=== PATIENT | female | born 2000 | race Caucasian/White ===

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

== ENCOUNTER → 2022-02-07 | Outpatient (CLI) | payer MEDICAID, SELFPAY ==
[2022-02-07 16:40] LABS: Prolactin 27.2 ng/mL; T4 Free Direct 0.91 ng/dL (0.76-1.46); Thyroid Stim Hormone (TSH) 1.76 uIU/mL (0.358-3.74)
[2022-02-07 17:16] LABS: HIV - WCH Non-Reactive (Nonreactive); Syphilis Antibodies Non-reactive
[2022-02-08 15:16] LABS: Hepatitis B Surface Antibody Non-Reactive
[2022-02-09 07:07] LABS: HEPATITIS B SURFACE AG Negative (Negative); Hep C Antibodies <0.1 s/co ratio (0.0-0.9); Hepatitis A IgM Antibody Negative (Negative); Hepatitis B Core AB IgM Negative (Negative)
[2022-02-09 11:06] LABS: Hepatitis A AB, Total Positive (Negative)
== END | disposition home or self-care (01) ==
LOC: WOBLAB 11:14
PROVIDERS: Visit Provider Obstetrics & Gynecology
DX: Z11.3 Encounter for screening for infections with a predominantly sexual mode of transmission (principal); N64.52 Nipple discharge
CPT/HCPCS: 36415; 80074; 84146; 84439; 84443; 86703; 86706; 86708; 86780

== ENCOUNTER → 2022-04-19 | Outpatient (CLI) | payer MEDICAID, SELFPAY ==
[2022-04-19 17:34] LABS: hCG Titer Quant., Serum 1067 mIU/mL (1-3)
== END | disposition home or self-care (01) ==
LOC: WOBLAB 15:27
PROVIDERS: Visit Provider Obstetrics & Gynecology
DX: N91.2 Amenorrhea, unspecified (principal)
CPT/HCPCS: 36415; 84702

== ENCOUNTER → 2022-05-24 | Outpatient (CLI) | payer MEDICAID, SELFPAY ==
[2022-05-24 16:37] LABS: Absolute Lymphocyte Count 1.63 X10^3/uL (0.83-4.51); Absolute Neutrophil Count 2.8 X10^3/uL (2.0-7.7); Basophil# 0.03 X10^3/uL; Basophil% 0.6 % (0-1); Eosinophil# 0.07 X10^3/uL; Eosinophils% 1.4 % (0-5); Hematocrit 37.2 % (37-47); Hemoglobin 12.2 g/dL (12.0-15.0); Lymphocyte # 1.63 X10^3/ul (0.83-4.51); Lymphocyte % 32.5 % (19-41); Mean Corp Hgb Conc 32.8 g/dL (32-36); Mean Corpuscular Hgb 29.9 pg (27.0-32.0); Mean Corpuscular Volume 91.2 fL (81-99); Mean Platelet Vol. 11.4 fl (6.2-12.0); Monocyte# 0.49 X10^3/uL; Monocyte% 9.8 % (0-10); NRBC Flagged by Analyzer 0 % (0-5); Neutrophil # 2.78 X10^3/uL (2.7-7.7); Neutrophil % 55.5 % (47-70); Platelet Count 249 K/mm3 (150-450); RBC Distribution Width CV 13.8 % (11.6-14.6); RBC Distribution Width SD 46.2 fl (35.1-43.9); Red Blood Count 4.08 M/mm3 (4.2-5.4)
[2022-05-24 17:40] LABS: HIV - WCH Non-Reactive (Nonreactive); Hepatitis B Surface Antigen Non-Reactive (Nonreactive); Hepatitis C Antibody Non-Reactive (Nonreactive); Rubella IgG Reactive (Nonreactive); Syphilis Antibodies Non-reactive
[2022-05-26 08:31] LABS: V-Zoster IgG (Immunity) 404 index (Immune >165)
== END | disposition home or self-care (01) ==
LOC: WOBLAB 15:59
PROVIDERS: Visit Provider Obstetrics & Gynecology
DX: Z34.81 Encounter for supervision of other normal pregnancy, first trimester (principal)
CPT/HCPCS: 36415; 85025; 86703; 86762; 86780; 86787; 86803; 87086; 87340

== ENCOUNTER 2022-08-17 10:14 | Emergency (ER) | payer MEDICAID, SELFPAY ==
[2022-08-17 10:15] VITALS: BP 102/58; PULSE 74; RESP 161; TEMP 36.2; O2SAT 99
--- NOTE | 2022-08-17 10:39 | US_ITS ---
HISTORY: stones, pain. TECHNIQUE: Tyler scale and color doppler imaging was performed of the right upper quadrant. 96 images. COMPARISON: None. FINDINGS: LIVER: 15.5 cm in length. Mildly echogenic without focal lesion demonstrated. No intrahepatic ductal dilatation reported. MAIN PORTAL VEIN: Patent with flow in the appropriate direction. COMMON BILE DUCT: 4 mm in diameter. GALLBLADDER: Two 6-7 mm gallstones in the distended gallbladder. 2 mm wall thickness, within normal limits. No pericholecystic fluid. Sonographic Maynard sign negative. PANCREAS: Visualized proximal portion unremarkable. RIGHT KIDNEY: 10.8 cm in length with a cortical thickness of 1.4 cm with a small extrarenal pelvis. No hydronephrosis or gross renal mass demonstrated. US/Gallbladder IMPRESSION: Cholelithiasis with gallbladder distention but no gallbladder wall thickening. Mild hepatic steatosis. Electronically Signed: Leila Thompson MD at 11:53 EDT ,
--- NOTE | 2022-08-17 10:40 | ED.VIS.GI ---
HPI HPI - GI History of Present Illness Chief Complaint: Abd Pain Informant: patient Narrative Narrative: 21-year-old healthy patient who states she has known gallstones from an ultrasound that was obtained in early July at an outside facility because of similar pain that started again this morning at 4 AM along with vomiting, right upper quadrant pain radiating into her right mid upper back. She went to the ED at [place] [place] where she was seen before being transferred here because they do not have ultrasound all weekend, today is Friday. Patient states she is feeling better now that they gave her fentanyl and Zofran. She is 21 weeks , A3 all miscarriages. She denies any lower abdominal pain, vaginal leakage or bleeding. No urinary symptoms. No fevers or chills. No jaundice or pruritus. No confusion or neurologic symptoms. Patient states last night before she went to bed she ate a hamburger. [facility] Medical History Depression Home Medications NK 08/21/18 [History Last Taken Unknown] Allergy/AdvReac Type Severity Reaction Status Date / Time No Known Allergies Allergy Verified 08/17/22 10:14 Social History Smoking Status: Never smoker ROS ROS ED Constitutional Constitutional ED: Denies chills or fever(s) Eyes Eyes: Denies change in vision or diplopia ENT ENT ED: Denies rhinorrhea or sore throat Cardiovascular Cardiovascular: Denies chest pain or palpitations Respiratory/Chest Respiratory/Chest: Denies cough or dyspnea Gastrointestinal Gastrointestinal: Reports abdominal pain, nausea and vomiting; Denies diarrhea Genitourinary Genitourinary ED: Denies dysuria or hematuria Musculoskeletal Musculoskeletal: Reports back pain; Denies neck pain Integumentary Denies abscess or rash Neurologic Neurologic: Denies headache(s), paresthesias or weakness Psychiatric Psychiatric: Denies anxiety or suicidal thoughts EXAM Physical Exam Const Vital Signs: 08/17/22 10:15 08/17/22 12:27 Temperature 97.1 F L Temperature Source Temporal Pulse Rate 74 Respiratory Rate 161 H 16 Blood Pressure 102/58 L Blood Pressure Mean 72 Pulse Ox 99 Oxygen Delivery Method Room Air Positive well nourished and well developed General Appearance ED: well developed and NAD HEENT Reports moist mucous membranes normocephalic and atraumatic Eyes PERRL and EOMs intact bilaterally Neck full ROM and supple Resp normal respiratory effort and clear to auscultation bilaterally Cardio regular rate, regular rhythm and no murmurs GI non-distended GI Narrative: Mildly tender right upper quadrant only, otherwise benign abdomen. Distended to about the umbilicus consistent with second trimester . Auscultation: normoactive bowel sounds Palpation: soft Back/Spine no CVA tenderness General Back: other FROM Extremity normal to inspection General Extremety ED: Negative for edema, pulses abnormal or tenderness General Extremity: Negative for edema or pulses abnormal Neuro oriented x3, CN's II-XII intact bilaterally and no sensory deficits noted Sensorium / Orientation: awake and alert Motor Exam: strength 5/5 throughout Skin no rashes or lesions noted and no wounds MDM MDM MDM Narrative Medical decision making narrative: Records that were sent from the transferring facility were reviewed, but basically includes a problem list, outpatient medications most of which she states she is not on right now, and no labs. Patient confirms that they did blood work and place an IV where they gave her medications. Labs that we obtained appear very reassuring. She has no leukocytosis, no elevated liver enzymes, no hyperbilirubinemia, and her lipase is normal. On reevaluation she is feeling even better than she was before without the need for repeat medications. She is in no pain right now. I obtained an ultrasound of the right upper quadrant, I reviewed the images and the report which I agree with, basically gallstones without any radiographic signs of acute cholecystitis. On reevaluation, she states she has an appointment with a surgeon in [place] as a result of her prior ultrasound for the of this month, that literally is 5 days away. Reassured, discharged, advised to avoid fatty foods and animal meats until she sees surgery and we discussed reasons to return she is comfortable with that plan. Lab Data Attestation: I reviewed the patient's lab results. Labs: Laboratory Results - last 24 hr 08/17/22 10:45 WBC 8.5 RBC 3.21 L Hgb 10.0 L Hct 30.4 L MCV 94.7 MCH 31.2 MCHC 32.9 RDW Std Deviation 47.7 H RDW Coeff of Lorna 13.8 Plt Count 137 L MPV 11.8 Immature Gran % (Auto) 0.400 Neut % (Auto) 76.2 H Lymph % (Auto) 15.6 L [place] % (Auto) 7.1 Eos % (Auto) 0.5 Baso % (Auto) 0.2 Absolute Neuts (auto) 6.5 Absolute Lymphs (auto) 1.32 Nucleated RBC % 0 Sodium 137 Potassium 4.0 Chloride 108 H Carbon Dioxide 24.0 Anion Gap 5 BUN 9 Creatinine 0.56 Est GFR (MDRD) Af Amer 176 Est GFR (MDRD) Non-Af 145 BUN/Creatinine Ratio 15.9 Glucose 79 Calcium 7.6 L Total Bilirubin 0.30 AST 46 H ALT 28 Alkaline Phosphatase 58 Total Protein 5.6 L Albumin 2.4 L Globulin 3.2 Albumin/Globulin Ratio 0.8 L Lipase 28 Radiography Diagnostic Testing: Clinical Impression(s) from Imaging Studies Gallbladder Ultrasound 08/17/22 10:39 IMPRESSION: Cholelithiasis with gallbladder distention but no gallbladder wall thickening. Mild hepatic steatosis. Electronically Signed: Leila Thompson MD at 11:53 EDT , Discharge Plan Triage Chief Complaint: Abd Pain ED Provider: Kristofer Low Dx/Rx/DC Orders Clinical Impression: Second trimester , Cholelithiasis, Biliary colic Instructions: ED Gallstones with Biliary Colic Prescriptions: No Action NK Primary Care Provider: Care Physician,No [facility] - Doctor,Your [Non-Staff] - Keep Mireya appointment (Surgeon that you have an appt with) Activity Restrictions/Additional Instructions: Avoid fatty foods including animal meats as much as you are able.
[2022-08-17 10:53] LABS: Absolute Lymphocyte Count 1.32 X10^3/uL (0.83-4.51); Absolute Neutrophil Count 6.5 X10^3/uL (2.0-7.7); Basophil# 0.02 X10^3/uL; Basophil% 0.2 % (0-1); Eosinophil# 0.04 X10^3/uL; Eosinophils% 0.5 % (0-5); Hematocrit 30.4 % (37-47); Lymphocyte # 1.32 X10^3/ul (0.83-4.51); Lymphocyte % 15.6 % (19-41); Mean Corp Hgb Conc 32.9 g/dL (32-36); Mean Corpuscular Hgb 31.2 pg (27.0-32.0); Mean Corpuscular Volume 94.7 fL (81-99); Mean Platelet Vol. 11.8 fl (6.2-12.0); Monocyte% 7.1 % (0-10); NRBC Flagged by Analyzer 0 % (0-5); Neutrophil # 6.47 X10^3/uL (2.7-7.7); Neutrophil % 76.2 % (47-70); Platelet Count 137 K/mm3 (150-450); RBC Distribution Width CV 13.8 % (11.6-14.6); RBC Distribution Width SD 47.7 fl (35.1-43.9); Red Blood Count 3.21 M/mm3 (4.2-5.4); White Blood Count 8.5 K/mm3 (4.4-11.0)
[2022-08-17 11:08] LABS: ALB/GLOB Ratio 0.8 RATIO (0.9-2.4); AST(SGOT) 46 U/L (15-37); Alanine Aminotransfer ALT/SGPT 28 U/L (13-56); Albumin, Serum 2.4 g/dL (3.2-5.0); Alkaline Phosphatase 58 U/L (45-117); Anion Gap 5 (5-15); BUN 9 mg/dL (7-18); BUN/Creat Ratio 15.9 RATIO (10-20); Calcium,Total 7.6 mg/dL (8.5-10.1); Chloride 108 mmol/L (98-107); Creatinine, Serum 0.56 mg/dL (0.55-1.02); EST Glomerular Filtration Rate 145 mL/min (>60); Est Glom Filt Rate - Afr Amer 176 mL/min (>60); Globulin 3.2 g/dL (2.2-4.2); Glucose 79 mg/dL (74-106); Lipase 28 U/L (13-75); Protein, Total 5.6 g/dL (6.4-8.2); Sodium Level 137 mmol/L (136-145)
[2022-08-17 12:27] VITALS: RESP 16
[2022-08-17 13:28] VITALS: PULSE 78; RESP 18; O2SAT 98
== END 2022-08-17 13:29 | disposition home or self-care (01) ==
PROVIDERS: Emergency Provider Emergency Medicine; Visit Provider Emergency Medicine
DX: O99.612 Diseases of the digestive system complicating pregnancy, second trimester (principal); K80.70 Calculus of gallbladder and bile duct without cholecystitis without obstruction; Z3A.21 21 weeks gestation of pregnancy; O99.891 Other specified diseases and conditions complicating pregnancy; R10.11 Right upper quadrant pain
CPT/HCPCS: 76705; 80053; 83690; 85025; 99284; A4216

== ENCOUNTER 2022-08-29 15:29 | Emergency (ER) | payer MEDICAID, SELFPAY ==
[2022-08-29 15:30] VITALS: BP 104/58; PULSE 61; RESP 14; TEMP 36; O2SAT 100; BMI 23.8
--- NOTE | 2022-08-29 15:42 | US_ITS ---
STUDY: ABDOMINAL ULTRASOUND - RIGHT UPPER QUADRANT REASON FOR VISIT: Female, 21 years old abdominal pain-rt TECHNIQUE: Ultrasound evaluation of the right upper quadrant was performed with real-time and static wang-scale imaging. TECHNICAL QUALITY: Adequate. COMPARISON: August 17, 2022 FINDINGS: Liver: The liver measures 16.7 cm. There is mildly increased echogenicity of the liver. The bile ducts are within normal limits. There is hepatic color flow. The direction of portal flow is hepatopetal. There is no demonstrated mass lesion. Gallbladder: Normal distended gallbladder. The gallbladder wall measures 3 mm. There is a negative sonographic Maynard''s sign. There is no pericholecystic fluid. There are multiple gallstones. Common Bile Duct (C.B.D.): The common bile duct measures 6 mm. Pancreas: Normal size of the head, body and tail of the pancreas. There is normal echogenicity of the pancreas. There is no demonstrated pancreatic mass or cyst. Right Kidney: Normal size of the right kidney. The right kidney measures 11.5 x 6.4 x 4.2 cm. Normal renal cortex. The right cortex measures 1.6 cm. There is no demonstrated renal mass or cyst. There is no right hydronephrosis. US/Gallbladder IMPRESSION: Mild hepatomegaly and fatty infiltrated liver.. Thick-walled gallbladder with stones without definitive evidence for acute inflammation. Common bile duct is upper normal in size without definitive evidence for intraductal stone. If concern for acute cholecystitis HIDA scan recommended Electronically Signed: Steven Alvarez MD at 16:47 EDT ,
--- NOTE | 2022-08-29 15:43 | EX.ED.DYSGE1 ---
HPI History of Present Illness Chief Complaint: Abd Pain Narrative Narrative: Patient presents with epigastric and right upper quadrant pain. She has a history of gallstones. She is also 23 weeks . She however does not have any lower abdominal pain or vaginal bleeding or any kind of vaginal discharge or leaking. She has no urinary symptoms. She did have some nausea. She was treated in the ambulance with fentanyl and I believe antiemetics and her symptoms are improving. No fevers or chills. PFSH PFS Medical History Depression Home Medications NK 08/21/18 [History Last Taken Unknown] Allergy/AdvReac Type Severity Reaction Status Date / Time No Known Allergies Allergy Verified 08/29/22 15:30 Social History Smoking Status: Never smoker ROS ROS ED ROS Narrative Past medical history: Reviewed Medications: Reviewed Social history: Noncontributory Review of systems: General: No fever Eyes: No visual changes ENT: No upper airway congestion, normal voice Neck: No neck pain Cardiovascular: No chest pain Respiratory: No shortness of breath or cough Gastrointestinal: As in HPI Genitourinary: No dysuria, no vaginal bleeding Musculoskeletal: Denies myalgias no difficulty with ambulation Skin: No rash Neurological: No memory loss, confusion or any focal weakness EXAM Physical Exam Narrative Exam Narrative: Physical exam General: Patient appears comfortable as I walk in Head: Normocephalic, Atraumatic Eyes: Conjunctiva not pale ENT: Slightly dry mucous membranes Neck: Supple, Nontender, No lymphadenopathy Cardiovascular: Regular rate, Regular rhythm Respiratory: No distress, CTA bilaterally Abdomen: Soft, gravid right around the umbilicus but no tenderness below the umbilicus or in the uterine region. Most of her pain is epigastric although she does have some slight right upper quadrant abdominal pain. No guarding or rebound. Negative Maynard's. Back: Nontender, Normal Inspection. Negative for: CVA tenderness Extremities: Nontender, No edema Skin: Normal color, No rash Const Vital Signs: 08/29/22 15:30 08/29/22 17:44 Temperature 96.8 F L Temperature Source Temporal Pulse Rate 61 60 Respiratory Rate 14 16 Blood Pressure 104/58 L 96/54 L Blood Pressure Mean 73 68 Pulse Ox 100 100 Oxygen Delivery Method Room Air Room Air MDM MDM MDM Narrative Medical decision making narrative: Patient is found to have gallbladder disease again although the common bile duct is slightly enlarged from last time. Regardless at this time she has negative Maynard's she has normal white count and she does not have elevated transaminases or lipase or bilirubin. She does not have choledocholithiasis, clinically she does not have cholecystitis. She does have gallbladder disease, she told me she did eat some eggs salad. I again went over the diet for her as far as how to avoid repeat gallbladder attacks. I talked to surgery, Dr. Uriarte who can follow her outpatient at this time the plan is still to avoid surgery until after delivery of the baby. This is quite reasonable. She was given analgesia via EMS I did not give her any analgesia in the ED and she has continued to be pain-free and currently she is asymptomatic. We will discharge in stable condition. She does not meet admission criteria or emergent surgical criteria. Lab Data Labs: Laboratory Results - last 24 hr 08/29/22 08/29/22 15:51 17:10 WBC 9.1 RBC 3.23 L Hgb 9.8 L Hct 30.8 L MCV 95.4 MCH 30.3 MCHC 31.8 L RDW Std Deviation 47.0 H RDW Coeff of Lorna 13.4 Plt Count 142 L MPV 12.2 H Immature Gran % (Auto) 0.300 Neut % (Auto) 78.5 H Lymph % (Auto) 13.8 L [place] % (Auto) 6.4 Eos % (Auto) 0.8 Baso % (Auto) 0.2 Absolute Neuts (auto) 7.2 Absolute Lymphs (auto) 1.26 Nucleated RBC % 0 Sodium 138 Potassium 3.9 Chloride 108 H Carbon Dioxide 23.0 Anion Gap 7 BUN 8 Creatinine 0.52 L Estim Creat Clear Calc 143.95 Est GFR (MDRD) Af Amer 196 Est GFR (MDRD) Non-Af 162 BUN/Creatinine Ratio 15.5 Glucose 77 Calcium 7.7 L Total Bilirubin 0.40 AST 17 ALT 19 Alkaline Phosphatase 54 Total Protein 5.6 L Albumin 2.5 L Globulin 3.1 Albumin/Globulin Ratio 0.8 L Lipase 25 Urine Color Yellow Urine Clarity Sl. Cloudy Urine pH 6.0 Ur Specific [place] 1.020 Urine Protein 15 H Urine Glucose (UA) Normal Urine Ketones 50 H Urine Occult Blood Negative Urine Nitrite Negative Urine Bilirubin Negative Urine Urobilinogen Normal Ur Leukocyte Esterase 25 H Urine RBC 0 SEEN Urine WBC 0-5 SEEN Ur Squamous Epith Cells 0-5 SEEN Urine Bacteria Not Reportable Urine Mucus 1+ Radiography Diagnostic Testing: Clinical Impression(s) from Imaging Studies Gallbladder Ultrasound 08/29/22 15:42 IMPRESSION: Mild hepatomegaly and fatty infiltrated liver.. Thick-walled gallbladder with stones without definitive evidence for acute inflammation. Common bile duct is upper normal in size without definitive evidence for intraductal stone. If concern for acute cholecystitis HIDA scan recommended Electronically Signed: Steven Alvarez MD at 16:47 EDT , Discharge Plan Triage Chief Complaint: Abd Pain ED Provider: Jimmy Anna Dx/Rx/DC Orders Clinical Impression: Second trimester , Disease of gallbladder Instructions: Gallstones Dc Prescriptions: No Action NK Primary Care Provider: Care Physician,No Primary Referrals: Puneet Uriarte MD [Med Staff - Active Staff] - 3-5 Days Care Physician,No Primary [Primary Care Provider] - Disposition Disposition: Home, Self Care
[2022-08-29 16:01] LABS: Absolute Lymphocyte Count 1.26 X10^3/uL (0.83-4.51); Absolute Neutrophil Count 7.2 X10^3/uL (2.0-7.7); Basophil# 0.02 X10^3/uL; Basophil% 0.2 % (0-1); Eosinophil# 0.07 X10^3/uL; Eosinophils% 0.8 % (0-5); Hematocrit 30.8 % (37-47); Hemoglobin 9.8 g/dL (12.0-15.0); Lymphocyte # 1.26 X10^3/ul (0.83-4.51); Lymphocyte % 13.8 % (19-41); Mean Corp Hgb Conc 31.8 g/dL (32-36); Mean Corpuscular Hgb 30.3 pg (27.0-32.0); Mean Corpuscular Volume 95.4 fL (81-99); Mean Platelet Vol. 12.2 fl (6.2-12.0); Monocyte# 0.58 X10^3/uL; Monocyte% 6.4 % (0-10); NRBC Flagged by Analyzer 0 % (0-5); Neutrophil # 7.17 X10^3/uL (2.7-7.7); Neutrophil % 78.5 % (47-70); Platelet Count 142 K/mm3 (150-450); RBC Distribution Width CV 13.4 % (11.6-14.6); Red Blood Count 3.23 M/mm3 (4.2-5.4); White Blood Count 9.1 K/mm3 (4.4-11.0)
[2022-08-29 16:18] LABS: ALB/GLOB Ratio 0.8 RATIO (0.9-2.4); AST(SGOT) 17 U/L (15-37); Alanine Aminotransfer ALT/SGPT 19 U/L (13-56); Albumin, Serum 2.5 g/dL (3.2-5.0); Alkaline Phosphatase 54 U/L (45-117); Anion Gap 7 (5-15); BUN 8 mg/dL (7-18); BUN/Creat Ratio 15.5 RATIO (10-20); Calcium,Total 7.7 mg/dL (8.5-10.1); Chloride 108 mmol/L (98-107); Creatinine, Serum 0.52 mg/dL (0.55-1.02); EST Glomerular Filtration Rate 162 mL/min (>60); Est Glom Filt Rate - Afr Amer 196 mL/min (>60); Estimated Creatinine Clearance 143.95 ml/min; Globulin 3.1 g/dL (2.2-4.2); Glucose 77 mg/dL (74-106); Lipase 25 U/L (13-75); Potassium 3.9 mmol/L (3.5-5.1); Protein, Total 5.6 g/dL (6.4-8.2); Sodium Level 138 mmol/L (136-145)
--- NOTE | 2022-08-29 16:28 | CM.ED ---
Social Work Note Referral Source: case find Referral Reason: no PCP SW met with patient and introduced herself and role as [facility] Machine Tester. Patient lying on hospital bed and agreeable to speak with SW. SW inquired about patient's insurance and current PCP. Patient verified insurance and reports no current PCP. SW provided patient with a list of local PCPs in network with patient's insurance and accepting new patients. Patient was receptive towards list and voiced no other needs. SW remains available if needs arise. Adriana Ward MSW, ALLI
[2022-08-29 17:20] LABS: Red Blood Cells-Urine 0 SEEN /hpf (0-5)
[2022-08-29 17:24] LABS: Color, Urine Yellow (Yellow); Glucose, Dipstick Normal (Normal); Ketone-Dipstick 50 mg/dl (Negative); Leukocyte Esterase-Dipstick 25 /ul (Negative); Nitrite-Dipstick Negative (Negative); Occult Blood-Urine Negative /ul (Negative); Protein-Dipstick 15 mg/dl (Negative); Urine Bilirubin Dipstick Negative (Negative); Urine Clarity Sl. Cloudy (Clear); Urine Urobilinogen Normal (Normal)
[2022-08-29 17:44] VITALS: BP 96/54; PULSE 60; RESP 16; O2SAT 100
[2022-08-29 17:45] LABS: Mucous, Urine 1+ /hpf (<or=2+); Squamous Epithelial Cells - UA 0-5 SEEN /hpf (5-10); White Blood Cells 0-5 SEEN /hpf (0-5)
[2022-08-29 17:57] VITALS: BP 108/71; PULSE 72; RESP 15; O2SAT 98
== END 2022-08-29 17:58 | disposition home or self-care (01) ==
PROVIDERS: Emergency Provider Emergency Medicine; Visit Provider Emergency Medicine
DX: O99.612 Diseases of the digestive system complicating pregnancy, second trimester (principal); O99.891 Other specified diseases and conditions complicating pregnancy; K82.9 Disease of gallbladder, unspecified; Z3A.23 23 weeks gestation of pregnancy; Z87.19 Personal history of other diseases of the digestive system
CPT/HCPCS: 76705; 80053; 81001; 83690; 85025; 99285; A4216

== ENCOUNTER → 2022-09-24 | Outpatient (CLI) | payer MEDICAID, SELFPAY ==
[2022-09-24 16:37] LABS: Absolute Lymphocyte Count 1.26 X10^3/uL (0.83-4.51); Absolute Neutrophil Count 3.7 X10^3/uL (2.0-7.7); Basophil# 0.02 X10^3/uL; Basophil% 0.4 % (0-1); Eosinophil# 0.06 X10^3/uL; Eosinophils% 1.1 % (0-5); Hematocrit 30.4 % (37-47); Hemoglobin 9.6 g/dL (12.0-15.0); Lymphocyte # 1.26 X10^3/ul (0.83-4.51); Lymphocyte % 22.6 % (19-41); Mean Corp Hgb Conc 31.6 g/dL (32-36); Mean Corpuscular Hgb 29.9 pg (27.0-32.0); Mean Corpuscular Volume 94.7 fL (81-99); Mean Platelet Vol. 12.7 fl (6.2-12.0); Monocyte# 0.55 X10^3/uL; Monocyte% 9.9 % (0-10); NRBC Flagged by Analyzer 0 % (0-5); Neutrophil # 3.67 X10^3/uL (2.7-7.7); Neutrophil % 65.8 % (47-70); Platelet Count 132 K/mm3 (150-450); RBC Distribution Width CV 13.1 % (11.6-14.6); RBC Distribution Width SD 45.2 fl (35.1-43.9); Red Blood Count 3.21 M/mm3 (4.2-5.4); White Blood Count 5.6 K/mm3 (4.4-11.0)
[2022-09-24 16:42] LABS: Glucose Challenge Gest 1H 50g 93 mg/dL (70-140)
[2022-09-24 17:09] LABS: Syphilis Antibodies Non-reactive
== END | disposition home or self-care (01) ==
LOC: WOBLAB 14:03
PROVIDERS: Visit Provider Obstetrics & Gynecology
DX: Z34.83 Encounter for supervision of other normal pregnancy, third trimester (principal); Z3A.00 Weeks of gestation of pregnancy not specified
CPT/HCPCS: 36415; 82950; 85025; 86780

== ENCOUNTER → 2022-10-09 | Outpatient (CLI) | payer MEDICAID, SELFPAY | END | disposition home or self-care (01) | PROVIDERS: Visit Provider Obstetrics & Gynecology | DX: Z34.83 Encounter for supervision of other normal pregnancy, third trimester (principal); Z3A.00 Weeks of gestation of pregnancy not specified | CPT/HCPCS: 36415; 86850 ==

== ENCOUNTER 2022-11-12 09:20 | Outpatient (CLI) | payer MEDICAID, SELFPAY ==
[2022-11-12 09:30] VITALS: BMI 25.7
[2022-11-12 09:34] VITALS: TEMP 36.4
[2022-11-12 09:36] VITALS: BP 110/72; PULSE 96
--- NOTE | 2022-11-19 10:56 | OB.TRI.NOTE ---
HPI - General HPI Narrative KEAGAN ALICIA, is a 22 F who presents Maternal Data Information Final LUZ: 12/25/22 Gestational age: 33&6 PFSH PFSH Medical History Depression Home Medications ferrous sulfate 325 mg (65 mg iron) tablet (Feosol) 325 mg PO QODAY 11/12/22 [History Last Taken 11/11/22] vit no.95-ferrous fumarate 28 mg-folic acid 800 mcg tablet () 1 tab PO DAILY 11/12/22 [History Last Taken 11/11/22] Allergy/AdvReac Type Severity Reaction Status Date / Time No Known Allergies Allergy Verified 11/12/22 09:33 Social History Smoking Status: Never smoker History Elective abortions Hx Para 0 Spontaneous abortions Hx # Term Pregnancies Ectopic pregnancies Hx # Pregnancies Multiple births # of living children NST FHR Rate Baby A Baseline: 135 Variability:: Moderate Accelerations:: 15 x 15 Decelerations:: Variable Uterine Activity:: irregular Assessment & Plan (1) Threatened labor: QUALIFIERS: Trimester: third trimester Qualified Code(s): O47.03 - False labor before 37 completed weeks of gestation, third trimester PLAN: Plan Reactive NST
== END 2022-11-12 10:08 | disposition home or self-care (01) ==
LOC: WPOUT 09:27 → WP 09:27
PROVIDERS: Referring Provider Obstetrics & Gynecology; Visit Provider Obstetrics & Gynecology
DX: O47.03 False labor before 37 completed weeks of gestation, third trimester (principal); Z3A.00 Weeks of gestation of pregnancy not specified
CPT/HCPCS: 59025; 59050; 99221; G0378

== ENCOUNTER 2022-12-15 11:30 | Inpatient (IN) | payer MEDICAID, SELFPAY ==
[2022-12-15] VITALS (70 sets, daily range): BP systolic 109–152; BP diastolic 55–90; PULSE 65–164; TEMP 36.3–36.8; O2SAT 93–100; BMI 28.4
[2022-12-15 11:25] LABS: ROM Internal Control Test YES-OK TO RESULT pt. (Internal QC)
[2022-12-15 11:26] LABS: ROM Patient Test POSITIVE (Negative); Record Kit Lot#, ROM+ K1409
--- NOTE | 2022-12-15 11:50 | PCM.HP.OB ---
HPI - General General Date of Admission: 12/15/22 Date of Service: 12/15/22 Chief Complaint: SROM HPI Narrative KEAGAN ALICIA, is a 22 F who presents with SROM. She is a at 38w4d who presents after SROM on 12.14.22 at 0400. She states she woke up in fluid. Continued to leak fluid. Contractions started yesterday. They are not increasing in intensity. No bleeding. Good FM. She offers no other complaints. PFSH PFS Medical History Depression Home Medications ferrous sulfate 325 mg (65 mg iron) tablet (Feosol) 325 mg PO QODAY 11/12/22 [History Last Taken 12/14/22] vit no.95-ferrous fumarate 28 mg-folic acid 800 mcg tablet () 1 tab PO DAILY 11/12/22 [History Last Taken 12/14/22] Allergy/AdvReac Type Severity Reaction Status Date / Time No Known Allergies Allergy Verified 11/12/22 09:33 Social History Smoking Status: Current every day smoker History Elective abortions Hx Para 1 Spontaneous abortions Hx # Term Pregnancies Ectopic pregnancies Hx # Pregnancies Multiple births # of living children NST FHR Rate Baby A Baseline: 120 Variability:: Moderate Accelerations:: 15 x 15 Decelerations:: None NST Reactive:: Yes FHR Category:: Category I Uterine Activity:: q 2-4 min Vital Signs Vital Signs Vital Signs: 12/15/22 10:41 12/15/22 10:41 12/15/22 10:41 Temperature Temperature Source Pulse Rate 83 Blood Pressure 131/85 H BP Systolic 131 BP Diastolic 85 Pulse Ox 99 12/15/22 10:42 12/15/22 10:42 Temperature 97.3 F L Temperature Source Temporal Pulse Rate Blood Pressure BP Systolic BP Diastolic Pulse Ox Weight Weight: 160 lb 6 oz Body Mass Index (BMI) 28.4 Labs Labs Labs: Blood Type A NEGATIVE Antibody Screen NEGATIVE Hct 30.4 % (37-47) L Hgb 9.6 g/dL (12.0-15.0) L Syphilis Total Ab Non-reactive VZV IgG Antibody 404 index (Immune >165) Rubella IgG Antibody Reactive (Nonreactive) Hep Bs Antigen Non-Reactive (Nonreactive) Hepatitis C Antibody Non-Reactive (Nonreactive) Hepatitis C Ab (EIA) <0.1 s/co ratio (0.0-0.9) Chlamydia DNA (SHYAM) Negative (Negative) N.gonorrhoeae DNA (SHYAM) Negative (Negative) HIV 1&2 Antibody Non-Reactive (Nonreactive) Glucose 1 Hr 50 gm 93 mg/dL (70-140) Rhogam given: No Assessment & Plan (1) 38 weeks gestation of : PLAN: Transfer from [place] at 31 weeks gestation (2) SROM (spontaneous rupture of membranes): PLAN: ROM plus positive on admission. Pitocin per protocol for augmentation. Epidural as needed for pain. GBS negative. Estimated weight expected to be < 4500 g and pelvis adequate. Routine intrapartum care. Anticipate vaginal delivery. (3) Rh negative status during : (4) History of depression: (5) History of anxiety: (6) History of delivery:
[2022-12-15 12:32] LABS: Absolute Lymphocyte Count 1.33 X10^3/uL (0.83-4.51); Basophil# 0.02 X10^3/uL; Basophil% 0.3 % (0-1); Eosinophil# 0.07 X10^3/uL; Hematocrit 37.4 % (37-47); Hemoglobin 11.5 g/dL (12.0-15.0); Lymphocyte # 1.33 X10^3/ul (0.83-4.51); Lymphocyte % 18.9 % (19-41); Mean Corp Hgb Conc 30.7 g/dL (32-36); Mean Corpuscular Hgb 27.1 pg (27.0-32.0); Mean Corpuscular Volume 88.2 fL (81-99); Monocyte# 0.56 X10^3/uL; NRBC Flagged by Analyzer 0 % (0-5); Neutrophil # 5.01 X10^3/uL (2.7-7.7); Neutrophil % 71.4 % (47-70); Platelet Count 120 K/mm3 (150-450); RBC Distribution Width SD 55.3 fl (35.1-43.9); Red Blood Count 4.24 M/mm3 (4.2-5.4)
[2022-12-15 12:54] LABS: Syphilis Antibodies Non-reactive
[2022-12-15] MEDS: Lactated Ringers 1,000 ML 50 ML IV (13:12)
[2022-12-15] MEDS: Oxytocin 15 Units/NS 250ml 15 UNITS/250 ML IV.SOLN 2 UNITS IV (13:13)
[2022-12-15] MEDS: Acetaminophen 500 MG Tablet PO (16:49)
[2022-12-15] MEDS: LACTATED RINGERS 500 ML 999 ML IV (19:28)
[2022-12-15] MEDS: fentaNYL-bupivacaine (epidural) 100 ML BAG EPIDURAL (20:46)
--- NOTE | 2022-12-15 21:11 | PCM.PN.OB ---
Subjective Subjective comfortable with epidural, denying pain, just shakey Objective Data Objective Data Cat 1 tracing, SVE 7-8 BBOW, AROM for mod amt blood tinged clear fluid Vital Signs: Vital Signs Temp Pulse BP Pulse Ox 97.4 F L 107 H 110/60 100 12/15/22 21:00 12/15/22 21:09 12/15/22 21:05 12/15/22 21:09 Weight: 160 lb 6 oz Body Mass Index (BMI) 28.4 Intake & Output: Intake and Output for Last 24 Hours 12/13/22 12/14/22 12/15/22 23:59 23:59 22:59 Intake Total 917.89 / 917.89 Output Total 100 / 100 Balance 817.89 / 817.89 Lab / Micro Data 12/15/22 12:05 Labs: Laboratory Results - last 24 hr 12/15/22 10:50: Vag Amniotic Fld Detect POSITIVE H 12/15/22 12:05: WBC 7.0, RBC 4.24, Hgb 11.5 L, Hct 37.4, MCV 88.2, MCH 27.1, MCHC 30.7 L, RDW Std Deviation 55.3 H, RDW Coeff of Lorna 18.0 H, Plt Count 120 L, Immature Gran % (Auto) 0.400, Neut % (Auto) 71.4 H, Lymph % (Auto) 18.9 L, [place] % (Auto) 8.0, Eos % (Auto) 1.0, Baso % (Auto) 0.3, Absolute Neuts (auto) 5.0, Absolute Lymphs (auto) 1.33, Nucleated RBC % 0, Syphilis Total Ab Non-reactive, Blood Type A NEGATIVE, Antibody Screen POSITIVE, Antibody Identification ANTI-D Physical Exam Manual OB Exam: presentation cephalic, dilated 7-8 cm , effaced 90 and station 0 Amniotic Fluid: clear amniotic fluid and other AROM NST FHR Rate Baby A Baseline: 135 Variability:: Moderate Accelerations:: 15 x 15 Decelerations:: None FHR Category:: Category I Uterine Activity:: every 2 min strong Assessment & Plan (1) SROM (spontaneous rupture of membranes): (2) 38 weeks gestation of : PLAN: Plan 1. Active labor progressing, AROM Clear fluid 2) Anticipate vaginal delivery soon 3) update on labor status
--- NOTE | 2022-12-15 22:00 | EX.PCM.OBRPT ---
Maternal Data Information LUZ Calculator Estimated Delivery Date Method Current WG Current Estimate 12/25/22 Manual 38w 4d Final LUZ: 12/25/22 Vaginal Delivery Maternal Presentation Maternal Presentation: Spontaneous Rupture of Membranes Type of Induction: Pitocin (augmentation) Operative Information Date of Procedure: 12/15/22 Pre-Operative Diagnosis: SROM Post-Operative Diagnosis: first degree perineal laceration Surgery / Procedure Performed: Spontaneous Vaginal Delivery Type of Anesthesia: Epidural Estimated Blood Loss: 300ml Time of Delivery: 21:30 Findings Description of Procedure: Progressed to complete with urge to push. Epidural for pain management. of viable female infant over first degree perineal laceration. APGARS 8 , 9 respectively. Infant head delivered with body not forthcoming. Head of bed lowered, Ella position with Suprapubic pressure applied. Attempted removal of posterior arm, delivered with Gale maneuver. Shoulder dystocia lasted approximately 1 min 35 seconds respectively. Placed on maternal abdomen, strong cry. Mouth and nares suctioned for secretions. Pitocin started for active 3rd stage management. Cord doubly clamped and cut by FOB after pulsations ceased, delayed cord clamping. Placenta delivered intact via castillo, 3 vessel cord intact. Perineum inspected and revealed first degree perineal laceration. Repaired with 3.0 vicryl rapide and epidural. Fundus firm and hemostasis achieved. EBL 300 ml. Mom and baby stable, planning to breastfed. Family bonding well. notified of delivery.Yuko MASTERSON present for delivery Presentation: Vertex and CLAUDIA Amniotic Membrane Rupture Type: Artificial Amniotic Fluid Description: Clear Placental Delivery Description: Spontaneous Placenta Disposition: [facility] Cord Vessel Description: 3 Vessels Cord Entanglement: Around neck x 1, loose A Gender: Female (1 minute): 8 (5 minute): 9 Delayed Cord Clamping: Yes Post Vaginal Delivery Medications Given After Delivery: IV Pitocin Episiotomy Description: None Laceration: Perineal Extension/lac and 1st degree Complication Complications: - (Shoulder Dystocia)
[2022-12-15] MEDS: Oxytocin 15 Units/NS 250ml 15 UNITS/250 ML IV.SOLN 83 UNITS IV (22:10)
[2022-12-16] VITALS (7 sets, daily range): BP systolic 104–126; BP diastolic 59–80; PULSE 64–98; RESP 16–18; TEMP 36.3–36.6; O2SAT 96–98
[2022-12-16] MEDS: Ibuprofen 600 MG Tablet PO ×3 (00:19→23:22)
[2022-12-16] MEDS: Acetaminophen 500 MG Tablet 1000 MG PO (07:19)
--- NOTE | 2022-12-16 08:54 | PN.OBGYN_ITS ---
Subjective Subjective Patient complains of new onset headache, worse with sitting up. No visual changes. Headache is better when she lies down. She denies any nausea or vomiting. Objective Data Objective Data Vital Signs: Vital Signs Temp Pulse Resp BP Pulse Ox O2 Del Method 97.5 F L 82 16 126/77 H 97 Room Air 12/16/22 07:47 12/16/22 07:47 12/16/22 07:47 12/16/22 07:47 12/16/22 07:47 12/16/22 07:47 Oxygen Delivery Method Room Air Weight: 72.745 kg Body Mass Index (BMI) 28.4 Intake & Output: Intake and Output for Last 24 Hours 12/15/22 12/15/22 12/16/22 00:59 23:59 23:59 Intake Total 250 / 250 Output Total 1000 / 1000 Balance -750 / -750 Lab / Micro Data 12/15/22 12:05 Labs: Laboratory Results - last 24 hr 12/15/22 10:50: Vag Amniotic Fld Detect POSITIVE H 12/15/22 12:05: WBC 7.0, RBC 4.24, Hgb 11.5 L, Hct 37.4, MCV 88.2, MCH 27.1, MCHC 30.7 L, RDW Std Deviation 55.3 H, RDW Coeff of Lorna 18.0 H, Plt Count 120 L, Immature Gran % (Auto) 0.400, Neut % (Auto) 71.4 H, Lymph % (Auto) 18.9 L, [place] % (Auto) 8.0, Eos % (Auto) 1.0, Baso % (Auto) 0.3, Absolute Neuts (auto) 5.0, Absolute Lymphs (auto) 1.33, Nucleated RBC % 0, Syphilis Total Ab Non-reactive, Blood Type A NEGATIVE, Antibody Screen POSITIVE, Antibody Identification ANTI-D 12/16/22 00:40: Screen NEGATIVE, Baby's Blood Type A POSITIVE, Baby's [place] NEGATIVE Physical Exam Narrative 2+ DTRs, no clonus Const alert and no apparent distress Narrative: Fundus firm, below umbilicus. Assessment & Plan (1) (spontaneous vaginal delivery): PLAN: day #1 status post vaginal delivery. Patient with new onset headache. Blood pressure stable. No hyperreflexia. Seems more consistent with a spinal headache than a preeclampsia headache. Will give some caffeine, NSAIDs and monitor closely. May need to consult anesthesia if not significantly improving by tonight or tomorrow.
[2022-12-16] MEDS: Caffeine 200 MG Tablet 400 MG PO (09:42)
[2022-12-16] MEDS: Acetaminophen/Butalbital/Caffe 1 Tablet PO ×2 (13:58→20:14)
[2022-12-17 02:00] VITALS: BP 121/80; PULSE 87; RESP 16; TEMP 36.4; O2SAT 97
[2022-12-17] MEDS: Acetaminophen/Butalbital/Caffe 1 Tablet PO (06:59)
[2022-12-17 08:26] VITALS: BP 117/75; PULSE 71; RESP 16; TEMP 36; O2SAT 98
[2022-12-17 09:12] VITALS: BP 122/72; PULSE 81; RESP 16; O2SAT 99
[2022-12-17 09:39] VITALS: BP 130/77; PULSE 78; RESP 13; O2SAT 97
[2022-12-17] MEDS: Lactated Ringers 1,000 ML 999 ML IV (09:45)
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
[2022-12-17] MEDS: Ibuprofen 600 MG Tablet PO (10:27)
--- NOTE | 2022-12-17 10:33 | PCM.DC.SUM ---
Providers Date of Admission: 12/15/22 Primary Care Physician: Tana Primary Care Phys Reason For Visit: VAG Diagnosis Discharge Diagnosis (1) (spontaneous vaginal delivery): Status: Acute Code(s): O80 - Encounter for full-term uncomplicated delivery Plan 1. Active labor progressing, AROM Clear fluid 2) Anticipate vaginal delivery soon 3) update on labor status Medications at Discharge Home Medications ferrous sulfate 325 mg (65 mg iron) tablet (Feosol) 325 mg PO QODAY 11/12/22 vit no.95-ferrous fumarate 28 mg-folic acid 800 mcg tablet () 1 tab PO DAILY 11/12/22 Hospital Course Summary of Care Provided Minutes Spent on Discharge: 15 Weight / BMI Weight Weight: 160 lb 6 oz Body Mass Index (BMI) 28.4 ABG / Lab / Microbiology Data 12/15/22 12:05 D/C Instructions Discharge Diet: No restrictions Discharge Activity: Return to Normal Activity, May Drive, May Shower and May Take a Tub Bath May resume sexual activity in: 6 weeks Weight Bearing Status: Full weight bearing Call your doctor if you observe: Fever of 101 or Higher, Inability to urinate, Inability to have a bowel movement, Using more than 1 pad per hour, Shortness of breath, Chest pain, Increased palpitations (irregular heartbeat) and Calf discomfort Please Follow Up With: Jaquelin Galindo CNM When: 2 weeks and 6 weeks Meaningful Use Info Meaningful Use Diagnoses (Choose all that apply): None applicable Discharge Plan Admission Admit Date/Time: 12/15/22 11:30 Primary Reason for Your Visit: Vaginal Attending Provider: Jaquelin Galindo Primary Care Provider: Care Physician,Tana Primary Discharge Orders/Prescriptions Prescriptions: No Action PNV cmb#95-ferrous fumarate-FA [] 28 mg iron- 800 mcg tablet 1 tab PO DAILY Patient Comments: TAKE 1 TABLET BY MOUTH EVERY DAY ferrous sulfate [Feosol] 325 mg (65 mg iron) tablet 325 mg PO QODAY Referrals / Follow Up: Jaquelin Galindo CNM [Med Staff - Adv Practice Prof] - (2 week and 6 week PP visit) Care Physician,Tana Primary [Primary Care Provider] - Disposition Disposition (needs filled in before D/C Order can be placed): Home, Self Care
--- NOTE | 2022-12-17 10:38 | NURSING ---
0971 Dr. Escobar in room for blood patch procedure
--- NOTE | 2022-12-17 10:47 | PCM.PN.OB ---
Subjective Subjective Doing well per patient and nursing staff. Ambulating and taking PO without difficulty. Voiding and passing flatus. Pain controlled. , services for assistance. Complaint of headache since after delivery, no visual changes, chest pain, shortness of breath, leg pain or increased bleeding. Has tried fioricet, abdominal binder, and hydration. Laying down makes it better. Lochia normal. Objective Data Objective Data Vital Signs: Vital Signs Temp Pulse Resp BP Pulse Ox O2 Del Method 96.8 F L 78 13 130/77 H 97 Room Air 12/17/22 08:26 12/17/22 09:39 12/17/22 09:39 12/17/22 09:39 12/17/22 09:39 12/17/22 09:39 Oxygen Delivery Method Room Air Weight: 160 lb 6 oz Body Mass Index (BMI) 28.4 Intake & Output: Intake and Output for Last 24 Hours 12/15/22 12/16/22 12/17/22 23:59 23:59 23:59 Intake Total 250 / 250 Output Total 1000 / 1000 Balance -750 / -750 Lab / Micro Data 12/15/22 12:05 ROS Constitutional Constitutional: Reports systems reviewed and no addt'l complaints, except as documented Eyes Eyes: Denies acute decrease in peripheral vision, blurry vision or change in vision ENT HEENT: Reports systems reviewed and no addt'l complaints, except as documented Cardiovascular Cardiovascular: Denies chest pain or dizziness Respiratory/Chest Respiratory/Chest: Denies cough, dyspnea, dyspnea on exertion, shortness of breath at rest or shortness of breath with exertion Gastrointestinal Gastrointestinal: Denies abdominal pain, diarrhea, nausea or vomiting Genitourinary Genitourinary: Denies abdominal discomfort Musculoskeletal Musculoskeletal: Denies limited range of motion Integumentary Integumentary: Reports systems reviewed and no addt'l complaints, except as documented Neurologic Neurologic: Reports systems reviewed and no addt'l complaints, except as documented Psychiatric Psychiatric: Reports systems reviewed and no addt'l complaints, except as documented Endocrine Endocrinology: Reports systems reviewed and no addt'l complaints, except as documented Hematologic/Lymphatic Hematologic/Lymphatic: Reports systems reviewed and no addt'l complaints, except as documented Allergic/Immunologic Allergic/Immunologic: Reports systems reviewed and no addt'l complaints, except as documented Physical Exam Const alert and oriented x3 General Appearance: cooperative Orientation / Consciousness: awake, oriented to person, oriented to place and oriented to time Exam Limitations: no limitations HEENT normocephalic Head and Scalp: normal to inspection, normocephalic and atraumatic Face and Sinus: normal facial exam Eyes General Eye: normal appearance of both eyes Neck full ROM Chest Chest: symmetrical chest wall rise Resp normal respiratory effort and normal air movement Auscultation: clear to auscultation bilaterally Cardio regular rate, regular rhythm, S1 normal heart sound, S2 normal heart sound, no murmurs, no rub, no gallops and no clicks GI normal to inspection, nondistended, normoactive bowel sounds and non-tender appearance of the vagina normal Bladder / Kidney Exam: no CVA tenderness Back/Spine normal ROM Extremity normal to inspection and full ROM Skin no rashes or lesions noted Neuro oriented x3 and moves all extremities Sensorium / Orientation: awake, alert and oriented to person Assessment & Plan (1) (spontaneous vaginal delivery): (2) Shoulder dystocia during labor and delivery: (3) First degree perineal laceration: PLAN: Plan 1) Routine PP care, PPD#2 2) Pain management, anesthesia consult for spinal headache and blood patch 3) Planning D/C home today 4) Follow up in 2 weeks and 6 weeks PP
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
== END 2022-12-17 12:05 | disposition home or self-care (01) | DRG 807 ==
LOC: OBT 11:30 → WP 11:30
PROVIDERS: Admitting Provider Advanced Practice Midwife; Referring Provider Advanced Practice Midwife; Visit Provider Advanced Practice Midwife
DX: O99.334 Smoking (tobacco) complicating childbirth (principal); Z37.0 Single live birth; F17.200 Nicotine dependence, unspecified, uncomplicated; G97.1 Other reaction to spinal and lumbar puncture; O89.4 Spinal and epidural anesthesia-induced headache during the puerperium; O66.0 Obstructed labor due to shoulder dystocia; O70.0 First degree perineal laceration during delivery; Z3A.38 38 weeks gestation of pregnancy
CPT/HCPCS: 59025; 59050; 84112; 85025; 85461; 86780; 86850; 86870; 86900; 86901; 99221; J7120; G0378; J2790

== ENCOUNTER 2023-06-22 09:31 | Emergency (ER) | payer MEDICAID, SELFPAY ==
[2023-06-22 09:33] VITALS: BP 120/90; PULSE 81; RESP 16; TEMP 36.3; O2SAT 99; BMI 22.2
--- NOTE | 2023-06-22 10:14 | RAD_ITS ---
STUDY: X-RAY CHEST REASON FOR EXAM: Female, 22 years old. chest pain TECHNIQUE: Single AP portable view of the chest. COMPARISON: None. FINDINGS: EKG leads overlie the chest The lungs are clear and expanded. There is no demonstrated pleural abnormality. Normal size heart. Normal mediastinum and clovis. Normal visualized pulmonary arteries. Normal visualized aortic arch and descending thoracic aorta. Normal visualized thoracic spine. Normal visualized ribs, clavicles, and shoulders. There is no demonstrated abnormality of the visualized soft tissue structures of the upper abdomen. RAD/Chest 1 View (Portable) IMPRESSION: Normal x-ray examination of the chest. Electronically Signed: Alec Herrera MD at 11:24 EDT ,
--- NOTE | 2023-06-22 10:16 | ED.VIS.CHEST ---
HPI History of Present Illness Chief Complaint: Chest Pain [facility] Medical History (Updated 06/22/23 @ 09:41 by Danielle Tristan) Anxiety Depression depression Pulmonary embolism Home Medications ferrous sulfate 325 mg (65 mg iron) tablet (Feosol) 325 mg PO QODAY 11/12/22 [History Last Taken 12/14/22] vit no.95-ferrous fumarate 28 mg-folic acid 800 mcg tablet () 1 tab PO DAILY 11/12/22 [History Last Taken 12/14/22] Allergy/AdvReac Type Severity Reaction Status Date / Time No Known Allergies Allergy Verified 06/22/23 09:40 Family History (Updated 12/15/22 @ 13:29 by Fátima Dexter) Father Drug abuse Surgical History (Updated 06/22/23 @ 09:41 by Danielle Tristan) History of tonsillectomy and adenoidectomy Hx of cholecystectomy Social History Smoking Status: Current every day smoker tobacco type: e-cigarettes EXAM Physical Exam Const Vital Signs: 06/22/23 09:33 06/22/23 09:41 Temperature 97.3 F L Temperature Source Oral Pulse Rate 81 Respiratory Rate 16 Respiratory Effort Normal Non-Labored Blood Pressure 120/90 H Blood Pressure Mean 100 Pulse Ox 99 Oxygen Delivery Method Room Air MDM MDM MDM Narrative Medical decision making narrative: HISTORY OF PRESENT ILLNESS: 22-year-old F presents with chest pain. Notes this started last night. Patient denies sudden onset of pain, no tearing sensation, no migratory symptoms, no new numbness, weakness or loss of sensation. Patient denies family history or personal history of Marfan syndrome or Hailee-Danlos. The patient denies recent surgery in the last 4 weeks or immobilization in the last 3 days, denies previous diagnosis of DVT or PE, hemoptysis, unilateral leg swelling or malignancy with treatment the last 6 months. No estrogen use noted. REVIEW OF SYSTEMS: All other systems reviewed and are negative except as noted in the history of present illness. At least 10 review of systems reviewed and are negative except as noted in history of present illness. PHYSICAL EXAM: Nursing triage notes reviewed, Vital signs reviewed Constitutional: please see mdm HENT: MMM Eyes: Pupils equal round and reactive to light, Extraocular muscles intact Neck: No stridor, no JVD, full neck ROM Lungs: Clear to auscultation, No wheezing or rales. No increased work of breathing, no conversational dyspnea, no accessory muscle use, no nasal flaring. No respiratory distress noted Heart: Regular rate and rhythm, No murmurs, No rubs and No gallops, 2+ distal pulses (radial, femoral, posterior tibial) in all extremities Abdomen: Soft, there is no tenderness, rigidity, rebound or guarding, no obvious peritoneal signs, no palpable pulsatile abdominal masses, no auscultated abdominal bruit : No CVAT Extremities: No edema. Neuro: Normal gait. No ataxia. Skin: No rash or lesions noted. MEDICAL DECISION MAKING: Chief Complaint: Chest pain MDM Narrative: Patient was hemodynamically stable, afebrile and nontoxic-appearing. I considered the following differential diagnosis: ACS, arrhythmia, anemia, electrolyte abnormality, pneumonia, pneumothorax, GI etiology, PE ALL IMAGES (IF OBTAINED) HAVE BEEN PERSONALLY REVIEWED AND INTERPRETED BY MYSELF. I have personally reviewed the patient's chest x-ray. Chest x-ray is unremarkable for pulmonary edema, pneumothorax, pneumonia or focal cardiopulmonary abnormality. EKG with normal sinus rhythm, normal axis, no intervals, no STEMI I have personally reviewed the patient's chest x-ray. Chest x-ray is unremarkable for pulmonary edema, pneumothorax, pneumonia or focal cardiopulmonary abnormality. Prior to completion of workup and reassessment patient eloped from the emergency department. Total critical care time today provided was at least 0 minutes. This excludes separately billable procedures. Critical care time (if documented) is secondary to the patient having high probability of clinically significant/life threatening deterioration in the patient's condition which required my urgent intervention. Impression: 1. Chest pain 2. Eloped from emergency department Disposition: Eloped from the emergency department Roger Osman DO Radiography Diagnostic Testing: Clinical Impression(s) from Imaging Studies Chest X-Ray 06/22/23 10:14 IMPRESSION: Normal x-ray examination of the chest. Electronically Signed: Alec Herrera MD at 11:24 EDT Reading Location ID and State: [facility] / [place] , Service support , Discharge Plan Triage Chief Complaint: Chest Pain ED Provider: Roger Osman Dx/Rx/DC Orders Prescriptions: No Action PNV cmb#95-ferrous fumarate-FA [] 28 mg iron- 800 mcg tablet 1 tab PO DAILY Patient Comments: TAKE 1 TABLET BY MOUTH EVERY DAY ferrous sulfate [Feosol] 325 mg (65 mg iron) tablet 325 mg PO QODAY Primary Care Provider: Rachell Winn HAMPER MAKER MACHINE Referrals: Rachell Winn HAMPER MAKER MACHINE, HAMPER MAKER MACHINE-C [Primary Care Provider] - Disposition Disposition: Against Medical Advice Discharge Date/Time: 06/22/23 10:59
== END 2023-06-22 10:59 | disposition left against medical advice (07) ==
PROVIDERS: Emergency Provider Emergency Medicine; PCP Nurse Practitioner Family; Visit Provider Emergency Medicine
DX: R07.9 Chest pain, unspecified (principal); F17.290 Nicotine dependence, other tobacco product, uncomplicated; Z53.29 Procedure and treatment not carried out because of patient's decision for other reasons
CPT/HCPCS: 71045; 93005; 99282

== ENCOUNTER 2023-06-24 11:11 | Emergency (ER) | payer MEDICAID, SELFPAY ==
[2023-06-24 11:11] VITALS: BP 128/84; PULSE 91; RESP 16; TEMP 36.6; O2SAT 99; BMI 20.9
--- NOTE | 2023-06-24 12:06 | ED.VIS.FEGU ---
HPI HPI - Female History of Present Illness Chief Complaint: Vag Bleeding Detail of Chief Complaint: Vaginal bleeding 1 pad per hour since June 20 Informant: patient Pain Pain: Negative for Pelvic Pain, Vulvar Pain or Vaginal Pain Bleeding Issue: Positive for Vaginal bleeding; Negative for Passing clots or Passing tissue Onset: Days Context: Sudden Onset Timing: Continuous Current Severity: Heavy Current pads/hr: 1 Associated Symptoms Associated Symptoms: Positive for Hematuria; Negative for Dysuria, Frequency, Urgency or Missed Period Narrative Narrative: Patient is a 22-year-old female. She underwent laparoscopic cholecystectomy on June 16. She was diagnosed with pulmonary embolus in June 20. She is present on Eliquis. She reports heavy bleeding vaginally since starting Eliquis. She states she is going through 1 pad per hour. She does endorse shortness of breath going up steps first noted yesterday. She does endorse orthostatic lightheadedness. Prior similar symptoms: No Recent Illness/Hospitalization: Yes (HPI narrative) PFSH PFSH Medical History Pulmonary embolism Anxiety depression Depression Home Medications ?Medication ?Instructions ?Recorded ?Last Taken ?Type ferrous sulfate 325 mg (65 mg 325 mg PO QODAY 11/12/22 12/14/22 History iron) tablet (Feosol) vit no.95-ferrous 1 tab PO DAILY 11/12/22 12/14/22 History fumarate 28 mg-folic acid 800 mcg tablet () Allergy/AdvReac Type Severity Reaction Status Date / Time No Known Allergies Allergy Verified 06/24/23 11:13 Family History Father Drug abuse Surgical History Hx of cholecystectomy History of tonsillectomy and adenoidectomy Social History (Updated 06/24/23 @ 12:[address] Fabián Bob MD) household members: children Smoking Status: Current every day smoker tobacco type: e-cigarettes ROS ROS ED Constitutional Constitutional ED: Denies anorexia, body ache(s), change in weight, fever(s) or weight loss Eyes Eyes: Reports systems reviewed and no addt'l complaints, except as documented and none ENT ENT ED: Reports none Cardiovascular Cardiovascular: Reports other Details: Orthostatic symptoms otherwise negative Respiratory/Chest Respiratory/Chest: Reports as per HPI Gastrointestinal Gastrointestinal: Reports as per HPI Genitourinary Genitourinary ED: Reports as per HPI Musculoskeletal Musculoskeletal: Reports none Integumentary Reports none Neurologic Neurologic: Reports none Psychiatric Psychiatric: Reports none Endocrine Endocrinology: Reports none Hematologic/Lymphatic Hematologic/Lymphatic: Reports easy bleeding and easy bruising Allergic/Immunologic Allergic/Immunologic ED: Reports systems reviewed and no addt'l complaints, except as documented EXAM Physical Exam Const Vital Signs: 06/24/23 11:11 06/24/23 12:21 06/24/23 13:11 Temperature 98 F Temperature Source Temporal Pulse Rate 91 93 Pulse Rate [Lying] 75 Pulse Rate [Sitting (for 1 minute prior to obtaining)] 74 Pulse Rate [Standing (for 1 minute prior to obtaining)] 100 Respiratory Rate 16 18 Blood Pressure 128/84 H 119/78 Blood Pressure [Lying] 113/74 Blood Pressure [Sitting (for 1 minute prior to obtaining)] 121/89 H Blood Pressure [Standing (for 1 minute prior to obtaining)] 118/77 Blood Pressure Mean 98 91 Blood Pressure Mean [Lying] 87 Blood Pressure Mean [Sitting (for 1 minute prior to obtaining)] 99 Blood Pressure Mean [Standing (for 1 minute prior to obtaining)] 90 Pulse Ox 99 98 Oxygen Delivery Method Room Air Room Air Orthostatic vital signs are negative. Positive well nourished and well developed General Appearance ED: active, cooperative, comfortable, well kempt, well developed and NAD HEENT Reports normocephalic, head/scalp atraumatic, hearing grossly normal bilaterally and external ears normal normocephalic, normal to inspection and atraumatic Nose: external nose normal Mouth ED: Yes oral and palatal mucosa normal, Yes lips normal and Yes tongue normal Mouth: oral and palatal mucosa normal, lips normal and tongue normal Eyes PERRL, EOMs intact bilaterally, conjunctivae normal and no scleral icterus General Eye ED: Yes normal appearance of both eyes Neck full ROM, no lymphadenopathy, supple, no meningeal signs and no JVD Chest Wall inspection of chest normal, palpation of chest normal and inspection of breasts normal Resp normal respiratory effort, normal air movement, no retractions and no use of accessory muscles Cardio regular rate, regular rhythm, S1 normal heart sound, S2 normal heart sound and no murmurs Palpation: normal PMI GI normal to inspection, nondistended, normoactive bowel sounds, soft to palpation, non-tender, non-distended, no masses and no bruits; Negative for hepatosplenomegaly Narrative: And external genitalia is normal. Vaginal and cervical mucosa are normal. There is less than a cc of blood noted in the vaginal vault. There is no clots. Patient demonstrated no discomfort with cervical motion tenderness to palpation of the uterus. Size of the uterus is normal. There is no fullness in the right or left adnexa. There is no palpable mass. When nurse asked to rank her pain she states a 10. Back/Spine no CVA tenderness, normal ROM and normal to inspection Extremity normal to inspection, full ROM, normal capillary refill, no joint enlargement, no clubbing, cyanosis or edema, no calf tenderness and no pedal edema Neuro oriented x3, CN's II-XII intact bilaterally and moves all extremities Sensorium / Orientation: awake and alert Psych mental status grossly normal, thought process normal, cooperative, affect normal, speech normal and activity/motor behavior normal Skin no rashes or lesions noted, no wounds, skin turgor normal, no jaundice, no petechiae and no mottling MDM MDM MDM Narrative Medical decision making narrative: Suprenza test was obtained to rule out . Pelvic exam was ordered determine etiology of her bleeding. Because she endorses lightheadedness with standing orthostatic vitals were ordered. Lab Data Attestation: I reviewed the patient's lab results. Lab results narrative: Hemoglobin is 15.2. Last hemoglobin on record is 11.5 obtained December 15, 2022. Prior hemoglobin levels were lower. Labs: Laboratory Results - last 24 hr 06/24/23 12:02 WBC 5.1 RBC 5.40 Hgb 15.2 H Hct 46.3 MCV 85.7 MCH 28.1 MCHC 32.8 RDW Std Deviation 45.6 H RDW Coeff of Lorna 14.8 H Plt Count 244 MPV 12.7 H Immature Gran % (Auto) 0.400 Neut % (Auto) 62.4 Lymph % (Auto) 29.4 [place] % (Auto) 6.2 Eos % (Auto) 0.8 Baso % (Auto) 0.8 Absolute Neuts (auto) 3.2 Absolute Lymphs (auto) 1.51 Nucleated RBC % 0 Serum , Qual NEGATIVE Management Discussion w/another healthcare provider: Senior Water Resources Engineer (Patient is reporting passing large clots the size of Clement to use. Will contact Dr. Pierre's discussed case and if she recommends anything for the bleeding. Dr. Rodriguez was made aware of patient's history physical and findings and laboratory results. Plan is call office and she will be seen this wee) Discharge Plan Triage Chief Complaint: Vag Bleeding ED Provider: PaulinoFabián Dx/Rx/DC Orders Clinical Impression: Abnormal vaginal bleeding, Anticoagulant long-term use, Pulmonary embolus, Status post laparoscopic cholecystectomy Instructions: ED Dysfunctional Uterine Bleeding Prescriptions: No Action PNV cmb#95-ferrous fumarate-FA [] 28 mg iron- 800 mcg tablet 1 tab PO DAILY Patient Comments: TAKE 1 TABLET BY MOUTH EVERY DAY ferrous sulfate [Feosol] 325 mg (65 mg iron) tablet 325 mg PO QODAY Primary Care Provider: Rachell Winn NP Referrals: Prabhu Pierre MD [Med Staff - Active Staff] - As soon as possible Rachell Winn NP, SCHO[employer] OFFICER-[employer] [Primary Care Provider] - Activity Restrictions/Additional Instructions: Call Dr. Pierre's office this afternoon and they will schedule for an appointment later this week. Print Language: Chinese Disposition Disposition: Home, Self Care
[2023-06-24 12:21] VITALS: BP 113/74; BP 118/77; BP 121/89; PULSE 100; PULSE 74; PULSE 75
[2023-06-24 13:09] LABS: Absolute Lymphocyte Count 1.51 X10^3/uL (0.83-4.51); Absolute Neutrophil Count 3.2 X10^3/uL (2.0-7.7); Basophil# 0.04 X10^3/uL; Basophil% 0.8 % (0-1); Eosinophil# 0.04 X10^3/uL; Eosinophils% 0.8 % (0-5); Hematocrit 46.3 % (37-47); Hemoglobin 15.2 g/dL (12.0-15.0); Lymphocyte # 1.51 X10^3/ul (0.83-4.51); Lymphocyte % 29.4 % (19-41); Mean Corp Hgb Conc 32.8 g/dL (32-36); Mean Corpuscular Hgb 28.1 pg (27.0-32.0); Mean Corpuscular Volume 85.7 fL (81-99); Mean Platelet Vol. 12.7 fl (6.2-12.0); Monocyte# 0.32 X10^3/uL; Monocyte% 6.2 % (0-10); NRBC Flagged by Analyzer 0 % (0-5); Neutrophil # 3.21 X10^3/uL (2.7-7.7); Neutrophil % 62.4 % (47-70); Platelet Count 244 K/mm3 (150-450); RBC Distribution Width CV 14.8 % (11.6-14.6); RBC Distribution Width SD 45.6 fl (35.1-43.9); White Blood Count 5.1 K/mm3 (4.4-11.0)
[2023-06-24 13:11] VITALS: BP 119/78; PULSE 93; RESP 18; O2SAT 98
[2023-06-24 13:15] LABS: Internal QC Validated? YES +Cl - CLEAR BKGD; Pregnancy, Serum, hCG Quali. NEGATIVE Negative
== END 2023-06-24 14:46 | disposition home or self-care (01) ==
PROVIDERS: Emergency Provider Emergency Medicine; PCP Nurse Practitioner Family; Visit Provider Emergency Medicine
DX: N93.9 Abnormal uterine and vaginal bleeding, unspecified (principal); I26.99 Other pulmonary embolism without acute cor pulmonale; Z79.01 Long term (current) use of anticoagulants; Z90.49 Acquired absence of other specified parts of digestive tract; R06.09 Other forms of dyspnea; R42 Dizziness and giddiness; F17.290 Nicotine dependence, other tobacco product, uncomplicated
CPT/HCPCS: 84703; 85025; 86850; 86900; 86901; 99284; A4216

== ENCOUNTER 2024-08-03 13:17 | Outpatient (CLI) | payer MEDICAID, SELFPAY ==
[2024-08-03] VITALS (11 sets, daily range): BP systolic 109–124; BP diastolic 57–70; PULSE 85–106; RESP 14; TEMP 36.7; O2SAT 100; BMI 31.3
[2024-08-03 14:22] LABS: Hematocrit 28.5 % (37-47); Hemoglobin 8.9 g/dL (12.0-15.0); Mean Corp Hgb Conc 31.2 g/dL (32-36); Mean Corpuscular Volume 83.3 fL (81-99); Mean Platelet Vol. 12.4 fl (6.2-12.0); Platelet Count 124 K/mm3 (150-450); RBC Distribution Width CV 13.9 % (11.6-14.6); Red Blood Count 3.42 M/mm3 (4.2-5.4); White Blood Count 7.1 K/mm3 (4.4-11.0)
[2024-08-03 14:53] LABS: ROM Internal Control Test YES-OK TO RESULT pt. (Internal QC); ROM Patient Test Negative (Negative); Record Kit Lot#, ROM+ K3358
[2024-08-03 14:59] LABS: AST(SGOT) 22 U/L (<=31); Alanine Aminotransfer ALT/SGPT 12 U/L (<=34); Creatinine, Serum 0.61 mg/dL (0.70-1.20); EST Glomerular Filtration Rate 130 (>60); Estimated Creatinine Clearance 146.29 ml/min (50-250)
[2024-08-03 15:07] LABS: Protein, Urine (Random) 12.5 mg/dL (0.0-12.0); Protein:Creat Ratio 191 mg/g CRE (0-200)
[2024-08-03 16:17] LABS: Uric Acid 4.1 mg/dL (2.6-6.0)
--- NOTE | 2024-08-03 21:07 | OB.TRI.NOTE ---
HPI - General General Date of Service: 08/03/24 HPI Narrative KEAGAN ALICIA, is a 23 F who presents with intermittent headaches. Maternal Data Information LUZ Calculator Estimated Delivery Date Method Current WG Current Estimate 10/13/24 [facility] History (Updated 08/03/24 @ 21:[address] Prabhu Pierre MD) Pulmonary embolism Anxiety depression Depression Home Medications ?Medication ?Instructions ?Recorded ?Last Taken ?Type ferrous sulfate 325 mg (65 mg 325 mg PO QODAY 11/12/22 12/14/22 History iron) tablet (Feosol) vit no.95-ferrous 1 tab PO DAILY 11/12/22 12/14/22 History fumarate 28 mg-folic acid 800 mcg tablet () Allergy/AdvReac Type Severity Reaction Status Date / Time No Known Allergies Allergy Verified 06/24/23 11:13 Family History Father Drug abuse Surgical History (Updated 07/02/23 @ 00:03 by Cricket Villarreal) Hx of cholecystectomy History of tonsillectomy and adenoidectomy Social History (Updated 06/24/23 @ 12:[address] Fabián Bob MD) household members: children Smoking Status: Current every day smoker tobacco type: e-cigarettes History Elective abortions Hx Para 1 Spontaneous abortions Hx # Term Pregnancies Ectopic pregnancies Hx # Pregnancies Multiple births # of living children NST FHR Rate Baby A Baseline: 135 Variability:: Moderate Accelerations:: 15 x 15 Decelerations:: None NST Reactive:: Yes Uterine Activity:: quiet Assessment & Plan (1) Headache in : QUALIFIERS: Trimester: third trimester Qualified Code(s): O26.893 - Other specified related conditions, third trimester; R51.9 - Headache, unspecified PLAN: Plan BP's & preE labs normal. FOllow up in office for platelets of 124 and anemia. Reactive NST.
== END 2024-08-03 16:00 | disposition home or self-care (01) ==
LOC: WPOUT 13:20 → WP 13:20
PROVIDERS: PCP Nurse Practitioner Family; Referring Provider Obstetrics & Gynecology; Visit Provider Obstetrics & Gynecology
DX: O99.891 Other specified diseases and conditions complicating pregnancy (principal); R51.9 Headache, unspecified; O99.333 Smoking (tobacco) complicating pregnancy, third trimester; F17.290 Nicotine dependence, other tobacco product, uncomplicated; O99.013 Anemia complicating pregnancy, third trimester; Z86.711 Personal history of pulmonary embolism; Z3A.29 29 weeks gestation of pregnancy
CPT/HCPCS: 59025; 59050; 82565; 82570; 84112; 84156; 84450; 84460; 84550; 85027; 99221; G0378

== ENCOUNTER 2024-09-07 22:50 | Outpatient (CLI) | payer MEDICAID, SELFPAY ==
[2024-09-07] VITALS (9 sets, daily range): BP systolic 120; BP diastolic 67; PULSE 90–101; RESP 16; TEMP 36.6; O2SAT 96–97
--- OUTSIDE RECORDS SUMMARY | 2024-09-07 23:17 | XMS RPT_ITS | CCD ---
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 [employer] Name Role Phone Ruben, Jessica Patty Unavailable Unavailable Ruben, Jessica Patty Unavailable Unavailable NOEL, KRISTEL J Unavailable Unavailable NOEL, KRISTEL J Unavailable Unavailable NOEL, KRISTEL J Unavailable Unavailable NOEL, KRISTEL J Unavailable Unavailable NOEL, KRISTEL J Unavailable Unavailable NOEL, KRISTEL J Unavailable Unavailable NOEL, KRISTEL J Unavailable Unavailable NOEL, KRISTEL J Unavailable Unavailable NOEL, KRISTEL J Unavailable Unavailable NOEL, KRISTEL J Unavailable Unavailable ORI COBURN Unavailable Unavailable NOEL, KRISTEL J Unavailable Unavailable NOEL, KRITSEL J Unavailable Unavailable NOEL, KRISTEL J Unavailable Unavailable NOEL, KRISTEL J Unavailable Unavailable NOEL, KRISTEL J Unavailable Unavailable NOEL, KRISTEL J Unavailable Unavailable NOEL, KRISTEL J Unavailable Unavailable NOEL, KRISTEL J Unavailable Unavailable NOEL, KRISTEL J Unavailable Unavailable NOEL, KRISTEL J Unavailable Unavailable NOEL, KRISTEL J Unavailable Unavailable NOEL, KRISTEL J Unavailable Unavailable NOEL, KRISTEL J Unavailable Unavailable NOEL, KRISTEL J Unavailable Unavailable NOEL, KRISTEL J Unavailable Unavailable NOEL, KRISTEL J Unavailable Unavailable NOEL, KRISTEL J Unavailable Unavailable NOEL, KRISTEL J Unavailable Unavailable MEGAN AUGUST Unavailable Unavailable DUANE WITT Unavailable Unavailable NOEL, KRISTEL J Unavailable Unavailable NOEL, KRISTEL J Unavailable Unavailable NOEL, KRISTEL J Unavailable Unavailable NOEL, KRISTEL J Unavailable Unavailable NOEL, KRISTEL J Unavailable Unavailable NOEL, KRISTEL J Unavailable Unavailable NOEL, KRISTEL J Unavailable Unavailable NOEL, KRISTEL J Unavailable Unavailable NOEL, KRISTEL J Unavailable Unavailable NOEL, KRISTEL J Unavailable Unavailable NOEL, KRISTEL J Unavailable Unavailable NOEL, KRISTEL J Unavailable Unavailable NOEL, KRISTEL J Unavailable Unavailable NOEL, KRISTEL J Unavailable Unavailable NOEL, KRISTEL J Unavailable Unavailable Required, No Pcp Unavailable Unavailable Tatyana Michaels Unavailable Unavailable Unavailable Primary Care Provider Unavailabl e Unavailable Primary Care Provider [facility] Fabiana Watts Primary Care Pro vider Dr. Jimmy Sepulveda Attending Provider [phone] ZIA JOHNSON Referring Provider Mauricio Reyes Unavailable Unavailable Mauricio Reyes Attending Unavailable Neelima Dahl MD Primary Care Provider [phone] Unavailable Primary Care [facility] Jacob Mackenzie DO Primary Care Provider [phone] Queden CHILD CAREGIVER PRIVATE HOME-DOCTOR ASSISTANT, Rachell Yoana Primary Care Provid er Queden CHILD CAREGIVER PRIVATE HOME.DOCTOR ASSISTANT, Rachell A Primary Care Provider Saturnino Velázquez DO Unavailable [phone] Miki Jaramillo MD Unavailable DIPTI FREED Attending Unavailable QUEDEN, RACHELL A Primary Care Unavailable DIPTI FREED Attending Unavailable JACOB MACKENZIE Primary Care Unavailable DIPTI FREED Attending Unavailable GINO VALERO Referring Unavailable NEELIMA DAHL Primary Care Unavailable QUEDEN, RACHELL A Primary Care Unavailable MALIA GUTIERREZ Attending Unavailable QUEDEN, RACHELL A Primary Care Unavailable MARY JO CHANCE Admitting Unavail able MARY JO CHANCE Attending Unavail able QUEDEN, RACHELL YOANA Primary Care Unavailable Ramiro Hugo MD Unavailable RAMIRO HUGO Admitting Unavailable RAMIRO HUGO Attending Unavailable QUEDEN, RACHELL YOANA Primary Care Unavailable RAMIRO HUGO Attending Unavailable QUEDEN, RACHELL YOANA Primary Care Unavailable RAMIRO HUGO Referring Unavailable SIPPEY, ALLA Admitting Unavailable CRISTOY, ALLA Attending Unavailable SATURNINO VELÁZQUEZ Attending Unavailable QUEDEN, RACHELL YOANA Primary Care Unavailable QUEDEN, RACHELL YOANA Primary Care Unavailable EL LIZA BORA Admitting Unavailable EL LIZANICORE Attending Unavailable SIPPEY, ALLA Consulting Unavailable QUEDEN, RACHELL YOANA Primary Care Unavailable SATURNINO VELÁZQUEZ Attending Unavailable SATURNINO VELÁZQUEZ Referring Unavailable QUEDEN, RACHELL YOANA Primary Care Unavailable QUEDEN, RACHELL YOANA Primary Care Unavailable MIKI JARAMILLO Attending Unavailable KEATON VELÁZQUEZN Gordy Referring Unavailable QUEDEN, RACHELL YOANA Primary Care Unavailable FERNANDES NORIEGA, YULANKA S Referring Unav ailable QUEDEN, RACHELL YOANA Primary Care Unavailable FERNANDES NORIEGA, YULANKA S Referring Unav ailable QUEDEN, RACHELL YOANA Primary Care Unavailable QUEDEN, RACHELL YOANA Primary Care Unavailable Saturnino Velázquez DO Unavailable Miki Jaramillo MD Unavailable Ramiro Hugo MD Unavailable Queden PROFESSOR OF ENVIRONMENTAL SCIENCE-C, Rachell Primary Care Provider Neelima MAN, Dr. Pelletier Attending Provider [phone] Dr. Prabhu Ortez MD Referring Provider RAMIRO HUGO Attending Unavailable QUEDEN, RACHELL YOANA Primary Care Unavailable FERNANDES NORIEGA, YULANKA S Referring Unav ailable FERNANDES NORIEGA, YULANKA S Attending Unav ailable QUEDEN, RACHELL YOANA Primary Care Unavailable FERNANDES NORIEGA, YULANKA S Attending Unav ailable QUEDEN, RACHELL YOANA Primary Care Unavailable RAMIRO HUGO Attending Unavailable QUEDEN, RACHELL YOANA Primary Care Unavailable Yamila Ballard Attending Unavailable Yamila Ballard Admitting Unavailable Queden PROFESSOR OF ENVIRONMENTAL SCIENCE, Rachell Primary Care Unavailable Prabhu Ortez Attending Unavailable Queden PROFESSOR OF ENVIRONMENTAL SCIENCE, Rachell Primary Care Unavailable Prabhu Ortez Referring Unavailable SUSSY, JAQUELIN Referring Unavailable QUEDEN, RACHELL A Primary Care Unavailable HI, JAQUELIN Referring Unavailable QUEDEN, RACHELL A Primary Care Unavailable HI, JAQUELIN Attending Unavailable QUEDEN, RACHELL A Primary Care Unavailable QUEDEN, RACHELL A Primary Care Unavailable YAMILA BALLARD Attending Unavailable BARBI TIAN Attending Unavailable QUEDEN, RACHELL A Primary Care Unavailable MARY JO CHANCE Attending Unavail able QUEDEN, RACHELL A Primary Care Unavailable QUEDEN, RACHELL A Primary Care Unavailable JOYCE MISHRA Referring Unavailable QUEDEN, RACHELL A Primary Care Unavailable HI, JAQUELIN Referring Unavailable IH, JAQUELIN Attending Unavailable QUEDEN, RACHELL A Primary Care Unavailable HI, JAQUELIN Attending Unavailable QUEDEN, RACHELL A Primary Care Unavailable HI, AJQUELIN Attending Unavailable QUEDEN, RACHELL A Primary Care Unavailable HI, JAQUELIN Referring Unavailable NEYHART BARNETT, MARY JO Referring Unavail able QUEDEN, RACHELL A Primary Care Unavailable QUEDEN, RACHELL A Primary Care Unavailable HI, JAQUELIN Attending Unavailable KADEEM, FAIZA Attending Unavailable QUEDEN, RACHELL A Primary Care Unavailable ANASTASIACONOR MONIQUE P Referring Unavailable HI, JAQUELIN Attending Unavailable QUEDEN, RACHELL A Primary Care Unavailable KELSEYSANDRA PARK Attending Unavailable QUEDEN, RACHELL A Primary Care Unavailable PRABHU ORTEZ Attending Unavailable QUEDEN, RACHELL A Primary Care Unavailable NEYHART BARNETT, MARY JO Referring Unavail able QUEDEN, RACHELL A Primary Care Unavailable ANASTASIACONOR P Attending Unavailable QUEDEN, RACHELL A Primary Care Unavailable NEYHART BARNETT, MARY JO Attending Unavail able HABARBI PAUL Referring Unavailable QUEDEN, RACHELL A Primary Care Unavailable QUEDEN, RACHELL A Primary Care Unavailable PRABHU ORTEZ Attending Unavailable QUEDEN, RACHELL A Primary Care Unavailable QUEDEN, RACHELL A Primary Care Unavailable TORCHIA, NAYELY Attending Unavailable QUEDEN, RACHELL A Attending Unavailable QUEDEN, RACHELL A Primary Care Unavailable NEELIMA, KARMON Referring Unavailable QUEDEN, RACHELL A Primary Care Unavailable QUEDEN, RACHELL A Primary Care Unavailable JENNI JAQUELIN Attending Unavaila ble TORCHIA, NAYELY Referring Unavailable QUEDEN, RACHELL A Primary Care Unavailable TORCHIA, NAYELY Referring Unavailable QUEDEN, RACHELL A Primary Care Unavailable TORCHIA, NAYELY Referring Unavailable QUEDEN, RACHELL A Primary Care Unavailable TORCHIA, NAYELY Referring Unavailable QUEDEN, RACHELL A Primary Care Unavailable Allergies Allergy Classification Reported Allergen(s) Allergy Type Date of Onset Reaction(s) Facility Latex (3 sources) Latex Substance Allergy 07-02-2023 [facility] (20 sources) Latex; 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: [LATEX] Drug Allergy 07-02-2023 [facility] Medications Current Medications Medication Drug Class(es) Dates Sig (Normalized) Sig (Original) acetaminophen 300 mg / codeine phosphate 30 mg oral tablet (6 sources) Opioid Agonist Start: 09-16-2023 End: 09-19-2023 take 1-2 tablets by mouth every four hours as needed acetaminophen-cod eine (TYLENOL-COD #3) 300-30 mg per tablet Indications: Post-op pain Take 1-2 tablets by mouth every 4 hours as needed for up to 3 days. 5 tablet 0 09/16/2023 09/19/2023 Active Start: 11-05-2021 acetaminophen- codeine (TYLENOL-COD #3) 300-30 mg per tablet Take 1 tablet by mouth. 0 11/05/2021 Active Comment on above: Take 1 tablet by [facility]. albuterol 0.83 mg/ml inhalation solution (1 source) beta2-Adrenergic Agonist Start: 10-03-19 24 2.5 mg, nebulization, Once as needed, wheezing, Starting on Fri10/03/23 at 1143, For 1 dose, Recovery (only) aspirin 81 mg delayed release oral tablet (20 sources) Platelet Aggregation Inhibitor, Nonsteroidal Anti-inflammatory Drug Start: 03-09-19 take 1 tablet by mouth once daily aspirin, enteric coated (ECOTRIN LOW STRENGTH) 81 mg EC tablet Indications: with uncertain dates, antepartum (HCC) Take 1 tablet by mouth once daily. 90 tablet 3 03/09/2024 Active calcium chloride 0.0014 meq/ml / potassium chloride 0.004 meq/ml / sodium chloride 0.103 meq/ml / sodium lactate 0.028 meq/ml injectable solution (3 sources) Start: 10-03-19 take 100 mL intravenously every hour 100 mL/hr, intravenous, Continuous, Starting on Fri10/03/23 at 1200, Recovery (only) Start: 06-17-2023 take 100 mL intraven ously every hour 100 mL/hr, intravenous, Continuous, Starting on Fri06/17/23 at 1030, Recovery (only) cephalexin 500 mg oral capsule (3 sources) Cephalosporin Antibacterial Start: 02-18-2024 End: 02-25-2024 take 1 capsule by mouth three times daily cephalexin (Keflex) 500 mg capsule Indications: Urinary tract infection in mother during first trimester of ([facility]) Take 1 capsule (500 mg) by mouth 3 times a day for 7 days. 21 capsule 02/18/2024 02/25/2024 Active Start: 02-18-2024 End: 02-18-2024 take 500 mg by mouth once 500 mg, oral, Once, On Fri at 1315, For 1 dose, Suspected Indication (Select all that apply): Urinary Tract Infection, Type of Therapy: Definitive, No Cultures, Type of Urinary Tract Infection: Complicated, Indications: Urinary Tract Infection Start: 10-03-2023 End: 10-08-2023 take 1 capsule by mouth twice daily cephalexin (Keflex) 500 mg capsule Indications: SVT (supraventricular tachycardia) ([facility]) , Palpitations Take 1 capsule (500 mg) by mouth 2 times a day for 5 days. 10 capsule 10/03/2023 10/08/2023 Active cholestyramine resin 4000 mg powder for oral suspension (2 sources) Bile Acid Sequestrant Start: 09-29-2023 End: 10-16-2023 take 1 dose by mouth three times daily at mealtime cholestyramine (QUESTRAN) 4 gram packet Take 1 Packet by mouth three times a day with meals. 90 Packet 1 09/29/2023 10/16/2023 Discontinued 200 ml ciprofloxacin 2 mg/ml injection (1 source) Quinolone Antimicrobial Start: 06-20-2023 take 400 mg intravenously every twelve hours 400 mg, intravenous, at 200 mL/hr, Administer over 60 Minutes, Every 12 hours, First dose on Fri06/20/23 at 0330, premix bag, Dosing of this medication varies based on severity of illness. Does this patient have sepsis or concern for sepsis (probable or documented infection plus systemic manifestations of infection)? No, Suspected Indication (Select all that apply): Abdominal Infection, Type of Therapy: Empiric, Type of infection: Community-Acquired diphenhydrAMINE (1 source) Histamine-1 Receptor Antagonist Start: 10-03-2023 25 mg, intravenous, Once as needed, itching, allergic reaction, Starting on Fri10/03/23 at 1143, For 1 dose, Recovery (only) ferrous sulfate 325 mg oral tablet (17 sources) Start: 11-12-2022 take 1 tablet by mouth every other day Ferrous Sulfate (Feosol) 325 mg (65 mg iron) tablet Active 325 mg PO EVERY OTHER DAY November 12, 2022 12:00am Start: 06-03-2017 ferrous sulfat e 325 mg (65 mg iron) tablet Take 325 mg by mouth. 0 06/03/2017 Active End: 06-03-2023 ferrous sulfate (IRON ORAL) Take by mouth. 0 06/03/2023 Discontinued (Course of therapy completed) ferrous sulfate (IRON ORAL) Take by mouth. 0 Active Comment on above: Take 325 mg by mouth . Take by mouth. fluconazole 150 mg oral tablet (6 sources) Azole Antifungal Start: End: take 1 tablet by mouth once fluconazole (DIFLUCAN) 150 mg tablet Take 1 tablet by mouth one time only for 1 dose. 1 tablet 0 09/12/2023 09/12/2023 Active Start: 08-19-2023 End: 08-19-2023 take 1 tablet by mouth once fluconazole (DIFLUCAN) 150 mg tablet Take 1 tablet by mouth one time only for 1 dose. 1 tablet 0 08/19/2023 08/19/2023 Active Start: 07-28-2019 End: 11-12-2021 fluconazole (DIFLUCAN) 150 m g tablet folic acid 1 mg oral tablet (20 sources) Start: 03-09-2024 take 1 tablet by mouth once daily folic acid 1 mg tablet Take 1 tablet by mouth once daily. 30 tablet 1 03/09/2024 Active 1 ml hydrALAZINE hydrochloride 20 mg/ml injection (1 source) Arteriolar Vasodilator Start: 10-03-2023 10 mg, intravenous, Administer over 2 Minutes, Every 30 min PRN, systolic blood pressure greater than 180 mmHg and heart rate less than 60 BPM, Starting on Fri10/03/23 at 1143, For 2 doses, Recovery (only) 1 ml HYDROmorphone hydrochloride 1 mg/ml cartridge (2 sources) Opioid Agonist Start: 10-03-2023 1 mg, intravenous, Every 5 min PRN, pain severe (7-10), first line, Starting on Fri10/03/23 at 1143, Recovery (only), Max total of 4 mg regardless of dose. Start: 06-18-2023 End: 06-18-2023 0.5 mg, intravenous, Once, O n 06/18/23 at 1805, For 1 dose labetalol hydrochloride 5 mg/ml injectable solution (2 sources) beta-Adrenergic Yanira Start: 10-03-2023 10 mg, intravenous, Administer over 1 Minutes, Once as needed, systolic blood pressure greater than 180 mmHg, dystolic blood pressure greater than 100 mmHg and heart rate greater than 60 BPM, Starting on Fri10/03/23 at 1143, For 1 dose, Recovery (only) Start: 06-17-2023 5 mg, intraven ous, Administer over 1 Minutes, Once as needed, systolic blood pressure greater than 180 mmHg, dystolic blood pressure greater than 100 mmHg and heart rate greater than 60 BPM, Starting on Fri06/17/23 at 1013, For 1 dose, Recovery (only) 1 ml meperidine hydrochloride 25 mg/ml cartridge (1 source) Opioid Agonist Start: 10-03-2023 12.5 mg, intravenous, Every 10 min PRN, shivering, Starting on Fri10/03/23 at 1143, Recovery (only) metoprolol tartrate 25 mg oral tablet (20 sources) beta-Adrenergic Yanira Start: 07-19-2024 End: 07-19-2025 take 1 tablet by mouth twice daily metoprolol tartrate, short acting, (LOPRESSOR) 25 mg tablet Take 25 mg by mouth two times a day. 07/19/2024 07/19/2025 Active Start: 12-26-2023 End: 03-09-2024 take 0.5 tablet by mouth twice daily metoprolol tartrate, short acting, (LOPRESSOR) 25 mg tablet Indications: Paroxysmal SVT (supraventricular tachycardia) (HCC) , Palpitations Take 0.5 tablets by mouth two times a day. 12/26/2023 03/09/2024 Discontinued (Course of therapy completed) Start: 10-03-2023 End: 10-02-2024 take 0.5 tablet by mouth once daily metoprolol tartrate (Lopressor) 25 mg tablet Indications: SVT (supraventricular tachycardia) (CMS-HCC) , Palpitations Take 0.5 tablets (12.5 mg) by mouth once daily. 15 tablet 10/03/2023 01/27/2024 Discontinued (Med List Cleanup) Start: 08-19-2023 End: 10-03-2023 take 1 tablet by mouth every twelve hours metoprolol tartrate (Lopressor) 25 mg tablet Take 1 tablet (25 mg) by mouth every 12 hours. 08/19/2023 10/03/2023 Discontinued Start: 07-31-2023 End: 12-26-2023 take 1 tablet by mouth twice daily as needed metoprolol tartrate, short acting, (LOPRESSOR) 25 mg tablet Indications: Paroxysmal SVT (supraventricular tachycardia) (HCC) , Palpitations take 1 tablet by mouth twice a day as needed 180 tablet 1 08/19/2023 12/26/2023 Discontinued (Adjust Sig - Block E-Cancel) 100 ml metroNIDAZOLE 5 mg/ml injection (2 sources) Nitroimidazole Antimicrobial Start: 06-20-2023 take 500 mg intravenously every eight hours 500 mg, intravenous, Administer over 60 Minutes, Every 8 hours, First dose on Fri06/20/23 at 0330, Do NOT give with alcohol or drug products with significant alcohol content., Suspected Indication (Select all that apply): Abdominal Infection, Type of Therapy: Empiric, Type of infection: Community-Acquired Start: 03-21-2021 End: 03-21-2021 take 4 tablets by mouth once metroNIDAZOLE 500 mg oral tablet ; 4 tab(s) orally once Quantity: 4 Refills: 0 Ordered: 21-Mar-2021 Tatyana Michaels Start: 21-Mar-2021 End: 21-Mar-2021 Generic Substitution Allowed Comments: Do not drink alcoholic beverages when taking this medication.Finish all this medication unless otherwise directed by prescriber.May discolor urine or feces. Comment on above: Do not drink alcohol ic beverages when taking this medication.Finish all this medication unless otherwise directed by prescriber.May discolor urine or feces. 5 ml midazolam 1 mg/ml injection (2 sources) Benzodiazepine Start: 10-03-2023 1 mg, intravenous, Once as needed, anxiety, Starting on Fri10/03/23 at 1143, For 1 dose, Recovery (only) Start: 06-17-2023 End: 06-17-2023 1 mg, intravenous, Once, On Fri06/17/23 at 0900, For 1 dose, Preprocedure 1 ml morphine sulfate 2 mg/ml prefilled syringe (9 sources) Opioid Agonist Start: 10-03-2023 2 mg, intraven ous, Every 5 min PRN, pain moderate (4-6), first line, Starting on Fri10/03/23 at 1143, Recovery (only), Max total of 20 mg regardless of dose. Start: 06-24-2023 End: 06-24-2023 2 mg, intravenous, Once, On Fri06/24/23 at 2050, For 1 dose Start: 06-20-2023 2 mg, intraven ous, Every 3 hours PRN, pain severe (7-10), first line, pain moderate (4-6), second line, Starting on Fri06/20/23 at 0306 Start: 06-19-2023 End: 06-19-2023 Starting on Fri06/19/23 at 20 41, For 1 dose, Created by cabinet override Start: 06-18-2023 End: 06-19-2023 4 mg, intravenous, Once, On Fri06/19/23 at 2030, For 1 dose Start: 06-17-2023 4 mg, intraven ous, Every 5 min PRN, pain severe (7-10), first line, Starting on Fri06/17/23 at 1013, Recovery (only), Max total of 20 mg regardless of dose. Start: 06-17-2023 2 mg, intraven ous, Every 5 min PRN, pain moderate (4-6), first line, Starting on Fri06/17/23 at 1013, Recovery (only), Max total of 20 mg regardless of dose. naproxen 500 mg oral tablet (6 sources) Nonsteroidal Anti-inflammatory Drug Start: 06-18-2023 End: 06-25-2023 take 1 tablet by mouth twice daily at mealtime naproxen (Naprosyn) 500 mg tablet Indications: Postoperative pain Take 1 tablet (500 mg) by mouth 2 times a day with meals for 7 days. 14 tablet 06/18/2023 06/25/2023 Active norethindrone acetate 5 mg oral tablet (20 sources) Start: 08-18-2023 End: 12-26-2023 take 1 tablet by mouth once daily norethindrone (Aygestin) 5 mg tablet Take 1 tablet (5 mg) by mouth once daily. 08/18/2023 Active omeprazole 20 mg delayed release oral tablet (14 sources) Proton Pump Inhibitor Start: 07-27-2024 take 1 tablet by mouth every twelve hours as needed Omeprazole Magnesium (PRILOSEC OTC) 20 mg tablet Take 1 tablet by mouth two times a day as needed (heartburn). 60 tablet 3 07/27/2024 Active Start: 05-01-2017 omeprazole (DC ILOSEC) 40 mg capsule Take 40 mg by mouth. 0 05/01/2017 Active Comment on above: Take 40 mg by mouth. ondansetron 4 mg disintegrating oral tablet (20 sources) Serotonin-3 Receptor Antagonist Start: 02-17-19 End: 02-20-19 take 1 tablet by mouth every eight hours for nausea ondansetron ODT (Zofran-ODT) 4 mg disintegrating tablet Indications: Urinary tract infection in mother during first trimester of ([facility]) Dissolve 1 tablet (4 mg) in the mouth every 8 hours if needed for nausea or vomiting for up to 3 days. 9 tablet 02/18/2024 02/21/2024 Active Start: 02-18-2024 End: 02-18-2024 4 mg, intravenous, Once, On Fri02/18/24 at 1115, For 1 dose, When administering via IV Push, administer over 3-5 minutes. Start: 10-03-2023 4 mg, intraven ous, Once as needed, nausea/vomiting, first line, Starting on Fri10/03/23 at 1143, For 1 dose, Recovery (only), When administering via IV Push, administer over 3-5 minutes. Start: 07-02-2023 take 1 tablet by violette th every six hours as needed for nausea ondansetron (ZOFRAN) 4 mg tablet Indications: Nausea and vomiting, unspecified vomiting type Take 1 tablet by mouth every 6 hours as needed for nausea/vomiting. 120 tablet 1 07/02/2023 Active Start: 06-24-2023 End: 06-24-2023 4 mg, intravenous, Once, On Fri06/24/23 at 2050, For 1 dose, When administering via IV Push, administer over 3-5 minutes. Start: 06-22-2023 End: 06-29-2023 take 1 tablet by mouth every six hours as needed ondansetron orally disintegrating (ZOFRAN ODT) 4 mg disintegrating tablet Take 1 tablet by mouth every 6 hours as needed for nausea/vomiting for up to 7 days. 20 tablet 0 06/22/2023 06/29/2023 Active Start: 06-19-2023 End: 06-19-2023 Starting on Kimmy 06/19/23 at 19 38, For 1 dose, Created by cabinet override When administering via IV Push, administer over 3-5 minutes. Start: 06-18-2023 End: 06-19-2023 4 mg, intravenous, Once, On Kimmy 06/19/23 at 1700, For 1 dose, When administering via IV Push, administer over 3-5 minutes. Start: 06-17-2023 End: 06-17-2023 4 mg, intravenous, Once as n eeded, nausea/vomiting, first line, Starting on Fri06/17/23 at 1013, For 1 dose, Recovery (only), When administering via IV Push, administer over 3-5 minutes. Start: 07-19-2019 take 1 tablet by violette th every eight hours as needed ondansetron (ZOFRAN) 4 mg tablet Take 1 tablet by mouth every 8 hours as needed for Nausea/Vomiting. 10 tablet 0 07/19/2019 Active Comment on above: Take 1 tablet by violette th every 8 hours as needed for Nausea/Vomiting. Source=[facility]Loop, Medication=ONDANSETRON HCL 4 MG TABLET, Duration=8, Date Last Modified/Filled=06-Jul-2022 ondansetron ODT (Zofran-ODT) disintegrating tablet 4 mg (1 source) Start: take 1 tablet by mouth every eight hours as needed ondansetron ODT (Zofran-ODT) disintegrating tablet 4 mg oseltamivir 75 mg oral capsule (1 source) Neuraminidase Inhibitor Start: End: take 1 capsule by mouth twice daily oseltamivir (TAMIFLU) 75 mg capsule Take 1 capsule by mouth two times a day for 5 days. 10 capsule 03/10/2024 03/15/2024 Active oxyCODONE hydrochloride 5 mg oral tablet (1 source) Opioid Agonist Start: take 1 tablet by mouth every four hours as needed 5 mg, oral, Every 4 hours PRN, pain mild (1-3), first line, Starting on Fri06/17/23 at 1013, Recovery (only), When able to take oral medications., If ordered PRN for pain, nurse is permitted to administer this medication for higher pain scores based on patient preference? Yes Pnv Cmb#95-Ferrous Fumarate-Fa [ Vit No.95-Ferrous Fumarate 28 Mg-Folic Acid 800 Mcg Tablet] ( Vit No.95-Ferrous Fumarate 28 Mg-Folic ) 28 mg iron- 800 mcg tablet (2 sources) Start: 023 Pnv Cmb#95-Ferrous Fumarate-Fa [ Vit No.95-Ferrous Fumarate 28 Mg-Folic Acid 800 Mcg Tablet] ( Vit No.95-Ferrous Fumarate 28 Mg-Folic ) 28 mg iron- 800 mcg tablet Active 1 {tbl} PO DAILY November 12, 2022 12:00am Start: 11-12-2022 take 1 tablet by violette th once daily Pnv Cmb#95-Ferrous Fumarate-Fa [ Vit No.95-Ferrous Fumarate 28 Mg-Folic Acid 800 Mcg Tablet] ( Vit No.95-Ferrous Fumarate 28 Mg-Folic ) 28 mg iron- 800 mcg tablet Active 1 TABLET PO DAILY November 12, 2022 12:00am microencapsulated potassium chloride 20 meq extended release oral tablet (1 source) Start: 06-18-2023 20 mEq, oral, Daily, First dose on Fri06/18/23 at 1755, Best given with food and plenty of water to minimize gastric irritation. Do not crush or chew. [id number] 6-DHA ORAL (1 source) [id number] 6-DHA ORAL Take by mouth. Active VITAMINS TABLET (1 source) VITAMIN S TABLET ; 1 tab(s) orally once a day Quantity: 0 Refills: 3 Ordered: 12-Jul-2022 Joyce Gonzalez Generic Substitution Allowed Comments: Source=Surescript s, Medication=PRENAT AL VITAMINS TABLET, OriginatingSource =[facility] OriginatingProvid er=BARBI TIAN, Duration=90, Refills=3, Date Last Modified/Filled=1 12-Apr-2022 Comment on above: Source=Surescripts, Medication= VITAMINS TABLET, OriginatingSource=[facility] OriginatingProvider=BARBI TIAN, Duration=90, Refills=3, Date Last Modified/Filled=22-Apr-2022 promethazine hydrochloride 12.5 mg oral tablet (10 sources) Phenothiazine Start: 03-16-2024 End: 06-14-2024 take 12.5-25 mg by mouth every six hours as needed promethazine (PHENERGAN) 12.5 mg tablet Take 1-2 tablets by mouth every 6 hours as needed for nausea/vomiting. Take 1-2 tabls orally or insert 1-2 tablets rectally every 6 hours as needed 60 tablet 03/16/2024 06/14/2024 Active promethazine HCl (PROMETHAZINE ORAL) Take by mouth. 0 Active take 1 tablet by [facility] every six hours as needed PROMETHAZINE 12.5 MG TABLET ; 1 tab(s) o rally every 6 hours, As Needed Quantity: 0 Refills: 6 Ordered: 12-Jul-2022 Joyce Gonzalez Generic Substitution Allowed Comments: Source=Surewandarirobert, Medication=PROMETHAZINE 12.5 MG TABLET, OriginatingSource=[employer] OriginatingProvider=JEWEL DAHL, Duration=15, Refills=6, Date Last Modified/Filled=06-Jul-2022 Comment on above: Source=Surescrirobert, Medication=PROMETHAZINE 12.5 MG TABLET, OriginatingSource=[employer]., OriginatingProvider=JEWEL DAHL, Duration=15, Refills=6, Date Last Modified/Filled=06-Jul-2022 Take by mouth. promethazine (Phenergan) 6.25 mg in sodium chloride 0.9% 50 mL IV (2 sources) Start: 10-03-19 6.25 mg, intravenous, Administer over 15 Minutes, Once as needed, Nausea/vomiting, second line, Starting on Fri10/03/23 at 1143, For 1 dose, Recovery (only) Start: 06-17-2023 6.25 mg, intra venous, Administer over 15 Minutes, Once as needed, Nausea/vomiting, second line, Starting on Fri06/17/23 at 1013, For 1 dose, Recovery (only) Completed/Discontinued Medications Medication Drug Class(es) Dates Sig (Normalized) Sig (Original) acetaminophen 325 mg oral tablet (3 sources) Start: 10-03-2023 End: 10-03-2023 take 975 mg by mouth once as needed for pain 975 mg, oral, Once, On Fri10/03/23 at 1200, For 1 dose, Recovery (only), If ordered PRN for pain, nurse is permitted to administer this medication for higher pain scores based on patient preference? Yes Start: 06-20-2023 take 1 tablet by [facility] every four hours as needed acetaminophen (Tylenol) tablet 650 mg Start: 06-17-2023 End: 06-17-2023 take 975 mg by mouth once as needed for pain 975 mg, oral, Once, On Fri06/17/23 at 0900, For 1 dose, Preprocedure, Administer with small amount of water preoperatively., If ordered PRN for pain, nurse is permitted to administer this medication for higher pain scores based on patient preference? Yes acetaminophen 325 mg / HYDROcodone bitartrate 5 mg oral tablet (3 sources) Opioid Agonist Start: 11-09-2021 HYDROcodone-acetaminophen (NORCO) 5-325 mg per tablet TAKE 1 TABLET EVERY 4 TO 6 HOURS NEEDED PAIN 0 11/09/2021 Active Comment on above: TAKE 1 TABLET EVERY 4 TO 6 HOURS NEEDED PAIN acetaminophen 325 mg / oxyCODONE hydrochloride 5 mg oral tablet (5 sources) Opioid Agonist Start: 06-17-2023 End: 06-20-2023 take 1 tablet by mouth every six hours for pain oxyCODONE-acetaminophen (Percocet) 5-325 mg tablet Indications: Post-operative pain Take 1 tablet by mouth every 6 hours if needed for severe pain (7 - 10) (post-operative pain) for up to 2 days. 6 tablet 06/18/2023 06/20/2023 apixaban 5 mg oral tablet (20 sources) Factor Xa Inhibitor Start: 06-25-2023 End: 12-10-2023 take 1 tablet by mouth twice daily apixaban (Eliquis) 5 mg tablet Indications: Single subsegmental pulmonary embolism without acute cor pulmonale Take 1 tablet (5 mg) by mouth 2 times a day. 120 tablet 06/25/2023 12/10/2023 Discontinued (Therapy completed) Start: 06-21-2023 End: 05-22-2024 take 2 tablets by mouth twice daily, then take 1 tablet by mouth twice daily apixaban (Eliquis) 5 mg (74 tabs) tablet Indications: Single subsegmental pulmonary embolism without acute cor pulmonale (Multi) Take 2 tablets (10 mg) by mouth 2 times a day for 7 days, then take 1 tablet (5 mg) by mouth 2 times a day. 74 tablet 06/21/2023 07/02/2023 Discontinued (Therapy completed) Start: 06-21-2023 take 2 tablets by [facility] twice daily, then take 1 tablet by mouth twice daily apixaban (Eliquis) 5 mg (74 tabs) tablet Indications: Single subsegmental pulmonary embolism without acute cor pulmonale (Multi) Take 2 tablets (10 mg) by mouth 2 times a day for 7 days, then take 1 tablet (5 mg) by mouth 2 times a day. 74 tablet 06/21/2023 Active ARIPiprazole 5 mg oral tablet (7 sources) Atypical Antipsychotic Start: 06-12-2023 End: 07-02-2023 ARIPiprazole (ABILIFY) 5 mg tablet take one half tablet daily in am for a week then take one tablet daily in am 30 tablet 0 06/12/2023 07/02/2023 Discontinued (Side Effects) cefOXitin 2000 mg injection (1 source) Cephalosporin Antibacterial Start: 06-17-2023 End: 06-17-2023 2 g, intravenous, at 100 mL/hr, Administer over 30 Minutes, Once, On Fri06/17/23 at 0900, For 1 dose, Preprocedure, Duplex bag - activate before hanging., Suspected Indication (Select all that apply): Surgical Prophylaxis cetirizine hydrochloride 10 mg oral tablet (3 sources) Histamine-1 Receptor Antagonist Start: 06-19-2017 cetirizine (ZYRTEC) 10 mg tablet Take 10 mg by mouth. 0 06/19/2017 Active Comment on above: Take 10 mg by mouth. colestipol hydrochloride 1000 mg oral tablet (6 sources) Bile Acid Sequestrant Start: 10-16-2023 End: 03-09-2024 take 1 tablet by mouth twice daily colestipol (COLESTID) 1 gram tablet Indications: Status post laparoscopic cholecystectomy , Diarrhea due to malabsorption Take 1 tablet by mouth two times a day. 180 tablet 10/16/2023 03/09/2024 Discontinued (Course of therapy completed) cyclobenzaprine hydrochloride 10 mg oral tablet (9 sources) Muscle Relaxant Start: 05-20-2023 End: 07-02-2023 take 1 tablet by mouth every eight hours as needed cyclobenzaprine (FLEXERIL) 10 mg tablet Take 1 tablet by mouth three times a day as needed for muscle spasm (or pain). Patient should start on May 20, 2023. 21 tablet 0 05/20/2023 07/02/2023 Discontinued 1 ml dexamethasone phosphate 10 mg/ml injection (1 source) Corticosteroid Start: 06-17-2023 End: 06-17-2023 8 mg, intravenous, Once, On Fri06/17/23 at 0900, For 1 dose, Preprocedure docusate sodium 100 mg oral capsule (3 sources) Start: 05-01-2017 docusate sodium (COLACE) 100 mg capsule Take 100 mg by mouth. 0 05/01/2017 Active Comment on above: Take 100 mg by mouth . 12 hr doxylamine succinate 20 mg / pyridoxine hydrochloride 20 mg extended release oral tablet (3 sources) Start: 03-16-2024 End: 04-07-2024 doxylamine-pyridoxin e, vit B6, (BONJESTA) 20-20 mg tablet, delayed release Take 1 tablet at bedtime on day 1. If symptoms persist on day 2, increase to 1 tablet in the moring and 1 tablet at bedtime. 60 tablet 03/16/2024 04/07/2024 Discontinued (Course of therapy completed) escitalopram 10 mg oral tablet (17 sources) Serotonin Reuptake Inhibitor Start: 06-12-2023 End: 07-14-2023 take 1 tablet by mouth once daily escitalopram oxalate (LEXAPRO) 10 mg tablet TAKE 1 TABLET BY MOUTH EVERY DAY 90 tablet 1 07/04/2023 07/14/2023 Discontinued (Course of therapy completed) End: 10-03-2023 take 1 tablet by mouth once daily escitalopram (Lexapro) 5 mg tablet Take 1 tablet (5 mg) by mouth once daily. 10/03/2023 Discontinued (Stop Taking at Discharge) 2 ml famotidine 10 mg/ml injection (13 sources) Histamine-2 Receptor Antagonist Start: 08-24-2024 End: 08-24-2024 20 mg, INTRAVENOUS, 2 TIMES DAILY, 2 doses, First dose on Fri08/24/24 at 1400, Last dose on Fri08/24/24 at 2100, REFRIGERATE Start: 08-20-2024 End: 08-20-2024 20 mg, INTRAVENOUS, 2 TIMES DAILY, 2 doses, First dose on Fri08/20/24 at 1500, Last dose on Fri08/20/24 at 2100, REFRIGERATE Start: 03-09-2024 End: 07-07-2024 take 1 tablet by mouth once daily famotidine (PEPCID) 40 mg tablet Take 1 tablet by mouth once daily. 30 tablet 3 03/09/2024 07/07/2024 Active Start: 06-20-2023 20 mg, intrave nous, Every 12 hours scheduled, First dose on Fri06/20/23 at 0230 gabapentin 300 mg oral capsule (20 sources) Anti-epileptic Agent Start: 07-14-2023 End: 11-24-2023 take 1 tablet by mouth twice daily, then take 2 tablets by mouth once daily at bedtime gabapentin (NEURONTIN) 300 mg capsule take one tablet po bid and 2 tablets po qhs 90 capsule 07/14/2023 11/24/2023 Discontinued Start: 07-14-2023 End: 07-14-2023 take 1 capsule by mouth three times daily, then take 1 capsule by mouth three times daily gabapentin (NEURONTIN) 300 mg capsule Take 1 capsule by mouth three times a day for 90 days. take one tablet tid 270 capsule 0 07/14/2023 07/14/2023 Discontinued (Course of therapy completed) Start: 07-14-2023 End: 07-14-2023 take 1 tablet by mouth once daily at bedtime gabapentin (NEURONTIN) 600 mg tablet Take 1 tablet by mouth daily at bedtime for 90 days. 90 tablet 0 07/14/2023 07/14/2023 Discontinued (Course of therapy completed) Start: 06-20-2023 Start: 06-12-2023 End: 07-17-2023 take 1 capsule by mouth twice daily, then take 2 capsules by mouth once daily at bedtime gabapentin (NEURONTIN) 300 mg capsule take one po bid and 2 tablets po qhs 90 capsule 2 06/12/2023 07/14/2023 Discontinued (Course of therapy completed) Start: 05-13-2023 End: 10-03-2023 take 1 capsule by mouth once daily at bedtime gabapentin (NEURONTIN) 300 mg capsule Take 1 capsule by mouth daily at bedtime for 30 days. 30 capsule 0 05/13/2023 07/02/2023 Discontinued Start: 10-31-2021 take 1 capsule by [facility] twice daily gabapentin (NEURONTIN) 100 mg capsule Take 100 mg by mouth twice daily. 0 10/31/2021 Active take 1 capsule by [facility] three times daily gabapentin (Neurontin) 300 mg capsule Take 1 capsule (300 mg) by mouth 3 times a day. Active Comment on above: Take 100 mg by mouth twice daily. Take 1 capsule by [facility] daily at bedtime for 30 days. 50 ml glucose 500 mg/ml prefilled syringe (1 source) Start: 5 End: 5 25 g, intravenous, Once, On Fri02/18/24 at 1310, For 1 dose Haloperidol (1 source) Typical Antipsychotic Start: 4 End: 4 2 mg, intravenous, Once, On Fri06/20/23 at 0715, For 1 dose, Patients receiving IV haloperidol should be on continuous cardiac monitoring. ibuprofen 600 mg oral tablet (3 sources) Nonsteroidal Anti-inflammatory Drug Start: 0 take 1 tablet by mouth every six hours as needed ibuprofen (MOTRIN) 600 mg tablet Take 1 tablet by mouth every 6 hours as needed for Pain or Fever. 20 tablet 0 07/19/2019 Active Comment on above: Take 1 tablet by [facility] every 6 hours as needed for Pain or Fever. iohexol (OMNIPaque) 350 mg iodine/mL solution 68 mL (2 sources) Start: 4 End: 68 mL, intravenous, Once in imaging, Starting on Fri06/24/23 at 2008, For 1 dose Start: 06-19-2023 End: 06-19-2023 68 mL, intravenous, Once in imaging, Starting on Kimmy 06/19/23 at 1955, For 1 dose iohexol (OMNIPaque) 350 mg iodine/mL solution 72 mL (1 source) Start: 06-21-2023 End: 06-21-2023 72 mL, intravenous, Once in imaging, Starting on 06/21/23 at 0916, For 1 dose 5 ml iron sucrose 20 mg/ml injection (4 sources) Parenteral Iron Replacement Start: 08-24-2024 End: 08-24-2024 200 mg, INTRAVENOUS, ONCE, 1 dose, On Fri08/24/24 at 1400, May administer up to 200 mg via IV push over 5-10 minutes. Start: 08-20-2024 End: 08-20-2024 200 mg, INTRAVENOUS, ONCE, 1 dose, On Fri08/20/24 at 1500, May administer up to 200 mg via IV push over 5-10 minutes. Start: 08-17-2024 End: 08-17-2024 200 mg, INTRAVENOUS, ONCE, 1 dose, On Fri08/17/24 at 1500, May administer up to 200 mg via IV push over 5-10 minutes. Start: 08-12-2024 End: 08-12-2024 200 mg, INTRAVENOUS, ONCE, 1 dose, On Kimmy 08/12/24 at 1430, May administer up to 200 mg via IV push over 5-10 minutes. isoproterenol (Isuprel) 0.2 mg in sodium chloride 0.9% 100 mL (0.002 mg/mL) infusion (1 source) Start: 10-03-2023 End: 10-03-2023 Continuous PRN, Starting on Fri10/03/23 at 0903, Intraprocedure lamoTRIgine 25 mg oral tablet (20 sources) Mood Stabilizer, Anti-epileptic Agent Start: 06-12-2023 End: 09-18-2023 take 1 tablet by mouth once daily lamoTRIgine (LAMICTAL) 25 mg tablet TAKE ONE TABLET DAILY FOR 2 WEEKS THEN TWO TABLETS DAILY FOR 2 WEEKS THEN TAKE THE 100 MG BY MOUTH DAILY 180 tablet 1 07/14/2023 09/18/2023 Discontinued levonorgestrel 0.552962 mg/hr intrauterine system (20 sources) Progestin, Progestin-containi ng Intrauterine Device Start: 06-26-2023 End: 06-24-2028 levonorgestrel (Mirena) 21 mcg/24 hr (8 yrs) 52 mg IUD 52 mg by intrauterine route. 06/26/2023 10/03/2023 Discontinued (Stop Taking at Discharge) Start: 06-26-2023 End: 06-24-2028 levonorgestrel (MIRENA) 21 m cg/24 hours (8 yrs) 52 mg IUD 1 Each by INTRAUTERINE route as directed. 1 Each 0 06/26/2023 08/19/2023 Discontinued 1 ml LORazepam 2 mg/ml injection (1 source) Benzodiazepine Start: 06-20-2023 End: 06-20-2023 1 mg, intravenous, Administer over 5 Minutes, Once as needed, anxiety, if no relief with haldol, Starting on Fri06/20/23 at 0645, For 1 dose, Maximum rate of 2 mg/min. 1 ml medroxyPROGESTERone acetate 150 mg/ml prefilled syringe (17 sources) Progestin Start: 02-13-2023 End: 04-08-2024 medroxyPROGESTERone 150 mg injection (DEPO-PROVERA) Start: 01-30-2023 End: 06-03-2023 medroxyPROGESTERone (DEPO-DC OVERA) 150 mg/mL Inject 1 mL intramuscularly every 12 weeks. 1 mL 4 01/30/2023 06/03/2023 Discontinued (Side Effects) Comment on above: Inject 1 mL intramus cularly every 12 weeks. metoclopramide 10 mg oral tablet (6 sources) Dopamine-2 Receptor Antagonist Start: 025 End: take 1 tablet by mouth every eight hours as needed metoclopramide HCl (REGLAN) 10 mg tablet Take 1 tablet by mouth three times a day as needed. 90 tablet 03/09/2024 03/16/2024 Discontinued (Course of therapy completed) Start: 02-14-2017 metoclopramide HCl (REGLAN) 5 mg tablet Take 5 mg by mouth. 0 02/14/2017 Active Comment on above: Take 5 mg by mouth. mirtazapine 15 mg oral tablet (20 sources) Start: End: take 1 tablet by mouth once daily at bedtime mirtazapine (Remeron) 15 mg tablet Take 1 tablet (15 mg) by mouth once daily at bedtime. 08/07/2023 10/03/2023 Discontinued (Stop Taking at Discharge) nicotine 2 mg oral lozenge (8 sources) Cholinergic Nicotinic Agonist Start: End: Nicotine Polacrilex 2 mg lozenge Indications: Vapes nicotine containing substance Place 1 Lozenge between cheek and gum as needed. 720 Lozenge 2 07/02/2023 07/31/2023 Discontinued Start: 06-25-2023 End: 07-25-2023 apply 1 dose transdermal route every twenty-four hours nicotine (Nicoderm CQ) 14 mg/24 hr patch Indications: Smoking addiction Place 1 patch over 24 hours on the skin once every 24 hours. 30 patch 06/25/2023 07/02/2023 Discontinued (Allergic response) predniSONE 20 mg oral tablet (2 sources) Start: 11-09-2021 take 1 tablet by mouth once daily predniSONE (DELTASONE) 20 mg tablet Take 20 mg by mouth once daily. 0 11/09/2021 Active Comment on above: Take 20 mg by mouth once daily. vit/iron fum/folic ac ( 1 + 1 ORAL) (13 sources) End: 06-03-2023 vit/iron fum/folic ac ( 1 + 1 ORAL) Take by mouth. 0 06/03/2023 Discontinued (Course of therapy completed) vit/iro n fum/folic ac ( 1 + 1 ORAL) Take by mouth. 0 Active Comment on above: Take by mouth. progesterone 200 mg oral capsule (5 sources) Progesterone Start: 08-01-2022 End: 12-03-2022 progesterone micronized (PROMETRIUM) 200 mg capsule INSERT 1 TABLET VAGINALLY NIGHTLY 0 08/01/2022 12/03/2022 Discontinued Comment on above: INSERT 1 TABLET VAGI CHIRAG NIGHTLY progesterone vaginal suppository 200 mg (CPD) (6 sources) End: 12-03-2022 progesterone vaginal suppository 200 mg (CPD) Use 1 Suppository vaginally. Unwrap and insert as directed. 0 12/03/2022 Discontinued progesterone vag inal suppository 200 mg (CPD) Use 1 Suppository vaginally. Unwrap and insert as directed. 0 Active Comment on above: Use 1 Suppository va ginally. Unwrap and insert as directed. promethazine (Phenergan) 12.5 mg in sodium chloride 0.9% 50 mL IV (1 source) Start: 06-19-2023 End: 06-19-2023 12.5 mg, intravenous, Administer over 15 Minutes, Once, On Fri06/19/23 at 2030, For 1 dose 1000 ml sodium chloride 9 mg/ml injection (7 sources) Start: 02-18-2024 End: 02-18-2024 1,000 mL, intravenous, at 999 mL/hr, Administer over 1 Hours, Once, On Fri02/18/24 at 1115, For 1 dose Start: 10-03-2023 End: 10-03-2023 Continuous PRN, Starting on Fri10/03/23 at 0831, Intraprocedure Start: 10-03-2023 take 50 mL intraveno usly every hour 50 mL/hr, intravenous, Continuous, Starting on Fri10/03/23 at 0700, Preprocedure Start: 06-20-2023 End: 06-20-2023 Starting on Fri06/20/23 at 0 312, For 1 dose, Created by cabinet override Start: 06-18-2023 End: 06-19-2023 take 100 mL intravenously every hour 100 mL/hr, intravenous, Continuous, Starting on Fri06/20/23 at 0330 [id number] (Choletec) injection 6 millicurie (1 source) Start: 06-20-2023 End: 06-20-2023 6 millicurie, intravenous, Once in imaging, Starting on Fri06/20/23 at 0625, For 1 dose, Administer immediately and up to 24 hours prior to imaging unless otherwise indicated traMADol hydrochloride 50 mg oral tablet (1 source) Opioid Agonist Start: 10-03-2023 End: 10-03-2023 25 mg, oral, As needed, pain severe (7-10), first line, pain moderate (4-6), second line, Starting on Fri10/03/23 at 1421, For 1 dose, If ordered PRN for pain, nurse is permitted to administer this medication for higher pain scores based on patient preference? Yes 24 hr venlafaxine 150 mg extended release oral capsule (20 sources) Serotonin and Norepinephrine Reuptake Inhibitor Start: 05-13-2023 End: 08-21-2023 take 1 capsule by mouth once daily venlafaxine XR (Effexor-XR) 150 mg 24 hr capsule Take 1 capsule (150 mg) by mouth once daily. 05/13/2023 08/21/2023 Discontinued (Cost of medication) Start: 05-13-2023 End: 06-03-2023 venlafaxine ER (EFFEXOR XR) 37.5 mg 24 hr capsule take one tablet daily for 4 days then increase to 2 tablets daily for 4 days then increase to 3 tablets daily for for 4 days then increase to 150 mg tablet effexor 30 capsule 0 05/13/2023 06/03/2023 Discontinued (Course of therapy completed) Comment on above: Take 150 mg by mouth once daily. Take 1 capsule by mo [facility] once daily. take one tablet krystal y for 4 days then increase to 2 tablets daily for 4 days then increase to 3 tablets daily for for 4 days then increase to 150 mg tablet effexor Problems Active Problems Problem Classification Problem Date Documented Da te Episodic/Chronic Abdominal pain (8 sources) Abdominal pain; 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: [Left upper quadrant pain] Onset: 3 07-12-2022 Episodic Comment on above: ABD PAIN Anxiety disorders (20 sources) Generalized anxiety disorder; 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: [Generalized anxiety disorder] Onset: 9 08-21-2018 Chronic Cardiac dysrhythmias (20 sources) Paroxysmal supraventricular tachycardia; 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: [Paroxysmal SVT (supraventricular tachycardia) (HCC)] Onset: 4 07-31-2023 Chronic Coagulation and hemorrhagic disorders (2 sources) Thrombocytopenia, unspecified; 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: [Thrombocytopenia affecting (HCC)] Onset: 5 Chronic Complication of device; implant or graft (8 sources) IUD threads lost; 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: [Displacement of intrauterine contraceptive device, initial encounter] Onset: 4 08-18-2023 Episodic Contraceptive and procreative management (2 sources) Intrauterine contraceptive device in situ; 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: [Encounter for routine checking of intrauterine contraceptive device] Onset: 5 07-24-2023 Episodic Deficiency and other anemia (2 sources) Iron deficiency anemia, unspecified; 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: [Maternal iron deficiency anemia complicating , third trimester (HCC)] Onset: 5 Episodic Fetopelvic disproportion; obstruction (2 sources) Shoulder girdle dystocia; 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: [Obstructed labor due to shoulder dystocia] 12-17-2022 Episodic Genitourinary symptoms and ill-defined conditions (1 source) Scalding pain on urination ; 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: [Dysuria] Episodic Headache; including migraine (1 source) Headache; including migraine; 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: [Headache, unspecified] Onset: 5 Immunizations and screening for infectious disease (20 sources) Patient encounter status; 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: [Encounter for screening for infections with a predominantly sexual mode of transmission] Onset: 5 Episodic Inflammatory diseases of female pelvic organs (1 source) Acute vaginitis; 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: [Acute vaginitis] Episodic Malposition; malpresentation (2 sources) Maternal care for breech presentation, not applicable or unspecified; 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: [Maternal care for breech presentation, not applicable or unspecified] Onset: 8 Episodic Menopausal disorders (2 sources) Menorrhagia; 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: [Excessive bleeding in the premenopausal period] Onset: 4 09-18-2023 Chronic Menstrual disorders (6 sources) Amenorrhea, unspecified; 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: [Menstrual spotting] Onset: 7 04-23-2023 Chronic Miscellaneous mental health disorders (4 sources) depression; 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: [ depression] Onset: 4 04-23-2023 Episodic Mood disorders (20 sources) Depressive disorder; 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: [Depression] Onset: 7 10-08-2016 Chronic Nausea and vomiting (9 sources) Nausea; 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: [Diarrhea and vomiting] Onset: 7 06-19-2023 Episodic Normal and/or delivery (20 sources) Encounter for supervision of normal first , first trimester; 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: [Encounter for supervision of normal , unspecified, second trimester] Onset: 7 Resolved: 3 10-29-2019 Episodic OB-related trauma to perineum and vulva (2 sources) First degree perineal laceration; 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: [First degree perineal laceration during delivery] 12-17-2022 Episodic Other aftercare (1 source) Postoperative visit; 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: [Encounter for other specified surgical aftercare] 07-08-2023 Episodic Other aftercare (1 source) Drug therapy finding; 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: [roasterman (current) use of anticoagulants] 07-31-2023 Episodic Other aftercare (1 source) Long-term current use of anticoagulant; 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: [roasterman (current) use of anticoagulants] 07-02-2023 Episodic Other complications of (20 sources) Anemia complicating , third trimester; 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: [Anemia in mother complicating , childbirth AND/OR puerperium] Onset: 8 Resolved: 3 10-29-2019 Chronic Other complications of (20 sources) Anemia in mother complicating , childbirth AND/OR puerperium; 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: [Anemia complicating , third trimester] Onset: 8 07-28-2024 Chronic Other complications of (1 source) Diseases of the digestive system complicating , second trimester; 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: [Diseases of the dgstv sys comp , second trimester] Onset: 3 Episodic Other complications of (1 source) Smoking (tobacco) complicating , second trimester; 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: [Smoking (tobacco) complicating , second trimester] Onset: 3 Episodic Other complications of (1 source) Other specified related conditions, second trimester; 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: [Oth related conditions, second trimester] Onset: 3 Episodic Other complications of (1 source) Anxiety; 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: [Other mental disorders complicating the puerperium] 07-14-2023 Episodic Other complications of (1 source) Urinary tract infection in ; 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: [Unspecified infection of urinary tract in , first trimester] 02-18-2024 Episodic Other complications of (2 sources) Unspecified infection of urinary tract in , first trimester; 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: [Unspecified infection of urinary tract in , first trimester ([facility])] Onset: 5 Episodic Other complications of (8 sources) High risk ; 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: [Supervision of other high risk pregnancies, first trimester] 03-10-2024 Episodic Other complications of (3 sources) Vomiting of , unspecified; 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: [Unspecified vomiting of , unspecified as to episode of care or not applicable] 03-17-2024 Episodic Other complications of (12 sources) Heartburn; 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: [Other specified related conditions, third trimester] Onset: 5 07-27-2024 Episodic Other complications of (10 sources) Thrombocytopenic disorder; 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: [Other diseases of the blood and blood-forming organs and certain disorders involving the immune mechanism complicating , unspecified trimester] Onset: 5 08-05-2024 Episodic Other complications of (1 source) Supervision of high risk , unspecified, third trimester; 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: [Supervision of high risk in third trimester (HCC)] Onset: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 Performed By: #### 2 4323-8 #### [facility] CLIA [id number] [address] [place] [address] [facility] ALP [Catalytic activity/Vol] 53 U/L Normal 34-123 [facility] Comment on above: Order Comment: Speci men Type: BLOOD SPECIMEN [facility]ing [facility] Address: [address] [place] [address] Performed By: #### 2 4323-8 #### [facility] CLIA [id number] [address] ALT With P-5'-P [Catalytic activity/Vol] 21 U/L Normal 7-38 [facility] Comment on above: Order Comment: Speci men Type: BLOOD SPECIMEN [facility]ing [facility]: [facility] Address: [address] [place] [address] Performed By: #### 2 4323-8 #### [facility] CLIA [id number] [address] [place] [address] [facility] OF ANN Anion gap [Moles/Vol] 14 mmol/L Normal 8-15 [facility] Comment on above: Order Comment: Speci men Type: BLOOD SPECIMEN [facility]ing [facility] Address: [address] [place] [address] Performed By: #### 2 4323-8 #### [facility] CLIA [id number] [address] [place] [address] [facility] AST With P-5'-P [Catalytic activity/Vol] 22 U/L Normal 13-35 [facility] Comment on above: Order Comment: Speci men Type: BLOOD SPECIMEN [facility]ing [facility]: [facility] Address: [address] [place] [address] Performed By: #### 2 4323-8 #### [facility] CLIA [id number] [address] [place] [address] [place] Bilirubin [Mass/Vol] 0.3 mg/dL Normal 0.2-1.3 [facility] Comment on above: Order Comment: Speci men Type: BLOOD SPECIMEN [facility]ing [facility] Address: [address] [place] [address] Performed By: #### 2 4323-8 #### [facility] CLIA [id number] [address] [place] [address] [place] Calcium [Mass/Vol] 8.7 mg/dL Normal 8.5-10.2 [facility] Comment on above: Order Comment: Speci men Type: BLOOD SPECIMEN [facility]ing Facility: [facility] Address: [address] [place] [address] Performed By: #### 2 4323-8 #### [facility] CLIA [id number] [address] [place] [address] [place] Chloride [Moles/Vol] 98 mmol/L Normal 98-107 [facility] Comment on above: Order Comment: Speci men Type: BLOOD SPECIMEN [facility]ing Facility: [facility] Address: [address] [place] [address] Performed By: #### 2 4323-8 #### [facility] CLIA [id number] [address] [place] [address] [place] CO2 [Moles/Vol] 21 mmol/L Low 22-30 [facility] Comment on above: Order Comment: Speci men Type: BLOOD SPECIMEN [facility]ing [facility]: [facility] Address: [address] [place] [address] Performed By: #### 2 4323-8 #### [facility] CLIA [id number] [address] [place] [address] [place] Creatinine [Mass/Vol] 0.57 mg/dL Low 0.58-0.96 [facility] Comment on above: Order Comment: Kayli moon Type: BLOOD SPECIMEN [facility]ing Facility: [facility] Address: [address] [place] [address] Performed By: #### 2 4323-8 #### [facility] CLIA [id number] [address] [place] [address] [place] Creatinine and Glomerular filtration rate.predicted panel (S/P/Bld) 133 mL/min/1.73m??? Normal >=60 [facility] Comment on above: Order Comment: Kayli moon Type: BLOOD SPECIMEN [facility]ing [facility]: [facility] Address: [address] [place] [address] Result Comment: Nick mated Glomerular Filtration Rate (eGFR) is calculated using the 2020 CKD-EPI creatinine equation. This equation utilizes serum creatinine, sex, and age as parameters. The creatinine assay has traceable calibration to isotope dilution-mass spectrometry. Refer to KDIGO guidelines for clinical interpretation. In patients with unstable renal function, e.g. those with acute kidney injury, the eGFR may not accurately reflect actual GFR. Performed By: #### 2 4323-8 #### [facility] CLIA [id number] [address] [place] [address] [place] Glucose [Mass/Vol] 77 mg/dL Normal 74-99 [facility] Comment on above: Order Comment: Kayli moon Type: BLOOD SPECIMEN Ordering Facility: [facility] Address: [address] [place] [address] Result Comment: The [place] Diabetes Association (ADA) provides guidance for cutoff values for fasting glucose and random glucose. The ADA defines fasting as no caloric intake for at least 8 hours. Fasting plasma glucose results between 100 to 125 mg/dL indicate increased risk for diabetes (prediabetes). Fasting plasma glucose results greater than or equal to 126 mg/dL meet the criteria for diagnosis of diabetes. In the absence of unequivocal hyperglycemia, results should be confirmed by repeat testing. In a patient with classic symptoms of hyperglycemia or hyperglycemic crisis, random plasma glucose results greater than or equal to 200 mg/dL meet the criteria for diagnosis of diabetes. Reference: Standards of Medical Care in Diabetes 2016, [place] [employer] Association. Diabetes Care. 2016.39(Suppl 1). Performed By: #### 2 4323-8 #### [facility] CLIA [id number] [address] [place] [address] [place] Potassium [Moles/Vol] 3.6 mmol/L Low 3.7-5.1 [facility] Comment on above: Order Comment: Speci men Type: BLOOD SPECIMEN Ordering Facility: [facility] Address: [address] [place] [address] Performed By: #### 2 4323-8 #### [facility] CLIA [id number] [address] [place] [address] [place] Protein [Mass/Vol] 6.4 g/dL Normal 6.3-8.0 [facility] Comment on above: Order Comment: Speci men Type: BLOOD SPECIMEN Ordering Facility: [facility] Address: [address] [place] [address] Performed By: #### 2 4323-8 #### [facility] CLIA [id number] [address] [place] [address] [place] Sodium [Moles/Vol] 133 mmol/L Low 136-144 [facility] Comment on above: Order Comment: Speci men Type: BLOOD SPECIMEN Ordering Facility: [facility] Address: [address] [place] [address] Performed By: #### 2 4323-8 #### [facility] CLIA [id number] [address] [place] [address] [place] Urea nitrogen [Mass/Vol] 7 mg/dL Normal 7-21 [facility] Comment on above: Order Comment: Speci men Type: BLOOD SPECIMEN Ordering Facility: [facility] Address: [address] [place] [address] Performed By: #### 2 4323-8 #### [facility] CLIA [id number] [address] [place] [address] [facility] ED NOTEon 03-10-2024 ED NOTE HNO ID: [id number] Author: MITRA CAMARGO RN Service: ? Author Type: Registered Nurse Type: ED Notes Filed: 03/12/2024 09:10 Note Text: Patient Call Back Information How are you doing ? no change Did we appropriately manage your pain? Yes Did you understand your discharge instructions? Yes Did you get your prescriptions filled? Yes Were you able to make a follow-up appointment with your physician? no Were you comfortable during your stay here? Yes Did a member of the ER nursing team round on you during your visit? Yes You will receive a patient satisfaction survey in the mail in the nest 2 weeks, please take the time to fill out the survey as your input from your ER visit is very important to us. Yes Can we do anything else to help you? No [facility] ED NOTE HNO ID: [id number] Author: ALL MCCOY RN Service: Emergency Medicine Author Type: Registered Nurse Type: ED Notes Filed: 03/10/2024 20:31 Note Text: Patient discharge instructions given to patient. Patient educated on discharge instructions and prescription. Patient denied having questions at this time regarding discharge instructions. Patient discharged home at this time. [facility] ED NOTE HNO ID: [id number] Author: ALL MCCOY RN Service: Emergency Medicine Author Type: Registered Nurse Type: ED Notes Filed: 03/10/2024 19:22 Note Text: ED physician at bedside. [facility] ED NOTE HNO ID: [id number] Author: ALL MCCOY RN Service: Emergency Medicine Author Type: Registered Nurse Type: ED Notes Filed: 03/10/2024 19:07 Note Text: Change of shift report received from Mitra Brown RN. I assume patient care at this time. [facility] ED NOTE HNO ID: [id number] Author: MITRA CAMARGO RN Service: ? Author Type: Registered Nurse Type: ED Notes Filed: 03/10/2024 19:02 Note Text: Report to a kelli mccoy [facility] ED NOTE HNO ID: [id number] Author: MITRA CAMARGO, KELLI Service: ? Author Type: Registered Nurse Type: ED Notes Filed: 03/10/2024 18:13 Note Text: Dr traore at bedside for exam Normal [facility] ED NOTE HNO ID: [id number] Author: MITRA CAMARGO, KELLI Service: ? Author Type: Registered Nurse Type: ED Notes Filed: 03/10/2024 18:10 Note Text: Pt is 9 weeks . Pt is having n/v/d and fever for 3 days. Pt 's other children had similar symptoms. Normal [facility] ED PROV NOTEon 03-10-2024 ED PROV NOTE HNO ID: [id number] Author: JAQUELIN ARTEAGA DO Service: Emergency Medicine Author Type: Physician Type: ED Provider Notes Filed: 03/11/2024 00:12 Note Text: ED Provider Note Patient Name: Keagan Alicia : 2000 SERVICE DATE: 03/10/24 History Patient presents with: Nausea AND Vomiting Keagan Alicia is a 23 year old female who presents with Nausea AND Vomiting. - Symptoms began Friday. - Severity: moderate - Timing: constant - Quality: sore - Symptoms are associated with diarrhea, cough, sore throat, fever. - Symptoms are not associated with abdominal pain, chest pain, shortness of breath, vaginal bleeding, dysuria. . Patient presents with nausea, vomiting, diarrhea, sore throat and cough starting on Friday. She states also had a fever. She states her kids had similar symptoms. She is 9 weeks . She denies abdominal pain. No vaginal bleeding. No flank pain. No dysuria. No chest pain or shortness of breath. PAST MEDICAL HISTORY Diagnosis Date Anemia Chronic tonsillitis Depression 10/08/2016 Gall stone 07/2022 cholecystectomy after delivery GERD (gastroesophageal reflux disease) H/O shoulder dystocia in prior , currently 12/14/22 Hemorrhoids History of back problems History of depression History of shoulder dystocia in prior 03/10/2024 Kidney stones Paroxysmal SVT (supraventricular tachycardia) (HCC) Postoperative pulmonary embolism (HCC) 06/2023 Psychiatric disorder depression, anxiety and PTSD PAST SURGICAL HISTORY Procedure Laterality Date CHOLECYSTECTOMY HX 06/17/2023 [facility] IUD REMOVAL 09/15/2023 PT ED HEART AND VASCULAR 10/03/2023 TONSILLECTOMY HX FAMILY HISTORY Problem Relation Age of Onset other (migraines) Mother None Father Ovarian cancer Maternal Grandmother Anesthesia Problems No Family History Social History Tobacco Use Smoking status: Never Passive exposure: Yes Smokeless tobacco: Never Tobacco comments: Vapes Vaping Use Vaping status: Every Day Substances: Nicotine, Flavoring Devices: Disposable Substance and Sexual Activity Alcohol use: Not Currently Drug use: Not Currently Frequency: 2.0 times per week Types: Marijuana Comment: smoking Sexual activity: Yes Partners: Male ALLERGIES Allergen Reactions Latex Itching Review of Systems Constitutional: Negative for chills and fever. HENT: Positive for sore throat. Negative for drooling, facial swelling, trouble swallowing and voice change. Respiratory: Positive for cough. Negative for shortness of breath. Cardiovascular: Negative for chest pain. Gastrointestinal: Positive for diarrhea, nausea and vomiting. Negative for abdominal pain. Genitourinary: Negative for dysuria, flank pain, hematuria, vaginal bleeding and vaginal discharge. Skin: Negative for rash. Neurological: Negative for weakness and numbness. Psychiatric/Behavior al: Negative for agitation and confusion. Physical Exam Vitals [03/10/24 1808] BP Pulse Temp Temp src Resp SpO2 Weight Height 114/74 (!) 107 37.8 ?C (100 ?F) Temporal Art 18 100 % 58.6 kg (129 lb 3 oz) -- Physical Exam Vitals and nursing note reviewed. Constitutional: Appearance: She is not toxic-appearing or diaphoretic. HENT: Head: Normocephalic and atraumatic. Mouth/Throat: Mouth: Mucous membranes are moist. Pharynx: Oropharynx is clear. No oropharyngeal exudate or posterior oropharyngeal erythema. Eyes: General: No scleral icterus. Conjunctiva/sclera: Conjunctivae normal. Cardiovascular: Rate and Rhythm: Normal rate and regular rhythm. Pulses: Normal pulses. Pulmonary: Effort: Pulmonary effort is normal. Breath sounds: Normal breath sounds. Abdominal: General: Abdomen is flat. Bowel sounds are normal. There is no distension. Palpations: Abdomen is soft. Tenderness: There is no abdominal tenderness. There is no right CVA tenderness, left CVA tenderness, guarding or rebound. Musculoskeletal: Cervical back: Normal range of motion and neck supple. Right lower leg: No edema. Left lower leg: No edema. Skin: General: Skin is warm and dry. Capillary Refill: Capillary refill takes less than 2 seconds. Neurological: General: No focal deficit present. Mental Status: She is alert and oriented to person, place, and time. GCS: GCS eye subscore is 4. GCS verbal subscore is 5. GCS motor subscore is 6. Psychiatric: Mood and Affect: Mood normal. Behavior: Behavior normal. Diagnostic Testing ED Labs Ordered and Reviewed COMPREHENSIVE METABOLIC PANEL - Abnormal; Notable for the following components: Result Value Ref Range Creatinine 0.57 (*) 0.58 - 0.96 mg/dL Sodium 133 (*) 136 - 144 mmol/L Potassium 3.6 (*) 3.7 - 5.1 mmol/L CO2 21 (*) 22 - 30 mmol/L All other components within normal limits COMPLETE BLOOD COUNT AND DIFFERENTIAL - Abnormal; Notable for the following com (more content not included)... Normal 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 Method Transabdominal and transvaginal ultrasound examination Carney . Number of embryos: 1 Dating LMP on: 01/07/2024 GA by LMP 8 w + 6 d LUZ by LMP: 10/13/2024 Ultrasound examination on: 03/09/2024 GA by U/S based upon: CRL GA by U/S 9 w + 1 d ULZ by U/S: 10/11/2024 Assigned: based on the LMP, selected on 03/09/2024 Assigned GA 8 w + 6 d Assigned LUZ: 10/13/2024 Biometry Standard FHR 180 bpm CRL 24.6 mm 9w 1d 94% Hadlock Assessment Gestational sac: visualized Location: intrauterine Yolk sac: visualized Embryo: visualized CRL 24.6 mm 9w 1d 94% Hadlock Cardiac activity: present FHR 180 bpm General Evaluation Cardiac activity present. FHR 180 bpm Performed By: Jaquelin Hi CNM Read By: Jaquelin Hi CNM MATERNAL MEDICINE [facility] S pyo DNA Throat Ql SHYAM+prob suman 03-10-2024 S. pyogenes DNA SHYAM+probe Ql (Throat) Not detected Normal Not detected [facility] Comment on above: Order Comment: Speci men Type: SWAB Ordering Facility: [facility] Address: [address] [place] [address] Performed By: #### 6 0489-2 #### [facility] CLIA [id number] [address] [place] [address] [facility] [place] Urinalysis complete panel (U )on 03-10-2024 Bacteria LM.HPF (Urine sed) [#/Area] Moderate Abnormal None Seen [facility] Comment on above: Order Comment: Speci men Type: URINE SPECIMEN Ordering Facility: [facility] Address: [address] [place] [address] Performed By: #### 2 4356-8 #### [facility] CLIA [id number] [address] [place] Bilirubin Ql (U) Negative Normal Negative [facility] Comment on above: Order Comment: Speci men Type: URINE SPECIMEN Ordering Facility: [facility] Address: [address] [place] [address] Performed By: #### 2 4356-8 #### [facility] CLIA [id number] [address] [place] [address] [place] Clarity (Unsp spec) Slightly Cloudy Abnormal Clear [facility] Comment on above: Order Comment: Speci men Type: URINE SPECIMEN Ordering Facility: [facility] Address: [address] [place] [address] Performed By: #### 2 4356-8 #### [facility] CLIA [id number] [address] [place] [address] [facility] [place] Color (U) Yellow Normal Yellow [facility] Comment on above: Order Comment: Speci men Type: URINE SPECIMEN Ordering Facility: [facility] Address: [address] [place] [address] Performed By: #### 2 4356-8 #### [facility] CLIA [id number] [address] [place] [address] [facility] [place] Epithelial cells LM.HPF (Urine sed) [#/Area] Few Normal [facility] Comment on above: Order Comment: Speci men Type: URINE SPECIMEN Ordering Facility: [facility] Address: [address] [place] [address] Performed By: #### 2 4356-8 #### [facility] CLIA [id number] [address] [place] [address] [facility] [place] Glucose Test strip (U) [Mass/Vol] Negative Normal Negative [facility] Comment on above: Order Comment: Speci men Type: URINE SPECIMEN Ordering Facility: [facility] Address: [address] [place] [address] Performed By: #### 2 4356-8 #### [facility] CLIA [id number] [address] [place] [address] [facility] [place] Hemoglobin Ql (U) Trace Abnormal Negative [facility] Comment on above: Order Comment: Speci men Type: URINE SPECIMEN Ordering Facility: [facility] Address: [address] [place] [address] Performed By: #### 2 4356-8 #### [facility] CLIA [id number] [address] [place] [address] [facility] Ketones Ql (U) 4+ Abnormal Negative [facility] Comment on above: Order Comment: Speci men Type: URINE SPECIMEN Ordering Facility: [facility] Address: [address] [place] [address] Performed By: #### 2 4356-8 #### [facility] CLIA [id number] [address] [place] [address] [facility] [place] Leukocyte esterase Test strip Ql (U) Negative Normal Negative [facility] Comment on above: Order Comment: Speci men Type: URINE SPECIMEN Ordering Facility: [facility] Address: [address] [place] [address] Performed By: #### 2 4356-8 #### [facility] CLIA [id number] [address] [place] [address] [facility] [place] Nitrite Ql (U) Negative Normal Negative [facility] Comment on above: Order Comment: Speci men Type: URINE SPECIMEN Ordering Facility: [facility] Address: [address] [place] [address] Performed By: #### 2 4356-8 #### [facility] CLIA [id number] [address] [place] [address] [place] pH (U) 6.0 [pH] Normal 5.0-8.0 [facility] Comment on above: Order Comment: Speci men Type: URINE SPECIMEN Ordering Facility: [facility] Address: [address] [place] [address] Performed By: #### 2 4356-8 #### [facility] CLIA [id number] [address] [place] [address] Protein (U) [Mass/Vol] 1+ Abnormal Negative [facility] Comment on above: Order Comment: Speci men Type: URINE SPECIMEN Ordering Facility: [facility] Address: [address] [place] [address] Performed By: #### 2 4356-8 #### [facility] CLIA [id number] [address] [place] [address] RBC LM.HPF (Urine sed) [#/Area] 3-5 /HPF Abnormal 0-3 /HPF [facility] Comment on above: Order Comment: Speci men Type: URINE SPECIMEN Ordering Facility: [facility] Address: [address] [place] [address] Performed By: #### 2 4356-8 #### [facility] CLIA [id number] [address] [place] [address] [place] Specific gravity (U) [Rel density] >=1.030 High 1.005-1.030 [facility] Comment on above: Order Comment: Speci men Type: URINE SPECIMEN Ordering Facility: [facility] Address: [address] [place] [address] Performed By: #### 2 4356-8 #### [facility] CLIA [id number] [address] [place] [address] [place] Urobilinogen Ql (U) 0.2 EU/dL Normal 0.2-1.0 EU/dL [facility] Comment on above: Order Comment: Speci men Type: URINE SPECIMEN Ordering Facility: [facility] Address: [address] [place] [address] Performed By: #### 2 4356-8 #### [facility] CLIA [id number] [address] [place], [place] [id number] [place] WBC LM.HPF (Urine sed) [#/Area] 0-5 /HPF Normal 0-5 /HPF [facility] Comment on above: Order Comment: Speci men Type: URINE SPECIMEN Ordering Facility: [facility] Address: [address] [place] [address] Performed By: #### 2 4356-8 #### [facility] CLIA [id number] [address] [place] [address] [place] BACTERIAL VAGINOSIS NAATon 0 03-09-2024 Lactobacillus crispatus+gasseri+jense mendoza + Gardnerella vaginalis + Atopobium vaginae rRNA SHYAM+probe Ql (Vag fld) Not detected Normal Not detected [facility] Comment on above: Order Comment: Speci men Type: SWABOrdering Facility: [facility] Address: [address] [place] [address] Performed By: #### C VTV, BVAMP ####[facility] [id number] [place] [address] [place] Bacteria Ur Culton 5 Bacteria identified Cx Nom (U) ORGANISM ID: 1 <10,000 CFU/ml Normal urogenital nicolette Normal [facility] Comment on above: Performed By: #### 6 30-4 ####[facility] [id number] [place] [address] [place] C. trachomatis+N. gonorrhoea e DNA SHYAM+probe Ql (Unsp spec)on 03-09-2024 C. trachomatis rRNA SHYAM+probe Ql (Unsp spec) Not detected Normal Not detected [facility] Comment on above: Order Comment: Speci men Type: BLOOD SPECIMEN Ordering Facility: [facility] Address: [address] [place] [address] Performed By: #### 2 4321-2 #### [facility] CLIA [id number] [address] [place] [address] [place] N. gonorrhoeae rRNA SHYAM+probe Ql (Unsp spec) Not detected Normal Not detected [facility] Comment on above: Order Comment: Speci men Type: BLOOD SPECIMEN Ordering Facility: [facility] Address: [address] [place] [address] Performed By: #### 2 4321-2 #### [facility] CLIA [id number] [address] [place] [address] [place] ALMITA/TRICHOMONAS NAATon 0 03-09-2024 C. glabrata RNA SHYAM+probe Ql (Vag fld) Not detected Normal Not detected [facility] Comment on above: Order Comment: Speci men Type: SWABOrdering Facility: [facility] Address: [address] [place] [address] Performed By: #### C VTV, BVAMP ####[facility] LAB[facility] [id number] [address] [place] Almita sp DNA SHYAM+probe Ql (Vag fld) Not detected Normal Not detected [facility] Comment on above: Order Comment: Speci men Type: SWABOrdering Facility: [facility] Address: [address] [place] [address] Result Comment: The Almita species group target includes C. albicans, C. tropicalis, C. parapsilosis, and C. dubliniensis. Performed By: #### C VTV, BVAMP ####[facility] LAB[facility] [id number] [address] [place] T. vaginalis DNA SHYAM+probe Ql (Unsp spec) Not detected Normal Not detected [facility] Comment on above: Order Comment: Speci men Type: SWABOrdering Facility: [facility] Address: [address] [place] [address] Performed By: #### C VTV, BVAMP ####[facility] LABCLIA [id number] [place] [address] [place] PAP TESTon 03-09-2024 ADEQUACY Satisfactory for interpretation. Normal [facility] Comment on above: Order Comment: Speci men Type: BLOOD SPECIMEN Ordering Facility: [facility] Address: [address] [place] [address] Performed By: #### 2 4321-2 #### [facility] CLIA [id number] [address] [place] [address] [place] CASE REPORT Normal [facility] Comment on above: Order Comment: Speci men Type: BLOOD SPECIMEN Ordering Facility: [facility] Address: [address] [place] [address] Result Comment: Gyne cologic Cytology Report Case: [id number] Authorizing Provider: Jaquelin Hi APRN.CNM Collected: 03/09/2024 02:20 PM Ordering Location: OB/Gynecology Received: 03/09/2024 04:49 PM First Screen: Mohorcic, Lianet, CT, ASCP Specimen: Pap Test, ThinPrep, Cervix Performed By: #### 2 4321-2 #### [facility] CLIA [id number] [address] [place] [address] [place] CLINICAL HISTORY, CYTOLOGY, POWER OPERATOR Routine Exam Normal [facility] Comment on above: Order Comment: Speci men Type: BLOOD SPECIMEN Ordering Facility: [facility] Address: [address] [place] [address] Performed By: #### 2 4321-2 #### [facility] CLIA [id number] [address] [place], [place] [address] [place] FINAL PERFORMING LAB Normal [facility] Comment on above: Order Comment: Speci men Type: BLOOD SPECIMEN Ordering Facility: [facility] Address: [address] [place] [address] Result Comment: Tech nical component, cement finishing supervisor screening performed at [facility], [address] [facility], [place] [address] CLIA# [id number] Diagnostic interpretation performed at [facility], [address], [place] [address] CLIA# [id number] Computer Applications Developer: Kirsten Abad M.D. Performed By: #### 2 4321-2 #### [facility] CLIA [id number] [address] [place] [address] [place] INTERPRETATION, CYTOLOGY, POWER OPERATOR Normal [facility] Comment on above: Order Comment: Speci men Type: BLOOD SPECIMEN Ordering Facility: [facility] Address: [address] [place] [address] Result Comment: Nega tive for intraepithelial lesion or malignancy. Performed By: #### 2 4321-2 #### [facility] CLIA [id number] [address] [place] [address] [place] LMP 01/07/2024 Normal [facility] Comment on above: Order Comment: Speci men Type: BLOOD SPECIMEN Ordering Facility: [facility] Address: [address] [place] [address] Performed By: #### 2 4321-2 #### [facility] CLIA [id number] [address] [place] [address] [place] PAP DISCLAIMER COMMENT The Pap Smear is a screening test for cervical cancer. False negative results occur with all screening tests, emphasizing the need for rescreening at recommended intervals, and clinical correlation. Normal [facility] Comment on above: Order Comment: Speci men Type: BLOOD SPECIMEN Ordering Facility: [facility] Address: [address] [place], [place] [id number] Performed By: #### 2 4321-2 #### [facility] [id number] [address] [place] [address] OF ANN PAP COMMERCIAL MANAGER COMMENT This specimen has been analyzed by the ThinPrep Imaging System, an automated imaging and review system, which assists the laboratory in evaluating cells on ThinPrep Pap tests. Following automated imaging, selected barnhart from every slide are reviewed by a cement finishing supervisor. Normal [facility] Comment on above: Order Comment: Speci men Type: BLOOD SPECIMEN Ordering Facility: [facility] Address: [address] [place] [address] Performed By: #### 2 4321-2 #### [facility] [id number] [address] [place] [address] OF ANN POC ASPHALT SPREADER OPERATOR ULTRASOUNDon 03-09-19 Radiology Study observation (narrative) [facility] Bacteria identifiedon 2024 Bacteria identified Cx Nom (U) Test: Urine Culture Specimen Source: Clean Catch/Voided Specimen Type: Urine Specimen Date: 02/18/2024 1130 Result Date: 02/20/2024 0935 Result Status: Final result Abnormal: No Resulting Lab: [facility] [id number] [address] CULTURE Clinically insignificant growth based on current clinical standards. [facility] Comment on above: Performed By: #### 5 7021-8 #### TORRES VENTURA ([id number]) [facility] ([facility]) [address] [place] [address] Blood type and Indirect anti body screen panel (Bld)on 02-18-2024 ABO group Nom (Bld) A Unive [facility] Blood group antibody screen Ql Negative [facility] D Ag Ql (Bld) Negative [facility] Review your Rh Negative female patient's potential need for Rh Immune Globulin (RhIg)administration . [facility] ABO group Nom (Bld) A Normal [facility] Comment on above: Order Comment: Venip uncture immediately after or during the administration of Metamizole may lead to falsely low results. Testing should be performed immediately prior to Metamizole dosing. Performed By: #### 3 040-3 #### MELISSA WHITEHEAD ([id number]) [facility] ([facility]) [address] [place] [address] Blood group antibody screen Ql Negative [facility] Comment on above: Order Comment: Venip uncture immediately after or during the administration of Metamizole may lead to falsely low results. Testing should be performed immediately prior to Metamizole dosing. Performed By: #### 3 040-3 #### MELISSA WHITEHEAD ([id number]) [facility] ([facility]) [address] [place] [address] D Ag Ql (Bld) Negative [facility] Comment on above: Order Comment: Venip uncture immediately after or during the administration of Metamizole may lead to falsely low results. Testing should be performed immediately prior to Metamizole dosing. Performed By: #### 3 040-3 #### MELISSA WHITEHEAD ([id number]) [facility] ([facility]) [address] [place] [address] CBC W Auto Differential pane l (Bld)on 02-18-2024 Basophils (Bld) [#/Vol] 0.03 10*3/uL [facility] Basophils/100 WBC (Bld) 0.5 % 0.0 - 2.0 % [facility] Eosinophils (Bld) [#/Vol] 0.05 10*3/uL [facility] Eosinophils/100 WBC (Bld) 0.8 % 0.0 - 6.0 % [facility] Erythrocyte distribution width (RBC) [Ratio] 13.6 % 11.5 - 14.5 % [facility] Hematocrit (Bld) [Volume fraction] 39.8 % 36.0 - 46.0 % [facility] Hemoglobin (Bld) [Mass/Vol] 13.3 g/dL 12.0 - 16.0 g/dL [facility] Immature granulocytes (Bld) [#/Vol] 0.02 10*3/uL [facility] Immature granulocytes/100 WBC (Bld) 0.3 % 0.0 - 0.9 % [facility] Comment on above: Immature Granulocyte Count (IG) includes promyelocytes, myelocytes and metamyelocytes but does not include bands. Percent differential counts (%) should be interpreted in the context of the absolute cell counts (cells/UL). Lymphocytes (Bld) [#/Vol] 1.52 10*3/uL [facility] Lymphocytes/100 WBC (Bld) 23.6 % 13.0 - 44.0 % [facility] MCH (RBC) [Entitic mass] 28.9 pg 26.0 - 34.[address] [facility] MCHC (RBC) [Mass/Vol] 33.4 g/dL 32.0 - 36.0 g/dL [facility] MCV (RBC) [Entitic vol] 87 fL 80 - [address] [facility] Monocytes (Bld) [#/Vol] 0.54 10*3/uL [facility] Monocytes/100 WBC (Bld) 8.4 % 2.0 - 10.0 % [facility] Neutrophils (Bld) [#/Vol] 4.29 10*3/uL [facility] Comment on above: Percent differential counts (%) should be interpreted in the context of the absolute cell counts (cells/uL). Neutrophils/100 WBC (Bld) 66.4 % 40.0 - 80.0 % [facility] Nucleated RBC/100 WBC (Bld) [Ratio] 0 % [facility] Platelets (Bld) [#/Vol] 182 10*3/uL [facility] RBC (Bld) [#/Vol] 4.6 10*6/uL [facility] WBC (Bld) [#/Vol] 6.5 10*3/uL [facility] Basophils (Bld) [#/Vol] 0.03 x10*3/uL Normal 0.00-0.10 [facility] Comment on above: Performed By: #### 3 040-3 #### MELISSA WHITEHEAD ([id number]) [facility] ([facility]) [address] [place] [address] Basophils/100 WBC (Bld) 0.5 % Normal 0.0-2.0 [facility] Comment on above: Performed By: #### 3 040-3 #### MELISSA WHITEHEAD ([id number]) [facility] ([facility]) [address] [place] [address] 83066 Eosinophils (Bld) [#/Vol] 0.05 x10*3/uL Normal 0.00-0.70 [facility] Comment on above: Performed By: #### 3 040-3 #### MELISSA WHITEHEAD ([id number]) [facility] ([facility]) [address] [place] [address] 16038 Eosinophils/100 WBC (Bld) 0.8 % Normal 0.0-6.0 [facility] Comment on above: Performed By: #### 3 040-3 #### MELISSA WHITEHEAD ([id number]) [facility] ([facility]) [address] [place] [address] 58625 Erythrocyte distribution width (RBC) [Ratio] 13.6 % Normal 11.5-14.5 [facility] Comment on above: Performed By: #### 3 040-3 #### MELISSA WHITEHEAD ([id number]) [facility] ([facility]) [address] [place] [address] 89282 Hematocrit (Bld) [Volume fraction] 39.8 % Normal 36.0-46.0 [facility] Comment on above: Performed By: #### 3 040-3 #### MELISSA WHITEHEAD ([id number]) [facility] ([facility]) [address] [place] [address] 90315 Hemoglobin (Bld) [Mass/Vol] 13.3 g/dL Normal 12.0-16.0 [facility] Comment on above: Performed By: #### 3 040-3 #### MELISSA WHITEHEAD ([id number]) [facility] ([facility]) [address] [place] [address] 48508 Immature granulocytes (Bld) [#/Vol] 0.02 x10*3/uL Normal 0.00-0.70 [facility] Comment on above: Performed By: #### 3 040-3 #### MELISSA WHITEHEAD ([id number]) [facility] ([facility]) [address] [place] [address] 14403 Immature granulocytes/100 WBC (Bld) 0.3 % Normal 0.0-0.9 [facility] Comment on above: Result Comment: Betty ture Granulocyte Count (IG) includes promyelocytes, myelocytes and metamyelocytes but does not include bands. Percent differential counts (%) should be interpreted in the context of the absolute cell counts (cells/UL). Performed By: #### 3 040-3 #### MELISSA WHITEHEAD ([id number]) [facility] ([facility]) [address] [place] [address] 20870 Lymphocytes (Bld) [#/Vol] 1.52 x10*3/uL Normal 1.20-4.80 [facility] Comment on above: Performed By: #### 3 040-3 #### MELISSA WHITEHEAD ([id number]) [facility] ([facility]) [address] [place] [address] 02701 Lymphocytes/100 WBC (Bld) 23.6 % Normal 13.0-44.0 [facility] Comment on above: Performed By: #### 3 040-3 #### MELISSA WHITEHEAD ([id number]) [facility] ([facility]) [address] [place] [address] 37376 MCH (RBC) [Entitic mass] 28.9 pg Normal 26.0-34.0 [facility] Comment on above: Performed By: #### 3 040-3 #### MELISSA WHITEHEAD ([id number]) [facility] ([facility]) [address] [place] [address] 96094 MCHC (RBC) [Mass/Vol] 33.4 g/dL Normal 32.0-36.0 [facility] Comment on above: Performed By: #### 3 040-3 #### MELISSA WHITEHEAD ([id number]) [facility] ([facility]) [address] [place] [address] 48347 MCV (RBC) [Entitic vol] 87 fL Normal 80-100 [facility] Comment on above: Performed By: #### 3 040-3 #### MELISSA WHITEHEAD ([id number]) [facility] ([facility]) [address] [place] [address] 81821 Monocytes (Bld) [#/Vol] 0.54 x10*3/uL Normal 0.10-1.00 [facility] Comment on above: Performed By: #### 3 040-3 #### MELISSA WHITEHEAD ([id number]) [facility] ([facility]) [address] [place] [address] 33998 Monocytes/100 WBC (Bld) 8.4 % Normal 2.0-10.0 [facility] Comment on above: Performed By: #### 3 040-3 #### MELISSA WHITEHEAD ([id number]) [facility] ([facility]) [address] [place] [address] 51076 Neutrophils (Bld) [#/Vol] 4.29 x10*3/uL Normal 1.20-7.70 [facility] Comment on above: Result Comment: Perc ent differential counts (%) should be interpreted in the context of the absolute cell counts (cells/uL). Performed By: #### 3 040-3 #### MELISSA WHITEHEAD ([id number]) [facility] ([facility]) [address] [place] [address] 93932 Neutrophils/100 WBC (Bld) 66.4 % Normal 40.0-80.0 [facility] Comment on above: Performed By: #### 3 040-3 #### MELISSA WHITEHEAD ([id number]) [facility] ([facility]) [address] [place] [address] 80265 Nucleated RBC/100 WBC (Bld) [Ratio] 0.0 /100 WBCs Normal 0.0-0.0 [facility] Comment on above: Performed By: #### 3 040-3 #### MELISSA WHITEHEAD ([id number]) [facility] ([facility]) [address] [place] [address] 54488 Platelets (Bld) [#/Vol] 182 x10*3/uL Normal 150-450 [facility] Comment on above: Performed By: #### 3 040-3 #### MELISSA WHITEHEAD ([id number]) [facility] ([facility]) [address] [place] [address] 68613 RBC (Bld) [#/Vol] 4.60 x10*6/uL Normal 4.00-5.20 [facility] Comment on above: Performed By: #### 3 040-3 #### MELISSA WHITEHEAD ([id number]) [facility] ([facility]) [address] [place] [address] 95918 WBC (Bld) [#/Vol] 6.5 x10*3/uL Normal 4.4-11.3 [facility] Comment on above: Performed By: #### 3 040-3 #### MELISSA WHITEHEAD ([id number]) [facility] ([facility]) [address] [place] [address] Choriogonadotropin.beta subu niton 02-18-2024 [place] [address] m[IU]/mL High <5 [facility] Comment on above: Order Comment: Venip uncture immediately after or during the administration of Metamizole may lead to falsely low results. Testing should be performed immediately prior to Metamizole dosing. Result Comment: Low- level positive HCG results can be seen in early , in sarah- or post-menopausal females due to normal pituitary HCG production, or with analytic interference. Repeat testing in 48-72 hours can aid in assessing for as results should double in this time period. FSH measurement is recommended in sarah- or post-menopausal females as concurrent elevation of FSH can support pituitary production as the source of the HCG elevation. Performed By: #### 3 040-3 #### MELISSA WHITEHEAD ([id number]) [facility] ([facility]) [address] [place] [address] 60502 Comprehensive metabolic 2000 panelon 02-18-2024 Albumin BCP dye [Mass/Vol] 4.3 g/dL 3.4 - 5.0 g/dL [facility] ALP [Catalytic activity/Vol] 48 U/L 33 - 110 U/L [facility] ALT With P-5'-P [Catalytic activity/Vol] 14 U/L 7 - 45 U/L [facility] Comment on above: Patients treated wit h Sulfasalazine may generate falsely decreased results for ALT. Anion gap [Moles/Vol] 11 mmol/L 10 - 20 mmol/L [facility] AST With P-5'-P [Catalytic activity/Vol] 14 U/L 9 - 39 U/L [facility] Bilirubin [Mass/Vol] 1 mg/dL 0.0 - 1.2 mg/dL [facility] Calcium [Mass/Vol] 8.8 mg/dL 8.6 - 10. 3 mg/dL [facility] Chloride [Moles/Vol] 104 mmol/L 98 - 107 mmol/L [facility] CO2 [Moles/Vol] 22 mmol/L 21 - 32 mmol/L [facility] Creatinine [Mass/Vol] 0.57 mg/dL 0.50 - 1.05 mg/dL [facility] eGFR - PINF [facility] Comment on above: Calculations of nick mated GFR are performed using the 2020 CKD-EPI Study Refit equation without the race variable for the IDMS-Traceable creatinine methods. https://jasn.asnjournals.org/content/early/ASN.2020 802465 Glucose [Mass/Vol] 64 mg/dL Low 74 - 99 mg/dL [facility] Interpretation and review of laboratory results Abnormal [facility] Potassium [Moles/Vol] 4.2 mmol/L 3.5 - 5.3 mmol/L [facility] Protein [Mass/Vol] 6.7 g/dL 6.4 - 8.2 g/dL [facility] Sodium [Moles/Vol] 133 mmol/L Low 136 - 145 mmol/L [facility] Urea nitrogen [Mass/Vol] 10 mg/dL 6 - 23 mg/dL [facility] Albumin BCP dye [Mass/Vol] 4.3 g/dL Normal 3.4-5.0 [facility] Comment on above: Performed By: #### 3 040-3 #### MELISSA WHITEHEAD ([id number]) [facility] ([facility]) [address] [place] [address] 46601 ALP [Catalytic activity/Vol] 48 U/L Normal 33-110 [facility] Comment on above: Performed By: #### 3 040-3 #### MELISSA WHITEHEAD ([id number]) [facility] ([facility]) [address] [place] [address] 30306 ALT With P-5'-P [Catalytic activity/Vol] 14 U/L Normal 7-45 [facility] Comment on above: Result Comment: Gema ents treated with Sulfasalazine may generate falsely decreased results for ALT. Performed By: #### 3 040-3 #### MELISSA WHITEHEAD ([id number]) [facility] ([facility]) [address] [place] [address] 29888 Anion gap [Moles/Vol] 11 mmol/L Normal 10-20 [facility] Comment on above: Performed By: #### 3 040-3 #### MELISSA WHITEHEAD ([id number]) [facility] ([facility]) [address] [place] [address] 26205 AST With P-5'-P [Catalytic activity/Vol] 14 U/L Normal 9-39 [facility] Comment on above: Performed By: #### 3 040-3 #### MELISSA WHITEHEAD ([id number]) [facility] ([facility]) [address] [place] [address] 11243 Bilirubin [Mass/Vol] 1.0 mg/dL Normal 0.0-1.2 [facility] Comment on above: Performed By: #### 3 040-3 #### MELISSA WHITEHEAD ([id number]) [facility] ([facility]) [address] [place] [address] 48884 Calcium [Mass/Vol] 8.8 mg/dL Normal 8.6-10.3 [facility] Comment on above: Performed By: #### 3 040-3 #### MELISSA WHITEHEAD ([id number]) [facility] ([facility]) [address] [place] [address] Chloride [Moles/Vol] 104 mmol/L Normal 98-107 [facility] Comment on above: Performed By: #### 3 040-3 #### MELISSA WHITEHEAD ([id number]) [facility] ([facility]) [address] [place] [address] CO2 [Moles/Vol] 22 mmol/L Normal 21-32 [facility] Comment on above: Performed By: #### 3 040-3 #### MELISSA WHITEHEAD ([id number]) [facility] ([facility]) [address] [place] [address] 23812 Creatinine [Mass/Vol] 0.57 mg/dL Normal 0.50-1.05 [facility] Comment on above: Performed By: #### 3 040-3 #### MELISSA WHITEHEAD ([id number]) [facility] ([facility]) [address] [place] [address] 15259 GFR/1.73 sq M.predicted MDRD (S/P/Bld) [Vol rate/Area] mL/min/{1.73_m2} Normal >60 [facility] Comment on above: Result Comment: Calc ulations of estimated GFR are performed using the 2020 CKD-EPI Study Refit equation without the race variable for the IDMS-Traceable creatinine methods. https://jasn.asnjournals.org/content/early/ASN.2020 487939 Performed By: #### 3 040-3 #### MELISSA WHITEHEAD ([id number]) [facility] ([facility]) [facility] [place] [address] Glucose [Mass/Vol] 64 mg/dL Low 74-99 [facility] Comment on above: Performed By: #### 3 040-3 #### MELISSA WHITEHEAD ([id number]) [facility] ([facility]) [facility] [place] [address] Potassium [Moles/Vol] 4.2 mmol/L Normal 3.5-5.3 [facility] Comment on above: Performed By: #### 3 040-3 #### MELISSA WIHTEHEAD ([id number]) [facility] ([facility]) [address] [place] [address] 49232 Protein [Mass/Vol] 6.7 g/dL Normal 6.4-8.2 [facility] Comment on above: Performed By: #### 3 040-3 #### MELISSA WHITEHEAD ([id number]) [facility] ([facility]) [address] [place] [address] 98584 Sodium [Moles/Vol] 133 mmol/L Low 136-145 [facility] Comment on above: Performed By: #### 3 040-3 #### MELISSA WHITEHEAD ([id number]) [facility] ([facility]) [address] [place] [address] 50256 Urea nitrogen [Mass/Vol] 10 mg/dL Normal 6-23 [facility] Comment on above: Performed By: #### 3 040-3 #### MELISSA WHITEHEAD ([id number]) [facility] ([facility]) [address] [place] [address] 31942 Glucose Test strip manual (B ld) [Mass/Vol]on 02-18-2024 Glucose [Mass/Vol] 168 mg/dL High 74 - 99 mg/dL [facility] Interpretation and review of laboratory results Abnormal [facility] Glucose [Mass/Vol] 168 mg/dL High 74-99 [facility] Comment on above: Performed By: #### 3 040-3 #### MELISSA WHITEHEAD ([id number]) [facility] ([facility]) [address] [place] [address] 71595 Glucose [Mass/Vol] 54 mg/dL Low 74 - 99 mg/dL [facility] Comment on above: Notified Interpretation and review of laboratory results Abnormal [facility] Glucose [Mass/Vol] 54 mg/dL Low 74-99 [facility] Comment on above: Result Comment: MD Maurice layne Performed By: #### 3 040-3 #### MELISSA WHITEHEAD ([id number]) [facility] ([facility]) [address] [place] [address] HCG ( test) IA.rapi d Ql (U)Ordered By: Keila Coburn on 02-18-2024 HCG ( test) Ql (U) Positive Abnormal NEGATIVE [facility] Interpretation and review of laboratory results Abnormal [facility] HCG ( test) IA.rapi d Ql (U)on 02-18-2024 HCG ( test) Ql (U) Positive Abnormal NEGATIVE [facility] Comment on above: Performed By: #### 3 040-3 #### TORRES VENTURA ([id number]) [facility] ([facility]) [facility] [place] [address] HCG.beta subunit Qnon 2024 Interpretation and review of laboratory results Abnormal [facility] Total HCG measurement is performed using the [employer] Access Immunoassay which detects intact HCG and free beta HCG subunit. This test is not indicated for use as a tumor marker. HCG testing is performed using a different test methodology at [facility] than other [facility]. Direct result comparison should only be made within the same method. [facility] No Panel Informationon 02-17 Interpretation and review of laboratory results Abnormal [facility] US PELVIS OB TRANSABDOMINAL W TRANSVAGINAL UP TO 1ST TRIMESTERon 02-18-2024 US PELVIS OB TRANSABDOMINAL W TRANSVAGINAL UP TO 1ST TRIMESTER Interpreted By: Samia Valencia, STUDY: US PELVIS OB TRANSABDOMINAL W TRANSVAGINAL UP TO 1ST TRIMESTER 02/18/2024 12:42 pm INDICATION: 23 y/o F with Signs/Symptoms:abd cramping. LMP 01/07/2024 EGA (by LMP) 6 w 0 d LUZ (by LMP) 10/13/2024 COMPARISON: None. ACCESSION NUMBER(S): [id number] ORDERING CLINICIAN: EUGENE MCCORMICK TECHNIQUE: Routine ultrasound of the pelvis was performed. Evaluation of the female pelvis was performed by transabdominal and subsequent transvaginal technique. static images were obtained for remote interpretation. FINDINGS: UTERUS AND GESTATIONAL SAC: The uterus is retroverted. There is an intrauterine gestational sac situated in the endometrial canal in the upper uterine body. There is a single living fetus with a crown-rump length of 0.5 cm which corresponds to a gestational age of 6 w 1 d. The heart rate is 110 BPM. There is a 1.0 x 0.7 x 0.4 cm subchorionic hemorrhage. There is a smooth round yolk sac measuring 2 mm. ADNEXA/OVARIES: No adnexal mass seen. RIGHT OVARY: The right ovary measures 4.0 x 3.2 x 2.7 cm. There is a 2.6 x 2.4 x 2.3 cm thick walled right ovarian corpus luteum with a ring of fire, benign.. LEFT OVARY: The left ovary measures 2.4 x 2.1 x 2.0 cm.. FREE FLUID: There is a small amount of simple free fluid in the cul de sac. IMPRESSION: 1. Single live intrauterine . 2. Estimated gestational age: 6 weeks 1 days. LUZ: 10/12/2024. 3. Small subchorionic hemorrhage. MACRO: None Signed by: Samia Valencia 02/18/2024 1:00 PM Dictation workstation: [id number] [facility] US Pelvis transvaginalon 1. Single live intrauterine . 2. Estimated gestational age: 6 weeks 1 days. LUZ: 10/12/2024. 3. Small subchorionic hemorrhage. MACRO: None Signed by: Samia Valencia 02/18/2024 1:00 PM Dictation workstation: [id number] MMODAL Interpreted By: Samia Valencia, STUDY: US PELVIS OB TRANSABDOMINAL W TRANSVAGINAL UP TO 1ST TRIMESTER 02/18/2024 12:42 pm INDICATION: 23 y/o F with Signs/Symptoms:abd cramping. LMP 01/07/2024 EGA (by LMP) 6 w 0 d LUZ (by LMP) 10/13/2024 COMPARISON: None. ACCESSION NUMBER(S): [id number] ORDERING CLINICIAN: EUGENE MCCORMICK TECHNIQUE: Routine ultrasound of the pelvis was performed. Evaluation of the female pelvis was performed by transabdominal and subsequent transvaginal technique. static images were obtained for remote interpretation. FINDINGS: UTERUS AND GESTATIONAL SAC: The uterus is retroverted. There is an intrauterine gestational sac situated in the endometrial canal in the upper uterine body. There is a single living fetus with a crown-rump length of 0.5 cm which corresponds to a gestational age of 6 w 1 d. The heart rate is 110 BPM. There is a 1.0 x 0.7 x 0.4 cm subchorionic hemorrhage. There is a smooth round yolk sac measuring 2 mm. ADNEXA/OVARIES: No adnexal mass seen. RIGHT OVARY: The right ovary measures 4.0 x 3.2 x 2.7 cm. There is a 2.6 x 2.4 x 2.3 cm thick walled right ovarian corpus luteum with a ring of fire, benign.. LEFT OVARY: The left ovary measures 2.4 x 2.1 x 2.0 cm.. FREE FLUID: There is a small amount of simple free fluid in the cul de sac. [facility] Samia Valencia MD - 02/18/2024 Interpreted By: Samia Valencia, STUDY: US PELVIS OB TRANSABDOMINAL W TRANSVAGINAL UP TO 1ST TRIMESTER 02/18/2024 12:42 pm INDICATION: 23 y/o F with Signs/Symptoms:abd cramping. LMP 01/07/2024 EGA (by LMP) 6 w 0 d LUZ (by LMP) 10/13/2024 COMPARISON: None. ACCESSION NUMBER(S): [id number] ORDERING CLINICIAN: EUGENE MCCORMICK TECHNIQUE: Routine ultrasound of the pelvis was performed. Evaluation of the female pelvis was performed by transabdominal and subsequent transvaginal technique. static images were obtained for remote interpretation. FINDINGS: UTERUS AND GESTATIONAL SAC: The uterus is retroverted. There is an intrauterine gestational sac situated in the endometrial canal in the upper uterine body. There is a single living fetus with a crown-rump length of 0.5 cm which corresponds to a gestational age of 6 w 1 d. The heart rate is 110 BPM. There is a 1.0 x 0.7 x 0.4 cm subchorionic hemorrhage. There is a smooth round yolk sac measuring 2 mm. ADNEXA/OVARIES: No adnexal mass seen. RIGHT OVARY: The right ovary measures 4.0 x 3.2 x 2.7 cm. There is a 2.6 x 2.4 x 2.3 cm thick walled right ovarian corpus luteum with a ring of fire, benign.. LEFT OVARY: The left ovary measures 2.4 x 2.1 x 2.0 cm.. FREE FLUID: There is a small amount of simple free fluid in the cul de sac. IMPRESSION: 1. Single live intrauterine . 2. Estimated gestational age: 6 weeks 1 days. LUZ: 10/12/2024. 3. Small subchorionic hemorrhage. MACRO: None Signed by: Samia Valencia 02/18/2024 1:00 PM Dictation workstation: [id number] [facility] Work Phone: Radiology Study observation (narrative) [facility] Work Phone: US Pelvis transvaginalOrdere d By: Samia Valencia on 02-18-2024 [facility] Work Phone: Urinalysis complete W Reflex Culture panel (U)on 02-18-2024 Appearance (U) Turbid Abnormal Clear [facility] Bilirubin (U) [Mass/Vol] Negative NEGATIVE [facility] Color (U) Yellow Light-Yellow, Yellow, Dark-Yellow [facility] Glucose Auto test strip (U) [Mass/Vol] Normal Normal mg/dL [facility] Ketones (U) [Mass/Vol] OVER (4+) Abnormal NEGATIVE mg/d L [facility] Leukocyte esterase Auto test strip Ql (U) 250 Dustin/uL Abnormal NEGATIVE [facility] Nitrite Auto test strip Ql (U) Negative NEGATIVE [facility] pH (U) 6 [pH] 5.0, 5.5, 6.0, 6.5, 7.0, 7.5, 8.0 [facility] Protein (U) [Mass/Vol] 50 (1+) Abnormal NEGAT UNRULY, 10 (TRACE), 20 (TRACE) mg/dL [facility] RBC (U) [#/Vol] Negative NEGATIVE [facility] Specific gravity (U) [Rel density] 1.030 1.005 - 1.035 [facility] Urobilinogen (U) [Mass/Vol] Normal Normal mg/dL [facility] OVER is reported when the result is greater than the clinically reportable range. [facility] Appearance (U) Turbid Normal [facility] Comment on above: Order Comment: Venip uncture immediately after or during the administration of Metamizole may lead to falsely low results. Testing should be performed immediately prior to Metamizole dosing. Performed By: #### 3 040-3 #### MELISSA WHITEHEAD ([id number]) [facility] ([facility]) [address] [place] [id number] Bilirubin (U) [Mass/Vol] Negative Normal NEGATIVE [facility] Comment on above: Order Comment: Venip uncture immediately after or during the administration of Metamizole may lead to falsely low results. Testing should be performed immediately prior to Metamizole dosing. Performed By: #### 3 040-3 #### MELISSA WHITEHEAD ([id number]) [facility] ([facility]) [address] [place] [phone] Color (U) Yellow Normal Light-Yellow, Yellow, Dark-Yellow [facility] Comment on above: Order Comment: Venip uncture immediately after or during the administration of Metamizole may lead to falsely low results. Testing should be performed immediately prior to Metamizole dosing. Performed By: #### 3 040-3 #### MELISSA WHITEHEAD ([id number]) [facility] ([facility]) [facility] [place] [address] Glucose Auto test strip (U) [Mass/Vol] Normal Normal Normal [facility] Comment on above: Order Comment: Venip uncture immediately after or during the administration of Metamizole may lead to falsely low results. Testing should be performed immediately prior to Metamizole dosing. Performed By: #### 3 040-3 #### MELISSA WHITEHEAD ([id number]) [facility] ([facility]) [address] [place] [phone] Ketones (U) [Mass/Vol] OVER (4+) [facility] Comment on above: Order Comment: Venip uncture immediately after or during the administration of Metamizole may lead to falsely low results. Testing should be performed immediately prior to Metamizole dosing. Performed By: #### 3 040-3 #### MELISSA WHITEHEAD ([id number]) [facility] ([facility]) [address] [place] [address] Leukocyte esterase Auto test strip Ql (U) 250 Dustin/uL Abnormal NEGATIVE [facility] Comment on above: Order Comment: Venip uncture immediately after or during the administration of Metamizole may lead to falsely low results. Testing should be performed immediately prior to Metamizole dosing. Performed By: #### 3 040-3 #### MELISSA WHITEHEAD ([id number]) [facility] ([facility]) [address] [place] [address] Nitrite Auto test strip Ql (U) Negative Normal NEGATIVE [facility] Comment on above: Order Comment: Venip uncture immediately after or during the administration of Metamizole may lead to falsely low results. Testing should be performed immediately prior to Metamizole dosing. Performed By: #### 3 040-3 #### MELISSA WHITEHEAD ([id number]) [facility] ([facility]) [address] [place] [address] pH (U) 6.0 [pH] Normal 5.0, 5.5, 6.0, 6.5, 7.0, 7.5, 8.0 [facility] Comment on above: Order Comment: Venip uncture immediately after or during the administration of Metamizole may lead to falsely low results. Testing should be performed immediately prior to Metamizole dosing. Performed By: #### 3 040-3 #### MELISSA WHITEHEAD ([id number]) [facility] ([facility]) [address] [place] [address] Protein (U) [Mass/Vol] 50 (1+) Abnormal NEGAT UNRULY, 10 (TRACE), 20 (TRACE) [facility] Comment on above: Order Comment: Venip uncture immediately after or during the administration of Metamizole may lead to falsely low results. Testing should be performed immediately prior to Metamizole dosing. Performed By: #### 3 040-3 #### MELISSA WHITEHEAD ([id number]) [facility] ([facility]) [address] [place] [address] RBC (U) [#/Vol] Negative Normal NEGATIVE [facility] Comment on above: Order Comment: Venip uncture immediately after or during the administration of Metamizole may lead to falsely low results. Testing should be performed immediately prior to Metamizole dosing. Performed By: #### 3 040-3 #### MELISSA WHITEHEAD ([id number]) [facility] ([facility]) [address] [place] [address] Specific gravity (U) [Rel density] 1.030 Normal 1.005-1.035 [facility] Comment on above: Order Comment: Venip uncture immediately after or during the administration of Metamizole may lead to falsely low results. Testing should be performed immediately prior to Metamizole dosing. Performed By: #### 3 040-3 #### MELISSA WHITEHEAD ([id number]) [facility] ([facility]) [address] [place] [address] Urobilinogen (U) [Mass/Vol] Normal Normal Normal [facility] Comment on above: Order Comment: Venip uncture immediately after or during the administration of Metamizole may lead to falsely low results. Testing should be performed immediately prior to Metamizole dosing. Performed By: #### 3 040-3 #### MELISSA WHITEHEAD ([id number]) [facility] ([facility]) [address] [place] [address] Urinalysis microscopic panel Auto Ql (U)on 02-18-2024 Bacteria Auto (Urine sed) [#/Area] 1+ Abnormal NONE SEEN /HPF [facility] Epithelial cells.squamous Auto (Urine sed) [#/Area] 10-25 (FEW) Reference range not established. /HPF [facility] Mucus Auto (Urine sed) [#/Area] 2+ Reference range not established. /LPF [facility] RBC Auto (Urine sed) [#/Area] 3-5 NONE, 1-2, 3-5 /HPF [facility] WBC Auto (Urine sed) [#/Area] >50 Abnormal 1-5, NONE /HPF [facility] Bacteria Auto (Urine sed) [#/Area] 1+ /HPF Abnormal NONE SEEN [facility] Comment on above: Performed By: #### 3 040-3 #### MELISSA WHITEHEAD ([id number]) [facility] ([facility]) [address] [place] [address] Epithelial cells.squamous Auto (Urine sed) [#/Area] 10-25 (FEW) Normal Reference range not established. [facility] Comment on above: Performed By: #### 3 040-3 #### MELISSA WHITEHEAD ([id number]) [facility] ([facility]) [address] [place] [address] Mucus Auto (Urine sed) [#/Area] 2+ /LPF Normal Reference range not established. [facility] Comment on above: Performed By: #### 3 040-3 #### MELISSA WHITEHEAD ([id number]) [facility] ([facility]) [address] [place] [address] RBC Auto (Urine sed) [#/Area] 3-5 Normal NONE, 1-2, 3-5 [facility] Comment on above: Performed By: #### 3 040-3 #### MELISSA WHITEHEAD ([id number]) [facility] ([facility]) [address] [place] [address] WBC Auto (Urine sed) [#/Area] >50 Abnormal 1-5, NONE [facility] Comment on above: Performed By: #### 3 040-3 #### MELISSA WHITEHEAD ([id number]) [facility] ([facility]) [address] [place] [address] hCG, quantitative, on 02-18-2024 [place]n [address] m[IU]/mL [facility] Comment on above: Low-level positive H CG results can be seen in early , in sarah- or post-menopausal females due to normal pituitary HCG production, or with analytic interference. Repeat testing in 48-72 hours can aid in assessing for as results should double in this time period. FSH measurement is recommended in sarah- or post-menopausal females as concurrent elevation of FSH can support pituitary production as the source of the HCG elevation. ECG 12-LEADon 01-27-2024 ECG 12-LEAD Ventricular Rate 68 Atrial Rate 68 P-R Interval 140 QRS Duration 84 Q-T Interval 388 QTC Calculation(Bazett) 412 P [place] 33 R [place] 86 T [place] 48 QRS Count 11 Q Onset 222 P Onset 152 P Offset 195 T Offset 416 QTC Fredericia 404 Diagnosis Normal sinus rhythm Normal ECG When compared with ECG of 03-OCT-2023 06:45, No significant change was found Confirmed by Ramiro Hugo ([id number]) on 02/02/2024 6:20:23 PM Normal [facility] CNOVon 12-26-2023 CNOV Office Visit (AGFAMPLE) KEAGAN ALICIA ([id number]) 4 F Date Time Provider Department 12/26/23 10:00 AM RACHELL AMADOR During your visit today, we recorded the following information about you: Temperature Pulse Respiration Blood pressure 98 degrees 52/minute 16/minute 122/62 Weight Height 56.2 kg 1.6 m Rachell Amador APRN.CNP 12/26/2023 11:34 [place] [address] Date of Evaluation: 12/26/2023 Patient Name: Keagan Alicia : 2000 Keagan Aliica is a 23 year old female who presents for wellness exam. I reviewed past medical, surgical, social, and family histories today and updated chart. Allergies, chronic medications, and supplements were also reviewed. PMH of SVT, PE, anxiety, and depression. She developed a PE after cholecystectomy in June. She was started on Eliquis (for total of 3 months). She then developed SVT which ultimately required an ablation in September. She reports she still has palpitations and had an episode a few weeks ago where her heart was racing for a few minutes. She will still get lightheaded on occasion. She is currently on Metoprolol 12.5 mg BID. This makes her fatigued. She also developed heavy uterine bleeding while on the Eliquis and had an IUD placed in June. She then had her IUD removed in August due to it being malpositioned and causing pain. She is not currently on control. Exercise: Patient does not have an exercise routine. 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 Weight Trend: Last 2 Encounter Wt Readings: Date: Wt: 12/26/2023 56.2 kg (124 lb) 11/24/2023 54.4 kg (120 lb) Eating Habits: Patient does maintain healthy eating habits. Types of food appropriate diet Caffeine- Rare sweet tea use Drinks mostly water all day Tobacco Use: Vaping nicotine 5% Alcohol Use: On occasion She is no longer smoking marijuana Active Problem List/Chronic Problems There are no active hospital problems to display for this patient. Health Maintenance Cervical Cancer Screening Never done- Will schedule with gynecology Review of Systems Constitutional: Positive for fatigue (on BB). Negative for appetite change, chills, diaphoresis, fever and unexpected weight change. HENT: Positive for congestion, ear pain, rhinorrhea and sore throat. Negative for sinus pressure and sinus pain. Eyes: Negative. Respiratory: Positive for shortness of breath (with exertion). Negative for cough, chest tightness and wheezing. Cardiovascular: Positive for palpitations. Negative for chest pain and leg swelling. Gastrointestinal: Negative for abdominal pain, constipation, diarrhea, nausea and vomiting. Endocrine: Negative. Genitourinary: Negative for dysuria, frequency, menstrual problem and urgency. Musculoskeletal: Negative for arthralgias, back pain, gait problem and joint swelling. Skin: Negative. Allergic/Immunologic : Negative. Neurological: Positive for dizziness and light-headedness. Negative for tremors, seizures, syncope, weakness and headaches. Hematological: Negative. Psychiatric/Behavior al: Negative. PAIN: Negative for pain, history of chronic pain, or current treatment for a chronic pain condition. ALLERGIES Allergen Reactions Latex Itching colestipol (COLESTID) 1 gram tablet Take 1 tablet by mouth two times a day. ondansetron (ZOFRAN) 4 mg tablet Take 1 tablet by mouth every 6 hours as needed for nausea/vomiting. metoprolol tartrate, short acting, (LOPRESSOR) 25 mg tablet Take 0.5 tablets by mouth two times a day. PAST MEDICAL HISTORY Diagnosis Date Anemia Chronic tonsillitis Depression 10/08/2016 Gall stone 07/2022 cholecystectomy after delivery GERD (gastroesophageal reflux disease) Hemorrhoids History of back problems Kidney stones Paroxysmal SVT (supraventricular tachycardia) (HCC) Postoperative pulmonary embolism (HCC) 06/2023 Psychiatric disorder depression, anxiety and PTSD PAST SURGICAL HISTORY Procedure Laterality Date CHOLECYSTECTOMY HX 06/17/2023 [facility] IUD REMOVAL 09/15/2023 [facility] 10/03/2023 TONSILLECTOMY HX FAMILY HISTORY Problem Relation Age of Onset other (migraines) Mother None Father Ovarian cancer Maternal Grandmother Anesthesia Problems No Family History Last 3 Encounter BP Readings: Date: BP: 12/26/2023 122/62 11/24/2023 118/64 09/29/2023 100/62 BP 122/62 Pulse 52 Temp 98 Resp 16 Ht 5' 3 (1.60m) Wt 124 lb (56.2kg) SpO2 100% LMP 11/18/2023 BMI 21.97 kg/(m2). Physical Exam Vitals and nursing note reviewed. Constitutional: Appearance: Normal appearance. She is not ill-appearing. HENT: Head: Normocephalic. Right Ear: Tympanic membrane, ear canal and external ear normal. Left Ear: Tympa (more content not included)... Normal [facility] BACTERIAL VAGINOSIS NAATon 1 Lactobacillus crispatus+gasseri+jense mendoza + Gardnerella vaginalis + Atopobium vaginae rRNA SHYAM+probe Ql (Vag fld) Negative Normal Negative for bacterial vaginosis [facility] Comment on above: Order Comment: Speci men Type: BLOOD SPECIMEN Ordering Facility: [facility] Address: [address] [place] [address] Performed By: #### 2 4321-2 #### [facility] CLIA [id number] [address] [place], [place] [id number] [place] C. trachomatis+N. gonorrhoea e DNA SHYAM+probe Ql (Unsp spec)on 11-24-2023 C. trachomatis rRNA SHYAM+probe Ql (Unsp spec) Negative Normal Negative for Chlamydia trachomatis by amplificaton [facility] Comment on above: Order Comment: Speci men Type: SWABOrdering Facility: [facility] Address: [address] [place] [address] Performed By: #### 3 6902-5 ####[facility] LABCLIA [id number] [place] [address] [place] N. gonorrhoeae rRNA SHYAM+probe Ql (Unsp spec) Negative Normal Negative for Neisseria gonorrhoeae by amplification [facility] Comment on above: Order Comment: Speci men Type: SWABOrdering Facility: [facility] Address: [address] [place] [address] Performed By: #### 3 6902-5 ####[facility] LABCLIA [id number] [place] [address] [place] ALMITA/TRICHOMONAS NAATon 1 C. glabrata RNA SHYAM+probe Ql (Vag fld) Negative Normal Negative for Almita glabrata [facility] Comment on above: Order Comment: Speci men Type: BLOOD SPECIMEN Ordering Facility: [facility] Address: [address] [place] [address] Performed By: #### 2 4321-2 #### [facility] CLIA [id number] [address] [place] [address] [place] Almita sp DNA SHYAM+probe Ql (Vag fld) Negative Normal Negative for Almita species [facility] Comment on above: Order Comment: Speci men Type: BLOOD SPECIMEN Ordering Facility: [facility] Address: [address] [place] [address] Performed By: #### 2 4321-2 #### [facility] CLIA [id number] [address] [place] [address] [place] T. vaginalis DNA SHYAM+probe Ql (Unsp spec) Negative Normal Negative for Trichomonas vaginalis by amplification [facility] Comment on above: Order Comment: Speci men Type: BLOOD SPECIMEN Ordering Facility: [facility] Address: [facility] [place] [id number] Performed By: #### 2 4321-2 #### [facility] ASHLY [id number] [address] [place] [address] [place] CNOVon 11-24-2023 CNOV Office Visit (OBGYWM) KEAGAN ALICIA ([id number]) 4 F Date Time Provider Department 11/24/23 12:45 PM SANDRA COLE OBGYWM During your visit today, we recorded the following information about you: Blood pressure Weight Last Period 118/64 54.4 kg 11/18/23 Sandra Cole APRN.DOCTOR ASSISTANT 11/24/2023 1:09 PM Signed Patient declined quality head. Keagan Alicia is a 23 year old female who presents for problem visit vaginal discharge, odor for 2 month(s). HPI: pt states that she has had thicker white discharge w/ odor and some burning off/on over the past 2 months. She tried OTC yeast treatment with no resolve. OB History T1 L2 SAB3 IAB0 Ectopic0 Multiple0 Live Births2 Comment: No DANDCs for missed abs Compensation Expert History LMP: 09/15/2023 (Exact Date), Having periods Age at Menarche: Age at First : Age at Menopause: Compensation Expert History Comments: Sexual Activity: Yes; Male Contraception: Pill PAST MEDICAL HISTORY Diagnosis Date Anemia Chronic tonsillitis Depression 10/08/2016 Gall stone 07/2022 cholecystectomy after delivery GERD (gastroesophageal reflux disease) Hemorrhoids History of back problems Kidney stones Paroxysmal SVT (supraventricular tachycardia) (HCC) Postoperative pulmonary embolism (HCC) 06/2023 Psychiatric disorder depression, anxiety and PTSD PAST SURGICAL HISTORY Procedure Laterality Date CHOLECYSTECTOMY HX 06/17/2023 [facility] IUD REMOVAL 09/15/2023 TONSILLECTOMY HX FAMILY HISTORY Problem Relation Age of Onset other (migraines) Mother None Father Ovarian cancer Maternal Grandmother Anesthesia Problems No Family History Social History Tobacco Use Smoking status: Never Passive exposure: Yes Smokeless tobacco: Never Tobacco comments: Vapes Vaping Use Vaping status: current everyday user Substances: Nicotine, Flavoring Devices: Disposable Substance Use Topics Alcohol use: Not Currently Drug use: Yes Frequency: 2.0 times per week Types: Marijuana Comment: smoking Current Outpatient Medications Medication Sig colestipol (COLESTID) 1 gram tablet Take 1 tablet by mouth two times a day. norethindrone (AYGESTIN) 5 mg tablet TAKE 1 TABLET BY MOUTH EVERY DAY metoprolol tartrate, short acting, (LOPRESSOR) 25 mg tablet take 1 tablet by mouth twice a day as needed (Patient not taking: Reported on 09/29/2023) mirtazapine (REMERON) 15 mg tablet TAKE 1 TABLET BY MOUTH EVERYDAY AT BEDTIME gabapentin (NEURONTIN) 300 mg capsule take one tablet po bid and 2 tablets po qhs ondansetron (ZOFRAN) 4 mg tablet Take 1 tablet by mouth every 6 hours as needed for nausea/vomiting. No current facility-administere d medications for this visit. Allergies As of Date: 11/24/2023 Allergen Noted Reaction LATEX 07/02/2023 Itching Fully Assessed 09/29/2023 REVIEW OF SYSTEMS Bladder: No dysuria, gross hematuria, urinary frequency, urinary urgency, or incontinence. Expanded ROS: N/A Allergies and current medication updated:Yes SENSITIVE EXAM: The sensitive examination was discussed with the Patient or Patient's Authorized Class B Truck Driver. As applicable, any other physician, advance practice provider, medical student, or other health professional student that will be observing or involved in the sensitive examination for educational or training purposes was discussed with the Patient or Authorized Class B Truck Driver. The Patient or Authorized Class B Truck Driver has agreed to proceed with the sensitive examination. (Sensitive examination includes inspection and/or palpation of the breasts, pelvis, prostate and anorectal regions). EXAM: LMP 09/15/2023 GENERAL: pleasant, female in no apparent distress HEENT: Normocephalic, atraumatic, mucus membranes moist, and no lesions CHEST: Normal inspiratory effort ABDOMEN: soft, non-tender, and no masses PELVIC: external genitalia normal, normal Bartholin's glands, urethra, [place]'s glands, no vulvar lesions, no cervical lesions, good vaginal support, physiologic discharge present, normal appearing perineal body and perianal region BIMANUAL: deferred NEURO: alert and oriented x3,exam grossly non-focal EXTREMITIES: normal ASSESSMENT/PLAN: 1. Vaginal discharge - ICD9: 623.5, ICD10: N89.8 Will notify patient of test results. - ALMITA/TRICHOMONAS NAAT - BACTERIAL VAGINOSIS NAAT - GONORRHEA/CHLAMYDIA NAAT If results are negative recommend vaginal pH shirt operator. Sandra Cole APRN.CNP Medical Decision Making: Problems: Moderate: New problem with uncertain prognosis Data: Unique test(s) ordered: 3+ Risk: Low: Low risk from testing/treatment Medical Decision Making Level: 4 - Moderate Allergies As of Date: 11/24/2023 Noted Allergy Reaction LATEX 07/02/2023 9 - Itching Date Reviewed: 09/29/2023 Reviewed by: Seema Bowman RN - Fully Assessed Reason for Visit: (more content not included)... Normal [facility] HISTORY PHYSICALon HISTORY PHYSICAL HNO ID: [id number] Author: FAIZA MISHRA APRN.ULISSES Service: ? Author Type: Nurse Practitioner Type: H&P Filed: 10/16/2023 07:18 Note Text: DISTANCE HEALTH VISIT This Team Access Model visit is a virtual encounter. It required patient-provider interaction for the medical decision making as documented below. REASON FOR VISIT: diarrhea HPI: Keagan Alicia is a 23 year old female who presents for diarrhea. She admits to having diarrhea since her cholecystectomy in June. She endorses 3 BMs daily, worse after meals. She was prescribed questran powder but states that she can not tolerate it. Patient denies heartburn, regurgitation, dysphagia, early satiety, nausea, vomiting, abdominal pain, changes in appetite, unintentional weight loss, melena, hematochezia or hematemesis. Past Clinical Work-Up: NO RECENT PROCEDURES EXTERNAL CTAP W IVCON 06/24/2023 Impression Postsurgical changes of recent cholecystectomy. No fluid collection in the surgical bed. No evidence of acute abdominal or pelvic abnormality. CTAP W IVCON 06/22/2023 IMPRESSION: No evidence of an acute intra-abdominal or pelvic process EXTERNAL CTAP W IVCON 06/19/2023 Impression 1. Diffuse infectious colitis from the cecum to rectum most pronounced within the ascending and proximal transverse colon. 2. Moderate amount of free fluid in the dependent pelvic recesses measuring upper limits of normal for simple vs complicated, associated with mild thin peritoneal enhancement, features suggesting an inflammatory component; therefore, the possibility of peritonitis is raised. 3. Trace serosanguineous fluid in the gallbladder fossa without loculation. 4. Small volume pneumoperitoneum, likely relating to recent postoperative status. LABS BASIC METABOLIC PANEL Order: [id number] Component Ref Range AND Units 2 wk ago Glucose 74 - 99 mg/dL 84 Sodium 136 - 145 mmol/L 137 Potassium 3.5 - 5.3 mmol/L 4.2 Chloride 98 - 107 mmol/L 104 Bicarbonate 21 - 32 mmol/L 26 Anion Gap 10 - 20 mmol/L 11 Urea Nitrogen 6 - 23 mg/dL 14 Creatinine 0.50 - 1.05 mg/dL 0.68 eGFR >60 mL/min/1.73m*2 >90 Comment: Calculations of estimated GFR are performed using the 2020 CKD-EPI Study Refit equation without the race variable for the IDMS-Traceable creatinine methods. [email or web address]://jasn.asnjour nals.org/content/ear ly//[email or web address] Calcium 8.6 - 10.3 mg/dL 9.2 ntains abnormal data COMPLETE BLOOD COUNT Order: [id number] Component Ref Range AND Units 2 wk ago WBC 4.4 - 11.3 x10*3/uL 6.9 nRBC 0.0 - 0.0 /100 WBCs 0.0 RBC 4.00 - 5.20 x10*6/uL 4.65 Hemoglobin 12.0 - 16.0 g/dL 12.9 Hematocrit 36.0 - 46.0 % 41.6 MCV 80 - 100 fL 90 MCH 26.0 - 34.0 pg 27.7 MCHC 32.0 - 36.0 g/dL 31.0 Low RDW 11.5 - 14.5 % 13.2 Platelets 150 - 450 x10*3/uL 240 Latest Ref Rng 09/01/2023 09/18/2023 WBC 3.70 - 11.00 k/uL 3.55 (L) 4.15 RBC 3.90 - 5.20 m/uL 4.77 4.77 Hemoglobin 11.5 - 15.5 g/dL 13.5 13.5 Hematocrit 36.0 - 46.0 % 41.6 41.3 MCV 80.0 - 100.0 fL 87.2 86.6 MCH 26.0 - 34.0 pg 28.3 28.3 MCHC 30.5 - 36.0 g/dL 32.5 32.7 RDW-CV 11.5 - 15.0 % 13.6 13.3 Platelet Count 150 - 400 k/uL 181 188 MPV 9.0 - 12.7 fL 11.9 11.9 Neut% % 46.7 Abs Neut (ANC) 1.45 - 7.50 k/uL 1.66 Lymph% % 41.7 Abs Lymph 1.00 - 4.00 k/uL 1.48 [place]% % 10.7 Abs [place] <0.87 k/uL 0.38 Eosin% % 0.3 Abs Eosin <0.46 k/uL <0.03 Baso% % 0.6 Abs Baso <0.11 k/uL <0.03 Immature Gran % % 0.0 IMMATURE GRANS (ABS) <0.10 k/uL <0.03 NRBC /100 WBC 0.0 Absolute nRBC <0.01 k/uL <0.01 <0.01 DTYPE Auto Glucose 74 - 99 mg/dL 92 BUN 7 - 21 mg/dL 9 Creatinine 0.58 - 0.96 mg/dL 0.75 Sodium 136 - 144 mmol/L 137 Potassium 3.7 - 5.1 mmol/L 4.4 Chloride 98 - 107 mmol/L 104 CO2 22 - 30 mmol/L 25 Anion Gap 8 - 15 mmol/L 8 Calcium 8.5 - 10.2 mg/dL 8.8 eGFR >=60 mL/min/1.73m? 117 Legend: (L) Low ALLERGIES Allergen Reactions Latex Itching PAST MEDICAL HISTORY No date: Anemia No date: Chronic tonsillitis 10/08/2016: Depression 07/2022: Gall stone Comment: cholecystectomy after delivery No date: GERD (gastroesophageal reflux disease) No date: Hemorrhoids No date: History of back problems No date: Kidney stones No date: Paroxysmal SVT (supraventricular tachycardia) (HCC) 06/2023: Postoperative pulmonary embolism (HCC) No date: Psychiatric disorder Comment: depression, anxiety and PTSD PAST SURGICAL HISTORY 06/17/2023: CHOLECYSTECTOMY HX Comment: [facility] 09/15/2023: IUD REMOVAL No date: TONSILLECTOMY HX FAMILY HISTORY Problem Relation Age of Onset other (migraines) Mother None Father Ovarian cancer Maternal Grandmother Anesthesia Problems No Family History Social History Tobacco Use Smoking status: Never Passive exposure: Yes Smokeless tobacco: Never Tobacco comments: Vapes Vaping Use Vaping status: current everyday user Substances: Nicotine, Flavor (more content not included)... Normal [facility] ECG 12 lead Aysha 4 Atrial Rate [address] [facility] Work Phone: P [place] [address] [facility] Work Phone: [phone] P Offset [address] [facility] Work Phone: [phone] P Onset [address] [facility] Work Phone: [phone] DC Interval [address] [facility] Work Phone: [phone] Q Onset [address] [facility] Work Phone: [phone] QRS Count [address] [facility] Work Phone: [phone] QRS Duration [address] [facility] Work Phone: QT Interval [address] [facility] Work Phone: [phone] QTC Calculation(Bazett) 420 ms [facility] Work Phone: [phone] QTC [place] [address] [facility] Work Phone: [phone] R [place] [address] [facility] Work Phone: T [place] [address] [facility] Work Phone: [phone] T Offset [address] [facility] Work Phone: Ventricular Rate 69 BPM [facility] Work Phone: Normal sinus rhythm Normal ECG When compared with ECG of 21-JUN-2023 08:13, Nonspecific T wave abnormality no longer evident in Inferior leads Confirmed by Ramiro Hugo ([id number]) on 10/03/2023 2:39:06 PM MUSE Ramiro Hugo MD - 10/03/2023 Normal sinus rhythm Normal ECG When compared with ECG of 21-JUN-2023 08:13, Nonspecific T wave abnormality no longer evident in Inferior leads Confirmed by Ramiro Hugo ([id number]) on 10/03/2023 2:39:[address] [facility] Work Phone: [facility] Work Phone: ECG 12-LEADon 10-03-2023 ECG 12-LEAD Ventricular Rate 69 Atrial Rate 69 P-R Interval 134 QRS Duration 82 Q-T Interval 392 QTC Calculation(Bazett) 420 P [place] 44 R [place] 87 T [place] 52 QRS Count 11 Q Onset 220 P Onset 153 P Offset 190 T Offset 416 QTC Fredericia 410 Diagnosis Normal sinus rhythm Normal ECG When compared with ECG of 21-JUN-2023 08:13, Nonspecific T wave abnormality no longer evident in Inferior leads Confirmed by Ramiro Hugo ([id number]) on 10/03/2023 2:39:06 PM Normal [facility] Electrophysiology studyon Table formatting from the original result was not included. Supraventricular tachycardia ablation Procedures SVT Ablation (27165), Induction Post IV Drug Infusion (11012), 3D Mapping (87244), Ultrasound Guided vascular access (66016) Patient history: Please refer to the detailed history and physical on the patient's medical chart. Procedure narrative: The patient was in the fasting state. A baseline ECG was recorded and showed Sinus rhythm. The patient was set up for continuous monitoring of surface 12 lead ECG and pulse oximetry. Blood pressure was monitored with automatic cuff measurements. Bilateral groins were clipped, prepped with chlorhexidine, and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 murmurs or gallops IMPRESSION: 22yo with IUD in abdominal/pelvic cavity. PLAN: Diagnostic laparoscopy with removal of IUD Pt has been counseled on risks/benefits and alternatives of surgery including but not limited to anesthesia, bleeding, infection, injury to pelvic structures including bowel, bladder, ureters and vessels. Pt wishes to proceed with surgery at this time. Lovenox pre op. Cardiac clearance was given preop. Off Eliquis Pre and Post op instructions reviewed. I have reviewed and updated past medical and surgical history, medications and allergies Mary Jo Barnett MD Allergies As of Date: 09/12/2023 Noted Allergy Reaction LATEX 07/02/2023 9 - Itching Date Reviewed: 09/12/2023 Reviewed by: Alyx Cordero MA - Fully Assessed Reason for Visit: Pre-Op Exam [87] Primary Visit Diagnosis:Malpositio simin intrauterine device (IUD), sequela [T83.32XS] Other Visit Diagnosis:Pre-op exam [Z01.818] Order(s):fluconazole (DIFLUCAN) 150 mg tabletTake 1 tablet by mouth one time only for 1 dose.Disp: 1 tabletRfl: 0 Prescriptions as of 09/12/2023 - fluconazole (DIFLUCAN) 150 mg tablet Take 1 tablet by mouth one time only for 1 dose. - norethindrone (AYGESTIN) 5 mg tablet TAKE 1 TABLET BY MOUTH EVERY DAY - apixaban (ELIQUIS) 5 mg tab(s) Take by mouth two times a day. - metoprolol tartrate, short acting, (LOPRESSOR) 25 mg tablet take 1 tablet by mouth twice a day as needed - mirtazapine (REMERON) 15 mg tablet TAKE 1 TABLET BY MOUTH EVERYDAY AT BEDTIME - lamoTRIgine (LAMICTAL) 25 mg tablet TAKE ONE TABLET DAILY FOR 2 WEEKS THEN TWO TABLETS DAILY F (more content not included)... Normal [facility] HISTORY PHYSICALon HISTORY PHYSICAL HNO ID: [id number] Author: MARY JO CHANCE MD Service: ? Author Type: Physician Type: H&P Filed: 09/12/2023 12:39 Note Text: Pre-Op History and Physical HPI: The patient is a 22 year old female presenting for pre-operative visit. She is scheduled for Diagnostic Laparoscopy removal of perforated IUD, for Perforated IUD on 09/15/23. Procedure discussed along with risks, benefits and complications. Other alternatives discussed for management. Consent form signed? Yes. PAST MEDICAL HISTORY No date: Anemia No date: Chronic tonsillitis 10/08/2016: Depression 07/2022: Gall stone Comment: cholecystectomy after delivery No date: Paroxysmal SVT (supraventricular tachycardia) (HCC) 06/2023: Postoperative pulmonary embolism (HCC) No date: Psychiatric disorder Comment: depression, anxiety and PTSD PAST SURGICAL HISTORY 06/17/2023: CHOLECYSTECTOMY HX Comment: [facility] No date: TONSILLECTOMY HX Current Outpatient Medications Medication Sig Dispense Refill norethindrone (AYGESTIN) 5 mg tablet TAKE 1 TABLET BY MOUTH EVERY DAY 90 tablet 3 metoprolol tartrate, short acting, (LOPRESSOR) 25 mg tablet take 1 tablet by mouth twice a day as needed 180 tablet 1 mirtazapine (REMERON) 15 mg tablet TAKE 1 TABLET BY MOUTH EVERYDAY AT BEDTIME 90 tablet 1 lamoTRIgine (LAMICTAL) 25 mg tablet TAKE ONE TABLET DAILY FOR 2 WEEKS THEN TWO TABLETS DAILY FOR 2 WEEKS THEN TAKE THE 100 MG BY MOUTH DAILY 180 tablet 1 gabapentin (NEURONTIN) 300 mg capsule take one tablet po bid and 2 tablets po qhs 90 capsule 0 ondansetron (ZOFRAN) 4 mg tablet Take 1 tablet by mouth every 6 hours as needed for nausea/vomiting. 120 tablet 1 fluconazole (DIFLUCAN) 150 mg tablet Take 1 tablet by mouth one time only for 1 dose. 1 tablet 0 apixaban (ELIQUIS) 5 mg tab(s) Take by mouth two times a day. (Patient not taking: Reported on 09/12/2023) No current facility-administere d medications for this visit. ALLERGIES: Latex PERSONAL HISTORY: Social History Tobacco Use Smoking status: Never Passive exposure: Yes Smokeless tobacco: Never Tobacco comments: Vapes Vaping Use Vaping Use: current everyday user Substances: Nicotine Substance Use Topics Alcohol use: No Drug use: Yes Frequency: 2.0 times per week Types: Marijuana Comment: smoking FAMILY HISTORY: FAMILY HISTORY Problem Relation Age of Onset other (migraines) Mother None Father Ovarian cancer Maternal Grandmother Anesthesia Problems No Family History REVIEW OF SYMPTOMS: negative except as noted above PHYSICAL EXAMINATION: VITALS: Blood pressure 100/60, pulse 73, height 160 cm (5' 3), weight 52.2 kg (115 lb), last menstrual period 07/14/2023, SpO2 98%, not currently . GENERAL: The patient is well nourished, well hydrated in no acute distress. , The patient is oriented to time, place, and person. NECK: full range of motion LUNGS: Clear to auscultation bilaterally. no wheezes, rhonchi or rales HEART: Regular rate and rhythm, Normal heart sounds, and No murmurs or gallops IMPRESSION: 22yo with IUD in abdominal/pelvic cavity. PLAN: Diagnostic laparoscopy with removal of IUD Pt has been counseled on risks/benefits and alternatives of surgery including but not limited to anesthesia, bleeding, infection, injury to pelvic structures including bowel, bladder, ureters and vessels. Pt wishes to proceed with surgery at this time. Lovenox pre op. Cardiac clearance was given preop. Off Eliquis Pre and Post op instructions reviewed. I have reviewed and updated past medical and surgical history, medications and allergies Mary Jo Barnett MD [facility] 09-02-2023 EDVIN Telephone (PREANME) KEAGAN ALICIA ([id number]) 4 F Date Time Provider Department 09/02/23 JOYCE MISHRA During your visit today, we recorded the following information about you: Joyce Mishra PA-C 09/02/2023 10:29 AM Signed Good morning Dr. Louann Barnett, This is in regards to our mutual patient, Ms. Keagan Alicia who was seen at my office on 09/01/23. The patient is scheduled for diagnostic laparoscopy with IUD removal on 09/15/23. Pt has a complex PMH that includes recent postoperative pulmonary embolism diagnosed on 06/21/23, currently on Eliquis BID, and daily episodes of paroxymal SVT. She is following with electrophysiology at , Dr. Hugo, and she is scheduled to have an SVT ablation on 10/03/23. Given her complex hx, I reviewed her chart with staff anesthesiologist, Dr. Coker. Dr. Coker has concerns regarding patient's daily SVT as this may cause problems in the OR, as well as her recent PE since she has not yet completed 3 months of anticoagulation. Can surgery be postponed until after pt's upcoming SVT ablation at (scheduled 10/03/23)? Thank you, Joyce Mishra PA-C PACC Yamila Ballard MD 09/02/2023 1:36 PM Signed Responding as Dr. Barnett is out this week. Please notify patient that non emergent surgery needs will need to wait until after her ablation for SVT scheduled in September due to concerns w/ this and recent PE. Dr. Barnett can look at surgery reschedule dates when she returns. MD Benitez Echevarria Jennifer, KELLI 09/02/2023 2:05 PM Signed Left message for patient to call office. KELLI Barrios Jennifer, RN 09/03/2023 11:19 AM Signed 2nd message left for patient to call the office. Surgery sheet given back to bird tender to cancel. ChantelleKELLI Coon Jennifer, RN 09/05/2023 1:10 PM Signed Patient called the office back after viewing [employer] message. States she never received any voicemail messages from our office. Confirmed that we had the correct phone number on file. Patient voiced her frustration. States her Outsole Cutter Machine never stated that she would need to post pone this surgery with DM. Advised that DM would return to the office next week to look at next available dates. Patient states she might look for another doctor to remove the IUD. Stated that we screwed it up once, what's keeping you guys from screwing it up again. KELLI Barrios Amanda, PA-C 09/08/2023 10:16 AM Signed Good morning, I re-reviewed patient's chart with staff anesthesiologist, Dr. Coker, in light of patient's recent appointment with her liquid sugar fortifier Dr. Fernando Noriega on 09/03/23 (AANDP included below). Pt is OK to proceed with surgery prior to SVT ablation per Dr. Coker. Please let me know if you have any questions or concerns. Thank you, Joyce Mishra PA-C Assessment/Plan #Incidental low risk subsegmental pulmonary embolism -Pulmonary embolism in the setting of acute illness with cholecystitis and surgery on 06/2023, in the background of a history of smoking. Likely provoked event?. No DVT on ultrasound -She is planned for surgery to remove extrauterine IUD. -Okay to stop anticoagulation once she completes 3 months of therapy which would be by the end of August -After this recommend she does hypercoagulable testing that has been ordered by hematology. Will also add APLA testing. Continue follow-up with hematology -Echocardiogram done at [facility] showed normal LV and RV function with no valvular abnormalities -For her planned surgery if she stays as inpatient recommend for her to wear SCDs at all times and to use prophylactic subcutaneous heparin. Also discussed early mobilization to prevent VTE # SVT -Follow-up with electrophysiology for outpatient SVT ablation Norbert Feranndes MD [facility] Interventional Cardiology Endovascular Interventions [email or web address] Allergies As of Date: 09/02/2023 Noted Allergy Reaction LATEX 07/02/2023 9 - Itching Date Reviewed: 09/01/2023 Reviewed by: Joyce Mishra PA-C - Fully Assessed Reason for Visit: Preparations For Surgery [898] Prescriptions as of 09/11/2023 - norethindrone (AYGESTIN) 5 mg tablet TAKE 1 TABLET BY MOUTH EVERY DAY - apixaban (ELIQUIS) 5 mg tab(s) Take by mouth two times a day. - metoprolol tartrate, short acting, (LOPRESSOR) 25 mg tablet take 1 tablet by mouth twice a day as needed - mirtazapine (REMERON) 15 mg tablet TAKE 1 TABLET BY MOUTH EVERYDAY AT BEDTIME - lamoTRIgine (LAMICTAL) 25 mg tablet TAKE ONE TABLET DAILY FOR 2 WEEKS THEN TWO TABLETS DAILY FOR 2 WEEKS THEN TAKE THE 100 MG BY MOUTH DAILY - gabapentin (NEURONTIN) 300 mg capsule take one tablet po bid and 2 tablets po qhs - ondansetron (ZOFRAN) 4 mg tablet Take 1 tablet by mouth every 6 hours as needed for nausea/vomiting. Problem List As Of Date (more content not included)... Normal [facility] Basic metabolic 2000 panelOr dered By: Jason Cordova on 09-01-2023 Anion gap [Moles/Vol] 8 mmol/L 8 - 15 mmol/L [facility] Calcium [Mass/Vol] 8.8 mg/dL 8.5 - 10. 2 mg/dL [facility] Chloride [Moles/Vol] 104 mmol/L 98 - 107 mmol/L [facility] CO2 [Moles/Vol] 25 mmol/L 22 - 30 mmol/L [facility] Creatinine [Mass/Vol] 0.75 mg/dL 0.58 - 0.96 mg/dL [facility] GFR/1.73 sq M.predicted among non-blacks MDRD (S/P/Bld) [Vol rate/Area] 117 mL/min/{1.73_m2} - PINF [facility] Comment on above: Estimated Glomerular Filtration Rate (eGFR) is calculated using the 2020 CKD-EPI creatinine equation. This equation utilizes serum creatinine, sex, and age as parameters. The creatinine assay has traceable calibration to isotope dilution-mass spectrometry. Refer to KDIGO guidelines for clinical interpretation. In patients with unstable renal function, e.g. those with acute kidney injury, the eGFR may not accurately reflect actual GFR. Glucose [Mass/Vol] 92 mg/dL 74 - 99 mg/dL [facility] Comment on above: The [place] Diabete s Association (ADA) provides guidance for cutoff values for fasting glucose and random glucose. The ADA defines fasting as no caloric intake for at least 8 hours. Fasting plasma glucose results between 100 to 125 mg/dL indicate increased risk for diabetes (prediabetes). Fasting plasma glucose results greater than or equal to 126 mg/dL meet the criteria for diagnosis of diabetes. In the absence of unequivocal hyperglycemia, results should be confirmed by repeat testing. In a patient with classic symptoms of hyperglycemia or hyperglycemic crisis, random plasma glucose results greater than or equal to 200 mg/dL meet the criteria for diagnosis of diabetes. Reference: Standards of Medical Care in Diabetes 2016, [place] Diabetes Association. Diabetes Care. 2016.39(Suppl 1). Interpretation and review of laboratory results Normal [facility] Potassium [Moles/Vol] 4.4 mmol/L 3.7 - 5.1 mmol/L [facility] Sodium [Moles/Vol] 137 mmol/L 136 - 144 mmol/L [facility] Urea nitrogen [Mass/Vol] 9 mg/dL 7 - 21 mg/dL [facility] Basic metabolic 2000 panelon 09-01-2023 Anion gap [Moles/Vol] 8 mmol/L Normal 8-15 [facility] Comment on above: Order Comment: Speci men Type: BLOOD SPECIMEN Ordering Facility: [facility] Address: [address] [place] [address] Performed By: #### 2 4321-2 #### [facility] CLIA [id number] [address] [place] [address] [place] Calcium [Mass/Vol] 8.8 mg/dL Normal 8.5-10.2 [facility] Comment on above: Order Comment: Speci men Type: BLOOD SPECIMEN Ordering Facility: [facility] Address: [address] [place] [address] Performed By: #### 2 4321-2 #### [facility] CLIA [id number] [address] [place] [address] [place] Chloride [Moles/Vol] 104 mmol/L Normal 98-107 [facility] Comment on above: Order Comment: Speci men Type: BLOOD SPECIMEN Ordering Facility: [facility] Address: [address] [place] [address] Performed By: #### 2 4321-2 #### [facility] CLINIC[facility] [id number] [address] [place] [address] [place] CO2 [Moles/Vol] 25 mmol/L Normal 22-30 [facility] Comment on above: Order Comment: Speci men Type: BLOOD SPECIMEN Ordering Facility: [facility] Address: [address] [place] [address] Performed By: #### 2 4321-2 #### [facility] [id number] [address] [place] [address] [place] Creatinine [Mass/Vol] 0.75 mg/dL Normal 0.58-0.96 [facility] Comment on above: Order Comment: Speci men Type: BLOOD SPECIMEN Ordering Facility: [facility] Address: [address] [place] [address] Performed By: #### 2 4321-2 #### [facility] [id number] [address] [place] [address] Creatinine and Glomerular filtration rate.predicted panel (S/P/Bld) 117 mL/min/1.73m??? Normal >=60 [facility] Comment on above: Order Comment: Speci men Type: BLOOD SPECIMEN Ordering Facility: [facility] Address: [address] [place] [address] Result Comment: Nick mated Glomerular Filtration Rate (eGFR) is calculated using the 2020 CKD-EPI creatinine equation. This equation utilizes serum creatinine, sex, and age as parameters. The creatinine assay has traceable calibration to isotope dilution-mass spectrometry. Refer to KDIGO guidelines for clinical interpretation. In patients with unstable renal function, e.g. those with acute kidney injury, the eGFR may not accurately reflect actual GFR. Performed By: #### 2 4321-2 #### [facility] CLIA [id number] [address] [place] [address] [place] Glucose [Mass/Vol] 92 mg/dL Normal 74-99 [facility] Comment on above: Order Comment: Kayli moon Type: BLOOD SPECIMEN Ordering Facility: [facility] Address: [address] [place], [place] [id number] Result Comment: The [place] Diabetes Association (ADA) provides guidance for cutoff values for fasting glucose and random glucose. The ADA defines fasting as no caloric intake for at least 8 hours. Fasting plasma glucose results between 100 to 125 mg/dL indicate increased risk for diabetes (prediabetes). Fasting plasma glucose results greater than or equal to 126 mg/dL meet the criteria for diagnosis of diabetes. In the absence of unequivocal hyperglycemia, results should be confirmed by repeat testing. In a patient with classic symptoms of hyperglycemia or hyperglycemic crisis, random plasma glucose results greater than or equal to 200 mg/dL meet the criteria for diagnosis of diabetes. Reference: Standards of Medical Care in Diabetes 2016, [place] [employer] Association. Diabetes Care. 2016.39(Suppl 1). Performed By: #### 2 4321-2 #### [facility] CLINICIA [id number] [address] [place] [address] [place] Potassium [Moles/Vol] 4.4 mmol/L Normal 3.7-5.1 [facility] Comment on above: Order Comment: Lindai men Type: BLOOD SPECIMEN Ordering Facility: [facility] Address: [address] [place] [address] Performed By: #### 2 4321-2 #### [facility] CLINIC[facility] [id number] [address] [place] [address] [place] Sodium [Moles/Vol] 137 mmol/L Normal 136-144 [facility] Comment on above: Order Comment: Kayli moon Type: BLOOD SPECIMEN Ordering Facility: [facility] Address: [address] [place] [address] Performed By: #### 2 4321-2 #### [facility] CLIA [id number] [address] [place] [address] [place] Urea nitrogen [Mass/Vol] 9 mg/dL Normal 7-21 [facility] Comment on above: Order Comment: Speci men Type: BLOOD SPECIMEN Ordering Facility: [facility] Address: [facility] [place] [id number] Performed By: #### 2 4321-2 #### [facility] CLIA [id number] [address] [place] [address] [place] CBC W Auto Differential pane l (Bld)on 09-01-2023 Basophils (Bld) [#/Vol] [facility] Basophils/100 WBC (Bld) 0.6 % [facility] Differential cell count method Nom (Bld) Auto [facility] Eosinophils (Bld) [#/Vol] [facility] Eosinophils/100 WBC (Bld) 0.3 % [facility] Erythrocyte distribution width (RBC) [Ratio] 13.6 % 11.5 - 15.0 % [facility] Hematocrit (Bld) [Volume fraction] 41.6 % 36.0 - 46.0 % [facility] Hemoglobin (Bld) [Mass/Vol] 13.5 g/dL 11.5 - 15.5 g/dL [facility] Immature granulocytes (Bld) [#/Vol] [facility] Immature granulocytes/100 WBC (Bld) 0.0 % [facility] Interpretation and review of laboratory results Abnormal [facility] Lymphocytes (Bld) [#/Vol] 1.48 10*3/uL [facility] Lymphocytes/100 WBC (Bld) 41.7 % [facility] MCH (RBC) [Entitic mass] 28.3 pg 26.0 - 34.0 pg [facility] MCHC (RBC) [Mass/Vol] 32.5 g/dL 30.5 - 36.0 g/dL [facility] MCV (RBC) [Entitic vol] 87.2 fL 80.0 - 100.0 fL [facility] Monocytes (Bld) [#/Vol] 0.38 10*3/uL [facility] Monocytes/100 WBC (Bld) 10.7 % [facility] Neutrophils (Bld) [#/Vol] 1.66 10*3/uL [facility] Neutrophils/100 WBC (Bld) 46.7 % [facility] Nucleated RBC (Bld) [#/Vol] NINF [facility] Nucleated RBC/100 WBC (Bld) [Ratio] 0.0 % /100 WBC [facility] Platelet mean volume (Bld) [Entitic vol] 11.9 fL 9.0 - 12.7 fL [facility] Platelets (Bld) [#/Vol] 181 10*3/uL [facility] RBC (Bld) [#/Vol] 4.77 10*6/uL 3.90 - 5.2 0 m/uL [facility] WBC (Bld) [#/Vol] 3.55 10*3/uL Low [facility] Basophils (Bld) [#/Vol] 10*3/uL Normal <0.11 [facility] Comment on above: Order Comment: Speci men Type: BLOOD SPECIMENOrdering Facility: [facility] Address: [address] [place] [address] Performed By: #### 5 7021-8 ####[facility] [id number] [place] [address] [place] Basophils/100 WBC (Bld) 0.6 % Normal [facility] Comment on above: Order Comment: Speci men Type: BLOOD SPECIMENOrdering Facility: [facility] Address: [address] [place] [address] Performed By: #### 5 7021-8 ####[facility] [id number] [place] [address] [place] Differential cell count method Nom (Bld) Auto Normal [facility] Comment on above: Order Comment: Speci men Type: BLOOD SPECIMENOrdering Facility: [facility] Address: [address] [place] [address] Performed By: #### 5 7021-8 ####[facility] [id number] [place] [address] [place] Eosinophils (Bld) [#/Vol] 10*3/uL Normal <0.46 [facility] Comment on above: Order Comment: Speci men Type: BLOOD SPECIMENOrdering Facility: [facility] Address: [address] [place] [address] Performed By: #### 5 7021-8 ####[facility] [id number] [place] [address] [place] Eosinophils/100 WBC (Bld) 0.3 % Normal [facility] Comment on above: Order Comment: Speci men Type: BLOOD SPECIMENOrdering Facility: [facility] Address: [address] [place] [address] Performed By: #### 5 7021-8 ####[facility] [id number] [place] [address] [place] Erythrocyte distribution width (RBC) [Ratio] 13.6 % Normal 11.5-15.0 [facility] Comment on above: Order Comment: Speci men Type: BLOOD SPECIMENOrdering Facility: [facility] Address: [address] [place] [address] Performed By: #### 5 7021-8 ####[facility] EMERAL[facility] COASTNCLI [id number] [place] [address] [place] Hematocrit (Bld) [Volume fraction] 41.6 % Normal 36.0-46.0 [facility] Comment on above: Order Comment: Speci men Type: BLOOD SPECIMENOrdering Facility: [facility] Address: [address] [place], [place] [id number] Performed By: #### 5 7021-8 ####[facility] [id number] [place] [address] [place] Hemoglobin (Bld) [Mass/Vol] 13.5 g/dL Normal 11.5-15.5 [facility] Comment on above: Order Comment: Speci men Type: BLOOD SPECIMENOrdering Facility: [facility] Address: [address] [place] [address] Performed By: #### 5 7021-8 ####[facility] MILLTOWNCLIA [id number] [place] [address] [place] Immature granulocytes (Bld) [#/Vol] 10*3/uL Normal <0.10 [facility] Comment on above: Order Comment: Speci men Type: BLOOD SPECIMENOrdering Facility: [facility] Address: [address] [place] [address] Performed By: #### 5 7021-8 ####[facility] KRISTYWNCLIA [id number] [place] [address] [place] Immature granulocytes/100 WBC (Bld) 0.0 % Normal [facility] Comment on above: Order Comment: Speci men Type: BLOOD SPECIMENOrdering Facility: [facility] Address: [address] [place] [address] Performed By: #### 5 7021-8 ####[facility] FLIPWNCLIA [id number] [place] [address] [place] Lymphocytes (Bld) [#/Vol] 1.48 10*3/uL Normal 1.00-4.00 [facility] Comment on above: Order Comment: Speci men Type: BLOOD SPECIMENOrdering Facility: [facility] Address: [address] [place] [address] Performed By: #### 5 7021-8 ####[facility] MILLTOWNCLIA [id number] [place] [address] [place] Lymphocytes/100 WBC (Bld) 41.7 % Normal [facility] Comment on above: Order Comment: Speci men Type: BLOOD SPECIMENOrdering Facility: [facility] Address: [address] [place] [address] Performed By: #### 5 7021-8 ####[facility] MILLTOWNCLIA [id number] [place] [address] [place] MCH (RBC) [Entitic mass] 28.3 pg Normal 26.0-34.0 [facility] Comment on above: Order Comment: Speci men Type: BLOOD SPECIMENOrdering Facility: [facility] Address: [address] [place] [address] Performed By: #### 5 7021-8 ####[facility] [id number] [place] [address] [place] MCHC (RBC) [Mass/Vol] 32.5 g/dL Normal 30.5-36.0 [facility] Comment on above: Order Comment: Speci men Type: BLOOD SPECIMENOrdering Facility: [facility] Address: [address] [place] [address] Performed By: #### 5 7021-8 ####[facility] [id number] [place] [address] [place] MCV (RBC) [Entitic vol] 87.2 fL Normal 80.0-100.0 [facility] Comment on above: Order Comment: Speci men Type: BLOOD SPECIMENOrdering Facility: [facility] Address: [address] [place] [address] Performed By: #### 5 7021-8 ####[facility] [id number] [place] [address] [place] Monocytes (Bld) [#/Vol] 0.38 10*3/uL Normal <0.87 [facility] Comment on above: Order Comment: Speci men Type: BLOOD SPECIMENOrdering Facility: [facility] Address: [address] [place] [address] Performed By: #### 5 7021-8 ####[facility] [id number] [place] [address] [place] Monocytes/100 WBC (Bld) 10.7 % Normal [facility] Comment on above: Order Comment: Speci men Type: BLOOD SPECIMENOrdering Facility: [facility] Address: [address] [place] [address] Performed By: #### 5 7021-8 ####[facility] [id number] [place] [address] [place] Neutrophils (Bld) [#/Vol] 1.66 10*3/uL Normal 1.45-7.50 [facility] Comment on above: Order Comment: Speci men Type: BLOOD SPECIMENOrdering Facility: [facility] Address: [address] [place] [address] Performed By: #### 5 7021-8 ####[facility] [id number] [place] [address] [place] Neutrophils/100 WBC (Bld) 46.7 % Normal [facility] Comment on above: Order Comment: Speci men Type: BLOOD SPECIMENOrdering Facility: [facility] Address: [address] [place] [address] Performed By: #### 5 7021-8 ####[facility] [id number] [place] [address] [place] Nucleated RBC (Bld) [#/Vol] 10*3/uL Normal <0.01 [facility] Comment on above: Order Comment: Speci men Type: BLOOD SPECIMENOrdering Facility: [facility] Address: [address] [place] [address] Performed By: #### 5 7021-8 ####[facility] [id number] [place] [address] [place] Nucleated RBC/100 WBC (Bld) [Ratio] 0.0 /100 WBC Normal [facility] Comment on above: Order Comment: Speci men Type: BLOOD SPECIMENOrdering Facility: [facility] Address: [address] [place] [address] Performed By: #### 5 7021-8 ####[facility] LORENANCDIEGO [id number] [place] [address] [place] Platelet mean volume (Bld) [Entitic vol] 11.9 fL Normal 9.0-12.7 [facility] Comment on above: Order Comment: Speci men Type: BLOOD SPECIMENOrdering Facility: [facility] Address: [address] [place] [address] Performed By: #### 5 7021-8 ####[facility] EMERAL[facility] COASTNCDIEGO [id number] [place] [address] [place] Platelets (Bld) [#/Vol] 181 10*3/uL Normal 150-400 [facility] Comment on above: Order Comment: Speci men Type: BLOOD SPECIMENOrdering Facility: [facility] Address: [address] [place] [address] Performed By: #### 5 7021-8 ####[facility] EMERALD COASTNCLIA [id number] [place] [address] [place] RBC (Bld) [#/Vol] 4.77 10*6/uL Normal 3.90-5.20 [facility] Comment on above: Order Comment: Speci men Type: BLOOD SPECIMENOrdering Facility: [facility] Address: [address] [place], [place] [id number] Performed By: #### 5 7021-8 ####[facility] EMERALD COASTNCLIA [id number] [place] [address] [place] WBC (Bld) [#/Vol] 3.55 10*3/uL Low 3.70-11.00 [facility] Comment on above: Order Comment: Speci men Type: BLOOD SPECIMENOrdering Facility: [facility] Address: [address] [place] [address] Performed By: #### 5 7021-8 ####[facility] CASTELANNCDIEGO [id number] [place] [address] [place] HISTORY PHYSICALon HISTORY PHYSICAL HNO ID: [id number] Author: JOYCE MISHRA PA-C Service: ? Author Type: Physician Jazz Musician Type: H&P Filed: 09/08/2023 10:19 Note Text: [facility] HISTORY AND PHYSICAL EXAMINATION SERVICE DATE: 09/01/2023 SERVICE TIME: 9:18 AM PRIMARY CARE PHYSICIAN: Rachell Amador APRN.DOCTOR ASSISTANT Assessment Patient has the following medical conditions which may affect sarah-operative course: Pulmonary embolism (HCC) Assessment: 06/21/23, post-op following lap bird. On Eliquis BID. Pt was evaluated by hem/onc Dr. Jaramillo 07/02/23 at , plan for Eliquis x 3 months then monitor and hypercoag testing. Advised pt that typically patients are to remain on AC uninterrupted for at least 3 months following VTE, upcoming surgery is 09/15/23. Pt said that she has upcoming appt with outside cardiology at Dr. Fernando Noriega on 09/03/23, and this is who is managing her Eliquis. Advised pt to discuss pre-op instructions for Eliquis with Dr. Fernando Noriega on 09/03/23. Pt verbalized understanding. Vapes nicotine containing substance Assessment: Daily. Advised pt no vaping DOS. Marijuana use Assessment: Smokes MJ 2x per week. Patient instructed to refrain from marijuana use for 1 week prior to surgery. Patient verbalized understanding. Generalized anxiety disorder Assessment: Stable, on RX. Follows with psych. Depression Assessment: Stable, on RX. Follows with psych. Paroxysmal SVT (supraventricular tachycardia) (HCC) Assessment: Noted on Holter 07/2023. Pt takes metoprolol PRN. Pt reports episodes of pSVT daily to every other day. Following with EP at , Dr. Hugo. Pt is scheduled for ablation 10/03/23. RRR on exam today. [place]ardon Activity Status Index: METS: Do moderate work around the house, such as vacuuming, sweeping floors, or carrying in groceries (3.50 METs) DASI Score: 3.5 Patient denies any chest pain or undue shortness of breath with the above physical activity. Clinical Frailty Scale: 3. Well, with treated comorbid disease STOP-Bang Score: Often feels tired, fatigued, or sleepy during the daytime Denies snoring loudly Has not been observed to stop breathing or choking/gasping during sleep Denies having high blood pressure BMI less than or equal to 35 kg/m2 Patient 50 years old or younger Does not have a large neck Non-male patient STOP-Bang Score: 1 [id number] Score: Age: <65 Sex: female CHF history: No Hypertension history: No Stroke/TIA/thromboem bolism history: Yes Vascular disease history: No Diabetes history: No [id number] Score: 3 ANESTHESIA FINDINGS: Intubation History: No history of difficult intubation. No abnormal airway history Significant Anesthesia Considerations: none Airway History: No history of difficult airway No abnormal airway history I - PHYSICAL EVALUATION AIRWAY Patient intubated: No. Tracheostomy tube not present Mallampati: II. TM distance: >3 FB. Neck ROM: full ROM without neurological symptoms. Mouth opening: non-adequate. Short neck: no. Thick neck: no Lip Bite Test: II Microretrognathia/Mi cronagthia/Recessed Chin: Yes DENTAL Dental findings: teeth intact. Additional comments: Braces - upper and lower. II - ANESTHESIA PLAN Anesthetic Plan: other Anesthetic plan additional comments: *PACC/TCI - anesthesia choice. Beta Yanira Monitoring Plan Post Procedure Analgesic Plan Prepared for Surgery: optimally prepared for surgery. CONSULTS: The following consults have been initiated at this time: anesthesia (Email sent to Dr. Coker 09/02/23 for review d/t upcoming SVT ablation scheduled at .) and cardiology (Pt has appt with outside liquid sugar fortifier 09/02, pt told me Dr. Fernando Noriega is managing her Eliquis, pt was advised to discuss pre-op Eliquis instructions at upcoming appointment.). Planned Anesthetic: other anesthesia choice Cardiology Appointment - Dr. Fernando Noriega - 09/03/23 Care Everywhere Assessment/Plan #Incidental low risk subsegmental pulmonary embolism -Pulmonary embolism in the setting of acute illness with cholecystitis and surgery on 06/2023, in the background of a history of smoking. Likely provoked event?. No DVT on ultrasound -She is planned for surgery to remove extrauterine IUD. -Okay to stop anticoagulation once she completes 3 months of therapy which would be by the end of August -After this recommend she does hypercoagulable testing that has been ordered by hematology. Will also add APLA testing. Continue follow-up with hematology -Echocardiogram done at [facility] showed normal LV and RV function with no valvular abnormalities -For her planned surgery if she stays as inpatient recommend for her to wear SCDs at all times and to use prophylactic subcutaneous heparin. Also discussed early mobilization to prevent VTE # SVT -Follow-up with electrophysiology for outpatient SVT ablation Norbert Fernandes MD [facility] (more content not included)... 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 I was not present for image acquisition. I did not speak to the patient. 1. The uterus is 83 x 53 x 36 mm and anteverted. 2. The myometrium is normal, no lesions. 3. The endometrium is 2 mm. Thin, homogenous. No IUD noted. 4. The cervix is normal. No IUD noted. 5. There is trace free fluid in the pelvis. 6. The right ovary is 45 x 21 x 19 mm and normal. 7. The left ovary is 29 x 24 x 18 mm and normal. Recommendations 1. Prior to TVUS there was an echogenic focus within the vagina. Patient had a tampon in place. When this was removed there still was a possible hpyerechoic lesion within the vaginal canal, possibly IUD. Recommend physical exam (this was a remote read). 2. No IUD was seen within the uterus. Correlate clinically and consider pelvic X-Ray if not localized on physical exam. 3. Otherwise normal pelvic ultrasound. Menstrual History LMP on 07/12/2023. Contraception: Intrauterine contraceptive device Method Transabdominal, transvaginal, 3D ultrasound examination, Color Doppler examination. View: Adequate visualization Uterus Uterus: Visualized Uterus position: anteverted Description of uterine malformations: none Myometrium: normal Endometrium: normal Cervix details: normal Uterus length 83 mm Uterus width 53 mm Uterus height 36 mm Uterus Vol 82.0 cm Endometrial thickness, total 2.2 mm Fibroids: No fibroids identified Polyps: No polyps identified IUCD Position control IUCD type: Mirena intrauterine system. Location: no IUCD seen in the endometrial cavity possibly visualized within the vaginal canal during transabdominal exam, unable to visualized during transvaginal exam Right Ovary Rt ovary: Visualized Rt ovary morphology: premenopausal with dominant follicle Rt ovary D1 45 mm Rt ovary D2 21 mm Rt ovary D3 19 mm Rt ovary Vol 9.6 cm Rt ovarian follicle D1 16.4 mm Rt ovarian follicle D2 19.8 mm Rt ovarian follicle mean 18.1 mm Rt ovarian follicle vol 2.780 cm Left Ovary Lt ovary: Visualized Lt ovary morphology: premenopausal normal follicular Lt ovary D1 29 mm Lt ovary D2 24 mm Lt ovary D3 18 mm Lt ovary Vol 6.7 cm Cul de Sac Visualized. free fluid visualized: trace Performed By: Sylvia Salvador RDMS Read By: Herve Rea M.D. MATERNAL MEDICINE [facility] Radiology Study observation (narrative) [facility] US LOWER EXTREMITY VENO US DUPLEX BILATERALon 07-09-2023 [facility] US LOWER EXTREMITY [place] [address] [phone], Vascular Lab Report [facility] US LOWER EXTREMITY VENOUS DUPLEX BILATERAL Patient Name: KEAGAN ALICIA Reading Physician: [id number] Swanson MD Study Date: 07/09/2023 Ordering Provider: [id number] NORIEGA MRN/PID: [id number] Fellow: Technologist: Kath Rodriguez RVT/ Date of /Age: 8 2000 / 22 years Technologist 2: Gender: F Admission Status: Outpatient Location Performed: [facility] Diagnosis/ICD: Other pulmonary embolism without acute cor pulmonale-I26.99 CPT Codes: 54427 Peripheral venous duplex scan for DVT complete CONCLUSIONS: Right Lower Venous: No evidence of acute deep vein thrombus visualized in the right lower extremity. Left Lower Venous: No evidence of acute deep vein thrombus visualized in the left lower extremity. Imaging & Doppler Findings: Right Compressible Thrombus Flow Distal External Iliac Yes None Spontaneous/Phasic CFV Yes None Spontaneous/Phasic PFV Yes None FV Proximal Yes None Spontaneous/Phasic FV Mid Yes None FV Distal Yes None Popliteal Yes None Spontaneous/Phasic Peroneal Yes None PTV Yes None Left Compress Thrombus Flow Distal External Iliac Yes None Spontaneous/Phasic CFV Yes None Spontaneous/Phasic PFV Yes None FV Proximal Yes None Spontaneous/Phasic FV Mid Yes None FV Distal Yes None Popliteal Yes None Spontaneous/Phasic Peroneal Yes None PTV Yes None [id number] Norbert Swanson MD Final [facility] C. trachomatis+N. gonorrhoea e DNA SHYAM+probe Ql (Unsp spec)on 06-27-2023 C. trachomatis rRNA SHYAM+probe Ql (Unsp spec) Negative Negative for Chlamydia trachomatis by amplificaton [facility] Interpretation and review of laboratory results Normal [facility] N. gonorrhoeae rRNA SHYAM+probe Ql (Unsp spec) Negative Negative for Neisseria gonorrhoeae by amplification [facility] TRICHOMONAS VAGINALIS NAATon 06-27-2023 Interpretation and review of laboratory results Normal [facility] T. vaginalis DNA SHYAM+probe Ql (Unsp spec) Negative Negative for Trichomonas vaginalis by amplification [facility] Bacteria identifiedon 2023 Bacteria identified Cx Nom (U) Test: Urine Culture Specimen Source: Clean Catch/Voided Specimen Type: Urine Specimen Date: 06/24/20232045 Result Date: 06/26/2023 08 Result Status: Final result Abnormal: No Resulting Lab: [facility] [address] [place] [address] CULTURE No growth [facility] Comment on above: Performed By: #### 2 4323-8 #### MELISSA WHITEHEAD ([id number]) [facility] ([facility]) [address] [place] [address] CBC panel Auto (Bld)on 06-23 Erythrocyte distribution width (RBC) [Ratio] 14.7 % High 11.5 - 14.5 % [facility] Hematocrit (Bld) [Volume fraction] 44.3 % 36.0 - 46.0 % [facility] Hemoglobin (Bld) [Mass/Vol] 14.6 g/dL 12.0 - 16.0 g/dL [facility] Interpretation and review of laboratory results Abnormal [facility] MCH (RBC) [Entitic mass] 28.6 pg 26.0 - 34.[address] [facility] MCHC (RBC) [Mass/Vol] 33.0 g/dL 32.0 - 36.0 g/dL [facility] MCV (RBC) [Entitic vol] 87 fL 80 - [address] [facility] Nucleated RBC/100 WBC (Bld) [Ratio] 0.0 % [facility] Platelets (Bld) [#/Vol] 232 10*3/uL [facility] RBC (Bld) [#/Vol] 5.11 10*6/uL [facility] WBC (Bld) [#/Vol] 4.7 10*3/uL [facility] Erythrocyte distribution width (RBC) [Ratio] 14.7 % High 11.5-14.5 [facility] Comment on above: Performed By: #### 2 4323-8 #### MELISSA WHITEHEAD ([id number]) [facility] ([facility]) [facility] [place] [address] Hematocrit (Bld) [Volume fraction] 44.3 % Normal 36.0-46.0 [facility] Comment on above: Performed By: #### 2 4323-8 #### MELISSA WHITEHEAD ([id number]) [facility] ([facility]) [address] [place] [address] Hemoglobin (Bld) [Mass/Vol] 14.6 g/dL Normal 12.0-16.0 [facility] Comment on above: Performed By: #### 2 432-8 #### MELISSA WHITEHEAD ([id number]) [facility] ([facility]) [address] [place] [address] MCH (RBC) [Entitic mass] 28.6 pg Normal 26.0-34.0 [facility] Comment on above: Performed By: #### 2 4322-8 #### MELISSA WHITEHEAD ([id number]) [facility] ([facility]) [address] [place] [address] MCHC (RBC) [Mass/Vol] 33.0 g/dL Normal 32.0-36.0 [facility] Comment on above: Performed By: #### 2 4322-8 #### MELISSA WHITEHEAD ([id number]) [facility] ([facility]) [address] [place] [address] MCV (RBC) [Entitic vol] 87 fL Normal 80-100 [facility] Comment on above: Performed By: #### 2 432-8 #### MELISSA WHITEHEAD ([id number]) [facility] ([facility]) [address] [place] [address] Nucleated RBC/100 WBC (Bld) [Ratio] 0.0 /100 WBCs Normal 0.0-0.0 [facility] Comment on above: Performed By: #### 2 432-8 #### MELISSA WHITEHEAD ([id number]) [facility] ([facility]) [address] [place] [address] Platelets (Bld) [#/Vol] 232 x10*3/uL Normal 150-450 [facility] Comment on above: Performed By: #### 2 432-8 #### MELISSA WHITEHEAD ([id number]) [facility] ([facility]) [address] [place] [address]2047 RBC (Bld) [#/Vol] 5.11 x10*6/uL Normal 4.00-5.20 [facility] Comment on above: Performed By: #### 2 4323-8 #### MELISSA BOXNELL ([id number]) [facility] ([facility]) [address] [place] [address] WBC (Bld) [#/Vol] 4.7 x10*3/uL Normal 4.4-11.3 [facility] Comment on above: Performed By: #### 2 4323-8 #### MELISSA BOXNELL ([id number]) [facility] ([facility]) [address] [place] [address] CT ABDOMEN PELVIS W IV CONTR [place] 06-24-2023 CT ABDOMEN PELVIS W IV CONTRAST Interpreted By: Christa Gagnon, STUDY: CT ABDOMEN PELVIS W IV CONTRAST; 06/24/2023 8:08 pm INDICATION: Signs/Symptoms:pain. COMPARISON: 06/19/2023 ACCESSION NUMBER(S): [id number] ORDERING CLINICIAN: MEGAN BERG TECHNIQUE: Axial CT images of the abdomen and pelvis with coronal and sagittal reconstructed images obtained after intravenous administration of contrast FINDINGS: LOWER CHEST: There is a persistent nonocclusive filling defect in a subsegmental branch of the right lower lobe, consistent with the known acute pulmonary embolism. BONES: No acute osseous abnormality. ABDOMINAL WALL: Within normal limits. ABDOMEN: LIVER: Hypodensity adjacent to the falciform ligament, likely focal fatty infiltration. BILE DUCTS: No biliary dilatation. GALLBLADDER: Status post cholecystectomy. Trace residual fluid in the cholecystectomy bed, consistent with recent surgery. No organized fluid collection. PANCREAS: Within normal limits. SPLEEN: Within normal limits. ADRENALS: Within normal limits. KIDNEYS and URETERS: Symmetric renal enhancement. No hydronephrosis or perinephric fluid collection. VESSELS: No aortic aneurysm. RETROPERITONEUM: No pathologically enlarged retroperitoneal lymph nodes. PELVIS: REPRODUCTIVE ORGANS: Follicular changes noted in the ovaries. The uterus is unremarkable. BLADDER: Within normal limits. BOWEL: No dilated bowel. Normal appendix. PERITONEUM: No pneumoperitoneum or organized fluid collection. Small amount of simple free pelvic fluid, decreased from 06/19/2023. previously described peritoneal enhancement is not apparent on this examination. IMPRESSION: Postsurgical changes of recent cholecystectomy. No fluid collection in the surgical bed. No evidence of acute abdominal or pelvic abnormality. Acute subsegmental pulmonary embolism in the right lower lobe, described on PE CT dated 06/21/2023. MACRO: None Signed by: Christa Gagnon 06/24/2023 9:10 PM Dictation workstation: [id number] [facility] CT Abdomen and Pelvis W cont rast Anjali 06-24-2023 Postsurgical changes of recent cholecystectomy. No fluid collection in the surgical bed. No evidence of acute abdominal or pelvic abnormality. Acute subsegmental pulmonary embolism in the right lower lobe, described on PE CT dated 06/21/2023. MACRO: None Signed by: Christa Gagnon 06/24/2023 9:10 PM Dictation workstation: [id number] [facility] Interpreted By: Christa Gagnon, STUDY: CT ABDOMEN PELVIS W IV CONTRAST; 06/24/2023 8:08 pm INDICATION: Signs/Symptoms:pain. COMPARISON: 06/19/2023 ACCESSION NUMBER(S): [id number] ORDERING CLINICIAN: MEGAN BERG TECHNIQUE: Axial CT images of the abdomen and pelvis with coronal and sagittal reconstructed images obtained after intravenous administration of contrast FINDINGS: LOWER CHEST: There is a persistent nonocclusive filling defect in a subsegmental branch of the right lower lobe, consistent with the known acute pulmonary embolism. BONES: No acute osseous abnormality. ABDOMINAL WALL: Within normal limits. ABDOMEN: LIVER: Hypodensity adjacent to the falciform ligament, likely focal fatty infiltration. BILE DUCTS: No biliary dilatation. GALLBLADDER: Status post cholecystectomy. Trace residual fluid in the cholecystectomy bed, consistent with recent surgery. No organized fluid collection. PANCREAS: Within normal limits. SPLEEN: Within normal limits. ADRENALS: Within normal limits. KIDNEYS and URETERS: Symmetric renal enhancement. No hydronephrosis or perinephric fluid collection. VESSELS: No aortic aneurysm. RETROPERITONEUM: No pathologically enlarged retroperitoneal lymph nodes. PELVIS: REPRODUCTIVE ORGANS: Follicular changes noted in the ovaries. The uterus is unremarkable. BLADDER: Within normal limits. BOWEL: No dilated bowel. Normal appendix. PERITONEUM: No pneumoperitoneum or organized fluid collection. Small amount of simple free pelvic fluid, decreased from 06/19/2023. previously described peritoneal enhancement is not apparent on this examination. [facility] Christa Gagnon MD - 06/24/2023 Interpreted By: Christa Gagnon, STUDY: CT ABDOMEN PELVIS W IV CONTRAST; 06/24/2023 8:08 pm INDICATION: Signs/Symptoms:pain. COMPARISON: 06/19/2023 ACCESSION NUMBER(S): [id number] ORDERING CLINICIAN: MEGAN BERG TECHNIQUE: Axial CT images of the abdomen and pelvis with coronal and sagittal reconstructed images obtained after intravenous administration of contrast FINDINGS: LOWER CHEST: There is a persistent nonocclusive filling defect in a subsegmental branch of the right lower lobe, consistent with the known acute pulmonary embolism. BONES: No acute osseous abnormality. ABDOMINAL WALL: Within normal limits. ABDOMEN: LIVER: Hypodensity adjacent to the falciform ligament, likely focal fatty infiltration. BILE DUCTS: No biliary dilatation. GALLBLADDER: Status post cholecystectomy. Trace residual fluid in the cholecystectomy bed, consistent with recent surgery. No organized fluid collection. PANCREAS: Within normal limits. SPLEEN: Within normal limits. ADRENALS: Within normal limits. KIDNEYS and URETERS: Symmetric renal enhancement. No hydronephrosis or perinephric fluid collection. VESSELS: No aortic aneurysm. RETROPERITONEUM: No pathologically enlarged retroperitoneal lymph nodes. PELVIS: REPRODUCTIVE ORGANS: Follicular changes noted in the ovaries. The uterus is unremarkable. BLADDER: Within normal limits. BOWEL: No dilated bowel. Normal appendix. PERITONEUM: No pneumoperitoneum or organized fluid collection. Small amount of simple free pelvic fluid, decreased from 06/19/2023. previously described peritoneal enhancement is not apparent on this examination. IMPRESSION: Postsurgical changes of recent cholecystectomy. No fluid collection in the surgical bed. No evidence of acute abdominal or pelvic abnormality. Acute subsegmental pulmonary embolism in the right lower lobe, described on PE CT dated 06/21/2023. MACRO: None Signed by: Christa Gagnon 06/24/2023 9:10 PM Dictation workstation: [id number] [facility] Work Phone: Radiology Study observation (narrative) [facility] Work Phone: CT Abdomen and Pelvis W cont rast IVOrdered By: Christa Gagnon on 06-24-2023 [facility] Work Phone: Choriogonadotropin.beta subu niton 06-24-2023 HCG.beta subunit Qn m[IU]/mL Normal <5 [facility] Comment on above: Order Comment: Total HCG measurement is performed using the Marcello Fabiano Access Immunoassay which detects intact HCG and free beta HCG subunit. This test is not indicated for use as a tumor marker. HCG testing is performed using a different test methodology at [facility] than other bay area hospital. Direct result comparison should only be made within the same method. Performed By: #### 2 4323-8 #### MELISSA WHITEHEAD ([id number]) [facility] ([facility]) [address] [place] [address] [facility] PT Coag (PPP) [Time] 21.2 s High 9.8-12.8 [facility] Comment on above: Performed By: #### 2 4323-8 #### MELISSA WHITEHEAD ([id number]) [facility] ([facility]) [address] [place] [address] Comprehensive metabolic 2000 panelon 06-24-2023 Albumin BCP dye [Mass/Vol] 4.8 g/dL 3.4 - 5.0 g/dL [facility] ALP [Catalytic activity/Vol] 54 U/L 33 - 110 U/L [facility] ALT With P-5'-P [Catalytic activity/Vol] 20 U/L 7 - 45 U/L [facility] Comment on above: Patients treated wit h Sulfasalazine may generate falsely decreased results for ALT. Anion gap [Moles/Vol] 19 mmol/L 10 - 20 mmol/L [facility] AST With P-5'-P [Catalytic activity/Vol] 15 U/L 9 - 39 U/L [facility] Bilirubin [Mass/Vol] 0.7 mg/dL 0.0 - 1.2 mg/dL [facility] Calcium [Mass/Vol] 9.3 mg/dL 8.6 - 10. 3 mg/dL [facility] Chloride [Moles/Vol] 99 mmol/L 98 - 107 mmol/L [facility] CO2 [Moles/Vol] 20 mmol/L Low 21 - 32 mmol/L Unive [facility] Creatinine [Mass/Vol] 0.63 mg/dL 0.50 - 1.05 mg/dL [facility] eGFR - PINF [facility] Comment on above: Calculations of nick mated GFR are performed using the 2020 CKD-EPI Study Refit equation without the race variable for the IDMS-Traceable creatinine methods. https://jasn.asnjournals.org/content/early//ASN.2020 574989 Glucose [Mass/Vol] 61 mg/dL Low 74 - 99 mg/dL Uni [facility] Interpretation and review of laboratory results Abnormal [facility] Potassium [Moles/Vol] 3.9 mmol/L 3.5 - 5.3 mmol/L [facility] Protein [Mass/Vol] 7.2 g/dL 6.4 - 8.2 g/dL [facility] Sodium [Moles/Vol] 134 mmol/L Low 136 - 145 mmol/L [facility] Urea nitrogen [Mass/Vol] 7 mg/dL 6 - 23 mg/dL [facility] Albumin BCP dye [Mass/Vol] 4.8 g/dL Normal 3.4-5.0 [facility] Comment on above: Performed By: #### 2 4323-8 #### MELISSA WHITEHEAD ([id number]) [facility] ([facility]) [address] [place] [address] ALP [Catalytic activity/Vol] 54 U/L Normal 33-110 [facility] Comment on above: Performed By: #### 2 4323-8 #### MELISSA WHITEHEAD ([id number]) [facility] ([facility]) [address] [place] [address]179 ALT With P-5'-P [Catalytic activity/Vol] 20 U/L Normal 7-45 [facility] Comment on above: Result Comment: Gema ents treated with Sulfasalazine may generate falsely decreased results for ALT. Performed By: #### 2 4323-8 #### MELISSA WHITEHEAD ([id number]) [facility] ([facility]) [address] [place] [address] Anion gap [Moles/Vol] 19 mmol/L Normal 10-20 [facility] Comment on above: Performed By: #### 2 4323-8 #### MELISSA WHITEHEAD ([id number]) [facility] ([facility]) [address] [place] [address] AST With P-5'-P [Catalytic activity/Vol] 15 U/L Normal 9-39 [facility] Comment on above: Performed By: #### 2 432-8 #### MELISSA WHITEHEAD ([id number]) [facility] ([facility]) [address] [place] [address]27 Bilirubin [Mass/Vol] 0.7 mg/dL Normal 0.0-1.2 [facility] Comment on above: Performed By: #### 2 432-8 #### MELISSA WHITEHEAD ([id number]) [facility] ([facility]) [address] [place] [address] Calcium [Mass/Vol] 9.3 mg/dL Normal 8.6-10.3 [facility] Comment on above: Performed By: #### 2 432-8 #### MELISSA WHITEHEAD ([id number]) [facility] ([facility]) [address] [place] [address] Chloride [Moles/Vol] 99 mmol/L Normal 98-107 [facility] Comment on above: Performed By: #### 2 4323-8 #### MELISSA WHITEHEAD ([id number]) [facility] ([facility]) [address] [place] [address] CO2 [Moles/Vol] 20 mmol/L Low 21-32 [facility] Comment on above: Performed By: #### 2 4323-8 #### MELISSA WHITEHEAD ([id number]) [facility] ([facility]) [address] [place] [address] Creatinine [Mass/Vol] 0.63 mg/dL Normal 0.50-1.05 [facility] Comment on above: Performed By: #### 2 4323-8 #### MELISSA WHITEHEAD ([id number]) [facility] ([facility]) [address] [place] [address] 88531 GFR/1.73 sq M.predicted MDRD (S/P/Bld) [Vol rate/Area] mL/min/{1.73_m2} Normal >60 [facility] Comment on above: Result Comment: Calc ulations of estimated GFR are performed using the 2020 CKD-EPI Study Refit equation without the race variable for the IDMS-Traceable creatinine methods. https://jasn.asnjournals.org/content/early//ASN.2020 925224 Performed By: #### 2 4323-8 #### MELISSA WHITEHEAD ([id number]) [facility] ([facility]) [address] [place] [address] 21676 Glucose [Mass/Vol] 61 mg/dL Low 74-99 [facility] Comment on above: Performed By: #### 2 4323-8 #### MELISSA WHITEHEAD ([id number]) [facility] ([facility]) [address] [place] [address] 56932 Potassium [Moles/Vol] 3.9 mmol/L Normal 3.5-5.3 [facility] Comment on above: Performed By: #### 2 4323-8 #### MELISSA WHITEHEAD ([id number]) [facility] ([facility]) [address] [place] [address] 05184 Protein [Mass/Vol] 7.2 g/dL Normal 6.4-8.2 [facility] Comment on above: Performed By: #### 2 4323-8 #### MELISSA WHITEHEAD ([id number]) [facility] ([facility]) [address] [place] [address] 18306 Sodium [Moles/Vol] 134 mmol/L Low 136-145 [facility] Comment on above: Performed By: #### 2 4323-8 #### MELISSA WHITEHEAD ([id number]) [facility] ([facility]) [address] [place], [place] [address] Urea nitrogen [Mass/Vol] 7 mg/dL Normal 6-23 [facility] Comment on above: Performed By: #### 2 4323-8 #### MELISSA WHITEHEAD ([id number]) [facility] ([facility]) [address] [place] [address] HCG.beta subunit Qnon 2023 Interpretation and review of laboratory results Normal [facility] Total HCG measurement is performed using the Marcello Braman Access Immunoassay which detects intact HCG and free beta HCG subunit. This test is not indicated for use as a tumor marker. HCG testing is performed using a different test methodology at [facility] than other bay area hospital. Direct result comparison should only be made within the same method. [facility] PT Coag (PPP) [Time]on 06-23 INR Coag (PPP) [Relative time] 1.9 {INR} High 0.9 - 1.1 [facility] Interpretation and review of laboratory results Abnormal [facility] INR Coag (PPP) [Relative time] 1.9 High 0.9-1.1 [facility] Comment on above: Performed By: #### 2 4323-8 #### MELISSA WHITEHEAD ([id number]) [facility] ([facility]) [address] [place] [address] Protime-INRon 06-24-2023 PT Coag (PPP) [Time] 21.2 s High [facility] Urinalysis complete W Reflex Culture panel (U)on 06-24-2023 Epithelial cells.squamous Auto (Urine sed) [#/Area] 1-9 (SPARSE) Reference range not established. /HPF [facility] Interpretation and review of laboratory results Abnormal [facility] RBC Auto (Urine sed) [#/Area] >20 Abnormal NONE, 1-2, 3-5 /HPF [facility] WBC Auto (Urine sed) [#/Area] 6-10 Abnormal 1-5, NONE /HPF [facility] Appearance (U) Hazy Normal [facility] Comment on above: Performed By: #### 2 4323-8 #### MELISSA WHITEHEAD ([id number]) [facility] ([facility]) [address] [place] [address] Bilirubin (U) [Mass/Vol] Negative Normal NEGATIVE [facility] Comment on above: Performed By: #### 2 4323-8 #### MELISSA WHITEHEAD ([id number]) [facility] ([facility]) [address] [place] [address] Color (U) Idalmis Normal Straw, Yellow [facility] Comment on above: Performed By: #### 2 432-8 #### MELISSA WHITEHEAD ([id number]) [facility] ([facility]) [address] [place] [address] Epithelial cells.squamous Auto (Urine sed) [#/Area] 1-9 (SPARSE) Normal Reference range not established. [facility] Comment on above: Performed By: #### 2 4322-8 #### MELISSA WHITEHEAD ([id number]) [facility] ([facility]) [address] [place], [place] [id number] Glucose Auto test strip (U) [Mass/Vol] Negative Normal NEGATIVE [facility] Comment on above: Performed By: #### 2 432-8 #### MELISSA WHITEHEAD ([id number]) [facility] ([facility]) [address] [place], [place] [address] Ketones (U) [Mass/Vol] 80 (2+) [facility]normal [facility] on above: Performed By: #### 2 432-8 #### MELISSA WHITEHEAD ([id number]) [facility] ([facility]) [address] [place] [address] 49044 Leukocyte esterase Auto test strip Ql (U) Negative Normal NEGATIVE [facility] Comment on above: Performed By: #### 2 432-8 #### MELISSA WHITEHEAD ([id number]) [facility] ([facility]) [address] [place] [address] 75225 Nitrite Auto test strip Ql (U) Negative Normal NEGATIVE [facility] Comment on above: Performed By: #### 2 4323-8 #### MELISSA WHITEHEAD ([id number]) [facility] ([facility]) [address] [place] [address] 22849 pH (U) 6.0 [pH] Normal 5.0, 5.5, 6.0, 6.5, 7.0, 7.5, 8.0 [facility] Comment on above: Performed By: #### 2 4323-8 #### MELISSA WHITEHEAD ([id number]) [facility] ([facility]) [address] [place] [address] 69143 Protein (U) [Mass/Vol] 100 (2+) Normal NEGATIVE [facility] Comment on above: Performed By: #### 2 4322-8 #### MELISSA WHITEHEAD ([id number]) [facility] ([facility]) [address] [place] [address] 27517 RBC (U) [#/Vol] LARGE (3+) Abnormal NEGATIVE [facility] Comment on above: Performed By: #### 2 4322-8 #### MELISSA WHITEHEAD ([id number]) [facility] ([facility]) [address] [place] [address] 09571 RBC Auto (Urine sed) [#/Area] >20 Abnormal NONE, 1-2, 3-5 [facility] Comment on above: Performed By: #### 2 4322-8 #### MELISSA WHITEHEAD ([id number]) [facility] ([facility]) [address] [place] [address] 04407 Specific gravity (U) [Rel density] 1.038 Normal 1.005-1.035 [facility] Comment on above: Performed By: #### 2 4322-8 #### MELISSA WHITEHEAD ([id number]) [facility] ([facility]) [address] [place] [address] 95245 Urobilinogen (U) [Mass/Vol] mg/dL Normal <2.0 [facility] Comment on above: Performed By: #### 2 432-8 #### MELISSA WHITEHEAD ([id number]) [facility] ([facility]) [address] [place] [address] 00636 WBC Auto (Urine sed) [#/Area] 6-10 Abnormal 1-5, NONE [facility] Comment on above: Performed By: #### 2 4323-8 #### MELISSA WHITEHEAD ([id number]) [facility] ([facility]) [address] [place] [address] Urinalysis complete W Reflex Culture panel (U)Ordered By: Jacinta Armenta on 06-24-2023 Appearance (U) Hazy Abnormal Clear [facility] Bilirubin (U) [Mass/Vol] Negative NEGATIVE [facility] Color (U) Idalmis Abnormal Straw, Yellow [facility] Glucose Auto test strip (U) [Mass/Vol] Negative NEGATIVE mg/dL [facility] Interpretation and review of laboratory results Abnormal [facility] Ketones (U) [Mass/Vol] 80 (2+) Abnormal NEGATIVE mg/d L [facility] Leukocyte esterase Auto test strip Ql (U) Negative NEGATIVE [facility] Nitrite Auto test strip Ql (U) Negative NEGATIVE [facility] pH (U) 6.0 [pH] 5.0, 5.5, 6.0, 6.5, 7.0, 7.5, 8.0 [facility] Protein (U) [Mass/Vol] 100 (2+) Abnormal NEGATIVE mg/d L [facility] RBC (U) [#/Vol] LARGE (3+) Abnormal NEGATIVE [facility] Specific gravity (U) [Rel density] 1.038 Abnormal 1.005 - 1.035 [facility] Urobilinogen (U) [Mass/Vol] mg/dL NINF - 2.0 mg/dL [facility] hCG, quantitative, on 06-24-2023 HCG.beta subunit Qn NINF Unive [facility] BETA HCG, QUANTITATIVE FOR E Don 06-22-2023 HCG.beta subunit Qn m[IU]/mL Normal <5.0 [facility] Comment on above: Order Comment: Speci men Type: BLOOD SPECIMEN Ordering Facility: [facility] Address: [address] [place] [address] Result Comment: Nega tive Performed By: #### H CGED #### [facility] CLIA [id number] [address] [place] [address] [place] CBC W Auto Differential pane l (Bld)on 06-22-2023 Basophils (Bld) [#/Vol] 0.03 10*3/uL Normal <0.11 [facility] Comment on above: Order Comment: Speci men Type: BLOOD SPECIMEN Ordering Facility: [facility] Address: [address] [place] [address] Performed By: #### 3 3762-6, 65354-1, 41333-9, 3040-3, HSTNT #### [facility] CLIA [id number] [address] [place] [address] [place] Basophils/100 WBC (Bld) 0.6 % Normal [facility] Comment on above: Order Comment: Speci men Type: BLOOD SPECIMEN Ordering Facility: [facility] Address: [address] [place] [address] Performed By: #### 3 3762-6, 35297-2, 39058-6, 3040-3, HSTNT #### [facility] CLIA [id number] [address] [place] [address] [place] Differential cell count method Nom (Bld) Auto Normal [facility] Comment on above: Order Comment: Speci men Type: BLOOD SPECIMEN Ordering Facility: [facility] Address: [address] [place] [address] Performed By: #### 3 3762-6, 27751-5, 19942-6, 3040-3, HSTNT #### [facility] CLIA [id number] [address] [place] [address] [place] Eosinophils (Bld) [#/Vol] 0.20 10*3/uL Normal <0.46 [facility] Comment on above: Order Comment: Speci men Type: BLOOD SPECIMEN Ordering Facility: [facility] Address: [address] [place] [address] Performed By: #### 3 3762-6, 90002-8, 61654-8, 3040-3, HSTNT #### [facility] CLIA [id number] [address] [place] [address] [place] Eosinophils/100 WBC (Bld) 3.8 % Normal [facility] Comment on above: Order Comment: Speci men Type: BLOOD SPECIMEN Ordering Facility: [facility] Address: [address] [place] [address] Performed By: #### 3 3762-6, 78806-3, 37686-3, 3040-3, HSTNT #### [facility] CLIA [id number] [address] [place] [address] [place] Erythrocyte distribution width (RBC) [Ratio] 14.6 % Normal 11.5-15.0 [facility] Comment on above: Order Comment: Speci men Type: BLOOD SPECIMEN Ordering Facility: [facility] Address: [address] [place] [address] Performed By: #### 3 3762-6, 96005-5, 92098-6, 3040-3, HSTNT #### [facility] CLIA [id number] [address] [place] [address] [place] Hematocrit (Bld) [Volume fraction] 42.1 % Normal 36.0-46.0 [facility] Comment on above: Order Comment: Speci men Type: BLOOD SPECIMEN Ordering Facility: [facility] Address: [address] [place] [address] Performed By: #### 3 3762-6, 51004-9, 38556-5, 3040-3, HSTNT #### [facility] CLIA [id number] [address] [place] [address] [place] Hemoglobin (Bld) [Mass/Vol] 14.0 g/dL Normal 11.5-15.5 [facility] Comment on above: Order Comment: Speci men Type: BLOOD SPECIMEN Ordering Facility: [facility] Address: [address] [place] [address] Performed By: #### 3 3762-6, 75818-6, 01295-2, 3040-3, HSTNT #### [facility] CLIA [id number] [address] [place] [address] [place] Immature granulocytes (Bld) [#/Vol] 10*3/uL Normal <0.10 [facility] Comment on above: Order Comment: Speci men Type: BLOOD SPECIMEN Ordering Facility: [facility] Address: [address] [place] [address] Performed By: #### 3 3762-6, 72865-4, 99084-1, 3040-3, HSTNT #### [facility] CLIA [id number] [address] [place] [facility] Immature granulocytes/100 WBC (Bld) 0.2 % Normal [facility] Comment on above: Order Comment: Speci men Type: BLOOD SPECIMEN Ordering Facility: [facility] Address: [address] [place] [address] Performed By: #### 3 3762-6, 01311-8, 97673-7, 3040-3, HSTNT #### [facility] CLIA [id number] [address] [place] Lymphocytes (Bld) [#/Vol] 2.05 10*3/uL Normal 1.00-4.00 [facility] Comment on above: Order Comment: Speci men Type: BLOOD SPECIMEN Ordering Facility: [facility] Address: [address] [place] [address] Performed By: #### 3 3762-6, 51787-4, 27580-4, 3040-3, HSTNT #### [facility] CLIA [id number] [address] [place] Lymphocytes/100 WBC (Bld) 38.5 % Normal [facility] Comment on above: Order Comment: Speci men Type: BLOOD SPECIMEN Ordering Facility: [facility] Address: [address] [place] [address] Performed By: #### 3 3762-6, 64917-2, 30801-2, 3040-3, HSTNT #### [facility] CLIA [id number] [address] [place] MCH (RBC) [Entitic mass] 28.4 pg Normal 26.0-34.0 [facility] Comment on above: Order Comment: Speci men Type: BLOOD SPECIMEN Ordering Facility: [facility] Address: [address] [place] [address] Performed By: #### 3 3762-6, 21202-7, 27486-5, 3040-3, HSTNT #### [facility] CLIA [id number] [address] [place] MCHC (RBC) [Mass/Vol] 33.3 g/dL Normal 30.5-36.0 [facility] Comment on above: Order Comment: Speci men Type: BLOOD SPECIMEN Ordering Facility: [facility] Address: [address] [place] [address] Performed By: #### 3 3762-6, 07247-5, 59258-0, 3040-3, HSTNT #### [facility] CLIA [id number] [address] MCV (RBC) [Entitic vol] 85.4 fL Normal 80.0-100.0 [facility] Comment on above: Order Comment: Speci men Type: BLOOD SPECIMEN Ordering Facility: [facility] Address: [address] [place] [address] Performed By: #### 3 3762-6, 64138-0, 17474-6, 3040-3, HSTNT #### [facility] CLIA [id number] [address] [place] Monocytes (Bld) [#/Vol] 0.31 10*3/uL Normal <0.87 [facility] Comment on above: Order Comment: Speci men Type: BLOOD SPECIMEN Ordering Facility: [facility] Address: [address] [place] [address] Performed By: #### 3 3762-6, 08173-5, 58331-7, 3040-3, HSTNT #### [facility] CLIA [id number] [address] Monocytes/100 WBC (Bld) 5.8 % Normal [facility] Comment on above: Order Comment: Speci men Type: BLOOD SPECIMEN Ordering Facility: [facility] Address: [address] [place] [address] Performed By: #### 3 3762-6, 44979-2, 81499-9, 3040-3, HSTNT #### [facility] CLIA [id number] [address] [place] [address] [place] Neutrophils (Bld) [#/Vol] 2.72 10*3/uL Normal 1.45-7.50 [facility] Comment on above: Order Comment: Speci men Type: BLOOD SPECIMEN Ordering Facility: [facility] Address: [address] [place] [address] Performed By: #### 3 3762-6, 60377-7, 96441-6, 3040-3, HSTNT #### [facility] CLIA [id number] [address] [place] [address] [place] Neutrophils/100 WBC (Bld) 51.1 % Normal [facility] Comment on above: Order Comment: Speci men Type: BLOOD SPECIMEN Ordering Facility: [facility] Address: [address] [place] [address] Performed By: #### 3 3762-6, 92787-8, 92954-8, 3040-3, HSTNT #### [facility] CLIA [id number] [address] [place] [address] [place] Nucleated RBC (Bld) [#/Vol] 10*3/uL Normal <0.01 [facility] Comment on above: Order Comment: Speci men Type: BLOOD SPECIMEN Ordering Facility: [facility] Address: [address] [place] [address] Performed By: #### 3 3762-6, 95843-5, 18035-0, 3040-3, HSTNT #### [facility] CLIA [id number] [address] [place] [address] [place] Nucleated RBC/100 WBC (Bld) [Ratio] 0.0 /100 WBC Normal [facility] Comment on above: Order Comment: Speci men Type: BLOOD SPECIMEN Ordering Facility: [facility] Address: [address] [place] [address] Performed By: #### 3 3762-6, 49691-8, 54905-9, 3040-3, HSTNT #### [facility] CLIA [id number] [address] [place] [address] [place] Platelet mean volume (Bld) [Entitic vol] 11.4 fL Normal 9.0-12.7 [facility] Comment on above: Order Comment: Speci men Type: BLOOD SPECIMEN Ordering Facility: [facility] Address: [address] [place] [address] Performed By: #### 3 3762-6, 27856-5, 98152-6, 3040-3, HSTNT #### [facility] CLIA [id number] [address] [place] [address] [place] Platelets (Bld) [#/Vol] 210 10*3/uL Normal 150-400 [facility] Comment on above: Order Comment: Speci men Type: BLOOD SPECIMEN Ordering Facility: [facility] Address: [address] [place] [address] Performed By: #### 3 3762-6, 96177-2, 93658-5, 3040-3, HSTNT #### [facility] CLIA [id number] [address] [place] [address] [place] RBC (Bld) [#/Vol] 4.93 10*6/uL Normal 3.90-5.20 [facility] Comment on above: Order Comment: Speci men Type: BLOOD SPECIMEN Ordering Facility: [facility] Address: [address] [place] [address] Performed By: #### 3 3762-6, 50433-8, 64703-6, 3040-3, HSTNT #### [facility] CLIA [id number] [address] [place] [address] [place] WBC (Bld) [#/Vol] 5.32 10*3/uL Normal 3.70-11.00 [facility] Comment on above: Order Comment: Speci men Type: BLOOD SPECIMEN Ordering Facility: [facility] Address: [address] [place] [address] Performed By: #### 3 3762-6, 86261-1, 82552-9, 3040-3, HSTNT #### [facility] CLIA [id number] [address] [place] [address] [place] [address] ABD/PEL W IVCONon 024 CT ABD/PEL W IVCON * * *Final Report* * * DATE OF EXAM: Jun 22 2023 2:12PM [facility] 0530 - CT ABD/PEL W IVCON / PROCEDURE REASON: Abdominal abscess/infection suspected * * * * Physician Interpretation * * * * EXAMINATION: CT ABDOMEN AND PELVIS WITH IV CONTRAST CLINICAL HISTORY: TECHNIQUE: CT of the abdomen and pelvis was performed using standard technique, scanning from just above the dome of the diaphragm to the symphysis pubis. MQ: CTAP_3 Contrast: IV: 100 ml of Omnipaque 350 : ml of CT Radiation dose: Integrated Dose-length product (DLP) for this visit = 149 mGy*cm. CT Dose Reduction Employed: Automated exposure control(AEC) and iterative recon COMPARISON: None. RESULT: Liver: No mass. Biliary: No bile duct dilation. Gallbladder is absent. Spleen: No mass. No splenomegaly. Pancreas: No mass or duct dilation. Adrenals: No mass. Kidneys: No mass, calculus or hydronephrosis. GI tract: No dilation or wall thickening. The appendix is normal. Lymph nodes: No abdominal or pelvic lymphadenopathy. Mesentery/Peritoneum : No ascites or mass. Retroperitoneum: No mass. Vasculature: - Abdominal aorta and iliac arteries: No aneurysm. - Celiac and SMA: Patent without stenosis. - Portal venous system (SMV, splenic vein, portal vein and branches): Patent. - Hepatic veins: Patent. Pelvis: No mass, ascites or fluid collection. A retroverted uterus is present. Bones/Soft Tissues: No significant finding. Lower thorax: Unremarkable. Localizer images: Unremarkable. IMPRESSION: No evidence of an acute intra-abdominal or pelvic process Maintenance Mechanic Telephone: PSCB Transcribe Date/Time: Jun 22 2023 2:23P Dictated by : BRISSA FAIRBANKS MD This examination was interpreted and the report reviewed and electronically signed by: BRISSA FAIRBANKS MD on Jun 22 2023 2:29PM EST [id number] CN Normal [facility] Comprehensive metabolic 2000 panelon 06-22-2023 Albumin [Mass/Vol] 4.4 g/dL Normal 3.9-4.9 [facility] Comment on above: Order Comment: Speci men Type: BLOOD SPECIMEN Ordering Facility: [facility] Address: [address] [place] [place] [id number] Performed By: #### 3 3762-6, 03858-9, 31498-2, 3040-3, HSTNT #### [facility] CLIA [id number] [address] [place] [address] [place] ALP [Catalytic activity/Vol] 61 U/L Normal 34-123 [facility] Comment on above: Order Comment: Speci men Type: BLOOD SPECIMEN Ordering Facility: [facility] Address: [address] [place] [id number] Performed By: #### 3 3762-6, 41438-3, 28448-6, 3040-3, HSTNT #### [facility] CLIA [id number] [address] STATES OF [facility] ALT [Catalytic activity/Vol] 27 U/L Normal 7-38 [facility] Comment on above: Order Comment: Speci men Type: BLOOD SPECIMEN Ordering Facility: [facility] Address: [address] [place] [address] Performed By: #### 3 3762-6, 91739-2, 87332-5, 3040-3, HSTNT #### [facility] CLIA [id number] [address] [place] [address] [place] Anion gap [Moles/Vol] 15 mmol/L Normal 9-18 [facility] Comment on above: Order Comment: Speci men Type: BLOOD SPECIMEN Ordering Facility: [facility] Address: [address] [place] [address] Performed By: #### 3 3762-6, 25644-4, 84071-9, 3040-3, HSTNT #### [facility] CLIA [id number] [address] [place] AST [Catalytic activity/Vol] 18 U/L Normal 13-35 [facility] Comment on above: Order Comment: Speci men Type: BLOOD SPECIMEN Ordering Facility: [facility] Address: [address] [place] [address] Performed By: #### 3 3762-6, 67708-5, 49692-2, 3040-3, HSTNT #### [facility] CLIA [id number] [address] [place] [address] [place] Bilirubin [Mass/Vol] 0.6 mg/dL Normal 0.2-1.3 [facility] Comment on above: Order Comment: Speci men Type: BLOOD SPECIMEN Ordering Facility: [facility] Address: [address] [place] [address] Performed By: #### 3 3762-6, 90875-0, 86970-9, 3040-3, HSTNT #### [facility] CLIA [id number] [address] [place] [address] [place] Calcium [Mass/Vol] 9.1 mg/dL Normal 8.5-10.2 [facility] Comment on above: Order Comment: Speci men Type: BLOOD SPECIMEN Ordering Facility: [facility] Address: [address] [place] [address] Performed By: #### 3 3762-6, 47901-4, 81535-6, 3040-3, HSTNT #### [facility] CLIA [id number] [address] [place] [address] [place] Chloride [Moles/Vol] 99 mmol/L Normal 97-105 [facility] Comment on above: Order Comment: Speci men Type: BLOOD SPECIMEN Ordering Facility: [facility] Address: [address] [place] [address] Performed By: #### 3 3762-6, 97751-0, 86429-3, 3040-3, HSTNT #### [facility] CLIA [id number] [address] [place] [address] [place] CO2 [Moles/Vol] 22 mmol/L Normal 22-30 [facility] Comment on above: Order Comment: Speci men Type: BLOOD SPECIMEN Ordering Facility: [facility] Address: [address] [place] [address] Performed By: #### 3 3762-6, 51335-8, 71488-4, 3040-3, HSTNT #### [facility] CLIA [id number] [address] [place] [address] [place] Creatinine [Mass/Vol] 0.68 mg/dL Normal 0.58-0.96 [facility] Comment on above: Order Comment: Kayli moon Type: BLOOD SPECIMEN Ordering Facility: [facility] Address: [address] [place] [address] Performed By: #### 3 3762-6, 86422-9, 09489-0, 3040-3, HSTNT #### [facility] CLIA [id number] [address] [place] Creatinine and Glomerular filtration rate.predicted panel (S/P/Bld) 128 mL/min/1.73m??? Normal >=60 [facility] Comment on above: Order Comment: Kayli moon Type: BLOOD SPECIMEN Ordering Facility: [facility] Address: [address] [place] [address] Result Comment: Nick mated Glomerular Filtration Rate (eGFR) is calculated using the 2020 CKD-EPI creatinine equation. This equation utilizes serum creatinine, sex, and age as parameters. The creatinine assay has traceable calibration to isotope dilution-mass spectrometry. Refer to KDIGO guidelines for clinical interpretation. In patients with unstable renal function, e.g. those with acute kidney injury, the eGFR may not accurately reflect actual GFR. Performed By: #### 3 3762-6, 67202-5, 57951-1, 3040-3, HSTNT #### [facility] CLIA [id number] [address] [place] Glucose [Mass/Vol] 67 mg/dL Low 74-99 [facility] Comment on above: Order Comment: Kayli moon Type: BLOOD SPECIMEN Ordering Facility: [facility] Address: [address] [place] [address] Result Comment: The [place] Diabetes Association (ADA) provides guidance for cutoff values for fasting glucose and random glucose. The ADA defines fasting as no caloric intake for at least 8 hours. Fasting plasma glucose results between 100 to 125 mg/dL indicate increased risk for diabetes (prediabetes). Fasting plasma glucose results greater than or equal to 126 mg/dL meet the criteria for diagnosis of diabetes. In the absence of unequivocal hyperglycemia, results should be confirmed by repeat testing. In a patient with classic symptoms of hyperglycemia or hyperglycemic crisis, random plasma glucose results greater than or equal to 200 mg/dL meet the criteria for diagnosis of diabetes. Reference: Standards of Medical Care in Diabetes 2016, [place] [employer] Association. Diabetes Care. 2016.39(Suppl 1). Performed By: #### 3 3762-6, 79789-1, 56077-9, 3040-3, HSTNT #### [facility] CLIA [id number] [address] [place] [address] [place] Potassium [Moles/Vol] 3.6 mmol/L Low 3.7-5.1 [facility] Comment on above: Order Comment: Speci men Type: BLOOD SPECIMEN Ordering Facility: [facility] Address: [address] [place] [address] Performed By: #### 3 3762-6, 40523-5, 72562-7, 3040-3, HSTNT #### [facility] CLIA [id number] [address] [place] [address] [place] Protein [Mass/Vol] 6.9 g/dL Normal 6.3-8.0 [facility] Comment on above: Order Comment: Speci men Type: BLOOD SPECIMEN Ordering Facility: [facility] Address: [address] [place] [address] Performed By: #### 3 3762-6, 69435-4, 53334-5, 3040-3, HSTNT #### [facility] CLIA [id number] [address] [place] [address] [place] Sodium [Moles/Vol] 136 mmol/L Normal 136-144 [facility] Comment on above: Order Comment: Speci men Type: BLOOD SPECIMEN Ordering Facility: [facility] Address: [address] [place] [address] Performed By: #### 3 3762-6, 34246-0, 92238-4, 3040-3, HSTNT #### [facility] CLIA [id number] [address] [place] [address] [place] Urea nitrogen [Mass/Vol] 9 mg/dL Normal 7-21 [facility] Comment on above: Order Comment: Speci men Type: BLOOD SPECIMEN Ordering Facility: [facility] Address: [address] [id number] Performed By: #### 3 3762-6, 79923-3, 72009-2, 3040-3, HSTNT #### [facility] CLIA [id number] [address] [place] [address] [facility] ED NOTEon 06-22-2023 ED NOTE HNO ID: [id number] Author: CLAU WHITE, KELLI Service: Nursing Author Type: Registered Nurse Type: ED Notes Filed: 06/22/2023 15:45 Note Text: Pt verbalizes understanding of follow up with PCP and prescriptions x1. Pt stable and ambulatory. IV removed. No further questions at this time. [facility] ED PROV NOTEon 06-22-2023 ED PROV NOTE HNO ID: [id number] Author: MALIA GUTIERREZ DO Service: Emergency Medicine Author Type: Physician Type: ED Provider Notes Filed: 06/22/2023 19:06 Note Text: ED Provider Note Patient Name: Keagan Alicia : 2000 SERVICE DATE: 06/22/23 History Patient presents with: Multiple Concerns: Gallbladder removed 06/17/23 at [facility]. Having issues with infection/pain since. A small blood clot was found on her lung yesterday and was placed on blood thinner (eliquis) She is shaky and still having vomiting. Keagan Alicia is a 22-year-old female who is presenting to the emergency department with multiple concerns. Patient had a cholecystectomy done at [facility] on Friday. She states since this procedure she has had ongoing pain, nausea, vomiting, generalized chills and shakiness. She was readmitted to the hospital at due to some concern for possible bile leak versus infection. She underwent a hepatobiliary scan which was negative for leak. Incidentally she was noted to have a pulmonary embolism on imaging. She was called back for a CTA yesterday which redemonstrated the subsegmental PE. She was placed on Eliquis and discharged home. She continues to have some upper abdominal discomfort, nausea and shakiness. They report some frustrations and wanted a second opinion. Has not had any fevers or chills. No significant changes in symptoms. PAST MEDICAL HISTORY Diagnosis Date - Anemia - Chronic tonsillitis - Depression 10/08/2016 - Gall stone 07/2022 cholecystectomy after delivery - Psychiatric disorder depression, anxiety and PTSD PAST SURGICAL HISTORY Procedure Laterality Date - CHOLECYSTECTOMY HX 06/17/2023 [facility] - TONSILLECTOMY HX FAMILY HISTORY Problem Relation Age of Onset - other (migraines) Mother - None Father - Ovarian cancer Maternal Grandmother Social History Tobacco Use - Smoking status: Never Passive exposure: Yes - Smokeless tobacco: Never - Tobacco comments: Vapes Vaping Use - Vaping Use: current everyday user - Substances: Nicotine Substance and Sexual Activity - Alcohol use: No - Drug use: No - Sexual activity: Yes Partners: Male ALLERGIES No Known Allergies Review of Systems Constitutional: Negative for chills and fever. HENT: Negative for congestion, rhinorrhea and sore throat. Respiratory: Negative for cough and shortness of breath. Cardiovascular: Negative for chest pain, palpitations and leg swelling. Gastrointestinal: Positive for abdominal pain, nausea and vomiting. Negative for diarrhea. Genitourinary: Negative for dysuria and hematuria. Musculoskeletal: Negative for back pain. Skin: Negative for pallor, rash and wound. Neurological: Positive for tremors. Negative for headaches. Psychiatric/Behavior al: Negative for confusion. Physical Exam Vitals [06/22/23 1213] BP Pulse Temp Temp src Resp SpO2 Weight Height 118/71 90 36.2 ?C (97.2 ?F) Oral 16 100 % 55.6 kg (122 lb 9.2 oz) -- Physical Exam Vitals and nursing note reviewed. Constitutional: General: She is not in acute distress. Appearance: She is well-developed. HENT: Head: Normocephalic and atraumatic. Right Ear: External ear normal. Left Ear: External ear normal. Eyes: General: No scleral icterus. Right eye: No discharge. Left eye: No discharge. Conjunctiva/sclera: Conjunctivae normal. Pupils: Pupils are equal, round, and reactive to light. Cardiovascular: Rate and Rhythm: Normal rate and regular rhythm. Heart sounds: No murmur heard. No friction rub. No gallop. Pulmonary: Effort: Pulmonary effort is normal. No respiratory distress. Breath sounds: Normal breath sounds. No wheezing or rales. Chest: Chest wall: No tenderness. Abdominal: General: Bowel sounds are normal. There is no distension. Palpations: Abdomen is soft. There is no mass. Tenderness: There is generalized abdominal tenderness. There is no guarding or rebound. Comments: Patient reports tenderness generally through her abdomen. No particular pain in the right upper quadrant. No guarding, distention or rigidity. Musculoskeletal: General: No tenderness or deformity. Normal range of motion. Cervical back: Normal range of motion and neck supple. Lymphadenopathy: Cervical: No cervical adenopathy. Skin: General: Skin is warm and dry. Coloration: Skin is not pale. Findings: No erythema or rash. Neurological: Mental Status: She is alert and oriented to person, place, and time. Diagnostic Testing ED Labs Ordered and Reviewed - No data to display Procedures ED Course / Clinical Impression Clinical Impressions as of 06/22/23 190 Nausea S/P laparoscopic cholecystectomy MDM / Disposition / Plan Keagan Alicia is a 22-year-old female who is presenting to the emergency department with nausea. Patient is status postcholecystectomy. She was seen multiple times since her surgery for similar comp (more content not included)... Normal [facility] FLUABV+SARS-CoV-2+RSV Pnl Re sp SHYAM+probeon 06-22-2023 FLUABV+SARS-CoV-2+RSV Pnl Resp SHYAM+probe COVID 19 RESULT: Not detected The method used is RT-PCR or an equivalent NAAT method. Reference Range(the expected result in uninfected individuals): Not detected INFLUENZA A PCR: Not detected INFLUENZA B PCR: Not detected RSV PCR: Not detected Normal [facility] Comment on above: Performed By: #### 9 5941-1 #### [facility] CLIA [id number] [address] [place] [address] [place] Gas and Carbon monoxide pane l (BldV)on 06-22-2023 BASE DEFICIT, VENOUS -2 mmol/L Normal -2-0 [facility] Comment on above: Order Comment: Speci men Type: VENOUS BLOOD SPECIMEN Ordering Facility: [facility] Address: [address] [place] [address] Performed By: #### 2 4344-4 #### [facility] CLIA [id number] [facility] [address] [address] Carboxyhemoglobin (BldV) [Mass fraction] <1.0 Normal 0.0-2.0 [facility] Comment on above: Order Comment: Speci men Type: VENOUS BLOOD SPECIMEN Ordering Facility: [facility] Address: [address] [place], [place] [id number] Result Comment: Carb oxyhemoglobin Reference Range for Smokers: 2.0-8.0% Performed By: #### 2 4344-4 #### [facility] CLIA [id number] [facility] [address] [address] CO2 (BldV) [Partial pressure] 43 mm[Hg] Normal 42-55 [facility] Comment on above: Order Comment: Speci men Type: VENOUS BLOOD SPECIMEN Ordering Facility: [facility] Address: [address] [place] [address] Performed By: #### 2 4344-4 #### [facility] CLIA [id number] [facility] [address] [address] CO2 adjusted to patient's actual temperature (BldV) [Partial pressure] Normal [facility] Comment on above: Order Comment: Speci men Type: VENOUS BLOOD SPECIMEN Ordering Facility: [facility] Address: [address] [place] [address] Performed By: #### 2 4344-4 #### [facility] CLIA [id number] [facility] [address] [address] HCO3 (Bld) [Moles/Vol] 23 mmol/L Low 24-28 [facility] Comment on above: Order Comment: Speci men Type: VENOUS BLOOD SPECIMEN Ordering Facility: [facility] Address: [address] [place] [address] Performed By: #### 2 4344-4 #### [facility] CLIA [id number] [facility] [address] [address] Hemoglobin (Bld) [Mass/Vol] 14.7 g/dL Normal 11.5-15.5 [facility] Comment on above: Order Comment: Speci men Type: VENOUS BLOOD SPECIMEN Ordering Facility: [facility] Address: [address] [place] [address] Performed By: #### 2 4344-4 #### [facility] CLIA [id number] [facility] [address] [address] Lactate [Moles/Vol] 1.0 mmol/L Normal 0.5-2.2 [facility] Comment on above: Order Comment: Speci men Type: VENOUS BLOOD SPECIMEN Ordering Facility: [facility] Address: [address] [place] [id number] Performed By: #### 2 4344-4 #### [facility] CLIA [id number] [facility] [address] [address] Methemoglobin (Bld) [Mass fraction] % Normal 0.0-1.5 [facility] Comment on above: Order Comment: Speci men Type: VENOUS BLOOD SPECIMEN Ordering Facility: [facility] Address: [address] [place] [address] Performed By: #### 2 4344-4 #### [facility] CLIA [id number] [facility] [address] [address] O2 THERAPY RA=Room Air Normal [facility] Comment on above: Order Comment: Speci men Type: VENOUS BLOOD SPECIMEN Ordering Facility: [facility] Address: [address] [place] [address] Performed By: #### 2 4344-4 #### [facility] CLIA [id number] [facility] [address] [address] Oxygen (BldV) [Partial pressure] mm[Hg] Low 35-45 [facility] Comment on above: Order Comment: Speci men Type: VENOUS BLOOD SPECIMEN Ordering Facility: [facility] Address: [address] [place] [id number] Performed By: #### 2 4344-4 #### [facility] CLIA [id number] [facility] [address] [address] Oxygen adjusted to patient's actual temperature (BldV) [Partial pressure] Normal [facility] Comment on above: Order Comment: Speci men Type: VENOUS BLOOD SPECIMEN Ordering Facility: [facility] Address: [address] [place] [address] Performed By: #### 2 4344-4 #### [facility] CLIA [id number] [facility] [address] [address] Oxyhemoglobin (BldV) [Mass fraction] 43 % Low 60-85 [facility] Comment on above: Order Comment: Speci men Type: VENOUS BLOOD SPECIMEN Ordering Facility: [facility] Address: [address] [place] [address] Performed By: #### 2 4344-4 #### [facility] CLIA [id number] [facility] [address] [address] pH (BldV) 7.35 [pH] Normal 7.32-7.42 [facility] Comment on above: Order Comment: Speci men Type: VENOUS BLOOD SPECIMEN Ordering Facility: [facility] Address: [address] [place] [address] Performed By: #### 2 4344-4 #### [facility] CLIA [id number] [facility] [address] [address] pH adjusted to patient's actual temperature (BldV) Normal [facility] Comment on above: Order Comment: Speci men Type: VENOUS BLOOD SPECIMEN Ordering Facility: [facility] Address: [address] [place] [address] Performed By: #### 2 4344-4 #### [facility] CLIA [id number] [facility] [address] [address] Potassium [Moles/Vol] 3.4 mmol/L Low 3.5-5.0 [facility] Comment on above: Order Comment: Speci men Type: VENOUS BLOOD SPECIMEN Ordering Facility: [facility] Address: [address] [place] [address] Performed By: #### 2 4344-4 #### [facility] CLIA [id number] [facility] [address] [address] HIGH SENSITIVITY TROPONIN To n 06-22-2023 Troponin T.cardiac High sensitivity method [Mass/Vol] <6 Normal <12 [facility] Comment on above: Order Comment: Kayli moon Type: BLOOD SPECIMEN Ordering Facility: [facility] Address: [address] [place] [address] Result Comment: When assessing risk for acute coronary syndromes: In patients undergoing blood draw greater than or equal to 2 hours from symptom onset, with history of very low to moderate risk and non-ischemic ECG, an initial hs-Troponin T less than 12 ng/L AND a 1 hour delta hs-Troponin T less than 3 ng/L should be considered very low risk for 30 day MACE. Performed By: #### 3 3762-6, 04790-9, 67227-3, 3040-3, HSTNT #### [facility] CLIA [id number] [address] [place] [address] [place] Lipase SerPl-cCncon 06-22-19 24 Lipase [Catalytic activity/Vol] 32 U/L Normal 16-61 [facility] Comment on above: Order Comment: Kayli moon Type: BLOOD SPECIMEN Ordering Facility: [facility] Address: [address] [place] [address] Performed By: #### 3 3762-6, 37966-3, 14661-0, 3040-3, HSTNT #### [facility] CLIA [id number] [address] [place] [address] [place] Magnesium SerPl-mCncon 06-21 Magnesium [Mass/Vol] 1.7 mg/dL Normal 1.7-2.3 [facility] Comment on above: Order Comment: Kayli moon Type: BLOOD SPECIMEN Ordering Facility: [facility] Address: [address] [place] [address] Performed By: #### 3 3762-6, 92593-2, 21347-4, 3040-3, HSTNT #### [facility] CLIA [id number] [address] [place] [address] [place] NT-proBNP SerPl-mCncon 06-21 Natriuretic peptide.B prohormone N-Terminal [Mass/Vol] 75 pg/mL Normal <125 [facility] Comment on above: Order Comment: Speci men Type: BLOOD SPECIMEN Ordering Facility: [facility] Address: [address] [place] [address] Performed By: #### 3 3762-6, 60186-4, 11482-9, 3040-3, HSTNT #### [facility] CLIA [id number] [address] Urinalysis complete panel (U )on 06-22-2023 Bacteria LM.HPF (Urine sed) [#/Area] Few Abnormal None Seen [facility] Comment on above: Order Comment: Speci men Type: URINE SPECIMEN Ordering Facility: [facility] Address: [address] [place] [address] Performed By: #### 2 4356-8 #### [facility] CLIA [id number] [address] Bilirubin Ql (U) 1+ Abnormal Negative [facility] Comment on above: Order Comment: Speci men Type: URINE SPECIMEN Ordering Facility: [facility] Address: [address] [place] [address] Result Comment: Sugg est correlation with clinical findings and serum bilirubin if clinically indicated. Performed By: #### 2 4356-8 #### [facility] CLIA [id number] [address] Clarity (Unsp spec) Clear Normal Clear [facility] Comment on above: Order Comment: Speci men Type: URINE SPECIMEN Ordering Facility: [facility] Address: [address] [place] [address] Performed By: #### 2 4356-8 #### [facility] CLIA [id number] [address] Color (U) Yellow Normal Yellow [facility] Comment on above: Order Comment: Speci men Type: URINE SPECIMEN Ordering Facility: [facility] Address: [address] [place] [address] Performed By: #### 2 4356-8 #### [facility] CLIA [id number] [address] [place] [address] [place] Epithelial cells LM.HPF (Urine sed) [#/Area] Moderate Normal [facility] Comment on above: Order Comment: Speci men Type: URINE SPECIMEN Ordering Facility: [facility] Address: [address] [place] [address] Performed By: #### 2 4356-8 #### [facility] CLIA [id number] [address] [place] [address] [facility] Glucose Test strip (U) [Mass/Vol] Negative Normal Negative [facility] Comment on above: Order Comment: Speci men Type: URINE SPECIMEN Ordering Facility: [facility] Address: [address] [place] [address] Performed By: #### 2 4356-8 #### [facility] CLIA [id number] [address] [place] Hemoglobin Ql (U) Trace Abnormal Negative [facility] Comment on above: Order Comment: Speci men Type: URINE SPECIMEN Ordering Facility: [facility] Address: [address] [place] [address] Performed By: #### 2 4356-8 #### [facility] CLIA [id number] [address] [place] Ketones Ql (U) 3+ Abnormal Negative [facility] Comment on above: Order Comment: Speci men Type: URINE SPECIMEN Ordering Facility: [facility] Address: [address] [place] [address] Performed By: #### 2 4356-8 #### [facility] CLIA [id number] [address] [place] [address] [facility] Leukocyte esterase Test strip Ql (U) Negative Normal Negative [facility] Comment on above: Order Comment: Speci men Type: URINE SPECIMEN Ordering Facility: [facility] Address: [address] [place] [address] Performed By: #### 2 4356-8 #### [facility] CLIA [id number] [address] [place] [address] [place] Nitrite Ql (U) Negative Normal Negative [facility] Comment on above: Order Comment: Speci men Type: URINE SPECIMEN Ordering Facility: [facility] Address: [address] [place] [address] Performed By: #### 2 4356-8 #### [facility] CLIA [id number] [address] pH (U) 6.0 [pH] Normal 5.0-8.0 [facility] Comment on above: Order Comment: Speci men Type: URINE SPECIMEN Ordering Facility: [facility] Address: [address] [place] [address] Performed By: #### 2 4356-8 #### [facility] CLIA [id number] [address] Protein (U) [Mass/Vol] Negative Normal Negative [facility] Comment on above: Order Comment: Speci men Type: URINE SPECIMEN Ordering Facility: [facility] Address: [address] [place] [address] Performed By: #### 2 4356-8 #### [facility] CLIA [id number] [address] [place] [facility] RBC LM.HPF (Urine sed) [#/Area] 0-3 /HPF Normal 0-3 /HPF [facility] Comment on above: Order Comment: Speci men Type: URINE SPECIMEN Ordering Facility: [facility] Address: [address] [place] [address] Performed By: #### 2 4356-8 #### [facility] CLIA [id number] [address] Specific gravity (U) [Rel density] 1.025 Normal 1.005-1.030 [facility] Comment on above: Order Comment: Speci men Type: URINE SPECIMEN Ordering Facility: [facility] Address: [address] [place] [address] Performed By: #### 2 4356-8 #### [facility] CLIA [id number] [address] Urobilinogen Ql (U) 0.2 EU/dL Normal 0.2-1.0 EU/dL [facility] Comment on above: Order Comment: Speci men Type: URINE SPECIMEN Ordering Facility: [facility] Address: [address] [place] [address] Performed By: #### 2 4356-8 #### [facility] CLIA [id number] [address] [place] WBC LM.HPF (Urine sed) [#/Area] 0-5 /HPF Normal 0-5 /HPF [facility] Comment on above: Order Comment: Speci men Type: URINE SPECIMEN Ordering Facility: [facility] Address: [address] [place] [address] Performed By: #### 2 4356-8 #### [facility] CLIA [id number] [address] [place] CBC W Auto Differential pane l (Bld)on 06-21-2023 Basophils (Bld) [#/Vol] 0.03 10*3/uL [facility] Basophils/100 WBC (Bld) 0.6 % 0.0 - 2.0 % [facility] Eosinophils (Bld) [#/Vol] 0.08 10*3/uL [facility] Eosinophils/100 WBC (Bld) 1.6 % 0.0 - 6.0 % [facility] Erythrocyte distribution width (RBC) [Ratio] 14.7 % High 11.5 - 14.5 % [facility] Hematocrit (Bld) [Volume fraction] 44.4 % 36.0 - 46.0 % [facility] Hemoglobin (Bld) [Mass/Vol] 14.5 g/dL 12.0 - 16.0 g/dL [facility] Immature granulocytes (Bld) [#/Vol] 0.01 10*3/uL [facility] Immature granulocytes/100 WBC (Bld) 0.2 % 0.0 - 0.9 % [facility] Comment on above: Immature Granulocyte Count (IG) includes promyelocytes, myelocytes and metamyelocytes but does not include bands. Percent differential counts (%) should be interpreted in the context of the absolute cell counts (cells/UL). Interpretation and review of laboratory results Abnormal [facility] Lymphocytes (Bld) [#/Vol] 1.85 10*3/uL [facility] Lymphocytes/100 WBC (Bld) 36.6 % 13.0 - 44.0 % [facility] MCH (RBC) [Entitic mass] 28.1 pg 26.0 - 34.[address] [facility] MCHC (RBC) [Mass/Vol] 32.7 g/dL 32.0 - 36.0 g/dL [facility] MCV (RBC) [Entitic vol] 86 fL 80 - [address] [facility] Monocytes (Bld) [#/Vol] 0.32 10*3/uL [facility] Monocytes/100 WBC (Bld) 6.3 % 2.0 - 10.0 % [facility] Neutrophils (Bld) [#/Vol] 2.77 10*3/uL [facility] Comment on above: Percent differential counts (%) should be interpreted in the context of the absolute cell counts (cells/uL). Neutrophils/100 WBC (Bld) 54.7 % 40.0 - 80.0 % [facility] Nucleated RBC/100 WBC (Bld) [Ratio] 0.0 % [facility] Platelets (Bld) [#/Vol] 199 10*3/uL [facility] RBC (Bld) [#/Vol] 5.16 10*6/uL [facility] WBC (Bld) [#/Vol] 5.1 10*3/uL [facility] Basophils (Bld) [#/Vol] 0.03 x10*3/uL Normal 0.00-0.10 [facility] Comment on above: Performed By: #### 5 8077-9 #### MELISSA WHITEHEAD ([id number]) [facility] ([facility]) [address] [place] [address] Basophils/100 WBC (Bld) 0.6 % Normal 0.0-2.0 [facility] Comment on above: Performed By: #### 5 8077-9 #### MELISSA WHITEHEAD ([id number]) [facility] ([facility]) [address] [place] [address] Eosinophils (Bld) [#/Vol] 0.08 x10*3/uL Normal 0.00-0.70 [facility] Comment on above: Performed By: #### 5 8077-9 #### MELISSA WHITEHEAD ([id number]) [facility] ([facility]) [address] [place] [address] Eosinophils/100 WBC (Bld) 1.6 % Normal 0.0-6.0 [facility] Comment on above: Performed By: #### 5 8077-9 #### MELISSA WHITEHEAD ([id number]) [facility] ([facility]) [address] [place] [address] Erythrocyte distribution width (RBC) [Ratio] 14.7 % High 11.5-14.5 [facility] Comment on above: Performed By: #### 5 8077-9 #### MELISSA WHITEHEAD ([id number]) [facility] ([facility]) [address] [place] [address] Hematocrit (Bld) [Volume fraction] 44.4 % Normal 36.0-46.0 [facility] Comment on above: Performed By: #### 5 8077-9 #### MELISSA WHITEHEAD ([id number]) [facility] ([facility]) [address] [place] [address] Hemoglobin (Bld) [Mass/Vol] 14.5 g/dL Normal 12.0-16.0 [facility] Comment on above: Performed By: #### 5 8077-9 #### MELISSA [facility]HEAD ([id number]) [facility] ([facility]) [address] [place] [address] Immature granulocytes (Bld) [#/Vol] 0.01 x10*3/uL Normal 0.00-0.70 [facility] Comment on above: Performed By: #### 5 8077-9 #### MELISSA WHITEHEAD ([id number]) [facility] ([facility]) [address] [place] [address] Immature granulocytes/100 WBC (Bld) 0.2 % Normal 0.0-0.9 [facility] Comment on above: Result Comment: Betty ture Granulocyte Count (IG) includes promyelocytes, myelocytes and metamyelocytes but does not include bands. Percent differential counts (%) should be interpreted in the context of the absolute cell counts (cells/UL). Performed By: #### 5 8077-9 #### MELISSA WHITEHEAD ([id number]) [facility] ([facility]) [address] [place] [address] Lymphocytes (Bld) [#/Vol] 1.85 x10*3/uL Normal 1.20-4.80 [facility] Comment on above: Performed By: #### 5 8077-9 #### MELISSA WHITEHEAD ([id number]) [facility] ([facility]) [address] [place], [place] [address] Lymphocytes/100 WBC (Bld) 36.6 % Normal 13.0-44.0 [facility] Comment on above: Performed By: #### 5 8077-9 #### MELISSA WHITEHEAD ([id number]) [facility] ([facility]) [address] [place] [address]3418 MCH (RBC) [Entitic mass] 28.1 pg Normal 26.0-34.0 [facility] Comment on above: Performed By: #### 5 8077-9 #### MELISSA WHITEHEAD ([id number]) [facility] ([facility]) [address] [place] [address]4612 MCHC (RBC) [Mass/Vol] 32.7 g/dL Normal 32.0-36.0 [facility] Comment on above: Performed By: #### 5 8077-9 #### MELISSA WHITEHEAD ([id number]) [facility] ([facility]) [address] [place] [address]8938 MCV (RBC) [Entitic vol] 86 fL Normal 80-100 [facility] Comment on above: Performed By: #### 5 8077-9 #### MELISSA WHITEHEAD ([id number]) [facility] ([facility]) [address] [place] [address]3436 Monocytes (Bld) [#/Vol] 0.32 x10*3/uL Normal 0.10-1.00 [facility] Comment on above: Performed By: #### 5 8077-9 #### MELISSA WHITEHEAD ([id number]) [facility] ([facility]) [address] [place] [address] Monocytes/100 WBC (Bld) 6.3 % Normal 2.0-10.0 [facility] Comment on above: Performed By: #### 5 8077-9 #### MELISSA WHITEHEAD ([id number]) [facility] ([facility]) [address] [place] [address] 34067 Neutrophils (Bld) [#/Vol] 2.77 x10*3/uL Normal 1.20-7.70 [facility] Comment on above: Result Comment: Perc ent differential counts (%) should be interpreted in the context of the absolute cell counts (cells/uL). Performed By: #### 5 8077-9 #### MELISSA WHITEHEAD ([id number]) [facility] ([facility]) [address] [place] [address] 47097 Neutrophils/100 WBC (Bld) 54.7 % Normal 40.0-80.0 [facility] Comment on above: Performed By: #### 5 8077-9 #### MELISSA WHITEHEAD ([id number]) [facility] ([facility]) [address] [place] [address] 60969 Nucleated RBC/100 WBC (Bld) [Ratio] 0.0 /100 WBCs Normal 0.0-0.0 [facility] Comment on above: Performed By: #### 5 8077-9 #### MELISSA WHITEHEAD ([id number]) [facility] ([facility]) [address] [place] [address] 28493 Platelets (Bld) [#/Vol] 199 x10*3/uL Normal 150-450 [facility] Comment on above: Performed By: #### 5 8077-9 #### MELISSA WHITEHEAD ([id number]) [facility] ([facility]) [address] [place] [address] 40826 RBC (Bld) [#/Vol] 5.16 x10*6/uL Normal 4.00-5.20 [facility] Comment on above: Performed By: #### 5 8077-9 #### MELISSA VENTURA ([id number]) [facility] ([facility]) [address] [place] [address] WBC (Bld) [#/Vol] 5.1 x10*3/uL Normal 4.4-11.3 [facility] Comment on above: Performed By: #### 5 8077-9 #### MELISSA VENTURA ([id number]) [facility] ([facility]) [address] [place] [id number] CT ANGIO CHEST FOR PULMONARY EMBOLISMon 06-21-2023 CT ANGIO CHEST FOR PULMONARY EMBOLISM Interpreted By: Rosa Chavarria, STUDY: CT ANGIO CHEST FOR PULMONARY EMBOLISM; 06/21/2023 9:16 am INDICATION: Signs/Symptoms:dyspn ea. History of laparoscopic cholecystectomy on 06/17/2023 with subsegmental pulmonary embolus demonstrated in right lower lobe on CT examination of abdomen and pelvis from 06/19/2023 COMPARISON: None.. ACCESSION NUMBER(S): [id number] ORDERING CLINICIAN: SATURNINO VELÁZQUEZ TECHNIQUE: CT angiography (non-coronary) of the chest was performed with Intravenous contrast material along with 3D (maximum intensity projection - MIP) image post processing and coronal reformatted images. 72 ml Omnipaque 350 was injected intravenously. FINDINGS: The bolus is of adequate quality for diagnosis of pulmonary embolism. Pulmonary arteries: Confirmed is the presence of a non occluding embolus within a subsegmental branch supplying the posterior basal segment of right lower lobe. No additional pulmonary emboli are seen. No central pulmonary emboli are present. There is no large embolic burden identified. Aorta: No sign of aortic aneurysm or aortic dissection. Heart: Unremarkable. No pericardial effusion. No right heart strain is observed. Lymph nodes: No pathologically enlarged lymph nodes are noted. Lungs: There are no infiltrates. Lungs are clear. No pulmonary infarct is seen. Pleural spaces: There is no significant pleural effusion or pneumothorax. Bones: Unremarkable. Upper abdomen: Free intraperitoneal air is seen within upper abdomen as a result of the recent laparoscopic cholecystectomy. There are surgical clips within gallbladder fossa. IMPRESSION: Confirmed is the presence of a non occluding embolus within a subsegmental branch supplying right lower lobe as noted on CT examination of abdomen and pelvis from 06/19/2023. No additional pulmonary emboli are seen. No right heart failure. Free intraperitoneal air secondary to recent laparoscopic cholecystectomy. Results were communicated via secure chat to Dr. Velázquez at 9:33 a.m. on 06/21/2023. The secure chat was acknowledged by Dr. Velázquez at 9:34 a.m.. Signed by: Rosa Chavarria 06/21/2023 9:34 AM Dictation workstation: [id number] [facility] CT Chest W contrast IV and C T angiogram Pulmonary arteries for pulmonary embolus W contrast Anjali 06-21-2023 Confirmed is the presence of a non occluding embolus within a subsegmental branch supplying right lower lobe as noted on CT examination of abdomen and pelvis from 06/19/2023. No additional pulmonary emboli are seen. No right heart failure. Free intraperitoneal air secondary to recent laparoscopic cholecystectomy. Results were communicated via secure chat to Dr. Velázquez at 9:33 a.m. on 06/21/2023. The secure chat was acknowledged by Dr. Velázquez at 9:34 a.m.. Signed by: Rosa Chavarria 06/21/2023 9:34 AM Dictation workstation: [id number] [facility] Interpreted By: Rosa Cahvarria, STUDY: CT ANGIO CHEST FOR PULMONARY EMBOLISM; 06/21/2023 9:16 am INDICATION: Signs/Symptoms:dyspn ea. History of laparoscopic cholecystectomy on 06/17/2023 with subsegmental pulmonary embolus demonstrated in right lower lobe on CT examination of abdomen and pelvis from 06/19/2023 COMPARISON: None.. ACCESSION NUMBER(S): [id number] ORDERING CLINICIAN: SATURNINO VELÁZQUEZ TECHNIQUE: CT angiography (non-coronary) of the chest was performed with Intravenous contrast material along with 3D (maximum intensity projection - MIP) image post processing and coronal reformatted images. 72 ml Omnipaque 350 was injected intravenously. FINDINGS: The bolus is of adequate quality for diagnosis of pulmonary embolism. Pulmonary arteries: Confirmed is the presence of a non occluding embolus within a subsegmental branch supplying the posterior basal segment of right lower lobe. No additional pulmonary emboli are seen. No central pulmonary emboli are present. There is no large embolic burden identified. Aorta: No sign of aortic aneurysm or aortic dissection. Heart: Unremarkable. No pericardial effusion. No right heart strain is observed. Lymph nodes: No pathologically enlarged lymph nodes are noted. Lungs: There are no infiltrates. Lungs are clear. No pulmonary infarct is seen. Pleural spaces: There is no significant pleural effusion or pneumothorax. Bones: Unremarkable. Upper abdomen: Free intraperitoneal air is seen within upper abdomen as a result of the recent laparoscopic cholecystectomy. There are surgical clips within gallbladder fossa. MMODAL Rosa Chavarria MD - 06/21/2023 Interpreted By: Rosa Chavarria, STUDY: CT ANGIO CHEST FOR PULMONARY EMBOLISM; 06/21/2023 9:16 am INDICATION: Signs/Symptoms:dyspn ea. History of laparoscopic cholecystectomy on 06/17/2023 with subsegmental pulmonary embolus demonstrated in right lower lobe on CT examination of abdomen and pelvis from 06/19/2023 COMPARISON: None.. ACCESSION NUMBER(S): [id number] ORDERING CLINICIAN: SATURNINO VELÁZQUEZ TECHNIQUE: CT angiography (non-coronary) of the chest was performed with Intravenous contrast material along with 3D (maximum intensity projection - MIP) image post processing and coronal reformatted images. 72 ml Omnipaque 350 was injected intravenously. FINDINGS: The bolus is of adequate quality for diagnosis of pulmonary embolism. Pulmonary arteries: Confirmed is the presence of a non occluding embolus within a subsegmental branch supplying the posterior basal segment of right lower lobe. No additional pulmonary emboli are seen. No central pulmonary emboli are present. There is no large embolic burden identified. Aorta: No sign of aortic aneurysm or aortic dissection. Heart: Unremarkable. No pericardial effusion. No right heart strain is observed. Lymph nodes: No pathologically enlarged lymph nodes are noted. Lungs: There are no infiltrates. Lungs are clear. No pulmonary infarct is seen. Pleural spaces: There is no significant pleural effusion or pneumothorax. Bones: Unremarkable. Upper abdomen: Free intraperitoneal air is seen within upper abdomen as a result of the recent laparoscopic cholecystectomy. There are surgical clips within gallbladder fossa. IMPRESSION: Confirmed is the presence of a non occluding embolus within a subsegmental branch supplying right lower lobe as noted on CT examination of abdomen and pelvis from 06/19/2023. No additional pulmonary emboli are seen. No right heart failure. Free intraperitoneal air secondary to recent laparoscopic cholecystectomy. Results were communicated via secure chat to Dr. Velázquez at 9:33 a.m. on 06/21/2023. The secure chat was acknowledged by Dr. Velázquez at 9:34 a.m.. Signed by: Rosa Chavarria 06/21/2023 9:34 AM Dictation workstation: [id number] [facility] Work Phone: Radiology Study observation (narrative) [facility] Work Phone: CT Chest W contrast IV and C T angiogram Pulmonary arteries for pulmonary embolus W contrast IVOrdered By: Rosa Chavarria on 06-21-2023 [facility] Work Phone: Comprehensive metabolic 2000 panelon 06-21-2023 Albumin BCP dye [Mass/Vol] 4.6 g/dL 3.4 - 5.0 g/dL [facility] ALP [Catalytic activity/Vol] 57 U/L 33 - 110 U/L [facility] ALT With P-5'-P [Catalytic activity/Vol] 36 U/L 7 - 45 U/L [facility] Comment on above: Patients treated wit h Sulfasalazine may generate falsely decreased results for ALT. Anion gap [Moles/Vol] 17 mmol/L 10 - 20 mmol/L [facility] AST With P-5'-P [Catalytic activity/Vol] 16 U/L 9 - 39 U/L [facility] Bilirubin [Mass/Vol] 0.8 mg/dL 0.0 - 1.2 mg/dL [facility] Calcium [Mass/Vol] 9.1 mg/dL 8.6 - 10. 3 mg/dL [facility] Chloride [Moles/Vol] 100 mmol/L 98 - 107 mmol/L [facility] CO2 [Moles/Vol] 20 mmol/L Low 21 - 32 mmol/L [facility] Creatinine [Mass/Vol] 0.81 mg/dL 0.50 - 1.05 mg/dL [facility] eGFR - PINF [facility] Comment on above: Calculations of nick mated GFR are performed using the 2020 CKD-EPI Study Refit equation without the race variable for the IDMS-Traceable creatinine methods. https://jasn.asnjournals.org/content/early/ASN.2020 871759 Glucose [Mass/Vol] 68 mg/dL Low 74 - 99 mg/dL [facility] Interpretation and review of laboratory results Abnormal [facility] Potassium [Moles/Vol] 3.6 mmol/L 3.5 - 5.3 mmol/L [facility] Protein [Mass/Vol] 6.6 g/dL 6.4 - 8.2 g/dL [facility] Sodium [Moles/Vol] 133 mmol/L Low 136 - 145 mmol/L [facility] Urea nitrogen [Mass/Vol] 10 mg/dL 6 - 23 mg/dL [facility] Albumin BCP dye [Mass/Vol] 4.6 g/dL Normal 3.4-5.0 [facility] Comment on above: Performed By: #### 5 8077-9 #### MELISSA WHITEHEAD ([id number]) [facility] ([facility]) [address] [place] [address] 29264 ALP [Catalytic activity/Vol] 57 U/L Normal 33-110 [facility] Comment on above: Performed By: #### 5 8077-9 #### MELISSA WHITEHEAD ([id number]) [facility] ([facility]) [address] [place] [address] 69835 ALT With P-5'-P [Catalytic activity/Vol] 36 U/L Normal 7-45 [facility] Comment on above: Result Comment: Gema ents treated with Sulfasalazine may generate falsely decreased results for ALT. Performed By: #### 5 8077-9 #### MELISSA WHITEHEAD ([id number]) [facility] ([facility]) [address] [place] [address] 83391 Anion gap [Moles/Vol] 17 mmol/L Normal 10-20 [facility] Comment on above: Performed By: #### 5 8077-9 #### MELISSA WHITEHEAD ([id number]) [facility] ([facility]) [address] [place] [address] AST With P-5'-P [Catalytic activity/Vol] 16 U/L Normal 9-39 [facility] Comment on above: Performed By: #### 5 8077-9 #### MELISSA WHITEHEAD ([id number]) [facility] ([facility]) [address] [place] [address] Bilirubin [Mass/Vol] 0.8 mg/dL Normal 0.0-1.2 [facility] Comment on above: Performed By: #### 5 8077-9 #### MELISSA WHITEHEAD ([id number]) [facility] ([facility]) [address] [place] [address] 69463 Calcium [Mass/Vol] 9.1 mg/dL Normal 8.6-10.3 [facility] Comment on above: Performed By: #### 5 8077-9 #### MELISSA WHITEHEAD ([id number]) [facility] ([facility]) [address] [place] [address] 15191 Chloride [Moles/Vol] 100 mmol/L Normal 98-107 [facility] Comment on above: Performed By: #### 5 8077-9 #### MELISSA WHITEHEAD ([id number]) [facility] ([facility]) [address] [place] [address] CO2 [Moles/Vol] 20 mmol/L Low 21-32 [facility] Comment on above: Performed By: #### 5 8077-9 #### MELISSA WHITEHEAD ([id number]) [facility] ([facility]) [address] [place] [address] Creatinine [Mass/Vol] 0.81 mg/dL Normal 0.50-1.05 [facility] Comment on above: Performed By: #### 5 8077-9 #### MELISSA WHITEHEAD ([id number]) [facility] ([facility]) [address] [place] [address] GFR/1.73 sq M.predicted MDRD (S/P/Bld) [Vol rate/Area] mL/min/{1.73_m2} Normal >60 [facility] Comment on above: Result Comment: Calc ulations of estimated GFR are performed using the 2020 CKD-EPI Study Refit equation without the race variable for the IDMS-Traceable creatinine methods. https://jasn.asnjournals.org/content/early/ASN.2020 099527 Performed By: #### 5 8077-9 #### MELISSA WHITEHEAD ([id number]) [facility] ([facility]) [facility] [place] [address] Glucose [Mass/Vol] 68 mg/dL Low 74-99 [facility] Comment on above: Performed By: #### 5 8077-9 #### MELISSA WHITEHEAD ([id number]) [facility] ([facility]) [address] [place] [address] 80450 Potassium [Moles/Vol] 3.6 mmol/L Normal 3.5-5.3 [facility] Comment on above: Performed By: #### 5 8077-9 #### MELISSA WHITEHEAD ([id number]) [facility] ([facility]) [address] [place] [address] 34627 Protein [Mass/Vol] 6.6 g/dL Normal 6.4-8.2 [facility] Comment on above: Performed By: #### 5 8077-9 #### MELISSA WHITEHEAD ([id number]) [facility] ([facility]) [address] [place] [address] 61460 Sodium [Moles/Vol] 133 mmol/L Low 136-145 [facility] Comment on above: Performed By: #### 5 8077-9 #### MELISSA WHITEHEAD ([id number]) [facility] ([facility]) [address] [place] [address] 78737 Urea nitrogen [Mass/Vol] 10 mg/dL Normal 6-23 [facility] Comment on above: Performed By: #### 5 8077-9 #### MELISSA WHITEHEAD ([id number]) [facility] ([facility]) [address] [place] [address] 87775 ECG 12-LEADon 06-21-2023 ECG 12-LEAD Ventricular Rate 77 Atrial Rate 77 P-R Interval 120 QRS Duration 84 Q-T Interval 394 QTC Calculation(Bazett) 445 P [place] 76 R [place] 91 T [place] 32 QRS Count 13 Q Onset 223 P Onset 163 P Offset 203 T Offset 420 QTC Fredericia 428 Diagnosis Normal sinus rhythm Rightward axis Borderline ECG When compared with ECG of 21-JUN-2023 07:53, (unconfirmed) Vent. rate has decreased BY 38 BPM QRS voltage has increased Nonspecific T wave abnormality now evident in Inferior leads See ED provider note for full interpretation and clinical correlation Confirmed by Eugene Mccormick ([id number]) on 07/02/2023 1:17:49 PM Normal [facility] Tropinin I.cardiac panel Hig h sensitivity methodon 06-21-2023 Interpretation and review of laboratory results Normal [facility] Less than 99th percentile of normal range cutoff- Female and children under 18 years old <14 ng/L; Male <21 ng/L: Negative Repeat testing should be performed if clinically indicated. Female and children under 18 years old 14-50 ng/L; Male 21-50 ng/L: Consistent with possible cardiac damage and possible increased clinical risk. Serial measurements may help to assess extent of myocardial damage. >50 ng/L: Consistent with cardiac damage, increased clinical risk and myocardial infarction. Serial measurements may help assess extent of myocardial damage. NOTE: Children less than 1 year old may have higher baseline troponin levels and results should be interpreted in conjunction with the overall clinical context. NOTE: Troponin I testing is performed using a different testing methodology at [facility] than at [facility] Direct result comparisons should only be made within the same method. [facility] Troponin I, High Sensitivity on 06-21-2023 Tropinin I.cardiac panel High sensitivity method ng/L 0 - 13 ng/L [facility] Troponin I.cardiac panelon 0 06-21-2023 Tropinin I.cardiac panel High sensitivity method <3 Normal 0-13 [facility] Comment on above: Order Comment: Less than 99th percentile of normal range cutoff-Female and children under 18 years old <14 ng/L; Male <21 ng/L: NegativeRepeat testing should be performed if clinically indicated.Female and children under 18 years old 14-50 ng/L; Male 21-50 ng/L:Consistent with possible cardiac damage and possible increased clinicalrisk. Serial measurements may help to assess extent of myocardial damage.>50 ng/L: Consistent with cardiac damage, increased clinical risk andmyocardial infarction. Serial measurements may help assess extent ofmyocardial damage.NOTE: Children less than 1 year old may have higher baseline troponinlevels and results should be interpreted in conjunction with the overallclinical context.NOTE: Troponin I testing is performed using a differenttesting methodology at [facility] than at [facility]. Direct result comparisons should onlybe made within the same method. Performed By: #### 5 8077-9 #### TORRES VENTURA ([id number]) [facility] ([facility]) [address] [place] [id number] Basic metabolic 2000 panelon 06-20-2023 Anion gap [Moles/Vol] 14 mmol/L 10 - 20 mmol/L [facility] Calcium [Mass/Vol] 8.6 mg/dL 8.6 - 10. 3 mg/dL [facility] Chloride [Moles/Vol] 101 mmol/L 98 - 107 mmol/L [facility] CO2 [Moles/Vol] 20 mmol/L Low 21 - 32 mmol/L [facility] Creatinine [Mass/Vol] 0.80 mg/dL 0.50 - 1.05 mg/dL [facility] eGFR - PINF [facility] Comment on above: Calculations of nick mated GFR are performed using the 2020 CKD-EPI Study Refit equation without the race variable for the IDMS-Traceable creatinine methods. https://jasn.asnjournals.org/content/early//ASN.2020 662173 Glucose [Mass/Vol] 98 mg/dL 74 - 99 mg/dL [facility] Interpretation and review of laboratory results Abnormal [facility] Potassium [Moles/Vol] 3.7 mmol/L 3.5 - 5.3 mmol/L [facility] Sodium [Moles/Vol] 131 mmol/L Low 136 - 145 mmol/L [facility] Urea nitrogen [Mass/Vol] 7 mg/dL 6 - 23 mg/dL [facility] Anion gap [Moles/Vol] 14 mmol/L Normal 10-20 [facility] Comment on above: Performed By: #### 5 8077-9 #### MELISSA WHITEHEAD ([id number]) [facility] ([facility]) [address] [place] [address] Calcium [Mass/Vol] 8.6 mg/dL Normal 8.6-10.3 [facility] Comment on above: Performed By: #### 5 8077-9 #### MELISSA WHITEHEAD ([id number]) [facility] ([facility]) [address] [place] [address] Chloride [Moles/Vol] 101 mmol/L Normal 98-107 [facility] Comment on above: Performed By: #### 5 8077-9 #### MELISSA WHITEHEAD ([id number]) [facility] ([facility]) [address] [place] [address] CO2 [Moles/Vol] 20 mmol/L Low 21-32 [facility] Comment on above: Performed By: #### 5 8077-9 #### MELISSA WHITEHEAD ([id number]) [facility] ([facility]) [address] [place] [address] Creatinine [Mass/Vol] 0.80 mg/dL Normal 0.50-1.05 [facility] Comment on above: Performed By: #### 5 8077-9 #### MELISSA WHITEHEAD ([id number]) [facility] ([facility]) [facility] [place] [address] GFR/1.73 sq M.predicted MDRD (S/P/Bld) [Vol rate/Area] mL/min/{1.73_m2} Normal >60 [facility] Comment on above: Result Comment: Calc ulations of estimated GFR are performed using the 2020 CKD-EPI Study Refit equation without the race variable for the IDMS-Traceable creatinine methods. https://jasn.asnjournals.org/content/early/ 778459 Performed By: #### 5 8077-9 #### MELISSA WHITEHEAD ([id number]) [facility] ([facility]) [address] [place] [address] 62592 Glucose [Mass/Vol] 98 mg/dL Normal 74-99 [facility] Comment on above: Performed By: #### 5 8077-9 #### MELISSA WHITEHEAD ([id number]) [facility] ([facility]) [address] [place] [address] 52473 Potassium [Moles/Vol] 3.7 mmol/L Normal 3.5-5.3 [facility] Comment on above: Performed By: #### 5 8077-9 #### MELISSA WHITEHEAD ([id number]) [facility] ([facility]) [address] [place] [address] 31818 Sodium [Moles/Vol] 131 mmol/L Low 136-145 [facility] Comment on above: Performed By: #### 5 8077-9 #### MELISSA WHITEHEAD ([id number]) [facility] ([facility]) [address] [place] [address] 47703 Urea nitrogen [Mass/Vol] 7 mg/dL Normal 6-23 [facility] Comment on above: Performed By: #### 5 8077-9 #### MELISSA WHITEHEAD ([id number]) [facility] ([facility]) [address] [place] [address] 16751 CBC panel Auto (Bld)on 06-19 Erythrocyte distribution width (RBC) [Ratio] 14.4 % 11.5 - 14.5 % [facility] Hematocrit (Bld) [Volume fraction] 41.9 % 36.0 - 46.0 % [facility] Hemoglobin (Bld) [Mass/Vol] 13.9 g/dL 12.0 - 16.0 g/dL [facility] Interpretation and review of laboratory results Normal [facility] MCH (RBC) [Entitic mass] 28.6 pg 26.0 - 34.[address] [facility] MCHC (RBC) [Mass/Vol] 33.2 g/dL 32.0 - 36.0 g/dL [facility] MCV (RBC) [Entitic vol] 86 fL 80 - [address] [facility] Nucleated RBC/100 WBC (Bld) [Ratio] 0.0 % [facility] Platelets (Bld) [#/Vol] 235 10*3/uL [facility] RBC (Bld) [#/Vol] 4.86 10*6/uL [facility] WBC (Bld) [#/Vol] 6.5 10*3/uL [facility] Erythrocyte distribution width (RBC) [Ratio] 14.4 % Normal 11.5-14.5 [facility] Comment on above: Performed By: #### 5 8077-9 #### MELISSA WHITEHEAD ([id number]) [facility] ([facility]) [address] [place] [address] 22993 Hematocrit (Bld) [Volume fraction] 41.9 % Normal 36.0-46.0 [facility] Comment on above: Performed By: #### 5 8077-9 #### MELISSA WHITEHEAD ([id number]) [facility] ([facility]) [address] [place] [address] 40081 Hemoglobin (Bld) [Mass/Vol] 13.9 g/dL Normal 12.0-16.0 [facility] Comment on above: Performed By: #### 5 8077-9 #### MELISSA WHITEHEAD ([id number]) [facility] ([facility]) [address] [place] [address] 96827 MCH (RBC) [Entitic mass] 28.6 pg Normal 26.0-34.0 [facility] Comment on above: Performed By: #### 5 8077-9 #### MELISSA WHITEHEAD ([id number]) [facility] ([facility]) [address] [place] [address] 27876 MCHC (RBC) [Mass/Vol] 33.2 g/dL Normal 32.0-36.0 [facility] Comment on above: Performed By: #### 5 8077-9 #### MELISSA WHITEHEAD ([id number]) [facility] ([facility]) [address] [place] [address] 27626 MCV (RBC) [Entitic vol] 86 fL Normal 80-100 [facility] Comment on above: Performed By: #### 5 8077-9 #### MELISSA WHITEHEAD ([id number]) [facility] ([facility]) [address] [place] [address] 07772 Nucleated RBC/100 WBC (Bld) [Ratio] 0.0 /100 WBCs Normal 0.0-0.0 [facility] Comment on above: Performed By: #### 5 8077-9 #### MELISSA WHITEHEAD ([id number]) [facility] ([facility]) [address] [place] [address] 70162 Platelets (Bld) [#/Vol] 235 x10*3/uL Normal 150-450 [facility] Comment on above: Performed By: #### 5 8077-9 #### MELISSA WHITEHEAD ([id number]) [facility] ([facility]) [address] [place] [address] 38039 RBC (Bld) [#/Vol] 4.86 x10*6/uL Normal 4.00-5.20 [facility] Comment on above: Performed By: #### 5 8077-9 #### MELISSA WHITEHEAD ([id number]) [facility] ([facility]) [address] [place] [address] 35193 WBC (Bld) [#/Vol] 6.5 x10*3/uL Normal 4.4-11.3 [facility] Comment on above: Performed By: #### 5 8077-9 #### MELISSA WHITEHEAD ([id number]) [facility] ([facility]) [address] [place] [address] 61027 Extra Urine Emerson Tubeon 06-10 Extra Tube Hold for add-ons. [facility] Comment on above: Auto resulted. [facility] NM HEPATOBILIARYon NM HEPATOBILIARY Interpreted By: Jonathan Shannon, and Noemy Melara STUDY: NM HEPATOBILIARY; 06/20/2023 7:34 am INDICATION: Signs/Symptoms:rule out biliary leak. COMPARISON: None. ACCESSION NUMBER(S): [id number] ORDERING CLINICIAN: ALLA LLANES TECHNIQUE: DIVISION OF NUCLEAR MEDICINE [facility]PATOBILIARY SCAN [facility] The patient received an intravenous dose of 6 mCi of Tc-99m mebrofenin (Choletec). Sequential images of the upper abdomen were then acquired over the next 60 minutes. Right lateral images were obtained. FINDINGS: There is prompt accumulation of activity within the liver and normal subsequent excretion via the biliary ductal system into the small bowel. There is nonvisualization of the gallbladder consistent with history of prior cholecystectomy. There is no evidence of radiotracer extravasation to suggest bile leak. Note is made of enterogastric reflux. IMPRESSION: Patient is status post cholecystectomy, without evidence of radiotracer extravasation to suggest bile leak. Enterogastric reflux is noted. I personally reviewed the images/study and I agree with the findings as stated. This study was interpreted at [place], [place]. MACRO: None Signed by: Jonathan Shannon 06/20/2023 10:09 AM Dictation workstation: [id number] [facility] NM Liver and Biliary ducts a nd Gallbladder Viewson 06-20-2023 Patient is status post cholecystectomy, without evidence of radiotracer extravasation to suggest bile leak. Enterogastric reflux is noted. I personally reviewed the images/study and I agree with the findings as stated. This study was interpreted at [place], [place]. MACRO: None Signed by: Jonathan Shannon 06/20/2023 10:09 AM Dictation workstation: [id number] MMODAL Interpreted By: Jonathan Shannon and Bartolomei Aguilar Christopher STUDY: NM HEPATOBILIARY; 06/20/2023 7:34 am INDICATION: Signs/Symptoms:rule out biliary leak. COMPARISON: None. ACCESSION NUMBER(S): [id number] ORDERING CLINICIAN: ALLA LLANES TECHNIQUE: DIVISION OF NUCLEAR MEDICINE HEPATOBILIARY SCAN ([facility]) The patient received an intravenous dose of 6 mCi of Tc-99m mebrofenin (Choletec). Sequential images of the upper abdomen were then acquired over the next 60 minutes. Right lateral images were obtained. FINDINGS: There is prompt accumulation of activity within the liver and normal subsequent excretion via the biliary ductal system into the small bowel. There is nonvisualization of the gallbladder consistent with history of prior cholecystectomy. There is no evidence of radiotracer extravasation to suggest bile leak. Note is made of enterogastric reflux. [facility] Jonathan Shannon MD - 06/20/2023 Interpreted By: Jonathan Shannon, and Noemy Melara STUDY: NM HEPATOBILIARY; 06/20/2023 7:34 am INDICATION: Signs/Symptoms:rule out biliary leak. COMPARISON: None. ACCESSION NUMBER(S): [id number] ORDERING CLINICIAN: ALLA LLANES TECHNIQUE: DIVISION OF NUCLEAR MEDICINE HEPATOBILIARY SCAN ([place]) The patient received an intravenous dose of 6 mCi of Tc-99m mebrofenin (Choletec). Sequential images of the upper abdomen were then acquired over the next 60 minutes. Right lateral images were obtained. FINDINGS: There is prompt accumulation of activity within the liver and normal subsequent excretion via the biliary ductal system into the small bowel. There is nonvisualization of the gallbladder consistent with history of prior cholecystectomy. There is no evidence of radiotracer extravasation to suggest bile leak. Note is made of enterogastric reflux. IMPRESSION: Patient is status post cholecystectomy, without evidence of radiotracer extravasation to suggest bile leak. Enterogastric reflux is noted. I personally reviewed the images/study and I agree with the findings as stated. This study was interpreted at [place], [place]. MACRO: None Signed by: Jonathan Shannon 06/20/2023 10:09 AM Dictation workstation: [id number] [facility] Work Phone: Radiology Study observation (narrative) [facility] Work Phone: NM Liver and Biliary ducts a nd Gallbladder ViewsOrdered By: Jonathan Shannon on 06-20-2023 [facility] Work Phone: Basic metabolic 2000 panelon 06-19-2023 Anion gap [Moles/Vol] 20 mmol/L 10 - 20 mmol/L [facility] Calcium [Mass/Vol] 9.1 mg/dL 8.6 - 10. 3 mg/dL [facility] Chloride [Moles/Vol] 98 mmol/L 98 - 107 mmol/L [facility] CO2 [Moles/Vol] 16 mmol/L Low 21 - 32 mmol/L [facility] Creatinine [Mass/Vol] 0.65 mg/dL 0.50 - 1.05 mg/dL [facility] eGFR - PINF [facility] Comment on above: Calculations of nick mated GFR are performed using the 2020 CKD-EPI Study Refit equation without the race variable for the IDMS-Traceable creatinine methods. https://jasn.asnjournals.org/content/early/ASN.2020 555025 Glucose [Mass/Vol] 74 mg/dL 74 - 99 mg/dL [facility] Potassium [Moles/Vol] 4.4 mmol/L 3.5 - 5.3 mmol/L [facility] Sodium [Moles/Vol] 130 mmol/L Low 136 - 145 mmol/L [facility] Comment on above: Confirmed by repeat analysis Urea nitrogen [Mass/Vol] 7 mg/dL 6 - 23 mg/dL [facility] Anion gap [Moles/Vol] 20 mmol/L Normal 10-20 [facility] Comment on above: Performed By: #### 2 4321-2 #### MELISSA WHITEHEAD ([id number]) [facility] ([facility]) [facility] [place] [address] Calcium [Mass/Vol] 9.1 mg/dL Normal 8.6-10.3 [facility] Comment on above: Performed By: #### 2 4321-2 #### MELISSA WHITEHEAD ([id number]) [facility] ([facility]) [address] [place] [address] Chloride [Moles/Vol] 98 mmol/L Normal 98-107 [facility] Comment on above: Performed By: #### 2 4321-2 #### MELISSA WHITEHEAD ([id number]) [facility] ([facility]) [address] [place] [address] CO2 [Moles/Vol] 16 mmol/L Low 21-32 [facility] Comment on above: Performed By: #### 2 4321-2 #### MELISSA WHITEHEAD ([id number]) [facility] ([facility]) [address] [place] [address]8819 Creatinine [Mass/Vol] 0.65 mg/dL Normal 0.50-1.05 [facility] Comment on above: Performed By: #### 2 4321-2 #### MELISSA WHITEHEAD ([id number]) [facility] ([facility]) [address] [place] [address] 40780 GFR/1.73 sq M.predicted MDRD (S/P/Bld) [Vol rate/Area] mL/min/{1.73_m2} Normal >60 [facility] Comment on above: Result Comment: Calc ulations of estimated GFR are performed using the 2020 CKD-EPI Study Refit equation without the race variable for the IDMS-Traceable creatinine methods. https://jasn.asnjournals.org/content/early//ASN.2020 142753 Performed By: #### 2 4321-2 #### MELISSA WHITEHEAD ([id number]) [facility] ([facility]) [address] [place] [address] 37553 Glucose [Mass/Vol] 74 mg/dL Normal 74-99 [facility] Comment on above: Performed By: #### 2 4321-2 #### MELISSA WHITEHEAD ([id number]) [facility] ([facility]) [address] [place] [address] 53976 Potassium [Moles/Vol] 4.4 mmol/L Normal 3.5-5.3 [facility] Comment on above: Performed By: #### 2 4321-2 #### MELISSA WHITEHEAD ([id number]) [facility] ([facility]) [address] [place] [address] 62971 Sodium [Moles/Vol] 130 mmol/L Low 136-145 [facility] Comment on above: Result Comment: Conf irmed by repeat analysis Performed By: #### 2 4321-2 #### MELISSA WHITEHEAD ([id number]) [facility] ([facility]) [address] [place] [address] Urea nitrogen [Mass/Vol] 7 mg/dL Normal 6-23 [facility] Comment on above: Performed By: #### 2 4321-2 #### TORRES VENTURA ([id number]) [facility] ([facility]) [address] [place] [id number] CBC W Auto Differential pane l (Bld)on 06-19-2023 Basophils (Bld) [#/Vol] 0.01 10*3/uL [facility] Basophils/100 WBC (Bld) 0.2 % 0.0 - 2.0 % [facility] Eosinophils (Bld) [#/Vol] 0.01 10*3/uL [facility] Eosinophils/100 WBC (Bld) 0.2 % 0.0 - 6.0 % [facility] Erythrocyte distribution width (RBC) [Ratio] 14.1 % 11.5 - 14.5 % [facility] Hematocrit (Bld) [Volume fraction] 43.7 % 36.0 - 46.0 % [facility] Hemoglobin (Bld) [Mass/Vol] 14.2 g/dL 12.0 - 16.0 g/dL [facility] Immature granulocytes (Bld) [#/Vol] 0.01 10*3/uL [facility] Immature granulocytes/100 WBC (Bld) 0.2 % 0.0 - 0.9 % [facility] Comment on above: Immature Granulocyte Count (IG) includes promyelocytes, myelocytes and metamyelocytes but does not include bands. Percent differential counts (%) should be interpreted in the context of the absolute cell counts (cells/UL). Interpretation and review of laboratory results Abnormal [facility] Lymphocytes (Bld) [#/Vol] 0.64 10*3/uL Low [facility] Lymphocytes/100 WBC (Bld) 12.9 % 13.0 - 44.0 % [facility] MCH (RBC) [Entitic mass] 28.2 pg 26.0 - 34.[address] [facility] MCHC (RBC) [Mass/Vol] 32.5 g/dL 32.0 - 36.0 g/dL [facility] MCV (RBC) [Entitic vol] 87 fL 80 - [address] [facility] Monocytes (Bld) [#/Vol] 0.10 10*3/uL [facility] Monocytes/100 WBC (Bld) 2.0 % 2.0 - 10.0 % [facility] Neutrophils (Bld) [#/Vol] 4.20 10*3/uL [facility] Comment on above: Percent differential counts (%) should be interpreted in the context of the absolute cell counts (cells/uL). Neutrophils/100 WBC (Bld) 84.5 % 40.0 - 80.0 % [facility] Nucleated RBC/100 WBC (Bld) [Ratio] 0.0 % [facility] Platelets (Bld) [#/Vol] 225 10*3/uL [facility] RBC (Bld) [#/Vol] 5.03 10*6/uL [facility] WBC (Bld) [#/Vol] 5.0 10*3/uL [facility] Basophils (Bld) [#/Vol] 0.01 x10*3/uL Normal 0.00-0.10 [facility] Comment on above: Performed By: #### 5 7021-8 #### MELISSA WHITEHEAD ([id number]) [facility] ([facility]) [address] [place] [address] 89617 Basophils/100 WBC (Bld) 0.2 % Normal 0.0-2.0 [facility] Comment on above: Performed By: #### 5 7021-8 #### MELISSA WHITEHEAD ([id number]) [facility] ([facility]) [facility] [place] [address] Eosinophils (Bld) [#/Vol] 0.01 x10*3/uL Normal 0.00-0.70 [facility] Comment on above: Performed By: #### 5 7021-8 #### MELISSA WHITEHEAD ([id number]) [facility] ([facility]) [facility] [place] [address] Eosinophils/100 WBC (Bld) 0.2 % Normal 0.0-6.0 [facility] Comment on above: Performed By: #### 5 7021-8 #### MELISSA WHITEHEAD ([id number]) [facility] ([facility]) [address] [place] [address] Erythrocyte distribution width (RBC) [Ratio] 14.1 % Normal 11.5-14.5 [facility] Comment on above: Performed By: #### 5 7021-8 #### MELISSA WHITEHEAD ([id number]) [facility] ([facility]) [address] [place] [address] Hematocrit (Bld) [Volume fraction] 43.7 % Normal 36.0-46.0 [facility] Comment on above: Performed By: #### 5 7021-8 #### MELISSA WHITEHEAD ([id number]) [facility] ([facility]) [address] [place] [address] 21277 Hemoglobin (Bld) [Mass/Vol] 14.2 g/dL Normal 12.0-16.0 [facility] Comment on above: Performed By: #### 5 7021-8 #### MELISSA WHITEHEAD ([id number]) [facility] ([facility]) [address] [place], [place] [id number] Immature granulocytes (Bld) [#/Vol] 0.01 x10*3/uL Normal 0.00-0.70 [facility] Comment on above: Performed By: #### 5 7021-8 #### MELISSA WHITEHEAD ([id number]) [facility] ([facility]) [address] [place], [place] [id number] Immature granulocytes/100 WBC (Bld) 0.2 % Normal 0.0-0.9 [facility] Comment on above: Result Comment: Betty ture Granulocyte Count (IG) includes promyelocytes, myelocytes and metamyelocytes but does not include bands. Percent differential counts (%) should be interpreted in the context of the absolute cell counts (cells/UL). Performed By: #### 5 7021-8 #### MELISSA WHITEHEAD ([id number]) [facility] ([facility]) [address] [place] [address] Lymphocytes (Bld) [#/Vol] 0.64 x10*3/uL Low 1.20-4.80 [facility] Comment on above: Performed By: #### 5 7021-8 #### MELISSA WHITEHEAD ([id number]) [facility] ([facility]) [address] [place] [address] Lymphocytes/100 WBC (Bld) 12.9 % Normal 13.0-44.0 [facility] Comment on above: Performed By: #### 5 7021-8 #### MELISSA WHITEHEAD ([id number]) [facility] ([facility]) [address] [place] [address] 83389 MCH (RBC) [Entitic mass] 28.2 pg Normal 26.0-34.0 [facility] Comment on above: Performed By: #### 5 7021-8 #### MELISSA WHITEHEAD ([id number]) [facility] ([facility]) [address] [place] [address] 63522 MCHC (RBC) [Mass/Vol] 32.5 g/dL Normal 32.0-36.0 [facility] Comment on above: Performed By: #### 5 7021-8 #### MELISSA WHITEHEAD ([id number]) [facility] ([facility]) [address] [place] [address] 10130 MCV (RBC) [Entitic vol] 87 fL Normal 80-100 [facility] Comment on above: Performed By: #### 5 7021-8 #### MELISSA WHITEHEAD ([id number]) [facility] ([facility]) [address] [place] [address] 78111 Monocytes (Bld) [#/Vol] 0.10 x10*3/uL Normal 0.10-1.00 [facility] Comment on above: Performed By: #### 5 7021-8 #### MELISSA WHITEHEAD ([id number]) [facility] ([facility]) [address] [place] [address] 71014 Monocytes/100 WBC (Bld) 2.0 % Normal 2.0-10.0 [facility] Comment on above: Performed By: #### 5 7021-8 #### MELISSA WHITEHEAD ([id number]) [facility] ([facility]) [address] [place] [address] 83898 Neutrophils (Bld) [#/Vol] 4.20 x10*3/uL Normal 1.20-7.70 [facility] Comment on above: Result Comment: Perc ent differential counts (%) should be interpreted in the context of the absolute cell counts (cells/uL). Performed By: #### 5 7021-8 #### MELISSA WHITEHEAD ([id number]) [facility] ([facility]) [address] [place] [address] 10612 Neutrophils/100 WBC (Bld) 84.5 % Normal 40.0-80.0 [facility] Comment on above: Performed By: #### 5 7021-8 #### MELISSA WHITEHEAD ([id number]) [facility] ([facility]) [address] [place] [address] 64880 Nucleated RBC/100 WBC (Bld) [Ratio] 0.0 /100 WBCs Normal 0.0-0.0 [facility] Comment on above: Performed By: #### 5 7021-8 #### MELISSA WHITEHEAD ([id number]) [facility] ([facility]) [address] [place] [address] 19577 Platelets (Bld) [#/Vol] 225 x10*3/uL Normal 150-450 [facility] Comment on above: Performed By: #### 5 7021-8 #### MELISSA WHITEHEAD ([id number]) [facility] ([facility]) [address] [place] [address] 59113 RBC (Bld) [#/Vol] 5.03 x10*6/uL Normal 4.00-5.20 [facility] Comment on above: Performed By: #### 5 7021-8 #### MELISSA WHITEHEAD ([id number]) [facility] ([facility]) [address] [place] [address] 28361 WBC (Bld) [#/Vol] 5.0 x10*3/uL Normal 4.4-11.3 [facility] Comment on above: Performed By: #### 5 7021-8 #### TORRES VENTURA ([id number]) [facility] ([facility]) [address] [place] [id number] [address] ABDOMEN PELVIS W IV CONTR [place] 06-19-2023 CT ABDOMEN PELVIS W IV CONTRAST Interpreted By: Young Foss, ADDENDUM: Young Foss discussed the significance and urgency of this critical finding by telephone with Dr. Llanes on 06/21/2023 at 7:23 am. (-RCF-) Findings: At 7:12 a.m., 06/11/2023, I was alerted to the possibility of a pulmonary embolism on this patient's CT abdomen/pelvis. Upon additional review, there is a short segment filling defect seen on 2 slices (axial image 3-4, series 2) within a subsegmental pulmonary artery branch corresponding to the posterior segment of the right lower lobe. This filling defect appears sufficiently discrete and central to likely represent a subsegmental nonocclusive pulmonary embolism. Immediately, the patient's treating physician, Dr. Llanes, was notified of these results via telephone at the time stamp above. It was agreed that the patient, despite not displaying a overt pulmonary symptoms, should be reassessed in the emergency department and to include additional imaging of the chest with CT pulmonary embolism protocol to evaluate for any additional pulmonary emboli and to consider obtaining duplex ultrasounds of the lower extremities to evaluate for underlying DVT. Signed by: Young Foss 06/21/2023 7:33 AM -------- ORIGINAL REPORT -------- Dictation workstation: [id number] Interpreted By: Young Foss, STUDY: CT ABDOMEN PELVIS W IV CONTRAST; 06/19/2023 7:55 pm INDICATION: Signs/Symptoms:recen t cholecystectomy, nausea, vomiting, increased pain. Postoperative day to COMPARISON: None. ACCESSION NUMBER(S): [id number] ORDERING CLINICIAN: EUGENE CARCAMO TECHNIQUE: Contiguous axial images of the abdomen and pelvis were obtained after the intravenous administration of iodinated contrast. Coronal and sagittal reformatted images were reconstructed from the axial data. FINDINGS: LOWER CHEST: No acute abnormality. ABDOMEN/PELVIS: ABDOMINAL WALL: There is scattered soft tissue gas in the abdominal wall musculature and subcutaneous tissues related to recent laparoscopic cholecystectomy. There is mild edema in the periumbilical region. There is no abdominal wall fluid collection. LIVER: Hypoattenuation adjacent the falciform ligament likely representing focal fatty infiltration. No suspicious lesions. BILE DUCTS: The common bile duct is upper limits of normal measuring 0.7 cm without premature truncation or termination. There is minimal prominence of the right/left hepatic ducts. GALLBLADDER: Status post cholecystectomy. There is a trace amount of intermediate density fluid in the cholecystectomy bed measuring 2 cm x 1.1 cm x 0.6 cm, likely serosanguineous products. PANCREAS: No significant abnormality. SPLEEN: No significant abnormality. ADRENALS: No significant abnormality. KIDNEYS, URETERS, BLADDER: No significant abnormality. REPRODUCTIVE ORGANS: No significant abnormality. VESSELS: No significant abnormality. RETROPERITONEUM/LYMP H NODES: No enlarged lymph nodes. No acute retroperitoneal abnormality. BOWEL/MESENTERY/SARAH TONEUM: The stomach appears normal for degree of distention. The small bowel is normal in caliber without inflammatory change. However, there is diffuse inflammation and mild to moderate wall thickening of the colon that is more pronounced in the ascending and proximal transverse colon in which there is the greatest wall thickening, mucosal hyperenhancement, and surrounding fat stranding. There is liquid stool throughout the colon. There is small volume pneumoperitoneum. There is a trace amount of intermediate density fluid extending into the right paracolic gutter. However there is a moderate amount of fluid throughout the dependent pelvic recesses surrounding the uterus and in the bilateral adnexa and cul-de-sac measuring 15 HU in density. Also noted is mild, thin peritoneal enhancement in the region of the cul-de-sac. MUSCULOSKELETAL: No acute osseous abnormality. No suspicious osseous lesion. IMPRESSION: 1. Diffuse infectious colitis from the cecum to rectum most pronounced within the ascending and proximal transverse colon. 2. Moderate amount of free fluid in the dependent pelvic recesses measuring upper limits of normal for simple vs complicated, associated with mild thin peritoneal enhancement, features suggesting an inflammatory component; therefore, the possibility of peritonitis is raised. 3. Trace serosanguineous fluid in the gallbladder fossa without loculation. 4. Small volume pneumoperitoneum, likely relating to recent postoperative status. MACRO: None. Signed by: Young Foss 06/19/2023 8:23 PM Dictation workstation: [id number] [facility] CT Abdomen and Pelvis W cont rast Anjali 06-19-2023 1. Diffuse infectious colitis from the cecum to rectum most pronounced within the ascending and proximal transverse colon. 2. Moderate amount of free fluid in the dependent pelvic recesses measuring upper limits of normal for simple vs complicated, associated with mild thin peritoneal enhancement, features suggesting an inflammatory component; therefore, the possibility of peritonitis is raised. 3. Trace serosanguineous fluid in the gallbladder fossa without loculation. 4. Small volume pneumoperitoneum, likely relating to recent postoperative status. MACRO: None. Signed by: Young Foss 06/19/2023 8:23 PM Dictation workstation: [id number] [facility] Interpreted By: Young Foss, STUDY: CT ABDOMEN PELVIS W IV CONTRAST; 06/19/2023 7:55 pm INDICATION: Signs/Symptoms:recen t cholecystectomy, nausea, vomiting, increased pain. Postoperative day to COMPARISON: None. ACCESSION NUMBER(S): [id number] ORDERING CLINICIAN: EUGENE CARCAMO TECHNIQUE: Contiguous axial images of the abdomen and pelvis were obtained after the intravenous administration of iodinated contrast. Coronal and sagittal reformatted images were reconstructed from the axial data. FINDINGS: LOWER CHEST: No acute abnormality. ABDOMEN/PELVIS: ABDOMINAL WALL: There is scattered soft tissue gas in the abdominal wall musculature and subcutaneous tissues related to recent laparoscopic cholecystectomy. There is mild edema in the periumbilical region. There is no abdominal wall fluid collection. LIVER: Hypoattenuation adjacent the falciform ligament likely representing focal fatty infiltration. No suspicious lesions. BILE DUCTS: The common bile duct is upper limits of normal measuring 0.7 cm without premature truncation or termination. There is minimal prominence of the right/left hepatic ducts. GALLBLADDER: Status post cholecystectomy. There is a trace amount of intermediate density fluid in the cholecystectomy bed measuring 2 cm x 1.1 cm x 0.6 cm, likely serosanguineous products. PANCREAS: No significant abnormality. SPLEEN: No significant abnormality. ADRENALS: No significant abnormality. KIDNEYS, URETERS, BLADDER: No significant abnormality. REPRODUCTIVE ORGANS: No significant abnormality. VESSELS: No significant abnormality. RETROPERITONEUM/LYMP H NODES: No enlarged lymph nodes. No acute retroperitoneal abnormality. BOWEL/MESENTERY/SARAH TONEUM: The stomach appears normal for degree of distention. The small bowel is normal in caliber without inflammatory change. However, there is diffuse inflammation and mild to moderate wall thickening of the colon that is more pronounced in the ascending and proximal transverse colon in which there is the greatest wall thickening, mucosal hyperenhancement, and surrounding fat stranding. There is liquid stool throughout the colon. There is small volume pneumoperitoneum. There is a trace amount of intermediate density fluid extending into the right paracolic gutter. However there is a moderate amount of fluid throughout the dependent pelvic recesses surrounding the uterus and in the bilateral adnexa and cul-de-sac measuring 15 HU in density. Also noted is mild, thin peritoneal enhancement in the region of the cul-de-sac. MUSCULOSKELETAL: No acute osseous abnormality. No suspicious osseous lesion. [facility] Young Foss MD - 06/19/2023 Interpreted By: Young Foss, STUDY: CT ABDOMEN PELVIS W IV CONTRAST; 06/19/2023 7:55 pm INDICATION: Signs/Symptoms:recen t cholecystectomy, nausea, vomiting, increased pain. Postoperative day to COMPARISON: None. ACCESSION NUMBER(S): [id number] ORDERING CLINICIAN: EUGENE CARCAMO TECHNIQUE: Contiguous axial images of the abdomen and pelvis were obtained after the intravenous administration of iodinated contrast. Coronal and sagittal reformatted images were reconstructed from the axial data. FINDINGS: LOWER CHEST: No acute abnormality. ABDOMEN/PELVIS: ABDOMINAL WALL: There is scattered soft tissue gas in the abdominal wall musculature and subcutaneous tissues related to recent laparoscopic cholecystectomy. There is mild edema in the periumbilical region. There is no abdominal wall fluid collection. LIVER: Hypoattenuation adjacent the falciform ligament likely representing focal fatty infiltration. No suspicious lesions. BILE DUCTS: The common bile duct is upper limits of normal measuring 0.7 cm without premature truncation or termination. There is minimal prominence of the right/left hepatic ducts. GALLBLADDER: Status post cholecystectomy. There is a trace amount of intermediate density fluid in the cholecystectomy bed measuring 2 cm x 1.1 cm x 0.6 cm, likely serosanguineous products. PANCREAS: No significant abnormality. SPLEEN: No significant abnormality. ADRENALS: No significant abnormality. KIDNEYS, URETERS, BLADDER: No significant abnormality. REPRODUCTIVE ORGANS: No significant abnormality. VESSELS: No significant abnormality. RETROPERITONEUM/LYMP H NODES: No enlarged lymph nodes. No acute retroperitoneal abnormality. BOWEL/MESENTERY/SARAH TONEUM: The stomach appears normal for degree of distention. The small bowel is normal in caliber without inflammatory change. However, there is diffuse inflammation and mild to moderate wall thickening of the colon that is more pronounced in the ascending and proximal transverse colon in which there is the greatest wall thickening, mucosal hyperenhancement, and surrounding fat stranding. There is liquid stool throughout the colon. There is small volume pneumoperitoneum. There is a trace amount of intermediate density fluid extending into the right paracolic gutter. However there is a moderate amount of fluid throughout the dependent pelvic recesses surrounding the uterus and in the bilateral adnexa and cul-de-sac measuring 15 HU in density. Also noted is mild, thin peritoneal enhancement in the region of the cul-de-sac. MUSCULOSKELETAL: No acute osseous abnormality. No suspicious osseous lesion. IMPRESSION: 1. Diffuse infectious colitis from the cecum to rectum most pronounced within the ascending and proximal transverse colon. 2. Moderate amount of free fluid in the dependent pelvic recesses measuring upper limits of normal for simple vs complicated, associated with mild thin peritoneal enhancement, features suggesting an inflammatory component; therefore, the possibility of peritonitis is raised. 3. Trace serosanguineous fluid in the gallbladder fossa without loculation. 4. Small volume pneumoperitoneum, likely relating to recent postoperative status. MACRO: None. Signed by: Young Foss 06/19/2023 8:23 PM Dictation workstation: [id number] [facility] Work Phone: Radiology Study observation (narrative) [facility] Work Phone: CT Abdomen and Pelvis W cont rast IVOrdered By: Young Foss on 06-19-2023 [facility] Work Phone: HCG ( test) IA.rapi d Ql (U)Ordered By: Carlos Alberto Oden on 06-19-2023 HCG ( test) Ql (U) Negative NEGATIVE [facility] Interpretation and review of laboratory results Normal [facility] HCG ( test) Cristhian d Ql (U)on 06-19-2023 HCG ( test) Ql (U) Negative Normal NEGATIVE [facility] Comment on above: Performed By: #### 5 8077-9 #### MELISSA WHITEHEAD ([id number]) [facility] ([facility]) [address] [place] [address] Hepatic function 2000 panelo n 06-19-2023 Albumin BCP dye [Mass/Vol] 4.8 g/dL 3.4 - 5.0 g/dL [facility] ALP [Catalytic activity/Vol] 61 U/L 33 - 110 U/L [facility] ALT With P-5'-P [Catalytic activity/Vol] 56 U/L High 7 - 45 U/L [facility] Comment on above: Patients treated wit h Sulfasalazine may generate falsely decreased results for ALT. AST With P-5'-P [Catalytic activity/Vol] 26 U/L 9 - 39 U/L [facility] Bilirubin [Mass/Vol] 0.7 mg/dL 0.0 - 1.2 mg/dL [facility] Bilirubin.direct [Mass/Vol] 0.1 mg/dL 0.0 - 0.3 mg/dL [facility] Protein [Mass/Vol] 7.3 g/dL 6.4 - 8.2 g/dL [facility] Albumin BCP dye [Mass/Vol] 4.8 g/dL Normal 3.4-5.0 [facility] Comment on above: Performed By: #### 2 4325-3 #### MELISSA WHITEHEAD ([id number]) [facility] ([facility]) [address] [place] [address] ALP [Catalytic activity/Vol] 61 U/L Normal 33-110 [facility] Comment on above: Performed By: #### 2 4325-3 #### MELISSA WHITEHEAD ([id number]) [facility] ([facility]) [facility] [place] [address] ALT With P-5'-P [Catalytic activity/Vol] 56 U/L High 7-45 [facility] Comment on above: Result Comment: Gema ents treated with Sulfasalazine may generate falsely decreased results for ALT. Performed By: #### 2 4325-3 #### MELISSA WHITEHEAD ([id number]) [facility] ([facility]) [facility] [place] [address] AST With P-5'-P [Catalytic activity/Vol] 26 U/L Normal 9-39 [facility] Comment on above: Performed By: #### 2 4325-3 #### MELISSA WHITEHEAD ([id number]) [facility] ([facility]) [address] [place] [address] 16080 Bilirubin [Mass/Vol] 0.7 mg/dL Normal 0.0-1.2 [facility] Comment on above: Performed By: #### 2 4325-3 #### MELISSA WHITEHEAD ([id number]) [facility] ([facility]) [address] [place] [address] 82414 Bilirubin.direct [Mass/Vol] 0.1 mg/dL Normal 0.0-0.3 [facility] Comment on above: Performed By: #### 2 4325-3 #### MELISSA WHITEHEAD ([id number]) [facility] ([facility]) [address] [place] [address] 16820 Protein [Mass/Vol] 7.3 g/dL Normal 6.4-8.2 [facility] Comment on above: Performed By: #### 2 4325-3 #### MELISSA WHITEHEAD ([id number]) [facility] ([facility]) [address] [place] [address] 64899 Lactateon 06-19-2023 Lactate [Moles/Vol] 1.1 mmol/L 0.4 - 2. 0 mmol/L [facility] Lactate [Moles/Vol] 1.1 mmol/L Normal 0.4-2.0 [facility] Comment on above: Order Comment: Venip uncture immediately after or during the administration of Metamizole may lead to falsely low results. Testing should be performed immediately prior to Metamizole dosing. Performed By: #### 2 524-7 #### MELISSA WHITEHEAD ([id number]) [facility] ([facility]) [address] [place] [address] Lactate [Moles/Vol]on 2023 Interpretation and review of laboratory results Normal [facility] Venipuncture immediately after or during the administration of Metamizole may lead to falsely low results. Testing should be performed immediately prior to Metamizole dosing. [facility] Lipaseon 06-19-2023 Lipase [Catalytic activity/Vol] 30 U/L U/L [facility] Lipase [Catalytic activity/V ol]on 06-19-2023 Interpretation and review of laboratory results Normal [facility] Venipuncture immediately after or during the administration of Metamizole may lead to falsely low results. Testing should be performed immediately prior to Metamizole dosing. [facility] No Panel Informationon 06-18 Interpretation and review of laboratory results Abnormal [facility] Triacylglycerol lipaseon Lipase [Catalytic activity/Vol] 30 U/L Normal [facility] Comment on above: Order Comment: Venip uncture immediately after or during the administration of Metamizole may lead to falsely low results. Testing should be performed immediately prior to Metamizole dosing. Performed By: #### 3 040-3 #### MELISSA WHITEHEAD ([id number]) [facility] ([facility]) [address] [place], [place] [id number] Urinalysis complete W Reflex Culture panel (U)on 06-19-2023 Appearance (U) Clear Clear [facility] Bilirubin (U) [Mass/Vol] Negative NEGATIVE [facility] Color (U) Straw Straw, Yellow [facility] Glucose Auto test strip (U) [Mass/Vol] Negative NEGATIVE mg/dL [facility] Interpretation and review of laboratory results Abnormal [facility] Ketones (U) [Mass/Vol] 80 (2+) Abnormal NEGATIVE mg/d L [facility] Leukocyte esterase Auto test strip Ql (U) Negative NEGATIVE [facility] Mucus Auto (Urine sed) [#/Area] 1+ Reference range not established. /LPF [facility] Nitrite Auto test strip Ql (U) Negative NEGATIVE [facility] pH (U) 5.0 [pH] 5.0, 5.5, 6.0, 6.5, 7.0, 7.5, 8.0 [facility] Protein (U) [Mass/Vol] 30 (1+) Abnormal NEGATIVE mg/d L [facility] RBC (U) [#/Vol] MODERATE (2+) Abnormal NEGATIVE [facility] RBC Auto (Urine sed) [#/Area] 1-2 NONE, 1-2, 3-5 /HPF [facility] Specific gravity (U) [Rel density] 1.017 1.005 - 1.035 [facility] Urobilinogen (U) [Mass/Vol] mg/dL NINF - 2.0 mg/dL [facility] WBC Auto (Urine sed) [#/Area] 1-5 1-5, NONE /HPF [facility] Appearance (U) Clear Normal Clear [facility] Comment on above: Performed By: #### 5 8077-9 #### MELISSA WHITEHEAD ([id number]) [facility] ([facility]) [address] [place] [address] Bilirubin (U) [Mass/Vol] Negative Normal NEGATIVE [facility] Comment on above: Performed By: #### 5 8077-9 #### MELISSA WHITEHEAD ([id number]) [facility] ([facility]) [address] [place], [place] [id number] Color (U) Straw Normal Straw, Yellow [facility] Comment on above: Performed By: #### 5 8077-9 #### MELISSA WHITEHEAD ([id number]) [facility] ([facility]) [address] [place] [address] 03766 Glucose Auto test strip (U) [Mass/Vol] Negative Normal NEGATIVE [facility] Comment on above: Performed By: #### 5 8077-9 #### MELISSA WHITEHEAD ([id number]) [facility] ([facility]) [address] [place] [address] 59223 Ketones (U) [Mass/Vol] 80 (2+) Abnormal NEGATIVE [facility] Comment on above: Performed By: #### 5 8077-9 #### MELISSA WHITEHEAD ([id number]) [facility] ([facility]) [address] [place] [address] 73097 Leukocyte esterase Auto test strip Ql (U) Negative Normal NEGATIVE [facility] Comment on above: Performed By: #### 5 8077-9 #### MELISSA WHITEHEAD ([id number]) [facility] ([facility]) [address] [place] [address] Mucus Auto (Urine sed) [#/Area] 1+ /LPF Normal Reference range not established. [facility] Comment on above: Performed By: #### 5 8077-9 #### MELISSA WHITEHEAD ([id number]) [facility] ([facility]) [address] [place] [address] Nitrite Auto test strip Ql (U) Negative Normal NEGATIVE [facility] Comment on above: Performed By: #### 5 8077-9 #### MELISSA WHITEHEAD ([id number]) [facility] ([facility]) [address] [place] [address] 08907 pH (U) 5.0 [pH] Normal 5.0, 5.5, 6.0, 6.5, 7.0, 7.5, 8.0 [facility] Comment on above: Performed By: #### 5 8077-9 #### MELISSA WHITEHEAD ([id number]) [facility] ([facility]) [address] [place] [address] 04944 Protein (U) [Mass/Vol] 30 (1+) Normal NEGATIVE [facility] Comment on above: Performed By: #### 5 8077-9 #### MELISSA WHITEHEAD ([id number]) [facility] ([facility]) [address] [place] [address] 88350 RBC (U) [#/Vol] MODERATE (2+) Abnormal NEGATIVE [facility] Comment on above: Performed By: #### 5 8077-9 #### MELISSA WHITEHEAD ([id number]) [facility] ([facility]) [address] [place] [address] RBC Auto (Urine sed) [#/Area] 1-2 Normal NONE, 1-2, 3-5 [facility] Comment on above: Performed By: #### 5 8077-9 #### MELISSA WHITEHEAD ([id number]) [facility] ([facility]) [address] [place] [address] Specific gravity (U) [Rel density] 1.017 Normal 1.005-1.035 [facility] Comment on above: Performed By: #### 5 8077-9 #### MELISSA WHITEHEAD ([id number]) [facility] ([facility]) [address] [place] [address] Urobilinogen (U) [Mass/Vol] mg/dL Normal <2.0 [facility] Comment on above: Performed By: #### 5 8077-9 #### MELISSA WHITEHEAD ([id number]) [facility] ([facility]) [address] [place] [address] WBC Auto (Urine sed) [#/Area] 1-5 Normal 1-5, NONE [facility] Comment on above: Performed By: #### 5 8077-9 #### MELISSA WHITEHEAD ([id number]) [facility] ([facility]) [address] [place] [address] CBC W Auto Differential pane l (Bld)on 06-18-2023 Basophils (Bld) [#/Vol] 0.03 10*3/uL [facility] Basophils/100 WBC (Bld) 0.5 % 0.0 - 2.0 % [facility] Eosinophils (Bld) [#/Vol] 0.05 10*3/uL [facility] Eosinophils/100 WBC (Bld) 0.9 % 0.0 - 6.0 % [facility] Erythrocyte distribution width (RBC) [Ratio] 14.7 % High 11.5 - 14.5 % [facility] Hematocrit (Bld) [Volume fraction] 40.2 % 36.0 - 46.0 % [facility] Hemoglobin (Bld) [Mass/Vol] 12.7 g/dL 12.0 - 16.0 g/dL [facility] Immature granulocytes (Bld) [#/Vol] 0.01 10*3/uL [facility] Immature granulocytes/100 WBC (Bld) 0.2 % 0.0 - 0.9 % [facility] Comment on above: Immature Granulocyte Count (IG) includes promyelocytes, myelocytes and metamyelocytes but does not include bands. Percent differential counts (%) should be interpreted in the context of the absolute cell counts (cells/UL). Interpretation and review of laboratory results Abnormal [facility] Lymphocytes (Bld) [#/Vol] 3.08 10*3/uL [facility] Lymphocytes/100 WBC (Bld) 56.4 % 13.0 - 44.0 % [facility] MCH (RBC) [Entitic mass] 28.0 pg 26.0 - 34.[address] [facility] MCHC (RBC) [Mass/Vol] 31.6 g/dL Low 32.0 - 36.0 g/dL [facility] MCV (RBC) [Entitic vol] 89 fL 80 - [address] [facility] Monocytes (Bld) [#/Vol] 0.38 10*3/uL [facility] Monocytes/100 WBC (Bld) 7.0 % 2.0 - 10.0 % [facility] Neutrophils (Bld) [#/Vol] 1.91 10*3/uL [facility] Comment on above: Percent differential counts (%) should be interpreted in the context of the absolute cell counts (cells/uL). Neutrophils/100 WBC (Bld) 35.0 % 40.0 - 80.0 % [facility] Nucleated RBC/100 WBC (Bld) [Ratio] 0.0 % [facility] Platelets (Bld) [#/Vol] 208 10*3/uL [facility] RBC (Bld) [#/Vol] 4.54 10*6/uL [facility] WBC (Bld) [#/Vol] 5.5 10*3/uL [facility] Basophils (Bld) [#/Vol] 0.03 x10*3/uL Normal 0.00-0.10 [facility] Comment on above: Performed By: #### 5 7021-8 #### MELISSA WHITEHEAD ([id number]) [facility] ([facility]) [address] [place] [address] 90994 Basophils/100 WBC (Bld) 0.5 % Normal 0.0-2.0 [facility] Comment on above: Performed By: #### 7021-8 #### MELISSA WHITEHEAD ([id number]) [facility] ([facility]) [address] [place] [address] 73794 Eosinophils (Bld) [#/Vol] 0.05 x10*3/uL Normal 0.00-0.70 [facility] Comment on above: Performed By: #### 7021-8 #### MELISSA WHITEHEAD ([id number]) [facility] ([facility]) [address] [place] [address] 77677 Eosinophils/100 WBC (Bld) 0.9 % Normal 0.0-6.0 [facility] Comment on above: Performed By: #### 7021-8 #### MELISSA WHITEHEAD ([id number]) [facility] ([facility]) [address] [place] [address] 52589 Erythrocyte distribution width (RBC) [Ratio] 14.7 % High 11.5-14.5 [facility] Comment on above: Performed By: #### 7021-8 #### MELISSA WHITEHEAD ([id number]) [facility] ([facility]) [address] [place] [address] 50650 Hematocrit (Bld) [Volume fraction] 40.2 % Normal 36.0-46.0 [facility] Comment on above: Performed By: #### 7021-8 #### MELISSA WHITEHEAD ([id number]) [facility] ([facility]) [address] [place] [address] 71766 Hemoglobin (Bld) [Mass/Vol] 12.7 g/dL Normal 12.0-16.0 [facility] Comment on above: Performed By: #### 7021-8 #### MELISSA WHITEHEAD ([id number]) [facility] ([facility]) [facility] [place] [address] Immature granulocytes (Bld) [#/Vol] 0.01 x10*3/uL Normal 0.00-0.70 [facility] Comment on above: Performed By: #### 5 7021-8 #### MELISSA WHITEHEAD ([id number]) [facility] ([facility]) [address] [place] [address] 21036 Immature granulocytes/100 WBC (Bld) 0.2 % Normal 0.0-0.9 [facility] Comment on above: Result Comment: Betty ture Granulocyte Count (IG) includes promyelocytes, myelocytes and metamyelocytes but does not include bands. Percent differential counts (%) should be interpreted in the context of the absolute cell counts (cells/UL). Performed By: #### 5 7021-8 #### MELISSA WHITEEHAD ([id number]) [facility] ([facility]) [address] [place] [address] 62744 Lymphocytes (Bld) [#/Vol] 3.08 x10*3/uL Normal 1.20-4.80 [facility] Comment on above: Performed By: #### 5 7021-8 #### MELISSA WHITEHEAD ([id number]) [facility] ([facility]) [address] [place] [address] 91567 Lymphocytes/100 WBC (Bld) 56.4 % Normal 13.0-44.0 [facility] Comment on above: Performed By: #### 5 7021-8 #### MELISSA WHITEHEAD ([id number]) [facility] ([facility]) [address] [place] [address] 80325 MCH (RBC) [Entitic mass] 28.0 pg Normal 26.0-34.0 [facility] Comment on above: Performed By: #### 5 7021-8 #### MELISSA WHITEHEAD ([id number]) [facility] ([facility]) [address] [place] [address] 45960 MCHC (RBC) [Mass/Vol] 31.6 g/dL Low 32.0-36.0 [facility] Comment on above: Performed By: #### 5 7021-8 #### MELISSA WHITEHEAD ([id number]) [facility] ([facility]) [address] [place] [address] 01139 MCV (RBC) [Entitic vol] 89 fL Normal 80-100 [facility] Comment on above: Performed By: #### 5 7021-8 #### MELISSA WHITEHEAD ([id number]) [facility] ([facility]) [address] [place] [address] 10202 Monocytes (Bld) [#/Vol] 0.38 x10*3/uL Normal 0.10-1.00 [facility] Comment on above: Performed By: #### 5 7021-8 #### MELISSA WHITEHEAD ([id number]) [facility] ([facility]) [address] [place] [address] 95696 Monocytes/100 WBC (Bld) 7.0 % Normal 2.0-10.0 [facility] Comment on above: Performed By: #### 5 7021-8 #### MELISSA WHITEHEAD ([id number]) [facility] ([facility]) [address] [place] [address] 24323 Neutrophils (Bld) [#/Vol] 1.91 x10*3/uL Normal 1.20-7.70 [facility] Comment on above: Result Comment: Perc ent differential counts (%) should be interpreted in the context of the absolute cell counts (cells/uL). Performed By: #### 5 7021-8 #### MELISSA WHITEHEAD ([id number]) [facility] ([facility]) [address] [place] [address] 07873 Neutrophils/100 WBC (Bld) 35.0 % Normal 40.0-80.0 [facility] Comment on above: Performed By: #### 5 7021-8 #### MELISSA WHITEHEAD ([id number]) [facility] ([facility]) [address] [place] [address] 63939 Nucleated RBC/100 WBC (Bld) [Ratio] 0.0 /100 WBCs Normal 0.0-0.0 [facility] Comment on above: Performed By: #### 5 7021-8 #### MELISSA WHITEHEAD ([id number]) [facility] ([facility]) [address] [place] [address] Platelets (Bld) [#/Vol] 208 x10*3/uL Normal 150-450 [facility] Comment on above: Performed By: #### 5 7021-8 #### MELISSA WHITEHEAD ([id number]) [facility] ([facility]) [address] [place] [address] RBC (Bld) [#/Vol] 4.54 x10*6/uL Normal 4.00-5.20 [facility] Comment on above: Performed By: #### 5 7021-8 #### MELISSA WHITEHEAD ([id number]) [facility] ([facility]) [address] [place] [address] WBC (Bld) [#/Vol] 5.5 x10*3/uL Normal 4.4-11.3 [facility] Comment on above: Performed By: #### 5 7021-8 #### MELISSA WHITEHEAD ([id number]) [facility] ([facility]) [address] [place] [address] Comprehensive metabolic 2000 panelon 06-18-2023 Albumin BCP dye [Mass/Vol] 4.1 g/dL 3.4 - 5.0 g/dL [facility] ALP [Catalytic activity/Vol] 54 U/L 33 - 110 U/L [facility] ALT With P-5'-P [Catalytic activity/Vol] 58 U/L High 7 - 45 U/L [facility] Comment on above: Patients treated wit h Sulfasalazine may generate falsely decreased results for ALT. Anion gap [Moles/Vol] 10 mmol/L 10 - 20 mmol/L [facility] AST With P-5'-P [Catalytic activity/Vol] 27 U/L 9 - 39 U/L [facility] Bilirubin [Mass/Vol] 0.7 mg/dL 0.0 - 1.2 mg/dL [facility] Calcium [Mass/Vol] 8.4 mg/dL Low 8.6 - 10. 3 mg/dL [facility] Chloride [Moles/Vol] 103 mmol/L 98 - 107 mmol/L [facility] CO2 [Moles/Vol] 26 mmol/L 21 - 32 mmol/L [facility] Creatinine [Mass/Vol] 0.83 mg/dL 0.50 - 1.05 mg/dL [facility] eGFR - PINF [facility] Comment on above: Calculations of nick mated GFR are performed using the 2020 CKD-EPI Study Refit equation without the race variable for the IDMS-Traceable creatinine methods. https://jasn.asnjournals.org/content/early/ASN.2020 320810 Glucose [Mass/Vol] 81 mg/dL 74 - 99 mg/dL [facility] Interpretation and review of laboratory results Abnormal [facility] Potassium [Moles/Vol] 3.4 mmol/L Low 3.5 - 5.3 mmol/L [facility] Protein [Mass/Vol] 6.1 g/dL Low 6.4 - 8.2 g/dL [facility] Sodium [Moles/Vol] 136 mmol/L 136 - 145 mmol/L [facility] Urea nitrogen [Mass/Vol] 5 mg/dL Low 6 - 23 mg/dL [facility] Albumin BCP dye [Mass/Vol] 4.1 g/dL Normal 3.4-5.0 [facility] Comment on above: Performed By: #### 2 4323-8 #### MELISSA WHITEHEAD ([id number]) [facility] ([facility]) [address] [place] [address] 87270 ALP [Catalytic activity/Vol] 54 U/L Normal 33-110 [facility] Comment on above: Performed By: #### 2 4323-8 #### MELISSA WHITEHEAD ([id number]) [facility] ([facility]) [facility] [place] [address] ALT With P-5'-P [Catalytic activity/Vol] 58 U/L High 7-45 [facility] Comment on above: Result Comment: Gema ents treated with Sulfasalazine may generate falsely decreased results for ALT. Performed By: #### 2 4323-8 #### MELISSA WHITEHEAD ([id number]) [facility] ([facility]) [address] [place] [address] Anion gap [Moles/Vol] 10 mmol/L Normal 10-20 [facility] Comment on above: Performed By: #### 2 4323-8 #### MELISSA WHITEHEAD ([id number]) [facility] ([facility]) [address] [place] [address] 14505 AST With P-5'-P [Catalytic activity/Vol] 27 U/L Normal 9-39 [facility] Comment on above: Performed By: #### 2 4323-8 #### MELISSA WHITEHEAD ([id number]) [facility] ([facility]) [address] [place] [address] 94209 Bilirubin [Mass/Vol] 0.7 mg/dL Normal 0.0-1.2 [facility] Comment on above: Performed By: #### 2 4323-8 #### MELISSA WHITEHEAD ([id number]) [facility] ([facility]) [address] [place] [address] 26281 Calcium [Mass/Vol] 8.4 mg/dL Low 8.6-10.3 [facility] Comment on above: Performed By: #### 2 4323-8 #### MELISSA WHITEHEAD ([id number]) [facility] ([facility]) [address] [place] [address] 86789 Chloride [Moles/Vol] 103 mmol/L Normal 98-107 [facility] Comment on above: Performed By: #### 2 4323-8 #### MELISSA WHITEHEAD ([id number]) [facility] ([facility]) [address] [place] [address] 89128 CO2 [Moles/Vol] 26 mmol/L Normal 21-32 [facility] Comment on above: Performed By: #### 2 4323-8 #### MELISSA WHITEHEAD ([id number]) [facility] ([facility]) [address] [place] [address] 83366 Creatinine [Mass/Vol] 0.83 mg/dL Normal 0.50-1.05 [facility] Comment on above: Performed By: #### 2 4323-8 #### MELISSA WHITEHEAD ([id number]) [facility] ([facility]) [address] [place] [address] 03015 GFR/1.73 sq M.predicted MDRD (S/P/Bld) [Vol rate/Area] mL/min/{1.73_m2} Normal >60 [facility] Comment on above: Result Comment: Calc ulations of estimated GFR are performed using the 2020 CKD-EPI Study Refit equation without the race variable for the IDMS-Traceable creatinine methods. https://jasn.asnjournals.org/content/early//ASN.2020 831371 Performed By: #### 2 4323-8 #### MELISSA WHITEHEAD ([id number]) [facility] ([facility]) [address] [place] [address] 16310 Glucose [Mass/Vol] 81 mg/dL Normal 74-99 [facility] Comment on above: Performed By: #### 2 4323-8 #### MELISSA WHITEHEAD ([id number]) [facility] ([facility]) [address] [place] [address] 73514 Potassium [Moles/Vol] 3.4 mmol/L Low 3.5-5.3 [facility] Comment on above: Performed By: #### 2 4323-8 #### MELISSA WHITEHEAD ([id number]) [facility] ([facility]) [address] [place] [address] 34399 Protein [Mass/Vol] 6.1 g/dL Low 6.4-8.2 [facility] [facility] Comment on above: Performed By: #### 2 4323-8 #### MELISSA WHITEHEAD ([id number]) [facility] ([facility]) [address] [place] [address]40 Sodium [Moles/Vol] 136 mmol/L Normal 136-145 [facility] Comment on above: Performed By: #### 2 4323-8 #### MELISSA WHITEHEAD ([id number]) [facility] ([facility]) [facility] [place] [address] Urea nitrogen [Mass/Vol] 5 mg/dL Low 08-02 [facility] Comment on above: Performed By: #### 2 4323-8 #### MELISSA WHITEHEAD ([id number]) [facility] ([facility]) [address] [place] [address] 33332 Lipaseon 06-18-2023 Lipase [Catalytic activity/Vol] 36 U/L U/L [facility] Lipase [Catalytic activity/V ol]on 06-18-2023 Interpretation and review of laboratory results Normal [facility] Venipuncture immediately after or during the administration of Metamizole may lead to falsely low results. Testing should be performed immediately prior to Metamizole dosing. [facility] No Panel Informationon 06-17 [facility] Triacylglycerol lipaseon Lipase [Catalytic activity/Vol] 36 U/L [facility] Comment on above: Order Comment: Venip uncture immediately after or during the administration of Metamizole may lead to falsely low results. Testing should be performed immediately prior to Metamizole dosing. Performed By: #### 3 040-3 #### MELISSA WHITEHEAD ([id number]) [facility] ([facility]) [address] [place] [address] 85030 Urinalysis complete W Reflex Culture panel (U)on 06-18-2023 Appearance (U) Hazy Abnormal Clear [facility] Bilirubin (U) [Mass/Vol] Negative NEGATIVE [facility] Color (U) Yellow Straw, Yellow [facility] Glucose Auto test strip (U) [Mass/Vol] Negative NEGATIVE mg/dL [facility] Interpretation and review of laboratory results Abnormal [facility] Ketones (U) [Mass/Vol] 80 (2+) Abnormal NEGATIVE mg/d L [facility] Leukocyte esterase Auto test strip Ql (U) Negative NEGATIVE [facility] Nitrite Auto test strip Ql (U) Negative NEGATIVE [facility] pH (U) 6.0 [pH] 5.0, 5.5, 6.0, 6.5, 7.0, 7.5, 8.0 [facility] Protein (U) [Mass/Vol] Negative NEGATIVE mg/d L [facility] RBC (U) [#/Vol] Negative NEGATIVE [facility] Specific gravity (U) [Rel density] 1.019 1.005 - 1.035 [facility] Urobilinogen (U) [Mass/Vol] mg/dL NINF - 2.0 mg/dL [facility] Appearance (U) Hazy Normal Clear [facility] Comment on above: Performed By: #### 5 8077-9 #### MELISSA WHITEHEAD ([id number]) [facility] ([facility]) [address] [place] [address] Bilirubin (U) [Mass/Vol] Negative Normal NEGATIVE [facility] Comment on above: Performed By: #### 5 8077-9 #### MELISSA WHITEHEAD ([id number]) [facility] ([facility]) [address] [place] [address] Color (U) Yellow Normal Straw, Yellow [facility] Comment on above: Performed By: #### 5 8077-9 #### MELISSA WHITEHEAD ([id number]) [facility] ([facility]) [address] [place] [address] Glucose Auto test strip (U) [Mass/Vol] Negative Normal NEGATIVE [facility] Comment on above: Performed By: #### 5 8077-9 #### MELISSA WHITEHEAD ([id number]) [facility] ([facility]) [address] [place], [place] [id number] Ketones (U) [Mass/Vol] 80 (2+) [facility]: Performed By: #### 5 8077-9 #### MELISSA WHITEHEAD ([id number]) [facility] ([facility]) [address] [place] [address] 35355 Leukocyte esterase Auto test strip Ql (U) Negative Normal NEGATIVE [facility] Comment on above: Performed By: #### 5 8077-9 #### MELISSA WHITEHEAD ([id number]) [facility] ([facility]) [address] [place] [address] 68355 Nitrite Auto test strip Ql (U) Negative Normal NEGATIVE [facility] Comment on above: Performed By: #### 5 8077-9 #### MELISSA WHITEHEAD ([id number]) [facility] ([facility]) [address] [place] [address] 22443 pH (U) 6.0 [pH] Normal 5.0, 5.5, 6.0, 6.5, 7.0, 7.5, 8.0 [facility] Comment on above: Performed By: #### 5 8077-9 #### MELISSA WHITEHEAD ([id number]) [facility] ([facility]) [address] [place] [address] 51933 Protein (U) [Mass/Vol] Negative Normal NEGATIVE [facility] Comment on above: Performed By: #### 5 8077-9 #### MELISSA WHITEHEAD ([id number]) [facility] ([facility]) [address] [place] [address] 48729 RBC (U) [#/Vol] Negative Normal NEGATIVE [facility] Comment on above: Performed By: #### 5 8077-9 #### MELISSA WHITEHEAD ([id number]) [facility] ([facility]) [address] [place] [address] 14805 Specific gravity (U) [Rel density] 1.019 Normal 1.005-1.035 [facility] Comment on above: Performed By: #### 5 8077-9 #### MELISSA WHITEHEAD ([id number]) [facility] ([facility]) [address] [place] [address]505 Urobilinogen (U) [Mass/Vol] mg/dL Normal <2.0 [facility] Comment on above: Performed By: #### 5 8077-9 #### MELISSA WHITEHEAD ([id number]) [facility] ([facility]) [address] [place] [address] 65862 Surgical pathology studyon 0 06-17-2023 Surgical pathology study Pathology report.total SEE COMMENT Surgical Pathology Case: [id number] Authorizing Provider: Alla Llanes MD Collected: 06/17/2023 0958 Ordering Location: [facility] Received: 06/17/2023 1600 Center OR Pathologist: Cata Agustin MD PhD Specimen: GALLBLADDER CHOLECYSTECTOMY, gallbladder Path report.final diagnosis SEE COMMENT A. Gallbladder, cholecystectomy: -Cholelithiasis. -One benign lymph node. Laboratory comment By the signature on this report, the individual or group listed as making the Final Interpretation/Diagn osis certifies that they have reviewed this case. Path report.relevant Hx SEE COMMENT Pre-op diagnosis: Symptomatic cholelithiasis [K80.20] Path report.gross observation SEE COMMENT A: Received in formalin, labeled with the patient's name and hospital number and gallbladder, is an intact gallbladder, opened for fixation, measuring 8.3 x 4.3 x 1.2 cm. The serosal surface is smooth, glistening, and blue-rene. The wall measures up to 0.2 cm in greatest thickness. The lumen contains bile, and possible blood. A calculus is present and is yellow and granulated, measuring 0.7 cm in greatest dimension. The calculus has a yellow-white crystalline cut surface. A calculus is impacted in the cystic duct. The mucosal surface is bile-stained, and demonstrates striations. Adjacent to the cystic duct margin is a possible lymph node measuring 1.0 cm in greatest dimension. [employer] sections consisting of the cystic duct margin, and gallbladder wall, and lymph node are submitted in one cassette. [facility] Comment on above: Order Comment: Pre-o p diagnosis:Symptomatic cholelithiasis [K80.20] URINE OB DIP B/Oon 3 Glucose Ql (U) Negative Neg mg/dL [facility] Protein.monoclonal (U) [Mass/Vol] Negative Neg mg/dL [facility] URINE OB DIP B/Oon 3 Glucose Ql (U) Negative Neg mg/dL [facility] Protein.monoclonal (U) [Mass/Vol] Negative Neg mg/dL [facility] URINE OB DIP B/Oon 3 Glucose Ql (U) Negative Neg mg/dL [facility] Protein.monoclonal (U) [Mass/Vol] Negative Neg mg/dL [facility] Absolute lymphocyte countOrd ered By: Neelima Dahl on 09-24-2022 Lymphocytes Auto (Unsp spec) [#/Vol] 1.26 10*3/uL 0.83-4.51 [facility] Automated blood hematocrit ( percentage)Ordered By: Neelima Dahl on 09-24-2022 Hematocrit (Bld) [Volume fraction] 30.4 % 37-47 [facility] Basophil percentageOrdered B y: Neelima Dahl on 09-24-2022 Basophils/100 WBC (Bld) 0.4 % 0-1 [facility] Eosinophils/100 WBC (Bld) 1.1 % 0-5 [facility] Neutrophils (Bld) [#/Vol] 3.7 10*3/uL 2.0-7.7 [facility] Neutrophils/100 WBC (Bld) 65.8 % 47-70 [facility] WBC (Bld) [#/Vol] 5.6 10*3/uL 4.4-11.0 [facility] Blood erythrocytes count (nu mber/volume)Ordered By: Neelima Dahl on 09-24-2022 RBC (Bld) [#/Vol] 3.21 10*6/uL 4.2-5.4 [facility] Blood hemoglobin measurement (mass/volume)Ordered By: Neelima Dahl on 09-24-2022 Hemoglobin (Bld) [Mass/Vol] 9.6 g/dL 12.0-15.0 [facility] Blood lymphocytes/100 leukoc ytesOrdered By: Neelima Dahl on 09-24-2022 Lymphocytes/100 WBC (Bld) 22.6 % 19-41 [facility] Blood monocytes/100 leukocyt esOrdered By: Neelima Dahl on 09-24-2022 Monocytes/100 WBC (Bld) 9.9 % 0-10 [facility] Blood platelet mean volumeOr dered By: Neelima Dahl on 09-24-2022 Platelet mean volume (Bld) [Entitic vol] 12.7 fL 6.2-12.0 [facility] Determination of erythrocyte mean corpuscular volume (MCV)Ordered By: Neelima Dahl on 09-24-2022 MCV (RBC) [Entitic vol] 94.7 fL 81-99 [facility] GEST GLUC SCREEN, 1-HR, 50 G M, NON-FASTINGon 09-24-2022 Glucose 1hr Gest 93 [facility] Gestational diabetes screen 1-hour screen with 50g oral glucose loadOrdered By: Neelima Dahl on 09-24-2022 Glucose 1 Hr post 50 g glucose PO [Mass/Vol] 93 mg/dL 70-140 [facility] Laboratory - Hematology and Cell countsOrdered By: Neelima Dahl on 09-24-2022 Erythrocyte distribution width (RBC) [Entitic vol] 45.2 fL 35.1-43.9 [facility] Erythrocyte distribution width (RBC) [Ratio] 13.1 % 11.6-14.6 [facility] Immature granulocytes/100 WBC (Bld) 0.200 % 0.0-0.9 [facility] Comment on above: IG% - Immature Granu locytes (promyelocytes, myelocytes and metamyelocytes) > 1% indicates that a LEFT SHIFT is Present. MCH (RBC) [Entitic mass] 29.9 pg 27.0-32.0 [facility] Nucleated RBC/100 WBC (Bld) [Ratio] 0 % 0-5 [facility] MCHC Auto (RBC) [Mass/Vol]Or dered By: Neelima Dahl on 09-24-2022 MCHC (RBC) [Mass/Vol] 31.6 g/dL 32-36 [facility] Platelets bldOrdered By: Curtis Dahl on 09-24-2022 Platelets (Bld) [#/Vol] 132 10*3/uL 150-450 [facility] Reagin and Treponema pallidu m IgG and IgM [Interp]on 09-24-2022 T. pallidum IgG+IgM IA Ql (S) Non-Reactive Nonreactive [facility] Serum Treponema species anti body detectionOrdered By: Neelima Dahl on 09-24-2022 Treponema sp Ab Ql (S) Non-Reactive [facility] Absolute lymphocyte countOrd ered By: Jimmy Anna on 08-29-2022 Lymphocytes Auto (Unsp spec) [#/Vol] 1.26 10*3/uL 0.83-4.51 [facility] Basophil percentageOrdered B y: Jimmy Anna on 08-29-2022 Basophil percentage 0-5 SEEN /hpf 0-5 [facility] Basophils/100 WBC (Bld) 0.2 % 0-1 [facility] Bilirubin [Mass/Vol] 0.40 mg/dL 0.20-1.00 [facility] Comment on above: For patients on eltr ombopag therapy, use of Dimension [place] TBIL is not recommended. Chloride [Moles/Vol] 108 mmol/L 98-107 [facility] Eosinophils/100 WBC (Bld) 0.8 % 0-5 [facility] Glucose [Mass/Vol] 77 mg/dL 74-106 [facility] Neutrophils (Bld) [#/Vol] 7.2 10*3/uL 2.0-7.7 [facility] Neutrophils/100 WBC (Bld) 78.5 % 47-70 [facility] Potassium [Moles/Vol] 3.9 mmol/L 3.5-5.1 [facility] Protein [Mass/Vol] 5.6 g/dL 6.4-8.2 [facility] Sodium [Moles/Vol] 138 mmol/L 136-145 [facility] WBC (Bld) [#/Vol] 9.1 10*3/uL 4.4-11.0 [facility] Bilirubin Test strip Ql (U)O rdered By: Jimmy Anna on 08-29-2022 Bilirubin Ql (U) Negative Negative [facility] Blood erythrocytes count (nu mber/volume)Ordered By: Jimmy Anna on 08-29-2022 RBC (Bld) [#/Vol] 3.23 10*6/uL 4.2-5.4 [facility] Blood hemoglobin measurement (mass/volume)Ordered By: Jimmy Anna on 08-29-2022 Hemoglobin (Bld) [Mass/Vol] 9.8 g/dL 12.0-15.0 [facility] Blood lymphocytes/100 leukoc ytesOrdered By: Jimmy Anna on 08-29-2022 Lymphocytes/100 WBC (Bld) 13.8 % 19-41 [facility] Blood monocytes/100 leukocyt esOrdered By: Jimmy Anna on 08-29-2022 Monocytes/100 WBC (Bld) 6.4 % 0-10 [facility] Blood platelet mean volumeOr dered By: Jimmy Anna on 08-29-2022 Platelet mean volume (Bld) [Entitic vol] 12.2 fL 6.2-12.0 [facility] Determination of erythrocyte mean corpuscular volume (MCV)Ordered By: Jimmy Anna on 08-29-2022 MCV (RBC) [Entitic vol] 95.4 fL 81-99 [facility] Hematocrit Auto (Bld) [Volum e fraction]Ordered By: Jimmy Anna on 08-29-2022 Hematocrit (Bld) [Volume fraction] 30.8 % 37-47 [facility] Ketones Test strip Ql (U)Ord ered By: Jimmy Anna on 08-29-2022 Ketones Ql (U) 50 mg/dl Negative [facility] Laboratory - Chemistry and C hemistry - challengeOrdered By: Jimmy Anna on 08-29-2022 ALP [Catalytic activity/Vol] 54 U/L 45-117 [facility] ALT [Catalytic activity/Vol] 19 U/L 13-56 [facility] CO2 [Moles/Vol] 23.0 mmol/L 21.0-32.0 [facility] Globulin (S) [Mass/Vol] 3.1 g/dL 2.2-4.2 [facility] Lipase [Catalytic activity/Vol] 25 U/L -75 [facility] Comment on above: Please note:LIPASE r evised reference range effective 22. New Lipase methodology. Expected to produce lower values than the previous assay method. NEW Reference Range: 13 - 75 U/L Urea nitrogen/Creatinine [Mass ratio] 15.5 mg/mg 10-20 [facility] - Hematology and Cell countsOrdered By: Jimmy Anna on 08-29-2022 Erythrocyte distribution width (RBC) [Entitic vol] 47.0 fL 35.1-43.9 [facility] Erythrocyte distribution width (RBC) [Ratio] 13.4 % 11.6-14.6 [facility] Immature granulocytes/100 WBC (Bld) 0.300 % 0.0-0.9 [facility] Comment on above: IG% - Immature Granu locytes (promyelocytes, myelocytes and metamyelocytes) > 1% indicates that a LEFT SHIFT is Present. MCH (RBC) [Entitic mass] 30.3 pg 27.0-32.0 [facility] Nucleated RBC/100 WBC (Bld) [Ratio] 0 % 0-5 [facility] MCHC Auto (RBC) [Mass/Vol]Or dered By: Jimmy Anna on 08-29-2022 MCHC (RBC) [Mass/Vol] 31.8 g/dL 32-36 [facility] Mucus LM Ql (Urine sed)Order ed By: Jimmy Anna on 08-29-2022 Mucus Ql (Urine sed) 1+ /hpf [facility] Nitrite Test strip Ql (U)Ord ered By: Jimmy Anna on 08-29-2022 Nitrite Ql (U) Negative Negative [facility] No Panel InformationOrdered By: Jimmy Anna on 08-29-2022 Estimated Creatinine Clearance Calc 143.95 ml/min [facility] Estimated GFR (MDRD) Amer 196 mL/min >60 [facility] Comment on above: GFR Calc Estimated GFR (MDRD) Non-Af Amer 162 mL/min >60 [facility] Comment on above: Non- GFR Calc Platelets bldOrdered By: Nicky Anna on 08-29-2022 Platelets (Bld) [#/Vol] 142 10*3/uL 150-450 [facility] Protein Test strip Ql (U)Ord ered By: Jimmy Anna on 08-29-2022 Protein Ql (U) 15 mg/dl Negative [facility] Serum or plasma albumin reynaldo urement (mass/volume)Ordered By: Jimmy Anna on 08-29-2022 Albumin [Mass/Vol] 2.5 g/dL 3.2-5.0 [facility] Serum or plasma albumin/glob ulin mass ratioOrdered By: Jimmy Anna on 08-29-2022 Albumin/Globulin [Mass ratio] 0.8 {ratio} 0.9-2.4 [facility] Serum or plasma calcium reynaldo urement (mass/volume)Ordered By: Jimmy Anna on 08-29-2022 Calcium [Mass/Vol] 7.7 mg/dL 8.5-10.1 [facility] Serum or plasma creatinine m easurement (mass/volume)Ordered By: Jimmy Anna on 08-29-2022 Creatinine [Mass/Vol] 0.52 mg/dL 0.55-1.02 [facility] Comment on above: The validity of the calculated GFR & GFRAA in patients over 70 years has not been determined. Clinical correlation is essential. Serum or plasma urea nitroge n measurement (mass/volume)Ordered By: Jimmy Anna on 08-29-2022 Urea nitrogen [Mass/Vol] 8 mg/dL 7-18 [facility] Squamous epithelial cells de tection in urine sediment by light microscopyOrdered By: Jimmy Anna on 08-29-2022 Epithelial cells.squamous LM Ql (Urine sed) 0-5 SEEN /hpf 5-10 [facility] Thin prep Papanicolaou smear with manual screeningOrdered By: Jimmy Anna on 08-29-2022 Thin prep Papanicolaou smear with manual screening 17 U/L 15-37 [facility] Thin prep Papanicolaou smear with manual screening 7 5-15 [facility] Urine blood detectionOrdered By: Jimmy Anna on 08-29-2022 RBC Ql (U) Negative Negative [facility] RBC Ql (U) 0 SEEN /hpf 0-5 [facility] Urine clarityOrdered By: Nicky Anna on 08-29-2022 Clarity (U) Sl. Cloudy Clear [facility] Urine color determinationOrd ered By: Jimmy Anna on 08-29-2022 Color (U) Yellow Yellow [facility] Urine glucose detectionOrder ed By: Jimmy Anna on 08-29-2022 Glucose Ql (U) Normal mg/dl Normal [facility] Urine leukocyte esterase det ection by dipstickOrdered By: Jimmy Anna on 08-29-2022 Leukocyte esterase Test strip Ql (U) 25 /ul Negative [facility] Urine pHOrdered By: Jimmy denise on 08-29-2022 pH (U) 6.0 [pH] 5.0 - 8.0 [facility] Urine sediment bacteria coun t by microscopy (number/high power field)Ordered By: Jimmy Anna on 08-29-2022 Bacteria LM.HPF (Urine sed) [#/Area] Not Reportable [facility] Urine specific gravity measu rementOrdered By: Jimmy Anna on 08-29-2022 Specific gravity (U) [Rel density] 1.020 1.002-1.030 [facility] Urobilinogen Auto test strip Ql (U)Ordered By: Jimmy Anna on 08-29-2022 Urobilinogen Ql (U) Normal mg/dl Normal [facility] Initial Visit (General Surge ry)on 08-22-2022 Initial Visit (General Surgery) Diagnoses/Problems Cholelithiasis (574.20) (K80.20) Provider Impressions Ms. Alicia is a 21-year-old female with symptomatic cholelithiasis. She has had 2 isolated episodes of symptoms about 1 month apart, both with onset following fast food, and was symptom-free in between these episodes. She is currently 22 weeks . We discussed that cholecystectomy is an option, although if she would want to proceed with this we would have to do it while she is still in her second trimester. We discussed the alternative of waiting until she has delivered and proceeding with cholecystectomy . We discussed the risks are involved either way. There is a small risk of labor if we proceed with surgery. There is also risk of additional episodes of pain if we elect not to do surgery. She would prefer to wait until to proceed with surgery. I will therefore see her back in December and anticipate scheduling cholecystectomy in early January. We discussed following a low fat diet and avoiding fast food. 1 She was advised that if she has any yellowing of the skin or fever associated with an episode of RUQ pain that she would need urgent re-evaluation. 1 Amended By: Alla Llanes; Aug 22 2022 10:21 AM ESTChief Complaint Right upper quadrant abdominal pain History of Present IllnessMs. Alicia is a 21-year-old female seen in follow-up from recent emergency department visit on 07/12/22 for symptomatic cholelithiasis. She is currently , her due date is December 25. During this , she has had 2 isolated episodes of right upper quadrant abdominal pain that radiates to her back. She has nausea and vomiting associated with this pain. In between episodes, she denies any similar symptoms. The first episode lasted 3 hours. The second episode lasted 9 hours. On both occasions, she was evaluated in the emergency department. LFTs and WBC were within normal limits. Ultrasound showed stones within the gallbladder but no acute inflammation or biliary ductal dilation. The first episode began after eating an [employer] roast beef sandwich. The second episode began after eating a hamburger. She denies any symptoms prior to this . Review of Systems Constitutional: no fever, sweats, and chills Cardiovascular: No chest pain or palpitations Respiratory: No cough or shortness of breath Gastrointestinal: + Right upper quadrant abdominal pain with associated nausea and vomiting Genitourinary: no dark-colored urine, + Musculoskeletal: no weakness or swelling Integumentary: no jaundice Neurological: no confusion Endocrine: no heat or cold intolerance Heme/Lymph: no easy bruising or bleeding Active Problems Cholelithiasis (574.20) (K80.20) (V22.2) (Z34.90) Surgical History History of Tonsillectomy with adenoidectomy Family History No family history of hepatobiliary disease Social History Non-smoker. No alcohol or drug use. Allergies No Known Drug Allergies Recorded By: Faiza Wheat; 08/22/2022 9:46:15 AM Current Meds Medication NameInstruction TABS Zofran 24 MG TABS (Ondansetron HCl) Vitals Vital Signs Recorded: [id number] 09:45AM Heart Yoct253 Suvgkxnl548 Jmqnvkhuz44 Height5 ft 3 in 2-20 Stature Xyuzwfecme58 % Ubgbdl906 lb 2-20 Weight Xtnwtinfhw56 % BMI Wobqdetmvp21.38 kg/m2 BMI Wcivpuzukz10 % BSA Calculated1.62 Tobacco Useb) No Falls Screening (Age 18+)a) No falls within the last year Physical Exam Constitutional: No acute distress, conversant, pleasant Neurologic: alert and oriented Psych: appropriate affect Ears, Nose, Mouth and Throat: mucus membranes moist Pulmonary: No labored breathing Cardiovascular: Regular rate and rhythm Abdomen: soft, nondistended, fundal height at the level of umbilicus, petite and thin with BMI 23, nontender palpation, umbilical piercing scar, no other abdominal scars Musculoskeletal: Moves all extremities, warm, no edema Skin: No jaundice Results/Data Labs from 07/12/22 reviewed: WBC 6.3, hemoglobin 10.7, LFTs within normal limits including T. bili 0.4 RUQ US from 07/12/22 reviewed: Multiple stones within the gallbladder, no pericholecystic fluid or wall thickening. Sonographic Maynard sign negative. No biliary ductal dilation, CBD measures 4 mm. Signatures Electronically signed by : Alla Llanes MD; Aug 22 2022 10:21AM EST (Author) Normal [employer] Absolute lymphocyte countOrd ered By: Kristofer Low on 08-17-2022 Lymphocytes Auto (Unsp spec) [#/Vol] 1.32 10*3/uL 0.83-4.51 [facility] Basophil percentageOrdered B y: Kristofer Low on 08-17-2022 Basophils/100 WBC (Bld) 0.2 % 0-1 [facility] Bilirubin [Mass/Vol] 0.30 mg/dL 0.20-1.00 [facility] Comment on above: For patients on eltr ombopag therapy, use of Dimension [place] TBIL is not recommended. Chloride [Moles/Vol] 108 mmol/L 98-107 [facility] Eosinophils/100 WBC (Bld) 0.5 % 0-5 [facility] Glucose [Mass/Vol] 79 mg/dL 74-106 [facility] Neutrophils (Bld) [#/Vol] 6.5 10*3/uL 2.0-7.7 [facility] Neutrophils/100 WBC (Bld) 76.2 % 47-70 [facility] Potassium [Moles/Vol] 4.0 mmol/L 3.5-5.1 [facility] [facility] Protein [Mass/Vol] 5.6 g/dL 6.4-8.2 [facility] Sodium [Moles/Vol] 137 mmol/L 136-145 [facility] WBC (Bld) [#/Vol] 8.5 10*3/uL 4.4-11.0 [facility] Blood erythrocytes count (nu mber/volume)Ordered By: Kristofer Low on 08-17-2022 RBC (Bld) [#/Vol] 3.21 10*6/uL 4.2-5.4 [facility] Blood hemoglobin measurement (mass/volume)Ordered By: Kristofer Low on 08-17-2022 Hemoglobin (Bld) [Mass/Vol] 10.0 g/dL 12.0-15.0 [facility] Blood lymphocytes/100 leukoc ytesOrdered By: Kristofer Low on 08-17-2022 Lymphocytes/100 WBC (Bld) 15.6 % 19-41 [facility] Blood monocytes/100 leukocyt esOrdered By: Kristofer Low on 08-17-2022 Monocytes/100 WBC (Bld) 7.1 % 0-10 [facility] Blood platelet mean volumeOr dered By: Kristofer Low on 08-17-2022 Platelet mean volume (Bld) [Entitic vol] 11.8 fL 6.2-12.0 [facility] Determination of erythrocyte mean corpuscular volume (MCV)Ordered By: Kristofer Low on 08-17-2022 MCV (RBC) [Entitic vol] 94.7 fL 81-99 [facility] Hematocrit Auto (Bld) [Volum e fraction]Ordered By: Kristofer Low on 08-17-2022 Hematocrit (Bld) [Volume fraction] 30.4 % 37-47 [facility] Laboratory - Chemistry and C hemistry - challengeOrdered By: Kristofer Low on 08-17-2022 ALP [Catalytic activity/Vol] 58 U/L 45-117 [facility] ALT [Catalytic activity/Vol] 28 U/L 13-56 [facility] CO2 [Moles/Vol] 24.0 mmol/L 21.0-32.0 [facility] Globulin (S) [Mass/Vol] 3.2 g/dL 2.2-4.2 [facility] Lipase [Catalytic activity/Vol] 28 U/L 13-75 [facility] Comment on above: Please note:LIPASE r evised reference range effective 22. New Lipase methodology. Expected to produce lower values than the previous assay method. NEW Reference Range: 13 - 75 U/L Urea nitrogen/Creatinine [Mass ratio] 15.9 mg/mg 10-20 [facility] Laboratory - Hematology and Cell countsOrdered By: Kristofer Low on 08-17-2022 Erythrocyte distribution width (RBC) [Entitic vol] 47.7 fL 35.1-43.9 [facility] Erythrocyte distribution width (RBC) [Ratio] 13.8 % 11.6-14.6 [facility] Immature granulocytes/100 WBC (Bld) 0.400 % 0.0-0.9 [facility] Comment on above: IG% - Immature Granu locytes (promyelocytes, myelocytes and metamyelocytes) > 1% indicates that a LEFT SHIFT is Present. MCH (RBC) [Entitic mass] 31.2 pg 27.0-32.0 [facility] Nucleated RBC/100 WBC (Bld) [Ratio] 0 % 0-5 [facility] MCHC Auto (RBC) [Mass/Vol]Or dered By: Kristofer Low on 08-17-2022 MCHC (RBC) [Mass/Vol] 32.9 g/dL 32-36 [facility] No Panel InformationOrdered By: Kristofer Low on 08-17-2022 Estimated GFR (MDRD) Amer 176 mL/min >60 [facility] Comment on above: GFR Calc Estimated GFR (MDRD) Non-Af Amer 145 mL/min >60 [facility] Comment on above: Non- GFR Calc Platelets bldOrdered By: Lila Low on 08-17-2022 Platelets (Bld) [#/Vol] 137 10*3/uL 150-450 [facility] Serum or plasma albumin reynaldo urement (mass/volume)Ordered By: Kristofer Low on 08-17-2022 Albumin [Mass/Vol] 2.4 g/dL 3.2-5.0 [facility] Serum or plasma albumin/glob ulin mass ratioOrdered By: Kristofer Low on 08-17-2022 Albumin/Globulin [Mass ratio] 0.8 {ratio} 0.9-2.4 [facility] Serum or plasma calcium reynaldo urement (mass/volume)Ordered By: Kristofer Low on 08-17-2022 Calcium [Mass/Vol] 7.6 mg/dL 8.5-10.1 [facility] Serum or plasma creatinine m easurement (mass/volume)Ordered By: Kristofer Low on 08-17-2022 Creatinine [Mass/Vol] 0.56 mg/dL 0.55-1.02 [facility] Comment on above: The validity of the calculated GFR & GFRAA in patients over 70 years has not been determined. Clinical correlation is essential. Serum or plasma urea nitroge n measurement (mass/volume)Ordered By: Kristofer Low on 08-17-2022 Urea nitrogen [Mass/Vol] 9 mg/dL 7-18 [facility] Thin prep Papanicolaou smear with manual screeningOrdered By: Kristofer Low on 08-17-2022 Thin prep Papanicolaou smear with manual screening 46 U/L 15-37 [facility] Thin prep Papanicolaou smear with manual screening 5 5-15 [facility] CBC AND DIFFERENTIALon 07-12 % AUTOMATED IMMATURE GRAN 0.2 % Normal 0.0 - 0.9 [facility] Comment on above: Result Comment: Betty ture Granulocyte Count (IG) includes promyelocytes, myelocytes and metamyelocytes but does not include bands. Percent differential counts (%) should be interpreted in the context of the absolute cell counts (cells/L). Performed By: #### C BCDF #### [address] [address] Basophils (Bld) [#/Vol] 0.02 10*3/uL Normal 0.00 - 0.1 0 [facility] Comment on above: Performed By: #### C BCDF #### [address] [address] Basophils/100 WBC (Bld) 0.3 % Normal 0.0 - 2.0 [facility] Comment on above: Performed By: #### C BCDF #### [address] [address] Eosinophils (Bld) [#/Vol] 0.24 10*3/uL Normal 0.00 - 0.70 [facility] Comment on above: Performed By: #### C BCDF #### [address] [address] Eosinophils/100 WBC (Bld) 3.8 % Normal 0.0 - 6.0 [facility] Comment on above: Performed By: #### C BCDF #### [address] [address] Erythrocyte distribution width (RBC) [Ratio] 14.1 % Normal 11.5 - 14.5 [facility] Comment on above: Performed By: #### C BCDF #### [address] [address] Hematocrit (Bld) [Volume fraction] 32.2 % Low 36.0 - 46.0 [facility] Comment on above: Performed By: #### C BCDF #### [address] [address] Hemoglobin (Bld) [Mass/Vol] 10.7 g/dL Low 12.0 - 16.0 [facility] Comment on above: Performed By: #### C BCDF #### [address] [address] Lymphocytes (Bld) [#/Vol] 1.40 10*3/uL Normal 1.20 - 4.80 [facility] Comment on above: Performed By: #### C BCDF #### [address] [address] Lymphocytes/100 WBC (Bld) 22.2 % Normal 13.0 - 44.0 [facility] Comment on above: Performed By: #### C BCDF #### [address] [address] MCHC (RBC) [Mass/Vol] 33.2 g/dL Normal 32.0 - 36.0 [facility] Comment on above: Performed By: #### C BCDF #### [address] [address] MCV (RBC) [Entitic vol] 93 fL Normal 80 - 100 [facility] Comment on above: Performed By: #### C BCDF #### [address] [address] Monocytes (Bld) [#/Vol] 0.45 10*3/uL Normal 0.10 - 1.0 0 [facility] Comment on above: Performed By: #### C BCDF #### [address] [address] Monocytes/100 WBC (Bld) 7.1 % Normal 2.0 - 10.0 [facility] Comment on above: Performed By: #### C BCDF #### [address] [address] Neutrophils (Bld) [#/Vol] 4.20 10*3/uL Normal 1.20 - 7.70 [facility] Comment on above: Result Comment: Perc ent differential counts (%) should be interpreted in the context of the absolute cell counts (cells/L). Performed By: #### C BCDF #### [address] [address] Neutrophils/100 WBC (Bld) 66.4 % Normal 40.0 - 80.0 [facility] Comment on above: Performed By: #### C BCDF #### [address] [address] Platelets (Bld) [#/Vol] 136 10*3/uL Low 150 - 450 [facility] Comment on above: Performed By: #### C BCDF #### [address] [address] RBC 3.48 x10E12/L Low 4.00 - 5.20 [facility] Comment on above: Performed By: #### C BCDF #### [address] [address] WBC (Bld) [#/Vol] 6.3 10*3/uL Normal 4.4 - 11.3 [facility] Comment on above: Performed By: #### C BCDF #### [address] [address] COMPREHENSIVE PANELon 2022 Albumin [Mass/Vol] 3.4 g/dL Normal 3.4 - 5.0 [facility] Comment on above: Performed By: #### C MP #### [address] [address] ALP [Catalytic activity/Vol] 40 U/L Normal 33 - 110 [facility] Comment on above: Performed By: #### C MP #### [address] [address] ALT [Catalytic activity/Vol] 11 U/L Normal 7 - 45 [facility] Comment on above: Result Comment: Gema ents treated with Sulfasalazine may generate falsely decreased results for ALT. Performed By: #### C MP #### [address] [address] Anion gap [Moles/Vol] 8 mmol/L Low 10 - 20 [facility] Comment on above: Performed By: #### C MP #### [address] [address] AST [Catalytic activity/Vol] 12 U/L Normal 9 - 39 [facility] Comment on above: Performed By: #### C MP #### [address] [address] Bilirubin [Mass/Vol] 0.4 mg/dL Normal 0.0 - 1.2 [facility] Comment on above: Performed By: #### C MP #### [address] [address] Calcium [Mass/Vol] 8.4 mg/dL Low 8.6 - 10.3 [facility] Comment on above: Performed By: #### C MP #### [address] [address] Chloride [Moles/Vol] 104 mmol/L Normal 98 - 107 [facility] Comment on above: Performed By: #### C MP #### [address] [address] Creatinine [Mass/Vol] 0.45 mg/dL Low 0.50 - 1.05 [facility] Comment on above: Performed By: #### C MP #### [address] [address] eGFR FEMALE >90 Normal >90 [facility] Comment on above: Result Comment: CALC ULATIONS OF ESTIMATED GFR ARE PERFORMED USING THE 2020 CKD-EPI STUDY REFIT EQUATION WITHOUT THE RACE VARIABLE FOR THE IDMS-TRACEABLE CREATININE METHODS. https://jasn.asnjournals.org/content//ASN.2020 163892 Performed By: #### C MP #### [address] [address] Glucose [Mass/Vol] 74 mg/dL Normal 74 - 99 [facility] Comment on above: Performed By: #### C MP #### [address] [address] HCO3 (Bld) [Moles/Vol] 27 mmol/L Normal 21 - 32 [facility] Comment on above: Performed By: #### C MP #### [address] [address] Potassium [Moles/Vol] 3.8 mmol/L Normal 3.5 - 5.3 [facility] Comment on above: Performed By: #### C MP #### [address] [address] Protein [Mass/Vol] 5.7 g/dL Low 6.4 - 8.2 [facility] Comment on above: Performed By: #### C MP #### [address] [address] Sodium [Moles/Vol] 135 mmol/L Low 136 - 145 [facility] Comment on above: Performed By: #### C MP #### [address] [address] Urea nitrogen [Mass/Vol] 5 mg/dL Low 6 - 23 [facility] Comment on above: Performed By: #### C MP #### [address] [address] LACTATEon 07-12-2022 Lactate [Moles/Vol] 0.5 mmol/L Normal 0.4 - 2.0 [facility] Comment on above: Result Comment: Nilam puncture immediately after or during the administration of Metamizole may lead to falsely low results. Testing should be performed immediately prior to Metamizole dosing. Performed By: #### L ACT #### [address] [address] LIPASEon 07-12-2022 Lipase [Catalytic activity/Vol] 8 U/L Low 9 - 82 [facility] Comment on above: Result Comment: Nilam puncture immediately after or during the administration of Metamizole may lead to falsely low results. Testing should be performed immediately prior to Metamizole dosing. Z-mbemsp-s-benzoquinone imine (metabolite of Acetaminophen) will generate erroneously low results in samples for patients that have taken toxic doses of acetaminophen. Performed By: #### L IPAS #### [place] [address] Provider Note - ED v3on Provider Note - ED v3 Provider Note: Chart Review: ED NOTES ED NOTES: Source of Information: Patient. EMR was reviewed for previous records. - HPI: Abdominal pain, nausea, vomiting. This 21-year-old white female presents to the ED with complaint of abdominal pain symptoms that began this morning states that the pain is located in the upper quadrants of her abdomen and epigastric area worse on the right than the left with associated nausea and vomiting. She states that she is 16 weeks . She denies any vaginal bleeding or fluid from her vagina. She denies having similar symptoms previously. Patient is 4 para 1 AB 2. Patient states that she has not been able to keep anything down all morning because of the pain and nausea vomiting. She states that nothing seems to make symptoms better or worse. - PMH: -16 weeks PSH: T& A Social Hx: The patient denies any use of tobacco, alcohol or illicit drugs. Patient does admit to vaping nicotine. Fam: MEDS: Libra ALLERGIES: NKDA - PHYSICAL EXAM: General: Patient alert, awake, oriented X3, appears to be in no obvious distress, nontoxic, cooperative Skin: Warm. Dry. Intact. No rash. Eyes: PEARTLA, EOMIs intact, sclera white, conjunctiva clear HEENT: Atraumatic. Normo-cephalic. Oral and nasal mucosa pink and moist. Neck: Supple without meningismus, no lymphadenopathy. CV: Regular rate and rhythm without murmurs, heaves, lifts or thrills. Respiratory: Nonlabored breathing. There are no retractions or tachypnea. Lungs are clear to auscultation bilaterally. GI: Soft, patient has tenderness in epigastrium and right upper quadrant with voluntary guarding., without gross distention, bowel sounds present in all 4 quadrants. There is no pulsatile masses. There is no CVA tenderness. No rebound or rigidity. MUSC: There is no joint swelling or bony tenderness on exam. Neuro: Cranial nerves II - XII grossly intact. No focal neurologic deficits are noted on exam. Lower extremities: There is no peripheral edema bilaterally, negative Homans sign. No palpable cords. Distal pulses are +2/4 and present in both lower extremities. Psych: Maintains eye contact. Cooperative. - ED course: This patient was seen and evaluated due to complaints of abdominal pain and nausea vomiting. She indicated that the abdominal pain is located upper quadrants is primary in the right upper quadrant. Patient is currently 16 weeks . She had blood work urinalysis and a gallbladder ultrasound performed. Patient's blood work was unremarkable urinalysis without evidence of infection or ultrasound revealed evidence of cholelithiasis with multiple gallstones without evidence of acute cholecystitis. Patient was feeling better and I detailed discussion with the patient about her lab work and ultrasound results and told her that is possible that she had an acute gallbladder attack that caused her symptoms but currently there is no evidence of obstruction or inflammation of her gallbladder and she can go home. She was referred back to her SHAFTING CLEANER and - general surgeon for follow up. This chart was dictated with the use of [employer] software within the framework of the current electronic medical records software. Attempts were made to edit in real time, given time constraints there is the potential for inaccuracies in my dictation. Mauricio Reyes, DO HISTORY OF PRESENTING ILLNESS KEAGAN is a 21 year old Female and was seen by me at 12-Jul-2022 13:33 for a chief complaint of abdominal pain (Patient is 16 week with complaints of abdominal pain with vomiting. Patient denies discharge or bleeding. Patient denies fever or complications. Has had decrease in movement today. FHT 144)(1). Triage Information: Most recent Vital Sign Value Date Temp (F): 97.6 07-12-2022 13:29 Temp (C): 36.4 07-12-2022 13:29 Heart Rate (beats/min): 96 07-12-2022 13:29 Respirations (breaths/min): 16 07-12-2022 13:29 SpO2 (%): 100 07-12-2022 13:29 BP Systolic (mm Hg): 104 07-12-2022 13:29 BP Diastolic (mm Hg): 68 07-12-2022 13:29 PAST MEDICAL HISTORY CURRENT OR FORMER SUBSTANCE USE: Tobacco/Nicotine Use: former smoker Alcohol Use: denies Drug Use: denies,Drug 2 Use: daily (nicotine - vapes daily) ALLERGIES/INTOLERANC ES: No Known Allergies HEALTH HISTORY: No docume (more content not included)... [facility] Risk Screen - Adult Emergenc yon 07-12-2022 Risk Screen - Adult Emergency Preferred Language: Preferred Language: Preferred Language for Discussing Health Care (patient/designee)[facility] Patient Preferred Pharmacy: Patient Preferred Pharmacy Statement: I have reviewed and updated the patient's preferred pharmacy selection for today's visit. Advanced Directives: Advance Directive/DNRno Family Violence Adult: Abuse Screen: Are you or have you been threatened or abused physically, emotionally, or sexually by anyoneno Learning Assessment (Patient): Learning Assessment (Patient): Patient is Able to be Assessed for Learningyes Factors Influencing Readiness to Learnnone Factors that Impact Ability to Learnnone Devices/Methods Used to Communicatenone Learning Preferencesverbal instruction; written material Cultural Considerationsnone Developmental Considerationsnone Holiness Considerationsnone Learning Assessment (Other Learner): Learning Assessment (Other Learner): Other learner availableno Pressure Injury/TB/Substance: Pressure Injury: Do you have a coughno Smoking Statusmoderate user (uses 11-30 cig/day, OR 0.5-1.5 ppd, OR 2-3 cans/pouches loose leaf tobacco per week, OR 0.5-1.5 vape pods per day) Tobacco Cessation Education (provide if tobacco use within the last 12 mos) patient declined Alcohol Usedenies Drug Usedenies Admission Risk Screen: Significant IndicatorsComplete CAGE: CAGE: Is this an injured patient [place] a Tra[place] Center [place]): no Electronic Signatures: Kayla Sullivan (SUPLaura) (Signed 12-Jul-2022 13:37) Authored: Preferred Language, Patient Preferred Pharmacy, Advanced Directives, Family Violence Adult, Learning Assessment (Patient), Learning Assessment (Other Learner), Pressure Injury/TB/Substance, Pressure Injury, CAGE Last Updated: 12-Jul-2022 13:37 by Kayla Sullivan (SUPV) [facility] Triage - EDon 07-12-2022 Triage - ED Quick Triage: Are You yes Have You Given In The Last 6 Weeksno Are You Currently Breastfeedingno Chart Review: ARRIVAL INFORMATION Mode of Arrival: private vehicle CHIEF COMPLAINT KEAGAN ALICIA is a Female patient with a chief complaint of abdominal pain (Patient is 16 week with complaints of abdominal pain with vomiting. Patient denies discharge or bleeding. Patient denies fever or complications. Has had decrease in movement today. FHT 144). Triage Date/Time: 12-Jul-2022 13:29 ALENA: 3 Pain Rating (0-10): 8 = Severe Pain location: abdominal Vital Signs: Temperature: 97.6F ( 36.4C) taken oral Blood Pressure: 104/68 Mean: Heart Rate: 96 Respiratory Rate: 16 Pulse Oximetry: 100% on room air, no respiratory support. Height: 5 feet 3.00 inches. 160.0 CM Weight: 120.1 pounds. Calculated 54.5 kg. 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 Symptoms Are Negative For: anorexia, constipation, diaphoresis, diarrhea, distention, fever, nausea and rectal blood. Risk Screens Suicide Risk Screen In the Past Month: Have you wished you were or wished you could go to sleep and not wake up no In the Past Month: Have you had any actual thoughts of killing yourself no In Your Lifetime: Have you ever done anything, started to do anything, or prepared to do anything to end your life no Flores Fall Scale Screening Has the patient fallen before (or is the patient in the ED as a result of a fall) has not had a fall Does the patient have an impaired gait does not have impaired gait Is the patient cognitively impaired not cognitively impaired Interventions: Flores Fall Interventions: LOW INTERVENTIONS: *patient oriented to surroundings and call system, * patient/family falls education completed and documented, *patients fall status communicated during bedside handoff, *whiteboard updated, *mode of toileting discussed with patient, *bed in low position with brakes locked, *call light in reach, * non-skid footwear TRAVEL HISTORY Travel History Coronavirus Screening: no exposure or symptoms Travel Exposure History: NO travel to International locations in the past 30 days PAIN Pain Scale Used: KARINA Pain Rating (0-10): 8 = Severe Past Medical History: Past Medical History Reviewedyes Electronic Signatures: Kayla Sullivan (SUPV) (Signed 12-Jul-2022 13:35) Entered: Risk Screens, Pain, Travel History, Chart Review, Scores, Past Medical History Authored: Quick Triage, Risk Screens, Pain, Travel History, Chart Review, Scores, Past Medical History Last Updated: 12-Jul-2022 13:35 by Kayla Sullivan (SUPV) Normal [facility] URINALYSIS WITH CULTURE IF I NDICATEDon 07-12-2022 Appearance (U) HAZY Normal CLEAR [facility] Comment on above: Performed By: #### U ARFX #### [place] [address] Bilirubin Ql (U) Negative Normal NEGATIVE [facility] Comment on above: Performed By: #### U ARFX #### [place] [address] Color (U) Yellow Normal STRAW,YELLOW [facility] Comment on above: Performed By: #### U ARFX #### [address] [address] Glucose Ql (U) Negative Normal NEGATIVE [facility] Comment on above: Performed By: #### U ARFX #### [address] [address] Hemoglobin Ql (U) Negative Normal NEGATIVE [facility] Comment on above: Performed By: #### U ARFX #### [address] [address] Ketones Ql (U) Negative Normal NEGATIVE [facility] Comment on above: Performed By: #### U ARFX #### [address] [address] Leukocyte esterase Test strip Ql (U) Negative Normal NEGATIVE [facility] Comment on above: Performed By: #### U ARFX #### [address] [address] Nitrite Ql (U) Negative Normal NEGATIVE [facility] Comment on above: Performed By: #### U ARFX #### [address] [address] pH (U) 8.0 [pH] Normal 5.0 - 8.0 [facility] Comment on above: Performed By: #### U ARFX #### [address] [address] Protein Ql (U) Negative Normal NEGATIVE [facility] Comment on above: Performed By: #### U ARFX #### [address] [address] Specific gravity (U) [Rel density] 1.014 Normal 1.005 - 1.035 [facility] Comment on above: Performed By: #### U ARFX #### [address] [address] Urobilinogen (U) [Mass/Vol] mg/dL Normal 0.0 - 1.9 [facility] Comment on above: Performed By: #### U ARFX #### [address] [address] US GALLBLADDERon 07-12-2022 US GALLBLADDER STUDY: Right Upper Quadrant Ultrasound; Completed Time: 07/12/2022 15:04 INDICATION: Generalized abdominal pain. Nausea/vomiting. 16 weeks . COMPARISON: None available. ACCESSION NUMBER(S): [id number] ORDERING CLINICIAN: MAURICIO REYES DO TECHNIQUE: Ultrasound of the Right Upper Quadrant. Multiple images were obtained. FINDINGS: LIVER: The liver demonstrates normal echogenicity. No hepatic mass is identified. There is no intrahepatic biliary dilatation. GALLBLADDER: The gallbladder contains multiple stones. There is no pericholecystic fluid or wall thickening. Sonographic Maynard's sign is reported to be negative. BILE DUCTS: The common bile duct measures 0.4 cm. PANCREAS: The pancreas demonstrates a normal homogeneous echotexture with the tail not well seen due to overlying bowel gas. . RIGHT KIDNEY: The right kidney measures 10.4 x 3.6 x 5.0 cm. Renal cortical echotexture is normal. There is no hydronephrosis. There are multiple nonshadowing calcifications visualized. There are no discrete stones. There are no cysts. IMPRESSION: Cholelithiasis without evidence for acute cholecystitis. Signed by Verna Burrows DO Electronically signed by: VERNA BURROWS DO [facility] Absolute lymphocyte countOrd ered By: Neleima Dahl on 05-24-2022 Lymphocytes Auto (Unsp spec) [#/Vol] 1.63 10*3/uL 0.83-4.51 [facility] Basophil percentageOrdered B y: Neelima Dahl on 05-24-2022 Basophils/100 WBC (Bld) 0.6 % 0-1 [facility] [facility] E[facility]/100 WBC (Bld) 1.4 % 0-5 [facility] Neutrophils (Bld) [#/Vol] 2.8 10*3/uL 2.0-7.7 [facility] Neutrophils/100 WBC (Bld) 55.5 % 47-70 [facility] WBC (Bld) [#/Vol] 5.0 10*3/uL 4.4-11.0 [facility] Blood erythrocytes count (nu mber/volume)Ordered By: Neelima Dahl on 05-24-2022 RBC (Bld) [#/Vol] 4.08 10*6/uL 4.2-5.4 [facility] Blood hemoglobin measurement (mass/volume)Ordered By: Neelima Dahl on 05-24-2022 Hemoglobin (Bld) [Mass/Vol] 12.2 g/dL 12.0-15.0 [facility] Blood lymphocytes/100 leukoc ytesOrdered By: Neelima Dahl on 05-24-2022 Lymphocytes/100 WBC (Bld) 32.5 % 19-41 [facility] Blood monocytes/100 leukocyt esOrdered By: Neelima Dahl on 05-24-2022 Monocytes/100 WBC (Bld) 9.8 % 0-10 [facility] Blood platelet mean volumeOr dered By: Neelima Dahl on 05-24-2022 Platelet mean volume (Bld) [Entitic vol] 11.4 fL 6.2-12.0 [facility] C. trachomatis+N. gonorrhoea e DNA SHYAM+probe Ql (Unsp spec)on 05-24-2022 C. trachomatis rRNA SHYAM+probe Ql (Unsp spec) Negative Negative for Chlamydia trachomatis by amplificaton [facility] N. gonorrhoeae rRNA SHYAM+probe Ql (Unsp spec) Negative Negative for Neisseria gonorrhoeae by amplification [facility] Culture, urineOrdered By: Pedro Dahl on 05-24-2022 Bacteria identified Cx Nom (U) Culture exhibits no growth. [facility] Determination of erythrocyte mean corpuscular volume (MCV)Ordered By: Neelima Dalh on 05-24-2022 MCV (RBC) [Entitic vol] 91.2 fL 81-99 [facility] HEP B SURF AG SCRNon 023 HBV surface Ag Ql (S) Non-Reactive [facility] HEPATITIS C ANTIBODY IA WITH CONFIRMATIONon 05-24-2022 HCV Ab Ql (S) Negative Negative [facility] HIV 1 and HIV-2 antibody ass ay with HIV-1 p24 antigen detectionOrdered By: Neelima Dahl on 05-24-2022 HIV 1+2 Ab+HIV1 p24 Ag IA Ql Non-Reactive [facility] HIV COMBO (AC)on 05-24-2022 HIV Combo Non-Reactive [facility] Hematocrit Auto (Bld) [Volum e fraction]Ordered By: Neelima Dahl on 05-24-2022 Hematocrit (Bld) [Volume fraction] 37.2 % 37-47 [facility] Laboratory - Hematology and Cell countsOrdered By: Neelima Dahl on 05-24-2022 Erythrocyte distribution width (RBC) [Entitic vol] 46.2 fL 35.1-43.9 [facility] Erythrocyte distribution width (RBC) [Ratio] 13.8 % 11.6-14.6 [facility] Immature granulocytes/100 WBC (Bld) 0.200 % 0.0-0.9 [facility] Comment on above: IG% - Immature Granu locytes (promyelocytes, myelocytes and metamyelocytes) > 1% indicates that a LEFT SHIFT is Present. MCH (RBC) [Entitic mass] 29.9 pg 27.0-32.0 [facility] Nucleated RBC/100 WBC (Bld) [Ratio] 0 % 0-5 [facility] MCHC Auto (RBC) [Mass/Vol]Or dered By: Neelima Dahl on 05-24-2022 MCHC (RBC) [Mass/Vol] 32.8 g/dL 32-36 [facility] No Panel InformationOrdered By: Neelima Dahl on 05-24-2022 Hepatitis B Surface Antigen Non-Reactive Nonreactive [facility] Hepatitis C Antibody Non-Reactive Nonreactive [facility] [place] Comment on above: Non Reactive: < 0.8 Equivocal: >/= 0.8 to < 1.0 Reactive: >/= 1.0The [facility] recommends that a reactive/equivocal HCV antibody result be followed up by the HCV Nucleic Acid Amplificationtest (507434) Rubella IgG Antibody Reactive Nonreactive [facility] Comment on above: Antibody Results Int erpretation of Immune Status Non Reactive Presumed Non-Immune Equivocal Equivocal Reactive Presumed Immune Platelets bldOrdered By: Curtis Dahl on 05-24-2022 Platelets (Bld) [#/Vol] 249 10*3/uL 150-450 [facility] RUBELLA IGG ABon 05-24-2022 Rubella IgG, Qual Positive Positive [facility] Reagin and Treponema pallidu m IgG and IgM [Interp]on 05-24-2022 Syphilis Screen Result Non-Reactive [facility] Serum Treponema species anti body detectionOrdered By: Neelima Dahl on 05-24-2022 Treponema sp Ab Ql (S) Non-Reactive [facility] Serum Varicella zoster virus IgG antibody assay by immunoassay (units/volume)Ordered By: Neelima Dahl on 05-24-2022 VZV IgG IA Qn (S) 404 index Immune >165 [facility] Comment on above: Negative <135 Equivo hoda 135 - 165 Positive >165A positive result generally indicates exposure to thepathogen or administration of specific immunoglobulins,but it is not indication of active infection or stageof disease.Performed at: [facility] [id number] Director: Rakan Gomez PhD, Phone: [phone] Serum or plasma choriogonado tropin detectionOrdered By: Dr. Dahl on 04-19-2022 HCG ( test) Ql 1067 mIU/mL <4 [facility] Comment on above: hCG levels with Gest ational AgeGestational Age hCG mIU/mL (IU/L)0.2 - 1 week 5 - 501-2 weeks 50 - 5002-3 weeks 100 - 21516-5 weeks 500 - 827930-9 weeks 1000 - 639398-1 weeks 42061 - 100,0006-8 weeks 64237 - 200,0002-3 months 87015 - 100,000 HIV 1 and HIV-2 antibody ass ay with HIV-1 p24 antigen detectionOrdered By: Dr. Dahl on 02-07-2022 HIV 1+2 Ab+HIV1 p24 Ag IA Ql Non-Reactive Nonreactive [facility] Laboratory - Chemistry and C hemistry - challengeOrdered By: Dr. Dahl on 02-07-2022 Free T4 [Mass/Vol] 0.91 ng/dL 0.76-1.46 [facility] No Panel InformationOrdered By: Dr. Dahl on 02-07-2022 Hepatitis A Antibody Total Positive Negative [facility] Comment on above: Performed at: [place] [id number] Director: Rakan Gomez PhD, Phone: [phone] Hepatitis A IgM Antibody Negative Negative [facility] Hepatitis B Core IgM Antibody Negative Negative [facility] Hepatitis C Antibody (EIA) <0.1 s/co ratio 0.0-0.9 [facility] Hepatitis C Antibody Comment Comment . [facility] Comment on above: NegativeNot infected with HCV, unless recent infection issuspected or other evidence exists to indicate HCVinfection. Thyroid Stimulating Hormone (TSH) 1.76 uIU/mL 0.358-3.74 [facility] Serum Treponema species anti body detectionOrdered By: Dr. Dahl on 02-07-2022 Treponema sp Ab Ql (S) Non-Reactive [facility] Serum hepatitis B virus surf sarita antibody IgG detectionOrdered By: Dr. Dahl on 02-07-2022 HBV surface IgG Ql (S) Non-Reactive [facility] Comment on above: Non Reactive: Incons istent with immunity less than <10 mIU/mL Reactive: Consistent with immunity greater than or equal to 10 mIU/mL Serum or plasma hepatitis B virus surface antigen detection by immunoassayOrdered By: Dr. Dahl on 02-07-2022 HBV surface Ag IA Ql Negative Negative [facility] Serum or plasma prolactin me asurement (mass/volume)Ordered By: Dr. Dhal on 02-07-2022 Prolactin [Mass/Vol] 27.2 ng/mL [facility] Comment on above: NORMAL REFERENCE RAN GES FEMALE NON- 2.2 - 30.3 ng/mL 8.1 - 347.6 ng/mL POST-MENOPAUSAL 0.7 - 31.5 ng/mL MALE 2.5 - 17.4 ng/mL HIV 1 and HIV-2 antibody ass ay with HIV-1 p24 antigen detectionon 12-12-2021 HIV 1+2 Ab+HIV1 p24 Ag IA Ql Non-Reactive Nonreactive [facility] Work Phone: Basophil percentageon 2021 Bilirubin [Mass/Vol] 0.40 mg/dL 0.20-1.00 [facility] Work Phone: [phone] Comment on above: For patients on eltr ombopag therapy, use of Dimension [place] TBIL is not recommended. Chloride [Moles/Vol] 108 mmol/L 98-107 [facility] Work Phone: [phone] Glucose [Mass/Vol] 65 mg/dL 74-106 [facility] Work Phone: [phone] Potassium [Moles/Vol] 4.1 mmol/L 3.5-5.1 [facility] Work Phone: [phone] Protein [Mass/Vol] 6.7 g/dL 6.4-8.2 [facility] Work Phone: [phone] Sodium [Moles/Vol] 141 mmol/L 136-145 [facility] Work Phone: [phone] WBC (Bld) [#/Vol] 6.5 10*3/uL 4.4-11.0 [facility] Work Phone: [phone] Blood erythrocytes count (nu mber/volume)on 12-01-2021 RBC (Bld) [#/Vol] 4.09 10*6/uL 4.2-5.4 [facility] Work Phone: [phone] Blood hemoglobin measurement (mass/volume)on 12-01-2021 Hemoglobin (Bld) [Mass/Vol] 13.0 g/dL 12.0-15.0 [facility] Work Phone: [phone] Blood platelet mean volumeon 12-01-2021 Platelet mean volume (Bld) [Entitic vol] 12.0 fL 6.2-12.0 [facility] Work Phone: [phone] Determination of erythrocyte mean corpuscular volume (MCV)on 12-01-2021 MCV (RBC) [Entitic vol] 94.1 fL 81-99 [facility] Work Phone: [phone] Hematocrit Auto (Bld) [Volum e fraction]on 12-01-2021 Hematocrit (Bld) [Volume fraction] 38.5 % 37-47 [facility] Work Phone: [phone] Iron measurement (mass/mass) on 12-01-2021 Iron (Unsp spec) [Mass/Mass] 28 ug/dL 50-170 [facility] Work Phone: [phone] Laboratory - Chemistry and C hemistry - challengeon 12-01-2021 ALP [Catalytic activity/Vol] 51 U/L 45-117 [facility] Work Phone: ALT [Catalytic activity/Vol] 21 U/L 13-56 [facility] Work Phone: [phone] CO2 [Moles/Vol] 28.0 mmol/L 21.0-32.0 [facility] Work Phone: [phone] Globulin (S) [Mass/Vol] 3.2 g/dL 2.2-4.2 [facility] Work Phone: [phone] Urea nitrogen/Creatinine [Mass ratio] 10.5 mg/mg 10-20 [facility] Work Phone: [phone] Laboratory - Hematology and Cell countson 12-01-2021 Erythrocyte distribution width (RBC) [Entitic vol] 45.0 fL 35.1-43.9 [facility] Work Phone: [phone] Erythrocyte distribution width (RBC) [Ratio] 13.1 % 11.6-14.6 [facility] Work Phone: [phone] MCH (RBC) [Entitic mass] 31.8 pg 27.0-32.0 [facility] Work Phone: MCHC Auto (RBC) [Mass/Vol]on 12-01-2021 MCHC (RBC) [Mass/Vol] 33.8 g/dL 32-36 [facility] Work Phone: No Panel Informationon 12-01 Estimated GFR (MDRD) Amer 147 mL/min >60 [facility] Work Phone: [phone] Comment on above: GFR Calc Estimated GFR (MDRD) Non-Af Amer 121 mL/min >60 [facility] Work Phone: [phone] Comment on above: Non- GFR Calc Thyroid Stimulating Hormone (TSH) 0.83 uIU/mL 0.358-3.74 [facility] Work Phone: Total Iron Binding Capacity 339 ug/dL 250-450 [facility] Work Phone: [phone] Vitamin D 25-Hydroxy 30.6 ng/mL [facility] Work Phone: Comment on above: Vitamin D 25(OH) Sta tus Range Deficiency <20 ng/mL (50nmol/L) Insufficiency 20 - 30 ng/mL (50 - 75 nmol/L) Sufficiency 30 - 100 ng/mL (75 - 250 nmol/L) Toxicity >100 ng/mL (>250 nmol/L) Platelets bldon 12-01-2021 Platelets (Bld) [#/Vol] 213 10*3/uL 150-450 [facility] Work Phone: [phone] Serum or plasma albumin reynaldo urement (mass/volume)on 12-01-2021 Albumin [Mass/Vol] 3.5 g/dL 3.2-5.0 [facility] Work Phone: [phone] Serum or plasma albumin/glob ulin mass ratioon 12-01-2021 Albumin/Globulin [Mass ratio] 1.1 {ratio} 0.9-2.4 [facility] Work Phone: [phone] Serum or plasma calcium reynaldo urement (mass/volume)on 12-01-2021 Calcium [Mass/Vol] 8.8 mg/dL 8.5-10.1 [facility] Work Phone: Serum or plasma creatinine m easurement (mass/volume)on 12-01-2021 Creatinine [Mass/Vol] 0.67 mg/dL 0.55-1.02 [facility] Work Phone: Comment on above: The validity of the calculated GFR & GFRAA in patients over 70 years has not been determined. Clinical correlation is essential. Serum or plasma ferritin jose raul surement (mass/volume)on 12-01-2021 Ferritin [Mass/Vol] 34 ng/mL 8-252 [facility] Work Phone: Serum or plasma urea nitroge n measurement (mass/volume)on 12-01-2021 Urea nitrogen [Mass/Vol] 7 mg/dL 7-18 [facility] Work Phone: Thin prep Papanicolaou smear with manual screeningon 12-01-2021 Thin prep Papanicolaou smear with manual screening 11 U/L 15-37 [facility] Work Phone: Thin prep Papanicolaou smear with manual screening 5 5-15 [facility] Work Phone: Whole blood hemoglobin A1c/t otal hemoglobin ratio (mass fraction)on 12-01-2021 HbA1c (Bld) [Mass fraction] 5.1 % 3.8-5.6 [facility] Work Phone: Comment on above: Normal < 5.7 % Predi abetic 5.7 - 6.4 % Diabetic >or= 6.5 % Please note range changes. UA DIP, URINE (POC)on 2021 BILIRUBIN UA (POCT) Negative Negative [facility] CLARITY UA (POCT) Clear [facility] COLOR UA (POCT) Yellow [facility] GLUCOSE UA (POCT) Negative Negative mg/dL [facility] HEMOGLOBIN/BLOOD UA (POCT) Negative Negative [facility] KETONE UA (POCT) Negative Negative mg/dL [facility] LEUKOCYTES UA (POCT) Negative Negative [facility] NITRITE UA (POCT) Negative Negative [facility] PH UA (POCT) 6.5 4.5 - 8.0 [facility] Protein Ql (U) 30 mg/dL Abnormal Negative mg/dL [facility] SPECIFIC GRAVITY UA (POCT) 1.020 1.005 - 1.030 [facility] UROBILINOGEN UA (POCT) 0.2 E.U./dL Normal E.U./ dL [facility] Absolute lymphocyte counton 10-31-2021 Lymphocytes Auto (Unsp spec) [#/Vol] 2.34 10*3/uL 0.83-4.51 [facility] Work Phone: Basophil percentageon 2021 Basophils/100 WBC (Bld) 0.3 % 0-1 [facility] Work Phone: Bilirubin [Mass/Vol] 0.50 mg/dL 0.20-1.00 [facility] Work Phone: Comment on above: For patients on eltr ombopag therapy, use of Dimension [place] TBIL is not recommended. Chloride [Moles/Vol] 105 mmol/L 98-107 [facility] Work Phone: Eosinophils/100 WBC (Bld) 1.0 % 0-5 [facility] Work Phone: Glucose [Mass/Vol] 66 mg/dL 74-106 [facility] Work Phone: Neutrophils (Bld) [#/Vol] 3.7 10*3/uL 2.0-7.7 [facility] Work Phone: Neutrophils/100 WBC (Bld) 56.1 % 47-70 [facility] Work Phone: Potassium [Moles/Vol] 3.4 mmol/L 3.5-5.1 [facility] Work Phone: Protein [Mass/Vol] 7.2 g/dL 6.4-8.2 [facility] Work Phone: Sodium [Moles/Vol] 139 mmol/L 136-145 [facility] Work Phone: WBC (Bld) [#/Vol] 6.7 10*3/uL 4.4-11.0 [facility] Work Phone: Blood erythrocytes count (nu mber/volume)on 10-31-2021 RBC (Bld) [#/Vol] 4.48 10*6/uL 4.2-5.4 [facility]: Blood hemoglobin measurement (mass/volume)on 10-31-2021 Hemoglobin (Bld) [Mass/Vol] 14.0 g/dL 12.0-15.0 [facility] Work Phone: Blood lymphocytes/100 leukoc yteson 10-31-2021 Lymphocytes/100 WBC (Bld) 35.1 % 19-41 [facility] Work Phone: Blood monocytes/100 leukocyt eson 10-31-2021 Monocytes/100 WBC (Bld) 7.2 % 0-10 [facility] Work Phone: Blood platelet mean volumeon 10-31-2021 Platelet mean volume (Bld) [Entitic vol] 12.4 fL 6.2-12.0 [facility] Work Phone: Chlamydia trachomatis rRNA d etection by probe and target amplification methodon 10-31-2021 C. trachomatis rRNA SHYAM+probe Ql (Unsp spec) Negative Negative [facility] Work Phone: Determination of erythrocyte mean corpuscular volume (MCV)on 10-31-2021 MCV (RBC) [Entitic vol] 94.9 fL 81-99 [facility] Work Phone: [phone] Hematocrit Auto (Bld) [Volum e fraction]on 10-31-2021 Hematocrit (Bld) [Volume fraction] 42.5 % 37-47 [facility] Work Phone: Laboratory - Chemistry and C hemistry - challengeon 10-31-2021 ALP [Catalytic activity/Vol] 47 U/L 45-117 [facility] Work Phone: ALT [Catalytic activity/Vol] 22 U/L 13-56 [facility] Work Phone: [phone] CO2 [Moles/Vol] 27.0 mmol/L 21.0-32.0 [facility] Work Phone: Free T4 [Mass/Vol] 0.92 ng/dL 0.76-1.46 [facility] Work Phone: [phone] Globulin (S) [Mass/Vol] 3.3 g/dL 2.2-4.2 [facility] Work Phone: [phone] Urea nitrogen/Creatinine [Mass ratio] 10.3 mg/mg 10-20 [facility] Work Phone: [phone] Laboratory - Hematology and Cell countson 10-31-2021 Erythrocyte distribution width (RBC) [Entitic vol] 44.2 fL 35.1-43.9 [facility] Work Phone: [phone] Erythrocyte distribution width (RBC) [Ratio] 12.6 % 11.6-14.6 [facility] Work Phone: [phone] Immature granulocytes/100 WBC (Bld) 0.300 % 0.0-0.9 [facility] Work Phone: [phone] Comment on above: IG% - Immature Granu locytes (promyelocytes, myelocytes and metamyelocytes) > 1% indicates that a LEFT SHIFT is Present. MCH (RBC) [Entitic mass] 31.3 pg 27.0-32.0 [facility] Work Phone: [phone] Nucleated RBC/100 WBC (Bld) [Ratio] 0 % 0-5 [facility] Work Phone: [phone] Laboratory - Microbiology an d Antimicrobial susceptibilityon 10-31-2021 N. gonorrhoeae DNA SHYAM+probe Ql (Unsp spec) Negative Negative [facility] Work Phone: [phone] Comment on above: Performed at: =G - [address] [place] [id number] Director: Romy Mcarthur MD, Phone: [phone] MCHC Auto (RBC) [Mass/Vol]on 10-31-2021 MCHC (RBC) [Mass/Vol] 32.9 g/dL 32-36 [facility] Work Phone: [phone] No Panel Informationon 10-31 Estimated GFR (MDRD) Amer 143 mL/min >60 [facility] Work Phone: Comment on above: GFR Calc Estimated GFR (MDRD) Non-Af Amer 118 mL/min >60 [facility] Work Phone: Comment on above: Non- GFR Calc Follicle Stimulating Hormone 3.2 mIU/mL [facility] Work Phone: Comment on above: NORMAL REFERENCE RAN GES FEMALE FOLLICULAR 2.3 - 12.6 mIU/mL MID-CYCLE PEAK 5.2 - 17.5 mIU/mL LUTEAL 1.7 - 12.9 mIU/mL POST-MENOPAUSAL ON MHT 5.9 - 72.8 mIU/mL NOT ON MHT 12.7 - 132.2 mlU/mL MALE 0.7 - 10.8 mIU/mL Luteinizing Hormone 2.2 mIU/mL [facility] Work Phone: Comment on above: NORMAL REFERENCE RAN GES FEMALE FOLLICULAR 1.9 - 26.2 mIU/mL MID-CYCLE PEAK 22.8 - 76.1 mIU/mL LUTEAL 0.6 - 16.6 mIU/mL POST-MENOPAUSAL ON MHT 1.1 - 52.4 mIU/mL NOT ON MHT 8.6 - 61.8 mIU/mL MALE 1.2 - 10.6 mIU/mL Thyroid Stimulating Hormone (TSH) 0.94 uIU/mL 0.358-3.74 [facility] Work Phone: Platelets bldon 10-31-2021 Platelets (Bld) [#/Vol] 206 10*3/uL 150-450 [facility] Work Phone: Serum or plasma albumin reynaldo urement (mass/volume)on 10-31-2021 Albumin [Mass/Vol] 3.9 g/dL 3.2-5.0 [facility] Work Phone: Serum or plasma albumin/glob ulin mass ratioon 10-31-2021 Albumin/Globulin [Mass ratio] 1.2 {ratio} 0.9-2.4 [facility] Work Phone: Serum or plasma calcium reynaldo urement (mass/volume)on 10-31-2021 Calcium [Mass/Vol] 8.4 mg/dL 8.5-10.1 [facility] Work Phone: Serum or plasma choriogonado tropin detectionon 10-31-2021 HCG ( test) Ql < 1 mIU/mL <4 [facility] Work Phone: Comment on above: hCG levels with Gest ational AgeGestational Age hCG mIU/mL (IU/L)0.2 - 1 week 5 - 501-2 weeks 50 - 5002-3 weeks 100 - 04542-8 weeks 500 - 582270-6 weeks 1000 - 259274-7 weeks 31253 - 100,0006-8 weeks 92735 - 200,0002-3 months 28055 - 100,000 Serum or plasma creatinine m easurement (mass/volume)on 10-31-2021 Creatinine [Mass/Vol] 0.68 mg/dL 0.55-1.02 [facility] Work Phone: Comment on above: The validity of the calculated GFR & GFRAA in patients over 70 years has not been determined. Clinical correlation is essential. Serum or plasma prolactin me asurement (mass/volume)on 10-31-2021 Prolactin [Mass/Vol] 16.7 ng/mL [facility] Work Phone: Comment on above: NORMAL REFERENCE RAN GES FEMALE NON- 2.2 - 30.3 ng/mL 8.1 - 347.6 ng/mL POST-MENOPAUSAL 0.7 - 31.5 ng/mL MALE 2.5 - 17.4 ng/mL Serum or plasma urea nitroge n measurement (mass/volume)on 10-31-2021 Urea nitrogen [Mass/Vol] 7 mg/dL 7-18 [facility] Work Phone: Thin prep Papanicolaou smear with manual screeningon 10-31-2021 Thin prep Papanicolaou smear with manual screening 13 U/L 15-37 [facility] Work Phone: Thin prep Papanicolaou smear with manual screening 7 5-15 [facility] Work Phone: HCG QUAL UR B/Oon 08-14-2021 status Negative neg - pos [facility] Quality Check Yes [facility] UA DIP, URINE (POC)on 2021 BILIRUBIN UA (POCT) Negative Negative [facility] CLARITY UA (POCT) Cloudy [facility] COLOR UA (POCT) Yellow [facility] GLUCOSE UA (POCT) Negative Negative mg/dL [facility] HEMOGLOBIN/BLOOD UA (POCT) Negative Negative [facility] KETONE UA (POCT) Trace Negative mg/dL [facility] LEUKOCYTES UA (POCT) Negative Negative [facility] NITRITE UA (POCT) Negative Negative [facility] PH UA (POCT) 7.0 4.5 - 8.0 [facility] Protein Ql (U) Negative Negative mg/dL [facility] SPECIFIC GRAVITY UA (POCT) 1.020 1.005 - 1.030 [facility] UROBILINOGEN UA (POCT) 1.0 E.U./dL Normal E.U./ dL [facility] Serum or plasma choriogonado tropin detectionon 05-17-2021 HCG ( test) Ql 4 mIU/mL <4 [facility] Work Phone: Comment on above: hCG levels with Gest ational AgeGestational Age hCG mIU/mL (IU/L)0.2 - 1 week 5 - 501-2 weeks 50 - 5002-3 weeks 100 - 28505-6 weeks 500 - 744485-4 weeks 1000 - 311273-9 weeks 34372 - 100,0006-8 weeks 65307 - 200,0002-3 months 67253 - 100,000 Basic Panelon 07-19-2019 Anion gap [Moles/Vol] 11 mmol/L Normal 9-18 [facility] Comment on above: Performed By: #### L LP8 #### [facility] [address] [place], [place] [address] Calcium [Mass/Vol] 9.2 mg/dL Normal 8.4-10.2 [facility] Comment on above: Performed By: #### L LP8 #### [facility] [address] [place], [place] [address] Chloride [Moles/Vol] 98 mmol/L Normal 97-105 [facility] Comment on above: Result Comment: Refe rence ranges for this patient`s age group have not been established. These reference ranges reflect verified or established ranges for the adult population. Interpret ranges with caution using the clinical context and additional reference resources. Performed By: #### L LP8 #### [facility] [address] [place], [place] [address] CO2 Blood 25 mmol/L Normal 22-30 [facility] Comment on above: Result Comment: Refe rence ranges for this patient`s age group have not been established. These reference ranges reflect verified or established ranges for the adult population. Interpret ranges with caution using the clinical context and additional reference resources. Performed By: #### L LP8 #### [facility] [address] [place], [place] [address] Creatinine [Mass/Vol] 0.81 mg/dL Normal 0.58-0.96 [facility] Comment on above: Result Comment: Refe rence ranges for this patient`s age group have not been established. These reference ranges reflect verified or established ranges for the adult population. Interpret ranges with caution using the clinical context and additional reference resources. Performed By: #### L LP8 #### [facility] [address] [place], [place] [address] Glucose [Mass/Vol] 120 mg/dL High 74-99 [facility] Comment on above: Result Comment: Refe rence ranges for this patient`s age group have not been established. These reference ranges reflect verified or established ranges for the adult population. Interpret ranges with caution using the clinical context and additional reference resources. The [place] [employer] (ADA) provides guidance for cutoff values for fasting glucose and random glucose. The ADA defines fasting as no caloric intake for at least 8 hours.Fasting plasma glucose results between 100 to 125 mg/dL indicate increased risk for diabetes (prediabetes). Fasting plasma glucose results greater than or equal to 126 mg/dL meet the criteria for diagnosis of diabetes. In the absence of unequivocal hyperglycemia, results should be confirmed by repeat testing. In a patient with classic symptoms of hyperglycemia or hyperglycemic crisis, random plasma glucose results greater than or equal to 200 mg/dL meet the criteria for diagnosis of diabetes. Reference: Standards of Medical Care in Diabetes 2016; [place] [employer]. Diabetes Care. 2016;39(Suppl 1). Performed By: #### L LP8 #### [facility] [address] [place], [place] [address] Potassium [Moles/Vol] 3.7 mmol/L Normal 3.7-5.1 [facility] Comment on above: Result Comment: Refe rence ranges for this patient`s age group have not been established. These reference ranges reflect verified or established ranges for the adult population. Interpret ranges with caution using the clinical context and additional reference resources. Performed By: #### L LP8 #### [facility] [address] [place], [place] [address] Sodium [Moles/Vol] 134 mmol/L Low 136-144 [facility] Comment on above: Result Comment: Refe rence ranges for this patient`s age group have not been established. These reference ranges reflect verified or established ranges for the adult population. Interpret ranges with caution using the clinical context and additional reference resources. Performed By: #### L LP8 #### [facility] [address] [place], [place] [address] Urea nitrogen [Mass/Vol] 11 mg/dL Normal 5-18 [facility] Comment on above: Performed By: #### L LP8 #### [facility] [address] [place], [place] [address] Cult Urineon 07-19-2019 Cult Urine Test performed at [facility] ORGANISM: *Escherichia coli (ID: 1) >100,000 CFU/ml CLSI breakpoints for therapy of uncomplicated UTI due to E. coli, K. pneumoniae or P. mirabilis were applied and may be used to predict the activity of oral agents (cefdinir, cefpodoxime, cefuroxime, and cephalexin). Normal [facility] Comment on above: Performed By: #### C _URI #### [facility] [address] [place], [place] [address] HCG, Total for ED Useon 0 HCG Qn m[IU]/mL Normal < 5.0 [facility] Comment on above: Result Comment: Gema ents taking a biotin dose of up to 5 mg/day should refrain from taking biotin for 4 hours prior to sample collection. Patients taking a biotin dose of 5 to 10 mg/day should refrain from taking biotin for 8 hours prior to sample collection. Patients taking a biotin dose > 10 mg/day should consult with their physician or the laboratory prior to having a sample taken. Clinicians should consider biotin interference as a source of error, when clinically suspicious of the laboratory result. Performed By: #### L EHCG #### [place] [address] Hemogramon 07-19-2019 Erythrocyte distribution width (RBC) [Ratio] 14.2 % Normal 11.5-15.0 [facility] Comment on above: Performed By: #### L CBC #### [place] [address] Hematocrit (Bld) [Volume fraction] 44.1 % Normal 36.0-46.0 [facility] Comment on above: Performed By: #### L CBC #### [place] [address] Hemoglobin (Bld) [Mass/Vol] 14.4 g/dL Normal 11.5-15.5 [facility] Comment on above: Performed By: #### L CBC #### [place] [address] MCH (RBC) [Entitic mass] 29.6 pg Normal 26.0-34.0 [facility] Comment on above: Performed By: #### L CBC #### [place] [address] MCHC (RBC) [Mass/Vol] 32.7 % Normal 30.5-36.0 [facility] Comment on above: Performed By: #### L CBC #### [place] [address] MCV (RBC) [Entitic vol] 90.7 fL Normal 80.0-100.0 [facility] Comment on above: Performed By: #### L CBC #### [place] [address] Platelet mean volume (Bld) [Entitic vol] 12.5 fL Normal 9.0-12.7 [facility] Comment on above: Performed By: #### L CBC #### [facility] [address] [place] [address] Platelets (Bld) [#/Vol] 129 thou/cmm Low 150-400 [facility] Comment on above: Performed By: #### L CBC #### [facility] [address] [place] [address] RBC (Bld) [#/Vol] 4.86 mil/cmm Normal 3.90-5.20 [facility] Comment on above: Performed By: #### L CBC #### [place] [address] WBC (Bld) [#/Vol] 10.8 thou/cmm Normal 3.7-11.0 [facility] Comment on above: Performed By: #### L CBC #### [place] [address] Urinalysis Routineon 020 Appearance (U) 3+ (CLOUDY) Normal [facility] Comment on above: Performed By: #### L URIN #### [place] [address] Bacteria LM.HPF (Urine sed) [#/Area] MODERATE Abnormal None [facility] Comment on above: Performed By: #### L URIN #### [place] [address] Bilirubin Urine see below Normal Negative [facility] Comment on above: Result Comment: Dete cted (Unable to confirm). Performed By: #### L URIN #### [facility] [address] [place] [address] Color (U) YELLOW Normal [facility] Comment on above: Performed By: #### L URIN #### [place] [address] Ep Cells Urine 2-5 Normal 0-5 [facility] Comment on above: Performed By: #### L URIN #### [place] [address] Glucose Ql (U) Negative Normal Negative [facility] Comment on above: Performed By: #### L URIN #### [facility] [address] [place] [address] Hemoglobin,Urine 2+ Abnormal Negative [facility] Comment on above: Performed By: #### L URIN #### [facility] [address] [place] [address] Ketone Urine 3+ Abnormal Negative [facility] Comment on above: Performed By: #### L URIN #### [facility] [address] [place] [address] Leukocytes Esterase 1+ Abnormal Negative [facility] Comment on above: Performed By: #### L URIN #### [place] [address] Mucus Threads FEW Normal None [facility] Comment on above: Performed By: #### L URIN #### [place] [address] Nitrites Urine Positive Abnormal Negative [facility] Comment on above: Performed By: #### L URIN #### [place] [address] pH (U) 6.0 [pH] Normal 5.0-8.0 [facility] Comment on above: Performed By: #### L URIN #### [place] [address] Protein (U) [Mass/Vol] 3+ Abnormal Negative [facility] Comment on above: Performed By: #### L URIN #### [place] [address] RBC LM.HPF (Urine sed) [#/Area] 7-12 Abnormal 0-3 [facility] Comment on above: Performed By: #### L URIN #### [place] [address] Specific [place], Ur 1.020 Normal 1.005-1.030 [facility] Comment on above: Performed By: #### L URIN #### [place] [address] Urobilinogen,Ur 2.0 EU/dL High 0.2-1.0 [facility] Comment on above: Performed By: #### L URIN #### [facility] [address] [place], [place] [address] WBC LM.HPF (Urine sed) [#/Area] 21-35 Abnormal 0-5 [facility] Comment on above: Performed By: #### L URIN #### [facility] [address] [place] [address] PROGRESSon 08-07-2017 [facility] NOTES Normal [facility] CHLAM/GC AMPLIFon 07-31-2017 CHLAMYDIA NUC. AMP Negative Normal Negative [facility] GONOCOCCUS NUC. AMP Negative Normal Negative [facility] Comment on above: Result Comment: PERF ORMED AT [facility] PROGRESSon 07-30-2017 [facility] NOTES Normal [facility] PROGRESSon 07-29-2017 [facility] NOTES Normal [facility] TRICH VAG BY NAAon 8 TRICH VAG BY SHYAM Negative Normal Negative [facility] Comment on above: Result Comment: PERF ORMED AT [facility] Addendumon 07-24-2017 [facility] HIM CAC NOTES Normal [facility] FIBRONECTINon 07-25-19 18 FIBRONECTIN Negative Normal NEGATIVE [facility] Comment on above: Result Comment: NO F ETAL FIBRONECTIN DETECTED.Testing performed at [place] [address] Performed By: #### F FN ####[place] [address] PROGRESSon 07-24-2017 [facility] NOTES Normal [facility] STREP SCREEN GRP Bon 018 STREP SCREEN GRP B SPECIMEN DESCRIPTION VAGINAL SPECIMEN * Result Note: REC * CULTURE NO GROUP B BETA STREP ISOLATED * Result Note: Testing performed at [place] [address] * REPORT STATUS 07/26/2017 * Result Note: FINAL * Normal [facility] Comment on above: Performed By: #### O BSC ####[place] [address] CBCon 07-11-2017 Basophils/100 WBC Auto (Bld) 0 % Normal 0.0-2.0 [facility] Comment on above: Performed By: #### A CBC ####[place] [address] DTYPE AUTO DIFF RESULTS VERIFIED BY SCAN [facility] Comment on above: Performed By: #### A CBC ####[place] [address] Eosinophils/100 leukocytes 1 % Normal 0.0-11.0 [facility] Comment on above: Performed By: #### A CBC ####[place] [address] Erythrocyte morphology 1+ Normal [facility] Comment on above: Result Comment: POLY CHROMIA1+ANISOCYTE Performed By: #### A CBC ####[place] [address] Lymphocytes/100 leukocytes 18 % Low 20.0-55.0 [facility] Comment on above: Performed By: #### A CBC ####[place] [address] Monocytes/100 leukocytes 10 % Normal 0.0-10.0 [facility] Comment on above: Performed By: #### A CBC ####[place] [address] Neutrophils/100 leukocytes 71 % Normal 37.0-75.0 [facility] Comment on above: Performed By: #### A CBC ####[place] [address] PLATELET COMMENT GIANT PLTS Normal [facility] Comment on above: Result Comment: ADEQ UATETesting performed at [place] [address] Performed By: #### A CBC ####[place] [address] WBC MORPHOLOGY <10% BANDS PRESENT Normal [facility] Comment on above: Performed By: #### A CBC ####[place] [address] Erythrocyte distribution width Auto Ratio (RBC) 14.6 % High 11.5-14.5 [facility] Comment on above: Performed By: #### A CBC ####[place] [address] Erythrocytes (RBC) 3.72 /cmm Low 4.0-5.4 [facility] Comment on above: Performed By: #### A CBC ####[place] [address] Hematocrit (HCT) 33.8 % Low 36.0-48.0 [facility] Comment on above: Performed By: #### A CBC ####[place] [address] Hemoglobin mass conc (Bld) 11.5 g/dL Low 12.0-16.0 [facility] Comment on above: Performed By: #### A CBC ####[place] [address] MCH 30.9 pg Normal 26.0-35.0 [facility] Comment on above: Performed By: #### A CBC ####[place] [address] MCHC mass conc (RBC) 34.0 g/dL Normal 27.0-37.0 [facility] Comment on above: Performed By: #### A CBC ####[place] [address] MCV 91.0 fL Normal 80.0-100.0 [facility] Comment on above: Performed By: #### A CBC ####[place] [address] Platelet mean volume (PMV) 10.2 fL Normal 7.4-11.0 [facility] Comment on above: Result Comment: Test ing performed at [place] [address] Performed By: #### A CBC ####[place] [address] Platelets 141 /cmm Normal 130.0-400.0 [facility] Comment on above: Performed By: #### A CBC ####[place] [address] WBC (Leukocytes) 7.8 /cmm Normal 3.6-13.0 [facility] Comment on above: Performed By: #### A CBC ####[place] [address] PROGRESSon 07-10-2017 [facility] NOTES Normal [facility] BMP FASTINGon 07-01-2017 Anion gap 11 mmol/L Normal 8-16 [facility] Comment on above: Performed By: #### A CBC, BMPF, MG ####[place] [address] BUN (urea nitrogen) 6 mg/dL Low 7-20 [facility] Comment on above: Performed By: #### A CBC, BMPF, MG ####[place] [address] Calcium 8.5 mg/dL Low 9.2-10.7 [facility] Comment on above: Performed By: #### A CBC, BMPF, MG ####[place] [address] Chloride 103 mmol/L Normal 98-107 [facility] Comment on above: Performed By: #### A CBC, BMPF, MG ####[place] [address] CO2 24 mmol/L Normal 22-30 [facility] Comment on above: Performed By: #### A CBC, BMPF, MG ####[place] [address] Creatinine 0.4 mg/dL Low 0.6-1.2 [facility] Comment on above: Performed By: #### A CBC, BMPF, MG ####[place] [address] eGFR (non-black) Unable to calculate GFR due to inappropriate age/gender/creatinin e value. Normal [facility] Comment on above: Result Comment: Test ing performed at [place] [address] Performed By: #### A CBC, BMPF, MG ####[place] [address] Glucose mass conc 129 mg/dL High 70-100 [facility] Comment on above: Result Comment: NORM AL <100 mg/dLPREDIABETES 101-126 mg/dLDIABETES 126 mg/dL or higher Performed By: #### A CBC, BMPF, MG ####[place] [address] Potassium molar conc 3.7 mmol/L Normal 3.5-5.1 [facility] Comment on above: Performed By: #### A CBC, BMPF, MG ####[place] [address] Sodium 138 mmol/L Normal 137-145 [facility] Comment on above: Performed By: #### A CBC, BMPF, MG ####[place] [address] CBCon 07-01-2017 ABSOLUTE BAS 0.0 X10 [facility] Comment on above: Result Comment: Test ing performed at [place] [address] Performed By: #### A URNC ####[place] [address] ABSOLUTE EOS 0.00 X10 Normal [facility] Comment on above: Performed By: #### A URNC ####[place] [address] Basophils/100 WBC Auto (Bld) 0.3 % Normal 0.0-2.0 [facility] Comment on above: Performed By: #### A URNC ####[place] [address] DTYPE AUTO DIFF Normal [facility] Comment on above: Performed By: #### A URNC ####Testing performed at [address] [place] [address] Eosinophils/100 leukocytes 0.2 % Normal 0.0-11.0 [facility] Comment on above: Performed By: #### A URNC ####Testing performed at [address] [address] Lymphocytes 1.20 X10 Normal [facility] Comment on above: Performed By: #### A URNC ####Testing performed at [address] [address] Lymphocytes/100 leukocytes 13.1 % Low 20.0-55.0 [facility] Comment on above: Performed By: #### A URNC ####Testing performed at [address] [address] Monocytes 0.8 X10 Normal [facility] Comment on above: Performed By: #### A URNC ####Testing performed at [address] [address] Monocytes/100 leukocytes 9.4 % Normal 0.0-10.0 [facility] Comment on above: Performed By: #### A URNC ####Testing performed at [address] [address] Neutrophils 6.8 x10 Normal 1.0-7.0 [facility] Comment on above: Performed By: #### A URNC ####Testing performed at [address] [address] Neutrophils/100 leukocytes 77.0 % High 37.0-75.0 [facility] Comment on above: Performed By: #### A URNC ####Testing performed at [address] [address] Erythrocyte distribution width Auto Ratio (RBC) 14.1 % Normal 11.5-14.5 [facility] Comment on above: Performed By: #### A URNC ####Testing performed at [address] [address] Erythrocytes (RBC) 3.35 /cmm Low 4.0-5.4 [facility] Comment on above: Performed By: #### A URNC ####[place] [address] Hematocrit (HCT) 30.6 % Low 36.0-48.0 [facility] Comment on above: Performed By: #### A URNC ####[place] [address] Hemoglobin mass conc (Bld) 10.5 g/dL Low 12.0-16.0 [facility] Comment on above: Performed By: #### A URNC ####[place] [address] MCH 31.3 pg Normal 26.0-35.0 [facility] Comment on above: Performed By: #### A URNC ####[place] [address] MCHC mass conc (RBC) 34.3 g/dL Normal 27.0-37.0 [facility] Comment on above: Performed By: #### A URNC ####[place] [address] MCV 91.4 fL Normal 80.0-100.0 [facility] Comment on above: Performed By: #### A URNC ####[place] [address] Platelet mean volume (PMV) 10.0 fL Normal 7.4-11.0 [facility] Comment on above: Result Comment: Test ing performed at [place] [address] Performed By: #### A URNC ####[place] [address] Platelets 134 /cmm Normal 130.0-400.0 [facility] Comment on above: Performed By: #### A URNC ####[place] [address] WBC (Leukocytes) 8.9 /cmm Normal 3.6-13.0 [facility] Comment on above: Performed By: #### A URNC ####[place] [address] MAGNESIUMon 07-01-2017 Magnesium 1.5 mg/dL Low 1.6-2.3 [facility] Comment on above: Result Comment: Test ing performed at [place] [address] Performed By: #### A CBC, BMPF, MG ####[place] [address] NURSING NOTEon 07-01-2017 [facility] NOTES Normal [facility] NOT[facility] Normal [facility] NOT[facility] Normal [facility] NOT[facility] Normal [facility] NOTES Normal [facility] NOTES Normal [facility] NOT[facility] Normal [facility] NOT[facility] Normal [facility] NOT[facility] Normal [facility] Normal [facility] Normal [facility] RAPID TOX SCREEN,URINE WITH REFLEXon 07-01-2017 AMPHETAMINE Negative Normal NEGATIVE [facility] Comment on above: Result Comment: <500 ng/ml CUTOFF Performed By: #### A URNC ####[place] [address] BARBITURATES Negative Normal NEGATIVE [facility] Comment on above: Result Comment: <200 ng/ml CUTOFF Performed By: #### A URNC ####[place] [address] BUPRENORPHINE Negative Normal NEGATIVE [facility] Comment on above: Result Comment: <10 ng/ml CUTOFFTesting performed at [place] [address] Performed By: #### A URNC ####[place] [address] METHAMPHETAMINE Negative Normal NEGATIVE [facility] Comment on above: Result Comment: <500 ng/ml CUTOFF Performed By: #### A URNC ####[place] [address] OXYCODONE Negative Normal NEGATIVE [facility] Comment on above: Result Comment: <100 ng/ml CUTOFF Performed By: #### A URNC ####Testing performed at [address] [address] PROPOXYPHENE Negative Normal NEGATIVE [facility] Comment on above: Result Comment: <300 ng/ml CUTOFF Performed By: #### A URNC ####Testing performed at [address] [address] Urine, benzodiazepines presence Negative Normal NEGATIVE [facility] Comment on above: Result Comment: <150 ng/ml CUTOFF Performed By: #### A URNC ####Testing performed at [address] [address] Urine, cannabinoids presence Negative Normal NEGATIVE [facility] Comment on above: Result Comment: <50 ng/ml CUTOFF Performed By: #### A URNC ####Testing performed at [place] [id number] Urine, cocaine presence Negative Normal NEGATIVE [facility] Comment on above: Result Comment: <150 ng/ml CUTOFF Performed By: #### A URNC ####Testing performed at [address] [address] Urine, methadone presence Negative Normal NEGATIVE [facility] Comment on above: Result Comment: <200 ng/ml CUTOFF Performed By: #### A URNC ####Testing performed at [address] [address] Urine, opiates presence Negative Normal NEGATIVE [facility] Comment on above: Result Comment: <100 ng/ml CUTOFF Performed By: #### A URNC ####Testing performed at [address] [address] Urine, phencyclidine presence Negative Normal NEGATIVE [facility] Comment on above: Result Comment: <25 ng/ml CUTOFF Performed By: #### A URNC ####Testing performed at [address] [address] Urine, tricyclic antidepressants Negative Normal NEGATIVE [facility] Comment on above: Result Comment: <300 ng/ml CUTOFF Performed By: #### A URNC ####Testing performed at [place] [id number] CBCon 06-19-2017 Basophils/100 WBC Auto (Bld) 0 % Normal 0.0-2.0 [facility] Comment on above: Performed By: #### U HCGT, UMAC, UMIC ####Testing performed at [address] [address] DTYPE AUTO DIFF Normal [facility] Comment on above: Result Comment: AUTO DIFF RESULTS VERIFIED BY SCAN Performed By: #### U HCGT, UMAC, UMIC ####[place] [address] Eosinophils/100 leukocytes 1 % Normal 0.0-11.0 [facility] Comment on above: Performed By: #### U HCGT, UMAC, UMIC ####[place] [address] Erythrocyte morphology NORMAL Normal [facility] Comment on above: Performed By: #### U HCGT, UMAC, UMIC ####[place] [address] Lymphocytes/100 leukocytes 20 % Normal 20.0-55.0 [facility] Comment on above: Performed By: #### U HCGT, UMAC, UMIC ####[place] [address] Monocytes/100 leukocytes 9 % Normal 0.0-10.0 [facility] Comment on above: Performed By: #### U HCGT, UMAC, UMIC ####[place] [address] Neutrophils/100 leukocytes 70 % Normal 37.0-75.0 [facility] Comment on above: Performed By: #### U HCGT, UMAC, UMIC ####Testing performed at [place] [id number] PLATELET COMMENT GIANT PLTS Normal [facility] Comment on above: Result Comment: ADEQ UATETesting performed at [place] [address] Performed By: #### U HCGT, UMAC, UMIC ####[place] [address] Erythrocyte distribution width Auto Ratio (RBC) 14.3 % Normal 11.5-14.5 [facility] Comment on above: Performed By: #### U HCGT, UMAC, UMIC ####[place] [address] Erythrocytes (RBC) 3.80 /cmm Low 4.0-5.4 [facility] Comment on above: Performed By: #### U HCGT, UMAC, UMIC ####[place] [address] Hematocrit (HCT) 34.8 % Low 36.0-48.0 [facility] Comment on above: Performed By: #### U HCGT, UMAC, UMIC ####[place] [address] Hemoglobin mass conc (Bld) 12.0 g/dL Normal 12.0-16.0 [facility] Comment on above: Performed By: #### U HCGT, UMAC, UMIC ####[place] [address] MCH 31.5 pg Normal 26.0-35.0 [facility] Comment on above: Performed By: #### U HCGT, UMAC, UMIC ####[place] [address] MCHC mass conc (RBC) 34.4 g/dL Normal 27.0-37.0 [facility] Comment on above: Performed By: #### U HCGT, UMAC, UMIC ####[place] [address] MCV 91.4 fL Normal 80.0-100.0 [facility] Comment on above: Performed By: #### U HCGT, UMAC, UMIC ####[place] [address] Platelet mean volume (PMV) 10.2 fL Normal 7.4-11.0 [facility] Comment on above: Result Comment: Test ing performed at [place] [address] Performed By: #### U HCGT, UMAC, UMIC ####[place] [address] Platelets 155 /cmm Normal 130.0-400.0 [facility] Comment on above: Performed By: #### U HCGT, UMAC, UMIC ####[place] [address] WBC (Leukocytes) 7.5 /cmm Normal 3.6-13.0 [facility] Comment on above: Performed By: #### U HCGT, UMAC, UMIC ####[place] [address] PROGRESSon 06-19-2017 [facility] NOTES Normal [facility] CBCon 06-03-2017 ABSOLUTE BAS 0.0 X10 Normal [facility] Comment on above: Result Comment: Test ing performed at [place] [address] Performed By: #### U HCGT, UMAC, UMIC ####[place] [address] ABSOLUTE EOS 0.10 X10 Normal [facility] Comment on above: Performed By: #### U HCGT, UMAC, UMIC ####[place] [address] Basophils/100 WBC Auto (Bld) 0.3 % Normal 0.0-2.0 [facility] Comment on above: Performed By: #### U HCGT, UMAC, UMIC ####[place] [address] DTYPE AUTO DIFF Normal [facility] Comment on above: Performed By: #### U HCGT, UMAC, UMIC ####[place] [address] Eosinophils/100 leukocytes 1.3 % Normal 0.0-11.0 [facility] Comment on above: Performed By: #### U HCGT, UMAC, UMIC ####Testing performed at [address] [address] Lymphocytes 1.60 X10 Normal [facility] Comment on above: Performed By: #### U HCGT, UMAC, UMIC ####[place] [address] Lymphocytes/100 leukocytes 19.9 % Low 20.0-55.0 [facility] Comment on above: Performed By: #### U HCGT, UMAC, UMIC ####[place] [address] Monocytes 0.5 X10 Normal [facility] Comment on above: Performed By: #### U HCGT, UMAC, UMIC ####[place] [address] Monocytes/100 leukocytes 6.7 % Normal 0.0-10.0 [facility] Comment on above: Performed By: #### U HCGT, UMAC, UMIC ####[place] [address] Neutrophils 5.8 x10 Normal 1.0-7.0 [facility] Comment on above: Performed By: #### U HCGT, UMAC, UMIC ####Testing performed at [place] [id number] Neutrophils/100 leukocytes 71.8 % Normal 37.0-75.0 [facility] Comment on above: Performed By: #### U HCGT, UMAC, UMIC ####[place] [address] Erythrocyte distribution width Auto Ratio (RBC) 13.7 % Normal 11.5-14.5 [facility] Comment on above: Performed By: #### U HCGT, UMAC, UMIC ####Testing performed at [place] [id number] Erythrocytes (RBC) 3.45 /cmm Low 4.0-5.4 [facility] Comment on above: Performed By: #### U HCGT, UMAC, UMIC ####[place] [address] Hematocrit (HCT) 31.5 % Low 36.0-48.0 [facility] Comment on above: Performed By: #### U HCGT, UMAC, UMIC ####[place] [address] Hemoglobin mass conc (Bld) 10.7 g/dL Low 12.0-16.0 [facility] Comment on above: Performed By: #### U HCGT, UMAC, UMIC ####[place] [address] MCH 31.1 pg Normal 26.0-35.0 [facility] Comment on above: Performed By: #### U HCGT, UMAC, UMIC ####[place] [address] MCHC mass conc (RBC) 34.1 g/dL Normal 27.0-37.0 [facility] Comment on above: Performed By: #### U HCGT, UMAC, UMIC ####[place] [address] MCV 91.3 fL Normal 80.0-100.0 [facility] Comment on above: Performed By: #### U HCGT, UMAC, UMIC ####[place] [address] Platelet mean volume (PMV) 10.4 fL Normal 7.4-11.0 [facility] Comment on above: Performed By: #### U HCGT, UMAC, UMIC ####[place] [address] Platelets 149 /cmm Normal 130.0-400.0 [facility] Comment on above: Performed By: #### U HCGT, UMAC, UMIC ####[place] [address] WBC (Leukocytes) 8.1 /cmm Normal 3.6-13.0 [facility] Comment on above: Performed By: #### U HCGT, UMAC, UMIC ####[place] [address] GLUCOSE FASTINGon 06-03-2017 Glucose mass conc 125 mg/dL High 70-100 [facility] Comment on above: Result Comment: NORM AL <100 mg/dLPREDIABETES 101-126 mg/dLDIABETES 126 mg/dL or higherTesting performed at [place] [address] Performed By: #### U HCGT, UMAC, UMIC ####[place] [address] GLUCOSE POST LOADINGon 06-03 Glucose mass conc 123 mg/dL Normal 65-140 [facility] Comment on above: Result Comment: Test ing performed at [place] [address] Performed By: #### U HCGT, UMAC, UMIC ####[place] [address] PROGRESSon 06-03-2017 [facility] NOTES Normal [facility] NOT[facility] Normal [facility] Addendumon 05-01-2017 [facility] HIM CAC NOTES Normal [facility] PROGRESSon 05-01-2017 [facility] NOTES Normal [facility] SENDOUT TESTon 04-15-2017 SENDOUT TEST SPECIMEN SENT TO REFERENCE LAB FOR TESTING [facility] Comment on above: Result Comment: [id number] AFPTesting performed at [place] [address] Performed By: #### U HCGT, UMAC, UMIC ####[place] [address] PROGRESSon 04-08-2017 [facility] NOTES Normal [facility] CBCon 03-11-2017 ABSOLUTE BAS 0.0 X10 [facility] Comment on above: Result Comment: Test ing performed at [place] [address] Performed By: #### U HCGT, UMAC, UMIC ####[place] [address] ABSOLUTE EOS 0.00 X10 Normal [facility] Comment on above: Performed By: #### U HCGT, UMAC, UMIC ####[place] [address] Basophils/100 WBC Auto (Bld) 0.2 % Normal 0.0-2.0 [facility] Comment on above: Performed By: #### U HCGT, UMAC, UMIC ####[place] [address] DTYPE AUTO DIFF Normal [facility] Comment on above: Performed By: #### U HCGT, UMAC, UMIC ####[place] [address] Eosinophils/100 leukocytes 0.1 % Normal 0.0-11.0 [facility] Comment on above: Performed By: #### U HCGT, UMAC, UMIC ####[place] [address] Lymphocytes 0.50 X10 Normal [facility] Comment on above: Performed By: #### U HCGT, UMAC, UMIC ####[place] [address] Lymphocytes/100 leukocytes 9.1 % Low 20.0-55.0 [facility] Comment on above: Performed By: #### U HCGT, UMAC, UMIC ####[place] [address] Monocytes 0.4 X10 Normal [facility] Comment on above: Performed By: #### U HCGT, UMAC, UMIC ####[place] [address] Monocytes/100 leukocytes 7.0 % Normal 0.0-10.0 [facility] Comment on above: Performed By: #### U HCGT, UMAC, UMIC ####[place] [address] Neutrophils 4.8 x10 Normal 1.0-7.0 [facility] Comment on above: Performed By: #### U HCGT, UMAC, UMIC ####[place] [address] Neutrophils/100 leukocytes 83.6 % High 37.0-75.0 [facility] Comment on above: Performed By: #### U HCGT, UMAC, UMIC ####[place] [address] Erythrocyte distribution width Auto Ratio (RBC) 14.2 % Normal 11.5-14.5 [facility] Comment on above: Performed By: #### U HCGT, UMAC, UMIC ####[place] [address] Erythrocytes (RBC) 4.48 /cmm Normal 4.0-5.4 [facility] Comment on above: Performed By: #### U HCGT, UMAC, UMIC ####[place] [address] Hematocrit (HCT) 39.7 % Normal 36.0-48.0 [facility] Comment on above: Performed By: #### U HCGT, UMAC, UMIC ####[place] [address] Hemoglobin mass conc (Bld) 13.4 g/dL Normal 12.0-16.0 [facility] Comment on above: Performed By: #### U HCGT, UMAC, UMIC ####[place] [address] MCH 29.8 pg Normal 26.0-35.0 [facility] Comment on above: Performed By: #### U HCGT, UMAC, UMIC ####Testing performed at [address] mass conc (RBC) 33.7 g/dL Normal 27.0-37.0 [facility] Comment on above: Performed By: #### U HCGT, UMAC, UMIC ####[place] [address] MCV 88.5 fL Normal 80.0-100.0 [facility] Comment on above: Performed By: #### U HCGT, UMAC, UMIC ####[place] [address] Platelet mean volume (PMV) 9.9 fL Normal 7.4-11.0 [facility] Comment on above: Performed By: #### U HCGT, UMAC, UMIC ####[place] [address] Platelets 146 /cmm Normal 130.0-400.0 [facility] Comment on above: Performed By: #### U HCGT, UMAC, UMIC ####[place] [address] WBC (Leukocytes) 5.8 /cmm Normal 3.6-13.0 [facility] Comment on above: Performed By: #### U HCGT, UMAC, UMIC ####[place] [address] CMP FASTINGon 03-11-2017 A:G RATIO 1.3 RATIO Normal 1.3-2.2 [facility] Comment on above: Performed By: #### U HCGT, UMAC, UMIC ####[place] [address] Alanine aminotransferase (ALT) 46 U/L Normal 9-52 [facility] Comment on above: Performed By: #### U HCGT, UMAC, UMIC ####[place] [address] Albumin 4.1 G/dl Normal 3.7-5.6 [facility] Comment on above: Performed By: #### U HCGT, UMAC, UMIC ####Testing performed at [address] [address] Alkaline phosphatase (ALP) 64 U/L Low 70-230 [facility] Comment on above: Performed By: #### U HCGT, UMAC, UMIC ####Testing performed at [address] [address] Aspartate aminotransferase (AST) 26 U/L Normal 10-30 [facility] Comment on above: Performed By: #### U HCGT, UMAC, UMIC ####Testing performed at [address] [address] Bilirubin (total) 0.7 mg/dL Normal 0.2-1.3 [facility] Comment on above: Performed By: #### U HCGT, UMAC, UMIC ####[place] [address] BUN (urea nitrogen) 9 mg/dL Normal 7-20 [facility] Comment on above: Performed By: #### U HCGT, UMAC, UMIC ####[place] [address] Calcium 9.4 mg/dL Normal 9.2-10.7 [facility] Comment on above: Performed By: #### U HCGT, UMAC, UMIC ####Testing performed at [address] [address] Chloride 104 mmol/L Normal 98-107 [facility] Comment on above: Performed By: #### U HCGT, UMAC, UMIC ####Testing performed at [address] [address] CO2 21 mmol/L Low 22-30 [facility] Comment on above: Performed By: #### U HCGT, UMAC, UMIC ####Testing performed at [address] [address] Creatinine 0.6 mg/dL Normal 0.6-1.2 [facility] Comment on above: Performed By: #### U HCGT, UMAC, UMIC ####[place] [address] eGFR (non-black) Unable to calculate GFR due to inappropriate age/gender/creatinin e value. Normal [facility] Comment on above: Result Comment: Test ing performed at [place] [address] Performed By: #### U HCGT, UMAC, UMIC ####[place] [address] Glucose mass conc 80 mg/dL Normal 70-100 [facility] Comment on above: Result Comment: NORM AL <100 mg/dLPREDIABETES 101-126 mg/dLDIABETES 126 mg/dL or higher Performed By: #### U HCGT, UMAC, UMIC ####[place] [address] Potassium molar conc 3.7 mmol/L Normal 3.5-5.1 [facility] Comment on above: Performed By: #### U HCGT, UMAC, UMIC ####[place] [address] Protein 7.2 g/dL Normal 6.3-8.6 [facility] Comment on above: Performed By: #### U HCGT, UMAC, UMIC ####[place] [address] Sodium 138 mmol/L Normal 137-145 [facility] Comment on above: Performed By: #### U HCGT, UMAC, UMIC ####[place] [address] ED NOTEon 03-11-2017 [facility] NOTES Normal [facility] NOT[facility] Normal [facility] LIPASE,SERUMon 03-11-2017 LIPASE,SERUM 60 U/L Normal 23-300 [facility] Comment on above: Result Comment: Test ing performed at [place] [address] Performed By: #### U HCGT, UMAC, UMIC ####Testing performed [place] [address] ED NOTEon 03-10-2017 [facility] NOTES Normal [facility] ED PROVIDERon 03-10-2017 [facility] NOTES Normal [facility] PROGRESSon 02-27-2017 [facility] NOTES Normal [facility] SENDOUT TESTon 02-27-2017 SENDOUT TEST SPECIMEN SENT TO REFERENCE LAB FOR TESTING Normal [facility] Comment on above: Result Comment: SENT TO OUTSIDE LAB NATERATesting performed at [place] [address] Performed By: #### U HCGT, UMAC, UMIC ####[place] [address] CHLAM/GC AMPLIFon 01-17-2017 CHLAMYDIA NUC. AMP Negative Normal Negative [facility] GONOCOCCUS NUC. AMP Negative Normal Negative [facility] Comment on above: Result Comment: [facility] HBSAG SCREENon 01-16-2017 BSA (Body Surface Area) Negative Normal Negative [facility] Comment on above: Result Comment: [facility] Performed By: #### U HCGT, UMAC, UMIC ####[place] [address] RPRon 01-16-2017 Reagin antibody presence NONREACTIVE Normal NONREACTIVE [facility] Comment on above: Result Comment: Test ing performed at [place] [address] Performed By: #### U HCGT, UMAC, UMIC ####[place] [address] RUBELLA SCREENon 01-16-2017 RUBELLA SCREEN Positive Normal POSITIVE [facility] Comment on above: Result Comment: POSI TIVE RESULT INDICATES PRESUMED IMMUNITYTesting performed at [place] [address] Performed By: #### U HCGT, UMAC, UMIC ####[place] [address] ABO/RH(D)on 01-15-2017 ABO/RH(D) ABO/RH(D) A NEGATIVE Testing performed at [place] [address] Normal [facility] Comment on above: Performed By: #### U HCGT, UMAC, UMIC ####[place] [address] ANTIBODY SCREENon 01-15-2017 ANTIBODY SCREEN ANTIBODY SCREEN NEGATIVE WORKUP EXPIRES 01/18/2017 Testing performed at [address] Comment on above: Performed By: #### U HCGT, UMAC, UMIC ####[place] [address] CBCon 01-15-2017 ABSOLUTE BAS 0.0 X10 [facility] Comment on above: Result Comment: Test ing performed at [place] [address] Performed By: #### A CBC, GHIV, RPR, RUBL ####[place] [address]#### LHBSAG ####Testing performed at [address] [address] ABSOLUTE EOS 0.00 X10 [facility] Comment on above: Performed By: #### A CBC, GHIV, RPR, RUBL ####[place] [address]#### LHBSAG ####Testing performed at [address] [address] Basophils/100 WBC Auto (Bld) 0.4 % Normal 0.0-2.0 [facility] Comment on above: Performed By: #### A CBC, GHIV, RPR, RUBL ####[place] [address]#### LHBSAG ####Testing performed at [address] [address] DTYPE AUTO DIFF Normal [facility] Comment on above: Performed By: #### A CBC, GHIV, RPR, RUBL ####[facility] performed [place] [address]#### LHBSAG ####Testing performed at [facility], [id number] [facility] [place] [address] Eosinophils/100 leukocytes 0.6 % Normal 0.0-11.0 [facility] Comment on above: Performed By: #### A CBC, GHIV, RPR, RUBL ####[place] [address]#### LHBSAG ####Testing performed at [facility], [id number] [place] [address] Lymphocytes 1.60 X10 Normal [facility] Comment on above: Performed By: #### A CBC, GHIV, RPR, RUBL ####[place] [address]#### LHBSAG ####Testing performed at [facility], [id number] [place] [address] Lymphocytes/100 leukocytes 23.8 % Normal 20.0-55.0 [facility] Comment on above: Performed By: #### A CBC, GHIV, RPR, RUBL ####[place] [address]#### LHBSAG ####Testing performed at [facility], [id number] [place] [address] Monocytes 0.5 X10 Normal [facility] Comment on above: Performed By: #### A CBC, GHIV, RPR, RUBL ####[place] [address]#### LHBSAG ####Testing performed at [facility], [id number] [place] [address] Monocytes/100 leukocytes 7.1 % Normal 0.0-10.0 [facility] Comment on above: Performed By: #### A CBC, GHIV, RPR, RUBL ####[place] [address]#### LHBSAG ####Testing performed at [address] [address] Neutrophils 4.6 x10 Normal 1.0-7.0 [facility] Comment on above: Performed By: #### A CBC, GHIV, RPR, RUBL ####[place] [address]#### LHBSAG ####Testing performed at [facility], [address] [place] [address] Neutrophils/100 leukocytes 68.1 % Normal 37.0-75.0 [facility] Comment on above: Performed By: #### A CBC, GHIV, RPR, RUBL ####[place] [address]#### LHBSAG ####Testing performed at [address] [address] Erythrocyte distribution width Auto Ratio (RBC) 13.9 % Normal 11.5-14.5 [facility] Comment on above: Performed By: #### A CBC, GHIV, RPR, RUBL ####[place] [address]#### LHBSAG ####Testing performed at [address] [address] Erythrocytes (RBC) 4.69 /cmm Normal 4.0-5.4 [facility] Comment on above: Performed By: #### A CBC, GHIV, RPR, RUBL ####[place] [address]#### LHBSAG ####Testing performed at [address] [address] Hematocrit (HCT) 42.0 % Normal 36.0-48.0 [facility] Comment on above: Performed By: #### A CBC, GHIV, RPR, RUBL ####Testing performed at [place] [id number]#### LHBSAG ####Testing performed at [address] [address] Hemoglobin mass conc (Bld) 14.1 g/dL Normal 12.0-16.0 [facility] Comment on above: Performed By: #### A CBC, GHIV, RPR, RUBL ####[place] [address]#### LHBSAG ####Testing performed at [address] [address] MCH 30.0 pg Normal 26.0-35.0 [facility] Comment on above: Performed By: #### A CBC, GHIV, RPR, RUBL ####[place] [address]#### LHBSAG ####Testing performed at [address] [address] MCHC mass conc (RBC) 33.5 g/dL Normal 27.0-37.0 [facility] Comment on above: Performed By: #### A CBC, GHIV, RPR, RUBL ####[place] [address]#### LHBSAG ####Testing performed at [address] [address] MCV 89.6 fL Normal 80.0-100.0 [facility] Comment on above: Performed By: #### A CBC, GHIV, RPR, RUBL ####[place] [address]#### LHBSAG ####Testing performed at [address] [address] Platelet mean volume (PMV) 10.6 fL Normal 7.4-11.0 [facility] Comment on above: Performed By: #### A CBC, GHIV, RPR, RUBL ####[place] [address]#### LHBSAG ####Testing performed at [address] [place] [address] Platelets 189 /cmm Normal 130.0-400.0 [facility] Comment on above: Performed By: #### A CBC, GHIV, RPR, RUBL ####[place] [address]#### LHBSAG ####Testing performed at [facility], [address] [place] [address] WBC (Leukocytes) 6.8 /cmm Normal 3.6-13.0 [facility] Comment on above: Performed By: #### A CBC, GHIV, RPR, RUBL ####[place] [address]#### LHBSAG ####Testing performed at [address] [place] [address] HIV 1,2 ABon 01-15-2017 HIV 1,2 NONREACTIVE Normal NONREACTIVE [facility] Comment on above: Result Comment: Test ing performed at [place] [address] Performed By: #### A CBC, GHIV, RPR, RUBL ####[place] [address]#### LHBSAG ####Testing performed at [address] [place] [address] PROGRESSon 01-15-2017 [facility] NOTES Normal [facility] RAPID TOX SCREEN,URINE WITH REFLEXon 01-15-2017 AMPHETAMINE Negative Normal NEGATIVE [facility] Comment on above: Result Comment: <500 ng/ml CUTOFF Performed By: #### U HCGT, UMAC, UMIC ####Testing performed at [address] [address] BARBITURATES Negative Normal NEGATIVE [facility] Comment on above: Result Comment: <200 ng/ml CUTOFF Performed By: #### U HCGT, UMAC, UMIC ####[place] [address] BUPRENORPHINE Negative Normal NEGATIVE [facility] [facility] Comment on above: Result Comment: <10 ng/ml CUTOFFTesting performed at [place] [address] Performed By: #### U HCGT, UMAC, UMIC ####[place] [address] METHAMPHETAMINE Negative Normal NEGATIVE [facility] Comment on above: Result Comment: <500 ng/ml CUTOFF Performed By: #### U HCGT, UMAC, UMIC ####[place] [address] OXYCODONE Negative Normal NEGATIVE [facility] Comment on above: Result Comment: <100 ng/ml CUTOFF Performed By: #### U HCGT, UMAC, UMIC ####[place] [address] PROPOXYPHENE Negative Normal NEGATIVE [facility] Comment on above: Result Comment: <300 ng/ml CUTOFF Performed By: #### U HCGT, UMAC, UMIC ####[place] [address] Urine, benzodiazepines presence Negative Normal NEGATIVE [facility] Comment on above: Result Comment: <150 ng/ml CUTOFF Performed By: #### U HCGT, UMAC, UMIC ####[place] [address] Urine, cannabinoids presence Negative Normal NEGATIVE [facility] Comment on above: Result Comment: <50 ng/ml CUTOFF Performed By: #### U HCGT, UMAC, UMIC ####[place] [address] Urine, cocaine presence Negative Normal NEGATIVE [facility] Comment on above: Result Comment: <150 ng/ml CUTOFF Performed By: #### U HCGT, UMAC, UMIC ####[place] [address] Urine, methadone presence Negative Normal NEGATIVE [facility] Comment on above: Result Comment: <200 ng/ml CUTOFF Performed By: #### U HCGT, UMAC, UMIC ####[place] [address] Urine, opiates presence Negative Normal NEGATIVE [facility] Comment on above: Result Comment: <100 ng/ml CUTOFF Performed By: #### U HCGT, UMAC, UMIC ####[place] [address] Urine, phencyclidine presence Negative Normal NEGATIVE [facility] Comment on above: Result Comment: <25 ng/ml CUTOFF Performed By: #### U HCGT, UMAC, UMIC ####[place] [address] Urine, tricyclic antidepressants Negative Normal NEGATIVE [facility] Comment on above: Result Comment: <300 ng/ml CUTOFF Performed By: #### U HCGT, UMAC, UMIC ####[place] [address] URINE CULTUREon 01-15-2017 Urine culture, bacteria SPECIMEN DESCRIP TION URINE CLEAN CATCHUA DIPSTICK LEUKOCYTE NEGATIVE * Result Note: NITRITE NEGATIVE *CULTURE NO GROWTH 2 DAYS * Result Note: Testing performed at [place] [address] *REPORT STATUS 01/17/2017 * Result Note: FINAL * Normal [facility] Comment on above: Performed By: #### U HCGT, UMAC, UMIC ####[place] [address] ED NOTEon 12-31-2016 [facility] NOTES Normal [facility] ED PROVIDERon 12-30-2016 [facility] NOTES Normal [facility] URINE CULTUREon 12-30-2016 Urine culture, bacteria SPECIMEN DESCRIP TION URINE - OTHERUA DIPSTICK LEUKOCYTE POSITIVE * Result Note: NITRITE NEGATIVE *CULTURE NO PATHOGENS ISOLATED * Result Note: Testing performed at [place] [address] *REPORT STATUS 01/01/2017 * Result Note: FINAL * Normal [facility] Comment on above: Performed By: #### A URNC ####[place] [address] URINE HCG QUALon 12-30-2016 HCG.beta subunit ( test) Ql (U) Positive Normal [facility] Comment on above: Result Comment: Test ing performed at [place] [address] Performed By: #### U HCGT, UMAC, UMIC ####[place] [address] URINE MACROSCOPICon 12-31-19 17 Bilirubin Ql (U) Negative Normal NEGATIVE [facility] Comment on above: Performed By: #### U HCGT, UMAC, UMIC ####[place] [address] URINE HEMOGLOBIN Negative Normal NEGATIVE [facility] Comment on above: Performed By: #### U HCGT, UMAC, UMIC ####[place] [address] URINE KETONE TRACE Abnormal NEGATIVE [facility] Comment on above: Performed By: #### U HCGT, UMAC, UMIC ####[place] [address] URINE LEUKOTEST TRACE Abnormal NEGATIVE [facility] Comment on above: Result Comment: Test ing performed at [place] [address] Performed By: #### U HCGT, UMAC, UMIC ####[place] [address] URINE NITRATES Negative Normal NEGATIVE [facility] Comment on above: Performed By: #### U HCGT, UMAC, UMIC ####[place] [address] URINE SPEC GRAVITY 1.025 Normal 1.010-1.025 [facility] Comment on above: Performed By: #### U HCGT, UMAC, UMIC ####[place] [address] URINE TOTAL PROTEIN Negative Normal NEGATIVE [facility] Comment on above: Performed By: #### U HCGT, UMAC, UMIC ####[place] [address] Urine, clarity CLEAR Normal CLEAR [facility] Comment on above: Performed By: #### U HCGT, UMAC, UMIC ####[place] [address] Urine, color YELLOW Normal YELLOW [facility] Comment on above: Performed By: #### U HCGT, UMAC, UMIC ####[place] [address] Urine, glucose presence Negative Normal NEGATIVE [facility] Comment on above: Performed By: #### U HCGT, UMAC, UMIC ####[place] [address] Urine, pH 5.5 [pH] Normal 5.0-7.0 [facility] Comment on above: Performed By: #### U HCGT, UMAC, UMIC ####[place] [address] Urine, urobilinogen 0.2 mg/dl Normal 0.2-1.0 [facility] Comment on above: Performed By: #### U HCGT, UMAC, UMIC ####[place] [address] URINE MICROSCOPICon 12-31-19 17 CRYSTAL NONE Normal NONE [facility] Comment on above: Performed By: #### U HCGT, UMAC, UMIC ####[place] [address] URINE COMMENT REFLEX CULTURE PER ESTABLISHED CRITERIA. Normal [facility] Comment on above: Result Comment: Test ing performed at [place] [address] Performed By: #### U HCGT, UMAC, UMIC ####[place] [address] URINE WBC'S 1 TO 5 Normal NEGATIVE [facility] Comment on above: Performed By: #### U HCGT, UMAC, UMIC ####Testing performed at [address] [address] Urine, bacteria in sediment 1+ Abnormal NEGATIVE [facility] Comment on above: Performed By: #### U HCGT, UMAC, UMIC ####Testing performed at [address] [address] Urine, casts in sediment NONE Normal NONE [facility] Comment on above: Performed By: #### U HCGT, UMAC, UMIC ####Testing performed at [address] [address] Urine, epithelial cells in sediment 1 TO 5 Normal [facility] Comment on above: Performed By: #### U HCGT, UMAC, UMIC ####Testing performed at [address] [address] Urine, erythrocytes Negative Normal NEGATIVE [facility] Comment on above: Performed By: #### U HCGT, UMAC, UMIC ####Testing performed at [address] [address] Urine, mucus presence in sediment Negative Normal NEGATIVE [facility] Comment on above: Performed By: #### U HCGT, UMAC, UMIC ####Testing performed at [address] [address] ED NOTEon 09-13-2016 [facility] NOTES Normal [facility] Vital Signs Date Time Vital Sign Value Performing Clinician Facility 08-24-2024 14:31-0400 Diastolic blood pressure 63 mm[Hg] Treatment 2 [facility] 08-24-2024 14:31-0400 Heart rate 83 /min Treatment 2 [facility] 08-24-2024 14:31-0400 Respiratory rate 16 /min [facility] 14:31-0400 SaO2% (BldA) [Mass fraction] 100 % Treatment 2 [facility] 08-24-2024 14:31-0400 Systolic blood pressure 105 mm[Hg] Treatment 2 [facility] 08-24-2024 13:46-0400 Body temperature 98.71 [degF] Treatment 2 [facility] 08-24-2024 10:45-0400 Body mass index (BMI) [Ratio] 32.24 kg/m2 Prabhu Ortez MD Work Phone: [facility] 08-24-2024 10:45-0400 Body weight 82.56 kg Prabhu Ortez MD Work Phone: [facility] 08-24-2024 10:45-0400 Diastolic blood pressure 60 mm[Hg] Prabhu Ortez MD Work Phone: [facility] 08-24-2024 10:45-0400 Systolic blood pressure 110 mm[Hg] Prabhu Ortez MD Work Phone: [facility] 08-20-2024 15:21-0400 Diastolic blood pressure 71 mm[Hg] Treatment 2 [facility] 08-20-2024 15:21-0400 Heart rate 89 /min Treatment 2 [facility] 08-20-2024 15:21-0400 Respiratory rate 18 /min Treatment 2 [facility] 08-20-2024 15:21-0400 SaO2% (BldA) [Mass fraction] 98 % Treatment 2 [facility] 08-20-2024 15:21-0400 Systolic blood pressure 107 mm[Hg] Treatment 2 [facility] 08-17-2024 15:15-0400 Body temperature 98.01 [degF] Treatment 1 [facility] 08-17-2024 15:15-0400 Diastolic blood pressure 67 mm[Hg] Treatment 1 [facility] 08-17-2024 15:15-0400 Heart rate 95 /min Treatment 1 [facility] 08-17-2024 15:15-0400 Respiratory rate 16 /min Treatment 1 [facility] 08-17-2024 15:15-0400 SaO2% (BldA) [Mass fraction] 96 % Treatment 1 [facility] 08-17-2024 15:15-0400 Systolic blood pressure 117 mm[Hg] Treatment 1 [facility] 08-12-2024 15:13-0400 Diastolic blood pressure 62 mm[Hg] Treatment 2 [facility] 08-12-2024 15:13-0400 Heart rate 82 /min Treatment 2 [facility] 08-12-2024 15:13-0400 Respiratory rate 16 /min Treatment 2 [facility] 08-12-2024 15:13-0400 SaO2% (BldA) [Mass fraction] 100 % Treatment 2 [facility] 08-12-2024 15:13-0400 Systolic blood pressure 101 mm[Hg] Treatment 2 [facility] 08-12-2024 14:31-0400 Body temperature 98.01 [degF] Treatment 2 [facility] 08-10-2024 11:27-0400 Body mass index (BMI) [Ratio] 31.53 kg/m2 Prabhu Ortez MD Work Phone: [facility] 08-10-2024 11:27-0400 Body weight 80.74 kg Prabhu Ortez MD Work Phone: [facility] 08-10-2024 11:27-0400 Diastolic blood pressure 60 mm[Hg] Prabuh Ortez MD Work Phone: [facility] 08-10-2024 11:27-0400 Systolic blood pressure 112 mm[Hg] Prabhu Ortez MD Work Phone: [facility] 08-03-2024 15:49-0400 Diastolic blood pressure 61 mm[Hg] Rachell Jackden PROFESSOR OF ENV[employer]ONMENT[employer] SCIENCE-C Work Phone: [facility] 08-03-2024 15:49-0400 Heart rate 85 /min Rachell Jackden PROFESSOR OF ENVIRONMENTAL SCIENCE-C Work Phone: [facility] 08-03-2024 15:49-0400 Systolic blood pressure 109 mm[Hg] Rachell Jackden PROFESSOR OF ENVIRONMENTAL SCIENCE-C Work Phone: [facility] 08-03-2024 13:42-0400 Body height 160.02 cm Rachell Jackden PROFESSOR OF ENVIRONMENTAL SCIENCE-C Work Phone: [facility] 08-03-2024 13:42-0400 Body mass index (BMI) [Ratio] 31.3 kg/m2 Rachell Jackden PROFESSOR OF ENVIRONMENTAL SCIENCE-C Work Phone: [facility] 08-03-2024 13:42-0400 Body weight 80.19 kg Rachell Jackden PROFESSOR OF ENVIRONMENTAL SCIENCE-C Work Phone: [facility] 08-03-2024 13:36-0400 Body temperature 98.1 [degF] Rachell Jackden PROFESSOR OF ENVIRONMENTAL SCIENCE-C Work Phone: [facility] 08-03-2024 13:36-0400 Respiratory rate 14 /min Rachell Queden PROFESSOR OF ENVIRONMENTAL SCIENCE-C Work Phone: [facility] 08-03-2024 13:36-0400 SaO2% (BldA) [Mass fraction] 100 % Rachell Queden PROFESSOR OF ENVIRONMENTAL SCIENCE-C Work Phone: [facility] 08-03-2024 11:55-0400 Body height 160 cm Ramiro Hugo MD Work Phone: [facility] 08-03-2024 11:55-0400 Body mass index (BMI) [Ratio] 31.18 kg/m2 Ramiro Hugo MD Work Phone: [facility] 08-03-2024 11:55-0400 Body weight 79.83 kg Ramiro Hugo MD Work Phone: [facility] 08-03-2024 11:55-0400 Diastolic blood pressure 70 mm[Hg] Ramiro Hugo MD Work Phone: [facility] 08-03-2024 11:55-0400 Heart rate 92 /min Ramiro Hugo MD Work Phone: [facility] 08-03-2024 11:55-0400 SaO2% (BldA) [Mass fraction] 98 % Ramiro Hugo MD Work Phone: [facility] 08-03-2024 11:55-0400 Systolic blood pressure 104 mm[Hg] Ramiro Hugo MD Work Phone: [facility] 07-27-2024 13:21-0400 Body mass index (BMI) [Ratio] 31.11 kg/m2 Yamila Ballard MD Work Phone: [facility] 07-27-2024 13:21-0400 Body weight 79.65 kg Yamila Ballard MD Work Phone: [facility] 07-27-2024 13:21-0400 Diastolic blood pressure 66 mm[Hg] Yamila Ballard MD Work Phone: [facility] 07-27-2024 13:21-0400 Systolic blood pressure 118 mm[Hg] Yamila Ballard MD Work Phone: [facility] 06-01-2024 09:46-0400 Body mass index (BMI) [Ratio] 26.22 kg/m2 Jaquelin Hi [employer]CNM Work Phone: [facility] 06-01-2024 09:46-0400 Body weight 67.13 kg Jaquelin Hi [employer]CNM Work Phone: [facility] 06-01-2024 09:46-0400 Diastolic blood pressure 60 mm[Hg] Jaquelin Hi [employer]CNM Work Phone: [facility] 06-01-2024 09:46-0400 Systolic blood pressure 106 mm[Hg] Jaquelin Hi [employer]CNM Work Phone: [facility] 05-04-2024 14:30-0400 Body mass index (BMI) [Ratio] 24.27 kg/m2 Jaquelin Hi [employer]CNM Work Phone: [facility] 05-04-2024 14:30-0400 Body weight 62.14 kg Jaquelin Hi [employer]CNM Work Phone: [facility] 05-04-2024 14:30-0400 Diastolic blood pressure 60 mm[Hg] Jaquelin Hi [employer]CNM Work Phone: [facility] 05-04-2024 14:30-0400 Systolic blood pressure 108 mm[Hg] Jaquelin Hi [employer]CNM Work Phone: [facility] 04-07-2024 14:47-0500 Body mass index (BMI) [Ratio] 23.03 kg/m2 Jaquelin Hi [employer]CNM Work Phone: [facility] 04-07-2024 14:47-0500 Body weight 58.97 kg Jaquelin Hi [employer]CNM Work Phone: [facility] 04-07-2024 14:47-0500 Diastolic blood pressure 62 mm[Hg] Jaquelin Hi [employer]CNM Work Phone: [facility] 04-07-2024 14:47-0500 Systolic blood pressure 116 mm[Hg] Jaquelin Hi [employer]CN[employer] Work Phone: [facility] 03-09-2024 13:14-0500 Body height 160 cm Jaquelin Hi [employer]CNM Work Phone: [facility] 03-09-2024 13:14-0500 Body mass index (BMI) [Ratio] 23.03 kg/m2 Jaquelin Hi [employer]CN[employer] Work Phone: [facility] 03-09-2024 13:14-0500 Body weight 58.97 kg Jaquelin Hi [employer]CN[employer] Work Phone: [facility] 03-09-2024 13:14-0500 Diastolic blood pressure 64 mm[Hg] Jaquelin Hi [employer]CNM Work Phone: [facility] 03-09-2024 13:14-0500 Systolic blood pressure 108 mm[Hg] Jaquelin Hi [employer]CNM Work Phone: [facility] 02-18-2024 14:40-0500 Diastolic blood pressure 87 mm[Hg] Rachell Queden [employer]-DOCTOR ASSISTANT Work Phone: [facility] 02-18-2024 14:40-0500 Heart rate 65 /min Rachell Queden [employer]-DOCTOR ASSISTANT Work Phone: [facility] 02-18-2024 14:40-0500 Respiratory rate 20 /min Rachell Queden [employer]-DOCTOR ASSISTANT Work Phone: [facility] 02-18-2024 14:40-0500 SaO2% (BldA) [Mass fraction] 100 % Rachell Amador [employer]-DOCTOR ASSISTANT Work Phone: [facility] 02-18-2024 14:40-0500 Systolic blood pressure 104 mm[Hg] Rachell Jackden [employer]-DOCTOR ASSISTANT Work Phone: [facility] 02-18-2024 10:54-0500 Body height 160 cm Rachell Jackden [employer]-DOCTOR ASSISTANT Work Phone: [facility] 02-18-2024 10:54-0500 Body mass index (BMI) [Ratio] 24.09 kg/m2 Rachell Jackden [employer]-DOCTOR ASSISTANT Work Phone: [facility] 02-18-2024 10:54-0500 Body temperature 98.1 [degF] Rachell Jackden [employer]-DOCTOR ASSISTANT Work Phone: [facility] 02-18-2024 10:54-0500 Body weight 61.69 kg Rachell Jackden [employer]-DOCTOR ASSISTANT Work Phone: [facility] 01-27-2024 09:38-0500 Body mass index (BMI) [Ratio] 23.21 kg/m2 Ramiro Hugo MD Work Phone: [facility] 01-27-2024 09:38-0500 Body weight 59.42 kg Ramiro Hugo MD Work Phone: [facility] 01-27-2024 09:38-0500 Diastolic blood pressure 74 mm[Hg] Ramiro Hguo MD Work Phone: [facility] 01-27-2024 09:38-0500 Heart rate 68 /min Ramiro Hugo MD Work Phone: [facility] 01-27-2024 09:38-0500 Respiratory rate 16 /min Ramiro Hugo MD Work Phone: [facility] 01-27-2024 09:38-0500 SaO2% (BldA) [Mass fraction] 94 % Ramiro Hugo MD Work Phone: [facility] 01-27-2024 09:38-0500 Systolic blood pressure 122 mm[Hg] Ramiro Hugo MD Work Phone: [facility] 12-26-2023 10:08-0500 Body height 160 cm Rachell Queden [employer].DOCTOR ASSISTANT Work Phone: [facility] 12-26-2023 10:08-0500 Body mass index (BMI) [Ratio] 21.97 kg/m2 Rachell Queden [employer].DOCTOR ASSISTANT Work Phone: [facility] 12-26-2023 10:08-0500 Body temperature 98.01 [degF] Rachell Queden [employer].DOCTOR ASSISTANT Work Phone: [facility] 12-26-2023 10:08-0500 Body weight 56.25 kg Rachell Queden [employer].DOCTOR ASSISTANT Work Phone: [facility] 12-26-2023 10:08-0500 Diastolic blood pressure 62 mm[Hg] Rachell Queden [employer].DOCTOR ASSISTANT Work Phone: [facility] 12-26-2023 10:08-0500 Heart rate 52 /min Rachell Queden [employer].DOCTOR ASSISTANT Work Phone: [facility] 12-26-2023 10:08-0500 Respiratory rate 16 /min Rachell Queden [employer].DOCTOR ASSISTANT Work Phone: [facility] 12-26-2023 10:08-0500 SaO2% (BldA) [Mass fraction] 100 % Rachell Queden [employer].DOCTOR ASSISTANT Work Phone: [facility] 12-26-2023 10:08-0500 Systolic blood pressure 122 mm[Hg] Rachell Queden [employer].DOCTOR ASSISTANT Work Phone: [facility] 12-10-2023 13:20-0400 Body height 160 cm Norbert Noriega MD Work Phone: [facility] 12-10-2023 13:20-0400 Body mass index (BMI) [Ratio] 21.15 kg/m2 Norbert Noriega MD Work Phone: [facility] 12-10-2023 13:20-0400 Body weight 54.16 kg Norbert Noriega MD Work Phone: [facility] 12-10-2023 13:20-0400 Diastolic blood pressure 60 mm[Hg] Norbert Noriega MD Work Phone: [facility] 12-10-2023 13:20-0400 Heart rate 73 /min Norbert Noriega MD Work Phone: [facility] 12-10-2023 13:20-0400 SaO2% (BldA) [Mass fraction] 97 % Norbert Noriega MD Work Phone: [facility] 12-10-2023 13:20-0400 Systolic blood pressure 92 mm[Hg] Norbert Noriega MD Work Phone: [facility] 11-24-2023 12:45-0400 Body mass index (BMI) [Ratio] 21.26 kg/m2 Sandra Kelsey [employer].DOCTOR ASSISTANT Work Phone: [facility] 11-24-2023 12:45-0400 Body weight 54.43 kg Sandra Rupert [employer].DOCTOR ASSISTANT Work Phone: [facility] 11-24-2023 12:45-0400 Diastolic blood pressure 64 mm[Hg] Sandra Kelsey [employer].DOCTOR ASSISTANT Work Phone: [facility] 11-24-2023 12:45-0400 Systolic blood pressure 118 mm[Hg] Sandra Kelsey [employer].DOCTOR ASSISTANT Work Phone: [facility] 10-03-2023 13:15-0400 SaO2% (BldA) [Mass fraction] 97 % Ramiro Hugo MD Work Phone: [facility] 10-03-2023 12:45-0400 Diastolic blood pressure 58 mm[Hg] Ramiro Hugo MD Work Phone: [facility] 10-03-2023 12:45-0400 Heart rate 68 /min Ramiro Hugo MD Work Phone: [facility] 10-03-2023 12:45-0400 Respiratory rate 16 /min Ramiro Hugo MD Work Phone: [facility] 10-03-2023 12:45-0400 Systolic blood pressure 112 mm[Hg] Ramiro Hugo MD Work Phone: [facility] 10-03-2023 11:47-0400 Body temperature 97.5 [degF] Ramiro Hugo MD Work Phone: [facility] 10-03-2023 06:57-0400 Body height 160 cm Ramiro Hugo MD Work Phone: [facility] 10-03-2023 06:57-0400 Body mass index (BMI) [Ratio] 20.39 kg/m2 Ramiro Hugo MD Work Phone: [facility] 10-03-2023 06:57-0400 Body weight 52.2 kg Ramiro Hugo MD Work Phone: [facility] 09-29-2023 14:35-0400 Body height 160 cm Conor Duarte MD Work Phone: [facility] 09-29-2023 14:35-0400 Body mass index (BMI) [Ratio] 20.27 kg/m2 Conor Duarte MD Work Phone: [facility] 09-29-2023 14:35-0400 Body temperature 97.59 [degF] Conor Duarte MD Work Phone: [facility] 09-29-2023 14:35-0400 Body weight 51.89 kg Conor Duarte MD Work Phone: [facility] 09-29-2023 14:35-0400 Diastolic blood pressure 62 mm[Hg] Conor Duarte MD Work Phone: [facility] 09-29-2023 14:35-0400 Heart rate 88 /min Conor Duarte MD Work Phone: [facility] 09-29-2023 14:35-0400 SaO2% (BldA) [Mass fraction] 100 % Conor Duarte MD Work Phone: [facility] 09-29-2023 14:35-0400 Systolic blood pressure 100 mm[Hg] Conor Duarte MD Work Phone: [facility] 09-23-2023 11:41-0400 Body mass index (BMI) [Ratio] 19.84 kg/m2 Mary Jo Barnett MD Work Phone: [facility] 09-23-2023 11:41-0400 Body weight 50.8 kg Mary Jo Barnett MD Work Phone: [facility] 09-23-2023 11:41-0400 Diastolic blood pressure 60 mm[Hg] Mary Jo Barnett MD Work Phone: [facility] 09-23-2023 11:41-0400 Systolic blood pressure 100 mm[Hg] Mary Jo Barnett MD Work Phone: [facility] 09-18-2023 10:10-0400 Body height 160 cm Barbi Tian [employer].DOCTOR ASSISTANT Work Phone: [facility] 09-18-2023 10:10-0400 Body mass index (BMI) [Ratio] 20.73 kg/m2 Barbi Tian [employer].DOCTOR ASSISTANT Work Phone: [facility] 09-18-2023 10:10-0400 Body weight 53.07 kg Barbi Tian [employer].DOCTOR ASSISTANT Work Phone: [facility] 09-18-2023 10:10-0400 Diastolic blood pressure 70 mm[Hg] Barbi Haury CHILD CAREGIVER [employer]IVATE HOME.DOCTOR ASSISTANT Work Phone: [facility] 09-18-2023 10:10-0400 Heart rate 78 /min Barbi Haury CHILD CAREGIVER [employer]IVATE HOME.DOCTOR ASSISTANT Work Phone: [facility] 09-18-2023 10:10-0400 Respiratory rate 12 /min Barbi Haury CHILD CAREGIVER [employer]IVATE HOME.DOCTOR ASSISTANT Work Phone: [facility] 09-18-2023 10:10-0400 SaO2% (BldA) [Mass fraction] 98 % Barbi Haury CHILD CAREGIVER [employer]IVATE HOME.DOCTOR ASSISTANT Work Phone: [facility] 09-18-2023 10:10-0400 Systolic blood pressure 110 mm[Hg] Barbi Haury CHILD CAREGIVER PRIVATE HOME.DOCTOR ASSISTANT Work Phone: [facility] 09-12-2023 10:36-0400 Body height 160 cm Mary Jo Barnett MD Work Phone: [facility] 09-12-2023 10:36-0400 Body mass index (BMI) [Ratio] 20.37 kg/m2 Mary Jo Barnett MD Work Phone: [facility] 09-12-2023 10:36-0400 Body weight 52.16 kg Mary Jo Barnett MD Work Phone: [facility] 09-12-2023 10:36-0400 Diastolic blood pressure 60 mm[Hg] Mary Jo Barnett MD Work Phone: [facility] 09-12-2023 10:36-0400 Heart rate 73 /min Mary Jo Barnett MD Work Phone: [facility] 09-12-2023 10:36-0400 SaO2% (BldA) [Mass fraction] 98 % Mary Jo Barnett MD Work Phone: [facility] 09-12-2023 10:36-0400 Systolic blood pressure 100 mm[Hg] Mary Jo Barnett MD Work Phone: [facility] 09-01-2023 09:19-0400 Body height 160 cm Pacc 1 Work Phone: [facility] 09-01-2023 09:19-0400 Body mass index (BMI) [Ratio] 21.08 kg/m2 Pacc 1 Work Phone: [facility] 09-01-2023 09:19-0400 Body temperature 97.9 [degF] Pacc 1 Work Phone: [facility] 09-01-2023 09:19-0400 Body weight 53.98 kg Pacc 1 Work Phone: [facility] 09-01-2023 09:19-0400 Diastolic blood pressure 60 mm[Hg] Pacc 1 Work Phone: [facility] 09-01-2023 09:19-0400 Heart rate 66 /min Pacc 1 Work Phone: [facility] 09-01-2023 09:19-0400 Respiratory rate 14 /min Pacc 1 Work Phone: [facility] 09-01-2023 09:19-0400 SaO2% (BldA) [Mass fraction] 100 % Pacc 1 Work Phone: [facility] 09-01-2023 09:19-0400 Systolic blood pressure 96 mm[Hg] Pacc 1 Work Phone: [facility] 08-21-2023 11:35-0400 Body height 160 cm Ramiro Hugo MD Work Phone: [facility] 08-21-2023 11:35-0400 Body mass index (BMI) [Ratio] 21.79 kg/m2 Ramiro Hugo MD Work Phone: [facility] 08-21-2023 11:35-0400 Body weight 55.79 kg Ramiro Hugo MD Work Phone: [facility] 08-21-2023 11:35-0400 Diastolic blood pressure 63 mm[Hg] Ramiro Hugo MD Work Phone: [facility] 08-21-2023 11:35-0400 Heart rate 75 /min Ramiro Hugo MD Work Phone: [facility] 08-21-2023 11:35-0400 SaO2% (BldA) [Mass fraction] 98 % Ramiro Hugo MD Work Phone: [facility] 08-21-2023 11:35-0400 Systolic blood pressure 98 mm[Hg] Ramiro Hugo MD Work Phone: [facility] 08-20-2023 09:23-0400 Body mass index (BMI) [Ratio] 20.9 kg/m2 Mary Jo Barnett MD Work Phone: [facility] 08-20-2023 09:23-0400 Body weight 53.52 kg Mary Jo Barnett MD Work Phone: [facility] 08-20-2023 09:23-0400 Diastolic blood pressure 60 mm[Hg] Mary Jo Barnett MD Work Phone: [facility] 08-20-2023 09:23-0400 Systolic blood pressure 94 mm[Hg] Mary Jo Barnett MD Work Phone: [facility] 08-19-2023 15:47-0400 Body mass index (BMI) [Ratio] 21.12 kg/m2 Sandra Rupert CHILD CAREGIVER PRIVATE HOME.DOCTOR ASSISTANT Work Phone: [facility] 08-19-2023 15:47-0400 Body weight 54.07 kg Sandra Rupert CHILD CAREGIVER PRIVATE HOME.DOCTOR ASSISTANT Work Phone: [facility] 08-19-2023 15:47-0400 Diastolic blood pressure 58 mm[Hg] Sandra Kelsey CHILD CAREGIVER PRIVATE HOME.DOCTOR ASSISTANT Work Phone: [facility] 08-19-2023 15:47-0400 Systolic blood pressure 98 mm[Hg] Sandra Kelsey CHILD CAREGIVER PRIVATE HOME.DOCTOR ASSISTANT Work Phone: [facility] 08-18-2023 08:21-0400 Body mass index (BMI) [Ratio] 21.26 kg/m2 Sandra Kelsey CHILD CAREGIVER PRIVATE HOME.DOCTOR ASSISTANT Work Phone: [facility] 08-18-2023 08:21-0400 Body weight 54.43 kg Sandra Rupert CHILD CAREGIVER PRIVATE HOME.DOCTOR ASSISTANT Work Phone: [facility] 08-18-2023 08:21-0400 Diastolic blood pressure 64 mm[Hg] Sandra Rupert CHILD CAREGIVER PRIVATE HOME.DOCTOR ASSISTANT Work Phone: [facility] 08-18-2023 08:21-0400 Systolic blood pressure 100 mm[Hg] Sandra Kelsey CHILD CAREGIVER PRIVATE HOME.DOCTOR ASSISTANT Work Phone: [facility] 07-31-2023 15:04-0400 Body height 160 cm Rachell Queden CHILD CAREGIVER PRIVATE HOME.DOCTOR ASSISTANT Work Phone: [facility] 07-31-2023 15:04-0400 Body mass index (BMI) [Ratio] 20.73 kg/m2 Rachell Queden CHILD CAREGIVER PRIVATE HOME.DOCTOR ASSISTANT Work Phone: [facility] 07-31-2023 15:04-0400 Body temperature 97.9 [degF] Rachell Queden CHILD CAREGIVER PRIVATE HOME.DOCTOR ASSISTANT Work Phone: [facility] 07-31-2023 15:04-0400 Body weight 53.07 kg Rachell Queden CHILD CAREGIVER PRIVATE HOME.DOCTOR ASSISTANT Work Phone: [facility] 07-31-2023 15:04-0400 Diastolic blood pressure 62 mm[Hg] Rachell Queden CHILD CAREGIVER PRIVATE HOME.DOCTOR ASSISTANT Work Phone: [facility] 07-31-2023 15:04-0400 Heart rate 73 /min Rachell Queden CHILD CAREGIVER PRIVATE HOME.DOCTOR ASSISTANT Work Phone: [facility] 07-31-2023 15:04-0400 Respiratory rate 16 /min Rachell Queden CHILD CAREGIVER PRIVATE HOME.DOCTOR ASSISTANT Work Phone: [facility] 07-31-2023 15:04-0400 SaO2% (BldA) [Mass fraction] 98 % Rachell Amador CHILD CAREGIVER PRIVATE HOME.DOCTOR ASSISTANT Work Phone: [facility] 07-31-2023 15:04-0400 Systolic blood pressure 102 mm[Hg] Rachell Amador CHILD CAREGIVER PRIVATE HOME.DOCTOR ASSISTANT Work Phone: [facility] 07-24-2023 10:49-0400 Body mass index (BMI) [Ratio] 21.43 kg/m2 Gino Plotts CHILD CAREGIVER PRIVATE HOME.CNM Work Phone: [facility] 07-24-2023 10:49-0400 Body weight 54.88 kg Gino Plotjadon CHILD CAREGIVER PRIVATE HOME.CNM Work Phone: [facility] 07-24-2023 10:49-0400 Diastolic blood pressure 64 mm[Hg] Gino Plotts CHILD CAREGIVER [employer]IVATE HOME.CNM Work Phone: [facility] 07-24-2023 10:49-0400 Systolic blood pressure 100 mm[Hg] Gino Plotts CHILD CAREGIVER [employer]IVATE HOME.CNM Work Phone: [facility] 07-02-2023 13:26-0400 Body height 160 cm Mitra Reed CHILD CAREGIVER PRIVATE HOME.DOCTOR ASSISTANT Work Phone: [facility] 07-02-2023 13:26-0400 Body mass index (BMI) [Ratio] 20.37 kg/m2 Mitra Reed CHILD CAREGIVER PRIVATE HOME.DOCTOR ASSISTANT Work Phone: [facility] 07-02-2023 13:26-0400 Body temperature 98.49 [degF] Mitra Reed CHILD CAREGIVER PRIVATE HOME.DOCTOR ASSISTANT Work Phone: [facility] 07-02-2023 13:26-0400 Body weight 52.16 kg Mitra Reed CHILD CAREGIVER PRIVATE HOME.DOCTOR ASSISTANT Work Phone: [facility] 07-02-2023 13:26-0400 Diastolic blood pressure 60 mm[Hg] Mitra Reed CHILD CAREGIVER PRIVATE HOME.DOCTOR ASSISTANT Work Phone: [facility] 07-02-2023 13:26-0400 Heart rate 87 /min Mitra Reed APRN.DOCTOR ASSISTANT Work Phone: [facility] 07-02-2023 13:26-0400 SaO2% (BldA) [Mass fraction] 99 % Mitra Reed APRN.DOCTOR ASSISTANT Work Phone: [facility] 07-02-2023 13:26-0400 Systolic blood pressure 100 mm[Hg] Mitra Reed APRN.DOCTOR ASSISTANT Work Phone: [facility] 07-02-2023 08:13-0400 Body height 159.7 cm Miki Jaramillo MD Work Phone: [facility] 07-02-2023 08:13-0400 Body mass index (BMI) [Ratio] 20.6 kg/m2 Miki Jaramillo MD Work Phone: [facility] 07-02-2023 08:13-0400 Body temperature 97.3 [degF] Miki Jaramillo MD Work Phone: [facility] 07-02-2023 08:13-0400 Body weight 52.53 kg Miki Jaramillo MD Work Phone: [facility] 07-02-2023 08:13-0400 Diastolic blood pressure 69 mm[Hg] Miki Jaramillo MD Work Phone: [facility] 07-02-2023 08:13-0400 Heart rate 86 /min Miki Jaramillo MD Work Phone: [facility] 07-02-2023 08:13-0400 Respiratory rate 16 /min Miki Jaramillo MD Work Phone: [facility] 07-02-2023 08:13-0400 SaO2% (BldA) [Mass fraction] 99 % Miki Jaramillo MD Work Phone: [facility] 07-02-2023 08:13-0400 Systolic blood pressure 104 mm[Hg] Miki Jaramillo MD Work Phone: [facility] 06-26-2023 13:24-0400 Body mass index (BMI) [Ratio] 20.73 kg/m2 Prabhu Ortez MD Work Phone: [facility] 06-26-2023 13:24-0400 Body weight 53.07 kg Prabhu Ortez MD Work Phone: [facility] 06-26-2023 13:24-0400 Diastolic blood pressure 64 mm[Hg] Prabhu Ortez MD Work Phone: [facility] 06-26-2023 13:24-0400 Systolic blood pressure 102 mm[Hg] Prabhu Ortez MD Work Phone: [facility] 06-25-2023 13:56-0400 Diastolic blood pressure 86 mm[Hg] Norbert Noriega MD Work Phone: [facility] 06-25-2023 13:56-0400 Systolic blood pressure 102 mm[Hg] Norbert Noriega MD Work Phone: [facility] 06-25-2023 13:50-0400 Body height 160 cm Norbert Noriega MD Work Phone: [facility] 06-25-2023 13:50-0400 Body mass index (BMI) [Ratio] 20.9 kg/m2 Norbert Noriega MD Work Phone: [facility] 06-25-2023 13:50-0400 Body weight 53.52 kg Norbert Noriega MD Work Phone: [facility] 06-25-2023 13:50-0400 Heart rate 100 /min Norbert Noriega MD Work Phone: [facility] 06-25-2023 13:50-0400 SaO2% (BldA) [Mass fraction] 99 % Norbert Noriega MD Work Phone: [facility] 06-24-2023 22:01-0400 Diastolic blood pressure 77 mm[Hg] Rachell Amador CHILD CAREGIVER PRIVATE HOME-DOCTOR ASSISTANT Work Phone: [facility] 06-24-2023 22:01-0400 Heart rate 70 /min Rachell Jackden CHILD CAREGIVER PRIVATE HOME-DOCTOR ASSISTANT Work Phone: [facility] 06-24-2023 22:01-0400 Respiratory rate 18 /min Rachell Jackden CHILD CAREGIVER PRIVATE HOME-DOCTOR ASSISTANT Work Phone: [facility] 06-24-2023 22:01-0400 SaO2% (BldA) [Mass fraction] 98 % Rachell Jackden CHILD CAREGIVER PRIVATE HOME-DOCTOR ASSISTANT Work Phone: [facility] 06-24-2023 22:01-0400 Systolic blood pressure 125 mm[Hg] Rachell Jackden CHILD CAREGIVER PRIVATE HOME-DOCTOR ASSISTANT Work Phone: [facility] 06-24-2023 18:41-0400 Body height 160 cm Rachell Amador CHILD CAREGIVER PRIVATE HOME-DOCTOR ASSISTANT Work Phone: [facility] 06-24-2023 18:41-0400 Body mass index (BMI) [Ratio] 20.73 kg/m2 Rachell Amador CHILD CAREGIVER PRIVATE HOME-DOCTOR ASSISTANT Work Phone: [facility] 06-24-2023 18:41-0400 Body temperature 97.39 [degF] Rachell Jackden CHILD CAREGIVER PRIVATE HOME-DOCTOR ASSISTANT Work Phone: [facility] 06-24-2023 18:41-0400 Body weight 53.07 kg Rachlel Amador CHILD CAREGIVER PRIVATE HOME-DOCTOR ASSISTANT Work Phone: [facility] 06-22-2023 09:33-0400 Body height 160.02 cm [facility] 06-22-2023 09:33-0400 Body mass index (BMI) [Ratio] 22.2 kg/m2 [facility] 06-22-2023 09:33-0400 Body temperature 97.3 [degF] [facility] 06-22-2023 09:33-0400 Body weight 57 kg [facility] 06-22-2023 09:33-0400 Diastolic blood pressure 90 mm[Hg] [facility] 06-22-2023 09:33-0400 Heart rate 81 /min [facility] 06-22-2023 09:33-0400 Respiratory rate 16 /min [facility] 06-22-2023 09:33-0400 SaO2% (BldA) [Mass fraction] 99 % [facility] 06-22-2023 09:33-0400 Systolic blood pressure 120 mm[Hg] [facility] 06-21-2023 09:30-0400 Diastolic blood pressure 72 mm[Hg] Saturnino Lemhenrique DO Work Phone: [facility] 06-21-2023 09:30-0400 Heart rate 78 /min Saturnino Lemhenrique DO Work Phone: [facility] 06-21-2023 09:30-0400 Respiratory rate 16 /min Saturnino Álvaro DO Work Phone: [facility] 06-21-2023 09:30-0400 SaO2% (BldA) [Mass fraction] 100 % Saturnino Lemhenrique DO Work Phone: [facility] 06-21-2023 09:30-0400 Systolic blood pressure 122 mm[Hg] Saturnino Lemhenrique DO Work Phone: [facility] 06-21-2023 08:19-0400 Body mass index (BMI) [Ratio] 22.32 kg/m2 Saturnino Lemasters DO Work Phone: [facility] 06-21-2023 08:19-0400 Body weight 57.15 kg Saturnino Lemasters DO Work Phone: [facility] 06-21-2023 08:17-0400 Body temperature 98.4 [degF] Saturnino Lemasters DO Work Phone: [facility] 06-20-2023 11:24-0400 Body temperature 97.2 [degF] Saturnino Lemasters DO Work Phone: [facility] 06-20-2023 11:24-0400 Diastolic blood pressure 53 mm[Hg] Saturnino Lemasters DO Work Phone: [facility] 06-20-2023 11:24-0400 Heart rate 92 /min Saturnino Lemasters DO Work Phone: [facility] 06-20-2023 11:24-0400 Respiratory rate 16 /min Saturnino Lemasters DO Work Phone: [facility] 06-20-2023 11:24-0400 SaO2% (BldA) [Mass fraction] 96 % Saturnino Lemasters DO Work Phone: [facility] 06-20-2023 11:24-0400 Systolic blood pressure 90 mm[Hg] Saturnino Lemhenrique DO Work Phone: [facility] 06-20-2023 03:29-0400 Body height 160 cm Saturnino Lemhenrique DO Work Phone: [facility] 06-20-2023 03:29-0400 Body mass index (BMI) [Ratio] 22.38 kg/m2 Saturnino Lemasters DO Work Phone: [facility] 06-20-2023 03:29-0400 Body weight 57.3 kg Saturnino Velázquez DO Work Phone: [facility] 06-18-2023 18:05-0400 Diastolic blood pressure 68 mm[Hg] Saturnino Lemasters DO Work Phone: [facility] 06-18-2023 18:05-0400 Heart rate 50 /min Saturnino Lemasters DO Work Phone: [facility] 06-18-2023 18:05-0400 Respiratory rate 18 /min Saturnino Lemasters DO Work Phone: [facility] 06-18-2023 18:05-0400 SaO2% (BldA) [Mass fraction] 100 % Saturnino Lemasters DO Work Phone: [facility] 06-18-2023 18:05-0400 Systolic blood pressure 107 mm[Hg] Saturninomaurice Velázquez DO Work Phone: [facility] 06-18-2023 17:21-0400 Body height 160 cm Saturnino Velázquez DO Work Phone: [facility] 06-18-2023 17:21-0400 Body mass index (BMI) [Ratio] 21.79 kg/m2 Saturnino Velázquez DO Work Phone: [facility] 06-18-2023 17:21-0400 Body temperature 97.81 [degF] Saturnino Álvaro DO Work Phone: [facility] 06-18-2023 17:21-0400 Body weight 55.79 kg Saturninomaurice Velázquez DO Work Phone: [facility] 06-17-2023 11:30-0400 Diastolic blood pressure 65 mm[Hg] Alla Llanes MD Work Phone: [facility] 06-17-2023 11:30-0400 Heart rate 68 /min Alla Llanes MD Work Phone: [facility] 06-17-2023 11:30-0400 Respiratory rate 16 /min Alla Llanes MD Work Phone: [facility] 06-17-2023 11:30-0400 SaO2% (BldA) [Mass fraction] 100 % Alla Llanes MD Work Phone: [facility] 06-17-2023 11:30-0400 Systolic blood pressure 105 mm[Hg] Alla Llanes MD Work Phone: [facility] 06-17-2023 10:33-0400 Body temperature 96.69 [degF] Alla Llanes MD Work Phone: [facility] 06-17-2023 08:42-0400 Body height 160 cm lAla Llanes MD Work Phone: [facility] 06-17-2023 08:42-0400 Body mass index (BMI) [Ratio] 21.95 kg/m2 Alla Llanes MD Work Phone: [facility] 06-17-2023 08:42-0400 Body weight 56.2 kg Alla Llanes MD Work Phone: [facility] 06-03-2023 14:08-0400 Body height 160 cm Alla Llanes MD Work Phone: [facility] 06-03-2023 14:08-0400 Diastolic blood pressure 58 mm[Hg] Alla Llanes MD Work Phone: [facility] 06-03-2023 14:08-0400 Heart rate 90 /min Alla Llanes MD Work Phone: [facility] 06-03-2023 14:08-0400 Systolic blood pressure 98 mm[Hg] Alla Llanes MD Work Phone: [facility] 06-03-2023 10:49-0400 Body height 160 cm Rachell Queden CHILD CAREGIVER PRIVATE HOME.DOCTOR ASSISTANT Work Phone: [facility] 06-03-2023 10:49-0400 Body mass index (BMI) [Ratio] 23.03 kg/m2 Rachell Queden CHILD CAREGIVER PRIVATE HOME.DOCTOR ASSISTANT Work Phone: [facility] 06-03-2023 10:49-0400 Body temperature 98.01 [degF] Rachell Queden CHILD CAREGIVER PRIVATE HOME.DOCTOR ASSISTANT Work Phone: [facility] 06-03-2023 10:49-0400 Body weight 58.97 kg Rachell Queden CHILD CAREGIVER PRIVATE HOME.DOCTOR ASSISTANT Work Phone: [facility] 06-03-2023 10:49-0400 Diastolic blood pressure 62 mm[Hg] Rachell Queden CHILD CAREGIVER PRIVATE HOME.DOCTOR ASSISTANT Work Phone: [facility] 06-03-2023 10:49-0400 Heart rate 78 /min Rachell Queden CHILD CAREGIVER PRIVATE HOME.DOCTOR ASSISTANT Work Phone: [facility] 06-03-2023 10:49-0400 Respiratory rate 18 /min Rachell Queden CHILD CAREGIVER PRIVATE HOME.DOCTOR ASSISTANT Work Phone: [facility] 06-03-2023 10:49-0400 SaO2% (BldA) [Mass fraction] 97 % Rachell Queden CHILD CAREGIVER PRIVATE HOME.DOCTOR ASSISTANT Work Phone: [facility] 06-03-2023 10:49-0400 Systolic blood pressure 104 mm[Hg] Rachell Queden CHILD CAREGIVER PRIVATE HOME.DOCTOR ASSISTANT Work Phone: [facility] 04-23-2023 13:57-0400 Body weight 54.88 kg Gino Plotts CHILD CAREGIVER PRIVATE HOME.CNM Work Phone: [facility] 04-23-2023 13:57-0400 Diastolic blood pressure 70 mm[Hg] Gino Plotts CHILD CAREGIVER PRIVATE HOME.CNM Work Phone: [facility] 04-23-2023 13:57-0400 Systolic blood pressure 108 mm[Hg] Gino Plotts CHILD CAREGIVER PRIVATE HOME.CNM Work Phone: [facility] 01-30-2023 12:14-0500 Body height 160 cm Prabhu Ortez MD Work Phone: [facility] 01-30-2023 12:14-0500 Body weight 63.5 kg Prabhu Ortez MD Work Phone: [facility] 01-30-2023 12:14-0500 Diastolic blood pressure 72 mm[Hg] Prabhu Ortez MD Work Phone: [facility] 01-30-2023 12:14-0500 Systolic blood pressure 114 mm[Hg] Prabhu Ortez MD Work Phone: [facility] 12-03-2022 14:41-0400 Body weight 70.85 kg Prabhu Ortez MD Work Phone: [facility] 12-03-2022 14:41-0400 Diastolic blood pressure 68 mm[Hg] Prabhu Ortez MD Work Phone: [facility] 12-03-2022 14:41-0400 Systolic blood pressure 108 mm[Hg] Prabhu Ortez MD Work Phone: [facility] 11-19-2022 15:48-0400 Body weight 68.4 kg Prabhu Ortez MD Work Phone: [facility] 11-19-2022 15:48-0400 Diastolic blood pressure 68 mm[Hg] Prabhu Ortez MD Work Phone: [facility] 11-19-2022 15:48-0400 Systolic blood pressure 106 mm[Hg] Prabhu Ortez MD Work Phone: [facility] 11-18-2022 13:14-0400 Body weight 67.5 kg Jaquelin Hi CHILD CAREGIVER PRIVATE HOME.CNM Work Phone: [facility] 11-18-2022 13:14-0400 Diastolic blood pressure 62 mm[Hg] Jaquelin Hi CHILD CAREGIVER PRIVATE HOME.CNM Work Phone: [facility] 11-18-2022 13:14-0400 Systolic blood pressure 98 mm[Hg] Jaquelin Hi CHILD CAREGIVER PRIVATE HOME.CNM Work Phone: [facility] 08-29-2022 17:57-0400 Diastolic blood pressure 71 mm[Hg] [facility] 08-29-2022 17:57-0400 Heart rate 72 /min [facility] 08-29-2022 17:57-0400 Respiratory rate 15 /min [facility] 08-29-2022 17:57-0400 SaO2% (BldA) [Mass fraction] 98 % [facility] 08-29-2022 17:57-0400 Systolic blood pressure 108 mm[Hg] [facility] 08-29-2022 15:30-0400 Body height 160.02 cm [facility] 08-29-2022 15:30-0400 Body mass index (BMI) [Percentile] Per age and sex 70.6 % [facility] 08-29-2022 15:30-0400 Body mass index (BMI) [Ratio] 23.8 kg/m2 [facility] 08-29-2022 15:30-0400 Body temperature 96.8 [degF] [facility] 08-29-2022 15:30-0400 Body weight 61.1 kg [facility] 08-17-2022 13:28-0400 Heart rate 78 /min [facility] 08-17-2022 13:28-0400 Respiratory rate 18 /min [facility] 08-17-2022 13:28-0400 SaO2% (BldA) [Mass fraction] 98 % [facility] 08-17-2022 10:15-0400 Body height 160.02 cm [facility] 08-17-2022 10:15-0400 Body temperature 97.1 [degF] [facility] 08-17-2022 10:15-0400 Diastolic blood pressure 58 mm[Hg] [facility] 08-17-2022 10:15-0400 Systolic blood pressure 102 mm[Hg] [facility] 07-12-2022 19:15-0400 Diastolic blood pressure 66 mm[Hg] No Pcp Required [facility] 07-12-2022 19:15-0400 Heart rate 91 /min No Pcp Required [facility] 07-12-2022 19:15-0400 Respiratory rate 16 /min No Pcp Required [facility] 07-12-2022 19:15-0400 SaO2% (BldA) [Mass fraction] 100 % No Pcp Required [facility] 07-12-2022 19:15-0400 Systolic blood pressure 110 mm[Hg] No Pcp Required [facility] 07-12-2022 15:29-0400 Body height 160 cm No Pcp Required [facility] 07-12-2022 15:29-0400 Body temperature 97.52 [degF] No Pcp Required [facility] 07-12-2022 15:29-0400 Body weight 54.5 kg No Pcp Required [facility] 11-12-2021 19:03-0400 Body temperature 98.6 [degF] Leeann Ascencio APRN.DOCTOR ASSISTANT Work Phone: [facility] 11-12-2021 19:03-0400 Body weight 54.34 kg Leeann Ascencio APRN.DOCTOR ASSISTANT Work Phone: [facility] 11-12-2021 19:03-0400 Diastolic blood pressure 82 mm[Hg] Leeann Silva CHILD CAREGIVER [employer]IVATE HOME.DOCTOR ASSISTANT Work Phone: [facility] 11-12-2021 19:03-0400 Heart rate 87 /min Leeann Silva CHILD CAREGIVER [employer]IVATE HOME.DOCTOR ASSISTANT Work Phone: [facility] 11-12-2021 19:03-0400 Respiratory rate 18 /min Leeann Silva CHILD CAREGIVER [employer]IVATE HOME.DOCTOR ASSISTANT Work Phone: [facility] 11-12-2021 19:03-0400 SaO2% (BldA) [Mass fraction] 100 % Leeann Silva CHILD CAREGIVER [employer]IVATE HOME.DOCTOR ASSISTANT Work Phone: [facility] 11-12-2021 19:03-0400 Systolic blood pressure 116 mm[Hg] Leeann Silva CHILD CAREGIVER [employer]IVATE HOME.DOCTOR ASSISTANT Work Phone: [facility] [facility] 08-14-2021 11:47-0400 Body temperature 98.29 [degF] Steven Pendlebury CHILD CAREGIVER PRIVATE HOME.DOCTOR ASSISTANT Work Phone: [facility] 08-14-2021 11:47-0400 Body weight 49.9 kg Steven Bob CHILD CAREGIVER PRIVATE HOME.DOCTOR ASSISTANT Work Phone: [facility] 08-14-2021 11:47-0400 Diastolic blood pressure 72 mm[Hg] Steven Pendlebury CHILD CAREGIVER PRIVATE HOME.DOCTOR ASSISTANT Work Phone: [facility] 08-14-2021 11:47-0400 Heart rate 80 /min Steven Pendlebury CHILD CAREGIVER PRIVATE HOME.DOCTOR ASSISTANT Work Phone: [facility] 08-14-2021 11:47-0400 Respiratory rate 18 /min Steven Pendlebury CHILD CAREGIVER PRIVATE HOME.DOCTOR ASSISTANT Work Phone: [facility] 08-14-2021 11:47-0400 SaO2% (BldA) [Mass fraction] 99 % Steven Carnesbury CHILD CAREGIVER PRIVATE HOME.DOCTOR ASSISTANT Work Phone: [facility] 08-14-2021 11:47-0400 Systolic blood pressure 102 mm[Hg] Steven Pendlebury CHILD CAREGIVER PRIVATE HOME.DOCTOR ASSISTANT Work Phone: [facility] 03-21-2021 19:30-0500 Diastolic blood pressure 64 mm[Hg] No Pcp Required [facility] 03-21-2021 19:30-0500 Heart rate 68 /min No Pcp Required [facility] 03-21-2021 19:30-0500 Respiratory rate 16 /min No Pcp Required [facility] 03-21-2021 19:30-0500 SaO2% (BldA) [Mass fraction] 96 % No Pcp Required [facility] 03-21-2021 19:30-0500 Systolic blood pressure 112 mm[Hg] No Pcp Required [facility] 03-21-2021 14:50-0500 Body height 160 cm No Pcp Required [facility] 03-21-2021 14:50-0500 Body temperature 98.78 [degF] No Pcp Required [facility] 03-21-2021 14:50-0500 Body weight 50.5 kg No Pcp Required [facility] Encounters Encounter Date Encounter Type Care Provider Facility Start: 10-07-2024 ambulatory Yamila Navarro y:[facility] Start: 09-04-2024 End: 09-04-2024 ambulatory PRABHU ORTEZ Facility:[facility] Start: 08-24-2024 End: 08-24-2024 ambulatory Treatment Room M[facility] 2 INFUSION Comment on above: Maternal iron defici ency anemia complicating , third trimester (HCC) (Primary Dx) Start: 08-24-2024 End: 08-24-2024 ambulatory PRABHU ORTEZ Facility:[facility] Start: 08-24-2024 End: 08-24-2024 Patient encounter procedure Prabhu Ortez MD Work Phone: OB/Gynecology Comment on above: Supervision of high risk in third trimester (HCC) (Primary Dx); Thrombocytopenia affecting (HCC); History of shoulder dystocia in prior ; Antepartum anemia complicating in third trimester ([facility]); Paroxysmal SVT (supraventricular tachycardia) ([facility]); 32 weeks gestation of ([facility]) Start: 08-20-2024 End: 08-20-2024 ambulatory Treatment Room [facility] 2 INFUSION Comment on above: Maternal iron defici ency anemia complicating , third trimester (HCC) (Primary Dx) Start: 08-17-2024 End: 08-17-2024 ambulatory Treatment Room [facility] 1 INFUSION Comment on above: Maternal iron defici ency anemia complicating , third trimester (HCC) (Primary Dx) Start: 08-12-2024 End: 08-12-2024 ambulatory Treatment Room [facility] 2 INFUSION Comment on above: Maternal iron defici ency anemia complicating , third trimester (HCC) (Primary Dx) Start: 08-10-2024 End: 08-10-2024 ambulatory PRABHU ORTEZ Facility:[facility] Start: 08-10-2024 End: 08-10-2024 Patient encounter procedure Prabhu Ortez MD Work Phone: OB/Gynecology Comment on above: Supervision of high risk in third trimester (HCC) (Primary Dx); Thrombocytopenia affecting (HCC); Antepartum anemia complicating in third trimester (HCC); History of shoulder dystocia in prior ; Paroxysmal SVT (supraventricular tachycardia) (HCC) Start: 08-05-2024 End: 08-05-2024 ambulatory RACHELL AMADOR Facility:[facility] Start: 08-05-2024 End: 08-05-2024 Patient encounter procedure Naeyly Gil PA-C Work Phone: BLOOD MANAGEMENT Comment on above: Maternal iron defici ency anemia complicating , third trimester (HCC) (Primary Dx) Start: 08-05-2024 End: 08-05-2024 Telemedicine consultation with patient Nayely Gil PA-C Work Phone: BLOOD MANAGEMENT Start: 08-03-2024 End: 08-18-2024 E-mail encounter from caregiver Nayely Gil PA-C Work Phone: BLOOD MANAGEMENT Start: 08-03-2024 End: 08-03-2024 [facility] Rachell LIZARRAGA Work Phone: [facility] Work Phone: Start: 08-03-2024 End: 08-18-[address] Prabhu Ortez MD [facility] Work Phone: Comment on above: Blood Management Rico ointment Start: 08-03-2024 End: 08-03-2024 ambulatory [facility] Ambulatory Start: 08-03-2024 End: 08-03-2024 Office outpatient visit 25 minutes Ramiro Hugo MD Work Phone: [facility] Office Building Comment on above: SVT (supraventricula r tachycardia) Start: 08-01-2024 End: 08-03-2024 ambulatory Jaquelin Hi CHILD CAREGIVER PRIVATE HOME.CNM Work Phone: OB/Gynecology Comment on above: Preeclampsia Start: 07-28-2024 End: 07-28-2024 Telephone encounter Nurse Mastic Sprayer [place] Work Phone: Obstetrics/Gynecology Comment on above: PRAF Start: 07-27-2024 End: 07-27-2024 Patient encounter procedure Yamila Ballard MD Work Phone: OB/Gynecology Comment on above: Supervision of other high risk pregnancies, second trimester (HCC) (Primary Dx); 28 weeks gestation of (HCC); Rh negative state in antepartum period (HCC); Need for vaccination; Encounter for sterilization; History of shoulder dystocia in prior ; Heartburn during , antepartum, third trimester (HCC) Start: 07-27-2024 End: 07-27-2024 ambulatory [facility] Facility:[facility] Start: 06-29-2024 End: 06-29-2024 ambulatory [facility] Facility:[facility] Start: 06-02-2024 End: 06-02-2024 Telephone encounter Nurse Mastic Sprayer [place] Work Phone: Obstetrics/Gynecology Comment on above: PRAF Start: 06-01-2024 End: 06-01-2024 Patient encounter procedure Whi Tech 1 Mastic Sprayer [facility] Maternal Medicine Comment on above: Encounter for anatomic survey (HCC) (Primary Dx); 20 weeks gestation of (HCC) Supervision of other high risk pregnancies, second trimester (HCC) (Primary Dx); 20 weeks gestation of (HCC); History of shoulder dystocia in prior ; Rh negative state in antepartum period (HCC) Start: 06-01-2024 End: 06-01-2024 [facility] Facility:[facility] Start: 05-10-2024 End: 05-11-2024 Telephone encounter Prabhu Ortez MD Work Phone: OB/Gynecology Comment on above: Breast Pump RX Start: 05-04-2024 End: 05-04-2024 [facility] Facility:[facility] Start: 05-04-2024 End: 05-04-2024 Patient encounter procedure Jaquelin Hi APRN.CNM Work Phone: OB/Gynecology Comment on above: Supervision of other high risk pregnancies, second trimester (Primary Dx); 16 weeks gestation of ; Nausea and vomiting in ; History of cardiac radiofrequency ablation; History of pulmonary embolism; History of shoulder dystocia in prior ; Depression, unspecified depression type; Rh negative state in antepartum period Start: 04-07-2024 End: 04-07-2024 [facility] Facility:[facility] Start: 04-07-2024 End: 04-07-2024 Patient encounter procedure Whi Tech 1 Mastic Sprayer [facility] Maternal Medicine Comment on above: Encounter for antena lulu screening for malformation using ultrasound (Primary Dx); 13 weeks gestation of Supervision of other high risk pregnancies, second trimester (Primary Dx); 13 weeks gestation of ; Nausea and vomiting in ; History of cardiac radiofrequency ablation; History of pulmonary embolism; History of shoulder dystocia in prior ; History of depression; Rh negative state in antepartum period Start: 04-07-2024 End: 04-07-2024 ambulatory JAQUELIN HI Facility:[facility] Start: 03-16-2024 End: 03-16-2024 ambulatory JAQUELIN HI Facility:[facility] Start: 03-16-2024 End: 03-16-2024 Patient encounter procedure Jaquelin Hi APRN.CNM Work Phone: OB/Gynecology Comment on above: Supervision of other high risk pregnancies, first trimester (Primary Dx); History of pulmonary embolism; Nausea and vomiting in Start: 03-11-2024 End: 03-11-2024 Telephone encounter Chantelle Rodriguez RN Maternal Medic ine Comment on above: Material Handler - O ther (PRAF) Start: 03-10-2024 End: 03-10-2024 Emergency department patient visit RACHELL AMADOR Facility:[facility] Start: 03-09-2024 End: 03-09-2024 ambulatory JAQUELIN HI Facility:[facility] Start: 03-09-2024 End: 03-09-2024 Patient encounter procedure Jaquelin Sussy LATHAM.CNM Work Phone: OB/Gynecology Comment on above: with uncer tain dates, antepartum (Primary Dx); Screening for cervical cancer; Screening for human papillomavirus (HPV); Screening for STDs (sexually transmitted diseases); Depression, unspecified depression type; History of pulmonary embolism; Supervision of other high risk pregnancies, first trimester; History of shoulder dystocia in prior ; History of depression Start: 02-26-2024 End: 02-26-2024 ambulatory Rachell Amador APRN.DOCTOR ASSISTANT Work Phone: [facility] Comment on above: ER F/U ([facility] 02/18/2024) Start: 02-19-2024 End: 02-19-2024 ambulatory Mary Jo Barnett MD Work Phone: OB/Gynecology Comment on above: ED visit 02/18/24 Start: 02-18-2024 End: 02-18-2024 Emergency department patient visit RACHELL AMADOR [facility] Emergency Medicine Comment on above: Urinary tract infect ion in mother during first trimester of ([facility]) (Primary Dx); Hypoglycemia; Nausea vomiting and diarrhea Start: 01-27-2024 End: 01-27-2024 Office outpatient visit 25 minutes Ramiro Hugo MD Work Phone: [facility] [facility] 3 Comment on above: SVT (supraventricula r tachycardia) ([facility]) (Primary Dx); Atrial fibrillation, unspecified type (Multi); Palpitations Start: 01-27-2024 End: 01-27-2024 ambulatory [facility] Start: 12-26-2023 End: 12-26-2023 ambulatory RACHELL AMADOR Facility:[facility] Start: 12-26-2023 Encounter for genera l adult medical examination without abnormal findings RACHELL AMADOR [facility] Start: 12-26-2023 End: 12-26-2023 Patient encounter procedure Rachell Amador CHILD CAREGIVER PRIVATE HOME.DOCTOR ASSISTANT Work Phone: [facility] Comment on above: Well adult exam (Tania miki Dx); Paroxysmal SVT (supraventricular tachycardia) (HCC); Palpitations Start: 12-26-2023 End: 12-26-2023 Patient encounter status Rachell Amador CHILD CAREGIVER PRIVATE HOME.DOCTOR ASSISTANT Work Phone: [facility] Work Phone: Start: 12-10-2023 End: 12-10-2023 [facility] Start: 12-10-2023 End: 12-10-2023 Office outpatient visit 15 minutes Norbert Noriega MD Work Phone: [facility] Office Building Comment on above: Single subsegmental pulmonary embolism without acute cor pulmonale (Primary Dx); SVT (supraventricular tachycardia) ([facility]-H[facility]) Start: 11-24-2023 End: 11-24-2023 ambulatory SANDRA KELSEY Facility:[facility] Start: 11-24-2023 End: 11-24-2023 Patient encounter procedure Sandra Rupert CHILD CAREGIVER PRIVATE HOME.DOCTOR ASSISTANT Work Phone: OB/Gynecology Comment on above: Vaginal discharge (P rimary Dx) Start: 10-16-2023 End: 10-16-2023 ambulatory Faiza Mishra CHILD CAREGIVER PRIVATE HOME.DOCTOR ASSISTANT Work Phone: Gastroenterology Comment on above: Diarrhea due to usha bsorption (Primary Dx); Status post laparoscopic cholecystectomy Start: 10-16-2023 End: 10-16-2023 Telemedicine consultation with patient Faiza Pack CHILD CAREGIVER PRIVATE HOME.DOCTOR ASSISTANT Work Phone: Gastroenterology Start: 10-03-2023 End: 10-03-2023 Subsequent hospital visit by physician Ramiro Hugo MD Work Phone: [facility] Comment on above: SVT (supraventricula r tachycardia) ([facility]-HCC) (Primary Dx); Palpitations Start: 09-29-2023 End: 09-29-2023 ambulatory MARY JO BARNETT Facility:[facility] Start: 09-29-2023 End: 09-29-2023 Patient encounter procedure Conor Duarte MD Work Phone: General Surgery Comment on above: Status post laparosc opic cholecystectomy (Primary Dx); Functional diarrhea Start: 09-26-2023 End: 09-26-2023 ambulatory RACHELL [facility] Start: 09-23-2023 End: 09-23-2023 ambulatory [facility] Facility:[facility] Start: 09-23-2023 End: 09-23-2023 Patient encounter procedure Mary Jo Barnett MD Work Phone: OB/Gynecology Comment on above: Post-operative state (Primary Dx); Functional diarrhea Start: 09-18-2023 End: 09-18-2023 ambulatory BARBI TIAN Facility:[facility] Start: 09-18-2023 End: 09-18-2023 Patient encounter procedure Barbi Tian CHILD CAREGIVER PRIVATE HOME.DOCTOR ASSISTANT Work Phone: OB/Gynecology Comment on above: Post-op pain (Primar y Dx); Constipation, unspecified constipation type; Excessive bleeding in premenopausal period Start: 09-17-2023 ambulatory Mary Jo Barnett MD Work Phone: OB/Gynecology Comment on above: Incision sites Start: 09-16-2023 Telephone encounter Mary Jo Barnett MD Work Phone: OB/Gynecology Comment on above: Post Op Start: 09-15-2023 End: 09-15-2023 ambulatory [facility] Facility:[facility] Start: 09-12-2023 End: 09-12-2023 ambulatory MARY JO BARNETT Facility:[facility] Start: 09-12-2023 End: 09-12-2023 Patient encounter procedure Mary Jo Barnett MD Work Phone: OB/Gynecology Comment on above: Malpositioned intrau terine device (IUD), sequela (Primary Dx); Pre-op exam Start: 09-12-2023 End: 09-12-2023 Preprocedural examination done Mary Jo Barnett MD Work Phone: [facility] Start: 09-10-2023 Refill Sandra Cole APRN.DOCTOR ASSISTANT Work Phone: OB/Gynecology Comment on above: Med Change Request Start: 09-03-2023 End: 09-03-2023 ambulatory [facility] Start: 09-02-2023 Telephone encounter Joyce isaac PA-C Work Phone: Pre Anesthesia Comment on above: Preparations For José Miguel ember Start: 09-01-2023 Encounter for other preprocedural examination JAQUELIN SUSSY [facility] Start: 09-01-2023 End: 09-01-2023 PAT Pacc [place] 1 Work Phone: Pre Anesthesia Comment on above: Preoperative examina tion (Primary Dx); Single subsegmental pulmonary embolism without acute cor pulmonale (HCC); Vapes nicotine containing substance; Marijuana use; Generalized anxiety disorder; Depression, unspecified depression type; Paroxysmal SVT (supraventricular tachycardia) (HCC) Start: 09-01-2023 End: 09-01-2023 Preprocedural examination done Pacc [place] 1 Work Phone: [facility] Work Phone: Start: 08-26-2023 Telephone encounter Rachell Amador APRN.DOCTOR ASSISTANT Work Phone: [facility] Comment on above: Results Start: 08-25-2023 End: 08-25-2023 Subsequent hospital visit by physician Card/Pulm Lab [facility] CARDIO PULMONARY TESTING Comment on above: Paroxysmal SVT (supr aventricular tachycardia) (HCC) [I47.10] Start: 08-21-2023 End: 08-21-2023 Office outpatient new 60 minutes Ramiro Hugo MD Work Phone: [facility] Comment on above: Pulmonary embolism ( Multi) (Primary Dx); SVT (supraventricular tachycardia) (CMS-HCC); Palpitations Start: 08-21-2023 End: 08-21-2023 ambulatory [facility] Ambulatory Start: 08-20-2023 End: 08-20-2023 Subsequent hospital visit by physician Xr [facility] [place] [facility] Work Phone: Radiology Comment on above: Malpositioned IUD, s equela [T83.32XS] Start: 08-20-2023 End: 08-20-2023 Patient encounter procedure Mary Jo Barnett MD Work Phone: OB/Gynecology Comment on above: Pelvic pain in femal e (Primary Dx); Malpositioned IUD, sequela Start: 08-19-2023 End: 08-19-2023 Patient encounter procedure Sandra Cole CHILD CAREGIVER PRIVATE HOME.DOCTOR ASSISTANT Work Phone: OB/Gynecology Comment on above: Encounter for IUD re moval (Primary Dx); Malpositioned intrauterine device (IUD), initial encounter Start: 08-19-2023 End: 08-19-2023 ambulatory [facility] Mob OB/Gynecology Start: 08-19-2023 End: 08-19-2023 Patient encounter procedure i Tech 1 Mastic Sprayer [facility] Mob OB/Gynecology Start: 08-19-2023 Telephone encounter Sandra Sutherland marj CHILD CAREGIVER PRIVATE HOME.DOCTOR ASSISTANT Work Phone: OB/Gynecology Comment on above: Results Start: 08-18-2023 End: 08-18-2023 Patient encounter procedure Sandra Cole CHILD CAREGIVER PRIVATE HOME.DOCTOR ASSISTANT Work Phone: OB/Gynecology Comment on above: Pelvic pain in femal e (Primary Dx); Intrauterine contraceptive device threads lost, initial encounter; Irregular bleeding Start: 08-17-2023 Refill Rachell Maloney en CHILD CAREGIVER PRIVATE HOME.DOCTOR ASSISTANT Work Phone: [facility] Comment on above: Refill Request Start: 08-07-2023 Refill Dipti Freed DO Work Phone: Psychiatry Comment on above: Med Change Request Start: 07-31-2023 End: 07-31-2023 Patient encounter procedure Rachell Amador CHILD CAREGIVER PRIVATE HOME.DOCTOR ASSISTANT Work Phone: [facility] Comment on above: Paroxysmal SVT (supr aventricular tachycardia) (HCC) (Primary Dx); Palpitations; Single subsegmental pulmonary embolism without acute cor pulmonale (HCC); On continuous oral anticoagulation; Engages in vaping Start: 07-24-2023 End: 07-24-2023 Patient encounter procedure Gino Valero CHILD CAREGIVER PRIVATE HOME.CNM Work Phone: OB/Gynecology Comment on above: Surveillance of prev iously prescribed intrauterine contraceptive device (Primary Dx) Start: 07-15-2023 End: 07-15-2023 Patient encounter procedure Chantelle Low PA-C Work Phone: Pulmonary Medicine Comment on above: Vaping nicotine depe ndence, non-tobacco product (Primary Dx) Start: 07-14-2023 End: 07-14-2023 [facility] Dipti Freed DO Work Phone: Psychiatry Comment on above: Panic disorder witho ut agoraphobia (Primary Dx); anxiety Start: 07-09-2023 End: 07-09-2023 ambulatory [facility] Start: 07-09-2023 End: 07-09-2023 Subsequent hospital visit by physician Tylor Edwards 1 [facility] Comment on above: Single subsegmental pulmonary embolism without acute cor pulmonale (Multi); Other pulmonary embolism without acute cor pulmonale (Multi) Palpitations Start: 07-08-2023 End: 07-08-2023 Postop follow up visit related to original px Alla Llanes MD Work Phone: [facility] Comment on above: Postoperative visit (Primary Dx) Start: 07-04-2023 Refill Dipti Freed DO Work Phone: Psychiatry Comment on above: Med Change Request Start: 07-02-2023 End: 07-02-2023 Patient encounter procedure Mitra Reed APRN.DOCTOR ASSISTANT Work Phone: [facility] Comment on above: Nausea and vomiting, unspecified vomiting type (Primary Dx); S/P cholecystectomy; Single subsegmental pulmonary embolism without acute cor pulmonale (HCC); Vapes nicotine containing substance Start: 07-02-2023 End: 07-02-2023 ambulatory [facility] Start: 07-02-2023 End: 07-02-2023 Office outpatient new 60 minutes Miki Jaramillo MD Work Phone: [facility] Office Building [facility] Comment on above: Single subsegmental pulmonary embolism without acute cor pulmonale (Multi) Start: 06-26-2023 End: 06-26-2023 Patient encounter procedure Prabhu Ortez MD Work Phone: OB/Gynecology Comment on above: Abnormal uterine ble eding (AUB) (Primary Dx); Encounter for IUD insertion Start: 06-25-2023 End: 06-25-2023 Office outpatient new 45 minutes Norbert Noriega MD Work Phone: [facility] Office Building Comment on above: Palpitations (Primar y Dx); Single subsegmental pulmonary embolism without acute cor pulmonale (Multi); Smoking addiction Start: 06-24-2023 End: 06-24-2023 Emergency department patient visit RACHELL AMADOR [facility] Emergency Medicine Comment on above: Dysfunctional uterin e bleeding (Primary Dx); Post-op pain Start: 06-24-2023 ambulatory Lillian Rocha LPN [facility] Comment on above: Patient Update Start: 06-24-2023 Patient encounter procedure Eugene Louie RN NURSE IRONER OR PRESSER Comment on above: Clinical Update Start: 06-24-2023 Telephone encounter Prabhu brizuela MD Work Phone: OB/Gynecology Comment on above: Heavy Bleeding Start: 06-22-2023 End: 06-22-2023 Emergency department patient visit RACHELL AMADOR Facility:[facility] Start: 06-22-2023 End: 06-22-2023 Emergency department patient visit [facility] Work Phone: Start: 06-21-2023 End: 06-21-2023 Subsequent hospital visit by physician Tylor Suv1 [employer] [facility] Comment on above: Arrived Start: 06-21-2023 End: 06-21-2023 ambulatory [facility] Start: 06-21-2023 End: 06-21-2023 Emergency department patient visit Saturnino Velázquez DO Work Phone: [facility] Emergency Medicine Comment on above: Single subsegmental pulmonary embolism without acute cor pulmonale (Multi) (Primary Dx) Start: 06-19-2023 End: 06-20-2023 Evaluation and management of inpatient Saturnino Isaac Mahamedhenrique DO Work Phone: [facility] 3 Comment on above: Acute post-operative pain (Primary Dx); Status post cholecystectomy; Vomiting and diarrhea Start: 06-18-2023 End: 06-18-2023 Emergency department patient visit Saturnino Gordy Mahamedhenrique DO Work Phone: [facility] Emergency Medicine Comment on above: Postoperative pain ( Primary Dx) Start: 06-17-2023 End: 06-17-2023 Subsequent hospital visit by physician Alla Llanes MD Work Phone: [facility] [place] Comment on above: Post-operative pain (Primary Dx); Symptomatic cholelithiasis Start: 06-12-2023 End: 06-12-2023 [facility] Dipti Freed DO Work Phone: Psychiatry Comment on above: Post depressi on (Primary Dx); Panic disorder without agoraphobia; PTSD (post-traumatic stress disorder) Start: 06-05-2023 Refill Dipti Freed DO Work Phone: Psychiatry Comment on above: Med Change Request Start: 06-04-2023 ambulatory [facility] LLANES [facility] Start: 06-03-2023 End: 06-03-2023 Office outpatient visit 25 minutes Alla Llanes MD Work Phone: [facility] Comment on above: Symptomatic cholelit hiasis (Primary Dx) Start: 06-03-2023 End: 06-03-2023 Patient encounter procedure Rachellsagar Amador CHILD CAREGIVER PRIVATE HOME.DOCTOR ASSISTANT Work Phone: [facility] Comment on above: Pain in the coccyx ( Primary Dx); Tailbone injury, initial encounter; Depression, unspecified depression type; Generalized anxiety disorder Start: 05-13-2023 End: 05-13-2023 [facility] Dipti Freed DO Work Phone: Psychiatry Comment on above: Panic disorder witho ut agoraphobia (Primary Dx); Episode of recurrent major depressive disorder, unspecified depression episode severity (HCC); Anxiety; PTSD (post-traumatic stress disorder); Post depression Start: 04-23-2023 End: 04-23-2023 Patient encounter procedure Gino Valero APRN.CNM Work Phone: OB/Gynecology Comment on above: Spotting (Primary Dx ); Breakthrough bleeding on depo provera; Episode of recurrent major depressive disorder, unspecified depression episode severity (HCC); Anxiety; PTSD (post-traumatic stress disorder); Post depression Start: 03-10-2023 Telephone encounter Mary Jo Barnett MD Work Phone: OB/Gynecology Comment on above: AUB Start: 01-30-2023 End: 01-30-2023 Patient encounter procedure Prabhu Ortez MD Work Phone: OB/Gynecology Comment on above: Routine f ollow-up (Primary Dx); care and examination Start: 12-16-2022 ambulatory Jaquelin Hi [employer]ILD CAREGIVER [employer]IVATE HOME.CNM Work Phone: OB/Gynecology Comment on above: Ob Delivery Note Start: 12-13-2022 ambulatory [facility] [place] Comment on above: Population Health Na vigation Outreach (Peds/OB) Start: 12-03-2022 End: 12-03-2022 Patient encounter procedure Prabhu Ortez MD Work Phone: OB/Gynecology Comment on above: Encounter for superv ision of normal first in third trimester (Primary Dx); 36 weeks gestation of Start: 11-25-2022 Telephone encounter Material Handler RN Obstetrics/Gynecology Comment on above: PRAF Start: 11-19-2022 End: 11-19-2022 Patient encounter procedure Prabhu Ortez MD Work Phone: OB/Gynecology Comment on above: care, subse quent in third trimester (Primary Dx); 34 weeks gestation of Start: 11-18-2022 End: 11-18-2022 Patient encounter procedure Jaquelin Hi APRN.CNM Work Phone: OB/Gynecology Comment on above: with prena lulu care elsewhere in third trimester (Primary Dx); 34 weeks gestation of Start: 10-24-2022 Telephone encounter Lianet chacon APRN.DOCTOR ASSISTANT Work Phone: Obstetrics/Gynecology Comment on above: Forms (praf) Start: 10-10-2022 ambulatory Lianet Heller APRN.DOCTOR ASSISTANT Work Phone: OB/Gynecology Comment on above: [facility] Start: 10-09-2022 End: 10-09-2022 ambulatory [facility] Work Phone: Start: 10-09-2022 End: 10-09-2022 Patient encounter procedure [facility] veneer jointer returner Off Start: 09-24-2022 End: 09-24-2022 ambulatory [facility] Work Phone: Start: 09-24-2022 End: 09-24-2022 Patient encounter procedure [facility] veneer jointer returner Off Start: 08-29-2022 End: 08-29-2022 Emergency department patient visit [facility] Work Phone: Start: 08-17-2022 End: 08-17-2022 Emergency department patient visit [facility] Work Phone: Start: 07-12-2022 End: 07-12-2022 Emergency department patient visit Mauricio Reyes [facility] Emergency 06 Start: 05-24-2022 End: 05-24-[address] [facility] [place] [facility]inter return[facility] Off Start: 04-19-2022 End: 04-19-2022 ambulatory [facility] Work Phone: Start: 04-19-2022 End: 04-19-[address] [facility] [place] [facility] jointer returner Off Start: 02-07-2022 End: 02-07-2022 ambulatory [facility] Work Phone: [facility] Work Phone: Start: 02-07-2022 End: 02-07-2022 Patient encounter procedure [facility] Work Phone: [facility] [place] veneer jointer returner Off Start: 12-12-2021 End: 12-12-2021 ambulatory [facility] Work Phone: Start: 12-12-2021 End: 12-12-[address] [facility] [place] [facility] jointer returner Off Start: 12-05-2021 End: 12-05-2021 ambulatory [facility] Work Phone: Start: 12-05-2021 End: 12-05-2021 Patient encounter procedure [facility]-Pulmonary Services/Neurology Start: 12-05-2021 Non-patient / Non-visit [facility] Work Phone: [facility] Start: 12-01-2021 End: 12-01-2021 ambulatory [facility] Work Phone: Start: 12-01-2021 End: 12-01-[address] [facility] Start: 11-12-2021 End: 11-12-2021 Patient encounter procedure Leeann Silva FINNDOCTOR ASSISTANT Work Phone: [facility] Comment on above: Burning with urinati on (Primary Dx); Exposure to HIV; Acute vaginitis Start: 10-31-2021 End: 10-31-2021 ambulatory [facility] Work Phone: Start: 10-31-2021 End: 10-31-2021 Patient encounter procedure [facility] [place] veneer jointer returner Off Start: 08-14-2021 End: 08-14-2021 Patient encounter procedure Steven Rojas APRN.DOCTOR ASSISTANT Work Phone: [facility] Comment on above: Screening for STD (s exually transmitted disease) (Primary Dx) Start: 05-24-2021 End: 05-24-[address] [facility] [place] [facility] jointer returner Off Start: 05-17-2021 End: 05-17-[address] [facility] [place] [facility] jointer returner Off Start: 03-21-2021 End: 03-21-2021 Emergency department patient visit Tatyanamaurice Michaels [facility] Emergency 05 Start: 08-07-2017 Ambulatory KRISTEL Jesusita [facility] Start: 07-30-2017 Ambulatory KRISTEL Jesusita COH[facility] Start: 07-29-2017 Ambulatory KRISTEL Jesusita COHEN [facility] Start: 07-24-2017 Ambulatory KRISTEL J NOEL [facility] Start: 07-11-2017 Ambulatory KRISTEL J NOEL [facility] Start: 07-10-2017 Ambulatory KRISTEL J NOEL [facility] Start: 07-01-2017 End: 07-01-2017 Ambulatory [facility] Start: 06-19-2017 Ambulatory KRISTEL Jesusita COHEN [facility] Start: 06-03-2017 Ambulatory KRISTEL Jesusita COHEN [facility] Start: 05-01-2017 Ambulatory KRISTEL Jesusita COHEN [facility] Start: 04-15-2017 Ambulatory KRISTEL J NOEL [facility] Start: 04-08-2017 Ambulatory KRISTEL J NOEL [facility] Start: 03-10-2017 End: 03-11-2017 Emergency department patient visit ORI Olivia COBURN [facility] Start: 02-27-2017 Ambulatory KRISTEL Jesusita COHEN [facility] Start: 02-27-2017 Ambulatory KRISTEL Jesusita COHEN [facility] Start: 01-15-2017 Ambulatory KRISTEL J [facility] Start: 12-30-2016 End: 12-31-2016 Emergency department patient visit KRISTEL COHEN [facility] Start: 11-19-2016 End: 11-19-2016 Emergency department patient visit Jessica Miranda Facility:[place] Start: 09-13-2016 End: 09-13-2016 Emergency department patient visit MEGAN Carr MARIANGEL [facility] Procedures Date Procedure Procedure Detail Performing Clinician Start: 08-03-2024 Estimated creatinine clearance Rachell Amador PROFESSOR OF ENVIRONMENTAL SCIENCE-C Work Phone: Start: 08-03-2024 Measurement of pH in vaginal fluid specimen using nitrazine yellow for detection of rupture of amniotic membrane Rachell Amador PROFESSOR OF ENVIRONMENTAL SCIENCE-C Work Phone: Comment on above: Amniotic fluid not present indicates No Rupture of FetalMembranes at time of specimen collection. Start: 08-03-2024 Ecg routine ecg w/least 12 lds w/i&r Ramiro Hugo MD Work Phone: Start: 07-27-2024 Antibody screen JAQUELIN HI Comment on above: Order Comment: Specimen Type: BLOOD SPEC IMENOrdering Facility: [facility] Address: [address] [place] [address] Performed By: #### T SPN ####[facility] BLOOD BANKCLIA [id number] [place] [id number] [place] Start: 06-01-2024 Us preg uterus after 1st trimest / gestation Jaquelin Hi CHILD C[employer]GIVER [employer].CNM Work Phone: Start: 04-07-2024 Us preg uterus after 1st trimest /1st gestation Jaquelin Hi CHILD C[employer].CNM Work Phone: Start: 04-07-2024 Antibody screen JAQUELIN HI Comment on above: Order Comment: Specimen Type: BLOOD SPEC IMEN Ordering Facility: [facility] Address: [address] [place] [address] Performed By: #### 2 [id number] #### [facility] CLIA [id number] [address] [place] [id number] [place] Start: 03-09-2024 BACTERIAL VAGINOSIS NAAT Jaquelin DENNISCNM Work Phone: Start: 03-09-2024 Iadna chlamydia trachomatis amplified probe tq Jaquelin Hi APRN.CNM Work Phone: Start: 03-09-2024 Us uterus limited 1/> fetuses Jaquelin Hi APRN.CNM Work Phone: Start: 03-09-2024 Microscopic observation [Identifier] in Cervix by Cyto stain Ramiro Hugo MD Work Phone: Start: 02-18-2024 Glucose quantitative blood xcpt reagent strip Interface Unspecifiedprovider Work Phone: Start: 02-18-2024 Glucose quantitative blood xcpt reagent strip Interface Unspecifiedprovider Work Phone: Start: 02-18-2024 Us preg uterus real time w/image dcmtn transvag Eugene Mccormick CHILD CAREGIVER [employer]IVATE HOME-DOCTOR ASSISTANT Work Phone: Start: 02-18-2024 Blood typing serologic rh (d) Eugene Delgadoderkyle CHILD CAREGIVER [employer]IVATE HOME-DOCTOR ASSISTANT Work Phone: Start: 02-18-2024 Comprehensive metabolic panel Eugene Mccormick CHILD CAREGIVER [employer]IVATE HOME-DOCTOR ASSISTANT Work Phone: Start: 02-18-2024 Urinalysis microscopic panel - Urine Qualitative by Automated Eugene Mccormick CHILD CAREGIVER [employer] HOME-DOCTOR ASSISTANT Work Phone: Start: 02-18-2024 Urine test visual color cmprsn meths Eugene Mccormick CHILD CAREGIVER [employer]-DOCTOR ASSISTANT Work Phone: Start: 02-18-2024 Urnls dip stick/tablet reagent auto microscopy Eugene Mccormick CHILD CAREGIVER [employer]-DOCTOR ASSISTANT Work Phone: Start: 01-27-2024 Ecg routine ecg w/least 12 lds trcg only w/o i&r Ramiro Hugo MD Work Phone: Start: 10-03-2023 Glucose quantitative blood xcpt reagent strip Ramiro Hugo MD Work Phone: Start: 10-03-2023 PULSE OXIMETRY, CONTINUOUS Bishnu Ross MD Work Phone: Start: 10-03-2023 Electrophysiology study Ramiro Hugo MD Work Phone: Start: 10-03-2023 Ecg routine ecg w/least 12 lds trcg only w/o i&r Ida Hutson CHILD CAREGIVER [employer]IVATE HOME-DOCTOR ASSISTANT Work Phone: Start: 08-21-2023 Ecg routine ecg w/least 12 lds w/i&r Ramiro Hugo MD Work Phone: Start: 08-20-2023 UA DIP,URINE HCG (POC) Mary Jo Eastman MD Work Phone: Start: 08-19-2023 Us pelvic nonobstetric real-time image complete Sandra Kelsey CHILD CAREGIVER [employer]IVATE HOME.DOCTOR ASSISTANT Work Phone: Start: 07-09-2023 Dup-scan xtr veins complete bilateral study Norbert Noriega MD Work Phone: Start: 06-26-2023 Iadna chlamydia trachomatis amplified probe tq Prabhu Ortez MD Work Phone: Start: 06-24-2023 Bacteria identified in Urine by Culture ALLA SIPPEY Start: 06-24-2023 EXTRA URINE EMERSON TUBE ALLA SIPPEY Start: 06-24-2023 URINALYSIS MICROSCOPIC WITH REFLEX CULTURE ALLA SIPPEY Start: 06-24-2023 URINALYSIS WITH REFLEX CULTURE AND MICROSCOPIC ALLA SIPPEY Start: 06-24-2023 CT ABDOMEN PELVIS W IV CONTRAST ALLA SIPPEY Start: 06-24-2023 CBC panel - Blood by Automated count ALLA SIPPEY Start: 06-24-2023 Comprehensive metabolic 2000 panel - Serum or Plasma ALLA SIPPEY Start: 06-24-2023 HUMAN CHORIONIC GONADOTROPIN, SERUM QUANTITATIVE ALLA SIPPEY Start: 06-24-2023 PROTIME-INR [facility]A SIPPEY Start: 06-24-2023 Urinalysis complete W Reflex Culture panel - Urine Megan Berg PA-C Work Phone: Start: 06-24-2023 Urnls dip stick/tablet reagent auto microscopy Megan Berg PA-C Work Phone: Start: 06-24-2023 Ct abdomen & pelvis w/contrast material Megan Berg PA-C Work Phone: Start: 06-24-2023 Comprehensive metabolic panel Megan Berg PA-C Work Phone: Start: 06-21-2023 ECG 12-LEAD ALLA SIPPEY Start: 06-21-2023 CT ANGIO CHEST FOR PULMONARY EMBOLISM ALLA SIPPEY Start: 06-21-2023 CBC W Auto Differential panel - Blood ALLA SIPPEY Start: 06-21-2023 Comprehensive metabolic 2000 panel - Serum or Plasma ALLA SIPPEY Start: 06-21-2023 TROPONIN I, HIGH SENSITIVITY ALLA SIPPEY Start: 06-21-2023 INSERT PERIPHERAL IV ALLA SIPPEY Start: 06-21-2023 Ecg routine ecg w/least 12 lds trcg only w/o i&r Saturnino Velázquez DO Work Phone: Start: 06-21-2023 Ct angiography chest w/contrast/noncontrast Saturnino Velázquez DO Work Phone: Start: 06-21-2023 Comprehensive metabolic panel Saturnino Velázquez DO Work Phone: Start: 06-20-2023 DISCHARGE PATIENT ALLA SIPPEY Start: 06-20-2023 ADULT DISCHARGE DIET ALLA SIPPEY Start: 06-20-2023 DISCHARGE ACTIVITY ALLA SIPPEY Start: 06-20-2023 NOTIFY PROVIDER (DO NOT PROMPT FOR PARAMETERS) ALLA SIPPEY Start: 06-20-2023 NM HEPATOBILIARY ALLA SIPPEY Start: 06-20-2023 CBC panel - Blood by Automated count ALLA SIPPEY Start: 06-20-2023 Basic metabolic 2000 panel - Serum or Plasma ALLA SIPPEY Start: 06-20-2023 Hepatobil syst imag inc gb w/pharma intervenj Alla Llanes MD Work Phone: Start: 06-20-2023 End: 06-20-2023 Basic metabolic panel calcium total Bora Benites MD Work Phone: Start: 06-20-2023 FULL CODE ALLA SIPPEY Start: 06-20-2023 MEASURE HEIGHT ALLA SIPPEY Start: 06-20-2023 REASON FOR NO VTE PROPHYLAXIS AT ADMISSION ALLA SIPPEY Start: 06-20-2023 WEIGH PATIENT ALLA SIPPEY Start: 06-20-2023 IP CONSULT TO NUTRITION SERVICES ALLA SIPPEY Start: 06-20-2023 ADMIT TO INPATIENT ALLA SIPPEY Start: 06-20-2023 MEASURE HEIGHT ALLA SIPPEY Start: 06-20-2023 NURSING COMMUNICATION ALLA SIPPEY Start: 06-20-2023 WEIGH PATIENT ALLA SIPPEY Start: 06-19-2023 ED TO FLOOR BED REQUEST ALLA SIPPEY Start: 06-19-2023 C. DIFFICILE, PCR ALLA SIPPEY Start: 06-19-2023 STOOL PATHOGEN PANEL, PCR ALLA SIPPEY Start: 06-19-2023 CT ABDOMEN PELVIS W IV CONTRAST ALLA SIPPEY Start: 06-19-2023 EXTRA URINE EMERSON TUBE ALLA SIPPEY Start: 06-19-2023 HCG, URINE, QUALITATIVE ALLA SIPPEY Start: 06-19-2023 URINALYSIS MICROSCOPIC WITH REFLEX CULTURE ALLA SIPPEY Start: 06-19-2023 URINALYSIS WITH REFLEX CULTURE AND MICROSCOPIC ALLA SIPPEY Start: 06-19-2023 Ct abdomen & pelvis w/contrast material Eugene Carcamo PA-C Work Phone: Start: 06-19-2023 Basic metabolic 2000 panel - Serum or Plasma ALLA SIPPEY Start: 06-19-2023 CBC W Auto Differential panel - Blood ALLA SIPPEY Start: 06-19-2023 Hepatic function 2000 panel - Serum or Plasma ALLA SIPPEY Start: 06-19-2023 Lactate [Moles/volume] in Serum or Plasma ALLA SIPPEY Start: 06-19-2023 Lipase [Enzymatic activity/volume] in Serum or Plasma ALLA SIPPEY Start: 06-19-2023 EXTRA URINE EMERSON TUBE Eugene DUFF-C Work Phone: Start: 06-19-2023 Urinalysis complete W Reflex Culture panel - Urine Eugene Carcamo PA-C Work Phone: Start: 06-19-2023 Urine test visual color cmprsn meths Eugene Carcamo PA-C Work Phone: Start: 06-19-2023 Urnls dip stick/tablet reagent auto microscopy Eugene Carcamo PA-C Work Phone: Start: 06-19-2023 Basic metabolic panel calcium total Eugene DUFF-C Work Phone: Start: 06-18-2023 CBC W Auto Differential panel - Blood ALLA SIPPEY Start: 06-18-2023 Comprehensive metabolic 2000 panel - Serum or Plasma ALLA SIPPEY Start: 06-18-2023 Lipase [Enzymatic activity/volume] in Serum or Plasma ALLA SIPPEY Start: 06-18-2023 EXTRA URINE EMERSON TUBE ALLA SIPPEY Start: 06-18-2023 URINALYSIS WITH REFLEX CULTURE AND MICROSCOPIC ALLA SIPPEY Start: 06-18-2023 Comprehensive metabolic panel Saturnino Velázquez DO Work Phone: Start: 06-18-2023 Urnls dip stick/tablet rgnt auto w/o microscopy Saturnino Velázquez DO Work Phone: Start: 06-17-2023 PULSE OXIMETRY, CONTINUOUS Malia Ennis MD Work Phone: Start: 06-17-2023 PULSE OXIMETRY, SPOT Alla Llanes MD Work Phone: Start: 12-03-2022 URINE OB DIP B/O Prabhu Ortez MD Work Phone: Start: 11-19-2022 URINE OB DIP B/O Prabhu Ortez MD Work Phone: Start: 11-18-2022 URINE OB DIP B/O Jaquelin Hi CHILD CAREGIVER PRIVATE HOME.C NM Work Phone: Start: 09-24-2022 CBC panel - Blood by Automated count [facility] Provider Start: 09-24-2022 GEST GLUC SCREEN, 1-HR, 50 GM, NON-FASTING [facility] Provider Start: 09-24-2022 SYPHILIS TOTAL W/REFLEX [facility] Provider Start: 08-29-2022 US scan of gallbladder Start: 08-17-2022 US scan of gallbladder Start: 05-24-2022 GONORRHEA/CHLAMYDIA NAAT [facility] Provider Start: 05-24-2022 HEP B SURF AG SCRN [facility] Provider Start: 05-24-2022 HEPATITIS C ANTIBODY IA WITH CONFIRMATION [facility] Provider Start: 05-24-2022 HIV 1 2 COMBO(AG/AB),WITH REFLEX TO DIFFERENTIATION [facility] Provider Start: 05-24-2022 HIV COMBO (AC) [facility] Provider Start: 05-24-2022 RUBELLA IGG AB [facility] Provider Start: 05-24-2022 SYPHILIS TOTAL W/REFLEX [facility] Provider Start: 05-24-2022 Urine culture Start: 11-12-2021 Urnls dip stick/tablet rgnt auto w/o microscopy Leeann Ascencio CHILD CAREGIVER PRIVATE HOME.DOCTOR ASSISTANT Work Phone: Start: 08-14-2021 End: 08-14-2021 Urnls dip stick/tablet rgnt auto w/o microscopy Steven Rojas APRN.DOCTOR ASSISTANT Work Phone: Start: 08-21-2018 Adult depression screening assessment Steven Rojas APRN.DOCTOR ASSISTANT Work Phone: History of cholecystectomy Status post cholecystectomy Saturnino Velázquez DO Work Phone: History of cholecystectomy S/P cholecystectomy Mitra Reed CHILD CAREGIVER PRIVATE HOME.DOCTOR ASSISTANT Work Phone: History of cholecystectomy Status post laparoscopic cholecystectomy Conor Duarte MD Work Phone: History of cholecystectomy Status post laparoscopic cholecystectomy Faiza Mishra APRN.DOCTOR ASSISTANT Work Phone: History of cholecystectomy Status post laparoscopic cholecystectomy Rachell Amador PROFESSOR OF ENVIRONMENTAL SCIENCE-C Work Phone: Plan of Treatment Date Care Activity Detail Author Start: 2077 RSV High Risk: (Elderly (60+) or Population) (1 - 1-dose 75+ series) RSV High Risk: (Elderly (60+) or Population) (1 - 1-dose 75+ series) [facility] Start: 2052 Zoster Vaccines (1 of 2) Zoster Vaccines (1 of 2) [facility] Start: 07-27-2034 DTaP/Tdap/Td Vaccines (11 - Td or Tdap) DTaP/Tdap/Td Vaccines (11 - Td or Tdap) [facility] Start: 07-27-2034 Urine microalbumin profile DTaP,Tdap,Td Vaccine (11 - Td or Tdap) [facility] Start: 11-05-2032 DTaP/Tdap/Td Vaccines (10 - Td or Tdap) DTaP/Tdap/Td Vaccines (10 - Td or Tdap) [facility] Start: 11-05-2032 Urine microalbumin profile [facility] Start: 07-11-2027 Urine microalbumin profile [facility] Start: 03-09-2027 Screening for malignant neoplasm of cervix [facility] Start: 04-07-2025 Diabetes mellitus screening Diabetes Screening [facility] Start: 03-09-2025 GC (Gonorrhea) Screening (18-24) GC (Gonorrhea) Screening (18-24) [facility] Start: 03-09-2025 Screening for Chlamydia trachomatis Chlamydia Screening (18-24) [facility] Start: 02-17-2025 Diabetes mellitus screening Diabetes Screening [facility] Start: 12-25-2024 Meningococcal B Vaccine (1 of 2 - Standard) Meningococcal B Vaccine (1 of 2 - Standard) [facility] Comment on above: Postponed from 2018 (Declined at t his time) Start: 12-25-2024 Meningococcal B Vaccine: Consider Based On Risk (1 of 2 - Patient Seeks Protection) Meningococcal B Vaccine: Consider Based On Risk (1 of 2 - Patient Seeks Protection) [facility] Comment on above: Postponed from 2018 (Declined at t his time) Start: 11-23-2024 End: 11-23-2024 Patient encounter procedure 11/23/2024 3:30 PM EDT Office Visit [facility] Building [address] [place] [address] Ramiro Hugo MD [address] [facility] [address] [place] [address] [facility] Office [facility] Start: 11-23-2024 GC (Gonorrhea) Screening (18-24) GC (Gonorrhea) Screening (18-24) [facility] Start: 11-23-2024 Screening for Chlamydia trachomatis Chlamydia Screening (18-) [facility] Start: 10-14-2024 End: 10-14-2024 Patient encounter procedure 10/14/2024 9:20 AM EDT Office Visit OB/Gynecology [address] [place], [place] [id number] Yamila Ballard MD [address] [place], [place] [id number] 1 week incision check OB/Gynecology Comment on above: 1 week incision check Start: 10-11-2024 Influenza vaccination [facility] Start: 10-02-2024 Diabetes mellitus screening Diabetes Screening [facility] Start: 2024 End: 2024 Patient encounter procedure 2024 10:10 AM EDT Routine Office Visit OB/Gynecology [address] [place] [address] Yamila Ballard MD [address] [place], [place] [id number] OB Pre Op C/S 10/07 @ [facility] OB/Gynecology Comment on above: OB Pre Op C/S 10/07 @ [facility] Start: 09-16-2024 End: 09-16-2024 Follow-up encounter 09/16/2024 11:00 AM EDT [facility] BLOOD MANAGEMENT [address] [place] [address] Nayely Gil PA-C [address] [facility] [place], [place] [id number] 6 week follow-up BLOOD MANAGEMENT Comment on above: 6 week follow-up Start: 09-13-2024 End: 12-13-2024 CBC W Auto Differential panel - Blood COMPLETE BLOOD COUNT AND DIFFERENTIAL Lab Routine Maternal iron deficiency anemia complicating , third trimester (HCC) Expected: 09/13/2024 (Approximate), Expires: 12/13/2024 [facility] Work Phone: Comment on above: Expected: 09/13/2024 (Approximate), Expi res: 12/13/2024 Start: 09-13-2024 End: 12-13-2024 Ferritin [Mass/volume] in Serum or Plasma FERRITIN Lab Routine Maternal iron deficiency anemia complicating , third trimester (HCC) Expected: 09/13/2024 (Approximate), Expires: 12/13/2024 [facility] Comment on above: Expected: 09/13/2024 (Approximate), Expi res: 12/13/2024 Start: 09-13-2024 End: 12-13-2024 Iron and Iron binding capacity panel - Serum or Plasma IRON AND TIBC Lab Routine Maternal iron deficiency anemia complicating , third trimester (HCC) Expected: 09/13/2024 (Approximate), Expires: 12/13/2024 [facility] Comment on above: Expected: 09/13/2024 (Approximate), Expi res: 12/13/2024 Start: 09-13-2024 End: 09-13-2024 ambulatory 09/13/2024 12:00 PM EDT Results Only [facility] Draw Station [address] [place] [id number] [facility] Start: 09-07-2024 End: 09-07-2024 Patient encounter procedure 09/07/2024 2:30 PM EDT Routine Office Visit OB/Gynecology [address] [place] [id number] Chantelle Mann MD [address] [place] [address] Growth/OB OB/Gynecology Comment on above: Growth/OB Start: 09-07-2024 End: 09-07-2024 Patient encounter procedure OB/Gynecology Comment on above: OB Growth Start: 09-04-2024 End: 09-04-2024 ambulatory 09/04/2024 11:30 AM EDT Results Only [facility] Station [address] [place] [address] [facility] Start: 08-24-2024 End: 08-24-2025 OBSTETRIC ULTRASOUND WHI OBSTETRIC ULTRASOUND [facility]I Anc Imaging Routine History of shoulder dystocia in prior Expected: 08/24/2024, Expires: 08/24/2025 [facility] Work Phone: Comment on above: Expected: 08/24/2024, Expires: Start: 08-24-2024 End: 08-24-2024 ambulatory 08/24/2024 1:30 PM EDT Infusion [facility] [address] [place] [address] Louise Muñoz AJ INFUSION Comment on above: Louise Muñoz AJ Start: 08-24-2024 End: 08-24-2024 Patient encounter procedure 08/24/2024 10:30 AM EDT Routine Office Visit OB/Gynecology [address] [place] [id number] Prabhu Ortez MD [address] [place] [address] OB OB/Gynecology Comment on above: OB Start: 08-20-2024 End: 08-20-2024 ambulatory 08/20/2024 2:30 PM EDT Infusion Center [facility] [address] [place] [address] Louise Muñoz AJ INFUSION Comment on above: Louise Muñoz AJ Start: 08-17-2024 End: 08-17-2024 ambulatory 08/17/2024 2:30 PM EDT Infusion Center [facility] [address] [place] [address] Louise Muñoz AJ INFUSION Comment on above: Louise Muñoz AJ Start: 08-17-2024 GC (Gonorrhea) Screening (18-24) GC (Gonorrhea) Screening (18-24) [facility] Start: 08-17-2024 Screening for Chlamydia trachomatis Chlamydia Screening (18-) [facility] Start: 08-12-2024 End: 08-12-2024 ambulatory 08/12/2024 2:30 PM EDT Infusion Center [facility] [address] [place] [address] Louise Muñoz AJ INFUSION Comment on above: Louise Muñoz AJ Start: 08-10-2024 End: 08-10-2024 Patient encounter procedure 08/10/2024 11:20 AM EDT Routine Office Visit OB/Gynecology [address] [place], [place] [address] Prabhu Ortez MD [address] [place], [place] [id number] OB OB/Gynecology Comment on above: OB Start: 08-09-2024 Influenza vaccination Influenza Vaccine (#1) [facility] [facility] Comment on above: Postponed from 10/12/2023 (Declined at t his time) Start: 08-05-2024 End: 08-05-2024 Patient encounter procedure 08/05/2024 11:00 AM EDT [facility] BLOOD MANAGEMENT [address] [place] [address] Nayely Gil PA-C [address] [place] [address] new anemia BLOOD MANAGEMENT Comment on above: new anemia Start: 08-03-2024 Nonstress test [facility] Start: 08-03-2024 Obstetric monitoring [facility] Start: 08-03-2024 Vital signs measurements [facility] Start: 08-03-2024 [facility] Start: 08-03-2024 End: 08-03-2024 Patient encounter procedure 08/03/2024 11:45 AM EDT Office Visit [facility] Medical Office Building [address] [place] [address] 2nd [place] [address] Ramiro Hugo MD [address] [facility] 3, [facility] [address] [place] [address] [facility] Start: 08-03-2024 Patient discharge [facility] Start: 06-29-2024 End: 06-29-2024 Patient encounter procedure 06/29/2024 1:15 PM EDT Routine Office Visit OB/Gynecology [address] [place] [address] Jaquelin Hi APRN.CNM [address] [place] [address] OB OB/Gynecology Comment on above: OB Start: 06-25-2024 GC (Gonorrhea) Screening (18-24) GC (Gonorrhea) Screening (18-24) [facility] Start: 06-25-2024 Screening for Chlamydia trachomatis Chlamydia Screening (18) [facility] Start: 06-01-2024 End: 06-01-2024 Patient encounter procedure [facility] Comment on above: Anatomy Scan OB Routine Start: 05-04-2024 End: 05-04-2024 Patient encounter procedure 05/04/2024 2:30 PM EDT Routine Office Visit OB/Gynecology [address] [place] [address] Jaquelin Hi APRN.CNM [address] [place] [address] OB Routine OB/Gynecology Comment on above: OB Routine Start: 04-07-2024 End: 04-07-2024 Patient encounter procedure [facility] Comment on above: Nuchal OB Routine Start: 04-07-2024 End: 07-07-2024 CARRIER SCREEN, STANDARD [facility] Comment on above: Expected: 04/07/2024, Expires: Start: 04-07-2024 End: 07-07-2024 Chromosome 21 trisomy [Presence] in Blood or Tissue by Cytogenetics [facility] Comment on above: Expected: 04/07/2024, Expires: Start: 04-07-2024 End: 07-07-2024 HEMOGLOBIN EVALUATION CASCADE [facility] Work Phone: Comment on above: Expected: 04/07/2024, Expires: Start: 03-17-2024 End: 03-17-2024 FQHC visit new patient 03/17/2024 1:00 PM EST Visit (SP) Office Hematology/Oncology [address] [place], [place] [phone] Jimmy Carbajal DO [address], [place] [phone] New patient Hematology/Oncology Comment on above: New patient Start: 03-09-2024 End: 06-08-2024 ANEMIA REFLEX PANEL ANEMIA REFLEX PANEL Lab Routine with uncertain dates, antepartum Expected: 03/09/2024, Expires: 06/08/2024 [facility] Work Phone: Comment on above: Expected: 03/09/2024, Expires: Start: 03-09-2024 End: 06-08-2024 Hemoglobin A1c in Blood HEMOGLOBIN A1C Lab Routine with uncertain dates, antepartum Expected: 03/09/2024, Expires: 06/08/2024 [facility] Comment on above: Expected: 03/09/2024, Expires: Start: 03-09-2024 End: 06-08-2024 Hepatitis B virus surface Ag [Presence] in Serum HEPATITIS B SURFACE ANTIGEN Lab Routine with uncertain dates, antepartum Expected: 03/09/2024, Expires: 06/08/2024 [facility] Comment on above: Expected: 03/09/2024, Expires: Start: 03-09-2024 End: 06-08-2024 Hepatitis C virus Ab [Presence] in Serum HEPATITIS C ANTIBODY IA WITH CONFIRMATION Lab Routine with uncertain dates, antepartum Expected: 03/09/2024, Expires: 06/08/2024 [facility] Comment on above: Expected: 03/09/2024, Expires: Start: 03-09-2024 End: 06-08-2024 HIV 1+2 Ab [Presence] in Serum or Plasma by Immunoassay HIV 1/2 COMBO WITH REFLEX TO DIFFERENTIATION Lab Routine with uncertain dates, antepartum Expected: 03/09/2024, Expires: 06/08/2024 [facility] Comment on above: Expected: 03/09/2024, Expires: Start: 03-09-2024 End: 03-09-2025 OBSTETRIC ULTRASOUND WHI OBSTETRIC ULTRASOUND WHI Anc Imaging Routine with uncertain dates, antepartum Expected: 03/09/2024, Expires: 03/09/2025 [facility] Comment on above: Expected: 03/09/2024, Expires: Start: 03-09-2024 End: 06-08-2024 RUBELLA IGG ANTIBODY RUBELLA IGG ANTIBODY Lab Routine with uncertain dates, antepartum Expected: 03/09/2024, Expires: 06/08/2024 [facility] Comment on above: Expected: 03/09/2024, Expires: Start: 03-09-2024 End: 06-08-2024 SYPHILIS TREPONEMAL W/REFLEX SYPHILIS TREPONEMAL W/REFLEX Lab Routine with uncertain dates, antepartum Expected: 03/09/2024, Expires: 06/08/2024 [facility] Comment on above: Expected: 03/09/2024, Expires: Start: 03-09-2024 End: 06-08-2024 TYPE + SCREEN TYPE + SCREEN Blood Bank Routine with uncertain dates, antepartum Expected: 03/09/2024, Expires: 06/08/2024 [facility] Comment on above: Expected: 03/09/2024, Expires: Start: 03-09-2024 End: 03-09-2024 Patient encounter procedure 03/09/2024 1:00 PM EST Initial Office Visit OB/Gynecology [address] [place] [address] Jaquelin Hi APRN.CN [address] [place] [address] New OB LMP 01/06 OB/Gynecology Comment on above: New OB LMP 01/06 Start: 02-03-2024 End: 02-03-2024 Patient encounter procedure 02/03/2024 9:40 AM EST Office Visit OB/Gynecology [address] [place], [place] [phone] Prabhu Ortez MD [address] [place], [place] [phone] ANNUAL OB/Gynecology Comment on above: ANNUAL Start: 01-27-2024 End: 01-27-2024 Patient encounter procedure 01/27/2024 11:00 AM EST Office Visit [facility] 3 [address] [facility] [address] [place] [phone] Ramiro Hugo MD [facility], [address] [place], [place] [phone] [facility] 3 Start: 12-26-2023 End: 12-26-2023 Patient encounter procedure 12/26/2023 10:00 AM EST Office Visit [facility] [address] [place] [address] Rachell Amador, CHILD CAREGIVER PRIVATE HOME.DOCTOR ASSISTANT [address] [place] [address] [facility] Comment on above: [facility] Start: 12-10-2023 End: 12-10-2023 Patient encounter procedure 12/10/2023 1:15 PM EDT Office Visit [facility] Medical Office Building [address] [place] [address] [place] [address] [facility] [address], [address] [place] [address] [facility] Office Building Start: 11-27-2023 End: 11-27-2023 Patient encounter procedure 11/27/2023 2:20 PM EDT Office Visit [facility] [address] [facility] [place] [address] Rachell Amador, CHILD CAREGIVER PRIVATE HOME.DOCTOR ASSISTANT [address] [place] [address] [place] [facility] Comment on above: [facility] Start: 11-05-2023 End: 11-05-2023 Patient encounter procedure 11/05/2023 11:00 AM EDT Office Visit [facility] Medical Office Building [facility] [address] [place] [phone] Miki Jaramillo MD [address] [place], [place] [phone] [facility] Medical Office [facility] Start: 10-16-2023 End: 10-16-2023 Admission to same day surgery center 10/16/2023 7:00 AM EDT [facility] Gastroenterology [address] [place] [address] Faiza Mishra, CHILD CAREGIVER PRIVATE HOME.DOCTOR ASSISTANT [address] [place], [place] [phone] [facility] for that they can manage her diarrhea. Gastroenterology Comment on above: [facility] for that they can manage her diarrhea. Start: 10-12-2023 Covid-19 Vaccine ( season) Covid-19 Vaccine ( season) [facility] Start: 10-12-2023 Covid-19 Vaccine ( season) Covid-19 Vaccine ( season) [facility] Start: 10-12-2023 Influenza vaccination [facility] Start: 10-03-2023 End: 10-03-2023 Admission to same day surgery center 10/03/2023 8:00 AM EDT - 10/03/2023 12:00 PM EDT Surgery [facility] [address] [place] [phone] Ramiro Hugo MD [address] [facility] 3, [facility] 301 [place] [address] Ablation SVT (40433) [21988 (CPT )] [facility] Comment on above: Ablation SVT (31587) [52655 (CPT )] Start: 10-03-2023 Subsequent hospital visit by physician 10/03/2023 8:00 AM EDT Hospital Encounter [facility] [address] [place] [phone] Ramiro Hugo MD [address] [facility] 3, [facility] [address] [place] [address] SVT (supraventricular tachycardia) ([facility]) [facility] Comment on above: SVT (supraventricular tachycardia) (CMS- HCC) Start: 09-29-2023 End: 09-29-2023 Patient encounter procedure 09/29/2023 2:30 PM EDT Office Visit General Surgery [address] [place], [place] [phone] Conor Duarte MD [address] [place] [address] Functional diarrhea General Surgery Comment on above: Functional diarrhea Start: 09-24-2023 End: 09-24-2023 Patient encounter procedure 09/24/2023 11:45 AM EDT Office Visit [facility] Medical Office Building [address] [place] [address] [place] [address] [address], [address] [place] [address] [facility] Office Building Start: 09-23-2023 Screening for malignant neoplasm of cervix [facility] Start: 09-15-2023 End: 09-15-2023 Admission to same day surgery center [facility] Surgery Comment on above: LAPAROSCOPY DIAGNOSTIC, Removal of IUD LAPAROSCOPY DIAGNOST IC Start: 09-15-2023 End: 09-15-2023 Laps abd prtm&omentum dx w/wo spec br/wa spx [facility] OR Start: 09-15-2023 End: 09-15-2023 Removal intrauterine device iud REMOVAL INTRAUTERINE DEVICE Malpositioned intrauterine device (IUD), sequela 09/15/2023 8:30 AM EDT ME OR Start: 09-15-2023 Subsequent hospital visit by physician [facility] Surgery Comment on above: Malpositioned intrauterine device (IUD), sequela [T83.32XS] Start: 09-12-2023 End: 09-12-2023 Patient encounter procedure 09/12/2023 10:40 AM EDT Office Visit OB/Gynecology [address] [place] [address] Mary Jo Chance MD [address] [place] [address] Pre Op Surgery 09/14 @ [facility] Comment on above: Pre Op Surgery 09/14 @ [facility] Start: 09-03-2023 End: 09-03-2023 Patient encounter procedure 09/03/2023 2:30 PM EDT Office [facility] [address] [place] [address] [place] [address] [address], [address] [place] [address] [facility] Office [facility] Start: 09-01-2023 End: 09-01-2023 Anesthesia consultation 09/01/2023 9:20 AM EDT PAT Pre Anesthesia [address] [facility] [place] [address] 1, [place] [address] [place] [address] LAPAROSCOPY DIAGNOSTIC Pre Anesthesia Comment on above: LAPAROSCOPY DIAGNOSTIC Start: 08-25-2023 End: 08-25-2023 Patient encounter procedure 08/25/2023 11:00 AM EDT Appointment [facility] [address] [place] [address] [facility] Comment on above: Echo Start: 08-21-2023 End: 08-20-2024 Basic metabolic 2000 panel - Serum or Plasma Basic Metabolic Panel Lab Routine SVT (supraventricular tachycardia) ([facility]) Expected: 08/21/2023 (Approximate), Expires: 08/20/2024 [facility] Service Area Work Phone: Comment on above: Expected: 08/21/2023 (Approximate), Expi res: 08/20/2024 Start: 08-21-2023 End: 08-20-2024 CBC panel - Blood by Automated count CBC Lab Routine SVT (supraventricular tachycardia) ([facility]) Expected: 08/21/2023 (Approximate), Expires: 08/20/2024 [facility] Work Phone: Comment on above: Expected: 08/21/2023 (Approximate), Expi res: 08/20/2024 Start: 08-20-2023 End: 08-20-2023 Patient encounter procedure 08/20/2023 12:45 PM EDT Appointment [facility] [address] [place] [address] [facility] Comment on above: Echo Start: 08-20-2023 End: 08-20-2023 Patient encounter procedure 08/20/2023 9:20 AM EDT Office Visit OB/Gynecology [address] [place] [phone] Mary Jo Chance MD [address] [place] [phone] [place] for IUD Removal OB/Gynecology Comment on above: Endosee for IUD Removal Start: 08-20-2023 End: 08-20-2023 Patient encounter procedure 08/20/2023 12:45 AM EDT Appointment [facility] [address] [place] [address] Echo [facility] Comment on above: Echo Start: 08-19-2023 End: 08-19-2023 Manual pelvic examination 08/19/2023 2:30 PM EDT Procedure OB/Gynecology [address] [place] [address] Pelvic pain in female [R10.2]; Intrauterine contraceptive device threads lost, initial encounter [T83.32XA]; Irregular bleeding [N92.6] OB/Gynecology Comment on above: Pelvic pain in female [R10.2]; Intrauter ine contraceptive device threads lost, initial encounter [T83.32XA]; Irregular bleeding [N92.6] Start: 08-18-2023 End: 08-17-2024 US Pelvis PELVIC US WHI Anc Imaging Routine Pelvic pain in female Intrauterine contraceptive device threads lost, initial encounter Irregular bleeding Expected: 08/18/2023, Expires: 08/17/2024 [facility] Work Phone: Comment on above: Expected: 08/18/2023, Expires: Start: 07-24-2023 End: 07-24-2023 Patient encounter procedure 07/24/2023 10:45 AM EDT Office Visit OB/Gynecology [address] [place] [address] Gino Valero APRN.[facility] [address] [place] [address] follow up OB/Gynecology Comment on above: follow up Start: 07-15-2023 End: 07-15-2023 Patient encounter procedure 07/15/2023 9:30 AM EDT Office Visit Pulmonary Medicine [address] [place] [address] Chantelle Low [facility] [address] [place] [address] Pulmonary Medicine Start: 07-10-2023 End: 07-10-2023 Patient encounter procedure 07/10/2023 11:15 AM EDT Office Visit [facility] [address] [facility] [address] [place] [phone] Alla Llanse MD [address] [facility], [address] [place] [address] [facility] Start: 07-09-2023 End: 07-09-2023 ambulatory 07/09/2023 2:30 PM EDT [facility] Psychiatry [address] [facility] [address] [place] [address] Dipti Freed, [address] [place], [place] [phone] med check Psychiatry Comment on above: med check Start: 07-09-2023 End: 07-09-2023 Patient encounter procedure [facility] Start: 07-08-2023 End: 07-08-2023 Patient encounter procedure 07/08/2023 11:00 AM EDT Office Visit [facility] [address] [phone] Alla Llanes MD 2212 [facility], [facility] [address] [place] [phone] [facility] Start: 07-02-2023 End: 07-01-2024 F5 gene [id number] [Presence] in Blood or Tissue by Molecular genetics method Factor V Leiden Lab Routine Single subsegmental pulmonary embolism without acute cor pulmonale (Multi) Expected: 07/02/2023 (Approximate), Expires: 07/01/2024 [facility] Service Area Work Phone: Comment on above: Expected: 07/02/2023 (Approximate), Expi res: 07/01/2024 Start: 07-02-2023 End: 07-01-2024 Prothrombin Gene Mutation Prothrombin Gene Mutation Lab Routine Single subsegmental pulmonary embolism without acute cor pulmonale (Multi) Expected: 07/02/2023 (Approximate), Expires: 07/01/2024 [facility] Work Phone: Comment on above: Expected: 07/02/2023 (Approximate), Expi res: 07/01/2024 Start: 07-02-2023 End: 07-02-2023 Patient encounter procedure [facility] Comment on above: ER follow up Start: 06-26-2023 End: 06-26-2023 Patient encounter procedure 06/26/2023 1:20 PM EDT Office Visit OB/Gynecology [address] [place] [phone] Prabhu Ortez MD [address] [place] [address] ER follow [facility] 06/24/23 OB/Gynecology Comment on above: ER follow [facility] 06/24/23 Start: 06-25-2023 End: 06-24-2025 Holter monitor study Holter Or Event [employer] Cardiac Services Routine Palpitations Expected: 06/25/2023 (Approximate), Expires: 06/24/2025 [facility] Service Area Work Phone: Comment on above: Expected: 06/25/2023 (Approximate), Expi res: 06/24/2025 Start: 06-25-2023 End: 06-24-2025 US.doppler Lower extremity vein - bilateral Vascular US Lower Extremity Venous Duplex Bilateral Vascular Ultrasound Routine Single subsegmental pulmonary embolism without acute cor pulmonale (Multi) Expected: 06/25/2023 (Approximate), Expires: 06/24/2025 [facility] Work Phone: Comment on above: Expected: 06/25/2023 (Approximate), Expi res: 06/24/2025 Start: 06-25-2023 End: 06-25-2023 Patient encounter procedure 06/25/2023 1:45 PM EDT Office Visit [facility] Medical Office Building [address] [place] [address] [place] [address] [facility] [address], [address] [place] [address] [facility] Medical Office Building Start: 06-22-2023 Blood chemistry [facility] Start: 06-22-2023 Plain chest X-ray Chest 1 View (Portable) [facility] Start: 06-22-2023 [facility] Start: 06-17-2023 Subsequent hospital visit by physician 06/17/2023 Hospital Encounter [facility] OR [address] [place] [address] Alla Llanes MD [address] [facility], [address] [place] [address] [facility] OR Start: 06-12-2023 End: 06-12-2023 ambulatory 06/12/2023 10:30 AM EDT [facility] Psychiatry [address] [facility] [address] [place] [address] Dipti Freed DO [address] [place] [address] [facility] Psychiatry Comment on above: [facility] Start: 05-25-2023 CHLAMYDIA SCREENING (18-24) CHLAMYDIA SCREENING (18-24) [facility] Start: 05-25-2023 GC (GONORRHEA) SCREENING (18-24) GC (GONORRHEA) SCREENING (18-24) [facility] Start: 05-25-2023 Screening for Chlamydia trachomatis Chlamydia Screening (18-24) [facility] Start: 05-13-2023 End: 08-12-2023 Thyrotropin [Units/volume] in Serum or Plasma TSH BLD Lab Routine PTSD (post-traumatic stress disorder) Expected: 05/13/2023, Expires: 08/12/2023 [facility] Work Phone: Comment on above: Expected: 05/13/2023, Expires: Start: 05-13-2023 End: 08-12-2023 Thyroxine (T4) free [Mass/volume] in Serum or Plasma T4 FREE/FREE THYROX Lab Routine PTSD (post-traumatic stress disorder) Expected: 05/13/2023, Expires: 08/12/2023 [facility] Work Phone: Comment on above: Expected: 05/13/2023, Expires: 4 Start: 05-13-2023 End: 08-12-2023 TOX SCREEN ROUT UR TOX SCREEN ROUT UR Lab Routine Episode of recurrent major depressive disorder, unspecified depression episode severity (HCC) Expected: 05/13/2023, Expires: 08/12/2023 [facility] Work Phone: Comment on above: Expected: 05/13/2023, Expires: 4 Start: 04-23-2023 End: 07-23-2023 CBC panel - Blood by Automated count CBC Lab Routine Spotting Expected: 04/23/2023, Expires: 07/23/2023 [facility] Work Phone: Comment on above: Expected: 04/23/2023, Expires: 4 Start: 10-11-2022 Covid-19 Vaccine (2022-24 season) Covid-19 Vaccine ( season) [facility] Start: 10-11-2022 Influenza vaccination [facility] Start: 08-14-2022 CHLAMYDIA SCREENING (18-24) CHLAMYDIA SCREENING (18-24) [facility] Start: 08-14-2022 GC (GONORRHEA) SCREENING (18-24) GC (GONORRHEA) SCREENING (18-24) [facility] Start: 11-12-2021 End: 01-12-2022 HIV 1+2 Ab [Presence] in Serum or Plasma by Immunoassay HIV 1 2 COMBO(AG/AB),WITH REFLEX TO DIFFERENTIATION Lab Routine Exposure to HIV Expected: 11/12/2021, Expires: 01/12/2022 [facility] Work Phone: Comment on above: Expected: 11/12/2021, Expires: 2 Start: 10-11-2021 Influenza vaccination INFLUENZA (#1) [facility] Start: 08-15-2021 End: 10-15-2021 HIV 1+2 Ab [Presence] in Serum or Plasma by Immunoassay HIV 1 2 COMBO(AG/AB),WITH REFLEX TO DIFFERENTIATION Lab Routine Screening for STD (sexually transmitted disease) Expected: 08/15/2021, Expires: 10/15/2021 [facility] Work Phone: Comment on above: Expected: 08/15/2021, Expires: 2 Start: 08-14-2021 End: 10-14-2021 Chronic hepatitis differentiation between hepatitis B and C virus panel - Serum or Plasma [facility] Work Phone: Comment on above: Expected: 08/14/2021, Expires: 2 Start: 08-14-2021 End: 10-14-2021 Hepatitis C virus Ab [Presence] in Serum [facility] Work Phone: Comment on above: Expected: 08/14/2021, Expires: 2 Start: 08-14-2021 End: 10-14-2021 SYPHILIS TOTAL W/REFLEX [facility] Work Phone: Comment on above: Expected: 08/14/2021, Expires: 2 Start: 03-21-2021 End: 03-22-2022 Ondansetron Dispersible 4 mg Oral Tablet Once STAT ; Tablet, Disintegrating (ZOFRAN)DOSE = 4 mg Oral Once, PRN Nausea Start: 21-Mar-2021 End: 21-Mar-2022 Ordered: 21-Mar-2021 Tatyana Michaels [facility] Start: 2020 CHLAMYDIA SCREENING (18-) CHLAMYDIA SCREENING (18-) [facility] Start: 2020 Diabetes mellitus screening Diabetes Screening [facility] Start: 2020 GC (GONORRHEA) SCREENING (18) GC (GONORRHEA) SCREENING (-) [facility] Start: 2020 HEPATITIS C SCREENING HEPATITIS C SCREENING [facility] Start: 2020 Hepatitis C screening Hepatitis C Screening [facility] Start: 2020 HIV SCREENING HIV SCREENING [facility] Start: 08-22-2019 Adult depression screening assessment DEPRESSION SCREENING [facility] Start: 2018 Meningococcal B Vaccine (1 of 2 - Standard) Meningococcal B Vaccine (1 of 2 - Standard) [facility] Start: 2018 Meningococcal B Vaccine: Consider Based On Risk (1 of 2 - Patient Seeks Protection) Meningococcal B Vaccine: Consider Based On Risk (1 of 2 - Patient Seeks Protection) [facility] Start: 2018 MENINGOCOCCAL B: Consider based on risk (1 of 2 - Patient Seeks Protection) MENINGOCOCCAL B: Consider based on risk (1 of 2 - Patient Seeks Protection) [facility] Start: 2018 MENINGOCOCCAL CONJUGATE (2 - 2-dose series) MENINGOCOCCAL CONJUGATE (2 - 2-dose series) [facility] Start: 2016 PEDS TO ADULT TRANSITION ANNUAL ASSESSMENT PEDS TO ADULT TRANSITION ANNUAL ASSESSMENT [facility] Start: 2014 PEDS TO ADULT TRANSITION INITIAL DISCUSSION PEDS TO ADULT TRANSITION INITIAL DISCUSSION [facility] Start: 2012 MENINGOCOCCAL B: Consider based on risk (1 of 2 - Risk Bexsero 2-dose series) MENINGOCOCCAL B: Consider based on risk (1 of 2 - Risk Bexsero 2-dose series) [facility] Start: 2008 Pneumococcal Vaccine: Pediatrics (0 to 5 Years) and At-Risk Patients (6 to 64 Years) (1 of 1 - PPSV23 or PCV20) Pneumococcal Vaccine: Pediatrics (0 to 5 Years) and At-Risk Patients (6 to 64 Years) (1 of 1 - PPSV23 or PCV20) [facility] Start: 2006 Hearing Screening (#1) Hearing Screening (#1) [facility] Start: 2005 Well Child Visit (WCV) - Annual Well Child Visit (WCV) - Annual [facility] Start: 03-25-2003 COVID-19 VACCINE (#1) COVID-19 VACCINE (#1) [facility] Start: 2002 Hearing Screening (#1) Hearing Screening (#1) [facility] Start: 2002 Lipid panel Lipid Panel [facility] Start: 2002 Yearly Adult Physical Yearly Adult Physical [facility] Anion gap measurement [facility] Bacteria identified in Urine by Culture URINE CULTURE Microbiology Routine Burning with urination 11/12/2021 7:35 PM EDT [facility] Work Phone: End: 06-24-2023 Bacteria identified in Urine by Culture [facility] Work Phone: Comment on above: Once (Lab) for 1 Occurrences starting until 06/24/2023 End: 02-18-2024 Bacteria identified in Urine by Culture [facility] Work Phone: Comment on above: Once (Lab) for 1 Occurrences starting until 02/18/2024 Bacteria identified in Urine by Culture BACTERIAL CULTURE, URINE Microbiology Routine with uncertain dates, antepartum 03/09/2024 2:20 PM EST [facility] BACTERIAL VAGINOSIS AMPLIFICATION BACTERIAL VAGINOSIS AMPLIFICATION Lab Routine Acute vaginitis 11/12/2021 7:41 PM EDT [facility] Work Phone: BACTERIAL VAGINOSIS NAAT BACTERI AL VAGINOSIS NAAT Lab Routine Pelvic pain in female 08/18/2023 8:44 AM EDT [facility] BACTERIAL VAGINOSIS NAAT BACTERI AL VAGINOSIS NAAT Lab Routine Vaginal discharge 11/24/2023 1:25 PM EDT [facility] BUN/Creatinine ratio [facility] Calcium [Mass/volume ] in Serum or Plasma [facility] ALMITA / TRICHOMONA S AMPLIFICATION ALMITA / TRICHOMONAS AMPLIFICATION Lab Routine Screening for STD (sexually transmitted disease) Ordered: 08/14/2021 [facility] Work Phone: Comment on above: Ordered: 08/14/2021 ALMITA / TRICHOMONA S AMPLIFICATION ALMITA / TRICHOMONAS AMPLIFICATION Microbiology Routine Acute vaginitis 11/12/2021 7:41 PM EDT [facility] Work Phone: ALMITA/TRICHOMONAS NAAT ALMITA /TRICHOMONAS NAAT Lab Routine Pelvic pain in female 08/18/2023 8:44 AM EDT [facility] ALMITA/TRICHOMONAS NAAT ALMITA /TRICHOMONAS NAAT Lab Routine Vaginal discharge 11/24/2023 1:25 PM EDT [facility] Work Phone: Carbon dioxide, tota l [Moles/volume] in Serum or Plasma [facility] Chlamydia trachomatis+Neisseria gonorrhoeae DNA [Presence] in Unspecified specimen by SHYAM with probe detection GC/CHLAMYDIA DNA DET Lab Routine Screening for STD (sexually transmitted disease) Ordered: 08/14/2021 [facility] Work Phone: Comment on above: Ordered: 08/14/2021 Chlamydia trachomatis+Neisseria gonorrhoeae DNA [Presence] in Unspecified specimen by SHYAM with probe detection GONORRHEA/CHLAMYDIA NAAT Lab Routine Pelvic pain in female 08/18/2023 8:44 AM EDT [facility] Chlamydia trachomatis+Neisseria gonorrhoeae DNA [Presence] in Unspecified specimen by SHYAM with probe detection GONORRHEA/CHLAMYDIA NAAT Lab Routine Vaginal discharge 11/24/2023 1:25 PM EDT [facility] Chloride [Moles/volu me] in Serum or Plasma [facility] End: 06-17-2023 Choriogonadotropin ( test) [Presence] in Urine hCG, Urine, Qualitative Lab STAT STAT (Lab) for 1 Occurrences starting 06/17/2023 until 06/17/2023 [facility] Work Phone: Comment on above: STAT (Lab) for 1 Occurrences starting until 06/17/2023 End: 10-03-2023 Choriogonadotropin ( test) [Presence] in Urine POCT Point of Care Testing STAT Once (Lab) for 1 Occurrences starting 10/03/2023 until 10/03/2023 [facility] Work Phone: Comment on above: Once (Lab) for 1 Occurrences starting until 10/03/2023 End: 06-19-2023 Clostridioides difficile toxin A+B tcdA+tcdB genes [Presence] in Stool by SHYAM with probe detection C. difficile, PCR Microbiology STAT STAT (Lab) for 1 Occurrences starting 06/19/2023 until 06/19/2023 [facility] Work Phone: Comment on above: STAT (Lab) for 1 Occurrences starting until 06/19/2023 Creatinine [Moles/vo lume] in Serum or Plasma [facility] End: 06-21-2023 ECG 12 lead [facility] Work Phone: Comment on above: Once for 1 Occurrences starting 06/21/19 until 06/21/2023 ECG 12 lead (Clinic Performed) ECG 12 lead (Clinic Performed) ECG Routine Atrial fibrillation, unspecified type (Multi) 01/27/2024 9:30 AM EST [facility] Work Phone: End: 07-30-2024 Echocardiography ECHO Cardiology Routine Paroxysmal SVT (supraventricular tachycardia) (HCC) Palpitations 1 Occurrences starting 07/31/2023 until 07/30/2024 [facility] Work Phone: Comment on above: 1 Occurrences starting 07/31/2023 until 07/30/2024 Electrocardiogram, 12-lead PRN ACS symptoms Electrocardiogram, 12-lead PRN ACS symptoms ECG Routine As needed until discontinued starting 06/19/2023 [facility] Work Phone: Comment on above: As needed until discontinued starting Electrocardiogram, 12-lead PRN ACS symptoms Electrocardiogram, 12-lead PRN ACS symptoms ECG Routine As needed until discontinued starting 06/20/2023 [facility] Work Phone: Comment on above: As needed until discontinued starting Erythrocyte mean corpuscular volume determination [facility] End: 06-18-2023 Extra Urine [employer] [facility] Work Phone: Comment on above: Once for 1 Occurrences starting 06/18/19 until 06/18/2023 End: 06-24-2023 Extra Urine [employer] [facility] Work Phone: Comment on above: Once for 1 Occurrences starting 06/24/19 until 06/24/2023 End: 02-18-2024 Extra Urine [employer] [facility] Work Phone: Comment on above: Once for 1 Occurrences starting 02/17/19 until 02/18/2024 Glucose [Mass/volume ] in Serum or Plasma POCT Glucose Point of Care Testing - Docked Device Routine As needed (Lab) until discontinued starting 06/17/2023 [facility] Work Phone: Comment on above: As needed (Lab) until discontinued start ing 06/17/2023 Glucose [Mass/volume ] in Serum or Plasma [facility] Hematocrit [Volume Fraction] of Blood [facility] Hemoglobin [Mass/vol ume] in Blood [facility] HIV 1+2 Ab [Presence ] in Serum or Plasma by Immunoassay HIV 1 2 COMBO(AG/AB),WITH REFLEX TO DIFFERENTIATION Lab Routine Screening for STD (sexually transmitted disease) 08/14/2021 12:16 PM EDT [facility] Work Phone: End: 07-09-2023 Holter monitor study [facility] Work Phone: Comment on above: Once for 1 Occurrences starting 07/09/19 24 until 07/09/2023 Insertion intrauteri ne device iud INSERT INTRAUTERINE DEVICE Procedures Routine Abnormal uterine bleeding (AUB) Ordered: 06/26/2023 [facility] Work Phone: Comment on above: Ordered: 06/26/2023 Laparoscopy surg cholecystectomy Cholecystectomy Laparoscopy Symptomatic cholelithiasis [facility] [place] Leukocytes [#/volume ] in Blood [facility] Mean corpuscular hemoglobin concentration determination [facility] Mean corpuscular hemoglobin determination [facility] Measurement of renal function [facility] Neutrophil count [facility] Neutrophil percent differential count [facility] PAP TEST PAP TEST Lab Rou tono with uncertain dates, antepartum Screening for cervical cancer Screening for human papillomavirus (HPV) 03/09/2024 2:20 PM EST [facility] Patient Education [facility] Work Phone: Patient referral [facility] Work Phone: Platelets [#/volume] in Blood [facility] Potassium [Moles/vol ume] in Serum or Plasma [facility] End: 10-03-2023 PT and aPTT panel - Platelet poor plasma by Coagulation assay Coagulation Screen Lab Routine Once (Lab) for 1 Occurrences starting 10/03/2023 until 10/03/2023 [facility] Work Phone: Comment on above: Once (Lab) for 1 Occurrences starting until 10/03/2023 Red blood cell count [facility] Red cell distributio n width determination [facility] Removal intrauterine device iud REMOVE INTRAUTERINE DEVICE Procedures Routine Ordered: 08/20/2023 [facility] Work Phone: Comment on above: Ordered: 08/20/2023 ROUTINE, GR OUP B STREP PCR ROUTINE, GROUP B STREP PCR Microbiology Routine 36 weeks gestation of 12/03/2022 3:17 PM EDT [facility] Work Phone: Sodium [Moles/volume ] in Serum or Plasma [facility] End: 06-19-2023 Stool Pathogen Panel, PCR Stool Pathogen Panel, PCR Microbiology STAT Once (Lab) for 1 Occurrences starting 06/19/2023 until 06/19/2023 [facility] Area Work Phone: Comment on above: Once (Lab) for 1 Occurrences starting until 06/19/2023 Surgical pathology study Surgica l Pathology Exam Pathology and Cytology Routine Symptomatic cholelithiasis Release Upon Ordering for 1 Occurrences starting 06/17/2023 [facility] Work Phone: Comment on above: Release Upon Ordering for 1 Occurrences starting 06/17/2023 Urea nitrogen [Mass/volume] in Serum or Plasma [facility] End: 06-18-2023 Urinalysis complete W Reflex Culture panel - Urine [facility] Work Phone: Comment on above: Once (Lab) for 1 Occurrences starting until 06/18/2023 End: 06-24-2023 Urinalysis complete W Reflex Culture panel - Urine [facility] Service Area Work Phone: Comment on above: Once (Lab) for 1 Occurrences starting until 06/24/2023 End: 02-18-2024 Urinalysis complete W Reflex Culture panel - Urine [facility] Work Phone: Comment on above: STAT (Lab) for 1 Occurrences starting until 02/18/2024 US.doppler Lower extremity vein - bilateral Vascular US Lower Extremity Venous Duplex Bilateral Vascular Ultrasound Routine Single subsegmental pulmonary embolism without acute cor pulmonale (Multi) Other pulmonary embolism without acute cor pulmonale (Multi) 07/09/2023 10:35 AM EDT [facility] Service Area Work Phone: End: 09-18-2024 XR Pelvis AP and Inlet and Outlet XR PELVIS 3V AP/INLET/OUTLET Radiology Routine Malpositioned IUD, sequela Pelvic pain in female 1 Occurrences starting 08/20/2023 until 09/18/2024 [facility] Comment on above: 1 Occurrences starting 08/20/2023 until 09/18/2024 XR Pelvis AP and Inl et and Outlet XR PELVIS 3V AP/INLET/OUTLET Radiology Routine Malpositioned IUD, sequela Pelvic pain in female 08/20/2023 10:18 AM EDT [facility] Immun[facility] Immunization [facility] Immunization Notes Care Provider Fa [facility] 07-27-2024 RHO(D) immune globul in- IV or IM Yamila Ballard MD Work Phone: [facility] 07-27-2024 tetanus toxoid, redu gerry diphtheria toxoid, and acellular pertussis vaccine, adsorbed Yamila Ballard MD Work Phone: [facility] 11-05-2022 tetanus toxoid, redu gerry diphtheria toxoid, and acellular pertussis vaccine, adsorbed Prabhu Ortez MD Work Phone: [facility] 05-17-2020 tetanus toxoid, redu gerry diphtheria toxoid, and acellular pertussis vaccine, adsorbed Mitra Reed [employer]DOCTOR ASSISTANT Work Phone: [facility] 07-10-2017 tetanus toxoid, redu gerry diphtheria toxoid, and acellular pertussis vaccine, adsorbed Steven Rojas APRN.DOCTOR ASSISTANT Work Phone: [facility] 10-08-2016 Human Papillomavirus 9-valent vaccine Steven Rojas CHILD [employer].DOCTOR ASSISTANT Work Phone: [facility] Work Phone: 10-08-2016 influenza, injectabl e, quadrivalent, contains preservative Steven Rojas [employer]ILD [employer].DOCTOR ASSISTANT Work Phone: [facility] Work Phone: 10-08-2016 influenza virus vacc ine, unspecified formulation Liante Heller APRN.DOCTOR ASSISTANT Work Phone: [facility] 10-02-2015 hepatitis A vaccine, pediatric/adolescent dosage, 2 dose schedule Steven Rojas APRN.DOCTOR ASSISTANT Work Phone: [facility] 10-02-2015 Human Papillomavirus 9-valent vaccine Steven Rojas APRN.DOCTOR ASSISTANT Work Phone: [facility] 10-02-2015 meningococcal polysaccharide (groups A, C, Y and W-135) diphtheria toxoid conjugate vaccine (MCV4P) Steven Rojas APRN.DOCTOR ASSISTANT Work Phone: [facility] 10-02-2015 tetanus toxoid, redu gerry diphtheria toxoid, and acellular pertussis vaccine, adsorbed Steven Rojas APRN.DOCTOR ASSISTANT Work Phone: [facility] 09-15-2008 diphtheria, tetanus toxoids and acellular pertussis vaccine, 5 pertussis antigens Steven Rojas APRN.DOCTOR ASSISTANT Work Phone: [facility] 09-15-2008 diphtheria, tetanus toxoids and acellular pertussis vaccine, unspecified formulation Mitra Reed APRN.DOCTOR ASSISTANT Work Phone: [facility] 09-15-2008 hepatitis A vaccine, pediatric/adolescent dosage, 2 dose schedule Steven Rojas APRN.DOCTOR ASSISTANT Work Phone: [facility] 09-15-2008 hepatitis A vaccine, unspecified formulation Mitra Reed APRN.DOCTOR ASSISTANT Work Phone: [facility] 09-15-2008 measles, mumps and rubella virus vaccine Steven Rojas APRN.DOCTOR ASSISTANT Work Phone: [facility] 09-15-2008 poliovirus vaccine, inactivated Steven Rojas APRN.DOCTOR ASSISTANT Work Phone: [facility] 09-15-2008 poliovirus vaccine, unspecified formulation Mitra Trill [employer].DOCTOR ASSISTANT Work Phone: [facility] 09-15-2008 varicella virus vaccine Bartolome kevin Tricebury CHILD [employer].DOCTOR ASSISTANT Work Phone: [facility] 05-07-2006 pneumococcal conjuga te vaccine, 13 valent Steven Carnesbury CHILD [employer].DOCTOR ASSISTANT Work Phone: [facility] 05-07-2006 pneumococcal conjuga te vaccine, 7 valent Mitra Trill CHILD [employer].DOCTOR ASSISTANT Work Phone: [facility] 05-07-2006 varicella virus vaccine Bartolome kevin Rojas CHILD C[employer].DOCTOR ASSISTANT Work Phone: [facility] 11-14-2004 diphtheria, tetanus toxoids and acellular pertussis vaccine, 5 pertussis antigens Stevne Sonyaleannenedelia CHILD [employer].DOCTOR ASSISTANT Work Phone: [facility] 11-14-2004 diphtheria, tetanus toxoids and acellular pertussis vaccine, unspecified formulation Mitra Trill CHILD [employer].DOCTOR ASSISTANT Work Phone: [facility] 12-28-2003 haemophilus influenz ae type b vaccine, conjugate unspecified formulation Mitra Tritemitope CHILD [employer].DOCTOR ASSISTANT Work Phone: [facility] 12-28-2003 haemophilus influenz ae type b vaccine, HbOC conjugate Steven Rojas CHILD [employer].DOCTOR ASSISTANT Work Phone: [facility] 12-28-2003 measles, mumps and rubella virus vaccine Steven Hassanleannenedelia CHILD [employer].DOCTOR ASSISTANT Work Phone: [facility] 12-28-2003 poliovirus vaccine, inactivated Steven Rojas CHILD [employer].DOCTOR ASSISTANT Work Phone: [facility] 08-31-2003 diphtheria, tetanus toxoids and acellular pertussis vaccine, 5 pertussis antigens Steven Rojas CHILD [employer].DOCTOR ASSISTANT Work Phone: [facility] 08-31-2003 diphtheria, tetanus toxoids and acellular pertussis vaccine, unspecified formulation Mitra Trill CHILD [employer].DOCTOR ASSISTANT Work Phone: [facility] 08-31-2003 haemophilus influenz ae type b conjugate and Hepatitis B vaccine Mitra Trill CHILD [employer].DOCTOR ASSISTANT Work Phone: [facility] 08-31-2003 haemophilus influenz ae type b vaccine, HbOC conjugate Steven Pendlebury CHILD [employer].DOCTOR ASSISTANT Work Phone: [facility] 08-31-2003 hepatitis B vaccine, pediatric or pediatric/adolescent dosage Steven Pendlebury CHILD [employer].DOCTOR ASSISTANT Work Phone: [facility] 08-31-2003 pneumococcal conjuga te vaccine, 13 valent Steven Pendlebury CHILD [employer].DOCTOR ASSISTANT Work Phone: [facility] 08-31-2003 pneumococcal conjuga te vaccine, 7 valent Mitra Trill CHILD C[employer].DOCTOR ASSISTANT Work Phone: [facility] 03-21-2003 diphtheria, tetanus toxoids and acellular pertussis vaccine, 5 pertussis antigens Steven Pendlebury CHILD [employer].DOCTOR ASSISTANT Work Phone: [facility] 03-21-2003 diphtheria, tetanus toxoids and acellular pertussis vaccine, unspecified formulation Mitra Trill CHILD [employer].DOCTOR ASSISTANT Work Phone: [facility] 03-21-2003 haemophilus influenz ae type b vaccine, conjugate unspecified formulation Mitra Trill CHILD C[employer].DOCTOR ASSISTANT Work Phone: [facility] 03-21-2003 haemophilus influenz ae type b vaccine, HbOC conjugate Steven Pendlebury CHILD C[employer].DOCTOR ASSISTANT Work Phone: [facility] 03-21-2003 pneumococcal conjuga te vaccine, 13 valent Steven Pendlebury CHILD [employer].DOCTOR ASSISTANT Work Phone: [facility] 03-21-2003 pneumococcal conjuga te vaccine, 7 valent Mitra Trill CHILD [employer].DOCTOR ASSISTANT Work Phone: [facility] 03-21-2003 poliovirus vaccine, inactivated Steven Pendlebury CHILD [employer].DOCTOR ASSISTANT Work Phone: [facility] 2002 diphtheria, tetanus toxoids and acellular pertussis vaccine, 5 pertussis antigens Steven Pendlebury CHILD [employer].DOCTOR ASSISTANT Work Phone: [facility] 2002 diphtheria, tetanus toxoids and acellular pertussis vaccine, unspecified formulation Mitra Reed CHILD [employer].DOCTOR ASSISTANT Work Phone: [facility] 2002 haemophilus influenz ae type b vaccine, HbOC conjugate Steven Rojas CHILD [employer].DOCTOR ASSISTANT Work Phone: [facility] 2002 hepatitis B vaccine, pediatric or pediatric/adolescent dosage Steven Rojas CHILD [employer].DOCTOR ASSISTANT Work Phone: [facility] 2002 pneumococcal conjuga te vaccine, 13 valent Steven Rojas CHILD [employer].DOCTOR ASSISTANT Work Phone: [facility] 2002 poliovirus vaccine, inactivated Steven Rojas CHILD [employer].DOCTOR ASSISTANT Work Phone: [facility] 2002 hepatitis B vaccine, pediatric or pediatric/adolescent dosage Steven Rojas CH[employer].DOCTOR ASSISTANT Work Phone: [facility] Payers Date Payer Category Payer Self-pay [id number] 2021 Medicaid (Managed Care) 1.2. [id number] 2021 Unknown 2021 Unknown [id number] 2018 Unknown MMO MMO [employer] [id number] 2018-Present [phone] [address] [place] [address] PPO [id number] 2007 Medicaid [employer] [id number] 2007-Present [phone] [address] [place] [address] Medicaid [id number] 2007 Medicaid [id number] 2002 Unknown [id number] [id number]. 1069 2002 Unknown [id number] 2.16.840.1.991538.3.579.2. 1244 2002 Unknown [id number] 2.16.840.1.656510.3.579.2. 1246 2002 Unknown [id number] 2.16.840.1.741565.3.579.2. 1246 2002 Unknown [id number] 2.16.840.1.796036.3.579.2. 1242 2002 Unknown [id number] 2.16.840.1.700642.3.579.2. 1242 2002 Unknown [id number] 2.16840.1.666330.3.579.2. 1242 2002 Unknown [id number] 2.16.840.1.007305.3.579.2. 1242 2002 Unknown [id number] 2.16840.1.696305.3.579.2. 1242 2002 Unknown [id number] 2.16.840.1.173533.3.579.2. 1242 2002 Unknown [id number] 2.16840.1.457098.3.579.2. 1242 2002 Unknown [id number] 2.16.840.1.215721.3.579.2. 1242 2002 Unknown [id number] 2.16.840.1.090352.3.579.2. 1242 2002 Unknown [id number] 2.16.840.1.084477.3.579.2. 1242 2002 Unknown [id number] 2.16.840.1.486838.3.579.2. 1243 2002 Unknown [id number] 2.16.840.1.527614.3.579.2. 1244 2002 Unknown [id number] 2..840.1.310295.3.579.2. 1244 2002 Unknown [id number] 2.16.840.1.996438.3.579.2. 1244 Unknown [id number] Unknown [id number] Unknown [id number] Unknown [id number] Unknown [id number] [id number]. 462 Unknown [id number] [id number]. 462 Social History Date Type Detail Facility [facility] Start: 01-07-2021 End: 06-22-2023 Tobacco smoking consumption unknown [facility] Start: 2002 Sex Assigned At Female [facility] Start: 11-12-2021 End: 06-03-2023 Tobacco smoking status NHIS Never smoked tobacco [facility] Work Phone: Start: 08-14-2021 End: 09-12-2023 Alcohol intake Current non-drinker of alcohol (finding) [facility] Start: 10-29-2007 End: 11-12-2021 Tobacco Comment mom smokes outside [facility] Start: 2002 Sex Assigned At Not on file [facility] History of tobacco use Passive smoker [facility] Start: 11-12-2021 End: 06-03-2023 Tobacco use and exposure Smokeless tobacco non-user [facility] Start: 04-03-2022 [facility] Start: 08-11-2017 None [facility] Start: 08-18-2022 End: 10-10-2022 History of Social function [facility] Start: 08-18-2022 End: 10-10-2022 Tobacco use panel [facility] Retired 03/11/2019 P HQ Score 0 [facility] Start: 06-03-2023 End: 09-03-2023 Tobacco smoking status NHIS Ex-smoker [facility] Work Phone: End: 02-10-2022 History of tobacco use Current smoker [facility] Work Phone: End: 02-10-2022 History of tobacco use Cigarette Smoker [facility] Work Phone: Start: 06-03-2023 End: 08-21-2023 Alcoholic beverage intake Lifetime non-drinker (finding) [facility] Work Phone: Start: 05-24-2023 End: 02-18-2024 Exposure to SARS-CoV-2 (event) Not sure [facility] Start: 06-03-2023 Tobacco Comment Vapes [facility] Start: 06-12-2023 End: 09-03-2023 Tobacco use and exposure User of smokeless tobacco [facility] Work Phone: How often to you hav e a drink containing alcohol? Never [facility] In the past 12 month s, was there a time when you were not able to pay the mortgage or rent on time? No [facility] Work Phone: Start: 06-24-2023 End: 07-02-2023 Tobacco smoking status NHIS Smokes tobacco daily [facility] Work Phone: Start: 07-02-[address] [facility] Work Phone: Start: 09-18-2023 End: 08-24-2024 Alcohol intake Ex-drinker (finding) [facility] Start: 03-05-2024 Education 13 [facility] Start: 03-05-2024 Gender identity Identifies as female gender (finding) [facility] Start: 03-05-2024 Sexual orientation Heterosexual (finding) [facility] Goals Date Patient Goal Desired Activity /State Personal health goal Personal health goal Personal health goal Mental Status Date Assessment Result Facility 06-22-2023 Cognitive function Voice/Name [facility] Work Phone: Clinical Notes 07-01-2017 to 08-24-2024 Yoshi West RN - 08/24/2024 2:11 PM EDTPrenatal Quick Notes - Prabhu Ortez MD - 08/24/2024 10:54 AM EDTPrenatal Quick Notes - Prabhu Ortez MD - 08/24/2024 10:54 AM EDTPatient Instructions Note Date & Type Note Facility 08-24-2024 Note HNO ID: [id number] Author: YOSHI WEST RN Service: ? Author Type: Registered Nurse Type: Progress Notes Filed: 08/24/2024 14:37 Note Text: Pt arrived in stable condition. VSS. Denies any itching or discomfort after last weeks dose when we added famotadine. Denies fever, chills, cough or cold symptoms. Appears well. PIV started, famotadine given as ordered, Venofer given. Pt verbalized understanding to notify RN of sob, chest pain, chills or discomfort. Will monitor. Pt tolerated without incident. VSS, PIV removed, DSD placed. Denies questions or needs. Ambulated to [facility], no concerns. [facility] 08-24-2024 History of Present illness Narrative Pt arrived in stable condition. VSS. Denies any itching or discomfort after last weeks dose when we added famotadine. Denies fever, chills, cough or cold symptoms. Appears well. PIV started, famotadine given as ordered, Venofer given. Pt verbalized understanding to notify RN of sob, chest pain, chills or discomfort. Will monitor. Pt tolerated without incident. VSS, PIV removed, DSD placed. Denies questions or needs. Ambulated to [facility], no concerns. documented in this encounter [facility] 08-24-2024 Progress note Formatting of t his note might be different from the original. KJ - S: Keagan denies LOF, contractions or vaginal bleeding. O: 32w6d, see flow sheet SENSITIVE EXAM: Sensitive exam not performed. A/P: Assessment & Plan Supervision of high risk in third trimester (HCC) Thrombocytopenia affecting (HCC) Repeat CBC scheduled History of shoulder dystocia in prior Plans Antepartum anemia complicating in third trimester (HCC) Last IV iron infusion today Paroxysmal SVT (supraventricular tachycardia) (HCC) Continue metoprolol 32 weeks gestation of (HCC) Reviewed PTL & FM precautions Prabhu Ortez MD [facility] 08-24-2024 Miscellaneous Notes KJ - S: Keagan denies LOF, contractions or vaginal bleeding. O: 32w6d, see flow sheet SENSITIVE EXAM: Sensitive exam not performed. A/P: Assessment & Plan Supervision of high risk in third trimester (HCC) Thrombocytopenia affecting (HCC) Repeat CBC scheduled History of shoulder dystocia in prior Plans Antepartum anemia complicating in third trimester (HCC) Last IV iron infusion today Paroxysmal SVT (supraventricular tachycardia) (HCC) Continue metoprolol 32 weeks gestation of ([facility]) Reviewed PTL & FM precautions Prabhu Ortez MD documented in this encounter [facility] 08-24-2024 Instructions Deepthi Callahan MA - 08/24/2024 10:42 AM EDT SEQUENTIAL SCREENINGS The [facility] offers sequential screenings for women who are interested in screenings for chromosomal abnormalities and certain defects during a . The sequential screen combines ultrasound and blood tests to determine the risk of chromosomal abnormalities, including Down's Syndrome (Trisomy 21) and Trisomy 18, as well as open neural tube defects including spina bifida. Ultrasound examination is performed between 11 weeks and 13 weeks gestational age. Blood tests are drawn after the ultrasound and again later in the between 15 and 21 weeks gestational age. Please let your physician know if you are interested in this testing. It will require an appointment with our fuel conversion technician. This is not an ultrasound performed by a physician in our office during a routine visit. SIGNS AND SYMPTOMS OF LABOR 1. Contractions every 10 minutes or more often 2. Clear, pink, or brownish fluid (water) leaking from vagina 3. Feeling that baby is pushing down, pressure 4. Low, dull backache 5. Cramps that feel like a period 6. Cramps with or without diarrhea If you notice any of the above symptoms, contact our office at [phone] and ask to speak with a nurse. After hours, you can call doctors registry at [phone] OR call [facility] at [phone] and ask to have the doctor promotions manager paged. If you consider this an emergency, dial 9- or go to your nearest emergency department. NEED HELP? Are you dealing with a violent or abusive relationship? Are you a victim of rape or sexual assult? Call [facility] ([place]) 24 hour Crisis Hotline: 451.915.4062 or 862-543-1412. MANUAL Your Guide to a Healthy manual is now on-line. Visit [email or web address] ncyGuide to download your free copy documented in this encounter [facility] 08-20-2024 Note HNO ID: [id number] Author: YOSHI WEST RN Service: ? Author Type: Registered Nurse Type: Progress Notes Filed: 08/20/2024 17:49 Note Text: Pt arrived in stable conditon. VSS. Pt states she developed itching after 2nd iron infusion again. PA aware and adjusted order to include pepcid prior to treatment today. PIV started, no issues. Pepcid given as ordered. Venofer given over 15minutes. Pt tolerated well, VSS, pt declines to stay for post observation. Verbalized understanding to seek medical attention for chest pain and sob, and to follow up with PA if itching persists after this dose. PIV removed, DSD place. [facility] 08-20-2024 History of Present illness Narrative Pt arrived in stable conditon. VSS. Pt states she developed itching after 2nd iron infusion again. PA aware and adjusted order to include pepcid prior to treatment today. PIV started, no issues. Pepcid given as ordered. Venofer given over 15minutes. Pt tolerated well, VSS, pt declines to stay for post observation. Verbalized understanding to seek medical attention for chest pain and sob, and to follow up with PA if itching persists after this dose. PIV removed, DSD place. documented in this encounter [facility] 08-17-2024 Note HNO ID: [id number] Author: YOSHI WEST RN Service: ? Author Type: Registered Nurse Type: Progress Notes Filed: 08/17/2024 15:31 Note Text: Pt arrived in stable condition. VSS. Appears well, Pt states the evening after 1st dose of iron she developed itching/pruritus without hives or rash. OBgyn promotions manager notified and pt took benedryl and zyrtec as instructed. No concerns since. Discussed plan to repeat the same steps if she develops same symptoms this evening and to notify the Hem/Onc MD and her OBgyn to determine the plan for Friday. Will follow. PIV place, tolerated well. Iron given as ordered. Pt stayed for post observation. VSS, no concerns or need noted. Ambulated to [facility]. [facility] 08-17-2024 History of Present illness Narrative Pt arrived in stable condition. VSS. Appears well, Pt states the evening after 1st dose of iron she developed itching/pruritus without hives or rash. OBgyn promotions manager notified and pt took benedryl and zyrtec as instructed. No concerns since. Discussed plan to repeat the same steps if she develops same symptoms this evening and to notify the Hem/Onc MD and her OBgyn to determine the plan for Friday. Will follow. PIV place, tolerated well. Iron given as ordered. Pt stayed for post observation. VSS, no concerns or need noted. Ambulated to [facility]. documented in this encounter [facility] 08-12-2024 Note HNO ID: [id number] Author: YOSHI WEST RN Service: ? Author Type: Registered Nurse Type: Progress Notes Filed: 08/12/2024 15:25 Note Text: Pt arrived in stable condition, VSS. No complaints. Pt educated on venofer infusions, denies questions at this time, PIV started without difficulty. Pt tolerated well. Venofer given as ordered. Pt without SANDS distress, will monitor. Post observation complete. VSS, pt appears well, no complaints. Denies questions or needs. Verbalized understanding to seek medical attention for sob, chest pain, chills or discomfort. Pt ambulated to [facility] no concerns. [facility] 08-12-2024 History of Present illness Narrative Pt arrived in stable condition, VSS. No complaints. Pt educated on venofer infusions, denies questions at this time, PIV started without difficulty. Pt tolerated well. Venofer given as ordered. Pt without S&S distress, will monitor. Post observation complete. VSS, pt appears well, no complaints. Denies questions or needs. Verbalized understanding to seek medical attention for sob, chest pain, chills or discomfort. Pt ambulated to [facility] no concerns. documented in this encounter [facility] 08-10-2024 Progress note Formatting of t his note might be different from the original. KJ - S: Keagan denies LOF, contractions or vaginal bleeding. O: 30w6d, see flow sheet SENSITIVE EXAM: Sensitive exam not performed. A/P: Assessment & Plan Supervision of high risk in third trimester (HCC) Thrombocytopenia affecting (HCC) Repeat CBC in 3 weeks Antepartum anemia complicating in third trimester ([facility]) IV iron scheduled History of shoulder dystocia in prior Plans unless EFW less than prior infant. Paroxysmal SVT (supraventricular tachycardia) ([facility]) On metoprolol Reviewed PTL & FM precautions Prabhu Ortez MD [facility] 08-10-2024 Miscellaneous Notes KJ - S: Keagan denies LOF, contractions or vaginal bleeding. O: 30w6d, see flow sheet SENSITIVE EXAM: Sensitive exam not performed. A/P: Assessment & Plan Supervision of high risk in third trimester (HCC) Thrombocytopenia affecting (HCC) Repeat CBC in 3 weeks Antepartum anemia complicating in third trimester (HCC) IV iron scheduled History of shoulder dystocia in prior Plans unless EFW less than prior infant. Paroxysmal SVT (supraventricular tachycardia) (HCC) On metoprolol Reviewed PTL & FM precautions Prabhu Ortez MD documented in this encounter [facility] 08-10-2024 Instructions Alyx Cordero MA - 08/10/2024 11:25 AM EDT SEQUENTIAL SCREENINGS The [facility] offers sequential screenings for women who are interested in screenings for chromosomal abnormalities and certain defects during a . The sequential screen combines ultrasound and blood tests to determine the risk of chromosomal abnormalities, including Down's Syndrome (Trisomy 21) and Trisomy 18, as well as open neural tube defects including spina bifida. Ultrasound examination is performed between 11 weeks and 13 weeks gestational age. Blood tests are drawn after the ultrasound and again later in the between 15 and 21 weeks gestational age. Please let your physician know if you are interested in this testing. It will require an appointment with our fuel conversion technician. This is not an ultrasound performed by a physician in our office during a routine visit. SIGNS AND SYMPTOMS OF LABOR 1. Contractions every 10 minutes or more often 2. Clear, pink, or brownish fluid (water) leaking from vagina 3. Feeling that baby is pushing down, pressure 4. Low, dull backache 5. Cramps that feel like a period 6. Cramps with or without diarrhea If you notice any of the above symptoms, contact our office at [phone] and ask to speak with a nurse. After hours, you can call doctors registry at [phone] OR call [facility] at [phone] and ask to have the doctor promotions manager paged. If you consider this an emergency, dial or go to your nearest emergency department. NEED HELP? Are you dealing with a violent or abusive relationship? Are you a victim of rape or sexual assult? Call [facility] ([place]) 24 hour Crisis Hotline: 495.524.1440 or 121-419-3268. MANUAL Your Guide to a Healthy manual is now on-line. Visit [email or web address] ncyGuide to download your free copy documented in this encounter [facility] 08-05-2024 Instructions Nayely Gil PA-C - 08/05/2024 3:25 PM EDT Images from the original note were not included. Summary of today's visit: - You have iron deficiency anemia and require IV iron infusions. - We are in the process of arranging IV iron infusions for you at [facility]. Once the clinic has processed the referral, someone will contact you to schedule appointments. Insurance preauthorization may be required and can take 7 - 14 days. Please call the infusion center directly at [phone] to schedule an appointment if you don't receive a call within a week. If you are taking an oral iron supplement, please stop taking while receiving IV treatment. You can resume the oral iron supplement as tolerated after the iron infusions have been completed. Details of your ordered iron infusion: IV iron, Venofer (iron sucrose) 200 mg x 4 doses has been ordered. Each treatment will last about 15-30 minutes. The first infusion may take longer due to observation period after receiving the iron infusion. There are no restrictions on eating or drinking, rather it is recommended that you eat and drink prior to each appointment. Side effects from iron infusion are rare but may include temporary metallic taste and low blood pressure. It is very rare to have flu-like symptoms for 4-6 hours after treatment. Report any side effects to the infusion nurses while you are at the infusion center. If you experience side effects after returning home, contact your provider for further instructions. If you experience dizziness, lightheadedness, fainting, shortness of breath or any other symptoms that are concerning to you, recommend to call 911 or proceed to the nearest emergency department for further evaluation and management. We will follow-up with repeat labs and virtual visit about 4 weeks after you have completed the iron infusions to monitor your response to the iron infusions and determine if further evaluation or management is needed. Please make sure to have your labs completed a few days prior to the appointment. See below for more information regarding iron deficiency anemia, IV Iron infusions and Iron Sucrose (Venofer). Please let me know if you have any questions. Anemia During You may have anemia during if a complete blood count (CBC) shows that your red blood cells, which carry oxygen through your body, are low. This can make you feel fatigued, dizzy, cold and out of breath. In most cases of anemia during , tweaks to your diet can put you on the right path. Overview What is anemia during ? Anemia is when you don t have enough red blood cells to carry oxygen throughout your body. When your body doesn t get enough oxygen from your blood, it can t function properly. A person who has anemia during is considered anemic. The red blood cells (RBCs) contain an important protein called hemoglobin. This protein holds oxygen and helps your red blood cells carry oxygen from your lungs to your body. It also helps carry carbon dioxide from your body to your lungs so you can breathe it out. To produce RBCs and hemoglobin, your body needs a consistent supply of iron and vitamins. Without that supply, your body won t produce enough hemoglobin to properly carry oxygen to your organs. It s common for women to become anemic during because they don t have enough iron and other vitamins. What are the types of anemia affecting women? There are more than 400 types of anemia. Some are more common during , including: Iron-deficiency anemia, from a lack of iron. Folate-deficiency anemia, from a lack of folic acid. Vitamin B12 deficiency anemia, from a lack of vitamin B12. Who is most likely to have anemia during ? Throughout , the amount of blood in your body increases by 20% to 30%. That means your body needs more iron for more red blood cells. You may be at higher risk for anemia during if you are: with multiples. Not consuming enough iron. Having gjnu-xe-zwae pregnancies with minimal time between. Experiencing a heavy menstrual flow before . Vomiting often because of morning sickness. Is it normal to be anemic during ? Yes. Because blood volume increases during , mild anemia is normal. Iron deficiency is common in , with up to 52% of women in developing countries not getting enough iron. Severe anemia is not typical. Both mild and severe anemia, however, require treatment to protect the health of you and the fetus. How does anemia affect the baby during ? The developing fetus relies on you to get enough iron, vitamin B12 and folic acid. Anemia can affect the growth of the fetus, especially during the first trimester. If anemia goes untreated, your baby is at higher risk of having anemia after , which can lead to developmental problems. Also, anemia increases the risk of delivering your baby early and having a low-weight baby. Can anemia during cause miscarriage? No. Anemia during doesn t directly cause miscarriage, but severe anemia can cause complications. Symptoms and Causes What causes anemia during ? itself is a cause of anemia because of the increase in blood volume. Other causes of anemia during include not consuming enough iron, vitamin B12 or folic acid. Other common causes of anemia can also cause anemia during : Certain diseases, including sickle cell anemia and thalassemia. Donating blood. Heavy menstrual flow (before ). Ulcers and polyps. What are the symptoms of anemia during ? You may not notice any symptoms of mild anemia at first. Over time, you may feel: Fatigue. Cold. Shortness of breath. Other symptoms include: Dizziness or weakness. Fast heartbeat. Headache. Pale, dry or easily bruised skin. Sore tongue. Unintended movement in the lower leg (restless legs syndrome). Diagnosis and Tests How is anemia during diagnosed? A blood test called a complete blood count (CBC) can diagnose anemia. This blood test is often done at one of your first appointments. Your healthcare provider uses the CBC to analyze: How many red blood cells you have, their size and shape (which can indicate certain conditions like sickle cell anemia). How much iron your body has stored. If you are low in vitamins B12 and B9. What is considered severe anemia during ? Severe anemia is when results of the CBC show hemoglobin that s 6.5 to 7.9 grams per deciliter (g/dL). If your results show you have severe anemia, your provider may do a blood transfusion, most likely in an outpatient setting. A blood transfusion will give you a healthy amount of red blood cells. Management and Treatment How is anemia treated in ? Treatment for anemia during depends on the severity. If you have: Mild to moderate anemia: Your provider will usually treat it with a daily vitamin or iron supplement. This gives your body healthy amounts of iron, vitamin B12 and folic acid. Severe anemia: You may need a blood transfusion. How can I treat anemia at home while ? The best way to treat the most common types of anemia is to make sure you re getting enough iron, B12 and folic acid. Take a vitamin every day. Talk to your healthcare provider about which vitamin they recommend. Diet changes can help, too. Eat more foods that are high in iron like spinach, lean beef and turkey. Foods that are high in vitamins that help your body absorb iron (like vitamin C) are important as well, including citrus fruits, tomatoes and peppers. How soon after treatment for anemia during will I notice a change? If you have iron-deficiency, T20-prgnncwxit or folate-deficiency anemia, you should begin to feel better within a few days of taking a supplement. If you don t notice a change, talk to your provider. What does untreated anemia do to the body? Untreated anemia can get worse over time. Having too little oxygen in the blood can damage your organs. It also forces the heart to work harder, increasing the risk of: Arrhythmia (irregular heartbeat). Enlarged heart. Heart failure. Prevention How can I prevent anemia during ? The best thing you can do for anemia prevention is to eat at least 30 milligrams (three servings) of iron each day. If you can t get that much iron in your diet, talk to your provider about taking an iron supplement. You should also take a vitamin daily. If possible, you should start taking vitamins before you get . Some vitamins don t have enough iron in them. So, talk to your healthcare provider to determine which type of vitamin is best for you. Keep in mind that you can do all the right things and still get mild anemia during . That s because of the natural increase in blood volume. If you feel tired, dizzy or have any other symptoms, talk to your provider. [place] / Prognosis What is the outlook for someone with anemia during ? If treated, the outlook for someone with anemia during is very good. You can easily treat this condition with supplements and minor diet adjustments. After you give , your blood volume and plasma levels should go back to normal. When should I worry about anemia during ? Talk to your provider if you experience signs of anemia: Dizziness. Headaches. Fast heartbeat. Pale skin. Sore tongue. Unintended movement in your lower legs. If you re worried, ask your provider about testing for anemia and what you can do to maintain healthy red blood cell levels throughout your . How do I take care of myself when I have anemia during ? The best way to care for yourself when you have anemia is to try and eat a healthy, iron-rich diet. Get plenty of rest and drink lots of fluids. Take a vitamin and/or iron supplement. Talk to your provider about the best supplement for you. A note from [facility] You may be slightly anemic during because blood volume increases by 20% to 30%. Keeping your diet rich in iron, vitamin C and B vitamins helps correct and prevent anemia. Taking a daily vitamin can help, too. Talk to your provider about your risk of anemia during and any concerns you may have. Information obtained from: [facility] (https://my.[facility].org/[facility]/diseases/80119-ardhfh-pemlg g-). References Mily-Lino NM, Edwin MM. The impact of maternal iron deficiency and iron deficiency anemia on child's health (https://www.ncbi.nlm.nih.gov/pmc /articles/JSC3397437/). [place] Med J. 2015;36(2):146-149. Accessed 07/05/2021. [employer]. Peptic Ulcer Disease (https://gi.org/topics/peptic-ulc er-disease/). Accessed 07/05/2021. [place] [employer]. Anemia During (https://americanpregnancy.org/he althy-/-concern s/geojis-yioabe-vlsfrxwry/). Accessed 07/05/2021. [place] [employer]. Anemia and (https://www.hematology.org/educa tion/patients/anemia/). Accessed 07/05/2021. Coreen Kenyon. Chronic Anemia (https://www.ncbi.nlm.nih.gov/sosa isaura/FHW873846/). [Updated 2020Sep 20]. In: [employer] SOCIAL [Internet]. [place] [employer]; 2020. Accessed 07/05/2021. [employer]. Anemia (https://www.marchofdimes.org/com plications/anemia.aspx). Accessed 07/05/2021. National [place] of Diabetes and Digestive and Kidney Diseases. Symptoms & Causes of Colon Polyps (https://www.niddk.nih.gov/health -information/digestive-diseases/c olon-polyps/symptoms-causes). Accessed 07/05/2021. Iron-Deficiency Anemia Iron-deficiency anemia is a common blood disorder that affects your red blood cells. Symptoms tend to develop over time and may include fatigue, shortness of breath or a racing heart rate. Healthcare providers treat iron-deficiency anemia with iron supplements or infusions and by addressing any underlying health conditions. Overview Iron-deficiency anemia happens when there aren t enough healthy red blood cells to carry oxygen throughout your body. What is iron-deficiency anemia? Iron-deficiency anemia is a common blood disorder that affects your red blood cells. It s the most common form of anemia. It happens when there s a lack of iron in your blood, usually caused by bleeding. When you don t have enough iron, your bone marrow can t make hemoglobin, the molecule in your red blood cells that carries oxygen in your blood. And when you don t have enough hemoglobin, your blood can t carry oxygen throughout your body. As a result, you might feel tired. You may notice pale skin and cold hands and feet. Iron-deficiency anemia can also make you feel dizzy or lightheaded. Occasionally, it can cause chest pain, a fast heartbeat and shortness of breath. Or it can cause you to crave non-food items like ice, dirt or paper. These are all signs of iron-deficiency anemia. The good news is that treatment can help iron-deficiency anemia. Your healthcare provider can design a plan tailored to your needs. Stages of iron-deficiency anemia Normally, your body absorbs iron from the foods you eat. Your body stores iron so it s available to make hemoglobin. Iron-deficiency anemia develops when your body uses the iron stores faster than they can be replaced, or when the flow of iron into your system slows. This occurs in three stages: First stage. Iron stores decrease. Your low iron supply hasn t affected your red blood cells yet. Second stage. When iron stores are low, your body alters the way it processes red blood cells. Your bone marrow makes red blood cells without enough hemoglobin. Third stage. Hemoglobin drops below the normal range. You may develop signs of iron-deficiency anemia. Symptoms and Causes What are the symptoms of iron-deficiency anemia? Iron-deficiency anemia symptoms usually start out mild but worsen over time. They can include: Fatigue Headaches Irritability Muscle cramps Pallor (pale skin) Pica Shortness of breath (dyspnea) Sore tongue Spoon-shaped fingernails and toenails (koilonychia) Tachycardia (fast heart rate) What causes iron-deficiency anemia? Causes of iron-deficiency anemia may include: Blood loss from your period or from gastrointestinal conditions like esophageal reflux disease, ulcerative colitis or Crohn s disease Malabsorption, in which iron can no longer be absorbed through your stomach (This is more common in people with celiac disease or in those who ve had weight loss surgery.) Not getting enough iron in the foods you eat Risk factors of iron-deficiency anemia Statistically, you re more likely to develop iron-deficiency anemia if you: Are or have recently given Breastfeed Donate blood frequently Have a history of major surgery (especially gastrointestinal or weight loss surgery) Menstruate (especially if you have heavy periods) What are the complications of this condition? Severe or untreated iron-deficiency anemia can lead to complications like: Brain fog Growth or developmental delays (in children) Heart conditions like enlarged heart or heart failure Restless legs syndrome Diagnosis and Tests How is iron-deficiency anemia diagnosed? Healthcare providers use blood tests to diagnose iron-deficiency anemia. In addition to measuring iron levels, they check your levels of ferritin and total iron-binding capacity (TIBC) to confirm that you have a deficiency. Your healthcare provider may run different lab tests depending on your situation. Management and Treatment How is iron-deficiency anemia treated? Healthcare providers use iron supplementation or replacement to treat iron-deficiency anemia. They do this with: Oral iron supplements: Capsules or tablets that you take by mouth Iron infusions: Iron that you receive intravenously (through a vein) Your healthcare provider can determine which type of iron-deficiency anemia treatment is right for you. Most importantly, they ll also try to figure out why you re low in iron so they can treat the underlying cause. Side effects of treatment Iron supplementation might cause a metallic taste in your mouth or gastrointestinal side effects like: Constipation Dark bowel movements Diarrhea Nausea and vomiting Tell your healthcare provider if you develop these side effects. They may be able to reduce them by adjusting your iron dosage or regimen. How soon after treatment will I feel better? It depends on the treatment you receive and how low your iron was to begin with. People who take iron supplements may notice a difference in about two to three weeks. If you have iron infusions, you might start to feel better a little sooner. Prevention Can iron-deficiency anemia be prevented? Yes, you may be able to prevent iron-deficiency anemia if it s detected and treated early enough. If you ve already developed iron-deficiency anemia, a healthcare provider can easily correct the condition with treatment. [place] / Prognosis What s the outlook for people with iron-deficiency anemia? The outlook is good with treatment, but your healthcare provider will need to address any underlying conditions that cause iron-deficiency anemia. Iron supplementation is only a temporary fix because it doesn t address the actual cause. Suddenly becoming iron-deficient might point to conditions like stomach ulcers or colon polyps. In some cases, it can be a sign of gastrointestinal cancer. It s important to figure out why you re iron-deficient so you can get the right treatment. How do I take care of myself? Here are some ways to make sure you re getting enough iron: Ask your healthcare provider about testing for iron. Eat iron-rich foods like beans, red meat, beef or chicken livers and dark leafy greens. See your provider for regular blood tests. Talk to your provider if you have conditions that cause blood loss (like heavy menstrual periods or gastrointestinal disorders). What should I eat with iron-deficiency anemia? You can increase your body s iron stores by eating an iron-rich diet. Here are some foods to consider: Animal proteins: Beef, poultry, eggs, liver and fish Breads and cereals: Whole wheat bread, enriched white bread, rye bread, bran cereals and cereals with wheat Fruits: Figs, dates and raisins Legumes: Peas, beans, tofu and tempeh Vegetables: Spinach, broccoli, string beans, dark leafy greens, potatoes, cabbage and tomatoes Can I get rid of iron-deficiency anemia naturally? Eating fortified, iron-rich foods is always a good idea. But it won t necessarily keep you from getting iron-deficiency anemia. If you have extremely low iron, you ll likely need to see a healthcare provider for recommendations regarding iron supplements or iron infusions. I follow a vegan or vegetarian diet. What should I do to boost my iron intake? If you follow a vegan or vegetarian diet, look for iron-fortified breads and cereals. There are several non-meat options for boosting your iron intake, like beans, tofu, dried fruits and dark leafy greens. You can also try iron supplements. Always talk to your healthcare provider before adding any supplement to your regimen. When should I see my healthcare provider? You should see your healthcare provider regularly so they can monitor your iron levels and your overall health. You might see your healthcare provider every three months for a year or longer if you re being treated for iron-deficiency anemia. You may also need to see another specialist like a squirrel man or ship boss if bleeding is determined to be the cause. What questions should I ask my healthcare provider? If you ve received an iron-deficiency anemia diagnosis, here are some questions you might want to ask your healthcare provider: What can you tell me about the iron levels in my blood? How severe is my condition? Do I need to see another specialist? What type of treatment will I need? How long will I need iron supplementation? What side effects should I expect? When will I start to feel better? A note from [facility] We all have days when our responsibilities outweigh the amount of energy we have. But if you have iron-deficiency anemia, you might not be able to shake those feelings of fatigue. Tell your healthcare provider if you re tired all the time. They can run tests to determine a cause and recommend appropriate treatment. Information obtained from [facility] (https://my.[facility].org/h ealth/diseases/40564-phbf-exidatr ncy-anemia) References [place] [employer] Hemat[employer]. Iron (https://www.hematology.org/educa tion/patients/anemia/iron-deficie ncy)- (https://www.hematology.org/educa tion/patients/anemia/iron-deficie ncy)Deficiency Anemia (https://www.hematology.org/educa tion/patients/anemia/iron-deficie ncy). (https://www.hematology.org/educa tion/patients/anemia/iron-deficie ncy) Accessed 01/21/2024. PolicyStat Manual, Professional Version. Iron Deficiency Anemia (https://www.[employer]/pro fessional/owjzqseeue-eoi-gibxglvt /cighpvz-yazamr-ub-deficient-eryt hropoiesis/ylpv-vepbxfupfv-vgkdhi ). (https://www.[employer]/pro Vastonal/aidnonhzom-sxq-ctjinsfb /ejfnuvn-vjrqtw-gf-deficient-eryt hropoiesis/joeb-uyknnjupkt-gesslf ) Last reviewed 07/2022. Accessed 01/21/2024. National Heart, Lung, and Blood [place] ([place] Iron (https://www.nhlbi.nih.gov/health /anemia/rjoj-rsvzynujlw-ifdzoi)- (https://www.nhlbi.nih.gov/health /anemia/qguo-mvkevozlqy-kbloqt)De ficiency Anemia (https://www.nhlbi.nih.gov/health /anemia/zngr-zwqxusieap-gduktl). (https://www.nhlbi.nih.gov/health /anemia/obet-dkrkpnzktv-vcpexy) Last updated 05/03/2021. Accessed 01/21/2024. Lucia Pereira. Iron Supplementation (https://www.ncbi.nlm.nih.gov/sosa ks/WZY940346/). (https://www.ncbi.nlm.nih.gov/sosa ks/OQR864813/) In: [employer] [Internet]. [place] ([place]): [employer]; 2023-. Accessed 01/21/2024. Iron Infusion Iron is one of the minerals in the human body. If you don t have enough iron, your body can t make hemoglobin, and you may develop anemia. One way of treating anemia is with intravenous iron, or an iron infusion, which is delivered into a vein through a needle to increase the levels of iron and hemoglobin in your body. Overview If you don t have enough iron in your body, an iron infusion can add iron through your vein. What is an iron infusion? An iron infusion is a way to receive iron through a small catheter in your vein. Intravenous (IV) iron supplementation is another name for this. A healthcare provider performs this procedure in a medical office or clinic. How common is an iron infusion? Getting iron through an infusion isn t as common as getting oral (by mouth) iron. Healthcare providers prescribe oral iron supplements first. That works for many people, but some people need to receive iron through an IV if their iron levels are very low. Why is an iron infusion done? People usually receive IV iron infusions because they can t take oral (by mouth) iron. These include people who: Have bleeding in their gastrointestinal tract (gut) and need to replace iron quickly. (Your body absorbs IV iron more rapidly than iron you swallow.) Have inflammatory bowel disease (diseases of the intestines that cause pain, diarrhea and weight loss), and can t take oral iron because it upsets their gastrointestinal tract. Are on dialysis and often lose blood during dialysis. In addition, these people are usually taking an erythropoietin-stimulating agent (DONNA) and may need extra iron. Have iron-deficiency anemia and are having high blood loss surgery (> 500 milliliters) within the next two months and need to replace iron quickly. Have celiac disease (gluten intolerance). Have cancer and anemia and are taking an DONNA. Have tried oral iron, but it didn t work well for them. Have a vascular condition that makes them lose a lot of blood. Need to increase their iron level quickly because of or severe anemia. What iron level requires an iron infusion? It depends on the reason you re taking it. Different conditions require different iron levels. A healthcare provider may give you an IV iron infusion sooner for one condition than another. How many iron infusions do you need? You may only need one dose of some iron infusions. With others, you ll need one or two doses over the course of several weeks until your iron level is where it should be. It can take two months to fix your iron level and correct anemia. Procedure Details What happens before an iron infusion? A healthcare provider will decide how much iron you need. They can calculate the dose you need based on your weight and how much hemoglobin you have. Be sure to tell your provider about: Your medical conditions. Allergies you have. Medications you take. Supplements you take without a prescription. What happens during an iron infusion? During an iron infusion, a provider will: Clean the area where the IV will go into the skin on your arm or hand. Put a needle into the vein they select. The needle has a plastic IV tube on one end to use later. Tape the IV to your arm so it doesn t move around. Hang the fluid bag on an IV stand. Start a machine that pumps the fluid into your vein. How long does an iron infusion take? An IV iron infusion can take 15 to 30 minutes. Depending on the type and amount of iron, infusions times can be longer. What should I expect after an iron infusion? A healthcare provider will monitor you for 30 minutes or more after your iron infusion. They do this to make sure you don t have a bad reaction. How quickly does an iron infusion work? It depends on your situation. Normally, it may take several days to a week after you start your iron supplement before you start to feel better. Continue to watch your symptoms and take note of side effects the iron infusion might cause. If you have any questions or concerns, talk to your healthcare provider. Risks / Benefits What are the advantages of an iron infusion? An iron infusion quickly brings your iron level up. Today s iron infusions work better than the ones in the past. Multiple studies have found that an iron infusion is more effective and more tolerable than the oral (by mouth) kind. They also rarely cause a major reaction. What are the side effects of an iron infusion? Iron infusion side effects are usually minimal, but may include: Bloating or swelling of your face, arms, hands, lower legs or feet. Dizziness, faintness or lightheadedness when getting up suddenly from a lying or sitting position. Gastrointestinal pains, including nausea, cramps or diarrhea. Problems with breathing. Constipation (difficulty pooping). Headache. Joint or muscle pain. Skin problems, including rash. Chest pain. Low blood pressure. Anaphylaxis (a severe reaction that can include difficulty breathing, itching or a rash over your entire body). Recovery and [place] How long does it take to recover from an iron infusion? People usually feel better a few days to a week after an iron infusion. When To Call the Doctor When should I see my healthcare provider? Contact your provider if you have side effects that you can t manage. A note from [facility] Taking iron supplements by mouth works for many people, but it may not be right for you. The good news is that iron infusions have come a long way. Today s medicines can deliver high doses of iron in a short amount of time -- usually without a bad reaction. Don t be afraid to ask questions about your iron infusion if there s anything that isn t clear. Information obtained from [facility] (https://my.[facility].org/[facility]/treatments/03341-nhnboppaxx l-qcwx-wogdhbsmmnmoluq) References [place] Society of Hematology. Iron-Deficiency Anemia (http://www.hematology.org/Patien ts/Anemia/Iron-Deficiency.aspx). Accessed 10/09/2022. Agapito Mckeon. Iron infusion and newer intravenous iron formulations (https://pubmed.ncbi.nlm.nih.gov/ 50924883/). Chin Med J (Engl). 2020;134(15):7699-0037. Published 2020July 07. Accessed 10/09/2022. PolicyStat Manual Professional Version. Iron Deficiency Anemia (https://www.[employer]/pro fessional/evusblkynx-anl-mtyhunqk /uxygbvd-vjrohv-rj-deficient-eryt hropoiesis/ygyl-zdainyhatt-ihuber ). Last revised 07/2022. Accessed 10/09/2022. National Heart, Lung, and Blood [place] ([place] Multiple pages reviewed. [employer] ([place].). Dailymed. Ferumoxytol injection (https://dailymed.Clarassance.nih.gov/edgardo lymed/drugInfo.cfm?setid=uz50t6oe -48h9-9au8-[email or web address]&maryjane ence=consumer). Last revised 08/06/2021. Accessed 10/09/2022. [employer] ([place] Dailymed. Monoferric -- ferric derisomaltose injection, solution (https://dailymed.[place].nih.gov/edgardo lymed/drugInfo.cfm?jdjjf=25556i8e -1849-6id1-g36q4tv3-p82k-r876dvxm72il). Last revised 09/28/2021. Accessed 10/09/2022. Mayra T, Thom C, Nigel PÉREZ, et al. Questions and answers on iron deficiency treatment selection and the use of intravenous iron in routine clinical practice (https://pubmed.ncbi.nlm.nih.gov/ 61229078/). Yoana Med. 2020;53(1):274-285. Accessed 10/09/2022. Iron sucrose: Patient drug information What is this medication? IRON SUCROSE (EYE nirmal COLLEEN krik) treats low levels of iron (iron deficiency anemia) in people with kidney disease. Iron is a mineral that plays an important role in making red blood cells, which carry oxygen from your lungs to the rest of your body. This medicine may be used for other purposes; ask your health care provider or pharmacist if you have questions. COMMON BRAND NAME(S): Toni What should I tell my care team before I take this medication? They need to know if you have any of these conditions: Anemia not caused by low iron levels Heart disease High levels of iron in the blood Kidney disease Liver disease An unusual or allergic reaction to iron, other medications, foods, dyes, or preservatives or trying to get Breast-feeding How should I use this medication? This medication is for infusion into a vein. It is given in a hospital or clinic setting. Talk to your care team about the use of this medication in children. While this medication may be prescribed for children as young as 2 years for selected conditions, precautions do apply. Overdosage: If you think you have taken too much of this medicine contact a poison control center or emergency room at once. NOTE: This medicine is only for you. Do not share this medicine with others. What if I miss a dose? It is important not to miss your dose. Call your care team if you are unable to keep an appointment. What may interact with this medication? Do not take this medication with any of the following: Deferoxamine Dimercaprol Other iron products This medication may also interact with the following: Chloramphenicol Deferasirox This list may not describe all possible interactions. Give your health care provider a list of all the medicines, herbs, non-prescription drugs, or dietary supplements you use. Also tell them if you smoke, drink alcohol, or use illegal drugs. Some items may interact with your medicine. What should I watch for while using this medication? Visit your care team regularly. Tell your care team if your symptoms do not start to get better or if they get worse. You may need blood work done while you are taking this medication. You may need to follow a special diet. Talk to your care team. Foods that contain iron include: whole grains/cereals, dried fruits, beans, or peas, leafy green vegetables, and organ meats (liver, kidney). What side effects may I notice from receiving this medication? Side effects that you should report to your care team as soon as possible: Allergic reactions--skin rash, itching, hives, swelling of the face, lips, tongue, or throat Low blood pressure--dizziness, feeling faint or lightheaded, blurry vision Shortness of breath Side effects that usually do not require medical attention (report to your care team if they continue or are bothersome): Flushing Headache Joint pain Muscle pain Nausea Pain, redness, or irritation at injection site This list may not describe all possible side effects. Call your doctor for medical advice about side effects. You may report side effects to FDA at 0-223-OUT-2614. Where should I keep my medication? This medication is given in a hospital or clinic and will not be stored at home. NOTE: This sheet is a summary. It may not cover all possible information. If you have questions about this medicine, talk to your doctor, pharmacist, or health care provider. Information obtained from [facility] (https://my.[facility].org/ ealt/drugs/98810-vfio-mvigafj-ig jection) documented in this encounter [facility] 08-05-2024 History of Present illness Narrative [facility] DEPARTMENT OF PATIENT BLOOD MANAGEMENT INITIAL DISTANCE HEALTH VISIT I have communicated my name and active licensure. The patient's identity and physical location were verified at the time of this visit. No patient name on file. or their legal entry level marketing representative has been informed of the risks and benefits of -- and alternatives to -- treatment through a remote evaluation and consents to proceed with the evaluation remotely. This is a virtual visit using [employer] Video Visit. It required patient-provider interaction for the medical decision making as documented below. PATIENT NAME: Keagan Alicia DATE OF SERVICE: August 05, 2024 REFERRING PROVIDER: Jaquelin Hi APRN.CNM Subjective CHIEF COMPLAINT: My iron is low. HISTORY OF THE PRESENT ILLNESS: Keagan Alicia is a 23 year old female who has a past medical history of anemia, chronic tonsillitis, depression, cholelithiasis, GERD, H/O shoulder dystocia in prior , hemorrhoids, history of depression, nephrolithiasis, paroxysmal SVT, and postoperative pulmonary embolism (06/2023) who was referred to Blood Management for evaluation and management of anemia in and iron deficiency anemia. Risk factors for anemia: Reports: - ; 30w1d - Prior history of iron deficiency with two prior pregnancies - Family history of iron deficiency anemia in mother - History of chronic diarrhea since cholecystectomy in 06/2023 Denies: - Anticoagulation (previously on Eliquis, d/c 09/2023), alcoholism, cancer or chemotherapy, CKD, history of GIB, history of bariatric surgery or bowel resection, history of Crohn's, UC, or Celiac disease, or a restrictive diet. Signs and symptoms associated with anemia: Reports: - Fatigue - Night sweats; chronic and intermittent. - Shortness of breath with exertion - Tachycardia and palpitations - Lightheadedness or dizziness - Difficulty concentrating or brain fog - Pagophagia; craving for certain smells - Headache - Brittle hair or nails - Restless Legs - Abdominal discomfort - Diarrhea and constipation Denies: - Fever or chills - Loss of appetite - Unexplained weight loss or gain - Nausea or vomiting; early in now resolved - Bleeding : epistaxis, hematemesis, hemoptysis, hematuria, vaginal bleeding, black/tarry stools, bloody stools, and BRBPR Patient reports prior iron supplementation; Ferrous sulfate 325 mg tablet (65 mg elemental iron) PO daily. Patient with oral iron intolerance. Patient denies history of IV iron infusions or blood transfusions. Patient denies EtOH use. Vape prior to . Lives in [place]. 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 Medical/Surgical History: PAST MEDICAL HISTORY Diagnosis Date Anemia Chronic tonsillitis Depression 10/08/2016 Gall stone 07/2022 cholecystectomy after delivery GERD (gastroesophageal reflux disease) H/O shoulder dystocia in prior , currently ([facility]) 12/14/22 Hemorrhoids History of back problems History of depression History of shoulder dystocia in prior 03/10/2024 Kidney stones Paroxysmal SVT (supraventricular tachycardia) (HCC) Postoperative pulmonary embolism (HCC) 06/2023 Psychiatric disorder depression, anxiety and PTSD PAST SURGICAL HISTORY Procedure Laterality Date CHOLECYSTECTOMY HX 06/17/2023 [facility] IUD REMOVAL 09/15/2023 PT [facility]ULAR 10/03/2023 TONSILLECTOMY HX CURRENT MEDICATIONS: Current Outpatient Medications Medication Instructions aspirin, enteric coated (ECOTRIN LOW STRENGTH) 81 mg, ORAL, DAILY folic acid 1 mg, ORAL, DAILY metoprolol tartrate (short acting) (LOPRESSOR) 25 mg, 2 TIMES DAILY Omeprazole Magnesium (PRILOSEC OTC) 20 mg, ORAL, 2 TIMES DAILY NEEDED ondansetron (ZOFRAN) 4 mg, ORAL, EVERY 6 HOURS NEEDED Current medications that may affect iron absorption and/or blood loss: - Antacids (H2 receptor blockers, PPI) - Aspirin REVIEW OF SYSTEMS: Full ROS elicited today (August 05, 2024) and reported as negative except as documented in HPI. Objective VIDEO PHYSICAL EXAMINATION: (if done, performed via video enabled technology) GENERAL: alert and appropriate, in no distress, well-hydrated, well nourished, happy, smiling, interactive, and appears tired SKIN: no rash noted HEAD: normocephalic, no abnormality or lesion noted RESPIRATORY: breathing non-labored NEUROLOGIC: no facial droop, speech is clear and fluent and no obvious deficit Data Reviewed: WBC (k/uL) Date Value 07/27/2024 8.30 RBC (m/uL) Date Value 07/27/2024 3.55 (L) Hemoglobin (g/dL) Date Value 07/27/2024 9.5 (L) Hematocrit (%) Date Value 07/27/2024 29.7 (L) MCV (fL) Date Value 07/27/2024 83.7 MCH (pg) Date Value 07/27/2024 26.8 MCHC (g/dL) Date Value 07/27/2024 32.0 RDW-CV (%) Date Value 07/27/2024 13.5 Platelet Count (k/uL) Date Value 07/27/2024 150 MPV (fL) Date Value 07/27/2024 12.0 Iron Date Value Ref Range Status 07/27/2024 35 (L) 41 - 186 ug/dL Final TIBC Date Value Ref Range Status 07/27/2024 >535 (H) 232 - 386 ug/dL Final Ferritin Date Value Ref Range Status 07/27/2024 6.1 (L) 14.7 - 205.1 ng/mL Final Transferrin Saturation Date Value Ref Range Status 07/27/2024 <6.5 (L) 15.0 - 57.0 % Final Assessment & Plan Maternal iron deficiency anemia complicating , third trimester (HCC) - Patient referred to blood management for anemia in and iron deficiency anemia. - Reviewed with patient extensive etiology for anemia including but not limited to nutritional deficiencies, hemolysis, hereditary conditions, secondary to other disease processes such as kidney disease or malignancy, or bone marrow etiology. - Low suspicion for hereditary conditions such as Thalassemia given no family history and normocytosis. - Low suspicion for hemolysis given normal hepatic function on 02/2024 labs. - Renal and hepatic function normal. - Last TSH 0.704 on 05/15/2023 - No reported B symptoms with exception of long standing intermittent night sweats. Denies fever, chills, unintentional weight loss, loss of appetite or early satiety. - Most recent labs reviewed from 07/27/2024, labs consistent with iron deficiency anemia. - Ferritin 6.1, Iron 35, TIBC >535, TSAT <6.5%, and Hgb 9.5 g/dL - Reviewed with patient that iron deficiency occurs in several stages, first iron stores are depleted without causing anemia, which can then progress to anemia, initially normocytic with normal retic count, followed by microcytic and hypochromic anemia. - Reviewed possible causes of iron deficiency, suspect patient's iron deficiency is secondary to . - History of prior oral iron supplementation with Ferrous sulfate 325 mg tablet (65 mg elemental iron) PO daily. Patient with intolerance. - No history of prior IV iron supplementation. - Assess for the need to augment a patient s natural red blood cell production: - Symptomatic anemia - Blood transfusion avoidance - Iron depletion - Recommendations according to Blood Management patient care guidelines: - Per Ganzoni equation, 694 mg iron deficient utilizing pre- weight (54kg) and goal Hgb 11 g/dL - Therapy plan for Venofer (iron sucrose) 200 mg IV infusion x 4 doses was signed for [facility]. - Recommend to recheck labs (CBC, ferritin, iron+TIBC) 4 weeks after last infusion to ensure adequate response to IV iron supplementation. - Follow-up in ~6 weeks with labs prior to review results, assess treatment response and determine next steps. All questions were answered to patient's satisfaction, who verbalized full understanding and was in agreement with the above plan. The patient will contact our office with any concerns or changes in condition. Thank you for allowing me to participate in this patient's care. Please do not hesitate to contact me with questions. I spent a total of 40 minutes on the date of the service which included preparing to see the patient, [id number] patient care, completing clinical documentation, counseling and educating the patient/family/caregiver, ordering medications, tests, or procedures, independently interpreting results (not separately reported), communicating results to the patient/family/caregiver, and care coordination (not separately reported) Nayely Gil PA-C Department of Blood Management August 05, 2024 CC: Referring Provider: Jaquelin Hi APRN.CNM PCP: Rachell Amador APRN.DOCTOR ASSISTANT documented in this encounter [facility] 08-05-2024 Note HNO ID: [id number] Author: NAYELY GIL PA-C Service: ? Author Type: Physician Jazz Musician Type: Progress Notes Filed: 08/05/2024 15:28 Note Text: [facility] DEPARTMENT OF PATIENT BLOOD MANAGEMENT INITIAL DISTANCE HEALTH VISIT I have communicated my name and active licensure. The patient's identity and physical location were verified at the time of this visit. No patient name on file. or their legal entry level marketing representative has been informed of the risks and benefits of -- and alternatives to -- treatment through a remote evaluation and consents to proceed with the evaluation remotely. This is a virtual visit using [employer] Video Visit. It required patient-provider interaction for the medical decision making as documented below. PATIENT NAME: Keagan Alicia DATE OF SERVICE: August 05, 2024 REFERRING PROVIDER: Jaquelin Hi APRN.CNM Subjective CHIEF COMPLAINT: My iron is low. HISTORY OF THE PRESENT ILLNESS: Keagan Alicia is a 23 year old female who has a past medical history of anemia, chronic tonsillitis, depression, cholelithiasis, GERD, H/O shoulder dystocia in prior , hemorrhoids, history of depression, nephrolithiasis, paroxysmal SVT, and postoperative pulmonary embolism (06/2023) who was referred to Blood Management for evaluation and management of anemia in and iron deficiency anemia. Risk factors for anemia: Reports: - ; 30w1d - Prior history of iron deficiency with two prior pregnancies - Family history of iron deficiency anemia in mother - History of chronic diarrhea since cholecystectomy in 06/2023 Denies: - Anticoagulation (previously on Eliquis, d/c 09/2023), alcoholism, cancer or chemotherapy, CKD, history of GIB, history of bariatric surgery or bowel resection, history of Crohn's, UC, or Celiac disease, or a restrictive diet. Signs and symptoms associated with anemia: Reports: - Fatigue - Night sweats; chronic and intermittent. - Shortness of breath with exertion - Tachycardia and palpitations - Lightheadedness or dizziness - Difficulty concentrating or brain fog - Pagophagia; craving for certain smells - Headache - Brittle hair or nails - Restless Legs - Abdominal discomfort - Diarrhea and constipation Denies: - Fever or chills - Loss of appetite - Unexplained weight loss or gain - Nausea or vomiting; early in now resolved - Bleeding : epistaxis, hematemesis, hemoptysis, hematuria, vaginal bleeding, black/tarry stools, bloody stools, and BRBPR Patient reports prior iron supplementation; Ferrous sulfate 325 mg tablet (65 mg elemental iron) PO daily. Patient with oral iron intolerance. Patient denies history of IV iron infusions or blood transfusions. Patient denies EtOH use. Vape prior to . Lives in [place]. 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 Medical/Surgical History: PAST MEDICAL HISTORY Diagnosis Date Anemia Chronic tonsillitis Depression 10/08/2016 Gall stone 07/2022 cholecystectomy after delivery GERD (gastroesophageal reflux disease) H/O shoulder dystocia in prior , currently ([facility]) 12/14/22 Hemorrhoids History of back problems History of depression History of shoulder dystocia in prior 03/10/2024 Kidney stones Paroxysmal SVT (supraventricular tachycardia) ([facility]) Postoperative pulmonary embolism ([facility]) 06/2023 Psychiatric disorder depression, anxiety and PTSD PAST SURGICAL HISTORY Procedure Laterality Date CHOLECYSTECTOMY HX 06/17/2023 [facility] IUD REMOVAL 09/15/2023 PT ED HEART AND VASCULAR 10/03/2023 TONSILLECTOMY HX CURRENT MEDICATIONS: Current Outpatient Medications Medication Instructions aspirin, enteric coated (ECOTRIN LOW STRENGTH) 81 mg, ORAL, DAILY folic acid 1 mg, ORAL, DAILY metoprolol tartrate (short acting) (LOPRESSOR) 25 mg, 2 TIMES DAILY Omeprazole Magnesium (PRILOSEC OTC) 20 mg, ORAL, 2 TIMES DAILY NEEDED ondansetron (ZOFRAN) 4 mg, ORAL, EVERY 6 HOURS NEEDED Current medications that may affect iron absorption and/or blood loss: - Antacids (H2 receptor blockers, PPI) - Aspirin REVIEW OF SYSTEMS: Full ROS elicited today (August 05, 2024) and reported as negative except as documented in HPI. Objective VIDEO PHYSICAL EXAMINATION: (if done, performed via video enabled technology) GENERAL: alert and appropriate, in no distress, well-hydrated, well nourished, happy, smiling, interactive, and appears tired SKIN: no rash noted HEAD: normocephalic, no abnormality or lesion noted RESPIRATORY: breathing non-labored NEUROLOGIC: no facial droop, speech is clear and fluent and no obvious deficit Data Reviewed: WBC (k/uL) Date Value 07/27/2024 8.30 RBC (m/uL) Date Value 07/27/2024 3.55 (L) Hemoglobin (g/dL) Date Value 07/27/2024 9.5 (L) (more content not included)... [facility] 08-03-2024 Telephone encounter Note Patient is currently at L&D. Chantelle Marquis RN [facility] 08-03-2024 Miscellaneous Notes Patient is currently at L&D. Chantelle Marquis, RN I can see patient at 1pm today. Prabhu Ortez MD Pt returns call re:Iron infusions and how often this would need done. Informed her Blood management would be in contact with her soon to review this. This RN asked Pt about mychart message she sent yesterday. Pt states her headaches are on and off-she is taking Tylenol, not helping. Frontal headache/sometimes just everywhere.Pt states she is staying hydrated. Drinking water and intermittently gatorade. Advised that she try the liquid IV in water to see if it helps. States blurred vision-is on and off, does not always happen with headaches. Pt does state light tends to make headache worse. Pt states increased swelling is in ankles. Pt voices shortness of breath-when asked if new, Pt states Kind of, not really. When asked if chest pain, Pt states On and off. And when asked if this is new, Pt states No. +Active FM. Advised Pt with above sx-again would advise she go to ER/L&D to be evaluated as no open appointments in office today. Pt states she has a heart appt in [place] (Hx Paroxysmal SVT) at 11:45am and will go to [facility] ER/ L&D after that to be assessed for Pre-e. Advised Pt message would be sent to KJ and if she had alternative guidance we would be in contact with her. Pt voiced understanding. Juliane Martin RN Agree with plan and would recommend appointment. Thank you, Jaquelin Hi APRN.CNM 29w5d See mychart message. Tried reaching patient via phone; however, went straight to voicemail. Sent Pt mychart reply and advised she go straight to ER with symptoms listed. Juliane Martin RN documented in this encounter [facility] 08-03-2024 Telephone encounter Note I can see patient at 1pm today. Prabhu Ortez MD [facility] 08-03-2024 History of Present illness Narrative Images from the original note were not included. Cardiac Electrophysiology Office Visit Referred by Dr. Fajardo ref. provider found for Chief Complaint Patient presents with 6 month f/u HPI: Keagan Alicia is a 23 y.o. year old female patient with h/o PE (likely provoked secondary to cholecystitis and tobacco use), palpitations presenting today for follow up PMHx/PSHx: As above Tobacco vaping, Alcohol Denies, Caffeine use Denies, Drug use Smokes marijuana every other day FamHx: pGF [place] in 30 Objective Current Outpatient Medications Medication Instructions folic acid (FOLVITE) 1 mg, Daily metoprolol tartrate (LOPRESSOR) 25 mg, oral, 2 times daily norethindrone (AYGESTIN) 5 mg, Daily RT [id number] 6-DHA ORAL Take by mouth. Visit Vitals BP 104/70 Pulse 92 Ht 1.6 m (5' 3) Wt 79.8 kg (176 lb) LMP 01/07/2024 (Exact Date) SpO2 98% BMI 31.18 kg/m OB Status Smoking Status Former BSA 1.88 m Physical Exam Vitals reviewed. Constitutional: Appearance: Normal appearance. HENT: Head: Normocephalic. Cardiovascular: Rate and Rhythm: Normal rate and regular rhythm. Pulmonary: Effort: Pulmonary effort is normal. No respiratory distress. Breath sounds: No wheezing. Skin: General: Skin is warm and dry. Capillary Refill: Capillary refill takes less than 2 seconds. Neurological: Mental Status: She is alert. Psychiatric: Mood and Affect: Mood normal. My Interpretation of Reviewed Study(s): Results DIAGNOSTIC EKG: Normal (08/03/2024) 14-day night monitor (July 2023): Predominant rhythm sinus with average heart rate 95 bpm. Few episodes of SVT longest lasting 3 minutes 44 seconds with short to mid RP tachycardia. There is also wide-complex tachycardic episode which likely is SVT with aberrancy Echo (August 2023): [facility] echo report showed Normal LVEF 55-60%. Normal right ventricular size and function. No significant valvular pathology is no pericardial effusions. 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 Symptoms include lightheadedness and dizziness, exacerbated during . Current management includes metoprolol, taken daily and as an extra dose during episodes. - Continue metoprolol 25 mg twice daily. - Advise taking an extra half dose (12.5 mg) of metoprolol if episodes last more than 15 minutes and heart rate exceeds 120 bpm, not exceeding two extra doses in 24 hours. - Post will evaluate with monitor and if SVT recurrence then AAD vs re-do ablation At 30 weeks gestation with a planned due to previous shoulder dystocia. Presenting with headache and swelling, raising concerns for preeclampsia. Blood pressure assessment is challenging due to metoprolol use. - Proceed to the ER for evaluation of headache and swelling, with consideration of preeclampsia. Return to Clinic: Patient should return to the EP Clinic in [address] Hugo [address] [facility] Cardiac Electrophysiology [email or web address] Disclaimer: This note was dictated by speech recognition, and every effort has been made to prevent any error in scrap stripper hand, however minor errors may be present This medical note was created with the assistance of artificial intelligence (AI) for documentation purposes. The content has been reviewed and confirmed by the healthcare provider for accuracy and completeness. Patient consented to the use of audio recording and use of AI during their visit. documented in this encounter [facility] Work Phone: 08-03-2024 Telephone encounter Note Pt returns call re:Iron infusions and how often this would need done. Informed her Blood management would be in contact with her soon to review this. This RN asked Pt about mychart message she sent yesterday. Pt states her headaches are on and off-she is taking Tylenol, not helping. Frontal headache/sometimes just everywhere.Pt states she is staying hydrated. Drinking water and intermittently gatorade. Advised that she try the liquid IV in water to see if it helps. States blurred vision-is on and off, does not always happen with headaches. Pt does state light tends to make headache worse. Pt states increased swelling is in ankles. Pt voices shortness of breath-when asked if new, Pt states Kind of, not really. When asked if chest pain, Pt states On and off. And when asked if this is new, Pt states No. +Active FM. Advised Pt with above sx-again would advise she go to ER/L&D to be evaluated as no open appointments in office today. Pt states she has a heart appt in [place] (Hx Paroxysmal SVT) at 11:45am and will go to [facility] ER/ L&D after that to be assessed for Pre-e. Advised Pt message would be sent to KJ and if she had alternative guidance we would be in contact with her. Pt voiced understanding. Juliane Martin RN [facility] 08-02-2024 Telephone encounter Note Agree with plan and would recommend appointment. Thank you, Jaquelin Hi APRN.CNM [facility] 08-02-2024 Telephone encounter Note 29w5d See [employer] message. Tried reaching patient via phone; however, went straight to voicemail. Sent Pt mychart reply and advised she go straight to ER with symptoms listed. Juliane Martin RN T [facility] 07-28-2024 Telephone encounter Note 3rd risk assessment form submitted 07/28/24 Josefa Ricks RN [facility] 07-28-2024 Miscellaneous Notes 3rd risk assessment form submitted 07/28/24 Josefa Ricks RN documented in this encounter [facility] 07-27-2024 Progress note Formatting of t his note might be different from the original. RR- VB No. LOF No. CTXS No. Movement: present. Other c/o: heartburn, pepcid not helping Medication list reviewed. SENSITIVE EXAM: Sensitive exam not performed. Physical Exam See Flow Sheet Abd: soft, nontender, gravid Ext: edema: Trace A/P 28w6d Estimated Date of Delivery: 10/13/24 Assessment & Plan 28 weeks gestation of ([facility]) Supervision of other high risk pregnancies, second trimester ([facility]) Rh negative state in antepartum period ([facility]) rh prohylaxis Need for vaccination desires tdap today Encounter for sterilization Risks, benefits and alternatives to sterilization have been discussed with the patient. She declines reversible options including LARC. She understands sterilization is permanent, irreversible, risks of failure, regret and ectopic. In addition she understands there are surgical risks as well. Her questions were answered to her satisfaction and consent was signed History of shoulder dystocia in prior d/w her r/b/ a to c/s vs vaginal delivery, plans c/s unless EFW signif less than last delivery Heartburn during , antepartum, third trimester ([facility]) d/c pepcid, trial prevacid Yamila Ballard M.D. [facility] 07-27-2024 Miscellaneous Notes RR- VB No. LOF No. CTXS No. Movement: present. Other c/o: heartburn, pepcid not helping Medication list reviewed. SENSITIVE EXAM: Sensitive exam not performed. Physical Exam See Flow Sheet Abd: soft, nontender, gravid Ext: edema: Trace A/P 28w6d Estimated Date of Delivery: 10/13/24 Assessment & Plan 28 weeks gestation of ([facility]) Supervision of other high risk pregnancies, second trimester ([facility]) Rh negative state in antepartum period (HCC) rh prohylaxis Need for vaccination desires tdap today Encounter for sterilization Risks, benefits and alternatives to sterilization have been discussed with the patient. She declines reversible options including LARC. She understands sterilization is permanent, irreversible, risks of failure, regret and ectopic. In addition she understands there are surgical risks as well. Her questions were answered to her satisfaction and consent was signed History of shoulder dystocia in prior d/w her r/b/ a to c/s vs vaginal delivery, plans c/s unless EFW signif less than last delivery Heartburn during , antepartum, third trimester (HCC) d/c pepcid, trial prevacid Yamila Ballard M.D. documented in this encounter [facility] 07-27-2024 Note HNO ID: [id number] Author: IVETH KOHLI RN Service: ? Author Type: Registered Nurse Type: Progress Notes Filed: 07/27/2024 14:44 Note Text: Patient identified by name and date of . Keagan Alicia presents today for a vaccination of Tdap. Patient denies an allergy to latex: no-single dose vial administered Patient denies a severe (life-threatening) allergy to a previous dose of Tdap, DTP, DTaP, DT or Td vaccine. Yes Patient denies history of epilepsy or neurological problems: Yes Patient is afebrile and denies being moderately or severely ill: Yes Patient denies history of Guillain-Chunky Syndrome (a severe paralytic illness): Yes Tdap Adacel injection was given without incident. See immunizations for details of immunizations administered today. VIS sheet provided: Yes Provider Dr. Ballard was present in office at time of injection. Iveth Kohli RN Keagan Padronjuventino 23 year old is here for her injection of Rhophylac. Keagan Alicia Antibody Screen (no units) Date Value 04/07/2024 Negative Keagan Alicia is RH Negative Rhophylac was given without incident. See immunizations for details of immunizations administered today. Provider Dr. Ballard was present in office at time of injection Keagan Alicia was given her Rhophylac pocket card. Iveth Kohli RN [facility] 07-27-2024 History of Present illness Narrative Patient identified by name and date of . Keagan Alicia presents today for a vaccination of Tdap. Patient denies an allergy to latex: no-single dose vial administered Patient denies a severe (life-threatening) allergy to a previous dose of Tdap, DTP, DTaP, DT or Td vaccine. Yes Patient denies history of epilepsy or neurological problems: Yes Patient is afebrile and denies being moderately or severely ill: Yes Patient denies history of Guillain-Chunky Syndrome (a severe paralytic illness): Yes Tdap Adacel injection was given without incident. See immunizations for details of immunizations administered today. VIS sheet provided: Yes Provider Dr. Ballard was present in office at time of injection. Iveth Kohli RN Keagan Alicia 23 year old is here for her injection of Rhophylac. Keagan Alicia Antibody Screen (no units) Date Value 04/07/2024 Negative Keagan Alicia is RH Negative Rhophylac was given without incident. See immunizations for details of immunizations administered today. Provider Dr. Ballard was present in office at time of injection Keagan Alicia was given her Rhophylac pocket card. Iveth Kohli RN documented in this encounter [facility] 07-27-2024 Instructions Joyce Clark MA - 07/27/2024 1:20 PM EDT SEQUENTIAL SCREENINGS The [facility] offers sequential screenings for women who are interested in screenings for chromosomal abnormalities and certain defects during a . The sequential screen combines ultrasound and blood tests to determine the risk of chromosomal abnormalities, including Down's Syndrome (Trisomy 21) and Trisomy 18, as well as open neural tube defects including spina bifida. Ultrasound examination is performed between 11 weeks and 13 weeks gestational age. Blood tests are drawn after the ultrasound and again later in the between 15 and 21 weeks gestational age. Please let your physician know if you are interested in this testing. It will require an appointment with our fuel conversion technician. This is not an ultrasound performed by a physician in our office during a routine visit. SIGNS AND SYMPTOMS OF LABOR 1. Contractions every 10 minutes or more often 2. Clear, pink, or brownish fluid (water) leaking from vagina 3. Feeling that baby is pushing down, pressure 4. Low, dull backache 5. Cramps that feel like a period 6. Cramps with or without diarrhea If you notice any of the above symptoms, contact our office at [phone] and ask to speak with a nurse. After hours, you can call doctors registry at [phone] OR call [facility] at [phone] and ask to have the doctor promotions manager paged. If you consider this an emergency, dial -[phone] or go to your nearest emergency department. NEED HELP? Are you dealing with a violent or abusive relationship? Are you a victim of rape or sexual assult? Call [facility] ([place]) 24 hour Crisis Hotline: 143.915.7411 or 015-708-4928. MANUAL Your Guide to a Healthy manual is now on-line. Visit [email or web address] ncyGuide to download your free copy documented in this encounter [facility] 06-29-2024 Note HNO ID: [id number] Author: JAQUELIN HI APRN.CNM Service: ? Author Type: Popped Corn Oven Attendant Type: Progress Notes Filed: 06/29/2024 15:21 Note Text: [facility] 06-29-2024 Note HNO ID: [id number] Author: JAQUELIN HI APRN.CNM Service: ? Author Type: Popped Corn Oven Attendant Type: Progress Notes Filed: 06/29/2024 15:32 Note Text: ASSESSMENT/PLAN: 1. Supervision of other high risk pregnancies, second trimester -Continue PNV -Continue ASA 2. 20 weeks gestation of 3. Nausea and vomiting in -Improved and no longer taking medication. 4. History of cardiac radiofrequency ablation 5. History of pulmonary embolism History of PE on 06/21/23 after laparoscopic cholecystectomy on 06/17/23. Completed therapeutic dose of Lovenox. Consulted and no anticoagulation needed during . Consider coagulation after delivery if additional risk factor (, prolonged hospitalization) 6. History of shoulder dystocia in prior -Shoulder dystocia for 1min and 35 seconds. 7lb 3oz. Ella and Suprapubic pressure applied, attempted removal of posterior arm and delivered with Gale Maneuver. -Growth US at 36 weeks. If current baby is similar to first child would like to attempt vaginal . If similar in size to second child that had shoulder dystocia, would like primary section with tubal ligation. 7. History of depression -No medication at this time, coping well -History of SI and suicide attempt 8. Rh negative state in antepartum period -Rhogam at 28wk PTL precautions reviewed and when to call RTO in 4 weeks [facility] 06-02-2024 Miscellaneous Notes 2nd risk assessment form submitted 06/02/24 Josefa Ricks RN documented in this encounter [facility] 06-02-2024 Telephone encounter Note 2nd risk assessment form submitted 06/02/24 Josefa Ricks RN [facility] 06-01-2024 Note HNO ID: [id number] Author: JAQUELIN HI APRN.FRANDY Service: ? Author Type: Popped Corn Oven Attendant Type: Progress Notes Filed: 06/29/2024 15:21 Note Text: [facility] 06-01-2024 History of Present illness Narrative ITZEL-S: Keagan Alicia is a 23 year old female who presents at 20w6d with LUZ:10/13/2024, by Last Menstrual Period for a routine visit. Denies headache, visual changes, chest pain, shortness of breath, vaginal bleeding, leakage of fluid, or dysuria. Feeling well, no complaints. O: See flow sheet Gen: No apparent distress Abd: Gravid, nontender ASSESSMENT/PLAN: 1. Supervision of other high risk pregnancies, second trimester -Continue PNV -Continue ASA -Anatomy US today 2. 20 weeks gestation of 3. Nausea and vomiting in -Improved and no longer taking medication. 4. History of cardiac radiofrequency ablation 5. History of pulmonary embolism History of PE on 06/21/23 after laparoscopic cholecystectomy on 06/17/23. Completed therapeutic dose of Lovenox. Consulted and no anticoagulation needed during . Consider coagulation after delivery if additional risk factor (, prolonged hospitalization) 6. History of shoulder dystocia in prior -Shoulder dystocia for 1min and 35 seconds. 7lb 3oz. Ella and Suprapubic pressure applied, attempted removal of posterior arm and delivered with Gale Maneuver. -Growth US at 36 weeks. If current baby is similar to first child would like to attempt vaginal . If similar in size to second child that had shoulder dystocia, would like primary section with tubal ligation. 7. History of depression -No medication at this time, coping well -History of SI and suicide attempt 8. Rh negative state in antepartum period -Rhogam at 28wk PTL precautions reviewed and when to call RTO in 4 weeks Jaquelin Hi APRN.CNM documented in this encounter [facility] 06-01-2024 Instructions Jaquelin Hi APRN.CNM - 06/01/2024 9:43 AM EDT [facility] [address] [place] [address] [facility] [address] [place], [place] [address] [facility] [address] [place] [address] [facility] [address] [place] [address] [email or web address] [address] [place] [address] [facility] [address] [place] [address] [email or web address] [address], [place] [address] [email or web address] [facility] [phone] [facility] [address] [place] [address] [facility] [address] [address] [facility] [place] office also [phone] [email or web address] [facility] [place] [phone] [address] [facility] [address] [place] [address] [facility] [address] [place] [address] [email or web address] [facility] [address] [place] [address] [email or web address] SIGNS AND SYMPTOMS OF LABOR 1. Contractions every 10 minutes or more often 2. Clear, pink, or brownish fluid (water) leaking from vagina 3. Feeling that baby is pushing down, pressure 4. Low, dull backache 5. Cramps that feel like a period 6. Cramps with or without diarrhea If you notice any of the above symptoms, contact our office at [phone] and ask to speak with a nurse. After hours, you can call doctors registry at [phone] OR call [facility] at [phone] and ask to have the doctor promotions manager paged. If you consider this an emergency, dial [phone]--[phone] or go to your nearest emergency department. NEED HELP? Are you dealing with a violent or abusive relationship? Are you a victim of rape or sexual assult? Call [facility] ([facility] 24 hour Crisis Hotline: 699.917.7584 or 318-872-4777. MANUAL Your Guide to a Healthy manual is now on-line. Visit [email or web address] ncyGuide to download your free copy documented in this encounter [facility] 05-11-2024 Telephone encounter Note Order signed and faxed. Antionette Ward RN [facility] 05-11-2024 Miscellaneous Notes Order signed and faxed. Antionette Ward RN Received breast pump RX from [employer]. To HILARIA to sign. Chantelle Marquis RN documented in this encounter [facility] 05-10-2024 Telephone encounter Note Received breast pump RX from [employer]. To HILARIA to sign. Chantelle Marquis RN [facility] 05-04-2024 Progress note Formatting of t his note is different from the original. ITZEL-S: Keagan Alicia is a 23 year old female who presents at 16w6d with LUZ:10/13/2024, by Last Menstrual Period for a routine visit. Denies headache, visual changes, chest pain, shortness of breath, vaginal bleeding, leakage of fluid, or dysuria. Feeling well, no complaints. Nausea and vomiting improved and no longer needing medication O: See flow sheet Gen: No apparent distress Abd: Gravid, nontender ASSESSMENT/PLAN: 1. Supervision of other high risk pregnancies, second trimester -Continue PNV -Continue ASA -Anatomy US at 20 wk 2. 16 weeks gestation of 3. Nausea and vomiting in -Improved and no longer taking medication. 4. History of cardiac radiofrequency ablation 5. History of pulmonary embolism History of PE on 06/21/23 after laparoscopic cholecystectomy on 06/17/23. Completed therapeutic dose of Lovenox. Consulted and no anticoagulation needed during . Consider coagulation after delivery if additional risk factor (, prolonged hospitalization) 6. History of shoulder dystocia in prior -Will discuss at future appointment. SD lasted 1min 35sec. 7. History of depression -No medication at this time, coping well -History of SI and suicide attempt 8. Rh negative state in antepartum period -Rhogam at 28wk PTL precautions reviewed RTO in 4 weeks Jaquelin Hi APRN.CNM [facility] 05-04-2024 Miscellaneous Notes ITZEL-S: Keagan Alicia is a 23 year old female who presents at 16w6d with LUZ:10/13/2024, by Last Menstrual Period for a routine visit. Denies headache, visual changes, chest pain, shortness of breath, vaginal bleeding, leakage of fluid, or dysuria. Feeling well, no complaints. Nausea and vomiting improved and no longer needing medication O: See flow sheet Gen: No apparent distress Abd: Gravid, nontender ASSESSMENT/PLAN: 1. Supervision of other high risk pregnancies, second trimester -Continue PNV -Continue ASA -Anatomy US at 20 wk 2. 16 weeks gestation of 3. Nausea and vomiting in -Improved and no longer taking medication. 4. History of cardiac radiofrequency ablation 5. History of pulmonary embolism History of PE on 06/21/23 after laparoscopic cholecystectomy on 06/17/23. Completed therapeutic dose of Lovenox. Consulted and no anticoagulation needed during . Consider coagulation after delivery if additional risk factor (, prolonged hospitalization) 6. History of shoulder dystocia in prior -Will discuss at future appointment. SD lasted 1min 35sec. 7. History of depression -No medication at this time, coping well -History of SI and suicide attempt 8. Rh negative state in antepartum period -Rhogam at 28wk PTL precautions reviewed RTO in 4 weeks Jaquelin Hi APRN.CNM documented in this encounter [facility] 05-04-2024 Instructions Steven Cruz MA - 05/04/2024 2:31 PM EDT SEQUENTIAL SCREENINGS The [facility] offers sequential screenings for women who are interested in screenings for chromosomal abnormalities and certain defects during a . The sequential screen combines ultrasound and blood tests to determine the risk of chromosomal abnormalities, including Down's Syndrome (Trisomy 21) and Trisomy 18, as well as open neural tube defects including spina bifida. Ultrasound examination is performed between 11 weeks and 13 weeks gestational age. Blood tests are drawn after the ultrasound and again later in the between 15 and 21 weeks gestational age. Please let your physician know if you are interested in this testing. It will require an appointment with our fuel conversion technician. This is not an ultrasound performed by a physician in our office during a routine visit. SIGNS AND SYMPTOMS OF LABOR 1. Contractions every 10 minutes or more often 2. Clear, pink, or brownish fluid (water) leaking from vagina 3. Feeling that baby is pushing down, pressure 4. Low, dull backache 5. Cramps that feel like a period 6. Cramps with or without diarrhea If you notice any of the above symptoms, contact our office at [phone] and ask to speak with a nurse. After hours, you can call doctors registry at [phone] OR call [facility] at [phone] and ask to have the doctor promotions manager paged. If you consider this an emergency, dial 9-1- or go to your nearest emergency department. NEED HELP? Are you dealing with a violent or abusive relationship? Are you a victim of rape or sexual assult? Call [facility] ([place]) 24 hour Crisis Hotline: 832.148.3150 or 380-519-8083. MANUAL Your Guide to a Healthy manual is now on-line. Visit [email or web address]/[email or web address] ncyGuide to download your free copy documented in this encounter [facility] 04-07-2024 Progress note Formatting of t his note might be different from the original. ITZEL-S: Keagan Alicia is a 23 year old female who presents at 13w0d with LUZ:10/13/2024, by Last Menstrual Period for a routine visit. Denies headache, visual changes, chest pain, shortness of breath, vaginal bleeding, leakage of fluid, or dysuria. Feeling well, no complaints. O: See flow sheet Gen: No apparent distress Abd: Gravid, nontender ASSESSMENT/PLAN: 1. Supervision of other high risk pregnancies, second trimester -Continue folic acid and if feeling better switch back to PNV -Start ASA -Desires NIPT and carrier screening -PN labs today 2. 13 weeks gestation of 3. Nausea and vomiting in -Improved taking phenergan as needed 4. History of cardiac radiofrequency ablation 5. History of pulmonary embolism History of PE on 06/21/23 after laparoscopic cholecystectomy on 06/17/23. Completed therapeutic dose of Lovenox. Consulted and no anticoagulation needed during . Consider coagulation after delivery if additional risk factor (, prolonged hospitalization) 6. History of shoulder dystocia in prior -Will discuss at future appointment, requesting delivery record 7. History of depression -No medication at this time, coping well 8. Rh negative state in antepartum period -Rhogam at 28wk PTL precautions reviewed and when to call RTO in 4 weeks Jaquelin Hi APRN.CNM [facility] 04-07-2024 Miscellaneous Notes ITZEL-S: Keagan Alicia is a 23 year old female who presents at 13w0d with LUZ:10/13/2024, by Last Menstrual Period for a routine visit. Denies headache, visual changes, chest pain, shortness of breath, vaginal bleeding, leakage of fluid, or dysuria. Feeling well, no complaints. O: See flow sheet Gen: No apparent distress Abd: Gravid, nontender ASSESSMENT/PLAN: 1. Supervision of other high risk pregnancies, second trimester -Continue folic acid and if feeling better switch back to PNV -Start ASA -Desires NIPT and carrier screening -PN labs today 2. 13 weeks gestation of 3. Nausea and vomiting in -Improved taking phenergan as needed 4. History of cardiac radiofrequency ablation 5. History of pulmonary embolism History of PE on 06/21/23 after laparoscopic cholecystectomy on 06/17/23. Completed therapeutic dose of Lovenox. Consulted and no anticoagulation needed during . Consider coagulation after delivery if additional risk factor (, prolonged hospitalization) 6. History of shoulder dystocia in prior -Will discuss at future appointment, requesting delivery record 7. History of depression -No medication at this time, coping well 8. Rh negative state in antepartum period -Rhogam at 28wk PTL precautions reviewed and when to call RTO in 4 weeks Jaquelin Hi APRN.CNM documented in this encounter [facility] 04-07-2024 Instructions Alisha Jordan LPN - 04/07/2024 2:45 PM EST SEQUENTIAL SCREENINGS The [facility] offers sequential screenings for women who are interested in screenings for chromosomal abnormalities and certain defects during a . The sequential screen combines ultrasound and blood tests to determine the risk of chromosomal abnormalities, including Down's Syndrome (Trisomy 21) and Trisomy 18, as well as open neural tube defects including spina bifida. Ultrasound examination is performed between 11 weeks and 13 weeks gestational age. Blood tests are drawn after the ultrasound and again later in the between 15 and 21 weeks gestational age. Please let your physician know if you are interested in this testing. It will require an appointment with our fuel conversion technician. This is not an ultrasound performed by a physician in our office during a routine visit. SIGNS AND SYMPTOMS OF LABOR 1. Contractions every 10 minutes or more often 2. Clear, pink, or brownish fluid (water) leaking from vagina 3. Feeling that baby is pushing down, pressure 4. Low, dull backache 5. Cramps that feel like a period 6. Cramps with or without diarrhea If you notice any of the above symptoms, contact our office at [phone] and ask to speak with a nurse. After hours, you can call doctors registry at [phone] OR call [facility] at [phone] and ask to have the doctor promotions manager paged. If you consider this an emergency, dial or go to your nearest emergency department. NEED HELP? Are you dealing with a violent or abusive relationship? Are you a victim of rape or sexual assult? Call [facility] ([place]) 24 hour Crisis Hotline: 698.862.1350 or 535-851-0199. MANUAL Your Guide to a Healthy manual is now on-line. Visit [email or web address]/[email or web address] ncyGuide to download your free copy documented in this encounter [facility] 03-17-2024 Progress note Formatting of t his note might be different from the original. DISTANCE HEALTH VISIT This Team Access Model visit is a virtual encounter. It required patient-provider interaction for the medical decision making as documented below. Keagan Alicia is a 23 year old female seen for nausea and vomiting. Went to ED and given IV fluids, positive for influenza. Zofran and Tamiflu. Was taking zofran from previous episode from hospital and that was not working well. Reglan given at last appointment and does not get any relief. Started pepcid and also does not feel this helps Stopped PNV and folic acid because she had difficulty keeping it down. Nausea and vomiting has worsened since ED visit on 03/10/24 Throwing up about >5 times a day, nauseated all day. Tried Vitamin B6 and Unisom with no relief Considering termination of due to history of blood clots. Was given resources for making appointment, she has not done so at this time and uncertain if she would like to proceed. HISTORY REVIEWED (electronic chart updated): - medical history - medications - allergies REVIEW OF SYSTEMS: GENERAL: feeling well without fatigue, no recent change in weight PHYSICAL EXAMINATION: VIDEO EXAM: (if done, performed via video enabled technology ASSESSMENT: 1. Supervision of other high risk pregnancies, first trimester - ICD9: V23.89, ICD10: O09.891 (primary diagnosis) -At this time does not think she will proceed with termination. 2. History of pulmonary embolism - ICD9: V12.55, ICD10: Z86.711 -Reviewed discussed with MFM and does not need anticoagulation at this time during . Referral to hematology but declines as she has seen in the past. 3. Nausea and vomiting in - ICD9: 643.90, ICD10: O21.9 -Failed Reglan, Zofran, and Vitamin B6 and Unisom -Will D/C Reglan -Start phenergan and add Bonjesta -Continue pepcid -Stop Folic acid and add back in when able to tolerate. Jaquelin Hi APRN.CNM I spent 20 minutes in the visit, with more than 50% of the total bxdf-tc-ahyk time of the visit in counseling / coordination of care. [facility] 03-17-2024 Miscellaneous Notes DISTANCE HEALTH VISIT This Team Access Model visit is a virtual encounter. It required patient-provider interaction for the medical decision making as documented below. Keagan Alicia is a 23 year old female seen for nausea and vomiting. Went to ED and given IV fluids, positive for influenza. Zofran and Tamiflu. Was taking zofran from previous episode from hospital and that was not working well. Reglan given at last appointment and does not get any relief. Started pepcid and also does not feel this helps Stopped PNV and folic acid because she had difficulty keeping it down. Nausea and vomiting has worsened since ED visit on 03/10/24 Throwing up about >5 times a day, nauseated all day. Tried Vitamin B6 and Unisom with no relief Considering termination of due to history of blood clots. Was given resources for making appointment, she has not done so at this time and uncertain if she would like to proceed. HISTORY REVIEWED (electronic chart updated): - medical history - medications - allergies REVIEW OF SYSTEMS: GENERAL: feeling well without fatigue, no recent change in weight PHYSICAL EXAMINATION: VIDEO EXAM: (if done, performed via video enabled technology ASSESSMENT: 1. Supervision of other high risk pregnancies, first trimester - ICD9: V23.89, ICD10: O09.891 (primary diagnosis) -At this time does not think she will proceed with termination. 2. History of pulmonary embolism - ICD9: V12.55, ICD10: Z86.711 -Reviewed discussed with MFM and does not need anticoagulation at this time during . Referral to hematology but declines as she has seen in the past. 3. Nausea and vomiting in - ICD9: 643.90, ICD10: O21.9 -Failed Reglan, Zofran, and Vitamin B6 and Unisom -Will D/C Reglan -Start phenergan and add Bonjesta -Continue pepcid -Stop Folic acid and add back in when able to tolerate. Jaquelin Hi APRN.CNM I spent 20 minutes in the visit, with more than 50% of the total iixx-qs-qdfk time of the visit in counseling / coordination of care. documented in this encounter [facility] 03-16-2024 Note HNO ID: [id number] Author: JAQUELIN HI APRN.CNM Service: ? Author Type: Popped Corn Oven Attendant Type: Progress Notes Filed: 03/17/2024 15:23 Note Text: [facility] 03-16-2024 History of Present illness Narrative documented in this encounter [facility] 03-11-2024 Telephone encounter Note 1st risk assessment form submitted 03/11/2024. Chantelle Rodriguez RN [facility] 03-11-2024 Miscellaneous Notes 1st risk assessment form submitted 03/11/2024. Chantelle Rodriguez RN documented in this encounter [facility] 03-10-2024 Note SARS-COV-2 (AGENT OF COVID-19) RNA: Not detected INFLUENZA A RNA: Detected INFLUENZA B RNA: Not detected RESPIRATORY SYNCYTIAL VIRUS (RSV) RNA: Not detected [facility] Comment on above: Performed By: #### 9 [id number] ####[facility] AGUSTIN [id number] [place] [address] [place] 03-10-2024 Note Addended by: JAQUELIN HI on: 03/10/2024 12:01 PM Modules accepted: Orders [facility] 03-10-2024 Miscellaneous Notes Addended by: JAQUELIN HI on: 03/10/2024 12:01 PM Modules accepted: Orders YENNY, see progress note. LMP consistent with US today. Jaquelin Hi APRN.CNM documented in this encounter [facility] 03-10-2024 Progress note Formatting of t his note might be different from the original. YENNY, see progress note. LMP consistent with US today. Jaquelin Hi APRN.CNM [facility] 03-09-2024 Note HNO ID: [id number] Author: JAQUELIN HI APRN.CNM Service: ? Author Type: Popped Corn Oven Attendant Type: Progress Notes Filed: 03/10/2024 16:44 Note Text: INITIAL OB ASSESSMENT HPI: Keagan is a 23 year old White Female here to establish Obstetrical Care. Patient's last menstrual period was 01/07/2024. from OB Dating Form. was unplanned and considering termination. Has two children and uncertain if she can handle a third child. Family has told her she would regret having and she also thinks this but does not know how she will do this. Was taking aygestin for control. Complaints: Some cramping but nothing continuous. Nausea at time. OB History T1 L2 SAB3 IAB0 Ectopic0 Multiple0 Live Births2 Comment: No DANDCs for missed abs Previous history: Prior : No History of 4th degree laceration: History question Answer Diagnosis Date Comment Perineal Laceration, 3rd or 4th degree No History of perineal laceration 03/09/2024 History of shoulder dystocia: Shoulder Dystocia Yes History of Hypertensive disorders including pre-eclampsia or gestational hypertension: Gestational Hypertension No Preeclampsia No History of gestational diabetes: Diabetes in No Patient's Risk Screening for delivery: Have you had a prior carney between 20w and 36w6d? (!) Yes Did you present in active spontaneous labor or have ruptured membranes, or advanced cervical dilation (greater than or equal to 4 cm) or effacement? (!) Yes How many pregnancies have you had before? 3 Did you have a previous baby with a GBS Infection? No Please select all that apply for any prior : N/A MEDICAL/PSYCHOSOCIAL HISTORY: History question Answer Diagnosis Date Comment Severe bleeding with delivery No History of hemorrhage 03/09/2024 History question Answer Diagnosis Date Comment Thyroid Disease No Thyroid disease 10/23/2022 Gestational Hypertension No Preeclampsia No Diabetes in No No results found for: ABORHD No weight on file for this encounter. Last Pap: History of abnormal pap: Abnormal Pap No Prior treatment for cervical dysplasia: none. Last HPV: History of STDs: Trichomonas Partner History of STDs: None Did you have a partner with Herpes? No Tobacco use: No E-Cigarette/Vaping Use: Yes Caffeine use: No Drug use: No Alcohol use: No Multivitamin with Folic acid: No - they are making her sick Would refuse blood transfusion if medically necessary: No Social Needs: How often does this describe you? I don't have enough money to pay my bills: Never Within the past 12 months, have you worried that your food would run out before you had money to buy more? Never In the past 12 months, has lack of reliable transportation kept you from going to medical appointments or work, or from getting things needed for daily living? Never In the past 12 months, have you had any concerns about having a place to live, or about the condition or quality of your housing? Never Would you like more information on any of the following (please check all that apply)? Not interested Social History: Do you have any history of depression, anxiety, PTSD, or other mood problems? Yes Do you have a history of abuse or trauma that may impact your experience? No Are you currently employed? Yes Depression/Anxiety Screening: denies symptoms of depression. OB Depression and Anxiety Screening- This Encounter (since 03/08/2024) Over the past 2 weeks have you felt down, depressed, or hopeless? Negative Over the past two weeks, have you felt little interest or pleasure in doing things?? Negative Feeling nervous, anxious or on edge 1-Several days Not being able to stop or control worrying 1-Several days Anxiety Pre-Screening Total (If >/= 3 additional questions will be reviewed) 2 Genetic Screening: Partner present: No Patient verbalized knowledge of partner family health history: Yes Do you or your partner have any personal or family history of defects not previously discussed: No Do you have history of a complicated by anomaly, genetic condition, or demise: No Preeclampsia Risk Screening: Screening for prevention of preeclampsia: High risk factors: None Moderate risk ractors: Sociodemographic characteristics ( race, low socioeconomic status) OB Risk Screening: Completed, positive findings include: Patient answered 'Yes' they had a prior carney between 20w and 36w6d. 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 [facility] 03-09-2024 History of Present illness Narrative INITIAL OB ASSESSMENT HPI: Keagan is a 23 year old White Female here to establish Obstetrical Care. Patient's last menstrual period was 01/07/2024. from OB Dating Form. was unplanned and considering termination. Has two children and uncertain if she can handle a third child. Family has told her she would regret having and she also thinks this but does not know how she will do this. Was taking aygestin for control. Complaints: (!) Abdominal pain OB History T1 L2 SAB3 IAB0 Ectopic0 Multiple0 Live Births2 Comment: No D&Cs for missed abs Previous history: Prior : No History of 4th degree laceration: History question Answer Diagnosis Date Comment Perineal Laceration, 3rd or 4th degree No History of perineal laceration 03/09/2024 History of shoulder dystocia: Shoulder Dystocia Yes History of Hypertensive disorders including pre-eclampsia or gestational hypertension: Gestational Hypertension No Preeclampsia No History of gestational diabetes: Diabetes in No Patient's Risk Screening for delivery: Have you had a prior carney between 20w and 36w6d? (!) Yes Did you present in active spontaneous labor or have ruptured membranes, or advanced cervical dilation (greater than or equal to 4 cm) or effacement? (!) Yes How many pregnancies have you had before? 3 Did you have a previous baby with a GBS Infection? No Please select all that apply for any prior : N/A MEDICAL/PSYCHOSOCIAL HISTORY: History question Answer Diagnosis Date Comment Severe bleeding with delivery No History of hemorrhage 03/09/2024 History question Answer Diagnosis Date Comment Thyroid Disease No Thyroid disease 10/23/2022 Gestational Hypertension No Preeclampsia No Diabetes in No No results found for: ABORHD No weight on file for this encounter. Last Pap: History of abnormal pap: Abnormal Pap No Prior treatment for cervical dysplasia: none. Last HPV: History of STDs: Trichomonas Partner History of STDs: None Did you have a partner with Herpes? No Tobacco use: No E-Cigarette/Vaping Use: Yes Caffeine use: No Drug use: No Alcohol use: No Multivitamin with Folic acid: No - they are making her sick Would refuse blood transfusion if medically necessary: No Social Needs: How often does this describe you? I don't have enough money to pay my bills: Never Within the past 12 months, have you worried that your food would run out before you had money to buy more? Never In the past 12 months, has lack of reliable transportation kept you from going to medical appointments or work, or from getting things needed for daily living? Never In the past 12 months, have you had any concerns about having a place to live, or about the condition or quality of your housing? Never Would you like more information on any of the following (please check all that apply)? Not interested Social History: Do you have any history of depression, anxiety, PTSD, or other mood problems? Yes Do you have a history of abuse or trauma that may impact your experience? No Are you currently employed? Yes Depression/Anxiety Screening: denies symptoms of depression. OB Depression and Anxiety Screening- This Encounter (since 03/08/2024) Over the past 2 weeks have you felt down, depressed, or hopeless? Negative Over the past two weeks, have you felt little interest or pleasure in doing things? Negative Feeling nervous, anxious or on edge 1-Several days Not being able to stop or control worrying 1-Several days Anxiety Pre-Screening Total (If >/= 3 additional questions will be reviewed) 2 Genetic Screening: Partner present: No Patient verbalized knowledge of partner family health history: Yes Do you or your partner have any personal or family history of defects not previously discussed: No Do you have history of a complicated by anomaly, genetic condition, or demise: No Preeclampsia Risk Screening: Screening for prevention of preeclampsia: High risk factors: None Moderate risk ractors: Sociodemographic characteristics ( race, low socioeconomic status) OB Risk Screening: Completed, positive findings include: Patient answered 'Yes' they had a prior carney between 20w and 36w6d. 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 IUD REMOVAL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 individual orders. EXTRA URINE EMERSON TUBE US PELVIS OB TRANSABDOMINAL W TRANSVAGINAL UP TO 1ST TRIMESTER Final Result 1. Single live intrauterine . 2. Estimated gestational age: 6 weeks 1 days. LUZ: 10/12/2024. 3. Small subchorionic hemorrhage. MACRO: None Signed by: Samia Valencia 02/18/2024 1:00 PM Dictation workstation: [id number] Medical Decision Making ED COURSE: This patient was seen and examined by myself independently. IV established. Labs drawn and noted above. Hydrated with NS 1L bolus. Medicated with Zofran IV. BS noted to be 64 on labs, given OJ and tolerated it well. US with IUP, 6w1d, small subchorionic hemorrhage. She's made aware of these findings. Repeat BS is 54, given 1amp D50 and PB crackers. UA with concern for infection, treated with PO keflex. Feeling better after eating. BS 168 now. Advised to continue eating healthy diet, small meals and small sips of fluids. Recommended follow up with PCP and OB for further evaluation. She verbalized understanding. She is discharged home in a stable condition with computer instructions given and is encouraged to return to the ER for any new or worsening symptoms. Differential Diagnoses Considered: dehydration, electrolyte abnormality, viral etiology, ectopic , UTI Chronic Medical Conditions Significantly Affecting Care: see above External Records Reviewed: I reviewed recent and relevant outside records including: PCP notes, prior discharge summary, previous radiologic studies Diagnostic testing considered: blood, urine, US vs xray Escalation of Care: Appropriate for outpatient management Prescription Drug Consideration: Keflex, Zofran DIAGNOSTIC IMPRESSION: #1 uti in #2 n/v/d #3 hypogylcemia JONAH Li 02/18/[address] [facility] Work Phone: 01-27-2024 History of Present illness Narrative Images from the original note were not included. Cardiac Electrophysiology Office Visit Referred by Ramiro Andrade MD for Chief Complaint Patient presents with Follow-up Ablation HPI: Keagan Alicia is a 23 y.o. year old female patient with h/o PE (likely provoked secondary to cholecystitis and tobacco use), palpitations presenting today for follow up PMHx/PSHx: As above Tobacco vaping , Alcohol Denies, Caffeine use Denies, Drug use Smokes marijuana every other day FamHx: pGF [place] in 30 Objective Current Outpatient Medications Medication Instructions norethindrone (AYGESTIN) 5 mg, Daily RT Visit Vitals BP 122/74 Pulse 68 Resp 16 Wt 59.4 kg (131 lb) SpO2 94% BMI 23.21 kg/m OB Status Having periods Smoking Status Former BSA 1.62 m Physical Exam Vitals reviewed. Constitutional: Appearance: Normal appearance. HENT: Head: Normocephalic. Cardiovascular: Rate and Rhythm: Normal rate and regular rhythm. Pulmonary: Effort: Pulmonary effort is normal. No respiratory distress. Breath sounds: No wheezing. Skin: General: Skin is warm and dry. Capillary Refill: Capillary refill takes less than 2 seconds. Neurological: Mental Status: She is alert. Psychiatric: Mood and Affect: Mood normal. My Interpretation of Reviewed Study(s): 14-day night monitor (July 2023): Predominant rhythm sinus with average heart rate 95 bpm. Few episodes of SVT longest lasting 3 minutes 44 seconds with short to mid RP tachycardia. There is also wide-complex tachycardic episode which likely is SVT with aberrancy Echo (August 2023): [facility] echo report showed Normal LVEF 55-60%. Normal right ventricular size and function. No significant valvular pathology is no pericardial effusions. Assessment/Plan #AVNRT s/p Slow Pathway Modification (Sep 2023) Since ablation pt has had rare episodes lasting a few minutes at a time. H/o Metoprolol use but was making pt very tired. If episodes occur more frequently then can consider longer acting Diltiazem 120mg daily >> Toprol XL 25mg Daily Return to Clinic: Patient should return to the EP Clinic in [address] MD [facility] Cardiac Electrophysiology [email or web address] Disclaimer: This note was dictated by speech recognition, and every effort has been made to prevent any error in scrap stripper hand, however minor errors may be present documented in this encounter [facility] Work Phone: 12-26-2023 Note HNO ID: [id number] Author: RACHELL AMADOR APRN.DOCTOR ASSISTANT Service: ? Author Type: Nurse Practitioner Type: Progress Notes Filed: 12/26/2023 11:34 Note Text: [place] [address] Date of Evaluation: 12/26/2023 Patient Name: Keagan Alicia : 2000 Keagan Alicia is a 23 year old female who presents for wellness exam. I reviewed past medical, surgical, social, and family histories today and updated chart. Allergies, chronic medications, and supplements were also reviewed. PMH of SVT, PE, anxiety, and depression. She developed a PE after cholecystectomy in June. She was started on Eliquis (for total of 3 months). She then developed SVT which ultimately required an ablation in September. She reports she still has palpitations and had an episode a few weeks ago where her heart was racing for a few minutes. She will still get lightheaded on occasion. She is currently on Metoprolol 12.5 mg BID. This makes her fatigued. She also developed heavy uterine bleeding while on the Eliquis and had an IUD placed in June. She then had her IUD removed in August due to it being malpositioned and causing pain. She is not currently on control. Exercise: Patient does not have an exercise routine. 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 Weight Trend: Last 2 Encounter Wt Readings: Date: Wt: 12/26/2023 56.2 kg (124 lb) 11/24/2023 54.4 kg (120 lb) Eating Habits: Patient does maintain healthy eating habits. Types of food appropriate diet Caffeine- Rare sweet tea use Drinks mostly water all day Tobacco Use: Vaping nicotine 5% Alcohol Use: On occasion She is no longer smoking marijuana Active Problem List/Chronic Problems There are no active hospital problems to display for this patient. Health Maintenance Cervical Cancer Screening Never done- Will schedule with gynecology Review of Systems Constitutional: Positive for fatigue (on BB). Negative for appetite change, chills, diaphoresis, fever and unexpected weight change. HENT: Positive for congestion, ear pain, rhinorrhea and sore throat. Negative for sinus pressure and sinus pain. Eyes: Negative. Respiratory: Positive for shortness of breath (with exertion). Negative for cough, chest tightness and wheezing. Cardiovascular: Positive for palpitations. Negative for chest pain and leg swelling. Gastrointestinal: Negative for abdominal pain, constipation, diarrhea, nausea and vomiting. Endocrine: Negative. Genitourinary: Negative for dysuria, frequency, menstrual problem and urgency. Musculoskeletal: Negative for arthralgias, back pain, gait problem and joint swelling. Skin: Negative. Allergic/Immunologic: Negative. Neurological: Positive for dizziness and light-headedness. Negative for tremors, seizures, syncope, weakness and headaches. Hematological: Negative. Psychiatric/Behavioral: Negative. PAIN: Negative for pain, history of chronic pain, or current treatment for a chronic pain condition. ALLERGIES Allergen Reactions Latex Itching colestipol (COLESTID) 1 gram tablet Take 1 tablet by mouth two times a day. ondansetron (ZOFRAN) 4 mg tablet Take 1 tablet by mouth every 6 hours as needed for nausea/vomiting. metoprolol tartrate, short acting, (LOPRESSOR) 25 mg tablet Take 0.5 tablets by mouth two times a day. PAST MEDICAL HISTORY Diagnosis Date Anemia Chronic tonsillitis Depression 10/08/2016 Gall stone 07/2022 cholecystectomy after delivery GERD (gastroesophageal reflux disease) Hemorrhoids History of back problems Kidney stones Paroxysmal SVT (supraventricular tachycardia) (HCC) Postoperative pulmonary embolism (HCC) 06/2023 Psychiatric disorder depression, anxiety and PTSD PAST SURGICAL HISTORY Procedure Laterality Date CHOLECYSTECTOMY HX 06/17/2023 [facility] IUD REMOVAL 09/15/2023 [facility] 10/03/2023 TONSILLECTOMY HX FAMILY HISTORY Problem Relation Age of Onset other (migraines) Mother None Father Ovarian cancer Maternal Grandmother Anesthesia Problems No Family History Last 3 Encounter BP Readings: Date: BP: 12/26/2023 122/62 11/24/2023 118/64 09/29/2023 100/62 BP 122/62 Pulse 52 Temp 98 Resp 16 Ht 5' 3 (1.60m) Wt 124 lb (56.2kg) SpO2 100% LMP 11/18/2023 BMI 21.97 kg/(m2). Physical Exam Vitals and nursing note reviewed. Constitutional: Appearance: Normal appearance. She is not ill-appearing. HENT: Head: Normocephalic. Right Ear: Tympanic membrane, ear canal and external ear normal. Left Ear: Tympanic membrane, ear canal and external ear normal. Nose: Congestion present. No rhinorrhea. Mouth/Throat: Mouth: Mucous membranes are moist. Pharynx: Oropharynx is clear. No oropharyngeal exudate or posterior oropharyngeal erythema. Eyes: Conjunctiva/sclera: Conjunctivae normal. Pupils: Pupils are equa (more content not included)... [facility] 12-26-2023 History of Present illness Narrative Images from the original note were not included[place] [address] Date of Evaluation: 12/26/2023 Patient Name: Keagan Alicia : 2000 Keagan Alicia is a 23 year old female who presents for wellness exam. I reviewed past medical, surgical, social, and family histories today and updated chart. Allergies, chronic medications, and supplements were also reviewed. PMH of SVT, PE, anxiety, and depression. She developed a PE after cholecystectomy in June. She was started on Eliquis (for total of 3 months). She then developed SVT which ultimately required an ablation in September. She reports she still has palpitations and had an episode a few weeks ago where her heart was racing for a few minutes. She will still get lightheaded on occasion. She is currently on Metoprolol 12.5 mg BID. This makes her fatigued. She also developed heavy uterine bleeding while on the Eliquis and had an IUD placed in June. She then had her IUD removed in August due to it being malpositioned and causing pain. She is not currently on control. Exercise: Patient does not have an exercise routine. 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 Weight Trend: Last 2 Encounter Wt Readings: Date: Wt: 12/26/2023 56.2 kg (124 lb) 11/24/2023 54.4 kg (120 lb) Eating Habits: Patient does maintain healthy eating habits. Types of food appropriate diet Caffeine- Rare sweet tea use Drinks mostly water all day Tobacco Use: Vaping nicotine 5% Alcohol Use: On occasion She is no longer smoking marijuana Active Problem List/Chronic Problems There are no active hospital problems to display for this patient. Health Maintenance Cervical Cancer Screening Never done- Will schedule with gynecology Review of Systems Constitutional: Positive for fatigue (on BB). Negative for appetite change, chills, diaphoresis, fever and unexpected weight change. HENT: Positive for congestion, ear pain, rhinorrhea and sore throat. Negative for sinus pressure and sinus pain. Eyes: Negative. Respiratory: Positive for shortness of breath (with exertion). Negative for cough, chest tightness and wheezing. Cardiovascular: Positive for palpitations. Negative for chest pain and leg swelling. Gastrointestinal: Negative for abdominal pain, constipation, diarrhea, nausea and vomiting. Endocrine: Negative. Genitourinary: Negative for dysuria, frequency, menstrual problem and urgency. Musculoskeletal: Negative for arthralgias, back pain, gait problem and joint swelling. Skin: Negative. Allergic/Immunologic: Negative. Neurological: Positive for dizziness and light-headedness. Negative for tremors, seizures, syncope, weakness and headaches. Hematological: Negative. Psychiatric/Behavioral: Negative. PAIN: Negative for pain, history of chronic pain, or current treatment for a chronic pain condition. ALLERGIES Allergen Reactions Latex Itching colestipol (COLESTID) 1 gram tablet Take 1 tablet by mouth two times a day. ondansetron (ZOFRAN) 4 mg tablet Take 1 tablet by mouth every 6 hours as needed for nausea/vomiting. metoprolol tartrate, short acting, (LOPRESSOR) 25 mg tablet Take 0.5 tablets by mouth two times a day. PAST MEDICAL HISTORY Diagnosis Date Anemia Chronic tonsillitis Depression 10/08/2016 Gall stone 07/2022 cholecystectomy after delivery GERD (gastroesophageal reflux disease) Hemorrhoids History of back problems Kidney stones Paroxysmal SVT (supraventricular tachycardia) (HCC) Postoperative pulmonary embolism (HCC) 06/2023 Psychiatric disorder depression, anxiety and PTSD PAST SURGICAL HISTORY Procedure Laterality Date CHOLECYSTECTOMY HX 06/17/2023 [facility] IUD REMOVAL 09/15/2023 PT ED HEART AND VASCULAR 10/03/2023 TONSILLECTOMY HX FAMILY HISTORY Problem Relation Age of Onset other (migraines) Mother None Father Ovarian cancer Maternal Grandmother Anesthesia Problems No Family History Last 3 Encounter BP Readings: Date: BP: 12/26/2023 122/62 11/24/2023 118/64 09/29/2023 100/62 BP 122/62 Pulse 52 Temp 98 Resp 16 Ht 5' 3 (1.60m) Wt 124 lb (56.2kg) SpO2 100% LMP 11/18/2023 BMI 21.97 kg/(m^2). Physical Exam Vitals and nursing note reviewed. Constitutional: Appearance: Normal appearance. She is not ill-appearing. HENT: Head: Normocephalic. Right Ear: Tympanic membrane, ear canal and external ear normal. Left Ear: Tympanic membrane, ear canal and external ear normal. Nose: Congestion present. No rhinorrhea. Mouth/Throat: Mouth: Mucous membranes are moist. Pharynx: Oropharynx is clear. No oropharyngeal exudate or posterior oropharyngeal erythema. Eyes: Conjunctiva/sclera: Conjunctivae normal. Pupils: Pupils are equal, round, and reactive to light. Cardiovascular: Rate and Rhythm: Normal rate and regular rhythm. Pulses: Normal pulses. Heart sounds: Normal heart sounds, S1 normal and S2 normal. Pulmonary: Effort: Pulmonary effort is normal. Breath sounds: Normal breath sounds and air entry. Abdominal: General: Bowel sounds are normal. There is no distension. Palpations: Abdomen is soft. Tenderness: There is abdominal tenderness in the right lower quadrant. There is no guarding. Musculoskeletal: Cervical back: Normal range of motion and neck supple. Right lower leg: No edema. Left lower leg: No edema. Lymphadenopathy: Cervical: No cervical adenopathy. Skin: General: Skin is warm and dry. Neurological: General: No focal deficit present. Mental Status: She is alert and oriented to person, place, and time. Cranial Nerves: Cranial nerves 2-12 are intact. Psychiatric: Mood and Affect: Mood normal. Behavior: Behavior normal. Behavior is cooperative. Cognition and Memory: Cognition normal. Reviewed labs from September completed at outside facility. ASSESSMENT / PLAN: 1. Well adult exam - ICD9: V70.0, ICD10: Z00.00 (primary diagnosis) - Counseled on healthy diet and regular exercise - Smoking cessation encouraged; discussed risks to health and quitting strategies. Patient is contemplative - Discussed safe sex practices and avoidance of STIs - Follow up for annual exam in one year 2. Paroxysmal SVT (supraventricular tachycardia) (HCC) - ICD9: 427.0, ICD10: I47.10 - Follow up with EP. She is inquiring about only taking the medication once a day but explained why she has to take it twice due to it being short acting formulation. - METOPROLOL TARTRATE 25 MG TABLET 3. Palpitations - ICD9: 785.1, ICD10: R00.2 - METOPROLOL TARTRATE 25 MG TABLET Discussed health maintenance, including regular aerobic exercise, low fat diet, and periodic exams. Return in about 1 year (around 12/25/2024) for well adult exam. Rachell Amador APRN.DOCTOR ASSISTANT documented in this encounter [facility] 12-10-2023 History of Present illness Narrative Images from the original note were not included. Chief complaint: Chief Complaint Patient presents with 3 month f/u History of Present Illness Keagan Alicia is a 23 y.o. year old female with history of smoking, SVT, and recent low risk PE during hospitalization for cholecystitis who is presenting for cardiovascular follow-up. Since last visit patient had IUD removed. She also underwent AVNRT ablation. She reports to be doing well. She denies chest pain, shortness of breath, palpitations or syncope. She had APLA testing and factor V testing that was negative Social History Tobacco Use Smoking status: Former Types: Cigarettes Smokeless tobacco: Current Tobacco comments: vape Vaping Use Vaping status: Every Day Substances: Nicotine, THC, CBD Substance Use Topics Alcohol use: Not Currently Drug use: Not Currently Types: Marijuana Outpatient Medications: Current Outpatient Medications Medication Instructions apixaban (ELIQUIS) 5 mg, oral, 2 times daily metoprolol tartrate (LOPRESSOR) 12.5 mg, oral, Daily norethindrone (AYGESTIN) 5 mg, Daily RT Vitals: Vitals: 12/10/23 1320 BP: 92/60 Pulse: 73 SpO2: 97% Physical Exam: General: NAD, well-appearing HEENT: moist mucous membranes, no jaundice Neck: No JVD, no carotid bruit Lungs: CTA asha, no wheezing or rales Cardiac: RRR, no murmurs Abdomen: soft, non-tender, non-distended Extremities: 2+ radial pulses, no edema Skin: warm, dry, no wound Neurologic: AAOx3, no focal deficits Reviewed Study(s): Outside echocardiogram from [facility] 08/25/2023 CONCLUSIONS: - Exam indication: Palpitations - The left ventricle is normal in size. There is no left ventricular hypertrophy. Left ventricular systolic function is normal. EF = 55 5% (visual est.) - The right ventricle is normal in size. Right ventricular systolic function is low normal. RV systolic tissue Doppler velocity is 14.5 cm/s. - There are no significant valvular abnormalities. - There is no pericardial effusion. - The patient has not had a prior echocardiographic exam for comparison. Assessment/Plan #Incidental low risk subsegmental pulmonary embolism -Pulmonary embolism in the setting of acute illness with cholecystitis and surgery on 06/2023, in the background of a history of smoking. Likely provoked event?. No DVT on ultrasound -Since then she had AVNRT ablation and IUD removal -She is doing well off anticoagulation - For now I think it is reasonable to just monitor clinically off anticoagulation -Discussed with patient high recent areas that would warrant potentially prophylactic anticoagulation given her history of VTE. -Recommended to switch to progesterone only contraceptive, to avoid estrogen which can be prothrombotic -Her limited hypercoagulable testing was negative. -Follow-up with me as needed Norbert Fernandes MD [facility] Interventional Cardiology Endovascular Interventions [email or web address] Disclaimer: This note was dictated by speech recognition, and every effort has been made to prevent any error in scrap stripper hand, however minor errors may be present documented in this encounter [facility] Work Phone: 11-24-2023 Note HNO ID: [id number] Author: SANDRA COLE APRN.DOCTOR ASSISTANT Service: ? Author Type: Nurse Practitioner Type: Progress Notes Filed: 11/24/2023 13:09 Note Text: Patient declined quality head. Keagan Alicia is a 23 year old female who presents for problem visit vaginal discharge, odor for 2 month(s). HPI: pt states that she has had thicker white discharge w/ odor and some burning off/on over the past 2 months. She tried OTC yeast treatment with no resolve. OB History T1 L2 SAB3 IAB0 Ectopic0 Multiple0 Live Births2 Comment: No DANDCs for missed abs Compensation Expert History LMP: 09/15/2023 (Exact Date), Having periods Age at Menarche: Age at First : Age at Menopause: Compensation Expert History Comments: Sexual Activity: Yes; Male Contraception: Pill PAST MEDICAL HISTORY Diagnosis Date Anemia Chronic tonsillitis Depression 10/08/2016 Gall stone 07/2022 cholecystectomy after delivery GERD (gastroesophageal reflux disease) Hemorrhoids History of back problems Kidney stones Paroxysmal SVT (supraventricular tachycardia) (HCC) Postoperative pulmonary embolism (HCC) 06/2023 Psychiatric disorder depression, anxiety and PTSD PAST SURGICAL HISTORY Procedure Laterality Date CHOLECYSTECTOMY HX 06/17/2023 [facility] IUD REMOVAL 09/15/2023 TONSILLECTOMY HX FAMILY HISTORY Problem Relation Age of Onset other (migraines) Mother None Father Ovarian cancer Maternal Grandmother Anesthesia Problems No Family History Social History Tobacco Use Smoking status: Never Passive exposure: Yes Smokeless tobacco: Never Tobacco comments: Vapes Vaping Use Vaping status: current everyday user Substances: Nicotine, Flavoring Devices: Disposable Substance Use Topics Alcohol use: Not Currently Drug use: Yes Frequency: 2.0 times per week Types: Marijuana Comment: smoking Current Outpatient Medications Medication Sig colestipol (COLESTID) 1 gram tablet Take 1 tablet by mouth two times a day. norethindrone (AYGESTIN) 5 mg tablet TAKE 1 TABLET BY MOUTH EVERY DAY metoprolol tartrate, short acting, (LOPRESSOR) 25 mg tablet take 1 tablet by mouth twice a day as needed (Patient not taking: Reported on 09/29/2023) mirtazapine (REMERON) 15 mg tablet TAKE 1 TABLET BY MOUTH EVERYDAY AT BEDTIME gabapentin (NEURONTIN) 300 mg capsule take one tablet po bid and 2 tablets po qhs ondansetron (ZOFRAN) 4 mg tablet Take 1 tablet by mouth every 6 hours as needed for nausea/vomiting. No current facility-administered medications for this visit. Allergies As of Date: 11/24/2023 Allergen Noted Reaction LATEX 07/02/2023 Itching Fully Assessed 09/29/2023 REVIEW OF SYSTEMS Bladder: No dysuria, gross hematuria, urinary frequency, urinary urgency, or incontinence. Expanded ROS: N/A Allergies and current medication updated:Yes SENSITIVE EXAM: The sensitive examination was discussed with the Patient or Patient's Authorized Class B Truck Driver. As applicable, any other physician, advance practice provider, medical student, or other health professional student that will be observing or involved in the sensitive examination for educational or training purposes was discussed with the Patient or Authorized Class B Truck Driver. The Patient or Authorized Class B Truck Driver has agreed to proceed with the sensitive examination. (Sensitive examination includes inspection and/or palpation of the breasts, pelvis, prostate and anorectal regions). EXAM: LMP 09/15/2023 GENERAL: pleasant, female in no apparent distress HEENT: Normocephalic, atraumatic, mucus membranes moist, and no lesions CHEST: Normal inspiratory effort ABDOMEN: soft, non-tender, and no masses PELVIC: external genitalia normal, normal Bartholin's glands, urethra, [place]'s glands, no vulvar lesions, no cervical lesions, good vaginal support, physiologic discharge present, normal appearing perineal body and perianal region BIMANUAL: deferred NEURO: alert and oriented x3,exam grossly non-focal EXTREMITIES: normal ASSESSMENT/PLAN: 1. Vaginal discharge - ICD9: 623.5, ICD10: N89.8 Will notify patient of test results. - ALMITA/TRICHOMONAS NAAT - BACTERIAL VAGINOSIS NAAT - GONORRHEA/CHLAMYDIA NAAT If results are negative recommend vaginal pH shirt operator. Sandra Cole APRN.DOCTOR ASSISTANT Medical Decision Making: Problems: Moderate: New problem with uncertain prognosis Data: Unique test(s) ordered: 3+ Risk: Low: Low risk from testing/treatment Medical Decision Making Level: 4 - Moderate [facility] 11-24-2023 History of Present illness Narrative Patient declined quality head. Keagan Alicia is a 23 year old female who presents for problem visit vaginal discharge, odor for 2 month(s). HPI: pt states that she has had thicker white discharge w/ odor and some burning off/on over the past 2 months. She tried OTC yeast treatment with no resolve. OB History T1 L2 SAB3 IAB0 Ectopic0 Multiple0 Live Births2 Comment: No D&Cs for missed abs Compensation Expert History LMP: 09/15/2023 (Exact Date), Having periods Age at Menarche: Age at First : Age at Menopause: Compensation Expert History Comments: Sexual Activity: Yes; Male Contraception: Pill PAST MEDICAL HISTORY Diagnosis Date Anemia Chronic tonsillitis Depression 10/08/2016 Gall stone 07/2022 cholecystectomy after delivery GERD (gastroesophageal reflux disease) Hemorrhoids History of back problems Kidney stones Paroxysmal SVT (supraventricular tachycardia) (HCC) Postoperative pulmonary embolism (HCC) 06/2023 Psychiatric disorder depression, anxiety and PTSD PAST SURGICAL HISTORY Procedure Laterality Date CHOLECYSTECTOMY HX 06/17/2023 [facility] IUD REMOVAL 09/15/2023 TONSILLECTOMY HX FAMILY HISTORY Problem Relation Age of Onset other (migraines) Mother None Father Ovarian cancer Maternal Grandmother Anesthesia Problems No Family History Social History Tobacco Use Smoking status: Never Passive exposure: Yes Smokeless tobacco: Never Tobacco comments: Vapes Vaping Use Vaping status: current everyday user Substances: Nicotine, Flavoring Devices: Disposable Substance Use Topics Alcohol use: Not Currently Drug use: Yes Frequency: 2.0 times per week Types: Marijuana Comment: smoking Current Outpatient Medications Medication Sig colestipol (COLESTID) 1 gram tablet Take 1 tablet by mouth two times a day. norethindrone (AYGESTIN) 5 mg tablet TAKE 1 TABLET BY MOUTH EVERY DAY metoprolol tartrate, short acting, (LOPRESSOR) 25 mg tablet take 1 tablet by mouth twice a day as needed (Patient not taking: Reported on 09/29/2023) mirtazapine (REMERON) 15 mg tablet TAKE 1 TABLET BY MOUTH EVERYDAY AT BEDTIME gabapentin (NEURONTIN) 300 mg capsule take one tablet po bid and 2 tablets po qhs ondansetron (ZOFRAN) 4 mg tablet Take 1 tablet by mouth every 6 hours as needed for nausea/vomiting. No current facility-administered medications for this visit. Allergies As of Date: 11/24/2023 Allergen Noted Reaction LATEX 07/02/2023 Itching Fully Assessed 09/29/2023 REVIEW OF SYSTEMS Bladder: No dysuria, gross hematuria, urinary frequency, urinary urgency, or incontinence. Expanded ROS: N/A Allergies and current medication updated:Yes SENSITIVE EXAM: The sensitive examination was discussed with the Patient or Patient's Authorized Class B Truck Driver. As applicable, any other physician, advance practice provider, medical student, or other health professional student that will be observing or involved in the sensitive examination for educational or training purposes was discussed with the Patient or Authorized Class B Truck Driver. The Patient or Authorized Class B Truck Driver has agreed to proceed with the sensitive examination. (Sensitive examination includes inspection and/or palpation of the breasts, pelvis, prostate and anorectal regions). EXAM: LMP 09/15/2023 GENERAL: pleasant, female in no apparent distress HEENT: Normocephalic, atraumatic, mucus membranes moist, and no lesions CHEST: Normal inspiratory effort ABDOMEN: soft, non-tender, and no masses PELVIC: external genitalia normal, normal Bartholin's glands, urethra, [place]'s glands, no vulvar lesions, no cervical lesions, good vaginal support, physiologic discharge present, normal appearing perineal body and perianal region BIMANUAL: deferred NEURO: alert and oriented x3,exam grossly non-focal EXTREMITIES: normal ASSESSMENT/PLAN: 1. Vaginal discharge - ICD9: 623.5, ICD10: N89.8 Will notify patient of test results. - ALMITA/TRICHOMONAS NAAT - BACTERIAL VAGINOSIS NAAT - GONORRHEA/CHLAMYDIA NAAT If results are negative recommend vaginal pH shirt operator. Sandra Cole APRN.CNP Medical Decision Making: Problems: Moderate: New problem with uncertain prognosis Data: Unique test(s) ordered: 3+ Risk: Low: Low risk from testing/treatment Medical Decision Making Level: 4 - Moderate documented in this encounter [facility] 10-16-2023 Instructions Faiza Mishra APRN.CNP - 10/16/2023 7:18 AM EDT Thank you for seeing me in clinic today. As we discussed, my recommendations are as follows: 1.colestipol 1 gram twice daily with meals If you have any questions about the above treatment plan, please do not hesitate to call the office or send me a GetLikemindst message. documented in this encounter [facility] 10-16-2023 History and physical note DISTANCE HEALTH VISIT This Team Access Model visit is a virtual encounter. It required patient-provider interaction for the medical decision making as documented below. REASON FOR VISIT: diarrhea HPI: Keagan Alicia is a 23 year old female who presents for diarrhea. She admits to having diarrhea since her cholecystectomy in June. She endorses 3 BMs daily, worse after meals. She was prescribed questran powder but states that she can not tolerate it. Patient denies heartburn, regurgitation, dysphagia, early satiety, nausea, vomiting, abdominal pain, changes in appetite, unintentional weight loss, melena, hematochezia or hematemesis. Past Clinical Work-Up: NO RECENT PROCEDURES EXTERNAL CTAP W IVCON 06/24/2023 Impression Postsurgical changes of recent cholecystectomy. No fluid collection in the surgical bed. No evidence of acute abdominal or pelvic abnormality. CTAP W IVCON 06/22/2023 IMPRESSION: No evidence of an acute intra-abdominal or pelvic process EXTERNAL CTAP W IVCON 06/19/2023 Impression 1. Diffuse infectious colitis from the cecum to rectum most pronounced within the ascending and proximal transverse colon. 2. Moderate amount of free fluid in the dependent pelvic recesses measuring upper limits of normal for simple vs complicated, associated with mild thin peritoneal enhancement, features suggesting an inflammatory component; therefore, the possibility of peritonitis is raised. 3. Trace serosanguineous fluid in the gallbladder fossa without loculation. 4. Small volume pneumoperitoneum, likely relating to recent postoperative status. LABS BASIC METABOLIC PANEL Order: [id number] Component Ref Range & Units 2 wk ago Glucose 74 - 99 mg/dL 84 Sodium 136 - 145 mmol/L 137 Potassium 3.5 - 5.3 mmol/L 4.2 Chloride 98 - 107 mmol/L 104 Bicarbonate 21 - 32 mmol/L 26 Anion Gap 10 - 20 mmol/L 11 Urea Nitrogen 6 - 23 mg/dL 14 Creatinine 0.50 - 1.05 mg/dL 0.68 eGFR >60 mL/min/1.73m*2 >90 Comment: Calculations of estimated GFR are performed using the 2020 CKD-EPI Study Refit equation without the race variable for the IDMS-Traceable creatinine methods. https://jasn.asnjournals.org/cont ent/early//ASN.78112752 88 Calcium 8.6 - 10.3 mg/dL 9.2 ntains abnormal data COMPLETE BLOOD COUNT Order: [id number] Component Ref Range & Units 2 wk ago WBC 4.4 - 11.3 x10*3/uL 6.9 nRBC 0.0 - 0.0 /100 WBCs 0.0 RBC 4.00 - 5.20 x10*6/uL 4.65 Hemoglobin 12.0 - 16.0 g/dL 12.9 Hematocrit 36.0 - 46.0 % 41.6 MCV 80 - 100 fL 90 MCH 26.0 - 34.0 pg 27.7 MCHC 32.0 - 36.0 g/dL 31.0 Low RDW 11.5 - 14.5 % 13.2 Platelets 150 - 450 x10*3/uL 240 Latest Ref Rn 09/01/2023 09/18/2023 WBC 3.70 - 11.00 k/uL 3.55 (L) 4.15 RBC 3.90 - 5.20 m/uL 4.77 4.77 Hemoglobin 11.5 - 15.5 g/dL 13.5 13.5 Hematocrit 36.0 - 46.0 % 41.6 41.3 MCV 80.0 - 100.0 fL 87.2 86.6 MCH 26.0 - 34.0 pg 28.3 28.3 MCHC 30.5 - 36.0 g/dL 32.5 32.7 RDW-CV 11.5 - 15.0 % 13.6 13.3 Platelet Count 150 - 400 k/uL 181 188 MPV 9.0 - 12.7 fL 11.9 11.9 Neut% % 46.7 Abs Neut (ANC) 1.45 - 7.50 k/uL 1.66 Lymph% % 41.7 Abs Lymph 1.00 - 4.00 k/uL 1.48 [place]% % 10.7 Abs [place] <0.87 k/uL 0.38 Eosin% % 0.3 Abs Eosin <0.46 k/uL <0.03 Baso% % 0.6 Abs Baso <0.11 k/uL <0.03 Immature Gran % % 0.0 IMMATURE GRANS (ABS) <0.10 k/uL <0.03 NRBC /100 WBC 0.0 Absolute nRBC <0.01 k/uL <0.01 <0.01 DTYPE Auto Glucose 74 - 99 mg/dL 92 BUN 7 - 21 mg/dL 9 Creatinine 0.58 - 0.96 mg/dL 0.75 Sodium 136 - 144 mmol/L 137 Potassium 3.7 - 5.1 mmol/L 4.4 Chloride 98 - 107 mmol/L 104 CO2 22 - 30 mmol/L 25 Anion Gap 8 - 15 mmol/L 8 Calcium 8.5 - 10.2 mg/dL 8.8 eGFR >=60 mL/min/1.73m 117 Legend: (L) Low ALLERGIES Allergen Reactions Latex Itching PAST MEDICAL HISTORY No date: Anemia No date: Chronic tonsillitis 10/08/2016: Depression 07/2022: Gall stone Comment: cholecystectomy after delivery No date: GERD (gastroesophageal reflux disease) No date: Hemorrhoids No date: History of back problems No date: Kidney stones No date: Paroxysmal SVT (supraventricular tachycardia) ([facility]) 06/2023: Postoperative pulmonary embolism ([facility]) No date: Psychiatric disorder Comment: depression, anxiety and PTSD PAST SURGICAL HISTORY 06/17/2023: CHOLECYSTECTOMY HX Comment: [facility] 09/15/2023: IUD REMOVAL No date: TONSILLECTOMY HX FAMILY HISTORY Problem Relation Age of Onset other (migraines) Mother None Father Ovarian cancer Maternal Grandmother Anesthesia Problems No Family History Social History Tobacco Use Smoking status: Never Passive exposure: Yes Smokeless tobacco: Never Tobacco comments: Vapes Vaping Use Vaping status: current everyday user Substances: Nicotine, Flavoring Devices: Disposable Substance Use Topics Alcohol use: Not Currently Drug use: Yes Frequency: 2.0 times per week Types: Marijuana Comment: smoking Current Outpatient Medications Medication Sig cholestyramine (QUESTRAN) 4 gram packet Take 1 Packet by mouth three times a day with meals. norethindrone (AYGESTIN) 5 mg tablet TAKE 1 TABLET BY MOUTH EVERY DAY metoprolol tartrate, short acting, (LOPRESSOR) 25 mg tablet take 1 tablet by mouth twice a day as needed (Patient not taking: Reported on 09/29/2023) mirtazapine (REMERON) 15 mg tablet TAKE 1 TABLET BY MOUTH EVERYDAY AT BEDTIME gabapentin (NEURONTIN) 300 mg capsule take one tablet po bid and 2 tablets po qhs ondansetron (ZOFRAN) 4 mg tablet Take 1 tablet by mouth every 6 hours as needed for nausea/vomiting. No current facility-administered medications for this visit. I have confirmed and edited, if necessary, the PFSH obtained by others. REVIEW OF SYSTEMS: GENERAL: No weight loss, malaise or fevers RESPIRATORY: Negative for cough, hemoptysis, wheezing, dyspnea or shortness of breath CARDIOVASCULAR: Negative for chest pain, leg swelling, or palpitations GI: See HPI PHYSICAL EXAM: General - Normal, healthy, cooperative, in no acute distress Able to interact verbally by video conference Psych - ORIENTATION: normal to time place, person and situation Mood/Affect: AFFECT AND MOOD: Normal Head/Neuro - Normal size and shape Facial appearance normal Pulmonary - respiratory effort normal Cardiovascular - patient describes extremities normal, warm, no cyanosis,no clubbing, and no edema Abdominal - Not performed Skin - abnormal lesions not visualized Motor - patient seen sitting with Normal appearing strength and coordination ASSESSMENT/PLAN: Ms. Alicia is a 23 year old female with a history of depression, STEPHON, PTSD, and PE presents for diarrhea. She admits to having diarrhea since her cholecystectomy in June. She endorses 3 BMs daily, worse after meals. She was prescribed questran powder but states that she can not tolerate it.I recommend colestipol 1 gram BID with meals. The patient is agreeable with the above plan and encouraged to reach out with questions and concerns. 1. Diarrhea due to malabsorption - ICD9: 579.9, 787.91, ICD10: K90.9, R19.7 (primary diagnosis) - COLESTIPOL 1 GRAM TABLET 2. Status post laparoscopic cholecystectomy - ICD9: V45.89, ICD10: Z90.49 - COLESTIPOL 1 GRAM TABLET I spent more than 30 minutes [id number] with the patient and over half the time was devoted to counseling and/or coordination of care. This note was dictated using [employer] speech recognition software and may contain some errors that were a result of the program not accurately transcribing what was dictated. I have communicated my name and active licensure. The patient's identity and physical location were verified at the time of this visit. Either the patient or their legal entry level marketing representative has been informed of the risks and benefits of -- and alternatives to -- treatment through a remote evaluation and consents to proceed with the evaluation remotely. Faiza Mishra APRN.CNP [facility] 10-16-2023 History and physical note DISTANCE HEALTH VISIT This Team Access Model visit is a virtual encounter. It required patient-provider interaction for the medical decision making as documented below. REASON FOR VISIT: diarrhea HPI: Keagan Alicia is a 23 year old female who presents for diarrhea. She admits to having diarrhea since her cholecystectomy in June. She endorses 3 BMs daily, worse after meals. She was prescribed questran powder but states that she can not tolerate it. Patient denies heartburn, regurgitation, dysphagia, early satiety, nausea, vomiting, abdominal pain, changes in appetite, unintentional weight loss, melena, hematochezia or hematemesis. Past Clinical Work-Up: NO RECENT PROCEDURES EXTERNAL CTAP W IVCON 06/24/2023 Impression Postsurgical changes of recent cholecystectomy. No fluid collection in the surgical bed. No evidence of acute abdominal or pelvic abnormality. CTAP W IVCON 06/22/2023 IMPRESSION: No evidence of an acute intra-abdominal or pelvic process EXTERNAL CTAP W IVCON 06/19/2023 Impression 1. Diffuse infectious colitis from the cecum to rectum most pronounced within the ascending and proximal transverse colon. 2. Moderate amount of free fluid in the dependent pelvic recesses measuring upper limits of normal for simple vs complicated, associated with mild thin peritoneal enhancement, features suggesting an inflammatory component; therefore, the possibility of peritonitis is raised. 3. Trace serosanguineous fluid in the gallbladder fossa without loculation. 4. Small volume pneumoperitoneum, likely relating to recent postoperative status. LABS BASIC METABOLIC PANEL Order: [id number] Component Ref Range & Units 2 wk ago Glucose 74 - 99 mg/dL 84 Sodium 136 - 145 mmol/L 137 Potassium 3.5 - 5.3 mmol/L 4.2 Chloride 98 - 107 mmol/L 104 Bicarbonate 21 - 32 mmol/L 26 Anion Gap 10 - 20 mmol/L 11 Urea Nitrogen 6 - 23 mg/dL 14 Creatinine 0.50 - 1.05 mg/dL 0.68 eGFR >60 mL/min/1.73m*2 >90 Comment: Calculations of estimated GFR are performed using the 2020 CKD-EPI Study Refit equation without the race variable for the IDMS-Traceable creatinine methods. https://jasn.asnjournals.org/cont ent/early//ASN.38705005 88 Calcium 8.6 - 10.3 mg/dL 9.2 ntains abnormal data COMPLETE BLOOD COUNT Order: [id number] Component Ref Range & Units 2 wk ago WBC 4.4 - 11.3 x10*3/uL 6.9 nRBC 0.0 - 0.0 /100 WBCs 0.0 RBC 4.00 - 5.20 x10*6/uL 4.65 Hemoglobin 12.0 - 16.0 g/dL 12.9 Hematocrit 36.0 - 46.0 % 41.6 MCV 80 - 100 fL 90 MCH 26.0 - 34.0 pg 27.7 MCHC 32.0 - 36.0 g/dL 31.0 Low RDW 11.5 - 14.5 % 13.2 Platelets 150 - 450 x10*3/uL 240 Latest Ref Rng 09/01/2023 09/18/2023 WBC 3.70 - 11.00 k/uL 3.55 (L) 4.15 RBC 3.90 - 5.20 m/uL 4.77 4.77 Hemoglobin 11.5 - 15.5 g/dL 13.5 13.5 Hematocrit 36.0 - 46.0 % 41.6 41.3 MCV 80.0 - 100.0 fL 87.2 86.6 MCH 26.0 - 34.0 pg 28.3 28.3 MCHC 30.5 - 36.0 g/dL 32.5 32.7 RDW-CV 11.5 - 15.0 % 13.6 13.3 Platelet Count 150 - 400 k/uL 181 188 MPV 9.0 - 12.7 fL 11.9 11.9 Neut% % 46.7 Abs Neut (ANC) 1.45 - 7.50 k/uL 1.66 Lymph% % 41.7 Abs Lymph 1.00 - 4.00 k/uL 1.48 [place]% % 10.7 Abs [place] <0.87 k/uL 0.38 Eosin% % 0.3 Abs Eosin <0.46 k/uL <0.03 Baso% % 0.6 Abs Baso <0.11 k/uL <0.03 Immature Gran % % 0.0 IMMATURE GRANS (ABS) <0.10 k/uL <0.03 NRBC /100 WBC 0.0 Absolute nRBC <0.01 k/uL <0.01 <0.01 DTYPE Auto Glucose 74 - 99 mg/dL 92 BUN 7 - 21 mg/dL 9 Creatinine 0.58 - 0.96 mg/dL 0.75 Sodium 136 - 144 mmol/L 137 Potassium 3.7 - 5.1 mmol/L 4.4 Chloride 98 - 107 mmol/L 104 CO2 22 - 30 mmol/L 25 Anion Gap 8 - 15 mmol/L 8 Calcium 8.5 - 10.2 mg/dL 8.8 eGFR >=60 mL/min/1.73m 117 Legend: (L) Low ALLERGIES Allergen Reactions Latex Itching PAST MEDICAL HISTORY No date: Anemia No date: Chronic tonsillitis 10/08/2016: Depression 07/2022: Gall stone Comment: cholecystectomy after delivery No date: GERD (gastroesophageal reflux disease) No date: Hemorrhoids No date: History of back problems No date: Kidney stones No date: Paroxysmal SVT (supraventricular tachycardia) ([facility]) 06/2023: Postoperative pulmonary embolism ([facility]) No date: Psychiatric disorder Comment: depression, anxiety and PTSD PAST SURGICAL HISTORY 06/17/2023: CHOLECYSTECTOMY HX Comment: [facility] 09/15/2023: IUD REMOVAL No date: TONSILLECTOMY HX FAMILY HISTORY Problem Relation Age of Onset other (migraines) Mother None Father Ovarian cancer Maternal Grandmother Anesthesia Problems No Family History Social History Tobacco Use Smoking status: Never Passive exposure: Yes Smokeless tobacco: Never Tobacco comments: Vapes Vaping Use Vaping status: current everyday user Substances: Nicotine, Flavoring Devices: Disposable Substance Use Topics Alcohol use: Not Currently Drug use: Yes Frequency: 2.0 times per week Types: Marijuana Comment: smoking Current Outpatient Medications Medication Sig cholestyramine (QUESTRAN) 4 gram packet Take 1 Packet by mouth three times a day with meals. norethindrone (AYGESTIN) 5 mg tablet TAKE 1 TABLET BY MOUTH EVERY DAY metoprolol tartrate, short acting, (LOPRESSOR) 25 mg tablet take 1 tablet by mouth twice a day as needed (Patient not taking: Reported on 09/29/2023) mirtazapine (REMERON) 15 mg tablet TAKE 1 TABLET BY MOUTH EVERYDAY AT BEDTIME gabapentin (NEURONTIN) 300 mg capsule take one tablet po bid and 2 tablets po qhs ondansetron (ZOFRAN) 4 mg tablet Take 1 tablet by mouth every 6 hours as needed for nausea/vomiting. No current facility-administered medications for this visit. I have confirmed and edited, if necessary, the PFSH obtained by others. REVIEW OF SYSTEMS: GENERAL: No weight loss, malaise or fevers RESPIRATORY: Negative for cough, hemoptysis, wheezing, dyspnea or shortness of breath CARDIOVASCULAR: Negative for chest pain, leg swelling, or palpitations GI: See HPI PHYSICAL EXAM: General - Normal, healthy, cooperative, in no acute distress Able to interact verbally by video conference Psych - ORIENTATION: normal to time place, person and situation Mood/Affect: AFFECT AND MOOD: Normal Head/Neuro - Normal size and shape Facial appearance normal Pulmonary - respiratory effort normal Cardiovascular - patient describes extremities normal, warm, no cyanosis,no clubbing, and no edema Abdominal - Not performed Skin - abnormal lesions not visualized Motor - patient seen sitting with Normal appearing strength and coordination ASSESSMENT/PLAN: Ms. Alicia is a 23 year old female with a history of depression, STEPHON, PTSD, and PE presents for diarrhea. She admits to having diarrhea since her cholecystectomy in June. She endorses 3 BMs daily, worse after meals. She was prescribed questran powder but states that she can not tolerate it.I recommend colestipol 1 gram BID with meals. The patient is agreeable with the above plan and encouraged to reach out with questions and concerns. 1. Diarrhea due to malabsorption - ICD9: 579.9, 787.91, ICD10: K90.9, R19.7 (primary diagnosis) - COLESTIPOL 1 GRAM TABLET 2. Status post laparoscopic cholecystectomy - ICD9: V45.89, ICD10: Z90.49 - COLESTIPOL 1 GRAM TABLET I spent more than 30 minutes [id number] with the patient and over half the time was devoted to counseling and/or coordination of care. This note was dictated using [employer] speech recognition software and may contain some errors that were a result of the program not accurately transcribing what was dictated. I have communicated my name and active licensure. The patient's identity and physical location were verified at the time of this visit. Either the patient or their legal entry level marketing representative has been informed of the risks and benefits of -- and alternatives to -- treatment through a remote evaluation and consents to proceed with the evaluation remotely. Faiza Mishra APRN.CNP documented in this encounter [facility] 10-03-2023 Nurse Note RN notified Dr. Hugo patient states pain has improved to 7/10, resting comfortably, vitals stable, groin site stable, thigh soft and nontender, per MD pt ok to go home. Discharge instructions reviewed again, peripheral IV removed, belongings returned, patient meets discharge criteria, pt discharge via wheelchair by laboratory chemical assistant RN [facility] Work Phone: 10-03-2023 Nurse Note RN notified Dr. Hugo patient states pain has improved to 7/10, resting comfortably, vitals stable, groin site stable, thigh soft and nontender, per MD pt ok to go home. Discharge instructions reviewed again, peripheral IV removed, belongings returned, patient meets discharge criteria, pt discharge via wheelchair by laboratory chemical assistant RN RN reviewing discharge instructions with patient when she stated she is having 10/10 right upper to mid thigh pain starting distal to incision site and spreading to mid thigh. Upon assessment right site stable, without noted hematoma or bruising, soft and pain did not increase on palpation. BL groin sites are equal and BL thigh size symmetrical and soft upon palpation. Movement and sensation WDL, distal pulses are palpable and coloring normal. Blood sugar 156, BP 110/61, HR 86. Assessment otherwise unremarkable. Tramadol administered per orders. RN called Dr. Hugo who stated continue to monitor patient at this time. RN called Dr. Hugo to clarify eliquis orders for discharge. Per Dr. Hugo pt WILL NOT resume eliquis upon discharge, patient notified and verbalized understanding. POCT test negative documented in this encounter [facility] Work Phone: 10-03-2023 Nurse Note RN reviewing discharge instructions with patient when she stated she is having 10/10 right upper to mid thigh pain starting distal to incision site and spreading to mid thigh. Upon assessment right site stable, without noted hematoma or bruising, soft and pain did not increase on palpation. BL groin sites are equal and BL thigh size symmetrical and soft upon palpation. Movement and sensation WDL, distal pulses are palpable and coloring normal. Blood sugar 156, BP 110/61, HR 86. Assessment otherwise unremarkable. Tramadol administered per orders. RN called Dr. Hugo who stated continue to monitor patient at this time. [facility] Work Phone: 10-03-2023 Nurse Note RN called Dr. Hugo to clarify eliquis orders for discharge. Per Dr. Hugo pt WILL NOT resume eliquis upon discharge, patient notified and verbalized understanding. [facility] Work Phone: 10-03-2023 Hospital Discharge instructions Princess Marc RN - 10/03/2023 2:51 PM EDT FOR SUDDEN AND SEVERE CHEST PAIN, SHORTNESS OF BREATH, EXCESSIVE BLEEDING, SIGNS OF STROKE, OR CHANGES IN MENTAL STATUS YOU SHOULD CALL 911 IMMEDIATELY.\ 1.) GENERAL ANESTHESIA OR SEDATION -The anesthetics, sedatives or pain medicine which you were given, will be acting in your body for approximately 24 hours and you may feel a little sleepy. This feeling will slowly wear off over the next 24 hours therefore: A. DO NOT drive a car, operate machinery or power tools. B. DO NOT drink any alcoholic drinks or take any non-prescriptive medications that contain alcohol. C. DO NOT make any important decisions or sign any legal documents. 2.) ACTIVITY A. You are advised to go directly home from the hospital. B. DO NOT lift anything heavier than 10 pounds for 1 week, to allow time for your groin to properly heal. No vigorous or strenuous physical activity for 1 week. C. Keep stair climbing to a minimum the first day after your procedure. D. No sexual activities for 24 hours after your procedure. 3.) DIET -You may resume your normal diet. However, it is better to start with liquids and gradually work up to solid foods. 4.) GROIN CARE A. We will apply an adhesive bandage to your groin before you go home. Keep this bandage clean and dry for 24 hours. B. You may remove the bandage in 24 hours. You may then shower, gently washing the site with soap and water, only and patting dry. C. DO NOT go swimming, soak in a bathtub or hot tub for 1 week to help prevent infection. Do not use lotions, ointments or powders on your groin for one week. You can cover the puncture site with a Band-Aid as needed. D. Your groin should remain soft, clean and dry. It is normal to experience tenderness and bruising at the site. Also, a pea sized lump may be present. That should go away on its own within 1 week. E. Watch for signs and symptoms of infection: fever (greater than 101F), redness, drainage, increasing tenderness. Also, watch for bruising that spreads down your leg or a lump at the puncture site that grows or is larger than a pea. 5.) SPECIFIC CONCERNS TO WATCH FOR: A. If you start bleeding from your groin, lay down and have someone apply firm pressure just above the puncture site. If bleeding does not stop after 5 minutes of firm pressure or if you cannot control the bleeding, CALL 911. B. If after you are discharged, you develop: difficulty breathing, rash, hives, severe nausea, vomiting, lightheadedness or any signs and symptoms of an infection, please call your doctor and go to the nearest emergency room. 6.) SAFETY -It is recommended that a responsible adult be with you for the first 24 hours. This is for your protection and safety since you may not be as alert as usual. 7.) FOLLOW-UP A. Call your doctor as ordered to schedule a follow-up appointment, usually within one week. FOR SUDDEN AND SEVERE CHEST PAIN, SHORTNESS OF BREATH, EXCESSIVE BLEEDING, SIGNS OF STROKE, OR CHANGES IN MENTAL STATUS YOU SHOULD CALL 911 IMMEDIATELY.\ documented in this encounter [facility] Work Phone: 10-03-2023 Miscellaneous Notes Physician Transition of Care Summary Cardiac Electrophysiology Lab/OR Procedure Date: 10/03/2023 Attending: Nisa Hugo - Primary Resident/Fellow/Other Jazz Musician: Surgeons and Role: * No surgeons found with a matching role * Indications: Pre-op Diagnosis * SVT (supraventricular tachycardia) (CMS-HCC) [I47.10] Post-procedure diagnosis: Post-op Diagnosis * SVT (supraventricular tachycardia) (CMS-HCC) [I47.10] Procedure(s): Ablation SVT [id number] - DC COMPRE EP EVAL ABLTJ 3D MAPG TX SVT Summary: Comprehensive EP study was done and showed Dual AV ever Physiology, h/o SVT - Suggestive of AVNRT, no other SVT or VT inducible 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 Bedrest for 3 hours post sheath removal Resume Metoprolol tartrate with dose of 12.5mg BID. Keflex 500mg BID x 5days Resume rest of home medications Patient Instructions: No driving, alcohol or making legal decisions for 24 hours. Remove band-aid/tegaderm in 1 day. No heavy lifting, strenuous exercise for 1 week Please call our office if you notice any groin discharge or swelling or fever. For cardiology electrophysiology emergencies (such as severe heart racing, bleeding, severe groin pain/swelling, high fever, wound discharge, stroke symptoms, or recent severe chest pain) call Ruby: [phone] For full procedure note/study review please go to Chart review --> Cardiology tab --> Electrophysiology procedure for 10/03/2023 Complications: None Stents/Implants: Implants No implant documentation for this case. Anticoagulation/Antiplatelet Plan: None Estimated Blood Loss: * No values recorded between 07/11/2023 2:17 PM and 07/11/2023 7:50 PM * Anesthesia: General Anesthesia Staff: Anesthesiologist: Bishnu Ross MD MANAGING BROKER: CARO Wang Any Specimen(s) Removed: Order Name Source Comment Collection Info Order Time COAGULATION SCREEN Blood, Venous 10/03/2023 6:33 AM Release result to [facility] Immediate Disposition: Monitor for 2-3hrs post anesthesia and bed rest, and plan for Discharge home 10/03/[address] [facility] Cardiac Electrophysiology Disclaimer: This note was dictated by speech recognition, and every effort has been made to prevent any error in scrap stripper hand, however minor errors may be present documented in this encounter [facility] Work Phone: 10-03-2023 Note Formatting of this n ote is different from the original. Physician Transition of Care Summary Cardiac Electrophysiology Lab/OR Procedure Date: 10/03/2023 Attending: * Ramiro Hugo - Primary Resident/Fellow/Other Jazz Musician: Surgeons and Role: * No surgeons found with a matching role * Indications: Pre-op Diagnosis * SVT (supraventricular tachycardia) (CMS-HCC) [I47.10] Post-procedure diagnosis: Post-op Diagnosis * SVT (supraventricular tachycardia) ([facility]) [I47.10] Procedure(s): Ablation SVT ([id number]) [id number] - DC COMPRE EP EVAL ABLTJ 3D MAPG TX SVT Summary: Comprehensive EP study was done and showed Dual AV ever Physiology, h/o SVT - Suggestive of AVNRT, no other SVT or VT inducible 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 Bedrest for 3 hours post sheath removal Resume Metoprolol tartrate with dose of 12.5mg BID. Keflex 500mg BID x 5days Resume rest of home medications Patient Instructions: No driving, alcohol or making legal decisions for 24 hours. Remove band-aid/tegaderm in 1 day. No heavy lifting, strenuous exercise for 1 week Please call our office if you notice any groin discharge or swelling or fever. For cardiology electrophysiology emergencies (such as severe heart racing, bleeding, severe groin pain/swelling, high fever, wound discharge, stroke symptoms, or recent severe chest pain) call Ruby: [phone] For full procedure note/study review please go to Chart review --> Cardiology tab --> Electrophysiology procedure for 10/03/2023 Complications: None Stents/Implants: Implants No implant documentation for this case. Anticoagulation/Antiplatelet Plan: None Estimated Blood Loss: * No values recorded between 07/11/2023 2:17 PM and 07/11/2023 7:50 PM * Anesthesia: General Anesthesia Staff: Anesthesiologist: Bishnu Ross MD MANAGING BROKER: CARO Wang Any Specimen(s) Removed: Order Name Source Comment Collection Info Order Time COAGULATION SCREEN Blood, Venous 10/03/2023 6:33 AM Release result to [facility] Immediate Disposition: Monitor for 2-3hrs post anesthesia and bed rest, and plan for Discharge home 10/03/[address] [facility] Cardiac Electrophysiology Disclaimer: This note was dictated by speech recognition, and every effort has been made to prevent any error in scrap stripper hand, however minor errors may be present [facility] Work Phone: 10-03-2023 History and physical note History Of Present Illness Keagan Alicia is a 23 y.o. female presenting with h/o PE (likely provoked secondary to cholecystitis and tobacco use), SVT presenting today for EP study and ablation Past Medical History Past Medical History: Diagnosis Date Anxiety Depression PTSD (post-traumatic stress disorder) Surgical History Past Surgical History: Procedure Laterality Date CHOLECYSTECTOMY 06/17/2023 DR LLANES TONSILLECTOMY Social History She reports that she has quit smoking. Her smoking use included cigarettes. She uses smokeless tobacco. She reports that she does not currently use alcohol. She reports that she does not currently use drugs after having used the following drugs: Marijuana. Family History Family History Problem Relation Name Age of Onset Heart attack Paternal Grandfather Allergies Latex Review of Systems Respiratory: Negative for cough and shortness of breath. Cardiovascular: Positive for palpitations. Negative for chest pain and leg swelling. All other systems reviewed and are negative. Physical Exam Vitals reviewed. Constitutional: Appearance: Normal appearance. HENT: Head: Normocephalic. Cardiovascular: Rate and Rhythm: Normal rate and regular rhythm. Pulmonary: Effort: Pulmonary effort is normal. No respiratory distress. Breath sounds: No wheezing. Skin: General: Skin is warm and dry. Capillary Refill: Capillary refill takes less than 2 seconds. Neurological: Mental Status: She is alert. Psychiatric: Mood and Affect: Mood normal. Last Recorded Vitals Blood pressure 102/63, pulse 69, temperature 35.9 C (96.6 F), temperature source Temporal, resp. rate 16, height 1.6 m (5' 3), weight 52.2 kg (115 lb 1.3 oz), SpO2 98%. Assessment/Plan Assessment & Plan SVT (supraventricular tachycardia) ([facility]) Plan for EP study and ablation I spent 20 minutes in the professional and overall care of this patient. Ramiro Hugo MD [facility] Work Phone: 10-03-2023 History and physical note History Of Present Illness Keagan Alicia is a 23 y.o. female presenting with h/o PE (likely provoked secondary to cholecystitis and tobacco use), SVT presenting today for EP study and ablation Past Medical History Past Medical History: Diagnosis Date Anxiety Depression PTSD (post-traumatic stress disorder) Surgical History Past Surgical History: Procedure Laterality Date CHOLECYSTECTOMY 06/17/2023 DR LLANES TONSILLECTOMY Social History She reports that she has quit smoking. Her smoking use included cigarettes. She uses smokeless tobacco. She reports that she does not currently use alcohol. She reports that she does not currently use drugs after having used the following drugs: Marijuana. Family History Family History Problem Relation Name Age of Onset Heart attack Paternal Grandfather Allergies Latex Review of Systems Respiratory: Negative for cough and shortness of breath. Cardiovascular: Positive for palpitations. Negative for chest pain and leg swelling. All other systems reviewed and are negative. Physical Exam Vitals reviewed. Constitutional: Appearance: Normal appearance. HENT: Head: Normocephalic. Cardiovascular: Rate and Rhythm: Normal rate and regular rhythm. Pulmonary: Effort: Pulmonary effort is normal. No respiratory distress. Breath sounds: No wheezing. Skin: General: Skin is warm and dry. Capillary Refill: Capillary refill takes less than 2 seconds. Neurological: Mental Status: She is alert. Psychiatric: Mood and Affect: Mood normal. Last Recorded Vitals Blood pressure 102/63, pulse 69, temperature 35.9 C (96.6 F), temperature source Temporal, resp. rate 16, height 1.6 m (5' 3), weight 52.2 kg (115 lb 1.3 oz), SpO2 98%. Assessment/Plan Assessment & Plan SVT (supraventricular tachycardia) ([facility]) Plan for EP study and ablation I spent 20 minutes in the professional and overall care of this patient. Ramiro Hugo MD documented in this encounter [facility] Work Phone: 10-03-2023 Nurse Note POCT test negative [facility] Work Phone: 09-29-2023 Nurse Note REVIEW OF SYSTEMS: General: The patient NOTES fatigue, NOTES weight loss, NOTES weight gain, NOTES feeling hot, and NOTES feelings of cold. Eyes: The patient denies glaucoma, denies eye injury/surgery, wears glasses or contacts. Ear/Nose/Throat: The patient NOTES allergies, denies hayfever, denies ear infections, and denies bloody noses. Cardiovascular: The patient NOTES chest pain, denies heart disease, denies high blood pressure,denies cardiac stent, denies prior heart attack, NOTES irregular heart beat, denies high cholesterol, denies poor circulation, denies heart failure, other cardiac issues, denies claudication, NOTES cold feet, denies peripheral arterial stent. Respiratory: The patient denies tuberculosis, denies pneumonia, denies frequent cough, NOTES pulmonary embolism, NOTES shortness of breath, and denies coughing up blood. Gastrointestinal: The patient denies difficulty swallowing, NOTES acid reflux, denies ulcers, NOTES vomiting, denies jaundice/hepatitis, NOTES gallbladder problems, denies black or tarry stools, NOTES hemorrhoids, denies bleeding from rectum, denies diverticulitis, NOTES constipation, NOTES diarrhea, denies loss of stool control, and denies hernias. Kidney/Bladder: The patient NOTES kidney stones, NOTES urine infections, and denies bloody urine. Skin: The patient denies a history of skin cancer, denies bleeding/changing moles, and denies a history of skin rash. Neurologic: The patient denies a history of epilepsy/convulsions, denies headaches, NOTES head/spinal injuries, and denies stroke/TIA. Psychiatric: The patient denies psychiatric medications, NOTES depression, and denies voices, denies substance abuse. Endocrine: The patient denies thyroid disorders, denies diabetes, and denies hormonal problems. Hematologic: The patient NOTES a history of bruising, NOTES bleeding, and NOTES anemia, NOTES blood clots. Infections: The patient denies a history of measles and mumps, denies rheumatic fever, and denies sexually transmitted diseases. Musculoskeletal: The patient NOTES back pain/injury, NOTES back problems, denies sciatica, denies knee/foot trouble, denies arthritis, or denies gout. When was patient's last Mammogram screening? N/A Last Colonoscopy: None Seema Bowman RN [facility] 09-29-2023 Nurse Note REVIEW OF SYSTEMS: General: The patient NOTES fatigue, NOTES weight loss, NOTES weight gain, NOTES feeling hot, and NOTES feelings of cold. Eyes: The patient denies glaucoma, denies eye injury/surgery, wears glasses or contacts. Ear/Nose/Throat: The patient NOTES allergies, denies hayfever, denies ear infections, and denies bloody noses. Cardiovascular: The patient NOTES chest pain, denies heart disease, denies high blood pressure,denies cardiac stent, denies prior heart attack, NOTES irregular heart beat, denies high cholesterol, denies poor circulation, denies heart failure, other cardiac issues, denies claudication, NOTES cold feet, denies peripheral arterial stent. Respiratory: The patient denies tuberculosis, denies pneumonia, denies frequent cough, NOTES pulmonary embolism, NOTES shortness of breath, and denies coughing up blood. Gastrointestinal: The patient denies difficulty swallowing, NOTES acid reflux, denies ulcers, NOTES vomiting, denies jaundice/hepatitis, NOTES gallbladder problems, denies black or tarry stools, NOTES hemorrhoids, denies bleeding from rectum, denies diverticulitis, NOTES constipation, NOTES diarrhea, denies loss of stool control, and denies hernias. Kidney/Bladder: The patient NOTES kidney stones, NOTES urine infections, and denies bloody urine. Skin: The patient denies a history of skin cancer, denies bleeding/changing moles, and denies a history of skin rash. Neurologic: The patient denies a history of epilepsy/convulsions, denies headaches, NOTES head/spinal injuries, and denies stroke/TIA. Psychiatric: The patient denies psychiatric medications, NOTES depression, and denies voices, denies substance abuse. Endocrine: The patient denies thyroid disorders, denies diabetes, and denies hormonal problems. Hematologic: The patient NOTES a history of bruising, NOTES bleeding, and NOTES anemia, NOTES blood clots. Infections: The patient denies a history of measles and mumps, denies rheumatic fever, and denies sexually transmitted diseases. Musculoskeletal: The patient NOTES back pain/injury, NOTES back problems, denies sciatica, denies knee/foot trouble, denies arthritis, or denies gout. When was patient's last Mammogram screening? N/A Last Colonoscopy: None Seema Bowman RN documented in this encounter [facility] 09-29-2023 Note HNO ID: [id number] Author: CONOR DUARTE MD Service: ? Author Type: Physician Type: Progress Notes Filed: 09/29/2023 14:54 Note Text: HISTORY AND PHYSICAL Keaganольга Alicia 2000 REFERRING PHYSICIAN: Froilan Chance* CHIEF COMPLAINT: Consult (Diarrhea since her cholecystectomy in June 2023.) HPI: The patient is a 23 year old female with a complaint of diarrhea. Patient had her gallbladder removed and actually in by Dr. Preciado on 06/17/2023. Postoperatively she had some slight constipation while she was on pain medication when she got off her pain medication she immediately had diarrhea. She has between 3 or 4 bowel movements a day mushy in nature and then sometimes just brissa watery. Initially seen by her surgeon who said this was normal however she has not gone back to the surgeon. She was seen by her POWER OPERATOR physician who got her into see me for evaluation of this diarrhea. The patient is being seen by me today at the request of Dr. Louann Barnett for my opinion and advice regarding Functional diarrhea Status post laparoscopic cholecystectomy (primary encounter diagnosis). PAST MEDICAL HISTORY No date: Anemia No date: Chronic tonsillitis 10/08/2016: Depression 07/2022: Gall stone Comment: cholecystectomy after delivery No date: Paroxysmal SVT (supraventricular tachycardia) (HCC) 06/2023: Postoperative pulmonary embolism (HCC) No date: Psychiatric disorder Comment: depression, anxiety and PTSD PAST SURGICAL HISTORY 06/17/2023: CHOLECYSTECTOMY HX Comment: [facility] 09/15/2023: IUD REMOVAL No date: TONSILLECTOMY HX Current Outpatient Medications Medication Sig norethindrone (AYGESTIN) 5 mg tablet TAKE 1 TABLET BY MOUTH EVERY DAY mirtazapine (REMERON) 15 mg tablet TAKE 1 TABLET BY MOUTH EVERYDAY AT BEDTIME ondansetron (ZOFRAN) 4 mg tablet Take 1 tablet by mouth every 6 hours as needed for nausea/vomiting. cholestyramine (QUESTRAN) 4 gram packet Take 1 Packet by mouth three times a day with meals. metoprolol tartrate, short acting, (LOPRESSOR) 25 mg tablet take 1 tablet by mouth twice a day as needed (Patient not taking: Reported on 09/29/2023) gabapentin (NEURONTIN) 300 mg capsule take one tablet po bid and 2 tablets po qhs No current facility-administered medications for this visit. ALLERGIES: Latex PERSONAL HISTORY: Social History Tobacco Use Smoking status: Never Passive exposure: Yes Smokeless tobacco: Never Tobacco comments: Vapes Vaping Use Vaping status: current everyday user Substances: Nicotine, Flavoring Devices: Disposable Substance Use Topics Alcohol use: Not Currently Drug use: Yes Frequency: 2.0 times per week Types: Marijuana Comment: smoking FAMILY HISTORY: FAMILY HISTORY Problem Relation Age of Onset other (migraines) Mother None Father Ovarian cancer Maternal Grandmother Anesthesia Problems No Family History REVIEW OF SYMPTOMS: The review of systems data was entered by the nurse and reviewed by me There are no exam notes on file for this visit. PHYSICAL EXAMINATION: General: The patient is 23 year old female, well nourished, well hydrated in no acute distress. The patient is oriented to time, place, and person. VITALS: Blood pressure 100/62, pulse 88, temperature 36.4 ?C (97.6 ?F), height 160 cm (5' 3), weight 51.9 kg (114 lb 6.4 oz), last menstrual period 09/15/2023, SpO2 100%, not currently . HEENT: Normal cephalic, ataumatic, pupils are equally round, sclera are anicteric, mucous membranes are moist, oropharynx is clear. Neck has no masses, asymmetry or lymphadenopathy. Thyroid is unremarkable. Respiratory: Clear to auscultation and percussion. Normal respiratory excursion and pattern. Cardiac: Examination is regular rate and rhythm. Abdominal exam: Soft, nontender, with no palpable masses. No hepatosplenomegaly. No palpable hernias. Rectal exam: exam deferred Extremities: no clubbing, cyanosis or edema. No adenopathy. Other: LABORATORY VALUES: As Noted RADIOLOGIC STUDIES: As Noted Assessment IMPRESSION: Functional diarrhea Status post laparoscopic cholecystectomy (primary encounter diagnosis) PLAN: Plan will be to start her on some Questran. We are also going to obtain a consult for GI for that they can manage her diarrhea. Diagnoses: (Z90.49) Status post laparoscopic cholecystectomy (primary encounter diagnosis) (K59.1) Functional diarrhea My findings have been communicated to Dr. Louann Barnett via shared medical record. This note will be forwarded to Dr. Rachell Amador APRN.DOCTOR ASSISTANT. Return to Clinic: The patient is instructed to follow-up with me as needed. Conor Duarte III, MD [facility] 09-29-2023 History of Present illness Narrative HISTORY AND PHYSICAL Keagan Padronjuventino 2000 REFERRING PHYSICIAN: Froilan Chance* CHIEF COMPLAINT: Consult (Diarrhea since her cholecystectomy in June 2023.) HPI: The patient is a 23 year old female with a complaint of diarrhea. Patient had her gallbladder removed and actually in by Dr. Preciado on 06/17/2023. Postoperatively she had some slight constipation while she was on pain medication when she got off her pain medication she immediately had diarrhea. She has between 3 or 4 bowel movements a day mushy in nature and then sometimes just brissa watery. Initially seen by her surgeon who said this was normal however she has not gone back to the surgeon. She was seen by her POWER OPERATOR physician who got her into see me for evaluation of this diarrhea. The patient is being seen by me today at the request of Dr. Louann Barnett for my opinion and advice regarding Functional diarrhea Status post laparoscopic cholecystectomy (primary encounter diagnosis). PAST MEDICAL HISTORY No date: Anemia No date: Chronic tonsillitis 10/08/2016: Depression 07/2022: Gall stone Comment: cholecystectomy after delivery No date: Paroxysmal SVT (supraventricular tachycardia) (HCC) 06/2023: Postoperative pulmonary embolism (HCC) No date: Psychiatric disorder Comment: depression, anxiety and PTSD PAST SURGICAL HISTORY 06/17/2023: CHOLECYSTECTOMY HX Comment: [facility] 09/15/2023: IUD REMOVAL No date: TONSILLECTOMY HX Current Outpatient Medications Medication Sig norethindrone (AYGESTIN) 5 mg tablet TAKE 1 TABLET BY MOUTH EVERY DAY mirtazapine (REMERON) 15 mg tablet TAKE 1 TABLET BY MOUTH EVERYDAY AT BEDTIME ondansetron (ZOFRAN) 4 mg tablet Take 1 tablet by mouth every 6 hours as needed for nausea/vomiting. cholestyramine (QUESTRAN) 4 gram packet Take 1 Packet by mouth three times a day with meals. metoprolol tartrate, short acting, (LOPRESSOR) 25 mg tablet take 1 tablet by mouth twice a day as needed (Patient not taking: Reported on 09/29/2023) gabapentin (NEURONTIN) 300 mg capsule take one tablet po bid and 2 tablets po qhs No current facility-administered medications for this visit. ALLERGIES: Latex PERSONAL HISTORY: Social History Tobacco Use Smoking status: Never Passive exposure: Yes Smokeless tobacco: Never Tobacco comments: Vapes Vaping Use Vaping status: current everyday user Substances: Nicotine, Flavoring Devices: Disposable Substance Use Topics Alcohol use: Not Currently Drug use: Yes Frequency: 2.0 times per week Types: Marijuana Comment: smoking FAMILY HISTORY: FAMILY HISTORY Problem Relation Age of Onset other (migraines) Mother None Father Ovarian cancer Maternal Grandmother Anesthesia Problems No Family History REVIEW OF SYMPTOMS: The review of systems data was entered by the nurse and reviewed by me There are no exam notes on file for this visit. PHYSICAL EXAMINATION: General: The patient is 23 year old female, well nourished, well hydrated in no acute distress. The patient is oriented to time, place, and person. VITALS: Blood pressure 100/62, pulse 88, temperature 36.4 C (97.6 F), height 160 cm (5' 3), weight 51.9 kg (114 lb 6.4 oz), last menstrual period 09/15/2023, SpO2 100%, not currently . HEENT: Normal cephalic, ataumatic, pupils are equally round, sclera are anicteric, mucous membranes are moist, oropharynx is clear. Neck has no masses, asymmetry or lymphadenopathy. Thyroid is unremarkable. Respiratory: Clear to auscultation and percussion. Normal respiratory excursion and pattern. Cardiac: Examination is regular rate and rhythm. Abdominal exam: Soft, nontender, with no palpable masses. No hepatosplenomegaly. No palpable hernias. Rectal exam: exam deferred Extremities: no clubbing, cyanosis or edema. No adenopathy. Other: LABORATORY VALUES: As Noted RADIOLOGIC STUDIES: As Noted Assessment IMPRESSION: Functional diarrhea Status post laparoscopic cholecystectomy (primary encounter diagnosis) PLAN: Plan will be to start her on some Questran. We are also going to obtain a consult for GI for that they can manage her diarrhea. Diagnoses: (Z90.49) Status post laparoscopic cholecystectomy (primary encounter diagnosis) (K59.1) Functional diarrhea My findings have been communicated to Dr. Louann Barnett via shared medical record. This note will be forwarded to Dr. Rachell Amador, CHILD CAREGIVER PRIVATE HOME.DOCTOR ASSISTANT. Return to Clinic: The patient is instructed to follow-up with me as needed. Conor Duarte III, MD documented in this encounter [facility] 09-23-2023 Note HNO ID: [id number] Author: MARY JO CHANCE MD Service: ? Author Type: Physician Type: Progress Notes Filed: 09/23/2023 12:02 Note Text: SUBJECTIVE: 23 year old female presents for 1 week post-op exam. Has some nausea. OBJECTIVE: Incision: Dry and intact, without redness- Healing bruising around Umbilicus Abdomen: Soft, Non-tender, and No palpable masses PLAN: Follow with GI for Persistent Diarrhea s/p Removal of gallbladder Has some nausea - continue with zofran PRN Tama diet reviewed I have reviewed and updated past medical and surgical history, medications and allergies. Mary Jo Gee MD [facility] 09-23-2023 History of Present illness Narrative SUBJECTIVE: 23 year old female presents for 1 week post-op exam. Has some nausea. OBJECTIVE: Incision: Dry and intact, without redness- Healing bruising around Umbilicus Abdomen: Soft, Non-tender, and No palpable masses PLAN: Follow with GI for Persistent Diarrhea s/p Removal of gallbladder Has some nausea - continue with zofran PRN Tama diet reviewed I have reviewed and updated past medical and surgical history, medications and allergies. Mary Jo Gee MD documented in this encounter [facility] 09-18-2023 Note HNO ID: [id number] Author: BARBI TIAN APRN.DOCTOR ASSISTANT Service: ? Author Type: Nurse Practitioner Type: Progress Notes Filed: 09/18/2023 10:48 Note Text: Principal Technical Specialist offered: Patient declines. Keagan Alicia is a 22 year old female who presents for problem visit: pain to incision sites and heavy menstrual bleeding. HPI: Keagna had a diagnostic laparoscopy removal of a perforated IUD on 09/15/[address] Barnett. She has pain to the incision sites since. She reports redness to the incision sites. Dr. Barnett prescribed Tylenol 3 on 09/17/23. She is also taking Ibuprofen. Reports pain is a 10/10 and then drops to 8/10 after taking Tylenol 3 or Ibuprofen. Describes it as a stabbing pain. States had a temperature of 99.7 yesterday. Has not had a bowel movement since surgery and reports gas pain. She also reports heavy bleeding, using a pad hourly. History of AUB, which was what the IUD was inserted for. OB History T1 L2 SAB3 IAB0 Ectopic0 Multiple0 Live Births2 Comment: No DANDCs for missed abs Compensation Expert History LMP: 07/14/2023 (Approximate), IUD Age at Menarche: Age at First : Age at Menopause: Compensation Expert History Comments: Sexual Activity: Yes; Male Contraception: No contraception data on record PAST MEDICAL HISTORY No date: Anemia No date: Chronic tonsillitis 10/08/2016: Depression 07/2022: Gall stone Comment: cholecystectomy after delivery No date: Paroxysmal SVT (supraventricular tachycardia) (HCC) 06/2023: Postoperative pulmonary embolism (HCC) No date: Psychiatric disorder Comment: depression, anxiety and PTSD PAST SURGICAL HISTORY 06/17/2023: CHOLECYSTECTOMY HX Comment: [facility] No date: TONSILLECTOMY HX FAMILY HISTORY Problem Relation Age of Onset other (migraines) Mother None Father Ovarian cancer Maternal Grandmother Anesthesia Problems No Family History Social History Tobacco Use Smoking status: Never Passive exposure: Yes Smokeless tobacco: Never Tobacco comments: Vapes Vaping Use Vaping Use: current everyday user Substances: Nicotine Substance Use Topics Alcohol use: No Drug use: Yes Frequency: 2.0 times per week Types: Marijuana Comment: smoking Current Outpatient Medications Medication Sig acetaminophen-codeine (TYLENOL-COD #3) 300-30 mg per tablet Take 1-2 tablets by mouth every 4 hours as needed for up to 3 days. norethindrone (AYGESTIN) 5 mg tablet TAKE 1 TABLET BY MOUTH EVERY DAY apixaban (ELIQUIS) 5 mg tab(s) Take by mouth two times a day. (Patient not taking: Reported on 09/12/2023) metoprolol tartrate, short acting, (LOPRESSOR) 25 mg tablet take 1 tablet by mouth twice a day as needed mirtazapine (REMERON) 15 mg tablet TAKE 1 TABLET BY MOUTH EVERYDAY AT BEDTIME lamoTRIgine (LAMICTAL) 25 mg tablet TAKE ONE TABLET DAILY FOR 2 WEEKS THEN TWO TABLETS DAILY FOR 2 WEEKS THEN TAKE THE 100 MG BY MOUTH DAILY gabapentin (NEURONTIN) 300 mg capsule take one tablet po bid and 2 tablets po qhs ondansetron (ZOFRAN) 4 mg tablet Take 1 tablet by mouth every 6 hours as needed for nausea/vomiting. No current facility-administered medications for this visit. Allergies As of Date: 09/18/2023 Allergen Noted Reaction LATEX 07/02/2023 Itching Fully Assessed 09/15/2023 REVIEW OF SYSTEMS Abdomen: No bloating, early satiety, indigestion, or increased flatulence. No abdominal pain, nausea, vomiting, diarrhea + constipation and pain to incision sites Expanded ROS: POWER OPERATOR: + heavy menstrual bleeding Allergies and current medication updated:Yes EXAM: BP 110/70 Pulse 78 Resp 12 Ht 5' 3 (1.60m) Wt 117 lb (53.1kg) SpO2 98% LMP 09/15/2023 BMI 20.73 kg/(m2). GENERAL: pleasant, female in no apparent distress HEENT: Normocephalic, atraumatic, mucus membranes moist, and no lesions CHEST: Normal inspiratory effort ABDOMEN: soft and no masses + tenderness to palpation in all 4 quadrants, incision sites clean, dry, and intact, yellow ecchymosis to below umbilicus PELVIC: external genitalia normal, normal Bartholin's glands, urethra, [place]'s glands, no vulvar lesions, no cervical lesions, good vaginal support, + menses, normal appearing perineal body and perianal region NEURO: alert and oriented x3,exam grossly non-focal EXTREMITIES: normal ASSESSMENT AND PLAN: 1. Post-op pain - ICD9: 338.18, ICD10: G89.18 (primary diagnosis) - Incisions clean, dry, and intact - Mild ecchymosis to below umbilicus - Recommend continued rotation of Tylenol 3 with Ibuprofen - Discussed pain may be related to constipation and gas - Recommend slow walking and Colace, simethicone - Low suspicion for infection - Case reviewed with DM 2. Constipation, unspecified constipation type - ICD9: 564.00, ICD10: K59.00 - Increase hydration 3. Excessive bleeding in premenopausal period - ICD9: 627.0, ICD10: N92.4 - CBC ordered To go to ER with chest pain, shortness of breath, worsening pain, or worsening (more content not included)... [facility] 09-18-2023 History of Present illness Narrative Principal Technical Specialist offered: Patient declines. Keagan Alicia is a 22 year old female who presents for problem visit: pain to incision sites and heavy menstrual bleeding. HPI: Keagan had a diagnostic laparoscopy removal of a perforated IUD on 09/15/[address] Barnett. She has pain to the incision sites since. She reports redness to the incision sites. Dr. Barnett prescribed Tylenol 3 on 09/17/23. She is also taking Ibuprofen. Reports pain is a 10/10 and then drops to 8/10 after taking Tylenol 3 or Ibuprofen. Describes it as a stabbing pain. States had a temperature of 99.7 yesterday. Has not had a bowel movement since surgery and reports gas pain. She also reports heavy bleeding, using a pad hourly. History of AUB, which was what the IUD was inserted for. OB History T1 L2 SAB3 IAB0 Ectopic0 Multiple0 Live Births2 Comment: No D&Cs for missed abs Compensation Expert History LMP: 07/14/2023 (Approximate), IUD Age at Menarche: Age at First : Age at Menopause: Compensation Expert History Comments: Sexual Activity: Yes; Male Contraception: No contraception data on record PAST MEDICAL HISTORY No date: Anemia No date: Chronic tonsillitis 10/08/2016: Depression 07/2022: Gall stone Comment: cholecystectomy after delivery No date: Paroxysmal SVT (supraventricular tachycardia) (HCC) 06/2023: Postoperative pulmonary embolism (HCC) No date: Psychiatric disorder Comment: depression, anxiety and PTSD PAST SURGICAL HISTORY 06/17/2023: CHOLECYSTECTOMY HX Comment: [facility] No date: TONSILLECTOMY HX FAMILY HISTORY Problem Relation Age of Onset other (migraines) Mother None Father Ovarian cancer Maternal Grandmother Anesthesia Problems No Family History Social History Tobacco Use Smoking status: Never Passive exposure: Yes Smokeless tobacco: Never Tobacco comments: Vapes Vaping Use Vaping Use: current everyday user Substances: Nicotine Substance Use Topics Alcohol use: No Drug use: Yes Frequency: 2.0 times per week Types: Marijuana Comment: smoking Current Outpatient Medications Medication Sig acetaminophen-codeine (TYLENOL-COD #3) 300-30 mg per tablet Take 1-2 tablets by mouth every 4 hours as needed for up to 3 days. norethindrone (AYGESTIN) 5 mg tablet TAKE 1 TABLET BY MOUTH EVERY DAY apixaban (ELIQUIS) 5 mg tab(s) Take by mouth two times a day. (Patient not taking: Reported on 09/12/2023) metoprolol tartrate, short acting, (LOPRESSOR) 25 mg tablet take 1 tablet by mouth twice a day as needed mirtazapine (REMERON) 15 mg tablet TAKE 1 TABLET BY MOUTH EVERYDAY AT BEDTIME lamoTRIgine (LAMICTAL) 25 mg tablet TAKE ONE TABLET DAILY FOR 2 WEEKS THEN TWO TABLETS DAILY FOR 2 WEEKS THEN TAKE THE 100 MG BY MOUTH DAILY gabapentin (NEURONTIN) 300 mg capsule take one tablet po bid and 2 tablets po qhs ondansetron (ZOFRAN) 4 mg tablet Take 1 tablet by mouth every 6 hours as needed for nausea/vomiting. No current facility-administered medications for this visit. Allergies As of Date: 09/18/2023 Allergen Noted Reaction LATEX 07/02/2023 Itching Fully Assessed 09/15/2023 REVIEW OF SYSTEMS Abdomen: No bloating, early satiety, indigestion, or increased flatulence. No abdominal pain, nausea, vomiting, diarrhea + constipation and pain to incision sites Expanded ROS: POWER OPERATOR: + heavy menstrual bleeding Allergies and current medication updated:Yes EXAM: BP 110/70 Pulse 78 Resp 12 Ht 5' 3 (1.60m) Wt 117 lb (53.1kg) SpO2 98% LMP 09/15/2023 BMI 20.73 kg/(m^2). GENERAL: pleasant, female in no apparent distress HEENT: Normocephalic, atraumatic, mucus membranes moist, and no lesions CHEST: Normal inspiratory effort ABDOMEN: soft and no masses + tenderness to palpation in all 4 quadrants, incision sites clean, dry, and intact, yellow ecchymosis to below umbilicus PELVIC: external genitalia normal, normal Bartholin's glands, urethra, [place]'s glands, no vulvar lesions, no cervical lesions, good vaginal support, + menses, normal appearing perineal body and perianal region NEURO: alert and oriented x3,exam grossly non-focal EXTREMITIES: normal ASSESSMENT AND PLAN: 1. Post-op pain - ICD9: 338.18, ICD10: G89.18 (primary diagnosis) - Incisions clean, dry, and intact - Mild ecchymosis to below umbilicus - Recommend continued rotation of Tylenol 3 with Ibuprofen - Discussed pain may be related to constipation and gas - Recommend slow walking and Colace, simethicone - Low suspicion for infection - Case reviewed with DM 2. Constipation, unspecified constipation type - ICD9: 564.00, ICD10: K59.00 - Increase hydration 3. Excessive bleeding in premenopausal period - ICD9: 627.0, ICD10: N92.4 - CBC ordered To go to ER with chest pain, shortness of breath, worsening pain, or worsening bleeding. RTO in 2 weeks for post op. Barbi Tian APRN.ULISSES Medical Decision Making: Problems: Low: Acute, uncomplicated illness or injury Data: Unique test(s) ordered: 1 Risk: Minimal: Minimal risk from testing/treatment Moderate: Drug management Medical Decision Making Level: 3 - Low documented in this encounter [facility] 09-18-2023 Telephone encounter Note Pt spoke to FUR DRUMMER this am and appt made for this morning with . Juliane Martin RN [facility] 09-18-2023 Miscellaneous Notes Pt spoke to FUR DRUMMER this am and appt made for this morning with EH. Juliane Martin RN documented in this encounter [facility] 09-17-2023 Telephone encounter Note Left message for patient to call office. [employer] message sent to patient. Juliane Martin RN [facility] 09-17-2023 Miscellaneous Notes Left message for patient to call office. [employer] message sent to patient. Juliane Martin RN Tylenol #3 ordered for her. Patient has been taking Ibuprofen 800 MG every 6 hours and alternating with Tylenol 1,000 MG. Patient does not think that she has bruising. Patient states any other doctor would regarding giving stronger pain reliever. Please advise. Chantelle Marquis RN Left message for patient to call office. Juliane Martin RN How is she currently taking the medication? She needs to make sure she is taking the ibuprofen 600mg (3 otc tabs) every 6 hrs and tyelnol she can take 1000mg every 6 hrs and alternate them. Does she have any excessive bruising around incision sites? I do not typically given anything stronger then otc medications for this laparoscopy. Patient had diagnostic lap and IUD removal yesterday. Calling c/o incisional pain. Rating 10/10 on pain scale today. Stated she can barely get out of bed and walk this morning. Ibuprofen and tylenol have not helped at all. Asking if there's any other pain medication she could get. No other complaints or concerns. Please advise. Iveth Kohli RN documented in this encounter [facility] 09-16-2023 Telephone encounter Note Tylenol #3 ordered for her. [facility] 09-16-2023 Telephone encounter Note Patient has been taking Ibuprofen 800 MG every 6 hours and alternating with Tylenol 1,000 MG. Patient does not think that she has bruising. Patient states any other doctor would regarding giving stronger pain reliever. Please advise. Chantelle Marquis RN [facility] 09-16-2023 Telephone encounter Note Left message for patient to call office. Juliane Martin RN [facility] 09-16-2023 Telephone encounter Note How is she currently taking the medication? She needs to make sure she is taking the ibuprofen 600mg (3 otc tabs) every 6 hrs and tyelnol she can take 1000mg every 6 hrs and alternate them. Does she have any excessive bruising around incision sites? I do not typically given anything stronger then otc medications for this laparoscopy. [facility] 09-16-2023 Telephone encounter Note Patient had diagnostic lap and IUD removal yesterday. Calling c/o incisional pain. Rating 10/10 on pain scale today. Stated she can barely get out of bed and walk this morning. Ibuprofen and tylenol have not helped at all. Asking if there's any other pain medication she could get. No other complaints or concerns. Please advise. Iveth Kohli RN [facility] 09-15-2023 Note HNO ID: [id number] Author: YAA TREADWELL APRN.MANAGING BROKER Service: Anesthesiology Author Type: Nurse Electrical And Radio Mechanic Type: Anesthesia Procedure Notes Filed: 09/15/2023 08:51 Note Text: ANESTHESIOLOGY PROCEDURE NOTE Airway General Information Procedure Start Time/Medication Administration: 09/15/2023 8:40 AM Procedure End Time: 09/15/2023 8:43 AM Patient location during procedure: OR Timeout Performed Pre-procedure: timeout performed Consent Obtained: Yes Patient identity confirmed: arm band Staffing MANAGING BROKER: Yaa Treadwell APRN.MANAGING BROKER Performed by: JOSE GUADALUPE Indications and Patient Condition Indications for airway management: anesthesia Preoxygenated: yes anesthesia circuit Patient position: sniffing Cricoid Pressure: No Manual In-Line Stabilization: No Difficult Mask: No Final Airway Details Final airway type: endotracheal airway Final Endotracheal Airway: ETT Cuffed: yes Successful intubation technique: direct laryngoscopy Blade: Sammy Blade size: #4 ETT size (mm): 7.0 Measured from: lips Measurement (cm): 21 Placement verified by: chest auscultation Cormack-Lehane Classification: grade I - full view of glottis Number of attempts at approach: 1 Failed airway: no Unrecognized esophageal intubation: no Airway not difficult SIGNATURE: Yaa Canas APRN.MANAGING BROKER PATIENT NAME: Keagan Alicia DATE: September 15, 2023 TIME: 8:50 AM CSN: [id number] [facility] 08-02-2024 History and physical note Pre-Op History and Physical HPI: The patient is a 22 year old female presenting for pre-operative visit. She is scheduled for Diagnostic Laparoscopy removal of perforated IUD, for Perforated IUD on 09/15/23. Procedure discussed along with risks, benefits and complications. Other alternatives discussed for management. Consent form signed? Yes. PAST MEDICAL HISTORY No date: Anemia No date: Chronic tonsillitis 10/08/2016: Depression 07/2022: Gall stone Comment: cholecystectomy after delivery No date: Paroxysmal SVT (supraventricular tachycardia) (HCC) 06/2023: Postoperative pulmonary embolism ([facility]) No date: Psychiatric disorder Comment: depression, anxiety and PTSD PAST SURGICAL HISTORY 06/17/2023: CHOLECYSTECTOMY HX Comment: [facility] No date: TONSILLECTOMY HX Current Outpatient Medications Medication Sig Dispense Refill norethindrone (AYGESTIN) 5 mg tablet TAKE 1 TABLET BY MOUTH EVERY DAY 90 tablet 3 metoprolol tartrate, short acting, (LOPRESSOR) 25 mg tablet take 1 tablet by mouth twice a day as needed 180 tablet 1 mirtazapine (REMERON) 15 mg tablet TAKE 1 TABLET BY MOUTH EVERYDAY AT BEDTIME 90 tablet 1 lamoTRIgine (LAMICTAL) 25 mg tablet TAKE ONE TABLET DAILY FOR 2 WEEKS THEN TWO TABLETS DAILY FOR 2 WEEKS THEN TAKE THE 100 MG BY MOUTH DAILY 180 tablet 1 gabapentin (NEURONTIN) 300 mg capsule take one tablet po bid and 2 tablets po qhs 90 capsule 0 ondansetron (ZOFRAN) 4 mg tablet Take 1 tablet by mouth every 6 hours as needed for nausea/vomiting. 120 tablet 1 fluconazole (DIFLUCAN) 150 mg tablet Take 1 tablet by mouth one time only for 1 dose. 1 tablet 0 apixaban (ELIQUIS) 5 mg tab(s) Take by mouth two times a day. (Patient not taking: Reported on 09/12/2023) No current facility-administered medications for this visit. ALLERGIES: Latex PERSONAL HISTORY: Social History Tobacco Use Smoking status: Never Passive exposure: Yes Smokeless tobacco: Never Tobacco comments: Vapes Vaping Use Vaping Use: current everyday user Substances: Nicotine Substance Use Topics Alcohol use: No Drug use: Yes Frequency: 2.0 times per week Types: Marijuana Comment: smoking FAMILY HISTORY: FAMILY HISTORY Problem Relation Age of Onset other (migraines) Mother None Father Ovarian cancer Maternal Grandmother Anesthesia Problems No Family History REVIEW OF SYMPTOMS: negative except as noted above PHYSICAL EXAMINATION: VITALS: Blood pressure 100/60, pulse 73, height 160 cm (5' 3), weight 52.2 kg (115 lb), last menstrual period 07/14/2023, SpO2 98%, not currently . GENERAL: The patient is well nourished, well hydrated in no acute distress. , The patient is oriented to time, place, and person. NECK: full range of motion LUNGS: Clear to auscultation bilaterally. no wheezes, rhonchi or rales HEART: Regular rate and rhythm, Normal heart sounds, and No murmurs or gallops IMPRESSION: 22yo with IUD in abdominal/pelvic cavity. PLAN: Diagnostic laparoscopy with removal of IUD Pt has been counseled on risks/benefits and alternatives of surgery including but not limited to anesthesia, bleeding, infection, injury to pelvic structures including bowel, bladder, ureters and vessels. Pt wishes to proceed with surgery at this time. Lovenox pre op. Cardiac clearance was given preop. Off Eliquis Pre and Post op instructions reviewed. I have reviewed and updated past medical and surgical history, medications and allergies Mary Jo Barnett MD [facility] 09-12-2023 History and physical note Pre-Op History and Physical HPI: The patient is a 22 year old female presenting for pre-operative visit. She is scheduled for Diagnostic Laparoscopy removal of perforated IUD, for Perforated IUD on 09/15/23. Procedure discussed along with risks, benefits and complications. Other alternatives discussed for management. Consent form signed? Yes. PAST MEDICAL HISTORY No date: Anemia No date: Chronic tonsillitis 10/08/2016: Depression 07/2022: Gall stone Comment: cholecystectomy after delivery No date: Paroxysmal SVT (supraventricular tachycardia) (HCC) 06/2023: Postoperative pulmonary embolism (HCC) No date: Psychiatric disorder Comment: depression, anxiety and PTSD PAST SURGICAL HISTORY 06/17/2023: CHOLECYSTECTOMY HX Comment: [facility] No date: TONSILLECTOMY HX Current Outpatient Medications Medication Sig Dispense Refill norethindrone (AYGESTIN) 5 mg tablet TAKE 1 TABLET BY MOUTH EVERY DAY 90 tablet 3 metoprolol tartrate, short acting, (LOPRESSOR) 25 mg tablet take 1 tablet by mouth twice a day as needed 180 tablet 1 mirtazapine (REMERON) 15 mg tablet TAKE 1 TABLET BY MOUTH EVERYDAY AT BEDTIME 90 tablet 1 lamoTRIgine (LAMICTAL) 25 mg tablet TAKE ONE TABLET DAILY FOR 2 WEEKS THEN TWO TABLETS DAILY FOR 2 WEEKS THEN TAKE THE 100 MG BY MOUTH DAILY 180 tablet 1 gabapentin (NEURONTIN) 300 mg capsule take one tablet po bid and 2 tablets po qhs 90 capsule 0 ondansetron (ZOFRAN) 4 mg tablet Take 1 tablet by mouth every 6 hours as needed for nausea/vomiting. 120 tablet 1 fluconazole (DIFLUCAN) 150 mg tablet Take 1 tablet by mouth one time only for 1 dose. 1 tablet 0 apixaban (ELIQUIS) 5 mg tab(s) Take by mouth two times a day. (Patient not taking: Reported on 09/12/2023) No current facility-administered medications for this visit. ALLERGIES: Latex PERSONAL HISTORY: Social History Tobacco Use Smoking status: Never Passive exposure: Yes Smokeless tobacco: Never Tobacco comments: Vapes Vaping Use Vaping Use: current everyday user Substances: Nicotine Substance Use Topics Alcohol use: No Drug use: Yes Frequency: 2.0 times per week Types: Marijuana Comment: smoking FAMILY HISTORY: FAMILY HISTORY Problem Relation Age of Onset other (migraines) Mother None Father Ovarian cancer Maternal Grandmother Anesthesia Problems No Family History REVIEW OF SYMPTOMS: negative except as noted above PHYSICAL EXAMINATION: VITALS: Blood pressure 100/60, pulse 73, height 160 cm (5' 3), weight 52.2 kg (115 lb), last menstrual period 07/14/2023, SpO2 98%, not currently . GENERAL: The patient is well nourished, well hydrated in no acute distress. , The patient is oriented to time, place, and person. NECK: full range of motion LUNGS: Clear to auscultation bilaterally. no wheezes, rhonchi or rales HEART: Regular rate and rhythm, Normal heart sounds, and No murmurs or gallops IMPRESSION: 22yo with IUD in abdominal/pelvic cavity. PLAN: Diagnostic laparoscopy with removal of IUD Pt has been counseled on risks/benefits and alternatives of surgery including but not limited to anesthesia, bleeding, infection, injury to pelvic structures including bowel, bladder, ureters and vessels. Pt wishes to proceed with surgery at this time. Lovenox pre op. Cardiac clearance was given preop. Off Eliquis Pre and Post op instructions reviewed. I have reviewed and updated past medical and surgical history, medications and allergies Mary Jo Barnett MD documented in this encounter [facility] 09-10-2023 Telephone encounter Note Request for 90 day supply. Pt last seen in office 08/19. Upcoming annual 02/03/24. Requested Prescriptions Pending Prescriptions Disp Refills norethindrone (AYGESTIN) 5 mg tablet [Pharmacy Med Name: NORETHINDRONE 5 MG TABLET] 90 tablet 1 Sig: TAKE 1 TABLET BY MOUTH EVERY DAY Juliane Martin RN [facility] 09-10-2023 Miscellaneous Notes Request for 90 day supply. Pt last seen in office 08/19. Upcoming annual 02/03/24. Requested Prescriptions Pending Prescriptions Disp Refills norethindrone (AYGESTIN) 5 mg tablet [Pharmacy Med Name: NORETHINDRONE 5 MG TABLET] 90 tablet 1 Sig: TAKE 1 TABLET BY MOUTH EVERY DAY Juliane Martin RN documented in this encounter [facility] 09-08-2023 Telephone encounter Note Good morning, I re-reviewed patient's chart with staff anesthesiologist, Dr. Coker, in light of patient's recent appointment with her liquid sugar fortifier Dr. Fernando Noriega on 09/03/23 (A&P included below). Pt is OK to proceed with surgery prior to SVT ablation per Dr. Coker. Please let me know if you have any questions or concerns. Thank you, Joyce Mishra PA-C Assessment/Plan #Incidental low risk subsegmental pulmonary embolism -Pulmonary embolism in the setting of acute illness with cholecystitis and surgery on 06/2023, in the background of a history of smoking. Likely provoked event?. No DVT on ultrasound -She is planned for surgery to remove extrauterine IUD. -Okay to stop anticoagulation once she completes 3 months of therapy which would be by the end of August -After this recommend she does hypercoagulable testing that has been ordered by hematology. Will also add APLA testing. Continue follow-up with hematology -Echocardiogram done at [facility] showed normal LV and RV function with no valvular abnormalities -For her planned surgery if she stays as inpatient recommend for her to wear SCDs at all times and to use prophylactic subcutaneous heparin. Also discussed early mobilization to prevent VTE # SVT -Follow-up with electrophysiology for outpatient SVT ablation Norbert Fernandes MD [facility] Interventional Cardiology Endovascular Interventions [email or web address] [facility] 09-08-2023 Miscellaneous Notes Good morning, I re-reviewed patient's chart with staff anesthesiologist, Dr. Coker, in light of patient's recent appointment with her liquid sugar fortifier Dr. Fernando Noriega on 09/03/23 (A&P included below). Pt is OK to proceed with surgery prior to SVT ablation per Dr. Coker. Please let me know if you have any questions or concerns. Thank you, Joyce Mishra PA-C Assessment/Plan #Incidental low risk subsegmental pulmonary embolism -Pulmonary embolism in the setting of acute illness with cholecystitis and surgery on 06/2023, in the background of a history of smoking. Likely provoked event?. No DVT on ultrasound -She is planned for surgery to remove extrauterine IUD. -Okay to stop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 moist, and no lesions CHEST: Normal inspiratory effort ABDOMEN: soft, non-tender, and no masses PELVIC: external genitalia normal, normal Bartholin's glands, urethra, [place]'s glands, no vulvar lesions, no cervical lesions, good vaginal support, physiologic discharge present, normal appearing perineal body and perianal region, IUD strings NOT visible BIMANUAL: uterus normal size, shape and consistency, no adnexal masses, and positive cervical motion tenderness NEURO: alert and oriented x3,exam grossly non-focal EXTREMITIES: normal ASSESSMENT/PLAN: 1. Pelvic pain in female - ICD9: 625.9, ICD10: R10.2 (primary diagnosis) - PELVIC US WHI - GONORRHEA/CHLAMYDIA NAAT - ALMITA/TRICHOMONAS NAAT - BACTERIAL VAGINOSIS NAAT 2. Intrauterine contraceptive device threads lost, initial encounter - ICD9: 996.32, ICD10: T83.32XA - PELVIC US WHI 3. Irregular bleeding - ICD9: 626.4, ICD10: N92.6 - PELVIC US WHI - Aygestin 5 mg daily Will notify patient of test results. Sandra Cole APRN.CNP Medical Decision Making: Problems: Moderate: New problem with uncertain prognosis Data: Unique test(s) ordered: 3+ Risk: Moderate: Drug management Medical Decision Making Level: 4 - Moderate documented in this encounter [facility] 08-07-2023 Telephone encounter Note The following medication(s) is being requested: LAST APPT - 6/3/24 NEXT APPT - N/A Requested Prescriptions Pending Prescriptions Disp Refills mirtazapine (REMERON) 15 mg tablet [Pharmacy Med Name: MIRTAZAPINE 15 MG TABLET] 90 tablet 1 Sig: TAKE 1 TABLET BY MOUTH EVERYDAY AT BEDTIME Please process accordingly Corinne Caicedo [facility] 08-07-2023 Miscellaneous Notes The following medication(s) is being requested: LAST APPT - 07/14/23 NEXT APPT - N/A Requested Prescriptions Pending Prescriptions Disp Refills mirtazapine (REMERON) 15 mg tablet [Pharmacy Med Name: MIRTAZAPINE 15 MG TABLET] 90 tablet 1 Sig: TAKE 1 TABLET BY MOUTH EVERYDAY AT BEDTIME Please process accordingly Corinne Caicedo documented in this encounter [facility] 07-31-2023 Instructions Rachell Amador APRN.CNP - 07/31/2023 3:35 PM EDT Cardiology [phone] Dr. Jonathan Dutta Cardiovascular Medicine [facility] Medical Office Building [address] [place] [id number] Appointment: [phone] Desk: [phone] Cardiology: Dr. Carl Peña MD [address] [place] [id number] Cardiology: DO Grant Galeana documented in this encounter [facility] 07-31-2023 History of Present illness Narrative CHIEF COMPLAINT: Keagan Alicia is a 22 year old female who presents for complaints of a fast heart rate, palpitations, chest tightness, dizziness, and SOB. She states she has had heart problems since she was little but couldn't elaborate what it was. She recently underwent a cholecystectomy on 06/17/23 and developed a PE on 06/21/23. She was started on Eliquis which was then complicated by heavy uterine bleeding three days later. She did see a liquid sugar fortifier with in [place] and the Eliquis will be continued for a total of 3 months. A 14 day Holter monitor was also ordered and she completed this on 07/23/23 but hasn't heard anything about the results yet although she can see them on [facility]. She is here to discuss the results. She reports having an episode this past Friday where she felt hot, became dizzy, had tightness in her chest, and dizzy for about 30 minutes. At that time, her apple watch noted her HR to be around 210. She does not drink any alcohol. She recently switched to nicotine free vape. She only drinks sweet tea as a caffeine source. She does try to stay hydrated. She has not started any new supplements. She has the Mirena for contraception. She denies any known family history of WPW, sudden cardiac but notes a history of OH in a few of her family members. She will be following with hematology after she completes the 3 month course of Eliquis to further genetic testing. Holter report showed her predominant heart rhythm to be sinus rhythm but did have episodes of SVT that appeared to be short to mi RP tachycardia longest episode lasting 3 minutes 44 seconds. There were 6 episodes in total. There was a wide complex tachycardic episode of SVT. No evidence of atrial fibrillation. The fastest episode was noted at 234 bpm. This study is available under care everywhere. History of Present Illness Keagan Alicia is a 22 y.o. year old female with history of smoking who is presenting for evaluation after episode of pulmonary embolism. Patient had a recent hospital admission with cholecystitis that needed cholecystectomy. During the hospital admission CT scan showed incidental finding of small right subsegmental pulmonary embolism. Patient has been asymptomatic from a respiratory and cardiovascular standpoint. Denies chest pain, shortness of breath, or syncope. During admission there is no documentation of hypoxia or tachycardia. A repeat CT PE protocol confirmed the findings of small subsegmental right lower lobe pulmonary embolism. Patient was started on Eliquis. She is now reporting she is having very heavy periods while on the loading dose of Eliquis. She denies prior history of DVT or family history of DVT. Patient is not on any hormonal therapy. She does vape. She does report before all this started she was getting intermittent episodes of palpitations at least once a day that last for several minutes and were associated with dizziness. The history is provided by the patient. Heart Problem This is a new problem. The current episode started more than 1 week ago. The problem occurs every several days. The pain is present in the substernal region and lateral region. The pain is at a severity of 5/10. The pain is moderate. The quality of the pain is described as heavy and pressure-like. The pain does not radiate. Associated symptoms include dizziness, headaches, irregular heartbeat, nausea, palpitations and shortness of breath. Pertinent negatives include no abdominal pain, no cough, no diaphoresis, no exertional chest pressure, no fever, no leg pain, no lower extremity edema, no numbness, no syncope, no vomiting and no weakness. She has tried rest for the symptoms. Pertinent negatives for past medical history include no seizures. PAST MEDICAL HISTORY Diagnosis Date Anemia Chronic tonsillitis Depression 10/08/2016 Gall stone 07/2022 cholecystectomy after delivery Postoperative pulmonary embolism (HCC) 06/2023 Psychiatric disorder depression, anxiety and PTSD PAST SURGICAL HISTORY Procedure Laterality Date CHOLECYSTECTOMY HX 06/17/2023 [facility] TONSILLECTOMY HX Social History Tobacco Use Smoking status: Never Passive exposure: Yes Smokeless tobacco: Never Tobacco comments: Vapes Vaping Use Vaping Use: current everyday user Substances: Nicotine Substance Use Topics Alcohol use: No Drug use: No ALLERGIES Allergen Reactions Latex Itching Family History Problem Relation Age of Onset other (migraines) Mother None Father Ovarian cancer Maternal Grandmother Current Outpatient Medications Medication Sig Dispense Refill lamoTRIgine (LAMICTAL) 25 mg tablet TAKE ONE TABLET DAILY FOR 2 WEEKS THEN TWO TABLETS DAILY FOR 2 WEEKS THEN TAKE THE 100 MG BY MOUTH DAILY 180 tablet 1 mirtazapine (REMERON) 15 mg tablet Take 1 tablet by mouth daily at bedtime. 30 tablet 0 gabapentin (NEURONTIN) 300 mg capsule take one tablet po bid and 2 tablets po qhs 90 capsule 0 ondansetron (ZOFRAN) 4 mg tablet Take 1 tablet by mouth every 6 hours as needed for nausea/vomiting. 120 tablet 1 apixaban (ELIQUIS) 5 mg tab(s) Take 5 mg by mouth. levonorgestrel (MIRENA) 21 mcg/24 hours (8 yrs) 52 mg IUD 1 Each by INTRAUTERINE route as directed. 1 Each 0 No current facility-administered medications for this visit. Review of Systems Constitutional: Positive for fatigue. Negative for appetite change, chills, diaphoresis, fever and unexpected weight change. Eyes: Positive for visual disturbance. Respiratory: Positive for chest tightness and shortness of breath. Negative for cough and wheezing. Cardiovascular: Positive for chest pain and palpitations. Negative for leg swelling and syncope. Gastrointestinal: Positive for nausea. Negative for abdominal pain, constipation, diarrhea and vomiting. Endocrine: Negative. Genitourinary: Negative. Musculoskeletal: Negative. Skin: Negative. Neurological: Positive for dizziness, light-headedness and headaches. Negative for seizures, syncope, weakness and numbness. Hematological: Negative. BP 102/62 Pulse 73 Temp 97.9 Resp 16 Ht 5' 3 (1.60m) Wt 117 lb (53.1kg) SpO2 98% LMP 06/22/2023 BMI 20.73 kg/(m^2). Physical Exam Vitals and nursing note reviewed. Constitutional: Appearance: Normal appearance. HENT: Mouth/Throat: Mouth: Mucous membranes are moist. Eyes: Pupils: Pupils are equal, round, and reactive to light. Cardiovascular: Rate and Rhythm: Normal rate and regular rhythm. Heart sounds: Normal heart sounds. No murmur heard. Pulmonary: Effort: Pulmonary effort is normal. Breath sounds: Normal breath sounds and air entry. Skin: General: Skin is warm and dry. Neurological: Mental Status: She is alert and oriented to person, place, and time. Psychiatric: Mood and Affect: Mood normal. Behavior: Behavior is cooperative. Cognition and Memory: Cognition normal. ASSESSMENT/PLAN: 1. Paroxysmal SVT (supraventricular tachycardia) (HCC) - ICD9: 427.0, ICD10: I47.10 (primary diagnosis) - Will start her on a low dose beta yanira to take as needed when symptomatic. She needs to get in with EP. Will get an echo in the meantime. She does not want to return to the liquid sugar fortifier that she saw previously. She was advised to sustain from any caffeine, alcohol, or nicotine products. She was advised that if her HR sustains over 200, she needs to go to the ER for evaluation. - CONSULT TO ELECTROPHYSIOLOGY - ECHO - METOPROLOL TARTRATE 25 MG TABLET - CONSULT TO CARDIOLOGY 2. Palpitations - ICD9: 785.1, ICD10: R00.2 - ECHO - METOPROLOL TARTRATE 25 MG TABLET - CONSULT TO CARDIOLOGY 3. Single subsegmental pulmonary embolism without acute cor pulmonale (HCC) - ICD9: 415.19, ICD10: I26.93 - Taking Eliquis BID. Treatment course will be for 3 months and she will follow up with hematology. 4. On continuous oral anticoagulation - ICD9: V58.61, ICD10: Z79.01 5. Engages in vaping - ICD9: V69.8, ICD10: Z72.89 - She is currently using nicotine free vapes. New medication(s) prescribed today: Yes: Metoprolol. Discussed new medication dosage, usage, goals of therapy, and side effects. Patient has been apprised of any potential drug interactions to be aware of. Patient expresses understanding. Counseling completed in adopting health behaviors such as avoiding excessive alcohol use, avoid tobacco use, improve nutrition, and engage in physical activities. Copy of written care plan, clinical summary, treatment plan, new medications, goals, and self management requirements were given to patient. Rachell Amador APRN.CNP documented in this encounter [facility] 07-24-2023 History of Present illness Narrative Keagan Alicia presents today for IUD check. She had a Mirena placed on 06/26/2023. She has had occasional pain since placement. No vaginal bleeding REVIEW OF SYSTEMS: PAIN ASSESSMENT: CURRENTLY HAVING PAIN; see HPI Reports pain with intercourse PHYSICAL EXAMINATION: BP 100/64 Wt 121 lb (54.9kg) LMP 06/22/2023 ABDOMEN:soft, non-tender, no masses, no hepatosplenomegaly, and no lymphadenopathy EXTERNAL GENITALIA: Normal genitalia and Bartholins, Urethra, Sken'e normal CERVIX: smooth, no lesions. IUD strings visible. UTERUS: normal size ADNEXA: negative for tenderness or masses/ No cervical motion tenderness IMPRESSION/PLAN: IUD correctly positioned. Follow up for annual exam or sooner if needed. - Patient to notify provider if continues to have pelvic pain or pain with intercourse Gino Valero APRN.CNM documented in this encounter [facility] 07-15-2023 History of Present illness Narrative Images from the original note were not included. [facility] SMOKING CESSATION PROGRAM CONSULT NOTE I will communicate the consult note back to the requesting health care provider by way of the shared medical record for internal providers or letter via the [employer] for external providers. July 15, 2023 CONSULTING PHYSICIAN/REFERRAL: Mitra Reed [address] [place] [id number] REASON FOR CONSULT/REFERRAL: Tobacco Cessation Treatment HPI: Keagan Alicia is a 22 year old female who is a current smoker who presents to the office today for a smoking cessation consult. PMH significant for anxiety/depression, pulmonary embolism following cholecystectomy 06/17/2023 on Eliquis. Patient is currently vaping. She recently switched to a nicotine free vape. PCP prescribed nicotine lozenges and patient states they are not helpful. She states it is the habit of having something in her hand and placing it to her mouth that is the issue. VAPING/E-CIGARETTE USE: Nicotine free vape Lost Miki 1 cartridge/2 weeks. Has vaped for 5 years. HISTORY OF PRIOR TOBACCO TREATMENT: Yes TREATMENT: Nicotine replacement TRIGGERS: Stress and boredom PMH: PAST MEDICAL HISTORY Diagnosis Date Anemia Chronic tonsillitis Depression 10/08/2016 Gall stone 07/2022 cholecystectomy after delivery Postoperative pulmonary embolism (HCC) 06/2023 Psychiatric disorder depression, anxiety and PTSD PAST SURGICAL HX: PAST SURGICAL HISTORY Procedure Laterality Date CHOLECYSTECTOMY HX 06/17/2023 [facility] TONSILLECTOMY HX MEDICATIONS: lamoTRIgine (LAMICTAL) 25 mg tablet TAKE ONE TABLET DAILY FOR 2 WEEKS THEN TWO TABLETS DAILY FOR 2 WEEKS THEN TAKE THE 100 MG BY MOUTH DAILY mirtazapine (REMERON) 15 mg tablet Take 1 tablet by mouth daily at bedtime. gabapentin (NEURONTIN) 300 mg capsule take one tablet po bid and 2 tablets po qhs Nicotine Polacrilex [address] 1 Lozenge between cheek and gum as needed. ondansetron (ZOFRAN) 4 mg tablet Take 1 tablet by mouth every 6 hours as needed for nausea/vomiting. apixaban (ELIQUIS) 5 mg tab(s) Take 5 mg by mouth. levonorgestrel (MIRENA) 21 mcg/24 hours (8 yrs) 52 mg IUD 1 Each by INTRAUTERINE route as directed. venlafaxine ER (EFFEXOR XR) 150 mg 24 hr capsule TAKE 1 CAPSULE BY MOUTH EVERY DAY ALLERGIES: Allergies: Latex Itching FAM HX: FAMILY HISTORY Problem Relation Age of Onset other (migraines) Mother None Father Ovarian cancer Maternal Grandmother SOCIAL HX: Social History Tobacco Use Smoking status: Never Passive exposure: Yes Smokeless tobacco: Never Tobacco comments: Vapes Vaping Use Vaping Use: current everyday user Substances: Nicotine Substance Use Topics Alcohol use: No Drug use: No ROS: All other systems reviewed as negative except for what is noted in HPI and review of systems. PHYSICAL EXAM: BP (P) 106/58 Pulse (P) 65 Resp (P) 15 Wt (P) 52.2 kg (115 lb) LMP 06/22/2023 SpO2 (P) 100% BMI (P) 20.37 kg/m Gen: No acute distress. Cooperative with examination. HEENT: NT/AC. Oral hygeine and dentition good. Pharynx clear. Resp: No stridor, accessory respiratory muscle use, supra-sternal or intercostal retractions. No wheezes, crackles, or rhonchi. CV: Regular rythm. Heart tones normal. Radial pulses normal. Ext: Warm and well perfused. No clubbing, cyanosis, edema. Skin: No rash, ecchymoses. Neuro: Mental status normal. Affect normal. No tremor. IMPRESSION/PLAN: 1. Vaping nicotine dependence, non-tobacco product - ICD9: 305.1, ICD10: F17.200 Cessation encouraged. Discussed harmful affects of vaping. Patient recently switched to a nicotine free vape. She is trying to quit. Her psychiatrist is to provide her with a list of counselors to meet with. We reviewed other ways to deal with stress and ways to keep her hands busy. She is interested in Eco[employer] for stress management. I do not feel she would benefit from NRT or medication. - CONSULT TO ECOACHING WELLNESS Chantelle Low PA-C Pulmonary & Critical Care Medicine [facility] [place] July 15, 2023 9:38 AM CC Mitra Reed [address] [place] [id number] and Rachell Amador, CHILD CAREGIVER PRIVATE HOME.DOCTOR ASSISTANT via [employer] documented in this encounter [facility] 07-14-2023 Note Addended by: DIPTI FREED on: 07/14/2023 03:30 PM Modules accepted: Orders [facility] 07-14-2023 Miscellaneous Notes Addended by: DIPTI FREED on: 07/14/2023 03:30 PM Modules accepted: Orders documented in this encounter [facility] 07-14-2023 Note HNO ID: [id number] Author: DIPTI FREED DO Service: ? Author Type: Physician Type: Progress Notes Filed: 07/14/2023 15:24 Note Text: FOLLOW UP - PSYCHIATRIC PROGRESS NOTE Visit Type:Virtual Visit utilizing two-way audio and video for at least a portion of the visit. Consent for virtual visit obtained verbally. Confidentiality limitations with virtual visits reviewed with the patient and guardian, if present, who have accepted the risk verbally prior to proceeding with encounter. I have communicated my name and active licensure. The patient's identity and physical location were verified at the time of this visit. Either the patient or their legal entry level marketing representative has been informed of the risks and benefits of -- and alternatives to -- treatment through a remote evaluation and consents to proceed with the evaluation remotely. Reason for Visit: Outpatient follow-up and safety monitoring of previously prescribed psychiatric medication, psychotherapy or other treatment CC: anxiety follow up HPI: Pt had gallbladder taken out June 16 and had developed a PE placed on blood thinners. She her abdominal pain is better but when she does too much cleaning her stomach starts to bother. Her back pain still hurts a bit. Pt says her heart rate went way up to 209 and she has a heart monitor on , presses a button when she has symptoms. She has to wear it for total of 14 days for liquid sugar fortifier. She has to see a airframe and power plant mechanic as she developed a PE. She stopped the abilify a week after she was seen due to fatigue from the abilify 2.5 mg. She added the lexapro 10 mg on 06/12 to the effexor XL 150 mg . No recent panic attacks. She has been taking the neurontin 300 mg po bid and 600 mg po qhs but not sleeping with this. She can fall asleep but it takes her a while to fall asleep and she wakes up multiple times during the night. She feels much better in terms of not having the anger episodes.Not flipping out like she used to . Not using the Mj as much anymore. Not . Risks and benefits of the medication, including any black box warnings, were discussed with the patient. Interval Progress: some improvement PATIENT DATA: Generalized Anxiety Disorder Scale (STEPHON-7) 05/06/2023 06/12/2023 07/14/2023 STEPHON - 7 SCORES Score 19 18 16 (0-4) minimal anxiety, (5-9) mild anxiety, (10-14) moderate anxiety, (15-21) severe anxiety Patient Health Questionnaire (PHQ-9) 06/12/2023 07/06/2023 07/14/2023 PHQ-9 Score 15 14 11 (0-4) minimal depression, (5-9) mild depression, (10-14) moderate depression, (15-19) moderately severe depression, (20-27) severe depression PROMIS Global Health 05/06/2023 PROMIS Global Health - (T-Scores - the mean of general population = 50. Five points is a clinically meaningful difference.) Physical T-Score 47.7 Mental T-Score 25.1 PAST MEDICAL HISTORY Diagnosis Date Anemia Chronic tonsillitis Depression 10/08/2016 Gall stone 07/2022 cholecystectomy after delivery Postoperative pulmonary embolism (HCC) 06/2023 Psychiatric disorder depression, anxiety and PTSD PAST SURGICAL HISTORY Procedure Laterality Date CHOLECYSTECTOMY HX 06/17/2023 [facility] TONSILLECTOMY HX Current Outpatient Medications Medication Sig Dispense Refill lamoTRIgine (LAMICTAL) 25 mg tablet TAKE ONE TABLET DAILY FOR 2 WEEKS THEN TWO TABLETS DAILY FOR 2 WEEKS THEN TAKE THE 100 MG BY MOUTH DAILY 180 tablet 1 escitalopram oxalate (LEXAPRO) 10 mg tablet TAKE 1 TABLET BY MOUTH EVERY DAY 90 tablet 1 Nicotine Polacrilex [address] 1 Lozenge between cheek and gum as needed. 720 Lozenge 2 ondansetron (ZOFRAN) 4 mg tablet Take 1 tablet by mouth every 6 hours as needed for nausea/vomiting. 120 tablet 1 apixaban (ELIQUIS) 5 mg tab(s) Take 5 mg by mouth. levonorgestrel (MIRENA) 21 mcg/24 hours (8 yrs) 52 mg IUD 1 Each by INTRAUTERINE route as directed. 1 Each 0 gabapentin (NEURONTIN) 300 mg capsule take one po bid and 2 tablets po qhs 90 capsule 2 venlafaxine ER (EFFEXOR XR) 150 mg 24 hr capsule TAKE 1 CAPSULE BY MOUTH EVERY DAY 90 capsule 1 No current facility-administered medications for this visit. ROS: MS denise pain PFSH: none VITAL SIGNS: There were no vitals filed for this visit. MENTAL STATUS EXAM: CONSTITUTIONAL: Well groomed, Appropriately dressed ORIENTATION: Person, Place, Time and Situation MEMORY: Recent intact, Remote intact CONCENTRATION: Normal MOOD: euthymic AFFECT: Full and appropriate to topic SPEECH : Clear AND distinct LANGUAGE : Normal ASSOCIATIONS: Intact THOUGHT PROCESS : Logical, Coherent, and Rational PROGRESSION : There was no evidence of disturbance in thought perception or progression. FUND OF KNOWLEDGE : Appropriate and Adequate SUICIDE: None HOMICIDE: None DATA REVIEWED: None DIAGNOSIS: PTSD, panic disorder , Mj use disorder depression TREATMENT PLAN: 1. D/c'd maría elena D/felicitas (more content not included)... [facility] 07-14-2023 History of Present illness Narrative FOLLOW UP - PSYCHIATRIC PROGRESS NOTE Visit Type:Virtual Visit utilizing two-way audio and video for at least a portion of the visit. Consent for virtual visit obtained verbally. Confidentiality limitations with virtual visits reviewed with the patient and guardian, if present, who have accepted the risk verbally prior to proceeding with encounter. I have communicated my name and active licensure. The patient's identity and physical location were verified at the time of this visit. Either the patient or their legal entry level marketing representative has been informed of the risks and benefits of -- and alternatives to -- treatment through a remote evaluation and consents to proceed with the evaluation remotely. Reason for Visit: Outpatient follow-up and safety monitoring of previously prescribed psychiatric medication, psychotherapy or other treatment CC: anxiety follow up HPI: Pt had gallbladder taken out June 16 and had developed a PE placed on blood thinners. She her abdominal pain is better but when she does too much cleaning her stomach starts to bother. Her back pain still hurts a bit. Pt says her heart rate went way up to 209 and she has a heart monitor on , presses a button when she has symptoms. She has to wear it for total of 14 days for liquid sugar fortifier. She has to see a airframe and power plant mechanic as she developed a PE. She stopped the abilify a week after she was seen due to fatigue from the abilify 2.5 mg. She added the lexapro 10 mg on 06/12 to the effexor XL 150 mg . No recent panic attacks. She has been taking the neurontin 300 mg po bid and 600 mg po qhs but not sleeping with this. She can fall asleep but it takes her a while to fall asleep and she wakes up multiple times during the night. She feels much better in terms of not having the anger episodes.Not flipping out like she used to . Not using the Mj as much anymore. Not . Risks and benefits of the medication, including any black box warnings, were discussed with the patient. Interval Progress: some improvement PATIENT DATA: Generalized Anxiety Disorder Scale (STEPHON-7) 05/06/2023 06/12/2023 07/14/2023 STEPHON - 7 SCORES Score 19 18 16 (0-4) minimal anxiety, (5-9) mild anxiety, (10-14) moderate anxiety, (15-21) severe anxiety Patient Health Questionnaire (PHQ-9) 06/12/2023 07/06/2023 07/14/2023 PHQ-9 Score 15 14 11 (0-4) minimal depression, (5-9) mild depression, (10-14) moderate depression, (15-19) moderately severe depression, (20-27) severe depression PROMIS Global Health 05/06/2023 PROMIS Global Health - (T-Scores - the mean of general population = 50. Five points is a clinically meaningful difference.) Physical T-Score 47.7 Mental T-Score 25.1 PAST MEDICAL HISTORY Diagnosis Date Anemia Chronic tonsillitis Depression 10/08/2016 Gall stone 07/2022 cholecystectomy after delivery Postoperative pulmonary embolism (HCC) 06/2023 Psychiatric disorder depression, anxiety and PTSD PAST SURGICAL HISTORY Procedure Laterality Date CHOLECYSTECTOMY HX 06/17/2023 [facility] TONSILLECTOMY HX Current Outpatient Medications Medication Sig Dispense Refill lamoTRIgine (LAMICTAL) 25 mg tablet TAKE ONE TABLET DAILY FOR 2 WEEKS THEN TWO TABLETS DAILY FOR 2 WEEKS THEN TAKE THE 100 MG BY MOUTH DAILY 180 tablet 1 escitalopram oxalate (LEXAPRO) 10 mg tablet TAKE 1 TABLET BY MOUTH EVERY DAY 90 tablet 1 Nicotine Polacrilex [address] 1 Lozenge between cheek and gum as needed. 720 Lozenge 2 ondansetron (ZOFRAN) 4 mg tablet Take 1 tablet by mouth every 6 hours as needed for nausea/vomiting. 120 tablet 1 apixaban (ELIQUIS) 5 mg tab(s) Take 5 mg by mouth. levonorgestrel (MIRENA) 21 mcg/24 hours (8 yrs) 52 mg IUD 1 Each by INTRAUTERINE route as directed. 1 Each 0 gabapentin (NEURONTIN) 300 mg capsule take one po bid and 2 tablets po qhs 90 capsule 2 venlafaxine ER (EFFEXOR XR) 150 mg 24 hr capsule TAKE 1 CAPSULE BY MOUTH EVERY DAY 90 capsule 1 No current facility-administered medications for this visit. ROS: MS badk pain PFSH: none VITAL SIGNS: There were no vitals filed for this visit. MENTAL STATUS EXAM: CONSTITUTIONAL: Well groomed, Appropriately dressed ORIENTATION: Person, Place, Time and Situation MEMORY: Recent intact, Remote intact CONCENTRATION: Normal MOOD: euthymic AFFECT: Full and appropriate to topic SPEECH : Clear & distinct LANGUAGE : Normal ASSOCIATIONS: Intact THOUGHT PROCESS : Logical, Coherent, and Rational PROGRESSION : There was no evidence of disturbance in thought perception or progression. FUND OF KNOWLEDGE : Appropriate and Adequate SUICIDE: None HOMICIDE: None DATA REVIEWED: None DIAGNOSIS: PTSD, panic disorder , Mj use disorder depression TREATMENT PLAN: 1. D/c'd maría elena D/c lexapro 2. EMDR and therapy referral 3. Add Remeron 15 mg po qhs and continue 150 mg effexor . 4. Continue gabapentin 300 mg po bid and 600 mg po qhs ( consider increasing for pain) 5. hx of melatonin 6. Hold off on starting the lamictal until see tolerate the remeron . Lamictal 25 mg daily for 2 weeks in am then increase to 50 mg po daily for 2 weeks then increase to 100 mg po daily , DORIS . I spent a total of 60 minutes on the date of the service which included [id number] patient care, completing clinical documentation, obtaining and/or reviewing separately obtained history, and performing a medically appropriate examination. ADD ON PSYCHOTHERAPY CODE : No SIGNATURE: Dipti Freed DO PATIENT NAME: Keagan Alicia DATE: July 14, 2023 TIME: 2:19 PM documented in this encounter [facility] 07-08-2023 History of Present illness Narrative General Surgery Post-Operative Visit Patient: Keagan Alicia : 2000 Date of Visit: 07/08/23 Chief Complaint: s/p laparoscopic cholecystectomy History of Present Illness: Keagan Alicia is a 22 y.o. old female s/p laparoscopic cholecystectomy on 06/17/2023 for symptomatic cholelithiasis. She was having difficulty with her gallstones during a previous . She was interested in future pregnancies. Therefore, we proceeded with cholecystectomy to prevent future episodes. Unfortunately, she had significant abdominal pain following surgery. This required hospital readmission. We did a HIDA scan as well as CT scan, which showed no evidence of a bile leak. She incidentally was noted to have a very small pulmonary embolism on a lower cut of the lungs seen on abdominal scan. She therefore had a dedicated CT scan of the chest which showed no additional larger emboli. She was started on anticoagulation and referred to hematology. She is scheduled to have a Holter monitor as well as lower extremity ultrasounds. She also has follow-up with hematology in 3 months. From a postsurgical standpoint, she reports that she is still having some nausea but overall is feeling much better than she did 2 weeks ago. Her bowel movements are loosely formed. She denies any vomiting. He is tolerating a diet. She occasionally gets short-lived sharp left sided abdominal pain. This does not correlate with eating, movement, or bowel movements. She denies any pain on the right side. She denies any fever, but jaundice, scleral icterus, or dark-colored urine. She is interested in returning to work. 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 Home Medications: Prior to Admission medications Medication Sig Start Date End Date Taking? Authorizing Provider apixaban (Eliquis) 5 mg tablet Take 1 tablet (5 mg) by mouth 2 times a day. 06/25/23 08/24/23 Norbert Noriega MD escitalopram (Lexapro) 5 mg tablet Take 1 tablet (5 mg) by mouth once daily. Historical Provider, gabapentin (Neurontin) 300 mg capsule Take 1 capsule (300 mg) by mouth once daily at bedtime. Historical Provider, levonorgestrel (Mirena) 21 mcg/24 hr (8 yrs) 52 mg IUD 52 mg by intrauterine route. 06/26/23 06/24/28 Historical Provider, venlafaxine XR (Effexor-XR) 150 mg 24 hr capsule Take 1 capsule (150 mg) by mouth once daily. 05/13/23 06/25/23 Historical Provider, venlafaxine XR (Effexor-XR) 150 mg 24 hr capsule Take 1 capsule (150 mg) by mouth once daily. Do not crush or chew. Historical Provider, apixaban (Eliquis) 5 mg (74 tabs) tablet Take 2 tablets (10 mg) by mouth 2 times a day for 7 days, then take 1 tablet (5 mg) by mouth 2 times a day. Patient not taking: Reported on 07/02/2023 06/21/23 07/02/23 Saturnino Velázquez, nicotine (Nicoderm CQ) 14 mg/[address] 1 patch over 24 hours on the skin once every 24 hours. Patient not taking: Reported on 07/02/2023 06/25/23 07/02/23 Norbert Noriega MD Allergies: is allergic to latex. ROS: + Still getting some shortness of breath and dizziness with increased activity + Persistent nausea No vomiting No fever No jaundice, scleral icterus No physical exam performed as this was a virtual telephone follow up. Assessment and Plan: Keagan Alicia is a 22 y.o. old female s/p laparoscopic cholecystectomy for symptomatic cholelithiasis. Surgical pathology showed cholelithiasis and 1 benign lymph node. Overall, she is starting to feel much better from a postoperative standpoint. Her pulmonary embolism is being managed by Hematology. From a surgical standpoint, she may resume regular activity, and may return to work on 07/14/23. She will follow-up with me as needed. Alla Llanes MD 07/08/2023 documented in this encounter [facility] Work Phone: 07-04-2023 Telephone encounter Note The following medication(s) is being requested: LAST APPT - 06/12/23 NEXT APPT - 07/09/23 Requested Prescriptions Pending Prescriptions Disp Refills lamoTRIgine (LAMICTAL) 25 mg tablet [Pharmacy Med Name: LAMOTRIGINE 25 MG TABLET] 180 tablet 1 Sig: TAKE ONE TABLET DAILY FOR 2 WEEKS THEN TWO TABLETS DAILY FOR 2 WEEKS THEN TAKE THE 100 MG BY MOUTH DAILY escitalopram oxalate (LEXAPRO) 10 mg tablet [Pharmacy Med Name: ESCITALOPRAM 10 MG TABLET] 90 tablet 1 Sig: TAKE 1 TABLET BY MOUTH EVERY DAY Please process accordingly Corinne Caicedo [facility] 07-04-2023 Miscellaneous Notes The following medication(s) is being requested: LAST APPT - 06/12/23 NEXT APPT - 07/09/23 Requested Prescriptions Pending Prescriptions Disp Refills lamoTRIgine (LAMICTAL) 25 mg tablet [Pharmacy Med Name: LAMOTRIGINE 25 MG TABLET] 180 tablet 1 Sig: TAKE ONE TABLET DAILY FOR 2 WEEKS THEN TWO TABLETS DAILY FOR 2 WEEKS THEN TAKE THE 100 MG BY MOUTH DAILY escitalopram oxalate (LEXAPRO) 10 mg tablet [Pharmacy Med Name: ESCITALOPRAM 10 MG TABLET] 90 tablet 1 Sig: TAKE 1 TABLET BY MOUTH EVERY DAY Please process accordingly Corinne Caicedo documented in this encounter [facility] 07-02-2023 Instructions Mitra Reed APRN.DOCTOR ASSISTANT - 07/02/2023 2:07 PM EDT SMOKING CESSATION Stopping smoking is the most important thing you can do to protect your current and future health, as well as that of your family. It is the most potent risk factor for the future development of coronary artery disease and heart attacks. Smoking is both an addiction and a learned behavior. The nicotine withdrawal takes anywhere from 2-4 weeks and results in symptoms such as irritability, fatigue, insomnia, coughing, dizziness, poor concentration, hunger and cigarette cravings. After the nicotine withdrawal period, the learned linkage between certain acts or situations and cigarette use remain. Strategies to deal with these must be developed along with new behaviors to ensure successful smoking cessation. STRATEGIES TOWARD SMOKING CESSATION - Make a list of the reasons why you want to quit, plus the benefits to be gained, and compare them to the reasons why you should continue to smoke. - Pick a specific quit date. - If you are interested in using nicotine patches or gum to assist with the nicotine withdrawal, let the staff know. - Inform friends, family, and co-workers that you are quitting and when your quit date is. Ask for their understanding and support. - Prepare your environment by removing all cigarettes prior to your quit date. - Prior to your quit date, avoid smoking in places where you spend a lot of time (such as the house, work, car). - From previous quit attempts, identify what helped you to stop smoking. - From previous quit attempts, identify what triggered relapse. How can you avoid that again? - What things (situations, emotions) do you anticipate will be most challenging, especially in the first few weeks, to your quitting effort? - What can you do to address these challenges? - Avoid (or limit) alcohol consumption during the quitting process. - If your spouse or close coworker currently smoke, consider quitting together or at the very least, develop specific plans to maintain your cigarette abstinence while in the home or at work. - Take each day, each hour, each craving, one at a time. Every step or action you take toward smoking cessation is a success. The only failure is the failure to try. - The health of you and your family, is worth the effort. STOP SMOKING CHECK LIST Preparing to Quit: ___ Make a personal pact with yourself to quit. ___ Pick a date for quitting completely. (My date to quit is ____.) ___ Write down on a card the three most important reasons for quitting. Carry the card with you from now on. Look at it several times a day. ___ Prior to quitting, eliminate smoking completely in 2 or 3 of your high risk situations. ___ Reduce consumption to one pack per day or less. ___ Change to a less desirable brand of cigarettes. ___ Discard your corporate risk analyst. Use matches. Carry your cigarettes in a different place. ___ Spend a little time each day picturing in your mind stressful events occurring in the future and you not smoking. Actual Quitting: The First Two Weeks ___ Get rid of all cigarettes. Put away all smoking related objects such as ashtrays. Ask the people you live with not to smoke in your presence for the first two weeks. ___ Spend as much time as possible with non-smoking people. ___ Keep busy, especially on evenings and weekends. ___ Avoid high risk situations (large parties, bars, etc.). ___ Spend lots of time in places that prohibit or discourage smoking (e.g., theaters, libraries.) ___ Drink plenty of fluids. ___ Don't substitute food or sugar based products for cigarettes. Use approved substitutions. (... ice water, high bulk/low calorie foods, sugarless gum, mouthwash, brushing teeth.) ___ Begin or increase regular exercise program. ___ When experiencing withdrawal effects: 1. Remind yourself why you are quitting (from your card). 2. Remind yourself that whatever discomfort you are experiencing is only a tiny fraction of the probable discomfort associated with continued smoking. 3. Practice deep breathing or other relaxation techniques - tapes. ___ Remind yourself that you can free yourself from this unhealthy, expensive, messy habit and become a non-smoker. Maintenance of Quitting: After two weeks ___ Remind yourself that the desire to smoke is linked to a great many situations, people and emotional stress. ___ When you do have a desire to smoke, remember that it only lasts a few seconds: distract yourself and leave the situation if necessary. ___ After each desire to smoke has passed, pat yourself on the back, you have just made progress in breaking the habit forever. ___ Save the money on wasted on cigarettes in a special fund and buy yourself something nice. Maintenance of Quitting: After Two Months ___ Be particularly vigilant when unusual life events occur. (.. weddings, holidays, vacations.) ___ Be particularly vigilant when stressful life events occur (e.g., relationship problems, financial or work problems.) ___ Remind yourself regularly that not smoking is completely within your personal control. ___ Never lull yourself into thinking you are out of danger and you can safely have a cigarette or two. -- you cannot!!!!! ___ If, by chance, you do slip and have one or more cigarettes, do not conclude that all is lost. Return to complete abstinence immediately and learn from your experience. ___ If you have gained significant weight since quitting, now is the time to do something about it. ___ Each time you see a cigarettes advertisement, remind yourself of why you quit. Also remember that a [employer] spends billions of dollars each year trying to get people like yourself re-hooked. The patient's goal is to quit by (insert month/year) Nicotine Lozenge What is this medicine? NICOTINE helps people stop smoking. This medicine replaces the nicotine found in cigarettes and helps to decrease withdrawal effects. It is most effective when used in combination with a stop-smoking program. Some common brand names for nicotine lozenge include Nicorette and Thrive . What should I tell my health care provider before I take this medicine? Tell your health care provider what health conditions you have, including (but not limited to): heart disease, angina, irregular heartbeat or recent heart attack high blood pressure diabetes overactive thyroid pheochromocytoma stomach problems or ulcers How should I use this medicine? When you feel an urgent desire for a cigarette, place one lozenge in the mouth. Suck on the lozenge and occasionally move lozenge from one side of the mouth to the other until it is completely dissolved (about 20-30 minutes). Only use one lozenge at a time as directed. Do not use the lozenges more often than directed. Do not eat or drink 15 minutes before using or while lozenge is in the mouth. Where should I keep my medicine? Keep out of the reach of children. Store at room temperature, away from light. Throw away any unused medicine after the expiration date. What may interact with this medicine? Give your health care provider a list of all the medicines, herbs, non-prescription drugs, or dietary supplements you use. Also tell them if you smoke, drink alcohol, or use illegal drugs. Some substances may interact with your medicine. What should I watch for while using this medicine? Always carry the nicotine lozenge with you. Do not use more than 20 lozenges a day. Too many lozenges can increase the risk of an overdose. As the urge to smoke gets less, gradually reduce the number of lozenges each day over a period of 2 to 3 months. You should begin using the nicotine lozenge the day you stop smoking. It is okay if you do not succeed with the attempt to quit and have a cigarette. You can still continue your quit attempt and keep using the product as directed. Just throw away your cigarettes and get back to your quit plan. What side effects may I notice from receiving this medicine? Notify your health care provider if you notice any side effects from taking this medication. Possible side effects include headache, mouth irritation, sore throat, upset stomach, heartburn, hiccups, jaw pain, abnormal dreams, or sleep disturbance. Seek medical attention right away if you have an allergic reaction like skin rash, itching or hives, swelling of the face, lips, or tongue, or breathing problems after taking nicotine gum. Watch for changes in heart rate or increased blood pressure. This list does not describe all possible side effects. Contact your health care provider or pharmacist for medical advice about side effects. This sheet is a summary and does not cover all possible information. If you have additional questions about this medicine, talk to your healthcare provider or pharmacist. You may ask your primary care provider for a referral to a clinical pharmacist for a comprehensive review of all your medications. documented in this encounter [facility] 07-02-2023 History of Present illness Narrative Subjective Keagan Alicia is a 22 year old female here today for ER follow-up. I reviewed past medical, surgical, social, and family histories today and updated chart. Allergies, chronic medications, and supplements were also reviewed. HPI Gallbladder removed on 06/17/[address] Llanes @ [facility] Went home same day Went to [facility] on 06/18/23 because of vomiting, could not hold down any fluids Returned to [facility] on 06/19/23 d/t intractable vomiting. She was admitted overnight. HIDA scan completed and was negative for biliary leak. CT A/P done showing diffuse infectious colitis. She was treated with IV cipro, IV metronidazole, IV famotidine. She was discharged home on 06/20/23 Patient states she was called the next morning telling her she has a blood clot in her lung. She went back to [facility] on 06/21/23 to get confirmation lung scan. She was started on Eliquis. She went to [facility] on 06/22/23 for ongoing pain, nausea, vomiting, chills, shakiness. Labs completed showing mildly low potassium and glucose. UA negative for infection. CT A/P performed - normal. She was treated with IV fluids and zofran. Discharged home. Went to [facility] on 06/24/23 for numbness in her feet, heavy vaginal bleeding. Labs and CT A/P performed - normal Patient saw her POWER OPERATOR Dr Ortez on 06/26/23 - negative GC, trichomonas. Mirena IUD was placed. Patient saw administrative dietitian Dr. Miki Jaramillo [facility] earlier today. She is scheduled for US BLE and heart monitor. Planned to complete Eliquis x 3 months, then will have clotting labs completed. 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 - Dr Fernando Noriega She does have shortness of breath and chest pain She does smoke and wants to quit - She vapes nicotine - 5 mg Can't use nicotine patches because it caused allergic reaction to skin Can't chew the gum due to braces She sees psychiatrist once a month Has not tried lamictal yet, leary of it - worried about the side effects and has too much going on right now She is compliant with Effexor, lexapro Has trouble sleeping - on Gabapentin 600 mg at night Stomach hurts on and off Healing okay Dr Llanes surgeon follow up is schedule on Still getting very nauseated Takes zofran and it helps No recent fevers PAST MEDICAL HISTORY Diagnosis Date Anemia Chronic tonsillitis Depression 10/08/2016 Gall stone 07/2022 cholecystectomy after delivery Postoperative pulmonary embolism (HCC) 06/2023 Psychiatric disorder depression, anxiety and PTSD PAST SURGICAL HISTORY Procedure Laterality Date CHOLECYSTECTOMY HX 06/17/2023 [facility] TONSILLECTOMY HX ALLERGIES Latex MEDICATIONS apixaban (ELIQUIS) 5 mg tab(s)^Take 5 mg by mouth.^Disp: ^Rfl: levonorgestrel (MIRENA) 21 mcg/24 hours (8 yrs) 52 mg IUD^1 Each by INTRAUTERINE route as directed.^Disp: 1 Each^Rfl: 0 escitalopram oxalate (LEXAPRO) 10 mg tablet^Take 1 tablet by mouth once daily.^Disp: 30 tablet^Rfl: 0 gabapentin (NEURONTIN) 300 mg capsule^take one po bid and 2 tablets po qhs^Disp: 90 capsule^Rfl: 2 venlafaxine ER (EFFEXOR XR) 150 mg 24 hr capsule^TAKE 1 CAPSULE BY MOUTH EVERY DAY^Disp: 90 capsule^Rfl: 1 lamoTRIgine (LAMICTAL) 25 mg tablet^take one tablet daily for 2 weeks then two tablets daily for 2 weeks then take the 100 mg po daily^Disp: 60 tablet^Rfl: 0 (Patient not taking: Reported on 07/02/2023) ARIPiprazole (ABILIFY) 5 mg tablet^take one half tablet daily in am for a week then take one tablet daily in am^Disp: 30 tablet^Rfl: 0 (Patient not taking: Reported on 06/26/2023) venlafaxine ER (EFFEXOR XR) 150 mg 24 hr capsule^Take 1 capsule by mouth once daily.^Disp: 30 capsule^Rfl: 0 (Patient not taking: Reported on 06/26/2023) cyclobenzaprine (FLEXERIL) 10 mg tablet^Take 1 tablet by mouth three times a day as needed for muscle spasm (or pain). Patient should start on May 20, 2023.^Disp: 21 tablet^Rfl: 0 (Patient not taking: Reported on 06/26/2023) gabapentin (NEURONTIN) 300 mg capsule^Take 1 capsule by mouth daily at bedtime for 30 days.^Disp: 30 capsule^Rfl: 0 (Patient not taking: Reported on 06/26/2023) FAMILY HISTORY Problem Relation Age of Onset other (migraines) Mother None Father Ovarian cancer Maternal Grandmother Social History Tobacco Use Smoking status: Never Passive exposure: Yes Smokeless tobacco: Never Tobacco comments: Vapes Vaping Use Vaping Use: current everyday user Substances: Nicotine Substance Use Topics Alcohol use: No Drug use: No Review of Systems Constitutional: Negative for appetite change, chills, fatigue, fever and unexpected weight change. HENT: Negative for congestion, ear pain, rhinorrhea and sore throat. Eyes: Negative for pain, discharge, itching and visual disturbance. Respiratory: Negative for cough, shortness of breath and wheezing. Cardiovascular: Negative for chest pain, palpitations and leg swelling. Gastrointestinal: Positive for abdominal pain and nausea. Negative for constipation, diarrhea and vomiting. Genitourinary: Negative for difficulty urinating. Skin: Negative for rash. Neurological: Positive for tremors and numbness. Negative for dizziness, weakness and headaches. Psychiatric/Behavioral: Positive for dysphoric mood and sleep disturbance. The patient is nervous/anxious. Objective BP 100/60 Pulse 87 Temp 98.5 Ht 5' 3 (1.60m) Wt 115 lb (52.2kg) SpO2 99% LMP 06/22/2023 BMI 20.38 kg/(m^2). Physical Exam Constitutional: Appearance: Normal appearance. She is not toxic-appearing. HENT: Mouth/Throat: Lips: [place]. Mouth: Mucous membranes are moist. Pharynx: Oropharynx is clear. Eyes: General: No scleral icterus. Cardiovascular: Rate and Rhythm: Normal rate and regular rhythm. Heart sounds: Normal heart sounds. No murmur heard. Pulmonary: Effort: Pulmonary effort is normal. Breath sounds: Normal breath sounds. No wheezing or rales. Abdominal: General: Bowel sounds are normal. There is no distension or abdominal bruit. Palpations: Abdomen is soft. There is no hepatomegaly, splenomegaly or mass. Tenderness: There is abdominal tenderness in the right upper quadrant. There is right CVA tenderness and left CVA tenderness. Comments: Abdominal incisions are dry and intact, no surrounding redness or edema Musculoskeletal: Right lower leg: No edema. Left lower leg: No edema. Skin: General: Skin is warm and dry. Findings: No bruising or rash. Neurological: General: No focal deficit present. Mental Status: She is alert and oriented to person, place, and time. Sensory: Sensation is intact. Motor: Motor function is intact. Coordination: Coordination is intact. Psychiatric: Attention and Perception: Attention and perception normal. Mood and Affect: Affect normal. Mood is depressed. Speech: Speech normal. Behavior: Behavior normal. Behavior is cooperative. Thought Content: Thought content normal. The following results were copied and pasted from Records found in [facility]: HEPATOBILIARY SCAN (HIDA) The patient received an intravenous dose of 6 mCi of Tc-99m mebrofenin (Choletec). Sequential images of the upper abdomen were then acquired over the next 60 minutes. Right lateral images were obtained. FINDINGS: There is prompt accumulation of activity within the liver and normal subsequent excretion via the biliary ductal system into the small bowel. There is nonvisualization of the gallbladder consistent with history of prior cholecystectomy. There is no evidence of radiotracer extravasation to suggest bile leak. Note is made of enterogastric reflux. Impression: Patient is status post cholecystectomy, without evidence of radiotracer extravasation to suggest bile leak. Enterogastric reflux is noted. CT abdomen pelvis w IV contrast Final Result 1. Diffuse infectious colitis from the cecum to rectum most pronounced within the ascending and proximal transverse colon. 2. Moderate amount of free fluid in the dependent pelvic recesses measuring upper limits of normal for simple vs complicated, associated with mild thin peritoneal enhancement, features suggesting an inflammatory component; therefore, the possibility of peritonitis is raised. 3. Trace serosanguineous fluid in the gallbladder fossa without loculation. 4. Small volume pneumoperitoneum, likely relating to recent postoperative status. Addendum by Young Foss MD on 06/21/2023 7:33 AM EDT Interpreted By: Young Foss, ADDENDUM: Young Foss discussed the significance and urgency of this critical finding by telephone with Dr. Llanes on 06/21/2023 at 7:23 am. (-RCF-) Findings: At 7:12 a.m., 06/11/2023, I was alerted to the possibility of a pulmonary embolism on this patient's CT abdomen/pelvis. Upon additional review, there is a short segment filling defect seen on 2 slices (axial image 3-4, series 2) within a subsegmental pulmonary artery branch corresponding to the posterior segment of the right lower lobe. This filling defect appears sufficiently discrete and central to likely represent a subsegmental nonocclusive pulmonary embolism. Immediately, the patient's treating physician, Dr. Llanes, was notified of these results via telephone at the time stamp above. It was agreed that the patient, despite not displaying a overt pulmonary symptoms, should be reassessed in the emergency department and to include additional imaging of the chest with CT pulmonary embolism protocol to evaluate for any additional pulmonary emboli and to consider obtaining duplex ultrasounds of the lower extremities to evaluate for underlying DVT. STUDY: CT ANGIO CHEST FOR PULMONARY EMBOLISM; 06/21/2023 9:16 am INDICATION: Signs/Symptoms:dyspnea. History of laparoscopic cholecystectomy on 06/17/2023 with subsegmental pulmonary embolus demonstrated in right lower lobe on CT examination of abdomen and pelvis from 06/19/2023 COMPARISON: None.. ACCESSION NUMBER(S): [id number] ORDERING CLINICIAN: SATURNINO VELÁZQUEZ TECHNIQUE: CT angiography (non-coronary) of the chest was performed with Intravenous contrast material along with 3D (maximum intensity projection - MIP) image post processing and coronal reformatted images. 72 ml Omnipaque 350 was injected intravenously. FINDINGS: Confirmed is the presence of a non occluding embolus within a subsegmental branch supplying right lower lobe as noted on CT examination of abdomen and pelvis from 06/19/2023. No additional pulmonary emboli are seen. No right heart failure. Free intraperitoneal air secondary to recent laparoscopic cholecystectomy. Results were communicated via secure chat to Dr. Velázquez at 9:33 a.m. on 06/21/2023. The secure chat was acknowledged by Dr. Velázquez at 9:34 a.m.. The bolus is of adequate quality for diagnosis of pulmonary embolism. Pulmonary arteries: Confirmed is the presence of a non occluding embolus within a subsegmental branch supplying the posterior basal segment of right lower lobe. No additional pulmonary emboli are seen. No central pulmonary emboli are present. There is no large embolic burden identified. Aorta: No sign of aortic aneurysm or aortic dissection. Heart: Unremarkable. No pericardial effusion. No right heart strain is observed. Lymph nodes: No pathologically enlarged lymph nodes are noted. Lungs: There are no infiltrates. Lungs are clear. No pulmonary infarct is seen. Pleural spaces: There is no significant pleural effusion or pneumothorax. Bones: Unremarkable. Upper abdomen: Free intraperitoneal air is seen within upper abdomen as a result of the recent laparoscopic cholecystectomy. There are surgical clips within gallbladder fossa. Signed by: Rosa Chavarria 06/21/2023 9:34 AM Dictation workstation: [id number] Latest Ref Rng 06/22/2023 WBC 3.70 - 11.00 k/uL 5.32 RBC 3.90 - 5.20 m/uL 4.93 Hemoglobin 11.5 - 15.5 g/dL 14.0 Hematocrit 36.0 - 46.0 % 42.1 MCV 80.0 - 100.0 fL 85.4 MCH 26.0 - 34.0 pg 28.4 MCHC 30.5 - 36.0 g/dL 33.3 RDW-CV 11.5 - 15.0 % 14.6 Platelet Count 150 - 400 k/uL 210 MPV 9.0 - 12.7 fL 11.4 Neut% % 51.1 Abs Neut (ANC) 1.45 - 7.50 k/uL 2.72 Lymph% % 38.5 Abs Lymph 1.00 - 4.00 k/uL 2.05 [place]% % 5.8 Abs [place] <0.87 k/uL 0.31 Eosin% % 3.8 Abs Eosin <0.46 k/uL 0.20 Baso% % 0.6 Abs Baso <0.11 k/uL 0.03 Immature Gran % % 0.2 IMMATURE GRANS (ABS) <0.10 k/uL <0.03 NRBC /100 WBC 0.0 Absolute nRBC <0.01 k/uL <0.01 DTYPE Auto Lipase 16 - 61 U/L 32 Magnesium 1.7 - 2.3 mg/dL 1.7 ASSESSMENT/PLAN: 1. Nausea and vomiting, unspecified vomiting type - ICD9: 787.01, ICD10: R11.2 (primary diagnosis) Continue care with general surgery Continue zofran as needed - ONDANSETRON HCL 4 MG TABLET 2. S/P cholecystectomy - ICD9: V45.79, ICD10: Z90.49 Has follow-up with general surgery scheduled 3. Single subsegmental pulmonary embolism without acute cor pulmonale (HCC) - ICD9: 415.19, ICD10: I26.93 Continue Eliquis Continue care with hematology Dr Jaramillo 4. Vapes nicotine containing substance - ICD9: 305.1, ICD10: Z72.0 - Cessation encouraged. - Physiologic and physical aspects of tobacco addiction as well as strategies for quitting were discussed. - Counseling was given focusing on the harmful effects of this addiction especially given the patient's medical condition(s) which will be worsened because of the chemicals in tobacco. - Prescription for nicotine replacement given - CONSULT TO SMOKING CESSATION - NICOTINE (POLACRILEX) 2 MG BUCCAL LOZENGE Mitra Reed APRN.CNP documented in this encounter [facility] 07-02-2023 History of Present illness Narrative Patient ID:Keagan Alicia is a 22 y.o. year old female patient with a history of pulmonary embolus Referring Physician: Saturnino Velázquez [address] Department [place] [address] Primary Care Provider: Rachell Amador APRN-ULISSES Chief Complaint Chief Complaint Patient presents with Pulmonary Embolism She is here today as a new patient accompanied by her mother. History of the Present Illness 06/03/2023. Seen by Dr. Llanes for reevaluation of cholelithiasis. She had previously evaluated her when she was 22 weeks . She came back and after her with 2 isolated episodes of right upper quadrant pain that radiated into her back after eating fast food associated with nausea and vomiting. Between these episodes she was symptom-free. Liver function tests and white blood count was normal. Ultrasound did confirm gallstones. There is no biliary ductal dilatation. She had delivered in December. Her physical examination was not remarkable. Plans were made to go ahead with laparoscopic cholecystectomy on 06/17/2023. 06/12/2023. Telemedicine visit with her counselor Dr. Dipti Freed for depression. Using marijuana for her mood swings and also for pain control. 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 She was started on venlafaxine. 06/17/2023. She underwent laparoscopic cholecystectomy without any difficulty. She was discharged in 3 hours. 06/18/2023. Postop telephone call from the office at which time the patient said that 2 Percocets were not helping her pain and the pain was 10 out of 10. She was taking ibuprofen and Tylenol as well. Dr. Llanes told her that if her pain was severe she needed to go to the emergency department. She was given a refill on her Percocet. Patient also complained of nausea and chills vomiting and weakness. Zofran was prescribed. 06/18/2023. Emergency department visit for the symptoms. CMP showed calcium of 3.4. Calcium was 8.4 total protein was 6.1 and ALT was 58. CBC was normal except for MCHC which was slightly low and RDW which was slightly high. Her potassium was repleted and she was given pain medication and discharged home with an essentially negative examination. She had some ketones in her urine and the urine color was hazy yellow. 06/18 through 06/20/2023. She returned to the emergency room with persistent nausea vomiting abdominal pain and diarrhea. She said that every time she took anything by mouth she vomited. She said that her symptoms were worse. Her abdomen looked as if she was healing well. Repeat laboratory data showed white count 5000. Potassium is now normal. Bicarbonate was low as was serum sodium at 130. AST was 56 ALT was 26. CAT scan of the abdomen and pelvis showed what was felt to be diffuse infectious colitis from the cecum to the rectum most pronounced within the ascending and transverse colon with a moderate amount of free fluid in the dependent pelvic recesses with associated mild thin peritoneal enhancement suggesting an inflammatory component. There is a small pneumoperitoneum related to recent postoperative status. HIDA scan was negative for biliary leak. Dr. Llanes was consulted. 06/19/2023. Dr. Llanes said that if the HIDA scan had been positive she would refer her for ERCP with stent placement. She was n.p.o. overnight with ice chips. When this test was negative she ordered a clear liquid diet. She was discharged home on 06/20/2023. She was treated with intravenous and ask. 06/21/2023. Dr. Llanes was contacted by radiology who had found a small pulmonary embolism 9 initially reported. She recommended the patient come back to the ED for dedicated scan of the chest to evaluate for any other larger pulmonary emboli and to discuss starting anticoagulation. 06/21/2023. Seen in the emergency department because this problem patient said that she has mild shortness of breath but denied any chest pain nausea vomiting urinary tract symptoms but continues to have some postoperative abdominal pain. Repeat CBC showed white count 5.1 platelet count was 199,000 H&H were 14 and 44 respectively with 54% polys. Sugar was 68 sodium was 133 BUN and creatinine were 10 and 0.89. Liver function test were normal. CTA confirmed the presence of a nonoccluding embolus within the subsegmental branch supplying the right lower lobe as noted on CT scan of the abdomen and pelvis from 06 18. No additional pulmonary emboli were seen. No right heart failure was seen. Anticoagulation was discussed with patient and she was started on Eliquis. She was referred to primary care hematology vascular cardiology for follow-up. 06/24/2023. Seen by Megan Berg physician accounts receivable assistant and emergency medicine. She presented with numbness in both of her feet. She said that she was having heavy vaginal bleeding. She had had her menstrual cycles for 3 months leading daily and she noted an increase in the bleeding recently. She was concerned about the tingling in her toes. Her physical examination was unremarkable. She had been seen at another emergency department for the same complaints the same day. She had a pelvic examination. She was discharged home. She had called her family doctor and was instructed to come to a different emergency room to get a different opinion. She had another CT scan which confirmed the above mention pulmonary embolus and no new findings. Urine culture grew no growth. 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 06/25/2023. Seen by Dr. Fernando Noriega because of her pulmonary embolus and side effects of Eliquis. She felt that this was likely a provoked event and noted that the patient had been smoking and vaping. She ordered a lower extremity venous duplex to rule out concomitant DVT. She felt that treatment with Eliquis for 3 months was appropriate and that it can be stopped and she could be monitored. Patient was told to change from the loading dose of Eliquis to the maintenance dose of 5 mg twice a day and continue to monitor. This improves her bleeding. Patient also complained of palpitations and a Holter monitor was ordered. Interval Note 07/02/2023. She is here with her mother Leeann in follow-up. She has had no previous bleeding or clotting problems. There is no family history of blood clotting problems. The patient says that she started having shakiness and dizziness with shortness of breath when she exerts herself such as going up and down stairs. She thinks that the shakiness and dizziness may be related to the Eliquis. She shows me on her phone that this can be a side effect of this medication. It also looks like it may be from the underlying disease process. The patient says that she is still smoking she is strongly encouraged to stop this. She has had no other problems with nausea or vomiting. She has had intermittently low sugars. She says that she eats once a day. Encouraged her to have some protein based food earlier in the day so that she does not be so shaky and dizzy. She knows that if she does get dizzy she should sit down before she falls down she has had no other bleeding specifically she has had no hemoptysis. She does have occasional bruises. She has had minimal nosebleeds. The patient says that she has been many times and has miscarried although officially she is 2 para 2. She thinks that she may have been 6 times. 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 She says that when she gets short of breath she has some occasional chest pains that would try in the center of her chest and lasted seconds and go away without any intervention he says that she has had numbness and tingling in her hands and feet for years. It is intermittent and may be positional. She says that her biological father had been diabetic he said that she had an elevated sugar once during one of her pregnancies. We discussed the recommendations of Dr. Fernando Noriega's with which I agree. When she is off of her Eliquis we will do hypercoagulability testing since many of these tests are confounded by the anticoagulation. She was informed that the state does make her more likely to have a blood clot. She knows that she is to seek medical attention if she has severe bleeding, pain and swelling in her legs or worsening shortness of breath. Comorbidities Depression Abdominal and back pain Anxiety and PTSD Monitoring Parameters History is on physical examinations, studies as dictated by her symptomatology. Review of Systems - Oncology Review of Systems Constitutional: Positive for fatigue and unexpected weight change. Negative for appetite change. HENT: Negative for dental problem, mouth sores, rhinorrhea and trouble swallowing. Eyes: Negative for visual disturbance. Respiratory: Positive for shortness of breath (occasionally). Negative for cough. Cardiovascular: Negative for leg swelling. Gastrointestinal: Negative for abdominal pain, constipation, diarrhea (looser stools), nausea and vomiting. Endocrine: Negative for polyuria. Genitourinary: Negative for dysuria, frequency, hematuria, urgency and vaginal bleeding. Musculoskeletal: Positive for arthralgias (occasional). Negative for myalgias. Skin: Negative for pallor. Neurological: Positive for weakness and light-headedness (occasional). Negative for tremors, syncope, numbness and headaches. Hematological: Bruises/bleeds easily. Psychiatric/Behavioral: Negative for self-injury, sleep disturbance and suicidal ideas. The patient is not nervous/anxious. Past Medical History Past Medical History: Diagnosis Date Anxiety Depression PTSD (post-traumatic stress disorder) Surgical History Past Surgical History: Procedure Laterality Date CHOLECYSTECTOMY 06/17/2023 TONSILLECTOMY Social History Social History Tobacco Use Smoking status: Every Day Types: Cigarettes Smokeless tobacco: Current Tobacco comments: vape Vaping Use Vaping status: Every Day Substances: Nicotine, THC, CBD Substance Use Topics Alcohol use: Never Drug use: Never Family History family history includes Heart attack in her paternal grandfather. Current Medications Current Outpatient Medications Medication Instructions apixaban (ELIQUIS) 5 mg, oral, 2 times daily escitalopram (LEXAPRO) 5 mg, oral, Daily gabapentin (NEURONTIN) 300 mg, oral, Nightly levonorgestrel (Mirena) 21 mcg/24 hr (8 yrs) 52 mg IUD 1 each, intrauterine venlafaxine XR (EFFEXOR-XR) 150 mg, oral, Daily RT venlafaxine XR (EFFEXOR-XR) 150 mg, oral, Daily, Do not crush or chew. OARRS Review I have personally reviewed the OARRS report for Keagan Nereidajuventino. I have considered the risks of abuse, dependence, addiction and diversion. Evaluation of this record shows that she has had recent prescriptions for oxycodone and gabapentin. Vital Signs BP 104/69 (BP Location: Right arm, Patient Position: Sitting, BP Cuff Size: Adult) Pulse 86 Temp 36.3 C (97.3 F) (Skin) Resp 16 Ht (S) 1.597 m (5' 2.87) Wt 52.5 kg (115 lb 12.8 oz) LMP 06/09/2023 (Exact Date) Comment: on period still SpO2 99% BMI 20.60 kg/m Physical Exam Vitals and nursing note reviewed. Exam conducted with a quality head present. Constitutional: General: She is not in acute distress. Appearance: She is normal weight. She is not ill-appearing or toxic-appearing. Comments: She is a thin white female with braces who is accompanied by her mother. She does not appear to be acutely or chronically ill. She has multiple tattoos. HENT: Head: Normocephalic and atraumatic. Nose: Nose normal. Mouth/Throat: Mouth: Mucous membranes are moist. Pharynx: Oropharynx is clear. No oropharyngeal exudate or posterior oropharyngeal erythema. Comments: Braces on her teeth Eyes: General: No scleral icterus. Extraocular Movements: Extraocular movements intact. Conjunctiva/sclera: Conjunctivae normal. Pupils: Pupils are equal, round, and reactive to light. Neck: Comments: There is no significant adenopathy that I can feel in the head neck region, supraclavicular, inguinal or axillary areas bilaterally. Cardiovascular: Rate and Rhythm: Regular rhythm. Tachycardia present. Heart sounds: No murmur heard. Pulmonary: Effort: Pulmonary effort is normal. No respiratory distress. Breath sounds: No wheezing, rhonchi or rales. Abdominal: General: Abdomen is flat. Palpations: There is no mass. Tenderness: There is no abdominal tenderness. There is no guarding. Comments: Healing surgical scars/ports from recent procedure without signs of infection or inflammation. Musculoskeletal: General: Normal range of motion. Cervical back: Normal range of motion and neck supple. No rigidity or tenderness. Right lower leg: No edema. Left lower leg: No edema. Comments: There is no significant swelling or tenderness in either extremity. Lymphadenopathy: Cervical: No cervical adenopathy. Skin: General: Skin is warm and dry. Coloration: Skin is pale. Skin is not jaundiced. Findings: Bruising (on legs bilaterally) present. Comments: Brown nevis on her right abdomen. A few bruises. Nothing is severe. Neurological: General: No focal deficit present. Mental Status: She is alert and oriented to person, place, and time. Mental status is at baseline. Motor: No weakness. Gait: Gait normal. Psychiatric: Mood and Affect: Mood normal. Behavior: Behavior normal. Thought Content: Thought content normal. Judgment: Judgment normal. Current Laboratory Data No results found for this or any previous visit (from the past 168 hour(s)). Recent Imaging CT abdomen pelvis w IV contrast Result Date: 06/24/2023 Interpreted By: Christa Gagnon, STUDY: CT ABDOMEN PELVIS W IV CONTRAST; 06/24/2023 8:08 pm INDICATION: Signs/Symptoms:pain. COMPARISON: 06/19/2023 ACCESSION NUMBER(S): [id number] ORDERING CLINICIAN: MEGAN BERG TECHNIQUE: Axial CT images of the abdomen and pelvis with coronal and sagittal reconstructed images obtained after intravenous administration of contrast FINDINGS: LOWER CHEST: There is a persistent nonocclusive filling defect in a subsegmental branch of the right lower lobe, consistent with the known acute pulmonary embolism. BONES: No acute osseous abnormality. ABDOMINAL WALL: Within normal limits. ABDOMEN: LIVER: Hypodensity adjacent to the falciform ligament, likely focal fatty infiltration. BILE DUCTS: No biliary dilatation. GALLBLADDER: Status post cholecystectomy. Trace residual fluid in the cholecystectomy bed, consistent with recent surgery. No organized fluid collection. PANCREAS: Within normal limits. SPLEEN: Within normal limits. ADRENALS: Within normal limits. KIDNEYS and URETERS: Symmetric renal enhancement. No hydronephrosis or perinephric fluid collection. VESSELS: No aortic aneurysm. RETROPERITONEUM: No pathologically enlarged retroperitoneal lymph nodes. PELVIS: REPRODUCTIVE ORGANS: Follicular changes noted in the ovaries. The uterus is unremarkable. BLADDER: Within normal limits. BOWEL: No dilated bowel. Normal appendix. PERITONEUM: No pneumoperitoneum or organized fluid collection. Small amount of simple free pelvic fluid, decreased from 06/19/2023. previously described peritoneal enhancement is not apparent on this examination. Postsurgical changes of recent cholecystectomy. No fluid collection in the surgical bed. No evidence of acute abdominal or pelvic abnormality. Acute subsegmental pulmonary embolism in the right lower lobe, described on PE CT dated 06/21/2023. MACRO: None Signed by: Christa Gagnon 06/24/2023 9:10 PM Dictation workstation: [id number] ECG 12 lead Result Date: 06/23/2023 Normal sinus rhythm Rightward axis Borderline ECG When compared with ECG of 11-MAY-2024 07:53, (unconfirmed) Vent. rate has decreased BY 38 BPM QRS voltage has increased Nonspecific T wave abnormality now evident in Inferior leads CT abdomen pelvis w IV contrast Result Date: 06/22/2023 * * *Final Report* * * DATE OF EXAM: Jun 22 2023 2:12PM [facility] [place] 0530 - CT ABD/PEL W IVCON / PROCEDURE REASON: Abdominal abscess/infection suspected * * * * Physician Interpretation * * * * EXAMINATION: CT ABDOMEN AND PELVIS WITH IV CONTRAST CLINICAL HISTORY: TECHNIQUE: CT of the abdomen and pelvis was performed using standard technique, scanning from just above the dome of the diaphragm to the symphysis pubis. MQ: CTAP_3 Contrast: IV: 100 ml of Omnipaque 350 : ml of CT Radiation dose: Integrated Dose-length product (DLP) for this visit = 149 mGy*cm. CT Dose Reduction Employed: Automated exposure control(AEC) and iterative recon COMPARISON: None. RESULT: Liver: No mass. Biliary: No bile duct dilation. Gallbladder is absent. Spleen: No mass. No splenomegaly. Pancreas: No mass or duct dilation. Adrenals: No mass. Kidneys: No mass, calculus or hydronephrosis. GI tract: No dilation or wall thickening. The appendix is normal. Lymph nodes: No abdominal or pelvic lymphadenopathy. Mesentery/Peritoneum: No ascites or mass. Retroperitoneum: No mass. Vasculature: - Abdominal aorta and iliac arteries: No aneurysm. - Celiac and SMA: Patent without stenosis. - Portal venous system (SMV, splenic vein, portal vein and branches): Patent. - Hepatic veins: Patent. Pelvis: No mass, ascites or fluid collection. A retroverted uterus is present. Bones/Soft Tissues: No significant finding. Lower thorax: Unremarkable. Localizer images: Unremarkable. IMPRESSION: No evidence of an acute intra-abdominal or pelvic process Maintenance Mechanic Telephone: PSCB Transcribe Date/Time: Jun 22 2023 2:23P Dictated by : BRISSA FAIRBANKS MD This examination was interpreted and the report reviewed and electronically signed by: BRISSA FAIRBANKS MD on Jun 22 2023 2:29PM EST CT angio chest for pulmonary embolism Result Date: 06/21/2023 Interpreted By: Rosa Chavarria, STUDY: CT ANGIO CHEST FOR PULMONARY EMBOLISM; 06/21/2023 9:16 am INDICATION: Signs/Symptoms:dyspnea. History of laparoscopic cholecystectomy on 06/17/2023 with subsegmental pulmonary embolus demonstrated in right lower lobe on CT examination of abdomen and pelvis from 06/19/2023 COMPARISON: None.. ACCESSION NUMBER(S): [id number] ORDERING CLINICIAN: SATURNINO VELÁZQUEZ TECHNIQUE: CT angiography (non-coronary) of the chest was performed with Intravenous contrast material along with 3D (maximum intensity projection - MIP) image post processing and coronal reformatted images. 72 ml Omnipaque 350 was injected intravenously. FINDINGS: The bolus is of adequate quality for diagnosis of pulmonary embolism. Pulmonary arteries: Confirmed is the presence of a non occluding embolus within a subsegmental branch supplying the posterior basal segment of right lower lobe. No additional pulmonary emboli are seen. No central pulmonary emboli are present. There is no large embolic burden identified. Aorta: No sign of aortic aneurysm or aortic dissection. Heart: Unremarkable. No pericardial effusion. No right heart strain is observed. Lymph nodes: No pathologically enlarged lymph nodes are noted. Lungs: There are no infiltrates. Lungs are clear. No pulmonary infarct is seen. Pleural spaces: There is no significant pleural effusion or pneumothorax. Bones: Unremarkable. Upper abdomen: Free intraperitoneal air is seen within upper abdomen as a result of the recent laparoscopic cholecystectomy. There are surgical clips within gallbladder fossa. Confirmed is the presence of a non occluding embolus within a subsegmental branch supplying right lower lobe as noted on CT examination of abdomen and pelvis from 06/19/2023. No additional pulmonary emboli are seen. No right heart failure. Free intraperitoneal air secondary to recent laparoscopic cholecystectomy. Results were communicated via secure chat to Dr. Velázquez at 9:33 a.m. on 06/21/2023. The secure chat was acknowledged by Dr. Velázquez at 9:34 a.m.. Signed by: Rosa Chavarria 06/21/2023 9:34 AM Dictation workstation: [id number] CT abdomen pelvis w IV contrast Addendum Date: 06/21/2023 Interpreted By: Young Foss, ADDENDUM: Young Foss discussed the significance and urgency of this critical finding by telephone with Dr. Llanes on 06/21/2023 at 7:23 am. (-RCF-) Findings: At 7:12 a.m., 06/11/2023, I was alerted to the possibility of a pulmonary embolism on this patient's CT abdomen/pelvis. Upon additional review, there is a short segment filling defect seen on 2 slices (axial image 3-4, series 2) within a subsegmental pulmonary artery branch corresponding to the posterior segment of the right lower lobe. This filling defect appears sufficiently discrete and central to likely represent a subsegmental nonocclusive pulmonary embolism. Immediately, the patient's treating physician, Dr. Llanes, was notified of these results via telephone at the time stamp above. It was agreed that the patient, despite not displaying a overt pulmonary symptoms, should be reassessed in the emergency department and to include additional imaging of the chest with CT pulmonary embolism protocol to evaluate for any additional pulmonary emboli and to consider obtaining duplex ultrasounds of the lower extremities to evaluate for underlying DVT. Signed by: Young Foss 06/21/2023 7:33 AM -------- ORIGINAL REPORT -------- Dictation workstation: [id number] Result Date: 06/21/2023 Interpreted By: Young Foss, STUDY: CT ABDOMEN PELVIS W IV CONTRAST; 06/19/2023 7:55 pm INDICATION: Signs/Symptoms:recent cholecystectomy, nausea, vomiting, increased pain. Postoperative day to COMPARISON: None. ACCESSION NUMBER(S): [id number] ORDERING CLINICIAN: EUGENE CARCAMO TECHNIQUE: Contiguous axial images of the abdomen and pelvis were obtained after the intravenous administration of iodinated contrast. Coronal and sagittal reformatted images were reconstructed from the axial data. FINDINGS: LOWER CHEST: No acute abnormality. ABDOMEN/PELVIS: ABDOMINAL WALL: There is scattered soft tissue gas in the abdominal wall musculature and subcutaneous tissues related to recent laparoscopic cholecystectomy. There is mild edema in the periumbilical region. There is no abdominal wall fluid collection. LIVER: Hypoattenuation adjacent the falciform ligament likely representing focal fatty infiltration. No suspicious lesions. BILE DUCTS: The common bile duct is upper limits of normal measuring 0.7 cm without premature truncation or termination. There is minimal prominence of the right/left hepatic ducts. GALLBLADDER: Status post cholecystectomy. There is a trace amount of intermediate density fluid in the cholecystectomy bed measuring 2 cm x 1.1 cm x 0.6 cm, likely serosanguineous products. PANCREAS: No significant abnormality. SPLEEN: No significant abnormality. ADRENALS: No significant abnormality. KIDNEYS, URETERS, BLADDER: No significant abnormality. REPRODUCTIVE ORGANS: No significant abnormality. VESSELS: No significant abnormality. RETROPERITONEUM/LYMPH NODES: No enlarged lymph nodes. No acute retroperitoneal abnormality. BOWEL/MESENTERY/PERITONEUM: The stomach appears normal for degree of distention. The small bowel is normal in caliber without inflammatory change. However, there is diffuse inflammation and mild to moderate wall thickening of the colon that is more pronounced in the ascending and proximal transverse colon in which there is the greatest wall thickening, mucosal hyperenhancement, and surrounding fat stranding. There is liquid stool throughout the colon. There is small volume pneumoperitoneum. There is a trace amount of intermediate density fluid extending into the right paracolic gutter. However there is a moderate amount of fluid throughout the dependent pelvic recesses surrounding the uterus and in the bilateral adnexa and cul-de-sac measuring 15 HU in density. Also noted is mild, thin peritoneal enhancement in the region of the cul-de-sac. MUSCULOSKELETAL: No acute osseous abnormality. No suspicious osseous lesion. 1. Diffuse infectious colitis from the cecum to rectum most pronounced within the ascending and proximal transverse colon. 2. Moderate amount of free fluid in the dependent pelvic recesses measuring upper limits of normal for simple vs complicated, associated with mild thin peritoneal enhancement, features suggesting an inflammatory component; therefore, the possibility of peritonitis is raised. 3. Trace serosanguineous fluid in the gallbladder fossa without loculation. 4. Small volume pneumoperitoneum, likely relating to recent postoperative status. MACRO: None. Signed by: Young Foss 06/19/2023 8:23 PM Dictation workstation: [id number] [place] hepatobiliary Result Date: 06/20/2023 Interpreted By: Jonathan Shannon, Richard Melara STUDY: [place] HEPATOBILIARY; 06/20/2023 7:34 am INDICATION: Signs/Symptoms:rule out biliary leak. COMPARISON: None. ACCESSION NUMBER(S): [id number] ORDERING CLINICIAN: ALLA LLANES TECHNIQUE: DIVISION OF NUCLEAR MEDICINE HEPATOBILIARY SCAN ([place]) The patient received an intravenous dose of 6 mCi of Tc-99m mebrofenin (Choletec). Sequential images of the upper abdomen were then acquired over the next 60 minutes. Right lateral images were obtained. FINDINGS: There is prompt accumulation of activity within the liver and normal subsequent excretion via the biliary ductal system into the small bowel. There is nonvisualization of the gallbladder consistent with history of prior cholecystectomy. There is no evidence of radiotracer extravasation to suggest bile leak. Note is made of enterogastric reflux. Patient is status post cholecystectomy, without evidence of radiotracer extravasation to suggest bile leak. Enterogastric reflux is noted. I personally reviewed the images/study and I agree with the findings as stated. This study was interpreted at [place], [place]. MACRO: None Signed by: Jonathan Shannon 06/20/2023 10:09 AM Dictation workstation: [id number] Pathology Recent subsegmental pulmonary embolus after cholecystectomy Performance Status: Symptomatic; fully ambulatory Assessment/Plan 1. Recent subsegmental pulmonary embolus after cholecystectomy. This was an incidental finding. We do not know how long it has been there. She is now on anticoagulation. She seems to be tolerating this dose of Eliquis better than the loading dose and has had much less vaginal bleeding. I think that this was a precipitated event either from her cholecystectomy or from her recent . I agree with Dr. Fernando Noriega that she should be on anticoagulation for at least 3 months. After that she could be taken off the medication and monitored. That would be the time that I would check her for the possibility of hypercoagulability. We discussed this with her and orders were placed to be done after she is off anticoagulation. 2. Smoking. We talked about the fact that this also is an underlying cause for hypercoagulability and that she should stop smoking and vaping. 3. Multiple comorbidities. These include but are not limited to: Depression Abdominal and back pain Anxiety and PTSD. We will see her again after she has her hypercoagulability panel drawn after October. She knows that she can call if she has any change in her status, questions or concerns. Miki Jaramillo MD PT INSTRUCTED TO GET LABS 1 WEEK PRIOR TO APPT RTC 9/25 1100 FOR MD VISIT Reviewed AVS with patient- patient verbalizes understanding documented in this encounter [facility] Work Phone: 07-02-2023 Instructions Miki Jaramillo MD - 07/02/2023 8:00 AM EDT Reviewed labs and recent medical history. Discussed her recent pulmonary embolism and possible causes. Reviewed the need for genetic mutation testing to look for underlying abnormalities. Discussed getting this testing in 3 months once she has completed her Eliquis. Reviewed the side effects from Eliquis. Drug information provided. Discussed smoking cessation and she is continuing to work on this with her primary provider. She will continue her Eliquis as directed for next 3 months. She will have her blood checked in October. Lab orders placed. She will return to see MD at the end of October. documented in this encounter [facility] Work Phone: 06-26-2023 Instructions Tamie Steward LPN - 06/26/2023 1:46 PM EDT POST IUD INSTRUCTIONS You may have irregular bleeding during the first 3 months of use. You may have mild-severe cramping for the next 48 hours. You may use over the counter medication (Motrin, Tylenol) as needed. Your IUD must be removed or replaced based on the following table: IUD Type Removed or replaced within: Laura 3 years Kyleena 5 years Mirena 8 years Liletta 8 years Paragard 10 years Call the office for signs/symptoms of infection such as severe cramping, fever, or unusual bleeding. Check for string placement as instructed by your doctor. If you have any additional questions, please contact the office. documented in this encounter [facility] 06-26-2023 History of Present illness Narrative Keagan Alicia is a 22 year old female who presents for problem visit. HPI: Patient presents with irregular vaginal bleeding. She states the vaginal bleeding has slowed but at heaviest was 1 pad per hour. She has been to the ED for this. Everything started after she developed a PE after her gallbladder was removed. OB History T1 L2 SAB3 IAB0 Ectopic0 Multiple0 Live Births2 Comment: No D&Cs for missed abs Compensation Expert History LMP: 06/22/2023, Having periods Age at Menarche: Age at First : Age at Menopause: Compensation Expert History Comments: Sexual Activity: Yes; Male Contraception: No contraception data on record PAST MEDICAL HISTORY Diagnosis Date Anemia Chronic tonsillitis Depression 10/08/2016 Gall stone 07/2022 cholecystectomy after delivery Postoperative pulmonary embolism (HCC) 06/2023 Psychiatric disorder depression, anxiety and PTSD PAST SURGICAL HISTORY Procedure Laterality Date CHOLECYSTECTOMY HX 06/17/2023 [facility] TONSILLECTOMY HX FAMILY HISTORY Problem Relation Age of Onset other (migraines) Mother None Father Ovarian cancer Maternal Grandmother Social History Tobacco Use Smoking status: Never Passive exposure: Yes Smokeless tobacco: Never Tobacco comments: Vapes Vaping Use Vaping Use: current everyday user Substances: Nicotine Substance Use Topics Alcohol use: No Drug use: No Current Outpatient Medications Medication Sig apixaban (ELIQUIS) 5 mg tab(s) Take 5 mg by mouth. ondansetron orally disintegrating (ZOFRAN ODT) 4 mg disintegrating tablet Take 1 tablet by mouth every 6 hours as needed for nausea/vomiting for up to 7 days. escitalopram oxalate (LEXAPRO) 10 mg tablet Take 1 tablet by mouth once daily. gabapentin (NEURONTIN) 300 mg capsule take one po bid and 2 tablets po qhs venlafaxine ER (EFFEXOR XR) 150 mg 24 hr capsule TAKE 1 CAPSULE BY MOUTH EVERY DAY lamoTRIgine (LAMICTAL) 25 mg tablet take one tablet daily for 2 weeks then two tablets daily for 2 weeks then take the 100 mg po daily ARIPiprazole (ABILIFY) 5 mg tablet take one half tablet daily in am for a week then take one tablet daily in am (Patient not taking: Reported on 06/26/2023) venlafaxine ER (EFFEXOR XR) 150 mg 24 hr capsule Take 1 capsule by mouth once daily. (Patient not taking: Reported on 06/26/2023) cyclobenzaprine (FLEXERIL) 10 mg tablet Take 1 tablet by mouth three times a day as needed for muscle spasm (or pain). Patient should start on May 20, 2023. (Patient not taking: Reported on 06/26/2023) gabapentin (NEURONTIN) 300 mg capsule Take 1 capsule by mouth daily at bedtime for 30 days. (Patient not taking: Reported on 06/26/2023) Current Facility-Administered Medications Medication Dose Route Frequency medroxyPROGESTERone 150 mg injection (DEPO-PROVERA) 150 mg INTRAMUSCULAR every 12 weeks Allergies As of Date: 06/26/2023 (No Known Allergies) Fully Assessed 06/22/2023 Allergies and current medication updated:Yes EXAM: BP 102/64 Wt 117 lb (53.1kg) LMP 06/22/2023 GENERAL: pleasant, female in no apparent distress PELVIC: external genitalia normal, normal [place]tholin's glands, urethra, [place]'s glands, no vulvar lesions, no cervical lesions, good vaginal support, scant blood present, normal appearing perineal body and perianal region BIMANUAL: uterus normal size, shape and consistency, no adnexal masses, and non-tender ASSESSMENT AND PLAN: Discussed R/B/A of treatment options for AUB on Cir[place]. Patient wishes to proceed with Mirena IUD insertion. Keagan presents today for IUD insertion for menstrual dysfunction. Patient's last menstrual period was 06/22/2023. GC/chlamydia: Collected today test: negative on 06/22/23 Side effects including irregular bleeding were discussed with the patient. The patient understands that it should be removed in 8 years or sooner if the patient desires a . IUD source: office provided IUD lot #: [id number] Exp date: 08/09/2025 UNIVERSAL PROTOCOL / SAFETY CHECKLIST Procedure to be Performed: IUD insertion Sign In: A Moment of CARE was completed. Personnel directly involved with the procedure wore the appropriate PPE (Personal Protective Equipment). Patient/Surrogate Stated/Verified: PATIENT VERIFIED(optional for EMERGENT procedures): Patient name, Date of , Relevant allergies, and The intended procedure Time Out Communication: Intended patient and procedure match the source documents. Consent documented and matches the intended procedure. Implant(s) inserted: Correct implant(s) confirmed including size and side. and Expiration date(s) reviewed. Sign Out: SIGN OUT (optional for EMERGENT procedures): All specimen containers correctly labeled. All instruments, equipment, possible retained foreign bodies accounted for. Post-procedure follow-up management communicated and Plan of Care Visit completed when applicable. Prabhu Ortez MD The cervix was prepped with betadine. The uterus sounded to 6.5 cm and the uterus is Retroverted.. Using sterile technique, the Mirena IUD was inserted after the cervix was dilated and the string was cut to 4cm from the external os of the cervix. Patient tolerated procedure well. PLAN: Patient was advised to observe for signs and symptoms of infection including but not limited to fever, malodorous vaginal discharge and/or pain. The patient was told to check the string monthly for accurate placement. Bleeding expectations were reviewed. Follow up in one month. Prabhu Ortez MD documented in this encounter [facility] 06-25-2023 History of Present illness Narrative Images from the original note were not included. Referred by Saturnino Lawrence, Chief complaint: Chief Complaint Patient presents with New Patient Visit Pt here for npt PE. Has side effects for eliquis. C/o SOB and feet numbness and tingling. History of Present Illness Keagan Alicia is a 22 y.o. year old female with history of smoking who is presenting for evaluation after episode of pulmonary embolism. Patient had a recent hospital admission with cholecystitis that needed cholecystectomy. During the hospital admission CT scan showed incidental finding of small right subsegmental pulmonary embolism. Patient has been asymptomatic from a respiratory and cardiovascular standpoint. Denies chest pain, shortness of breath, or syncope. During admission there is no documentation of hypoxia or tachycardia. A repeat CT PE protocol confirmed the findings of small subsegmental right lower lobe pulmonary embolism. Patient was started on Eliquis. She is now reporting she is having very heavy periods while on the loading dose of Eliquis. She denies prior history of DVT or family history of DVT. Patient is not on any hormonal therapy. She does vape. She does report before all this started she was getting intermittent episodes of palpitations at least once a day that last for several minutes and were associated with dizziness. Social History Tobacco Use Smoking status: Former Current packs/day: 0.00 Types: Cigarettes Quit date: 2022 Years since quittin.3 Smokeless tobacco: Current Vaping Use Vaping status: Every Day Substances: Nicotine, THC, CBD Substance Use Topics Alcohol use: Never Drug use: Never Outpatient Medications: Current Outpatient Medications Medication Instructions apixaban (Eliquis) 5 mg (74 tabs) tablet Take 2 tablets (10 mg) by mouth 2 times a day for 7 days, then take 1 tablet (5 mg) by mouth 2 times a day. escitalopram (LEXAPRO) 5 mg, oral, Daily gabapentin (NEURONTIN) 300 mg, oral, Nightly naproxen (NAPROSYN) 500 mg, oral, 2 times daily (morning and late afternoon) venlafaxine XR (EFFEXOR-XR) 150 mg, oral, Daily RT Vitals: Vitals: 06/25/23 1356 BP: 102/86 Pulse: SpO2: Physical Exam: General: NAD, well-appearing HEENT: moist mucous membranes, no jaundice Neck: No JVD, no carotid bruit Lungs: CTA asha, no wheezing or rales Cardiac: RRR, no murmurs Abdomen: soft, non-tender, non-distended Extremities: 2+ radial pulses, no edema Skin: warm, dry, no wound Neurologic: AAOx3, no focal deficits Reviewed Study(s): CTA chest reviewed with evidence of small right lower lobe subsegmental PE Assessment/Plan #Incidental low risk subsegmental pulmonary embolism -Pulmonary embolism in the setting of acute illness with cholecystitis, in the background of a history of smoking. Likely provoked event? -Will obtain lower extremity venous duplex to rule out concomitant DVT -At this moment would recommend to treat with Eliquis for about 3 months, and then stop and monitor -Discussed importance of smoking cessation -She reports heavy menstrual bleeding while on the loading dose of Eliquis. Instructed to reduce to the maintenance dose of Eliquis to 5 mg twice daily and to continue to monitor -She is also scheduled to follow-up with her POWER OPERATOR for further recommendations symptoms of menstrual bleeding # Palpitations -Will obtain Holter monitor for 14 days for further evaluation Norbert Fernandes MD [facility] Interventional Cardiology Endovascular Interventions [email or web address] Disclaimer: This note was dictated by speech recognition, and every effort has been made to prevent any error in scrap stripper hand, however minor errors may be present documented in this encounter [facility] Work Phone: 06-24-2023 Emergency department Note HPI Chief Complaint Patient presents with Numbness Pt states she has numbness in both her feet. Pt was recently admitted for gallbladder surgery complications. Pt states she developed a blood clot in lungs during her stay and is on eliquis. Pt also states she is having heavy vaginal bleeding now. Patient presents with concerns for vaginal bleeding and tingling to her toes. States she has had a complicated postoperative course from her gallbladder removal a few weeks ago. 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 States she has had her menstrual cycle for 3 months now, bleeding daily and she has noticed an increase in bleeding more recently. She states she continues with abdominal pain postoperatively without any acute change. She denies any fever or chills. She was concerned with tingling to her toes. She denies any falls or injuries. No discoloration to her feet. States she was seen at a local ED today for the same complaints. She states her hemoglobin was 15. She had a pelvic exam. She was subsequently discharged home. She called her family doctor and was instructed to come to a different ER to get a second opinion if she felt like something was wrong. History provided by: Patient [place] Coma Scale Score: 15 Patient History Past Medical History: Diagnosis Date Anxiety Depression PTSD (post-traumatic stress disorder) Past Surgical History: Procedure Laterality Date TONSILLECTOMY No family history on file. Social History Tobacco Use Smoking status: Former Current packs/day: 0.00 Types: Cigarettes Quit date: 2022 Years since quittin.3 Smokeless tobacco: Current Vaping Use Vaping status: Every Day Substances: Nicotine, THC, CBD Substance Use Topics Alcohol use: Never Drug use: Never Physical Exam ED Triage Vitals [06/24/23 1841] Temperature Heart Rate Respirations BP 36.3 C (97.4 F) 92 18 (!) 122/91 Pulse Ox Temp src Heart Rate Source Patient Position 98 % -- -- -- BP Location FiO2 (%) -- -- Physical Exam Vitals and nursing note reviewed. Constitutional: General: She is not in acute distress. Appearance: Normal appearance. She is well-developed, well-groomed and normal weight. She is not ill-appearing or toxic-appearing. HENT: Head: Normocephalic. Right Ear: External ear normal. Left Ear: External ear normal. Nose: Nose normal. Mouth/Throat: Lips: [place]. No lesions. Mouth: Mucous membranes are moist. Pharynx: No oropharyngeal exudate. Eyes: General: No scleral icterus. Conjunctiva/sclera: Conjunctivae normal. Cardiovascular: Rate and Rhythm: Normal rate and regular rhythm. Pulses: Dorsalis pedis pulses are 2+ on the right side and 2+ on the left side. Posterior tibial pulses are 2+ on the right side and 2+ on the left side. Heart sounds: Normal heart sounds. Pulmonary: Effort: Pulmonary effort is normal. Breath sounds: Normal breath sounds and air entry. Chest: Chest wall: No tenderness. Abdominal: General: Bowel sounds are normal. Palpations: Abdomen is soft. Tenderness: There is no right CVA tenderness or left CVA tenderness. Musculoskeletal: Cervical back: No tenderness. No spinous process tenderness or muscular tenderness. Right lower leg: No edema. Left lower leg: No edema. Comments: Patient has independent movement to the lower extremities. Gait is observed as normal. Skin: General: Skin is warm. Capillary Refill: Capillary refill takes less than 2 seconds. Findings: No rash. Comments: Surgical wounds on the abdomen appear well-healing without any erythema or ecchymosis. No foul odor or discharge Neurological: General: No focal deficit present. Mental Status: She is alert and oriented to person, place, and time. Cranial Nerves: No cranial nerve deficit or facial asymmetry. Sensory: No sensory deficit. Motor: No weakness. Gait: Gait normal. Comments: Sensation is intact to the lower extremities distally. Psychiatric: Attention and Perception: Attention and perception normal. Mood and Affect: Mood and affect normal. Speech: Speech normal. Behavior: Behavior normal. Behavior is cooperative. Thought Content: Thought content normal. Cognition and Memory: Cognition and memory normal. Judgment: Judgment normal. ED Course & MDM Diagnoses as of 06/24/232120 Dysfunctional uterine bleeding Post-op pain Medical Decision Making Patient presents with concerns for vaginal bleeding and tingling to her toes. States she has had a complicated postoperative course from her gallbladder removal a few weeks ago. 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 States she has had her menstrual cycle for 3 months now, bleeding daily and she has noticed an increase in bleeding more recently. She states she continues with abdominal pain postoperatively without any acute change. She denies any fever or chills. She was concerned with tingling to her toes. She denies any falls or injuries. No discoloration to her feet. States she was seen at a local ED today for the same complaints. She states her hemoglobin was 15. She had a pelvic exam. She was subsequently discharged home. She called her family doctor and was instructed to come to a different ER to get a second opinion if she felt like something was wrong. Ddx: Hemorrhage, , ectopic, metabolic, other Will obtain basic workup and CT. We will not repeat a pelvic exam as patient had one recently today. Labs and CT do not show any concerning pathology. Patient given a small dose of pain medication and antiemetics while in the ED. IV fluids also given. Patient encouraged to follow-up with primary care provider and/or surgeon. Also with the dysfunctional bleeding and patient being on anticoagulants she is at high risk for worsening bleeding and she is encouraged to continue to monitor this. She is encouraged to return with any worsening symptoms or concerns. She is also encouraged to follow-up with SHAFTING CLEANER to discuss this as well. Patient discharged home in improved and stable condition Amount and/or Complexity of Data Reviewed Labs: ordered. Decision-making details documented in ED Course. Radiology: ordered and independent interpretation performed. Decision-making details documented in ED Course. Risk OTC drugs. Prescription drug management. Diagnosis or treatment significantly limited by social determinants of health. Procedure Procedures Megan Berg PA-C 06/24/232120 documented in this encounter [facility] Work Phone: 06-24-2023 Physician Emergency department Note HPI Chief Complaint Patient presents with Numbness Pt states she has numbness in both her feet. Pt was recently admitted for gallbladder surgery complications. Pt states she developed a blood clot in lungs during her stay and is on eliquis. Pt also states she is having heavy vaginal bleeding now. Patient presents with concerns for vaginal bleeding and tingling to her toes. States she has had a complicated postoperative course from her gallbladder removal a few weeks ago. 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 States she has had her menstrual cycle for 3 months now, bleeding daily and she has noticed an increase in bleeding more recently. She states she continues with abdominal pain postoperatively without any acute change. She denies any fever or chills. She was concerned with tingling to her toes. She denies any falls or injuries. No discoloration to her feet. States she was seen at a local ED today for the same complaints. She states her hemoglobin was 15. She had a pelvic exam. She was subsequently discharged home. She called her family doctor and was instructed to come to a different ER to get a second opinion if she felt like something was wrong. History provided by: Patient [place] Coma Scale Score: 15 Patient History Past Medical History: Diagnosis Date Anxiety Depression PTSD (post-traumatic stress disorder) Past Surgical History: Procedure Laterality Date TONSILLECTOMY No family history on file. Social History Tobacco Use Smoking status: Former Current packs/day: 0.00 Types: Cigarettes Quit date: 2022 Years since quittin.3 Smokeless tobacco: Current Vaping Use Vaping status: Every Day Substances: Nicotine, THC, CBD Substance Use Topics Alcohol use: Never Drug use: Never Physical Exam ED Triage Vitals [06/24/23 1841] Temperature Heart Rate Respirations BP 36.3 C (97.4 F) 92 18 (!) 122/91 Pulse Ox Temp src Heart Rate Source Patient Position 98 % -- -- -- BP Location FiO2 (%) -- -- Physical Exam Vitals and nursing note reviewed. Constitutional: General: She is not in acute distress. Appearance: Normal appearance. She is well-developed, well-groomed and normal weight. She is not ill-appearing or toxic-appearing. HENT: Head: Normocephalic. Right Ear: External ear normal. Left Ear: External ear normal. Nose: Nose normal. Mouth/Throat: Lips: [place]. No lesions. Mouth: Mucous membranes are moist. Pharynx: No oropharyngeal exudate. Eyes: General: No scleral icterus. Conjunctiva/sclera: Conjunctivae normal. Cardiovascular: Rate and Rhythm: Normal rate and regular rhythm. Pulses: Dorsalis pedis pulses are 2+ on the right side and 2+ on the left side. Posterior tibial pulses are 2+ on the right side and 2+ on the left side. Heart sounds: Normal heart sounds. Pulmonary: Effort: Pulmonary effort is normal. Breath sounds: Normal breath sounds and air entry. Chest: Chest wall: No tenderness. Abdominal: General: Bowel sounds are normal. Palpations: Abdomen is soft. Tenderness: There is no right CVA tenderness or left CVA tenderness. Musculoskeletal: Cervical back: No tenderness. No spinous process tenderness or muscular tenderness. Right lower leg: No edema. Left lower leg: No edema. Comments: Patient has independent movement to the lower extremities. Gait is observed as normal. Skin: General: Skin is warm. Capillary Refill: Capillary refill takes less than 2 seconds. Findings: No rash. Comments: Surgical wounds on the abdomen appear well-healing without any erythema or ecchymosis. No foul odor or discharge Neurological: General: No focal deficit present. Mental Status: She is alert and oriented to person, place, and time. Cranial Nerves: No cranial nerve deficit or facial asymmetry. Sensory: No sensory deficit. Motor: No weakness. Gait: Gait normal. Comments: Sensation is intact to the lower extremities distally. Psychiatric: Attention and Perception: Attention and perception normal. Mood and Affect: Mood and affect normal. Speech: Speech normal. Behavior: Behavior normal. Behavior is cooperative. Thought Content: Thought content normal. Cognition and Memory: Cognition and memory normal. Judgment: Judgment normal. ED Course & MDM Diagnoses as of 06/24/232120 Dysfunctional uterine bleeding Post-op pain Medical Decision Making Patient presents with concerns for vaginal bleeding and tingling to her toes. States she has had a complicated postoperative course from her gallbladder removal a few weeks ago. 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 States she has had her menstrual cycle for 3 months now, bleeding daily and she has noticed an increase in bleeding more recently. She states she continues with abdominal pain postoperatively without any acute change. She denies any fever or chills. She was concerned with tingling to her toes. She denies any falls or injuries. No discoloration to her feet. States she was seen at a local ED today for the same complaints. She states her hemoglobin was 15. She had a pelvic exam. She was subsequently discharged home. She called her family doctor and was instructed to come to a different ER to get a second opinion if she felt like something was wrong. Ddx: Hemorrhage, , ectopic, metabolic, other Will obtain basic workup and CT. We will not repeat a pelvic exam as patient had one recently today. Labs and CT do not show any concerning pathology. Patient given a small dose of pain medication and antiemetics while in the ED. IV fluids also given. Patient encouraged to follow-up with primary care provider and/or surgeon. Also with the dysfunctional bleeding and patient being on anticoagulants she is at high risk for worsening bleeding and she is encouraged to continue to monitor this. She is encouraged to return with any worsening symptoms or concerns. She is also encouraged to follow-up with SHAFTING CLEANER to discuss this as well. Patient discharged home in improved and stable condition Amount and/or Complexity of Data Reviewed Labs: ordered. Decision-making details documented in ED Course. Radiology: ordered and independent interpretation performed. Decision-making details documented in ED Course. Risk OTC drugs. Prescription drug management. Diagnosis or treatment significantly limited by social determinants of health. Procedure Procedures Megan Berg PA-C 06/24/232120 [facility] Work Phone: 06-24-2023 Telephone encounter Note Reason for call: Patient calling regarding ongoing vaginal bleeding and shaking. Patient reports that she spoke to OB provider 20 minutes prior to call, and that she was recommended to be seen in the ED. Outcome: Upheld recommendation of specialty provider. Patient verbalizes understanding. GO TO THE EMERGENCY ROOM OR CALL 911 IF: * You develop any new symptoms * Your condition worsens * You are concerned or anxious about your condition for any other reason. T [facility] 06-24-2023 Miscellaneous Notes Reason for call: Patient calling regarding ongoing vaginal bleeding and shaking. Patient reports that she spoke to OB provider 20 minutes prior to call, and that she was recommended to be seen in the ED. Outcome: Upheld recommendation of specialty provider. Patient verbalizes understanding. GO TO THE EMERGENCY ROOM OR CALL 911 IF: * You develop any new symptoms * Your condition worsens * You are concerned or anxious about your condition for any other reason. documented in this encounter [facility] 06-24-2023 Telephone encounter Note Patient calling regarding vaginal bleeding. Conferenced to [employer] [phone]] to speak with provider promotions manager for Dr. Toni Ortez.. Pt was just discharged from [place] ED. Advised pt while waiting to talk with promotions manager provider if any new symptoms develop or symptoms worsen go to ED or call 911. [facility] 06-24-2023 Miscellaneous Notes Patient calling regarding vaginal bleeding. Conferenced to [employer] [phone] to speak with provider promotions manager for Dr. Toni Ortez.. Pt was just discharged from [place] ED. Advised pt while waiting to talk with promotions manager provider if any new symptoms develop or symptoms worsen go to ED or call 911. documented in this encounter [facility] 06-24-2023 History of Present illness Narrative ED Follow Up: Patient discharged from [facility] ED on 06/22/2023. 1. How are you feeling since your ED visit? Pt states that she is not doing better. Pt is currently at [place] ER for shaking and heavy menstrual bleeding. Have your symptoms improved or resolved? No 2. Were you prescribed any medications while in the ED or advised to stop any medication? Yes - If yes, were you able to fill your prescriptions? Yes -if stopped medication, what was the medication? na 3. Were you advised to schedule a follow up appointment with your provider? Yes - If no, Do you feel like you need an appointment scheduled? Not applicable - If yes, Do you need this scheduled now or has this already been scheduled? No 4. Were you able to contact the office or promotions manager provider prior to your ED visit? No 5. Is there anything else I can do for you today? No documented in this encounter [facility] 06-24-2023 Telephone encounter Note Agree with ED evaluation. Prabhu Ortez MD [facility] 06-24-2023 Miscellaneous Notes Agree with ED evaluation. Prabhu Ortez MD Patient calling c/o heavy bleeding. Started on blood thinner d/t recent blood clot diagnosis. Currently on menses and has been heavy with clots for multiple days. Changing pad every 1-2 hours. C/o shortness of breath especially with minimal activity like walking up steps. Advised to go to L&D for evaluation then call office after to schedule ER f/u appointment. Patient agreed. FYI. Iveth Kohli RN documented in this encounter [facility] 06-24-2023 Telephone encounter Note Patient calling c/o heavy bleeding. Started on blood thinner d/t recent blood clot diagnosis. Currently on menses and has been heavy with clots for multiple days. Changing pad every 1-2 hours. C/o shortness of breath especially with minimal activity like walking up steps. Advised to go to L&D for evaluation then call office after to schedule ER f/u appointment. Patient agreed. FYI. Iveth Kohli RN [facility] 06-22-2023 Note HNO ID: [id number] Author: JACOB ANGLIN RT(R) Service: Radiology Author Type: Technologist Type: Progress Notes Filed: 06/22/2023 14:10 Note Text: Radiology Service Progress Note DATE OF SERVICE: June 22, 2023 TIME: 2:09 PM PATIENT IDENTITY VERIFICATION COMPLETED USING TWO (2) STANDARD IDENTIFIERS: Name and Date of confirmed by patient verbally. FALL SCREENING: Has the patient had 2 falls in the last year or 1 fall with injury or currently using an Ambulatory Assistive Device (Walker, Cane, Wheelchair, Crutches, etc.)? Emergency Room Patient: Screened in ED PATIENT GENDER DATA: Female. status: : No status: N/A PATIENT RELEVANT IMPLANT DATA REVIEWED: Yes PATIENT PRESENTS WITH AN IMPLANTABLE OR ATTACHED SHAPING MACHINE TENDER: No ALLERGIES: Reviewed and unchanged CONTRAST ALLERGY: N/A EXAM: CT -CONTRAST INDUCED NEPHROPATHY RISK FACTORS: Not applicable CREATININE: Creatinine Date Value Ref Range Status 06/22/2023 0.68 0.58 - 0.96 mg/dL Final 08/17/2022 0.57 (L) 0.58 - 0.96 mg/dL Final 04/30/2022 0.51 (L) 0.58 - 0.96 mg/dL Final Estimated Glomerular Filtration Rate Date Value Ref Range Status 06/22/2023 128 >=60 mL/min/1.73m? Final Comment: Estimated Glomerular Filtration Rate (eGFR) is calculated using the 2020 CKD-EPI creatinine equation. This equation utilizes serum creatinine, sex, and age as parameters. The creatinine assay has traceable calibration to isotope dilution-mass spectrometry. Refer to KDIGO guidelines for clinical interpretation. In patients with unstable renal function, e.g. those with acute kidney injury, the eGFR may not accurately reflect actual GFR. P.O.C.T. RESULTS: POC done: Yes, See Lab Tab June 22, 2023 TREATMENT: N/A PERIPHERAL IV DATA: Inpatient - refer to LDA documentation RADIOLOGY DEPARTMENT: CT; Exam(s) Completed: Abdomen/Pelvis SIGNATURE: RT Richar(R) PATIENT NAME: Keagan Alicia DATE: June 22, 2023 TIME: 2:09 PM [facility] 06-21-2023 Reason for referr al (narrative) Specialty Diagnoses / Procedures Referred By Contac t Referred To Contact Cardiology Saturnino Velázquez, DO [address] [place] [address] [place] [address] Norbert Herndon MD [address], [facility] [address] [place] [address] Referral ID Status Reason Start Date Expiration Date Visits Requested Visits Authorized [id number] Authorized Specialty Services Required 06/21/2023 06/20/2024 1 1 * SCC Consult (Routine) - Authorized Specialty Diagnoses / Procedures Referred By Contac t Referred To Contact Hematology and Oncology Saturnino Velázquez, [address] [place] [address] Department [place] [address] Miki Jaramillo MD [address] [facility] [place] [address] Referral ID Status Reason Start Date Expiration Date Visits Requested Visits Authorized [id number] Authorized Specialty Services Required 06/21/2023 06/20/2024 1 1 * Consultation (Routine) - Authorized Specialty Diagnoses / Procedures Referred By Contac t Referred To Contact Family Medicine / Primary Care Saturnino Velázquez DO [address] [place] [address] Department [place] [address] Referral ID Status Reason Start Date Expiration Date Visits Requested Visits Authorized [id number] Authorized Specialty Services Required 06/21/2023 06/20/[address] [facility] Work Phone: 1(881) 982-524805-10-2024 Hospital course Narrative* Christa Langley, CHILD CAREGIVER PRIVATE HOME-DOCTOR ASSISTANT - 06/20/2023 12:49 PM EDT Discharge Diagnosis Acute post-operative pain Issues Requiring Follow-Up Follow up with Dr. Llanes Discharge Meds Your medication list CONTINUE taking these medications Instructions Last Dose Given Next Dose Due gabapentin 300 mg capsule Commonly known as: Neurontin naproxen 500 mg tablet Commonly known as: Naprosyn Take 1 tablet (500 mg) by mouth 2 times a day with meals for 7 days. oxyCODONE-acetaminophen 5-325 mg tablet Commonly known as: Percocet Take 1 tablet by mouth every 6 hours if needed for severe pain (7 - 10) (post- operative pain) for up to 2 days. venlafaxine XR 150 mg 24 hr capsule Commonly known as: Effexor-XR Test Results Pending At Discharge Pending Labs No current pending labs. Hospital Course Keagan Alicia is a 22 y.o. female Who presented to the emergency room for a 2 days history of nausea, vomiting, abdominal pain and diarrhea after having an elective cholecystectomy procedure done on 06/17/2023. The next day, patient presented to the emergency room for abdominal pain nausea vomiting and fatigue. Pt had a HIDA scan and this was negative for a biliary leak. It is recommended that she follow up with Dr. Llanes in 1 week. Pertinent Physical Exam At Time of Discharge Physical Exam Constitutional: Appearance: Normal appearance. Comments: drowsy HENT: Head: Normocephalic. Mouth/Throat: Mouth: Mucous membranes are moist. Eyes: Extraocular Movements: Extraocular movements intact. Pupils: Pupils are equal, round, and reactive to light. Cardiovascular: Rate and Rhythm: Normal rate and regular rhythm. Pulses: Normal pulses. Heart sounds: Normal heart sounds. Pulmonary: Effort: Pulmonary effort is normal. Breath sounds: Normal breath sounds. Abdominal: General: Bowel sounds are normal. Palpations: Abdomen is soft. Musculoskeletal: General: Normal range of motion. Skin: General: Skin is warm and dry. Neurological: General: No focal deficit present. Mental Status: She is alert and oriented to person, place, and time. Psychiatric: Mood and Affect: Mood normal. Outpatient Follow-Up Future Appointments Date Time Provider Department Center 07/10/2023 11:15 AM Alla Llanes MD [id number] [facility] JONAH Delacruz documented in this [facility] Work Phone: 1(683) 139-849005-10-2024 History of Present illness Narrative* Christa Martin Korin, NOA-DOCTOR ASSISTANT - 06/20/2023 12:05 PM EDT Keagan Alicia is a 22 y.o. female on day 1 of admission presenting with Acute post-operative pain. Subjective Pt seen and examined, no signs of distress noted Pt very drowsy, likely due to medication given for HIDA scan Objective Last Recorded Vitals BP 90/53 (BP Location: Left arm) Pulse 92 Temp 36.2 C (97.2 F) (Temporal) Resp 16 Wt 57.3 kg (126 lb 5.2 oz) SpO2 96% Intake/Output last 3 Shifts: Intake/Output Summary (Last 24 hours) at 06/20/2023 1205 Last data filed at 06/20/2023 0525 Gross per 24 hour Intake 300 ml Output -- Net 300 ml Admission Weight Weight: 55.8 kg (123 lb) (06/19/23 1634) Daily Weight 06/20/23 : 57.3 kg (126 lb 5.2 oz) Image Results NM hepatobiliary Narrative: Interpreted By: Jonathan Shannon, and Noemy Melara STUDY: NM HEPATOBILIARY; 06/20/2023 7:34 am INDICATION: Signs/Symptoms:rule out biliary leak. COMPARISON: None. ACCESSION NUMBER(S): [id number] ORDERING CLINICIAN: ALLA LLANES TECHNIQUE: DIVISION OF NUCLEAR MEDICINE HEPATOBILIARY SCAN (HIDA) The patient received an intravenous dose of 6 mCi of Tc-99m mebrofenin (Choletec). Sequential images of the upper abdomen were then acquired over the next 60 minutes. Right lateral images were obtained. FINDINGS: There is prompt accumulation of activity within the liver and normal subsequent excretion via the biliary ductal system into the small bowel. There is nonvisualization of the gallbladder consistent with history of prior cholecystectomy. There is no evidence of radiotracer extravasation to suggest bile leak. Note is made of enterogastric reflux. Impression: Patient is status post cholecystectomy, without evidence of radiotracer extravasation to suggest bile leak. Enterogastric reflux is noted. I personally reviewed the images/study and I agree with the findings as stated. This study was interpreted at [facility], [place], [place]. MACRO: None Signed by: Jonathan Shannon 06/20/2023 10:09 AM Dictation workstation: [id number] Physical Exam Constitutional: Appearance: Normal appearance. Comments: drowsy HENT: Head: Normocephalic. Mouth/Throat: Mouth: Mucous membranes are moist. Eyes: Extraocular Movements: Extraocular movements intact. Pupils: Pupils are equal, round, and reactive to light. Cardiovascular: Rate and Rhythm: Normal rate and regular rhythm. Pulses: Normal pulses. Heart sounds: Normal heart sounds. Pulmonary: Effort: Pulmonary effort is normal. Breath sounds: Normal breath sounds. Abdominal: General: Bowel sounds are normal. Palpations: Abdomen is soft. Musculoskeletal: General: Normal range of motion. Skin: General: Skin is warm and dry. Neurological: General: No focal deficit present. Mental Status: She is alert and oriented to person, place, and time. Psychiatric: Mood and Affect: Mood normal. Relevant Results Scheduled medications ciprofloxacin, 400 mg, intravenous, q12h famotidine PF, , , famotidine, 20 mg, intravenous, q12h MIREYA gabapentin, 300 mg, oral, Nightly metroNIDAZOLE, 500 mg, intravenous, q8h venlafaxine XR, 150 mg, oral, Daily Continuous medications sodium chloride 0.9%, 100 mL/hr, Last Rate: 100 mL/hr (06/20/23 0315) PRN medications PRN medications: acetaminophen OR acetaminophen OR acetaminophen, famotidine PF, morphine, ondansetron ODT OR ondansetron Results for orders placed or performed during the hospital encounter of 06/19/23 (from the past 24 hour(s)) CBC and Auto Differential Result Value Ref Range WBC 5.0 4.4 - 11.3 x10*3/uL nRBC 0.0 0.0 - 0.0 /100 WBCs RBC 5.03 4.00 - 5.20 x10*6/uL Hemoglobin 14.2 12.0 - 16.0 g/dL Hematocrit 43.7 36.0 - 46.0 % MCV 87 80 - 100 fL MCH 28.2 26.0 - 34.0 pg MCHC 32.5 32.0 - 36.0 g/dL RDW 14.1 11.5 - 14.5 % Platelets 225 150 - 450 x10*3/uL Neutrophils % 84.5 40.0 - 80.0 % Immature Granulocytes %, Automated 0.2 0.0 - 0.9 % Lymphocytes % 12.9 13.0 - 44.0 % Monocytes % 2.0 2.0 - 10.0 % Eosinophils % 0.2 0.0 - 6.0 % Basophils % 0.2 0.0 - 2.0 % Neutrophils Absolute 4.20 1.20 - 7.70 x10*3/uL Immature Granulocytes Absolute, Automated 0.01 0.00 - 0.70 x10*3/uL Lymphocytes Absolute 0.64 (L) 1.20 - 4.80 x10*3/uL Monocytes Absolute 0.10 0.10 - 1.00 x10*3/uL Eosinophils Absolute 0.01 0.00 - 0.70 x10*3/uL Basophils Absolute 0.01 0.00 - 0.10 x10*3/uL Basic metabolic panel Result Value Ref Range Glucose 74 74 - 99 mg/dL Sodium 130 (L) 136 - 145 mmol/L Potassium 4.4 3.5 - 5.3 mmol/L Chloride 98 98 - 107 mmol/L Bicarbonate 16 (L) 21 - 32 mmol/L Anion Gap 20 10 - 20 mmol/L Urea Nitrogen 7 6 - 23 mg/dL Creatinine 0.65 0.50 - 1.05 mg/dL eGFR >90 >60 mL/min/1.73m*2 Calcium 9.1 8.6 - 10.3 mg/dL Lipase Result Value Ref Range Lipase 30 9 - 82 U/L Lactate Result Value Ref Range Lactate 1.1 0.4 - 2.0 mmol/L Hepatic function panel Result Value Ref Range Albumin 4.8 3.4 - 5.0 g/dL Bilirubin, Total 0.7 0.0 - 1.2 mg/dL Bilirubin, Direct 0.1 0.0 - 0.3 mg/dL Alkaline Phosphatase 61 33 - 110 U/L ALT 56 (H) 7 - 45 U/L AST 26 9 - 39 U/L Total Protein 7.3 6.4 - 8.2 g/dL hCG, Urine, Qualitative Result Value Ref Range HCG, Urine NEGATIVE NEGATIVE Urinalysis with Reflex Culture and Microscopic Result Value Ref Range Color, Urine Straw Straw, Yellow Appearance, Urine Clear Clear Specific Fletcher, Urine 1.017 1.005 - 1.035 pH, Urine 5.0 5.0, 5.5, 6.0, 6.5, 7.0, 7.5, 8.0 Protein, Urine 30 (1+) (N) NEGATIVE mg/dL Glucose, Urine NEGATIVE NEGATIVE mg/dL Blood, Urine MODERATE (2+) (A) NEGATIVE Ketones, Urine 80 (2+) (A) NEGATIVE mg/dL Bilirubin, Urine NEGATIVE NEGATIVE Urobilinogen, Urine <2.0 <2.0 mg/dL Nitrite, Urine NEGATIVE NEGATIVE Leukocyte Esterase, Urine NEGATIVE NEGATIVE Extra Urine Emerson Tube Result Value Ref Range Extra Tube Hold for add-ons. Urinalysis Microscopic Result Value Ref Range WBC, Urine 1-5 1-5, NONE /HPF RBC, Urine 1-2 NONE, 1-2, 3-5 /HPF Mucus, Urine 1+ Reference range not established. /LPF Basic metabolic panel Result Value Ref Range Glucose 98 74 - 99 mg/dL Sodium 131 (L) 136 - 145 mmol/L Potassium 3.7 3.5 - 5.3 mmol/L Chloride 101 98 - 107 mmol/L Bicarbonate 20 (L) 21 - 32 mmol/L Anion Gap 14 10 - 20 mmol/L Urea Nitrogen 7 6 - 23 mg/dL Creatinine 0.80 0.50 - 1.05 mg/dL eGFR >90 >60 mL/min/1.73m*2 Calcium 8.6 8.6 - 10.3 mg/dL CBC Result Value Ref Range WBC 6.5 4.4 - 11.3 x10*3/uL nRBC 0.0 0.0 - 0.0 /100 WBCs RBC 4.86 4.00 - 5.20 x10*6/uL Hemoglobin 13.9 12.0 - 16.0 g/dL Hematocrit 41.9 36.0 - 46.0 % MCV 86 80 - 100 fL MCH 28.6 26.0 - 34.0 pg MCHC 33.2 32.0 - 36.0 g/dL RDW 14.4 11.5 - 14.5 % Platelets 235 150 - 450 x10*3/uL Assessment/Plan Principal Problem: Acute post-operative pain Keagan Alicia is a 22 y.o. female Who presented to the emergency room for a 2 days history of nausea, vomiting, abdominal pain and diarrhea after having an elective cholecystectomy procedure done on 06/17/2023. The next day, patient presented to the emergency room for abdominal pain nausea vomiting and fatigue. #Nausea/vomiting -Surgery consulted-appreciate recommendations -HIDA scan negative for biliary leak -continue IVF -continue antiemetics -start with clear liq diet, advance as tolerated -possible discharge home tomorrow Christa Langley APRN-ULISSES * Lisette Carson RN - 06/20/2023 10:22 AM EDT 06/20/23 1301 Discharge Planning Living Arrangements Spouse/significant other Support Systems Family members Assistance Needed None Type of Residence Private residence Number of Stairs to Enter Residence 5 Number of Stairs Within Residence 0 Do you have animals or pets at home? No Who is requesting discharge planning? Provider Home or Post Acute Services None Patient expects to be discharged to: Home Does the patient need discharge transport arranged? No Financial Resource Strain How hard is it for you to pay for the very basics like food, housing, medical care, and heating? Not hard Housing Stability In the last 12 months, was there a time when you were not able to pay the mortgage or rent on time?N In the last 12 months, how many places have you lived? 1 In the last 12 months, was there a time when you did not have a steady place to sleep or slept in ashelter (including now)? N Transportation Needs In the past 12 months, has lack of transportation kept you from medical appointments or from getting medications? no In the past 12 months, has lack of transportation kept you from meetings, work, or from getting things needed for daily living? No Care Transitions: Patient reviewed in care round meeting this AM. Care plan pending test results. Met with patient and mom Leeann at bedside. Patient drowsy, Mom able to answer questions. Demographicsand contacts verified. Patient lives alone in a mobile home with her 2 small children. PCP is Dr. Amador. Her pharmacy of choice is [facility] in [place]. 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 Discharge plan is to return home when medically ready. Denies any needs. Care team available. Lisette Carson RN/TCC * Alla Llanes MD - 06/20/2023 8:16 AM EDT General Surgery Progress Note Patient is very drowsy this morning. She just returned from radiology getting her HIDA scan. She received Haldol and Ativan for the scan. Still with abdominal pain and dry heaves. No fever or tachycardia overnight. BP 90/52 (BP Location: Left arm, Patient Position: Lying) Pulse 76 Temp 36.1 C (97 F) (Temporal) Resp 16 Ht 1.6 m (5' 3) Wt 57.3 kg (126 lb 5.2 oz) LMP 06/09/2023 (Exact Date) Comment: on period still SpO2 99% BMI 22.38 kg/m NAD, laying supine in bed, drowsy, opened her eyes to voice and responded appropriately to yes/no questions, but did not hold much more of a conversation No labored breathing, on room air NSR Abdomen soft, nondistended, tender palpation throughout abdomen, most tender in lower abdomen and right side Intake/Output Summary (Last 24 hours) at 06/20/2023 0816 Last data filed at 06/20/2023 0525 Gross per 24 hour Intake 300 ml Output -- Net 300 ml WBC 6.5, hemoglobin 13.9 Patient is a 22 y.o. female POD3 s/p laparoscopic cholecystectomy, admitted with abdominal pain, nausea/vomiting, and diarrhea. She underwent a HIDA scan this morning to evaluate for possible bile leak. Result is still pending, although I do not appreciate any obvious leak when I reviewed the images personally. Will await radiology read. If there is a leak present, she would need transferred for ERCP. Otherwise, we will manage her symptoms with pain control and IV fluid support. Will keep her NPO this morning at least until HIDA scan is read. Alla Llanes MD 06/20/23 8:23 AM HIDA scan showed no evidence of bile leak. Clear liquid diet ordered. Alla Llanes MD 06/20/23 11:12 AM * Alla Llanes MD - 06/19/2023 9:31 PM EDT General Surgery Patient is POD2 s/p laparoscopic cholecystectomy for symptomatic cholelithiasis. She has worsening abdominal pain since time of surgery. She initially was prescribed a few extra tablets of Percocet to help with additional pain control. She was evaluated in the ED yesterday evening and labs were normal and non- surgical abdomen on exam. Today, she had vomiting and diarrhea in addition to worsening pain. Zofran did not help. She was therefore re-evaluated in the ED. Labs remain normal, including Tbili 0.7. CT scan was performed which shows some fluid in the pelvis, and small amount in gallbladder fossa. She had a very straightforward surgery and no irrigation was used. On exam, she is more tender than expected and tender in the lower abdomen bilaterally. I am concerned about potential bile leak. HIDA scan is not available at this hour, but have requested Hospitalist assistance with admitting her for overnight observation with plan for HIDA scan tomorrow morning. If bile leak present, would need transfer for ERCP with stent placement. Recommend keeping her NPO after midnight. Ice chips o ambika for comfort. Alla Llanes MD 06/19/23 9:36 PM documented in this [facility] Work Phone: [phone]) 763-232905-10-2024 Consult note* Yoshi Hernandez RDN, BRENDA - 06/20/2023 11:47 AM EDTAssociated Order(s): IP CONSULT TO NUTRITION SERVICES Nutrition Initial Assessment: Nutrition Assessment Reason for Assessment: Admission nursing screening Patient is a 22 y.o. female presenting with POD2 s/p laparoscopic cholecystectomy for symptomatic cholelithiasis. She has worsening abdominal pain since time of surgery. She initially was prescribed a few extra tablets of Percocet to help with additional pain control. 06/20/23 spoke to mother - patient sleeping. Stated has not been able to eat x 3 days with N/V/D. HIDA scan did not show bile leak diet increased to clear liquids Nutrition History: Energy Intake: Poor < 50 % Food and Nutrient History: poor for past 4 days had cholecystectomy 06/17/23 Food Allergies/Intolerances: None GI Symptoms: Diarrhea, Nausea, Vomiting, and Abdominal pain Oral Problems: None Anthropometrics: Height: 160 cm (5' 3) Weight: 57.3 kg (126 lb 5.2 oz) BMI (Calculated): 22.38 IBW/kg (Dietitian Calculated): 52.3 kg Percent of IBW: 110 % Weight History: Daily Weight 06/20/23 : 57.3 kg (126 lb 5.2 oz) 06/18/23 : 55.8 kg (123 lb) 06/17/23 : 56.2 kg (123 lb 14.4 oz) 08/22/22 : 59.9 kg (132 lb) (57%, Z= 0.17)* * Growth percentiles are based on CDC (Girls, 2-20 Years) data. Weight Change %: Weight History / % Weight Change: Stable weight per mother Significant Weight Loss: No Nutrition Focused Physical Exam Findings: defer: patient sleeping Nutrition Significant Labs: CBC Trend: Results from last 7 days Lab Units 06/20/23 0541 06/19/23 1725 06/18/23 1723 WBC AUTO x10*3/uL 6.5 5.0 5.5 RBC AUTO x10*6/uL 4.86 5.03 4.54 HEMOGLOBIN g/dL 13.9 14.2 12.7 HEMATOCRIT % 41.9 43.7 40.2 MCV fL 86 87 89 PLATELETS AUTO x10*3/uL 235 225 208 , Renal Lab Trend: Results from last 7 days Lab Units 06/20/23 0540 06/19/23 1725 06/18/23 1723 POTASSIUM mmol/L 3.7 4.4 3.4* SODIUM mmol/L 131* 130* 136 EGFR mL/min/1.73m*2 >90 >90 >90 BUN mg/dL 7 7 5* CREATININE mg/dL 0.80 0.65 0.83 Nutrition Specific Medications: Scheduled medications ciprofloxacin, 400 mg, intravenous, q12h famotidine PF, , , famotidine, 20 mg, intravenous, q12h MIREYA I/O: Last BM Date: 06/19/23; Dietary Orders (From admission, onward) Start Ordered 06/20/23 1113 Adult diet Clear Liquid Diet effective now Question: Diet type Answer: Clear Liquid 06/20/23 1112 Estimated Needs: Method for Estimating Needs: 25-30 kcal/kg = 4380-9558 kcal Total Protein Estimated Needs (g): 68 g Method for Estimating Needs: 1.0-1.2 gm/kg = 57-68 gm Total Fluid Estimated Needs (mL): 2280 mL Nutrition Diagnosis Malnutrition Diagnosis Patient has Malnutrition Diagnosis: No Nutrition Diagnosis Patient has Nutrition Diagnosis: Yes Diagnosis Status (1): New Nutrition Diagnosis 1: Altered GI function Related to (1): cholecystitis As Evidenced by (1): recent lap cholecystectomy, Nausea, vomiting, diarrhea Nutrition Interventions/Recommendations Nutrition Prescription: Individualized Nutrition Prescription Provided for : Oral nutrition Nutrition Interventions: Interventions: Meals and snacks Goal: Clear liquid diet Collaboration and Referral of Nutrition Care: Team meeting involving nutrition professional Goal: IDT meeting Nutrition Education: Recommend low fat diet when advanced. Mother aware. Written information provided and reviewed. Nutrition Monitoring and Evaluation Food/Nutrient Related History Monitoring Monitoring and Evaluation Plan: Amount of food Amount of Food: Estimated amout of food Criteria: Monitor NPo/clear liquid stated - recommend low fat diet when able to advance Body Composition/Growth/Weight History Monitoring and Evaluation Plan: Weight Weight: Measured weight Criteria: Maintain Time Spent/Follow-up Reminder: Time Spent (min): 30 minutes Last Date of Nutrition Visit: 06/20/23 Nutrition Follow-Up Needed?: 5-7 days Follow up Comment: diet advancement Yoshi Hernandez RDN, LD T [facility] Work Phone: [phone]) 150-444305-10-2024 Consult note* Yoshi Hernandez RDN, LD - 06/20/2023 11:47 AM EDTAssociated Order(s): IP CONSULT TO NUTRITION SERVICES Nutrition Initial Assessment: Nutrition Assessment Reason for Assessment: Admission nursing screening Patient is a 22 y.o. female presenting with POD2 s/p laparoscopic cholecystectomy for symptomatic cholelithiasis. She has worsening abdominal pain since time of surgery. She initially was prescribed a few extra tablets of Percocet to help with additional pain control. 06/20/23 spoke to mother - patient sleeping. Stated has not been able to eat x 3 days with N/V/D. HIDA scan did not show bile leak diet increased to clear liquids Nutrition History: Energy Intake: Poor < 50 % Food and Nutrient History: poor for past 4 days had cholecystectomy 06/17/23 Food Allergies/Intolerances: None GI Symptoms: Diarrhea, Nausea, Vomiting, and Abdominal pain Oral Problems: None Anthropometrics: Height: 160 cm (5' 3) Weight: 57.3 kg (126 lb 5.2 oz) BMI (Calculated): 22.38 IBW/kg (Dietitian Calculated): 52.3 kg Percent of IBW: 110 % Weight History: Daily Weight 06/20/23 : 57.3 kg (126 lb 5.2 oz) 06/18/23 : 55.8 kg (123 lb) 06/17/23 : 56.2 kg (123 lb 14.4 oz) 08/22/22 : 59.9 kg (132 lb) (57%, Z= 0.17)* * Growth percentiles are based on CDC (Girls, 2-20 Years) data. Weight Change %: Weight History / % Weight Change: Stable weight per mother Significant Weight Loss: No Nutrition Focused Physical Exam Findings: defer: patient sleeping Nutrition Significant Labs: CBC Trend: Results from last 7 days Lab Units 06/20/23 0541 06/19/23 1725 06/18/23 1723 WBC AUTO x10*3/uL 6.5 5.0 5.5 RBC AUTO x10*6/uL 4.86 5.03 4.54 HEMOGLOBIN g/dL 13.9 14.2 12.7 HEMATOCRIT % 41.9 43.7 40.2 MCV fL 86 87 89 PLATELETS AUTO x10*3/uL 235 225 208 , Renal Lab Trend: Results from last 7 days Lab Units 06/20/23 0540 06/19/23 1725 06/18/23 1723 POTASSIUM mmol/L 3.7 4.4 3.4* SODIUM mmol/L 131* 130* 136 EGFR mL/min/1.73m*2 >90 >90 >90 BUN mg/dL 7 7 5* CREATININE mg/dL 0.80 0.65 0.83 Nutrition Specific Medications: Scheduled medications ciprofloxacin, 400 mg, intravenous, q12h famotidine PF, , , famotidine, 20 mg, intravenous, q12h MIREYA I/O: Last BM Date: 06/19/23; Dietary Orders (From admission, onward) Start Ordered 06/20/23 1113 Adult diet Clear Liquid Diet effective now Question: Diet type Answer: Clear Liquid 06/20/23 1112 Estimated Needs: Method for Estimating Needs: 25-30 kcal/kg = 8157-9338 kcal Total Protein Estimated Needs (g): 68 g Method for Estimating Needs: 1.0-1.2 gm/kg = 57-68 gm Total Fluid Estimated Needs (mL): 2280 mL Nutrition Diagnosis Malnutrition Diagnosis Patient has Malnutrition Diagnosis: No Nutrition Diagnosis Patient has Nutrition Diagnosis: Yes Diagnosis Status (1): New Nutrition Diagnosis 1: Altered GI function Related to (1): cholecystitis As Evidenced by (1): recent lap cholecystectomy, Nausea, vomiting, diarrhea Nutrition Interventions/Recommendations Nutrition Prescription: Individualized Nutrition Prescription Provided for : Oral nutrition Nutrition Interventions: Interventions: Meals and snacks Goal: Clear liquid diet Collaboration and Referral of Nutrition Care: Team meeting involving nutrition professional Goal: IDT meeting Nutrition Education: Recommend low fat diet when advanced. Mother aware. Written information provided and reviewed. Nutrition Monitoring and Evaluation Food/Nutrient Related History Monitoring Monitoring and Evaluation Plan: Amount of food Amount of Food: Estimated amout of food Criteria: Monitor NPo/clear liquid stated - recommend low fat diet when able to advance Body Composition/Growth/Weight History Monitoring and Evaluation Plan: Weight Weight: Measured weight Criteria: Maintain Time Spent/Follow-up Reminder: Time Spent (min): 30 minutes Last Date of Nutrition Visit: 06/20/23 Nutrition Follow-Up Needed?: 5-7 days Follow up Comment: diet advancement Yoshi Hernandez RDN, LD documented in this [facility] Work Phone: [phone] History and physical note* Bora Benites MD - 06/19/2023 10:00 PM EDT History Of Present Illness Keagan Alicia is a 22 y.o. female Who presented to the emergency room for a 2 days history of nausea, vomiting, abdominal pain and diarrhea after having an elective cholecystectomy procedure done on 06/17/2023. On presentation, vital signs grossly within normal limits. Pertinent findings on blood workup; sodium 130, c bicarbonate 16 and the rest is grossly within normal limits. CT scan of the abdomen pelvis showed diffuse infectious colitis from the cecum to rectum along with moderate amount of free fluid in the dependent pelvic recess. Patient was given in the emergency room IV fluids, morphine, Zofran, and then admitted to the medical service for further investigation and management. Patient had her elective cholecystectomy procedure done on 06/17/2023. No IntraOp complications were noted. It was a same-day surgery and patient was after that discharged back home. The next day, patient presented to the emergency room for abdominal pain nausea vomiting and fatigue. Workup in the ERcame back grossly within normal limits. Patient was given IV fluids and Zofran as well as naproxen and Percocet for the pain and discharged back home with recommendation to follow-up with general surgery in the office. Yet patient continued to experience the same symptoms that were progressively worsening in severity and frequency. There was no fever or chills. So patient presented to the emergency room. ROS 10 systems were reviewed and were negative except for those noted in the history of present illness. Past Medical History Past Medical History: Diagnosis Date Anxiety Depression PTSD (post-traumatic stress disorder) Pertinent medical history also documented in my below narrative Surgical History Past Surgical History: Procedure Laterality Date TONSILLECTOMY Pertinent surgical history also documented in my below narrative Social History She reports that she quit smoking about 16 months ago. Her smoking use included cigarettes. She uses smokeless tobacco. She reports that she does not drink alcohol and does not use drugs. Family History No family history on file. Allergies Patient has no known allergies. Medications Prior to Admission Medication Sig Dispense Refill Last Dose gabapentin (Neurontin) 300 mg capsule Take 1 capsule (300 mg) by mouth once daily at bedtime. 06/16/2023 naproxen (Naprosyn) 500 mg tablet Take 1 tablet (500 mg) by mouth 2 times a day with meals for 7 days. 14 tablet 0 oxyCODONE-acetaminophen (Percocet) 5-325 mg tablet Take 1 tablet by mouth every 6 hours if needed for severe pain (7 - 10) (post-operative pain) for up to 2 days. 6 tablet 0 06/16/2023 venlafaxine XR (Effexor-XR) 150 mg 24 hr capsule Take 1 capsule (150 mg) by mouth once daily. Last Recorded Vitals Blood pressure 99/55, pulse 67, temperature 36.2 C (97.2 F), temperature source Temporal, resp. rate 16, height 1.6 m (5' 3), weight 55.8 kg (123 lb), last menstrual period 06/09/2023, SpO2 98%. Physical Exam Constitutional: General: She is in acute distress. Appearance: She is ill-appearing. Comments: Awake alert and oriented x3 HENT: Mouth/Throat: Pharynx: Oropharynx is clear. Eyes: Pupils: Pupils are equal, round, and reactive to light. Cardiovascular: Rate and Rhythm: Normal rate and regular rhythm. Heart sounds: Normal heart sounds. Pulmonary: Effort: No respiratory distress. Breath sounds: Normal breath sounds. No wheezing or rhonchi. Abdominal: General: Abdomen is flat. Bowel sounds are normal. There is no distension. Palpations: Abdomen is soft. Tenderness: There is abdominal tenderness (lower abdomen). Musculoskeletal: General: No swelling. Skin: General: Skin is warm. Neurological: General: No focal deficit present. Psychiatric: Mood and Affect: Mood normal. Behavior: Behavior normal. Thought Content: Thought content normal. Judgment: Judgment normal. Relevant Results Results for orders placed or performed during the hospital encounter of 06/19/23 (from the past 24 hour(s)) CBC and Auto Differential Result Value Ref Range WBC 5.0 4.4 - 11.3 x10*3/uL nRBC 0.0 0.0 - 0.0 /100 WBCs RBC 5.03 4.00 - 5.20 x10*6/uL Hemoglobin 14.2 12.0 - 16.0 g/dL Hematocrit 43.7 36.0 - 46.0 % MCV 87 80 - 100 fL MCH 28.2 26.0 - 34.0 pg MCHC 32.5 32.0 - 36.0 g/dL RDW 14.1 11.5 - 14.5 % Platelets 225 150 - 450 x10*3/uL Neutrophils % 84.5 40.0 - 80.0 % Immature Granulocytes %, Automated 0.2 0.0 - 0.9 % Lymphocytes % 12.9 13.0 - 44.0 % Monocytes % 2.0 2.0 - 10.0 % Eosinophils % 0.2 0.0 - 6.0 % Basophils % 0.2 0.0 - 2.0 % Neutrophils Absolute 4.20 1.20 - 7.70 x10*3/uL Immature Granulocytes Absolute, Automated 0.01 0.00 - 0.70 x10*3/uL Lymphocytes Absolute 0.64 (L) 1.20 - 4.80 x10*3/uL Monocytes Absolute 0.10 0.10 - 1.00 x10*3/uL Eosinophils Absolute 0.01 0.00 - 0.70 x10*3/uL Basophils Absolute 0.01 0.00 - 0.10 x10*3/uL Basic metabolic panel Result Value Ref Range Glucose 74 74 - 99 mg/dL Sodium 130 (L) 136 - 145 mmol/L Potassium 4.4 3.5 - 5.3 mmol/L Chloride 98 98 - 107 mmol/L Bicarbonate 16 (L) 21 - 32 mmol/L Anion Gap 20 10 - 20 mmol/L Urea Nitrogen 7 6 - 23 mg/dL Creatinine 0.65 0.50 - 1.05 mg/dL eGFR >90 >60 mL/min/1.73m*2 Calcium 9.1 8.6 - 10.3 mg/dL Lipase Result Value Ref Range Lipase 30 9 - 82 U/L Lactate Result Value Ref Range Lactate 1.1 0.4 - 2.0 mmol/L Hepatic function panel Result Value Ref Range Albumin 4.8 3.4 - 5.0 g/dL Bilirubin, Total 0.7 0.0 - 1.2 mg/dL Bilirubin, Direct 0.1 0.0 - 0.3 mg/dL Alkaline Phosphatase 61 33 - 110 U/L ALT 56 (H) 7 - 45 U/L AST 26 9 - 39 U/L Total Protein 7.3 6.4 - 8.2 g/dL hCG, Urine, Qualitative Result Value Ref Range HCG, Urine NEGATIVE NEGATIVE Urinalysis with Reflex Culture and Microscopic Result Value Ref Range Color, Urine Straw Straw, Yellow Appearance, Urine Clear Clear Specific Fletcher, Urine 1.017 1.005 - 1.035 pH, Urine 5.0 5.0, 5.5, 6.0, 6.5, 7.0, 7.5, 8.0 Protein, Urine 30 (1+) (N) NEGATIVE mg/dL Glucose, Urine NEGATIVE NEGATIVE mg/dL Blood, Urine MODERATE (2+) (A) NEGATIVE Ketones, Urine 80 (2+) (A) NEGATIVE mg/dL Bilirubin, Urine NEGATIVE NEGATIVE Urobilinogen, Urine <2.0 <2.0 mg/dL Nitrite, Urine NEGATIVE NEGATIVE Leukocyte Esterase, Urine NEGATIVE NEGATIVE Urinalysis Microscopic Result Value Ref Range WBC, Urine 1-5 1-5, NONE /HPF RBC, Urine 1-2 NONE, 1-2, 3-5 /HPF Mucus, Urine 1+ Reference range not established. /LPF CT abdomen pelvis w IV contrast Result Date: 06/19/2023 Interpreted By: Young Foss, STUDY: CT ABDOMEN PELVIS W IV CONTRAST; 06/19/2023 7:55 pm INDICATION: Signs/Symptoms:recent cholecystectomy, nausea, vomiting, increased pain. Postoperative day to COMPARISON: None. ACCESSION NUMBER(S): [id number] ORDERING CLINICIAN: EUGENE CARCAMO TECHNIQUE: Contiguous axial images of the abdomen and pelvis were obtained after the intravenous administration of iodinated contrast. Coronal and sagittal reformatted images were reconstructed from the axial data. FINDINGS: LOWER CHEST: No acute abnormality. ABDOMEN/PELVIS: ABDOMINAL WALL: There is scattered soft tissue gas in the abdominal wall musculature and subcutaneous tissues related to recent laparoscopic cholecystectomy. There is mild edema in the periumbilical region. There is no abdominal wallfluid collection. LIVER: Hypoattenuation adjacent the falciform ligament likely representing focal fatty infiltration. No suspicious lesions. BILE DUCTS: The common bile duct is upper limits of normal measuring 0.7 cm without premature truncation or termination. There is minimal prominence of the right/left hepatic ducts. GALLBLADDER: Status post cholecystectomy. There is a trace amount of intermediate density fluid in the cholecystectomy bed measuring 2 cm x 1.1 cm x 0.6 cm, likely serosanguineous products. PANCREAS: No significant abnormality. SPLEEN: No significant abnormality. ADRENALS: No significant abnormality. KIDNEYS, URETERS, BLADDER: No significant abnormality. REPRODUCTIVE ORGANS: No significant abnormality. VESSELS: No significant abnormality. RETROPERITONEUM/LYMPH NODES: No enlarged lymph nodes. No acute retroperitoneal abnormality. BOWEL/MESENTERY/PERITONEUM: The stomach appears normal for degree of distention. The small bowel is normal in caliber without inflammatory change. However, there is diffuse inflammation and mild to moderate wall thickening of the colon thatis more pronounced in the ascending and proximal transverse colon in which there is the greatest wall thickening, mucosal hyperenhancement, and surrounding fat stranding. There is liquid stool throughout the colon. There is small volume pneumoperitoneum. There is a trace amount of intermediate density fluid extending into the right paracolic gutter. However there is a moderate amount of fluid throughout the dependent pelvic recesses surrounding the uterus and in the bilateral adnexa and cul-de-sac measuring 15 HU in density. Also noted is mild, thin peritoneal enhancement in the region of [id number]. MUSCULOSKELETAL: No acute osseous abnormality. No suspicious osseous lesion. 1. Diffuse infectious colitis from the cecum to rectum most pronounced within the ascending and proximal transverse colon. 2. Moderate amount of free fluid in the dependent pelvic recesses measuring upper limits of normal for simple vs complicated, associated with mild thin peritoneal enhancement, features suggesting an inflammatory component; therefore, the possibility of peritonitis is raised. 3. Trace serosanguineous fluid in the gallbladder fossa without loculation. 4. Small volume pneumoperitoneum, likely relating to recent postoperative status. MACRO: None. Signed by: Young Foss 06/19/2023 8:23 PM Dictation workstation: [id number] Assessment/Plan 22-year-old female with a past medical history of depression/anxiety and a recent elective laparoscopic cholecystectomy done on 06/17/2023, who presented to the emergency room for a 2 days history of nausea, vomiting, and diarrhea. Blood workup showed hyponatremia and metabolic acidosis. CT scan of the abdomen pelvis showed diffuse infectious colitis from the cecum to rectum, moderate amount of free fluid with possibility of peritonitis, trace serosanguineous fluid in the gallbladder fossa without loculation, and small volume pneumoperitoneum. I will admit the patient to the inpatient medical service with telemetry and vital signs monitoring. Make the patient NPO. Give IV fluids normal saline at rate of 100 cc/hour. Repeat CBC and BMP in the morning. Order GI panel and C. difficile. Consult general surgery. Order HIDA scan. And until all results are back, I will start the patient on IV Flagyl and ciprofloxacin. Antiemetics and pain control Pepcid for GI prophylaxis, SCDs for DVT prophylaxis Full code (This note was generated with voice recognition software and may contain errors including spelling,grammar, syntax and misrecognition of what was dictated, that are not fully corrected) Bora Benites MD [facility] Work Phone: [phone] History and physical note* Bora Benites MD - 06/19/2023 10:00 PM EDT History Of Present Illness Keagan Alicia is a 22 y.o. female Who presented to the emergency room for a 2 days history of nausea, vomiting, abdominal pain and diarrhea after having an elective cholecystectomy procedure done on 06/17/2023. On presentation, vital signs grossly within normal limits. Pertinent findings on blood workup; sodium 130, c bicarbonate 16 and the rest is grossly within normal limits. CT scan of the abdomen pelvis showed diffuse infectious colitis from the cecum to rectum along with moderate amount of free fluid in the dependent pelvic recess. Patient was given in the emergency room IV fluids, morphine, Zofran, and then admitted to the medical service for further investigation and management. Patient had her elective cholecystectomy procedure done on 06/17/2023. No IntraOp complications were noted. It was a same-day surgery and patient was after that discharged back home. The next day, patient presented to the emergency room for abdominal pain nausea vomiting and fatigue. Workup in the ERcame back grossly within normal limits. Patient was given IV fluids and Zofran as well as naproxen and Percocet for the pain and discharged back home with recommendation to follow-up with general surgery in the office. Yet patient continued to experience the same symptoms that were progressively worsening in severity and frequency. There was no fever or chills. So patient presented to the emergency room. ROS 10 systems were reviewed and were negative except for those noted in the history of present illness. Past Medical History Past Medical History: Diagnosis Date Anxiety Depression PTSD (post-traumatic stress disorder) Pertinent medical history also documented in my below narrative Surgical History Past Surgical History: Procedure Laterality Date TONSILLECTOMY Pertinent surgical history also documented in my below narrative Social History She reports that she quit smoking about 16 months ago. Her smoking use included cigarettes. She uses smokeless tobacco. She reports that she does not drink alcohol and does not use drugs. Family History No family history on file. Allergies Patient has no known allergies. Medications Prior to Admission Medication Sig Dispense Refill Last Dose gabapentin (Neurontin) 300 mg capsule Take 1 capsule (300 mg) by mouth once daily at bedtime. 06/16/2023 naproxen (Naprosyn) 500 mg tablet Take 1 tablet (500 mg) by mouth 2 times a day with meals for 7 days. 14 tablet 0 oxyCODONE-acetaminophen (Percocet) 5-325 mg tablet Take 1 tablet by mouth every 6 hours if needed for severe pain (7 - 10) (post-operative pain) for up to 2 days. 6 tablet 0 06/16/2023 venlafaxine XR (Effexor-XR) 150 mg 24 hr capsule Take 1 capsule (150 mg) by mouth once daily. Last Recorded Vitals Blood pressure 99/55, pulse 67, temperature 36.2 C (97.2 F), temperature source Temporal, resp. rate 16, height 1.6 m (5' 3), weight 55.8 kg (123 lb), last menstrual period 06/09/2023, SpO2 98%. Physical Exam Constitutional: General: She is in acute distress. Appearance: She is ill-appearing. Comments: Awake alert and oriented x3 HENT: Mouth/Throat: Pharynx: Oropharynx is clear. Eyes: Pupils: Pupils are equal, round, and reactive to light. Cardiovascular: Rate and Rhythm: Normal rate and regular rhythm. Heart sounds: Normal heart sounds. Pulmonary: Effort: No respiratory distress. Breath sounds: Normal breath sounds. No wheezing or rhonchi. Abdominal: General: Abdomen is flat. Bowel sounds are normal. There is no distension. Palpations: Abdomen is soft. Tenderness: There is abdominal tenderness (lower abdomen). Musculoskeletal: General: No swelling. Skin: General: Skin is warm. Neurological: General: No focal deficit present. Psychiatric: Mood and Affect: Mood normal. Behavior: Behavior normal. Thought Content: Thought content normal. Judgment: Judgment normal. Relevant Results Results for orders placed or performed during the hospital encounter of 06/19/23 (from the past 24 hour(s)) CBC and Auto Differential Result Value Ref Range WBC 5.0 4.4 - 11.3 x10*3/uL nRBC 0.0 0.0 - 0.0 /100 WBCs RBC 5.03 4.00 - 5.20 x10*6/uL Hemoglobin 14.2 12.0 - 16.0 g/dL Hematocrit 43.7 36.0 - 46.0 % MCV 87 80 - 100 fL MCH 28.2 26.0 - 34.0 pg MCHC 32.5 32.0 - 36.0 g/dL RDW 14.1 11.5 - 14.5 % Platelets 225 150 - 450 x10*3/uL Neutrophils % 84.5 40.0 - 80.0 % Immature Granulocytes %, Automated 0.2 0.0 - 0.9 % Lymphocytes % 12.9 13.0 - 44.0 % Monocytes % 2.0 2.0 - 10.0 % Eosinophils % 0.2 0.0 - 6.0 % Basophils % 0.2 0.0 - 2.0 % Neutrophils Absolute 4.20 1.20 - 7.70 x10*3/uL Immature Granulocytes Absolute, Automated 0.01 0.00 - 0.70 x10*3/uL Lymphocytes Absolute 0.64 (L) 1.20 - 4.80 x10*3/uL Monocytes Absolute 0.10 0.10 - 1.00 x10*3/uL Eosinophils Absolute 0.01 0.00 - 0.70 x10*3/uL Basophils Absolute 0.01 0.00 - 0.10 x10*3/uL Basic metabolic panel Result Value Ref Range Glucose 74 74 - 99 mg/dL Sodium 130 (L) 136 - 145 mmol/L Potassium 4.4 3.5 - 5.3 mmol/L Chloride 98 98 - 107 mmol/L Bicarbonate 16 (L) 21 - 32 mmol/L Anion Gap 20 10 - 20 mmol/L Urea Nitrogen 7 6 - 23 mg/dL Creatinine 0.65 0.50 - 1.05 mg/dL eGFR >90 >60 mL/min/1.73m*2 Calcium 9.1 8.6 - 10.3 mg/dL Lipase Result Value Ref Range Lipase 30 9 - 82 U/L Lactate Result Value Ref Range Lactate 1.1 0.4 - 2.0 mmol/L Hepatic function panel Result Value Ref Range Albumin 4.8 3.4 - 5.0 g/dL Bilirubin, Total 0.7 0.0 - 1.2 mg/dL Bilirubin, Direct 0.1 0.0 - 0.3 mg/dL Alkaline Phosphatase 61 33 - 110 U/L ALT 56 (H) 7 - 45 U/L AST 26 9 - 39 U/L Total Protein 7.3 6.4 - 8.2 g/dL hCG, Urine, Qualitative Result Value Ref Range HCG, Urine NEGATIVE NEGATIVE Urinalysis with Reflex Culture and Microscopic Result Value Ref Range Color, Urine Straw Straw, Yellow Appearance, Urine Clear Clear Specific Fletcher, Urine 1.017 1.005 - 1.035 pH, Urine 5.0 5.0, 5.5, 6.0, 6.5, 7.0, 7.5, 8.0 Protein, Urine 30 (1+) (N) NEGATIVE mg/dL Glucose, Urine NEGATIVE NEGATIVE mg/dL Blood, Urine MODERATE (2+) (A) NEGATIVE Ketones, Urine 80 (2+) (A) NEGATIVE mg/dL Bilirubin, Urine NEGATIVE NEGATIVE Urobilinogen, Urine <2.0 <2.0 mg/dL Nitrite, Urine NEGATIVE NEGATIVE Leukocyte Esterase, Urine NEGATIVE NEGATIVE Urinalysis Microscopic Result Value Ref Range WBC, Urine 1-5 1-5, NONE /HPF RBC, Urine 1-2 NONE, 1-2, 3-5 /HPF Mucus, Urine 1+ Reference range not established. /LPF CT abdomen pelvis w IV contrast Result Date: 06/19/2023 Interpreted By: Young Foss, STUDY: CT ABDOMEN PELVIS W IV CONTRAST; 06/19/2023 7:55 pm INDICATION: Signs/Symptoms:recent cholecystectomy, nausea, vomiting, increased pain. Postoperative day to COMPARISON: None. ACCESSION NUMBER(S): [id number] ORDERING CLINICIAN: EUGENE CARCAMO TECHNIQUE: Contiguous axial images of the abdomen and pelvis were obtained after the intravenous administration of iodinated contrast. Coronal and sagittal reformatted images were reconstructed from the axial data. FINDINGS: LOWER CHEST: No acute abnormality. ABDOMEN/PELVIS: ABDOMINAL WALL: There is scattered soft tissue gas in the abdominal wall musculature and subcutaneous tissues related to recent laparoscopic cholecystectomy. There is mild edema in the periumbilical region. There is no abdominal wallfluid collection. LIVER: Hypoattenuation adjacent the falciform ligament likely representing focal fatty infiltration. No suspicious lesions. BILE DUCTS: The common bile duct is upper limits of normal measuring 0.7 cm without premature truncation or termination. There is minimal prominence of the right/left hepatic ducts. GALLBLADDER: Status post cholecystectomy. There is a trace amount of intermediate density fluid in the cholecystectomy bed measuring 2 cm x 1.1 cm x 0.6 cm, likely serosanguineous products. PANCREAS: No significant abnormality. SPLEEN: No significant abnormality. ADRENALS: No significant abnormality. KIDNEYS, URETERS, BLADDER: No significant abnormality. REPRODUCTIVE ORGANS: No significant abnormality. VESSELS: No significant abnormality. RETROPERITONEUM/LYMPH NODES: No enlarged lymph nodes. No acute retroperitoneal abnormality. BOWEL/MESENTERY/PERITONEUM: The stomach appears normal for degree of distention. The small bowel is normal in caliber without inflammatory change. However, there is diffuse inflammation and mild to moderate wall thickening of the colon thatis more pronounced in the ascending and proximal transverse colon in which there is the greatest wall thickening, mucosal hyperenhancement, and surrounding fat stranding. There is liquid stool throughout the colon. There is small volume pneumoperitoneum. There is a trace amount of intermediate density fluid extending into the right paracolic gutter. However there is a moderate amount of fluid throughout the dependent pelvic recesses surrounding the uterus and in the bilateral adnexa and cul-de-sac measuring 15 HU in density. Also noted is mild, thin peritoneal enhancement in the region of [id number]. MUSCULOSKELETAL: No acute osseous abnormality. No suspicious osseous lesion. 1. Diffuse infectious colitis from the cecum to rectum most pronounced within the ascending and proximal transverse colon. 2. Moderate amount of free fluid in the dependent pelvic recesses measuring upper limits of normal for simple vs complicated, associated with mild thin peritoneal enhancement, features suggesting an inflammatory component; therefore, the possibility of peritonitis is raised. 3. Trace serosanguineous fluid in the gallbladder fossa without loculation. 4. Small volume pneumoperitoneum, likely relating to recent postoperative status. MACRO: None. Signed by: Young Foss 06/19/2023 8:23 PM Dictation workstation: [id number] Assessment/Plan 22-year-old female with a past medical history of depression/anxiety and a recent elective laparoscopic cholecystectomy done on 06/17/2023, who presented to the emergency room for a 2 days history of nausea, vomiting, and diarrhea. Blood workup showed hyponatremia and metabolic acidosis. CT scan of the abdomen pelvis showed diffuse infectious colitis from the cecum to rectum, moderate amount of free fluid with possibility of peritonitis, trace serosanguineous fluid in the gallbladder fossa without loculation, and small volume pneumoperitoneum. I will admit the patient to the inpatient medical service with telemetry and vital signs monitoring. Make the patient NPO. Give IV fluids normal saline at rate of 100 cc/hour. Repeat CBC and BMP in the morning. Order GI panel and C. difficile. Consult general surgery. Order HIDA scan. And until all results are back, I will start the patient on IV Flagyl and ciprofloxacin. Antiemetics and pain control Pepcid for GI prophylaxis, SCDs for DVT prophylaxis Full code (This note was generated with voice recognition software and may contain errors including spelling,grammar, syntax and misrecognition of what was dictated, that are not fully corrected) Bora Benites MD documented in this [facility] Work Phone: [phone]) 879-905305-09-2024 Emergency department Note* Eugene Carcamo PA-C - 06/19/2023 4:28 PM EDT Patient gloria 22-year-old female who presents to the emergency room with a chief complaint of abdominal pain, nausea and vomiting. She states that she had a cholecystectomy performed 2 days ago by surgeon, Dr. Preciado. She states that she has been unable to keep any food or medications down as she vomits anytime she attempts to take anything p.o. She denies any fever but does report chills. She states that she was seen in the emergency department yesterday and reports that her symptoms are worse. She also reports that she has had some diarrhea. No chest pain or shortness of breath. Denies any urinary symptoms. Review of Systems Constitutional: Negative for chills and fever. HENT: Negative for ear pain and sore throat. Eyes: Negative for pain and visual disturbance. Respiratory: Negative for cough and shortness of breath. Cardiovascular: Negative for chest pain and palpitations. Gastrointestinal: Positive for abdominal pain, diarrhea, nausea and vomiting. Genitourinary: Negative for dysuria and hematuria. Musculoskeletal: Negative for arthralgias and back pain. Skin: Negative for color change and rash. Neurological: Negative for seizures and syncope. All other systems reviewed and are negative. Physical Exam Vitals and nursing note reviewed. Constitutional: General: She is not in acute distress. Appearance: Normal appearance. She is well-developed. HENT: Head: Normocephalic and atraumatic. Eyes: Extraocular Movements: Extraocular movements intact. Conjunctiva/sclera: Conjunctivae normal. Pupils: Pupils are equal, round, and reactive to light. Cardiovascular: Rate and Rhythm: Normal rate and regular rhythm. Heart sounds: No murmur heard. Pulmonary: Effort: Pulmonary effort is normal. No respiratory distress. Breath sounds: Normal breath sounds. Abdominal: Palpations: Abdomen is soft. Tenderness: There is abdominal tenderness (RUQ). Comments: Surgical incisions appear to be well healing. No surrounding erythema Musculoskeletal: General: No swelling, tenderness, deformity or signs of injury. Normal range of motion. Cervical back: Neck supple. Skin: General: Skin is warm and dry. Capillary Refill: Capillary refill takes less than 2 seconds. Neurological: Mental Status: She is alert. Psychiatric: Mood and Affect: Mood normal. Labs Reviewed CBC WITH AUTO DIFFERENTIAL - Abnormal Result Value WBC 5.0 nRBC 0.0 RBC 5.03 Hemoglobin 14.2 Hematocrit 43.7 MCV 87 MCH 28.2 MCHC 32.5 RDW 14.1 Platelets 225 Neutrophils % 84.5 Immature Granulocytes %, Automated 0.2 Lymphocytes % 12.9 Monocytes % 2.0 Eosinophils % 0.2 Basophils % 0.2 Neutrophils Absolute 4.20 Immature Granulocytes Absolute, Automated 0.01 Lymphocytes Absolute 0.64 (*) Monocytes Absolute 0.10 Eosinophils Absolute 0.01 Basophils Absolute 0.01 BASIC METABOLIC PANEL - Abnormal Glucose 74 Sodium 130 (*) Potassium 4.4 Chloride 98 Bicarbonate 16 (*) Anion Gap 20 Urea Nitrogen 7 Creatinine 0.65 eGFR >90 Calcium 9.1 HEPATIC FUNCTION PANEL - Abnormal Albumin 4.8 Bilirubin, Total 0.7 Bilirubin, Direct 0.1 Alkaline Phosphatase 61 ALT 56 (*) AST 26 Total Protein 7.3 URINALYSIS WITH REFLEX CULTURE AND MICROSCOPIC - Abnormal Color, Urine Straw Appearance, Urine Clear Specific Fletcher, Urine 1.017 pH, Urine 5.0 Protein, Urine 30 (1+) (*) Glucose, Urine NEGATIVE Blood, Urine MODERATE (2+) (*) Ketones, Urine 80 (2+) (*) Bilirubin, Urine NEGATIVE Urobilinogen, Urine <2.0 Nitrite, Urine NEGATIVE Leukocyte Esterase, Urine NEGATIVE HCG, URINE, QUALITATIVE - Normal HCG, Urine NEGATIVE LIPASE - Normal Lipase 30 Narrative: Venipuncture immediately after or during the administration of Metamizole may lead to falsely low results. Testing should be performed immediately prior to Metamizole dosing. LACTATE - Normal Lactate 1.1 Narrative: Venipuncture immediately after or during the administration of Metamizole may lead to falsely low results. Testing should be performed immediately prior to Metamizole dosing. STOOL PATHOGEN PANEL, PCR C. DIFFICILE, PCR URINALYSIS WITH REFLEX CULTURE AND MICROSCOPIC Narrative: The following orders were created for panel order Urinalysis with Reflex Culture and Microscopic. Procedure Abnormality Status --------- ------ Urinalysis with Reflex C...[[id number]] Abnormal Final result Extra Urine Emerson Tube[[id number]] In process Please view results for these tests on the individual orders. EXTRA URINE EMERSON TUBE URINALYSIS MICROSCOPIC WITH REFLEX CULTURE WBC, Urine 1-5 RBC, Urine 1-2 Mucus, Urine 1+ CT abdomen pelvis w IV contrast Final Result 1. Diffuse infectious colitis from the cecum to rectum most pronounced within the ascending and proximal transverse colon. 2. Moderate amount of free fluid in the dependent pelvic recesses measuring upper limits of normal for simple vs complicated, associated with mild thin peritoneal enhancement, features suggesting an inflammatory component; therefore, the possibility of peritonitis is raised. 3. Trace serosanguineous fluid in the gallbladder fossa without loculation. 4. Small volume pneumoperitoneum, likely relating to recent postoperative status. MACRO: None. Signed by: Young Foss 06/19/2023 8:23 PM Dictation workstation: [id number] Procedures Medical Decision Making Patient is 2 days post-op from a cholecystectomy performed by Dr. Llanes. This is the patient's second visit in two days, presented yesterday for similar symptoms. Reports nausea, vomiting, and increased pain. Patient when questioned admitted that she was having diarrhea-has not had any BM in the ED. CT shows diffuse infectious colitis, moderate amount of free fluid with possibility of peritonitis, trace serosanguineous fluid in the gallbladder fossa without loculation, and small volume pneumoperitoneum. I discussed CT scan results with Dr. Llanes along with labs, she would like the patient admitted to your service with plans to do a HIDA scan in the morning. She came and evaluated the patient in the ED. She would like the patient admitted for post-op pain control, IV hydration, and concern for colitis. Amount and/or Complexity of Data Reviewed Labs: ordered. Decision-making details documented in ED Course. Radiology: ordered and independent interpretation performed. Decision-making details documented in ED Course. Discussion of management or test interpretation with external provider(s): Consult with Dr. Llanes Diagnoses as of 06/19/232156 Acute post-operative pain Status post cholecystectomy Vomiting and diarrhea Eugene Carcamo PA-C 06/19/232157 documented in this [facility] Work Phone: [phone] Physician Emergency department Note* Eugene Carcamo PA-C - 06/19/2023 4:28 PM EDT Patient gloria 22-year-old female who presents to the emergency room with a chief complaint of abdominal pain, nausea and vomiting. She states that she had a cholecystectomy performed 2 days ago by surgeon, Dr. Preciado. She states that she has been unable to keep any food or medications down as she vomits anytime she attempts to take anything p.o. She denies any fever but does report chills. She states that she was seen in the emergency department yesterday and reports that her symptoms are worse. She also reports that she has had some diarrhea. No chest pain or shortness of breath. Denies any urinary symptoms. Review of Systems Constitutional: Negative for chills and fever. HENT: Negative for ear pain and sore throat. Eyes: Negative for pain and visual disturbance. Respiratory: Negative for cough and shortness of breath. Cardiovascular: Negative for chest pain and palpitations. Gastrointestinal: Positive for abdominal pain, diarrhea, nausea and vomiting. Genitourinary: Negative for dysuria and hematuria. Musculoskeletal: Negative for arthralgias and back pain. Skin: Negative for color change and rash. Neurological: Negative for seizures and syncope. All other systems reviewed and are negative. Physical Exam Vitals and nursing note reviewed. Constitutional: General: She is not in acute distress. Appearance: Normal appearance. She is well-developed. HENT: Head: Normocephalic and atraumatic. Eyes: Extraocular Movements: Extraocular movements intact. Conjunctiva/sclera: Conjunctivae normal. Pupils: Pupils are equal, round, and reactive to light. Cardiovascular: Rate and Rhythm: Normal rate and regular rhythm. Heart sounds: No murmur heard. Pulmonary: Effort: Pulmonary effort is normal. No respiratory distress. Breath sounds: Normal breath sounds. Abdominal: Palpations: Abdomen is soft. Tenderness: There is abdominal tenderness (RUQ). Comments: Surgical incisions appear to be well healing. No surrounding erythema Musculoskeletal: General: No swelling, tenderness, deformity or signs of injury. Normal range of motion. Cervical back: Neck supple. Skin: General: Skin is warm and dry. Capillary Refill: Capillary refill takes less than 2 seconds. Neurological: Mental Status: She is alert. Psychiatric: Mood and Affect: Mood normal. Labs Reviewed CBC WITH AUTO DIFFERENTIAL - Abnormal Result Value WBC 5.0 nRBC 0.0 RBC 5.03 Hemoglobin 14.2 Hematocrit 43.7 MCV 87 MCH 28.2 MCHC 32.5 RDW 14.1 Platelets 225 Neutrophils % 84.5 Immature Granulocytes %, Automated 0.2 Lymphocytes % 12.9 Monocytes % 2.0 Eosinophils % 0.2 Basophils % 0.2 Neutrophils Absolute 4.20 Immature Granulocytes Absolute, Automated 0.01 Lymphocytes Absolute 0.64 (*) Monocytes Absolute 0.10 Eosinophils Absolute 0.01 Basophils Absolute 0.01 BASIC METABOLIC PANEL - Abnormal Glucose 74 Sodium 130 (*) Potassium 4.4 Chloride 98 Bicarbonate 16 (*) Anion Gap 20 Urea Nitrogen 7 Creatinine 0.65 eGFR >90 Calcium 9.1 HEPATIC FUNCTION PANEL - Abnormal Albumin 4.8 Bilirubin, Total 0.7 Bilirubin, Direct 0.1 Alkaline Phosphatase 61 ALT 56 (*) AST 26 Total Protein 7.3 URINALYSIS WITH REFLEX CULTURE AND MICROSCOPIC - Abnormal Color, Urine Straw Appearance, Urine Clear Specific Fletcher, Urine 1.017 pH, Urine 5.0 Protein, Urine 30 (1+) (*) Glucose, Urine NEGATIVE Blood, Urine MODERATE (2+) (*) Ketones, Urine 80 (2+) (*) Bilirubin, Urine NEGATIVE Urobilinogen, Urine <2.0 Nitrite, Urine NEGATIVE Leukocyte Esterase, Urine NEGATIVE HCG, URINE, QUALITATIVE - Normal HCG, Urine NEGATIVE LIPASE - Normal Lipase 30 Narrative: Venipuncture immediately after or during the administration of Metamizole may lead to falsely low results. Testing should be performed immediately prior to Metamizole dosing. LACTATE - Normal Lactate 1.1 Narrative: Venipuncture immediately after or during the administration of Metamizole may lead to falsely low results. Testing should be performed immediately prior to Metamizole dosing. STOOL PATHOGEN PANEL, PCR C. DIFFICILE, PCR URINALYSIS WITH REFLEX CULTURE AND MICROSCOPIC Narrative: The following orders were created for panel order Urinalysis with Reflex Culture and Microscopic. Procedure Abnormality Status --------- ------ Urinalysis with Reflex C...[[id number]] Abnormal Final result Extra Urine Emerson Tube[[id number]] In process Please view results for these tests on the individual orders. EXTRA URINE EMERSON TUBE URINALYSIS MICROSCOPIC WITH REFLEX CULTURE WBC, Urine 1-5 RBC, Urine 1-2 Mucus, Urine 1+ CT abdomen pelvis w IV contrast Final Result 1. Diffuse infectious colitis from the cecum to rectum most pronounced within the ascending and proximal transverse colon. 2. Moderate amount of free fluid in the dependent pelvic recesses measuring upper limits of normal for simple vs complicated, associated with mild thin peritoneal enhancement, features suggesting an inflammatory component; therefore, the possibility of peritonitis is raised. 3. Trace serosanguineous fluid in the gallbladder fossa without loculation. 4. Small volume pneumoperitoneum, likely relating to recent postoperative status. MACRO: None. Signed by: Young Foss 06/19/2023 8:23 PM Dictation workstation: [id number] Procedures Medical Decision Making Patient is 2 days post-op from a cholecystectomy performed by Dr. Llanes. This is the patient's second visit in two days, presented yesterday for similar symptoms. Reports nausea, vomiting, and increased pain. Patient when questioned admitted that she was having diarrhea-has not had any BM in the ED. CT shows diffuse infectious colitis, moderate amount of free fluid with possibility of peritonitis, trace serosanguineous fluid in the gallbladder fossa without loculation, and small volume pneumoperitoneum. I discussed CT scan results with Dr. Llanes along with labs, she would like the patient admitted to your service with plans to do a HIDA scan in the morning. She came and evaluated the patient in the ED. She would like the patient admitted for post-op pain control, IV hydration, and concern for colitis. Amount and/or Complexity of Data Reviewed Labs: ordered. Decision-making details documented in ED Course. Radiology: ordered and independent interpretation performed. Decision-making details documented in ED Course. Discussion of management or test interpretation with external provider(s): Consult with Dr. Llanes Diagnoses as of 06/19/232156 Acute post-operative pain Status post cholecystectomy Vomiting and diarrhea Eugene Carcamo PA-C 06/19/232157 [facility] Work Phone: 1([phone] Hospital Discharge instructions* Discharge Instructions* Ariana Nuno RN - 06/17/2023 11:[address] Llanes's printed home going instructions. Be sure to use condoms for control for the next month, at least. [facility] Work Phone: [phone]) [phone] Miscellaneous Notes* Op Note - Alla Llanes MD - 06/17/2023 9:32 AM EDT Operative Report Patient: Keagan Alicia : 2000 Date of Operation: 06/17/23 Pre-Operative Diagnosis: Symptomatic Cholelithiasis Post-Operative Diagnosis: Symptomatic Cholelithiasis Procedure: Laparoscopic Cholecystectomy Surgeon: Alla Llanes MD Jazz Musician: n/a Anesthesia: General Findings: Few omental adhesions to liver edge laterally. Otherwise, normal anatomy. EBL: 10ml Specimen: Gallbladder Case Type: Clean-Contaminated Disposition: PACU Indication: Patient is a 22 y.o. female with symptomatic cholelithiasis. Risks and benefits of cholecystectomy were discussed and the patient was agreeable to proceed with surgery. Description: The patient was brought to the operating room and placed in supine position. General anesthesia was induced. The patient's abdomen was prepped and draped. Through a vertical umbilical incision, a 12mm port was placed using Jose technique. Three 5mm ports were placed in the upper abdomen under direct visualization. The patient was placed in reverse Trendelenburg position and tilted slightly towards the left. The gallbladder appeared normal. The gallbladder was grasped by the fundus and retracted cephalad. She flimsy omental adhesions to the liver edge laterally, but these did not interfere with visualization and were therefore left in place. The peritoneum was opened to separate the gallbladder neck from the liver. The cystic duct and artery were dissected and a critical view of safety was obtained. The cystic duct and artery were clipped, with two clips proximally and oneclip distally, and divided. The gallbladder was removed from the hepatic bed using electrocautery. There was no spillage of bile at any point during the case. Hemostasis was confirmed. The camera waschanged to a 5mm scope. The gallbladder was placed in an Endocatch bag and removed via the umbilical port. The 5mm ports were removed. The fascial defect at the umbilicus was closed with 0 Vicryl. Skin incisions were closed with 4-0 Vicryl and steri strips. The patient tolerated the procedure well,was extubated and transferred to PACU in stable condition. Alla Llanes MD 06/17/2023 * Preprocedure Instructions - Moriah Segovia RN - 06/12/2023 9:24 AM EDT No outpatient medications have been marked as taking for the 06/17/23 encounter (Hospital Encounter). NPO Instructions: Nothing to eat or drink after midnight Additional Instructions: Will need bulk delivery driver home, will receive call day before surgery with arrival time [facility] Work Phone: [phone]) [phone] Note* Op Note - Alla Llanes MD - 06/17/2023 9:32 AM EDT Operative Report Patient: Keagan Alicia : 2000 Date of Operation: 06/17/23 Pre-Operative Diagnosis: Symptomatic Cholelithiasis Post-Operative Diagnosis: Symptomatic Cholelithiasis Procedure: Laparoscopic Cholecystectomy Surgeon: Alla Llanes MD Jazz Musician: n/a Anesthesia: General Findings: Few omental adhesions to liver edge laterally. Otherwise, normal anatomy. EBL: 10ml Specimen: Gallbladder Case Type: Clean-Contaminated Disposition: PACU Indication: Patient is a 22 y.o. female with symptomatic cholelithiasis. Risks and benefits of cholecystectomy were discussed and the patient was agreeable to proceed with surgery. Description: The patient was brought to the operating room and placed in supine position. General anesthesia was induced. The patient's abdomen was prepped and draped. Through a vertical umbilical incision, a 12mm port was placed using Jose technique. Three 5mm ports were placed in the upper abdomen under direct visualization. The patient was placed in reverse Trendelenburg position and tilted slightly towards the left. The gallbladder appeared normal. The gallbladder was grasped by the fundus and retracted cephalad. She flimsy omental adhesions to the liver edge laterally, but these did not interfere with visualization and were therefore left in place. The peritoneum was opened to separate the gallbladder neck from the liver. The cystic duct and artery were dissected and a critical view of safety was obtained. The cystic duct and artery were clipped, with two clips proximally and oneclip distally, and divided. The gallbladder was removed from the hepatic bed using electrocautery. There was no spillage of bile at any point during the case. Hemostasis was confirmed. The camera waschanged to a 5mm scope. The gallbladder was placed in an Endocatch bag and removed via the umbilical port. The 5mm ports were removed. The fascial defect at the umbilicus was closed with 0 Vicryl. Skin incisions were closed with 4-0 Vicryl and steri strips. The patient tolerated the procedure well,was extubated and transferred to PACU in stable condition. Alla Llanes MD 06/17/[address]23 [facility] Work Phone: [phone]) [phone] Attending History and physical note* Alla Llanes MD - 06/17/2023 8:25 AM EDT H&P reviewed. The patient was examined and there are no changes to the H&P. Source Note - Alla Llanes MD - 06/03/2023 2:00 PM EDT General Surgery Follow-up Visit Patient: Keagan Alicia : 2000 Date of Visit: 06/03/23 Chief Complaint: RUQ pain History of Present Illness: Keagan Alicia is a 22-year-old female with symptomatic cholelithiasis. I previously evaluated her but she was 22 weeks at the time and she wanted to wait untilafter delivering before proceeding with cholecystectomy. She presents now to discuss cholecystectomy. During her , she had 2 isolated episodes of right upper quadrant abdominal pain that radiated to her back. Both resulted from eating fast food. She had nausea and vomiting associated with that pain. In between episodes, she was symptom-free. On both occasions, she was evaluated in the emergency department where LFTs and WBC were within normal limits. She has had an ultrasound which confirms the presence of gallstones. She had no biliary ductal dilation on that ultrasound. She had a normal vaginal delivery of a healthy baby boy in December. Since time of delivery, she denies any further episodes of right upper quadrant abdominal pain. She does have plans for future pregnancies. Medical History: Symptomatic cholelithiasis Surgical History: No previous abdominal surgery. Tonsillectomy with adenoidectomy Home Medications: Prior to Admission medications Not on File Allergies: has No Known Allergies. Family History: No family history of hepatobiliary disease. Social History: Smoker. No alcohol or drug use. Lives alone with her son. She has someone who would stay with her while recovering from surgery. 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 ROS: Constitutional: no fever, sweats, and chills Cardiovascular: No chest pain Respiratory: No cough or shortness of breath Gastrointestinal: + Episodic postprandial right upper quadrant abdominal pain with associated nausea and vomiting Genitourinary: no dark colored urine Musculoskeletal: no weakness or swelling Integumentary: no jaundice Neurological: no confusion Endocrine: no heat or cold intolerance Heme/Lymph: no easy bruising or bleeding Objective: BP 98/58 Pulse 90 Ht 1.6 m (5' 3) BMI 23.38 kg/m Physical Exam: Constitutional: No acute distress, conversant, pleasant Neurologic: alert and oriented Psych: appropriate affect Ears, Nose, Mouth and Throat: mucus membranes moist Pulmonary: No labored breathing Cardiovascular: Regular rate and rhythm Abdomen: soft, non-distended, BMI 23, umbilical piercing scar, no surgical scars, non-tender to palpation Musculoskeletal: Moves all extremities, no edema Skin: no jaundice Labs: Labs from 07/12/22 reviewed: WBC 6.3, hemoglobin 10.7, LFTs within normal limits including T. bili 0.4 Imaging: RUQ US from 07/12/22 reviewed: Multiple stones within the gallbladder, no pericholecystic fluid or wall thickening. Sonographic Maynard sign negative. No biliary ductal dilation, CBD measures 4 mm. Assessment and Plan: Keagan Alicia is a 22 y.o. old female with symptomatic cholelithiasis. Risks, benefits and alternatives of laparoscopic cholecystectomy were discussed with the patient. This included risk of bleeding, infection, viscous injury, conversion to an open procedure, bile leakage or bile duct injury, post-cholecystectomy diarrhea, possible non-resolution or recurrence of symptoms, and possible need for subsequent endoscopic or surgical interventions. The patient was agreeable to proceed with surgery and is scheduled for laparoscopic cholecystectomy on 06/17/23. Alla Llanes MD 06/03/[address]23 [facility] Work Phone: 1([phone]) 118-999705-07-2024 History and physical note* Alla Llanes MD - 06/17/2023 8:25 AM EDT H&P reviewed. The patient was examined and there are no changes to the H&P. Source Note - Alla Llanes MD - 06/03/2023 2:00 PM EDT General Surgery Follow-up Visit Patient: Keagan Alicia : 2000 Date of Visit: 06/03/23 Chief Complaint: RUQ pain History of Present Illness: Keagan Alicia is a 22-year-old female with symptomatic cholelithiasis. I previously evaluated her but she was 22 weeks at the time and she wanted to wait untilafter delivering before proceeding with cholecystectomy. She presents now to discuss cholecystectomy. During her , she had 2 isolated episodes of right upper quadrant abdominal pain that radiated to her back. Both resulted from eating fast food. She had nausea and vomiting associated with that pain. In between episodes, she was symptom-free. On both occasions, she was evaluated in the emergency department where LFTs and WBC were within normal limits. She has had an ultrasound which confirms the presence of gallstones. She had no biliary ductal dilation on that ultrasound. She had a normal vaginal delivery of a healthy baby boy in December. Since time of delivery, she denies any further episodes of right upper quadrant abdominal pain. She does have plans for future pregnancies. Medical History: Symptomatic cholelithiasis Surgical History: No previous abdominal surgery. Tonsillectomy with adenoidectomy Home Medications: Prior to Admission medications Not on File Allergies: has No Known Allergies. Family History: No family history of hepatobiliary disease. Social History: Smoker. No alcohol or drug use. Lives alone with her son. She has someone who would stay with her while recovering from surgery. 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 ROS: Constitutional: no fever, sweats, and chills Cardiovascular: No chest pain Respiratory: No cough or shortness of breath Gastrointestinal: + Episodic postprandial right upper quadrant abdominal pain with associated nausea and vomiting Genitourinary: no dark colored urine Musculoskeletal: no weakness or swelling Integumentary: no jaundice Neurological: no confusion Endocrine: no heat or cold intolerance Heme/Lymph: no easy bruising or bleeding Objective: BP 98/58 Pulse 90 Ht 1.6 m (5' 3) BMI 23.38 kg/m Physical Exam: Constitutional: No acute distress, conversant, pleasant Neurologic: alert and oriented Psych: appropriate affect Ears, Nose, Mouth and Throat: mucus membranes moist Pulmonary: No labored breathing Cardiovascular: Regular rate and rhythm Abdomen: soft, non-distended, BMI 23, umbilical piercing scar, no surgical scars, non-tender to palpation Musculoskeletal: Moves all extremities, no edema Skin: no jaundice Labs: Labs from 07/12/22 reviewed: WBC 6.3, hemoglobin 10.7, LFTs within normal limits including T. bili 0.4 Imaging: RUQ US from 07/12/22 reviewed: Multiple stones within the gallbladder, no pericholecystic fluid or wall thickening. Sonographic Maynard sign negative. No biliary ductal dilation, CBD measures 4 mm. Assessment and Plan: Keagan Alicia is a 22 y.o. old female with symptomatic cholelithiasis. Risks, benefits and alternatives of laparoscopic cholecystectomy were discussed with the patient. This included risk of bleeding, infection, viscous injury, conversion to an open procedure, bile leakage or bile duct injury, post-cholecystectomy diarrhea, possible non-resolution or recurrence of symptoms, and possible need for subsequent endoscopic or surgical interventions. The patient was agreeable to proceed with surgery and is scheduled for laparoscopic cholecystectomy on 06/17/23. Alla Llanes MD 06/03/2023 documented in this [facility] Work Phone: 1(712) 718-372705-02-2024 NoteHNO ID: [id number] Author: DIPTI FREED, DO Service: ? Author Type: Physician Type: Progress Notes Filed: 06/12/2023 11:15 Note Text: FOLLOW UP - PSYCHIATRIC PROGRESS NOTE Visit Type:Virtual Visit utilizing two-way audio and video for at least a portion of the visit. Consent for virtual visit obtained verbally. Confidentiality limitations with virtual visits reviewed with the patient and guardian, if present, who have accepted the risk verbally prior to proceeding with encounter. I have communicated my name and active licensure. The patient's identity and physical location were verified at the time of this visit. Either the patient or their legal entry level marketing representative has been informed of the risks and benefits of -- and alternatives to -- treatment through a remote evaluation and consents to proceed with the evaluation remotely. Reason for Visit: Outpatient follow-up and safety monitoring of previously prescribed psychiatric medication, psychotherapy or other treatment CC: Can you give me something for my moods as having mood swings and anxiety HPI: Pt states she has been feeling like bad stuff always happens to her . After she had her daughter the heat stopped working in the car. She feels she is being punished but says marietta-d is punishing her . Effexor has helped some but still having panic attacks once a day sometimes more. Nights her mind won't shut off as she is thinking about too many things. She has periods of spending of about a thousand dollars on things for her kids . She isn't . She has episodes of intense anger with her grandfather who watches her kids when she is at work. She smokes Mj to calm down when she gets upset every other day. She has back pain from the epidural when she had Renezme with a spinal leak from it and her back so using Mj for the pain. The gabapentin 300 mg hasn't helped with the pain. 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 Risks and benefits of the medication, including any black box warnings, were discussed with the patient. Interval Progress: a bit better as mood swings not as bad PATIENT DATA: Generalized Anxiety Disorder Scale (STEPHON-7) 05/06/2023 06/12/2023 STEPHON - 7 SCORES Score 19 18 (0-4) minimal anxiety, (5-9) mild anxiety, (10-14) moderate anxiety, (15-21) severe anxiety Patient Health Questionnaire (PHQ-9) 05/06/2023 06/12/2023 PHQ-9 Score 20 15 (0-4) minimal depression, (5-9) mild depression, (10-14) moderate depression, (15-19) moderately severe depression, (20-27) severe depression PROMIS Global Health 05/06/2023 PROMIS Global Health - (T-Scores - the mean of general population = 50. Five points is a clinically meaningful difference.) Physical T-Score 47.7 Mental T-Score 25.1 PAST MEDICAL HISTORY Diagnosis Date Anemia Chronic tonsillitis Depression 10/08/2016 Gall stone 07/2022 cholecystectomy after delivery Psychiatric disorder depression, anxiety and PTSD PAST SURGICAL HISTORY Procedure Laterality Date TONSILLECTOMY HX Current Outpatient Medications Medication Sig Dispense Refill venlafaxine ER (EFFEXOR XR) 150 mg 24 hr capsule TAKE 1 CAPSULE BY MOUTH EVERY DAY 90 capsule 1 cyclobenzaprine (FLEXERIL) 10 mg tablet Take 1 tablet by mouth three times a day as needed for muscle spasm (or pain). Patient should start on May 20, 2023. 21 tablet 0 gabapentin (NEURONTIN) 300 mg capsule Take 1 capsule by mouth daily at bedtime for 30 days. 30 capsule 0 Current Facility-Administered Medications Medication Dose Route Frequency Provider Last Rate Last Admin medroxyPROGESTERone 150 mg injection (DEPO-PROVERA) 150 mg INTRAMUSCULAR every 12 weeks Prabhu Ortez MD 150 mg at 02/14/23 1625 ROS: denied PFSH: none VITAL SIGNS: There were no vitals filed for this visit. MENTAL STATUS EXAM: CONSTITUTIONAL: Well groomed ORIENTATION: Person, Place, Time and Situation MEMORY: Recent intact, Remote intact CONCENTRATION: Normal MOOD: irritable AFFECT: Full and appropriate to topic SPEECH : Clear AND distinct LANGUAGE : Normal ASSOCIATIONS: Intact THOUGHT PROCESS : Logical, Coherent, and Rational PROGRESSION : There was no evidence of disturbance in thought perception or progression. FUND OF KNOWLEDGE : Appropriate and Adequate SUICIDE: None HOMICIDE: None DATA REVIEWED: None DIAGNOSIS: PTSD , ppd depression panic disorder MJ use disorder PLAN: Previous med trials zoloft at 11 or 12 not helpful, buspar 2. EMDR 3. Neurontin 600 mg po qhs and 300 mg po bid for anxiety , mood and pain counseling to get off mj will rec 4. [facility] 5. Effexor XL 150 mg will add lexapro 10 mg po daily for pain 6. Abilify 2.5 mg po daily for a few days then increase to 5 mg po daily r/b/a 7. Lamictal 25 mg po for 2 weeks then 50 mg po daily for 2 weeks then 100 mg po daily I spent a total of 30 minutes on (more content not included)...[facility]05-02-2024 History of Present illness Narrative* Dipti Freed, - 06/12/2023 10:43 AM EDT FOLLOW UP - PSYCHIATRIC PROGRESS NOTE Visit Type:Virtual Visit utilizing two-way audio and video for at least a portion of the visit. Consent for virtual visit obtained verbally. Confidentiality limitations with virtual visits reviewed with the patient and guardian, if present, who have accepted the risk verbally prior to proceeding with encounter. I have communicated my name and active licensure. The patient's identity and physical location were verified at the time of this visit. Either the patient or their legal entry level marketing representative has been informed of the risks and benefits of -- and alternatives to -- treatment through a remote evaluation and consents to proceed with the evaluation remotely. Reason for Visit: Outpatient follow-up and safety monitoring of previously prescribed psychiatric medication, psychotherapy or other treatment CC: Can you give me something for my moods as having mood swings and anxiety HPI: Pt states she has been feeling like bad stuff always happens to her . After she had her daughter the heat stopped working in the car. She feels she is being punished butsays g-d is punishing her . Effexor has helped some but still having panic attacks once a day sometimes more. Nights her mind won't shut off as she is thinking about too many things. She has periods of spending of about a thousand dollars on things for her kids . She isn't . She has episodes of intense anger with her grandfather who watches her kids when she is at work. She smokes Mj to calm down when she gets upset every other day. She has back pain from the epidural when she had Renezme with a spinal leak from it and her back sousing Mj for the pain. The gabapentin 300 mg hasn't helped with the pain. 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 Risks and benefits of the medication, including any black box warnings, were discussed with the patient. Interval Progress: a bit better as mood swings not as bad PATIENT DATA: Generalized Anxiety Disorder Scale (STEPHON-7) 05/06/2023 06/12/2023 STEPHON - 7 SCORES Score 19 18 (0-4) minimal anxiety, (5-9) mild anxiety, (10-14) moderate anxiety, (15-21) severe anxiety Patient Health Questionnaire (PHQ-9) 05/06/2023 06/12/2023 PHQ-9 Score 20 15 (0-4) minimal depression, (5-9) mild depression, (10-14) moderate depression, (15-19) moderately severe depression, (20-27) severe depression PROMIS Global Health 05/06/2023 PROMIS Global Health - (T-Scores - the mean of general population = 50. Five points is a clinicallymeaningful difference.) Physical T-Score 47.7 Mental T-Score 25.1 PAST MEDICAL HISTORY Diagnosis Date Anemia Chronic tonsillitis Depression 10/08/2016 Gall stone 07/2022 cholecystectomy after delivery Psychiatric disorder depression, anxiety and PTSD PAST SURGICAL HISTORY Procedure Laterality Date TONSILLECTOMY HX Current Outpatient Medications Medication Sig Dispense Refill venlafaxine ER (EFFEXOR XR) 150 mg 24 hr capsule TAKE 1 CAPSULE BY MOUTH EVERY DAY 90 capsule 1 cyclobenzaprine (FLEXERIL) 10 mg tablet Take 1 tablet by mouth three times a day as needed for muscle spasm (or pain). Patient should start on May 20, 2023. 21 tablet 0 gabapentin (NEURONTIN) 300 mg capsule Take 1 capsule by mouth daily at bedtime for 30 days. 30 capsule 0 Current Facility-Administered Medications Medication Dose Route Frequency Provider Last Rate Last Admin medroxyPROGESTERone 150 mg injection (DEPO-PROVERA) 150 mg INTRAMUSCULAR every 12 weeks Prabhu Ortez MD 150 mg at 02/14/23 1625 ROS: denied PFSH: none VITAL SIGNS: There were no vitals filed for this visit. MENTAL STATUS EXAM: CONSTITUTIONAL: Well groomed ORIENTATION: Person, Place, Time and Situation MEMORY: Recent intact, Remote intact CONCENTRATION: Normal MOOD: irritable AFFECT: Full and appropriate to topic SPEECH : Clear & distinct LANGUAGE : Normal ASSOCIATIONS: Intact THOUGHT PROCESS : Logical, Coherent, and Rational PROGRESSION : There was no evidence of disturbance in thought perception or progression. FUND OF KNOWLEDGE : Appropriate and Adequate SUICIDE: None HOMICIDE: None DATA REVIEWED: None DIAGNOSIS: PTSD , ppd depression panic disorder MJ use disorder PLAN: Previous med trials zoloft at 11 or 12 not helpful, buspar 2. EMDR 3. Neurontin 600 mg po qhs and 300 mg po bid for anxiety , mood and pain counseling to get off mj will rec 4. [facility] 5. Effexor XL 150 mg will add lexapro 10 mg po daily for pain 6. Abilify 2.5 mg po daily for a few days then increase to 5 mg po daily r/b/a 7. Lamictal 25 mg po for 2 weeks then 50 mg po daily for 2 weeks then 100 mg po daily I spent a total of 30 minutes on the date of the service which included preparing to see the patient, irow-mx-[id number] patient care, and completing clinical documentation. ADD ON PSYCHOTHERAPY CODE : No SIGNATURE: Dipti Freed DO PATIENT NAME: Keagan Alicia DATE: June 12, 2023 TIME: 10:43 AM [facility]* Preprocedure Instructions - Moriah Segovia RN - 06/12/2023 9:24 AM EDT No outpatient medications have been marked as taking for the 06/17/23 encounter (Hospital Encounter). NPO Instructions: Nothing to eat or drink after midnight Additional Instructions: Will need bulk delivery driver home, will receive call day before surgery with arrival time [facility] Work Phone: 1(258) 386-283204-25-2024 Telephone encounter Note* Telephone Encounter - Corinne Caicedo - 06/05/2023 1:43 PM EDT Pharmacy requesting a 90 day supply The following medication(s) is being requested: LAST APPT - 05/13/23 NEXT APPT - 06/12/23 Requested Prescriptions Pending Prescriptions Disp Refills venlafaxine ER (EFFEXOR XR) 150 mg 24 hr capsule [Pharmacy Med Name: VENLAFAXINE HCL ER 150 MG CAP]90 capsule 1 Sig: TAKE 1 CAPSULE BY MOUTH EVERY DAY Please process accordingly Corinne Caicedo [facility]04-25-2024 Miscellaneous Notes* Telephone Encounter - Corinne Caicedo - 06/05/2023 1:43 PM EDT Pharmacy requesting a 90 day supply The following medication(s) is being requested: LAST APPT - 05/13/23 NEXT APPT - 06/12/23 Requested Prescriptions Pending Prescriptions Disp Refills venlafaxine ER (EFFEXOR XR) 150 mg 24 hr capsule [Pharmacy Med Name: VENLAFAXINE HCL ER 150 MG CAP]90 capsule 1 Sig: TAKE 1 CAPSULE BY MOUTH EVERY DAY Please process accordingly Corinne Caicedo [facility] [place] History of Present illness Narrative* Alla Llanes MD - 06/03/2023 2:00 PM EDT General Surgery Follow-up Visit Patient: Keagan Alicia : 2000 Date of Visit: 06/03/23 Chief Complaint: RUQ pain History of Present Illness: Keagan Alicia is a 22-year-old female with symptomatic cholelithiasis. I previously evaluated her but she was 22 weeks at the time and she wanted to wait untilafter delivering before proceeding with cholecystectomy. She presents now to discuss cholecystectomy. During her , she had 2 isolated episodes of right upper quadrant abdominal pain that radiated to her back. Both resulted from eating fast food. She had nausea and vomiting associated with that pain. In between episodes, she was symptom-free. On both occasions, she was evaluated in the emergency department where LFTs and WBC were within normal limits. She has had an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 take place on the and Friday of each month Location: [facility] [address] [place] [address] Room 122 (library room) 7-8:00 p.m. When you enter the taoist parking lot off of [address] the entrance door closest to our meeting room is on the front of the building toward the right. For those who are more comfortable with a virtual platform, POEM offers online support group options several days of the week. To register for an online group or to find out more about POEM, website at: https://mhaohio.org/get-help/uziderxp-ngcnhv-ksxhkx/poem-services/ offer a confidential helpline: private Facebook group is called [facility] Here are the groups they offer: Traumatic childbirth resources: Http://pattch.org/ https://www.TechDevilstemitopeSpreadsave.Prifloat/ documented in this encounterSelect Medical [facility]03-13-2024 History of Present illness Narrative* Gino Valero APRN.CNM - 04/23/2023 1:53 PM EDT Keagan Alicia is a 22 year old female 4 months who presents for problem visit of irregular bleeding. Stated spotting and /or bleeding since received Depo Provera injection in February. This washer first injection and is due for second injection next month. She would like to discuss other options for contraception. She has tried Nexplanon in the past but felt it had a negative effect on hermood and she had it removed. She is currently experiencing feelings of depression and has had difficulty getting in to see a counselor. She feels as though depression has worsened since receiving Depo Provera injection. She does not plan of getting any further injections. She is not currently sexually active and is formula feeding infant. OB History T1 L2 SAB3 IAB0 Ectopic0 Multiple0 Live Births2 REVIEW OF SYSTEMS Abdomen: No bloating, early satiety, indigestion, or increased flatulence. No abdominal pain, nausea, vomiting, diarrhea, or constipation. Bladder: No dysuria, gross hematuria, urinary frequency, urinary urgency, or incontinence. Breast: No breast lumps, nipple d/c, overlying skin changes, redness or skin retraction. Expanded ROS: N/A Allergies and current medication updated:Yes EXAM: BP 108/70 Wt 121 lb (54.9kg) LMP 01/29/2023 GENERAL: pleasant, female in no apparent distress HEENT: Normocephalic and atraumatic NECK: Supple and full range of motion DERMATOLOGY: Normal and without lesions BREAST: deferred CHEST: Normal inspiratory effort ABDOMEN: Deferred PELVIC: deferred BIMANUAL: deferred NEURO: alert and oriented x3,exam grossly non-focal EXTREMITIES: normal ASSESSMENT/PLAN: 1. Spotting - ICD9: 623.8, ICD10: N92.0 (primary diagnosis) 2. Breakthrough bleeding on depo provera - ICD9: 626.6, ICD10: N92.1 3. Episode of recurrent major depressive disorder, unspecified depression episode severity (HCC) - ICD9: 296.30, ICD10: F33.9 4. Anxiety - ICD9: 300.00, ICD10: F41.9 5. PTSD (post-traumatic stress disorder) - ICD9: 309.81, ICD10: F43.10 6. Post depression - ICD9: 648.44, 311, ICD10: F53.0 - Reviewed spotting and / or bleeding can occur with DepoProvera - CBC - She does not plan on continuing Depo Provera - Would like to see how mood is effected after stopping Depo Provera - If becomes sexually active- will use condoms - CONSULT TO WOMEN'S BEHAVIORAL HEALTH placed - Handout on MH services provided - RTO - 3 months for follow up and to discuss if desires to try another form of control Gino Valero APRN.CNM documented in this encounterSelect Medical [facility]01-29-2024 Miscellaneous Notes* Telephone Encounter - Antionette Ward RN - 03/10/2023 10:05 AM EST Left message to call office. Antionette Ward RN * Telephone Encounter - Mary Jo Chance MD - 03/10/2023 9:22 AM EST No- she can take a UPT if concerned. It is likely menses * Telephone Encounter - Chantelle Marquis RN - 03/10/2023 9:16 AM EST Patient called stating that she thinks she's having a missed AB. LMP 01/29/23. Had her 1st depo injection on 02/14/23 with negative UPT. Woke up yesterday morning with her underwear soaked in blood and passing blood clots a little larger than a quarter. Her pain was more than a 10. Took 1,000 MG ofIbuprofen every 6 hours in addition to Tylenol every 4 hours. Advised that 600-800 MG is the max dose. Today her cramps are a 5. Changing a pad every 2 hours. Not soaked. Had chest pain yesterday. Denies CP or SOB today. Advised that this could be her menses. Please advise if you would like to order hCG. Chantelle Marquis, RN documented in this encounterSelect Medical [facility]12-21-2023 History of Present illness Narrative* Prabhu Ortez MD - 01/30/2023 12:12 PM EST VISIT Keagan Alicia is a 22 year old year old here for visit. Delivery Summary: ROS/ Recovery: Feeding: Bottle feeding problems: None Menses since delivery: spotting Menstrual pattern prior to : Regular periods [place] since delivery: Not resumed Depression: denies symptoms of depression. Feels like she is doing OK. OB Depression and Anxiety Screening- This Encounter (since 01/29/2023) Over the past 2 weeks have you felt down, depressed, or hopeless? Negative Over the past two weeks, have you felt little interest or pleasure in doing things? Negative Feeling nervous, anxious or on edge 2-More than half the days Not being able to stop or control worrying 2-More than half the days Anxiety Pre-Screening Total (If >/= 3 additional questions will be reviewed) 4 Worrying too much about different things 2-More than half the days Trouble relaxing 2-More than half the days Being so restless that it is hard to sit still 2-More than half the days Becoming easily annoyed or irritable 2-More than half the days Feeling afraid, as if something awful might happen 2-More than half the days Anxiety (STEPHON) Full Screening Total 14 Emotional support: Yes Bowel symptoms: Negative for abdominal discomfort, blood in stools or black stools and change in bowel habits Abdomen: N/A Bladder symptoms: No dysuria, gross hematuria, urinary frequency, urinary urgency, or incontinence Other issues: None Last Pap: N/A PAST MEDICAL HISTORY Diagnosis Date Anemia Chronic tonsillitis Depression 10/08/2016 Gall stone 07/2022 cholecystectomy after delivery Psychiatric disorder depression, anxiety and PTSD PAST SURGICAL HISTORY Procedure Laterality Date TONSILLECTOMY HX FAMILY HISTORY Problem Relation Age of Onset other (migraines) Mother None Father Ovarian cancer Maternal Grandmother Social History Tobacco Use Smoking status: Never Passive exposure: Yes Smokeless tobacco: Never Vaping Use Vaping Use: Some days Substances: Nicotine Substance Use Topics Alcohol use: No Drug use: No PHYSICAL EXAMINATION: BP 114/72 Ht 5' 3 (1.60m) Wt 140 lb (63.5kg) LMP 01/29/2023 BMI 24.81 kg/(m^2). GENERAL: pleasant, female in no apparent distress HEENT: Normocephalic, atraumatic, mucus membranes moist, and no lesions NECK: Supple, full range of motion, no adenopathy, and thyroid normal DERMATOLOGY: Normal, without lesions, non-icteric, and non-hirsute BREAST: soft, non-tender, symmetric, no dominant mass, normal nipple-areolar complex, no lymphadenopathy, and no nipple discharge CHEST: Normal inspiratory effort ABDOMEN: soft, non-tender, and no masses. INCISION: N/A PELVIC: external genitalia normal, normal Bartholin's glands, urethra, [place]'s glands, no vulvar lesions, no cervical lesions, good vaginal support, physiologic discharge present, normal appearing perineal body and perianal region BIMANUAL: uterus normal size, shape and consistency, no adnexal masses, and non-tender NEURO: alert and oriented x3,exam grossly non-focal EXTREMITIES: normal ASSESSMENT AND PLAN: 22 year old status post with normal course. Contraception plan: Depo Provera Follow up: RTC for annual exams and PRN RTC for Depo-Provera injections Prabhu Ortez MD documented in this encounterSelect Medical [facility]ty [facility]11-06-2023 History of Present illness Narrative* Iveth Kohli RN - 12/16/2022 8:44 AM EST Patient delivered via by Evangelina on 12/15/22 at [facility]. See OB history. Iveth Kohli RN documented in this encounterSelect Medical Special[facility]11-03-2023 History of Present illness Narrative* Joyce Huston MA - 12/13/2022 12:35 PM EDT POPULATION HEALTH NAVIGATION OUTREACH Action/FYI 1st attempt: Called and left message to call back to discuss bindery supervisor. MC message sent. Patient Identified by Name and : NO Outreach Outcome/Action Unable to reach patient: Left message MyChart message sent Did you use a PCP flex slot to schedule this appointment? N/A Reason for Outreach [place] Payer: Payor: [facility] MEDICAID / Plan: [facility] MEDICA[facility] / Product Type: Medicaid / Care Gap Reviewed:: N/A Reminder: Reminder note to check Health Maintenance for items below Health Maintenance items due: Covid-19 Vaccine(1) Never done Meningococcal B Vaccine: Consider Based On Risk(1 of 2 - Patient Seeks Protection) Never done Influenza Vaccine(1) due on 10/11/2022 Navigation Signature: Joyce Briones MA December 13, 2022 12:35 PM documented in this encounterSelect [facility]-24-[facility]23 Miscellaneous Notes* Quick Notes - Prabhu Ortez MD - 12/03/2022 3:03 PM EDT KJ - VB No. LOF - possible when just went to bathroom. CTXS No. Movement: present. Other c/o:No. Medication list reviewed. Physical Exam See Flow Sheet Gen: no accute distress, well appearing Abd: soft, nontender, gravid Pelvic: SSE - negative pool/fern/nitrazine A/P 36w6d Estimated Date of Delivery: 12/25/22 Labs: GBS done Anemia - encouraged Fe & Regular PNV use Labor precautions reviewed & kick counts reviewed. Prahbu Ortez MD documented in this encounterSelect Medical [facility] [place]10-24-2023 Instructions* Patient Instructions* Kayla Christiansen Ma - 12/03/2022 2:21 PM EDT SEQUENTIAL SCREENINGS The [facility] offers sequential screenings for women who are interested in screenings for chromosomal abnormalities and certain defects during a . The sequential screen combinesultrasound and blood tests to determine the risk of chromosomal abnormalities, including Down's Syndrome (Trisomy 21) and Trisomy 18, as well as open neural tube defects including spina bifida. Ultrasound examination is performed between 11 weeks and 13 weeks gestational age. Blood tests are drawn after the ultrasound and again later in the between 15 and 21 weeks gestational age. Please let your physician know if you are interested in this testing. It will require an appointment withour fuel conversion technician. This is not an ultrasound performed by a physician in our office during a routine visit. SIGNS AND SYMPTOMS OF LABOR 1. Contractions every 10 minutes or more often 2. Clear, pink, or brownish fluid (water) leaking from vagina 3. Feeling that baby is pushing down, pressure 4. Low, dull backache 5. Cramps that feel like a period 6. Cramps with or without diarrhea If you notice any of the above symptoms, contact our office at [phone] and ask to speak with anurse. After hours, you can call doctors registry at [phone] OR call [facility] at [phone] ask to have the doctor promotions manager paged. If you consider this an emergency, dial 9-0-7 or go to your nearest emergency department. NEED HELP? Are you dealing with a violent or abusive relationship? Are you a victim of rape or sexual assult? Call [facility] ([place]) 24 hour Crisis Hotline: 942.614.4997 or 826-361-8168. MANUAL Your Guide to a Healthy manual is now on-line. Visit [email or web address] to download your free copy documented in this encounterSelect Medical Special[facility] [place]10-16-2023 Miscellaneous Notes* Quick Notes - Jaquelin Hi APRN.CNM - 11/25/2022 6:04 PM EDT ITZEL-S: Keagan Alicia is a 22 year old female who presents at 34w5d with LUZ:12/25/2022, for a routine visit. Good FM. Denies headache, visual changes, chest pain, shortness of breath, vaginal bleeding, leakage of fluid, or dysuria. Feeling well, no complaints. O: See flow sheet Gen: No apparent distress Abd: Gravid, nontender ASSESSMENT/PLAN: 1. with care elsewhere in third trimester 2. 34 weeks gestation of P: 1) PTL precautions reviewed and when to call 2) RTO in one week 3) GBS in one week Jaquelin Hi APRN.CNM documented in this encounterSelect Medical [facility] [place]10-16-2023 Miscellaneous Notes* Telephone Encounter - Josefa Ricks RN - 11/25/2022 11:29 AM EDT 2nd risk assessment form submitted 11/25/22 Josefa Ricks RN documented in this encounterSelect Medical [facility] [place]10-10-2023 Miscellaneous Notes* Quick Notes - Prabhu Ortez MD - 11/19/2022 4:07 PM EDT KJ - VB No. LOF No. CTXS Yes - irregular & resolve with rest. Movement: present. Other c/o: No. Medication list reviewed. Physical Exam See Flow Sheet Gen: no accute distress, well appearing Abd: soft, nontender, gravid A/P 34w6d Estimated Date of Delivery: 12/25/22 Anemia - encouraged Fe & Regular PNV use H/o PTD - cont prometrium PTL precautions reviewed, Kick counts reviewed. Prabhu Ortez MD documented in this encounterSelect Medical [facility] [place]10-10-2023 Instructions* Patient Instructions* Kayla Christiansen Ma - 11/19/2022 3:41 PM EDT SEQUENTIAL SCREENINGS The [facility] offers sequential screenings for women who are interested in screenings for chromosomal abnormalities and certain defects during a . The sequential screen combinesultrasound and blood tests to determine the risk of chromosomal abnormalities, including Down's Syndrome (Trisomy 21) and Trisomy 18, as well as open neural tube defects including spina bifida. Ultrasound examination is performed between 11 weeks and 13 weeks gestational age. Blood tests are drawn after the ultrasound and again later in the between 15 and 21 weeks gestational age. Please let your physician know if you are interested in this testing. It will require an appointment withour fuel conversion technician. This is not an ultrasound performed by a physician in our office during a routine visit. SIGNS AND SYMPTOMS OF LABOR 1. Contractions every 10 minutes or more often 2. Clear, pink, or brownish fluid (water) leaking from vagina 3. Feeling that baby is pushing down, pressure 4. Low, dull backache 5. Cramps that feel like a period 6. Cramps with or without diarrhea If you notice any of the above symptoms, contact our office at [phone] and ask to speak with anurse. After hours, you can call doctors registry at [phone] OR call [facility] at [phone] ask to have the doctor promotions manager paged. If you consider this an emergency, dial 9-1-1 or go to your nearest emergency department. NEED HELP? Are you dealing with a violent or abusive relationship? Are you a victim of rape or sexual assult? Call [facility] ([place]) 24 hour Crisis Hotline: 621.858.8995 or 724-101-5730. MANUAL Your Guide to a Healthy manual is now on-line. Visit [email or web address] to download your free copy documented in this encounterSelect Medical [facility] [place]10-09-2023 Instructions* Patient Instructions* Steven Cruz Cma - 11/18/2022 1:12 PM EDT SEQUENTIAL SCREENINGS The [facility] offers sequential screenings for women who are interested in screenings for chromosomal abnormalities and certain defects during a . The sequential screen combinesultrasound and blood tests to determine the risk of chromosomal abnormalities, including Down's Syndrome (Trisomy 21) and Trisomy 18, as well as open neural tube defects including spina bifida. Ultrasound examination is performed between 11 weeks and 13 weeks gestational age. Blood tests are drawn after the ultrasound and again later in the between 15 and 21 weeks gestational age. Please let your physician know if you are interested in this testing. It will require an appointment withour fuel conversion technician. This is not an ultrasound performed by a physician in our office during a routine visit. SIGNS AND SYMPTOMS OF LABOR 1. Contractions every 10 minutes or more often 2. Clear, pink, or brownish fluid (water) leaking from vagina 3. Feeling that baby is pushing down, pressure 4. Low, dull backache 5. Cramps that feel like a period 6. Cramps with or without diarrhea If you notice any of the above symptoms, contact our office at [phone] and ask to speak with anurse. After hours, you can call doctors registry at [phone] OR call [facility] at [phone] ask to have the doctor promotions manager paged. If you consider this an emergency, dial 0-7-8 or go to your nearest emergency department. NEED HELP? Are you dealing with a violent or abusive relationship? Are you a victim of rape or sexual assult? Call [facility] ([place]) 24 hour Crisis Hotline: 255.648.1813 or 553-124-6190. MANUAL Your Guide to a Healthy manual is now on-line. Visit [email or web address] to download your free copy documented in this encounterSelect Medical Specialty [facility] [place]09-14-2023 Miscellaneous Notes* Telephone Encounter - Annmarie Rene RN - 10/24/2022 9:50 AM EDT 1st risk assessment form submitted 10/24/22 Annmarie Rene RN documented in this encounterSelect Medical Specialty [facility] [place]08-31-2023 History of Present illness Narrative* Chantelle Marquis RN - 10/10/2022 11:34 AM EDT Received outside medical records from [facility] [employer]. Updated patient's chart. Records placed in AGmailbox for upcoming NOB. Chantelle Marquis RN documented in this encounterSelect Medical Specialty [facility] [place]07-20-2023 Discharge summary Author Jimmy Anna [facility] August 29, 2022 5:52pm Note Date/Time August 29, 2022 3:46 pm [facility] Medical Records Department [address] [place] [address] Emergency Department Summary 08/29/22 MR#: [id number] Acct: [id number] Name: KEAGAN ALICIA Rep #:[id number] : 2000 21 From: Jimmy Anna MD PCP: Care Physician,No Primary Status :REG ER Location: ED HPI History of Present Illness Chief Complaint: Abd Pain Narrative Narrative: Patient presents with epigastric and right upper quadrant pain. She has a history of gallstones. She is also 23 weeks . She however does not have any lower abdominal pain or vaginal bleeding or any kind of vaginal discharge or leaking. She has no urinary symptoms. She did have some nausea. She was treated in the ambulance with fentanyl and I believe antiemetics and hersymptoms are improving. No fevers or chills. PFSH PFSH Medical History Depression Home Medications NK 08/21/18 [History Last Taken Unknown] Allergy/AdvReac Type Severity Reaction Status Date / Time No Known Allergies Allergy Verified 08/29/22 15:30 Social History Smoking Status: Never smoker ROS ROS ED ROS Narrative Past medical history: Reviewed Medications: Reviewed Social history: Noncontributory Review of systems: General: No fever Eyes: No visual changes ENT: No upper airway congestion, normal voice Neck: No neck pain Cardiovascular: No chest pain Respiratory: No shortness of breath or cough Gastrointestinal: As in HPI Genitourinary: No dysuria, no vaginal bleeding Musculoskeletal: Denies myalgias no difficulty with ambulation Skin: No rash Neurological: No memory loss, confusion or any focal weakness EXAM Physical Exam Narrative Exam Narrative: Physical exam General: Patient appears comfortable as I walk in Head: Normocephalic, Atraumatic Eyes: Conjunctiva not pale ENT: Slightly dry mucous membranes Neck: Supple, Nontender, No lymphadenopathy Cardiovascular: Regular rate, Regular rhythm Respiratory: No distress, CTA bilaterally Abdomen: Soft, gravid right around the umbilicus but no tenderness below the umbilicus or in the uterine region. Most of her pain is epigastric although shedoes have some slight right upper quadrant abdominal pain. No guarding or rebound. Negative Maynard's. Back: Nontender, Normal Inspection. Negative for: CVA tenderness Extremities: Nontender, No edema Skin: Normal color, No rash Const Vital Signs: 08/29/22 15:30 08/29/22 17:44 Temperature 96.8 F L Temperature Source Temporal Pulse Rate 61 60 Respiratory Rate 14 16 Blood Pressure 104/58 L 96/54 L Blood Pressure Mean 73 68 Pulse Ox 100 100 Oxygen Delivery Method Room Air Room Air MDM MDM MDM Narrative Medical decision making narrative: Patient is found to have gallbladder disease again although the common bile ductis slightly enlarged from last time. Regardless at this time she has negative Maynard's she has normal white count and she does not have elevated transaminasesor lipase or bilirubin. She does not have choledocholithiasis, clinically she does not have cholecystitis. She does have gallbladder disease, she told me shedid eat some eggs salad. I again went over the diet for her as far as how to avoid repeat gallbladder attacks. I talked to surgery, Dr. Uriarte who can followher outpatient at this time the plan is still to avoid surgery until after delivery of the baby. This is quite reasonable. She was given analgesia via EMS I did not give her any analgesia in the ED and she has continued to be pain-free and currently she is asymptomatic. We will discharge in stable condition. She does not meet admission criteria or emergent surgical criteria. Lab Data Labs: Laboratory Results - last 24 hr 08/29/22 08/29/22 15:51 17:10 WBC 9.1 RBC 3.23 L Hgb 9.8 L Hct 30.8 L MCV 95.4 MCH 30.3 MCHC 31.8 L RDW Std Deviation 47.0 H RDW Coeff of Lorna 13.4 Plt Count 142 L MPV 12.2 H Immature Gran % (Auto) 0.300 Neut % (Auto) 78.5 H Lymph % (Auto) 13.8 L [place] % (Auto) 6.4 Eos % (Auto) 0.8 Baso % (Auto) 0.2 Absolute Neuts (auto) 7.2 Absolute Lymphs (auto) 1.26 Nucleated RBC % 0 Sodium 138 Potassium 3.9 Chloride 108 H Carbon Dioxide 23.0 Anion Gap 7 BUN 8 Creatinine 0.52 L Estim Creat Clear Calc 143.95 Est GFR (MDRD) Af Amer 196 Est GFR (MDRD) Non-Af 162 BUN/Creatinine Ratio 15.5 Glucose 77 Calcium 7.7 L Total Bilirubin 0.40 AST 17 ALT 19 Alkaline Phosphatase 54 Total Protein 5.6 L Albumin 2.5 L Globulin 3.1 Albumin/Globulin Ratio 0.8 L Lipase 25 Urine Color Yellow Urine Clarity Sl. Cloudy Urine pH 6.0 Ur Specific Fletcher 1.020 Urine Protein 15 H Urine Glucose (UA) Normal Urine Ketones 50 H Urine Occult Blood Negative Urine Nitrite Negative Urine Bilirubin Negative Urine Urobilinogen Normal Ur Leukocyte Esterase 25 H Urine RBC 0 SEEN Urine WBC 0-5 SEEN Ur Squamous Epith Cells 0-5 SEEN Urine Bacteria Not Reportable Urine Mucus 1+ Radiography Diagnostic Testing: Clinical Impression(s) from Imaging Studies Gallbladder Ultrasound 08/29/22 15:42 IMPRESSION: Mild hepatomegaly and fatty infiltrated liver.. Thick-walled gallbladder with stones without definitive evidence for acute inflammation. Common bile duct is upper normal in size without definitive evidence for intraductal stone. If concern for acute cholecystitis HIDA scan recommended Electronically Signed: Steven Alvarez MD at 16:47 EDT , Discharge Plan Triage Chief Complaint: Abd Pain ED Provider: Jimmy Anna Dx/Rx/DC Orders Clinical Impression: Second trimester , Disease of gallbladder Instructions: Gallstones Dc Prescriptions: No Action NK Primary Care Provider: Care Physician,No Primary Referrals: Malia Uriarte MD [Med Staff - Active Staff] - 3-5 Days Care Physician,No Primary [Primary Care Provider] - Disposition Disposition: Home, Self Care What to do if you have Problems For any increased pain, shortness of breath, bleeding, nausea or vomiting, chestpain, or any unexpected problems, contact your Primary Care Provider. Call Doctors Registry ([phone]) or report to the closest Emergency Room. Call 911 if necessary. 08/29/22 1752 <Electronically signed by Jimmy Anna MD> Cosigner Signature (if applicable): CC: No Primary Care Physician ~ Signed [facility] Work Phone: 1(447) 568-482707-08-2023 Discharge summary Author Kristofer Low [facility] August 17, 2022 1:22pm Note Date/Time August 17, 2022 10:43 am [facility] Medical Records Department [address] [place] [address] Emergency Department Summary 08/17/22 MR#: [id number] Acct: [id number] Name: KEAGAN ALICIA Rep #:[id number] : 2000 21 From: Kristofer Low MD PCP: Care Physician,No Primary Status :REG ER Location: ED HPI HPI - GI History of Present Illness Chief Complaint: Abd Pain Informant: patient Narrative Narrative: 21-year-old healthy patient who states she has known gallstones from an ultrasound that was obtained in early July at an outside facility because of similar pain that started again this morning at 4 AM along with vomiting, right upper quadrant pain radiating into her right mid upper back. [facility] because they do not have ultrasound all weekend, today is Friday. Patient states she is feeling better now that they gave her fentanyl and Zofran. She is 21 weeks , all miscarriages. She denies any lower abdominal pain, vaginal leakage orbleeding. No urinary symptoms. No fevers or chills. No jaundice or pruritus. No confusion or neurologic symptoms. Patient states last night before she went to bed she ate a hamburger. [facility] Medical History Depression Home Medications NK 08/21/18 [History Last Taken Unknown] Allergy/AdvReac Type Severity Reaction Status Date / Time No Known Allergies Allergy Verified 08/17/22 10:14 Social History Smoking Status: Never smoker ROS ROS ED Constitutional Constitutional ED: Denies chills or fever(s) Eyes Eyes: Denies change in vision or diplopia ENT ENT ED: Denies rhinorrhea or sore throat Cardiovascular Cardiovascular: Denies chest pain or palpitations Respiratory/Chest Respiratory/Chest: Denies cough or dyspnea Gastrointestinal Gastrointestinal: Reports abdominal pain, nausea and vomiting; Denies diarrhea Genitourinary Genitourinary ED: Denies dysuria or hematuria Musculoskeletal Musculoskeletal: Reports back pain; Denies neck pain Integumentary Denies abscess or rash Neurologic Neurologic: Denies headache(s), paresthesias or weakness Psychiatric Psychiatric: Denies anxiety or suicidal thoughts EXAM Physical Exam Const Vital Signs: 08/17/22 10:15 08/17/22 12:27 Temperature 97.1 F L Temperature Source Temporal Pulse Rate 74 Respiratory Rate 161 H 16 Blood Pressure 102/58 L Blood Pressure Mean 72 Pulse Ox 99 Oxygen Delivery Method Room Air Positive well nourished and well developed General Appearance ED: well developed and NAD HEENT Reports moist mucous membranes normocephalic and atraumatic Eyes PERRL and EOMs intact bilaterally Neck full ROM and supple Resp normal respiratory effort and clear to auscultation bilaterally Cardio regular rate, regular rhythm and no murmurs GI non-distended GI Narrative: Mildly tender right upper quadrant only, otherwise benign abdomen. Distended toabout the umbilicus consistent with second trimester . Auscultation: normoactive bowel sounds Palpation: soft Back/Spine no CVA tenderness General Back: other FROM Extremity normal to inspection General Extremety ED: Negative for edema, pulses abnormal or tenderness General Extremity: Negative for edema or pulses abnormal Neuro oriented x3, CN's II-XII intact bilaterally and no sensory deficits noted Sensorium / Orientation: awake and alert Motor Exam: strength 5/5 throughout Skin no rashes or lesions noted and no wounds MDM MDM MDM Narrative Medical decision making narrative: Records that were sent from the transferring facility were reviewed, but basically includes a problem list, outpatient medications most of which she states she is not on right now, and no labs. Patient confirms that they did blood work and place an IV where they gave her medications. Labs that we obtained appear very reassuring. She has no leukocytosis, no elevated liver enzymes, no hyperbilirubinemia, and her lipase is normal. On reevaluation she is feeling even better than she was before without the need forrepeat medications. She is in no pain right now. I obtained an ultrasound of the right upper quadrant, I reviewed the images and the report which I agree with, basically gallstones without any radiographic signs of acute cholecystitis. On reevaluation, she states she has an appointment with a surgeon in [place] as a result of her prior ultrasound for the of this month, that literally is 5 days away. Reassured, discharged, advised to avoid fatty foods and animal meats until she sees surgery and we discussed reasons to return she is comfortable with that plan. Lab Data Attestation: I reviewed the patient's lab results. Labs: Laboratory Results - last 24 hr 08/17/22 10:45 WBC 8.5 RBC 3.21 L Hgb 10.0 L Hct 30.4 L MCV 94.7 MCH 31.2 MCHC 32.9 RDW Std Deviation 47.7 H RDW Coeff of Lorna 13.8 Plt Count 137 L MPV 11.8 Immature Gran % (Auto) 0.400 Neut % (Auto) 76.2 H Lymph % (Auto) 15.6 L [place] % (Auto) 7.1 Eos % (Auto) 0.5 Baso % (Auto) 0.2 Absolute Neuts (auto) 6.5 Absolute Lymphs (auto) 1.32 Nucleated RBC % 0 Sodium 137 Potassium 4.0 Chloride 108 H Carbon Dioxide 24.0 Anion Gap 5 BUN 9 Creatinine 0.56 Est GFR (MDRD) Af Amer 176 Est GFR (MDRD) Non-Af 145 BUN/Creatinine Ratio 15.9 Glucose 79 Calcium 7.6 L Total Bilirubin 0.30 AST 46 H ALT 28 Alkaline Phosphatase 58 Total Protein 5.6 L Albumin 2.4 L Globulin 3.2 Albumin/Globulin Ratio 0.8 L Lipase 28 Radiography Diagnostic Testing: Clinical Impression(s) from Imaging Studies Gallbladder Ultrasound 08/17/22 10:39 IMPRESSION: Cholelithiasis with gallbladder distention but no gallbladder wall thickening. Mild hepatic steatosis. Electronically Signed: Leila Thompson MD at 11:53 EDT , Discharge Plan Triage Chief Complaint: Abd Pain ED Provider: Kristofer Low Dx/Rx/DC Orders Clinical Impression: Second trimester , Cholelithiasis, Biliary colic Instructions: ED Gallstones with Biliary Colic Prescriptions: No Action NK Primary Care Provider: Care Physician,No Primary Referrals: [facility],[place] Stefanie [Non-Staff] - Doctor,Your [Non-Staff] - Keep Mireya appointment (Surgeon that you have an appt with) Activity Restrictions/Additional Instructions: Avoid fatty foods including animal meats as much as you are able. What to do if you have Problems For any increased pain, shortness of breath, bleeding, nausea or vomiting, chestpain, or any unexpected problems, contact your Primary Care Provider. Call [employer] [facility] ([phone]) or report to the closest Emergency Room. Call 911 if necessary. 08/17/22 1322 <Electronically signed by Kristofer Low MD> Cosigner Signature (if applicable): CC: No Primary Care Physician ~ Signed [facility] Work Phone: 1(438) 337-301510-03-2022 Instructions* Patient Instructions* Leeann Ascencio APRN.CNP - 11/12/2021 7:26 PM EDT Will send urine culture and call with results, also available on my chart Will send vaginal cultures will call and treat based on results HIV screening ordered - present to lab -F [id number], Friday [id number] Will call with results. Follow up with POWER OPERATOR as needed documented in this encounterSelect [facility]-2022 History of Present illness Narrative* Leeann Ascencio APRN.CNP - 11/12/2021 7:14 PM EDT Subjective The history is provided by the patient. No foreign language interpreter was used. HPI Keagan Alicia is a 21 year old female who presents today for CC of burning with urination Positive for Dysuria and Vaginal itch or discharge, Negative for Increase in frequency of urination, Urgency, Sense of incomplete void, Fevers, Vomiting, Diarrhea, Abdominal pain , Back/Flank pain, and Blood in urine Denies any vulvar lesions or blisters. Chance of : No Last intercourse: past week Any self-treatment attempted: No Number of previous UTI's in last 6 months:0 Number of previous UTI's in last 12 months: 1 Aggravating Factors: voiding Alleviating Factors include none H/o exposure to HIV, desires to repeat HIV testing. BP 116/82 Pulse 87 Temp 37 C (98.6 F) Resp 18 Wt 54.3 kg (119 lb 12.8 oz) LMP 11/02/2021 (Exact Date) SpO2 100% No Social History Tobacco Use Smoking status: Never Passive exposure: Yes Smokeless tobacco: Never Tobacco comments: mom smokes outside Vaping Use Vaping Use: Never used Substance Use Topics Alcohol use: No Drug use: No PAST MEDICAL HISTORY Diagnosis Date Chronic tonsillitis Psychiatric disorder I have confirmed and edited as necessary, the [facility] Review of Systems Constitutional: Negative for chills and fever. Gastrointestinal: Negative for abdominal pain, diarrhea, nausea and vomiting. Genitourinary: Positive for dysuria. Negative for flank pain, frequency, hematuria and urgency. Objective Physical Exam Vitals and nursing note reviewed. Constitutional: Appearance: Normal appearance. Abdominal: General: Bowel sounds are normal. There is no abdominal bruit. Palpations: Abdomen is not rigid. There is no mass or pulsatile mass. Tenderness: There is no abdominal tenderness. There is no guarding or rebound. Negative signs include Maynard's sign and McBurney's sign. Neurological: Mental Status: She is alert and oriented to person, place, and time. Psychiatric: Mood and Affect: Affect normal. Declines exam will self swab ASSESSMENT/PLAN: 1. Burning with urination - ICD9: 788.1, ICD10: R30.0 (primary diagnosis) acute - UA positive for proteinuria - Send urine for culture - no treatment will await culture results - UA DIP, URINE (POC) - URINE CULTURE 2. Exposure to HIV - ICD9: V01.79, ICD10: Z20.6 Recheck - last drawn August 2021 it was negative then - HIV 1 2 COMBO(AG/AB),WITH REFLEX TO DIFFERENTIATION 3. Acute vaginitis - ICD9: 616.10, ICD10: N76.0 Swabs done will treat based on results Safe sex discussed - BACTERIAL VAGINOSIS AMPLIFICATION - ALMITA / TRICHOMONAS AMPLIFICATION Diagnosis and treatment plan were discussed and questions were answered to the patient's satisfaction. Pt acknowledged understanding of concepts and follow up plan. Specific signs and symptoms that would indicate the need for higher level of care were discussed indetail warranting prompt ER evaluation. Leeann Ascencio APRN.CNP [facility] History of Present illness Narrative* Steven Rojas APRN.CNP - 08/14/2021 12:02 PM EDT Subjective HPI Nontoxic-appearing female presents urgent care chief complaint STD testing. Patient states found out last week that her ex britney tested positive for HIV. States has been with her ex britney for the past year. They have had unprotected intercourse. Presents today for evaluation. States overall she feels fine. No concerns. No pain. No vaginal discharge. Denies chance of . Is not breast-feeding. States she was in a monogamous relationship with her partner. She has not been with any body buther ex fijaimee . States history of trichomonas in the past. No other STDs. Past medical history prescription medication use allergies reviewed. .Patient presents with: wants HIV testing: was told by ex that he tested positive for this PAST MEDICAL HISTORY Diagnosis Date Chronic tonsillitis Psychiatric disorder PAST SURGICAL HISTORY Procedure Laterality Date NONE TONSILLECTOMY HX ALLERGIES Patient has no known allergies. MEDICATIONS venlafaxine ER (EFFEXOR XR) 150 mg 24 hr capsule Take 150 mg by mouth once daily. cetirizine (ZYRTEC) 10 mg tablet Take 10 mg by mouth. docusate sodium (COLACE) 100 mg capsule Take 100 mg by mouth. ferrous sulfate 325 mg (65 mg iron) tablet Take 325 mg by mouth. metoclopramide HCl (REGLAN) 5 mg tablet Take 5 mg by mouth. omeprazole (PRILOSEC) 40 mg capsule Take 40 mg by mouth. fluconazole (DIFLUCAN) 150 mg tablet ibuprofen (MOTRIN) 600 mg tablet Take 1 tablet by mouth every 6 hours as needed for Pain or Fever. ondansetron (ZOFRAN) 4 mg tablet Take 1 tablet by mouth every 8 hours as needed for Nausea/Vomiting. FAMILY HISTORY Problem Relation Age of Onset Cervical Cancer Maternal Grandmother other (migraines) Mother None Father other (leukemia) Father pggf Social History Tobacco Use Smoking status: Passive Smoke Exposure - Never Smoker Smokeless tobacco: Never Used Tobacco comment: mom smokes outside Vaping Use Vaping Use: Never used Substance Use Topics Alcohol use: No Drug use: No BP 102/72 Pulse 80 Temp 36.8 C (98.3 F) (Tympanic) Resp 18 Wt 49.9 kg (110 lb) LMP 05/01/2020 SpO2 99% Review of Systems Constitutional: Negative for chills, fever and malaise/fatigue. HENT: Negative for congestion, ear discharge, ear pain, sinus pain and sore throat. Eyes: Negative for blurred vision, pain, discharge and redness. Respiratory: Negative for cough, hemoptysis, sputum production, shortness of breath, wheezing and stridor. Cardiovascular: Negative for chest pain. Gastrointestinal: Negative for abdominal pain, diarrhea, nausea and vomiting. Genitourinary: Negative. Musculoskeletal: Negative for myalgias. Skin: Negative for itching and rash. Neurological: Negative for dizziness and headaches. Objective Physical Exam Constitutional: General: She is not in acute distress. Appearance: She is not diaphoretic. HENT: Head: Normocephalic. Mouth/Throat: Mouth: Mucous membranes are moist. Pharynx: Oropharynx is clear. No oropharyngeal exudate or posterior oropharyngeal erythema. Eyes: Conjunctiva/sclera: Conjunctivae normal. Pupils: Pupils are equal, round, and reactive to light. Cardiovascular: Rate and Rhythm: Normal rate and regular rhythm. Heart sounds: Normal heart sounds. Pulmonary: Effort: Pulmonary effort is normal. No tachypnea, accessory muscle usage or respiratory distress. Breath sounds: Normal breath sounds. No stridor. Abdominal: Palpations: Abdomen is soft. Tenderness: There is no abdominal tenderness. Musculoskeletal: Cervical back: Normal range of motion and neck supple. No rigidity or tenderness. Lymphadenopathy: Cervical: No cervical adenopathy. Skin: General: Skin is warm and dry. Neurological: Mental Status: She is alert and oriented to person, place, and time. ASSESSMENT/PLAN: 1. Screening for STD (sexually transmitted disease) - ICD9: V74.5, ICD10: Z11.3 - UA DIP, URINE (POC) - HCG QUAL UR B/O - GC/CHLAMYDIA DNA DET - ALMITA / TRICHOMONAS AMPLIFICATION - HIV 1 2 COMBO(AG/AB),WITH REFLEX TO DIFFERENTIATION - HEP REMOTE PANEL BL - HEP C AB IA W/CONF SCRN - SYPHILIS TOTAL W/REFLEX Urine dip negative in office. Urine test negative. Vaginal self swabs obtained. STD bloodpanel obtained. If positive patient will follow up with infectious disease. Patient was educated onsupportive therapies. Patient will follow up with primary care provider as needed. Patient was instructed to immediately proceed to emergency room for any new, worsening, or symptoms lasting longer than anticipated. The patient's clinical presentation is otherwise unremarkable at this time. Based on exam and clinical finding, the patient is stable for discharge. Plan of care was discussed with patient. Patient verbalizes understanding and agrees to plan of care. This note was generated using [employer] software. It may contain errors in wording, punctuation, or spelling. Steven Rojas APRN.ULISSES documented in [facility] encounter[facility] [place] History of Past illness Narrative* Problem Noted Date Diagnosed Date Resolved Date labor without delive ry, third trimester 07/01/2017 01/30/2023 Anemia complicating pregnanc y, third trimester 06/03/2017 01/30/2023 Vertex presentation of fetus in third trimester 05/01/2017 01/30/2023 33 weeks gestation of 02/27/2017 01/30/2023 Encounter for supervision of normal first in third trimester 02/27/2017 01/30/2023 Rh negative state in antepartum period 01/16/2017 01/30/2023 documented as of this encounter (statuses as of 01/31/2023) [facility] [place] History of Past illness Narrative* Problem Noted Date Diagnosed Date Resolved Date labor without delive ry, third trimester 07/01/2017 01/30/2023 Anemia complicating pregnanc y, third trimester 06/03/2017 01/30/2023 Vertex presentation of fetus in third trimester 05/01/2017 01/30/2023 33 weeks gestation of 02/27/2017 01/30/2023 Encounter for supervision of normal first in third trimester 02/27/2017 01/30/2023 Rh negative state in antepartum period 01/16/2017 01/30/2023 documented as of this encounter (statuses as of 03/17/2023) [facility] [place] History of Past illness Narrative* Problem Noted Date Diagnosed Date Resolved Date labor without delive ry, third trimester 07/01/2017 01/30/2023 Anemia complicating pregnanc y, third trimester 06/03/2017 01/30/2023 Vertex presentation of fetus in third trimester 05/01/2017 01/30/2023 33 weeks gestation of 02/27/2017 01/30/2023 Encounter for supervision of normal first in third trimester 02/27/2017 01/30/2023 Rh negative state in antepartum period 01/16/2017 01/30/2023 documented as of this encounter (statuses as of 04/24/2023) [facility] [place] History of Past illness Narrative* Problem Noted Date Diagnosed Date Resolved Date labor without delive ry, third trimester 07/01/2017 01/30/2023 Anemia complicating pregnanc y, third trimester 06/03/2017 01/30/2023 Vertex presentation of fetus in third trimester 05/01/2017 01/30/2023 33 weeks gestation of 02/27/2017 01/30/2023 Encounter for supervision of normal first in third trimester 02/27/2017 01/30/2023 Rh negative state in antepartum period 01/16/2017 01/30/2023 documented as of this encounter (statuses as of 05/13/2023) [facility] noteNo assessment information availableWUniversity [facility] Work Phone: Evaluation note* Diagnosis Screening for STD (sexually transmitted disease)- Primary Screening examination for venereal disease documented [facility] this [facility] [place] [facility]* Diagnosis Burning with urination- Primary Dysuria Exposure to HIV Contact with or exposure to other viral diseases Acute vaginitis Vaginitis and vulvovaginitis, unspecified documented in this encounter [facility] [place] [facility]* Diagnosis care, subsequent in third trimester- Primary 34 weeks gestation of state, incidental documented [facility] this encounter [facility] [place] [facility]* Diagnosis with care elsewhere in third trimester- Primary 34 weeks gestation of state, incidental documented [facility] this encounter [facility] [place] [facility]* Diagnosis Encounter for supervision of normal first in third trimester- Primary Supervision of normal first 36 weeks gestation of state, incidental documented [facility] this encounter [facility] [place] [facility]* Diagnosis Routine follow-up- Primary care and examination Routine follow-up documented in this [facility] [place] [facility]* Diagnosis Spotting- Primary Other specified noninflammatory disorder of vagina Breakthrough bleeding on depo provera Metrorrhagia Episode of recurrent major depressive disorder, unspecified depression episode severity (HCC) Anxiety Anxiety state, unspecified PTSD (post-traumatic stress disorder) Posttraumatic stress disorder Post depression Mental disorders of mother, documented in this encounter [facility] [place] [facility]* Diagnosis Panic disorder without agoraphobia- Primary Episode of recurrent major depressive disorder, unspecified depression episode severity (HCC) Anxiety Anxiety state, unspecified PTSD (post-traumatic stress disorder) Posttraumatic stress disorder Post depression Mental disorders of mother, documented [facility]* Diagnosis Symptomatic cholelithiasis- Primary Symptomatic cholelithiasis- Primary documented in this encounter [facility] Work Phone: Evaluation note* Diagnosis Pain in the coccyx- Primary Other disorder of coccyx Tailbone injury, initial encounter Depression, unspecified depression type Generalized anxiety disorder documented in this encounter [facility] [place] [facility]* Diagnosis Post depression- Primary Mental disorders of mother, Panic disorder without agoraphobia PTSD (post-traumatic stress disorder) Posttraumatic stress disorder documented [facility] this [facility] [place] [facility]* Diagnosis Symptomatic cholelithiasis- Primary Post-operative pain Other acute postoperative pain Post-operative pain Other acute postoperative pain Anxiety Anxiety state, unspecified PTSD (post-traumatic stress disorder) Posttraumatic stress disorder Depression Depressive disorder, not elsewhere classified documented in this encounter [facility] Work Phone: Evaluation note* Diagnosis Postoperative pain- Primary Other acute postoperative pain documented in this encounter [facility] Work Phone: [phone] note* Diagnosis Acute post-operative pain- Primary Acute post-operative pain Status post cholecystectomy Other acquired absence of organ Vomiting and diarrhea documented in this encounter [facility] Work Phone: [phone] note* Diagnosis Single subsegmental pulmonary embolism without acute cor pulmonale (Multi)- Primary documented in this encounter [facility] Work Phone: [phone] note* Diagnosis Dysfunctional uterine bleeding- Primary Other disorder of menstruation and other abnormal bleeding from female genital tract Post-op pain Other acute postoperative pain documented in this encounter [facility] Work Phone: [phone] note* Diagnosis Palpitations- Primary Single subsegmental pulmonary embolism without acute cor pulmonale (Multi) Smoking addiction documented in this encounter [facility] Work Phone: [phone] note* Diagnosis Abnormal uterine bleeding (AUB)- Primary Encounter for IUD insertion Encounter for insertion of intrauterine contraceptive device [facility]* Diagnosis Nausea and vomiting, unspecified vomiting type- Primary S/P cholecystectomy Other acquired absence of organ Single subsegmental pulmonary embolism without acute cor pulmonale (HCC) Vapes nicotine containing substance [facility]* Diagnosis Single subsegmental pulmonary embolism without acute cor pulmonale (Multi) documented in this encounter [facility] Work Phone: [phone] note* Diagnosis Postoperative visit- Primary documented in this encounter [facility] Work Phone: [phone] note* Diagnosis Single subsegmental pulmonary embolism without acute cor pulmonale (Multi) Other pulmonary embolism without acute cor pulmonale (Multi) documented in this encounter [facility] Work Phone: [phone] note* Diagnosis Palpitations documented in this encounter [facility] Work Phone: [phone] note* Diagnosis Panic disorder without agoraphobia- Primary anxiety Mental disorders of mother, documented [facility]* Diagnosis Vaping nicotine dependence, non-tobacco product- Primary [facility] [place] [facility]* Diagnosis Surveillance of previously prescribed intrauterine contraceptive device- Primary documented [facility] [place] [facility]* Diagnosis Paroxysmal SVT (supraventricular tachycardia) (HCC)- Primary Paroxysmal supraventricular tachycardia Palpitations Single subsegmental pulmonary embolism without acute cor pulmonale (HCC) On continuous oral anticoagulation Long-term (current) use of anticoagulants Engages in vaping [facility] [place] [facility]* Diagnosis Panic disorder without agoraphobia documented [facility] this [facility] [place] [facility]* Diagnosis Pelvic pain in female- Primary Unspecified symptom associated with female genital organs Intrauterine contraceptive device threads lost, initial encounter Irregular bleeding Irregular menstrual cycle documented in this encounter [facility] [place]* Diagnosis Paroxysmal SVT (supraventricular tachycardia) (HCC) Paroxysmal supraventricular tachycardia Palpitations documented in this encounter [facility]* Diagnosis Encounter for IUD removal- Primary Encounter for removal of intrauterine contraceptive device Malpositioned intrauterine device (IUD), initial encounter documented in this encounter [facility] [place] [facility]* Diagnosis Pelvic pain in female Unspecified symptom associated with female genital organs Intrauterine contraceptive device threads lost, initial encounter Irregular bleeding Irregular menstrual cycle documented [facility] this [facility] [place] [facility]* Diagnosis Pelvic pain in female- Primary Unspecified symptom associated with female genital organs Malpositioned IUD, sequela [facility] [place] [facility]* Diagnosis Malpositioned IUD, sequela Pelvic pain in female Unspecified symptom associated with female genital organs [facility] [place] [facility]* Diagnosis Paroxysmal SVT (supraventricular tachycardia) (HCC) Paroxysmal supraventricular tachycardia Palpitations documented in this [facility] [place] [facility]* Diagnosis Malpositioned intrauterine device (IUD), sequela- Primary Malpositioned intrauterine device (IUD), sequela documented [facility] this [facility] [place] [facility]* Diagnosis Preoperative examination- Primary Preoperative examination, unspecified Single subsegmental pulmonary embolism without acute cor pulmonale (HCC) Vapes nicotine containing substance Marijuana use Cannabis abuse, unspecified Generalized anxiety disorder Depression, unspecified depression type Paroxysmal SVT (supraventricular tachycardia) (HCC) Paroxysmal supraventricular tachycardia Malpositioned intrauterine device (IUD), sequela * Assessment & Plan Note - Joyce Mishra PA-C - 09/01/2023 9:58 AM EDTAssociated Problem(s): Paroxysmal SVT (supraventricular tachycardia) (HCC) Assessment: Noted on Holter 07/2023. Pt takes metoprolol PRN. Pt reports episodes of pSVT daily to every other day. Following with EP at , Dr. Hugo. Pt is scheduled for ablation 10/03/23. RRR on examtoday. * Assessment & Plan Note - Joyce Mishra PA-C - 09/01/2023 9:55 AM EDTAssociated Problem(s): Depression Assessment: Stable, on RX. Follows with psych. * Assessment & Plan Note - Joyce Mishra PA-C - 09/01/2023 9:55 AM EDTAssociated Problem(s): Generalized anxiety disorder Assessment: Stable, on RX. Follows with psych. * Assessment & Plan Note - Joyce Mishra PA-C - 09/01/2023 9:53 AM EDTAssociated Problem(s): Marijuana use Assessment: Smokes MJ 2x per week. Patient instructed to refrain from marijuana use for 1 week prior to surgery. Patient verbalized understanding. * Assessment & Plan Note - Joyce Mishra PA-C - 09/01/2023 9:53 AM EDTAssociated Problem(s): Vapes nicotine containing substance Assessment: Daily. Advised pt no vaping DOS. * Assessment & Plan Note - Joyce Mishra PA-C - 09/01/2023 9:53 AM EDTAssociated Problem(s): Pulmonary embolism (HCC) Assessment: 06/21/23, post-op following lap bird. On Eliquis BID. Pt was evaluated by hem/onc Dr. Jaramillo 07/02/23 at , plan for Eliquis x 3 months then monitor and hypercoag testing. Advised pt that typically patients are to remain on AC uninterrupted for at least 3 months following VTE, upcoming surgery is 09/15/23. Pt said that she has upcoming appt with outside cardiology at Dr. Fernando Noriega on 09/03/23, and this is who is managing her Eliquis. Advised pt to discuss pre-op instructions for Eliquis with Dr. Fernando Noriega on 09/03/23. Pt verbalized understanding. [facility] Malpositioned intrauterine device (IUD), sequela- Primary Pre-op exam Preoperative examination, unspecified Malpositioned intrauterine device (IUD), sequela [facility] Diagnosis Post-op pain- Primary Other acute postoperative pain [facility]* Diagnosis Post-op pain- Primary Other acute postoperative pain Constipation, unspecified constipation type Excessive bleeding in premenopausal period Premenopausal menorrhagia [facility]* Diagnosis Post-operative state- Primary Other postprocedural status Functional diarrhea [facility]* Diagnosis Preoperative examination- Primary Preoperative examination, unspecified Single subsegmental pulmonary embolism without acute cor pulmonale (HCC) Vapes nicotine containing substance Marijuana use Cannabis abuse, unspecified Generalized anxiety disorder Depression, unspecified depression type Paroxysmal SVT (supraventricular tachycardia) (HCC) Paroxysmal supraventricular tachycardia Status post laparoscopic cholecystectomy- Primary Other postprocedural status Functional diarrhea [facility] Diagnosis Preoperative examination- Primary Preoperative examination, unspecified Single subsegmental pulmonary embolism without acute cor pulmonale (HCC) Vapes nicotine containing substance Marijuana use Cannabis abuse, unspecified Generalized anxiety disorder Depression, unspecified depression type Paroxysmal SVT (supraventricular tachycardia) (HCC) Paroxysmal supraventricular tachycardia Diarrhea due to malabsorption- Primary Personal history of other diseases of digestive system Status post laparoscopic cholecystectomy Other postprocedural status [facility] Diagnosis Preoperative examination- Primary Preoperative examination, unspecified Single subsegmental pulmonary embolism without acute cor pulmonale (HCC) Vapes nicotine containing substance Marijuana use Cannabis abuse, unspecified Generalized anxiety disorder Depression, unspecified depression type Paroxysmal SVT (supraventricular tachycardia) (HCC) Paroxysmal supraventricular tachycardia Vaginal discharge- Primary Leukorrhea, not specified as infective [facility]* Diagnosis Single subsegmental pulmonary embolism without acute cor pulmonale- Primary SVT (supraventricular tachycardia) ([facility]) Other specified cardiac dysrhythmias documented in this encounter [facility] Work Phone: Evaluation note* Diagnosis Preoperative examination- Primary Preoperative examination, unspecified Single subsegmental pulmonary embolism without acute cor pulmonale (HCC) Vapes nicotine containing substance Marijuana use Cannabis abuse, unspecified Generalized anxiety disorder Depression, unspecified depression type Paroxysmal SVT (supraventricular tachycardia) (HCC) Paroxysmal supraventricular tachycardia Well adult exam- Primary Routine general medical examination at a health care facility Paroxysmal SVT (supraventricular tachycardia) (HCC) Paroxysmal supraventricular tachycardia Palpitations documented [facility] [place] [facility]* Diagnosis Pulmonary embolism (Multi)- Primary Other pulmonary embolism and infarction SVT (supraventricular tachycardia) (CMS-HCC) Other specified cardiac dysrhythmias Palpitations SVT (supraventricular tachycardia) (CMS-HCC)- Primary Other specified cardiac dysrhythmias SVT (supraventricular tachycardia) (CMS-HCC) Other specified cardiac dysrhythmias documented in this encounter [facility] Work Phone: Evaluation note* Diagnosis SVT (supraventricular tachycardia) (CMS-HCC)- Primary Other specified cardiac dysrhythmias SVT (supraventricular tachycardia) (CMS-HCC) Other specified cardiac dysrhythmias Palpitations SVT (supraventricular tachycardia) ([facility]-HCC) Other specified cardiac dysrhythmias documented in this encounter [facility] Work Phone: Evaluation note* Diagnosis SVT (supraventricular tachycardia) ([facility])- Primary Other specified cardiac dysrhythmias Atrial fibrillation, unspecified type (Multi) Palpitations documented in this encounter [facility] Work Phone: Evaluation note* Diagnosis Urinary tract infection in mother during first trimester of ([facility])- Primary Hypoglycemia Hypoglycemia, unspecified Nausea vomiting and diarrhea documented in this encounter [facility] Work Phone: Evaluation note* Diagnosis Preoperative examination- Primary Preoperative examination, unspecified Single subsegmental pulmonary embolism without acute cor pulmonale (HCC) Vapes nicotine containing substance Marijuana use Cannabis abuse, unspecified Generalized anxiety disorder Depression, unspecified depression type Paroxysmal SVT (supraventricular tachycardia) (HCC) Paroxysmal supraventricular tachycardia with uncertain dates, antepartum- Primary state, incidental Screening for cervical cancer Screening for malignant neoplasm of the cervix Screening for human papillomavirus (HPV) Special screening examination for human papillomavirus (HPV) Screening for STDs (sexually transmitted diseases) Screening examination for venereal disease Depression, unspecified depression type History of pulmonary embolism Personal history of pulmonary embolism Supervision of other high risk pregnancies, first trimester History of shoulder dystocia in prior History of depression [facility] [place] [facility]* Diagnosis Preoperative examination- Primary Preoperative examination, unspecified Single subsegmental pulmonary embolism without acute cor pulmonale (HCC) Vapes nicotine containing substance Marijuana use Cannabis abuse, unspecified Generalized anxiety disorder Depression, unspecified depression type Paroxysmal SVT (supraventricular tachycardia) (HCC) Paroxysmal supraventricular tachycardia Supervision of other high risk pregnancies, first trimester- Primary History of pulmonary embolism Personal history of pulmonary embolism Nausea and vomiting in Unspecified vomiting of , unspecified as to episode of care [facility] [place] [facility]* Diagnosis Preoperative examination- Primary Preoperative examination, unspecified Single subsegmental pulmonary embolism without acute cor pulmonale (HCC) Vapes nicotine containing substance Marijuana use Cannabis abuse, unspecified Generalized anxiety disorder Depression, unspecified depression type Paroxysmal SVT (supraventricular tachycardia) (HCC) Paroxysmal supraventricular tachycardia Encounter for screening for malformation using ultrasound- Primary 13 weeks gestation of state, incidental [facility] [place] [facility]* Diagnosis Preoperative examination- Primary Preoperative examination, unspecified Single subsegmental pulmonary embolism without acute cor pulmonale (HCC) Vapes nicotine containing substance Marijuana use Cannabis abuse, unspecified Generalized anxiety disorder Depression, unspecified depression type Paroxysmal SVT (supraventricular tachycardia) (HCC) Paroxysmal supraventricular tachycardia Supervision of other high risk pregnancies, second trimester- Primary 13 weeks gestation of state, incidental Nausea and vomiting in Unspecified vomiting of , unspecified as to episode of care History of cardiac radiofrequency ablation History of pulmonary embolism Personal history of pulmonary embolism History of shoulder dystocia in prior History of depression Personal history of other mental disorder Rh negative state in antepartum period Rhesus isoimmunization affecting management of mother, antepartum condition [facility] [place] [facility]* Diagnosis Preoperative examination- Primary Preoperative examination, unspecified Single subsegmental pulmonary embolism without acute cor pulmonale (HCC) Vapes nicotine containing substance Marijuana use Cannabis abuse, unspecified Generalized anxiety disorder Depression, unspecified depression type Paroxysmal SVT (supraventricular tachycardia) (HCC) Paroxysmal supraventricular tachycardia Supervision of other high risk pregnancies, second trimester- Primary 16 weeks gestation of state, incidental Nausea and vomiting in Unspecified vomiting of , unspecified as to episode of care History of cardiac radiofrequency ablation History of pulmonary embolism Personal history of pulmonary embolism History of shoulder dystocia in prior Depression, unspecified depression type Rh negative state in antepartum period Rhesus isoimmunization affecting management of mother, antepartum condition [facility] [place] [facility]* Diagnosis Preoperative examination- Primary Preoperative examination, unspecified Single subsegmental pulmonary embolism without acute cor pulmonale ([facility]) Vapes nicotine containing substance Marijuana use Cannabis abuse, unspecified Generalized anxiety disorder Depression, unspecified depression type Paroxysmal SVT (supraventricular tachycardia) (HCC) Paroxysmal supraventricular tachycardia Encounter for anatomic survey ([facility])- Primary Encounter for anatomic survey 20 weeks gestation of ([facility]) state, incidental documented [facility] [place] [facility]* Diagnosis Preoperative examination- Primary Preoperative examination, unspecified Single subsegmental pulmonary embolism without acute cor pulmonale (HCC) Vapes nicotine containing substance Marijuana use Cannabis abuse, unspecified Generalized anxiety disorder Depression, unspecified depression type Paroxysmal SVT (supraventricular tachycardia) (HCC) Paroxysmal supraventricular tachycardia Supervision of other high risk pregnancies, second trimester ([facility])- Primary 20 weeks gestation of ([facility]) state, incidental History of shoulder dystocia in prior Rh negative state in antepartum period ([facility]) Rhesus isoimmunization affecting management of mother, antepartum condition [facility] Diagnosis Preoperative examination- Primary Preoperative examination, unspecified Single subsegmental pulmonary embolism without acute cor pulmonale ([facility]) Vapes nicotine containing substance Marijuana use Cannabis abuse, unspecified Generalized anxiety disorder Depression, unspecified depression type Paroxysmal SVT (supraventricular tachycardia) ([facility]) Paroxysmal supraventricular tachycardia Supervision of other high risk pregnancies, second trimester ([facility])- Primary 28 weeks gestation of ([facility]) state, incidental Rh negative state in antepartum period ([facility]) Rhesus isoimmunization affecting management of mother, antepartum condition Need for vaccination Need for prophylactic vaccination and inoculation against unspecified single disease Encounter for sterilization Sterilization History of shoulder dystocia in prior Heartburn during , antepartum, third trimester ([facility]) * Assessment & Plan Note - Yamila Ballard MD - 07/27/2024 2:03 PM EDT Associated Problem(s): Rh negative state in antepartum period ([facility]) rh prohylaxis * Assessment & Plan Note - Yamila Ballard MD - 07/27/2024 2:03 PM EDT Associated Problem(s): Encounter for sterilization Risks, benefits and alternatives to sterilization have been discussed with the patient. She declines reversible options including LARC. She understands sterilization is permanent, irreversible, risksof failure, regret and ectopic. In addition she understands there are surgical risks as well. Her questions were answered to her satisfaction and consent was signed * Assessment & Plan Note - Yamila Ballard MD - 07/27/2024 2:03 PM EDT Associated Problem(s): History of shoulder dystocia in prior d/w her r/b/ a to c/s vs vaginal delivery, plans c/s unless EFW signif less than last delivery * Assessment & Plan Note - Yamila Ballard MD - 07/27/2024 2:03 PM EDT Associated Problem(s): Heartburn during , antepartum, third trimester ([facility]) d/c pepcid, trial prevacid documented in this encounter [facility] note* Diagnosis SVT (supraventricular tachycardia) Other specified cardiac dysrhythmias documented in this encounter [facility] Work Phone: Evaluation note* Diagnosis Preoperative examination- Primary Preoperative examination, unspecified Single subsegmental pulmonary embolism without acute cor pulmonale ([facility]) Vapes nicotine containing substance Marijuana use Cannabis abuse, unspecified Generalized anxiety disorder Depression, unspecified depression type Paroxysmal SVT (supraventricular tachycardia) (HCC) Paroxysmal supraventricular tachycardia Supervision of other high risk pregnancies, second trimester (HCC)- Primary 28 weeks gestation of ([facility]) state, incidental Rh negative state in antepartum period (HCC) Rhesus isoimmunization affecting management of mother, antepartum condition Need for vaccination Need for prophylactic vaccination and inoculation against unspecified single disease Encounter for sterilization Sterilization History of shoulder dystocia in prior Heartburn during , antepartum, third trimester (HCC) Maternal iron deficiency anemia complicating , third trimester ([facility])- Primary documented in this encounter [facility] note* Diagnosis Preoperative examination- Primary Preoperative examination, unspecified Single subsegmental pulmonary embolism without acute cor pulmonale (HCC) Vapes nicotine containing substance Marijuana use Cannabis abuse, unspecified Generalized anxiety disorder Depression, unspecified depression type Paroxysmal SVT (supraventricular tachycardia) (HCC) Paroxysmal supraventricular tachycardia Supervision of other high risk pregnancies, second trimester (HCC)- Primary 28 weeks gestation of (HCC) state, incidental Rh negative state in antepartum period (HCC) Rhesus isoimmunization affecting management of mother, antepartum condition Need for vaccination Need for prophylactic vaccination and inoculation against unspecified single disease Encounter for sterilization Sterilization History of shoulder dystocia in prior Heartburn during , antepartum, third trimester (HCC) Supervision of high risk in third trimester ([facility])- Primary Unspecified high-risk Thrombocytopenia affecting (HCC) Antepartum anemia complicating in third trimester (HCC) History of shoulder dystocia in prior Paroxysmal SVT (supraventricular tachycardia) (HCC) Paroxysmal supraventricular tachycardia * Assessment & Plan Note - Prabhu Ortez MD - 08/10/2024 11:33 AM EDTAssociated Problem(s): Paroxysmal SVT (supraventricular tachycardia) ([facility]) On metoprolol * Assessment & Plan Note - Prabhu Ortez MD - 08/10/2024 11:32 AM EDTAssociated Problem(s): Thrombocytopenia affecting ([facility]) Repeat CBC in 3 weeks * Assessment & Plan Note - Prabhu Ortez MD - 08/10/2024 11:32 AM EDTAssociated Problem(s): Antepartum anemia complicating in third trimester ([facility]) IV iron scheduled * Assessment & Plan Note - Prabhu Ortez MD - 08/10/2024 11:32 AM EDTAssociated Problem(s): History of shoulder dystocia in prior Plans unless EFW less than prior . [facility]* Diagnosis Preoperative examination- Primary Preoperative examination, unspecified Single subsegmental pulmonary embolism without acute cor pulmonale ([facility]) Vapes nicotine containing substance Marijuana use Cannabis abuse, unspecified Generalized anxiety disorder Depression, unspecified depression type Paroxysmal SVT (supraventricular tachycardia) (HCC) Paroxysmal supraventricular tachycardia Supervision of other high risk pregnancies, second trimester (HCC)- Primary 28 weeks gestation of ([facility]) state, incidental Rh negative state in antepartum period ([facility]) Rhesus isoimmunization affecting management of mother, antepartum condition Need for vaccination Need for prophylactic vaccination and inoculation against unspecified single disease Encounter for sterilization Sterilization History of shoulder dystocia in prior Heartburn during , antepartum, third trimester ([facility]) Supervision of high risk in third trimester ([facility])- Primary Unspecified high-risk Thrombocytopenia affecting ([facility]) Antepartum anemia complicating in third trimester ([facility]) History of shoulder dystocia in prior Paroxysmal SVT (supraventricular tachycardia) (HCC) Paroxysmal supraventricular tachycardia Maternal iron deficiency anemia complicating , third trimester ([facility])- Primary documented in this encounter [facility] note* Diagnosis Preoperative examination- Primary Preoperative examination, unspecified Single subsegmental pulmonary embolism without acute cor pulmonale ([facility]) Vapes nicotine containing substance Marijuana use Cannabis abuse, unspecified Generalized anxiety disorder Depression, unspecified depression type Paroxysmal SVT (supraventricular tachycardia) ([facility]) Paroxysmal supraventricular tachycardia Supervision of other high risk pregnancies, second trimester ([facility])- Primary 28 weeks gestation of ([facility]) state, incidental Rh negative state in antepartum period ([facility]) Rhesus isoimmunization affecting management of mother, antepartum condition Need for vaccination Need for prophylactic vaccination and inoculation against unspecified single disease Encounter for sterilization Sterilization History of shoulder dystocia in prior Heartburn during , antepartum, third trimester ([facility]) Supervision of high risk in third trimester ([facility])- Primary Unspecified high-risk Thrombocytopenia affecting ([facility]) Antepartum anemia complicating in third trimester ([facility]) History of shoulder dystocia in prior Paroxysmal SVT (supraventricular tachycardia) ([facility]) Paroxysmal supraventricular tachycardia Maternal iron deficiency anemia complicating , third trimester ([facility])- Primary [facility] [place] [facility]* Diagnosis Preoperative examination- Primary Preoperative examination, unspecified Single subsegmental pulmonary embolism without acute cor pulmonale ([facility]) Vapes nicotine containing substance Marijuana use Cannabis abuse, unspecified Generalized anxiety disorder Depression, unspecified depression type Paroxysmal SVT (supraventricular tachycardia) ([facility]) Paroxysmal supraventricular tachycardia Supervision of other high risk pregnancies, second trimester ([facility])- Primary 28 weeks gestation of ([facility]) state, incidental Rh negative state in antepartum period ([facility]) Rhesus isoimmunization affecting management of mother, antepartum condition Need for vaccination Need for prophylactic vaccination and inoculation against unspecified single disease Encounter for sterilization Sterilization History of shoulder dystocia in prior Heartburn during , antepartum, third trimester (HCC) Supervision of high risk in third trimester ([facility])- Primary Unspecified high-risk Thrombocytopenia affecting (HCC) Antepartum anemia complicating in third trimester (HCC) History of shoulder dystocia in prior Paroxysmal SVT (supraventricular tachycardia) (HCC) Paroxysmal supraventricular tachycardia Supervision of high risk in third trimester ([facility])- Primary Unspecified high-risk Thrombocytopenia affecting ([facility]) History of shoulder dystocia in prior Antepartum anemia complicating in third trimester (HCC) Paroxysmal SVT (supraventricular tachycardia) (HCC) Paroxysmal supraventricular tachycardia 32 weeks gestation of (HCC) state, incidental * Assessment & Plan Note - Prabhu Ortez MD - 08/24/2024 10:56 AM EDTAssociated Problem(s): Thrombocytopenia affecting ([facility]) Repeat CBC scheduled * Assessment & Plan Note - Prabhu Ortez MD - 08/24/2024 10:56 AM EDTAssociated Problem(s): History of shoulder dystocia in prior Plans * Assessment & Plan Note - Prabhu Ortez MD - 08/24/2024 10:56 AM EDTAssociated Problem(s): Antepartum anemia complicating in third trimester ([facility]) Last IV iron infusion today * Assessment & Plan Note - Prabhu Ortez MD - 08/24/2024 10:56 AM EDTAssociated Problem(s): Paroxysmal SVT (supraventricular tachycardia) ([facility]) Continue metoprolol [facility] Diagnosis Preoperative examination- Primary Preoperative examination, unspecified Single subsegmental pulmonary embolism without acute cor pulmonale ([facility]) Vapes nicotine containing substance Marijuana use Cannabis abuse, unspecified Generalized anxiety disorder Depression, unspecified depression type Paroxysmal SVT (supraventricular tachycardia) ([facility]) Paroxysmal supraventricular tachycardia Supervision of other high risk pregnancies, second trimester ([facility])- Primary 28 weeks gestation of ([facility]) state, incidental Rh negative state in antepartum period ([facility]) Rhesus isoimmunization affecting management of mother, antepartum condition Need for vaccination Need for prophylactic vaccination and inoculation against unspecified single disease Encounter for sterilization Sterilization History of shoulder dystocia in prior Heartburn during , antepartum, third trimester ([facility]) Supervision of high risk in third trimester ([facility])- Primary Unspecified high-risk Thrombocytopenia affecting ([facility]) Antepartum anemia complicating in third trimester ([facility]) History of shoulder dystocia in prior Paroxysmal SVT (supraventricular tachycardia) ([facility]) Paroxysmal supraventricular tachycardia Supervision of high risk in third trimester ([facility])- Primary Unspecified high-risk Thrombocytopenia affecting ([facility]) History of shoulder dystocia in prior Antepartum anemia complicating in third trimester ([facility]) Paroxysmal SVT (supraventricular tachycardia) ([facility]) Paroxysmal supraventricular tachycardia 32 weeks gestation of ([facility]) state, incidental Maternal iron deficiency anemia complicating , third trimester ([facility])- Primary [facility] Additional Instructions Avoid fatty foods including animal meats as much as you are able.[facility] Work Phone: Hospital Discharge instructions* Attachments The following attachments cannot be sent through Care Everywhere. * Managing pain after surgery ([place]) [facility]* Attachments The following attachments cannot be sent through Care Everywhere. * Managing acute pain at home ([place]) [facility] Discharge instructions* Attachments The following attachments cannot be sent through Care Everywhere. * Pulmonary Embolism (Blood Clot in the Lungs) Discharge Instructions ([place]) [facility]: Hospital Discharge instructions* Attachments The following attachments cannot be sent through Care Everywhere. * Heavy periods ([place]) [facility]: Hospital Discharge instructions* Attachments The following attachments cannot be sent through Care Everywhere. * Low Blood Sugar, Adult ED ([place]an) * Nausea and Vomiting, Adult ED ([place]) * Urinary tract infections in ([place]) [facility] Work [facility]: Reason for referral (narrative)* Outpatient Procedure (Routine) - Authorized Specialty Diagnoses / Procedures Referred By Tone musa Referred To Contact [facility] Diagnoses Abnormal uterine bleeding (AUB) Encounter for removal of intrauterine contraceptive device Encounter for insertion of intrauterine contraceptive device Procedures INSERT INTRAUTERINE DEVICE LEVONORGESTREL IU 52MG 5 YR INSERT INTRAUTERINE DEVICE REMOVE INTRAUTERINE DEVICE Prabhu Ortez MD [address] [place] [address] [facility] [address] [place] [address] Referral ID Status Reason Start Date Expiration Date Visits Requested Visits Authorized [id number] Authorized Auto-Generat ed Referral 06/26/2023 02/10/2024 2 [facility] Diagnostic Procedure Only (Routine) - Authorized Specialty Diagnoses / Procedures Referred By Tone musa Referred To Contact [facility] Diagnoses Pelvic pain in female Intrauterine contraceptive device threads lost, initial encounter Irregular bleeding Procedures PELVIC US WHI US PELVIC NONOBSTETRIC REAL-TIME IMAGE COMPLETE Sandra Cole APRN.CNP [address] [place] [address] [facility] [address] [address] Referral ID Status Reason Start Date Expiration Date Visits Requested Visits Authorized [id number] Authorized Auto-Generat ed Referral 08/18/2023 08/17/2024 1 1 [facility] Diagnostic Procedure Only (Routine) - Closed Specialty Diagnoses / Procedures Referred By Tone musa Referred To Contact XR IMAGING Diagnoses Malpositioned IUD, sequela Pelvic pain in female Procedures XR PELVIS 3V AP/INLET/OUTLET RADIOLOGIC EXAM PELVIS COMPL MINIMUM 3 VIEWS Mary Jo Chance MD [address] [place] [address] Xr Imaging [id number] Referral ID Status Reason Start Date Expiration Date V isits Requested Visits Authorized [id number] Closed Auto-Generate d Referral 08/20/2023 09/18/2024 1 1 * Outpatient Procedure (Routine) - Authorized Specialty Diagnoses / Procedures Referred By Tone musa Referred To Contact [facility] Diagnoses Encounter for IUD removal Encounter for insertion of intrauterine contraceptive device Procedures REMOVE INTRAUTERINE DEVICE REMOVE INTRAUTERINE DEVICE INSERT INTRAUTERINE DEVICE LEVONORGESTREL IU 52MG 5 YR Mary Jo Chance MD [address] [place] [address] [place] [id number] Referral ID Status Reason Start Date Expiration Date Visits Requested Visits Authorized [id number] Authorized Auto-Generat ed Referral 08/20/2023 02/10/2024 2 2 [facility] for referral (narrative)No reason for referral information availableWUniversity [facility]als [facility] Work Phone: Reason for visit Narrative* Diagnostic Procedure Only (Routine) - Closed Specialty Diagnoses / Procedures Referred By Tone musa Referred To Contact [facility] Diagnoses Pelvic pain in female Intrauterine contraceptive device threads lost, initial encounter Irregular bleeding Procedures PELVIC US WHI US PELVIC NONOBSTETRIC REAL-TIME IMAGE COMPLETE Sandra Cole, NOA.ULISSES [address] [place] [address] [facility] [address] [id number] Referral ID Status Reason Start Date Expiration Date V isits Requested Visits Authorized [id number] Closed Auto-Generate d Referral 08/18/2023 08/17/2024 [address] [facility] for visit Narrative* Diagnostic Procedure Only (Routine) - Closed Specialty Diagnoses / Procedures [facility] Referred To Contact XR IMAGING Diagnoses Malpositioned IUD, sequela Pelvic pain in female Procedures XR PELVIS 3V AP/INLET/OUTLET RADIOLOGIC EXAM PELVIS COMPL MINIMUM 3 VIEWS Mary Jo Chance MD [address] [place] [address] [place] [id number] Referral ID Status Reason Start Date Expiration Date V isits Requested Visits Authorized [id number] Closed Auto-Generate d Referral 08/20/2023 09/18/2024 [address] [facility] for visit Narrative* Outpatient Procedure (Routine) - Closed Specialty Diagnoses / Procedures Ref[facility] Referred To [facility] Diagnoses Paroxysmal SVT (supraventricular tachycardia) (HCC) Palpitations Procedures ECHO ECHO TTHRC R-T 2D W/WOM-MODE COMPL SPEC&COLR D Rachell Amador A, CHILD CAREGIVER PRIVATE HOME.DOCTOR ASSISTANT [address] [place] [address] [facility] [address] [place] [address] Referral ID Status Reason Start Date Expiration Date V isits Requested Visits Authorized [id number] Closed Auto-Generate d Referral 08/20/2023 10/03/2023 [address] [facility] for visit Narrative* Auth/Cert Specialty Diagnoses / Procedures Ref[facility] Referred To Contact Diagnoses SVT (supraventricular tachycardia) ([facility]) SVT (supraventricular tachycardia) (CMS-HCC) [I47.10] Procedures DC COMPRE EP EVAL ABLTJ 3D MAPG TX SVT Ablation SVT ([id number]) Ramiro Hugo MD [address] [facility] [address], [address] [place] [address] [facility] [address] [place] [address] Referral ID Status Reason Start Date Expiration Date Visits Re quested Visits Authorized [id number] [address] [facility] Work Phone: Reason for visit Narrative* Pesotum Prior Authorization (Routine) - Authorized Specialty Diagnoses / Procedures Referred By Contac t Referred To Contact Diagnoses Maternal iron deficiency anemia complicating , third trimester (HCC) Nayely Gil PA-C [address] [facility] [place] [address] Phone: tel: fax: [facility] [address] [place] [address] Phone: tel: fax: Referral ID Status Reason Start Date Expiration Date V isits Requested Visits Authorized [id number] Authorized 08/06/2024 02/09/2025 1 100 [facility] Summary Purpose Family History No Family History Records Found Relationship Condition Age at Onset Recorded Date/T vanessa father Drug abuse Unknown Advance Directives No Advanced Directives Records Found Advance Directive Response Recorded Date/ Time Living Will No January 07, 2 021 2:03pm Power of Commercial Artist No January 07, 2021 2:03pm Documents on File Type Date Recorded 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 Advance Directive(s) 05/15/2021 9:17 AM Advance Directive Response Recorded Date/ Time Living Will No January 07, 2 021 1:03pm Power of Commercial Artist No January 07, 2021 1:03pm Advance Directive Response Recorded Date/ Time Living Will No August 17, 2022 1 0:35am Power of Commercial Artist No August 17, 2022 10:35am Advance Directive Response Recorded Date/ Time Living Will No August 29, 2022 3:34pm Power of Commercial Artist No August 29 3:34pm Date Activated Date Inactivated Comments 06/17/2023 8:31 AM Question Answer Comments Plan of Care: Code Status Discussion Not Compl eted Decision Maker: Provider Rationale: Patient condition does not warra nt discussion Date Activated Date Inactivated Comments 06/17/2023 8:31 AM Question Answer Comments Plan of Care: Code Status Discussion Not Compl eted Decision Maker: Provider Rationale: Patient condition does not warra nt discussion Date Activated Date Inactivated Comments 06/20/2023 3:06 AM Question Answer Comments Plan of Care: Code Status Discussion Completed Decision Maker: Patient Date Activated Date Inactivated Comments 06/17/2023 8:31 AM 06/20/2023 3:06 AM Question Answer Comments Plan of Care: Code Status Discussion Not Compl eted Decision Maker: Provider Rationale: Patient condition does not warra nt discussion Date Activated Date Inactivated Comments 06/20/2023 3:06 AM Question Answer Comments Plan of Care: Code Status Discussion Completed Decision Maker: Patient Date Activated Date Inactivated Comments 06/17/2023 8:31 AM 06/20/2023 3:06 AM Question Answer Comments Plan of Care: Code Status Discussion Not Compl eted Decision Maker: Provider Rationale: Patient condition does not warra nt discussion Advance Directive Response Recorded Date/ Time Living Will No June 22, 2023 9 :41am Power of Commercial Artist No June 22, 2023 9:41am Chief Complaint and Reason for Visit Chief Complaint SAB Chief 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 Chief Complaint abd pain Chief Complaint abd pain ABD Chief Complaint CHEST PAIN Chief Complaint Admit Date R/O PRE E August 03, 2024 1:17 pm Reason for Referral Specialty Diagnoses / Procedures Referred By Tone musa Referred To Contact Diagnoses Episode of recurrent major depressive disorder, unspecified depression episode severity (HCC) Anxiety PTSD (post-traumatic stress disorder) Post depression Procedures CONSULT TO WOMEN'S BEHAVIORAL HEALTH OFFICE/OUTPATIENT [facility] 60 MINUTES Gino Valero APRN.FRANDY [address] [place] [address] Referral ID Status Reason Start Date Expiration Date Visits Requested Visits Authorized [id number] Authorized PCP Requested Referral 04/23/2023 04/22/2024 1 1 Specialty Diagnoses / Procedures Referred By Tone musa Referred To Contact Cardiology Diagnoses Single subsegmental pulmonary embolism without acute cor pulmonale (Multi) Procedures Vascular US Lower Extremity [place] [address] [facility] [address], [address] [address] Referral ID Status Reason Start Date Expiration Date Visits Requested Visits Authorized [id number] Authorized Perform Procedure 06/25/2023 06/24/2024 1 1 Specialty Diagnoses / Procedures Referred By Contac t Referred To Contact Cardiology Diagnoses Palpitations Procedures Holter Or [place] [address] [facility] [address], [place] [phone] Referral ID Status Reason Start Date Expiration Date V isits Requested Visits Authorized [id number] Pending Review 06/25/2023 06/24/2024 1 1 Referral ID Status Reason Start Date Expiration Date V isits Requested Visits Authorized [id number] Authorized 06/25/2023 06/24/2024 1 1 Specialty Diagnoses / Procedures Referred By Contac t Referred To Contact Cardiology / [facility] Diagnoses Paroxysmal SVT (supraventricular tachycardia) (HCC) Palpitations Procedures CONSULT TO CARDIOLOGY OFFICE/OUTPATIENT [facility] 60 MINUTES Rachell Amador, CHILD CAREGIVER PRIVATE HOME.DOCTOR ASSISTANT [address] [place] [address] Jonathan Dutta, [address] [place] [address] Referral ID Status Reason Start Date Expiration Date Visits Requested Visits Authorized [id number] Authorized PCP Requested Referral 07/31/2023 07/30/2024 1 1 Specialty Diagnoses / Procedures Referred By Contac t [facility] Diagnoses Paroxysmal SVT (supraventricular tachycardia) (HCC) Palpitations Procedures ECHO ECHO TTHRC R-T 2D W/WOM-MODE COMPL SPEC&COLR D Rachell Amador, CHILD CAREGIVER PRIVATE HOME.DOCTOR ASSISTANT [address] [place] [address] [facility] [address] [place] [address] Referral ID Status Reason Start Date Expiration Date Visits Requested Visits Authorized [id number] Additional Clinical Info Needed Auto-Generat ed Referral 07/31/2023 07/30/2024 1 1 Specialty Diagnoses / Procedures Referred By Contac t Referred To Contact [facility] Diagnoses Paroxysmal SVT (supraventricular tachycardia) (HCC) Procedures CONSULT TO ELECTROPHYSIOLOGY OFFICE/OUTPATIENT [facility] 60 MINUTES Rachell Amador, CHILD CAREGIVER PRIVATE HOME.DOCTOR ASSISTANT [address] [place] [address] [facility] [place] [address] Referral ID Status Reason Start Date Expiration Date Visits Requested Visits Authorized [id number] Authorized PCP Requested Referral 07/31/2023 07/30/2024 1 1 Specialty Diagnoses / Procedures Referred By Contac t Referred To Contact General Surgery Diagnoses Functional diarrhea Procedures CONSULT TO GENERAL SURGERY OFFICE/OUTPATIENT [facility] 60 MINUTES Mary Jo Chance MD [address] [place] [address] Referral ID Status Reason Start Date Expiration Date Visits Requested Visits Authorized [id number] Authorized PCP Requested Referral 09/23/2023 2024 1 1 Specialty Diagnoses / Procedures Referred By Contac t Referred To Contact Gastroenterology Diagnoses Functional diarrhea Procedures CONSULT TO GASTROENTEROLOGY OFFICE/OUTPATIENT [facility] 60 MINUTES Mary Jo Chance MD [address] [place] [address] Referral ID Status Reason Start Date Expiration Date Visits Requested Visits Authorized [id number] Authorized PCP Requested Referral 09/23/2023 2024 1 1 Specialty Diagnoses / Procedures Referred By Contac t Referred To Contact Gastroenterology Diagnoses Functional diarrhea Status post laparoscopic cholecystectomy Procedures CONSULT TO GASTROENTEROLOGY OFFICE/OUTPATIENT [facility] 60 MINUTES Conor Duarte MD [address] [place] [address] Referral ID Status Reason Start Date Expiration Date Visits Requested Visits Authorized [id number] Authorized PCP Requested Referral 09/29/2023 09/28/2024 1 1 Specialty Diagnoses / Procedures Referred By Contac t Referred To Contact Diagnoses Pulmonary embolism (Multi) SVT (supraventricular tachycardia) ([facility]-H[facility]) Palpitations Procedures ECG 12 lead (Clinic Performed) Ramiro Hugo MD [address] [facility] [address], [address] [address] Referral ID Status Reason Start Date Expiration Date V isits Requested Visits Authorized [id number] Authorized 08/21/2023 08/20/2024 1 1 Specialty Diagnoses / Procedures Referred By Contac t Referred To Contact Hematology Diagnoses History of pulmonary embolism Supervision of other high risk pregnancies, first trimester Procedures CONSULT TO HEMATOLOGY OFFICE/OUTPATIENT NEW HIGH MDM 60 MINUTES Jaquelin Hi APRN.CNM [address] [place] [address] Referral ID Status Reason Start Date Expiration Date Visits Requested Visits Authorized [id number] Authorized PCP Requested Referral 03/10/2024 03/10/2025 1 1 Specialty Diagnoses / Procedures Referred By Contac t Referred To Contact [facility] Diagnoses with uncertain dates, antepartum Procedures OBSTETRIC ULTRASOUND WHI US PREG UTERUS AFTER 1ST TRIMEST GESTATION Jaquelin Hi APRN.CNM [address] [place] [address] [facility] [address] [place] [address] Referral ID Status Reason Start Date Expiration Date Visits Requested Visits Authorized [id number] Authorized Auto-Generat ed Referral 03/09/2024 03/09/2025 1 1 Referral ID Status Reason Start Date Expiration Date Visits Requested Visits Authorized [id number] Authorized Auto-Generat ed Referral 03/09/2024 03/09/2025 1 1 Specialty Diagnoses / Procedures Referred By Contac t Referred To Contact Jaquelin Hi APRN.CNM [address] [place] [address] Referral ID Status Reason Start Date Expiration Date V isits Requested Visits Authorized [id number] Pending Review 1 1 Health Concerns Problem Noted Date Diagnosed Date [facility] CC Education - COMMON 10/10/2022 Problem Noted Date Diagnosed Date [facility] Education - COMMON 10/10/2022 [facility] Education - COMMON 10/23/2022 [place] - [place] 10/23/2022 Problem Noted Date Diagnosed Date [facility] Education - COMMON 10/10/2022 [facility] Education - COMMON 10/23/2022 Education - [place] 10/23/2022 Problem Noted Date Diagnosed Date [facility] Education - COMMON 10/10/2022 [facility] Education - COMMON 10/23/2022 Education - [place] 10/23/2022 Problem Noted Date Diagnosed Date [facility] CC Education - COMMON 10/10/2022 [facility] Education - COMMON 10/23/2022 Education - [place] 10/23/2022 Problem Noted Date Diagnosed Date [facility] CC Education - COMMON 10/10/2022 [facility] Education - COMMON 10/23/2022 Education - [place] 10/23/2022 Problem Noted Date Diagnosed Date [facility] CC Education - COMMON 10/10/2022 [facility] Education - COMMON 10/23/2022 [place] - [place] 10/23/2022 Additional Source Comments INFORMATION SOURCE (unrecogn ized section and content) DATE CREATED AUTHOR 08/05/2017 [facility] DATE CREATED AUTHOR AUTHOR'S ORGANIZ ATION 08/07/2017 [facility] DATE CREATED AUTHOR AUTHOR'S ORGANIZ ATION 07/21/2019 [facility] DATE CREATED AUTHOR AUTHOR'S ORGANIZ ATION 07/21/2022 [facility] DATE CREATED AUTHOR AUTHOR'S ORGANIZ ATION 08/23/2022 [employer] DATE CREATED AUTHOR AUTHOR'S ORGANIZ ATION 07/15/2023 [facility] DATE CREATED AUTHOR AUTHOR'S ORGANIZ ATION 09/16/2023 [facility] DATE CREATED AUTHOR AUTHOR'S ORGANIZ ATION 10/08/2023 [facility] DATE CREATED AUTHOR AUTHOR'S ORGANIZ ATION 01/30/2024 [facility] DATE CREATED AUTHOR AUTHOR'S ORGANIZ ATION 02/05/2024 [facility] DATE CREATED AUTHOR AUTHOR'S ORGANIZ ATION 02/24/2024 [facility] DATE CREATED AUTHOR AUTHOR'S ORGANIZ ATION 08/04/2024 [facility] DATE CREATED AUTHOR AUTHOR'S ORGANIZ ATION 08/13/2024 [facility] DATE CREATED AUTHOR AUTHOR'S ORGANIZ ATION 08/28/2024 [facility] DATE CREATED AUTHOR AUTHOR'S ORGANIZ ATION 09/05/2024 [facility] <item><item> Privacy Markings (unrecogniz ed section and content) Section Author: Erica Meek PROHIBITION ON REDISCLOSURE OF CONFIDENTIAL INFORMATION This notice accompanies a disclosure of information concerning a client made to you with the consent of such client. Section Author: Erica Meek PROHIBITION ON REDISCLOSURE OF CONFIDENTIAL INFORMATION This notice accompanies a disclosure of information concerning a client made to you with the consent of such client. Goals (unrecognized section and content) Goals may be documented in a n alternate sectionGoals may be documented in an alternate sectionGoals may be documented in an alternate sectionGoals may be documented in an alternate sectionGoals may be documented in an alternate sectionGoals may be documented in an alternate sectionGoals may be documented in an alternate sectionGoals may be documented in an alternate sectionGoals may be documented in an alternate sectionGoals may be documented in an alternate sectionGoals may be documented in an alternate sectionGoals may be documented in an alternate sectionGoals may be documented in an alternate sectionGoals may be documented in an alternate section Source Comments (unrecognize d section and content) In the event this informatio n is protected by the [facility] Confidentiality of Alcohol and Drug Abuse Patient Records regulations: The Federal rules restrict any use of the information to criminally investigate or prosecute any alcohol or drug abuse patient.[facility] the event this information is protected by the Federal Confidentiality of Alcohol and Drug Abuse Patient Records regulations: The Federal rules restrict any use of the information to criminally investigate or prosecute any alcohol or drug abuse patient.[facility] the event this information is protected by the Federal Confidentiality of Alcohol and Drug Abuse Patient Records regulations: The Federal rules restrict any use of the information to criminally investigate or prosecute any alcohol or drug abuse patient.[facility] the event this information is protected by the Federal Confidentiality of Alcohol and Drug Abuse Patient Records regulations: The Federal rules restrict any use of the information to criminally investigate or prosecute any alcohol or drug abuse patient.[facility] the event this information is protected by the Federal Confidentiality of Alcohol and Drug Abuse Patient Records regulations: The Federal rules restrict any use of the information to criminally investigate or prosecute any alcohol or drug abuse patient.[facility] the event this information is protected by the Federal Confidentiality of Alcohol and Drug Abuse Patient Records regulations: The Federal rules restrict any use of the information to criminally investigate or prosecute any alcohol or drug abuse patient.[facility] the event this information is protected by the Federal Confidentiality of Alcohol and Drug Abuse Patient Records regulations: The Federal rules restrict any use of the information to criminally investigate or prosecute any alcohol or drug abuse patient.[facility] the event this information is protected by the Federal Confidentiality of Alcohol and Drug Abuse Patient Records regulations: The Federal rules restrict any use of the information to criminally investigate or prosecute any alcohol or drug abuse patient.[facility] the event this information is protected by the Federal Confidentiality of Alcohol and Drug Abuse Patient Records regulations: The Federal rules restrict any use of the information to criminally investigate or prosecute any alcohol or drug abuse patient.[facility] the event this information is protected by the Federal Confidentiality of Alcohol and Drug Abuse Patient Records regulations: The Federal rules restrict any use of the information to criminally investigate or prosecute any alcohol or drug abuse patient.[facility] the event this information is protected by the Federal Confidentiality of Alcohol and Drug Abuse Patient Records regulations: The Federal rules restrict any use of the information to criminally investigate or prosecute any alcohol or drug abuse patient.[facility] the event this information is protected by the Federal Confidentiality of Alcohol and Drug Abuse Patient Records regulations: The Federal rules restrict any use of the information to criminally investigate or prosecute any alcohol or drug abuse patient.[facility] the event this information is protected by the Federal Confidentiality of Alcohol and Drug Abuse Patient Records regulations: The Federal rules restrict any use of the information to criminally investigate or prosecute any alcohol or drug abuse patient.[facility] the event this information is protected by the Federal Confidentiality of Alcohol and Drug Abuse Patient Records regulations: The Federal rules restrict any use of the information to criminally investigate or prosecute any alcohol or drug abuse patient.[facility] the event this information is protected by the Federal Confidentiality of Alcohol and Drug Abuse Patient Records regulations: The Federal rules restrict any use of the information to criminally investigate or prosecute any alcohol or drug abuse patient.[facility] the event this information is protected by the Federal Confidentiality of Alcohol and Drug Abuse Patient Records regulations: The Federal rules restrict any use of the information to criminally investigate or prosecute any alcohol or drug abuse patient.[facility] the event this information is protected by the Federal Confidentiality of Alcohol and Drug Abuse Patient Records regulations: The Federal rules restrict any use of the information to criminally investigate or prosecute any alcohol or drug abuse patient.[facility] the event this information is protected by the Federal Confidentiality of Alcohol and Drug Abuse Patient Records regulations: The Federal rules restrict any use of the information to criminally investigate or prosecute any alcohol or drug abuse patient.[facility] the event this information is protected by the Federal Confidentiality of Alcohol and Drug Abuse Patient Records regulations: The Federal rules restrict any use of the information to criminally investigate or prosecute any alcohol or drug abuse patient.[facility] the event this information is protected by the Federal Confidentiality of Alcohol and Drug Abuse Patient Records regulations: The Federal rules restrict any use of the information to criminally investigate or prosecute any alcohol or drug abuse patient.[facility] the event this information is protected by the Federal Confidentiality of Alcohol and Drug Abuse Patient Records regulations: The Federal rules restrict any use of the information to criminally investigate or prosecute any alcohol or drug abuse patient.[facility] the event this information is protected by the Federal Confidentiality of Alcohol and Drug Abuse Patient Records regulations: The Federal rules restrict any use of the information to criminally investigate or prosecute any alcohol or drug abuse patient.[facility] the event this information is protected by the Federal Confidentiality of Alcohol and Drug Abuse Patient Records regulations: The Federal rules restrict any use of the information to criminally investigate or prosecute any alcohol or drug abuse patient.[facility] the event this information is protected by the Federal Confidentiality of Alcohol and Drug Abuse Patient Records regulations: The Federal rules restrict any use of the information to criminally investigate or prosecute any alcohol or drug abuse patient.[facility] the event this information is protected by the Federal Confidentiality of Alcohol and Drug Abuse Patient Records regulations: The Federal rules restrict any use of the information to criminally investigate or prosecute any alcohol or drug abuse patient.[facility] the event this information is protected by the Federal Confidentiality of Alcohol and Drug Abuse Patient Records regulations: The Federal rules restrict any use of the information to criminally investigate or prosecute any alcohol or drug abuse patient.[facility] the event this information is protected by the Federal Confidentiality of Alcohol and Drug Abuse Patient Records regulations: The Federal rules restrict any use of the information to criminally investigate or prosecute any alcohol or drug abuse patient.[facility] the event this information is protected by the Federal Confidentiality of Alcohol and Drug Abuse Patient Records regulations: The Federal rules restrict any use of the information to criminally investigate or prosecute any alcohol or drug abuse patient.[facility]ronIn the event this information is protected by the Federal Confidentiality of Alcohol and Drug Abuse Patient Records regulations: The Federal rules restrict any use of the information to criminally investigate or prosecute any alcohol or drug abuse patient.[facility]ronIn the event this information is protected by the Federal Confidentiality of Alcohol and Drug Abuse Patient Records regulations: The Federal rules restrict any use of the information to criminally investigate or prosecute any alcohol or drug abuse patient.[facility]ronIn the event this information is protected by the Federal Confidentiality of Alcohol and Drug Abuse Patient Records regulations: The Federal rules restrict any use of the information to criminally investigate or prosecute any alcohol or drug abuse patient.[facility]ronIn the event this information is protected by the Federal Confidentiality of Alcohol and Drug Abuse Patient Records regulations: The Federal rules restrict any use of the information to criminally investigate or prosecute any alcohol or drug abuse patient.[facility]ronIn the event this information is protected by the Federal Confidentiality of Alcohol and Drug Abuse Patient Records regulations: The Federal rules restrict any use of the information to criminally investigate or prosecute any alcohol or drug abuse patient.[facility]ronIn the event this information is protected by the Federal Confidentiality of Alcohol and Drug Abuse Patient Records regulations: The Federal rules restrict any use of the information to criminally investigate or prosecute any alcohol or drug abuse patient.[facility]ronIn the event this information is protected by the Federal Confidentiality of Alcohol and Drug Abuse Patient Records regulations: The Federal rules restrict any use of the information to criminally investigate or prosecute any alcohol or drug abuse patient.[facility]ronIn the event this information is protected by the Federal Confidentiality of Alcohol and Drug Abuse Patient Records regulations: The Federal rules restrict any use of the information to criminally investigate or prosecute any alcohol or drug abuse patient.[facility]ronIn the event this information is protected by the Federal Confidentiality of Alcohol and Drug Abuse Patient Records regulations: The Federal rules restrict any use of the information to criminally investigate or prosecute any alcohol or drug abuse patient.[facility]ronIn the event this information is protected by the Federal Confidentiality of Alcohol and Drug Abuse Patient Records regulations: The Federal rules restrict any use of the information to criminally investigate or prosecute any alcohol or drug abuse patient.[facility]ronIn the event this information is protected by the Federal Confidentiality of Alcohol and Drug Abuse Patient Records regulations: The Federal rules restrict any use of the information to criminally investigate or prosecute any alcohol or drug abuse patient.[facility]ronIn the event this information is protected by the Federal Confidentiality of Alcohol and Drug Abuse Patient Records regulations: The Federal rules restrict any use of the information to criminally investigate or prosecute any alcohol or drug abuse patient.[facility]ronIn the event this information is protected by the Federal Confidentiality of Alcohol and Drug Abuse Patient Records regulations: The Federal rules restrict any use of the information to criminally investigate or prosecute any alcohol or drug abuse patient.[facility]ronIn the event this information is protected by the Federal Confidentiality of Alcohol and Drug Abuse Patient Records regulations: The Federal rules restrict any use of the information to criminally investigate or prosecute any alcohol or drug abuse patient.[facility]ronIn the event this information is protected by the Federal Confidentiality of Alcohol and Drug Abuse Patient Records regulations: The Federal rules restrict any use of the information to criminally investigate or prosecute any alcohol or drug abuse patient.[facility]ronIn the event this information is protected by the Federal Confidentiality of Alcohol and Drug Abuse Patient Records regulations: The Federal rules restrict any use of the information to criminally investigate or prosecute any alcohol or drug abuse patient.[facility]ronIn the event this information is protected by the Federal Confidentiality of Alcohol and Drug Abuse Patient Records regulations: The Federal rules restrict any use of the information to criminally investigate or prosecute any alcohol or drug abuse patient.[facility]ronIn the event this information is protected by the Federal Confidentiality of Alcohol and Drug Abuse Patient Records regulations: The Federal rules restrict any use of the information to criminally investigate or prosecute any alcohol or drug abuse patient.[facility]ronIn the event this information is protected by the Federal Confidentiality of Alcohol and Drug Abuse Patient Records regulations: The Federal rules restrict any use of the information to criminally investigate or prosecute any alcohol or drug abuse patient.[facility]ronIn the event this information is protected by the Federal Confidentiality of Alcohol and Drug Abuse Patient Records regulations: The Federal rules restrict any use of the information to criminally investigate or prosecute any alcohol or drug abuse patient.[facility]ronIn the event this information is protected by the Federal Confidentiality of Alcohol and Drug Abuse Patient Records regulations: The Federal rules restrict any use of the information to criminally investigate or prosecute any alcohol or drug abuse patient.[facility]ronIn the event this information is protected by the Federal Confidentiality of Alcohol and Drug Abuse Patient Records regulations: The Federal rules restrict any use of the information to criminally investigate or prosecute any alcohol or drug abuse patient.[facility]ronIn the event this information is protected by the Federal Confidentiality of Alcohol and Drug Abuse Patient Records regulations: The Federal rules restrict any use of the information to criminally investigate or prosecute any alcohol or drug abuse patient.[facility]ronIn the event this information is protected by the Federal Confidentiality of Alcohol and Drug Abuse Patient Records regulations: The Federal rules restrict any use of the information to criminally investigate or prosecute any alcohol or drug abuse patient.[facility]ronIn the event this information is protected by the Federal Confidentiality of Alcohol and Drug Abuse Patient Records regulations: The Federal rules restrict any use of the information to criminally investigate or prosecute any alcohol or drug abuse patient.[facility]ronIn the event this information is protected by the Federal Confidentiality of Alcohol and Drug Abuse Patient Records regulations: The Federal rules restrict any use of the information to criminally investigate or prosecute any alcohol or drug abuse patient.[facility]ronIn the event this information is protected by the Federal Confidentiality of Alcohol and Drug Abuse Patient Records regulations: The Federal rules restrict any use of the information to criminally investigate or prosecute any alcohol or drug abuse patient.[facility]ronIn the event this information is protected by the Federal Confidentiality of Alcohol and Drug Abuse Patient Records regulations: The Federal rules restrict any use of the information to criminally investigate or prosecute any alcohol or drug abuse patient.[facility]ronIn the event this information is protected by the Federal Confidentiality of Alcohol and Drug Abuse Patient Records regulations: The Federal rules restrict any use of the information to criminally investigate or prosecute any alcohol or drug abuse patient.[facility]ronIn the event this information is protected by the Federal Confidentiality of Alcohol and Drug Abuse Patient Records regulations: The Federal rules restrict any use of the information to criminally investigate or prosecute any alcohol or drug abuse patient.[facility]ronIn the event this information is protected by the Federal Confidentiality of Alcohol and Drug Abuse Patient Records regulations: The Federal rules restrict any use of the information to criminally investigate or prosecute any alcohol or drug abuse patient.[facility]ronIn the event this information is protected by the Federal Confidentiality of Alcohol and Drug Abuse Patient Records regulations: The Federal rules restrict any use of the information to criminally investigate or prosecute any alcohol or drug abuse patient.[facility]ronIn the event this information is protected by the Federal Confidentiality of Alcohol and Drug Abuse Patient Records regulations: The Federal rules restrict any use of the information to criminally investigate or prosecute any alcohol or drug abuse patient.[facility]ronIn the event this information is protected by the Federal Confidentiality of Alcohol and Drug Abuse Patient Records regulations: The Federal rules restrict any use of the information to criminally investigate or prosecute any alcohol or drug abuse patient.[facility]ronIn the event this information is protected by the Federal Confidentiality of Alcohol and Drug Abuse Patient Records regulations: The Federal rules restrict any use of the information to criminally investigate or prosecute any alcohol or drug abuse patient.[facility]ronIn the event this information is protected by the Federal Confidentiality of Alcohol and Drug Abuse Patient Records regulations: The Federal rules restrict any use of the information to criminally investigate or prosecute any alcohol or drug abuse patient.[facility]ronIn the event this information is protected by the Federal Confidentiality of Alcohol and Drug Abuse Patient Records regulations: The Federal rules restrict any use of the information to criminally investigate or prosecute any alcohol or drug abuse patient.[facility]ronIn the event this information is protected by the Federal Confidentiality of Alcohol and Drug Abuse Patient Records regulations: The Federal rules restrict any use of the information to criminally investigate or prosecute any alcohol or drug abuse patient.[facility]ronIn the event this information is protected by the Federal Confidentiality of Alcohol and Drug Abuse Patient Records regulations: The Federal rules restrict any use of the information to criminally investigate or prosecute any alcohol or drug abuse patient.[facility]ronIn the event this information is protected by the Federal Confidentiality of Alcohol and Drug Abuse Patient Records regulations: The Federal rules restrict any use of the information to criminally investigate or prosecute any alcohol or drug abuse patient.[facility]ronIn the event this information is protected by the Federal Confidentiality of Alcohol and Drug Abuse Patient Records regulations: The Federal rules restrict any use of the information to criminally investigate or prosecute any alcohol or drug abuse patient.[facility]ronIn the event this information is protected by the Federal Confidentiality of Alcohol and Drug Abuse Patient Records regulations: The Federal rules restrict any use of the information to criminally investigate or prosecute any alcohol or drug abuse patient.[facility]ronIn the event this information is protected by the Federal Confidentiality of Alcohol and Drug Abuse Patient Records regulations: The Federal rules restrict any use of the information to criminally investigate or prosecute any alcohol or drug abuse patient.[facility]ronIn the event this information is protected by the Federal Confidentiality of Alcohol and Drug Abuse Patient Records regulations: The Federal rules restrict any use of the information to criminally investigate or prosecute any alcohol or drug abuse patient.[facility]ronIn the event this information is protected by the Federal Confidentiality of Alcohol and Drug Abuse Patient Records regulations: The Federal rules restrict any use of the information to criminally investigate or prosecute any alcohol or drug abuse patient.[facility]ronIn the event this information is protected by the Federal Confidentiality of Alcohol and Drug Abuse Patient Records regulations: The Federal rules restrict any use of the information to criminally investigate or prosecute any alcohol or drug abuse patient.[facility] Reason for Visit (unrecogniz ed section and content) Reason Comments wants HIV testing was told by ex that he tested positive for this Reason Comments UTI Burning with urinati on x5 days Reason Comments Received Outside Medical Records Reason Comments Forms praf Reason Onset Date Comments Care 11/19/2022 Reason Comments PRAF Reason Onset Date Comments Care 11/18/2022 Reason Onset Date Comments Care 12/03/2022 Reason Onset Date Comments Population Health Navigation Outreach 12/13/2022 Peds/OB Reason Comments Ob Delivery Note Reason Comments Routine Reason Comments AUB Reason Comments Menstrual Problem Reason Comments Anxiety Depression Posttraumatic Stress Disorder Specialty Diagnoses / Procedures Referred By Tone musa Referred To Contact Diagnoses Episode of recurrent major depressive disorder, unspecified depression episode severity (HCC) Anxiety PTSD (post-traumatic stress disorder) Post depression Procedures CONSULT TO WOMEN'S BEHAVIORAL HEALTH OFFICE/OUTPATIENT [facility] 60 MINUTES Gino Valero APRN.FR[address] [place] [address] Referral ID Status Reason Start Date Expiration Date V isits Requested Visits Authorized [id number] Closed PCP Requested Referral 04/23/2023 04/22/2024 1 1 Reason Comments Establish Care low back pain Wrecked her dirt charlene chacon on May 14 she went to the ER in [place] on 05/19/23 Location: tailbone Pain scale: 7Description: sharp painTreatment: heat, tylenol, motrin, and muscle relaxor Reason Comments Med Change Request Reason Comments Anxiety Depression Follow Up Specialty Diagnoses / Procedures Referred By Tone musa Referred To Contact Diagnoses Symptomatic cholelithiasis Symptomatic cholelithiasis [K80.20] Procedures DC LAPAROSCOPY SURG CHOLECYSTECTOMY Laparoscopic cholecystectomy, possible open Alla Llanes MD [address] [facility], [facility] [address] [place] [address] [place] [address] [place] [phone] Referral ID Status Reason Start Date Expiration Date Visits Re quested Visits Authorized [id number] 1 1 Reason Comments Nausea Amb to ED with c/o i ncrease surgical site pain, nausea, and chills. Instructed to come to ER by surgeon. Had gallbladder removed yesterday. Has been taking Tylenol, Percocet, and Motrin. Afebrile in triage. Reason Comments Vomiting Pt had gall bladder removed on Friday. N/V/D today. Unable to keep food or liquid down. Was at ED yesterday for same. General abdominal pain 11/19 Specialty Diagnoses / Procedures Referred By Tone musa Referred To Contact Diagnoses Status post cholecystectomy Vomiting and diarrhea Acute post-operative pain Procedures no coded services entered Bora oD MD [address] [place] [address] [place] [phone] Referral ID Status Reason Start Date Expiration Date Visits Re quested Visits Authorized [id number] 1 1 Reason Comments Shortness of Breath Pt reports SOB, stat es she recently had gallbladder SX and was called by her surgeon and told she has a blood clot in her lung. Reason Comments Heavy Bleeding Reason Comments Numbness Pt states she has nu mbness in both her feet. Pt was recently admitted for gallbladder surgery complications. Pt states she developed a blood clot in lungs during her stay and is on eliquis. Pt also states she is having heavy vaginal bleeding now. Reason Comments Clinical Update Reason Comments Patient Update Reason Comments New Patient Visit Pt here for npt PE. Has side effects for eliquis. C/o SOB and feet numbness and tingling. Specialty Diagnoses / Procedures Referred By Tone musa Referred To Contact Cardiology Saturnino Velázquez DO [address] [place] [address] Department of Emergency Medicine [place] [phone] Norbert Herndon MD [address] [place] [address] Dr Kulwant Almeida, [facility] [address] [place] [id number] Referral ID Status Reason Start Date Expiration Date Visits Requested Visits Authorized [id number] Authorized Specialty Services Required 06/21/2023 06/20/2024 1 1 Reason Onset Date Comments Follow Up Was at [facility] ED Insertion Of IUD 06/26/2023 Specialty Diagnoses / Procedures Referred By Tone t Referred To Contact [facility] Diagnoses Abnormal uterine bleeding (AUB) Encounter for removal of intrauterine contraceptive device Encounter for insertion of intrauterine contraceptive device Procedures INSERT INTRAUTERINE DEVICE LEVONORGESTREL IU 52MG 5 YR INSERT INTRAUTERINE DEVICE REMOVE INTRAUTERINE DEVICE Prabhu Ortez MD [address] [place] [address] [facility] [address] [place] [address] Referral ID Status Reason Start Date Expiration Date Visits Requested Visits Authorized [id number] Authorized Auto-Generat ed Referral 06/26/2023 02/10/2024 2 2 Reason Comments ER F/U Gallbladder removed. Has blood clot in lung now Reason Comments Pulmonary Embolism Specialty Diagnoses / Procedures Referred By Contac t Referred To Contact Hematology and Oncology Saturnino Velázquez, DO [address] [facility] Department [place] [address] Miki Jaramillo MD [address] [place] [address] [facility] [address] [place] [address] Referral ID Status Reason Start Date Expiration Date Visits Requested Visits Authorized [id number] Authorized Specialty Services Required 06/21/2023 06/20/2024 1 1 Specialty Diagnoses / Procedures Referred By Contac t Referred To Contact Cardiology Diagnoses Single subsegmental pulmonary embolism without acute cor pulmonale (Multi) Procedures Vascular US Lower Extremity [place] [address] [facility] [address], [place] [address] Referral ID Status Reason Start Date Expiration Date Visits Requested Visits Authorized [id number] Authorized Perform Procedure 06/25/2023 06/24/2024 1 1 Specialty Diagnoses / Procedures Referred By Contac t Referred To Contact Cardiology Diagnoses Palpitations Procedures Holter Or Event [place] [address] [facility] [address] [place] [address] Referral ID Status Reason Start Date Expiration Date V isits Requested Visits Authorized [id number] Authorized 06/25/2023 06/24/2024 1 1 Reason Comments Smoking Cessation Reason Comments IUD check Reason Comments Heart Problem Her heart rate has b een going up, hot flashes, dizziness, chest tightens up. Reason Comments problem visit IUD pain Reason Comments Refill Request Reason Comments Results Reason Comments IUD Removal Reason Onset Date Comments IUD Removal 08/20/2023 Specialty Diagnoses / Procedures Referred By Tone musa Referred To Contact [facility] Diagnoses Encounter for IUD removal Encounter for insertion of intrauterine contraceptive device Procedures REMOVE INTRAUTERINE DEVICE REMOVE INTRAUTERINE DEVICE INSERT INTRAUTERINE DEVICE LEVONORGESTREL IU 52MG 5 YR Mary Jo Chance MD [address] [place] [address] [facility] [address] [place] [address] Referral ID Status Reason Start Date Expiration Date Visits Requested Visits Authorized [id number] Authorized Auto-Generat ed Referral 08/20/2023 02/10/2024 2 2 Reason Comments Consult Reason Comments Preparations For Surgery Reason Comments Pre-Op Exam Reason Comments Post Op Reason Comments Follow Up Heavy bleeding Reason Onset Date Comments Post-Op Visit 09/23/2023 Reason Comments Consult Diarrhea since her c holecystectomy in June 2023. Specialty Diagnoses / Procedures Referred By Tone musa Referred To Contact General Surgery Diagnoses Functional diarrhea Procedures CONSULT TO GENERAL SURGERY OFFICE/OUTPATIENT [facility] 60 MINUTES Mary Jo Chance MD [address] [place] [address] Referral ID Status Reason Start Date Expiration Date V isits Requested Visits Authorized [id number] Closed PCP Requested Referral 09/23/2023 2024 1 1 Reason Comments Diarrhea Specialty Diagnoses / Procedures Referred By Tone musa Referred To Contact Gastroenterology Diagnoses Functional diarrhea Status post laparoscopic cholecystectomy Procedures CONSULT TO GASTROENTEROLOGY OFFICE/OUTPATIENT [facility] 60 MINUTES Conor Duarte MD [address] [place] [address] Referral ID Status Reason Start Date Expiration Date V isits Requested Visits Authorized [id number] Closed PCP Requested Referral 09/29/2023 09/28/2024 1 1 Reason Comments Problem Visit Reason Comments 3 month f/u Reason Comments Wellness Reason Comments Establish Care Palpitations Specialty Diagnoses / Procedures Referred By Contac t Referred To Contact Diagnoses Pulmonary embolism (Multi) SVT (supraventricular tachycardia) ([facility]) Palpitations Procedures ECG 12 lead (Clinic Performed) Ramiro Hugo MD [address] [employer] [address], [address] [address] Referral ID Status Reason Start Date Expiration Date V isits Requested Visits Authorized [id number] Authorized 08/21/2023 08/20/2024 1 1 Reason Comments Follow-up Ablation Specialty Diagnoses / Procedures Referred By Contac t Referred To Contact Diagnoses Atrial fibrillation, unspecified type (Multi) Procedures ECG 12 lead (Clinic Performed) Ramiro Hugo MD [address] [employer], [facility] [address] [place] [address] Phone: tel: fax: Referral ID Status Reason Start Date Expiration Date V isits Requested Visits Authorized [id number] Authorized 01/27/2024 01/26/2025 1 1 Reason Comments Abdominal Pain Upper abd pain with n/v/d x 3 days I feel dehydrated Reason Onset Date Comments ER F/U 02/18/2024 [facility] 02/18/2024 Reason Comments 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 Reason Comments US Specialty Diagnoses / Procedures Referred By Contac t Referred To Contact [facility] Diagnoses with uncertain dates, antepartum Procedures OBSTETRIC ULTRASOUND WHI US PREG UTERUS AFTER 1ST TRIMEST GESTATION Jaquelin Hi APRN.CN [address] [place] [address] Phone: tel: fax: [facility] [address] [place] [phone] Referral ID Status Reason Start Date Expiration Date V isits Requested Visits Authorized [id number] Closed Auto-Generate d Referral 03/09/2024 03/09/2025 1 1 Reason Onset Date Comments Care 04/07/2024 Reason Onset Date Comments Care 05/04/2024 Reason Comments [facility] Specialty Diagnoses / Procedures Referred By Contac t Referred To Contact [facility] Diagnoses with uncertain dates, antepartum (HCC) Procedures OBSTETRIC ULTRASOUND WHI US PREG UTERUS AFTER 1ST TRIMEST GESTATION Jaquelin Hi APRN.[facility] [address] [place] [address] Phone: tel: fax: [facility] [address] [place] [address] Referral ID Status Reason Start Date Expiration Date V isits Requested Visits Authorized [id number] Closed Auto-Generate d Referral 03/09/2024 03/09/2025 1 1 Reason Onset Date Comments Care 06/01/2024 Reason Onset Date Comments Care 07/27/2024 Reason Comments 6 month f/u Specialty Diagnoses / Procedures Referred By Contac t Referred To Contact Diagnoses SVT (supraventricular tachycardia) Procedures ECG 12 lead (Clinic Performed) Ramiro Hugo MD [address] [address] Phone: tel: fax: Referral ID Status Reason Start Date Expiration Date V isits Requested Visits Authorized [id number] Authorized 08/03/2024 08/03/2025 1 1 Reason Comments Anemia Specialty Diagnoses / Procedures Referred By Contac t Referred To Contact Referral ID Status Reason Start Date Expiration Date V isits Requested Visits Authorized [id number] New Request 08/03/2024 10/02/2024 1 1 Reason Onset Date Comments Care 08/10/2024 Reason Comments Infusion Specialty Diagnoses / Procedures Referred By Contac t Referred To Contact Diagnoses Maternal iron deficiency anemia complicating , third trimester (HCC) Nayely Gil PA-C [address] [place] [address] Phone: tel: fax: [facility] [address] [place] [address] Phone: tel: fax: Referral ID Status Reason Start Date Expiration Date V isits Requested Visits Authorized [id number] Authorized 08/06/2024 02/09/2025 1 99 Referral ID Status Reason Start Date Expiration Date V isits Requested Visits Authorized [id number] Authorized 08/06/2024 02/09/2025 1 100 Reason Onset Date Comments Care 08/24/2024 Care Teams (unrecognized sec tion and content) Team Status: Active Member Role Status Dates Dr. Renato Edouard MD Family Provider Active [facility] Primary Care Provider A ctive Team Status: Inactive Member Role Status Dates [facility] Primary Care Provider A ctive Dr. Neelima Dahl MD Attending Provider Active Team Status: Active Member Role Status Dates Dr. Renato Edouard MD Family Provider Active No Primary Care Physician Primary Care Provider Active Team Status: Inactive Member Role Status Dates Dr. Kristofer Low MD Emergency Provider Active No Primary Care Physician Primary Care Provider Active Team Status: Inactive Member Role Status Dates No Primary Care Physician Primary Care Provider Active Dr. Jimmy Anna MD Emergency Provider Active Team Status: Inactive Member Role Status Dates Dr. Kristofer Low MD Attending Provider, Emergency Provider Active No Primary Care Physician Primary Care Provider Active Team Status: Inactive Member Role Status Dates No Primary Care Physician Primary Care Provider Active Dr. Jimmy Anna MD Attending Provider, Emergency Pr ovider Active Team Status: Inactive Member Role Status Dates No Primary Care Physician Primary Care Provider Active Dr. Neelima Dahl MD Attending Provider Active [employer] Relationship Specialty Start Date End Date Neelima Dahl MD [address] [address] PCP - General SHAFTING CLEANER 04/30/22 Sales Engineer [employer] Relationship Specialty Start Date End Date Neelima Dahl MD [address] [address] PCP - General SHAFTING CLEANER 04/30/22 Sales Engineer [employer] Relationship Specialty Start Date End Date Neelima Dahl MD [address] [address] PCP - General SHAFTING CLEANER 04/30/22 Sales Engineer [employer] Relationship Specialty Start Date End Date Neelima Dahl MD [address] [address] PCP - General SHAFTING CLEANER 04/30/22 Sales Engineer [employer] Relationship Specialty Start Date End Date Neelima Dahl MD [address] [address] PCP - General SHAFTING CLEANER 04/30/22 Sales Engineer [employer] Relationship Specialty Start Date End Date Neelima Dahl MD [address] [address] PCP - General SHAFTING CLEANER 04/30/22 Sales Engineer [employer] Relationship Specialty Start Date End Date Neelima Dahl MD [address] [address] PCP - General SHAFTING CLEANER 04/30/22 Sales Engineer [employer] Relationship Specialty Start Date End Date Neelima Dahl MD [address] [address] PCP - General Pipe Coremaker 04/30/22 Sales Engineer [employer] Relationship Specialty Start Date End Date Neelima Dahl MD [address] [address] PCP - General Pipe Coremaker 04/30/22 Sales Engineer [employer] Relationship Specialty Start Date End Date Neelima Dahl MD [address] [address] PCP - General Pipe Coremaker 04/30/22 Sales Engineer [employer] Relationship Specialty Start Date End Date Jacob Mackenzie DO [address] [place] [address] PCP - General Family Medicine 05/29/23 Sales Engineer [employer] Relationship Specialty Start Date End Date Jacob Mackenzie DO [address] [place] [address] PCP - General Family Medicine 05/29/23 Sales Engineer [employer] Relationship Specialty Start Date End Date Jacob Mackenzie [address] [place] [address] PCP - General Family Medicine 05/29/23 Sales Engineer [employer] Relationship Specialty Start Date End Date Rachell Amador APRN-CNP [address] [place] [address] PCP - General Family Medicine 06/18/23 Sales Engineer [employer] Relationship Specialty Start Date End Date Rachell Amador APRN-CNP [address] [place] [address] PCP - General Family Medicine 06/18/23 Sales Engineer [employer] Relationship Specialty Start Date End Date Rachell Amador APRN-CNP [address] [place] [address] PCP - General Family Medicine 06/18/23 Sales Engineer [employer] Relationship Specialty Start Date End Date Rachell Amador APRN-CNP [address] [place] [address] PCP - General Family Medicine 06/18/23 Team Status: Active Member Role Status Dates Dr. Renato Edouard MD Family Provider Active Rachell Amador PROFESSOR OF ENVIRONMENTAL SCIENCE, PROFESSOR OF ENVIRONMENTAL SCIENCE-C Primary Care Provider Active Team Status: Inactive Member Role Status Dates Rachell Amador PROFESSOR OF ENVIRONMENTAL SCIENCE, PROFESSOR OF ENVIRONMENTAL SCIENCE-C Primary Care Provider Active Dr. Roger Osman , DO Emergency Provider Active [employer] Relationship Specialty Start Date End Date Rachell Amador APRN.DOCTOR ASSISTANT [address] [facility], [place] [id number] PCP - General Family Medicine 06/22/23 Sales Engineer [employer] Relationship Specialty Start Date End Date Rachell Amador, CHILD CAREGIVER PRIVATE HOME-DOCTOR ASSISTANT [address] [place] [address] PCP - General Family Medicine 06/18/23 Saturnino Velázquez, [address] [place] [address] Consulting Physician Emergency Medicine 06/24/23 Sales Engineer [employer] Relationship Specialty Start Date End Date Rachell Amador CHILD CAREGIVER PRIVATE HOME.DOCTOR ASSISTANT [address] [place] [address] PCP - General Family Medicine 06/22/23 Sales Engineer [employer] Relationship Specialty Start Date End Date Rachell Amador CHILD CAREGIVER PRIVATE HOME.DOCTOR ASSISTANT [address] [facility], [place] [id number] PCP - General Family Medicine 06/22/23 Sales Engineer [employer] Relationship Specialty Start Date End Date Rachell Amador CHILD CAREGIVER PRIVATE HOME-DOCTOR ASSISTANT [address] [place] [address] PCP - General Family Medicine 06/18/23 Saturnino Velázquez, [address] [place] [address] [place] [address] Consulting Physician Emergency Medicine 06/24/23 Sales Engineer [employer] Relationship Specialty Start Date End Date Rachell Amador CHILD CAREGIVER PRIVATE HOME.DOCTOR ASSISTANT [address] [place], [place] [id number] PCP - General Family Medicine 06/22/23 Sales Engineer [employer] Relationship Specialty Start Date End Date Rachell Amador CHILD CAREGIVER PRIVATE HOME.DOCTOR ASSISTANT [address] [place], [place] [id number] PCP - General Family Medicine 06/22/23 Sales Engineer [employer] Relationship Specialty Start Date End Date Rachell Amador CHILD CAREGIVER PRIVATE HOME.DOCTOR ASSISTANT [address] [place], [place] [id number] PCP - General Family Medicine 06/22/23 Sales Engineer [employer] Relationship Specialty Start Date End Date Rachell Amador APRN-DOCTOR ASSISTANT [address] [place], [place] [id number] PCP - General Family Medicine 06/18/23 Saturnino Velázquez, [address] [place] [address] [place] [address] Consulting Physician Emergency Medicine 06/24/23 Miki Jaramillo MD [facility] [address] [place] [address] Consulting Physician Hematology and Oncology 07/02/23 Sales [employer] Relationship Specialty Start Date End Date Rachell Amador APRN-DOCTOR ASSISTANT [address] [place] [address] PCP - General Family Medicine 06/18/23 Saturnino Velázquez, [address] [place] [address] [place] [address] Consulting Physician Emergency Medicine 06/24/23 Miki Jaramillo MD [address] [place] [address] Consulting Physician Hematology and Oncology 07/02/23 Sales [employer] Relationship Specialty Start Date End Date Rachell Amador APRN-DOCTOR ASSISTANT [address] [place] [address] PCP - General Family Medicine 06/18/23 Saturnino Velázquez, [address] [place] [address] Department of Emergency Medicine [place] [phone] Consulting Physician Emergency Medicine 06/24/23 Miki Jaramillo MD [address] [place] [phone] Consulting Physician Hematology and Oncology 07/02/23 [employer] Relationship Specialty Start Date End Date aRchell Amador APRN-DOCTOR ASSISTANT [address] [place] [address] PCP - General Family Medicine 06/18/23 Saturnino Velázquez, [address] [place] [address] Department [place] [address] Consulting Physician Emergency Medicine 06/24/23 Miki Jaramillo MD [address] [place] [address] Consulting Physician Hematology and Oncology 07/02/23 Sales [employer] Relationship Specialty Start Date End Date Rachell Amador APRN.DOCTOR ASSISTANT [address] [place] [address] PCP - General Family Medicine 06/22/23 Sales Engineer [employer] Relationship Specialty Start Date End Date Rachell Amador, CHILD CAREGIVER PRIVATE HOME.DOCTOR ASSISTANT [address] [place] [address] PCP - General Family Medicine 06/22/23 Sales Engineer [employer] Relationship Specialty Start Date End Date Rachell Amador, CHILD CAREGIVER PRIVATE HOME.DOCTOR ASSISTANT [address] [place] [address] PCP - General Family Medicine 06/22/23 Sales Engineer [employer] Relationship Specialty Start Date End Date Rachell Amador, CHILD CAREGIVER PRIVATE HOME.DOCTOR ASSISTANT [address] [place] [address] PCP - General Family Medicine 06/22/23 Sales Engineer [employer] Relationship Specialty Start Date End Date Rachell Amador, CHILD CAREGIVER PRIVATE HOME.DOCTOR ASSISTANT [address] [place] [address] PCP - General Family Medicine 06/22/23 Sales Engineer [employer] Relationship Specialty Start Date End Date Rachell Amador, CHILD CAREGIVER PRIVATE HOME.DOCTOR ASSISTANT [address] [place] [address] PCP - General Family Medicine 06/22/23 Sales Engineer [employer] Relationship Specialty Start Date End Date Rachell Amador, CHILD CAREGIVER PRIVATE HOME.DOCTOR ASSISTANT [address] [place] [address] PCP - General Family Medicine 06/22/23 Sales Engineer [employer] Relationship Specialty Start Date End Date Rachell Amador, CHILD CAREGIVER PRIVATE HOME.DOCTOR ASSISTANT [address] [place] [address] PCP - General Family Medicine 06/22/23 Sales Engineer [employer] Relationship Specialty Start Date End Date Rachell Amador, CHILD CAREGIVER PRIVATE HOME.DOCTOR ASSISTANT [address] [place] [address] PCP - General Family Medicine 06/22/23 Sales Engineer [employer] Relationship Specialty Start Date End Date Rachell Amador, CHILD CAREGIVER PRIVATE HOME.DOCTOR ASSISTANT [address] [place] [address] PCP - General Family Medicine 06/22/23 Sales Engineer [employer] Relationship Specialty Start Date End Date Rachell Amador, CHILD CAREGIVER PRIVATE HOME.DOCTOR ASSISTANT [address] [place] [address] PCP - General Family Medicine 06/22/23 Sales Engineer [employer] Relationship Specialty Start Date End Date Rachell Amador, CHILD CAREGIVER PRIVATE HOME.DOCTOR ASSISTANT [address] [place] [address] PCP - General Family Medicine 06/22/23 Sales Engineer [employer] Relationship Specialty Start Date End Date Rachell Amador, CHILD CAREGIVER PRIVATE HOME.DOCTOR ASSISTANT [address] [place] [address] PCP - General Family Medicine 06/22/23 Sales Engineer [employer] Relationship Specialty Start Date End Date Rachell Amador, CHILD CAREGIVER PRIVATE HOME.DOCTOR ASSISTANT [address] [place] [address] PCP - General Family Medicine 06/22/23 Sales Engineer [employer] Relationship Specialty Start Date End Date Rachell Amador, CHILD CAREGIVER PRIVATE HOME.DOCTOR ASSISTANT [address] [place] [address] PCP - General Family Medicine 06/22/23 Sales Engineer [employer] Relationship Specialty Start Date End Date Rachell Amador, CHILD CAREGIVER PRIVATE HOME.DOCTOR ASSISTANT [address] [place], [place] [id number] PCP - General Family Medicine 06/22/23 Sales Engineer [employer] Relationship Specialty Start Date End Date Rachell Amador, CHILD CAREGIVER PRIVATE HOME.DOCTOR ASSISTANT [address] [place], [place] [id number] PCP - General Family Medicine 06/22/23 Sales Engineer [employer] Relationship Specialty Start Date End Date Rachell Amador, CHILD CAREGIVER PRIVATE HOME.DOCTOR ASSISTANT [address] [place] [address] PCP - General Family Medicine 06/22/23 Sales Engineer [employer] Relationship Specialty Start Date End Date Rachell Amador, CHILD CAREGIVER PRIVATE HOME.DOCTOR ASSISTANT [address] [place] [address] PCP - General Family Medicine 06/22/23 Sales Engineer [employer] Relationship Specialty Start Date End Date Rachell Amador, CHILD CAREGIVER PRIVATE HOME.DOCTOR ASSISTANT [address] [place] [address] PCP - General Family Medicine 06/22/23 Sales Engineer [employer] Relationship Specialty Start Date End Date Rachell Amador, CHILD CAREGIVER PRIVATE HOME.DOCTOR ASSISTANT [address] [place] [address] PCP - General Family Medicine 06/22/23 Sales Engineer [employer] Relationship Specialty Start Date End Date Rachell Amador, CHILD CAREGIVER PRIVATE HOME-DOCTOR ASSISTANT [address] [facility] [place] [address] PCP - General Family Medicine 06/18/23 Saturnino Velázquez DO [address] [place] [address] Department [place] [address] Consulting Physician Emergency Medicine 06/24/23 Miki Jaramillo MD [address] [place] [address] Consulting Physician Hematology and Oncology 07/02/23 Sales Engineer [employer] Relationship Specialty Start Date End Date Rachell Amador APRN.DOCTOR ASSISTANT [address] [place] [address] PCP - General Family Medicine 06/22/23 Sales Engineer [employer] Relationship Specialty Start Date End Date Rachell Amador APRN-DOCTOR ASSISTANT [address] [place] [address] PCP - General Family Medicine 06/18/23 Saturnino Velázquez, [address] [place] [address] Emergency Medicine [place] [phone] Consulting Physician Emergency Medicine 06/24/23 Miki Jaramillo MD [address] [place] [phone] Consulting Physician Hematology and Oncology 07/02/23 Sales Engineer [employer] Relationship Specialty Start Date End Date Rachell Amador APRN-DOCTOR ASSISTANT [address] [place] [address] PCP - General Family Medicine 06/18/23 Saturnino Velázquez DO [address] [place] [address] Emergency [place] [phone] Consulting Physician Emergency Medicine 06/24/23 Miki Jaramillo MD [address] [place] [address] Consulting Physician Hematology and Oncology 07/02/23 Sales Engineer [employer] Relationship Specialty Start Date End Date Rachell Amador APRN-DOCTOR ASSISTANT [address] [place] [address] PCP - General Family Medicine 06/18/23 Saturnino Velázquez, [address] [place] [address] Department of Emergency Medicine [place] [phone] Consulting Physician Emergency Medicine 06/24/23 Miki Jaramillo MD [address] [place] [address] Consulting Physician Hematology and Oncology 07/02/23 Ramiro Hugo MD [address], [address] [place] [address] Consulting Physician Cardiology 01/27/24 Sales Engineer [employer] Relationship Specialty Start Date End Date Rachell Amador APRN-ULISSES [address] [place] [address] PCP - General Family Medicine 06/18/23 Saturnino Velázquez, [address] [place] [address] Department [place] [address] Consulting Physician Emergency Medicine 06/24/23 Miki Jaramillo MD [address] [place] [address] Consulting Physician Hematology and Oncology 07/02/23 Ramiro Hugo MD [address], [address] [place] [address] Consulting Physician Cardiology 01/27/24 Sales Engineer [employer] Relationship Specialty Start Date End Date Rachell Amador, CHILD CAREGIVER PRIVATE HOME.DOCTOR ASSISTANT [address] [place] [address] PCP - General Family Medicine 06/22/23 Sales Engineer [employer] Relationship Specialty Start Date End Date Rachell Amador, CHILD CAREGIVER PRIVATE HOME.DOCTOR ASSISTANT [address] [place] [address] PCP - General Family Medicine 06/22/23 Sales Engineer [employer] Relationship Specialty Start Date End Date Rachell Amador, CHILD CAREGIVER PRIVATE HOME.DOCTOR ASSISTANT [address] [place] [address] PCP - General Family Medicine 06/22/23 Sales Engineer [employer] Relationship Specialty Start Date End Date Rachell Amador, CHILD CAREGIVER PRIVATE HOME.DOCTOR ASSISTANT [address] [place] [address] PCP - General Family Medicine 06/22/23 Sales Engineer [employer] Relationship Specialty Start Date End Date Rachell Amador, CHILD CAREGIVER PRIVATE HOME.DOCTOR ASSISTANT [address] [place] [address] PCP - General Family Medicine 06/22/23 Sales Engineer [employer] Relationship Specialty Start Date End Date Rachell Amador, CHILD CAREGIVER PRIVATE HOME.DOCTOR ASSISTANT [address] [place] [address] PCP - General Family Medicine 06/22/23 Sales Engineer [employer] Relationship Specialty Start Date End Date Rachell Amador, CHILD CAREGIVER PRIVATE HOME.DOCTOR ASSISTANT [address] [place] [address] PCP - General Family Medicine 06/22/23 Sales Engineer [employer] Relationship Specialty Start Date End Date Rachell Amador, CHILD CAREGIVER PRIVATE HOME.DOCTOR ASSISTANT [address] [place], [place] [id number] PCP - General Family Medicine 06/22/23 Sales Engineer [employer] Relationship Specialty Start Date End Date Rachell Amador, CHILD CAREGIVER PRIVATE HOME.DOCTOR ASSISTANT [address] [place], [place] [id number] PCP - General Family Medicine 06/22/23 Sales Engineer [employer] Relationship Specialty Start Date End Date Rachell Amador, CHILD CAREGIVER PRIVATE HOME.DOCTOR ASSISTANT [address] [place], [place] [id number] PCP - General Family Medicine 06/22/23 Sales Engineer [employer] Relationship Specialty Start Date End Date Rachell Amador, CHILD CAREGIVER PRIVATE HOME.DOCTOR ASSISTANT [address] [place], [place] [id number] PCP - General Family Medicine 06/22/23 Sales Engineer [employer] Relationship Specialty Start Date End Date Rachell Amador, CHILD CAREGIVER PRIVATE HOME-DOCTOR ASSISTANT [address] [place], [place] [id number] PCP - General Family Medicine 06/18/23 Saturnino Velázquez DO [address] [place] [address] Department [place] [address] Consulting Physician Emergency Medicine 06/24/23 Miki Jaramillo MD [facility] [address] [facility] [address] [place] [address] Consulting Physician Hematology and Oncology 07/02/23 Ramiro Hugo MD [address] [facility] [address], [address] [place] [address] Consulting Physician Cardiology 01/27/24 Team Status: Inactive Member Role Status Dates Rachell Amador PROFESSOR OF ENVIRONMENTAL SCIENCE, PROFESSOR OF ENVIRONMENTAL SCIENCE-C Primary Care Provider Active Start: August 03, 2024 End: August 03, 2024 Dr. Prabhu Ortez MD Attending Provider Active Start: August 03, 2024 End: August 03, 2024 Dr. Prabhu Ortez MD Referring Provider Active Start: August 03, 2024 End: August 03, 2024 Sales Engineer [employer] Relationship Specialty Start Date End Date Rachell Amador, CHILD CAREGIVER PRIVATE HOME.DOCTOR ASSISTANT [address] [place], [place] [phone] PCP - General Family Medicine 06/22/23 Sales Engineer [employer] Relationship Specialty Start Date End Date Rachell Amador, CHILD CAREGIVER PRIVATE HOME.DOCTOR ASSISTANT [address] [place] [address] PCP - General Family Medicine 06/22/23 Sales Engineer [employer] Relationship Specialty Start Date End Date Rachell Amador, CHILD CAREGIVER PRIVATE HOME.DOCTOR ASSISTANT [address] [place], [place] [phone] PCP - General Family Medicine 06/22/23 Sales Engineer [employer] Relationship Specialty Start Date End Date Rachell Amador, CHILD CAREGIVER PRIVATE HOME.DOCTOR ASSISTANT [address] [place] [address] PCP - General Family Medicine 06/22/23 Sales Engineer [employer] Relationship Specialty Start Date End Date Rachell Amador, CHILD CAREGIVER PRIVATE HOME.DOCTOR ASSISTANT [address] [place] [address] PCP - General Family Medicine 06/22/23 Sales Engineer [employer] Relationship Specialty Start Date End Date Rachell Amador, CHILD CAREGIVER PRIVATE HOME.DOCTOR ASSISTANT [address] [place] [address] PCP - General Family Medicine 06/22/23 Sales Engineer [employer] Relationship Specialty Start Date End Date Rachell Amador, CHILD CAREGIVER PRIVATE HOME.DOCTOR ASSISTANT [address] [facility] [place] [place] [phone] PCP - General Family Medicine 06/22/23 Sales Engineer [employer] Relationship Specialty Start Date End Date Rachell Amador, CHILD CAREGIVER PRIVATE HOME.DOCTOR ASSISTANT [address] [place], [place] [id number] PCP - General Family Medicine 06/22/23 Sales Engineer [employer] Relationship Specialty Start Date End Date Rachell Amador, CHILD CAREGIVER PRIVATE HOME.DOCTOR ASSISTANT [address] [place], [place] [id number] PCP - General Family Medicine 06/22/23 Scheduled Active and Recently Administ ered Medications (unrecognized section and content) Medication Order 06/15/2023 06/16/2023 06/17/2023 acetaminophen (Tylenol) tablet 975 mg (COMPLETED) 975 mg, oral, Once, On Fri06/17/23 at 0900, For 1 dose, Preprocedure, Administer with small amount of water preoperatively., If ordered PRN for pain, nurse is permitted to administer this medication for higher pain scores based on patient preference? Yes 0859 (Given - Provid er: Ariana Nuno RN) cefOXitin (Mefoxin) 2 g IV in dextrose 5% 50 mL (COMPLETED) 2 g, intravenous, at 100 mL/hr, Administer over 30 Minutes, Once, On Fri06/17/23 at 0900, For 1 dose, Preprocedure, Duplex bag - activate before hanging., Suspected Indication (Select all that apply): Surgical Prophylaxis 0913 (New Bag - Prov ider: Ariana Nuno RN)0943 (Due: Stopped - Provider: Ariana Nuno RN) dexAMETHasone (PF) (Decadron) injection 8 mg (COMPLETED) 8 mg, intravenous, Once, On 06/17/23 at 0900, For 1 dose, Preprocedure 0900 (Given - Provid er: Ariana Nuno RN) midazolam (Versed) injection 1 mg (COMPLETED) 1 mg, intravenous, Once, On e 06/17/23 at 0900, For 1 dose, Preprocedure 0910 (Given - Provid er: Ariana Nuno RN) ondansetron (Zofran) injection 4 mg (COMPLETED) 4 mg, intravenous, Once, On e 06/17/23 at 0900, For 1 dose, Preprocedure, When administering via IV Push, administer over 3-5 minutes. 0900 (Given - Provid er: Ariana Nuno RN) Continuous Medication Order 06/15/2023 06/16/2023 06/17/2023 lactated Ringer's infusion 50 mL/hr, intravenous, Continuous, Starting on Fri06/17/23 at 0900, Preprocedure 0859 (New Bag - Prov ider: Ariana Nuno RN)1130 (Stopped - Provider: Ariana Nuno RN) lactated Ringer's infusion 100 mL/hr, intravenous, Continuous, Starting on Fri06/17/23 at 1030, Recovery (only) 1030 (Due) PRN Medication Order 06/15/2023 06/16/2023 06/17/2023 bupivacaine PF (Marcaine) 0.25 % (2.5 mg/mL) injection (CANCELED) As needed, Starting on Fri06/17/23 at 1033, Intraprocedure 1033 (Given - Provid er: Alla Llanes MD) labetaloL (Normodyne,Trandate) injection 5 mg 5 mg, intravenous, Administer over 1 Minutes, Once as needed, systolic blood pressure greater than 180 mmHg, dystolic blood pressure greater than 100 mmHg and heart rate greater than 60 BPM, Starting on Fri06/17/23 at 1013, For 1 dose, Recovery (only) morphine injection 2 mg 2 mg, intravenous, Every 5 min PRN, pain moderate (4-6), first line, Starting on Fri06/17/23 at 1013, Recovery (only), Max total of 20 mg regardless of dose. morphine injection 4 mg 4 mg, intravenous, Every 5 min PRN, pain severe (7-10), first line, Starting on Fri06/17/23 at 1013, Recovery (only), Max total of 20 mg regardless of dose. 1017 (Given - Provid er: Joy Eric RN) ondansetron (Zofran) injection 4 mg 4 mg, intravenous, Once as needed, nausea/vomiting, first line, Starting on Fri06/17/23 at 1013, For 1 dose, Recovery (only), When administering via IV Push, administer over 3-5 minutes. oxyCODONE (Roxicodone) immediate release tablet 5 mg 5 mg, oral, Every 4 hours PRN, pain mild (1-3), first line, Starting on Fri06/17/23 at 1013, Recovery (only), When able to take oral medications., If ordered PRN for pain, nurse is permitted to administer this medication for higher pain scores based on patient preference? Yes 1052 (Given - Provid er: Ariana Nuno RN) promethazine (Phenergan) 6.25 mg in sodium chloride 0.9% 50 mL IV 6.25 mg, intravenous, Administer over 15 Minutes, Once as needed, Nausea/vomiting, second line, Starting on Fri06/17/23 at 1013, For 1 dose, Recovery (only) Scheduled Medication Order 06/16/2023 06/17/2023 06/18/2023 HYDROmorphone (Dilaudid) injection 0.5 mg (COMPLETED) 0.5 mg, intravenous, Once, On Fri06/18/23 at 1805, For 1 dose 180 (Given - Provid er: Moriah Valente RN) morphine injection 4 mg (COMPLETED) 4 mg, intravenous, Once, On Fri06/18/23 at 1715, For 1 dose 172 (Given - Provid er: Moriah Valente RN) ondansetron (Zofran) injection 4 mg (COMPLETED) 4 mg, intravenous, Once, On Fri06/18/23 at 1715, For 1 dose, When administering via IV Push, administer over 3-5 minutes. 172 (Given - Provid er: Moriah Valente RN) potassium chloride CR (Klor-Con M20) ER tablet 20 mEq 20 mEq, oral, Daily, First dose on Fri06/18/23 at 1755, Best given with food and plenty of water to minimize gastric irritation. Do not crush or chew. 1802 (Given - Provid er: Moriah Valente RN) sodium chloride 0.9 % bolus 1,000 mL (COMPLETED) 1,000 mL, intravenous, at 999 mL/hr, Administer over 1 Hours, Once, On Fri06/18/23 at 1715, For 1 dose 1725 (New Bag - Prov ider: Moriah Valente RN)1802 (Stopped - Provider: Moriah Valente RN) Scheduled Medication Order 06/18/2023 06/19/2023 06/20/2023 ciprofloxacin (Cipro) IVPB 400 mg 400 mg, intravenous, at 200 mL/hr, Administer over 60 Minutes, Every 12 hours, First dose on Fri06/20/23 at 0330, premix bag, Dosing of this medication varies based on severity of illness. Does this patient have sepsis or concern for sepsis (probable or documented infection plus systemic manifestations of infection)? No, Suspected Indication (Select all that apply): Abdominal Infection, Type of Therapy: Empiric, Type of infection: Community-Acquired 0425 (New Bag - Provider: Nayely Padgett RN)0525 (Stopped - Provider: Nayely Padgett RN)1458 (New Bag - Provider: Warrne Thomason RN)1558 (Due: Stopped - Provider: Warren Thomason RN) famotidine PF (Pepcid) injection 20 mg 20 mg, intravenous, Every 12 hours scheduled, First dose on Fri06/20/23 at 0230 0316 (Given - Provid er: Nayely Padgett RN)1131 (Given - Provider: Warren Thomason RN)2100 (Due) gabapentin (Neurontin) capsule 300 mg 300 mg, oral, Nightly, First dose on Fri06/20/23 at 2100, Capsules may be opened and sprinkled on food (eg, applesauce, orange juice, pudding 2100 (Due) haloperidol lactate (Haldol) injection 2 mg (COMPLETED) 2 mg, intravenous, Once, On Fri06/20/23 at 0715, For 1 dose, Patients receiving IV haloperidol should be on continuous cardiac monitoring. 0659 (Given - Provid er: Nayely Padgett RN) iohexol (OMNIPaque) 350 mg iodine/mL solution 68 mL (COMPLETED) 68 mL, intravenous, Once in imaging, Starting on Kimmy 06/19/23 at 1955, For 1 dose 1945 (Given - Provider: Tylor Nolan) metroNIDAZOLE (Flagyl) 500 mg in NaCl (iso-os) 100 mL 500 mg, intravenous, Administer over 60 Minutes, Every 8 hours, First dose on Fri06/20/23 at 0330, Do NOT give with alcohol or drug products with significant alcohol content., Suspected Indication (Select all that apply): Abdominal Infection, Type of Therapy: Empiric, Type of infection: Community-Acquired 0317 (New Bag - Provider: Nayely Padgett RN)0417 (Stopped - Provider: Nayely Padgett RN)1131 (New Bag - Provider: Warren Thomason RN)1231 (Stopped - Provider: Warren Thomason RN)1929 (Due) morphine injection 4 mg (COMPLETED) 4 mg, intravenous, Once, On Kimmy 06/19/23 at 1700, For 1 dose 1723 (Given - Provider: Marco Lazo RN) morphine injection 4 mg (COMPLETED) 4 mg, intravenous, Once, On Kimmy 06/19/23 at 2030, For 1 dose 2046 (Given - Provider: Marco Lazo RN) ondansetron (Zofran) injection 4 mg (COMPLETED) 4 mg, intravenous, Once, On Kimmy 06/19/23 at 1700, For 1 dose, When administering via IV Push, administer over 3-5 minutes. 1723 (Given - Provider: Marco Lazo RN)1939 (Given - Provider: Marco Lazo RN) promethazine (Phenergan) 12.5 mg in sodium chloride 0.9% 50 mL IV (COMPLETED) 12.5 mg, intravenous, Administer over 15 Minutes, Once, On Kimmy 06/19/23 at 2030, For 1 dose 2047 (New Bag - Provider: Marco Lazo RN)2125 (Stopped - Provider: Marco Lazo RN) sodium chloride 0.9 % bolus 1,000 mL (COMPLETED) 1,000 mL, intravenous, at 999 mL/hr, Administer over 1 Hours, Once, On Kimmy 06/19/23 at 1700, For 1 dose 1722 (New Bag - Provider: Marco Lazo RN)1841 (Stopped - Provider: Marco Lazo RN) [id number] (Choletec) injection 6 millicurie (COMPLETED) 6 millicurie, intravenous, Once in imaging, Starting on Fri06/20/23 at 0625, For 1 dose, Administer immediately and up to 24 hours prior to imaging unless otherwise indicated 0625 (Given - Provid er: Shawna Dahl) venlafaxine XR (Effexor-XR) 24 hr capsule 150 mg 150 mg, oral, Daily RT, First dose on Fri06/20/23 at 0700, Capsule may be swallowed whole, or may be opened and its contents sprinkled on applesauce if consumed immediately without chewing. Do not crush or chew. 1132 (Given - Provid er: Warren Thomason RN) Continuous Medication Order 06/18/2023 06/19/2023 06/20/2023 sodium chloride 0.9% infusion 100 mL/hr, intravenous, Continuous, Starting on Fri06/20/23 at 0330 0315 (New Bag - Prov ider: Nayely Padgett RN)1528 (Rate/Dose Verify - Provider: Warren Thomason RN) PRN Medication Order 06/18/2023 06/19/2023 06/20/2023 acetaminophen (Tylenol) oral liquid 650 mg(Linked Group 1) 650 mg, oral, Every 4 hours PRN, pain mild (1-3), first line, Starting on Fri06/20/23 at 0306, Give oral liquid per feeding tube if present. acetaminophen (Tylenol) suppository 650 mg(Linked Group 1) 650 mg, rectal, Every 4 hours PRN, pain mild (1-3), first line, Starting on Fri06/20/23 at 0306, Give rectally if unable to administer by mouth or feeding tube., If ordered PRN for pain, nurse is permitted to administer this medication for higher pain scores based on patient preference? Yes acetaminophen (Tylenol) tablet 650 mg(Linked Group 1) 650 mg, oral, Every 4 hours PRN, pain mild (1-3), first line, Starting on Fri06/20/23 at 0306, If ordered PRN for pain, nurse is permitted to administer this medication for higher pain scores based on patient preference? Yes LORazepam (Ativan) injection 1 mg (COMPLETED) 1 mg, intravenous, Administer over 5 Minutes, Once as needed, anxiety, if no relief with haldol, Starting on Fri06/20/23 at 0645, For 1 dose, Maximum rate of 2 mg/min. 0659 (Given - Provid er: Nayely Padgett RN) morphine injection 2 mg 2 mg, intravenous, Every 3 hours PRN, pain severe (7-10), first line, pain moderate (4-6), second line, Starting on Fri06/20/23 at 0306 0324 (Given - Provid er: Nayely Padgett RN)0700 (Given - Provider: Nayely Padgett, RN) ondansetron (Zofran) injection 4 mg(Linked Group 2) 4 mg, intravenous, Every 8 hours PRN, nausea/vomiting, first line, Starting on Fri06/20/23 at 0306, 1st Line. Give IV if patient is unable to take orally. If inadequate response within 60 minutes, proceed to next-line agent for same PRN reason or contact provider if no further options ordered. When administering via IV Push, administer over 3-5 minutes. 0602 (Given - Provid er: Nayely Padgett RN) ondansetron ODT (Zofran-ODT) disintegrating tablet 4 mg(Linked Group 2) 4 mg, oral, Every 8 hours PRN, nausea/vomiting, first line, Starting on Fri06/20/23 at 0306, 1st Line. Patient should allow tablet to dissolve on tongue. Do not remove from blister pack until just before administering. If inadequate response within 60 minutes, proceed to next-line agent for same PRN reason or contact provider if no further options ordered. 0602 (See Alternativ e - Provider: Nayely Padgett RN) No Frequency Medication Order 06/18/2023 06/19/2023 06/20/2023 sodium chloride (PF) 0.9% solution - [employer] Override Pull (COMPLETED) Starting on Fri06/20/23 at 0312, For 1 dose, Created by cabinet override 0315 (Given - Provid er: Nayely Padgett RN) Linked Groups Order Group 1: acetaminophen (Tylenol) tablet 650 mgJump to med 650 mg, oral, Every 4 hours PRN, pain mild (1-3), first line, Starting on Fri06/20/23 at 0306, If ordered PRN for pain, nurse is permitted to administer this medication for higher pain scores based on patient preference? Yes Or acetaminophen (Tylenol) oral liquid 650 mgJump to med 650 mg, oral, Every 4 hours PRN, pain mild (1-3), first line, Starting on Fri06/20/23 at 0306, Give oral liquid per feeding tube if present. Or acetaminophen (Tylenol) suppository 650 mgJump to med 650 mg, rectal, Every 4 hours PRN, pain mild (1-3), first line, Starting on Fri06/20/23 at 0306, Give rectally if unable to administer by mouth or feeding tube., If ordered PRN for pain, nurse is permitted to administer this medication for higher pain scores based on patient preference? Yes Group 2: ondansetron ODT (Zofran-ODT) disintegrating tablet 4 mgJump to med 4 mg, oral, Every 8 hours PRN, nausea/vomiting, first line, Starting on Fri06/20/23 at 0306, 1st Line. Patient should allow tablet to dissolve on tongue. Do not remove from blister pack until just before administering. If inadequate response within 60 minutes, proceed to next-line agent for same PRN reason or contact provider if no further options ordered. Or ondansetron (Zofran) injection 4 mgJump to med 4 mg, intravenous, Every 8 hours PRN, nausea/vomiting, first line, Starting on Fri06/20/23 at 0306, 1st Line. Give IV if patient is unable to take orally. If inadequate response within 60 minutes, proceed to next-line agent for same PRN reason or contact provider if no further options ordered. When administering via IV Push, administer over 3-5 minutes. Scheduled Medication Order 06/19/2023 06/20/2023 06/21/2023 iohexol (OMNIPaque) 350 mg iodine/mL solution 72 mL (COMPLETED) 72 mL, intravenous, Once in imaging, Starting on 06/21/23 at 0916, For 1 dose 0917 (Given - Provid er: Agata Laneson) Scheduled Medication Order 06/22/2023 06/23/2023 06/24/2023 iohexol (OMNIPaque) 350 mg iodine/mL solution 68 mL (COMPLETED) 68 mL, intravenous, Once in imaging, Starting on Fri06/24/23 at 2008, For 1 dose 1958 (Given - Provid er: Tylor Nolan) morphine injection 2 mg (COMPLETED) 2 mg, intravenous, Once, On Fri06/24/23 at 2049, For 1 dose 2100 (Given - Provid er: Marco Lazo RN) ondansetron (Zofran) injection 4 mg (COMPLETED) 4 mg, intravenous, Once, On Fri06/24/23 at 2049, For 1 dose, When administering via IV Push, administer over 3-5 minutes. 2100 (Given - Provid er: Marco Lazo RN) Scheduled Medication Order 10/01/2023 10/02/2023 10/03/2023 acetaminophen (Tylenol) tablet 975 mg (COMPLETED) 975 mg, oral, Once, On Fri10/03/23 at 1200, For 1 dose, Recovery (only), If ordered PRN for pain, nurse is permitted to administer this medication for higher pain scores based on patient preference? Yes 1339 (Given - Provid er: Severino Braswell RN) famotidine PF (Pepcid) injection 20 mg 20 mg, intravenous, Administer over 2 Minutes, Once, On Fri10/03/23 at 1200, For 1 dose, Recovery (only) 1200 (Due) metoprolol tartrate (Lopressor) injection 5 mg 5 mg, intravenous, Once, On Fri10/03/23 at 1200, For 1 dose, Recovery (only) 1200 (Due) scopolamine (Transderm-Scop) patch 1 patch 1 patch, transdermal, Administer over 72 Hours, Once, On Fri10/03/23 at 1200, For 1 dose, Recovery (only), Apply to hairless area of skin behind the ear. 1200 (Due) Continuous Medication Order 10/01/2023 10/02/2023 10/03/2023 lactated Ringer's infusion 100 mL/hr, intravenous, Continuous, Starting on Fri10/03/23 at 1200, Recovery (only) 1147 (Continued from OR - Provider: Jason Jasso RN) sodium chloride 0.9% infusion 50 mL/hr, intravenous, Continuous, Starting on Fri10/03/23 at 0700, Preprocedure 0750 (New Bag - Prov ider: CARO Wang)1135 (Stopped - Provider: CARO Wang) PRN Medication Order 10/01/2023 10/02/2023 10/03/2023 albuterol 2.5 mg /3 mL (0.083 %) nebulizer solution 2.5 mg 2.5 mg, nebulization, Once as needed, wheezing, Starting on Fri10/03/23 at 1143, For 1 dose, Recovery (only) diphenhydrAMINE (BENADryl) injection 25 mg 25 mg, intravenous, Once as needed, itching, allergic reaction, Starting on Fri10/03/23 at 1143, For 1 dose, Recovery (only) heparin PF 1,000 units in sodium chloride 0.9% 500 mL (2 unit/mL) flush infusion (CANCELED) Continuous PRN, Starting on Fri10/03/23 at 0835, Intraprocedure 0835 (New Bag - Prov ider: Dakota Barajas RN - Comment: KVO 7 tongan sheath RFV)1116 (Stopped - Provider: Jimmy Black RN) heparin PF 1,000 units in sodium chloride 0.9% 500 mL (2 unit/mL) flush infusion (CANCELED) Continuous PRN, Starting on Fri10/03/23 at 0836, Intraprocedure 0836 (New Bag - Prov ider: Dakota Barajas RN - Comment: KVO 8 tongan sheath RFV)1116 (Stopped - Provider: Jimmy Black RN) hydrALAZINE (Apresoline) injection 10 mg 10 mg, intravenous, Administer over 2 Minutes, Every 30 min PRN, systolic blood pressure greater than 180 mmHg and heart rate less than 60 BPM, Starting on Fri10/03/23 at 1143, For 2 doses, Recovery (only) HYDROmorphone (Dilaudid) injection 1 mg 1 mg, intravenous, Every 5 min PRN, pain severe (7-10), first line, Starting on Fri10/03/23 at 1143, Recovery (only), Max total of 4 mg regardless of dose. 1213 (Given - Provid er: Jason Jasso RN) isoproterenol (Isuprel) 0.2 mg in sodium chloride 0.9% 100 mL (0.002 mg/mL) infusion (CANCELED) Continuous PRN, Starting on Fri10/03/23 at 0903, Intraprocedure 0903 (New Bag - Prov ider: Dakota Barajas RN - Comment: for arrythmia induction)09 (Rate/Dose Change - Provider: Jimmy Black RN - Comment: for arrythmia induction)922 (Stopped - Provider: Jimmy Black, RN) labetaloL (Normodyne,Trandate) injection 10 mg 10 mg, intravenous, Administer over 1 Minutes, Once as needed, systolic blood pressure greater than 180 mmHg, dystolic blood pressure greater than 100 mmHg and heart rate greater than 60 BPM, Starting on Fri10/03/23 at 1143, For 1 dose, Recovery (only) lidocaine (Xylocaine) 20 mg/mL (2 %) injection (CANCELED) As needed, Starting on Fri10/03/23 at 1118, Intraprocedure 1118 (Given - Provid er: Ramiro Hugo MD - Comment: SQ bilateral groin sites for local anesthetic) meperidine (PF) (Demerol) injection 12.5 mg 12.5 mg, intravenous, Every 10 min PRN, shivering, Starting on Fri10/03/23 at 1143, Recovery (only) midazolam (Versed) injection 1 mg 1 mg, intravenous, Once as needed, anxiety, Starting on Fri10/03/23 at 1143, For 1 dose, Recovery (only) morphine injection 2 mg 2 mg, intravenous, Every 5 min PRN, pain moderate (4-6), first line, Starting on Fri10/03/23 at 1143, Recovery (only), Max total of 20 mg regardless of dose. ondansetron (Zofran) injection 4 mg 4 mg, intravenous, Once as needed, nausea/vomiting, first line, Starting on Fri10/03/23 at 1143, For 1 dose, Recovery (only), When administering via IV Push, administer over 3-5 minutes. promethazine (Phenergan) 6.25 mg in sodium chloride 0.9% 50 mL IV 6.25 mg, intravenous, Administer over 15 Minutes, Once as needed, Nausea/vomiting, second line, Starting on Fri10/03/23 at 1143, For 1 dose, Recovery (only) sodium chloride 0.9% infusion (CANCELED) Continuous PRN, Starting on Fri10/03/23 at 0831, Intraprocedure 0831 (New Bag - Prov ider: Dakota Barajas RN - Comment: KVO 7 tongan sheath LFV)0837 (Rate/Dose Change - Provider: Jimmy Black RN - Comment: KVO/medications 7 tongan shearh LFV)1116 (Stopped - Provider: Jimmy Black RN) traMADol (Ultram) tablet 25 mg (COMPLETED) 25 mg, oral, As needed, pain severe (7-10), first line, pain moderate (4-6), second line, Starting on Fri10/03/23 at 1421, For 1 dose, If ordered PRN for pain, nurse is permitted to administer this medication for higher pain scores based on patient preference? Yes 1518 (Given - Provid er: Princess Marc RN) Scheduled Medication Order 02/16/2024 02/17/2024 02/18/2024 cephalexin (Keflex) capsule 500 mg (COMPLETED) 500 mg, oral, Once, On Fri02/18/24 at 1315, For 1 dose, Suspected Indication (Select all that apply): Urinary Tract Infection, Type of Therapy: Definitive, No Cultures, Type of Urinary Tract Infection: Complicated, Indications: Urinary Tract Infection 1325 (Given - Provid er: Erin Harman RN) dextrose 50 % injection 25 g (COMPLETED) 25 g, intravenous, Once, On Fri02/18/24 at 1310, For 1 dose 1325 (Given - Provid er: Erin Harman RN) ondansetron (Zofran) injection 4 mg (COMPLETED) 4 mg, intravenous, Once, On Fri02/18/24 at 1115, For 1 dose, When administering via IV Push, administer over 3-5 minutes. 1132 (Given - Provid er: Erin Harman RN) sodium chloride 0.9 % bolus 1,000 mL (COMPLETED) 1,000 mL, intravenous, at 999 mL/hr, Administer over 1 Hours, Once, On Fri02/18/24 at 1115, For 1 dose 1131 (New Bag - Prov ider: Erin Harman RN)1234 (Stopped - Provider: Erin Harman RN) FOR RECORDS PERTAINING TO PATIENTS WHO ARE OR HAVE BEEN ENROLLED IN A CHEMICAL DEPENDENCY/SUBSTANCEABUSE PROGRAM, SOME INFORMATION MAY BE OMITTED. This clinical summary was aggregated from multiple sources. Caution should be exercised in using it in the provision of clinical care. This summary normalizes information from multiple sources, and as a consequence, information in this document may materially change the coding, format and clinical context of patient data. In addition, data may be omitted in some cases. CLINICAL DECISIONS SHOULD BE BASED ON THE PRIMARY CLINICAL RECORDS. [facility] [employer] [facility]. provides no warranty or guarantee of the accuracy or completeness of information in this document.
[2024-09-08] VITALS (10 sets, daily range): PULSE 84–110; O2SAT 89–99; BMI 33.9
[2024-09-08 00:24] LABS: Color, Urine Yellow (Yellow); Glucose, Dipstick NEGATIVE (Normal); Ketone-Dipstick 5 mg/dl (Negative); Protein-Dipstick 30 mg/dl (Negative); Specific Gravity, Urine 1.020 (1.002-1.030); Urine Bilirubin Dipstick Negative (Negative)
[2024-09-08 00:25] LABS: Leukocyte Esterase-Dipstick 500 /ul (Negative); Nitrite-Dipstick Negative (Negative); Occult Blood-Urine 50 /ul (Negative)
--- NOTE | 2024-09-08 18:26 | OB.TRI.NOTE ---
HPI - General General Date of Admission: 09/07/24 Date of Service: 09/07/24 Chief Complaint: ctx HPI Narrative KEAGAN ALICIA, is a 23 F who presents c/o ctxs. Denies VB/LOF. Good FM. Seen in office 09/08 and had US that demonstrated PACs of fetus. Maternal Data Information LUZ Calculator Estimated Delivery Date Method Current WG Current Estimate 10/13/24 Manual 35w 0d PFSH PFSH Medical History (Updated 09/08/24 @ 18:[address] Yamila Ballard MD) Pulmonary embolism Anxiety depression Depression Home Medications ?Medication ?Instructions ?Recorded ?Last Taken ?Type vit no.95-ferrous 1 tab PO DAILY 11/12/22 09/08/24 History fumarate 28 mg-folic acid 800 mcg tablet () aspirin 81 mg capsule 81 mg PO DAILY 09/08/24 09/08/24 History metoprolol succinate 25 mg 25 mg PO BID SVT 09/08/24 09/08/24 History tablet,extended release 24 hr Allergy/AdvReac Type Severity Reaction Status Date / Time latex AdvReac Mild Itching Verified 09/08/24 00:35 Family History Father Drug abuse Surgical History (Updated 07/02/23 @ 00:03 by Background Cherelle) Hx of cholecystectomy History of tonsillectomy and adenoidectomy Social History (Updated 06/24/23 @ 12:[address] Fabián Bob MD) household members: children Smoking Status: Current every day smoker tobacco type: e-cigarettes History Elective abortions Hx Para 1 Spontaneous abortions Hx # Term Pregnancies Ectopic pregnancies Hx # Pregnancies Multiple births # of living children NST FHR Rate Baby A Baseline: 130 Variability:: Moderate Accelerations:: 15 x 15 Decelerations:: None NST Reactive:: Yes Uterine Activity:: q 3-5 min Assessment & Plan (1) High risk multigravida in third trimester: (2) Threatened labor: QUALIFIERS: Trimester: third trimester Qualified Code(s): O47.03 - False labor before 37 completed weeks of gestation, third trimester PLAN: No evidence of active labor. Premature atrial contractions noted on ultrasound in the office on 09/07/2024. Noted today as well. heart tones overall reactive. Follow-up in the office in 1 to 2 days or as needed. kick counts reviewed.
== END 2024-09-08 00:54 | disposition home or self-care (01) ==
LOC: WPOUT 22:55 → WP 22:55
PROVIDERS: PCP Nurse Practitioner Family; Visit Provider Obstetrics & Gynecology
DX: O36.8330 Maternal care for abnormalities of the fetal heart rate or rhythm, third trimester, not applicable or unspecified (principal); O09.93 Supervision of high risk pregnancy, unspecified, third trimester; O99.333 Smoking (tobacco) complicating pregnancy, third trimester; F17.290 Nicotine dependence, other tobacco product, uncomplicated; Z3A.35 35 weeks gestation of pregnancy; Z86.711 Personal history of pulmonary embolism; Z79.82 Long term (current) use of aspirin; Z86.59 Personal history of other mental and behavioral disorders; Z87.59 Personal history of other complications of pregnancy, childbirth and the puerperium
CPT/HCPCS: 59025; 59050; 81002; 87086; 99221; G0378

== ENCOUNTER 2024-09-09 11:09 | Outpatient (CLI) | payer MEDICAID, SELFPAY ==
[2024-09-09 11:20] VITALS: BMI 33.7
[2024-09-09 11:46] VITALS: PULSE 84; RESP 16; TEMP 36.3; O2SAT 96
[2024-09-09 11:48] VITALS: BP 123/71; PULSE 85
[2024-09-09 12:20] LABS: ROM Internal Control Test YES-OK TO RESULT pt. (Internal QC); ROM Patient Test Negative (Negative); Record Kit Lot#, ROM+ K3358
--- NOTE | 2024-09-09 14:51 | OB.TRI.HP_ITS ---
HPI - General General Date of Service: 09/09/24 Chief Complaint: vaginal discharge HPI Narrative KEAGAN ALICIA, is a 23 F who presents complaining of getting out of bed and feeling a large gush of fluid. She states she is still having some watery discharge. She denies any gross vaginal bleeding. She has had good movement. She reports she still having contractions and has been having contractions for the past 2 days. She states they are a little bit worse today. Maternal Data Information LUZ Calculator Estimated Delivery Date Method Current WG Current Estimate 10/13/24 Manual 35w 1d Final LUZ: 10/13/24 Gestational age: 35 02/16 [facility] Medical History (Updated 09/09/24 @ 14:[address] Yamila Ballard MD) Pulmonary embolism Anxiety depression Depression Home Medications ?Medication ?Instructions ?Recorded ?Last Taken ?Type vit no.95-ferrous 1 tab PO DAILY 09/08/24 07:00 History fumarate 28 mg-folic acid 800 mcg 1 TA B tablet () aspirin 81 mg capsule 81 mg PO DAILY 09/08/24 07/ 0 07:00 History 81 mg metoprolol succinate 25 mg 25 mg PO BID SVT 09/08/24 0 09/08/24 20:00 History tablet,extended release 24 hr 25 mg Allergy/AdvReac Type Severity Reaction Status Date / Time latex AdvReac Mild Itching Verified 09/09/24 11:39 Family History Father Drug abuse Surgical History (Updated 07/02/23 @ 00:03 by Cricket Villarreal) Hx of cholecystectomy History of tonsillectomy and adenoidectomy Social History (Updated 06/24/23 @ 12:[address] Fabián Bob MD) household members: children Smoking Status: Current every day smoker tobacco type: e-cigarettes History Elective abortions Hx Para 1 Spontaneous abortions Hx # Term Pregnancies Ectopic pregnancies Hx # Pregnancies Multiple births # of living children Physical Exam Narrative Skin warm dry and intact Abdomen soft nontender nondistended gravid , size appropriate for gestational age Extremities: Trace edema no clubbing or cyanosis Cervix: 1/50/-4, medium consistency and posterior Const alert and no apparent distress General Appearance: cooperative and comfortable NST FHR Rate Baby A Baseline: 140 Variability:: Moderate Accelerations:: 15 x 15 NST Reactive:: Yes FHR Category:: Category I (for > 20 min before d/c) Uterine Activity:: q 4 min ctxs, mild to palpation Assessment & Plan (1) High risk multigravida in third trimester: (2) History of delivery: PLAN: Patient is not in active labor. Reassured patient. Discussed with her return for signs or symptoms of labor.. (3) Threatened labor: QUALIFIERS: Trimester: third trimester Qualified Code(s): O47.03 - False labor before 37 completed weeks of gestation, third trimester PLAN: Patient is having contractions but they are mild and not resulting in cervical change. Sent home with labor precautions, follow-up in the office as scheduled. (4) Vaginal discharge: PLAN: No evidence of rupture of membranes. Physiological discharge on exam, head is ballotable on cervical exam. Reassured patient no evidence of rupture membranes follow-up in the office as scheduled or as needed (5) arrhythmia affecting , antepartum: PLAN: Initially upon admission heart tones were difficult to interpret because of the arrhythmia. However now it is category 1 and reactive. No decelerations noted. Okay to DC home with kick counts and follow-up in the office as scheduled or as needed. Biophysical profile was initially ordered when heart tones were difficult to interpret but is now canceled. Patient had a growth scan earlier this week in the office with normal fluid and LGA fetus. PLAN: Plan When I went into the room to talk with the patient and her support person and review the monitoring strip, I discussed with them that she was not an active labor and would be discharged home. Patient then asked if she could be induced and I discussed with her that we had no medical reason to induce her at 35 weeks and patient asked can you make up a reason?. I d/w her that I cannot and that we would not try to stop spont. active labor but wouldn't induce her or electivly delivery her. 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
== END 2024-09-09 15:07 | disposition home or self-care (01) ==
LOC: WPOUT 11:17 → WP 11:18
PROVIDERS: PCP Nurse Practitioner Family; Referring Provider Advanced Practice Midwife; Visit Provider Advanced Practice Midwife
DX: O47.03 False labor before 37 completed weeks of gestation, third trimester (principal); O09.93 Supervision of high risk pregnancy, unspecified, third trimester; O99.333 Smoking (tobacco) complicating pregnancy, third trimester; F17.290 Nicotine dependence, other tobacco product, uncomplicated; O99.891 Other specified diseases and conditions complicating pregnancy; N89.8 Other specified noninflammatory disorders of vagina; O36.8330 Maternal care for abnormalities of the fetal heart rate or rhythm, third trimester, not applicable or unspecified; Z3A.35 35 weeks gestation of pregnancy; Z79.82 Long term (current) use of aspirin; Z87.59 Personal history of other complications of pregnancy, childbirth and the puerperium; Z86.59 Personal history of other mental and behavioral disorders; Z86.711 Personal history of pulmonary embolism
CPT/HCPCS: 59025; 59050; 84112; 99221; G0378

== ENCOUNTER 2024-09-19 12:37 | Outpatient (CLI) | payer MEDICAID, SELFPAY ==
[2024-09-19 12:43] VITALS: BMI 34.0
--- OUTSIDE RECORDS SUMMARY | 2024-09-19 12:47 | XMS RPT_ITS | CCD ---
Author Organization [facility] Care Team Providers Care Loading Unit Operator Powder Charging Name Role Phone Ruben, Protection Patty Unavailable Unavailable Ruben, Jessica Patty Unavailable Unavailable NOEL, KRISTEL J Unavailable Unavailable NOEL, KRISTEL J Unavailable Unavailable NOEL, KRISTEL J Unavailable Unavailable NOEL, KRISTEL J Unavailable Unavailable NOEL, KRISTEL J Unavailable Unavailable NOEL, KRISTEL J Unavailable Unavailable NOEL, KRISTEL J Unavailable Unavailable NOEL, KRISTEL J Unavailable Unavailable NOEL, KRISETL J Unavailable Unavailable NOEL, KRISTEL J Unavailable Unavailable ORI COBURN Unavailable Unavailable NOEL, KRISTEL J Unavailable Unavailable NOEL, RKISTEL J Unavailable Unavailable NOEL, KRISTEL J Unavailable [...] AUGUST Unavailable Unavailable DUANE WITT Unavailable Unavailable NOLE, KRISTEL J Unavailable Unavailable NOEL, KRISTEL J Unavailable Unavailable NOEL, KRISTEL J Unavailable Unavailable NOEL, KRISTEL J Unavailable Unavailable NOEL, KRISTEL J Unavailable Unavailable NOEL, KRSITEL J Unavailable Unavailable NOEL, KRISTEL J Unavailable [...] Pro vider Dr. Jimmy Sepulveda Attending Provider ZIA JOHNSON Referring Provider [phone] Mauricio Reyes Unavailable Unavailable Mauricio Reyes Attending Unavailable Neelima Dalh MD Primary Care Provider [phone] Unavailable [facility] Provider [facility] Jacob Mackenzie DO Primary Care Provider Queden STEAM FINISHER-SERVICE LEARNING COORDINATOR, Rachell Yoana Primary Care Provid er Queden STEAM FINISHER.SERVICE LEARNING COORDINATOR, Rachell A Primary Care Provider Saturnino Velázquez DO Unavailable Miki Jaramillo MD Unavailable DIPTI FREED Attending [...] Primary Care Unavailable MIKI JARAMILLO Attending Unavailable MELANIA, SATURNINO Gordy Referring Unavailable QUEDEN, RACHELL YOANA Primary Care Unavailable FERNANDES NORIEGA, YULANKA S Referring Unav ailable QUEDEN, RACHELL YOAAN Primary Care Unavailable FERNANDES NOREIGA, YULANKA S Referring Unav ailable QUEDEN, RACHELL YOANA Primary Care Unavailable QUEDEN, RACHELL YOANA Primary Care Unavailable Saturnino Velázquez DO Unavailable Miki Jaramillo MD Unavailable Ramiro Hugo MD Unavailable Queden FLESHING MACHINE OPERATOR-C, Rachell Primary Care Provider Neelima MAN, Dr. Pelletier Attending Provider Dr. Prabhu Ortez MD Referring Provider RAMIRO HUGO Attending Unavailable QUEDEN, RACHELL YOANA Primary Care Unavailable FERNANDES NORIEGA, YULANKA S Referring Unav ailable FERNANDES NORIEGA, YULANKA S Attending Unav ailable QUEDEN, RACHELL YOANA Primary Care Unavailable FERNANDES NORIEGA, YULANKA S Attending Unav ailable QUEDEN, RACHELL YOANA Primary Care Unavailable RAMIRO HUGO Attending Unavailable QUEDEN, RACHELL YOANA Primary Care Unavailable QUEDEN, RACHELL A Attending Unavailable QUEDEN, RACHELL A Primary Care Unavailable PRABHU ORTEZ Referring Unavailable QUEDEN, RACHELL A Primary Care Unavailable QUEDEN, RACHELL A Primary Care Unavailable JAQUELIN ARTEAGA Attending Unavaila ble TORCHIA, NAYELY Referring Unavailable QUEDEN, RACHELL A Primary Care Unavailable TORCHIA, NAYELY Referring Unavailable QUEDEN, RACHELL A Primary Care Unavailable TORCHIA, NAYELY Referring Unavailable QUEDEN, RACHELL A Primary Care Unavailable TORCHIA, NAYELY Referring Unavailable QUEDEN, RACHELL A Primary Care Unavailable Elio MAN, Dr. Driscoll Attending Provider Jaquelin Hi CNM Attending Provider [phone] Jaquelin Hi CNM Referring Provider [phone] Unavailable Primary Care Provider Unavailabl e NO, PHYSICIAN Primary Care Unavailable WILNER, JULIANE A. Attending Unavailable WILNER, JULIANE A. Admitting Unavailable ROBIN, RIO Referring Unavailable ROBIN, RIO Attending Unavailable ROBIN, RIO Admitting Unavailable QUEDEN, RACHELL A Primary Care Unavailable NEELIMA, KARMON Referring Unavailable QUEDEN, RACHELL A Primary Care Unavailable NEELIMA, PRABHU Attending Unavailable QUEDEN, RACHELL A Primary Care Unavailable YAMILA BALLARD Attending Unavailable QUEDEN, RACHELL A Primary Care Unavailable QUEDEN, RACHELL A Primary Care Unavailable NEELIMA, KARMON Referring Unavailable JASMYN BALLARDECCA Attending Unavailable QUEDEN, RACHELL A Primary Care Unavailable NEELIMA KARLUIS Attending Unavailable HI, JAQUELIN Referring Unavailable HI, JAQUELIN Attending Unavailable QUEDEN, RACHELL A Primary Care Unavailable HI, JAQUELIN Referring Unavailable QUEDEN, RACHELL A Primary Care Unavailable HI, JAQUELIN Referring Unavailable QUEDEN, RACHELL A Primary Care Unavailable HI, JAQUELIN Attending Unavailable QUEDEN, RACHELL A Primary Care Unavailable QUEDEN, RACHELL A Primary Care Unavailable LOUISE NAYELY Attending Unavailable HI, JAQUELIN Referring Unavailable QUEDEN, RACHELL A Primary Care Unavailable HI, JAQUELIN Attending Unavailable QUEDEN, RACHELL A Primary Care Unavailable HI, JAQUELIN Attending Unavailable QUEDEN, RACHELL A Primary Care Unavailable HI, JAQUELIN Attending Unavailable QUEDEN, RACHELL A Primary Care Unavailable SANDRA COLE Attending Unavailable QUEDEN, RACHELL A Primary Care Unavailable FAIZA MISHRA Attending Unavailable QUEDEN, RACHELL A Primary Care Unavailable CONOR DUARTE Referring Unavailable NEANDREW MELÉNDEZRE Referring Unavail able QUEDEN, RACHELL A Primary Care Unavailable APRIL DUARTEEL P Attending Unavailable QUEDEN, RACHELL A Primary Care Unavailable NEYHART MELODY MARY JO Attending Unavail able HI, JAQUELIN Attending Unavailable QUEDEN, RACHELL A Primary Care Unavailable QUEDEN, RACHELL A Primary Care Unavailable LOUISE, NAYELY Attending Unavailable BARBI TIAN Attending Unavailable QUEDEN, RACHELL A Primary Care Unavailable GINO VALERO Attending Unavailable QUEDEN, RACHELL A Primary Care Unavailable Queden FLESHING MACHINE OPERATOR, Rachell Primary Care Unavailable Hi, Jaquelin Referring Unavailable Hi, Jaquelin Attending Unavailable Queden FLESHING MACHINE OPERATOR, Rachell Primary Care Unavailable Elio, Yamila Attending Unavailable Queden FLESHING MACHINE OPERATOR, Rachell Primary Care Unavailable Prabhu Ortez Referring Unavailable Prabhu Ortez Attending Unavailable Tatum JESSICA, Rachell Primary Care Unavailable Yamila Ballard Attending Unavailable Yamila Ballard Admitting Unavailable Allergies Allergy Classification Reported Allergen(s) Allergy Type Date of Onset Reaction(s) Facility Latex (3 sources) Latex Substance Allergy [address] [facility] (20 sources) Latex; 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: [LATEX] Drug Allergy 4 Itching [facility] (1 source) Latex Propensity to adverse reactions to drug 4 Itching [facility] (1 source) Latex Drug allergy (disorder) 5 [facility] Repository Medications Current Medications Medication Drug Class(es) Dates [...] on above: Take 1 tablet by [facility]. albuterol 0.83 mg/ml inhalation solution (1 source) beta2-Adrenergic Agonist Start: 10-03-2023 2.5 mg, nebulization, Once as needed, wheezing, Starting on Fri10/03/23 at 1143, For 1 dose, Recovery (only) aspirin 81 mg oral tablet (20 sources) Platelet Aggregation Inhibitor, Nonsteroidal Anti-inflammatory Drug Start: 09-08-2024 take 1 capsule by mouth once daily Aspirin 81 mg capsule Active 81 mg PO DAILY September 08, 2024 12:00am Start: 03-09-2024 take 1 tablet by violette th once daily aspirin, enteric coated (ECOTRIN LOW STRENGTH) 81 mg EC tablet Indications: with uncertain dates, antepartum (HCC) Take 1 tablet by mouth once daily. 90 tablet 3 03/09/2024 Active aspirin 81 MG Ch ew Tab chewable tablet Chew 1 tablet daily. Active calcium chloride 0.0014 meq/ ml / potassium chloride 0.004 meq/ml / sodium chloride 0.103 meq/ml / sodium lactate 0.028 meq/ml injectable solution (4 sources) Start: 09-09-2024 End: 09-09-2024 1,000 mL, Intravenous, ONCE, 1 dose, On Fri09/09/24 at 2115 Start: 10-03-2023 take 100 mL intraven ously every hour [...] infection in mother during first trimester of ([facility]) Take 1 capsule (500 mg) by mouth [...] 500 mg capsule Indications: SVT (supraventricular tachycardia) ([facility] [place] [place]) , Palpitations Take 1 capsule (500 mg) by mouth 2 times a day for 5 days. 10 capsule 10/03/2023 10/08/2023 Active cetirizine hydrochloride 10 mg oral tablet (4 sources) Histamine-1 Receptor Antagonist Start: 06-19-2017 take 1 tablet by mouth once daily cetirizine 10 MG Tab tablet Take 1 tablet by mouth daily. 30 tablet 11 06/19/2017 Active Comment on above: Take 10 mg by mouth. cholestyramine resin 4000 mg powder for oral [...] at 1143, For 1 dose, Recovery (only) docusate sodium 100 mg oral capsule (4 sources) Start: 05-01-2017 take 1 capsule by mouth twice daily docusate (COLACE) 100 MG Cap capsule Take 1 capsule by mouth 2 times daily. 60 capsule 3 05/01/2017 Active Comment on above: Take 100 mg by mouth . fluconazole 150 mg oral tablet (6 sources) Azole Antifungal Start: 09-12-2023 End: 09-12-2023 take 1 tablet by mouth once fluconazole [...] Starting on Fri10/03/23 at 1143, Recovery (only) 24 hr metoprolol succinate 25 mg extended release oral tablet (20 sources) beta-Adrenergic Yanira Start: 09-08-2024 take 1 tablet by mouth twice daily Metoprolol Succinate 25 mg tablet extended release 24 hr Active 25 mg PO TWICE A DAY September 08, 2024 12:00am SVT Start: 07-19-2024 End: 07-19-2025 take 1 tablet [...] mg) by mouth once daily. 15 tablet 11 10/03/2023 01/27/2024 Discontinued (Med List Cleanup) Start: [...] once Quantity: 4 Refills: 0 Ordered: 21-Mar-2021 Ozzie Michaelsn Start: 21-Mar-2021 End: 21-Mar-2021 Generic Substitution Allowed [...] omeprazole 20 mg delayed release oral tablet (20 sources) Proton Pump Inhibitor Start: 07-27-2024 take 1 tablet by mouth every twelve hours as needed Omeprazole Magnesium (PRILOSEC OTC) 20 mg tablet Take 1 tablet by mouth two times a day as needed (heartburn). 60 tablet 3 07/27/2024 Active Start: 05-01-2017 take 1 capsule by [facility] once daily omeprazole [address] capsule Take 1 capsule by mouth daily. 30 capsule 11 05/01/2017 Active Comment on above: Take 40 mg by mouth. ondansetron 4 mg disintegrating oral tablet (20 sources) Serotonin-3 Receptor Antagonist Start: 02-17-19 End: 02-20-19 take 1 tablet by mouth every eight hours for nausea ondansetron ODT (Zofran-ODT) 4 mg disintegrating tablet Indications: Urinary tract infection in mother during first trimester of ([facility]) Dissolve 1 tablet (4 mg) in the [...] Active Start: 06-19-2023 End: 06-19-2023 Starting on Fri06/19/23 at 19 38, For 1 dose, Created by cabinet override When administering via IV Push, administer over 3-5 minutes. Start: 06-18-2023 End: 06-19-2023 4 mg, intravenous, Once, On Fri06/19/23 at 1700, For 1 dose, When administering [...] every 8 hours as needed for Nausea/Vomiting. Source=Surescripts, Medication=ONDANSETRON HCL 4 MG TABLET, Duration=8, Date Last Modified/Filled=06-Jul-2022 ondansetron ODT (Zofran-ODT) disintegrating tablet 4 mg (1 source) Start: take 1 tablet by mouth every eight hours as needed ondansetron ODT (Zofran-ODT) disintegrating tablet 4 mg oseltamivir 75 mg oral capsule (1 source) Neuraminidase Inhibitor Start: 025 End: take 1 capsule by mouth twice [...] ) 28 mg iron- 800 mcg tablet (4 sources) Start: 023 Pnv Cmb#95-Ferrous Fumarate-Fa [ Vit No.95-Ferrous Fumarate 28 Mg-Folic Acid 800 Mcg Tablet] ( Vit No.95-Ferrous Fumarate 28 Mg-Folic ) 28 mg iron- 800 mcg tablet Active 1 {tbl} PO DAILY November 12, 2022 12:00am Start: 11-12-2022 Pnv Cmb#95-Vinod maeve Fumarate-Fa [ Vit No.95-Ferrous Fumarate 28 Mg-Folic [...] gastric irritation. Do not crush or chew. [id number] 6-DHA ORAL (1 source) [id number] 6-DHA ORAL Take by mouth. Active VITAMINS TABLET (1 source) VITAMIN S TABLET ; 1 tab(s) orally once a day Quantity: 0 Refills: 3 Ordered: 12-Jul-2022 Joyce Gonzalez Generic Substitution Allowed Comments: Source=Surescript s, Medication=PRENAT AL VITAMINS TABLET, OriginatingSource =[employer] OriginatingProvid er=BARBI TIAN, Duration=90, Refills=3, Date Last Modified/Filled=12-Apr-2022 Comment on above: Source=Surescripts, Medication= VITAMINS TABLET, OriginatingSource=[employer] OriginatingProvider=BARBI TIAN, Duration=90, Refills=3, Date Last [...] Allowed Comments: Source=Surewandarirobert, Medication=PROMETHAZINE 12.5 MG TABLET, OriginatingSource=[employer] OriginatingProvider=JEWEL DAHL, Duration=15, Refills=6, Date Last Modified/Filled=06-Jul-2022 Comment on above: Source=Surescripts, Medication=PROMETHAZINE 12.5 MG TABLET, OriginatingSource=[employer] OriginatingProvider=JEWEL DAHL, Duration=15, Refills=6, Date Last Modified/Filled=06-Jul-2022 [...] 12/10/2023 Discontinued (Therapy completed) Start: 06-21-2023 End: 07-02-2023 take 2 tablets by mouth twice daily, [...] completed) Start: 06-21-2023 take 2 tablets by mo uth twice daily, then take 1 tablet by [...] tablet 0 06/12/2023 07/02/2023 Discontinued (Side Effects) betamethasone 3 mg/ml / betamethasone acetate 3 mg/ml injectable suspension (1 source) Corticosteroid Start: 09-09-2024 End: 09-10-2024 inject 12 mg by intramuscular injection every twenty-four hours 12 mg, Intramuscular, EVERY 24 HOURS, 2 doses, First dose on Fri09/09/24 at 2115, Last dose on Fri09/10/24 at 2115 cefOXitin 2000 mg injection (1 source) Cephalosporin Antibacterial Start: 06-17-2023 End: 06-17-2023 2 g, intravenous, at 100 mL/hr, Administer over 30 Minutes, Once, On Fri06/17/23 at 0900, For 1 dose, Preprocedure, Duplex bag - activate before hanging., Suspected Indication (Select all that apply): Surgical Prophylaxis colestipol hydrochloride 1000 mg oral tablet (6 [...] Fri06/17/23 at 0900, For 1 dose, Preprocedure 12 hr doxylamine succinate 20 mg / pyridoxine hydrochloride 20 mg extended release oral tablet (3 sources) Start: 03-16-2024 End: 04-07-2024 doxylamine-pyridox ine, vit B6, (BONJESTA) 20-20 mg tablet, delayed [...] scheduled, First dose on Fri06/20/23 at 0230 ferrous sulfate 325 mg oral tablet (20 sources) Start: 11-12-2022 End: 09-08-2024 take 1 tablet by mouth every other day Ferrous Sulfate (Feosol) 325 mg (65 mg iron) tablet Discontinued 325 mg PO EVERY OTHER DAY November 12, 2022 12:00am September 08, 2024 12:35am Start: 06-03-2017 take 1 tablet by violette th once daily ferrous sulfate 325 (65 Fe) MG Tab tablet Indications: Anemia complicating , third trimester Take 1 tablet by mouth daily. 30 tablet 11 06/03/2017 Active Start: 06-03-2017 ferrous sulfat e 325 mg (65 mg iron) tablet Take 325 mg by mouth. 0 06/03/2017 Active End: 06-03-2023 ferrous sulfate (IRON ORAL) Take by mouth. 0 06/03/2023 Discontinued (Course of therapy completed) ferrous sulfate (IRON ORAL) Take by mouth. 0 Active Comment on above: Take 325 mg by mouth . Take by mouth. gabapentin 300 mg oral capsule (20 sources) [...] Discontinued Start: 10-31-2021 take 1 capsule by [facility] twice daily gabapentin (NEURONTIN) 100 mg capsule Take 100 mg by mouth twice daily. 0 10/31/2021 Active take 1 capsule by [facility] three times daily gabapentin (Neurontin) 300 mg capsule Take 1 capsule (300 mg) by mouth 3 times a day. Active Comment on above: Take 100 mg by mouth twice daily. Take 1 capsule by mo ut daily at bedtime for 30 days. 50 ml glucose 500 mg/ml prefilled syringe (1 source) Start: 5 End: 5 25 g, intravenous, Once, On Fri02/18/24 at 1310, For 1 dose Haloperidol (1 source) Typical Antipsychotic Start: 4 End: 4 2 mg, intravenous, Once, On Fri06/20/23 at 0715, For 1 dose, Patients receiving IV haloperidol should be on continuous cardiac monitoring. hydrOXYzine pamoate 25 mg oral capsule (1 source) Antihistamine Start: 5 End: 5 take 1 dose by mouth once 25 mg, Oral, ONCE, 1 dose, On Kimmy 09/09/24 at 2245 ibuprofen 600 mg oral tablet (3 sources) Nonsteroidal Anti-inflammatory Drug Start: 0 take 1 tablet by mouth every six hours as needed ibuprofen (MOTRIN) 600 mg tablet Take 1 tablet by mouth every 6 hours as needed for Pain or Fever. 20 tablet 0 07/19/2019 Active Comment on above: Take 1 tablet by violette th every 6 hours as needed for Pain or Fever. iohexol (OMNIPaque) 350 mg iodine/mL solution 68 mL (2 sources) Start: End: 68 mL, intravenous, Once in imaging, Starting on Fri06/24/23 at 2009, For 1 dose Start: 06-19-2023 End: 06-19-2023 [...] 200 mg, INTRAVENOUS, ONCE, 1 dose, On Fri08/12/24 at 1430, May administer up to 200 [...] 180 tablet 1 07/14/2023 09/18/2023 Discontinued levonorgestrel 0.547046 mg/hr intrauterine system (20 sources) Progestin, Progestin-containi [...] injection (DEPO-PROVERA) Start: 01-30-2023 End: 06-03-2023 medroxyPROGESTERone (DEPO-MS OVERA) 150 mg/mL Inject 1 mL intramuscularly every 12 weeks. 1 mL 4 01/30/2023 06/03/2023 Discontinued (Side Effects) Comment on above: Inject 1 mL intramus cularly every 12 weeks. metoclopramide 10 mg oral tablet (7 sources) Dopamine-2 Receptor Antagonist Start: 025 End: take 1 tablet by mouth every eight hours as needed metoclopramide HCl (REGLAN) 10 mg tablet Take 1 tablet by mouth three times a day as needed. 90 tablet 03/09/2024 03/16/2024 Discontinued (Course of therapy completed) Start: 02-14-2017 take 1 tablet by violette th four times daily as needed for nausea metoclopramide 5 MG Tab tablet Take 1 tablet by mouth 4 times daily as needed for Nausea / Vomiting. 30 tablet 3 02/14/2017 Active Comment on above: Take 5 mg by mouth. mirtazapine 15 mg oral tablet (20 sources) Start: End: take 1 tablet by mouth once daily at bedtime mirtazapine (Remeron) 15 mg tablet Take 1 tablet (15 mg) by mouth once daily at bedtime. 08/07/2023 10/03/2023 Discontinued (Stop Taking at Discharge) nicotine 2 mg oral lozenge (8 sources) Cholinergic Nicotinic Agonist Start: End: 6 Nicotine Polacrilex 2 mg lozenge Indications: Vapes [...] 30 patch 06/25/2023 07/02/2023 Discontinued (Allergic response) NIFEdipine 10 mg oral capsule (1 source) Dihydropyridine Calcium Channel Yanira Start: 09-09-2024 End: 09-09-2024 take 1 dose by mouth once 10 mg, Oral, ONCE, 1 dose, On Kimmy 09/09/24 at 2115 nitrofurantoin, macrocrystals 25 mg / nitrofurantoin, monohydrate 75 mg oral capsule (1 source) Nitrofuran Antibacterial Start: 09-09-2024 End: 09-09-2024 take 1 dose by mouth once 100 mg, Oral, ONCE, 1 dose, On Kimmy 09/09/24 at 2245 predniSONE 20 mg oral tablet (2 sources) [...] intravenous, Continuous, Starting on Fri06/20/23 at 0330 [id number] (Choletec) injection 6 millicurie (1 source) Start: [...] mouth once daily. Take 1 capsule by [facility] once daily. take one tablet krystal y [...] supraventricular tachycardia; 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: [Paroxysmal SVT (supraventricular tachycardia) ([facility])] Onset: 4 07-31-2023 Chronic Coagulation and hemorrhagic disorders (2 sources) Thrombocytopenia, unspecified; 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: [Thrombocytopenia affecting ([facility])] Onset: 5 Chronic Complication of device; implant [...] anemia complicating , third trimester ([facility])] Onset: 5 Episodic Early or threatened labor (20 sources) labor without delivery, third trimester; 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: [ labor without delivery] Onset: 8 Resolved: 3 10-29-2019 Episodic Fetopelvic disproportion; obstruction (4 sources) Shoulder girdle dystocia; 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: [Obstructed labor [...] or unspecified] Onset: 8 Episodic Menopausal disorders (1 source) Menorrhagia; 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: [Excessive bleeding in the premenopausal period] 09-18-2023 Chronic Menstrual disorders (6 sources) Amenorrhea, unspecified; 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: [Menstrual spotting] Onset: 7 04-23-2023 Chronic Miscellaneous mental health disorders (4 sources) depression; 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: [ depression] Onset: 4 04-23-2023 Episodic Mood disorders (20 sources) Depressive disorder; 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: [Depression] Onset: 7 10-08-2016 Chronic Nausea and vomiting (9 sources) Nausea; 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: [Diarrhea and vomiting] Onset: 7 06-19-2023 Episodic OB-related trauma to perineum and vulva (4 sources) First degree perineal laceration; 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: [First degree perineal laceration during delivery] 12-17-2022 Episodic Other aftercare (1 source) Postoperative visit; 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: [Encounter for other specified surgical aftercare] 07-08-2023 Episodic Other aftercare (1 source) Drug therapy finding; 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: [senior care (current) use of anticoagulants] 07-31-2023 Episodic Other aftercare (3 sources) Long-term current use of anticoagulant; 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: [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] 07-02-2023 Episodic Other [...] of urinary tract in , first trimester ([facility])] Onset: 5 Episodic Other complications of (13 sources) High risk ; 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: [Supervision of other high risk pregnancies, first trimester] 03-10-2024 Episodic Other complications of (17 sources) Heartburn; 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: [Other specified related conditions, third trimester] Onset: 5 07-27-2024 Episodic Other complications of (15 sources) Thrombocytopenic disorder; 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: [Other diseases of the blood and blood-forming organs and certain disorders involving the immune mechanism complicating , unspecified trimester] Onset: 5 08-05-2024 Episodic Other complications of (2 sources) Other diseases of the blood and blood-forming organs and certain disorders involving the immune mechanism complicating , unspecified trimester; 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: [Thrombocytopenia affecting (HCC)] Onset: 5 Episodic Other complications of (4 sources) Headache; 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: [Other specified related conditions, unspecified trimester] 08-03-2024 Episodic Other complications of (2 sources) condition affecting obstetrical care of mother; 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: [Maternal care for abnormalities of the heart rate or rhythm, unspecified trimester, not applicable or unspecified] 09-09-2024 Episodic Other complications of (1 source) Supervision of high risk , unspecified, third trimester; 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: [Supervision of high risk in third trimester ([facility])] Onset: 5 Episodic Other complications of (1 source) Supervision of other high risk pregnancies, second trimester; 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: [Supervision of other high risk pregnancies, second trimester ([facility])] Onset: 5 Episodic Other complications of (1 source) Other specified related conditions, third trimester; 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: [Heartburn during , antepartum, third trimester ([facility])] Onset: 5 Episodic Other complications of (1 source) Maternal care for abnormalities of the heart rate or rhythm, third trimester, not applicable or unspecified; 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: [Maternal care for abnormalities of the heart rate or rhythm, third trimester, not applicable or unspecified] Onset: 5 Episodic Other endocrine disorders (1 [...] bleeding] Onset: Chronic Other female genital disorders (3 sources) Abnormal vaginal bleeding; 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: [Abnormal uterine and vaginal bleeding, unspecified] 07-02-2023 Chronic Other female genital disorders (5 sources) H/O: premature delivery; 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: [Personal history of pre-term labor] 12-25-2022 Episodic Other female genital disorders (3 sources) Vaginal discharge; 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: [Other specified noninflammatory disorders of vagina] 11-24-2023 Episodic Other gastrointestinal disorders (1 source) Diarrhea; 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: [Intestinal malabsorption, unspecified] 10-16-2023 Chronic Other gastrointestinal disorders (1 source) Constipation; 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: [Constipation, unspecified] 09-18-2023 Episodic Other gastrointestinal disorders (2 sources) Functional diarrhea; 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: [Functional diarrhea] 09-23-2023 Episodic Other gastrointestinal disorders (1 source) Heartburn; 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: [Heartburn during , antepartum, third trimester ([facility])] Onset: 5 Episodic Other injuries and conditions due to external causes (1 source) Injury of coccyx; 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: [Unspecified injury of lower back, initial encounter] 06-03-2023 Episodic Other screening for suspected conditions (not mental disorders or infectious disease) (3 sources) Cancer cervix screening status; 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: [Encounter for screening for malignant neoplasm of cervix] Onset: 5 03-09-2024 Episodic Polyhydramnios and other problems of amniotic cavity (3 sources) Spontaneous rupture of membranes 12-15-2022 Episodic Residual codes; unclassified (1 source) 16 weeks gestation of ; 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: [16 weeks gestation of ] Onset: Episodic Residual codes; unclassified (4 sources) Gestation period, 34 weeks; 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: [34 weeks gestation of ] 11-19-2022 Episodic Residual codes; unclassified (1 source) Gestation period, 36 weeks; 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: [36 weeks gestation of ] 12-03-2022 Episodic Residual codes; unclassified (4 sources) Gestation period, 38 weeks; 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: [38 [...] 08-24-2024 Episodic Residual codes; unclassified (1 source) Gestation period, 35 weeks; 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: [35 weeks gestation of ] 09-08-2024 Episodic Residual codes; unclassified (1 source) 36 weeks gestation of ; 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: [36 weeks gestation of (HCC)] Onset: 5 Episodic Residual codes; unclassified (1 source) 35 weeks gestation of ; 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: [35 weeks gestation of (HCC)] Onset: 5 Episodic Residual codes; unclassified (1 source) Personal history of other complications of , childbirth and the puerperium; 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: [History of shoulder dystocia in prior ] Onset: 5 Episodic Residual codes; unclassified (1 source) 34 weeks gestation of ; 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: [34 weeks gestation of (HCC)] Onset: 5 Episodic Residual codes; unclassified (1 source) 32 weeks gestation of ; 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: [32 weeks gestation of ([facility])] Onset: 5 Episodic Residual codes; unclassified (1 source) 28 weeks gestation of ; 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: [28 weeks gestation of ([facility])] Onset: 5 Episodic Residual codes; unclassified (1 source) 24 weeks gestation of ; 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: [24 weeks gestation of ([facility])] Onset: 5 Episodic Spondylosis; intervertebral disc disorders; other back [...] [Paroxysmal SVT (supraventricular tachycardia) (HCC)] Onset: 4 Unclassified (3 sources) Contractions; 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: [Contractions] Onset: 5 Past or Other Problems Problem Classification Problem Date Documented Da te Episodic/Chronic Biliary tract disease (20 sources) Gallstone; 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: [Calculus of gallbladder without mention of cholecystitis, without mention of obstruction] Onset: 3 07-12-2022 Episodic Cardiac dysrhythmias (20 sources) Palpitations; 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: [Palpitations] Onset: 4 06-25-2023 Episodic Fluid and electrolyte disorders (1 source) Dehydration; 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: [Dehydration] Onset: 5 Episodic Headache, including migraine (1 source) Headache; 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: [Headache] Onset: 7 Episodic Influenza (1 source) Influenza due to other identified influenza virus with other respiratory manifestations; 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: [Influenza A] Onset: 5 Episodic Intestinal infection (2 sources) Viral intestinal infection, unspecified; 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: [Viral intestinal infection, unspecified] Onset: 8 Episodic Mycoses (1 source) Candidiasis of vagina; 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: [Vaginal yeast infection] Onset: 7 Resolved: 8 07-10-2017 Episodic Normal and/or delivery (20 sources) Encounter for supervision of normal first , first trimester; 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: [Encounter for supervision of normal , unspecified, second trimester] Onset: 7 Resolved: 3 10-29-2019 Episodic Other complications of (4 sources) Uterine size-date discrepancy, first trimester; 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: [Supervision of other high risk pregnancies, unspecified trimester] Onset: 7 Episodic Other complications of (20 sources) RhD negative; 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: [Other specified related conditions, unspecified trimester] Onset: 7 Resolved: 5 10-29-2019 Episodic Other complications of (4 sources) Vomiting of , unspecified; 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: [Unspecified vomiting of , unspecified as to episode of care or not applicable] Onset: 8 Resolved: 8 03-17-2024 Episodic Other complications of (1 source) Other [...] 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: [20 weeks gestation of (HCC)] Onset: 5 Episodic [...] tachycardia, unspecified] Onset: 5 Urinary tract infections (2 sources) Urinary tract infection, site not specified; 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: [Urinary tract infectious disease] Onset: 7 Resolved: 8 07-10-2017 Episodic Results Test Name Value Interpretation Reference Range Facil ity (ROM) Rupture Of Membraneson 09-09-2024 ROM Negative Normal Negative [facility] Comment on above: Result Comment: Amni otic fluid not present indicates No Rupture of Membranes at time of specimen collection. Performed By: #### L [id number] ####[facility] [id number] [place], [address] [facility] 09-09-2024 [facility] Telephone (OBGYWM) KEAGAN ALICIA ([id number]) 4 F Date Time Provider Department 09/09/24 JAQUELIN HI OBGYWM During your visit today, we recorded the following information about you: Tamie Steward LPN 09/09/2024 10:06 AM Signed Ob patient is 35w1d called stating I think my water broke reports a constant dampness pantiess since waking up and stated that bed linens were damp when she woke up and having irregular contractions. Discussed with Jaquelin Hi. Patient was told to go to [facility] for evaluation. Patient is scheduled for a repeat c/s on 10/07. Jaquelin Hi APRN.CNM 09/09/2024 10:32 AM Signed Thank you, Jaquelin Hi APRN.CNM Allergies As of Date: 09/09/2024 Noted Allergy Reaction LATEX 07/02/2023 9 - Itching Date Reviewed: 09/08/2024 Reviewed by: Alisha Jordan LPN - Fully Assessed Reason for Visit: Care [86] Prescriptions as of 09/09/2024 - metoprolol tartrate, short acting, (LOPRESSOR) 25 [...] for nausea/vomiting. Problem List As Of Date 09/09/2024 Noted Resolved Depression [F32.A] 10/08/2016 Generalized anxiety disorder [F41.1] 08/21/2018 33 weeks gestation of [Z3A.33] 02/27/2017 01/30/2023 Antepartum anemia complicating in thi*06/03/2017 Encounter for supervision of normal first pregn*02/27/2017 [...] 07/27/2024 Heartburn during , antepartum, third t*07/27/2024 Thrombocytopenia affecting (HCC) [O99*08/05/2024 Maternal iron deficiency anemia complicating pr*08/05/2024 Encounter Status:Closed by TAMIE STEWARD on 09/09/24 Normal [facility] [place] [facility] No Panel Informationon 09-09 Interpretation and review of laboratory results Abnormal [facility] OB Triage Physician Noteon 0 09-09-2024 OB Triage Physician Note [facility] Medical Records Department [address] [place] [address] OB Triage Physician Note 09/09/24 1451 MR#: [id number] Acct: [id number] Name: KEAGAN ALICIA Rep #: [id number] : 2000 23 From: Yamila Ballard MD PCP: Rachell Amador NP-C Status:REG CLI Y Location: [id number] HPI - General General Date of Service: 09/09/24 Chief Complaint: vaginal discharge HPI Narrative KEAGAN ALICIA, is a 23 F who presents complaining of getting out of bed and feeling a large gush of fluid. She states she is still having some watery discharge. She denies any gross vaginal bleeding. She has had good movement. She reports she still having contractions and has been having contractions for the past 2 days. She states they are a little bit worse today. Maternal Data Information LUZ Calculator Estimated Delivery Date Method Current WG Current Estimate 10/13/24 Manual 35w 1d Final LUZ: 10/13/24 Gestational age: 35 02/16 PFSH [facility] Medical History (Updated 09/09/24 @ 14:[address] Yamila Ballard MD) Pulmonary embolism Anxiety depression Depression Home Medications ???Medication ???Instructions ???Recorded ???Last Taken ???Type vit no.95-ferrous 1 tab PO DAILY 11/12/22 09/08/24 07:00 History fumarate 28 mg-folic acid 800 mcg 1 TAB tablet () aspirin 81 mg capsule 81 mg PO DAILY 09/08/24 09/08/24 0 7:00 History 81 mg metoprolol succinate 25 mg 25 mg PO BID SVT 09/08/24 09/08/24 20:00 History tablet,extended release 24 hr 25 mg Allergy/AdvReac Type Severity Reaction Status Date / Time latex AdvReac Mild Itching Verified 09/09/24 11:39 Family History Father Drug abuse Surgical History (Updated 07/02/23 @ 00:03 by Background Cherelle) Hx of cholecystectomy History of tonsillectomy and adenoidectomy Social History (Updated 06/24/23 @ 12:[address] Fabián Bob MD) household members: children Smoking Status: Current every day smoker tobacco type: e-cigarettes History Elective abortions Hx Para 1 Spontaneous abortions Hx # Term Pregnancies Ectopic pregnancies Hx # Pregnancies Multiple births # of living children Physical Exam Narrative Skin warm dry and intact Abdomen soft nontender nondistended gravid , size appropriate for gestational age Extremities: Trace edema no clubbing or cyanosis Cervix: 1/50/-4, medium consistency and posterior Const alert and no apparent distress General Appearance: cooperative and comfortable NST FHR Rate Baby A Baseline: 140 Variability:: Moderate Accelerations:: 15 x 15 NST Reactive:: Yes FHR Category:: Category I (for > 20 min before d/c) Uterine Activity:: q 4 min ctxs, mild to palpation Assessment Plan (1) High risk multigravida in third trimester: (2) History of delivery: PLAN: Patient is not in active labor. Reassured patient. Discussed with her return for signs or symptoms of labor.. (3) Threatened labor: QUALIFIERS: Trimester: third trimester Qualified Code(s): O47.03 - False labor before 37 completed weeks of gestation, third trimester PLAN: Patient is having contractions but they are mild and not resulting in cervical change. Sent home with labor precautions, follow-up in the office as scheduled. (4) Vaginal discharge: PLAN: No evidence of rupture of membranes. Physiological discharge on exam, head is ballotable on cervical exam. Reassured patient no evidence of rupture membranes follow-up in the office as scheduled or as needed (5) arrhythmia affecting , antepartum: PLAN: Initially upon admission heart tones were difficult to interpret because of the arrhythmia. However now it is category 1 and reactive. No decelerations noted. Okay to DC home with kick counts and follow-up in the office as scheduled or as needed. Biophysical profile was initially ordered when heart tones were difficult to interpret but is now canceled. Patient had a growth scan earlier this week in the office with normal fluid and LGA fetus. PLAN: Plan When I went into the room to talk with the patient and her support person and review the monitoring strip, I discussed with them that she was not an active labor and would be discharged home. Patient then asked if she could be induced and I discussed with her that we had no medical reason to induce her at 35 weeks and patient asked can you make up a reason?. I d/w her that I cannot and that we would not try to stop spont. active labor but wouldn't induce her or electivly delivery her. We reviewed she may have contractions but if they do not result in cervical dilation we would not mold insert changer. 07/31/25 1502 Date (more content not included)... Normal [facility] RAPID TOX SCREEN WITH RELEXo n 09-09-2024 Amphetamine (U) [Mass/Vol] Negative NEGATIVE NG/ML [facility] Comment on above: <500 ng/ml CUTOFF Barbiturates Screen Ql (U) Negative NEGATIVE NG/ML [facility] Comment on above: <200 ng/ml CUTOFF Benzodiazepines Ql (U) Negative NEGATIVE NG/M L [facility] Comment on above: <200 ng/ml CUTOFF Benzoylecgonine Ql (U) Negative NEGATIVE NG/M L [facility] Comment on above: <150 ng/ml CUTOFF Buprenorphine Ql (U) Negative NEGATIVE NG/ML [facility] Comment on above: <10 ng/ml CUTOFF Cannabinoids Screen Ql (U) Negative NEGATIVE NG/ML [facility] Comment on above: <50 ng/ml CUTOFF Fentanyl Negative NEGATIVE NG/ML [facility] Comment on above: 1.0 ng/mL CUTOFF *Unconfirmed Screening Result* Unconfirmed screening results are to be used only for medical treatment purposes. This test has not been approved by the FDA. Methadone+Metabolite Screen Ql (U) Negative NEGATIVE NG/ML [facility] Comment on above: Methadone Metabolite <100 ng/ml CUTOFF Testing performed at [place], [place] [address] Methamphetamine (U) [Mass/Vol] Negative NEGATIVE NG/ML [facility] Comment on above: <500 ng/ml CUTOFF Opiates Screen Ql (U) Negative NEGATIVE NG/ML [facility] Comment on above: <300 ng/ml CUTOFF oxyCODONE Ql (U) Negative NEGATIVE NG/ML [facility] Comment on above: <100 ng/ml CUTOFF Tricyclic antidepressants Screen Ql (U) Negative NEGATIVE NG/ML [facility] Comment on above: <1000 ng/ml CUTOFF [facility] RAPID TOX SCREEN,URINE WITH REFLEXon 09-09-2024 AMPHETAMINE Negative Normal NEGATIVE [facility] Comment on above: Result Comment: <500 ng/ml CUTOFF Performed By: #### R TOXR, UMAC, UMIC #### Testing performed at [address] [address] BARBITURATES Negative Normal NEGATIVE [facility] Comment on above: Result Comment: <200 ng/ml CUTOFF Performed By: #### R TOXR, UMAC, UMIC #### Testing performed at [address] [address] BENZODIAZEPINES Negative Normal NEGATIVE [facility] Comment on above: Result Comment: <200 ng/ml CUTOFF Performed By: #### R TOXR, UMAC, UMIC #### Testing performed at [address] [address] BUPRENORPHINE Negative Normal NEGATIVE [facility] Comment on above: Result Comment: <10 ng/ml CUTOFF Performed By: #### R TOXR, UMAC, UMIC #### [place] [address] CANNABINOIDS Negative Normal NEGATIVE [facility] Comment on above: Result Comment: <50 ng/ml CUTOFF Performed By: #### R TOXR, UMAC, UMIC #### Testing performed at [address] [address] COCAINE Negative Normal NEGATIVE [facility] Comment on above: Result Comment: <150 ng/ml CUTOFF Performed By: #### R TOXR, UMAC, UMIC #### Testing performed at [address] [address] FENTANYL Negative Normal NEGATIVE [facility] Comment on above: Result Comment: 1.0 ng/mL CUTOFF *Unconfirmed Screening Result* Unconfirmed screening results are to be used only for medical treatment purposes. This test has not been approved by the FDA. Performed By: #### R TOXR, UMAC, UMIC #### [place] [address] METHADONE METABOLITE Negative Normal NEGATIVE [facility] Comment on above: Result Comment: Meth adone Metabolite <100 ng/ml CUTOFF Testing performed at [place] [address] Performed By: #### R TOXR, UMAC, UMIC #### [place] [address] METHAMPHETAMINE Negative Normal NEGATIVE [facility] Comment on above: Result Comment: <500 ng/ml CUTOFF Performed By: #### R TOXR, UMAC, UMIC #### [place] [address] OPIATES Negative Normal NEGATIVE [facility] Comment on above: Result Comment: <300 ng/ml CUTOFF Performed By: #### R TOXR, UMAC, UMIC #### [place] [address] OXYCODONE Negative Normal NEGATIVE [facility] Comment on above: Result Comment: <100 ng/ml CUTOFF Performed By: #### R TOXR, UMAC, UMIC #### [place] [address] TRICYCLIC ANTIDEPRESSANTS Negative Normal NEGATIVE [facility] Comment on above: Result Comment: <100 0 ng/ml CUTOFF Performed By: #### R TOXR, UMAC, UMIC #### [place] [address] STREP SCREEN GRP Bon 025 STREP SCREEN GRP B SPECIMEN DESCRIPTION VAGINAL/RECTAL CULTURE NO GROUP B BETA STREP ISOLATED * Result Note: Testing performed at [place] [address] * REPORT STATUS 09/12/2024 * Result Note: FINAL * Normal [facility] Comment on above: Performed By: #### O BSC #### [place] [address] URINALYSIS, MACROon 09-10-19 25 Bilirubin Ql (U) SMALL Abnormal NEGATIVE [facility] Clarity (U) CLOUDY Abnormal CLEAR [facility] Color (U) YELLOW YELLOW [facility] Glucose Test strip (U) [Mass/Vol] Negative NEGATIVE mg/dl [facility] Hemoglobin Ql (U) SMALL Abnormal NEGATIVE [facility] Ketones (U) [Mass/Vol] 15 mg/dL Abnormal NEGATIVE [facility] Leukocyte esterase Test strip Ql (U) TRACE Abnormal NEGATIVE [facility] Nitrite Ql (U) Negative NEGATIVE [facility] [place] [facility] pH (U) 6 [pH] 5.0 - 7.0 [facility] Protein Ql (U) 30 mg/dl Abnormal NEGATIVE [facility] Specific gravity (U) [Rel density] >1.030 High 1.010 - 1.025 [facility] Urobilinogen (U) [Mass/Vol] 0.2 mg/dL [facility] URINE CULTUREon 09-09-2024 Bacteria identified Cx Nom (U) SPECIMEN DESCRIPTION URINE - OTHER CULTURE NO GROWTH 2 DAYS * Result Note: Testing performed at [place] [address] * REPORT STATUS 09/11/2024 * Result Note: FINAL * Normal [facility] Comment on above: Performed By: #### A URNC #### Testing performed at [facility] [address] [place] [address] URINE MACROSCOPICon 09-10-19 25 Bilirubin Ql (U) SMALL Abnormal NEGATIVE [facility] Comment on above: Performed By: #### R TOXR, UMAC, UMIC #### Testing performed at [address] [address] Clarity (U) CLOUDY Abnormal CLEAR [facility] Comment on above: Performed By: #### R TOXR, UMAC, UMIC #### Testing performed at [address] [address] Color (U) YELLOW Normal YELLOW [facility] Comment on above: Performed By: #### R TOXR, UMAC, UMIC #### Testing performed at [address] [address] Glucose Ql (U) Negative Normal NEGATIVE [facility] Comment on above: Performed By: #### R TOXR, UMAC, UMIC #### Testing performed at [address] [address] pH (U) 6.0 [pH] Normal 5.0-7.0 [facility] Comment on above: Performed By: #### R TOXR, UMAC, UMIC #### Testing performed at [address] [address] Protein (U) [Mass/Vol] 30 mg/dL Abnormal NEGATIVE [facility] Comment on above: Performed By: #### R TOXR, UMAC, UMIC #### Testing performed at [address] [address] URINE HEMOGLOBIN SMALL Abnormal NEGATIVE [facility] Comment on above: Performed By: #### R TOXR, UMAC, UMIC #### Testing performed at [address] [address] URINE KETONE 15 mg/dl Abnormal NEGATIVE [facility] Comment on above: Performed By: #### R TOXR, UMAC, UMIC #### [place] [address] URINE LEUKOTEST TRACE Abnormal NEGATIVE [facility] Comment on above: Performed By: #### R TOXR, UMAC, UMIC #### [place] [address] URINE NITRATES Negative Normal NEGATIVE [facility] Comment on above: Performed By: #### R TOXR, UMAC, UMIC #### [place] [address] URINE SPEC GRAVITY >1.030 High 1.010-1.025 [facility] Comment on above: Performed By: #### R TOXR, UMAC, UMIC #### Testing performed at [place] [id number] Urobilinogen Qn (U) 0.2 {Teagan'U}/dL Normal 0.2-1.0 [facility] Comment on above: Performed By: #### R TOXR, UMAC, UMIC #### Testing performed at [address] [address] URINE MICROSCOPICon 09-10-19 25 Bacteria LM.HPF (Urine sed) [#/Area] 2+ Abnormal NEGATIVE [facility] Casts LM.LPF (Urine sed) [#/Area] NONE NONE /LPF [facility] Crystals LM Nom (Urine sed) NONE NONE [facility] Epithelial cells LM Ql (Urine sed) 5 TO 10 /HPF [facility] Mucus Ql (Urine sed) Negative NEGATIVE [facility] RBC LM.HPF (Urine sed) [#/Area] 5 TO 10 NEGATIVE /HPF [facility] Urine sediment comments LM Shemar (Urine sed) REFLEX CULTURE PER ESTABLISHED CRITERIA. [facility] WBC LM.HPF (Urine sed) [#/Area] '5 TO 10 NEGATIVE /HPF [facility] BACTERIA 2+ Abnormal NEGATIVE [facility] Comment on above: Performed By: #### R TOXR, UMAC, UMIC #### Testing performed at [place] [id number] CASTS NONE Normal NONE [facility] Comment on above: Performed By: #### R TOXR, UMAC, UMIC #### Testing performed at [place] [id number] CRYSTAL NONE Normal [facility] Comment on above: Performed By: #### R TOXR, UMAC, UMIC #### [place] [address] Epithelial cells LM Ql (Urine sed) 5 TO 10 Normal [facility] Comment on above: Performed By: #### R TOXR, UMAC, UMIC #### [place] [address] Mucus Ql (Urine sed) Negative Normal NEGATIVE [facility] Comment on above: Performed By: #### R TOXR, UMAC, UMIC #### Testing performed at [address] [address] URINE COMMENT REFLEX CULTURE PER ESTABLISHED CRITERIA. Normal [facility] Comment on above: Performed By: #### R TOXR, UMAC, UMIC #### Testing performed at [address] [address] URINE RBC'S 5 TO 10 Normal NEGATIVE [facility] Comment on above: Performed By: #### R TOXR, UMAC, UMIC #### Testing performed at [address] [address] URINE WBC'S '5 TO 10 Normal NEGATIVE [facility] Comment on above: Performed By: #### R TOXR, UMAC, UMIC #### [place] [address] Urine Cultureon 09-09-2024 URC Culture exhibits no growth. Normal [facility] Comment on above: Performed By: #### M [id number] ####[facility] [id number] [place], [address] OB Triage Physician Noteon 0 09-08-2024 OB Triage Physician Note [facility] Medical Records Department [address] [place] [address] OB Triage Physician Note 09/08/24 1826 MR#: [id number] Acct: [id number] Name: KEAGAN ALICIA Rep #: [id number] : 2000 23 From: Yamila Ballard MD PCP: Z[facility] Status:DEP CLI Y Location: [facility] HPI - General General Date of Admission: 09/07/24 Date of Service: 09/07/24 Chief Complaint: ctx HPI Narrative KEAGAN ALICIA, is a 23 F who presents c/o ctxs. Denies VB/LOF. Good FM. Seen in office 09/08 and had US that demonstrated PACs of fetus. Maternal Data Information LUZ Calculator Estimated Delivery Date Method Current WG Current Estimate 10/13/24 Manual 35w 0d PFSH PFSH Medical History (Updated 09/08/24 @ 18:[address] Yamila Ballard MD) Pulmonary embolism Anxiety depression Depression Home Medications ???Medication ???Instructions ???Recorded ???Last Taken ???Type vit no.95-ferrous 1 tab PO DAILY 11/12/22 09/08/24 History fumarate 28 mg-folic acid 800 mcg tablet () aspirin 81 mg capsule 81 mg PO DAILY 09/08/24 09/08/24 H istory metoprolol succinate 25 mg 25 mg PO BID SVT 09/08/24 09/08/24 History tablet,extended release 24 hr Allergy/AdvReac Type Severity Reaction Status Date / Time latex AdvReac Mild Itching Verified 09/08/24 00:35 Family History Father Drug abuse Surgical History (Updated 07/02/23 @ 00:03 by Background Daemon) Hx of cholecystectomy History of tonsillectomy and adenoidectomy Social History (Updated 06/24/23 @ 12:[address] Fabián Bob MD) household members: children Smoking Status: Current every day smoker tobacco type: e-cigarettes History Elective abortions Hx Para 1 Spontaneous abortions Hx # Term Pregnancies Ectopic pregnancies Hx # Pregnancies Multiple births # of living children NST FHR Rate Baby A Baseline: 130 Variability:: Moderate Accelerations:: 15 x 15 Decelerations:: None NST Reactive:: Yes Uterine Activity:: q 3-5 min Assessment Plan (1) High risk multigravida in third trimester: (2) Threatened labor: QUALIFIERS: Trimester: third trimester Qualified Code(s): O47.03 - False labor before 37 completed weeks of gestation, third trimester PLAN: No evidence of active labor. Premature atrial contractions noted on ultrasound in the office on 09/07/2024. Noted today as well. heart tones overall reactive. Follow-up in the office in 1 to 2 days or as needed. kick counts reviewed. 09/08/241828 Date Yamila Ballard MD Cosigner Signature (if applicable): Date _ CC: FLESHING MACHINE OPERATOR-Gayla Amador; Dr. Yamila Ballard MD Signed Normal [facility] URINE OB DIP B/Oon Glucose Ql (U) Negative Neg mg/dL [facility] Interpretation and review of laboratory results Normal [facility] Protein.monoclonal (U) [Mass/Vol] Negative Neg mg/dL [facility] Urinalysis, Routine (Dipstic k)on 09-08-2024 LEUK ESTERASE 500 /ul Abnormal Negative [facility] Comment on above: Order Comment: COLLE CTOR TO SPECIFY Performed By: #### L 400.2010 #### [facility] [address] [place], [address] Nitrite Ql (U) Negative Normal Negative [facility] Comment on above: Order Comment: LILI CTOR TO SPECIFY Performed By: #### L 400.2010 #### [facility] [address] [place], [address] OCCULT BLOOD-UR 50 /ul Abnormal Negative [facility] Comment on above: Order Comment: LILI CTOR TO SPECIFY Performed By: #### L 400.2010 #### [facility] [address] [place], [address] BILIRUBIN URINE Negative Normal Negative [facility] Comment on above: Order Comment: LILI CTOR TO SPECIFY Performed By: #### L 400.2010 #### [facility] [address] [place], [address] Clarity (U) Cloudy Normal Clear [facility] Comment on above: Order Comment: LILI CTOR TO SPECIFY Performed By: #### L 400.2010 #### [facility] [address] [place], [address] Color (U) Yellow Normal Yellow [facility] Comment on above: Order Comment: LILI CTOR TO SPECIFY Performed By: #### L 400.2010 #### [facility] [address] [place], [address] GLUCOSE, UR Negative Normal Normal [facility] Comment on above: Order Comment: LILI CTOR TO SPECIFY Performed By: #### L 400.2010 #### [facility] [address] [place], [address] KETONE UR 5 mg/dl Abnormal Negative [facility] Comment on above: Order Comment: LILI CTOR TO SPECIFY Performed By: #### L 400.2010 #### [facility] [address] [place], [address] pH UR 6.0 Normal 5.0 - 8.0 [facility] Comment on above: Order Comment: LILI CTOR TO SPECIFY Performed By: #### L 400.2010 #### [facility] [address] [place], [address] PROT DIPSTX 30 mg/dl Abnormal Negative [facility] Comment on above: Order Comment: LILI CTOR TO SPECIFY Performed By: #### L 400.2010 #### [facility] [address] [place], [address] SP.GR. DIPSTX 1.020 Normal 1.002-1.030 [facility] Comment on above: Order Comment: LILI CTOR TO SPECIFY Performed By: #### L 400.2010 #### [facility] [address] [place], [address] UROBILI Normal Normal Normal [facility] Comment on above: Order Comment: LILI CTOR TO SPECIFY Performed By: #### L 400.2010 #### [facility] [address] [place], [address] Bilirubin Test strip Ql (U)O rdered By: Yamila Ballard on 09-07-2024 Bilirubin Ql (U) Negative Negative [facility] Examination level ultrasound on 09-07-2024 [facility] Radiology Study observation (narrative) [facility] Ketones Test strip Ql (U)Ord ered By: Yamila Ballard on 09-07-2024 Ketones Ql (U) 5 mg/dl High Negative [facility] Nitrite Test strip Ql (U)Ord ered By: Yamila Ballard on 09-07-2024 Nitrite Ql (U) Negative Negative [facility] Protein Test strip Ql (U)Ord ered By: Yamila Ballard on 09-07-2024 Protein Ql (U) 30 mg/dl High Negative [facility] URINE OB DIP B/Oon 5 Glucose Ql (U) Negative Neg mg/dL [facility] Interpretation and review of laboratory results Normal [facility] Protein.monoclonal (U) [Mass/Vol] Negative Neg mg/dL [facility] Urine clarityOrdered By: Jasmyn Ballard on 09-07-2024 Clarity (U) Cloudy Clear [facility] Urine color determinationOrd ered By: Yamila Ballard on 09-07-2024 Color (U) Yellow Yellow [facility] Urine glucose detectionOrder ed By: Yamila Ballard on 09-07-2024 Glucose Ql (U) Negative Normal [facility] Urine leukocyte esterase det ection by dipstickOrdered By: Yamila Ballard on 09-07-2024 Leukocyte esterase Test strip Ql (U) 500 /ul High Negative [facility] Urine pHOrdered By: Yamila Ballard on 09-07-2024 pH (U) 6.0 [pH] 5.0 - 8.0 [facility] Urine specific gravity measu rementOrdered By: Yamila Ballard on 09-07-2024 Specific gravity (U) [Rel density] 1.020 1.002-1.030 [facility] Urine urobilinogen measureme ntOrdered By: Yamila Ballard on 09-07-2024 Urobilinogen Ql (U) Normal mg/dl Normal [facility] CBC W Auto Differential pane l (Bld)on 09-04-2024 Basophils (Bld) [#/Vol] 0.03 10*3/uL Normal <0.11 [facility] Comment on above: Order Comment: Speci men Type: BLOOD SPECIMEN Ordering Facility: [facility] Address: [address] [place] [address] Performed By: #### 5 7021-8 #### [facility] CLIA [id number] [address] [place] [address] [place] Basophils/100 WBC (Bld) 0.4 % Normal [facility] Comment on above: Order Comment: Speci men Type: BLOOD SPECIMEN Ordering Facility: [facility] Address: [address] [place] [address] Performed By: #### 5 7021-8 #### [facility] CLIA [id number] [address] [place] [address] [place] Differential cell count method Nom (Bld) Auto Normal [facility] Comment on above: Order Comment: Speci men Type: BLOOD SPECIMEN Ordering Facility: [facility] Address: [address] [place] [address] Performed By: #### 5 7021-8 #### [facility] CLIA [id number] [address] [place] [address] [place] Eosinophils (Bld) [#/Vol] 0.07 10*3/uL Normal <0.46 [facility] Comment on above: Order Comment: Speci men Type: BLOOD SPECIMEN Ordering Facility: [facility] Address: [address] [place] [address] Performed By: #### 5 7021-8 #### [facility] CLIA [id number] [address] [place] [address] [place] Eosinophils/100 WBC (Bld) 0.9 % Normal [facility] Comment on above: Order Comment: Speci men Type: BLOOD SPECIMEN Ordering Facility: [facility] Address: [address] [place] [address] Performed By: #### 5 7021-8 #### [facility] CLIA [id number] [address] [place] [address] [place] Erythrocyte distribution width (RBC) [Ratio] 23.7 % High 11.5-15.0 [facility] Comment on above: Order Comment: Speci men Type: BLOOD SPECIMEN Ordering Facility: [facility] Address: [address] [place] [address] Performed By: #### 5 7021-8 #### [facility] CLIA [id number] [address] [place] [address] [place] Hematocrit (Bld) [Volume fraction] 37.6 % Normal 36.0-46.0 [facility] Comment on above: Order Comment: Speci men Type: BLOOD SPECIMEN Ordering Facility: [facility] Address: [facility] [place] [address] Performed By: #### 5 7021-8 #### [facility] CLIA [id number] [address] [place] [address] [place] Hemoglobin (Bld) [Mass/Vol] 11.8 g/dL Normal 11.5-15.5 [facility] Comment on above: Order Comment: Speci men Type: BLOOD SPECIMEN Ordering Facility: [facility] Address: [address] [place] [address] Performed By: #### 5 7021-8 #### [facility] CLIA [id number] [address] [place] [address] [place] Immature granulocytes (Bld) [#/Vol] 0.10 10*3/uL High <0.10 [facility] Comment on above: Order Comment: Speci men Type: BLOOD SPECIMEN Ordering Facility: [facility] Address: [address] [place] [address] Performed By: #### 5 7021-8 #### [facility] CLIA [id number] [address] [place] [address] [place] Immature granulocytes/100 WBC (Bld) 1.3 % Normal [facility] Comment on above: Order Comment: Speci men Type: BLOOD SPECIMEN Ordering Facility: [facility] Address: [address] [place] [address] Performed By: #### 5 7021-8 #### [facility] CLIA [id number] [address] [place] [address] [place] Lymphocytes (Bld) [#/Vol] 1.46 10*3/uL Normal 1.00-4.00 [facility] Comment on above: Order Comment: Speci men Type: BLOOD SPECIMEN Ordering Facility: [facility] Address: [address] [place] [address] Performed By: #### 5 7021-8 #### [facility] CLIA [id number] [address] [place] [address] [place] Lymphocytes/100 WBC (Bld) 19.6 % Normal [facility] Comment on above: Order Comment: Speci men Type: BLOOD SPECIMEN Ordering Facility: [facility] Address: [address] [place] [address] Performed By: #### 5 7021-8 #### [facility] CLIA [id number] [address] [place], [place] [address] [place] [address] MCH (RBC) [Entitic mass] 27.3 pg Normal 26.0-34.0 [facility] Comment on above: Order Comment: Speci men Type: BLOOD SPECIMEN Ordering Facility: [facility] Address: [address] [place] [address] Performed By: #### 5 7021-8 #### [facility] CLIA [id number] [address] [place], [place] [address] [place] [address] [place] MCHC (RBC) [Mass/Vol] 31.4 g/dL Normal 30.5-36.0 [facility] Comment on above: Order Comment: Speci men Type: BLOOD SPECIMEN Ordering Facility: [facility] Address: [address] [place] [address] Performed By: #### 5 7021-8 #### [facility] CLIA [id number] [address] [place] [address] [place] MCV (RBC) [Entitic vol] 87.0 fL Normal 80.0-100.0 [facility] Comment on above: Order Comment: Speci men Type: BLOOD SPECIMEN Ordering Facility: [facility] Address: [address] [place] [address] Performed By: #### 5 7021-8 #### [facility] CLIA [id number] [address] [place] [address] [place] Monocytes (Bld) [#/Vol] 0.76 10*3/uL Normal <0.87 [facility] Comment on above: Order Comment: Speci men Type: BLOOD SPECIMEN Ordering Facility: [facility] Address: [address] [place] [address] Performed By: #### 5 7021-8 #### [facility] CLIA [id number] [address] [place] [address] Monocytes/100 WBC (Bld) 10.2 % Normal [facility] Comment on above: Order Comment: Speci men Type: BLOOD SPECIMEN Ordering Facility: [facility] Address: [address] [place] [address] Performed By: #### 5 7021-8 #### [facility] CLIA [id number] [address] [place] [address] [place] Neutrophils (Bld) [#/Vol] 5.04 10*3/uL Normal 1.45-7.50 [facility] Comment on above: Order Comment: Speci men Type: BLOOD SPECIMEN Ordering Facility: [facility] Address: [address] [place] [address] Performed By: #### 5 7021-8 #### [facility] CLIA [id number] [address] [place] [address] [place] Neutrophils/100 WBC (Bld) 67.6 % Normal [facility] Comment on above: Order Comment: Speci men Type: BLOOD SPECIMEN Ordering Facility: [facility] Address: [address] [place] [address] Performed By: #### 5 7021-8 #### [facility] CLIA [id number] [address] [place] [address] [place] Nucleated RBC (Bld) [#/Vol] Normal [facility] Comment on above: Order Comment: Speci men Type: BLOOD SPECIMEN Ordering Facility: [facility] Address: [address] [place] [address] Performed By: #### 5 7021-8 #### [facility] CLIA [id number] [address] [place] [address] [place] Nucleated RBC/100 WBC (Bld) [Ratio] Normal [facility] Comment on above: Order Comment: Speci men Type: BLOOD SPECIMEN Ordering Facility: [facility] Address: [address] [place] [address] Performed By: #### 5 7021-8 #### [facility] CLIA [id number] [address] [place] [address] [place] Platelet mean volume (Bld) [Entitic vol] 12.5 fL Normal 9.0-12.7 [facility] Comment on above: Order Comment: Speci men Type: BLOOD SPECIMEN Ordering Facility: [facility] Address: [address] [place] [address] Performed By: #### 5 7021-8 #### [facility] CLIA [id number] [address] [place] [address] [place] Platelets (Bld) [#/Vol] 146 10*3/uL Low 150-400 [facility] Comment on above: Order Comment: Speci men Type: BLOOD SPECIMEN Ordering Facility: [facility] Address: [address] [place] [address] Result Comment: Resu lts checked and verified.No clot detected.Reviewed. Performed By: #### 5 7021-8 #### [facility] CLIA [id number] [address] [place] [address] [place] RBC (Bld) [#/Vol] 4.32 10*6/uL Normal 3.90-5.20 [facility] Comment on above: Order Comment: Speci men Type: BLOOD SPECIMEN Ordering Facility: [facility] Address: [address] [place] [address] Performed By: #### 5 7021-8 #### [facility] CLIA [id number] [address] [place] [address] [place] WBC (Bld) [#/Vol] 7.46 10*3/uL Normal 3.70-11.00 [facility] Comment on above: Order Comment: Speci men Type: BLOOD SPECIMEN Ordering Facility: [facility] Address: [address] [place] [address] Performed By: #### 5 7021-8 #### [facility] CLIA [id number] [address] [place] [address] [facility] [place] Ferritin SerPl-mCncon 2024 Ferritin [Mass/Vol] 164.0 ng/mL Normal 14.7-205.1 [facility] Comment on above: Order Comment: Speci men Type: BLOOD SPECIMEN Ordering Facility: [facility] Address: [address] [place] [address] Performed By: #### 2 276-4, 93881-2 #### [facility] CLIA [id number] [address] [place] Iron and Iron binding capaci ty panelon 09-04-2024 Iron [Mass/Vol] 68 ug/dL Normal 41-186 [facility] Comment on above: Order Comment: Speci men Type: BLOOD SPECIMEN Ordering Facility: [facility] Address: [address] [place], [place] [address] Performed By: #### 2 276-4, 91009-2 #### [facility] CLIA [id number] [address] [place] Iron binding capacity [Mass/Vol] >568 High 232-386 [facility] Comment on above: Order Comment: Speci men Type: BLOOD SPECIMEN Ordering Facility: [facility] Address: [address] [place] [address] Performed By: #### 2 276-4, 04448-5 #### [facility] CLIA [id number] [address] OF [facility] Iron saturation [Mass fraction] <12.0 Low 15.0-57.0 [facility] Comment on above: Order Comment: Speci men Type: BLOOD SPECIMEN Ordering Facility: [facility] Address: [address] [place] [address] Performed By: #### 2 276-4, 38644-4 #### [facility] CLIA [id number] [address] [place] [address] [place] (ROM) Rupture Of Membraneson 08-03-2024 ROM Negative Normal Negative [facility] Comment on above: Result Comment: Amni otic fluid not present indicates No Rupture of Membranes at time of specimen collection. Performed By: #### L 205.1000 #### [facility] [address] [place], [place], [address] AST(SGOT)Ordered By: Prabhu Ortez on 08-03-2024 AST [Catalytic activity/Vol] 22 U/L Normal <=31 [facility] Comment on above: Performed By: #### L 501.4100, L100.0500, L501.4405, L501.1105, L501.1400, L501.0900 #### [facility] [address] [place], [place], [address] Automated blood erythrocyte countOrdered By: Prabhu Ortez on 08-03-2024 RBC (Bld) [#/Vol] 3.42 10*6/uL Low 4.2-5.4 [facility] Comment on above: Performed By: #### L 501.4100, L100.0500, L501.4405, L501.1105, L501.1400, L501.0900 #### [facility] [address] [place], [place], [address] Automated blood hematocrit ( percentage)Ordered By: Prabhu Ortez on 08-03-2024 Hematocrit (Bld) [Volume fraction] 28.5 % Low 37-47 [facility] Comment on above: Performed By: #### L 501.4100, L100.0500, L501.4405, L501.1105, L501.1400, L501.0900 #### [facility] [address] [place], [place], [address] CBC-Complete Blood Cnt No Di ffon 08-03-2024 RDW SD 42.0 fl Normal 35.1-43.9 [facility] Comment on above: Performed By: #### L 501.4100, L100.0500, L501.4405, L501.1105, L501.1400, L501.0900 #### [facility] [address] [place], [address] ECG 12 lead (Clinic Performe d)on 08-03-2024 Sinus rhythm with HR of 97bpm, QRS 72ms, QT 336ms and [id number] *Please refer to scanned ECG for final report* [facility] Work Phone: Erythrocyte distribution wid th ratioOrdered By: Prabhu Ortez on 08-03-2024 Erythrocyte distribution width (RBC) [Ratio] 13.9 % Normal 11.6-14.6 [facility] Comment on above: Performed By: #### L 501.4100, L100.0500, L501.4405, L501.1105, L501.1400, L501.0900 #### [facility] [address] [place], [place], [address] Erythrocyte distribution wid th standard deviationOrdered By: Prabhu Ortez on 08-03-2024 Erythrocyte distribution width (RBC) [Ratio] 42.0 fl 35.1-43.9 [facility] Glomerular filtration rate ( GFR) estimation/1.73 sq m using serum, plasma, or whole bOrdered By: Prabhu Ortez on 08-03-2024 GFR/1.73 sq M.predicted among non-blacks MDRD (S/P/Bld) [Vol rate/Area] 130 mL/min/{1.73_m2} Normal >60 [facility] Comment on above: mL/min/1.73m2 CKD-EP I Creatinine Equation (2020) Result Comment: mL/m in/1.73m2 CKD-EPI Creatinine Equation (2020) Performed By: #### L 501.4100, L100.0500, L501.4405, L501.1105, L501.1400, L501.0900 #### [facility] [address] [place], [place], [address] Hemoglobin measurementOrdere d By: Prabhu Ortez on 08-03-2024 Hemoglobin (Bld) [Mass/Vol] 8.9 g/dL Low 12.0-15.0 [facility] Comment on above: Performed By: #### L 501.4100, L100.0500, L501.4405, L501.1105, L501.1400, L501.0900 #### [facility] [address] [place], [place], [address] MCV (mean corpuscular volume ) determinationOrdered By: Prabhu Ortez on 08-03-2024 MCV (RBC) [Entitic vol] 83.3 fL Normal 81-99 [facility] Comment on above: Performed By: #### L 501.4100, L100.0500, L501.4405, L501.1105, L501.1400, L501.0900 #### [facility] [address] [place], [address] Mean corpuscular hemoglobin (MCH) determinationOrdered By: Prabhu Ortez on 08-03-2024 MCH (RBC) [Entitic mass] 26.0 pg Low 27.0-32.0 [facility] Comment on above: Performed By: #### L 501.4100, L100.0500, L501.4405, L501.1105, L501.1400, L501.0900 #### [facility] [address] [facility] [place], [place], [address] Mean corpuscular hemoglobin concentration (MCHC) determinationOrdered By: Prabhu Ortez on 08-03-2024 MCHC (RBC) [Mass/Vol] 31.2 g/dL Low 32-36 [facility] Comment on above: Performed By: #### L 501.4100, L100.0500, L501.4405, L501.1105, L501.1400, L501.0900 #### [facility] [address] [place], [place], [address] Mean platelet volume determi nationOrdered By: Prabhu Ortez on 08-03-2024 Platelet mean volume (Bld) [Entitic vol] 12.4 fL High 6.2-12.0 [facility] Comment on above: Performed By: #### L 501.4100, L100.0500, L501.4405, L501.1105, L501.1400, L501.0900 #### [facility] [address] 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 Maternal Data Information LUZ Calculator Estimated Delivery Date Method Current WG Current Estimate 10/13/24 Manual 29w 6d PFSH PFS Medical History (Updated 08/03/24 @ 21:09 by [...] Surgical History (Updated 07/02/23 @ 00:03 by Background Cherelle) Hx of cholecystectomy History of tonsillectomy and [...] Cosigner Signature (if applicable): Date _ CC: FLESHING MACHINE OPERATOR-C Rachell Amador; Dr. Prabhu Ortez MD Signed Normal [facility] Platelet countOrdered By: Georgina Ortez on 08-03-2024 Platelets (Bld) [#/Vol] 124 10*3/uL Low 150-450 [facility] Comment on above: Performed By: #### L 501.4100, L100.0500, L501.4405, L501.1105, L501.1400, L501.0900 #### [facility] [address] [place], [address] Protein+Creatinine Ratio,Uri neon 08-03-2024 PROT:CRE RATIO 191 mg/g CRE Normal 0-200 [facility] Comment on above: Performed By: #### L 501.4100, L100.0500, L501.4405, L501.1105, L501.1400, L501.0900 #### [facility] [address] [place], [address] UR CREAT 65.30 mg/dL Normal 28.00-217.00 [facility] Comment on above: Performed By: #### L 501.4100, L100.0500, L501.4405, L501.1105, L501.1400, L501.0900 #### [facility] [address] [place], [address] Random urine creatinine reynaldo urement (mass/volume)Ordered By: Prabhu Ortez on 08-03-2024 Creatinine Unsp time (U) [Mass/Vol] 65.30 mg/dL 28.00-217.00 [facility] Serum Creatinine AND GFRon 0 08-03-2024 ECRCL 146.29 ml/min Normal 50-250 [facility] Comment on above: Performed By: #### L 501.4100, L100.0500, L501.4405, L501.1105, L501.1400, L501.0900 #### [facility] [address] [facility] [address] Serum creatinine measurement (mass/volume)Ordered By: Prabhu Ortez on 08-03-2024 Creatinine [Mass/Vol] 0.61 mg/dL Low 0.70-1.20 [facility] Comment on above: Performed By: #### L 501.4100, L100.0500, L501.4405, L501.1105, L501.1400, L501.0900 #### [facility] [address] [place], [place], [address] Serum or plasma alanine walker otransferase (ALT) measurementOrdered By: Prabhu Ortez on 08-03-2024 ALT [Catalytic activity/Vol] 12 U/L Normal <=34 [facility] Comment on above: Performed By: #### L 501.4100, L100.0500, L501.4405, L501.1105, L501.1400, L501.0900 #### [facility] [address] [place], [place], [address] Serum or plasma uric acid me asurement (mass/volume)Ordered By: Prabhu Ortez on 08-03-2024 Urate [Mass/Vol] 4.1 mg/dL 2.6-6.0 [facility] Comment on above: The drugs N-Acetylcy steine and Metamizole may falsely depress this assay. Uric Acidon 08-03-2024 URIC 4.1 mg/dL Normal 2.6-6.0 [facility] Comment on above: Result Comment: The drugs N-Acetylcysteine and Metamizole may falsely depress this assay. Performed By: #### L 501.4100, L100.0500, L501.4405, L501.1105, L501.1400, L501.0900 ####[facility] [id number] [place], [place], [address] Urine protein measurement (m ass/volume)Ordered By: Prabhu Ortez on 08-03-2024 Protein (U) [Mass/Vol] 12.5 mg/dL High 0.0-12.0 [facility] Comment on above: Performed By: #### L 501.4100, L100.0500, L501.4405, L501.1105, L501.1400, L501.0900 #### [facility] [address] [place], [address] Urine protein/creatinine mas s ratioOrdered By: Prabhu Ortez on 08-03-2024 Protein/Creatinine (U) [Mass ratio] 191 mg/g CRE 0-200 [facility] White blood cell (WBC) count Ordered By: Prabhu Ortez on 08-03-2024 WBC (Bld) [#/Vol] 7.1 10*3/uL Normal 4.4-11.0 [facility] Comment on above: Performed By: #### L 501.4100, L100.0500, L501.4405, L501.1105, L501.1400, L501.0900 #### [facility] [address] [place], [place], [id number] CNPSharlene 07-28-2024 CNPN Telephone (OGFVWE) KEAGAN ALICIA ([id number]) 4 F Date Time Provider Department 07/28/24 NURSE HAM PASSER FRW WEE[place]WKEN OGFVWE During your visit today, we recorded the following information about you: oJsefa Ricks RN 07/28/2024 8:33 AM Signed 3rd [...] Status:Closed by JOSEFA RICKS on 07/28/24 Normal [facility] CBC W Auto Differential pane l (Bld)on 07-27-2024 Basophils (Bld) [#/Vol] 0.04 10*3/uL Normal <0.11 [facility] Comment on above: Order Comment: Speci men Type: BLOOD SPECIMENOrdering Facility: [facility] Address: [address] [place] [address] Performed By: #### 5 7021-8 ####[facility] HOSPITALDIEGO [id number] [place] [address] [place] Basophils/100 WBC (Bld) 0.5 % Normal C [facility] Comment on above: Order Comment: Speci men Type: BLOOD SPECIMENOrdering Facility: [facility] Address: [address] [place] [address] Performed By: #### 5 7021-8 ####[facility]PITALNCNELLA [id number] [place] [address] [place] Differential cell count method Nom (Bld) Auto Normal [facility] Comment on above: Order Comment: Speci men Type: BLOOD SPECIMENOrdering Facility: [facility] Address: [address] [place] [address] Performed By: #### 5 7021-8 ####[facility]ITALNCBE[facility] [id number] [place] [address] [place] Eosinophils (Bld) [#/Vol] 0.17 10*3/uL Normal <0.46 [facility] Comment on above: Order Comment: Speci men Type: BLOOD SPECIMENOrdering Facility: [facility] Address: [address] [place] [address] Performed By: #### 5 7021-8 ####[facility] [id number] [place] [address] [place] Eosinophils/100 WBC (Bld) 2.0 % Normal [facility] Comment on above: Order Comment: Speci men Type: BLOOD SPECIMENOrdering Facility: [facility] Address: [address] [place] [address] Performed By: #### 5 7021-8 ####[facility] [id number] [place] [address] [place] Erythrocyte distribution width (RBC) [Ratio] 13.5 % Normal 11.5-15.0 [facility] Comment on above: Order Comment: Speci men Type: BLOOD SPECIMENOrdering Facility: [facility] Address: [address] [place] [address] Performed By: #### 5 7021-8 ####[facility] [id number] [place] [address] [place] Hematocrit (Bld) [Volume fraction] 29.7 % Low 36.0-46.0 [facility] Comment on above: Order Comment: Speci men Type: BLOOD SPECIMENOrdering Facility: [facility] Address: [address] [place] [address] Performed By: #### 5 7021-8 ####[facility] KRISTYLIMANCDIEGO [id number] [place] [address] [place] Hemoglobin (Bld) [Mass/Vol] 9.5 g/dL Low 11.5-15.5 [facility] Comment on above: Order Comment: Speci men Type: BLOOD SPECIMENOrdering Facility: [facility] Address: [address] [place] [address] Performed By: #### 5 7021-8 ####[facility]OSPITALNCMario [id number] [place] [address] [place] Immature granulocytes (Bld) [#/Vol] 0.17 10*3/uL High <0.10 [facility] Comment on above: Order Comment: Speci men Type: BLOOD SPECIMENOrdering Facility: [facility] Address: [address] [place] [address] Performed By: #### 5 7021-8 ####[facility]ITALNCLIA [id number] [place] [address] [place] Immature granulocytes/100 WBC (Bld) 2.0 % Normal [facility] Comment on above: Order Comment: Speci men Type: BLOOD SPECIMENOrdering Facility: [facility] Address: [address] [place] [address] Performed By: #### 5 7021-8 ####[facility]ITALNCLIA [id number] [place] [address] [place] Lymphocytes (Bld) [#/Vol] 1.41 10*3/uL Normal 1.00-4.00 [facility] Comment on above: Order Comment: Speci men Type: BLOOD SPECIMENOrdering Facility: [facility] Address: [address] [place] [address] Performed By: #### 5 7021-8 ####[facility] KRISTYLIMAJAQUIA [id number] [place] [address] [place] Lymphocytes/100 WBC (Bld) 17.0 % Normal [facility] Comment on above: Order Comment: Speci men Type: BLOOD SPECIMENOrdering Facility: [facility] Address: [address] [place] [address] Performed By: #### 5 7021-8 ####[facility]ITALJAQUI [id number] [place] [address] [place] MCH (RBC) [Entitic mass] 26.8 pg Normal 26.0-34.0 [facility] Comment on above: Order Comment: Speci men Type: BLOOD SPECIMENOrdering Facility: [facility] Address: [address] [place] [address] Performed By: #### 5 7021-8 ####[facility] [id number] [place] [address] [place] MCHC (RBC) [Mass/Vol] 32.0 g/dL Normal 30.5-36.0 [facility] Comment on above: Order Comment: Speci men Type: BLOOD SPECIMENOrdering Facility: [facility] Address: [address] [place] [address] Performed By: #### 5 7021-8 ####[facility]ITALRADHALIMario [id number] [place] [address] [place] MCV (RBC) [Entitic vol] 83.7 fL Normal 80.0-100.0 C [facility] Comment on above: Order Comment: Speci men Type: BLOOD SPECIMENOrdering Facility: [facility] Address: [address] [place] [address] Performed By: #### 5 7021-8 ####[facility] HOSPITALNCLI [id number] [place] [address] [place] Monocytes (Bld) [#/Vol] 0.78 10*3/uL Normal <0.87 [facility] Comment on above: Order Comment: Speci men Type: BLOOD SPECIMENOrdering Facility: [facility] Address: [address] [place] [address] Performed By: #### 5 7021-8 ####[facility]OSPITALNCA [id number] [place] [address] [place] Monocytes/100 WBC (Bld) 9.4 % Normal [facility] Comment on above: Order Comment: Speci men Type: BLOOD SPECIMENOrdering Facility: [facility] Address: [address] [place] [address] Performed By: #### 5 7021-8 ####[facility] [id number] [place] [address] [place] Neutrophils (Bld) [#/Vol] 5.73 10*3/uL Normal 1.45-7.50 [facility] Comment on above: Order Comment: Speci men Type: BLOOD SPECIMENOrdering Facility: [facility] Address: [address] [place] [address] Performed By: #### 5 7021-8 ####[facility]ITALA [id number] [place] [address] [place] Neutrophils/100 WBC (Bld) 69.1 % Normal [facility] Comment on above: Order Comment: Speci men Type: BLOOD SPECIMENOrdering Facility: [facility] Address: [address] [place] [address] Performed By: #### 5 7021-8 ####[facility]ITALA [id number] [place] [address] [place] Nucleated RBC (Bld) [#/Vol] 10*3/uL Normal <0.01 [facility] Comment on above: Order Comment: Speci men Type: BLOOD SPECIMENOrdering Facility: [facility] Address: [address] [place] [address] Performed By: #### 5 7021-8 ####[facility] AVEL [id number] [place] [address] [place] Nucleated RBC/100 WBC (Bld) [Ratio] 0.0 /100 WBC Normal [facility] Comment on above: Order Comment: Speci men Type: BLOOD SPECIMENOrdering Facility: [facility] Address: [address] [place] [address] Performed By: #### 5 7021-8 ####[facility]ITALNCDIEGO [id number] [place] [address] [place] Platelet mean volume (Bld) [Entitic vol] 12.0 fL Normal 9.0-12.7 [facility] Comment on above: Order Comment: Speci men Type: BLOOD SPECIMENOrdering Facility: [facility] Address: [address] [place] [address] Performed By: #### 5 7021-8 ####[facility]ITALA [id number] [place] [address] [place] Platelets (Bld) [#/Vol] 150 10*3/uL Normal 150-400 [facility] Comment on above: Order Comment: Speci men Type: BLOOD SPECIMENOrdering Facility: [facility] Address: [address] [place] [address] Result Comment: No c lot detected. Performed By: #### 5 7021-8 ####[facility]ITALNCLIA [id number] [place] [address] [place] RBC (Bld) [#/Vol] 3.55 10*6/uL Low 3.90-5.20 [facility] Comment on above: Order Comment: Speci men Type: BLOOD SPECIMENOrdering Facility: [facility] Address: [address] [place] [address] Performed By: #### 5 7021-8 ####[facility]ITALNCLIA [id number] [place] [address] [place] WBC (Bld) [#/Vol] 8.30 10*3/uL Normal 3.70-11.00 [facility] Comment on above: Order Comment: Speci men Type: BLOOD SPECIMENOrdering Facility: [facility] Address: [address] [place] [address] Performed By: #### 5 7021-8 ####[facility]ITALNCLIA [id number] [place] [address] [place] Ferritin SerPl-mCncon 2024 Ferritin [Mass/Vol] 6.1 ng/mL Low 14.7-205.1 [facility] Comment on above: Order Comment: Speci men Type: BLOOD SPECIMENOrdering Facility: [facility] Address: [address] [place] [address] Performed By: #### 2 276-4, 50518-9 ####[facility] LABCLIA [id number] [place] [address] [place] GESTATIONAL GLUCOSE SCREEN, 1-HOUR, 50 GRAM, NON-FASTINGon 07-27-2024 Glucose [Mass/Vol] 102 mg/dL Normal 74-134 [facility] Comment on above: Order Comment: Speci men Type: BLOOD SPECIMEN [facility] Address: [address] [place] [address] Result Comment: [facility] Congress of Obstetricians and Gynecologists (Ricki/Laurent) guidelines state a gestational diabetes mellitus positive screen is made, in women not previously diagnosed with overt diabetes, when the 1 hr plasma glucose level is equal to or above 140 mg/dL. The [facility] [employer] Student Coordinator and Women's Health Gamaliel recommends a 135 mg/dL cutoff. Performed By: #### 7 3752-8, 35876-9, 5195-3 #### [facility] CLIA [id number] [address] [place] [address] [place] Iron and Iron binding capaci ty panelon 07-27-2024 Iron [Mass/Vol] 35 ug/dL Low 41-186 [facility] Comment on above: Order Comment: Speci men Type: BLOOD SPECIMENOrdering Facility: [facility] Address: [address] [place] [address] Performed By: #### 2 276-4, 45116-4 ####[facility] LABCLIA [id number] [place] [address] [place] Iron binding capacity [Mass/Vol] >535 High 232-386 [facility] Comment on above: Order Comment: Speci men Type: BLOOD SPECIMENOrdering Facility: [facility] Address: [address] [place] [address] Performed By: #### 2 276-4, 81919-3 ####[facility] LABCLIA [id number] [place] [address] [place] Iron/TIBC [Molar ratio] <6.5 Low 15.0-57.0 C [facility] Comment on above: Order Comment: Speci men Type: BLOOD SPECIMENOrdering Facility: [facility] Address: [address] [place] [address] Performed By: #### 2 276-4, 09037-6 ####[facility] LABCLIA [id number] [place] [address] [place] Reagin and Treponema pallidu m IgG and IgM [Interp]on 07-27-2024 T. pallidum IgG+IgM IA Ql (S) Non-Reactive Normal Nonreactive [facility] Comment on above: Order Comment: Speci men Type: BLOOD SPECIMEN [facility] Address: [address] [place] [address] Performed By: #### 7 3752-8, 57066-7, 5195-3 #### [facility] CLIA [id number] [address] [place] [address] [place] Reagin+T pallidum IgG+IgM Se rPl-Impon 07-27-2024 Reagin and Treponema pallidum IgG and IgM [Interp] Cannot exclude recent Treponemal infection if specimen collected within 7-10 days after appearance of suspect lesions or 2-3 weeks after an exposure. Clinical correlation is required. Normal [facility] Comment on above: Order Comment: Speci men Type: BLOOD SPECIMEN [facility] Address: [address] [place] [address] Performed By: #### 7 3752-8, 98102-6, 5-3 #### [facility] CLIA [id number] [address] [place] [address] [place] TYPE + SCREEN PRENATALon ABO A Normal [facility] Comment on above: Order Comment: Speci men Type: BLOOD SPECIMEN [facility] Address: [address] [place] [address] Performed By: #### 7 3752-8, 33516-2, 5194-3 #### [facility] CLIA [id number] [address] [place] [address] [place] Rh Nom (Bld) Negative Normal [facility] Comment on above: Order Comment: Speci men Type: BLOOD SPECIMEN [facility] Address: [address] [place] [address] Performed By: #### 7 3752-8, 30492-6, 5194-3 #### [facility] CLIA [id number] [address] [place] [address] [place] TYPE AND SCREEN EXPIRATION 07/30/2024 23:59 Normal [facility] Comment on above: Order Comment: Speci men Type: BLOOD SPECIMEN [facility] Address: [address] [place] [address] Performed By: #### 7 3752-8, 40804-0, 5194-3 #### [facility] CLIA [id number] [address] [place] [address] [place] 06-02-2024 CNPN Telephone (OGFVWE) KEAGAN ALICIA ([id number]) 4 F Date Time Provider Department 06/02/24 NURSE HAM PASSER FRVW [place] OGFVWE During your visit today, we recorded the following information about you: Josefa Ricks, RN 06/02/2024 8:53 AM Signed 2nd risk [...] Status:Closed by JOSEFA RICKS on 06/02/24 Normal [facility] Examination level ultrasound on 06-01-2024 [...] AC, BPD, Femur, HC GA by U/S 22 w + 0 d LUZ by U/S: [...] 1 oz EFW by: Hadlock (HC-AC-FL) Extended Shoe Clerk 5.6 mm CM 3.4 mm 5% Nicolaides [...] normal LVOT view: normal 3-vessel view: normal 2-oxaric-nlcwals view: normal Heart / Thorax Situs: situs [...] MATERNAL MEDICINE [facility] Radiology Study observation (narrative) [facility] 05-10-2024 CNPN Telephone (OBGYWM) KEAGAN ALICIA ([id number]) 4 F Date Time Provider Department 05/10/24 PRABHU ORTEZ OBGYWM During your visit today, we recorded the following information about you: Chantelle Marquis, KELLI 05/10/2024 8:51 AM Signed Received breast pump RX from [employer]. To KJ to sign. KELLI Barrios Lindsey, RN 05/11/2024 [...] Status:Closed by ANTIONETTE WARD on 05/11/24 Normal [facility] CARRIER SCREEN, STANDARDon 0 04-07-2024 CARRIER SCREEN RESULTS View results in Scanned Documents link when available. Normal [facility] Comment on above: Order Comment: Speci men Type: BLOOD SPECIMEN [facility] Address: [address] [place] [address] Performed By: #### 7 3752-8, 77523-6, 5195-3 #### [facility] CLIA [id number] [address] [place] [address] [place] [id number] [place] CBC W Auto Differential pane l (Bld)on 04-07-2024 Basophils (Bld) [#/Vol] 10*3/uL Normal <0.11 C [facility] Comment on above: Order Comment: Speci men Type: BLOOD SPECIMENOrdering Facility: [facility] Address: [address] [place] [address] Performed By: #### 5 7021-8 ####[facility] [id number] [place] [address] [place] Basophils/100 WBC (Bld) 0.4 % Normal C [facility] Comment on above: Order Comment: Speci men Type: BLOOD SPECIMENOrdering Facility: [facility] Address: [address] [place] [address] Performed By: #### 5 7021-8 ####[facility] [id number] [place] [address] [place] Differential cell count method Nom (Bld) Auto Normal [facility] Comment on above: Order Comment: Speci men Type: BLOOD SPECIMENOrdering Facility: [facility] Address: [address] [place] [address] Performed By: #### 5 7021-8 ####[facility] HOSPITALLIA [id number] [place] [address] [place] Eosinophils (Bld) [#/Vol] 0.13 10*3/uL Normal <0.46 [facility] Comment on above: Order Comment: Speci men Type: BLOOD SPECIMENOrdering Facility: [facility] Address: [address] [place] [address] Performed By: #### 5 7021-8 ####[facility] HOSPITALLIA [id number] [place] [address] [place] Eosinophils/100 WBC (Bld) 2.7 % Normal [facility] Comment on above: Order Comment: Speci men Type: BLOOD SPECIMENOrdering Facility: [facility] Address: [address] [place] [address] Performed By: #### 5 7021-8 ####[facility] AVEL [id number] [place] [address] [place] Erythrocyte distribution width (RBC) [Ratio] 15.1 % High 11.5-15.0 [facility] Comment on above: Order Comment: Speci men Type: BLOOD SPECIMENOrdering Facility: [facility] Address: [address] [place] [address] Performed By: #### 5 7021-8 ####[facility] KRISTYLIMAANDRES [id number] [place] [address] [place] Hematocrit (Bld) [Volume fraction] 35.5 % Low 36.0-46.0 [facility] Comment on above: Order Comment: Speci men Type: BLOOD SPECIMENOrdering Facility: [facility] Address: [address] [place] [address] Performed By: #### 5 7021-8 ####[facility] KRISTYLIMAANDRES [id number] [place] [address] [place] Hemoglobin (Bld) [Mass/Vol] 12.0 g/dL Normal 11.5-15.5 [facility] Comment on above: Order Comment: Speci men Type: BLOOD SPECIMENOrdering Facility: [facility] Address: [address] [place] [address] Performed By: #### 5 7021-8 ####[facility]ITALRADHALIA [id number] [place] [address] [place] Immature granulocytes (Bld) [#/Vol] 10*3/uL Normal <0.10 [facility] Comment on above: Order Comment: Speci men Type: BLOOD SPECIMENOrdering Facility: [facility] Address: [address] [place] [address] Performed By: #### 5 7021-8 ####[facility] MILLWNCLIA [id number] [place] [address] [place] Immature granulocytes/100 WBC (Bld) 0.2 % Normal [facility] Comment on above: Order Comment: Speci men Type: BLOOD SPECIMENOrdering Facility: [facility] Address: [address] [place] [address] Performed By: #### 5 7021-8 ####[facility] HOSPITALLIA [id number] [place] [address] [place] Lymphocytes (Bld) [#/Vol] 1.48 10*3/uL Normal 1.00-4.00 [facility] Comment on above: Order Comment: Speci men Type: BLOOD SPECIMENOrdering Facility: [facility] Address: [address] [place] [address] Performed By: #### 5 7021-8 ####[facility] [id number] [place] [address] [place] Lymphocytes/100 WBC (Bld) 30.5 % Normal [facility] Comment on above: Order Comment: Speci men Type: BLOOD SPECIMENOrdering Facility: [facility] Address: [address] [place] [address] Performed By: #### 5 7021-8 ####[facility] HOSPITALLIA [id number] [place] [address] [place] MCH (RBC) [Entitic mass] 29.5 pg Normal 26.0-34.0 [facility] Comment on above: Order Comment: Speci men Type: BLOOD SPECIMENOrdering Facility: [facility] Address: [address] [place] [address] Performed By: #### 5 7021-8 ####[facility]ITALNCLIA [id number] [place] [address] [place] MCHC (RBC) [Mass/Vol] 33.8 g/dL Normal 30.5-36.0 [facility] Comment on above: Order Comment: Speci men Type: BLOOD SPECIMENOrdering Facility: [facility] Address: [address] [place] [address] Performed By: #### 5 7021-8 ####[facility]ITALNCBE[facility] [id number] [place] [address] [place] MCV (RBC) [Entitic vol] 87.2 fL Normal 80.0-100.0 C [facility] Comment on above: Order Comment: Speci men Type: BLOOD SPECIMENOrdering Facility: [facility] Address: [address] [place] [address] Performed By: #### 5 7021-8 ####[facility] HOSPITALNCA [id number] [place] [address] [place] Monocytes (Bld) [#/Vol] 0.37 10*3/uL Normal <0.87 [facility] Comment on above: Order Comment: Speci men Type: BLOOD SPECIMENOrdering Facility: [facility] Address: [address] [place] [address] Performed By: #### 5 7021-8 ####[facility]ITALNCLIA [id number] [place] [address] [place] Monocytes/100 WBC (Bld) 7.6 % Normal C [facility] Comment on above: Order Comment: Speci men Type: BLOOD SPECIMENOrdering Facility: [facility] Address: [address] [place], [place] [address] Performed By: #### 5 7021-8 ####[facility]ITALNCLIA [id number] [place] [address] [place] Neutrophils (Bld) [#/Vol] 2.85 10*3/uL Normal 1.45-7.50 [facility] Comment on above: Order Comment: Speci men Type: BLOOD SPECIMENOrdering Facility: [facility] Address: [address] [place] [address] Performed By: #### 5 7021-8 ####[facility] KRISTYLIMAANDRES [id number] [place] [address] [place] Neutrophils/100 WBC (Bld) 58.6 % Normal [facility] Comment on above: Order Comment: Speci men Type: BLOOD SPECIMENOrdering Facility: [facility] Address: [address] [place] [address] Performed By: #### 5 7021-8 ####[facility] [id number] [place] [address] [place] Nucleated RBC (Bld) [#/Vol] 10*3/uL Normal <0.01 [facility] Comment on above: Order Comment: Speci men Type: BLOOD SPECIMENOrdering Facility: [facility] Address: [address] [place] [address] Performed By: #### 5 7021-8 ####[facility] [id number] [place] [address] [place] Nucleated RBC/100 WBC (Bld) [Ratio] 0.0 /100 WBC Normal [facility] Comment on above: Order Comment: Speci men Type: BLOOD SPECIMENOrdering Facility: [facility] Address: [address] [place] [address] Performed By: #### 5 7021-8 ####[facility] [id number] [place] [address] [place] Platelet mean volume (Bld) [Entitic vol] 11.5 fL Normal 9.0-12.7 [facility] Comment on above: Order Comment: Speci men Type: BLOOD SPECIMENOrdering Facility: [facility] Address: [address] [place] [address] Performed By: #### 5 7021-8 ####[facility] FLIPWNCLIA [id number] [place] [address] [place] Platelets (Bld) [#/Vol] 180 10*3/uL Normal 150-400 [facility] Comment on above: Order Comment: Speci men Type: BLOOD SPECIMENOrdering Facility: [facility] Address: [address] [place] [address] Performed By: #### 5 7021-8 ####[facility] [id number] [place] [address] [place] RBC (Bld) [#/Vol] 4.07 10*6/uL Normal 3.90-5.20 [facility] Comment on above: Order Comment: Speci men Type: BLOOD SPECIMENOrdering Facility: [facility] Address: [address] [place] [address] Performed By: #### 5 7021-8 ####[facility] [id number] [place] [address] [place] WBC (Bld) [#/Vol] 4.86 10*3/uL Normal 3.70-11.00 [facility] Comment on above: Order Comment: Speci men Type: BLOOD SPECIMENOrdering Facility: [facility] Address: [address] [place] [address] Performed By: #### 5 7021-8 ####[facility]IT[facility]IA [id number] [place] [address] [place] Examination level ultrasound on 04-07-2024 Indication First trimester anatomic survey Impression REMOTE READ The patient is referred for a first trimester anatomy scan including nuchal translucency measurement as clinically indicated. - Single, live, intrauterine . - [place] rump length measurement is consistent with the [...] view: normal 4-chamber view with color: normal 8-sqrxqo-cmqdkvm view: normal Abdominal cord insertion: normal Stomach: [...] By: Ines Paulino RDMS Read By: Michelle Choe, M.D. MATERNAL MEDICINE [facility] Radiology Study observation (narrative) [facility] HBV surface Ag Ser Qlon 03-14 HBV surface Ag Ql (S) Negative Normal Negative [facility] Comment on above: Order Comment: Kayli moon Type: BLOOD SPECIMEN [facility] Address: [address] [place] [address] Performed By: #### 7 3752-8, 62228-1, 5195-3 #### [facility] CLIA [id number] [address] [place] [address] [place] HCV Ab Ser Qlon 04-07-2024 HCV Ab Ql (S) Negative Normal Negative [facility] Comment on above: Order Comment: Kayli moon Type: BLOOD SPECIMEN [facility] Address: [address] [place] [address] Result Comment: The result suggests no evidence of active infection with Hepatitis C virus. Should recent infection be suspected, repeat testing may be considered 4-6 weeks after this draw. Performed By: #### 7 3752-8, 43111-5, 5195-3 #### [facility] CLIA [id number] [address] [place] [address] [place] HGB ELECTROPHORESIS FOR EVAL (LAB ORDER)on 04-07-2024 Hemoglobin A (Bld) [Mass fraction] 97.7 % Normal 96.2-98.0 [facility] Comment on above: Order Comment: Kayli moon Type: BLOOD SPECIMEN [facility] Address: [address] [place] [address] Performed By: #### 7 3752-8, 49612-6, 5195-3 #### [facility] CLIA [id number] [address] [place] [address] [place] Hemoglobin A2 (Bld) [Mass fraction] 2.3 % Normal 2.0-3.1 [facility] Comment on above: Order Comment: Kayli moon Type: BLOOD SPECIMEN [facility] Address: [address] [place] [address] Performed By: #### 7 3752-8, 19047-1, 5195-3 #### [facility] CLIA [id number] [address] [place] [address] [place] Hemoglobin Unsp Elph (Bld) [Mass fraction] No abnormal hemoglobin identified. Normal No abnormal hemoglobin identified. [facility] Comment on above: Order Comment: Speci men Type: BLOOD SPECIMEN [facility] Address: [address] [place] [address] Performed By: #### 7 3752-8, 38273-3, 5195-3 #### [facility] CLIA [id number] [address] [place] [address] [place] HGB EVALUATION CASCADE INTER Wilfredo 04-07-2024 Hemoglobin pattern (Bld) [Interp] Reviewed by Neelima Yusuf MD Normal [facility] Comment on above: Order Comment: Speci men Type: BLOOD SPECIMEN [facility] Address: [address] [place] [address] Performed By: #### 7 3752-8, 94293-6, 5-3 #### [facility] CLIA [id number] [address] [place] [address] [place] INTERPRETATION (HGB EVAL) Normal [facility] Comment on above: Order Comment: Speci men Type: BLOOD SPECIMEN [facility] Address: [address] [place] [address] Result Comment: Hemo globins were analyzed by capillary electrophoresis and CBC red cell parameters were reviewed. No abnormal hemoglobin is identified. There is a normal hemoglobin capillary electrophoresis pattern. Performed By: #### 7 3752-8, 65918-0, 5195-3 #### [facility] CLIA [id number] [address] [place] [address] [place] HIV 1+2 Ab IA Qlon 5 HIV 1 and 2 Ab IA.rapid Nom (S/P/Bld) Normal [facility] Comment on above: Order Comment: Speci men Type: BLOOD SPECIMEN [facility] Address: [address] [place] [address] Result Comment: Test not indicated. Performed By: #### 7 3752-8, 00002-8, 5194-04 #### [facility] CLIA [id number] [address] [place] [address] [place] HIV 1+2 Ab+HIV1 p24 Ag IA Ql Non-Reactive Normal Nonreactive [facility] Comment on above: Order Comment: Speci men Type: BLOOD SPECIMEN [facility] Address: [address] [place] [address] Performed By: #### 7 3752-8, 12500-7, 5194-04 #### [facility] CLIA [id number] [address] [place] [address] [place] HIV immunoassay testing algorithm interpretation (S/P/Bld) [Interp] Normal [facility] Comment on above: Order Comment: Speci men Type: BLOOD SPECIMEN [facility] Address: [address] [place] [address] Result Comment: No e vidence of HIV-1 or HIV-2 infection. Should recent infection be suspected, repeat testing may be considered 2-3 weeks after this draw. [place] Rev. Code 3701.243(E): This information has been [...] test results or diagnoses. Performed By: #### 7 3752-8, 87148-2, 5194-04 #### [facility] CLIA [id number] [address] [place] [address] [place] HbA1c (Bld)on 04-07-2024 Average glucose Estimated from glycated hemoglobin (Bld) [Mass/Vol] 88 mg/dL Normal [facility] Comment on above: Order Comment: Speci men Type: BLOOD SPECIMENOrdering Facility: [facility] Address: [address] [place] [address] Result Comment: eAG: (Estimated average glucose) is a calculated value from HgbA1c and is billing representative of the average blood glucose level in the last 2-3 month period. Performed By: #### 5 5454-3 ####[facility] LABCLIA [id number] [place] [address] [place] HbA1c (Bld) [Mass fraction] 4.7 % Normal 4.3-5.6 [facility] Comment on above: Order Comment: Kayli men Type: BLOOD SPECIMENOrdering Facility: [facility] Address: [address] [place] [address] Result Comment: Amer ican Diabetes Association guidelines indicate that patients with HgbA1c in the range 5.7-6.4% are at increased risk for development of diabetes, and intervention by lifestyle modification may be beneficial. HgbA1c greater or equal to 6.5% is considered diagnostic of diabetes. Performed By: #### 5 5454-3 ####[facility] LABCLIA [id number] [place] [address] [place] [id number] PLUSon 04-07-2024 Cell-free DNA./Cell-free DNA.total Dosage of chromosome-specific cfDNA (cfDNA) [Molar fraction] 23% Normal [facility] Comment on above: Order Comment: Lindai men Type: BLOOD SPECIMEN [facility] Address: [address] [place] [address] Performed By: #### 7 3752-8, 03194-0, 5195-3 #### [facility] CLIA [id number] [address] [place] [address] [place] Chr 13+18+21+X+Y aneuploidy Dosage of chromosome-specific cfDNA Ql (cfDNA) Negative Normal [facility] Comment on above: Order Comment: Speci men Type: BLOOD SPECIMEN [facility] Address: [address] [place] [address] Performed By: #### 7 3752-8, 23222-0, 5195-3 #### [facility] CLIA [id number] [address] [place] [address] [place] Chr 21 trisomy Dosage of chromosome-specific cfDNA Ql (cfDNA) Negative Normal [facility] Comment on above: Order Comment: Speci men Type: BLOOD SPECIMEN [facility] Address: [address] [place] [address] Performed By: #### 7 3752-8, 49380-0, 5195-3 #### [facility] CLIA [id number] [address] [place] [address] [place] Chr X and Y aneuploidy risk Sequencing Ql (cfDNA) [Interp] Not detected Normal [facility] Comment on above: Order Comment: Speci men Type: BLOOD SPECIMEN [facility] Address: [address] [place] [address] Result Comment: Not Detected Not Detected Performed By: #### 7 3752-8, 63202-9, 5195-3 #### [facility] CLIA [id number] [address] [place] [address] [place] Citation Shemar (Reference lab test) Comment Normal [facility] Comment on above: Order Comment: Speci men Type: BLOOD SPECIMEN [facility] Address: [address] [place] [address] Result Comment: 1. P fay OLEA, et al. Bere Med. 2012;14(3):296-305. 2. Ben BELL, et al. Prenat Diag. 2013;33(6):591-597. 3. Chad C, et al. Clin Chem. 2015 Apr;61(4):608-616. 4. Tania OLEA, et al. Bere Med. 2011;13(11):913-920. 5. ACOG/SMFM Practice Bulletin No. 226, Nov 2019. Performed By: #### 7 3752-8, 74556-9, 5194-3 #### [facility] CLIA [id number] [address] [place] [address] [place] Gestational age Estimated from conception date Carney Normal [facility] Comment on above: Order Comment: Speci men Type: BLOOD SPECIMEN [facility] Address: [address] [place] [address] Performed By: #### 7 3752-8, 93616-4, 5194-3 #### [facility] CLIA [id number] [address] [place] [address] [place] GESTATIONALAGE AGE > OR = 9W Yes Normal [facility] Comment on above: Order Comment: Speci red Type: BLOOD SPECIMEN [facility] Address: [address] [place] [address] Performed By: #### 7 3752-8, 03149-6, 5194-04 #### [facility] CLIA [id number] [address] [place] [address] [place] Laboratory comment Shemar (Report) Comment Normal [facility] Comment on above: Order Comment: Kayli moon Type: BLOOD SPECIMEN [facility] Address: [address] [place] [address] Result Comment: The MaterniT(R) 21 PLUS laboratory-developed test (LDT) analyzes circulating cell-free DNA from a maternal blood sample. This test is used for screening purposes and not diagnostic. Clinical correlation is recommended. Validation data on twin pregnancies is limited and the ability of this test to detect aneuploidy in higher multiple gestations has not yet been validated. Performed By: #### 7 3752-8, 96099-2, 5194-3 #### [facility] CLIA [id number] [address] [place] [address] [place] director of revenue cycle management name Nom (Provider) Comment Normal [facility] Comment on above: Order Comment: Speci men Type: BLOOD SPECIMEN [facility] Address: [address] [place] [address] Result Comment: This specimen showed an expected representation of chromosome 21, 18 and 13 material. Clinical correlation is suggested. Comment Vasyl Rocha MD, PhD, Director, [employer] Performed By: #### 7 3752-8, 57358-5, 5195-3 #### [facility] CLIA [id number] [address] [place] [address] [place] LIMITATIONS OF THE TEST Comment Normal C [facility] Comment on above: Order Comment: Speci men Type: BLOOD SPECIMEN [facility] Address: [address] [place] [address] Result Comment: Santi chacon the results of [...] Xaparin(R), Clexane(R) and Fragmin(R)). Performed By: #### 7 3752-8, 16624-4, 5- #### [facility] CLIA [id number] [address] [place] [address] [place] Monosomy X risk Dosage of chromosome-specific cfDNA Ql (Plasma cell-free+WBC DNA) [Interp] Not detected Normal [facility] Comment on above: Order Comment: Kayli moon Type: BLOOD SPECIMEN [facility] Address: [address] [place] [address] Performed By: #### 7 3752-8, 02275-7, 5194-04 #### [facility] CLIA [id number] [address] [place] [address] [place] [facility] NEGATIVE PREDICTIVE VALUE Note Normal [facility] Comment on above: Order Comment: Kayli moon Type: BLOOD SPECIMEN [facility] Address: [address] [place] [address] Result Comment: The Negative Predictive Value (NPV) for trisomy 21, 18, and 13 is greater than 99%. The NPV for SCA and ESS cannot be calculated as SCA and ESS are only reported when an abnormality is detected. Performed By: #### 7 3752-8, 81975-9, 5- #### [facility] CLIA [id number] [address] [place] [address] [place] PERFORMANCE CHARACTERISTICS Note Normal [facility] Comment on above: Order Comment: Kayli moon Type: BLOOD SPECIMEN [facility] Address: [address], [place] [address] Result Comment: ! Sex ! Accuracy: 99.4% [...] ! ! ! * As reported in [facility] database nstd37 [https://www.ncbi.nlm.nih.gov/dbvar/studies/nstd37/ ] # Estimated Sensitivity. Sensitivity estimated across the observed size distribution of each syndrome [per [facility] nstd37] and across the range of fractions observed in routine clinical NIPT. Actual sensitivity can also be influenced by other factors such as the size of the event, total sequence counts, amplification bias, or sequence bias. ## Carney gestation only. Performed By: #### 7 3752-8, 07440-6, 5195-3 #### [facility] CLIA [id number] [address] [place] [address] [place] POSITIVE PREDICTIVE VALUE N/A Normal [facility] Comment on above: Order Comment: Kayli moon Type: BLOOD SPECIMEN [facility] Address: [address] [place] [address] Performed By: #### 7 3752-8, 23046-3, 5195-3 #### [facility] CLIA [id number] [address] [place] [address] [place] Reference Lab Test Method Comment Normal [facility] Comment on above: Order Comment: Kayli moon Type: BLOOD SPECIMEN [facility] Address: [address] [place] [address] Result Comment: See Notes Circulating cell-free DNA [...] chromosomes 16 and 22. Performed By: #### 7 3752-8, 27073-4, 5-3 #### [facility] CLIA [id number] [address] [place] [address] [place] Service comment (Unsp spec) [Interp] Comment Normal [facility] Comment on above: Order Comment: Speci men Type: BLOOD SPECIMEN [facility] Address: [address] [place] [address] Result Comment: See Notes [employer] is a subsidiary of [employer], using the brand [employer]. This test was developed and its performance characteristics determined by [employer]. It has not been cleared or approved by the Food and Drug Administration. This laboratory is certified under the Clinical Laboratory Improvement Amendments (CLIA) as qualified to perform high complexity clinical laboratory testing and accredited by the [employer] (CAP). If there is future clinical need for adding MaterniT GENOME testing, this specimen will be available until term. [facility] samples will not be retained beyond [address] [facility] patients will have to send a new sample for re-sequencing ([facility] Test Code: 961545). Performed By: #### 7 3752-8, 01911-5, 5194-04 #### [facility] CLIA [id number] [address] [place] [address] [place] Sex Dosage of chromosome-specific cfDNA Nom (cfDNA) Comment Normal [facility] Comment on above: Order Comment: Speci men Type: BLOOD SPECIMEN [facility] Address: [address] [place] [address] Result Comment: Cons istent with Female Performed By: #### 7 3752-8, 39694-2, 5194-04 #### [facility] CLIA [id number] [address] [place], [place] [address] [place] Test performance information Shemar (Unsp spec) Comment Normal [facility] Comment on above: Order Comment: Speci men Type: BLOOD SPECIMEN [facility] Address: [address] [place] [address] Result Comment: The performance characteristics of the MaterniT(R) 21 PLUS laboratory-developed test (LDT) have been determined in a clinical validation study with women at increased risk for chromosomal aneuploidy.[1-4] Performed By: #### 7 3752-8, 41972-7, 5195-3 #### [facility] CLIA [id number] [address] [place] [address] [place] Trisomy 13 risk Dosage of chromosome-specific cfDNA Ql (cfDNA) [Interp] Negative Normal [facility] Comment on above: Order Comment: Speci men Type: BLOOD SPECIMEN [facility] Address: [address] [place] [address] Performed By: #### 7 3752-8, 79721-0, 5195-3 #### [facility] CLIA [id number] [address] [place] [address] OF [place] Trisomy 18 risk Dosage of chromosome-specific cfDNA Ql (Plasma cell-free+WBC DNA) [Interp] Negative Normal [facility] Comment on above: Order Comment: Speci men Type: BLOOD SPECIMEN [facility] Address: [address] [place] [address] Performed By: #### 7 3752-8, 81327-9, 5195-3 #### [facility] CLIA [id number] [address] [place] [address] [place] RBC PARAMETERS FOR HB IDon 0 - Erythrocyte distribution width (RBC) [Ratio] 15.5 % High 11.5-15.0 [facility] Comment on above: Order Comment: Speci men Type: BLOOD SPECIMENOrdering Facility: [facility] Address: [address] [place] [address] Performed By: #### L [id number] ####[facility] [id number] [address] [address] [place] Hematocrit (Bld) [Volume fraction] 38.0 % Normal 36.0-46.0 [facility] Comment on above: Order Comment: Speci men Type: BLOOD SPECIMENOrdering Facility: [facility] Address: [address] [place] [address] Performed By: #### L [id number] ####[facility] [id number] [place] [address] [place] Hemoglobin (Bld) [Mass/Vol] 12.5 g/dL Normal 11.5-15.5 [facility] Comment on above: Order Comment: Speci men Type: BLOOD SPECIMENOrdering Facility: [facility] Address: [address] [place] [address] Performed By: #### L [id number] ####[facility] [id number] [place] [address] [place] MCH (RBC) [Entitic mass] 29.4 pg Normal 26.0-34.0 [facility] Comment on above: Order Comment: Speci men Type: BLOOD SPECIMENOrdering Facility: [facility] Address: [address] [place] [address] Performed By: #### L [id number] ####[facility] [id number] [address] [place] MCHC (RBC) [Mass/Vol] 32.9 g/dL Normal 30.5-36.0 [facility] Comment on above: Order Comment: Speci men Type: BLOOD SPECIMENOrdering Facility: [facility] Address: [address] [place] [address] Performed By: #### L [id number] ####[facility] [id number] [place] [address] [place] MCV (RBC) [Entitic vol] 89.4 fL Normal 80.0-100.0 C [facility] Comment on above: Order Comment: Speci men Type: BLOOD SPECIMENOrdering Facility: [facility] Address: [address] [place] [address] Performed By: #### L [id number] ####[facility] [id number] [place] [address] [place] RBC (Bld) [#/Vol] 4.25 10*6/uL Normal 3.90-5.20 [facility] Comment on above: Order Comment: Speci men Type: BLOOD SPECIMENOrdering Facility: [facility] Address: [address] [place] [address] Performed By: #### L [id number] ####[facility] [id number] [place] [address] [place] RUBELLA IGG ANTIBODYon 04-07 RUBELLA IGG AB, QUAL Positive Normal Positive [facility] Comment on above: Order Comment: Speci men Type: BLOOD SPECIMENOrdering Facility: [facility] Address: [address] [place] [address] Result Comment: The result suggests recent or past exposure to Rubella virus or history of Rubella vaccination. Positive result may also be seen due to presence of passively-transferred antibodies. Please correlate with patient's history. Performed By: #### R [id number] ####[facility] [id number] [place] [address] [place] Reagin and Treponema pallidu m IgG and IgM [Interp]on 04-07-2024 T. pallidum IgG+IgM IA Ql (S) Non-Reactive Normal Nonreactive [facility] Comment on above: Order Comment: Speci men Type: BLOOD SPECIMEN [facility] Address: [address] [place] [address] Performed By: #### 7 3752-8, 09687-9, 5195-3 #### [facility] CLIA [id number] [address] [place] [address] [place] Reagin+T pallidum IgG+IgM Se rPl-Impon 04-07-2024 Reagin and Treponema pallidum IgG and IgM [Interp] Cannot exclude recent Treponemal infection if specimen collected within 7-10 days after appearance of suspect lesions or 2-3 weeks after an exposure. Clinical correlation is required. Normal [facility] Comment on above: Order Comment: Speci men Type: BLOOD SPECIMEN [facility] Address: [address] [place] [address] Performed By: #### 7 3752-8, 22313-3, 5-3 #### [facility] CLIA [id number] [address] [place] [address] [place] [place] TYPE + SCREEN PRENATALon ABO A Normal [facility] Comment on above: Order Comment: Speci men Type: BLOOD SPECIMEN Ordering Facility: [facility] Address: [address] [place] [address] Performed By: #### 7 3752-8, 28343-5, 5194-3 #### [facility] CLIA [id number] [address] [place] [address] [place] Rh Nom (Bld) Negative Normal [facility] Comment on above: Order Comment: Speci men Type: BLOOD SPECIMEN Ordering Facility: [facility] Address: [address] [place] [address] Performed By: #### 7 3752-8, 01899-8, 5194-3 #### [facility] CLIA [id number] [address] [place] [address] [place] TYPE AND SCREEN EXPIRATION 04/10/2024 23:59 Normal [facility] Comment on above: Order Comment: Speci men Type: BLOOD SPECIMEN Ordering Facility: [facility] Address: [address] [place] [address] Performed By: #### 7 3752-8, 03725-4, 5-3 #### [facility] CLIA [id number] [address] [place], [place] [address] [place] CNPNon 03-11-2024 [facility] Telephone ([id number]) KEAGAN ALICIA ([id number]) 4 F Date Time Provider Department 03/11/24 CHANTELLE RODRIGUEZ [id number] During your visit today, we recorded the following information about you: Chantelle Rodriguez RN 03/11/2024 10:56 AM Signed 1st risk assessment form submitted 03/11/2024. Chantelle Rodriguez RN Allergies As of Date: 03/11/2024 Noted Allergy Reaction LATEX 07/02/2023 9 - Itching Date Reviewed: 03/10/2024 Reviewed by: Mitra Camargo RN - Fully Assessed Reason for Visit: [employer] - Other [3602] Cmt: [facility] Prescriptions as of 03/11/2024 - oseltamivir (TAMIFLU) [...] Status:Closed by CHANTELLE RODRIGUEZ on 03/11/24 Normal [facility] BACTERIAL VAGINOSIS NAATon 0 03-10-2024 Interpretation and review of laboratory results Normal [facility] Lactobacillus crispatus+gasseri+jense mendoza + Gardnerella vaginalis + Atopobium vaginae rRNA SHYAM+probe Ql (Vag fld) Not detected Not detected [facility] Bacteria Ur Culton 5 Bacteria identified Cx Nom (U) CULTURE, URINE: No growth (<1,000 CFU/ml) Normal [facility] Comment on above: Performed By: #### 6 30-4 ####[facility]ATORYCLIA [id number] [place] [id number] [place] C. trachomatis+N. gonorrhoea e DNA SHYAM+probe Ql (Unsp spec)on 03-10-2024 C. trachomatis rRNA HSYAM+probe Ql (Unsp spec) Not detected Not detected [facility] Interpretation and review of laboratory results Normal [facility] N. gonorrhoeae rRNA SHYAM+probe Ql (Unsp spec) Not detected Not detected [facility] This FDA-approved assay has been modified to accept rectal swabs self-collected in a healthcare setting. For self-collected rectal swabs, the test was developed and its performance characteristics determined by the [facility]'s [facility] Pathology and Laboratory Medicine [facility] ([facility]). It has not been cleared or approved by the FDA. [facility] is regulated under CLIA as qualified to perform high-complexity testing. This test is used for clinical purposes. It should not be regarded as investigational or for research. [facility] ALMITA/TRICHOMONAS NAATon 0 03-10-2024 C. glabrata RNA SHYAM+probe Ql (Vag fld) Not detected Not detected [facility] Almita sp DNA SHYAM+probe Ql (Vag fld) Not detected Not detected [facility] Comment on above: The Almita species group target includes C. albicans, C. tropicalis, C. parapsilosis, and C. dubliniensis. Interpretation and review of laboratory results Normal [facility] T. vaginalis DNA SHYAM+probe Ql (Unsp spec) Not detected Not detected [facility] CBC W Auto Differential pane l (Bld)on 03-10-2024 Basophils (Bld) [#/Vol] 10*3/uL Normal <0.11 [facility] Comment on above: Order Comment: Speci men Type: BLOOD SPECIMENOrdering Facility: [facility] Address: [address] [place] [address] Performed By: #### 5 7021-8 ####[facility] LABIA [id number] [place] [id number] [facility] Basophils/100 WBC (Bld) 0.4 % Normal [facility] Comment on above: Order Comment: Speci men Type: BLOOD SPECIMENOrdering Facility: [facility] Address: [address] [place] [address] Performed By: #### 5 7021-8 ####[facility] [place] [facility] [id number] [place] [address] [facility] Differential cell count method Nom (Bld) Auto Normal [facility] Comment on above: Order Comment: Speci men Type: BLOOD SPECIMENOrdering Facility: [facility] Address: [address] [place] [address] Performed By: #### 5 7021-8 ####[facility] [place] LABCLIA [id number] [place] [address] [place] Eosinophils (Bld) [#/Vol] 10*3/uL Normal <0.46 [facility] Comment on above: Order Comment: Speci men Type: BLOOD SPECIMENOrdering Facility: [facility] Address: [address] [place] [address] Performed By: #### 5 7021-8 ####[facility] [place] LABCLIA [id number] [place] [address] [facility] Eosinophils/100 WBC (Bld) 0.7 % Normal [facility] Comment on above: Order Comment: Speci men Type: BLOOD SPECIMENOrdering Facility: [facility] Address: [address] [place] [address] Performed By: #### 5 7021-8 ####[facility] [place] [facility]CLIA [id number] [place] [address] [place] Erythrocyte distribution width (RBC) [Ratio] 13.9 % Normal 11.5-15.0 [facility] Comment on above: Order Comment: Speci men Type: BLOOD SPECIMENOrdering Facility: [facility] Address: [address] [place] [address] Performed By: #### 5 7021-8 ####[facility] [place] LABCLIA [id number] [place] [address] [facility] Hematocrit (Bld) [Volume fraction] 38.6 % Normal 36.0-46.0 [facility] Comment on above: Order Comment: Speci men Type: BLOOD SPECIMENOrdering Facility: [facility] Address: [address] [place] [address] Performed By: #### 5 7021-8 ####[facility] [place] LABCLIA [id number] [place] [address] [place] Hemoglobin (Bld) [Mass/Vol] 12.7 g/dL Normal 11.5-15.5 [facility] Comment on above: Order Comment: Speci men Type: BLOOD SPECIMENOrdering Facility: [facility] Address: [address] [place] [address] Performed By: #### 5 7021-8 ####[facility] [place] LABCLIA [id number] [facility] [place] [address] [place] Immature granulocytes (Bld) [#/Vol] 10*3/uL Normal <0.10 [facility] Comment on above: Order Comment: Speci men Type: BLOOD SPECIMENOrdering Facility: [facility] Address: [address] [place] [address] Performed By: #### 5 7021-8 ####[facility] [place] LABCLIA [id number] [place] [address] [place] Immature granulocytes/100 WBC (Bld) 0.0 % Normal [facility] Comment on above: Order Comment: Speci men Type: BLOOD SPECIMENOrdering Facility: [facility] Address: [address] [place] [address] Performed By: #### 5 7021-8 ####[facility] [place] [facility]CLIA [id number] [place] [address] [place] Lymphocytes (Bld) [#/Vol] 0.65 10*3/uL Low 1.00-4.00 [facility] Comment on above: Order Comment: Speci men Type: BLOOD SPECIMENOrdering Facility: [facility] Address: [address] [place] [address] Performed By: #### 5 7021-8 ####[facility] [place] [facility]CLIA [id number] [place] [address] [place] Lymphocytes/100 WBC (Bld) 22.9 % Normal [facility] Comment on above: Order Comment: Speci men Type: BLOOD SPECIMENOrdering Facility: [facility] Address: [address] [place] [address] Performed By: #### 5 7021-8 ####[facility] [place] LABCLIA [id number] [place] [address] [place] MCH (RBC) [Entitic mass] 28.9 pg Normal 26.0-34.0 [facility] Comment on above: Order Comment: Speci men Type: BLOOD SPECIMENOrdering Facility: [facility] Address: [address] [place] [address] Performed By: #### 5 7021-8 ####[facility] [place] LABCLIA [id number] [place] [address] [facility] [place] MCHC (RBC) [Mass/Vol] 32.9 g/dL Normal 30.5-36.0 [facility] Comment on above: Order Comment: Speci men Type: BLOOD SPECIMENOrdering Facility: [facility] Address: [address] [place] [address] Performed By: #### 5 7021-8 ####[facility] LABCLIA [id number] [address] MCV (RBC) [Entitic vol] 87.9 fL Normal 80.0-100.0 [facility] Comment on above: Order Comment: Speci men Type: BLOOD SPECIMENOrdering Facility: [facility] Address: [address] [place] [address] Performed By: #### 5 7021-8 ####[facility] [place] LABCLIA [id number] [place] [address] [facility] Monocytes (Bld) [#/Vol] 0.35 10*3/uL Normal <0.87 [facility] Comment on above: Order Comment: Speci men Type: BLOOD SPECIMENOrdering Facility: [facility] Address: [address] [place] [address] Performed By: #### 5 7021-8 ####[facility] [place] LABCLIA [id number] [facility] [place] [address] [place] Monocytes/100 WBC (Bld) 12.3 % Normal [facility] Comment on above: Order Comment: Speci men Type: BLOOD SPECIMENOrdering Facility: [facility] Address: [address] [place] [address] Performed By: #### 5 7021-8 ####[facility] [place] LABCLIA [id number] [facility] [place] [address] [place] Neutrophils (Bld) [#/Vol] 1.81 10*3/uL Normal 1.45-7.50 [facility] Comment on above: Order Comment: Speci men Type: BLOOD SPECIMENOrdering Facility: [facility] Address: [address] [place] [address] Performed By: #### 5 7021-8 ####[facility] [place] LABCLIA [id number] [place] [address] [place] Neutrophils/100 WBC (Bld) 63.7 % Normal [facility] Comment on above: Order Comment: Speci men Type: BLOOD SPECIMENOrdering Facility: [facility] Address: [address] [place] [address] Performed By: #### 5 7021-8 ####[facility] [place] LABCLIA [id number] [place] [address] [place] Nucleated RBC (Bld) [#/Vol] Normal [facility] Comment on above: Order Comment: Speci men Type: BLOOD SPECIMENOrdering Facility: [facility] Address: [address] [place] [address] Performed By: #### 5 7021-8 ####[facility] [place] LABCLIA [id number] [place] [address] [place] Nucleated RBC/100 WBC (Bld) [Ratio] Normal [facility] Comment on above: Order Comment: Speci men Type: BLOOD SPECIMENOrdering Facility: [facility] Address: [address] [place] [id number] Performed By: #### 5 7021-8 ####[facility] [place] LABCLIA [id number] [place] [address] [place] Platelet mean volume (Bld) [Entitic vol] 12.0 fL Normal 9.0-12.7 [facility] Comment on above: Order Comment: Speci men Type: BLOOD SPECIMENOrdering Facility: [facility] Address: [address] [place] [address] Performed By: #### 5 7021-8 ####[facility] [place] LABCLIA [id number] [place] [address] [place] Platelets (Bld) [#/Vol] 140 10*3/uL Low 150-400 [facility] Comment on above: Order Comment: Speci men Type: BLOOD SPECIMENOrdering Facility: [facility] Address: [address] [place] [address] Performed By: #### 5 7021-8 ####[facility] [place] LABCLIA [id number] [place] [address] [place] RBC (Bld) [#/Vol] 4.39 10*6/uL Normal 3.90-5.20 [facility] Comment on above: Order Comment: Speci men Type: BLOOD SPECIMENOrdering Facility: [facility] Address: [address] [place] [address] Performed By: #### 5 7021-8 ####[facility] [place] LABCLIA [id number] [place] [address] [place] WBC (Bld) [#/Vol] 2.84 10*3/uL Low 3.70-11.00 [facility] Comment on above: Order Comment: Speci men Type: BLOOD SPECIMENOrdering Facility: [facility] Address: [address] [place] [address] Performed By: #### 5 7021-8 ####[facility] [place] LABCLIA [id number] [place] [address] [facility] Comprehensive metabolic 2000 panelon 03-10-2024 Albumin [Mass/Vol] 4.0 g/dL Normal 3.9-4.9 [facility] Comment on above: Order Comment: Speci men Type: BLOOD SPECIMEN [facility] Address: [address] [place] [address] Performed By: #### 2 4323-8 #### [facility] [place] [facility] CLIA [id number] [address] [place] [address] [place] ALP [Catalytic activity/Vol] 53 U/L Normal 34-123 [facility] Comment on above: Order Comment: Speci men Type: BLOOD SPECIMEN [facility] Address: [address] [place] [address] Performed By: #### 2 4323-8 #### [facility] [place] [facility] CLIA [id number] [address] [place], [place] [address] [place] [address] ALT With P-5'-P [Catalytic activity/Vol] 21 U/L Normal 7-38 [facility] Comment on above: Order Comment: Speci men Type: BLOOD SPECIMEN [facility] Address: [address] [place] [address] Performed By: #### 2 4323-8 #### [facility] [place] [facility] CLIA [id number] [address] [place] [address] [facility] Anion gap [Moles/Vol] 14 mmol/L Normal 8-15 [facility] Comment on above: Order Comment: Speci men Type: BLOOD SPECIMEN [facility] Address: [address] [place] [address] Performed By: #### 2 4323-8 #### [facility] [place] [facility] CLIA [id number] [address] [place] [address] [facility] [place] AST With P-5'-P [Catalytic activity/Vol] 22 U/L Normal 13-35 [facility] Comment on above: Order Comment: Speci men Type: BLOOD SPECIMEN [facility] Address: [address] [place] [address] Performed By: #### 2 4323-8 #### [facility] [place] [facility] CLIA [id number] [address] [place] [address] [place] Bilirubin [Mass/Vol] 0.3 mg/dL Normal 0.2-1.3 [facility] Comment on above: Order Comment: Speci men Type: BLOOD SPECIMEN [facility] Address: [address] [place] [address] Performed By: #### 2 4323-8 #### [facility] [place] [facility] CLIA [id number] [address] [place] [address] [place] Calcium [Mass/Vol] 8.7 mg/dL Normal 8.5-10.2 [facility] Comment on above: Order Comment: Speci men Type: BLOOD SPECIMEN [facility] Address: [address] [place] [address] Performed By: #### 2 4323-8 #### [facility] [place] [facility] CLIA [id number] [address] [place] [address] [place] Chloride [Moles/Vol] 98 mmol/L Normal 98-107 [facility] Comment on above: Order Comment: Speci men Type: BLOOD SPECIMEN [facility] Address: [address] [place] [address] Performed By: #### 2 4323-8 #### [facility] [place] [facility] CLIA [id number] [address] [place] [address] [place] CO2 [Moles/Vol] 21 mmol/L Low 22-30 [facility] Comment on above: Order Comment: Speci men Type: BLOOD SPECIMEN [facility] Address: [address] [place] [address] Performed By: #### 2 4323-8 #### [facility] [place] [facility] CLIA [id number] [address] [place] [address] [place] Creatinine [Mass/Vol] 0.57 mg/dL Low 0.58-0.96 [facility] Comment on above: Order Comment: Kayli moon Type: BLOOD SPECIMEN [facility] Address: [address] [place] [address] Performed By: #### 2 4323-8 #### [facility] CLIA [id number] [address] [place] [address] [place] Creatinine and Glomerular filtration rate.predicted panel (S/P/Bld) 133 mL/min/1.73m??? Normal >=60 [facility] Comment on above: Order Comment: Kayli moon Type: BLOOD SPECIMEN [facility] Address: [address] [place] [address] Result Comment: Nick mated Glomerular Filtration Rate [...] GFR. Performed By: #### 2 4323-8 #### [facility] CLIA [id number] [address] [place], [place] [id number] [place] Glucose [Mass/Vol] 77 mg/dL Normal 74-99 [facility] Comment on above: Order Comment: Kayli red Type: BLOOD SPECIMEN [facility] Address: [address] [place] [address] Result Comment: The [place] [employer] (ADA) provides guidance for cutoff [...] Standards of Medical Care in Diabetes 2016, [place] [employer]. Diabetes Care. 2016.39(Suppl 1). Performed By: #### 2 4323-8 #### [facility] [place] [facility] CLIA [id number] [address] [place] [address] [place] Potassium [Moles/Vol] 3.6 mmol/L Low 3.7-5.1 [facility] Comment on above: Order Comment: Speci men Type: BLOOD SPECIMEN [facility] Address: [address] [place] [address] Performed By: #### 2 4323-8 #### [facility] [place] [facility] CLIA [id number] [address] [place] [address] [place] Protein [Mass/Vol] 6.4 g/dL Normal 6.3-8.0 [facility] Comment on above: Order Comment: Speci men Type: BLOOD SPECIMEN [facility] Address: [address] [place] [address] Performed By: #### 2 4323-8 #### [facility] [place] [facility] CLIA [id number] [address] [place] [address] [place] Sodium [Moles/Vol] 133 mmol/L Low 136-144 [facility] Comment on above: Order Comment: Speci men Type: BLOOD SPECIMEN [facility] Address: [address] [place] [address] Performed By: #### 2 4323-8 #### [facility] [place] [facility] CLIA [id number] [address] [place] [address] [place] Urea nitrogen [Mass/Vol] 7 mg/dL Normal 7-21 [facility] Comment on above: Order Comment: Speci men Type: BLOOD SPECIMEN [facility] Address: [address] [place] [address] Performed By: #### 2 4323-8 #### [facility] [place] [facility] CLIA [id number] [address] [place] [address] [facility] ED NOTEon 03-10-2024 ED NOTE HNO ID: [id number] Author: MITRA CAMARGO RN Service: ? Author [...] do anything else to help you? No [facility] ED NOTE HNO ID: [id number] Author: ALL MCCOY RN Service: Emergency Medicine Author Type: Registered Nurse Type: ED Notes Filed: 03/10/2024 20:31 Note Text: Patient discharge instructions given to patient. Patient educated on discharge instructions and prescription. Patient denied having questions at this time regarding discharge instructions. Patient discharged home at this time. [facility] ED NOTE HNO ID: [id number] Author: ALL MCCOY RN Service: Emergency Medicine Author Type: Registered Nurse Type: ED Notes Filed: 03/10/2024 19:22 Note Text: ED physician at bedside. [facility] ED NOTE HNO ID: [id number] Author: ALL MCCOY RN Service: Emergency Medicine Author Type: Registered Nurse Type: ED Notes Filed: 03/10/2024 19:07 Note Text: Change of shift report received from Mitra Brown RN. I assume patient care at this time. [facility] ED NOTE HNO ID: [id number] Author: MITRA CAMARGO RN Service: ? Author Type: Registered Nurse Type: ED Notes Filed: 03/10/2024 19:02 Note Text: Report to a kelli mccoy [facility] ED NOTE HNO ID: [id number] Author: MITRA CAMARGO RN Service: ? Author Type: Registered Nurse Type: ED Notes Filed: 03/10/2024 18:13 Note Text: Dr traore at bedside for exam [facility] ED NOTE HNO ID: [id number] Author: MITRA CAMARGO, KELLI Service: ? Author Type: Registered Nurse Type: ED Notes Filed: 03/10/2024 18:10 Note Text: Pt is 9 weeks . Pt is having n/v/d and fever for 3 days. Pt 's other children had similar symptoms. Normal [facility] ED PROV NOTEon 03-10-2024 ED PROV NOTE HNO ID: [id number] Author: JAQUELIN ARTEAGA DO Service: Emergency Medicine [...] HISTORY Procedure Laterality Date CHOLECYSTECTOMY HX 06/17/2023 [facility] IUD REMOVAL 09/15/2023 PT ED HEART AND [...] following com (more content not included)... Normal [facility] POC FISH PEDDLER ULTRASOUNDon 03-10-19 25 Indication Viability; confirm cardiac activity Impression Single [...] MATERNAL MEDICINE [facility] S pyo DNA Throat Ql SHYAM+prob suman 03-10-2024 S. pyogenes DNA SHYAM+probe Ql (Throat) Not detected Normal Not detected [facility] Comment on above: Order Comment: Speci men Type: SWAB [facility] Address: [address] [place] [address] Performed By: #### 6 0489-2 #### [facility] [place] [facility] CLIA [id number] [address] [place] [address] [facility] Urinalysis complete panel (U )on 03-10-2024 Bacteria LM.HPF (Urine sed) [#/Area] Moderate Abnormal None Seen [facility] Comment on above: Order Comment: Speci men Type: URINE SPECIMEN [facility] Address: [address] [place] [address] Performed By: #### 2 4356-8 #### [facility] [place] [facility] CLIA [id number] [address] [place] [address] [place] Bilirubin Ql (U) Negative Normal Negative [facility] Comment on above: Order Comment: Speci men Type: URINE SPECIMEN [facility] Address: [address] [place] [address] Performed By: #### 2 4356-8 #### [facility] [place] [facility] CLIA [id number] [address] [place] [address] [facility] Clarity (Unsp spec) Slightly Cloudy Abnormal Clear [facility] Comment on above: Order Comment: Speci men Type: URINE SPECIMEN [facility] Address: [address] [place] [address] Performed By: #### 2 4356-8 #### [facility] [place] [facility] CLIA [id number] [address] [place] [address] [facility] Color (U) Yellow Normal Yellow [facility] Comment on above: Order Comment: Speci men Type: URINE SPECIMEN [facility] Address: [address] [place] [address] Performed By: #### 2 4356-8 #### [facility] [place] [facility] CLIA [id number] [address] [place] [address] [facility] Epithelial cells LM.HPF (Urine sed) [#/Area] Few Normal [facility] Comment on above: Order Comment: Speci men Type: URINE SPECIMEN Order[facility] Address: [address] [place] [address] Performed By: #### 2 4356-8 #### [facility] [place] [facility] CLIA [id number] [address] [place] [address] [facility] Glucose Test strip (U) [Mass/Vol] Negative Normal Negative [facility] Comment on above: Order Comment: Speci men Type: URINE SPECIMEN [facility] Address: [address] [place] [address] Performed By: #### 2 4356-8 #### [facility] [place] [facility] CLIA [id number] [address] [place] [address] [place] Hemoglobin Ql (U) Trace Abnormal Negative [facility] Comment on above: Order Comment: Speci men Type: URINE SPECIMEN [facility] Address: [address] [place] [address] Performed By: #### 2 4356-8 #### [facility] [place] [facility] CLIA [id number] [address] [place] [address] [place] Ketones Ql (U) 4+ Abnormal Negative [facility] Comment on above: Order Comment: Speci men Type: URINE SPECIMEN Ordering Facility: [facility] Address: [address] [place] [address] Performed By: #### 2 4356-8 #### [facility] CLIA [id number] [address] [place] [address] [facility] [place] Leukocyte esterase Test strip Ql (U) Negative Normal Negative [facility] Comment on above: Order Comment: Speci men Type: URINE SPECIMEN Ordering Facility: [facility] Address: [address] [place] [address] Performed By: #### 2 4356-8 #### [facility] CLIA [id number] [address] [place] [address] [place] Nitrite Ql (U) Negative Normal Negative [facility] Comment on above: Order Comment: Speci men Type: URINE SPECIMEN Ordering Facility: [facility] Address: [address] [place] [address] Performed By: #### 2 4356-8 #### [facility] CLIA [id number] [address] [place] [address] [place] pH (U) 6.0 [pH] Normal 5.0-8.0 [facility] Comment on above: Order Comment: Speci men Type: URINE SPECIMEN Ordering Facility: [facility] Address: [address] [place] [address] Performed By: #### 2 4356-8 #### [facility] CLIA [id number] [address] [place], [place] [address] [place] [address] [place] Protein (U) [Mass/Vol] 1+ Abnormal Negative [facility] Comment on above: Order Comment: Speci men Type: URINE SPECIMEN Ordering Facility: [facility] Address: [address] [place] [address] Performed By: #### 2 4356-8 #### [facility] CLIA [id number] [address] [place] RBC LM.HPF (Urine sed) [#/Area] 3-5 /HPF Abnormal 0-3 /HPF [facility] Comment on above: Order Comment: Speci men Type: URINE SPECIMEN Ordering Facility: [facility] Address: [address] [place] [address] Performed By: #### 2 4356-8 #### [facility] CLIA [id number] [address] [place] Specific gravity (U) [Rel density] >=1.030 High 1.005-1.030 [facility] Comment on above: Order Comment: Speci men Type: URINE SPECIMEN Ordering Facility: [facility] Address: [address] [place] [address] Performed By: #### 2 4356-8 #### [facility] CLIA [id number] [address] [place], [place] [address] [place] [address] [place] Urobilinogen Ql (U) 0.2 EU/dL Normal 0.2-1.0 EU/dL [facility] Comment on above: Order Comment: Speci men Type: URINE SPECIMEN Ordering Facility: [facility] Address: [address] [place] [address] Performed By: #### 2 4356-8 #### [facility] CLIA [id number] [address] [place] [address] [place] WBC LM.HPF (Urine sed) [#/Area] 0-5 /HPF Normal 0-5 /HPF [facility] Comment on above: Order Comment: Speci men Type: URINE SPECIMEN Ordering Facility: [facility] Address: [address] [place] [address] Performed By: #### 2 4356-8 #### [facility] CLIA [id number] [address] [place] [id number] [place] BACTERIAL VAGINOSIS NAATon 0 03-09-2024 Lactobacillus crispatus+gasseri+jense mendoza + Gardnerella vaginalis + Atopobium vaginae rRNA SHYAM+probe Ql (Vag fld) Not detected Normal Not detected [facility] Comment on above: Order Comment: Speci men Type: BLOOD SPECIMEN Ordering Facility: [facility] Address: [address] [place] [address] Performed By: #### 7 3752-8, 17974-5, 5195-3 #### [facility] CLIA [id number] [facility] [place] [address] [place] Bacteria Ur Culton Bacteria identified Cx Nom (U) ORGANISM ID: 1 <10,000 CFU/ml Normal urogenital nicolette Normal [facility] Comment on above: Performed By: #### 6 30-4 ####[facility] [id number] [place] [address] [place] C. trachomatis+N. gonorrhoea e DNA SHYAM+probe Ql (Unsp spec)on 03-09-2024 C. trachomatis rRNA SHYAM+probe Ql (Unsp spec) Not detected Normal Not detected [facility] Comment on above: Order Comment: Speci men Type: SWAB Ordering Facility: [facility] Address: [address] [place] [address] Performed By: #### 3 6902-5 #### [facility] CLIA [id number] [address] [place] [address] [place] N. gonorrhoeae rRNA SHYAM+probe Ql (Unsp spec) Not detected Normal Not detected [facility] Comment on above: Order Comment: Speci men Type: SWAB Ordering Facility: [facility] Address: [address] [place] [address] Performed By: #### 3 6902-5 #### [facility] CLIA [id number] [address] [place] [address] [place] ALMITA/TRICHOMONAS NAATon 0 03-09-2024 C. glabrata RNA SHYAM+probe Ql (Vag fld) Not detected Normal Not detected [facility] Comment on above: Order Comment: Speci men Type: BLOOD SPECIMEN Ordering Facility: [facility] Address: [address] [place] [address] Performed By: #### 7 3752-8, 64263-5, 5195-3 #### [facility] CLIA [id number] [address] [place] [address] [place] Almita sp DNA SHYAM+probe Ql (Vag fld) Not detected Normal Not detected [facility] Comment on above: Order Comment: Speci men Type: BLOOD SPECIMEN Ordering Facility: [facility] Address: [address] [place] [address] Result Comment: The Almita species group target includes C. albicans, C. tropicalis, C. parapsilosis, and C. dubliniensis. Performed By: #### 7 3752-8, 65563-6, 5195-3 #### [facility] CLIA [id number] [address] [place] [address] [place] T. vaginalis DNA SHYAM+probe Ql (Unsp spec) Not detected Normal Not detected [facility] Comment on above: Order Comment: Speci men Type: BLOOD SPECIMEN Ordering Facility: [facility] Address: [address] [place] [address] Performed By: #### 7 3752-8, 00086-9, 5194-3 #### [facility] CLIA [id number] [address] [place], [place] [address] [place] PAP TESTon 03-09-2024 ADEQUACY Satisfactory for interpretation. Normal [facility] Comment on above: Order Comment: Speci men Type: BLOOD SPECIMEN Ordering Facility: [facility] Address: [address] [place] [address] Performed By: #### 7 3752-8, 77672-5, 5194-3 #### [facility] CLIA [id number] [address] [place] [address] [place] CASE REPORT Normal [facility] Comment on above: Order Comment: Speci men Type: BLOOD SPECIMEN Ordering Facility: [facility] Address: [address] [place] [address] Result Comment: Gyne cologic Cytology Report Case: [id number] Authorizing Provider: Jaquelin Hi APRN.CNM Collected: 03/09/2024 02:20 PM Ordering Location: OB/Gynecology Received: 03/09/2024 04:49 PM First Screen: Mohorcic, Lianet, CT, ASCP Specimen: Pap Test, ThinPrep, Cervix Performed By: #### 7 3752-8, 78393-9, 5194-3 #### [facility] CLIA [id number] [address] [place], [place] [address] [place] CLINICAL HISTORY, CYTOLOGY, PROCESS CONTROL SUPERVISOR Routine Exam Normal [facility] Comment on above: Order Comment: Speci men Type: BLOOD SPECIMEN Ordering Facility: [facility] Address: [address] [place] [address] Performed By: #### 7 3752-8, 91498-7, 5194-3 #### [facility] CLIA [id number] [address] [place], [place] [address] [place] FINAL PERFORMING LAB Normal [facility] Comment on above: Order Comment: Speci men Type: BLOOD SPECIMEN Ordering Facility: [facility] Address: [address] [place] [address] Result Comment: Tech nical component, pantograph setter screening performed at [facility], [address], [place] [address] CLIA# [id number] Diagnostic interpretation performed at [facility], [address], [place] [address] CLIA# [id number] Acid Cleaner: Kirsten Abad M.D. Performed By: #### 7 3752-8, 96276-2, 5195-3 #### [facility] CLIA [id number] [address] [place] [address] [place] INTERPRETATION, CYTOLOGY, PROCESS CONTROL SUPERVISOR Normal [facility] Comment on above: Order Comment: Speci men Type: BLOOD SPECIMEN Ordering Facility: [facility] Address: [address] [place] [address] Result Comment: Nega tive for intraepithelial lesion or malignancy. Performed By: #### 7 3752-8, 37601-0, 5194-3 #### [facility] CLIA [id number] [address] [place], [place] [address] [place] LMP 01/07/2024 Normal [facility] Comment on above: Order Comment: Speci men Type: BLOOD SPECIMEN Ordering Facility: [facility] Address: [address] [place] [id number] Performed By: #### 7 3752-8, 90059-9, 5-3 #### [facility] CLIA [id number] [address] [place], [place] [address] [place] PAP DISCLAIMER COMMENT The Pap Smear is a screening test for cervical cancer. False negative results occur with all screening tests, emphasizing the need for rescreening at recommended intervals, and clinical correlation. Normal [facility] Comment on above: Order Comment: Speci men Type: BLOOD SPECIMEN Ordering Facility: [facility] Address: [address] [place] [address] Performed By: #### 7 3752-8, 59408-6, 5195-3 #### [facility] CLIA [id number] [address] [place] [address] [place] PAP AUTOMOTIVE ELECTRICIAN HELPER COMMENT This specimen has been analyzed by the ThinPrep Imaging System, an automated imaging and review system, which assists the laboratory in evaluating cells on ThinPrep Pap tests. Following automated imaging, selected barnhart from every slide are reviewed by a pantograph setter. Normal [facility] Comment on above: Order Comment: Speci men Type: BLOOD SPECIMEN Ordering Facility: [facility] Address: [address] [place] [address] Performed By: #### 7 3752-8, 46513-6, 5195-3 #### [facility] CLIA [id number] [address] [place] [address] [place] POC FISH PEDDLER ULTRASOUNDon 03-09-19 Radiology Study observation (narrative) [facility] Bacteria identifiedon 2024 Bacteria identified Cx Nom (U) Test: Urine Culture Specimen Source: Clean Catch/Voided Specimen Type: Urine Specimen Date: 02/18/2024 1130 Result Date: 02/20/2024 0935 Result Status: Final result Abnormal: No Resulting Lab: [facility] [address] [place] [address] CULTURE Clinically insignificant growth based on current clinical standards. [facility] Comment on above: Performed By: #### 5 7021-8 #### TORRES VENTURA ([id number]) [facility] ([facility]) [address] [place] [address] Blood type and Indirect anti body screen panel (Bld)on 02-18-2024 ABO group Nom (Bld) A [facility] Blood group antibody screen Ql Negative [facility] D Ag Ql (Bld) Negative [facility] Review your Rh Negative female patient's potential need for Rh Immune Globulin (RhIg)administration . [facility] ABO group Nom (Bld) A Normal [facility] Comment on above: Order Comment: Venip uncture immediately after or during the administration of Metamizole may lead to falsely low results. Testing should be performed immediately prior to Metamizole dosing. Performed By: #### 3 040-3 #### MELISSA WHITEHEAD ([id number]) [facility] ([facility]) [address] [place] [address] Blood group antibody screen Ql Negative Normal [facility] Comment on above: Order Comment: Venip uncture immediately after or during the administration of Metamizole may lead to falsely low results. Testing should be performed immediately prior to Metamizole dosing. Performed By: #### 3 040-3 #### MELISSA WHITEHEAD ([id number]) [facility] ([facility]) [address] [place] [address] D Ag Ql (Bld) Negative Normal [facility] Comment on above: Order Comment: Venip uncture immediately after or during the administration of Metamizole may lead to falsely low results. Testing should be performed immediately prior to Metamizole dosing. Performed By: #### 3 040-3 #### MELISSA WHITEHEAD ([id number]) [facility] ([facility]) [address] [place] [address] CBC W Auto Differential pane l (Bld)on 02-18-2024 Basophils (Bld) [#/Vol] 0.03 10*3/uL [facility] Basophils/100 WBC (Bld) 0.5 % 0.0 - 2.0 % [facility] Eosinophils (Bld) [#/Vol] 0.05 10*3/uL [facility] Eosinophils/100 WBC (Bld) 0.8 % 0.0 - 6.0 % [facility] Erythrocyte distribution width (RBC) [Ratio] 13.6 % 11.5 - 14.5 % [facility] Hematocrit (Bld) [Volume fraction] 39.8 % 36.0 - 46.0 % [facility] Hemoglobin (Bld) [Mass/Vol] 13.3 g/dL 12.0 - 16.0 g/dL [facility] Immature granulocytes (Bld) [#/Vol] 0.02 10*3/uL [facility] Immature granulocytes/100 WBC (Bld) 0.3 % 0.0 - 0.9 % [facility] Comment on above: Immature Granulocyte Count (IG) includes promyelocytes, myelocytes and metamyelocytes but does not include bands. Percent differential counts (%) should be interpreted in the context of the absolute cell counts (cells/UL). Lymphocytes (Bld) [#/Vol] 1.52 10*3/uL [facility] Lymphocytes/100 WBC (Bld) 23.6 % 13.0 - 44.0 % [facility] MCH (RBC) [Entitic mass] 28.9 pg 26.0 - 34.[address] [facility] MCHC (RBC) [Mass/Vol] 33.4 g/dL 32.0 - 36.0 g/dL [facility] MCV (RBC) [Entitic vol] 87 fL 80 - [address] [facility] Monocytes (Bld) [#/Vol] 0.54 10*3/uL [facility] Monocytes/100 WBC (Bld) 8.4 % 2.0 - 10.0 % [facility] Neutrophils (Bld) [#/Vol] 4.29 10*3/uL [facility] Comment on above: Percent differential counts (%) should be interpreted in the context of the absolute cell counts (cells/uL). Neutrophils/100 WBC (Bld) 66.4 % 40.0 - 80.0 % [facility] Nucleated RBC/100 WBC (Bld) [Ratio] 0 % [facility] Platelets (Bld) [#/Vol] 182 10*3/uL [facility] RBC (Bld) [#/Vol] 4.6 10*6/uL [facility] WBC (Bld) [#/Vol] 6.5 10*3/uL [facility] Basophils (Bld) [#/Vol] 0.03 x10*3/uL Normal 0.00-0.10 [facility] Comment on above: Performed By: #### 3 040-3 #### MELISSA WHITEHEAD ([id number]) [facility] ([facility]) [address] [place] [address] Basophils/100 WBC (Bld) 0.5 % Normal 0.0-2.0 [facility] Comment on above: Performed By: #### 3 040-3 #### MELISSA WHITEHEAD ([id number]) [facility] ([facility]) [address] [place] [address] Eosinophils (Bld) [#/Vol] 0.05 x10*3/uL Normal 0.00-0.70 [facility] Comment on above: Performed By: #### 3 040-3 #### MELSISA WHITEHEAD ([id number]) [facility] ([facility]) [address] [place] [address] Eosinophils/100 WBC (Bld) 0.8 % Normal 0.0-6.0 [facility] Comment on above: Performed By: #### 3 040-3 #### MELISSA WHITEHEAD ([id number]) [facility] ([facility]) [address] [place] [address] Erythrocyte distribution width (RBC) [Ratio] 13.6 % Normal 11.5-14.5 [facility] Comment on above: Performed By: #### 3 040-3 #### MELISSA WHITEHEAD ([id number]) [facility] ([facility]) [address] [place] [address] Hematocrit (Bld) [Volume fraction] 39.8 % Normal 36.0-46.0 [facility] Comment on above: Performed By: #### 3 040-3 #### MELISSA WHITEHEAD ([id number]) [facility] ([facility]) [address] [place] [address] Hemoglobin (Bld) [Mass/Vol] 13.3 g/dL Normal 12.0-16.0 [facility] Comment on above: Performed By: #### 3 040-3 #### MELISSA WHITEHEAD ([id number]) [facility] ([facility]) [address] [place] [address] Immature granulocytes (Bld) [#/Vol] 0.02 x10*3/uL Normal 0.00-0.70 [facility] Comment on above: Performed By: #### 3 040-3 #### MELISSA WHITEHEAD ([id number]) [facility] ([facility]) [address] [place] [address] Immature granulocytes/100 WBC (Bld) 0.3 % Normal 0.0-0.9 [facility] Comment on above: Result Comment: Betty ture Granulocyte Count (IG) includes promyelocytes, myelocytes and metamyelocytes but does not include bands. Percent differential counts (%) should be interpreted in the context of the absolute cell counts (cells/UL). Performed By: #### 3 040-3 #### MELISSA WHITEHEAD ([id number]) [facility] ([facility]) [address] [place] [address] Lymphocytes (Bld) [#/Vol] 1.52 x10*3/uL Normal 1.20-4.80 [facility] Comment on above: Performed By: #### 3 040-3 #### MELISSA WHITEHEAD ([id number]) [facility] ([facility]) [address] [place] [address] Lymphocytes/100 WBC (Bld) 23.6 % Normal 13.0-44.0 [facility] Comment on above: Performed By: #### 3 040-3 #### MELISSA WHITEHEAD ([id number]) [facility] ([facility]) [address] [place] [address]863 MCH (RBC) [Entitic mass] 28.9 pg Normal 26.0-34.0 [facility] Comment on above: Performed By: #### 3 040-3 #### MELISSA WHITEHEAD ([id number]) [facility] ([facility]) [address] [place] [address] MCHC (RBC) [Mass/Vol] 33.4 g/dL Normal 32.0-36.0 [facility] Comment on above: Performed By: #### 3 040-3 #### MELISSA WHITEHEAD ([id number]) [facility] ([facility]) [address] [place] [address] MCV (RBC) [Entitic vol] 87 fL Normal 80-100 U [facility] Comment on above: Performed By: #### 3 040-3 #### MELISSA WHITEHEAD ([id number]) [facility] ([facility]) [address] [place] [address] 43997 Monocytes (Bld) [#/Vol] 0.54 x10*3/uL Normal 0.10-1.00 [facility] Comment on above: Performed By: #### 3 040-3 #### MELISSA WHITEHEAD ([id number]) [facility] ([facility]) [address] [place] [address] 818[address] Monocytes/100 WBC (Bld) 8.4 % Normal 2.0-10.0 [facility] Comment on above: Performed By: #### 3 040-3 #### MELISSA WHITEHEAD ([id number]) [facility] ([facility]) [address] [place] [address]85 Neutrophils (Bld) [#/Vol] 4.29 x10*3/uL Normal 1.20-7.70 [facility] Comment on above: Result Comment: Perc ent differential counts (%) should be interpreted in the context of the absolute cell counts (cells/uL). Performed By: #### 3 040-3 #### MELISSA WHITEHEAD ([id number]) [facility] ([facility]) [address] [place] [address] 04665 Neutrophils/100 WBC (Bld) 66.4 % Normal 40.0-80.0 [facility] Comment on above: Performed By: #### 3 040-3 #### MELISSA WHITEHEAD ([id number]) [facility] ([facility]) [address] [place] [address] 68265 Nucleated RBC/100 WBC (Bld) [Ratio] 0.0 /100 WBCs Normal 0.0-0.0 [facility] Comment on above: Performed By: #### 3 040-3 #### MELISSA WHITEHEAD ([id number]) [facility] ([facility]) [address] [place] [address] Platelets (Bld) [#/Vol] 182 x10*3/uL Normal 150-450 [facility] Comment on above: Performed By: #### 3 040-3 #### MELISSA WHITEHEAD ([id number]) [facility] ([facility]) [address] [place] [address] RBC (Bld) [#/Vol] 4.60 x10*6/uL Normal 4.00-5.20 [facility] Comment on above: Performed By: #### 3 040-3 #### MELISSA WHITEHEAD ([id number]) [facility] ([facility]) [address] [place] [address] WBC (Bld) [#/Vol] 6.5 x10*3/uL Normal 4.4-11.3 [facility] Comment on above: Performed By: #### 3 040-3 #### MELISSA WHITEHEAD ([id number]) [facility] ([facility]) [address] [place] [address] Choriogonadotropin.beta subu niton 02-18-2024 [place] [address] m[IU]/mL High <5 U [facility] Comment on above: Order Comment: Venip [...] By: #### 3 040-3 #### MELISSA WHITEHEAD ([id number]) [facility] ([facility]) [address] [place], [place] [id number] Comprehensive metabolic 2000 panelon 02-18-2024 Albumin BCP dye [Mass/Vol] 4.3 g/dL 3.4 - 5.0 g/dL [facility] ALP [Catalytic activity/Vol] 48 U/L 33 - 110 U/L [facility] ALT With P-5'-P [Catalytic activity/Vol] 14 U/L 7 - 45 U/L [facility] Comment on above: Patients treated wit h Sulfasalazine may generate falsely decreased results for ALT. Anion gap [Moles/Vol] 11 mmol/L 10 - 20 mmol/L [facility] AST With P-5'-P [Catalytic activity/Vol] 14 U/L 9 - 39 U/L [facility] Bilirubin [Mass/Vol] 1 mg/dL 0.0 - 1.2 mg/dL [facility] Calcium [Mass/Vol] 8.8 mg/dL 8.6 - 10. 3 mg/dL [facility] Chloride [Moles/Vol] 104 mmol/L 98 - 107 mmol/L [facility] CO2 [Moles/Vol] 22 mmol/L 21 - 32 mmol/L Unive [facility] Creatinine [Mass/Vol] 0.57 mg/dL 0.50 - 1.05 mg/dL [facility] eGFR - PINF [facility] Comment on above: Calculations of nick mated GFR are performed using the 2020 CKD-EPI Study Refit equation without the race variable for the IDMS-Traceable creatinine methods. https://jasn.asnjournals.org/content/early/ASN.2020 312571 Glucose [Mass/Vol] 64 mg/dL Low 74 - 99 mg/dL Uni [facility] Interpretation and review of laboratory results Abnormal [facility] Potassium [Moles/Vol] 4.2 mmol/L 3.5 - 5.3 mmol/L [facility] Protein [Mass/Vol] 6.7 g/dL 6.4 - 8.2 g/dL [facility] Sodium [Moles/Vol] 133 mmol/L Low 136 - 145 mmol/L [facility] Urea nitrogen [Mass/Vol] 10 mg/dL 6 - 23 mg/dL [facility] Albumin BCP dye [Mass/Vol] 4.3 g/dL Normal 3.4-5.0 [facility] Comment on above: Performed By: #### 3 040-3 #### MELISSA WHITEHEAD ([id number]) [facility] ([facility]) [address] [place] [address] ALP [Catalytic activity/Vol] 48 U/L Normal 33-110 [facility] Comment on above: Performed By: #### 3 040-3 #### MELISSA WHITEHEAD ([id number]) [facility] [facility] ([facility]) [address] [place] [address] ALT With P-5'-P [Catalytic activity/Vol] 14 U/L Normal 7-45 [facility] Comment on above: Result Comment: Gema ents treated with Sulfasalazine may generate falsely decreased results for ALT. Performed By: #### 3 040-3 #### MELISSA WHITEHEAD ([id number]) [facility] ([facility]) [address] [place] [address] Anion gap [Moles/Vol] 11 mmol/L Normal 10-20 [facility] Comment on above: Performed By: #### 3 040-3 #### MELISSA WHITEHEAD ([id number]) [facility] ([facility]) [address] [place] [address] AST With P-5'-P [Catalytic activity/Vol] 14 U/L Normal 9-39 [facility] Comment on above: Performed By: #### 3 040-3 #### MELISSA WHITEHEAD ([id number]) [facility] ([facility]) [address] [place] [address] Bilirubin [Mass/Vol] 1.0 mg/dL Normal 0.0-1.2 [facility] Comment on above: Performed By: #### 3 040-3 #### MELISSA WHITEHEAD ([id number]) [facility] ([facility]) [address] [place] [address] Calcium [Mass/Vol] 8.8 mg/dL Normal 8.6-10.3 [facility] Comment on above: Performed By: #### 3 040-3 #### MELISSA WHITEHEAD ([id number]) [facility] ([facility]) [address] [place] [address] 16989 Chloride [Moles/Vol] 104 mmol/L Normal 98-107 [facility] Comment on above: Performed By: #### 3 040-3 #### MELISSA WHITEHEAD ([id number]) [facility] ([facility]) [address] [place] [address] 94349 CO2 [Moles/Vol] 22 mmol/L Normal 21-32 [facility] Comment on above: Performed By: #### 3 040-3 #### MELISSA WHITEHEAD ([id number]) [facility] ([facility]) [address] [place] [address] 28237 Creatinine [Mass/Vol] 0.57 mg/dL Normal 0.50-1.05 [facility] Comment on above: Performed By: #### 3 040-3 #### MELISSA WHITEHEAD ([id number]) [facility] ([facility]) [address] [place] [address] 99878 GFR/1.73 sq M.predicted MDRD (S/P/Bld) [Vol rate/Area] mL/min/{1.73_m2} Normal >60 [facility] Comment on above: Result Comment: Calc ulations of estimated GFR are performed using the 2020 CKD-EPI Study Refit equation without the race variable for the IDMS-Traceable creatinine methods. https://jasn.asnjournals.org/content/early//ASN.2020 850510 Performed By: #### 3 040-3 #### MELISSA WHITEHEAD ([id number]) [facility] ([facility]) [address] [place] [address] 95[address] Glucose [Mass/Vol] 64 mg/dL Low 74-99 [facility] Comment on above: Performed By: #### 3 040-3 #### MELISSA WHITEHEAD ([id number]) [facility] ([facility]) [address] [place] [address] 55290 Potassium [Moles/Vol] 4.2 mmol/L Normal 3.5-5.3 [facility] Comment on above: Performed By: #### 3 040-3 #### MELISSA WHITEHEAD ([id number]) [facility] ([facility]) [address] [place] [address] 93368 Protein [Mass/Vol] 6.7 g/dL Normal 6.4-8.2 [facility] Comment on above: Performed By: #### 3 040-3 #### MELISSA WHITEHEAD ([id number]) [facility] ([facility]) [address] [place] [address] 38189 Sodium [Moles/Vol] 133 mmol/L Low 136-145 [facility] Comment on above: Performed By: #### 3 040-3 #### MELISSA WHITEHEAD ([id number]) [facility] ([facility]) [address] [place] [address] 34674 Urea nitrogen [Mass/Vol] 10 mg/dL Normal 6-23 [facility] Comment on above: Performed By: #### 3 040-3 #### MELISSA WHITEHEAD ([id number]) [facility] ([facility]) [address] [place] [address] 98544 Glucose Test strip manual (B ld) [Mass/Vol]on 02-18-2024 Glucose [Mass/Vol] 168 mg/dL High 74 - 99 mg/dL [facility] Interpretation and review of laboratory results Abnormal [facility] Glucose [Mass/Vol] 168 mg/dL High 74-99 [facility] Comment on above: Performed By: #### 3 040-3 #### MELISSA WHITEHEAD ([id number]) [facility] ([facility]) [address] [place] [address] 83904 Glucose [Mass/Vol] 54 mg/dL Low 74 - 99 mg/dL [facility] Comment on above: Notified Interpretation and review of laboratory results Abnormal [facility] Glucose [Mass/Vol] 54 mg/dL Low 74-99 [facility] Comment on above: Result Comment: MD Maurice layne Performed By: #### 3 040-3 #### MELISSA WHITEHEAD ([id number]) [facility] ([facility]) [address] [place] [address] 22325 HCG ( test) IA.rapi d Ql (U)Ordered By: Keila Coburn on 02-18-2024 HCG ( test) Ql (U) Positive Abnormal NEGATIVE [facility] Interpretation and review of laboratory results Abnormal [facility] HCG ( test) IA.rapi d Ql (U)on 02-18-2024 HCG ( test) Ql (U) Positive Abnormal NEGATIVE [facility] Comment on above: Performed By: #### 3 040-3 #### MELISSA WHITEHEAD ([id number]) [facility] ([facility]) [address] [place], [place] [id number] HCG.beta subunit Qnon 2024 Interpretation and review of laboratory results Abnormal [facility] Total HCG measurement is performed using the [facility] Access Immunoassay which detects intact HCG and free beta HCG subunit. This test is not indicated for use as a tumor marker. HCG testing is performed using a different test methodology at [facility] than other physicians [facility] surgeons hospital. Direct result comparison should only be made within the same method. [facility] No Panel Informationon 02-17 Interpretation and review of laboratory results Abnormal [facility] US PELVIS OB TRANSABDOMINAL W TRANSVAGINAL UP TO 1ST TRIMESTERon 02-18-2024 US PELVIS OB TRANSABDOMINAL W TRANSVAGINAL UP TO 1ST TRIMESTER Interpreted By: Samia Valencia, STUDY: US PELVIS OB TRANSABDOMINAL W TRANSVAGINAL UP TO 1ST TRIMESTER 02/18/2024 12:42 pm INDICATION: 23 y/o F with Signs/Symptoms:abd cramping. LMP 01/07/2024 EGA (by LMP) 6 w 0 d LUZ (by LMP) 10/13/2024 COMPARISON: None. ACCESSION NUMBER(S): [id number] ORDERING CLINICIAN: EUGENE MCCORMICK TECHNIQUE: Routine ultrasound [...] Samia Valencia 02/18/2024 1:00 PM Dictation workstation: [id number] [facility] US Pelvis transvaginalon 1. Single live intrauterine . 2. Estimated gestational age: 6 weeks 1 days. LUZ: 10/12/2024. 3. Small subchorionic hemorrhage. MACRO: None Signed by: Samia Valencia 02/18/2024 1:00 PM Dictation workstation: [id number] MMODAL Interpreted By: Samia Valencia, STUDY: US PELVIS OB TRANSABDOMINAL W TRANSVAGINAL UP TO 1ST TRIMESTER 02/18/2024 12:42 pm INDICATION: 23 y/o F with Signs/Symptoms:abd cramping. LMP 01/07/2024 EGA (by LMP) 6 w 0 d LUZ (by LMP) 10/13/2024 COMPARISON: None. ACCESSION NUMBER(S): [id number] ORDERING CLINICIAN: EUGENE MCCORMICK TECHNIQUE: Routine ultrasound [...] in the cul de sac. [facility] MMODAL Saima Valencia MD - 02/18/2024 Interpreted By: Samia Valencia, STUDY: US PELVIS OB TRANSABDOMINAL W TRANSVAGINAL UP TO 1ST TRIMESTER 02/18/2024 12:42 pm INDICATION: 23 y/o F with Signs/Symptoms:abd cramping. LMP 01/07/2024 EGA (by LMP) 6 w 0 d LUZ (by LMP) 10/13/2024 COMPARISON: None. ACCESSION NUMBER(S): [id number] ORDERING CLINICIAN: EUGENE MCCORMICK TECHNIQUE: Routine ultrasound [...] Samia Valencia 02/18/2024 1:00 PM Dictation workstation: [id number] [facility] Work Phone: Radiology Study observation (narrative) [facility] Work Phone: US Pelvis transvaginalOrdere d By: Samia Valencia on 02-18-[address] [facility] Work Phone: Urinalysis complete W Reflex Culture panel (U)on 02-18-2024 Appearance (U) Turbid Abnormal Clear [facility] Bilirubin (U) [Mass/Vol] Negative NEGATIVE [facility] Color (U) Yellow Light-Yellow, Yellow, Dark-Yellow [facility] Glucose Auto test strip (U) [Mass/Vol] Normal Normal mg/dL [facility] Ketones (U) [Mass/Vol] OVER (4+) Abnormal NEGATIVE mg/d L [facility] Leukocyte esterase Auto test strip Ql (U) 250 Dustin/uL Abnormal NEGATIVE [facility] Nitrite Auto test strip Ql (U) Negative NEGATIVE [facility] pH (U) 6 [pH] 5.0, 5.5, 6.0, 6.5, 7.0, 7.5, 8.[address] [facility] Protein (U) [Mass/Vol] 50 (1+) Abnormal NEGAT UNRULY, 10 (TRACE), 20 (TRACE) mg/dL [facility] RBC (U) [#/Vol] Negative NEGATIVE [facility] Specific gravity (U) [Rel density] 1.030 1.005 - 1.[address] [facility] Urobilinogen (U) [Mass/Vol] Normal Normal mg/dL [facility] OVER is reported when the result is greater than the clinically reportable range. [facility] Appearance (U) Turbid Normal Clear [facility] Comment on above: Order Comment: Venip uncture immediately after or during the administration of Metamizole may lead to falsely low results. Testing should be performed immediately prior to Metamizole dosing. Performed By: #### 3 040-3 #### MELISSA WHITEHEAD ([id number]) [facility] ([facility]) [address] [place] [address] 70[address] Bilirubin (U) [Mass/Vol] Negative Normal NEGATIVE [facility] Comment on above: Order Comment: Venip uncture immediately after or during the administration of Metamizole may lead to falsely low results. Testing should be performed immediately prior to Metamizole dosing. Performed By: #### 3 040-3 #### MELISSA WHITEHEAD ([id number]) [facility] ([facility]) [address] [place] [address] 79576 Color (U) Yellow Normal Light-Yellow, Yellow, Dark-Yellow [facility] Comment on above: Order Comment: Venip uncture immediately after or during the administration of Metamizole may lead to falsely low results. Testing should be performed immediately prior to Metamizole dosing. Performed By: #### 3 040-3 #### MELISSA WHITEHEAD ([id number]) [facility] ([facility]) [address] [place] [address] 44854 Glucose Auto test strip (U) [Mass/Vol] Normal Normal Normal [facility] Comment on above: Order Comment: Venip uncture immediately after or during the administration of Metamizole may lead to falsely low results. Testing should be performed immediately prior to Metamizole dosing. Performed By: #### 3 040-3 #### MELISSA WHITEHEAD ([id number]) [facility] ([facility]) [facility] [place] [address] Ketones (U) [Mass/Vol] OVER (4+) Abnormal NEGATIVE [facility] above: Order Comment: Venip uncture immediately after or during the administration of Metamizole may lead to falsely low results. Testing should be performed immediately prior to Metamizole dosing. Performed By: #### 3 040-3 #### MELISSA WHITEHEAD ([id number]) [facility] ([facility]) [address] [place] [address] 37437 Leukocyte esterase Auto test strip Ql (U) 250 Dustin/uL Abnormal NEGATIVE [facility] Comment on above: Order Comment: Venip uncture immediately after or during the administration of Metamizole may lead to falsely low results. Testing should be performed immediately prior to Metamizole dosing. Performed By: #### 3 040-3 #### MELISSA WHITEHEAD ([id number]) [facility] ([facility]) [address] [place] [address] 55046 Nitrite Auto test strip Ql (U) Negative Normal NEGATIVE [facility] Comment on above: Order Comment: Venip uncture immediately after or during the administration of Metamizole may lead to falsely low results. Testing should be performed immediately prior to Metamizole dosing. Performed By: #### 3 040-3 #### MELISSA WHITEHEAD ([id number]) [facility] ([facility]) [address] [place], [place] [id number] pH (U) 6.0 [pH] Normal 5.0, 5.5, 6.0, 6.5, 7.0, 7.5, 8.0 [facility] Comment on above: Order Comment: Venip uncture immediately after or during the administration of Metamizole may lead to falsely low results. Testing should be performed immediately prior to Metamizole dosing. Performed By: #### 3 040-3 #### MELISSA WHITEHEAD ([id number]) [facility] ([facility]) [address] [place] [address] 46378 Protein (U) [Mass/Vol] 50 (1+) Abnormal NEGAT UNRULY, 10 (TRACE), 20 (TRACE) [facility] Comment on above: Order Comment: Venip uncture immediately after or during the administration of Metamizole may lead to falsely low results. Testing should be performed immediately prior to Metamizole dosing. Performed By: #### 3 040-3 #### MELISSA WHITEHEAD ([id number]) [facility] ([facility]) [address] [place] [address] RBC (U) [#/Vol] Negative Normal NEGATIVE [facility] Comment on above: Order Comment: Venip uncture immediately after or during the administration of Metamizole may lead to falsely low results. Testing should be performed immediately prior to Metamizole dosing. Performed By: #### 3 040-3 #### MELISSA WHITEHEAD ([id number]) [facility] ([facility]) [address] [place] [address] Specific gravity (U) [Rel density] 1.030 Normal 1.005-1.035 [facility] Comment on above: Order Comment: Venip uncture immediately after or during the administration of Metamizole may lead to falsely low results. Testing should be performed immediately prior to Metamizole dosing. Performed By: #### 3 040-3 #### MELISSA WHITEHEAD ([id number]) [facility] ([facility]) [address] [place] [address] Urobilinogen (U) [Mass/Vol] Normal Normal Normal [facility] Comment on above: Order Comment: Venip uncture immediately after or during the administration of Metamizole may lead to falsely low results. Testing should be performed immediately prior to Metamizole dosing. Performed By: #### 3 040-3 #### MELISSA WHITEHEAD ([id number]) [facility] ([facility]) [address] [place] [address] Urinalysis microscopic panel Auto Ql (U)on 02-18-2024 Bacteria Auto (Urine sed) [#/Area] 1+ Abnormal NONE SEEN /HPF [facility] Epithelial cells.squamous Auto (Urine sed) [#/Area] 10-25 (FEW) Reference range not established. /HPF [facility] Mucus Auto (Urine sed) [#/Area] 2+ Reference range not established. /LPF [facility] RBC Auto (Urine sed) [#/Area] 3-5 NONE, 1-2, 3-5 /HPF [facility] WBC Auto (Urine sed) [#/Area] >50 Abnormal 1-5, NONE /HPF [facility] Bacteria Auto (Urine sed) [#/Area] 1+ /HPF Abnormal NONE SEEN [facility] Comment on above: Performed By: #### 3 040-3 #### MELISSA WHITEHEAD ([id number]) [facility] ([facility]) [address] [place] [address] 20356 Epithelial cells.squamous Auto (Urine sed) [#/Area] 10-25 (FEW) Normal Reference range not established. [facility] Comment on above: Performed By: #### 3 040-3 #### MELISSA WHITEHEAD ([id number]) [facility] ([facility]) [address] [place], [place] [id number] Mucus Auto (Urine sed) [#/Area] 2+ /LPF Normal Reference range not established. [facility] Comment on above: Performed By: #### 3 040-3 #### MELISSA WHITEHEAD ([id number]) [facility] ([facility]) [address] [place] [address] 17987 RBC Auto (Urine sed) [#/Area] 3-5 Normal NONE, 1-2, 3-5 [facility] Comment on above: Performed By: #### 3 040-3 #### MELISSA WHITEHEAD ([id number]) [facility] ([facility]) [address] [place] [address] 06222 WBC Auto (Urine sed) [#/Area] >50 Abnormal 1-5, NONE [facility] Comment on above: Performed By: #### 3 040-3 #### MELISSA WHITEHEAD ([id number]) [facility] ([facility]) [address] [place] [address] 59124 hCG, quantitative, on 02-18-2024 [place] [address] m[IU]/mL High NIN U [facility] Comment on above: Low-level positive H CG [...] Q-T Interval 388 QTC Calculation(Bazett) 412 P Pillsbury 33 R Pillsbury 86 T Pillsbury 48 QRS Count 11 Q Onset 222 P Onset 152 P Offset 195 T Offset 416 QTC Fredericia 404 Diagnosis Normal sinus rhythm Normal ECG When compared with ECG of 03-OCT-2023 06:45, No significant change was found Confirmed by Ramiro Hugo ([id number]) on 02/02/2024 6:20:23 PM Normal [facility] CNOVon 12-26-2023 CNOV Office Visit (AGFAMPLE) KEAGAN ALICIA ([id number]) 4 F Date Time Provider Department 12/26/23 10:00 AM RACHELL AMADOR During your visit today, we recorded the following information about you: Temperature Pulse Respiration Blood pressure 98 degrees 52/minute 16/minute 122/62 Weight Height 56.2 kg 1.6 m Rachell Amador, STEAM FINISHER.SERVICE LEARNING COORDINATOR 12/26/2023 11:34 [place] [address] Date of Evaluation: 12/26/2023 Patient Name: Keagan [...] HISTORY Procedure Laterality Date CHOLECYSTECTOMY HX 06/17/2023 [facility] IUD REMOVAL 09/15/2023 PT ED HEART AND [...] Ear: Tympa (more content not included)... Normal [facility] BACTERIAL VAGINOSIS NAATon 1 Lactobacillus crispatus+gasseri+jense mendoza + Gardnerella vaginalis + Atopobium vaginae rRNA SHYAM+probe Ql (Vag fld) Negative Normal Negative for bacterial vaginosis [facility] Comment on above: Order Comment: Speci men Type: BLOOD SPECIMEN Ordering Facility: [facility] Address: [address] [place] [address] Performed By: #### 7 3752-8, 79403-0, 5195-3 #### [facility] CLIA [id number] [address] [place] [address] [place] C. trachomatis+N. gonorrhoea e DNA SHYAM+probe Ql (Unsp spec)on 11-24-2023 C. trachomatis rRNA SHYAM+probe Ql (Unsp spec) Negative Normal Negative for Chlamydia trachomatis by amplificaton [facility] Comment on above: Order Comment: Speci men Type: SWABOrdering Facility: [facility] Address: [address] [place] [address] Performed By: #### 3 6902-5 ####[facility] [id number] [place] [address] [place] N. gonorrhoeae rRNA SHYAM+probe Ql (Unsp spec) Negative Normal Negative for Neisseria gonorrhoeae by amplification [facility] Comment on above: Order Comment: Speci men Type: SWABOrdering Facility: [facility] Address: [address] [place] [address] Performed By: #### 3 6902-5 ####[facility] [id number] [place] [address] [place] ALMITA/TRICHOMONAS NAATon 1 C. glabrata RNA SHYAM+probe Ql (Vag fld) Negative Normal Negative for Almita glabrata [facility] Comment on above: Order Comment: Speci men Type: BLOOD SPECIMEN Ordering Facility: [facility] Address: [address] [place] [address] Performed By: #### 7 3752-8, 52428-8, 5195-3 #### [facility] CLIA [id number] [address] [place] [address] [place] Almita sp DNA SHYAM+probe Ql (Vag fld) Negative Normal Negative for Almita species [facility] Comment on above: Order Comment: Speci men Type: BLOOD SPECIMEN Ordering Facility: [facility] Address: [address] [place] [address] Performed By: #### 7 3752-8, 61606-2, 5195-3 #### [facility] CLIA [id number] [address] [place] [address] [place] [address] [place] T. vaginalis DNA SHYAM+probe Ql (Unsp spec) Negative Normal Negative for Trichomonas vaginalis by amplification [facility] Comment on above: Order Comment: Speci men Type: BLOOD SPECIMEN Ordering Facility: [facility] Address: [address] [place] [address] Performed By: #### 7 3752-8, 19340-0, 5195-3 #### [facility] CLIA [id number] [address] [place] [address] [place] [address] [place] CNOVon 11-24-2023 CNOV Office Visit (OBGYWM) KEAGAN ALICIA ([id number]) 4 F Date Time Provider Department 11/24/23 12:45 PM SANDRA COLE OBGYWM During your visit today, we recorded the following information about you: Blood pressure Weight Last Period 118/64 54.4 kg 11/18/23 Sandra Cole APRN.SERVICE LEARNING COORDINATOR 11/24/2023 1:09 PM Signed Patient declined lead recreation assistant. Keagan Alicia is a 23 year old [...] Births2 Comment: No DANDCs for missed abs Transportation Engineer History LMP: 09/15/2023 (Exact Date), Having periods Age at Menarche: Age at First : Age at Menopause: Transportation Engineer History Comments: Sexual Activity: Yes; Male Contraception: Pill PAST MEDICAL HISTORY Diagnosis Date Anemia Chronic tonsillitis Depression 10/08/2016 Gall stone 07/2022 cholecystectomy after delivery GERD (gastroesophageal reflux disease) Hemorrhoids History of back problems Kidney stones Paroxysmal SVT (supraventricular tachycardia) (HCC) Postoperative pulmonary embolism (HCC) 06/2023 Psychiatric disorder depression, anxiety and PTSD PAST SURGICAL HISTORY Procedure Laterality Date CHOLECYSTECTOMY HX 06/17/2023 [facility] IUD REMOVAL 09/15/2023 TONSILLECTOMY HX FAMILY HISTORY [...] discussed with the Patient or Patient's Authorized Head Of Marketing Analytics. As applicable, any other physician, advance practice provider, medical student, or other health professional student that will be observing or involved in the sensitive examination for educational or training purposes was discussed with the Patient or Authorized Head Of Marketing Analytics. The Patient or Authorized Head Of Marketing Analytics has agreed to proceed with the sensitive examination. (Sensitive examination includes inspection and/or palpation of the breasts, pelvis, prostate and anorectal regions). EXAM: LMP 09/15/2023 GENERAL: pleasant, female in no apparent distress HEENT: Normocephalic, atraumatic, mucus membranes moist, and no lesions CHEST: Normal inspiratory effort ABDOMEN: soft, non-tender, and no masses PELVIC: external genitalia normal, normal Bartholin's glands, urethra, Hereford's glands, no vulvar lesions, no cervical lesions, good vaginal support, physiologic discharge present, normal appearing perineal body and perianal region BIMANUAL: deferred NEURO: alert and oriented x3,exam grossly non-focal EXTREMITIES: normal ASSESSMENT/PLAN: 1. Vaginal discharge - ICD9: 623.5, ICD10: N89.8 Will notify patient of test results. - ALMITA/TRICHOMONAS NAAT - BACTERIAL VAGINOSIS NAAT - GONORRHEA/CHLAMYDIA NAAT If results are negative recommend vaginal pH polysomnography technician. Sandra Cole APRN.CNP Medical Decision Making: Problems: Moderate: New problem with uncertain prognosis Data: Unique test(s) ordered: 3+ Risk: Low: Low risk from testing/treatment Medical Decision Making Level: 4 - Moderate Allergies As of Date: 11/24/2023 Noted Allergy Reaction LATEX 07/02/2023 9 - Itching Date Reviewed: 09/29/2023 Reviewed by: Seema Bowman RN - Fully Assessed Reason for Visit: (more content not included)... Normal [facility] HISTORY PHYSICALon HISTORY PHYSICAL HNO ID: [id number] Author: FAIZA MISHRA APRN.CNP Service: ? Author Type: Nurse Practitioner Type: [...] postoperative status. LABS BASIC METABOLIC PANEL Order: [id number] Component Ref Range AND Units 2 wk [...] race variable for the IDMS-Traceable creatinine methods. https://anthony.asnjour nals.org/content/ear ly//ASN.20 32794755 Calcium 8.6 - 10.3 mg/dL 9.2 ntains abnormal data COMPLETE BLOOD COUNT Order: [id number] Component Ref Range AND Units 2 wk [...] Abs Lymph 1.00 - 4.00 k/uL 1.48 [place]% % 10.7 Abs [place] <0.87 k/uL 0.38 [place]% % 0.3 Abs [...] PAST SURGICAL HISTORY 06/17/2023: CHOLECYSTECTOMY HX Comment: [facility] 09/15/2023: IUD REMOVAL No date: TONSILLECTOMY HX FAMILY HISTORY Problem Relation Age of Onset other (migraines) Mother None Father Ovarian cancer Maternal Grandmother Anesthesia Problems No Family History Social History Tobacco Use Smoking status: Never Passive exposure: Yes Smokeless tobacco: Never Tobacco comments: Vapes Vaping Use Vaping status: current everyday user Substances: Nicotine, Flavor (more content not included)... Normal [facility] ECG 12 lead Aysha 4 Atrial Rate [address] [facility] Work Phone: [phone] P Pillsbury [address] [facility] Work Phone: [phone] P Offset [address] [facility] Work Phone: [phone] P Onset [address] [facility] Work Phone: [phone] MS Interval [address] [facility] Work Phone: [phone] Q Onset [address] [facility] Work Phone: [phone] QRS Count [address] [facility] Work Phone: [phone] QRS Duration [address] [facility] Work Phone: [phone] QT Interval [address] [facility] Work Phone: [phone] QTC Calculation(Bazett) 420 ms [facility] Work Phone: [phone] QTC Fredericia [address] [facility] Work Phone: [phone] R Pillsbury [address] [facility] Work Phone: T Pillsbury [address] [facility] Work Phone: T Offset [address] [facility] Work Phone: Ventricular Rate 69 BPM [facility] Work Phone: Normal sinus rhythm Normal ECG When compared with ECG of 21-JUN-2023 08:13, Nonspecific T wave abnormality no longer evident in Inferior leads Confirmed by Ramiro Hugo ([id number]) on 10/03/2023 2:39:06 PM MUSE Ramiro Hugo MD - 10/03/2023 Normal sinus rhythm Normal ECG When compared with ECG of 21-JUN-2023 08:13, Nonspecific T wave abnormality no longer evident in Inferior leads Confirmed by Ramiro Hugo ([id number]) on 10/03/2023 2:39:[address] [facility] Work Phone: [facility] Work Phone: ECG 12-LEADon 10-03-2023 ECG 12-LEAD Ventricular Rate 69 Atrial Rate 69 P-R Interval 134 QRS Duration 82 Q-T Interval 392 QTC Calculation(Bazett) 420 P Pillsbury 44 R Pillsbury 87 T [place] 52 QRS Count 11 Q Onset 220 P Onset 153 P Offset 190 T Offset 416 QTC Fredericia 410 Diagnosis Normal sinus rhythm Normal ECG When compared with ECG of 21-JUN-2023 08:13, Nonspecific T wave abnormality no longer evident in Inferior leads Confirmed by Ramiro Hugo ([id number]) on 10/03/2023 2:39:06 PM Normal [facility] Electrophysiology studyon Table formatting from the original result was not included. Supraventricular tachycardia ablation Procedures SVT Ablation (13770), Induction Post IV Drug Infusion (83050), 3D Mapping (68102), Ultrasound Guided vascular access (27727) Patient history: Please refer to the detailed [...] monitored anesthesia care (administered and monitored by networking engineer and PARKING SUPERVISOR). The bilateral femoral vein was accessed x [...] baseline heart rate QRS: 82ms, QT 392ms, MS 134ms, RR 870ms RA activation: High-to-low CS [...] symptoms, or recent severe chest pain) call [place]: [phone] See complete procedural log and parameters. SYNGO_SECTRA _CARDIOLAB_X PER [facility] Work Phone: Glucose Test strip manual (B ld) [Mass/Vol]on 10-03-2023 Glucose [Mass/Vol] 156 mg/dL High 74 - 99 mg/dL [facility] Interpretation and review of laboratory results Abnormal [facility] Glucose [Mass/Vol] 156 mg/dL High 74-99 [facility] Comment on above: Performed By: #### 2 341-6 #### LILI VA ([id number]) [facility] ([facility]) [address] [place] [address] 51134 CNOVon 09-29-2023 CNOV Office Visit (SWS) KEAGAN ALICIA ([id number]) 4 F Date Time Provider Department 09/29/23 2:30 PM ANASTASIA, CONOR P GENSWS During your visit today, we recorded the [...] the surgeon. She was seen by her PROCESS CONTROL SUPERVISOR physician who got her into see me [...] PAST SURGICAL HISTORY 06/17/2023: CHOLECYSTECTOMY HX Comment: [facility] 09/15/2023: IUD REMOVAL No date: TONSILLECTOMY HX [...] will be forwarded to Dr. Rachell Amador, STEAM FINISHER.SERVICE LEARNING COORDINATOR. Return to Clinic: The patient is instructed to follow-up with me as ne (more content not included)... Normal [facility] Basic metabolic 2000 panelon 09-26-2023 Anion gap [Moles/Vol] 11 mmol/L Normal 10-20 [facility] Comment on above: Performed By: #### 2 4321-2 #### MELISSA WHITEHEAD ([id number]) [facility] ([facility]) [address] [place] [address] 68202 Calcium [Mass/Vol] 9.2 mg/dL Normal 8.6-10.3 [facility] Comment on above: Performed By: #### 2 4321-2 #### MELISSA WHITEHEAD ([id number]) [facility] ([facility]) [address] [place] [address] 29610 Chloride [Moles/Vol] 104 mmol/L Normal 98-[address] [facility] Comment on above: Performed By: #### 2 4321-2 #### MELISSA WHITEHEAD ([id number]) [facility] ([facility]) [address] [place] [address] CO2 [Moles/Vol] 26 mmol/L Normal 21-32 [facility] Comment on above: Performed By: #### 2 4321-2 #### MELISSA WHITEHEAD ([id number]) [facility] ([facility]) [address] [place] [address] 07452 Creatinine [Mass/Vol] 0.68 mg/dL Normal 0.50-1.05 [facility] Comment on above: Performed By: #### 2 4321-2 #### MELISSA WHITEHEAD ([id number]) [facility] ([facility]) [address] [place] [address] 53548 GFR/1.73 sq M.predicted MDRD (S/P/Bld) [Vol rate/Area] mL/min/{1.73_m2} Normal >60 [facility] Comment on above: Result Comment: Calc ulations of estimated GFR are performed using the 2020 CKD-EPI Study Refit equation without the race variable for the IDMS-Traceable creatinine methods. https://jasn.asnjournals.org/content//ASN.2020 037957 Performed By: #### 2 4321-2 #### MELISSA WHITEHEAD ([id number]) [facility] ([facility]) [address] [place] [address] 77952 Glucose [Mass/Vol] 84 mg/dL Normal 74-99 [facility] Comment on above: Performed By: #### 2 4321-2 #### MELISSA WHITEHEAD ([id number]) [facility] ([facility]) [address] [place] [address] 69052 Potassium [Moles/Vol] 4.2 mmol/L Normal 3.5-5.3 [facility] Comment on above: Performed By: #### 2 4321-2 #### MELISSA WHITEHEAD ([id number]) [facility] ([facility]) [address] [place] [address] 71822 Sodium [Moles/Vol] 137 mmol/L Normal 136-145 [facility] Comment on above: Performed By: #### 2 4321-2 #### MELISSA WHITEHEAD ([id number]) [facility] ([facility]) [address] [place] [address] 69109 Urea nitrogen [Mass/Vol] 14 mg/dL Normal 6-23 [facility] Comment on above: Performed By: #### 2 4321-2 #### MELISSA WHITEHEAD ([id number]) [facility] ([facility]) [address] [place] [address] 94778 Beta 2 glycoprotein 1 Ab IgA and IgG and IgM panel (S)on 09-26-2023 Beta 2 glycoprotein 1 IgA Qn (S) <0.6 Normal <20.0 [facility] Comment on above: Result Comment: Elev ated [...] By: #### 5 6152-2 #### JASON Baker ([id number]) [facility] ([facility]) [address] [place] [address] 33908 Beta 2 glycoprotein 1 IgG Qn (S) <1.4 Normal <20.0 [facility] Comment on above: Result Comment: Elev ated levels of IgG anti-Beta 2 Glycoprotein-I on 2 occasions at least 12 weeks apart are laboratory criteria for anti-phospholipid syndrome according to an international consensus (J Thromb Haemost 2006 4:295). Performed By: #### 5 6152-2 #### JASON Baker ([id number]) [facility] ([facility]) [address] [place] [address] 27209 Beta 2 glycoprotein 1 IgM Qn (S) 0.2 U/mL Normal <20.0 [facility] Comment on above: Result Comment: Elev ated [...] By: #### 5 6152-2 #### JASON Baker ([id number]) [facility] ([facility]) [address] [place] [address] 48850 CBC panel Auto (Bld)on 09-25 Erythrocyte distribution width (RBC) [Ratio] 13.2 % Normal 11.5-14.5 [facility] Comment on above: Performed By: #### 5 8410-2 #### MELISSA WHITEHEAD ([id number]) [facility] ([facility]) [address] [place] [address] Hematocrit (Bld) [Volume fraction] 41.6 % Normal 36.0-46.0 [facility] Comment on above: Performed By: #### 5 8410-2 #### MELISSA WHITEHEAD ([id number]) [facility] ([facility]) [address] [place] [address] Hemoglobin (Bld) [Mass/Vol] 12.9 g/dL Normal 12.0-16.0 [facility] Comment on above: Performed By: #### 5 8410-2 #### MELISSA WHITEHEAD ([id number]) [facility] ([facility]) [address] [place] [address] 40070 MCH (RBC) [Entitic mass] 27.7 pg Normal 26.0-34.0 [facility] Comment on above: Performed By: #### 5 8410-2 #### MELISSA WHITEHEAD ([id number]) [facility] ([facility]) [address] [place] [address] 38530 MCHC (RBC) [Mass/Vol] 31.0 g/dL Low 32.0-36.0 [facility] Comment on above: Performed By: #### 5 8410-2 #### MELISSA WHITEHEAD ([id number]) [facility] ([facility]) [address] [place], [place] [phone] MCV (RBC) [Entitic vol] 90 fL Normal 80-100 [facility] Comment on above: Performed By: #### 5 8410-2 #### MELISSA WHITEHEAD ([id number]) [facility] ([facility]) [address] [place] [address] 92276 Nucleated RBC/100 WBC (Bld) [Ratio] 0.0 /100 WBCs Normal 0.0-0.0 [facility] Comment on above: Performed By: #### 5 8410-2 #### MELISSA WHITEHEAD ([id number]) [facility] ([facility]) [address] [place] [address] 14701 Platelets (Bld) [#/Vol] 240 x10*3/uL Normal 150-450 [facility] Comment on above: Performed By: #### 5 8410-2 #### MELISSA WHITEHEAD ([id number]) [facility] ([facility]) [address] [place] [address] 95913 RBC (Bld) [#/Vol] 4.65 x10*6/uL Normal 4.00-5.[address] [facility] Comment on above: Performed By: #### 5 8410-2 #### MELISSA WHITEHEAD ([id number]) [facility] ([facility]) [address] [place] [address] WBC (Bld) [#/Vol] 6.9 x10*3/uL Normal 4.4-11.3 [facility] Comment on above: Performed By: #### 5 8410-2 #### MELISSA WHITEHEAD ([id number]) [facility] ([facility]) [address] [place] [address] Cardiolipin Ab IA Qn (S)on 0 09-26-2023 Cardiolipin IgA Qn <0.5 Normal <20.0 [facility] Comment on above: Result Comment: Elev ated levels of IgA anti-cardiolipin have not been included in the laboratory criteria for anti-phospholipid syndrome according to an international consensus (J Thromb Haemost 2006 4:295). It may be helpful in identifying subgroups of patients at risk for specific clinical manifestations of anti-phospholipid syndrome. Performed By: #### 3 180-7 #### JASON Baker ([id number]) [facility] ([facility]) [address] [place] [address] 06495 Cardiolipin IgG IA Qn (S) <1.6 Normal <20.0 [facility] Comment on above: Result Comment: Elev ated levels of IgG anti-cardiolipin on 2 occasions at least 12 weeks apart are laboratory criteria for anti-phospholipid syndrome according to an international consensus (J Thromb Haemost 2006 4:295). Performed By: #### 3 180-7 #### JASON Baker ([id number]) [facility] ([facility]) [address] [place] [address] Cardiolipin IgM IA Qn (S) 0.3 MPL U/mL Normal <20.0 [facility] Comment on above: Result Comment: Elev ated [...] By: #### 3 180-7 #### JASON Baker ([id number]) [facility] ([facility]) [address] [place] [address] Coagulation dilute Elio v iper venom induced/Coagulation dilute Elio viper venom induced.excess phospholipid^post DOAC neutralization^normalizedon 09-26-2023 Coagulation dilute Elio viper venom induced/Coagulation dilute Elio viper venom induced.excess phospholipid^^normalize d 0.99 RATIO Normal [facility] Comment on above: Performed By: #### 9 7641-5 #### JASON Baker ([id number]) [facility] ([facility]) [address] [place] [address] Coagulation dilute Elio viper venom induced/Coagulation dilute Elio viper venom induced.excess phospholipid^post DOAC neutralization^normaliz ed 0.90 RATIO Normal <=1.20 [facility] Comment on above: Performed By: #### 9 7641-5 #### JASON Baker ([id number]) [facility] ([facility]) [address] [place] [address] dRVVT/dRVVT.excess phospholipid Coag (PPP) [Ratio] 0.89 RATIO Normal [facility] Comment on above: Performed By: #### 9 7641-5 #### JASON Baker ([id number]) [facility] ([facility]) [address] [place] [address] F5 gene p.[id number] Molgen Q l (Bld/Tiss)on 09-26-2023 FACTOR V LEIDEN INTERPRETATION SEE COMMENT Normal [facility] Comment on above: Result Comment: INTE RPRETATION [...] analytical performance characteristics have been determined by [facility]. This test has not been cleared or approved by the FDA; however, the FDA has determined that such approval is not necessary. The [facility] is CAP accredited and certified under the Clinical Laboratory Improvement Amendments of 1988 (CLIA-88) as qualified to perform high complexity testing. Performed By: #### 2 1668-9 #### VANNA GROSS ([id number]) [facility] ([facility]) [address] [place] [address] FACTOR V LEIDEN RESULT Normal Normal Normal Un [facility] Comment on above: Performed By: #### 2 1668-9 #### VANNA GROSS ([id number]) [facility] ([facility]) [facility] [place] [address] Fibrin D-dimer FEUon 024 Fibrin D-dimer FEU (PPP) [Mass/Vol] <215 Normal <=500 [facility] Comment on above: Order Comment: The V TE Exclusion D-Dimer assay is reported in ng/mL Fibrinogen Equivalent Units (FEU). Per boat tester's instructions for use, a value of less [...] By: #### 4 8065-7 #### TORRES VENTURA ([id number]) [facility] ([facility]) [address] [place] [address] PROTHROMBIN GENE MUTATION AN ALYSISon 09-26-2023 ELECTRONICALLY SIGNED BY Odalis Hensley MD PhD [facility] Comment on above: Performed By: #### G PRO2 #### VANNA GROSS ([id number]) [facility] ([facility]) [address] [place] [address] Performed By: #### 2 1668-9 #### VANNA GROSS ([id number]) [facility] ([facility]) [address] [place] [address] FACTOR II-PROTHROMBIN INTERPRETATION SEE COMMENT [facility] Comment on above: Result Comment: INTE RPRETATION NORMAL result indicates there is no detection of Prothrombin (F2) c.*97G>A ([id number]) pathogenic variant. There would not be increased [...] that such approval is not necessary. The [facility] is CAP accredited and certified under the Clinical Laboratory Improvement Amendments of 1988 (CLIA-88) as qualified to perform high complexity testing. Performed By: #### G PRO2 #### VANNA GROSS ([id number]) [facility] ([facility]) [address] [place], [place] [address] FACTOR II-PROTHROMBIN RESULT Normal Normal Normal [facility] Comment on above: Performed By: #### G PRO2 #### VANNA GROSS ([id number]) [facility] ([facility]) [address] [place] [address] 58826 CNOVon 09-23-2023 CNOV Office Visit (OBGYWM) KEAGAN ALICIA ([id number]) 4 F Date Time Provider Department 09/23/23 [...] some nausea - continue with zofran PRN Parker diet reviewed I have reviewed and updated [...] [K59.1] Order(s):CONSULT TO GASTROENTEROLOGY [9010] Order #: [id number]: 1 FUTURE CONSULT TO GENERAL SURGERY [9011] Order #: [id number]: 1 FUTURE Prescriptions as of 09/23/2023 - [...] by MARY JO BARNETT on 09/23/23 Normal [facility] CBC panel Auto (Bld)on 09-17 Erythrocyte distribution width (RBC) [Ratio] 13.3 % 11.5 - 15.0 % [facility] Hematocrit (Bld) [Volume fraction] 41.3 % 36.0 - 46.0 % [facility] Hemoglobin (Bld) [Mass/Vol] 13.5 g/dL 11.5 - 15.5 g/dL [facility] Interpretation and review of laboratory results Normal [facility] MCH (RBC) [Entitic mass] 28.3 pg 26.0 - 34.0 pg [facility] MCHC (RBC) [Mass/Vol] 32.7 g/dL 30.5 - 36.0 g/dL [facility] MCV (RBC) [Entitic vol] 86.6 fL 80.0 - 100.0 fL [facility] Nucleated RBC (Bld) [#/Vol] NINF [facility] Platelet mean volume (Bld) [Entitic vol] 11.9 fL 9.0 - 12.7 fL [facility] Platelets (Bld) [#/Vol] 188 10*3/uL [facility] RBC (Bld) [#/Vol] 4.77 10*6/uL 3.90 - 5.2 0 m/uL [facility] WBC (Bld) [#/Vol] 4.15 10*3/uL [facility] ANES POSTPROC EVALon 024 ANES POSTPROC EVAL HNO ID: [id number] Author: JOHANNA LAN MD Service: Anesthesiology Author Type: Physician Type: Anesthesia Postprocedure Evaluation Filed: 09/15/2023 11:56 Note Text: POST ANESTHESIA EVALUATION NOTE : 2000 Procedure Summary Date: 09/15/23 Room / Location: [facility] OR / [facility] OR Anesthesia Start: 832 Anesthesia Stop: 924 [...] September 15, 2023 TIME: 11:56 AM CSN: [id number] [facility] ANES PRE-OPon 09-15-2023 ANES PRE-OP HNO ID: [id number] Author: JOHANNA LAN MD Service: Anesthesiology Author Type: Physician Type: Anesthesia Preprocedure Evaluation Filed: 09/15/2023 07:22 Note Text: ANESTHESIOLOGY DAY OF SURGERY NOTE : 2002 Procedure Information Date/Time: 09/15/23 0830 Procedures: LAPAROSCOPY DIAGNOSTIC (Abdomen) REMOVAL INTRAUTERINE DEVICE Location: [place] OR01 / [place] OR Surgeons: Mary Jo Chance MD Estimated [...] and consent discussed: yes. Patient / Responsible Republican agrees to proceed: yes Patient / Surrogate [...] September 15, 2023 TIME: 7:22 AM CSN: [id number] [facility] OPERATIVE NOon 09-15-2023 OPERATIVE NO HNO ID: [id number] Author: MARY JO CHANCE MD Service: Obstetrics Author Type: Physician Type: Operative Report Filed: 09/15/2023 10:07 Note Text: PROCESS CONTROL SUPERVISOR OPERATIVE/PROCEDURE REPORT LOG ID: [id number] Surgery/Procedure Date: 09/15/2023 Incision/Procedure Start Time: 8:51 AM Incision Close/Procedure End Time: 9:22 AM Surgeon(s)/Procedura list(s) and Alteration Manager(s): Surgeon(s) and Role: * Mary Jo Chance MD - Primary * Xin Christiansen DO - Resident - Assisting * Jin Stuart DO - Resident - Assisting Registered Nurse Traffic Signal Supervisor Maintenance: Megan Howell RN Informed Consent: Informed Consent [...] Gee MD Date: 09/15/2023 Time: 10:06 AM [facility] 09-02-2023 [facility] Telephone (PREANME) KEAGAN ALICIA ([id number]) 4 F Date Time Provider Department 09/02/23 JOYCE MISHRA PREERASMOME During your visit today, we recorded the [...] (scheduled 10/03/23)? Thank you, Joyce Mishra PA-C [facility] Yamila Ballard MD 09/02/2023 1:36 PM Signed Responding as Dr. Barnett is out this week. Please notify patient that non emergent surgery needs will need to wait until after her ablation for SVT scheduled in September due to concerns w/ this and recent PE. Dr. Barnett can look at surgery reschedule dates when she returns. MD Benitez Echevarria Jennifer, RN 09/02/2023 2:05 PM Signed Left message for patient to call office. KELLI Barrios Jennifer, RN 09/03/2023 11:19 AM Signed 2nd message left for patient to call the office. Surgery sheet given back to medical surgery nurse to cancel. KELLI Barrios Jennifer, RN 09/05/2023 1:10 PM Signed Patient called the office back after viewing [place] message. States she never received any voicemail messages from our office. Confirmed that we had the correct phone number on file. Patient voiced her frustration. States her [place] Brushing Machine Operator never stated that she would need to [...] light of patient's recent appointment with her wet mix operator Dr. Fernando Noriega on 09/03/23 (AANDP included [...] Continue follow-up with hematology -Echocardiogram done at [facility] showed normal LV and RV function with no valvular abnormalities -For her planned surgery if she stays as inpatient recommend for her to wear SCDs at all times and to use prophylactic subcutaneous heparin. Also discussed early mobilization to prevent VTE # SVT -Follow-up with electrophysiology for outpatient SVT ablation Norbert Fernandes MD [facility] Interventional Cardiology Endovascular Interventions [email or web address] [email or web address] As of Date: 09/02/2023 Noted Allergy [...] Of Date (more content not included)... Normal [facility] Basic metabolic 2000 panelOr dered By: Jason Cordova on 09-01-2023 Anion gap [Moles/Vol] 8 mmol/L 8 - 15 mmol/L [facility] Calcium [Mass/Vol] 8.8 mg/dL 8.5 - 10. 2 mg/dL [facility] Chloride [Moles/Vol] 104 mmol/L 98 - 107 mmol/L [facility] CO2 [Moles/Vol] 25 mmol/L 22 - 30 mmol/L [facility] Creatinine [Mass/Vol] 0.75 mg/dL 0.58 - 0.96 mg/dL [facility] GFR/1.73 sq M.predicted among non-blacks MDRD (S/P/Bld) [Vol rate/Area] 117 mL/min/{1.73_m2} - PINF [facility] Comment on above: Estimated Glomerular Filtration Rate [...] [Mass/Vol] 92 mg/dL 74 - 99 mg/dL [facility] Comment on above: The [place] Diabete s Association (ADA) provides guidance for [...] Standards of Medical Care in Diabetes 2016, [place] [employer]. Diabetes Care. 2016.39(Suppl 1). Interpretation and review of laboratory results Normal [facility] Potassium [Moles/Vol] 4.4 mmol/L 3.7 - 5.1 mmol/L [facility] Sodium [Moles/Vol] 137 mmol/L 136 - 144 mmol/L [facility] Urea nitrogen [Mass/Vol] 9 mg/dL 7 - 21 mg/dL [facility] CBC W Auto Differential pane l (Bld)on 09-01-2023 Basophils (Bld) [#/Vol] NINF C [facility] Basophils/100 WBC (Bld) 0.6 % C [facility] Differential cell count method Nom (Bld) Auto [facility] Eosinophils (Bld) [#/Vol] NINF [facility] Eosinophils/100 WBC (Bld) 0.3 % [facility] Erythrocyte distribution width (RBC) [Ratio] 13.6 % 11.5 - 15.0 % [facility] Hematocrit (Bld) [Volume fraction] 41.6 % 36.0 - 46.0 % [facility] Hemoglobin (Bld) [Mass/Vol] 13.5 g/dL 11.5 - 15.5 g/dL [facility] Immature granulocytes (Bld) [#/Vol] NINF [facility] Immature granulocytes/100 WBC (Bld) 0.0 % [facility] Interpretation and review of laboratory results Abnormal [facility] Lymphocytes (Bld) [#/Vol] 1.48 10*3/uL [facility] Lymphocytes/100 WBC (Bld) 41.7 % [facility] MCH (RBC) [Entitic mass] 28.3 pg 26.0 - 34.0 pg [facility] MCHC (RBC) [Mass/Vol] 32.5 g/dL 30.5 - 36.0 g/dL [facility] MCV (RBC) [Entitic vol] 87.2 fL 80.0 - 100.0 fL [facility] Monocytes (Bld) [#/Vol] 0.38 10*3/uL [facility] Monocytes/100 WBC (Bld) 10.7 % [facility] Neutrophils (Bld) [#/Vol] 1.66 10*3/uL [facility] Neutrophils/100 WBC (Bld) 46.7 % [facility] Nucleated RBC (Bld) [#/Vol] [facility]F [facility] Nucleated RBC/100 WBC (Bld) [Ratio] 0.0 % /100 WBC [facility] Platelet mean volume (Bld) [Entitic vol] 11.9 fL 9.0 - 12.7 fL [facility] Platelets (Bld) [#/Vol] 181 10*3/uL [facility] RBC (Bld) [#/Vol] 4.77 10*6/uL 3.90 - 5.2 0 m/uL [facility] WBC (Bld) [#/Vol] 3.55 10*3/uL [facility] ECG 12 lead (Clinic Performe d)on 08-21-2023 Sinus rhythm ventricular rate 67 QRS 80 QT 396 QTc 418 *Please refer to scanned ECG for final report* [facility] Work Phone: UA DIP,URINE HCG (POC)on Beta HCG ( test) Ql (U) Negative Negative [facility] Comment on above: Location:[facility], [address], [place], [address] Security Patrol Officer (POCT) Internal QC OK [facility] Location:[facility], [address], [place], [address] [facility] POINT OF CARE [facility] US Pelvison 08-19-2023 Indication Pelvic pain, IUD [...] MATERNAL MEDICINE [facility] Radiology Study observation (narrative) [facility] US LOWER EXTREMITY VENO US DUPLEX BILATERALon 07-09-2023 [facility] US LOWER EXTREMITY [place] D[place] [address] [phone], Vascular Lab Report [facility] US LOWER EXTREMITY VENOUS DUPLEX BILATERAL Patient Name: KEAGAN ALICIA Reading Physician: [id number] Swanson MD Study Date: 07/09/2023 Ordering Provider: [id number] NORIEGA MRN/PID: [id number] Fellow: Technologist: Kath Rodriguez RVT/ Date of /Age: 8 2000 / years Technologist 2: Gender: F Admission Status: Outpatient Location Performed: [facility] Diagnosis/ICD: Other pulmonary embolism without acute cor pulmonale-I26.99 CPT Codes: 74017 Peripheral venous duplex scan for DVT complete [...] Spontaneous/Phasic Peroneal Yes None PTV Yes None [id number] Norbert Swanson MD Final Normal [facility] C. trachomatis+N. gonorrhoea e DNA SHYAM+probe Ql (Unsp spec)on 06-27-2023 C. trachomatis rRNA SHYAM+probe Ql (Unsp spec) Negative Negative for Chlamydia trachomatis by amplificaton [facility] Interpretation and review of laboratory results Normal [facility] N. gonorrhoeae rRNA SHYAM+probe Ql (Unsp spec) Negative Negative for Neisseria gonorrhoeae by amplification [facility] TRICHOMONAS VAGINALIS NAATon 06-27-2023 Interpretation and review of laboratory results Normal [facility] T. vaginalis DNA SHYAM+probe Ql (Unsp spec) Negative Negative for Trichomonas vaginalis by amplification [facility] Bacteria identifiedon 2023 Bacteria identified Cx Nom (U) Test: Urine Culture Specimen Source: Clean Catch/Voided Specimen Type: Urine Specimen Date: 06/24/20232045 Result Date: 06/26/2023802 Result Status: Final result Abnormal: No Resulting Lab: [facility] [address] [address] CULTURE No growth Normal [facility] Comment on above: Performed By: #### 2 4323-8 #### TORRES VENTURA ([id number]) [facility] ([facility]) [address] [place] [address] CBC panel Auto (Bld)on 06-23 Erythrocyte distribution width (RBC) [Ratio] 14.7 % High 11.5 - 14.5 % [facility] Hematocrit (Bld) [Volume fraction] 44.3 % 36.0 - 46.0 % [facility] Hemoglobin (Bld) [Mass/Vol] 14.6 g/dL 12.0 - 16.0 g/dL [facility] Interpretation and review of laboratory results Abnormal [facility] MCH (RBC) [Entitic mass] 28.6 pg 26.0 - 34.[address] [facility] MCHC (RBC) [Mass/Vol] 33.0 g/dL 32.0 - 36.0 g/dL [facility] MCV (RBC) [Entitic vol] 87 fL 80 - [address] [facility] Nucleated RBC/100 WBC (Bld) [Ratio] 0.0 % [facility] Platelets (Bld) [#/Vol] 232 10*3/uL [facility] RBC (Bld) [#/Vol] 5.11 10*6/uL [facility] WBC (Bld) [#/Vol] 4.7 10*3/uL [facility] Erythrocyte distribution width (RBC) [Ratio] 14.7 % High 11.5-14.5 [facility] Comment on above: Performed By: #### 2 4323-8 #### MELISSA WHITEHEAD ([id number]) [facility] ([facility]) [address] [place] [address] 13316 Hematocrit (Bld) [Volume fraction] 44.3 % Normal 36.0-46.0 [facility] Comment on above: Performed By: #### 2 4323-8 #### MELISSA WHITEHEAD ([id number]) [facility] ([facility]) [address] [place] [address] 40787 Hemoglobin (Bld) [Mass/Vol] 14.6 g/dL Normal 12.0-16.0 [facility] Comment on above: Performed By: #### 2 4323-8 #### MELISSA WHITEHEAD ([id number]) [facility] ([facility]) [address] [place] [address] 84303 MCH (RBC) [Entitic mass] 28.6 pg Normal 26.0-34.0 [facility] Comment on above: Performed By: #### 2 4323-8 #### MELISSA WHITEHEAD ([id number]) [facility] ([facility]) [address] [place] [address] 38188 MCHC (RBC) [Mass/Vol] 33.0 g/dL Normal 32.0-36.0 [facility] Comment on above: Performed By: #### 2 4323-8 #### MELISSA WHITEHEAD ([id number]) [facility] ([facility]) [address] [place] [address] 70538 MCV (RBC) [Entitic vol] 87 fL Normal 80-100 U [facility] Comment on above: Performed By: #### 2 4323-8 #### MELISSA WHITEHEAD ([id number]) [facility] ([facility]) [address] [place] [address] Nucleated RBC/100 WBC (Bld) [Ratio] 0.0 /100 WBCs Normal 0.0-0.0 [facility] Comment on above: Performed By: #### 2 432-8 #### MELISSA WHITEHEAD ([id number]) [facility] ([facility]) [address] [place] [address] Platelets (Bld) [#/Vol] 232 x10*3/uL Normal 150-450 [facility] Comment on above: Performed By: #### 2 4323-8 #### MELISSA WHITEHEAD ([id number]) [facility] ([facility]) [address] [place] [address] RBC (Bld) [#/Vol] 5.11 x10*6/uL Normal 4.00-5.20 [facility] Comment on above: Performed By: #### 2 4323-8 #### MELISSA WHITEHEAD ([id number]) [facility] ([facility]) [address] [place], [place] [address] WBC (Bld) [#/Vol] 4.7 x10*3/uL Normal 4.4-11.3 [facility] Comment on above: Performed By: #### 2 4323-8 #### MELISSA WHITEHEAD ([id number]) [facility] ([facility]) [address] [place] [address] CT ABDOMEN PELVIS W IV CONTR [place] 06-24-2023 CT ABDOMEN PELVIS W IV CONTRAST Interpreted By: Christa Gagnon, STUDY: CT ABDOMEN PELVIS W IV CONTRAST; 06/24/2023 8:08 pm INDICATION: Signs/Symptoms:pain. COMPARISON: 06/19/2023 ACCESSION NUMBER(S): [id number] ORDERING CLINICIAN: MEGAN BERG TECHNIQUE: Axial CT [...] Christa Gagnon 06/24/2023 9:10 PM Dictation workstation: [id number] [facility] CT Abdomen and Pelvis W cont rast Anjali 06-24-2023 Postsurgical changes of recent cholecystectomy. No fluid collection in the surgical bed. No evidence of acute abdominal or pelvic abnormality. Acute subsegmental pulmonary embolism in the right lower lobe, described on PE CT dated 06/21/2023. MACRO: None Signed by: Christa Gagnon 06/24/2023 9:10 PM Dictation workstation: [id number] Interpreted By: Christa Gagnon, STUDY: CT ABDOMEN PELVIS W IV CONTRAST; 06/24/2023 8:08 pm INDICATION: Signs/Symptoms:pain. COMPARISON: 06/19/2023 ACCESSION NUMBER(S): [id number] ORDERING CLINICIAN: MEGAN BERG TECHNIQUE: Axial CT [...] pm INDICATION: Signs/Symptoms:pain. COMPARISON: 06/19/2023 ACCESSION NUMBER(S): [id number] ORDERING CLINICIAN: MEGAN BERG TECHNIQUE: Axial CT [...] Christa Gagnon 06/24/2023 9:10 PM Dictation workstation: [id number] [facility] Work Phone: Radiology Study observation (narrative) [facility] Work Phone: CT Abdomen and Pelvis W cont rast IVOrdered By: Christa Gagnon on 06-24-[address] [facility] Work Phone: Choriogonadotropin.beta subu niton 06-24-2023 HCG.beta subunit Qn m[IU]/mL Normal <5 [facility] Comment on above: Order Comment: Total HCG measurement is performed using the [facility] [facility] Access Immunoassay which detects intact HCG and free beta HCG subunit. This test is not indicated for use as a tumor marker. HCG testing is performed using a different test methodology at [facility] than other physicians & surgeons hospital. Direct result comparison should only be made within the same method. Performed By: #### 2 4323-8 ###Jody WHITEHEAD ([id number]) [facility] ([facility]) [address] [place] [address] [facility] 06-24-2023 PT Coag (PPP) [Time] 21.2 s High 9.8-12.8 [facility] Comment on above: Performed By: #### 2 4323-8 #### MELISSA VENTURA ([id number]) [facility] ([facility]) [address] [place] [address] Comprehensive metabolic 2000 panelon 06-24-2023 Albumin BCP dye [Mass/Vol] 4.8 g/dL 3.4 - 5.0 g/dL [facility] ALP [Catalytic activity/Vol] 54 U/L 33 - 110 U/L [facility] ALT With P-5'-P [Catalytic activity/Vol] 20 U/L 7 - 45 U/L [facility] Comment on above: Patients treated wit h Sulfasalazine may generate falsely decreased results for ALT. Anion gap [Moles/Vol] 19 mmol/L 10 - 20 mmol/L [facility] AST With P-5'-P [Catalytic activity/Vol] 15 U/L 9 - 39 U/L [facility] Bilirubin [Mass/Vol] 0.7 mg/dL 0.0 - 1.2 mg/dL [facility] Calcium [Mass/Vol] 9.3 mg/dL 8.6 - 10. 3 mg/dL [facility] Chloride [Moles/Vol] 99 mmol/L 98 - 107 mmol/L [facility] CO2 [Moles/Vol] 20 mmol/L Low 21 - 32 mmol/L [facility] Creatinine [Mass/Vol] 0.63 mg/dL 0.50 - 1.05 mg/dL [facility] eGFR - PINF [facility] Comment on above: Calculations of nick mated GFR are performed using the 2020 CKD-EPI Study Refit equation without the race variable for the IDMS-Traceable creatinine methods. https://jasn.asnjournals.org/content/early//ASN.2020 444269 Glucose [Mass/Vol] 61 mg/dL Low 74 - 99 mg/dL [facility] Interpretation and review of laboratory results Abnormal [facility] Potassium [Moles/Vol] 3.9 mmol/L 3.5 - 5.3 mmol/L [facility] Protein [Mass/Vol] 7.2 g/dL 6.4 - 8.2 g/dL Un [facility] Sodium [Moles/Vol] 134 mmol/L Low 136 - 145 mmol/L [facility] Urea nitrogen [Mass/Vol] 7 mg/dL 6 - 23 mg/dL [facility] Albumin BCP dye [Mass/Vol] 4.8 g/dL Normal 3.4-5.0 [facility] Comment on above: Performed By: #### 2 4323-8 #### MELISSA WHITEHEAD ([id number]) [facility] ([facility]) [address] [place] [address] ALP [Catalytic activity/Vol] 54 U/L Normal 33-110 [facility] Comment on above: Performed By: #### 2 4323-8 #### MELISSA WHITEHEAD ([id number]) [facility] ([facility]) [address] [place] [address] ALT With P-5'-P [Catalytic activity/Vol] 20 U/L Normal 7-45 [facility] Comment on above: Result Comment: Gema ents treated with Sulfasalazine may generate falsely decreased results for ALT. Performed By: #### 2 4323-8 #### MELISSA WHITEHEAD ([id number]) [facility] ([facility]) [address] [place] [address] Anion gap [Moles/Vol] 19 mmol/L Normal 10-20 [facility] Comment on above: Performed By: #### 2 4323-8 #### MELISSA WHITEHEAD ([id number]) [facility] ([facility]) [address] [place] [address] 723[address] AST With P-5'-P [Catalytic activity/Vol] 15 U/L Normal 9-39 [facility] Comment on above: Performed By: #### 2 4323-8 #### MELISSA WHITEHEAD ([id number]) [facility] ([facility]) [address] [place] [address] Bilirubin [Mass/Vol] 0.7 mg/dL Normal 0.0-1.2 [facility] Comment on above: Performed By: #### 2 4323-8 #### MELISSA WHITEHEAD ([id number]) [facility] ([facility]) [address] [place] [address] Calcium [Mass/Vol] 9.3 mg/dL Normal 8.6-10.3 [facility] Comment on above: Performed By: #### 2 4323-8 #### MELISSA WHITEHEAD ([id number]) [facility] ([facility]) [facility] [place] [address] Chloride [Moles/Vol] 99 mmol/L Normal 98-107 [facility] Comment on above: Performed By: #### 2 4323-8 #### MELISSA WHITEHEAD ([id number]) [facility] ([facility]) [address] [place] [address] CO2 [Moles/Vol] 20 mmol/L Low 21-32 [facility] Comment on above: Performed By: #### 2 4323-8 #### MELISSA WHITEHEAD ([id number]) [facility] ([facility]) [address] [place] [address] Creatinine [Mass/Vol] 0.63 mg/dL Normal 0.50-1.05 [facility] Comment on above: Performed By: #### 2 4323-8 #### MELISSA WHITEHEAD ([id number]) [facility] ([facility]) [address] [place] [address] 649[address] GFR/1.73 sq M.predicted MDRD (S/P/Bld) [Vol rate/Area] mL/min/{1.73_m2} Normal >60 [facility] Comment on above: Result Comment: Calc ulations of estimated GFR are performed using the 2020 CKD-EPI Study Refit equation without the race variable for the IDMS-Traceable creatinine methods. https://jasn.asnjournals.org/content/early/ASN.2020 912531 Performed By: #### 2 4323-8 #### MELISSA WHITEHEAD ([id number]) [facility] ([facility]) [address] [place] [address] 96633 Glucose [Mass/Vol] 61 mg/dL Low 74-99 [facility] Comment on above: Performed By: #### 2 4323-8 #### MELISSA WHITEHEAD ([id number]) [facility] ([facility]) [address] [place] [address] Potassium [Moles/Vol] 3.9 mmol/L Normal 3.5-5.3 [facility] Comment on above: Performed By: #### 2 4323-8 #### MELISSA WHITEHEAD ([id number]) [facility] ([facility]) [address] [place] [address]167 Protein [Mass/Vol] 7.2 g/dL Normal 6.4-8.2 [facility] Comment on above: Performed By: #### 2 4323-8 #### MELISSA WHITEHEAD ([id number]) [facility] ([facility]) [address] [place] [address] 49913 Sodium [Moles/Vol] 134 mmol/L Low 136-145 [facility] Comment on above: Performed By: #### 2 4323-8 #### MELISSA WHITEHEAD ([id number]) [facility] ([facility]) [address] [place] [address] 60487 Urea nitrogen [Mass/Vol] 7 mg/dL Normal 6-23 [facility] Comment on above: Performed By: #### 2 4323-8 #### MELISSA WHITEHEAD ([id number]) [facility] ([facility]) [address] [place] [address] 98913 HCG.beta subunit Qnon 2023 Interpretation and review of laboratory results Normal [facility] Total HCG measurement is performed using the [employer] Access Immunoassay which detects intact HCG and free beta HCG subunit. This test is not indicated for use as a tumor marker. HCG testing is performed using a different test methodology at [facility] than other physicians & surgeons hospital. Direct result comparison should only be made within the same method. [facility] PT Coag (PPP) [Time]on 06-23 INR Coag (PPP) [Relative time] 1.9 {INR} High 0.9 - 1.[address] [facility] Interpretation and review of laboratory results Abnormal [facility] INR Coag (PPP) [Relative time] 1.9 High 0.9-1.1 [facility] Comment on above: Performed By: #### 2 4323-8 #### MELISSA WHITEHEAD ([id number]) [facility] ([facility]) [address] [place] [address] 19322 Protime-INRon 06-24-2023 PT Coag (PPP) [Time] 21.2 s High [facility] Urinalysis complete W Reflex Culture panel (U)on 06-24-2023 Epithelial cells.squamous Auto (Urine sed) [#/Area] 1-9 (SPARSE) Reference range not established. /HPF [facility] Interpretation and review of laboratory results Abnormal [facility] RBC Auto (Urine sed) [#/Area] >20 Abnormal NONE, 1-2, 3-5 /HPF [facility] WBC Auto (Urine sed) [#/Area] 6-10 Abnormal 1-5, NONE /HPF [facility] Appearance (U) Hazy Normal Clear [facility] Comment on above: Performed By: #### 2 4323-8 #### MELISSA WHTIEHEAD ([id number]) [facility] ([facility]) [address] [place] [address] Bilirubin (U) [Mass/Vol] Negative Normal NEGATIVE [facility] Comment on above: Performed By: #### 2 4323-8 #### MELISSA WHITEHEAD ([id number]) [facility] ([facility]) [address] [place], [place] [address] Color (U) Idalmis Normal Straw, Yellow [facility] Comment on above: Performed By: #### 2 4323-8 #### MELISSA WHITEHEAD ([id number]) [facility] ([facility]) [address] [place] [address] 99948 Epithelial cells.squamous Auto (Urine sed) [#/Area] 1-9 (SPARSE) Normal Reference range not established. [facility] Comment on above: Performed By: #### 2 4323-8 #### MELISSA WHITEHEAD ([id number]) [facility] ([facility]) [address] [place] [address] 93700 Glucose Auto test strip (U) [Mass/Vol] Negative Normal NEGATIVE [facility] Comment on above: Performed By: #### 2 432-8 #### MELISSA WHITEHEAD ([id number]) [facility] ([facility]) [address] [place] [address]9747 Ketones (U) [Mass/Vol] 80 (2+) Abnormal NEGATIVE Un [facility] Comment on above: Performed By: #### 2 4322-8 #### MELISSA WHITEHEAD ([id number]) [facility] ([facility]) [address] [place] [address] 18273 Leukocyte esterase Auto test strip Ql (U) Negative Normal NEGATIVE [facility] Comment on above: Performed By: #### 2 4322-8 #### MELISSA WHITEHEAD ([id number]) [facility] ([facility]) [address] [place] [address] 26472 Nitrite Auto test strip Ql (U) Negative Normal NEGATIVE [facility] Comment on above: Performed By: #### 2 4322-8 #### MELISSA WHITEHEAD ([id number]) [facility] ([facility]) [address] [place] [address] 26170 pH (U) 6.0 [pH] Normal 5.0, 5.5, 6.0, 6.5, 7.0, 7.5, 8.0 [facility] Comment on above: Performed By: #### 2 4322-8 #### MELISSA WHITEHEAD ([id number]) [facility] ([facility]) [address] [place] [address] 34185 Protein (U) [Mass/Vol] 100 (2+) Normal NEGATIVE [facility] Comment on above: Performed By: #### 2 4322-8 #### MELISSA WHITEHEAD ([id number]) [facility] ([facility]) [address] [place] [address] 76603 RBC (U) [#/Vol] LARGE (3+) Abnormal NEGATIVE [facility] Comment on above: Performed By: #### 2 432-8 #### MELISSA WHITEHEAD ([id number]) [facility] ([facility]) [address] [place] [address] RBC Auto (Urine sed) [#/Area] >20 Abnormal NONE, 1-2, 3-5 [facility] Comment on above: Performed By: #### 2 4323-8 #### MELISSA WHITEHEAD ([id number]) [facility] ([facility]) [address] [place] [address] Specific gravity (U) [Rel density] 1.038 Normal 1.005-1.035 [facility] Comment on above: Performed By: #### 2 4323-8 #### MELISSA WHITEHEAD ([id number]) [facility] ([facility]) [address] [place] [address] Urobilinogen (U) [Mass/Vol] mg/dL Normal <2.0 [facility] Comment on above: Performed By: #### 2 4323-8 #### MELISSA WHITEHEAD ([id number]) [facility] ([facility]) [address] [place] [address] WBC Auto (Urine sed) [#/Area] 6-10 Abnormal 1-5, NONE [facility] Comment on above: Performed By: #### 2 4323-8 #### MELISSA WHITEHEAD ([id number]) [facility] ([facility]) [address] [place] [address] Urinalysis complete W Reflex Culture panel (U)Ordered By: Jacinta Armenta on 06-24-2023 Appearance (U) Hazy Abnormal Clear [facility] Bilirubin (U) [Mass/Vol] Negative NEGATIVE [facility] Color (U) Idalmis Abnormal Straw, Yellow [facility] Glucose Auto test strip (U) [Mass/Vol] Negative NEGATIVE mg/dL [facility] Interpretation and review of laboratory results Abnormal [facility] Ketones (U) [Mass/Vol] 80 (2+) Abnormal NEGATIVE mg/d L [facility] Leukocyte esterase Auto test strip Ql (U) Negative NEGATIVE [facility] Nitrite Auto test strip Ql (U) Negative NEGATIVE [facility] pH (U) 6.0 [pH] 5.0, 5.5, 6.0, 6.5, 7.0, 7.5, 8.[address] [facility] Protein (U) [Mass/Vol] 100 (2+) Abnormal NEGATIVE mg/d L [facility] RBC (U) [#/Vol] LARGE (3+) Abnormal NEGATIVE [facility] Specific gravity (U) [Rel density] 1.038 Abnormal 1.005 - 1.[address] [facility] Urobilinogen (U) [Mass/Vol] mg/dL NINF - 2.0 mg/dL [facility] hCG, quantitative, on 06-24-2023 HCG.beta subunit Qn NINF Unive [facility] BETA HCG, QUANTITATIVE FOR E Don 06-22-2023 HCG.beta subunit Qn m[IU]/mL Normal <5.0 [facility] Comment on above: Order Comment: Speci men Type: BLOOD SPECIMEN Ordering Facility: [facility] Address: [address] [place] [address] Result Comment: Nega tive Performed By: #### H CGED #### [facility] CLIA [id number] [address] OF [facility] CBC W Auto Differential pane l (Bld)on 06-22-2023 Basophils (Bld) [#/Vol] 0.03 10*3/uL Normal <0.11 [facility] Comment on above: Order Comment: Speci men Type: BLOOD SPECIMEN Ordering Facility: [facility] Address: [address] [place] [address] Performed By: #### 3 3762-6, 67307-7, 75341-7, 3040-3, HSTNT #### [facility] CLIA [id number] [address] Basophils/100 WBC (Bld) 0.6 % Normal [facility] Comment on above: Order Comment: Speci men Type: BLOOD SPECIMEN Ordering Facility: [facility] Address: [address] [place] [address] Performed By: #### 3 3762-6, 09241-7, 29773-4, 3040-3, HSTNT #### [facility] CLIA [id number] [address] [place] [address] [place] Differential cell count method Nom (Bld) Auto Normal [facility] Comment on above: Order Comment: Speci men Type: BLOOD SPECIMEN Ordering Facility: [facility] Address: [address] [place] [address] Performed By: #### 3 3762-6, 73765-4, 61869-0, 3040-3, HSTNT #### [facility] CLIA [id number] [address] [place] [address] [place] Eosinophils (Bld) [#/Vol] 0.20 10*3/uL Normal <0.46 [facility] Comment on above: Order Comment: Speci men Type: BLOOD SPECIMEN Ordering Facility: [facility] Address: [address] [place] [address] Performed By: #### 3 3762-6, 66634-6, 14900-3, 3040-3, HSTNT #### [facility] CLIA [id number] [address] [place] [address] [place] Eosinophils/100 WBC (Bld) 3.8 % Normal [facility] Comment on above: Order Comment: Speci men Type: BLOOD SPECIMEN Ordering Facility: [facility] Address: [address] [place] [address] Performed By: #### 3 3762-6, 67964-4, 15112-2, 3040-3, HSTNT #### [facility] CLIA [id number] [address] [place] [address] [place] Erythrocyte distribution width (RBC) [Ratio] 14.6 % Normal 11.5-15.0 [facility] Comment on above: Order Comment: Speci men Type: BLOOD SPECIMEN Ordering Facility: [facility] Address: [address] [place] [address] Performed By: #### 3 3762-6, 91539-2, 95592-0, 3040-3, HSTNT #### [facility] CLIA [id number] [address] [place] [address] [place] Hematocrit (Bld) [Volume fraction] 42.1 % Normal 36.0-46.0 [facility] Comment on above: Order Comment: Speci men Type: BLOOD SPECIMEN Ordering Facility: [facility] Address: [address] [place] [address] Performed By: #### 3 3762-6, 18238-1, 72533-8, 3040-3, HSTNT #### [facility] CLIA [id number] [address] [place] [address] [place] Hemoglobin (Bld) [Mass/Vol] 14.0 g/dL Normal 11.5-15.5 [facility] Comment on above: Order Comment: Speci men Type: BLOOD SPECIMEN Ordering Facility: [facility] Address: [address] [place] [address] Performed By: #### 3 3762-6, 54871-9, 94414-1, 3040-3, HSTNT #### [facility] CLIA [id number] [address] [place] [address] [place] Immature granulocytes (Bld) [#/Vol] 10*3/uL Normal <0.10 [facility] Comment on above: Order Comment: Speci men Type: BLOOD SPECIMEN Ordering Facility: [facility] Address: [address] [place] [address] Performed By: #### 3 3762-6, 45948-0, 98577-5, 3040-3, HSTNT #### [facility] CLIA [id number] [address] [place] [address] [place] Immature granulocytes/100 WBC (Bld) 0.2 % Normal [facility] Comment on above: Order Comment: Speci men Type: BLOOD SPECIMEN Ordering Facility: [facility] Address: [address] [place] [address] Performed By: #### 3 3762-6, 54914-9, 50676-8, 3040-3, HSTNT #### [facility] CLIA [id number] [address] [place] [address] [place] Lymphocytes (Bld) [#/Vol] 2.05 10*3/uL Normal 1.00-4.00 [facility] Comment on above: Order Comment: Speci men Type: BLOOD SPECIMEN Ordering Facility: [facility] Address: [address] [place] [address] Performed By: #### 3 3762-6, 71770-6, 66152-1, 3040-3, HSTNT #### [facility] CLIA [id number] [address] Lymphocytes/100 WBC (Bld) 38.5 % Normal [facility] Comment on above: Order Comment: Speci men Type: BLOOD SPECIMEN Ordering Facility: [facility] Address: [address] [place] [address] Performed By: #### 3 3762-6, 31479-9, 90867-6, 3040-3, HSTNT #### [facility] CLIA [id number] [address] MCH (RBC) [Entitic mass] 28.4 pg Normal 26.0-34.0 [facility] Comment on above: Order Comment: Speci men Type: BLOOD SPECIMEN Ordering Facility: [facility] Address: [address] [place] [address] Performed By: #### 3 3762-6, 09416-1, 48880-1, 3040-3, HSTNT #### [facility] CLIA [id number] [address] MCHC (RBC) [Mass/Vol] 33.3 g/dL Normal 30.5-36.0 [facility] Comment on above: Order Comment: Speci men Type: BLOOD SPECIMEN Ordering Facility: [facility] Address: [address] [place] [address] Performed By: #### 3 3762-6, 72318-2, 55975-1, 3040-3, HSTNT #### [facility] CLIA [id number] [address] MCV (RBC) [Entitic vol] 85.4 fL Normal 80.0-100.0 [facility] Comment on above: Order Comment: Speci men Type: BLOOD SPECIMEN Ordering Facility: [facility] Address: [address] [place] [address] Performed By: #### 3 3762-6, 10198-7, 65381-8, 3040-3, HSTNT #### [facility] CLIA [id number] [address] [place] [address] [place] Monocytes (Bld) [#/Vol] 0.31 10*3/uL Normal <0.87 [facility] Comment on above: Order Comment: Speci men Type: BLOOD SPECIMEN Ordering Facility: [facility] Address: [address] [place] [address] Performed By: #### 3 3762-6, 81671-1, 62934-7, 3040-3, HSTNT #### [facility] CLIA [id number] [address] [place] Monocytes/100 WBC (Bld) 5.8 % Normal [facility] Comment on above: Order Comment: Speci men Type: BLOOD SPECIMEN Ordering Facility: [facility] Address: [address] [place] [address] Performed By: #### 3 3762-6, 53361-8, 22179-7, 3040-3, HSTNT #### [facility] CLIA [id number] [address] [place] [address] [place] Neutrophils (Bld) [#/Vol] 2.72 10*3/uL Normal 1.45-7.50 [facility] Comment on above: Order Comment: Speci men Type: BLOOD SPECIMEN Ordering Facility: [facility] Address: [address] [place] [address] Performed By: #### 3 3762-6, 10935-5, 25480-0, 3040-3, HSTNT #### [facility] CLIA [id number] [address] [place] Neutrophils/100 WBC (Bld) 51.1 % Normal [facility] Comment on above: Order Comment: Speci men Type: BLOOD SPECIMEN Ordering Facility: [facility] Address: [address], [place] [address] Performed By: #### 3 3762-6, 42127-7, 30504-8, 3040-3, HSTNT #### [facility] CLIA [id number] [address] [place] [address] [place] Nucleated RBC (Bld) [#/Vol] 10*3/uL Normal <0.01 [facility] Comment on above: Order Comment: Speci men Type: BLOOD SPECIMEN Ordering Facility: [facility] Address: [address] [place] [address] Performed By: #### 3 3762-6, 55488-9, 16452-6, 3040-3, HSTNT #### [facility] CLIA [id number] [address] [place] [address] [place] Nucleated RBC/100 WBC (Bld) [Ratio] 0.0 /100 WBC Normal [facility] Comment on above: Order Comment: Speci men Type: BLOOD SPECIMEN Ordering Facility: [facility] Address: [address] [place] [address] Performed By: #### 3 3762-6, 96297-1, 18429-1, 3040-3, HSTNT #### [facility] CLIA [id number] [address] [place] [address] [place] Platelet mean volume (Bld) [Entitic vol] 11.4 fL Normal 9.0-12.7 [facility] Comment on above: Order Comment: Speci men Type: BLOOD SPECIMEN Ordering Facility: [facility] Address: [address] [place] [address] Performed By: #### 3 3762-6, 19650-5, 48616-1, 3040-3, HSTNT #### [facility] CLIA [id number] [address] [place] [address] [place] Platelets (Bld) [#/Vol] 210 10*3/uL Normal 150-400 [facility] Comment on above: Order Comment: Speci men Type: BLOOD SPECIMEN Ordering Facility: [facility] Address: [address] [place] [address] Performed By: #### 3 3762-6, 79843-6, 58248-3, 3040-3, HSTNT #### [facility] CLIA [id number] [address] [place] [address] [place] RBC (Bld) [#/Vol] 4.93 10*6/uL Normal 3.90-5.20 [facility] Comment on above: Order Comment: Speci men Type: BLOOD SPECIMEN Ordering Facility: [facility] Address: [address] [place] [address] Performed By: #### 3 3762-6, 59107-0, 63607-4, 3040-3, HSTNT #### [facility] CLIA [id number] [address] [place] [address] [place] WBC (Bld) [#/Vol] 5.32 10*3/uL Normal 3.70-11.00 [facility] Comment on above: Order Comment: Speci men Type: BLOOD SPECIMEN Ordering Facility: [facility] Address: [address] [place] [address] Performed By: #### 3 3762-6, 01825-5, 88329-4, 3040-3, HSTNT #### [facility] CLIA [id number] [address] OF [place] CT ABD/PEL W IVCONon 024 CT ABD/PEL W IVCON * * *Final Report* * * DATE OF EXAM: Jun 22 2023 2:12PM [facility] [place] ABD/PEL W IVCON / [...] of an acute intra-abdominal or pelvic process Blue Line Operator: MARIETTA Transcribe Date/Time: Jun 22 2023 2:23P Dictated by : BRISSA FAIRBANKS MD This examination was interpreted and the report reviewed and electronically signed by: BRISAS FAIRBANKS MD on Jun 22 2023 2:29PM EST [id number] CN Normal [facility] Comprehensive metabolic 2000 panelon 06-22-2023 Albumin [Mass/Vol] 4.4 g/dL Normal 3.9-4.9 [facility] Comment on above: Order Comment: Speci men Type: BLOOD SPECIMEN Ordering Facility: [facility] Address: [address] [place] [address] Performed By: #### 3 3762-6, 46118-6, 22811-1, 3040-3, HSTNT #### [facility] CLIA [id number] [address] [place] [address] [place] [facility] ALP [Catalytic activity/Vol] 61 U/L Normal 34-123 [facility] Comment on above: Order Comment: Speci men Type: BLOOD SPECIMEN Ordering Facility: [facility] Address: [address] [place] [address] Performed By: #### 3 3762-6, 08956-5, 59171-5, 3040-3, HSTNT #### [facility] CLIA [id number] [address] [place] [id number] [place] ALT [Catalytic activity/Vol] 27 U/L Normal 7-38 [facility] Comment on above: Order Comment: Speci men Type: BLOOD SPECIMEN Ordering Facility: [facility] Address: [address] [place] [address] Performed By: #### 3 3762-6, 20890-2, 08465-4, 3040-3, HSTNT #### [facility] CLIA [id number] [address] [place] [address] [place] Anion gap [Moles/Vol] 15 mmol/L Normal 9-18 [facility] Comment on above: Order Comment: Speci men Type: BLOOD SPECIMEN Ordering Facility: [facility] Address: [address] [place] [address] Performed By: #### 3 3762-6, 49833-7, 35948-2, 3040-3, HSTNT #### [facility] CLIA [id number] [address] [place] AST [Catalytic activity/Vol] 18 U/L Normal 13-35 [facility] Comment on above: Order Comment: Speci men Type: BLOOD SPECIMEN Ordering Facility: [facility] Address: [address] [place] [address] Performed By: #### 3 3762-6, 03805-1, 55016-9, 3040-3, HSTNT #### [facility] CLIA [id number] [address] [place] Bilirubin [Mass/Vol] 0.6 mg/dL Normal 0.2-1.3 [facility] Comment on above: Order Comment: Speci men Type: BLOOD SPECIMEN Ordering Facility: [facility] Address: [address] [place] [address] Performed By: #### 3 3762-6, 80947-5, 06444-3, 3040-3, HSTNT #### [facility] CLIA [id number] [address] STATES OF [facility] Calcium [Mass/Vol] 9.1 mg/dL Normal 8.5-10.2 [facility] Comment on above: Order Comment: Speci men Type: BLOOD SPECIMEN Ordering Facility: [facility] Address: [address] [place] [address] Performed By: #### 3 3762-6, 60381-4, 88932-6, 3040-3, HSTNT #### [facility] CLIA [id number] [address] [place] [address] [place] Chloride [Moles/Vol] 99 mmol/L Normal 97-105 [facility] Comment on above: Order Comment: Speci men Type: BLOOD SPECIMEN Ordering Facility: [facility] Address: [address] [place] [address] Performed By: #### 3 3762-6, 74018-8, 11723-9, 3040-3, HSTNT #### [facility] CLIA [id number] [address] [place] [address] [place] CO2 [Moles/Vol] 22 mmol/L Normal 22-30 [facility] Comment on above: Order Comment: Speci men Type: BLOOD SPECIMEN Ordering Facility: [facility] Address: [address] [place] [address] Performed By: #### 3 3762-6, 79459-2, 43674-2, 3040-3, HSTNT #### [facility] CLIA [id number] [address] [place] [address] [place] Creatinine [Mass/Vol] 0.68 mg/dL Normal 0.58-0.96 [facility] Comment on above: Order Comment: Speci men Type: BLOOD SPECIMEN Ordering Facility: [facility] Address: [address] [place] [address] Performed By: #### 3 3762-6, 68815-9, 17950-9, 3040-3, HSTNT #### [facility] CLIA [id number] [address] [place] [address] [place] Creatinine and Glomerular filtration rate.predicted panel (S/P/Bld) 128 mL/min/1.73m??? Normal >=60 [facility] Comment on above: Order Comment: Speci men Type: BLOOD SPECIMEN Ordering Facility: [facility] Address: [address] [place] [address] Result Comment: Nick mated Glomerular Filtration Rate [...] actual GFR. Performed By: #### 3 3762-6, 57461-2, 03978-7, 3040-3, HSTNT #### [facility] CLIA [id number] [address] [place] [address] [place] Glucose [Mass/Vol] 67 mg/dL Low 74-99 [facility] Comment on above: Order Comment: Kayli moon Type: BLOOD SPECIMEN Ordering Facility: [facility] Address: [address] [place] [address] Result Comment: The [employer] (ADA) provides guidance for cutoff [...] Standards of Medical Care in Diabetes 2016, [employer]. Diabetes Care. 2016.39(Suppl 1). Performed By: #### 3 3762-6, 96438-3, 75020-0, 3040-3, HSTNT #### [facility] CLIA [id number] [address] [place] [address] [place] Potassium [Moles/Vol] 3.6 mmol/L Low 3.7-5.1 [facility] Comment on above: Order Comment: Kayli moon Type: BLOOD SPECIMEN Ordering Facility: [facility] Address: [address] [place] [id number] Performed By: #### 3 3762-6, 78724-1, 55274-1, 3040-3, HSTNT #### [facility] CLIA [id number] [address] [place] [address] [place] Protein [Mass/Vol] 6.9 g/dL Normal 6.3-8.0 [facility] Comment on above: Order Comment: Speci men Type: BLOOD SPECIMEN Ordering Facility: [facility] Address: [address] [place] [address] Performed By: #### 3 3762-6, 22993-8, 20994-4, 3040-3, HSTNT #### [facility] CLIA [id number] [address] [place] Sodium [Moles/Vol] 136 mmol/L Normal 136-144 [facility] Comment on above: Order Comment: Speci men Type: BLOOD SPECIMEN Ordering Facility: [facility] Address: [address] [place] [address] Performed By: #### 3 3762-6, 85567-7, 33608-9, 3040-3, HSTNT #### [facility] CLIA [id number] [address] [place] Urea nitrogen [Mass/Vol] 9 mg/dL Normal 7-21 [facility] Comment on above: Order Comment: Speci men Type: BLOOD SPECIMEN Ordering Facility: [facility] Address: [address] [place] [address] Performed By: #### 3 3762-6, 84618-4, 01184-1, 3040-3, HSTNT #### [facility] CLIA [id number] [address] OF [place] ED NOTEon 06-22-2023 ED NOTE HNO ID: [id number] Author: CLAU WHITE RN Service: Nursing Author Type: Registered Nurse Type: ED Notes Filed: 06/22/2023 15:45 Note Text: Pt verbalizes understanding of follow up with PCP and prescriptions x1. Pt stable and ambulatory. IV removed. No further questions at this time. [facility] ED PROV NOTEon 06-22-2023 ED PROV NOTE HNO ID: [id number] Author: MALIA GUTIERREZ DO Service: Emergency Medicine Author Type: Physician Type: ED Provider Notes Filed: 06/22/2023 19:06 Note Text: ED Provider Note Patient Name: Keagan Alicia : 2000 SERVICE DATE: 06/22/23 History Patient presents with: Multiple Concerns: Gallbladder removed 06/17/23 at [facility]. Having issues with infection/pain since. A small blood clot was found on her lung yesterday and was placed on blood thinner (eliquis) She is shaky and still having vomiting. Keagan Alicia is a 22-year-old female who is presenting to the emergency department with multiple concerns. Patient had a cholecystectomy done at [facility] on Friday. She states since [...] Procedure Laterality Date - CHOLECYSTECTOMY HX 06/17/2023 [facility] - TONSILLECTOMY HX FAMILY HISTORY Problem Relation [...] similar comp (more content not included)... Normal [facility] FLUABV+SARS-CoV-2+RSV Pnl Re sp SHYAM+probeon 06-22-2023 FLUABV+SARS-CoV-2+RSV Pnl Resp SHYAM+probe COVID 19 RESULT: Not detected The method used is RT-PCR or an equivalent NAAT method. Reference Range(the expected result in uninfected individuals): Not detected INFLUENZA A PCR: Not detected INFLUENZA B PCR: Not detected RSV PCR: Not detected Normal [facility] Comment on above: Performed By: #### 9 5941-1 #### [facility] CLIA [id number] [address] [place], [place] [id number] [place] [address] OF [place] Gas and Carbon monoxide pane l (BldV)on 06-22-2023 BASE DEFICIT, VENOUS -2 mmol/L Normal -2-0 [facility] Comment on above: Order Comment: Kayli moon Type: VENOUS BLOOD SPECIMEN Ordering Facility: [facility] Address: [address] [place] [address] Performed By: #### 2 4344-4 #### [facility] CLIA [id number] [facility] [address] [address] Carboxyhemoglobin (BldV) [Mass fraction] <1.0 Normal 0.0-2.0 [facility] Comment on above: Order Comment: Kayli moon Type: VENOUS BLOOD SPECIMEN Ordering Facility: [facility] Address: [address] [place] [address] Result Comment: Carb oxyhemoglobin Reference Range for Smokers: 2.0-8.0% Performed By: #### 2 4344-4 #### [facility] CLIA [id number] [facility] [address] [address] CO2 (BldV) [Partial pressure] 43 mm[Hg] Normal 42-55 [facility] Comment on above: Order Comment: Kayli moon Type: VENOUS BLOOD SPECIMEN Ordering Facility: [facility] Address: [address] [place] [address] Performed By: #### 2 4344-4 #### [facility] CLIA [id number] [facility] [address] [address] CO2 adjusted to patient's actual temperature (BldV) [Partial pressure] Normal [facility] Comment on above: Order Comment: Speci men Type: VENOUS BLOOD SPECIMEN Ordering Facility: [facility] Address: [address] [place] [address] Performed By: #### 2 4344-4 #### [facility] CLIA [id number] [facility] [address] [address] HCO3 (Bld) [Moles/Vol] 23 mmol/L Low 24-28 [facility] Comment on above: Order Comment: Speci men Type: VENOUS BLOOD SPECIMEN Ordering Facility: [facility] Address: [address] [place] [address] Performed By: #### 2 4344-4 #### [facility] CLIA [id number] [facility] [address] [address] Hemoglobin (Bld) [Mass/Vol] 14.7 g/dL Normal 11.5-15.5 [facility] Comment on above: Order Comment: Speci men Type: VENOUS BLOOD SPECIMEN Ordering Facility: [facility] Address: [address] [place] [address] Performed By: #### 2 4344-4 #### [facility] CLIA [id number] [facility] [address] [address] Lactate [Moles/Vol] 1.0 mmol/L Normal 0.5-2.2 [facility] Comment on above: Order Comment: Speci men Type: VENOUS BLOOD SPECIMEN Ordering Facility: [facility] Address: [address] [place] [address] Performed By: #### 2 4344-4 #### [facility] CLIA [id number] [facility] [address] [address] Methemoglobin (Bld) [Mass fraction] % Normal 0.0-1.5 [facility] Comment on above: Order Comment: Speci men Type: VENOUS BLOOD SPECIMEN Ordering Facility: [facility] Address: [address] [place] [address] Performed By: #### 2 4344-4 #### [facility] CLIA [id number] [facility] [address] [address] O2 THERAPY RA=Room Air Normal [facility] Comment on above: Order Comment: Speci men Type: VENOUS BLOOD SPECIMEN Ordering Facility: [facility] Address: [address] [place] [address] Performed By: #### 2 4344-4 #### [facility] CLIA [id number] [facility] [address] [address] Oxygen (BldV) [Partial pressure] mm[Hg] Low 35-45 [facility] Comment on above: Order Comment: Speci men Type: VENOUS BLOOD SPECIMEN Ordering Facility: [facility] Address: [address] [place] [address] Performed By: #### 2 4344-4 #### [facility] CLIA [id number] [facility] [address] [address] Oxygen adjusted to patient's actual temperature (BldV) [Partial pressure] Normal [facility] Comment on above: Order Comment: Speci men Type: VENOUS BLOOD SPECIMEN Ordering Facility: [facility] Address: [address] [place] [address] Performed By: #### 2 4344-4 #### [facility] CLIA [id number] [facility] [address] [address] Oxyhemoglobin (BldV) [Mass fraction] 43 % Low 60-85 [facility] Comment on above: Order Comment: Speci men Type: VENOUS BLOOD SPECIMEN Ordering Facility: [facility] Address: [address] [place] [address] Performed By: #### 2 4344-4 #### [facility] CLIA [id number] [facility] [address] [address] pH (BldV) 7.35 [pH] Normal 7.32-7.42 [facility] Comment on above: Order Comment: Kayli moon Type: VENOUS BLOOD SPECIMEN Ordering Facility: [facility] Address: [address] [place], [place] [address] Performed By: #### 2 4344-4 #### [facility] CLIA [id number] [facility] [address] [address] pH adjusted to patient's actual temperature (BldV) Normal [facility] Comment on above: Order Comment: Kayli moon Type: VENOUS BLOOD SPECIMEN Ordering Facility: [facility] Address: [address] [place] [address] Performed By: #### 2 4344-4 #### [facility] CLIA [id number] [facility] [address] [place] [address] Potassium [Moles/Vol] 3.4 mmol/L Low 3.5-5.0 [facility] Comment on above: Order Comment: Kayli moon Type: VENOUS BLOOD SPECIMEN Ordering Facility: [facility] Address: [address] [place] [address] Performed By: #### 2 4344-4 #### [facility] CLIA [id number] [facility] [address] [address] HIGH SENSITIVITY TROPONIN To n 06-22-2023 Troponin T.cardiac High sensitivity method [Mass/Vol] <6 Normal <12 [facility] Comment on above: Order Comment: Kayli moon Type: BLOOD SPECIMEN Ordering Facility: [facility] Address: [address] [place] [address] Result Comment: When assessing risk for acute [...] day MACE. Performed By: #### 3 3762-6, 21052-0, 51772-1, 3040-3, HSTNT #### [facility] CLIA [id number] [address] [place] [address] [place] Lipase SerPl-cCncon 06-22-19 24 Lipase [Catalytic activity/Vol] 32 U/L Normal 16-61 [facility] Comment on above: Order Comment: Speci men Type: BLOOD SPECIMEN Ordering Facility: [facility] Address: [address] [place] [address] Performed By: #### 3 3762-6, 09195-4, 16267-9, 3040-3, HSTNT #### [facility] CLIA [id number] [address] [place] [address] [place] Magnesium SerPl-mCncon 06-21 Magnesium [Mass/Vol] 1.7 mg/dL Normal 1.7-2.3 [facility] Comment on above: Order Comment: Speci men Type: BLOOD SPECIMEN Ordering Facility: [facility] Address: [address] [place] [address] Performed By: #### 3 3762-6, 76492-6, 85008-6, 3040-3, HSTNT #### [facility] CLIA [id number] [address] [place] NT-proBNP SerPl-mCncon 06-21 Natriuretic peptide.B prohormone N-Terminal [Mass/Vol] 75 pg/mL Normal <125 [facility] Comment on above: Order Comment: Speci men Type: BLOOD SPECIMEN Ordering Facility: [facility] Address: [address] [place] [address] Performed By: #### 3 3762-6, 26539-8, 07640-6, 3040-3, HSTNT #### [facility] CLIA [id number] [address] [place] [address] [place] Urinalysis complete panel (U )on 06-22-2023 Bacteria LM.HPF (Urine sed) [#/Area] Few Abnormal None Seen [facility] Comment on above: Order Comment: Speci men Type: URINE SPECIMEN Ordering Facility: [facility] Address: [address] [place] [address] Performed By: #### 2 4356-8 #### [facility] CLIA [id number] [address] Bilirubin Ql (U) 1+ Abnormal Negative [facility] Comment on above: Order Comment: Speci men Type: URINE SPECIMEN Ordering Facility: [facility] Address: [address] [place] [address] Result Comment: Sugg est correlation with clinical findings and serum bilirubin if clinically indicated. Performed By: #### 2 4356-8 #### [facility] CLIA [id number] [address] Clarity (Unsp spec) Clear Normal Clear [facility] Comment on above: Order Comment: Speci men Type: URINE SPECIMEN Ordering Facility: [facility] Address: [address] [place] [address] Performed By: #### 2 4356-8 #### [facility] CLIA [id number] [address] Color (U) Yellow Normal Yellow [facility] Comment on above: Order Comment: Speci men Type: URINE SPECIMEN Ordering Facility: [facility] Address: [address] [place] [address] Performed By: #### 2 4356-8 #### [facility] CLIA [id number] [address] Epithelial cells LM.HPF (Urine sed) [#/Area] Moderate Normal [facility] Comment on above: Order Comment: Speci men Type: URINE SPECIMEN Ordering Facility: [facility] Address: [address] [place] [address] Performed By: #### 2 4356-8 #### [facility] CLIA [id number] [address] Glucose Test strip (U) [Mass/Vol] Negative Normal Negative [facility] Comment on above: Order Comment: Speci men Type: URINE SPECIMEN Ordering Facility: [facility] Address: [address] [place] [address] Performed By: #### 2 4356-8 #### [facility] CLIA [id number] [address] Hemoglobin Ql (U) Trace Abnormal Negative [facility] Comment on above: Order Comment: Speci men Type: URINE SPECIMEN Ordering Facility: [facility] Address: [address] [place] [address] Performed By: #### 2 4356-8 #### [facility] CLIA [id number] [address] OF [facility] Ketones Ql (U) 3+ Abnormal Negative [facility] Comment on above: Order Comment: Speci men Type: URINE SPECIMEN Ordering Facility: [facility] Address: [address] [place] [address] Performed By: #### 2 4356-8 #### [facility] CLIA [id number] [address] Leukocyte esterase Test strip Ql (U) Negative Normal Negative [facility] Comment on above: Order Comment: Speci men Type: URINE SPECIMEN Ordering Facility: [facility] Address: [address] [place] [address] Performed By: #### 2 4356-8 #### [facility] CLIA [id number] [address] [place] [address] [place] Nitrite Ql (U) Negative Normal Negative [facility] Comment on above: Order Comment: Speci men Type: URINE SPECIMEN Ordering Facility: [facility] Address: [address] [place] [address] Performed By: #### 2 4356-8 #### [facility] CLIA [id number] [address] [place] [address] [place] pH (U) 6.0 [pH] Normal 5.0-8.0 [facility] Comment on above: Order Comment: Speci men Type: URINE SPECIMEN Ordering Facility: [facility] Address: [address] [place] [address] Performed By: #### 2 4356-8 #### [facility] CLIA [id number] [address] OF [place] Protein (U) [Mass/Vol] Negative Normal Negative [facility] Comment on above: Order Comment: Speci men Type: URINE SPECIMEN Ordering Facility: [facility] Address: [address] [place] [address] Performed By: #### 2 4356-8 #### [facility] CLIA [id number] [address] STATES [facility] RBC LM.HPF (Urine sed) [#/Area] 0-3 /HPF Normal 0-3 /HPF [facility] Comment on above: Order Comment: Speci men Type: URINE SPECIMEN Ordering Facility: [facility] Address: [address] [place] [address] Performed By: #### 2 4356-8 #### [facility] CLIA [id number] [address] Specific gravity (U) [Rel density] 1.025 Normal 1.005-1.030 [facility] Comment on above: Order Comment: Speci men Type: URINE SPECIMEN Ordering Facility: [facility] Address: [address] [place] [address] Performed By: #### 2 4356-8 #### [facility] CLIA [id number] [address] Urobilinogen Ql (U) 0.2 EU/dL Normal 0.2-1.0 EU/dL [facility] Comment on above: Order Comment: Speci men Type: URINE SPECIMEN Ordering Facility: [facility] Address: [address] [place] [address] Performed By: #### 2 4356-8 #### [facility] CLIA [id number] [address] WBC LM.HPF (Urine sed) [#/Area] 0-5 /HPF Normal 0-5 /HPF [facility] Comment on above: Order Comment: Speci men Type: URINE SPECIMEN Ordering Facility: [facility] Address: [address] [place] [address] Performed By: #### 2 4356-8 #### [facility] CLIA [id number] [address] CBC W Auto Differential pane l (Bld)on 06-21-2023 Basophils (Bld) [#/Vol] 0.03 10*3/uL [facility] Basophils/100 WBC (Bld) 0.6 % 0.0 - 2.0 % [facility] Eosinophils (Bld) [#/Vol] 0.08 10*3/uL [facility] Eosinophils/100 WBC (Bld) 1.6 % 0.0 - 6.0 % [facility] Erythrocyte distribution width (RBC) [Ratio] 14.7 % High 11.5 - 14.5 % [facility] Hematocrit (Bld) [Volume fraction] 44.4 % 36.0 - 46.0 % [facility] Hemoglobin (Bld) [Mass/Vol] 14.5 g/dL 12.0 - 16.0 g/dL [facility] Immature granulocytes (Bld) [#/Vol] 0.01 10*3/uL [facility] Immature granulocytes/100 WBC (Bld) 0.2 % 0.0 - 0.9 % [facility] Comment on above: Immature Granulocyte Count (IG) includes promyelocytes, myelocytes and metamyelocytes but does not include bands. Percent differential counts (%) should be interpreted in the context of the absolute cell counts (cells/UL). Interpretation and review of laboratory results Abnormal [facility] Lymphocytes (Bld) [#/Vol] 1.85 10*3/uL [facility] Lymphocytes/100 WBC (Bld) 36.6 % 13.0 - 44.0 % [facility] MCH (RBC) [Entitic mass] 28.1 pg 26.0 - 34.[address] [facility] MCHC (RBC) [Mass/Vol] 32.7 g/dL 32.0 - 36.0 g/dL [facility] MCV (RBC) [Entitic vol] 86 fL 80 - [address] [facility] Monocytes (Bld) [#/Vol] 0.32 10*3/uL [facility] Monocytes/100 WBC (Bld) 6.3 % 2.0 - 10.0 % [facility] Neutrophils (Bld) [#/Vol] 2.77 10*3/uL [facility] Comment on above: Percent differential counts (%) should be interpreted in the context of the absolute cell counts (cells/uL). Neutrophils/100 WBC (Bld) 54.7 % 40.0 - 80.0 % [facility] Nucleated RBC/100 WBC (Bld) [Ratio] 0.0 % [facility] Platelets (Bld) [#/Vol] 199 10*3/uL [facility] RBC (Bld) [#/Vol] 5.16 10*6/uL [facility] WBC (Bld) [#/Vol] 5.1 10*3/uL [facility] Basophils (Bld) [#/Vol] 0.03 x10*3/uL Normal 0.00-0.10 [facility] Comment on above: Performed By: #### 5 8077-9 #### [facility] ([id number]) [facility] ([facility]) [address] [place] [address] 35138 Basophils/100 WBC (Bld) 0.6 % Normal 0.0-2.0 [facility] Comment on above: Performed By: #### 5 8077-9 #### [facility] ([id number]) [facility] ([facility]) [address] [place] [address] 21335 Eosinophils (Bld) [#/Vol] 0.08 x10*3/uL Normal 0.00-0.70 [facility] Comment on above: Performed By: #### 5 8077-9 #### [facility]IS[facility] ([id number]) [facility] ([facility]) [address] [place] [address] 73969 Eosinophils/100 WBC (Bld) 1.6 % Normal 0.0-6.0 [facility] Comment on above: Performed By: #### 5 8077-9 #### [facility]IS[facility] ([id number]) [facility] ([facility]) [address] [place] [address] 50231 Erythrocyte distribution width (RBC) [Ratio] 14.7 % High 11.5-14.5 [facility] Comment on above: Performed By: #### 5 8077-9 #### [facility] ([id number]) [facility] ([facility]) [address] [place] [address] 09916 Hematocrit (Bld) [Volume fraction] 44.4 % Normal 36.0-46.0 [facility] Comment on above: Performed By: #### 5 8077-9 #### [facility] ([id number]) [facility] ([facility]) [address] [place] [address] 07312 Hemoglobin (Bld) [Mass/Vol] 14.5 g/dL Normal 12.0-16.0 [facility] Comment on above: Performed By: #### 5 8077-9 #### [facility] ([id number]) [facility] ([facility]) [address] [place] [address] 60499 Immature granulocytes (Bld) [#/Vol] 0.01 x10*3/uL Normal 0.00-0.70 [facility] Comment on above: Performed By: #### 5 8077-9 #### [facility] ([id number]) [facility] ([facility]) [address] [place] [address] 59903 Immature granulocytes/100 WBC (Bld) 0.2 % Normal 0.0-0.9 [facility] Comment on above: Result Comment: Betty ture Granulocyte Count (IG) includes promyelocytes, myelocytes and metamyelocytes but does not include bands. Percent differential counts (%) should be interpreted in the context of the absolute cell counts (cells/UL). Performed By: #### 5 8077-9 #### [facility] ([id number]) [facility] ([facility]) [address] [place] [address] 35679 Lymphocytes (Bld) [#/Vol] 1.85 x10*3/uL Normal 1.20-4.80 [facility] Comment on above: Performed By: #### 5 8077-9 #### [facility] ([id number]) [facility] ([facility]) [address] [place] [address] 89338 Lymphocytes/100 WBC (Bld) 36.6 % Normal 13.0-44.0 [facility] Comment on above: Performed By: #### 5 8077-9 #### [facility] ([id number]) [facility] ([facility]) [address] [place] [address] 85436 MCH (RBC) [Entitic mass] 28.1 pg Normal 26.0-34.0 [facility] Comment on above: Performed By: #### 5 8077-9 #### [facility] ([id number]) [facility] ([facility]) [address] [place] [address] MCHC (RBC) [Mass/Vol] 32.7 g/dL Normal 32.0-36.0 [facility] Comment on above: Performed By: #### 5 8077-9 #### [facility] ([id number]) [facility] ([facility]) [address] [place] [address] MCV (RBC) [Entitic vol] 86 fL Normal 80-100 U [facility] Comment on above: Performed By: #### 5 8077-9 #### [facility] ([id number]) [facility] ([facility]) [address] [place] [address] Monocytes (Bld) [#/Vol] 0.32 x10*3/uL Normal 0.10-1.00 [facility] Comment on above: Performed By: #### 5 8077-9 #### [facility] ([id number]) [facility] ([facility]) [address] [place] [address] Monocytes/100 WBC (Bld) 6.3 % Normal 2.0-10.0 [facility] Comment on above: Performed By: #### 5 8077-9 #### [facility] ([id number]) [facility] ([facility]) [address] [place], [place] [phone] Neutrophils (Bld) [#/Vol] 2.77 x10*3/uL Normal 1.20-7.70 [facility] Comment on above: Result Comment: Perc ent differential counts (%) should be interpreted in the context of the absolute cell counts (cells/uL). Performed By: #### 5 8077-9 #### [facility] ([id number]) [facility] ([facility]) [address] [place] [address] 83255 Neutrophils/100 WBC (Bld) 54.7 % Normal 40.0-80.0 [facility] Comment on above: Performed By: #### 5 8077-9 #### [facility] ([id number]) [facility] ([facility]) [address] [place] [address] 54187 Nucleated RBC/100 WBC (Bld) [Ratio] 0.0 /100 WBCs Normal 0.0-0.0 [facility] Comment on above: Performed By: #### 5 8077-9 #### [facility] ([id number]) [facility] ([facility]) [address] [place] [address] 48199 Platelets (Bld) [#/Vol] 199 x10*3/uL Normal 150-450 [facility] Comment on above: Performed By: #### 5 8077-9 #### M[facility] ([id number]) [facility] ([facility]) [address] [place] [address] 17469 RBC (Bld) [#/Vol] 5.16 x10*6/uL Normal 4.00-5.20 [facility] Comment on above: Performed By: #### 5 8077-9 #### M[facility] ([id number]) [facility] ([facility]) [address] [place] [address] 46269 WBC (Bld) [#/Vol] 5.1 x10*3/uL Normal 4.4-11.3 [facility] Comment on above: Performed By: #### 5 8077-9 #### MELISSA [facility] ([id number]) [facility] ([facility]) [address] [place] [address] ANGIO CHEST FOR PULMONARY EMBOLISMon 06-21-2023 CT ANGIO CHEST FOR PULMONARY EMBOLISM Interpreted By: Rosa Chavarria, STUDY: CT ANGIO CHEST FOR PULMONARY EMBOLISM; 06/21/2023 9:16 am INDICATION: Signs/Symptoms:dyspn ea. History of laparoscopic cholecystectomy on 06/17/2023 with subsegmental pulmonary embolus demonstrated in right lower lobe on CT examination of abdomen and pelvis from 06/19/2023 COMPARISON: None.. ACCESSION NUMBER(S): [id number] ORDERING CLINICIAN: SATURNINO VELÁZQUEZ TECHNIQUE: CT angiography [...] Rosa Chavarria 06/21/2023 9:34 AM Dictation workstation: [id number] [facility] CT Chest W contrast IV and C [...] Rosa Chavarria 06/21/2023 9:34 AM Dictation workstation: [id number] ERNA Interpreted By: Rosa Chavarria, STUDY: CT ANGIO CHEST FOR PULMONARY EMBOLISM; 06/21/2023 9:16 am INDICATION: Signs/Symptoms:dyspn ea. History of laparoscopic cholecystectomy on 06/17/2023 with subsegmental pulmonary embolus demonstrated in right lower lobe on CT examination of abdomen and pelvis from 06/19/2023 COMPARISON: None.. ACCESSION NUMBER(S): [id number] ORDERING CLINICIAN: SATURNINO VELÁZQUEZ TECHNIQUE: CT angiography [...] There are surgical clips within gallbladder fossa. NERYODAL Rosa Chavarria MD - 06/21/2023 Interpreted By: Rosa Chavarria, STUDY: CT ANGIO CHEST FOR PULMONARY EMBOLISM; 06/21/2023 9:16 am INDICATION: Signs/Symptoms:dyspn ea. History of laparoscopic cholecystectomy on 06/17/2023 with subsegmental pulmonary embolus demonstrated in right lower lobe on CT examination of abdomen and pelvis from 06/19/2023 COMPARISON: None.. ACCESSION NUMBER(S): [id number] ORDERING CLINICIAN: SATURNINO VELÁZQUEZ TECHNIQUE: CT angiography [...] Rosa Chavarria 06/21/2023 9:34 AM Dictation workstation: [id number] [facility] Work Phone: Radiology Study observation (narrative) [facility] Work Phone: CT Chest W contrast IV and C T angiogram Pulmonary arteries for pulmonary embolus W contrast IVOrdered By: Rosa Chavarria on 06-21-[address] [facility] Work Phone: Comprehensive metabolic 2000 panelon 06-21-2023 Albumin BCP dye [Mass/Vol] 4.6 g/dL 3.4 - 5.0 g/dL [facility] ALP [Catalytic activity/Vol] 57 U/L 33 - 110 U/L [facility] ALT With P-5'-P [Catalytic activity/Vol] 36 U/L 7 - 45 U/L [facility] Comment on above: Patients treated wit h Sulfasalazine may generate falsely decreased results for ALT. Anion gap [Moles/Vol] 17 mmol/L 10 - 20 mmol/L [facility] AST With P-5'-P [Catalytic activity/Vol] 16 U/L 9 - 39 U/L [facility] Bilirubin [Mass/Vol] 0.8 mg/dL 0.0 - 1.2 mg/dL [facility] Calcium [Mass/Vol] 9.1 mg/dL 8.6 - 10. 3 mg/dL [facility] Chloride [Moles/Vol] 100 mmol/L 98 - 107 mmol/L [facility] CO2 [Moles/Vol] 20 mmol/L Low 21 - 32 mmol/L [facility] Creatinine [Mass/Vol] 0.81 mg/dL 0.50 - 1.05 mg/dL [facility] eGFR - PINF [facility] Comment on above: Calculations of nick mated GFR are performed using the 2020 CKD-EPI Study Refit equation without the race variable for the IDMS-Traceable creatinine methods. https://jasn.asnjournals.org/content//ASN.2020 967651 Glucose [Mass/Vol] 68 mg/dL Low 74 - 99 mg/dL [facility] Interpretation and review of laboratory results Abnormal [facility] Potassium [Moles/Vol] 3.6 mmol/L 3.5 - 5.3 mmol/L [facility] Protein [Mass/Vol] 6.6 g/dL 6.4 - 8.2 g/dL [facility] Sodium [Moles/Vol] 133 mmol/L Low 136 - 145 mmol/L [facility] Urea nitrogen [Mass/Vol] 10 mg/dL 6 - 23 mg/dL [facility] Albumin BCP dye [Mass/Vol] 4.6 g/dL Normal 3.4-5.0 [facility] Comment on above: Performed By: #### 5 8077-9 #### MELISSA WHITEHEAD ([id number]) [facility] ([facility]) [address] [place] [address] 02158 ALP [Catalytic activity/Vol] 57 U/L Normal 33-110 [facility] Comment on above: Performed By: #### 5 8077-9 #### MELISSA WHITEHEAD ([id number]) [facility] ([facility]) [address] [place] [address] 97787 ALT With P-5'-P [Catalytic activity/Vol] 36 U/L Normal 7-45 [facility] Comment on above: Result Comment: Gema ents treated with Sulfasalazine may generate falsely decreased results for ALT. Performed By: #### 5 8077-9 #### MELISSA WHITEHEAD ([id number]) [facility] ([facility]) [address] [place] [address] 87571 Anion gap [Moles/Vol] 17 mmol/L Normal 10-20 [facility] Comment on above: Performed By: #### 5 8077-9 #### MELISSA WHITEHEAD ([id number]) [facility] ([facility]) [address] [place] [address] 33832 AST With P-5'-P [Catalytic activity/Vol] 16 U/L Normal 9-39 [facility] Comment on above: Performed By: #### 5 8077-9 #### MELISSA WHITEHEAD ([id number]) [facility] ([facility]) [address] [place] [address] 65946 Bilirubin [Mass/Vol] 0.8 mg/dL Normal 0.0-1.2 [facility] Comment on above: Performed By: #### 5 8077-9 #### MELISSA WHITEHEAD ([id number]) [facility] ([facility]) [address] [place] [address] 54749 Calcium [Mass/Vol] 9.1 mg/dL Normal 8.6-10.3 [facility] Comment on above: Performed By: #### 5 8077-9 #### MELISSA WHITEHEAD ([id number]) [facility] ([facility]) [address] [place] [address] Chloride [Moles/Vol] 100 mmol/L Normal 98-107 [facility] Comment on above: Performed By: #### 5 8077-9 #### MELISSA WHITEHEAD ([id number]) [facility] ([facility]) [facility] [place] [address] CO2 [Moles/Vol] 20 mmol/L Low 21-32 [facility] Comment on above: Performed By: #### 5 8077-9 #### MELISSA WHITEHEAD ([id number]) [facility] ([facility]) [address] [place] [address] 43786 Creatinine [Mass/Vol] 0.81 mg/dL Normal 0.50-1.05 [facility] Comment on above: Performed By: #### 5 8077-9 #### MELISSA WHITEHEAD ([id number]) [facility] ([facility]) [address] [place] [address] 84442 GFR/1.73 sq M.predicted MDRD (S/P/Bld) [Vol rate/Area] mL/min/{1.73_m2} Normal >60 [facility] Comment on above: Result Comment: Calc ulations of estimated GFR are performed using the 2020 CKD-EPI Study Refit equation without the race variable for the IDMS-Traceable creatinine methods. https://jasn.asnjournals.org/content//ASN.2020 602313 Performed By: #### 5 8077-9 #### MELISSA WHITEHEAD ([id number]) [facility] ([facility]) [address] [place] [address] 27013 Glucose [Mass/Vol] 68 mg/dL Low 74-99 [facility] Comment on above: Performed By: #### 5 8077-9 #### MELISSA WHITEHEAD ([id number]) [facility] ([facility]) [facility] [place] [address] Potassium [Moles/Vol] 3.6 mmol/L Normal 3.5-5.3 [facility] Comment on above: Performed By: #### 5 8077-9 #### MELISSA WHITEHEAD ([id number]) [facility] ([facility]) [address] [place] [address] 84138 Protein [Mass/Vol] 6.6 g/dL Normal 6.4-8.2 [facility] Comment on above: Performed By: #### 5 8077-9 #### MELISSA WHITEHEAD ([id number]) [facility] ([facility]) [address] [place] [address] 11268 Sodium [Moles/Vol] 133 mmol/L Low 136-145 [facility] Comment on above: Performed By: #### 5 8077-9 #### MELISSA WHITEHEAD ([id number]) [facility] ([facility]) [address] [place] [address] 76236 Urea nitrogen [Mass/Vol] 10 mg/dL Normal 6-23 [facility] Comment on above: Performed By: #### 5 8077-9 #### MELISSA WHITEHEAD ([id number]) [facility] ([facility]) [address] [place] [address] 20044 ECG 12-LEADon 06-21-2023 ECG 12-LEAD Ventricular Rate 77 Atrial Rate 77 P-R Interval 120 QRS Duration 84 Q-T Interval 394 QTC Calculation(Bazett) 445 P [place] 76 R [place] 91 T [place] 32 QRS Count 13 Q Onset 223 [...] Mccormick ([id number]) on 07/02/2023 1:17:49 PM Normal [facility] Tropinin I.cardiac panel Hig h sensitivity methodon 06-21-2023 Interpretation and review of laboratory results Normal [facility] Less than 99th percentile of normal [...] at [facility] than at other [facility]. Direct result comparisons should only be made within the same method. [facility] Troponin I, High Sensitivity on 06-21-2023 Tropinin I.cardiac panel High sensitivity method ng/L 0 - 13 ng/L [facility] Troponin I.cardiac panelon 0 06-21-2023 Tropinin I.cardiac panel High sensitivity method <3 Normal 0-13 [facility] Comment on above: Order Comment: Less than [...] methodology [facility] Direct result comparisons should onlybe made within the same method. Performed By: #### 5 8077-9 #### TORRES VENTURA ([id number]) [facility] ([facility]) [address] [place] [address] Basic metabolic 2000 panelon 06-20-2023 Anion gap [Moles/Vol] 14 mmol/L 10 - 20 mmol/L [facility] Calcium [Mass/Vol] 8.6 mg/dL 8.6 - 10. 3 mg/dL [facility] Chloride [Moles/Vol] 101 mmol/L 98 - 107 mmol/L [facility] CO2 [Moles/Vol] 20 mmol/L Low 21 - 32 mmol/L [facility] Creatinine [Mass/Vol] 0.80 mg/dL 0.50 - 1.05 mg/dL [facility] eGFR - PINF [facility] Comment on above: Calculations of nick mated GFR are performed using the 2020 CKD-EPI Study Refit equation without the race variable for the IDMS-Traceable creatinine methods. https://jasn.asnjournals.org/content//ASN.2020 207393 Glucose [Mass/Vol] 98 mg/dL 74 - 99 mg/dL [facility] [place] Interpretation and review of laboratory results Abnormal [facility] Potassium [Moles/Vol] 3.7 mmol/L 3.5 - 5.3 mmol/L [facility] Sodium [Moles/Vol] 131 mmol/L Low 136 - 145 mmol/L [facility] Urea nitrogen [Mass/Vol] 7 mg/dL 6 - 23 mg/dL [facility] Anion gap [Moles/Vol] 14 mmol/L Normal 10-20 [facility] Comment on above: Performed By: #### 5 8077-9 #### MELISSA WHITEHEAD ([id number]) [facility] ([facility]) [address] [place] [address] 74404 Calcium [Mass/Vol] 8.6 mg/dL Normal 8.6-10.3 [facility] Comment on above: Performed By: #### 5 8077-9 #### MELISSA WHITEHEAD ([id number]) [facility] ([facility]) [address] [place] [address] 66938 Chloride [Moles/Vol] 101 mmol/L Normal 98-107 [facility] Comment on above: Performed By: #### 5 8077-9 #### MELISSA WHITEHEAD ([id number]) [facility] ([facility]) [address] [place] [address] CO2 [Moles/Vol] 20 mmol/L Low 21-32 [facility] Comment on above: Performed By: #### 5 8077-9 #### MELISSA WHITEHEAD ([id number]) [facility] ([facility]) [address] [place] [address] 50911 Creatinine [Mass/Vol] 0.80 mg/dL Normal 0.50-1.05 [facility] Comment on above: Performed By: #### 5 8077-9 #### MELISSA WHITEHEAD ([id number]) [facility] ([facility]) [address] [place] [address] 37548 GFR/1.73 sq M.predicted MDRD (S/P/Bld) [Vol rate/Area] mL/min/{1.73_m2} Normal >60 [facility] Comment on above: Result Comment: Calc ulations of estimated GFR are performed using the 2020 CKD-EPI Study Refit equation without the race variable for the IDMS-Traceable creatinine methods. https://jasn.asnjournals.org/content/early//ASN.2020 968191 Performed By: #### 5 8077-9 #### MELISSA WHITEHEAD ([id number]) [facility] ([facility]) [address] [place] [address] 28308 Glucose [Mass/Vol] 98 mg/dL Normal 74-99 [facility] Comment on above: Performed By: #### 5 8077-9 #### MELISSA WHITEHEAD ([id number]) [facility] ([facility]) [address] [place] [address] 36793 Potassium [Moles/Vol] 3.7 mmol/L Normal 3.5-5.3 [facility] Comment on above: Performed By: #### 5 8077-9 #### MELISSA WHITEHEAD ([id number]) [facility] ([facility]) [address] [place] [address] 30515 Sodium [Moles/Vol] 131 mmol/L Low 136-145 [facility] Comment on above: Performed By: #### 5 8077-9 #### MELISSA WHITEHEAD ([id number]) [facility] ([facility]) [facility] [place] [phone] Urea nitrogen [Mass/Vol] 7 mg/dL Normal 6-23 [facility] Comment on above: Performed By: #### 5 8077-9 #### MELISSA WHITEHEAD ([id number]) [facility] ([facility]) [address] [place], [place] [phone] CBC panel Auto (Bld)on 06-19 Erythrocyte distribution width (RBC) [Ratio] 14.4 % 11.5 - 14.5 % [facility] Hematocrit (Bld) [Volume fraction] 41.9 % 36.0 - 46.0 % [facility] Hemoglobin (Bld) [Mass/Vol] 13.9 g/dL 12.0 - 16.0 g/dL [facility] Interpretation and review of laboratory results Normal [facility] MCH (RBC) [Entitic mass] 28.6 pg 26.0 - 34.[address] [facility] MCHC (RBC) [Mass/Vol] 33.2 g/dL 32.0 - 36.0 g/dL [facility] MCV (RBC) [Entitic vol] 86 fL 80 - [address] [facility] Nucleated RBC/100 WBC (Bld) [Ratio] 0.0 % [facility] Platelets (Bld) [#/Vol] 235 10*3/uL [facility] RBC (Bld) [#/Vol] 4.86 10*6/uL [facility] WBC (Bld) [#/Vol] 6.5 10*3/uL [facility] Erythrocyte distribution width (RBC) [Ratio] 14.4 % Normal 11.5-14.5 [facility] Comment on above: Performed By: #### 5 8077-9 #### MELISSA WHITEHEAD ([id number]) [facility] ([facility]) [facility] [place] [phone] Hematocrit (Bld) [Volume fraction] 41.9 % Normal 36.0-46.0 [facility] Comment on above: Performed By: #### 5 8077-9 #### MELISSA WHITEHEAD ([id number]) [facility] ([facility]) [address] [place] [address] 63296 Hemoglobin (Bld) [Mass/Vol] 13.9 g/dL Normal 12.0-16.0 [facility] Comment on above: Performed By: #### 5 8077-9 #### MELISSA WHITEHEAD ([id number]) [facility] ([facility]) [address] [place] [address] MCH (RBC) [Entitic mass] 28.6 pg Normal 26.0-34.0 [facility] Comment on above: Performed By: #### 5 8077-9 #### MELISSA WHITEHEAD ([id number]) [facility] ([facility]) [address] [place] [address] 72986 MCHC (RBC) [Mass/Vol] 33.2 g/dL Normal 32.0-36.0 [facility] Comment on above: Performed By: #### 5 8077-9 #### MELISSA WHITEHEAD ([id number]) [facility] ([facility]) [address] [place], [place] [phone] MCV (RBC) [Entitic vol] 86 fL Normal 80-100 [facility] Comment on above: Performed By: #### 5 8077-9 #### MELISSA WHITEHEAD ([id number]) [facility] ([facility]) [address] [place] [address] 34780 Nucleated RBC/100 WBC (Bld) [Ratio] 0.0 /100 WBCs Normal 0.0-0.0 [facility] Comment on above: Performed By: #### 5 8077-9 #### MELISSA WHITEHEAD ([id number]) [facility] ([facility]) [address] [place] [address] 16929 Platelets (Bld) [#/Vol] 235 x10*3/uL Normal 150-450 [facility] Comment on above: Performed By: #### 5 8077-9 #### MELISSA WHITEHEAD ([id number]) [facility] ([facility]) [address] [place] [address] RBC (Bld) [#/Vol] 4.86 x10*6/uL Normal 4.00-5.20 [facility] Comment on above: Performed By: #### 5 8077-9 #### MELISSA WHITEHEAD ([id number]) [facility] ([facility]) [address] [place] [address] WBC (Bld) [#/Vol] 6.5 x10*3/uL Normal 4.4-11.3 [facility] Comment on above: Performed By: #### 5 8077-9 #### MELISSA CHARUNELL ([id number]) [facility] ([facility]) [address] [place] [address] 64630 Extra Urine Emerson Tubeon 05- Extra Tube Hold for add-ons. [facility] Comment on above: Auto resulted. [facility] HEPATOBILIARYon [place] HEPATOBILIARY Interpreted By: Jonathan Shannon, and Noemy Melara STUDY: PR HEPATOBILIARY; 06/20/2023 7:34 am INDICATION: Signs/Symptoms:rule out biliary leak. COMPARISON: None. ACCESSION NUMBER(S): [id number] ORDERING CLINICIAN: ALLA LLANES TECHNIQUE: DIVISION OF [...] as stated. This study was interpreted at [facility], [place], [place]. MACRO: None Signed by: Jonathan Shannon 06/20/2023 10:09 AM Dictation workstation: [id number] Normal [facility] NM Liver and Biliary ducts a nd Gallbladder Viewson 06-20-2023 Patient is status post cholecystectomy, without evidence of radiotracer extravasation to suggest bile leak. Enterogastric reflux is noted. I personally reviewed the images/study and I agree with the findings as stated. This study was interpreted at [facility], [place], [place]. MACRO: None Signed by: Jonathan Shannon 06/20/2023 10:09 AM Dictation workstation: [id number] MMODAL Interpreted By: Jonathan Shannon and Bartolomei Aguilar Christopher STUDY: [place] HEPATOBILIARY; 06/20/2023 7:34 am INDICATION: Signs/Symptoms:rule out biliary leak. COMPARISON: None. ACCESSION NUMBER(S): [id number] ORDERING CLINICIAN: ALLA LLANES TECHNIQUE: DIVISION OF [...] leak. Note is made of enterogastric reflux. MMODAL Jonathan Shannon MD - 06/20/2023 Interpreted By: Jonathan Shannon and Bartolomei Aguilar Christopher STUDY: NM HEPATOBILIARY; 06/20/2023 7:34 am INDICATION: Signs/Symptoms:rule out biliary leak. COMPARISON: None. ACCESSION NUMBER(S): [id number] ORDERING CLINICIAN: ALLA LLANES TECHNIQUE: DIVISION OF [...] as stated. This study was interpreted at [facility], [place], [place]. MACRO: None Signed by: Jonathan Shannon 06/20/2023 10:09 AM Dictation workstation: [id number] [facility] Work Phone: Radiology Study observation (narrative) [facility] Work Phone: NM Liver and Biliary ducts a nd Gallbladder ViewsOrdered By: Jonathan Shannon on 06-20-[address] [facility] Work Phone: Basic metabolic 2000 panelon 06-19-2023 Anion gap [Moles/Vol] 20 mmol/L 10 - 20 mmol/L [facility] Calcium [Mass/Vol] 9.1 mg/dL 8.6 - 10. 3 mg/dL [facility] Chloride [Moles/Vol] 98 mmol/L 98 - 107 mmol/L [facility] CO2 [Moles/Vol] 16 mmol/L Low 21 - 32 mmol/L [facility] Creatinine [Mass/Vol] 0.65 mg/dL 0.50 - 1.05 mg/dL [facility] eGFR - PINF [facility] Comment on above: Calculations of nick mated GFR are performed using the 2020 CKD-EPI Study Refit equation without the race variable for the IDMS-Traceable creatinine methods. https://jasn.asnjournals.org/content/early//ASN.2020 147680 Glucose [Mass/Vol] 74 mg/dL 74 - 99 mg/dL [facility] [place] Potassium [Moles/Vol] 4.4 mmol/L 3.5 - 5.3 mmol/L [facility] Sodium [Moles/Vol] 130 mmol/L Low 136 - 145 mmol/L [facility] Comment on above: Confirmed by repeat analysis Urea nitrogen [Mass/Vol] 7 mg/dL 6 - 23 mg/dL [facility] Anion gap [Moles/Vol] 20 mmol/L Normal 10-20 [facility] Comment on above: Performed By: #### 2 4321-2 #### MELISSA WHITEHEAD ([id number]) [facility] ([facility]) [address] [place] [address] Calcium [Mass/Vol] 9.1 mg/dL Normal 8.6-10.3 [facility] Comment on above: Performed By: #### 2 4321-2 #### MELISSA WHITEHEAD ([id number]) [facility] ([facility]) [address] [place] [address] 92079 Chloride [Moles/Vol] 98 mmol/L Normal 98-107 [facility] Comment on above: Performed By: #### 2 4321-2 #### MELISSA WHITEHEAD ([id number]) [facility] ([facility]) [address] [place] [address] CO2 [Moles/Vol] 16 mmol/L Low 21-32 [facility] Comment on above: Performed By: #### 2 4321-2 #### MELISSA WHITEHEAD ([id number]) [facility] ([facility]) [address] [place] [address] Creatinine [Mass/Vol] 0.65 mg/dL Normal 0.50-1.05 [facility] Comment on above: Performed By: #### 2 4321-2 #### MELISSA WHITEHEAD ([id number]) [facility] ([facility]) [facility] [place] [address] GFR/1.73 sq M.predicted MDRD (S/P/Bld) [Vol rate/Area] mL/min/{1.73_m2} Normal >60 [facility] Comment on above: Result Comment: Calc ulations of estimated GFR are performed using the 2020 CKD-EPI Study Refit equation without the race variable for the IDMS-Traceable creatinine methods. https://jasn.asnjournals.org/content/early//ASN.2020 985313 Performed By: #### 2 4321-2 #### MELISSA WHITEHEAD ([id number]) [facility] ([facility]) [address] [place] [address] Glucose [Mass/Vol] 74 mg/dL Normal 74-99 [facility] Comment on above: Performed By: #### 2 4321-2 #### MELISSA WHITEHEAD ([id number]) [facility] ([facility]) [address] [place], [place] [phone] Potassium [Moles/Vol] 4.4 mmol/L Normal 3.5-5.3 [facility] Comment on above: Performed By: #### 2 4321-2 #### MELISSA WHITEHEAD ([id number]) [facility] ([facility]) [address] [place] [address] Sodium [Moles/Vol] 130 mmol/L Low 136-145 [facility] Comment on above: Result Comment: Conf irmed by repeat analysis Performed By: #### 2 4321-2 #### MELISSA WHITEHEAD ([id number]) [facility] ([facility]) [address] [place] [address] Urea nitrogen [Mass/Vol] 7 mg/dL Normal 6-23 [facility] Comment on above: Performed By: #### 2 4321-2 #### MELISSA WHITEHEAD ([id number]) [facility] ([facility]) [address] [place] [address] CBC W Auto Differential pane l (Bld)on 06-19-2023 Basophils (Bld) [#/Vol] 0.01 10*3/uL [facility] Basophils/100 WBC (Bld) 0.2 % 0.0 - 2.0 % [facility] Eosinophils (Bld) [#/Vol] 0.01 10*3/uL [facility] Eosinophils/100 WBC (Bld) 0.2 % 0.0 - 6.0 % [facility] Erythrocyte distribution width (RBC) [Ratio] 14.1 % 11.5 - 14.5 % [facility] Hematocrit (Bld) [Volume fraction] 43.7 % 36.0 - 46.0 % [facility] Hemoglobin (Bld) [Mass/Vol] 14.2 g/dL 12.0 - 16.0 g/dL [facility] Immature granulocytes (Bld) [#/Vol] 0.01 10*3/uL [facility] Immature granulocytes/100 WBC (Bld) 0.2 % 0.0 - 0.9 % [facility] Comment on above: Immature Granulocyte Count (IG) includes promyelocytes, myelocytes and metamyelocytes but does not include bands. Percent differential counts (%) should be interpreted in the context of the absolute cell counts (cells/UL). Interpretation and review of laboratory results Abnormal [facility] Lymphocytes (Bld) [#/Vol] 0.64 10*3/uL Low [facility] Lymphocytes/100 WBC (Bld) 12.9 % 13.0 - 44.0 % [facility] MCH (RBC) [Entitic mass] 28.2 pg 26.0 - 34.[address] [facility] MCHC (RBC) [Mass/Vol] 32.5 g/dL 32.0 - 36.0 g/dL [facility] MCV (RBC) [Entitic vol] 87 fL 80 - [address] [facility] Monocytes (Bld) [#/Vol] 0.10 10*3/uL [facility] Monocytes/100 WBC (Bld) 2.0 % 2.0 - 10.0 % [facility] Neutrophils (Bld) [#/Vol] 4.20 10*3/uL [facility] Comment on above: Percent differential counts (%) should be interpreted in the context of the absolute cell counts (cells/uL). Neutrophils/100 WBC (Bld) 84.5 % 40.0 - 80.0 % [facility] Nucleated RBC/100 WBC (Bld) [Ratio] 0.0 % [facility] Platelets (Bld) [#/Vol] 225 10*3/uL [facility] RBC (Bld) [#/Vol] 5.03 10*6/[facility] WBC (Bld[facility] [#/Vol] 5.0 10*3/uL [facility] Basophils (Bld) [#/Vol] 0.01 x10*3/uL Normal 0.00-0.10 [facility] Comment on above: Performed By: #### 5 7021-8 #### MELISSA WHITEHEAD ([id number]) [facility] ([facility]) [address] [place] [address] 38761 Basophils/100 WBC (Bld) 0.2 % Normal 0.0-2.0 [facility] Comment on above: Performed By: #### 5 7021-8 #### MELISSA WHITEHEAD ([id number]) [facility] ([facility]) [address] [place] [address] 99888 Eosinophils (Bld) [#/Vol] 0.01 x10*3/uL Normal 0.00-0.70 [facility] Comment on above: Performed By: #### 5 7021-8 #### MELISSA WHITEHEAD ([id number]) [facility] ([facility]) [address] [place] [address] 98469 Eosinophils/100 WBC (Bld) 0.2 % Normal 0.0-6.0 [facility] Comment on above: Performed By: #### 5 7021-8 #### MELISSA WHITEHEAD ([id number]) [facility] ([facility]) [address] [place] [address] 03244 Erythrocyte distribution width (RBC) [Ratio] 14.1 % Normal 11.5-14.5 [facility] Comment on above: Performed By: #### 5 7021-8 #### MELISSA WHITEHEAD ([id number]) [facility] ([facility]) [address] [place] [address] 96284 Hematocrit (Bld) [Volume fraction] 43.7 % Normal 36.0-46.0 [facility] Comment on above: Performed By: #### 5 7021-8 #### MELISSA WHITEHEAD ([id number]) [facility] ([facility]) [address] [place] [address] 09136 Hemoglobin (Bld) [Mass/Vol] 14.2 g/dL Normal 12.0-16.0 [facility] Comment on above: Performed By: #### 5 7021-8 #### MELISSA WHITEHEAD ([id number]) [facility] ([facility]) [address] [place] [address] 89655 Immature granulocytes (Bld) [#/Vol] 0.01 x10*3/uL Normal 0.00-0.70 [facility] Comment on above: Performed By: #### 5 7021-8 #### MELISSA WHITEHEAD ([id number]) [facility] ([facility]) [address] [place] [address] 05061 Immature granulocytes/100 WBC (Bld) 0.2 % Normal 0.0-0.9 [facility] Comment on above: Result Comment: Betty ture Granulocyte Count (IG) includes promyelocytes, myelocytes and metamyelocytes but does not include bands. Percent differential counts (%) should be interpreted in the context of the absolute cell counts (cells/UL). Performed By: #### 5 7021-8 #### MELISSA WHITEHEAD ([id number]) [facility] ([facility]) [address] [place] [address] 93905 Lymphocytes (Bld) [#/Vol] 0.64 x10*3/uL Low 1.20-4.80 [facility] Comment on above: Performed By: #### 5 7021-8 #### MELISSA WHITEHEAD ([id number]) [facility] ([facility]) [address] [place] [address] 38956 Lymphocytes/100 WBC (Bld) 12.9 % Normal 13.0-44.0 [facility] Comment on above: Performed By: #### 5 7021-8 #### MELISSA WHITEHEAD ([id number]) [facility] ([facility]) [address] [place] [address] 75810 MCH (RBC) [Entitic mass] 28.2 pg Normal 26.0-34.0 [facility] Comment on above: Performed By: #### 5 7021-8 #### MELISSA WHITEHEAD ([id number]) [facility] ([facility]) [address] [place] [address] 92106 MCHC (RBC) [Mass/Vol] 32.5 g/dL Normal 32.0-36.0 [facility] Comment on above: Performed By: #### 5 7021-8 #### MELISSA WHITEHEAD ([id number]) [facility] ([facility]) [address] [place] [address] 20790 MCV (RBC) [Entitic vol] 87 fL Normal 80-100 U [facility] Comment on above: Performed By: #### 5 7021-8 #### MELISSA WHITEHEAD ([id number]) [facility] ([facility]) [address] [place] [address] 65993 Monocytes (Bld) [#/Vol] 0.10 x10*3/uL Normal 0.10-1.00 [facility] Comment on above: Performed By: #### 5 7021-8 #### MELISSA WHITEHEAD ([id number]) [facility] ([facility]) [address] [place] [address] 47703 Monocytes/100 WBC (Bld) 2.0 % Normal 2.0-10.0 [facility] Comment on above: Performed By: #### 5 7021-8 #### MELISSA WHITEHEAD ([id number]) [facility] ([facility]) [address] [place] [address] 85525 Neutrophils (Bld) [#/Vol] 4.20 x10*3/uL Normal 1.20-7.70 [facility] Comment on above: Result Comment: Perc ent differential counts (%) should be interpreted in the context of the absolute cell counts (cells/uL). Performed By: #### 5 7021-8 #### MELISSA WHITEHEAD ([id number]) [facility] ([facility]) [address] [place] [address] 99137 Neutrophils/100 WBC (Bld) 84.5 % Normal 40.0-80.0 [facility] Comment on above: Performed By: #### 5 7021-8 #### MELISSA WHITEHEAD ([id number]) [facility] ([facility]) [address] [place] [address] 91776 Nucleated RBC/100 WBC (Bld) [Ratio] 0.0 /100 WBCs Normal 0.0-0.0 [facility] Comment on above: Performed By: #### 5 7021-8 #### MELISSA WHITEHEAD ([id number]) [facility] ([facility]) [address] [place] [address] 49473 Platelets (Bld) [#/Vol] 225 x10*3/uL Normal 150-450 [facility] Comment on above: Performed By: #### 5 7021-8 #### MELISSA WHITEHEAD ([id number]) [facility] ([facility]) [address] [place] [address] 30270 RBC (Bld) [#/Vol] 5.03 x10*6/uL Normal 4.00-5.20 [facility] Comment on above: Performed By: #### 5 7021-8 #### MELISSA WHITEHEAD ([id number]) [facility] ([facility]) [address] [place] [address] 28152 WBC (Bld) [#/Vol] 5.0 x10*3/uL Normal 4.4-11.3 [facility] Comment on above: Performed By: #### 5 7021-8 #### MELISSA WHITEHEAD ([id number]) [facility] ([facility]) [address] [place] [address] CT ABDOMEN PELVIS W IV CONTR Cortney [...] AM -------- ORIGINAL REPORT -------- Dictation workstation: [id number] Interpreted By: Young Foss, STUDY: CT ABDOMEN PELVIS W IV CONTRAST; 06/19/2023 7:55 pm INDICATION: Signs/Symptoms:recen t cholecystectomy, nausea, vomiting, increased pain. Postoperative day to COMPARISON: None. ACCESSION NUMBER(S): [id number] ORDERING CLINICIAN: EUGENE CARCAMO TECHNIQUE: Contiguous axial [...] Young Foss 06/19/2023 8:23 PM Dictation workstation: [id number] [facility] CT Abdomen and Pelvis W cont rast [...] Young Foss 06/19/2023 8:23 PM Dictation workstation: [id number] MMODAL Interpreted By: Young Foss, STUDY: CT ABDOMEN PELVIS W IV CONTRAST; 06/19/2023 7:55 pm INDICATION: Signs/Symptoms:recen t cholecystectomy, nausea, vomiting, increased pain. Postoperative day to COMPARISON: None. ACCESSION NUMBER(S): [id number] ORDERING CLINICIAN: EUGENE CARCAMO TECHNIQUE: Contiguous axial [...] acute osseous abnormality. No suspicious osseous lesion. MMODAL Young Foss MD - 06/19/2023 Interpreted By: Young Foss, STUDY: CT ABDOMEN PELVIS W IV CONTRAST; 06/19/2023 7:55 pm INDICATION: Signs/Symptoms:recen t cholecystectomy, nausea, vomiting, increased pain. Postoperative day to COMPARISON: None. ACCESSION NUMBER(S): [id number] ORDERING CLINICIAN: EUGENE CARCAMO TECHNIQUE: Contiguous axial [...] Young Foss 06/19/2023 8:23 PM Dictation workstation: [id number] [facility] Work Phone: Radiology Study observation (narrative) [facility] Work Phone: [place] Abdomen and Pelvis W cont rast IVOrdered By: Young Foss on 06-19-[address] [facility] Work Phone: HCG ( test) IA.rapi d Ql (U)Ordered By: Carlos Alberto Oden on 06-19-2023 HCG ( test) Ql (U) Negative NEGATIVE [facility] Interpretation and review of laboratory results Normal [facility] HCG ( test) IA.rapi d Ql (U)on 06-19-2023 HCG ( test) Ql (U) Negative Normal NEGATIVE [facility] Comment on above: Performed By: #### 5 8077-9 #### TORRES VENTURA ([id number]) [facility] ([facility]) [address] [place] [address] Hepatic function 2000 panelo n 06-19-2023 Albumin BCP dye [Mass/Vol] 4.8 g/dL 3.4 - 5.0 g/dL [facility] ALP [Catalytic activity/Vol] 61 U/L 33 - 110 U/L [facility] ALT With P-5'-P [Catalytic activity/Vol] 56 U/L High 7 - 45 U/L [facility] Comment on above: Patients treated wit h Sulfasalazine may generate falsely decreased results for ALT. AST With P-5'-P [Catalytic activity/Vol] 26 U/L 9 - 39 U/L [facility] Bilirubin [Mass/Vol] 0.7 mg/dL 0.0 - 1.2 mg/dL [facility] Bilirubin.direct [Mass/Vol] 0.1 mg/dL 0.0 - 0.3 mg/dL [facility] Protein [Mass/Vol] 7.3 g/dL 6.4 - 8.2 g/dL [facility] Albumin BCP dye [Mass/Vol] 4.8 g/dL Normal 3.4-5.0 [facility] Comment on above: Performed By: #### 2 4325-3 #### MELISSA WHITEHEAD ([id number]) [facility] ([facility]) [address] [place] [address] 78503 ALP [Catalytic activity/Vol] 61 U/L Normal 33-110 [facility] Comment on above: Performed By: #### 2 5-3 #### MELISSA WHITEHEAD ([id number]) [facility] ([facility]) [address] [place] [address] 29348 ALT With P-5'-P [Catalytic activity/Vol] 56 U/L High 7-45 [facility] Comment on above: Result Comment: Gema ents treated with Sulfasalazine may generate falsely decreased results for ALT. Performed By: #### 2 5-3 #### MELISSA WHITEHEAD ([id number]) [facility] ([facility]) [address] [place] [address] 60534 AST With P-5'-P [Catalytic activity/Vol] 26 U/L Normal 9-39 [facility] Comment on above: Performed By: #### 2 4325-3 #### MELISSA WHITEHEAD ([id number]) [facility] ([facility]) [address] [place] [address] 05046 Bilirubin [Mass/Vol] 0.7 mg/dL Normal 0.0-1.2 [facility] Comment on above: Performed By: #### 2 4325-3 #### MELISSA WHITEHEAD ([id number]) [facility] ([facility]) [address] [place] [address] Bilirubin.direct [Mass/Vol] 0.1 mg/dL Normal 0.0-0.3 [facility] Comment on above: Performed By: #### 2 4325-3 #### MELISSA WHTIEHEAD ([id number]) [facility] ([facility]) [facility] [place] [address] Protein [Mass/Vol] 7.3 g/dL Normal 6.4-8.2 [facility] Comment on above: Performed By: #### 2 4325-3 #### MELISSA WHITEHEAD ([id number]) [facility] ([facility]) [address] [place] [address] Lactateon 06-19-2023 Lactate [Moles/Vol] 1.1 mmol/L 0.4 - 2. 0 mmol/L [facility] Lactate [Moles/Vol] 1.1 mmol/L Normal 0.4-2.0 [facility] Comment on above: Order Comment: Venip uncture immediately after or during the administration of Metamizole may lead to falsely low results. Testing should be performed immediately prior to Metamizole dosing. Performed By: #### 2 524-7 #### MELISSA WHITEHEAD ([id number]) [facility] ([facility]) [address] [place], [place] [id number] Lactate [Moles/Vol]on 2023 Interpretation and review of laboratory results Normal [facility] Venipuncture immediately after or during the administration of Metamizole may lead to falsely low results. Testing should be performed immediately prior to Metamizole dosing. [facility] Lipaseon 06-19-2023 Lipase [Catalytic activity/Vol] 30 U/L 9 - 82 U/L [facility] Lipase [Catalytic activity/V ol]on 06-19-2023 Interpretation and review of laboratory results Normal [facility] Venipuncture immediately after or during the administration of Metamizole may lead to falsely low results. Testing should be performed immediately prior to Metamizole dosing. [facility] No Panel Informationon 06-18 Interpretation and review of laboratory results Abnormal [facility] Triacylglycerol lipaseon Lipase [Catalytic activity/Vol] 30 U/L Normal 9-82 [facility] Comment on above: Order Comment: Venip uncture immediately after or during the administration of Metamizole may lead to falsely low results. Testing should be performed immediately prior to Metamizole dosing. Performed By: #### 3 040-3 #### TORRES VENTURA ([id number]) [facility] ([facility]) [address] [place] [address] Urinalysis complete W Reflex Culture panel (U)on 06-19-2023 Appearance (U) Clear Clear [facility] Bilirubin (U) [Mass/Vol] Negative NEGATIVE [facility] Color (U) Straw Straw, Yellow [facility] Glucose Auto test strip (U) [Mass/Vol] Negative NEGATIVE mg/dL [facility] Interpretation and review of laboratory results Abnormal [facility] Ketones (U) [Mass/Vol] 80 (2+) Abnormal NEGATIVE mg/d L [facility] Leukocyte esterase Auto test strip Ql (U) Negative NEGATIVE [facility] Mucus Auto (Urine sed) [#/Area] 1+ Reference range not established. /LPF [facility] Nitrite Auto test strip Ql (U) Negative NEGATIVE [facility] pH (U) 5.0 [pH] 5.0, 5.5, 6.0, 6.5, 7.0, 7.5, 8.[address] [facility] Protein (U) [Mass/Vol] 30 (1+) Abnormal NEGATIVE mg/d L [facility] RBC (U) [#/Vol] MODERATE (2+) Abnormal NEGATIVE [facility] RBC Auto (Urine sed) [#/Area] 1-2 NONE, 1-2, 3-5 /HPF [facility] Specific gravity (U) [Rel density] 1.017 1.005 - 1.[address] [facility] Urobilinogen (U) [Mass/Vol] mg/dL NINF - 2.0 mg/dL [facility] WBC Auto (Urine sed) [#/Area] 1-5 1-5, NONE /HPF [facility] Appearance (U) Clear Normal Clear [facility] Comment on above: Performed By: #### 5 8077-9 #### MELISSA WHITEHEAD ([id number]) [facility] ([facility]) [address] [place] [address] 03205 Bilirubin (U) [Mass/Vol] Negative Normal NEGATIVE [facility] Comment on above: Performed By: #### 5 8077-9 #### MELISSA WHITEHEAD ([id number]) [facility] ([facility]) [address] [place] [address] 39740 Color (U) Straw Normal Straw, Yellow [facility] Comment on above: Performed By: #### 5 8077-9 #### MELISSA WHITEHEAD ([id number]) [facility] ([facility]) [address] [place] [address] 55675 Glucose Auto test strip (U) [Mass/Vol] Negative Normal NEGATIVE [facility] Comment on above: Performed By: #### 5 8077-9 #### MELISSA WHITEHEAD ([id number]) [facility] ([facility]) [address] [place] [address] 09293 Ketones (U) [Mass/Vol] 80 (2+) Abnormal NEGATIVE [facility] on above: Performed By: #### 5 8077-9 #### MELISSA WHITEHEAD ([id number]) [facility] ([facility]) [address] [place] [address] 17268 Leukocyte esterase Auto test strip Ql (U) Negative Normal NEGATIVE [facility] Comment on above: Performed By: #### 5 8077-9 #### MELISSA WHITEHEAD ([id number]) [facility] ([facility]) [address] [place] [address] 50612 Mucus Auto (Urine sed) [#/Area] 1+ /LPF Normal Reference range not established. [facility] Comment on above: Performed By: #### 5 8077-9 #### MELISSA WHITEHEAD ([id number]) [facility] ([facility]) [address] [place] [address] 18224 Nitrite Auto test strip Ql (U) Negative Normal NEGATIVE [facility] Comment on above: Performed By: #### 5 8077-9 #### MELISSA WHITEHEAD ([id number]) [facility] ([facility]) [address] [place] [address] pH (U) 5.0 [pH] Normal 5.0, 5.5, 6.0, 6.5, 7.0, 7.5, 8.0 [facility] Comment on above: Performed By: #### 5 8077-9 #### MELISSA WHITEHEAD ([id number]) [facility] ([facility]) [address] [place] [address] Protein (U) [Mass/Vol] 30 (1+) Normal NEGATIVE [facility] Comment on above: Performed By: #### 5 8077-9 #### MELISSA WHIETHEAD ([id number]) [facility] ([facility]) [address] [place] [address] RBC (U) [#/Vol] MODERATE (2+) Abnormal NEGATIVE [facility] Comment on above: Performed By: #### 5 8077-9 #### MELISSA WHITEHEAD ([id number]) [facility] ([facility]) [address] [place] [address] RBC Auto (Urine sed) [#/Area] 1-2 Normal NONE, 1-2, 3-5 [facility] Comment on above: Performed By: #### 5 8077-9 #### MELISSA WHITEHEAD ([id number]) [facility] ([facility]) [address] [place], [place] [phone] Specific gravity (U) [Rel density] 1.017 Normal 1.005-1.035 [facility] Comment on above: Performed By: #### 5 8077-9 #### MELISSA WHITEHEAD ([id number]) [facility] ([facility]) [address] [place] [address] Urobilinogen (U) [Mass/Vol] mg/dL Normal <2.0 [facility] Comment on above: Performed By: #### 5 8077-9 #### MELISSA WHITEHEAD ([id number]) [facility] ([facility]) [address] [place] [address] WBC Auto (Urine sed) [#/Area] 1-5 Normal 1-5, NONE [facility] Comment on above: Performed By: #### 5 8077-9 #### TORRES VENTURA ([id number]) [facility] ([facility]) [facility] [place] [address] CBC W Auto Differential pane l (Bld)on 06-18-2023 Basophils (Bld) [#/Vol] 0.03 10*3/uL [facility] Basophils/100 WBC (Bld) 0.5 % 0.0 - 2.0 % [facility] Eosinophils (Bld) [#/Vol] 0.05 10*3/uL [facility] Eosinophils/100 WBC (Bld) 0.9 % 0.0 - 6.0 % [facility] Erythrocyte distribution width (RBC) [Ratio] 14.7 % High 11.5 - 14.5 % [facility] Hematocrit (Bld) [Volume fraction] 40.2 % 36.0 - 46.0 % [facility] Hemoglobin (Bld) [Mass/Vol] 12.7 g/dL 12.0 - 16.0 g/dL [facility] Immature granulocytes (Bld) [#/Vol] 0.01 10*3/uL [facility] Immature granulocytes/100 WBC (Bld) 0.2 % 0.0 - 0.9 % [facility] Comment on above: Immature Granulocyte Count (IG) includes promyelocytes, myelocytes and metamyelocytes but does not include bands. Percent differential counts (%) should be interpreted in the context of the absolute cell counts (cells/UL). Interpretation and review of laboratory results Abnormal [facility] Lymphocytes (Bld) [#/Vol] 3.08 10*3/uL [facility] Lymphocytes/100 WBC (Bld) 56.4 % 13.0 - 44.0 % [facility] MCH (RBC) [Entitic mass] 28.0 pg 26.0 - 34.[address] [facility] MCHC (RBC) [Mass/Vol] 31.6 g/dL Low 32.0 - 36.0 g/dL [facility] MCV (RBC) [Entitic vol] 89 fL 80 - [address] [facility] Monocytes (Bld) [#/Vol] 0.38 10*3/uL [facility] Monocytes/100 WBC (Bld) 7.0 % 2.0 - 10.0 % [facility] Neutrophils (Bld) [#/Vol] 1.91 10*3/uL [facility] Comment on above: Percent differential counts (%) should be interpreted in the context of the absolute cell counts (cells/uL). Neutrophils/100 WBC (Bld) 35.0 % 40.0 - 80.0 % [facility] Nucleated RBC/100 WBC (Bld) [Ratio] 0.0 % [facility] Platelets (Bld) [#/Vol] 208 10*3/uL [facility] RBC (Bld) [#/Vol] 4.54 10*6/uL [facility] WBC (Bld) [#/Vol] 5.5 10*3/uL [facility] Basophils (Bld) [#/Vol] 0.03 x10*3/uL Normal 0.00-0.10 [facility] Comment on above: Performed By: #### 5 7021-8 #### MELISSA WHITEHEAD ([id number]) [facility] ([facility]) [address] [place] [address] 08149 Basophils/100 WBC (Bld) 0.5 % Normal 0.0-2.0 U [facility] Comment on above: Performed By: #### 5 7021-8 #### MELISSA WHITEHEAD ([id number]) [facility] ([facility]) [address] [place] [address] 27311 Eosinophils (Bld) [#/Vol] 0.05 x10*3/uL Normal 0.00-0.70 [facility] Comment on above: Performed By: #### 5 7021-8 #### MELISSA WHITEHEAD ([id number]) [facility] ([facility]) [address] [place] [address] 80181 Eosinophils/100 WBC (Bld) 0.9 % Normal 0.0-6.0 [facility] Comment on above: Performed By: #### 5 7021-8 #### MELISSA WHITEHEAD ([id number]) [facility] ([facility]) [address] [place] [address] 29228 Erythrocyte distribution width (RBC) [Ratio] 14.7 % High 11.5-14.5 [facility] Comment on above: Performed By: #### 5 7021-8 #### MELISSA WHITEHEAD ([id number]) [facility] ([facility]) [address] [place] [address] 17775 Hematocrit (Bld) [Volume fraction] 40.2 % Normal 36.0-46.0 [facility] Comment on above: Performed By: #### 5 7021-8 #### MELISSA WHITEHEAD ([id number]) [facility] ([facility]) [address] [place] [address] 41547 Hemoglobin (Bld) [Mass/Vol] 12.7 g/dL Normal 12.0-16.0 [facility] Comment on above: Performed By: #### 5 7021-8 #### MELISSA WHITEHEAD ([id number]) [facility] ([facility]) [address] [place] [address] 68567 Immature granulocytes (Bld) [#/Vol] 0.01 x10*3/uL Normal 0.00-0.70 [facility] Comment on above: Performed By: #### 5 7021-8 #### MELISSA WHITEHEAD ([id number]) [facility] ([facility]) [address] [place] [address] 57889 Immature granulocytes/100 WBC (Bld) 0.2 % Normal 0.0-0.9 [facility] Comment on above: Result Comment: Betty ture Granulocyte Count (IG) includes promyelocytes, myelocytes and metamyelocytes but does not include bands. Percent differential counts (%) should be interpreted in the context of the absolute cell counts (cells/UL). Performed By: #### 5 7021-8 #### MELISSA WHITEHEAD ([id number]) [facility] ([facility]) [address] [place] [address] 81829 Lymphocytes (Bld) [#/Vol] 3.08 x10*3/uL Normal 1.20-4.80 [facility] Comment on above: Performed By: #### 5 7021-8 #### MELISSA WHITEHEAD ([id number]) [facility] ([facility]) [address] [place] [address] 39682 Lymphocytes/100 WBC (Bld) 56.4 % Normal 13.0-44.0 [facility] Comment on above: Performed By: #### 5 7021-8 #### MELISSA WHITEHEAD ([id number]) [facility] ([facility]) [address] [place] [address] 09089 MCH (RBC) [Entitic mass] 28.0 pg Normal 26.0-34.0 [facility] Comment on above: Performed By: #### 5 7021-8 #### MELISSA WHITEHEAD ([id number]) [facility] ([facility]) [address] [place] [address] 54565 MCHC (RBC) [Mass/Vol] 31.6 g/dL Low 32.0-36.0 [facility] Comment on above: Performed By: #### 5 7021-8 #### MELISSA WHITEHEAD ([id number]) [facility] ([facility]) [address] [place] [address] 83880 MCV (RBC) [Entitic vol] 89 fL Normal 80-100 U [facility] Comment on above: Performed By: #### 5 7021-8 #### MELISSA WHITEHEAD ([id number]) [facility] ([facility]) [address] [place] [address] 03963 Monocytes (Bld) [#/Vol] 0.38 x10*3/uL Normal 0.10-1.00 [facility] Comment on above: Performed By: #### 5 7021-8 #### MELISSA WHITEHEAD ([id number]) [facility] ([facility]) [address] [place] [address] 62982 Monocytes/100 WBC (Bld) 7.0 % Normal 2.0-10.0 U [facility] Comment on above: Performed By: #### 5 7021-8 #### MELISSA WHITEHEAD ([id number]) [facility] ([facility]) [address] [place] [address] 37528 Neutrophils (Bld) [#/Vol] 1.91 x10*3/uL Normal 1.20-7.70 [facility] Comment on above: Result Comment: Perc ent differential counts (%) should be interpreted in the context of the absolute cell counts (cells/uL). Performed By: #### 5 7021-8 #### MELISSA WHITEHEAD ([id number]) [facility] ([facility]) [address] [place] [address] 38520 Neutrophils/100 WBC (Bld) 35.0 % Normal 40.0-80.0 [facility] Comment on above: Performed By: #### 5 7021-8 #### MELISSA WHITEHEAD ([id number]) [facility] ([facility]) [address] [place] [address] 39418 Nucleated RBC/100 WBC (Bld) [Ratio] 0.0 /100 WBCs Normal 0.0-0.0 [facility] Comment on above: Performed By: #### 5 7021-8 #### MELISSA WHITEHEAD ([id number]) [facility] ([facility]) [address] [place] [address] 75181 Platelets (Bld) [#/Vol] 208 x10*3/uL Normal 150-450 [facility] Comment on above: Performed By: #### 5 7021-8 #### MELISSA WHITEHEAD ([id number]) [facility] ([facility]) [address] [place] [address] 53920 RBC (Bld) [#/Vol] 4.54 x10*6/uL Normal 4.00-5.20 [facility] Comment on above: Performed By: #### 5 7021-8 #### MELISSA WHITEHEAD ([id number]) [facility] ([facility]) [address] [place] [address] 24011 WBC (Bld) [#/Vol] 5.5 x10*3/uL Normal 4.4-11.3 [facility] Comment on above: Performed By: #### 5 7021-8 #### TORRES VENTURA ([id number]) [facility] ([facility]) [address] [place] [address] Comprehensive metabolic 2000 panelon 06-18-2023 Albumin BCP dye [Mass/Vol] 4.1 g/dL 3.4 - 5.0 g/dL [facility] ALP [Catalytic activity/Vol] 54 U/L 33 - 110 U/L [facility] ALT With P-5'-P [Catalytic activity/Vol] 58 U/L High 7 - 45 U/L [facility] Comment on above: Patients treated wit h Sulfasalazine may generate falsely decreased results for ALT. Anion gap [Moles/Vol] 10 mmol/L 10 - 20 mmol/L [facility] AST With P-5'-P [Catalytic activity/Vol] 27 U/L 9 - 39 U/L [facility] Bilirubin [Mass/Vol] 0.7 mg/dL 0.0 - 1.2 mg/dL [facility] Calcium [Mass/Vol] 8.4 mg/dL Low 8.6 - 10. 3 mg/dL [facility] Chloride [Moles/Vol] 103 mmol/L 98 - 107 mmol/L [facility] CO2 [Moles/Vol] 26 mmol/L 21 - 32 mmol/L [facility] Creatinine [Mass/Vol] 0.83 mg/dL 0.50 - 1.05 mg/dL [facility] eGFR - PINF [facility] Comment on above: Calculations of nick mated GFR are performed using the 2020 CKD-EPI Study Refit equation without the race variable for the IDMS-Traceable creatinine methods. https://jasn.asnjournals.org/content/early/ASN.2020 403891 Glucose [Mass/Vol] 81 mg/dL 74 - 99 mg/dL [facility] Interpretation and review of laboratory results Abnormal [facility] Potassium [Moles/Vol] 3.4 mmol/L Low 3.5 - 5.3 mmol/L [facility] Protein [Mass/Vol] 6.1 g/dL Low 6.4 - 8.2 g/dL Un [facility] Sodium [Moles/Vol] 136 mmol/L 136 - 145 mmol/L [facility] Urea nitrogen [Mass/Vol] 5 mg/dL Low 6 - 23 mg/dL [facility] Albumin BCP dye [Mass/Vol] 4.1 g/dL Normal 3.4-5.0 [facility] Comment on above: Performed By: #### 2 4323-8 #### MELISSA WHITEHEAD ([id number]) [facility] ([facility]) [address] [place] [address] 88912 ALP [Catalytic activity/Vol] 54 U/L Normal 33-110 [facility] Comment on above: Performed By: #### 2 4323-8 #### MELISSA WHITEHEAD ([id number]) [facility] ([facility]) [address] [place] [address] 82730 ALT With P-5'-P [Catalytic activity/Vol] 58 U/L High 7-45 [facility] Comment on above: Result Comment: Gema ents treated with Sulfasalazine may generate falsely decreased results for ALT. Performed By: #### 2 4323-8 #### MELISSA WHITEHEAD ([id number]) [facility] ([facility]) [facility] [place] [address] Anion gap [Moles/Vol] 10 mmol/L Normal 10-20 [facility] Comment on above: Performed By: #### 2 4323-8 #### MELISSA WHITEHEAD ([id number]) [facility] ([facility]) [facility] [place] [address] AST With P-5'-P [Catalytic activity/Vol] 27 U/L Normal 9-39 [facility] Comment on above: Performed By: #### 2 4323-8 #### MELISSA WHITEHEAD ([id number]) [facility] ([facility]) [facility] [place] [address] Bilirubin [Mass/Vol] 0.7 mg/dL Normal 0.0-1.2 [facility] Comment on above: Performed By: #### 2 4323-8 #### MELISSA WHITEHEAD ([id number]) [facility] ([facility]) [facility] [place] [address] Calcium [Mass/Vol] 8.4 mg/dL Low 8.6-10.3 [facility] Comment on above: Performed By: #### 2 4323-8 #### MELISSA WHITEHEAD ([id number]) [facility] ([facility]) [address] [place] [address] 39942 Chloride [Moles/Vol] 103 mmol/L Normal 98-107 [facility] Comment on above: Performed By: #### 2 4323-8 #### MELISSA WHITEHEAD ([id number]) [facility] ([facility]) [address] [place] [address] 76733 CO2 [Moles/Vol] 26 mmol/L Normal 21-32 [facility] Comment on above: Performed By: #### 2 4323-8 #### MELISSA WHITEHEAD ([id number]) [facility] ([facility]) [facility] [place] [address] Creatinine [Mass/Vol] 0.83 mg/dL Normal 0.50-1.05 [facility] Comment on above: Performed By: #### 2 4323-8 #### MELISSA WHITEHEAD ([id number]) [facility] ([facility]) [address] [place] [address] 38862 GFR/1.73 sq M.predicted MDRD (S/P/Bld) [Vol rate/Area] mL/min/{1.73_m2} Normal >60 [facility] Comment on above: Result Comment: Calc ulations of estimated GFR are performed using the 2020 CKD-EPI Study Refit equation without the race variable for the IDMS-Traceable creatinine methods. https://jasn.asnjournals.org/content/early/ASN.2020 273263 Performed By: #### 2 4323-8 #### MELISSA WHITEHEAD ([id number]) [facility] ([facility]) [address] [place] [address] Glucose [Mass/Vol] 81 mg/dL Normal 74-99 [facility] Comment on above: Performed By: #### 2 4323-8 #### MELISSA WHITEHEAD ([id number]) [facility] ([facility]) [address] [place] [address] Potassium [Moles/Vol] 3.4 mmol/L Low 3.5-5.3 [facility] Comment on above: Performed By: #### 2 4323-8 #### MELISSA WHITEHEAD ([id number]) [facility] ([facility]) [address] [place] [address] Protein [Mass/Vol] 6.1 g/dL Low 6.4-8.2 [facility] Comment on above: Performed By: #### 2 4323-8 #### MELISSA WHITEHEAD ([id number]) [facility] ([facility]) [address] [place] [address] Sodium [Moles/Vol] 136 mmol/L Normal 136-145 [facility] Comment on above: Performed By: #### 2 4323-8 #### MELISSA WHITEHEAD ([id number]) [facility] ([facility]) [address] [place] [address] 13213 Urea nitrogen [Mass/Vol] 5 mg/dL Low 6-23 [facility] Comment on above: Performed By: #### 2 4323-8 #### MELISSA WHITEHEAD ([id number]) [facility] ([facility]) [address] [place] [address] Lipaseon 06-18-2023 Lipase [Catalytic activity/Vol] 36 U/L 9 - 82 U/L [facility] Lipase [Catalytic activity/V ol]on 06-18-2023 Interpretation and review of laboratory results Normal [facility] Venipuncture immediately after or during the administration of Metamizole may lead to falsely low results. Testing should be performed immediately prior to Metamizole dosing. [facility] No Panel Informationon 06-[address] [facility] Triacylglycerol lipaseon Lipase [Catalytic activity/Vol] 36 U/L Normal 9-82 [facility] Comment on above: Order Comment: Venip uncture immediately after or during the administration of Metamizole may lead to falsely low results. Testing should be performed immediately prior to Metamizole dosing. Performed By: #### 3 040-3 #### MELISSA WHITEHEAD ([id number]) [facility] ([facility]) [address] [place] [address] Urinalysis complete W Reflex Culture panel (U)on 06-18-2023 Appearance (U) Hazy Abnormal Clear [facility] Bilirubin (U) [Mass/Vol] Negative NEGATIVE [facility] Color (U) Yellow Straw, Yellow [facility] Glucose Auto test strip (U) [Mass/Vol] Negative NEGATIVE mg/dL [facility] Interpretation and review of laboratory results Abnormal [facility] Ketones (U) [Mass/Vol] 80 (2+) Abnormal NEGATIVE mg/d L [facility] Leukocyte esterase Auto test strip Ql (U) Negative NEGATIVE [facility] Nitrite Auto test strip Ql (U) Negative NEGATIVE [facility] pH (U) 6.0 [pH] 5.0, 5.5, 6.0, 6.5, 7.0, 7.5, 8.[address] [facility] Protein (U) [Mass/Vol] Negative NEGATIVE mg/d L [facility] RBC (U) [#/Vol] Negative NEGATIVE [facility] Specific gravity (U) [Rel density] 1.019 1.005 - 1.[address] [facility] Urobilinogen (U) [Mass/Vol] mg/dL NINF - 2.0 mg/dL [facility] Appearance (U) Hazy Normal Clear [facility] Comment on above: Performed By: #### 5 8077-9 #### MELISSA WHITEHEAD ([id number]) [facility] ([facility]) [facility] [place] [address] Bilirubin (U) [Mass/Vol] Negative Normal NEGATIVE [facility] Comment on above: Performed By: #### 5 8077-9 #### MELISSA WHITEHEAD ([id number]) [facility] ([facility]) [address] [place] [address] Color (U) Yellow Normal Straw, Yellow [facility] Comment on above: Performed By: #### 5 8077-9 #### MELISSA WHITEHEAD ([id number]) [facility] ([facility]) [address] [place] [address] Glucose Auto test strip (U) [Mass/Vol] Negative Normal NEGATIVE [facility] Comment on above: Performed By: #### 5 8077-9 #### MELISSA WHITEHEAD ([id number]) [facility] ([facility]) [address] [place] [address] Ketones (U) [Mass/Vol] 80 (2+) Abnormal NEGATIVE [facility] Comment on above: Performed By: #### 5 8077-9 #### MELISSA WHITEHEAD ([id number]) [facility] ([facility]) [address] [place], [place] [id number] Leukocyte esterase Auto test strip Ql (U) Negative Normal NEGATIVE [facility] Comment on above: Performed By: #### 5 8077-9 #### MELISSA WHITEHEAD ([id number]) [facility] ([facility]) [address] [place], [place] [phone] Nitrite Auto test strip Ql (U) Negative Normal NEGATIVE [facility] Comment on above: Performed By: #### 5 8077-9 #### MELISSA WHITEHEAD ([id number]) [facility] ([facility]) [address] [place], [place] [phone] pH (U) 6.0 [pH] Normal 5.0, 5.5, 6.0, 6.5, 7.0, 7.5, 8.0 [facility] Comment on above: Performed By: #### 5 8077-9 #### MELISSA WHITEHEAD ([id number]) [facility] ([facility]) [address] [place], [place] [phone] Protein (U) [Mass/Vol] Negative Normal NEGATIVE [facility] Comment on above: Performed By: #### 5 8077-9 #### MELISSA WHITEHEAD ([id number]) [facility] ([facility]) [address] [place] [address] RBC (U) [#/Vol] Negative Normal NEGATIVE [facility] Comment on above: Performed By: #### 5 8077-9 #### MELISSA WHITEHEAD ([id number]) [facility] ([facility]) [address] [place] [address] Specific gravity (U) [Rel density] 1.019 Normal 1.005-1.035 [facility] Comment on above: Performed By: #### 5 8077-9 #### MELISSA WHITEHEAD ([id number]) [facility] ([facility]) [address] [place] [address] Urobilinogen (U) [Mass/Vol] mg/dL Normal <2.0 [facility] Comment on above: Performed By: #### 5 8077-9 #### MELISSA WHITEHEAD ([id number]) [facility] ([facility]) [address] [place] [address] Surgical pathology studyon 0 06-17-2023 Surgical pathology study Pathology report.total SEE COMMENT Surgical Pathology Case: [id number] Authorizing Provider: Alla Llanes MD Collected: 06/17/2023 0958 Ordering Location: [facility] Received: 06/17/2023 1600 Center OR Pathologist: [...] node measuring 1.0 cm in greatest dimension. [employer] sections consisting of the cystic duct margin, and gallbladder wall, and lymph node are submitted in one cassette. [facility] Comment on above: Order Comment: Pre-o p diagnosis:Symptomatic cholelithiasis [K80.20] URINE OB DIP B/Oon 3 Glucose Ql (U) Negative Neg mg/dL [facility] Protein.monoclonal (U) [Mass/Vol] Negative Neg mg/dL [facility] URINE OB DIP B/Oon 3 Glucose Ql (U) Negative Neg mg/dL [facility] Protein.monoclonal (U) [Mass/Vol] Negative Neg mg/dL [facility] URINE OB DIP B/Oon 3 Glucose Ql (U) Negative Neg mg/dL [facility] Protein.monoclonal (U) [Mass/Vol] Negative Neg mg/dL [facility] Absolute lymphocyte countOrd ered By: Neelima Dahl on 09-24-2022 Lymphocytes Auto (Unsp spec) [#/Vol] 1.26 10*3/uL 0.83-4.51 [facility] Automated blood hematocrit ( percentage)Ordered By: Neelima Dahl on 09-24-2022 Hematocrit (Bld) [Volume fraction] 30.4 % 37-47 [facility] Basophil percentageOrdered B y: Neelima Dahl on 09-24-2022 Basophils/100 WBC (Bld) 0.4 % 0-1 [facility] Eosinophils/100 WBC (Bld) 1.1 % 0-5 [facility] Neutrophils (Bld) [#/Vol] 3.7 10*3/uL 2.0-7.7 [facility] Neutrophils/100 WBC (Bld) 65.8 % 47-70 [facility] WBC (Bld) [#/Vol] 5.6 10*3/uL 4.4-11.0 [facility] Blood erythrocytes count (nu mber/volume)Ordered By: Neelima Dahl on 09-24-2022 RBC (Bld) [#/Vol] 3.21 10*6/uL 4.2-5.4 [facility] Blood hemoglobin measurement (mass/volume)Ordered By: Neelima Dahl on 09-24-2022 Hemoglobin (Bld) [Mass/Vol] 9.6 g/dL 12.0-15.0 [facility] Blood lymphocytes/100 leukoc ytesOrdered By: Neelima Dahl on 09-24-2022 Lymphocytes/100 WBC (Bld) 22.6 % 19-41 [facility] Blood monocytes/100 leukocyt esOrdered By: Neelima Dahl on 09-24-2022 Monocytes/100 WBC (Bld) 9.9 % 0-10 [facility] Blood platelet mean volumeOr dered By: Neelima Dahl on 09-24-2022 Platelet mean volume (Bld) [Entitic vol] 12.7 fL 6.2-12.0 [facility] Determination of erythrocyte mean corpuscular volume (MCV)Ordered By: Neelima Dahl on 09-24-2022 MCV (RBC) [Entitic vol] 94.7 fL 81-99 [facility] GEST GLUC SCREEN, 1-HR, 50 G M, NON-FASTINGon 09-24-2022 Glucose 1hr Gest 93 [facility] Gestational diabetes screen 1-hour screen with 50g oral glucose loadOrdered By: Neelima Dahl on 09-24-2022 Glucose 1 Hr post 50 g glucose PO [Mass/Vol] 93 mg/dL 70-140 [facility] Laboratory - Hematology and Cell countsOrdered By: Neelima Dahl on 09-24-2022 Erythrocyte distribution width (RBC) [Entitic vol] 45.2 fL 35.1-43.9 [facility] Erythrocyte distribution width (RBC) [Ratio] 13.1 % 11.6-14.6 [facility] Immature granulocytes/100 WBC (Bld) 0.200 % 0.0-0.9 [facility] Comment on above: IG% - Immature Granu locytes (promyelocytes, myelocytes and metamyelocytes) > 1% indicates that a LEFT SHIFT is Present. MCH (RBC) [Entitic mass] 29.9 pg 27.0-32.0 [facility] Nucleated RBC/100 WBC (Bld) [Ratio] 0 % 0-5 [facility] MCHC Auto (RBC) [Mass/Vol]Or dered By: Neelima Dahl on 09-24-2022 MCHC (RBC) [Mass/Vol] 31.6 g/dL 32-36 [facility] Platelets bldOrdered By: Curtis Dahl on 09-24-2022 Platelets (Bld) [#/Vol] 132 10*3/uL 150-450 [facility] Reagin and Treponema pallidu m IgG and IgM [Interp]on 09-24-2022 T. pallidum IgG+IgM IA Ql (S) Non-Reactive Nonreactive [facility] Serum Treponema species anti body detectionOrdered By: Neelima Dahl on 09-24-2022 Treponema sp Ab Ql (S) Non-Reactive [facility] Absolute lymphocyte countOrd ered By: Jimmy Anna on 08-29-2022 Lymphocytes Auto (Unsp spec) [#/Vol] 1.26 10*3/uL 0.83-4.51 [facility] Basophil percentageOrdered B y: Jimmy Anna on 08-29-2022 Basophil percentage 0-5 SEEN /hpf 0-5 [facility] Basophils/100 WBC (Bld) 0.2 % 0-1 [facility] Bilirubin [Mass/Vol] 0.40 mg/dL 0.20-1.00 [facility] Comment on above: For patients on eltr ombopag therapy, use of Dimension [place] TBIL is not recommended. Chloride [Moles/Vol] 108 mmol/L 98-107 [facility] Eosinophils/100 WBC (Bld) 0.8 % 0-5 [facility] Glucose [Mass/Vol] 77 mg/dL 74-106 [facility] Neutrophils (Bld) [#/Vol] 7.2 10*3/uL 2.0-7.7 [facility] Neutrophils/100 WBC (Bld) 78.5 % 47-70 [facility] Potassium [Moles/Vol] 3.9 mmol/L 3.5-5.1 [facility] Protein [Mass/Vol] 5.6 g/dL 6.4-8.2 [facility] Sodium [Moles/Vol] 138 mmol/L 136-145 [facility] WBC (Bld) [#/Vol] 9.1 10*3/uL 4.4-11.0 [facility] Bilirubin Test strip Ql (U)O rdered By: Jimmy Anna on 08-29-2022 Bilirubin Ql (U) Negative Negative [facility] Blood erythrocytes count (nu mber/volume)Ordered By: Jimmy Anna on 08-29-2022 RBC (Bld) [#/Vol] 3.23 10*6/uL 4.2-5.4 [facility] Blood hemoglobin measurement (mass/volume)Ordered By: Jimmy Anna on 08-29-2022 Hemoglobin (Bld) [Mass/Vol] 9.8 g/dL 12.0-15.0 [facility] Blood lymphocytes/100 leukoc ytesOrdered By: Jimmy Anna on 08-29-2022 Lymphocytes/100 WBC (Bld) 13.8 % 19-41 [facility] Blood monocytes/100 leukocyt esOrdered By: Jimmy Anna on 08-29-2022 Monocytes/100 WBC (Bld) 6.4 % 0-10 [facility] Blood platelet mean volumeOr dered By: Jimmy Anna on 08-29-2022 Platelet mean volume (Bld) [Entitic vol] 12.2 fL 6.2-12.0 [facility] Determination of erythrocyte mean corpuscular volume (MCV)Ordered By: Jimmy Anna on 08-29-2022 MCV (RBC) [Entitic vol] 95.4 fL 81-99 [facility] Hematocrit Auto (Bld) [Volum e fraction]Ordered By: Jimmy Anna on 08-29-2022 Hematocrit (Bld) [Volume fraction] 30.8 % 37-47 [facility] Ketones Test strip Ql (U)Ord ered By: Jimmy Anna on 08-29-2022 Ketones Ql (U) 50 mg/dl Negative [facility] Laboratory - Chemistry and C hemistry - challengeOrdered By: Jimmy Anna on 08-29-2022 ALP [Catalytic activity/Vol] 54 U/L 45-117 [facility] ALT [Catalytic activity/Vol] 19 U/L 13-56 [facility] CO2 [Moles/Vol] 23.0 mmol/L 21.0-32.0 [facility] Globulin (S) [Mass/Vol] 3.1 g/dL 2.2-4.2 [facility] Lipase [Catalytic activity/Vol] 25 U/L 13-75 [facility] Comment on above: Please note:LIPASE r evised reference range effective 22. New Lipase methodology. Expected to produce lower values than the previous assay method. NEW Reference Range: 13 - 75 U/L Urea nitrogen/Creatinine [Mass ratio] 15.5 mg/mg 10-20 [facility] - Hematology and Cell countsOrdered By: Jimmy Anna on 08-29-2022 Erythrocyte distribution width (RBC) [Entitic vol] 47.0 fL 35.1-43.9 [facility] Erythrocyte distribution width (RBC) [Ratio] 13.4 % 11.6-14.6 [facility] Immature granulocytes/100 WBC (Bld) 0.300 % 0.0-0.9 [facility] Comment on above: IG% - Immature Granu locytes (promyelocytes, myelocytes and metamyelocytes) > 1% indicates that a LEFT SHIFT is Present. MCH (RBC) [Entitic mass] 30.3 pg 27.0-32.0 [facility] Nucleated RBC/100 WBC (Bld) [Ratio] 0 % 0-5 [facility] MCHC Auto (RBC) [Mass/Vol]Or dered By: Jimmy Anna on 08-29-2022 MCHC (RBC) [Mass/Vol] 31.8 g/dL 32-36 [facility] Mucus LM Ql (Urine sed)Order ed By: Jimmy Anna on 08-29-2022 Mucus Ql (Urine sed) 1+ /hpf [facility] Nitrite Test strip Ql (U)Ord ered By: Jimmy Anna on 08-29-2022 Nitrite Ql (U) Negative Negative [facility] No Panel InformationOrdered By: Jimmy Anna on 08-29-2022 Estimated Creatinine Clearance Calc 143.95 ml/min [facility] Estimated GFR (MDRD) Amer 196 mL/min >60 [facility] Comment on above: GFR Calc Estimated GFR (MDRD) Non-Af Amer 162 mL/min >60 [facility] Comment on above: Non- GFR Calc Platelets bldOrdered By: Nicky Anna on 08-29-2022 Platelets (Bld) [#/Vol] 142 10*3/uL 150-450 [facility] Protein Test strip Ql (U)Ord ered By: Jimmy Anna on 08-29-2022 Protein Ql (U) 15 mg/dl Negative [facility] Serum or plasma albumin reynaldo urement (mass/volume)Ordered By: Jimmy Anna on 08-29-2022 Albumin [Mass/Vol] 2.5 g/dL 3.2-5.0 [facility] Serum or plasma albumin/glob ulin mass ratioOrdered By: Jimmy Anna on 08-29-2022 Albumin/Globulin [Mass ratio] 0.8 {ratio} 0.9-2.4 [facility] Serum or plasma calcium reynaldo urement (mass/volume)Ordered By: Jimmy Anna on 08-29-2022 Calcium [Mass/Vol] 7.7 mg/dL 8.5-10.1 [facility] Serum or plasma creatinine m easurement (mass/volume)Ordered By: Jimmy Anna on 08-29-2022 Creatinine [Mass/Vol] 0.52 mg/dL 0.55-1.02 [facility] Comment on above: The validity of the calculated GFR & GFRAA in patients over 70 years has not been determined. Clinical correlation is essential. Serum or plasma urea nitroge n measurement (mass/volume)Ordered By: Jimmy Anna on 08-29-2022 Urea nitrogen [Mass/Vol] 8 mg/dL 7-18 [facility] Squamous epithelial cells de tection in urine sediment by light microscopyOrdered By: Jimmy Anna on 08-29-2022 Epithelial cells.squamous LM Ql (Urine sed) 0-5 SEEN /hpf 5-10 [facility] Thin prep Papanicolaou smear with manual screeningOrdered By: Jimmy Anna on 08-29-2022 Thin prep Papanicolaou smear with manual screening 17 U/L 15-37 [facility] Thin prep Papanicolaou smear with manual screening 7 5-15 [facility] Urine blood detectionOrdered By: Jimmy Anna on 08-29-2022 RBC Ql (U) Negative Negative [facility] RBC Ql (U) 0 SEEN /hpf 0-5 [facility] Urine clarityOrdered By: Nicky Anna on 08-29-2022 Clarity (U) Sl. Cloudy Clear [facility] Urine color determinationOrd ered By: Jimmy Anna on 08-29-2022 Color (U) Yellow Yellow [facility] Urine glucose detectionOrder ed By: Jimmy Anna on 08-29-2022 Glucose Ql (U) Normal mg/dl Normal [facility] Urine leukocyte esterase det ection by dipstickOrdered By: Jimmy Anna on 08-29-2022 Leukocyte esterase Test strip Ql (U) 25 /ul Negative [facility] Urine pHOrdered By: Jimmy denise on 08-29-2022 pH (U) 6.0 [pH] 5.0 - 8.0 [facility] Urine sediment bacteria coun t by microscopy (number/high power field)Ordered By: Jimmy Anna on 08-29-2022 Bacteria LM.HPF (Urine sed) [#/Area] Not Reportable [facility] Urine specific gravity measu rementOrdered By: Jimmy Anna on 08-29-2022 Specific gravity (U) [Rel density] 1.020 1.002-1.030 [facility] Urobilinogen Auto test strip Ql (U)Ordered By: Jimmy Anna on 08-29-2022 Urobilinogen Ql (U) Normal mg/dl Normal [facility] Initial Visit (General Surge ry)on [...] upper quadrant abdominal pain History of Present IllnessMsCaitlin Alicia is a 21-year-old female seen in [...] TABS (Ondansetron HCl) Vitals Vital Signs Recorded: 22Aug2022 09:45AM Heart Vcbi967 Gparavoq451 Txsgciolt12 Height5 ft 3 in 2-20 Stature Sodhazkfxh73 % Jdsqxu380 lb 2-20 Weight Shcfxnpecb34 % BMI Gciffoibzw35.38 kg/m2 BMI Vsyopeohdc87 % BSA Calculated1.62 Tobacco Useb) No Falls [...] Aug 22 2022 10:21AM EST (Author) Normal [employer] Absolute lymphocyte countOrd ered By: Krsitofer Low on 08-17-2022 Lymphocytes Auto (Unsp spec) [#/Vol] 1.32 10*3/uL 0.83-4.51 [facility] Basophil percentageOrdered B y: Kristofer Low on 08-17-2022 Basophils/100 WBC (Bld) 0.2 % 0-1 [facility] Bilirubin [Mass/Vol] 0.30 mg/dL 0.20-1.00 [facility] Comment on above: For patients on eltr ombopag therapy, use of Dimension [place] TBIL is not recommended. Chloride [Moles/Vol] 108 mmol/L 98-107 [facility] Eosinophils/100 WBC (Bld) 0.5 % 0-5 [facility] Glucose [Mass/Vol] 79 mg/dL 74-106 [facility] Neutrophils (Bld) [#/Vol] 6.5 10*3/uL 2.0-7.7 [facility] Neutrophils/100 WBC (Bld) 76.2 % 47-70 [facility] Potassium [Moles/Vol] 4.0 mmol/L 3.5-5.1 [facility] Protein [Mass/Vol] 5.6 g/dL 6.4-8.2 [facility] Sodium [Moles/Vol] 137 mmol/L 136-145 [facility] WBC (Bld) [#/Vol] 8.5 10*3/uL 4.4-11.0 [facility] Blood erythrocytes count (nu mber/volume)Ordered By: Kristofer Low on 08-17-2022 RBC (Bld) [#/Vol] 3.21 10*6/uL 4.2-5.4 [facility] Blood hemoglobin measurement (mass/volume)Ordered By: Kristofer Low on 08-17-2022 Hemoglobin (Bld) [Mass/Vol] 10.0 g/dL 12.0-15.0 [facility] Blood lymphocytes/100 leukoc ytesOrdered By: Kristofer Low on 08-17-2022 Lymphocytes/100 WBC (Bld) 15.6 % 19-41 [facility] Blood monocytes/100 leukocyt esOrdered By: Kristofer Low on 08-17-2022 Monocytes/100 WBC (Bld) 7.1 % 0-10 [facility] Blood platelet mean volumeOr dered By: Kristofer Low on 08-17-2022 Platelet mean volume (Bld) [Entitic vol] 11.8 fL 6.2-12.0 [facility] Determination of erythrocyte mean corpuscular volume (MCV)Ordered By: Kristofer Low on 08-17-2022 MCV (RBC) [Entitic vol] 94.7 fL 81-99 [facility] Hematocrit Auto (Bld) [Volum e fraction]Ordered By: Kristofer Low on 08-17-2022 Hematocrit (Bld) [Volume fraction] 30.4 % 37-47 [facility] Laboratory - Chemistry and C hemistry - challengeOrdered By: Kristofer Low on 08-17-2022 ALP [Catalytic activity/Vol] 58 U/L 45-117 [facility] ALT [Catalytic activity/Vol] 28 U/L 13-56 [facility] CO2 [Moles/Vol] 24.0 mmol/L 21.0-32.0 [facility] Globulin (S) [Mass/Vol] 3.2 g/dL 2.2-4.2 [facility] Lipase [Catalytic activity/Vol] 28 U/L 13-75 [facility] Comment on above: Please note:LIPASE r evised reference range effective 22. New Lipase methodology. Expected to produce lower values than the previous assay method. NEW Reference Range: 13 - 75 U/L Urea nitrogen/Creatinine [Mass ratio] 15.9 mg/mg 10-20 [facility] - Hematology and Cell countsOrdered By: Kristofer Low on 08-17-2022 Erythrocyte distribution width (RBC) [Entitic vol] 47.7 fL 35.1-43.9 [facility] Erythrocyte distribution width (RBC) [Ratio] 13.8 % 11.6-14.6 [facility] Immature granulocytes/100 WBC (Bld) 0.400 % 0.0-0.9 [facility] Comment on above: IG% - Immature Granu locytes (promyelocytes, myelocytes and metamyelocytes) > 1% indicates that a LEFT SHIFT is Present. MCH (RBC) [Entitic mass] 31.2 pg 27.0-32.0 [facility] Nucleated RBC/100 WBC (Bld) [Ratio] 0 % 0-5 [facility] MCHC Auto (RBC) [Mass/Vol]Or dered By: Kristofer Low on 08-17-2022 MCHC (RBC) [Mass/Vol] 32.9 g/dL 32-36 [facility] No Panel InformationOrdered By: Kristofer Low on 08-17-2022 Estimated GFR (MDRD) Amer 176 mL/min >60 [facility] Comment on above: GFR Calc Estimated GFR (MDRD) Non-Af Amer 145 mL/min >60 [facility] Comment on above: Non- GFR Calc Platelets bldOrdered By: Lila Low on 08-17-2022 Platelets (Bld) [#/Vol] 137 10*3/uL 150-450 [facility] Serum or plasma albumin reynaldo urement (mass/volume)Ordered By: Kristofer Low on 08-17-2022 Albumin [Mass/Vol] 2.4 g/dL 3.2-5.0 [facility] Serum or plasma albumin/glob ulin mass ratioOrdered By: Kristofer Low on 08-17-2022 Albumin/Globulin [Mass ratio] 0.8 {ratio} 0.9-2.4 [facility] Serum or plasma calcium reynaldo urement (mass/volume)Ordered By: Kristofer Low on 08-17-2022 Calcium [Mass/Vol] 7.6 mg/dL 8.5-10.1 [facility] Serum or plasma creatinine m easurement (mass/volume)Ordered By: Kristofer Low on 08-17-2022 Creatinine [Mass/Vol] 0.56 mg/dL 0.55-1.02 [facility] Comment on above: The validity of the calculated GFR & GFRAA in patients over 70 years has not been determined. Clinical correlation is essential. Serum or plasma urea nitroge n measurement (mass/volume)Ordered By: Kristofer Low on 08-17-2022 Urea nitrogen [Mass/Vol] 9 mg/dL 7-18 [facility] Thin prep Papanicolaou smear with manual screeningOrdered By: Kristofer Low on 08-17-2022 Thin prep Papanicolaou smear with manual screening 46 U/L 15-37 [facility] Thin prep Papanicolaou smear with manual screening 5 5-15 [facility] CBC AND DIFFERENTIALon 07-12 % AUTOMATED IMMATURE GRAN 0.2 % Normal 0.0 - 0.9 [facility] Comment on above: Result Comment: Betty ture Granulocyte Count (IG) includes promyelocytes, myelocytes and metamyelocytes but does not include bands. Percent differential counts (%) should be interpreted in the context of the absolute cell counts (cells/L). Performed By: #### C BCDF #### [facility] [address] [place] [address] Basophils (Bld) [#/Vol] 0.02 10*3/uL Normal 0.00 - 0.1 0 [facility] Comment on above: Performed By: #### C BCDF #### [address] [address] Basophils/100 WBC (Bld) 0.3 % Normal 0.0 - 2.0 [facility] Comment on above: Performed By: #### C BCDF #### [address] [address] Eosinophils (Bld) [#/Vol] 0.24 10*3/uL Normal 0.00 - 0.70 [facility] Comment on above: Performed By: #### C BCDF #### [address] [address] Eosinophils/100 WBC (Bld) 3.8 % Normal 0.0 - 6.0 [facility] Comment on above: Performed By: #### C BCDF #### [address] [address] Erythrocyte distribution width (RBC) [Ratio] 14.1 % Normal 11.5 - 14.5 [facility] Comment on above: Performed By: #### C BCDF #### [address] [address] Hematocrit (Bld) [Volume fraction] 32.2 % Low 36.0 - 46.0 [facility] Comment on above: Performed By: #### C BCDF #### [address] [address] Hemoglobin (Bld) [Mass/Vol] 10.7 g/dL Low 12.0 - 16.0 [facility] Comment on above: Performed By: #### C BCDF #### [address] [address] Lymphocytes (Bld) [#/Vol] 1.40 10*3/uL Normal 1.20 - 4.80 [facility] Comment on above: Performed By: #### C BCDF #### [address] [address] Lymphocytes/100 WBC (Bld) 22.2 % Normal 13.0 - 44.0 [facility] Comment on above: Performed By: #### C BCDF #### [address] [address] MCHC (RBC) [Mass/Vol] 33.2 g/dL Normal 32.0 - 36.0 [facility] Comment on above: Performed By: #### C BCDF #### [address] [address] MCV (RBC) [Entitic vol] 93 fL Normal 80 - 100 [facility] Comment on above: Performed By: #### C BCDF #### [address] [address] Monocytes (Bld) [#/Vol] 0.45 10*3/uL Normal 0.10 - 1.0 0 [facility] Comment on above: Performed By: #### C BCDF #### [address] [address] Monocytes/100 WBC (Bld) 7.1 % Normal 2.0 - 10.0 [facility] Comment on above: Performed By: #### C BCDF #### [address] [address] Neutrophils (Bld) [#/Vol] 4.20 10*3/uL Normal 1.20 - 7.70 [facility] Comment on above: Result Comment: Perc ent differential counts (%) should be interpreted in the context of the absolute cell counts (cells/L). Performed By: #### C BCDF #### [address] [address] Neutrophils/100 WBC (Bld) 66.4 % Normal 40.0 - 80.0 [facility] Comment on above: Performed By: #### C BCDF #### [address] [address] Platelets (Bld) [#/Vol] 136 10*3/uL Low 150 - 450 [facility] Comment on above: Performed By: #### C BCDF #### [address] [address] RBC 3.48 x10E12/L Low 4.00 - 5.20 [facility] Comment on above: Performed By: #### C BCDF #### [address] [address] WBC (Bld) [#/Vol] 6.3 10*3/uL Normal 4.4 - 11.3 [facility] Comment on above: Performed By: #### C BCDF #### [address] [address] COMPREHENSIVE PANELon 2022 Albumin [Mass/Vol] 3.4 g/dL Normal 3.4 - 5.0 [facility] Comment on above: Performed By: #### C MP #### [address] [address] ALP [Catalytic activity/Vol] 40 U/L Normal 33 - 110 [facility] Comment on above: Performed By: #### C MP #### [address] [address] ALT [Catalytic activity/Vol] 11 U/L Normal 7 - 45 [facility] Comment on above: Result Comment: Gema ents treated with Sulfasalazine may generate falsely decreased results for ALT. Performed By: #### C MP #### [address] [address] Anion gap [Moles/Vol] 8 mmol/L Low 10 - 20 [facility] Comment on above: Performed By: #### C MP #### [address] [address] AST [Catalytic activity/Vol] 12 U/L Normal 9 - 39 [facility] Comment on above: Performed By: #### C MP #### [address] [address] Bilirubin [Mass/Vol] 0.4 mg/dL Normal 0.0 - 1.2 [facility] Comment on above: Performed By: #### C MP #### [address] [address] Calcium [Mass/Vol] 8.4 mg/dL Low 8.6 - 10.3 [facility] Comment on above: Performed By: #### C MP #### [address] [address] Chloride [Moles/Vol] 104 mmol/L Normal 98 - 107 [facility] Comment on above: Performed By: #### C MP #### [address] [address] Creatinine [Mass/Vol] 0.45 mg/dL Low 0.50 - 1.05 [facility] Comment on above: Performed By: #### C MP #### [address] [address] eGFR FEMALE >90 Normal >90 [facility] Comment on above: Result Comment: CALC ULATIONS OF ESTIMATED GFR ARE PERFORMED USING THE 2020 CKD-EPI STUDY REFIT EQUATION WITHOUT THE RACE VARIABLE FOR THE IDMS-TRACEABLE CREATININE METHODS. https://jasn.asnjournals.org/content/early//ASN.2020 092798 Performed By: #### C MP #### [address] [address] Glucose [Mass/Vol] 74 mg/dL Normal 74 - 99 [facility] Comment on above: Performed By: #### C MP #### [address] [address] HCO3 (Bld) [Moles/Vol] 27 mmol/L Normal 21 - 32 [facility] Comment on above: Performed By: #### C MP #### [address] [address] Potassium [Moles/Vol] 3.8 mmol/L Normal 3.5 - 5.3 [facility] Comment on above: Performed By: #### C MP #### [address] [address] Protein [Mass/Vol] 5.7 g/dL Low 6.4 - 8.2 [facility] Comment on above: Performed By: #### C MP #### [address] [address] Sodium [Moles/Vol] 135 mmol/L Low 136 - 145 [facility] Comment on above: Performed By: #### C MP #### [address] [address] Urea nitrogen [Mass/Vol] 5 mg/dL Low 6 - 23 [facility] Comment on above: Performed By: #### C MP #### [address] [address] LACTATEon 07-12-2022 Lactate [Moles/Vol] 0.5 mmol/L Normal 0.4 - 2.0 [facility] Comment on above: Result Comment: Nilam puncture immediately after or during the administration of Metamizole may lead to falsely low results. Testing should be performed immediately prior to Metamizole dosing. Performed By: #### L ACT #### [address] [address] LIPASEon 07-12-2022 Lipase [Catalytic activity/Vol] 8 U/L Low 9 - 82 [facility] Comment on above: Result Comment: Nilam puncture immediately after or during the administration of Metamizole may lead to falsely low results. Testing should be performed immediately prior to Metamizole dosing. T-gihgdb-a-benzoquinone imine (metabolite of Acetaminophen) will generate erroneously low results in samples for patients that have taken toxic doses of acetaminophen. Performed By: #### L IPAS #### [address] [address] Provider Note - ED v3on 06- Provider Note - ED v3 Provider Note: [...] home. She was referred back to her DRAINAGE INSPECTOR and - general surgeon for follow up. This chart was dictated with the use of itsDapper software within the framework of the current [...] HISTORY: No docume (more content not included)... Normal [facility] Risk Screen - Adult Emergenc yon 07-12-2022 Risk Screen - Adult Emergency Preferred Language: Preferred Language: Preferred Language for Discussing Health Care (patient/designee)[facility] Patient Preferred Pharmacy: Patient Preferred Pharmacy [...] instruction; written material Cultural Considerationsnone Developmental Considerationsnone Taoist Considerationsnone Learning Assessment (Other Learner): Learning Assessment [...] an injured patient at a Trauma Center ([facility]/[place]aseem deborah/[place]): no Electronic Signatures: Kayla Sullivan (SUPV) (Signed 12-Jul-2022 13:37) Authored: Preferred Language, Patient Preferred Pharmacy, Advanced Directives, Family Violence Adult, Learning Assessment (Patient), Learning Assessment (Other Learner), Pressure Injury/TB/Substance, Pressure Injury, CAGE Last Updated: 12-Jul-2022 13:37 by Kayla Sullivan (SUPV) [facility] Triage - EDon 07-12-2022 Triage - ED [...] BMI (kg/m2): 21.289 Calculated BSA (m2) 1.56 [place] Coma Scale: Best Eye Response: (E4) spontaneous Best Motor Response: (M6) obeys commands Best Verbal Response: (V5) oriented Zoran Score: 15 Allergies: no DRAINAGE INSPECTOR History: Patient has homicidal thoughts: no Symptoms [...] Medical History Reviewedyes Electronic Signatures: Kayla Sullivan (AMANDA) (Signed 12-Jul-2022 13:35) Entered: Risk Screens, Pain, Travel History, Chart Review, Scores, Past Medical History Authored: Quick Triage, Risk Screens, Pain, Travel History, Chart Review, Scores, Past Medical History Last Updated: 12-Jul-2022 13:35 by Kayla Sullivan (SUPV) Normal [facility] URINALYSIS WITH CULTURE IF I NDICATEDon 07-12-2022 Appearance (U) HAZY Normal CLEAR [facility] Comment on above: Performed By: #### U ARFX #### [place] [address] Bilirubin Ql (U) Negative Normal NEGATIVE [facility] Comment on above: Performed By: #### U ARFX #### [place] [address] Color (U) Yellow Normal STRAW,YELLOW [facility] Comment on above: Performed By: #### U ARFX #### [place] [address] Glucose Ql (U) Negative Normal NEGATIVE [facility] Comment on above: Performed By: #### U ARFX #### [place] [address] Hemoglobin Ql (U) Negative Normal NEGATIVE [facility] Comment on above: Performed By: #### U ARFX #### [place] [address] Ketones Ql (U) Negative Normal NEGATIVE [facility] Comment on above: Performed By: #### U ARFX #### [place] [address] Leukocyte esterase Test strip Ql (U) Negative Normal NEGATIVE [facility] Comment on above: Performed By: #### U ARFX #### [place] [address] Nitrite Ql (U) Negative Normal NEGATIVE [facility] Comment on above: Performed By: #### U ARFX #### [place] [address] pH (U) 8.0 [pH] Normal 5.0 - 8.0 [facility] Comment on above: Performed By: #### U ARFX #### [place] [address] Protein Ql (U) Negative Normal NEGATIVE [facility] Comment on above: Performed By: #### U ARFX #### [place] [address] Specific gravity (U) [Rel density] 1.014 Normal 1.005 - 1.035 [facility] Comment on above: Performed By: #### U ARFX #### [address] [place] [address] Urobilinogen (U) [Mass/Vol] mg/dL Normal 0.0 - 1.9 [facility] Comment on above: Performed By: #### U ARFX #### [address] [address] US GALLBLADDERon 07-12-2022 US GALLBLADDER STUDY: Right Upper Quadrant Ultrasound; Completed Time: 07/12/2022 15:04 INDICATION: Generalized abdominal pain. Nausea/vomiting. 16 weeks . COMPARISON: None available. ACCESSION NUMBER(S): [id number] ORDERING CLINICIAN: MAURICIO REYES DO TECHNIQUE: Ultrasound [...] DO Electronically signed by: VERNA BURROWS DO Normal [facility] Absolute lymphocyte countOrd ered By: Neelima Dahl on 05-24-2022 Lymphocytes Auto (Unsp spec) [#/Vol] 1.63 10*3/uL 0.83-4.51 [facility] Basophil percentageOrdered B y: Neelima Dahl on 05-24-2022 Basophils/100 WBC (Bld) 0.6 % 0-1 [facility] Eosinophils/100 WBC (Bld) 1.4 % 0-5 [facility] Neutrophils (Bld) [#/Vol] 2.8 10*3/uL 2.0-7.7 [facility] Neutrophils/100 WBC (Bld) 55.5 % 47-70 [facility] WBC (Bld) [#/Vol] 5.0 10*3/uL 4.4-11.0 [facility] Blood erythrocytes count (nu mber/volume)Ordered By: Neelima Dahl on 05-24-2022 RBC (Bld) [#/Vol] 4.08 10*6/uL 4.2-5.4 [facility] Blood hemoglobin measurement (mass/volume)Ordered By: Neelima Dahl on 05-24-2022 Hemoglobin (Bld) [Mass/Vol] 12.2 g/dL 12.0-15.0 [facility] Blood lymphocytes/100 leukoc ytesOrdered By: Neelima Dahl on 05-24-2022 Lymphocytes/100 WBC (Bld) 32.5 % 19-41 [facility] Blood monocytes/100 leukocyt esOrdered By: Neelima Dahl on 05-24-2022 Monocytes/100 WBC (Bld) 9.8 % 0-10 [facility] Blood platelet mean volumeOr dered By: Neelima Dahl on 05-24-2022 Platelet mean volume (Bld) [Entitic vol] 11.4 fL 6.2-12.0 [facility] C. trachomatis+N. gonorrhoea e DNA SHYAM+probe Ql (Unsp spec)on 05-24-2022 C. trachomatis rRNA SHYAM+probe Ql (Unsp spec) Negative Negative for Chlamydia trachomatis by amplificaton [facility] N. gonorrhoeae rRNA SHYAM+probe Ql (Unsp spec) Negative Negative for Neisseria gonorrhoeae by amplification [facility] Culture, urineOrdered By: Pedro Dahl on 05-24-2022 Bacteria identified Cx Nom (U) Culture exhibits no growth. [facility] Determination of erythrocyte mean corpuscular volume (MCV)Ordered By: Neelima Dahl on 05-24-2022 MCV (RBC) [Entitic vol] 91.2 fL 81-99 [facility] HEP B SURF AG SCRNon 023 HBV surface Ag Ql (S) Non-Reactive C [facility] HEPATITIS C ANTIBODY IA WITH CONFIRMATIONon 05-24-2022 HCV Ab Ql (S) Negative Negative [facility] HIV 1 and HIV-2 antibody ass ay with HIV-1 p24 antigen detectionOrdered By: Neelima Dahl on 05-24-2022 HIV 1+2 Ab+HIV1 p24 Ag IA Ql Non-Reactive [facility] HIV COMBO (AC)on 05-24-2022 HIV Combo Non-Reactive [facility] Hematocrit Auto (Bld) [Volum e fraction]Ordered By: Neelima Dahl on 05-24-2022 Hematocrit (Bld) [Volume fraction] 37.2 % 37-47 [facility] Laboratory - Hematology and Cell countsOrdered By: Neelima Dahl on 05-24-2022 Erythrocyte distribution width (RBC) [Entitic vol] 46.2 fL 35.1-43.9 [facility] Erythrocyte distribution width (RBC) [Ratio] 13.8 % 11.6-14.6 [facility] Immature granulocytes/100 WBC (Bld) 0.200 % 0.0-0.9 [facility] Comment on above: IG% - Immature Granu locytes (promyelocytes, myelocytes and metamyelocytes) > 1% indicates that a LEFT SHIFT is Present. MCH (RBC) [Entitic mass] 29.9 pg 27.0-32.0 [facility] Nucleated RBC/100 WBC (Bld) [Ratio] 0 % 0-5 [facility] MCHC Auto (RBC) [Mass/Vol]Or dered By: Neelima Dahl on 05-24-2022 MCHC (RBC) [Mass/Vol] 32.8 g/dL 32-36 [facility] No Panel InformationOrdered By: Neelima Dahl on 05-24-2022 Hepatitis B Surface Antigen Non-Reactive Nonreactive [facility] Hepatitis C Antibody Non-Reactive Nonreactive [facility] Comment on above: Non Reactive: < 0.8 Equivocal: >/= 0.8 to < 1.0 Reactive: >/= 1.0The CDC recommends that a reactive/equivocal HCV antibody result be followed up by the HCV Nucleic Acid Amplificationtest ([id number]) Rubella IgG Antibody Reactive Nonreactive [facility] Comment on above: Antibody Results Int erpretation of Immune Status Non Reactive Presumed Non-Immune Equivocal Equivocal Reactive Presumed Immune Platelets bldOrdered By: Curtis Dahl on 05-24-2022 Platelets (Bld) [#/Vol] 249 10*3/uL 150-450 [facility] RUBELLA IGG ABon 05-24-2022 Rubella IgG, Qual Positive Positive [facility] Reagin and Treponema pallidu m IgG and IgM [Interp]on 05-24-2022 Syphilis Screen Result Non-Reactive [facility] Serum Treponema species anti body detectionOrdered By: Neelima Dahl on 05-24-2022 Treponema sp Ab Ql (S) Non-Reactive [facility] Serum Varicella zoster virus IgG antibody assay by immunoassay (units/volume)Ordered By: Neelima aDhl on 05-24-2022 VZV IgG IA Qn (S) 404 index Immune >165 [facility] Comment on above: Negative <135 Equivo hoda 135 - 165 Positive >165A positive result generally indicates exposure to thepathogen or administration of specific immunoglobulins,but it is not indication of active infection or stageof disease.Performed at: [facility] [place], [place] [id number] Director: Rakan Gomez PhD, Phone: [phone] Serum or plasma choriogonado tropin detectionOrdered By: Dr. Dahl on 04-19-2022 HCG ( test) Ql 1067 mIU/mL <4 [facility] Comment on above: hCG levels with Gest ational AgeGestational Age hCG mIU/mL (IU/L)0.2 - 1 week 5 - 501-2 weeks 50 - 5002-3 weeks 100 - 67642-6 weeks 500 - 235620-6 weeks 1000 - 265228-4 weeks [address] - 100,0006-8 weeks 94958 - 200,0002-3 months [address] - 100,000 HIV 1 and HIV-2 antibody ass ay with HIV-1 p24 antigen detectionOrdered By: Dr. Dahl on 02-07-2022 HIV 1+2 Ab+HIV1 p24 Ag IA Ql Non-Reactive Nonreactive [facility] Laboratory - Chemistry and C hemistry - challengeOrdered By: Dr. Dahl on 02-07-2022 Free T4 [Mass/Vol] 0.91 ng/dL 0.76-1.46 [facility] No Panel InformationOrdered By: Dr. Dahl on 02-07-2022 Hepatitis A Antibody Total Positive Negative [facility] Comment on above: Performed at: [facility] [address] [id number] Director: Rakan Gomez PhD, Phone: [phone] Hepatitis A IgM Antibody Negative Negative [facility] Hepatitis B Core IgM Antibody Negative Negative [facility] Hepatitis C Antibody (EIA) <0.1 s/co ratio 0.0-0.9 [facility] Hepatitis C Antibody Comment Comment . [facility] Comment on above: NegativeNot infected with HCV, unless recent infection issuspected or other evidence exists to indicate HCVinfection. Thyroid Stimulating Hormone (TSH) 1.76 uIU/mL 0.358-3.74 [facility] Serum Treponema species anti body detectionOrdered By: Dr. Dahl on 02-07-2022 Treponema sp Ab Ql (S) Non-Reactive [facility] Serum hepatitis B virus surf sarita antibody IgG detectionOrdered By: Dr. Dahl on 02-07-2022 HBV surface IgG Ql (S) Non-Reactive [facility] Comment on above: Non Reactive: Incons istent with immunity less than <10 mIU/mL Reactive: Consistent with immunity greater than or equal to 10 mIU/mL Serum or plasma hepatitis B virus surface antigen detection by immunoassayOrdered By: Dr. Dahl on 02-07-2022 HBV surface Ag IA Ql Negative Negative [facility] Serum or plasma prolactin me asurement (mass/volume)Ordered By: Dr. Dahl on 02-07-2022 Prolactin [Mass/Vol] 27.2 ng/mL [facility] Comment on above: NORMAL REFERENCE RAN GES FEMALE NON- 2.2 - 30.3 ng/mL 8.1 - 347.6 ng/mL POST-MENOPAUSAL 0.7 - 31.5 ng/mL MALE 2.5 - 17.4 ng/mL HIV 1 and HIV-2 antibody ass ay with HIV-1 p24 antigen detectionon 12-12-2021 HIV 1+2 Ab+HIV1 p24 Ag IA Ql Non-Reactive Nonreactive [facility] Work Phone: Basophil percentageon 2021 Bilirubin [Mass/Vol] 0.40 mg/dL 0.20-1.00 [facility] Work Phone: Comment on above: For patients on eltr ombopag therapy, use of Dimension [place] TBIL is not recommended. Chloride [Moles/Vol] 108 mmol/L 98-107 [facility] Work Phone: Glucose [Mass/Vol] 65 mg/dL 74-106 [facility] Work Phone: [phone] Potassium [Moles/Vol] 4.1 mmol/L 3.5-5.1 Agustin ster [facility] Work Phone: [phone] Protein [Mass/Vol] 6.7 g/dL 6.4-8.2 [facility] Work Phone: [phone] Sodium [Moles/Vol] 141 mmol/L 136-145 [facility] Work Phone: [phone] WBC (Bld) [#/Vol] 6.5 10*3/uL 4.4-11.0 [facility] Work Phone: [phone] Blood erythrocytes count (nu mber/volume)on 12-01-2021 RBC (Bld) [#/Vol] 4.09 10*6/uL 4.2-5.4 [facility] Work Phone: [phone] Blood hemoglobin measurement (mass/volume)on 12-01-2021 Hemoglobin (Bld) [Mass/Vol] 13.0 g/dL 12.0-15.0 [facility] Work Phone: [phone] Blood platelet mean volumeon 12-01-2021 Platelet mean volume (Bld) [Entitic vol] 12.0 fL 6.2-12.0 [facility] Work Phone: [phone] Determination of erythrocyte mean corpuscular volume (MCV)on 12-01-2021 MCV (RBC) [Entitic vol] 94.1 fL 81-99 [facility] Work Phone: [phone] Hematocrit Auto (Bld) [Volum e fraction]on 12-01-2021 Hematocrit (Bld) [Volume fraction] 38.5 % 37-47 [facility] Work Phone: [phone] Iron measurement (mass/mass) on 12-01-2021 Iron (Unsp spec) [Mass/Mass] 28 ug/dL 50-170 [facility] Work Phone: [phone] Laboratory - Chemistry and C hemistry - challengeon 12-01-2021 ALP [Catalytic activity/Vol] 51 U/L 45-117 [facility] Work Phone: ALT [Catalytic activity/Vol] 21 U/L 13-56 [facility] Work Phone: CO2 [Moles/Vol] 28.0 mmol/L 21.0-32.0 [facility] Work Phone: [phone] Globulin (S) [Mass/Vol] 3.2 g/dL 2.2-4.2 [facility] Work Phone: [phone] Urea nitrogen/Creatinine [Mass ratio] 10.5 mg/mg 10-20 [facility] Work Phone: [phone] Laboratory - Hematology and Cell countson 12-01-2021 Erythrocyte distribution width (RBC) [Entitic vol] 45.0 fL 35.1-43.9 [facility] Work Phone: [phone] Erythrocyte distribution width (RBC) [Ratio] 13.1 % 11.6-14.6 [facility] Work Phone: [phone] MCH (RBC) [Entitic mass] 31.8 pg 27.0-32.0 [facility] Work Phone: MCHC Auto (RBC) [Mass/Vol]on 12-01-2021 MCHC (RBC) [Mass/Vol] 33.8 g/dL 32-36 [facility] Work Phone: No Panel Informationon 12-01 Estimated GFR (MDRD) Amer 147 mL/min >60 [facility] Work Phone: Comment on above: GFR Calc Estimated GFR (MDRD) Non-Af Amer 121 mL/min >60 [facility] Work Phone: Comment on above: Non- GFR Calc Thyroid Stimulating Hormone (TSH) 0.83 uIU/mL 0.358-3.74 [facility] Work Phone: Total Iron Binding Capacity 339 ug/dL 250-450 [facility] Work Phone: Vitamin D 25-Hydroxy 30.6 ng/mL [facility] Work Phone: Comment on above: Vitamin D 25(OH) Sta tus Range Deficiency <20 ng/mL (50nmol/L) Insufficiency 20 - 30 ng/mL (50 - 75 nmol/L) Sufficiency 30 - 100 ng/mL (75 - 250 nmol/L) Toxicity >100 ng/mL (>250 nmol/L) Platelets bldon 12-01-2021 Platelets (Bld) [#/Vol] 213 10*3/uL 150-450 [facility] Work Phone: Serum or plasma albumin reynaldo urement (mass/volume)on 12-01-2021 Albumin [Mass/Vol] 3.5 g/dL 3.2-5.0 [facility] Work Phone: Serum or plasma albumin/glob ulin mass ratioon 12-01-2021 Albumin/Globulin [Mass ratio] 1.1 {ratio} 0.9-2.4 [facility] Work Phone: Serum or plasma calcium reynaldo urement (mass/volume)on 12-01-2021 Calcium [Mass/Vol] 8.8 mg/dL 8.5-10.1 [facility] Work Phone: Serum or plasma creatinine m easurement (mass/volume)on 12-01-2021 Creatinine [Mass/Vol] 0.67 mg/dL 0.55-1.02 [facility] Work Phone: Comment on above: The validity of the calculated GFR & GFRAA in patients over 70 years has not been determined. Clinical correlation is essential. Serum or plasma ferritin jose raul surement (mass/volume)on 12-01-2021 Ferritin [Mass/Vol] 34 ng/mL 8-252 [facility] Work Phone: Serum or plasma urea nitroge n measurement (mass/volume)on 12-01-2021 Urea nitrogen [Mass/Vol] 7 mg/dL 7-18 [facility] Work Phone: Thin prep Papanicolaou smear with manual screeningon 12-01-2021 Thin prep Papanicolaou smear with manual screening 11 U/L 15-37 [facility] Work Phone: [phone] Thin prep Papanicolaou smear with manual screening 5 5-15 [facility] Work Phone: [phone] Whole blood hemoglobin A1c/t otal hemoglobin ratio (mass fraction)on 12-01-2021 HbA1c (Bld) [Mass fraction] 5.1 % 3.8-5.6 [facility] Work Phone: Comment on above: Normal < 5.7 % Predi abetic 5.7 - 6.4 % Diabetic >or= 6.5 % Please note range changes. UA DIP, URINE (POC)on 2021 BILIRUBIN UA (POCT) Negative Negative [facility] CLARITY UA (POCT) Clear [facility] COLOR UA (POCT) Yellow [facility] GLUCOSE UA (POCT) Negative Negative mg/dL [facility] HEMOGLOBIN/BLOOD UA (POCT) Negative Negative [facility] KETONE UA (POCT) Negative Negative mg/dL [facility] LEUKOCYTES UA (POCT) Negative Negative [facility] NITRITE UA (POCT) Negative Negative [facility] PH UA (POCT) 6.5 4.5 - 8.0 [facility] Protein Ql (U) 30 mg/dL Abnormal Negative mg/dL [facility] SPECIFIC GRAVITY UA (POCT) 1.020 1.005 - 1.030 [facility] UROBILINOGEN UA (POCT) 0.2 E.U./dL Normal E.U./ dL [facility] Absolute lymphocyte counton 10-31-2021 Lymphocytes Auto (Unsp spec) [#/Vol] 2.34 10*3/uL 0.83-4.51 [facility] Work Phone: [phone] Basophil percentageon 2021 Basophils/100 WBC (Bld) 0.3 % 0-1 [facility] Work Phone: [phone] Bilirubin [Mass/Vol] 0.50 mg/dL 0.20-1.00 [facility] [place] Work Phone: Comment on above: For patients on eltr ombopag therapy, use of Dimension [place] TBIL is not recommended. Chloride [Moles/Vol] 105 mmol/L 98-107 [facility] [place] Work Phone: Eosinophils/100 WBC (Bld) 1.0 % 0-5 [facility] Work Phone: Glucose [Mass/Vol] 66 mg/dL 74-106 [facility] Work Phone: Neutrophils (Bld) [#/Vol] 3.7 10*3/uL 2.0-7.7 [facility] Work Phone: Neutrophils/100 WBC (Bld) 56.1 % 47-70 [facility] Work Phone: Potassium [Moles/Vol] 3.4 mmol/L 3.5-5.1 [facility] Work Phone: Protein [Mass/Vol] 7.2 g/dL 6.4-8.2 [facility] Work Phone: Sodium [Moles/Vol] 139 mmol/L 136-145 [facility] Work Phone: WBC (Bld) [#/Vol] 6.7 10*3/uL 4.4-11.0 [facility] Work Phone: Blood erythrocytes count (nu mber/volume)on 10-31-2021 RBC (Bld) [#/Vol] 4.48 10*6/uL 4.2-5.4 [facility] Work Phone: Blood hemoglobin measurement (mass/volume)on 10-31-2021 Hemoglobin (Bld) [Mass/Vol] 14.0 g/dL 12.0-15.0 [facility] Work Phone: Blood lymphocytes/100 leukoc yteson 10-31-2021 Lymphocytes/100 WBC (Bld) 35.1 % 19-41 [facility] Work Phone: Blood monocytes/100 leukocyt eson 10-31-2021 Monocytes/100 WBC (Bld) 7.2 % 0-10 [facility] Work Phone: Blood platelet mean volumeon 10-31-2021 Platelet mean volume (Bld) [Entitic vol] 12.4 fL 6.2-12.0 [facility] Work Phone: Chlamydia trachomatis rRNA d etection by probe and target amplification methodon 10-31-2021 C. trachomatis rRNA SHYAM+probe Ql (Unsp spec) Negative Negative [facility] Work Phone: [phone] Determination of erythrocyte mean corpuscular volume (MCV)on 10-31-2021 MCV (RBC) [Entitic vol] 94.9 fL 81-99 [facility] Work Phone: [phone] Hematocrit Auto (Bld) [Volum e fraction]on 10-31-2021 Hematocrit (Bld) [Volume fraction] 42.5 % 37-47 [facility] Work Phone: Laboratory - Chemistry and C hemistry - challengeon 10-31-2021 ALP [Catalytic activity/Vol] 47 U/L 45-117 [facility] Work Phone: ALT [Catalytic activity/Vol] 22 U/L 13-56 [facility] Work Phone: CO2 [Moles/Vol] 27.0 mmol/L 21.0-32.0 [facility] Work Phone: Free T4 [Mass/Vol] 0.92 ng/dL 0.76-1.46 [facility] Work Phone: [phone] Globulin (S) [Mass/Vol] 3.3 g/dL 2.2-4.2 [facility] Work Phone: Urea nitrogen/Creatinine [Mass ratio] 10.3 mg/mg 10-20 [facility] Work Phone: [phone] Laboratory - Hematology and Cell countson 10-31-2021 Erythrocyte distribution width (RBC) [Entitic vol] 44.2 fL 35.1-43.9 [facility] Work Phone: [phone] Erythrocyte distribution width (RBC) [Ratio] 12.6 % 11.6-14.6 [facility] Work Phone: [phone] Immature granulocytes/100 WBC (Bld) 0.300 % 0.0-0.9 [facility] Work Phone: Comment on above: IG% - Immature Granu locytes (promyelocytes, myelocytes and metamyelocytes) > 1% indicates that a LEFT SHIFT is Present. MCH (RBC) [Entitic mass] 31.3 pg 27.0-32.0 [facility] Work Phone: Nucleated RBC/100 WBC (Bld) [Ratio] 0 % 0-5 [facility] Work Phone: Laboratory - Microbiology an d Antimicrobial susceptibilityon 10-31-2021 N. gonorrhoeae DNA SHYAM+probe Ql (Unsp spec) Negative Negative [facility] Work Phone: Comment on above: Performed at: =[facility] [address] [id number] Director: Romy Mcarthur MD, Phone: [phone] MCHC Auto (RBC) [Mass/Vol]on 10-31-2021 MCHC (RBC) [Mass/Vol] 32.9 g/dL 32-36 [facility] Work Phone: No Panel Informationon 10-31 Estimated GFR (MDRD) Amer 143 mL/min >60 [facility] Work Phone: Comment on above: GFR Calc Estimated GFR (MDRD) Non-Af Amer 118 mL/min >60 [facility] Work Phone: Comment on above: Non- GFR Calc Follicle Stimulating Hormone 3.2 mIU/mL [facility] Work Phone: Comment on above: NORMAL REFERENCE RAN GES FEMALE FOLLICULAR 2.3 - 12.6 mIU/mL MID-CYCLE PEAK 5.2 - 17.5 mIU/mL LUTEAL 1.7 - 12.9 mIU/mL POST-MENOPAUSAL ON MHT 5.9 - 72.8 mIU/mL NOT ON MHT 12.7 - 132.2 mlU/mL MALE 0.7 - 10.8 mIU/mL Luteinizing Hormone 2.2 mIU/mL [facility] Work Phone: Comment on above: NORMAL REFERENCE RAN GES FEMALE FOLLICULAR 1.9 - 26.2 mIU/mL MID-CYCLE PEAK 22.8 - 76.1 mIU/mL LUTEAL 0.6 - 16.6 mIU/mL POST-MENOPAUSAL ON MHT 1.1 - 52.4 mIU/mL NOT ON MHT 8.6 - 61.8 mIU/mL MALE 1.2 - 10.6 mIU/mL Thyroid Stimulating Hormone (TSH) 0.94 uIU/mL 0.358-3.74 [facility] Work Phone: Platelets bldon 10-31-2021 Platelets (Bld) [#/Vol] 206 10*3/uL 150-450 [facility] Work Phone: Serum or plasma albumin reynaldo urement (mass/volume)on 10-31-2021 Albumin [Mass/Vol] 3.9 g/dL 3.2-5.0 [facility] Work Phone: Serum or plasma albumin/glob ulin mass ratioon 10-31-2021 Albumin/Globulin [Mass ratio] 1.2 {ratio} 0.9-2.4 [facility] Work Phone: Serum or plasma calcium reynaldo urement (mass/volume)on 10-31-2021 Calcium [Mass/Vol] 8.4 mg/dL 8.5-10.1 [facility] Work Phone: Serum or plasma choriogonado tropin detectionon 10-31-2021 HCG ( test) Ql < 1 mIU/mL <4 [facility] Work Phone: Comment on above: hCG levels with Gest ational AgeGestational Age hCG mIU/mL (IU/L)0.2 - 1 week 5 - 501-2 weeks 50 - 5002-3 weeks 100 - 66138-3 weeks 500 - 643739-6 weeks 1000 - 031230-9 weeks 60751 - 100,0006-8 weeks 51253 - 200,0002-3 months 87347 - 100,000 Serum or plasma creatinine m easurement (mass/volume)on 10-31-2021 Creatinine [Mass/Vol] 0.68 mg/dL 0.55-1.02 [facility] Work Phone: Comment on above: The validity of the calculated GFR & GFRAA in patients over 70 years has not been determined. Clinical correlation is essential. Serum or plasma prolactin me asurement (mass/volume)on 10-31-2021 Prolactin [Mass/Vol] 16.7 ng/mL [facility] [place] Work Phone: Comment on above: NORMAL REFERENCE RAN GES FEMALE NON- 2.2 - 30.3 ng/mL 8.1 - 347.6 ng/mL POST-MENOPAUSAL 0.7 - 31.5 ng/mL MALE 2.5 - 17.4 ng/mL Serum or plasma urea nitroge n measurement (mass/volume)on 10-31-2021 Urea nitrogen [Mass/Vol] 7 mg/dL 7-18 [facility] Work Phone: Thin prep Papanicolaou smear with manual screeningon 10-31-2021 Thin prep Papanicolaou smear with manual screening 13 U/L 15-37 [facility] Work Phone: Thin prep Papanicolaou smear with manual screening 7 5-15 [facility] Work Phone: HCG QUAL UR B/Oon 08-14-2021 status Negative neg - pos [facility] Quality Check Yes [facility] UA DIP, URINE (POC)on 2021 BILIRUBIN UA (POCT) Negative Negative [facility] CLARITY UA (POCT) Cloudy [facility] COLOR UA (POCT) Yellow [facility] GLUCOSE UA (POCT) Negative Negative mg/dL [facility] HEMOGLOBIN/BLOOD UA (POCT) Negative Negative [facility] KETONE UA (POCT) Trace Negative mg/dL [facility] LEUKOCYTES UA (POCT) Negative Negative [facility] NITRITE UA (POCT) Negative Negative [facility] PH UA (POCT) 7.0 4.5 - 8.0 [facility] Protein Ql (U) Negative Negative mg/dL [facility] SPECIFIC GRAVITY UA (POCT) 1.020 1.005 - 1.030 [facility] UROBILINOGEN UA (POCT) 1.0 E.U./dL Normal E.U./ dL [facility] Serum or plasma choriogonado tropin detectionon 05-17-2021 HCG ( test) Ql 4 mIU/mL <4 [facility] Work Phone: Comment on above: hCG levels with Gest ational AgeGestational Age hCG mIU/mL (IU/L)0.2 - 1 week 5 - 501-2 weeks 50 - 5002-3 weeks 100 - 07674-1 weeks 500 - 689952-8 weeks 1000 - 417891-6 weeks 74201 - 100,0006-8 weeks 57271 - 200,0002-3 months 82393 - 100,000 Basic Panelon 07-19-2019 Anion gap [Moles/Vol] 11 mmol/L Normal 9-18 [facility] Comment on above: Performed By: #### L LP8 #### [facility] [address] [place], [place] [address] Calcium [Mass/Vol] 9.2 mg/dL Normal 8.4-10.2 [facility] Comment on above: Performed By: #### L LP8 #### [facility] [address] [place], [place] [address] Chloride [Moles/Vol] 98 mmol/L Normal 97-105 [facility] Comment on above: Result Comment: Refe rence ranges for this patient`s age group have not been established. These reference ranges reflect verified or established ranges for the adult population. Interpret ranges with caution using the clinical context and additional reference resources. Performed By: #### L LP8 #### [facility] [address] [place], [place] [address] CO2 Blood 25 mmol/L Normal 22-30 [facility] Comment on above: Result Comment: Refe rence ranges for this patient`s age group have not been established. These reference ranges reflect verified or established ranges for the adult population. Interpret ranges with caution using the clinical context and additional reference resources. Performed By: #### L LP8 #### [facility] [address] [place], [place] [address] Creatinine [Mass/Vol] 0.81 mg/dL Normal 0.58-0.96 [facility] Comment on above: Result Comment: Refe rence ranges for this patient`s age group have not been established. These reference ranges reflect verified or established ranges for the adult population. Interpret ranges with caution using the clinical context and additional reference resources. Performed By: #### L LP8 #### [facility] [address] [place], [place] [address] Glucose [Mass/Vol] 120 mg/dL High 74-99 [facility] Comment on above: Result Comment: Refe rence ranges for this patient`s age group have not been established. These reference ranges reflect verified or established ranges for the adult population. Interpret ranges with caution using the clinical context and additional reference resources. The [place] [employer] (ADA) provides guidance for cutoff [...] Standards of Medical Care in Diabetes 2016; [employer]. Diabetes Care. 2016;39(Suppl 1). Performed By: #### L LP8 #### [facility] [address] [place], [place] [address] Potassium [Moles/Vol] 3.7 mmol/L Normal 3.7-5.1 [facility] Comment on above: Result Comment: Refe rence ranges for this patient`s age group have not been established. These reference ranges reflect verified or established ranges for the adult population. Interpret ranges with caution using the clinical context and additional reference resources. Performed By: #### L LP8 #### [facility] [address] [place], [place] [address] Sodium [Moles/Vol] 134 mmol/L Low 136-144 [facility] Comment on above: Result Comment: Refe rence ranges for this patient`s age group have not been established. These reference ranges reflect verified or established ranges for the adult population. Interpret ranges with caution using the clinical context and additional reference resources. Performed By: #### L LP8 #### [facility] [address] [place], [place] [address] Urea nitrogen [Mass/Vol] 11 mg/dL Normal 5-18 [facility] Comment on above: Performed By: #### L LP8 #### [facility] [address] [place], [place] [address] Cult Urineon 07-19-2019 Cult Urine Test performed at [facility] ORGANISM: *Escherichia coli (ID: 1) >100,000 CFU/ml CLSI breakpoints for therapy of uncomplicated UTI due to E. coli, K. pneumoniae or P. mirabilis were applied and may be used to predict the activity of oral agents (cefdinir, cefpodoxime, cefuroxime, and cephalexin). Normal [facility] Comment on above: Performed By: #### C _URI #### [place] [id number] HCG, Total for ED Useon HCG Qn m[IU]/mL Normal < 5.0 [facility] Comment on above: Result Comment: Gema ents [...] result. Performed By: #### L EHCG #### [address] [address] Hemogramon 07-19-2019 Erythrocyte distribution width (RBC) [Ratio] 14.2 % Normal 11.5-15.0 [facility] Comment on above: Performed By: #### L CBC #### [address] [address] Hematocrit (Bld) [Volume fraction] 44.1 % Normal 36.0-46.0 [facility] Comment on above: Performed By: #### L CBC #### [address] [address] Hemoglobin (Bld) [Mass/Vol] 14.4 g/dL Normal 11.5-15.5 [facility] Comment on above: Performed By: #### L CBC #### [facility] [address] [place] [address] MCH (RBC) [Entitic mass] 29.6 pg Normal 26.0-34.0 [facility] Comment on above: Performed By: #### L CBC #### [facility] [address] [place] [address] MCHC (RBC) [Mass/Vol] 32.7 % Normal 30.5-36.0 [facility] Comment on above: Performed By: #### L CBC #### [place] [address] MCV (RBC) [Entitic vol] 90.7 fL Normal 80.0-100.0 [facility] Comment on above: Performed By: #### L CBC #### [place] [address] Platelet mean volume (Bld) [Entitic vol] 12.5 fL Normal 9.0-12.7 [facility] Comment on above: Performed By: #### L CBC #### [place] [address] Platelets (Bld) [#/Vol] 129 thou/cmm Low 150-400 [facility] Comment on above: Performed By: #### L CBC #### [place] [address] RBC (Bld) [#/Vol] 4.86 mil/cmm Normal 3.90-5.20 [facility] Comment on above: Performed By: #### L CBC #### [facility] [address] [place] [address] WBC (Bld) [#/Vol] 10.8 thou/cmm Normal 3.7-11.0 [facility] Comment on above: Performed By: #### L CBC #### [place] [address] Urinalysis Routineon 06-08-2 020 Appearance (U) 3+ (CLOUDY) Normal [facility] Comment on above: Performed By: #### L URIN #### [facility] [address] [place] [address] Bacteria LM.HPF (Urine sed) [#/Area] MODERATE Abnormal None [place] [employer] [facility] Comment on above: Performed By: #### L URIN #### [place] [address] Bilirubin Urine see below Normal Negative [place] [employer] [facility] Comment on above: Result Comment: Dete cted (Unable to confirm). Performed By: #### L URIN #### [place] [address] Color (U) YELLOW Normal [facility] Comment on above: Performed By: #### L URIN #### [place] [address] Ep Cells Urine 2-5 Normal 0-5 [facility] Comment on above: Performed By: #### L URIN #### [place] [address] Glucose Ql (U) Negative Normal Negative [facility] Comment on above: Performed By: #### L URIN #### [place] [address] Hemoglobin,Urine 2+ Abnormal Negative [facility] [employer] [facility] Comment on above: Performed By: #### L URIN #### [place] [address] Ketone Urine 3+ Abnormal Negative [facility] Comment on above: Performed By: #### L URIN #### [place] [address] Leukocytes Esterase 1+ Abnormal Negative [facility] Comment on above: Performed By: #### L URIN #### [place] [address] Mucus Threads FEW Normal None [facility] Comment on above: Performed By: #### L URIN #### [place] [address] Nitrites Urine Positive Abnormal Negative [place] [employer] [facility] Comment on above: Performed By: #### L URIN #### [facility] [address] [place] [address] pH (U) 6.0 [pH] Normal 5.0-8.0 [facility] Comment on above: Performed By: #### L URIN #### [facility] [address] [place] [address] Protein (U) [Mass/Vol] 3+ Abnormal Negative [facility] Comment on above: Performed By: #### L URIN #### [facility] [address] [place] [address] RBC LM.HPF (Urine sed) [#/Area] 7-12 Abnormal 0-3 [facility] Comment on above: Performed By: #### L URIN #### [facility] [address] [place] [address] Specific [place], Ur 1.020 Normal 1.005-1.030 [facility] Comment on above: Performed By: #### L URIN #### [facility] [address] [place] [address] Urobilinogen,Ur 2.0 EU/dL High 0.2-1.0 [facility] Comment on above: Performed By: #### L URIN #### [facility] [address] [place] [address] WBC LM.HPF (Urine sed) [#/Area] 21-35 Abnormal 0-5 [facility] Comment on above: Performed By: #### L URIN #### [place] [address] PROGRESSon 08-07-2017 [facility] NOTES Normal [facility] CHLAM/GC AMPLIFon 07-31-2017 CHLAMYDIA NUC. AMP Negative Normal Negative [facility] GONOCOCCUS NUC. AMP Negative Normal Negative [facility] Comment on above: Result Comment: PERF ORMED AT [facility] PROGRESSon 07-30-2017 [facility] NOTES Normal [facility] PROGRESSon 07-29-2017 [facility] NOTES Normal [facility] TRICH VAG BY NAAon 8 TRICH VAG BY SHYAM Negative Normal Negative [facility] Comment on above: Result Comment: [facility] Addendumon 07-24-2017 [facility] HIM CAC NOTES Normal [facility] FIBRONECTINon 07-25-19 18 FIBRONECTIN Negative Normal NEGATIVE [facility] Comment on above: Result Comment: NO F ETAL FIBRONECTIN DETECTED.Testing performed at [place] [address] Performed By: #### F FN ####[place] [address] PROGRESSon 07-24-2017 [facility] NOTES Normal [facility] STREP SCREEN GRP Bon 018 STREP SCREEN GRP B SPECIMEN DESCRIPTION VAGINAL SPECIMEN * Result Note: REC * CULTURE NO GROUP B BETA STREP ISOLATED * Result Note: Testing performed at [place] [address] * REPORT STATUS 07/26/2017 * Result Note: FINAL * Normal [facility] Comment on above: Performed By: #### O BSC ####[place] [address] CBCon 07-11-2017 Basophils/100 WBC Auto (Bld) 0 % Normal 0.0-2.0 [facility] Comment on above: Performed By: #### A CBC ####[place] [address] DTYPE AUTO DIFF RESULTS VERIFIED BY SCAN Normal [facility] Comment on above: Performed By: #### A CBC ####[place] [address] Eosinophils/100 leukocytes 1 % Normal 0.0-11.0 [facility] Comment on above: Performed By: #### A CBC ####[place] [address] Erythrocyte morphology 1+ Normal [facility] Comment on above: Result Comment: POLY CHROMIA1+ANISOCYTE Performed By: #### A CBC ####[place] [address] Lymphocytes/100 leukocytes 18 % Low 20.0-55.0 [facility] Comment on above: Performed By: #### A CBC ####[place] [address] Monocytes/100 leukocytes 10 % Normal 0.0-10.0 [facility] Comment on above: Performed By: #### A CBC ####[place] [address] Neutrophils/100 leukocytes 71 % Normal 37.0-75.0 [facility] Comment on above: Performed By: #### A CBC ####[place] [address] PLATELET COMMENT GIANT PLTS Normal [facility] Comment on above: Result Comment: ADEQ UATETesting performed at [place] [address] Performed By: #### A CBC ####[place] [address] WBC MORPHOLOGY <10% BANDS PRESENT Normal [facility] Comment on above: Performed By: #### A CBC ####[place] [address] Erythrocyte distribution width Auto Ratio (RBC) 14.6 % High 11.5-14.5 [facility] Comment on above: Performed By: #### A CBC ####[place] [address] Erythrocytes (RBC) 3.72 /cmm Low 4.0-5.4 [facility] Comment on above: Performed By: #### A CBC ####[place] [address] Hematocrit (HCT) 33.8 % Low 36.0-48.0 [facility] Comment on above: Performed By: #### A CBC ####[place] [address] Hemoglobin mass conc (Bld) 11.5 g/dL Low 12.0-16.0 [facility] Comment on above: Performed By: #### A CBC ####[place] [address] MCH 30.9 pg Normal 26.0-35.0 [facility] Comment on above: Performed By: #### A CBC ####[place] [address] MCHC mass conc (RBC) 34.0 g/dL Normal 27.0-37.0 [facility] Comment on above: Performed By: #### A CBC ####[place] [address] MCV 91.0 fL Normal 80.0-100.0 [facility] Comment on above: Performed By: #### A CBC ####[place] [address] Platelet mean volume (PMV) 10.2 fL Normal 7.4-11.0 [facility] Comment on above: Result Comment: Test ing performed at [place] [address] Performed By: #### A CBC ####[place] [address] Platelets 141 /cmm Normal 130.0-400.0 [facility] Comment on above: Performed By: #### A CBC ####[place] [address] WBC (Leukocytes) 7.8 /cmm Normal 3.6-13.0 [facility] Comment on above: Performed By: #### A CBC ####[place] [address] PROGRESSon 07-10-2017 [facility] NOTES Normal [facility] BMP FASTINGon 07-01-2017 Anion gap 11 mmol/L Normal 8-16 [facility] Comment on above: Performed By: #### A CBC, BMPF, MG ####[place] [address] BUN (urea nitrogen) 6 mg/dL Low 7-20 [facility] Comment on above: Performed By: #### A CBC, BMPF, MG ####[place] [address] Calcium 8.5 mg/dL Low 9.2-10.7 [facility] Comment on above: Performed By: #### A CBC, BMPF, MG ####[place] [address] Chloride 103 mmol/L Normal 98-107 [facility] Comment on above: Performed By: #### A CBC, BMPF, MG ####[place] [address] CO2 24 mmol/L Normal 22-30 [facility] Comment on above: Performed By: #### A CBC, BMPF, MG ####[place] [address] Creatinine 0.4 mg/dL Low 0.6-1.2 [facility] Comment on above: Performed By: #### A CBC, BMPF, MG ####[place] [address] eGFR (non-black) Unable to calculate GFR due to inappropriate age/gender/creatinin e value. Normal [facility] Comment on above: Result Comment: Test ing performed at [place] [address] Performed By: #### A CBC, BMPF, MG ####[place] [address] Glucose mass conc 129 mg/dL High 70-100 [facility] Comment on above: Result Comment: NORM AL <100 mg/dLPREDIABETES 101-126 mg/dLDIABETES 126 mg/dL or higher Performed By: #### A CBC, BMPF, MG ####[place] [address] Potassium molar conc 3.7 mmol/L Normal 3.5-5.1 [facility] Comment on above: Performed By: #### A CBC, BMPF, MG ####[place] [address] Sodium 138 mmol/L Normal 137-145 [facility] Comment on above: Performed By: #### A CBC, BMPF, MG ####[place] [address] CBCon 07-01-2017 ABSOLUTE BAS 0.0 X10 Normal [facility] Comment on above: Result Comment: Test ing performed at [place] [address] Performed By: #### A URNC ####[place] [address] ABSOLUTE EOS 0.00 X10 Normal [facility] Comment on above: Performed By: #### A URNC ####[place] [address] Basophils/100 WBC Auto (Bld) 0.3 % Normal 0.0-2.0 [facility] [facility] Comment on above: Performed By: #### A URNC ####[place] [address] DTYPE AUTO DIFF Normal [facility] Comment on above: Performed By: #### A URNC ####[place] [address] Eosinophils/100 leukocytes 0.2 % Normal 0.0-11.0 [facility] Comment on above: Performed By: #### A URNC ####[place] [address] Lymphocytes 1.20 X10 Normal [facility] Comment on above: Performed By: #### A URNC ####[place] [address] Lymphocytes/100 leukocytes 13.1 % Low 20.0-55.0 [facility] Comment on above: Performed By: #### A URNC ####[place] [address] Monocytes 0.8 X10 Normal [facility] Comment on above: Performed By: #### A URNC ####[place] [address] Monocytes/100 leukocytes 9.4 % Normal 0.0-10.0 [facility] Comment on above: Performed By: #### A URNC ####Testing performed at [place] [id number] Neutrophils 6.8 x10 Normal 1.0-7.0 [facility] Comment on above: Performed By: #### A URNC ####Testing performed at [place] [id number] Neutrophils/100 leukocytes 77.0 % High 37.0-75.0 [facility] Comment on above: Performed By: #### A URNC ####[place] [address] Erythrocyte distribution width Auto Ratio (RBC) 14.1 % Normal 11.5-14.5 [facility] Comment on above: Performed By: #### A URNC ####[place] [address] Erythrocytes (RBC) 3.35 /cmm Low 4.0-5.4 [facility] Comment on above: Performed By: #### A URNC ####[place] [address] Hematocrit (HCT) 30.6 % Low 36.0-48.0 [facility] Comment on above: Performed By: #### A URNC ####[place] [address] Hemoglobin mass conc (Bld) 10.5 g/dL Low 12.0-16.0 [facility] Comment on above: Performed By: #### A URNC ####Testing performed at [place] [id number] MCH 31.3 pg Normal 26.0-35.0 [facility] Comment on above: Performed By: #### A URNC ####Testing performed at [place] [id number] MCHC mass conc (RBC) 34.3 g/dL Normal 27.0-37.0 [facility] Comment on above: Performed By: #### A URNC ####[place] [address] MCV 91.4 fL Normal 80.0-100.0 [facility] Comment on above: Performed By: #### A URNC ####[place] [address] Platelet mean volume (PMV) 10.0 fL Normal 7.4-11.0 [facility] Comment on above: Result Comment: Test ing performed at [place] [address] Performed By: #### A URNC ####[place] [address] Platelets 134 /cmm Normal 130.0-400.0 [facility] Comment on above: Performed By: #### A URNC ####[place] [address] WBC (Leukocytes) 8.9 /cmm Normal 3.6-13.0 [facility] Comment on above: Performed By: #### A URNC ####[place] [address] MAGNESIUMon 07-01-2017 Magnesium 1.5 mg/dL Low 1.6-2.3 [facility] Comment on above: Result Comment: Test ing performed at [place] [address] Performed By: #### A CBC, BMPF, MG ####[place] [address] NURSING NOTEon 07-01-2017 [facility] NOTES Normal [facility] NOT[facility] Normal [facility] NOTES Normal [facility] NOT[facility] NOT[facility] Normal [facility] NOTES Normal [facility] RAPID TOX SCREEN,URINE WITH REFLEXon 07-01-2017 AMPHETAMINE Negative Normal NEGATIVE [facility] Comment on above: Result Comment: <500 ng/ml CUTOFF Performed By: #### A URNC ####[place] [address] BARBITURATES Negative Normal NEGATIVE [facility] Comment on above: Result Comment: <200 ng/ml CUTOFF Performed By: #### A URNC ####[place] [address] BUPRENORPHINE Negative Normal NEGATIVE [facility] Comment on above: Result Comment: <10 ng/ml CUTOFFTesting performed at [place] [address] Performed By: #### A URNC ####[place] [address] METHAMPHETAMINE Negative Normal NEGATIVE [facility] Comment on above: Result Comment: <500 ng/ml CUTOFF Performed By: #### A URNC ####[place] [address] OXYCODONE Negative Normal NEGATIVE [facility] Comment on above: Result Comment: <100 ng/ml CUTOFF Performed By: #### A URNC ####[place] [address] PROPOXYPHENE Negative Normal NEGATIVE [facility] Comment on above: Result Comment: <300 ng/ml CUTOFF Performed By: #### A URNC ####[place] [address] Urine, benzodiazepines presence Negative Normal NEGATIVE [facility] Comment on above: Result Comment: <150 ng/ml CUTOFF Performed By: #### A URNC ####[place] [address] Urine, cannabinoids presence Negative Normal NEGATIVE [facility] Comment on above: Result Comment: <50 ng/ml CUTOFF Performed By: #### A URNC ####[place] [address] Urine, cocaine presence Negative Normal NEGATIVE [facility] Comment on above: Result Comment: <150 ng/ml CUTOFF Performed By: #### A URNC ####[place] [address] Urine, methadone presence Negative Normal NEGATIVE [facility] Comment on above: Result Comment: <200 ng/ml CUTOFF Performed By: #### A URNC ####[place] [address] Urine, opiates presence Negative Normal NEGATIVE [facility] Comment on above: Result Comment: <100 ng/ml CUTOFF Performed By: #### A URNC ####[place] [address] Urine, phencyclidine presence Negative Normal NEGATIVE [facility] Comment on above: Result Comment: <25 ng/ml CUTOFF Performed By: #### A URNC ####[place] [address] Urine, tricyclic antidepressants Negative Normal NEGATIVE [facility] Comment on above: Result Comment: <300 ng/ml CUTOFF Performed By: #### A URNC ####[place] [address] CBCon 06-19-2017 Basophils/100 WBC Auto (Bld) 0 % Normal 0.0-2.0 [facility] Comment on above: Performed By: #### U HCGT, UMAC, UMIC ####[place] [address] DTYPE AUTO DIFF Normal [facility] Comment on above: Result Comment: AUTO DIFF RESULTS VERIFIED BY SCAN Performed By: #### U HCGT, UMAC, UMIC ####[place] [address] Eosinophils/100 leukocytes 1 % Normal 0.0-11.0 [facility] Comment on above: Performed By: #### U HCGT, UMAC, UMIC ####[place] [address] Erythrocyte morphology NORMAL Normal [facility] Comment on above: Performed By: #### U HCGT, UMAC, UMIC ####[place] [address] Lymphocytes/100 leukocytes 20 % Normal 20.0-55.0 [facility] Comment on above: Performed By: #### U HCGT, UMAC, UMIC ####[place] [address] Monocytes/100 leukocytes 9 % Normal 0.0-10.0 [facility] Comment on above: Performed By: #### U HCGT, UMAC, UMIC ####[place] [address] Neutrophils/100 leukocytes 70 % Normal 37.0-75.0 [facility] Comment on above: Performed By: #### U HCGT, UMAC, UMIC ####[place] [address] PLATELET COMMENT GIANT PLTS Normal [facility] Comment on above: Result Comment: ADEQ UATETesting performed at [place] [address] Performed By: #### U HCGT, UMAC, UMIC ####[place] [address] Erythrocyte distribution width Auto Ratio (RBC) 14.3 % Normal 11.5-14.5 [facility] Comment on above: Performed By: #### U HCGT, UMAC, UMIC ####[place] [address] Erythrocytes (RBC) 3.80 /cmm Low 4.0-5.4 [facility] Comment on above: Performed By: #### U HCGT, UMAC, UMIC ####[place] [address] Hematocrit (HCT) 34.8 % Low 36.0-48.0 [facility] Comment on above: Performed By: #### U HCGT, UMAC, UMIC ####[place] [address] Hemoglobin mass conc (Bld) 12.0 g/dL Normal 12.0-16.0 [facility] Comment on above: Performed By: #### U HCGT, UMAC, UMIC ####[place] [address] MCH 31.5 pg Normal 26.0-35.0 [facility] Comment on above: Performed By: #### U HCGT, UMAC, UMIC ####[place] [address] MCHC mass conc (RBC) 34.4 g/dL Normal 27.0-37.0 [facility] Comment on above: Performed By: #### U HCGT, UMAC, UMIC ####[place] [address] MCV 91.4 fL Normal 80.0-100.0 [facility] Comment on above: Performed By: #### U HCGT, UMAC, UMIC ####[place] [address] Platelet mean volume (PMV) 10.2 fL Normal 7.4-11.0 [facility] Comment on above: Result Comment: Test ing performed at [place] [address] Performed By: #### U HCGT, UMAC, UMIC ####[place] [address] Platelets 155 /cmm Normal 130.0-400.0 [facility] Comment on above: Performed By: #### U HCGT, UMAC, UMIC ####[place] [address] WBC (Leukocytes) 7.5 /cmm Normal 3.6-13.0 [facility] Comment on above: Performed By: #### U HCGT, UMAC, UMIC ####[place] [address] PROGRESSon 06-19-2017 [facility] NOTES Normal [facility] CBCon 06-03-2017 ABSOLUTE BAS 0.0 X10 Normal [facility] Comment on above: Result Comment: Test ing performed at [place] [address] Performed By: #### U HCGT, UMAC, UMIC ####Testing performed at [address] [address] ABSOLUTE EOS 0.10 X10 Normal [facility] Comment on above: Performed By: #### U HCGT, UMAC, UMIC ####Testing performed at [place] [id number] Basophils/100 WBC Auto (Bld) 0.3 % Normal 0.0-2.0 [facility] Comment on above: Performed By: #### U HCGT, UMAC, UMIC ####[place] [address] DTYPE AUTO DIFF Normal [facility] Comment on above: Performed By: #### U HCGT, UMAC, UMIC ####Testing performed at [place] [id number] Eosinophils/100 leukocytes 1.3 % Normal 0.0-11.0 [facility] Comment on above: Performed By: #### U HCGT, UMAC, UMIC ####Testing performed at [address] [address] Lymphocytes 1.60 X10 Normal [facility] Comment on above: Performed By: #### U HCGT, UMAC, UMIC ####Testing performed at [address] [address] Lymphocytes/100 leukocytes 19.9 % Low 20.0-55.0 [facility] Comment on above: Performed By: #### U HCGT, UMAC, UMIC ####Testing performed at [address] [address] Monocytes 0.5 X10 Normal [facility] Comment on above: Performed By: #### U HCGT, UMAC, UMIC ####Testing performed at [place] [id number] Monocytes/100 leukocytes 6.7 % Normal 0.0-10.0 [facility] Comment on above: Performed By: #### U HCGT, UMAC, UMIC ####[place] [address] Neutrophils 5.8 x10 Normal 1.0-7.0 [facility] Comment on above: Performed By: #### U HCGT, UMAC, UMIC ####Testing performed at [place] [id number] Neutrophils/100 leukocytes 71.8 % Normal 37.0-75.0 [facility] Comment on above: Performed By: #### U HCGT, UMAC, UMIC ####[place] [address] Erythrocyte distribution width Auto Ratio (RBC) 13.7 % Normal 11.5-14.5 [facility] Comment on above: Performed By: #### U HCGT, UMAC, UMIC ####[place] [address] Erythrocytes (RBC) 3.45 /cmm Low 4.0-5.4 [facility] Comment on above: Performed By: #### U HCGT, UMAC, UMIC ####Testing performed at [place] [id number] Hematocrit (HCT) 31.5 % Low 36.0-48.0 [facility] Comment on above: Performed By: #### U HCGT, UMAC, UMIC ####Testing performed at [place] [id number] Hemoglobin mass conc (Bld) 10.7 g/dL Low 12.0-16.0 [facility] Comment on above: Performed By: #### U HCGT, UMAC, UMIC ####Testing performed at [place] [id number] MCH 31.1 pg Normal 26.0-35.0 [facility] Comment on above: Performed By: #### U HCGT, UMAC, UMIC ####[place] [address] MCHC mass conc (RBC) 34.1 g/dL Normal 27.0-37.0 [facility] Comment on above: Performed By: #### U HCGT, UMAC, UMIC ####[place] [address] MCV 91.3 fL Normal 80.0-100.0 [facility] Comment on above: Performed By: #### U HCGT, UMAC, UMIC ####[place] [address] Platelet mean volume (PMV) 10.4 fL Normal 7.4-11.0 [facility] Comment on above: Performed By: #### U HCGT, UMAC, UMIC ####[place] [address] Platelets 149 /cmm Normal 130.0-400.0 [facility] Comment on above: Performed By: #### U HCGT, UMAC, UMIC ####[place] [address] WBC (Leukocytes) 8.1 /cmm Normal 3.6-13.0 [facility] Comment on above: Performed By: #### U HCGT, UMAC, UMIC ####[place] [address] GLUCOSE FASTINGon 06-03-2017 Glucose mass conc 125 mg/dL High 70-100 [facility] Comment on above: Result Comment: NORM AL <100 mg/dLPREDIABETES 101-126 mg/dLDIABETES 126 mg/dL or higherTesting performed at [place] [address] Performed By: #### U HCGT, UMAC, UMIC ####[place] [address] GLUCOSE POST LOADINGon 06-03 Glucose mass conc 123 mg/dL Normal 65-140 [facility] Comment on above: Result Comment: Test ing performed at [place] [address] Performed By: #### U HCGT, UMAC, UMIC ####[place] [address] PROGRESSon 06-03-2017 [facility] NOTES Normal [facility] NOT[facility] Normal [facility] Addendumon 05-01-2017 [facility] HIM CAC NOTES Normal [facility] PROGRESSon 05-01-2017 [facility] NOTES Normal [facility] SENDOUT TESTon 04-15-2017 SENDOUT TEST SPECIMEN SENT TO REFERENCE LAB FOR TESTING [facility] Comment on above: Result Comment: [id number] AFPTesting performed at [place] [address] Performed By: #### U HCGT, UMAC, UMIC ####[place] [address] PROGRESSon 04-08-2017 [facility] NOTES Normal [facility] CBCon 03-11-2017 ABSOLUTE BAS 0.0 X10 Normal [facility] Comment on above: Result Comment: Test ing performed at [place] [address] Performed By: #### U HCGT, UMAC, UMIC ####[place] [address] ABSOLUTE EOS 0.00 X10 Normal [facility] Comment on above: Performed By: #### U HCGT, UMAC, UMIC ####[place] [address] Basophils/100 WBC Auto (Bld) 0.2 % Normal 0.0-2.0 [facility] Comment on above: Performed By: #### U HCGT, UMAC, UMIC ####[place] [address] DTYPE AUTO DIFF Normal [facility] Comment on above: Performed By: #### U HCGT, UMAC, UMIC ####Testing performed at [address] [place] [address] Eosinophils/100 leukocytes 0.1 % Normal 0.0-11.0 [facility] Comment on above: Performed By: #### U HCGT, UMAC, UMIC ####Testing performed at [address] [address] Lymphocytes 0.50 X10 Normal [facility] Comment on above: Performed By: #### U HCGT, UMAC, UMIC ####Testing performed at [address] [address] Lymphocytes/100 leukocytes 9.1 % Low 20.0-55.0 [facility] Comment on above: Performed By: #### U HCGT, UMAC, UMIC ####Testing performed at [address] [address] Monocytes 0.4 X10 Normal [facility] Comment on above: Performed By: #### U HCGT, UMAC, UMIC ####Testing performed at [address] [address] Monocytes/100 leukocytes 7.0 % Normal 0.0-10.0 [facility] Comment on above: Performed By: #### U HCGT, UMAC, UMIC ####Testing performed at [address] [address] Neutrophils 4.8 x10 Normal 1.0-7.0 [facility] Comment on above: Performed By: #### U HCGT, UMAC, UMIC ####Testing performed at [address] [address] Neutrophils/100 leukocytes 83.6 % High 37.0-75.0 [facility] Comment on above: Performed By: #### U HCGT, UMAC, UMIC ####Testing performed at [address] [address] Erythrocyte distribution width Auto Ratio (RBC) 14.2 % Normal 11.5-14.5 [facility] Comment on above: Performed By: #### U HCGT, UMAC, UMIC ####[place] [address] Erythrocytes (RBC) 4.48 /cmm Normal 4.0-5.4 [facility] Comment on above: Performed By: #### U HCGT, UMAC, UMIC ####[place] [address] Hematocrit (HCT) 39.7 % Normal 36.0-48.0 [facility] Comment on above: Performed By: #### U HCGT, UMAC, UMIC ####[place] [address] Hemoglobin mass conc (Bld) 13.4 g/dL Normal 12.0-16.0 [facility] Comment on above: Performed By: #### U HCGT, UMAC, UMIC ####[place] [address] MCH 29.8 pg Normal 26.0-35.0 [facility] Comment on above: Performed By: #### U HCGT, UMAC, UMIC ####[place] [address] MCHC mass conc (RBC) 33.7 g/dL Normal 27.0-37.0 [facility] Comment on above: Performed By: #### U HCGT, UMAC, UMIC ####[place] [address] MCV 88.5 fL Normal 80.0-100.0 [facility] Comment on above: Performed By: #### U HCGT, UMAC, UMIC ####[place] [address] Platelet mean volume (PMV) 9.9 fL Normal 7.4-11.0 [facility] Comment on above: Performed By: #### U HCGT, UMAC, UMIC ####[place] [address] Platelets 146 /cmm Normal 130.0-400.0 [facility] Comment on above: Performed By: #### U HCGT, UMAC, UMIC ####Testing performed at [place] [id number] WBC (Leukocytes) 5.8 /cmm Normal 3.6-13.0 [facility] Comment on above: Performed By: #### U HCGT, UMAC, UMIC ####[place] [address] CMP FASTINGon 03-11-2017 A:G RATIO 1.3 RATIO Normal 1.3-2.2 [facility] Comment on above: Performed By: #### U HCGT, UMAC, UMIC ####[place] [address] Alanine aminotransferase (ALT) 46 U/L Normal 9-52 [facility] Comment on above: Performed By: #### U HCGT, UMAC, UMIC ####[place] [address] Albumin 4.1 G/dl Normal 3.7-5.6 [facility] Comment on above: Performed By: #### U HCGT, UMAC, UMIC ####[place] [address] Alkaline phosphatase (ALP) 64 U/L Low 70-230 [facility] Comment on above: Performed By: #### U HCGT, UMAC, UMIC ####[place] [address] Aspartate aminotransferase (AST) 26 U/L Normal 10-30 [facility] Comment on above: Performed By: #### U HCGT, UMAC, UMIC ####[place] [address] Bilirubin (total) 0.7 mg/dL Normal 0.2-1.3 [facility] Comment on above: Performed By: #### U HCGT, UMAC, UMIC ####[place] [address] BUN (urea nitrogen) 9 mg/dL Normal 7-20 [facility] Comment on above: Performed By: #### U HCGT, UMAC, UMIC ####[place] [address] Calcium 9.4 mg/dL Normal 9.2-10.7 [facility] Comment on above: Performed By: #### U HCGT, UMAC, UMIC ####[place] [address] Chloride 104 mmol/L Normal 98-107 [facility] Comment on above: Performed By: #### U HCGT, UMAC, UMIC ####[place] [address] CO2 21 mmol/L Low 22-30 [facility] Comment on above: Performed By: #### U HCGT, UMAC, UMIC ####[place] [address] Creatinine 0.6 mg/dL Normal 0.6-1.2 [facility] Comment on above: Performed By: #### U HCGT, UMAC, UMIC ####[place] [address] eGFR (non-black) Unable to calculate GFR due to inappropriate age/gender/creatinin e value. Normal [facility] Comment on above: Result Comment: Test ing performed at [place] [address] Performed By: #### U HCGT, UMAC, UMIC ####[place] [address] Glucose mass conc 80 mg/dL Normal 70-100 [facility] Comment on above: Result Comment: NORM AL <100 mg/dLPREDIABETES 101-126 mg/dLDIABETES 126 mg/dL or higher Performed By: #### U HCGT, UMAC, UMIC ####[place] [address] Potassium molar conc 3.7 mmol/L Normal 3.5-5.1 [facility] Comment on above: Performed By: #### U HCGT, UMAC, UMIC ####[place] [address] Protein 7.2 g/dL Normal 6.3-8.6 [facility] Comment on above: Performed By: #### U HCGT, UMAC, UMIC ####[place] [address] Sodium 138 mmol/L Normal 137-145 [facility] Comment on above: Performed By: #### U HCGT, UMAC, UMIC ####[place] [address] ED NOTEon 03-11-2017 [facility] NOTES Normal [facility] NOT[facility] Normal [facility] LIPASE,SERUMon 03-11-2017 LIPASE,SERUM 60 U/L Normal 23-300 [facility] Comment on above: Result Comment: Test ing performed at [place] [address] Performed By: #### U HCGT, UMAC, UMIC ####[place] [address] ED NOTEon 03-10-2017 [facility] NOTES Normal [facility] ED PROVIDERon 03-10-2017 [facility] NOTES Normal [facility] PROGRESSon 02-27-2017 [facility] NOTES Normal [facility] SENDOUT TESTon 02-27-2017 SENDOUT TEST SPECIMEN SENT TO REFERENCE LAB FOR TESTING Normal [facility] Comment on above: Result Comment: SENT TO OUTSIDE LAB NATERATesting performed at [place] [address] Performed By: #### U HCGT, UMAC, UMIC ####[place] [address] CHLAM/GC AMPLIFon 01-17-2017 CHLAMYDIA NUC. AMP Negative Normal Negative [facility] GONOCOCCUS NUC. AMP Negative Normal Negative [facility] Comment on above: Result Comment: PERF ORMED AT [facility] HBSAG SCREENon 01-16-2017 BSA (Body Surface Area) Negative Normal Negative [facility] Comment on above: Result Comment: PERF ORMED AT [facility] Performed By: #### U HCGT, UMAC, UMIC ####[place] [address] RPRon 01-16-2017 Reagin antibody presence NONREACTIVE Normal NONREACTIVE [facility] Comment on above: Result Comment: Test ing performed at [place] [address] Performed By: #### U HCGT, UMAC, UMIC ####[place] [address] RUBELLA SCREENon 01-16-2017 RUBELLA SCREEN Positive Normal POSITIVE [facility] Comment on above: Result Comment: POSI TIVE RESULT INDICATES PRESUMED IMMUNITYTesting performed at [place] [address] Performed By: #### U HCGT, UMAC, UMIC ####[place] [address] ABO/RH(D)on 01-15-2017 ABO/RH(D) ABO/RH(D) A NEGATIVE Testing performed at [address] Comment on above: Performed By: #### U HCGT, UMAC, UMIC ####[place] [address] ANTIBODY SCREENon 01-15-2017 ANTIBODY SCREEN ANTIBODY SCREEN NEGATIVE WORKUP EXPIRES 01/18/2017 Testing performed at [address] Comment on above: Performed By: #### U HCGT, UMAC, UMIC ####[place] [address] CBCon 01-15-2017 ABSOLUTE BAS 0.0 X10 [facility] Comment on above: Result Comment: Test ing performed at [place] [address] Performed By: #### A CBC, GHIV, RPR, RUBL ####[place] [address]#### LHBSAG ####Testing performed at [facility] [id number] [place] [facility] [facility] [place] [address] ABSOLUTE EOS 0.00 X10 Normal [facility] Comment on above: Performed By: #### A CBC, GHIV, RPR, RUBL ####Testing performed at [address] [address]#### LHBSAG ####Testing performed at [facility], [id number] [facility] [place] [address] Basophils/100 WBC Auto (Bld) 0.4 % Normal 0.0-2.0 [facility] Comment on above: Performed By: #### A CBC, GHIV, RPR, RUBL ####[place] [address]#### LHBSAG ####Testing performed at [address] [facility] [place] [address] DTYPE AUTO DIFF [facility] Comment on above: Performed By: #### A CBC, GHIV, RPR, RUBL ####[place] [address]#### LHBSAG ####Testing performed at [address] [place] [address] Eosinophils/100 leukocytes 0.6 % Normal 0.0-11.0 [facility] Comment on above: Performed By: #### A CBC, GHIV, RPR, RUBL ####[place] [address]#### LHBSAG ####Testing performed [address] [facility] [place] [address] Lymphocytes 1.60 X10 Normal [facility] Comment on above: Performed By: #### A CBC, GHIV, RPR, RUBL ####Testing performed at [address] [address]#### LHBSAG ####Testing performed at [facility], [id number] [place] [address] Lymphocytes/100 leukocytes 23.8 % Normal 20.0-55.0 [facility] Comment on above: Performed By: #### A CBC, GHIV, RPR, RUBL ####[place] [address]#### LHBSAG ####Testing performed at [facility], [id number] [place] [address] Monocytes 0.5 X10 Normal [facility] Comment on above: Performed By: #### A CBC, GHIV, RPR, RUBL ####[place] [address]#### LHBSAG ####Testing performed at [facility], [id number] [place] [address] Monocytes/100 leukocytes 7.1 % Normal 0.0-10.0 [facility] Comment on above: Performed By: #### A CBC, GHIV, RPR, RUBL ####[place] [address]#### LHBSAG ####Testing performed at [facility], [id number] [place] [address] Neutrophils 4.6 x10 Normal 1.0-7.0 [facility] Comment on above: Performed By: #### A CBC, GHIV, RPR, RUBL ####[place] [address]#### LHBSAG ####Testing performed at [facility], [id number] [place] [address] Neutrophils/100 leukocytes 68.1 % Normal 37.0-75.0 [facility] Comment on above: Performed By: #### A CBC, GHIV, RPR, RUBL ####[place] [address]#### LHBSAG ####Testing performed at [facility], [id number] [place] [address] Erythrocyte distribution width Auto Ratio (RBC) 13.9 % Normal 11.5-14.5 [facility] Comment on above: Performed By: #### A CBC, GHIV, RPR, RUBL ####[place] [address]#### LHBSAG ####Testing performed at [address] [address] Erythrocytes (RBC) 4.69 /cmm Normal 4.0-5.4 [facility] Comment on above: Performed By: #### A CBC, GHIV, RPR, RUBL ####[place] [address]#### LHBSAG ####Testing performed at [address] [address] Hematocrit (HCT) 42.0 % Normal 36.0-48.0 [facility] Comment on above: Performed By: #### A CBC, GHIV, RPR, RUBL ####[place] [address]#### LHBSAG ####Testing performed at [address] [address] Hemoglobin mass conc (Bld) 14.1 g/dL Normal 12.0-16.0 [facility] Comment on above: Performed By: #### A CBC, GHIV, RPR, RUBL ####[place] [address]#### LHBSAG ####Testing performed at [address] [address] MCH 30.0 pg Normal 26.0-35.0 [facility] Comment on above: Performed By: #### A CBC, GHIV, RPR, RUBL ####[place] [address]#### LHBSAG ####Testing performed at [facility], [address] [place] [address] MCHC mass conc (RBC) 33.5 g/dL Normal 27.0-37.0 [facility] Comment on above: Performed By: #### A CBC, GHIV, RPR, RUBL ####[place] [address]#### LHBSAG ####Testing performed at [address] [place] [address] MCV 89.6 fL Normal 80.0-100.0 [facility] Comment on above: Performed By: #### A CBC, GHIV, RPR, RUBL ####[place] [address]#### LHBSAG ####Testing performed at [address] [place] [address] Platelet mean volume (PMV) 10.6 fL Normal 7.4-11.0 [facility] Comment on above: Performed By: #### A CBC, GHIV, RPR, RUBL ####[place] [address]#### LHBSAG ####Testing performed at [address] [address] Platelets 189 /cmm Normal 130.0-400.0 [facility] Comment on above: Performed By: #### A CBC, GHIV, RPR, RUBL ####[place] [address]#### LHBSAG ####Testing performed at [address] [address] WBC (Leukocytes) 6.8 /cmm Normal 3.6-13.0 [facility] Comment on above: Performed By: #### A CBC, GHIV, RPR, RUBL ####[place] [address]#### LHBSAG ####Testing performed at [facility], [id number] [place] [address] HIV 1,2 ABon 01-15-2017 HIV 1,2 NONREACTIVE Normal NONREACTIVE [facility] Comment on above: Result Comment: Test ing performed at [place] [address] Performed By: #### A CBC, GHIV, RPR, RUBL ####[place] [address]#### LHBSAG ####Testing performed at [facility], [id number] [place] [address] PROGRESSon 01-15-2017 [facility] NOTES Normal [facility] RAPID TOX SCREEN,URINE WITH REFLEXon 01-15-2017 AMPHETAMINE Negative Normal NEGATIVE [facility] Comment on above: Result Comment: <500 ng/ml CUTOFF Performed By: #### U HCGT, UMAC, UMIC ####[place] [address] BARBITURATES Negative Normal NEGATIVE [facility] Comment on above: Result Comment: <200 ng/ml CUTOFF Performed By: #### U HCGT, UMAC, UMIC ####[place] [address] BUPRENORPHINE Negative Normal NEGATIVE [facility] Comment on above: Result Comment: <10 ng/ml CUTOFFTesting performed at [place] [address] Performed By: #### U HCGT, UMAC, UMIC ####[place] [address] METHAMPHETAMINE Negative Normal NEGATIVE [facility] Comment on above: Result Comment: <500 ng/ml CUTOFF Performed By: #### U HCGT, UMAC, UMIC ####[place] [address] OXYCODONE Negative Normal NEGATIVE [facility] Comment on above: Result Comment: <100 ng/ml CUTOFF Performed By: #### U HCGT, UMAC, UMIC ####Testing performed at [place] [id number] PROPOXYPHENE Negative Normal NEGATIVE [facility] Comment on above: Result Comment: <300 ng/ml CUTOFF Performed By: #### U HCGT, UMAC, UMIC ####Testing performed at [address] [address] Urine, benzodiazepines presence Negative Normal NEGATIVE [facility] Comment on above: Result Comment: <150 ng/ml CUTOFF Performed By: #### U HCGT, UMAC, UMIC ####Testing performed at [place] [id number] Urine, cannabinoids presence Negative Normal NEGATIVE [facility] Comment on above: Result Comment: <50 ng/ml CUTOFF Performed By: #### U HCGT, UMAC, UMIC ####[place] [address] Urine, cocaine presence Negative Normal NEGATIVE [facility] Comment on above: Result Comment: <150 ng/ml CUTOFF Performed By: #### U HCGT, UMAC, UMIC ####Testing performed at [address] [address] Urine, methadone presence Negative Normal NEGATIVE [facility] Comment on above: Result Comment: <200 ng/ml CUTOFF Performed By: #### U HCGT, UMAC, UMIC ####Testing performed at [place] [id number] Urine, opiates presence Negative Normal NEGATIVE [facility] Comment on above: Result Comment: <100 ng/ml CUTOFF Performed By: #### U HCGT, UMAC, UMIC ####Testing performed at [place] [id number] Urine, phencyclidine presence Negative Normal NEGATIVE [facility] Comment on above: Result Comment: <25 ng/ml CUTOFF Performed By: #### U HCGT, UMAC, UMIC ####Testing performed at [place] [id number] Urine, tricyclic antidepressants Negative Normal NEGATIVE [facility] Comment on above: Result Comment: <300 ng/ml CUTOFF Performed By: #### U HCGT, UMAC, UMIC ####[place] [address] URINE CULTUREon 01-15-2017 Urine culture, bacteria SPECIMEN DESCRIP TION URINE CLEAN CATCHUA DIPSTICK LEUKOCYTE NEGATIVE * Result Note: NITRITE NEGATIVE *CULTURE NO GROWTH 2 DAYS * Result Note: Testing performed at [place] [address] *REPORT STATUS 01/17/2017 * Result Note: FINAL * Normal [facility] Comment on above: Performed By: #### U HCGT, UMAC, UMIC ####[place] [address] ED NOTEon 12-31-2016 [facility] NOTES Normal [facility] ED PROVIDERon 12-30-2016 [facility] NOTES Normal [facility] URINE CULTUREon 12-30-2016 Urine culture, bacteria SPECIMEN DESCRIP TION URINE - OTHERUA DIPSTICK LEUKOCYTE POSITIVE * Result Note: NITRITE NEGATIVE *CULTURE NO PATHOGENS ISOLATED * Result Note: Testing performed at [place] [address] *REPORT STATUS 01/01/2017 * Result Note: FINAL * Normal [facility] Comment on above: Performed By: #### A URNC ####[place] [address] URINE HCG QUALon 12-30-2016 HCG.beta subunit ( test) Ql (U) Positive Normal [facility] Comment on above: Result Comment: Test ing performed at [place] [address] Performed By: #### U HCGT, UMAC, UMIC ####[place] [address] URINE MACROSCOPICon 12-31-19 17 Bilirubin Ql (U) Negative Normal NEGATIVE [facility] Comment on above: Performed By: #### U HCGT, UMAC, UMIC ####[place] [address] URINE HEMOGLOBIN Negative Normal NEGATIVE [facility] Comment on above: Performed By: #### U HCGT, UMAC, UMIC ####[place] [address] URINE KETONE TRACE Abnormal NEGATIVE [facility] Comment on above: Performed By: #### U HCGT, UMAC, UMIC ####[place] [address] URINE LEUKOTEST TRACE Abnormal NEGATIVE [facility] Comment on above: Result Comment: Test ing performed at [place] [address] Performed By: #### U HCGT, UMAC, UMIC ####[place] [address] URINE NITRATES Negative Normal NEGATIVE [facility] Comment on above: Performed By: #### U HCGT, UMAC, UMIC ####[place] [address] URINE SPEC GRAVITY 1.025 Normal 1.010-1.025 [facility] Comment on above: Performed By: #### U HCGT, UMAC, UMIC ####[place] [address] URINE TOTAL PROTEIN Negative Normal NEGATIVE [facility] Comment on above: Performed By: #### U HCGT, UMAC, UMIC ####[place] [address] Urine, clarity CLEAR Normal CLEAR [facility] Comment on above: Performed By: #### U HCGT, UMAC, UMIC ####[place] [address] Urine, color YELLOW Normal YELLOW [facility] Comment on above: Performed By: #### U HCGT, UMAC, UMIC ####[place] [address] Urine, glucose presence Negative Normal NEGATIVE [facility] Comment on above: Performed By: #### U HCGT, UMAC, UMIC ####[place] [address] Urine, pH 5.5 [pH] Normal 5.0-7.0 [facility] Comment on above: Performed By: #### U HCGT, UMAC, UMIC ####[place] [address] Urine, urobilinogen 0.2 mg/dl Normal 0.2-1.0 [facility] Comment on above: Performed By: #### U HCGT, UMAC, UMIC ####[place] [address] URINE MICROSCOPICon 12-31-19 17 CRYSTAL NONE Normal NONE [facility] Comment on above: Performed By: #### U HCGT, UMAC, UMIC ####[place] [address] URINE COMMENT REFLEX CULTURE PER ESTABLISHED CRITERIA. Normal [facility] Comment on above: Result Comment: Test ing performed at [place] [address] Performed By: #### U HCGT, UMAC, UMIC ####[place] [address] URINE WBC'S 1 TO 5 Normal NEGATIVE [facility] Comment on above: Performed By: #### U HCGT, UMAC, UMIC ####[place] [address] Urine, bacteria in sediment 1+ Abnormal NEGATIVE [facility] Comment on above: Performed By: #### U HCGT, UMAC, UMIC ####[place] [address] Urine, casts in sediment NONE Normal NONE [facility] Comment on above: Performed By: #### U HCGT, UMAC, UMIC ####[place] [address] Urine, epithelial cells in sediment 1 TO 5 Normal [facility] Comment on above: Performed By: #### U HCGT, UMAC, UMIC ####[place] [address] Urine, erythrocytes Negative Normal NEGATIVE [facility] Comment on above: Performed By: #### U HCGT, UMAC, UMIC ####[place] [address] Urine, mucus presence in sediment Negative Normal NEGATIVE [facility] Comment on above: Performed By: #### U HCGT, UMAC, UMIC ####[place] [address] ED NOTEon 09-13-2016 [facility] NOTES Normal [facility] Vital Signs Date Time Vital Sign Value Performing Clinician Facility 09-09-2024 22:20-0400 Body temperature 98.71 [degF] Rio Kelly DO Work Phone: [facility] 09-09-2024 22:20-0400 Diastolic blood pressure 78 mm[Hg] Rio Kelly DO Work Phone: [facility] 09-09-2024 22:20-0400 Heart rate 81 /min Rio Kelly DO Work Phone: [facility] 09-09-2024 22:20-0400 Respiratory rate 16 /min Rio Kelly DO Work Phone: [facility] 09-09-2024 22:20-0400 Systolic blood pressure 124 mm[Hg] Rio Kelly DO Work Phone: [facility] 09-09-2024 19:44-0400 Body height 160 cm Rio Kelly DO Work Phone: [facility] 09-09-2024 19:44-0400 Body mass index (BMI) [Ratio] 34.03 kg/m2 Rio Kelly DO Work Phone: [facility] 09-09-2024 19:44-0400 Body weight 87.14 kg Rio Kelly DO Work Phone: [facility] 09-09-2024 19:44-0400 SaO2% (BldA) [Mass fraction] 96 % iRo Kelly DO Work Phone: [facility] 09-09-2024 11:48-0400 Diastolic blood pressure 71 mm[Hg] Rachell Queden FLESHING MACHINE OPERATOR-C Work Phone: [facility] 09-09-2024 11:48-0400 Heart rate 85 /min Rachell Queden FLESHING MACHINE OPERATOR-C Work Phone: [facility] 09-09-2024 11:48-0400 Systolic blood pressure 123 mm[Hg] Rachell Queden FLESHING MACHINE OPERATOR-C Work Phone: [facility] 09-09-2024 11:46-0400 Body temperature 97.3 [degF] Rachell Queden FLESHING MACHINE OPERATOR-C Work Phone: [facility] 09-09-2024 11:46-0400 Respiratory rate 16 /min Rachell Queden FLESHING MACHINE OPERATOR-C Work Phone: [facility] 09-09-2024 11:46-0400 SaO2% (BldA) [Mass fraction] 96 % Rachell Queden FLESHING MACHINE OPERATOR-C Work Phone: [facility] 09-09-2024 11:20-0400 Body height 160.02 cm Rachell Queden FLESHING MACHINE OPERATOR-C Work Phone: [facility] 09-09-2024 11:20-0400 Body mass index (BMI) [Ratio] 33.7 kg/m2 Rachell Queden FLESHING MACHINE OPERATOR-C Work Phone: [facility] 09-09-2024 11:20-0400 Body weight 86.5 kg Rachell Queden FLESHING MACHINE OPERATOR-C Work Phone: [facility] 09-08-2024 09:58-0400 Body mass index (BMI) [Ratio] 33.66 kg/m2 Gino Valero STEAM FINISHER.CNM Work Phone: [facility] 09-08-2024 09:58-0400 Body weight 86.18 kg Gino Valero STEAM FINISHER.CNM Work Phone: [facility] 09-08-2024 09:58-0400 Diastolic blood pressure 77 mm[Hg] Gino Valero STEAM FINISHER.CNM Work Phone: [facility] Comment on above: BP machine 09-08-2024 09:58-0400 Systolic blood pressure 119 mm[Hg] Gino Valero STEAM FINISHER.CNM Work Phone: [facility] Comment on above: BP machine 09-08-2024 00:42-0400 Heart rate 87 /min Rachell Queden FLESHING MACHINE OPERATOR-C Work Phone: [facility] 09-08-2024 00:42-0400 SaO2% (BldA) [Mass fraction] 96 % Rachell Queden FLESHING MACHINE OPERATOR-C Work Phone: [facility] 09-08-2024 00:17-0400 Body height 160.02 cm Rachell Queden FLESHING MACHINE OPERATOR-C Work Phone: [facility] 09-08-2024 00:17-0400 Body mass index (BMI) [Ratio] 33.9 kg/m2 Rachell Queden FLESHING MACHINE OPERATOR-C Work Phone: [facility] 09-08-2024 00:17-0400 Body weight 86.9 kg Rachell Queden FLESHING MACHINE OPERATOR-C Work Phone: [facility] 09-07-2024 23:10-0400 Body temperature 97.9 [degF] Rachell Queden FLESHING MACHINE OPERATOR-C Work Phone: [facility] 09-07-2024 23:10-0400 Respiratory rate 16 /min Rachell Queden FLESHING MACHINE OPERATOR-C Work Phone: [facility] 09-07-2024 23:07-0400 Diastolic blood pressure 67 mm[Hg] Rachell Queden FLESHING MACHINE OPERATOR-C Work Phone: [facility] 09-07-2024 23:07-0400 Systolic blood pressure 120 mm[Hg] Rachell Queden FLESHING MACHINE OPERATOR-C Work Phone: [facility] 09-07-2024 14:54-0400 Body mass index (BMI) [Ratio] 33.3 kg/m2 Yamila Ballard MD Work Phone: [facility] 09-07-2024 14:54-0400 Body weight 85.28 kg Yamila Ballard MD Work Phone: [facility] 09-07-2024 14:54-0400 Diastolic blood pressure 66 mm[Hg] Yamila Ballard MD Work Phone: [facility] 09-07-2024 14:54-0400 Systolic blood pressure 110 mm[Hg] Yamila Ballard MD Work Phone: [facility] 08-24-2024 14:31-0400 Diastolic blood pressure 63 mm[Hg] Treatment 2 [facility] 08-24-2024 14:31-0400 Heart rate 83 /min Treatment 2 [facility] 08-24-2024 14:31-0400 Respiratory rate 16 /min Treatment 2 [facility] 08-24-2024 14:31-0400 SaO2% (BldA) [Mass fraction] 100 % Treatment 2 [facility] 08-24-2024 14:31-0400 Systolic blood pressure 105 mm[Hg] Treatment 2 [facility] 08-24-2024 13:46-0400 Body temperature 98.71 [degF] Treatment 2 [facility] 08-24-2024 10:45-0400 Body mass index (BMI) [Ratio] 32.24 kg/m2 Prabhu Ortez MD Work Phone: [facility] 08-24-2024 10:45-0400 Body weight 82.56 kg Prabhu Ortez MD Work Phone: [facility] 08-24-2024 10:45-0400 Diastolic blood pressure 60 mm[Hg] Prabhu Ortez MD Work Phone: [facility] 08-24-2024 10:45-0400 Systolic blood pressure 110 mm[Hg] Prabhu Ortez MD Work Phone: [facility] 08-20-2024 15:21-0400 Diastolic blood pressure 71 mm[Hg] Treatment 2 [facility] 08-20-2024 15:21-0400 Heart rate 89 /min Treatment 2 [facility] 08-20-2024 15:21-0400 Respiratory rate 18 /min Treatment 2 [facility] 08-20-2024 15:21-0400 SaO2% (BldA) [Mass fraction] 98 % Treatment 2 [facility] 08-20-2024 15:21-0400 Systolic blood pressure 107 mm[Hg] Treatment 2 [facility] 08-17-2024 15:15-0400 Body temperature 98.01 [degF] Treatment 1 [facility] 08-17-2024 15:15-0400 Diastolic blood pressure 67 mm[Hg] Treatment 1 [facility] 08-17-2024 15:15-0400 Heart rate 95 /min Treatment 1 [facility] 08-17-2024 15:15-0400 Respiratory rate 16 /min Treatment 1 [facility] 08-17-2024 15:15-0400 SaO2% (BldA) [Mass fraction] 96 % Treatment 1 [facility] 08-17-2024 15:15-0400 Systolic blood pressure 117 mm[Hg] Treatment 1 [facility] 08-12-2024 15:13-0400 Diastolic blood pressure 62 mm[Hg] Treatment 2 [facility] 08-12-2024 15:13-0400 Heart rate 82 /min Treatment 2 [facility] 08-12-2024 15:13-0400 Respiratory rate 16 /min Treatment 2 [facility] 08-12-2024 15:13-0400 SaO2% (BldA) [Mass fraction] 100 % Treatment 2 [facility] 08-12-2024 15:13-0400 Systolic blood pressure 101 mm[Hg] Treatment 2 [facility] 08-12-2024 14:31-0400 Body temperature 98.01 [degF] Treatment 2 [facility] 08-10-2024 11:27-0400 Body mass index (BMI) [Ratio] 31.53 kg/m2 Prabhu Ortez MD Work Phone: [facility] 08-10-2024 11:27-0400 Body weight 80.74 kg Prabhu Ortez MD Work Phone: [facility] 08-10-2024 11:27-0400 Diastolic blood pressure 60 mm[Hg] Prabhu Ortez MD Work Phone: [facility] 08-10-2024 11:27-0400 Systolic blood pressure 112 mm[Hg] Prabhu Ortez MD Work Phone: [facility] 08-03-2024 15:49-0400 Diastolic blood pressure 61 mm[Hg] Rachell Queden FLESHING MACHINE OPERATOR-C Work Phone: [facility] 08-03-2024 15:49-0400 Heart rate 85 /min Rachell Queden FLESHING MACHINE OPERATOR-C Work Phone: [facility] 08-03-2024 15:49-0400 Systolic blood pressure 109 mm[Hg] Rachell Queden FLESHING MACHINE OPERATOR-C Work Phone: [facility] 08-03-2024 13:42-0400 Body height 160.02 cm Rachell Queden FLESHING MACHINE OPERATOR-C Work Phone: [facility] 08-03-2024 13:42-0400 Body mass index (BMI) [Ratio] 31.3 kg/m2 Rachell Queden FLESHING MACHINE OPERATOR-C Work Phone: [facility] 08-03-2024 13:42-0400 Body weight 80.19 kg Rachell Queden FLESHING MACHINE OPERATOR-C Work Phone: [facility] 08-03-2024 13:36-0400 Body temperature 98.1 [degF] Rachell Queden FLESHING MACHINE OPERATOR-C Work Phone: [facility] 08-03-2024 13:36-0400 Respiratory rate 14 /min Rachell Queden FLESHING MACHINE OPERATOR-C Work Phone: [facility] 08-03-2024 13:36-0400 SaO2% (BldA) [Mass fraction] 100 % Rachell Queden FLESHING MACHINE OPERATOR-C Work Phone: [facility] 08-03-2024 11:55-0400 Body height 160 cm Ramiro Hugo MD Work Phone: [facility] 08-03-2024 11:55-0400 Body mass index (BMI) [Ratio] 31.18 kg/m2 Ramiro Hugo MD Work Phone: [facility] 08-03-2024 11:55-0400 Body weight 79.83 kg Ramiro Hugo MD Work Phone: [facility] 08-03-2024 11:55-0400 Diastolic blood pressure 70 mm[Hg] Ramiro Hugo MD Work Phone: [facility] 08-03-2024 11:55-0400 Heart rate 92 /min Ramiro Hugo MD Work Phone: [facility] 08-03-2024 11:55-0400 SaO2% (BldA) [Mass fraction] 98 % Ramiro Hugo MD Work Phone: [facility] 08-03-2024 11:55-0400 Systolic blood pressure 104 mm[Hg] Ramiro Hugo MD Work Phone: [facility] 07-27-2024 13:21-0400 Body mass index (BMI) [Ratio] 31.11 kg/m2 Yamila Ballard MD Work Phone: [facility] 07-27-2024 13:21-0400 Body weight 79.65 kg Yamila Ballard MD Work Phone: [facility] 07-27-2024 13:21-0400 Diastolic blood pressure 66 mm[Hg] Yamila Ballard MD Work Phone: [facility] 07-27-2024 13:21-0400 Systolic blood pressure 118 mm[Hg] Yamila Ballard MD Work Phone: [facility] 06-01-2024 09:46-0400 Body mass index (BMI) [Ratio] 26.22 kg/m2 Jaquelin Hi APRN.CNM Work Phone: [facility] [facility] 06-01-2024 09:46-0400 Body weight 67.13 kg Jaquelin Hi STEAM FINISHER.CNM Work Phone: [facility] 06-01-2024 09:46-0400 Diastolic blood pressure 60 mm[Hg] Jaquelin Hi STEAM FINISHER.CNM Work Phone: [facility] 06-01-2024 09:46-0400 Systolic blood pressure 106 mm[Hg] Jaquelin Hi STEAM FINISHER.CNM Work Phone: [facility] 05-04-2024 14:30-0400 Body mass index (BMI) [Ratio] 24.27 kg/m2 Jaquelin Hi STEAM FINISHER.CNM Work Phone: [facility] 05-04-2024 14:30-0400 Body weight 62.14 kg Jaquelin Hi STEAM FINISHER.CNM Work Phone: [facility] 05-04-2024 14:30-0400 Diastolic blood pressure 60 mm[Hg] Jaquelin Hi STEAM FINISHER.CNM Work Phone: [facility] 05-04-2024 14:30-0400 Systolic blood pressure 108 mm[Hg] Jaquelin Hi STEAM FINISHER.CNM Work Phone: [facility] 04-07-2024 14:47-0500 Body mass index (BMI) [Ratio] 23.03 kg/m2 Jaquelin Hi STEAM FINISHER.CNM Work Phone: [facility] 04-07-2024 14:47-0500 Body weight 58.97 kg Jaquelin Hi STEAM FINISHER.CNM Work Phone: [facility] 04-07-2024 14:47-0500 Diastolic blood pressure 62 mm[Hg] Jaquelin Hi STEAM FINISHER.CNM Work Phone: [facility] 04-07-2024 14:47-0500 Systolic blood pressure 116 mm[Hg] Jaquelin Hi STEAM FINISHER.CNM Work Phone: [facility] 03-09-2024 13:14-0500 Body height 160 cm Jaquelin Hi STEAM FINISHER.CNM Work Phone: [facility] 03-09-2024 13:14-0500 Body mass index (BMI) [Ratio] 23.03 kg/m2 Jaquelin Hi APRN.CNM Work Phone: [facility] 03-09-2024 13:14-0500 Body weight 58.97 kg Jaquelin Hi APRN.CNM Work Phone: [facility] 03-09-2024 13:14-0500 Diastolic blood pressure 64 mm[Hg] Jaquelin Hi APRN.CNM Work Phone: [facility] 03-09-2024 13:14-0500 Systolic blood pressure 108 mm[Hg] Jaquelin Hi APRN.CNM Work Phone: [facility] 02-18-2024 14:40-0500 Diastolic blood pressure 87 mm[Hg] Rachell Queden STEAM FINISHER-SERVICE LEARNING COORDINATOR Work Phone: [facility] 02-18-2024 14:40-0500 Heart rate 65 /min Rachell Queden STEAM FINISHER-SERVICE LEARNING COORDINATOR Work Phone: [facility] 02-18-2024 14:40-0500 Respiratory rate 20 /min Rachell Queden STEAM FINISHER-SERVICE LEARNING COORDINATOR Work Phone: [facility] 02-18-2024 14:40-0500 SaO2% (BldA) [Mass fraction] 100 % Rachell Queden STEAM FINISHER-SERVICE LEARNING COORDINATOR Work Phone: [facility] 02-18-2024 14:40-0500 Systolic blood pressure 104 mm[Hg] Rachell Queden STEAM FINISHER-SERVICE LEARNING COORDINATOR Work Phone: [facility] 02-18-2024 10:54-0500 Body height 160 cm Rachell Queden STEAM FINISHER-SERVICE LEARNING COORDINATOR Work Phone: [facility] 02-18-2024 10:54-0500 Body mass index (BMI) [Ratio] 24.09 kg/m2 Rachell Queden STEAM FINISHER-SERVICE LEARNING COORDINATOR Work Phone: [facility] 02-18-2024 10:54-0500 Body temperature 98.1 [degF] Rachell Viniciusden STEAM FINISHER-SERVICE LEARNING COORDINATOR Work Phone: [facility] 02-18-2024 10:54-0500 Body weight 61.69 kg Rachell Colvinden STEAM FINISHER-SERVICE LEARNING COORDINATOR Work Phone: [facility] 01-27-2024 09:38-0500 Body mass index (BMI) [Ratio] 23.21 kg/m2 Ramiro Hugo MD Work Phone: [facility] 01-27-2024 09:38-0500 Body weight 59.42 kg Ramiro Hugo MD Work Phone: [facility] 01-27-2024 09:38-0500 Diastolic blood pressure 74 mm[Hg] Ramiro Hugo MD Work Phone: [facility] 01-27-2024 09:38-0500 Heart rate 68 /min Ramiro Hugo MD Work Phone: [facility] 01-27-2024 09:38-0500 Respiratory rate 16 /min Ramiro Hugo MD Work Phone: [facility] 01-27-2024 09:38-0500 SaO2% (BldA) [Mass fraction] 94 % Ramiro Hugo MD Work Phone: [facility] 01-27-2024 09:38-0500 Systolic blood pressure 122 mm[Hg] Ramiro Hugo MD Work Phone: [facility] 12-26-2023 10:08-0500 Body height 160 cm Rachell Viniciusden STEAM FINISHER.SERVICE LEARNING COORDINATOR Work Phone: [facility] 12-26-2023 10:08-0500 Body mass index (BMI) [Ratio] 21.97 kg/m2 Rachell Queden STEAM FINISHER.SERVICE LEARNING COORDINATOR Work Phone: [facility] 12-26-2023 10:08-0500 Body temperature 98.01 [degF] Rachell Queden STEAM FINISHER.SERVICE LEARNING COORDINATOR Work Phone: [facility] 12-26-2023 10:08-0500 Body weight 56.25 kg Rachell Queden STEAM FINISHER.SERVICE LEARNING COORDINATOR Work Phone: [facility] 12-26-2023 10:08-0500 Diastolic blood pressure 62 mm[Hg] Rachell Queden STEAM FINISHER.SERVICE LEARNING COORDINATOR Work Phone: [facility] 12-26-2023 10:08-0500 Heart rate 52 /min Rachell Queden STEAM FINISHER.SERVICE LEARNING COORDINATOR Work Phone: [facility] 12-26-2023 10:08-0500 Respiratory rate 16 /min Rachell Queden STEAM FINISHER.SERVICE LEARNING COORDINATOR Work Phone: [facility] 12-26-2023 10:08-0500 SaO2% (BldA) [Mass fraction] 100 % Rachell Queden STEAM FINISHER.SERVICE LEARNING COORDINATOR Work Phone: [facility] 12-26-2023 10:08-0500 Systolic blood pressure 122 mm[Hg] Rachell Queden STEAM FINISHER.SERVICE LEARNING COORDINATOR Work Phone: [facility] 12-10-2023 13:20-0400 Body height 160 cm Norbert Noriega MD Work Phone: [facility] 12-10-2023 13:20-0400 Body mass index (BMI) [Ratio] 21.15 kg/m2 Norbert Noriega MD Work Phone: [facility] 12-10-2023 13:20-0400 Body weight 54.16 kg Norbert Noriega MD Work Phone: [facility] 12-10-2023 13:20-0400 Diastolic blood pressure 60 mm[Hg] Norbert Noriega MD Work Phone: [facility] 12-10-2023 13:20-0400 Heart rate 73 /min Norbert Noriega MD Work Phone: [facility] 12-10-2023 13:20-0400 SaO2% (BldA) [Mass fraction] 97 % Norbert Noriega MD Work Phone: [facility] 12-10-2023 13:20-0400 Systolic blood pressure 92 mm[Hg] Norbert Noriega MD Work Phone: [facility] 11-24-2023 12:45-0400 Body mass index (BMI) [Ratio] 21.26 kg/m2 Sandra Kelsey STEAM FINISHER.SERVICE LEARNING COORDINATOR Work Phone: [facility] 11-24-2023 12:45-0400 Body weight 54.43 kg Sandra Kelsey STEAM FINISHER.SERVICE LEARNING COORDINATOR Work Phone: [facility] 11-24-2023 12:45-0400 Diastolic blood pressure 64 mm[Hg] Sandra [place] STEAM FINISHER.SERVICE LEARNING COORDINATOR Work Phone: [facility] 11-24-2023 12:45-0400 Systolic blood pressure 118 mm[Hg] Sandra Kelsey STEAM FINISHER.SERVICE LEARNING COORDINATOR Work Phone: [facility] 10-03-2023 13:15-0400 SaO2% (BldA) [Mass fraction] 97 % Ramiro Hugo MD Work Phone: [facility] 10-03-2023 12:45-0400 Diastolic blood pressure 58 mm[Hg] Ramiro Hugo MD Work Phone: [facility] 10-03-2023 12:45-0400 Heart rate 68 /min Ramiro Hugo MD Work Phone: [facility] 10-03-2023 12:45-0400 Respiratory rate 16 /min Ramiro Hugo MD Work Phone: [facility] 10-03-2023 12:45-0400 Systolic blood pressure 112 mm[Hg] Ramiro Hugo MD Work Phone: [facility] 10-03-2023 11:47-0400 Body temperature 97.5 [degF] Ramiro Hugo MD Work Phone: [facility] 10-03-2023 06:57-0400 Body height 160 cm Ramiro Hugo MD Work Phone: [facility] 10-03-2023 06:57-0400 Body mass index (BMI) [Ratio] 20.39 kg/m2 Ramiro Hugo MD Work Phone: [facility] 10-03-2023 06:57-0400 Body weight 52.2 kg Ramiro Hugo MD Work Phone: [facility] 09-29-2023 14:35-0400 Body height 160 cm Conor Duarte MD Work Phone: [facility] 09-29-2023 14:35-0400 Body mass index (BMI) [Ratio] 20.27 kg/m2 Conor Duarte MD Work Phone: [facility] 09-29-2023 14:35-0400 Body temperature 97.59 [degF] Conor Duarte MD Work Phone: [facility] 09-29-2023 14:35-0400 Body weight 51.89 kg Conor Duarte MD Work Phone: [facility] 09-29-2023 14:35-0400 Diastolic blood pressure 62 mm[Hg] Conor Duarte MD Work Phone: [facility] 09-29-2023 14:35-0400 Heart rate 88 /min Conor Duarte MD Work Phone: [facility] 09-29-2023 14:35-0400 SaO2% (BldA) [Mass fraction] 100 % Conor Duarte MD Work Phone: [facility] 09-29-2023 14:35-0400 Systolic blood pressure 100 mm[Hg] Conor Duarte MD Work Phone: [facility] 09-23-2023 11:41-0400 Body mass index (BMI) [Ratio] 19.84 kg/m2 Mary Jo Barnett MD Work Phone: [facility] 09-23-2023 11:41-0400 Body weight 50.8 kg Mary Jo Barnett MD Work Phone: [facility] 09-23-2023 11:41-0400 Diastolic blood pressure 60 mm[Hg] Mary Jo Barnett MD Work Phone: [facility] 09-23-2023 11:41-0400 Systolic blood pressure 100 mm[Hg] Mary Jo Barnett MD Work Phone: [facility] 09-18-2023 10:10-0400 Body height 160 cm Barbi Hasharon STEAM FINISHER.SERVICE LEARNING COORDINATOR Work Phone: [facility] 09-18-2023 10:10-0400 Body mass index (BMI) [Ratio] 20.73 kg/m2 Barbi Haury STEAM FINISHER.SERVICE LEARNING COORDINATOR Work Phone: [facility] 09-18-2023 10:10-0400 Body weight 53.07 kg Barbi Haury STEAM FINISHER.SERVICE LEARNING COORDINATOR Work Phone: [facility] 09-18-2023 10:10-0400 Diastolic blood pressure 70 mm[Hg] Barbi Haury STEAM FINISHER.SERVICE LEARNING COORDINATOR Work Phone: [facility] 09-18-2023 10:10-0400 Heart rate 78 /min Barbi Haury STEAM FINISHER.SERVICE LEARNING COORDINATOR Work Phone: [facility] 09-18-2023 10:10-0400 Respiratory rate 12 /min Barbi Haury STEAM FINISHER.SERVICE LEARNING COORDINATOR Work Phone: [facility] 09-18-2023 10:10-0400 SaO2% (BldA) [Mass fraction] 98 % Barbi Haury STEAM FINISHER.SERVICE LEARNING COORDINATOR Work Phone: [facility] 09-18-2023 10:10-0400 Systolic blood pressure 110 mm[Hg] Barbi Haury STEAM FINISHER.SERVICE LEARNING COORDINATOR Work Phone: [facility] 09-12-2023 10:36-0400 Body height 160 cm Mary Jo Barnett MD Work Phone: [facility] 09-12-2023 10:36-0400 Body mass index (BMI) [Ratio] 20.37 kg/m2 Mary Jo Barnett MD Work Phone: [facility] 09-12-2023 10:36-0400 Body weight 52.16 kg Mary Jo Barnett MD Work Phone: [facility] 09-12-2023 10:36-0400 Diastolic blood pressure 60 mm[Hg] Mary Jo Barnett MD Work Phone: [facility] 09-12-2023 10:36-0400 Heart rate 73 /min Mary Jo Barnett MD Work Phone: [facility] 09-12-2023 10:36-0400 SaO2% (BldA) [Mass fraction] 98 % Mary Jonohelia Barnett MD Work Phone: [facility] 09-12-2023 10:36-0400 Systolic blood pressure 100 mm[Hg] Mary Jo Barnett MD Work Phone: [facility] 09-01-2023 09:19-0400 Body height 160 cm Pac 1 Work Phone: [facility] 09-01-2023 09:19-0400 Body mass index (BMI) [Ratio] 21.08 kg/m2 Pacc 1 Work Phone: [facility] 09-01-2023 09:19-0400 Body temperature 97.9 [degF] Pac 1 Work Phone: [facility] 09-01-2023 09:19-0400 Body weight 53.98 kg Pacc 1 Work Phone: [facility] 09-01-2023 09:19-0400 Diastolic blood pressure 60 mm[Hg] Pacc 1 Work Phone: [facility] 09-01-2023 09:19-0400 Heart rate 66 /min Pacc 1 Work Phone: [facility] 09-01-2023 09:19-0400 Respiratory rate 14 /min Pacc 1 Work Phone: [facility] 09-01-2023 09:19-0400 SaO2% (BldA) [Mass fraction] 100 % Pacc 1 Work Phone: [facility] 09-01-2023 09:19-0400 Systolic blood pressure 96 mm[Hg] Pacc 1 Work Phone: [facility] 08-21-2023 11:35-0400 Body height 160 cm Ramiro Hugo MD Work Phone: [facility] 08-21-2023 11:35-0400 Body mass index (BMI) [Ratio] 21.79 kg/m2 Ramiro Hugo MD Work Phone: [facility] 08-21-2023 11:35-0400 Body weight 55.79 kg Ramiro Hugo MD Work Phone: [facility] 08-21-2023 11:35-0400 Diastolic blood pressure 63 mm[Hg] Ramiro Hugo MD Work Phone: [facility] 08-21-2023 11:35-0400 Heart rate 75 /min Ramiro Hugo MD Work Phone: [facility] 08-21-2023 11:35-0400 SaO2% (BldA) [Mass fraction] 98 % Ramiro Hugo MD Work Phone: [facility] 08-21-2023 11:35-0400 Systolic blood pressure 98 mm[Hg] Ramiro Hugo MD Work Phone: [facility] 08-20-2023 09:23-0400 Body mass index (BMI) [Ratio] 20.9 kg/m2 Mary Jo Barnett MD Work Phone: [facility] 08-20-2023 09:23-0400 Body weight 53.52 kg Mary Jo Barnett MD Work Phone: [facility] 08-20-2023 09:23-0400 Diastolic blood pressure 60 mm[Hg] Mary Jo Barnett MD Work Phone: [facility] 08-20-2023 09:23-0400 Systolic blood pressure 94 mm[Hg] Mary Jo Barnett MD Work Phone: [facility] 08-19-2023 15:47-0400 Body mass index (BMI) [Ratio] 21.12 kg/m2 Sandra [place] STEAM FINISHER.SERVICE LEARNING COORDINATOR Work Phone: [facility] 08-19-2023 15:47-0400 Body weight 54.07 kg Sandra Kelsey STEAM FINISHER.SERVICE LEARNING COORDINATOR Work Phone: [facility] 08-19-2023 15:47-0400 Diastolic blood pressure 58 mm[Hg] Sandra [place] STEAM FINISHER.SERVICE LEARNING COORDINATOR Work Phone: [facility] 08-19-2023 15:47-0400 Systolic blood pressure 98 mm[Hg] Sandra Kelsey STEAM FINISHER.SERVICE LEARNING COORDINATOR Work Phone: [facility] 08-18-2023 08:21-0400 Body mass index (BMI) [Ratio] 21.26 kg/m2 Sandra [place] STEAM FINISHER.SERVICE LEARNING COORDINATOR Work Phone: [facility] 08-18-2023 08:21-0400 Body weight 54.43 kg Sandra Kelsey STEAM FINISHER.SERVICE LEARNING COORDINATOR Work Phone: [facility] 08-18-2023 08:21-0400 Diastolic blood pressure 64 mm[Hg] Sandra Kelsey STEAM FINISHER.SERVICE LEARNING COORDINATOR Work Phone: [facility] 08-18-2023 08:21-0400 Systolic blood pressure 100 mm[Hg] Sandra Kelsey STEAM FINISHER.SERVICE LEARNING COORDINATOR Work Phone: [facility] 07-31-2023 15:04-0400 Body height 160 cm Rachell Queden STEAM FINISHER.SERVICE LEARNING COORDINATOR Work Phone: [facility] 07-31-2023 15:04-0400 Body mass index (BMI) [Ratio] 20.73 kg/m2 Rachell Queden STEAM FINISHER.SERVICE LEARNING COORDINATOR Work Phone: [facility] 07-31-2023 15:04-0400 Body temperature 97.9 [degF] Rachell Queden STEAM FINISHER.SERVICE LEARNING COORDINATOR Work Phone: [facility] 07-31-2023 15:04-0400 Body weight 53.07 kg Rachell Queden STEAM FINISHER.SERVICE LEARNING COORDINATOR Work Phone: [facility] 07-31-2023 15:04-0400 Diastolic blood pressure 62 mm[Hg] Rachell Queden STEAM FINISHER.SERVICE LEARNING COORDINATOR Work Phone: [facility] 07-31-2023 15:04-0400 Heart rate 73 /min Rachell Queden STEAM FINISHER.SERVICE LEARNING COORDINATOR Work Phone: [facility] 07-31-2023 15:04-0400 Respiratory rate 16 /min Rachell Queden STEAM FINISHER.SERVICE LEARNING COORDINATOR Work Phone: [facility] 07-31-2023 15:04-0400 SaO2% (BldA) [Mass fraction] 98 % Rachell Queden STEAM FINISHER.SERVICE LEARNING COORDINATOR Work Phone: [facility] 07-31-2023 15:04-0400 Systolic blood pressure 102 mm[Hg] Rachell Queden STEAM FINISHER.SERVICE LEARNING COORDINATOR Work Phone: [facility] 07-24-2023 10:49-0400 Body mass index (BMI) [Ratio] 21.43 kg/m2 Gino Plotts STEAM FINISHER.CNM Work Phone: [facility] 07-24-2023 10:49-0400 Body weight 54.88 kg Gino Muhammadts STEAM FINISHER.CNM Work Phone: [facility] 07-24-2023 10:49-0400 Diastolic blood pressure 64 mm[Hg] Gino Plotts STEAM FINISHER.CNM Work Phone: [facility] 07-24-2023 10:49-0400 Systolic blood pressure 100 mm[Hg] Gino Plotts STEAM FINISHER.CNM Work Phone: [facility] 07-02-2023 13:26-0400 Body height 160 cm Mitra Reed APRN.SERVICE LEARNING COORDINATOR Work Phone: [facility] 07-02-2023 13:26-0400 Body mass index (BMI) [Ratio] 20.37 kg/m2 Mitra Reed APRN.SERVICE LEARNING COORDINATOR Work Phone: [facility] 07-02-2023 13:26-0400 Body temperature 98.49 [degF] Mitra Reed APRN.SERVICE LEARNING COORDINATOR Work Phone: [facility] 07-02-2023 13:26-0400 Body weight 52.16 kg Mitra Reed APRN.SERVICE LEARNING COORDINATOR Work Phone: [facility] 07-02-2023 13:26-0400 Diastolic blood pressure 60 mm[Hg] Mitra Reed APRN.SERVICE LEARNING COORDINATOR Work Phone: [facility] 07-02-2023 13:26-0400 Heart rate 87 /min Mitra Reed APRN.SERVICE LEARNING COORDINATOR Work Phone: [facility] 07-02-2023 13:26-0400 SaO2% (BldA) [Mass fraction] 99 % Mitra Reed APRN.SERVICE LEARNING COORDINATOR Work Phone: [facility] 07-02-2023 13:26-0400 Systolic blood pressure 100 mm[Hg] Mitra Reed APRN.SERVICE LEARNING COORDINATOR Work Phone: [facility] 07-02-2023 08:13-0400 Body height 159.7 cm Miki Jaramillo MD Work Phone: [facility] 07-02-2023 08:13-0400 Body mass index (BMI) [Ratio] 20.6 kg/m2 Miki Jaramillo MD Work Phone: [facility] 07-02-2023 08:13-0400 Body temperature 97.3 [degF] Miki Jaramillo MD Work Phone: [facility] 07-02-2023 08:13-0400 Body weight 52.53 kg Miki Jaramillo MD Work Phone: [facility] 07-02-2023 08:13-0400 Diastolic blood pressure 69 mm[Hg] Miki Jaramillo MD Work Phone: [facility] 07-02-2023 08:13-0400 Heart rate 86 /min Miki Jaramillo MD Work Phone: [facility] 07-02-2023 08:13-0400 Respiratory rate 16 /min Miki Jaramillo MD Work Phone: [facility] 07-02-2023 08:13-0400 SaO2% (BldA) [Mass fraction] 99 % Miki Jaramillo MD Work Phone: [facility] 07-02-2023 08:13-0400 Systolic blood pressure 104 mm[Hg] Miki Jaramillo MD Work Phone: [facility] 06-26-2023 13:24-0400 Body mass index (BMI) [Ratio] 20.73 kg/m2 Prabhu Ortez MD Work Phone: [facility] 06-26-2023 13:24-0400 Body weight 53.07 kg Prabhu Ortez MD Work Phone: [facility] 06-26-2023 13:24-0400 Diastolic blood pressure 64 mm[Hg] Prabhu Ortez MD Work Phone: [facility] 06-26-2023 13:24-0400 Systolic blood pressure 102 mm[Hg] Prabhu Ortez MD Work Phone: [facility] 06-25-2023 13:56-0400 Diastolic blood pressure 86 mm[Hg] Norbert Noriega MD Work Phone: [facility] 06-25-2023 13:56-0400 Systolic blood pressure 102 mm[Hg] Norbert Noriega MD Work Phone: [facility] 06-25-2023 13:50-0400 Body height 160 cm Norbert Noriega MD Work Phone: [facility] 06-25-2023 13:50-0400 Body mass index (BMI) [Ratio] 20.9 kg/m2 Norbert Noriega MD Work Phone: [facility] 06-25-2023 13:50-0400 Body weight 53.52 kg Norbert Noriega MD Work Phone: [facility] 06-25-2023 13:50-0400 Heart rate 100 /min Norbert Noriega MD Work Phone: [facility] 06-25-2023 13:50-0400 SaO2% (BldA) [Mass fraction] 99 % Norbert Noriega MD Work Phone: [facility] 06-24-2023 22:01-0400 Diastolic blood pressure 77 mm[Hg] Rachell Queden STEAM FINISHER-SERVICE LEARNING COORDINATOR Work Phone: [facility] 06-24-2023 22:01-0400 Heart rate 70 /min Rachell Queden STEAM FINISHER-SERVICE LEARNING COORDINATOR Work Phone: [facility] 06-24-2023 22:01-0400 Respiratory rate 18 /min Rachell Queden STEAM FINISHER-SERVICE LEARNING COORDINATOR Work Phone: [facility] 06-24-2023 22:01-0400 SaO2% (BldA) [Mass fraction] 98 % Rachell Queden STEAM FINISHER-SERVICE LEARNING COORDINATOR Work Phone: [facility] 06-24-2023 22:01-0400 Systolic blood pressure 125 mm[Hg] Rachell Queden STEAM FINISHER-SERVICE LEARNING COORDINATOR Work Phone: [facility] 06-24-2023 18:41-0400 Body height 160 cm Rachell Amador STEAM FINISHER-SERVICE LEARNING COORDINATOR Work Phone: [facility] 06-24-2023 18:41-0400 Body mass index (BMI) [Ratio] 20.73 kg/m2 Rachell Amador STEAM FINISHER-SERVICE LEARNING COORDINATOR Work Phone: [facility] 06-24-2023 18:41-0400 Body temperature 97.39 [degF] Rachell Amador STEAM FINISHER-SERVICE LEARNING COORDINATOR Work Phone: [facility] 06-24-2023 18:41-0400 Body weight 53.07 kg Rachell Amador STEAM FINISHER-SERVICE LEARNING COORDINATOR Work Phone: [facility] 06-22-2023 09:33-0400 Body height 160.02 cm [facility] 06-22-2023 09:33-0400 Body mass index (BMI) [Ratio] 22.2 kg/m2 [facility] 06-22-2023 09:33-0400 Body temperature 97.3 [degF] [facility] 06-22-2023 09:33-0400 Body weight 57 kg [facility] 06-22-2023 09:33-0400 Diastolic blood pressure 90 mm[Hg] [facility] 06-22-2023 09:33-0400 Heart rate 81 /min [facility] 06-22-2023 09:33-0400 Respiratory rate 16 /min [facility] 06-22-2023 09:33-0400 SaO2% (BldA) [Mass fraction] 99 % [facility] 06-22-2023 09:33-0400 Systolic blood pressure 120 mm[Hg] [facility] 06-21-2023 09:30-0400 Diastolic blood pressure 72 mm[Hg] Saturnino Velázquez DO Work Phone: [facility] 06-21-2023 09:30-0400 Heart rate 78 /min Saturnino Velázquez DO Work Phone: [facility] 06-21-2023 09:30-0400 Respiratory rate 16 /min Saturnino Velázquez DO Work Phone: [facility] 06-21-2023 09:30-0400 SaO2% (BldA) [Mass fraction] 100 % Saturnino Velázquez DO Work Phone: [facility] 06-21-2023 09:30-0400 Systolic blood pressure 122 mm[Hg] Saturnino Lemasters DO Work Phone: [facility] 06-21-2023 08:19-0400 Body mass index (BMI) [Ratio] 22.32 kg/m2 Saturnino Velázquez DO Work Phone: [facility] 06-21-2023 08:19-0400 Body weight 57.15 kg Saturnino Velázquez DO Work Phone: [facility] 06-21-2023 08:17-0400 Body temperature 98.4 [degF] Saturnino Lemhenrique DO Work Phone: [facility] 06-20-2023 11:24-0400 Body temperature 97.2 [degF] Saturnino Lemhenrique DO Work Phone: [facility] 06-20-2023 11:24-0400 Diastolic blood pressure 53 mm[Hg] Saturnino Velázquez DO Work Phone: [facility] 06-20-2023 11:24-0400 Heart rate 92 /min Saturnino Lemhenrique DO Work Phone: [facility] 06-20-2023 11:24-0400 Respiratory rate 16 /min Saturnino Lemhenrique DO Work Phone: [facility] 06-20-2023 11:24-0400 SaO2% (BldA) [Mass fraction] 96 % Saturnino Velázquez DO Work Phone: [facility] 06-20-2023 11:24-0400 Systolic blood pressure 90 mm[Hg] Saturnino Lemasters DO Work Phone: [facility] 06-20-2023 03:29-0400 Body height 160 cm Saturnino Velázquez DO Work Phone: [facility] 06-20-2023 03:29-0400 Body mass index (BMI) [Ratio] 22.38 kg/m2 Saturnino Lemasters DO Work Phone: [facility] 06-20-2023 03:290400 Body weight 57.3 kg Saturnino Lemasters DO Work Phone: [facility] 06-18-2023 18:05-0400 Diastolic blood pressure 68 mm[Hg] Saturnino Lemasters DO Work Phone: [facility] 06-18-2023 18:05-0400 Heart rate 50 /min Saturnino Velázquez DO Work Phone: [facility] 06-18-2023 18:05-0400 Respiratory rate 18 /min Saturnino Velázquez DO Work Phone: [facility] 06-18-2023 18:05-0400 SaO2% (BldA) [Mass fraction] 100 % Saturnino Velázquez DO Work Phone: [facility] 06-18-2023 18:05-0400 Systolic blood pressure 107 mm[Hg] Saturnino Velázquez DO Work Phone: [facility] 06-18-2023 17:21-0400 Body height 160 cm Saturnino Velázquez DO Work Phone: [facility] 06-18-2023 17:21-0400 Body mass index (BMI) [Ratio] 21.79 kg/m2 Saturnino Melania DO Work Phone: [facility] 06-18-2023 17:21-0400 Body temperature 97.81 [degF] Saturnino Velázquez DO Work Phone: [facility] 06-18-2023 17:21-0400 Body weight 55.79 kg Saturnino Velázquez DO Work Phone: [facility] 06-17-2023 11:30-0400 Diastolic blood pressure 65 mm[Hg] Alla Llanes MD Work Phone: 2(647)794-420435 [place] [address] 06-17-2023 11:30-0400 Heart rate 68 /min Alla Llanes MD Work Phone: 8(200)781-815535 [place] [address] 06-17-2023 11:30-0400 Respiratory rate 16 /min Alla Llanes MD Work Phone: 1(502)387-756335 [place] [address] 06-17-2023 11:30-0400 SaO2% (BldA) [Mass fraction] 100 % Alla Llanes MD Work Phone: 1(804)789-809035 [place] [address] 06-17-2023 11:30-0400 Systolic blood pressure 105 mm[Hg] Alla Llanes MD Work Phone: 5(741)346-024235 [place] [address] 06-17-2023 10:33-0400 Body temperature 96.69 [degF] Alla Llanes MD Work Phone: 7(534)771-488335 [place] [address] 06-17-2023 08:42-0400 Body height 160 cm Alla Llanes MD Work Phone: 5(383)010-755735 [place] [address] 06-17-2023 08:42-0400 Body mass index (BMI) [Ratio] 21.95 kg/m2 Alla Llanes MD Work Phone: 6(755)547-649035 [place] [address] 06-17-2023 08:42-0400 Body weight 56.2 kg Alla Llanes MD Work Phone: 0(491)253-194535 [place] [address] 06-03-2023 14:08-0400 Body height 160 cm Alla Llanes MD Work Phone: 4(811)623-551935 [place] [address] 06-03-2023 14:08-0400 Diastolic blood pressure 58 mm[Hg] Alla Llanes MD Work Phone: 9(080)411-323535 [place] [address] 06-03-2023 14:08-0400 Heart rate 90 /min Alla Llanes MD Work Phone: 6(513)818-024735 [place] [address] 06-03-2023 14:08-0400 Systolic blood pressure 98 mm[Hg] Alla Llanes MD Work Phone: [facility] 06-03-2023 10:49-0400 Body height 160 cm Rachell Queden STEAM FINISHER.SERVICE LEARNING COORDINATOR Work Phone: [facility] 06-03-2023 10:49-0400 Body mass index (BMI) [Ratio] 23.03 kg/m2 Rachell Queden STEAM FINISHER.SERVICE LEARNING COORDINATOR Work Phone: [facility] 06-03-2023 10:49-0400 Body temperature 98.01 [degF] Rachell Queden STEAM FINISHER.SERVICE LEARNING COORDINATOR Work Phone: [facility] 06-03-2023 10:49-0400 Body weight 58.97 kg Rachell Queden STEAM FINISHER.SERVICE LEARNING COORDINATOR Work Phone: [facility] 06-03-2023 10:49-0400 Diastolic blood pressure 62 mm[Hg] Rachell Queden STEAM FINISHER.SERVICE LEARNING COORDINATOR Work Phone: [facility] 06-03-2023 10:49-0400 Heart rate 78 /min Rachell Queden STEAM FINISHER.SERVICE LEARNING COORDINATOR Work Phone: [facility] 06-03-2023 10:49-0400 Respiratory rate 18 /min Rachell Queden STEAM FINISHER.SERVICE LEARNING COORDINATOR Work Phone: [facility] 06-03-2023 10:49-0400 SaO2% (BldA) [Mass fraction] 97 % Rachell Queden STEAM FINISHER.SERVICE LEARNING COORDINATOR Work Phone: [facility] 06-03-2023 10:49-0400 Systolic blood pressure 104 mm[Hg] Rachell Queden STEAM FINISHER.SERVICE LEARNING COORDINATOR Work Phone: [facility] 04-23-2023 13:57-0400 Body weight 54.88 kg Gino Valero STEAM FINISHER.CN Work Phone: [facility] 04-23-2023 13:57-0400 Diastolic blood pressure 70 mm[Hg] Gino Sabinajadon STEAM FINISHER.CNM Work Phone: [facility] 04-23-2023 13:57-0400 Systolic blood pressure 108 mm[Hg] Gino Sabinajadon STEAM FINISHER.CNM Work Phone: [facility] 01-30-2023 12:14-0500 Body height 160 cm Prabhu Ortez MD Work Phone: [facility] 01-30-2023 12:14-0500 Body weight 63.5 kg Prabhu Ortez MD Work Phone: [facility] 01-30-2023 12:14-0500 Diastolic blood pressure 72 mm[Hg] Prabhu Ortez MD Work Phone: [facility] 01-30-2023 12:14-0500 Systolic blood pressure 114 mm[Hg] Prabhu Ortez MD Work Phone: [facility] 12-03-2022 14:41-0400 Body weight 70.85 kg Prabhu Ortez MD Work Phone: [facility] 12-03-2022 14:41-0400 Diastolic blood pressure 68 mm[Hg] Prabhu Ortez MD Work Phone: [facility] 12-03-2022 14:41-0400 Systolic blood pressure 108 mm[Hg] Prabhu Ortez MD Work Phone: [facility] 11-19-2022 15:48-0400 Body weight 68.4 kg Prabhu Ortez MD Work Phone: [facility] 11-19-2022 15:48-0400 Diastolic blood pressure 68 mm[Hg] Prabhu Ortez MD Work Phone: [facility] 11-19-2022 15:48-0400 Systolic blood pressure 106 mm[Hg] Prabhu Ortez MD Work Phone: [facility] 11-18-2022 13:14-0400 Body weight 67.5 kg Jaquelin Hi STEAM FINISHER.CNM Work Phone: [facility] 11-18-2022 13:14-0400 Diastolic blood pressure 62 mm[Hg] Jaquelin Hi APRN.CNM Work Phone: [facility] 11-18-2022 13:14-0400 Systolic blood pressure 98 mm[Hg] Jaquelin Hi APRN.CNLilly Work Phone: [facility] 08-29-2022 17:57-0400 Diastolic blood pressure 71 mm[Hg] [facility] 08-29-2022 17:57-0400 Heart rate 72 /min [facility] 08-29-2022 17:57-0400 Respiratory rate 15 /min [facility] 08-29-2022 17:57-0400 SaO2% (BldA) [Mass fraction] 98 % [facility] 08-29-2022 17:57-0400 Systolic blood pressure 108 mm[Hg] [facility] 08-29-2022 15:30-0400 Body height 160.02 cm [facility] 08-29-2022 15:30-0400 Body mass index (BMI) [Percentile] Per age and sex 70.6 % [facility] 08-29-2022 15:30-0400 Body mass index (BMI) [Ratio] 23.8 kg/m2 [facility] 08-29-2022 15:30-0400 Body temperature 96.8 [degF] [facility] 08-29-2022 15:30-0400 Body weight 61.1 kg [facility] 08-17-2022 13:28-0400 Heart rate 78 /min [facility] 08-17-2022 13:28-0400 Respiratory rate 18 /min [facility] 08-17-2022 13:28-0400 SaO2% (BldA) [Mass fraction] 98 % [facility] 08-17-2022 10:15-0400 Body height 160.02 cm [facility] 08-17-2022 10:15-0400 Body temperature 97.1 [degF] [facility] 08-17-2022 10:15-0400 Diastolic blood pressure 58 mm[Hg] [facility] 08-17-2022 10:15-0400 Systolic blood pressure 102 mm[Hg] [facility] 07-12-2022 19:15-0400 Diastolic blood pressure 66 mm[Hg] No Pcp Required [facility] 07-12-2022 19:15-0400 Heart rate 91 /min No Pcp Required [facility] 07-12-2022 19:15-0400 Respiratory rate 16 /min No Pcp Required [facility] 07-12-2022 19:15-0400 SaO2% (BldA) [Mass fraction] 100 % No Pcp Required [facility] 07-12-2022 19:15-0400 Systolic blood pressure 110 mm[Hg] No Pcp Required [facility] 07-12-2022 15:29-0400 Body height 160 cm No Pcp Required [facility] 07-12-2022 15:29-0400 Body temperature 97.52 [degF] No Pcp Required [facility] 07-12-2022 15:29-0400 Body weight 54.5 kg No Pcp Required [facility] 11-12-2021 19:03-0400 Body temperature 98.6 [degF] Leeann Silva STEAM FINISHER.SERVICE LEARNING COORDINATOR Work Phone: [facility] 11-12-2021 19:03-0400 Body weight 54.34 kg Leeann Silva STEAM FINISHER.SERVICE LEARNING COORDINATOR Work Phone: [facility] 11-12-2021 19:03-0400 Diastolic blood pressure 82 mm[Hg] Leeann Silva STEAM FINISHER.SERVICE LEARNING COORDINATOR Work Phone: [facility] 11-12-2021 19:03-0400 Heart rate 87 /min Leeann Silva STEAM FINISHER.SERVICE LEARNING COORDINATOR Work Phone: [facility] 11-12-2021 19:03-0400 Respiratory rate 18 /min Leeann Silva STEAM FINISHER.SERVICE LEARNING COORDINATOR Work Phone: [facility] 11-12-2021 19:03-0400 SaO2% (BldA) [Mass fraction] 100 % Leeann Silva STEAM FINISHER.SERVICE LEARNING COORDINATOR Work Phone: [facility] 11-12-2021 19:03-0400 Systolic blood pressure 116 mm[Hg] Leeann Silva STEAM FINISHER.SERVICE LEARNING COORDINATOR Work Phone: [facility] 08-14-2021 11:47-0400 Body temperature 98.29 [degF] [facility] STEAM FINISHER.SERVICE LEARNING COORDINATOR Work Phone: [facility] 08-14-2021 11:47-0400 Body weight 49.9 kg [facility] STEAM FINISHER.SERVICE LEARNING COORDINATOR Work Phone: [facility] 08-14-2021 11:47-0400 Diastolic blood pressure 72 mm[Hg] [facility] STEAM FINISHER.SERVICE LEARNING COORDINATOR Work Phone: [facility] 08-14-2021 11:47-0400 Heart rate 80 /min Steven Pendleannbury STEAM FINISHER.SERVICE LEARNING COORDINATOR Work Phone: [facility] 08-14-2021 11:47-0400 Respiratory rate 18 /min [facility] STEAM FINISHER.SERVICE LEARNING COORDINATOR Work Phone: [facility] 08-14-2021 11:47-0400 SaO2% (BldA) [Mass fraction] 99 % [facility] STEAM FINISHER.SERVICE LEARNING COORDINATOR Work Phone: [facility] 08-14-2021 11:47-0400 Systolic blood pressure 102 mm[Hg] [facility] STEAM FINISHER.SERVICE LEARNING COORDINATOR Work Phone: [facility] 03-21-2021 19:30-0500 Diastolic blood pressure 64 mm[Hg] No Pcp Required [facility] 03-21-2021 19:30-0500 Heart rate 68 /min No Pcp Required [facility] 03-21-2021 19:30-0500 Respiratory rate 16 /min No Pcp Required [facility] 03-21-2021 19:30-0500 SaO2% (BldA) [Mass fraction] 96 % No Pcp Required [facility] 03-21-2021 19:30-0500 Systolic blood pressure 112 mm[Hg] No Pcp Required [facility] 03-21-2021 14:50-0500 Body height 160 cm No Pcp Required [facility] 03-21-2021 14:50-0500 Body temperature 98.78 [degF] No Pcp Required [facility] 03-21-2021 14:50-0500 Body weight 50.5 kg No Pcp Required [facility] Encounters Encounter Date Encounter Type Care Provider Facility Start: 09-17-2024 End: 09-17-2024 ambulatory BARBI TIAN Facility:[facility] Start: 09-16-2024 End: 09-16-2024 ambulatory RACHELL AMADOR Facility:[facility] Start: 09-11-2024 End: 09-11-2024 ambulatory PHYSICIAN [facility] Start: 09-10-2024 End: 09-10-2024 ambulatory Yamila Ballard MD Work Phone: OB/Gynecology Comment on above: UTI Start: 09-09-2024 End: 09-09-2024 ambulatory RIO KELLY [facility] Start: 09-09-2024 End: 09-09-2024 Subsequent hospital visit by physician Rio Kelly DO Work Phone: [facility] Start: 09-09-2024 End: 09-09-2024 Telephone encounter Jaquelin Hi APRN.CNM Work Phone: OB/Gynecology Comment on above: Care Start: 09-09-2024 End: 09-09-2024 ambulatory Rachell Amador FLESHING MACHINE OPERATOR-C Work Phone: -[facility] Start: 09-09-2024 End: 09-09-2024 Patient encounter procedure Jaquelin Hi CNM -[facility] Work Phone: Start: 09-08-2024 End: 09-08-2024 ambulatory GINO VALERO Facility:[facility] Start: 09-08-2024 End: 09-08-2024 Patient encounter procedure Gino Valero APRN.CNM Work Phone: OB/Gynecology Comment on above: 35 weeks gestation o f (HCC) (Primary Dx); Irregular uterine contractions (HCC); Supervision of high risk in third trimester (HCC) Start: 09-07-2024 End: 09-08-2024 ambulatory Rachell Amador FLESHING MACHINE OPERATOR-C Work Phone: -[facility] Start: 09-07-2024 End: 09-07-2024 ambulatory [facility] Facility:[facility] Start: 09-07-2024 End: 09-08-2024 Patient encounter procedure Whi Tech 1 [employer] Bpm Consultant [facility] Maternal Medicine Comment on above: Encounter for ultras ound to check growth (HCC) (Primary Dx); History of shoulder dystocia in prior ; 34 weeks gestation of (HCC) Supervision of high risk in third trimester (HCC) (Primary Dx); 34 weeks gestation of (HCC); History of shoulder dystocia in prior Start: 09-04-2024 End: 09-04-2024 ambulatory PRABHU ORTEZ Facility:[facility] Start: 08-24-2024 End: 08-24-2024 ambulatory Treatment Room [facility] 2 INFUSION Comment on above: Maternal iron defici ency anemia complicating , third trimester (HCC) (Primary Dx) Start: 08-24-2024 End: 08-24-2024 ambulatory [facility]HELL [facility] Facility:[facility] Start: 08-24-2024 End: 08-24-2024 Patient encounter procedure Prabhu Ortez MD Work Phone: OB/Gynecology Comment on above: Supervision of high risk in third trimester (HCC) (Primary Dx); Thrombocytopenia affecting (HCC); History of shoulder dystocia in prior ; Antepartum anemia complicating in third trimester (HCC); Paroxysmal SVT (supraventricular tachycardia) (HCC); 32 weeks gestation of (HCC) Start: 08-20-2024 End: 08-20-2024 ambulatory Treatment Room [facility] 2 INFUSION Comment on above: Maternal iron defici ency anemia complicating , third trimester (HCC) (Primary Dx) Start: 08-17-2024 End: 08-17-2024 ambulatory Treatment Room [facility] 1 INFUSION Comment on above: Maternal iron defici ency anemia complicating , third trimester (HCC) (Primary Dx) Start: 08-12-2024 End: 08-12-2024 ambulatory Treatment Room [facility] 2 INFUSION Comment on above: Maternal iron defici ency anemia complicating , third trimester (HCC) (Primary Dx) Start: 08-10-2024 End: 08-10-2024 ambulatory [facility] Facility:[facility] Start: 08-10-2024 End: 08-10-2024 Patient encounter procedure Prabhu Ortez MD Work Phone: OB/Gynecology Comment on above: Supervision of high risk in third trimester (HCC) (Primary Dx); Thrombocytopenia affecting ([facility]); Antepartum anemia complicating in third trimester ([facility]); History of shoulder dystocia in prior ; Paroxysmal SVT (supraventricular tachycardia) ([facility]) Start: 08-05-2024 End: 08-05-2024 [facility] Facility:[facility] Start: 08-05-2024 End: 08-05-2024 Patient encounter procedure Nayely Louise PARKER Work Phone: BLOOD MANAGEMENT Comment on above: Maternal iron defici ency anemia complicating , third trimester (HCC) (Primary Dx) Start: 08-05-2024 End: 08-05-2024 Telemedicine consultation with patient Nayely Sanchezdipak PARKER Work Phone: BLOOD MANAGEMENT Start: 08-03-2024 End: 08-18-2024 E-mail encounter from caregiver Nayely Sanchezdipak PARKER Work Phone: BLOOD MANAGEMENT Start: 08-03-2024 End: 08-03-2024 [facility] FLESHING MACHINE OPERATOR-C Work Phone: [facility] Work Phone: Start: 08-03-2024 End: 08-18-[address] Prabhu Ortez MD -[facility] Work Phone: Comment on above: Blood Management Rico ointment Start: 08-03-2024 End: 08-03-2024 ambulatory [facility] Amb[facility] Start: 08-03-2024 End: 08-03-2024 Office outpatient visit 25 minutes Ramiro Hugo MD Work Phone: [facility] Comment on above: SVT (supraventricula r tachycardia) Start: 08-01-2024 End: 08-03-2024 ambulatory [facility] MANUELA Work Phone: OB/Gynecology Comment on above: Preeclampsia Start: 07-28-2024 End: 07-28-2024 Telephone encounter Nurse [employer] Bpm Consultant [place] Work Phone: Obstetrics/Gynecology Comment on above: PRAF [...] trimester (HCC) Start: 07-27-2024 End: 07-27-2024 ambulatory RACHELL AMADOR Facility:[facility] Start: 06-29-2024 End: 06-29-2024 [facility] Facility:[facility] Start: 06-02-2024 End: 06-02-2024 Telephone encounter Nurse [employer] Bpm Consultant [place] Work Phone: Obstetrics/Gynecology Comment on above: PRAF Start: 06-01-2024 End: 06-01-2024 Patient encounter procedure Whi Tech 1 [employer] Bpm Consultant [facility] Maternal Medicine Comment on above: Encounter for anatomic survey (HCC) (Primary Dx); 20 weeks gestation of (HCC) Supervision of other high risk pregnancies, second trimester (HCC) (Primary Dx); 20 weeks gestation of (HCC); History of shoulder dystocia in prior ; Rh negative state in antepartum period (HCC) Start: 06-01-2024 End: 06-01-2024 [facility] Facility:[facility] Start: 05-10-2024 End: 05-11-2024 Telephone encounter Prabhu Ortez MD Work Phone: OB/Gynecology Comment on above: Breast Pump RX Start: 05-04-2024 End: 05-04-2024 [facility] JAQUELIN HI Facility:[facility] Start: 05-04-2024 End: 05-04-2024 Patient encounter procedure Jaquelinnahomy Hi APRN.CNM Work Phone: OB/Gynecology Comment on above: Supervision of other high risk pregnancies, second trimester (Primary Dx); 16 weeks gestation of ; Nausea and vomiting in ; History of cardiac radiofrequency ablation; History of pulmonary embolism; History of shoulder dystocia in prior ; Depression, unspecified depression type; Rh negative state in antepartum period Start: 04-07-2024 End: 04-07-2024 [facility] Facility:[facility] Start: 04-07-2024 End: 04-07-2024 Patient encounter procedure Whi Tech 1 [employer] Bpm Consultant [facility] Maternal Medicine Comment on [...] in antepartum period Start: 04-07-2024 End: [facility]24 [facility] Start: 03-16-2024 End: 03-16-2024 [facility] Facility:[facility] Start: 03-16-2024 End: 03-16-2024 Patient encounter procedure Jaquelin Mateo ROY Work Phone: OB/Gynecology Comment on above: Supervision of other high risk pregnancies, first trimester (Primary Dx); History of pulmonary embolism; Nausea and vomiting in Start: 03-11-2024 End: 03-11-2024 Telephone encounter Chantelle Rodriguez RN Maternal Medic ine Comment on above: [employer]ire [employer]apper - O ther (PRAF) Start: 03-10-2024 End: 03-10-2024 Emergency department patient visit RACHELL AMADOR Facility:[facility] Start: 03-09-2024 End: 03-09-2024 [facility] Facility:[facility] Start: 03-09-2024 End: 03-09-2024 Patient encounter procedure Jaquelin Hi CNM Work Phone: OB/Gynecology Comment on above: with uncer tain dates, antepartum (Primary Dx); Screening for cervical cancer; Screening for human papillomavirus (HPV); Screening for STDs (sexually transmitted diseases); Depression, unspecified depression type; History of pulmonary embolism; Supervision of other high risk pregnancies, first trimester; History of shoulder dystocia in prior ; History of depression Start: 02-26-2024 End: 02-26-2024 ambulatory Rachell Amador STEAM FINISHER.SERVICE LEARNING COORDINATOR Work Phone: [facility] Comment on above: ER F/U ([facility] 02/18/2024) Start: 02-19-2024 End: 02-19-2024 ambulatory Mary Jo Barnett MD Work Phone: OB/Gynecology Comment on above: ED visit 02/18/24 Start: 02-18-2024 End: 02-18-2024 Emergency department patient visit RACHELL AMADOR [facility] Emergency Medicine Comment on above: Urinary tract infect ion in mother during first trimester of ([facility]-H[facility]) (Primary Dx); Hypoglycemia; Nausea vomiting and diarrhea Start: 01-27-2024 End: 01-27-2024 Office outpatient visit 25 minutes Raimro Hugo MD Work Phone: [facility] Building 3 Comment on above: SVT (supraventricula r tachycardia) ([facility]) (Primary Dx); Atrial fibrillation, unspecified type (Multi); Palpitations Start: 01-27-2024 End: 01-27-2024 ambulatory RAMIRO HUGO [facility] Start: 12-26-2023 End: 12-26-2023 ambulatory RACHELL AMADOR Facility:[facility] Start: 12-26-2023 Encounter for genera l adult medical examination without abnormal findings RACHELL AMADOR [facility] Start: 12-26-2023 End: 12-26-2023 Patient encounter procedure Rachell Amador STEAM FINISHER.SERVICE LEARNING COORDINATOR Work Phone: [facility] Comment on above: Well adult exam (Tania miki Dx); Paroxysmal SVT (supraventricular tachycardia) (HCC); Palpitations Start: 12-26-2023 End: 12-26-2023 Patient encounter status Rachell Amador STEAM FINISHER.SERVICE LEARNING COORDINATOR Work Phone: [facility] Work Phone: Start: 12-10-2023 End: 12-10-2023 ambulatory NORBERT NORIEGA [facility] Ambulatory Start: 12-10-2023 End: 12-10-2023 Office outpatient visit 15 minutes Norbert Noriega MD Work Phone: [facility] Office Building Comment on above: Single subsegmental pulmonary embolism without acute cor pulmonale (Primary Dx); SVT (supraventricular tachycardia) ([facility]) Start: 11-24-2023 End: 11-24-2023 ambulatory SANDRA KELSEY Facility:[facility] Start: 11-24-2023 End: 11-24-2023 Patient encounter procedure Sandratevin SutherlandKelsey STEAM FINISHER.SERVICE LEARNING COORDINATOR Work Phone: OB/Gynecology Comment on above: Vaginal discharge (P rimary Dx) Start: 10-16-2023 End: 10-16-2023 ambulatory Faiza Mishra STEAM FINISHER.SERVICE LEARNING COORDINATOR Work Phone: Gastroenterology Comment on above: Diarrhea due to usha bsorption (Primary Dx); Status post laparoscopic cholecystectomy Start: 10-16-2023 End: 10-16-2023 Telemedicine consultation with patient Faiza Mishra STEAM FINISHER.SERVICE LEARNING COORDINATOR Work Phone: Gastroenterology Start: 10-03-2023 End: 10-03-2023 Subsequent hospital visit by physician Ramiro Hugo MD Work Phone: [facility] Comment on above: SVT (supraventricula r tachycardia) ([facility]) (Primary Dx); Palpitations Start: 09-29-2023 End: 09-29-2023 ambulatory MARY JO BARNETT Facility:[facility] Start: 09-29-2023 End: 09-29-2023 Patient encounter procedure Conor Duarte MD Work Phone: General Surgery Comment on above: Status post laparosc opic cholecystectomy (Primary Dx); Functional diarrhea Start: 09-26-2023 End: 09-26-2023 ambulatory [facility] Start: 09-23-2023 End: 09-23-2023 [facility] Facility:[facility] Start: 09-23-2023 End: 09-23-2023 Patient encounter procedure Mary Jo Barnett MD Work Phone: OB/Gynecology Comment on above: Post-operative state (Primary Dx); Functional diarrhea Start: 09-18-2023 End: 09-18-2023 Patient encounter procedure Barbi Tian APRN.SERVICE LEARNING COORDINATOR Work Phone: OB/Gynecology Comment on above: Post-op pain (Primar y Dx); Constipation, unspecified constipation type; Excessive bleeding in premenopausal period Start: 09-17-2023 ambulatory Mary Jo Barnett MD Work Phone: OB/Gynecology Comment on above: Incision sites Start: 09-16-2023 Telephone encounter Mary Jo Barnett MD Work Phone: OB/Gynecology Comment on above: Post Op Start: 09-15-2023 End: 09-15-2023 ambulatory [facility] Facility:[facility] Start: 09-12-2023 End: 09-12-2023 Patient encounter procedure Mary Jo Barnett MD Work Phone: OB/Gynecology Comment on above: Malpositioned intrau terine device (IUD), sequela (Primary Dx); Pre-op exam Start: 09-12-2023 End: 09-12-2023 Preprocedural examination done Mary Jo Barnett MD Work Phone: [facility] Start: 09-10-2023 Refill Sandra Cole APRN.SERVICE LEARNING COORDINATOR Work Phone: OB/Gynecology Comment on above: Med Change Request Start: 09-03-2023 End: 09-03-2023 ambulatory [facility] Start: 09-02-2023 Telephone encounter Joyce isaac PA-C Work Phone: Pre Anesthesia Comment on above: Preparations For José Miguel pa Start: 09-01-2023 End: 09-01-2023 PAT Pacc [place] [facility] Work Phone: Pre Anesthesia Comment on above: Preoperative examina tion (Primary Dx); Single subsegmental pulmonary embolism without acute cor pulmonale (HCC); Vapes nicotine containing substance; Marijuana use; Generalized anxiety disorder; Depression, unspecified depression type; Paroxysmal SVT (supraventricular tachycardia) (HCC) Start: 09-01-2023 End: 09-01-2023 Preprocedural examination done [facility] [place] [facility] Work Phone: [facility] Work Phone: Start: 08-26-2023 Telephone encounter Rachell Amador APRN.CNP Work Phone: [facility] Comment on above: Results Start: 08-25-2023 End: 08-25-2023 Subsequent hospital visit by physician Edwar/Pulm Lab [facility] Comment on above: Paroxysmal SVT (supr aventricular tachycardia) (HCC) [I47.10] Start: 08-21-2023 End: 08-21-2023 Office outpatient new 60 minutes Ramiro Hugo MD Work Phone: [facility] Comment on above: Pulmonary embolism ( Multi) (Primary Dx); SVT (supraventricular tachycardia) (CMS-HCC); Palpitations Start: 08-21-2023 End: 08-21-2023 ambulatory [facility] Ambulatory Start: 08-20-2023 End: 08-20-2023 Subsequent hospital visit by physician Joseluis [facility] [employer] Work Phone: Radiology Comment on above: Malpositioned IUD, s equela [T83.32XS] Start: 08-20-2023 End: 08-20-2023 Patient encounter procedure Mary Jo Barnett MD Work Phone: OB/Gynecology Comment on above: Pelvic pain in femal e (Primary Dx); Malpositioned IUD, sequela Start: 08-19-2023 End: 08-19-2023 Patient encounter procedure Sandra Cole STEAM FINISHER.SERVICE LEARNING COORDINATOR Work Phone: OB/Gynecology Comment on above: Encounter for IUD re moval (Primary Dx); Malpositioned intrauterine device (IUD), initial encounter Start: 08-19-2023 End: 08-19-2023 ambulatory [facility] OB/Gynecology Start: 08-19-2023 End: 08-19-2023 Patient encounter procedure [employer] [facility] [facility] OB/Gynecology Start: 08-19-2023 Telephone encounter Sandra mcmahan STEAM FINISHER.SERVICE LEARNING COORDINATOR Work Phone: OB/Gynecology Comment on above: Results Start: 08-18-2023 End: 08-18-2023 Patient encounter procedure Sandra Cole STEAM FINISHER.SERVICE LEARNING COORDINATOR Work Phone: OB/Gynecology Comment on above: Pelvic pain in femal e (Primary Dx); Intrauterine contraceptive device threads lost, initial encounter; Irregular bleeding Start: 08-17-2023 Refill Rachell fajardo APRN.SERVICE LEARNING COORDINATOR Work Phone: [facility] Comment on above: Refill Request Start: 08-07-2023 Refill Dipti Freed DO Work Phone: Psychiatry Comment on above: Med Change Request Start: 07-31-2023 End: 07-31-2023 Patient encounter procedure Rachell Amador STEAM FINISHER.SERVICE LEARNING COORDINATOR Work Phone: [facility] Comment on above: Paroxysmal SVT (supr aventricular tachycardia) (HCC) (Primary Dx); Palpitations; Single subsegmental pulmonary embolism without acute cor pulmonale (HCC); On continuous oral anticoagulation; Engages in vaping Start: 07-24-2023 End: 07-24-2023 Patient encounter procedure Gino Valero STEAM FINISHER.INGRIDM Work Phone: OB/Gynecology Comment on above: Surveillance of prev iously prescribed intrauterine contraceptive device (Primary Dx) Start: 07-15-2023 End: 07-15-2023 Patient encounter procedure Chantelle Low PA-C Work Phone: Pulmonary Medicine Comment on above: Vaping nicotine depe ndence, non-tobacco product (Primary Dx) Start: 07-14-2023 End: 07-14-2023 [facility] Dipti Freed DO Work Phone: Psychiatry Comment on above: Panic disorder witho ut agoraphobia (Primary Dx); anxiety Start: 07-09-2023 End: 07-09-2023 ambulatory [facility] Start: 07-09-2023 End: 07-09-2023 Subsequent hospital visit by physician Tylor Edwards 1 [facility] Comment on above: Single subsegmental pulmonary embolism without acute cor pulmonale (Multi); Other pulmonary embolism without acute cor pulmonale (Multi) Palpitations Start: 07-08-2023 End: 07-08-2023 Postop follow up visit related to original px Alla Llanes MD Work Phone: [facility] Comment on above: Postoperative visit (Primary Dx) Start: 07-04-2023 Refill Dipti Freed DO Work Phone: Psychiatry Comment on above: Med Change Request Start: 07-02-2023 End: 07-02-2023 Patient encounter procedure Mitra Reed APRN.CNP Work Phone: [facility] Comment on above: Nausea and vomiting, unspecified vomiting type (Primary Dx); S/P cholecystectomy; Single subsegmental pulmonary embolism without acute cor pulmonale (HCC); Vapes nicotine containing substance Start: 07-02-2023 End: 07-02-2023 ambulatory MIKI JARAMILLO [facility] Start: 07-02-2023 End: 07-02-2023 Office outpatient new 60 minutes Miki Jaramillo MD Work Phone: [facility] Comment on above: Single subsegmental pulmonary embolism without acute cor pulmonale (Multi) Start: 06-26-2023 End: 06-26-2023 Patient encounter procedure Prabhu Ortez MD Work Phone: OB/Gynecology Comment on above: Abnormal uterine ble eding (AUB) (Primary Dx); Encounter for IUD insertion Start: 06-25-2023 End: 06-25-2023 Office outpatient new 45 minutes Norbert Noriega MD Work Phone: [facility] Office Building Comment on above: Palpitations (Primar y Dx); Single subsegmental pulmonary embolism without acute cor pulmonale (Multi); Smoking addiction Start: 06-24-2023 End: 06-24-2023 [facility] Comment on above: Dysfunctional uterin e bleeding (Primary Dx); Post-op pain Start: 06-24-[address] [facility] Comment on above: Patient Update Start: 06-24-2023 Patient encounter procedure Eugene Louie RN NURSE OVERHEAD CLEANER MAINTAINER Comment on above: Clinical Update Start: 06-24-2023 Telephone encounter Prabhu brizuela MD Work Phone: OB/Gynecology Comment on above: Heavy Bleeding Start: 06-22-2023 End: 06-22-2023 Emergency department patient visit RACHELL AMADOR Facility:[facility] Start: 06-22-2023 End: 06-22-2023 Emergency department patient visit [facility] Work Phone: Start: 06-21-2023 End: 06-21-2023 Subsequent hospital visit by physician Tylor Suv1 [employer] [facility] Comment on above: Arrived Start: 06-21-2023 End: 06-21-2023 ambulatory SATURNINO VELÁZQUEZ [facility] Start: 06-21-2023 End: 06-21-2023 Emergency department patient visit Saturnino Velázquez DO Work Phone: [facility] Emergency Medicine Comment on above: Single subsegmental pulmonary embolism without acute cor pulmonale (Multi) (Primary Dx) Start: 06-19-2023 End: 06-20-2023 Evaluation and management of inpatient Saturnino Velázquez DO Work Phone: [facility] 3 Comment on above: Acute post-operative pain (Primary Dx); Status post cholecystectomy; Vomiting and diarrhea Start: 06-18-2023 End: 06-18-2023 Emergency department patient visit Saturnino Velázquez DO Work Phone: [facility] Emergency Medicine Comment on above: Postoperative pain ( Primary Dx) Start: 06-17-2023 End: 06-17-2023 Subsequent hospital visit by physician Alla Llanes MD Work Phone: [facility] [place] Comment on above: Post-operative pain (Primary Dx); Symptomatic cholelithiasis Start: 06-12-2023 End: 06-12-2023 [facility] Dipti Freed DO Work Phone: Psychiatry Comment on above: Post depressi on (Primary Dx); Panic disorder without agoraphobia; PTSD (post-traumatic stress disorder) Start: 06-05-2023 Refill Dipti Freed DO Work Phone: Psychiatry Comment on above: Med Change Request Start: 06-04-2023 ambulatory [facility] Start: 06-03-2023 End: 06-03-2023 Office outpatient visit 25 minutes Alla Llanes MD Work Phone: [facility] Comment on above: Symptomatic cholelit hiasis (Primary Dx) Start: 06-03-2023 End: 06-03-2023 Patient encounter procedure Rachell Amador APRN.SERVICE LEARNING COORDINATOR Work Phone: [facility] Comment on above: Pain in the coccyx ( Primary Dx); Tailbone injury, initial encounter; Depression, unspecified depression type; Generalized anxiety disorder Start: 05-13-2023 End: 05-13-2023 [facility] Dipti Freed DO Work Phone: Psychiatry Comment [...] and examination Start: 12-16-2022 ambulatory Jaquelin Hi APRN.CNM Work Phone: OB/Gynecology Comment on above: Ob Delivery Note Start: 12-13-2022 ambulatory [facility] [place] Comment on above: Population Health Na vigation Outreach (Peds/OB) Start: 12-03-2022 End: 12-03-2022 Patient encounter procedure Prabhu Ortez MD Work Phone: OB/Gynecology Comment on above: Encounter for superv ision of normal first in third trimester (Primary Dx); 36 weeks gestation of Start: 11-25-2022 Telephone encounter Tire Recapper RN Obstetrics/Gynecology Comment on above: PRAF Start: 11-19-2022 End: 11-19-2022 Patient encounter procedure rPabhu Ortez MD Work Phone: OB/Gynecology Comment on above: care, subse quent in third trimester (Primary Dx); 34 weeks gestation of Start: 11-18-2022 End: 11-18-2022 Patient encounter procedure Jaquelin Hi APRN.CNM Work Phone: OB/Gynecology Comment on above: with prena lulu care elsewhere in third trimester (Primary Dx); 34 weeks gestation of Start: 10-24-2022 Telephone encounter Lianet chacon APRN.SERVICE LEARNING COORDINATOR Work Phone: Obstetrics/Gynecology Comment on above: Forms (praf) Start: 10-10-2022 ambulatory Lianet Heller APRN.SERVICE LEARNING COORDINATOR Work Phone: OB/Gynecology Comment on above: Received Outside [facility] Records Start: 10-09-2022 End: 10-09-2022 ambulatory [facility] Work Phone: Start: 10-09-2022 End: 10-09-2022 Patient encounter procedure [facility] [place] 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 Start: 09-24-2022 End: 09-24-2022 ambulatory [facility] Work Phone: Start: 09-24-2022 End: 09-24-2022 Patient encounter procedure [facility] [place] 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 Start: 08-29-2022 End: 08-29-2022 Emergency department patient visit [facility] Work Phone: Start: 08-17-2022 End: 08-17-2022 Emergency department patient visit [facility] Work Phone: Start: 07-12-2022 End: 07-12-2022 Emergency department patient visit Mauricio Reyes [facility] Emergency 06 Start: 05-24-2022 End: 05-24-2022 Patient encounter procedure [facility] [place] 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 Start: 04-19-2022 End: 04-19-2022 ambulatory [facility] Work Phone: Start: 04-19-2022 End: 04-19-2022 Patient encounter procedure [facility] [place] 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 Start: 02-07-2022 End: 02-07-2022 ambulatory [facility] Work Phone: [facility] Work Phone: Start: 02-07-2022 End: 02-07-2022 Patient encounter procedure [facility] [place] 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 Start: 12-12-2021 End: 12-12-2021 ambulatory [facility] Work Phone: Start: 12-12-2021 End: 12-12-2021 Patient encounter procedure [facility], [place] 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 Start: 12-05-2021 End: 12-05-2021 ambulatory [facility] Work Phone: Start: 12-05-2021 End: 12-05-2021 Patient encounter procedure [facility] Services/Neurology Start: 12-05-2021 Non-patient / Non-visit [facility] Work Phone: [facility] Start: 12-01-2021 End: 12-01-2021 ambulatory [facility] Work Phone: Start: 12-01-2021 End: 12-01-2021 Patient encounter procedure [facility] Start: 11-12-2021 End: 11-12-2021 Patient encounter procedure Leeann Ascencio STEAM FINISHER.SERVICE LEARNING COORDINATOR Work Phone: [place] [facility] Comment on above: Burning with urinati on (Primary Dx); Exposure to HIV; Acute vaginitis Start: 10-31-2021 End: 10-31-2021 ambulatory [facility] Work Phone: Start: 10-31-2021 End: 10-31-2021 [facility] [place] 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 Start: 08-14-2021 End: 08-14-2021 Patient encounter procedure Steven Rojas APRN.SERVICE LEARNING COORDINATOR Work Phone: [place] [facility] Comment on above: Screening for STD (s exually transmitted disease) (Primary Dx) Start: 05-24-2021 End: 05-24-2021 Patient encounter procedure [facility], [place] 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 Start: 05-17-2021 End: 05-17-2021 Patient encounter procedure [facility], [place] 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 Start: 03-21-2021 End: 02-09-2022 Emergency department patient visit Tatyana Michaels [facility] Emergency 05 Start: 08-07-2017 Ambulatory KRISTELDEVENDRA COHEN [facility] Start: 07-30-2017 Ambulatory KRISTELDEVENDRA COHEN [facility] Start: 07-29-2017 Ambulatory KRISTELDEVENDRA COHEN [facility] Start: 07-24-2017 Ambulatory KRISTEL Jesusita COHEN [facility] Start: 07-11-2017 Ambulatory KRISTEL [facility]ita [facility] Start: 07-10-2017 Ambulatory KRISTEL Jesusita COHEN [facility] Start: 07-01-2017 End: 07-01-2017 Ambulatory [facility] Start: 06-19-2017 Ambulatory KRISTELDEVENDRA COHEN [facility] Start: 06-03-2017 Ambulatory KRISTELDEVENDRA COHEN [facility] Start: 05-01-2017 Ambulatory KRISTELDEVENDRA COHEN [facility] Start: 04-15-2017 Ambulatory KRISTELDEVENDRA COHEN [facility] Start: 04-08-2017 Ambulatory KRISTELDEVENDRA COHEN [facility] Start: 03-10-2017 End: 03-11-2017 Emergency department patient visit ORI Baker [facility] Start: 02-27-2017 Ambulatory KRISTELDEVENDRA COHEN [facility] Start: 02-27-2017 Ambulatory [facility]STEL COHEN [facility] Start: 01-15-2017 Ambulatory [facility] Start: 12-30-2016 End: 12-31-2016 Emergency department patient visit [facility] Start: 11-19-2016 End: 11-19-2016 Emergency department patient visit Jessica Patty Miranda Facility:[place] Start: 09-13-2016 End: 09-13-2016 Emergency department patient visit MEGAN Carr [facility] Procedures Date Procedure Procedure Detail Performing Clinician Start: 09-09-2024 Culture bacterial quanttative colony count urine Rio Kelly DO Work Phone: Start: 09-09-2024 RAPID TOX SCREEN WITH RELEX Rio Kelly DO Work Phone: Start: 09-09-2024 Urinalysis, reagent strip without microscopy Rio Kelly DO Work Phone: Start: 09-09-2024 Measurement of pH in vaginal fluid specimen using nitrazine yellow for detection of rupture of amniotic membrane Rachell Amador FLESHING MACHINE OPERATOR-C Work Phone: Comment on above: Amniotic fluid not present indicates No Rupture of FetalMembranes at time of specimen collection. Start: 09-08-2024 Urnls dip stick/tablet rgnt non-auto w/o micrscp Gino Valero APRN.CNM Work Phone: Start: 09-07-2024 Urnls dip stick/tablet reagent auto microscopy Rachellsagar Amador FLESHING MACHINE OPERATOR-C Work Phone: Start: 09-07-2024 Urnls dip stick/tablet rgnt non-auto w/o micrscp Yamila Ballard MD Work Phone: Start: 09-07-2024 Us preg uterus after 1st trimest 02/10 gestation Prabhu Ortez MD Work Phone: Start: 08-03-2024 Estimated creatinine clearance Rachell Amador FLESHING MACHINE OPERATOR-C Work Phone: Start: 08-03-2024 Measurement of pH in vaginal fluid specimen using nitrazine yellow for detection of rupture of amniotic membrane Rachell Amador FLESHING MACHINE OPERATOR-C Work Phone: Comment on above: Amniotic fluid not present indicates No Rupture of FetalMembranes at time of specimen collection. Start: 08-03-2024 Ecg routine ecg w/least 12 lds w/i&r Ramiro Hugo MD Work Phone: Start: 07-27-2024 Antibody screen RACHELL AMADOR Comment on above: Order Comment: Specimen Type: BLOOD SPEC IMEN Ordering Facility: [facility] Address: [address] [place] [address] Performed By: #### [id number], [id number], [id number] #### [facility] CLIA [id number] [address] [place] [address] [place] Start: 06-01-2024 Us preg uterus after 1st trimest 02/10 gestation Jaquelin Hi APRN.CNM Work Phone: Start: 04-07-2024 Us preg uterus after 1st trimest 02/10 gestation Jaquelin Hi APRN.CNM Work Phone: Start: 04-07-2024 Antibody screen RACHELL COLVINRODRIGO Comment on above: Order Comment: Specimen Type: BLOOD SPEC IMEN Ordering Facility: [facility] Address: [address] [place] [address] Performed By: #### [id number], [id number], [id number] #### [facility] CLIA [id number] [address] [place] [address] [place] [address] [place] Start: 03-09-2024 BACTERIAL VAGINOSIS NAAT Jaquelin MIRELES.CNM Work Phone: Start: 03-09-2024 Iadna chlamydia trachomatis amplified probe tq Jaquelin Hi APRN.CNM Work Phone: Start: 03-09-2024 Us uterus limited /> fetuses Jaquelin Hi APRN.CNM Work Phone: Start: 03-09-2024 Microscopic observation [Identifier] in Cervix by Cyto stain Ramiro Hugo MD Work Phone: Start: 02-18-2024 Glucose quantitative blood xcpt reagent strip Interface Unspecifiedprovider Work Phone: Start: 02-18-2024 Glucose quantitative blood xcpt reagent strip Interface Unspecifiedprovider Work Phone: Start: 02-18-2024 Us preg uterus real time w/image dcmtn transvag Eugene Mccormick STEAM FINISHER-SERVICE LEARNING COORDINATOR Work Phone: Start: 02-18-2024 Blood typing serologic rh (d) Eugene Mccormick STEAM FINISHER-SERVICE LEARNING COORDINATOR Work Phone: Start: 02-18-2024 Comprehensive metabolic panel Eugene Mccormick STEAM FINISHER-SERVICE LEARNING COORDINATOR Work Phone: Start: 02-18-2024 Urinalysis microscopic panel - Urine Qualitative by Automated Eugene Mccormick STEAM FINISHER-SERVICE LEARNING COORDINATOR Work Phone: Start: 02-18-2024 Urine test visual color cmprsn meths Eugene Mccormick STEAM FINISHER-SERVICE LEARNING COORDINATOR Work Phone: Start: 02-18-2024 Urnls dip stick/tablet reagent auto microscopy Eugene Mccormick STEAM FINISHER-SERVICE LEARNING COORDINATOR Work Phone: Start: 01-27-2024 Ecg routine ecg [...] lds trcg only w/o i&r Ida Hutson STEAM FINISHER-SERVICE LEARNING COORDINATOR Work Phone: Start: 08-21-2023 Ecg routine ecg w/least 12 lds w/i&r Ramiro Hugo MD Work Phone: Start: 08-20-2023 UA DIP,URINE HCG (POC) Mary Jo Eastman MD Work Phone: Start: 08-19-2023 Us pelvic nonobstetric real-time image complete Sandra Kelsey STEAM FINISHER.SERVICE LEARNING COORDINATOR Work Phone: Start: 07-09-2023 Dup-scan xtr veins [...] W Reflex Culture panel - Urine Megan [facility] Work Phone: Start: 06-24-2023 Urnls dip stick/tablet reagent auto microscopy Megan [facility] Work Phone: Start: 06-24-2023 Ct abdomen & [...] Ct abdomen & pelvis w/contrast material Eugene DUFF-C Work Phone: Start: 06-19-2023 Basic metabolic 2000 [...] 06-19-2023 Basic metabolic panel calcium total Eugene Carcamo PA-C Work Phone: Start: 06-18-2023 CBC W Auto [...] 11-18-2022 URINE OB DIP B/O Jaquelin Hi APRN.C [place] Work Phone: Start: 09-24-2022 CBC panel [...] stick/tablet rgnt auto w/o microscopy Leeann Ascencio STEAM FINISHER.SERVICE LEARNING COORDINATOR Work Phone: Start: 08-14-2021 End: 08-14-2021 Urnls dip stick/tablet rgnt auto w/o microscopy Steven Rojas APRN.SERVICE LEARNING COORDINATOR Work Phone: Start: 08-21-2018 Adult depression screening assessment Steven Rojas STEAM FINISHER.SERVICE LEARNING COORDINATOR Work Phone: History of cholecystectomy Status post cholecystectomy Saturnino Velázquez DO Work Phone: History of cholecystectomy S/P cholecystectomy Mitra Gayla Reed STEAM FINISHER.SERVICE LEARNING COORDINATOR Work Phone: History of cholecystectomy Status post laparoscopic cholecystectomy Conor Duarte MD Work Phone: History of cholecystectomy Status post laparoscopic cholecystectomy Faiza Mishra STEAM FINISHER.SERVICE LEARNING COORDINATOR Work Phone: History of cholecystectomy Status post laparoscopic cholecystectomy Rachell Amador FLESHING MACHINE OPERATOR-C Work Phone: Plan of Treatment Date Care Activity Detail Author Start: 2077 RSV High Risk: (Elderly (60+) or Population) (1 - 1-dose 75+ series) RSV High Risk: (Elderly (60+) or Population) (1 - 1-dose 75+ series) [facility] Start: 2077 RSV VACCINE (1 - 1-dose 75+ series) RSV VACCINE (1 - 1-dose 75+ series) [facility] Start: 2052 Zoster Vaccines (1 of 2) Zoster Vaccines (1 of 2) [facility] Start: 07-27-2034 DTaP/Tdap/Td Vaccines (11 - Td or Tdap) DTaP/Tdap/Td Vaccines (11 - Td or Tdap) [facility] Start: 07-27-2034 Tetanus vaccination TETANUS [facility] Start: 07-27-2034 Urine microalbumin profile DTaP,Tdap,Td Vaccine (11 - Td or Tdap) [facility] Start: 11-05-2032 DTaP/Tdap/Td Vaccines (10 - Td or Tdap) DTaP/Tdap/Td Vaccines (10 - Td or Tdap) [facility] Start: 11-05-2032 Urine microalbumin profile [facility] Start: 07-11-2027 Urine microalbumin profile [facility] Start: 03-09-2027 Screening for malignant neoplasm of cervix [facility] Start: 04-07-2025 Diabetes mellitus screening Diabetes Screening [facility] Start: 01-28-2026 GC (Gonorrhea) Screening (18-24) GC (Gonorrhea) Screening (18-24) [facility] Start: 03-09-2025 Screening for Chlamydia trachomatis Chlamydia Screening (18-24) [facility] Start: 02-17-2025 Diabetes mellitus screening Diabetes Screening [facility] Start: 12-25-2024 Meningococcal B Vaccine (1 of 2 - Standard) Meningococcal B Vaccine (1 of 2 - Standard) [facility] Comment on above: Postponed from 2018 (Declined at t his time) Start: 12-25-2024 Meningococcal B Vaccine: Consider Based On Risk (1 of 2 - Patient Seeks Protection) Meningococcal B Vaccine: Consider Based On Risk (1 of 2 - Patient Seeks Protection) [facility] Comment on above: Postponed from 2018 (Declined at t his time) Start: 11-23-2024 End: 11-23-2024 Patient encounter procedure 11/23/2024 3:30 PM EDT Office Visit [facility] Office Building [address] [facility] 2nd [place] [address] Ramiro Hugo MD [address] [facility] 3, [address] [address] [facility] Start: 11-23-2024 GC (Gonorrhea) Screening (18-24) GC (Gonorrhea) Screening (18-24) [facility] Start: 11-23-2024 Screening for Chlamydia trachomatis Chlamydia Screening (18-24) [facility] Start: 10-14-2024 End: 10-14-2024 Patient encounter procedure 10/14/2024 9:20 AM EDT Office Visit OB/Gynecology [address] [place], [place] [phone] Yamila Ballard MD [address] [place], [place] [phone] 1 week incision check OB/Gynecology Comment on above: 1 week incision check Start: 10-11-2024 Influenza vaccination [facility] Start: 10-07-2024 ambulatory Ambulatory Facility:[facility] Start: 10-02-2024 Diabetes mellitus screening Diabetes Screening [facility] Start: 2024 End: 2024 Patient encounter procedure 2024 10:10 AM EDT Routine Office Visit OB/Gynecology [address] [place] [address] Yamila Ballard MD [address] [place] [address] OB Pre Op C/S 10/07 @ [facility] OB/Gynecology Comment on above: OB Pre Op C/S 10/07 @ [facility] Start: 09-17-2024 End: 09-17-2024 Patient encounter procedure 09/17/2024 10:00 AM EDT Routine Office Visit OB/Gynecology [address] [place] [id number] Jaquelin Hi APRN.[facility] [address] [place] [address] OB OB/Gynecology Comment on above: OB Start: 09-16-2024 End: 09-16-2024 Follow-up encounter 09/16/2024 11:00 AM EDT [facility] BLOOD MANAGEMENT [address] [place] [address] Nayely Gil PA-C [address] [place], [place] [phone] 6 week follow-up BLOOD MANAGEMENT Comment on above: 6 week follow-up Start: 09-13-2024 End: 12-13-2024 CBC W Auto Differential panel - Blood COMPLETE BLOOD COUNT AND DIFFERENTIAL Lab Routine Maternal iron deficiency anemia complicating , third trimester (HCC) Expected: 09/13/2024 (Approximate), Expires: 12/13/2024 [facility] Work Phone: Comment on above: Expected: 09/13/2024 (Approximate), Expi res: 12/13/2024 Start: 09-13-2024 End: 12-13-2024 Ferritin [Mass/volume] in Serum or Plasma FERRITIN Lab Routine Maternal iron deficiency anemia complicating , third trimester (HCC) Expected: 09/13/2024 (Approximate), Expires: 12/13/2024 [facility] Comment on above: Expected: 09/13/2024 (Approximate), Expi res: 12/13/2024 Start: 09-13-2024 End: 12-13-2024 Iron and Iron binding capacity panel - Serum or Plasma IRON AND TIBC Lab Routine Maternal iron deficiency anemia complicating , third trimester (HCC) Expected: 09/13/2024 (Approximate), Expires: 12/13/2024 [facility] Comment on above: Expected: 09/13/2024 (Approximate), Expi res: 12/13/2024 Start: 09-13-2024 End: 09-13-2024 ambulatory 09/13/2024 12:00 PM EDT Results Only [facility] [address] [place] [id number] [facility] Start: 09-09-2024 Nonstress test [facility] Start: 09-09-2024 Obstetric monitoring [facility] Start: 09-09-2024 [facility] Start: 09-09-2024 Vital signs measurements [facility] Start: 09-09-2024 Patient discharge [facility] Start: 09-08-2024 [facility] Start: 09-07-2024 Nonstress test [facility] Start: 09-07-2024 Obstetric monitoring [facility] Start: 09-07-2024 Vital signs measurements [facility] Start: 09-07-2024 [facility] Start: 09-07-2024 End: 09-07-2024 Patient encounter procedure 09/07/2024 2:30 PM EDT Routine Office Visit OB/Gynecology [address] [place], [place] [address] Chantelle Mann MD [address] [place] [address] Growth/OB OB/Gynecology Comment on above: Growth/OB Start: 09-07-2024 Bacteria identified in Urine by Culture Urine Culture [facility] Start: 09-07-2024 Urine culture [facility] Start: 09-07-2024 End: 09-07-2024 Patient encounter procedure OB/Gynecology Comment on above: OB Growth Start: 09-04-2024 End: 09-04-2024 ambulatory 09/04/2024 11:30 AM EDT Results Only [facility] [address] [place] [address] [facility] Start: 08-24-2024 End: 08-24-2025 OBSTETRIC ULTRASOUND WHI OBSTETRIC ULTRASOUND WHI Anc Imaging Routine History of shoulder dystocia in prior Expected: 08/24/2024, Expires: 08/24/2025 [facility] Work Phone: Comment on above: Expected: 08/24/2024, Expires: Start: 08-24-2024 End: 08-24-2024 ambulatory 08/24/2024 1:30 PM EDT [facility] [address] [place] [address] Louise Muñoz, JF INFUSION Comment on above: Louise Muñoz AJ Start: 08-24-2024 End: 08-24-2024 Patient encounter procedure 08/24/2024 10:30 AM EDT Routine Office Visit OB/Gynecology [address] [place] [address] Prabhu Ortez MD [address] [place] [address] OB OB/Gynecology Comment on above: OB Start: 08-20-2024 End: 08-20-2024 ambulatory 08/20/2024 2:30 PM EDT Infusion [facility] [address] [place] [address] Louise Muñoz AJ INFUSION Comment on above: Louise Muñoz AJ Start: 08-17-2024 End: 08-17-2024 ambulatory 08/17/2024 2:30 PM EDT Infusion Center [facility] [address] [place] [address] Louise Muñoz AJ INFUSION Comment on above: Louise Muñoz AJ Start: 08-17-2024 GC (Gonorrhea) Screening (18-) GC (Gonorrhea) Screening (18-24) [facility] Start: 08-17-2024 Screening for Chlamydia trachomatis Chlamydia Screening (18) [facility] Start: 08-12-2024 End: 08-12-2024 ambulatory 08/12/2024 2:30 PM EDT Infusion Center [facility] [address] [place] [address] Louise Muñoz AJ INFUSION Comment on above: Louise Muñoz AJ Start: 08-10-2024 End: 08-10-2024 Patient encounter procedure 08/10/2024 11:20 AM EDT Routine Office Visit OB/Gynecology [address] [place], [place] [phone] Prabhu Ortez MD [address] [place], [place] [phone] OB OB/Gynecology Comment on above: OB Start: 08-09-2024 Influenza vaccination Influenza Vaccine (#1) [facility] Comment on above: Postponed from 10/12/2023 (Declined at t his time) Start: 08-05-2024 End: 08-05-2024 Patient encounter procedure 08/05/2024 11:00 AM EDT [facility] BLOOD MANAGEMENT [address] [place] [address] Nayely Gil PA-C [address] [place], [place] [address] new anemia BLOOD MANAGEMENT Comment on above: new anemia Start: 08-03-2024 Nonstress test [facility] Start: 08-03-2024 Obstetric monitoring [facility] Start: 08-03-2024 Vital signs measurements [facility] Start: 08-03-2024 [facility] Start: 08-03-2024 End: 08-03-2024 Patient encounter procedure 08/03/2024 11:45 AM EDT Office Visit [facility] Medical Office Building [address] [place] [address] Ramiro Hugo MD [address] [facility] [address], [address] [place] [address] [facility] Medical Office [facility] Start: 08-03-2024 Patient discharge [facility] Start: 06-29-2024 End: 06-29-2024 Patient encounter procedure 06/29/2024 1:15 PM EDT Routine Office Visit OB/Gynecology [address] [place] [address] Jaquelin Hi APRN.CNM [address] [place] [address] OB OB/Gynecology Comment on above: OB Start: 06-25-2024 GC (Gonorrhea) Screening (18-24) GC (Gonorrhea) Screening (18-24) [facility] Start: 06-25-2024 Screening for Chlamydia trachomatis Chlamydia Screening (18-24) [facility] Start: 06-01-2024 End: 06-01-2024 Patient encounter procedure [facility] Comment on above: Anatomy Scan OB Routine Start: 05-04-2024 End: 05-04-2024 Patient encounter procedure 05/04/2024 2:30 PM EDT Routine Office Visit OB/Gynecology [address] [place] [address] Jaquelin Hi APRN.CNM [address] [place] [address] OB Routine OB/Gynecology Comment on above: OB Routine Start: 04-07-2024 End: 04-07-2024 Patient encounter procedure Maternal Medicine Comment on above: Nuchal OB Routine Start: 04-07-2024 End: 07-07-2024 CARRIER SCREEN, STANDARD [facility] Comment on above: Expected: 04/07/2024, Expires: Start: 04-07-2024 End: 07-07-2024 Chromosome 21 trisomy [Presence] in Blood or Tissue by Cytogenetics [facility] Comment on above: Expected: 04/07/2024, Expires: Start: 04-07-2024 End: 07-07-2024 HEMOGLOBIN EVALUATION CASCADE [facility] Work Phone: Comment on above: Expected: 04/07/2024, Expires: Start: 03-17-2024 End: 03-17-2024 FQHC visit new patient 03/17/2024 1:00 PM EST Visit (SP) Office Hematology/Oncology [address] [place] [address] Jimmy Carbajal DO [address] [place] [address] New patient Hematology/Oncology Comment on above: New patient Start: 03-09-2024 End: 06-08-2024 ANEMIA REFLEX PANEL ANEMIA REFLEX PANEL Lab Routine with uncertain dates, antepartum Expected: 03/09/2024, Expires: 06/08/2024 [facility] Work Phone: Comment on above: Expected: 03/09/2024, Expires: Start: 03-09-2024 End: 06-08-2024 Hemoglobin A1c in Blood HEMOGLOBIN A1C Lab Routine with uncertain dates, antepartum Expected: 03/09/2024, Expires: 06/08/2024 [facility] Comment on above: Expected: 03/09/2024, Expires: Start: 03-09-2024 End: 06-08-2024 Hepatitis B virus surface Ag [Presence] in Serum HEPATITIS B SURFACE ANTIGEN Lab Routine with uncertain dates, antepartum Expected: 03/09/2024, Expires: 06/08/2024 [facility] Comment on above: Expected: 03/09/2024, Expires: Start: 03-09-2024 End: 06-08-2024 Hepatitis C virus Ab [Presence] in Serum HEPATITIS C ANTIBODY IA WITH CONFIRMATION Lab Routine with uncertain dates, antepartum Expected: 03/09/2024, Expires: 06/08/2024 [facility] Comment on above: Expected: 03/09/2024, Expires: Start: 03-09-2024 End: 06-08-2024 HIV 1+2 Ab [Presence] in Serum or Plasma by Immunoassay HIV 1/2 COMBO WITH REFLEX TO DIFFERENTIATION Lab Routine with uncertain dates, antepartum Expected: 03/09/2024, Expires: 06/08/2024 [facility] Comment on above: Expected: 03/09/2024, Expires: Start: 03-09-2024 End: 03-09-2025 OBSTETRIC ULTRASOUND WHI OBSTETRIC ULTRASOUND WHI Anc Imaging Routine with uncertain dates, antepartum Expected: 03/09/2024, Expires: 03/09/2025 [facility] Comment on above: Expected: 03/09/2024, Expires: Start: 03-09-2024 End: 06-08-2024 RUBELLA IGG ANTIBODY RUBELLA IGG ANTIBODY Lab Routine with uncertain dates, antepartum Expected: 03/09/2024, Expires: 06/08/2024 [facility] Comment on above: Expected: 03/09/2024, Expires: Start: 03-09-2024 End: 06-08-2024 SYPHILIS TREPONEMAL W/REFLEX SYPHILIS TREPONEMAL W/REFLEX Lab Routine with uncertain dates, antepartum Expected: 03/09/2024, Expires: 06/08/2024 [facility] Comment on above: Expected: 03/09/2024, Expires: Start: 03-09-2024 End: 06-08-2024 TYPE + SCREEN TYPE + SCREEN Blood Bank Routine with uncertain dates, antepartum Expected: 03/09/2024, Expires: 06/08/2024 [facility] Comment on above: Expected: 03/09/2024, Expires: Start: 03-09-2024 End: 03-09-2024 Patient encounter procedure 03/09/2024 1:00 PM EST Initial Office Visit OB/Gynecology [address] [place] [address] Jaquelin Hi APRN.CN [address] [place] [address] New OB LMP 01/06 OB/Gynecology Comment on above: New OB LMP 01/06 Start: 02-03-2024 End: 02-03-2024 Patient encounter procedure 02/03/2024 9:40 AM EST Office Visit OB/Gynecology [address] [place], [place] [address] Prabhu Ortez MD [address] [place] [address] ANNUAL OB/Gynecology Comment on above: ANNUAL Start: 01-27-2024 End: 01-27-2024 Patient encounter procedure 01/27/2024 11:00 AM EST Office Visit [facility] [address] [facility] [address] [place] [phone] Ramiro Hugo MD [address] [facility], [address] [place] [address] [facility] 3 Start: 12-26-2023 End: 12-26-2023 Patient encounter procedure 12/26/2023 10:00 AM EST Office Visit [facility] [address] [place] [address] Rachell Amador, STEAM FINISHER.SERVICE LEARNING COORDINATOR [address] [place] [address] [facility] Comment on above: [facility] Start: 12-10-2023 End: 12-10-2023 Patient encounter procedure 12/10/2023 1:15 PM EDT Office Visit [facility] Office Building [address] [place] [address] 2nd [place] [address] [place] [address], [address] [place] [address] [facility] Medical Office Building Start: 11-27-2023 End: 11-27-2023 Patient encounter procedure 11/27/2023 2:20 PM EDT Office Visit [facility] [address] [place] [address] Rachell Amador, STEAM FINISHER.SERVICE LEARNING COORDINATOR [address] [place] [address] [facility] Comment on above: [facility] Start: 11-05-2023 End: 11-05-2023 Patient encounter procedure 11/05/2023 11:00 AM EDT Office Visit [facility] [address] [address] Miki Jaramillo MD [address] [place], [place] [phone] [facility] Start: 10-16-2023 End: 10-16-2023 Admission to same day surgery center 10/16/2023 7:00 AM EDT [facility] Gastroenterology [address] [place] [address] Faiza Mishra, NOA.SERVICE LEARNING COORDINATOR [address] [place], [place] [id number] [facility] for that they can manage her diarrhea. Gastroenterology Comment on above: [facility] for that they can manage her diarrhea. Start: 10-12-2023 Covid-19 Vaccine ( season) Covid-19 Vaccine ( season) [facility] Start: 10-12-2023 Covid-19 Vaccine ( season) Covid-19 Vaccine ( season) [facility] Start: 10-12-2023 Influenza vaccination [facility] Start: 10-03-2023 End: 10-03-2023 Admission to same day surgery center 10/03/2023 8:00 AM EDT - 10/03/2023 12:00 PM EDT Surgery [facility] [address] [place] [phone] Ramiro Hugo MD [address] [facility] 3, [facility] [address] [place] [address] Ablation SVT (57039) [15872 (CPT )] [facility] Comment on above: Ablation SVT (83233) [80567 (CPT )] Start: 10-03-2023 Subsequent hospital visit by physician 10/03/2023 8:00 AM EDT Hospital Encounter [facility] [address] [place] [phone] Ramiro Hugo MD [address] [facility] 3, [facility] [address] [place], [place] [phone] SVT (supraventricular tachycardia) (CMS-HCC) [facility] Comment on above: SVT (supraventricular tachycardia) (CMS- HCC) Start: 09-29-2023 End: 09-29-2023 Patient encounter procedure 09/29/2023 2:30 PM EDT Office Visit General Surgery [address] [place], [place] [phone] Conor Duarte MD [address] [place], [place] [phone] Functional diarrhea General Surgery Comment on above: Functional diarrhea Start: 09-24-2023 End: 09-24-2023 Patient encounter procedure 09/24/2023 11:45 AM EDT Office Visit [address] 2nd [place] [address] [place] [address], [address] [place], [place] [phone] [facility] Start: 09-23-2023 Screening for malignant neoplasm of cervix [facility] Start: 09-15-2023 End: 09-15-2023 Admission to same day surgery center [facility] Comment on above: LAPAROSCOPY DIAGNOSTIC, Removal of IUD LAPAROSCOPY DIAGNOST IC Start: 09-15-2023 End: 09-15-2023 Laps abd prtm&omentum dx w/wo spec br/wa spx [facility] OR Start: 09-15-2023 End: 09-15-2023 Removal intrauterine device iud REMOVAL INTRAUTERINE DEVICE Malpositioned intrauterine device (IUD), sequela 09/15/2023 8:30 AM EDT ME OR Start: 09-15-2023 Subsequent hospital visit by physician [facility] Comment on above: Malpositioned intrauterine device (IUD), sequela [T83.32XS] Start: 09-12-2023 End: 09-12-2023 Patient encounter procedure 09/12/2023 10:40 AM EDT Office Visit OB/Gynecology [address] [place] [address] Mary Jo Chance MD [address] [place] [address] Pre Op Surgery 09/14 @ [facility] Comment on above: Pre Op Surgery 09/14 @ [facility] Start: 09-03-2023 End: 09-03-2023 Patient encounter procedure 09/03/2023 2:30 PM EDT Office Visit [facility] Medical Office [facility] [address] [place] [address] [place] [address], [facility] [address] [place], [place] [phone] [facility] Office [facility] Start: 09-01-2023 End: 09-01-2023 Anesthesia consultation 09/01/2023 9:20 AM EDT PAT Pre Anesthesia [address] [place] [address] 1, [facility] [address] [place] [address] LAPAROSCOPY DIAGNOSTIC Pre Anesthesia Comment on above: LAPAROSCOPY DIAGNOSTIC Start: 08-25-2023 End: 08-25-2023 Patient encounter procedure 08/25/2023 11:00 AM EDT Appointment [facility] PULMONARY TESTING [address] [place] [address] [facility] CARDIO PULMONARY TESTING Comment on above: Echo Start: 08-21-2023 End: 08-20-2024 Basic metabolic 2000 panel - Serum or Plasma Basic Metabolic Panel Lab Routine SVT (supraventricular tachycardia) ([facility]) Expected: 08/21/2023 (Approximate), Expires: 08/20/2024 [facility] Service Area Work Phone: Comment on above: Expected: 08/21/2023 (Approximate), Expi res: 08/20/2024 Start: 08-21-2023 End: 08-20-2024 CBC panel - Blood by Automated count CBC Lab Routine SVT (supraventricular tachycardia) ([facility]) Expected: 08/21/2023 (Approximate), Expires: 08/20/[address] [facility] Work Phone: Comment on above: Expected: 08/21/2023 (Approximate), Expi res: 08/20/2024 Start: 08-20-2023 End: 08-20-2023 Patient encounter procedure 08/20/2023 12:45 PM EDT Appointment [facility] PULMONARY TESTING [address] [place] [address] [facility] CARDIO PULMONARY TESTING Comment on above: Echo Start: 08-20-2023 End: 08-20-2023 Patient encounter procedure 08/20/2023 9:20 AM EDT Office Visit OB/Gynecology [address] [place] [address] Mary Jo Chance MD [address] [place] [address] Endosee for IUD Removal OB/Gynecology Comment on above: Endosee for IUD Removal Start: 08-20-2023 End: 08-20-2023 Patient encounter procedure 08/20/2023 12:45 AM EDT Appointment [facility] PULMONARY TESTING [address] [place] [address] Echo [facility] PULMONARY TESTING Comment on above: Echo Start: 08-19-2023 End: 08-19-2023 Manual pelvic examination 08/19/2023 2:30 PM EDT Procedure OB/Gynecology [address] [place] [address] Pelvic pain in female [R10.2]; Intrauterine contraceptive [...] encounter Irregular bleeding Expected: 08/18/2023, Expires: 08/17/2024 [facility] Work Phone: Comment on above: Expected: 08/18/2023, Expires: Start: 07-24-2023 End: 07-24-2023 Patient encounter procedure 07/24/2023 10:45 AM EDT Office Visit OB/Gynecology [address] [place] [address] Gino Valero APRN.CN [address] [place] [address] follow up OB/Gynecology Comment on above: follow up Start: 07-15-2023 End: 07-15-2023 Patient encounter procedure 07/15/2023 9:30 AM EDT Office Visit Pulmonary Medicine [address] [place] [address] Chantelle Low PA-C [address] [place] [address] Pulmonary Medicine Start: 07-10-2023 End: 07-10-2023 Patient encounter procedure 07/10/2023 11:15 AM EDT Office Visit [place] [phone] [facility] [address] [place] [phone] Alla Llanes MD [address] [facility], [facility] [address] [place] [phone] [facility] Start: 07-09-2023 End: 07-09-2023 ambulatory 07/09/2023 2:30 PM EDT [facility] Psychiatry [address] [place] [facility] [facility] [address] [place] [address] Dipti Freed, [address] [place], [place] [id number] med check Psychiatry Comment on above: med check Start: 07-09-2023 End: 07-09-2023 Patient encounter procedure [facility] Start: 07-08-2023 End: 07-08-2023 Patient encounter procedure 07/08/2023 11:00 AM EDT Office Visit [address] [id number] Alla Llanes MD [address] [facility], [place] [id number] [facility] Start: 07-02-2023 End: 07-01-2024 F5 gene [id number] [Presence] in Blood or Tissue by Molecular genetics method Factor V Leiden Lab Routine Single subsegmental pulmonary embolism without acute cor pulmonale (Multi) Expected: 07/02/2023 (Approximate), Expires: 07/01/2024 [facility] Service Area Work Phone: Comment on above: Expected: 07/02/2023 (Approximate), Expi res: 07/01/2024 Start: 07-02-2023 End: 07-01-2024 Prothrombin Gene Mutation Prothrombin Gene Mutation Lab Routine Single subsegmental pulmonary embolism without acute cor pulmonale (Multi) Expected: 07/02/2023 (Approximate), Expires: 07/01/[address] [facility] Work Phone: Comment on above: Expected: 07/02/2023 (Approximate), Expi res: 07/01/2024 Start: 07-02-2023 End: 07-02-2023 Patient encounter procedure [facility] Comment on above: ER follow up Start: 06-26-2023 End: 06-26-2023 Patient encounter procedure 06/26/2023 1:20 PM EDT Office Visit OB/Gynecology [address] [place] [address] Prabhu Ortez MD [address] [place], [place] [id number] ER follow [facility] 06/24/23 OB/Gynecology Comment on above: ER follow [facility] 06/24/23 Start: 06-25-2023 End: 06-24-2025 Holter monitor study Holter Or Event Corrugator Operator Helper Cardiac Services Routine Palpitations Expected: 06/25/2023 (Approximate), Expires: 06/24/2025 [facility] Service Area Work Phone: Comment on above: Expected: 06/25/2023 (Approximate), Expi res: 06/24/2025 Start: 06-25-2023 End: 06-24-2025 US.doppler Lower extremity vein - bilateral Vascular US Lower Extremity Venous Duplex Bilateral Vascular Ultrasound Routine Single subsegmental pulmonary embolism without acute cor pulmonale (Multi) Expected: 06/25/2023 (Approximate), Expires: 06/24/[address] [facility] Work Phone: Comment on above: Expected: 06/25/2023 (Approximate), Expi res: 06/24/2025 Start: 06-25-2023 End: 06-25-2023 Patient encounter procedure 06/25/2023 1:45 PM EDT Office Visit [facility] Medical Office Building [address] [place] [address] 2nd [place] [address] [place] [address] [place] [phone] [facility] Medical Office Building Start: 06-22-2023 Blood chemistry [facility] Start: 06-22-2023 Plain chest X-ray Chest 1 View (Portable) [facility] Start: 06-22-2023 [facility] Start: 06-17-2023 Subsequent hospital visit by physician 06/17/2023 Hospital Encounter [facility] [place] [address] [place] [address] Alla Llanes MD [address] [facility], [address] [place] [address] [facility] [place] Start: 06-12-2023 End: 06-12-2023 ambulatory 06/12/2023 10:30 AM EDT [facility] Psychiatry [address] [facility] [address] [place] [address] Dipti Freed, [address] [place] [address] [facility] Psychiatry Comment on above: [facility] Start: 05-25-2023 CHLAMYDIA SCREENING (18-24) CHLAMYDIA SCREENING (18-24) [facility] Start: 05-25-2023 GC (GONORRHEA) SCREENING (18-24) GC (GONORRHEA) SCREENING (18-24) [facility] Start: 05-25-2023 Screening for Chlamydia trachomatis Chlamydia Screening (18-24) [facility] Start: 05-13-2023 End: 08-12-2023 Thyrotropin [Units/volume] in Serum or Plasma TSH BLD Lab Routine PTSD (post-traumatic stress disorder) Expected: 05/13/2023, Expires: 08/12/2023 [facility] Work Phone: Comment on above: Expected: 05/13/2023, Expires: Start: 05-13-2023 End: 08-12-2023 Thyroxine (T4) free [Mass/volume] in Serum or Plasma T4 FREE/FREE THYROX Lab Routine PTSD (post-traumatic stress disorder) Expected: 05/13/2023, Expires: 08/12/2023 [facility] Work Phone: Comment on above: Expected: 05/13/2023, Expires: Start: 05-13-2023 End: 08-12-2023 TOX SCREEN ROUT UR TOX SCREEN ROUT UR Lab Routine Episode of recurrent major depressive disorder, unspecified depression episode severity (HCC) Expected: 05/13/2023, Expires: 08/12/2023 [facility] Work Phone: Comment on above: Expected: 05/13/2023, Expires: 4 Start: 04-23-2023 End: 07-23-2023 CBC panel - Blood by Automated count CBC Lab Routine Spotting Expected: 04/23/2023, Expires: 07/23/2023 [facility] Work Phone: Comment on above: Expected: 04/23/2023, Expires: Start: 10-11-2022 Covid-19 Vaccine ( season) Covid-19 Vaccine ( season) [facility] Start: 10-11-2022 Influenza vaccination [facility] Start: 08-14-2022 CHLAMYDIA SCREENING (18-24) CHLAMYDIA SCREENING (18-24) [facility] Start: 08-14-2022 GC (GONORRHEA) SCREENING (18-24) GC (GONORRHEA) SCREENING (18-24) [facility] Start: 11-12-2021 End: 01-12-2022 HIV 1+2 Ab [Presence] in Serum or Plasma by Immunoassay HIV 1 2 COMBO(AG/AB),WITH REFLEX TO DIFFERENTIATION Lab Routine Exposure to HIV Expected: 11/12/2021, Expires: 01/12/2022 [facility] Work Phone: Comment on above: Expected: 11/12/2021, Expires: 2 Start: 10-11-2021 Influenza vaccination INFLUENZA (#1) [facility] Start: 08-15-2021 End: 10-15-2021 HIV 1+2 Ab [Presence] in Serum or Plasma by Immunoassay HIV 1 2 COMBO(AG/AB),WITH REFLEX TO DIFFERENTIATION Lab Routine Screening for STD (sexually transmitted disease) Expected: 08/15/2021, Expires: 10/15/2021 [facility] Work Phone: Comment on above: Expected: 08/15/2021, Expires: 2 Start: 08-14-2021 End: 10-14-2021 Chronic hepatitis differentiation between hepatitis B and C virus panel - Serum or Plasma [facility] Work Phone: Comment on above: Expected: 08/14/2021, Expires: 2 Start: 08-14-2021 End: 10-14-2021 Hepatitis C virus Ab [Presence] in Serum [facility] Work Phone: Comment on above: Expected: 08/14/2021, Expires: 2 Start: 08-14-2021 End: 10-14-2021 SYPHILIS TOTAL W/REFLEX [facility] Work Phone: Comment on above: Expected: 08/14/2021, Expires: 2 Start: 03-21-2021 End: 03-22-2022 Ondansetron Dispersible 4 mg Oral Tablet Once STAT ; Tablet, Disintegrating (ZOFRAN)DOSE = 4 mg Oral Once, PRN Nausea Start: 21-Mar-2021 End: 21-Mar-2022 Ordered: 21-Mar-2021 Tatyana Michaels [facility] Start: 2020 CHLAMYDIA SCREENING (18-24) CHLAMYDIA SCREENING (18-24) [facility] Start: 2020 Diabetes mellitus screening Diabetes Screening [facility] Start: 2020 GC (GONORRHEA) SCREENING (18-24) GC (GONORRHEA) SCREENING (18-24) [facility] Start: 2020 HEPATITIS C SCREENING HEPATITIS C SCREENING [facility] Start: 2020 Hepatitis C screening Hepatitis C Screening [facility] Start: 2020 HIV SCREENING HIV SCREENING [facility] Start: 08-22-2019 Adult depression screening assessment DEPRESSION SCREENING [facility] Start: 2018 Meningococcal B Vaccine (1 of 2 - Standard) Meningococcal B Vaccine (1 of 2 - Standard) [facility] Start: 2018 Meningococcal B Vaccine: Consider Based On Risk (1 of 2 - Patient Seeks Protection) Meningococcal B Vaccine: Consider Based On Risk (1 of 2 - Patient Seeks Protection) [facility] Start: 2018 MENINGOCOCCAL B: Consider based on risk (1 of 2 - Patient Seeks Protection) MENINGOCOCCAL B: Consider based on risk (1 of 2 - Patient Seeks Protection) [facility] Start: 2018 MENINGOCOCCAL CONJUGATE (2 - 2-dose series) MENINGOCOCCAL CONJUGATE (2 - 2-dose series) [facility] Start: 2018 Screening for Chlamydia trachomatis CHLAMYDIA SCREEN [facility] Start: 07-24-2018 Screening for Chlamydia trachomatis GONORRHEA SCREEN [facility] Start: 2017 HIV screening HIV SCREENING DISCUSSION [facility] Start: 2016 PEDS TO ADULT TRANSITION ANNUAL ASSESSMENT PEDS TO ADULT TRANSITION ANNUAL ASSESSMENT [facility] Start: 2014 PEDS TO ADULT TRANSITION INITIAL DISCUSSION PEDS TO ADULT TRANSITION INITIAL DISCUSSION [facility] Start: 2012 MENINGOCOCCAL B: Consider based on risk (1 of 2 - Risk Bexsero 2-dose series) MENINGOCOCCAL B: Consider based on risk (1 of 2 - Risk Bexsero 2-dose series) [facility] Start: 2008 Pneumococcal Vaccine: Pediatrics (0 to 5 Years) and At-Risk Patients (6 to 64 Years) (1 of 1 - PPSV23 or PCV20) Pneumococcal Vaccine: Pediatrics (0 to 5 Years) and At-Risk Patients (6 to 64 Years) (1 of 1 - PPSV23 or PCV20) [facility] Start: 2006 Hearing Screening (#1) Hearing Screening (#1) [facility] Start: 2005 Well Child Visit (WCV) - Annual Well Child Visit (WCV) - Annual [facility] Start: 03-25-2003 COVID-19 VACCINE (#1) COVID-19 VACCINE (#1) [facility] Start: 2002 Hearing Screening (#1) Hearing Screening (#1) [facility] Start: 2002 Hepatitis C screening HEPATITIS C VIRUS SCREENING [facility] Start: 2002 Lipid panel Lipid Panel [facility] Start: 2002 Yearly Adult Physical Yearly Adult Physical [facility] Anion gap measurement [facility] Bacteria identified in Urine by Culture URINE CULTURE Microbiology Routine Burning with urination 11/12/2021 7:35 PM EDT [facility] Work Phone: End: 06-24-2023 Bacteria identified in Urine by Culture [facility] Work Phone: Comment on above: Once (Lab) for 1 Occurrences starting until 06/24/2023 End: 02-18-2024 Bacteria identified in Urine by Culture [facility] Work Phone: Comment on above: Once (Lab) for 1 Occurrences starting until 02/18/2024 Bacteria identified in Urine by Culture BACTERIAL CULTURE, URINE Microbiology Routine with uncertain dates, antepartum 03/09/2024 2:20 PM EST [facility] Bacteria identified in Urine by Culture URINE CULTURE Microbiology Routine 09/09/2024 7:40 PM EDT [facility] BACTERIAL VAGINOSIS AMPLIFICATION BACTERIAL VAGINOSIS AMPLIFICATION Lab Routine Acute vaginitis 11/12/2021 7:41 PM EDT [facility] Work Phone: BACTERIAL VAGINOSIS NAAT BACTERI AL VAGINOSIS NAAT Lab Routine Pelvic pain in female 08/18/2023 8:44 AM EDT [facility] BACTERIAL VAGINOSIS NAAT BACTERI AL VAGINOSIS NAAT Lab Routine Vaginal discharge 11/24/2023 1:25 PM EDT [facility] End: 09-09-2024 BETA STREP, VAGINAL SCREEN [facility] Work Phone: Comment on above: One Time for 1 Occurrences starting 08/12 until 09/09/2024 BUN/Creatinine ratio [facility] Calcium [Mass/volume ] in Serum or Plasma [facility] ALMITA / TRICHOMONA S AMPLIFICATION ALMITA / TRICHOMONAS AMPLIFICATION Lab Routine Screening for STD (sexually transmitted disease) Ordered: 08/14/2021 [facility] Work Phone: Comment on above: Ordered: 08/14/2021 ALMITA / TRICHOMONA S AMPLIFICATION ALMITA / TRICHOMONAS AMPLIFICATION Microbiology Routine Acute vaginitis 11/12/2021 7:41 PM EDT [facility] Work Phone: ALMITA/TRICHOMONAS NAAT ALMITA /TRICHOMONAS NAAT Lab Routine Pelvic pain in female 08/18/2023 8:44 AM EDT [facility] ALMITA/TRICHOMONAS NAAT ALMITA /TRICHOMONAS NAAT Lab Routine Vaginal discharge 11/24/2023 1:25 PM EDT [facility] Work Phone: Carbon dioxide, tota l [Moles/volume] in Serum or Plasma [facility] Chlamydia trachomatis+Neisseria gonorrhoeae DNA [Presence] in Unspecified specimen by SHYAM with probe detection GC/CHLAMYDIA DNA DET Lab Routine Screening for STD (sexually transmitted disease) Ordered: 08/14/2021 [facility] Work Phone: Comment on above: Ordered: 08/14/2021 Chlamydia trachomatis+Neisseria gonorrhoeae DNA [Presence] in Unspecified specimen by SHYAM with probe detection GONORRHEA/CHLAMYDIA NAAT Lab Routine Pelvic pain in female 08/18/2023 8:44 AM EDT [facility] Chlamydia trachomatis+Neisseria gonorrhoeae DNA [Presence] in Unspecified specimen by SHYAM with probe detection GONORRHEA/CHLAMYDIA NAAT Lab Routine Vaginal discharge 11/24/2023 1:25 PM T [facility] Chloride [Moles/volu me] in Serum or Plasma [facility] End: 06-17-2023 Choriogonadotropin ( test) [Presence] in Urine hCG, Urine, Qualitative Lab STAT STAT (Lab) for 1 Occurrences starting 06/17/2023 until 06/17/[address] [facility] Work Phone: Comment on above: STAT (Lab) for 1 Occurrences starting until 06/17/2023 End: 10-03-2023 Choriogonadotropin ( test) [Presence] in Urine POCT Point of Care Testing STAT Once (Lab) for 1 Occurrences starting 10/03/2023 until 10/03/[address] [facility] Work Phone: Comment on above: Once (Lab) for 1 Occurrences starting until 10/03/2023 End: 06-19-2023 Clostridioides difficile toxin A+B tcdA+tcdB genes [Presence] in Stool by SHYAM with probe detection C. difficile, PCR Microbiology STAT STAT (Lab) for 1 Occurrences starting 06/19/2023 until 06/19/[address] [facility] Work Phone: Comment on above: STAT (Lab) for 1 Occurrences starting until 06/19/2023 Creatinine [Moles/vo lume] in Serum or Plasma [facility] End: 06-21-2023 ECG 12 lead [facility] Work Phone: Comment on above: Once for 1 Occurrences starting 06/21/19 24 until 06/21/2023 ECG 12 lead (Clinic Performed) ECG 12 lead (Clinic Performed) ECG Routine Atrial fibrillation, unspecified type (Multi) 01/27/2024 9:30 AM EST [facility] Work Phone: End: 07-30-2024 Echocardiography ECHO Cardiology Routine Paroxysmal SVT (supraventricular tachycardia) (HCC) Palpitations 1 Occurrences starting 07/31/2023 until 07/30/2024 [facility] Work Phone: Comment on above: 1 Occurrences starting 07/31/2023 until 07/30/2024 Electrocardiogram, 12-lead PRN ACS symptoms Electrocardiogram, 12-lead PRN ACS symptoms ECG Routine As needed until discontinued starting 06/19/[address] [facility] Work Phone: Comment on above: As needed until discontinued starting Electrocardiogram, 12-lead PRN ACS symptoms Electrocardiogram, 12-lead PRN ACS symptoms ECG Routine As needed until discontinued starting 06/20/[address] [facility] Work Phone: Comment on above: As needed until discontinued starting Erythrocyte mean corpuscular volume determination [facility] End: 06-18-2023 Extra Urine [employer] [facility] Work Phone: Comment on above: Once for 1 Occurrences starting 06/18/19 until 06/18/2023 End: 06-24-2023 Extra Urine [employer] [facility] Work Phone: Comment on above: Once for 1 Occurrences starting 06/24/19 24 until 06/24/2023 End: 02-18-2024 Extra Urine [employer] [facility] Work Phone: Comment on above: Once for 1 Occurrences starting 02/17/19 until 02/18/2024 Glucose [Mass/volume ] in Serum or Plasma POCT Glucose Point of Care Testing - Docked Device Routine As needed (Lab) until discontinued starting 06/17/2023 [facility] Work Phone: Comment on above: As needed (Lab) until discontinued start ing 06/17/2023 Glucose [Mass/volume ] in Serum or Plasma [facility] Hematocrit [Volume Fraction] of Blood [facility] Hemoglobin [Mass/vol ume] in Blood [facility] HIV 1+2 Ab [Presence ] in Serum or Plasma by Immunoassay HIV 1 2 COMBO(AG/AB),WITH REFLEX TO DIFFERENTIATION Lab Routine Screening for STD (sexually transmitted disease) 08/14/2021 12:16 PM EDT [facility] Work Phone: End: 07-09-2023 Holter monitor study [facility] Work Phone: Comment on above: Once for 1 Occurrences starting 07/09/19 until 07/09/2023 Insertion intrauteri ne device iud INSERT INTRAUTERINE DEVICE Procedures Routine Abnormal uterine bleeding (AUB) Ordered: 06/26/2023 [facility] Work Phone: Comment on above: Ordered: 06/26/2023 Laparoscopy surg cholecystectomy Cholecystectomy Laparoscopy Symptomatic cholelithiasis [facility] [place] Leukocytes [#/volume ] in Blood [facility] Mean corpuscular hemoglobin concentration determination [facility] Mean corpuscular hemoglobin determination [facility] Measurement of renal function [facility] Neutrophil count [facility] Neutrophil percent differential count [facility] PAP TEST PAP TEST Lab Rou tono with uncertain dates, antepartum Screening for cervical cancer Screening for human papillomavirus (HPV) 03/09/2024 2:20 PM EST [facility] Patient Education [facility] Work Phone: Patient referral [facility] Work Phone: Platelets [#/volume] in Blood [facility] Potassium [Moles/vol ume] in Serum or Plasma [facility] End: 10-03-2023 PT and aPTT panel - Platelet poor plasma by Coagulation assay Coagulation Screen Lab Routine Once (Lab) for 1 Occurrences starting 10/03/2023 until 10/03/2023 [facility] Service Area Work Phone: Comment on above: Once (Lab) for 1 Occurrences starting until 10/03/2023 Red blood cell count [facility] Red cell distributio n width determination [facility] Removal intrauterine device iud REMOVE INTRAUTERINE DEVICE Procedures Routine Ordered: 08/20/2023 [facility] Work Phone: Comment on above: Ordered: 08/20/2023 ROUTINE, GR OUP B STREP PCR ROUTINE, GROUP B STREP PCR Microbiology Routine 36 weeks gestation of 12/03/2022 3:17 PM EDT [facility] Work Phone: Sodium [Moles/volume ] in Serum or Plasma [facility] End: 06-19-2023 Stool Pathogen Panel, PCR Stool Pathogen Panel, PCR Microbiology STAT Once (Lab) for 1 Occurrences starting 06/19/2023 until 06/19/2023 [facility] Work Phone: Comment on above: Once (Lab) for 1 Occurrences starting until 06/19/2023 Surgical pathology study Surgica l Pathology Exam Pathology and Cytology Routine Symptomatic cholelithiasis Release Upon Ordering for 1 Occurrences starting 06/17/2023 [facility] Work Phone: Comment on above: Release Upon Ordering for 1 Occurrences starting 06/17/2023 Urea nitrogen [Mass/volume] in Serum or Plasma [facility] End: 06-18-2023 Urinalysis complete W Reflex Culture panel - Urine [facility] Work Phone: Comment on above: Once (Lab) for 1 Occurrences starting until 06/18/2023 End: 06-24-2023 Urinalysis complete W Reflex Culture panel - Urine [facility] Service Area Work Phone: Comment on above: Once (Lab) for 1 Occurrences starting until 06/24/2023 End: 02-18-2024 Urinalysis complete W Reflex Culture panel - Urine [facility] Work Phone: Comment on above: STAT (Lab) for 1 Occurrences starting until 02/18/2024 US.doppler Lower extremity vein - bilateral Vascular US Lower Extremity Venous Duplex Bilateral Vascular Ultrasound Routine Single subsegmental pulmonary embolism without acute cor pulmonale (Multi) Other pulmonary embolism without acute cor pulmonale (Multi) 07/09/2023 10:35 AM EDT [facility] Work Phone: End: 09-18-2024 XR Pelvis AP and Inlet and Outlet XR PELVIS 3V AP/INLET/OUTLET Radiology Routine Malpositioned IUD, sequela Pelvic pain in female 1 Occurrences starting 08/20/2023 until 09/18/2024 [facility] Comment on above: 1 Occurrences starting 08/20/2023 until 09/18/2024 XR Pelvis AP and Inl et and Outlet XR PELVIS 3V AP/INLET/OUTLET Radiology Routine Malpositioned IUD, sequela Pelvic pain in female 08/20/2023 10:18 AM EDT [facility] Immunizations Immunization Date Immunization Notes Care Provider Fa cility 07-27-2024 RHO(D) immune globul in- IV or IM Yamila Ballard MD Work Phone: [facility] 07-27-2024 tetanus toxoid, redu gerry diphtheria toxoid, and acellular pertussis vaccine, adsorbed Yamila Ballard MD Work Phone: [facility] 11-05-2022 tetanus toxoid, redu gerry diphtheria toxoid, and acellular pertussis vaccine, adsorbed Prabhu Ortez MD Work Phone: [facility] 05-17-2020 tetanus toxoid, redu gerry diphtheria toxoid, and acellular pertussis vaccine, adsorbed Mitra Reed APRN.SERVICE LEARNING COORDINATOR Work Phone: [facility] 07-10-2017 tetanus toxoid, redu gerry diphtheria toxoid, and acellular pertussis vaccine, adsorbed Steven Rojas APRN.SERVICE LEARNING COORDINATOR Work Phone: [facility] 10-08-2016 Human Papillomavirus 9-valent vaccine Steven Rojas APRN.SERVICE LEARNING COORDINATOR Work Phone: [facility] Work Phone: 10-08-2016 influenza, injectabl e, quadrivalent, contains preservative Steven Rojas APRN.SERVICE LEARNING COORDINATOR Work Phone: [facility] Work Phone: 10-08-2016 influenza virus vacc ine, unspecified formulation Lianet Heller APRN.SERVICE LEARNING COORDINATOR Work Phone: [facility] 10-02-2015 hepatitis A vaccine, pediatric/adolescent dosage, 2 dose schedule Steven Rojas APRN.SERVICE LEARNING COORDINATOR Work Phone: [facility] 10-02-2015 Human Papillomavirus 9-valent vaccine Steven Rojas APRN.SERVICE LEARNING COORDINATOR Work Phone: [facility] 10-02-2015 meningococcal polysaccharide (groups A, C, Y and W-135) diphtheria toxoid conjugate vaccine (MCV4P) Steven Rojas APRN.SERVICE LEARNING COORDINATOR Work Phone: [facility] 10-02-2015 tetanus toxoid, redu gerry diphtheria toxoid, and acellular pertussis vaccine, adsorbed Steven Rojas APRN.SERVICE LEARNING COORDINATOR Work Phone: [facility] 09-15-2008 diphtheria, tetanus toxoids and acellular pertussis vaccine, 5 pertussis antigens Steven Rojas APRN.SERVICE LEARNING COORDINATOR Work Phone: [facility] 09-15-2008 diphtheria, tetanus toxoids and acellular pertussis vaccine, unspecified formulation Mitra Reed APRN.SERVICE LEARNING COORDINATOR Work Phone: [facility] 09-15-2008 hepatitis A vaccine, pediatric/adolescent dosage, 2 dose schedule Steven Rojas STEAM FINISHER.SERVICE LEARNING COORDINATOR Work Phone: [facility] 09-15-2008 hepatitis A vaccine, unspecified formulation Mitra Reed STEAM FINISHER.SERVICE LEARNING COORDINATOR Work Phone: [facility] 09-15-2008 measles, mumps and rubella virus vaccine Steven Rojas STEAM FINISHER.SERVICE LEARNING COORDINATOR Work Phone: [facility] 09-15-2008 poliovirus vaccine, inactivated Steven Rojas STEAM FINISHER.SERVICE LEARNING COORDINATOR Work Phone: [facility] 09-15-2008 poliovirus vaccine, unspecified formulation Mitra Reed STEAM FINISHER.SERVICE LEARNING COORDINATOR Work Phone: [facility] 09-15-2008 varicella virus vaccine Bartolome kevin Bob STEAM FINISHER.SERVICE LEARNING COORDINATOR Work Phone: [facility] 05-07-2006 pneumococcal conjuga te vaccine, 13 valent Steven Rojas STEAM FINISHER.SERVICE LEARNING COORDINATOR Work Phone: [facility] 05-07-2006 pneumococcal conjuga te vaccine, 7 valent Mitra Reed STEAM FINISHER.SERVICE LEARNING COORDINATOR Work Phone: [facility] 05-07-2006 varicella virus vaccine Bartolome kevin Carnesenedelia STEAM FINISHER.SERVICE LEARNING COORDINATOR Work Phone: [facility] 11-14-2004 diphtheria, tetanus toxoids and acellular pertussis vaccine, 5 pertussis antigens Steven Rojas STEAM FINISHER.SERVICE LEARNING COORDINATOR Work Phone: [facility] 11-14-2004 diphtheria, tetanus toxoids and acellular pertussis vaccine, unspecified formulation Mitra Tritemitope STEAM FINISHER.SERVICE LEARNING COORDINATOR Work Phone: [facility] 12-28-2003 haemophilus influenz ae type b vaccine, conjugate unspecified formulation Mitra Reed STEAM FINISHER.SERVICE LEARNING COORDINATOR Work Phone: [facility] 12-28-2003 haemophilus influenz ae type b vaccine, HbOC conjugate Steven Rojas STEAM FINISHER.SERVICE LEARNING COORDINATOR Work Phone: [facility] 12-28-2003 measles, mumps and rubella virus vaccine Steven Pendlebury STEAM FINISHER.SERVICE LEARNING COORDINATOR Work Phone: [facility] 12-28-2003 poliovirus vaccine, inactivated Steven Pendleannbury STEAM FINISHER.SERVICE LEARNING COORDINATOR Work Phone: [facility] 08-31-2003 diphtheria, tetanus toxoids and acellular pertussis vaccine, 5 pertussis antigens Steven Pendmasoud STEAM FINISHER.SERVICE LEARNING COORDINATOR Work Phone: [facility] 08-31-2003 diphtheria, tetanus toxoids and acellular pertussis vaccine, unspecified formulation Mitra Trill STEAM FINISHER.SERVICE LEARNING COORDINATOR Work Phone: [facility] 08-31-2003 haemophilus influenz ae type b conjugate and Hepatitis B vaccine Mitra Trill STEAM FINISHER.SERVICE LEARNING COORDINATOR Work Phone: [facility] 08-31-2003 haemophilus influenz ae type b vaccine, HbOC conjugate Steven Pendleannbury STEAM FINISHER.SERVICE LEARNING COORDINATOR Work Phone: [facility] 08-31-2003 hepatitis B vaccine, pediatric or pediatric/adolescent dosage Steven Pendleannbury STEAM FINISHER.SERVICE LEARNING COORDINATOR Work Phone: [facility] 08-31-2003 pneumococcal conjuga te vaccine, 13 valent Steven Pendlebury STEAM FINISHER.SERVICE LEARNING COORDINATOR Work Phone: [facility] 08-31-2003 pneumococcal conjuga te vaccine, 7 valent Mitra Trill STEAM FINISHER.SERVICE LEARNING COORDINATOR Work Phone: [facility] 03-21-2003 diphtheria, tetanus toxoids and acellular pertussis vaccine, 5 pertussis antigens Steven Bob STEAM FINISHER.SERVICE LEARNING COORDINATOR Work Phone: [facility] 03-21-2003 diphtheria, tetanus toxoids and acellular pertussis vaccine, unspecified formulation Mitra Trill STEAM FINISHER.SERVICE LEARNING COORDINATOR Work Phone: [facility] 03-21-2003 haemophilus influenz ae type b vaccine, conjugate unspecified formulation Mitra Trill STEAM FINISHER.SERVICE LEARNING COORDINATOR Work Phone: [facility] 03-21-2003 haemophilus influenz ae type b vaccine, HbOC conjugate Steven Pendlebury STEAM FINISHER.SERVICE LEARNING COORDINATOR Work Phone: [facility] 03-21-2003 pneumococcal conjuga te vaccine, 13 valent Steven Pendlebury STEAM FINISHER.SERVICE LEARNING COORDINATOR Work Phone: [facility] 03-21-2003 pneumococcal conjuga te vaccine, 7 valent Mitra Tritemitope STEAM FINISHER.SERVICE LEARNING COORDINATOR Work Phone: [facility] 03-21-2003 poliovirus vaccine, inactivated Steven Pendlebury STEAM FINISHER.SERVICE LEARNING COORDINATOR Work Phone: [facility] 2002 diphtheria, tetanus toxoids and acellular pertussis vaccine, 5 pertussis antigens Steven Pendlebury STEAM FINISHER.SERVICE LEARNING COORDINATOR Work Phone: [facility] 2002 diphtheria, tetanus toxoids and acellular pertussis vaccine, unspecified formulation Mitra Reed STEAM FINISHER.SERVICE LEARNING COORDINATOR Work Phone: [facility] 2002 haemophilus influenz ae type b vaccine, HbOC conjugate Steven Pendlebury STEAM FINISHER.SERVICE LEARNING COORDINATOR Work Phone: [facility] 2002 hepatitis B vaccine, pediatric or pediatric/adolescent dosage Steven Pendlebury STEAM FINISHER.SERVICE LEARNING COORDINATOR Work Phone: [facility] 2002 pneumococcal conjuga te vaccine, 13 valent Steven Pendlebury STEAM FINISHER.SERVICE LEARNING COORDINATOR Work Phone: [facility] 2002 poliovirus vaccine, inactivated Steven Pendlebury STEAM FINISHER.SERVICE LEARNING COORDINATOR Work Phone: [facility] 2002 hepatitis B vaccine, pediatric or pediatric/adolescent dosage Steven Pendlebury STEAM FINISHER.SERVICE LEARNING COORDINATOR Work Phone: [facility] Payers Date Payer Category Payer Self-pay [id number] 2021 Medicaid (Managed Care) 1.2. 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 2007 Medicaid [employer] [facility] MEDICA[facility] [id number] 2007-Present [phone] [address] [place] [address] Medicaid [id number] 2007 Medicaid [id number] 2002 Unknown [id number] 2.16.840.1.350109.3.579.2. 1069 2002 Unknown [id number] 2.16840.1.015241.3.579.2. 1244 2002 Unknown [id number] 2.16.840.1.722109.3.579.2. 1246 2002 Unknown [id number] 2.16.840.1.853022.3.579.2. 1246 2002 Unknown [id number] 2.16.840.1.416980.3.579.2. 1242 2002 Unknown [id number] 2.16.840.1.571242.3.579.2. 1242 2002 Unknown [id number] 2.16.840.1.471932.3.579.2. 124 2002 Unknown [id number] 2.16.840.1.680568.3.579.2. 1242 2002 Unknown [id number] 2.16.840.1.133150.3.579.2. 1242 2002 Unknown [id number] 2.16.840.1.633117.3.579.2. 1243 2002 Unknown [id number] 2.16.840.1.461984.3.579.2. 1242 2002 Unknown [id number] 2.16.840.1.956350.3.579.2. 1242 2002 Unknown [id number] 2.16.840.1.245823.3.579.2. 1242 2002 Unknown [id number] 2.16840.1.330467.3.579.2. 1242 2002 Unknown [id number] 2.16840.1.544506.3.579.2. 1243 2002 Unknown [id number] 2.16840.1.344762.3.579.2. 1243 2002 Unknown [id number] 2.840.1.481998.3.579.2. 1243 2002 Unknown [id number] 2.840.1.446979.3.579.2. 1243 2002 Unknown [id number] 2.16840.1.349818.3.579.2. 903 2002 Unknown [id number] 2.16840.1.085091.3.579.2. 983 Unknown [id number] Unknown [id number] Unknown [id number] Unknown [id number] Unknown [id number] 2.16840.1.387360.3.579.2. 462 Unknown [id number] 2.16840.1.673252.3.579.2. 462 Unknown [id number] 2.16840.1.421293.3.579.2. 462 Unknown [id number] 2.16840.1.277141.3.579.2. 462 Social History Date Type Detail Facility [facility] Start: 01-07-2021 End: 06-22-2023 Tobacco smoking consumption unknown [facility] Start: 2002 Sex Assigned At Female [facility] Start: 11-12-2021 End: 06-03-2023 Tobacco smoking status NHIS Never smoked tobacco [facility] Work Phone: Start: 08-14-2021 End: 09-09-2024 Alcohol intake Current non-drinker of alcohol (finding) [facility] Start: 10-29-2007 End: 11-12-2021 Tobacco Comment mom smokes outside [facility] Start: 2002 Sex Assigned At Not on file [facility] History of tobacco use Passive smoker [facility] Start: 11-12-2021 End: 06-03-2023 Tobacco use and exposure Smokeless tobacco non-user [facility] Start: 04-03-2022 [facility] Start: 08-11-2017 None [facility] Start: 08-18-2022 End: 10-10-2022 History of Social function [facility] Start: 08-18-2022 End: 10-10-2022 Tobacco use panel [facility] Retired 03/11/2019 P HQ Score 0 [facility] Start: 06-03-2023 End: 09-03-2023 Tobacco smoking status NHIS Ex-smoker [facility] Work Phone: End: 02-10-2022 History of tobacco use Current smoker [facility] Work Phone: End: 02-10-2022 History of tobacco use Cigarette Smoker [facility] Work Phone: Start: 06-03-2023 End: 08-21-2023 Alcoholic beverage intake Lifetime non-drinker (finding) [facility] Work Phone: Start: 05-24-2023 End: 02-18-2024 Exposure to SARS-CoV-2 (event) Not sure [facility] Start: 06-03-2023 Tobacco Comment Vapes [facility] Start: 06-12-2023 End: 09-03-2023 Tobacco use and exposure User of smokeless tobacco [facility] Work Phone: How often to you hav e a drink containing alcohol? Never [facility] In the past 12 month s, was there a time when you were not able to pay the mortgage or rent on time? No [facility] Work Phone: Start: 06-24-2023 End: 07-02-2023 Tobacco smoking status NHIS Smokes tobacco daily [facility] Work Phone: Start: 07-02-2023 Tobacco Comment vape [facility] Work Phone: Start: 09-18-2023 End: 09-08-2024 Alcohol intake Ex-drinker (finding) [facility] Start: 03-05-2024 Education 13 [facility] Start: 08-19-2018 Gender identity Identifies as female gender (finding) [facility] Start: 03-05-2024 Sexual orientation Heterosexual (finding) [facility] Start: 02-16-2016 Sex Female (finding) [facility] Goals Date Patient Goal Desired Activity /State Personal health goal Personal health goal Personal health goal Functional Status Date Assessment Result Facility 09-09-2024 Are you deaf, or do you have serious difficulty hearing No 09/09/2024 7:47 PM Candy Coats, KELLI No [facility] 09-09-2024 Are you blind, or do you have serious difficulty seeing, even when wearing glasses No 09/09/2024 7:47 PM Candy Coats, RN [facility] 09-09-[facility]24 Do you have serious difficulty walking or climbing stairs No 09/09/2024 7:47 PM Candy Coats, RN No [facility] 09-09-2024 Do you have difficul ty dressing or bathing No 09/09/2024 7:47 PM Candy Coats, RN No [facility] 09-09-2024 Because of a physica l, mental, or emotional condition, do you have difficulty doing errands alone such as visiting a physician's office or shopping No 09/09/2024 7:47 PM EDT Candy Chou, RN No [facility] Mental Status Date Assessment Result Facility 09-09-2024 Because of a physica l, mental, or emotional condition, do you have serious difficulty concentrating, remembering, or making decisions No 09/09/2024 7:47 PM EDT Candy Chou RN No [facility] 06-22-2023 Cognitive function Voice/Name [facility] Work Phone: Clinical Notes 07-01-2017 to 09-16-2024 Nursing Notes - Candy Chou RN - 09/09/2024 10:36 PM EDTNursing Notes - Candy Chou RN - 09/09/2024 10:35 PM EDTNursing Notes - Candy Chou RN - 09/09/2024 10:05 PM EDTPatient Instructions Note Date & Type Note Facility 09-16-2024 Note HNO ID: [id number] Author: NAYELY GIL PA-C Service: ? Author Type: Physician Alteration Manager Type: Progress Notes Filed: 09/16/2024 11:22 Note Text: [facility] DEPARTMENT OF PATIENT BLOOD MANAGEMENT FOLLOW-UP DISTANCE HEALTH VISIT I have communicated my name and active licensure. The patient's identity and physical location were verified at the time of this visit. No patient name on file. or their legal billing representative has been informed of the risks and benefits of -- and alternatives to -- treatment through a remote evaluation and consents to proceed with the evaluation remotely. This is a virtual visit using [employer] Video Visit. It required patient-provider interaction for the medical decision making as documented below. PATIENT NAME: Keagan Alicia DATE OF SERVICE: 09/16/24 REFERRING PROVIDER: Jaquelin Hi APRN.CNM Keagan Alicia is a 23 year old female who was referred to Blood Management for evaluation and management of anemia in and iron deficiency anemia. Subjective Last visit subjective for reference: CHIEF COMPLAINT: My iron is low. HISTORY [...] of chronic diarrhea since cholecystectomy in 06/2023 Signs and symptoms associated with anemia: Reports: - Fatigue - Night sweats; chronic and intermittent. - Shortness of breath with exertion - Tachycardia and palpitations - Lightheadedness or dizziness - Difficulty concentrating or brain fog - Pagophagia; craving for certain smells - Headache - Brittle hair or nails - Restless Legs - Abdominal discomfort - Diarrhea and constipation Patient reports prior iron supplementation; Ferrous sulfate 325 mg tablet (65 mg elemental iron) PO daily. Patient with oral iron intolerance. Patient denies history of IV iron infusions or blood transfusions. Current medications that may affect iron absorption and/or blood loss: - Antacids (H2 receptor blockers, PPI) - Aspirin Interval History INTERVAL HPI: Keagan Alicia presents for follow-up of anemia and lab review. Patient was last seen on 08/05/24, at which time labs revealed iron deficiency anemia. Patient completed recommended treatment of Venofer 200 mg x 4 doses from 08/12/24 - 08/24/24 and tolerated this well. She had itching after the infusions; resolved with Pepcid. Repeat labs completed 09/04/24 with improvement in iron studies and normalization of hemoglobin. She is now 36w1d. Scheduled for on 10/07. Previously reported fatigue, shortness of breath with exertion, tachycardia, palpitations, lightheadedness, difficulty concentrating, pagophagia, headaches, brittle hair and nails, and restless legs. Still feels tired with intermittent palpitations/tachycardia due to SVT. DUARTE, difficulty concentrating, restless legs, brittle hair/nails improved. Pagophagia resolved after starting iron infusions. Medical/Surgical History: PAST MEDICAL HISTORY Diagnosis Date Anemia Chronic tonsillitis Depression 10/08/2016 Gall stone 07/2022 cholecystectomy after delivery GERD (gastroesophageal reflux disease) H/O shoulder dystocia in prior , currently ([facility]) 12/14/22 Hemorrhoids History of back problems History of depression History of shoulder dystocia in prior 03/10/2024 Kidney stones Paroxysmal SVT (supraventricular tachycardia) ([facility]) Postoperative pulmonary embolism ([facility]) 06/2023 Psychiatric disorder depression, anxiety and PTSD PAST SURGICAL HISTORY Procedure Laterality Date CHOLECYSTECTOMY HX 06/17/2023 [facility] IUD REMOVAL 09/15/2023 PT ED HEART AND [...] 4 mg, ORAL, EVERY 6 HOURS NEEDED REVIEW OF SYSTEMS: Full ROS elicited today (09/16/24) and reported as negative except as documented in HPI. Objective VIDEO PHYSICAL EXAMINATION: (if done, performed via video enabled technology) GENERAL: alert and appropriate, in no distress, w (more content not included)... [facility] 09-11-2024 Note Obstetrics History a nd Physical Subjective Chief Complaint Patient presents with Contractions HPI: Keagan Alicia is a 23 y.o. at 35w3d who presents to the Center. The patient reports: She reports normal movement. She denies loss of fluid from her vagina. She denies strong regular contractions. She reports she was having painful contractions every 5 minutes. Review of Systems: The following ROS was otherwise negative, except as noted in the HPI: constitutional, HEENT, respiratory, cardiovascular, gastrointestinal, genitourinary, skin, musculoskeletal, neurological, psych. Active Problems There are no active problems to display for this patient. Obstetrical History: OB History Para Term AB Living 3 2 1 1 0 2 SAB IAB Ectopic Multiple Live Births 0 0 0 0 2 # Outcome Date GA Lbr Rob/2nd Weight Sex Type Anes PTL Lv 3 Current 2 Term 12/15/22 38w4d 3260 g (7 lb 3 oz) F Vag-Spont EPI NEY Comments: SROM, pitocin augmentation, EBL 300mL, 1st degree perineal laceration, 1min 35sec shoulder dystocia Complications: Shoulder Dystocia Apgar1: 8 Apgar5: 9 1 08/11/17 36w0d 2807 g (6 lb 3 oz) M Vag-Spont NEY Comments: Induction Name: Donell Past Medical History: Past Medical History: Diagnosis Date Pulmonary embolism (HCC) 06/2023 After cholesystectomy Medications: Outpatient Medications as of 09/11/2024 Medication Sig famotidine (PEPCID) 20 MG tablet Take 1 (one) tablet (20 mg total) by mouth 2 (two) times a day . metoprolol tartrate (LOPRESSOR) 25 MG tablet Take 1 (one) tablet (25 mg total) by mouth 2 (two) times a day . vitamin with Ca-Iron-FA 27-1 mg Tab Take 1 (one) tablet by mouth daily . Allergies: Latex Surgical History: Past Surgical History: Procedure Laterality Date ABLATION WITH PHENOL 09/2023 due to SVT CHOLECYSTECTOMY 06/2023 Family History: No family history on file. Social History: Social History Substance and Sexual Activity Alcohol Use Not Currently Social History Substance and Sexual Activity Drug Use Not Currently Tobacco Use History[1] Social History Substance and Sexual Activity Sexual Activity Not on file Objective OBGyn Exam Physical Exam: BP 122/74 Pulse 84 Temp 98.9 degrees F (37.2 degrees C) (Oral) Resp 16 Ht 5' 3 Wt 86.2 kg (190 lb) SpO2 97% BMI 33.66 kg/m Vitals: 09/11/24 1034 BP: 122/74 Pulse: 84 Resp: 16 Temp: 98.9 degrees F (37.2 degrees C) TempSrc: Oral SpO2: 97% Weight: 86.2 kg (190 lb) Height: 5' 3 Body mass index is 33.66 kg/m . Comfortable appearing Neuro: She has no focal neurologic deficits. Normal gait and mobility. Pulm: Breathing is non labored breathing with no use of accessory muscles. CV: Skin well perfused. No edema. No significant varicosities. Musculoskeletal: No gross osteopathic abnormalities noted on general physical exam. Skin: Skin exam normal on brief evaluation of exposed skin with no obvious rashes or concerning lesions. Abd: Soft. Non tender. No rebound or guarding. Uterus: Non tender, gravid. Pelvic:Genital exam not performed by this provider at this time. Cervical Check: Dilation: 1.5 cm. 25-50% effaced. -3 station. Electronic / Contraction Monitoring Evaluation EFM: Baseline in Normal Range. Moderate variability. Decelerations: no significant decelerations noted at this time. [place]: No contractions. Labs: Labs from the last 3 days: No visits with results within 3 Day(s) from this visit. Latest known visit with results is: No results found for any previous visit. Selected Labs pertinent to pediatrics: No results found for: HIV1X2, HEPBSAG, EXTHEPCABY, EXTCHLAMGDNA, GBSPCR, RUBELLA, EXTRHTYPE, ABSCRN. No results found. Assessment Impression and Plan Keagan is a 23 y.o. at 35w3d who presents to the Center with contractions.She was seen at another institution 2 days ago and was given procardia for contractions and discharged. Her cervix is unchanged from that visit. Discussed importance of consistency in where she receives care. PTL precautions. Assessment: No problem-specific Assessment & Plan notes found for this encounter. Counseling / Education Counseling: Any basic questions the patient asked were answered today in accordance to ACOG recommendations and guidelines. Juliane Darby MD [1] Social History Tobacco Use Smoking Status Never Smokeless Tobacco Never AUTHENTICATED BY JULIANE DARBY, ON 09/11/2024 11:19:25 [facility] 09-09-2024 Miscellaneous Notes Patient ambulates off unit at this time with discharge AVS in hand. Discharge education given to patient. Reviewed signs of labor and UTIs in . Encouraged patient to call primary provider tomorrow regarding contractions and possible UTI. Patient agreeable. Encouraged patient to return for second dose of betamethasone tomorrow. Patient states returning to primary residence in [place], [place] tomorrow. Encouraged patient to go to nearest L&D for second dose of betamethasone tomorrow 24 hours after initial dose (around 2130 tomorrow night), patient agreeable. Patient declines questions or concerns. Discharge AVS signed by patient. Call placed to Dr. Kelly and updated on patient's cervical exam unchanged, but continued contractions. Dr. Kelly orders a one time dose of macrobid and a one time dose of vistaril and states patient may discharge home on labor precautions and follow up with primary OB tomorrow. Call placed to Dr. Kelly, SBAR given including patient history and medical history, cervical exam, contraction pattern, and urinalysis. Orders received for 1 L fluid bolus of lactated ringers, procardia 10 mg as a one time dose thirty minutes after initiating fluid bolus, betamethasone injection, tylenol if patient desires, and to recheck her cervix in about 1.5 hours and to call back with results. Patient reports contractions that began on Friday, but have increased in frequency today. Patient reports 8/10 pain during contractions. Patient reports she is a . Inconsistencies noted between patient's verbal report of history and electronic health records found in Care Everywhere regarding health. Patient reports not seeing a provider in several months due to [place]. Upon further evaluation, patient admits to seeing an obstetric provider in another town in [place] with last appointment being 09/08/2024. Patient reports history of a shoulder dystocia with previous delivery and that this fetus is large for dates and that she was planning to do a at term for this infant. Patient ambulates on to unit at this time, height and weight obtained. Patient oriented to room 215. documented in this encounter [facility] 09-09-2024 Nurse Note Patient ambulates off unit at this time with discharge AVS in hand. [facility] 09-09-2024 Nurse Note Discharge education given to patient. Reviewed signs of labor and UTIs in . Encouraged patient to call primary provider tomorrow regarding contractions and possible UTI. Patient agreeable. Encouraged patient to return for second dose of betamethasone tomorrow. Patient states returning to primary residence in [place], [place] tomorrow. Encouraged patient to go to nearest L&D for second dose of betamethasone tomorrow 24 hours after initial dose (around 2130 tomorrow night), patient agreeable. Patient declines questions or concerns. Discharge AVS signed by patient. [facility] 09-09-2024 Nurse Note Call placed to Dr. Kelly and updated on patient's cervical exam unchanged, but continued contractions. Dr. Kelly orders a one time dose of macrobid and a one time dose of vistaril and states patient may discharge home on labor precautions and follow up with primary OB tomorrow. [facility] 09-09-2024 Nurse Note Call placed to Dr. Kelly, SBAR given including patient history and medical history, cervical exam, contraction pattern, and urinalysis. Orders received for 1 L fluid bolus of lactated ringers, procardia 10 mg as a one time dose thirty minutes after initiating fluid bolus, betamethasone injection, tylenol if patient desires, and to recheck her cervix in about 1.5 hours and to call back with results. [facility] 09-09-2024 Nurse Note Patient reports contractions that began on Friday, but have increased in frequency today. Patient reports 8/10 pain during contractions. Patient reports she is a . Inconsistencies noted between patient's verbal report of history and electronic health records found in Care Everywhere regarding health. Patient reports not seeing a provider in several months due [place]. Upon further evaluation, patient admits to seeing an obstetric provider in [facility] [place] with last appointment being 09/08/2024. Patient reports history of a shoulder dystocia with previous delivery and that this fetus is large for dates and that she was planning to do a at term for this . [facility] 09-09-2024 Nurse Note Patient ambulates on to unit at this time, height and weight obtained. Patient oriented to room 215. [facility] 09-09-2024 History and physi hoda note [facility] 09-09-2024 Telephone encounter Note Thank you, Jaquelin Hi APRN.CNM [facility] 09-09-2024 Miscellaneous Notes Thank you, Jaquelin Hi APRN.CNM Ob patient is 35w1d called stating I think my water broke reports a constant dampness pantiess since waking up and stated that bed linens were damp when she woke up and having irregular contractions. Discussed with Jaquelin Hi. Patient was told to go to L&D for evaluation. Patient is scheduled for a repeat c/s on 10/07. documented in this encounter [facility] 09-09-2024 Telephone encounter Note Ob patient is 35w1d called stating I think my water broke reports a constant dampness pantiess since waking up and stated that bed linens were damp when she woke up and having irregular contractions. Discussed with Jaquelin Hi. Patient was told to go to L&D for evaluation. Patient is scheduled for a repeat c/s on 10/07. [facility] 09-08-2024 Note HNO ID: [id number] Author: GINO VALERO APRN.CNM Service: ? Author Type: Academy Education Director Type: Progress Notes Filed: 09/08/2024 12:56 Note Text: NST SUMMARY PROVIDER ASSESSMENT AND INTERPRETATION Keagan Alicia is a 23 year old female, , who is at 35w0d with an LUZ of 10/13/2024, by Last Menstrual Period dating method. Indications for NST: Other: contractions Baseline: 140 Variability: Moderate Accelerations: Present 15 X 15 Decelerations: None Contractions: TOCO: Irregular Interpretation: Reactive SIGNATURE: Gino Valero APRN.CNM [facility] 09-08-2024 History of Present illness Narrative NST SUMMARY PROVIDER ASSESSMENT AND INTERPRETATION Keagan Alicia is a 23 year old female, , who is at 35w0d with an LUZ of 10/13/2024, by Last Menstrual Period dating method. Indications for NST: Other: contractions Baseline: 140 Variability: Moderate Accelerations: Present 15 X 15 Decelerations: None Contractions: TOCO: Irregular Interpretation: Reactive SIGNATURE: Gino Valero APRN.CNM documented in this encounter [facility] 09-08-2024 Progress note Formatting of t his note might be different from the original. S: Keagan Alicia is a 23 year old female who is an add on for follow up. Seen in L&D last night for contractions and reports was dilated to 1 cm. She was told to follow up today in office. Positive movements and still feeling occasional contractions. Reports contractions have decreased since last night. NST reactive today in office. TOCO showing occasional, irregular contractions. Declines follow up CE today. O: See flow sheet Gen: No apparent distress Abd: Gravid, non tender ASSESSMENT/PLAN: 1. 35 weeks gestation of 2. Irregular uterine contractions 3. Supervision of high risk in third trimester - NST reactive - PTL precautions and timing of contractions reviewed - RTO 1 week or sooner if needed Gino Valero APRN.CNM [facility] 09-08-2024 Miscellaneous Notes S: Keagan Alicia is a 23 year old female who is an add on for follow up. Seen in L&D last night for contractions and reports was dilated to 1 cm. She was told to follow up today in office. Positive movements and still feeling occasional contractions. Reports contractions have decreased since last night. NST reactive today in office. TOCO showing occasional, irregular contractions. Declines follow up CE today. O: See flow sheet Gen: No apparent distress Abd: Gravid, non tender ASSESSMENT/PLAN: 1. 35 weeks gestation of 2. Irregular uterine contractions 3. Supervision of high risk in third trimester - NST reactive - PTL precautions and timing of contractions reviewed - RTO 1 week or sooner if needed Gino Valero APRN.CNM documented in this encounter [facility] 09-08-2024 Instructions Alisha Jordan LPN - 09/08/2024 9:48 AM EDT SEQUENTIAL SCREENINGS The [facility] offers sequential screenings for women who are [...] It will require an appointment with our geochemical laboratory technician. This is not an ultrasound performed [...] the above symptoms, contact our office at [phone] and ask to speak with a nurse. After hours, you can call doctors registry at [phone] OR call [facility] at [phone] and ask to have the doctor vp construction paged. If you consider this an emergency, dial 4-1-1 or go to your nearest emergency department. NEED HELP? Are you dealing with a violent or abusive relationship? Are you a victim of rape or sexual assult? Call [facility] ([place]) 24 hour Crisis Hotline: 105.877.3903 or 250-279-7499. MANUAL Your Guide to a Healthy manual is now on-line. Visit [email or web address] ncyGuide to download your free copy documented in this encounter [facility] 09-08-2024 Miscellaneous Notes RR- VB No. LOF No. CTXS No. Movement: present. Other c/o: No. Medication list reviewed. SENSITIVE EXAM: Sensitive exam not performed. Physical Exam See Flow Sheet Abd: soft, nontender, gravid Ext: edema: Trace A/P 35w0d Estimated Date of Delivery: 10/13/24 Assessment & Plan 34 weeks gestation of (HCC) Orders: URINE OB DIP B/O Supervision of high risk in third trimester (HCC) Orders: URINE OB DIP B/O History of shoulder dystocia in prior plans c/s and tubal Orders: URINE OB DIP B/O kick counts heart rate abnormality, PACs, when dopplered for 1 min during office visit it was not appreciated. Kick counts and f/u in 2 weeks or prn growth scan done, EFW remains 99% and w/ h/o shoulder dystocia agrees to proceed w/ c/s Yamila Ballard M.D. documented in this encounter [facility] 09-08-2024 Progress note Formatting of t his note might be different from the original. RR- VB No. LOF No. CTXS No. Movement: present. Other c/o: No. Medication list reviewed. SENSITIVE EXAM: Sensitive exam not performed. Physical Exam See Flow Sheet Abd: soft, nontender, gravid Ext: edema: Trace A/P 35w0d Estimated Date of Delivery: 10/13/24 Assessment & Plan 34 weeks gestation of (HCC) Orders: URINE OB DIP B/O Supervision of high risk in third trimester (HCC) Orders: URINE OB DIP B/O History of shoulder dystocia in prior plans c/s and tubal Orders: URINE OB DIP B/O kick counts heart rate abnormality, PACs, when dopplered for 1 min during office visit it was not appreciated. Kick counts and f/u in 2 weeks or prn growth scan done, EFW remains 99% and w/ h/o shoulder dystocia agrees to proceed w/ c/s Yamila Ballard M.D. [facility] 09-07-2024 Note Indication Evaluation of growth history of shoulder dystocia Impression - Single, live, intrauterine . - presentation is cephalic. - The biometry is accelerated for the assigned gestational dating. - The EFW is 3259 g, at the 98%. AC is at the >99%. - The amniotic fluid volume is normal amount with an MVP of 5.1 cm and an CHITRA of 14.5 cm. - The placenta is anterior, fundal. - Occasional PAC (premature atrial contraction) noted on ultrasound. No malformations visualized on a limited survey as detailed below. Recommendations Growth in four weeks Maternal Assessment Height 160 cm Height (ft) 5 ft Height (in) 3 in Physical Exam Initial weight (lb) 130 lb Initial BMI 23.03 kg/m Maternal assessment other: 6 Para 2 REMOTE READ Method Transabdominal ultrasound examination. View: Suboptimal view: limited by position Carney . Number of fetuses: 1 Dating LMP on: 01/07/2024 GA by LMP 34 w + 6 d LUZ by LMP: 10/13/2024 GA by prior assessment 34 w + 6 d LUZ by prior assessment: 10/13/2024 Ultrasound examination on: 09/07/2024 GA by U/S based upon: AC, BPD, Femur, HC GA by U/S 37 w + 3 d LUZ by U/S: 09/25/2024 Assigned: based on stated LUZ, selected on 09/07/2024 Assigned GA 34 w + 6 d Assigned LUZ: 10/13/2024 General Evaluation Cardiac activity present. FHR 151 bpm. movements: present. Presentation: cephalic Placenta: Placental site: anterior, fundal Umbilical cord: Cord vessels: 3 vessel cord Amniotic fluid: Amount of AF: normal amount. MVP 5.1 cm. CHITRA 14.5 cm. Q1 2.5 cm, Q2 3.5 cm, Q3 5.1 cm, Q4 3.5 cm Growth Overview Exam date GA BPD (mm) HC (mm) AC (mm) FL (mm) HL (mm) EFW (g) 06/01/2024 20w 6d 52.9 89% 198.5 82% 181.8 95% 34 57% 35.4 88% 468 94% 09/07/2024 34w 6d 93.4 >99% 335 88% 343.8 >99% 70.3 93% 3259 98% Biometry Standard BPD 93.4 mm 38w 0d >99% Hadlock OFD 115.7 mm 36w 5d 73% Nicolaides HC 335.0 mm 38w 0d 88% Jamshid AC 343.8 mm 38w 2d >99% Hadlock Femur 70.3 mm 35w 4d 93% Jamshid EFW 3,259 g 38w 1d 98% Hadlock EFW (lb) 7 lb EFW (oz) 3 oz EFW by: Hadlock (HC-AC-FL) Extended Shoe Clerk 6.8 mm Extremities / Bony Struc FL / HC 0.21 Other Structures FHR 151 bpm Anatomy Lateral ventricles: normal Cavum septi pellucidi: normal Cerebellum: normal Cisterna magna: normal 4-chamber view: normal RVOT view: normal LVOT view: normal 3-vessel view: normal Heart / Thorax Situs: situs solitus (normal) Diaphragm: normal Stomach: normal Kidneys: normal Bladder: normal sex: female Wants to know sex: yes Performed By: Antionette Rodriguez RDMS, RVT Read By: Michelle Choe M.D. [facility] 09-07-2024 Instructions Deepthi Callahan MA - 09/07/2024 2:40 PM EDT SEQUENTIAL SCREENINGS The [facility] offers sequential screenings for women who are [...] It will require an appointment with our geochemical laboratory technician. This is not an ultrasound performed [...] the above symptoms, contact our office at [phone] and ask to speak with a nurse. After hours, you can call doctors registry at [phone] OR call [facility] at [phone] and ask to have the doctor vp construction paged. If you consider this an emergency, dial or go to your nearest emergency department. NEED HELP? Are you dealing with a violent or abusive relationship? Are you a victim of rape or sexual assult? Call [facility] ([place]) 24 hour Crisis Hotline: 646.604.9386 or 462-334-9328. MANUAL Your Guide to a Healthy manual is now on-line. Visit [email or web address] ncyGuide to download your free copy SEQUENTIAL SCREENINGS The [facility] offers sequential screenings for women who are [...] It will require an appointment with our geochemical laboratory technician. This is not an ultrasound performed [...] the above symptoms, contact our office at [phone] and ask to speak with a nurse. After hours, you can call doctors registry at [phone] OR call [facility] at [phone] and ask to have the doctor vp construction paged. If you consider this an emergency, dial 9-1-1 or go to your nearest emergency department. NEED HELP? Are you dealing with a violent or abusive relationship? Are you a victim of rape or sexual assult? Call [facility] [place] [facility] 24 hour Crisis Hotline: 154.893.4893 or 128-161-4011. MANUAL Your Guide to a Healthy manual is now on-line. Visit [email or web address] ncyGuide to download your free copy documented in this encounter [facility] 08-24-2024 Note HNO ID: [id number] Author: YOSHI WEST RN Service: ? Author [...] placed. Denies questions or needs. Ambulated to [facility], no concerns. [facility] 08-24-2024 History of Present illness Narrative Pt [...] placed. Denies questions or needs. Ambulated to [facility], no concerns. documented in this encounter [facility] 08-24-2024 Progress note Formatting of t his note might be different from the original. KJ - S: Keagan denies LOF, contractions or vaginal bleeding. O: 32w6d, see flow sheet SENSITIVE EXAM: Sensitive exam not performed. A/P: Assessment & Plan Supervision of high risk in third trimester (HCC) Thrombocytopenia affecting ([facility]) Repeat CBC scheduled History of shoulder dystocia in prior Plans Antepartum anemia complicating in third trimester ([facility]) Last IV iron infusion today Paroxysmal SVT (supraventricular tachycardia) ([facility]) Continue metoprolol 32 weeks gestation of ([facility]) Reviewed PTL & FM precautions Prabhu Ortez MD [facility] 08-24-2024 Miscellaneous Notes KJ - S: Keagan [...] this encounter [facility] 08-24-2024 Instructions Deepthi Callahan MA - 08/24/2024 10:42 AM EDT SEQUENTIAL SCREENINGS The [facility] offers sequential screenings for women who are [...] It will require an appointment with our geochemical laboratory technician. This is not an ultrasound performed [...] the above symptoms, contact our office at [phone] and ask to speak with a nurse. After hours, you can call doctors registry at [phone] OR call [facility] at [phone] and ask to have the doctor vp construction paged. If you consider this an emergency, dial or go to your nearest emergency department. NEED HELP? Are you dealing with a violent or abusive relationship? Are you a victim of rape or sexual assult? Call [facility] ([place]) 24 hour Crisis Hotline: 336.385.7190 or 837-265-3044. MANUAL Your Guide to a Healthy manual is now on-line. Visit [email or web address] ncyGuide to download your free copy documented in this encounter [facility] 08-20-2024 Note HNO ID: [id number] Author: YOSHI WEST RN Service: ? Author [...] after this dose. PIV removed, DSD place. [facility] 08-20-2024 History of Present illness Narrative Pt [...] this encounter [facility] 08-17-2024 Note HNO ID: [id number] Author: YOSHI WEST RN Service: ? Author Type: Registered Nurse Type: Progress Notes Filed: 08/17/2024 15:31 Note Text: Pt arrived in stable condition. VSS. Appears well, Pt states the evening after 1st dose of iron she developed itching/pruritus without hives or rash. OBgyn vp construction notified and pt took benedryl and zyrtec [...] no concerns or need noted. Ambulated to [facility]. [facility] 08-17-2024 History of Present illness Narrative Pt arrived in stable condition. VSS. Appears well, Pt states the evening after 1st dose of iron she developed itching/pruritus without hives or rash. OBgyn vp construction notified and pt took benedryl and zyrtec [...] no concerns or need noted. Ambulated to [facility]. documented in this encounter [facility] 08-12-2024 Note HNO ID: [id number] Author: YOSHI WEST RN Service: ? Author [...] pain, chills or discomfort. Pt ambulated to [facility] no concerns. [facility] 08-12-2024 History of Present illness Narrative Pt [...] pain, chills or discomfort. Pt ambulated to lobby no concerns. documented in this encounter [facility] 08-10-2024 Progress note Formatting of t his [...] Plans unless EFW less than prior . Paroxysmal SVT (supraventricular tachycardia) (HCC) On metoprolol Reviewed PTL & FM precautions Prabhu Ortez MD [facility] 08-10-2024 Miscellaneous Notes KJ - S: Keagan [...] Plans unless EFW less than prior . Paroxysmal SVT (supraventricular tachycardia) (HCC) On metoprolol Reviewed PTL & FM precautions Prabhu Ortez MD documented in this encounter [facility] 08-10-2024 Instructions Alyx Cordero MA - 08/10/2024 11:25 AM EDT SEQUENTIAL SCREENINGS The [facility] offers sequential screenings for women who are [...] It will require an appointment with our geochemical laboratory technician. This is not an ultrasound performed [...] the above symptoms, contact our office at [phone] and ask to speak with a nurse. After hours, you can call doctors registry at [phone] OR call [facility] at [phone] and ask to have the doctor vp construction paged. If you consider this an emergency, dial 9-2-9 or go to your nearest emergency department. NEED HELP? Are you dealing with a violent or abusive relationship? Are you a victim of rape or sexual assult? Call [facility] [place] [facility] 24 hour Crisis Hotline: 994.114.4454 or 682-128-7818. MANUAL Your Guide to a Healthy manual is now on-line. Visit [email or web address] ncyGuide to download your free copy documented in this encounter [facility] 08-05-2024 Instructions Nayely Gil PA-C - 08/05/2024 3:25 PM EDT Images from the original note were not included. Summary of today's visit: - You have iron deficiency anemia and require IV iron infusions. - We are in the process of arranging IV iron infusions for you at [facility]. Once the clinic has processed the referral, someone will contact you to schedule appointments. Insurance preauthorization may be required and can take 7 - 14 days. Please call the infusion center directly at [phone] to schedule an appointment if you don't [...] with multiples. Not consuming enough iron. Having adgg-mw-njxn pregnancies with minimal time between. Experiencing a [...] notice a change? If you have iron-deficiency, R94-arrsflgqgw or folate-deficiency anemia, you should begin to [...] any other symptoms, talk to your provider. Amalia / Prognosis What is the outlook for [...] note from [facility] You may be slightly anemic during because blood volume increases by 20% to 30%. Keeping your diet rich in iron, vitamin C and B vitamins helps correct and prevent anemia. Taking a daily vitamin can help, too. Talk to your provider about your risk of anemia during and any concerns you may have. Information obtained from: [facility] (https://my.[facility]/h ealth/diseases/46522-ozhuoq-gqxwi g-). References Abu-Lino NM, Edwin MM. The impact of maternal iron deficiency and iron deficiency anemia on child's health (https://www.ncbi.nlm.nih.gov/pmc /articles/QAA8867561/). [place] Med J. 2015;36(2):146-149. Accessed 07/05/2021. [employer]. Peptic Ulcer Disease (https://gi.org/topics/peptic-ulc er-disease/). Accessed 07/05/2021. [employer] Association. Anemia During (https://americanpregnancy.org/he althy-/-concern s/wubnoq-sxgxlr-ksucgajtp/). Accessed 07/05/2021. [employer] Society of Hematology. Anemia and (https://www.hematology.org/educa tion/patients/anemia/). Accessed 07/05/2021. Coreen Kenyon. Chronic Anemia (https://www.ncbi.nlm.nih.gov/sosa ks/EOO787036/). [Updated 2020Sep 20]. In: IActionable [Internet]. [facility]): [employer]; 2020. Accessed 07/05/2021. [employer]. Anemia (https://www.marchofdimes.org/com plications/anemia.aspx). Accessed 07/05/2021. National Gamaliel of Diabetes and Digestive and Kidney Diseases. [...] can easily correct the condition with treatment. Amalia / Prognosis What s the outlook for [...] need to see another specialist like a paid search manager or manager implementation if bleeding is determined to be the [...] note from [facility] We all have days when our responsibilities outweigh the amount of energy we have. But if you have iron-deficiency anemia, you might not be able to shake those feelings of fatigue. Tell your healthcare provider if you re tired all the time. They can run tests to determine a cause and recommend appropriate treatment. Information obtained from [facility] (https://.[facility]/h ealt/diseases/06073-dqnc-apyyffi ncy-anemia) References [employer] Society of Hematology. Iron (https://www.hematology.org/educa tion/patients/anemia/iron-deficie ncy)- (https://www.hematology.org/educa tion/patients/anemia/iron-deficie ncy)Deficiency Anemia (https://www.hematology.org/educa tion/patients/anemia/iron-deficie ncy). (https://www.hematology.org/educa tion/patients/anemia/iron-deficie ncy) Accessed 01/21/2024. OpenCloud Manual, Professional Version. Iron Deficiency Anemia (https://www.ChirpVision/pro fessional/xgrbmdmaug-gla-rjflhrcz /heypwvz-nrjdjj-jf-deficient-eryt hropoiesis/itwz-nirgxjnwgx-ogihzm ). (https://www.ChirpVision/pro fessional/bhxxbekpdo-dww-gyeyvrks /pngcesh-gsezkw-kw-deficient-eryt hropoiesis/xgox-xdrjrckirl-digmsm ) Last reviewed 07/2022. Accessed 01/21/2024. National Heart, Lung, and Blood Gamaliel ([place].). Iron (https://www.nhlbi.nih.gov/health /anemia/mxzj-ldakbgbxqf-hdqaau)- (https://www.nhlbi.nih.gov/health /anemia/wskf-ajpjhjeykf-tjumul)De ficiency Anemia (https://www.nhlbi.nih.gov/health /anemia/cccg-thxcqpfjjr-hlhqkl). (https://www.nhlbi.nih.gov/health /anemia/effa-nmyndfjziw-svnjfw) Last updated 05/03/2021. Accessed 01/21/2024. Lucia Pereira. Iron Supplementation (https://www.ncbi.nlm.nih.gov/sosa ks/NRI897708/). (https://www.ncbi.nlm.nih.gov/sosa ks/NML279238/) In: IActionable [Internet]. [facility]): [employer]; 2023-. Accessed 01/21/2024. Iron Infusion Iron is [...] rash over your entire body). Recovery and Amalia How long does it take to recover from an iron infusion? People usually feel better a few days to a week after an iron infusion. When To Call the Doctor When should I see my healthcare provider? Contact your provider if you have side effects that you can t manage. A note from [facility] Taking iron supplements by mouth works for [...] that isn t clear. Information obtained from [facility] (https://my.[facility].org/h ealt/treatments/73142-icstxynvjw t-srvv-oinjprhhenaenmy) References [employer] Society of Hematology. Iron-Deficiency Anemia (http://www.hematology.org/Patien ts/Anemia/Iron-Deficiency.aspx). Accessed 10/09/2022. Agapito Mckeon. Iron infusion and newer intravenous iron formulations (https://pubmed.ncbi.nlm.nih.gov/ 84614946/). Chin Med J (Engl). 2020;134(15):4125-1373. Published 2020July 07. Accessed 10/09/2022. OpenCloud Manual Professional Version. Iron Deficiency Anemia (https://www.ChirpVision/pro fessional/zkrrtcahar-kgr-gqobibgl /ukjbxuo-ujwrrs-rn-deficient-eryt hropoiesis/hubb-hkplqjehfi-pmeebw ). Last revised 07/2022. Accessed 10/09/2022. National Heart, Lung, and Blood Gamaliel (U.S.). Multiple pages reviewed. legalPAD Library of Livemap (U.S.). Dailymed. Ferumoxytol injection (https://dailymed.Bug Music.Daily Deals for Moms.gov/edgardo lymed/drugInfo.cfm?setid=[email or web address] -[email or web address]&maryjane ence=consumer). Last revised 08/06/2021. Accessed 10/09/2022. legalPAD Library of Livemap (U.S.). Dailymed. Monoferric -- ferric derisomaltose injection, solution (https://dailyGrowOp Technology.Bug Music.nih.gov/edgardo lymed/drugInfo.cfm?ofgbh=67965h0y -8700-5pg1-v74v1wz3-y46v-h579vtnf54wq). Last revised 09/28/2021. Accessed 10/09/2022. Mayra T, Thom C, Nigel PÉREZ, et al. Questions and answers on iron deficiency treatment selection and the use of intravenous iron in routine clinical practice (https://pubmed.ncbi.nlm.nih.gov/ 76809964/). Yoana Med. 2020;53(1):274-285. Accessed 10/09/2022. Iron sucrose: Patient drug information What is this medication? IRON SUCROSE (EYE nimral COLLEEN krose) treats low levels of iron (iron deficiency anemia) in people with kidney disease. Iron is a mineral that plays an important role in making red blood cells, which carry oxygen from your lungs to the rest of your body. This medicine may be used for other purposes; ask your health care provider or pharmacist if you have questions. COMMON BRAND NAME(S): Venofer What should I tell my care team [...] may report side effects to FDA at 1-676-PJI-3707. Where should I keep my medication? This medication is given in a hospital or clinic and will not be stored at home. NOTE: This sheet is a summary. It may not cover all possible information. If you have questions about this medicine, talk to your doctor, pharmacist, or health care provider. Information obtained from [facility] (https://my.[facility]/ ealt/drugs/97770-kzai-ftiyrpx-ln jection) documented in this encounter [facility] 08-05-2024 History of Present illness Narrative [facility] DEPARTMENT OF PATIENT BLOOD MANAGEMENT INITIAL DISTANCE HEALTH VISIT I have communicated my name and active licensure. The patient's identity and physical location were verified at the time of this visit. No patient name on file. or their legal billing representative has been informed of the risks and benefits of -- and alternatives to -- treatment through a remote evaluation and consents to proceed with the evaluation remotely. This is a virtual visit using Gynzyhart Zoom Video Visit. It required patient-provider interaction for [...] use. Vape prior to . Lives in [place]. 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 Medical/Surgical History: PAST MEDICAL HISTORY Diagnosis Date Anemia Chronic tonsillitis Depression 10/08/2016 Gall stone 07/2022 cholecystectomy after delivery GERD (gastroesophageal reflux disease) H/O shoulder dystocia in prior , currently ([facility]) 12/14/22 Hemorrhoids History of back problems History of depression History of shoulder dystocia in prior 03/10/2024 Kidney stones Paroxysmal SVT (supraventricular tachycardia) ([facility]) Postoperative pulmonary embolism ([facility]) 06/2023 Psychiatric disorder depression, anxiety and PTSD PAST SURGICAL HISTORY Procedure Laterality Date CHOLECYSTECTOMY HX 06/17/2023 [facility] IUD REMOVAL 09/15/2023 PT ED HEART AND [...] infusion x 4 doses was signed for [facility]. - Recommend to recheck labs [...] which included preparing to see the patient, xpgz-mv-oqhi patient care, completing clinical documentation, counseling and educating the patient/family/caregiver, ordering medications, tests, or procedures, independently interpreting results (not separately reported), communicating results to the patient/family/caregiver, and care coordination (not separately reported) Nayely Gil PA-C Department of Blood Management August 05, 2024 CC: Referring Provider: Jaquelin Hi APRN.CNM PCP: Rachell Amador APRN.SERVICE LEARNING COORDINATOR documented in this encounter [facility] 08-05-2024 Note HNO ID: [id number] Author: NAYELY GIL PA-C Service: ? Author Type: Physician Alteration Manager Type: Progress Notes Filed: 08/05/2024 15:28 Note Text: [facility] DEPARTMENT OF PATIENT BLOOD MANAGEMENT INITIAL DISTANCE HEALTH VISIT I have communicated my name and active licensure. The patient's identity and physical location were verified at the time of this visit. No patient name on file. or their legal billing representative has been informed of the risks and benefits of -- and alternatives to -- treatment through a remote evaluation and consents to proceed with the evaluation remotely. This is a virtual visit using Gynzyhart Zoom Video Visit. It required patient-provider interaction for [...] use. Vape prior to . Lives in [place]. 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 Medical/Surgical History: PAST MEDICAL HISTORY Diagnosis Date Anemia Chronic tonsillitis Depression 10/08/2016 Gall stone 07/2022 cholecystectomy after delivery GERD (gastroesophageal reflux disease) H/O shoulder dystocia in prior , currently ([facility]) 12/14/22 Hemorrhoids History of back problems History of depression History of shoulder dystocia in prior 03/10/2024 Kidney stones Paroxysmal SVT (supraventricular tachycardia) ([facility]) Postoperative pulmonary embolism ([facility]) 06/2023 Psychiatric disorder depression, anxiety and PTSD PAST SURGICAL HISTORY Procedure Laterality Date CHOLECYSTECTOMY HX 06/17/2023 [facility] IUD REMOVAL 09/15/2023 PT ED HEART AND [...] 07/27/2024 9.5 (L) (more content not included)... [facility] 08-03-2024 Evaluation note Diagnosis Onset Date Resolution Headache in acute Jul 1:17pm [facility] Work Phone: 1(926) 316-473606-24-2025 Evaluation note* Diagnosis Onset Date Resolution Status Admit Date Headache in acute Jul 1:17pm High risk multigravida in th ird trimester acute September 07, 2024 10:50pm Threatened labor acute September 07, 2024 10:50pm arrhythmia affecting , antepartum acute September 09, 2024 11:09am High risk multigravida in th ird trimester acute September 09, 2024 11:09am History of delivery acute September 09, 2024 11:09am Threatened labor acute September 09, 2024 11:09am Vaginal discharge acute September 092024 11:09am [facility] Work Phone: 1(693) 479-364806-24-2025 Telephone encounter Note* Telephone Encounter - Chantelle Marquis RN - 08/03/2024 1:47 PM EDT Patient is currently at L&D. Chantelle Marquis RN [facility]06-24-2025 Miscellaneous Notes* Telephone Encounter - Chantelle Marquis RN - 08/03/2024 1:47 PM EDT Patient is currently at L&D. Chantelle Marquis RN * Telephone Encounter - Prabhu Ortez MD - 08/03/2024 11:48 AM EDT I can see patient at 1pm today. Prabhu Ortez MD * Telephone Encounter - Juliane Martin RN - 08/03/2024 10:41 AM EDT Pt returns call re:Iron infusions and how often this would need done. Informed her Blood managementwould be in contact with her soon to [...] states she has a heart appt in [place] (Hx Paroxysmal SVT) at 11:45am and will go to [facility] ER/ L&D after that to be assessed for Pre-e. Advised Pt message would be sent to KJ and if she had alternative guidance we would be in contact with her. Pt voiced understanding. Juliane Martin RN * Telephone Encounter - Jaquelin Hi APRN.CNM - 08/02/2024 2:30 PM EDT Agree with plan and would recommend appointment. Thank you, Jaquelin Hi APRN.CNM * Telephone Encounter - Juliane Martin RN - 08/02/2024 2:07 PM EDT 29w5d See [employer] message. Tried reaching patient via phone; however, went straight to voicemail. Sent Ptmychart reply and advised she go straight to ER with symptoms listed. Juliane Martin RN [facility] Telephone encounter Note * Telephone Encounter - Prabhu Ortez MD - 08/03/2024 11:48 AM EDT I can see patient at 1pm today. Prabhu Ortez MD [facility]06-24-2025 History of Present illness Narrative* Ramiro Hugo MD - 08/03/2024 11:45 AM EDT Images from the original note [...] Smokes marijuana every other day FamHx: pGF CT in 30 Objective Current Outpatient Medications Medication Instructions folic acid (FOLVITE) 1 mg, Daily metoprolol tartrate (LOPRESSOR) 25 mg, oral, 2 times daily norethindrone (AYGESTIN) 5 mg, Daily RT [id number] 6-DHA ORAL Take by mouth. Visit Vitals [...] Study(s): Results DIAGNOSTIC EKG: Normal (08/03/2024) 14-day medical attendant (July 2023): Predominant rhythm sinus with average heart rate 95 bpm. Few episodes of SVT longest lasting 3 minutes 44 seconds with short to mid RP tachycardia. There is also wide-complex tachycardic episode which likely is SVT with aberrancy Echo (August 2023): [facility] echo report showed Normal LVEF 55-60%. Normal right ventricular size and function. No significant valvular pathology is no pericardial effusions. 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 Symptoms includelightheadedness and dizziness, exacerbated during . Current management [...] Clinic in 6 months Ramiro Hugo MD [facility] Cardiac Electrophysiology [email or web address] Disclaimer: This note was dictated by speech recognition, and every effort has been made to prevent any error in scaffold erector, however minor errors may be present This medical note was created with the assistance of artificial intelligence (AI) for documentationpurposes. The content has been reviewed and confirmed by the healthcare provider for accuracy and completeness. Patient consented to the use of audio recording and use of AI during their visit. [facility] Phone: 1(352) 397-464806-24-2025 Telephone encounter Note* Telephone Encounter - Juliane Martin RN - 08/03/2024 10:41 AM EDT Pt returns call re:Iron infusions and how often this would need done. Informed her Blood managementwould be in contact with her soon to review this. This RN asked Pt about [employer] message she sent yesterday. Pt states her [...] states she has a heart appt in [place] (Hx Paroxysmal SVT) at 11:45am and will go to [facility] ER/ L&D after that to be assessed for Pre-e. Advised Pt message would be sent to KJ and if she had alternative guidance we would be in contact with her. Pt voiced understanding. Juliane Martin RN [facility]06-23-2025 Telephone encounter Note* Telephone Encounter - Jaquelin Hi APRN.CNM - 08/02/2024 2:30 PM EDT Agree with plan and would recommend appointment. Thank you, Jaquelin Hi APRN.CNM [facility]06-23-2025 Telephone encounter Note* Telephone Encounter - Juliane Martin RN - 08/02/2024 2:07 PM EDT 29w5d See [employer] message. Tried reaching patient via phone; however, went straight to voicemail. Sent Ptmychart reply and advised she go straight to ER with symptoms listed. Juliane Martin RN [facility]06-18-2025 Telephone encounter Note* Telephone Encounter - Josefa Ricks RN - 07/28/2024 8:27 AM EDT 3rd risk assessment form submitted 07/28/24 Josefa Ricks RN [facility]06-18-2025 Miscellaneous Notes* Telephone Encounter - Josefa Ricks RN - 07/28/2024 8:27 AM EDT 3rd risk assessment form submitted 07/28/24 Josefa Ricks RN documented in this [facility] Progress note* Quick Notes - Yamila Ballard MD - 07/27/2024 1:58 PM EDT RR- VB No. LOF No. CTXS No. Movement: present. Other c/o: heartburn, pepcid not helping Medication list reviewed. SENSITIVE EXAM: Sensitive exam not performed. Physical Exam See Flow Sheet Abd: soft, nontender, gravid Ext: edema: Trace A/P 28w6d Estimated Date of Delivery: 10/13/24 Assessment & Plan 28 weeks gestation of ([facility]) Supervision of other high risk pregnancies, second trimester ([facility]) Rh negative state in antepartum period ([facility]) rh prohylaxis Need for vaccination desires [...] during , antepartum, third trimester ([facility]) d/c pepcid, trial prevacid Yamila Ballard M.D. [facility]06-17-2025 Miscellaneous Notes* Quick Notes - Yamila Ballard MD - 07/27/2024 1:58 PM EDT RR- VB No. LOF No. CTXS No. Movement: present. Other c/o: heartburn, pepcid not helping Medication list reviewed. SENSITIVE EXAM: Sensitive exam not performed. Physical Exam See Flow Sheet Abd: soft, nontender, gravid Ext: edema: Trace A/P 28w6d Estimated Date of Delivery: 10/13/24 Assessment & Plan 28 weeks gestation of ([facility]) Supervision of other high risk pregnancies, second trimester ([facility]) Rh negative state in antepartum period ([facility]) rh prohylaxis Need for vaccination desires [...] prevacid Yamila Ballard M.D. documented in this encounter[facility]25 NoteHNO ID: [id number] Author: IVETH KOHLI RN Service: ? Author [...] severely ill: Yes Patient denies history of Guillain-[place] Syndrome (a severe paralytic illness): Yes Tdap Adacel injection was given without incident. See immunizations for details of immunizations administered today. VIS sheet provided: Yes Provider Dr. Ballard was present in office at time of injection. Iveth Kohli RN Keagan Ricki 23 year old is here for her injection of Rhophylac. Keagan Wolfwhitney Antibody Screen (no units) Date Value 04/07/2024 Negative Keagan Alicia is RH Negative Rhophylac was given without incident. See immunizations for details of immunizations administered today. Provider Dr. Ballard was present in office at time of injection Keagan Alicia was given her Rhophylac pocket card. Iveth Kohli [facility] History of Present illness Narrative* Iveth Kohli RN - 07/27/2024 1:22 PM EDT Patient identified by name and date of [...] severely ill: Yes Patient denies history of Guillain-[place] Syndrome (a severe paralytic illness): Yes Tdap [...] card. Iveth Kohli RN documented in this encounter[facility] Instructions* Patient Instructions* Joyce Clark MA - 07/27/2024 1:20 PM EDT SEQUENTIAL SCREENINGS The [facility] offers sequential screenings for women who are [...] testing. It will require an appointment withour geochemical laboratory technician. This is not an ultrasound performed [...] the above symptoms, contact our office at [phone] and ask to speak with anurse. After hours, you can call doctors registry at [phone] OR call [facility] at [phone] ask to have the doctor vp construction paged. If you consider this an emergency, dial 3- or go to your nearest emergency department. NEED HELP? Are you dealing with a violent or abusive relationship? Are you a victim of rape or sexual assult? Call [facility] ([place]) 24 hour Crisis Hotline: 355.304.6657 or 126-231-9131. MANUAL Your Guide to a Healthy manual is now on-line. Visit [email or web address]/HealthyPregnancyGuide to download your free copy documented in this encounterSelect [facility]-2025 NoteHNO ID: [id number] Author: JAQUELIN HI APRN.CNM Service: ? Author Type: Academy Education Director Type: Progress Notes Filed: 06/29/2024 15:21 Note Text:[facility]05-20-2025 NoteHNO ID: [id number] Author: JAQUELIN HI APRN.CNM Service: ? Author Type: Academy Education Director Type: Progress Notes Filed: 06/29/2024 15:32 Note [...] and when to call RTO in 4 weeksLouis [facility]04-23-2025 Miscellaneous Notes* Telephone Encounter - Josefa Ricks RN - 06/02/2024 8:48 AM EDT 2nd risk assessment form submitted 06/02/24 Josefa Ricks RN documented in this encounterSelect [facility] Telephone encounter Note * Telephone Encounter - Josefa Ricks RN - 06/02/2024 8:48 AM EDT 2nd risk assessment form submitted 06/02/24 Josefa Ricks RN [facility]04-22-2025 NoteHNO ID: [id number] Author: JAQUELIN HI APRN.CNM Service: ? Author Type: Academy Education Director Type: Progress Notes Filed: 06/29/2024 15:21 Note Text:[facility]04-22-2025 History of Present illness Narrative* Jaquelin Hi APRN.CNM - 06/01/2024 10:18 AM EDT ITZEL-S: Keagan Alicia is a 23 year old female who presents at 20w6d with LUZ:10/13/2024, by Last Menstrual Period for a routine visit. Denies headache, visual changes, chest pain, shortness of breath,vaginal bleeding, leakage of fluid, or dysuria. Feeling [...] and no anticoagulation needed during . Consider coagulationafter delivery if additional risk factor (, prolonged [...] weeks Jaquelin Hi APRN.CNM documented in this encounterSelect [facility]-2025 Instructions* Patient Instructions* Jaquelin Hi APRN.CNM - 06/01/2024 9:43 AM EDT [facility] [address] [place] [address] [id number] [facility] [address] [place] [address] [facility] [place] [address] [facility] [address] [place] [address] [email or web address] [address] [place] [address] [facility] [address] [place] [address] [email or web address] [address], [place] [address] [email or web address] [facility] [phone] [employer] [address] [place] [address] [facility] [address] [address] [facility] [place] office also [phone] [email or web address] [facility] [phone] [address] [facility] [address] [place] [address] [facility], [facility] - [address] [address] [email or web address] [facility] [address] [place], [place] [id number] [email or web address] SIGNS AND SYMPTOMS OF LABOR 1. Contractions every 10 minutes or more often 2. Clear, pink, or brownish fluid (water) leaking from vagina 3. Feeling that baby is pushing down, pressure 4. Low, dull backache 5. Cramps that feel like a period 6. Cramps with or without diarrhea If you notice any of the above symptoms, contact our office at [phone] and ask to speak with anurse. After hours, you can call doctors registry at [phone] OR call [facility] at [phone] ask to have the doctor vp construction paged. If you consider this an emergency, dial [phone]--1 or go to your nearest emergency department. NEED HELP? Are you dealing with a violent or abusive relationship? Are you a victim of rape or sexual assult? Call [facility] ([place]) 24 hour Crisis Hotline: 106.571.1540 or 001-463-0268. MANUAL Your Guide to a Healthy manual is now on-line. Visit [email or web address] to download your free copy documented in this encounterSelect [facility]-2025 Telephone encounter Note * Telephone Encounter - Antionette Ward RN - 05/11/2024 12:39 PM EDT Order signed and faxed. Antionette Ward RN [facility]04-01-2025 Miscellaneous Notes* Telephone Encounter - Antionette Ward RN - 05/11/2024 12:39 PM EDT Order signed and faxed. Antionette Ward RN * Telephone Encounter - Chantelle Marquis RN - 05/10/2024 8:51 AM EDT Received breast pump RX from [employer]. To HILARIA to sign. Chantelle Marquis RN documented in this encounterSelect Medical [facility]03-31-2025 Telephone encounter Note * Telephone Encounter - Chantelle Marquis RN - 05/10/2024 8:51 AM EDT Received breast pump RX from [employer]. To HILARIA to sign. Chantelle Marquis, RN [facility]03-25-2025 Progress note* Quick Notes - Jaquelin Hi APRN.CNM - 05/04/2024 2:50 PM EDT ITZEL-S: Keagan Alicia is a 23 year old female who presents at 16w6d with LUZ:10/13/2024, by Last Menstrual Period for a routine visit. Denies headache, visual changes, chest pain, shortness of breath,vaginal bleeding, leakage of fluid, or dysuria. Feeling [...] and no anticoagulation needed during . Consider coagulationafter delivery if additional risk factor (, prolonged [...] Hi APRN.CNM [facility]03-25-2025 Miscellaneous Notes* Quick Notes - Jaquelin Hi APRN.CNM - 05/04/2024 2:50 PM EDT ITZEL-S: Keagan Alicia is a 23 year old female who presents at 16w6d with LUZ:10/13/2024, by Last Menstrual Period for a routine visit. Denies headache, visual changes, chest pain, shortness of breath,vaginal bleeding, leakage of fluid, or dysuria. Feeling [...] and no anticoagulation needed during . Consider coagulationafter delivery if additional risk factor (, prolonged [...] weeks Jaquelin Hi APRN.CNM documented in this encounterSelect Medical [facility]03-25-2025 Instructions* Patient Instructions* Steven Cruz MA - 05/04/2024 2:31 PM EDT SEQUENTIAL SCREENINGS The [facility] offers sequential screenings for women who are [...] testing. It will require an appointment withour geochemical laboratory technician. This is not an ultrasound performed [...] the above symptoms, contact our office at [phone] and ask to speak with anurse. After hours, you can call doctors registry at [phone] OR call [facility] at [phone] ask to have the doctor vp construction paged. If you consider this an emergency, dial 6-6-1 or go to your nearest emergency department. NEED HELP? Are you dealing with a violent or abusive relationship? Are you a victim of rape or sexual assult? Call [facility] ([place]) 24 hour Crisis Hotline: 887.581.6506 or 574-047-7259. MANUAL Your Guide to a Healthy manual is now on-line. Visit [email or web address] to download your free copy documented in this encounterSelect [facility]02-26-2025 Progress note* Quick Notes - Jaquelin Hi APRN.CNM - 04/07/2024 3:24 PM EST ITZEL-S: Keagan Alicia is a 23 year old female who presents at 13w0d with LUZ:10/13/2024, by Last Menstrual Period for a routine visit. Denies headache, visual changes, chest pain, shortness of breath,vaginal bleeding, leakage of fluid, or dysuria. Feeling [...] and no anticoagulation needed during . Consider coagulationafter delivery if additional risk factor (, prolonged hospitalization) 6. History of shoulder dystocia in prior -Will discuss at future appointment, requesting delivery record 7. History of depression -No medication at this time, coping well 8. Rh negative state in antepartum period -Rhogam at 28wk PTL precautions reviewed and when to call RTO in 4 weeks Jaquelin Hi APRN.CNM [facility] [facility] Miscellaneous Notes* Quick Notes - Jaquelin Hi APRN.CNM - 04/07/2024 3:24 PM EST ITZEL-S: Keagan Alicia is a 23 year old female who presents at 13w0d with LUZ:10/13/2024, by Last Menstrual Period for a routine visit. Denies headache, visual changes, chest pain, shortness of breath,vaginal bleeding, leakage of fluid, or dysuria. Feeling [...] and no anticoagulation needed during . Consider coagulationafter delivery if additional risk factor (, prolonged hospitalization) 6. History of shoulder dystocia in prior -Will discuss at future appointment, requesting delivery record 7. History of depression -No medication at this time, coping well 8. Rh negative state in antepartum period -Rhogam at 28wk PTL precautions reviewed and when to call RTO in 4 weeks Jaquelin Hi APRN.CNM documented in [facility] encounterSelect [facility] Instructions* Patient Instructions* Alisha Jordan LPN - 04/07/2024 2:45 PM EST SEQUENTIAL SCREENINGS The [facility] offers sequential screenings for women who are [...] testing. It will require an appointment withour geochemical laboratory technician. This is not an ultrasound performed [...] the above symptoms, contact our office at [phone] and ask to speak with anurse. After hours, you can call doctors registry at [phone] OR call [facility] at [phone] ask to have the doctor vp construction paged. If you consider this an emergency, dial 9-0-7 or go to your nearest emergency department. NEED HELP? Are you dealing with a violent or abusive relationship? Are you a victim of rape or sexual assult? Call [facility] ([place]) 24 hour Crisis Hotline: 417.456.5336 or 868-643-4206. MANUAL Your Guide to a Healthy manual is now on-line. Visit [email or web address] to download your free copy documented in this [facility]Select [facility] Progress note* Quick Notes - Jaquelin Hi APRN.CNM - 03/17/2024 3:09 PM EST DISTANCE HEALTH VISIT This Team Access Model visit is a virtual encounter. It required patient- provider interaction for the medical decision making as [...] ICD9: V12.55, ICD10: Z86.711 -Reviewed discussed with M and does not need anticoagulation at this [...] with more than 50% of the total nudk-mw-[id number] time of the visit in counseling / coordination of care. [facility]02-05-2025 Miscellaneous Notes* Quick Notes - aJquelin Hi APRN.CNM - 03/17/2024 3:09 PM EST DISTANCE HEALTH VISIT This Team Access Model visit is a virtual encounter. It required patient- provider interaction for the medical decision making as [...] ICD9: V12.55, ICD10: Z86.711 -Reviewed discussed with M and does not need anticoagulation at this [...] with more than 50% of the total kksa-jp-xskb time of the visit in counseling / coordination of care. documented in this encounterSelect Medical [facility]2025 NoteHNO ID: [id number] Author: JAQUELIN HI APRN.CNM Service: ? Author Type: Academy Education Director Type: Progress Notes Filed: 03/17/2024 15:23 Note Text:[facility]02-04-2025 History of Present illness Narrative* Jaquelin Hi APRN.CNM - 03/16/2024 10:30 AM EST documented in this encounterSelect [facility] Telephone encounter Note * Telephone Encounter - Chantelle Rodriguez RN - 03/11/2024 10:56 AM EST 1st risk assessment form submitted 03/11/2024. Chantelle Rodriguez RN [facility]01-30-2025 Miscellaneous Notes* Telephone Encounter - Chantelle Rodriguez RN - 03/11/2024 10:56 AM EST 1st risk assessment form submitted 03/11/2024. Chantelle Rodriguez RN documented in this encounterSelect Medical [facility]25 [id number] (AGENT OF COVID-19) RNA: Not detected INFLUENZA A RNA: Detected INFLUENZA B RNA: Not detected RESPIRATORY SYNCYTIAL VIRUS (RSV) RNA: Not detectedCalais Regional HospitalComment on above:Performed By: #### [id number] ####[facility] LABIA [id number] [place], [place] [id number] [place] [address] OF [id number] Note* Addendum Note - Jaquelin Hi APRN.CNM - 03/10/2024 12:01 PM ESTAddended by: JAQUELIN HI on: 03/10/2024 12:01 PM Modules accepted: Orders [facility]01-29-2025 Miscellaneous Notes* Addendum Note - Jaquelin Hi APRN.CNM - 03/10/2024 12:01 PM ESTAddended by: JAQUELIN HI on: 03/10/2024 12:01 PM Modules accepted: Orders * Quick Notes - Jaquelin Hi APRN.CNM - 03/10/2024 11:58 AM EST YENNY, see progress note. LMP consistent with US today. Jaquelin Hi APRN.CNM documented in this encounterSelect Medical [facility] Progress note* Quick Notes - Jaquelin Hi APRN.CNM - 03/10/2024 11:58 AM EST YENNY, see progress note. LMP consistent with US today. Jaquelin Hi APRN.CNM [facility]01-28-2025 NoteHNO ID: [id number] Author: JAQUELIN HI APRN.CNM Service: ? 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 Gender: Male PAST MEDICAL HISTORY Diagnosis Date Anemia Chronic tonsillitis Depression 10/08/2016 Gall stone 07/2022 cholecystectomy after delivery GERD (gastroesophageal reflux disease) H/O shoulder dystocia in prior , currentl (more content not included)...[facility]01-28-2025 History of Present illness Narrative* Jaquelin Hi APRN.FRANDY - 03/09/2024 11:52 AM EST INITIAL OB ASSESSMENT HPI: Keagan is a [...] Status: Partner: Name: Te 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 As applicable, any other physician, advance practice provider, medical student, or other health professional student that will be observing or involved in the sensitive examination for educational or training purposes was discussed with the Patient or Authorized Head Of Marketing Analytics. The Patient or Authorized Head Of Marketing Analytics has agreed to proceed with the sensitive [...] to rescreen early third trimester. Jaquelin Hi APRN.CNM ASSESSMENT: 23 year old at 8w6d wks [...] aneuploidy screening was provided. The patient chooses toproceed with First trimester early anatomy ultrasound (12-13w6d) [...] adoption resources. Uncertain how she would like toproceed with the but would like to continue routine care at this time. Emotionalsupport provided. Will discuss history further at next [...] weeks or sooner prn. Jaquelin Hi APRN.CNM * Jaquelin Hi APRN.CNM - 03/05/2024 1:43 PM EST documented in this encounterSelect Medical [facility]-2025 NoteHNO ID: [id number] Author: JAQUELIN HI APRN.CNM Service: ? Author Type: Academy Education Director Type: Progress Notes Filed: 03/10/2024 11:59 Note Text:[facility]01-24-2025 Instructions* Patient Instructions* Jaquelin Hi APRN.CNM - 03/05/2024 1:43 PM EST Please select the following link to access the [facility] Your Guide to a Healthy . [email or web address] documented in this encounterSelect Medical [facility]2025 NoteHNO ID: [id number] Author: LILLIAN ROCHA LPN Service: ? Author [...] seen in the Emergency Department (ED) [facility] Date: 02/18/2024 Reason for ED Visit: [...] pt she is feeling better. Lillian Rocha [facility]01-16-2025 History of Present illness Narrative* Lillian Rocha LPN - 02/26/2024 10:31 AM EST ED Follow-Up Note Provider Action / FYI: Call completed by: FREDERICK Patient seen in ED: Out of Network ED Contact made with Patient: Yes The patient was identified by Name and Date of . Discussed Care with: patient Patient was seen in the Emergency Department (ED) Location: [facility] Date: 02/18/2024 Reason for ED Visit: [...] she is feeling better. Lillian Rocha LPN * Lillian Rocha LPN - 02/26/2024 10:15 AM EST ED Follow-Up Note Provider Action / FYI: Call completed by: FREDERICK Patient seen in ED: Out of Network ED Contact made with Patient: No, left message. Lillian Rocha LPN February 26, 2024 10:19 AM documented in this encounterSelect Medical [facility]-2025 NoteHNO ID: [id number] Author: LILLIAN ROCHA LPN Service: ? Author Type: LICENSED NURSE Type: Progress Notes Filed: 02/26/2024 10:20 Note Text: ED Follow-Up Note Provider Action / FYI: Call completed by: FREDERICK Patient seen in ED: Out of Network ED Contact made with Patient: No, left message. Lillian Rocha LPN February 26, 2024 10:19 [facility]01-16-[facility] NotePatient Outreach (AGFAMPLE) KEAGAN ALICIA ([id number]) 4 F Date Time Provider Department 02/26/24 ARCHELL AMADOR During your visit today, we recorded [...] seen in the Emergency Department (ED) Location[facility] Date: 02/18/2024 Reason for ED Visit: [...] Date Reviewed: 12/26/2023 Reviewed by: Rachell Amador APRN.SERVICE LEARNING COORDINATOR - Fully Assessed Reason for Visit: ER F/U [41] Cmt: [facility] 02/18/2024 Prescriptions as of 02/26/2024 - metoprolol [...] (*09/01/2023 Encounter Status:Closed by LILLIAN ROCHA on 02/26/24[facility] 02-19-2024 Telephone encounter Note* Telephone Encounter - Prabhu Ortez MD - 02/19/2024 4:23 PM EST Noted and agree. Prabhu Ortez MD [facility]01-09-2025 Miscellaneous Notes* Telephone Encounter - Prabhu Ortez MD - 02/19/2024 4:23 PM EST Noted and agree. Prabhu Ortez MD * Telephone Encounter - Chantelle Marquis RN - 02/19/2024 4:09 PM EST Spoke with patient. LMP 01/06 approximately 6w1d. Patient was seen at [facility] in [place]. She was given IV fluids and a script for Zofran. No episodes of vomiting since ER visit on Friday.Scheduled patient's NOB visit appropriately and sent additional information regarding N/V in . Chantelle Marquis RN * Telephone Encounter - Juliane Martin RN - 02/19/2024 3:49 PM EST Left message for patient to call office. Need to rescheduled Pt's OB appt as she needs a NEW OB 1STEXAM as well as noting LMP. Juliane Martin RN documented in this encounterSelect Medical [facility] Telephone encounter Note * Telephone Encounter - Chantelle Marquis RN - 02/19/2024 4:09 PM EST Spoke with patient. LMP 01/06 approximately 6w1d. Patient was seen at [facility] in [place]. She was given IV fluids and a script for Zofran. No episodes of vomiting since ER visit on Friday.Scheduled patient's NOB visit appropriately and sent additional information regarding N/V in . Chantelle Marquis RN [facility]01-09-2025 Telephone encounter Note* Telephone Encounter - Juliane Martin RN - 02/19/2024 3:49 PM EST Left message for patient to call office. Need to rescheduled Pt's OB appt as she needs a NEW OB 1STEXAM as well as noting LMP. Juliane Martin RN [facility]01-08-2025 Emergency department Note* Eugene Mccormick, NOA-SERVICE LEARNING COORDINATOR - 02/18/2024 10:46 AM EST Chief Complaint Patient presents with Abdominal Pain Upper abd pain with n/v/d x 3 days I feel dehydrated Patient History Past Medical History: Diagnosis Date Anxiety Depression PTSD (post-traumatic stress disorder) Past Surgical History: Procedure Laterality Date CARDIAC ELECTROPHYSIOLOGY PROCEDURE N/A 10/03/2023 Procedure: Ablation SVT ([id number]); Surgeon: Ramiro Hugo MD; Location: [facility] Cardiac [facility]; Service: Electrophysiology; Laterality: N/A; CHOLECYSTECTOMY 06/17/2023 DR LLANES TONSILLECTOMY Family History Problem Relation Name Age of Onset Heart attack Paternal Grandfather Social History Social History Narrative Not on file Allergies Allergen Reactions Latex Itching PMH: Reviewed PSH: Reviewed Social History: Reviewed. Allergies reviewed. HPI: Keagan Alicia is a 23 y.o. female who presents to the ED today accompanied by her boyfriendwith complaints of n/v/d, feels dehydrated, currently . [...] HCG measurement is performed using the [facility] Access Immunoassay which detects intact HCG and free beta HCG subunit. This test is not indicated for use as a tumor marker. HCG testing is performed using a different test methodology at [facility] than other physicians & surgeons hospital. Direct result comparison should only be made within the same method. HCG, URINE, QUALITATIVE - Abnormal HCG, Urine POSITIVE (*) URINALYSIS WITH REFLEX CULTURE AND MICROSCOPIC - Abnormal Color, Urine Yellow Appearance, Urine Turbid (*) Specific [place], Urine 1.030 pH, Urine 6.0 Protein, Urine [...] Abnormality Status --------- ------ Urinalysis with Reflex C...[[id number]] Abnormal Final result Extra Urine Emerson Tube[[id number]] In process Please view results for these tests on the individual orders. EXTRA URINE EMERSON TUBE US PELVIS OB TRANSABDOMINAL W TRANSVAGINAL UP TO 1ST TRIMESTER Final Result 1. Single live intrauterine . 2. Estimated gestational age: 6 weeks 1 days. LUZ: 10/12/2024. 3. Small subchorionic hemorrhage. MACRO: None Signed by: Samia Valencia 02/18/2024 1:00 PM Dictation workstation: [id number] Medical Decision Making ED COURSE: This patient [...] JONAH Li 02/18/24 1436 documented in [address] [facility] Work Phone: 1(144) 164-799701-08-2025 Physician Emergency department Note* JONAH Li - 02/18/2024 10:46 AM EST Chief Complaint Patient presents with Abdominal Pain Upper abd pain with n/v/d x 3 days I feel dehydrated Patient History Past Medical History: Diagnosis Date Anxiety Depression PTSD (post-traumatic stress disorder) Past Surgical History: Procedure Laterality Date CARDIAC ELECTROPHYSIOLOGY PROCEDURE N/A 10/03/2023 Procedure: Ablation SVT ([id number]); Surgeon: Ramiro Hugo MD; Location: [facility] Cardiac [facility]aler; Service: Electrophysiology; Laterality: N/A; CHOLECYSTECTOMY 06/17/2023 DR LLANES TONSILLECTOMY Family History Problem Relation Name Age of Onset Heart attack Paternal Grandfather Social History Social History Narrative Not on file Allergies Allergen Reactions Latex Itching PMH: Reviewed PSH: Reviewed Social History: Reviewed. Allergies reviewed. HPI: Keagan Alicia is a 23 y.o. female who presents to the ED today accompanied by her boyfriendwith complaints of n/v/d, feels dehydrated, currently . [...] HCG measurement is performed using the [facility] Access Immunoassay which detects intact HCG and free beta HCG subunit. This test is not indicated for use as a tumor marker. HCG testing is performed using a different test methodology at [facility] than other physicians & surgeons hospital. Direct result comparison should only be made within the same method. HCG, URINE, QUALITATIVE - Abnormal HCG, Urine POSITIVE (*) URINALYSIS WITH REFLEX CULTURE AND MICROSCOPIC - Abnormal Color, Urine Yellow Appearance, Urine Turbid (*) Specific [place], Urine 1.030 pH, Urine 6.0 Protein, Urine [...] Abnormality Status --------- ------ Urinalysis with Reflex C...[[id number]] Abnormal Final result Extra Urine Emerson Tube[[id number]] In process Please view results for these tests on the individual orders. EXTRA URINE EMERSON TUBE US PELVIS OB TRANSABDOMINAL W TRANSVAGINAL UP TO 1ST TRIMESTER Final Result 1. Single live intrauterine . 2. Estimated gestational age: 6 weeks 1 days. LUZ: 10/12/2024. 3. Small subchorionic hemorrhage. MACRO: None Signed by: Samia Valencia 02/18/2024 1:00 PM Dictation workstation: [id number] Medical Decision Making ED COURSE: This patient [...] n/v/d #3 hypogylcemia JONAH Li 02/18/[address] [facility] Work Phone: 1(920) 496-215012-17-2024 History of Present illness Narrative* Ramiro Hugo MD - 01/27/2024 9:30 AM EST Images from the original note were not [...] Smokes marijuana every other day FamHx: pGF CT in 30 Objective Current Outpatient Medications Medication [...] normal. My Interpretation of Reviewed Study(s): 14-day medical attendant (July 2023): Predominant rhythm sinus with average heart rate 95 bpm. Few episodes of SVT longest lasting 3 minutes 44 seconds with short to mid RP tachycardia. There is also wide-complex tachycardic episode which likely is SVT with aberrancy Echo (August 2023): [facility] echo report showed Normal LVEF 55-60%. Normal right ventricular size and function. No significant valvular pathology is no pericardial effusions. Assessment/Plan #AVNRT s/p Slow Pathway Modification (Sep 2023) Since ablation pt has had rare episodes lasting a few minutes at a time. H/o Metoprolol use but wasmaking pt very tired. If episodes occur more frequently then can consider longer acting Diltiazem 120mg daily >> Toprol XL 25mg Daily Return to Clinic: Patient should return to the EP Clinic in 6 months Ramiro Hugo MD [facility] Cardiac Electrophysiology [email or web address] Disclaimer: This note was dictated by speech recognition, and every effort has been made to prevent any error in scaffold erector, however minor errors may be present documented in this encounterMercy Health St. [facility] Work Phone: 1(374) 742-164611-15-2024 NoteHNO ID: [id number] Author: RACHELL AMADOR APRN.SERVICE LEARNING COORDINATOR Service: ? Author Type: Nurse Practitioner Type: Progress Notes Filed: 12/26/2023 11:34 Note Text: [place] [address] Date of Evaluation: 12/26/2023 Patient Name: Keagan [...] HISTORY Procedure Laterality Date CHOLECYSTECTOMY HX 06/17/2023 [facility] IUD REMOVAL 09/15/2023 PT ED HEART AND [...] Pupils: Pupils are equa (more content not included)...[facility]11-15-[facility] History of Present illness Narrative* Rachell Amador APRN.SERVICE LEARNING COORDINATOR - 12/26/2023 10:16 AM EST Images from the [place] [address] Date of Evaluation: 12/26/2023 Patient Name: Keagan [...] dizziness and light-headedness. Negative for tremors, seizures, syncope,weakness and headaches. Hematological: Negative. Psychiatric/Behavioral: Negative. PAIN: [...] HISTORY Procedure Laterality Date CHOLECYSTECTOMY HX 06/17/2023 [facility] IUD REMOVAL 09/15/2023 PT ED HEART AND [...] the medication once a day but explained whyshe has to take it twice due to it being short acting formulation. - METOPROLOL TARTRATE 25 MG TABLET 3. Palpitations - ICD9: 785.1, ICD10: R00.2 - METOPROLOL TARTRATE 25 MG TABLET Discussed health maintenance, including regular aerobic exercise, low fat diet, and periodic exams. Return in about 1 year (around 12/25/2024) for well adult exam. Rachell Amador APRN.SERVICE LEARNING COORDINATOR documented in this encounterSelect Medical [facility] History of Present illness Narrative* Norbert Noriega MD - 12/10/2023 1:15 PM EDT Images from the original note [...] focal deficits Reviewed Study(s): Outside echocardiogram from [facility] 08/25/2023 CONCLUSIONS: - Exam indication: Palpitations - [...] with me as needed Norbert Fernandes MD [facility] Interventional Cardiology Endovascular Interventions [email or web address] Disclaimer: This note was dictated by speech recognition, and every effort has been made to prevent any error in scaffold erector, however minor errors may be present documented in this [facility] Work Phone: 1(426) 148-264410-14-2024 NoteO ID: [id number] Author: SANDRA COLE APRN.SERVICE LEARNING COORDINATOR Service: ? Author Type: Nurse Practitioner Type: Progress Notes Filed: 11/24/2023 13:09 Note Text: Patient declined lead recreation assistant. Keagan Alicia is a 23 year old [...] Births2 Comment: No DANDCs for missed abs Transportation Engineer History LMP: 09/15/2023 (Exact Date), Having periods Age at Menarche: Age at First : Age at Menopause: Transportation Engineer History Comments: Sexual Activity: Yes; Male Contraception: Pill PAST MEDICAL HISTORY Diagnosis Date Anemia Chronic tonsillitis Depression 10/08/2016 Gall stone 07/2022 cholecystectomy after delivery GERD (gastroesophageal reflux disease) Hemorrhoids History of back problems Kidney stones Paroxysmal SVT (supraventricular tachycardia) (HCC) Postoperative pulmonary embolism (HCC) 06/2023 Psychiatric disorder depression, anxiety and PTSD PAST SURGICAL HISTORY Procedure Laterality Date CHOLECYSTECTOMY HX 06/17/2023 [facility] IUD REMOVAL 09/15/2023 TONSILLECTOMY HX FAMILY HISTORY [...] discussed with the Patient or Patient's Authorized Head Of Marketing Analytics. As applicable, any other physician, advance practice provider, medical student, or other health professional student that will be observing or involved in the sensitive examination for educational or training purposes was discussed with the Patient or Authorized Head Of Marketing Analytics. The Patient or Authorized Head Of Marketing Analytics has agreed to proceed with the sensitive examination. (Sensitive examination includes inspection and/or palpation of the breasts, pelvis, prostate and anorectal regions). EXAM: LMP 09/15/2023 GENERAL: pleasant, female in no apparent distress HEENT: Normocephalic, atraumatic, mucus membranes moist, and no lesions CHEST: Normal inspiratory effort ABDOMEN: soft, non-tender, and no masses PELVIC: external genitalia normal, normal Bartholin's glands, urethra, Hereford's glands, no vulvar lesions, no cervical lesions, good vaginal support, physiologic discharge present, normal appearing perineal body and perianal region BIMANUAL: deferred NEURO: alert and oriented x3,exam grossly non-focal EXTREMITIES: normal ASSESSMENT/PLAN: 1. Vaginal discharge - ICD9: 623.5, ICD10: N89.8 Will notify patient of test results. - ALMITA/TRICHOMONAS NAAT - BACTERIAL VAGINOSIS NAAT - GONORRHEA/CHLAMYDIA NAAT If results are negative recommend vaginal pH polysomnography technician. Sandra Cole APRN.CNP Medical Decision Making: Problems: Moderate: New problem with uncertain prognosis Data: Unique test(s) ordered: 3+ Risk: Low: Low risk from testing/treatment Medical Decision Making Level: 4 - [facility]erateLouis [facility] History of Present illness Narrative* Sandra Cole APRN.CNP - 11/24/2023 12:41 PM EDT Patient declined lead recreation assistant. Keagan Alicia is a 23 year old female who presents for problem visit vaginal discharge, odor for2 month(s). HPI: pt states that she has had thicker white discharge w/ odor and some burning off/on over the past 2 months. She tried OTC yeast treatment with no resolve. OB History T1 L2 SAB3 IAB0 Ectopic0 Multiple0 Live Births2 Comment: No D&Cs for missed abs Transportation Engineer History LMP: 09/15/2023 (Exact Date), Having periods Age at Menarche: Age at First : Age at Menopause: Transportation Engineer History Comments: Sexual Activity: Yes; Male Contraception: Pill PAST MEDICAL HISTORY Diagnosis Date Anemia Chronic tonsillitis Depression 10/08/2016 Gall stone 07/2022 cholecystectomy after delivery GERD (gastroesophageal reflux disease) Hemorrhoids History of back problems Kidney stones Paroxysmal SVT (supraventricular tachycardia) (HCC) Postoperative pulmonary embolism (HCC) 06/2023 Psychiatric disorder depression, anxiety and PTSD PAST SURGICAL HISTORY Procedure Laterality Date CHOLECYSTECTOMY HX 06/17/2023 [facility] IUD REMOVAL 09/15/2023 TONSILLECTOMY HX FAMILY HISTORY [...] discussed with the Patient or Patient's Authorized Head Of Marketing Analytics. As applicable, any other physician, advance practice provider, medical student, or other health professional student that will be observing or involved in the sensitive examination for educational or training purposes was discussed with the Patient or Authorized Head Of Marketing Analytics. The Patient or Authorized Head Of Marketing Analytics has agreed to proceed with the sensitive examination. (Sensitive examination includes inspection and/or palpation of the breasts, pelvis, prostate and anorectal regions). EXAM: LMP 09/15/2023 GENERAL: pleasant, female in no apparent distress HEENT: Normocephalic, atraumatic, mucus membranes moist, and no lesions CHEST: Normal inspiratory effort ABDOMEN: soft, non-tender, and no masses PELVIC: external genitalia normal, normal Bartholin's glands, urethra, Hereford's glands, no vulvar lesions, no cervical lesions, good vaginal support, physiologic discharge present, normal appearing perineal body and perianal region BIMANUAL: deferred NEURO: alert and oriented x3,exam grossly non-focal EXTREMITIES: normal ASSESSMENT/PLAN: 1. Vaginal discharge - ICD9: 623.5, ICD10: N89.8 Will notify patient of test results. - ALMITA/TRICHOMONAS NAAT - BACTERIAL VAGINOSIS NAAT - GONORRHEA/CHLAMYDIA NAAT If results are negative recommend vaginal pH polysomnography technician. Sandra Cole APRN.CNP Medical Decision Making: Problems: Moderate: New problem with uncertain prognosis Data: Unique test(s) ordered: 3+ Risk: Low: Low risk from testing/treatment Medical Decision Making Level: 4 - Moderate documented [facility] Instructions* Patient Instructions* Faiza Mishra APRN.CNP - 10/16/2023 7:18 AM EDT Thank you for seeing me in clinic today. As we discussed, my recommendations are as follows: 1.colestipol 1 gram twice daily with meals If you have any questions about the above treatment plan, please do not hesitate to call the officeor send me a [employer] message. documented in this encounter[facility] History and physical note * Faiza Mishra APRN.CNP - 10/16/2023 7:00 AM EDT DISTANCE HEALTH VISIT This Team Access Model visit is a virtual encounter. It required patient- provider interaction for the medical decision making as [...] postoperative status. LABS BASIC METABOLIC PANEL Order: [id number] Component Ref Range & Units 2 wk [...] race variable for the IDMS-Traceable creatinine methods. https://jasn.asnjournals.org/content/early//ASN.5911616528 Calcium 8.6 - 10.3 mg/dL 9.2 ntains abnormal data COMPLETE BLOOD COUNT Order: [id number] Component Ref Range & Units 2 wk [...] Abs Lymph 1.00 - 4.00 k/uL 1.48 [place]% % 10.7 Abs [place] <0.87 k/uL 0.38 [place]% % 0.3 Abs [...] PAST SURGICAL HISTORY 06/17/2023: CHOLECYSTECTOMY HX Comment: [facility] 09/15/2023: IUD REMOVAL No date: TONSILLECTOMY HX [...] TABLET I spent more than 30 minutes [id number] with the patient and over half the time was devoted to counseling and/or coordination of care. This note was dictated using itsDapper speech recognition software and may contain some errors that were a result of the program not accurately transcribing what was dictated. I have communicated my name and active licensure. The patient's identity and physical location wereverified at the time of this visit. Either the patient or their legal billing representative has been informed of the risks and benefits of -- and alternatives to -- treatment through a remote evaluation andconsents to proceed with the evaluation remotely. Faiza Mishra APRN.CNP [facility] History and physical note* Faiza Mishra APRN.CNP - 10/16/2023 7:00 AM EDT DISTANCE HEALTH VISIT This Team Access Model visit is a virtual encounter. It required patient- provider interaction for the medical decision making as [...] postoperative status. LABS BASIC METABOLIC PANEL Order: [id number] Component Ref Range & Units 2 wk [...] race variable for the IDMS-Traceable creatinine methods. https://jasn.asnjournals.org/content//ASN.4828271816 Calcium 8.6 - 10.3 mg/dL 9.2 ntains abnormal data COMPLETE BLOOD COUNT Order: [id number] Component Ref Range & Units 2 wk [...] Abs Lymph 1.00 - 4.00 k/uL 1.48 [place]% % 10.7 Abs [place] <0.87 k/uL 0.38 [place]% % 0.3 Abs [...] date: Paroxysmal SVT (supraventricular tachycardia) ([facility]) 06/2023: Postoperative pulmonary embolism ([facility]) No date: Psychiatric disorder Comment: depression, anxiety and PTSD PAST SURGICAL HISTORY 06/17/2023: CHOLECYSTECTOMY HX Comment: [facility] 09/15/2023: IUD REMOVAL No date: TONSILLECTOMY HX [...] TABLET I spent more than 30 minutes [id number] with the patient and over half the time was devoted to counseling and/or coordination of care. This note was dictated using itsDapper speech recognition software and may contain some errors that were a result of the program not accurately transcribing what was dictated. I have communicated my name and active licensure. The patient's identity and physical location wereverified at the time of this visit. Either the patient or their legal billing representative has been informed of the risks and benefits of -- and alternatives to -- treatment through a remote evaluation andconsents to proceed with the evaluation remotely. Faiza Mishra APRN.CNP documented in this encounterSelect [facility] [place] Nurse Note* Princess Marc RN - 10/03/2023 4:10 PM EDT RN notified Dr. Hugo patient states pain has improved to 7/10, resting comfortably, vitals stable, groin site stable, thigh soft and nontender, per MD pt ok to go home. Discharge instructions reviewed again, peripheral IV removed, belongings returned, patient meets discharge criteria, pt discharge via wheelchair by flower shop laborer/designer RN [facility] Work Phone: 1([phone]) 512-410708-23-2024 Nurse Note* Princess Marc RN - 10/03/2023 4:10 PM EDT RN notified Dr. Hugo patient states pain has improved to 7/10, resting comfortably, vitals stable, groin site stable, thigh soft and nontender, per MD pt ok to go home. Discharge instructions reviewed again, peripheral IV removed, belongings returned, patient meets discharge criteria, pt discharge via wheelchair by flower shop laborer/designer RN * Princess Marc RN - 10/03/2023 3:37 PM EDT RN reviewing discharge instructions with patient when she stated she is having 10/10 right upper tomid thigh pain starting distal to incision site and spreading to mid thigh. Upon assessment right site stable, without noted hematoma or bruising, soft and pain did not increase on palpation. BL groin sites are equal and BL thigh size symmetrical and soft upon palpation. Movement and sensation WDL,distal pulses are palpable and coloring normal. Blood sugar 156, BP 110/61, HR 86. Assessment otherwise unremarkable. Tramadol administered per orders. RN called Dr. Hugo who stated continue to monitor patient at this time. * Princess Marc RN - 10/03/2023 3:00 PM EDT RN called Dr. Hugo to clarify eliquis orders for discharge. Per Dr. Hugo pt WILL NOT resume eliquisupon discharge, patient notified and verbalized understanding. * Princess Marc RN - 10/03/2023 7:19 AM EDT POCT test negative documented in this [facility] Work Phone: 1(421) 593-674208-23-2024 Nurse Note* Princess Marc RN - 10/03/2023 3:37 PM EDT RN reviewing discharge instructions with patient when she stated she is having 10/10 right upper tomid thigh pain starting distal to incision site and spreading to mid thigh. Upon assessment right site stable, without noted hematoma or bruising, soft and pain did not increase on palpation. BL groin sites are equal and BL thigh size symmetrical and soft upon palpation. Movement and sensation WDL,distal pulses are palpable and coloring normal. Blood sugar 156, BP 110/61, HR 86. Assessment otherwise unremarkable. Tramadol administered per orders. RN called Dr. Hugo who stated continue to monitor patient at this time. [facility] Work Phone: 1(406) 545-960408-23-2024 Nurse Note* Princess Marc RN - 10/03/2023 3:00 PM EDT RN called Dr. Hugo to clarify eliquis orders for discharge. Per Dr. Hugo pt WILL NOT resume eliquisupon discharge, patient notified and verbalized understanding. [facility] Work Phone: 1([phone]) 769-754708-23-2024 Hospital Discharge instructions* Discharge Instructions* Princess Marc RN - 10/03/2023 2:51 PM [...] to allow time for your groin to properlyheal. No vigorous or strenuous physical activity for 1 week. C. Keep stair climbing to a minimum the first day after your procedure. D. No sexual activities for 24 hours after your procedure. 3.) DIET -You may resume your normal diet. However, it is better to start with liquids and gradually work upto solid foods. 4.) GROIN CARE A. We [...] It is normal to experience tenderness and bruisingat the site. Also, a pea sized lump [...] SHOULD CALL 911 IMMEDIATELY.\ documented in this [facility] Work Phone: 1(993) 923-515208-23-2024 Miscellaneous Notes* Post-Procedure Note - Ramiro Hugo MD - 10/03/2023 7:50 AM EDT Physician Transition of Care Summary Cardiac Electrophysiology Lab/OR Procedure Date: 10/03/2023 Attending: Nisa Hugo - Primary Resident/Fellow/Other Alteration Manager: Surgeons and Role: * No surgeons found with a matching role * Indications: Pre-op Diagnosis * SVT (supraventricular tachycardia) ([facility]) [I47.10] Post-procedure diagnosis: Post-op Diagnosis * SVT (supraventricular tachycardia) (CMS-HCC) [I47.10] Procedure(s): Ablation SVT [phone] [id number] - MS COMPRE EP EVAL ABLTJ 3D MAPG TX SVT Summary: Comprehensive EP study was done and showed Dual AV ever Physiology, h/o SVT - Suggestive of AVNRT,no other SVT or VT inducible Acutely successful [...] symptoms, or recent severe chest pain) call [place]:[phone] For full procedure note/study review please go to Chart review --> Cardiology tab --> Electrophysiology procedure for 10/03/2023 Complications: None Stents/Implants: Implants No implant documentation for this case. Anticoagulation/Antiplatelet Plan: None Estimated Blood Loss: * No values recorded between 07/11/2023 2:17 PM and 07/11/2023 7:50 PM * Anesthesia: General Anesthesia Staff: Anesthesiologist: Bishnu Ross MD PARKING SUPERVISOR: Laura Diaz APRN-JOSE GUADALUPE Any Specimen(s) Removed: Order Name Source Comment Collection Info Order Time COAGULATION SCREEN Blood, Venous 10/03/2023 6:33 AM Release result to [facility] Immediate Disposition: Monitor for 2-3hrs post anesthesia and bed rest, and plan for Discharge home 10/03/23 Ramiro Hugo MD [facility] Cardiac Electrophysiology Disclaimer: This note was dictated by speech recognition, and every effort has been made to prevent any error in scaffold erector, however minor errors may be present documented in this [facility] Work Phone: 1(681) 675-503808-23-2024 Note* Post-Procedure Note - Ramiro Hugo MD - 10/03/2023 7:50 AM EDT Physician Transition of Care Summary Cardiac Electrophysiology Lab/OR Procedure Date: 10/03/2023 Attending: * Ramiro Hugo - Primary Resident/Fellow/Other Alteration Manager: Surgeons and Role: * No surgeons found with a matching role * Indications: Pre-op Diagnosis * SVT (supraventricular tachycardia) (CMS-HCC) [I47.10] Post-procedure diagnosis: Post-op Diagnosis * SVT (supraventricular tachycardia) (CMS-HCC) [I47.10] Procedure(s): Ablation SVT [id number] [id number] - MS COMPRE EP EVAL ABLTJ 3D MAPG TX SVT Summary: Comprehensive EP study was done and showed Dual AV ever Physiology, h/o SVT - Suggestive of AVNRT,no other SVT or VT inducible Acutely successful [...] symptoms, or recent severe chest pain) call [place]:[phone] For full procedure note/study review please go to Chart review --> Cardiology tab --> Electrophysiology procedure for 10/03/2023 Complications: None Stents/Implants: Implants No implant documentation for this case. Anticoagulation/Antiplatelet Plan: None Estimated Blood Loss: * No values recorded between 07/11/2023 2:17 PM and 07/11/2023 7:50 PM * Anesthesia: General Anesthesia Staff: Anesthesiologist: Bishnu Ross MD PARKING SUPERVISOR: Laura Diaz APRN-JOSE GUADALUPE Any Specimen(s) Removed: Order Name Source Comment Collection Info Order Time COAGULATION SCREEN Blood, Venous 10/03/2023 6:33 AM Release result to [facility] Immediate Disposition: Monitor for 2-3hrs post anesthesia and bed rest, and plan for Discharge home 10/03/23 Ramiro Hugo MD [facility] Cardiac Electrophysiology Disclaimer: This note was dictated by speech recognition, and every effort has been made to prevent any error in scaffold erector, however minor errors may be present [facility] Work Phone: 1([phone]) 266-159008-23-2024 History and physical note* Ramiro Hugo MD - 10/03/2023 7:48 AM EDT History Of Present Illness Keagan Alicia [...] Assessment/Plan Assessment & Plan SVT (supraventricular tachycardia) ([facility]) Plan for EP study and ablation I spent 20 minutes in the professional and overall care of this patient. Ramiro Hugo MD [facility] Work Phone: [phone]) 418-460908-23-2024 History and physical note* Ramiro Hugo MD - 10/03/2023 7:48 AM EDT History Of Present Illness Keagan lAicia is a 23 y.o. female presenting with [...] Assessment/Plan Assessment & Plan SVT (supraventricular tachycardia) ([facility]) Plan for EP study and ablation I spent 20 minutes in the professional and overall care of this patient. Ramiro Hugo MD documented in this [facility] Work Phone: [phone] Nurse Note* Princess Marc RN - 10/03/2023 7:19 AM EDT POCT test negative [facility] Work Phone: [phone]) 314-388508-19-2024 Nurse Note* Seema Bowman RN - 09/29/2023 4:24 PM EDT REVIEW OF SYSTEMS: General: The patient NOTES [...] difficulty swallowing, NOTES acid reflux, denies ulcers, NOTESvomiting, denies jaundice/hepatitis, NOTES gallbladder problems, denies black [...] bruising, NOTES bleeding, and NOTES anemia, NOTES bloodclots. Infections: The patient denies a history of measles and mumps, denies rheumatic fever, and denies sexually transmitted diseases. Musculoskeletal: The patient NOTES back pain/injury, NOTES back problems, denies sciatica, denies knee/foot trouble, denies arthritis, or denies gout. When was patient's last Mammogram screening? N/A Last Colonoscopy: None Seema Bowman RN [facility] Nurse Note* Seema Bowman RN - 09/29/2023 4:24 PM EDT REVIEW OF SYSTEMS: General: The patient NOTES [...] difficulty swallowing, NOTES acid reflux, denies ulcers, NOTESvomiting, denies jaundice/hepatitis, NOTES gallbladder problems, denies black [...] bruising, NOTES bleeding, and NOTES anemia, NOTES bloodclots. Infections: The patient denies a history of measles and mumps, denies rheumatic fever, and denies sexually transmitted diseases. Musculoskeletal: The patient NOTES back pain/injury, NOTES back problems, denies sciatica, denies knee/foot trouble, denies arthritis, or denies gout. When was patient's last Mammogram screening? N/A Last Colonoscopy: None Seema Bowman RN documented in this encounterSelect [facility]24 NoteHNO ID: [id number] Author: CONOR DUARTE MD Service: ? Author Type: Physician Type: Progress Notes Filed: 09/29/2023 14:54 Note Text: HISTORY AND PHYSICAL Keagan Alicia 2000 REFERRING [...] the surgeon. She was seen by her PROCESS CONTROL SUPERVISOR physician who got her into see me [...] PAST SURGICAL HISTORY 06/17/2023: CHOLECYSTECTOMY HX Comment: [facility] 09/15/2023: IUD REMOVAL No date: TONSILLECTOMY HX [...] will be forwarded to Dr. Rachell Amador, STEAM FINISHER.SERVICE LEARNING COORDINATOR. Return to Clinic: The patient is instructed to follow-up with me as needed. Conor Duarte III, [facility]08-19-2024 History of Present illness Narrative* Conor Duarte MD - 09/29/2023 2:36 PM EDT HISTORY AND PHYSICAL Keagan Alicia 2000 REFERRING [...] her pain medication she immediately had diarrhea. Sh e has between 3 or 4 bowel movements a day mushy in nature and then sometimes just brissa watery. Initially seen by her surgeon who said this was normal however she has not gone back to the surgeon. She was seen by her PROCESS CONTROL SUPERVISOR physician who got her into see me [...] PAST SURGICAL HISTORY 06/17/2023: CHOLECYSTECTOMY HX Comment: [facility] 09/15/2023: IUD REMOVAL No date: TONSILLECTOMY HX [...] nourished, well hydrated in no acute distress. Thepatient is oriented to time, place, and person. VITALS: Blood pressure 100/62, pulse 88, temperature 36.4 C (97.6 F), height 160 cm (5' 3), tpqdko03.9 kg (114 lb 6.4 oz), last menstrual period 09/15/2023, SpO2 100%, not currently . HEENT: Normal cephalic, ataumatic, pupils are equally round, sclera are anicteric, mucous membranesare moist, oropharynx is clear. Neck has no [...] will be forwarded to Dr. Rachell Amador, STEAM FINISHER.SERVICE LEARNING COORDINATOR. Return to Clinic: The patient is instructed to follow-up with me as needed. Conor Duarte III, MD documented in this encounterSelect [facility]24 NoteHNO ID: [id number] Author: MARY JO CHANCE MD Service: ? [...] some nausea - continue with zofran PRN Parker diet reviewed I have reviewed and updated past medical and surgical history, medications and allergies. Mary Jo Gee [facility]08-13-2024 History of Present illness Narrative* Mary Jo Chance MD - 09/23/2023 11:39 AM EDT SUBJECTIVE: 23 year old female presents for 1 week post-op exam. Has some nausea. OBJECTIVE: Incision: Dry and intact, without redness- Healing bruising around Umbilicus Abdomen: Soft, Non-tender, and No palpable masses PLAN: Follow with GI for Persistent Diarrhea s/p Removal of gallbladder Has some nausea - continue with zofran PRN Parker diet reviewed I have reviewed and updated past medical and surgical history, medications and allergies. Mary Jo Gee MD documented in this encounterSelect [facility] History of Present illness Narrative* Barbi Tian APRN.CNP - 09/18/2023 10:07 AM EDT Rock Climbing Instructor offered: Patient declines. Keagan Alicia is a 22 year old female who presents for problem visit: pain to incision sites andheavy menstrual bleeding. HPI: Keagan had a diagnostic laparoscopy removal of a perforated IUD on 09/15/[address] Barnett. Shehas pain to the incision sites since. She [...] Births2 Comment: No D&Cs for missed abs Transportation Engineer History LMP: 07/14/2023 (Approximate), IUD Age at Menarche: Age at First : Age at Menopause: Transportation Engineer History Comments: Sexual Activity: Yes; Male Contraception: No contraception data on record PAST MEDICAL HISTORY No date: Anemia No date: Chronic tonsillitis 10/08/2016: Depression 07/2022: Gall stone Comment: cholecystectomy after delivery No date: Paroxysmal SVT (supraventricular tachycardia) (HCC) 06/2023: Postoperative pulmonary embolism (HCC) No date: Psychiatric disorder Comment: depression, anxiety and PTSD PAST SURGICAL HISTORY 06/17/2023: CHOLECYSTECTOMY HX Comment: [facility] No date: TONSILLECTOMY HX FAMILY HISTORY Problem [...] Take 1-2 tablets by mouth every 4 hoursas needed for up to 3 days. norethindrone [...] and pain to incision sites Expanded ROS: PROCESS CONTROL SUPERVISOR: + heavy menstrual bleeding Allergies and current [...] external genitalia normal, normal Bartholin's glands, urethra, Hereford's glands, no vulvar lesions, no cervical lesions, [...] 2 weeks for post op. Barbi Tian APRN.SERVICE LEARNING COORDINATOR Medical Decision Making: Problems: Low: Acute, uncomplicated illness or injury Data: Unique test(s) ordered: 1 Risk: Minimal: Minimal risk from testing/treatment Moderate: Drug management Medical Decision Making Level: 3 - Low documented in this encounterSelect [facility] Telephone encounter Note * Telephone Encounter - Juliane Martin RN - 09/18/2023 8:29 AM EDT Pt spoke to [facility] this am and appt made for this morning with . Juliane Martin RN [facility]-08-2024 Miscellaneous Notes* Telephone Encounter - Juliane Martin RN - 09/18/2023 8:29 AM EDT Pt spoke to [facility] this am and appt made for this morning with . Juliane Martin RN documented in this encounterSelect [facility]24 Telephone encounter Note * Telephone Encounter - Juliane Martin RN - 09/17/2023 8:40 AM EDT Left message for patient to call office. Mychart message sent to patient. Juliane Martin RN [place] [address]78-07-2024 Miscellaneous Notes* Telephone Encounter - Juliane Martin RN - 09/17/2023 8:40 AM EDT Left message for patient to call office. [place] message sent to patient. Juliane Martin RN * Telephone Encounter - Mary Jo Chance MD - 09/16/2023 5:11 PM EDT Tylenol #3 ordered for her. * Telephone Encounter - Chantelle Marquis RN - 09/16/2023 2:06 PM EDT Patient has been taking Ibuprofen 800 MG every 6 hours and alternating with Tylenol 1,000 MG. Patient does not think that she has bruising. Patient states any other doctor would regarding giving stronger pain reliever. Please advise. Chantelle Marquis RN * Telephone Encounter - Juliane Martin RN - 09/16/2023 1:09 PM EDT Left message for patient to call office. Juliane Martin RN * Telephone Encounter - Mary Jo Chance MD - 09/16/2023 12:47 PM EDT How is she currently taking the medication? She needs to make sure she is taking the ibuprofen 600mg (3 otc tabs) every 6 hrs and tyelnol she can take 1000mg every 6 hrs and alternate them. Does she have any excessive bruising around incision sites? I do not typically given anything stronger then otc medications for this laparoscopy. * Telephone Encounter - Iveth Kohli RN - 09/16/2023 10:44 AM EDT Patient had diagnostic lap and IUD removal yesterday. Calling c/o incisional pain. Rating 10/10 on pain scale today. Stated she can barely get out of bed and walk this morning. Ibuprofen and tylenol have not helped at all. Asking if there's any other pain medication she could get. No other complaints or concerns. Please advise. vIeth Kohli RN documented in this encounterSelect [facility] Telephone encounter Note * Telephone Encounter - Mary Jo Chance MD - 09/16/2023 5:11 PM EDT Tylenol #3 ordered for her. [facility] Telephone encounter Note* Telephone Encounter - Chantelle Marquis RN - 09/16/2023 2:06 PM EDT Patient has been taking Ibuprofen 800 MG every 6 hours and alternating with Tylenol 1,000 MG. Patient does not think that she has bruising. Patient states any other doctor would regarding giving stronger pain reliever. Please advise. Chantelle Marquis RN [facility]-2024 Telephone encounter Note* Telephone Encounter - Juliane Martin RN - 09/16/2023 1:09 PM EDT Left message for patient to call office. Juliane Martin RN [facility]08-06-2024 Telephone encounter Note* Telephone Encounter - Mary Jo Chance MD - 09/16/2023 12:47 PM EDT How is she currently taking the medication? She needs to make sure she is taking the ibuprofen 600mg (3 otc tabs) every 6 hrs and tyelnol she can take 1000mg every 6 hrs and alternate them. Does she have any excessive bruising around incision sites? I do not typically given anything stronger then otc medications for this laparoscopy. [facility] Telephone encounter Note* Telephone Encounter - Iveth Kohli RN - 09/16/2023 10:44 AM EDT Patient had diagnostic lap and IUD removal yesterday. Calling c/o incisional pain. Rating 10/10 on pain scale today. Stated she can barely get out of bed and walk this morning. Ibuprofen and tylenol have not helped at all. Asking if there's any other pain medication she could get. No other complaints or concerns. Please advise. Iveth Kohli RN [facility]08-05-2024 NoteHNO ID: [id number] Author: YAA TREADWELL APRN.PARKING SUPERVISOR Service: Anesthesiology Author Type: Nurse [employer] [place] Type: Anesthesia Procedure Notes Filed: 09/15/2023 08:51 Note Text: ANESTHESIOLOGY PROCEDURE NOTE Airway General Information Procedure Start Time/Medication Administration: 09/15/2023 8:40 AM Procedure End Time: 09/15/2023 8:43 AM Patient location during procedure: OR Timeout Performed Pre-procedure: timeout performed Consent Obtained: Yes Patient identity confirmed: arm band Staffing PARKING SUPERVISOR: Yaa Treadwell APRN.PARKING SUPERVISOR Performed by: JOSE GUADALUPE Indications and Patient [...] no Airway not difficult SIGNATURE: Yaa Canas APRN.CRNA PATIENT NAME: Keagan Alicia DATE: September 15, 2023 TIME: 8:50 AM CSN: [id number] History and physical note * Mary Jo Chance MD - 09/12/2023 11:01 AM EDT Pre-Op History and Physical HPI: The patient [...] PAST SURGICAL HISTORY 06/17/2023: CHOLECYSTECTOMY HX Comment: [facility] No date: TONSILLECTOMY HX Current Outpatient Medications [...] Barnett MD [facility]08-02-2024 History and physical note* Mary Jo Chance MD - 09/12/2023 11:01 AM EDT Pre-Op History and Physical HPI: The patient [...] PAST SURGICAL HISTORY 06/17/2023: CHOLECYSTECTOMY HX Comment: [facility] No date: TONSILLECTOMY HX Current Outpatient Medications [...] Mary Jo Barnett MD documented in this encounterSelect [facility] Telephone encounter Note * Telephone Encounter - Juliane Martin RN - 09/10/2023 9:53 AM EDT Request for 90 day supply. Pt last seen in office 08/19. Upcoming annual 02/03/24. Requested Prescriptions Pending Prescriptions Disp Refills norethindrone (AYGESTIN) 5 mg tablet [Pharmacy Med Name: NORETHINDRONE 5 MG TABLET] 90 tablet 1 Sig: TAKE 1 TABLET BY MOUTH EVERY DAY Juliane Martin RN [facility]07-31-2024 Miscellaneous Notes* Telephone Encounter - Juliane Martin RN - 09/10/2023 9:53 AM EDT Request for 90 day supply. Pt last seen in office 08/19. Upcoming annual 02/03/24. Requested Prescriptions Pending Prescriptions Disp Refills norethindrone (AYGESTIN) 5 mg tablet [Pharmacy Med Name: NORETHINDRONE 5 MG TABLET] 90 tablet 1 Sig: TAKE 1 TABLET BY MOUTH EVERY DAY Juliane Martin, RN documented in this encounterSelect [facility] Telephone encounter Note * Telephone Encounter - Joyce Mishra PA-C - 09/08/2023 10:13 AM EDT Good morning, I re-reviewed patient's chart with staff anesthesiologist, Dr. Coker, in light of patient's recent appointment with her wet mix operator Dr. Fernando Noriega on 09/03/23 (A&P included [...] Continue follow-up with hematology -Echocardiogram done at [facility] showed normal LV and RV function with no valvular abnormalities -For her planned surgery if she stays as inpatient recommend for her to wear SCDs at all times and to use prophylactic subcutaneous heparin. Also discussed early mobilization to prevent VTE # SVT -Follow-up with electrophysiology for outpatient SVT ablation Norbert Fernandes MD [facility] Interventional Cardiology Endovascular Interventions [email or web address]07-29-2024 Miscellaneous Notes* Telephone Encounter - Joyce Mishra PA-C - 09/08/2023 10:13 AM EDT Good morning, I re-reviewed patient's chart with staff anesthesiologist, Dr. Coker, in light of patient's recent appointment with her wet mix operator Dr. Fernando Noriega on 09/03/23 (A&P included [...] Continue follow-up with hematology -Echocardiogram done at [facility] showed normal LV and RV function with no valvular abnormalities -For her planned surgery if she stays as inpatient recommend for her to wear SCDs at all times and to use prophylactic subcutaneous heparin. Also discussed early mobilization to prevent VTE # SVT -Follow-up with electrophysiology for outpatient SVT ablation Norbert Fernandes MD [facility] Interventional Cardiology Endovascular Interventions [email or web address] * Telephone Encounter - Chantelle Marquis RN - 09/05/2023 1:07 PM EDT Patient called the office back after viewing [place] message. States she never received any voicemail messages from our office. Confirmed that we had the correct phone number on file. Patient voiced her frustration. States her Jewel Corner Brushing Machine Operator never stated that she would need to post pone this surgery with DM. Advised that DM would return to the office next week to look at next available dates. Patient states she might look for another doctor to remove the IUD. Stated that we screwed it up once, what's keeping you guys from screwing it up again. Chantelle Marquis RN * Telephone Encounter - Chantelle Marquis RN - 09/03/2023 11:18 AM EDT 2nd message left for patient to call the office. Surgery sheet given back to medical surgery nurse to cancel. Chantelle Marquis RN * Telephone Encounter - Chantelle Marquis RN - 09/02/2023 2:04 PM EDT Left message for patient to call office. Chantelle Marquis RN * Telephone Encounter - Yamila Ballard MD - 09/02/2023 1:34 PM EDT Responding as Dr. Barnett is out this week. Please notify patient that non emergent surgery needs will need to wait until after her ablation for SVT scheduled in September due to concerns w/ this and recent PE. Dr. Barnett can look at surgery reschedule dates when she returns. Yamila Ballard MD * Telephone Encounter - Joyce Mishra PA-C - 09/02/2023 10:[address]T [address]. Louann Barnett, This is [...] of paroxymal SVT. She is following with electrophysiologyat , Dr. Hugo, and she is scheduled [...] Joyce Mishra PA-C PACC documented in this encounterSelect [facility] Telephone encounter Note * Telephone Encounter - Chantelle Marquis RN - 09/05/2023 1:07 PM EDT Patient called the office back after viewing Col[place]e message. States she never received any voicemail messages from our office. Confirmed that we had the correct phone number on file. Patient voiced her frustration. States her Jewel Corner Brushing Machine Operator never stated that she would need to post pone this surgery with DM. Advised that DM would return to the office next week to look at next available dates. Patient states she might look for another doctor to remove the IUD. Stated that we screwed it up once, what's keeping you guys from screwing it up again. Chantelle Marquis RN [facility]07-24-2024 Telephone encounter Note* Telephone Encounter - Chantelle Marquis RN - 09/03/2023 11:18 AM EDT 2nd message left for patient to call the office. Surgery sheet given back to medical surgery nurse to cancel. Chantelle Marquis RN [facility]07-23-2024 Telephone encounter Note* Telephone Encounter - Chantelle Marquis RN - 09/02/2023 2:04 PM EDT Left message for patient to call office. Chantelle Marquis RN [facility]07-23-2024 Telephone encounter Note* Telephone Encounter - Yamila Ballard MD - 09/02/2023 1:34 PM EDT Responding as Dr. Barnett is out this week. Please notify patient that non emergent surgery needs will need to wait until after her ablation for SVT scheduled in September due to concerns w/ this and recent PE. Dr. Barnett can look at surgery reschedule dates when she returns. Yamila Ballard MD [facility] Work Phone: 1(798) 279-924507-23-2024 Telephone encounter Note* Telephone Encounter - Joyce Mishra PA-C - 09/02/2023 10:[address] Louann Barnett, This is [...] of paroxymal SVT. She is following with electrophysiologyat , Dr. Hugo, and she is scheduled [...] PA-C PACC [facility]07-22-2024 Instructions* Patient Instructions* Joyce Mishra PA-C - 09/01/2023 9:25 AM EDT PATIENT PREOPERATIVE INSTRUCTIONS Froilan Chance* has scheduled you for your procedure at this surgery center: [facility]: [phone] -- [address] [address]. Please read below carefully for your personalized [...] Procedures: - YOU MUST HAVE A RESPONSIBLE PETAL SHAPER HAND TAKE YOU HOME. A BOOK SORTER OR SUPERVISOR MAJOR APPLIANCE ASSEMBLY CANNOT BE MADE A RESPONSIBLE PETAL SHAPER HAND. - We recommend that a responsible person stays with you overnight to take care of you. - You cannot stay in a hotel alone after outpatient surgery. You will not be permitted to have yoursurgery, if you do not have someone to take care of you. Please be aware that emergency situations arise, which may delay or change your surgical time. If this happens, we will notify you as soon as possible and regret any inconvenience. If you already have an Advance Directive, please fax a copy to [phone] or email to for it to be added to your chart. If you do not have an Advance Directive, you can find the appropriate form and more information at [email or web address]. We recommend that youcomplete the Advance Directive form found on the website and bring it with you the day of your surgery. It can be witnessed and scanned into your chart that day. documented in this encounterSelect [facility] History and physical note * Joyce Mishra PA-C - 09/01/2023 9:20 AM EDT Images from the original note were not included. [facility] HISTORY AND PHYSICAL EXAMINATION SERVICE DATE: 09/01/2023 SERVICE TIME: 9:18 AM PRIMARY CARE PHYSICIAN: Rachell Amador APRN.SERVICE LEARNING COORDINATOR Assessment Patient has the following medical conditions [...] scheduled for ablation 10/03/23. RRR on examtoday. Reardon Activity Status Index: METS: Do moderate [...] large neck Non-male patient STOP-Bang Score: 1 [id number] Score: Age: <65 Sex: female CHF history: No Hypertension history: No Stroke/TIA/thromboembolism history: Yes Vascular disease history: No Diabetes history: No [id number] Score: 3 ANESTHESIA FINDINGS: Intubation History: No [...] Thick neck: no Lip Bite Test: II Microretrognathia/Micronagthia/Recessed Chin: Yes DENTAL Dental findings: teeth intact. Additional comments: Braces - upper and lower. II - ANESTHESIA PLAN Anesthetic Plan: other Anesthetic plan additional comments: *PACC/TCI - anesthesia choice. Beta Yanira Monitoring Plan Post Procedure Analgesic Plan Prepared for Surgery: optimally prepared for surgery, pending [see comment]. PATIENT TO DISCUSS PRE-OP ELIQUIS INSTRUCTIONS WITH RELEASE SPECIALIST 09/03/23. CONSULTS: The following consults have been initiated at this time: cardiology (Pt has appt with outside wet mix operator 09/02, pt told me Dr. Fernando Noriega [...] manage symptoms. Procedure scheduled on 09/15/2023 at [facility]. REVIEW OF SYSTEMS: General: No weight loss, malaise or fevers. Neurological: No history of TIA's, stroke, PNEUMATIC TUBE REPAIRER tumor, impaired sensorium, hemiplegia, paraplegia orquadraplegia. No neurological symptoms or problems. Respiratory: +Vapes [...] Eliquis x 3 months then monitor and hypercoagtesting) Negative for: AICD/PPM, atrial fibrillation, CHF, hyperlipidemia, [...] > 1 time per night or hematuria. PROCESS CONTROL SUPERVISOR: See HPI. Endocrine: No history of diabetes. Has not taken steroids within the past 30 days. No history of endocrinological symptoms or problems. Hematology: Positive for: chronic anti-coagulation/platelet meds. Patient is on anti- coagulation/platelet medication(s): DOAC. Negative for: anemia, hemophilia and [...] HISTORY Procedure Laterality Date CHOLECYSTECTOMY HX 06/17/2023 [facility] TONSILLECTOMY HX FAMILY HISTORY Problem Relation Age [...] Prior to Admission medications as of 09/01/23 0939 Medication Sig Last Dose Taking apixaban (ELIQUIS) [...] Holter 07/2023 Recent Results (from the past 13194 hour(s)) ECHO Collection Time: 08/25/23 10:59 AM [...] PAGER/CONTACT #: [facility]07-22-2024 History and physical note* Joyce Mishra PA-C - 09/01/2023 9:20 AM EDT Images from the original note were not included. [facility] HISTORY AND PHYSICAL EXAMINATION SERVICE DATE: 09/01/2023 SERVICE TIME: 9:18 AM PRIMARY CARE PHYSICIAN: Rachell Amador APRN.SERVICE LEARNING COORDINATOR Assessment Patient has the following medical conditions [...] scheduled for ablation 10/03/23. RRR on examtoday. Reardon Activity Status Index: METS: Do moderate [...] large neck Non-male patient STOP-Bang Score: 1 [id number] Score: Age: <65 Sex: female CHF history: No Hypertension history: No Stroke/TIA/thromboembolism history: Yes Vascular disease history: No Diabetes history: No [id number] Score: 3 ANESTHESIA FINDINGS: Intubation History: No [...] Thick neck: no Lip Bite Test: II Microretrognathia/Micronagthia/Recessed Chin: Yes DENTAL Dental findings: teeth intact. Additional comments: Braces - upper and lower. II - ANESTHESIA PLAN Anesthetic Plan: other Anesthetic plan additional comments: *PACC/TCI - anesthesia choice. Beta Yanira Monitoring Plan Post Procedure Analgesic Plan Prepared for Surgery: optimally prepared for surgery, pending [see comment]. PATIENT TO DISCUSS PRE-OP ELIQUIS INSTRUCTIONS WITH RELEASE SPECIALIST 09/03/23. CONSULTS: The following consults have been initiated at this time: cardiology (Pt has appt with outside wet mix operator 09/02, pt told me Dr. Fernando Noriega [...] manage symptoms. Procedure scheduled on 09/15/2023 at [facility]. REVIEW OF SYSTEMS: General: No weight loss, malaise or fevers. Neurological: No history of TIA's, stroke, PNEUMATIC TUBE REPAIRER tumor, impaired sensorium, hemiplegia, paraplegia orquadraplegia. No neurological symptoms or problems. Respiratory: +Vapes [...] Eliquis x 3 months then monitor and hypercoagtesting) Negative for: AICD/PPM, atrial fibrillation, CHF, hyperlipidemia, [...] > 1 time per night or hematuria. PROCESS CONTROL SUPERVISOR: See HPI. Endocrine: No history of diabetes. Has not taken steroids within the past 30 days. No history of endocrinological symptoms or problems. Hematology: Positive for: chronic anti-coagulation/platelet meds. Patient is on anti- coagulation/platelet medication(s): DOAC. Negative for: anemia, hemophilia and [...] HISTORY Procedure Laterality Date CHOLECYSTECTOMY HX 06/17/2023 [facility] TONSILLECTOMY HX FAMILY HISTORY Problem Relation Age [...] smoking Prior to Admission medications as of 09/01/2336 Medication Sig Last Dose Taking apixaban (ELIQUIS) [...] Holter 07/2023 Recent Results (from the past 71750 hour(s)) ECHO Collection Time: 08/25/23 10:59 AM [...] 9:18 AM PAGER/CONTACT #: documented in this encounterSelect [facility] Telephone encounter Note * Telephone Encounter - Mary Jo Chance MD - 08/29/2023 9:18 AM EDT Surgical request ordered [facility] Work Phone: [phone]) 424-789407-19-2024 Miscellaneous Notes* Telephone Encounter - Mary Jo Chance MD - 08/29/2023 9:18 AM EDT Surgical request ordered * Telephone Encounter - Chantelle Marquis RN - 08/27/2023 12:45 PM EDT Patient notified. She would like surgery @ [facility] on 09/15/23 Pre Op scheduled for 09/12/23 with DM. Yoana- do you already have a surgery sheet for her? Chantelle Marquis, RN * Telephone Encounter - Tamie Steward LPN - 08/26/2023 2:36 PM EDT Left message to call office. Next available date for surgery is 09/14 at [facility] or 09/18 at [facility]. Patient will need a pre-op appointment with Dr. Barnett. * Telephone Encounter - Tamie Steward LPN - 08/26/2023 2:35 PM EDT ----- Message from Mary Jo Barnett MD [...] her pre op visit. documented in this encounterSelect Medical [facility]ty [facility]07-17-2024 Telephone encounter Note * Telephone Encounter - Chantelle Marquis RN - 08/27/2023 12:45 PM EDT Patient notified. She would like surgery @ [facility] on 09/15/23 Pre Op scheduled for 09/12/23 with DM. Yoana- do you already have a surgery sheet for her? Chantelle Marquis, RN [facility]07-16-2024 Telephone encounter Note* Telephone Encounter - Tamie Steward LPN - 08/26/2023 2:36 PM EDT Left message to call office. Next available date for surgery is 09/14 at [facility] or 09/18 at [facility]. Patient will need a pre-op appointment with Dr. Barnett. [facility]07-16-2024 Telephone encounter Note* Telephone Encounter - Tamie Steward LPN - 08/26/2023 2:35 PM EDT ----- Message from Mary Jo Barnett MD [...] op visit. [facility]07-16-2024 Telephone encounter Note* Telephone Encounter - Brina Geller MA - 08/26/2023 9:09 AM EDT Patient is informed Brina Geller MA [facility]07-16-2024 Telephone encounter Note* Telephone Encounter - Brina Geller MA - 08/26/2023 9:09 AM EDT ----- Message from Rachell Amador APRN.SERVICE LEARNING COORDINATOR sent at 08/26/2023 9:08 AM EDT ----- Echo was normal. [facility]07-16-2024 Miscellaneous Notes* Telephone Encounter - Brina Geller MA - 08/26/2023 9:09 AM EDT Patient is informed Brina Geller MA * Telephone Encounter - Brina Geller MA - 08/26/2023 9:09 AM EDT ----- Message from Rachell Amador APRN.SERVICE LEARNING COORDINATOR sent at 08/26/2023 9:08 AM EDT ----- Echo was normal. documented in this encounterSelect Medical Specialty [facility]07-11-2024 History of Present illness Narrative* Ramiro Hugo MD - 08/21/2023 11:15 AM EDT Images from the original note [...] Smokes marijuana every other day FamHx: pGF CT in 30 Objective Current Outpatient Medications Medication [...] normal. My Interpretation of Reviewed Study(s): 14-day medical attendant (July 2023): Predominant rhythm sinus with average [...] including weight restrictions and she has an 4-ppwoq-ijwh-old. Patient did state that she was able to get family members to help with childcare while she is recovering postprocedurally. Metoprolol 25mg PRN - will change it BID if increasing frequency Plan for SVT ablation # Pre-procedure Planning Procedure Type: SVT RFA - EnSite Planned Date: 10/03/23 - [facility] Anesthesia Needed: MAC Anticoagulation: Apixaban 5mg BID, [...] in 5-6 weeks post-procedure Ramiro Hugo MD [facility] Cardiac Electrophysiology [email or web address] Disclaimer: This note was dictated by speech recognition, and every effort has been made to prevent any error in scaffold erector, however minor errors may be present documented in this [facility] Work Phone: 1(717) 935-803107-10-2024 History of Present illness Narrative* Lisette Marquez RT(R) - 08/20/2023 9:50 AM EDT Radiology Service Progress Note PATIENT NAME: Keagan Alicia DATE OF SERVICE: August 20, 2023 TIME: 12:53 PM PATIENT IDENTITY VERIFICATION COMPLETED USING TWO (2) IDENTIFIERS: Name and Date of confirmedby patient verbally. FALL SCREENING: Has the patient had 2 falls in the last year or 1 fall with injury or currently using an Ambulatory Assistive Device (Walker, Cane, Wheelchair, Crutches, etc.)? No PATIENT GENDER DATA: Female. status: : No status: NO. PATIENT RELEVANT IMPLANT DATA REVIEWED: Not Applicable PATIENT PRESENTS WITH AN IMPLANTABLE OR ATTACHED TAILOR GARMENT FITTER: No RADIOLOGY DEPARTMENT: General X-ray: Exam(s) Completed: Pelvis X-Ray: Pelvis General AP and Pelvis inlet/outlet PERIPHERAL IV DATA: Not applicable SIGNED BY: RT Eric(R) August 20, 2023 12:53 PM documented in this encounterSelect Medical [facility]ty [facility]24 History of Present illness Narrative* Mary Jo Chance MD - 08/20/2023 9:15 AM EDT Keagan Alicia is a 22 year [...] Births2 Comment: No D&Cs for missed abs Transportation Engineer History LMP: 07/14/2023 (Approximate), IUD Age at Menarche: Age at First : Age at Menopause: Transportation Engineer History Comments: Sexual Activity: Yes; Male Contraception: No contraception data on record PAST MEDICAL HISTORY Diagnosis Date Anemia Chronic tonsillitis Depression 10/08/2016 Gall stone 07/2022 cholecystectomy after delivery Postoperative pulmonary embolism (HCC) 06/2023 Psychiatric disorder depression, anxiety and PTSD PAST SURGICAL HISTORY Procedure Laterality Date CHOLECYSTECTOMY HX 06/17/2023 [facility] TONSILLECTOMY HX FAMILY HISTORY Problem Relation Age [...] external genitalia normal, normal Bartholin's glands, urethra, Hereford's glands, no vulvar lesions, no cervical lesions, [...] will call with results. Reviewed pelvic us imagesand discussed results with patient. I spent a total of 20 minutes on the date of the service which included preparing to see the patient, ibra-nb-abxv patient care, completing clinical documentation, obtaining and/or reviewing separately obtained history, performing a medically appropriate examination, counseling and educating the pat ient/family/caregiver, and ordering medications, tests, or procedures. Mary Jo Gee MD documented in this encounterSelect Medical [facility]ty [facility]-2024 History of Present illness Narrative* Herve Rea MD - 08/19/2023 4:28 PM EDT Pelvic ultrasound was performed on Keagan. Please [...] OBGYN Call Schedule: QGenda documented in this encounterSelect Medical Specialty [facility]07-[facility]-2024 History of Present illness Narrative* Sandra Cole APRN.ULISSES - 08/19/2023 3:37 PM EDT Keagan presents for removal of IUD due [...] plans: Aygestin 5 mg daily Sandra Cole APRN.ULISSES documented in this encounterSelect Medical Specialty [facility]-2024 Telephone encounter Note * Telephone Encounter - Ana Laura Guillen MA - 08/19/2023 8:27 AM EDT pharmacy electronically requesting refills as follows: Last seen 07/31/23 . Last refill 07/31/23 . Requested Prescriptions Pending Prescriptions Disp Refills metoprolol tartrate, short acting, (LOPRESSOR) 25 mg tablet [Pharmacy Med Name: METOPROLOL [id number] MG TAB] 60 tablet 0 Sig: take 1 tablet by mouth twice a day as needed Please review and advise. Ana Laura Guillen MA [facility]07-09-2024 Miscellaneous Notes* Telephone Encounter - Ana Laura Guillen MA - 08/19/2023 8:27 AM EDT pharmacy electronically requesting refills as follows: Last seen 07/31/23 . Last refill 07/31/23 . Requested Prescriptions Pending Prescriptions Disp Refills metoprolol tartrate, short acting, (LOPRESSOR) 25 mg tablet [Pharmacy Med Name: METOPROLOL [id number] MG TAB] 60 tablet 0 Sig: take 1 tablet by mouth twice a day as needed Please review and advise. Ana Laura Guillen MA documented in this encounterSelect Medical [facility]-2024 Telephone encounter Note * Telephone Encounter - Sandra Cole APRN.CNP - 08/19/2023 6:59 AM EDT +yeast, Diflucan sent. Sandra Cole APRN.CNP [facility]07-09-2024 Miscellaneous Notes* Telephone Encounter - Sandra Cole APRN.CNP - 08/19/2023 6:59 AM EDT +yeast, Diflucan sent. Sandra Cole APRN.CNP documented in this encounterSelect Medical Specialty [facility]-2024 History of Present illness Narrative* Sandra Cole APRN.CNP - 08/18/2023 8:19 AM EDT Rock Climbing Instructor offered: Patient declines. Keagan Alicia is a [...] Births2 Comment: No D&Cs for missed abs Transportation Engineer History LMP: 07/14/2023 (Approximate), IUD Age at Menarche: Age at First : Age at Menopause: Transportation Engineer History Comments: Sexual Activity: Yes; Male Contraception: No contraception data on record PAST MEDICAL HISTORY Diagnosis Date Anemia Chronic tonsillitis Depression 10/08/2016 Gall stone 07/2022 cholecystectomy after delivery Postoperative pulmonary embolism (HCC) 06/2023 Psychiatric disorder depression, anxiety and PTSD PAST SURGICAL HISTORY Procedure Laterality Date CHOLECYSTECTOMY HX 06/17/2023 [facility] TONSILLECTOMY HX FAMILY HISTORY Problem Relation Age [...] external genitalia normal, normal Bartholin's glands, urethra, Hereford's glands, no vulvar lesions, no cervical lesions, [...] Level: 4 - Moderate documented in this encounterSelect [facility] Telephone encounter Note * Telephone Encounter - Corinne Caicedo - 08/07/2023 12:23 PM EDT The following medication(s) is being requested: LAST APPT - 07/14/23 NEXT APPT - N/A Requested Prescriptions Pending Prescriptions Disp Refills mirtazapine (REMERON) 15 mg tablet [Pharmacy Med Name: MIRTAZAPINE 15 MG TABLET] 90 tablet 1 Sig: TAKE 1 TABLET BY MOUTH EVERYDAY AT BEDTIME Please process accordingly Corinne Caicedo [facility]06-27-[facility] Miscellaneous Notes* Telephone Encounter - Corinne Caicedo - 08/07/2023 12:23 PM EDT The following medication(s) is being requested: LAST APPT - 07/14/23 NEXT APPT - N/A Requested Prescriptions Pending Prescriptions Disp Refills mirtazapine (REMERON) 15 mg tablet [Pharmacy Med Name: MIRTAZAPINE 15 MG TABLET] 90 tablet 1 Sig: TAKE 1 TABLET BY MOUTH EVERYDAY AT BEDTIME Please process accordingly Corinne Caicedo documented in this encounterSelect Medical [facility]06-20-2024 Instructions* Patient Instructions* Rachell Amador APRN.CNP - 07/31/2023 3:35 PM EDT Cardiology [phone] Dr. Jonathan Dutta Cardiovascular Medicine [facility] [address] [place] [address] Appointment: [phone] Desk: [phone] Cardiology: Dr. Carl Peña MD [address] [place] [id number] Cardiology: Dr. Malia Good, DO Burns documented in this encounterSelect [facility]06-20-[facility]24 History of Present illness Narrative* Rachell Amador APRN.CNP - 07/31/2023 3:06 PM EDT CHIEF COMPLAINT: Keagan Alicia is a 22 [...] three days later. She did see a wet mix operator with in [place] and the Eliquis will be continued for a total of 3 months. A 14 day Holter monitor was also ordered and she completed this on 07/23/23 but hasn't heard anything about the results yet although she can see them on [facility]. She is here to discuss the [...] sudden cardiac but notes a history of CT in a fewof her family members. She will be following with hematology after she completes the 3 month courseof Eliquis to further genetic testing. Holter report [...] incidental finding of small right subsegmental pulmonary embolism.Patient has been asymptomatic from a respiratory and [...] Pertinent negatives include no abdominal pain, no cough,no diaphoresis, no exertional chest pressure, no fever, [...] HISTORY Procedure Laterality Date CHOLECYSTECTOMY HX 06/17/2023 [facility] TONSILLECTOMY HX Social History Tobacco Use Smoking [...] IUD 1 Each by INTRAUTERINE route as directed.1 Each 0 No current facility-administered medications for [...] (1.60m) Wt 117 lb (53.1kg) SpO2 98% LMP06/22/2023 BMI 20.73 kg/(m^2). Physical Exam Vitals and [...] needed when symptomatic. She needs to get inwith EP. Will get an echo in the meantime. She does not want to return to the wet mix operator that shesaw previously. She was advised to sustain from [...] patient. Rachell Amador APRN.CNP documented in this encounterSelect [facility]06-13-[facility]24 History of Present illness Narrative* Gino Valero APRN.CNM - 07/24/2023 10:45 AM EDT Keagan Alicia presents today for IUD check. [...] intercourse Gino Valero APRN.CNM documented in this encounterSelect Medical [facility]06-04-2024 History of Present illness Narrative* Chantelle Low PA-C - 07/15/2023 9:38 AM EDT Images from the original note were not included. [facility] SMOKING CESSATION PROGRAM CONSULT NOTE I will communicate the consult note back to the requesting health care provider by way of the shared medical record for internal providers or letter via the [employer] for external providers. July 15, 2023 CONSULTING PHYSICIAN/REFERRAL: Mitra Reed [address] [place] [id number] REASON FOR CONSULT/REFERRAL: Tobacco Cessation Treatment HPI: Keagan Alicia is a 22 year old female who is a current smoker who presents to the office today for a smoking cessation consult. PMH significant for anxiety/depression, pulmonary embolism followingcholecystectomy 06/17/2023 on Eliquis. Patient is currently vaping. She recently switched to a nicotine free vape. PCP prescribed nicotinelozenges and patient states they are not helpful. She states it is the habit of having something inher hand and placing it to her mouth [...] HISTORY Procedure Laterality Date CHOLECYSTECTOMY HX 06/17/2023 [facility] TONSILLECTOMY HX MEDICATIONS: lamoTRIgine (LAMICTAL) 25 mg [...] PA-C Pulmonary & Critical Care Medicine Respiratory Gamaliel July 15, 2023 9:38 AM CC Mitra Reed [address] [place] [id number] and Rachell Amador, STEAM FINISHER.SERVICE LEARNING COORDINATOR via [employer] documented in this encounterSelect Medical [facility]06-03-2024 Note* Addendum Note - Dipti Freed DO - 07/14/2023 3:30 PM EDTAddended by: DIPTI FREED on: 07/14/2023 03:30 PM Modules accepted: Orders [facility] Miscellaneous Notes* Addendum Note - Dipti Freed DO - 07/14/2023 3:30 PM EDTAddended by: DIPTI FREED on: 07/14/2023 03:30 PM Modules accepted: Orders documented in this encounterSelect Medical Specialty [facility]06-03-2024 NoteHNO ID: [id number] Author: DIPTI FREED DO Service: ? Author [...] visit. Either the patient or their legal billing representative has been informed of the risks [...] it for total of 14 days for wet mix operator. She has to see a pediatric dermatologist as she developed a PE. She stopped [...] HISTORY Procedure Laterality Date CHOLECYSTECTOMY HX 06/17/2023 [facility] TONSILLECTOMY HX Current Outpatient Medications Medication Sig [...] depression TREATMENT PLAN: 1. D/c'd maría elena D/gayla (more content not included)...[facility] 07-14-2023 History of Present illness Narrative* Dipti Freed, DO - 07/14/2023 2:19 PM EDT FOLLOW UP - PSYCHIATRIC PROGRESS NOTE [...] visit. Either the patient or their legal billing representative has been informed of the risks [...] it for total of 14 days for wet mix operator. She has to see a pediatric dermatologist as she developed a PE. She stopped [...] HISTORY Procedure Laterality Date CHOLECYSTECTOMY HX 06/17/2023 [facility] TONSILLECTOMY HX Current Outpatient Medications Medication Sig [...] IUD 1 Each by INTRAUTERINE route as directed.1 Each 0 gabapentin (NEURONTIN) 300 mg capsule [...] depression TREATMENT PLAN: 1. D/c'd maría elena , D/c lexapro 2. EMDR and therapy referral [...] increase to 100 mg po daily , SJS . I spent a total of 60 minutes on the date of the service which included [id number]-[id number] patient care, completing clinical documentation, obtaining and/or reviewing separately obtained history, and performing a medically appropriate examination. ADD ON PSYCHOTHERAPY CODE : No SIGNATURE: Dipti Freed DO PATIENT NAME: Keagan Alicia DATE: July 14, 2023 TIME: 2:19 PM documented in this encounterSelect Medical [facility]05-28-2024 History of Present illness Narrative* Alla Llanes MD - 07/08/2023 11:00 AM EDT General Surgery Post-Operative Visit Patient: Keagan Alicia [...] dedicated CT scan of the chest which antonio wed no additional larger emboli. She was started on anticoagulation and referred to hematology. Sheis scheduled to have a Holter monitor as [...] correlate with eating, movement, or bowel movements. Shedenies any pain on the right side. She denies any fever, but jaundice, scleral icterus, or dark-colored urine. She is interested in returning to work. 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 Home Medications: Prior to Admission medications Medication Sig Start Date End Date Taking? Authorizing Provider apixaban (Eliquis) 5 mg tablet Take 1 tablet (5 mg) by mouth 2 times a day. 06/25/23 08/24/23 Elvira Noriega MD escitalopram (Lexapro) 5 mg tablet Take 1 tablet (5 mg) by mouth once daily. Historical Provider, gabapentin (Neurontin) 300 mg capsule Take 1 capsule (300 mg) by mouth once daily at bedtime. Historical Provider, levonorgestrel (Mirena) 21 mcg/24 hr (8 yrs) 52 mg IUD 52 mg by intrauterine route. 06/26/23 06/24/28Historical Provider, venlafaxine XR (Effexor-XR) 150 mg 24 [...] Alla Llanes MD 07/08/2023 [facility] Work Phone: [phone]) 306-349805-24-2024 Telephone encounter Note* Telephone Encounter - Corinne Caicedo - 07/04/2023 10:37 AM EDT The following medication(s) is being requested: LAST [...] Corinne Caicedo [facility] Miscellaneous Notes* Telephone Encounter - Corinne Caicedo - 07/04/2023 10:37 AM EDT The following medication(s) is being requested: LAST [...] in this encounterSelect Medical [facility]05-22-2024 Instructions* Patient Instructions* Mitra Reed APRN.SERVICE LEARNING COORDINATOR - 07/02/2023 2:07 PM EDT SMOKING CESSATION [...] the benefits to be gained, and compare themto the reasons why you should continue to [...] desirable brand of cigarettes. ___ Discard your development expert. Use matches. Carry your cigarettes in a [...] the back, you have just made progress inbreaking the habit forever. ___ Save the money [...] cigarettes, do not conclude that all is lost.Return to complete abstinence immediately and learn from your experience. ___ If you have gained significant weight since quitting, now is the time to do something about it. ___ Each time you see a cigarettes advertisement, remind yourself of why you quit. Also remember that a [employer] spends billions of dollars each year trying to get people like yourself re-hooked. The patient's goal is to quit by (insert month/year) Nicotine Lozenge What is this medicine? NICOTINE helps people stop smoking. This medicine replaces the nicotine found in cigarettes and helps to decrease withdrawal effects. It is most effective when used in combination with a stop-smokingprogram. Some common brand names for nicotine lozenge [...] lozenge in the mouth. Suck on the lozengeand occasionally move lozenge from one side of [...] a list of all the medicines, herbs, non- prescription drugs, or dietary supplements you use. Also [...] to smoke gets less, gradually reduce the numberof lozenges each day over a period of 2 to 3 months. You should begin using the nicotine lozenge the day you stop smoking. It is okay if you do not succeed with the attempt to quit and have a cigarette. You can still continue your quit attempt and keepusing the product as directed. Just throw away [...] of all your medications. documented in this encounterSelect [facility]-22-2024 History of Present illness Narrative* Mitra Reed APRN.CNP - 07/02/2023 1:44 PM EDT Subjective Keagan Alicia is a 22 year old female here today for ER follow-up. I reviewed past medical, surgical, social, and family histories today and updated chart. Allergies, chronic medications, and supplements were also reviewed. HPI Gallbladder removed on 06/17/[address] Llanes @ [place] [facility] Went home same day Went to [place] [facility] on 06/18/23 because of vomiting, could not hold down any fluids Returned to [facility] on 06/19/23 d/t intractable vomiting. She [...] in her lung. She went back to [place] [facility] on 06/21/23 to get confirmation lung scan. She was started on Eliquis. She went to [facility] on 06/22/23 for ongoing pain, nausea, vomiting, chills, shakiness. Labs completed showing mildly low potassium and glucose. UA negative for infection. CT A/P performed - normal. She was treated with IV fluids and zofran. Discharged home. Went to [place] [facility] on 06/24/23 for numbness in her feet, heavy vaginal bleeding. Labs and CT A/P performed - normal Patient saw her PROCESS CONTROL SUPERVISOR Dr Ortez on 06/26/23 - negative GC, trichomonas. Mirena IUD was placed. Patient saw patcher [facility] earlier today. She is scheduled for US BLE and heart monitor. Planned to complete Eliquis x 3 months, then will have clotting labs completed. 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 - Dr Fernando Noriega She does have [...] HISTORY Procedure Laterality Date CHOLECYSTECTOMY HX 06/17/2023 [facility] TONSILLECTOMY HX ALLERGIES [employer]x MEDICATIONS apixaban (ELIQUIS) 5 mg tab(s)^Take 5 mg by mouth.^Disp: ^Rfl: levonorgestrel (MIRENA) 21 mcg/24 hours (8 yrs) 52 mg IUD^1 Each by INTRAUTERINE route as directed.^Disp: 1 Each^Rfl: 0 escitalopram oxalate (LEXAPRO) 10 mg tablet^Take 1 tablet by mouth once daily.^Disp: 30 tablet^Rfl:0 gabapentin (NEURONTIN) 300 mg capsule^take one po [...] am for a week then take one tabletdaily in am^Disp: 30 tablet^Rfl: 0 (Patient not [...] She is not toxic-appearing. HENT: Mouth/Throat: Lips: [place]. Mouth: Mucous membranes are moist. Pharynx: Oropharynx [...] copied and pasted from Records found in [facility]: HEPATOBILIARY SCAN (HIDA) The patient received [...] pelvis from 06/19/2023 COMPARISON: None.. ACCESSION NUMBER(S): [id number] ORDERING CLINICIAN: SATURNINO VELÁZQUEZ TECHNIQUE: CT angiography [...] Rosa Chavarria 06/21/2023 9:34 AM Dictation workstation: [id number] Latest Ref Rng 06/22/2023 WBC 3.70 - [...] Abs Lymph 1.00 - 4.00 k/uL 2.05 [place]% % 5.8 Abs [place] <0.87 k/uL 0.31 [place]% % 3.8 Abs [...] LOZENGE Mitra Reed APRN.CNP documented in this encounterSelect Medical [facility]-2024 History of Present illness Narrative* Miki Jaramillo MD - 07/02/2023 8:00 AM EDT Patient ID:Keagan Alicia is a 22 y.o. year old female patient with a history of pulmonary embolus Referring Physician: Saturnino Velázquez [address] Department [place] [address] Primary Care Provider: Rachell Amador APRN-ULISSES Chief [...] ketones in her urine and the urine colorwas hazy yellow. 06/18 through 06/20/2023. She returned to the emergency room with persistent nausea vomiting abdominalpain and diarrhea. She said that every time she took anything by mouth she vomited. She said that her symptoms were worse. Her abdomen looked as if she was healing well. Repeat laboratory data showedwhite count 5000. Potassium is now normal. Bicarbonate [...] positive she would refer her for ERCP withstent placement. She was n.p.o. overnight with ice chips. When this test was negative she ordered aclear liquid diet. She was discharged home on [...] follow-up. 06/24/2023. Seen by Megan Berg physician product safety technical assistant and emergency medicine. She presented with [...] is encouraged to see primary care and DRAINAGE INSPECTOR. 06/25/2023. Seen by Dr. Fernando Noriega because [...] her bleeding. Patient also complained of palpitations yasmin Holter monitor was ordered. Interval Note 07/02/2023. She is here with her mother Leeann in follow-up. She has had no previous bleeding or clotting problems. There is no family history of blood clotting problems. The patient says that she started having shakiness and dizziness with shortness of breath when she exerts herself such as going upand down stairs. She thinks that the shakiness [...] self-injury, sleep disturbance and suicidal ideas. The patientis not nervous/anxious. Past Medical History Past Medical [...] personally reviewed the OARRS report for Keagan Wolfmadelinejuventino. I have considered the risks of abuse, [...] nursing note reviewed. Exam conducted with a lead recreation assistant present. Constitutional: General: She is not in [...] pm INDICATION: Signs/Symptoms:pain. COMPARISON: 06/19/2023 ACCESSION NUMBER(S): [id number] ORDERING CLINICIAN:MEGAN BERG TECHNIQUE: Axial CT images of the abdomen and pelvis with coronal and sagittal reconstructed images obtained after intravenous administration of contrast FINDINGS: LOWER CHEST: There is a persistent nonocclusive filling defect in a subsegmental branch of the right lower lobe, consistent with the known acute pulmonary embolism. BONES: No acute osseous abnormality. ABDOMINAL WALL: Withinnormal limits. ABDOMEN: LIVER: Hypodensity adjacent to the [...] Acute subsegmental pulmonary embolism in the right lowerlobe, described on PE CT dated 06/21/2023. MACRO: None Signed by: Christa Gagnon 06/24/2023 9:10 PM Dictation workstation: [id number] ECG 12 lead Result Date: 06/23/2023 Normal sinus rhythm Rightward axis Borderline ECG When compared with ECG of 21-JUN-2023 07:53, (unconfirmed) Vent. rate has decreased BY 38 BPM QRS voltage has increased Nonspecific T wave abnormality now evident in Inferior leads CT abdomen pelvis w IV contrast Result Date: 06/22/2023 * * *Final Report* * * DATE OF EXAM: Jun 22 2023 2:12PM [facility] [place] ABD/PEL W IVCON / [...] recon COMPARISON: None. RESULT: Liver: No mass. Bili kenneth: No bile duct dilation. Gallbladder is absent. [...] Patent. - Hepatic veins: Patent. Pelvis: No mass,ascites or fluid collection. A retroverted uterus is present. Bones/Soft Tissues: No significant finding. Lower thorax: Unremarkable. Localizer images: Unremarkable. IMPRESSION: No evidence of an acute intra-abdominal or pelvic process Blue Line Operator: MARIETTA Transcribe Date/Time: Jun 22 2023 2:23P Dictated [...] pelvis from 06/19/2023 COMPARISON: None.. ACCESSION NUMBER(S): [id number] ORDERING CLINICIAN: SATURNINO VELÁZQUEZ TECHNIQUE: CT angiography (non-coronary) of the chest was performed with Intravenous contrast material along with 3D (maximum intensity projection - MIP) image post processing and coronal reformatted images. 72 ml Omnipaque 350 was injected intravenously. FINDINGS: The bolus is of adequate quality for diagnosis of pulmonary embolism. Pulmonary arteries: Confirmed is the presence of a non occludingembolus within a subsegmental branch supplying the posterior basal segment of right lower lobe. No additional pulmonary emboli are seen. No central pulmonary emboli are present. There is no large embolic burden identified. Aorta: No sign of aortic aneurysm or aortic dissection. Heart: Unremarkable.No pericardial effusion. No right heart strain is observed. Lymph nodes: No pathologically enlargedlymph nodes are noted. Lungs: There are no [...] Free intraperitoneal air secondary to recent laparoscopic ch olecystectomy. Results were communicated via secure chat to Dr. Velázquez at 9:33 a.m. on 06/21/2023. The secure chat was acknowledged by Dr. Velázquez at 9:34 a.m.. Signed by: Rosa Chavarria 06/21/2023 9:34 AM Dictation workstation: [id number] CT abdomen pelvis w IV contrast Addendum Date: 06/21/2023 Interpreted By: Young Foss, ADDENDUM: Young Foss discussed the significance and urgency of this critical finding by telephone with Dr. Llanes on 06/21/2023 at 7:23 am. (-F-) Findings: At 7:12 a.m., 06/11/2023, I was [...] imaging of the chest with CT pulmonary embo lism protocol to evaluate for any additional pulmonary emboli and to consider obtaining duplex ultrasounds of the lower extremities to evaluate for underlying DVT. Signed by: Young Foss 06/21/2023 7:33 AM -------- ORIGINAL REPORT -------- Dictation workstation: [id number] Result Date: 06/21/2023 Interpreted By: Young Foss, STUDY: CT ABDOMEN PELVIS W IV CONTRAST; 06/19/2023 7:55 pm INDICATION: Signs/Symptoms:recent cholecystectomy, nausea, vomiting, increased pain. Postoperative day to COMPARISON: None. ACCESSION NUMBER(S): [id number] ORDERING CLINICIAN: EUGENE CARCAMO TECHNIQUE: Contiguous axial [...] thin peritoneal enhancement in the region of [id number]. MUSCULOSKELETAL: No acute osseous abnormality. No suspicious [...] Young Foss 06/19/2023 8:23 PM Dictation workstation: [id number] PR hepatobiliary Result Date: 06/20/2023 Interpreted By: Jonathan Shannon and Bartolomei Aguilar Christopher STUDY: PR HEPATOBILIARY; 06/20/2023 7:34 am INDICATION: Signs/Symptoms:rule out biliary leak. COMPARISON: None. ACCESSION NUMBER(S): [id number] ORDERING CLINICIAN: ALLA LLANES TECHNIQUE: DIVISION OF [...] as stated. This study was interpreted at [place], [place]. MACRO: None Signed by: Jonathan Shannon 06/20/2023 10:09 AM Dictation workstation: [id number] Pathology Recent subsegmental pulmonary embolus after cholecystectomy Performance Status: Symptomatic; fully ambulatory Assessment/Plan 1. Recent subsegmental pulmonary embolus after cholecystectomy. This was an incidental finding. We do not know how long it has been there. She is now on anticoagulation. She seems to be tolerating this dose of Eliquis better than the loading dose and has had much less vaginal bleeding. I think thatthis was a precipitated event either from her cholecystectomy or from her recent . I agreewith Dr. Fernando Noriega that she should be [...] change in her status, questions or concerns. Mkii Jaramillo MD * Chantelle Ames RN - 07/02/2023 8:00 AM EDT PT INSTRUCTED TO GET LABS 1 WEEK PRIOR TO APPT RTC 11/04 1100 FOR MD VISIT Reviewed AVS with patient- patient verbalizes understanding documented [facility] Work Phone: 1(642) 847-999905-22-2024 Instructions* Patient Instructions* Miki Jaramillo MD - 07/02/2023 8:00 AM EDT Reviewed labs and recent medical history. Discussed her recent pulmonary embolism and possible causes. Reviewed the need for genetic mutationtesting to look for underlying abnormalities. Discussed getting [...] the end of October. documented in this [facility] Work Phone: 1(288) 756-262305-16-2024 Instructions* Patient Instructions* Tamie Steward LPN - 06/26/2023 1:46 PM [...] please contact the office. documented in this encounterSelect [facility] History of Present illness Narrative* Tamie Steward LPN - 06/26/2023 1:17 PM EDT Keagan Alicia is a 22 [...] Births2 Comment: No D&Cs for missed abs Transportation Engineer History LMP: 06/22/2023, Having periods Age at Menarche: Age at First : Age at Menopause: Transportation Engineer History Comments: Sexual Activity: Yes; Male Contraception: No contraception data on record PAST MEDICAL HISTORY Diagnosis Date Anemia Chronic tonsillitis Depression 10/08/2016 Gall stone 07/2022 cholecystectomy after delivery Postoperative pulmonary embolism (HCC) 06/2023 Psychiatric disorder depression, anxiety and PTSD PAST SURGICAL HISTORY Procedure Laterality Date CHOLECYSTECTOMY HX 06/17/2023 [facility] TONSILLECTOMY HX FAMILY HISTORY Problem Relation Age [...] am for a week then take one tabletdaily in am (Patient not taking: Reported on [...] external genitalia normal, normal Bartholin's glands, urethra, Hereford's glands, no vulvar lesions, no cervical lesions, good vaginal support, scant blood present, normal appearing perineal body and perianal region BIMANUAL: uterus normal size, shape and consistency, no adnexal masses, and non-tender ASSESSMENT AND PLAN: Discussed R/B/A of treatment options for AUB on [facility]. Patient wishes to proceed with Mirena IUD [...] IUD source: office provided IUD lot #: [id number] Exp date: 08/09/2025 UNIVERSAL PROTOCOL / SAFETY [...] the cervix was dilated and the string wascut to 4cm from the external os of the cervix. Patient tolerated procedure well. PLAN: Patient was advised to observe for signs and symptoms of infection including but not limited to fever, malodorous vaginal discharge and/or pain. The patient was told to check the string monthlyfor accurate placement. Bleeding expectations were reviewed. Follow up in one month. Prabhu Ortez MD documented in this encounterSelect [facility] History of Present illness Narrative* Norbert Noriega MD - 06/25/2023 1:45 PM EDT Images from the original note were not included. Referred by Saturnino Lawrence D, DO Chief complaint: Chief Complaint Patient presents with [...] incidental finding of small right subsegmental pulmonary embolism.Patient has been asymptomatic from a respiratory and [...] loading dose of Eliquis. Instructed to reduce tothe maintenance dose of Eliquis to 5 mg twice daily and to continue to monitor -She is also scheduled to follow-up with her PROCESS CONTROL SUPERVISOR for further recommendations symptoms of menstrual bleeding # Palpitations -Will obtain Holter monitor for 14 days for further evaluation Norbert Fernandes MD [facility] Interventional Cardiology Endovascular Interventions [email or web address] Disclaimer: This note was dictated by speech recognition, and every effort has been made to prevent any error in scaffold erector, however minor errors may be present documented in this [facility] Work Phone: 1(215) 633-473305-14-2024 Emergency department Note* Megan Berg PA-C - 06/24/2023 6:36 PM EDT HPI Chief Complaint Patient presents with Numbness [...] something was wrong. History provided by: Patient Zoran Coma Scale Score: 15 Patient History Past [...] ear normal. Nose: Nose normal. Mouth/Throat: Lips: [place]. No lesions. Mouth: Mucous membranes are moist. [...] appear well-healing without any erythema or ecchymosis. Nofoul odor or discharge Neurological: General: No focal [...] She is also encouraged to follow-up with DRAINAGE INSPECTOR to discuss this as well. Patient discharged [...] Megan Berg PA-C 06/24/232120 documented in this [facility] Work Phone: 1(824) 233-924005-14-2024 Physician Emergency department Note* Megan Berg PA-C - 06/24/2023 6:36 PM EDT HPI Chief Complaint Patient presents with Numbness [...] something was wrong. History provided by: Patient Zoran Coma Scale Score: 15 Patient History Past [...] ear normal. Nose: Nose normal. Mouth/Throat: Lips: [place]. No lesions. Mouth: Mucous membranes are moist. [...] appear well-healing without any erythema or ecchymosis. Nofoul odor or discharge Neurological: General: No focal [...] She is also encouraged to follow-up with DRAINAGE INSPECTOR to discuss this as well. Patient discharged home in improved and stable condition Amount and/or Complexity of Data Reviewed Labs: ordered. Decision-making details documented in ED Course. Radiology: ordered and independent interpretation performed. Decision-making details documented in ED Course. Risk OTC drugs. Prescription drug management. Diagnosis or treatment significantly limited by social determinants of health. Procedure Procedures Megan Berg PA-C 06/24/232120 [facility] Work Phone: [phone]) 337-471205-14-2024 Telephone encounter Note* Telephone Encounter - Nate Velasquez RN - 06/24/2023 5:58 PM EDT Reason for call: Patient calling regarding ongoing vaginal bleeding and shaking. Patient reports that she spoke to OB provider 20 minutes prior to call, and that she was recommended to be seen in theED. Outcome: Upheld recommendation of specialty provider. Patient verbalizes understanding. GO TO THE EMERGENCY ROOM OR CALL 911 IF: * You develop any new symptoms * Your condition worsens * You are concerned or anxious about your condition for any other reason. [facility]05-14-2024 Miscellaneous Notes* Telephone Encounter - Nate Velasquez RN - 06/24/2023 5:58 PM EDT Reason for call: Patient calling regarding ongoing vaginal bleeding and shaking. Patient reports that she spoke to OB provider 20 minutes prior to call, and that she was recommended to be seen in theED. Outcome: Upheld recommendation of specialty provider. Patient verbalizes understanding. GO TO THE EMERGENCY ROOM OR CALL 911 IF: * You develop any new symptoms * Your condition worsens * You are concerned or anxious about your condition for any other reason. documented in this [facility] Telephone encounter Note * Telephone Encounter - Eugene Louie RN - 06/24/2023 5:20 PM EDT Patient calling regarding vaginal bleeding. Conferenced to [employer] [phone]] to speak with provider vp construction for Dr. Toni Ortez.. Pt was just discharged from [facility] ED. Advised pt while waiting to talk with vp construction provider if any new symptoms develop or symptoms worsen go to ED or call 911. [facility]05-14-2024 Miscellaneous Notes* Telephone Encounter - Eugene Louie RN - 06/24/2023 5:20 PM EDT Patient calling regarding vaginal bleeding. Conferenced to [employer] [phone] to speak with provider vp construction for Dr. Toni Ortez.. Pt was just discharged from [facility] ED. Advised pt while waiting to talk with vp construction provider if any new symptoms develop or symptoms worsen go to ED or call 911. documented in this [facility] History of Present illness Narrative* Lillian Rocha LPN - 06/24/2023 11:55 AM EDT ED Follow Up: Patient discharged from [facility] ED on 06/22/2023. 1. How are you feeling since your ED visit? Pt states that she is not doing better. Pt is currentlyat [facility] for shaking and heavy menstrual bleeding. [...] you able to contact the office or vp construction provider prior to your ED visit? No 5. Is there anything else I can do for you today? No documented in this encounterSelect [facility] Telephone encounter Note * Telephone Encounter - Prabhu Ortez MD - 06/24/2023 9:44 AM EDT Agree with ED evaluation. Prabhu Ortez MD [facility]05-14-2024 Miscellaneous Notes* Telephone Encounter - Prabhu Ortez MD - 06/24/2023 9:44 AM EDT Agree with ED evaluation. Prabhu Ortez MD * Telephone Encounter - Iveth Kohli RN - 06/24/2023 9:40 AM EDT Patient calling c/o heavy bleeding. Started on [...] FYI. Iveth Kohli RN documented in this [facility] Telephone encounter Note * Telephone Encounter - Iveth Kohli RN - 06/24/2023 9:40 AM EDT Patient calling c/o heavy bleeding. Started on [...] Kohli RN [facility]05-12-2024 NoteHNO ID: [id number] Author: JACOB ANGLIN RT(R) Service: Radiology Author [...] PATIENT PRESENTS WITH AN IMPLANTABLE OR ATTACHED TAILOR GARMENT FITTER: No ALLERGIES: Reviewed and unchanged CONTRAST ALLERGY: [...] Alicia DATE: June 22, 2023 TIME: 2:09 PMKettering Health [id number] Reason for referral (narrative)* Consultation (Routine) - Authorized Specialty Diagnoses / Procedures Referred By Tone t Referred To Contact Cardiology Saturnino [place]áz[place] [address] [place] [address] Department [place] [address] Norbert Herndon MD [address] [place] [address], [facility] 2 [place] [address] Referral ID Status Reason Start Date Expiration Date Visits Requested Visits Authorized [id number] Authorized Specialty Services Required 06/21/2023 06/20/2024 1 1 * [facility] Consult (Routine) - Authorized Specialty Diagnoses / Procedures Referred By Contac t Referred To Contact Hematology and Oncology Saturnino Velázquez DO [address] [place] [address] Department [place] [address] Miki Jaramillo MD [address] [place] [address] [address]ty [address] [place] [address] Referral ID Status Reason Start Date Expiration Date Visits Requested Visits Authorized [id number] Authorized Specialty Services Required 06/21/2023 06/20/2024 1 1 * Consultation (Routine) - Authorized Specialty Diagnoses / Procedures Referred By Contac t Referred To Contact Family Medicine / Primary Care Saturnino Velázquez DO [address] [place] [address] Department [place] [address] Referral ID Status Reason Start Date Expiration Date Visits Requested Visits Authorized [id number] Authorized Specialty Services Required 06/21/2023 06/20/[address] [facility] Work Phone: 1(817) 581-921005-10-2024 Hospital course Narrative* Christa Langley, STEAM FINISHER-SERVICE LEARNING COORDINATOR - 06/20/2023 12:49 PM EDT Discharge Diagnosis [...] Center 07/10/2023 11:15 AM Alla Llanes MD [id number] [facility] JONAH Delacruz documented in this [facility] Work Phone: 1(254) 602-881005-10-2024 History of Present illness Narrative* JONAH Delacruz - 06/20/2023 12:05 PM EDT Keagan Alicia [...] kg (126 lb 5.2 oz) Image Results PR hepatobiliary Narrative: Interpreted By: Jonathan Shannon, and Noemy Melara STUDY: PR HEPATOBILIARY; 06/20/2023 7:34 am INDICATION: Signs/Symptoms:rule out biliary leak. COMPARISON: None. ACCESSION NUMBER(S): [id number] ORDERING CLINICIAN: ALLA LLANES TECHNIQUE: DIVISION OF [...] as stated. This study was interpreted at [facility], [place], [place]. MACRO: None Signed by: Jonathan Shannon 06/20/2023 10:09 AM Dictation workstation: [id number] Physical Exam Constitutional: Appearance: Normal appearance. Comments: [...] Straw, Yellow Appearance, Urine Clear Clear Specific [place], Urine 1.017 1.005 - 1.035 pH, Urine [...] as tolerated -possible discharge home tomorrow Christa Langley, NOA-SERVICE LEARNING COORDINATOR * Lisette Carson RN - 06/20/2023 10:22 [...] Dr. Amador. Her pharmacy of choice is [facility] in [place]. She is independent at home with ADL's, [...] MD 06/19/23 9:36 PM documented in this [facility] Work Phone: 1(970) 578-571605-10-2024 Consult note* Yoshi Hernandez RDN, LD - [...] 0.17)* * Growth percentiles are based on [facility] (Girls, 2-20 Years) data. Weight Change %: [...] Method for Estimating Needs: 25-30 kcal/kg = 9298-0171 kcal Total Protein Estimated Needs (g): 68 [...] Comment: diet advancement Yoshi Hernandez RDN, LD [facility] Work Phone: 1(567) 550-496305-10-2024 Consult note* Yoshi Hernandez RDN, LD - [...] 0.17)* * Growth percentiles are based on [facility] (Girls, 2-20 Years) data. Weight Change %: [...] Method for Estimating Needs: 25-30 kcal/kg = 1931-7479 kcal Total Protein Estimated Needs (g): 68 [...] Yoshi Hernandez RDN, LD documented in this [facility] Work Phone: 1(700) 456-515605-09-2024 History and physical note* Bora Benites MD [...] Straw, Yellow Appearance, Urine Clear Clear Specific [place], Urine 1.017 1.005 - 1.035 pH, Urine [...] Postoperative day to COMPARISON: None. ACCESSION NUMBER(S): [id number] ORDERING CLINICIAN: EUGENE CARCAMO TECHNIQUE: Contiguous axial [...] thin peritoneal enhancement in the region of cunswb-ic-yxb. MUSCULOSKELETAL: No acute osseous abnormality. No suspicious [...] [place] 06/19/2023 8:23 PM Dictation workstation: [id number] Assessment/Plan 22-year-old female with a past medical [...] are not fully corrected) Bora Benites MD [facility] Work Phone: [phone]) 404-921405-09-2024 History and physical note* Bora Benites MD [...] Straw, Yellow Appearance, Urine Clear Clear Specific [place], Urine 1.017 1.005 - 1.035 pH, Urine [...] Postoperative day to COMPARISON: None. ACCESSION NUMBER(S): [id number] ORDERING CLINICIAN: EUGENE CARCAMO TECHNIQUE: Contiguous axial [...] thin peritoneal enhancement in the region of dzxpjw-xg-two. MUSCULOSKELETAL: No acute osseous abnormality. No suspicious [...] [place] 06/19/2023 8:23 PM Dictation workstation: [id number] Assessment/Plan 22-year-old female with a past medical [...] corrected) Bora Benites MD documented in this [facility] Work Phone: [phone]) 590-289905-09-2024 Emergency department Note* Eugene Carcamo PA-C - [...] Color, Urine Straw Appearance, Urine Clear Specific [place], Urine 1.017 pH, Urine 5.0 Protein, Urine [...] Abnormality Status --------- ------ Urinalysis with Reflex C...[[id number]] Abnormal Final result Extra Urine Emerson Tube[[id number]] In process Please view results for these [...] [place] 06/19/2023 8:23 PM Dictation workstation: [id number] Procedures Medical Decision Making Patient is 2 [...] Consult with Dr. Llanes Diagnoses as of 06/19/23 1673 Acute post-operative pain Status post cholecystectomy Vomiting and diarrhea Eugene Carcamo PA-C 06/19/23 2158 documented in this [facility] Work Phone: [phone]) 554-174905-09-2024 Physician Emergency department Note* Eugene KEITH Carcamo - 06/19/2023 4:28 PM EDT Patient gloria [...] Color, Urine Straw Appearance, Urine Clear Specific [place], Urine 1.017 pH, Urine 5.0 Protein, Urine [...] Abnormality Status --------- ------ Urinalysis with Reflex C...[[id number]] Abnormal Final result Extra Urine Emerson Tube[[id number]] In process Please view results for these [...] [place] 06/19/2023 8:23 PM Dictation workstation: [id number] Procedures Medical Decision Making Patient is 2 [...] Consult with Dr. Llanes Diagnoses as of 06/19/23 7807 Acute post-operative pain Status post cholecystectomy Vomiting and diarrhea Eugene Carcamo PA-C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 stress disorder) Posttraumatic stress disorder Post depression Mental disorders of mother, documented in this encounter [facility]* Diagnosis Symptomatic cholelithiasis- Primary Symptomatic cholelithiasis- Primary documented in this encounter [facility] Work Phone: Evaluation note* Diagnosis Pain in the coccyx- Primary Other disorder of coccyx Tailbone injury, initial encounter Depression, unspecified depression type Generalized anxiety disorder [facility]* Diagnosis Post depression- Primary Mental disorders of mother, Panic disorder without agoraphobia PTSD (post-traumatic stress disorder) Posttraumatic stress disorder [facility]* Diagnosis Symptomatic cholelithiasis- Primary Post-operative pain Other acute postoperative pain Post-operative pain Other acute postoperative pain Anxiety Anxiety state, unspecified PTSD (post-traumatic stress disorder) Posttraumatic stress disorder Depression Depressive disorder, not elsewhere classified documented in this encounter [facility] Work Phone: Evaluation note* Diagnosis Postoperative pain- Primary Other acute postoperative pain documented in this encounter [facility] Work Phone: Evaluation note* Diagnosis Acute post-operative pain- Primary Acute post-operative pain Status post cholecystectomy Other acquired absence of organ Vomiting and diarrhea documented in this encounter [facility] Work Phone: Evaluation note* Diagnosis Single subsegmental pulmonary embolism without acute cor pulmonale (Multi)- Primary documented in this encounter [facility] Work Phone: Evaluation note* Diagnosis Dysfunctional uterine bleeding- Primary Other disorder of menstruation and other abnormal bleeding from female genital tract Post-op pain Other acute postoperative pain documented in this encounter [facility] Work Phone: [phone] note* Diagnosis Palpitations- Primary Single subsegmental pulmonary embolism without acute cor pulmonale (Multi) Smoking addiction documented in this encounter [facility] Work Phone: Evaluation note* Diagnosis Abnormal uterine bleeding (AUB)- Primary Encounter for IUD insertion Encounter for insertion of intrauterine contraceptive device documented in this encounter [facility]* Diagnosis Nausea and vomiting, unspecified vomiting type- Primary S/P cholecystectomy Other acquired absence of organ Single subsegmental pulmonary embolism without acute cor pulmonale (HCC) Vapes nicotine containing substance documented in this encounter [facility]* Diagnosis Single subsegmental pulmonary embolism without acute cor pulmonale (Multi) documented in this encounter [facility] Work Phone: [phone] note* Diagnosis Postoperative visit- Primary documented in this encounter [facility] Work Phone: Evaluation note* Diagnosis Single subsegmental pulmonary embolism without acute cor pulmonale (Multi) Other pulmonary embolism without acute cor pulmonale (Multi) documented in this encounter [facility] Work Phone: [phone] note* Diagnosis Palpitations documented in this encounter [facility] Work Phone: [phone] note* Diagnosis Panic disorder without agoraphobia- Primary anxiety Mental disorders of mother, documented in this encounter [facility]* Diagnosis Vaping nicotine dependence, non-tobacco product- Primary documented in this encounter [facility]* Diagnosis Surveillance of previously prescribed intrauterine contraceptive device- Primary documented in this encounter [facility]* Diagnosis Paroxysmal SVT (supraventricular tachycardia) (HCC)- Primary Paroxysmal supraventricular tachycardia Palpitations Single subsegmental pulmonary embolism without acute cor pulmonale (HCC) On continuous oral anticoagulation Long-term (current) use of anticoagulants Engages in vaping documented in this encounter [facility]* Diagnosis Panic disorder without agoraphobia documented in this encounter [facility] note* Diagnosis Pelvic pain in female- Primary Unspecified symptom associated with female genital organs Intrauterine contraceptive device threads lost, initial encounter Irregular bleeding Irregular menstrual cycle [facility]* Diagnosis Paroxysmal SVT (supraventricular tachycardia) (HCC) Paroxysmal supraventricular tachycardia Palpitations documented in this encounter [facility] note* Diagnosis Encounter for IUD removal- Primary Encounter for removal of intrauterine contraceptive device Malpositioned intrauterine device (IUD), initial encounter documented in this encounter [facility]* Diagnosis Pelvic pain in female Unspecified symptom associated with female genital organs Intrauterine contraceptive device threads lost, initial encounter Irregular bleeding Irregular menstrual cycle documented in this encounter [facility]* Diagnosis Pelvic pain in female- Primary Unspecified symptom associated with female genital organs Malpositioned IUD, sequela documented in this encounter [facility]* Diagnosis Malpositioned IUD, sequela Pelvic pain in female Unspecified symptom associated with female genital organs documented in this encounter [facility]* Diagnosis Paroxysmal SVT (supraventricular tachycardia) (HCC) Paroxysmal supraventricular tachycardia Palpitations documented [facility]* Diagnosis Malpositioned intrauterine device (IUD), sequela- Primary Malpositioned intrauterine device (IUD), sequela documented [facility] this encounter [facility]* Diagnosis Preoperative examination- Primary Preoperative examination, [...] Pt verbalized understanding. documented in this encounter [facility]* Diagnosis Malpositioned intrauterine device (IUD), sequela- Primary Pre-op exam Preoperative examination, unspecified Malpositioned intrauterine device (IUD), sequela documented in this encounter [facility]* Diagnosis Post-op pain- Primary Other acute postoperative pain documented in this encounter [facility]* Diagnosis Post-op pain- Primary Other acute postoperative pain Constipation, unspecified constipation type Excessive bleeding in premenopausal period Premenopausal menorrhagia documented in this encounter [facility]* Diagnosis Post-operative state- Primary Other postprocedural status Functional diarrhea documented in this encounter [facility]* Diagnosis Preoperative examination- Primary Preoperative examination, unspecified Single subsegmental pulmonary embolism without acute cor pulmonale (HCC) Vapes nicotine containing substance Marijuana use Cannabis abuse, unspecified Generalized anxiety disorder Depression, unspecified depression type Paroxysmal SVT (supraventricular tachycardia) (HCC) Paroxysmal supraventricular tachycardia Status post laparoscopic cholecystectomy- Primary Other postprocedural status Functional diarrhea [facility] Diagnosis Preoperative examination- Primary Preoperative examination, [...] [facility] Diagnosis Preoperative examination- Primary Preoperative examination, unspecified Single subsegmental pulmonary embolism without acute cor pulmonale (HCC) Vapes nicotine containing substance Marijuana use Cannabis abuse, unspecified Generalized anxiety disorder Depression, unspecified depression type Paroxysmal SVT (supraventricular tachycardia) (HCC) Paroxysmal supraventricular tachycardia Vaginal discharge- Primary Leukorrhea, not specified as infective [facility] Diagnosis Single subsegmental pulmonary embolism without acute cor pulmonale- Primary SVT (supraventricular tachycardia) ([facility]) Other specified cardiac dysrhythmias documented in this encounter [facility] Work Phone: Evaluation note* Diagnosis Preoperative examination- Primary Preoperative examination, unspecified Single subsegmental pulmonary embolism without acute cor pulmonale (HCC) Vapes nicotine containing substance Marijuana use Cannabis abuse, unspecified Generalized anxiety disorder Depression, unspecified depression type Paroxysmal SVT (supraventricular tachycardia) (HCC) Paroxysmal supraventricular tachycardia Well adult exam- Primary Routine general medical examination at a [facility] care facility Paroxysmal SVT (supraventricular tachycardia) (HCC) Paroxysmal supraventricular tachycardia Palpitations [facility] Diagnosis Pulmonary embolism (Multi)- Primary Other pulmonary embolism and infarction SVT (supraventricular tachycardia) ([facility]) Other specified cardiac dysrhythmias Palpitations SVT (supraventricular tachycardia) ([facility])- Primary Other specified cardiac dysrhythmias SVT (supraventricular tachycardia) ([facility]) Other specified cardiac dysrhythmias documented in this encounter [facility] Work Phone: Evaluation note* Diagnosis SVT (supraventricular tachycardia) ([facility])- Primary Other specified cardiac dysrhythmias SVT (supraventricular tachycardia) ([facility]) Other specified cardiac dysrhythmias Palpitations SVT (supraventricular tachycardia) ([facility]) Other specified cardiac dysrhythmias documented in this encounter [facility] Work Phone: Evaluation note* Diagnosis SVT (supraventricular tachycardia) ([facility])- Primary Other specified cardiac dysrhythmias Atrial fibrillation, unspecified type (Multi) Palpitations documented in this encounter [facility] Work Phone: Evaluation note* Diagnosis Urinary tract infection in mother during first trimester of ([facility])- Primary Hypoglycemia Hypoglycemia, unspecified Nausea vomiting and diarrhea documented in this encounter [facility] Work Phone: Evaluation note* Diagnosis Preoperative [...] History of depression documented in this encounter [facility] note* Diagnosis Preoperative examination- Primary Preoperative examination, [...] episode of care documented in this encounter [facility] note* Diagnosis Preoperative examination- Primary Preoperative examination, unspecified Single subsegmental pulmonary embolism without acute cor pulmonale (HCC) Vapes nicotine containing substance Marijuana use Cannabis abuse, unspecified Generalized anxiety disorder Depression, unspecified depression type Paroxysmal SVT (supraventricular tachycardia) (HCC) Paroxysmal supraventricular tachycardia Encounter for screening for malformation using ultrasound- Primary 13 weeks gestation of state, incidental documented in this encounter [facility] note* Diagnosis Preoperative examination- Primary Preoperative examination, [...] [facility] Diagnosis Preoperative examination- Primary Preoperative examination, [...] [facility] Diagnosis Preoperative examination- Primary Preoperative examination, unspecified Single subsegmental pulmonary embolism without acute cor pulmonale (HCC) Vapes nicotine containing substance Marijuana use Cannabis abuse, unspecified Generalized anxiety disorder Depression, unspecified depression type Paroxysmal SVT (supraventricular tachycardia) (HCC) Paroxysmal supraventricular tachycardia Encounter for anatomic survey ([facility])- Primary Encounter for anatomic survey 20 weeks gestation of ([facility]) state, incidental documented [facility]* Diagnosis Preoperative examination- Primary Preoperative examination, unspecified Single subsegmental pulmonary embolism without acute cor pulmonale (HCC) Vapes nicotine containing substance Marijuana use Cannabis abuse, unspecified Generalized anxiety disorder Depression, unspecified depression type Paroxysmal SVT (supraventricular tachycardia) (HCC) Paroxysmal supraventricular tachycardia Supervision of other high risk pregnancies, second trimester ([facility])- Primary 20 weeks gestation of ([facility]) state, incidental History of shoulder dystocia in prior Rh negative state in antepartum period (HCC) Rhesus isoimmunization affecting management of mother, antepartum condition [facility] Diagnosis Preoperative examination- Primary Preoperative examination, [...] during , antepartum, third trimester ([facility]) * Assessment & Plan Note - Yamila Ballard MD - 07/27/2024 2:03 PM EDT Associated Problem(s): Rh negative state in antepartum period ([facility]) rh prohylaxis * Assessment & Plan [...] during , antepartum, third trimester ([facility]) d/c pepcid, trial prevacid [facility] Diagnosis SVT (supraventricular tachycardia) Other specified cardiac dysrhythmias documented in this encounter [facility] Work Phone: Evaluation note* Diagnosis Preoperative examination- Primary Preoperative examination, unspecified Single subsegmental pulmonary embolism without acute cor pulmonale (HCC) Vapes nicotine containing substance Marijuana use Cannabis abuse, unspecified Generalized anxiety disorder Depression, unspecified depression type Paroxysmal SVT (supraventricular tachycardia) (HCC) Paroxysmal supraventricular tachycardia Supervision of other high risk pregnancies, second trimester (HCC)- Primary 28 weeks gestation of ([facility]) state, incidental Rh negative state in antepartum period (HCC) Rhesus isoimmunization affecting management of mother, antepartum condition Need for vaccination Need for prophylactic vaccination and inoculation against unspecified single disease Encounter for sterilization Sterilization History of shoulder dystocia in prior Heartburn during , antepartum, third trimester (HCC) Maternal iron deficiency anemia complicating , third trimester ([facility])- Primary documented in this encounter [facility] note* Diagnosis Preoperative examination- Primary Preoperative examination, [...] high risk in third trimester ([facility])- Primary Unspecified high-risk Thrombocytopenia affecting (HCC) Antepartum anemia complicating in third trimester (HCC) History of shoulder dystocia in prior Paroxysmal SVT (supraventricular tachycardia) (HCC) Paroxysmal supraventricular tachycardia * Assessment & Plan Note - Prabhu Ortez MD - 08/10/2024 11:33 AM EDTAssociated Problem(s): Paroxysmal SVT (supraventricular tachycardia) (HCC) On metoprolol * Assessment & Plan Note - Prabhu Ortez MD - 08/10/2024 11:32 AM EDTAssociated Problem(s): Thrombocytopenia affecting (HCC) Repeat CBC in 3 weeks * Assessment & Plan Note - Prabhu Ortez MD - 08/10/2024 11:32 AM EDTAssociated Problem(s): Antepartum anemia complicating in third trimester ([facility]) IV iron scheduled * Assessment & Plan Note - Prabhu Ortez MD - 08/10/2024 11:32 AM EDTAssociated Problem(s): History of shoulder dystocia in prior Plans unless EFW less than prior . [facility] Diagnosis Preoperative examination- Primary Preoperative examination, unspecified Single subsegmental pulmonary embolism without acute cor pulmonale ([facility]) Vapes nicotine containing substance Marijuana use Cannabis abuse, unspecified Generalized anxiety disorder Depression, unspecified depression type Paroxysmal SVT (supraventricular tachycardia) ([facility]) Paroxysmal supraventricular tachycardia Supervision of other high risk pregnancies, second trimester ([facility])- Primary 28 weeks gestation of ([facility]) state, incidental Rh negative state in antepartum period ([facility]) Rhesus isoimmunization affecting management of mother, antepartum condition Need for vaccination Need for prophylactic vaccination and inoculation against unspecified single disease Encounter for sterilization Sterilization History of shoulder dystocia in prior Heartburn during , antepartum, third trimester ([facility]) Supervision of high risk in third trimester ([facility])- Primary Unspecified high-risk Thrombocytopenia affecting ([facility]) Antepartum anemia complicating in third trimester ([facility]) History of shoulder dystocia in prior Paroxysmal SVT (supraventricular tachycardia) ([facility]) Paroxysmal supraventricular tachycardia Maternal iron deficiency anemia complicating , third trimester ([facility])- Primary documented in this encounter [facility] note* Diagnosis Preoperative examination- Primary Preoperative examination, unspecified Single subsegmental pulmonary embolism without acute cor pulmonale ([facility]) Vapes nicotine containing substance Marijuana use Cannabis abuse, unspecified Generalized anxiety disorder Depression, unspecified depression type Paroxysmal SVT (supraventricular tachycardia) (HCC) Paroxysmal supraventricular tachycardia Supervision of other high risk pregnancies, second trimester ([facility])- Primary 28 weeks gestation of ([facility]) state, incidental Rh negative state in antepartum period ([facility]) Rhesus isoimmunization affecting management of mother, antepartum condition Need for vaccination Need for prophylactic vaccination and inoculation against unspecified single disease Encounter for sterilization Sterilization History of shoulder dystocia in prior Heartburn during , antepartum, third trimester ([facility]) Supervision of high risk in third trimester ([facility])- Primary Unspecified high-risk Thrombocytopenia affecting ([facility]) Antepartum anemia complicating in third trimester ([facility]) History of shoulder dystocia in prior Paroxysmal SVT (supraventricular tachycardia) ([facility]) Paroxysmal supraventricular tachycardia Maternal iron deficiency anemia complicating , third trimester ([facility])- Primary documented in this encounter [facility] note* Diagnosis Preoperative examination- Primary Preoperative examination, unspecified Single subsegmental pulmonary embolism without acute cor pulmonale ([facility]) Vapes nicotine containing substance Marijuana use Cannabis abuse, unspecified Generalized anxiety disorder Depression, unspecified depression type Paroxysmal SVT (supraventricular tachycardia) ([facility]) Paroxysmal supraventricular tachycardia Supervision of other high risk pregnancies, second trimester ([facility])- Primary 28 weeks gestation of ([facility]) state, incidental Rh negative state in antepartum period ([facility]) Rhesus isoimmunization affecting management of mother, antepartum condition Need for vaccination Need for prophylactic vaccination and inoculation against unspecified single disease Encounter for sterilization Sterilization History of shoulder dystocia in prior Heartburn during , antepartum, third trimester ([facility]) Supervision of high risk in third trimester ([facility])- Primary Unspecified high-risk Thrombocytopenia affecting ([facility]) Antepartum anemia complicating in third trimester ([facility]) History of shoulder dystocia in prior Paroxysmal SVT (supraventricular tachycardia) ([facility]) Paroxysmal supraventricular tachycardia Supervision of high risk in third trimester ([facility])- Primary Unspecified high-risk Thrombocytopenia affecting (HCC) History of shoulder dystocia in prior Antepartum anemia complicating in third trimester (HCC) Paroxysmal SVT (supraventricular tachycardia) (HCC) Paroxysmal supraventricular tachycardia 32 weeks gestation of (HCC) state, incidental * Assessment & Plan Note - Prabhu Ortez MD - 08/24/2024 10:56 AM EDTAssociated Problem(s): Thrombocytopenia affecting (HCC) Repeat CBC scheduled * Assessment & Plan Note - Prabhu Ortez MD - 08/24/2024 10:56 AM EDTAssociated Problem(s): History of shoulder dystocia in prior Plans * Assessment & Plan Note - Prabhu Ortez MD - 08/24/2024 10:56 AM EDTAssociated Problem(s): Antepartum anemia complicating in third trimester ([facility]) Last IV iron infusion today * Assessment & Plan Note - Prabhu Ortez MD - 08/24/2024 10:56 AM EDTAssociated Problem(s): Paroxysmal SVT (supraventricular tachycardia) ([facility]) Continue metoprolol [facility] Diagnosis Preoperative examination- Primary Preoperative examination, unspecified Single subsegmental pulmonary embolism without acute cor pulmonale ([facility]) Vapes nicotine containing substance Marijuana use Cannabis abuse, unspecified Generalized anxiety disorder Depression, unspecified depression type Paroxysmal SVT (supraventricular tachycardia) (HCC) Paroxysmal supraventricular tachycardia Supervision of other high risk pregnancies, second trimester (HCC)- Primary 28 weeks gestation of ([facility]) state, incidental Rh negative state in antepartum period ([facility]) Rhesus isoimmunization affecting management of mother, antepartum condition Need for vaccination Need for prophylactic vaccination and inoculation against unspecified single disease Encounter for sterilization Sterilization History of shoulder dystocia in prior Heartburn during , antepartum, third trimester ([facility]) Supervision of high risk in third trimester ([facility])- Primary Unspecified high-risk Thrombocytopenia affecting ([facility]) Antepartum anemia complicating in third trimester ([facility]) History of shoulder dystocia in prior Paroxysmal SVT (supraventricular tachycardia) ([facility]) Paroxysmal supraventricular tachycardia Supervision of high risk in third trimester ([facility])- Primary Unspecified high-risk Thrombocytopenia affecting ([facility]) History of shoulder dystocia in prior Antepartum anemia complicating in third trimester ([facility]) Paroxysmal SVT (supraventricular tachycardia) ([facility]) Paroxysmal supraventricular tachycardia 32 weeks gestation of ([facility]) state, incidental Maternal iron deficiency anemia complicating , third trimester ([facility])- Primary [facility] Diagnosis Preoperative examination- Primary Preoperative examination, unspecified Single subsegmental pulmonary embolism without acute cor pulmonale ([facility]) Vapes nicotine containing substance Marijuana use Cannabis abuse, unspecified Generalized anxiety disorder Depression, unspecified depression type Paroxysmal SVT (supraventricular tachycardia) ([facility]) Paroxysmal supraventricular tachycardia Supervision of other high risk pregnancies, second trimester ([facility])- Primary 28 weeks gestation of ([facility]) state, incidental Rh negative state in antepartum period ([facility]) Rhesus isoimmunization affecting management of mother, antepartum condition Need for vaccination Need for prophylactic vaccination and inoculation against unspecified single disease Encounter for sterilization Sterilization History of shoulder dystocia in prior Heartburn during , antepartum, third trimester ([facility]) Supervision of high risk in third trimester ([facility])- Primary Unspecified high-risk Thrombocytopenia affecting ([facility]) Antepartum anemia complicating in third trimester ([facility]) History of shoulder dystocia in prior Paroxysmal SVT (supraventricular tachycardia) ([facility]) Paroxysmal supraventricular tachycardia Supervision of high risk in third trimester ([facility])- Primary Unspecified high-risk Thrombocytopenia affecting ([facility]) History of shoulder dystocia in prior Antepartum anemia complicating in third trimester ([facility]) Paroxysmal SVT (supraventricular tachycardia) ([facility]) Paroxysmal supraventricular tachycardia 32 weeks gestation of ([facility]) state, incidental Encounter for ultrasound to check growth ([facility])- Primary Encounter for routine screening for malformation using ultrasonics History of shoulder dystocia in prior 34 weeks gestation of ([facility]) state, incidental documented in this encounter [facility] note* Diagnosis Preoperative examination- Primary Preoperative examination, unspecified Single subsegmental pulmonary embolism without acute cor pulmonale ([facility]) Vapes nicotine containing substance Marijuana use Cannabis abuse, unspecified Generalized anxiety disorder Depression, unspecified depression type Paroxysmal SVT (supraventricular tachycardia) ([facility]) Paroxysmal supraventricular tachycardia Supervision of other high risk pregnancies, second trimester ([facility])- Primary 28 weeks gestation of ([facility]) state, incidental Rh negative state in antepartum period ([facility]) Rhesus isoimmunization affecting management of mother, antepartum condition Need for vaccination Need for prophylactic vaccination and inoculation against unspecified single disease Encounter for sterilization Sterilization History of shoulder dystocia in prior Heartburn during , antepartum, third trimester ([facility]) Supervision of high risk in third trimester ([facility])- Primary Unspecified high-risk Thrombocytopenia affecting ([facility]) Antepartum anemia complicating in third trimester ([facility]) History of shoulder dystocia in prior Paroxysmal SVT (supraventricular tachycardia) ([facility]) Paroxysmal supraventricular tachycardia Supervision of high risk in third trimester ([facility])- Primary Unspecified high-risk Thrombocytopenia affecting ([facility]) History of shoulder dystocia in prior Antepartum anemia complicating in third trimester ([facility]) Paroxysmal SVT (supraventricular tachycardia) ([facility]) Paroxysmal supraventricular tachycardia 32 weeks gestation of ([facility]) state, incidental Supervision of high risk in third trimester ([facility])- Primary Unspecified high-risk 34 weeks gestation of ([facility]) state, incidental History of shoulder dystocia in prior * Assessment & Plan Note - Yamila Ballard MD - 09/08/2024 8:33 AM EDT Associated Problem(s): History of shoulder dystocia in prior plans c/s and tubal Orders: URINE OB DIP B/O documented in this encounter [facility] note* Diagnosis Preoperative examination- Primary Preoperative examination, unspecified Single subsegmental pulmonary embolism without acute cor pulmonale ([facility]) Vapes nicotine containing substance Marijuana use Cannabis abuse, unspecified Generalized anxiety disorder Depression, unspecified depression type Paroxysmal SVT (supraventricular tachycardia) (HCC) Paroxysmal supraventricular tachycardia Supervision of other high risk pregnancies, second trimester (HCC)- Primary 28 weeks gestation of ([facility]) state, incidental Rh negative state in antepartum period ([facility]) Rhesus isoimmunization affecting management of mother, antepartum condition Need for vaccination Need for prophylactic vaccination and inoculation against unspecified single disease Encounter for sterilization Sterilization History of shoulder dystocia in prior Heartburn during , antepartum, third trimester ([facility]) Supervision of high risk in third trimester ([facility])- Primary Unspecified high-risk Thrombocytopenia affecting ([facility]) Antepartum anemia complicating in third trimester ([facility]) History of shoulder dystocia in prior Paroxysmal SVT (supraventricular tachycardia) ([facility]) Paroxysmal supraventricular tachycardia Supervision of high risk in third trimester ([facility])- Primary Unspecified high-risk Thrombocytopenia affecting ([facility]) History of shoulder dystocia in prior Antepartum anemia complicating in third trimester ([facility]) Paroxysmal SVT (supraventricular tachycardia) ([facility]) Paroxysmal supraventricular tachycardia 32 weeks gestation of ([facility]) state, incidental Supervision of high risk in third trimester ([facility])- Primary Unspecified high-risk 34 weeks gestation of ([facility]) state, incidental History of shoulder dystocia in prior 35 weeks gestation of ([facility])- Primary state, incidental Irregular uterine contractions ([facility]) Other and unspecified uterine inertia, unspecified as to episode of care Supervision of high risk in third trimester ([facility]) Unspecified high-risk documented in this [facility] Author Yamila Ballard [facility] Note Date/Time September 09, 2024 3:02 pm [facility] Medical Records Department [address] [place] [address] OB Triage Physician Note 09/09/24 1451 MR#: [id number] Acct: [id number] Name: KEAGAN ALICIA Rep #:[id number] : 2000 23 From: Yamila Ballard MD PCP: ZIA Duke Status:REG Gayla Welch Location: [id number] HPI - General General Date of Service: 09/09/24 Chief Complaint: vaginal discharge HPI Narrative KEAGAN ALICIA, is a 23 F who presents complaining of getting out of bed and feeling a large gush of fluid. She states she is still having some watery discharge. She denies any gross vaginal bleeding. She has had good movement. She reports she still having contractions and has been having contractions for the past 2 days. She states they are a little bit worse today. Maternal Data Information LUZ Calculator Estimated Delivery Date Method Current WG Current Estimate 10/13/24 Manual 35w 1d Final LUZ: 10/13/24 Gestational age: 35 02/16 [facility] Medical History (Updated 09/09/24 @ 14:[address] Yamila Ballard MD) Pulmonary embolism Anxiety depression Depression Home Medications ?Medication ?Instructions ?Recorded ?Last Taken ?Type vit no.95-ferrous 1 tab PO DAILY 09/08/24 07:00 History fumarate 28 mg-folic acid 800 mcg 1 TA B tablet () aspirin 81 mg capsule 81 mg PO DAILY 09/08/24 07/ 07:00 History 81 mg metoprolol succinate 25 mg 25 mg PO BID SVT 09/08/24 0 09/08/24 20:00 History tablet,extended release 24 hr 25 mg Allergy/AdvReac Type Severity Reaction Status Date / Time latex AdvReac Mild Itching Verified 09/09/24 11:39 Family History Father Drug abuse Surgical History (Updated 07/02/23 @ 00:03 by Crikcet Villarreal) Hx of cholecystectomy History of tonsillectomy and adenoidectomy Social History (Updated 06/24/23 @ 12:[address] Fabián Bob MD) household members: children Smoking Status: Current every day smoker tobacco type: e-cigarettes History Elective abortions Hx Para 1 Spontaneous abortions Hx # Term Pregnancies Ectopic pregnancies Hx # Pregnancies Multiple births # of living children Physical Exam Narrative Skin warm dry and intact Abdomen soft nontender nondistended gravid , size appropriate for gestational age Extremities: Trace edema no clubbing or cyanosis Cervix: 1/50/-4, medium consistency and posterior Const alert and no apparent distress General Appearance: cooperative and comfortable NST FHR Rate Baby A Baseline: 140 Variability:: Moderate Accelerations:: 15 x 15 NST Reactive:: Yes FHR Category:: Category I (for > 20 min before d/c) Uterine Activity:: q 4 min ctxs, mild to palpation Assessment & Plan (1) High risk multigravida in third trimester: (2) History of delivery: PLAN: Patient is not in active labor. Reassured patient. Discussed with her return for signs or symptoms of labor.. (3) Threatened labor: QUALIFIERS: Trimester: third trimester Qualified Code(s): O47.03 - False labor before 37 completed weeks of gestation, third trimester PLAN: Patient is having contractions but they are mild and not resulting in cervical change. Sent home with labor precautions, follow-up in the office as scheduled. (4) Vaginal discharge: PLAN: No evidence of rupture of membranes. Physiological discharge on exam, head is ballotable on cervical exam. Reassured patient no evidence of rupture membranes follow-up in the office as scheduled or as needed (5) arrhythmia affecting , antepartum: PLAN: Initially upon admission heart tones were difficult to interpret because of the arrhythmia. However now it is category 1 and reactive. No decelerations noted. Okay to DC home with kick counts and follow-up in the office asscheduled or as needed. Biophysical profile was initially ordered when heart tones were difficult to interpret but is now canceled. Patient had a growth scan earlier this week in the office with normal fluid and LGA fetus. PLAN: Plan When I went into the room to talk with the patient and her support person and review the monitoring strip, I discussed with them that she was not an active labor and would be discharged home. Patient then asked if she could be induced and I discussed with her that we had no medical reason to induce her at 35 weeks and patient asked can you make up a reason?. I d/w her that I cannotand that we would not try to stop spont. active labor but wouldn't induce her orelectivly delivery her. We reviewed she may have contractions but if they do not result in cervical dilation we would not mold insert changer. 09/09/24 1502 <Electronically signed by Yamila linn MD> Date _ Yamila Ballard MD Cosigner Signature (if applicable): Date CC: ZIA Amador; Dr. Yamila Ballard MD ~ Signed [facility] Work Phone: Hospital Discharge instructions Additional Instructions Avoid fatty foods including animal meats as much as you are able.[facility] Work Phone: Hospital Discharge instructions* Attachments The following attachments cannot be sent through Care Everywhere. * Managing pain after surgery ([place]) [facility] Work Phone: Hospital Discharge instructions* Attachments The following attachments cannot be sent through Care Everywhere. * Managing acute pain at home ([place]) [facility] Work Phone: Hospital Discharge instructions* Attachments The following attachments cannot be sent through Care Everywhere. * Pulmonary Embolism (Blood Clot in the Lungs) Discharge Instructions ([place]) [facility] Work Phone: Hospital Discharge instructions* Attachments The following attachments cannot be sent through Care Everywhere. * Heavy periods ([place]) [facility] Work Phone: Hospital Discharge instructions* Attachments The following attachments cannot be sent through Care Everywhere. * Low Blood Sugar, Adult ED ([place]) * Nausea and Vomiting, Adult ED ([place]) * Urinary tract infections in ([place]) [facility] Work Phone: Hospital Discharge instructions* Attachments The following attachments cannot be sent through Care Everywhere. * Signs of Labor ([facility]) ([place]) * : UTI (Urinary Tract Infection) ([place]) documented in [facility] HospitalReason for referral (narrative)* Outpatient Procedure (Routine) - Authorized Specialty Diagnoses / Procedures Referred By Contpari t Referred To Contact [facility] Diagnoses Abnormal uterine bleeding (AUB) Encounter for removal of intrauterine contraceptive device Encounter for insertion of intrauterine contraceptive device Procedures INSERT INTRAUTERINE DEVICE LEVONORGESTREL IU 52MG 5 YR INSERT INTRAUTERINE DEVICE REMOVE INTRAUTERINE DEVICE Prabhu Ortez MD [address] [place] [address] [address] Referral ID Status Reason Start Date Expiration Date Visits Requested Visits Authorized [id number] Authorized Auto-Generat ed Referral 06/26/2023 02/10/2024 2 2 [facility] for referral (narrative)* Diagnostic Procedure Only (Routine) - Authorized Specialty Diagnoses / Procedures Referred By Doeac t Referred To Contact [facility] Diagnoses Pelvic pain in female Intrauterine contraceptive device threads lost, initial encounter Irregular bleeding Procedures PELVIC US WHI US PELVIC NONOBSTETRIC REAL-TIME IMAGE COMPLETE Sandra Cole APRN.CNP [address] [place] [address] [address] Referral ID Status Reason Start Date Expiration Date Visits Requested Visits Authorized [id number] Authorized Auto-Generat ed Referral 08/18/2023 08/17/2024 1 1 [facility] for referral (narrative)* Diagnostic Procedure Only (Routine) - Closed Specialty Diagnoses / Procedures Referred By Contac t Referred To Contact XR IMAGING Diagnoses Malpositioned IUD, sequela Pelvic pain in female Procedures XR PELVIS 3V AP/INLET/OUTLET RADIOLOGIC EXAM PELVIS COMPL MINIMUM 3 VIEWS Mary Jo Chance MD [address] [place] [address] [place] [id number] Referral ID Status Reason Start Date Expiration Date V isits Requested Visits Authorized [id number] Closed Auto-Generate d Referral 08/20/2023 09/18/2024 1 1 * Outpatient Procedure (Routine) - Authorized Specialty Diagnoses / Procedures Referred By Tone musa Referred To Contact [facility] Diagnoses Encounter for IUD removal Encounter for insertion of intrauterine contraceptive device Procedures REMOVE INTRAUTERINE DEVICE REMOVE INTRAUTERINE DEVICE INSERT INTRAUTERINE DEVICE LEVONORGESTREL IU 52MG 5 YR Mary Jo Chance MD [address] [place] [address] [place] [phone] Referral ID Status Reason Start Date Expiration Date Visits Requested Visits Authorized [id number] Authorized Auto-Generat ed Referral 08/20/2023 02/10/2024 2 2 [facility] (n[facility]ative)No reason for referral information availableWWexner Medical Center Work Phone: Reason for visit Narrative* Diagnostic Procedure Only (Routine) - Closed Specialty Diagnoses / Procedures Referred By Tone musa Referred To Contact [facility] Diagnoses Pelvic pain in female Intrauterine contraceptive device threads lost, initial encounter Irregular bleeding Procedures PELVIC US WHI US PELVIC NONOBSTETRIC REAL-TIME IMAGE COMPLETE Sandra Cole, NOA.ULISSES [address] [place] [address] [place] [phone] Referral ID Status Reason Start Date Expiration Date V isits Requested Visits Authorized [id number] Closed Auto-Generate d Referral 08/18/2023 08/17/2024 1 1 [facility] for visit Narrative* Diagnostic Procedure Only (Routine) - Closed Specialty Diagnoses / Procedures Referred By Tone musa Referred To Contact XR IMAGING Diagnoses Malpositioned IUD, sequela Pelvic pain in female Procedures XR PELVIS 3V AP/INLET/OUTLET RADIOLOGIC EXAM PELVIS COMPL MINIMUM 3 VIEWS Mary Jo Chance MD [address] [place] [address] [place] [id number] Referral ID Status Reason Start Date Expiration Date V isits Requested Visits Authorized [id number] Closed Auto-Generate d Referral 08/20/2023 09/18/2024 1 1 [facility] for visit Narrative* Outpatient Procedure (Routine) - Closed Specialty Diagnoses / Procedures Referred By Contac t Referred [facility] Diagnoses Paroxysmal SVT (supraventricular tachycardia) (HCC) Palpitations Procedures ECHO ECHO TTHRC R-T 2D W/WOM-MODE COMPL SPEC&COLR D Rachell Amador, STEAM FINISHER.SERVICE LEARNING COORDINATOR [address] [place] [address] [facility] [address] [place] [address] Referral ID Status Reason Start Date Expiration Date V isits Requested Visits Authorized [id number] Closed Auto-Generate d Referral 08/20/2023 10/03/2023 1 1 [facility] for visit Narrative* Auth/Cert Specialty Diagnoses / Procedures Referred By Contac t Referred To Contact Diagnoses SVT (supraventricular tachycardia) (CMS-HCC) SVT (supraventricular tachycardia) (CMS-HCC) [I47.10] Procedures MS COMPRE EP EVAL ABLTJ 3D MAPG TX SVT Ablation SVT (11976) Ramiro Hugo MD [address] [facility] [address], [address] [place] [address] [address] [place] [address] Referral ID Status Reason Start Date Expiration Date Visits Re quested Visits Authorized [id number] [address] [facility] Work Phone: Reason for visit Narrative* [place] Prior Authorization (Routine) - Authorized Specialty Diagnoses / Procedures Referred By Contac t Referred To Contact Diagnoses Maternal iron deficiency anemia complicating , third trimester (HCC) Nayely Gil PA-C [address] [place] [address] Phone: tel: fax: INFUSION [address] [place] [address] Phone: tel: fax: Referral ID Status Reason Start Date Expiration Date V isits Requested Visits Authorized [id number] Authorized 08/06/2024 02/09/2025 1 100 [facility] Summary Purpose Family History No Family History Records Found Relationship Condition Age at Onset Recorded Date/T vanessa father Drug abuse Unknown Advance Directives No Advanced Directives Records Found Advance Directive Response Recorded Date/ Time Living Will No January 07, 2 021 2:03pm Power of Entry Level Business Analyst No January 07, 2021 2:03pm Documents on File Type Date Recorded 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 Advance Directive(s) 05/15/2021 9:17 AM Advance Directive Response Recorded Date/ Time Living Will No January 07, 2 021 1:03pm Power of Entry Level Business Analyst No January 07, 2021 1:03pm Advance Directive Response Recorded Date/ Time Living Will No August 17, 2022 1 0:35am Power of Entry Level Business Analyst No August 17, 2022 10:35am Advance Directive Response Recorded Date/ Time Living Will No August 29, 2022 3:34pm Power of Entry Level Business Analyst No August 29 3:34pm Date Activated Date [...] June 22, 2023 9 :41am Power of Entry Level Business Analyst No June 22, 2023 9:41am Date Activated Date Inactivated Comments 07/01/2017 10:18 AM Chief Complaint and Reason for Visit Chief Complaint SAB Chief Complaint PENITENTIARY DRUG USE Chief Complaint PENITENTIARY DRUG USE PIN ATTACHER DRUG USE Chief Complaint abd pain Chief Complaint abd pain ABD Chief Complaint CHEST PAIN Chief Complaint Admit Date R/O PRE E August 03, 2024 1:17 pm Chief Complaint Admit Date R/O PRE E August 03, 2024 1:17 pm R/O LABOR September 07, 2024 10:5 0pm Reason for Visit Admit Date Headache in August 03, 2024 1: 17pm Chief Complaint Admit Date R/O PRE E August 03, 2024 1:17 pm R/O LABOR September 07, 2024 10:5 0pm R/O RUM September 09, 2024 11:0 9am Reason for Visit Admit Date Headache in August 03, 2024 1: 17pm High risk multigravida in third trimeste r September 07, 2024 10:50pm Threatened labor September 07, 2024 10:50pm arrhythmia affecting , an tepartum September 09, 2024 11:09am High risk multigravida in third trimeste r September 09, 2024 11:09am History of delivery September 09, 025 11:09am Threatened labor September 09, 2024 11:09am Vaginal discharge September 09, 2024 11:0 9am Reason for Referral Specialty Diagnoses / Procedures Referred By Contpari t Referred To Contact Diagnoses Episode of recurrent major depressive disorder, unspecified depression episode severity (HCC) Anxiety PTSD (post-traumatic stress disorder) Post depression Procedures CONSULT TO [facility] OFFICE/OUTPATIENT [facility] 60 MINUTES Gino Valero APRN.FRANDY [address] [address] Referral ID Status Reason Start Date Expiration Date Visits Requested Visits Authorized [id number] Authorized PCP Requested Referral 04/23/2023 04/22/2024 1 1 Specialty Diagnoses / Procedures Referred By Contac t Referred To Contact Cardiology Diagnoses Single subsegmental pulmonary embolism without acute cor pulmonale (Multi) Procedures Vascular US Lower Extremity Venous Duplex Bilateral Norbert Herndon MD [address] [place] [address] [address] [place] [address] Referral ID Status Reason Start Date Expiration Date Visits Requested Visits Authorized [id number] Authorized Perform Procedure 06/25/2023 06/24/2024 1 1 Specialty Diagnoses / Procedures Referred By Contac t Referred To Contact Cardiology Diagnoses Palpitations Procedures Holter Or Event Corrugator Operator Helper Norbert Herndon MD [address] [place] [address] [address] [place] [address] Referral ID Status Reason Start Date Expiration Date V isits Requested Visits Authorized [id number] Pending Review 06/25/2023 06/24/2024 1 1 Referral ID Status Reason Start Date Expiration Date V isits Requested Visits Authorized [id number] Authorized 06/25/2023 06/24/2024 1 1 Specialty Diagnoses / Procedures Referred By Contac t Referred To Contact Cardiology / [facility]PART[facility] Diagnoses Paroxysmal SVT (supraventricular tachycardia) (HCC) Palpitations Procedures CONSULT TO CARDIOLOGY OFFICE/OUTPATIENT [facility] 60 MINUTES Rachell Amador, STEAM FINISHER.SERVICE LEARNING COORDINATOR [address] [place] [address] Jonathan Dutta [address] [place] [address] Referral ID Status Reason Start Date Expiration Date Visits Requested Visits Authorized [id number] Authorized PCP Requested Referral 07/31/2023 07/30/2024 1 1 Specialty Diagnoses / Procedures Referred By Contac t [facility] Diagnoses Paroxysmal SVT (supraventricular tachycardia) (HCC) Palpitations Procedures ECHO ECHO TTHRC R-T 2D W/WOM-MODE COMPL SPEC&COLR D Rachell Amador STEAM FINISHER.SERVICE LEARNING COORDINATOR [address] [place] [address] [facility] [address] [place] [address] Referral ID Status Reason Start Date Expiration Date Visits Requested Visits Authorized [id number] Additional Clinical Info Needed Auto-Generat ed Referral 07/31/2023 07/30/2024 1 1 Specialty Diagnoses / Procedures Referred By Contac t Referred To Contact [facility] Diagnoses Paroxysmal SVT (supraventricular tachycardia) (HCC) Procedures CONSULT TO ELECTROPHYSIOLOGY OFFICE/OUTPATIENT [facility] 60 MINUTES Rachell Amador, STEAM FINISHER.SERVICE LEARNING COORDINATOR [address] [place] [address] [place] [address] Referral ID Status Reason Start Date Expiration Date Visits Requested Visits Authorized [id number] Authorized PCP Requested Referral 07/31/2023 07/30/2024 1 1 Specialty Diagnoses / Procedures Referred By Contac t Referred To Contact General Surgery Diagnoses Functional diarrhea Procedures CONSULT TO GENERAL SURGERY OFFICE/OUTPATIENT [facility] 60 MINUTES Mary Jo Chance MD [address] [place] [address] Referral ID Status Reason Start Date Expiration Date Visits Requested Visits Authorized [id number] Authorized PCP Requested Referral 09/23/2023 2024 1 1 Specialty Diagnoses / Procedures Referred By Contac t Referred To Contact Gastroenterology Diagnoses Functional diarrhea Procedures CONSULT TO GASTROENTEROLOGY OFFICE/OUTPATIENT [facility] 60 MINUTES Mary Jo Chance MD [address] [place] [address] Referral ID Status Reason Start Date Expiration Date Visits Requested Visits Authorized [id number] Authorized PCP Requested Referral 09/23/2023 2024 1 1 Specialty Diagnoses / Procedures Referred By Contac t Referred To Contact Gastroenterology Diagnoses Functional diarrhea Status post laparoscopic cholecystectomy Procedures CONSULT TO GASTROENTEROLOGY OFFICE/OUTPATIENT [facility] 60 MINUTES Conor Duarte MD [address] [place] [address] Referral ID Status Reason Start Date Expiration Date Visits Requested Visits Authorized [id number] Authorized PCP Requested Referral 09/29/2023 09/28/2024 1 1 Specialty Diagnoses / Procedures Referred By Contac t Referred To Contact Diagnoses Pulmonary embolism (Multi) SVT (supraventricular tachycardia) ([facility]) Palpitations Procedures ECG 12 lead (Clinic Performed) Ramiro Hugo MD [address] [facility] [address], [facility] [address] [place] [address] Referral ID Status Reason Start Date Expiration Date V isits Requested Visits Authorized [id number] Authorized 08/21/2023 08/20/2024 1 1 Specialty Diagnoses / Procedures Referred By Contac t Referred To Contact Hematology Diagnoses History of pulmonary embolism Supervision of other high risk pregnancies, first trimester Procedures CONSULT TO HEMATOLOGY OFFICE/OUTPATIENT [facility] 60 MINUTES Jaquelin Hi APRN.CNM [address] [address] Referral ID Status Reason Start Date Expiration Date Visits Requested Visits Authorized [id number] Authorized PCP Requested Referral 03/10/2024 03/10/2025 1 1 Specialty Diagnoses / Procedures Referred By Contac t Referred To Contact [facility] Diagnoses with uncertain dates, antepartum Procedures OBSTETRIC ULTRASOUND WHI US PREG UTERUS AFTER 1ST TRIMEST 1/ GESTATION Jaquelin Hi APRN.CNM [address] [address] [facility] [address] [place] [address] Referral ID Status Reason Start Date Expiration Date Visits Requested Visits Authorized [id number] Authorized Auto-Generat ed Referral 03/09/2024 03/09/2025 1 1 Referral ID Status Reason Start Date Expiration Date Visits Requested Visits Authorized [id number] Authorized Auto-Generat ed Referral 03/09/2024 03/09/2025 1 1 Specialty Diagnoses / Procedures Referred By Contac t Referred To Contact Jaquelin Hi APRN.CNM [address] [address] Referral ID Status Reason Start Date Expiration Date V isits Requested Visits Authorized [id number] Pending Review 1 1 Health Concerns Problem Noted Date Diagnosed Date [facility] CC Education - COMMON 10/10/2022 Problem Noted Date Diagnosed Date [facility] Education - COMMON 10/10/2022 [facility] Education - [place]ON 10/23/2022 [place] - [place] 10/23/2022 Problem Noted Date Diagnosed Date [facility] CC Education - COMMON 10/10/2022 [facility] Education - COMMON 10/23/2022 Education - [place] 10/23/2022 Problem Noted Date Diagnosed Date [facility] CC Education - COMMON 10/10/2022 [facility] Education - COMMON 10/23/2022 Education - [place] 10/23/2022 Problem Noted Date Diagnosed Date [facility] CC Education - COMMON 10/10/2022 [facility] CC Education - COMMON 10/23/2022 Education - [place] 10/23/2022 Problem Noted Date Diagnosed Date [facility] CC Education - COMMON 10/10/2022 [facility] CC Education - COMMON 10/23/2022 Education - [place] 10/23/2022 Problem Noted Date Diagnosed Date [facility] CC Education - COMMON 10/10/2022 [facility] CC Education - [place]ON 10/23/2022 Education - [place] 10/23/2022 Additional Source Comments INFORMATION SOURCE (unrecogn ized section and content) DATE CREATED AUTHOR 08/05/2017 [facility] DATE CREATED AUTHOR AUTHOR'S ORGANIZ ATION 08/07/2017 [facility] DATE CREATED AUTHOR AUTHOR'S ORGANIZ ATION 07/21/2019 [facility] DATE CREATED AUTHOR AUTHOR'S ORGANIZ ATION 07/21/2022 [facility] DATE CREATED AUTHOR AUTHOR'S ORGANIZ ATION 08/23/2022 [employer] DATE CREATED AUTHOR AUTHOR'S ORGANIZ ATION 07/15/2023 [facility] DATE CREATED AUTHOR AUTHOR'S ORGANIZ ATION 09/16/2023 [facility] DATE CREATED AUTHOR AUTHOR'S ORGANIZ ATION 10/08/2023 [facility] DATE CREATED AUTHOR AUTHOR'S ORGANIZ ATION 01/30/2024 [facility] DATE CREATED AUTHOR AUTHOR'S ORGANIZ ATION 02/05/2024 [facility] DATE CREATED AUTHOR AUTHOR'S ORGANIZ ATION 02/24/2024 [facility] DATE CREATED AUTHOR AUTHOR'S ORGANIZ ATION 08/04/2024 [facility] DATE CREATED AUTHOR AUTHOR'S ORGANIZ ATION 09/05/2024 [facility] DATE CREATED AUTHOR AUTHOR'S ORGANIZ ATION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 Referred By Tone t Referred To Contact Hematology and Oncology Saturnino Velázquez, DO [address] [facility] Department [place] [address] Miki Jaramillo MD [address] [place] [address] Dr [address] [place] [phone] Referral ID Status Reason Start Date Expiration Date Visits Requested Visits Authorized [id number] Authorized Specialty Services Required 06/21/2023 06/20/2024 1 1 Specialty Diagnoses / Procedures Referred By Tone t Referred To Contact Cardiology Diagnoses Single subsegmental pulmonary embolism without acute cor pulmonale (Multi) Procedures Vascular US Lower Extremity Venous Duplex Bilateral Norbert Herndon MD [address] [place] [address] Dr Saul [address], [address] [address] Referral ID Status Reason Start Date Expiration Date Visits Requested Visits Authorized [id number] Authorized Perform Procedure 06/25/2023 06/24/2024 1 1 Specialty Diagnoses / Procedures Referred By Tone musa Referred To Contact Cardiology Diagnoses Palpitations Procedures Holter Or Event Corrugator Operator Helper Norbert Herndon MD [address] [place] [address] Dr Saul [address], [address] [address] Referral ID Status Reason Start Date Expiration Date V isits Requested Visits Authorized [id number] Authorized 06/25/2023 06/24/2024 1 1 Reason Comments [...] Referred By Tone t Referred To Contact [facility] Diagnoses Encounter for IUD removal Encounter for insertion of intrauterine contraceptive device Procedures REMOVE INTRAUTERINE DEVICE REMOVE INTRAUTERINE DEVICE INSERT INTRAUTERINE DEVICE LEVONORGESTREL IU 52MG 5 YR Mary Jo Chance MD [address] [place] [address] [facility] [address] [place] [address] Referral ID Status Reason Start Date Expiration Date Visits Requested Visits Authorized [id number] Authorized Auto-Generat ed Referral 08/20/2023 02/10/2024 2 [...] diarrhea Procedures CONSULT TO GENERAL SURGERY OFFICE/OUTPATIENT NEW [facility]DM 60 MINUTES Mary Jo Chance MD [address] [place] [address] Referral ID Status Reason Start Date Expiration Date V isits Requested Visits Authorized [id number] Closed PCP Requested Referral 09/23/2023 2024 1 1 Reason Comments Diarrhea Specialty Diagnoses / Procedures Referred By Tone musa Referred To Contact Gastroenterology Diagnoses Functional diarrhea Status post laparoscopic cholecystectomy Procedures CONSULT TO GASTROENTEROLOGY OFFICE/OUTPATIENT [facility] MDM 60 MINUTES Conor Duarte MD [address] [place] [address] Referral ID Status Reason Start Date Expiration Date V isits Requested Visits Authorized [id number] Closed PCP Requested Referral 09/29/2023 09/28/2024 1 1 Reason Comments Problem Visit Reason Comments 3 month f/u Reason Comments Wellness Reason Comments Establish Care Palpitations Specialty Diagnoses / Procedures Referred By Tone musa Referred To Contact Diagnoses Pulmonary embolism (Multi) SVT (supraventricular tachycardia) ([facility]) Palpitations Procedures ECG 12 lead (Clinic Performed) Ramiro Hugo MD [address] [facility] 3, [address] [address] Referral ID Status Reason Start Date Expiration Date V isits Requested Visits Authorized [id number] Authorized 08/21/2023 08/20/2024 1 1 Reason Comments Follow-up Ablation Specialty Diagnoses / Procedures Referred By Contac t Referred To Contact Diagnoses Atrial fibrillation, unspecified type (Multi) Procedures ECG 12 lead (Clinic Performed) Ramiro Hugo MD [address] [facility] 3, [address] [address] Phone: tel: fax: Referral ID Status Reason Start Date Expiration Date V isits Requested Visits Authorized [id number] Authorized 01/27/2024 01/26/2025 1 1 Reason Comments Abdominal Pain Upper abd pain with n/v/d x 3 days I feel dehydrated Reason Onset Date Comments ER F/U 02/18/2024 [facility] 02/18/2024 Reason Comments Initial OB Visit Reason Comments Tire Recapper - Other PRAF Reason Comments US Specialty Diagnoses / Procedures Referred By Contac t Referred To Contact [facility] Diagnoses with uncertain dates, antepartum Procedures OBSTETRIC ULTRASOUND WHI US PREG UTERUS AFTER 1ST TRIMEST GESTATION Jaquelin Hi APRN.CNM [address] [place] [address] Phone: tel: fax:[phone] [address] Referral ID Status Reason Start Date Expiration Date V isits Requested Visits Authorized [id number] Closed Auto-Generate d Referral 03/09/2024 03/09/2025 1 1 Reason Onset Date Comments Care 04/07/2024 Reason Onset Date Comments Care 05/04/2024 Reason Comments Breast Pump RX Specialty Diagnoses / Procedures Referred By Contac t Referred To Contact [facility] Diagnoses with uncertain dates, antepartum (HCC) Procedures OBSTETRIC ULTRASOUND WHI US PREG UTERUS AFTER 1ST TRIMEST GESTATION Jaquelin Hi APRN.CNM [address] [place] [address] Phone: tel: fax: [facility] [address] [place] [address] Referral ID Status Reason Start Date Expiration Date V isits Requested Visits Authorized [id number] Closed Auto-Generate d Referral 03/09/2024 03/09/2025 1 1 Reason Onset Date Comments Care 06/01/2024 Reason Onset Date Comments Care 07/27/2024 Reason Comments 6 month f/u Specialty Diagnoses / Procedures Referred By Contac t Referred To Contact Diagnoses SVT (supraventricular tachycardia) Procedures ECG 12 lead (Clinic Performed) Ramiro Hugo MD [address] [facility] [address], [address] [address] Phone: tel: fax: Referral ID Status Reason Start Date Expiration Date V isits Requested Visits Authorized [id number] Authorized 08/03/2024 08/03/2025 1 1 Reason Comments Anemia Specialty Diagnoses / Procedures Referred By Contac t Referred To Contact Referral ID Status Reason Start Date Expiration Date V isits Requested Visits Authorized [id number] New Request 08/03/2024 10/02/2024 1 1 Reason Onset Date Comments Care 08/10/2024 Reason Comments Infusion Specialty Diagnoses / Procedures Referred By Contac t Referred To Contact Diagnoses Maternal iron deficiency anemia complicating , third trimester (HCC) Nayely Gil PA-C [address] [place] [address] Phone: tel: fax: [facility] [address] [place] [address] Phone: tel: fax: Referral ID Status Reason Start Date Expiration Date V isits Requested Visits Authorized [id number] Authorized 08/06/2024 02/09/2025 1 99 Referral ID Status Reason Start Date Expiration Date V isits Requested Visits Authorized [id number] Authorized 08/06/2024 02/09/2025 1 100 Reason Onset Date Comments Care 08/24/2024 Specialty Diagnoses / Procedures Referred By Contac t Referred To Contact [facility] Diagnoses History of shoulder dystocia in prior Procedures OBSTETRIC ULTRASOUND WHI US PREG UTERUS AFTER 1ST TRIMEST GESTATION Prabhu Ortez MD [address] [place] [address] Phone: tel: fax: [facility] [address] [place] [address] Referral ID Status Reason Start Date Expiration Date V isits Requested Visits Authorized [id number] Closed Auto-Generate d Referral 08/24/2024 08/24/2025 1 1 Reason Onset Date Comments Care 09/07/2024 Reason Onset Date Comments Care 09/08/2024 Reason Comments Care Reason Comments Contractions Care Teams (unrecognized sec tion and content) Team Status: Active Member Role Status Dates Dr. Renato Edouard MD Family Provider Active [facility] Primary Care Provider A ctive Team Status: Inactive Member Role Status Dates [facility] Primary Care Provider A ctive Dr. [...] Jimmy Anna MD Attending Provider, Emergency Pr ovid Active Team Status: Inactive Member Role Status Dates No Primary Care Physician Primary Care Provider Active Dr. Neelima Dahl MD Attending Provider Active Loading Unit Operator Powder Charging Relationship Specialty Start Date End Date Neelima Dahl MD [address] [address] PCP - General DRAINAGE INSPECTOR 04/30/22 Loading Unit Operator Powder Charging Relationship Specialty Start Date End Date Neelima Dahl MD [address] [address] PCP - General DRAINAGE INSPECTOR 04/30/22 Loading Unit Operator Powder Charging Relationship Specialty Start Date End Date Neelima Dahl MD [address] [address] PCP - General DRAINAGE INSPECTOR 04/30/22 Loading Unit Operator Powder Charging Relationship Specialty Start Date End Date Neelima Dahl MD [address] [address] PCP - General DRAINAGE INSPECTOR 04/30/22 Loading Unit Operator Powder Charging Relationship Specialty Start Date End Date Neelima Dahl MD [address] [address] PCP - General DRAINAGE INSPECTOR 04/30/22 Loading Unit Operator Powder Charging Relationship Specialty Start Date End Date Neelima Dahl MD [address] [address] PCP - General DRAINAGE INSPECTOR 04/30/22 Loading Unit Operator Powder Charging Relationship Specialty Start Date End Date Neelima Dahl MD [address] [address] PCP - General DRAINAGE INSPECTOR 04/30/22 Loading Unit Operator Powder Charging Relationship Specialty Start Date End Date Neelima Dahl MD [address] [address] PCP - General Foreign Exchange Student Coordinator 04/30/22 Loading Unit Operator Powder Charging Relationship Specialty Start Date End Date Neelima Dahl MD [address] [address] PCP - General Foreign Exchange Student Coordinator 04/30/22 Loading Unit Operator Powder Charging Relationship Specialty Start Date End Date Neelima Dahl MD [address] [address] PCP - General Foreign Exchange Student Coordinator 04/30/22 Loading Unit Operator Powder Charging Relationship Specialty Start Date End Date Jacob Mackenzie [address] [place] [address] PCP - General Family Medicine 05/29/23 Loading Unit Operator Powder Charging Relationship Specialty Start Date End Date Jacob Mackenzie [address] [place] [address] PCP - General Family Medicine 05/29/23 Loading Unit Operator Powder Charging Relationship Specialty Start Date End Date Jacob Mackenzie [address] [place] [address] PCP - General Family Medicine 05/29/23 Loading Unit Operator Powder Charging Relationship Specialty Start Date End Date Rachell Amador APRN-CNP [address] [place] [address] PCP - General Family Medicine 06/18/23 Loading Unit Operator Powder Charging Relationship Specialty Start Date End Date Rachell Amador APRN-CNP [address] [place] [address] PCP - General Family Medicine 06/18/23 Loading Unit Operator Powder Charging Relationship Specialty Start Date End Date Rachell Amador APRN-CNP [address] [place] [address] PCP - General Family Medicine 06/18/23 Loading Unit Operator Powder Charging Relationship Specialty Start Date End Date Rachell Amador APRN-CNP [address] [place] [address] PCP - General Family Medicine 06/18/23 Team Status: Active Member Role Status Dates Dr. Renato Edouard MD Family Provider Active Rachell Amador FLESHING MACHINE OPERATOR, FLESHING MACHINE OPERATOR-C Primary Care Provider Active Team Status: Inactive Member Role Status Dates Rachell Amador FLESHING MACHINE OPERATOR, FLESHING MACHINE OPERATOR-C Primary Care Provider Active Dr. Roger Osman , DO Emergency Provider Active Loading Unit Operator Powder Charging Relationship Specialty Start Date End Date Rachell Amador, STEAM FINISHER.SERVICE LEARNING COORDINATOR [address] [facility], [place] [id number] PCP - General Family Medicine 06/22/23 Loading Unit Operator Powder Charging Relationship Specialty Start Date End Date ViniciusRachell adan, STEAM FINISHER-SERVICE LEARNING COORDINATOR [address] [place] [place] [address] PCP - General Family Medicine 06/18/23 Saturnino Velázquez, [address] [place] [address] Consulting Physician Emergency Medicine 06/24/23 Loading Unit Operator Powder Charging Relationship Specialty Start Date End Date Rachell Amador, STEAM FINISHER.SERVICE LEARNING COORDINATOR [address] [place] [address] PCP - General Family Medicine 06/22/23 Loading Unit Operator Powder Charging Relationship Specialty Start Date End Date Rachell Amador, STEAM FINISHER.SERVICE LEARNING COORDINATOR [address] [facility], [place] [id number] PCP - General Family Medicine 06/22/23 Loading Unit Operator Powder Charging Relationship Specialty Start Date End Date Rachell Amador, STEAM FINISHER-SERVICE LEARNING COORDINATOR [address] [facility] [place] [phone] PCP - General Family Medicine 06/18/23 Saturnino Velázquez, [address] [place] [address] [place] [address] Consulting Physician Emergency Medicine 06/24/23 Loading Unit Operator Powder Charging Relationship Specialty Start Date End Date Rachell Amador APRN.SERVICE LEARNING COORDINATOR [address] [place], [place] [id number] PCP - General Family Medicine 06/22/23 Loading Unit Operator Powder Charging Relationship Specialty Start Date End Date Rachell Amador APRN.SERVICE LEARNING COORDINATOR [address] [place], [place] [id number] PCP - General Family Medicine 06/22/23 Loading Unit Operator Powder Charging Relationship Specialty Start Date End Date Rachell Amador APRN.SERVICE LEARNING COORDINATOR [address] [place], [place] [id number] PCP - General Family Medicine 06/22/23 Loading Unit Operator Powder Charging Relationship Specialty Start Date End Date Rachell Amador APRN-SERVICE LEARNING COORDINATOR [address] [place], [place] [id number] PCP - General Family Medicine 06/18/23 Saturnino Velázquez, [address] [place] [address] [place] [address] Consulting Physician Emergency Medicine 06/24/23 Miki Jaramillo MD [facility] [address] [place] [address] Consulting Physician Hematology and Oncology 07/02/23 Loading Unit Operator Powder Charging Relationship Specialty Start Date End Date Rachell Amador APRN-SERVICE LEARNING COORDINATOR [address] [facility] [place] [phone] PCP - General Family Medicine 06/18/23 Saturnino Velázquez DO [address] [place] [address] [place] [address] Consulting Physician Emergency Medicine 06/24/23 Miki Jaramillo MD [address] [place] [address] Consulting Physician Hematology and Oncology 07/02/23 Loading Unit Operator Powder Charging Relationship Specialty Start Date End Date Rachell Amador APRN-SERVICE LEARNING COORDINATOR [address] [place] [address] PCP - General Family Medicine 06/18/23 Saturnino Velázquez, [address] [place] [address] Department [place] [address] Consulting Physician Emergency Medicine 06/24/23 Miki Jaramillo MD [address] [place] [phone] Consulting Physician Hematology and Oncology 07/02/23 Loading Unit Operator Powder Charging Relationship Specialty Start Date End Date Rachell Amador APRN-SERVICE LEARNING COORDINATOR [address] [place] [address] PCP - General Family Medicine 06/18/23 Saturnino Velázquez, [address] [place] [address] Department Emergency Medicine [place] [phone] Consulting Physician Emergency Medicine 06/24/23 Miki Jaramillo MD [address] [place] [phone] Consulting Physician Hematology and Oncology 07/02/23 Loading Unit Operator Powder Charging Relationship Specialty Start Date End Date Rachell Amador APRN.SERVICE LEARNING COORDINATOR [address] [place] [address] PCP - General Family Medicine 06/22/23 Loading Unit Operator Powder Charging Relationship Specialty Start Date End Date Rachell Amador, STEAM FINISHER.SERVICE LEARNING COORDINATOR [address] [place] [address] PCP - General Family Medicine 06/22/23 Loading Unit Operator Powder Charging Relationship Specialty Start Date End Date Rachell Amador, STEAM FINISHER.SERVICE LEARNING COORDINATOR [address] [place] [address] PCP - General Family Medicine 06/22/23 Loading Unit Operator Powder Charging Relationship Specialty Start Date End Date Rachell Amador, STEAM FINISHER.SERVICE LEARNING COORDINATOR [address] [place] [address] PCP - General Family Medicine 06/22/23 Loading Unit Operator Powder Charging Relationship Specialty Start Date End Date Rachell Amador, STEAM FINISHER.SERVICE LEARNING COORDINATOR [address] [place] [address] PCP - General Family Medicine 06/22/23 Loading Unit Operator Powder Charging Relationship Specialty Start Date End Date Rachell Amador, STEAM FINISHER.SERVICE LEARNING COORDINATOR [address] [place] [address] PCP - General Family Medicine 06/22/23 Loading Unit Operator Powder Charging Relationship Specialty Start Date End Date Rachell Amador, STEAM FINISHER.SERVICE LEARNING COORDINATOR [address] [place] [address] PCP - General Family Medicine 06/22/23 Loading Unit Operator Powder Charging Relationship Specialty Start Date End Date Rachell Amador, STEAM FINISHER.SERVICE LEARNING COORDINATOR [address] [place] [address] PCP - General Family Medicine 06/22/23 Loading Unit Operator Powder Charging Relationship Specialty Start Date End Date Rachell Amador, STEAM FINISHER.SERVICE LEARNING COORDINATOR [address] [place] [address] PCP - General Family Medicine 06/22/23 Loading Unit Operator Powder Charging Relationship Specialty Start Date End Date Rachell Amador, STEAM FINISHER.SERVICE LEARNING COORDINATOR [address] [place] [address] PCP - General Family Medicine 06/22/23 Loading Unit Operator Powder Charging Relationship Specialty Start Date End Date Rachell Amador, STEAM FINISHER.SERVICE LEARNING COORDINATOR [address] [place] [address] PCP - General Family Medicine 06/22/23 Loading Unit Operator Powder Charging Relationship Specialty Start Date End Date Rachell Amador, STEAM FINISHER.SERVICE LEARNING COORDINATOR [address] [place] [address] PCP - General Family Medicine 06/22/23 Loading Unit Operator Powder Charging Relationship Specialty Start Date End Date Rachell Amador, STEAM FINISHER.SERVICE LEARNING COORDINATOR [address] [place] [address] PCP - General Family Medicine 06/22/23 Loading Unit Operator Powder Charging Relationship Specialty Start Date End Date Rachell Amador, STEAM FINISHER.SERVICE LEARNING COORDINATOR [address] [place] [address] PCP - General Family Medicine 06/22/23 Loading Unit Operator Powder Charging Relationship Specialty Start Date End Date Rachell Amador, STEAM FINISHER.SERVICE LEARNING COORDINATOR [address] [place] [address] PCP - General Family Medicine 06/22/23 Loading Unit Operator Powder Charging Relationship Specialty Start Date End Date Queden, Rachell A, STEAM FINISHER.SERVICE LEARNING COORDINATOR [address] [place] [address] PCP - General Family Medicine 06/22/23 Loading Unit Operator Powder Charging Relationship Specialty Start Date End Date Rachell Amador, STEAM FINISHER.SERVICE LEARNING COORDINATOR [address] [place] [address] PCP - General Family Medicine 06/22/23 Loading Unit Operator Powder Charging Relationship Specialty Start Date End Date Rachell Amador, STEAM FINISHER.SERVICE LEARNING COORDINATOR [address] [place] [address] PCP - General Family Medicine 06/22/23 Loading Unit Operator Powder Charging Relationship Specialty Start Date End Date Rachell Amador, STEAM FINISHER.SERVICE LEARNING COORDINATOR [address] [place] [address] PCP - General Family Medicine 06/22/23 Loading Unit Operator Powder Charging Relationship Specialty Start Date End Date Rachell Amador, STEAM FINISHER.SERVICE LEARNING COORDINATOR [address] [place] [address] PCP - General Family Medicine 06/22/23 Loading Unit Operator Powder Charging Relationship Specialty Start Date End Date Rachell Amador, STEAM FINISHER.SERVICE LEARNING COORDINATOR [address] [place] [address] PCP - General Family Medicine 06/22/23 Loading Unit Operator Powder Charging Relationship Specialty Start Date End Date Rachell Amador, STEAM FINISHER-SERVICE LEARNING COORDINATOR [address] [place] [address] PCP - General Family Medicine 06/18/23 Saturnino Velázquez DO [address] Department [place] [address] Consulting Physician Emergency Medicine 06/24/23 Miki Jaramillo MD [address] [place] [phone] Consulting Physician Hematology and Oncology 07/02/23 Loading Unit Operator Powder Charging Relationship Specialty Start Date End Date Rachell Amador APRN.SERVICE LEARNING COORDINATOR [address] [place] [address] PCP - General Family Medicine 06/22/23 Loading Unit Operator Powder Charging Relationship Specialty Start Date End Date Rachell Amador APRN-SERVICE LEARNING COORDINATOR [address] [place] [address] PCP - General Family Medicine 06/18/23 Saturnino Velázquez, [address] [place] [address] Consulting Physician Emergency Medicine 06/24/23 Miki Jaramillo MD [address] [place] [phone] Consulting Physician Hematology and Oncology 07/02/23 Loading Unit Operator Powder Charging Relationship Specialty Start Date End Date Rachell Amador APRN-SERVICE LEARNING COORDINATOR [address] [place] [address] PCP - General Family Medicine 06/18/23 Saturnino Velázquez, [address] [place] [id number] Consulting Physician Emergency Medicine 06/24/23 Miki Jaramillo MD [address] [place] [address] Consulting Physician Hematology and Oncology 07/02/23 Loading Unit Operator Powder Charging Relationship Specialty Start Date End Date Rachell Amador APRN-SERVICE LEARNING COORDINATOR [address] [place] [address] PCP - General Family Medicine 06/18/23 Saturnino Velázquez DO [address] [place] [address] Department [place] [address] Consulting Physician Emergency Medicine 06/24/23 Miki Jaramillo MD [address] [place] [address] Consulting Physician Hematology and Oncology 07/02/23 Ramiro Hugo MD [address] [place] [address] Consulting Physician Cardiology 01/27/24 Loading Unit Operator Powder Charging Relationship Specialty Start Date End Date Rachell Amador APRN-SERVICE LEARNING COORDINATOR [address] [place] [address] PCP - General Family Medicine 06/18/23 Saturnino Velázquez DO [address] [place] [address] Department [place] [address] Consulting Physician Emergency Medicine 06/24/23 Miki Jaramillo MD [address] [place] [address] Consulting Physician Hematology and Oncology 07/02/23 Ramiro Hugo MD [address] [place], [place] [id number] Consulting Physician Cardiology 01/27/24 Loading Unit Operator Powder Charging Relationship Specialty Start Date End Date Rachell Amador, STEAM FINISHER.SERVICE LEARNING COORDINATOR [address] [place] [address] PCP - General Family Medicine 06/22/23 Loading Unit Operator Powder Charging Relationship Specialty Start Date End Date Rachell Amador, STEAM FINISHER.SERVICE LEARNING COORDINATOR [address] [place] [address] PCP - General Family Medicine 06/22/23 Loading Unit Operator Powder Charging Relationship Specialty Start Date End Date Rachell Amador, STEAM FINISHER.SERVICE LEARNING COORDINATOR [address] [place] [address] PCP - General Family Medicine 06/22/23 Loading Unit Operator Powder Charging Relationship Specialty Start Date End Date Rachell Amador, STEAM FINISHER.SERVICE LEARNING COORDINATOR [address] [place] [address] PCP - General Family Medicine 06/22/23 Loading Unit Operator Powder Charging Relationship Specialty Start Date End Date Rachell Amador, STEAM FINISHER.SERVICE LEARNING COORDINATOR [address] [place] [address] PCP - General Family Medicine 06/22/23 Loading Unit Operator Powder Charging Relationship Specialty Start Date End Date Rachell Amador, STEAM FINISHER.SERVICE LEARNING COORDINATOR [address] [place] [address] PCP - General Family Medicine 06/22/23 Loading Unit Operator Powder Charging Relationship Specialty Start Date End Date Rachell Amador, STEAM FINISHER.SERVICE LEARNING COORDINATOR [address] [place] [address] PCP - General Family Medicine 06/22/23 Loading Unit Operator Powder Charging Relationship Specialty Start Date End Date Rachell Amador, STEAM FINISHER.SERVICE LEARNING COORDINATOR [address] [place] [place] [address] PCP - General Family Medicine 06/22/23 Loading Unit Operator Powder Charging Relationship Specialty Start Date End Date Rachell Amador, STEAM FINISHER.SERVICE LEARNING COORDINATOR [address] [place] [place] [address] PCP - General Family Medicine 06/22/23 Loading Unit Operator Powder Charging Relationship Specialty Start Date End Date Rachell Amador, STEAM FINISHER.SERVICE LEARNING COORDINATOR [address] [facility] [place] [address] PCP - General Family Medicine 06/22/23 Loading Unit Operator Powder Charging Relationship Specialty Start Date End Date Rachell Amador, STEAM FINISHER.SERVICE LEARNING COORDINATOR [address] [place] [place] [address] PCP - General Family Medicine 06/22/23 Loading Unit Operator Powder Charging Relationship Specialty Start Date End Date Rachell Amador, STEAM FINISHER-SERVICE LEARNING COORDINATOR [address] [place] [place] [address] PCP - General Family Medicine 06/18/23 Saturnino Velázquez DO [address] [place] [address] Department [place] [address] Consulting Physician Emergency Medicine 06/24/23 Miki Jaramillo MD [facility] [address] [facility] [address] [place] [address] Consulting Physician Hematology and Oncology 07/02/23 Ramiro Hugo MD [address] [facility] [address] [place] [address] Consulting Physician Cardiology 01/27/24 Team Status: Inactive Member Role Status Dates Rachell Amador FLESHING MACHINE OPERATOR, FLESHING MACHINE OPERATOR-C Primary Care Provider Active Start: August 03, 2024 End: August 03, 2024 Dr. Prabhu Ortez MD Attending Provider Active Start: August 03, 2024 End: August 03, 2024 Dr. Prabhu Ortez MD Referring Provider Active Start: August 03, 2024 End: August 03, 2024 Loading Unit Operator Powder Charging Relationship Specialty Start Date End Date Rachell Amador, STEAM FINISHER.SERVICE LEARNING COORDINATOR [address] [place], [place] [id number] PCP - General Family Medicine 06/22/23 Loading Unit Operator Powder Charging Relationship Specialty Start Date End Date Rachell Amador, STEAM FINISHER.SERVICE LEARNING COORDINATOR [address] [facility] [place] [address] PCP - General Family Medicine 06/22/23 Loading Unit Operator Powder Charging Relationship Specialty Start Date End Date Rachell Amador, STEAM FINISHER.SERVICE LEARNING COORDINATOR [address] [place] [address] PCP - General Family Medicine 06/22/23 Loading Unit Operator Powder Charging Relationship Specialty Start Date End Date Rachell Amador, STEAM FINISHER.SERVICE LEARNING COORDINATOR [address] [place] [address] PCP - General Family Medicine 06/22/23 Loading Unit Operator Powder Charging Relationship Specialty Start Date End Date Rachell Amador, STEAM FINISHER.SERVICE LEARNING COORDINATOR [address] [place] [address] PCP - General Family Medicine 06/22/23 Loading Unit Operator Powder Charging Relationship Specialty Start Date End Date Rachell Amador, STEAM FINISHER.SERVICE LEARNING COORDINATOR [address] [place] [address] PCP - General Family Medicine 06/22/23 Loading Unit Operator Powder Charging Relationship Specialty Start Date End Date Rachell Amador, STEAM FINISHER.SERVICE LEARNING COORDINATOR [address] [facility] [place] [address] PCP - General Family Medicine 06/22/23 Loading Unit Operator Powder Charging Relationship Specialty Start Date End Date Rachell Amador, STEAM FINISHER.SERVICE LEARNING COORDINATOR [address] [facility], [place] [id number] PCP - General Family Medicine 06/22/23 Loading Unit Operator Powder Charging Relationship Specialty Start Date End Date Rachell Amador, STEAM FINISHER.SERVICE LEARNING COORDINATOR [address] [facility], [place] [id number] PCP - General Family Medicine 06/22/23 Loading Unit Operator Powder Charging Relationship Specialty Start Date End Date Rachell mAador, STEAM FINISHER.SERVICE LEARNING COORDINATOR [address] [facility], [place] [id number] PCP - General Family Medicine 06/22/23 Team Status: Active Member Role/Relationship Status Dates Rachell Amador FLESHING MACHINE OPERATOR, FLESHING MACHINE OPERATOR-C Primary Care Provider Active Team Status: Inactive Member Role/Relationship Status Dates Rachell Amador FLESHING MACHINE OPERATOR, FLESHING MACHINE OPERATOR-C Primary Care Provider Active Start: August 03, 2024 End: August 03, 2024 Dr. Prabhu Ortez MD Attending Provider Active Start: August 03, 2024 End: August 03, 2024 Dr. Prabhu Ortez MD Referring Provider Active Start: August 03, 2024 End: August 03, 2024 Team Status: Inactive Member Role/Relationship Status Dates Rachell Amador FLESHING MACHINE OPERATOR, FLESHING MACHINE OPERATOR-C Primary Care Provider Active Start: September 07, 2024 End: September 08, 2024 Dr. Yamila Ballard MD Attending Provider Active Start: September 07, 2024 End: September 08, 2024 Loading Unit Operator Powder Charging Relationship Specialty Start Date End Date Rachell Amador APRN.SERVICE LEARNING COORDINATOR [address] [place] [address] PCP - General Family Medicine 06/22/23 Loading Unit Operator Powder Charging Relationship Specialty Start Date End Date Rachell Amador STEAM FINISHER.SERVICE LEARNING COORDINATOR [address] [place] [address] PCP - General Family Medicine 06/22/23 Team Status: Inactive Member Role/Relationship Status Dates Rachell Amador FLESHING MACHINE OPERATOR, FLESHING MACHINE OPERATOR-C Primary Care Provider Active Start: September 09, 2024 End: September 09, 2024 Jaquelin Hi CNM Attending Provider Active art: September 09, 2024 End: September 09, 2024 Jaquelin Hi CNM Referring Provider Active art: September 09, 2024 End: September 09, 2024 Loading Unit Operator Powder Charging Relationship Specialty Start Date End Date Rachell Amador STEAM FINISHER.SERVICE LEARNING COORDINATOR [address] [place] [address] PCP - General Family Medicine 06/22/23 Scheduled [...] Indication (Select all that apply): Surgical Prophylaxis 912 (New Bag - Prov ider: Ariana Nuno [...] mg/mL) injection (CANCELED) As needed, Starting on e 06/17/23 at 1033, Intraprocedure 1033 (Given - Provid [...] Fri06/18/23 at 1715, For 1 dose 1725 (Given - Provid er: Moriah Valente RN) [...] gastric irritation. Do not crush or chew. 180 (Given - Provid er: Moriah Valente RN) sodium chloride 0.9 % bolus 1,000 mL (COMPLETED) 1,000 mL, intravenous, at 999 mL/hr, Administer over 1 Hours, Once, On Fri06/18/23 at 1715, For 1 dose 172 (New Bag - Prov ider: Moriah Valente RN)180 (Stopped - Provider: Moriah Valente RN) Scheduled [...] Nayely Padgett RN)1458 (New Bag - Provider: Warren Thomason RN)1558 (Due: Stopped - Provider: Warren Thomason RN) famotidine PF (Pepcid) injection 20 mg 20 mg, intravenous, Every 12 hours scheduled, First dose on Fri06/20/23 at 0230 0316 (Given - Provid er: Nayely Padgett RN)1131 (Given - Provider: Warren Thomason RN)2099 (Due) gabapentin (Neurontin) capsule 300 mg 300 [...] 06/19/23 at 1700, For 1 dose 1723 (New Bag - Provider: Marco Lazo RN)1841 (Stopped - Provider: Marco Lazo RN) Ay-66m-jilkkznzjx (Choletec) injection 6 millicurie (COMPLETED) 6 millicurie, [...] Nayely Padgett RN)0700 (Given - Provider: Nayely Padgett RN) ondansetron (Zofran) injection 4 mg(Linked Group [...] dose 0917 (Given - Provid er: Agata Dorado) Scheduled Medication Order 06/22/2023 06/23/2023 06/24/2023 iohexol (OMNIPaque) 350 mg iodine/mL solution 68 mL (COMPLETED) 68 mL, intravenous, Once in imaging, Starting on Tu06/24/23 at 2009, For 1 dose 195 (Given - Provid er: Tylor Nolan) morphine [...] Preprocedure 0750 (New Bag - Prov ider: Laura Diaz APRN-PARKING SUPERVISOR)1135 (Stopped - Provider: Laura Diaz APRN-JOSE GUADALUPE) PRN Medication Order 10/01/2023 10/02/2023 10/03/2023 albuterol [...] Dakota Barajas RN - Comment: KVO 7 kenyan sheath RFV)1116 (Stopped - Provider: Jimmy Black RN) heparin PF 1,000 units in sodium chloride 0.9% 500 mL (2 unit/mL) flush infusion (CANCELED) Continuous PRN, Starting on Fri10/03/23 at 0836, Intraprocedure 0836 (New Bag - Prov ider: Dakota Barajas RN - Comment: KVO 8 kenyan sheath RFV)1116 (Stopped - Provider: Jimmy Black, KELLI) hydrALAZINE (Apresoline) injection 10 mg 10 mg, [...] Jimmy Black RN - Comment: for arrythmia induction)09 (Stopped - Provider: Jimmy Black RN) labetaloL (Normodyne,Trandate) injection 10 mg 10 [...] Dakota Barajas RN - Comment: KVO 7 kenyan sheath LFV)0837 (Rate/Dose Change - Provider: Jimmy Black RN - Comment: KVO/medications 7 kenyan shearh LFV)1116 (Stopped - Provider: Jimmy Black [...] RN)1234 (Stopped - Provider: Erin Harman RN) Scheduled Medication Order 09/07/2024 09/08/2024 09/09/2024 Acetaminophen (TYLENOL) tablet 650 mg 650 mg, Oral, ONCE, 1 dose, On Fri09/09/24 at 2114 2114 (Canceled Entry - Provider: System Discharge - Comment: Automatically canceled at discontinue of medication order) betamethasone acetate (CELESTONE) injection 12 mg 12 mg, Intramuscular, EVERY 24 HOURS, 2 doses, First dose on Fri09/09/24 at 2114, Last dose on Fri09/10/24 at 2114 2128 (Given - Provid er: Candy Chou RN) hydrOXYzine pamoate (VISTARIL) capsule 25 mg (COMPLETED) 25 mg, Oral, ONCE, 1 dose, On Fri09/09/24 at 2245 222 (Given - Provid er: Candy Chou RN) Lactated ringers IV solution 1,000 mL (COMPLETED) 1,000 mL, Intravenous, ONCE, 1 dose, On Fri09/09/24 at 2114 2049 ($$New Bag$$ - Provider: Candy Chou RN)2200 (Stopped - Provider: Candy Chou RN) NIFEdipine (PROCARDIA) capsule 10 mg (COMPLETED) 10 mg, Oral, ONCE, 1 dose, On Fri09/09/24 at 2114 2129 (Given - Provid er: Candy Chou RN) Nitrofurantoin (macrocrystal-monohydrate) (MACROBID) capsule 100 mg (COMPLETED) 100 mg, Oral, ONCE, 1 dose, On Fri09/09/24 at 2245 2229 (Given - Provid er: Candy Chou RN) FOR RECORDS PERTAINING TO PATIENTS WHO [...] BE BASED ON THE PRIMARY CLINICAL RECORDS. [facility]. provides no warranty or guarantee of the accuracy or completeness of information in this document.
[2024-09-19 12:53] VITALS: TEMP 36.5
[2024-09-19 12:54] VITALS: BP 130/75; PULSE 93
[2024-09-19 12:55] VITALS: RESP 16; TEMP 36.7
[2024-09-19 12:56] VITALS: TEMP 36.7
[2024-09-19 13:30] LABS: ROM Internal Control Test YES-OK TO RESULT pt. (Internal QC); ROM Patient Test Negative (Negative); Record Kit Lot#, ROM+ K3358
--- NOTE | 2024-09-19 13:30 | OB.TRI.NOTE ---
HPI - General HPI Narrative KEAGAN ALICIA, is a 23 F who presents at 36 weeks. States leakage of fluid at 0400 and underwear wet throughout the day. Intermittent non painful contractions. Maternal Data Information LUZ Calculator Estimated Delivery Date Method Current WG Current Estimate 10/13/24 Manual 36w 4d PFSH PFSH Medical History (Updated 09/19/24 @ 13:40 by Jaquelin Galindo CNM) Pulmonary embolism Anxiety depression Depression Home Medications ?Medication ?Instructions ?Recorded ?Last Taken ?Type vit no.95-ferrous 1 tab PO DAILY 11/12/22 09/08/24 07:00 History fumarate 28 mg-folic acid 800 mcg 1 TAB tablet () aspirin 81 mg capsule 81 mg PO DAILY 09/08/24 09/08/24 07:00 History 81 mg metoprolol succinate 25 mg 25 mg PO BID SVT 09/08/24 09/08/24 20:00 History tablet,extended release 24 hr 25 mg Allergy/AdvReac Type Severity Reaction Status Date / Time latex AdvReac Mild Itching Verified 09/19/24 12:47 Family History Father Drug abuse Surgical History (Updated 07/02/23 @ 00:03 by Cricket Villarreal) Hx of cholecystectomy History of tonsillectomy and adenoidectomy Social History (Updated 06/24/23 @ 12:[address] Fabián Bob MD) household members: children Smoking Status: Current every day smoker tobacco type: e-cigarettes History Elective abortions Hx Para 1 Spontaneous abortions Hx # Term Pregnancies Ectopic pregnancies Hx # Pregnancies Multiple births # of living children Physical Exam Manual OB Exam: presentation cephalic, dilated 2cm, effaced 50%, station -2 and other no gross fluid and can palpate bag of water. NST FHR Rate Baby A Baseline: 145 Variability:: Moderate Accelerations:: 15 x 15 Decelerations:: None NST Reactive:: Yes Uterine Activity:: Irregular, mild Assessment & Plan (1) Vaginal discharge: (2) 36 weeks gestation of : PLAN: Plan 1) ROM plus negative and no gross rupture 2) Reactive NST 3) D/C home
== END 2024-09-19 13:44 | disposition home or self-care (01) ==
LOC: WPOUT 12:40 → WP 12:41
PROVIDERS: PCP Nurse Practitioner Family; Visit Provider Advanced Practice Midwife
DX: O99.891 Other specified diseases and conditions complicating pregnancy (principal); N89.8 Other specified noninflammatory disorders of vagina; O99.333 Smoking (tobacco) complicating pregnancy, third trimester; F17.290 Nicotine dependence, other tobacco product, uncomplicated; Z79.82 Long term (current) use of aspirin; Z3A.36 36 weeks gestation of pregnancy; Z86.711 Personal history of pulmonary embolism; Z86.59 Personal history of other mental and behavioral disorders
CPT/HCPCS: 84112; 99221; G0378

== ENCOUNTER 2024-10-07 00:32 | Inpatient (IN) | payer MEDICAID, SELFPAY ==
--- NOTE | 2024-09-22 14:32 | HP.PCM_ITS ---
History and Physical Date of Admission: 10/07/24 HPI: The patient is a 24 year old female presenting for pre-operative visit. She is scheduled for and tubal sterilization for h/o shoulder dysotocia, LGA fetus on 10/07/24. Procedure discussed along with risks, benefits and complications. Other alternatives discussed for management. Consent form signed? Yes. ? ? PAST MEDICAL HISTORY PAST MEDICAL HISTORYDiagnosisDate?Anemia??Chronic tonsillitis??Fontppvlep62/29/2017?Gall stone07/2022?cholecystectomy after delivery?GERD (gastroesophageal reflux disease)??H/O shoulder dystocia in prior , currently ([facility])12/14/22?Hemorrhoids??History of back problems??History of depression??History of shoulder dystocia in prior pregnancy03/10/2024?Kidney stones??Paroxysmal SVT (supraventricular tachycardia) ([facility])??Postoperative pulmonary embolism ([facility])06/2023?Psychiatric disorder??depression, anxiety and PTSD ? ? PAST SURGICAL HISTORY PAST SURGICAL HISTORYProcedureLateralityDate?CHOLECYSTECTOMY HX?06/17/2023? [facility]?IUD REMOVAL?09/15/2023?PT ED HEART AND VASCULAR?10/03/2023?TONSILLECTOMY HX? CURRENT MEDICATIONS Current Outpatient MedicationsMedicationSigDispenseRefill?metoprolol tartrate, short acting, (LOPRESSOR) 25 mg tabletTake 25 mg by mouth two times a day.???Omeprazole Magnesium (PRILOSEC OTC) 20 mg tabletTake 1 tablet by mouth two times a day as needed (heartburn).60 tablet3?aspirin, enteric coated (ECOTRIN LOW STRENGTH) 81 mg EC tabletTake 1 tablet by mouth once daily.90 tablet3?folic acid 1 mg tabletTake 1 tablet by mouth once daily.30 tablet1?ondansetron (ZOFRAN) 4 mg tabletTake 1 tablet by mouth every 6 hours as needed for nausea/vomiting.120 tablet1?No current facility-administered medications for this visit. ? ? ALLERGIES: Latex ? PERSONAL HISTORY: [SOCIAL HISTORY] [SOCIAL HISTORY] Social History Tobacco Use ? Smoking status: Never ? ? Passive exposure: Yes ? Smokeless tobacco: Never ? Tobacco comments: ? ? Vapes Vaping Use ? Vaping status: Every Day ? Substances: Nicotine, Flavoring ? Devices: Disposable Substance Use Topics ? Alcohol use: Not Currently ? Drug use: Not Currently ? ? Frequency: 2.0 times per week ? ? Types: Marijuana ? ? Comment: smoking ? FAMILY HISTORY: FAMILY HISTORY FAMILY HISTORY ProblemRelationAge of Onset?other (migraines)Mother??NoneFather??Ovarian cancerMaternal Grandmother??Anesthesia ProblemsNo Family History? ? ? REVIEW OF SYMPTOMS: GENERAL: denies fevers or chills ENDOCRINOLOGY: has not been on steroids Cardiology : denies palpitations or chest pain Respiratory: denies SOB or cough Hematology: denies history of prolonged bleeding or easy bruising or VTE Allergy: Denies history of personal or family history of allergy to anesthesia ? PHYSICAL EXAMINATION: ? VITALS: Blood pressure 108/74, weight 88 kg (194 lb), last menstrual period 01/07/2024, not currently . ? GENERAL: The patient is well nourished, well hydrated in no acute distress. , The patient is oriented to time, place, and person. NECK: Supple. No lynphadenopathy, normal thyroid, no thyromegaly. LUNGS: Clear to auscultation bilaterally. no wheezes, rhonchi or rales HEART: Regular rate and rhythm, Normal heart sounds, and No murmurs or gallops abd- soft, nontender, gravid ext trace edema ? ? IMPRESSION: Estimated Date of Delivery: 10/13/24 ? PLAN: The risks/benefits/alternatives and personal involved for the planned c- s and sterilization were reviewed with the patient. Her questions were answered to her satisfaction and she desires to proceed. Consent was signed. I reviewed with her postop instructions and expectations. Risks, benefits and alternatives to sterilization have been discussed with the patient. She declines reversible options including LARC. She understands sterilization is permanent, irreversible, risks of failure, regret and ectopic. In addition she understands there are surgical risks as well. Her questions were answered to her satisfaction and consent was signed. ? I have reviewed and updated past medical and surgical history, medications and allergies Assessment & Plan Assessment/Plan (1) High risk multigravida in third trimester: (2) Shoulder dystocia, antepartum: (3) LGA (large for gestational age) fetus affecting management of mother: (4) Sterilization:
[2024-10-07] VITALS (18 sets, daily range): BP systolic 118–148; BP diastolic 50–92; PULSE 64–98; RESP 14–20; TEMP 35.8–36.9; O2SAT 95–100; BMI 35.1
[2024-10-07] MEDS: Lactated Ringers 1,000 ML 999 ML IV (00:28)
--- OUTSIDE RECORDS SUMMARY | 2024-10-07 00:32 | XMS RPT_ITS | CCD ---
Author Organization [facility] Care Team Providers Care Medical Observer Name Role Phone Ruben, Mulat Patty Unavailable Unavailable Ruben, Jessica Patty Unavailable Unavailable NOEL, KRISTEL J Unavailable Unavailable NOEL, KRISTEL J Unavailable Unavailable NOEL, KRISTEL J Unavailable Unavailable NOEL, KRISTEL J Unavailable Unavailable NOEL, KRISTEL J Unavailable Unavailable NOEL, KRISTEL J Unavailable Unavailable NOEL, KRISTEL J Unavailable Unavailable NOEL, KRISTEL J Unavailable Unavailable NOEL, KRISTEL J Unavailable Unavailable NOEL, KRISTEL J Unavailable Unavailable SHEILA COBURN Unavailable Unavailable NOEL, KRISTEL J Unavailable [...] Provider Unavailabl e Unavailable [facility] Dr. Jimmy Sepulveda Attending Provider ZIA JOHNSON Referring Provider Mauricio Reyes Unavailable Unavailable Mauricio Reyes Attending Unavailable Neelima Dahl MD Primary Care Provider [phone] Unavailable Primary Care Provider [facility] Jacob Mackenzie DO Primary Care Provider Queden BOND TRADER-BLOOD TESTER FOWL, Rachell Yoana Primary Care Provid er Queden BOND TRADER.BLOOD TESTER FOWL, Rachell A Primary Care Provider Saturnino Velázquez DO Unavailable [phone] Miki Jaramillo MD Unavailable DIPTI FREED Attending [...] Unavailable QUEDEN, RACHELL YOANA Primary Care Unavailable ELVIS DRAPERLIZANICORE Admitting Unavailable EL NICO DE JESUSRE Attending Unavailable CRISTOY, ALLA Consulting Unavailable QUEDEN, RACHELL YOANA Primary Care Unavailable SATURNINO VELÁZQUEZ Attending Unavailable SATURNINO VELÁZQUEZ Referring Unavailable QUEDEN, RACHELL YOANA Primary Care Unavailable QUEDEN, RACHELL YOANA Primary Care Unavailable MIKI JARAMILLO Attending Unavailable MELANIA, SATURNINO Isaac Referring Unavailable QUEDEN, RACHELL YOANA Primary Care Unavailable FERNANDES NORIEGA, YULANKA S Referring Unav ailable QUEDEN, RACHELL YOANA Primary Care Unavailable FERNANDES NORIEGA, YULANKA S Referring Unav ailable QUEDEN, RACHELL YOANA Primary Care Unavailable QUEDEN, RACHELL YOANA Primary Care Unavailable Saturnino Velázquez DO Unavailable [phone] Miki Jaramillo MD Unavailable Ramiro Hugo MD Unavailable Queden BIOMETRICS SPECIALIST-C, Rachell Primary Care Provider Neelima MAN, Dr. [...] Unavailable Elio MAN, Dr. Driscoll Attending Provider [phone] Jaquelin Hi CNM Attending Provider [phone] Jaquelin Hi CNM Referring Provider [phone] Unavailable Primary Care Provider Unavailabl e NO, PHYSICIAN Primary Care Unavailable JULIANE DARBY Attending Unavailable JULIANE DARBY Admitting Unavailable ROBIN, RIO Referring Unavailable ROBIN, RIO Attending Unavailable ROBIN, RIO Admitting Unavailable QUEDEN, RACHELL A Primary Care Unavailable HI, JAQUELIN Attending Unavailable QUEDEN, RACHELL A Primary Care Unavailable HI, JAQUELIN Referring Unavailable QUEDEN, RACHELL A Primary Care Unavailable PRABHU ORTEZ Attending Unavailable QUEDEN, RACHELL A Primary Care Unavailable CONOR DUARTE Referring Unavailable FAIZA MISHRA Attending Unavailable QUEDEN, RACHELL A Primary Care Unavailable QUEDEN, RACHELL A Primary Care Unavailable HI, JAQUELIN Referring Unavailable QUEDEN, RACHELL A Primary Care Unavailable HI, JAQUELIN Referring Unavailable QUEDEN, RACHELL A Primary Care Unavailable IH, JAQUELIN Referring Unavailable HI, JAQUELIN Attending Unavailable QUEDEN, RACHELL A Primary Care Unavailable NEELIMA KARMON Referring Unavailable YAMILA BALLARD L Attending Unavailable QUEDEN, RACHELL A Primary Care Unavailable PRABHU ORTEZ Referring Unavailable JASMYN BALLARDECCA L Attending Unavailable QUEDEN, RACHELL A Primary Care Unavailable QUEDEN, RACHELL A Primary Care Unavailable SANDRA COLE Attending Unavailable QUEDEN, RACHELL A Primary Care Unavailable HI, JAQUELIN Attending Unavailable QUEDEN, RACHELL A Primary Care Unavailable KADICHIJOANA MartinA Attending Unavailable QUEDEN, RACHELL A Primary Care Unavailable PRABHU ORTEZ Attending Unavailable QUEDEN, RACHELL A Primary Care Unavailable GINO VALERO Attending Unavailable QUEDEN, RACHELL A Primary Care Unavailable HI, JAQUELIN Attending Unavailable QUEDEN, RACHELL A Primary Care Unavailable LOUISE NAYELY Attending Unavailable BARBI TIAN Attending Unavailable QUEDEN, RACHELL A Primary Care Unavailable QUEDEN, RACHELL A Primary Care Unavailable ELIO YAMILA L Attending Unavailable QUEDEN, RACHELL A Primary Care Unavailable HI, JAQUELIN Attending Unavailable QUEDEN, RACHELL A Primary Care Unavailable HI, JAQUELIN Attending Unavailable QUEDEN, RACHELL A Primary Care Unavailable HI, JAQUELIN Attending Unavailable QUEDEN, RACHELL A Primary Care Unavailable HI, JAQUELIN Referring Unavailable Queden BIOMETRICS SPECIALIST, Rachell Primary Care Unavailable Prabhu Ortez Attending Unavailable Prabhu Ortez Referring Unavailable Elio Yamila Admitting Unavailable Elio Yamila Attending Unavailable Elio, Yamila Referring Unavailable Queden BIOMETRICS SPECIALIST, Rachell Primary Care Unavailable Yamila Ballard Attending Unavailable Tatum BIOMETRICS SPECIALIST, Rachell Primary Care Unavailable Jaquelin Hi Attending Unavailable Jaquelin Hi Referring Unavailable Tatum BIOMETRICS SPECIALIST, Rachell Primary Care Unavailable Jaquelin Hi Attending Unavailable Tatum BIOMETRICS SPECIALIST, Rachell Primary Care Unavailable Allergies Allergy Classification Reported Allergen(s) Allergy Type Date of Onset Reaction(s) Facility Latex (3 sources) Latex Substance Allergy 4 Itching [facility] (20 sources) Latex; 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: [LATEX] Drug Allergy [address] [facility] (1 source) Latex Propensity to adverse reactions to drug 4 Itching [facility] (1 source) Latex Drug allergy (disorder) 5 [facility] Repository Medications Current Medications Medication Drug [...] 1,000 mL, Intravenous, ONCE, 1 dose, On Kimmy 09/09/24 at 2115 Start: 10-03-2023 take 100 mL [...] first trimester of ([facility]) Take 1 capsule (500 mg) by mouth [...] 500 mg capsule Indications: SVT (supraventricular tachycardia) ([facility]) , Palpitations Take 1 capsule (500 mg) [...] above: Take 100 mg by mouth . 0.4 ml enoxaparin sodium 100 mg/ml prefilled syringe (5 sources) Low Molecular Weight Heparin Start: 10-07-2024 End: 12-06-2024 inject 0.4 mL by subcutaneous injection once daily enoxaparin (LOVENOX) 40 mg/0.4 mL Indications: Supervision of high risk in third trimester (HCC) , History of pulmonary embolism , History of shoulder dystocia in prior Inject 0.4 mL subcutaneously once daily. Patient should start on October 07, 2024. 30 each 1 10/07/2024 12/06/2024 Active fluconazole 150 mg oral tablet (7 sources) Azole Antifungal Start: 09-23-2024 End: 09-23-2024 take 1 tablet by mouth once fluconazole (DIFLUCAN) 150 mg tablet Indications: Yeast vaginitis Take 1 tablet by mouth one time only for 1 dose. 1 tablet 09/23/2024 09/23/2024 Active Start: 09-12-2023 End: 09-12-2023 take 1 tablet [...] Active Start: 05-01-2017 take 1 capsule by mo [facility] once daily omeprazole [address] [...] first trimester of ([facility]) Dissolve 1 tablet (4 mg) in the [...] minutes. Start: 07-02-2023 take 1 tablet by [facility] every six hours as needed for nausea [...] ) 28 mg iron- 800 mcg tablet (5 sources) Start: 023 Pnv Cmb#95-Ferrous Fumarate-Fa [ [...] gastric irritation. Do not crush or chew. [id number] 6-DHA ORAL (1 source) [id number] 6-DHA ORAL Take by mouth. Active VITAMINS TABLET (1 source) VITAMIN S TABLET ; 1 tab(s) orally once a day Quantity: 0 Refills: 3 Ordered: 12-Jul-2022 Joyce Gonzalez Generic Substitution Allowed Comments: Source=Surescript s, Medication=PRENAT AL VITAMINS TABLET, OriginatingSource =[employer] [place] OriginatingProvid er=BARBI TIAN, Duration=90, Refills=3, Date Last Modified/Filled=1 12-Apr-2022 Comment on above: Source=Surescripts, Medication= VITAMINS TABLET, OriginatingSource=[employer] [place] OriginatingProvider=BARBI TIAN, Duration=90, Refills=3, Date Last [...] 12-Jul-2022 Joyce Gonzalez Generic Substitution Allowed Comments: Source=Surescripts, Medication=PROMETHAZINE 12.5 MG TABLET, OriginatingSource=[employer] [place] OriginatingProvider=JEWEL DAHL, Duration=15, Refills=6, Date Last Modified/Filled=06-Jul-2022 Comment on above: Source=Surescripts, Medication=PROMETHAZINE 12.5 MG TABLET, OriginatingSource=[employer] [place] OriginatingProvider=JEWEL DAHL, Duration=15, Refills=6, Date Last Modified/Filled=06-Jul-2022 [...] Start: 06-21-2023 take 2 tablets by mo ut twice daily, then take 1 tablet by [...] 24 HOURS, 2 doses, First dose on Kimmy 09/09/24 at 2115, Last dose on Fri09/10/24 at [...] Start: 06-03-2017 take 1 tablet by violette once daily ferrous sulfate 325 (65 Fe) [...] Discontinued Start: 10-31-2021 take 1 capsule by mo uth twice daily gabapentin (NEURONTIN) 100 mg capsule Take 100 mg by mouth twice daily. 0 10/31/2021 Active take 1 capsule by mo uth three times daily gabapentin (Neurontin) 300 mg capsule Take 1 capsule (300 mg) by mouth 3 times a day. Active Comment on above: Take 100 mg by mouth twice daily. Take 1 capsule by mo uth daily at bedtime for 30 days. 50 [...] on above: Take 1 tablet by violette every 6 hours as needed for Pain or Fever. iohexol (OMNIPaque) 350 mg iodine/mL solution 68 mL (2 sources) Start: 4 End: 4 68 mL, intravenous, Once in imaging, Starting on Fri06/24/23 at 2009, For 1 dose Start: 06-19-2023 End: 06-19-2023 68 mL, intravenous, Once in imaging, Starting on Kimmy 06/19/23 at 1955, For 1 dose iohexol (OMNIPaque) 350 mg iodine/mL solution 72 mL (1 source) Start: 06-21-2023 End: 06-21-2023 72 mL, intravenous, Once in imaging, Starting on Fri06/21/23 at 0916, For 1 dose 5 ml [...] 180 tablet 1 07/14/2023 09/18/2023 Discontinued levonorgestrel 0.483111 mg/hr intrauterine system (20 sources) Progestin, Progestin-containi [...] injection (DEPO-PROVERA) Start: 01-30-2023 End: 06-03-2023 medroxyPROGESTERone (DEPO-KY OVERA) 150 mg/mL Inject 1 mL intramuscularly [...] 15 mg oral tablet (20 sources) Start: 4 End: 4 take 1 tablet by mouth once daily at bedtime mirtazapine (Remeron) 15 mg tablet Take 1 tablet (15 mg) by mouth once daily at bedtime. 08/07/2023 10/03/2023 Discontinued (Stop Taking at Discharge) nicotine 2 mg oral lozenge (8 sources) Cholinergic Nicotinic Agonist Start: 4 End: 6 Nicotine Polacrilex 2 mg lozenge [...] intravenous, Continuous, Starting on Fri06/20/23 at 0330 [id number] (Choletec) injection 6 millicurie (1 source) Start: [...] once daily. Take 1 capsule by mo ut once daily. take one tablet krystal y [...] 4 08-18-2023 Episodic Contraceptive and procreative management (3 sources) Intrauterine contraceptive device in situ; 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: [Encounter for routine checking of intrauterine contraceptive device] Onset: 5 07-24-2023 Episodic Deficiency and other anemia (2 sources) Iron deficiency anemia, unspecified; 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: [Maternal iron deficiency anemia complicating , third trimester (HCC)] Onset: 5 Episodic Fetopelvic disproportion; obstruction (6 sources) Shoulder girdle dystocia; 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: [Obstructed labor due to shoulder dystocia] Onset: 5 12-17-2022 Episodic Genitourinary symptoms and ill-defined conditions (1 source) Scalding pain on urination ; 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: [Dysuria] Episodic Headache; including migraine (2 sources) Headache; including migraine; 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: [ headache in third trimester (HCC)] Onset: 5 Immunizations and screening for infectious [...] disorder; 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: [Depression] Onset: 7 10-08-2016 Chronic Mycoses (2 sources) Candidiasis of vagina; 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: [Vaginal yeast infection] Onset: 7 Resolved: 8 07-10-2017 Episodic Nausea and vomiting (9 sources) Nausea; 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: [Diarrhea and vomiting] Onset: 7 06-19-2023 Episodic OB-related trauma to perineum and vulva (5 sources) First degree perineal laceration; 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: [First degree perineal laceration during delivery] 12-17-2022 Episodic Other aftercare (1 source) Postoperative visit; 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: [Encounter for other specified surgical aftercare] 07-08-2023 Episodic Other aftercare (1 source) Drug therapy finding; 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: [termite renewal inspector (current) use of anticoagulants] 07-31-2023 Episodic Other aftercare (4 sources) Long-term current use of anticoagulant; 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: [halfway (current) use of anticoagulants] 07-02-2023 Episodic Other [...] , first trimester ([facility])] Onset: 5 Episodic Other complications of (20 sources) High risk ; 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: [Supervision of other high risk pregnancies, first trimester] Onset: 5 03-10-2024 Episodic Other complications of (20 sources) Heartburn; 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: [Other specified related conditions, third trimester] Onset: 5 07-27-2024 Episodic Other complications of (20 sources) Thrombocytopenic disorder; 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: [Other diseases of the blood and blood-forming organs and certain disorders involving the immune mechanism complicating , unspecified trimester] Onset: 5 08-05-2024 Episodic Other complications of (2 sources) Other diseases of the blood and blood-forming organs and certain disorders involving the immune mechanism complicating , unspecified trimester; 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: [Thrombocytopenia affecting (HCC)] Onset: 5 Episodic Other complications of (7 sources) Headache; 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: [Other specified related conditions, unspecified trimester] 08-03-2024 Episodic Other complications of (12 sources) condition affecting obstetrical care of mother; 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: [Maternal care for abnormalities of the heart rate or rhythm, unspecified trimester, not applicable or unspecified] Onset: 5 09-09-2024 Episodic Other complications of (3 sources) Other specified related conditions, third trimester; 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: [ headache in third trimester (HCC)] Onset: 5 Episodic Other complications of (1 source) Supervision of high risk , unspecified, third trimester; 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: [Supervision of high risk in third trimester (HCC)] Onset: 5 Episodic Other complications of (1 source) Maternal care for abnormalities of the heart rate or rhythm, unspecified trimester, not applicable or unspecified; 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: [Abnormality in heart rate or rhythm, antepartum (HCC)] Onset: 5 Episodic Other complications of (1 source) Supervision of other high risk pregnancies, second trimester; 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: [Supervision of other high risk pregnancies, second trimester (HCC)] Onset: 5 Episodic Other complications of (1 source) Supervision of with grand multiparity, third trimester; 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: [Supervision of with grand multiparity, third trimester] Onset: 5 Episodic Other complications of (1 source) Maternal care for excessive growth, unspecified trimester, not applicable or unspecified; 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: [Maternal care for excessive growth, unspecified trimester, not applicable or unspecified] Onset: 5 Episodic Other complications of (1 source) Maternal care for abnormalities of the heart rate or rhythm, third trimester, not applicable or unspecified; 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: [Maternal care for abnormalities of the heart rate or rhythm, third trimester, not applicable or unspecified] Onset: Episodic Other endocrine disorders (1 source) Hypoglycemia; [...] bleeding] Onset: Chronic Other female genital disorders (4 sources) Abnormal vaginal bleeding; 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: [Abnormal uterine and vaginal bleeding, unspecified] 07-02-2023 Chronic Other female genital disorders (7 sources) H/O: premature delivery; 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: [Personal history of pre-term labor] 12-25-2022 Episodic Other female genital disorders (7 sources) Vaginal discharge; 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: [Other specified noninflammatory disorders of vagina] 11-24-2023 Episodic Other female genital disorders (2 sources) Other specified noninflammatory disorders of vagina; 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: [Vaginal discharge during in third trimester (HCC)] Onset: Episodic Other gastrointestinal disorders (1 source) Diarrhea; Translations: [Intestinal malabsorption, unspecified] 10-16-2023 Chronic Other gastrointestinal disorders (1 source) Constipation; Translations: [Constipation, unspecified] 09-18-2023 Episodic Other gastrointestinal disorders (2 sources) Functional diarrhea; Translations: [Functional diarrhea] 09-23-2023 Episodic Other gastrointestinal disorders (1 source) Heartburn; Translations: [Heartburn during , antepartum, third trimester (HCC)] Onset: Episodic Other injuries and conditions due to external causes (1 source) Injury of coccyx; Translations: [Unspecified injury of lower back, initial encounter] 06-03-2023 Episodic Other screening for suspected conditions (not mental disorders or infectious disease) (3 sources) Cancer cervix screening status; Translations: [Encounter for screening for malignant neoplasm of cervix] Onset: 02-03-09-2024 Episodic Polyhydramnios and other problems of amniotic cavity (4 sources) Spontaneous rupture of membranes 12-15-2022 Episodic Residual codes; unclassified (1 source) 16 weeks gestation of ; Translations: [16 weeks gestation of ] Onset: Episodic Residual codes; unclassified (4 sources) Gestation period, 34 weeks; Translations: [34 weeks gestation of ] 11-19-2022 Episodic Residual codes; unclassified (3 sources) Gestation period, 36 weeks; Translations: [36 weeks gestation of ] 12-03-2022 Episodic Residual codes; unclassified (5 sources) Gestation period, 38 weeks; Translations: [38 [...] of ] 09-08-2024 Episodic Residual codes; unclassified (2 sources) Gestation period, 37 weeks; Translations: [37 weeks gestation of ] 2024 Episodic Residual codes; unclassified (1 source) 37 weeks gestation of ; Translations: [37 weeks gestation of (HCC)] Onset: 5 Episodic Residual codes; unclassified (1 source) 36 [...] of ; Translations: [32 weeks gestation of ([facility])] Onset: 5 Episodic Residual codes; unclassified (1 source) 28 weeks gestation of ; Translations: [28 weeks gestation of ([facility])] Onset: 5 Episodic Residual codes; unclassified (1 source) 24 weeks gestation of ; Translations: [24 weeks gestation of ([facility])] Onset: 5 Episodic Spondylosis; intervertebral disc disorders; [...] sources) 3 month f/u Onset: 4 Unclassified (2 sources) Paroxysmal SVT (supraventricular tachycardia) [...] [Viral intestinal infection, unspecified] Onset: 8 Episodic Normal and/or delivery (20 sources) Encounter [...] unspecified; Translations: [Supraventricular tachycardia, unspecified] Onset: 5 Unclassified (2 sources) History of shoulder dystocia 08-24-2024 Urinary tract infections (2 sources) Urinary tract infection, site not specified; Translations: [Urinary tract infectious disease] Onset: 7 Resolved: 8 07-10-2017 Episodic Results Test Name Value Interpretation Reference Range Facil ity CBC W Auto Differential pane l (Bld)on 09-28-2024 Anisocytosis Ql (Bld) Present [facility] Basophils (Bld) [#/Vol] 0.00 10*3/uL [facility] Basophils/100 WBC (Bld) 0.0 % C [facility] Dacrocytes LM Ql (Bld) Few Cl [facility] Differential cell count method Nom (Bld) Manual [facility] Eosinophils (Bld) [#/Vol] 0.08 10*3/uL [facility] Eosinophils/100 WBC (Bld) 1.0 % [facility] Erythrocyte distribution width (RBC) [Ratio] 23.0 % High 11.5 - 15.0 % [facility] Giant platelets LM Ql (Bld) Occasional [facility] Hematocrit (Bld) [Volume fraction] 37.5 % 36.0 - 46.0 % [facility] Hemoglobin (Bld) [Mass/Vol] 12.3 g/dL 11.5 - 15.5 g/dL [facility] Interpretation and review of laboratory results Abnormal [facility] Lymphocytes (Bld) [#/Vol] 1.06 10*3/uL [facility] Lymphocytes/100 WBC (Bld) 14.0 % [facility] MCH (RBC) [Entitic mass] 28.3 pg 26.0 - 34.[address] [facility] MCHC (RBC) [Mass/Vol] 32.8 g/dL 30.5 - 36.0 g/dL [facility] MCV (RBC) [Entitic vol] 86.2 fL 80.0 - 100.[address] [facility] Monocytes (Bld) [#/Vol] 0.61 10*3/uL [facility] Monocytes/100 WBC (Bld) 8.0 % C [facility] Myelo % 2.0 % [facility] Neutrophils (Bld) [#/Vol] 5.70 10*3/uL [facility] Neutrophils/100 WBC (Bld) 75.0 % [facility] Nucleated RBC (Bld) [#/Vol] [facility] Nucleated RBC/100 WBC (Bld) [Ratio] 0.0 % /[address] [facility] Ovalocytes LM Ql (Bld) Few [facility] Platelet mean volume (Bld) [Entitic vol] [facility] Comment on above: Unable to Report. Platelets (Bld) [#/Vol] 102 10*3/uL Low [facility] Platelets Estimate (Bld) [#/Vol] Decreased [facility] Polychromasia LM Ql (Bld) Slight [facility] RBC (Bld) [#/Vol] 4.35 10*6/uL 3.90 - 5.2 0 m/uL [facility] Red Cell Morph Reviewed: see results of individual morphologies [facility] WBC (Bld) [#/Vol] 7.60 10*3/uL [facility] WBC Left Shift Ql (Bld) Present [facility] This is an appended report. These results have been appended to a previously verified report. [facility] Anisocytosis Ql (Bld) Present Normal [facility] Comment on above: Order Comment: Speci men Type: BLOOD SPECIMEN Ordering Facility: [facility] Address: [address] [place], [place] [address] Performed By: #### 5 7021-8 #### [facility] CLIA [id number] [address] [place] [address] [place] Basophils (Bld) [#/Vol] 0.00 10*3/uL Normal <0.11 [facility] Comment on above: Order Comment: Speci men Type: BLOOD SPECIMEN Ordering Facility: [facility] Address: [address] [place] [address] Performed By: #### 5 7021-8 #### [facility] CLIA [id number] [address] [place] [address] [place] Basophils/100 WBC (Bld) 0.0 % Normal [facility] Comment on above: Order Comment: Speci men Type: BLOOD SPECIMEN Ordering Facility: [facility] Address: [address] [place] [address] Performed By: #### 5 7021-8 #### [facility] CLIA [id number] [address] [place] [address] [place] Dacrocytes LM Ql (Bld) Few Normal Cl [facility] Comment on above: Order Comment: Speci men Type: BLOOD SPECIMEN Ordering Facility: [facility] Address: [address] [place] [address] Performed By: #### 5 7021-8 #### [facility] CLIA [id number] [address] [place] [address] [place] Differential cell count method Nom (Bld) Manual Normal [facility] Comment on above: Order Comment: Speci men Type: BLOOD SPECIMEN Ordering Facility: [facility] Address: [address] [place] [address] Performed By: #### 5 7021-8 #### [facility] CLIA [id number] [address] [place] [address] [place] Eosinophils (Bld) [#/Vol] 0.08 10*3/uL Normal <0.46 [facility] Comment on above: Order Comment: Speci men Type: BLOOD SPECIMEN Ordering Facility: [facility] Address: [address] [place] [address] Performed By: #### 5 7021-8 #### [facility] LABORATORY CLIA [id number] [address] [place] [address] [place] Eosinophils/100 WBC (Bld) 1.0 % Normal [facility] Comment on above: Order Comment: Speci men Type: BLOOD SPECIMEN Ordering Facility: [facility] Address: [address] [place] [address] Performed By: #### 5 7021-8 #### [facility] LABORATORY CLIA [id number] [address] [place] [address] [place] Erythrocyte distribution width (RBC) [Ratio] 23.0 % High 11.5-15.0 [facility] Comment on above: Order Comment: Speci men Type: BLOOD SPECIMEN Ordering Facility: [facility] Address: [address] [place] [address] Performed By: #### 5 7021-8 #### [facility] LABORATORY CLIA [id number] [address] [place] [address] [place] Giant platelets LM Ql (Bld) Occasional Normal [facility] Comment on above: Order Comment: Speci men Type: BLOOD SPECIMEN Ordering Facility: [facility] Address: [address] [place] [address] Performed By: #### 5 7021-8 #### [facility] LABORATORY CLIA [id number] [address] [place] [address] STATES [facility] Hematocrit (Bld) [Volume fraction] 37.5 % Normal 36.0-46.0 [facility] Comment on above: Order Comment: Speci men Type: BLOOD SPECIMEN Ordering Facility: [facility] Address: [address] [place] [address] Performed By: #### 5 7021-8 #### [facility] LABORATORY CLIA [id number] [address] [place] [address] [place] Hemoglobin (Bld) [Mass/Vol] 12.3 g/dL Normal 11.5-15.5 [facility] Comment on above: Order Comment: Speci men Type: BLOOD SPECIMEN Ordering Facility: [facility] Address: [address] [place] [address] Performed By: #### 5 7021-8 #### JARETT [facility] LABORATORY CLIA [id number] [address] [place] [address] [place] Lymphocytes (Bld) [#/Vol] 1.06 10*3/uL Normal 1.00-4.00 [facility] Comment on above: Order Comment: Speci men Type: BLOOD SPECIMEN Ordering Facility: [facility] Address: [address] [place] [address] Performed By: #### 5 7021-8 #### [facility] LABORATORY CLIA [id number] [address] [place] [address] [place] Lymphocytes/100 WBC (Bld) 14.0 % Normal [facility] Comment on above: Order Comment: Speci men Type: BLOOD SPECIMEN Ordering Facility: [facility] Address: [address] [place] [address] Performed By: #### 5 7021-8 #### [facility] LABORATORY CLIA [id number] [address] [place] [address] [place] MCH (RBC) [Entitic mass] 28.3 pg Normal 26.0-34.0 [facility] Comment on above: Order Comment: Speci men Type: BLOOD SPECIMEN Ordering Facility: [facility] Address: [address] [place] [address] Performed By: #### 5 7021-8 #### [facility] LABORATORY CLIA [id number] [address] [place] [address] [place] MCHC (RBC) [Mass/Vol] 32.8 g/dL Normal 30.5-36.0 [facility] Comment on above: Order Comment: Speci men Type: BLOOD SPECIMEN Ordering Facility: [facility] Address: [address] [place] [address] Performed By: #### 5 7021-8 #### [facility] LABORATORY CLIA [id number] [address] [place] [address] [place] MCV (RBC) [Entitic vol] 86.2 fL Normal 80.0-100.0 C [facility] Comment on above: Order Comment: Speci men Type: BLOOD SPECIMEN Ordering Facility: [facility] Address: [address] [place] [address] Performed By: #### 5 7021-8 #### [facility] LABORATORY CLIA [id number] [address] [place] [address] [place] Monocytes (Bld) [#/Vol] 0.61 10*3/uL Normal <0.87 [facility] Comment on above: Order Comment: Speci men Type: BLOOD SPECIMEN Ordering Facility: [facility] Address: [address] [place] [address] Performed By: #### 5 7021-8 #### [facility] LABORATORY CLIA [id number] [address] [place] [address] [place] Monocytes/100 WBC (Bld) 8.0 % Normal C [facility] Comment on above: Order Comment: Speci men Type: BLOOD SPECIMEN Ordering Facility: [facility] Address: [address] [place] [address] Performed By: #### 5 7021-8 #### [facility] LABORATORY CLIA [id number] [address] [place] [address] [place] MYELO% 2.0 % Normal [facility] Comment on above: Order Comment: Speci men Type: BLOOD SPECIMEN Ordering Facility: [facility] Address: [address] [place] [address] Performed By: #### 5 7021-8 #### [facility] LABORATORY CLIA [id number] [address] [place] [address] [place] Neutrophils (Bld) [#/Vol] 5.70 10*3/uL Normal 1.45-7.50 [facility] Comment on above: Order Comment: Speci men Type: BLOOD SPECIMEN Ordering Facility: [facility] Address: [address] [place] [address] Performed By: #### 5 7021-8 #### JARETT [facility] LABORATORY CLIA [id number] [facility] [place] [address] [place] Neutrophils/100 WBC (Bld) 75.0 % Normal [facility] Comment on above: Order Comment: Speci men Type: BLOOD SPECIMEN Ordering Facility: [facility] Address: [address] [place] [address] Performed By: #### 5 7021-8 #### [facility]AL[facility] LABORATORY CLIA [id number] [facility] [place] [address] [place] Nucleated RBC (Bld) [#/Vol] 10*3/uL Normal <0.01 [facility] Comment on above: Order Comment: Speci men Type: BLOOD SPECIMEN Ordering Facility: [facility] Address: [address] [place] [address] Performed By: #### 5 7021-8 #### [facility] LABORATORY CLIA [id number] [address] [place] [address] [place] Nucleated RBC/100 WBC (Bld) [Ratio] 0.0 /100 WBC Normal [facility] Comment on above: Order Comment: Speci men Type: BLOOD SPECIMEN Ordering Facility: [facility] Address: [address] [place] [address] Performed By: #### 5 7021-8 #### [facility] LABORATORY CLIA [id number] [address] [place] [address] [place] Ovalocytes LM Ql (Bld) Few Normal [facility] Comment on above: Order Comment: Speci men Type: BLOOD SPECIMEN Ordering Facility: [facility] Address: [address] [place] [address] Performed By: #### 5 7021-8 #### [facility]AL[facility] LABORATORY CLIA [id number] [address] [place] [address] [place] Platelet mean volume (Bld) [Entitic vol] Normal [facility] Comment on above: Order Comment: Speci men Type: BLOOD SPECIMEN Ordering Facility: [facility] Address: [address] [place] [address] Result Comment: Unab le to Report. Performed By: #### 5 7021-8 #### [facility] LABORATORY CLIA [id number] [address] [place] [address] OF [place] Platelets (Bld) [#/Vol] 102 10*3/uL Low 150-400 [facility] Comment on above: Order Comment: Speci men Type: BLOOD SPECIMEN Ordering Facility: [facility] Address: [address] [place] [address] Performed By: #### 5 7021-8 #### [facility] LABORATORY CLIA [id number] [address] [place] [address] [place] [facility] OF ANN Platelets Estimate (Bld) [#/Vol] Decreased Normal [facility] Comment on above: Order Comment: Speci men Type: BLOOD SPECIMEN Ordering Facility: [facility] Address: [address] [place] [address] Performed By: #### 5 7021-8 #### [facility] LABORATORY CLIA [id number] [address] [place] [address] STATES [facility] Polychromasia LM Ql (Bld) Slight Normal [facility] Comment on above: Order Comment: Speci men Type: BLOOD SPECIMEN Ordering Facility: [facility] Address: [address] [place] [address] Performed By: #### 5 7021-8 #### [facility] LABOR[facility] CLIA [id number] [address] [place] [address] [place] RBC (Bld) [#/Vol] 4.35 10*6/uL Normal 3.90-5.20 [facility] Comment on above: Order Comment: Speci men Type: BLOOD SPECIMEN Ordering Facility: [facility] Address: [address] [place] [address] Performed By: #### 5 7021-8 #### [facility] LABORATORY CLIA [id number] [address] [place] [address] [place] RED CELL MORPH Reviewed: see results of individual morphologies Normal [facility] Comment on above: Order Comment: Speci men Type: BLOOD SPECIMEN Ordering Facility: [facility] Address: [address] [place] [address] Performed By: #### 5 7021-8 #### [facility]T [facility] LABORATORY CLIA [id number] [address] STATES [place] WBC (Bld) [#/Vol] 7.60 10*3/uL Normal 3.70-11.00 [facility] Comment on above: Order Comment: Speci men Type: BLOOD SPECIMEN Order[facility] Facility: [facility] Address: [address] [place] [address] Performed By: #### 5 7021-8 #### [facility] LABORATORY CLIA [id number] [address] [place] [address] [place] WBC Left Shift Ql (Bld) Present Normal [facility] Comment on above: Order Comment: Speci men Type: BLOOD SPECIMEN Ordering Facility: [facility] Address: [address] [place] [address] Performed By: #### 5 7021-8 #### [facility] LABORATORY CLIA [id number] [address] [place] [address] OF [facility] Comprehensive metabolic 2000 panelOrdered By: Brina Salas on 09-28-2024 Albumin [Mass/Vol] 3.8 g/dL Low 3.9 - 4.9 g/dL [facility] ALP [Catalytic activity/Vol] 176 U/L High 34 - 123 U/L [facility] ALT [Catalytic activity/Vol] 10 U/L 7 - 38 U/L [facility] Anion gap [Moles/Vol] 14 mmol/L 8 - 15 mmol/L [facility] AST [Catalytic activity/Vol] 16 U/L 13 - 35 U/L [facility] Bilirubin [Mass/Vol] 0.3 mg/dL 0.2 - 1.3 mg/dL [facility] Calcium [Mass/Vol] 10.5 mg/dL High 8.5 - 10. 2 mg/dL [facility] Chloride [Moles/Vol] 99 mmol/L 98 - 107 mmol/L [facility] CO2 [Moles/Vol] 22 mmol/L 22 - 30 mmol/L [facility] Creatinine [Mass/Vol] 0.67 mg/dL 0.58 - 0.96 mg/dL [facility] GFR/1.73 sq M.predicted among non-blacks MDRD (S/P/Bld) [Vol rate/Area] 127 mL/min/{1.73_m2} - PINF [facility] Comment on above: Estimated Glomerular Filtration Rate [...] not accurately reflect actual GFR. Glucose [Mass/Vol] 91 mg/dL 74 - 99 mg/dL [facility] Comment on above: The [place] Diab[employer] Association (ADA) provides guidance for [...] Standards of Medical Care in Diabetes 2016, [place] [employer]. Diabetes Care. 2016.39(Suppl 1). Interpretation and review of laboratory results Abnormal [facility] Potassium [Moles/Vol] 4.3 mmol/L 3.7 - 5.1 mmol/L [facility] Protein [Mass/Vol] 6.6 g/dL 6.3 - 8.0 g/dL [facility] Sodium [Moles/Vol] 135 mmol/L Low 136 - 144 mmol/L [facility] Urea nitrogen [Mass/Vol] 15 mg/dL 7 - 21 mg/dL [facility] Comprehensive metabolic 2000 panelon 09-28-2024 Albumin [Mass/Vol] 3.8 g/dL Low 3.9-4.9 [facility] Comment on above: Order Comment: Speci men Type: BLOOD SPECIMENOrdering Facility: [facility] Address: [address] [place] [address] Performed By: #### 2 4323-8, 3083-02 ####[facility] CORRALA [id number] [place] [address] [place] ALP [Catalytic activity/Vol] 176 U/L High 34-123 [facility] Comment on above: Order Comment: Speci men Type: BLOOD SPECIMENOrdering Facility: [facility] Address: [address] [place] [address] Performed By: #### 2 4323-8, 3083-02 ####[facility] LORENAJAQUIA [id number] [place] [address] [place] ALT [Catalytic activity/Vol] 10 U/L Normal 7-38 [facility] Comment on above: Order Comment: Speci men Type: BLOOD SPECIMENOrdering Facility: [facility] Address: [address] [place] [address] Performed By: #### 2 4323-8, 3083-02 ####[facility] FLIPWRADHALIA [id number] [place] [address] [place] Anion gap [Moles/Vol] 14 mmol/L Normal 8-15 [facility] Comment on above: Order Comment: Speci men Type: BLOOD SPECIMENOrdering Facility: [facility] Address: [address] [place] [address] Performed By: #### 2 4323-8, 3083-02 ####[facility] KRISTYWRADHALIA [id number] [place] [address] [place] AST [Catalytic activity/Vol] 16 U/L Normal 13-35 [facility] Comment on above: Order Comment: Speci men Type: BLOOD SPECIMENOrdering Facility: [facility] Address: [address] [place] [address] Performed By: #### 2 4323-8, 3083-02 ####[facility] GRANT MILLTOWNCLIA [id number] [place] [address] [place] Bilirubin [Mass/Vol] 0.3 mg/dL Normal 0.2-1.3 [facility] Comment on above: Order Comment: Speci men Type: BLOOD SPECIMENOrdering Facility: [facility] Address: [address] [place] [address] Performed By: #### 2 4323-8, 3083-02 ####[facility] MILLTOWNCLIA [id number] [place] [address] [place] Calcium [Mass/Vol] 10.5 mg/dL High 8.5-10.2 [facility] Comment on above: Order Comment: Speci men Type: BLOOD SPECIMENOrdering Facility: [facility] Address: [address] [place] [address] Performed By: #### 2 4323-8, 3083-02 ####[facility] MILLTOWNCLIA [id number] [place] [address] [place] Chloride [Moles/Vol] 99 mmol/L Normal 98-107 [facility] Comment on above: Order Comment: Speci men Type: BLOOD SPECIMENOrdering Facility: [facility] Address: [address] [place], [place] [address] Performed By: #### 2 4323-8, 3083-02 ####[facility] MILLTOWNCLIA [id number] [place] [address] [place] CO2 [Moles/Vol] 22 mmol/L Normal 22-30 [facility] Comment on above: Order Comment: Speci men Type: BLOOD SPECIMENOrdering Facility: [facility] Address: [address] [place], [place] [address] Performed By: #### 2 4323-8, 3083-02 ####[facility] [id number] [place] [address] [place] Creatinine [Mass/Vol] 0.67 mg/dL Normal 0.58-0.96 [facility] Comment on above: Order Comment: Kayli moon Type: BLOOD SPECIMENOrdering Facility: [facility] Address: [address] [place] [address] Performed By: #### 2 4323-8, 3083-02 ####[facility] [id number] [place] [address] [place] eGFRcr SerPlBld CKD-EPI 2020 127 mL/min/1.73m??? Normal >=60 [facility] Comment on above: Order Comment: Kayli moon Type: BLOOD SPECIMENOrdering Facility: [facility] Address: [address] [place] [address] Result Comment: Nick mated Glomerular Filtration Rate [...] reflect actual GFR. Performed By: #### 2 4323-8, 3083-02 ####[facility] [id number] [place] [address] [place] Glucose [Mass/Vol] 91 mg/dL Normal 74-99 [facility] Comment on above: Order Comment: Kayli moon Type: BLOOD SPECIMENOrdering Facility: [facility] Address: [address] [place] [address] Result Comment: The [place] Diabetes Association (ADA) provides guidance for cutoff [...] Standards of Medical Care in Diabetes 2016, [place] [employer]. Diabetes Care. 2016.39(Suppl 1). Performed By: #### 2 4323-8, 3083- ####[facility] KRISTYBUTCH [id number] [place] [address] [place] Potassium [Moles/Vol] 4.3 mmol/L Normal 3.7-5.1 [facility] Comment on above: Order Comment: Speci men Type: BLOOD SPECIMENOrdering Facility: [facility] Address: [address] [place] [address] Performed By: #### 2 4323-8, 3083-02 ####[facility]ITAL[facility] [id number] [place] [address] [place] Protein [Mass/Vol] 6.6 g/dL Normal 6.3-8.0 [facility] Comment on above: Order Comment: Speci men Type: BLOOD SPECIMENOrdering Facility: [facility] Address: [address] [place] [address] Performed By: #### 2 4323-8, 3083-02 ####[facility]ITAL[facility] [id number] [place] [address] [place] Sodium [Moles/Vol] 135 mmol/L Low 136-144 [facility] Comment on above: Order Comment: Speci men Type: BLOOD SPECIMENOrdering Facility: [facility] Address: [address] [place] [address] Performed By: #### 2 4323-8, 3083-02 ####[facility] H[facility]PITALRADHALIA [id number] [place] [address] [place] Urea nitrogen [Mass/Vol] 15 mg/dL Normal 7-21 [facility] Comment on above: Order Comment: Speci men Type: BLOOD SPECIMENOrdering Facility: [facility] Address: [address] [place] [address] Performed By: #### 2 4323-8, 3084-1 ####[facility] [id number] [place] [address] [place] URIC ACIDon 09-28-2024 Urate [Mass/Vol] 5.0 mg/dL 2.5 - 6.6 mg/dL [facility] URINE OB DIP B/Oon 5 Glucose Ql (U) Negative Neg mg/dL [facility] Interpretation and review of laboratory results Normal [facility] Protein.monoclonal (U) [Mass/Vol] Negative Neg mg/dL [facility] Urate SerPl-mCncon 5 Urate [Mass/Vol] 5.0 mg/dL Normal 2.5-6.[address] [facility] Comment on above: Order Comment: Speci men Type: BLOOD SPECIMENOrdering Facility: [facility] Address: [address] [place] [address] Performed By: #### 2 4323-8, 4-1 ####[facility] [id number] [place] [address] [place] Urate [Mass/Vol]on 5 Interpretation and review of laboratory results Normal [facility] BACTERIAL VAGINOSIS NAATon 0 2024 Lactobacillus crispatus+gasseri+jense mendoza + Gardnerella vaginalis + Atopobium vaginae rRNA SHYAM+probe Ql (Vag fld) Not detected Normal Not detected [facility] Comment on above: Order Comment: Speci men Type: SWABOrdering Facility: [facility] Address: [address] [place] [address] Performed By: #### 3 6902-5, BVAMP ####[facility] LABCLIA [id number] [address] STATES OF [place] C. trachomatis+N. gonorrhoea e DNA SHYAM+probe Ql (Unsp spec)on 2024 C. trachomatis rRNA SHYAM+probe Ql (Unsp spec) Not detected Normal Not detected [facility] Comment on above: Order Comment: Speci men Type: SWABOrdering Facility: [facility] Address: [address] [place] [address] Performed By: #### 3 6902-5, BVAMP ####[facility] LABCLIA [id number] [place] [address] [place] N. gonorrhoeae rRNA SHYAM+probe Ql (Unsp spec) Not detected Normal Not detected [facility] Comment on above: Order Comment: Speci men Type: SWABOrdering Facility: [facility] Address: [address] [place] [address] Performed By: #### 3 6902-5, BVAMP ####[facility] LABCLIA [id number] [place] [address] [place] ALMITA/TRICHOMONAS NAATon 0 2024 C. glabrata RNA SHYAM+probe Ql (Vag fld) Not detected Normal Not detected [facility] Comment on above: Order Comment: Speci men Type: SWAB [facility] Address: [address] [place] [address] Performed By: #### C VTV #### [facility] CLIA [id number] [address] [place] [address] [place] Almita sp DNA SHYAM+probe Ql (Vag fld) Detected Abnormal Not detected [facility] Comment on above: Order Comment: Speci men Type: SWAB [facility] Address: [address] [place] [address] Result Comment: The Almita species group target includes C. albicans, C. tropicalis, C. parapsilosis, and C. dubliniensis. Performed By: #### C VTV #### [facility] CLIA [id number] [address] [place] [address] STATES OF [facility] T. vaginalis DNA SHYAM+probe Ql (Unsp spec) Not detected Normal Not detected [facility] Comment on above: Order Comment: Speci men Type: SWAB [facility] Address: [address] [place] [address] Performed By: #### C VTV #### [facility] CLIA [id number] [address] [place] [address] OF ANN HISTORY PHYSICALon HISTORY PHYSICAL HNO ID: [id number] Author: YAMILA BALLARD MD Service: ? Author Type: Physician Type: H&P Filed: 2024 14:32 Note Text: Pre-Op History and Physical HPI: The patient is a 24 year old female presenting for pre-operative visit. She is scheduled for and tubal sterilization for h/o shoulder dysotocia, LGA fetus on 10/07/24. Procedure discussed along with risks, benefits and complications. Other alternatives discussed for management. Consent form signed? Yes. PAST MEDICAL HISTORY Diagnosis Date Anemia Chronic tonsillitis Depression 10/08/2016 Gall stone 07/2022 cholecystectomy after delivery GERD (gastroesophageal reflux disease) H/O shoulder dystocia in prior , currently ([facility]) 12/14/22 Hemorrhoids History of back problems History of depression History of shoulder dystocia in prior 03/10/2024 Kidney stones Paroxysmal SVT (supraventricular tachycardia) ([facility]) Postoperative pulmonary embolism ([facility]) 06/2023 Psychiatric disorder depression, anxiety and PTSD PAST SURGICAL HISTORY Procedure Laterality Date CHOLECYSTECTOMY HX 06/17/2023 [facility] IUD REMOVAL 09/15/2023 PT [facility] 10/03/2023 TONSILLECTOMY HX Current Outpatient Medications Medication Sig Dispense Refill metoprolol tartrate, short acting, (LOPRESSOR) 25 mg tablet Take 25 mg by mouth two times a day. Omeprazole Magnesium (PRILOSEC OTC) 20 mg tablet Take 1 tablet by mouth two times a day as needed (heartburn). 60 tablet 3 aspirin, enteric coated (ECOTRIN LOW STRENGTH) 81 mg EC tablet Take 1 tablet by mouth once daily. 90 tablet 3 folic acid 1 mg tablet Take 1 tablet by mouth once daily. 30 tablet 1 ondansetron (ZOFRAN) 4 mg tablet Take 1 tablet by mouth every 6 hours as needed for nausea/vomiting. 120 tablet 1 No current facility-administere d medications for this visit. ALLERGIES: Latex PERSONAL HISTORY: SOCIAL HISTORY[1] FAMILY HISTORY: FAMILY HISTORY Problem Relation Age of Onset other (migraines) Mother None Father Ovarian cancer Maternal Grandmother Anesthesia Problems No Family History REVIEW OF SYMPTOMS: GENERAL: denies fevers or chills ENDOCRINOLOGY: has not been on steroids Cardiology : denies palpitations or chest pain Respiratory: denies SOB or cough Hematology: denies history of prolonged bleeding or easy bruising or VTE Allergy: Denies history of personal or family history of allergy to anesthesia PHYSICAL EXAMINATION: VITALS: Blood pressure 108/74, weight 88 kg (194 lb), last menstrual period 01/07/2024, not currently . GENERAL: The patient is well nourished, well hydrated in no acute distress. , The patient is oriented to time, place, and person. NECK: Supple. No lynphadenopathy, normal thyroid, no thyromegaly. LUNGS: Clear to auscultation bilaterally. no wheezes, rhonchi or rales HEART: Regular rate and rhythm, Normal heart sounds, and No murmurs or gallops abd- soft, nontender, gravid ext trace edema IMPRESSION: Estimated Date of Delivery: 10/13/24 PLAN: The risks/benefits/alter natives and personal involved for the planned c-s and sterilization were reviewed with the patient. Her questions were answered to her satisfaction and she desires to proceed. Consent was signed. I reviewed with her postop instructions and expectations. Risks, benefits and alternatives to sterilization have been discussed with the patient. She declines reversible options including LARC. She understands sterilization is permanent, irreversible, risks of failure, regret and ectopic. In addition she understands there are surgical risks as well. Her questions were answered to her satisfaction and consent was signed. I have reviewed and updated past medical and surgical history, medications and allergies Yamila Ballard M.D. [1] Social History Tobacco Use Smoking status: Never Passive exposure: Yes Smokeless tobacco: Never Tobacco comments: Vapes Vaping Use Vaping status: Every Day Substances: Nicotine, Flavoring Devices: Disposable Substance Use Topics Alcohol use: Not Currently Drug use: Not Currently Frequency: 2.0 times per week Types: Marijuana Comment: smoking Normal [facility] ROUTINE, GROUP B ST REPTOCOCCUS BY PCRon 2024 ROUTINE, GROUP B STREPTOCOCCUS BY PCR Not detected Normal [facility] Comment on above: Performed By: #### G BPCR ####[facility] LABCLIA [id number] [address] STATES OF [facility] URINE OB DIP B/Oon Glucose Ql (U) Negative Neg mg/dL [facility] Interpretation and review of laboratory results Normal [facility] Protein.monoclonal (U) [Mass/Vol] Negative Neg mg/dL [facility] CNPNon 09-21-2024 CNPN Telephone (OBGYWM) KEAGAN ALICIA ([id number]) 4 F Date Time Provider Department 09/21/24 AYMILA BALLARD OBIRIS During your visit today, we recorded the following information about you: Chantelle Marquis RN 09/21/2024 9:21 AM Signed 36w6d Received a fax from [facility] in [place] for patient's records. Patient is scheduled for her Pre Op with RR tomorrow for her C/S scheduled on 10/07. Left message for patient to call the office. Is she transferring care? Chantelle Marquis RN Allergies As of Date: 09/21/2024 Noted Allergy Reaction LATEX 07/02/2023 9 - Itching Date Reviewed: 09/17/2024 Reviewed by: Barbi Tian APRN.BLOOD TESTER FOWL - Fully Assessed Reason for Visit: Records Request from [facility] [Other] Prescriptions as of 09/21/2024 - metoprolol tartrate, short acting, (LOPRESSOR) 25 [...] for nausea/vomiting. Problem List As Of Date 09/21/2024 Noted Resolved Depression [F32.A] 10/08/2016 Generalized anxiety disorder [F41.1] 08/21/2018 33 weeks gestation of [Z3A.33] 02/27/2017 01/30/2023 Antepartum anemia complicating in [facility]*06/03/2017 Encounter for supervision of normal first pregn*02/27/2017 [...] [O99*08/05/2024 Maternal iron deficiency anemia complicating pr*08/05/2024 Abnormality in heart rate or rhythm, ante*09/17/2024 Supervision of high risk in third tri*09/17/2024 Encounter Status:Closed by CHANTELLE MARQUIS on 09/21/24 Normal [facility] (ROM) Rupture Of Membraneson 09-19-2024 ROM Negative Normal Negative [facility] Comment on above: Result Comment: Amni otic fluid not present indicates No Rupture of Membranes at time of specimen collection. Performed By: #### L 205.1000 ####[facility] [id number] [facility] [place], [address] OB Triage Physician Noteon 0 09-19-2024 OB Triage Physician Note [facility] Medical Records Department [address] [place] [address] OB Triage Physician Note 09/19/24 1330 MR#: [id number] Acct: [id number] Name: KEAGAN ALICIA Rep #: [id number] : 2000 23 From: Jaquelin Hi CNM PCP: ZIA [facility] Status:REG CLI Y Location: LF071-2 HPI - General HPI Narrative KEAGAN ALICIA, is a 23 F who presents at 36 weeks. States leakage of fluid at 0400 and underwear wet throughout the day. Intermittent non painful contractions. Maternal Data Information LUZ Calculator Estimated Delivery Date Method Current WG Current Estimate 10/13/24 Manual 36w 4d PFSH PFSH Medical History (Updated 09/19/24 @ 13:40 by Jaquelin Hi CNM) Pulmonary embolism Anxiety depression Depression Home Medications [...] / Time latex AdvReac Mild Itching Verified 09/19/24 12:47 Family History Father Drug abuse Surgical History [...] births # of living children Physical Exam Manual OB Exam: presentation cephalic, dilated 2cm, effaced 50%, station -2 and other no gross fluid and can palpate bag of water. NST FHR Rate Baby A Baseline: 145 Variability:: Moderate Accelerations:: 15 x 15 Decelerations:: None NST Reactive:: Yes Uterine Activity:: Irregular, mild Assessment Plan (1) Vaginal discharge: (2) 36 weeks gestation of : PLAN: Plan 1) ROM plus negative and no gross rupture 2) Reactive NST 3) D/C home 09/19/24 1340 Date Jaquelin QUINTERO Cosigner Signature (if applicable): Date _ CC: FRANDY Hi; ZIA Amador Signed Normal [facility] (ROM) Rupture Of Membraneson 09-09-2024 ROM Negative Normal Negative [facility] Comment on above: Result Comment: Amni otic fluid not present indicates No Rupture of Membranes at time of specimen collection. Performed By: #### L 205.1000 #### [facility] Laboratory [address] [place], [address] [facility] 09-09-2024 CNPN Telephone (OBGYWM) KEAGAN ALICIA ([id number]) 4 F Date Time Provider Department 09/09/24 JAQUELIN HI During your visit today, we recorded the following information about you: Tamie Steward LPN 09/09/2024 10:06 AM Signed Ob patient is 35w1d called stating I think my water broke reports a constant dampness pantiess since waking up and stated that bed linens were damp when she woke up and having irregular contractions. Discussed with Jaquelin Hi. Patient was told to go to [facility] for evaluation. Patient is scheduled for a [...] Status:Closed by TAMIE STEWARD on 09/09/24 Normal [facility] No Panel Informationon 09-09 Interpretation and review of laboratory results Abnormal [facility] OB Triage Physician Noteon 0 09-09-2024 OB Triage Physician Note [facility] Medical Records Department [address] [place] [address] OB Triage Physician Note 09/09/24 1451 MR#: [id number] Acct: [id number] Name: KEAGAN ALICIA Rep #: [id number] : 2000 23 From: Yamila Ballard MD PCP: Rachell Amador NP-C Status:REG CLI Y Location: [place] [address] HPI - General General Date of Service: [...] 1d Final LUZ: 10/13/24 Gestational age: 35 1/7 PFSH PFS Medical History (Updated 09/09/24 @ 14:58 [...] 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 09/09/24 1502 Date (more content not included)... Normal [facility] RAPID TOX SCREEN WITH RELEXo n 09-09-2024 Amphetamine (U) [Mass/Vol] Negative NEGATIVE NG/ML [facility] Comment on above: <500 ng/ml CUTOFF Barbiturates Screen Ql (U) Negative NEGATIVE NG/ML [facility] Comment on above: <200 ng/ml CUTOFF Benzodiazepines Ql (U) Negative NEGATIVE NG/M L [facility] Comment on above: <200 ng/ml CUTOFF Benzoylecgonine Ql (U) Negative NEGATIVE NG/M L [facility] Comment on above: <150 ng/ml CUTOFF Buprenorphine Ql (U) Negative NEGATIVE NG/ML [facility] Comment on above: <10 ng/ml CUTOFF Cannabinoids Screen Ql (U) Negative NEGATIVE NG/ML [facility] Comment on above: <50 ng/ml CUTOFF Fentanyl Negative NEGATIVE NG/ML [facility] Comment on above: 1.0 ng/mL CUTOFF *Unconfirmed Screening Result* Unconfirmed screening results are to be used only for medical treatment purposes. This test has not been approved by the FDA. Methadone+Metabolite Screen Ql (U) Negative NEGATIVE NG/ML [facility] Comment on above: Methadone Metabolite <100 ng/ml CUTOFF Testing performed at [place] [address] Methamphetamine (U) [Mass/Vol] Negative NEGATIVE NG/ML [facility] Comment on above: <500 ng/ml CUTOFF Opiates Screen Ql (U) Negative NEGATIVE NG/ML [facility] Comment on above: <300 ng/ml CUTOFF oxyCODONE Ql (U) Negative NEGATIVE NG/ML [facility] Comment on above: <100 ng/ml CUTOFF Tricyclic antidepressants Screen Ql (U) Negative NEGATIVE NG/ML [facility] Comment on above: <1000 ng/ml CUTOFF [facility] RAPID TOX SCREEN,URINE WITH REFLEXon 09-09-2024 AMPHETAMINE Negative Normal NEGATIVE [facility] Comment on above: Result Comment: <500 ng/ml CUTOFF Performed By: #### R TOXR, UMAC, UMIC #### [place] [address] BARBITURATES Negative Normal NEGATIVE [facility] Comment on above: Result Comment: <200 ng/ml CUTOFF Performed By: #### R TOXR, UMAC, UMIC #### [place] [address] BENZODIAZEPINES Negative Normal NEGATIVE [facility] Comment on above: Result Comment: <200 ng/ml CUTOFF Performed By: #### R TOXR, UMAC, UMIC #### [place] [address] BUPRENORPHINE Negative Normal NEGATIVE [facility] Comment on above: Result Comment: <10 ng/ml CUTOFF Performed By: #### R TOXR, UMAC, UMIC #### [place] [address] CANNABINOIDS Negative Normal NEGATIVE [facility] Comment on above: Result Comment: <50 ng/ml CUTOFF Performed By: #### R TOXR, UMAC, UMIC #### [place] [address] COCAINE Negative Normal NEGATIVE [facility] Comment on above: Result Comment: <150 ng/ml CUTOFF Performed By: #### R TOXR, UMAC, UMIC #### [place] [address] FENTANYL Negative Normal NEGATIVE [facility] Comment on above: Result Comment: 1.0 ng/mL CUTOFF *Unconfirmed Screening Result* Unconfirmed screening results are to be used only for medical treatment purposes. This test has not been approved by the FDA. Performed By: #### R TOXR, UMAC, UMIC #### [place] [address] METHADONE METABOLITE Negative Normal NEGATIVE [facility] Comment on above: Result Comment: Meth adone Metabolite <100 ng/ml CUTOFF Testing performed at [place] [address] Performed By: #### R TOXR, UMAC, UMIC #### [place] [address] METHAMPHETAMINE Negative Normal NEGATIVE [facility] Comment on above: Result Comment: <500 ng/ml CUTOFF Performed By: #### R TOXR, UMAC, UMIC #### [place] [address] OPIATES Negative Normal NEGATIVE [facility] Comment on above: Result Comment: <300 ng/ml CUTOFF Performed By: #### R TOXR, UMAC, UMIC #### [place] [address] OXYCODONE Negative Normal NEGATIVE [facility] Comment on above: Result Comment: <100 ng/ml CUTOFF Performed By: #### R TOXR, UMAC, UMIC #### [place] [address] TRICYCLIC ANTIDEPRESSANTS Negative Normal NEGATIVE [facility] Comment on above: Result Comment: <100 0 ng/ml CUTOFF Performed By: #### R TOXR, UMAC, UMIC #### [place] [address] STREP SCREEN GRP Bon 07-31-2 025 STREP SCREEN GRP B SPECIMEN DESCRIPTION VAGINAL/RECTAL CULTURE NO GROUP B BETA STREP ISOLATED * Result Note: Testing performed at [place] [address] * REPORT STATUS 09/12/2024 * Result Note: FINAL * Normal [facility] Comment on above: Performed By: #### O BSC #### Testing performed at [address] [address] URINALYSIS, MACROon 09-10-19 25 Bilirubin Ql (U) SMALL Abnormal NEGATIVE [facility] Clarity (U) CLOUDY Abnormal CLEAR [facility] Color (U) YELLOW YELLOW [facility] Glucose Test strip (U) [Mass/Vol] Negative NEGATIVE mg/dl [facility] Hemoglobin Ql (U) SMALL Abnormal NEGATIVE [facility] Ketones (U) [Mass/Vol] 15 mg/dL Abnormal NEGATIVE [facility] Leukocyte esterase Test strip Ql (U) TRACE Abnormal NEGATIVE [facility] Nitrite Ql (U) Negative NEGATIVE [facility] pH (U) 6 [pH] 5.0 - 7.0 [facility] Protein Ql (U) 30 mg/dl Abnormal NEGATIVE [facility] Specific gravity (U) [Rel density] >1.030 High 1.010 - 1.025 [facility] Urobilinogen (U) [Mass/Vol] 0.2 mg/dL [facility] URINE CULTUREon 09-09-2024 Bacteria identified Cx Nom (U) SPECIMEN DESCRIPTION URINE - OTHER CULTURE NO GROWTH 2 DAYS * Result Note: Testing performed at [place] [address] * REPORT STATUS 09/11/2024 * Result Note: FINAL * Normal [facility] Comment on above: Performed By: #### A URNC #### Testing performed at [address] [address] URINE MACROSCOPICon 09-10-19 25 Bilirubin Ql (U) SMALL Abnormal NEGATIVE [facility] Comment on above: Performed By: #### R TOXR, UMAC, UMIC #### Testing performed at [address] [address] Clarity (U) CLOUDY Abnormal CLEAR [facility] Comment on above: Performed By: #### R TOXR, UMAC, UMIC #### Testing performed at [address] [address] Color (U) YELLOW Normal YELLOW [facility] Comment on above: Performed By: #### R TOXR, UMAC, UMIC #### [place] [address] Glucose Ql (U) Negative Normal NEGATIVE [facility] Comment on above: Performed By: #### R TOXR, UMAC, UMIC #### [place] [address] pH (U) 6.0 [pH] Normal 5.0-7.0 [facility] Comment on above: Performed By: #### R TOXR, UMAC, UMIC #### [place] [address] Protein (U) [Mass/Vol] 30 mg/dL Abnormal NEGATIVE [facility] Comment on above: Performed By: #### R TOXR, UMAC, UMIC #### Testing performed at [place] [id number] URINE HEMOGLOBIN SMALL Abnormal NEGATIVE [facility] Comment on above: Performed By: #### R TOXR, UMAC, UMIC #### [place] [address] URINE KETONE 15 mg/dl Abnormal NEGATIVE [facility] Comment on above: Performed By: #### R TOXR, UMAC, UMIC #### [place] [address] URINE LEUKOTEST TRACE Abnormal NEGATIVE [facility] Comment on above: Performed By: #### R TOXR, UMAC, UMIC #### [place] [address] URINE NITRATES Negative Normal NEGATIVE [facility] Comment on above: Performed By: #### R TOXR, UMAC, UMIC #### [place] [address] URINE SPEC GRAVITY >1.030 High 1.010-1.025 [facility] Comment on above: Performed By: #### R TOXR, UMAC, UMIC #### [place] [address] Urobilinogen Qn (U) 0.2 {Teagan'U}/dL Normal 0.2-1.0 [facility] Comment on above: Performed By: #### R TOXR, UMAC, UMIC #### [place] [address] URINE MICROSCOPICon 09-10-19 25 Bacteria LM.HPF (Urine sed) [#/Area] 2+ Abnormal NEGATIVE [facility] Casts LM.LPF (Urine sed) [#/Area] NONE NONE /LPF [facility] Crystals LM Nom (Urine sed) NONE NONE [facility] Epithelial cells LM Ql (Urine sed) 5 TO 10 /HPF [facility] Mucus Ql (Urine sed) Negative NEGATIVE [facility] RBC LM.HPF (Urine sed) [#/Area] 5 TO 10 NEGATIVE /HPF [facility] Urine sediment comments LM Shemar (Urine sed) REFLEX CULTURE PER ESTABLISHED CRITERIA. [facility] WBC LM.HPF (Urine sed) [#/Area] '5 TO 10 NEGATIVE /HPF [facility] BACTERIA 2+ Abnormal NEGATIVE [facility] Comment on above: Performed By: #### R TOXR, UMAC, UMIC #### [place] [address] CASTS NONE Normal [facility] Comment on above: Performed By: #### R TOXR, UMAC, UMIC #### Testing performed at [place] [id number] CRYSTAL NONE Normal [facility] Comment on above: Performed By: #### R TOXR, UMAC, UMIC #### [place] [address] Epithelial cells LM Ql (Urine sed) 5 TO 10 Normal [facility] Comment on above: Performed By: #### R TOXR, UMAC, UMIC #### [place] [address] Mucus Ql (Urine sed) Negative Normal NEGATIVE [facility] Comment on above: Performed By: #### R TOXR, UMAC, UMIC #### Testing performed at [facility] [address] [place] [address] URINE COMMENT REFLEX CULTURE PER ESTABLISHED CRITERIA. Normal [facility] Comment on above: Performed By: #### R TOXR, UMAC, UMIC #### Testing performed at [facility] [address] [place] [address] URINE RBC'S 5 TO 10 Normal NEGATIVE [facility] Comment on above: Performed By: #### R TOXR, UMAC, UMIC #### Testing performed at [facility] [address] [place] [address] URINE WBC'S '5 TO 10 Normal NEGATIVE [facility] Comment on above: Performed By: #### R TOXR, UMAC, UMIC #### Testing performed at [address] [address] Urine Cultureon 09-09-2024 URC Culture exhibits no growth. Normal [facility] Comment on above: Performed By: #### M 100.2200 #### [facility] Laboratory [address] [facility] [place], [address] OB Triage Physician Noteon 0 09-08-2024 OB Triage Physician Note [facility] Medical Records Department [address] [facility] [address] OB Triage Physician Note 09/08/24 1826 MR#: [id number] Acct: [id number] Name: KEAGAN ALICIA Rep #: [id number] : 2000 23 From: Yamila Ballard MD PCP: ZIA [facility] Status:DEP CLI Y Location: [facility] HPI - General General Date of Admission: [...] Cosigner Signature (if applicable): Date _ CC: BIOMETRICS SPECIALIST-Gayla Amador; Dr. Yamila Ballard MD Signed Normal [facility] URINE OB DIP B/Oon Glucose Ql (U) Negative Neg mg/dL [facility] Interpretation and review of laboratory results Normal [facility] Protein.monoclonal (U) [Mass/Vol] Negative Neg mg/dL [facility] Urinalysis, Routine (Dipstic k)on 09-08-2024 LEUK ESTERASE 500 /ul Abnormal Negative [facility] Comment on above: Order Comment: LILI CTOR TO SPECIFY Performed By: #### L 400.2010 ####[facility] [address] [place], [address] Nitrite Ql (U) Negative Normal Negative [facility] Comment on above: Order Comment: LILI CTOR TO SPECIFY Performed By: #### L 400.2010 ####[facility] [address] [place], [address] OCCULT BLOOD-UR 50 /ul Abnormal Negative [facility] Comment on above: Order Comment: LILI CTOR TO SPECIFY Performed By: #### L 400.2010 ####[facility] [address] [place], [address] BILIRUBIN URINE Negative Normal Negative [facility] Comment on above: Order Comment: LILI CTOR TO SPECIFY Performed By: #### L 400.2010 ####[facility] [address] [place], [address] Clarity (U) Cloudy Normal Clear [facility] Comment on above: Order Comment: LILI CTOR TO SPECIFY Performed By: #### L 400.2010 ####[facility] [address] [place], [address] Color (U) Yellow Normal Yellow [facility] Comment on above: Order Comment: LILI CTOR TO SPECIFY Performed By: #### L 400.2010 ####[facility] [address] [place], [address] GLUCOSE, UR Negative Normal Normal [facility] Comment on above: Order Comment: COLLE CTOR TO SPECIFY Performed By: #### L 400.2010 ####[facility] [address] [place], [address] KETONE UR 5 mg/dl Abnormal Negative [facility] Comment on above: Order Comment: LILI CTOR TO SPECIFY Performed By: #### L 400.2010 ####[facility] [address] [place], [address] pH UR 6.0 Normal 5.0 - 8.0 [facility] Comment on above: Order Comment: LILI CTOR TO SPECIFY Performed By: #### L 400.2010 ####[facility] [address] [place], [address] PROT DIPSTX 30 mg/dl Abnormal Negative [facility] Comment on above: Order Comment: LILI CTOR TO SPECIFY Performed By: #### L 400.2010 ####[facility] [address] [place], [address] SP.GR. DIPSTX 1.020 Normal 1.002-1.030 [facility] Comment on above: Order Comment: LILI CTOR TO SPECIFY Performed By: #### L 400.2010 ####[facility] [address] [place], [address] UROBILI Normal Normal Normal [facility] Comment on above: Order Comment: LILI CTOR TO SPECIFY Performed By: #### L 400.2010 ####[facility] [address] [place], [address] Bilirubin Test strip Ql (U)O rdered By: Yamila Ballard on 09-07-2024 Bilirubin Ql (U) Negative Negative [facility] Examination level ultrasound on 09-07-[address] [facility] Radiology Study observation (narrative) [facility] Ketones Test strip Ql (U)Ord ered By: Yamila Ballard on 09-07-2024 Ketones Ql (U) 5 mg/dl High Negative [facility] Nitrite Test strip Ql (U)Ord ered By: Yamila Ballard on 09-07-2024 Nitrite Ql (U) Negative Negative [facility] Protein Test strip Ql (U)Ord ered By: Yamila Ballard on 09-07-2024 Protein Ql (U) 30 mg/dl High Negative [facility] URINE OB DIP B/Oon Glucose Ql (U) Negative Neg mg/dL [facility] Interpretation and review of laboratory results Normal [facility] Protein.monoclonal (U) [Mass/Vol] Negative Neg mg/dL [facility] Urine clarityOrdered By: Jasmyn Ballard on 09-07-2024 Clarity (U) Cloudy Clear [facility] Urine color determinationOrd ered By: Yamila Ballard on 09-07-2024 Color (U) Yellow Yellow [facility] Urine cultureOrdered By: Jasmyn Ballard on 09-07-2024 Bacteria identified Cx Nom (U) Culture exhibits no growth. [facility] Urine glucose detectionOrder ed By: Yamila Ballard on 09-07-2024 Glucose Ql (U) Negative Normal [facility] Urine leukocyte esterase det ection by dipstickOrdered By: Yamila Ballard on 09-07-2024 Leukocyte esterase Test strip Ql (U) 500 /ul High Negative [facility] Urine pHOrdered By: Yamila Ballard on 09-07-2024 pH (U) 6.0 [pH] 5.0 - 8.0 [facility] Urine specific gravity measu rementOrdered By: Yamila Ballard on 09-07-2024 Specific gravity (U) [Rel density] 1.020 1.002-1.030 [facility] Urine urobilinogen measureme ntOrdered By: Yamila Ballard on 09-07-2024 Urobilinogen Ql (U) Normal mg/dl Normal [facility] CBC W Auto Differential pane l (Bld)on 09-04-2024 Basophils (Bld) [#/Vol] 0.03 10*3/uL Normal <0.11 [facility] Comment on above: Order Comment: Speci men Type: BLOOD SPECIMEN Ordering Facility: [facility] Address: [address] [place] [address] Performed By: #### 5 7021-8 #### [facility] CLIA [id number] [address] [place] [address] [place] Basophils/100 WBC (Bld) 0.4 % Normal [facility] Comment on above: Order Comment: Speci men Type: BLOOD SPECIMEN Ordering Facility: [facility] Address: [address] [place] [address] Performed By: #### 5 7021-8 #### [facility] CLIA [id number] [address] [place] [address] [place] Differential cell count method Nom (Bld) Auto Normal [facility] Comment on above: Order Comment: Speci men Type: BLOOD SPECIMEN Ordering Facility: [facility] Address: [address] [place] [address] Performed By: #### 5 7021-8 #### [facility] CLIA [id number] [address] [place] [address] [place] Eosinophils (Bld) [#/Vol] 0.07 10*3/uL Normal <0.46 [facility] Comment on above: Order Comment: Speci men Type: BLOOD SPECIMEN Ordering Facility: [facility] Address: [address] [place] [address] Performed By: #### 5 7021-8 #### [facility] CLIA [id number] [address] [place] [address] [place] Eosinophils/100 WBC (Bld) 0.9 % Normal [facility] Comment on above: Order Comment: Speci men Type: BLOOD SPECIMEN Ordering Facility: [facility] Address: [address] [place] [address] Performed By: #### 5 7021-8 #### [facility] CLIA [id number] [address] [place] [address] [place] Erythrocyte distribution width (RBC) [Ratio] 23.7 % High 11.5-15.0 [facility] Comment on above: Order Comment: Speci men Type: BLOOD SPECIMEN Ordering Facility: [facility] Address: [address] [place] [address] Performed By: #### 5 7021-8 #### [facility] CLIA [id number] [address] [place] [address] [place] Hematocrit (Bld) [Volume fraction] 37.6 % Normal 36.0-46.0 [facility] Comment on above: Order Comment: Speci men Type: BLOOD SPECIMEN Ordering Facility: [facility] Address: [address] [place] [address] Performed By: #### 5 7021-8 #### [facility] CLIA [id number] [address] [place] [id number] [place] Hemoglobin (Bld) [Mass/Vol] 11.8 g/dL Normal 11.5-15.5 [facility] Comment on above: Order Comment: Speci men Type: BLOOD SPECIMEN Ordering Facility: [facility] Address: [address] [place] [address] Performed By: #### 5 7021-8 #### [facility] CLIA [id number] [address] [place] [id number] [place] Immature granulocytes (Bld) [#/Vol] 0.10 10*3/uL High <0.10 [facility] Comment on above: Order Comment: Speci men Type: BLOOD SPECIMEN Ordering Facility: [facility] Address: [address] [place] [address] Performed By: #### 5 7021-8 #### [facility] CLIA [id number] [address] [place] [id number] [place] Immature granulocytes/100 WBC (Bld) 1.3 % Normal [facility] Comment on above: Order Comment: Speci men Type: BLOOD SPECIMEN Ordering Facility: [facility] Address: [address] [place] [address] Performed By: #### 5 7021-8 #### [facility] CLIA [id number] [address] [place] [address] [place] Lymphocytes (Bld) [#/Vol] 1.46 10*3/uL Normal 1.00-4.00 [facility] Comment on above: Order Comment: Speci men Type: BLOOD SPECIMEN Ordering Facility: [facility] Address: [address] [place] [address] Performed By: #### 5 7021-8 #### [facility] CLIA [id number] [address] [place] Lymphocytes/100 WBC (Bld) 19.6 % Normal [facility] Comment on above: Order Comment: Speci men Type: BLOOD SPECIMEN Ordering Facility: [facility] Address: [address] [place] [address] Performed By: #### 5 7021-8 #### [facility] CLIA [id number] [address] [place] [address] [place] MCH (RBC) [Entitic mass] 27.3 pg Normal 26.0-34.0 [facility] Comment on above: Order Comment: Speci men Type: BLOOD SPECIMEN Ordering Facility: [facility] Address: [address] [place] [address] Performed By: #### 5 7021-8 #### [facility] CLIA [id number] [address] [place] [address] [place] MCHC (RBC) [Mass/Vol] 31.4 g/dL Normal 30.5-36.0 [facility] Comment on above: Order Comment: Speci men Type: BLOOD SPECIMEN Ordering Facility: [facility] Address: [address] [place] [address] Performed By: #### 5 7021-8 #### [facility] CLIA [id number] [address] [place] [address] [place] MCV (RBC) [Entitic vol] 87.0 fL Normal 80.0-100.0 [facility] Comment on above: Order Comment: Speci men Type: BLOOD SPECIMEN Ordering Facility: [facility] Address: [address] [place] [address] Performed By: #### 5 7021-8 #### [facility] CLIA [id number] [address] [place] [address] [place] Monocytes (Bld) [#/Vol] 0.76 10*3/uL Normal <0.87 [facility] Comment on above: Order Comment: Speci men Type: BLOOD SPECIMEN Ordering Facility: [facility] Address: [address] [place] [address] Performed By: #### 5 7021-8 #### [facility] CLIA [id number] [address] [place] [address] [place] Monocytes/100 WBC (Bld) 10.2 % Normal [facility] Comment on above: Order Comment: Speci men Type: BLOOD SPECIMEN Ordering Facility: [facility] Address: [address] [place] [address] Performed By: #### 5 7021-8 #### [facility] CLIA [id number] [address] [place] [address] [place] Neutrophils (Bld) [#/Vol] 5.04 10*3/uL Normal 1.45-7.50 [facility] Comment on above: Order Comment: Speci men Type: BLOOD SPECIMEN Ordering Facility: [facility] Address: [address] [place] [address] Performed By: #### 5 7021-8 #### [facility] CLIA [id number] [address] [place] [address] [place] Neutrophils/100 WBC (Bld) 67.6 % Normal [facility] Comment on above: Order Comment: Speci men Type: BLOOD SPECIMEN Ordering Facility: [facility] Address: [address] [place] [address] Performed By: #### 5 7021-8 #### [facility] CLIA [id number] [address] [place] [address] [place] Nucleated RBC (Bld) [#/Vol] Normal [facility] Comment on above: Order Comment: Speci men Type: BLOOD SPECIMEN Ordering Facility: [facility] Address: [address] [place] [address] Performed By: #### 5 7021-8 #### [facility] CLIA [id number] [address] [place] [address] [place] Nucleated RBC/100 WBC (Bld) [Ratio] Normal [facility] Comment on above: Order Comment: Speci men Type: BLOOD SPECIMEN Ordering Facility: [facility] Address: [address] [place] [address] Performed By: #### 5 7021-8 #### [facility] CLIA [id number] [address] [place] [address] [place] Platelet mean volume (Bld) [Entitic vol] 12.5 fL Normal 9.0-12.7 [facility] Comment on above: Order Comment: Speci men Type: BLOOD SPECIMEN Ordering Facility: [facility] Address: [address] [place] [address] Performed By: #### 5 7021-8 #### [facility] CLIA [id number] [address] [place] [address] [place] Platelets (Bld) [#/Vol] 146 10*3/uL Low 150-400 [facility] Comment on above: Order Comment: Speci men Type: BLOOD SPECIMEN Ordering Facility: [facility] Address: [address] [place] [address] Result Comment: Resu lts checked and verified.No clot detected.Reviewed. Performed By: #### 5 7021-8 #### [facility] CLIA [id number] [address] [place] [address] [place] RBC (Bld) [#/Vol] 4.32 10*6/uL Normal 3.90-5.20 [facility] Comment on above: Order Comment: Speci men Type: BLOOD SPECIMEN Ordering Facility: [facility] Address: [address] [place] [address] Performed By: #### 5 7021-8 #### [facility] CLIA [id number] [address] [place] [address] [place] [facility] [place] WBC (Bld) [#/Vol] 7.46 10*3/uL Normal 3.70-11.00 [facility] Comment on above: Order Comment: Speci men Type: BLOOD SPECIMEN Ordering Facility: [facility] Address: [address] [place] [address] Performed By: #### 5 7021-8 #### [facility] CLIA [id number] [address] [place], [place] [address] [facility] [place] Ferritin SerPl-mCncon 2024 Ferritin [Mass/Vol] 164.0 ng/mL Normal 14.7-205.1 [facility] Comment on above: Order Comment: Speci men Type: BLOOD SPECIMEN Ordering Facility: [facility] Address: [address] [place] [address] Performed By: #### 2 276-4, 44854-3 #### [facility] CLIA [id number] [address] Iron and Iron binding capaci ty panelon 09-04-2024 Iron [Mass/Vol] 68 ug/dL Normal 41-186 [facility] Comment on above: Order Comment: Speci men Type: BLOOD SPECIMEN Ordering Facility: [facility] Address: [address] [place] [address] Performed By: #### 2 276-4, 05306-8 #### [facility] CLIA [id number] [address] Iron binding capacity [Mass/Vol] >568 High 232-386 [facility] Comment on above: Order Comment: Speci men Type: BLOOD SPECIMEN Ordering Facility: [facility] Address: [address] [place] [address] Performed By: #### 2 276-4, 95411-8 #### [facility] CLIA [id number] [address] [place] [address] [place] Iron saturation [Mass fraction] <12.0 Low 15.0-57.0 [facility] Comment on above: Order Comment: Speci men Type: BLOOD SPECIMEN Ordering Facility: [facility] Address: [address] [place] [address] Performed By: #### 2 276-4, 59261-3 #### [facility] CLIA [id number] [address] [place] [address] [place] (ROM) Rupture Of Membraneson 08-03-2024 ROM Negative Normal Negative [facility] Comment on above: Result Comment: Amni otic fluid not present indicates No Rupture of Membranes at time of specimen collection. Performed By: #### L 205.1000 #### [facility] [address] [place], [place], [id number] AST(SGOT)Ordered By: Prabhu Ortez on 08-03-2024 AST [Catalytic activity/Vol] 22 U/L Normal <=31 [facility] Comment on above: Performed By: #### L 501.4100, L100.0500, L501.4405, L501.1105, L501.1400, L501.0900 #### [facility] [address] [place], [place], [id number] Automated blood erythrocyte countOrdered By: Prabhu Ortez on 08-03-2024 RBC (Bld) [#/Vol] 3.42 10*6/uL Low 4.2-5.4 [facility] Comment on above: Performed By: #### L 501.4100, L100.0500, L501.4405, L501.1105, L501.1400, L501.0900 #### [facility] [address] [place], [place], [id number] Automated blood hematocrit ( percentage)Ordered By: Prabhu Ortez on 08-03-2024 Hematocrit (Bld) [Volume fraction] 28.5 % Low 37-47 [facility] Comment on above: Performed By: #### L 501.4100, L100.0500, L501.4405, L501.1105, L501.1400, L501.0900 #### [facility] [address] [place], [place], [id number] CBC-Complete Blood Cnt No Di ffon 08-03-2024 RDW SD 42.0 fl Normal 35.1-43.9 [facility] Comment on above: Performed By: #### L 501.4100, L100.0500, L501.4405, L501.1105, L501.1400, L501.0900 #### [facility] [address] [place], [address] ECG 12 lead (Clinic Performe d)on 08-03-2024 Sinus rhythm with HR of 97bpm, QRS 72ms, QT 336ms and [id number] *Please refer to scanned ECG for final report* [facility] Work Phone: Erythrocyte distribution wid th ratioOrdered By: Prabhu Ortez on 08-03-2024 Erythrocyte distribution width (RBC) [Ratio] 13.9 % Normal 11.6-14.6 [facility] Comment on above: Performed By: #### L 501.4100, L100.0500, L501.4405, L501.1105, L501.1400, L501.0900 #### [facility] [address] [place], [address] Erythrocyte distribution wid th standard deviationOrdered By: Prahbu Ortez on 08-03-2024 Erythrocyte distribution width (RBC) [Ratio] 42.0 fl 35.1-43.9 [facility] Glomerular filtration rate ( GFR) estimation/1.73 sq m using serum, plasma, or whole bOrdered By: Prabhu Ortez on 08-03-2024 GFR/1.73 sq M.predicted among non-blacks MDRD (S/P/Bld) [Vol rate/Area] 130 mL/min/{1.73_m2} Normal >60 [facility] Comment on above: mL/min/1.73m2 CKD-EP I Creatinine Equation (2020) Result Comment: mL/m in/1.73m2 CKD-EPI Creatinine Equation (2020) Performed By: #### L 501.4100, L100.0500, L501.4405, L501.1105, L501.1400, L501.0900 #### [facility] [address] [place], [place], [id number] Hemoglobin measurementOrdere d By: Prabhu Ortez on 08-03-2024 Hemoglobin (Bld) [Mass/Vol] 8.9 g/dL Low 12.0-15.0 [facility] Comment on above: Performed By: #### L 501.4100, L100.0500, L501.4405, L501.1105, L501.1400, L501.0900 #### [facility] [address] [place], [place], [address] MCV (mean corpuscular volume ) determinationOrdered By: Prabhu Ortez on 08-03-2024 MCV (RBC) [Entitic vol] 83.3 fL Normal 81-99 [facility] Comment on above: Performed By: #### L 501.4100, L100.0500, L501.4405, L501.1105, L501.1400, L501.0900 #### [facility] [address] [place], [place], [address] Mean corpuscular hemoglobin (MCH) determinationOrdered By: Prabhu Ortez on 08-03-2024 MCH (RBC) [Entitic mass] 26.0 pg Low 27.0-32.0 [facility] Comment on above: Performed By: #### L 501.4100, L100.0500, L501.4405, L501.1105, L501.1400, L501.0900 #### [facility] [address] [place], [place], [address] Mean corpuscular hemoglobin concentration (MCHC) determinationOrdered By: Prabhu Ortez on 08-03-2024 MCHC (RBC) [Mass/Vol] 31.2 g/dL Low 32-36 [facility] Comment on above: Performed By: #### L 501.4100, L100.0500, L501.4405, L501.1105, L501.1400, L501.0900 #### [facility] [address] [place], [address] Mean platelet volume determi nationOrdered By: Prabhu Ortez on 08-03-2024 Platelet mean volume (Bld) [Entitic vol] 12.4 fL High 6.2-12.0 [facility] Comment on above: Performed By: #### L 501.4100, L100.0500, L501.4405, L501.1105, L501.1400, L501.0900 #### [facility] [address] [place], [place], [address] OB Triage Physician Noteon 0 08-03-2024 OB Triage Physician Note [facility] Medical Records Department [address] [place] [address] OB Triage Physician Note 08/03/24 2107 MR#: [id number] Acct: [id number] Name: KEAGAN ALICIA Rep #: [id number] : 2000 23 From: Prabhu Ortez MD PCP: ZIA [facility] Status:DEP CLI Y Location: [facility] HPI - General General Date of Service: 08/03/24 HPI Narrative KEAGAN ALICIA, is a 23 F who presents with intermittent headaches. Maternal Data Information LUZ Calculator Estimated Delivery Date Method Current WG Current Estimate 10/13/24 Manual 29w 6d PFSH PFSH Medical History (Updated 08/03/24 @ 21:09 by [...] Cosigner Signature (if applicable): Date _ CC: BIOMETRICS SPECIALIST-C Rachell Amador; Dr. Prabhu Ortez MD Signed Normal [facility] Platelet countOrdered By: Georgina Ortez on 08-03-2024 Platelets (Bld) [#/Vol] 124 10*3/uL Low 150-450 [facility] Comment on above: Performed By: #### L 501.4100, L100.0500, L501.4405, L501.1105, L501.1400, L501.0900 #### [facility] [address] [place], [address] Protein+Creatinine Ratio,Uri neon 08-03-2024 PROT:CRE RATIO 191 mg/g CRE Normal 0-200 [facility] Comment on above: Performed By: #### L 501.4100, L100.0500, L501.4405, L501.1105, L501.1400, L501.0900 #### [facility] [address] [place], [address] UR CREAT 65.30 mg/dL Normal 28.00-217.00 [facility] Comment on above: Performed By: #### L 501.4100, L100.0500, L501.4405, L501.1105, L501.1400, L501.0900 #### [facility] [address] [place], [address] Random urine creatinine reynaldo urement (mass/volume)Ordered By: Prabhu Ortez on 08-03-2024 Creatinine Unsp time (U) [Mass/Vol] 65.30 mg/dL 28.00-217.00 [facility] Serum Creatinine AND GFRon 0 08-03-2024 ECRCL 146.29 ml/min Normal 50-250 [facility] Comment on above: Performed By: #### L 501.4100, L100.0500, L501.4405, L501.1105, L501.1400, L501.0900 #### [facility] [address] [place], [address] Serum creatinine measurement (mass/volume)Ordered By: Prabhu Ortez on 08-03-2024 Creatinine [Mass/Vol] 0.61 mg/dL Low 0.70-1.20 [facility] Comment on above: Performed By: #### L 501.4100, L100.0500, L501.4405, L501.1105, L501.1400, L501.0900 #### [facility] [address] [place], [address] Serum or plasma alanine walker otransferase (ALT) measurementOrdered By: Prabhu Ortez on 08-03-2024 ALT [Catalytic activity/Vol] 12 U/L Normal <=34 [facility] Comment on above: Performed By: #### L 501.4100, L100.0500, L501.4405, L501.1105, L501.1400, L501.0900 ####[facility] [address] [place], [address] Serum or plasma uric acid me asurement (mass/volume)Ordered By: Prabhu Ortez on 08-03-2024 Urate [Mass/Vol] 4.1 mg/dL 2.6-6.0 [facility] Comment on above: The drugs N-Acetylcy steine and Metamizole may falsely depress this assay. Uric Acidon 08-03-2024 URIC 4.1 mg/dL Normal 2.6-6.0 [facility] Comment on above: Result Comment: The drugs N-Acetylcysteine and Metamizole may falsely depress this assay. Performed By: #### L 501.4100, L100.0500, L501.4405, L501.1105, L501.1400, L501.0900 ####[facility] [address] [place], [address] Urine protein measurement (m ass/volume)Ordered By: Prabhu Ortez on 08-03-2024 Protein (U) [Mass/Vol] 12.5 mg/dL High 0.0-12.0 [facility] Comment on above: Performed By: #### L 501.4100, L100.0500, L501.4405, L501.1105, L501.1400, L501.0900 #### [facility] [address] [place], [address] Urine protein/creatinine mas s ratioOrdered By: Prabhu Ortez on 08-03-2024 Protein/Creatinine (U) [Mass ratio] 191 mg/g CRE 0-200 [facility] White blood cell (WBC) count Ordered By: Prabhu Ortez on 08-03-2024 WBC (Bld) [#/Vol] 7.1 10*3/uL Normal 4.4-11.0 [facility] Comment on above: Performed By: #### L 501.4100, L100.0500, L501.4405, L501.1105, L501.1400, L501.0900 #### [facility] [address] [place], [address] [facility] KEAGAN ALICIA ([id number]) 4 F Date Time Provider Department 07/28/24 NURSE MANAGER TITLE [facility] During your visit today, we recorded the following information about you: Josefa Ricks, RN 07/28/2024 8:33 AM Signed 3rd risk [...] Status:Closed by JOSEFA RICKS on 07/28/24 Normal [facility] CBC W Auto Differential pane l (Bld)on 07-27-2024 Basophils (Bld) [#/Vol] 0.04 10*3/uL Normal <0.11 [facility] Comment on above: Order Comment: Speci men Type: BLOOD SPECIMENOrdering Facility: [facility] Address: [address] [place] [address] Performed By: #### 5 7021-8 ####[facility] MILLWAZLIA [id number] [place] [address] [place] Basophils/100 WBC (Bld) 0.5 % Normal [facility] Comment on above: Order Comment: Speci men Type: BLOOD SPECIMENOrdering Facility: [facility] Address: [address] [place] [address] Performed By: #### 5 7021-8 ####[facility] [id number] [place] [address] [place] Differential cell count method Nom (Bld) Auto Normal [facility] Comment on above: Order Comment: Speci men Type: BLOOD SPECIMENOrdering Facility: [facility] Address: [address] [place] [address] Performed By: #### 5 7021-8 ####[facility] [id number] [place] [address] [place] Eosinophils (Bld) [#/Vol] 0.17 10*3/uL Normal <0.46 [facility] Comment on above: Order Comment: Speci men Type: BLOOD SPECIMENOrdering Facility: [facility] Address: [address] [place] [address] Performed By: #### 5 7021-8 ####[facility] [id number] [place] [address] [place] Eosinophils/100 WBC (Bld) 2.0 % Normal [facility] Comment on above: Order Comment: Speci men Type: BLOOD SPECIMENOrdering Facility: [facility] Address: [address] [place] [address] Performed By: #### 5 7021-8 ####[facility]ITALNCBR[facility] [id number] [place] [address] [place] Erythrocyte distribution width (RBC) [Ratio] 13.5 % Normal 11.5-15.0 [facility] Comment on above: Order Comment: Speci men Type: BLOOD SPECIMENOrdering Facility: [facility] Address: [address] [place] [address] Performed By: #### 5 7021-8 ####[facility]ITALNCLI [id number] [place] [address] [place] Hematocrit (Bld) [Volume fraction] 29.7 % Low 36.0-46.0 [facility] Comment on above: Order Comment: Speci men Type: BLOOD SPECIMENOrdering Facility: [facility] Address: [address] [place] [address] Performed By: #### 5 7021-8 ####[facility] HOSPITALNCA [id number] [place] [address] [place] Hemoglobin (Bld) [Mass/Vol] 9.5 g/dL Low 11.5-15.5 [facility] Comment on above: Order Comment: Speci men Type: BLOOD SPECIMENOrdering Facility: [facility] Address: [address] [place] [address] Performed By: #### 5 7021-8 ####[facility]ITALNCBRIGH[facility] [id number] [place] [address] [place] Immature granulocytes (Bld) [#/Vol] 0.17 10*3/uL High <0.10 [facility] Comment on above: Order Comment: Speci men Type: BLOOD SPECIMENOrdering Facility: [facility] Address: [address] [place] [address] Performed By: #### 5 7021-8 ####[facility] [id number] [place] [address] [place] [facility] Immature granulocytes/100 WBC (Bld) 2.0 % Normal [facility] Comment on above: Order Comment: Speci men Type: BLOOD SPECIMENOrdering Facility: [facility] Address: [address] [place] [address] Performed By: #### 5 7021-8 ####[facility] HOSPITALNCLIA [id number] [place] [address] [place] Lymphocytes (Bld) [#/Vol] 1.41 10*3/uL Normal 1.00-4.00 [facility] Comment on above: Order Comment: Speci men Type: BLOOD SPECIMENOrdering Facility: [facility] Address: [address] [place] [address] Performed By: #### 5 7021-8 ####[facility] [id number] [place] [address] [place] Lymphocytes/100 WBC (Bld) 17.0 % Normal [facility] Comment on above: Order Comment: Speci men Type: BLOOD SPECIMENOrdering Facility: [facility] Address: [address] [place] [address] Performed By: #### 5 7021-8 ####[facility]ALTHLIA [id number] [place] [address] [place] MCH (RBC) [Entitic mass] 26.8 pg Normal 26.0-34.0 [facility] Comment on above: Order Comment: Speci men Type: BLOOD SPECIMENOrdering Facility: [facility] Address: [address] [place] [address] Performed By: #### 5 7021-8 ####[facility] [id number] [place] [address] [place] MCHC (RBC) [Mass/Vol] 32.0 g/dL Normal 30.5-36.0 [facility] Comment on above: Order Comment: Speci men Type: BLOOD SPECIMENOrdering Facility: [facility] Address: [address] [place] [address] Performed By: #### 5 7021-8 ####[facility] HOSPITALRADHANELLA [id number] [place] [address] [place] MCV (RBC) [Entitic vol] 83.7 fL Normal 80.0-100.0 C [facility] Comment on above: Order Comment: Speci men Type: BLOOD SPECIMENOrdering Facility: [facility] Address: [address] [place] [address] Performed By: #### 5 7021-8 ####[facility] HOSPITALANDRES [id number] [place] [address] [place] Monocytes (Bld) [#/Vol] 0.78 10*3/uL Normal <0.87 [facility] Comment on above: Order Comment: Speci men Type: BLOOD SPECIMENOrdering Facility: [facility] Address: [address] [place] [address] Performed By: #### 5 7021-8 ####[facility] HOSPITALJAQUIA [id number] [place] [address] [place] Monocytes/100 WBC (Bld) 9.4 % Normal C [facility] Comment on above: Order Comment: Speci men Type: BLOOD SPECIMENOrdering Facility: [facility] Address: [address] [place] [address] Performed By: #### 5 7021-8 ####[facility] HEALTHLIA [id number] [place] [address] [place] Neutrophils (Bld) [#/Vol] 5.73 10*3/uL Normal 1.45-7.50 [facility] Comment on above: Order Comment: Speci men Type: BLOOD SPECIMENOrdering Facility: [facility] Address: [address] [place] [address] Performed By: #### 5 7021-8 ####[facility] [id number] [place] [address] [place] Neutrophils/100 WBC (Bld) 69.1 % Normal [facility] Comment on above: Order Comment: Speci men Type: BLOOD SPECIMENOrdering Facility: [facility] Address: [address] [place] [address] Performed By: #### 5 7021-8 ####[facility] [id number] [place] [address] [place] Nucleated RBC (Bld) [#/Vol] 10*3/uL Normal <0.01 [facility] Comment on above: Order Comment: Speci men Type: BLOOD SPECIMENOrdering Facility: [facility] Address: [address] [place] [address] Performed By: #### 5 7021-8 ####[facility] [id number] [place] [address] [place] Nucleated RBC/100 WBC (Bld) [Ratio] 0.0 /100 WBC Normal [facility] Comment on above: Order Comment: Speci men Type: BLOOD SPECIMENOrdering Facility: [facility] Address: [address] [place] [address] Performed By: #### 5 7021-8 ####[facility] [id number] [place] [address] [place] Platelet mean volume (Bld) [Entitic vol] 12.0 fL Normal 9.0-12.7 [facility] Comment on above: Order Comment: Speci men Type: BLOOD SPECIMENOrdering Facility: [facility] Address: [address] [place] [address] Performed By: #### 5 7021-8 ####[facility] KRISTYMERRITTSTOWNNCLIA [id number] [place] [address] [place] Platelets (Bld) [#/Vol] 150 10*3/uL Normal 150-400 [facility] Comment on above: Order Comment: Speci men Type: BLOOD SPECIMENOrdering Facility: [facility] Address: [address] [place] [address] Result Comment: No c lot detected. Performed By: #### 5 7021-8 ####[facility] HOSPITALNCA [id number] [place] [address] [place] RBC (Bld) [#/Vol] 3.55 10*6/uL Low 3.90-5.20 [facility] Comment on above: Order Comment: Speci men Type: BLOOD SPECIMENOrdering Facility: [facility] Address: [address] [place] [address] Performed By: #### 5 7021-8 ####[facility] HOSPITALNCLIA [id number] [place] [address] [place] WBC (Bld) [#/Vol] 8.30 10*3/uL Normal 3.70-11.00 [facility] Comment on above: Order Comment: Speci men Type: BLOOD SPECIMENOrdering Facility: [facility] Address: [address] [place] [address] Performed By: #### 5 7021-8 ####[facility] HOSPITALNCLIA [id number] [place] [address] [place] Ferritin SerPl-mCncon 2024 Ferritin [Mass/Vol] 6.1 ng/mL Low 14.7-205.1 [facility] Comment on above: Order Comment: Speci men Type: BLOOD SPECIMENOrdering Facility: [facility] Address: [address] [place] [address] Performed By: #### 5 0190-8, 2275-05 ####[facility] LABCLIA [id number] [place] [address] [place] GESTATIONAL GLUCOSE SCREEN, 1-HOUR, 50 GRAM, NON-FASTINGon 07-27-2024 Glucose [Mass/Vol] 102 mg/dL Normal 74-134 [facility] Comment on above: Order Comment: Speci red Type: BLOOD SPECIMEN [facility] Address: [address] [place] [address] Result Comment: [facility] Congress of Obstetricians and Gynecologists (Ricki/Laurent) guidelines state a gestational diabetes mellitus positive screen is made, in women not previously diagnosed with overt diabetes, when the 1 hr plasma glucose level is equal to or above 140 mg/dL. The [facility] Progressive Care Unit Registered Nurse and Women's [facility] [place] recommends a 135 mg/dL cutoff. Performed By: #### 5 7021-8 #### [facility] MEXICOFIORDALIZA [facility] CLIA [id number] [address] [place] [address] [place] Iron and Iron binding capaci ty panelon 07-27-2024 Iron [Mass/Vol] 35 ug/dL Low 41-186 [facility] Comment on above: Order Comment: Kayli moon Type: BLOOD SPECIMENOrdering Facility: [facility] Address: [address] [place] [address] Performed By: #### 5 0190-8, 2275-05 ####[facility] LABCLIA [id number] [place] [id number] [place] Iron binding capacity [Mass/Vol] >535 High 232-386 [facility] Comment on above: Order Comment: Kayli moon Type: BLOOD SPECIMENOrdering Facility: [facility] Address: [address] [place] [address] Performed By: #### 5 0190-8, 2275-05 ####[facility] LABCLIA [id number] [place] [address] [place] Iron/TIBC [Molar ratio] <6.5 Low 15.0-57.0 C [facility] Comment on above: Order Comment: Speci men Type: BLOOD SPECIMENOrdering Facility: [facility] Address: [address] [place] [address] Performed By: #### 5 0190-8, 2276-4 ####[facility] LABCLIA [id number] [place] [address] [place] Reagin and Treponema pallidu m IgG and IgM [Interp]on 07-27-2024 T. pallidum IgG+IgM IA Ql (S) Non-Reactive Normal Nonreactive [facility] Comment on above: Order Comment: Speci men Type: BLOOD SPECIMEN [facility] Address: [address] [place] [address] Performed By: #### 5 7021-8 #### [facility] CLIA [id number] [address] [place] [address] [place] Reagin+T pallidum IgG+IgM Se rPl-Impon 07-27-2024 Reagin and Treponema pallidum IgG and IgM [Interp] Cannot exclude recent Treponemal infection if specimen collected within 7-10 days after appearance of suspect lesions or 2-3 weeks after an exposure. Clinical correlation is required. Normal [facility] Comment on above: Order Comment: Speci men Type: BLOOD SPECIMEN [facility] Address: [address] [place] [address] Performed By: #### 5 7021-8 #### [facility] CLIA [id number] [address] [place] [address] [place] TYPE + SCREEN PRENATALon ABO A Normal [facility] Comment on above: Order Comment: Speci men Type: BLOOD SPECIMENOrdering Facility: [facility] Address: [address] [place] [address] Performed By: #### T SPN ####[facility] BLOOD BANKCLIA [id number] Rh Nom (Bld) Negative Normal [facility] Comment on above: Order Comment: Speci men Type: BLOOD SPECIMENOrdering Facility: [facility] Address: [address] [place] [address] Performed By: #### T SPN ####[facility] BLOOD BANKCLIA [id number] [address] TYPE AND SCREEN EXPIRATION 07/30/2024 23:59 Normal [facility] Comment on above: Order Comment: Speci men Type: BLOOD SPECIMENOrdering Facility: [facility] Address: [address] [place] [address] Performed By: #### T SPN ####CC [facility] BLOOD BANKCLIA [id number] [address] CNPNon 06-02-2024 CNPN Telephone (OGFVWE) KEAGAN ALICIA ([id number]) 4 F Date Time Provider Department 06/02/24 NURSE MANAGER TITLE [facility] During your visit today, we recorded [...] Status:Closed by JOSEFA RICKS on 06/02/24 Normal [facility] Examination level ultrasound on 06-01-2024 Indication Standard [...] 1 oz EFW by: Hadlock (HC-AC-FL) Extended Chair Installer 5.6 mm CM 3.4 mm 5% Nicolaides [...] normal LVOT view: normal 3-vessel view: normal 9-qptaqi-uomibxg view: normal Heart / Thorax Situs: situs [...] Read By: Michelle Choe M.D. MATERNAL MEDICINE [facility] Radiology Study observation (narrative) [facility] Diego 05-10-2024 CNPN Telephone (OBGYWM) KEAGAN ALICIA ([id number]) 4 F Date Time Provider Department 05/10/24 PRABHU ORTEZ OBBILLWLilly During your visit today, we recorded the following information about you: Chantelle Marquis RN 05/10/2024 8:51 AM Signed Received breast pump RX from [employer]. To KJ to sign. KELLI Barrios Lindsey, [...] Status:Closed by ANTIONETTE WARD on 05/11/24 Normal [facility] CARRIER SCREEN, STANDARDon 0 04-07-2024 CARRIER SCREEN RESULTS View results in Scanned Documents link when available. Normal [facility] Comment on above: Order Comment: Speci men Type: BLOOD SPECIMEN [facility] Address: [address] [place] [address] Performed By: #### 5 7021-8 #### [facility] CLIA [id number] [address] [place] [address] [place] CBC W Auto Differential pane l (Bld)on 04-07-2024 Basophils (Bld) [#/Vol] 10*3/uL Normal <0.11 [facility] Comment on above: Order Comment: Speci men Type: BLOOD SPECIMENOrdering Facility: [facility] Address: [address] [place] [address] Performed By: #### 5 7021-8 ####[facility] MILLWNCLIA [id number] [place] [address] [place] Basophils/100 WBC (Bld) 0.4 % Normal [facility] Comment on above: Order Comment: Speci men Type: BLOOD SPECIMENOrdering Facility: [facility] Address: [address] [place] [address] Performed By: #### 5 7021-8 ####[facility] MILLTOWNCLIA [id number] [place] [address] [place] Differential cell count method Nom (Bld) Auto Normal [facility] Comment on above: Order Comment: Speci men Type: BLOOD SPECIMENOrdering Facility: [facility] Address: [address] [place] [address] Performed By: #### 5 7021-8 ####[facility] MILLWNCLIA [id number] [place] [address] [place] Eosinophils (Bld) [#/Vol] 0.13 10*3/uL Normal <0.46 [facility] Comment on above: Order Comment: Speci men Type: BLOOD SPECIMENOrdering Facility: [facility] Address: [address] [place] [address] Performed By: #### 5 7021-8 ####[facility] [id number] [place] [address] [place] Eosinophils/100 WBC (Bld) 2.7 % Normal [facility] Comment on above: Order Comment: Speci men Type: BLOOD SPECIMENOrdering Facility: [facility] Address: [address] [place] [address] Performed By: #### 5 7021-8 ####[facility] HOSPITALNCLIMario [id number] [place] [address] [place] Erythrocyte distribution width (RBC) [Ratio] 15.1 % High 11.5-15.0 [facility] Comment on above: Order Comment: Speci men Type: BLOOD SPECIMENOrdering Facility: [facility] Address: [address] [place] [address] Performed By: #### 5 7021-8 ####[facility] HOSPITALNCLIA [id number] [place] [address] [place] Hematocrit (Bld) [Volume fraction] 35.5 % Low 36.0-46.0 [facility] Comment on above: Order Comment: Speci men Type: BLOOD SPECIMENOrdering Facility: [facility] Address: [address] [place] [address] Performed By: #### 5 7021-8 ####[facility] HOSPITALNCLIA [id number] [place] [address] [place] Hemoglobin (Bld) [Mass/Vol] 12.0 g/dL Normal 11.5-15.5 [facility] Comment on above: Order Comment: Speci men Type: BLOOD SPECIMENOrdering Facility: [facility] Address: [address] [place] [address] Performed By: #### 5 7021-8 ####[facility]A [id number] [place] [address] [place] Immature granulocytes (Bld) [#/Vol] 10*3/uL Normal <0.10 [facility] Comment on above: Order Comment: Speci men Type: BLOOD SPECIMENOrdering Facility: [facility] Address: [address] [place] [address] Performed By: #### 5 7021-8 ####[facility] [id number] [place] [address] [place] Immature granulocytes/100 WBC (Bld) 0.2 % Normal [facility] Comment on above: Order Comment: Speci men Type: BLOOD SPECIMENOrdering Facility: [facility] Address: [address] [place] [address] Performed By: #### 5 7021-8 ####[facility] [id number] [place] [address] [place] Lymphocytes (Bld) [#/Vol] 1.48 10*3/uL Normal 1.00-4.00 [facility] Comment on above: Order Comment: Speci men Type: BLOOD SPECIMENOrdering Facility: [facility] Address: [address] [place] [address] Performed By: #### 5 7021-8 ####[facility] [id number] [place] [address] [place] Lymphocytes/100 WBC (Bld) 30.5 % Normal [facility] Comment on above: Order Comment: Speci men Type: BLOOD SPECIMENOrdering Facility: [facility] Address: [address] [place] [address] Performed By: #### 5 7021-8 ####[facility] MILLLAKSHMIWNCLIA [id number] [place] [address] [place] MCH (RBC) [Entitic mass] 29.5 pg Normal 26.0-34.0 [facility] Comment on above: Order Comment: Speci men Type: BLOOD SPECIMENOrdering Facility: [facility] Address: [address] [place] [address] Performed By: #### 5 7021-8 ####[facility] HOSPITALNCLIA [id number] [place] [address] [place] MCHC (RBC) [Mass/Vol] 33.8 g/dL Normal 30.5-36.0 [facility] Comment on above: Order Comment: Speci men Type: BLOOD SPECIMENOrdering Facility: [facility] Address: [address] [place] [address] Performed By: #### 5 7021-8 ####[facility] HOSPITALNCLIA [id number] [place] [address] [place] MCV (RBC) [Entitic vol] 87.2 fL Normal 80.0-100.0 C [facility] Comment on above: Order Comment: Speci men Type: BLOOD SPECIMENOrdering Facility: [facility] Address: [address] [place] [address] Performed By: #### 5 7021-8 ####[facility] MILLWNCLIA [id number] [place] [address] [place] Monocytes (Bld) [#/Vol] 0.37 10*3/uL Normal <0.87 [facility] Comment on above: Order Comment: Speci men Type: BLOOD SPECIMENOrdering Facility: [facility] Address: [address] [place] [address] Performed By: #### 5 7021-8 ####[facility] HOSPITALNCLIA [id number] [place] [address] [place] Monocytes/100 WBC (Bld) 7.6 % Normal [facility] Comment on above: Order Comment: Speci men Type: BLOOD SPECIMENOrdering Facility: [facility] Address: [address] [place] [address] Performed By: #### 5 7021-8 ####[facility] [id number] [place] [address] [place] Neutrophils (Bld) [#/Vol] 2.85 10*3/uL Normal 1.45-7.50 [facility] Comment on above: Order Comment: Speci men Type: BLOOD SPECIMENOrdering Facility: [facility] Address: [address] [place] [address] Performed By: #### 5 7021-8 ####[facility] [id number] [place] [address] [place] Neutrophils/100 WBC (Bld) 58.6 % Normal [facility] Comment on above: Order Comment: Speci men Type: BLOOD SPECIMENOrdering Facility: [facility] Address: [address] [place] [address] Performed By: #### 5 7021-8 ####[facility] [id number] [place] [address] [place] Nucleated RBC (Bld) [#/Vol] 10*3/uL Normal <0.01 [facility] Comment on above: Order Comment: Speci men Type: BLOOD SPECIMENOrdering Facility: [facility] Address: [address] [place] [address] Performed By: #### 5 7021-8 ####[facility] [id number] [place] [address] [place] Nucleated RBC/100 WBC (Bld) [Ratio] 0.0 /100 WBC Normal [facility] Comment on above: Order Comment: Speci men Type: BLOOD SPECIMENOrdering Facility: [facility] Address: [address] [place] [address] Performed By: #### 5 7021-8 ####[facility] KRISTYJoannNCDIEGO [id number] [place] [address] [place] Platelet mean volume (Bld) [Entitic vol] 11.5 fL Normal 9.0-12.7 [facility] Comment on above: Order Comment: Speci men Type: BLOOD SPECIMENOrdering Facility: [facility] Address: [address] [place] [address] Performed By: #### 5 7021-8 ####[facility] HOSPITALNCNELL [id number] [place] [address] [place] Platelets (Bld) [#/Vol] 180 10*3/uL Normal 150-400 [facility] Comment on above: Order Comment: Speci men Type: BLOOD SPECIMENOrdering Facility: [facility] Address: [address] [place] [address] Performed By: #### 5 7021-8 ####[facility] HOSPITALNCLIA [id number] [place] [address] [place] RBC (Bld) [#/Vol] 4.07 10*6/uL Normal 3.90-5.20 [facility] Comment on above: Order Comment: Speci men Type: BLOOD SPECIMENOrdering Facility: [facility] Address: [address] [place] [address] Performed By: #### 5 7021-8 ####[facility] HOSPITALNCLIA [id number] [place] [address] [place] WBC (Bld) [#/Vol] 4.86 10*3/uL Normal 3.70-11.00 [facility] Comment on above: Order Comment: Speci men Type: BLOOD SPECIMENOrdering Facility: [facility] Address: [address] [place] [id number] Performed By: #### 5 7021-8 ####[facility] CASTELANANDRES [id number] [place] [id number] [place] Examination level ultrasound on 04-07-2024 Indication First trimester anatomic survey Impression REMOTE READ The patient is referred for a first trimester anatomy scan including nuchal translucency measurement as clinically indicated. - Single, live, intrauterine . - [place] rump length measurement is consistent with the [...] view: normal 4-chamber view with color: normal 0-uozqmp-omkogit view: normal Abdominal cord insertion: normal Stomach: [...] Read By: Michelle Choe M.D. MATERNAL MEDICINE [facility] Radiology Study observation (narrative) [facility] HBV surface Ag Ser Qlon 03-14 HBV surface Ag Ql (S) Negative Normal Negative [facility] Comment on above: Order Comment: Speci men Type: BLOOD SPECIMENOrdering Facility: [facility] Address: [address] [place] [address] Performed By: #### 7 3752-8, 64151-4, 5195-3 ####[facility] LABCLIA [id number] [place] [address] [place] HCV Ab Ser Qlon 04-07-2024 HCV Ab Ql (S) Negative Normal Negative [facility] Comment on above: Order Comment: Speci men Type: BLOOD SPECIMEN [facility] Address: [address] [place] [address] Result Comment: The result suggests no evidence of active infection with Hepatitis C virus. Should recent infection be suspected, repeat testing may be considered 4-6 weeks after this draw. Performed By: #### 5 7021-8 #### [facility] CLIA [id number] [address] [place] [address] [place] HGB ELECTROPHORESIS FOR EVAL (LAB ORDER)on 04-07-2024 Hemoglobin A (Bld) [Mass fraction] 97.7 % Normal 96.2-98.0 [facility] Comment on above: Order Comment: Speci men Type: BLOOD SPECIMENOrdering Facility: [facility] Address: [address] [place] [address] Performed By: #### L [id number], HGBELEV ####[facility] LABCLIA [id number] [place] [id number] [place] Hemoglobin A2 (Bld) [Mass fraction] 2.3 % Normal 2.0-3.1 [facility] Comment on above: Order Comment: Speci men Type: BLOOD SPECIMENOrdering Facility: [facility] Address: [address] [place] [address] Performed By: #### L [id number], HGBELEV ####[facility] WESTIA [id number] [place] [address] [place] Hemoglobin Unsp Elph (Bld) [Mass fraction] No abnormal hemoglobin identified. Normal No abnormal hemoglobin identified. [facility] Comment on above: Order Comment: Speci men Type: BLOOD SPECIMENOrdering Facility: [facility] Address: [address] [place] [address] Performed By: #### L [id number], HGBELEV ####[facility] WESTIA [id number] [place] [address] [place] HGB EVALUATION CASCADE INTER Wilfredo 04-07-2024 Hemoglobin pattern (Bld) [Interp] Reviewed by Neelima Yusuf MD Normal [facility] Comment on above: Order Comment: Speci men Type: BLOOD SPECIMENOrdering Facility: [facility] Address: [address] [place] [address] Performed By: #### L [id number], HGBELEV ####[facility] WESTIA [id number] [place] [id number] [place] INTERPRETATION (HGB EVAL) Normal [facility] Comment on above: Order Comment: Speci men Type: BLOOD SPECIMENOrdering Facility: [facility] Address: [address] [place] [address] Result Comment: Hemo globins were analyzed by capillary electrophoresis and CBC red cell parameters were reviewed. No abnormal hemoglobin is identified. There is a normal hemoglobin capillary electrophoresis pattern. Performed By: #### L [id number], HGBELEV ####[facility] [id number] [place] [address] [place] HIV 1+2 Ab IA Qlon 5 HIV 1 and 2 Ab IA.rapid Nom (S/P/Bld) Normal [facility] Comment on above: Order Comment: Speci men Type: BLOOD SPECIMENOrdering Facility: [facility] Address: [address] [place] [address] Result Comment: Test not indicated. Performed By: #### 7 3752-8, 66732-2, 5195-3 ####[facility] [id number] [place] [address] [place] HIV 1+2 Ab+HIV1 p24 Ag IA Ql Non-Reactive Normal Nonreactive [facility] Comment on above: Order Comment: Speci men Type: BLOOD SPECIMENOrdering Facility: [facility] Address: [address] [place] [address] Performed By: #### 7 3752-8, 54820-5, 5195-3 ####[facility] [id number] [place] [address] [place] HIV immunoassay testing algorithm interpretation (S/P/Bld) [Interp] Normal [facility] Comment on above: Order Comment: Speci men Type: BLOOD SPECIMENOrdering Facility: [facility] Address: [address] [place] [address] Result Comment: No e vidence of HIV-1 or HIV-2 infection. Should recent infection be suspected, repeat testing may be considered 2-3 weeks after this draw. [place] Rev. Code 3701.243(E): This information has been [...] or diagnoses. Performed By: #### 7 3752-8, 92747-2, 5195-3 ####[facility] LABCLIA [id number] [place] [id number] [facility] OF [place] HbA1c (Bld)on 04-07-2024 Average glucose Estimated from glycated hemoglobin (Bld) [Mass/Vol] 88 mg/dL Normal [facility] Comment on above: Order Comment: Speci men Type: BLOOD SPECIMENOrdering Facility: [facility] Address: [address] [place] [address] Result Comment: eAG: (Estimated average glucose) is a calculated value from HgbA1c and is union representative of the average blood glucose level in the last 2-3 month period. Performed By: #### 5 5454-3 ####[facility] LABIA [id number] [address] STATES [facility] HbA1c (Bld) [Mass fraction] 4.7 % Normal 4.3-5.6 [facility] Comment on above: Order Comment: Kayli red Type: BLOOD SPECIMENOrdering Facility: [facility] Address: [address] [place] [address] Result Comment: Amer ican Diabetes Association guidelines indicate that patients with HgbA1c in the range 5.7-6.4% are at increased risk for development of diabetes, and intervention by lifestyle modification may be beneficial. HgbA1c greater or equal to 6.5% is considered diagnostic of diabetes. Performed By: #### 5 5454-3 ####[facility] LABIA [id number] [place] [id number] [place] [id number] PLUSon 04-07-2024 Cell-free DNA./Cell-free DNA.total Dosage of chromosome-specific cfDNA (cfDNA) [Molar fraction] 23% Normal [facility] Comment on above: Order Comment: Speci men Type: BLOOD SPECIMEN [facility] Address: [address] [place] [address] Performed By: #### 5 7021-8 #### [facility] CLIA [id number] [address] [place] [address] Chr 13+18+21+X+Y aneuploidy Dosage of chromosome-specific cfDNA Ql (cfDNA) Negative Normal [facility] Comment on above: Order Comment: Speci men Type: BLOOD SPECIMEN [facility] Address: [address] [place] [address] Performed By: #### 5 7021-8 #### [facility] CLIA [id number] [address] [place] [address] Chr 21 trisomy Dosage of chromosome-specific cfDNA Ql (cfDNA) Negative Normal [facility] Comment on above: Order Comment: Speci men Type: BLOOD SPECIMEN [facility] Address: [address] [place] [address] Performed By: #### 5 7021-8 #### [facility] CLIA [id number] [address] [place] [address] Chr X and Y aneuploidy risk Sequencing Ql (cfDNA) [Interp] Not detected Normal [facility] Comment on above: Order Comment: Speci men Type: BLOOD SPECIMEN [facility] Address: [address] [place] [address] Result Comment: Not Detected Not Detected Performed By: #### 5 7021-8 #### [facility] CLIA [id number] [address] [place] [address] Citation Shemar (Reference lab test) Comment Normal [facility] Comment on above: Order Comment: Speci men Type: BLOOD SPECIMEN [facility] Address: [address] [place] [address] Result Comment: 1. P fay OLEA, et al. Bere Med. 2012;14(3):296-305. 2. Ben BELL et al. Prenat Diag. 2013;33(6):591-597. 3. Chad C, et al. Clin Chem. 2015 Apr;61(4):608-616. 4. Tania OLEA et al. Bere Med. 2011;13(11):913-920. 5. ACOG/SMFM Practice Bulletin No. 226, Nov 2019. Performed By: #### 5 7021-8 #### [facility] CLIA [id number] [address] [place] [address] Gestational age Estimated from conception date Carney Normal [facility] Comment on above: Order Comment: Lindai men Type: BLOOD SPECIMEN [facility] Address: [address] [place] [address] Performed By: #### 5 7021-8 #### [facility] CLIA [id number] [address] [place] [address] GESTATIONALAGE AGE > OR = 9W Yes Normal [facility] Comment on above: Order Comment: Kayli moon Type: BLOOD SPECIMEN [facility] Address: [address] [place] [address] Performed By: #### 5 7021-8 #### [facility] CLIA [id number] [address] [place] [address] Laboratory comment Shemar (Report) Comment Normal [facility] Comment on above: Order Comment: Kayli moon Type: BLOOD SPECIMEN [facility] Address: [address] [place] [address] Result Comment: The MaterniT(R) 21 PLUS laboratory-developed test (LDT) analyzes circulating cell-free DNA from a maternal blood sample. This test is used for screening purposes and not diagnostic. Clinical correlation is recommended. Validation data on twin pregnancies is limited and the ability of this test to detect aneuploidy in higher multiple gestations has not yet been validated. Performed By: #### 5 7021-8 #### [facility] CLIA [id number] [address] [place] [address] community life director name Nom (Provider) Comment Normal [facility] Comment on above: Order Comment: Kayli moon Type: BLOOD SPECIMEN [facility] Address: [address] [place], [place] [address], [place] [address] Result Comment: This specimen showed an expected representation of chromosome 21, 18 and 13 material. Clinical correlation is suggested. Comment Vasyl Rocha MD, PhD, Director, e [facility] Performed By: #### 5 7021-8 #### [facility] CLIA [id number] [address] [place] [address] [place] LIMITATIONS OF THE TEST Comment Normal C [facility] Comment on above: Order Comment: Speci men Type: BLOOD SPECIMEN [facility] Address: [address] [place] [address] Result Comment: Whil e the results of these tests are highly [...] Xaparin(R), Clexane(R) and Fragmin(R)). Performed By: #### 5 7021-8 #### [facility] CLIA [id number] [address] [place] [address] Monosomy X risk Dosage of chromosome-specific cfDNA Ql (Plasma cell-free+WBC DNA) [Interp] Not detected Normal [facility] Comment on above: Order Comment: Kayli moon Type: BLOOD SPECIMEN [facility] Address: [address] [place] [address] Performed By: #### 5 7021-8 #### [facility] CLIA [id number] [address] [place] [address] NEGATIVE PREDICTIVE VALUE Note Normal [facility] Comment on above: Order Comment: Kayli moon Type: BLOOD SPECIMEN [facility] Address: [address] [place] [address] Result Comment: The Negative Predictive Value (NPV) for trisomy 21, 18, and 13 is greater than 99%. The NPV for SCA and ESS cannot be calculated as SCA and ESS are only reported when an abnormality is detected. Performed By: #### 5 7021-8 #### [facility] CLIA [id number] [address] [place] [address] PERFORMANCE CHARACTERISTICS Note Normal [facility] Comment on above: Order Comment: Kayli moon Type: BLOOD SPECIMEN [facility] Address: [address] [place] [address] Result Comment: ! Sex ! Accuracy: 99.4% [...] ! ! ! * As reported in [facility] database nstd37 [https://www.ncbi.nlm.nih.gov/dbvar/studies/nstd37/ ] # Estimated Sensitivity. Sensitivity estimated across the observed size distribution of each syndrome [per ISCA database nstd37] and across the range of fractions observed in routine clinical NIPT. Actual sensitivity can also be influenced by other factors such as the size of the event, total sequence counts, amplification bias, or sequence bias. ## Carney gestation only. Performed By: #### 5 7021-8 #### [facility] CLIA [id number] [address] [place] [address] POSITIVE PREDICTIVE VALUE N/A Normal [facility] Comment on above: Order Comment: Speci men Type: BLOOD SPECIMEN [facility] Address: [address] [place] [address] Performed By: #### 5 7021-8 #### [facility] CLIA [id number] [address] [place] [address] Reference Lab Test Method Comment Normal [facility] Comment on above: Order Comment: Speci men Type: BLOOD SPECIMEN [facility] Address: [address] [place] [address] Result Comment: See Notes Circulating cell-free DNA [...] chromosomes 16 and 22. Performed By: #### 5 7021-8 #### [facility] CLIA [id number] [address] [place] [address] OF [place] Service comment (Unsp spec) [Interp] Comment Normal [facility] Comment on above: Order Comment: Speci men Type: BLOOD SPECIMEN [facility] Address: [address] [place] [address] Result Comment: See Notes [employer]. is a subsidiary of [employer], using the brand [employer]. This test was developed and its performance characteristics determined by [employer]. It has not been cleared or approved by the Food and Drug Administration. This laboratory is certified under the Clinical Laboratory Improvement Amendments (CLIA) as qualified to perform high complexity clinical laboratory testing and accredited by the [employer] (CAP). If there is future clinical need for adding MaterniT GENOME testing, this specimen will be available until term. [facility] samples will not be retained beyond 60 days. [facility] patients will have to send a new sample for re-sequencing ([facility] Test Code: 466609). Performed By: #### 5 7021-8 #### [facility] CLIA [id number] [address] [place] [address] [place] Sex Dosage of chromosome-specific cfDNA Nom (cfDNA) Comment Normal [facility] Comment on above: Order Comment: Speci men Type: BLOOD SPECIMEN [facility] Address: [address] [place] [address] Result Comment: Cons istent with Female Performed By: #### 5 7021-8 #### [facility] CLIA [id number] [address] [place] [address] [place] [facility] Test performance information Shemar (Unsp spec) Comment Normal [facility] Comment on above: Order Comment: Speci men Type: BLOOD SPECIMEN [facility] Address: [address] [place] [address] Result Comment: The performance characteristics of the MaterniT(R) 21 PLUS laboratory-developed test (LDT) have been determined in a clinical validation study with women at increased risk for chromosomal aneuploidy.[1-4] Performed By: #### 5 7021-8 #### [facility] CLIA [id number] [address] [place] [address] [place] Trisomy 13 risk Dosage of chromosome-specific cfDNA Ql (cfDNA) [Interp] Negative Normal [facility] Comment on above: Order Comment: Speci men Type: BLOOD SPECIMEN [facility] Address: [address] [place] [address] Performed By: #### 5 7021-8 #### [facility] CLIA [id number] [address] [place] [address] [place] [facility] Trisomy 18 risk Dosage of chromosome-specific cfDNA Ql (Plasma cell-free+WBC DNA) [Interp] Negative Normal [facility] Comment on above: Order Comment: Speci men Type: BLOOD SPECIMEN [facility] Address: [address] [place] [address] Performed By: #### 5 7021-8 #### [facility] CLIA [id number] [address] [place] [address] [place] RBC PARAMETERS FOR HB IDon 0 - Erythrocyte distribution width (RBC) [Ratio] 15.5 % High 11.5-15.0 [facility] Comment on above: Order Comment: Speci men Type: BLOOD SPECIMENOrdering Facility: [facility] Address: [address] [place] [address] Performed By: #### L [id number] ####[facility] LABIA [id number] [place] [address] [place] Hematocrit (Bld) [Volume fraction] 38.0 % Normal 36.0-46.0 [facility] Comment on above: Order Comment: Speci men Type: BLOOD SPECIMENOrdering Facility: [facility] Address: [address] [place] [address] Performed By: #### L [id number] ####[facility] LABIA [id number] [place] [address] [place] Hemoglobin (Bld) [Mass/Vol] 12.5 g/dL Normal 11.5-15.5 [facility] Comment on above: Order Comment: Speci men Type: BLOOD SPECIMENOrdering Facility: [facility] Address: [address] [place] [address] Performed By: #### L [id number] ####[facility] LABIA [id number] [place] [address] [place] MCH (RBC) [Entitic mass] 29.4 pg Normal 26.0-34.0 [facility] Comment on above: Order Comment: Speci men Type: BLOOD SPECIMENOrdering Facility: [facility] Address: [address] [place] [address] Performed By: #### L [id number] ####[facility] LABIA [id number] [place] [address] [place] MCHC (RBC) [Mass/Vol] 32.9 g/dL Normal 30.5-36.0 [facility] Comment on above: Order Comment: Speci men Type: BLOOD SPECIMENOrdering Facility: [facility] Address: [address] [place] [address] Performed By: #### L [id number] ####[facility] [id number] [address] [place] MCV (RBC) [Entitic vol] 89.4 fL Normal 80.0-100.0 C [facility] Comment on above: Order Comment: Speci men Type: BLOOD SPECIMENOrdering Facility: [facility] Address: [address] [place] [address] Performed By: #### L [id number] ####[facility] LABIA [id number] [place] [address] [place] RBC (Bld) [#/Vol] 4.25 10*6/uL Normal 3.90-5.20 [facility] Comment on above: Order Comment: Speci men Type: BLOOD SPECIMENOrdering Facility: [facility] Address: [address] [place] [address] Performed By: #### L [id number] ####[facility] LABIA [id number] [address] OF [place] RUBELLA IGG ANTIBODYon 04-07 RUBELLA IGG AB, QUAL Positive Normal Positive [facility] Comment on above: Order Comment: Kayli moon Type: BLOOD SPECIMENOrdering Facility: [facility] Address: [address] [place] [address] Result Comment: The result suggests recent or past exposure to Rubella virus or history of Rubella vaccination. Positive result may also be seen due to presence of passively-transferred antibodies. Please correlate with patient's history. Performed By: #### R [id number] ####[facility] LABCLIA [id number] [place] [address] [place] Reagin and Treponema pallidu m IgG and IgM [Interp]on 04-07-2024 T. pallidum IgG+IgM IA Ql (S) Non-Reactive Normal Nonreactive [facility] Comment on above: Order Comment: Kayli moon Type: BLOOD SPECIMENOrdering Facility: [facility] Address: [address] [place] [address] Performed By: #### 7 3752-8, 81019-7, 5195-3 ####[facility] LABIA [id number] [place] [address] [place] Reagin+T pallidum IgG+IgM Se rPl-Impon 04-07-2024 Reagin and Treponema pallidum IgG and IgM [Interp] Cannot exclude recent Treponemal infection if specimen collected within 7-10 days after appearance of suspect lesions or 2-3 weeks after an exposure. Clinical correlation is required. Normal [facility] Comment on above: Order Comment: Kayli moon Type: BLOOD SPECIMENOrdering Facility: [facility] Address: [address] [place] [address] Performed By: #### 7 3752-8, 67230-6, 5195-3 ####[facility] LABIA [id number] [place] [id number] [place] TYPE + SCREEN PRENATALon ABO A Normal [facility] Comment on above: Order Comment: Speci men Type: BLOOD SPECIMENOrdering Facility: [facility] Address: [address] [place] [address] Performed By: #### T SPN ####[facility] BANKCLIA [id number] [address] Rh Nom (Bld) Negative Normal [facility] Comment on above: Order Comment: Speci men Type: BLOOD SPECIMENOrdering Facility: [facility] Address: [address] [place] [address] Performed By: #### T SPN ####[facility] BANKCLIA [id number] [address] TYPE AND SCREEN EXPIRATION 04/10/2024 23:59 Normal [facility] Comment on above: Order Comment: Speci men Type: BLOOD SPECIMENOrdering Facility: [facility] Address: [address] [place] [address] Performed By: #### T SPN ####[facility]LO[facility] BANKCLIA [id number] [address] CNPSharlene 03-11-2024 [facility] Telephone ([id number]) KEAGAN ALICIA ([id number]) 4 F Date Time Provider Department 03/11/24 CHANTELLE RODRIGUEZ [id number] During your visit today, we recorded the following information about you: Chantelle Rodriguez RN 03/11/2024 10:56 AM Signed 1st risk assessment form submitted 03/11/2024. 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 Lactobacillus crispatus+gasseri+jense mendoza + Gardnerella vaginalis + Atopobium vaginae rRNA SHYAM+probe Ql (Vag fld) Not detected Not detected [facility] Bacteria Ur Culton Bacteria identified Cx Nom (U) CULTURE, URINE: No growth (<1,000 CFU/ml) Normal [facility] Comment on above: Performed By: #### 6 30-4 ####[facility] LABORATORYCLIA [id number] [place] [address] [place] C. trachomatis+N. gonorrhoea e DNA SHYAM+probe Ql (Unsp spec)on 03-10-2024 C. trachomatis rRNA SHYAM+probe Ql (Unsp spec) Not detected Not detected [facility] Interpretation and review of laboratory results Normal [facility] N. gonorrhoeae rRNA SHYAM+probe Ql (Unsp spec) Not detected Not detected [facility] This FDA-approved assay has been modified to accept rectal swabs self-collected in a healthcare setting. For self-collected rectal swabs, the test was developed and its performance characteristics determined by the [facility]'s [facility] Medicine [place] ([facility]). It has not been cleared or approved by the FDA. -[facility] is regulated under CLIA as qualified to perform high-complexity testing. This test is used for clinical purposes. It should not be regarded as investigational or for research. [facility] ALMITA/TRICHOMONAS NAATon 0 03-10-2024 C. glabrata RNA HSYAM+probe Ql (Vag fld) Not detected Not detected [facility] Almita sp DNA SHYAM+probe Ql (Vag fld) Not detected Not detected [facility] Comment on above: The Almita species group target includes C. albicans, C. tropicalis, C. parapsilosis, and C. dubliniensis. Interpretation and review of laboratory results Normal [facility] T. vaginalis DNA SHYAM+probe Ql (Unsp spec) Not detected Not detected [facility] CBC W Auto Differential pane l (Bld)on 03-10-2024 Basophils (Bld) [#/Vol] 10*3/uL Normal <0.11 A [facility] Comment on above: Order Comment: Speci men Type: BLOOD SPECIMENOrdering Facility: [facility] Address: [address] [place] [address] Performed By: #### 5 7021-8 ####[facility] LABCLIA [id number] [place] [address] [place] Basophils/100 WBC (Bld) 0.4 % Normal A [facility] Comment on above: Order Comment: Speci men Type: BLOOD SPECIMENOrdering Facility: [facility] Address: [address] [place] [address] Performed By: #### 5 7021-8 ####[facility] LABCLIA [id number] [place] [address] [place] Differential cell count method Nom (Bld) Auto Normal [facility] Comment on above: Order Comment: Speci men Type: BLOOD SPECIMENOrdering Facility: [facility] Address: [address] [place] [address] Performed By: #### 5 7021-8 ####[facility] LABCLIA [id number] [place] [address] [place] Eosinophils (Bld) [#/Vol] 10*3/uL Normal <0.46 [facility] Comment on above: Order Comment: Speci men Type: BLOOD SPECIMENOrdering Facility: [facility] [facility] Address: [facility] [place] [address] Performed By: #### 5 7021-8 ####[facility] [place] LABCLIA [id number] [place] [address] [place] Eosinophils/100 WBC (Bld) 0.7 % Normal [facility] Comment on above: Order Comment: Speci men Type: BLOOD SPECIMENOrdering Facility: [facility] Address: [address] [place] [address] Performed By: #### 5 7021-8 ####[facility] [place] LABCLIA [id number] [address] [address] [place] Erythrocyte distribution width (RBC) [Ratio] 13.9 % Normal 11.5-15.0 [facility] Comment on above: Order Comment: Speci men Type: BLOOD SPECIMENOrdering Facility: [facility] Address: [address] [place] [address] Performed By: #### 5 7021-8 ####[facility] [place] LABCLIA [id number] [place] [address] [place] Hematocrit (Bld) [Volume fraction] 38.6 % Normal 36.0-46.0 [facility] Comment on above: Order Comment: Speci men Type: BLOOD SPECIMENOrdering Facility: [facility] Address: [address] [place] [address] Performed By: #### 5 7021-8 ####[facility] [place] LABCLIA [id number] [facility] [place] [address] [place] Hemoglobin (Bld) [Mass/Vol] 12.7 g/dL Normal 11.5-15.5 [facility] Comment on above: Order Comment: Speci men Type: BLOOD SPECIMENOrdering Facility: [facility] Address: [address] [place] [address] Performed By: #### 5 7021-8 ####[facility] [place] LABCLIA [id number] [facility] [place] [address] [place] Immature granulocytes (Bld) [#/Vol] 10*3/uL Normal <0.10 [facility] Comment on above: Order Comment: Speci men Type: BLOOD SPECIMENOrdering Facility: [facility] Address: [address] [place] [address] Performed By: #### 5 7021-8 ####[facility] [place] [facility]CLIA [id number] [place] [address] [facility] Immature granulocytes/100 WBC (Bld) 0.0 % Normal [facility] Comment on above: Order Comment: Speci men Type: BLOOD SPECIMENOrdering Facility: [facility] Address: [address] [place] [address] Performed By: #### 5 7021-8 ####[facility] [place] LABCLIA [id number] [place] [address] [place] [facility] Lymphocytes (Bld) [#/Vol] 0.65 10*3/uL Low 1.00-4.00 [facility] Comment on above: Order Comment: Speci men Type: BLOOD SPECIMENOrdering Facility: [facility] Address: [address] [place] [address] Performed By: #### 5 7021-8 ####[facility] [id number] [place] [address] [facility] Lymphocytes/100 WBC (Bld) 22.9 % Normal [facility] Comment on above: Order Comment: Speci men Type: BLOOD SPECIMENOrdering Facility: [facility] Address: [address] [place] [address] Performed By: #### 5 7021-8 ####[facility] [place] LABCLIA [id number] [place] [address] [place] MCH (RBC) [Entitic mass] 28.9 pg Normal 26.0-34.0 [facility] Comment on above: Order Comment: Speci men Type: BLOOD SPECIMENOrdering Facility: [facility] Address: [address] [place] [address] Performed By: #### 5 7021-8 ####[facility] [place] LABCLIA [id number] [place] [address] [place] [facility] MCHC (RBC) [Mass/Vol] 32.9 g/dL Normal 30.5-36.0 [facility] Comment on above: Order Comment: Speci men Type: BLOOD SPECIMENOrdering Facility: [facility] Address: [address] [place] [address] Performed By: #### 5 7021-8 ####[facility] [place] LABCLIA [id number] [facility] [place] [address] [place] MCV (RBC) [Entitic vol] 87.9 fL Normal 80.0-100.0 A [facility] Comment on above: Order Comment: Speci men Type: BLOOD SPECIMENOrdering Facility: [facility] Address: [address] [place] [address] Performed By: #### 5 7021-8 ####[facility] [place] LABCLIA [id number] [facility] [place] [address] [place] Monocytes (Bld) [#/Vol] 0.35 10*3/uL Normal <0.87 [facility] Comment on above: Order Comment: Speci men Type: BLOOD SPECIMENOrdering Facility: [facility] Address: [address] [place] [address] Performed By: #### 5 7021-8 ####[facility] [place] LABCLIA [id number] [place] [address] [place] Monocytes/100 WBC (Bld) 12.3 % Normal A [facility] Comment on above: Order Comment: Speci men Type: BLOOD SPECIMENOrdering Facility: [facility] Address: [address] [place] [address] Performed By: #### 5 7021-8 ####[facility] [place] LABCLIA [id number] [facility] [place] [address] [place] Neutrophils (Bld) [#/Vol] 1.81 10*3/uL Normal 1.45-7.50 [facility] Comment on above: Order Comment: Speci men Type: BLOOD SPECIMENOrdering Facility: [facility] Address: [address] [place] [address] Performed By: #### 5 7021-8 ####[facility] [place] [facility]CLIA [id number] [facility] [place] [address] [place] Neutrophils/100 WBC (Bld) 63.7 % Normal [facility] Comment on above: Order Comment: Speci men Type: BLOOD SPECIMENOrdering Facility: [facility] Address: [address] [place] [address] Performed By: #### 5 7021-8 ####[facility] [place] LABCLIA [id number] [facility] [place] [address] [place] Nucleated RBC (Bld) [#/Vol] Normal [facility] Comment on above: Order Comment: Speci men Type: BLOOD SPECIMENOrdering Facility: [facility] Address: [address] [place] [address] Performed By: #### 5 7021-8 ####[facility] [place] LABCLIA [id number] [place] [address] [place] Nucleated RBC/100 WBC (Bld) [Ratio] Normal [facility] Comment on above: Order Comment: Speci men Type: BLOOD SPECIMENOrdering Facility: [facility] Address: [address] [place] [address] Performed By: #### 5 7021-8 ####[facility] [place] LABCLIA [id number] [facility] [place] [address] [place] Platelet mean volume (Bld) [Entitic vol] 12.0 fL Normal 9.0-12.7 [facility] Comment on above: Order Comment: Speci men Type: BLOOD SPECIMENOrdering Facility: [facility] Address: [address] [place] [address] Performed By: #### 5 7021-8 ####[facility] [place] LABCLIA [id number] [place] [address] [place] Platelets (Bld) [#/Vol] 140 10*3/uL Low 150-400 [facility] Comment on above: Order Comment: Speci men Type: BLOOD SPECIMENOrdering Facility: [facility] Address: [address] [place] [address] Performed By: #### 5 7021-8 ####[facility] [place] LABCLIA [id number] [place] [address] [facility] RBC (Bld) [#/Vol] 4.39 10*6/uL Normal 3.90-5.20 [facility] Comment on above: Order Comment: Speci men Type: BLOOD SPECIMENOrdering Facility: [facility] Address: [address] [place] [address] Performed By: #### 5 7021-8 ####[facility] [place] LABCLIA [id number] [place] [address] [facility] WBC (Bld) [#/Vol] 2.84 10*3/uL Low 3.70-11.00 [facility] Comment on above: Order Comment: Speci men Type: BLOOD SPECIMENOrdering Facility: [facility] Address: [address] [place] [address] Performed By: #### 5 7021-8 ####[facility] [place] LABCLIA [id number] [place] [address] [facility] Comprehensive metabolic 2000 panelon 03-10-2024 Albumin [Mass/Vol] 4.0 g/dL Normal 3.9-4.9 [facility] Comment on above: Order Comment: Speci men Type: BLOOD SPECIMEN [facility] Address: [address] [place] [address] Performed By: #### 2 4323-8 #### [facility] [place] [facility] CLIA [id number] [address] [place] [address] [facility] ALP [Catalytic activity/Vol] 53 U/L Normal 34-123 [facility] Comment on above: Order Comment: Speci men Type: BLOOD SPECIMEN [facility] Address: [address] [place] [address] Performed By: #### 2 4323-8 #### [facility] [place] [facility] CLIA [id number] [address] [place] [address] [place] ALT With P-5'-P [Catalytic activity/Vol] 21 U/L Normal 7-38 [facility] Comment on above: Order Comment: Speci men Type: BLOOD SPECIMEN [facility] Address: [address] [place] [address] Performed By: #### 2 4323-8 #### [facility] [place] [facility] CLIA [id number] [address] [place] [address] [place] Anion gap [Moles/Vol] 14 mmol/L Normal 8-15 [facility] Comment on above: Order Comment: Speci men Type: BLOOD SPECIMEN [facility] Address: [address] [place] [address] Performed By: #### 2 4323-8 #### [facility] [place] [facility] CLIA [id number] [address] [place] [address] [place] AST With P-5'-P [Catalytic activity/Vol] 22 U/L Normal 13-35 [facility] Comment on above: Order Comment: Speci men Type: BLOOD SPECIMEN [facility] Address: [address] [place] [address] Performed By: #### 2 4323-8 #### [facility] [place] [facility] CLIA [id number] [address] [place] [address] [place] Bilirubin [Mass/Vol] 0.3 mg/dL Normal 0.2-1.3 [facility] Comment on above: Order Comment: Speci men Type: BLOOD SPECIMEN [facility] Address: [address] [place] [address] Performed By: #### 2 4323-8 #### [facility] [place] [facility] CLIA [id number] [address] [place] [address] [place] Calcium [Mass/Vol] 8.7 mg/dL Normal 8.5-10.2 [facility] Comment on above: Order Comment: Speci men Type: BLOOD SPECIMEN [facility] Address: [address] [place] [address] Performed By: #### 2 4323-8 #### [facility] [place] [facility] CLIA [id number] [address] [place] [address] [place] Chloride [Moles/Vol] 98 mmol/L Normal 98-107 [facility] Comment on above: Order Comment: Specdoyle moon Type: BLOOD SPECIMEN [facility] Address: [address] [place] [address] Performed By: #### 2 4323-8 #### [facility] [place] [facility] CLIA [id number] [address] [place] [address] [place] CO2 [Moles/Vol] 21 mmol/L Low 22-30 [facility] Comment on above: Order Comment: Kayli moon Type: BLOOD SPECIMEN [facility] Address: [address] [place] [address] Performed By: #### 2 4323-8 #### [facility] CLIA [id number] [address] OF [facility] Creatinine [Mass/Vol] 0.57 mg/dL Low 0.58-0.96 [facility] Comment on above: Order Comment: Kayli moon Type: BLOOD SPECIMEN [facility] Address: [address] [place] [address] Performed By: #### 2 4323-8 #### [facility] CLIA [id number] [address] Creatinine and Glomerular filtration rate.predicted panel (S/P/Bld) 133 mL/min/1.73m??? Normal >=60 [facility] Comment on above: Order Comment: Speci men Type: BLOOD SPECIMEN [facility] Address: [address] [place] [address] Result Comment: Nick mated Glomerular Filtration Rate [...] GFR. Performed By: #### 2 4323-8 #### [facility] [place] [facility] CLIA [id number] [address] [place] [address] [place] Glucose [Mass/Vol] 77 mg/dL Normal 74-99 [facility] Comment on above: Order Comment: Kayli moon Type: BLOOD SPECIMEN [facility] Address: [address] [place] [address] Result Comment: The [place] [employer] (ADA) provides guidance for cutoff [...] Standards of Medical Care in Diabetes 2016, [place] [employer]. Diabetes Care. 2016.39(Suppl 1). Performed By: #### 2 4323-8 #### [facility] CLIA [id number] [address] [place] [address] [place] Potassium [Moles/Vol] 3.6 mmol/L Low 3.7-5.1 [facility] Comment on above: Order Comment: Kayli moon Type: BLOOD SPECIMEN [facility] Address: [address] [place] [address] Performed By: #### 2 4323-8 #### [facility] [place] [facility] CLIA [id number] [address] [place] [address] [place] Protein [Mass/Vol] 6.4 g/dL Normal 6.3-8.0 [facility] Comment on above: Order Comment: Kayli moon Type: BLOOD SPECIMEN [facility] Address: [address] [place] [address] Performed By: #### 2 4323-8 #### [facility] [place] [facility] CLIA [id number] [address] [place] [address] [place] Sodium [Moles/Vol] 133 mmol/L Low 136-144 [facility] Comment on above: Order Comment: Kayli moon Type: BLOOD SPECIMEN [facility] Address: [address] [place] [address] Performed By: #### 2 4323-8 #### [facility] [place] [facility] CLIA [id number] [address] [place] [address] [place] Urea nitrogen [Mass/Vol] 7 mg/dL Normal 7-21 [facility] Comment on above: Order Comment: Kayli moon Type: BLOOD SPECIMEN [facility] Address: [address] [place] [address] Performed By: #### 2 4323-8 #### [facility] [place] [facility] CLIA [id number] [address] [place], [place] [address] [facility] ED NOTEon 03-10-2024 ED NOTE HNO ID: [id number] Author: MITRA CAMARGO RN Service: ? Author [...] do anything else to help you? No Normal [facility] ED NOTE HNO ID: [id number] Author: ALL MCCOY RN Service: Emergency Medicine Author Type: Registered Nurse Type: ED Notes Filed: 03/10/2024 20:31 Note Text: Patient discharge instructions given to patient. Patient educated on discharge instructions and prescription. Patient denied having questions at this time regarding discharge instructions. Patient discharged home at this time. Normal [facility] ED NOTE HNO ID: [id number] Author: ALL MCCOY RN Service: Emergency Medicine Author Type: Registered Nurse Type: ED Notes Filed: 03/10/2024 19:22 Note Text: ED physician at bedside. [facility] ED NOTE HNO ID: [id number] Author: ALL MCCOY RN Service: Emergency Medicine Author Type: Registered Nurse Type: ED Notes Filed: 03/10/2024 19:07 Note Text: Change of shift report received from Mitra Brown RN. I assume patient care at this time. [facility] ED NOTE HNO ID: [id number] Author: MITRA CAMARGO RN Service: ? Author Type: Registered Nurse Type: ED Notes Filed: 03/10/2024 19:02 Note Text: Report to a kelli mccoy [facility] ED NOTE HNO ID: [id number] Author: MITRA CAMARGO RN Service: ? Author Type: Registered Nurse Type: ED Notes Filed: 03/10/2024 18:13 Note Text: Dr traore at bedside for exam [facility] ED NOTE HNO ID: [id number] Author: MITRA CAMARGO RN Service: ? Author Type: Registered Nurse Type: ED Notes Filed: 03/10/2024 18:10 Note Text: Pt is 9 weeks . Pt is having n/v/d and fever for 3 days. Pt 's other children had similar symptoms. [facility] ED PROV NOTEon 03-10-2024 ED PROV NOTE HNO ID: [id number] Author: JAQUELIN ARTEAGA DO Service: Emergency Medicine [...] HISTORY Procedure Laterality Date CHOLECYSTECTOMY HX 06/17/2023 [facility] IUD REMOVAL 09/15/2023 PT ED HEART [...] not included)... 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 S pyo DNA Throat Ql SHYAM+prob suman 03-10-2024 S. pyogenes DNA SHYAM+probe Ql (Throat) Not detected Normal Not detected [facility] Comment on above: Order Comment: Speci men Type: SWAB [facility] Address: [address] [place] [address] Performed By: #### 6 0489-2 #### [facility] CLIA [id number] [address] STATES OF [facility] Urinalysis complete panel (U )on 03-10-2024 Bacteria LM.HPF (Urine sed) [#/Area] Moderate Abnormal None Seen [facility] Comment on above: Order Comment: Speci men Type: URINE SPECIMEN [facility] Address: [address] [place] [address] Performed By: #### 2 4356-8 #### [facility] CLIA [id number] [address] [place] Bilirubin Ql (U) Negative Normal Negative [facility] Comment on above: Order Comment: Speci men Type: URINE SPECIMEN [facility] Address: [address] [place] [address] Performed By: #### 2 4356-8 #### [facility] [place] [facility] CLIA [id number] [address] [place] [address] [facility] Clarity (Unsp spec) Slightly Cloudy Abnormal Clear [facility] Comment on above: Order Comment: Speci men Type: URINE SPECIMEN [facility] Address: [address] [place] [address] Performed By: #### 2 4356-8 #### [facility] [place] [facility] CLIA [id number] [address] [place] [address] [facility] Color (U) Yellow Normal Yellow [facility] Comment on above: Order Comment: Speci men Type: URINE SPECIMEN [facility] Address: [address] [place] [address] Performed By: #### 2 4356-8 #### [facility] [place] [facility] CLIA [id number] [address] [place] [address] [facility] Epithelial cells LM.HPF (Urine sed) [#/Area] Few Normal [facility] Comment on above: Order Comment: Speci men Type: URINE SPECIMEN [facility] Address: [address] [place] [address] Performed By: #### 2 4356-8 #### [facility] [place] [facility] CLIA [id number] [address] [place] [address] [facility] Glucose Test strip (U) [Mass/Vol] Negative Normal Negative [facility] Comment on above: Order Comment: Speci men Type: URINE SPECIMEN [facility] Address: [address] [place] [address] Performed By: #### 2 4356-8 #### [facility] [place] [facility] CLIA [id number] [address] [place] [id number] [facility] Hemoglobin Ql (U) Trace Abnormal Negative [facility] Comment on above: Order Comment: Speci men Type: URINE SPECIMEN [facility] Address: [address] [place] [address] Performed By: #### 2 4356-8 #### [facility] [place] [facility] CLIA [id number] [address] [place] [address] [place] Ketones Ql (U) 4+ Abnormal Negative [facility] Comment on above: Order Comment: Speci men Type: URINE SPECIMEN [facility] Address: [address] [place] [address] Performed By: #### 2 4356-8 #### [facility] [place] [facility] CLIA [id number] [address] [place] [address] [place] Leukocyte esterase Test strip Ql (U) Negative Normal Negative [facility] Comment on above: Order Comment: Speci men Type: URINE SPECIMEN [facility] Address: [address] [place] [address] Performed By: #### 2 4356-8 #### [facility] [place] [facility] CLIA [id number] [address] [place] [address] [place] Nitrite Ql (U) Negative Normal Negative [facility] Comment on above: Order Comment: Speci men Type: URINE SPECIMEN [facility] Address: [address] [place] [address] Performed By: #### 2 4356-8 #### [facility] [place] [facility] CLIA [id number] [address] [place] [address] [place] pH (U) 6.0 [pH] Normal 5.0-8.0 [facility] Comment on above: Order Comment: Speci men Type: URINE SPECIMEN [facility] Address: [address] [place] [address] Performed By: #### 2 4356-8 #### [facility] [place] [facility] CLIA [id number] [address] [place] [address] [place] Protein (U) [Mass/Vol] 1+ Abnormal Negative [facility] Comment on above: Order Comment: Speci men Type: URINE SPECIMEN [facility] Address: [address] [place] [address] Performed By: #### 2 4356-8 #### [facility] [place] [facility] CLIA [id number] [address] [place] RBC LM.HPF (Urine sed) [#/Area] 3-5 /HPF Abnormal 0-3 /HPF [facility] Comment on above: Order Comment: Speci men Type: URINE SPECIMEN [facility] Address: [address] [place] [address] Performed By: #### 2 4356-8 #### [facility] CLIA [id number] [address] [place] [address] Specific gravity (U) [Rel density] >=1.030 High 1.005-1.030 [facility] Comment on above: Order Comment: Speci men Type: URINE SPECIMEN [facility] Address: [address] [place] [address] Performed By: #### 2 4356-8 #### [facility] CLIA [id number] [address] [place] [address] Urobilinogen Ql (U) 0.2 EU/dL Normal 0.2-1.0 EU/dL [facility] Comment on above: Order Comment: Speci men Type: URINE SPECIMEN [facility] Address: [address] [place] [address] Performed By: #### 2 4356-8 #### [facility] CLIA [id number] [address] WBC LM.HPF (Urine sed) [#/Area] 0-5 /HPF Normal 0-5 /HPF [facility] Comment on above: Order Comment: Speci men Type: URINE SPECIMEN [facility] Address: [address] [place] [address] Performed By: #### 2 4356-8 #### [facility] CLIA [id number] [address] [place] BACTERIAL VAGINOSIS NAATon 0 - Lactobacillus crispatus+gasseri+jense mendoza + Gardnerella vaginalis + Atopobium vaginae rRNA SHYAM+probe Ql (Vag fld) Not detected Normal Not detected [facility] Comment on above: Order Comment: Speci men Type: BLOOD SPECIMEN [facility] Address: [address] [place] [address] Performed By: #### 5 7021-8 #### [facility] CLIA [id number] [address] [place] [address] [place] Bacteria Ur Culton Bacteria identified Cx Nom (U) ORGANISM ID: 1 <10,000 CFU/ml Normal urogenital nicolette Normal [facility] Comment on above: Performed By: #### 6 30-4 ####[facility] [id number] [place] [address] [place] C. trachomatis+N. gonorrhoea e DNA SHYAM+probe Ql (Unsp spec)on 03-09-2024 C. trachomatis rRNA SHYAM+probe Ql (Unsp spec) Not detected Normal Not detected [facility] Comment on above: Order Comment: Speci men Type: BLOOD SPECIMEN Ordering Facility: [facility] Address: [address] [place] [address] Performed By: #### 5 7021-8 #### [facility] CLIA [id number] [address] [place] [address] [place] N. gonorrhoeae rRNA SHYAM+probe Ql (Unsp spec) Not detected Normal Not detected [facility] Comment on above: Order Comment: Speci men Type: BLOOD SPECIMEN Ordering Facility: [facility] Address: [address] [place] [address] Performed By: #### 5 7021-8 #### [facility] CLIA [id number] [address] [place] [address] [place] ALMITA/TRICHOMONAS NAATon 0 03-09-2024 C. glabrata RNA SHYAM+probe Ql (Vag fld) Not detected Normal Not detected [facility] Comment on above: Order Comment: Speci men Type: BLOOD SPECIMEN Ordering Facility: [facility] Address: [address] [place] [address] Performed By: #### 5 7021-8 #### [facility] CLIA [id number] [address] [place] [address] Almita sp DNA SHYAM+probe Ql (Vag fld) Not detected Normal Not detected [facility] Comment on above: Order Comment: Speci men Type: BLOOD SPECIMEN Ordering Facility: [facility] Address: [address] [place] [address] Result Comment: The Almita species group target includes C. albicans, C. tropicalis, C. parapsilosis, and C. dubliniensis. Performed By: #### 5 7021-8 #### [facility] CLIA [id number] [address] [place] [address] T. vaginalis DNA SHYAM+probe Ql (Unsp spec) Not detected Normal Not detected [facility] Comment on above: Order Comment: Speci men Type: BLOOD SPECIMEN Ordering Facility: [facility] Address: [address] [place] [address] Performed By: #### 5 7021-8 #### [facility] CLIA [id number] [address] [place] [address] [place] PAP TESTon 03-09-2024 ADEQUACY Satisfactory for interpretation. Normal [facility] Comment on above: Order Comment: Speci men Type: FLUID SPECIMENOrdering Facility: [facility] Address: [address] [place] [address] Performed By: #### L [id number] ####[facility]ORYCLIA [id number] [place] [address] [place] [facility] [id number] [place] [address] [place] CASE REPORT Normal [facility] Comment on above: Order Comment: Speci men Type: FLUID SPECIMENOrdering Facility: [facility] Address: [address] [place] [address] Result Comment: Gyne cologic Cytology Report Case: [id number] Authorizing Provider: Jaquelin Hi APRN.CNM Collected: 03/09/2024 02:20 PM Ordering Location: OB/Gynecology Received: 03/09/2024 04:49 PM First Screen: Mohorcic, Lianet, CT, ASCP Specimen: Pap Test, ThinPrep, Cervix Performed By: #### L [id number] ####[facility]ORYCLIA [id number] [address] LABCLIA [id number] [place] [address] [place] CLINICAL HISTORY, CYTOLOGY, CABLE STRETCHER AND TESTER Routine Exam Normal [facility] Comment on above: Order Comment: Speci men Type: FLUID SPECIMENOrdering Facility: [facility] Address: [address] [place] [address] Performed By: #### L [id number] ####[facility] LABORATORYCLIA [id number] [address] LABCLIA [id number] [address] STATES OF [facility] FINAL PERFORMING LAB Normal [facility] Comment on above: Order Comment: Speci men Type: FLUID SPECIMENOrdering Facility: [facility] Address: [address] [place] [address] Result Comment: Tech nical component, export freight clerk screening performed at [facility], [address] [id number] CLIA# [id number] Diagnostic interpretation performed at [facility], [address] [id number] CLIA# [id number] Weight Reducing Technician: Kirsten Abad M.D. Performed By: #### L [id number] ####[facility]ORATORYCLIA [id number] [address] LABCLIA [id number] [address] STATES OF [place] INTERPRETATION, CYTOLOGY, CABLE STRETCHER AND TESTER Normal [facility] Comment on above: Order Comment: Speci men Type: FLUID SPECIMENOrdering Facility: [facility] Address: [address] [place] [address] Result Comment: Nega tive for intraepithelial lesion or malignancy. Performed By: #### L [id number] ####[facility]ORATORYCLIA [id number] [address] LABCLIA [id number] [address] OF [facility] 01/07/2024 Normal [facility] Comment on above: Order Comment: Speci men Type: FLUID SPECIMENOrdering Facility: [facility] Address: [address] [place] [address] Performed By: #### L [id number] ####[facility]ATORYCLIA [id number] [address] LABCLIA [id number] [place] [address] [place] PAP DISCLAIMER COMMENT The Pap Smear is a screening test for cervical cancer. False negative results occur with all screening tests, emphasizing the need for rescreening at recommended intervals, and clinical correlation. Normal [facility] Comment on above: Order Comment: Speci men Type: FLUID SPECIMENOrdering Facility: [facility] Address: [address] [place] [address] Performed By: #### L [id number] ####[facility]ATORYCLIA [id number] [address] LABCLIA [id number] [place] [address] [place] PAP MARKET RESEARCH INTERVIEWER COMMENT This specimen has been analyzed by the ThinPrep Imaging System, an automated imaging and review system, which assists the laboratory in evaluating cells on ThinPrep Pap tests. Following automated imaging, selected barnhart from every slide are reviewed by a export freight clerk. Normal [facility] Comment on above: Order Comment: Speci men Type: FLUID SPECIMENOrdering Facility: [facility] Address: [address] [place] [address] Performed By: #### L [id number] ####[facility]ORATORYCLIA [id number] [place] [address] [place] [facility] LABCLIA [id number] [address] STATES [place] POC MATERIAL PREPARATION WORKER ULTRASOUNDon 03-09-19 Radiology Study observation (narrative) [facility] Bacteria identifiedon 2024 Bacteria identified Cx Nom (U) Test: Urine Culture Specimen Source: Clean Catch/Voided Specimen Type: Urine Specimen Date: 02/18/2024 1130 Result Date: 02/20/2024 0935 Result Status: Final result Abnormal: No Resulting Lab: [facility] [address] [address] CULTURE Clinically insignificant growth based on current clinical standards. Normal [facility] Comment on above: Performed By: #### 5 7021-8 #### MELISSA WHITEHEAD ([id number]) [facility] ([facility]) [address] [place] [address] Blood type and Indirect anti body screen panel (Bld)on 02-18-2024 ABO group Nom (Bld) A [facility] Blood group antibody screen Ql Negative [facility] D Ag Ql (Bld) Negative [facility] Review your Rh Negative female patient's potential need for Rh Immune Globulin (RhIg)administration . [facility] ABO group Nom (Bld) A Normal [facility] Comment on above: Order Comment: Venip uncture immediately after or during the administration of Metamizole may lead to falsely low results. Testing should be performed immediately prior to Metamizole dosing. Performed By: #### 3 040-3 #### MELISSA WHITEHEAD ([id number]) [facility] ([facility]) [address] [place] [address] Blood group antibody screen Ql Negative Normal [facility] Comment on above: Order Comment: Venip uncture immediately after or during the administration of Metamizole may lead to falsely low results. Testing should be performed immediately prior to Metamizole dosing. Performed By: #### 3 040-3 #### MELISSA WHITEHEAD ([id number]) [facility] ([facility]) [address] [place] [address] D Ag Ql (Bld) Negative Normal [facility] Comment on above: Order Comment: Venip uncture immediately after or during the administration of Metamizole may lead to falsely low results. Testing should be performed immediately prior to Metamizole dosing. Performed By: #### 3 040-3 #### MELISSA WHITEHEAD ([id number]) [facility] ([facility]) [address] [place] [address] CBC W Auto Differential pane l (Bld)on 02-18-2024 Basophils (Bld) [#/Vol] 0.03 10*3/uL [facility] Basophils/100 WBC (Bld) 0.5 % 0.0 - 2.0 % [facility] Eosinophils (Bld) [#/Vol] 0.05 10*3/uL [facility] Eosinophils/100 WBC (Bld) 0.8 % 0.0 - 6.0 % [facility] Erythrocyte distribution width (RBC) [Ratio] 13.6 % 11.5 - 14.5 % [facility] Hematocrit (Bld) [Volume fraction] 39.8 % 36.0 - 46.0 % [facility] Hemoglobin (Bld) [Mass/Vol] 13.3 g/dL 12.0 - 16.0 g/dL [facility] Immature granulocytes (Bld) [#/Vol] 0.02 10*3/uL [facility] Immature granulocytes/100 WBC (Bld) 0.3 % 0.0 - 0.9 % [facility] Comment on above: Immature Granulocyte Count (IG) includes promyelocytes, myelocytes and metamyelocytes but does not include bands. Percent differential counts (%) should be interpreted in the context of the absolute cell counts (cells/UL). Lymphocytes (Bld) [#/Vol] 1.52 10*3/uL [facility] Lymphocytes/100 WBC (Bld) 23.6 % 13.0 - 44.0 % [facility] MCH (RBC) [Entitic mass] 28.9 pg 26.0 - 34.0 pg [facility] MCHC (RBC) [Mass/Vol] 33.4 g/dL 32.0 - 36.0 g/dL [facility] MCV (RBC) [Entitic vol] 87 fL 80 - 100 fL [facility] Monocytes (Bld) [#/Vol] 0.54 10*3/uL [facility] Monocytes/100 WBC (Bld) 8.4 % 2.0 - 10.0 % [facility] Neutrophils (Bld) [#/Vol] 4.29 10*3/uL [facility] Comment on above: Percent differential counts (%) should be interpreted in the context of the absolute cell counts (cells/uL). Neutrophils/100 WBC (Bld) 66.4 % 40.0 - 80.0 % [facility] Nucleated RBC/100 WBC (Bld) [Ratio] 0 % [facility] Platelets (Bld) [#/Vol] 182 10*3/uL [facility] RBC (Bld) [#/Vol] 4.6 10*6/uL [facility] WBC (Bld) [#/Vol] 6.5 10*3/uL [facility] Basophils (Bld) [#/Vol] 0.03 x10*3/uL Normal 0.00-0.10 [facility] Comment on above: Performed By: #### 3 040-3 #### MELISSA WHITEHEAD ([id number]) [facility] ([facility]) [address] [place] [address] Basophils/100 WBC (Bld) 0.5 % Normal 0.0-2.0 U [facility] Comment on above: Performed By: #### 3 040-3 #### MELISSA WHITEHEAD ([id number]) [facility] ([facility]) [address] [place] [address] Eosinophils (Bld) [#/Vol] 0.05 x10*3/uL Normal 0.00-0.70 [facility] Comment on above: Performed By: #### 3 040-3 #### MELISSA WHITEHEAD ([id number]) [facility] ([facility]) [address] [place] [address] 25478 Eosinophils/100 WBC (Bld) 0.8 % Normal 0.0-6.0 [facility] Comment on above: Performed By: #### 3 040-3 #### MELISSA WHITEHEAD ([id number]) [facility] ([facility]) [address] [place] [address] 98719 Erythrocyte distribution width (RBC) [Ratio] 13.6 % Normal 11.5-14.5 [facility] Comment on above: Performed By: #### 3 040-3 #### MELISSA WHITEHEAD ([id number]) [facility] ([facility]) [address] [place], [place] [address] Hematocrit (Bld) [Volume fraction] 39.8 % Normal 36.0-46.0 [facility] Comment on above: Performed By: #### 3 040-3 #### MELISSA WHITEHEAD ([id number]) [facility] ([facility]) [address] [place] [address] 89309 Hemoglobin (Bld) [Mass/Vol] 13.3 g/dL Normal 12.0-16.0 [facility] Comment on above: Performed By: #### 3 040-3 #### MELISSA WHITEHEAD ([id number]) [facility] ([facility]) [address] [place] [address]7743 Immature granulocytes (Bld) [#/Vol] 0.02 x10*3/uL Normal 0.00-0.70 [facility] Comment on above: Performed By: #### 3 040-3 #### MELISSA WHITEHEAD ([id number]) [facility] ([facility]) [address] [place] [address]7557 Immature granulocytes/100 WBC (Bld) 0.3 % Normal 0.0-0.9 [facility] Comment on above: Result Comment: Betty ture Granulocyte Count (IG) includes promyelocytes, myelocytes and metamyelocytes but does not include bands. Percent differential counts (%) should be interpreted in the context of the absolute cell counts (cells/UL). Performed By: #### 3 040-3 #### MELISSA WHITEHEAD ([id number]) [facility] ([facility]) [address] [place] [address] 908[address] Lymphocytes (Bld) [#/Vol] 1.52 x10*3/uL Normal 1.20-4.80 [facility] Comment on above: Performed By: #### 3 040-3 #### MELISSA WHITEHEAD ([id number]) [facility] ([facility]) [address] [place], [place] [address] Lymphocytes/100 WBC (Bld) 23.6 % Normal 13.0-44.0 [facility] Comment on above: Performed By: #### 3 040-3 #### MELISSA WHITEHEAD ([id number]) [facility] ([facility]) [address] [place] [address] 96831 MCH (RBC) [Entitic mass] 28.9 pg Normal 26.0-34.0 [facility] Comment on above: Performed By: #### 3 040-3 #### MELISSA WHITEHEAD ([id number]) [facility] ([facility]) [address] [place] [address] 77793 MCHC (RBC) [Mass/Vol] 33.4 g/dL Normal 32.0-36.0 [facility] Comment on above: Performed By: #### 3 040-3 #### MELISSA WHITEHEAD ([id number]) [facility] ([facility]) [address] [place] [address] 11336 MCV (RBC) [Entitic vol] 87 fL Normal 80-100 U [facility] Comment on above: Performed By: #### 3 040-3 #### MELISSA WHITEHEAD ([id number]) [facility] ([facility]) [address] [place] [address] 17839 Monocytes (Bld) [#/Vol] 0.54 x10*3/uL Normal 0.10-1.00 [facility] Comment on above: Performed By: #### 3 040-3 #### MELISSA WHITEHEAD ([id number]) [facility] ([facility]) [address] [place] [address] 48965 Monocytes/100 WBC (Bld) 8.4 % Normal 2.0-10.0 [facility] Comment on above: Performed By: #### 3 040-3 #### MELISSA WHITEHEAD ([id number]) [facility] ([facility]) [address] [place] [address] 83578 Neutrophils (Bld) [#/Vol] 4.29 x10*3/uL Normal 1.20-7.70 [facility] Comment on above: Result Comment: Perc ent differential counts (%) should be interpreted in the context of the absolute cell counts (cells/uL). Performed By: #### 3 040-3 #### MELISSA WHITEHEDA ([id number]) [facility] ([facility]) [address] [place] [address] 63844 Neutrophils/100 WBC (Bld) 66.4 % Normal 40.0-80.0 [facility] Comment on above: Performed By: #### 3 040-3 #### MELISSA WHITEHEAD ([id number]) [facility] ([facility]) [address] [place] [address] 93240 Nucleated RBC/100 WBC (Bld) [Ratio] 0.0 /100 WBCs Normal 0.0-0.0 [facility] Comment on above: Performed By: #### 3 040-3 #### MELISSA WHITEHEAD ([id number]) [facility] ([facility]) [address] [place] [address] 04738 Platelets (Bld) [#/Vol] 182 x10*3/uL Normal 150-450 [facility] Comment on above: Performed By: #### 3 040-3 #### MELISSA WHITEHEAD ([id number]) [facility] ([facility]) [address] [place] [address] 89360 RBC (Bld) [#/Vol] 4.60 x10*6/uL Normal 4.00-5.20 [facility] Comment on above: Performed By: #### 3 040-3 #### MELISSA WHITEHEAD ([id number]) [facility] ([facility]) [address] [place] [address] WBC (Bld) [#/Vol] 6.5 x10*3/uL Normal 4.4-11.3 [facility] Comment on above: Performed By: #### 3 040-3 #### MELISSA WHITEHEAD ([id number]) [facility] ([facility]) [address] [place] [address] Choriogonadotropin.beta subu niton 02-18-2024 [place] [address] m[IU]/mL High <5 U [facility] Comment on above: Order Comment: Venip [...] By: #### 3 040-3 #### MELISSA WHITEHEAD ([id number]) [facility] ([facility]) [address] [place] [address] Comprehensive metabolic 2000 panelon 02-18-2024 Albumin BCP dye [Mass/Vol] 4.3 g/dL 3.4 - 5.0 g/dL [facility] ALP [Catalytic activity/Vol] 48 U/L 33 - 110 U/L [facility] ALT With P-5'-P [Catalytic activity/Vol] 14 U/L 7 - 45 U/L [facility] Comment on above: Patients treated wit h Sulfasalazine may generate falsely decreased results for ALT. Anion gap [Moles/Vol] 11 mmol/L 10 - 20 mmol/L [facility] AST With P-5'-P [Catalytic activity/Vol] 14 U/L 9 - 39 U/L [facility] Bilirubin [Mass/Vol] 1 mg/dL 0.0 - 1.2 mg/dL [facility] Calcium [Mass/Vol] 8.8 mg/dL 8.6 - 10. 3 mg/dL [facility] Chloride [Moles/Vol] 104 mmol/L 98 - 107 mmol/L [facility] CO2 [Moles/Vol] 22 mmol/L 21 - 32 mmol/L Unive [facility] Creatinine [Mass/Vol] 0.57 mg/dL 0.50 - 1.05 mg/dL [facility] eGFR - PINF [facility] Comment on above: Calculations of nick mated GFR are performed using the 2020 CKD-EPI Study Refit equation without the race variable for the IDMS-Traceable creatinine methods. https://jasn.asnjournals.org/content/early//ASN.2020 733466 Glucose [Mass/Vol] 64 mg/dL Low 74 - 99 mg/dL Uni [facility] Interpretation and review of laboratory results Abnormal [facility] Potassium [Moles/Vol] 4.2 mmol/L 3.5 - 5.3 mmol/L [facility] Protein [Mass/Vol] 6.7 g/dL 6.4 - 8.2 g/dL [facility] Sodium [Moles/Vol] 133 mmol/L Low 136 - 145 mmol/L [facility] Urea nitrogen [Mass/Vol] 10 mg/dL 6 - 23 mg/dL [facility] Albumin BCP dye [Mass/Vol] 4.3 g/dL Normal 3.4-5.0 [facility] Comment on above: Performed By: #### 3 040-3 #### MELISSA WHITEHEAD ([id number]) [facility] ([facility]) [address] [place] [address] 47053 ALP [Catalytic activity/Vol] 48 U/L Normal 33-110 [facility] Comment on above: Performed By: #### 3 040-3 #### MELISSA WHITEHEAD ([id number]) [facility] ([facility]) [address] [place] [address] ALT With P-5'-P [Catalytic activity/Vol] 14 U/L Normal 7-45 [facility] Comment on above: Result Comment: Gema ents treated with Sulfasalazine may generate falsely decreased results for ALT. Performed By: #### 3 040-3 #### MELISSA WHITEHEAD ([id number]) [facility] ([facility]) [address] [place] [address] Anion gap [Moles/Vol] 11 mmol/L Normal 10-20 [facility] Comment on above: Performed By: #### 3 040-3 #### MELISSA WHITEHEAD ([id number]) [facility] ([facility]) [address] [place] [address] AST With P-5'-P [Catalytic activity/Vol] 14 U/L Normal 9-39 [facility] Comment on above: Performed By: #### 3 040-3 #### MELISSA WHITEHEAD ([id number]) [facility] ([facility]) [address] [place] [address] Bilirubin [Mass/Vol] 1.0 mg/dL Normal 0.0-1.2 [facility] Comment on above: Performed By: #### 3 040-3 #### MELISSA WHITEHEAD ([id number]) [facility] ([facility]) [address] [place] [address] Calcium [Mass/Vol] 8.8 mg/dL Normal 8.6-10.3 [facility] Comment on above: Performed By: #### 3 040-3 #### MELISSA WHITEHEAD ([id number]) [facility] ([facility]) [address] [place] [address] Chloride [Moles/Vol] 104 mmol/L Normal 98-107 [facility] Comment on above: Performed By: #### 3 040-3 #### MELISSA WHITEHEAD ([id number]) [facility] ([facility]) [address] [place] [address] CO2 [Moles/Vol] 22 mmol/L Normal 21-32 [facility] Comment on above: Performed By: #### 3 040-3 #### MELISSA WHITEHEAD ([id number]) [facility] ([facility]) [address] [place] [address] 00274 Creatinine [Mass/Vol] 0.57 mg/dL Normal 0.50-1.05 [facility] Comment on above: Performed By: #### 3 040-3 #### MELISSA WHITEHEAD ([id number]) [facility] ([facility]) [address] [place] [address] 46720 GFR/1.73 sq M.predicted MDRD (S/P/Bld) [Vol rate/Area] mL/min/{1.73_m2} Normal >60 [facility] Comment on above: Result Comment: Calc ulations of estimated GFR are performed using the 2020 CKD-EPI Study Refit equation without the race variable for the IDMS-Traceable creatinine methods. https://jasn.asnjournals.org/content/early//ASN.2020 477855 Performed By: #### 3 040-3 #### MELISSA WHITEHEAD ([id number]) [facility] ([facility]) [address] [place] [address] 24571 Glucose [Mass/Vol] 64 mg/dL Low 74-99 [facility] Comment on above: Performed By: #### 3 040-3 #### MELISSA WHITEHEAD ([id number]) [facility] ([facility]) [address] [place] [address] 44544 Potassium [Moles/Vol] 4.2 mmol/L Normal 3.5-5.3 [facility] Comment on above: Performed By: #### 3 040-3 #### MELISSA WHITEHEAD ([id number]) [facility] ([facility]) [address] [place] [address] 60354 Protein [Mass/Vol] 6.7 g/dL Normal 6.4-8.2 [facility] Comment on above: Performed By: #### 3 040-3 #### MELISSA WHITEHEAD ([id number]) [facility] ([facility]) [address] [place] [address] 60973 Sodium [Moles/Vol] 133 mmol/L Low 136-145 [facility] Comment on above: Performed By: #### 3 040-3 #### MELISSA WHITEHEAD ([id number]) [facility] ([facility]) [address] [place] [address] 12916 Urea nitrogen [Mass/Vol] 10 mg/dL Normal 6-23 [facility] Comment on above: Performed By: #### 3 040-3 #### MELISSA WHITEHEAD ([id number]) [facility] ([facility]) [address] [place] [address] 05064 Glucose Test strip manual (B ld) [Mass/Vol]on 02-18-2024 Glucose [Mass/Vol] 168 mg/dL High 74 - 99 mg/dL [facility] Interpretation and review of laboratory results Abnormal [facility] Glucose [Mass/Vol] 168 mg/dL High 74-99 [facility] Comment on above: Performed By: #### 3 040-3 #### MELISSA WHITEHEAD ([id number]) [facility] ([facility]) [address] [place] [address] 60109 Glucose [Mass/Vol] 54 mg/dL Low 74 - 99 mg/dL [facility] Comment on above: Notified Interpretation and review of laboratory results Abnormal [facility] Glucose [Mass/Vol] 54 mg/dL Low 74-99 [facility] Comment on above: Result Comment: MD Maurice layne Performed By: #### 3 040-3 #### MELISSA WHITEHEAD ([id number]) [facility] ([facility]) [address] [place] [address] 46223 HCG ( test) IA.rapi d Ql (U)Ordered By: Keila Coburn on 02-18-2024 HCG ( test) Ql (U) Positive Abnormal NEGATIVE [facility] Interpretation and review of laboratory results Abnormal [facility] HCG ( test) IA.rapi d Ql (U)on 02-18-2024 HCG ( test) Ql (U) Positive Abnormal NEGATIVE [facility] Comment on above: Performed By: #### 3 040-3 #### TORRES VENTURA ([id number]) [facility] ([facility]) [address] [place] [address] HCG.beta subunit Qnon 2024 Interpretation and review of laboratory results Abnormal [facility] Total HCG measurement is performed using the [employer] Access Immunoassay which detects intact HCG and free beta HCG subunit. This test is not indicated for use as a tumor marker. HCG testing is performed using a different test methodology at [facility] than other [facility]. Direct result comparison should only be made within the same method. [facility] No Panel Informationon 02-17 Interpretation and review of laboratory results Abnormal [facility] US PELVIS OB TRANSABDOMINAL W TRANSVAGINAL [...] (by LMP) 10/13/2024 COMPARISON: None. ACCESSION NUMBER(S): [id number] ORDERING CLINICIAN: EUGENE MCCORMICK TECHNIQUE: Routine ultrasound [...] Samia Valencia 02/18/2024 1:00 PM Dictation workstation: [id number] [facility] US Pelvis transvaginalon 1. Single live intrauterine . 2. Estimated gestational age: 6 weeks 1 days. LUZ: 10/12/2024. 3. Small subchorionic hemorrhage. MACRO: None Signed by: Samia Valencia 02/18/2024 1:00 PM Dictation workstation: [id number] Interpreted By: Samia Valencia, STUDY: US PELVIS OB TRANSABDOMINAL W TRANSVAGINAL UP TO 1ST TRIMESTER 02/18/2024 12:42 pm INDICATION: 23 y/o F with Signs/Symptoms:abd cramping. LMP 01/07/2024 EGA (by LMP) 6 w 0 d LUZ (by LMP) 10/13/2024 COMPARISON: None. ACCESSION NUMBER(S): [id number] ORDERING CLINICIAN: EUGENE MCCORMICK TECHNIQUE: Routine ultrasound [...] (by LMP) 10/13/2024 COMPARISON: None. ACCESSION NUMBER(S): [id number] ORDERING CLINICIAN: EUGENE MCCORMICK TECHNIQUE: Routine ultrasound [...] Samia Valencia 02/18/2024 1:00 PM Dictation workstation: [id number] [facility] Work Phone: Radiology Study observation (narrative) [facility] Work Phone: US Pelvis transvaginalOrdere d By: Samia Valencia on 02-18-2024 [facility] Work Phone: Urinalysis complete W Reflex Culture panel (U)on 02-18-2024 Appearance (U) Turbid Abnormal Clear [facility] Bilirubin (U) [Mass/Vol] Negative NEGATIVE [facility] Color (U) Yellow Light-Yellow, Yellow, Dark-Yellow [facility] Glucose Auto test strip (U) [Mass/Vol] Normal Normal mg/dL [facility] Ketones (U) [Mass/Vol] OVER (4+) Abnormal NEGATIVE mg/d L [facility] Leukocyte esterase Auto test strip Ql (U) 250 Dustin/uL Abnormal NEGATIVE [facility] Nitrite Auto test strip Ql (U) Negative NEGATIVE [facility] pH (U) 6 [pH] 5.0, 5.5, 6.0, 6.5, 7.0, 7.5, 8.0 [facility] Protein (U) [Mass/Vol] 50 (1+) Abnormal NEGAT UNRULY, 10 (TRACE), 20 (TRACE) mg/dL [facility] RBC (U) [#/Vol] Negative NEGATIVE [facility] Specific gravity (U) [Rel density] 1.030 1.005 - 1.035 [facility] Urobilinogen (U) [Mass/Vol] Normal Normal mg/dL [facility] OVER is reported when the result is greater than the clinically reportable range. [facility] Appearance (U) Turbid Normal Clear [facility] Comment on above: Order Comment: Venip uncture immediately after or during the administration of Metamizole may lead to falsely low results. Testing should be performed immediately prior to Metamizole dosing. Performed By: #### 3 040-3 #### TORRES VENTURA ([id number]) [facility] ([facility]) [address] [place] [address] Bilirubin (U) [Mass/Vol] Negative Normal NEGATIVE [facility] Comment on above: Order Comment: Venip uncture immediately after or during the administration of Metamizole may lead to falsely low results. Testing should be performed immediately prior to Metamizole dosing. Performed By: #### 3 040-3 #### MELISSA WHITEHEAD ([id number]) [facility] ([facility]) [address] [place], [place] [address] Color (U) Yellow Normal Light-Yellow, Yellow, Dark-Yellow [facility] Comment on above: Order Comment: Venip uncture immediately after or during the administration of Metamizole may lead to falsely low results. Testing should be performed immediately prior to Metamizole dosing. Performed By: #### 3 040-3 #### MELISSA WHITEHEAD ([id number]) [facility] ([facility]) [address] [place], [place] [address] Glucose Auto test strip (U) [Mass/Vol] Normal Normal Normal [facility] Comment on above: Order Comment: Venip uncture immediately after or during the administration of Metamizole may lead to falsely low results. Testing should be performed immediately prior to Metamizole dosing. Performed By: #### 3 040-3 #### MELISSA WHITEHEAD ([id number]) [facility] ([facility]) [address] [place] [address] 34659 Ketones (U) [Mass/Vol] OVER (4+) Abnormal NEGATIVE [facility] Comment on above: Order Comment: Venip uncture immediately after or during the administration of Metamizole may lead to falsely low results. Testing should be performed immediately prior to Metamizole dosing. Performed By: #### 3 040-3 #### MELISSA WHITEHEAD ([id number]) [facility] ([facility]) [address] [place], [place] [address] Leukocyte esterase Auto test strip Ql (U) 250 Dustin/uL Abnormal NEGATIVE [facility] Comment on above: Order Comment: Venip uncture immediately after or during the administration of Metamizole may lead to falsely low results. Testing should be performed immediately prior to Metamizole dosing. Performed By: #### 3 040-3 #### MELISSA WHITEHEAD ([id number]) [facility] ([facility]) [address] [place] [address] 17060 Nitrite Auto test strip Ql (U) Negative Normal NEGATIVE [facility] Comment on above: Order Comment: Venip uncture immediately after or during the administration of Metamizole may lead to falsely low results. Testing should be performed immediately prior to Metamizole dosing. Performed By: #### 3 040-3 #### MELISSA WHITEHEAD ([id number]) [facility] ([facility]) [address] [place] [address] 76495 pH (U) 6.0 [pH] Normal 5.0, 5.5, 6.0, 6.5, 7.0, 7.5, 8.0 [facility] Comment on above: Order Comment: Venip uncture immediately after or during the administration of Metamizole may lead to falsely low results. Testing should be performed immediately prior to Metamizole dosing. Performed By: #### 3 040-3 #### MELISSA WHITEHEAD ([id number]) [facility] ([facility]) [address] [place] [address] 14471 Protein (U) [Mass/Vol] 50 (1+) Abnormal NEGAT UNRULY, 10 (TRACE), 20 (TRACE) [facility] Comment on above: Order Comment: Venip uncture immediately after or during the administration of Metamizole may lead to falsely low results. Testing should be performed immediately prior to Metamizole dosing. Performed By: #### 3 040-3 #### MELISSA WHITEHEAD ([id number]) [facility] ([facility]) [address] [place] [address] 34532 RBC (U) [#/Vol] Negative Normal NEGATIVE [facility] Comment on above: Order Comment: Venip uncture immediately after or during the administration of Metamizole may lead to falsely low results. Testing should be performed immediately prior to Metamizole dosing. Performed By: #### 3 040-3 #### MELISSA WHITEHEAD ([id number]) [facility] ([facility]) [address] [place] [address] 65174 Specific gravity (U) [Rel density] 1.030 Normal 1.005-1.035 [facility] Comment on above: Order Comment: Venip uncture immediately after or during the administration of Metamizole may lead to falsely low results. Testing should be performed immediately prior to Metamizole dosing. Performed By: #### 3 040-3 #### MELISSA WHITEHEAD ([id number]) [facility] ([facility]) [address] [place] [address] Urobilinogen (U) [Mass/Vol] Normal Normal Normal [facility] Comment on above: Order Comment: Venip uncture immediately after or during the administration of Metamizole may lead to falsely low results. Testing should be performed immediately prior to Metamizole dosing. Performed By: #### 3 040-3 #### MELISSA WHITEHEAD ([id number]) [facility] ([facility]) [address] [place] [address] Urinalysis microscopic panel Auto Ql (U)on 02-18-2024 Bacteria Auto (Urine sed) [#/Area] 1+ Abnormal NONE SEEN /HPF [facility] Epithelial cells.squamous Auto (Urine sed) [#/Area] 10-25 (FEW) Reference range not established. /HPF [facility] Mucus Auto (Urine sed) [#/Area] 2+ Reference range not established. /LPF [facility] RBC Auto (Urine sed) [#/Area] 3-5 NONE, 1-2, 3-5 /HPF [facility] WBC Auto (Urine sed) [#/Area] >50 Abnormal 1-5, NONE /HPF [facility] Bacteria Auto (Urine sed) [#/Area] 1+ /HPF Abnormal NONE SEEN [facility] Comment on above: Performed By: #### 3 040-3 #### MELISSA WHITEHEAD ([id number]) [facility] ([facility]) [address] [place] [address] Epithelial cells.squamous Auto (Urine sed) [#/Area] 10-25 (FEW) Normal Reference range not established. [facility] Comment on above: Performed By: #### 3 040-3 #### MELISSA WHITEHEAD ([id number]) [facility] ([facility]) [address] [place] [address] Mucus Auto (Urine sed) [#/Area] 2+ /LPF Normal Reference range not established. [facility] Comment on above: Performed By: #### 3 040-3 #### MELISSA WHITEHEAD ([id number]) [facility] ([facility]) [address] [place] [address] RBC Auto (Urine sed) [#/Area] 3-5 Normal NONE, 1-2, 3-5 [facility] Comment on above: Performed By: #### 3 040-3 #### MELISSA WHITEHEAD ([id number]) [facility] ([facility]) [address] [place] [address] WBC Auto (Urine sed) [#/Area] >50 Abnormal 1-5, NONE [facility] Comment on above: Performed By: #### 3 040-3 #### MELISSA WHITEHEAD ([id number]) [facility] ([facility]) [address] [place] [address] hCG, quantitative, on 02-18-2024 [place] [address] m[IU]/mL [facility] Comment on above: Low-level positive H CG [...] Q-T Interval 388 QTC Calculation(Bazett) 412 P [place] 33 R [place] 86 T [place] 48 QRS Count 11 Q Onset 222 P Onset 152 P Offset 195 T Offset 416 QTC Fredericia 404 Diagnosis Normal sinus rhythm Normal ECG When compared with ECG of 03-OCT-2023 06:45, No significant change was found Confirmed by Ramiro Hugo ([id number]) on 02/02/2024 6:20:23 PM Normal [facility] CNOVon 12-26-2023 CNOV Office Visit (AGFAMPLE) KEAGAN ALICIA ([id number]) 4 F Date Time Provider Department 12/26/23 10:00 AM RACHELL AMADOR During your visit today, we recorded the following information about you: Temperature Pulse Respiration Blood pressure 98 degrees 52/minute 16/minute 122/62 Weight Height 56.2 kg 1.6 m Rachell Amador APRN.BLOOD TESTER FOWL 12/26/2023 11:34 [place] [address] Date of Evaluation: 12/26/2023 Patient Name: Keagan [...] HISTORY Procedure Laterality Date CHOLECYSTECTOMY HX 06/17/2023 [facility] IUD REMOVAL 09/15/2023 PT ED HEART [...] fld) Negative Normal Negative for bacterial vaginosis [facility] Comment on above: Order Comment: Speci men Type: SWABOrdering Facility: [facility] Address: [address] [place] [address] Performed By: #### C VTV, BVAMP ####[facility] [id number] [place] [address] [place] C. trachomatis+N. gonorrhoea e DNA SHYAM+probe Ql (Unsp spec)on 11-24-2023 C. trachomatis rRNA SHYAM+probe Ql (Unsp spec) Negative Normal Negative for Chlamydia trachomatis by amplificaton [facility] Comment on above: Order Comment: Speci men Type: SWABOrdering Facility: [facility] Address: [address] [place] [address] Performed By: #### 3 6902-5 ####[facility] [id number] [place] [address] [place] N. gonorrhoeae rRNA SHYAM+probe Ql (Unsp spec) Negative Normal Negative for Neisseria gonorrhoeae by amplification [facility] Comment on above: Order Comment: Speci men Type: SWABOrdering Facility: [facility] Address: [address] [place] [address] Performed By: #### 3 6902-5 ####[facility] [id number] [place] [address] [place] ALMITA/TRICHOMONAS NAATon 1 C. glabrata RNA SHYAM+probe Ql (Vag fld) Negative Normal Negative for Almita glabrata [facility] Comment on above: Order Comment: Speci men Type: SWABOrdering Facility: [facility] Address: [address] [place] [address] Performed By: #### C VTV, BVAMP ####[facility] [id number] [address] [place] Almita sp DNA SHYAM+probe Ql (Vag fld) Negative Normal Negative for Almita species [facility] Comment on above: Order Comment: Speci men Type: SWABOrdering Facility: [facility] Address: [address] [place] [address] Performed By: #### C VTV, BVAMP ####[facility] [id number] [place] [address] [place] T. vaginalis DNA SHYAM+probe Ql (Unsp spec) Negative Normal Negative for Trichomonas vaginalis by amplification [facility] Comment on above: Order Comment: Speci men Type: SWABOrdering Facility: [facility] Address: [address] [place] [address] Performed By: #### C VTV, BVAMP ####[facility] [id number] [place] [address] [place] CNOVon 11-24-2023 CNOV Office Visit (OBGYWM) KEAGAN ALICIA ([id number]) 4 F Date Time Provider Department 11/24/23 12:45 PM SANDRA COLE OBGYWM During your visit today, we recorded the following information about you: Blood pressure Weight Last Period 118/64 54.4 kg 11/18/23 Sandra Cole, BOND TRADER.BLOOD TESTER FOWL 11/24/2023 1:09 PM 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 Keagan Alicia is a 23 year old [...] Births2 Comment: No DANDCs for missed abs Manager Part History LMP: 09/15/2023 (Exact Date), Having periods Age at Menarche: Age at First : Age at Menopause: Manager Part History Comments: Sexual Activity: Yes; Male Contraception: Pill PAST MEDICAL HISTORY Diagnosis Date Anemia Chronic tonsillitis Depression 10/08/2016 Gall stone 07/2022 cholecystectomy after delivery GERD (gastroesophageal reflux disease) Hemorrhoids History of back problems Kidney stones Paroxysmal SVT (supraventricular tachycardia) ([facility]) Postoperative pulmonary embolism ([facility]) 06/2023 Psychiatric disorder depression, anxiety and PTSD PAST SURGICAL HISTORY Procedure Laterality Date CHOLECYSTECTOMY HX 06/17/2023 [facility] IUD REMOVAL 09/15/2023 TONSILLECTOMY HX FAMILY [...] discussed with the Patient or Patient's Authorized Women'S Ministry Director. As applicable, any other physician, advance practice provider, medical student, or other health professional student that will be observing or involved in the sensitive examination for educational or training purposes was discussed with the Patient or Authorized Women'S Ministry Director. The Patient or Authorized Women'S Ministry Director has agreed to proceed with the sensitive examination. (Sensitive examination includes inspection and/or palpation of the breasts, pelvis, prostate and anorectal regions). EXAM: LMP 09/15/2023 GENERAL: pleasant, female in no apparent distress HEENT: Normocephalic, atraumatic, mucus membranes moist, and no lesions CHEST: Normal inspiratory effort ABDOMEN: soft, non-tender, and no masses PELVIC: external genitalia normal, normal Bartholin's glands, urethra, [place]'s glands, no vulvar lesions, no cervical lesions, good vaginal support, physiologic discharge present, normal appearing perineal body and perianal region BIMANUAL: deferred NEURO: alert and oriented x3,exam grossly non-focal EXTREMITIES: normal ASSESSMENT/PLAN: 1. Vaginal discharge - ICD9: 623.5, ICD10: N89.8 Will notify patient of test results. - ALMITA/TRICHOMONAS NAAT - BACTERIAL VAGINOSIS NAAT - GONORRHEA/CHLAMYDIA NAAT If results are negative recommend vaginal pH boat carpenter mechanic. Sandra Cole APRN.ULISSES Medical Decision Making: Problems: Moderate: New problem with uncertain prognosis Data: Unique test(s) ordered: 3+ Risk: Low: Low risk from testing/treatment Medical Decision Making Level: 4 - Moderate Allergies As of Date: 11/24/2023 Noted Allergy Reaction LATEX 07/02/2023 9 - Itching Date Reviewed: 09/29/2023 Reviewed by: Seema Bowman RN - Fully Assessed Reason for Visit: (more content not included)... Normal [facility] HISTORY PHYSICALon HISTORY PHYSICAL HNO ID: [id number] Author: FAIZA MISHRA APRN.ULISSES Service: ? Author [...] postoperative status. LABS BASIC METABOLIC PANEL Order: [id number] Component Ref Range AND Units 2 wk [...] the IDMS-Traceable creatinine methods. https://jasn.asnjour nals.org/content/ear ly//ASN.20 76578318 Calcium 8.6 - 10.3 mg/dL 9.2 ntains abnormal data COMPLETE BLOOD COUNT Order: [id number] Component Ref Range AND Units 2 wk [...] Abs Lymph 1.00 - 4.00 k/uL 1.48 Slope% % 10.7 Abs Slope <0.87 k/uL 0.38 Eosin% % 0.3 Abs [...] stones No date: Paroxysmal SVT (supraventricular tachycardia) ([facility]) 06/2023: Postoperative pulmonary embolism ([facility]) No date: Psychiatric disorder Comment: depression, anxiety and PTSD PAST SURGICAL HISTORY 06/17/2023: CHOLECYSTECTOMY HX Comment: [facility] 09/15/2023: IUD REMOVAL No date: TONSILLECTOMY HX FAMILY HISTORY Problem Relation Age of Onset other (migraines) Mother None Father Ovarian cancer Maternal Grandmother Anesthesia Problems No Family History Social History Tobacco Use Smoking status: Never Passive exposure: Yes Smokeless tobacco: Never Tobacco comments: Vapes Vaping Use Vaping status: current everyday user Substances: Nicotine, Flavor (more content not included)... Normal [facility] ECG 12 lead Aysha Atrial Rate 69 BPM [facility] Work Phone: P [place] 44 degrees [facility] Work Phone: [phone] P Offset 190 ms [facility] Work Phone: [phone] P Onset 153 ms [facility] Work Phone: [phone] [place] Interval 134 ms [facility] Work Phone: [phone] Q Onset 220 ms [facility] Work Phone: [phone] QRS Count 11 beats [facility] Work Phone: [phone] QRS Duration 82 ms [facility] Work Phone: [phone] QT Interval 392 ms [facility] Work Phone: [phone] QTC Calculation(Bazett) 420 ms U [facility] Work Phone: [phone] QTC [place]eric[place] 410 ms [facility] Work Phone: [phone] R [place] 87 degrees [facility] Work Phone: T [place] 52 degrees [facility] Work Phone: [phone] T Offset 416 ms [facility] Work Phone: [phone] Ventricular Rate 69 BPM [facility] Work Phone: [phone] Normal sinus rhythm Normal ECG When compared with ECG of 21-JUN-2023 08:13, Nonspecific T wave abnormality no longer evident in Inferior leads Confirmed by Ramiro Hugo ([id number]) on 10/03/2023 2:39:06 PM MUSE Ramiro Hugo MD - 10/03/2023 Normal sinus rhythm Normal ECG When compared with ECG of 21-JUN-2023 08:13, Nonspecific T wave abnormality no longer evident in Inferior leads Confirmed by Ramiro Hugo ([id number]) on 10/03/2023 2:39:06 PM [facility] Work Phone: [facility] Work Phone: ECG 12-LEADon 10-03-2023 ECG 12-LEAD Ventricular Rate 69 Atrial Rate 69 P-R Interval 134 QRS Duration 82 Q-T Interval 392 QTC Calculation(Bazett) 420 P [place] 44 R [place] 87 T [place] 52 QRS Count 11 Q Onset 220 P Onset 153 P Offset 190 T Offset 416 QTC Fredericia 410 Diagnosis Normal sinus rhythm Normal ECG When compared with ECG of 21-JUN-2023 08:13, Nonspecific T wave abnormality no longer evident in Inferior leads Confirmed by Ramiro Hugo ([id number]) on 10/03/2023 2:39:06 PM Normal [facility] Electrophysiology studyon Table formatting from the original result was not included. Supraventricular tachycardia ablation Procedures SVT Ablation (48460), Induction Post IV Drug Infusion (20756), 3D Mapping (38860), Ultrasound Guided vascular access (03956) Patient history: Please refer to the detailed [...] monitored anesthesia care (administered and monitored by phlebotomy support tech and WELL HEAD PUMPER). The bilateral femoral vein was accessed x [...] baseline heart rate QRS: 82ms, QT 392ms, [place] 134ms, RR 870ms RA activation: High-to-low CS [...] symptoms, or recent severe chest pain) call [place]: [phone] See complete procedural log and parameters. SYNGO_SECTRA _CARDIOLAB_X PER [facility] Work Phone: Glucose Test strip manual (B ld) [Mass/Vol]on 10-03-2023 Glucose [Mass/Vol] 156 mg/dL High 74 - 99 mg/dL [facility] Interpretation and review of laboratory results Abnormal [facility] Glucose [Mass/Vol] 156 mg/dL High 74-99 [facility] Comment on above: Performed By: #### 2 341-6 #### LILI DE DIOS ([id number]) [facility] ([facility]) [address] [place] [address] Basic metabolic 2000 panelon 09-26-2023 Anion gap [Moles/Vol] 11 mmol/L Normal 10-20 [facility] Comment on above: Performed By: #### 2 4321-2 #### MELISSA WHITEHEAD ([id number]) [facility] ([facility]) [address] [place] [address] Calcium [Mass/Vol] 9.2 mg/dL Normal 8.6-10.3 [facility] Comment on above: Performed By: #### 2 4321-2 #### MELISSA WHITEHEAD ([id number]) [facility] ([facility]) [address] [place] [address] Chloride [Moles/Vol] 104 mmol/L Normal 98-107 [facility] Comment on above: Performed By: #### 2 4321-2 #### MELISSA WHITEHEAD ([id number]) [facility] ([facility]) [address] [place] [address] CO2 [Moles/Vol] 26 mmol/L Normal 21-32 [facility] Comment on above: Performed By: #### 2 4321-2 #### MELISSA WHITEHEAD ([id number]) [facility] ([facility]) [address] [place] [address] Creatinine [Mass/Vol] 0.68 mg/dL Normal 0.50-1.05 [facility] Comment on above: Performed By: #### 2 4321-2 #### MELISSA WHITEHEAD ([id number]) [facility] ([facility]) [address] [place] [address] GFR/1.73 sq M.predicted MDRD (S/P/Bld) [Vol rate/Area] mL/min/{1.73_m2} Normal >60 [facility] Comment on above: Result Comment: Calc ulations of estimated GFR are performed using the 2020 CKD-EPI Study Refit equation without the race variable for the IDMS-Traceable creatinine methods. https://jasn.asnjournals.org/content/early/ASN.2020 447986 Performed By: #### 2 4321-2 #### MELISSA WHITEHEAD ([id number]) [facility] ([facility]) [address] [place] [address]32 Glucose [Mass/Vol] 84 mg/dL Normal 74-99 [facility] Comment on above: Performed By: #### 2 4321-2 #### MELISSA WHITEHEAD ([id number]) [facility] ([facility]) [address] [place] [address] Potassium [Moles/Vol] 4.2 mmol/L Normal 3.5-5.3 [facility] Comment on above: Performed By: #### 2 4321-2 #### MELISSA WHITEHEAD ([id number]) [facility] ([facility]) [address] [place] [address]86 Sodium [Moles/Vol] 137 mmol/L Normal 136-145 [facility] Comment on above: Performed By: #### 2 4321-2 #### MELISSA WHITEHEAD ([id number]) [facility] ([facility]) [address] [place] [address]35 Urea nitrogen [Mass/Vol] 14 mg/dL Normal 6-23 [facility] Comment on above: Performed By: #### 2 4321-2 #### MELISSA WHITEHEAD ([id number]) [facility] ([facility]) [address] [place] [address] 72968 Beta 2 glycoprotein 1 Ab IgA and IgG and IgM panel (S)on 09-26-2023 Beta 2 glycoprotein 1 IgA Qn (S) <0.6 Normal <20.0 [facility] Comment on above: Result Comment: Elev [...] By: #### 5 6152-2 #### JASON Baker ([id number]) [facility] ([facility]) [address] [place], [place] [address] Beta 2 glycoprotein 1 IgG Qn (S) <1.4 Normal <20.0 [facility] Comment on above: Result Comment: Elev ated levels of IgG anti-Beta 2 Glycoprotein-I on 2 occasions at least 12 weeks apart are laboratory criteria for anti-phospholipid syndrome according to an international consensus (J Thromb Haemost 2006 4:295). Performed By: #### 5 6152-2 #### JASON Baker ([id number]) [facility] ([facility]) [address] [place], [place] [address] Beta 2 glycoprotein 1 IgM Qn (S) 0.2 U/mL Normal <20.0 [facility] Comment on above: Result Comment: Elev [...] By: #### 5 6152-2 #### JASON Baker ([id number]) [facility] ([facility]) [id number] [place] [address] CBC panel Auto (Bld)on 09-25 Erythrocyte distribution width (RBC) [Ratio] 13.2 % Normal 11.5-14.5 [facility] Comment on above: Performed By: #### 5 8410-2 #### MELISSA WHITEHEAD ([id number]) [facility] ([facility]) [address] [place] [address] Hematocrit (Bld) [Volume fraction] 41.6 % Normal 36.0-46.0 [facility] Comment on above: Performed By: #### 5 8410-2 #### MELISSA WHITEHEAD ([id number]) [facility] ([facility]) [address] [place] [address] 01014 Hemoglobin (Bld) [Mass/Vol] 12.9 g/dL Normal 12.0-16.0 [facility] Comment on above: Performed By: #### 5 8410-2 #### MELISSA WHITEHEAD ([id number]) [facility] ([facility]) [address] [place] [address] 04704 MCH (RBC) [Entitic mass] 27.7 pg Normal 26.0-34.0 [facility] Comment on above: Performed By: #### 5 8410-2 #### MELISSA WHITEHEAD ([id number]) [facility] ([facility]) [address] [place] [address]449 MCHC (RBC) [Mass/Vol] 31.0 g/dL Low 32.0-36.0 [facility] Comment on above: Performed By: #### 5 8410-2 #### MELISSA WHITEHEAD ([id number]) [facility] ([facility]) [address] [place] [address] 93943 MCV (RBC) [Entitic vol] 90 fL Normal 80-[address] [facility] Comment on above: Performed By: #### 5 8410-2 #### MELISSA WHITEHEAD ([id number]) [facility] ([facility]) [address] [place] [address] 23850 Nucleated RBC/100 WBC (Bld) [Ratio] 0.0 /100 WBCs Normal 0.0-0.0 [facility] Comment on above: Performed By: #### 5 8410-2 #### MELISSA WHITEHEAD ([id number]) [facility] ([facility]) [address] [place] [address] Platelets (Bld) [#/Vol] 240 x10*3/uL Normal 150-450 [facility] Comment on above: Performed By: #### 5 8410-2 #### MELISSA WHITEHEAD ([id number]) [facility] ([facility]) [facility] [place] [address] RBC (Bld) [#/Vol] 4.65 x10*6/uL Normal 4.00-5.20 [facility] Comment on above: Performed By: #### 5 8410-2 #### MELISSA WHITEHEAD ([id number]) [facility] ([facility]) [address] [place] [address] 04293 WBC (Bld) [#/Vol] 6.9 x10*3/uL Normal 4.4-11.3 [facility] Comment on above: Performed By: #### 5 8410-2 #### MELISSA WHITEHEAD ([id number]) [facility] ([facility]) [address] [place] [address] 51406 Cardiolipin Ab IA Qn (S)on 0 09-26-2023 Cardiolipin IgA Qn <0.5 Normal <20.0 [facility] Comment on above: Result Comment: Elev ated levels of IgA anti-cardiolipin have not been included in the laboratory criteria for anti-phospholipid syndrome according to an international consensus (J Thromb Haemost 2006 4:295). It may be helpful in identifying subgroups of patients at risk for specific clinical manifestations of anti-phospholipid syndrome. Performed By: #### 3 180-7 #### JASON Baker ([id number]) [facility] ([facility]) [address] [place] [address] Cardiolipin IgG IA Qn (S) <1.6 Normal <20.0 [facility] Comment on above: Result Comment: Elev ated levels of IgG anti-cardiolipin on 2 occasions at least 12 weeks apart are laboratory criteria for anti-phospholipid syndrome according to an international consensus (J Thromb Haemost 2006 4:295). Performed By: #### 3 180-7 #### JASON Baker ([id number]) [facility] ([facility]) [address] [place] [address] Cardiolipin IgM IA Qn (S) 0.3 MPL U/mL Normal <20.0 [facility] Comment on above: Result Comment: Elev [...] By: #### 3 180-7 #### JASON Baker ([id number]) [facility] ([facility]) [address] [place] [address] Coagulation dilute Elio v iper venom induced/Coagulation dilute Elio viper venom induced.excess phospholipid^post DOAC neutralization^normalizedon 09-26-2023 Coagulation dilute Elio viper venom induced/Coagulation dilute Elio viper venom induced.excess phospholipid^^normalize d 0.99 RATIO Normal [facility] Comment on above: Performed By: #### 9 7641-5 #### JASON Baker ([id number]) [facility] ([facility]) [address] [place] [address] Coagulation dilute Elio viper venom induced/Coagulation dilute Elio viper venom induced.excess phospholipid^post DOAC neutralization^normaliz ed 0.90 RATIO Normal <=1.20 [facility] Comment on above: Performed By: #### 9 7641-5 #### JASON Baker ([id number]) [facility] ([facility]) [address] [place] [address]321 dRVVT/dRVVT.excess phospholipid Coag (PPP) [Ratio] 0.89 RATIO Normal [facility] Comment on above: Performed By: #### 9 7641-5 #### JASON Baker ([id number]) [facility] ([facility]) [address] [place] [address]2101 F5 gene p.Avr946Smg Molgen Q l (Bld/Tiss)on 09-26-2023 FACTOR V LEIDEN INTERPRETATION SEE COMMENT Normal [facility] Comment on above: Result Comment: INTE [...] that such approval is not necessary. The [facility] is CAP accredited and certified under the Clinical Laboratory Improvement Amendments of 1988 (CLIA-88) as qualified to perform high complexity testing. Performed By: #### 2 1668-9 #### VANNA GROSS ([id number]) [facility] ([facility]) [address] [place] [address] FACTOR V LEIDEN RESULT Normal Normal Normal [facility] Comment on above: Performed By: #### 2 1668-9 #### VANNA GROSS ([id number]) [facility] ([facility]) [address] [place] [address] Fibrin D-dimer FEUon 024 Fibrin D-dimer FEU (PPP) [Mass/Vol] <215 Normal <=500 [facility] Comment on above: Order Comment: The V TE Exclusion D-Dimer assay is reported in ng/mL Fibrinogen Equivalent Units (FEU). Per gastroenterology physician's instructions for use, a value of less [...] By: #### 4 8065-7 #### TORRES VENTURA ([id number]) [facility] ([facility]) [address] [place] [address] PROTHROMBIN GENE MUTATION AN ALYSISon 09-26-2023 ELECTRONICALLY SIGNED BY Odalis Hensley MD PhD [facility] Normal [facility] Comment on above: Performed By: #### G PRO2 #### VANNA GROSS ([id number]) [facility] ([facility]) [address] [place] [address] Performed By: #### 2 1668-9 #### VANNA GROSS ([id number]) [facility] ([facility]) [address] [place] [address] FACTOR II-PROTHROMBIN INTERPRETATION SEE COMMENT Normal [facility] Comment on above: Result Comment: INTE RPRETATION NORMAL result indicates there is no detection of Prothrombin (F2) c.*97G>A (H47189N) pathogenic variant. There would not be increased risk for thrombosis that is associated with this mutation. METHODOLOGY DNA was extracted from the specimen provided and analyzed using allele-specific TaqMan MGB probes following PCR. DISCLAIMER This laboratory developed test was developed and its analytical performance characteristics have been determined by [facility]. This test has not been cleared or approved by the FDA; however, the FDA has determined that such approval is not necessary. The [facility] is CAP accredited and certified under the Clinical Laboratory Improvement Amendments of 1988 (CLIA-88) as qualified to perform high complexity testing. Performed By: #### G PRO2 #### VANNA GROSS ([id number]) [facility] ([facility]) [address] [place] [address] FACTOR II-PROTHROMBIN RESULT Normal Normal Normal [facility] Comment on above: Performed By: #### G PRO2 #### VANNA GROSS ([id number]) [facility] ([facility]) [address] [place] [address] CBC panel Auto (Bld)on 09-17 Erythrocyte distribution width (RBC) [Ratio] 13.3 % 11.5 - 15.0 % [facility] Hematocrit (Bld) [Volume fraction] 41.3 % 36.0 - 46.0 % [facility] Hemoglobin (Bld) [Mass/Vol] 13.5 g/dL 11.5 - 15.5 g/dL [facility] Interpretation and review of laboratory results Normal [facility] MCH (RBC) [Entitic mass] 28.3 pg 26.0 - 34.[address] [facility] MCHC (RBC) [Mass/Vol] 32.7 g/dL 30.5 - 36.0 g/dL [facility] MCV (RBC) [Entitic vol] 86.6 fL 80.0 - 100.[address] [facility] Nucleated RBC (Bld) [#/Vol] NINF [facility] Platelet mean volume (Bld) [Entitic vol] 11.9 fL 9.0 - 12.[address] [facility] Platelets (Bld) [#/Vol] 188 10*3/uL [facility] RBC (Bld) [#/Vol] 4.77 10*6/uL 3.90 - 5.2 0 m/uL [facility] WBC (Bld) [#/Vol] 4.15 10*3/uL [facility] ANES POSTPROC EVALon 024 ANES POSTPROC EVAL HNO ID: [id number] Author: JOHANNA LAN MD Service: Anesthesiology Author Type: Physician Type: Anesthesia Postprocedure Evaluation Filed: 09/15/2023 11:56 Note Text: POST ANESTHESIA EVALUATION NOTE : 2000 Procedure Summary Date: 09/15/23 Room / Location: [facility] OR01 / [facility] Anesthesia Start: 832 Anesthesia Stop: 924 [...] September 15, 2023 TIME: 11:56 AM CSN: [id number] [facility] ANES PRE-OPon 09-15-2023 ANES PRE-OP HNO ID: [id number] Author: JOHANNA LAN MD Service: Anesthesiology Author Type: Physician Type: Anesthesia Preprocedure Evaluation Filed: 09/15/2023 07:22 Note Text: ANESTHESIOLOGY DAY OF SURGERY NOTE : 2000 Procedure Information Date/Time: 09/15/23829 Procedures: LAPAROSCOPY DIAGNOSTIC (Abdomen) REMOVAL INTRAUTERINE DEVICE Location: [facility] OR01 / [place] Surgeons: Mary Jo Chance MD Estimated [...] and consent discussed: yes. Patient / Responsible Democrat agrees to proceed: yes Patient / Surrogate [...] September 15, 2023 TIME: 7:22 AM CSN: [id number] [facility] OPERATIVE NOon 09-15-2023 OPERATIVE NO HNO ID: [id number] Author: MARY JO CHANCE MD Service: Obstetrics Author Type: Physician Type: Operative Report Filed: 09/15/2023 10:07 Note Text: CABLE STRETCHER AND TESTER OPERATIVE/PROCEDURE REPORT LOG ID: [id number] Surgery/Procedure Date: 09/15/2023 Incision/Procedure Start Time: 8:51 AM Incision Close/Procedure End Time: 9:22 AM Surgeon(s)/Procedura list(s) and Manager Marketing Sales(s): Surgeon(s) and Role: * Mary Jo Chance MD - Primary * Christiansen, Xin, DO - Resident - Assisting * Jin Stuart DO - Resident - Assisting Registered Nurse [employer] Line Back Feeder: Megan Howell RN Informed Consent: Informed Consent [...] Gee MD Date: 09/15/2023 Time: 10:06 AM [facility] 09-02-2023 [facility] Telephone (PREANME) LESLIEKEAGAN GARCIA ([id number]) 4 F Date Time Provider Department 09/02/23 [...] (scheduled 10/03/23)? Thank you, Joyce Mishra PA-C [facility] Yamila Ballard MD 09/02/2023 1:36 PM [...] the office. Surgery sheet given back to first front ventilator to cancel. KELLI Barrios Jennifer, RN 09/05/2023 1:10 PM Signed Patient called the office back after viewing [employer] message. States she never received any voicemail messages from our office. Confirmed that we had the correct phone number on file. Patient voiced her frustration. States her Banker Mason never stated that she would need to [...] light of patient's recent appointment with her interior design coordinator Dr. Fernando Noriega on 09/03/23 (AANDP included [...] Continue follow-up with hematology -Echocardiogram done at [facility] showed normal LV and RV function with no valvular abnormalities -For her planned surgery if she stays as inpatient recommend for her to wear SCDs at all times and to use prophylactic subcutaneous heparin. Also discussed early mobilization to prevent VTE # SVT -Follow-up with electrophysiology for outpatient SVT ablation Norbert Fernandes MD [facility] Interventional Cardiology Endovascular Interventions [email or web address] As of Date: 09/02/2023 Noted Allergy [...] Of Date (more content not included)... Normal [facility] Basic metabolic 2000 panelOr dered By: Jason Cordova on 09-01-2023 Anion gap [Moles/Vol] 8 mmol/L 8 - 15 mmol/L [facility] Calcium [Mass/Vol] 8.8 mg/dL 8.5 - 10. 2 mg/dL [facility] Chloride [Moles/Vol] 104 mmol/L 98 - 107 mmol/L [facility] CO2 [Moles/Vol] 25 mmol/L 22 - 30 mmol/L [facility] Creatinine [Mass/Vol] 0.75 mg/dL 0.58 - 0.96 mg/dL [facility] GFR/1.73 sq M.predicted among non-blacks MDRD (S/P/Bld) [Vol rate/Area] 117 mL/min/{1.73_m2} - PINF [facility] Comment on above: Estimated Glomerular Filtration Rate [...] [Mass/Vol] 92 mg/dL 74 - 99 mg/dL [facility] Comment on above: The [place] Diab[employer] s Association (ADA) provides guidance for [...] Standards of Medical Care in Diabetes 2016, [place] [employer] Association. Diabetes Care. 2016.39(Suppl 1). Interpretation and review of laboratory results Normal [facility] Potassium [Moles/Vol] 4.4 mmol/L 3.7 - 5.1 mmol/L [facility] Sodium [Moles/Vol] 137 mmol/L 136 - 144 mmol/L [facility] Urea nitrogen [Mass/Vol] 9 mg/dL 7 - 21 mg/dL [facility] CBC W Auto Differential pane l (Bld)on 09-01-2023 Basophils (Bld) [#/Vol] [facility] Basophils/100 WBC (Bld) 0.6 % [facility] Differential cell count method Nom (Bld) Auto [facility] Eosinophils (Bld) [#/Vol] [facility] Eosinophils/100 WBC (Bld) 0.3 % [facility] Erythrocyte distribution width (RBC) [Ratio] 13.6 % 11.5 - 15.0 % [facility] Hematocrit (Bld) [Volume fraction] 41.6 % 36.0 - 46.0 % [facility] Hemoglobin (Bld) [Mass/Vol] 13.5 g/dL 11.5 - 15.5 g/dL [facility] Immature granulocytes (Bld) [#/Vol] [facility] Immature granulocytes/100 WBC (Bld) 0.0 % [facility] Interpretation and review of laboratory results Abnormal [facility] Lymphocytes (Bld) [#/Vol] 1.48 10*3/uL [facility] Lymphocytes/100 WBC (Bld) 41.7 % [facility] MCH (RBC) [Entitic mass] 28.3 pg 26.0 - 34.[address] [facility] MCHC (RBC) [Mass/Vol] 32.5 g/dL 30.5 - 36.0 g/dL [facility] MCV (RBC) [Entitic vol] 87.2 fL 80.0 - 100.[address] [facility] Monocytes (Bld) [#/Vol] 0.38 10*3/uL [facility] Monocytes/100 WBC (Bld) 10.7 % [facility] Neutrophils (Bld) [#/Vol] 1.66 10*3/uL [facility] Neutrophils/100 WBC (Bld) 46.7 % [facility] Nucleated RBC (Bld) [#/Vol] [facility] Nucleated RBC/100 WBC (Bld) [Ratio] 0.0 % /[address] [facility] Platelet mean volume (Bld) [Entitic vol] 11.9 fL 9.0 - 12.[address] [facility] Platelets (Bld) [#/Vol] 181 10*3/uL [facility] RBC (Bld) [#/Vol] 4.77 10*6/uL 3.90 - 5.2 0 m/uL [facility] WBC (Bld) [#/Vol] 3.55 10*3/uL [facility] ECG 12 lead (Clinic Performe d)on 08-21-2023 Sinus rhythm ventricular rate 67 QRS 80 QT 396 QTc 418 *Please refer to scanned ECG for final report* [facility] Work Phone: UA DIP,URINE HCG (POC)on Beta HCG ( test) Ql (U) Negative Negative [facility] Comment on above: Location:[facility], [address], [place], [address] Avionics Systems Engineer (POCT) Internal QC OK [facility] Location:[facility], [address], [place], [address] [facility] POINT OF CARE [facility] US Pelvison 08-19-2023 Indication Pelvic pain, IUD [...] Read By: Herve Rea M.D. MATERNAL MEDICINE [facility] Radiology Study observation (narrative) [facility] US LOWER EXTREMITY VENO US DUPLEX BILATERALon 07-09-2023 [facility] US LOWER EXTREMITY VENOUS [place] [address] [phone], Vascular Lab Report [facility] US LOWER EXTREMITY VENOUS DUPLEX BILATERAL Patient Name: KEAGAN RIZWANJama Reading Physician: [id number] Swanson MD Study Date: 07/09/2023 Ordering Provider: Andrew NORIEGA MRN/PID: [id number] Fellow: Technologist: Kath Rodriguez RVT/ Date of /Age: 8 2000 / 22 years Technologist 2: Gender: F Admission Status: Outpatient Location Performed: [facility] Diagnosis/ICD: Other pulmonary embolism without acute cor pulmonale-I26.99 CPT Codes: 23897 Peripheral venous duplex scan for DVT complete [...] Spontaneous/Phasic Peroneal Yes None PTV Yes None [id number] Norbert Swanson MD Final [facility] C. trachomatis+N. gonorrhoea e DNA SHYAM+probe Ql (Unsp spec)on 06-27-2023 C. trachomatis rRNA SHYAM+probe Ql (Unsp spec) Negative Negative for Chlamydia trachomatis by amplificaton [facility] Interpretation and review of laboratory results Normal [facility] N. gonorrhoeae rRNA SHYAM+probe Ql (Unsp spec) Negative Negative for Neisseria gonorrhoeae by amplification [facility] TRICHOMONAS VAGINALIS NAATon 06-27-2023 Interpretation and review of laboratory results Normal [facility] T. vaginalis DNA SHYAM+probe Ql (Unsp spec) Negative Negative for Trichomonas vaginalis by amplification [facility] Bacteria identifiedon 2023 Bacteria identified Cx Nom (U) Test: Urine Culture Specimen Source: Clean Catch/Voided Specimen Type: Urine Specimen Date: 06/24/20232045 Result Date: 06/26/2023802 Result Status: Final result Abnormal: No Resulting Lab: [facility] [id number] [place] [address] CULTURE No growth [facility] Comment on above: Performed By: #### 2 4323-8 #### MELISSA WHITEHEAD ([id number]) [facility] ([facility]) [address] [place] [address] CBC panel Auto (Bld)on 06-23 Erythrocyte distribution width (RBC) [Ratio] 14.7 % High 11.5 - 14.5 % [facility] Hematocrit (Bld) [Volume fraction] 44.3 % 36.0 - 46.0 % [facility] Hemoglobin (Bld) [Mass/Vol] 14.6 g/dL 12.0 - 16.0 g/dL [facility] Interpretation and review of laboratory results Abnormal [facility] MCH (RBC) [Entitic mass] 28.6 pg 26.0 - 34.0 pg [facility] MCHC (RBC) [Mass/Vol] 33.0 g/dL 32.0 - 36.0 g/dL [facility] MCV (RBC) [Entitic vol] 87 fL 80 - 100 fL [facility] Nucleated RBC/100 WBC (Bld) [Ratio] 0.0 % [facility] Platelets (Bld) [#/Vol] 232 10*3/uL [facility] RBC (Bld) [#/Vol] 5.11 10*6/uL [facility] WBC (Bld) [#/Vol] 4.7 10*3/uL [facility] Erythrocyte distribution width (RBC) [Ratio] 14.7 % High 11.5-14.5 [facility] Comment on above: Performed By: #### 2 4323-8 #### MELISSA WHITEHEAD ([id number]) [facility] ([facility]) [address] [place] [address] Hematocrit (Bld) [Volume fraction] 44.3 % Normal 36.0-46.0 [facility] Comment on above: Performed By: #### 2 4323-8 #### MELISSA WHITEHEAD ([id number]) [facility] ([facility]) [address] [place] [address] 48931 Hemoglobin (Bld) [Mass/Vol] 14.6 g/dL Normal 12.0-16.0 [facility] Comment on above: Performed By: #### 2 4323-8 #### MELISSA WHITEHEAD ([id number]) [facility] ([facility]) [address] [place] [address] 50422 MCH (RBC) [Entitic mass] 28.6 pg Normal 26.0-34.0 [facility] Comment on above: Performed By: #### 2 432-8 #### MELISSA WHITEHEAD ([id number]) [facility] ([facility]) [address] [place] [address] 33302 MCHC (RBC) [Mass/Vol] 33.0 g/dL Normal 32.0-36.0 [facility] Comment on above: Performed By: #### 2 432-8 #### MELISSA WHITEHEAD ([id number]) [facility] ([facility]) [address] [place] [address] MCV (RBC) [Entitic vol] 87 fL Normal 80-100 U [facility] Comment on above: Performed By: #### 2 432-8 #### MELISSA WHITEHEAD ([id number]) [facility] ([facility]) [address] [place] [address] 97205 Nucleated RBC/100 WBC (Bld) [Ratio] 0.0 /100 WBCs Normal 0.0-0.0 [facility] Comment on above: Performed By: #### 2 4323-8 #### MELISSA WHITEHEAD ([id number]) [facility] ([facility]) [address] [place] [address] 04363 Platelets (Bld) [#/Vol] 232 x10*3/uL Normal 150-450 [facility] Comment on above: Performed By: #### 2 432-8 #### MELISSA WHITEHEAD ([id number]) [facility] ([facility]) [address] [place] [address] 27119 RBC (Bld) [#/Vol] 5.11 x10*6/uL Normal 4.00-5.20 [facility] Comment on above: Performed By: #### 2 4323-8 #### TORRES VENTURA ([id number]) [facility] ([facility]) [address] [place] [address] WBC (Bld) [#/Vol] 4.7 x10*3/uL Normal 4.4-11.3 [facility] Comment on above: Performed By: #### 2 4323-8 #### TORRES VENTURA ([id number]) [facility] ([facility]) [address] [id number] ABDOMEN PELVIS W IV CONTR Cortney 06-24-2023 CT ABDOMEN PELVIS W IV CONTRAST Interpreted By: Christa Gagnon, STUDY: CT ABDOMEN PELVIS W IV CONTRAST; 06/24/2023 8:08 pm INDICATION: Signs/Symptoms:pain. COMPARISON: 06/19/2023 ACCESSION NUMBER(S): [id number] ORDERING CLINICIAN: MEGAN BERG TECHNIQUE: Axial CT [...] Christa Gagnon 06/24/2023 9:10 PM Dictation workstation: [id number] [facility] CT Abdomen and Pelvis W cont rast Anjali 06-24-2023 Postsurgical changes of recent cholecystectomy. No fluid collection in the surgical bed. No evidence of acute abdominal or pelvic abnormality. Acute subsegmental pulmonary embolism in the right lower lobe, described on PE CT dated 06/21/2023. MACRO: None Signed by: Christa Gagnon 06/24/2023 9:10 PM Dictation workstation: [id number] Interpreted By: Christa Gagnon, STUDY: CT ABDOMEN PELVIS W IV CONTRAST; 06/24/2023 8:08 pm INDICATION: Signs/Symptoms:pain. COMPARISON: 06/19/2023 ACCESSION NUMBER(S): [id number] ORDERING CLINICIAN: MEGAN BERG TECHNIQUE: Axial CT [...] pm INDICATION: Signs/Symptoms:pain. COMPARISON: 06/19/2023 ACCESSION NUMBER(S): [id number] ORDERING CLINICIAN: MEGAN BERG TECHNIQUE: Axial CT [...] Christa Gagnon 06/24/2023 9:10 PM Dictation workstation: [id number] [facility] Work Phone: Radiology Study observation (narrative) [facility] Work Phone: CT Abdomen and Pelvis W cont rast IVOrdered By: Christa Gagnon on 06-24-2023 [facility] Work Phone: Choriogonadotropin.beta subu niton 06-24-2023 HCG.beta subunit Qn m[IU]/mL Normal <5 [facility] Comment on above: Order Comment: Total HCG measurement is performed using the Marcello Fabiano Access Immunoassay which detects intact HCG and free beta HCG subunit. This test is not indicated for use as a tumor marker. HCG testing is performed using a different test methodology at [facility] than other [facility]. Direct result comparison should only be made within the same method. Performed By: #### 2 4323-8 #### MELISSA WHITEHEAD ([id number]) [facility] ([facility]) [address] [place], [place] [address] Coagulation tissue factor in ducedon 06-24-2023 PT Coag (PPP) [Time] 21.2 s High 9.8-12.8 [facility] Comment on above: Performed By: #### 2 4323-8 #### MELISSA WHITEHEAD ([id number]) [facility] ([facility]) [address] [place], [place] [address] Comprehensive metabolic 2000 panelon 06-24-2023 Albumin BCP dye [Mass/Vol] 4.8 g/dL 3.4 - 5.0 g/dL [facility] ALP [Catalytic activity/Vol] 54 U/L 33 - 110 U/L [facility] ALT With P-5'-P [Catalytic activity/Vol] 20 U/L 7 - 45 U/L [facility] Comment on above: Patients treated wit h Sulfasalazine may generate falsely decreased results for ALT. Anion gap [Moles/Vol] 19 mmol/L 10 - 20 mmol/L [facility] AST With P-5'-P [Catalytic activity/Vol] 15 U/L 9 - 39 U/L [facility] Bilirubin [Mass/Vol] 0.7 mg/dL 0.0 - 1.2 mg/dL [facility] Calcium [Mass/Vol] 9.3 mg/dL 8.6 - 10. 3 mg/dL [facility] Chloride [Moles/Vol] 99 mmol/L 98 - 107 mmol/L [facility] CO2 [Moles/Vol] 20 mmol/L Low 21 - 32 mmol/L [facility] Creatinine [Mass/Vol] 0.63 mg/dL 0.50 - 1.05 mg/dL [facility] eGFR - PINF [facility] Comment on above: Calculations of nick mated GFR are performed using the 2020 CKD-EPI Study Refit equation without the race variable for the IDMS-Traceable creatinine methods. https://jasn.asnjournals.org/content/early/ASN.2020 291396 Glucose [Mass/Vol] 61 mg/dL Low 74 - 99 mg/dL [facility] Interpretation and review of laboratory results Abnormal [facility] Potassium [Moles/Vol] 3.9 mmol/L 3.5 - 5.3 mmol/L [facility] Protein [Mass/Vol] 7.2 g/dL 6.4 - 8.2 g/dL Un [facility] Sodium [Moles/Vol] 134 mmol/L Low 136 - 145 mmol/L [facility] Urea nitrogen [Mass/Vol] 7 mg/dL 6 - 23 mg/dL [facility] Albumin BCP dye [Mass/Vol] 4.8 g/dL Normal 3.4-5.0 [facility] Comment on above: Performed By: #### 2 4323-8 #### MELISSA WHITEHEAD ([id number]) [facility] ([facility]) [address] [place] [address] ALP [Catalytic activity/Vol] 54 U/L Normal 33-110 [facility] Comment on above: Performed By: #### 2 4323-8 #### MELISSA WHITEHEAD ([id number]) [facility] ([facility]) [address] [place] [address] ALT With P-5'-P [Catalytic activity/Vol] 20 U/L Normal 7-45 [facility] Comment on above: Result Comment: Gema ents treated with Sulfasalazine may generate falsely decreased results for ALT. Performed By: #### 2 4323-8 #### MELISSA WHITEHEAD ([id number]) [facility] ([facility]) [address] [place] [address] Anion gap [Moles/Vol] 19 mmol/L Normal 10-20 [facility] Comment on above: Performed By: #### 2 4323-8 #### MELISSA WHITEHEAD ([id number]) [facility] ([facility]) [address] [place] [address] AST With P-5'-P [Catalytic activity/Vol] 15 U/L Normal 9-39 [facility] Comment on above: Performed By: #### 2 4323-8 #### MELISSA WHITEHEAD ([id number]) [facility] ([facility]) [address] [place] [address] Bilirubin [Mass/Vol] 0.7 mg/dL Normal 0.0-1.2 [facility] Comment on above: Performed By: #### 2 4322-8 #### MELISSA WHITEHEAD ([id number]) [facility] ([facility]) [address] [place] [address] Calcium [Mass/Vol] 9.3 mg/dL Normal 8.6-10.3 [facility] Comment on above: Performed By: #### 2 4322-8 #### MELISSA WHITEHEAD ([id number]) [facility] ([facility]) [address] [place] [address] Chloride [Moles/Vol] 99 mmol/L Normal 98-107 [facility] Comment on above: Performed By: #### 2 432-8 #### MELISSA WHITEHEAD ([id number]) [facility] ([facility]) [address] [place] [address] CO2 [Moles/Vol] 20 mmol/L Low 21-32 [facility] Comment on above: Performed By: #### 2 4323-8 #### MELISSA WHITEHEAD ([id number]) [facility] ([facility]) [address] [place] [address] Creatinine [Mass/Vol] 0.63 mg/dL Normal 0.50-1.05 [facility] Comment on above: Performed By: #### 2 4323-8 #### MELISSA WHITEHEAD ([id number]) [facility] ([facility]) [address] [place] [address] 15233 GFR/1.73 sq M.predicted MDRD (S/P/Bld) [Vol rate/Area] mL/min/{1.73_m2} Normal >60 [facility] Comment on above: Result Comment: Calc ulations of estimated GFR are performed using the 2020 CKD-EPI Study Refit equation without the race variable for the IDMS-Traceable creatinine methods. https://jasn.asnjournals.org/content/early/ASN.2020 150192 Performed By: #### 2 4323-8 #### MELISSA WHITEHEAD ([id number]) [facility] ([facility]) [address] [place] [address] 23369 Glucose [Mass/Vol] 61 mg/dL Low 74-99 [facility] Comment on above: Performed By: #### 2 4323-8 #### MELISSA WHITEHEAD ([id number]) [facility] ([facility]) [address] [place] [address] 53232 Potassium [Moles/Vol] 3.9 mmol/L Normal 3.5-5.3 [facility] Comment on above: Performed By: #### 2 4323-8 #### MELISSA WHITEHEAD ([id number]) [facility] ([facility]) [address] [place] [address] 19566 Protein [Mass/Vol] 7.2 g/dL Normal 6.4-8.2 [facility] Comment on above: Performed By: #### 2 4323-8 #### MELISSA WHITEHEAD ([id number]) [facility] ([facility]) [address] [place] [address] 73224 Sodium [Moles/Vol] 134 mmol/L Low 136-145 [facility] Comment on above: Performed By: #### 2 4323-8 #### MELISSA WHITEHEAD ([id number]) [facility] ([facility]) [address] [place] [address] 49812 Urea nitrogen [Mass/Vol] 7 mg/dL Normal 6-23 [facility] Comment on above: Performed By: #### 2 4323-8 #### MELISSA WHITEHEAD ([id number]) [facility] ([facility]) [facility] [place] [address] HCG.beta subunit Qnon 2023 Interpretation and review of laboratory results Normal [facility] Total HCG measurement is performed using the Marcello Fabiano Access Immunoassay which detects intact HCG and free beta HCG subunit. This test is not indicated for use as a tumor marker. HCG testing is performed using a different test methodology at [facility] than other [facility]. Direct result comparison should only be made within the same method. [facility] PT Coag (PPP) [Time]on 06-23 INR Coag (PPP) [Relative time] 1.9 {INR} High 0.9 - 1.1 [facility] Interpretation and review of laboratory results Abnormal [facility] INR Coag (PPP) [Relative time] 1.9 High 0.9-1.1 [facility] Comment on above: Performed By: #### 2 4323-8 #### MELISSA WHITEHEAD ([id number]) [facility] ([facility]) [facility] [place] [address] Protime-INRon 06-24-2023 PT Coag (PPP) [Time] 21.2 s High [facility] Urinalysis complete W Reflex Culture panel (U)on 06-24-2023 Epithelial cells.squamous Auto (Urine sed) [#/Area] 1-9 (SPARSE) Reference range not established. /HPF [facility] Interpretation and review of laboratory results Abnormal [facility] RBC Auto (Urine sed) [#/Area] >20 Abnormal NONE, 1-2, 3-5 /HPF [facility] WBC Auto (Urine sed) [#/Area] 6-10 Abnormal 1-5, NONE /HPF [facility] Appearance (U) Hazy Normal Clear [facility] Comment on above: Performed By: #### 2 4323-8 #### MELISSA WHITEHEAD ([id number]) [facility] ([facility]) [address] [place] [address] 34022 Bilirubin (U) [Mass/Vol] Negative Normal NEGATIVE [facility] Comment on above: Performed By: #### 2 4323-8 #### MELISSA WHITEHEAD ([id number]) [facility] ([facility]) [address] [place], [place] [address] Color (U) Idalmis Normal Straw, Yellow [facility] Comment on above: Performed By: #### 2 4323-8 #### MELISSA WHITEHEAD ([id number]) [facility] ([facility]) [address] [place] [address] 13412 Epithelial cells.squamous Auto (Urine sed) [#/Area] 1-9 (SPARSE) Normal Reference range not established. [facility] Comment on above: Performed By: #### 2 4323-8 #### MELISSA WHITEHEAD ([id number]) [facility] ([facility]) [address] [place], [place] [address] Glucose Auto test strip (U) [Mass/Vol] Negative Normal NEGATIVE [facility] Comment on above: Performed By: #### 2 4323-8 #### MELISSA WHITEHEAD ([id number]) [facility] ([facility]) [address] [place] [address] 71539 Ketones (U) [Mass/Vol] 80 (2+) Abnormal NEGATIVE [facility] Comment on above: Performed By: #### 2 4323-8 #### MELISSA WHITEHEAD ([id number]) [facility] ([facility]) [address] [place] [address] 68638 Leukocyte esterase Auto test strip Ql (U) Negative Normal NEGATIVE [facility] Comment on above: Performed By: #### 2 4323-8 #### MELISSA WHITEHEAD ([id number]) [facility] ([facility]) [address] [place] [address] 03981 Nitrite Auto test strip Ql (U) Negative Normal NEGATIVE [facility] Comment on above: Performed By: #### 2 4323-8 #### MELISSA WHITEHEAD ([id number]) [facility] ([facility]) [address] [place] [address] 68347 pH (U) 6.0 [pH] Normal 5.0, 5.5, 6.0, 6.5, 7.0, 7.5, 8.0 [facility] Comment on above: Performed By: #### 2 4323-8 #### MELISSA WHITEHEAD ([id number]) [facility] ([facility]) [address] [place] [address] 78380 Protein (U) [Mass/Vol] 100 (2+) Normal NEGATIVE [facility] Comment on above: Performed By: #### 2 4323-8 #### MELISSA WHITEHEAD ([id number]) [facility] ([facility]) [address] [place] [address] 46253 RBC (U) [#/Vol] LARGE (3+) Abnormal NEGATIVE [facility] Comment on above: Performed By: #### 2 4322-8 #### MELISSA WHITEHEAD ([id number]) [facility] ([facility]) [address] [place] [address] 36460 RBC Auto (Urine sed) [#/Area] >20 Abnormal NONE, 1-2, 3-5 [facility] Comment on above: Performed By: #### 2 4322-8 #### MELISSA WHITEHEAD ([id number]) [facility] ([facility]) [address] [place] [address] 56146 Specific gravity (U) [Rel density] 1.038 Normal 1.005-1.035 [facility] Comment on above: Performed By: #### 2 3-8 #### MELISSA WHITEHEAD ([id number]) [facility] ([facility]) [address] [place] [address] 53433 Urobilinogen (U) [Mass/Vol] mg/dL Normal <2.0 [facility] Comment on above: Performed By: #### 2 3-8 #### MELISSA WHITEHEAD ([id number]) [facility] ([facility]) [address] [place] [address] 62756 WBC Auto (Urine sed) [#/Area] 6-10 Abnormal 1-5, NONE [facility] Comment on above: Performed By: #### 2 3-8 #### MELISSA WHITEHEAD ([id number]) [facility] ([facility]) [address] [place] [address] Urinalysis complete W Reflex Culture panel (U)Ordered By: Jacinta Armenta on 06-24-2023 Appearance (U) Hazy Abnormal Clear [facility] Bilirubin (U) [Mass/Vol] Negative NEGATIVE [facility] Color (U) Idalmis Abnormal Straw, Yellow [facility] Glucose Auto test strip (U) [Mass/Vol] Negative NEGATIVE mg/dL [facility] Interpretation and review of laboratory results Abnormal [facility] Ketones (U) [Mass/Vol] 80 (2+) Abnormal NEGATIVE mg/d L [facility] Leukocyte esterase Auto test strip Ql (U) Negative NEGATIVE [facility] Nitrite Auto test strip Ql (U) Negative NEGATIVE [facility] pH (U) 6.0 [pH] 5.0, 5.5, 6.0, 6.5, 7.0, 7.5, 8.0 [facility] Protein (U) [Mass/Vol] 100 (2+) Abnormal NEGATIVE mg/d L [facility] RBC (U) [#/Vol] LARGE (3+) Abnormal NEGATIVE [facility] Specific gravity (U) [Rel density] 1.038 Abnormal 1.005 - 1.035 [facility] Urobilinogen (U) [Mass/Vol] mg/dL NINF - 2.0 mg/dL [facility] hCG, quantitative, on 06-24-2023 HCG.beta subunit Qn NINF [facility] BETA HCG, QUANTITATIVE FOR E Don 06-22-2023 HCG.beta subunit Qn m[IU]/mL Normal <5.0 [facility] Comment on above: Order Comment: Speci men Type: BLOOD SPECIMEN Ordering Facility: [facility] Address: [address] [place] [address] Result Comment: Darrion moreno Performed By: #### H CGED #### [facility] CLIA [id number] [address] [place] [address] [place] CBC W Auto Differential pane l (Bld)on 06-22-2023 Basophils (Bld) [#/Vol] 0.03 10*3/uL Normal <0.11 [facility] Comment on above: Order Comment: Speci men Type: BLOOD SPECIMEN Ordering Facility: [facility] Address: [address] [place] [address] Performed By: #### 3 3762-6, 15439-7, 93387-1, 3040-3, HSTNT #### [facility] CLIA [id number] [address] [place] [address] [place] Basophils/100 WBC (Bld) 0.6 % Normal [facility] Comment on above: Order Comment: Speci men Type: BLOOD SPECIMEN Ordering Facility: [facility] Address: [address] [place] [address] Performed By: #### 3 3762-6, 77482-1, 94252-7, 3040-3, HSTNT #### [facility] CLIA [id number] [address] [place] [address] [place] Differential cell count method Nom (Bld) Auto Normal [facility] Comment on above: Order Comment: Speci men Type: BLOOD SPECIMEN Ordering Facility: [facility] Address: [address] [place] [address] Performed By: #### 3 3762-6, 10159-0, 66525-1, 3040-3, HSTNT #### [facility] CLIA [id number] [address] [place] [address] [place] Eosinophils (Bld) [#/Vol] 0.20 10*3/uL Normal <0.46 [facility] Comment on above: Order Comment: Speci men Type: BLOOD SPECIMEN Ordering Facility: [facility] Address: [address] [place] [address] Performed By: #### 3 3762-6, 40632-1, 43116-2, 3040-3, HSTNT #### [facility] CLIA [id number] [address] [place] Eosinophils/100 WBC (Bld) 3.8 % Normal [facility] Comment on above: Order Comment: Speci men Type: BLOOD SPECIMEN Ordering Facility: [facility] Address: [address] [place] [address] Performed By: #### 3 3762-6, 79685-8, 10255-5, 3040-3, HSTNT #### [facility] CLIA [id number] [address] [place] [address] [place] Erythrocyte distribution width (RBC) [Ratio] 14.6 % Normal 11.5-15.0 [facility] Comment on above: Order Comment: Speci men Type: BLOOD SPECIMEN Ordering Facility: [facility] Address: [address] [place] [address] Performed By: #### 3 3762-6, 53852-9, 73818-8, 3040-3, HSTNT #### [facility] CLIA [id number] [address] [place] Hematocrit (Bld) [Volume fraction] 42.1 % Normal 36.0-46.0 [facility] Comment on above: Order Comment: Speci men Type: BLOOD SPECIMEN Ordering Facility: [facility] Address: [address] [place] [address] Performed By: #### 3 3762-6, 21968-8, 82503-3, 3040-3, HSTNT #### [facility] CLIA [id number] [address] [place] [address] [place] Hemoglobin (Bld) [Mass/Vol] 14.0 g/dL Normal 11.5-15.5 [facility] Comment on above: Order Comment: Speci men Type: BLOOD SPECIMEN Ordering Facility: [facility] Address: [address] [place] [address] Performed By: #### 3 3762-6, 80819-8, 83766-5, 3040-3, HSTNT #### [facility] CLIA [id number] [address] [place] [address] [place] Immature granulocytes (Bld) [#/Vol] 10*3/uL Normal <0.10 [facility] Comment on above: Order Comment: Speci men Type: BLOOD SPECIMEN Ordering Facility: [facility] Address: [address] [place] [address] Performed By: #### 3 3762-6, 41115-9, 95885-5, 3040-3, HSTNT #### [facility] CLIA [id number] [address] [place] Immature granulocytes/100 WBC (Bld) 0.2 % Normal [facility] Comment on above: Order Comment: Speci men Type: BLOOD SPECIMEN Ordering Facility: [facility] Address: [address] [place] [address] Performed By: #### 3 3762-6, 41964-7, 10049-2, 3040-3, HSTNT #### [facility] CLIA [id number] [address] [place] [address] [place] Lymphocytes (Bld) [#/Vol] 2.05 10*3/uL Normal 1.00-4.00 [facility] Comment on above: Order Comment: Speci men Type: BLOOD SPECIMEN Ordering Facility: [facility] Address: [address] [place] [address] Performed By: #### 3 3762-6, 91101-2, 55181-2, 3040-3, HSTNT #### [facility] CLIA [id number] [address] [place] Lymphocytes/100 WBC (Bld) 38.5 % Normal [facility] Comment on above: Order Comment: Speci men Type: BLOOD SPECIMEN Ordering Facility: [facility] Address: [address] [place] [address] Performed By: #### 3 3762-6, 23740-1, 59937-6, 3040-3, HSTNT #### [facility] CLIA [id number] [address] [place] [address] [place] MCH (RBC) [Entitic mass] 28.4 pg Normal 26.0-34.0 [facility] Comment on above: Order Comment: Speci men Type: BLOOD SPECIMEN Ordering Facility: [facility] Address: [address] [place] [address] Performed By: #### 3 3762-6, 91373-7, 52813-8, 3040-3, HSTNT #### [facility] CLIA [id number] [address] [place] [address] [place] MCHC (RBC) [Mass/Vol] 33.3 g/dL Normal 30.5-36.0 [facility] Comment on above: Order Comment: Speci men Type: BLOOD SPECIMEN Ordering Facility: [facility] Address: [address] [place] [address] Performed By: #### 3 3762-6, 65249-6, 56904-5, 3040-3, HSTNT #### [facility] CLIA [id number] [address] [place] [address] [place] MCV (RBC) [Entitic vol] 85.4 fL Normal 80.0-100.0 [facility] Comment on above: Order Comment: Speci men Type: BLOOD SPECIMEN Ordering Facility: [facility] Address: [address] [place] [address] Performed By: #### 3 3762-6, 69242-3, 56621-0, 3040-3, HSTNT #### [facility] CLIA [id number] [address] [place] [address] [place] Monocytes (Bld) [#/Vol] 0.31 10*3/uL Normal <0.87 [facility] Comment on above: Order Comment: Speci men Type: BLOOD SPECIMEN Ordering Facility: [facility] Address: [address] [place] [address] Performed By: #### 3 3762-6, 61940-9, 80697-6, 3040-3, HSTNT #### [facility] CLIA [id number] [address] [place] [address] [place] Monocytes/100 WBC (Bld) 5.8 % Normal [facility] Comment on above: Order Comment: Speci men Type: BLOOD SPECIMEN Ordering Facility: [facility] Address: [address] [place] [address] Performed By: #### 3 3762-6, 07482-7, 08110-9, 3040-3, HSTNT #### [facility] CLIA [id number] [address] [place] [address] [place] Neutrophils (Bld) [#/Vol] 2.72 10*3/uL Normal 1.45-7.50 [facility] Comment on above: Order Comment: Speci men Type: BLOOD SPECIMEN Ordering Facility: [facility] Address: [address] [place] [address] Performed By: #### 3 3762-6, 19490-6, 07725-3, 3040-3, HSTNT #### [facility] CLIA [id number] [address] [place] [address] [place] Neutrophils/100 WBC (Bld) 51.1 % Normal [facility] Comment on above: Order Comment: Speci men Type: BLOOD SPECIMEN Ordering Facility: [facility] Address: [address] [place] [address] Performed By: #### 3 3762-6, 48867-5, 37109-4, 3040-3, HSTNT #### [facility] CLIA [id number] [address] [place] [address] [place] Nucleated RBC (Bld) [#/Vol] 10*3/uL Normal <0.01 [facility] Comment on above: Order Comment: Speci men Type: BLOOD SPECIMEN Ordering Facility: [facility] Address: [address] [place] [address] Performed By: #### 3 3762-6, 69430-6, 09008-1, 3040-3, HSTNT #### [facility] CLIA [id number] [address] [place] [address] [place] Nucleated RBC/100 WBC (Bld) [Ratio] 0.0 /100 WBC Normal [facility] Comment on above: Order Comment: Speci men Type: BLOOD SPECIMEN Ordering Facility: [facility] Address: [address] [place] [address] Performed By: #### 3 3762-6, 99835-6, 72770-6, 3040-3, HSTNT #### [facility] CLIA [id number] [address] [place] [address] [place] Platelet mean volume (Bld) [Entitic vol] 11.4 fL Normal 9.0-12.7 [facility] Comment on above: Order Comment: Speci men Type: BLOOD SPECIMEN Ordering Facility: [facility] Address: [address] [place] [address] Performed By: #### 3 3762-6, 07201-2, 94994-1, 3040-3, HSTNT #### [facility] CLIA [id number] [address] [place] [address] [place] Platelets (Bld) [#/Vol] 210 10*3/uL Normal 150-400 [facility] Comment on above: Order Comment: Speci men Type: BLOOD SPECIMEN Ordering Facility: [facility] Address: [address] [place] [address] Performed By: #### 3 3762-6, 28482-2, 50190-8, 3040-3, HSTNT #### [facility] CLIA [id number] [address] [place] [address] [place] RBC (Bld) [#/Vol] 4.93 10*6/uL Normal 3.90-5.20 [facility] Comment on above: Order Comment: Speci men Type: BLOOD SPECIMEN Ordering Facility: [facility] Address: [address] [place] [address] Performed By: #### 3 3762-6, 87989-4, 57204-0, 3040-3, HSTNT #### [facility] CLIA [id number] [address] [place] [address] [place] WBC (Bld) [#/Vol] 5.32 10*3/uL Normal 3.70-11.00 [facility] Comment on above: Order Comment: Speci men Type: BLOOD SPECIMEN Ordering Facility: [facility] Address: [address] [place] [address] Performed By: #### 3 3762-6, 98610-5, 87319-0, 3040-3, HSTNT #### [facility] CLIA [id number] [address] [place] [address] [place] [address] ABD/PEL W IVCONon 024 CT ABD/PEL W IVCON * * *Final Report* * * DATE OF EXAM: Jun 22 2023 2:12PM [facility] 0530 - CT ABD/PEL W IVCON / [...] of an acute intra-abdominal or pelvic process Actuarial Intern: [facility] Transcribe Date/Time: Jun 22 2023 2:23P Dictated by : BRISSA FAIRBANKS MD This examination was interpreted and the report reviewed and electronically signed by: BRISSA FAIRBANKS MD on Jun 22 2023 2:29PM EST [id number] Normal [facility] Comprehensive metabolic 2000 panelon 06-22-2023 Albumin [Mass/Vol] 4.4 g/dL Normal 3.9-4.9 [facility] Comment on above: Order Comment: Speci men Type: BLOOD SPECIMEN Ordering Facility: [facility] Address: [address] [place] [address] Performed By: #### 3 3762-6, 53268-9, 43507-3, 3040-3, HSTNT #### [facility] CLIA [id number] [address] [place] [address] [place] ALP [Catalytic activity/Vol] 61 U/L Normal 34-123 [facility] Comment on above: Order Comment: Speci men Type: BLOOD SPECIMEN Ordering Facility: [facility] Address: [address] [place] [address] Performed By: #### 3 3762-6, 04167-0, 82874-3, 3040-3, HSTNT #### [facility] CLIA [id number] [address] [place] [address] [place] ALT [Catalytic activity/Vol] 27 U/L Normal 7-38 [facility] Comment on above: Order Comment: Speci men Type: BLOOD SPECIMEN Ordering Facility: [facility] Address: [address] [place] [address] Performed By: #### 3 3762-6, 95933-6, 36601-8, 3040-3, HSTNT #### [facility] CLIA [id number] [address] [place] [address] [place] Anion gap [Moles/Vol] 15 mmol/L Normal 9-18 [facility] Comment on above: Order Comment: Speci men Type: BLOOD SPECIMEN Ordering Facility: [facility] Address: [address] [place] [address] Performed By: #### 3 3762-6, 14458-0, 18594-3, 3040-3, HSTNT #### [facility] CLIA [id number] [address] [place] [address] [place] AST [Catalytic activity/Vol] 18 U/L Normal 13-35 [facility] Comment on above: Order Comment: Speci men Type: BLOOD SPECIMEN Ordering Facility: [facility] Address: [address] [place] [address] Performed By: #### 3 3762-6, 83286-9, 94763-0, 3040-3, HSTNT #### [facility] CLIA [id number] [address] [place] [address] [place] Bilirubin [Mass/Vol] 0.6 mg/dL Normal 0.2-1.3 [facility] Comment on above: Order Comment: Speci men Type: BLOOD SPECIMEN Ordering Facility: [facility] Address: [address] [place] [address] Performed By: #### 3 3762-6, 26340-3, 01814-9, 3040-3, HSTNT #### [facility] CLIA [id number] [address] [place] [address] [place] Calcium [Mass/Vol] 9.1 mg/dL Normal 8.5-10.2 [facility] Comment on above: Order Comment: Speci men Type: BLOOD SPECIMEN Ordering Facility: [facility] Address: [address] [place] [address] Performed By: #### 3 3762-6, 59900-1, 15392-9, 3040-3, HSTNT #### [facility] CLIA [id number] [address] [place] [address] [place] Chloride [Moles/Vol] 99 mmol/L Normal 97-105 [facility] Comment on above: Order Comment: Speci men Type: BLOOD SPECIMEN Ordering Facility: [facility] Address: [address] [place] [address] Performed By: #### 3 3762-6, 23284-1, 42068-9, 3040-3, HSTNT #### [facility] CLIA [id number] [address] [place] [address] [place] CO2 [Moles/Vol] 22 mmol/L Normal 22-30 [facility] Comment on above: Order Comment: Speci men Type: BLOOD SPECIMEN Ordering Facility: [facility] Address: [address] [place] [address] Performed By: #### 3 3762-6, 19412-3, 28929-3, 3040-3, HSTNT #### [facility] CLIA [id number] [address] [place] [address] [place] Creatinine [Mass/Vol] 0.68 mg/dL Normal 0.58-0.96 [facility] Comment on above: Order Comment: Speci men Type: BLOOD SPECIMEN Ordering Facility: [facility] Address: [address] [place] [address] Performed By: #### 3 3762-6, 19296-1, 36942-2, 3040-3, HSTNT #### [facility] CLIA [id number] [address] STATES OF [facility] Creatinine and Glomerular filtration rate.predicted panel (S/P/Bld) 128 mL/min/1.73m??? Normal >=60 [facility] Comment on above: Order Comment: Kayli moon Type: BLOOD SPECIMEN Ordering Facility: [facility] Address: [address] [place] [address] Result Comment: Nick mated Glomerular Filtration Rate [...] actual GFR. Performed By: #### 3 3762-6, 61895-7, 03834-0, 3040-3, HSTNT #### [facility] CLIA [id number] [address] [place] [address] [place] Glucose [Mass/Vol] 67 mg/dL Low 74-99 [facility] Comment on above: Order Comment: Kayli moon Type: BLOOD SPECIMEN Ordering Facility: [facility] Address: [address] [place] [address] Result Comment: The [place] [employer] (ADA) provides guidance for cutoff [...] Standards of Medical Care in Diabetes 2016, [place] [employer]. Diabetes Care. 2016.39(Suppl 1). Performed By: #### 3 3762-6, 97269-2, 49323-8, 3040-3, HSTNT #### [facility] CLIA [id number] [address] [place] [address] [place] Potassium [Moles/Vol] 3.6 mmol/L Low 3.7-5.1 [facility] Comment on above: Order Comment: Speci men Type: BLOOD SPECIMEN Ordering Facility: [facility] Address: [address] [place] [address] Performed By: #### 3 3762-6, 29335-5, 61660-2, 3040-3, HSTNT #### [facility] CLIA [id number] [address] [place] [address] [place] Protein [Mass/Vol] 6.9 g/dL Normal 6.3-8.0 [facility] Comment on above: Order Comment: Speci men Type: BLOOD SPECIMEN Ordering Facility: [facility] Address: [address] [place] [address] Performed By: #### 3 3762-6, 95007-8, 01036-4, 3040-3, HSTNT #### [facility] CLIA [id number] [address] [place] [address] [place] Sodium [Moles/Vol] 136 mmol/L Normal 136-144 [facility] Comment on above: Order Comment: Speci men Type: BLOOD SPECIMEN Ordering Facility: [facility] Address: [address] [place] [address] Performed By: #### 3 3762-6, 87118-4, 98799-2, 3040-3, HSTNT #### [facility] CLIA [id number] [address] [place] [address] [place] Urea nitrogen [Mass/Vol] 9 mg/dL Normal 7-21 [facility] Comment on above: Order Comment: Speci men Type: BLOOD SPECIMEN Ordering Facility: [facility] Address: [address] [place] [address] Performed By: #### 3 3762-6, 38714-6, 43032-7, 3040-3, HSTNT #### [facility] CLIA [id number] [address] [place] [address] [place] ED NOTEon 06-22-2023 ED NOTE HNO ID: [id number] Author: CLAU WHITE, KELLI Service: Nursing Author Type: Registered Nurse Type: ED Notes Filed: 06/22/2023 15:45 Note Text: Pt verbalizes understanding of follow up with PCP and prescriptions x1. Pt stable and ambulatory. IV removed. No further questions at this time. [facility] ED PROV NOTEon 06-22-2023 ED PROV NOTE HNO ID: [id number] Author: MALIA GUTIERREZ DO Service: Emergency Medicine Author Type: Physician Type: ED Provider Notes Filed: 06/22/2023 19:06 Note Text: ED Provider Note Patient Name: Keagan Alicia : 2000 SERVICE DATE: 06/22/23 History Patient presents with: Multiple Concerns: Gallbladder removed 06/17/23 at [facility]. Having issues with infection/pain since. A small blood clot was found on her lung yesterday and was placed on blood thinner (eliquis) She is shaky and still having vomiting. Keagan Alicia is a 22-year-old female who is presenting to the emergency department with multiple concerns. Patient had a cholecystectomy done at hospitals on Friday. She states since this procedure [...] Procedure Laterality Date - CHOLECYSTECTOMY HX 06/17/2023 [facility] - TONSILLECTOMY HX FAMILY HISTORY Problem [...] Clinical Impression Clinical Impressions as of 06/22/23 1905 Nausea S/P laparoscopic cholecystectomy MDM / Disposition / Plan Keagan Alicia is a 22-year-old female who is presenting to the emergency department with nausea. Patient is status postcholecystectomy. She was seen multiple times since her surgery for similar comp (more content not included)... Normal [facility] FLUABV+SARS-CoV-2+RSV Pnl Re sp SHYAM+probeon 06-22-2023 FLUABV+SARS-CoV-2+RSV Pnl Resp SHYAM+probe COVID 19 RESULT: Not detected The method used is RT-PCR or an equivalent NAAT method. Reference Range(the expected result in uninfected individuals): Not detected INFLUENZA A PCR: Not detected INFLUENZA B PCR: Not detected RSV PCR: Not detected Normal [facility] Comment on above: Performed By: #### 9 5941-1 #### [facility] CLIA [id number] [address] [place] [address] [place] Gas and Carbon monoxide pane l (BldV)on 06-22-2023 BASE DEFICIT, VENOUS -2 mmol/L Normal -2-0 [facility] Comment on above: Order Comment: Kayli moon Type: VENOUS BLOOD SPECIMEN Ordering Facility: [facility] Address: [address] [place] [address] Performed By: #### 2 4344-4 #### [facility] CLIA [id number] [facility] RESPIRATORY THERAPY [address] [address] Carboxyhemoglobin (BldV) [Mass fraction] <1.0 Normal 0.0-2.0 [facility] Comment on above: Order Comment: Speci men Type: VENOUS BLOOD SPECIMEN Ordering Facility: [facility] Address: [address] [place] [address] Result Comment: Carb oxyhemoglobin Reference Range for Smokers: 2.0-8.0% Performed By: #### 2 4344-4 #### [facility] CLIA [id number] [facility] RESPIRATORY THERAPY [address] [address] CO2 (BldV) [Partial pressure] 43 mm[Hg] Normal 42-55 [facility] Comment on above: Order Comment: Speci men Type: VENOUS BLOOD SPECIMEN Ordering Facility: [facility] Address: [address] [place], [place] [address] Performed By: #### 2 4344-4 #### [facility] CLIA [id number] [facility] RESPIRATORY THERAPY [address] [address] CO2 adjusted to patient's actual temperature (BldV) [Partial pressure] Normal [facility] Comment on above: Order Comment: Speci men Type: VENOUS BLOOD SPECIMEN Ordering Facility: [facility] Address: [address] [place] [address] Performed By: #### 2 4344-4 #### [facility] CLIA [id number] [facility] RESPIRATORY THERAPY [address] [address] HCO3 (Bld) [Moles/Vol] 23 mmol/L Low 24-28 [facility] Comment on above: Order Comment: Speci men Type: VENOUS BLOOD SPECIMEN Ordering Facility: [facility] Address: [address] [place] [address] Performed By: #### 2 4344-4 #### [facility] CLIA [id number] [facility] RESPIRATORY THERAPY [address] [address] Hemoglobin (Bld) [Mass/Vol] 14.7 g/dL Normal 11.5-15.5 [facility] Comment on above: Order Comment: Speci men Type: VENOUS BLOOD SPECIMEN Ordering Facility: [facility] Address: [address] [place] [address] Performed By: #### 2 4344-4 #### [facility] CLIA [id number] [facility] RESPIRATORY THERAPY [address] [address] Lactate [Moles/Vol] 1.0 mmol/L Normal 0.5-2.2 [facility] Comment on above: Order Comment: Speci men Type: VENOUS BLOOD SPECIMEN Ordering Facility: [facility] Address: [address] [place] [address] Performed By: #### 2 4344-4 #### [facility] CLIA [id number] [facility] RESPIRATORY THERAPY [address] [address] Methemoglobin (Bld) [Mass fraction] % Normal 0.0-1.5 [facility] Comment on above: Order Comment: Speci men Type: VENOUS BLOOD SPECIMEN Ordering Facility: [facility] Address: [address] [place] [address] Performed By: #### 2 4344-4 #### [facility] CLIA [id number] [facility] RESPIRATORY THERAPY [address] [address] O2 THERAPY RA=Room Air [facility] Comment on above: Order Comment: Speci men Type: VENOUS BLOOD SPECIMEN Ordering Facility: [facility] Address: [address] [place] [address] Performed By: #### 2 4344-4 #### [facility] CLIA [id number] [facility] RESPIRATORY THERAPY [address] [address] Oxygen (BldV) [Partial pressure] mm[Hg] Low 35-45 [facility] Comment on above: Order Comment: Speci men Type: VENOUS BLOOD SPECIMEN Ordering Facility: [facility] Address: [address] [place] [address] Performed By: #### 2 4344-4 #### [facility] CLIA [id number] [facility] RESPIRATORY THERAPY [address] [address] Oxygen adjusted to patient's actual temperature (BldV) [Partial pressure] [facility] Comment on above: Order Comment: Speci men Type: VENOUS BLOOD SPECIMEN Ordering Facility: [facility] Address: [address] [place] [address] Performed By: #### 2 4344-4 #### [facility] CLIA [id number] [facility] RESPIRATORY THERAPY [address] [address] Oxyhemoglobin (BldV) [Mass fraction] 43 % Low 60-85 [facility] Comment on above: Order Comment: Speci men Type: VENOUS BLOOD SPECIMEN Ordering Facility: [facility] Address: [address] [place] [address] Performed By: #### 2 4344-4 #### [facility] CLIA [id number] [facility] RESPIRATORY THERAPY [address] [address] pH (BldV) 7.35 [pH] Normal 7.32-7.42 [facility] Comment on above: Order Comment: Speci men Type: VENOUS BLOOD SPECIMEN Ordering Facility: [facility] Address: [address] [place] [address] Performed By: #### 2 4344-4 #### [facility] CLIA [id number] [facility] RESPIRATORY THERAPY [address] [address] pH adjusted to patient's actual temperature (BldV) Normal [facility] Comment on above: Order Comment: Speci men Type: VENOUS BLOOD SPECIMEN Ordering Facility: [facility] Address: [address] [place] [address] Performed By: #### 2 4344-4 #### [facility] CLIA [id number] [facility] RESPIRATORY THERAPY [address] [address] Potassium [Moles/Vol] 3.4 mmol/L Low 3.5-5.0 [facility] Comment on above: Order Comment: Speci men Type: VENOUS BLOOD SPECIMEN Ordering Facility: [facility] Address: [address] [place] [address] Performed By: #### 2 4344-4 #### [facility] CLIA [id number] [facility] RESPIRATORY THERAPY [address] [address] HIGH SENSITIVITY TROPONIN To n 06-22-2023 Troponin T.cardiac High sensitivity method [Mass/Vol] <6 Normal <12 [facility] Comment on above: Order Comment: Kayli moon Type: BLOOD SPECIMEN Ordering Facility: [facility] Address: [address] [place] [address] Result Comment: When assessing risk for acute [...] day MACE. Performed By: #### 3 3762-6, 72635-8, 67933-6, 3040-3, HSTNT #### [facility] CLIA [id number] [address] [place] [address] [place] Lipase SerPl-cCncon 06-22-19 24 Lipase [Catalytic activity/Vol] 32 U/L Normal 16-61 [facility] Comment on above: Order Comment: Kayli moon Type: BLOOD SPECIMEN Ordering Facility: [facility] Address: [address] [place] [address] Performed By: #### 3 3762-6, 66545-8, 33401-1, 3040-3, HSTNT #### [facility] CLIA [id number] [address] [place] [address] [place] Magnesium SerPl-mCncon 06-21 Magnesium [Mass/Vol] 1.7 mg/dL Normal 1.7-2.3 [facility] Comment on above: Order Comment: Kayli red Type: BLOOD SPECIMEN Ordering Facility: [facility] Address: [address] [place] [address] Performed By: #### 3 3762-6, 66332-3, 51316-5, 3040-3, HSTNT #### [facility] CLIA [id number] [address] [place] [address] [place] NT-proBNP SerPl-mCncon 06-21 Natriuretic peptide.B prohormone N-Terminal [Mass/Vol] 75 pg/mL Normal <125 [facility] Comment on above: Order Comment: Speci men Type: BLOOD SPECIMEN Ordering Facility: [facility] Address: [address] [place] [address] Performed By: #### 3 3762-6, 74163-1, 39812-5, 3040-3, HSTNT #### [facility] CLIA [id number] [address] Urinalysis complete panel (U )on 06-22-2023 Bacteria LM.HPF (Urine sed) [#/Area] Few Abnormal None Seen [facility] Comment on above: Order Comment: Speci men Type: URINE SPECIMEN Ordering Facility: [facility] Address: [address] [place] [address] Performed By: #### 2 4356-8 #### [facility] CLIA [id number] [address] Bilirubin Ql (U) 1+ Abnormal Negative [facility] Comment on above: Order Comment: Speci men Type: URINE SPECIMEN Ordering Facility: [facility] Address: [address] [place] [address] Result Comment: Sugg est correlation with clinical findings and serum bilirubin if clinically indicated. Performed By: #### 2 4356-8 #### [facility] CLIA [id number] [address] Clarity (Unsp spec) Clear Normal Clear [facility] Comment on above: Order Comment: Speci men Type: URINE SPECIMEN Ordering Facility: [facility] Address: [address] [place] [address] Performed By: #### 2 4356-8 #### [facility] CLIA [id number] [address] [facility] Color (U) Yellow Normal Yellow [facility] Comment on above: Order Comment: Speci men Type: URINE SPECIMEN Ordering Facility: [facility] Address: [address] [place] [address] Performed By: #### 2 4356-8 #### [facility] LABORATORY CLIA [id number] [address] [place] Epithelial cells LM.HPF (Urine sed) [#/Area] Moderate Normal [facility] Comment on above: Order Comment: Speci men Type: URINE SPECIMEN Ordering Facility: [facility] Address: [address] [place] [address] Performed By: #### 2 4356-8 #### [facility] CLIA [id number] [address] Glucose Test strip (U) [Mass/Vol] Negative Normal Negative [facility] Comment on above: Order Comment: Speci men Type: URINE SPECIMEN Ordering Facility: [facility] Address: [address] [place] [address] Performed By: #### 2 4356-8 #### [facility] CLIA [id number] [address] Hemoglobin Ql (U) Trace Abnormal Negative [facility] Comment on above: Order Comment: Speci men Type: URINE SPECIMEN Ordering Facility: [facility] Address: [address] [place] [address] Performed By: #### 2 4356-8 #### [facility] CLIA [id number] 1000 [place] [address] [place] Ketones Ql (U) 3+ Abnormal Negative [facility] Comment on above: Order Comment: Speci men Type: URINE SPECIMEN Ordering Facility: [facility] Address: [address] [place] [address] Performed By: #### 2 4356-8 #### [facility] CLIA [id number] [address] Leukocyte esterase Test strip Ql (U) Negative Normal Negative [facility] Comment on above: Order Comment: Speci men Type: URINE SPECIMEN Ordering Facility: [facility] Address: [address] [place] [address] Performed By: #### 2 4356-8 #### [facility] CLIA [id number] 1000 [place] [address] [place] Nitrite Ql (U) Negative Normal Negative [facility] Comment on above: Order Comment: Speci men Type: URINE SPECIMEN Ordering Facility: [facility] Address: [address] [place] [address] Performed By: #### 2 4356-8 #### [facility] CLIA [id number] [address] [place] pH (U) 6.0 [pH] Normal 5.0-8.0 [facility] Comment on above: Order Comment: Speci men Type: URINE SPECIMEN Ordering Facility: [facility] Address: [address] [place] [address] Performed By: #### 2 4356-8 #### [facility] CLIA [id number] [address] [place] Protein (U) [Mass/Vol] Negative Normal Negative [facility] Comment on above: Order Comment: Speci men Type: URINE SPECIMEN Ordering Facility: [facility] Address: [address] [place] [address] Performed By: #### 2 4356-8 #### [facility] CLIA [id number] [address] [place] RBC LM.HPF (Urine sed) [#/Area] 0-3 /HPF Normal 0-3 /HPF [facility] Comment on above: Order Comment: Speci men Type: URINE SPECIMEN Ordering Facility: [facility] Address: [address] [place] [address] Performed By: #### 2 4356-8 #### [facility] CLIA [id number] [address] Specific gravity (U) [Rel density] 1.025 Normal 1.005-1.030 [facility] Comment on above: Order Comment: Speci men Type: URINE SPECIMEN Ordering Facility: [facility] Address: [address] [place] [address] Performed By: #### 2 4356-8 #### [facility] CLIA [id number] [address] Urobilinogen Ql (U) 0.2 EU/dL Normal 0.2-1.0 EU/dL [facility] Comment on above: Order Comment: Speci men Type: URINE SPECIMEN Ordering Facility: [facility] Address: [address] [place] [address] Performed By: #### 2 4356-8 #### [facility] CLIA [id number] [address] [place] [address] [place] WBC LM.HPF (Urine sed) [#/Area] 0-5 /HPF Normal 0-5 /HPF [facility] Comment on above: Order Comment: Speci men Type: URINE SPECIMEN Ordering Facility: [facility] Address: [address] [place] [address] Performed By: #### 2 4356-8 #### [facility] CLIA [id number] [address] [place] CBC W Auto Differential pane l (Bld)on 06-21-2023 Basophils (Bld) [#/Vol] 0.03 10*3/uL [facility] Basophils/100 WBC (Bld) 0.6 % 0.0 - 2.0 % [facility] Eosinophils (Bld) [#/Vol] 0.08 10*3/uL [facility] Eosinophils/100 WBC (Bld) 1.6 % 0.0 - 6.0 % [facility] Erythrocyte distribution width (RBC) [Ratio] 14.7 % High 11.5 - 14.5 % [facility] Hematocrit (Bld) [Volume fraction] 44.4 % 36.0 - 46.0 % [facility] Hemoglobin (Bld) [Mass/Vol] 14.5 g/dL 12.0 - 16.0 g/dL [facility] Immature granulocytes (Bld) [#/Vol] 0.01 10*3/uL [facility] Immature granulocytes/100 WBC (Bld) 0.2 % 0.0 - 0.9 % [facility] Comment on above: Immature Granulocyte Count (IG) includes promyelocytes, myelocytes and metamyelocytes but does not include bands. Percent differential counts (%) should be interpreted in the context of the absolute cell counts (cells/UL). Interpretation and review of laboratory results Abnormal [facility] Lymphocytes (Bld) [#/Vol] 1.85 10*3/uL [facility] Lymphocytes/100 WBC (Bld) 36.6 % 13.0 - 44.0 % [facility] MCH (RBC) [Entitic mass] 28.1 pg 26.0 - 34.0 pg [facility] MCHC (RBC) [Mass/Vol] 32.7 g/dL 32.0 - 36.0 g/dL [facility] MCV (RBC) [Entitic vol] 86 fL 80 - 100 fL [facility] Monocytes (Bld) [#/Vol] 0.32 10*3/uL [facility] Monocytes/100 WBC (Bld) 6.3 % 2.0 - 10.0 % [facility] Neutrophils (Bld) [#/Vol] 2.77 10*3/uL [facility] Comment on above: Percent differential counts (%) should be interpreted in the context of the absolute cell counts (cells/uL). Neutrophils/100 WBC (Bld) 54.7 % 40.0 - 80.0 % [facility] Nucleated RBC/100 WBC (Bld) [Ratio] 0.0 % [facility] Platelets (Bld) [#/Vol] 199 10*3/uL [facility] RBC (Bld) [#/Vol] 5.16 10*6/uL [facility] WBC (Bld) [#/Vol] 5.1 10*3/uL [facility] Basophils (Bld) [#/Vol] 0.03 x10*3/uL Normal 0.00-0.10 [facility] Comment on above: Performed By: #### 5 8077-9 #### MELISSA WHITEHEAD ([id number]) [facility] ([facility]) [address] [place] [address] 23848 Basophils/100 WBC (Bld) 0.6 % Normal 0.0-2.0 U [facility] Comment on above: Performed By: #### 5 8077-9 #### MELISSA WHITEHEAD ([id number]) [facility] ([facility]) [address] [place] [address] 90597 Eosinophils (Bld) [#/Vol] 0.08 x10*3/uL Normal 0.00-0.70 [facility] Comment on above: Performed By: #### 5 8077-9 #### MELISSA WHITEHEAD ([id number]) [facility] ([facility]) [address] [place] [address] 68515 Eosinophils/100 WBC (Bld) 1.6 % Normal 0.0-6.0 [facility] Comment on above: Performed By: #### 5 8077-9 #### MELISSA WHITEHEAD ([id number]) [facility] ([facility]) [address] [place] [address] 59706 Erythrocyte distribution width (RBC) [Ratio] 14.7 % High 11.5-14.5 [facility] Comment on above: Performed By: #### 5 8077-9 #### MELISSA WHITEHEAD ([id number]) [facility] ([facility]) [address] [place] [address] Hematocrit (Bld) [Volume fraction] 44.4 % Normal 36.0-46.0 [facility] Comment on above: Performed By: #### 5 8077-9 #### MELISSA WHITEHEAD ([id number]) [facility] ([facility]) [address] [place] [address] 28626 Hemoglobin (Bld) [Mass/Vol] 14.5 g/dL Normal 12.0-16.0 [facility] Comment on above: Performed By: #### 5 8077-9 #### MELISSA WHITEHEAD ([id number]) [facility] ([facility]) [address] [place] [address] 01596 Immature granulocytes (Bld) [#/Vol] 0.01 x10*3/uL Normal 0.00-0.70 [facility] Comment on above: Performed By: #### 5 8077-9 #### MELISSA WHITEHEAD ([id number]) [facility] ([facility]) [address] [place] [address] 11029 Immature granulocytes/100 WBC (Bld) 0.2 % Normal 0.0-0.9 [facility] Comment on above: Result Comment: Betty ture Granulocyte Count (IG) includes promyelocytes, myelocytes and metamyelocytes but does not include bands. Percent differential counts (%) should be interpreted in the context of the absolute cell counts (cells/UL). Performed By: #### 5 8077-9 #### MELISSA WHITEHEAD ([id number]) [facility] ([facility]) [address] [place] [address] 53069 Lymphocytes (Bld) [#/Vol] 1.85 x10*3/uL Normal 1.20-4.80 [facility] Comment on above: Performed By: #### 5 8077-9 #### MELISSA WHITEHEAD ([id number]) [facility] ([facility]) [address] [place], [place] [address] Lymphocytes/100 WBC (Bld) 36.6 % Normal 13.0-44.0 [facility] Comment on above: Performed By: #### 5 8077-9 #### MELISSA WHITEHEAD ([id number]) [facility] ([facility]) [address] [place] [address] 67641 MCH (RBC) [Entitic mass] 28.1 pg Normal 26.0-34.0 [facility] Comment on above: Performed By: #### 5 8077-9 #### MELISSA WHITEHEAD ([id number]) [facility] ([facility]) [address] [place] [address] 64418 MCHC (RBC) [Mass/Vol] 32.7 g/dL Normal 32.0-36.0 [facility] Comment on above: Performed By: #### 5 8077-9 #### MELISSA WHITEHEAD ([id number]) [facility] ([facility]) [address] [place] [address] 65234 MCV (RBC) [Entitic vol] 86 fL Normal 80-100 U [facility] Comment on above: Performed By: #### 5 8077-9 #### MELISSA WHITEHEAD ([id number]) [facility] ([facility]) [address] [place] [address] 35049 Monocytes (Bld) [#/Vol] 0.32 x10*3/uL Normal 0.10-1.00 [facility] Comment on above: Performed By: #### 5 8077-9 #### MELISSA WHITEHEAD ([id number]) [facility] ([facility]) [facility] [place] [address] Monocytes/100 WBC (Bld) 6.3 % Normal 2.0-10.0 U [facility] Comment on above: Performed By: #### 5 8077-9 #### MELISSA WHITEHEAD ([id number]) [facility] ([facility]) [address] [place] [address] 71883 Neutrophils (Bld) [#/Vol] 2.77 x10*3/uL Normal 1.20-7.70 [facility] Comment on above: Result Comment: Perc ent differential counts (%) should be interpreted in the context of the absolute cell counts (cells/uL). Performed By: #### 5 8077-9 #### MELISSA WHITEHEAD ([id number]) [facility] ([facility]) [address] [place] [address] 75962 Neutrophils/100 WBC (Bld) 54.7 % Normal 40.0-80.0 [facility] Comment on above: Performed By: #### 5 8077-9 #### MELISSA WHITEHEAD ([id number]) [facility] ([facility]) [address] [place] [address] 91711 Nucleated RBC/100 WBC (Bld) [Ratio] 0.0 /100 WBCs Normal 0.0-0.0 [facility] Comment on above: Performed By: #### 5 8077-9 #### MELISSA WHITEHEAD ([id number]) [facility] ([facility]) [address] [place] [address] 09592 Platelets (Bld) [#/Vol] 199 x10*3/uL Normal 150-450 [facility] Comment on above: Performed By: #### 5 8077-9 #### MELISSA WHITEHEAD ([id number]) [facility] ([facility]) [address] [place] [address] 80755 RBC (Bld) [#/Vol] 5.16 x10*6/uL Normal 4.00-5.20 [facility] Comment on above: Performed By: #### 5 8077-9 #### MELISSA WHITEHEAD ([id number]) [facility] ([facility]) [address] [place] [address] WBC (Bld) [#/Vol] 5.1 x10*3/uL Normal 4.4-11.3 [facility] Comment on above: Performed By: #### 5 8077-9 #### TORRES VENTURA ([id number]) [facility] ([facility]) [id number] ANGIO CHEST FOR PULMONARY EMBOLISMon 06-21-2023 CT ANGIO CHEST FOR PULMONARY EMBOLISM Interpreted By: Rosa Chavarria, STUDY: CT ANGIO CHEST FOR PULMONARY EMBOLISM; 06/21/2023 9:16 am INDICATION: Signs/Symptoms:dyspn ea. History of laparoscopic cholecystectomy on 06/17/2023 with subsegmental pulmonary embolus demonstrated in right lower lobe on CT examination of abdomen and pelvis from 06/19/2023 COMPARISON: None.. ACCESSION NUMBER(S): [id number] ORDERING CLINICIAN: SATURNINO VELÁZQUEZ TECHNIQUE: CT angiography [...] Rosa Chavarria 06/21/2023 9:34 AM Dictation workstation: [id number] [facility] CT Chest W contrast IV and [...] Rosa Chavarria 06/21/2023 9:34 AM Dictation workstation: [id number] [facility] Interpreted By: Rosa Chavarria, STUDY: CT ANGIO CHEST FOR PULMONARY EMBOLISM; 06/21/2023 9:16 am INDICATION: Signs/Symptoms:dyspn ea. History of laparoscopic cholecystectomy on 06/17/2023 with subsegmental pulmonary embolus demonstrated in right lower lobe on CT examination of abdomen and pelvis from 06/19/2023 COMPARISON: None.. ACCESSION NUMBER(S): [id number] ORDERING CLINICIAN: SATURNINO VELÁZQUEZ TECHNIQUE: CT angiography [...] There are surgical clips within gallbladder fossa. [facility] Rosa Chavarria MD - 06/21/2023 Interpreted By: Rosa Chavarria, STUDY: CT ANGIO CHEST FOR PULMONARY EMBOLISM; 06/21/2023 9:16 am INDICATION: Signs/Symptoms:dyspn ea. History of laparoscopic cholecystectomy on 06/17/2023 with subsegmental pulmonary embolus demonstrated in right lower lobe on CT examination of abdomen and pelvis from 06/19/2023 COMPARISON: None.. ACCESSION NUMBER(S): [id number] ORDERING CLINICIAN: SATURNINO VELÁZQUEZ TECHNIQUE: CT angiography [...] Rosa Chavarria 06/21/2023 9:34 AM Dictation workstation: [id number] [facility] Work Phone: Radiology Study observation (narrative) [facility] Work Phone: CT Chest W contrast IV and C T angiogram Pulmonary arteries for pulmonary embolus W contrast IVOrdered By: Rosa Chavarria on 06-21-2023 [facility] Work Phone: Comprehensive metabolic 2000 panelon 06-21-2023 Albumin BCP dye [Mass/Vol] 4.6 g/dL 3.4 - 5.0 g/dL [facility] ALP [Catalytic activity/Vol] 57 U/L 33 - 110 U/L [facility] ALT With P-5'-P [Catalytic activity/Vol] 36 U/L 7 - 45 U/L [facility] Comment on above: Patients treated wit h Sulfasalazine may generate falsely decreased results for ALT. Anion gap [Moles/Vol] 17 mmol/L 10 - 20 mmol/L [facility] AST With P-5'-P [Catalytic activity/Vol] 16 U/L 9 - 39 U/L [facility] Bilirubin [Mass/Vol] 0.8 mg/dL 0.0 - 1.2 mg/dL [facility] Calcium [Mass/Vol] 9.1 mg/dL 8.6 - 10. 3 mg/dL [facility] Chloride [Moles/Vol] 100 mmol/L 98 - 107 mmol/L [facility] CO2 [Moles/Vol] 20 mmol/L Low 21 - 32 mmol/L [facility] Creatinine [Mass/Vol] 0.81 mg/dL 0.50 - 1.05 mg/dL [facility] eGFR - PINF [facility] Comment on above: Calculations of nick mated GFR are performed using the 2020 CKD-EPI Study Refit equation without the race variable for the IDMS-Traceable creatinine methods. https://jasn.asnjournals.org/content//22/ASN.2020 165860 Glucose [Mass/Vol] 68 mg/dL Low 74 - 99 mg/dL [facility] Interpretation and review of laboratory results Abnormal [facility] Potassium [Moles/Vol] 3.6 mmol/L 3.5 - 5.3 mmol/L [facility] Protein [Mass/Vol] 6.6 g/dL 6.4 - 8.2 g/dL [facility] Sodium [Moles/Vol] 133 mmol/L Low 136 - 145 mmol/L [facility] Urea nitrogen [Mass/Vol] 10 mg/dL 6 - 23 mg/dL [facility] Albumin BCP dye [Mass/Vol] 4.6 g/dL Normal 3.4-5.0 [facility] Comment on above: Performed By: #### 5 8077-9 #### MELISSA WHITEHEAD ([id number]) [facility] ([facility]) [address] [place] [address] ALP [Catalytic activity/Vol] 57 U/L Normal 33-110 [facility] Comment on above: Performed By: #### 5 8077-9 #### MELISSA WHITEHEAD ([id number]) [facility] ([facility]) [address] [place] [address] ALT With P-5'-P [Catalytic activity/Vol] 36 U/L Normal 7-45 [facility] Comment on above: Result Comment: Gema ents treated with Sulfasalazine may generate falsely decreased results for ALT. Performed By: #### 5 8077-9 #### MELISSA WHITEHEAD ([id number]) [facility] ([facility]) [facility] [place] [address] Anion gap [Moles/Vol] 17 mmol/L Normal 10-20 [facility] Comment on above: Performed By: #### 5 8077-9 #### MELISSA WHITEHEAD ([id number]) [facility] ([facility]) [address] [place] [address] 37052 AST With P-5'-P [Catalytic activity/Vol] 16 U/L Normal 9-39 [facility] Comment on above: Performed By: #### 5 8077-9 #### MELISSA WHITEHEAD ([id number]) [facility] ([facility]) [facility] [place] [address] Bilirubin [Mass/Vol] 0.8 mg/dL Normal 0.0-1.2 [facility] Comment on above: Performed By: #### 5 8077-9 #### MELISSA WHITEHEAD ([id number]) [facility] ([facility]) [address] [place] [address] 65913 Calcium [Mass/Vol] 9.1 mg/dL Normal 8.6-10.3 [facility] Comment on above: Performed By: #### 5 8077-9 #### MELISSA WHITEHEAD ([id number]) [facility] ([facility]) [address] [place] [address] 79269 Chloride [Moles/Vol] 100 mmol/L Normal 98-107 [facility] Comment on above: Performed By: #### 5 8077-9 #### MELISSA WHITEHEAD ([id number]) [facility] ([facility]) [facility] [place] [address] CO2 [Moles/Vol] 20 mmol/L Low 21-32 [facility] Comment on above: Performed By: #### 5 8077-9 #### MELISSA WHITEHEAD ([id number]) [facility] ([facility]) [address] [place] [address] 49890 Creatinine [Mass/Vol] 0.81 mg/dL Normal 0.50-1.05 [facility] Comment on above: Performed By: #### 5 8077-9 #### MELISSA WHITEHEAD ([id number]) [facility] ([facility]) [address] [place] [address] 65261 GFR/1.73 sq M.predicted MDRD (S/P/Bld) [Vol rate/Area] mL/min/{1.73_m2} Normal >60 [facility] Comment on above: Result Comment: Calc ulations of estimated GFR are performed using the 2020 CKD-EPI Study Refit equation without the race variable for the IDMS-Traceable creatinine methods. https://jasn.asnjournals.org/content/ 725078 Performed By: #### 5 8077-9 #### MELISSA WHITEHEAD ([id number]) [facility] ([facility]) [address] [place] [address] 31072 Glucose [Mass/Vol] 68 mg/dL Low 74-99 [facility] Comment on above: Performed By: #### 5 8077-9 #### MELISSA WHITEHEAD ([id number]) [facility] ([facility]) [address] [place] [address] 66097 Potassium [Moles/Vol] 3.6 mmol/L Normal 3.5-5.3 [facility] Comment on above: Performed By: #### 5 8077-9 #### MELISSA WHITEHEAD ([id number]) [facility] ([facility]) [address] [place] [address] 67668 Protein [Mass/Vol] 6.6 g/dL Normal 6.4-8.2 [facility] Comment on above: Performed By: #### 5 8077-9 #### MELISSA WHITEHEAD ([id number]) [facility] ([facility]) [address] [place] [address] 08782 Sodium [Moles/Vol] 133 mmol/L Low 136-145 [facility] Comment on above: Performed By: #### 5 8077-9 #### MELISSA WHITEHEAD ([id number]) [facility] ([facility]) [address] [place] [address] 69406 Urea nitrogen [Mass/Vol] 10 mg/dL Normal 6-23 [facility] Comment on above: Performed By: #### 5 8077-9 #### MELISSA WHITEHEAD ([id number]) [facility] ([facility]) [address] [place] [address] 01433 ECG 12-LEADon 06-21-2023 ECG 12-LEAD Ventricular Rate 77 Atrial Rate 77 P-R Interval 120 QRS Duration 84 Q-T Interval 394 QTC Calculation(Bazett) 445 P [place] 76 R [place] 91 T [place] 32 QRS Count 13 Q Onset 223 [...] and clinical correlation Confirmed by Eugene Mccormick ([id number]) on 07/02/2023 1:17:49 PM Normal [facility] Tropinin I.cardiac panel Hig h sensitivity methodon 06-21-2023 Interpretation and review of laboratory results Normal [facility] Less than 99th percentile of normal range [...] performed using a different testing methodology at [facility] than at other [facility]. Direct result comparisons should only be made within the same method. [facility] Troponin I, High Sensitivity on 06-21-2023 Tropinin I.cardiac panel High sensitivity method ng/L 0 - 13 ng/L [facility] Troponin I.cardiac panelon 0 06-21-2023 Tropinin I.cardiac panel High sensitivity method <3 Normal 0-13 [facility] Comment on above: Order Comment: Less than [...] is performed using a differenttesting methodology at [facility] than at [facility]. Direct result comparisons should onlybe made within the same method. Performed By: #### 5 8077-9 #### TORRES VENTURA ([id number]) [facility] ([facility]) [address] [place] [address] Basic metabolic 2000 panelon 06-20-2023 Anion gap [Moles/Vol] 14 mmol/L 10 - 20 mmol/L [facility] Calcium [Mass/Vol] 8.6 mg/dL 8.6 - 10. 3 mg/dL [facility] Chloride [Moles/Vol] 101 mmol/L 98 - 107 mmol/L [facility] CO2 [Moles/Vol] 20 mmol/L Low 21 - 32 mmol/L [facility] Creatinine [Mass/Vol] 0.80 mg/dL 0.50 - 1.05 mg/dL [facility] eGFR - PINF [facility] Comment on above: Calculations of nick mated GFR are performed using the 2020 CKD-EPI Study Refit equation without the race variable for the IDMS-Traceable creatinine methods. https://jasn.asnjournals.org/content//ASN.2020 782014 Glucose [Mass/Vol] 98 mg/dL 74 - 99 mg/dL [facility] Interpretation and review of laboratory results Abnormal [facility] Potassium [Moles/Vol] 3.7 mmol/L 3.5 - 5.3 mmol/L [facility] Sodium [Moles/Vol] 131 mmol/L Low 136 - 145 mmol/L [facility] Urea nitrogen [Mass/Vol] 7 mg/dL 6 - 23 mg/dL [facility] Anion gap [Moles/Vol] 14 mmol/L Normal 10-20 [facility] Comment on above: Performed By: #### 5 8077-9 #### MELISSA WHITEHEAD ([id number]) [facility] ([facility]) [facility] [place] [address] Calcium [Mass/Vol] 8.6 mg/dL Normal 8.6-10.3 [facility] Comment on above: Performed By: #### 5 8077-9 #### MELISSA WHITEHEAD ([id number]) [facility] ([facility]) [address] [place] [address] 09085 Chloride [Moles/Vol] 101 mmol/L Normal 98-107 [facility] Comment on above: Performed By: #### 5 8077-9 #### MELISSA WHITEHEAD ([id number]) [facility] ([facility]) [address] [place] [address] 67125 CO2 [Moles/Vol] 20 mmol/L Low 21-32 [facility] Comment on above: Performed By: #### 5 8077-9 #### MELISSA WHITEHEAD ([id number]) [facility] ([facility]) [address] [place] [address] 46095 Creatinine [Mass/Vol] 0.80 mg/dL Normal 0.50-1.05 [facility] Comment on above: Performed By: #### 5 8077-9 #### MELISSA WHITEHEAD ([id number]) [facility] ([facility]) [address] [place] [address] 26151 GFR/1.73 sq M.predicted MDRD (S/P/Bld) [Vol rate/Area] mL/min/{1.73_m2} Normal >60 [facility] Comment on above: Result Comment: Calc ulations of estimated GFR are performed using the 2020 CKD-EPI Study Refit equation without the race variable for the IDMS-Traceable creatinine methods. https://jasn.asnjournals.org/content/early//ASN.2020 692856 Performed By: #### 5 8077-9 #### MELISSA WHITEHEAD ([id number]) [facility] ([facility]) [address] [place] [address] 37239 Glucose [Mass/Vol] 98 mg/dL Normal 74-99 [facility] Comment on above: Performed By: #### 5 8077-9 #### MELISSA WHITEHEAD ([id number]) [facility] ([facility]) [address] [place] [address] 03317 Potassium [Moles/Vol] 3.7 mmol/L Normal 3.5-5.3 [facility] Comment on above: Performed By: #### 5 8077-9 #### MELISSA WHITEHEAD ([id number]) [facility] ([facility]) [address] [place] [address] 19354 Sodium [Moles/Vol] 131 mmol/L Low 136-145 [facility] Comment on above: Performed By: #### 5 8077-9 #### MELISSA WHITEHEAD ([id number]) [facility] ([facility]) [address] [place] [address] 93165 Urea nitrogen [Mass/Vol] 7 mg/dL Normal 6-23 [facility] Comment on above: Performed By: #### 5 8077-9 #### MELISSA WHITEHEAD ([id number]) [facility] ([facility]) [address] [place] [address] 30311 CBC panel Auto (Bld)on 06-19 Erythrocyte distribution width (RBC) [Ratio] 14.4 % 11.5 - 14.5 % [facility] Hematocrit (Bld) [Volume fraction] 41.9 % 36.0 - 46.0 % [facility] Hemoglobin (Bld) [Mass/Vol] 13.9 g/dL 12.0 - 16.0 g/dL [facility] Interpretation and review of laboratory results Normal [facility] MCH (RBC) [Entitic mass] 28.6 pg 26.0 - 34.0 pg [facility] MCHC (RBC) [Mass/Vol] 33.2 g/dL 32.0 - 36.0 g/dL [facility] MCV (RBC) [Entitic vol] 86 fL 80 - 100 fL [facility] Nucleated RBC/100 WBC (Bld) [Ratio] 0.0 % [facility] Platelets (Bld) [#/Vol] 235 10*3/uL [facility] RBC (Bld) [#/Vol] 4.86 10*6/uL [facility] WBC (Bld) [#/Vol] 6.5 10*3/uL [facility] Erythrocyte distribution width (RBC) [Ratio] 14.4 % Normal 11.5-14.5 [facility] Comment on above: Performed By: #### 5 8077-9 #### MELISSA WHITEHEAD ([id number]) [facility] ([facility]) [address] [place] [address] 24878 Hematocrit (Bld) [Volume fraction] 41.9 % Normal 36.0-46.0 [facility] Comment on above: Performed By: #### 5 8077-9 #### MELISSA WHITEHEAD ([id number]) [facility] ([facility]) [address] [place] [address] 83003 Hemoglobin (Bld) [Mass/Vol] 13.9 g/dL Normal 12.0-16.0 [facility] Comment on above: Performed By: #### 5 8077-9 #### MELISSA WHITEHEAD ([id number]) [facility] ([facility]) [address] [place] [address] 15699 MCH (RBC) [Entitic mass] 28.6 pg Normal 26.0-34.0 [facility] Comment on above: Performed By: #### 5 8077-9 #### MELISSA WHITEHEAD ([id number]) [facility] ([facility]) [address] [place] [address] 26984 MCHC (RBC) [Mass/Vol] 33.2 g/dL Normal 32.0-36.0 [facility] Comment on above: Performed By: #### 5 8077-9 #### MELISSA WHITEHEAD ([id number]) [facility] ([facility]) [address] [place] [address] 95783 MCV (RBC) [Entitic vol] 86 fL Normal 80-100 U [facility] Comment on above: Performed By: #### 5 8077-9 #### MELISSA WHITEHEAD ([id number]) [facility] ([facility]) [address] [place] [address] 80695 Nucleated RBC/100 WBC (Bld) [Ratio] 0.0 /100 WBCs Normal 0.0-0.0 [facility] Comment on above: Performed By: #### 5 8077-9 #### MELISSA WHITEHEAD ([id number]) [facility] ([facility]) [address] [place] [address] 18186 Platelets (Bld) [#/Vol] 235 x10*3/uL Normal 150-450 [facility] Comment on above: Performed By: #### 5 8077-9 #### MELISSA WHITEHEAD ([id number]) [facility] ([facility]) [address] [place] [address] 21587 RBC (Bld) [#/Vol] 4.86 x10*6/uL Normal 4.00-5.20 [facility] Comment on above: Performed By: #### 5 8077-9 #### MELISSA WHITEHEAD ([id number]) [facility] ([facility]) [address] [place] [address] 99034 WBC (Bld) [#/Vol] 6.5 x10*3/uL Normal 4.4-11.3 [facility] Comment on above: Performed By: #### 5 8077-9 #### MELISSA WHITEHEAD ([id number]) [facility] ([facility]) [address] [place] [address] 82384 Extra Urine Emerson Tubeon - Extra Tube Hold for add-ons. [facility] Comment on above: Auto resulted. [facility] NM HEPATOBILIARYon NM HEPATOBILIARY Interpreted By: Jonathan Shannon and Bartolomei Aguilar Christopher STUDY: NM HEPATOBILIARY; 06/20/2023 7:34 am INDICATION: Signs/Symptoms:rule out biliary leak. COMPARISON: None. ACCESSION NUMBER(S): [id number] ORDERING CLINICIAN: ALLA LLANES TECHNIQUE: DIVISION OF [...] as stated. This study was interpreted at [place], [place]. MACRO: None Signed by: Jonathan Shannon 06/20/2023 10:09 AM Dictation workstation: [id number] [facility] NM Liver and Biliary ducts a nd Gallbladder Viewson 06-20-2023 Patient is status post cholecystectomy, without evidence of radiotracer extravasation to suggest bile leak. Enterogastric reflux is noted. I personally reviewed the images/study and I agree with the findings as stated. This study was interpreted at [place], [place]. MACRO: None Signed by: Jonathan Shannon 06/20/2023 10:09 AM Dictation workstation: [id number] [facility] Interpreted By: Jonathan Shannon and Bartolomei Aguilar Christopher STUDY: NM HEPATOBILIARY; 06/20/2023 7:34 am INDICATION: Signs/Symptoms:rule out biliary leak. COMPARISON: None. ACCESSION NUMBER(S): [id number] ORDERING CLINICIAN: ALLA LLANES TECHNIQUE: DIVISION OF [...] out biliary leak. COMPARISON: None. ACCESSION NUMBER(S): [id number] ORDERING CLINICIAN: ALLA LLANES TECHNIQUE: DIVISION OF [...] as stated. This study was interpreted at [place], [place]. MACRO: None Signed by: Jonathan Shannon 06/20/2023 10:09 AM Dictation workstation: [id number] [facility] Work Phone: Radiology Study observation (narrative) [facility] Work Phone: NM Liver and Biliary ducts a nd Gallbladder ViewsOrdered By: Jonathan Shannon on 06-20-2023 [facility] Work Phone: Basic metabolic 2000 panelon 06-19-2023 Anion gap [Moles/Vol] 20 mmol/L 10 - 20 mmol/L [facility] Calcium [Mass/Vol] 9.1 mg/dL 8.6 - 10. 3 mg/dL [facility] Chloride [Moles/Vol] 98 mmol/L 98 - 107 mmol/L [facility] CO2 [Moles/Vol] 16 mmol/L Low 21 - 32 mmol/L [facility] Creatinine [Mass/Vol] 0.65 mg/dL 0.50 - 1.05 mg/dL [facility] eGFR - PINF [facility] Comment on above: Calculations of nick mated GFR are performed using the 2020 CKD-EPI Study Refit equation without the race variable for the IDMS-Traceable creatinine methods. https://jasn.asnjournals.org/content//ASN.2020 463511 Glucose [Mass/Vol] 74 mg/dL 74 - 99 mg/dL [facility] Potassium [Moles/Vol] 4.4 mmol/L 3.5 - 5.3 mmol/L [facility] Sodium [Moles/Vol] 130 mmol/L Low 136 - 145 mmol/L [facility] Comment on above: Confirmed by repeat analysis Urea nitrogen [Mass/Vol] 7 mg/dL 6 - 23 mg/dL [facility] Anion gap [Moles/Vol] 20 mmol/L Normal 10-20 [facility] Comment on above: Performed By: #### 2 4321-2 #### MELISSA WHITEHEAD ([id number]) [facility] ([facility]) [address] [place] [address] 03447 Calcium [Mass/Vol] 9.1 mg/dL Normal 8.6-10.3 [facility] Comment on above: Performed By: #### 2 4321-2 #### MELISSA WHITEHEAD ([id number]) [facility] ([facility]) [facility] [place] [address] Chloride [Moles/Vol] 98 mmol/L Normal 98-107 [facility] Comment on above: Performed By: #### 2 4321-2 #### MELISSA WHITEHEAD ([id number]) [facility] ([facility]) [address] [place] [address] 98130 CO2 [Moles/Vol] 16 mmol/L Low 21-32 [facility] Comment on above: Performed By: #### 2 4321-2 #### MELISSA WHITEHEAD ([id number]) [facility] ([facility]) [address] [place] [address] 18534 Creatinine [Mass/Vol] 0.65 mg/dL Normal 0.50-1.05 [facility] Comment on above: Performed By: #### 2 4321-2 #### MELISSA WHITEHEAD ([id number]) [facility] ([facility]) [address] [place] [address] 86812 GFR/1.73 sq M.predicted MDRD (S/P/Bld) [Vol rate/Area] mL/min/{1.73_m2} Normal >60 [facility] Comment on above: Result Comment: Calc ulations of estimated GFR are performed using the 2020 CKD-EPI Study Refit equation without the race variable for the IDMS-Traceable creatinine methods. https://jasn.asnjournals.org/content/early//ASN.2020 457567 Performed By: #### 2 4321-2 #### MELISSA WHITEHEAD ([id number]) [facility] ([facility]) [address] [place] [address] 08112 Glucose [Mass/Vol] 74 mg/dL Normal 74-99 [facility] Comment on above: Performed By: #### 2 4321-2 #### MELISSA WHITEHEAD ([id number]) [facility] ([facility]) [address] [place] [address] 51697 Potassium [Moles/Vol] 4.4 mmol/L Normal 3.5-5.3 [facility] Comment on above: Performed By: #### 2 4321-2 #### MELISSA WHITEHEAD ([id number]) [facility] ([facility]) [address] [place] [address] 99314 Sodium [Moles/Vol] 130 mmol/L Low 136-145 [facility] Comment on above: Result Comment: Conf irmed by repeat analysis Performed By: #### 2 4321-2 #### MELISSA WHITEHEAD ([id number]) [facility] ([facility]) [address] [place] [address] 06912 Urea nitrogen [Mass/Vol] 7 mg/dL Normal 6-23 [facility] Comment on above: Performed By: #### 2 4321-2 #### TORRES VENTURA ([id number]) [facility] ([facility]) [address] [place] [address] CBC W Auto Differential pane l (Bld)on 06-19-2023 Basophils (Bld) [#/Vol] 0.01 10*3/uL [facility] Basophils/100 WBC (Bld) 0.2 % 0.0 - 2.0 % [facility] Eosinophils (Bld) [#/Vol] 0.01 10*3/uL [facility] Eosinophils/100 WBC (Bld) 0.2 % 0.0 - 6.0 % [facility] Erythrocyte distribution width (RBC) [Ratio] 14.1 % 11.5 - 14.5 % [facility] Hematocrit (Bld) [Volume fraction] 43.7 % 36.0 - 46.0 % [facility] Hemoglobin (Bld) [Mass/Vol] 14.2 g/dL 12.0 - 16.0 g/dL [facility] Immature granulocytes (Bld) [#/Vol] 0.01 10*3/uL [facility] Immature granulocytes/100 WBC (Bld) 0.2 % 0.0 - 0.9 % [facility] Comment on above: Immature Granulocyte Count (IG) includes promyelocytes, myelocytes and metamyelocytes but does not include bands. Percent differential counts (%) should be interpreted in the context of the absolute cell counts (cells/UL). Interpretation and review of laboratory results Abnormal [facility] Lymphocytes (Bld) [#/Vol] 0.64 10*3/uL Low [facility] Lymphocytes/100 WBC (Bld) 12.9 % 13.0 - 44.0 % [facility] MCH (RBC) [Entitic mass] 28.2 pg 26.0 - 34.0 pg [facility] MCHC (RBC) [Mass/Vol] 32.5 g/dL 32.0 - 36.0 g/dL [facility] MCV (RBC) [Entitic vol] 87 fL 80 - 100 fL [facility] Monocytes (Bld) [#/Vol] 0.10 10*3/uL [facility] Monocytes/100 WBC (Bld) 2.0 % 2.0 - 10.0 % [facility] Neutrophils (Bld) [#/Vol] 4.20 10*3/uL [facility] Comment on above: Percent differential counts (%) should be interpreted in the context of the absolute cell counts (cells/uL). Neutrophils/100 WBC (Bld) 84.5 % 40.0 - 80.0 % [facility] Nucleated RBC/100 WBC (Bld) [Ratio] 0.0 % [facility] Platelets (Bld) [#/Vol] 225 10*3/uL [facility] RBC (Bld) [#/Vol] 5.03 10*6/uL [facility] WBC (Bld) [#/Vol] 5.0 10*3/uL [facility] Basophils (Bld) [#/Vol] 0.01 x10*3/uL Normal 0.00-0.10 [facility] Comment on above: Performed By: #### 5 7021-8 #### MELISSA WHITEHEAD ([id number]) [facility] ([facility]) [address] [place] [address] 32235 Basophils/100 WBC (Bld) 0.2 % Normal 0.0-2.0 U [facility] Comment on above: Performed By: #### 5 7021-8 #### MELISSA WHITEHEAD ([id number]) [facility] ([facility]) [address] [place] [address] 04301 Eosinophils (Bld) [#/Vol] 0.01 x10*3/uL Normal 0.00-0.70 [facility] Comment on above: Performed By: #### 5 7021-8 #### MELISSA WHITEHEAD ([id number]) [facility] ([facility]) [address] [place] [address] 61330 Eosinophils/100 WBC (Bld) 0.2 % Normal 0.0-6.0 [facility] Comment on above: Performed By: #### 5 7021-8 #### MELISSA WHITEHEAD ([id number]) [facility] ([facility]) [address] [place] [address] Erythrocyte distribution width (RBC) [Ratio] 14.1 % Normal 11.5-14.5 [facility] Comment on above: Performed By: #### 5 7021-8 #### MELISSA WHITEHEAD ([id number]) [facility] ([facility]) [address] [place] [address] Hematocrit (Bld) [Volume fraction] 43.7 % Normal 36.0-46.0 [facility] Comment on above: Performed By: #### 5 7021-8 #### MELISSA WHITEHEAD ([id number]) [facility] ([facility]) [address] [place] [address] Hemoglobin (Bld) [Mass/Vol] 14.2 g/dL Normal 12.0-16.0 [facility] Comment on above: Performed By: #### 5 7021-8 #### MELISSA WHITEHEAD ([id number]) [facility] ([facility]) [address] [place] [address] Immature granulocytes (Bld) [#/Vol] 0.01 x10*3/uL Normal 0.00-0.70 [facility] Comment on above: Performed By: #### 5 7021-8 #### MELISSA WHITEHEAD ([id number]) [facility] ([facility]) [address] [place] [address] Immature granulocytes/100 WBC (Bld) 0.2 % Normal 0.0-0.9 [facility] Comment on above: Result Comment: Betty ture Granulocyte Count (IG) includes promyelocytes, myelocytes and metamyelocytes but does not include bands. Percent differential counts (%) should be interpreted in the context of the absolute cell counts (cells/UL). Performed By: #### 5 7021-8 #### MELISSA WHITEHEAD ([id number]) [facility] ([facility]) [address] [place] [address] Lymphocytes (Bld) [#/Vol] 0.64 x10*3/uL Low 1.20-4.80 [facility] Comment on above: Performed By: #### 5 7021-8 #### MELISSA WHITEHEAD ([id number]) [facility] ([facility]) [address] [place] [address] 12901 Lymphocytes/100 WBC (Bld) 12.9 % Normal 13.0-44.0 [facility] Comment on above: Performed By: #### 5 7021-8 #### MELISSA WHITEHEAD ([id number]) [facility] ([facility]) [address] [place] [address] 86265 MCH (RBC) [Entitic mass] 28.2 pg Normal 26.0-34.0 [facility] Comment on above: Performed By: #### 5 7021-8 #### MELISSA WHITEHEAD ([id number]) [facility] ([facility]) [address] [place] [address] MCHC (RBC) [Mass/Vol] 32.5 g/dL Normal 32.0-36.0 [facility] Comment on above: Performed By: #### 5 7021-8 #### MELISSA WHITEHEAD ([id number]) [facility] ([facility]) [address] [place] [address] 58681 MCV (RBC) [Entitic vol] 87 fL Normal 80-100 U [facility] Comment on above: Performed By: #### 5 7021-8 #### MELISSA WHITEHEAD ([id number]) [facility] ([facility]) [address] [place] [address] 26670 Monocytes (Bld) [#/Vol] 0.10 x10*3/uL Normal 0.10-1.00 [facility] Comment on above: Performed By: #### 5 7021-8 #### MELISSA WHITEHEAD ([id number]) [facility] ([facility]) [address] [place] [address] 56676 Monocytes/100 WBC (Bld) 2.0 % Normal 2.0-10.0 U [facility] Comment on above: Performed By: #### 5 7021-8 #### MELISSA WHITEHEAD ([id number]) [facility] ([facility]) [address] [place] [address] 50911 Neutrophils (Bld) [#/Vol] 4.20 x10*3/uL Normal 1.20-7.70 [facility] Comment on above: Result Comment: Perc ent differential counts (%) should be interpreted in the context of the absolute cell counts (cells/uL). Performed By: #### 5 7021-8 #### MELISSA WHITEHEAD ([id number]) [facility] ([facility]) [address] [place] [address] 69516 Neutrophils/100 WBC (Bld) 84.5 % Normal 40.0-80.0 [facility] Comment on above: Performed By: #### 5 7021-8 #### MELISSA WHITEHEAD ([id number]) [facility] ([facility]) [address] [place] [address] 81095 Nucleated RBC/100 WBC (Bld) [Ratio] 0.0 /100 WBCs Normal 0.0-0.0 [facility] Comment on above: Performed By: #### 5 7021-8 #### MELISSA WHITEHEAD ([id number]) [facility] ([facility]) [address] [place] [address] 99026 Platelets (Bld) [#/Vol] 225 x10*3/uL Normal 150-450 [facility] Comment on above: Performed By: #### 5 7021-8 #### MELISSA WHITEHEAD ([id number]) [facility] ([facility]) [address] [place] [address] 60267 RBC (Bld) [#/Vol] 5.03 x10*6/uL Normal 4.00-5.20 [facility] Comment on above: Performed By: #### 5 7021-8 #### MELISSA WHITEHEAD ([id number]) [facility] ([facility]) [address] [place] [address] 85997 WBC (Bld) [#/Vol] 5.0 x10*3/uL Normal 4.4-11.3 [facility] Comment on above: Performed By: #### 5 7021-8 #### MELISSA WHITEHEAD ([id number]) [facility] ([facility]) [address] [place] [id number] ABDOMEN PELVIS W IV CONTR Cortney [...] AM -------- ORIGINAL REPORT -------- Dictation workstation: [id number] Interpreted By: Young Foss, STUDY: CT ABDOMEN PELVIS W IV CONTRAST; 06/19/2023 7:55 pm INDICATION: Signs/Symptoms:recen t cholecystectomy, nausea, vomiting, increased pain. Postoperative day to COMPARISON: None. ACCESSION NUMBER(S): [id number] ORDERING CLINICIAN: EUGENE CARCAMO TECHNIQUE: Contiguous axial [...] Young Foss 06/19/2023 8:23 PM Dictation workstation: [id number] [facility] CT Abdomen and Pelvis W cont [...] Young Foss 06/19/2023 8:23 PM Dictation workstation: [id number] Interpreted By: Young Foss, STUDY: CT ABDOMEN PELVIS W IV CONTRAST; 06/19/2023 7:55 pm INDICATION: Signs/Symptoms:recen t cholecystectomy, nausea, vomiting, increased pain. Postoperative day to COMPARISON: None. ACCESSION NUMBER(S): [id number] ORDERING CLINICIAN: EUGENE CARCAMO TECHNIQUE: Contiguous axial [...] Postoperative day to COMPARISON: None. ACCESSION NUMBER(S): [id number] ORDERING CLINICIAN: EUGENE CACRAMO TECHNIQUE: Contiguous axial images of the abdomen [...] Young Foss 06/19/2023 8:23 PM Dictation workstation: [id number] [facility] Work Phone: Radiology Study observation (narrative) [facility] Work Phone: CT Abdomen and Pelvis W cont rast IVOrdered By: Young Foss on 06-19-2023 [facility] Work Phone: HCG ( test) IA.rapi d Ql (U)Ordered By: Carlos Alberto Oden on 06-19-2023 HCG ( test) Ql (U) Negative NEGATIVE [facility] Interpretation and review of laboratory results Normal [facility] HCG ( test) IA.rapi d Ql (U)on 06-19-2023 HCG ( test) Ql (U) Negative Normal NEGATIVE [facility] Comment on above: Performed By: #### 5 8077-9 #### MELISSA WHITEHEAD ([id number]) [facility] ([facility]) [address] [place] [address] Hepatic function 2000 panelo n 06-19-2023 Albumin BCP dye [Mass/Vol] 4.8 g/dL 3.4 - 5.0 g/dL [facility] ALP [Catalytic activity/Vol] 61 U/L 33 - 110 U/L [facility] ALT With P-5'-P [Catalytic activity/Vol] 56 U/L High 7 - 45 U/L [facility] Comment on above: Patients treated wit h Sulfasalazine may generate falsely decreased results for ALT. AST With P-5'-P [Catalytic activity/Vol] 26 U/L 9 - 39 U/L [facility] Bilirubin [Mass/Vol] 0.7 mg/dL 0.0 - 1.2 mg/dL [facility] Bilirubin.direct [Mass/Vol] 0.1 mg/dL 0.0 - 0.3 mg/dL [facility] Protein [Mass/Vol] 7.3 g/dL 6.4 - 8.2 g/dL [facility] [Mass/Vol] 4.8 g/dL Normal 3.4-5.0 [facility] Comment on above: Performed By: #### 2 4325-3 #### MELISSA WHITEHEAD ([id number]) [facility] ([facility]) [address] [place] [address] ALP [Catalytic activity/Vol] 61 U/L Normal 33-110 [facility] Comment on above: Performed By: #### 2 4325-3 #### MELISSA WHITEHEAD ([id number]) [facility] ([facility]) [address] [place] [address] ALT With P-5'-P [Catalytic activity/Vol] 56 U/L High 7-45 [facility] Comment on above: Result Comment: Gema ents treated with Sulfasalazine may generate falsely decreased results for ALT. Performed By: #### 2 4325-3 #### MELISSA WHITEHEAD ([id number]) [facility] ([facility]) [address] [place] [address] 38988 AST With P-5'-P [Catalytic activity/Vol] 26 U/L Normal 9-39 [facility] Comment on above: Performed By: #### 2 4325-3 #### MELISSA WHITEHEAD ([id number]) [facility] ([facility]) [address] [place] [address] 45191 Bilirubin [Mass/Vol] 0.7 mg/dL Normal 0.0-1.2 [facility] Comment on above: Performed By: #### 2 4325-3 #### MELISSA WHITEHEAD ([id number]) [facility] ([facility]) [address] [place] [address] 86970 Bilirubin.direct [Mass/Vol] 0.1 mg/dL Normal 0.0-0.3 [facility] Comment on above: Performed By: #### 2 4325-3 #### MELISSA WHITEHEAD ([id number]) [facility] ([facility]) [address] [place] [address] 36761 Protein [Mass/Vol] 7.3 g/dL Normal 6.4-8.2 [facility] Comment on above: Performed By: #### 2 4325-3 #### MELISSA WHITEHEAD ([id number]) [facility] ([facility]) [address] [place] [address] 34994 Lactateon 06-19-2023 Lactate [Moles/Vol] 1.1 mmol/L 0.4 - 2. 0 mmol/L [facility] Lactate [Moles/Vol] 1.1 mmol/L Normal 0.4-2.0 [facility] Comment on above: Order Comment: Venip uncture immediately after or during the administration of Metamizole may lead to falsely low results. Testing should be performed immediately prior to Metamizole dosing. Performed By: #### 2 524-7 #### MELISSA WHITEHEAD ([id number]) [facility] ([facility]) [address] [place] [address] 67221 Lactate [Moles/Vol]on 2023 Interpretation and review of laboratory results Normal [facility] Venipuncture immediately after or during the administration of Metamizole may lead to falsely low results. Testing should be performed immediately prior to Metamizole dosing. [facility] Lipaseon 06-19-2023 Lipase [Catalytic activity/Vol] 30 U/L - U/L [facility] Lipase [Catalytic activity/V ol]on 06-19-2023 Interpretation and review of laboratory results Normal [facility] Venipuncture immediately after or during the administration of Metamizole may lead to falsely low results. Testing should be performed immediately prior to Metamizole dosing. [facility] No Panel Informationon 06-18 Interpretation and review of laboratory results Abnormal [facility] Triacylglycerol lipaseon Lipase [Catalytic activity/Vol] 30 U/L Normal [facility] Comment on above: Order Comment: Venip uncture immediately after or during the administration of Metamizole may lead to falsely low results. Testing should be performed immediately prior to Metamizole dosing. Performed By: #### 3 040-3 #### TORRES VENTURA ([id number]) [facility] ([facility]) [address] [place] [address] Urinalysis complete W Reflex Culture panel (U)on 06-19-2023 Appearance (U) Clear Clear [facility] Bilirubin (U) [Mass/Vol] Negative NEGATIVE [facility] Color (U) Straw Straw, Yellow [facility] Glucose Auto test strip (U) [Mass/Vol] Negative NEGATIVE mg/dL [facility] Interpretation and review of laboratory results Abnormal [facility] Ketones (U) [Mass/Vol] 80 (2+) Abnormal NEGATIVE mg/d L [facility] Leukocyte esterase Auto test strip Ql (U) Negative NEGATIVE [facility] Mucus Auto (Urine sed) [#/Area] 1+ Reference range not established. /LPF [facility] Nitrite Auto test strip Ql (U) Negative NEGATIVE [facility] pH (U) 5.0 [pH] 5.0, 5.5, 6.0, 6.5, 7.0, 7.5, 8.0 [facility] Protein (U) [Mass/Vol] 30 (1+) Abnormal NEGATIVE mg/d L [facility] RBC (U) [#/Vol] MODERATE (2+) Abnormal NEGATIVE [facility] RBC Auto (Urine sed) [#/Area] 1-2 NONE, 1-2, 3-5 /HPF [facility] Specific gravity (U) [Rel density] 1.017 1.005 - 1.035 [facility] Urobilinogen (U) [Mass/Vol] mg/dL NINF - 2.0 mg/dL [facility] WBC Auto (Urine sed) [#/Area] 1-5 1-5, NONE /HPF [facility] Appearance (U) Clear Normal Clear [facility] Comment on above: Performed By: #### 5 8077-9 #### MELISSA WHITEHEAD ([id number]) [facility] ([facility]) [address] [place] [address] Bilirubin (U) [Mass/Vol] Negative Normal NEGATIVE [facility] Comment on above: Performed By: #### 5 8077-9 #### MELISSA WHITEHEAD ([id number]) [facility] ([facility]) [address] [place] [address] Color (U) Straw Normal Straw, Yellow [facility] Comment on above: Performed By: #### 5 8077-9 #### MELISSA WHITEHEAD ([id number]) [facility] ([facility]) [address] [place] [address] 80383 Glucose Auto test strip (U) [Mass/Vol] Negative Normal NEGATIVE [facility] Comment on above: Performed By: #### 5 8077-9 #### MELISSA WHITEHEAD ([id number]) [facility] ([facility]) [address] [place] [address] 42846 Ketones (U) [Mass/Vol] 80 (2+) Abnormal NEGATIVE [facility] Comment on above: Performed By: #### 5 8077-9 #### MELISSA WHITEHEAD ([id number]) [facility] ([facility]) [address] [place] [address] 25847 Leukocyte esterase Auto test strip Ql (U) Negative Normal NEGATIVE [facility] Comment on above: Performed By: #### 5 8077-9 #### MELISSA WHITEHEAD ([id number]) [facility] ([facility]) [address] [place] [address] 48519 Mucus Auto (Urine sed) [#/Area] 1+ /LPF Normal Reference range not established. [facility] Comment on above: Performed By: #### 5 8077-9 #### MELISSA WHITEHEAD ([id number]) [facility] ([facility]) [address] [place] [address] 26636 Nitrite Auto test strip Ql (U) Negative Normal NEGATIVE [facility] Comment on above: Performed By: #### 5 8077-9 #### MELISSA WHITEHEAD ([id number]) [facility] ([facility]) [address] [place] [address] 43910 pH (U) 5.0 [pH] Normal 5.0, 5.5, 6.0, 6.5, 7.0, 7.5, 8.0 [facility] Comment on above: Performed By: #### 5 8077-9 #### MELISSA WHITEHEAD ([id number]) [facility] ([facility]) [address] [place] [address] 81577 Protein (U) [Mass/Vol] 30 (1+) Normal NEGATIVE [facility] Comment on above: Performed By: #### 5 8077-9 #### MELISSA WHITEHEAD ([id number]) [facility] ([facility]) [address] [place] [address] 44992 RBC (U) [#/Vol] MODERATE (2+) Abnormal NEGATIVE [facility] Comment on above: Performed By: #### 5 8077-9 #### MELISSA WHITEHEAD ([id number]) [facility] ([facility]) [address] [place] [address] 55861 RBC Auto (Urine sed) [#/Area] 1-2 Normal NONE, 1-2, 3-5 [facility] Comment on above: Performed By: #### 5 8077-9 #### MELISSA WHITEHEAD ([id number]) [facility] ([facility]) [address] [place] [address] Specific gravity (U) [Rel density] 1.017 Normal 1.005-1.035 [facility] Comment on above: Performed By: #### 5 8077-9 #### MELISSA WHITEHEAD ([id number]) [facility] ([facility]) [address] [place] [address] Urobilinogen (U) [Mass/Vol] mg/dL Normal <2.0 [facility] Comment on above: Performed By: #### 5 8077-9 #### MELISSA WHITEHEAD ([id number]) [facility] ([facility]) [address] [place] [address] WBC Auto (Urine sed) [#/Area] 1-5 Normal 1-5, NONE [facility] Comment on above: Performed By: #### 5 8077-9 #### MELISSA WHITEHEAD ([id number]) [facility] ([facility]) [address] [place], [place] [address] CBC W Auto Differential pane l (Bld)on 06-18-2023 Basophils (Bld) [#/Vol] 0.03 10*3/uL [facility] Basophils/100 WBC (Bld) 0.5 % 0.0 - 2.0 % [facility] Eosinophils (Bld) [#/Vol] 0.05 10*3/uL [facility] Eosinophils/100 WBC (Bld) 0.9 % 0.0 - 6.0 % [facility] Erythrocyte distribution width (RBC) [Ratio] 14.7 % High 11.5 - 14.5 % [facility] Hematocrit (Bld) [Volume fraction] 40.2 % 36.0 - 46.0 % [facility] Hemoglobin (Bld) [Mass/Vol] 12.7 g/dL 12.0 - 16.0 g/dL [facility] Immature granulocytes (Bld) [#/Vol] 0.01 10*3/uL [facility] Immature granulocytes/100 WBC (Bld) 0.2 % 0.0 - 0.9 % [facility] Comment on above: Immature Granulocyte Count (IG) includes promyelocytes, myelocytes and metamyelocytes but does not include bands. Percent differential counts (%) should be interpreted in the context of the absolute cell counts (cells/UL). Interpretation and review of laboratory results Abnormal [facility] Lymphocytes (Bld) [#/Vol] 3.08 10*3/uL [facility] Lymphocytes/100 WBC (Bld) 56.4 % 13.0 - 44.0 % [facility] MCH (RBC) [Entitic mass] 28.0 pg 26.0 - 34.0 pg [facility] MCHC (RBC) [Mass/Vol] 31.6 g/dL Low 32.0 - 36.0 g/dL [facility] MCV (RBC) [Entitic vol] 89 fL 80 - 100 fL [facility] Monocytes (Bld) [#/Vol] 0.38 10*3/uL [facility] Monocytes/100 WBC (Bld) 7.0 % 2.0 - 10.0 % [facility] Neutrophils (Bld) [#/Vol] 1.91 10*3/uL [facility] Comment on above: Percent differential counts (%) should be interpreted in the context of the absolute cell counts (cells/uL). Neutrophils/100 WBC (Bld) 35.0 % 40.0 - 80.0 % [facility] Nucleated RBC/100 WBC (Bld) [Ratio] 0.0 % [facility] Platelets (Bld) [#/Vol] 208 10*3/uL [facility] RBC (Bld) [#/Vol] 4.54 10*6/uL [facility] WBC (Bld) [#/Vol] 5.5 10*3/uL [facility] Basophils (Bld) [#/Vol] 0.03 x10*3/uL Normal 0.00-0.10 [facility] Comment on above: Performed By: #### 5 7021-8 #### MELISSA WHITEHEAD ([id number]) [facility] ([facility]) [address] [place] [address] 53842 Basophils/100 WBC (Bld) 0.5 % Normal 0.0-2.0 [facility] Comment on above: Performed By: #### 5 7021-8 #### MELISSA WHITEHEAD ([id number]) [facility] ([facility]) [address] [place] [address] 98419 Eosinophils (Bld) [#/Vol] 0.05 x10*3/uL Normal 0.00-0.70 [facility] Comment on above: Performed By: #### 5 7021-8 #### MELISSA WHITEHEAD ([id number]) [facility] ([facility]) [address] [place] [address] 63555 Eosinophils/100 WBC (Bld) 0.9 % Normal 0.0-6.0 [facility] Comment on above: Performed By: #### 5 7021-8 #### MELISSA WHITEHEAD ([id number]) [facility] ([facility]) [address] [place] [address] 78810 Erythrocyte distribution width (RBC) [Ratio] 14.7 % High 11.5-14.5 [facility] Comment on above: Performed By: #### 5 7021-8 #### MELISSA WHITEHEAD ([id number]) [facility] ([facility]) [address] [place] [address] 80124 Hematocrit (Bld) [Volume fraction] 40.2 % Normal 36.0-46.0 [facility] Comment on above: Performed By: #### 5 7021-8 #### MELISSA WHITEHEAD ([id number]) [facility] ([facility]) [address] [place] [address] 03194 Hemoglobin (Bld) [Mass/Vol] 12.7 g/dL Normal 12.0-16.0 [facility] Comment on above: Performed By: #### 5 7021-8 #### MELISSA WHITEHEAD ([id number]) [facility] ([facility]) [address] [place] [address] 01927 Immature granulocytes (Bld) [#/Vol] 0.01 x10*3/uL Normal 0.00-0.70 [facility] Comment on above: Performed By: #### 5 7021-8 #### MELISSA WHITEHEAD ([id number]) [facility] ([facility]) [address] [place] [address] 90648 Immature granulocytes/100 WBC (Bld) 0.2 % Normal 0.0-0.9 [facility] Comment on above: Result Comment: Betty ture Granulocyte Count (IG) includes promyelocytes, myelocytes and metamyelocytes but does not include bands. Percent differential counts (%) should be interpreted in the context of the absolute cell counts (cells/UL). Performed By: #### 5 7021-8 #### MELISSA WHITEHEAD ([id number]) [facility] ([facility]) [address] [place] [address] 33771 Lymphocytes (Bld) [#/Vol] 3.08 x10*3/uL Normal 1.20-4.80 [facility] Comment on above: Performed By: #### 5 7021-8 #### MELISSA WHITEHEAD ([id number]) [facility] ([facility]) [address] [place] [address] 11996 Lymphocytes/100 WBC (Bld) 56.4 % Normal 13.0-44.0 [facility] Comment on above: Performed By: #### 5 7021-8 #### MELISSA WHITEHEAD ([id number]) [facility] ([facility]) [address] [place] [address] 71648 MCH (RBC) [Entitic mass] 28.0 pg Normal 26.0-34.0 [facility] Comment on above: Performed By: #### 5 7021-8 #### MELISSA WHITEHEAD ([id number]) [facility] ([facility]) [address] [place] [address] 00638 MCHC (RBC) [Mass/Vol] 31.6 g/dL Low 32.0-36.0 [facility] Comment on above: Performed By: #### 5 7021-8 #### MELISSA WHITEHEAD ([id number]) [facility] ([facility]) [address] [place] [address] 69285 MCV (RBC) [Entitic vol] 89 fL Normal 80-100 U [facility] Comment on above: Performed By: #### 5 7021-8 #### MELISSA WHITEHEAD ([id number]) [facility] ([facility]) [address] [place] [address] 58626 Monocytes (Bld) [#/Vol] 0.38 x10*3/uL Normal 0.10-1.00 [facility] Comment on above: Performed By: #### 5 7021-8 #### MELISSA WHITEHEAD ([id number]) [facility] ([facility]) [address] [place] [address] 83879 Monocytes/100 WBC (Bld) 7.0 % Normal 2.0-10.0 [facility] Comment on above: Performed By: #### 5 7021-8 #### MELISSA WHITEHEAD ([id number]) [facility] ([facility]) [address] [place] [address] 22251 Neutrophils (Bld) [#/Vol] 1.91 x10*3/uL Normal 1.20-7.70 [facility] Comment on above: Result Comment: Perc ent differential counts (%) should be interpreted in the context of the absolute cell counts (cells/uL). Performed By: #### 5 7021-8 #### MELISSA WHITEHEAD ([id number]) [facility] ([facility]) [address] [place] [address] 00931 Neutrophils/100 WBC (Bld) 35.0 % Normal 40.0-80.0 [facility] Comment on above: Performed By: #### 5 7021-8 #### MELISSA WHITEHEAD ([id number]) [facility] ([facility]) [address] [place] [address] 11745 Nucleated RBC/100 WBC (Bld) [Ratio] 0.0 /100 WBCs Normal 0.0-0.0 [facility] Comment on above: Performed By: #### 5 7021-8 #### MELISSA WHITEHEAD ([id number]) [facility] ([facility]) [address] [place] [address] Platelets (Bld) [#/Vol] 208 x10*3/uL Normal 150-450 [facility] Comment on above: Performed By: #### 5 7021-8 #### MELISSA WHITEHEAD ([id number]) [facility] ([facility]) [address] [place] [address] RBC (Bld) [#/Vol] 4.54 x10*6/uL Normal 4.00-5.20 [facility] Comment on above: Performed By: #### 5 7021-8 #### MELISSA WHITEHEAD ([id number]) [facility] ([facility]) [address] [place] [address] WBC (Bld) [#/Vol] 5.5 x10*3/uL Normal 4.4-11.3 [facility] Comment on above: Performed By: #### 5 7021-8 #### MELISSA WHITEHEAD ([id number]) [facility] ([facility]) [address] [place] [address] Comprehensive metabolic 2000 panelon 06-18-2023 Albumin BCP dye [Mass/Vol] 4.1 g/dL 3.4 - 5.0 g/dL [facility] ALP [Catalytic activity/Vol] 54 U/L 33 - 110 U/L [facility] ALT With P-5'-P [Catalytic activity/Vol] 58 U/L High 7 - 45 U/L [facility] Comment on above: Patients treated wit h Sulfasalazine may generate falsely decreased results for ALT. Anion gap [Moles/Vol] 10 mmol/L 10 - 20 mmol/L [facility] AST With P-5'-P [Catalytic activity/Vol] 27 U/L 9 - 39 U/L [facility] Bilirubin [Mass/Vol] 0.7 mg/dL 0.0 - 1.2 mg/dL [facility] Calcium [Mass/Vol] 8.4 mg/dL Low 8.6 - 10. 3 mg/dL [facility] Chloride [Moles/Vol] 103 mmol/L 98 - 107 mmol/L [facility] CO2 [Moles/Vol] 26 mmol/L 21 - 32 mmol/L Unive [facility] Creatinine [Mass/Vol] 0.83 mg/dL 0.50 - 1.05 mg/dL [facility] eGFR - PINF [facility] Comment on above: Calculations of nick mated GFR are performed using the 2020 CKD-EPI Study Refit equation without the race variable for the IDMS-Traceable creatinine methods. https://jasn.asnjournals.org/content/early//ASN.2020 536825 Glucose [Mass/Vol] 81 mg/dL 74 - 99 mg/dL Uni [facility] Interpretation and review of laboratory results Abnormal [facility] Potassium [Moles/Vol] 3.4 mmol/L Low 3.5 - 5.3 mmol/L [facility] Protein [Mass/Vol] 6.1 g/dL Low 6.4 - 8.2 [facility] Sodium [Moles/Vol] 136 mmol/L 136 - 145 mmol/L [facility] Urea nitrogen [Mass/Vol] 5 mg/dL Low 6 - 23 mg/dL [facility] Albumin BCP dye [Mass/Vol] 4.1 g/dL Normal 3.4-5.0 [facility] Comment on above: Performed By: #### 2 4323-8 #### MELISSA WHITEHEAD ([id number]) [facility] ([facility]) [address] [place] [address] 51811 ALP [Catalytic activity/Vol] 54 U/L Normal 33-110 [facility] Comment on above: Performed By: #### 2 4323-8 #### MELISSA WHITEHEAD ([id number]) [facility] ([facility]) [facility] [place] [address] ALT With P-5'-P [Catalytic activity/Vol] 58 U/L High 7-45 [facility] Comment on above: Result Comment: Gema ents treated with Sulfasalazine may generate falsely decreased results for ALT. Performed By: #### 2 4323-8 #### MELISSA WHITEHEAD ([id number]) [facility] ([facility]) [address] [place] [address] Anion gap [Moles/Vol] 10 mmol/L Normal 10-20 [facility] Comment on above: Performed By: #### 2 4323-8 #### MELISSA WHITEHEAD ([id number]) [facility] ([facility]) [address] [place] [address] AST With P-5'-P [Catalytic activity/Vol] 27 U/L Normal 9-39 [facility] Comment on above: Performed By: #### 2 432-8 #### MELISSA WHITEHEAD ([id number]) [facility] ([facility]) [address] [place] [address] Bilirubin [Mass/Vol] 0.7 mg/dL Normal 0.0-1.2 [facility] Comment on above: Performed By: #### 2 4322-8 #### MELISSA WHITEHEAD ([id number]) [facility] ([facility]) [address] [place] [address] Calcium [Mass/Vol] 8.4 mg/dL Low 8.6-10.3 [facility] Comment on above: Performed By: #### 2 432-8 #### MELISSA WHITEHEAD ([id number]) [facility] ([facility]) [address] [place] [address] Chloride [Moles/Vol] 103 mmol/L Normal 98-107 [facility] Comment on above: Performed By: #### 2 432-8 #### MELISSA WHITEHEAD ([id number]) [facility] ([facility]) [address] [place] [address] CO2 [Moles/Vol] 26 mmol/L Normal 21-32 [facility] Comment on above: Performed By: #### 2 4323-8 #### MELISSA WHITEHEAD ([id number]) [facility] ([facility]) [address] [place] [address] Creatinine [Mass/Vol] 0.83 mg/dL Normal 0.50-1.05 [facility] Comment on above: Performed By: #### 2 4323-8 #### MELISSA WHITEHEAD ([id number]) [facility] ([facility]) [facility] [place] [address] GFR/1.73 sq M.predicted MDRD (S/P/Bld) [Vol rate/Area] mL/min/{1.73_m2} Normal >60 [facility] Comment on above: Result Comment: Calc ulations of estimated GFR are performed using the 2020 CKD-EPI Study Refit equation without the race variable for the IDMS-Traceable creatinine methods. https://jasn.asnjournals.org/content/early//ASN.2020 113612 Performed By: #### 2 4323-8 #### MELISSA WHITEHEAD ([id number]) [facility] ([facility]) [address] [place] [address] 07234 Glucose [Mass/Vol] 81 mg/dL Normal 74-99 [facility] Comment on above: Performed By: #### 2 432-8 #### MELISSA WHITEHEAD ([id number]) [facility] ([facility]) [address] [place] [address] 13028 Potassium [Moles/Vol] 3.4 mmol/L Low 3.5-5.3 [facility] Comment on above: Performed By: #### 2 4323-8 #### MELISSA WHITEHEAD ([id number]) [facility] ([facility]) [address] [place] [address] [id number] Protein [Mass/Vol] 6.1 g/dL Low 6.4-8.2 [facility] Comment on above: Performed By: #### 2 4323-8 #### MELISSA WHITEHEAD ([id number]) [facility] ([facility]) [address] [place] [address] [id number] Sodium [Moles/Vol] 136 mmol/L Normal 136-145 [facility] Comment on above: Performed By: #### 2 4323-8 #### MELISSA WHITEHEAD ([id number]) [facility] ([facility] [facility]) [address] [place] [address] Urea nitrogen [Mass/Vol] 5 mg/dL Low 6- [facility] Comment on above: Performed By: #### 2 4323-8 #### MELISSA WHITEHEAD ([id number]) [facility] ([facility]) [address] [place] [address] Lipaseon 06-18-2023 Lipase [Catalytic activity/Vol] 36 U/L 9 - U/L [facility] Lipase [Catalytic activity/V ol]on 06-18-2023 Interpretation and review of laboratory results Normal [facility] Venipuncture immediately after or during the administration of Metamizole may lead to falsely low results. Testing should be performed immediately prior to Metamizole dosing. [facility] No Panel Informationon 06-17 [facility] Triacylglycerol lipaseon Lipase [Catalytic activity/Vol] 36 U/L Normal [facility] Comment on above: Order Comment: Venip uncture immediately after or during the administration of Metamizole may lead to falsely low results. Testing should be performed immediately prior to Metamizole dosing. Performed By: #### 3 040-3 #### MELISSA WHITEHEAD ([id number]) [facility] ([facility]) [address] [place], [place] [id number] Urinalysis complete W Reflex Culture panel (U)on 06-18-2023 Appearance (U) Hazy Abnormal Clear [facility] Bilirubin (U) [Mass/Vol] Negative NEGATIVE [facility] Color (U) Yellow Straw, Yellow [facility] Glucose Auto test strip (U) [Mass/Vol] Negative NEGATIVE mg/dL [facility] Interpretation and review of laboratory results Abnormal [facility] Ketones (U) [Mass/Vol] 80 (2+) Abnormal NEGATIVE mg/d L [facility] Leukocyte esterase Auto test strip Ql (U) Negative NEGATIVE [facility] Nitrite Auto test strip Ql (U) Negative NEGATIVE [facility] pH (U) 6.0 [pH] 5.0, 5.5, 6.0, 6.5, 7.0, 7.5, 8.0 [facility] Protein (U) [Mass/Vol] Negative NEGATIVE mg/d L [facility] RBC (U) [#/Vol] Negative NEGATIVE [facility] Specific gravity (U) [Rel density] 1.019 1.005 - 1.035 [facility] Urobilinogen (U) [Mass/Vol] mg/dL NINF - 2.0 mg/dL [facility] Appearance (U) Hazy Normal Clear [facility] Comment on above: Performed By: #### 5 8077-9 #### MELISSA WHITEHEAD ([id number]) [facility] ([facility]) [address] [place] [address]79 Bilirubin (U) [Mass/Vol] Negative Normal NEGATIVE [facility] Comment on above: Performed By: #### 5 8077-9 #### MELISSA WHITEHEAD ([id number]) [facility] ([facility]) [address] [place] [address] Color (U) Yellow Normal Straw, Yellow [facility] Comment on above: Performed By: #### 5 8077-9 #### MELISSA WHITEHEAD ([id number]) [facility] ([facility]) [address] [place] [address]62 Glucose Auto test strip (U) [Mass/Vol] Negative Normal NEGATIVE [facility] Comment on above: Performed By: #### 5 8077-9 #### MELISSA WHITEHEAD ([id number]) [facility] ([facility]) [address] [place] [address]93 Ketones (U) [Mass/Vol] 80 (2+) Abnormal NEGATIVE [facility] Comment on above: Performed By: #### 5 8077-9 #### MELISSA WHITEHEAD ([id number]) [facility] ([facility]) [address] [place] [address] 88724 Leukocyte esterase Auto test strip Ql (U) Negative Normal NEGATIVE [facility] Comment on above: Performed By: #### 5 8077-9 #### MELISSA WHITEHEAD ([id number]) [facility] ([facility]) [address] [place] [address] Nitrite Auto test strip Ql (U) Negative Normal NEGATIVE [facility] Comment on above: Performed By: #### 5 8077-9 #### MELISSA WHITEHEAD ([id number]) [facility] ([facility]) [address] [place] [address] pH (U) 6.0 [pH] Normal 5.0, 5.5, 6.0, 6.5, 7.0, 7.5, 8.0 [facility] Comment on above: Performed By: #### 5 8077-9 #### MELISSA WHITEHEAD ([id number]) [facility] ([facility]) [address] [place] [address] Protein (U) [Mass/Vol] Negative Normal NEGATIVE [facility] Comment on above: Performed By: #### 5 8077-9 #### MELISSA WHITEHEAD ([id number]) [facility] ([facility]) [address] [place] [address] RBC (U) [#/Vol] Negative Normal NEGATIVE [facility] Comment on above: Performed By: #### 5 8077-9 #### MELISSA WHITEHEAD ([id number]) [facility] ([facility]) [address] [place] [address] Specific gravity (U) [Rel density] 1.019 Normal 1.005-1.035 [facility] Comment on above: Performed By: #### 5 8077-9 #### MELISSA WHITEHEAD ([id number]) [facility] ([facility]) [address] [place] [address] Urobilinogen (U) [Mass/Vol] mg/dL Normal <2.0 [facility] Comment on above: Performed By: #### 5 8077-9 #### MELISSA WHITEHEAD ([id number]) [facility] ([facility]) [address] [place] [address] Surgical pathology studyon 0 06-17-2023 Surgical pathology study Pathology report.total SEE COMMENT Surgical Pathology Case: [id number] Authorizing Provider: Alla Llanes MD Collected: 06/17/2023 0958 Ordering Location: [facility] Received: 06/17/2023 1600 [place] Pathologist: [...] node measuring 1.0 cm in greatest dimension. [employer] sections consisting of the cystic duct margin, and gallbladder wall, and lymph node are submitted in one cassette. [facility] Comment on above: Order Comment: Pre-o p diagnosis:Symptomatic cholelithiasis [K80.20] URINE OB DIP B/Oon 3 Glucose Ql (U) Negative Neg mg/dL [facility] Protein.monoclonal (U) [Mass/Vol] Negative Neg mg/dL [facility] URINE OB DIP B/Oon 3 Glucose Ql (U) Negative Neg mg/dL [facility] Protein.monoclonal (U) [Mass/Vol] Negative Neg mg/dL [facility] URINE OB DIP B/Oon 3 Glucose Ql (U) Negative Neg mg/dL [facility] Protein.monoclonal (U) [Mass/Vol] Negative Neg mg/dL [facility] Absolute lymphocyte countOrd ered By: Neelima Dahl on 09-24-2022 Lymphocytes Auto (Unsp spec) [#/Vol] 1.26 10*3/uL 0.83-4.51 [facility] Automated blood hematocrit ( percentage)Ordered By: Neelima Dahl on 09-24-2022 Hematocrit (Bld) [Volume fraction] 30.4 % 37-47 [facility] Basophil percentageOrdered B y: Neelima Dahl on 09-24-2022 Basophils/100 WBC (Bld) 0.4 % 0-1 [facility] Eosinophils/100 WBC (Bld) 1.1 % 0-5 [facility] Neutrophils (Bld) [#/Vol] 3.7 10*3/uL 2.0-7.7 [facility] Neutrophils/100 WBC (Bld) 65.8 % 47-70 [facility] WBC (Bld) [#/Vol] 5.6 10*3/uL 4.4-11.0 [facility] Blood erythrocytes count (nu mber/volume)Ordered By: Neelima Dahl on 09-24-2022 RBC (Bld) [#/Vol] 3.21 10*6/uL 4.2-5.4 [facility] Blood hemoglobin measurement (mass/volume)Ordered By: Neelima Dahl on 09-24-2022 Hemoglobin (Bld) [Mass/Vol] 9.6 g/dL 12.0-15.0 [facility] Blood lymphocytes/100 leukoc ytesOrdered By: Neelima Dahl on 09-24-2022 Lymphocytes/100 WBC (Bld) 22.6 % 19-41 [facility] Blood monocytes/100 leukocyt esOrdered By: Neelima Dahl on 09-24-2022 Monocytes/100 WBC (Bld) 9.9 % 0-10 [facility] Blood platelet mean volumeOr dered By: Neelima Dahl on 09-24-2022 Platelet mean volume (Bld) [Entitic vol] 12.7 fL 6.2-12.0 [facility] Determination of erythrocyte mean corpuscular volume (MCV)Ordered By: Neelima Dahl on 09-24-2022 MCV (RBC) [Entitic vol] 94.7 fL 81-99 [facility] GEST GLUC SCREEN, 1-HR, 50 G M, NON-FASTINGon 09-24-2022 Glucose 1hr Gest [facility] Gestational diabetes screen 1-hour screen with 50g oral glucose loadOrdered By: Neelima Dahl on 09-24-2022 Glucose 1 Hr post 50 g glucose PO [Mass/Vol] 93 mg/dL 70-140 [facility] Laboratory - Hematology and Cell countsOrdered By: Neelima Dahl on 09-24-2022 Erythrocyte distribution width (RBC) [Entitic vol] 45.2 fL 35.1-43.9 [facility] Erythrocyte distribution width (RBC) [Ratio] 13.1 % 11.6-14.6 [facility] Immature granulocytes/100 WBC (Bld) 0.200 % 0.0-0.9 [facility] Comment on above: IG% - Immature Granu locytes (promyelocytes, myelocytes and metamyelocytes) > 1% indicates that a LEFT SHIFT is Present. MCH (RBC) [Entitic mass] 29.9 pg 27.0-32.0 [facility] Nucleated RBC/100 WBC (Bld) [Ratio] 0 % 0-5 [facility] MCHC Auto (RBC) [Mass/Vol]Or dered By: Neelima Dahl on 09-24-2022 MCHC (RBC) [Mass/Vol] 31.6 g/dL 32-36 [facility] Platelets bldOrdered By: Curtis Dahl on 09-24-2022 Platelets (Bld) [#/Vol] 132 10*3/uL 150-450 [facility] Reagin and Treponema pallidu m IgG and IgM [Interp]on 09-24-2022 T. pallidum IgG+IgM IA Ql (S) Non-Reactive Nonreactive [facility] Serum Treponema species anti body detectionOrdered By: Neelima Dahl on 09-24-2022 Treponema sp Ab Ql (S) Non-Reactive [facility] Absolute lymphocyte countOrd ered By: Jimmy Anna on 08-29-2022 Lymphocytes Auto (Unsp spec) [#/Vol] 1.26 10*3/uL 0.83-4.51 [facility] Basophil percentageOrdered B y: Jimmy Anna on 08-29-2022 Basophil percentage 0-5 SEEN /hpf 0-5 [facility] Basophils/100 WBC (Bld) 0.2 % 0-1 [facility] Bilirubin [Mass/Vol] 0.40 mg/dL 0.20-1.00 [facility] Comment on above: For patients on eltr ombopag therapy, use of [place] TBIL is not recommended. Chloride [Moles/Vol] 108 mmol/L 98-107 [facility] Eosinophils/100 WBC (Bld) 0.8 % 0-5 [facility] Glucose [Mass/Vol] 77 mg/dL 74-106 [facility] Neutrophils (Bld) [#/Vol] 7.2 10*3/uL 2.0-7.7 [facility] Neutrophils/100 WBC (Bld) 78.5 % 47-70 [facility] Potassium [Moles/Vol] 3.9 mmol/L 3.5-5.1 [facility] Protein [Mass/Vol] 5.6 g/dL 6.4-8.2 [facility] Sodium [Moles/Vol] 138 mmol/L 136-145 [facility] WBC (Bld) [#/Vol] 9.1 10*3/uL 4.4-11.0 [facility] Bilirubin Test strip Ql (U)O rdered By: Jimmy Anna on 08-29-2022 Bilirubin Ql (U) Negative Negative [facility] Blood erythrocytes count (nu mber/volume)Ordered By: Jimmy Anna on 08-29-2022 RBC (Bld) [#/Vol] 3.23 10*6/uL 4.2-5.4 [facility] Blood hemoglobin measurement (mass/volume)Ordered By: Jimmy Anna on 08-29-2022 Hemoglobin (Bld) [Mass/Vol] 9.8 g/dL 12.0-15.0 [facility] Blood lymphocytes/100 leukoc ytesOrdered By: Jimmy Anna on 08-29-2022 Lymphocytes/100 WBC (Bld) 13.8 % 19-41 [facility] Blood monocytes/100 leukocyt esOrdered By: Jimmy Anna on 08-29-2022 Monocytes/100 WBC (Bld) 6.4 % 0-10 [facility] Blood platelet mean volumeOr dered By: Jimmy Anna on 08-29-2022 Platelet mean volume (Bld) [Entitic vol] 12.2 fL 6.2-12.0 [facility] Determination of erythrocyte mean corpuscular volume (MCV)Ordered By: Jimmy Anna on 08-29-2022 MCV (RBC) [Entitic vol] 95.4 fL 81-99 [facility] Hematocrit Auto (Bld) [Volum e fraction]Ordered By: Jimmy Anna on 08-29-2022 Hematocrit (Bld) [Volume fraction] 30.8 % 37-47 [facility] Ketones Test strip Ql (U)Ord ered By: Jimmy Anna on 08-29-2022 Ketones Ql (U) 50 mg/dl Negative [facility] Laboratory - Chemistry and C hemistry - challengeOrdered By: Jimmy Anna on 08-29-2022 ALP [Catalytic activity/Vol] 54 U/L 45-117 [facility] ALT [Catalytic activity/Vol] 19 U/L 13-56 [facility] CO2 [Moles/Vol] 23.0 mmol/L 21.0-32.0 [facility] Globulin (S) [Mass/Vol] 3.1 g/dL 2.2-4.2 [facility] Lipase [Catalytic activity/Vol] 25 U/L 13-75 [facility] Comment on above: Please note:LIPASE r evised reference range effective 22. New Lipase methodology. Expected to produce lower values than the previous assay method. NEW Reference Range: 13 - 75 U/L Urea nitrogen/Creatinine [Mass ratio] 15.5 mg/mg 10-20 [facility] Laboratory - Hematology and Cell countsOrdered By: Jimmy Anna on 08-29-2022 Erythrocyte distribution width (RBC) [Entitic vol] 47.0 fL 35.1-43.9 [facility] Erythrocyte distribution width (RBC) [Ratio] 13.4 % 11.6-14.6 [facility] Immature granulocytes/100 WBC (Bld) 0.300 % 0.0-0.9 [facility] Comment on above: IG% - Immature Granu locytes (promyelocytes, myelocytes and metamyelocytes) > 1% indicates that a LEFT SHIFT is Present. MCH (RBC) [Entitic mass] 30.3 pg 27.0-32.0 [facility] Nucleated RBC/100 WBC (Bld) [Ratio] 0 % 0-5 [facility] MCHC Auto (RBC) [Mass/Vol]Or dered By: Jimmy Anna on 08-29-2022 MCHC (RBC) [Mass/Vol] 31.8 g/dL 32-36 [facility] Mucus LM Ql (Urine sed)Order ed By: Jimmy Anna on 08-29-2022 Mucus Ql (Urine sed) 1+ /hpf [facility] Nitrite Test strip Ql (U)Ord ered By: Jimmy Anna on 08-29-2022 Nitrite Ql (U) Negative Negative [facility] No Panel InformationOrdered By: Jimmy Anna on 08-29-2022 Estimated Creatinine Clearance Calc 143.95 ml/min [facility] Estimated GFR (MDRD) Amer 196 mL/min >60 [facility] Comment on above: GFR Calc Estimated GFR (MDRD) Non-Af Amer 162 mL/min >60 [facility] Comment on above: Non- GFR Calc Platelets bldOrdered By: Nicky Anna on 08-29-2022 Platelets (Bld) [#/Vol] 142 10*3/uL 150-450 [facility] Protein Test strip Ql (U)Ord ered By: Jimmy Anna on 08-29-2022 Protein Ql (U) 15 mg/dl Negative [facility] Serum or plasma albumin reynaldo urement (mass/volume)Ordered By: Jimmy Anna on 08-29-2022 Albumin [Mass/Vol] 2.5 g/dL 3.2-5.0 [facility] Serum or plasma albumin/glob ulin mass ratioOrdered By: Jimmy Anna on 08-29-2022 Albumin/Globulin [Mass ratio] 0.8 {ratio} 0.9-2.4 [facility] Serum or plasma calcium reynaldo urement (mass/volume)Ordered By: Jimmy Anna on 08-29-2022 Calcium [Mass/Vol] 7.7 mg/dL 8.5-10.1 [facility] Serum or plasma creatinine m easurement (mass/volume)Ordered By: Jimmy Anna on 08-29-2022 Creatinine [Mass/Vol] 0.52 mg/dL 0.55-1.02 [facility] Comment on above: The validity of the calculated GFR & GFRAA in patients over 70 years has not been determined. Clinical correlation is essential. Serum or plasma urea nitroge n measurement (mass/volume)Ordered By: Jimmy Anna on 08-29-2022 Urea nitrogen [Mass/Vol] 8 mg/dL 7-18 [facility] Squamous epithelial cells de tection in urine sediment by light microscopyOrdered By: Jimmy Anna on 08-29-2022 Epithelial cells.squamous LM Ql (Urine sed) 0-5 SEEN /hpf 5-10 [facility] Thin prep Papanicolaou smear with manual screeningOrdered By: Jimmy Anna on 08-29-2022 Thin prep Papanicolaou smear with manual screening 17 U/L 15-37 [facility] Thin prep Papanicolaou smear with manual screening 7 5-15 [facility] Urine blood detectionOrdered By: Jimmy Anna on 08-29-2022 RBC Ql (U) Negative Negative [facility] RBC Ql (U) 0 SEEN /hpf 0-5 [facility] Urine clarityOrdered By: Nicky Anna on 08-29-2022 Clarity (U) Sl. Cloudy Clear [facility] Urine color determinationOrd ered By: Jimmy Anna on 08-29-2022 Color (U) Yellow Yellow [facility] Urine glucose detectionOrder ed By: Jimmy Anna on 08-29-2022 Glucose Ql (U) Normal mg/dl Normal [facility] Urine leukocyte esterase det ection by dipstickOrdered By: Jimmy Anna on 08-29-2022 Leukocyte esterase Test strip Ql (U) 25 /ul Negative [facility] Urine pHOrdered By: Jimmy denise on 08-29-2022 pH (U) 6.0 [pH] 5.0 - 8.0 [facility] Urine sediment bacteria coun t by microscopy (number/high power field)Ordered By: Jimmy Anna on 08-29-2022 Bacteria LM.HPF (Urine sed) [#/Area] Not Reportable [facility] Urine specific gravity measu rementOrdered By: Jimmy Anna on 08-29-2022 Specific gravity (U) [Rel density] 1.020 1.002-1.030 [facility] Urobilinogen Auto test strip Ql (U)Ordered By: Jimmy Anna on 08-29-2022 Urobilinogen Ql (U) Normal mg/dl Normal [facility] Initial Visit (General Surge ry)on 08-22-2022 Initial [...] Alla Llanes; Aug 22 2022 10:21 AM ESTChi Complaint Right upper quadrant abdominal pain History [...] TABS (Ondansetron HCl) Vitals Vital Signs Recorded: [id number] 09:45AM Heart Hvkv680 Ygwrbmbq616 Rlowleqae90 Height5 ft 3 in 2-20 Stature Rcprsszvuf48 % Ozsdem440 lb 2-20 Weight Mclwoiexai94 % BMI Knzupdcmql87.38 kg/m2 BMI Vngrnttzxl27 % BSA Calculated1.62 Tobacco Useb) No Falls [...] no pericholecystic fluid or wall thickening. Sonographic Amynard sign negative. No biliary ductal dilation, CBD measures 4 mm. Signatures Electronically signed by : Alla Llanes MD; Aug 22 2022 10:21AM EST (Author) Normal [employer] Absolute lymphocyte countOrd ered By: Kristofer Low on 08-17-2022 Lymphocytes Auto (Unsp spec) [#/Vol] 1.32 10*3/uL 0.83-4.51 [facility] Basophil percentageOrdered B y: Kristofer Low on 08-17-2022 Basophils/100 WBC (Bld) 0.2 % 0-1 [facility] Bilirubin [Mass/Vol] 0.30 mg/dL 0.20-1.00 [facility] Comment on above: For patients on eltr ombopag therapy, use of [place] TBIL is not recommended. Chloride [Moles/Vol] 108 mmol/L 98-107 [facility] Eosinophils/100 WBC (Bld) 0.5 % 0-5 [facility] Glucose [Mass/Vol] 79 mg/dL 74-106 [facility] Neutrophils (Bld) [#/Vol] 6.5 10*3/uL 2.0-7.7 [facility] Neutrophils/100 WBC (Bld) 76.2 % 47-70 [facility] Potassium [Moles/Vol] 4.0 mmol/L 3.5-5.1 [facility] Protein [Mass/Vol] 5.6 g/dL 6.4-8.2 [facility] Sodium [Moles/Vol] 137 mmol/L 136-145 [facility] WBC (Bld) [#/Vol] 8.5 10*3/uL 4.4-11.0 [facility] Blood erythrocytes count (nu mber/volume)Ordered By: Kristofer Low on 08-17-2022 RBC (Bld) [#/Vol] 3.21 10*6/uL 4.2-5.4 [facility] Blood hemoglobin measurement (mass/volume)Ordered By: Kristofer Low on 08-17-2022 Hemoglobin (Bld) [Mass/Vol] 10.0 g/dL 12.0-15.0 [facility] Blood lymphocytes/100 leukoc ytesOrdered By: Kristofer Low on 08-17-2022 Lymphocytes/100 WBC (Bld) 15.6 % 19-41 [facility] Blood monocytes/100 leukocyt esOrdered By: Kristofer Low on 08-17-2022 Monocytes/100 WBC (Bld) 7.1 % 0-10 [facility] Blood platelet mean volumeOr dered By: Kristofer Low on 08-17-2022 Platelet mean volume (Bld) [Entitic vol] 11.8 fL 6.2-12.0 [facility] Determination of erythrocyte mean corpuscular volume (MCV)Ordered By: Kristofer Low on 08-17-2022 MCV (RBC) [Entitic vol] 94.7 fL 81-99 [facility] Hematocrit Auto (Bld) [Volum e fraction]Ordered By: Kristofer Low on 08-17-2022 Hematocrit (Bld) [Volume fraction] 30.4 % 37-47 [facility] Laboratory - Chemistry and C hemistry - challengeOrdered By: Kristofer Low on 08-17-2022 ALP [Catalytic activity/Vol] 58 U/L 45-117 [facility] ALT [Catalytic activity/Vol] 28 U/L 13-56 [facility] CO2 [Moles/Vol] 24.0 mmol/L 21.0-32.0 [facility] Globulin (S) [Mass/Vol] 3.2 g/dL 2.2-4.2 [facility] Lipase [Catalytic activity/Vol] 28 U/L 13-75 [facility] Comment on above: Please note:LIPASE r evised reference range effective 22. New Lipase methodology. Expected to produce lower values than the previous assay method. NEW Reference Range: 13 - 75 U/L Urea nitrogen/Creatinine [Mass ratio] 15.9 mg/mg 10-20 [facility] Laboratory - Hematology and Cell countsOrdered By: Kristofer Low on 08-17-2022 Erythrocyte distribution width (RBC) [Entitic vol] 47.7 fL 35.1-43.9 [facility] Erythrocyte distribution width (RBC) [Ratio] 13.8 % 11.6-14.6 [facility] Immature granulocytes/100 WBC (Bld) 0.400 % 0.0-0.9 [facility] Comment on above: IG% - Immature Granu locytes (promyelocytes, myelocytes and metamyelocytes) > 1% indicates that a LEFT SHIFT is Present. MCH (RBC) [Entitic mass] 31.2 pg 27.0-32.0 [facility] Nucleated RBC/100 WBC (Bld) [Ratio] 0 % 0-5 [facility] MCHC Auto (RBC) [Mass/Vol]Or dered By: Kristofer Low on 08-17-2022 MCHC (RBC) [Mass/Vol] 32.9 g/dL 32-36 [facility] No Panel InformationOrdered By: Kristofer Low on 08-17-2022 Estimated GFR (MDRD) Amer 176 mL/min >60 [facility] Comment on above: GFR Calc Estimated GFR (MDRD) Non-Af Amer 145 mL/min >60 [facility] Comment on above: Non- GFR Calc Platelets bldOrdered By: Lila Low on 08-17-2022 Platelets (Bld) [#/Vol] 137 10*3/uL 150-450 [facility] Serum or plasma albumin reynaldo urement (mass/volume)Ordered By: Kristofer Low on 08-17-2022 Albumin [Mass/Vol] 2.4 g/dL 3.2-5.0 [facility] Serum or plasma albumin/glob ulin mass ratioOrdered By: Kristofer Low on 08-17-2022 Albumin/Globulin [Mass ratio] 0.8 {ratio} 0.9-2.4 [facility] Serum or plasma calcium reynaldo urement (mass/volume)Ordered By: Kristofer Low on 08-17-2022 Calcium [Mass/Vol] 7.6 mg/dL 8.5-10.1 [facility] Serum or plasma creatinine m easurement (mass/volume)Ordered By: Kristofer Low on 08-17-2022 Creatinine [Mass/Vol] 0.56 mg/dL 0.55-1.02 [facility] Comment on above: The validity of the calculated GFR & GFRAA in patients over 70 years has not been determined. Clinical correlation is essential. Serum or plasma urea nitroge n measurement (mass/volume)Ordered By: Kristofer Low on 08-17-2022 Urea nitrogen [Mass/Vol] 9 mg/dL 7-18 [facility] Thin prep Papanicolaou smear with manual screeningOrdered By: Kristofer Low on 08-17-2022 Thin prep Papanicolaou smear with manual screening 46 U/L 15-37 [facility] Thin prep Papanicolaou smear with manual screening 5 5-15 [facility] CBC AND DIFFERENTIALon 07-12 % AUTOMATED IMMATURE GRAN 0.2 % Normal 0.0 - 0.9 [facility] Comment on above: Result Comment: Betty ture Granulocyte Count (IG) includes promyelocytes, myelocytes and metamyelocytes but does not include bands. Percent differential counts (%) should be interpreted in the context of the absolute cell counts (cells/L). Performed By: #### C BCDF #### [address] [address] Basophils (Bld) [#/Vol] 0.02 10*3/uL Normal 0.00 - 0.1 0 [facility] Comment on above: Performed By: #### C BCDF #### 75 [address] [address] Basophils/100 WBC (Bld) 0.3 % Normal 0.0 - 2.0 [facility] Comment on above: Performed By: #### C BCDF #### [address] [address] Eosinophils (Bld) [#/Vol] 0.24 10*3/uL Normal 0.00 - 0.70 [facility] Comment on above: Performed By: #### C BCDF #### [address] [address] Eosinophils/100 WBC (Bld) 3.8 % Normal 0.0 - 6.0 [facility] Comment on above: Performed By: #### C BCDF #### [address] [address] Erythrocyte distribution width (RBC) [Ratio] 14.1 % Normal 11.5 - 14.5 [facility] Comment on above: Performed By: #### C BCDF #### [address] [address] Hematocrit (Bld) [Volume fraction] 32.2 % Low 36.0 - 46.0 [facility] Comment on above: Performed By: #### C BCDF #### [address] [address] Hemoglobin (Bld) [Mass/Vol] 10.7 g/dL Low 12.0 - 16.0 [facility] Comment on above: Performed By: #### C BCDF #### [address] [address] Lymphocytes (Bld) [#/Vol] 1.40 10*3/uL Normal 1.20 - 4.80 [facility] Comment on above: Performed By: #### C BCDF #### [address] [address] Lymphocytes/100 WBC (Bld) 22.2 % Normal 13.0 - 44.0 [facility] Comment on above: Performed By: #### C BCDF #### [address] [address] MCHC (RBC) [Mass/Vol] 33.2 g/dL Normal 32.0 - 36.0 [facility] Comment on above: Performed By: #### C BCDF #### [address] [address] MCV (RBC) [Entitic vol] 93 fL Normal 80 - 100 [facility] Comment on above: Performed By: #### C BCDF #### [address] [address] Monocytes (Bld) [#/Vol] 0.45 10*3/uL Normal 0.10 - 1.0 0 [facility] Comment on above: Performed By: #### C BCDF #### [address] [address] Monocytes/100 WBC (Bld) 7.1 % Normal 2.0 - 10.0 [facility] Comment on above: Performed By: #### C BCDF #### [address] [address] Neutrophils (Bld) [#/Vol] 4.20 10*3/uL Normal 1.20 - 7.70 [facility] Comment on above: Result Comment: Perc ent differential counts (%) should be interpreted in the context of the absolute cell counts (cells/L). Performed By: #### C BCDF #### [address] [address] Neutrophils/100 WBC (Bld) 66.4 % Normal 40.0 - 80.0 [facility] Comment on above: Performed By: #### C BCDF #### [address] [address] Platelets (Bld) [#/Vol] 136 10*3/uL Low 150 - 450 [facility] Comment on above: Performed By: #### C BCDF #### [address] [address] RBC 3.48 x10E12/L Low 4.00 - 5.20 [facility] Comment on above: Performed By: #### C BCDF #### [address] [address] WBC (Bld) [#/Vol] 6.3 10*3/uL Normal 4.4 - 11.3 [facility] Comment on above: Performed By: #### C BCDF #### [address] [address] COMPREHENSIVE PANELon 2022 Albumin [Mass/Vol] 3.4 g/dL Normal 3.4 - 5.0 [facility] Comment on above: Performed By: #### C MP #### [address] [address] ALP [Catalytic activity/Vol] 40 U/L Normal 33 - 110 [facility] Comment on above: Performed By: #### C MP #### [address] [address] ALT [Catalytic activity/Vol] 11 U/L Normal 7 - 45 [facility] Comment on above: Result Comment: Gema ents treated with Sulfasalazine may generate falsely decreased results for ALT. Performed By: #### C MP #### [address] [address] Anion gap [Moles/Vol] 8 mmol/L Low 10 - 20 [facility] Comment on above: Performed By: #### C MP #### [address] [address] AST [Catalytic activity/Vol] 12 U/L Normal 9 - 39 [facility] Comment on above: Performed By: #### C MP #### [address] [address] Bilirubin [Mass/Vol] 0.4 mg/dL Normal 0.0 - 1.2 [facility] Comment on above: Performed By: #### C MP #### [address] [address] Calcium [Mass/Vol] 8.4 mg/dL Low 8.6 - 10.3 [facility] Comment on above: Performed By: #### C MP #### [address] [address] Chloride [Moles/Vol] 104 mmol/L Normal 98 - 107 [facility] Comment on above: Performed By: #### C MP #### [address] [address] Creatinine [Mass/Vol] 0.45 mg/dL Low 0.50 - 1.05 [facility] Comment on above: Performed By: #### C MP #### [address] [address] eGFR FEMALE >90 Normal >90 [facility] Comment on above: Result Comment: CALC ULATIONS OF ESTIMATED GFR ARE PERFORMED USING THE 2020 CKD-EPI STUDY REFIT EQUATION WITHOUT THE RACE VARIABLE FOR THE IDMS-TRACEABLE CREATININE METHODS. https://jasn.asnjournals.org/content/early//ASN.2020 447860 Performed By: #### C MP #### [address] [address] Glucose [Mass/Vol] 74 mg/dL Normal 74 - 99 [facility] Comment on above: Performed By: #### C MP #### [address] [address] HCO3 (Bld) [Moles/Vol] 27 mmol/L Normal 21 - 32 [facility] Comment on above: Performed By: #### C MP #### [address] [address] Potassium [Moles/Vol] 3.8 mmol/L Normal 3.5 - 5.3 [facility] Comment on above: Performed By: #### C MP #### [address] [address] Protein [Mass/Vol] 5.7 g/dL Low 6.4 - 8.2 [facility] Comment on above: Performed By: #### C MP #### [address] [address] Sodium [Moles/Vol] 135 mmol/L Low 136 - 145 [facility] Comment on above: Performed By: #### C MP #### [address] [address] Urea nitrogen [Mass/Vol] 5 mg/dL Low 6 - 23 [facility] Comment on above: Performed By: #### C MP #### [address] [address] LACTATEon 07-12-2022 Lactate [Moles/Vol] 0.5 mmol/L Normal 0.4 - 2.0 [facility] Comment on above: Result Comment: Nilam puncture immediately after or during the administration of Metamizole may lead to falsely low results. Testing should be performed immediately prior to Metamizole dosing. Performed By: #### L ACT #### [address] [address] LIPASEon 07-12-2022 Lipase [Catalytic activity/Vol] 8 U/L Low 9 - 82 [facility] Comment on above: Result Comment: Nilam puncture immediately after or during the administration of Metamizole may lead to falsely low results. Testing should be performed immediately prior to Metamizole dosing. E-vzqcej-f-benzoquinone imine (metabolite of Acetaminophen) will generate erroneously low results in samples for patients that have taken toxic doses of acetaminophen. Performed By: #### L IPAS #### [address] [address] Provider Note - ED v3on 06 Provider Note - ED v3 Provider Note: [...] home. She was referred back to her BOND TRADER and - general surgeon for follow up. This chart was dictated with the use of [email or web address] software within the framework of the current [...] HISTORY: No docume (more content not included)... [facility] Risk Screen - Adult Emergenc yon 07-12-2022 Risk Screen - Adult Emergency Preferred Language: Preferred Language: Preferred Language for Discussing Health Care (patient/designee)Scotty wilcox Patient Preferred Pharmacy: Patient Preferred Pharmacy Statement: [...] instruction; written material Cultural Considerationsnone Developmental Considerationsnone Nondenominational Considerationsnone Learning Assessment (Other Learner): Learning Assessment [...] an injured patient at a Trauma Center ([facility]/[place]/[facility]/[place]): no Electronic Signatures: Kayla Sullivan (SUPV) (Signed 12-Jul-2022 13:37) Authored: Preferred Language, Patient Preferred Pharmacy, Advanced Directives, Family Violence Adult, Learning Assessment (Patient), Learning Assessment (Other Learner), Pressure Injury/TB/Substance, Pressure Injury, CAGE Last Updated: 12-Jul-2022 13:37 by Kayla Sullivan (SUPV) [facility] Triage - EDon 07-12-2022 Triage - [...] BMI (kg/m2): 21.289 Calculated BSA (m2) 1.56 Zoran Coma Scale: Best Eye Response: (E4) spontaneous Best Motor Response: (M6) obeys commands Best Verbal Response: (V5) oriented Zoran Score: 15 Allergies: no BOND TRADER History: Patient has homicidal thoughts: no Symptoms [...] 12-Jul-2022 13:35 by Kayla Sullivan (SUPV) Normal [facility] URINALYSIS WITH CULTURE IF I NDICATEDon 07-12-2022 Appearance (U) HAZY Normal CLEAR [facility] Comment on above: Performed By: #### U ARFX #### [place] [address] Bilirubin Ql (U) Negative Normal NEGATIVE [facility] Comment on above: Performed By: #### U ARFX #### [place] [address] Color (U) Yellow Normal STRAW,YELLOW [facility] Comment on above: Performed By: #### U ARFX #### [place] [address] Glucose Ql (U) Negative Normal NEGATIVE [facility] Comment on above: Performed By: #### U ARFX #### [address] [address] Hemoglobin Ql (U) Negative Normal NEGATIVE [facility] Comment on above: Performed By: #### U ARFX #### [place] [id number] Ketones Ql (U) Negative Normal NEGATIVE [facility] Comment on above: Performed By: #### U ARFX #### [place] [id number] Leukocyte esterase Test strip Ql (U) Negative Normal NEGATIVE [facility] Comment on above: Performed By: #### U ARFX #### [place] [id number] Nitrite Ql (U) Negative Normal NEGATIVE [facility] Comment on above: Performed By: #### U ARFX #### [address] [address] pH (U) 8.0 [pH] Normal 5.0 - 8.0 [facility] Comment on above: Performed By: #### U ARFX #### [address] [address] Protein Ql (U) Negative Normal NEGATIVE [facility] Comment on above: Performed By: #### U ARFX #### [address] [address] Specific gravity (U) [Rel density] 1.014 Normal 1.005 - 1.035 [facility] Comment on above: Performed By: #### U ARFX #### [address] [address] Urobilinogen (U) [Mass/Vol] mg/dL Normal 0.0 - 1.9 [facility] Comment on above: Performed By: #### U ARFX #### [address] [address] US GALLBLADDERon 07-12-2022 US GALLBLADDER STUDY: Right Upper Quadrant Ultrasound; Completed Time: 07/12/2022 15:04 INDICATION: Generalized abdominal pain. Nausea/vomiting. 16 weeks . COMPARISON: None available. ACCESSION NUMBER(S): [id number] ORDERING CLINICIAN: MAURICIO REYES DO TECHNIQUE: Ultrasound [...] DO Electronically signed by: VERNA BURROWS DO [facility] Absolute lymphocyte countOrd ered By: Neelima Dahl on 05-24-2022 Lymphocytes Auto (Unsp spec) [#/Vol] 1.63 10*3/uL 0.83-4.51 [facility] Basophil percentageOrdered B y: Neelima Dahl on 05-24-2022 Basophils/100 WBC (Bld) 0.6 % 0-1 [facility] Eosinophils/100 WBC (Bld) 1.4 % 0-5 [facility] Neutrophils (Bld) [#/Vol] 2.8 10*3/uL 2.0-7.7 [facility] Neutrophils/100 WBC (Bld) 55.5 % 47-70 [facility] WBC (Bld) [#/Vol] 5.0 10*3/uL 4.4-11.0 [facility] Blood erythrocytes count (nu mber/volume)Ordered By: Neelima Dahl on 05-24-2022 RBC (Bld) [#/Vol] 4.08 10*6/uL 4.2-5.4 [facility] Blood hemoglobin measurement (mass/volume)Ordered By: Neelima Dahl on 05-24-2022 Hemoglobin (Bld) [Mass/Vol] 12.2 g/dL 12.0-15.0 [facility] Blood lymphocytes/100 leukoc ytesOrdered By: Neelima Dahl on 05-24-2022 Lymphocytes/100 WBC (Bld) 32.5 % 19-41 [facility] Blood monocytes/100 leukocyt esOrdered By: Neelima Dahl on 05-24-2022 Monocytes/100 WBC (Bld) 9.8 % 0-10 [facility] Blood platelet mean volumeOr dered By: Neelima Dahl on 05-24-2022 Platelet mean volume (Bld) [Entitic vol] 11.4 fL 6.2-12.0 [facility] C. trachomatis+N. gonorrhoea e DNA SHYAM+probe Ql (Unsp spec)on 05-24-2022 C. trachomatis rRNA SHYAM+probe Ql (Unsp spec) Negative Negative for Chlamydia trachomatis by amplificaton [facility] N. gonorrhoeae rRNA SHYAM+probe Ql (Unsp spec) Negative Negative for Neisseria gonorrhoeae by amplification [facility] Culture, urineOrdered By: Pedro Dahl on 05-24-2022 Bacteria identified Cx Nom (U) Culture exhibits no growth. [facility] Determination of erythrocyte mean corpuscular volume (MCV)Ordered By: Neelima Dahl on 05-24-2022 MCV (RBC) [Entitic vol] 91.2 fL 81-99 [facility] HEP B SURF AG SCRNon 023 HBV surface Ag Ql (S) Non-Reactive [facility] ANTIBODY IA WITH CONFIRMATIONon 05-24-2022 HCV Ab Ql (S) Negative Negative [facility] HIV 1 and HIV-2 antibody ass ay with HIV-1 p24 antigen detectionOrdered By: Neelima Dahl on 05-24-2022 HIV 1+2 Ab+HIV1 p24 Ag IA Ql Non-Reactive [facility] HIV COMBO (AC)on 05-24-2022 HIV Combo Non-Reactive [facility] Hematocrit Auto (Bld) [Volum e fraction]Ordered By: Neelima Dahl on 05-24-2022 Hematocrit (Bld) [Volume fraction] 37.2 % 37-47 [facility] Laboratory - Hematology and Cell countsOrdered By: Neelima Dahl on 05-24-2022 Erythrocyte distribution width (RBC) [Entitic vol] 46.2 fL 35.1-43.9 [facility] Erythrocyte distribution width (RBC) [Ratio] 13.8 % 11.6-14.6 [facility] Immature granulocytes/100 WBC (Bld) 0.200 % 0.0-0.9 [facility] Comment on above: IG% - Immature Granu locytes (promyelocytes, myelocytes and metamyelocytes) > 1% indicates that a LEFT SHIFT is Present. MCH (RBC) [Entitic mass] 29.9 pg 27.0-32.0 [facility] Nucleated RBC/100 WBC (Bld) [Ratio] 0 % 0-5 [facility] MCHC Auto (RBC) [Mass/Vol]Or dered By: Neelima Dahl on 05-24-2022 MCHC (RBC) [Mass/Vol] 32.8 g/dL 32-36 [facility] No Panel InformationOrdered By: Neelima Dahl on 05-24-2022 Hepatitis B Surface Antigen Non-Reactive Nonreactive [facility] Hepatitis C Antibody Non-Reactive Nonreactive [facility] Comment on above: Non Reactive: < 0.8 Equivocal: >/= 0.8 to < 1.0 Reactive: >/= 1.0The CDC recommends that a reactive/equivocal HCV antibody result be followed up by the HCV Nucleic Acid Amplificationtest (395126) Rubella IgG Antibody Reactive Nonreactive [facility] Comment on above: Antibody Results Int erpretation of Immune Status Non Reactive Presumed Non-Immune Equivocal Equivocal Reactive Presumed Immune Platelets bldOrdered By: Curtis Dahl on 05-24-2022 Platelets (Bld) [#/Vol] 249 10*3/uL 150-450 [facility] RUBELLA IGG ABon 05-24-2022 Rubella IgG, Qual Positive Positive [facility] Reagin and Treponema pallidu m IgG and IgM [Interp]on 05-24-2022 Syphilis Screen Result Non-Reactive [facility] Serum Treponema species anti body detectionOrdered By: Neelima Dahl on 05-24-2022 Treponema sp Ab Ql (S) Non-Reactive [facility] Serum Varicella zoster virus IgG antibody assay by immunoassay (units/volume)Ordered By: Neelima Dahl on 05-24-2022 VZV IgG IA Qn (S) 404 index Immune >165 [facility] Comment on above: Negative <135 Equivo hoda 135 - 165 Positive >165A positive result generally indicates exposure to thepathogen or administration of specific immunoglobulins,but it is not indication of active infection or stageof disease.Performed at: [facility] [id number] Director: Rakan Gomez PhD, Phone: [phone] Serum or plasma choriogonado tropin detectionOrdered By: Dr. Dalh on 04-19-2022 HCG ( test) Ql 1067 mIU/mL <4 [facility] Comment on above: hCG levels with Gest ational AgeGestational Age hCG mIU/mL (IU/L)0.2 - 1 week 5 - 501-2 weeks 50 - 5002-3 weeks 100 - 09694-7 weeks 500 - 979552-4 weeks 1000 - 987380-1 weeks [address]28 - 100,0006-8 weeks 66157 - 200,0002-3 months [address] - 100,000 HIV 1 and HIV-2 antibody ass ay with HIV-1 p24 antigen detectionOrdered By: Dr. Dahl on 02-07-2022 HIV 1+2 Ab+HIV1 p24 Ag IA Ql Non-Reactive Nonreactive [facility] Laboratory - Chemistry and C hemistry - challengeOrdered By: Dr. Dahl on 02-07-2022 Free T4 [Mass/Vol] 0.91 ng/dL 0.76-1.46 [facility] No Panel InformationOrdered By: Dr. Dahl on 02-07-2022 Hepatitis A Antibody Total Positive Negative [facility] Comment on above: Performed at: [facility] [address] [id number] Director: Rakan Gomez PhD, Phone: [phone] Hepatitis A IgM Antibody Negative Negative [facility] Hepatitis B Core IgM Antibody Negative Negative [facility] Hepatitis C Antibody (EIA) <0.1 s/co ratio 0.0-0.9 [facility] Hepatitis C Antibody Comment Comment . [facility] Comment on above: NegativeNot infected with HCV, unless recent infection issuspected or other evidence exists to indicate HCVinfection. Thyroid Stimulating Hormone (TSH) 1.76 uIU/mL 0.358-3.74 [facility] Serum Treponema species anti body detectionOrdered By: Dr. Dahl on 02-07-2022 Treponema sp Ab Ql (S) Non-Reactive [facility] Serum hepatitis B virus surf sarita antibody IgG detectionOrdered By: Dr. Dahl on 02-07-2022 HBV surface IgG Ql (S) Non-Reactive [facility] Comment on above: Non Reactive: Incons istent with immunity less than <10 mIU/mL Reactive: Consistent with immunity greater than or equal to 10 mIU/mL Serum or plasma hepatitis B virus surface antigen detection by immunoassayOrdered By: Dr. Dahl on 02-07-2022 HBV surface Ag IA Ql Negative Negative [facility] Serum or plasma prolactin me asurement (mass/volume)Ordered By: Dr. Dahl on 02-07-2022 Prolactin [Mass/Vol] 27.2 ng/mL [facility] Comment on above: NORMAL REFERENCE RAN GES FEMALE NON- 2.2 - 30.3 ng/mL 8.1 - 347.6 ng/mL POST-MENOPAUSAL 0.7 - 31.5 ng/mL MALE 2.5 - 17.4 ng/mL HIV 1 and HIV-2 antibody ass ay with HIV-1 p24 antigen detectionon 12-12-2021 HIV 1+2 Ab+HIV1 p24 Ag IA Ql Non-Reactive Nonreactive [facility] Work Phone: Basophil percentageon 2021 Bilirubin [Mass/Vol] 0.40 mg/dL 0.20-1.00 [facility] Work Phone: Comment on above: For patients on eltr ombopag therapy, use of [facility] [place] TBIL is not recommended. Chloride [Moles/Vol] 108 mmol/L 98-107 [facility] Work Phone: Glucose [Mass/Vol] 65 mg/dL 74-106 [facility] Work Phone: Potassium [Moles/Vol] 4.1 mmol/L 3.5-5.1 [facility] Work Phone: Protein [Mass/Vol] 6.7 g/dL 6.4-8.2 [facility] Work Phone: Sodium [Moles/Vol] 141 mmol/L 136-145 [facility] Work Phone: WBC (Bld) [#/Vol] 6.5 10*3/uL 4.4-11.0 [facility] Work Phone: Blood erythrocytes count (nu mber/volume)on 12-01-2021 RBC (Bld) [#/Vol] 4.09 10*6/uL 4.2-5.4 [facility] Work Phone: Blood hemoglobin measurement (mass/volume)on 12-01-2021 Hemoglobin (Bld) [Mass/Vol] 13.0 g/dL 12.0-15.0 [facility] Work Phone: Blood platelet mean volumeon 12-01-2021 Platelet mean volume (Bld) [Entitic vol] 12.0 fL 6.2-12.0 [facility] Work Phone: Determination of erythrocyte mean corpuscular volume (MCV)on 12-01-2021 MCV (RBC) [Entitic vol] 94.1 fL 81-99 [facility] Work Phone: [phone] Hematocrit Auto (Bld) [Volum e fraction]on 12-01-2021 Hematocrit (Bld) [Volume fraction] 38.5 % 37-47 [facility] Work Phone: Iron measurement (mass/mass) on 12-01-2021 Iron (Unsp spec) [Mass/Mass] 28 ug/dL 50-170 [facility] Work Phone: Laboratory - Chemistry and C hemistry - challengeon 12-01-2021 ALP [Catalytic activity/Vol] 51 U/L 45-117 [facility] Work Phone: ALT [Catalytic activity/Vol] 21 U/L 13-56 [facility] Work Phone: [phone] CO2 [Moles/Vol] 28.0 mmol/L 21.0-32.0 [facility] Work Phone: Globulin (S) [Mass/Vol] 3.2 g/dL 2.2-4.2 [facility] Work Phone: [phone] Urea nitrogen/Creatinine [Mass ratio] 10.5 mg/mg 10-20 [facility] Work Phone: [phone] Laboratory - Hematology and Cell countson 12-01-2021 Erythrocyte distribution width (RBC) [Entitic vol] 45.0 fL 35.1-43.9 [facility] Work Phone: Erythrocyte distribution width (RBC) [Ratio] 13.1 % 11.6-14.6 [facility] Work Phone: MCH (RBC) [Entitic mass] 31.8 pg 27.0-32.0 [facility] Work Phone: MCHC Auto (RBC) [Mass/Vol]on 12-01-2021 MCHC (RBC) [Mass/Vol] 33.8 g/dL 32-36 [facility] Work Phone: No Panel Informationon 12-01 Estimated GFR (MDRD) Amer 147 mL/min >60 [facility] Work Phone: Comment on above: GFR Calc Estimated GFR (MDRD) Non-Af Amer 121 mL/min >60 [facility] Work Phone: Comment on above: Non- GFR Calc Thyroid Stimulating Hormone (TSH) 0.83 uIU/mL 0.358-3.74 [facility] Work Phone: Total Iron Binding Capacity 339 ug/dL 250-450 [facility] Work Phone: [phone] Vitamin D 25-Hydroxy 30.6 ng/mL [facility] Work Phone: Comment on above: Vitamin D 25(OH) Sta tus Range Deficiency <20 ng/mL (50nmol/L) Insufficiency 20 - 30 ng/mL (50 - 75 nmol/L) Sufficiency 30 - 100 ng/mL (75 - 250 nmol/L) Toxicity >100 ng/mL (>250 nmol/L) Platelets bldon 12-01-2021 Platelets (Bld) [#/Vol] 213 10*3/uL 150-450 [facility] Work Phone: [phone] Serum or plasma albumin reynaldo urement (mass/volume)on 12-01-2021 Albumin [Mass/Vol] 3.5 g/dL 3.2-5.0 [facility] Work Phone: [phone] Serum or plasma albumin/glob ulin mass ratioon 12-01-2021 Albumin/Globulin [Mass ratio] 1.1 {ratio} 0.9-2.4 [facility] Work Phone: [phone] Serum or plasma calcium reynaldo urement (mass/volume)on 12-01-2021 Calcium [Mass/Vol] 8.8 mg/dL 8.5-10.1 [facility] Work Phone: [phone] Serum or plasma creatinine m easurement (mass/volume)on 12-01-2021 Creatinine [Mass/Vol] 0.67 mg/dL 0.55-1.02 [facility] Work Phone: Comment on above: The validity of the calculated GFR & GFRAA in patients over 70 years has not been determined. Clinical correlation is essential. Serum or plasma ferritin jose raul surement (mass/volume)on 12-01-2021 Ferritin [Mass/Vol] 34 ng/mL 8-252 [facility] Work Phone: Serum or plasma urea nitroge n measurement (mass/volume)on 12-01-2021 Urea nitrogen [Mass/Vol] 7 mg/dL 7-18 [facility] Work Phone: Thin prep Papanicolaou smear with manual screeningon 12-01-2021 Thin prep Papanicolaou smear with manual screening 11 U/L 15-37 [facility] Work Phone: Thin prep Papanicolaou smear with manual screening 5 5-15 [facility] Work Phone: Whole blood hemoglobin A1c/t otal hemoglobin ratio (mass fraction)on 12-01-2021 HbA1c (Bld) [Mass fraction] 5.1 % 3.8-5.6 [facility] Work Phone: Comment on above: Normal < 5.7 % Predi abetic 5.7 - 6.4 % Diabetic >or= 6.5 % Please note range changes. UA DIP, URINE (POC)on 2021 BILIRUBIN UA (POCT) Negative Negative [facility] CLARITY UA (POCT) Clear [facility] COLOR UA (POCT) Yellow [facility] GLUCOSE UA (POCT) Negative Negative mg/dL [facility] HEMOGLOBIN/BLOOD UA (POCT) Negative Negative [facility] KETONE UA (POCT) Negative Negative mg/dL [facility] LEUKOCYTES UA (POCT) Negative Negative [facility] NITRITE UA (POCT) Negative Negative [facility] PH UA (POCT) 6.5 4.5 - 8.[address] [facility] Protein Ql (U) 30 mg/dL Abnormal Negative mg/dL [facility] SPECIFIC GRAVITY UA (POCT) 1.020 1.005 - 1.[address] [facility] UROBILINOGEN UA (POCT) 0.2 E.U./dL Normal E.U./ dL [facility] Absolute lymphocyte counton 10-31-2021 Lymphocytes Auto (Unsp spec) [#/Vol] 2.34 10*3/uL 0.83-4.51 [facility] Work Phone: Basophil percentageon 2021 Basophils/100 WBC (Bld) 0.3 % 0-1 [facility] Work Phone: Bilirubin [Mass/Vol] 0.50 mg/dL 0.20-1.00 [facility] Work Phone: Comment on above: For patients on eltr ombopag therapy, use of [facility] [place] TBIL is not recommended. Chloride [Moles/Vol] 105 mmol/L 98-107 [facility] Work Phone: Eosinophils/100 WBC (Bld) 1.0 % 0-5 [facility] Work Phone: Glucose [Mass/Vol] 66 mg/dL 74-106 [facility] Work Phone: Neutrophils (Bld) [#/Vol] 3.7 10*3/uL 2.0-7.7 [facility] Work Phone: Neutrophils/100 WBC (Bld) 56.1 % 47-70 [facility] Work Phone: Potassium [Moles/Vol] 3.4 mmol/L 3.5-5.1 [facility] Work Phone: Protein [Mass/Vol] 7.2 g/dL 6.4-8.2 [facility] Work Phone: Sodium [Moles/Vol] 139 mmol/L 136-145 [facility] Work Phone: WBC (Bld) [#/Vol] 6.7 10*3/uL 4.4-11.0 [facility] Work Phone: Blood erythrocytes count (nu mber/volume)on 10-31-2021 RBC (Bld) [#/Vol] 4.48 10*6/uL 4.2-5.4 [facility] Work [facility]: Blood hemoglobin measurement (mass/volume)on 10-31-2021 Hemoglobin (Bld) [Mass/Vol] 14.0 g/dL 12.0-15.0 [facility] Work Phone: Blood lymphocytes/100 leukoc yteson 10-31-2021 Lymphocytes/100 WBC (Bld) 35.1 % 19-41 [facility] Work Phone: Blood monocytes/100 leukocyt eson 10-31-2021 Monocytes/100 WBC (Bld) 7.2 % 0-10 [facility] Work Phone: Blood platelet mean volumeon 10-31-2021 Platelet mean volume (Bld) [Entitic vol] 12.4 fL 6.2-12.0 [facility] Work Phone: Chlamydia trachomatis rRNA d etection by probe and target amplification methodon 10-31-2021 C. trachomatis rRNA SHYAM+probe Ql (Unsp spec) Negative Negative [facility] Work Phone: Determination of erythrocyte mean corpuscular volume (MCV)on 10-31-2021 MCV (RBC) [Entitic vol] 94.9 fL 81-99 [facility] Work Phone: Hematocrit Auto (Bld) [Volum e fraction]on 10-31-2021 Hematocrit (Bld) [Volume fraction] 42.5 % 37-47 [facility] Work Phone: Laboratory - Chemistry and C hemistry - challengeon 10-31-2021 ALP [Catalytic activity/Vol] 47 U/L 45-117 [facility] Work Phone: ALT [Catalytic activity/Vol] 22 U/L 13-56 [facility] Work Phone: CO2 [Moles/Vol] 27.0 mmol/L 21.0-32.0 [facility] Work Phone: Free T4 [Mass/Vol] 0.92 ng/dL 0.76-1.46 [facility] Work Phone: [phone] Globulin (S) [Mass/Vol] 3.3 g/dL 2.2-4.2 [facility] Work Phone: [phone] Urea nitrogen/Creatinine [Mass ratio] 10.3 mg/mg 10-20 [facility] Work Phone: [phone] Laboratory - Hematology and Cell countson 10-31-2021 Erythrocyte distribution width (RBC) [Entitic vol] 44.2 fL 35.1-43.9 [facility] Work Phone: [phone] Erythrocyte distribution width (RBC) [Ratio] 12.6 % 11.6-14.6 [facility] Work Phone: [phone] Immature granulocytes/100 WBC (Bld) 0.300 % 0.0-0.9 [facility] Work Phone: [phone] Comment on above: IG% - Immature Granu locytes (promyelocytes, myelocytes and metamyelocytes) > 1% indicates that a LEFT SHIFT is Present. MCH (RBC) [Entitic mass] 31.3 pg 27.0-32.0 [facility] Work Phone: [phone] Nucleated RBC/100 WBC (Bld) [Ratio] 0 % 0-5 [facility] Work Phone: [phone] Laboratory - Microbiology an d Antimicrobial susceptibilityon 10-31-2021 N. gonorrhoeae DNA SHYAM+probe Ql (Unsp spec) Negative Negative [facility] Work Phone: [phone] Comment on above: Performed at: =[facility] [id number] Director: Romy Mcarthur MD, Phone: [phone] MCHC Auto (RBC) [Mass/Vol]on 10-31-2021 MCHC (RBC) [Mass/Vol] 32.9 g/dL 32-36 [facility] Work Phone: [phone] No Panel Informationon 10-31 Estimated GFR (MDRD) Amer 143 mL/min >60 [facility] Work Phone: [phone] Comment on above: GFR Calc Estimated GFR (MDRD) Non-Af Amer 118 mL/min >60 [facility] Work Phone: Comment on above: Non- GFR Calc Follicle Stimulating Hormone 3.2 mIU/mL [facility] Work Phone: Comment on above: NORMAL REFERENCE RAN GES FEMALE FOLLICULAR 2.3 - 12.6 mIU/mL MID-CYCLE PEAK 5.2 - 17.5 mIU/mL LUTEAL 1.7 - 12.9 mIU/mL POST-MENOPAUSAL ON MHT 5.9 - 72.8 mIU/mL NOT ON MHT 12.7 - 132.2 mlU/mL MALE 0.7 - 10.8 mIU/mL Luteinizing Hormone 2.2 mIU/mL [facility] Work Phone: Comment on above: NORMAL REFERENCE RAN GES FEMALE FOLLICULAR 1.9 - 26.2 mIU/mL MID-CYCLE PEAK 22.8 - 76.1 mIU/mL LUTEAL 0.6 - 16.6 mIU/mL POST-MENOPAUSAL ON MHT 1.1 - 52.4 mIU/mL NOT ON MHT 8.6 - 61.8 mIU/mL MALE 1.2 - 10.6 mIU/mL Thyroid Stimulating Hormone (TSH) 0.94 uIU/mL 0.358-3.74 [facility] Work Phone: Platelets bldon 10-31-2021 Platelets (Bld) [#/Vol] 206 10*3/uL 150-450 [facility] Work Phone: Serum or plasma albumin reynaldo urement (mass/volume)on 10-31-2021 Albumin [Mass/Vol] 3.9 g/dL 3.2-5.0 [facility] Work Phone: Serum or plasma albumin/glob ulin mass ratioon 10-31-2021 Albumin/Globulin [Mass ratio] 1.2 {ratio} 0.9-2.4 [facility] Work Phone: Serum or plasma calcium reynaldo urement (mass/volume)on 10-31-2021 Calcium [Mass/Vol] 8.4 mg/dL 8.5-10.1 [facility] Work Phone: Serum or plasma choriogonado tropin detectionon 10-31-2021 HCG ( test) Ql < 1 mIU/mL <4 [facility] Work Phone: Comment on above: hCG levels with Gest ational AgeGestational Age hCG mIU/mL (IU/L)0.2 - 1 week 5 - 501-2 weeks 50 - 5002-3 weeks 100 - 43658-3 weeks 500 - 189029-9 weeks 1000 - 341151-5 weeks 41195 - 100,0006-8 weeks 05597 - 200,0002-3 months 04627 - 100,000 Serum or plasma creatinine m easurement (mass/volume)on 10-31-2021 Creatinine [Mass/Vol] 0.68 mg/dL 0.55-1.02 [facility] Work Phone: Comment on above: The validity of the calculated GFR & GFRAA in patients over 70 years has not been determined. Clinical correlation is essential. Serum or plasma prolactin me asurement (mass/volume)on 10-31-2021 Prolactin [Mass/Vol] 16.7 ng/mL [facility] Work Phone: Comment on above: NORMAL REFERENCE RAN GES FEMALE NON- 2.2 - 30.3 ng/mL 8.1 - 347.6 ng/mL POST-MENOPAUSAL 0.7 - 31.5 ng/mL MALE 2.5 - 17.4 ng/mL Serum or plasma urea nitroge n measurement (mass/volume)on 10-31-2021 Urea nitrogen [Mass/Vol] 7 mg/dL 7-18 [facility] Work Phone: Thin prep Papanicolaou smear with manual screeningon 10-31-2021 Thin prep Papanicolaou smear with manual screening 13 U/L 15-37 [facility] Work Phone: Thin prep Papanicolaou smear with manual screening 7 5-15 [facility] Work Phone: HCG QUAL UR B/Oon 08-14-2021 status Negative neg - pos [facility] Quality Check Yes [facility] UA DIP, URINE (POC)on 2021 BILIRUBIN UA (POCT) Negative Negative [facility] CLARITY UA (POCT) Cloudy [facility] COLOR UA (POCT) Yellow [facility] GLUCOSE UA (POCT) Negative Negative mg/dL [facility] HEMOGLOBIN/BLOOD UA (POCT) Negative Negative [facility] KETONE UA (POCT) Trace Negative mg/dL [facility] [place] [facility] LEUKOC[facility]TES UA (POCT) Negative Negative [facility] NITRITE UA (POCT) Negative Negative [facility] PH UA (POCT) 7.0 4.5 - 8.[address] [facility] Protein Ql (U) Negative Negative mg/dL [facility] SPECIFIC GRAVITY UA (POCT) 1.020 1.005 - 1.[address] [facility] UROBILINOGEN UA (POCT) 1.0 E.U./dL Normal E.U./ dL [facility] Serum or plasma choriogonado tropin detectionon 05-17-2021 HCG ( test) Ql 4 mIU/mL <4 [facility] Work Phone: Comment on above: hCG levels with Gest ational AgeGestational Age hCG mIU/mL (IU/L)0.2 - 1 week 5 - 501-2 weeks 50 - 5002-3 weeks 100 - 27205-6 weeks 500 - 263996-0 weeks 1000 - 980570-1 weeks 75654 - 100,0006-8 weeks 54223 - 200,0002-3 months 08317 - 100,000 Basic Panelon 07-19-2019 Anion gap [Moles/Vol] 11 mmol/L Normal 9-18 [facility] Comment on above: Performed By: #### L LP8 #### [address] [address] Calcium [Mass/Vol] 9.2 mg/dL Normal 8.4-10.2 [facility] Comment on above: Performed By: #### L LP8 #### [facility] [address] [place], [place] [address] Chloride [Moles/Vol] 98 mmol/L Normal 97-105 [facility] Comment on above: Result Comment: Refe rence ranges for this patient`s age group have not been established. These reference ranges reflect verified or established ranges for the adult population. Interpret ranges with caution using the clinical context and additional reference resources. Performed By: #### L LP8 #### [facility] [address] [place], [place] [address] CO2 Blood 25 mmol/L Normal 22-30 [facility] Comment on above: Result Comment: Refe rence ranges for this patient`s age group have not been established. These reference ranges reflect verified or established ranges for the adult population. Interpret ranges with caution using the clinical context and additional reference resources. Performed By: #### L LP8 #### [facility] [address] [place], [place] [address] Creatinine [Mass/Vol] 0.81 mg/dL Normal 0.58-0.96 [facility] Comment on above: Result Comment: Refe rence ranges for this patient`s age group have not been established. These reference ranges reflect verified or established ranges for the adult population. Interpret ranges with caution using the clinical context and additional reference resources. Performed By: #### L LP8 #### [facility] [address] [place], [place] [address] Glucose [Mass/Vol] 120 mg/dL High 74-99 [facility] Comment on above: Result Comment: Refe rence ranges for this patient`s age group have not been established. These reference ranges reflect verified or established ranges for the adult population. Interpret ranges with caution using the clinical context and additional reference resources. The [place] [employer] (ADA) provides guidance for cutoff [...] Standards of Medical Care in Diabetes 2016; [place] [employer]. Diabetes Care. 2016;39(Suppl 1). Performed By: #### L LP8 #### [facility] [address] [place], [place] [address] Potassium [Moles/Vol] 3.7 mmol/L Normal 3.7-5.1 [facility] Comment on above: Result Comment: Refe rence ranges for this patient`s age group have not been established. These reference ranges reflect verified or established ranges for the adult population. Interpret ranges with caution using the clinical context and additional reference resources. Performed By: #### L LP8 #### [facility] [address] [place], [place] [address] Sodium [Moles/Vol] 134 mmol/L Low 136-144 [facility] Comment on above: Result Comment: Refe rence ranges for this patient`s age group have not been established. These reference ranges reflect verified or established ranges for the adult population. Interpret ranges with caution using the clinical context and additional reference resources. Performed By: #### L LP8 #### [facility] [address] [place], [place] [address] Urea nitrogen [Mass/Vol] 11 mg/dL Normal 5-18 [facility] Comment on above: Performed By: #### L LP8 #### [address] [address] Cult Urineon 07-19-2019 Cult Urine Test performed at [facility] ORGANISM: *Escherichia coli (ID: 1) >100,000 CFU/ml CLSI breakpoints for therapy of uncomplicated UTI due to E. coli, K. pneumoniae or P. mirabilis were applied and may be used to predict the activity of oral agents (cefdinir, cefpodoxime, cefuroxime, and cephalexin). Normal [facility] Comment on above: Performed By: #### C _URI #### [facility] [address] [place], [place] [address] HCG, Total for ED Useon HCG Qn m[IU]/mL Normal < 5.0 [facility] Comment on above: Result Comment: Gema ents [...] result. Performed By: #### L EHCG #### [facility] [address] [place] [address] Hemogramon 07-19-2019 Erythrocyte distribution width (RBC) [Ratio] 14.2 % Normal 11.5-15.0 [facility] Comment on above: Performed By: #### L CBC #### [facility] [address] [place] [address] Hematocrit (Bld) [Volume fraction] 44.1 % Normal 36.0-46.0 [facility] Comment on above: Performed By: #### L CBC #### [place] [address] Hemoglobin (Bld) [Mass/Vol] 14.4 g/dL Normal 11.5-15.5 [facility] Comment on above: Performed By: #### L CBC #### [place] [address] MCH (RBC) [Entitic mass] 29.6 pg Normal 26.0-34.0 [facility] Comment on above: Performed By: #### L CBC #### [place] [address] MCHC (RBC) [Mass/Vol] 32.7 % Normal 30.5-36.0 [facility] Comment on above: Performed By: #### L CBC #### [place] [address] MCV (RBC) [Entitic vol] 90.7 fL Normal 80.0-100.0 [facility] Comment on above: Performed By: #### L CBC #### [place] [address] Platelet mean volume (Bld) [Entitic vol] 12.5 fL Normal 9.0-12.7 [facility] Comment on above: Performed By: #### L CBC #### [place] [address] Platelets (Bld) [#/Vol] 129 thou/cmm Low 150-400 [facility] Comment on above: Performed By: #### L CBC #### [facility] [address] [place] [address] RBC (Bld) [#/Vol] 4.86 mil/cmm Normal 3.90-5.20 [facility] Comment on above: Performed By: #### L CBC #### [place] [address] WBC (Bld) [#/Vol] 10.8 thou/cmm Normal 3.7-11.0 [facility] Comment on above: Performed By: #### L CBC #### [place] [address] Urinalysis Routineon 020 Appearance (U) 3+ (CLOUDY) Normal [facility] Comment on above: Performed By: #### L URIN #### [place] [address] Bacteria LM.HPF (Urine sed) [#/Area] MODERATE Abnormal None [facility] Comment on above: Performed By: #### L URIN #### [place] [address] Bilirubin Urine see below Normal Negative [facility] Comment on above: Result Comment: Dete cted (Unable to confirm). Performed By: #### L URIN #### [place] [address] Color (U) YELLOW Normal [facility] Comment on above: Performed By: #### L URIN #### [place] [address] Ep Cells Urine 2-5 Normal 0-5 [facility] Comment on above: Performed By: #### L URIN #### [place] [address] Glucose Ql (U) Negative Normal Negative [facility] Comment on above: Performed By: #### L URIN #### [place] [address] Hemoglobin,Urine 2+ Abnormal Negative [facility] Comment on above: Performed By: #### L URIN #### [facility] [address] [place] [address] Ketone Urine 3+ Abnormal Negative [facility] Comment on above: Performed By: #### L URIN #### [facility] [address] [place] [address] Leukocytes Esterase 1+ Abnormal Negative [facility] Comment on above: Performed By: #### L URIN #### [facility] [address] [place] [address] Mucus Threads FEW Normal None [facility] Comment on above: Performed By: #### L URIN #### [facility] [address] [place] [address] Nitrites Urine Positive Abnormal Negative [facility] Comment on above: Performed By: #### L URIN #### [place] [address] pH (U) 6.0 [pH] Normal 5.0-8.0 [facility] Comment on above: Performed By: #### L URIN #### [place] [address] Protein (U) [Mass/Vol] 3+ Abnormal Negative [facility] Comment on above: Performed By: #### L URIN #### [place] [address] RBC LM.HPF (Urine sed) [#/Area] 7-12 Abnormal 0-3 [facility] Comment on above: Performed By: #### L URIN #### [place] [address] Specific [place], Ur 1.020 Normal 1.005-1.030 [facility] Comment on above: Performed By: #### L URIN #### [place] [address] Urobilinogen,Ur 2.0 EU/dL High 0.2-1.0 [facility] Comment on above: Performed By: #### L URIN #### [place] [address] WBC LM.HPF (Urine sed) [#/Area] 21-35 Abnormal 0-5 [facility] Comment on above: Performed By: #### L URIN #### [facility] [address] [place] [address] PROGRESSon 08-07-2017 [facility] NOTES Normal [facility] CHLAM/GC AMPLIFon 07-31-2017 CHLAMYDIA NUC. AMP Negative Normal Negative [facility] GONOCOCCUS NUC. AMP Negative Normal Negative [facility] Comment on above: Result Comment: PERF ORMED AT [facility] PROGRESSon 07-30-2017 [facility] NOTES Normal [facility] PROGRESSon 07-29-2017 [facility] NOTES Normal [facility] TRICH VAG BY NAAon 8 TRICH VAG BY SHYAM Negative Normal Negative [facility] Comment on above: Result Comment: PERF ORMED AT [facility] Addendumon 07-24-2017 [facility] HIM CAC NOTES Normal [facility] FIBRONECTINon 07-25-19 18 FIBRONECTIN Negative Normal NEGATIVE [facility] Comment on above: Result Comment: NO F ETAL FIBRONECTIN DETECTED.Testing performed at [place] [address] Performed By: #### F FN ####[place] [address] PROGRESSon 07-24-2017 [facility] NOTES Normal [facility] STREP SCREEN GRP Bon 018 STREP SCREEN GRP B SPECIMEN DESCRIPTION VAGINAL SPECIMEN * Result Note: REC * CULTURE NO GROUP B BETA STREP ISOLATED * Result Note: Testing performed at [place] [address] * REPORT STATUS 07/26/2017 * Result Note: FINAL * Normal [facility] Comment on above: Performed By: #### O BSC ####[place] [address] CBCon 07-11-2017 Basophils/100 WBC Auto (Bld) 0 % Normal 0.0-2.0 [facility] Comment on above: Performed By: #### A CBC ####[place] [address] DTYPE AUTO DIFF RESULTS VERIFIED BY SCAN Normal [facility] Comment on above: Performed By: #### A CBC ####Testing performed at [place] [id number] Eosinophils/100 leukocytes 1 % Normal 0.0-11.0 [facility] Comment on above: Performed By: #### A CBC ####[place] [address] Erythrocyte morphology 1+ Normal [facility] Comment on above: Result Comment: POLY CHROMIA1+ANISOCYTE Performed By: #### A CBC ####[place] [address] Lymphocytes/100 leukocytes 18 % Low 20.0-55.0 [facility] Comment on above: Performed By: #### A CBC ####[place] [address] Monocytes/100 leukocytes 10 % Normal 0.0-10.0 [facility] Comment on above: Performed By: #### A CBC ####[place] [address] Neutrophils/100 leukocytes 71 % Normal 37.0-75.0 [facility] Comment on above: Performed By: #### A CBC ####Testing performed at [place] [id number] PLATELET COMMENT GIANT PLTS Normal [facility] Comment on above: Result Comment: ADEQ UATETesting performed at [place] [address] Performed By: #### A CBC ####[place] [address] WBC MORPHOLOGY <10% BANDS PRESENT Normal [facility] Comment on above: Performed By: #### A CBC ####[place] [address] Erythrocyte distribution width Auto Ratio (RBC) 14.6 % High 11.5-14.5 [facility] Comment on above: Performed By: #### A CBC ####[place] [address] Erythrocytes (RBC) 3.72 /cmm Low 4.0-5.4 [facility] Comment on above: Performed By: #### A CBC ####[place] [address] Hematocrit (HCT) 33.8 % Low 36.0-48.0 [facility] Comment on above: Performed By: #### A CBC ####[place] [address] Hemoglobin mass conc (Bld) 11.5 g/dL Low 12.0-16.0 [facility] Comment on above: Performed By: #### A CBC ####[place] [address] MCH 30.9 pg Normal 26.0-35.0 [facility] Comment on above: Performed By: #### A CBC ####[place] [address] MCHC mass conc (RBC) 34.0 g/dL Normal 27.0-37.0 [facility] Comment on above: Performed By: #### A CBC ####[place] [address] MCV 91.0 fL Normal 80.0-100.0 [facility] Comment on above: Performed By: #### A CBC ####[place] [address] Platelet mean volume (PMV) 10.2 fL Normal 7.4-11.0 [facility] Comment on above: Result Comment: Test ing performed at [place] [address] Performed By: #### A CBC ####[place] [address] Platelets 141 /cmm Normal 130.0-400.0 [facility] Comment on above: Performed By: #### A CBC ####[place] [address] WBC (Leukocytes) 7.8 /cmm Normal 3.6-13.0 [facility] Comment on above: Performed By: #### A CBC ####[place] [address] PROGRESSon 07-10-2017 [facility] NOTES Normal [facility] BMP FASTINGon 07-01-2017 Anion gap 11 mmol/L Normal 8-16 [facility] Comment on above: Performed By: #### A CBC, BMPF, MG ####[place] [address] BUN (urea nitrogen) 6 mg/dL Low 7-20 [facility] Comment on above: Performed By: #### A CBC, BMPF, MG ####[place] [address] Calcium 8.5 mg/dL Low 9.2-10.7 [facility] Comment on above: Performed By: #### A CBC, BMPF, MG ####[place] [address] Chloride 103 mmol/L Normal 98-107 [facility] Comment on above: Performed By: #### A CBC, BMPF, MG ####[place] [address] CO2 24 mmol/L Normal 22-30 [facility] Comment on above: Performed By: #### A CBC, BMPF, MG ####[place] [address] Creatinine 0.4 mg/dL Low 0.6-1.2 [facility] Comment on above: Performed By: #### A CBC, BMPF, MG ####[place] [address] eGFR (non-black) Unable to calculate GFR due to inappropriate age/gender/creatinin e value. Normal [facility] Comment on above: Result Comment: Test ing performed at [place] [address] Performed By: #### A CBC, BMPF, MG ####[place] [address] Glucose mass conc 129 mg/dL High 70-100 [facility] Comment on above: Result Comment: NORM AL <100 mg/dLPREDIABETES 101-126 mg/dLDIABETES 126 mg/dL or higher Performed By: #### A CBC, BMPF, MG ####[place] [address] Potassium molar conc 3.7 mmol/L Normal 3.5-5.1 [facility] [facility] Comment on above: Performed By: #### A CBC, BMPF, MG ####[place] [address] Sodium 138 mmol/L Normal 137-145 [facility] Comment on above: Performed By: #### A CBC, BMPF, MG ####[place] [address] CBCon 07-01-2017 ABSOLUTE BAS 0.0 X10 Normal [facility] Comment on above: Result Comment: Test ing performed at [place] [address] Performed By: #### A URNC ####[place] [address] ABSOLUTE EOS 0.00 X10 Normal [facility] Comment on above: Performed By: #### A URNC ####[place] [address] Basophils/100 WBC Auto (Bld) 0.3 % Normal 0.0-2.0 [facility] Comment on above: Performed By: #### A URNC ####[place] [address] DTYPE AUTO DIFF Normal [facility] Comment on above: Performed By: #### A URNC ####[place] [address] Eosinophils/100 leukocytes 0.2 % Normal 0.0-11.0 [facility] Comment on above: Performed By: #### A URNC ####Testing performed at [address] [address] Lymphocytes 1.20 X10 Normal [facility] Comment on above: Performed By: #### A URNC ####Testing performed at [address] [address] Lymphocytes/100 leukocytes 13.1 % Low 20.0-55.0 [facility] Comment on above: Performed By: #### A URNC ####Testing performed at [address] [address] Monocytes 0.8 X10 Normal [facility] Comment on above: Performed By: #### A URNC ####Testing performed at [address] [address] Monocytes/100 leukocytes 9.4 % Normal 0.0-10.0 [facility] Comment on above: Performed By: #### A URNC ####Testing performed at [address] [address] Neutrophils 6.8 x10 Normal 1.0-7.0 [facility] Comment on above: Performed By: #### A URNC ####Testing performed at [address] [address] Neutrophils/100 leukocytes 77.0 % High 37.0-75.0 [facility] Comment on above: Performed By: #### A URNC ####Testing performed at [address] [address] Erythrocyte distribution width Auto Ratio (RBC) 14.1 % Normal 11.5-14.5 [facility] Comment on above: Performed By: #### A URNC ####Testing performed at [address] [address] Erythrocytes (RBC) 3.35 /cmm Low 4.0-5.4 [facility] Comment on above: Performed By: #### A URNC ####Testing performed at [address] [address] Hematocrit (HCT) 30.6 % Low 36.0-48.0 [facility] Comment on above: Performed By: #### A URNC ####[place] [address] Hemoglobin mass conc (Bld) 10.5 g/dL Low 12.0-16.0 [facility] Comment on above: Performed By: #### A URNC ####[place] [address] MCH 31.3 pg Normal 26.0-35.0 [facility] Comment on above: Performed By: #### A URNC ####[place] [address] MCHC mass conc (RBC) 34.3 g/dL Normal 27.0-37.0 [facility] Comment on above: Performed By: #### A URNC ####[place] [address] MCV 91.4 fL Normal 80.0-100.0 [facility] Comment on above: Performed By: #### A URNC ####[place] [address] Platelet mean volume (PMV) 10.0 fL Normal 7.4-11.0 [facility] Comment on above: Result Comment: Test ing performed at [place] [address] Performed By: #### A URNC ####[place] [address] Platelets 134 /cmm Normal 130.0-400.0 [facility] Comment on above: Performed By: #### A URNC ####[place] [address] WBC (Leukocytes) 8.9 /cmm Normal 3.6-13.0 [facility] Comment on above: Performed By: #### A URNC ####[place] [address] MAGNESIUMon 07-01-2017 Magnesium 1.5 mg/dL Low 1.6-2.3 [facility] Comment on above: Result Comment: Test ing performed at [place] [address] Performed By: #### A CBC, BMPF, MG ####[place] [address] NURSING NOTEon 07-01-2017 [facility] NOTES Normal [facility] NOT[facility] Normal [facility] NOT[facility] Normal [facility] NOT[facility] Normal [facility] NOT[facility] Normal [facility] Normal [facility] NOT[facility] Normal [facility] RAPID TOX SCREEN,URINE WITH REFLEXon 07-01-2017 AMPHETAMINE Negative Normal NEGATIVE [facility] Comment on above: Result Comment: <500 ng/ml CUTOFF Performed By: #### A URNC ####[place] [address] BARBITURATES Negative Normal NEGATIVE [facility] Comment on above: Result Comment: <200 ng/ml CUTOFF Performed By: #### A URNC ####[place] [address] BUPRENORPHINE Negative Normal NEGATIVE [facility] Comment on above: Result Comment: <10 ng/ml CUTOFFTesting performed at [place] [address] Performed By: #### A URNC ####[place] [address] METHAMPHETAMINE Negative Normal NEGATIVE [facility] Comment on above: Result Comment: <500 ng/ml CUTOFF Performed By: #### A URNC ####[place] [address] OXYCODONE Negative Normal NEGATIVE [facility] Comment on above: Result Comment: <100 ng/ml CUTOFF Performed By: #### A URNC ####[place] [address] PROPOXYPHENE Negative Normal NEGATIVE [facility] Comment on above: Result Comment: <300 ng/ml CUTOFF Performed By: #### A URNC ####[place] [address] Urine, benzodiazepines presence Negative Normal NEGATIVE [facility] Comment on above: Result Comment: <150 ng/ml CUTOFF Performed By: #### A URNC ####[place] [address] Urine, cannabinoids presence Negative Normal NEGATIVE [facility] Comment on above: Result Comment: <50 ng/ml CUTOFF Performed By: #### A URNC ####[place] [address] Urine, cocaine presence Negative Normal NEGATIVE [facility] Comment on above: Result Comment: <150 ng/ml CUTOFF Performed By: #### A URNC ####[place] [address] Urine, methadone presence Negative Normal NEGATIVE [facility] Comment on above: Result Comment: <200 ng/ml CUTOFF Performed By: #### A URNC ####[place] [address] Urine, opiates presence Negative Normal NEGATIVE [facility] Comment on above: Result Comment: <100 ng/ml CUTOFF Performed By: #### A URNC ####[place] [address] Urine, phencyclidine presence Negative Normal NEGATIVE [facility] Comment on above: Result Comment: <25 ng/ml CUTOFF Performed By: #### A URNC ####[place] [address] Urine, tricyclic antidepressants Negative Normal NEGATIVE [facility] Comment on above: Result Comment: <300 ng/ml CUTOFF Performed By: #### A URNC ####[place] [address] CBCon 06-19-2017 Basophils/100 WBC Auto (Bld) 0 % Normal 0.0-2.0 [facility] Comment on above: Performed By: #### U HCGT, UMAC, UMIC ####[place] [address] DTYPE AUTO DIFF Normal [facility] Comment on above: Result Comment: AUTO DIFF RESULTS VERIFIED BY SCAN Performed By: #### U HCGT, UMAC, UMIC ####[place] [address] Eosinophils/100 leukocytes 1 % Normal 0.0-11.0 [facility] Comment on above: Performed By: #### U HCGT, UMAC, UMIC ####[place] [address] Erythrocyte morphology NORMAL Normal [facility] Comment on above: Performed By: #### U HCGT, UMAC, UMIC ####[place] [address] Lymphocytes/100 leukocytes 20 % Normal 20.0-55.0 [facility] Comment on above: Performed By: #### U HCGT, UMAC, UMIC ####[place] [address] Monocytes/100 leukocytes 9 % Normal 0.0-10.0 [facility] Comment on above: Performed By: #### U HCGT, UMAC, UMIC ####[place] [address] Neutrophils/100 leukocytes 70 % Normal 37.0-75.0 [facility] Comment on above: Performed By: #### U HCGT, UMAC, UMIC ####[place] [address] PLATELET COMMENT GIANT PLTS Normal [facility] Comment on above: Result Comment: ADEQ UATETesting performed at [place] [address] Performed By: #### U HCGT, UMAC, UMIC ####[place] [address] Erythrocyte distribution width Auto Ratio (RBC) 14.3 % Normal 11.5-14.5 [facility] Comment on above: Performed By: #### U HCGT, UMAC, UMIC ####[place] [address] Erythrocytes (RBC) 3.80 /cmm Low 4.0-5.4 [facility] Comment on above: Performed By: #### U HCGT, UMAC, UMIC ####[place] [address] Hematocrit (HCT) 34.8 % Low 36.0-48.0 [facility] Comment on above: Performed By: #### U HCGT, UMAC, UMIC ####[place] [address] Hemoglobin mass conc (Bld) 12.0 g/dL Normal 12.0-16.0 [facility] Comment on above: Performed By: #### U HCGT, UMAC, UMIC ####[place] [address] MCH 31.5 pg Normal 26.0-35.0 [facility] Comment on above: Performed By: #### U HCGT, UMAC, UMIC ####[place] [address] MCHC mass conc (RBC) 34.4 g/dL Normal 27.0-37.0 [facility] Comment on above: Performed By: #### U HCGT, UMAC, UMIC ####[place] [address] MCV 91.4 fL Normal 80.0-100.0 [facility] Comment on above: Performed By: #### U HCGT, UMAC, UMIC ####[place] [address] Platelet mean volume (PMV) 10.2 fL Normal 7.4-11.0 [facility] Comment on above: Result Comment: Test ing performed at [place] [address] Performed By: #### U HCGT, UMAC, UMIC ####[place] [address] Platelets 155 /cmm Normal 130.0-400.0 [facility] Comment on above: Performed By: #### U HCGT, UMAC, UMIC ####[place] [address] WBC (Leukocytes) 7.5 /cmm Normal 3.6-13.0 [facility] Comment on above: Performed By: #### U HCGT, UMAC, UMIC ####[place] [address] PROGRESSon 06-19-2017 [facility] NOTES Normal [facility] CBCon 06-03-2017 ABSOLUTE BAS 0.0 X10 Normal [facility] Comment on above: Result Comment: Test ing performed at [place] [address] Performed By: #### U HCGT, UMAC, UMIC ####[place] [address] ABSOLUTE EOS 0.10 X10 Normal [facility] Comment on above: Performed By: #### U HCGT, UMAC, UMIC ####[place] [address] Basophils/100 WBC Auto (Bld) 0.3 % Normal 0.0-2.0 [facility] Comment on above: Performed By: #### U HCGT, UMAC, UMIC ####[place] [address] DTYPE AUTO DIFF Normal [facility] Comment on above: Performed By: #### U HCGT, UMAC, UMIC ####[place] [address] Eosinophils/100 leukocytes 1.3 % Normal 0.0-11.0 [facility] Comment on above: Performed By: #### U HCGT, UMAC, UMIC ####Testing performed at [address] [address] Lymphocytes 1.60 X10 Normal [facility] Comment on above: Performed By: #### U HCGT, UMAC, UMIC ####Testing performed at [address] [address] Lymphocytes/100 leukocytes 19.9 % Low 20.0-55.0 [facility] Comment on above: Performed By: #### U HCGT, UMAC, UMIC ####Testing performed at [address] [address] Monocytes 0.5 X10 Normal [facility] Comment on above: Performed By: #### U HCGT, UMAC, UMIC ####Testing performed at [address] [address] Monocytes/100 leukocytes 6.7 % Normal 0.0-10.0 [facility] Comment on above: Performed By: #### U HCGT, UMAC, UMIC ####Testing performed at [address] [address] Neutrophils 5.8 x10 Normal 1.0-7.0 [facility] Comment on above: Performed By: #### U HCGT, UMAC, UMIC ####Testing performed at [address] [address] Neutrophils/100 leukocytes 71.8 % Normal 37.0-75.0 [facility] Comment on above: Performed By: #### U HCGT, UMAC, UMIC ####Testing performed at [address] [address] Erythrocyte distribution width Auto Ratio (RBC) 13.7 % Normal 11.5-14.5 [facility] Comment on above: Performed By: #### U HCGT, UMAC, UMIC ####Testing performed at [address] [address] Erythrocytes (RBC) 3.45 /cmm Low 4.0-5.4 [facility] Comment on above: Performed By: #### U HCGT, UMAC, UMIC ####[place] [address] Hematocrit (HCT) 31.5 % Low 36.0-48.0 [facility] Comment on above: Performed By: #### U HCGT, UMAC, UMIC ####[place] [address] Hemoglobin mass conc (Bld) 10.7 g/dL Low 12.0-16.0 [facility] Comment on above: Performed By: #### U HCGT, UMAC, UMIC ####[place] [address] MCH 31.1 pg Normal 26.0-35.0 [facility] Comment on above: Performed By: #### U HCGT, UMAC, UMIC ####[place] [address] MCHC mass conc (RBC) 34.1 g/dL Normal 27.0-37.0 [facility] Comment on above: Performed By: #### U HCGT, UMAC, UMIC ####[place] [address] MCV 91.3 fL Normal 80.0-100.0 [facility] Comment on above: Performed By: #### U HCGT, UMAC, UMIC ####[place] [address] Platelet mean volume (PMV) 10.4 fL Normal 7.4-11.0 [facility] Comment on above: Performed By: #### U HCGT, UMAC, UMIC ####[place] [address] Platelets 149 /cmm Normal 130.0-400.0 [facility] Comment on above: Performed By: #### U HCGT, UMAC, UMIC ####[place] [address] WBC (Leukocytes) 8.1 /cmm Normal 3.6-13.0 [facility] Comment on above: Performed By: #### U HCGT, UMAC, UMIC ####[place] [address] GLUCOSE FASTINGon 06-03-2017 Glucose mass conc 125 mg/dL High 70-100 [facility] Comment on above: Result Comment: NORM AL <100 mg/dLPREDIABETES 101-126 mg/dLDIABETES 126 mg/dL or higherTesting performed at [place] [address] Performed By: #### U HCGT, UMAC, UMIC ####[place] [address] GLUCOSE POST LOADINGon 06-03 Glucose mass conc 123 mg/dL Normal 65-140 [facility] Comment on above: Result Comment: Test ing performed at [place] [address] Performed By: #### U HCGT, UMAC, UMIC ####[place] [address] PROGRESSon 06-03-2017 [facility] NOTES Normal [facility] NOT[facility] Normal [facility] Addendumon 05-01-2017 [facility] HIM CAC NOTES Normal [facility] PROGRESSon 05-01-2017 [facility] NOTES [facility] SENDOUT TESTon 04-15-2017 SENDOUT TEST SPECIMEN SENT TO REFERENCE LAB FOR TESTING [facility] Comment on above: Result Comment: [id number] AFPTesting performed at [place] [address] Performed By: #### U HCGT, UMAC, UMIC ####[place] [address] PROGRESSon 04-08-2017 [facility] NOTES Normal [facility] CBCon 03-11-2017 ABSOLUTE BAS 0.0 X10 [facility] Comment on above: Result Comment: Test ing performed at [place] [address] Performed By: #### U HCGT, UMAC, UMIC ####Testing performed at [address] [place] [address] ABSOLUTE EOS 0.00 X10 Normal [facility] Comment on above: Performed By: #### U HCGT, UMAC, UMIC ####Testing performed at [address] [address] Basophils/100 WBC Auto (Bld) 0.2 % Normal 0.0-2.0 [facility] Comment on above: Performed By: #### U HCGT, UMAC, UMIC ####Testing performed at [place] [id number] DTYPE AUTO DIFF Normal [facility] Comment on above: Performed By: #### U HCGT, UMAC, UMIC ####[place] [address] Eosinophils/100 leukocytes 0.1 % Normal 0.0-11.0 [facility] Comment on above: Performed By: #### U HCGT, UMAC, UMIC ####Testing performed at [place] [id number] Lymphocytes 0.50 X10 Normal [facility] Comment on above: Performed By: #### U HCGT, UMAC, UMIC ####Testing performed at [place] [id number] Lymphocytes/100 leukocytes 9.1 % Low 20.0-55.0 [facility] Comment on above: Performed By: #### U HCGT, UMAC, UMIC ####Testing performed at [place] [id number] Monocytes 0.4 X10 Normal [facility] Comment on above: Performed By: #### U HCGT, UMAC, UMIC ####Testing performed at [place] [id number] Monocytes/100 leukocytes 7.0 % Normal 0.0-10.0 [facility] Comment on above: Performed By: #### U HCGT, UMAC, UMIC ####Testing performed at [place] [id number] Neutrophils 4.8 x10 Normal 1.0-7.0 [facility] Comment on above: Performed By: #### U HCGT, UMAC, UMIC ####[place] [address] Neutrophils/100 leukocytes 83.6 % High 37.0-75.0 [facility] Comment on above: Performed By: #### U HCGT, UMAC, UMIC ####[place] [address] Erythrocyte distribution width Auto Ratio (RBC) 14.2 % Normal 11.5-14.5 [facility] Comment on above: Performed By: #### U HCGT, UMAC, UMIC ####[place] [address] Erythrocytes (RBC) 4.48 /cmm Normal 4.0-5.4 [facility] Comment on above: Performed By: #### U HCGT, UMAC, UMIC ####[place] [address] Hematocrit (HCT) 39.7 % Normal 36.0-48.0 [facility] Comment on above: Performed By: #### U HCGT, UMAC, UMIC ####[place] [address] Hemoglobin mass conc (Bld) 13.4 g/dL Normal 12.0-16.0 [facility] Comment on above: Performed By: #### U HCGT, UMAC, UMIC ####[place] [address] MCH 29.8 pg Normal 26.0-35.0 [facility] Comment on above: Performed By: #### U HCGT, UMAC, UMIC ####Testing performed at [place] [id number] MCHC mass conc (RBC) 33.7 g/dL Normal 27.0-37.0 [facility] Comment on above: Performed By: #### U HCGT, UMAC, UMIC ####[place] [address] MCV 88.5 fL Normal 80.0-100.0 [facility] Comment on above: Performed By: #### U HCGT, UMAC, UMIC ####[place] [address] Platelet mean volume (PMV) 9.9 fL Normal 7.4-11.0 [facility] Comment on above: Performed By: #### U HCGT, UMAC, UMIC ####[place] [address] Platelets 146 /cmm Normal 130.0-400.0 [facility] Comment on above: Performed By: #### U HCGT, UMAC, UMIC ####[place] [address] WBC (Leukocytes) 5.8 /cmm Normal 3.6-13.0 [facility] Comment on above: Performed By: #### U HCGT, UMAC, UMIC ####[place] [address] CMP FASTINGon 03-11-2017 A:G RATIO 1.3 RATIO Normal 1.3-2.2 [facility] Comment on above: Performed By: #### U HCGT, UMAC, UMIC ####[place] [address] Alanine aminotransferase (ALT) 46 U/L Normal 9-52 [facility] Comment on above: Performed By: #### U HCGT, UMAC, UMIC ####[place] [address] Albumin 4.1 G/dl Normal 3.7-5.6 [facility] Comment on above: Performed By: #### U HCGT, UMAC, UMIC ####[place] [address] Alkaline phosphatase (ALP) 64 U/L Low 70-230 [facility] Comment on above: Performed By: #### U HCGT, UMAC, UMIC ####[place] [address] Aspartate aminotransferase (AST) 26 U/L Normal 10-30 [facility] Comment on above: Performed By: #### U HCGT, UMAC, UMIC ####[place] [address] Bilirubin (total) 0.7 mg/dL Normal 0.2-1.3 [facility] Comment on above: Performed By: #### U HCGT, UMAC, UMIC ####[place] [address] BUN (urea nitrogen) 9 mg/dL Normal 7-20 [facility] Comment on above: Performed By: #### U HCGT, UMAC, UMIC ####[place] [address] Calcium 9.4 mg/dL Normal 9.2-10.7 [facility] Comment on above: Performed By: #### U HCGT, UMAC, UMIC ####[place] [address] Chloride 104 mmol/L Normal 98-107 [facility] Comment on above: Performed By: #### U HCGT, UMAC, UMIC ####[place] [address] CO2 21 mmol/L Low 22-30 [facility] Comment on above: Performed By: #### U HCGT, UMAC, UMIC ####[place] [address] Creatinine 0.6 mg/dL Normal 0.6-1.2 [facility] Comment on above: Performed By: #### U HCGT, UMAC, UMIC ####[place] [address] eGFR (non-black) Unable to calculate GFR due to inappropriate age/gender/creatinin e value. Normal [facility] Comment on above: Result Comment: Test ing performed at [place] [address] Performed By: #### U HCGT, UMAC, UMIC ####[place] [address] Glucose mass conc 80 mg/dL Normal 70-100 [facility] Comment on above: Result Comment: NORM AL <100 mg/dLPREDIABETES 101-126 mg/dLDIABETES 126 mg/dL or higher Performed By: #### U HCGT, UMAC, UMIC ####[place] [address] Potassium molar conc 3.7 mmol/L Normal 3.5-5.1 [facility] Comment on above: Performed By: #### U HCGT, UMAC, UMIC ####[place] [address] Protein 7.2 g/dL Normal 6.3-8.6 [facility] Comment on above: Performed By: #### U HCGT, UMAC, UMIC ####[place] [address] Sodium 138 mmol/L Normal 137-145 [facility] Comment on above: Performed By: #### U HCGT, UMAC, UMIC ####[place] [address] ED NOTEon 03-11-2017 [facility] NOTES Normal [facility] NOT[facility] Normal [facility] LIPASE,SERUMon 03-11-2017 LIPASE,SERUM 60 U/L Normal 23-300 [facility] Comment on above: Result Comment: Test ing performed at [place] [address] Performed By: #### U HCGT, UMAC, UMIC ####[place] [address] ED NOTEon 03-10-2017 [facility] NOTES Normal [facility] ED PROVIDERon 03-10-2017 [facility] NOTES Normal [facility] PROGRESSon 02-27-2017 [facility] NOTES Normal [facility] SENDOUT TESTon 02-27-2017 SENDOUT TEST SPECIMEN SENT TO REFERENCE LAB FOR TESTING Normal [facility] Comment on above: Result Comment: SENT TO OUTSIDE LAB NATERATesting performed at [place] [address] Performed By: #### U HCGT, UMAC, UMIC ####[place] [address] CHLAM/GC AMPLIFon 01-17-2017 CHLAMYDIA NUC. AMP Negative Normal Negative [facility] GONOCOCCUS NUC. AMP Negative Normal Negative [facility] Comment on above: Result Comment: PERF ORMED AT [facility] HBSAG SCREENon 01-16-2017 BSA (Body Surface Area) Negative Normal Negative [facility] Comment on above: Result Comment: [facility] Performed By: #### U HCGT, UMAC, UMIC ####[place] [address] RPRon 01-16-2017 Reagin antibody presence NONREACTIVE Normal NONREACTIVE [facility] Comment on above: Result Comment: Test ing performed at [place] [address] Performed By: #### U HCGT, UMAC, UMIC ####[place] [address] RUBELLA SCREENon 01-16-2017 RUBELLA SCREEN Positive Normal POSITIVE [facility] Comment on above: Result Comment: POSI TIVE RESULT INDICATES PRESUMED IMMUNITYTesting performed at [place] [address] Performed By: #### U HCGT, UMAC, UMIC ####[place] [address] ABO/RH(D)on 01-15-2017 ABO/RH(D) ABO/RH(D) A NEGATIVE Testing performed at [place] [address] Normal [facility] Comment on above: Performed By: #### U HCGT, UMAC, UMIC ####Testing performed at [address] [address] ANTIBODY SCREENon 01-15-2017 ANTIBODY SCREEN ANTIBODY SCREEN NEGATIVE WORKUP EXPIRES 01/18/2017 Testing performed at [address] Comment on above: Performed By: #### U HCGT, UMAC, UMIC ####[place] [address] CBCon 01-15-2017 ABSOLUTE BAS 0.0 X10 Normal [facility] Comment on above: Result Comment: Test ing performed at [place] [address] Performed By: #### A CBC, GHIV, RPR, RUBL ####[place] [address]#### LHBSAG ####Testing performed [address] [facility] [place] [address] ABSOLUTE EOS 0.00 X10 [facility] Comment on above: Performed By: #### A CBC, GHIV, RPR, RUBL ####[place] [address]#### LHBSAG ####Testing performed at [facility] [place] [address] Basophils/100 WBC Auto (Bld) 0.4 % Normal 0.0-2.0 [facility] Comment on above: Performed By: #### A CBC, GHIV, RPR, RUBL ####[place] [address]#### LHBSAG ####Testing performed at [facility] [place] [address] DTYPE AUTO DIFF Normal [facility] Comment on above: Performed By: #### A CBC, GHIV, RPR, RUBL ####[place] [address]#### LHBSAG ####Testing performed at [facility] [place] [address] Eosinophils/100 leukocytes 0.6 % Normal 0.0-11.0 [facility] Comment on above: Performed By: #### A CBC, GHIV, RPR, RUBL ####[place] [address]#### LHBSAG ####Testing performed at [facility] [place] [address] Lymphocytes 1.60 X10 Normal [facility] Comment on above: Performed By: #### A CBC, GHIV, RPR, RUBL ####[place] [address]#### LHBSAG ####Testing performed at [address] [place] [address] Lymphocytes/100 leukocytes 23.8 % Normal 20.0-55.0 [facility] Comment on above: Performed By: #### A CBC, GHIV, RPR, RUBL ####[place] [address]#### LHBSAG ####Testing performed at [address] [place] [address] Monocytes 0.5 X10 Normal [facility] Comment on above: Performed By: #### A CBC, GHIV, RPR, RUBL ####[place] [address]#### LHBSAG ####Testing performed at [address] [place] [address] Monocytes/100 leukocytes 7.1 % Normal 0.0-10.0 [facility] Comment on above: Performed By: #### A CBC, GHIV, RPR, RUBL ####[place] [address]#### LHBSAG ####Testing performed at [address] [place] [address] Neutrophils 4.6 x10 Normal 1.0-7.0 [facility] Comment on above: Performed By: #### A CBC, GHIV, RPR, RUBL ####[place] [address]#### LHBSAG ####Testing performed at [address] [place] [address] Neutrophils/100 leukocytes 68.1 % Normal 37.0-75.0 [facility] Comment on above: Performed By: #### A CBC, GHIV, RPR, RUBL ####[place] [address]#### LHBSAG ####Testing performed at [address] [place] [address] Erythrocyte distribution width Auto Ratio (RBC) 13.9 % Normal 11.5-14.5 [facility] Comment on above: Performed By: #### A CBC, GHIV, RPR, RUBL ####[place] [address]#### LHBSAG ####Testing performed at [address] [place] [address] Erythrocytes (RBC) 4.69 /cmm Normal 4.0-5.4 [facility] Comment on above: Performed By: #### A CBC, GHIV, RPR, RUBL ####[place] [address]#### LHBSAG ####Testing performed at [address] [place] [address] Hematocrit (HCT) 42.0 % Normal 36.0-48.0 [facility] Comment on above: Performed By: #### A CBC, GHIV, RPR, RUBL ####Testing performed at [address] [address]#### LHBSAG ####Testing performed at [address] [place] [address] Hemoglobin mass conc (Bld) 14.1 g/dL Normal 12.0-16.0 [facility] Comment on above: Performed By: #### A CBC, GHIV, RPR, RUBL ####[place] [address]#### LHBSAG ####Testing performed at [address] [place] [address] MCH 30.0 pg Normal 26.0-35.0 [facility] Comment on above: Performed By: #### A CBC, GHIV, RPR, RUBL ####[place] [address]#### LHBSAG ####Testing performed at [address] [place] [address] MCHC mass conc (RBC) 33.5 g/dL Normal 27.0-37.0 [facility] Comment on above: Performed By: #### A CBC, GHIV, RPR, RUBL ####[place] [address]#### LHBSAG ####Testing performed at [address] [address] MCV 89.6 fL Normal 80.0-100.0 [facility] Comment on above: Performed By: #### A CBC, GHIV, RPR, RUBL ####[place] [address]#### LHBSAG ####Testing performed at [address] [address] Platelet mean volume (PMV) 10.6 fL Normal 7.4-11.0 [facility] Comment on above: Performed By: #### A CBC, GHIV, RPR, RUBL ####[place] [address]#### LHBSAG ####Testing performed at [address] [place] [address] Platelets 189 /cmm Normal 130.0-400.0 [facility] Comment on above: Performed By: #### A CBC, GHIV, RPR, RUBL ####[place] [address]#### LHBSAG ####Testing performed at [address] [place] [address] WBC (Leukocytes) 6.8 /cmm Normal 3.6-13.0 [facility] Comment on above: Performed By: #### A CBC, GHIV, RPR, RUBL ####[place] [address]#### LHBSAG ####Testing performed at [address] [place] [address] HIV 1,2 ABon 01-15-2017 HIV 1,2 NONREACTIVE Normal NONREACTIVE [facility] Comment on above: Result Comment: Test ing performed at [place] [address] Performed By: #### A CBC, GHIV, RPR, RUBL ####[place] [address]#### LHBSAG ####Testing performed at [address] [place] [address] PROGRESSon 01-15-2017 [facility] NOTES Normal [facility] RAPID TOX SCREEN,URINE WITH REFLEXon 01-15-2017 AMPHETAMINE Negative Normal NEGATIVE [facility] Comment on above: Result Comment: <500 ng/ml CUTOFF Performed By: #### U HCGT, UMAC, UMIC ####Testing performed at [place] [id number] BARBITURATES Negative Normal NEGATIVE [facility] Comment on above: Result Comment: <200 ng/ml CUTOFF Performed By: #### U HCGT, UMAC, UMIC ####[place] [address] BUPRENORPHINE Negative Normal NEGATIVE [facility] Comment on above: Result Comment: <10 ng/ml CUTOFFTesting performed at [place] [address] Performed By: #### U HCGT, UMAC, UMIC ####[place] [address] METHAMPHETAMINE Negative Normal NEGATIVE [facility] Comment on above: Result Comment: <500 ng/ml CUTOFF Performed By: #### U HCGT, UMAC, UMIC ####[place] [address] OXYCODONE Negative Normal NEGATIVE [facility] Comment on above: Result Comment: <100 ng/ml CUTOFF Performed By: #### U HCGT, UMAC, UMIC ####[place] [address] PROPOXYPHENE Negative Normal NEGATIVE [facility] Comment on above: Result Comment: <300 ng/ml CUTOFF Performed By: #### U HCGT, UMAC, UMIC ####[place] [address] Urine, benzodiazepines presence Negative Normal NEGATIVE [facility] Comment on above: Result Comment: <150 ng/ml CUTOFF Performed By: #### U HCGT, UMAC, UMIC ####[place] [address] Urine, cannabinoids presence Negative Normal NEGATIVE [facility] Comment on above: Result Comment: <50 ng/ml CUTOFF Performed By: #### U HCGT, UMAC, UMIC ####[place] [address] Urine, cocaine presence Negative Normal NEGATIVE [facility] Comment on above: Result Comment: <150 ng/ml CUTOFF Performed By: #### U HCGT, UMAC, UMIC ####[place] [address] Urine, methadone presence Negative Normal NEGATIVE [facility] Comment on above: Result Comment: <200 ng/ml CUTOFF Performed By: #### U HCGT, UMAC, UMIC ####[place] [address] Urine, opiates presence Negative Normal NEGATIVE [facility] Comment on above: Result Comment: <100 ng/ml CUTOFF Performed By: #### U HCGT, UMAC, UMIC ####[place] [address] Urine, phencyclidine presence Negative Normal NEGATIVE [facility] Comment on above: Result Comment: <25 ng/ml CUTOFF Performed By: #### U HCGT, UMAC, UMIC ####[place] [address] Urine, tricyclic antidepressants Negative Normal NEGATIVE [facility] Comment on above: Result Comment: <300 ng/ml CUTOFF Performed By: #### U HCGT, UMAC, UMIC ####[place] [address] URINE CULTUREon 01-15-2017 Urine culture, bacteria SPECIMEN DESCRIP TION URINE CLEAN CATCHUA DIPSTICK LEUKOCYTE NEGATIVE * Result Note: NITRITE NEGATIVE *CULTURE NO GROWTH 2 DAYS * Result Note: Testing performed at [place] [address] *REPORT STATUS 01/17/2017 * Result Note: FINAL * Normal [facility] Comment on above: Performed By: #### U HCGT, UMAC, UMIC ####[place] [address] ED NOTEon 12-31-2016 [facility] NOTES Normal [facility] ED PROVIDERon 12-30-2016 [facility] NOTES Normal [facility] URINE CULTUREon 12-30-2016 Urine culture, bacteria SPECIMEN DESCRIP TION URINE - OTHERUA DIPSTICK LEUKOCYTE POSITIVE * Result Note: NITRITE NEGATIVE *CULTURE NO PATHOGENS ISOLATED * Result Note: Testing performed at [place] [address] *REPORT STATUS 01/01/2017 * Result Note: FINAL * Normal [facility] Comment on above: Performed By: #### A URNC ####[place] [address] URINE HCG QUALon 12-30-2016 HCG.beta subunit ( test) Ql (U) Positive Normal [facility] Comment on above: Result Comment: Test ing performed at [place] [address] Performed By: #### U HCGT, UMAC, UMIC ####[place] [address] URINE MACROSCOPICon 12-31-19 Bilirubin Ql (U) Negative Normal NEGATIVE [facility] Comment on above: Performed By: #### U HCGT, UMAC, UMIC ####[place] [address] URINE HEMOGLOBIN Negative Normal NEGATIVE [facility] Comment on above: Performed By: #### U HCGT, UMAC, UMIC ####[place] [address] URINE KETONE TRACE Abnormal NEGATIVE [facility] Comment on above: Performed By: #### U HCGT, UMAC, UMIC ####[place] [address] URINE LEUKOTEST TRACE Abnormal NEGATIVE [facility] Comment on above: Result Comment: Test ing performed at [place] [address] Performed By: #### U HCGT, UMAC, UMIC ####[place] [address] URINE NITRATES Negative Normal NEGATIVE [facility] Comment on above: Performed By: #### U HCGT, UMAC, UMIC ####[place] [address] URINE SPEC GRAVITY 1.025 Normal 1.010-1.025 [facility] Comment on above: Performed By: #### U HCGT, UMAC, UMIC ####[place] [address] URINE TOTAL PROTEIN Negative Normal NEGATIVE [facility] Comment on above: Performed By: #### U HCGT, UMAC, UMIC ####[place] [address] Urine, clarity CLEAR Normal CLEAR [facility] Comment on above: Performed By: #### U HCGT, UMAC, UMIC ####Testing performed at [place] [id number] Urine, color YELLOW Normal YELLOW [facility] Comment on above: Performed By: #### U HCGT, UMAC, UMIC ####[place] [address] Urine, glucose presence Negative Normal NEGATIVE [facility] Comment on above: Performed By: #### U HCGT, UMAC, UMIC ####[place] [address] Urine, pH 5.5 [pH] Normal 5.0-7.0 [facility] Comment on above: Performed By: #### U HCGT, UMAC, UMIC ####[place] [address] Urine, urobilinogen 0.2 mg/dl Normal 0.2-1.0 [facility] Comment on above: Performed By: #### U HCGT, UMAC, UMIC ####[place] [address] URINE MICROSCOPICon 12-31-19 17 CRYSTAL NONE Normal NONE [facility] Comment on above: Performed By: #### U HCGT, UMAC, UMIC ####[place] [address] URINE COMMENT REFLEX CULTURE PER ESTABLISHED CRITERIA. Normal [facility] Comment on above: Result Comment: Test ing performed at [place] [address] Performed By: #### U HCGT, UMAC, UMIC ####[place] [address] URINE WBC'S 1 TO 5 Normal NEGATIVE [facility] Comment on above: Performed By: #### U HCGT, UMAC, UMIC ####[place] [address] Urine, bacteria in sediment 1+ Abnormal NEGATIVE [facility] Comment on above: Performed By: #### U HCGT, UMAC, UMIC ####Testing performed at [address] [address] Urine, casts in sediment NONE Normal NONE [facility] Comment on above: Performed By: #### U HCGT, UMAC, UMIC ####[place] [address] Urine, epithelial cells in sediment 1 TO 5 Normal [facility] Comment on above: Performed By: #### U HCGT, UMAC, UMIC ####Testing performed at [address] [address] Urine, erythrocytes Negative Normal NEGATIVE [facility] Comment on above: Performed By: #### U HCGT, UMAC, UMIC ####[place] [address] Urine, mucus presence in sediment Negative Normal NEGATIVE [facility] Comment on above: Performed By: #### U HCGT, UMAC, UMIC ####Testing performed at [address] [address] ED NOTEon 09-13-2016 [facility] NOTES Normal [facility] Vital Signs Date Time Vital Sign Value Performing Clinician Facility 09-28-2024 11:16-0400 Body mass index (BMI) [Ratio] 35.07 kg/m2 Jaquelin Hi APRN.CNM Work Phone: [facility] 09-28-2024 11:16-0400 Body weight 89.81 kg Jaquelin Hi APRN.CNM Work Phone: [facility] 09-28-2024 11:16-0400 Diastolic blood pressure 80 mm[Hg] Jaquelin Hi APRN.CNM Work Phone: [facility] 09-28-2024 11:16-0400 Systolic blood pressure 120 mm[Hg] Jaquelin iH APRN.CNM Work Phone: [facility] 2024 10:47-0400 Body mass index (BMI) [Ratio] 34.37 kg/m2 Yamila Ballard MD Work Phone: [facility] 2024 10:47-0400 Body weight 88 kg Yamila Ballard MD Work Phone: [facility] 2024 10:47-0400 Diastolic blood pressure 74 mm[Hg] Yamila Ballard MD Work Phone: [facility] 2024 10:47-0400 Systolic blood pressure 108 mm[Hg] Yamila Ballard MD Work Phone: [facility] 09-19-2024 12:56-0400 Body temperature 98.1 [degF] Rachell Queden BIOMETRICS SPECIALIST-C Work Phone: [facility] 09-19-2024 12:55-0400 Respiratory rate 16 /min Rachell Queden BIOMETRICS SPECIALIST-C Work Phone: [facility] 09-19-2024 12:54-0400 Diastolic blood pressure 75 mm[Hg] Rachell Queden BIOMETRICS SPECIALIST-C Work Phone: [facility] 09-19-2024 12:54-0400 Heart rate 93 /min Rachell Queden BIOMETRICS SPECIALIST-C Work Phone: [facility] 09-19-2024 12:54-0400 Systolic blood pressure 130 mm[Hg] Rachell Queden BIOMETRICS SPECIALIST-C Work Phone: [facility] 09-19-2024 12:43-0400 Body height 160.02 cm Rachell Queden BIOMETRICS SPECIALIST-C Work Phone: [facility] 09-19-2024 12:43-0400 Body mass index (BMI) [Ratio] 34 kg/m2 Rachell Queden BIOMETRICS SPECIALIST-C Work Phone: [facility] 09-19-2024 12:43-0400 Body weight 87 kg Rachell Queden BIOMETRICS SPECIALIST-C Work Phone: [facility] 09-09-2024 22:20-0400 Body temperature 98.71 [degF] Rio Kelly DO Work Phone: [facility] 09-09-2024 22:20-0400 Diastolic blood pressure 78 mm[Hg] Rio Kelly DO Work Phone: [facility] 09-09-2024 22:20-0400 Heart rate 81 /min Rio Kelly DO Work Phone: [facility] 09-09-2024 22:20-0400 Respiratory rate 16 /min Rio Kelly DO Work Phone: [facility] 09-09-2024 22:20-0400 Systolic blood pressure 124 mm[Hg] Rio Kelly DO Work Phone: [facility] 09-09-2024 19:44-0400 Body height 160 cm Rio Kelly DO Work Phone: [facility] 09-09-2024 19:44-0400 Body mass index (BMI) [Ratio] 34.03 kg/m2 Rio Kelly DO Work Phone: [facility] 09-09-2024 19:44-0400 Body weight 87.14 kg Rio Kelly DO Work Phone: [facility] 09-09-2024 19:44-0400 SaO2% (BldA) [Mass fraction] 96 % Rio Kelly DO Work Phone: [facility] 09-09-2024 11:48-0400 Diastolic blood pressure 71 mm[Hg] Rachell Queden BIOMETRICS SPECIALIST-C Work Phone: [facility] 09-09-2024 11:48-0400 Heart rate 85 /min Rachell Queden BIOMETRICS SPECIALIST-C Work Phone: [facility] 09-09-2024 11:48-0400 Systolic blood pressure 123 mm[Hg] Rachell Queden BIOMETRICS SPECIALIST-C Work Phone: [facility] 09-09-2024 11:46-0400 Body temperature 97.3 [degF] Rachell Queden BIOMETRICS SPECIALIST-C Work Phone: [facility] 09-09-2024 11:46-0400 Respiratory rate 16 /min Rachell Queden BIOMETRICS SPECIALIST-C Work Phone: [facility] 09-09-2024 11:46-0400 SaO2% (BldA) [Mass fraction] 96 % Rachell Queden BIOMETRICS SPECIALIST-C Work Phone: [facility] 09-09-2024 11:20-0400 Body height 160.02 cm Rachell Queden BIOMETRICS SPECIALIST-C Work Phone: [facility] 09-09-2024 11:20-0400 Body mass index (BMI) [Ratio] 33.7 kg/m2 Rachell Queden BIOMETRICS SPECIALIST-C Work Phone: [facility] 09-09-2024 11:20-0400 Body weight 86.5 kg Rachell Queden BIOMETRICS SPECIALIST-C Work Phone: [facility] 09-08-2024 09:58-0400 Body mass index (BMI) [Ratio] 33.66 kg/m2 Gino Valero BOND TRADER.CNM Work Phone: [facility] 09-08-2024 09:58-0400 Body weight 86.18 kg Gino Valero BOND TRADER.CNM Work Phone: [facility] 09-08-2024 09:58-0400 Diastolic blood pressure 77 mm[Hg] Gino Valero BOND TRADER.CNM Work Phone: [facility] Comment on above: BP machine 09-08-2024 09:58-0400 Systolic blood pressure 119 mm[Hg] Gino Valero BOND TRADER.CNM Work Phone: [facility] Comment on above: BP machine 09-08-2024 00:42-0400 Heart rate 87 /min Rachell Queden BIOMETRICS SPECIALIST-C Work Phone: [facility] 09-08-2024 00:42-0400 SaO2% (BldA) [Mass fraction] 96 % Rachell Queden BIOMETRICS SPECIALIST-C Work Phone: [facility] 09-08-2024 00:17-0400 Body height 160.02 cm Rachell Queden BIOMETRICS SPECIALIST-C Work Phone: [facility] 09-08-2024 00:17-0400 Body mass index (BMI) [Ratio] 33.9 kg/m2 Rachell Queden BIOMETRICS SPECIALIST-C Work Phone: [facility] 09-08-2024 00:17-0400 Body weight 86.9 kg Rachell Queden BIOMETRICS SPECIALIST-C Work Phone: [facility] 09-07-2024 23:10-0400 Body temperature 97.9 [degF] Rachell Queden BIOMETRICS SPECIALIST-C Work Phone: [facility] 09-07-2024 23:10-0400 Respiratory rate 16 /min Rachell Queden BIOMETRICS SPECIALIST-C Work Phone: [facility] 09-07-2024 23:07-0400 Diastolic blood pressure 67 mm[Hg] Rachell Queden BIOMETRICS SPECIALIST-C Work Phone: [facility] 09-07-2024 23:07-0400 Systolic blood pressure 120 mm[Hg] Rachell Queden BIOMETRICS SPECIALIST-C Work Phone: [facility] 09-07-2024 14:54-0400 Body mass index (BMI) [Ratio] 33.3 kg/m2 Yamila Ballard MD Work Phone: [facility] 09-07-2024 14:54-0400 Body weight 85.28 kg Yamila Ballard MD Work Phone: [facility] 09-07-2024 14:54-0400 Diastolic blood pressure 66 mm[Hg] Yamila Ballard MD Work Phone: [facility] 09-07-2024 14:54-0400 Systolic blood pressure 110 mm[Hg] Yamila Ballard MD Work Phone: [facility] 08-24-2024 14:31-0400 Diastolic blood pressure 63 mm[Hg] Treatment [address] [facility] 08-24-2024 14:31-0400 Heart rate 83 /min Treatment [address] [facility] 08-24-2024 14:31-0400 Respiratory rate 16 /min Treatment 2 [facility] 08-24-2024 14:31-0400 SaO2% (BldA) [Mass fraction] 100 % Treatment [address] [facility] 08-24-2024 14:31-0400 Systolic blood pressure 105 mm[Hg] Treatment [address] [facility] 08-24-2024 13:46-0400 Body temperature 98.71 [degF] Treatment 2 [facility] 08-24-2024 10:45-0400 Body mass index (BMI) [Ratio] 32.24 kg/m2 Prabhu Ortez MD Work Phone: [facility] 08-24-2024 10:45-0400 Body weight 82.56 kg Prabhu Ortez MD Work Phone: [facility] 08-24-2024 10:45-0400 Diastolic blood pressure 60 mm[Hg] Prabhu Ortez MD Work Phone: [facility] 08-24-2024 10:45-0400 Systolic blood pressure 110 mm[Hg] Prabhu Ortez MD Work Phone: [facility] 08-20-2024 15:21-0400 Diastolic blood pressure 71 mm[Hg] Treatment [address] [facility] 08-20-2024 15:21-0400 Heart rate 89 /min Treatment [address] [facility] 08-20-2024 15:21-0400 Respiratory rate 18 /min Treatment 2 [facility] 08-20-2024 15:21-0400 SaO2% (BldA) [Mass fraction] 98 % Treatment [address] [facility] 08-20-2024 15:21-0400 Systolic blood pressure 107 mm[Hg] Treatment [address] [facility] 08-17-2024 15:15-0400 Body temperature 98.01 [degF] Treatment 1 [facility] 08-17-2024 15:15-0400 Diastolic blood pressure 67 mm[Hg] Treatment [address] [facility] 08-17-2024 15:15-0400 Heart rate 95 /min Treatment [address] [facility] 08-17-2024 15:15-0400 Respiratory rate 16 /min Treatment 1 [facility] 08-17-2024 15:15-0400 SaO2% (BldA) [Mass fraction] 96 % Treatment [address] [facility] 08-17-2024 15:15-0400 Systolic blood pressure 117 mm[Hg] Treatment [address] [facility] 08-12-2024 15:13-0400 Diastolic blood pressure 62 mm[Hg] Treatment [address] [facility] 08-12-2024 15:13-0400 Heart rate 82 /min Treatment [address] [facility] 08-12-2024 15:13-0400 Respiratory rate 16 /min Treatment 2 [facility] 08-12-2024 15:13-0400 SaO2% (BldA) [Mass fraction] 100 % Treatment [address] [facility] 08-12-2024 15:13-0400 Systolic blood pressure 101 mm[Hg] Treatment [address] [facility] 08-12-2024 14:31-0400 Body temperature 98.01 [degF] Treatment 2 [facility] 08-10-2024 11:27-0400 Body mass index (BMI) [Ratio] 31.53 kg/m2 Prabhu Ortez MD Work Phone: [facility] 08-10-2024 11:27-0400 Body weight 80.74 kg Prabhu Ortez MD Work Phone: [facility] 08-10-2024 11:27-0400 Diastolic blood pressure 60 mm[Hg] Prabhu Ortez MD Work Phone: [facility] 08-10-2024 11:27-0400 Systolic blood pressure 112 mm[Hg] Prabhu Ortez MD Work Phone: [facility] 08-03-2024 15:49-0400 Diastolic blood pressure 61 mm[Hg] Rachell Amador BIOMETRICS SPECIALIST-C Work Phone: [facility] 08-03-2024 15:49-0400 Heart rate 85 /min Rachell Amador BIOMETRICS SPECIALIST-C Work Phone: [facility] 08-03-2024 15:49-0400 Systolic blood pressure 109 mm[Hg] Rachell Queden BIOMETRICS SPECIALIST-C Work Phone: [facility] 08-03-2024 13:42-0400 Body height 160.02 cm Rachell Queden BIOMETRICS SPECIALIST-C Work Phone: [facility] 08-03-2024 13:42-0400 Body mass index (BMI) [Ratio] 31.3 kg/m2 Rachell Queden BIOMETRICS SPECIALIST-C Work Phone: [facility] 08-03-2024 13:42-0400 Body weight 80.19 kg Rachell Queden BIOMETRICS SPECIALIST-C Work Phone: [facility] 08-03-2024 13:36-0400 Body temperature 98.1 [degF] Rachell Queden BIOMETRICS SPECIALIST-C Work Phone: [facility] 08-03-2024 13:36-0400 Respiratory rate 14 /min Rachell Queden BIOMETRICS SPECIALIST-C Work Phone: [facility] 08-03-2024 13:36-0400 SaO2% (BldA) [Mass fraction] 100 % Rachell Queden BIOMETRICS SPECIALIST-C Work Phone: [facility] 08-03-2024 11:55-0400 Body height 160 cm Ramiro Hugo MD Work Phone: [facility] 08-03-2024 11:55-0400 Body mass index (BMI) [Ratio] 31.18 kg/m2 Ramiro Hugo MD Work Phone: [facility] 08-03-2024 11:55-0400 Body weight 79.83 kg Ramiro Hugo MD Work Phone: [facility] 08-03-2024 11:55-0400 Diastolic blood pressure 70 mm[Hg] Ramiro Hugo MD Work Phone: [facility] 08-03-2024 11:55-0400 Heart rate 92 /min Ramiro Hugo MD Work Phone: [facility] 08-03-2024 11:55-0400 SaO2% (BldA) [Mass fraction] 98 % Ramiro Hugo MD Work Phone: [facility] 08-03-2024 11:55-0400 Systolic blood pressure 104 mm[Hg] Ramiro Hugo MD Work Phone: [facility] 07-27-2024 13:21-0400 Body mass index (BMI) [Ratio] 31.11 kg/m2 Yamila Ballard MD Work Phone: [facility] 07-27-2024 13:21-0400 Body weight 79.65 kg Yamila Ballard MD Work Phone: [facility] 07-27-2024 13:21-0400 Diastolic blood pressure 66 mm[Hg] Yamila Ballard MD Work Phone: [facility] 07-27-2024 13:21-0400 Systolic blood pressure 118 mm[Hg] Yamila Ballard MD Work Phone: [facility] 06-01-2024 09:46-0400 Body mass index (BMI) [Ratio] 26.22 kg/m2 Jaquelin Hi APRN.CNM Work Phone: [facility] 06-01-2024 09:46-0400 Body weight 67.13 kg Jaquelin Hi APRN.CNM Work Phone: [facility] 06-01-2024 09:46-0400 Diastolic blood pressure 60 mm[Hg] Jaquelin Hi APRN.CNLilly Work Phone: [facility] 06-01-2024 09:46-0400 Systolic blood pressure 106 mm[Hg] Jaquelin Hi APRN.CNLilly Work Phone: [facility] 05-04-2024 14:30-0400 Body mass index (BMI) [Ratio] 24.27 kg/m2 Jaquelin Hi APRN.CNM Work Phone: [facility] 05-04-2024 14:30-0400 Body weight 62.14 kg Jaquelin Hi BOND TRADER.CNM Work Phone: [facility] 05-04-2024 14:30-0400 Diastolic blood pressure 60 mm[Hg] Jaquelin Hi BOND TRADER.CNM Work Phone: [facility] 05-04-2024 14:30-0400 Systolic blood pressure 108 mm[Hg] Jaquelin Hi BOND TRADER.CNM Work Phone: [facility] 04-07-2024 14:47-0500 Body mass index (BMI) [Ratio] 23.03 kg/m2 Jaquelin Hi BOND TRADER.CNM Work Phone: [facility] 04-07-2024 14:47-0500 Body weight 58.97 kg Jaquelin Hi BOND TRADER.CNM Work Phone: [facility] 04-07-2024 14:47-0500 Diastolic blood pressure 62 mm[Hg] Jaquelin Hi BOND TRADER.CNM Work Phone: [facility] 04-07-2024 14:47-0500 Systolic blood pressure 116 mm[Hg] Jaquelin Hi BOND TRADER.CNM Work Phone: [facility] 03-09-2024 13:14-0500 Body height 160 cm Jaquelin Hi BOND TRADER.CNM Work Phone: [facility] 03-09-2024 13:14-0500 Body mass index (BMI) [Ratio] 23.03 kg/m2 Jaquelin Hi BOND TRADER.CNM Work Phone: [facility] 03-09-2024 13:14-0500 Body weight 58.97 kg Jaquelin Hi BOND TRADER.CNM Work Phone: [facility] 03-09-2024 13:14-0500 Diastolic blood pressure 64 mm[Hg] Jaquelin Hi BOND TRADER.CNM Work Phone: [facility] 03-09-2024 13:14-0500 Systolic blood pressure 108 mm[Hg] Jaquelin Hi NOA.CNM Work Phone: [facility] 02-18-2024 14:40-0500 Diastolic blood pressure 87 mm[Hg] Rachell Jackden BOND TRADER-BLOOD TESTER FOWL Work Phone: [facility] 02-18-2024 14:40-0500 Heart rate 65 /min Rachell Gueroden BOND TRADER-BLOOD TESTER [employer]OWL Work Phone: [facility] 02-18-2024 14:40-0500 Respiratory rate 20 /min Rachell Queden BOND TRADER-BLOOD TESTER [employer]OWL Work Phone: [facility] 02-18-2024 14:40-0500 SaO2% (BldA) [Mass fraction] 100 % Rachell Queden BOND TRADER-BLOOD TESTER [employer]OWL Work Phone: [facility] 02-18-2024 14:40-0500 Systolic blood pressure 104 mm[Hg] Rachell Queden BOND TRADER-BLOOD TESTER [employer]L Work Phone: [facility] 02-18-2024 10:54-0500 Body height 160 cm Rachell Queden BOND TRADER-BLOOD TESTER [employer]OWL Work Phone: [facility] 02-18-2024 10:54-0500 Body mass index (BMI) [Ratio] 24.09 kg/m2 Rachell Gueroden BOND TRADER-BLOOD TESTER [employer]L Work Phone: [facility] 02-18-2024 10:54-0500 Body temperature 98.1 [degF] Rachell Queden BOND TRADER-BLOOD TESTER [employer]OWL Work Phone: [facility] 02-18-2024 10:54-0500 Body weight 61.69 kg Rachell Queden BOND TRADER-BLOOD TESTER [employer]L Work Phone: [facility] 01-27-2024 09:38-0500 Body mass index (BMI) [Ratio] 23.21 kg/m2 Ramiro Hugo MD Work Phone: [facility] 01-27-2024 09:38-0500 Body weight 59.42 kg Ramiro Hugo MD Work Phone: [facility] 01-27-2024 09:38-0500 Diastolic blood pressure 74 mm[Hg] Ramiro Hugo MD Work Phone: [facility] 01-27-2024 09:38-0500 Heart rate 68 /min Ramiro Hugo MD Work Phone: [facility] 01-27-2024 09:38-0500 Respiratory rate 16 /min Ramiro Hugo MD Work Phone: [facility] 01-27-2024 09:38-0500 SaO2% (BldA) [Mass fraction] 94 % Ramiro Hugo MD Work Phone: [facility] 01-27-2024 09:38-0500 Systolic blood pressure 122 mm[Hg] Ramiro Hugo MD Work Phone: [facility] 12-26-2023 10:08-0500 Body height 160 cm Rachell Queden BOND TRADER.BLOOD TESTER [employer]OWL Work Phone: [facility] 12-26-2023 10:08-0500 Body mass index (BMI) [Ratio] 21.97 kg/m2 Rachell Queden BOND TRADER.BLOOD TESTER [employer]OWL Work Phone: [facility] 12-26-2023 10:08-0500 Body temperature 98.01 [degF] Rachell Queden BOND TRADER.BLOOD TESTER [employer]OWL Work Phone: [facility] 12-26-2023 10:08-0500 Body weight 56.25 kg Rachell Queden BOND TRADER.BLOOD TESTER [employer]OWL Work Phone: [facility] 12-26-2023 10:08-0500 Diastolic blood pressure 62 mm[Hg] Rachell Queden BOND TRADER.BLOOD TESTER [employer]OWL Work Phone: [facility] 12-26-2023 10:08-0500 Heart rate 52 /min Rachell Queden BOND TRADER.BLOOD TESTER [employer]OWL Work Phone: [facility] 12-26-2023 10:08-0500 Respiratory rate 16 /min Rachell Queden BOND TRADER.BLOOD TESTER [employer]OWL Work Phone: [facility] 12-26-2023 10:08-0500 SaO2% (BldA) [Mass fraction] 100 % Rachell Queden BOND TRADER.BLOOD TESTER [employer]OWL Work Phone: [facility] 12-26-2023 10:08-0500 Systolic blood pressure 122 mm[Hg] Rachell Queden BOND TRADER.BLOOD TESTER [employer]OWL Work Phone: [facility] 12-10-2023 13:20-0400 Body height 160 cm Norbert Noriega MD Work Phone: [facility] 12-10-2023 13:20-0400 Body mass index (BMI) [Ratio] 21.15 kg/m2 Norbert Noriega MD Work Phone: [facility] 12-10-2023 13:20-0400 Body weight 54.16 kg Norbert Noriega MD Work Phone: [facility] 12-10-2023 13:20-0400 Diastolic blood pressure 60 mm[Hg] Norbert Noriega MD Work Phone: [facility] 12-10-2023 13:20-0400 Heart rate 73 /min Norbert Noriega MD Work Phone: [facility] 12-10-2023 13:20-0400 SaO2% (BldA) [Mass fraction] 97 % Norbert Noriega MD Work Phone: [facility] 12-10-2023 13:20-0400 Systolic blood pressure 92 mm[Hg] Norbert Noriega MD Work Phone: [facility] 11-24-2023 12:45-0400 Body mass index (BMI) [Ratio] 21.26 kg/m2 Sandra Kelsey BOND TRADER.BLOOD TESTER FOWL Work Phone: [facility] 11-24-2023 12:45-0400 Body weight 54.43 kg Sandra Rainier BOND TRADER.BLOOD TESTER [employer]OWL Work Phone: [facility] 11-24-2023 12:45-0400 Diastolic blood pressure 64 mm[Hg] Sandra Rainier BOND TRADER.BLOOD TESTER [employer]OWL Work Phone: [facility] 11-24-2023 12:45-0400 Systolic blood pressure 118 mm[Hg] Sandra Kelsey BOND TRADER.BLOOD TESTER [employer]OWL Work Phone: [facility] 10-03-2023 13:15-0400 SaO2% (BldA) [Mass fraction] 97 % Ramiro Hugo MD Work Phone: [facility] 10-03-2023 12:45-0400 Diastolic blood pressure 58 mm[Hg] Ramiro Hugo MD Work Phone: [facility] 10-03-2023 12:45-0400 Heart rate 68 /min Ramiro Hugo MD Work Phone: [facility] 10-03-2023 12:45-0400 Respiratory rate 16 /min Ramiro Hugo MD Work Phone: [facility] 10-03-2023 12:45-0400 Systolic blood pressure 112 mm[Hg] Ramiro Hugo MD Work Phone: [facility] 10-03-2023 11:47-0400 Body temperature 97.5 [degF] Ramiro Hugo MD Work Phone: [facility] 10-03-2023 06:57-0400 Body height 160 cm Ramiro Hugo MD Work Phone: [facility] 10-03-2023 06:57-0400 Body mass index (BMI) [Ratio] 20.39 kg/m2 Ramiro Hugo MD Work Phone: [facility] 10-03-2023 06:57-0400 Body weight 52.2 kg Ramiro Hugo MD Work Phone: [facility] 09-29-2023 14:35-0400 Body height 160 cm Conor Duarte MD Work Phone: [facility] 09-29-2023 14:35-0400 Body mass index (BMI) [Ratio] 20.27 kg/m2 Conor Duarte MD Work Phone: [facility] 09-29-2023 14:35-0400 Body temperature 97.59 [degF] Conor Duarte MD Work Phone: [facility] 09-29-2023 14:35-0400 Body weight 51.89 kg Conor Duarte MD Work Phone: [facility] 09-29-2023 14:35-0400 Diastolic blood pressure 62 mm[Hg] Conor Duarte MD Work Phone: [facility] 09-29-2023 14:35-0400 Heart rate 88 /min Conor Duarte MD Work Phone: [facility] 09-29-2023 14:35-0400 SaO2% (BldA) [Mass fraction] 100 % Conor Duarte MD Work Phone: [facility] 09-29-2023 14:35-0400 Systolic blood pressure 100 mm[Hg] Conor Duarte MD Work Phone: [facility] 09-23-2023 11:41-0400 Body mass index (BMI) [Ratio] 19.84 kg/m2 Mary Jo Barnett MD Work Phone: [facility] 09-23-2023 11:41-0400 Body weight 50.8 kg Mary Jo Barnett MD Work Phone: [facility] 09-23-2023 11:41-0400 Diastolic blood pressure 60 mm[Hg] Mary Jo Barnett MD Work Phone: [facility] 09-23-2023 11:41-0400 Systolic blood pressure 100 mm[Hg] Mary Jo Barnett MD Work Phone: [facility] 09-18-2023 10:10-0400 Body height 160 cm Barbi Haury BOND TRADER.BLOOD TESTER FOWL Work Phone: [facility] 09-18-2023 10:10-0400 Body mass index (BMI) [Ratio] 20.73 kg/m2 Barbi Haury BOND TRADER.BLOOD TESTER FOWL Work Phone: [facility] 09-18-2023 10:10-0400 Body weight 53.07 kg Barbi Haury BOND TRADER.BLOOD TESTER [employer]OWL Work Phone: [facility] 09-18-2023 10:10-0400 Diastolic blood pressure 70 mm[Hg] Barbi Haury BOND TRADER.BLOOD TESTER [employer]OWL Work Phone: [facility] 09-18-2023 10:10-0400 Heart rate 78 /min Barbi Haury BOND TRADER.BLOOD TESTER [employer]OWL Work Phone: [facility] 09-18-2023 10:10-0400 Respiratory rate 12 /min Barbi Haury BOND TRADER.BLOOD TESTER [employer]OWL Work Phone: [facility] 09-18-2023 10:10-0400 SaO2% (BldA) [Mass fraction] 98 % Barbi Haury BOND TRADER.BLOOD TESTER [employer]OWL Work Phone: [facility] 09-18-2023 10:10-0400 Systolic blood pressure 110 mm[Hg] Barbi Haury BOND TRADER.BLOOD TESTER FOWL Work Phone: [facility] 09-12-2023 10:36-0400 Body height 160 cm Mary Jo Barnett MD Work Phone: [facility] 09-12-2023 10:36-0400 Body mass index (BMI) [Ratio] 20.37 kg/m2 Mary Jo Barnett MD Work Phone: [facility] 09-12-2023 10:36-0400 Body weight 52.16 kg Mary Jo Barnett MD Work Phone: [facility] 09-12-2023 10:36-0400 Diastolic blood pressure 60 mm[Hg] Mary Jo Barnett MD Work Phone: [facility] 09-12-2023 10:36-0400 Heart rate 73 /min Mary Jo Barnett MD Work Phone: [facility] 09-12-2023 10:36-0400 SaO2% (BldA) [Mass fraction] 98 % Mary Jo Barnett MD Work Phone: [facility] 09-12-2023 10:36-0400 Systolic blood pressure 100 mm[Hg] Mary Jo Barnett MD Work Phone: [facility] 09-01-2023 09:19-0400 Body height 160 cm Pacc 1 Work Phone: [facility] 09-01-2023 09:19-0400 Body mass index (BMI) [Ratio] 21.08 kg/m2 Pacc 1 Work Phone: [facility] 09-01-2023 09:19-0400 Body temperature 97.9 [degF] Pacc 1 Work Phone: [facility] 09-01-2023 09:19-0400 Body weight 53.98 kg Pacc 1 Work Phone: [facility] 09-01-2023 09:19-0400 Diastolic blood pressure 60 mm[Hg] Pacc 1 Work Phone: [facility] 09-01-2023 09:19-0400 Heart rate 66 /min Pacc 1 Work Phone: [facility] 09-01-2023 09:19-0400 Respiratory rate 14 /min Pacc 1 Work Phone: [facility] 09-01-2023 09:19-0400 SaO2% (BldA) [Mass fraction] 100 % Pacc 1 Work Phone: [facility] 09-01-2023 09:19-0400 Systolic blood pressure 96 mm[Hg] Pacc 1 Work Phone: [facility] 08-21-2023 11:35-0400 Body height 160 cm Ramiro Hugo MD Work Phone: [facility] 08-21-2023 11:35-0400 Body mass index (BMI) [Ratio] 21.79 kg/m2 Ramiro Hugo MD Work Phone: [facility] 08-21-2023 11:35-0400 Body weight 55.79 kg Ramiro Hugo MD Work Phone: [facility] 08-21-2023 11:35-0400 Diastolic blood pressure 63 mm[Hg] Ramiro Hugo MD Work Phone: [facility] 08-21-2023 11:35-0400 Heart rate 75 /min Ramiro Hugo MD Work Phone: [facility] 08-21-2023 11:35-0400 SaO2% (BldA) [Mass fraction] 98 % Ramiro Hugo MD Work Phone: [facility] 08-21-2023 11:35-0400 Systolic blood pressure 98 mm[Hg] Ramiro Hugo MD Work Phone: [facility] 08-20-2023 09:23-0400 Body mass index (BMI) [Ratio] 20.9 kg/m2 Mary Jo Barnett MD Work Phone: [facility] 08-20-2023 09:23-0400 Body weight 53.52 kg Mary Jo Barnett MD Work Phone: [facility] 08-20-2023 09:23-0400 Diastolic blood pressure 60 mm[Hg] Mary Jo Barnett MD Work Phone: [facility] 08-20-2023 09:23-0400 Systolic blood pressure 94 mm[Hg] Mary Jo Barnett MD Work Phone: [facility] 08-19-2023 15:47-0400 Body mass index (BMI) [Ratio] 21.12 kg/m2 Sandra Kelsey BOND TRADER.BLOOD TESTER [employer]OWL Work Phone: [facility] 08-19-2023 15:47-0400 Body weight 54.07 kg Sandra Kelsey BOND TRADER.BLOOD TESTER [employer]OWL Work Phone: [facility] 08-19-2023 15:47-0400 Diastolic blood pressure 58 mm[Hg] Sandra Kelsey BOND TRADER.BLOOD TESTER [employer]OWL Work Phone: [facility] 08-19-2023 15:47-0400 Systolic blood pressure 98 mm[Hg] Sandra Kelsey BOND TRADER.BLOOD TESTER [employer]OWL Work Phone: [facility] 08-18-2023 08:21-0400 Body mass index (BMI) [Ratio] 21.26 kg/m2 Sandra Rainier BOND TRADER.BLOOD TESTER [employer]OWL Work Phone: [facility] 08-18-2023 08:21-0400 Body weight 54.43 kg Sandra Rainier BOND TRADER.BLOOD TESTER [employer]OWL Work Phone: [facility] 08-18-2023 08:21-0400 Diastolic blood pressure 64 mm[Hg] Sandra Kelsey BOND TRADER.BLOOD TESTER [employer]OWL Work Phone: [facility] 08-18-2023 08:21-0400 Systolic blood pressure 100 mm[Hg] Sandra Kelsey BOND TRADER.BLOOD TESTER [employer]OWL Work Phone: [facility] 07-31-2023 15:04-0400 Body height 160 cm Rachell Queden BOND TRADER.BLOOD TESTER [employer]OWL Work Phone: [facility] 07-31-2023 15:04-0400 Body mass index (BMI) [Ratio] 20.73 kg/m2 Rachell Queden BOND TRADER.BLOOD TESTER [employer]OWL Work Phone: [facility] 07-31-2023 15:04-0400 Body temperature 97.9 [degF] Rachell Queden BOND TRADER.BLOOD TESTER [employer]OWL Work Phone: [facility] 07-31-2023 15:04-0400 Body weight 53.07 kg Rachell Queden BOND TRADER.BLOOD TESTER [employer]OWL Work Phone: [facility] 07-31-2023 15:04-0400 Diastolic blood pressure 62 mm[Hg] Rachell Queden BOND TRADER.BLOOD TESTER [employer]OWL Work Phone: [facility] 07-31-2023 15:04-0400 Heart rate 73 /min Rachell Queden BOND TRADER.BLOOD TESTER [employer]OWL Work Phone: [facility] 07-31-2023 15:04-0400 Respiratory rate 16 /min Rachell Queden BOND TRADER.BLOOD TESTER [employer]OWL Work Phone: [facility] 07-31-2023 15:04-0400 SaO2% (BldA) [Mass fraction] 98 % Rachell Queden BOND TRADER.BLOOD TESTER [employer]OWL Work Phone: [facility] 07-31-2023 15:04-0400 Systolic blood pressure 102 mm[Hg] Rachell Queden BOND TRADER.BLOOD TESTER [employer]OWL Work Phone: [facility] 07-24-2023 10:49-0400 Body mass index (BMI) [Ratio] 21.43 kg/m2 Gino Valero BOND TRADER.CNM Work Phone: [facility] 07-24-2023 10:49-0400 Body weight 54.88 kg Gino Valero BOND TRADER.CNM Work Phone: [facility] 07-24-2023 10:49-0400 Diastolic blood pressure 64 mm[Hg] Gino Plotts BOND TRADER.CNM Work Phone: [facility] 07-24-2023 10:49-0400 Systolic blood pressure 100 mm[Hg] Gino Plotts BOND TRADER.CNM Work Phone: [facility] 07-02-2023 13:26-0400 Body height 160 cm Mitra Reed BOND TRADER.BLOOD TESTER [employer]OWL Work Phone: [facility] 07-02-2023 13:26-0400 Body mass index (BMI) [Ratio] 20.37 kg/m2 Mitra Reed APRN.BLOOD TESTER FOWL Work Phone: [facility] 07-02-2023 13:26-0400 Body temperature 98.49 [degF] Mitra Reed APRN.BLOOD TESTER FOWL Work Phone: [facility] 07-02-2023 13:26-0400 Body weight 52.16 kg Mitra Reed APRN.BLOOD TESTER [employer]OWL Work Phone: [facility] 07-02-2023 13:26-0400 Diastolic blood pressure 60 mm[Hg] Mitra Rede APRN.BLOOD TESTER FOWL Work Phone: [facility] 07-02-2023 13:26-0400 Heart rate 87 /min Mitra Reed APRN.BLOOD TESTER [employer]OWL Work Phone: [facility] 07-02-2023 13:26-0400 SaO2% (BldA) [Mass fraction] 99 % Mitra Reed APRN.BLOOD TESTER [employer]OWL Work Phone: [facility] 07-02-2023 13:26-0400 Systolic blood pressure 100 mm[Hg] Mitra Reed APRN.BLOOD TESTER [employer]OWL Work Phone: [facility] 07-02-2023 08:13-0400 Body height 159.7 cm Miki Jaramillo MD Work Phone: [facility] 07-02-2023 08:13-0400 Body mass index (BMI) [Ratio] 20.6 kg/m2 Miki Jaramillo MD Work Phone: [facility] 07-02-2023 08:13-0400 Body temperature 97.3 [degF] Miki Jaramillo MD Work Phone: [facility] 07-02-2023 08:13-0400 Body weight 52.53 kg Miki Jaramillo MD Work Phone: [facility] 07-02-2023 08:13-0400 Diastolic blood pressure 69 mm[Hg] Miki Jaramillo MD Work Phone: [facility] 07-02-2023 08:13-0400 Heart rate 86 /min Miki Jaramillo MD Work Phone: [facility] 07-02-2023 08:13-0400 Respiratory rate 16 /min Miki Jaramillo MD Work Phone: [facility] 07-02-2023 08:13-0400 SaO2% (BldA) [Mass fraction] 99 % Miki Jaramillo MD Work Phone: [facility] 07-02-2023 08:13-0400 Systolic blood pressure 104 mm[Hg] Miki Jaramillo MD Work Phone: [facility] 06-26-2023 13:24-0400 Body mass index (BMI) [Ratio] 20.73 kg/m2 Prabhu Ortez MD Work Phone: [facility] 06-26-2023 13:24-0400 Body weight 53.07 kg Prabhu Ortez MD Work Phone: [facility] 06-26-2023 13:24-0400 Diastolic blood pressure 64 mm[Hg] Prabhu Ortez MD Work Phone: [facility] 06-26-2023 13:24-0400 Systolic blood pressure 102 mm[Hg] Prabhu Ortez MD Work Phone: [facility] 06-25-2023 13:56-0400 Diastolic blood pressure 86 mm[Hg] Norbert Noriega MD Work Phone: [facility] 06-25-2023 13:56-0400 Systolic blood pressure 102 mm[Hg] Norbert Noriega MD Work Phone: [facility] 06-25-2023 13:50-0400 Body height 160 cm Norbert Noriega MD Work Phone: [facility] 06-25-2023 13:50-0400 Body mass index (BMI) [Ratio] 20.9 kg/m2 Norbert Noriega MD Work Phone: [facility] 06-25-2023 13:50-0400 Body weight 53.52 kg Norbert Noriega MD Work Phone: [facility] 06-25-2023 13:50-0400 Heart rate 100 /min Norbert Noriega MD Work Phone: [facility] 06-25-2023 13:50-0400 SaO2% (BldA) [Mass fraction] 99 % Norbert Noriega MD Work Phone: [facility] 06-24-2023 22:01-0400 Diastolic blood pressure 77 mm[Hg] Rachell Queden BOND TRADER-BLOOD TESTER [employer] Work Phone: [facility] 06-24-2023 22:01-0400 Heart rate 70 /min Rachell Queden BOND TRADER-BLO[employer] TE[employer] Work Phone: [facility] 06-24-2023 22:01-0400 Respiratory rate 18 /min Rachell Queden BOND TRADER-BLO[employer] TE[employer] Work Phone: [facility] 06-24-2023 22:01-0400 SaO2% (BldA) [Mass fraction] 98 % Rachell Queden BOND TRADER-BLO[employer] TE[employer] Work Phone: [facility] 06-24-2023 22:01-0400 Systolic blood pressure 125 mm[Hg] Rachell Queden BOND TRADER-BLO[employer] TE[employer] Work Phone: [facility] 06-24-2023 18:41-0400 Body height 160 cm Rachell Queden BOND TRADER-BLO[employer] TE[employer] Work Phone: [facility] 06-24-2023 18:41-0400 Body mass index (BMI) [Ratio] 20.73 kg/m2 Rachell Queden BOND TRADER-BLO[employer] TE[employer] Work Phone: [facility] 06-24-2023 18:41-0400 Body temperature 97.39 [degF] Rachell Queden BOND TRADER-BLO[employer] TE[employer] Work Phone: [facility] 06-24-2023 18:41-0400 Body weight 53.07 kg Rachell Amador BOND TRADER-BLOOD TE[employer] Work Phone: [facility] 06-22-2023 09:33-0400 Body height 160.02 cm [facility] 06-22-2023 09:33-0400 Body mass index (BMI) [Ratio] 22.2 kg/m2 [facility] 06-22-2023 09:33-0400 Body temperature 97.3 [degF] [facility] 06-22-2023 09:33-0400 Body weight 57 kg [facility] 06-22-2023 09:33-0400 Diastolic blood pressure 90 mm[Hg] [facility] 06-22-2023 09:33-0400 Heart rate 81 /min [facility] 06-22-2023 09:33-0400 Respiratory rate 16 /min [facility] 06-22-2023 09:33-0400 SaO2% (BldA) [Mass fraction] 99 % [facility] 06-22-2023 09:33-0400 Systolic blood pressure 120 mm[Hg] [facility] 06-21-2023 09:30-0400 Diastolic blood pressure 72 mm[Hg] Saturnino Velázquez DO Work Phone: [facility] 06-21-2023 09:30-0400 Heart rate 78 /min Saturnino Velázquez DO Work Phone: [facility] 06-21-2023 09:30-0400 Respiratory rate 16 /min Saturnino Velázquez DO Work Phone: [facility] 06-21-2023 09:30-0400 SaO2% (BldA) [Mass fraction] 100 % Satunrino Velázquez DO Work Phone: [facility] 06-21-2023 09:30-0400 Systolic blood pressure 122 mm[Hg] Saturnino Velázquez DO Work Phone: [facility] 06-21-2023 08:19-0400 Body mass index (BMI) [Ratio] 22.32 kg/m2 Saturnino Velázquez DO Work Phone: [facility] 06-21-2023 08:19-0400 Body weight 57.15 kg Saturnino Irbyasters DO Work Phone: [facility] 06-21-2023 08:17-0400 Body temperature 98.4 [degF] Saturnino Lemasters DO Work Phone: [facility] 06-20-2023 11:24-0400 Body temperature 97.2 [degF] Saturnino Lemasters DO Work Phone: [facility] 06-20-2023 11:24-0400 Diastolic blood pressure 53 mm[Hg] Saturnino Velázquez DO Work Phone: [facility] 06-20-2023 11:24-0400 Heart rate 92 /min Saturnino Velázquez DO Work Phone: [facility] 06-20-2023 11:24-0400 Respiratory rate 16 /min Saturnino Velázquez DO Work Phone: [facility] 06-20-2023 11:24-0400 SaO2% (BldA) [Mass fraction] 96 % Saturnino Velázquez DO Work Phone: [facility] 06-20-2023 11:24-0400 Systolic blood pressure 90 mm[Hg] Saturnino Velázquez DO Work Phone: [facility] 06-20-2023 03:29-0400 Body height 160 cm Saturnino Velázquez DO Work Phone: [facility] 06-20-2023 03:29-0400 Body mass index (BMI) [Ratio] 22.38 kg/m2 Saturnino Irbyasters DO Work Phone: [facility] 06-20-2023 03:29-0400 Body weight 57.3 kg Saturnino Velázquez DO Work Phone: [facility] 06-18-2023 18:05-0400 Diastolic blood pressure 68 mm[Hg] Saturnino Velázquez DO Work Phone: [facility] 06-18-2023 18:05-0400 Heart rate 50 /min Saturnino Velázquez DO Work Phone: [facility] 06-18-2023 18:05-0400 Respiratory rate 18 /min Saturnino Velázquez DO Work Phone: [facility] 06-18-2023 18:05-0400 SaO2% (BldA) [Mass fraction] 100 % Saturnino Velázquez DO Work Phone: [facility] 06-18-2023 18:05-0400 Systolic blood pressure 107 mm[Hg] Saturnino Velázquez DO Work Phone: [facility] 06-18-2023 17:21-0400 Body height 160 cm Saturnino Velázquez DO Work Phone: [facility] 06-18-2023 17:21-0400 Body mass index (BMI) [Ratio] 21.79 kg/m2 Saturnino Velázquez DO Work Phone: [facility] 06-18-2023 17:21-0400 Body temperature 97.81 [degF] Saturnino Velázquez DO Work Phone: [facility] 06-18-2023 17:21-0400 Body weight 55.79 kg Saturnino Velázquez DO Work Phone: [facility] 06-17-2023 11:30-0400 Diastolic blood pressure 65 mm[Hg] Alla Llanes MD Work Phone: [facility] 06-17-2023 11:30-0400 Heart rate 68 /min Alla Llanes MD Work Phone: [facility] 06-17-2023 11:30-0400 Respiratory rate 16 /min Alla Llanes MD Work Phone: [facility] 06-17-2023 11:30-0400 SaO2% (BldA) [Mass fraction] 100 % Alla Llanes MD Work Phone: [facility] 06-17-2023 11:30-0400 Systolic blood pressure 105 mm[Hg] Alla Llanes MD Work Phone: [facility] 06-17-2023 10:33-0400 Body temperature 96.69 [degF] Alla Llanes MD Work Phone: 1(394)[phone] [place] [address] 06-17-2023 08:42-0400 Body height 160 cm Alla Llanes MD Work Phone: 4(512)[phone] [place] [address] 06-17-2023 08:42-0400 Body mass index (BMI) [Ratio] 21.95 kg/m2 Alla Llanes MD Work Phone: 5(012)[phone] [place] [address] 06-17-2023 08:42-0400 Body weight 56.2 kg Alla Llanes MD Work Phone: 6(532)[phone] [place] [address] 06-03-2023 14:08-0400 Body height 160 cm Alla Llanes MD Work Phone: 7(043)[phone] [place] [address] 06-03-2023 14:08-0400 Diastolic blood pressure 58 mm[Hg] Alla Llanes MD Work Phone: [facility] 06-03-2023 14:08-0400 Heart rate 90 /min Alla Llanes MD Work Phone: 3(245)[phone] [place] [address] 06-03-2023 14:08-0400 Systolic blood pressure 98 mm[Hg] Alla Llanes MD Work Phone: [facility] 06-03-2023 10:49-0400 Body height 160 cm Rachell Amador APRN.BLOOD TESTER FOWL Work Phone: [facility] 06-03-2023 10:49-0400 Body mass index (BMI) [Ratio] 23.03 kg/m2 Rachell Amador APRN.BLOOD TESTER FOWL Work Phone: [facility] 06-03-2023 10:49-0400 Body temperature 98.01 [degF] Rachell Queden BOND TRADER.BLOOD TESTER FOWL Work Phone: [facility] 06-03-2023 10:49-0400 Body weight 58.97 kg Rachell Queden BOND TRADER.BLOOD TESTER FOWL Work Phone: [facility] 06-03-2023 10:49-0400 Diastolic blood pressure 62 mm[Hg] Rachell Queden BOND TRADER.BLOOD TESTER FOWL Work Phone: [facility] 06-03-2023 10:49-0400 Heart rate 78 /min Rachell Queden BOND TRADER.BLOOD TESTER FOWL Work Phone: [facility] 06-03-2023 10:49-0400 Respiratory rate 18 /min Rachell Queden BOND TRADER.BLOOD TESTER FOWL Work Phone: [facility] 06-03-2023 10:49-0400 SaO2% (BldA) [Mass fraction] 97 % Rachell Queden BOND TRADER.BLOOD TESTER FOWL Work Phone: [facility] 06-03-2023 10:49-0400 Systolic blood pressure 104 mm[Hg] Rachell Queden BOND TRADER.BLOOD TESTER FOWL Work Phone: [facility] 04-23-2023 13:57-0400 Body weight 54.88 kg Gino Plotts BOND TRADER.CNM Work Phone: [facility] 04-23-2023 13:57-0400 Diastolic blood pressure 70 mm[Hg] Gino Plotts BOND TRADER.CNM Work Phone: [facility] 04-23-2023 13:57-0400 Systolic blood pressure 108 mm[Hg] Gino Plotts BOND TRADER.CNM Work Phone: [facility] 01-30-2023 12:14-0500 Body height 160 cm Prabhu Ortez MD Work Phone: [facility] 01-30-2023 12:14-0500 Body weight 63.5 kg Prabhu Ortez MD Work Phone: [facility] 01-30-2023 12:14-0500 Diastolic blood pressure 72 mm[Hg] Prabhu Ortez MD Work Phone: [facility] 01-30-2023 12:14-0500 Systolic blood pressure 114 mm[Hg] Prabhu Ortez MD Work Phone: [facility] 12-03-2022 14:41-0400 Body weight 70.85 kg Prabhu Ortez MD Work Phone: [facility] 12-03-2022 14:41-0400 Diastolic blood pressure 68 mm[Hg] Prabhu Ortez MD Work Phone: [facility] 12-03-2022 14:41-0400 Systolic blood pressure 108 mm[Hg] Prabhu Ortez MD Work Phone: [facility] 11-19-2022 15:48-0400 Body weight 68.4 kg Prabhu Ortez MD Work Phone: [facility] 11-19-2022 15:48-0400 Diastolic blood pressure 68 mm[Hg] Prabhu Ortez MD Work Phone: [facility] 11-19-2022 15:48-0400 Systolic blood pressure 106 mm[Hg] Prabhu Ortez MD Work Phone: [facility] 11-18-2022 13:14-0400 Body weight 67.5 kg Jaquelin Hi APRN.CNM Work Phone: [facility] 11-18-2022 13:14-0400 Diastolic blood pressure 62 mm[Hg] Jaquelin Hi BOND TRADER.CNM Work Phone: [facility] 11-18-2022 13:14-0400 Systolic blood pressure 98 mm[Hg] Jaquelin Hi BOND TRADER.CNM Work Phone: [facility] 08-29-2022 17:57-0400 Diastolic blood pressure 71 mm[Hg] [facility] 08-29-2022 17:57-0400 Heart rate 72 /min [facility] 08-29-2022 17:57-0400 Respiratory rate 15 /min [facility] 08-29-2022 17:57-0400 SaO2% (BldA) [Mass fraction] 98 % [facility] 08-29-2022 17:57-0400 Systolic blood pressure 108 mm[Hg] [facility] 08-29-2022 15:30-0400 Body height 160.02 cm [facility] 08-29-2022 15:30-0400 Body mass index (BMI) [Percentile] Per age and sex 70.6 % [facility] 08-29-2022 15:30-0400 Body mass index (BMI) [Ratio] 23.8 kg/m2 [facility] 08-29-2022 15:30-0400 Body temperature 96.8 [degF] [facility] 08-29-2022 15:30-0400 Body weight 61.1 kg [facility] 08-17-2022 13:28-0400 Heart rate 78 /min [facility] 08-17-2022 13:28-0400 Respiratory rate 18 /min [facility] 08-17-2022 13:28-0400 SaO2% (BldA) [Mass fraction] 98 % [facility] 08-17-2022 10:15-0400 Body height 160.02 cm [facility] 08-17-2022 10:15-0400 Body temperature 97.1 [degF] [facility] 08-17-2022 10:15-0400 Diastolic blood pressure 58 mm[Hg] [facility] 08-17-2022 10:15-0400 Systolic blood pressure 102 mm[Hg] [facility] 07-12-2022 19:15-0400 Diastolic blood pressure 66 mm[Hg] No Pcp Required [facility] 07-12-2022 19:15-0400 Heart rate 91 /min No Pcp Required [facility] 07-12-2022 19:15-0400 Respiratory rate 16 /min No Pcp Required [facility] 07-12-2022 19:15-0400 SaO2% (BldA) [Mass fraction] 100 % No Pcp Required [facility] 07-12-2022 19:15-0400 Systolic blood pressure 110 mm[Hg] No Pcp Required [facility] 07-12-2022 15:29-0400 Body height 160 cm No Pcp Required [facility] 07-12-2022 15:29-0400 Body temperature 97.52 [degF] No Pcp Required [facility] 07-12-2022 15:29-0400 Body weight 54.5 kg No Pcp Required [facility] 11-12-2021 19:03-0400 Body temperature 98.6 [degF] Leeann Silva BOND TRADER.BLOOD TESTER FOWL Work Phone: [facility] 11-12-2021 19:03-0400 Body weight 54.34 kg Leeann Silva BOND TRADER.BLOOD TESTER FOWL Work Phone: [facility] 11-12-2021 19:03-0400 Diastolic blood pressure 82 mm[Hg] Leeann Silva BOND TRADER.BLOOD TESTER FOWL Work Phone: [facility] 11-12-2021 19:03-0400 Heart rate 87 /min Leeann Silva BOND TRADER.BLOOD TESTER FOWL Work Phone: [facility] 11-12-2021 19:03-0400 Respiratory rate 18 /min Leeann Silva BOND TRADER.BLOOD TESTER FOWL Work Phone: [facility] 11-12-2021 19:03-0400 SaO2% (BldA) [Mass fraction] 100 % Leeann Ascencio BOND TRADER.BLOOD TESTER FOWL Work Phone: [facility] 11-12-2021 19:03-0400 Systolic blood pressure 116 mm[Hg] Leeann Silva BOND TRADER.BLOOD TESTER FOWL Work Phone: [facility] 08-14-2021 11:47-0400 Body temperature 98.29 [degF] Steven Bob BOND TRADER.BLOOD TESTER FOWL Work Phone: [facility] 08-14-2021 11:47-0400 Body weight 49.9 kg Steven Rojas BOND TRADER.BLOOD TESTER FOWL Work Phone: [facility] 08-14-2021 11:47-0400 Diastolic blood pressure 72 mm[Hg] Steven Rojas BOND TRADER.BLOOD TESTER FOWL Work Phone: [facility] 08-14-2021 11:47-0400 Heart rate 80 /min Steven Pendleannbury BOND TRADER.BLOOD TESTER FOWL Work Phone: [facility] 08-14-2021 11:47-0400 Respiratory rate 18 /min Steven Tricebury BOND TRADER.BLOOD TESTER FOWL Work Phone: [facility] 08-14-2021 11:47-0400 SaO2% (BldA) [Mass fraction] 99 % Steven Tricebury BOND TRADER.BLOOD TESTER FOWL Work Phone: [facility] 08-14-2021 11:47-0400 Systolic blood pressure 102 mm[Hg] Steven Pendlebury BOND TRADER.BLOOD TESTER FOWL Work Phone: [facility] 03-21-2021 19:30-0500 Diastolic blood pressure 64 mm[Hg] No Pcp Required [facility] 03-21-2021 19:30-0500 Heart rate 68 /min No Pcp Required [facility] 03-21-2021 19:30-0500 Respiratory rate 16 /min No Pcp Required [facility] 03-21-2021 19:30-0500 SaO2% (BldA) [Mass fraction] 96 % No Pcp Required [facility] 03-21-2021 19:30-0500 Systolic blood pressure 112 mm[Hg] No Pcp Required [facility] 03-21-2021 14:50-0500 Body height 160 cm No Pcp Required [facility] 03-21-2021 14:50-0500 Body temperature 98.78 [degF] No Pcp Required [facility] 03-21-2021 14:50-0500 Body weight 50.5 kg No Pcp Required [facility] Encounters Encounter Date Encounter Type Care Provider Facility Start: 10-05-2024 End: 10-05-2024 ambulatory Joyce Huston MA [facility] [place] Comment on above: Labs Needed Start: 10-05-2024 End: 10-05-2024 E-mail encounter from caregiver Sheila Pfeiffer RN BLOOD MANAGEMENT Start: 10-05-2024 End: 10-05-2024 Patient encounter procedure Joyce Huston MA [facility] [place] Comment on above: Population Health Na vigation Outreach (Ob/peds) Start: 09-28-2024 End: 09-28-2024 Patient encounter procedure Jaquelin Hi APRN.CNM Work Phone: OB/Gynecology Comment on above: Supervision of high risk in third trimester (HCC) (Primary Dx); 37 weeks gestation of (HCC); History of pulmonary embolism; History of shoulder dystocia in prior ; Antepartum anemia complicating in third trimester (HCC); headache in third trimester (HCC); Rh negative state in antepartum period (HCC); History of depression Start: 09-28-2024 End: 09-28-2024 ambulatory RACHELL AMADOR Facility:[facility] Start: 09-23-2024 End: 09-23-2024 Follow-up encounter Barbi Tian APRN.CNP Work Phone: OB/Gynecology Start: 2024 End: 2024 ambulatory RACHELL AMADOR Facility:[facility] Start: 2024 End: 2024 Patient encounter procedure Yamila Ballard MD Work Phone: OB/Gynecology Comment on above: Supervision of high risk in third trimester (HCC) (Primary Dx); History of pulmonary embolism; History of shoulder dystocia in prior ; Abnormality in heart rate or rhythm, antepartum (HCC); Antepartum anemia complicating in third trimester (HCC); Irregular uterine contractions (HCC); 37 weeks gestation of (HCC); Vaginal discharge during in third trimester (HCC) Start: 09-21-2024 End: 09-21-2024 Telephone encounter Yamila Ballard APRN.CNM Work Phone: OB/Gynecology Comment on above: [facility] Start: 09-19-2024 End: 09-19-2024 ambulatory Rachell Amador BIOMETRICS SPECIALIST-C Work Phone: [facility] Start: 09-19-2024 End: 09-19-2024 Patient encounter procedure Jaquelin Hi CNM -[facility] Work Phone: Start: 09-17-2024 End: 09-17-2024 ambulatory BARBI CASSY Facility:[facility] Start: 09-16-2024 End: 09-16-2024 ambulatory RACHELL AMADOR Facility:[facility] Start: 09-11-2024 End: 09-11-2024 ambulatory PHYSICIAN [facility] Start: 09-10-2024 End: 09-10-2024 ambulatory Yamila Ballard MD Work Phone: OB/Gynecology Comment on above: UTI Start: 09-09-2024 End: 09-09-2024 ambulatory RIO KELLY [facility] Start: 09-09-2024 End: 09-09-2024 Subsequent hospital visit by physician Rio Kelly DO Work Phone: [facility] Start: 09-09-2024 End: 09-09-2024 Telephone encounter Jaquelin Hi APRN.CNM Work Phone: OB/Gynecology Comment on above: Care Start: 09-09-2024 End: 09-09-2024 ambulatory Rachell Amador BIOMETRICS SPECIALIST-C Work Phone: -[facility] Start: 09-09-2024 End: 09-09-2024 Patient encounter procedure Jaquelin Hi CNM -[facility] Work Phone: Start: 09-08-2024 End: 09-08-2024 ambulatory RACHELL AMADOR Facility:[facility] Start: 09-08-2024 End: 09-08-2024 Patient encounter procedure Gino Valero APRN.CNM Work Phone: OB/Gynecology Comment on above: 35 weeks gestation o f (HCC) (Primary Dx); Irregular uterine contractions (HCC); Supervision of high risk in third trimester (HCC) Start: 09-07-2024 End: 09-08-2024 ambulatory Rachell Amador BIOMETRICS SPECIALIST-C Work Phone: -[facility] Start: 09-07-2024 End: 09-07-2024 ambulatory YAMILA BALLARD Facility:[facility] Start: 09-07-2024 End: 09-08-2024 Patient encounter procedure Shanice Whittington 1 Ladle Liner Helper [facility] Maternal Medicine Comment on above: Encounter for ultras ound to check growth (HCC) (Primary Dx); History of shoulder dystocia in prior ; 34 weeks gestation of (HCC) Supervision of high risk in third trimester (HCC) (Primary Dx); 34 weeks gestation of (HCC); History of shoulder dystocia in prior Start: 09-04-2024 End: 09-04-2024 ambulatory [facility] Start: 08-24-2024 End: 08-24-2024 ambulatory [facility] Comment on above: Maternal iron defici ency anemia complicating , third trimester (HCC) (Primary Dx) Start: 08-24-2024 End: 08-24-2024 ambulatory RACHELL AMADOR Facility:[facility] Start: 08-24-2024 End: 08-24-2024 Patient encounter procedure Prabhu Ortez MD Work Phone: OB/Gynecology Comment on above: Supervision of high risk in third trimester (HCC) (Primary Dx); Thrombocytopenia affecting (HCC); History of shoulder dystocia in prior ; Antepartum anemia complicating in third trimester (HCC); Paroxysmal SVT (supraventricular tachycardia) (HCC); 32 weeks gestation of (HCC) Start: 08-20-2024 End: 08-20-2024 ambulatory [facility] Comment on above: Maternal iron defici ency anemia complicating , third trimester (HCC) (Primary Dx) Start: 08-17-2024 End: 08-17-2024 ambulatory [facility] Comment on above: Maternal iron defici ency anemia complicating , third trimester (HCC) (Primary Dx) Start: 08-12-2024 End: 08-12-2024 ambulatory [facility] Comment on above: Maternal iron defici ency anemia complicating , third trimester (HCC) (Primary Dx) Start: 08-10-2024 End: 08-10-2024 ambulatory RACHELL AMADOR Facility:[facility] Start: 08-10-2024 End: 08-10-2024 Patient encounter procedure Prabhu Ortez MD Work Phone: OB/Gynecology Comment on above: Supervision of high risk in third trimester (HCC) (Primary Dx); Thrombocytopenia affecting (HCC); Antepartum anemia complicating in third trimester (HCC); History of shoulder dystocia in prior ; Paroxysmal SVT (supraventricular tachycardia) ([facility]) Start: 08-05-2024 End: 08-05-2024 ambulatory RACHELL AMADOR Facility:[facility] Start: 08-05-2024 End: 08-05-2024 Patient encounter procedure Nayely Louise PARKER Work Phone: BLOOD MANAGEMENT Comment on above: Maternal iron defici ency anemia complicating , third trimester (HCC) (Primary Dx) Start: 08-05-2024 End: 08-05-2024 Telemedicine consultation with patient Nayely Louise PARKER Work Phone: BLOOD MANAGEMENT Start: 08-03-2024 End: 08-18-2024 E-mail encounter from caregiver Nayely Louise PARKER Work Phone: BLOOD MANAGEMENT Start: 08-03-2024 End: 08-03-2024 ambulatory Rachell Amador BIOMETRICS SPECIALIST-C Work Phone: [facility] Work Phone: Start: 08-03-2024 End: 08-18-[address] Prabhu [facility]tez [facility] Work Phone: Comment on above: Blood Management Rico ointment Start: 08-03-2024 End: 08-03-2024 ambulatory [facility] Ambulatory Start: 08-03-2024 End: 08-03-2024 Office outpatient visit 25 minutes Ramiro Hugo MD Work Phone: [facility] Comment on above: SVT (supraventricula r tachycardia) Start: 08-01-2024 End: 08-03-2024 ambulatory Jaquelin Hi SHAHNAZM Work Phone: OB/Gynecology Comment on above: Preeclampsia Start: 07-28-2024 End: 09-27-2024 Follow-up encounter Yamila Ballard MD Work Phone: OB/Gynecology Start: 07-28-2024 End: 07-28-2024 Telephone encounter Nurse Ladle Liner Helper [place] Work Phone: Obstetrics/Gynecology Comment on above: PRAF [...] third trimester (HCC) Start: 07-27-2024 End: 07-27-2024 [facility] Facility:[facility] Start: 06-29-2024 End: 06-29-2024 [facility] Facility:[facility] Start: 06-02-2024 End: 06-02-2024 Telephone encounter Nurse Ladle Liner Helper [place] Work Phone: Obstetrics/Gynecology Comment on above: PRAF Start: 06-01-2024 End: 06-01-2024 Patient encounter procedure Whi Tech 1 [employer] [facility] Maternal Medicine Comment on above: Encounter for anatomic survey (HCC) (Primary Dx); 20 weeks gestation of (HCC) Supervision of other high risk pregnancies, second trimester (HCC) (Primary Dx); 20 weeks gestation of (HCC); History of shoulder dystocia in prior ; Rh negative state in antepartum period (HCC) Start: 06-01-2024 End: 06-01-2024 ambulatory [facility] Facility:[facility] Start: 05-10-2024 End: 05-11-2024 Telephone encounter Prabhu Ortez MD Work Phone: OB/Gynecology Comment on above: Breast Pump RX Start: 05-04-2024 End: 05-04-2024 [facility] Facility:[facility] Start: 05-04-2024 End: 05-04-2024 Patient encounter procedure [...] in antepartum period Start: 04-07-2024 End: 04-07-2024 [facility] Facility:[facility] Start: 04-07-2024 End: 04-07-2024 Patient encounter procedure Whi Tech 1 Lad[employer] Liner Helper [facility] Maternal Medicine Comment on above: Encounter for [facility] screening for malformation using ultrasound (Primary Dx); 13 weeks gestation of Supervision of other high risk pregnancies, second trimester (Primary Dx); 13 weeks gestation of ; Nausea and vomiting in ; History of cardiac radiofrequency ablation; History of pulmonary embolism; History of shoulder dystocia in prior ; History of depression; Rh negative state in antepartum period Start: 04-07-2024 End: 04-07-2024 [facility] Facility:[facility] Start: 03-16-2024 End: 03-16-2024 [facility] Facility:[facility] Start: 03-16-2024 End: 03-16-2024 Patient encounter procedure Jaquelin Hi APRN.CNM Work Phone: OB/Gynecology Comment on above: Supervision of other high risk pregnancies, first trimester (Primary Dx); History of pulmonary embolism; Nausea and vomiting in Start: 03-11-2024 End: 03-11-2024 Telephone encounter Chantelle Rodriguez RN Maternal Medic ine Comment on above: 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 Supply Officer - O ther (PRAF) Start: 03-10-2024 End: 03-10-2024 Emergency department patient visit [facility] Facility:[facility] Start: 03-09-2024 End: 03-09-2024 ambulatory RACHELL AMADOR Facility:[facility] Start: 03-09-2024 End: 03-09-2024 Patient encounter procedure Jaquelin Mateo RYO Work Phone: OB/Gynecology Comment on above: with uncer tain dates, antepartum (Primary Dx); Screening for cervical cancer; Screening for human papillomavirus (HPV); Screening for STDs (sexually transmitted diseases); Depression, unspecified depression type; History of pulmonary embolism; Supervision of other high risk pregnancies, first trimester; History of shoulder dystocia in prior ; History of depression Start: 02-26-2024 End: 02-26-2024 ambulatory Rachell Amador APRN.CNP Work Phone: [facility] Comment on above: ER F/U ([facility] 02/18/2024) Start: 02-19-2024 End: 02-19-2024 ambulatory Mary Jo Barnett MD Work Phone: OB/Gynecology Comment on above: ED visit 02/18/24 Start: 02-18-2024 End: 02-18-2024 Emergency department patient visit RACHELL AMADOR [facility] Emergency [facility] Comment on above: Urinary tract infect ion in mother during first trimester of ([facility]) (Primary Dx); Hypoglycemia; Nausea vomiting and diarrhea Start: 01-27-2024 End: 01-27-2024 Office outpatient visit 25 minutes Ramiro Hugo MD Work Phone: [facility] Comment on above: SVT (supraventricula r tachycardia) ([facility]-H[facility]) (Primary Dx); Atrial fibrillation, unspecified type (Multi); Palpitations Start: 01-27-2024 End: 01-27-2024 ambulatory RAMIRO HUGO [facility] Start: 12-26-2023 End: 12-26-2023 ambulatory RACHELL AMADOR Facility:[facility] Start: 12-26-2023 Encounter for genera l adult medical examination without abnormal findings RACHELL AMADOR [facility] Start: 12-26-2023 End: 12-26-2023 Patient encounter procedure Rachell Amador BOND TRADER.BLOOD TESTER FOWL Work Phone: [facility] Comment on above: Well adult exam (Tania miki Dx); Paroxysmal SVT (supraventricular tachycardia) (HCC); Palpitations Start: 12-26-2023 End: 12-26-2023 Patient encounter status Rachell Amador BOND TRADER.BLOOD TESTER FOWL Work Phone: [facility] Work Phone: Start: 12-10-2023 End: 12-10-2023 [facility]ulatory [facility] Start: 12-10-2023 End: 12-10-2023 Office outpatient visit 15 minutes Norbert Noriega MD Work Phone: [facility] Comment on above: Single subsegmental pulmonary embolism without acute cor pulmonale (Primary Dx); SVT (supraventricular tachycardia) ([facility]-H[facility]) Start: 11-24-2023 End: 11-24-2023 ambulatory RACHELL AMADOR Facility:[facility] Start: 11-24-2023 End: 11-24-2023 Patient encounter procedure Sandra Sutherlandcalf BOND TRADER.BLOOD TESTER FOWL Work Phone: OB/Gynecology Comment on above: Vaginal discharge (P rimary Dx) Start: 10-16-2023 End: 10-16-2023 ambulatory Faiza Pack BOND TRADER.BLOOD TESTER FOWL Work Phone: Gastroenterology Comment on above: Diarrhea due to usha bsorption (Primary Dx); Status post laparoscopic cholecystectomy Start: 10-16-2023 End: 10-16-2023 Telemedicine consultation with patient Faiza Pack BOND TRADER.BLOOD TESTER FOWL Work Phone: Gastroenterology Start: 10-03-2023 End: 10-03-2023 Subsequent hospital visit by physician Ramiro Hugo MD Work Phone: [facility] Comment on above: SVT (supraventricula r tachycardia) (CMS-HCC) (Primary Dx); Palpitations Start: 09-29-2023 End: 09-29-2023 Patient encounter procedure Conor Duarte MD Work Phone: General Surgery Comment on above: Status post laparosc opic cholecystectomy (Primary Dx); Functional diarrhea Start: 09-26-2023 End: 09-26-2023 ambulatory [facility] Start: 09-23-2023 End: 09-23-2023 Patient encounter procedure Mary Jo Barnett MD Work Phone: OB/Gynecology Comment on above: Post-operative state (Primary Dx); Functional diarrhea Start: 09-18-2023 End: 09-18-2023 Patient encounter procedure Barbi Tian APRN.BLOOD TESTER FOWL Work Phone: OB/Gynecology Comment on above: Post-op pain (Primar y Dx); Constipation, unspecified constipation type; Excessive bleeding in premenopausal period Start: 09-17-2023 ambulatory Mary Jo Barnett MD Work Phone: OB/Gynecology Comment on above: Incision sites Start: 09-16-2023 Telephone encounter Mary Jo Barnett MD Work Phone: OB/Gynecology Comment on above: Post Op Start: 09-15-2023 End: 09-15-2023 ambulatory [facility] Mario [facility] Facility:[facility] Start: 09-12-2023 End: 09-12-2023 Patient encounter procedure Mary Jo Barnett MD Work Phone: OB/Gynecology Comment on above: Malpositioned intrau terine device (IUD), sequela (Primary Dx); Pre-op exam Start: 09-12-2023 End: 09-12-2023 Preprocedural examination done Mary Jo Barnett MD Work Phone: [facility] Start: 09-10-2023 Refill Sandra Cole APRN.BLOOD TESTER FOWL Work Phone: OB/Gynecology Comment on above: Med Change Request Start: 09-03-2023 End: 09-03-[address] [facility] Start: 09-02-2023 Telephone encounter Joyce isaac PA-C Work Phone: Pre Anesthesia Comment on above: Preparations For José Miguel ember Start: 09-01-2023 End: 09-01-2023 PAT [facility] Work Phone: Pre Anesthesia Comment on above: Preoperative examina tion (Primary Dx); Single subsegmental pulmonary embolism without acute cor pulmonale (HCC); Vapes nicotine containing substance; Marijuana use; Generalized anxiety disorder; Depression, unspecified depression type; Paroxysmal SVT (supraventricular tachycardia) (HCC) Start: 09-01-2023 End: 09-01-2023 Preprocedural examination done [facility] Work Phone: [facility] Work Phone: Start: 08-26-2023 Telephone encounter Rachell Amador APRN.CNP Work Phone: [facility] Comment on above: Results Start: 08-25-2023 End: 08-25-2023 Subsequent hospital visit by physician Card/Pulm Lab [facility] PULMON[facility] Comment on above: Paroxysmal SVT (supr aventricular tachycardia) (HCC) [I47.10] Start: 08-21-2023 End: 08-21-2023 Office outpatient new 60 minutes Ramiro Hugo MD Work Phone: [facility] Comment on above: Pulmonary embolism ( Multi) (Primary Dx); SVT (supraventricular tachycardia) (CMS-HCC); Palpitations Start: 08-21-2023 End: 08-21-2023 ambulatory RAMIRO [facility] Start: 08-20-2023 End: 08-20-2023 Subsequent hospital visit by physician Xr [facility] [place] [facility] Work Phone: Radiology Comment on above: Malpositioned IUD, s equela [T83.32XS] Start: 08-20-2023 End: 08-20-2023 Patient encounter procedure Mary Jo Barnett MD Work Phone: OB/Gynecology Comment on above: Pelvic pain in femal e (Primary Dx); Malpositioned IUD, sequela Start: 08-19-2023 End: 08-19-2023 Patient encounter procedure Sandra Cole BOND TRADER.BLOOD TESTER FOWL Work Phone: OB/Gynecology Comment on above: Encounter for IUD re moval (Primary Dx); Malpositioned intrauterine device (IUD), initial encounter Start: 08-19-2023 End: 08-19-2023 ambulatory [facility] OB/Gynecology Start: 08-19-2023 End: 08-19-2023 Patient encounter procedure [employer] [facility] OB/Gynecology Start: 08-19-2023 Telephone encounter Sandra Nick mcmahan BOND TRADER.BLOOD TESTER FOWL Work Phone: OB/Gynecology Comment on above: Results Start: 08-18-2023 End: 08-18-2023 Patient encounter procedure Sandra Cole BOND TRADER.BLOOD TESTER FOWL Work Phone: OB/Gynecology Comment on above: Pelvic pain in femal e (Primary Dx); Intrauterine contraceptive device threads lost, initial encounter; Irregular bleeding Start: 08-17-2023 Refill Rachell Jackd en BOND TRADER.BLOOD TESTER FOWL Work Phone: [facility] Comment on above: Refill Request Start: 08-07-2023 Refill Dipti Freed DO Work Phone: Psychiatry Comment on above: Med Change Request Start: 07-31-2023 End: 07-31-2023 Patient encounter procedure Rachell Amador BOND TRADER.BLOOD TESTER FOWL Work Phone: [facility] Comment on above: Paroxysmal SVT (supr aventricular tachycardia) (HCC) (Primary Dx); Palpitations; Single subsegmental pulmonary embolism without acute cor pulmonale (HCC); On continuous oral anticoagulation; Engages in vaping Start: 07-24-2023 End: 07-24-2023 Patient encounter procedure Gino Valero BOND TRADER.CNM Work Phone: OB/Gynecology Comment on above: Surveillance of prev iously prescribed intrauterine contraceptive device (Primary Dx) Start: 07-15-2023 End: 07-15-2023 Patient encounter procedure Chantelle Low PA-C Work Phone: Pulmonary Medicine Comment on above: Vaping nicotine depe ndence, non-tobacco product (Primary Dx) Start: 07-14-2023 End: 07-14-2023 [facility] Dipti David Freed DO Work Phone: Psychiatry Comment on above: Panic disorder witho ut agoraphobia (Primary Dx); anxiety Start: 07-09-2023 End: 07-09-2023 ambulatory [facility] Start: 07-09-2023 End: 07-09-2023 Subsequent hospital visit by physician Tylor Edwards 1 [facility] Comment on above: Single subsegmental pulmonary embolism without acute cor pulmonale (Multi); Other pulmonary embolism without acute cor pulmonale (Multi) Palpitations Start: 07-08-2023 End: 07-08-2023 Postop follow up visit related to original px Alla Llanes MD Work Phone: [facility] Comment on above: Postoperative visit (Primary Dx) Start: 07-04-2023 Refill Dipti Freed DO Work Phone: Psychiatry Comment on above: Med Change Request Start: 07-02-2023 End: 07-02-2023 Patient encounter procedure Mitra Reed APRN.CNP Work Phone: [facility] Comment on above: Nausea and vomiting, unspecified vomiting type (Primary Dx); S/P cholecystectomy; Single subsegmental pulmonary embolism without acute cor pulmonale (HCC); Vapes nicotine containing substance Start: 07-02-2023 End: 07-02-2023 ambulatory MIKI JARAMILLO [facility] Start: 07-02-2023 End: 07-02-2023 Office outpatient new 60 minutes Miki Jaramillo MD Work Phone: [facility] Comment on above: Single subsegmental pulmonary embolism without acute cor pulmonale (Multi) Start: 06-26-2023 End: 06-26-2023 Patient encounter procedure Prabhu Ortez MD Work Phone: OB/Gynecology Comment on above: Abnormal uterine ble eding (AUB) (Primary Dx); Encounter for IUD insertion Start: 06-25-2023 End: 06-25-2023 Office outpatient new 45 minutes Norbert Noriega MD Work Phone: [facility] Comment on above: Palpitations (Primar y Dx); Single subsegmental pulmonary embolism without acute cor pulmonale (Multi); Smoking addiction Start: 06-24-2023 End: 06-24-2023 Emergency department patient visit RACHELL AMADOR [facility] Emergency Medicine Comment on above: Dysfunctional uterin e bleeding (Primary Dx); Post-op pain Start: 06-24-2023 ambulatory Lillian Rocha [facility] Comment on above: Patient Update Start: 06-24-2023 Patient encounter procedure Eugene Louie RN NURSE NURSERY MANAGER Comment on above: Clinical Update Start: 06-24-2023 Telephone encounter Prabhu brizuela MD Work Phone: OB/Gynecology Comment on above: Heavy Bleeding Start: 06-22-2023 End: 06-22-2023 Emergency department patient visit RACHELL AMADOR Facility:[facility] Start: 06-22-2023 End: 06-22-2023 Emergency department patient visit [facility] Work Phone: Start: 06-21-2023 End: 06-21-2023 Subsequent hospital visit by physician Tylor Lopes [facility] Comment on above: Arrived Start: 06-21-2023 End: 06-21-2023 ambulatory SATURNINO VELÁZQUEZ [facility] Start: 06-21-2023 End: 06-21-2023 Emergency department patient visit Saturnino Velázquez DO Work Phone: [facility] Comment on above: Single subsegmental pulmonary embolism without acute cor pulmonale (Multi) (Primary Dx) Start: 06-19-2023 End: 06-20-2023 Evaluation and management of inpatient Saturnino Velázquez DO Work Phone: [facility] 3 Comment on above: Acute post-operative pain (Primary Dx); Status post cholecystectomy; Vomiting and diarrhea Start: 06-18-2023 End: 06-18-2023 Emergency department patient visit Saturnino Gordy Velázquez DO Work Phone: [facility] Comment on above: Postoperative pain ( Primary Dx) Start: 06-17-2023 End: 06-17-2023 Subsequent hospital visit by physician Alla Llanes MD Work Phone: [facility] [place] Comment on above: Post-operative pain (Primary Dx); Symptomatic cholelithiasis Start: 06-12-2023 End: 06-12-2023 [employer] Dipti Freed DO Work Phone: Psychiatry Comment on above: Post depressi on (Primary Dx); Panic disorder without agoraphobia; PTSD (post-traumatic stress disorder) Start: 06-05-2023 Refill Dipti Freed DO Work Phone: Psychiatry Comment on above: Med Change Request Start: 06-04-2023 ambulatory [facility] Start: 06-03-2023 End: 06-03-2023 Office outpatient visit 25 minutes Alla Llanes MD Work Phone: [facility] Comment on above: Symptomatic cholelit hiasis (Primary Dx) Start: 06-03-2023 End: 06-03-2023 Patient encounter procedure Rachell Amador APRN.BLOOD TESTER FOWL Work Phone: [facility] Comment on above: Pain in the coccyx ( Primary Dx); Tailbone injury, initial encounter; Depression, unspecified depression type; Generalized anxiety disorder Start: 05-13-2023 End: 05-13-2023 [employer] Dipti Freed DO Work Phone: Psychiatry Comment on above: Panic disorder witho ut agoraphobia (Primary Dx); Episode of recurrent major depressive disorder, unspecified depression episode severity (HCC); Anxiety; PTSD (post-traumatic stress disorder); Post depression Start: 04-23-2023 End: 04-23-2023 Patient encounter procedure Gino Muhammadjadon LATHAM.CNM Work Phone: OB/Gynecology Comment on above: Spotting [...] Delivery Note Start: 12-13-2022 ambulatory [facility] [place] Comment on above: Population Health Na vigation Outreach (Peds/OB) Start: 12-03-2022 End: 12-03-2022 Patient encounter procedure Prabhu Ortez MD Work Phone: OB/Gynecology Comment on above: Encounter for superv ision of normal first in third trimester (Primary Dx); 36 weeks gestation of Start: 11-25-2022 Telephone encounter Logistics Supply Officer RN Obstetrics/Gynecology Comment on above: PRAF Start: 11-19-2022 End: 11-19-2022 Patient encounter procedure Prabhu Ortez MD Work Phone: OB/Gynecology Comment on above: care, subse quent in third trimester (Primary Dx); 34 weeks gestation of Start: 11-18-2022 End: 11-18-2022 Patient encounter procedure Jaquelin Hi APRN.CNLilly Work Phone: OB/Gynecology Comment on above: with prena lulu care elsewhere in third trimester (Primary Dx); 34 weeks gestation of Start: 10-24-2022 Telephone encounter Lianet chacon APRN.CNP Work Phone: Obstetrics/Gynecology Comment on above: Forms (praf) Start: 10-10-2022 ambulatory Lianet Heller APRNCONSUELO Work Phone: OB/Gynecology Comment on above: Received Outside Med [facility] Records Start: 10-09-2022 End: 10-09-2022 ambulatory [facility] Work Phone: Start: 10-09-2022 End: 10-09-2022 Patient encounter procedure [facility] [place] casting technician Off Start: 09-24-2022 End: 09-24-2022 ambulatory [facility] Work Phone: Start: 09-24-2022 End: 09-24-2022 Patient encounter procedure [facility] [place] casting technician Off Start: 08-29-2022 End: 08-29-2022 [facility] Start: 08-17-2022 End: 08-17-2022 [facility] Start: 07-12-2022 End: 07-12-2022 Emergency department patient visit Mauricio Reyes [facility] Emergency 06 Start: 05-24-2022 End: 05-24-2022 Patient encounter procedure [facility] [place] casting technician Off Start: 04-19-2022 End: 04-19-2022 ambulatory [facility] Work Phone: Start: 04-19-2022 End: 04-19-2022 [facility] [place] [facility] Start: 02-07-2022 End: 02-07-2022 ambulatory [facility] Work Phone: [facility] Work Phone: Start: 02-07-2022 End: 02-07-2022 Patient encounter procedure [facility] [place] [facility] Off Start: 12-12-2021 End: 12-12-2021 ambulatory [facility] Work Phone: Start: 12-12-2021 End: 12-12-2021 Patient encounter procedure [facility], [place] casting technician Off Start: 12-05-2021 End: 12-05-2021 ambulatory [facility] Work Phone: Start: 12-05-2021 End: 12-05-2021 Patient encounter procedure [facility]-Pulmonary Services/Neurology Start: 12-05-2021 Non-patient / Non-visit [facility] Work Phone: [facility] Start: 12-01-2021 End: 12-01-2021 ambulatory [facility] Work Phone: Start: 12-01-2021 End: 12-01-2021 Patient encounter procedure [facility]-Laboratory Start: 11-12-2021 End: 11-12-2021 Patient encounter procedure Leeann Ascencio BOND TRADER.[facility] Work Phone: [place] [employer] Comment on above: Burning with urinati on (Primary Dx); Exposure to HIV; Acute vaginitis Start: 10-31-2021 End: 10-31-2021 ambulatory [facility] Work Phone: Start: 10-31-2021 End: 10-31-2021 Patient encounter procedure [facility], [place] casting technician Off Start: 08-14-2021 End: 08-14-2021 Patient encounter procedure Steven Rojas BOND TRADER.[facility] Work Phone: [place] [facility] Comment on above: Screening for STD (s exually transmitted disease) (Primary Dx) Start: 05-24-2021 End: 05-24-2021 Patient encounter procedure [facility], [place] casting technician Off Start: 05-17-2021 End: 05-17-2021 Patient encounter procedure [facility], [place] casting technician Off Start: 03-21-2021 End: 03-21-2021 Emergency department patient visit Tatyana Michaels [facility] Emergency 05 Start: 08-07-2017 Ambulatory [facility] Start: 07-30-2017 Ambulatory [facility] Start: 07-29-2017 Ambulatory [facility] Start: 07-24-2017 Ambulatory [facility] Start: 07-11-2017 Ambulatory [facility] COHEN [facility] Start: 07-10-2017 Ambulatory [facility] Start: 07-01-2017 End: 07-01-2017 Ambulatory DUANE Modi [facility] Start: 06-19-2017 Ambulatory [facility] COHEN [facility] Start: 06-03-2017 Ambulatory [facility] Start: 05-01-2017 Ambulatory [facility]DEVENDRA COHEN [facility] Start: 04-15-2017 Ambulatory [facility]EL COHEN [facility] Start: 04-08-2017 Ambulatory [facility] Start: 03-10-2017 End: 03-11-2017 Emergency department patient visit SHEILA Baker [place] Start: 02-27-2017 Ambulatory [facility] Start: 02-27-2017 Ambulatory [facility] Start: 01-15-2017 Ambulatory [facility] Start: 12-30-2016 End: 12-31-2016 Emergency department patient visit [facility] Start: 11-19-2016 End: 11-19-2016 Emergency department patient visit Jessica Miranda Facility:[facility] Start: 09-13-2016 End: 09-13-2016 Emergency department patient visit [facility] Procedures Date Procedure Procedure Detail Performing Clinician Start: 09-28-2024 Urnls dip stick/tablet rgnt non-auto w/o micrscp Jaquelin Hi APRN.CNM Work Phone: Start: 2024 Urnls dip stick/tablet rgnt non-auto w/o micrscp Yamila Ballard MD Work Phone: Start: 09-19-2024 Measurement of pH in vaginal fluid specimen using nitrazine yellow for detection of rupture of amniotic membrane Rachell LIZARRAGA Work Phone: Comment on above: Amniotic fluid not present indicates No Rupture of FetalMembranes at time of specimen collection. Start: 09-09-2024 Culture bacterial quanttative colony count urine Rio Kelly DO Work Phone: Start: 09-09-2024 RAPID TOX SCREEN WITH RELEX Rio Kelly DO Work Phone: Start: 09-09-2024 Urinalysis, reagent strip without microscopy Rio Kelly DO Work Phone: Start: 09-09-2024 Measurement of pH in vaginal fluid specimen using nitrazine yellow for detection of rupture of amniotic membrane Rachell Queden BIOMETRICS SPECIALIST-C Work Phone: Comment on above: Amniotic fluid not present indicates No Rupture of FetalMembranes at time of specimen collection. Start: 09-08-2024 Urnls dip stick/tablet rgnt non-auto w/o micrscp Gino Valero APRN.CNM Work Phone: Start: 09-07-2024 Urnls dip stick/tablet reagent auto microscopy Rachell Queden BIOMETRICS SPECIALIST-C Work Phone: Start: 09-07-2024 Urnls dip stick/tablet rgnt non-auto w/o micrscp Yamila Ballard MD Work Phone: Start: 09-07-2024 Us preg uterus after 1st trimest 02/10 gestation Prabhu Ortez MD Work Phone: Start: 09-07-2024 Urine culture Rachell Queden BIOMETRICS SPECIALIST-C Work Phone: Start: 08-03-2024 Estimated creatinine clearance Rachell Queden BIOMETRICS SPECIALIST-C Work Phone: Start: 08-03-2024 Measurement of pH in vaginal fluid specimen using nitrazine yellow for detection of rupture of amniotic membrane Rachell Queden BIOMETRICS SPECIALIST-C Work Phone: Comment on above: Amniotic fluid not present indicates No Rupture of FetalMembranes at time of specimen collection. Start: 06-24-2025 Ecg routine ecg w/least 12 lds w/i&r Ramiro Hugo MD Work Phone: Start: 07-27-2024 Antibody screen RACHELL AMADOR Comment on above: Order Comment: Specimen Type: BLOOD SPEC IMENOrdering Facility: [facility] Address: [address] [place] [address] Performed By: #### T SPN ####CC MAIN BLOOD BANKCLIA [id number] [address] [place] Start: 06-01-2024 Us preg uterus after 1st trimest 02/10 gestation Jaquelinnaga Hi BOND TRADER.CNM Work Phone: Start: 04-07-2024 Us preg uterus after 1st trimest 02/10 gestation Jaquelin Hi APRN.CNM Work Phone: Start: 04-07-2024 Antibody screen RACHELL AMADOR Comment on above: Order Comment: Specimen Type: BLOOD SPEC IMENOrdering Facility: [facility] Address: [address] [place] [address] Performed By: #### T SPN ####CC MAIN BLOOD BANKCLIA [id number] [address] [place] Start: 03-09-2024 BACTERIAL VAGINOSIS NAAT Jaquelin Hi A BARRYN.CNM Work Phone: Start: 03-09-2024 Iadna chlamydia trachomatis amplified probe tq Jaquelin Hi APRN.CNM Work Phone: Start: 03-09-2024 Us uterus limited 1/> fetuses Jaquelinnaga Hi BOND TRADER.CNM Work Phone: Start: 03-09-2024 Microscopic observation [Identifier] in Cervix by Cyto stain Ramiro Hugo MD Work Phone: Start: 02-18-2024 Glucose quantitative blood xcpt reagent strip Interface Unspecifiedprovider Work Phone: Start: 02-18-2024 Glucose quantitative blood xcpt reagent strip Interface Unspecifiedprovider Work Phone: Start: 02-18-2024 Us preg uterus real time w/image dcmtn transvag Eugene Shukla Anny BOND TRADER-BLOOD TESTER FOWL Work Phone: Start: 02-18-2024 Blood typing serologic rh (d) Eugene Shukla Anny BOND TRADER-BLOOD TESTER FOWL Work Phone: Start: 02-18-2024 Comprehensive metabolic panel Eugene Shukla Ashaderkyle BOND TRADER-BLOOD TESTER FOWL Work Phone: Start: 02-18-2024 Urinalysis microscopic panel - Urine Qualitative by Automated Eugene Shukla Ashaderkyle BOND TRADER-BLOOD TESTER FOWL Work Phone: Start: 02-18-2024 Urine test visual color cmprsn meths Eugene Shukla Ashaderkyle BOND TRADER-BLOOD TESTER FOWL Work Phone: Start: 02-18-2024 Urnls dip stick/tablet reagent auto microscopy Eugene Shukla Ashaderkyle BOND TRADER-BLOOD TESTER FOWL Work Phone: Start: 01-27-2024 Ecg routine ecg [...] lds trcg only w/o i&r Ida Hutson BOND TRADER-BLOOD TESTER FOWL Work Phone: Start: 08-21-2023 Ecg routine ecg w/least 12 lds w/i&r Ramiro Hugo MD Work Phone: Start: 08-20-2023 UA DIP,URINE HCG (POC) Mary Jo Eastman MD Work Phone: Start: 08-19-2023 Us pelvic nonobstetric real-time image complete Sandra Cole APRN.BLOOD TESTER FOWL Work Phone: Start: 07-09-2023 Dup-scan xtr veins [...] 06-20-2023 Basic metabolic panel calcium total Bora De Jesus MD Work Phone: Start: 06-20-2023 FULL CODE [...] Ct abdomen & pelvis w/contrast material Eugene Nury DUFF-C Work Phone: Start: 06-19-2023 Basic metabolic [...] Start: 06-19-2023 EXTRA URINE EMERSON TUBE Eugene Velizdaniel DUFF-C Work Phone: Start: 06-19-2023 Urinalysis complete W Reflex Culture panel - Urine Eugene Nury DUFF-C Work Phone: Start: 06-19-2023 Urine test visual color cmprsn meths Eugene Nury PA-C Work Phone: Start: 06-19-2023 Urnls dip stick/tablet reagent auto microscopy Eugene Mancollins PA-C Work Phone: Start: 06-19-2023 Basic metabolic panel calcium total Eugene Nury PA-C Work Phone: Start: 06-18-2023 CBC W [...] stick/tablet rgnt auto w/o microscopy Leeann Ascencio BOND TRADER.BLOOD TESTER [employer]OWL Work Phone: Start: 08-14-2021 End: 08-14-2021 Urnls dip stick/tablet rgnt auto w/o microscopy Steven Rojas BOND TRADER.BLOOD TESTER [employer]OWL Work Phone: Start: 08-21-2018 Adult depression screening assessment Steven Rojas BOND TRADER.BLOOD TESTER FOWL Work Phone: History of cholecystectomy Status post cholecystectomy Saturnino Velázquez DO Work Phone: History of cholecystectomy S/P cholecystectomy Mitra Reed BOND TRADER.BLOOD TESTER [employer]OWL Work Phone: History of cholecystectomy Status post laparoscopic cholecystectomy Conor Duarte MD Work Phone: History of cholecystectomy Status post laparoscopic cholecystectomy Faiza Mishra BOND TRADER.BLOOD TESTER FOWL Work Phone: History of cholecystectomy Status post laparoscopic cholecystectomy Rachell Amador BIOMETRICS SPECIALIST-C Work Phone: Plan of Treatment Date Care Activity Detail Author Start: 2077 RSV High Risk: (Elderly (60+) or Population) (1 - 1-dose 75+ series) RSV High Risk: (Elderly (60+) or Population) (1 - 1-dose 75+ series) [facility] Start: 2077 RSV VACCINE (1 - 1-dose 75+ series) RSV VACCINE (1 - 1-dose 75+ series) [facility] Start: 2052 Zoster Vaccines (1 of 2) Zoster Vaccines (1 of 2) [facility] Start: 07-27-2034 DTaP/Tdap/Td Vaccines (11 - Td or Tdap) DTaP/Tdap/Td Vaccines (11 - Td or Tdap) [facility] Start: 07-27-2034 Tetanus vaccination TETANUS [facility] Start: 07-27-2034 Urine microalbumin profile DTaP,Tdap,Td Vaccine (11 - Td or Tdap) [facility] Start: 11-05-2032 DTaP/Tdap/Td Vaccines (10 - Td or Tdap) DTaP/Tdap/Td Vaccines (10 - Td or Tdap) [facility] Start: 11-05-2032 Urine microalbumin profile [facility] Start: 07-11-2027 Urine microalbumin profile [facility] Start: 03-09-2027 Screening for malignant neoplasm of cervix [facility] Start: 2025 GC (Gonorrhea) Screening (18-24) GC (Gonorrhea) Screening (18-24) [facility] Start: 2025 Screening for Chlamydia trachomatis Chlamydia Screening (18) [facility] Start: 04-07-2025 Diabetes mellitus screening Diabetes Screening [facility] Start: 03-09-2025 GC (Gonorrhea) Screening (18-24) GC (Gonorrhea) Screening (18-24) [facility] Start: 03-09-2025 Screening for Chlamydia trachomatis Chlamydia Screening (18) [facility] Start: 02-17-2025 Diabetes mellitus screening Diabetes Screening [facility] Start: 12-25-2024 Meningococcal B Vaccine (1 of 2 - Standard) Meningococcal B Vaccine (1 of 2 - Standard) [facility] Comment on above: Postponed from 2018 (Declined at t his time) Start: 12-25-2024 Meningococcal B Vaccine: Consider Based On Risk (1 of 2 - Patient Seeks Protection) Meningococcal B Vaccine: Consider Based On Risk (1 of 2 - Patient Seeks Protection) [facility] Comment on above: Postponed from 2018 (Declined at t his time) Start: 11-23-2024 End: 11-23-2024 Patient encounter procedure 11/23/2024 3:30 PM EDT Office Visit [facility] [address] [facility] 2nd [place] [address] Ramiro Hugo MD 4[address] [facility] 3, [address] [address] [facility] Start: 11-23-2024 GC (Gonorrhea) Screening (18-24) GC (Gonorrhea) Screening (18-24) [facility] Start: 11-23-2024 Screening for Chlamydia trachomatis Chlamydia Screening (18) [facility] Start: 11-04-2024 End: 11-04-2024 Follow-up encounter 11/04/2024 11:20 AM EDT [facility] BLOOD MANAGEMENT [address] [place] [address] Nayely Gil PA-C [address] [place], [place] [phone] 7 week follow-up BLOOD MANAGEMENT Comment on above: 7 week follow-up Start: 10-14-2024 End: 10-14-2024 Patient encounter procedure 10/14/2024 9:20 AM EDT Office Visit OB/Gynecology [address] [place], [place] [phone] Yamila Ballard MD [address] [place], [place] [phone] 1 week incision check OB/Gynecology Comment on above: 1 week incision check Start: 10-11-2024 Influenza vaccination [facility] Start: 10-07-2024 ambulatory Ambulatory Facility:[facility] Start: 10-02-2024 Diabetes mellitus screening Diabetes Screening [facility] Start: 09-28-2024 End: 12-28-2024 Protein/Creatinine [Mass Ratio] in Urine PROTEIN / CREATININE RATIO Lab Routine Supervision of high risk in third trimester (HCC) 37 weeks gestation of (HCC) headache in third trimester (HCC) Expected: 09/28/2024, Expires: 12/28/2024 [facility] Work Phone: Comment on above: Expected: 09/28/2024, Expires: Start: 09-28-2024 End: 09-28-2024 Patient encounter procedure 09/28/2024 11:15 AM EDT Routine Office Visit OB/Gynecology [address] [place], [place] [id number] Jaquelin Hi APRN.CN [address] [place], [place] [phone] OB OB/Gynecology Comment on above: OB Start: 2024 End: 2024 Patient encounter procedure 2024 10:10 AM EDT Routine Office Visit OB/Gynecology [address] [place] [address] Yamila Ballard MD [address] [place] [address] OB Pre Op C/S 10/07 @ [facility] OB/Gynecology Comment on above: OB Pre Op C/S 10/07 @ [facility] Start: 09-19-2024 Nonstress test [facility] Start: 09-19-2024 Obstetric monitoring [facility] Start: 09-19-2024 Vital signs measurements [facility] Start: 09-19-2024 [facility] Start: 09-17-2024 End: 09-17-2024 Patient encounter procedure 09/17/2024 10:00 AM EDT Routine Office Visit OB/Gynecology [address] [place] [address] Jaquelin Hi APRN.CN [address] [place] [address] OB OB/Gynecology Comment on above: OB Start: 09-16-2024 End: 09-16-2024 Follow-up encounter 09/16/2024 11:00 AM EDT [facility] BLOOD MANAGEMENT [address] [place] [address] Nayely Gil PA-C [address] [place], [place] [phone] 6 week follow-up BLOOD MANAGEMENT Comment on above: 6 week follow-up Start: 09-13-2024 End: 12-13-2024 CBC W Auto Differential panel - Blood COMPLETE BLOOD COUNT AND DIFFERENTIAL Lab Routine Maternal iron deficiency anemia complicating , third trimester (HCC) Expected: 09/13/2024 (Approximate), Expires: 12/13/2024 [facility] Work Phone: Comment on above: Expected: 09/13/2024 (Approximate), Expi res: 12/13/2024 Start: 09-13-2024 End: 12-13-2024 Ferritin [Mass/volume] in Serum or Plasma FERRITIN Lab Routine Maternal iron deficiency anemia complicating , third trimester (HCC) Expected: 09/13/2024 (Approximate), Expires: 12/13/[address] [facility] Comment on above: Expected: 09/13/2024 (Approximate), Expi res: 12/13/2024 Start: 09-13-2024 End: 12-13-2024 Iron and Iron binding capacity panel - Serum or Plasma IRON AND TIBC Lab Routine Maternal iron deficiency anemia complicating , third trimester (HCC) Expected: 09/13/2024 (Approximate), Expires: 12/13/[address] [facility] Comment on above: Expected: 09/13/2024 (Approximate), Expi res: 12/13/2024 Start: 09-13-2024 End: 09-13-2024 ambulatory 09/13/2024 12:00 PM EDT Results Only [facility] [address] [place] [address] [facility] Start: 09-09-2024 Nonstress test [facility] Start: 09-09-2024 Obstetric monitoring [facility] Start: 09-09-2024 [facility] Start: 09-09-2024 Vital signs measurements [facility] Start: 09-09-2024 Patient discharge [facility] Start: 09-08-2024 [facility] Start: 09-07-2024 Nonstress test [facility] Start: 09-07-2024 Obstetric monitoring [facility] Start: 09-07-2024 Vital signs measurements [facility] Start: 09-07-2024 [facility] Start: 09-07-2024 End: 09-07-2024 Patient encounter procedure 09/07/2024 2:30 PM EDT Routine Office Visit OB/Gynecology [address] [place] [address] Chantelle Mann MD [address] [place] [address] Growth/OB OB/Gynecology Comment on above: Growth/OB Start: 09-07-2024 Bacteria identified in Urine by Culture Urine Culture [facility] Start: 09-07-2024 Urine culture [facility] Start: 09-07-2024 End: 09-07-2024 Patient encounter procedure OB/Gynecology Comment on above: OB Growth Start: 09-04-2024 End: 09-04-2024 ambulatory 09/04/2024 11:30 AM EDT Results Only [facility] [address] [place] [address] [facility] Start: 08-24-2024 End: 08-24-2025 OBSTETRIC ULTRASOUND WHI OBSTETRIC ULTRASOUND WHI Anc Imaging Routine History of shoulder dystocia in prior Expected: 08/24/2024, Expires: 08/24/2025 [facility] Work Phone: Comment on above: Expected: 08/24/2024, Expires: Start: 08-24-2024 End: 08-24-2024 ambulatory 08/24/2024 1:30 PM EDT [facility] [address] [place] [address] VenLouise kiser, AJ INF[facility]ION Comment on above: Louise Muñoz AJ Start: 08-24-2024 End: 08-24-2024 Patient encounter procedure 08/24/2024 10:30 AM EDT Routine Office Visit OB/Gynecology [address] [place] [address] Prabhu Ortez MD [address] [place] [address] OB OB/Gynecology Comment on above: OB Start: 08-20-2024 End: 08-20-2024 ambulatory 08/20/2024 2:30 PM EDT Infusion [facility] [address] [place] [address] Venofer, Torchia, AJ INFUSION Comment on above: Louise Muñoz AJ Start: 08-17-2024 End: 08-17-2024 ambulatory 08/17/2024 2:30 PM EDT [facility]fusion [facility] [address] [place] [address] Louise Muñoz AJ INFUSION Comment on above: Louise Muñoz AJ Start: 08-17-2024 GC (Gonorrhea) Screening (18-24) GC (Gonorrhea) Screening (18-24) [facility] Start: 08-17-2024 Screening for Chlamydia trachomatis Chlamydia Screening (18-) [facility] Start: 08-12-2024 End: 08-12-2024 ambulatory 08/12/2024 2:30 PM EDT Infusion Center [facility] [address] [place] [address] Louise Muñoz AJ INFUSION Comment on above: Louise Muñoz AJ Start: 08-10-2024 End: 08-10-2024 Patient encounter procedure 08/10/2024 11:20 AM EDT Routine Office Visit OB/Gynecology [address] [place] [address] Prabhu Ortez MD [address] [place] [address] OB OB/Gynecology Comment on above: OB Start: 08-09-2024 Influenza vaccination Influenza Vaccine (#1) [facility] Comment on above: Postponed from 10/12/2023 (Declined at t his time) Start: 08-05-2024 End: 08-05-2024 Patient encounter procedure 08/05/2024 11:00 AM EDT [facility]NAGEMENT [address] [place] [address] Nayely Gil PA-C [address] [place], [place] [phone] new anemia BLOOD MANAGEMENT Comment on above: new anemia Start: 08-03-2024 Nonstress test [facility] Start: 08-03-2024 Obstetric monitoring [facility] Start: 08-03-2024 Vital signs measurements [facility] Start: 08-03-2024 [facility] Start: 08-03-2024 End: 08-03-2024 Patient encounter procedure 08/03/2024 11:45 AM EDT Office Visit [facility] [address] [facility] 2nd [place] [address] Ramiro Hugo MD [address] [facility] 3, [place] [phone] [facility] Start: 08-03-2024 Patient discharge [facility] Start: 06-29-2024 End: 06-29-2024 Patient encounter procedure 06/29/2024 1:15 PM EDT Routine Office Visit OB/Gynecology [address] [place] [address] Jaquelin Hi APRN.CNM [address] [place] [address] OB OB/Gynecology Comment on above: OB Start: 06-25-2024 GC (Gonorrhea) Screening (18-24) GC (Gonorrhea) Screening (18-24) [facility] Start: 06-25-2024 Screening for Chlamydia trachomatis Chlamydia Screening (18-24) [facility] Start: 06-01-2024 End: 06-01-2024 Patient encounter procedure [facility] Comment on above: Anatomy Scan OB Routine Start: 05-04-2024 End: 05-04-2024 Patient encounter procedure 05/04/2024 2:30 PM EDT Routine Office Visit OB/Gynecology [address] [place] [address] Jaquelin Hi APRN.CNM [address] [place] [address] OB Routine OB/Gynecology Comment on above: OB Routine Start: 04-07-2024 End: 04-07-2024 Patient encounter procedure Maternal Medicine Comment on above: Nuchal OB Routine Start: 04-07-2024 End: 07-07-2024 CARRIER SCREEN, STANDARD [facility] Comment on above: Expected: 04/07/2024, Expires: Start: 04-07-2024 End: 07-07-2024 Chromosome 21 trisomy [Presence] in Blood or Tissue by Cytogenetics [facility] Comment on above: Expected: 04/07/2024, Expires: Start: 04-07-2024 End: 07-07-2024 HEMOGLOBIN EVALUATION CASCADE [facility] Work Phone: Comment on above: Expected: 04/07/2024, Expires: Start: 03-17-2024 End: 03-17-2024 FQHC visit new patient 03/17/2024 1:00 PM EST Visit (SP) Office Hematology/Oncology [address] [place] [address] Jimmy Carbajal DO [address] [place] [address] New patient Hematology/Oncology Comment on above: New patient Start: 03-09-2024 End: 06-08-2024 ANEMIA REFLEX PANEL ANEMIA REFLEX PANEL Lab Routine with uncertain dates, antepartum Expected: 03/09/2024, Expires: 06/08/2024 [facility] Work Phone: Comment on above: Expected: 03/09/2024, Expires: Start: 03-09-2024 End: 06-08-2024 Hemoglobin A1c in Blood HEMOGLOBIN A1C Lab Routine with uncertain dates, antepartum Expected: 03/09/2024, Expires: 06/08/[address] [facility] Comment on above: Expected: 03/09/2024, Expires: Start: 03-09-2024 End: 06-08-2024 Hepatitis B virus surface Ag [Presence] in Serum HEPATITIS B SURFACE ANTIGEN Lab Routine with uncertain dates, antepartum Expected: 03/09/2024, Expires: 06/08/[address] [facility] Comment on above: Expected: 03/09/2024, Expires: Start: 03-09-2024 End: 06-08-2024 Hepatitis C virus Ab [Presence] in Serum HEPATITIS C ANTIBODY IA WITH CONFIRMATION Lab Routine with uncertain dates, antepartum Expected: 03/09/2024, Expires: 06/08/[address] [facility] Comment on above: Expected: 03/09/2024, Expires: Start: 03-09-2024 End: 06-08-2024 HIV 1+2 Ab [Presence] in Serum or Plasma by Immunoassay HIV 1/2 COMBO WITH REFLEX TO DIFFERENTIATION Lab Routine with uncertain dates, antepartum Expected: 03/09/2024, Expires: 06/08/[address] [facility] Comment on above: Expected: 03/09/2024, Expires: Start: 03-09-2024 End: 03-09-2025 OBSTETRIC ULTRASOUND WHI OBSTETRIC ULTRASOUND WHI Anc Imaging Routine with uncertain dates, antepartum Expected: 03/09/2024, Expires: 03/09/[address] [facility] Comment on above: Expected: 03/09/2024, Expires: Start: 03-09-2024 End: 06-08-2024 RUBELLA IGG ANTIBODY RUBELLA IGG ANTIBODY Lab Routine with uncertain dates, antepartum Expected: 03/09/2024, Expires: 06/08/[address] [facility] Comment on above: Expected: 03/09/2024, Expires: Start: 03-09-2024 End: 06-08-2024 SYPHILIS TREPONEMAL W/REFLEX SYPHILIS TREPONEMAL W/REFLEX Lab Routine with uncertain dates, antepartum Expected: 03/09/2024, Expires: 06/08/[address] [facility] Comment on above: Expected: 03/09/2024, Expires: Start: 03-09-2024 End: 06-08-2024 TYPE + SCREEN TYPE + SCREEN Blood Bank Routine with uncertain dates, antepartum Expected: 03/09/2024, Expires: 06/08/[address] [facility] Comment on above: Expected: 03/09/2024, Expires: Start: 03-09-2024 End: 03-09-2024 Patient encounter procedure 03/09/2024 1:00 PM EST Initial Office Visit OB/Gynecology [address] [place] [address] Jaquelin Hi APRN.CNM [address] [place] [address] New OB LMP 01/06 OB/Gynecology Comment on above: New OB LMP 01/06 Start: 02-03-2024 End: 02-03-2024 Patient encounter procedure 02/03/2024 9:40 AM EST Office Visit OB/Gynecology [address] [place] [address] Prabhu Ortez MD [address] [place] [address] ANNUAL OB/Gynecology Comment on above: ANNUAL Start: 01-27-2024 End: 01-27-2024 Patient encounter procedure 01/27/2024 11:00 AM EST Office Visit [facility] 3 [address] [facility] [address] [phone] Ramiro Hugo MD 65[address] [facility] 3, [facility] [address] [place] [address] [facility] 3 Start: 12-26-2023 End: 12-26-2023 Patient encounter procedure 12/26/2023 10:00 AM EST Office Visit [facility] [address] [place] [address] Rachell Amador, BOND TRADER.BLOOD TESTER [address] [place] [address] [facility] Comment on above: [facility] Start: 12-10-2023 End: 12-10-2023 Patient encounter procedure 12/10/2023 1:15 PM EDT Office Visit [facility] [address]nd [place] [address] [place] [address] [facility] [address] [place], [place] [phone] [facility] Start: 11-27-2023 End: 11-27-2023 Patient encounter procedure 11/27/2023 2:20 PM EDT Office Visit [facility] [address] [place] [address] Rachell Amador, BOND TRADER.BLOOD TESTER [address] [place] [address] [facility] Comment on above: [place] Start: 11-05-2023 End: 11-05-2023 Patient encounter procedure 11/05/2023 11:00 AM EDT Office Visit [facility] Office [address] [place] [address] Miki Jaramillo MD 350 [facility] H[facility]1 [place], [place] [phone] [facility] Office [facility] Start: 10-16-2023 End: 10-16-2023 Admission to same day surgery center 10/16/2023 7:00 AM EDT [facility] G[facility] [address] [place] [address] Faiza Mishra, BOND TRADER.BLOOD TESTER FOWL [address] [facility] [place] [address] [facility] for GI for that they can manage her diarrhea. Gastroenterology Comment on above: Per Dr. Duarte [facility] consult for GI for that they can manage her diarrhea. Start: 10-12-2023 Covid-19 Vaccine () Covid-19 Vaccine ( season) [facility] Start: 10-12-2023 Covid-19 Vaccine ( season) Covid-19 Vaccine ( season) [facility] Start: 10-12-2023 Influenza vaccination [facility] Start: 10-03-2023 End: 10-03-2023 Admission to same day surgery center 10/03/2023 8:00 AM EDT - 10/03/2023 12:00 PM EDT Surgery [facility] [address] [place] [phone] Ramiro Hugo MD 65[address] [facility] 3, [address] [phone] Ablation SVT (608[address]) [38127 (CPT )] [facility] Comment on above: Ablation SVT (04544) [82460 (CPT )] Start: 10-03-2023 Subsequent hospital visit by physician 10/03/2023 8:00 AM EDT Hospital Encounter [facility] [address] [place] [phone] Ramiro Hugo MD 77[address] [facility] 3, [address] [phone] SVT (supraventricular tachycardia) ([facility]) [facility] Comment on above: SVT (supraventricular tachycardia) (CMS- HCC) Start: 09-29-2023 End: 09-29-2023 Patient encounter procedure 09/29/2023 2:30 PM EDT Office Visit General Surgery [address] [place], [place] [phone] Conor Duarte MD [address] [place] [address] Functional diarrhea General Surgery Comment on above: Functional diarrhea Start: 09-24-2023 End: 09-24-2023 Patient encounter procedure 09/24/2023 11:45 AM EDT Office Visit [facility] [address] [place] [address] 2nd [place] [address] Norbert Herndon MD [address] [place] [address] [address] [place] [address] [facility] Start: 09-23-2023 Screening for malignant neoplasm of cervix [facility] Start: 09-15-2023 End: 09-15-2023 Admission to same day surgery center [facility] Surgery Comment on above: LAPAROSCOPY DIAGNOSTIC, Removal of IUD LAPAROSCOPY DIAGNOST IC Start: 09-15-2023 End: 09-15-2023 Laps abd prtm&omentum dx w/wo spec br/wa spx [facility] Start: 09-15-2023 End: 09-15-2023 Removal intrauterine device iud REMOVAL INTRAUTERINE DEVICE Malpositioned intrauterine device (IUD), sequela 09/15/2023 8:30 AM EDT ME OR Start: 09-15-2023 Subsequent hospital visit by physician [facility] Surgery Comment on above: Malpositioned intrauterine device (IUD), sequela [T83.32XS] Start: 09-12-2023 End: 09-12-2023 Patient encounter procedure 09/12/2023 10:40 AM EDT Office Visit OB/Gynecology [address] [place] [address] Mary Jo Chance MD [address] [place] [address] Pre Op Surgery 09/14 @ [facility] OB/Gynecology Comment on above: Pre Op Surgery 09/14 @ [place] [facility] Start: 09-03-2023 End: 09-03-2023 Patient encounter procedure 09/03/2023 2:30 PM EDT Office Visit [facility] [address] [place] [address] Norbert Herndon MD [address] [place] [address] [address] [place] [address] [facility] Start: 09-01-2023 End: 09-01-2023 Anesthesia consultation 09/01/2023 9:20 AM EDT PAT Pre Anesthesia [address] [place] [address] 1, [address] [place] [address] LAPAROSCOPY DIAGNOSTIC Pre Anesthesia Comment on above: LAPAROSCOPY DIAGNOSTIC Start: 08-25-2023 End: 08-25-2023 Patient encounter procedure 08/25/2023 11:00 AM EDT Appointment [facility] [address] [place] [address] Echo [facility] Comment on above: Echo Start: 08-21-2023 End: 08-20-2024 Basic metabolic 2000 panel - Serum or Plasma Basic Metabolic Panel Lab Routine SVT (supraventricular tachycardia) ([facility]) Expected: 08/21/2023 (Approximate), Expires: 08/20/2024 [facility] Service Area Work Phone: Comment on above: Expected: 08/21/2023 (Approximate), Expi res: 08/20/2024 Start: 08-21-2023 End: 08-20-2024 CBC panel - Blood by Automated count CBC Lab Routine SVT (supraventricular tachycardia) ([facility]) Expected: 08/21/2023 (Approximate), Expires: 08/20/2024 [facility] Work Phone: Comment on above: Expected: 08/21/2023 (Approximate), Expi res: 08/20/2024 Start: 08-20-2023 End: 08-20-2023 Patient encounter procedure 08/20/2023 12:45 PM EDT Appointment [facility] [address] [facility] [place] [address] [facility]IO PULMONARY TESTING Comment on above: Echo Start: 08-20-2023 End: 08-20-2023 Patient encounter procedure 08/20/2023 9:20 AM EDT Office Visit OB/Gynecology [address] [place] [address] Mary Jo Chance MD [address] [place] [address] Endosee for IUD Removal OB/Gynecology Comment on above: Endosee for IUD Removal Start: 08-20-2023 End: 08-20-2023 Patient encounter procedure 08/20/2023 12:45 AM EDT Appointment [facility] [address] [facility] [place] [address] Echo [facility] Comment on above: Echo Start: 08-19-2023 End: 08-19-2023 Manual pelvic examination 08/19/2023 2:30 PM EDT Procedure OB/Gynecology [address] [place] [phone] Pelvic pain in female [R10.2]; Intrauterine contraceptive [...] encounter Irregular bleeding Expected: 08/18/2023, Expires: 08/17/2024 [facility] Work Phone: Comment on above: Expected: 08/18/2023, Expires: Start: 07-24-2023 End: 07-24-2023 Patient encounter procedure 07/24/2023 10:45 AM EDT Office Visit OB/Gynecology [address] [place] [phone] Gino Valero APRN.CN [address] [place] [address] follow up OB/Gynecology Comment on above: follow up Start: 07-15-2023 End: 07-15-2023 Patient encounter procedure 07/15/2023 9:30 AM EDT Office Visit Pulmonary Medicine [address] [place], [place] [address] Chantelle Low PA-C [address] [place] [address] Pulmonary Medicine Start: 07-10-2023 End: 07-10-2023 Patient encounter procedure 07/10/2023 11:15 AM EDT Office Visit [facility] [address] [facility] [address] [place] [phone] Alla Llanes MD [address] [facility], [facility] [address] [place] [address] [facility] Start: 07-09-2023 End: 07-09-2023 ambulatory 07/09/2023 2:30 PM EDT [facility] [address] [facility] [address] [place] [address] Dipti Freed, [address] [place] [address] med check Psychiatry Comment on above: med check Start: 07-09-2023 End: 07-09-2023 Patient encounter procedure [facility] Start: 07-08-2023 End: 07-08-2023 Patient encounter procedure 07/08/2023 11:00 AM EDT Office Visit [facility] [address] [facility] [address] [place] [id number] Alla Llanes MD [address] [facility], [facility] [address] [place] [address] [facility] Start: 07-02-2023 End: 07-01-2024 F5 gene [id number] [Presence] in Blood or Tissue by Molecular genetics method Factor V Leiden Lab Routine Single subsegmental pulmonary embolism without acute cor pulmonale (Multi) Expected: 07/02/2023 (Approximate), Expires: 07/01/2024 [facility] Work Phone: Comment on above: Expected: 07/02/2023 (Approximate), Expi res: 07/01/2024 Start: 07-02-2023 End: 07-01-2024 Prothrombin Gene Mutation Prothrombin Gene Mutation Lab Routine Single subsegmental pulmonary embolism without acute cor pulmonale (Multi) Expected: 07/02/2023 (Approximate), Expires: 07/01/2024 [facility] Work Phone: Comment on above: Expected: 07/02/2023 (Approximate), Expi res: 07/01/2024 Start: 07-02-2023 End: 07-02-2023 Patient encounter procedure [facility] Comment on above: ER follow up Start: 06-26-2023 End: 06-26-2023 Patient encounter procedure 06/26/2023 1:20 PM EDT Office Visit OB/Gynecology [address] [place] [address] Prabhu Ortez MD [address] [place] [address] ER follow [facility] 06/24/23 OB/Gynecology Comment on above: ER follow [facility] 06/24/23 Start: 06-25-2023 End: 06-24-2025 Holter monitor study Holter [facility] [employer] [facility] Routine Palpitations Expected: 06/25/2023 (Approximate), Expires: 06/24/2025 [facility] Work Phone: Comment on above: Expected: 06/25/2023 (Approximate), Expi res: 06/24/2025 Start: 06-25-2023 End: 06-24-2025 US.doppler Lower extremity vein - bilateral Vascular US Lower Extremity Venous Duplex Bilateral Vascular Ultrasound Routine Single subsegmental pulmonary embolism without acute cor pulmonale (Multi) Expected: 06/25/2023 (Approximate), Expires: 06/24/2025 [facility] Work Phone: Comment on above: Expected: 06/25/2023 (Approximate), Expi res: 06/24/2025 Start: 06-25-2023 End: 06-25-2023 Patient encounter procedure 06/25/2023 1:45 PM EDT Office Visit [facility] [address] [place] [address] [place] [address] [facility] [address] [place], [place] [id number] [facility] Start: 06-22-2023 Blood chemistry [facility] Start: 06-22-2023 Plain chest X-ray Chest 1 View (Portable) [facility] Start: 06-22-2023 [facility] Start: 06-17-2023 Subsequent hospital visit by physician 06/17/2023 Hospital Encounter [facility] [place] [address] [place] [address] Alla Llanes MD [address] [facility], [address] [place] [address] [facility] [place] Start: 06-12-2023 End: 06-12-2023 ambulatory 06/12/2023 10:30 AM EDT [facility] [address] [facility] [address] [place] [address] Dipti Freed, [address] [place], [place] [id number] [facility] Comment on above: [facility] Start: 05-25-2023 CHLAMYDIA SCREENING (18-24) CHLAMYDIA SCREENING (18-24) [facility] Start: 05-25-2023 GC (GONORRHEA) SCREENING (18-24) GC (GONORRHEA) SCREENING (18-24) [facility] Start: 05-25-2023 Screening for Chlamydia trachomatis Chlamydia Screening (18-24) [facility] Start: 05-13-2023 End: 08-12-2023 Thyrotropin [Units/volume] in Serum or Plasma TSH BLD Lab Routine PTSD (post-traumatic stress disorder) Expected: 05/13/2023, Expires: 08/12/2023 [facility] Work Phone: Comment on above: Expected: 05/13/2023, Expires: 4 Start: 05-13-2023 End: 08-12-2023 Thyroxine (T4) free [Mass/volume] in Serum or Plasma T4 FREE/FREE THYROX Lab Routine PTSD (post-traumatic stress disorder) Expected: 05/13/2023, Expires: 08/12/2023 [facility] Work Phone: Comment on above: Expected: 05/13/2023, Expires: 4 Start: 05-13-2023 End: 08-12-2023 TOX SCREEN ROUT UR TOX SCREEN ROUT UR Lab Routine Episode of recurrent major depressive disorder, unspecified depression episode severity (HCC) Expected: 05/13/2023, Expires: 08/12/2023 [facility] Work Phone: Comment on above: Expected: 05/13/2023, Expires: 4 Start: 04-23-2023 End: 07-23-2023 CBC panel - Blood by Automated count CBC Lab Routine Spotting Expected: 04/23/2023, Expires: 07/23/2023 [facility] Work Phone: Comment on above: Expected: 04/23/2023, Expires: Start: 10-11-2022 Covid-19 Vaccine ( season) Covid-19 Vaccine ( season) [facility] Start: 10-11-2022 Influenza vaccination [facility] Start: 08-14-2022 CHLAMYDIA SCREENING () CHLAMYDIA SCREENING () [facility] Start: 08-14-2022 GC (GONORRHEA) SCREENING () GC (GONORRHEA) SCREENING () [facility] Start: 11-12-2021 End: 01-12-2022 HIV 1+2 Ab [Presence] in Serum or Plasma by Immunoassay HIV 1 2 COMBO(AG/AB),WITH REFLEX TO DIFFERENTIATION Lab Routine Exposure to HIV Expected: 11/12/2021, Expires: 01/12/2022 [facility] Work Phone: Comment on above: Expected: 11/12/2021, Expires: 2 Start: 10-11-2021 Influenza vaccination INFLUENZA (#1) [facility] Start: 08-15-2021 End: 10-15-2021 HIV 1+2 Ab [Presence] in Serum or Plasma by Immunoassay HIV 1 2 COMBO(AG/AB),WITH REFLEX TO DIFFERENTIATION Lab Routine Screening for STD (sexually transmitted disease) Expected: 08/15/2021, Expires: 10/15/2021 [facility] Work Phone: Comment on above: Expected: 08/15/2021, Expires: 2 Start: 08-14-2021 End: 10-14-2021 Chronic hepatitis differentiation between hepatitis B and C virus panel - Serum or Plasma [facility] Work Phone: Comment on above: Expected: 08/14/2021, Expires: 2 Start: 08-14-2021 End: 10-14-2021 Hepatitis C virus Ab [Presence] in Serum [facility] Work Phone: Comment on above: Expected: 08/14/2021, Expires: 2 Start: 08-14-2021 End: 10-14-2021 SYPHILIS TOTAL W/REFLEX [facility] Work Phone: Comment on above: Expected: 08/14/2021, Expires: 2 Start: 03-21-2021 End: 03-22-2022 Ondansetron Dispersible 4 mg Oral Tablet Once STAT ; Tablet, Disintegrating (ZOFRAN)DOSE = 4 mg Oral Once, PRN Nausea Start: 21-Mar-2021 End: 21-Mar-2022 Ordered: 21-Mar-2021 Tatyana Michaels [facility] Start: 2020 CHLAMYDIA SCREENING (18-24) CHLAMYDIA SCREENING (18-24) [facility] Start: 2020 Diabetes mellitus screening Diabetes Screening [facility] Start: 2020 GC (GONORRHEA) SCREENING (18-24) GC (GONORRHEA) SCREENING (18-24) [facility] Start: 2020 HEPATITIS C SCREENING HEPATITIS C SCREENING [facility] Start: 2020 Hepatitis C screening Hepatitis C Screening [facility] Start: 2020 HIV SCREENING HIV SCREENING [facility] Start: 08-22-2019 Adult depression screening assessment DEPRESSION SCREENING [facility] Start: 2018 Meningococcal B Vaccine (1 of 2 - Standard) Meningococcal B Vaccine (1 of 2 - Standard) [facility] Start: 2018 Meningococcal B Vaccine: Consider Based On Risk (1 of 2 - Patient Seeks Protection) Meningococcal B Vaccine: Consider Based On Risk (1 of 2 - Patient Seeks Protection) [facility] Start: 2018 MENINGOCOCCAL B: Consider based on risk (1 of 2 - Patient Seeks Protection) MENINGOCOCCAL B: Consider based on risk (1 of 2 - Patient Seeks Protection) [facility] Start: 2018 MENINGOCOCCAL CONJUGATE (2 - 2-dose series) MENINGOCOCCAL CONJUGATE (2 - 2-dose series) [facility] Start: 2018 Screening for Chlamydia trachomatis CHLAMYDIA SCREEN [facility] Start: 07-24-2018 Screening for Chlamydia trachomatis GONORRHEA SCREEN [facility] Start: 2017 HIV screening HIV SCREENING DISCUSSION [facility] Start: 2016 PEDS TO ADULT TRANSITION ANNUAL ASSESSMENT PEDS TO ADULT TRANSITION ANNUAL ASSESSMENT [facility] Start: 2014 PEDS TO ADULT TRANSITION INITIAL DISCUSSION PEDS TO ADULT TRANSITION INITIAL DISCUSSION [facility] Start: 2012 MENINGOCOCCAL B: Consider based on risk (1 of 2 - Risk Bexsero 2-dose series) MENINGOCOCCAL B: Consider based on risk (1 of 2 - Risk Bexsero 2-dose series) [facility] Start: 2008 Pneumococcal Vaccine: Pediatrics (0 to 5 Years) and At-Risk Patients (6 to 64 Years) (1 of 1 - PPSV23 or PCV20) Pneumococcal Vaccine: Pediatrics (0 to 5 Years) and At-Risk Patients (6 to 64 Years) (1 of 1 - PPSV23 or PCV20) [facility] Start: 08-13-2007 Hearing Screening (#1) Hearing Screening (#1) [facility] Start: 2005 Well Child Visit (WCV) - Annual Well Child Visit (WCV) - Annual [facility] Start: 03-25-2003 COVID-19 VACCINE (#1) COVID-19 VACCINE (#1) [facility] Start: 2002 Hearing Screening (#1) Hearing Screening (#1) [facility] Start: 2002 Hepatitis C screening HEPATITIS C VIRUS SCREENING [facility] Start: 2002 Lipid panel Lipid Panel [facility] Start: 2002 Yearly Adult Physical Yearly Adult Physical [facility] Anion gap measurement [facility] Bacteria identified in Urine by Culture URINE CULTURE Microbiology Routine Burning with urination 11/12/2021 7:35 PM EDT [facility] Work Phone: End: 06-24-2023 Bacteria identified in Urine by Culture [facility] Work Phone: Comment on above: Once (Lab) for 1 Occurrences starting until 06/24/2023 End: 02-18-2024 Bacteria identified in Urine by Culture [facility] Work Phone: Comment on above: Once (Lab) for 1 Occurrences starting until 02/18/2024 Bacteria identified in Urine by Culture BACTERIAL CULTURE, URINE Microbiology Routine with uncertain dates, antepartum 03/09/2024 2:20 PM [facility] Bacteria identified in Urine by Culture URINE CULTURE Microbiology Routine 09/09/2024 7:40 PM EDT [facility] BACTERIAL VAGINOSIS AMPLIFICATION BACTERIAL VAGINOSIS AMPLIFICATION Lab Routine Acute vaginitis 11/12/2021 7:41 PM EDT [facility] Work Phone: BACTERIAL VAGINOSIS NAAT BACTERI AL VAGINOSIS NAAT Lab Routine Pelvic pain in female 08/18/2023 8:44 AM EDT [facility] BACTERIAL VAGINOSIS NAAT BACTERI AL VAGINOSIS NAAT Lab Routine Vaginal discharge 11/24/2023 1:25 PM EDT [facility] BACTERIAL VAGINOSIS NAAT BACTERI AL VAGINOSIS NAAT Lab Routine Supervision of high risk in third trimester (HCC) Antepartum anemia complicating in third trimester ([facility]) 37 weeks gestation of ([facility]) Vaginal discharge during in third trimester ([facility]) 2024 3:02 PM EDT [facility] End: 09-09-2024 BETA STREP, VAGINAL SCREEN [facility] Work Phone: Comment on above: One Time for 1 Occurrences starting 08/12 until 09/09/2024 BUN/Creatinine ratio [facility] Calcium [Mass/volume ] in Serum or Plasma [facility] ALMITA / TRICHOMONA S AMPLIFICATION ALMITA / TRICHOMONAS AMPLIFICATION Lab Routine Screening for STD (sexually transmitted disease) Ordered: 08/14/2021 [facility] Work Phone: Comment on above: Ordered: 08/14/2021 ALMITA / TRICHOMONA S AMPLIFICATION ALMITA / TRICHOMONAS AMPLIFICATION Microbiology Routine Acute vaginitis 11/12/2021 7:41 PM EDT [facility] Work Phone: ALMITA/TRICHOMONAS NAAT ALMITA /TRICHOMONAS NAAT Lab Routine Pelvic pain in female 08/18/2023 8:44 AM EDT [facility] ALMITA/TRICHOMONAS NAAT ALMITA /TRICHOMONAS NAAT Lab Routine Vaginal discharge 11/24/2023 1:25 PM T [facility] Work Phone: ALMITA/TRICHOMONAS NAAT ALMITA /TRICHOMONAS NAAT Lab Routine Supervision of high risk in third trimester ([facility]) Antepartum anemia complicating in third trimester ([facility]) 37 weeks gestation of ([facility]) Vaginal discharge during in third trimester ([facility]) 2024 3:02 PM EDT [facility] Carbon dioxide, tota l [Moles/volume] in Serum or Plasma [facility] Chlamydia trachomatis+Neisseria gonorrhoeae DNA [Presence] in Unspecified specimen by SHYAM with probe detection GC/CHLAMYDIA DNA DET Lab Routine Screening for STD (sexually transmitted disease) Ordered: 08/14/2021 [facility] Work Phone: Comment on above: Ordered: 08/14/2021 Chlamydia trachomatis+Neisseria gonorrhoeae DNA [Presence] in Unspecified specimen by SHYAM with probe detection GONORRHEA/CHLAMYDIA NAAT Lab Routine Pelvic pain in female 08/18/2023 8:44 AM EDT [facility] Chlamydia trachomatis+Neisseria gonorrhoeae DNA [Presence] in Unspecified specimen by SHYAM with probe detection GONORRHEA/CHLAMYDIA NAAT Lab Routine Vaginal discharge 11/24/2023 1:25 PM EDT [facility] Chlamydia trachomatis+Neisseria gonorrhoeae DNA [Presence] in Unspecified specimen by SHYAM with probe detection GONORRHEA/CHLAMYDIA NAAT Lab Routine Supervision of high risk in third trimester ([facility]) History of pulmonary embolism History of shoulder dystocia in prior Abnormality in heart rate or rhythm, antepartum ([facility]) Antepartum anemia complicating in third trimester ([facility]) Irregular uterine contractions ([facility]) 37 weeks gestation of ([facility]) Vaginal discharge during in third trimester ([facility]) 2024 3:02 PM EDT [facility] Chloride [Moles/volu me] in Serum or Plasma [facility] End: 06-17-2023 Choriogonadotropin ( test) [Presence] in Urine hCG, Urine, Qualitative Lab STAT STAT (Lab) for 1 Occurrences starting 06/17/2023 until 06/17/2023 [facility] Work Phone: Comment on above: STAT (Lab) for 1 Occurrences starting until 06/17/2023 End: 10-03-2023 Choriogonadotropin ( test) [Presence] in Urine POCT Point of Care Testing STAT Once (Lab) for 1 Occurrences starting 10/03/2023 until 10/03/2023 [facility] Work Phone: Comment on above: Once (Lab) for 1 Occurrences starting until 10/03/2023 End: 06-19-2023 Clostridioides difficile toxin A+B tcdA+tcdB genes [Presence] in Stool by SHYAM with probe detection C. difficile, PCR Microbiology STAT STAT (Lab) for 1 Occurrences starting 06/19/2023 until 06/19/2023 [facility] Work Phone: Comment on above: STAT (Lab) for 1 Occurrences starting until 06/19/2023 Creatinine [Moles/vo lume] in Serum or Plasma [facility] End: 06-21-2023 ECG 12 lead [facility] Work Phone: Comment on above: Once for 1 Occurrences starting 06/21/19 until 06/21/2023 ECG 12 lead (Clinic Performed) ECG 12 lead (Clinic Performed) ECG Routine Atrial fibrillation, unspecified type (Multi) 01/27/2024 9:30 AM EST [facility] Work Phone: End: 07-30-2024 Echocardiography ECHO Cardiology Routine Paroxysmal SVT (supraventricular tachycardia) (HCC) Palpitations 1 Occurrences starting 07/31/2023 until 07/30/2024 [facility] Work Phone: Comment on above: 1 Occurrences starting 07/31/2023 until 07/30/2024 Electrocardiogram, 12-lead PRN ACS symptoms Electrocardiogram, 12-lead PRN ACS symptoms ECG Routine As needed until discontinued starting 06/19/2023 [facility] Work Phone: Comment on above: As needed until discontinued starting Electrocardiogram, 12-lead PRN ACS symptoms Electrocardiogram, 12-lead PRN ACS symptoms ECG Routine As needed until discontinued starting 06/20/2023 [facility] Work Phone: Comment on above: As needed until discontinued starting Erythrocyte mean corpuscular volume determination [facility] End: 06-18-2023 Extra Urine [employer] [facility] Work Phone: Comment on above: Once for 1 Occurrences starting 06/18/19 until 06/18/2023 End: 06-24-2023 Extra Urine [employer] [facility] Work Phone: Comment on above: Once for 1 Occurrences starting 06/24/19 until 06/24/2023 End: 02-18-2024 Extra Urine [employer] [facility] Work Phone: Comment on above: Once for 1 Occurrences starting 02/17/19 until 02/18/2024 Glucose [Mass/volume ] in Serum or Plasma POCT Glucose Point of Care Testing - Docked Device Routine As needed (Lab) until discontinued starting 06/17/2023 [facility] Work Phone: Comment on above: As needed (Lab) until discontinued start ing 06/17/2023 Glucose [Mass/volume ] in Serum or Plasma [facility] Hematocrit [Volume Fraction] of Blood [facility] Hemoglobin [Mass/vol ume] in Blood [facility] HIV 1+2 Ab [Presence ] in Serum or Plasma by Immunoassay HIV 1 2 COMBO(AG/AB),WITH REFLEX TO DIFFERENTIATION Lab Routine Screening for STD (sexually transmitted disease) 08/14/2021 12:16 PM EDT [facility] Work Phone: End: 07-09-2023 Holter monitor study [facility] Work Phone: Comment on above: Once for 1 Occurrences starting 07/09/19 24 until 07/09/2023 Insertion intrauteri ne device iud INSERT INTRAUTERINE DEVICE Procedures Routine Abnormal uterine bleeding (AUB) Ordered: 06/26/2023 [facility] Work Phone: Comment on above: Ordered: 06/26/2023 Laparoscopy surg cholecystectomy Cholecystectomy Laparoscopy Symptomatic cholelithiasis [facility] [place] Leukocytes [#/volume ] in Blood [facility] Mean corpuscular hemoglobin concentration determination [facility] Mean corpuscular hemoglobin determination [facility] Measurement of renal function [facility] Neutrophil count [facility] Neutrophil percent differential count [facility] PAP TEST PAP TEST Lab Rou tono with uncertain dates, antepartum Screening for cervical cancer Screening for human papillomavirus (HPV) 03/09/2024 2:20 PM EST [facility] Patient Education [facility] Work Phone: Patient referral [facility] Work Phone: Platelets [#/volume] in Blood [facility] Potassium [Moles/vol ume] in Serum or Plasma [facility] End: 10-03-2023 PT and aPTT panel - Platelet poor plasma by Coagulation assay Coagulation Screen Lab Routine Once (Lab) for 1 Occurrences starting 10/03/2023 until 10/03/2023 [facility] Work Phone: Comment on above: Once (Lab) for 1 Occurrences starting until 10/03/2023 Red blood cell count [facility] Red cell distributio n width determination [facility] Removal intrauterine device iud REMOVE INTRAUTERINE DEVICE Procedures Routine Ordered: 08/20/2023 [facility] Work Phone: Comment on above: Ordered: 08/20/2023 ROUTINE, GR OUP B STREP PCR ROUTINE, GROUP B STREP PCR Microbiology Routine 36 weeks gestation of 12/03/2022 3:17 PM EDT [facility] Work Phone: ROUTINE, GR OUP B STREPTOCOCCUS BY PCR ROUTINE, GROUP B STREPTOCOCCUS BY PCR Microbiology Routine Supervision of high risk in third trimester ([facility]) History of pulmonary embolism History of shoulder dystocia in prior Abnormality in heart rate or rhythm, antepartum ([facility]) Antepartum anemia complicating in third trimester ([facility]) Irregular uterine contractions ([facility]) 37 weeks gestation of ([facility]) 2024 3:02 PM EDT [facility] Work Phone: Sodium [Moles/volume ] in Serum or Plasma [facility] End: 06-19-2023 Stool Pathogen Panel, PCR Stool Pathogen Panel, PCR Microbiology STAT Once (Lab) for 1 Occurrences starting 06/19/2023 until 06/19/2023 [facility] Area Work Phone: Comment on above: Once (Lab) for 1 Occurrences starting until 06/19/2023 Surgical pathology study Surgica l Pathology Exam Pathology and Cytology Routine Symptomatic cholelithiasis Release Upon Ordering for 1 Occurrences starting 06/17/2023 [facility] Service Area Work Phone: Comment on above: Release Upon Ordering for 1 Occurrences starting 06/17/2023 Urea nitrogen [Mass/volume] in Serum or Plasma [facility] End: 06-18-2023 Urinalysis complete W Reflex Culture panel - Urine [facility] Service Area Work Phone: Comment on above: Once (Lab) for 1 Occurrences starting until 06/18/2023 End: 06-24-2023 Urinalysis complete W Reflex Culture panel - Urine [facility] Work Phone: Comment on above: Once (Lab) for 1 Occurrences starting until 06/24/2023 End: 02-18-2024 Urinalysis complete W Reflex Culture panel - Urine [facility] Work Phone: Comment on above: STAT (Lab) for 1 Occurrences starting until 02/18/2024 US.doppler Lower extremity vein - bilateral Vascular US Lower Extremity Venous Duplex Bilateral Vascular Ultrasound Routine Single subsegmental pulmonary embolism without acute cor pulmonale (Multi) Other pulmonary embolism without acute cor pulmonale (Multi) 07/09/2023 10:35 AM EDT [facility] Work Phone: End: 09-18-2024 XR Pelvis AP and Inlet and Outlet XR PELVIS 3V AP/INLET/OUTLET Radiology Routine Malpositioned IUD, sequela Pelvic pain in female 1 Occurrences starting 08/20/2023 until 09/18/[address] [facility] Comment on above: 1 Occurrences starting 08/20/2023 until 09/18/2024 XR Pelvis AP and Inl et and Outlet XR PELVIS 3V AP/INLET/OUTLET Radiology Routine Malpositioned IUD, sequela Pelvic pain in female 08/20/2023 10:18 AM EDT [facility] Immunizations Immunization Date Immunization Notes Care Provider Fa cili 07-27-2024 RHO(D) immune globul in- IV or IM Yamila Ballard MD Work Phone: [facility] 07-27-2024 tetanus toxoid, redu gerry diphtheria toxoid, and acellular pertussis vaccine, adsorbed Yamila Ballard MD Work Phone: [facility] 11-05-2022 tetanus toxoid, redu gerry diphtheria toxoid, and acellular pertussis vaccine, adsorbed Prabhu Ortez MD Work Phone: [facility] 05-17-2020 tetanus toxoid, redu gerry diphtheria toxoid, and acellular pertussis vaccine, adsorbed Mitra Reed APRN.[employer] Work Phone: [facility] 07-10-2017 tetanus toxoid, redu gerry diphtheria toxoid, and acellular pertussis vaccine, adsorbed Steven Rojas BOND TRADER.[facility] Work Phone: [facility] 10-08-2016 Human Papillomavirus 9-valent vaccine Steven Rojas APRN.[facility] Work Phone: [facility] Work Phone: 10-08-2016 influenza, injectabl e, quadrivalent, contains preservative Steven Rojas BOND TRADER.[facility] Work Phone: [facility] Work Phone: 10-08-2016 influenza virus vacc ine, unspecified formulation Lianet Heller APRN.[facility] Work Phone: [facility] 10-02-2015 hepatitis A vaccine, pediatric/adolescent dosage, 2 dose schedule Steven Rojas APRN.[facility] Work Phone: [facility] 10-02-2015 Human Papillomavirus 9-valent vaccine Steven Rojas APRN.[facility] Work Phone: [facility] 10-02-2015 meningococcal polysaccharide (groups A, C, Y and W-135) diphtheria toxoid conjugate vaccine (MCV4P) Setven Rojas BOND TRADER.[facility] Work Phone: [facility] 10-02-2015 tetanus toxoid, redu gerry diphtheria toxoid, and acellular pertussis vaccine, adsorbed Steven Rojas BOND TRADER.[facility] Work Phone: [facility] [facility] 09-15-2008 diphtheria, tetanus toxoids and acellular pertussis vaccine, 5 pertussis antigens Steven Rojas BOND TRADER.[employer] Work Phone: [facility] 09-15-2008 diphtheria, tetanus toxoids and acellular pertussis vaccine, unspecified formulation Mitra Reed BOND TRADER.[facility] Work Phone: [facility] 09-15-2008 hepatitis A vaccine, pediatric/adolescent dosage, 2 dose schedule Steven Rojas APRN.[facility] Work Phone: [facility] 09-15-2008 hepatitis A vaccine, unspecified formulation Mitra Reed BOND TRADER.[employer] Work Phone: [facility] 09-15-2008 measles, mumps and rubella virus vaccine Steven Carnesenedelia BOND TRADER.[employer] Work Phone: [facility] 09-15-2008 poliovirus vaccine, inactivated Steven Hassanleannenedelia BOND TRADER.[employer] Work Phone: [facility] 09-15-2008 poliovirus vaccine, unspecified formulation Mitra Tritemitope BOND TRADER.[employer] Work Phone: [facility] 09-15-2008 varicella virus vaccine Bartolome kevin Pendmasoud BOND TRADER.[employer] Work Phone: [facility] 05-07-2006 pneumococcal conjuga te vaccine, 13 valent Steven Sonyaleannenedelia BOND TRADER.[employer] Work Phone: [facility] 05-07-2006 pneumococcal conjuga te vaccine, 7 valent Mitra Reed BOND TRADER.[employer] Work Phone: [facility] 05-07-2006 varicella virus vaccine Bartolome kevin Rojas BOND TRADER.[employer] Work Phone: [facility] 11-14-2004 diphtheria, tetanus toxoids and acellular pertussis vaccine, 5 pertussis antigens Steven Triceenedelia BOND TRADER.[employer] Work Phone: [facility] 11-14-2004 diphtheria, tetanus toxoids and acellular pertussis vaccine, unspecified formulation Mitra Tritemitope BOND TRADER.[employer] Work Phone: [facility] 12-28-2003 haemophilus influenz ae type b vaccine, conjugate unspecified formulation Mitra Tritemitope BOND TRADER.[employer] Work Phone: [facility] 12-28-2003 haemophilus influenz ae type b vaccine, HbOC conjugate Steven Rojas BOND TRADER.[employer] Work Phone: [facility] 12-28-2003 measles, mumps and rubella virus vaccine Steven Hassanleannenedelia BOND TRADER.[employer] Work Phone: [facility] 12-28-2003 poliovirus vaccine, inactivated Steven Hassanleannenedelia BOND TRADER.[employer] Work Phone: [facility] 08-31-2003 diphtheria, tetanus toxoids and acellular pertussis vaccine, 5 pertussis antigens Steven Pendlebury BOND TRADER.[employer] Work Phone: [facility] 08-31-2003 diphtheria, tetanus toxoids and acellular pertussis vaccine, unspecified formulation Mitra Trill BOND TRADER.[employer] Work Phone: [facility] 08-31-2003 haemophilus influenz ae type b conjugate and Hepatitis B vaccine Mitra Trill BOND TRADER.[employer] Work Phone: [facility] 08-31-2003 haemophilus influenz ae type b vaccine, HbOC conjugate Steven Pendlebury BOND TRADER.[employer] Work Phone: [facility] 08-31-2003 hepatitis B vaccine, pediatric or pediatric/adolescent dosage Steven Pendlebury BOND TRADER.[employer] Work Phone: [facility] 08-31-2003 pneumococcal conjuga te vaccine, 13 valent Steven Pendlebury BOND TRADER.[employer] Work Phone: [facility] 08-31-2003 pneumococcal conjuga te vaccine, 7 valent Mitra Trill BOND TRADER.[employer] Work Phone: [facility] 03-21-2003 diphtheria, tetanus toxoids and acellular pertussis vaccine, 5 pertussis antigens Steven Pendlebury BOND TRADER.[employer] Work Phone: [facility] 03-21-2003 diphtheria, tetanus toxoids and acellular pertussis vaccine, unspecified formulation Mitra Trill BOND TRADER.[employer] Work Phone: [facility] 03-21-2003 haemophilus influenz ae type b vaccine, conjugate unspecified formulation Mitra Trill BOND TRADER.[employer] Work Phone: [facility] 03-21-2003 haemophilus influenz ae type b vaccine, HbOC conjugate Steven Pendlebury BOND TRADER.[employer] Work Phone: [facility] 03-21-2003 pneumococcal conjuga te vaccine, 13 valent Steven Pendlebury BOND TRADER.[employer] Work Phone: [facility] 03-21-2003 pneumococcal conjuga te vaccine, 7 valent Mitra Tritemitope BOND TRADER.[employer] Work Phone: [facility] 03-21-2003 poliovirus vaccine, inactivated Steven Pendleannenedelia BOND TRADER.[employer] Work Phone: [facility] 2002 diphtheria, tetanus toxoids and acellular pertussis vaccine, 5 pertussis antigens Steven Pendmasoud BOND TRADER.[employer] Work Phone: [facility] 2002 diphtheria, tetanus toxoids and acellular pertussis vaccine, unspecified formulation Mitra Trill BOND TRADER.[employer] Work Phone: [facility] 2002 haemophilus influenz ae type b vaccine, HbOC conjugate Steven Sonyayale [facility] BOND TRADER.[employer] Work Phone: [facility] 2002 hepatitis B vaccine, pediatric or pediatric/adolescent dosage Steven Pendlebury BOND TRADER.[employer] Work Phone: [facility] 2002 pneumococcal conjuga te vaccine, 13 valent Steven Triceyale [facility] BOND TRADER.[employer] Work Phone: [facility] 2002 poliovirus vaccine, inactivated Steven Hassanyale [facility] BOND TRADER.[employer] Work Phone: [facility] 2002 hepatitis B vaccine, pediatric or pediatric/adolescent dosage Steven Pendleannyale [facility] BOND TRADER.[employer] Work Phone: [facility] Payers Date Payer Category Payer Self-pay [id number] 2021 Medicaid (Managed Care) 1.2. 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 2007 Medicaid [facility] MEDICAID [id number] 2007-Present [phone] [address] [place] [address] Medicaid [id number] 2007 Medicaid [id number]. [id number] 2002 Unknown [id number] 2.16.840.1.758505.3.579.2. 1069 2002 Unknown [id number] 2.16.840.1.349570.3.579.2. 1245 2002 Unknown [id number] 2.16.840.1.806549.3.579.2. 1246 2002 Unknown [id number] 2.16.840.1.644094.3.579.2. 1246 2002 Unknown [id number] 2.16.840.1.049991.3.579.2. 1242 2002 Unknown [id number] 2.16.840.1.577847.3.579.2. 3 2002 Unknown [id number] 2.16.840.1.852163.3.579.2. 1242 2002 Unknown [id number] 2.16.840.1.531020.3.579.2. 124 2002 Unknown [id number] 2.16.840.1.843270.3.579.2. 1242 2002 Unknown [id number] 2.16.840.1.894148.3.579.2. 1242 2002 Unknown [id number] 2.16.840.1.567374.3.579.2. 124 2002 Unknown [id number] 2.16.840.1.995629.3.579.2. 1243 2002 Unknown [id number] 2.16.840.1.978035.3.579.2. 1243 2002 Unknown [id number] 2.16840.1.784749.3.579.2. 1243 2002 Unknown [id number] 2.16840.1.812716.3.579.2. 124 2002 Unknown [id number] 2.0.1.076280.3.579.2. 124 2002 Unknown [id number] 2.0.1.965201.3.579.2. 1243 2002 Unknown [id number] 2.0.1.195301.3.579.2. 1243 2002 Unknown [id number] 2.0.1.642193.3.579.2. 903 2002 Unknown [id number] 2.0.1.842263.3.579.2. 983 Unknown [id number] Unknown [id number] Unknown [id number] Unknown [id number] Unknown [id number] 2.0.1.581095.3.579.2. 462 Unknown [id number] 2.0.1.209692.3.579.2. 462 Unknown [id number] 2.0.1.711631.3.579.2. 462 Unknown [id number] 2.0.1.226285.3.579.2. 462 Unknown [id number] 2.0.1.376941.3.579.2. 462 Social History Date Type Detail Facility [facility] Start: 01-07-2021 End: 06-22-2023 Tobacco smoking consumption unknown [facility] Start: 2000 Sex Assigned At Female [facility] Start: 11-12-2021 End: 06-03-2023 Tobacco smoking status NHIS Never smoked tobacco [facility] Work Phone: Start: 08-14-2021 End: 09-09-2024 Alcohol intake Current non-drinker of alcohol (finding) [facility] Start: 10-29-2007 End: 11-12-2021 Tobacco Comment mom smokes outside [facility] Start: 2000 Sex Assigned At Not on file [facility] History of tobacco use Passive smoker [facility] Start: 11-12-2021 End: 06-03-2023 Tobacco use and exposure Smokeless tobacco non-user [facility] Start: 04-03-2022 [facility] Start: 08-11-2017 None [facility] Start: 08-18-2022 End: 10-10-2022 History of Social function [facility] Start: 08-18-2022 End: 10-10-2022 Tobacco use panel [facility] Start: 01-12-2012 Retired 03/11/2019 PHQ Score [address] [facility] Start: 06-03-2023 End: 09-03-2023 Tobacco smoking status NHIS Ex-smoker [facility] Work Phone: End: 02-10-2022 History of tobacco use Current smoker [facility] Work Phone: End: 02-10-2022 History of tobacco use Cigarette Smoker [facility] Work Phone: Start: 06-03-2023 End: 08-21-2023 Alcoholic beverage intake Lifetime non-drinker (finding) [facility] Work Phone: Start: 05-24-2023 End: 02-18-2024 Exposure to SARS-CoV-2 (event) Not sure [facility] Start: 06-03-2023 Tobacco Comment Vapes [facility] Start: 06-12-2023 End: 09-03-2023 Tobacco use and exposure User of smokeless tobacco [facility] Work Phone: How often to you hav e a drink containing alcohol? Never [facility] In the past 12 month s, was there a time when you were not able to pay the mortgage or rent on time? No [facility] Work Phone: Start: 06-24-2023 End: 07-02-2023 Tobacco smoking status NHIS Smokes tobacco daily [facility] Work Phone: Start: 07-02-2023 Tobacco Comment vape [facility] Work Phone: Start: 09-18-2023 End: 2024 Alcohol intake Ex-drinker (finding) [facility] Start: 03-05-2024 Education [address] [facility] Start: 08-19-2018 Gender identity Identifies as female gender (finding) [facility] Start: 03-05-2024 Sexual orientation Heterosexual (finding) [facility] Start: 02-16-2016 Sex Female (finding) [facility] Goals Date Patient Goal Desired Activity /State Personal health goal Personal health goal Personal health goal Functional Status Date Assessment Result Facility 09-09-2024 Are you deaf, or do you have serious difficulty hearing No 09/09/2024 7:47 PM Candy Coats, KELLI [facility] 09-09-2024 Are you blind, or do you have serious difficulty seeing, even when wearing glasses No 09/09/2024 7:47 PM Candy Coats, KELLI [facility] 09-09-2024 Do you have serious difficulty walking or climbing stairs No 09/09/2024 7:47 PM [facility]ats[facility]24 Do you have difficul ty dressing or bathing No 09/09/2024 7:47 PM Candy Coats, [facility]LLI [facility]-09-2024 Because of a physica l, mental, or emotional condition, do you have difficulty doing errands alone such as visiting a physician's office or shopping No 09/09/2024 7:47 PM Candy Coats, KELLI [facility] Mental Status Date Assessment Result Facility 09-09-2024 Because of a physica l, mental, or emotional condition, do you have serious difficulty concentrating, remembering, or making decisions No 09/09/2024 7:47 PM EDT Candy Chou RN [facility] 06-22-2023 Cognitive function Voice/Name [facility] Work Phone: Clinical Notes 07-01-2017 to 10-05-2024 Joyce Huston MA - 10/05/2024 11:54 AM EDTPrenatal Quick Notes - Jaquelin Hi APRN.CN - 09/28/2024 12:32 PM EDTPrenatal Quick Notes - Jaquelin Hi APRN.CN - 09/28/2024 12:32 PM EDT Note Date & Type Note Facility 10-05-2024 History of Present illness Narrative POPULATION HEALTH NAVIGATION OUTREACH Action/FYI Plc Technician updated per documentation. Reason for Outreach Medicaid OB/Peds Care Gaps due: N/A Patient Contacted: Unable or unnecessary to reach patient: [place] manager desktop added Navigation Signature: Joyce Briones MA October 05, 2024 11:54 AM documented in this encounter [facility] 09-28-2024 Progress note Formatting of t his note is different from the original. d ITZEL-S: Keagan Alicia is a 23 year old female who presents at 37w6d with LUZ:10/13/2024, by Last Menstrual Period for a routine visit. Denies chest pain, shortness of breath, vaginal bleeding, leakage of fluid, or dysuria. Admits to headache that is relieved with Tylenol but then returns. No scotoma but will get bright stars at times, last time a few days ago. O: See flow sheet Gen: No apparent distress Abd: Gravid, nontender Clonus negative, +2/4 bilateral patellar ASSESSMENT/PLAN: 1. Supervision of other high risk pregnancies, second trimester -Continue PNV -Continue ASA 2. 37 weeks gestation of 3. History of pulmonary embolism -Consider coagulation after delivery if additional risk factor (, prolonged hospitalization) 4. History of shoulder dystocia in prior -Planning repeat C/S on 10/07 at 0715am with and tubal sterilization 5. Antepartum anemia complicating in third trimester -Repeat CBC today -Continue iron supplement 6. headache in third trimester -No signs of preeclampsia, will get labs today. -Reviewed signs and symptoms and when to call -Headache cocktail with tylenol, benadryl, reglan. If needed can go to hospital for further evaluation, declines at this time. 7. History of depression -No medication at this time, coping well -History of SI and suicide attempt 8. Rh negative state in antepartum period -Rhogam at 28wk Labor instructions reviewed and when to call RTO for visit Jaquelin Hi APRN.CNM [facility] 09-28-2024 Miscellaneous Notes d ITZEL-S: Keagan Alicia is a 23 year old female who presents at 37w6d with LUZ:10/13/2024, by Last Menstrual Period for a routine visit. Denies chest pain, shortness of breath, vaginal bleeding, leakage of fluid, or dysuria. Admits to headache that is relieved with Tylenol but then returns. No scotoma but will get bright stars at times, last time a few days ago. O: See flow sheet Gen: No apparent distress Abd: Gravid, nontender Clonus negative, +2/4 bilateral patellar ASSESSMENT/PLAN: 1. Supervision of other high risk pregnancies, second trimester -Continue PNV -Continue ASA 2. 37 weeks gestation of 3. History of pulmonary embolism -Consider coagulation after delivery if additional risk factor (, prolonged hospitalization) 4. History of shoulder dystocia in prior -Planning repeat C/S on 10/07 at 0715am with and tubal sterilization 5. Antepartum anemia complicating in third trimester -Repeat CBC today -Continue iron supplement 6. headache in third trimester -No signs of preeclampsia, will get labs today. -Reviewed signs and symptoms and when to call -Headache cocktail with tylenol, benadryl, reglan. If needed can go to hospital for further evaluation, declines at this time. 7. History of depression -No medication at this time, coping well -History of SI and suicide attempt 8. Rh negative state in antepartum period -Rhogam at 28wk Labor instructions reviewed and when to call RTO for visit Jaquelin Hi APRN.CNM documented in this encounter [facility] 09-28-2024 Instructions Jaquelin Hi APRN.CNM - 09/28/2024 11:11 AM EDT 2 tylenol, 1 benadryl, 1 reglan, gatorade and go to bed. SIGNS AND SYMPTOMS OF LABOR 1. Contractions every 10 minutes or more often 2. Clear, pink, or brownish fluid (water) leaking from vagina 3. Feeling that baby is pushing down, pressure 4. Low, dull backache 5. Cramps that feel like a period 6. Cramps with or without diarrhea If you notice any of the above symptoms, contact our office at [phone] and ask to speak with a nurse. After hours, you can call doctors registry at [phone] OR call [facility] at [phone] and ask to have the doctor front counter clerk paged. If you consider this an emergency, dial 7-9-0 or go to your nearest emergency department. NEED HELP? Are you dealing with a violent or abusive relationship? Are you a victim of rape or sexual assult? Call [facility] 24 hour Crisis Hotline: 612.893.5495 or 774-505-6850. MANUAL Your Guide to a Healthy manual is now on-line. Visit [email or web address] ncyGuide to download your free copy documented in this encounter [facility] 2024 Note [facility] Medical Records Department [address] [place] [address] History Physical Exam 09/22/24 1432 MR#: [id number] Acct: [id number] Name: KEAGAN ALICIA Rep #: [id number] : 2000 24 From: Yamila Ballard MD PCP: ZIA Duke Status:PRE IN Location: [facility] History and Physical Date of Admission: 10/07/24 HPI: The patient is a 24 year old female presenting for pre-operative visit. She is scheduled for and tubal sterilization for h/o shoulder dysotocia, LGA fetus on 10/07/24. Procedure discussed along with risks, benefits and complications. Other alternatives discussed for management. Consent form signed? Yes. ? PAST MEDICAL HISTORY PAST MEDICAL HISTORYDiagnosisDate???Anemia?Chronic tonsillitis?Wmbtgdcouf87/29/ 2017???Gall stone07/2022???cholecystectomy after delivery???GERD (gastroesophageal reflux disease)?H/O shoulder dystocia in prior , currently ([facility])12/14/22???Hemorrhoids? History of back problems ?History of depression?History of shoulder dystocia in prior pregnancy03/10/2024???Kidney stones?Paroxysmal SVT (supraventricular tachycardia) ([facility])?Postoperative pulmonary embolism ([facility])06/2023???Psychiatric disorder?depression, anxiety and PTSD ? PAST SURGICAL HISTORY PAST SURGICAL HISTORYProcedureLateralityDate??? CHOLECYSTECTOMY HX???06/17/2023???[facility]???IUD REMOVAL???09/15/2023???[facility]???10/03/2023???[facility] HX? CURRENT MEDICATIONS Current Outpatient MedicationsMedicationSigDispenseR efill???metoprolol tartrate, short acting, (LOPRESSOR) 25 mg tabletTake 25 mg by mouth two times a day.?Omeprazole Magnesium (PRILOSEC OTC) 20 mg tabletTake 1 tablet by mouth two times a day as needed (heartburn).60 tablet3???aspirin, enteric coated (ECOTRIN LOW STRENGTH) 81 mg EC tabletTake 1 tablet by mouth once daily.90 tablet3???folic acid 1 mg tabletTake 1 tablet by mouth once daily.30 tablet1???ondansetron (ZOFRAN) 4 mg tabletTake 1 tablet by mouth every 6 hours as needed for nausea/vomiting.120 tablet1???No current facility- administered medications for this visit. ? ALLERGIES: Latex ??? PERSONAL HISTORY: [SOCIAL HISTORY] [SOCIAL HISTORY] Social History Tobacco Use ??? Smoking status: Never ? Passive exposure: Yes ??? Smokeless tobacco: Never ??? Tobacco comments: ? Vapes Vaping Use ??? Vaping status: Every Day ??? Substances: Nicotine, Flavoring ??? Devices: Disposable Substance Use Topics ??? Alcohol use: Not Currently ??? Drug use: Not Currently ? Frequency: 2.0 times per week ? Types: Marijuana ? Comment: smoking ??? FAMILY HISTORY: FAMILY HISTORY FAMILY HISTORY ProblemRelationAge of Onset???other (migraines)Mother?NoneFather ?Ovarian cancerMaternal Grandmother?Anesthesia ProblemsNo Family History? REVIEW OF SYMPTOMS: GENERAL: denies fevers or chills ENDOCRINOLOGY: has not been on steroids Cardiology : denies palpitations or chest pain Respiratory: denies SOB or cough Hematology: denies history of prolonged bleeding or easy bruising or VTE Allergy: Denies history of personal or family history of allergy to anesthesia ??? PHYSICAL EXAMINATION: ??? VITALS: Blood pressure 108/74, weight 88 kg (194 lb), last menstrual period 01/07/2024, not currently . ??? GENERAL: The patient is well nourished, well hydrated in no acute distress. , The patient is oriented to time, place, and person. NECK: Supple. No lynphadenopathy, normal thyroid, no thyromegaly. LUNGS: Clear to auscultation bilaterally. no wheezes, rhonchi or rales HEART: Regular rate and rhythm, Normal heart sounds, and No murmurs or gallops abd- soft, nontender, gravid ext trace edema ? IMPRESSION: Estimated Date of Delivery: 10/13/24 ??? PLAN: The risks/benefits/alternatives and personal involved for the planned c-s and sterilization were reviewed with the patient. Her questions were answered to her satisfaction and she desires to proceed. Consent was signed. I reviewed with her postop instructions and expectations. Risks, benefits and alternatives to sterilization have been discussed with the patient. She declines reversible options including LARC. She understands sterilization is permanent, irreversible, risks of failure, regret and ectopic. In addition she understands there are surgical risks as well. Her questions were answered to her satisfaction and consent was signed. ??? I have reviewed and updated past medical and surgical history, medications and allergies Assessment Plan Assessment/Plan (1) High risk multigravida in third trimester: (2) Shoulder (more content not included)... [facility] 2024 Progress note Formatting of t his note might be different from the original. RR- VB No. LOF No. CTXS cont. to be the same for 2 weeks. Movement: present. Other c/o: mild edema, mild DRAPER intermittent Medication list reviewed. SENSITIVE EXAM: The sensitive examination was discussed with the Patient or Patient's Authorized Women'S Ministry Director. As applicable, any other physician, advance practice provider, medical student, or other health professional student that will be observing or involved in the sensitive examination for educational or training purposes was discussed with the Patient or Authorized Women'S Ministry Director. The Patient or Authorized Women'S Ministry Director has agreed to proceed with the sensitive examination. (Sensitive examination includes inspection and/or palpation of the breasts, pelvis, prostate and anorectal regions). Physical Exam See Flow Sheet Abd: soft, nontender, gravid Ext: edema: 1+ A/P 37w0d Estimated Date of Delivery: 10/13/24 ASSESSMENT/PLAN: 1. Supervision of high risk in third trimester (HCC) - ICD9: V23.9, ICD10: O09.93 (primary diagnosis) - URINE OB DIP B/O - ROUTINE, GROUP B STREPTOCOCCUS BY PCR 2. History of pulmonary embolism - ICD9: V12.55, ICD10: Z86.711 plan anitcoagulation after delivery - URINE OB DIP B/O - ROUTINE, GROUP B STREPTOCOCCUS BY PCR 3. History of shoulder dystocia in prior - ICD9: V13.29, ICD10: Z87.59 plans primary c/s - URINE OB DIP B/O - ROUTINE, GROUP B STREPTOCOCCUS BY PCR 4. Abnormality in heart rate or rhythm, antepartum (HCC) - ICD9: 659.73, ICD10: O36.8390 - URINE OB DIP B/O - ROUTINE, GROUP B STREPTOCOCCUS BY PCR 5. Antepartum anemia complicating in third trimester (HCC) - ICD9: 648.23, 285.9, ICD10: O99.013 finished fe infusions - URINE OB DIP B/O - ROUTINE, GROUP B STREPTOCOCCUS BY PCR 6. Irregular uterine contractions (HCC) - ICD9: 644.10, ICD10: O47.9 if increased to L&D or return for eval - URINE OB DIP B/O - ROUTINE, GROUP B STREPTOCOCCUS BY PCR 7. 37 weeks gestation of (HCC) - ICD9: V22.2, ICD10: Z3A.37 decision for surgery today - URINE OB DIP B/O - ROUTINE, GROUP B STREPTOCOCCUS BY PCR 8. vaginal dicscharge, orders entered Yamila Ballard MD [facility] 2024 Miscellaneous Notes RR- VB No. LOF No. CTXS cont. to be the same for 2 weeks. Movement: present. Other c/o: mild edema, mild DRAPER intermittent Medication list reviewed. SENSITIVE EXAM: The sensitive examination was discussed with the Patient or Patient's Authorized Women'S Ministry Director. As applicable, any other physician, advance practice provider, medical student, or other health professional student that will be observing or involved in the sensitive examination for educational or training purposes was discussed with the Patient or Authorized Women'S Ministry Director. The Patient or Authorized Women'S Ministry Director has agreed to proceed with the sensitive examination. (Sensitive examination includes inspection and/or palpation of the breasts, pelvis, prostate and anorectal regions). Physical Exam See Flow Sheet Abd: soft, nontender, gravid Ext: edema: 1+ A/P 37w0d Estimated Date of Delivery: 10/13/24 ASSESSMENT/PLAN: 1. Supervision of high risk in third trimester ([facility]) - ICD9: V23.9, ICD10: O09.93 (primary diagnosis) - URINE OB DIP B/O - ROUTINE, GROUP B STREPTOCOCCUS BY PCR 2. History of pulmonary embolism - ICD9: V12.55, ICD10: Z86.711 plan anitcoagulation after delivery - URINE OB DIP B/O - ROUTINE, GROUP B STREPTOCOCCUS BY PCR 3. History of shoulder dystocia in prior - ICD9: V13.29, ICD10: Z87.59 plans primary c/s - URINE OB DIP B/O - ROUTINE, GROUP B STREPTOCOCCUS BY PCR 4. Abnormality in heart rate or rhythm, antepartum ([facility]) - ICD9: 659.73, ICD10: O36.8390 - URINE OB DIP B/O - ROUTINE, GROUP B STREPTOCOCCUS BY PCR 5. Antepartum anemia complicating in third trimester ([facility]) - ICD9: 648.23, 285.9, ICD10: O99.013 finished fe infusions - URINE OB DIP B/O - ROUTINE, GROUP B STREPTOCOCCUS BY PCR 6. Irregular uterine contractions ([facility]) - ICD9: 644.10, ICD10: O47.9 if increased to L&D or return for eval - URINE OB DIP B/O - ROUTINE, GROUP B STREPTOCOCCUS BY PCR 7. 37 weeks gestation of ([facility]) - ICD9: V22.2, ICD10: Z3A.37 decision for surgery today - URINE OB DIP B/O - ROUTINE, GROUP B STREPTOCOCCUS BY PCR 8. vaginal dicscharge, orders entered Yamila Ballard MD documented in this encounter [facility] 2024 History and physical note Pre-Op History and Physical HPI: The patient is a 24 year old female presenting for pre-operative visit. She is scheduled for and tubal sterilization for h/o shoulder dysotocia, LGA fetus on 10/07/24. Procedure discussed along with risks, benefits and complications. Other alternatives discussed for management. Consent form signed? Yes. PAST MEDICAL HISTORY Diagnosis Date Anemia Chronic tonsillitis Depression 10/08/2016 Gall stone 07/2022 cholecystectomy after delivery GERD (gastroesophageal reflux disease) H/O shoulder dystocia in prior , currently ([facility]) 12/14/22 Hemorrhoids History of back problems History of depression History of shoulder dystocia in prior 03/10/2024 Kidney stones Paroxysmal SVT (supraventricular tachycardia) ([facility]) Postoperative pulmonary embolism ([facility]) 06/2023 Psychiatric disorder depression, anxiety and PTSD PAST SURGICAL HISTORY Procedure Laterality Date CHOLECYSTECTOMY HX 06/17/2023 [facility] IUD REMOVAL 09/15/2023 PT [facility]ULAR 10/03/2023 TONSILLECTOMY HX Current Outpatient Medications Medication Sig Dispense Refill metoprolol tartrate, short acting, (LOPRESSOR) 25 mg tablet Take 25 mg by mouth two times a day. Omeprazole Magnesium (PRILOSEC OTC) 20 mg tablet Take 1 tablet by mouth two times a day as needed (heartburn). 60 tablet 3 aspirin, enteric coated (ECOTRIN LOW STRENGTH) 81 mg EC tablet Take 1 tablet by mouth once daily. 90 tablet 3 folic acid 1 mg tablet Take 1 tablet by mouth once daily. 30 tablet 1 ondansetron (ZOFRAN) 4 mg tablet Take 1 tablet by mouth every 6 hours as needed for nausea/vomiting. 120 tablet 1 No current facility-administered medications for this visit. ALLERGIES: Latex PERSONAL HISTORY: SOCIAL HISTORY[1] FAMILY HISTORY: FAMILY HISTORY Problem Relation Age of Onset other (migraines) Mother None Father Ovarian cancer Maternal Grandmother Anesthesia Problems No Family History REVIEW OF SYMPTOMS: GENERAL: denies fevers or chills ENDOCRINOLOGY: has not been on steroids Cardiology : denies palpitations or chest pain Respiratory: denies SOB or cough Hematology: denies history of prolonged bleeding or easy bruising or VTE Allergy: Denies history of personal or family history of allergy to anesthesia PHYSICAL EXAMINATION: VITALS: Blood pressure 108/74, weight 88 kg (194 lb), last menstrual period 01/07/2024, not currently . GENERAL: The patient is well nourished, well hydrated in no acute distress. , The patient is oriented to time, place, and person. NECK: Supple. No lynphadenopathy, normal thyroid, no thyromegaly. LUNGS: Clear to auscultation bilaterally. no wheezes, rhonchi or rales HEART: Regular rate and rhythm, Normal heart sounds, and No murmurs or gallops abd- soft, nontender, gravid ext trace edema IMPRESSION: Estimated Date of Delivery: 10/13/24 PLAN: The risks/benefits/alternatives and personal involved for the planned c-s and sterilization were reviewed with the patient. Her questions were answered to her satisfaction and she desires to proceed. Consent was signed. I reviewed with her postop instructions and expectations. Risks, benefits and alternatives to sterilization have been discussed with the patient. She declines reversible options including LARC. She understands sterilization is permanent, irreversible, risks of failure, regret and ectopic. In addition she understands there are surgical risks as well. Her questions were answered to her satisfaction and consent was signed. I have reviewed and updated past medical and surgical history, medications and allergies Yamila Ballard M.D. [1] Social History Tobacco Use Smoking status: Never Passive exposure: Yes Smokeless tobacco: Never Tobacco comments: Vapes Vaping Use Vaping status: Every Day Substances: Nicotine, Flavoring Devices: Disposable Substance Use Topics Alcohol use: Not Currently Drug use: Not Currently Frequency: 2.0 times per week Types: Marijuana Comment: smoking [facility] 2024 History and physical note Pre-Op History and Physical HPI: The patient is a 24 year old female presenting for pre-operative visit. She is scheduled for and tubal sterilization for h/o shoulder dysotocia, LGA fetus on 10/07/24. Procedure discussed along with risks, benefits and complications. Other alternatives discussed for management. Consent form signed? Yes. PAST MEDICAL HISTORY Diagnosis Date Anemia Chronic tonsillitis Depression 10/08/2016 Gall stone 07/2022 cholecystectomy after delivery GERD (gastroesophageal reflux disease) H/O shoulder dystocia in prior , currently ([facility]) 12/14/22 Hemorrhoids History of back problems History of depression History of shoulder dystocia in prior 03/10/2024 Kidney stones Paroxysmal SVT (supraventricular tachycardia) (HCC) Postoperative pulmonary embolism (HCC) 06/2023 Psychiatric disorder depression, anxiety and PTSD PAST SURGICAL HISTORY Procedure Laterality Date CHOLECYSTECTOMY HX 06/17/2023 [facility] IUD REMOVAL 09/15/2023 PT ED HEART AND VASCULAR 10/03/2023 TONSILLECTOMY HX Current Outpatient Medications Medication Sig Dispense Refill metoprolol tartrate, short acting, (LOPRESSOR) 25 mg tablet Take 25 mg by mouth two times a day. Omeprazole Magnesium (PRILOSEC OTC) 20 mg tablet Take 1 tablet by mouth two times a day as needed (heartburn). 60 tablet 3 aspirin, enteric coated (ECOTRIN LOW STRENGTH) 81 mg EC tablet Take 1 tablet by mouth once daily. 90 tablet 3 folic acid 1 mg tablet Take 1 tablet by mouth once daily. 30 tablet 1 ondansetron (ZOFRAN) 4 mg tablet Take 1 tablet by mouth every 6 hours as needed for nausea/vomiting. 120 tablet 1 No current facility-administered medications for this visit. ALLERGIES: Latex PERSONAL HISTORY: SOCIAL HISTORY[1] FAMILY HISTORY: FAMILY HISTORY Problem Relation Age of Onset other (migraines) Mother None Father Ovarian cancer Maternal Grandmother Anesthesia Problems No Family History REVIEW OF SYMPTOMS: GENERAL: denies fevers or chills ENDOCRINOLOGY: has not been on steroids Cardiology : denies palpitations or chest pain Respiratory: denies SOB or cough Hematology: denies history of prolonged bleeding or easy bruising or VTE Allergy: Denies history of personal or family history of allergy to anesthesia PHYSICAL EXAMINATION: VITALS: Blood pressure 108/74, weight 88 kg (194 lb), last menstrual period 01/07/2024, not currently . GENERAL: The patient is well nourished, well hydrated in no acute distress. , The patient is oriented to time, place, and person. NECK: Supple. No lynphadenopathy, normal thyroid, no thyromegaly. LUNGS: Clear to auscultation bilaterally. no wheezes, rhonchi or rales HEART: Regular rate and rhythm, Normal heart sounds, and No murmurs or gallops abd- soft, nontender, gravid ext trace edema IMPRESSION: Estimated Date of Delivery: 10/13/24 PLAN: The risks/benefits/alternatives and personal involved for the planned c-s and sterilization were reviewed with the patient. Her questions were answered to her satisfaction and she desires to proceed. Consent was signed. I reviewed with her postop instructions and expectations. Risks, benefits and alternatives to sterilization have been discussed with the patient. She declines reversible options including LARC. She understands sterilization is permanent, irreversible, risks of failure, regret and ectopic. In addition she understands there are surgical risks as well. Her questions were answered to her satisfaction and consent was signed. I have reviewed and updated past medical and surgical history, medications and allergies Yamila Ballard M.D. [1] Social History Tobacco Use Smoking status: Never Passive exposure: Yes Smokeless tobacco: Never Tobacco comments: Vapes Vaping Use Vaping status: Every Day Substances: Nicotine, Flavoring Devices: Disposable Substance Use Topics Alcohol use: Not Currently Drug use: Not Currently Frequency: 2.0 times per week Types: Marijuana Comment: smoking documented in this encounter [facility] 2024 Instructions Alfreda Licea MA - 2024 10:47 AM EDT SEQUENTIAL SCREENINGS The [facility] offers sequential screenings for women who are [...] It will require an appointment with our tv technician. This is not an ultrasound performed [...] the above symptoms, contact our office at [phone] and ask to speak with a nurse. After hours, you can call doctors registry at [phone] OR call [facility] at [phone] and ask to have the doctor front counter clerk paged. If you consider this an emergency, dial or go to your nearest emergency department. NEED HELP? Are you dealing with a violent or abusive relationship? Are you a victim of rape or sexual assult? Call [facility] ([place]) 24 hour Crisis Hotline: 870.895.7396 or 210-665-6702. MANUAL Your Guide to a Healthy manual is now on-line. Visit [email or web address] to download your free copy documented in this encounter [facility] 09-21-2024 Telephone encounter Note 36w6d Received a fax from [facility] for patient's records. Patient is scheduled for her Pre Op with RR tomorrow for her C/S scheduled on 10/07. Left message for patient to call the office. Is she transferring care? Chantelle Marquis RN [facility] 09-21-2024 Miscellaneous Notes 36w6d Received a fax from [facility] for patient's records. Patient is scheduled for her Pre Op with RR tomorrow for her C/S scheduled on 10/07. Left message for patient to call the office. Is she transferring care? Chantelle Marquis, KELLI documented in this encounter [facility] 09-19-2024 History and physi hoda note [facility] 09-16-2024 Note HNO ID: [id number] Author: NAYELY GIL PA-C Service: ? Author Type: Physician Manager Marketing Sales Type: Progress Notes Filed: 09/16/2024 11:22 Note Text: [facility] DEPARTMENT OF PATIENT BLOOD MANAGEMENT FOLLOW-UP DISTANCE HEALTH VISIT I have communicated my name and active licensure. The patient's identity and physical location were verified at the time of this visit. No patient name on file. or their legal union representative has been informed of the risks and benefits of -- and alternatives to -- treatment through a remote evaluation and consents to proceed with the evaluation remotely. This is a virtual visit using [employer] Zoom Video Visit. It required patient-provider interaction for the medical decision making as documented below. PATIENT NAME: Keagan Alicia DATE OF SERVICE: 09/16/24 REFERRING PROVIDER: Jaquelin Hi APRN.CN Keagan Alicia is a 23 year old [...] H/O shoulder dystocia in prior , currently ([facility]) 12/14/22 Hemorrhoids History of back problems History of depression History of shoulder dystocia in prior 03/10/2024 Kidney stones Paroxysmal SVT (supraventricular tachycardia) ([facility]) Postoperative pulmonary embolism ([facility]) 06/2023 Psychiatric disorder depression, anxiety and PTSD PAST SURGICAL HISTORY Procedure Laterality Date CHOLECYSTECTOMY HX 06/17/2023 [facility] IUD REMOVAL 09/15/2023 PT ED HEART [...] no distress, w (more content not included)... [facility] 09-11-2024 Note Obstetrics History a nd Physical [...] no significant decelerations noted at this time. Dillard: No contractions. Labs: Labs from the last [...] AUTHENTICATED BY JULIANE DARBY, ON 09/11/2024 11:19:25 [facility] 09-09-2024 Miscellaneous Notes Patient ambulates off unit at this time with discharge AVS in hand. Discharge education given to patient. Reviewed signs of labor and UTIs in . Encouraged patient to call primary provider tomorrow regarding contractions and possible UTI. Patient agreeable. Encouraged patient to return for second dose of betamethasone tomorrow. Patient states returning to primary residence in [place], [place] tomorrow. Encouraged patient to go to nearest L&D for second dose of betamethasone tomorrow 24 hours after initial dose (around 0 tomorrow night), patient agreeable. Patient declines questions [...] an obstetric provider in another town in [place] with last appointment being 09/08/2024. Patient reports history of a shoulder dystocia with previous delivery and that this fetus is large for dates and that she was planning to do a at term for this infant. Patient ambulates on to unit at this time, height and weight obtained. Patient oriented to room 215. documented in this encounter [facility] 09-09-2024 Nurse Note Patient ambulates off unit at this time with discharge AVS in hand. [facility] 09-09-2024 Nurse Note Discharge education given to patient. Reviewed signs of labor and UTIs in . Encouraged patient to call primary provider tomorrow regarding contractions and possible UTI. Patient agreeable. Encouraged patient to return for second dose of betamethasone tomorrow. Patient states returning to primary residence in [place], [place] tomorrow. Encouraged patient to go to nearest L&D for second dose of betamethasone tomorrow 24 hours after initial dose (around 2130 tomorrow night), patient agreeable. Patient declines questions or concerns. Discharge AVS signed by patient. [facility] 09-09-2024 Nurse Note Call placed to Dr. Kelly and updated on patient's cervical exam unchanged, but continued contractions. Dr. Kelly orders a one time dose of macrobid and a one time dose of vistaril and states patient may discharge home on labor precautions and follow up with primary OB tomorrow. T [facility] 09-09-2024 Nurse Note Call placed to LUZ Zeng given including patient history and medical history, cervical exam, contraction pattern, and urinalysis. Orders received for 1 L fluid bolus of lactated ringers, procardia 10 mg as a one time dose thirty minutes after initiating fluid bolus, betamethasone injection, tylenol if patient desires, and to recheck her cervix in about 1.5 hours and to call back with results. [facility] 09-09-2024 Nurse Note Patient reports contractions that [...] to seeing an obstetric provider in another [facility] in [place] with last appointment being 09/08/2024. Patient reports history of a shoulder dystocia with previous delivery and that this fetus is large for dates and that she was planning to do a at term for this infant. [facility] 09-09-2024 Nurse Note Patient ambulates on to unit at this time, height and weight obtained. Patient oriented to room 215. [facility] 09-09-2024 History and physi hoda note [facility] 09-09-2024 Telephone encounter Note Thank you, Jaquelin Hi APRN.CNM [facility] 09-09-2024 Miscellaneous Notes Thank you, Jaquelin Hi [...] c/s on 10/07. documented in this encounter [facility] 09-09-2024 Telephone encounter Note Ob patient is 35w1d called stating I think my water broke reports a constant dampness pantiess since waking up and stated that bed linens were damp when she woke up and having irregular contractions. Discussed with Jaquelin Hi. Patient was told to go to L&D for evaluation. Patient is scheduled for a repeat c/s on 10/07. [facility] 09-08-2024 Note HNO ID: [id number] Author: GINO VALERO APRN.CNM Service: ? Author Type: Buckle Attacher Type: Progress Notes Filed: 09/08/2024 12:56 Note Text: NST SUMMARY PROVIDER ASSESSMENT AND INTERPRETATION Keagan Alicia is a 23 year old female, , who is at 35w0d with an LUZ of 10/13/2024, by Last Menstrual Period dating method. Indications for NST: Other: contractions Baseline: 140 Variability: Moderate Accelerations: Present 15 X 15 Decelerations: None Contractions: TOCO: Irregular Interpretation: Reactive SIGNATURE: Gion Valero APRN.CNM [facility] 09-08-2024 History of Present illness Narrative NST [...] Gino Valero APRN.CNM documented in this encounter [facility] 09-08-2024 Progress note Formatting of t his [...] or sooner if needed Gino Valero APRN.CNM [facility] 09-08-2024 Miscellaneous Notes S: Keagan Alicia is [...] Gino Valero APRN.CNM documented in this encounter [facility] 09-08-2024 Instructions Alisha Jordan LPN - 09/08/2024 9:48 AM EDT SEQUENTIAL SCREENINGS The [facility] offers sequential screenings for women who are [...] It will require an appointment with our tv technician. This is not an ultrasound performed [...] the above symptoms, contact our office at [phone] and ask to speak with a nurse. After hours, you can call doctors registry at [phone] OR call [facility] at [phone] and ask to have the doctor front counter clerk paged. If you consider this an emergency, dial 9-1-9 or go to your nearest emergency department. NEED HELP? Are you dealing with a violent or abusive relationship? Are you a victim of rape or sexual assult? Call [facility] ([facility] 24 hour Crisis Hotline: 650.447.1476 or 082-075-6470. MANUAL Your Guide to a Healthy manual is now on-line. Visit [email or web address] to download your free copy documented in this encounter [facility] 09-08-2024 Miscellaneous Notes RR- VB No. LOF No. CTXS No. Movement: present. Other c/o: No. Medication list reviewed. SENSITIVE EXAM: Sensitive exam not performed. Physical Exam See Flow Sheet Abd: soft, nontender, gravid Ext: edema: Trace A/P 35w0d Estimated Date of Delivery: 10/13/24 Assessment & Plan 34 weeks gestation of ([facility]) Orders: URINE OB DIP B/O Supervision of high risk in third trimester ([facility]) Orders: URINE OB DIP B/O History of [...] Yamila Ballard M.D. documented in this encounter [facility] 09-08-2024 Progress note Formatting of t his [...] Supervision of high risk in third trimester ([facility]) Orders: URINE OB DIP B/O History of [...] to proceed w/ c/s Yamila Ballard M.D. [facility] 09-07-2024 Note Indication Evaluation of growth history [...] 3 oz EFW by: Hadlock (HC-AC-FL) Extended Chair Installer 6.8 mm Extremities / Bony Struc FL [...] 09/07/2024 2:40 PM EDT SEQUENTIAL SCREENINGS The [facility] offers sequential screenings for women who are [...] It will require an appointment with our tv technician. This is not an ultrasound performed [...] the above symptoms, contact our office at [phone] and ask to speak with a nurse. After hours, you can call doctors registry at [phone] OR call [facility] at [phone] and ask to have the doctor front counter clerk paged. If you consider this an emergency, dial 6-1-0 or go to your nearest emergency department. NEED HELP? Are you dealing with a violent or abusive relationship? Are you a victim of rape or sexual assult? Call [facility] ([place]) 24 hour Crisis Hotline: 993.970.6401 or 930-751-6551. MANUAL Your Guide to a Healthy manual is now on-line. Visit [email or web address] to download your free copy SEQUENTIAL SCREENINGS The [facility] offers sequential screenings for women who are [...] It will require an appointment with our tv technician. This is not an ultrasound performed [...] the above symptoms, contact our office at [phone] and ask to speak with a nurse. After hours, you can call doctors registry at [phone] OR call [facility] at [phone] and ask to have the doctor front counter clerk paged. If you consider this an emergency, dial 10-11-0 or go to your nearest emergency department. NEED HELP? Are you dealing with a violent or abusive relationship? Are you a victim of rape or sexual assult? Call [facility] ([place]) 24 hour Crisis Hotline: 928.618.5279 or 213-128-8527. MANUAL Your Guide to a Healthy manual is now on-line. Visit [email or web address] to download your free copy documented in this encounter [facility] 08-24-2024 Note HNO ID: [id number] Author: YOSHI WEST RN Service: ? Author [...] placed. Denies questions or needs. Ambulated to [facility], no concerns. [facility] 08-24-2024 History [...] placed. Denies questions or needs. Ambulated to [facility], no concerns. documented in this encounter [facility] 08-24-2024 Progress note Formatting of t his [...] PTL & FM precautions Prabhu Ortez MD [facility] 08-24-2024 Miscellaneous Notes KJ - S: Keagan [...] Prabhu Ortez MD documented in this encounter [facility] 08-24-2024 Instructions Deepthi Callahan MA - 08/24/2024 10:42 AM EDT SEQUENTIAL SCREENINGS The [facility] offers sequential screenings for women who are [...] It will require an appointment with our tv technician. This is not an ultrasound performed [...] the above symptoms, contact our office at [phone] and ask to speak with a nurse. After hours, you can call doctors registry at [phone] OR call [facility] at [phone] and ask to have the doctor front counter clerk paged. If you consider this an emergency, dial 9--1 or go to your nearest emergency department. NEED HELP? Are you dealing with a violent or abusive relationship? Are you a victim of rape or sexual assult? Call [facility] ([place]) 24 hour Crisis Hotline: 269.718.8532 or 044-993-3633. MANUAL Your Guide to a Healthy manual is now on-line. Visit [email or web address] ncyGuide to download your free copy documented in this encounter [facility] 08-20-2024 Note HNO ID: [id number] Author: YOSHI WEST RN Service: ? Author [...] removed, DSD place. documented in this encounter [facility] 08-17-2024 Note HNO ID: [id number] Author: YOSHI WEST RN Service: ? Author Type: Registered Nurse Type: Progress Notes Filed: 08/17/2024 15:31 Note Text: Pt arrived in stable condition. VSS. Appears well, Pt states the evening after 1st dose of iron she developed itching/pruritus without hives or rash. OBgyn front counter clerk notified and pt took benedryl and zyrtec [...] no concerns or need noted. Ambulated to [facility]. [facility] 08-17-2024 History of Present illness Narrative Pt arrived in stable condition. VSS. Appears well, Pt states the evening after 1st dose of iron she developed itching/pruritus without hives or rash. OBgyn front counter clerk notified and pt took benedryl and zyrtec [...] no concerns or need noted. Ambulated to [facility]. documented in this encounter [facility] 08-12-2024 Note HNO ID: [id number] Author: YOSHI WEST RN Service: ? Author [...] pain, chills or discomfort. Pt ambulated to [facility] no concerns. [facility] 08-12-2024 History [...] pain, chills or discomfort. Pt ambulated to [facility] no concerns. documented in this encounter [facility] 08-10-2024 Progress note Formatting of t his [...] PTL & FM precautions Prabhu Ortez MD [facility] 08-10-2024 Miscellaneous Notes KJ - S: Keagan [...] than prior infant. Paroxysmal SVT (supraventricular tachycardia) ([facility]) On metoprolol Reviewed PTL & FM precautions Prabhu Ortez MD documented in this encounter [facility] 08-10-2024 Instructions Alyx Cordero MA - 08/10/2024 11:25 AM EDT SEQUENTIAL SCREENINGS The [facility] offers sequential screenings for women who are [...] It will require an appointment with our tv technician. This is not an ultrasound performed [...] the above symptoms, contact our office at [phone] and ask to speak with a nurse. After hours, you can call [employer] [facility] at [phone] OR call [facility] at [phone] and ask to have the doctor front counter clerk paged. If you consider this an emergency, dial 9-1-4 or go to your nearest emergency department. NEED HELP? Are you dealing with a violent or abusive relationship? Are you a victim of rape or sexual assult? Call [facility] ([place]) 24 hour Crisis Hotline: 204.671.1961 or 294-040-3939. MANUAL Your Guide to a Healthy manual is now on-line. Visit [email or web address] ncyGuide to download your free copy documented in this encounter [facility] 08-05-2024 Instructions Nayely Gil PA-C - 08/05/2024 3:25 PM EDT Images from the original note were not included. Summary of today's visit: - You have iron deficiency anemia and require IV iron infusions. - We are in the process of arranging IV iron infusions for you at [facility]. Once the clinic has processed the referral, someone will contact you to schedule appointments. Insurance preauthorization may be required and can take 7 - 14 days. Please call the infusion center directly at [phone] to schedule an appointment if you don't [...] with multiples. Not consuming enough iron. Having awkq-kj-sbeq pregnancies with minimal time between. Experiencing a [...] notice a change? If you have iron-deficiency, K42-mxtfndppvv or folate-deficiency anemia, you should begin to [...] any other symptoms, talk to your provider. Dimock / Prognosis What is the outlook for [...] best supplement for you. A note from [facility] You may be slightly anemic during because blood volume increases by 20% to 30%. Keeping your diet rich in iron, vitamin C and B vitamins helps correct and prevent anemia. Taking a daily vitamin can help, too. Talk to your provider about your risk of anemia during and any concerns you may have. Information obtained from: [facility] (https://my.[facility].org/h ealth/diseases/43702-pbfrhy-diclx g-). References José Miguel NM, Edwin MM. The impact of maternal iron deficiency and iron deficiency anemia on child's health (https://www.ncbi.nlm.nih.gov/pmc /articles/IRQ8623458/). Saudi Med J. 2015;36(2):146-149. Accessed 07/05/2021. [place] [employer] Gastroenterology. Peptic Ulcer Disease (https://gi.org/topics/peptic-ulc er-disease/). Accessed 07/05/2021. [place] Association. Anemia During (https://americanpregnancy.org/he althy-/-concern s/ojidtn-igwmcg-ljkrxmnei/). Accessed 07/05/2021. [place] Society of Hematology. Anemia and (https://www.hematology.org/educa tion/patients/anemia/). Accessed 07/05/2021. Coreen Kenyon. Chronic Anemia (https://www.ncbi.nlm.nih.gov/sosa ks/FKZ511605/). [Updated 2020Sep 20]. In: Independent Bank [Internet]. [facility]): Duda; 2020. Accessed 07/05/2021. March Deskwanted. Anemia (https://www.marchofdiAirizu.org/com plications/anemia.aspx). Accessed 07/05/2021. National Brokaw of Diabetes and Digestive and Kidney Diseases. [...] can easily correct the condition with treatment. Dimock / Prognosis What s the outlook for [...] need to see another specialist like a briquette molder or records management manager if bleeding is determined to be the [...] start to feel better? A note from [facility] We all have days when our responsibilities outweigh the amount of energy we have. But if you have iron-deficiency anemia, you might not be able to shake those feelings of fatigue. Tell your healthcare provider if you re tired all the time. They can run tests to determine a cause and recommend appropriate treatment. Information obtained from [facility] (https://my.[facility].org/h ealth/diseases/51384-zhji-mgqpmpt ncy-anemia) References [place] Society of Hematology. Iron (https://www.hematology.org/educa tion/patients/anemia/iron-deficie ncy)- (https://www.hematology.org/educa tion/patients/anemia/iron-deficie ncy)Deficiency Anemia (https://www.hematology.org/educa tion/patients/anemia/iron-deficie ncy). (https://www.hematology.org/educa tion/patients/anemia/iron-deficie ncy) Accessed 01/21/2024. Salesvue Manual, Professional Version. Iron Deficiency Anemia (https://www.Mojostreet/pro fessional/gfcdatjmdq-uuh-sigbffal /xttdels-huaibl-zn-deficient-eryt hropoiesis/zqsd-makcxxqbid-hkerqc ). (https://www.Mojostreet/pro fesSimpleviewonal/mbfuwmpoch-hmk-siuvgcxq /qcxuxlp-lgzigh-oz-deficient-eryt hropoiesis/kcvh-ejwusyxzcd-arohhn ) Last reviewed 07/2022. Accessed 01/21/2024. National Heart, Lung, and Blood Brokaw (U.S.). Iron (https://www.nhlbi.nih.gov/health /anemia/pshp-qoulzyqhkj-jrifld)- (https://www.nhlbi.nih.gov/health /anemia/nxhs-eqembfihim-ozajzl)De ficiency Anemia (https://www.nhlbi.nih.gov/health /anemia/tgsc-vouwnugqeb-ssltui). (https://www.nhlbi.nih.gov/health /anemia/kisr-taxexogjqf-rxvdba) Last updated 05/03/2021. Accessed 01/21/2024. Lucia Pereira. Iron Supplementation (https://www.ncbi.nlm.nih.gov/sosa isaura/YAO779301/). (https://www.ncbi.nlm.nih.gov/sosa isaura/MRD371190/) In: Independent Bank [Internet]. [place] ([place]): Duda; 2023-. Accessed 01/21/2024. Iron Infusion Iron is [...] rash over your entire body). Recovery and Dimock How long does it take to recover from an iron infusion? People usually feel better a few days to a week after an iron infusion. When To Call the Doctor When should I see my healthcare provider? Contact your provider if you have side effects that you can t manage. A note from [facility] Taking iron supplements by mouth works for [...] that isn t clear. Information obtained from [facility] (https://my.[facility]/h ealt/treatments/08144-dhsubwcwfl u-evas-yfewbnffhupqnms) References [place] Society of Hematology. Iron-Deficiency Anemia (http://www.hematology.org/Patien ts/Anemia/Iron-Deficiency.aspx). Accessed 10/09/2022. Agapito Mckeon. Iron infusion and newer intravenous iron formulations (https://pubmed.ncbi.nlm.nih.gov/ 94411361/). Chin Med J (Engl). 2020;134(15):2992-5735. Published 2020July 07. Accessed 10/09/2022. Salesvue Manual Professional Version. Iron Deficiency Anemia (https://www.Mojostreet/pro fessional/qacxfenuvn-uxb-lfxlmxlm /qxmubxl-ivcppa-gy-deficient-eryt hropoiesis/aphm-asxkxgtqop-webxhd ). Last revised 07/2022. Accessed 10/09/2022. National Heart, Lung, and Blood Brokaw (U.S.). Multiple pages reviewed. National Library of Medicine (U.S.). Dailymed. Ferumoxytol injection (https://dailymed.nlm.nih.gov/edgardo lópezd/drugInfo.cfm?setid=vw83w1ef -50s2-9lc6-ln85-2w99zc252k38&maryjane ence=consumer). Last revised 08/06/2021. Accessed 10/09/2022. Swift Identity Library of Medicine (U.S.). Dailymed. Monoferric -- ferric derisomaltose injection, solution (https://dailymed.nlm.nih.gov/edgardo lópezd/drugInfo.cfm?gewsr=00059o2w -4586-4jx9-y51e5uu0-x42e-f307hsir14fe). Last revised 09/28/2021. Accessed 10/09/2022. Mayra T, Thom C, Nigel PÉREZ, et al. Questions and answers on iron deficiency treatment selection and the use of intravenous iron in routine clinical practice (https://pubmed.ncbi.nlm.nih.gov/ 93955504/). Yoana Med. 2020;53(1):274-285. Accessed 10/09/2022. Iron sucrose: Patient drug information What is this medication? IRON SUCROSE (EYE nirmal COLLEEN krose) treats low levels of iron [...] may report side effects to FDA at [phone]. Where should I keep my medication? This medication is given in a hospital or clinic and will not be stored at home. NOTE: This sheet is a summary. It may not cover all possible information. If you have questions about this medicine, talk to your doctor, pharmacist, or health care provider. Information obtained from [facility] (https://my.[facility].org/h ealt/drugs/16746-rdht-wjcqpye-dl jection) documented in this encounter [facility] 08-05-2024 History of Present illness Narrative [facility] DEPARTMENT OF PATIENT BLOOD MANAGEMENT INITIAL [facility] VISIT I have communicated my name and active licensure. The patient's identity and physical location were verified at the time of this visit. No patient name on file. or their legal union representative has been informed of the risks and benefits of -- and alternatives to -- treatment through a remote evaluation and consents to proceed with the evaluation remotely. This is a virtual visit using 3LMom Video Visit. It required patient-provider interaction for [...] use. Vape prior to . 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 Medical/Surgical History: PAST MEDICAL HISTORY Diagnosis Date Anemia Chronic tonsillitis Depression 10/08/2016 Gall stone 07/2022 cholecystectomy after delivery GERD (gastroesophageal reflux disease) H/O shoulder dystocia in prior , currently ([facility]) 12/14/22 Hemorrhoids History of back problems History of depression History of shoulder dystocia in prior 03/10/2024 Kidney stones Paroxysmal SVT (supraventricular tachycardia) ([facility]) Postoperative pulmonary embolism ([facility]) 06/2023 Psychiatric disorder depression, anxiety and PTSD PAST SURGICAL HISTORY Procedure Laterality Date CHOLECYSTECTOMY HX 06/17/2023 [facility] IUD REMOVAL 09/15/2023 PT ED HEART [...] infusion x [address] [facility]. - Recommend to recheck labs (CBC, [...] which included preparing to see the patient, kcwk-bd-fisv patient care, completing clinical documentation, counseling and educating the patient/family/caregiver, ordering medications, tests, or procedures, independently interpreting results (not separately reported), communicating results to the patient/family/caregiver, and care coordination (not separately reported) Nayely Gil PA-C Department of Blood Management August 05, 2024 CC: Referring Provider: Jaquelin Hi APRN.CNM PCP: Rachell Amador APRN.BLOOD TESTER FOWL documented in this encounter [facility] 08-05-2024 Note HNO ID: [id number] Author: NAYELY GIL PA-C Service: ? Author Type: Physician Manager Marketing Sales Type: Progress Notes Filed: 08/05/2024 15:28 Note Text: [facility] DEPARTMENT OF PATIENT BLOOD MANAGEMENT [facility]IAL [facility] VISIT I have communicated my name and active licensure. The patient's identity and physical location were verified at the time of this visit. No patient name on file. or their legal union representative has been informed of the risks and benefits of -- and alternatives to -- treatment through a remote evaluation and consents to proceed with the evaluation remotely. This is a virtual visit using 3LMom Video Visit. It required patient-provider interaction for [...] use. Vape prior to . 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 Medical/Surgical History: PAST MEDICAL HISTORY Diagnosis Date Anemia Chronic tonsillitis Depression 10/08/2016 Gall stone 07/2022 cholecystectomy after delivery GERD (gastroesophageal reflux disease) H/O shoulder dystocia in prior , currently ([facility]) 12/14/22 Hemorrhoids History of back problems History of depression History of shoulder dystocia in prior 03/10/2024 Kidney stones Paroxysmal SVT (supraventricular tachycardia) ([facility]) Postoperative pulmonary embolism ([facility]) 06/2023 Psychiatric disorder depression, anxiety and PTSD PAST SURGICAL HISTORY Procedure Laterality Date CHOLECYSTECTOMY HX 06/17/2023 [facility] IUD REMOVAL 09/15/2023 PT ED HEART [...] 07/27/2024 9.5 (L) (more content not included)... [facility] 08-03-2024 Evaluation note Diagnosis Onset Date Resolution Headache in acute Jul 1:17pm [facility] Work Phone: 1(249) 974-214906-24-2025 Evaluation note* Diagnosis Onset Date Resolution Status [...] 11:09am Vaginal discharge acute September 092024 11:09am [facility] Work Phone: 1(904) 406-723606-24-2025 Evaluation note* Diagnosis Onset Date Resolution Status [...] 11:09am Vaginal discharge acute September 092024 11:09am 36 weeks gestation of acut e September 19, 2024 12:37pm Vaginal discharge acute September 19, 2024 12:37pm [facility] Work Phone: 1(259) 193-515806-24-2025 Telephone encounter Note* Telephone Encounter - Chantelle Marquis RN - 08/03/2024 1:47 PM EDT Patient is currently at L&D. Chantelle Marquis, RN [facility]06-24-2025 Miscellaneous Notes* Telephone Encounter - Chantelle Marquis RN - 08/03/2024 1:47 PM EDT Patient is currently at L&D. Chantelle Marquis, RN * Telephone Encounter - Prabhu Ortez [...] states she has a heart appt in [place] (Hx Paroxysmal SVT) at 11:45am and will go to [facility] ER/ L&D after that to be assessed for Pre-e. Advised Pt message would be sent to KJ and if she had alternative guidance we would be in contact with her. Pt voiced understanding. Juliane Martin RN * Telephone Encounter - Jaquelin Hi APRN.INGRID - 08/02/2024 2:30 PM EDT Agree with plan and would recommend appointment. Thank you, Jaquelin Hi APRN.CNM * Telephone Encounter - Juliane Martin RN - 08/02/2024 2:07 PM EDT 29w5d See [employer] message. Tried reaching patient via phone; however, went straight to voicemail. Sent Ptmychart reply and advised she go straight to ER with symptoms listed. Juliane Martin RN [facility] Telephone encounter Note * Telephone Encounter - Prabhu Ortez MD - 08/03/2024 11:48 AM EDT I can see patient at 1pm today. Prabhu Ortez MD [facility]06-24-2025 History of Present illness Narrative* Ramiro Hugo [...] Smokes marijuana every other day FamHx: pGF RI in 30 Objective Current Outpatient Medications Medication Instructions folic acid (FOLVITE) 1 mg, Daily metoprolol tartrate (LOPRESSOR) 25 mg, oral, 2 times daily norethindrone (AYGESTIN) 5 mg, Daily RT [id number] 6-DHA ORAL Take by mouth. Visit Vitals [...] Study(s): Results DIAGNOSTIC EKG: Normal (08/03/2024) 14-day supervisor assembling (July 2023): Predominant rhythm sinus with average heart rate 95 bpm. Few episodes of SVT longest lasting 3 minutes 44 seconds with short to mid RP tachycardia. There is also wide-complex tachycardic episode which likely is SVT with aberrancy Echo (August 2023): CC echo report showed Normal LVEF 55-60%. Normal [...] Clinic in 6 months Ramiro Hugo MD [facility] Cardiac Electrophysiology [email or web address] Disclaimer: This note was dictated by speech recognition, and every effort has been made to prevent any error in trumpet player, however minor errors may be present This medical note was created with the assistance of artificial intelligence (AI) for documentationpurposes. The content has been reviewed and confirmed by the healthcare provider for accuracy and completeness. Patient consented to the use of audio recording and use of AI during their visit. [facility] Phone: 1(803) 249-255106-24-2025 Telephone encounter Note* Telephone Encounter - Juliane [...] states she has a heart appt in [place] (Hx Paroxysmal SVT) at 11:45am and will go to [facility] ER/ L&D after that to be assessed for Pre-e. Advised Pt message would be sent to KJ and if she had alternative guidance we would be in contact with her. Pt voiced understanding. Juliane Martin RN [facility]06-23-2025 Telephone encounter Note* Telephone Encounter - Jaquelin Hi APRN.CNM - 08/02/2024 2:30 PM EDT Agree with plan and would recommend appointment. Thank you, Jaquelin Hi APRN.CNM [facility]06-23-2025 Telephone encounter Note* Telephone Encounter - Juliane Martin RN - 08/02/2024 2:07 PM EDT 29w5d See [employer] message. Tried reaching patient via phone; however, went straight to voicemoil. Sent [employer] reply and advised she go straight to ER with symptoms listed. Juliane Martin RN [facility]06-18-2025 Telephone encounter Note* Telephone Encounter - Josefa Ricks RN - 07/28/2024 8:27 AM EDT 3rd risk assessment form submitted 07/28/24 Josefa Ricks RN [facility]06-18-2025 Miscellaneous Notes* Telephone Encounter - Josefa Ricks RN - 07/28/2024 8:27 AM EDT 3rd risk assessment form submitted 07/28/24 Joesfa Ricks RN documented in [facility] Progress note* Quick Notes - Yamila Ballard MD - 07/27/2024 1:58 PM EDT RR- VB No. LOF No. CTXS No. Movement: present. Other c/o: heartburn, pepcid not helping Medication list reviewed. SENSITIVE EXAM: Sensitive exam not performed. Physical Exam See Flow Sheet Abd: soft, nontender, gravid Ext: edema: Trace A/P 28w6d Estimated Date of Delivery: 10/13/24 Assessment & Plan 28 weeks gestation of ([facility]) Supervision of other high risk pregnancies, second trimester ([facility]) Rh negative state in antepartum period ([facility]) rh prohylaxis Need for vaccination desires tdap [...] delivery Heartburn during , antepartum, third trimester ([facility]) d/c pepcid, trial prevacid Yamila Ballard M.D. [facility]06-17-2025 Miscellaneous Notes* Quick Notes - Yamila Ballard MD - 07/27/2024 1:58 PM EDT RR- VB No. LOF No. CTXS No. Movement: present. Other c/o: heartburn, pepcid not helping Medication list reviewed. SENSITIVE EXAM: Sensitive exam not performed. Physical Exam See Flow Sheet Abd: soft, nontender, gravid Ext: edema: Jason A/P 28w6d Estimated Date of Delivery: 10/13/24 Assessment & Plan 28 weeks gestation of ([facility]) Supervision of other high risk pregnancies, second trimester ([facility]) Rh negative state in antepartum period ([facility]) rh prohylaxis Need for vaccination desires tdap [...] prevacid Yamila Ballard M.D. documented [facility]25 NoteHNO ID: [id number] Author: IVETH KOHLI RN Service: ? Author [...] severely ill: Yes Patient denies history of Guillain-Middletown Syndrome (a severe paralytic illness): Yes Tdap [...] given her Rhophylac pocket card. Iveth Kohli [facility]06[facility] History of Present illness Narrative* Ivteh Kohli RN - 07/27/2024 1:22 PM EDT [...] severely ill: Yes Patient denies history of Guillain-M[place]let[place] Syndrome (a severe paralytic illness): Yes Tdap [...] card. Iveth Kohli RN documented in [facility] Instructions* Patient Instructions* Joyce Clark MA - 07/27/2024 1:20 PM EDT SEQUENTIAL SCREENINGS The [facility] offers sequential screenings for women who are [...] testing. It will require an appointment withour tv technician. This is not an ultrasound performed [...] the above symptoms, contact our office at [phone] and ask to speak with anurse. After hours, you can call [facility] at [phone] OR call [facility] at [phone] ask to have the doctor front counter clerk paged. If you consider this an emergency, dial 7-2-0 or go to your nearest emergency department. NEED HELP? Are you dealing with a violent or abusive relationship? Are you a victim of rape or sexual assult? Call [facility] ([place]) 24 hour Crisis Hotline: 671.265.6015 or 679-163-0479. MANUAL Your Guide to a Healthy manual is now on-line. Visit [email or web address] to download your free copy documented in this encounter[facility]05[facility]2025 NoteHNO ID: [id number] Author: JAQUELIN HI APRN.CNM Service: ? Author Type: Buckle Attacher Type: Progress Notes Filed: 06/29/2024 15:21 Note Text:[facility]05-20-2025 NoteHNO ID: [id number] Author: JAQUELIN HI APRN.CNM Service: ? Author Type: Buckle Attacher Type: Progress Notes Filed: 06/29/2024 15:32 Note [...] and when to call RTO in 4 weeksL[facility]04-23-2025 Miscellaneous Notes* Telephone Encounter - Josefa Ricks RN - 06/02/2024 8:48 AM EDT 2nd risk assessment form submitted 06/02/24 Josefa Ricks RN documented in [facility] Telephone encounter Note * Telephone Encounter - Josefa Ricks RN - 06/02/2024 8:48 AM EDT 2nd risk assessment form submitted 06/02/24 Josefa Ricks RN [facility]04-22-2025 NoteHNO ID: [id number] Author: JAQUELIN HI APRN.CNM Service: ? Author Type: Buckle Attacher Type: Progress Notes Filed: 06/29/2024 15:21 Note Text:[facility]04-22-2025 History of Present illness Narrative* Jaquelin Hi [...] weeks Jaquelin Hi APRN.CNM documented in this [facility]04[facility]2025 Instructions* Patient Instructions* Jaquelin Hi APRN.CNM - 06/01/2024 9:43 AM EDT [facility] [address] [place] [address] [facility] [address] [place], [place] [address] [facility] [address] [place] [address] [facility] [address] [place] [address] [email or web address] [facility] [address] [place] [address] [facility] [address] [place] [address] [email or web address] [address], [place] [address] [email or web address] [phone] [facility] [address] [place], [place] [phone] [facility] [address] [address] [place] office also [phone] [email or web address] [facility] [phone] [facility]7 [facility] [address]. [address] [place] [address] ACUPUNCTURISTS [facility] - [address] [address] [email or web address] [facility] [address] [place] [address] [email or web address] SIGNS AND SYMPTOMS OF LABOR 1. Contractions every 10 minutes or more often 2. Clear, pink, or brownish fluid (water) leaking from vagina 3. Feeling that baby is pushing down, pressure 4. Low, dull backache 5. Cramps that feel like a period 6. Cramps with or without diarrhea If you notice any of the above symptoms, contact our office at [phone] and ask to speak with anurse. After hours, you can call doctors registry at [phone] OR call [facility] at [phone] ask to have the doctor front counter clerk paged. If you consider this an emergency, dial 10-11- or go to your nearest emergency department. NEED HELP? Are you dealing with a violent or abusive relationship? Are you a victim of rape or sexual assult? Call [facility] ([place]) 24 hour Crisis Hotline: 954.281.5111 or 724-400-5077. MANUAL Your Guide to a Healthy manual is now on-line. Visit [email or web address] to download your free copy documented in this encounterMer[facility]04-01-2025 Telephone encounter Note * Telephone Encounter - Antionette Ward RN - 05/11/2024 12:39 PM EDT Order signed and faxed. Antionette Ward RN [facility]04-01-2025 Miscellaneous Notes* Telephone Encounter - Antionette Ward RN - 05/11/2024 12:39 PM EDT Order signed and faxed. Antionette Ward RN * Telephone Encounter - Chantelle Marquis RN - 05/10/2024 8:51 AM EDT Received breast pump RX from [employer]. To HILARIA to sign. Chantelle Marquis RN documented in this encounterMer[facility] Health [facility]. [facility]03-31-2025 Telephone encounter Note * Telephone Encounter - Chantelle Marquis RN - 05/10/2024 8:51 AM EDT Received breast pump RX from [employer]. To HILARIA to sign. Chantelle Marquis RN [facility]03-25-2025 Progress note* Quick Notes - Jaquelin Hi [...] RTO in 4 weeks Jaquelin Hi APRN.CNM [facility]03-25-2025 Miscellaneous Notes* Quick Notes - Jaquelin Hi [...] weeks Jaquelin Hi APRN.CNM documented in this encounterMercy Health St. [facility]03-25-2025 Instructions* Patient Instructions* Steven Cruz MA - 05/04/2024 2:31 PM EDT SEQUENTIAL SCREENINGS The [facility] offers sequential screenings for women who are [...] testing. It will require an appointment withour tv technician. This is not an ultrasound performed [...] the above symptoms, contact our office at [phone] and ask to speak with anurse. After hours, you can call doctors registry at [phone] OR call [facility] at [phone] ask to have the doctor front counter clerk paged. If you consider this an emergency, dial 9-0-1 or go to your nearest emergency department. NEED HELP? Are you dealing with a violent or abusive relationship? Are you a victim of rape or sexual assult? Call [facility] ([place]) 24 hour Crisis Hotline: 992.143.9613 or 021-676-9440. MANUAL Your Guide to a Healthy manual is now on-line. Visit [email or web address] to download your free copy documented in this encounterMercy Health St. [facility]02-26-2025 Progress note* Quick Notes - Jaquelin Hi [...] RTO in 4 weeks Jaquelin Hi APRN.CNM [facility]02-26-2025 Miscellaneous Notes* Quick Notes - Jaquelin Hi [...] weeks Jaquelin Hi APRN.CNM documented in this encounterMercy Health St. [facility]02-26-2025 Instructions* Patient Instructions* Alisha Jordan LPN - 04/07/2024 2:45 PM EST SEQUENTIAL SCREENINGS The [facility] offers sequential screenings for women who are [...] testing. It will require an appointment withour tv technician. This is not an ultrasound performed [...] the above symptoms, contact our office at [phone] and ask to speak with anurse. After hours, you can call doctors registry at [phone] OR call [facility] at [phone] ask to have the doctor front counter clerk paged. If you consider this an emergency, dial 91-2 or go to your nearest emergency department. NEED HELP? Are you dealing with a violent or abusive relationship? Are you a victim of rape or sexual assult? Call [facility] ([place]) 24 hour Crisis Hotline: 406.363.1317 or 916-490-7352. MANUAL Your Guide to a Healthy manual is now on-line. Visit [email or web address] to download your free copy documented in this encounterMercy Health St. [facility]02-05-2025 Progress note* Quick Notes - Jaquelin Hi APRN.FRANDY - 03/17/2024 3:09 PM EST [facility] [...] with more than 50% of the total rohj-ew-chia time of the visit in counseling / coordination of care. [facility]02-05-2025 Miscellaneous Notes* Quick Notes - Jaquelin Hi [...] with more than 50% of the total ljmv-ya-gxrb time of the visit in counseling / coordination of care. documented in this encounterMercy Health St. Charles Hospital02-04-2025 NoteHNO ID: [id number] Author: JAQUELIN HI APRN.CNM Service: ? Author Type: Buckle Attacher Type: Progress Notes Filed: 03/17/2024 15:23 Note Text:[facility]02-04-2025 History of Present illness Narrative* Jaquelin Hi APRN.CNM - 03/16/2024 10:30 AM EST documented in this encounterMercy Health St. [facility]01-30-2025 Telephone encounter Note * Telephone Encounter - Chantelle Rodriguez RN - 03/11/2024 10:56 AM EST 1st risk assessment form submitted 03/11/2024. Chantelle Rodriguez RN [facility]01-30-2025 Miscellaneous Notes* Telephone Encounter - Chantelle Rodriguez RN - 03/11/2024 10:56 AM EST 1st risk assessment form submitted 03/11/2024. Chantelle Rodriguez RN documented in this encounterMercy Health St. Charles Hospital01-29-2025 XmatOUSM-FYT-5 (AGENT OF COVID-19) RNA: Not detected INFLUENZA A RNA: Detected INFLUENZA B RNA: Not detected RESPIRATORY SYNCYTIAL VIRUS (RSV) RNA: Not detectedCalais Regional HospitalComment on above:Performed By: #### [id number] ####[facility] LABCLIA [id number] [place] [address] [facility] [id number] Note* Addendum Note - Jaquelin Hi APRN.CNM - 03/10/2024 12:01 PM ESTAddended by: JAQUELIN HI on: 03/10/2024 12:01 PM Modules accepted: Orders [facility]01-29-2025 Miscellaneous Notes* Addendum Note - Jaquelin Hi APRN.CNM - 03/10/2024 12:01 PM ESTAddended by: JAQUELIN HI on: 03/10/2024 12:01 PM Modules accepted: Orders * Quick Notes - Jaquelin Hi APRN.CNM - 03/10/2024 11:58 AM EST YENNY, see progress note. LMP consistent with US today. Jaquelin Hi APRN.CNM documented in this encounterMercy Health St. Charles Hospital01-29-2025 Progress note* Quick Notes - Jaquelin Hi APRN.CNM - 03/10/2024 11:58 AM EST YENNY, see progress note. LMP consistent with US today. Jaquelin Hi APRN.CNM [facility]01-28-2025 NoteHNO ID: [id number] Author: JAQUELIN HI APRN.CNM Service: ? 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 Gender: Male PAST MEDICAL HISTORY Diagnosis Date Anemia Chronic tonsillitis Depression 10/08/2016 Gall stone 07/2022 cholecystectomy after delivery GERD (gastroesophageal reflux disease) H/O shoulder dystocia in prior , currentl (more content not included)...[facility]01-28-2025 History of Present illness Narrative* [facility]N.[facility] - 03/09/2024 11:52 AM EST INITIAL OB [...] Status: Partner: Name: Te Age: 24 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 As applicable, any other physician, advance practice provider, medical student, or other health professional student that will be observing or involved in the sensitive examination for educational or training purposes was discussed with the Patient or Authorized Women'S Ministry Director. The Patient or Authorized Women'S Ministry Director has agreed to proceed with the sensitive [...] 03/05/2024 1:43 PM EST documented in this encounterMercy Health St. [facility]01-24-2025 NoteHNO ID: [id number] Author: JAQUELIN HI APRN.CNM Service: ? Author Type: Buckle Attacher Type: Progress Notes Filed: 03/10/2024 11:59 Note Text:[facility]01-24-2025 Instructions* Patient Instructions* Jaquelin Hi APRN.CNM - 03/05/2024 1:43 PM EST Please select the following link to access the [facility] Your Guide to a Healthy . [email or web address] documented in this encounterMercy Health St. Charles [facility]01-16-2025 NoteHNO ID: [id number] Author: LILLIAN ROCHA LPN Service: ? Author [...] seen in the Emergency Department (ED) Location: [facility] Date: 02/18/2024 Reason for ED Visit: [...] pt she is feeling better. Lillian Rocha [facility]01-16-2025 History of Present illness Narrative* Lillian Rocha LPN - 02/26/2024 10:31 AM EST ED Follow-Up Note Provider Action / FYI: Call completed by: FREDERICK Patient seen in ED: Out of Network ED Contact made with Patient: Yes The patient was identified by Name and Date of . Discussed Care with: patient Patient was seen in the Emergency Department (ED) Location: [facility] Date: 02/18/2024 Reason for ED Visit: [...] 26, 2024 10:19 AM documented in this encounterMercy Health St. Charles Hospital01-16-2025 NoteHNO ID: [id number] Author: LILLIAN ROCHA LPN Service: ? Author Type: LICENSED NURSE Type: Progress Notes Filed: 02/26/2024 10:20 Note Text: ED Follow-Up Note Provider Action / FYI: Call completed by: FREDERICK Patient seen in ED: Out of Network ED Contact made with Patient: No, left message. Lillian Rocha LPN February 26, 2024 10:19 AMCalais Regional Hospital01-16-2025 NotePatient Outreach (AGFAMPLE) KEAGAN ALICIA ([id number]) 4 F Date Time Provider Department 02/26/24 [...] seen in the Emergency Department (ED) Location: [facility] Date: 02/18/2024 Reason for ED Visit: [...] Date Reviewed: 12/26/2023 Reviewed by: Rachell Amador APRN.BLOOD TESTER FOWL - Fully Assessed Reason for Visit: ER F/U [41] Cmt: [facility] Petty 02/18/2024 Prescriptions as of 02/26/2024 - metoprolol [...] EST Noted and agree. Prabhu Ortez MD [facility]01-09-2025 Miscellaneous Notes* Telephone Encounter - Prabhu Ortez MD - 02/19/2024 4:23 PM EST Noted and agree. Prabhu Ortez MD * Telephone Encounter - Chantelle Marquis RN - 02/19/2024 4:09 PM EST Spoke with patient. LMP 01/06 approximately 6w1d. Patient was seen at [facility] ER in [place]. She was given IV fluids and a [...] LMP. Juliane Martin RN documented in this encounterMercy Health St. [facility]01-09-2025 Telephone encounter Note * Telephone Encounter - Chantelle Marquis RN - 02/19/2024 4:09 PM EST Spoke with patient. LMP 01/06 approximately 6w1d. Patient was seen at [facility] ER in [place]. She was given IV fluids and a script for Zofran. No episodes of vomiting since ER visit on Friday.Scheduled patient's NOB visit appropriately and sent additional information regarding N/V in . Chantelle Marquis RN [facility]01-09-2025 Telephone encounter Note* Telephone Encounter - Juliane Martin RN - 02/19/2024 3:49 PM EST Left message for patient to call office. Need to rescheduled Pt's OB appt as she needs a NEW OB 1STEXAM as well as noting LMP. Juliane Martin RN [facility]01-08-2025 Emergency department Note* Eugene Mccormick, BOND TRADER-BLOOD TESTER FOWL - 02/18/2024 10:46 AM EST Chief Complaint Patient presents with Abdominal Pain Upper abd pain with n/v/d x 3 days I feel dehydrated Patient History Past Medical History: Diagnosis Date Anxiety Depression PTSD (post-traumatic stress disorder) Past Surgical History: Procedure Laterality Date CARDIAC ELECTROPHYSIOLOGY PROCEDURE N/A 10/03/2023 Procedure: Ablation SVT (24711); Surgeon: Ramiro Hugo MD; Location: [facility] Cardiac Barley Steeper; Service: Electrophysiology; Laterality: N/A; CHOLECYSTECTOMY 06/17/2023 DR [...] performed using a different test methodology at [facility] than other [facility]. Direct result comparison should only be made within the same method. HCG, URINE, QUALITATIVE - Abnormal HCG, Urine POSITIVE (*) URINALYSIS WITH REFLEX CULTURE AND MICROSCOPIC - Abnormal Color, Urine Yellow Appearance, Urine Turbid (*) Specific [place], Urine 1.030 pH, Urine 6.0 Protein, Urine [...] Abnormality Status --------- ------ Urinalysis with Reflex C...[[id number]] Abnormal Final result Extra Urine Emerson Tube[[id number]] In process Please view results for these tests on the individual orders. EXTRA URINE EMERSON TUBE US PELVIS OB TRANSABDOMINAL W TRANSVAGINAL UP TO 1ST TRIMESTER Final Result 1. Single live intrauterine . 2. Estimated gestational age: 6 weeks 1 days. LUZ: 10/12/2024. 3. Small subchorionic hemorrhage. MACRO: None Signed by: Samia Valencia 02/18/2024 1:00 PM Dictation workstation: [id number] Medical Decision Making ED COURSE: This patient [...] JONAH Li 02/18/24 1436 documented in this encounterChillicothe [facility] Work Phone: 1(258) 716-372001-08-2025 Physician Emergency department Note* JONAH Li - 02/18/2024 10:46 AM EST Chief Complaint Patient presents with Abdominal Pain Upper abd pain with n/v/d x 3 days I feel dehydrated Patient History Past Medical History: Diagnosis Date Anxiety Depression PTSD (post-traumatic stress disorder) Past Surgical History: Procedure Laterality Date CARDIAC ELECTROPHYSIOLOGY PROCEDURE N/A 10/03/2023 Procedure: Ablation SVT ([id number]); Surgeon: Ramiro Hugo MD; Location: [facility] Cardiac Barley Steeper; Service: Electrophysiology; Laterality: N/A; CHOLECYSTECTOMY 06/17/2023 DR [...] performed using a different test methodology at [facility] than other [facility]. Direct result comparison should only be made within the same method. HCG, URINE, QUALITATIVE - Abnormal HCG, Urine POSITIVE (*) URINALYSIS WITH REFLEX CULTURE AND MICROSCOPIC - Abnormal Color, Urine Yellow Appearance, Urine Turbid (*) Specific [place], Urine 1.030 pH, Urine 6.0 Protein, Urine [...] Abnormality Status --------- ------ Urinalysis with Reflex C...[[id number]] Abnormal Final result Extra Urine Emerson Tube[[id number]] In process Please view results for these tests on the individual orders. EXTRA URINE EMERSON TUBE US PELVIS OB TRANSABDOMINAL W TRANSVAGINAL UP TO 1ST TRIMESTER Final Result 1. Single live intrauterine . 2. Estimated gestational age: 6 weeks 1 days. LUZ: 10/12/2024. 3. Small subchorionic hemorrhage. MACRO: None Signed by: Samia Valencia 02/18/2024 1:00 PM Dictation workstation: [id number] Medical Decision Making ED COURSE: This patient [...] n/v/d #3 hypogylcemia JONAH Li 02/18/24 1436 [facility] Work Phone: 1(983) 853-927412-17-2024 History of Present illness Narrative* Ramiro Hugo [...] Smokes marijuana every other day FamHx: pGF RI in 30 Objective Current Outpatient Medications Medication [...] normal. My Interpretation of Reviewed Study(s): 14-day supervisor assembling (July 2023): Predominant rhythm sinus with average [...] Clinic in 6 months Ramiro Hugo MD [facility] Cardiac Electrophysiology [email or web address] Disclaimer: This note was dictated by speech recognition, and every effort has been made to prevent any error in trumpet player, however minor errors may be present documented in this [facility] Work Phone: 1(347) 974-509511-15-2024 NoteHNO ID: [id number] Author: RACHELL AMADOR APRN.ULISSES Service: ? Author Type: Nurse Practitioner Type: Progress Notes Filed: 12/26/2023 11:34 Note Text: [place] [address] Date of Evaluation: 12/26/2023 Patient Name: Keagan [...] HISTORY Procedure Laterality Date CHOLECYSTECTOMY HX 06/17/2023 [facility] IUD REMOVAL 09/15/2023 PT ED HEART [...] Present illness Narrative* Rachell Amador APRN.CNP - 12/26/2023 10:16 AM EST Images from the [place] [address] Date of Evaluation: 12/26/2023 Patient Name: Keagan [...] HISTORY Procedure Laterality Date CHOLECYSTECTOMY HX 06/17/2023 [facility] IUD REMOVAL 09/15/2023 PT ED HEART [...] 12/25/2024) for well adult exam. Rachell Amador APRN.BLOOD TESTER FOWL documented in this encounterMercy Health St. [facility]10-30-2024 History of Present illness Narrative* Norbert Noriega [...] focal deficits Reviewed Study(s): Outside echocardiogram from [facility] 08/25/2023 CONCLUSIONS: - Exam indication: Palpitations - [...] with me as needed Norbert Fernandes MD [facility] Interventional Cardiology Endovascular Interventions [email or web address] Disclaimer: This note was dictated by speech recognition, and every effort has been made to prevent any error in trumpet player, however minor errors may be present documented in this [facility] Work Phone: 1(113) 290-390210-14-2024 NoteHNO ID: [id number] Author: SANDRA COLE APRN.ULISSES Service: ? 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 Keagan Alicia is a 23 year old [...] Births2 Comment: No DANDCs for missed abs Manager Part History LMP: 09/15/2023 (Exact Date), Having periods Age at Menarche: Age at First : Age at Menopause: Manager Part History Comments: Sexual Activity: Yes; Male Contraception: Pill PAST MEDICAL HISTORY Diagnosis Date Anemia Chronic tonsillitis Depression 10/08/2016 Gall stone 07/2022 cholecystectomy after delivery GERD (gastroesophageal reflux disease) Hemorrhoids History of back problems Kidney stones Paroxysmal SVT (supraventricular tachycardia) (HCC) Postoperative pulmonary embolism (HCC) 06/2023 Psychiatric disorder depression, anxiety and PTSD PAST SURGICAL HISTORY Procedure Laterality Date CHOLECYSTECTOMY HX 06/17/2023 [facility] IUD REMOVAL 09/15/2023 TONSILLECTOMY HX FAMILY [...] discussed with the Patient or Patient's Authorized Women'S Ministry Director. As applicable, any other physician, advance practice provider, medical student, or other health professional student that will be observing or involved in the sensitive examination for educational or training purposes was discussed with the Patient or Authorized Women'S Ministry Director. The Patient or Authorized Women'S Ministry Director has agreed to proceed with the sensitive examination. (Sensitive examination includes inspection and/or palpation of the breasts, pelvis, prostate and anorectal regions). EXAM: LMP 09/15/2023 GENERAL: pleasant, female in no apparent distress HEENT: Normocephalic, atraumatic, mucus membranes moist, and no lesions CHEST: Normal inspiratory effort ABDOMEN: soft, non-tender, and no masses PELVIC: external genitalia normal, normal Bartholin's glands, urethra, [place]'s glands, no vulvar lesions, no cervical lesions, good vaginal support, physiologic discharge present, normal appearing perineal body and perianal region BIMANUAL: deferred NEURO: alert and oriented x3,exam grossly non-focal EXTREMITIES: normal ASSESSMENT/PLAN: 1. Vaginal discharge - ICD9: 623.5, ICD10: N89.8 Will notify patient of test results. - ALMITA/TRICHOMONAS NAAT - BACTERIAL VAGINOSIS NAAT - GONORRHEA/CHLAMYDIA NAAT If results are negative recommend vaginal pH boat carpenter mechanic. Sandra Cole APRN.ULISSES Medical Decision Making: Problems: Moderate: New problem with uncertain prognosis Data: Unique test(s) ordered: 3+ Risk: Low: Low risk from testing/treatment Medical Decision Making Level: 4 - ModerateLicking Memorial Hospital10-14-2024 History of Present illness Narrative* Sandra Cole APRN.BLOOD TESTER FOWL - 11/24/2023 12:41 PM EDT 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 Keagan Alicia is a 23 year old female who presents for problem visit vaginal discharge, odor for2 month(s). HPI: pt states that she has had thicker white discharge w/ odor and some burning off/on over the past 2 months. She tried OTC yeast treatment with no resolve. OB History T1 L2 SAB3 IAB0 Ectopic0 Multiple0 Live Births2 Comment: No D&Cs for missed abs Manager Part History LMP: 09/15/2023 (Exact Date), Having periods Age at Menarche: Age at First : Age at Menopause: Manager Part History Comments: Sexual Activity: Yes; Male Contraception: Pill PAST MEDICAL HISTORY Diagnosis Date Anemia Chronic tonsillitis Depression 10/08/2016 Gall stone 07/2022 cholecystectomy after delivery GERD (gastroesophageal reflux disease) Hemorrhoids History of back problems Kidney stones Paroxysmal SVT (supraventricular tachycardia) (HCC) Postoperative pulmonary embolism (HCC) 06/2023 Psychiatric disorder depression, anxiety and PTSD PAST SURGICAL HISTORY Procedure Laterality Date CHOLECYSTECTOMY HX 06/17/2023 [facility] IUD REMOVAL 09/15/2023 TONSILLECTOMY HX FAMILY [...] discussed with the Patient or Patient's Authorized Women'S Ministry Director. As applicable, any other physician, advance practice provider, medical student, or other health professional student that will be observing or involved in the sensitive examination for educational or training purposes was discussed with the Patient or Authorized Women'S Ministry Director. The Patient or Authorized Women'S Ministry Director has agreed to proceed with the sensitive examination. (Sensitive examination includes inspection and/or palpation of the breasts, pelvis, prostate and anorectal regions). EXAM: LMP 09/15/2023 GENERAL: pleasant, female in no apparent distress HEENT: Normocephalic, atraumatic, mucus membranes moist, and no lesions CHEST: Normal inspiratory effort ABDOMEN: soft, non-tender, and no masses PELVIC: external genitalia normal, normal Bartholin's glands, urethra, [place]'s glands, no vulvar lesions, no cervical lesions, good vaginal support, physiologic discharge present, normal appearing perineal body and perianal region BIMANUAL: deferred NEURO: alert and oriented x3,exam grossly non-focal EXTREMITIES: normal ASSESSMENT/PLAN: 1. Vaginal discharge - ICD9: 623.5, ICD10: N89.8 Will notify patient of test results. - ALMITA/TRICHOMONAS NAAT - BACTERIAL VAGINOSIS NAAT - GONORRHEA/CHLAMYDIA NAAT If results are negative recommend vaginal pH boat carpenter mechanic. Sandra Cole APRN.CNP Medical Decision Making: Problems: Moderate: New problem with uncertain prognosis Data: Unique test(s) ordered: 3+ Risk: Low: Low risk from testing/treatment Medical Decision Making Level: 4 - Moderate documented in this encounterMercy Health St. [facility]09-05-2024 Instructions* Patient Instructions* Faiza Mishra APRN.CNP - 10/16/2023 7:18 AM EDT Thank you for seeing me in clinic today. As we discussed, my recommendations are as follows: 1.colestipol 1 gram twice daily with meals If you have any questions about the above treatment plan, please do not hesitate to call the officeor send me a Reebeet message. documented in this encounterMercy Health St. [facility]09-05-2024 History and physical note * Faiza Mishra APRN.BLOOD TESTER FOWL - 10/16/2023 7:00 AM EDT [facility] [...] postoperative status. LABS BASIC METABOLIC PANEL Order: [id number] Component Ref Range & Units 2 wk [...] race variable for the IDMS-Traceable creatinine methods. https://jasn.asnjournals.org/content/early//ASN.8843600205 Calcium 8.6 - 10.3 mg/dL 9.2 ntains abnormal data COMPLETE BLOOD COUNT Order: [id number] Component Ref Range & Units 2 wk [...] Abs Lymph 1.00 - 4.00 k/uL 1.48 Slope% % 10.7 Abs Slope <0.87 k/uL 0.38 Eosin% % 0.3 Abs [...] stones No date: Paroxysmal SVT (supraventricular tachycardia) ([facility]) 06/2023: Postoperative pulmonary embolism ([facility]) No date: Psychiatric disorder Comment: depression, anxiety and PTSD PAST SURGICAL HISTORY 06/17/2023: CHOLECYSTECTOMY HX Comment: [facility] 09/15/2023: IUD REMOVAL No date: TONSILLECTOMY [...] TABLET I spent more than 30 minutes clbe-iu-vydh with the patient and over half the time was devoted to counseling and/or coordination of care. This note was dictated using vip.com speech recognition software and may contain some errors that were a result of the program not accurately transcribing what was dictated. I have communicated my name and active licensure. The patient's identity and physical location wereverified at the time of this visit. Either the patient or their legal union representative has been informed of the risks and benefits of -- and alternatives to -- treatment through a remote evaluation andconsents to proceed with the evaluation remotely. Faiza Mishra APRN.CNP [facility]09-05-2024 History and physical note* Faiza Mishra APRN.CNP [...] postoperative status. LABS BASIC METABOLIC PANEL Order: [id number] Component Ref Range & Units 2 wk [...] race variable for the IDMS-Traceable creatinine methods. https://jasn.asnjournals.org/content/early//ASN.4548284903 Calcium 8.6 - 10.3 mg/dL 9.2 ntains abnormal data COMPLETE BLOOD COUNT Order: [id number] Component Ref Range & Units 2 wk [...] Abs Lymph 1.00 - 4.00 k/uL 1.48 Slope% % 10.7 Abs Slope <0.87 k/uL 0.38 Eosin% % 0.3 Abs [...] stones No date: Paroxysmal SVT (supraventricular tachycardia) ([facility]) 06/2023: Postoperative pulmonary embolism ([facility]) No date: Psychiatric disorder Comment: depression, anxiety and PTSD PAST SURGICAL HISTORY 06/17/2023: CHOLECYSTECTOMY HX Comment: [facility] 09/15/2023: IUD REMOVAL No date: TONSILLECTOMY [...] TABLET I spent more than 30 minutes euka-ks-ynkb with the patient and over half the time was devoted to counseling and/or coordination of care. This note was dictated using vip.com speech recognition software and may contain some errors that were a result of the program not accurately transcribing what was dictated. I have communicated my name and active licensure. The patient's identity and physical location wereverified at the time of this visit. Either the patient or their legal union representative has been informed of the risks and benefits of -- and alternatives to -- treatment through a remote evaluation andconsents to proceed with the evaluation remotely. Faiza Mishra APRN.CNP documented in this encounter[facility] Nurse Note* Princess Marc RN - 10/03/2023 4:10 PM EDT RN notified Dr. Hugo patient states pain has improved to 7/10, resting comfortably, vitals stable, groin site stable, thigh soft and nontender, per MD pt ok to go home. Discharge instructions reviewed again, peripheral IV removed, belongings returned, patient meets discharge criteria, pt discharge via wheelchair by director of cardiac cath lab RN [facility] Work Phone: 1(773) 333-562108-23-2024 Nurse Note* Princess Marc RN - 10/03/2023 4:10 PM EDT RN notified Dr. Hugo patient states pain has improved to 7/10, resting comfortably, vitals stable, groin site stable, thigh soft and nontender, per MD pt ok to go home. Discharge instructions reviewed again, peripheral IV removed, belongings returned, patient meets discharge criteria, pt discharge via wheelchair by director of cardiac cath lab RN * Princess Marc RN - 10/03/2023 [...] EDT POCT test negative documented in this [facility] Work Phone: 1(453) 846-905908-23-2024 Nurse Note* Princess Marc RN - 10/03/2023 [...] continue to monitor patient at this time. [facility] Work Phone: [phone]) 545-862708-23-2024 Nurse Note* Princess Marc RN - 10/03/2023 3:00 PM EDT RN called Dr. Hugo to clarify eliquis orders for discharge. Per Dr. Hugo pt WILL NOT resume eliquisupon discharge, patient notified and verbalized understanding. [facility] Work Phone: 1(245) 740-885208-23-2024 Hospital Discharge instructions* Discharge Instructions* Princess Marc [...] SHOULD CALL 911 IMMEDIATELY.\ documented in this [facility] Work Phone: 1(948) 747-832608-23-2024 Miscellaneous Notes* Post-Procedure Note - Ramiro Hugo MD - 10/03/2023 7:50 AM EDT Physician Transition of Care Summary Cardiac Electrophysiology Lab/OR Procedure Date: 10/03/2023 Attending: * Ramiro Hugo - Primary Resident/Fellow/Other Manager Marketing Sales: Surgeons and Role: * No surgeons found with a matching role * Indications: Pre-op Diagnosis * SVT (supraventricular tachycardia) (CMS-HCC) [I47.10] Post-procedure diagnosis: Post-op Diagnosis * SVT (supraventricular tachycardia) (CMS-HCC) [I47.10] Procedure(s): Ablation SVT [id number]) [id number] - [place] COMPRE EP EVAL ABLTJ 3D MAPG [place] [...] symptoms, or recent severe chest pain) call [place]:[phone] For full procedure note/study review please go to Chart review --> Cardiology tab --> Electrophysiology procedure for 10/03/2023 Complications: None Stents/Implants: Implants No implant documentation for this case. Anticoagulation/Antiplatelet Plan: None Estimated Blood Loss: * No values recorded between 07/11/2023 2:17 PM and 07/11/2023 7:50 PM * Anesthesia: General Anesthesia Staff: Anesthesiologist: Bishnu Ross MD WELL HEAD PUMPER: CARO Wang Any Specimen(s) Removed: Order Name Source Comment Collection Info Order Time COAGULATION SCREEN Blood, Venous 10/03/2023 6:33 AM Release result to [facility] Immediate Disposition: Monitor for 2-3hrs post anesthesia and bed rest, and plan for Discharge home 10/03/23 Ramiro Hugo MD [facility] Cardiac Electrophysiology Disclaimer: This note was dictated by speech recognition, and every effort has been made to prevent any error in trumpet player, however minor errors may be present documented in this [facility] Work Phone: 1(345) 425-872008-23-2024 Note* Post-Procedure Note - Ramiro Hugo MD - 10/03/2023 7:50 AM EDT Physician Transition of Care Summary Cardiac Electrophysiology Lab/OR Procedure Date: 10/03/2023 Attending: Nisa Hugo - Primary Resident/Fellow/Other Manager Marketing Sales: Surgeons and Role: * No surgeons found with a matching role * Indications: Pre-op Diagnosis * SVT (supraventricular tachycardia) ([facility]) [I47.10] Post-procedure diagnosis: Post-op Diagnosis * SVT (supraventricular tachycardia) (CMS-HCC) [I47.10] Procedure(s): Ablation SVT [id number]) [id number] - [place] COMPRE EP EVAL ABLTJ 3D MAPG [place] [...] symptoms, or recent severe chest pain) call [place]:[phone] For full procedure note/study review please go to Chart review --> Cardiology tab --> Electrophysiology procedure for 10/03/2023 Complications: None Stents/Implants: Implants No implant documentation for this case. Anticoagulation/Antiplatelet Plan: None Estimated Blood Loss: * No values recorded between 07/11/2023 2:17 PM and 07/11/2023 7:50 PM * Anesthesia: General Anesthesia Staff: Anesthesiologist: Bishnu Ross MD WELL HEAD PUMPER: Laura M Dzurik, BOND TRADER-WELL HEAD PUMPER Any Specimen(s) Removed: Order Name Source Comment Collection Info Order Time COAGULATION SCREEN Blood, Venous 10/03/2023 6:33 AM Release result to [facility] Immediate Disposition: Monitor for 2-3hrs post anesthesia and bed rest, and plan for Discharge home 10/03/23 Ramiro Hugo MD [facility] Cardiac Electrophysiology Disclaimer: This note was dictated by speech recognition, and every effort has been made to prevent any error in trumpet player, however minor errors may be present [facility] Work Phone: 1(162) 759-992108-23-2024 History and physical note* Ramiro Hugo MD [...] Assessment/Plan Assessment & Plan SVT (supraventricular tachycardia) ([facility]) Plan for EP study and ablation I spent 20 minutes in the professional and overall care of this patient. Ramiro Hugo MD [facility] Work Phone: 1(802) 142-209408-23-2024 History and physical note* Ramiro Hugo MD [...] Assessment/Plan Assessment & Plan SVT (supraventricular tachycardia) ([facility]) Plan for EP study and ablation I spent 20 minutes in the professional and overall care of this patient. Ramiro Hugo MD [facility] Work Phone: [phone]) 502-190008-23-2024 Nurse Note* Princess Marc RN - 10/03/2023 7:19 AM EDT POCT test negative [facility] Work Phone: 1(896) 226-700608-19-2024 Nurse Note* Seema Bowman RN - 09/29/2023 [...] N/A Last Colonoscopy: None Seema Bowman RN [facility]08-19-2024 Nurse Note* Seema Bowman RN - 09/29/2023 [...] None Seema Bowman RN documented in this encounterMer[facility]. [facility]08-19-2024 History of Present illness Narrative* Conor Duarte MD - 09/29/2023 2:36 PM EDT HISTORY AND PHYSICAL Keagan Ricki 2000 REFERRING PHYSICIAN: Froilan Chance* CHIEF COMPLAINT: [...] the surgeon. She was seen by her CABLE STRETCHER AND TESTER physician who got her into see me [...] PAST SURGICAL HISTORY 06/17/2023: CHOLECYSTECTOMY HX Comment: [facility] 09/15/2023: IUD REMOVAL No date: TONSILLECTOMY [...] (97.6 F), height 160 cm (5' 3), kaizvp90.9 kg (114 lb 6.4 oz), last menstrual [...] will be forwarded to Dr. Rachell Amador, NOA.BLOOD TESTER FOWL. Return to Clinic: The patient is instructed to follow-up with me as needed. Conor Duarte III, MD documented in this encounterMer[facility]08-13-2024 History of Present illness Narrative* Mary Jo [...] some nausea - continue with zofran PRN [place] diet reviewed I have reviewed and updated past medical and surgical history, medications and allergies. Mary Jo Gee MD documented in this encounterMer[facility]08-08-2024 History of Present illness Narrative* Barbi Tian, BOND TRADER.BLOOD TESTER FOWL - 09/18/2023 10:07 AM EDT Manager Speech offered: Patient declines. Keagan Alicia is a [...] Births2 Comment: No D&Cs for missed abs Manager Part History LMP: 07/14/2023 (Approximate), IUD Age at Menarche: Age at First : Age at Menopause: Manager Part History Comments: Sexual Activity: Yes; Male Contraception: No contraception data on record PAST MEDICAL HISTORY No date: Anemia No date: Chronic tonsillitis 10/08/2016: Depression 07/2022: Gall stone Comment: cholecystectomy after delivery No date: Paroxysmal SVT (supraventricular tachycardia) (HCC) 06/2023: Postoperative pulmonary embolism (HCC) No date: Psychiatric disorder Comment: depression, anxiety and PTSD PAST SURGICAL HISTORY 06/17/2023: CHOLECYSTECTOMY HX Comment: [facility] No date: TONSILLECTOMY HX FAMILY HISTORY [...] and pain to incision sites Expanded ROS: CABLE STRETCHER AND TESTER: + heavy menstrual bleeding Allergies and current [...] external genitalia normal, normal Bartholin's glands, urethra, [place]'s glands, no vulvar lesions, no cervical lesions, [...] Level: 3 - Low documented in this encounterMer[facility]08-[facility]-2024 Telephone encounter Note * Telephone Encounter - Juliane Martin RN - 09/18/2023 8:29 AM EDT Pt spoke to MANAGER LVN this am and appt made for this morning with . Juliane Martin RN [facility]08-08-2024 Miscellaneous Notes* Telephone Encounter - Juliane Martin RN - 09/18/2023 8:29 AM EDT Pt spoke to MANAGER LVN this am and appt made for this morning with EH. Juliane Martin RN documented in this encounterMer[facility]08-07-2024 Telephone encounter Note * Telephone Encounter - Juliane Martin RN - 09/17/2023 8:40 AM EDT Left message for patient to call office. [employer] message sent to patient. Juliane Martin RN [facility]08-07-2024 Miscellaneous Notes* Telephone Encounter - Juliane Martin RN - 09/17/2023 8:40 AM EDT Left message for patient to call office. [employer] message sent to patient. Juliane Martin RN [...] advise. Iveth Kohli RN documented in this encounterMercy [facility] St. [facility]08-06-2024 Telephone encounter Note * Telephone Encounter - Mary Jo Chance MD - 09/16/2023 5:11 PM EDT Tylenol #3 ordered for her. [facility]08-06-2024 Telephone encounter Note* Telephone Encounter - Chantelle Marquis RN - 09/16/2023 2:06 PM EDT Patient has been taking Ibuprofen 800 MG every 6 hours and alternating with Tylenol 1,000 MG. Patient does not think that she has bruising. Patient states any other doctor would regarding giving stronger pain reliever. Please advise. Chantelle Marquis RN [facility]08-06-2024 Telephone encounter Note* Telephone Encounter - Juliane Martin RN - 09/16/2023 1:09 PM EDT Left message for patient to call office. Juliane Martin RN [facility]08-06-2024 Telephone encounter Note* Telephone Encounter - Mary [...] stronger then otc medications for this laparoscopy. [facility]08-06-2024 Telephone encounter Note* Telephone Encounter - Iveth [...] or concerns. Please advise. Iveth Kohli RN [facility]08-05-2024 NoteHNO ID: [id number] Author: YAA TREADWELL APRN.WELL HEAD PUMPER Service: Anesthesiology Author Type: Nurse Automotive Tire Technician Type: Anesthesia Procedure Notes Filed: 09/15/2023 08:51 Note Text: ANESTHESIOLOGY PROCEDURE NOTE Airway General Information Procedure Start Time/Medication Administration: 09/15/2023 8:40 AM Procedure End Time: 09/15/2023 8:43 AM Patient location during procedure: OR Timeout Performed Pre-procedure: timeout performed Consent Obtained: Yes Patient identity confirmed: arm band Staffing WELL HEAD PUMPER: Yaa Treadwell APRN.WELL HEAD PUMPER Performed by: WELL HEAD PUMPER Indications and Patient Condition Indications for airway [...] September 15, 2023 TIME: 8:50 AM CSN: [id number] History and physical note * Mary Jo [...] PAST SURGICAL HISTORY 06/17/2023: CHOLECYSTECTOMY HX Comment: [facility] No date: TONSILLECTOMY HX Current Outpatient [...] medications and allergies Mary Jo Barnett MD [facility]08-02-2024 History and physical note* Mary Jo Chance [...] PAST SURGICAL HISTORY 06/17/2023: CHOLECYSTECTOMY HX Comment: [facility] No date: TONSILLECTOMY HX Current Outpatient [...] Mary Jo Barnett MD documented in this encounterMer[facility]. [facility]07-31-2024 Telephone encounter Note * Telephone Encounter - Juliane Martin RN - 09/10/2023 9:53 AM EDT Request for 90 day supply. Pt last seen in office 08/19. Upcoming annual 02/03/24. Requested Prescriptions Pending Prescriptions Disp Refills norethindrone (AYGESTIN) 5 mg tablet [Pharmacy Med Name: NORETHINDRONE 5 MG TABLET] 90 tablet 1 Sig: TAKE 1 TABLET BY MOUTH EVERY DAY Juliane Martin RN [facility]07-31-2024 Miscellaneous Notes* Telephone Encounter - Juliane Martin RN - 09/10/2023 9:53 AM EDT Request for 90 day supply. Pt last seen in office 08/19. Upcoming annual 02/03/24. Requested Prescriptions Pending Prescriptions Disp Refills norethindrone (AYGESTIN) 5 mg tablet [Pharmacy Med Name: NORETHINDRONE 5 MG TABLET] 90 tablet 1 Sig: TAKE 1 TABLET BY MOUTH EVERY DAY Juliane Martin RN documented in this encounterMercy Health [facility]. [facility]07-29-2024 Telephone encounter Note * Telephone Encounter - Joyce Mishra PA-C - 09/08/2023 10:13 AM EDT Good morning, I re-reviewed patient's chart with staff anesthesiologist, Dr. Coker, in light of patient's recent appointment with her interior design coordinator Dr. Fernando Noriega on 09/03/23 (A&P included [...] Continue follow-up with hematology -Echocardiogram done at [facility] showed normal LV and RV function with no valvular abnormalities -For her planned surgery if she stays as inpatient recommend for her to wear SCDs at all times and to use prophylactic subcutaneous heparin. Also discussed early mobilization to prevent VTE # SVT -Follow-up with electrophysiology for outpatient SVT ablation Norbert Fernandes MD [facility] Interventional Cardiology Endovascular Interventions [email or web address] [facility]07-29-2024 Miscellaneous Notes* Telephone Encounter - Joyce Mishra PA-C - 09/08/2023 10:13 AM EDT Good morning, I re-reviewed patient's chart with staff anesthesiologist, Dr. Coker, in light of patient's recent appointment with her interior design coordinator Dr. Fernando Noriega on 09/03/23 (A&P included [...] Continue follow-up with hematology -Echocardiogram done at [facility] showed normal LV and RV function with no valvular abnormalities -For her planned surgery if she stays as inpatient recommend for her to wear SCDs at all times and to use prophylactic subcutaneous heparin. Also discussed early mobilization to prevent VTE # SVT -Follow-up with electrophysiology for outpatient SVT ablation Norbert Fernandes MD [facility] Interventional Cardiology Endovascular Interventions [email or web address] * Telephone Encounter - Chantelle Marquis RN - 09/05/2023 1:07 PM EDT Patient called the office back after viewing eucl3Dt message. States she never received any voicemail messages from our office. Confirmed that we had the correct phone number on file. Patient voiced her frustration. States her Banker Mason never stated that she would need to [...] the office. Surgery sheet given back to first front ventilator to cancel. Chantelle Marquis RN * Telephone [...] Joyce Mishra PA-C PACC documented in this encounterMer[facility]07-26-2024 Telephone encounter Note * Telephone Encounter - Chantelle Marquis RN - 09/05/2023 1:07 PM EDT Patient called the office back after viewing [employer] message. States she never received any voicemail messages from our office. Confirmed that we had the correct phone number on file. Patient voiced her frustration. States her Banker Mason never stated that she would need to post pone this surgery with DM. Advised that DM would return to the office next week to look at next available dates. Patient states she might look for another doctor to remove the IUD. Stated that we screwed it up once, what's keeping you guys from screwing it up again. Chantelle Marquis RN [facility]07-24-2024 Telephone encounter Note* Telephone Encounter - Chantelle Marquis RN - 09/03/2023 11:18 AM EDT 2nd message left for patient to call the office. Surgery sheet given back to first front ventilator to cancel. Chantelle Marquis RN [facility]07-23-2024 Telephone encounter Note* Telephone Encounter - Chantelle Marquis RN - 09/02/2023 2:04 PM EDT Left message for patient to call office. Chantelle Marquis RN [facility]07-23-2024 Telephone encounter Note* Telephone Encounter - Yamila [...] dates when she returns. Yamila Ballard MD [facility] Work Phone: 1(900) 679-807407-23-2024 Telephone encounter Note* Telephone Encounter - Joyce Misrha PA-C - 09/02/2023 10:15 AM EDT Good [...] She is following with electrophysiologyat , Dr. Hguo, and she is scheduled to have an [...] 10/03/23)? Thank you, Joyce Mishra PA-C PACC [facility]07-22-2024 Instructions* Patient Instructions* Joyce Mishra PA-C - 09/01/2023 9:25 AM EDT PATIENT PREOPERATIVE INSTRUCTIONS Froilan Chance* has scheduled you for your procedure at this surgery center: [facility]: [phone] -- [address] [address]. Please read below carefully for your personalized [...] Procedures: - YOU MUST HAVE A RESPONSIBLE SHOP ROUTER TAKE YOU HOME. A OCEAN FISHING GUIDE OR JOINTER OPERATOR CANNOT BE MADE A RESPONSIBLE SHOP ROUTER. - We recommend that a responsible person [...] Advance Directive, please fax a copy to [phone] or email to for it to be [...] your chart that day. documented in this encounterMercy Health St. [facility]07-22-2024 History and physical note * Joyce Mishra PA-C - 09/01/2023 9:20 AM EDT Images from the original note were not included. [facility] HISTORY AND PHYSICAL EXAMINATION SERVICE DATE: 09/01/2023 SERVICE TIME: 9:18 AM PRIMARY CARE PHYSICIAN: Rachell Amador APRN.BLOOD TESTER FOWL Assessment Patient has the following medical conditions [...] large neck Non-male patient STOP-Bang Score: 1 [id number] Score: Age: <65 Sex: female CHF history: No Hypertension history: No Stroke/TIA/thromboembolism history: Yes Vascular disease history: No Diabetes history: No [id number] Score: 3 ANESTHESIA FINDINGS: Intubation History: No [...] PATIENT TO DISCUSS PRE-OP ELIQUIS INSTRUCTIONS WITH API DEVELOPER 09/03/23. CONSULTS: The following consults have been initiated at this time: cardiology (Pt has appt with outside interior design coordinator 09/02, pt told me Dr. Fernando Noriega [...] COVID-19 Immunization Status Overdue - Covid-19 Vaccine () Never done No completion, postpone, frequency change, or communication history exists for this topic. CHIEF COMPLAINT: malpositioned IUD HPI: Keagan Alicia is a 22 year old female presenting for pre-anesthesia consultation. Pt has history of shooting pelvic pain since IUD placement in 06/2023. Imaging done and revealed that IUD is malpositioned. Above procedure recommended to manage symptoms. Procedure scheduled on 09/15/2023 at [facility] REVIEW OF SYSTEMS: General: No weight loss, malaise or fevers. Neurological: No history of TIA's, stroke, COLLECT ON DELIVERY CLERK tumor, impaired sensorium, hemiplegia, paraplegia orquadraplegia. No [...] > 1 time per night or hematuria. CABLE STRETCHER AND TESTER: See HPI. Endocrine: No history of diabetes. [...] HISTORY Procedure Laterality Date CHOLECYSTECTOMY HX 06/17/2023 [facility] TONSILLECTOMY HX FAMILY HISTORY Problem Relation [...] Prior to Admission medications as of 09/01/23 0962 Medication Sig Last Dose Taking apixaban (ELIQUIS) [...] Holter 07/2023 Recent Results (from the past 58212 hour(s)) ECHO Collection Time: 08/25/23 10:59 AM [...] DATE: 09/01/2023 TIME: 9:18 AM PAGER/CONTACT #: [facility]07-22-2024 History and physical note* Joyce Mishra PA-C - 09/01/2023 9:20 AM EDT Images from the original note were not included. [facility] Pre[facility]esthesia [facility] HISTORY AND PHYSICAL EXAMINATION SERVICE DATE: 09/01/2023 SERVICE TIME: 9:18 AM PRIMARY CARE PHYSICIAN: Rachell Amador APRN.BLOOD TESTER FOWL Assessment Patient has the following medical conditions [...] large neck Non-male patient STOP-Bang Score: 1 [id number] Score: Age: <65 Sex: female CHF history: No Hypertension history: No Stroke/TIA/thromboembolism history: Yes Vascular disease history: No Diabetes history: No [id number] Score: 3 ANESTHESIA FINDINGS: Intubation History: No [...] PATIENT TO DISCUSS PRE-OP ELIQUIS INSTRUCTIONS WITH API DEVELOPER 09/03/23. CONSULTS: The following consults have been initiated at this time: cardiology (Pt has appt with outside interior design coordinator 09/02, pt told me Dr. Fernando Noriega [...] manage symptoms. Procedure scheduled on 09/15/2023 at [facility] REVIEW OF SYSTEMS: General: No weight loss, malaise or fevers. Neurological: No history of TIA's, stroke, COLLECT ON DELIVERY CLERK tumor, impaired sensorium, hemiplegia, paraplegia orquadraplegia. No [...] > 1 time per night or hematuria. CABLE STRETCHER AND TESTER: See HPI. Endocrine: No history of diabetes. [...] HISTORY Procedure Laterality Date CHOLECYSTECTOMY HX 06/17/2023 [facility] TONSILLECTOMY HX FAMILY HISTORY Problem Relation [...] Holter 07/2023 Recent Results (from the past [id number] hour(s)) ECHO Collection Time: 08/25/23 10:59 AM [...] 9:18 AM PAGER/CONTACT #: documented in this encounterMer[facility]07-[facility]24 Telephone encounter Note * Telephone Encounter - Mary Jo Chance MD - 08/29/2023 9:18 AM EDT Surgical request ordered [facility] Work Phone: [phone]) 807-784407-19-2024 Miscellaneous Notes* Telephone Encounter - Mary Jo Chance MD - 08/29/2023 9:18 AM EDT Surgical request ordered * Telephone Encounter - Chantelle Marquis RN - 08/27/2023 12:45 PM EDT Patient notified. She would like surgery @ [place] on 09/15/23 Pre Op scheduled for 09/12/23 with DM. Yoana- do you already have a surgery sheet for her? Chantelle Marquis RN * Telephone Encounter - Tamie Steward LPN - 08/26/2023 2:36 PM EDT Left message to call office. Next available date for surgery is 09/14 at [facility] or 09/18 at [facility]. Patient will need a pre-op appointment [...] her pre op visit. documented in this encounterMercy Health St. [facility]07-17-2024 Telephone encounter Note * Telephone Encounter - Chantelle Marquis RN - 08/27/2023 12:45 PM EDT Patient notified. She would like surgery @ [place] on 09/15/23 Pre Op scheduled for 09/12/23 with DMCaitlin Lees- do you already have a surgery sheet for her? Chantelle Marquis, RN [facility]07-16-2024 Telephone encounter Note* Telephone Encounter - Tamie Steward LPN - 08/26/2023 2:36 PM EDT Left message to call office. Next available date for surgery is 09/14 at [facility] or 09/18 at [facility]. Patient will need a pre-op appointment with Dr. Barnett. [facility]07-16-2024 Telephone encounter Note* Telephone Encounter - Tamie [...] discuss details at her pre op visit. [facility]07-16-2024 Telephone encounter Note* Telephone Encounter - Brina Geller MA - 08/26/2023 9:09 AM EDT Patient is informed Brina Geller MA [facility]07-16-2024 Telephone encounter Note* Telephone Encounter - Brina Geller MA - 08/26/2023 9:09 AM EDT ----- Message from Rachell Amador APRN.CNP sent at 08/26/2023 9:08 AM EDT ----- Echo was normal. [facility]07-16-[facility]24 Miscellaneous Notes* Telephone Encounter - Brina Geller MA - 08/26/2023 9:09 AM EDT Patient is informed Brina Geller MA * Telephone Encounter - Brina Geller MA - 08/26/2023 9:09 AM EDT ----- Message from Rachell Amador APRN.BLOOD TESTER FOWL sent at 08/26/2023 9:08 AM EDT ----- Echo was normal. documented in this encounterMercy Health St. [facility]07-11-2024 History of Present illness Narrative* Ramiro Hugo [...] Smokes marijuana every other day FamHx: pGF RI in 30 Objective Current Outpatient Medications Medication [...] normal. My Interpretation of Reviewed Study(s): 14-day supervisor assembling (July 2023): Predominant rhythm sinus with average [...] including weight restrictions and she has an 7-slbdd-nael-old. Patient did state that she was able to get family members to help with childcare while she is recovering postprocedurally. Metoprolol 25mg PRN - will change it BID if increasing frequency Plan for SVT ablation # Pre-procedure Planning Procedure Type: SVT RFA - EnSite Planned Date: 10/03/23 - [facility] Anesthesia Needed: MAC Anticoagulation: Apixaban 5mg BID, [...] in 5-6 weeks post-procedure Ramiro Hugo MD [facility] Cardiac Electrophysiology [email or web address] Disclaimer: This note was dictated by speech recognition, and every effort has been made to prevent any error in trumpet player, however minor errors may be present documented in this encounterChillicothe VA Medical Center Work Phone: [phone]) 424-480907-10-2024 History of Present illness Narrative* Lisette Marquez [...] PATIENT PRESENTS WITH AN IMPLANTABLE OR ATTACHED BRIM POUNCER MACHINE OPERATOR: No RADIOLOGY DEPARTMENT: General X-ray: Exam(s) Completed: Pelvis X-Ray: Pelvis General AP and Pelvis inlet/outlet PERIPHERAL IV DATA: Not applicable SIGNED BY: RT Eric(R) August 20, 2023 12:53 PM documented in this encounterMercy Health St. [facility]07-10-2024 History of Present illness Narrative* Mary Jo [...] Births2 Comment: No D&Cs for missed abs Manager Part History LMP: 07/14/2023 (Approximate), IUD Age at Menarche: Age at First : Age at Menopause: Manager Part History Comments: Sexual Activity: Yes; Male Contraception: No contraception data on record PAST MEDICAL HISTORY Diagnosis Date Anemia Chronic tonsillitis Depression 10/08/2016 Gall stone 07/2022 cholecystectomy after delivery Postoperative pulmonary embolism (HCC) 06/2023 Psychiatric disorder depression, anxiety and PTSD PAST SURGICAL HISTORY Procedure Laterality Date CHOLECYSTECTOMY HX 06/17/2023 [facility] TONSILLECTOMY HX FAMILY HISTORY Problem Relation [...] external genitalia normal, normal Bartholin's glands, urethra, [place]'s glands, no vulvar lesions, no cervical lesions, [...] which included preparing to see the patient, khxs-dh-bfmh patient care, completing clinical documentation, obtaining and/or reviewing separately obtained history, performing a medically appropriate examination, counseling and educating the pat ient/family/caregiver, and ordering medications, tests, or procedures. Mary Jo Gee MD documented in this encounterMercy Health St. [facility]07-09-2024 History of Present illness Narrative* Herve Rea [...] OBGYN Call Schedule: QGenda documented in this encounterMercy Health St. [facility]07-09-2024 History of Present illness Narrative* Sandra Cole APRN.CNP - 08/19/2023 3:37 PM EDT Keagan presents [...] daily Sandra Cole APRN.CNP documented in this encounterMercy Health St. [facility]07-09-2024 Telephone encounter Note * Telephone Encounter - Ana Laura Guillen MA - 08/19/2023 8:27 AM EDT pharmacy electronically requesting refills as follows: Last seen 07/31/23 . Last refill 07/31/23 . Requested Prescriptions Pending Prescriptions Disp Refills metoprolol tartrate, short acting, (LOPRESSOR) 25 mg tablet [Pharmacy Med Name: METOPROLOL [id number] MG TAB] 60 tablet 0 Sig: take 1 tablet by mouth twice a day as needed Please review and advise. Ana Laura Guillen MA [facility]07-09-2024 Miscellaneous Notes* Telephone Encounter - Ana Laura Guillen MA - 08/19/2023 8:27 AM EDT pharmacy electronically requesting refills as follows: Last seen 07/31/23 . Last refill 07/31/23 . Requested Prescriptions Pending Prescriptions Disp Refills metoprolol tartrate, short acting, (LOPRESSOR) 25 mg tablet [Pharmacy Med Name: METOPROLOL [id number] MG TAB] 60 tablet 0 Sig: take 1 tablet by mouth twice a day as needed Please review and advise. Ana Laura Guillen MA documented in this encounterMercy [facility] St. [facility]07-09-2024 Telephone encounter Note * Telephone Encounter - Sandra Cole APRN.CNP - 08/19/2023 6:59 AM EDT +yeast, Diflucan sent. Sandra Cole APRN.CNP [facility]07-09-2024 Miscellaneous Notes* Telephone Encounter - Sandra Cole APRN.CNP - 08/19/2023 6:59 AM EDT +yeast, Diflucan sent. Sandra Cole APRN.CNP documented in this encounterMercy Health St. [facility]07-08-2024 History of Present illness Narrative* Sandra Cole APRN.CNP - 08/18/2023 8:19 AM EDT Manager Speech offered: Patient declines. Keagan Alicia is a [...] Births2 Comment: No D&Cs for missed abs Manager Part History LMP: 07/14/2023 (Approximate), IUD Age at Menarche: Age at First : Age at Menopause: Manager Part History Comments: Sexual Activity: Yes; Male Contraception: No contraception data on record PAST MEDICAL HISTORY Diagnosis Date Anemia Chronic tonsillitis Depression 10/08/2016 Gall stone 07/2022 cholecystectomy after delivery Postoperative pulmonary embolism (HCC) 06/2023 Psychiatric disorder depression, anxiety and PTSD PAST SURGICAL HISTORY Procedure Laterality Date CHOLECYSTECTOMY HX 06/17/2023 [facility] TONSILLECTOMY HX FAMILY HISTORY Problem Relation [...] external genitalia normal, normal Bartholin's glands, urethra, [place]'s glands, no vulvar lesions, no cervical lesions, [...] Level: 4 - Moderate documented in this encounterMercy Health St. [facility]06-27-2024 Telephone encounter Note * Telephone Encounter - Corinne Caicedo - 08/07/2023 12:23 PM EDT The following medication(s) is being requested: LAST APPT - 07/14/23 NEXT APPT - N/A Requested Prescriptions Pending Prescriptions Disp Refills mirtazapine (REMERON) 15 mg tablet [Pharmacy Med Name: MIRTAZAPINE 15 MG TABLET] 90 tablet 1 Sig: TAKE 1 TABLET BY MOUTH EVERYDAY AT BEDTIME Please process accordingly Corinne Caicedo [facility]06-27-2024 Miscellaneous Notes* Telephone Encounter - Corinne Caicedo [...] process accordingly Corinne Caicedo documented in this encounterMercy Health St. Charles [facility]06-20-2024 Instructions* Patient Instructions* Rachell Amador APRN.CNP - 07/31/2023 3:35 PM EDT Cardiology [phone] Dr. Jonathan Dutta Cardiovascular Medicine [facility] Medical Office Building [address] [place] [address] Appointment: [phone] Desk: [phone] Cardiology: Dr. Carl Peña MD [address] [place] [id number] Cardiology: DO Grant Galeana documented in this encounterMercy Health St. Charles [facility]06-20-2024 History of Present illness Narrative* Rachell Amador [...] three days later. She did see a interior design coordinator with in [place] and the Eliquis will be continued for a total of 3 months. A 14 day Holter monitor was also ordered and she completed this on 07/23/23 but hasn't heard anything about the results yet although she can see them on [employer]. She is here to discuss the results. [...] sudden cardiac but notes a history of RI in a fewof her family members. She [...] HISTORY Procedure Laterality Date CHOLECYSTECTOMY HX 06/17/2023 [facility] TONSILLECTOMY HX Social History Tobacco Use [...] does not want to return to the interior design coordinator that shesaw previously. She was advised to [...] patient. Rachell Amador APRN.CNP documented in this encounterMercy Health St. [facility]06-13-2024 History of Present illness Narrative* Gino Valero [...] intercourse Gino Valero APRN.CNM documented in this encounterMercy Health St. [facility]06-04-2024 History of Present illness Narrative* Chantelle Low PA-C - 07/15/2023 9:38 AM EDT Images from the original note were not included. [facility] SMOKING CESSATION PROGRAM CONSULT NOTE I will communicate the consult note back to the requesting health care provider by way of the shared medical record for internal providers or letter via the [employer] for external providers. July 15, 2023 CONSULTING PHYSICIAN/REFERRAL: Mitra Reed [address] [facility] [address] REASON FOR CONSULT/REFERRAL: Tobacco Cessation Treatment HPI: [...] HISTORY Procedure Laterality Date CHOLECYSTECTOMY HX 06/17/2023 [facility] TONSILLECTOMY HX MEDICATIONS: lamoTRIgine (LAMICTAL) 25 [...] PA-C Pulmonary & Critical Care Medicine Respiratory [place] July 15, 2023 9:38 AM PAYTON Reed [address] [place] [id number] and Rachell Amador APRN.BLOOD TESTER FOWL via EPIC documented in this encounterMercy Health St. [facility]06-03-2024 Note* Addendum Note - Ditpi Freed DO - 07/14/2023 3:30 PM EDTAddended by: DIPTI FREED on: 07/14/2023 03:30 PM Modules accepted: Orders [facility]06-03-2024 Miscellaneous Notes* Addendum Note - Dipti Freed DO - 07/14/2023 3:30 PM EDTAddended by: DIPTI FREED on: 07/14/2023 03:30 PM Modules accepted: Orders documented in this encounterMercy Health St. [facility]06-03-2024 NoteHNO ID: [id number] Author: DIPTI FREED DO Service: ? Author [...] visit. Either the patient or their legal union representative has been informed of the risks [...] it for total of 14 days for interior design coordinator. She has to see a convention worker as she developed a PE. She stopped [...] HISTORY Procedure Laterality Date CHOLECYSTECTOMY HX 06/17/2023 [facility] TONSILLECTOMY HX Current Outpatient Medications Medication [...] use disorder depression TREATMENT PLAN: 1. D/c'd Gordy ring/gayla (more content not included)...[facility] 07-14-2023 History of Present illness Narrative* Dipti Freed, - 07/14/2023 2:19 PM EDT FOLLOW UP [...] visit. Either the patient or their legal union representative has been informed of the risks [...] it for total of 14 days for interior design coordinator. She has to see a convention worker as she developed a PE. She stopped [...] HISTORY Procedure Laterality Date CHOLECYSTECTOMY HX 06/17/2023 [facility] TONSILLECTOMY HX Current Outpatient Medications Medication [...] the date of the service which included iasi-yt-somf patient care, completing clinical documentation, obtaining and/or reviewing separately obtained history, and performing a medically appropriate examination. ADD ON PSYCHOTHERAPY CODE : No SIGNATURE: Dipti Freed DO PATIENT NAME: Keagan Alicia DATE: July 14, 2023 TIME: 2:19 PM documented in this encounterMercy Health St. [facility]05-28-2024 History of Present illness Narrative* Alla Llanes [...] to work. 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 Home Medications: Prior to Admission medications Medication [...] Alla Llanes MD 07/08/2023 documented in this encounterChillicothe [facility] Center Work Phone: 1([phone]) [phone] Telephone encounter Note* Telephone Encounter - Corinne [...] EVERY DAY Please process accordingly Corinne Caicedo [facility]05-24-2024 Miscellaneous Notes* Telephone Encounter - Corinne Caicedo [...] process accordingly Corinne Caicedo documented in this encounterMercy Health St. Charles [facility]05-22-2024 Instructions* Patient Instructions* Mitra Reed, NOA.BLOOD TESTER FOWL - 07/02/2023 2:07 PM EDT SMOKING CESSATION [...] desirable brand of cigarettes. ___ Discard your public improvement inspector. Use matches. Carry your cigarettes in a [...] why you quit. Also remember that a [employer] spends billions of dollars each year trying [...] of all your medications. documented in this encounterMercy Health St. [facility]05-22-2024 History of Present illness Narrative* Mitra Reed APRN.CNP - 07/02/2023 1:44 PM EDT Subjective Keagan Alicia is a 22 year old female here today for ER follow-up. I reviewed past medical, surgical, social, and family histories today and updated chart. Allergies, chronic medications, and supplements were also reviewed. HPI Gallbladder removed on 06/17/[address] Llanes @ [facility] Went home same day Went to [place] ER on 06/18/23 because of vomiting, could not hold down any fluids Returned to [place] ER on 06/19/23 d/t intractable vomiting. She was admitted overnight. HIDA scan completed and was negative for biliary leak. CT A/P done showing diffuse infectious colitis. She was treated with IV cipro, IV metronidazole, IV famotidine. She was discharged home on 06/20/23 Patient states she was called the next morning telling her she has a blood clot in her lung. She went back to [place] ER on 06/21/23 to get confirmation lung scan. She was started on Eliquis. She went to [place] [facility] on 06/22/23 for ongoing pain, nausea, vomiting, chills, shakiness. Labs completed showing mildly low potassium and glucose. UA negative for infection. CT A/P performed - normal. She was treated with IV fluids and zofran. Discharged home. Went to [place] ER on 06/24/23 for numbness in her feet, heavy vaginal bleeding. Labs and CT A/P performed - normal Patient saw her CABLE STRETCHER AND TESTER Dr Ortez on 06/26/23 - negative GC, trichomonas. Mirena IUD was placed. Patient saw soaping machine back tender Dr. Miki Jaramillo [facility] earlier today. She is scheduled for US BLE and heart monitor. Planned to complete Eliquis x 3 months, then will have clotting labs completed. No swelling or pain in the legs Gets shaky/dizzy Feet and hands go numb - told this was normal due to blood clot Dizzy is not new - HR goes up to [address] Has been going on for years Banker Mason - Dr Fernando Noriega She does have [...] HISTORY Procedure Laterality Date CHOLECYSTECTOMY HX 06/17/2023 [facility] TONSILLECTOMY HX ALLERGIES Latex MEDICATIONS apixaban [...] She is not toxic-appearing. HENT: Mouth/Throat: Lips: [place]. Mouth: Mucous membranes are moist. Pharynx: Oropharynx [...] copied and pasted from Records found in [facility]: HEPATOBILIARY SCAN (HIDA) The patient received [...] pelvis from 06/19/2023 COMPARISON: None.. ACCESSION NUMBER(S): [id number] ORDERING CLINICIAN: SATURNINO VELÁZQUEZ TECHNIQUE: CT angiography [...] Rosa Chavarria 06/21/2023 9:34 AM Dictation workstation: [id number] Latest Ref Rng 06/22/2023 WBC 3.70 - [...] Abs Lymph 1.00 - 4.00 k/uL 2.05 Slope% % 5.8 Abs Slope <0.87 k/uL 0.31 Eosin% % 3.8 Abs [...] (POLACRILEX) 2 MG BUCCAL LOZENGE Mitra Reed APRN.ULISSES documented in this encounterMercy Health St. [facility]05-22-2024 History of Present illness Narrative* Miki Jaramillo MD - 07/02/2023 8:00 AM EDT Patient ID:Keagan Alicia is a 22 y.o. year old female patient with a history of pulmonary embolus Referring Physician: Saturnino Velázquez, [address] Department [place] [address] Primary Care Provider: Rachell Amador APRN-ULISSES Chief [...] follow-up. 06/24/2023. Seen by Megan Berg physician business development assistant and emergency medicine. She presented with [...] is encouraged to see primary care and BOND TRADER. 06/25/2023. Seen by Dr. Fernando Noriega because [...] We discussed the recommendations of Dr. Fernando Noriega'jama with which I agree. When she is [...] personally reviewed the OARRS report for Keagan Alicia. I have considered the risks of abuse, [...] nursing note reviewed. Exam conducted with a senior maintenance mechanic present. Constitutional: General: She is not in [...] pm INDICATION: Signs/Symptoms:pain. COMPARISON: 06/19/2023 ACCESSION NUMBER(S): [id number] ORDERING CLINICIAN:MEGAN BERG TECHNIQUE: Axial CT images [...] Christa Gagnon 06/24/2023 9:10 PM Dictation workstation: [id number] ECG 12 lead Result Date: 06/23/2023 Normal sinus rhythm Rightward axis Borderline ECG When compared with ECG of 21-JUN-2023 07:53, (unconfirmed) Vent. rate has decreased BY 38 BPM QRS voltage has increased Nonspecific T wave abnormality now evident in Inferior leads CT abdomen pelvis w IV contrast Result Date: 06/22/2023 * * *Final Report* * * DATE OF EXAM: Jun 22 2023 2:12PM [facility] 0530 - CT ABD/PEL W IVCON / [...] of an acute intra-abdominal or pelvic process Actuarial Intern: [facility] Transcribe Date/Time: Jun 22 2023 2:23P Dictated [...] pelvis from 06/19/2023 COMPARISON: None.. ACCESSION NUMBER(S): [id number] ORDERING CLINICIAN: SATURNINO VELÁZQUEZ TECHNIQUE: CT angiography [...] Rosa Chavarria 06/21/2023 9:34 AM Dictation workstation: [id number] CT abdomen pelvis w IV contrast Addendum [...] AM -------- ORIGINAL REPORT -------- Dictation workstation: [id number] Result Date: 06/21/2023 Interpreted By: Young Foss, STUDY: CT ABDOMEN PELVIS W IV CONTRAST; 06/19/2023 7:55 pm INDICATION: Signs/Symptoms:recent cholecystectomy, nausea, vomiting, increased pain. Postoperative day to COMPARISON: None. ACCESSION NUMBER(S): [id number] ORDERING CLINICIAN: EUGENE CARCAMO TECHNIQUE: Contiguous axial [...] thin peritoneal enhancement in the region of [id number]. MUSCULOSKELETAL: No acute osseous abnormality. No suspicious [...] Young Foss 06/19/2023 8:23 PM Dictation workstation: [id number] NM hepatobiliary Result Date: 06/20/2023 Interpreted By: Jonathan Shannon, and Noemy Melara STUDY: NM HEPATOBILIARY; 06/20/2023 7:34 am INDICATION: Signs/Symptoms:rule out biliary leak. COMPARISON: None. ACCESSION NUMBER(S): [id number] ORDERING CLINICIAN: ALLA LLANES TECHNIQUE: DIVISION OF [...] as stated. This study was interpreted at [facility], [place], [place]. MACRO: None Signed by: Jonathan Shannon 06/20/2023 10:09 AM Dictation workstation: [id number] Pathology Recent subsegmental pulmonary embolus after cholecystectomy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 right. For those who are more comfortable with a virtual platform, PlayBuzz offers online support group options several days of the week. To register for an online group or to find out more about POEM, website at: https://mhaohio.org/get-help/ljfhzbjb-szkjsf-phiikt/poem-services/ offer a confidential helpline: private Facebook group is called [facility] Here are the groups they offer: Traumatic childbirth resources: Http://pattch.org/ https://www.Ubiquiti NetworkstemitopeNarzana Technologies/ documented in this encounterMer[facility]03-13-2024 History of Present illness Narrative* Gino Valero [...] currently sexually active and is formula feeding . OB History T1 L2 SAB3 IAB0 Ectopic0 [...] control Gino Valero APRN.CNM documented in this encounterMercy Health St. [facility]01-29-2024 Miscellaneous Notes* Telephone Encounter - Antionette Ward [...] you would like to order hCG. Chantelle Marquis RN documented in this encounterMercy Health St. [facility]12-21-2023 History of Present illness Narrative* Prabhu Ortez MD - 01/30/2023 12:12 PM EST VISIT Keagan Alicia is a 22 year old year old here for visit. Delivery Summary: ROS/ Recovery: Feeding: Bottle feeding problems: None Menses since delivery: spotting Menstrual pattern prior to : Regular periods [place] since delivery: Not resumed Depression: denies symptoms [...] external genitalia normal, normal Bartholin's glands, urethra, [place]'s glands, no vulvar lesions, no cervical lesions, [...] injections Prabhu Ortez MD documented in this encounterMercy Health St. [facility]11-06-2023 History of Present illness Narrative* Iveth Kohli RN - 12/16/2022 8:44 AM EST Patient delivered via by Evangelina on 12/15/22 at [facility]. See OB history. Iveth Kohli RN documented in this encounter[facility]11[facility] History of Present illness Narrative* Joyce Huston MA - 12/13/2022 12:35 PM EDT POPULATION HEALTH NAVIGATION OUTREACH Action/FYI 1st attempt: Called and left message to call back to discuss manager desktop. message sent. Patient Identified by Name and : NO Outreach Outcome/Action Unable to reach patient: Left message MyChart message sent Did you use a PCP flex slot to schedule this appointment? N/A Reason for Outreach [place] Payer: [facility] [facility] [place] [place] [facility] / Product Type: Medicaid / Care Gap Reviewed:: N/A Reminder: Reminder note to check Health Maintenance for items below Health Maintenance items due: Covid-19 Vaccine(1) Never done Meningococcal B Vaccine: Consider Based On Risk(1 of 2 - Patient Seeks Protection) Never done Influenza Vaccine(1) due on 10/11/2022 Navigation Signature: Joyce Briones MA December 13, 2022 12:35 PM documented in this encounterMer[facility]10-24-2023 Miscellaneous Notes* Quick Notes - Prabhu Ortez [...] reviewed. Prabhu Ortez MD documented in this encounterMercy Health St. [facility]10-24-2023 Instructions* Patient Instructions* Masters Kayla Krishnan - 12/03/2022 2:21 PM EDT SEQUENTIAL SCREENINGS [facility] offers sequential screenings for women who are [...] testing. It will require an appointment withour tv technician. This is not an ultrasound performed [...] the above symptoms, contact our office at [phone] and ask to speak with anurse. After hours, you can call doctors registry at [phone] OR call [facility] at [phone] ask to have the doctor front counter clerk paged. If you consider this an emergency, dial or go to your nearest emergency department. NEED HELP? Are you dealing with a violent or abusive relationship? Are you a victim of rape or sexual assult? Call [facility] ([place]) 24 hour Crisis Hotline: 264.849.8297 or 021-804-5975. MANUAL Your Guide to a Healthy manual is now on-line. Visit [email or web address] to download your free copy documented in this encounterMer[facility]. [facility]10-16-2023 Miscellaneous Notes* Quick Notes - Jaquelin Hi [...] week Jaquelin Hi APRN.CNM documented in this [facility]10-16-2023 Miscellaneous Notes* Telephone Encounter - Josefa Ricks RN - 11/25/2022 11:29 AM EDT 2nd risk assessment form submitted 11/25/22 Josefa Ricks RN documented in this encounterMercy [facility]. [facility]10-10-2023 Miscellaneous Notes* Quick Notes - Prabhu Ortez [...] reviewed. Prabhu Ortez MD documented in this encounterMer[facility]. [facility]10-10-2023 Instructions* Patient Instructions* Masters Eulogio Kayla - 11/19/2022 3:41 PM EDT SEQUENTIAL SCREENINGS [facility] offers sequential screenings for women who are [...] testing. It will require an appointment withour tv technician. This is not an ultrasound performed [...] the above symptoms, contact our office at [phone] and ask to speak with anurse. After hours, you can call doctors registry at [phone] OR call [facility] at [phone] ask to have the doctor front counter clerk paged. If you consider this an emergency, dial 9--6 or go to your nearest emergency department. NEED HELP? Are you dealing with a violent or abusive relationship? Are you a victim of rape or sexual assult? Call [facility] ([place]) 24 hour Crisis Hotline: 406.645.6944 or 018-864-7096. MANUAL Your Guide to a Healthy manual is now on-line. Visit [email or web address] to download your free copy documented in this encounterMercy [facility]10-09-2023 Instructions* Patient Instructions* Steven Cruz Cma - 11/18/2022 1:12 PM EDT SEQUENTIAL SCREENINGS [facility] offers sequential screenings for women who are [...] testing. It will require an appointment withour tv technician. This is not an ultrasound performed [...] the above symptoms, contact our office at [phone] and ask to speak with anurse. After hours, you can call doctors registry at [phone] OR call [facility] at [phone] ask to have the doctor front counter clerk paged. If you consider this an emergency, dial 7-2-2 or go to your nearest emergency department. NEED HELP? Are you dealing with a violent or abusive relationship? Are you a victim of rape or sexual assult? Call [facility] ([place]) 24 hour Crisis Hotline: 287.496.9066 or 640-714-8697. MANUAL Your Guide to a Healthy manual is now on-line. Visit [email or web address]/HealthyPregnancyGuide to download your free copy documented in this encounterCleveland [id number] Miscellaneous Notes* Telephone Encounter - Annmarie Rene RN - 10/24/2022 9:50 AM EDT 1st risk assessment form submitted 10/24/22 Annmarie Rene RN documented in this encounterMercy Health St. [facility]08-31-2023 History of Present illness Narrative* Chantelle Marquis RN - 10/10/2022 11:34 AM EDT Received outside medical records from [place] [facility]. Updated patient's chart. Records placed in AGmailbox for upcoming NOB. Chantelle Marquis RN documented in this encounterMercy Health St. [facility]07-20-2023 Discharge summary Author Jimmy Anna [facility] August 29, 2022 5:52pm Note Date/Time August 29, 2022 3:46 pm [facility] Medical Records Department [address] [place] [address] Emergency Department Summary 08/29/22 MR#: [id number] Acct: [id number] Name: KEAGAN ALICIA Rep #:[id number] : 2000 21 From: Jimmy Anna MD [...] hersymptoms are improving. No fevers or chills. [facility] Medical History Depression Home Medications NK [...] 78.5 H Lymph % (Auto) 13.8 L Slope % (Auto) 6.4 Eos % (Auto) 0.8 [...] Sl. Cloudy Urine pH 6.0 Ur Specific [place] 1.020 Urine Protein 15 H Urine Glucose [...] your Primary Care Provider. Call Doctors Registry ([phone]) or report to the closest Emergency Room. Call 911 if necessary. 08/29/22 1752 <Electronically signed by Jimmy Anna MD> Cosigner Signature (if applicable): CC: No Primary Care Physician ~ Signed [facility] Work Phone: 1(326) 848-542807-08-2023 Discharge summary Author Kristofer Low [facility] August 17, 2022 1:22pm Note Date/Time August 17, 2022 10:43 am [facility] Medical Records Department [address] [place] [address] Emergency Department Summary 08/17/22 MR#: [id number] Acct: [id number] Name: KEAGAN ALICIA Rep #:[id number] : 2000 21 From: Kristofer Low MD [...] [facility] [...] went to bed she ate a hamburger. [facility] Medical History Depression Home Medications NK [...] has an appointment with a surgeon in [place] as a result of her prior ultrasound [...] 76.2 H Lymph % (Auto) 15.6 L Slope % (Auto) 7.1 Eos % (Auto) 0.5 [...] Signed: Leila Thompson MD at 11:53 EDT [place] Location ID and State: [facility] / [place] Tel , Service support , Discharge Plan Triage Chief Complaint: Abd Pain ED Provider: Kristofer Low Dx/Rx/DC Orders Clinical Impression: Second trimester , Cholelithiasis, Biliary colic Instructions: ED Gallstones with Biliary Colic Prescriptions: No Action NK Primary Care Provider: Care Physician,No [facility]-Staff[facility] - Doctor,Your [Non-Staff] - Keep Mireya appointment (Surgeon that you have an appt with) Activity Restrictions/Additional Instructions: Avoid fatty foods including animal meats as much as you are able. What to do if you have Problems For any increased pain, shortness of breath, bleeding, nausea or vomiting, chestpain, or any unexpected problems, contact your Primary Care Provider. Call Doctors Registry ([phone]) or report to the closest Emergency Room. Call 911 if necessary. 08/17/22 1322 <Electronically signed by Kristofer Low MD> Cosigner Signature (if applicable): CC: No Primary Care Physician ~ Signed [facility] Work Phone: 1(599) 675-709310-03-2022 Instructions* Patient Instructions* Leeann Ascencio APRN.CNP - 11/12/2021 7:26 PM EDT Will send urine culture and call with results, also available on my chart Will send vaginal cultures will call and treat based on results HIV screening ordered - present to lab M-F [id number], Friday [id number] Will call with results. Follow up with [facility] as needed documented in this encounterMercy Health St. [facility]10-03-2022 History of Present illness Narrative* Leeann Ascencio APRN.ULISSES - 11/12/2021 7:14 PM EDT Subjective The history is provided by the patient. No automotive parts interpreter was used. HPI Keagan Alicia is [...] have confirmed and edited as necessary, the [facility] Review of Systems Constitutional: Negative [...] indetail warranting prompt ER evaluation. Leeann Ascencio APRN.ULISSES documented in this encounterMercy Health [facility]07-05-2022 History of Present illness Narrative* Steven Rojas APRN.CNP - 08/14/2021 12:02 PM EDT Subjective HPI Nontoxic-appearing female presents urgent care chief complaint STD testing. Patient states found out last week that her ex fijaimee tested positive for HIV. States has been with her ex fijaimee for the past year. They have had [...] of care. This note was generated using vip.com software. It may contain errors in wording, punctuation, or spelling. Steven Rojas APRN.ULISSES documented in this encounterMercy Health St. [facility]05-22-2018 History of Past illness Narrative* Problem Noted [...] of this encounter (statuses as of 01/31/2023) [facility] History of Past illness Narrative* Problem Noted [...] of this encounter (statuses as of 03/17/2023) [facility] History of Past illness Narrative* Problem Noted [...] of this encounter (statuses as of 04/24/2023) [facility] History of Past illness Narrative* Problem Noted [...] of this encounter (statuses as of 05/13/2023) [facility] HospitalEvaluation noteNo assessment information availableWTriHealth [facility] Work Phone: Evaluation note* Diagnosis Screening for STD (sexually transmitted disease)- Primary Screening examination for venereal disease documented in this encounter [facility] note* Diagnosis Burning with urination- Primary Dysuria Exposure to HIV Contact with or exposure to other viral diseases Acute vaginitis Vaginitis and vulvovaginitis, unspecified documented in this encounter [facility] note* Diagnosis care, subsequent in third trimester- Primary 34 weeks gestation of state, incidental documented [facility]* Diagnosis with care elsewhere in third trimester- Primary 34 weeks gestation of state, incidental documented [facility] this [facility]* Diagnosis Encounter for supervision of normal first in third trimester- Primary Supervision of normal first 36 weeks gestation of state, incidental documented in this encounter [facility] note* Diagnosis Routine follow-up- Primary care and examination Routine follow-up documented in this encounter [facility]* Diagnosis Spotting- Primary Other specified noninflammatory disorder of vagina Breakthrough bleeding on depo provera Metrorrhagia Episode of recurrent major depressive disorder, unspecified depression episode severity (HCC) Anxiety Anxiety state, unspecified PTSD (post-traumatic stress disorder) Posttraumatic stress disorder Post depression Mental disorders of mother, [facility]* Diagnosis Panic disorder without agoraphobia- Primary Episode of recurrent major depressive disorder, unspecified depression episode severity (HCC) Anxiety Anxiety state, unspecified PTSD (post-traumatic stress disorder) Posttraumatic stress disorder Post depression Mental disorders of mother, documented [facility]* Diagnosis Symptomatic cholelithiasis- Primary Symptomatic cholelithiasis- Primary documented in this encounter [facility] Work Phone: Evaluation note* Diagnosis Pain in the coccyx- Primary Other disorder of coccyx Tailbone injury, initial encounter Depression, unspecified depression type Generalized anxiety disorder documented in this encounter [facility]* Diagnosis Post depression- Primary Mental disorders of mother, Panic disorder without agoraphobia PTSD (post-traumatic stress disorder) Posttraumatic stress disorder [facility]* Diagnosis Symptomatic cholelithiasis- Primary Post-operative pain Other acute postoperative pain Post-operative pain Other acute postoperative pain Anxiety Anxiety state, unspecified PTSD (post-traumatic stress disorder) Posttraumatic stress disorder Depression Depressive disorder, not elsewhere classified documented in this encounter [facility] Work Phone: Evaluation note* Diagnosis Postoperative pain- Primary Other acute postoperative pain documented in this encounter [facility] Work Phone: Evaluation note* Diagnosis Acute post-operative pain- Primary Acute post-operative pain Status post cholecystectomy Other acquired absence of organ Vomiting and diarrhea documented in this encounter [facility] Work Phone: Evaluation note* Diagnosis Single subsegmental pulmonary embolism without acute cor pulmonale (Multi)- Primary documented in this encounter [facility] Work Phone: Evaluation note* Diagnosis Dysfunctional uterine bleeding- Primary Other disorder of menstruation and other abnormal bleeding from female genital tract Post-op pain Other acute postoperative pain documented in this encounter [facility] Work Phone: Evaluation note* Diagnosis Palpitations- Primary Single subsegmental pulmonary embolism without acute cor pulmonale (Multi) Smoking addiction documented in this encounter [facility] Work Phone: Evaluation note* Diagnosis Abnormal uterine bleeding (AUB)- Primary Encounter for IUD insertion Encounter for insertion of intrauterine contraceptive device documented in this encounter [facility]* Diagnosis Nausea and vomiting, unspecified vomiting type- Primary S/P cholecystectomy Other acquired absence of organ Single subsegmental pulmonary embolism without acute cor pulmonale (HCC) Vapes nicotine containing substance documented in this encounter [facility]* Diagnosis Single subsegmental pulmonary embolism without acute cor pulmonale (Multi) documented in this encounter [facility] Work Phone: Evaluation note* Diagnosis Postoperative visit- Primary documented in this encounter [facility] Work Phone: Evaluation note* Diagnosis Single subsegmental pulmonary embolism without acute cor pulmonale (Multi) Other pulmonary embolism without acute cor pulmonale (Multi) documented in this encounter [facility] Work Phone: Evaluation note* Diagnosis Palpitations documented in this encounter [facility] Work Phone: Evaluation note* Diagnosis Panic disorder without agoraphobia- Primary anxiety Mental disorders of mother, documented in this encounter [facility]* Diagnosis Vaping nicotine dependence, non-tobacco product- Primary documented [facility]* Diagnosis Surveillance of previously prescribed intrauterine contraceptive device- Primary documented in this encounter [facility]* Diagnosis Paroxysmal SVT (supraventricular tachycardia) (HCC)- Primary Paroxysmal supraventricular tachycardia Palpitations Single subsegmental pulmonary embolism without acute cor pulmonale (HCC) On continuous oral anticoagulation Long-term (current) use of anticoagulants Engages in vaping documented in this encounter [facility]* Diagnosis Panic disorder without agoraphobia documented in this encounter [facility]* Diagnosis Pelvic pain in female- Primary Unspecified symptom associated with female genital organs Intrauterine contraceptive device threads lost, initial encounter Irregular bleeding Irregular menstrual cycle documented in this encounter [facility]* Diagnosis Paroxysmal SVT (supraventricular tachycardia) (HCC) Paroxysmal supraventricular tachycardia Palpitations documented in this encounter [facility]* Diagnosis Encounter for IUD removal- Primary Encounter for removal of intrauterine contraceptive device Malpositioned intrauterine device (IUD), initial encounter documented in this encounter [facility]* Diagnosis Pelvic pain in female Unspecified symptom associated with female genital organs Intrauterine contraceptive device threads lost, initial encounter Irregular bleeding Irregular menstrual cycle documented in this encounter [facility]* Diagnosis Pelvic pain in female- Primary Unspecified symptom associated with female genital organs Malpositioned IUD, sequela documented in this encounter [facility]* Diagnosis Malpositioned IUD, sequela Pelvic pain in female Unspecified symptom associated with female genital organs documented in this encounter [facility]* Diagnosis Paroxysmal SVT (supraventricular tachycardia) (HCC) Paroxysmal supraventricular tachycardia Palpitations documented in this encounter [facility]* Diagnosis Malpositioned intrauterine device (IUD), sequela- Primary Malpositioned intrauterine device (IUD), sequela documented [facility] this [facility]* Diagnosis Preoperative examination- Primary Preoperative examination, [...] is scheduled for ablation 10/03/23. RRR on examto. * Assessment & Plan Note - Joyce [...] * Assessment & Plan Note - Joyce Msihra PA-C - 09/01/2023 9:53 AM EDTAssociated Problem(s): [...] pre-op instructions for Eliquis with Dr. Fernando Noirega on 09/03/23. Pt verbalized understanding. documented [facility]* Diagnosis Malpositioned intrauterine device (IUD), [...] period Premenopausal menorrhagia [facility]* Diagnosis Post-operative state- Primary Other [...] status Functional diarrhea [facility]* Diagnosis Preoperative examination- Primary Preoperative examination, [...] Other postprocedural status documented [facility] encounter [facility]* Diagnosis Preoperative examination- Primary Preoperative examination, unspecified Single subsegmental pulmonary embolism without acute cor pulmonale (HCC) Vapes nicotine containing substance Marijuana use Cannabis abuse, unspecified Generalized anxiety disorder Depression, unspecified depression type Paroxysmal SVT (supraventricular tachycardia) (HCC) Paroxysmal supraventricular tachycardia Vaginal discharge- Primary Leukorrhea, not specified as infective documented in this encounter [facility] note* Diagnosis Single subsegmental pulmonary embolism without acute cor pulmonale- Primary SVT (supraventricular tachycardia) ([facility]-HCC) Other specified cardiac dysrhythmias documented in this encounter [facility] Work Phone: Evaluation note* Diagnosis Preoperative examination- [...] this encounter [facility] note* Diagnosis Pulmonary embolism (Multi)- Primary Other pulmonary embolism and infarction SVT (supraventricular tachycardia) (CMS-HCC) Other specified cardiac dysrhythmias Palpitations SVT (supraventricular tachycardia) (CMS-HCC)- Primary Other specified cardiac dysrhythmias SVT (supraventricular tachycardia) (CMS-HCC) Other specified cardiac dysrhythmias documented in this encounter [facility] Work Phone: Evaluation note* Diagnosis SVT (supraventricular tachycardia) (CMS-HCC)- Primary Other specified cardiac dysrhythmias SVT (supraventricular tachycardia) ([facility]-HCC) Other specified cardiac dysrhythmias Palpitations SVT (supraventricular tachycardia) ([facility]-HCC) Other specified cardiac dysrhythmias documented in this encounter [facility] Work Phone: Evaluation note* Diagnosis SVT (supraventricular tachycardia) ([facility])- Primary Other specified cardiac dysrhythmias Atrial fibrillation, unspecified type (Multi) Palpitations documented in this encounter [facility] Work Phone: Evaluation note* Diagnosis Urinary tract infection in mother during first trimester of ([facility])- Primary Hypoglycemia Hypoglycemia, unspecified Nausea vomiting and diarrhea documented in this encounter [facility] Work Phone: Evaluation note* Diagnosis Preoperative examination- [...] History of depression documented in this encounter [facility] note* Diagnosis Preoperative examination- Primary Preoperative examination, [...] care documented in this encounter [facility]* Diagnosis Preoperative examination- Primary Preoperative examination, unspecified Single subsegmental pulmonary embolism without acute cor pulmonale (HCC) Vapes nicotine containing substance Marijuana use Cannabis abuse, unspecified Generalized anxiety disorder Depression, unspecified depression type Paroxysmal SVT (supraventricular tachycardia) (HCC) Paroxysmal supraventricular tachycardia Encounter for screening for malformation using ultrasound- Primary 13 weeks gestation of state, incidental [facility]* Diagnosis Preoperative examination- Primary Preoperative examination, [...] this encounter [facility] note* Diagnosis Preoperative examination- Primary Preoperative examination, [...] mother, antepartum condition documented [facility] this encounter [facility]* Diagnosis Preoperative examination- Primary Preoperative examination, unspecified Single subsegmental pulmonary embolism without acute cor pulmonale (HCC) Vapes nicotine containing substance Marijuana use Cannabis abuse, unspecified Generalized anxiety disorder Depression, unspecified depression type Paroxysmal SVT (supraventricular tachycardia) (HCC) Paroxysmal supraventricular tachycardia Encounter for anatomic survey ([facility])- Primary Encounter for anatomic survey 20 weeks gestation of ([facility]) state, incidental documented [facility] this encounter [facility]* Diagnosis Preoperative examination- Primary Preoperative examination, unspecified Single subsegmental pulmonary embolism without acute cor pulmonale (HCC) Vapes nicotine containing substance Marijuana use Cannabis abuse, unspecified Generalized anxiety disorder Depression, unspecified depression type Paroxysmal SVT (supraventricular tachycardia) (HCC) Paroxysmal supraventricular tachycardia Supervision of other high risk pregnancies, second trimester (HCC)- Primary 20 weeks gestation of ([facility]) state, incidental History of shoulder dystocia in prior Rh negative state in antepartum period (HCC) Rhesus isoimmunization affecting management of mother, antepartum condition [facility] Diagnosis Preoperative examination- Primary Preoperative examination, unspecified Single subsegmental pulmonary embolism without acute cor pulmonale (HCC) Vapes nicotine containing substance Marijuana use Cannabis abuse, unspecified Generalized anxiety disorder Depression, unspecified depression type Paroxysmal SVT (supraventricular tachycardia) (HCC) Paroxysmal supraventricular tachycardia Supervision of other high risk pregnancies, second trimester (HCC)- Primary 28 weeks gestation of ([facility]) state, incidental Rh negative state in antepartum period (HCC) Rhesus isoimmunization affecting management of mother, antepartum condition Need for vaccination Need for prophylactic vaccination and inoculation against unspecified single disease Encounter for sterilization Sterilization History of shoulder dystocia in prior Heartburn during , antepartum, third trimester ([facility]) * Assessment & Plan Note - Yamila Ballard MD - 07/27/2024 2:03 PM EDT Associated Problem(s): Rh negative state in antepartum period ([facility]) rh prohylaxis * Assessment & Plan Note [...] Problem(s): Heartburn during , antepartum, third trimester ([facility]) d/c pepcid, trial prevacid [facility] Diagnosis SVT (supraventricular tachycardia) Other specified cardiac dysrhythmias documented in this encounter [facility] Work Phone: Evaluation note* Diagnosis Preoperative examination- Primary Preoperative examination, unspecified Single subsegmental pulmonary embolism without acute cor pulmonale ([facility]) Vapes nicotine containing substance Marijuana use Cannabis abuse, unspecified Generalized anxiety disorder Depression, unspecified depression type Paroxysmal SVT (supraventricular tachycardia) ([facility]) Paroxysmal supraventricular tachycardia Supervision of other high risk pregnancies, second trimester ([facility])- Primary 28 weeks gestation of ([facility]) state, incidental Rh negative state in antepartum period ([facility]) Rhesus isoimmunization affecting management of mother, antepartum condition Need for vaccination Need for prophylactic vaccination and inoculation against unspecified single disease Encounter for sterilization Sterilization History of shoulder dystocia in prior Heartburn during , antepartum, third trimester (HCC) Maternal iron deficiency anemia complicating , third trimester (HCC)- Primary [facility]* Diagnosis Preoperative examination- Primary Preoperative examination, unspecified Single subsegmental pulmonary embolism without acute cor pulmonale ([facility]) Vapes nicotine containing substance Marijuana use Cannabis abuse, unspecified Generalized anxiety disorder Depression, unspecified depression type Paroxysmal SVT (supraventricular tachycardia) (HCC) Paroxysmal supraventricular tachycardia Supervision of other high risk pregnancies, second trimester (HCC)- Primary 28 weeks gestation of ([facility]) state, incidental Rh negative state in antepartum period (HCC) Rhesus isoimmunization affecting management of mother, antepartum condition Need for vaccination Need for prophylactic vaccination and inoculation against unspecified single disease Encounter for sterilization Sterilization History of shoulder dystocia in prior Heartburn during , antepartum, third trimester (HCC) Supervision of high risk in third trimester (HCC)- Primary Unspecified high-risk Thrombocytopenia affecting (HCC) Antepartum anemia complicating in third trimester ([facility]) History of shoulder dystocia in prior Paroxysmal SVT (supraventricular tachycardia) (HCC) Paroxysmal supraventricular tachycardia * Assessment & Plan Note - Prabhu Ortez MD - 08/10/2024 11:33 AM EDTAssociated Problem(s): Paroxysmal SVT (supraventricular tachycardia) ([facility]) On metoprolol * Assessment & Plan Note - Prabhu Ortez MD - 08/10/2024 11:32 AM EDTAssociated Problem(s): Thrombocytopenia affecting ([facility]) Repeat CBC in 3 weeks * Assessment & Plan Note - Prabhu Ortez MD - 08/10/2024 11:32 AM EDTAssociated Problem(s): Antepartum anemia complicating in third trimester ([facility]) IV iron scheduled * Assessment & Plan Note - Prabhu Ortez MD - 08/10/2024 11:32 AM EDTAssociated Problem(s): History of shoulder dystocia in prior Plans unless EFW less than prior . [facility] Diagnosis Preoperative examination- Primary Preoperative examination, unspecified Single subsegmental pulmonary embolism without acute cor pulmonale ([facility]) Vapes nicotine containing substance Marijuana use Cannabis abuse, unspecified Generalized anxiety disorder Depression, unspecified depression type Paroxysmal SVT (supraventricular tachycardia) (HCC) Paroxysmal supraventricular tachycardia Supervision of other high risk pregnancies, second trimester (HCC)- Primary 28 weeks gestation of ([facility]) state, incidental Rh negative state in antepartum period (HCC) Rhesus isoimmunization affecting management of mother, antepartum condition Need for vaccination Need for prophylactic vaccination and inoculation against unspecified single disease Encounter for sterilization Sterilization History of shoulder dystocia in prior Heartburn during , antepartum, third trimester ([facility]) Supervision of high risk in third trimester ([facility])- Primary Unspecified high-risk Thrombocytopenia affecting ([facility]) Antepartum anemia complicating in third trimester ([facility]) History of shoulder dystocia in prior Paroxysmal SVT (supraventricular tachycardia) (HCC) Paroxysmal supraventricular tachycardia Maternal iron deficiency anemia complicating , third trimester ([facility])- [facility] Diagnosis Preoperative examination- Primary Preoperative examination, unspecified Single subsegmental pulmonary embolism without acute cor pulmonale ([facility]) Vapes nicotine containing substance Marijuana use Cannabis abuse, unspecified Generalized anxiety disorder Depression, unspecified depression type Paroxysmal SVT (supraventricular tachycardia) ([facility]) Paroxysmal supraventricular tachycardia Supervision of other high risk pregnancies, second trimester ([facility])- Primary 28 weeks gestation of ([facility]) state, incidental Rh negative state in antepartum period ([facility]) Rhesus isoimmunization affecting management of mother, antepartum condition Need for vaccination Need for prophylactic vaccination and inoculation against unspecified single disease Encounter for sterilization Sterilization History of shoulder dystocia in prior Heartburn during , antepartum, third trimester ([facility]) Supervision of high risk in third trimester ([facility])- Primary Unspecified high-risk Thrombocytopenia affecting ([facility]) Antepartum anemia complicating in third trimester ([facility]) History of shoulder dystocia in prior Paroxysmal SVT (supraventricular tachycardia) (HCC) Paroxysmal supraventricular tachycardia Maternal iron deficiency anemia complicating , third trimester ([facility])- Primary [facility]* Diagnosis Preoperative examination- Primary Preoperative examination, unspecified Single subsegmental pulmonary embolism without acute cor pulmonale ([facility]) Vapes nicotine containing substance Marijuana use Cannabis abuse, unspecified Generalized anxiety disorder Depression, unspecified depression type Paroxysmal SVT (supraventricular tachycardia) (HCC) Paroxysmal supraventricular tachycardia Supervision of other high risk pregnancies, second trimester ([facility])- Primary 28 weeks gestation of ([facility]) state, incidental Rh negative state in antepartum period ([facility]) Rhesus isoimmunization affecting management of mother, antepartum condition Need for vaccination Need for prophylactic vaccination and inoculation against unspecified single disease Encounter for sterilization Sterilization History of shoulder dystocia in prior Heartburn during , antepartum, third trimester ([facility]) Supervision of high risk in third trimester ([facility])- Primary Unspecified high-risk Thrombocytopenia affecting ([facility]) Antepartum anemia complicating in third trimester ([facility]) History of shoulder dystocia in prior Paroxysmal SVT (supraventricular tachycardia) ([facility]) Paroxysmal supraventricular tachycardia Supervision of high risk in third trimester ([facility])- Primary Unspecified high-risk Thrombocytopenia affecting ([facility]) History of shoulder dystocia in prior Antepartum anemia complicating in third trimester ([facility]) Paroxysmal SVT (supraventricular tachycardia) ([facility]) Paroxysmal supraventricular tachycardia 32 weeks gestation of ([facility]) state, incidental * Assessment & Plan Note - Prabhu Ortez MD - 08/24/2024 10:56 AM EDTAssociated Problem(s): Thrombocytopenia affecting ([facility]) Repeat CBC scheduled * Assessment & Plan Note - Prabhu Ortez MD - 08/24/2024 10:56 AM EDTAssociated Problem(s): History of shoulder dystocia in prior Plans * Assessment & Plan Note - Prabhu Ortez MD - 08/24/2024 10:56 AM EDTAssociated Problem(s): Antepartum anemia complicating in third trimester ([facility]) Last IV iron infusion today * Assessment & Plan Note - Prabhu Ortez MD - 08/24/2024 10:56 AM EDTAssociated Problem(s): Paroxysmal SVT (supraventricular tachycardia) (HCC) Continue metoprolol documented in this encounter [facility] note* Diagnosis Preoperative examination- Primary Preoperative examination, unspecified Single subsegmental pulmonary embolism without acute cor pulmonale (HCC) Vapes nicotine containing substance Marijuana use Cannabis abuse, unspecified Generalized anxiety disorder Depression, unspecified depression type Paroxysmal SVT (supraventricular tachycardia) (HCC) Paroxysmal supraventricular tachycardia Supervision of other high risk pregnancies, second trimester ([facility])- Primary 28 weeks gestation of ([facility]) state, incidental Rh negative state in antepartum period ([facility]) Rhesus isoimmunization affecting management of mother, antepartum condition Need for vaccination Need for prophylactic vaccination and inoculation against unspecified single disease Encounter for sterilization Sterilization History of shoulder dystocia in prior Heartburn during , antepartum, third trimester ([facility]) Supervision of high risk in third trimester ([facility])- Primary Unspecified high-risk Thrombocytopenia affecting ([facility]) Antepartum anemia complicating in third trimester ([facility]) History of shoulder dystocia in prior Paroxysmal SVT (supraventricular tachycardia) ([facility]) Paroxysmal supraventricular tachycardia Supervision of high risk in third trimester ([facility])- Primary Unspecified high-risk Thrombocytopenia affecting ([facility]) History of shoulder dystocia in prior Antepartum anemia complicating in third trimester ([facility]) Paroxysmal SVT (supraventricular tachycardia) ([facility]) Paroxysmal supraventricular tachycardia 32 weeks gestation of ([facility]) state, incidental Maternal iron deficiency anemia complicating , third trimester ([facility])- Primary documented in this encounter [facility] note* Diagnosis Preoperative examination- Primary Preoperative examination, unspecified Single subsegmental pulmonary embolism without acute cor pulmonale (HCC) Vapes nicotine containing substance Marijuana use Cannabis abuse, unspecified Generalized anxiety disorder Depression, unspecified depression type Paroxysmal SVT (supraventricular tachycardia) (HCC) Paroxysmal supraventricular tachycardia Supervision of other high risk pregnancies, second trimester ([facility])- Primary 28 weeks gestation of ([facility]) state, incidental Rh negative state in antepartum period ([facility]) Rhesus isoimmunization affecting management of mother, antepartum condition Need for vaccination Need for prophylactic vaccination and inoculation against unspecified single disease Encounter for sterilization Sterilization History of shoulder dystocia in prior Heartburn during , antepartum, third trimester ([facility]) Supervision of high risk in third trimester ([facility])- Primary Unspecified high-risk Thrombocytopenia affecting ([facility]) Antepartum anemia complicating in third trimester ([facility]) History of shoulder dystocia in prior Paroxysmal SVT (supraventricular tachycardia) ([facility]) Paroxysmal supraventricular tachycardia Supervision of high risk in third trimester ([facility])- Primary Unspecified high-risk Thrombocytopenia affecting ([facility]) History of shoulder dystocia in prior Antepartum anemia complicating in third trimester ([facility]) Paroxysmal SVT (supraventricular tachycardia) ([facility]) Paroxysmal supraventricular tachycardia 32 weeks gestation of ([facility]) state, incidental Encounter for ultrasound to check growth ([facility])- Primary Encounter for routine screening for malformation using ultrasonics History of shoulder dystocia in prior 34 weeks gestation of ([facility]) state, incidental [facility] Diagnosis Preoperative examination- Primary Preoperative examination, unspecified Single subsegmental pulmonary embolism without acute cor pulmonale ([facility]) Vapes nicotine containing substance Marijuana use Cannabis abuse, unspecified Generalized anxiety disorder Depression, unspecified depression type Paroxysmal SVT (supraventricular tachycardia) ([facility]) Paroxysmal supraventricular tachycardia Supervision of other high risk pregnancies, second trimester ([facility])- Primary 28 weeks gestation of ([facility]) state, incidental Rh negative state in antepartum period ([facility]) Rhesus isoimmunization affecting management of mother, antepartum condition Need for vaccination Need for prophylactic vaccination and inoculation against unspecified single disease Encounter for sterilization Sterilization History of shoulder dystocia in prior Heartburn during , antepartum, third trimester ([facility]) Supervision of high risk in third trimester ([facility])- Primary Unspecified high-risk Thrombocytopenia affecting ([facility]) Antepartum anemia complicating in third trimester ([facility]) History of shoulder dystocia in prior Paroxysmal SVT (supraventricular tachycardia) ([facility]) Paroxysmal supraventricular tachycardia Supervision of high risk in third trimester ([facility])- Primary Unspecified high-risk Thrombocytopenia affecting ([facility]) History of shoulder dystocia in prior Antepartum anemia complicating in third trimester ([facility]) Paroxysmal SVT (supraventricular tachycardia) ([facility]) Paroxysmal supraventricular tachycardia 32 weeks gestation of ([facility]) state, incidental Supervision of high risk in third trimester ([facility])- Primary Unspecified high-risk 34 weeks gestation of ([facility]) state, incidental History of shoulder dystocia in prior * Assessment & Plan Note - Yaimla Ballard MD - 09/08/2024 8:33 AM EDT Associated Problem(s): History of shoulder dystocia in prior plans c/s and tubal Orders: URINE OB DIP B/O [facility]* Diagnosis Preoperative examination- Primary Preoperative examination, unspecified Single subsegmental pulmonary embolism without acute cor pulmonale ([facility]) Vapes nicotine containing substance Marijuana use Cannabis abuse, unspecified Generalized anxiety disorder Depression, unspecified depression type Paroxysmal SVT (supraventricular tachycardia) ([facility]) Paroxysmal supraventricular tachycardia Supervision of other high risk pregnancies, second trimester ([facility])- Primary 28 weeks gestation of ([facility]) state, incidental Rh negative state in antepartum period ([facility]) Rhesus isoimmunization affecting management of mother, antepartum condition Need for vaccination Need for prophylactic vaccination and inoculation against unspecified single disease Encounter for sterilization Sterilization History of shoulder dystocia in prior Heartburn during , antepartum, third trimester ([facility]) Supervision of high risk in third trimester ([facility])- Primary Unspecified high-risk Thrombocytopenia affecting ([facility]) Antepartum anemia complicating in third trimester ([facility]) History of shoulder dystocia in prior Paroxysmal SVT (supraventricular tachycardia) ([facility]) Paroxysmal supraventricular tachycardia Supervision of high risk in third trimester ([facility])- Primary Unspecified high-risk Thrombocytopenia affecting ([facility]) History of shoulder dystocia in prior Antepartum anemia complicating in third trimester ([facility]) Paroxysmal SVT (supraventricular tachycardia) ([facility]) Paroxysmal supraventricular tachycardia 32 weeks gestation of ([facility]) state, incidental Supervision of high risk in third trimester ([facility])- Primary Unspecified high-risk 34 weeks gestation of ([facility]) state, incidental History of shoulder dystocia in prior 35 weeks gestation of ([facility])- Primary state, incidental Irregular uterine contractions ([facility]) Other and unspecified uterine inertia, unspecified as to episode of care Supervision of high risk in third trimester ([facility]) Unspecified high-risk documented in this encounter [facility] note* Diagnosis Preoperative examination- Primary Preoperative examination, unspecified Single subsegmental pulmonary embolism without acute cor pulmonale ([facility]) Vapes nicotine containing substance Marijuana use Cannabis abuse, unspecified Generalized anxiety disorder Depression, unspecified depression type Paroxysmal SVT (supraventricular tachycardia) ([facility]) Paroxysmal supraventricular tachycardia Supervision of other high risk pregnancies, second trimester ([facility])- Primary 28 weeks gestation of ([facility]) state, incidental Rh negative state in antepartum period ([facility]) Rhesus isoimmunization affecting management of mother, antepartum condition Need for vaccination Need for prophylactic vaccination and inoculation against unspecified single disease Encounter for sterilization Sterilization History of shoulder dystocia in prior Heartburn during , antepartum, third trimester ([facility]) Supervision of high risk in third trimester ([facility])- Primary Unspecified high-risk Thrombocytopenia affecting ([facility]) Antepartum anemia complicating in third trimester ([facility]) History of shoulder dystocia in prior Paroxysmal SVT (supraventricular tachycardia) ([facility]) Paroxysmal supraventricular tachycardia Supervision of high risk in third trimester ([facility])- Primary Unspecified high-risk Thrombocytopenia affecting ([facility]) History of shoulder dystocia in prior Antepartum anemia complicating in third trimester ([facility]) Paroxysmal SVT (supraventricular tachycardia) ([facility]) Paroxysmal supraventricular tachycardia 32 weeks gestation of ([facility]) state, incidental Supervision of high risk in third trimester ([facility])- Primary Unspecified high-risk 34 weeks gestation of ([facility]) state, incidental History of shoulder dystocia in prior Supervision of high risk in third trimester ([facility])- Primary Unspecified high-risk History of pulmonary embolism Personal history of pulmonary embolism History of shoulder dystocia in prior Abnormality in heart rate or rhythm, antepartum ([facility]) Abnormality in heart rate/rhythm, antepartum condition or complication Antepartum anemia complicating in third trimester ([facility]) Irregular uterine contractions ([facility]) Other and unspecified uterine inertia, unspecified as to episode of care 37 weeks gestation of ([facility]) state, incidental Vaginal discharge during in third trimester ([facility]) documented in this encounter [facility] note* Diagnosis Preoperative examination- Primary Preoperative examination, unspecified Single subsegmental pulmonary embolism without acute cor pulmonale ([facility]) Vapes nicotine containing substance Marijuana use Cannabis abuse, unspecified Generalized anxiety disorder Depression, unspecified depression type Paroxysmal SVT (supraventricular tachycardia) ([facility]) Paroxysmal supraventricular tachycardia Supervision of other high risk pregnancies, second trimester ([facility])- Primary 28 weeks gestation of ([facility]) state, incidental Rh negative state in antepartum period ([facility]) Rhesus isoimmunization affecting management of mother, antepartum condition Need for vaccination Need for prophylactic vaccination and inoculation against unspecified single disease Encounter for sterilization Sterilization History of shoulder dystocia in prior Heartburn during , antepartum, third trimester ([facility]) Supervision of high risk in third trimester ([facility])- Primary Unspecified high-risk Thrombocytopenia affecting ([facility]) Antepartum anemia complicating in third trimester ([facility]) History of shoulder dystocia in prior Paroxysmal SVT (supraventricular tachycardia) ([facility]) Paroxysmal supraventricular tachycardia Supervision of high risk in third trimester ([facility])- Primary Unspecified high-risk Thrombocytopenia affecting ([facility]) History of shoulder dystocia in prior Antepartum anemia complicating in third trimester ([facility]) Paroxysmal SVT (supraventricular tachycardia) ([facility]) Paroxysmal supraventricular tachycardia 32 weeks gestation of ([facility]) state, incidental Supervision of high risk in third trimester ([facility])- Primary Unspecified high-risk 34 weeks gestation of ([facility]) state, incidental History of shoulder dystocia in prior Yeast vaginitis- Primary Candidiasis of vulva and vagina [facility] Diagnosis Preoperative examination- Primary Preoperative examination, unspecified Single subsegmental pulmonary embolism without acute cor pulmonale ([facility]) Vapes nicotine containing substance Marijuana use Cannabis abuse, unspecified Generalized anxiety disorder Depression, unspecified depression type Paroxysmal SVT (supraventricular tachycardia) ([facility]) Paroxysmal supraventricular tachycardia Supervision of other high risk pregnancies, second trimester ([facility])- Primary 28 weeks gestation of ([facility]) state, incidental Rh negative state in antepartum period ([facility]) Rhesus isoimmunization affecting management of mother, antepartum condition Need for vaccination Need for prophylactic vaccination and inoculation against unspecified single disease Encounter for sterilization Sterilization History of shoulder dystocia in prior Heartburn during , antepartum, third trimester ([facility]) Antepartum anemia complicating in third trimester ([facility])- Primary Supervision of high risk in third trimester ([facility])- Primary Unspecified high-risk Thrombocytopenia affecting ([facility]) Antepartum anemia complicating in third trimester ([facility]) History of shoulder dystocia in prior Paroxysmal SVT (supraventricular tachycardia) ([facility]) Paroxysmal supraventricular tachycardia Supervision of high risk in third trimester ([facility])- Primary Unspecified high-risk Thrombocytopenia affecting ([facility]) History of shoulder dystocia in prior Antepartum anemia complicating in third trimester ([facility]) Paroxysmal SVT (supraventricular tachycardia) ([facility]) Paroxysmal supraventricular tachycardia 32 weeks gestation of ([facility]) state, incidental Supervision of high risk in third trimester ([facility])- Primary Unspecified high-risk 34 weeks gestation of ([facility]) state, incidental History of shoulder dystocia in prior [facility] Diagnosis Preoperative examination- Primary Preoperative examination, unspecified Single subsegmental pulmonary embolism without acute cor pulmonale ([facility]) Vapes nicotine containing substance Marijuana use Cannabis abuse, unspecified Generalized anxiety disorder Depression, unspecified depression type Paroxysmal SVT (supraventricular tachycardia) ([facility]) Paroxysmal supraventricular tachycardia Supervision of other high risk pregnancies, second trimester ([facility])- Primary 28 weeks gestation of ([facility]) state, incidental Rh negative state in antepartum period ([facility]) Rhesus isoimmunization affecting management of mother, antepartum condition Need for vaccination Need for prophylactic vaccination and inoculation against unspecified single disease Encounter for sterilization Sterilization History of shoulder dystocia in prior Heartburn during , antepartum, third trimester ([facility]) Supervision of high risk in third trimester ([facility])- Primary Unspecified high-risk Thrombocytopenia affecting ([facility]) Antepartum anemia complicating in third trimester ([facility]) History of shoulder dystocia in prior Paroxysmal SVT (supraventricular tachycardia) ([facility]) Paroxysmal supraventricular tachycardia Supervision of high risk in third trimester ([facility])- Primary Unspecified high-risk Thrombocytopenia affecting ([facility]) History of shoulder dystocia in prior Antepartum anemia complicating in third trimester ([facility]) Paroxysmal SVT (supraventricular tachycardia) ([facility]) Paroxysmal supraventricular tachycardia 32 weeks gestation of ([facility]) state, incidental Supervision of high risk in third trimester ([facility])- Primary Unspecified high-risk 34 weeks gestation of (H[facility]) state, incidental History of shoulder dystocia in prior Supervision of high risk in third trimester ([facility])- Primary Unspecified high-risk 37 weeks gestation of ([facility]) state, incidental History of pulmonary embolism Personal history of pulmonary embolism History of shoulder dystocia in prior Antepartum anemia complicating in third trimester (HCC) headache in third trimester ([facility]CC) Rh negative state in antepartum period ([facility]) Rhesus isoimmunization affecting management of mother, antepartum condition History of depression Personal history of other mental disorder documented [facility] Author Yamila Ballard [facility] Note Date/Time September 09, 2024 3:02 pm [facility] Medical Records Department [address] [place] [address] OB Triage Physician Note 09/09/24 1451 MR#: [id number] Acct: [id number] Name: KEAGAN ALICIA Rep #:[id number] : 2000 23 From: Yamila Ballard MD PCP: Rachell Amador NP-C Status:MYLA Welch Location: [id number] HPI - General General Date of Service: [...] 1d Final LUZ: 10/13/24 Gestational age: 35 1/7 [facility] Medical History (Updated 09/09/24 @ 14:[address] 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 09/09/24 1502 <Electronically signed by Yamila linn MD> Date _ Yamila Ballard MD Cosigner Signature (if applicable): Date CC: ARACELY-C Rachell Amador; Dr. Yamila Ballard MD ~ Signed [facility] Work Phone: History and physical note Author Jaquelin Hi [facility] Note Date/Time September 19, 2024 1: 40pm [facility] Medical Records Department [address] [place] [address] OB Triage Physician Note 09/19/24 1330 MR#: [id number] Acct: [id number] Name: KEAGAN ALICIA Rep #:[id number] : 2000 23 From: Jaquelin HARMAN PCP: ZIA Duke Status:REG C LI Y Location: [id number] HPI - General HPI Narrative KEAGAN ALICIA, is a 23 F who presents at 36 weeks. States leakage of fluid at 0400 and underwear wet throughout the day. Intermittent non painful contractions. Maternal Data Information LUZ Calculator Estimated Delivery Date Method Current WG Current Estimate 10/13/24 Manual 36w 4d PFSH PFSH Medical History (Updated 09/19/24 @ 13:40 by Jaquelin Hi CNM) Pulmonary embolism Anxiety depression Depression Home Medications ?Medication ?Instructions ?Recorded ?Last Taken ?Type vit no.95-ferrous 1 tab PO DAILY 09/08/24 07:00 History fumarate 28 mg-folic acid 800 mcg 1 TA B tablet () aspirin 81 mg capsule 81 mg PO DAILY 09/08/24 07 07:00 History 81 mg metoprolol succinate 25 mg 25 mg PO BID SVT 09/08/24 0 09/08/24 20:00 History tablet,extended release 24 hr 25 mg Allergy/AdvReac Type Severity Reaction Status Date / Time latex AdvReac Mild Itching Verified 09/19/24 12:47 Family History Father Drug abuse Surgical History [...] births # of living children Physical Exam Manual OB Exam: presentation cephalic, dilated 2cm, effaced 50%, station - 2 and other no gross fluid and can palpate bag of water. NST FHR Rate Baby A Baseline: 145 Variability:: Moderate Accelerations:: 15 x 15 Decelerations:: None NST Reactive:: Yes Uterine Activity:: Irregular, mild Assessment & Plan (1) Vaginal discharge: (2) 36 weeks gestation of : PLAN: Plan 1) ROM plus negative and no gross rupture 2) Reactive NST 3) D/C home 09/19/24 1340 <Electronically signed by Jaquelin Hi CNM> Date _ Jauqelin Hi CNM Cosigner Signature (if applicable): Date CC: FRANDY Hi; BIOMETRICS SPECIALIST-C Rachell Amador ~ Signed [facility] Work Phone: Hospital Discharge instructions Additional Instructions Avoid fatty foods including animal meats as much as you are able.[facility] Work Phone: Hospital Discharge instructions* Attachments The following attachments cannot be sent through Care Everywhere. * Managing pain after surgery ([place]) [facility]* Attachments The following attachments cannot be sent through Care Everywhere. * Managing acute pain at home ([place]) documented in this [facility] Work Phone: Hospital Discharge instructions* Attachments The following attachments cannot be sent through Care Everywhere. * Pulmonary Embolism (Blood Clot in the Lungs) Discharge Instructions ([place]) documented in this [facility] Work Phone: Hospital Discharge instructions* Attachments The following attachments cannot be sent through Care Everywhere. * Heavy periods ([place]) documented in this [facility] Work Phone: Hospital Discharge instructions* Attachments The following attachments cannot be sent through Care Everywhere. * Low Blood Sugar, Adult ED ([place]) * Nausea and Vomiting, Adult ED ([place]) * Urinary tract infections in ([place]) documented in this [facility] Work Phone: Hospital Discharge instructions* Attachments The following attachments cannot be sent through Care Everywhere. * Signs of Labor ([facility]) ([place]) * : UTI (Urinary Tract Infection) ([place]) [facility] Additional Instructions Keep next office appointment.[facility] Work Phone: Reason for referral (narrative)* Outpatient Procedure (Routine) - Authorized Specialty Diagnoses / Procedures Referred By Contac t Referred To Contact [facility] Diagnoses Abnormal uterine bleeding (AUB) Encounter for removal of intrauterine contraceptive device Encounter for insertion of intrauterine contraceptive device Procedures INSERT INTRAUTERINE DEVICE LEVONORGESTREL IU 52MG 5 YR INSERT INTRAUTERINE DEVICE REMOVE INTRAUTERINE DEVICE Prabhu Ortez MD [address] [place] [address] [facility] [address] [place] [address] Referral ID Status Reason Start Date Expiration Date Visits Requested Visits Authorized [id number] Authorized Auto-Generat ed Referral 06/26/2023 02/10/[address] [facility] for referral (narrative)* Diagnostic Procedure Only (Routine) - Authorized Specialty Diagnoses / Procedures Referred By Contac t Referred To Contact [facility] Diagnoses Pelvic pain in female Intrauterine contraceptive device threads lost, initial encounter Irregular bleeding Procedures PELVIC US WHI US PELVIC NONOBSTETRIC REAL-TIME IMAGE COMPLETE Sandra Cole APRN.CNP [address] [place] [address] [facility] [address] [place] [address] Referral ID Status Reason Start Date Expiration Date Visits Requested Visits Authorized [id number] Authorized Auto-Generat ed Referral 08/18/2023 08/17/[address] [facility] for referral (narrative)* Diagnostic Procedure Only (Routine) - Closed Specialty Diagnoses / Procedures Referred By Contac t Referred To Contact [facility] Diagnoses Malpositioned IUD, sequela Pelvic pain in female Procedures XR PELVIS 3V AP/INLET/OUTLET RADIOLOGIC EXAM PELVIS COMPL MINIMUM 3 VIEWS Mary Jo Chance MD [address] [place] [address] [place] [address] Referral ID Status Reason Start Date Expiration Date V isits Requested Visits Authorized [id number] Closed Auto-Generate d Referral 08/20/2023 09/18/2024 1 1 * Outpatient Procedure (Routine) - Authorized Specialty Diagnoses / Procedures Referred By Tone musa Referred To Contact [facility] Diagnoses Encounter for IUD removal Encounter for insertion of intrauterine contraceptive device Procedures REMOVE INTRAUTERINE DEVICE REMOVE INTRAUTERINE DEVICE INSERT INTRAUTERINE DEVICE LEVONORGESTREL IU 52MG 5 YR Mary Jo Chance MD [address] [place] [address] [place] [id number] [place] [id number] Referral ID Status Reason Start Date Expiration Date Visits Requested Visits Authorized [id number] Authorized Auto-Generat ed Referral 08/20/2023 02/10/[address] [facility] for referral (narrative)No reason for referral information availableWTriHealth [facility] Work Phone: Reason for visit Narrative* Diagnostic Procedure Only (Routine) - Closed Specialty Diagnoses / Procedures Referred By Tone musa Referred To Contact [facility] Diagnoses Pelvic pain in female Intrauterine contraceptive device threads lost, initial encounter Irregular bleeding Procedures PELVIC US WHI US PELVIC NONOBSTETRIC REAL-TIME IMAGE COMPLETE Sandra Cole APRN.BLOOD TESTER FOWL [address] [place] [address] [address] Referral ID Status Reason Start Date Expiration Date V isits Requested Visits Authorized [id number] Closed Auto-Generate d Referral 08/18/2023 08/17/[address] [facility] for visit Narrative* Diagnostic Procedure Only (Routine) - Closed Specialty Diagnoses / Procedures Referred By Contac t Referred To Contact [facility] Diagnoses Malpositioned IUD, sequela Pelvic pain in female Procedures XR PELVIS 3V AP/INLET/OUTLET RADIOLOGIC EXAM PELVIS COMPL MINIMUM 3 VIEWS Mary Jo Chance MD [address] [place] [address] [place] [address] Referral ID Status Reason Start Date Expiration Date V isits Requested Visits Authorized [id number] Closed Auto-Generate d Referral 08/20/2023 09/18/[address] [facility] for visit Narrative* Outpatient Procedure (Routine) - Closed Specialty Diagnoses / Procedures [facility] Diagnoses Paroxysmal SVT (supraventricular tachycardia) (HCC) Palpitations Procedures ECHO ECHO TTHRC R-T 2D W/WOM-MODE COMPL SPEC&COLR D Rachell Amador, BOND TRADER.BLOOD TESTER [address] [place] [address] [facility] [place] [address] [place] [address] Referral ID Status Reason Start Date Expiration Date V isits Requested Visits Authorized [id number] Closed Auto-Generate d Referral 08/20/2023 10/03/[address] [facility] for visit Narrative* Auth/Cert Specialty Diagnoses / Procedures Referred By Doeac t Referred To Contact Diagnoses SVT (supraventricular tachycardia) (CMS-HCC) SVT (supraventricular tachycardia) (CMS-HCC) [I47.10] Procedures [place] COMPRE EP EVAL ABLTJ 3D MAPG TX SVT Ablation SVT (85940) Ramiro Hugo MD [address] [facility] [address] [place] [address] Par [facility] [address] [place] [address] Referral ID Status Reason Start Date Expiration Date Visits Re quested Visits Authorized [id number] 1 1 [facility] Work Phone: [facility] for visit Narrative* [place] Prior Authorization (Routine) - Authorized Specialty Diagnoses / Procedures Referred By Contac t Referred To Contact Diagnoses Maternal iron deficiency anemia complicating , third trimester (HCC) Nayely Gil PA-C [address] [facility] [place] [address] Phone: tel: fax: INFUSION [address] [place] [address] Phone: tel: fax: Referral ID Status Reason Start Date Expiration Date V isits Requested Visits Authorized [id number] Authorized 08/06/2024 02/09/2025 [address] [facility] Summary Purpose Family History Relationship Condition Age at Onset Recorded Date/T vanessa father Drug abuse Unknown Advance Directives Advance Directive Response Recorded Date/ Time Living Will No January 07, 2 021 2:03pm Power of Chalk Tester No January 07, 2021 2:03pm Documents on File Type Date Recorded Patient Women'S Ministry Director Expl anation Advance Directive(s) 05/15/2021 9:17 AM Advance Directive Response Recorded Date/ Time Living Will No January 07, 2 021 1:03pm Power of Chalk Tester No January 07, 2021 1:03pm Advance Directive Response Recorded Date/ Time Living Will No August 17, 2022 1 0:35am Power of Chalk Tester No August 17, 2022 10:35am Advance Directive Response Recorded Date/ Time Living Will No August 29, 2022 3:34pm Power of Chalk Tester No August 29 3:34pm Date Activated Date [...] June 22, 2023 9 :41am Power of Chalk Tester No June 22, 2023 9:41am Date Activated Date Inactivated Comments 07/01/2017 10:18 AM Chief Complaint and Reason for Visit Chief Complaint SAB Chief Complaint PRISON DRUG USE Chief Complaint PRISON DRUG USE TEST LEAD APPLICATION TESTING DRUG USE Chief Complaint abd pain Chief [...] Vaginal discharge September 09, 2024 11:0 9am Chief Complaint Admit Date R/O PRE E August 03, 2024 1:17 pm R/O LABOR September 07, 2024 10:5 0pm R/O RUM September 09, 2024 11:0 9am R/O LABOR - ROM September 19, 2024 12 :37pm Reason for Visit Admit Date Headache in August 03, 2024 1: 17pm High risk multigravida in third trimeste r September 07, 2024 10:50pm Threatened labor September 07, 2024 10:50pm arrhythmia affecting , an tepartum September 09, 2024 11:09am High risk multigravida in third trimeste r September 09, 2024 11:09am History of delivery September 09, 2 025 11:09am Threatened labor September 09, 2024 11:09am Vaginal discharge September 09, 2024 11:0 9am 36 weeks gestation of September 102024 12:37pm Vaginal discharge September 19, 2024 12 :37pm Reason for Referral Specialty Diagnoses / Procedures Referred By Contac t Referred To Contact Diagnoses Episode of recurrent major depressive disorder, unspecified depression episode severity (HCC) Anxiety PTSD (post-traumatic stress disorder) Post depression Procedures CONSULT TO WOMEN'S BEHAVIORAL HEALTH OFFICE/OUTPATIENT [facility] 60 MINUTES Gino Valero APRN.FRANDY [address] [place] [address] Referral ID Status Reason Start Date Expiration Date Visits Requested Visits Authorized [id number] Authorized PCP Requested Referral 04/23/2023 04/22/2024 1 1 Specialty Diagnoses / Procedures Referred By Contac t Referred To Contact Cardiology Diagnoses Single subsegmental pulmonary embolism without acute cor pulmonale (Multi) Procedures Vascular US Lower Extremity Venous Duplex Bilateral Norbert Herndon MD [address] [place] [address] [address] [place] [address] Referral ID Status Reason Start Date Expiration Date Visits Requested Visits Authorized [id number] Authorized Perform Procedure 06/25/2023 06/24/2024 1 1 Specialty Diagnoses / Procedures Referred By Contac t Referred To Contact Cardiology Diagnoses Palpitations Procedures Holter Or Event Commutator Repairer Norbert Herndon MD [address] [place] [address] [address] [place] [address] Referral ID Status Reason Start Date Expiration Date V isits Requested Visits Authorized [id number] Pending Review 06/25/2023 06/24/2024 1 1 Referral ID Status Reason Start Date Expiration Date V isits Requested Visits Authorized [id number] Authorized 06/25/2023 06/24/2024 1 1 Specialty Diagnoses / Procedures Referred By Contac t Referred To Contact Cardiology / [facility] Diagnoses Paroxysmal SVT (supraventricular tachycardia) (HCC) Palpitations Procedures CONSULT TO CARDIOLOGY OFFICE/OUTPATIENT [facility] 60 MINUTES Rachell Amador APRN.BLOOD TESTER FOWL [address] [place] [address] [address] Dutta, [address] [place] [address] Referral ID Status Reason Start Date Expiration Date Visits Requested Visits Authorized [id number] Authorized PCP Requested Referral 07/31/2023 07/30/2024 1 1 Specialty Diagnoses / Procedures Referred By Contac t [facility] Diagnoses Paroxysmal SVT (supraventricular tachycardia) (HCC) Palpitations Procedures ECHO ECHO TTHRC R-T 2D W/WOM-MODE COMPL SPEC&COLR D Rachell Amador APRN.BLOOD TESTER [address]L [address] [place] [address] [facility] [address] [place] [address] Referral ID Status Reason Start Date Expiration Date Visits Requested Visits Authorized [id number] Additional Clinical Info Needed Auto-Generat ed Referral 07/31/2023 07/30/2024 1 1 Specialty Diagnoses / Procedures Referred By Contac t Referred To Contact [facility] Diagnoses Paroxysmal SVT (supraventricular tachycardia) (HCC) Procedures CONSULT TO ELECTROPHYSIOLOGY OFFICE/OUTPATIENT [facility] 60 MINUTES Rachell Amador APRN.BLOOD TESTER F[address]L [address] [place] [address] [place] [address] Referral ID Status Reason Start Date Expiration Date Visits Requested Visits Authorized [id number] Authorized PCP Requested Referral 07/31/2023 07/30/2024 1 1 Specialty Diagnoses / Procedures Referred By Contac t Referred To Contact General Surgery Diagnoses Functional diarrhea Procedures CONSULT TO GENERAL SURGERY OFFICE/OUTPATIENT [facility] 60 MINUTES Mary Jo Chance MD [address] [place] [address] Referral ID Status Reason Start Date Expiration Date Visits Requested Visits Authorized [id number] Authorized PCP Requested Referral 09/23/2023 2024 1 1 Specialty Diagnoses / Procedures Referred By Contac t Referred To Contact Gastroenterology Diagnoses Functional diarrhea Procedures CONSULT TO GASTROENTEROLOGY OFFICE/OUTPATIENT [facility] 60 MINUTES Mary Jo Chance MD [address] [place] [address] Referral ID Status Reason Start Date Expiration Date Visits Requested Visits Authorized [id number] Authorized PCP Requested Referral 09/23/2023 2024 1 1 Specialty Diagnoses / Procedures Referred By Contac t Referred To Contact Gastroenterology Diagnoses Functional diarrhea Status post laparoscopic cholecystectomy Procedures CONSULT TO GASTROENTEROLOGY OFFICE/OUTPATIENT [facility] 60 MINUTES Conor Duarte MD [address] [place] [address] Referral ID Status Reason Start Date Expiration Date Visits Requested Visits Authorized [id number] Authorized PCP Requested Referral 09/29/2023 09/28/2024 1 1 Specialty Diagnoses / Procedures Referred By Contac t Referred To Contact Diagnoses Pulmonary embolism (Multi) SVT (supraventricular tachycardia) ([facility]) Palpitations Procedures ECG 12 lead (Clinic Performed) Ramiro Hugo MD [address] [facility] [address], [address] [address] Referral ID Status Reason Start Date Expiration Date V isits Requested Visits Authorized [id number] Authorized 08/21/2023 08/20/2024 1 1 Specialty Diagnoses / Procedures Referred By Contac t Referred To Contact Hematology Diagnoses History of pulmonary embolism Supervision of other high risk pregnancies, first trimester Procedures CONSULT TO HEMATOLOGY OFFICE/OUTPATIENT [facility] 60 MINUTES Jaquelin Hi APRN.CNM [address] [place] [address] Referral ID Status Reason Start Date Expiration Date Visits Requested Visits Authorized [id number] Authorized PCP Requested Referral 03/10/2024 03/10/2025 1 1 Specialty Diagnoses / Procedures Referred By Contac t Referred To Contact [facility] Diagnoses with uncertain dates, antepartum Procedures OBSTETRIC ULTRASOUND WHI US PREG UTERUS AFTER 1ST TRIMEST GESTATION Jaquelin Hi APRN.CNLilly [address] [place] [address] [facility] [address] [place] [address] Referral ID Status Reason Start Date Expiration Date Visits Requested Visits Authorized [id number] Authorized Auto-Generat ed Referral 03/09/2024 03/09/2025 1 1 Referral ID Status Reason Start Date Expiration Date Visits Requested Visits Authorized [id number] Authorized Auto-Generat ed Referral 03/09/2024 03/09/2025 1 1 Specialty Diagnoses / Procedures Referred By Contac t Referred To Contact Jaquelin Hi APRN.CNM [address] [place] [address] Referral ID Status Reason Start Date Expiration Date V isits Requested Visits Authorized [id number] Pending Review 1 1 Health Concerns Problem Noted Date Diagnosed Date [facility] CC Education - COMMON 10/10/2022 Problem Noted Date Diagnosed Date [facility] CC Education - COMMON 10/10/2022 [facility] Education - COMMON 10/23/2022 Education - [place] 10/23/2022 Problem Noted Date Diagnosed Date [facility] CC Education - COMMON 10/10/2022 [facility] CC Education - COMMON 10/23/2022 Education - [place] 10/23/2022 Problem Noted Date Diagnosed Date [facility] CC Education - COMMON 10/10/2022 [facility] CC Education - COMMON 10/23/2022 Education - [place] 10/23/2022 Problem Noted Date Diagnosed Date [facility] CC Education - COMMON 10/10/2022 [facility] CC Education - COMMON 10/23/2022 Education - [place] 10/23/2022 Problem Noted Date Diagnosed Date [facility] CC Education - COMMON 10/10/2022 [facility] CC Education - COMMON 10/23/2022 Education - [place] 10/23/2022 Problem Noted Date Diagnosed Date [facility] CC Education - COMMON 10/10/2022 [facility] CC Education - COMMON 10/23/2022 Education - [place] 10/23/2022 Additional Source Comments INFORMATION SOURCE (unrecogn ized section and content) DATE CREATED AUTHOR 08/05/2017 [facility] DATE CREATED AUTHOR AUTHOR'S ORGANIZ ATION 08/07/2017 [facility] DATE CREATED AUTHOR AUTHOR'S ORGANIZ ATION 07/21/2019 [facility] DATE CREATED AUTHOR AUTHOR'S ORGANIZ ATION 07/21/[address] [facility] DATE CREATED AUTHOR AUTHOR'S ORGANIZ ATION 08/23/2022 [employer] DATE CREATED AUTHOR AUTHOR'S ORGANIZ ATION 07/15/2023 [facility] DATE CREATED AUTHOR AUTHOR'S ORGANIZ ATION 09/16/2023 [facility] DATE CREATED AUTHOR AUTHOR'S ORGANIZ ATION 10/08/2023 [facility] DATE CREATED AUTHOR AUTHOR'S ORGANIZ ATION 01/30/2024 [facility] DATE CREATED AUTHOR AUTHOR'S ORGANIZ ATION 02/05/2024 [facility] DATE CREATED AUTHOR AUTHOR'S ORGANIZ ATION 02/24/2024 [facility] DATE CREATED AUTHOR AUTHOR'S ORGANIZ ATION 08/04/2024 [facility] DATE CREATED AUTHOR AUTHOR'S ORGANIZ ATION 09/05/2024 [facility] DATE CREATED AUTHOR AUTHOR'S ORGANIZ ATION 09/13/2024 [facility] DATE CREATED AUTHOR AUTHOR'S ORGANIZ ATION 09/16/2024 [facility] DATE CREATED AUTHOR AUTHOR'S ORGANIZ ATION 09/29/2024 [facility] DATE CREATED AUTHOR AUTHOR'S ORGANIZ ATION 10/05/2024 [facility] <item><item> Privacy Markings (unrecogniz ed [...] or prosecute any alcohol or drug abuse patient.[facility] HospitalIn the event this information is protected by the Federal Confidentiality of Alcohol and Drug Abuse Patient Records regulations: The Federal rules restrict any use of the information to criminally investigate or prosecute any alcohol or drug abuse patient.[facility] HospitalIn the event this information is protected by the Federal Confidentiality of Alcohol and Drug Abuse Patient Records regulations: The Federal rules restrict any use of the information to criminally investigate or prosecute any alcohol or drug abuse patient.[facility] HospitalIn the event this information is protected by the Federal Confidentiality of Alcohol and Drug Abuse Patient Records regulations: The Federal rules restrict any use of the information to criminally investigate or prosecute any alcohol or drug abuse patient.[facility] HospitalIn the event this information is protected by the Federal Confidentiality of Alcohol and Drug Abuse Patient Records regulations: The Federal rules restrict any use of the information to criminally investigate or prosecute any alcohol or drug abuse patient.[facility] HospitalIn the event this information is protected by the Federal Confidentiality of Alcohol and Drug Abuse Patient Records regulations: The Federal rules restrict any use of the information to criminally investigate or prosecute any alcohol or drug abuse patient.[facility] HospitalIn the event this information is protected by the Federal Confidentiality of Alcohol and Drug Abuse Patient Records regulations: The Federal rules restrict any use of the information to criminally investigate or prosecute any alcohol or drug abuse patient.[facility] HospitalIn the event this information is protected by the Federal Confidentiality of Alcohol and Drug Abuse Patient Records regulations: The Federal rules restrict any use of the information to criminally investigate or prosecute any alcohol or drug abuse patient.[facility] HospitalIn the event this information is protected by the Federal Confidentiality of Alcohol and Drug Abuse Patient Records regulations: The Federal rules restrict any use of the information to criminally investigate or prosecute any alcohol or drug abuse patient.[facility] HospitalIn the event this information is protected by the Federal Confidentiality of Alcohol and Drug Abuse Patient Records regulations: The Federal rules restrict any use of the information to criminally investigate or prosecute any alcohol or drug abuse patient.[facility] HospitalIn the event this information is protected by the Federal Confidentiality of Alcohol and Drug Abuse Patient Records regulations: The Federal rules restrict any use of the information to criminally investigate or prosecute any alcohol or drug abuse patient.[facility] HospitalIn the event this information is protected by the Federal Confidentiality of Alcohol and Drug Abuse Patient Records regulations: The Federal rules restrict any use of the information to criminally investigate or prosecute any alcohol or drug abuse patient.[facility] the event this information is protected by the Federal Confidentiality of Alcohol and Drug Abuse Patient Records regulations: The Federal rules restrict any use of the information to criminally investigate or prosecute any alcohol or drug abuse patient.[facility] HospitalIn the event this information is protected by the Federal Confidentiality of Alcohol and Drug Abuse Patient Records regulations: The Federal rules restrict any use of the information to criminally investigate or prosecute any alcohol or drug abuse patient.[facility] HospitalIn the event this information is protected by the Federal Confidentiality of Alcohol and Drug Abuse Patient Records regulations: The Federal rules restrict any use of the information to criminally investigate or prosecute any alcohol or drug abuse patient.[facility] HospitalIn the event this information is protected by the Federal Confidentiality of Alcohol and Drug Abuse Patient Records regulations: The Federal rules restrict any use of the information to criminally investigate or prosecute any alcohol or drug abuse patient.[facility] HospitalIn the event this information is protected by the Federal Confidentiality of Alcohol and Drug Abuse Patient Records regulations: The Federal rules restrict any use of the information to criminally investigate or prosecute any alcohol or drug abuse patient.[facility] HospitalIn the event this information is protected by the Federal Confidentiality of Alcohol and Drug Abuse Patient Records regulations: The Federal rules restrict any use of the information to criminally investigate or prosecute any alcohol or drug abuse patient.[facility] HospitalIn the event this information is protected by the Federal Confidentiality of Alcohol and Drug Abuse Patient Records regulations: The Federal rules restrict any use of the information to criminally investigate or prosecute any alcohol or drug abuse patient.[facility] HospitalIn the event this information is protected by the Federal Confidentiality of Alcohol and Drug Abuse Patient Records regulations: The Federal rules restrict any use of the information to criminally investigate or prosecute any alcohol or drug abuse patient.[facility] HospitalIn the event this information is protected by the Federal Confidentiality of Alcohol and Drug Abuse Patient Records regulations: The Federal rules restrict any use of the information to criminally investigate or prosecute any alcohol or drug abuse patient.[facility] HospitalIn the event this information is protected by the Federal Confidentiality of Alcohol and Drug Abuse Patient Records regulations: The Federal rules restrict any use of the information to criminally investigate or prosecute any alcohol or drug abuse patient.[facility] HospitalIn the event this information is protected by the Federal Confidentiality of Alcohol and Drug Abuse Patient Records regulations: The Federal rules restrict any use of the information to criminally investigate or prosecute any alcohol or drug abuse patient.[facility] HospitalIn the event this information is protected by the Federal Confidentiality of Alcohol and Drug Abuse Patient Records regulations: The Federal rules restrict any use of the information to criminally investigate or prosecute any alcohol or drug abuse patient.[facility] HospitalIn the event this information is protected by the Federal Confidentiality of Alcohol and Drug Abuse Patient Records regulations: The Federal rules restrict any use of the information to criminally investigate or prosecute any alcohol or drug abuse patient.[facility] HospitalIn the event this information is protected by the Federal Confidentiality of Alcohol and Drug Abuse Patient Records regulations: The Federal rules restrict any use of the information to criminally investigate or prosecute any alcohol or drug abuse patient.[facility] HospitalIn the event this information is protected by the Federal Confidentiality of Alcohol and Drug Abuse Patient Records regulations: The Federal rules restrict any use of the information to criminally investigate or prosecute any alcohol or drug abuse patient.[facility] HospitalIn the event this information is protected by the Federal Confidentiality of Alcohol and Drug Abuse Patient Records regulations: The Federal rules restrict any use of the information to criminally investigate or prosecute any alcohol or drug abuse patient.[facility] HospitalIn the event this information is protected by the Federal Confidentiality of Alcohol and Drug Abuse Patient Records regulations: The Federal rules restrict any use of the information to criminally investigate or prosecute any alcohol or drug abuse patient.[facility] HospitalIn the event this information is protected by the Federal Confidentiality of Alcohol and Drug Abuse Patient Records regulations: The Federal rules restrict any use of the information to criminally investigate or prosecute any alcohol or drug abuse patient.[facility] HospitalIn the event this information is protected by the Federal Confidentiality of Alcohol and Drug Abuse Patient Records regulations: The Federal rules restrict any use of the information to criminally investigate or prosecute any alcohol or drug abuse patient.[facility] HospitalIn the event this information is protected by the Federal Confidentiality of Alcohol and Drug Abuse Patient Records regulations: The Federal rules restrict any use of the information to criminally investigate or prosecute any alcohol or drug abuse patient.[facility] HospitalIn the event this information is protected by the Federal Confidentiality of Alcohol and Drug Abuse Patient Records regulations: The Federal rules restrict any use of the information to criminally investigate or prosecute any alcohol or drug abuse patient.[facility] HospitalIn the event this information is protected by the Federal Confidentiality of Alcohol and Drug Abuse Patient Records regulations: The Federal rules restrict any use of the information to criminally investigate or prosecute any alcohol or drug abuse patient.[facility] HospitalIn the event this information is protected by the Federal Confidentiality of Alcohol and Drug Abuse Patient Records regulations: The Federal rules restrict any use of the information to criminally investigate or prosecute any alcohol or drug abuse patient.[facility] HospitalIn the event this information is protected by the Federal Confidentiality of Alcohol and Drug Abuse Patient Records regulations: The Federal rules restrict any use of the information to criminally investigate or prosecute any alcohol or drug abuse patient.[facility] HospitalIn the event this information is protected by the Federal Confidentiality of Alcohol and Drug Abuse Patient Records regulations: The Federal rules restrict any use of the information to criminally investigate or prosecute any alcohol or drug abuse patient.[facility] HospitalIn the event this information is protected by the Federal Confidentiality of Alcohol and Drug Abuse Patient Records regulations: The Federal rules restrict any use of the information to criminally investigate or prosecute any alcohol or drug abuse patient.[facility] HospitalIn the event this information is protected by the Federal Confidentiality of Alcohol and Drug Abuse Patient Records regulations: The Federal rules restrict any use of the information to criminally investigate or prosecute any alcohol or drug abuse patient.[facility] HospitalIn the event this information is protected by the Federal Confidentiality of Alcohol and Drug Abuse Patient Records regulations: The Federal rules restrict any use of the information to criminally investigate or prosecute any alcohol or drug abuse patient.[facility] HospitalIn the event this information is protected by the Federal Confidentiality of Alcohol and Drug Abuse Patient Records regulations: The Federal rules restrict any use of the information to criminally investigate or prosecute any alcohol or drug abuse patient.[facility] HospitalIn the event this information is protected by the Federal Confidentiality of Alcohol and Drug Abuse Patient Records regulations: The Federal rules restrict any use of the information to criminally investigate or prosecute any alcohol or drug abuse patient.[facility] HospitalIn the event this information is protected by the Federal Confidentiality of Alcohol and Drug Abuse Patient Records regulations: The Federal rules restrict any use of the information to criminally investigate or prosecute any alcohol or drug abuse patient.[facility] HospitalIn the event this information is protected by the Federal Confidentiality of Alcohol and Drug Abuse Patient Records regulations: The Federal rules restrict any use of the information to criminally investigate or prosecute any alcohol or drug abuse patient.[facility] HospitalIn the event this information is protected by the Federal Confidentiality of Alcohol and Drug Abuse Patient Records regulations: The Federal rules restrict any use of the information to criminally investigate or prosecute any alcohol or drug abuse patient.[facility] HospitalIn the event this information is protected by the Federal Confidentiality of Alcohol and Drug Abuse Patient Records regulations: The Federal rules restrict any use of the information to criminally investigate or prosecute any alcohol or drug abuse patient.[facility] HospitalIn the event this information is protected by the Federal Confidentiality of Alcohol and Drug Abuse Patient Records regulations: The Federal rules restrict any use of the information to criminally investigate or prosecute any alcohol or drug abuse patient.[facility] HospitalIn the event this information is protected by the Federal Confidentiality of Alcohol and Drug Abuse Patient Records regulations: The Federal rules restrict any use of the information to criminally investigate or prosecute any alcohol or drug abuse patient.[facility] HospitalIn the event this information is protected by the Federal Confidentiality of Alcohol and Drug Abuse Patient Records regulations: The Federal rules restrict any use of the information to criminally investigate or prosecute any alcohol or drug abuse patient.[facility] HospitalIn the event this information is protected by the Federal Confidentiality of Alcohol and Drug Abuse Patient Records regulations: The Federal rules restrict any use of the information to criminally investigate or prosecute any alcohol or drug abuse patient.[facility] HospitalIn the event this information is protected by the Federal Confidentiality of Alcohol and Drug Abuse Patient Records regulations: The Federal rules restrict any use of the information to criminally investigate or prosecute any alcohol or drug abuse patient.[facility] HospitalIn the event this information is protected by the Federal Confidentiality of Alcohol and Drug Abuse Patient Records regulations: The Federal rules restrict any use of the information to criminally investigate or prosecute any alcohol or drug abuse patient.[facility] HospitalIn the event this information is protected by the Federal Confidentiality of Alcohol and Drug Abuse Patient Records regulations: The Federal rules restrict any use of the information to criminally investigate or prosecute any alcohol or drug abuse patient.[facility] HospitalIn the event this information is protected by the Federal Confidentiality of Alcohol and Drug Abuse Patient Records regulations: The Federal rules restrict any use of the information to criminally investigate or prosecute any alcohol or drug abuse patient.[facility] HospitalIn the event this information is protected by the Federal Confidentiality of Alcohol and Drug Abuse Patient Records regulations: The Federal rules restrict any use of the information to criminally investigate or prosecute any alcohol or drug abuse patient.[facility] HospitalIn the event this information is protected by the Federal Confidentiality of Alcohol and Drug Abuse Patient Records regulations: The Federal rules restrict any use of the information to criminally investigate or prosecute any alcohol or drug abuse patient.[facility] HospitalIn the event this information is protected by the Federal Confidentiality of Alcohol and Drug Abuse Patient Records regulations: The Federal rules restrict any use of the information to criminally investigate or prosecute any alcohol or drug abuse patient.[facility] HospitalIn the event this information is protected by the Federal Confidentiality of Alcohol and Drug Abuse Patient Records regulations: The Federal rules restrict any use of the information to criminally investigate or prosecute any alcohol or drug abuse patient.[facility] HospitalIn the event this information is protected by the Federal Confidentiality of Alcohol and Drug Abuse Patient Records regulations: The Federal rules restrict any use of the information to criminally investigate or prosecute any alcohol or drug abuse patient.[facility] HospitalIn the event this information is protected by the Federal Confidentiality of Alcohol and Drug Abuse Patient Records regulations: The Federal rules restrict any use of the information to criminally investigate or prosecute any alcohol or drug abuse patient.[facility] HospitalIn the event this information is protected by the Federal Confidentiality of Alcohol and Drug Abuse Patient Records regulations: The Federal rules restrict any use of the information to criminally investigate or prosecute any alcohol or drug abuse patient.[facility] HospitalIn the event this information is protected by the Federal Confidentiality of Alcohol and Drug Abuse Patient Records regulations: The Federal rules restrict any use of the information to criminally investigate or prosecute any alcohol or drug abuse patient.[facility]In the event this information is protected by the Federal Confidentiality of Alcohol and Drug Abuse Patient Records regulations: The Federal rules restrict any use of the information to criminally investigate or prosecute any alcohol or drug abuse patient.[facility] HospitalIn the event this information is protected by the Federal Confidentiality of Alcohol and Drug Abuse Patient Records regulations: The Federal rules restrict any use of the information to criminally investigate or prosecute any alcohol or drug abuse patient.[facility] HospitalIn the event this information is protected by the Federal Confidentiality of Alcohol and Drug Abuse Patient Records regulations: The Federal rules restrict any use of the information to criminally investigate or prosecute any alcohol or drug abuse patient.[facility] HospitalIn the event this information is protected by the Federal Confidentiality of Alcohol and Drug Abuse Patient Records regulations: The Federal rules restrict any use of the information to criminally investigate or prosecute any alcohol or drug abuse patient.[facility] HospitalIn the event this information is protected by the Federal Confidentiality of Alcohol and Drug Abuse Patient Records regulations: The Federal rules restrict any use of the information to criminally investigate or prosecute any alcohol or drug abuse patient.[facility] HospitalIn the event this information is protected by the Federal Confidentiality of Alcohol and Drug Abuse Patient Records regulations: The Federal rules restrict any use of the information to criminally investigate or prosecute any alcohol or drug abuse patient.[facility] HospitalIn the event this information is protected by the Federal Confidentiality of Alcohol and Drug Abuse Patient Records regulations: The Federal rules restrict any use of the information to criminally investigate or prosecute any alcohol or drug abuse patient.[facility] HospitalIn the event this information is protected by the Federal Confidentiality of Alcohol and Drug Abuse Patient Records regulations: The Federal rules restrict any use of the information to criminally investigate or prosecute any alcohol or drug abuse patient.[facility] HospitalIn the event this information is protected by the Federal Confidentiality of Alcohol and Drug Abuse Patient Records regulations: The Federal rules restrict any use of the information to criminally investigate or prosecute any alcohol or drug abuse patient.[facility] HospitalIn the event this information is protected by the Federal Confidentiality of Alcohol and Drug Abuse Patient Records regulations: The Federal rules restrict any use of the information to criminally investigate or prosecute any alcohol or drug abuse patient.[facility] HospitalIn the event this information is protected by the Federal Confidentiality of Alcohol and Drug Abuse Patient Records regulations: The Federal rules restrict any use of the information to criminally investigate or prosecute any alcohol or drug abuse patient.[facility] HospitalIn the event this information is protected by the Federal Confidentiality of Alcohol and Drug Abuse Patient Records regulations: The Federal rules restrict any use of the information to criminally investigate or prosecute any alcohol or drug abuse patient.[facility] HospitalIn the event this information is protected by the Federal Confidentiality of Alcohol and Drug Abuse Patient Records regulations: The Federal rules restrict any use of the information to criminally investigate or prosecute any alcohol or drug abuse patient.[facility] HospitalIn the event this information is protected by the Federal Confidentiality of Alcohol and Drug Abuse Patient Records regulations: The Federal rules restrict any use of the information to criminally investigate or prosecute any alcohol or drug abuse patient.[facility] HospitalIn the event this information is protected by the Federal Confidentiality of Alcohol and Drug Abuse Patient Records regulations: The Federal rules restrict any use of the information to criminally investigate or prosecute any alcohol or drug abuse patient.[facility] HospitalIn the event this information is protected by the Federal Confidentiality of Alcohol and Drug Abuse Patient Records regulations: The Federal rules restrict any use of the information to criminally investigate or prosecute any alcohol or drug abuse patient.[facility] HospitalIn the event this information is protected by the Federal Confidentiality of Alcohol and Drug Abuse Patient Records regulations: The Federal rules restrict any use of the information to criminally investigate or prosecute any alcohol or drug abuse patient.[facility] HospitalIn the event this information is protected by the Federal Confidentiality of Alcohol and Drug Abuse Patient Records regulations: The Federal rules restrict any use of the information to criminally investigate or prosecute any alcohol or drug abuse patient.[facility] HospitalIn the event this information is protected by the Federal Confidentiality of Alcohol and Drug Abuse Patient Records regulations: The Federal rules restrict any use of the information to criminally investigate or prosecute any alcohol or drug abuse patient.[facility] HospitalIn the event this information is protected by the Federal Confidentiality of Alcohol and Drug Abuse Patient Records regulations: The Federal rules restrict any use of the information to criminally investigate or prosecute any alcohol or drug abuse patient.[facility] HospitalIn the event this information is protected by the Federal Confidentiality of Alcohol and Drug Abuse Patient Records regulations: The Federal rules restrict any use of the information to criminally investigate or prosecute any alcohol or drug abuse patient.[facility] HospitalIn the event this information is protected by the Federal Confidentiality of Alcohol and Drug Abuse Patient Records regulations: The Federal rules restrict any use of the information to criminally investigate or prosecute any alcohol or drug abuse patient.[facility] HospitalIn the event this information is protected by the Federal Confidentiality of Alcohol and Drug Abuse Patient Records regulations: The Federal rules restrict any use of the information to criminally investigate or prosecute any alcohol or drug abuse patient.[facility] HospitalIn the event this information is protected by the Federal Confidentiality of Alcohol and Drug Abuse Patient Records regulations: The Federal rules restrict any use of the information to criminally investigate or prosecute any alcohol or drug abuse patient.[facility] Reason for Visit (unrecogniz ed section and [...] Procedures CONSULT TO WOMEN'S BEHAVIORAL HEALTH OFFICE/OUTPATIENT [facility] 60 MINUTES Gino Valero APRN.FRANDY [address] [place] [address] Referral ID Status Reason Start Date Expiration Date V isits Requested Visits Authorized [id number] Closed PCP Requested Referral 04/23/2023 04/22/2024 1 1 Reason Comments Establish Care low back pain Wrecked her dirt charlene e on May 14 she went to the ER in [place] on 05/19/23 Location: tailbone Pain scale: 7Description: sharp painTreatment: heat, tylenol, motrin, and muscle relaxor Reason Comments Med Change Request Reason Comments Anxiety Depression Follow Up Specialty Diagnoses / Procedures Referred By Tone musa Referred To Contact Diagnoses Symptomatic cholelithiasis Symptomatic cholelithiasis [K80.20] Procedures [place] LAPAROSCOPY SURG CHOLECYSTECTOMY Laparoscopic cholecystectomy, possible open Alla Llanes MD [address] [facility], [address] [place] [address] [facility] [place] [address] [place] [phone] Referral ID Status Reason Start Date Expiration Date Visits Re quested Visits Authorized [id number] 1 1 Reason Comments Nausea Amb to [...] no coded services entered Bora Do MD [address] [place] [address] [phone] Referral ID Status Reason Start Date Expiration Date Visits Re quested Visits Authorized [id number] 1 1 Reason Comments Shortness of Breath [...] Tone t Referred To Contact Cardiology Saturnino Velázquez DO [address] [place] [address] Department [place] [address] FernandesNorbert Mallory MD [address] [facility], [place] [address] [place] [address] Referral ID Status Reason Start Date Expiration Date Visits Requested Visits Authorized [id number] Authorized Specialty Services Required 06/21/2023 06/20/2024 1 1 Reason Onset Date Comments Follow Up Was at [facility] Insertion Of IUD 06/26/2023 Specialty Diagnoses / Procedures Referred By Contac t Referred To Contact [facility] Diagnoses Abnormal uterine bleeding (AUB) Encounter for removal of intrauterine contraceptive device Encounter for insertion of intrauterine contraceptive device Procedures INSERT INTRAUTERINE DEVICE LEVONORGESTREL IU 52MG 5 YR INSERT INTRAUTERINE DEVICE REMOVE INTRAUTERINE DEVICE Prabhu Ortez MD [address] [place] [address] [facility] [address] [place] [address] Referral ID Status Reason Start Date Expiration Date Visits Requested Visits Authorized [id number] Authorized Auto-Generat ed Referral 06/26/2023 02/10/2024 2 2 Reason Comments ER F/U Gallbladder removed. Has blood clot in lung now Reason Comments Pulmonary Embolism Specialty Diagnoses / Procedures Referred By Contac t Referred To Contact Hematology and Oncology Saturnino Velázquez, DO [address] [place] [address] Department [place] [address] Miki Jaramillo MD [address] [facility] H[facility] [place] [address] Referral ID Status Reason Start Date Expiration Date Visits Requested Visits Authorized [id number] Authorized Specialty Services Required 06/21/2023 06/20/2024 1 1 Specialty Diagnoses / Procedures Referred By Contac t Referred To Contact Cardiology Diagnoses Single subsegmental pulmonary embolism without acute cor pulmonale (Multi) Procedures Vascular US Lower Extremity [place] B[place] [address] [facility] [address], [address] [place] [address] Referral ID Status Reason Start Date Expiration Date Visits Requested Visits Authorized [id number] Authorized Perform Procedure 06/25/2023 06/24/2024 1 1 Specialty Diagnoses / Procedures Referred By Tone musa Referred To Contact Cardiology Diagnoses Palpitations Procedures Holter Or Event [place] [address] [facility] [address], [place] [phone] Referral ID Status Reason Start Date Expiration Date V isits Requested Visits Authorized [id number] Authorized 06/25/2023 06/24/2024 1 1 Reason Comments [...] Referred By Tone musa Referred To Contact [facility] Diagnoses Encounter for IUD removal Encounter for insertion of intrauterine contraceptive device Procedures REMOVE INTRAUTERINE DEVICE REMOVE INTRAUTERINE DEVICE INSERT INTRAUTERINE DEVICE LEVONORGESTREL IU 52MG 5 YR Mary Jo Chance MD [address] [place] [address] [facility] [address] [place] [address] Referral ID Status Reason Start Date Expiration Date Visits Requested Visits Authorized [id number] Authorized Auto-Generat ed Referral 08/20/2023 02/10/2024 2 [...] diarrhea Procedures CONSULT TO GENERAL SURGERY OFFICE/OUTPATIENT [facility] 60 MINUTES Mary Jo Chance MD [address] [place] [address] Referral ID Status Reason Start Date Expiration Date V isits Requested Visits Authorized [id number] Closed PCP Requested Referral 09/23/2023 2024 1 1 Reason Comments Diarrhea Specialty Diagnoses / Procedures Referred By Contac t Referred To Contact Gastroenterology Diagnoses Functional diarrhea Status post laparoscopic cholecystectomy Procedures CONSULT TO GASTROENTEROLOGY OFFICE/OUTPATIENT [facility] 60 MINUTES Conor Duarte MD [address] [place] [address] Referral ID Status Reason Start Date Expiration Date V isits Requested Visits Authorized [id number] Closed PCP Requested Referral 09/29/2023 09/28/2024 1 1 Reason Comments Problem Visit Reason Comments 3 month f/u Reason Comments Wellness Reason Comments Establish Care Palpitations Specialty Diagnoses / Procedures Referred By Contac t Referred To Contact Diagnoses Pulmonary embolism (Multi) SVT (supraventricular tachycardia) ([facility]) Palpitations Procedures ECG 12 lead (Clinic Performed) Ramiro Hugo MD [address], [place] [address] [place] [address] Referral ID Status Reason Start Date Expiration Date V isits Requested Visits Authorized [id number] Authorized 08/21/2023 08/20/2024 1 1 Reason Comments Follow-up Ablation Specialty Diagnoses / Procedures Referred By Contac t Referred To Contact Diagnoses Atrial fibrillation, unspecified type (Multi) Procedures ECG 12 lead (Clinic Performed) Ramiro Hugo MD [address], [place] [place] [address] Phone: tel: fax: Referral ID Status Reason Start Date Expiration Date V isits Requested Visits Authorized [id number] Authorized 01/27/2024 01/26/2025 1 1 Reason Comments Abdominal Pain Upper abd pain with n/v/d x 3 days I feel dehydrated Reason Onset Date Comments ER F/U 02/18/2024 [facility] 02/18/2024 Reason Comments Initial 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 Reason Comments US Specialty Diagnoses / Procedures Referred By Contac t Referred To Contact [facility] Diagnoses with uncertain dates, antepartum Procedures OBSTETRIC ULTRASOUND WHI US PREG UTERUS AFTER 1ST TRIMEST GESTATION Jaquelin Hi APRN.CNLilly [address] [place] [address] Phone: tel: fax: [address] [address] Referral ID Status Reason Start Date Expiration Date V isits Requested Visits Authorized [id number] Closed Auto-Generate d Referral 03/09/2024 03/09/2025 1 1 Reason Onset Date Comments Care 04/07/2024 Reason Onset Date Comments Care 05/04/2024 Reason Comments Breast Pump RX Specialty Diagnoses / Procedures Referred By Contac t Referred To Contact [facility] Diagnoses with uncertain dates, antepartum (HCC) Procedures OBSTETRIC ULTRASOUND WHI US PREG UTERUS AFTER 1ST TRIMEST GESTATION Jaquelin Hi APRN.CN [address] [place] [address] Phone: tel: fax: [address] [address] Referral ID Status Reason Start Date Expiration Date V isits Requested Visits Authorized [id number] Closed Auto-Generate d Referral 03/09/2024 03/09/2025 1 1 Reason Onset Date Comments Care 06/01/2024 Reason Onset Date Comments Care 07/27/2024 Reason Comments 6 month f/u Specialty Diagnoses / Procedures Referred By Contac t Referred To Contact Diagnoses SVT (supraventricular tachycardia) Procedures ECG 12 lead (Clinic Performed) Ramiro Hugo MD [address] [facility] 3, [address] [address] Phone: tel: fax: Referral ID Status Reason Start Date Expiration Date V isits Requested Visits Authorized [id number] Authorized 08/03/2024 08/03/2025 1 1 Reason Comments Anemia Specialty Diagnoses / Procedures Referred By Contac t Referred To Contact Referral ID Status Reason Start Date Expiration Date V isits Requested Visits Authorized [id number] New Request 08/03/2024 10/02/2024 1 1 Reason Onset Date Comments Care 08/10/2024 Reason Comments Infusion Specialty Diagnoses / Procedures Referred By Contac t Referred To Contact Diagnoses Maternal iron deficiency anemia complicating , third trimester (HCC) Nayely Gil PA-C [address] [place] [address] Phone: tel: fax: [facility] [address] [place] [address] Phone: tel: fax: Referral ID Status Reason Start Date Expiration Date V isits Requested Visits Authorized [id number] Authorized 08/06/2024 02/09/2025 1 99 Referral ID Status Reason Start Date Expiration Date V isits Requested Visits Authorized [id number] Authorized 08/06/2024 02/09/2025 1 100 Reason Onset Date Comments Care 08/24/2024 Specialty Diagnoses / Procedures Referred By Contpari t Referred To Contact [facility] Diagnoses History of shoulder dystocia in prior Procedures OBSTETRIC ULTRASOUND WHI US PREG UTERUS AFTER 1ST TRIMEST GESTATION Prabhu Ortez MD [address] [place] [address] Phone: tel: fax: [facility] [address] [place] [address] Referral ID Status Reason Start Date Expiration Date V isits Requested Visits Authorized [id number] Closed Auto-Generate d Referral 08/24/2024 08/24/2025 1 1 Reason Onset Date Comments Care 09/07/2024 Reason Onset Date Comments Care 09/08/2024 Reason Comments Care Reason Comments Contractions Reason Comments Records Request from [facility] Reason Onset Date Comments Care 2024 Reason Onset Date Comments Care 09/28/2024 Reason Onset Date Comments Population Health Navigation Outreach 10/05/2024 Ob/peds Care Teams (unrecognized sec tion and content) Team Status: Active Member Role Status Dates Dr. Renato Edouard MD Family Provider Active [facility] Primary Care Provider A ctive Team Status: Inactive Member Role Status Dates [facility] Primary Care Provider A ctive Dr. [...] Dr. Neelima Dahl MD Attending Provider Active Medical Observer Relationship Specialty Start Date End Date Neelima Dahl MD [address] [address] PCP - General BOND TRADER 04/30/22 Medical Observer Relationship Specialty Start Date End Date Neelima Dahl MD [address] [place] [address] PCP - General BOND TRADER 04/30/22 Medical Observer Relationship Specialty Start Date End Date Neelima Dahl MD [address] [place] [address] PCP - General BOND TRADER 04/30/22 Medical Observer Relationship Specialty Start Date End Date Neelima aDhl MD [address] [address] PCP - General BOND TRADER 04/30/22 Medical Observer Relationship Specialty Start Date End Date Neelima Dahl MD [address] [address] PCP - General BOND TRADER 04/30/22 Medical Observer Relationship Specialty Start Date End Date Neelima Dahl MD [address] [address] PCP - General BOND TRADER 04/30/22 Medical Observer Relationship Specialty Start Date End Date Neelima Dahl MD [address] [place] [address] PCP - General BOND TRADER 04/30/22 Medical Observer Relationship Specialty Start Date End Date Neelima Dahl MD [address] [place] [address] PCP - General Progressive Care Unit Registered Nurse 04/30/22 Medical Observer Relationship Specialty Start Date End Date Neelima Dahl MD [address] [place] [address] PCP - General Progressive Care Unit Registered Nurse 04/30/22 Medical Observer Relationship Specialty Start Date End Date Neelima Dahl MD [address] [place] [address] PCP - General Progressive Care Unit Registered Nurse 04/30/22 Medical Observer Relationship Specialty Start Date End Date Jacob Mackenzie DO [address] [place] [address] PCP - General Family Medicine 05/29/23 Medical Observer Relationship Specialty Start Date End Date Jacob Mackenzie DO [address] [place] [place] [address] PCP - General Family Medicine 05/29/23 Medical Observer Relationship Specialty Start Date End Date Jacob Mackenzie DO [address] [place] [address] PCP - General Family Medicine 05/29/23 Medical Observer Relationship Specialty Start Date End Date Rachell Amador, BOND TRADER-BLOOD TESTER FOWL [address] [place] [place] [address] PCP - General Family Medicine 06/18/23 Medical Observer Relationship Specialty Start Date End Date Gueroloco Rachell Yoana BOND TRADER-[facility] [address] [facility] [place] [address] PCP - General Family Medicine 06/18/23 Medical Observer Relationship Specialty Start Date End Date Tatum Rachell Yoana BOND TRADER-[facility] [address] [facility] [place] [address] PCP - General Family Medicine 06/18/23 Medical Observer Relationship Specialty Start Date End Date Rachell Amador BOND TRADER-[facility] [address] [facility] [place] [address] PCP - General Family Medicine 06/18/23 Team Status: Active Member Role Status Dates Dr. Renato Edouard MD Family Provider Active Rachell Amador BIOMETRICS SPECIALIST, BIOMETRICS SPECIALIST-C Primary Care Provider Active Team Status: Inactive Member Role Status Dates Rachell Amador BIOMETRICS SPECIALIST, BIOMETRICS SPECIALIST-C Primary Care Provider Active Dr. Roger Osman , Emergency Provider Active Medical Observer Relationship Specialty Start Date End Date Rachell Amador BOND TRADER.BLOOD TESTER FOWL [address] [place] [address] PCP - General Family Medicine 06/22/23 Medical Observer Relationship Specialty Start Date End Date Tatum Rachell Lees BOND TRADER-BLOOD TESTER FOWL [address] [place] [address] PCP - General Family Medicine 06/18/23 Saturnino Velázquez, [address] [place] [address] Department [place] [address] Consulting Physician Emergency Medicine 06/24/23 Medical Observer Relationship Specialty Start Date End Date Rachell Amador APRN.BLOOD TESTER FOWL [address] [facility] [place] [id number] PCP - General Family Medicine 06/22/23 Medical Observer Relationship Specialty Start Date End Date Rachell Amador BOND TRADER.BLOOD TESTER FOWL [address] [place] [address] PCP - General Family Medicine 06/22/23 Medical Observer Relationship Specialty Start Date End Date Rachell Amador BOND TRADER-BLOOD TESTER FOWL [address] [place] [place] [address] PCP - General Family Medicine 06/18/23 Saturnino Velázquez DO [address] [place] [address] Department [place] [address] Consulting Physician Emergency Medicine 06/24/23 Medical Observer Relationship Specialty Start Date End Date Rachell Amador BOND TRADER.BLOOD TESTER FOWL [address] [place] [place] [address] PCP - General Family Medicine 06/22/23 Medical Observer Relationship Specialty Start Date End Date Rachell Amador APRN.BLOOD TESTER FOWL [address] [place] [address] PCP - General Family Medicine 06/22/23 Medical Observer Relationship Specialty Start Date End Date Rachell Amador BOND TRADER.BLOOD TESTER FOWL [address] [place] [address] PCP - General Family Medicine 06/22/23 Medical Observer Relationship Specialty Start Date End Date Rachell Amador BOND TRADER-BLOOD TESTER FOWL [address] [place] [address] PCP - General Family Medicine 06/18/23 Saturnino Velázquez, DO [address] [place] [address] [place] [address] Consulting Physician Emergency Medicine 06/24/23 Miki Jaramillo MD [address] [place] [address] Consulting Physician Hematology and Oncology 07/02/23 Medical Observer Relationship Specialty Start Date End Date Rachell Amador BOND TRADER-BLOOD TESTER FOWL [address] [place] [address] PCP - General Family Medicine 06/18/23 Saturnino Velázquez, DO [address] [place] [address] Consulting Physician Emergency Medicine 06/24/23 Miki Jaramillo MD [address] [place] [address] Consulting Physician Hematology and Oncology 07/02/23 Medical Observer Relationship Specialty Start Date End Date Rachell Amador BOND TRADER-BLOOD TESTER FOWL [address] [place] [address] PCP - General Family Medicine 06/18/23 Saturnino Velázquez, DO [address] [place] [address] [place] [address] Consulting Physician Emergency Medicine 06/24/23 Miki Jaramillo MD [address] [place] [address] Consulting Physician Hematology and Oncology 07/02/23 Medical Observer Relationship Specialty Start Date End Date Rachell Amador, BOND TRADER-BLOOD TESTER FOWL [address] [place] [address] PCP - General Family Medicine 06/18/23 Saturnino Velázquez DO [address] [place] [address] Department [place] [address] Consulting Physician Emergency Medicine 06/24/23 Miki Jaramillo MD [address] [place] [address] Consulting Physician Hematology and Oncology 07/02/23 Medical Observer Relationship Specialty Start Date End Date Rachell Amador, BOND TRADER.BLOOD TESTER FOWL [address] [place] [address] PCP - General Family Medicine 06/22/23 Medical Observer Relationship Specialty Start Date End Date Rachell Amador, BOND TRADER.BLOOD TESTER FOWL [address] [facility] [place] [address] PCP - General Family Medicine 06/22/23 Medical Observer Relationship Specialty Start Date End Date Rachell Amador, BOND TRADER.BLOOD TESTER FOWL [address] [place] [address] PCP - General Family Medicine 06/22/23 Medical Observer Relationship Specialty Start Date End Date Rachell Amador, BOND TRADER.BLOOD TESTER FOWL [address] [place] [address] PCP - General Family Medicine 06/22/23 Medical Observer Relationship Specialty Start Date End Date Rachell Amador, BOND TRADER.BLOOD TESTER FOWL [address] [place] [address] PCP - General Family Medicine 06/22/23 Medical Observer Relationship Specialty Start Date End Date Rachell Amador, BOND TRADER.BLOOD TESTER FOWL [address] [place] [address] PCP - General Family Medicine 06/22/23 Medical Observer Relationship Specialty Start Date End Date Rachell Amador, BOND TRADER.BLOOD TESTER FOWL [address] [place] [address] PCP - General Family Medicine 06/22/23 Medical Observer Relationship Specialty Start Date End Date Rachell Amador, BOND TRADER.BLOOD TESTER FOWL [address] [place] [address] PCP - General Family Medicine 06/22/23 Medical Observer Relationship Specialty Start Date End Date Rachell Amador, BOND TRADER.BLOOD TESTER FOWL [address] [place] [address] PCP - General Family Medicine 06/22/23 Medical Observer Relationship Specialty Start Date End Date Rachell Amador, BOND TRADER.BLOOD TESTER FOWL [address] [place] [address] PCP - General Family Medicine 06/22/23 Medical Observer Relationship Specialty Start Date End Date Rachell Amador, BOND TRADER.BLOOD TESTER FOWL [address] [place] [address] PCP - General Family Medicine 06/22/23 Medical Observer Relationship Specialty Start Date End Date Rachell Amador, BOND TRADER.BLOOD TESTER FOWL [address] [place] [address] PCP - General Family Medicine 06/22/23 Medical Observer Relationship Specialty Start Date End Date Rachell Amador, BOND TRADER.BLOOD TESTER FOWL [address] [place] [address] PCP - General Family Medicine 06/22/23 Medical Observer Relationship Specialty Start Date End Date Rachell Amador, BOND TRADER.BLOOD TESTER FOWL [address] [place] [address] PCP - General Family Medicine 06/22/23 Medical Observer Relationship Specialty Start Date End Date Rachell Amador, BOND TRADER.BLOOD TESTER FOWL [address] [place] [address] PCP - General Family Medicine 06/22/23 Medical Observer Relationship Specialty Start Date End Date Rachell Amador, BOND TRADER.BLOOD TESTER FOWL [address] [place] [address] PCP - General Family Medicine 06/22/23 Medical Observer Relationship Specialty Start Date End Date Rachell Amador, BOND TRADER.BLOOD TESTER FOWL [address] [place] [address] PCP - General Family Medicine 06/22/23 Medical Observer Relationship Specialty Start Date End Date Rachell Amador, BOND TRADER.BLOOD TESTER FOWL [address] [place] [address] PCP - General Family Medicine 06/22/23 Medical Observer Relationship Specialty Start Date End Date Rachell Amador, BOND TRADER.BLOOD TESTER FOWL [address] [place] [address] PCP - General Family Medicine 06/22/23 Medical Observer Relationship Specialty Start Date End Date Rachell Amador APRN.BLOOD TESTER FOWL [address] [place] [address] PCP - General Family Medicine 06/22/23 Medical Observer Relationship Specialty Start Date End Date Rachell Amador APRN.BLOOD TESTER FOWL [address] [place] [address] PCP - General Family Medicine 06/22/23 Medical Observer Relationship Specialty Start Date End Date Rachell Amador APRN-BLOOD TESTER FOWL [address] [facility], [place] [address] PCP - General Family Medicine 06/18/23 Saturnino Velázquez DO [address] [place] [address] Department [place] [address] Consulting Physician Emergency Medicine 06/24/23 Miki Jaramillo MD [facility] [address] [place] [address] Consulting Physician Hematology and Oncology 07/02/23 Medical Observer Relationship Specialty Start Date End Date Rachell Amador APRN.BLOOD TESTER FOWL [address] [place] [address] PCP - General Family Medicine 06/22/23 Medical Observer Relationship Specialty Start Date End Date Rachell Amador APRN-BLOOD TESTER FOWL [address] [place] [id number] PCP - General Family Medicine 06/18/23 Saturnino Velázquez, DO [address] [place] [address] Emergency Medicine [place] [id number] Consulting Physician Emergency Medicine 06/24/23 Miki Jaramillo MD [address] [place] [address] Consulting Physician Hematology and Oncology 07/02/23 Medical Observer Relationship Specialty Start Date End Date Rachell Amador, BOND TRADER-BLOOD TESTER [address] [place] [address] PCP - General Family Medicine 06/18/23 Saturnino Velázquez, DO [address] [place] [address] [place] [address] Consulting Physician Emergency Medicine 06/24/23 Miki Jaramillo MD [address] [place] [address] Consulting Physician Hematology and Oncology 07/02/23 Medical Observer Relationship Specialty Start Date End Date Rachell Amador BOND TRADER-BLOOD TESTER FOWL [address] [place] [address] PCP - General Family Medicine 06/18/23 Saturnino Velázquez, DO [address] [place] [address] [place] [address] Consulting Physician Emergency Medicine 06/24/23 Miki Jaramillo MD [address] [place] [address] Consulting Physician Hematology and Oncology 07/02/23 Ramiro Hugo MD [address] [place] [address] Consulting Physician Cardiology 01/27/24 Medical Observer Relationship Specialty Start Date End Date Rachell Amador, BOND TRADER-BLOOD TESTER FOWL [address] [place] [address] PCP - General Family Medicine 06/18/23 Saturnino Velázquez DO [address] [place] [address] Department [place] [address] Consulting Physician Emergency Medicine 06/24/23 Miki Jaramillo MD [address] [place] [address] [facility] [address] [place] [address] Consulting Physician Hematology and Oncology 07/02/23 Ramiro Hugo MD [address] [place] [address] Consulting Physician Cardiology 01/27/24 Medical Observer Relationship Specialty Start Date End Date Rachell Amador, BOND TRADER.BLOOD TESTER FOWL [address] [place] [address] PCP - General Family Medicine 06/22/23 Medical Observer Relationship Specialty Start Date End Date Rachell Amador, BOND TRADER.BLOOD TESTER FOWL [address] [place] [address] PCP - General Family Medicine 06/22/23 Medical Observer Relationship Specialty Start Date End Date Rachell Amador, BOND TRADER.BLOOD TESTER FOWL [address] [place] [address] PCP - General Family Medicine 06/22/23 Medical Observer Relationship Specialty Start Date End Date Rachell Amador, BOND TRADER.BLOOD TESTER FOWL [address] [place] [address] PCP - General Family Medicine 06/22/23 Medical Observer Relationship Specialty Start Date End Date Rachell Amador, BOND TRADER.BLOOD TESTER FOWL [address] [place] [address] PCP - General Family Medicine 06/22/23 Medical Observer Relationship Specialty Start Date End Date Rachell Amador, BOND TRADER.BLOOD TESTER FOWL [address] [place] [address] PCP - General Family Medicine 06/22/23 Medical Observer Relationship Specialty Start Date End Date Rachell Amaodr, BOND TRADER.BLOOD TESTER FOWL [address] [place] [address] PCP - General Family Medicine 06/22/23 Medical Observer Relationship Specialty Start Date End Date Rachell Amador, BOND TRADER.BLOOD TESTER FOWL [address] [place] [address] PCP - General Family Medicine 06/22/23 Medical Observer Relationship Specialty Start Date End Date Rachell Amador, BOND TRADER.BLOOD TESTER FOWL [address] [place] [address] PCP - General Family Medicine 06/22/23 Medical Observer Relationship Specialty Start Date End Date Rachell Amador, BOND TRADER.BLOOD TESTER FOWL [address] [place] [address] PCP - General Family Medicine 06/22/23 Medical Observer Relationship Specialty Start Date End Date QueRachell adan APRN.BLOOD TESTER FOWL [address] [facility] [place] [id number] PCP - General Family Medicine 06/22/23 Medical Observer Relationship Specialty Start Date End Date Rachell Amador APRN-BLOOD TESTER FOWL [address] [facility] [place] [id number] PCP - General Family Medicine 06/18/23 Saturnino Velázquez DO [address] [place] [address] Department of Emergency Medicine [place], [place] [id number] Consulting Physician Emergency Medicine 06/24/23 Miki Jaramillo MD [address] [place] [address] [facility] [address] [place] [address] Consulting Physician Hematology and Oncology 07/02/23 Ramiro Hugo MD [address] [facility] [address] [place] [address] Consulting Physician Cardiology 01/27/24 Team Status: Inactive Member Role Status Dates Rachell Amador BIOMETRICS SPECIALIST, BIOMETRICS SPECIALIST-C Primary Care Provider Active Start: August 03, 2024 End: August 03, 2024 Dr. Prabhu Ortez MD Attending Provider Active Start: August 03, 2024 End: August 03, 2024 Dr. Prabhu Ortez MD Referring Provider Active Start: August 03, 2024 End: August 03, 2024 Medical Observer Relationship Specialty Start Date End Date Rachell Amador APRN.BLOOD TESTER FOWL [address] [facility] [place] [id number] PCP - General Family Medicine 06/22/23 Medical Observer Relationship Specialty Start Date End Date Rachell Amador APRN.BLOOD TESTER FOWL [address] [place] [place] [address] PCP - General Family Medicine 06/22/23 Medical Observer Relationship Specialty Start Date End Date Rachell Amador, BOND TRADER.BLOOD TESTER FOWL [address] [place] [address] PCP - General Family Medicine 06/22/23 Medical Observer Relationship Specialty Start Date End Date Rachell Amador, BOND TRADER.BLOOD TESTER FOWL [address] [place] [address] PCP - General Family Medicine 06/22/23 Medical Observer Relationship Specialty Start Date End Date Rachell Amador, BOND TRADER.BLOOD TESTER FOWL [address] [place] [address] PCP - General Family Medicine 06/22/23 Medical Observer Relationship Specialty Start Date End Date Rachell Amador, BOND TRADER.BLOOD TESTER FOWL [address] [place] [address] PCP - General Family Medicine 06/22/23 Medical Observer Relationship Specialty Start Date End Date Rachell Amador, BOND TRADER.BLOOD TESTER FOWL [address] [place] [address] PCP - General Family Medicine 06/22/23 Medical Observer Relationship Specialty Start Date End Date Rachell Amador, BOND TRADER.BLOOD TESTER FOWL [address] [place] [address] PCP - General Family Medicine 06/22/23 Medical Observer Relationship Specialty Start Date End Date Rachell Amador, BOND TRADER.BLOOD TESTER FOWL [address] [place] [address] PCP - General Family Medicine 06/22/23 Medical Observer Relationship Specialty Start Date End Date Rachell Amador BOND TRADER.BLOOD TESTER FOWL [address] [place] [address] PCP - General Family Medicine 06/22/23 Team Status: Active Member Role/Relationship Status Dates Rachell Amador BIOMETRICS SPECIALIST, BIOMETRICS SPECIALIST-C Primary Care Provider Active Team Status: Inactive Member Role/Relationship Status Dates Rachell Amador BIOMETRICS SPECIALIST, BIOMETRICS SPECIALIST-C Primary Care Provider Active Start: August 03, 2024 End: August 03, 2024 Dr. Prabhu Ortez MD Attending Provider Active Start: August 03, 2024 End: August 03, 2024 Dr. Prabhu Ortez MD Referring Provider Active Start: August 03, 2024 End: August 03, 2024 Team Status: Inactive Member Role/Relationship Status Dates Rachell Amador BIOMETRICS SPECIALIST, BIOMETRICS SPECIALIST-C Primary Care Provider Active Start: September 07, 2024 End: September 08, 2024 Dr. Yamila Ballard MD Attending Provider Active Start: September 07, 2024 End: September 08, 2024 Medical Observer Relationship Specialty Start Date End Date Rachell Amador, BOND TRADER.BLOOD TESTER FOWL [address] [place] [address] PCP - General Family Medicine 06/22/23 Medical Observer Relationship Specialty Start Date End Date Rachell Amador, BOND TRADER.BLOOD TESTER FOWL [address] [place] [address] PCP - General Family Medicine 06/22/23 Team Status: Inactive Member Role/Relationship Status Dates Rachell Amador BIOMETRICS SPECIALIST, BIOMETRICS SPECIALIST-C Primary Care Provider Active Start: September 09, 2024 End: September 09, 2024 Jaquelin Hi CNM Attending Provider Active St art: September 09, 2024 End: September 09, 2024 Jaquelin Hi CNM Referring Provider Active St art: September 09, 2024 End: September 09, 2024 Medical Observer Relationship Specialty Start Date End Date Rachell Amador, BOND TRADER.BLOOD TESTER FOWL [address] [place], [place] [phone] PCP - General Family Medicine 06/22/23 Team Status: Inactive Member Role/Relationship Status Dates Rachell Amador BIOMETRICS SPECIALIST, BIOMETRICS SPECIALIST-C Primary Care Provider Active Start: September 19, 2024 End: September 19, 2024 Jaquelin Hi CNM Attending Provider Active St art: September 19, 2024 End: September 19, 2024 Medical Observer Relationship Specialty Start Date End Date Rachell Amador, BOND TRADER.BLOOD TESTER FOWL [address] [place], [place] [id number] PCP - General Family Medicine 06/22/23 Medical Observer Relationship Specialty Start Date End Date Rachell Amador, BOND TRADER.BLOOD TESTER FOWL [address] [facility] [place] [address] PCP - General Family Medicine 06/22/23 Medical Observer Relationship Specialty Start Date End Date Rachell Amador, BOND TRADER.BLOOD TESTER FOWL [address] [facility] [place] [address] PCP - General Family Medicine 06/22/23 Medical Observer Relationship Specialty Start Date End Date Rachell Amador, BOND TRADER.BLOOD TESTER FOWL [address] [place] [address] PCP - General Family Medicine 06/22/23 Medical Observer Relationship Specialty Start Date End Date Rachell Amador, BOND TRADER.BLOOD TESTER FOWL [address] [facility] [place] [address] PCP - General Family Medicine 06/22/23 Scheduled [...] mL/hr, Administer over 30 Minutes, Once, On e 06/17/23 at 0900, For 1 dose, Preprocedure, Duplex [...] mg (COMPLETED) 4 mg, intravenous, Once, On Fri06/17/23 at 0900, For 1 dose, Preprocedure, When [...] On Fri06/18/23 at 1715, For 1 dose 1724 (New Bag - Prov ider: Moriah Valente RN)1801 (Stopped - Provider: Moriah Valente RN) Scheduled [...] Kimmy 06/19/23 at 1955, For 1 dose 194 (Given - Provider: Tylor Nolan) metroNIDAZOLE (Flagyl) [...] Thomason RN)1231 (Stopped - Provider: Warren Thomason RN)1930 (Due) morphine injection 4 mg (COMPLETED) 4 mg, intravenous, Once, On Kimmy 06/19/23 at 1700, For 1 dose 1724 (Given - Provider: Marco Lazo RN) morphine injection 4 mg (COMPLETED) 4 mg, intravenous, Once, On Kimmy 06/19/23 at 2030, For 1 dose 2046 (Given - Provider: Marco Lazo RN) ondansetron (Zofran) injection 4 mg (COMPLETED) 4 mg, intravenous, Once, On Kimmy 06/19/23 at 1700, For 1 dose, When administering via IV Push, administer over 3-5 minutes. 172 (Given - Provider: Marco Lazo RN)1939 (Given [...] 1722 (New Bag - Provider: Marco Lazo RN)184 (Stopped - Provider: Marco Lazo RN) Qc-93a-kbdfttcomw (Choletec) injection 6 millicurie (COMPLETED) 6 millicurie, [...] mL, intravenous, Once in imaging, Starting on Fri06/21/23 at 0916, For 1 dose 0917 (Given - Provid er: Agata Dorado) Scheduled Medication Order 06/22/2023 06/23/2023 06/24/2023 iohexol (OMNIPaque) 350 mg iodine/mL solution 68 mL (COMPLETED) 68 mL, intravenous, Once in imaging, Starting on Fri06/24/23 at 2009, For 1 dose 1958 (Given - Provid er: Tylor Nolan) morphine injection 2 mg (COMPLETED) 2 mg, intravenous, Once, On Fri06/24/23 at 2050, For 1 dose 2100 (Given - Provid [...] pain scores based on patient preference? Yes 3139 (Given - Provid er: Severino Braswell RN) [...] (New Bag - Prov ider: Laura Diaz APRN-WELL HEAD PUMPER)1135 (Stopped - Provider: Laura Diaz APRN-JOSE GUADALUPE) [...] Dakota Barajas RN - Comment: KVO 7 colombian sheath RFV)1116 (Stopped - Provider: Jimmy Black RN) heparin PF 1,000 units in sodium chloride 0.9% 500 mL (2 unit/mL) flush infusion (CANCELED) Continuous PRN, Starting on Fri10/03/23 at 0836, Intraprocedure 0836 (New Bag - Prov ider: Dakota Barajas RN - Comment: KVO 8 colombian sheath RFV)1116 (Stopped - Provider: Jimmy Black, RN) hydrALAZINE (Apresoline) injection 10 mg 10 [...] Dakota Barajas RN - Comment: for arrythmia induction)0907 (Rate/Dose Change - Provider: Jimmy Black RN - Comment: for arrythmia induction)0923 (Stopped - Provider: Jimmy Black, RN) labetaloL [...] Dakota Barajas RN - Comment: KVO 7 colombian sheath LFV)0837 (Rate/Dose Change - Provider: Jimmy Black RN - Comment: KVO/medications 7 colombian shearh LFV)1116 (Stopped - Provider: Jimmy Black [...] 650 mg, Oral, ONCE, 1 dose, On Kimmy 09/09/24 at 2115 2115 (Canceled Entry - Provider: System Discharge - Comment: Automatically canceled at discontinue of medication order) betamethasone acetate (CELESTONE) injection 12 mg 12 mg, Intramuscular, EVERY 24 HOURS, 2 doses, First dose on Fri09/09/24 at 2115, Last dose on Fri09/10/24 at 2115 2129 (Given - Provid er: Candy Chou RN) hydrOXYzine pamoate (VISTARIL) capsule 25 mg (COMPLETED) 25 mg, Oral, ONCE, 1 dose, On Kimmy 09/09/24 at 2245 2229 (Given - Provid er: Candy Chou RN) Lactated ringers IV solution 1,000 mL (COMPLETED) 1,000 mL, Intravenous, ONCE, 1 dose, On Kimmy 09/09/24 at 2115 2050 ($$New Bag$$ - Provider: Candy Chou RN)2200 (Stopped - Provider: Candy Chou RN) NIFEdipine (PROCARDIA) capsule 10 mg (COMPLETED) 10 mg, Oral, ONCE, 1 dose, On Kimmy 09/09/24 at 2115 2130 (Given - Provid er: Candy Chou RN) Nitrofurantoin (macrocrystal-monohydrate) (MACROBID) capsule 100 mg (COMPLETED) 100 mg, Oral, ONCE, 1 dose, On Kimmy 09/09/24 at 2245 2229 (Given - Provid er: [...] BE BASED ON THE PRIMARY CLINICAL RECORDS. [place] [facility]. provides no warranty or guarantee of the accuracy or completeness of information in this document.
[2024-10-07 00:54] LABS: Hematocrit 35.3 % (37-47); Hemoglobin 11.3 g/dL (12.0-15.0); Immature Granulocytes Count 0.090 X10^3/uL (0.0-0.0); Mean Corp Hgb Conc 32.0 g/dL (32-36); Mean Corpuscular Volume 87.2 fL (81-99); NRBC Flagged by Analyzer 0 % (0-5); POSITIVE MORPHOLOGY YES; Platelet Count 106 K/mm3 (150-450); RBC Distribution Width CV 23.2 % (11.6-14.6); RBC Distribution Width SD 72.3 fl (35.1-43.9); Red Blood Count 4.05 M/mm3 (4.2-5.4); White Blood Count 7.7 K/mm3 (4.4-11.0)
[2024-10-07 01:00] LABS: Differential Indicated SCAN CRITERIA MET
[2024-10-07] MEDS: Cefazolin 1 GM/5 ML Vial 2 GM IV (01:00)
[2024-10-07 01:26] LABS: AST(SGOT) 27 U/L (<=31); Alanine Aminotransfer ALT/SGPT 19 U/L (<=34); Estimated Creatinine Clearance 132.31 ml/min (50-250); Uric Acid 4.6 mg/dL (2.6-6.0)
--- NOTE | 2024-10-07 01:28 | PCM.HP.OB ---
HPI - General General Date of Admission: 10/07/24 HPI Narrative KEAGAN ALICIA, is a 24 F @ 39.1 weeks who presents c/o contractions. pt was scheduled cs Maternal Data Information LUZ Calculator Estimated Delivery Date Method Current WG Current Estimate 10/13/24 Manual 39w 1d PFSH [facility] Medical History (Updated 09/22/24 @ 14:[address] Yamila Ballard MD) Pulmonary embolism Anxiety depression Depression Home Medications ?Medication ?Instructions ?Recorded ?Last Taken ?Type vit no.95-ferrous 1 tab PO DAILY 11/12/22 10/06/24 History fumarate 28 mg-folic acid 800 mcg tablet () aspirin 81 mg capsule 81 mg PO DAILY 09/08/24 10/06/24 History metoprolol succinate 25 mg 25 mg PO BID SVT 09/08/24 10/06/24 History tablet,extended release 24 hr Allergy/AdvReac Type Severity Reaction Status Date / Time latex AdvReac Mild Itching Verified 10/07/24 00:34 Family History Father Drug abuse Surgical History (Updated 07/02/23 @ 00:03 by Cricket Villarreal) Hx of cholecystectomy History of tonsillectomy and adenoidectomy Social History (Updated 06/24/23 @ 12:[address] Fabián Bob MD) household members: children Smoking Status: Current every day smoker tobacco type: e-cigarettes History Elective abortions Hx Para 1 Spontaneous abortions Hx # Term Pregnancies Ectopic pregnancies Hx # Pregnancies Multiple births # of living children Vital Signs Vital Signs Vital Signs: Weight Weight: 89.981 kg Body Mass Index (BMI) 35.1 Physical Exam Const alert and oriented x3 General Appearance: cooperative HEENT normocephalic GI GI Narrative: Gravid, non tender to palpation. OB / External & Speculum: external exam normal Extremity normal to inspection Skin no rashes or lesions noted Neuro oriented x3 and CN's II-XII intact bilaterally Psych Appearance: grossly normal Labs Labs Labs: Blood Type A NEGATIVE Antibody Screen NEGATIVE Hct 35.3 % (37-47) L Hgb 11.3 g/dL (12.0-15.0) L Syphilis Total Ab Non-reactive VZV IgG Antibody 404 index (Immune >165) Rubella IgG Antibody Reactive (Nonreactive) Hep Bs Antigen Non-Reactive (Nonreactive) Hepatitis C Antibody Non-Reactive (Nonreactive) Hepatitis C Ab (EIA) <0.1 s/co ratio (0.0-0.9) Chlamydia DNA (SHYAM) Negative (Negative) N.gonorrhoeae DNA (SHYAM) Negative (Negative) HIV 1&2 Antibody Non-Reactive (Nonreactive) Glucose 1 Hr 50 gm 93 mg/dL (70-140) Rhogam given: Yes
--- NOTE | 2024-10-07 01:30 | EX.PCM.OBRPT ---
Maternal Data Information LUZ Calculator Estimated Delivery Date Method Current WG Current Estimate 10/13/24 Manual 39w 1d Final LUZ: 09/12/24 Final LUZ Source: US <20 weeks Gestational age: 39 weeks Operative Report (OB) Procedure Details Date of Procedure: 10/07/24 Procedure Start Time: : Time of Delivery: 01:03 Pre-Operative Diagnosis: Desires elective sterilization and Other Other Pre-Operative diagnosis: macrosomia, history of shoulder dystocia, 39 weeks Post-Operative Diagnosis: Same as Pre-operative diagnosis Classification: Stat Type of Anesthesia: General Antibiotic Given: Ancef 2 grams IV x1 Drain: Fermin to straight drain Estimated Blood Loss: 600 Fluids Replaced: 800 Findings Description of surgery: After informed consent was obtained the patient was taken the operating room she was given General anesthesia due to labs not being back. She was then placed in the supine position. She was prepped and draped in the normal sterile fashion. Anesthesia was found to be adequate. At this time a Pfannenstiel skin incision was made with a knife was carried down to the underlying layer of the fascia. The fascial incision was then extended laterally using traction. . Rectus muscles were then in the midline bluntly and peritoneum was entered bluntly. Gentle opposing traction was placed. At this time the vesicouterine peritoneum was identified. Scalpel was used to make a uterine incision in a low transverse fashion. The uterus was then entered bluntly gentle opposing traction was placed to extend this incision. Membranes were ruptured clear. 's head was brought to the uterine incision was delivered atraumatically. Nuchal x 1 loose- reduced prior to delivery. was vigorous at delivery, Cord was clamped and cut was handed to the waiting nursery team. The Placenta was removed from the uterus. The uterus was then removed from the abdominal cavity. The uterus was cleared of all clots and debris using a lap. At this time the uterine incision was reapproximated using #1 Vicryl in a running locked fashion. Hemostasis was appreciated. Posterior cul-de-sac was then cleared of all clots and debris. At this time Babcocks were placed on the fallopian tubes in an avascular area. The LigaSure was used to coagulate and ligate along the mesosalpinx. This was repeated on both sides. Excellent hemostasis appreciated. Uterus was placed back in the abdominal cavity. Gutters were cleared of all clots and debris. Uterine incision was reevaluated and noted to be of excellent hemostasis. At this time the peritoneum was grasped with Kellys reapproximated using #2 Vicryl suture in a running fashion. Fascia was then reapproximated using #1 Vicryl in a running fashion. Subcu layer was irrigated with NS, reapproximated with #2 0 plain gut suture in an interrupted fashion. Subcu layer was closed using 4-0 Monocryl in a subcu fashion. Dry sterile dressing was applied. Instrument lap needle count correct ?2. Anticipated normal postoperative course. Surgical findings: normal tubes and ovaries. Presentation: Vertex Amniotic Membrane Rupture Type: Artificial Amniotic Fluid Description: Clear Placental Delivery Description: Expressed Placenta Disposition: [facility] Specimen collected: Yes Description of specimen(s) removed: bilateral fallopian tubes Cord Vessel Description: 3 Vessels Cord Entanglement: Around neck x 1, loose Nuchal Cord Compression: Without compression Infant A gender: Female (1 minute): 8 (5 minute): 9 Delayed Cord Clamping: No Link Fabric Machine Operator scale clerk: Yes Inspector Agricultural Commodities: Saskia Mayers Tasks completed by study assistant: Opening & closing and Retracting Additional ophthalmic surgical assistant?: No Complications Complications: No
[2024-10-07 01:32] LABS: Syphilis Antibodies Nonreactive (Nonreactive)
[2024-10-07] MEDS: fentaNYL 100 MCG/2 ML Ampul 300 MCG IV (01:38)
[2024-10-07 01:48] LABS: Anisocytosis 2+; Differential Comment SCANNED; Macrocytosis 1+; Microcytosis 1+; Polychromasia RARE; Red Cell Morphology N CHROM NORMAL (NORM C&C)
[2024-10-07] MEDS: Oxytocin 15 Units/NS 250ml 15 UNITS/250 ML IV.SOLN 83 UNITS IV (01:48)
[2024-10-07] MEDS: Ketorolac 30 MG/ML Syringe IV ×4 (02:11→21:03)
[2024-10-07] MEDS: 0.9% Saline Lock 10 ML Syringe IV ×8 (02:11→22:06)
--- OUTSIDE RECORDS SUMMARY | 2024-10-07 03:31 | XMS RPT_ITS | CCD ---
Author Organization [facility] CliniSyfl Care Team Providers Care Car Blocker Name Role Phone Ruben, Mclain Patty Unavailable Unavailable Ruben, Jessica Patty Unavailable [...] Provider Unavailabl e Unavailable [facility] Provider [facility] Pro vider Dr. Jimmy Sepulveda Attending Provider ZIA JOHNSON Referring Provider Mauricio Reyes Unavailable Unavailable Mauricio Reyes Attending Unavailable Neelima Dahl MD Primary Care Provider [phone] Unavailable Primary Care Provider [facility] Jacob Mackenzie DO Primary Care Provider [phone] Queden PIPE STEM SAWYER-SEMICONDUCTOR WAFERS TESTER, Rachell Yoana Primary Care Provid er Queden PIPE STEM SAWYER.SEMICONDUCTOR WAFERS TESTER, Rachell A Primary Care Provider Saturnino Velázquez [...] MD Unavailable Ramiro Hugo MD Unavailable Queden DIGITAL HARDWARE DESIGN ENGINEER-C, Rachell Primary Care Provider Neelima MAN, Dr. [...] Elio MAN, Dr. Driscoll Attending Provider Jaquelin iH CNM Attending Provider [phone] Jaquelin Hi CNM Referring Provider Unavailable Primary Care Provider Unavailabl e NO, [...] QUEDEN, RACHELL A Primary Care Unavailable CONOR DURATE Referring Unavailable FAIZA MISHRA Attending Unavailable QUEDEN, RACHELL A Primary Care Unavailable QUEDEN, RACHELL A Primary Care Unavailable HI, JAQUELIN Referring Unavailable QUEDEN, RACHELL A Primary Care Unavailable HI, JAQUELIN Referring Unavailable QUEDEN, RACHELL A Primary Care Unavailable HI, JAQUELIN Referring Unavailable HI, JAQUELIN [...] Care Unavailable HI, JAQUELIN Referring Unavailable Queden DIGITAL HARDWARE DESIGN ENGINEER, Rachell Primary Care Unavailable Prabhu Ortez Attending Unavailable Prabhu Ortez Referring Unavailable Elio Yamila Admitting Unavailable Elio Yamila Attending Unavailable Elio, Yamila Referring Unavailable Queden DIGITAL HARDWARE DESIGN ENGINEER, Rachell Primary Care Unavailable Yamila Ballard Attending Unavailable Tatum DIGITAL HARDWARE DESIGN ENGINEER, Rachell Primary Care Unavailable Jaquelin Hi Attending Unavailable Jaquelin Hi Referring Unavailable Tatum DIGITAL HARDWARE DESIGN ENGINEER, Rachell Primary Care Unavailable Jaquelin Hi Attending Unavailable Tatum DIGITAL HARDWARE DESIGN ENGINEER, Rachell Primary Care Unavailable Allergies Allergy Classification Reported Allergen(s) Allergy Type Date of Onset Reaction(s) Facility Latex (3 sources) Latex Substance Allergy 4 Itching [facility] (20 sources) Latex; Translations: [LATEX] Drug Allergy 4 Itching [facility] (1 source) Latex Propensity to adverse reactions to drug 4 Itching [facility] (1 source) Latex Drug allergy (disorder) 5 [facility] Repository Medications Current Medications Medication Drug Class(es) [...] trimester of ([facility]) Take 1 capsule (500 mg) by mouth [...] 500 mg capsule Indications: SVT (supraventricular tachycardia) ([facility]) , Palpitations Take 1 capsule (500 mg) [...] Start: 05-01-2017 take 1 capsule by mo [facility] once daily omeprazole [address] [...] trimester of ([facility]) Dissolve 1 tablet (4 mg) in the [...] minutes. Start: 07-02-2023 take 1 tablet by [facility] every six hours as needed for nausea [...] Comment on above: Take 1 tablet by ivolette th every 8 hours as needed for [...] gastric irritation. Do not crush or chew. [id number] 6-DHA ORAL (1 source) [id number] 6-DHA ORAL Take by mouth. Active VITAMINS TABLET (1 source) VITAMIN S TABLET ; 1 tab(s) orally once a day Quantity: 0 Refills: 3 Ordered: 12-Jul-2022 Joyce Gonzalez Generic Substitution Allowed Comments: Source=Surescript s, Medication=PRENAT AL VITAMINS TABLET, OriginatingSource =[place] [employer] OriginatingProvid er=BARBI TIAN, Duration=90, Refills=3, Date Last Modified/Filled=1 12-Apr-2022 Comment on above: Source=Surescripts, Medication= VITAMINS TABLET, OriginatingSource=[place] [employer] OriginatingProvider=BARBI TIAN, Duration=90, Refills=3, Date Last [...] Allowed Comments: Source=Surescripts, Medication=PROMETHAZINE 12.5 MG TABLET, OriginatingSource=[place] [employer] OriginatingProvider=JEWEL DAHL, Duration=15, Refills=6, Date Last Modified/Filled=06-Jul-2022 Comment on above: Source=Surescripts, Medication=PROMETHAZINE 12.5 MG TABLET, OriginatingSource=[place] [employer] OriginatingProvider=JEWEL DAHL, Duration=15, Refills=6, Date Last [...] 180 tablet 1 07/14/2023 09/18/2023 Discontinued levonorgestrel 0.530344 mg/hr intrauterine system (20 sources) Progestin, Progestin-containi [...] injection (DEPO-PROVERA) Start: 01-30-2023 End: 06-03-2023 medroxyPROGESTERone (DEPO-PA OVERA) 150 mg/mL Inject 1 mL intramuscularly [...] intravenous, Continuous, Starting on Fri06/20/23 at 0330 Iv-[id number] (Choletec) injection 6 millicurie (1 source) Start: [...] aftercare (1 source) Drug therapy finding; 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] 07-31-2023 Episodic Other aftercare (4 sources) Long-term current use of anticoagulant; Translations: [residential (current) use of anticoagulants] 07-02-2023 Episodic Other [...] first trimester ([facility])] Onset: 5 Episodic Other complications of (20 [...] of ; Translations: [32 weeks gestation of ([facility])] Onset: 5 Episodic Residual codes; unclassified (1 source) 28 weeks gestation of ; Translations: [28 weeks gestation of ([facility])] Onset: 5 Episodic Residual codes; unclassified (1 source) 24 weeks gestation of ; Translations: [24 weeks gestation of ([facility])] Onset: 5 Episodic Spondylosis; intervertebral disc disorders; [...] l (Bld)on 09-28-2024 Anisocytosis Ql (Bld) Present [facility] Basophils (Bld) [#/Vol] 0.00 10*3/uL [facility] Basophils/100 WBC (Bld) 0.0 % C [facility] Dacrocytes LM Ql (Bld) Few Cl [facility] Differential cell count method Nom (Bld) Manual [facility] Eosinophils (Bld) [#/Vol] 0.08 10*3/uL [facility] Eosinophils/100 WBC (Bld) 1.0 % [facility] Erythrocyte distribution width (RBC) [Ratio] 23.0 % High 11.5 - 15.0 % [facility] Giant platelets LM Ql (Bld) Occasional [facility] Hematocrit (Bld) [Volume fraction] 37.5 % 36.0 - 46.0 % [facility] Hemoglobin (Bld) [Mass/Vol] 12.3 g/dL 11.5 - 15.5 g/dL [facility] Interpretation and review of laboratory results Abnormal [facility] Lymphocytes (Bld) [#/Vol] 1.06 10*3/uL [facility] Lymphocytes/100 WBC (Bld) 14.0 % [facility] MCH (RBC) [Entitic mass] 28.3 pg 26.0 - 34.0 pg [facility] MCHC (RBC) [Mass/Vol] 32.8 g/dL 30.5 - 36.0 g/dL [facility] MCV (RBC) [Entitic vol] 86.2 fL 80.0 - 100.0 fL [facility] Monocytes (Bld) [#/Vol] 0.61 10*3/uL [facility] Monocytes/100 WBC (Bld) 8.0 % C [facility] Myelo % 2.0 % [facility] Neutrophils (Bld) [#/Vol] 5.70 10*3/uL [facility] Neutrophils/100 WBC (Bld) 75.0 % [facility] Nucleated RBC (Bld) [#/Vol] [facility] Nucleated RBC/100 WBC (Bld) [Ratio] 0.0 % /100 WBC [facility] Ovalocytes LM Ql (Bld) Few [facility] Platelet mean volume (Bld) [Entitic vol] [facility] Comment on above: Unable to Report. Platelets (Bld) [#/Vol] 102 10*3/uL Low [facility] Platelets Estimate (Bld) [#/Vol] Decreased [facility] Polychromasia LM Ql (Bld) Slight [facility] RBC (Bld) [#/Vol] 4.35 10*6/uL 3.90 - 5.2 0 m/uL [facility] Red Cell Morph Reviewed: see results of individual morphologies [facility] WBC (Bld) [#/Vol] 7.60 10*3/uL [facility] WBC Left Shift Ql (Bld) Present C [facility] This is an appended report. These results have been appended to a previously verified report. [facility] Anisocytosis Ql (Bld) Present Normal [facility] Comment on above: Order Comment: Speci men Type: BLOOD SPECIMEN Ordering Facility: [facility] Address: [address] [place], [place] [address] Performed By: #### 5 7021-8 #### [facility] CLIA [id number] [address] [place] [address] [place] Basophils (Bld) [#/Vol] 0.00 10*3/uL Normal <0.11 [facility] Comment on above: Order Comment: Speci men Type: BLOOD SPECIMEN Ordering Facility: [facility] Address: [address] [place] [address] Performed By: #### 5 7021-8 #### [facility] CLIA [id number] [address] [place] [address] [place] Basophils/100 WBC (Bld) 0.0 % Normal [facility] Comment on above: Order Comment: Speci men Type: BLOOD SPECIMEN Ordering Facility: [facility] Address: [address] [place] [address] Performed By: #### 5 7021-8 #### [facility] CLIA [id number] [address] [place] [address] [place] Dacrocytes LM Ql (Bld) Few Normal Cl [facility] Comment on above: Order Comment: Speci men Type: BLOOD SPECIMEN [facility]ing Facility: [facility] Address: [address] [place] [address] Performed By: #### 5 7021-8 #### [facility] CLIA [id number] [address] [place] [address] [place] Differential cell count method Nom (Bld) Manual Normal [facility] Comment on above: Order Comment: Speci men Type: BLOOD SPECIMEN [facility]ing [facility]: [facility] Address: [address] [place] [address] Performed By: #### 5 7021-8 #### [facility] CLIA [id number] [address] [place] [address] [place] Eosinophils (Bld) [#/Vol] 0.08 10*3/uL Normal <0.46 [facility] Comment on above: Order Comment: Speci men Type: BLOOD SPECIMEN [facility]ing Facility: [facility] Address: [address] [place] [address] Performed By: #### 5 7021-8 #### [facility] CLIA [id number] [address] [place] [address] [place] Eosinophils/100 WBC (Bld) 1.0 % Normal [facility] Comment on above: Order Comment: Speci men Type: BLOOD SPECIMEN Ordering Facility: [facility] Address: [address] [place] [address] Performed By: #### 5 7021-8 #### [facility] CLIA [id number] [address] [place] [address] [place] Erythrocyte distribution width (RBC) [Ratio] 23.0 % High 11.5-15.0 [facility] Comment on above: Order Comment: Speci men Type: BLOOD SPECIMEN Ordering Facility: [facility] Address: [address] [place] [address] Performed By: #### 5 7021-8 #### [facility] CLIA [id number] [address] [place] [address] [place] Giant platelets LM Ql (Bld) Occasional Normal [facility] Comment on above: Order Comment: Speci men Type: BLOOD SPECIMEN [facility]ing [facility]: [facility] Address: [address] [place] [address] Performed By: #### 5 7021-8 #### [facility] CLIA [id number] [address] [place] [address] STATES [facility] Hematocrit (Bld) [Volume fraction] 37.5 % Normal 36.0-46.0 [facility] Comment on above: Order Comment: Speci men Type: BLOOD SPECIMEN Ordering Facility: [facility] Address: [address] [place] [address] Performed By: #### 5 7021-8 #### [facility] CLIA [id number] [address] [place] [address] [place] Hemoglobin (Bld) [Mass/Vol] 12.3 g/dL Normal 11.5-15.5 [facility] Comment on above: Order Comment: Speci men Type: BLOOD SPECIMEN Ordering Facility: [facility] Address: [address] [place] [address] Performed By: #### 5 7021-8 #### JARETT [facility] CLIA [id number] [address] [place] [address] [place] Lymphocytes (Bld) [#/Vol] 1.06 10*3/uL Normal 1.00-4.00 [facility] Comment on above: Order Comment: Speci men Type: BLOOD SPECIMEN Ordering Facility: [facility] Address: [address] [place] [address] Performed By: #### 5 7021-8 #### [facility] CLIA [id number] [address] [place] [address] [place] Lymphocytes/100 WBC (Bld) 14.0 % Normal [facility] Comment on above: Order Comment: Speci men Type: BLOOD SPECIMEN [facility]ing [facility]: [facility] Address: [address] [place] [address] Performed By: #### 5 7021-8 #### [facility] CLIA [id number] [address] [place] [address] [place] MCH (RBC) [Entitic mass] 28.3 pg Normal 26.0-34.0 [facility] Comment on above: Order Comment: Speci men Type: BLOOD SPECIMEN Ordering Facility: [facility] Address: [address] [place] [address] Performed By: #### 5 7021-8 #### [facility] CLIA [id number] [address] [place] [address] [place] MCHC (RBC) [Mass/Vol] 32.8 g/dL Normal 30.5-36.0 [facility] Comment on above: Order Comment: Speci men Type: BLOOD SPECIMEN Ordering Facility: [facility] Address: [address] [place] [address] Performed By: #### 5 7021-8 #### [facility] CLIA [id number] [address] [place] [address] [place] MCV (RBC) [Entitic vol] 86.2 fL Normal 80.0-100.0 C [facility] Comment on above: Order Comment: Speci men Type: BLOOD SPECIMEN [facility]ing [facility] Address: [address] [place] [address] Performed By: #### 5 7021-8 #### [facility] CLIA [id number] [address] [place] [address] [place] Monocytes (Bld) [#/Vol] 0.61 10*3/uL Normal <0.87 [facility] Comment on above: Order Comment: Speci men Type: BLOOD SPECIMEN Ordering [facility]: [facility] Address: [address] [place] [address] Performed By: #### 5 7021-8 #### [facility] CLIA [id number] [address] [place] [address] [place] Monocytes/100 WBC (Bld) 8.0 % Normal C [facility] Comment on above: Order Comment: Speci men Type: BLOOD SPECIMEN Ordering [facility]: [facility] Address: [address] [place] [address] Performed By: #### 5 7021-8 #### [facility] CLIA [id number] [address] [place] [address] [place] MYELO% 2.0 % Normal [facility] Comment on above: Order Comment: Speci men Type: BLOOD SPECIMEN Ordering [facility] Address: [address] [place] [address] Performed By: #### 5 7021-8 #### [facility] CLIA [id number] [address] [place] [address] [place] Neutrophils (Bld) [#/Vol] 5.70 10*3/uL Normal 1.45-7.50 [facility] Comment on above: Order Comment: Speci men Type: BLOOD SPECIMEN Ordering Facility: [facility] Address: [address] [place] [address] Performed By: #### 5 7021-8 #### JARETT [facility] CLIA [id number] [facility] [place] [address] [place] Neutrophils/100 WBC (Bld) 75.0 % Normal [facility] Comment on above: Order Comment: Speci men Type: BLOOD SPECIMEN Ordering [facility] Address: [address] [place] [address] Performed By: #### 5 7021-8 #### [facility] CLIA [id number] [facility] [place] [address] [place] Nucleated RBC (Bld) [#/Vol] 10*3/uL Normal <0.01 [facility] Comment on above: Order Comment: Speci men Type: BLOOD SPECIMEN Ordering [facility]: [facility] Address: [address] [place] [address] Performed By: #### 5 7021-8 #### [facility] CLIA [id number] [address] [place] [address] [place] Nucleated RBC/100 WBC (Bld) [Ratio] 0.0 /100 WBC Normal [facility] Comment on above: Order Comment: Speci men Type: BLOOD SPECIMEN Ordering [facility]: [facility] Address: [address] [place] [address] Performed By: #### 5 7021-8 #### JARETT [facility] CLIA [id number] [address] [place] [address] [place] Ovalocytes LM Ql (Bld) Few Normal [facility] Comment on above: Order Comment: Speci men Type: BLOOD SPECIMEN Ordering [facility]: [facility] Address: [address] [place] [address] Performed By: #### 5 7021-8 #### [facility] CLIA [id number] [address] [place] [address] [place] Platelet mean volume (Bld) [Entitic vol] Normal [facility] Comment on above: Order Comment: Speci men Type: BLOOD SPECIMEN [facility]: [facility] Address: [address] [place] [address] Result Comment: Unab le to Report. Performed By: #### 5 7021-8 #### [facility] CLIA [id number] [address] [place] [address] OF [place] Platelets (Bld) [#/Vol] 102 10*3/uL Low 150-400 [facility] Comment on above: Order Comment: Speci men Type: BLOOD SPECIMEN [facility] Address: [address] [place] [address] Performed By: #### 5 7021-8 #### [facility] CLIA [id number] [address] [place] [address] [place] [facility] OF ANN Platelets Estimate (Bld) [#/Vol] Decreased Normal [facility] Comment on above: Order Comment: Speci men Type: BLOOD SPECIMEN Order[facility] Address: [address] [place] [address] Performed By: #### 5 7021-8 #### [facility] CLIA [id number] [address] [place] [address] STATES [facility] Polychromasia LM Ql (Bld) Slight Normal [facility] Comment on above: Order Comment: Speci men Type: BLOOD SPECIMEN Ordering [facility]: [facility] Address: [address] [place] [address] Performed By: #### 5 7021-8 #### [facility] CLIA [id number] [address] [place] [address] [place] RBC (Bld) [#/Vol] 4.35 10*6/uL Normal 3.90-5.20 [facility] Comment on above: Order Comment: Speci men Type: BLOOD SPECIMEN Order[facility] Address: [address] [place] [address] Performed By: #### 5 7021-8 #### [facility] CLIA [id number] [address] [place] [address] [place] RED CELL MORPH Reviewed: see results of individual morphologies Normal [facility] Comment on above: Order Comment: Speci men Type: BLOOD SPECIMEN Order[facility] Address: [address] [place] [address] Performed By: #### 5 7021-8 #### [facility]ARETT [facility] CLIA [id number] [address] [place] WBC (Bld) [#/Vol] 7.60 10*3/uL Normal 3.70-11.00 [facility] Comment on above: Order Comment: Speci men Type: BLOOD SPECIMEN [facility] Address: [address] [place] [address] Performed By: #### 5 7021-8 #### [facility] CLIA [id number] [address] [place] [address] [place] WBC Left Shift Ql (Bld) Present Normal [facility] Comment on above: Order Comment: Speci men Type: BLOOD SPECIMEN [facility] Address: [address] [place] [address] Performed By: #### 5 7021-8 #### [facility] CLIA [id number] [address] [place] [address] OF [facility] Comprehensive metabolic 2000 panelOrdered By: Brina Salas on 09-28-2024 Albumin [Mass/Vol] 3.8 g/dL Low 3.9 - 4.9 g/dL [facility] ALP [Catalytic activity/Vol] 176 U/L High 34 - 123 U/L [facility] ALT [Catalytic activity/Vol] 10 U/L 7 - 38 U/L [facility] Anion gap [Moles/Vol] 14 mmol/L 8 - 15 mmol/L [facility] AST [Catalytic activity/Vol] 16 U/L 13 - 35 U/L [facility] Bilirubin [Mass/Vol] 0.3 mg/dL 0.2 - 1.3 mg/dL [facility] Calcium [Mass/Vol] 10.5 mg/dL High 8.5 - 10. 2 mg/dL [facility] Chloride [Moles/Vol] 99 mmol/L 98 - 107 mmol/L [facility] CO2 [Moles/Vol] 22 mmol/L 22 - 30 mmol/L [facility] Creatinine [Mass/Vol] 0.67 mg/dL 0.58 - 0.96 mg/dL [facility] GFR/1.73 sq M.predicted among non-blacks MDRD (S/P/Bld) [Vol rate/Area] 127 mL/min/{1.73_m2} - PINF [facility] Comment on above: Estimated Glomerular Filtration Rate [...] [Mass/Vol] 91 mg/dL 74 - 99 mg/dL [facility] Comment on above: The [place] Diabete s Association (ADA) provides guidance for [...] Standards of Medical Care in Diabetes 2016, [place] Diabetes Association. Diabetes Care. 2016.39(Suppl 1). Interpretation and review of laboratory results Abnormal [facility] Potassium [Moles/Vol] 4.3 mmol/L 3.7 - 5.1 mmol/L [facility] Protein [Mass/Vol] 6.6 g/dL 6.3 - 8.0 g/dL [facility] Sodium [Moles/Vol] 135 mmol/L Low 136 - 144 mmol/L [facility] Urea nitrogen [Mass/Vol] 15 mg/dL 7 - 21 mg/dL [facility] Comprehensive metabolic 2000 panelon 09-28-2024 Albumin [Mass/Vol] 3.8 g/dL Low 3.9-4.9 [facility] Comment on above: Order Comment: Speci men Type: BLOOD SPECIMENOrdering Facility: [facility] Address: [address] [place] [address] Performed By: #### 2 4323-8, 3083-02 ####[facility] GRANT CORRALA [id number] [place] [address] [place] ALP [Catalytic activity/Vol] 176 U/L High 34-123 [facility] Comment on above: Order Comment: Speci men Type: BLOOD SPECIMENOrdering Facility: [facility] Address: [address] [place] [address] Performed By: #### 2 4323-8, 3083-02 ####[facility] LORENAJAQUIA [id number] [place] [address] [place] ALT [Catalytic activity/Vol] 10 U/L Normal 7-38 [facility] Comment on above: Order Comment: Speci men Type: BLOOD SPECIMENOrdering Facility: [facility] Address: [address] [place] [address] Performed By: #### 2 4323-8, 3083-02 ####[facility] FLIPWRADHALIA [id number] [place] [address] [place] Anion gap [Moles/Vol] 14 mmol/L Normal 8-15 [facility] Comment on above: Order Comment: Speci men Type: BLOOD SPECIMENOrdering Facility: TRI[facility] Address: [address] [place] [address] Performed By: #### 2 4323-8, 3083-02 ####[facility] KRISTYWRADHALIA [id number] [place] [address] [place] AST [Catalytic activity/Vol] 16 U/L Normal 13-35 [facility] Comment on above: Order Comment: Speci men Type: BLOOD SPECIMENOrdering Facility: [facility] Address: [address] [place] [address] Performed By: #### 2 4323-8, 3083-02 ####[facility] MILLTOWNCLIA [id number] [place] [address] [place] Bilirubin [Mass/Vol] 0.3 mg/dL Normal 0.2-1.3 [facility] Comment on above: Order Comment: Speci men Type: BLOOD SPECIMENOrdering Facility: [facility] Address: [address] [place] [address] Performed By: #### 2 4323-8, 3083-02 ####[facility] MILLTOWNCLIA [id number] [place] [address] [place] Calcium [Mass/Vol] 10.5 mg/dL High 8.5-10.2 [facility] Comment on above: Order Comment: Speci men Type: BLOOD SPECIMENOrdering Facility: [facility] Address: [address] [place] [address] Performed By: #### 2 4323-8, 3083-02 ####[facility] MILLTOWNCLIA [id number] [place] [address] [place] Chloride [Moles/Vol] 99 mmol/L Normal 98-107 [facility] Comment on above: Order Comment: Speci men Type: BLOOD SPECIMENOrdering Facility: [facility] Address: [address] [place], [place] [address] Performed By: #### 2 4323-8, 3083-02 ####[facility] MILLTOWNCLIA [id number] [place] [address] [place] CO2 [Moles/Vol] 22 mmol/L Normal 22-30 [facility] Comment on above: Order Comment: Speci men Type: BLOOD SPECIMENOrdering Facility: [facility] Address: [address] [place], [place] [address] Performed By: #### 2 4323-8, 3083-02 ####[facility] [id number] [place] [address] [place] Creatinine [Mass/Vol] 0.67 mg/dL Normal 0.58-0.96 [facility] Comment on above: Order Comment: Kayli moon Type: BLOOD SPECIMENOrdering Facility: [facility] Address: [address] [place] [address] Performed By: #### 2 4323-8, 3083-02 ####[facility] [id number] [place] [address] [place] eGFRcr SerPlBld CKD-EPI 2020 127 mL/min/1.73m??? Normal >=60 [facility] Comment on above: Order Comment: Kayli moon Type: BLOOD SPECIMENOrdering Facility: [facility] Address: [address] [place] [address] Result Comment: Nick mated Glomerular Filtration Rate [...] GFR. Performed By: #### 2 4323-8, 3083-02 ####[facility] [id number] [place] [address] [place] Glucose [Mass/Vol] 91 mg/dL Normal 74-99 [facility] Comment on above: Order Comment: Kayli moon Type: BLOOD SPECIMENOrdering Facility: [facility] Address: [address] [place] [address] Result Comment: The [place] Diabetes Association (ADA) provides guidance for cutoff [...] Standards of Medical Care in Diabetes 2016, [place] Diabetes Association. Diabetes Care. 2016.39(Suppl 1). Performed By: #### 2 4323-8, 3083- ####[facility] KRISTYBUTCH [id number] [place] [address] [place] Potassium [Moles/Vol] 4.3 mmol/L Normal 3.7-5.1 [facility] Comment on above: Order Comment: Speci men Type: BLOOD SPECIMENOrdering Facility: [facility] Address: [address] [place] [address] Performed By: #### 2 4323-8, 3083-02 ####[facility] DORALANDRES [id number] [place] [address] [place] Protein [Mass/Vol] 6.6 g/dL Normal 6.3-8.0 [facility] Comment on above: Order Comment: Speci men Type: BLOOD SPECIMENOrdering Facility: [facility] Address: [address] [place] [address] Performed By: #### 2 4323-8, 3083-02 ####[facility] DORALANDRES [id number] [place] [address] [place] Sodium [Moles/Vol] 135 mmol/L Low 136-144 [facility] Comment on above: Order Comment: Speci men Type: BLOOD SPECIMENOrdering Facility: [facility] Address: [address] [place] [address] Performed By: #### 2 4323-8, 3083-02 ####[facility] DORALRADHALIA [id number] [place] [address] [place] Urea nitrogen [Mass/Vol] 15 mg/dL Normal 7-21 [facility] Comment on above: Order Comment: Speci men Type: BLOOD SPECIMENOrdering Facility: [facility] Address: [address] [place] [address] Performed By: #### 2 4323-8, 3084-1 ####[facility] [id number] [place] [address] [place] URIC ACIDon 09-28-2024 Urate [Mass/Vol] 5.0 mg/dL 2.5 - 6.6 mg/dL [facility] URINE OB DIP B/Oon 5 Glucose Ql (U) Negative Neg mg/dL [facility] Interpretation and review of laboratory results Normal [facility] Protein.monoclonal (U) [Mass/Vol] Negative Neg mg/dL [facility] Urate SerPl-mCncon 5 Urate [Mass/Vol] 5.0 mg/dL Normal 2.5-6.6 [facility] Comment on above: Order Comment: Speci men Type: BLOOD SPECIMENOrdering Facility: [facility] Address: [address] [place] [address] Performed By: #### 2 4323-8, 4-1 ####[facility] [id number] [place] [address] [place] Urate [Mass/Vol]on 5 Interpretation and review of laboratory results Normal [facility] BACTERIAL VAGINOSIS NAATon 0 2024 Lactobacillus crispatus+gasseri+jense mendoza + Gardnerella vaginalis + Atopobium vaginae rRNA SHYAM+probe Ql (Vag fld) Not detected Normal Not detected [facility] Comment on above: Order Comment: Speci men Type: SWABOrdering Facility: [facility] Address: [address] [place] [address] Performed By: #### 3 6902-5, BVAMP ####[facility] LABCLIA [id number] [address] [place] C. trachomatis+N. gonorrhoea e DNA SHYAM+probe Ql (Unsp spec)on 2024 C. trachomatis rRNA SHYAM+probe Ql (Unsp spec) Not detected Normal Not detected [facility] Comment on above: Order Comment: Speci men Type: SWABOrdering Facility: [facility] Address: [address] [place] [address] Performed By: #### 3 6902-5, BVAMP ####[facility] LABCLIA [id number] [place] [address] [place] N. gonorrhoeae rRNA SHYAM+probe Ql (Unsp spec) Not detected Normal Not detected [facility] Comment on above: Order Comment: Speci men Type: SWABOrdering Facility: [facility] Address: [address] [place] [address] Performed By: #### 3 6902-5, BVAMP ####[facility] LABCLIA [id number] [place] [address] [place] ALMITA/TRICHOMONAS NAATon 0 2024 C. glabrata RNA SHYAM+probe Ql (Vag fld) Not detected Normal Not detected [facility] Comment on above: Order Comment: Speci men Type: SWAB [facility] Address: [address] [place] [address] Performed By: #### C VTV #### [facility] CLIA [id number] [address] [place] [address] [place] Almita sp DNA SHYAM+probe Ql (Vag fld) Detected Abnormal Not detected [facility] Comment on above: Order Comment: Speci men Type: SWAB [facility] Address: [address] [place] [address] Result Comment: The Almita species group target includes C. albicans, C. tropicalis, C. parapsilosis, and C. dubliniensis. Performed By: #### C VTV #### [facility] CLIA [id number] [address] [place] [address] STATES [place] [facility] T. vaginalis DNA SHYAM+probe Ql (Unsp spec) Not detected Normal Not detected [facility] Comment on above: Order Comment: Speci men Type: SWAB [facility] Address: [address] [place] [address] Performed By: #### C VTV #### [facility] CLIA [id number] [address] [place] [address] OF [place] HISTORY PHYSICALon HISTORY PHYSICAL HNO ID: [id number] Author: YAMILA BALLARD MD Service: ? Author [...] H/O shoulder dystocia in prior , currently ([facility]) 12/14/22 Hemorrhoids History of back problems History of depression History of shoulder dystocia in prior 03/10/2024 Kidney stones Paroxysmal SVT (supraventricular tachycardia) ([facility]) Postoperative pulmonary embolism ([facility]) 06/2023 Psychiatric disorder depression, anxiety and PTSD PAST SURGICAL HISTORY Procedure Laterality Date CHOLECYSTECTOMY HX [facility] 09/15/2023 PT ED HEART AND [...] per week Types: Marijuana Comment: smoking Normal [facility] ROUTINE, GROUP B ST REPTOCOCCUS BY PCRon 2024 ROUTINE, GROUP B STREPTOCOCCUS BY PCR Not detected Normal [facility] Comment on above: Performed By: #### G BPCR ####[facility] LABCLIA [id number] [address] STATES OF [facility] URINE OB DIP B/Oon Glucose Ql (U) Negative Neg mg/dL [facility] Interpretation and review of laboratory results Normal [facility] Protein.monoclonal (U) [Mass/Vol] Negative Neg mg/dL [facility] CNPNon 09-21-2024 CNPN Telephone (OBGYWM) KEAGAN ALICIA ([id number]) 4 F Date Time Provider Department 09/21/24 YAMILA BALLARD OBIRIS During your visit today, we recorded the following information about you: Chantelle Marquis RN 09/21/2024 9:21 AM Signed [id number] Received a fax from [facility] [place] for patient's records. Patient is scheduled for her Pre Op with RR tomorrow for her C/S scheduled on 10/07. Left message for patient to call the office. Is she transferring care? 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 Performed By: #### L 205.1000 ####[facility] [address] [place], [address] OB Triage Physician Noteon 0 09-19-2024 OB Triage Physician Note [facility] Medical Records Department [address] [place] [address] OB Triage Physician Note 09/19/24 1330 MR#: [id number] Acct: [id number] Name: KEAGAN ALICIA Rep #: [id number] : 2000 23 From: Jaquelin Hi CNM PCP: [facility] Status:REG CLI Y Location: [id number] HPI - General HPI Narrative KEAGAN ALICIA, [...] CC: FRANDY Hi; ZIA Amador Signed Normal [facility] (ROM) Rupture Of Membraneson 09-09-2024 ROM Negative Normal Negative [facility] Comment on above: Result Comment: Amni otic fluid not present indicates No Rupture of Membranes at time of specimen collection. Performed By: #### L 205.1000 #### [facility] [address] [place], [address] [facility] 09-09-2024 CNPN Telephone (OBGYWM) KEAGAN ALICIA ([id number]) 4 F Date Time Provider Department 09/09/24 [...] Hi. Patient was told to go to [facility] for evaluation. Patient is scheduled for [...] Status:Closed by TAMIE STEWARD on 09/09/24 Normal [facility] No Panel Informationon 09-09 Interpretation and review of laboratory results Abnormal [facility] OB Triage Physician Noteon 0 09-09-2024 OB Triage Physician Note [facility] Medical Records Department [address] [place] [address] OB Triage Physician Note 09/09/24 1451 MR#: [id number] Acct: [id number] Name: KEAGAN ALICIA Rep #: [id number] : 2000 23 From: Yamila Ballard MD PCP: Rachell Amador NP-C Status:REG CLI Y Location: [place] [address] HPI - General General Date of Service: [...] 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 09/09/24 1502 Date (more content not included)... Normal [facility] RAPID TOX SCREEN WITH RELEXo n 09-09-2024 Amphetamine (U) [Mass/Vol] Negative NEGATIVE NG/ML [facility] Comment on above: <500 ng/ml CUTOFF Barbiturates Screen Ql (U) Negative NEGATIVE NG/ML [facility] Comment on above: <200 ng/ml CUTOFF Benzodiazepines Ql (U) Negative NEGATIVE NG/M L [facility] Comment on above: <200 ng/ml CUTOFF Benzoylecgonine Ql (U) Negative NEGATIVE NG/M L [facility] Comment on above: <150 ng/ml CUTOFF Buprenorphine Ql (U) Negative NEGATIVE NG/ML [facility] Comment on above: <10 ng/ml CUTOFF Cannabinoids Screen Ql (U) Negative NEGATIVE NG/ML [facility] Comment on above: <50 ng/ml CUTOFF Fentanyl Negative NEGATIVE NG/ML [facility] Comment on above: 1.0 ng/mL CUTOFF *Unconfirmed Screening Result* Unconfirmed screening results are to be used only for medical treatment purposes. This test has not been approved by the FDA. Methadone+Metabolite Screen Ql (U) Negative NEGATIVE NG/ML [facility] Comment on above: Methadone Metabolite <100 ng/ml CUTOFF Testing performed at [place] [address] Methamphetamine (U) [Mass/Vol] Negative NEGATIVE NG/ML [facility] Comment on above: <500 ng/ml CUTOFF Opiates Screen Ql (U) Negative NEGATIVE NG/ML [facility] Comment on above: <300 ng/ml CUTOFF oxyCODONE Ql (U) Negative NEGATIVE NG/ML [facility] Comment on above: <100 ng/ml CUTOFF Tricyclic antidepressants Screen Ql (U) Negative NEGATIVE NG/ML [facility] Comment on above: <1000 ng/ml CUTOFF [facility] RAPID TOX SCREEN,URINE WITH REFLEXon 09-09-2024 AMPHETAMINE Negative Normal NEGATIVE [facility] Comment on above: Result Comment: <500 ng/ml CUTOFF Performed By: #### R TOXR, UMAC, UMIC #### [place] [address] BARBITURATES Negative Normal NEGATIVE [facility] Comment on above: Result Comment: <200 ng/ml CUTOFF Performed By: #### R TOXR, UMAC, UMIC #### [place] [address] BENZODIAZEPINES Negative Normal NEGATIVE [facility] Comment on above: Result Comment: <200 ng/ml CUTOFF Performed By: #### R TOXR, UMAC, UMIC #### [place] [address] BUPRENORPHINE Negative Normal NEGATIVE [facility] Comment on above: Result Comment: <10 ng/ml CUTOFF Performed By: #### R TOXR, UMAC, UMIC #### [place] [address] CANNABINOIDS Negative Normal NEGATIVE [facility] Comment on above: Result Comment: <50 ng/ml CUTOFF Performed By: #### R TOXR, UMAC, UMIC #### [place] [address] COCAINE Negative Normal NEGATIVE [facility] Comment on above: Result Comment: <150 ng/ml CUTOFF Performed By: #### R TOXR, UMAC, UMIC #### [place] [address] FENTANYL Negative Normal NEGATIVE [facility] Comment on above: Result Comment: 1.0 ng/mL CUTOFF *Unconfirmed Screening Result* Unconfirmed screening results are to be used only for medical treatment purposes. This test has not been approved by the FDA. Performed By: #### R TOXR, UMAC, UMIC #### [place] [address] METHADONE METABOLITE Negative Normal NEGATIVE [facility] Comment on above: Result Comment: Meth adone Metabolite <100 ng/ml CUTOFF Testing performed at [place] [address] Performed By: #### R TOXR, UMAC, UMIC #### [place] [address] METHAMPHETAMINE Negative Normal NEGATIVE [facility] Comment on above: Result Comment: <500 ng/ml CUTOFF Performed By: #### R TOXR, UMAC, UMIC #### [place] [address] OPIATES Negative Normal NEGATIVE [facility] Comment on above: Result Comment: <300 ng/ml CUTOFF Performed By: #### R TOXR, UMAC, UMIC #### [place] [address] OXYCODONE Negative Normal NEGATIVE [facility] Comment on above: Result Comment: <100 ng/ml CUTOFF Performed By: #### R TOXR, UMAC, UMIC #### [place] [address] TRICYCLIC ANTIDEPRESSANTS Negative Normal NEGATIVE [facility] Comment on above: Result Comment: <100 0 ng/ml CUTOFF Performed By: #### R TOXR, UMAC, UMIC #### [place] [address] STREP SCREEN GRP Bon 07-31-2 025 STREP SCREEN GRP B SPECIMEN DESCRIPTION VAGINAL/RECTAL CULTURE NO GROUP B BETA STREP ISOLATED * Result Note: Testing performed at [place] [address] * REPORT STATUS 09/12/2024 * Result Note: FINAL * Normal [facility] Comment on above: Performed By: #### O BSC #### Testing performed at [address] [address] URINALYSIS, MACROon 09-10-19 25 Bilirubin Ql (U) SMALL Abnormal NEGATIVE [facility] Clarity (U) CLOUDY Abnormal CLEAR [facility] [...] System Nitrite Ql (U) Negative NEGATIVE [facility] pH (U) 6 [pH] 5.0 - 7.0 [facility] Protein Ql (U) 30 mg/dl Abnormal NEGATIVE [facility] Specific gravity (U) [Rel density] >1.030 High 1.010 - 1.025 [facility] Urobilinogen (U) [Mass/Vol] 0.2 mg/dL [facility] URINE CULTUREon 09-09-2024 Bacteria identified Cx Nom (U) SPECIMEN DESCRIPTION URINE - OTHER CULTURE NO GROWTH 2 DAYS * Result Note: Testing performed at [place] [address] * REPORT STATUS 09/11/2024 * Result Note: FINAL * Normal [facility] Comment on above: Performed By: #### A URNC #### Testing performed at [address] [address] URINE MACROSCOPICon 09-10-19 25 Bilirubin Ql (U) SMALL Abnormal NEGATIVE [facility] Comment on above: Performed By: #### R TOXR, UMAC, UMIC #### Testing performed at [address] [address] Clarity (U) CLOUDY Abnormal CLEAR [facility] Comment on above: Performed By: #### R TOXR, UMAC, UMIC #### Testing performed at [address] [address] Color (U) YELLOW Normal YELLOW [facility] Comment on above: Performed By: #### R TOXR, UMAC, UMIC #### [place] [address] Glucose Ql (U) Negative Normal NEGATIVE [facility] Comment on above: Performed By: #### R TOXR, UMAC, UMIC #### [place] [address] pH (U) 6.0 [pH] Normal 5.0-7.0 [facility] Comment on above: Performed By: #### R TOXR, UMAC, UMIC #### [place] [address] Protein (U) [Mass/Vol] 30 mg/dL Abnormal NEGATIVE [facility] Comment on above: Performed By: #### R TOXR, UMAC, UMIC #### Testing performed at [place] [id number] URINE HEMOGLOBIN SMALL Abnormal NEGATIVE [facility] Comment on above: Performed By: #### R TOXR, UMAC, UMIC #### [place] [address] URINE KETONE 15 mg/dl Abnormal NEGATIVE [facility] Comment on above: Performed By: #### R TOXR, UMAC, UMIC #### [place] [address] URINE LEUKOTEST TRACE Abnormal NEGATIVE [facility] Comment on above: Performed By: #### R TOXR, UMAC, UMIC #### [place] [address] URINE NITRATES Negative Normal NEGATIVE [facility] Comment on above: Performed By: #### R TOXR, UMAC, UMIC #### [place] [address] URINE SPEC GRAVITY >1.030 High 1.010-1.025 [facility] Comment on above: Performed By: #### R TOXR, UMAC, UMIC #### [place] [address] Urobilinogen Qn (U) 0.2 {Teagan'U}/dL Normal 0.2-1.0 [facility] Comment on above: Performed By: #### R TOXR, UMAC, UMIC #### [place] [address] URINE MICROSCOPICon 09-10-19 25 Bacteria LM.HPF (Urine sed) [#/Area] 2+ Abnormal NEGATIVE [facility] Casts LM.LPF (Urine sed) [#/Area] NONE NONE /LPF [facility] Crystals LM Nom (Urine sed) NONE NONE [facility] Epithelial cells LM Ql (Urine sed) 5 TO 10 /HPF [facility] Mucus Ql (Urine sed) Negative NEGATIVE [facility] RBC LM.HPF (Urine sed) [#/Area] 5 TO 10 NEGATIVE /HPF [facility] Urine sediment comments LM Shemar (Urine sed) REFLEX CULTURE PER ESTABLISHED CRITERIA. [facility] WBC LM.HPF (Urine sed) [#/Area] '5 TO 10 NEGATIVE /HPF [facility] BACTERIA 2+ Abnormal NEGATIVE [facility] Comment on above: Performed By: #### R TOXR, UMAC, UMIC #### [place] [address] CASTS NONE Normal [facility] Comment on above: Performed By: #### R TOXR, UMAC, UMIC #### Testing performed at [place] [id number] CRYSTAL NONE Normal [facility] Comment on above: Performed By: #### R TOXR, UMAC, UMIC #### [place] [address] Epithelial cells LM Ql (Urine sed) 5 TO 10 Normal [facility] Comment on above: Performed By: #### R TOXR, UMAC, UMIC #### [place] [address] Mucus Ql (Urine sed) Negative Normal NEGATIVE [facility] Comment on above: Performed By: #### R TOXR, UMAC, UMIC #### Testing performed at [facility] [address] [place] [address] URINE COMMENT REFLEX CULTURE PER ESTABLISHED CRITERIA. Normal [facility] Comment on above: Performed By: #### R TOXR, UMAC, UMIC #### Testing performed at [facility] [address] [place] [address] URINE RBC'S 5 TO 10 Normal NEGATIVE [facility] Comment on above: Performed By: #### R TOXR, UMAC, UMIC #### Testing performed at [facility] [address] [place] [address] URINE WBC'S '5 TO 10 Normal NEGATIVE [facility] Comment on above: Performed By: #### R TOXR, UMAC, UMIC #### Testing performed at [address] [address] Urine Cultureon 09-09-2024 URC Culture exhibits no growth. Normal [facility] Comment on above: Performed By: #### M 100.2200 #### [facility] [address] [place], [address] OB Triage Physician Noteon 0 09-08-2024 OB Triage Physician Note [facility] Medical Records Department [address] [facility] [address] OB Triage Physician Note 09/08/24 1826 MR#: [id number] Acct: [id number] Name: KEAGAN ALICIA Rep #: [id number] : 2000 23 From: Yamila Ballard MD PCP: ZIA [facility] Status:DEP CLI Y Location: [facility] HPI - General General Date [...] Cosigner Signature (if applicable): Date _ CC: DIGITAL HARDWARE DESIGN ENGINEER-Gayla Amador; Dr. Yamila Ballard MD Signed Normal [facility] URINE OB DIP B/Oon Glucose Ql (U) Negative Neg mg/dL [facility] Interpretation and review of laboratory results Normal [facility] Protein.monoclonal (U) [Mass/Vol] Negative Neg mg/dL [facility] Urinalysis, Routine (Dipstic k)on 09-08-2024 LEUK ESTERASE 500 /ul Abnormal Negative [facility] Comment on above: Order Comment: LILI CTOR TO SPECIFY Performed By: #### L 400.2010 ####[facility] [address] [place], [address] Nitrite Ql (U) Negative Normal Negative [facility] Comment on above: Order Comment: LILI CTOR TO SPECIFY Performed By: #### L 400.2010 ####[facility] [address] [place], [address] OCCULT BLOOD-UR 50 /ul Abnormal Negative [facility] Comment on above: Order Comment: LILI CTOR TO SPECIFY Performed By: #### L 400.2010 ####[facility] [address] [place], [address] BILIRUBIN URINE Negative Normal Negative [facility] Comment on above: Order Comment: LILI CTOR TO SPECIFY Performed By: #### L 400.2010 ####[facility] [address] [place], [address] Clarity (U) Cloudy Normal Clear [facility] Comment on above: Order Comment: LILI CTOR TO SPECIFY Performed By: #### L 400.2010 ####[facility] [address] [place], [address] Color (U) Yellow Normal Yellow [facility] Comment on above: Order Comment: LILI CTOR TO SPECIFY Performed By: #### L 400.2010 ####[facility] [address] [place], [address] GLUCOSE, UR Negative Normal Normal [facility] Comment on above: Order Comment: COLLE CTOR TO SPECIFY Performed By: #### L 400.2010 ####[facility] [address] [place], [address] KETONE UR 5 mg/dl Abnormal Negative [facility] Comment on above: Order Comment: LILI CTOR TO SPECIFY Performed By: #### L 400.2010 ####[facility] [address] [place], [address] pH UR 6.0 Normal 5.0 - 8.0 [facility] Comment on above: Order Comment: LILI CTOR TO SPECIFY Performed By: #### L 400.2010 ####[facility] [address] [place], [address] PROT DIPSTX 30 mg/dl Abnormal Negative [facility] Comment on above: Order Comment: LILI CTOR TO SPECIFY Performed By: #### L 400.2010 ####[facility] [address] [place], [address] SP.GR. DIPSTX 1.020 Normal 1.002-1.030 [facility] Comment on above: Order Comment: LILI CTOR TO SPECIFY Performed By: #### L 400.2010 ####[facility] [address] [place], [address] UROBILI Normal Normal Normal [facility] Comment on above: Order Comment: LILI CTOR TO SPECIFY Performed By: #### L 400.2010 ####[facility] [address] [place], [address] Bilirubin Test strip Ql (U)O rdered By: Yamila Ballard on 09-07-2024 Bilirubin Ql (U) Negative Negative [facility] Examination level ultrasound on 09-07-2024 [facility] Radiology Study observation (narrative) [facility] Ketones Test strip Ql (U)Ord ered By: Yamila Ballard on 09-07-2024 Ketones Ql (U) 5 mg/dl High Negative [facility] Nitrite Test strip Ql (U)Ord ered By: Yamila Ballard on 09-07-2024 Nitrite Ql (U) Negative Negative [facility] Protein Test strip Ql (U)Ord ered By: Yamila Ballard on 09-07-2024 Protein Ql (U) 30 mg/dl High Negative [facility] URINE OB DIP B/Oon Glucose Ql (U) Negative Neg mg/dL [facility] Interpretation and review of laboratory results Normal [facility] Protein.monoclonal (U) [Mass/Vol] Negative Neg mg/dL [facility] Urine clarityOrdered By: Jasmyn Ballard on 09-07-2024 Clarity (U) Cloudy Clear [facility] Urine color determinationOrd ered By: Yamila Ballard on 09-07-2024 Color (U) Yellow Yellow [facility] Urine cultureOrdered By: Jasmyn Ballard on 09-07-2024 Bacteria identified Cx Nom (U) Culture exhibits no growth. [facility] Urine glucose detectionOrder ed By: Yamila Ballard on 09-07-2024 Glucose Ql (U) Negative Normal [facility] Urine leukocyte esterase det ection by dipstickOrdered By: Yamila Ballard on 09-07-2024 Leukocyte esterase Test strip Ql (U) 500 /ul High Negative [facility] Urine pHOrdered By: Yamila Ballard on 09-07-2024 pH (U) 6.0 [pH] 5.0 - 8.0 [facility] Urine specific gravity measu rementOrdered By: Yamila Ballard on 09-07-2024 Specific gravity (U) [Rel density] 1.020 1.002-1.030 [facility] Urine urobilinogen measureme ntOrdered By: Yamila Ballard on 09-07-2024 Urobilinogen Ql (U) Normal mg/dl Normal [facility] CBC W Auto Differential pane l (Bld)on 09-04-2024 Basophils (Bld) [#/Vol] 0.03 10*3/uL Normal <0.11 [facility] Comment on above: Order Comment: Speci men Type: BLOOD SPECIMEN Ordering Facility: [facility] Address: [address] [place] [address] Performed By: #### 5 7021-8 #### [facility] CLIA [id number] [address] [place] [address] [place] Basophils/100 WBC (Bld) 0.4 % Normal [facility] Comment on above: Order Comment: Speci men Type: BLOOD SPECIMEN [facility]ing Facility: [facility] Address: [address] [place] [address] Performed By: #### 5 7021-8 #### [facility] CLIA [id number] [address] [place] [address] [place] Differential cell count method Nom (Bld) Auto Normal [facility] Comment on above: Order Comment: Speci men Type: BLOOD SPECIMEN Ordering Facility: [facility] Address: [address] [place] [address] Performed By: #### 5 7021-8 #### [facility] CLIA [id number] [address] [place] [address] [place] Eosinophils (Bld) [#/Vol] 0.07 10*3/uL Normal <0.46 [facility] Comment on above: Order Comment: Speci men Type: BLOOD SPECIMEN [facility]: [facility] Address: [address] [place] [address] Performed By: #### 5 7021-8 #### [facility] CLIA [id number] [address] [place] [address] [place] Eosinophils/100 WBC (Bld) 0.9 % Normal [facility] Comment on above: Order Comment: Speci men Type: BLOOD SPECIMEN Ordering Facility: [facility] Address: [address] [place] [address] Performed By: #### 5 7021-8 #### [facility] CLIA [id number] [address] [place] [address] [place] Erythrocyte distribution width (RBC) [Ratio] 23.7 % High 11.5-15.0 [facility] Comment on above: Order Comment: Speci men Type: BLOOD SPECIMEN Order[facility] Facility: [facility] Address: [address] [place] [address] Performed By: #### 5 7021-8 #### [facility] CLIA [id number] [address] [place] [address] [place] Hematocrit (Bld) [Volume fraction] 37.6 % Normal 36.0-46.0 [facility] Comment on above: Order Comment: Speci men Type: BLOOD SPECIMEN Ordering Facility: [facility] Address: [address] [place] [address] Performed By: #### 5 7021-8 #### [facility] CLIA [id number] [address] [place] [id number] [place] Hemoglobin (Bld) [Mass/Vol] 11.8 g/dL Normal 11.5-15.5 [facility] Comment on above: Order Comment: Speci men Type: BLOOD SPECIMEN [facility]ing [facility]: [facility] Address: [address] [place] [address] Performed By: #### 5 7021-8 #### [facility] CLIA [id number] [address] [place] [id number] [place] Immature granulocytes (Bld) [#/Vol] 0.10 10*3/uL High <0.10 [facility] Comment on above: Order Comment: Speci men Type: BLOOD SPECIMEN Ordering Facility: [facility] Address: [address] [place] [address] Performed By: #### 5 7021-8 #### [facility] CLIA [id number] [address] [place] [id number] [place] Immature granulocytes/100 WBC (Bld) 1.3 % Normal [facility] Comment on above: Order Comment: Speci men Type: BLOOD SPECIMEN Ordering Facility: [facility] Address: [address] [place] [address] Performed By: #### 5 7021-8 #### [facility] CLIA [id number] [address] [place] [address] [place] Lymphocytes (Bld) [#/Vol] 1.46 10*3/uL Normal 1.00-4.00 [facility] Comment on above: Order Comment: Speci men Type: BLOOD SPECIMEN Ordering [facility]: [facility] Address: [address] [place] [address] Performed By: #### 5 7021-8 #### [facility] CLIA [id number] [address] [place] Lymphocytes/100 WBC (Bld) 19.6 % Normal [facility] Comment on above: Order Comment: Speci men Type: BLOOD SPECIMEN Ordering [facility]: [facility] Address: [address] [place] [address] Performed By: #### 5 7021-8 #### [facility] CLIA [id number] [address] [place] [address] [place] MCH (RBC) [Entitic mass] 27.3 pg Normal 26.0-34.0 [facility] Comment on above: Order Comment: Speci men Type: BLOOD SPECIMEN Ordering [facility]: [facility] Address: [address] [place] [address] Performed By: #### 5 7021-8 #### [facility] CLIA [id number] [address] [place] [address] [place] MCHC (RBC) [Mass/Vol] 31.4 g/dL Normal 30.5-36.0 [facility] Comment on above: Order Comment: Speci men Type: BLOOD SPECIMEN Ordering [facility]: [facility] Address: [address] [place] [address] Performed By: #### 5 7021-8 #### [facility] CLIA [id number] [address] [place] [address] [place] MCV (RBC) [Entitic vol] 87.0 fL Normal 80.0-100.0 [facility] Comment on above: Order Comment: Speci men Type: BLOOD SPECIMEN Ordering [facility]: [facility] Address: [address] [place] [address] Performed By: #### 5 7021-8 #### [facility] CLIA [id number] [address] [place] [address] [place] Monocytes (Bld) [#/Vol] 0.76 10*3/uL Normal <0.87 [facility] Comment on above: Order Comment: Speci men Type: BLOOD SPECIMEN Ordering [facility]: [facility] Address: [address] [place] [address] Performed By: #### 5 7021-8 #### [facility] CLIA [id number] [address] [place] [address] [place] Monocytes/100 WBC (Bld) 10.2 % Normal [facility] Comment on above: Order Comment: Speci men Type: BLOOD SPECIMEN Ordering [facility]: [facility] Address: [address] [place] [address] Performed By: #### 5 7021-8 #### [facility] CLIA [id number] [address] [place] [address] [place] Neutrophils (Bld) [#/Vol] 5.04 10*3/uL Normal 1.45-7.50 [facility] Comment on above: Order Comment: Speci men Type: BLOOD SPECIMEN Ordering [facility] Address: [address] [place] [address] Performed By: #### 5 7021-8 #### [facility] CLIA [id number] [address] [place] [address] [place] Neutrophils/100 WBC (Bld) 67.6 % Normal [facility] Comment on above: Order Comment: Speci men Type: BLOOD SPECIMEN Ordering [facility] Address: [address] [place] [address] Performed By: #### 5 7021-8 #### [facility] CLIA [id number] [address] [place] [address] [place] Nucleated RBC (Bld) [#/Vol] Normal [facility] Comment on above: Order Comment: Speci men Type: BLOOD SPECIMEN Order[facility] Address: [address] [place] [address] Performed By: #### 5 7021-8 #### [facility] CLIA [id number] [address] [place] [address] [place] Nucleated RBC/100 WBC (Bld) [Ratio] Normal [facility] Comment on above: Order Comment: Speci men Type: BLOOD SPECIMEN Order[facility]: [facility] Address: [address] [place] [address] Performed By: #### 5 7021-8 #### [facility] CLIA [id number] [address] [place] [address] [place] Platelet mean volume (Bld) [Entitic vol] 12.5 fL Normal 9.0-12.7 [facility] Comment on above: Order Comment: Speci men Type: BLOOD SPECIMEN Order[facility] Address: [address] [place] [address] Performed By: #### 5 7021-8 #### [facility] CLIA [id number] [address] [place] [address] [place] Platelets (Bld) [#/Vol] 146 10*3/uL Low 150-400 [facility] Comment on above: Order Comment: Speci men Type: BLOOD SPECIMEN Order[facility] Address: [address] [place] [address] Result Comment: Resu lts checked and verified.No clot detected.Reviewed. Performed By: #### 5 7021-8 #### [facility] CLIA [id number] [address] [place] [address] [place] RBC (Bld) [#/Vol] 4.32 10*6/uL Normal 3.90-5.20 [facility] Comment on above: Order Comment: Speci men Type: BLOOD SPECIMEN Ordering [facility]: [facility] Address: [address] [place] [address] Performed By: #### 5 7021-8 #### [facility] CLIA [id number] [address] [place] [address] [place] [facility] [place] WBC (Bld) [#/Vol] 7.46 10*3/uL Normal 3.70-11.00 [facility] Comment on above: Order Comment: Speci men Type: BLOOD SPECIMEN Ordering [facility]: [facility] Address: [address] [place] [address] Performed By: #### 5 7021-8 #### [facility] CLIA [id number] [address] [place], [place] [address] [employer] [place] Ferritin SerPl-mCncon 2024 Ferritin [Mass/Vol] 164.0 ng/mL Normal 14.7-205.1 [facility] Comment on above: Order Comment: Speci men Type: BLOOD SPECIMEN Ordering [facility]: [facility] Address: [address] [place] [address] Performed By: #### 2 276-4, 83669-5 #### [facility] CLIA [id number] [address] [employer] and Iron binding capaci ty panelon 09-04-2024 Iron [Mass/Vol] 68 ug/dL Normal 41-186 [facility] Comment on above: Order Comment: Speci men Type: BLOOD SPECIMEN Ordering [facility]: [facility] Address: [address] [place] [address] Performed By: #### 2 276-4, 52701-2 #### [facility] CLIA [id number] [address] Iron binding capacity [Mass/Vol] >568 High 232-386 [facility] Comment on above: Order Comment: Speci men Type: BLOOD SPECIMEN Ordering [facility]: [facility] Address: [address] [place] [address] Performed By: #### 2 276-4, 27727-6 #### [facility] CLIA [id number] [address] [place] [address] [place] Iron saturation [Mass fraction] <12.0 Low 15.0-57.0 [facility] Comment on above: Order Comment: Speci men Type: BLOOD SPECIMEN Order[facility] Address: [address] [place] [address] Performed By: #### 2 276-4, 41691-2 #### [facility] CLIA [id number] [address] [place] [address] [place] (ROM) Rupture Of Membraneson 08-03-2024 ROM Negative Normal Negative [facility] Comment on above: Result Comment: Amni otic fluid not present indicates No Rupture of Membranes at time of specimen collection. Performed By: #### L 205.1000 #### [facility] [address] [place], [place], [address] AST(SGOT)Ordered By: Prabhu Ortez on 08-03-2024 AST [Catalytic activity/Vol] 22 U/L Normal <=31 [facility] Comment on above: Performed By: #### L 501.4100, L100.0500, L501.4405, L501.1105, L501.1400, L501.0900 #### [facility] [address] [place], [place], [address] Automated blood erythrocyte countOrdered By: Prabhu Ortez on 08-03-2024 RBC (Bld) [#/Vol] 3.42 10*6/uL Low 4.2-5.4 [facility] Comment on above: Performed By: #### L 501.4100, L100.0500, L501.4405, L501.1105, L501.1400, L501.0900 #### [facility] [address] [place], [place], [address] Automated blood hematocrit ( percentage)Ordered By: Prabhu Ortez on 08-03-2024 Hematocrit (Bld) [Volume fraction] 28.5 % Low 37-47 [facility] Comment on above: Performed By: #### L 501.4100, L100.0500, L501.4405, L501.1105, L501.1400, L501.0900 #### [facility] [address] [place], [place], [address] CBC-Complete Blood Cnt No Di ffon 08-03-2024 RDW SD 42.0 fl Normal 35.1-43.9 [facility] Comment on above: Performed By: #### L 501.4100, L100.0500, L501.4405, L501.1105, L501.1400, L501.0900 #### [facility] [address] [place], [address] ECG 12 lead (Clinic Performe d)on 08-03-2024 Sinus rhythm with HR of 97bpm, QRS 72ms, QT 336ms and Bhu014dy *Please refer to scanned ECG for final report* [facility] Work Phone: Erythrocyte distribution wid th ratioOrdered By: Prabhu Ortez on 08-03-2024 Erythrocyte distribution width (RBC) [Ratio] 13.9 % Normal 11.6-14.6 [facility] Comment on above: Performed By: #### L 501.4100, L100.0500, L501.4405, L501.1105, L501.1400, L501.0900 #### [facility] [address] [place], [address] Erythrocyte distribution wid th standard deviationOrdered By: Prabhu Ortez on 08-03-2024 Erythrocyte distribution width (RBC) [Ratio] 42.0 fl 35.1-43.9 [facility] Glomerular filtration rate ( GFR) estimation/1.73 sq m using serum, plasma, or whole bOrdered By: Prabhu Ortez on 08-03-2024 GFR/1.73 sq M.predicted among non-blacks MDRD (S/P/Bld) [Vol rate/Area] 130 mL/min/{1.73_m2} Normal >60 [facility] Comment on above: mL/min/1.73m2 CKD-EP I Creatinine Equation (2020) Result Comment: mL/m in/1.73m2 CKD-EPI Creatinine Equation (2020) Performed By: #### L 501.4100, L100.0500, L501.4405, L501.1105, L501.1400, L501.0900 #### [facility] [address] [place], [place], [address] Hemoglobin measurementOrdere d By: Prabhu Ortez on 08-03-2024 Hemoglobin (Bld) [Mass/Vol] 8.9 g/dL Low 12.0-15.0 [facility] Comment on above: Performed By: #### L 501.4100, L100.0500, L501.4405, L501.1105, L501.1400, L501.0900 #### [facility] [address] [place], [place], [address] MCV (mean corpuscular volume ) determinationOrdered By: Prabhu Ortez on 08-03-2024 MCV (RBC) [Entitic vol] 83.3 fL Normal 81-99 [facility] Comment on above: Performed By: #### L 501.4100, L100.0500, L501.4405, L501.1105, L501.1400, L501.0900 #### [facility] [address] [place], [place], [address] Mean corpuscular hemoglobin (MCH) determinationOrdered By: Prabhu Ortez on 08-03-2024 MCH (RBC) [Entitic mass] 26.0 pg Low 27.0-32.0 [facility] Comment on above: Performed By: #### L 501.4100, L100.0500, L501.4405, L501.1105, L501.1400, L501.0900 #### [facility] [address] [place], [place], [address] Mean corpuscular hemoglobin concentration (MCHC) determinationOrdered By: Prabhu Ortez on 08-03-2024 MCHC (RBC) [Mass/Vol] 31.2 g/dL Low 32-[address] [facility] Comment on above: Performed By: #### L 501.4100, L100.0500, L501.4405, L501.1105, L501.1400, L501.0900 #### [facility] [address] [place], [address] Mean platelet volume determi nationOrdered By: Prabhu Ortez on 08-03-2024 Platelet mean volume (Bld) [Entitic vol] 12.4 fL High 6.2-12.0 [facility] Comment on above: Performed By: #### L 501.4100, L100.0500, L501.4405, L501.1105, L501.1400, L501.0900 #### [facility] [address] [place], [place], [address] OB Triage Physician Noteon 0 08-03-2024 OB Triage Physician Note [facility] Medical Records Department [address] [place] [address] OB Triage Physician Note 08/03/24 2107 MR#: [id number] Acct: [id number] Name: KEAGAN ALICIA Rep #: [id number] : 2000 23 From: Prabhu Ortez MD PCP: [facility] Status:DEP CLI Y Location: [facility] HPI - General General Date [...] Cosigner Signature (if applicable): Date _ CC: DIGITAL HARDWARE DESIGN ENGINEER-C Rachell Amador; Dr. Prabhu Ortez MD Signed Normal [facility] Platelet countOrdered By: Georgina Ortez on 08-03-2024 Platelets (Bld) [#/Vol] 124 10*3/uL Low 150-450 [facility] Comment on above: Performed By: #### L 501.4100, L100.0500, L501.4405, L501.1105, L501.1400, L501.0900 #### [facility] [address] [place], [address] Protein+Creatinine Ratio,Uri neon 08-03-2024 PROT:CRE RATIO 191 mg/g CRE Normal 0-200 [facility] Comment on above: Performed By: #### L 501.4100, L100.0500, L501.4405, L501.1105, L501.1400, L501.0900 #### [facility] [address] [place], [address] UR CREAT 65.30 mg/dL Normal 28.00-217.00 [facility] Comment on above: Performed By: #### L 501.4100, L100.0500, L501.4405, L501.1105, L501.1400, L501.0900 #### [facility] [address] [place], [address] Random urine creatinine reynaldo urement (mass/volume)Ordered By: Prabhu Ortez on 08-03-2024 Creatinine Unsp time (U) [Mass/Vol] 65.30 mg/dL 28.00-217.00 [facility] Serum Creatinine AND GFRon 0 08-03-2024 ECRCL 146.29 ml/min Normal 50-250 [facility] Comment on above: Performed By: #### L 501.4100, L100.0500, L501.4405, L501.1105, L501.1400, L501.0900 #### [facility] [address] [place], [address] Serum creatinine measurement (mass/volume)Ordered By: Prabhu Ortez on 08-03-2024 Creatinine [Mass/Vol] 0.61 mg/dL Low 0.70-1.[address] [facility] Comment on above: Performed By: #### L 501.4100, L100.0500, L501.4405, L501.1105, L501.1400, L501.0900 #### [facility] [address] [place], [address] Serum or plasma alanine walker otransferase (ALT) measurementOrdered By: Prabhu Ortez on 08-03-2024 ALT [Catalytic activity/Vol] 12 U/L Normal <=34 [facility] Comment on above: Performed By: #### L 501.4100, L100.0500, L501.4405, L501.1105, L501.1400, L501.0900 ####[facility] [address] [place], [address] Serum or plasma uric acid me asurement (mass/volume)Ordered By: Prabhu Ortez on 08-03-2024 Urate [Mass/Vol] 4.1 mg/dL 2.6-6.0 [facility] Comment on above: The drugs N-Acetylcy steine and Metamizole may falsely depress this assay. Uric Acidon 08-03-2024 URIC 4.1 mg/dL Normal 2.6-6.0 [facility] Comment on above: Result Comment: The drugs N-Acetylcysteine and Metamizole may falsely depress this assay. Performed By: #### L 501.4100, L100.0500, L501.4405, L501.1105, L501.1400, L501.0900 ####[facility] [address] [place], [address] Urine protein measurement (m ass/volume)Ordered By: Prabhu Ortez on 08-03-2024 Protein (U) [Mass/Vol] 12.5 mg/dL High 0.0-12.0 [facility] Comment on above: Performed By: #### L 501.4100, L100.0500, L501.4405, L501.1105, L501.1400, L501.0900 #### [facility] [address] [place], [address] Urine protein/creatinine mas s ratioOrdered By: Prabhu Ortez on 08-03-2024 Protein/Creatinine (U) [Mass ratio] 191 mg/g CRE 0-200 [facility] White blood cell (WBC) count Ordered By: Prabhu Ortez on 08-03-2024 WBC (Bld) [#/Vol] 7.1 10*3/uL Normal 4.4-11.0 [facility] Comment on above: Performed By: #### L 501.4100, L100.0500, L501.4405, L501.1105, L501.1400, L501.0900 #### [facility] [address] [place], [address] [facility] KEAGAN ALICIA ([id number]) 4 F Date Time Provider Department 07/28/24 [facility] During your visit today, we recorded [...] Status:Closed by JOSEFA RICKS on 07/28/24 Normal [facility] CBC W Auto Differential pane l (Bld)on 07-27-2024 Basophils (Bld) [#/Vol] 0.04 10*3/uL Normal <0.11 [facility] Comment on above: Order Comment: Speci men Type: BLOOD SPECIMENOrdering Facility: [facility] Address: [address] [place] [address] Performed By: #### 5 7021-8 ####[facility] MILLWMILIA [id number] [place] [address] [place] Basophils/100 WBC (Bld) 0.5 % Normal [facility] Comment on above: Order Comment: Speci men Type: BLOOD SPECIMENOrdering Facility: [facility] Address: [address] [place] [address] Performed By: #### 5 7021-8 ####[facility] DORALWMILIA [id number] [place] [address] [place] Differential cell count method Nom (Bld) Auto Normal [facility] Comment on above: Order Comment: Speci men Type: BLOOD SPECIMENOrdering Facility: [facility] Address: [address] [place] [address] Performed By: #### 5 7021-8 ####[facility] [id number] [place] [address] [place] Eosinophils (Bld) [#/Vol] 0.17 10*3/uL Normal <0.46 [facility] Comment on above: Order Comment: Speci men Type: BLOOD SPECIMENOrdering Facility: [facility] Address: [address] [place] [address] Performed By: #### 5 7021-8 ####[facility] [id number] [place] [address] [place] Eosinophils/100 WBC (Bld) 2.0 % Normal [facility] [facility] Comment on above: Order Comment: Speci men Type: BLOOD SPECIMENOrdering Facility: [facility] Address: [address] [place] [address] Performed By: #### 5 7021-8 ####[facility] [id number] [place] [address] [place] Erythrocyte distribution width (RBC) [Ratio] 13.5 % Normal 11.5-15.0 [facility] Comment on above: Order Comment: Speci men Type: BLOOD SPECIMENOrdering Facility: [facility] Address: [address] [place] [address] Performed By: #### 5 7021-8 ####[facility] DORALNCLI [id number] [place] [address] [place] Hematocrit (Bld) [Volume fraction] 29.7 % Low 36.0-46.0 [facility] Comment on above: Order Comment: Speci men Type: BLOOD SPECIMENOrdering Facility: [facility] Address: [address] [place] [address] Performed By: #### 5 7021-8 ####[facility] DORALNCA [id number] [place] [address] [place] Hemoglobin (Bld) [Mass/Vol] 9.5 g/dL Low 11.5-15.5 [facility] Comment on above: Order Comment: Speci men Type: BLOOD SPECIMENOrdering Facility: [facility] Address: [address] [place] [address] Performed By: #### 5 7021-8 ####[facility] [id number] [place] [address] [place] Immature granulocytes (Bld) [#/Vol] 0.17 10*3/uL High <0.10 [facility] Comment on above: Order Comment: Speci men Type: BLOOD SPECIMENOrdering Facility: [facility] Address: [address] [place] [address] Performed By: #### 5 7021-8 ####[facility] [id number] [place] [address] [place] [facility] Immature granulocytes/100 WBC (Bld) 2.0 % Normal [facility] Comment on above: Order Comment: Speci men Type: BLOOD SPECIMENOrdering Facility: [facility] Address: [address] [place] [address] Performed By: #### 5 7021-8 ####[facility] DORALNCLIA [id number] [place] [address] [place] Lymphocytes (Bld) [#/Vol] 1.41 10*3/uL Normal 1.00-4.00 [facility] Comment on above: Order Comment: Speci men Type: BLOOD SPECIMENOrdering Facility: [facility] Address: [address] [place] [address] Performed By: #### 5 7021-8 ####[facility] [id number] [place] [address] [place] Lymphocytes/100 WBC (Bld) 17.0 % Normal [facility] Comment on above: Order Comment: Speci men Type: BLOOD SPECIMENOrdering Facility: [facility] Address: [address] [place] [address] Performed By: #### 5 7021-8 ####[facility] [id number] [place] [address] [place] MCH (RBC) [Entitic mass] 26.8 pg Normal 26.0-34.0 [facility] Comment on above: Order Comment: Speci men Type: BLOOD SPECIMENOrdering Facility: [facility] Address: [address] [place] [address] Performed By: #### 5 7021-8 ####[facility] [id number] [place] [address] [place] MCHC (RBC) [Mass/Vol] 32.0 g/dL Normal 30.5-36.0 [facility] Comment on above: Order Comment: Speci men Type: BLOOD SPECIMENOrdering Facility: [facility] Address: [address] [place] [address] Performed By: #### 5 7021-8 ####[facility] DORALRADHANELLA [id number] [place] [address] [place] MCV (RBC) [Entitic vol] 83.7 fL Normal 80.0-100.0 [facility] Comment on above: Order Comment: Speci men Type: BLOOD SPECIMENOrdering Facility: [facility] Address: [address] [place] [address] Performed By: #### 5 7021-8 ####[facility] DORALANDRES [id number] [place] [address] [place] Monocytes (Bld) [#/Vol] 0.78 10*3/uL Normal <0.87 [facility] Comment on above: Order Comment: Speci men Type: BLOOD SPECIMENOrdering Facility: [facility] Address: [address] [place] [address] Performed By: #### 5 7021-8 ####[facility] DORALJAQUIA [id number] [place] [address] [place] Monocytes/100 WBC (Bld) 9.4 % Normal [facility] Comment on above: Order Comment: Speci men Type: BLOOD SPECIMENOrdering Facility: [facility] Address: [address] [place] [address] Performed By: #### 5 7021-8 ####[facility] [id number] [place] [address] [place] Neutrophils (Bld) [#/Vol] 5.73 10*3/uL Normal 1.45-7.50 [facility] Comment on above: Order Comment: Speci men Type: BLOOD SPECIMENOrdering Facility: [facility] Address: [address] [place] [address] Performed By: #### 5 7021-8 ####[facility] [id number] [place] [address] [place] Neutrophils/100 WBC (Bld) 69.1 % Normal [facility] Comment on above: Order Comment: Speci men Type: BLOOD SPECIMENOrdering Facility: [facility] Address: [address] [place] [address] Performed By: #### 5 7021-8 ####[facility] [id number] [place] [address] [place] Nucleated RBC (Bld) [#/Vol] 10*3/uL Normal <0.01 [facility] Comment on above: Order Comment: Speci men Type: BLOOD SPECIMENOrdering Facility: [facility] Address: [address] [place] [address] Performed By: #### 5 7021-8 ####[facility] [id number] [place] [address] [place] Nucleated RBC/100 WBC (Bld) [Ratio] 0.0 /100 WBC Normal [facility] Comment on above: Order Comment: Speci men Type: BLOOD SPECIMENOrdering Facility: [facility] Address: [address] [place] [address] Performed By: #### 5 7021-8 ####[facility] [id number] [place] [address] [place] Platelet mean volume (Bld) [Entitic vol] 12.0 fL Normal 9.0-12.7 [facility] Comment on above: Order Comment: Speci men Type: BLOOD SPECIMENOrdering Facility: [facility] Address: [address] [place] [address] Performed By: #### 5 7021-8 ####[facility] KRISTYANOKANCLIA [id number] [place] [address] [place] Platelets (Bld) [#/Vol] 150 10*3/uL Normal 150-400 [facility] Comment on above: Order Comment: Speci men Type: BLOOD SPECIMENOrdering Facility: [facility] Address: [address] [place] [address] Result Comment: No c lot detected. Performed By: #### 5 7021-8 ####[facility] DORALNCA [id number] [place] [address] [place] RBC (Bld) [#/Vol] 3.55 10*6/uL Low 3.90-5.20 [facility] Comment on above: Order Comment: Speci men Type: BLOOD SPECIMENOrdering Facility: [facility] Address: [address] [place] [address] Performed By: #### 5 7021-8 ####[facility] DORALNCLIA [id number] [place] [address] [place] WBC (Bld) [#/Vol] 8.30 10*3/uL Normal 3.70-11.00 [facility] Comment on above: Order Comment: Speci men Type: BLOOD SPECIMENOrdering Facility: [facility] Address: [address] [place] [address] Performed By: #### 5 7021-8 ####[facility] DORALNCLIA [id number] [place] [address] [place] Ferritin SerPl-mCncon 2024 Ferritin [Mass/Vol] 6.1 ng/mL Low 14.7-205.1 [facility] Comment on above: Order Comment: Speci men Type: BLOOD SPECIMENOrdering Facility: [facility] Address: [address] [place] [address] Performed By: #### 5 0190-8, 2275-05 ####[facility] LABCLIA [id number] [place] [address] [place] GESTATIONAL GLUCOSE SCREEN, 1-HOUR, 50 GRAM, NON-FASTINGon 07-27-2024 Glucose [Mass/Vol] 102 mg/dL Normal 74-134 [facility] Comment on above: Order Comment: Speci red Type: BLOOD SPECIMEN [facility] Address: [address] [place] [address] Result Comment: [facility] Congress of Obstetricians and Gynecologists (Ricki/Laurent) guidelines state a gestational diabetes mellitus positive screen is made, in women not previously diagnosed with overt diabetes, when the 1 hr plasma glucose level is equal to or above 140 mg/dL. The [facility] [employer] and [facility] [place] recommends a 135 mg/dL cutoff. Performed By: #### 5 7021-8 #### [facility]ENTERFIORDALIZA [facility] CLIA [id number] [address] [place] [address] [place] Iron and Iron binding capaci ty panelon 07-27-2024 Iron [Mass/Vol] 35 ug/dL Low 41-186 [facility] Comment on above: Order Comment: Kayli moon Type: BLOOD SPECIMENOrdering Facility: [facility] Address: [address] [place] [address] Performed By: #### 5 0190-8, 2275-05 ####[facility] LABCLIA [id number] [place] [address] [place] Iron binding capacity [Mass/Vol] >535 High 232-386 [facility] Comment on above: Order Comment: Kayli moon Type: BLOOD SPECIMENOrdering Facility: [facility] Address: [address] [place] [address] Performed By: #### 5 0190-8, 2275-05 ####[facility] LABCLIA [id number] [place] [address] [place] Iron/TIBC [Molar ratio] <6.5 Low 15.0-57.0 C [facility] Comment on above: Order Comment: Speci men Type: BLOOD SPECIMENOrdering Facility: [facility] Address: [address] [place] [address] Performed By: #### 5 0190-8, 2276-4 ####[facility] LABCLIA [id number] [place] [address] [place] Reagin and Treponema pallidu m IgG and IgM [Interp]on 07-27-2024 T. pallidum IgG+IgM IA Ql (S) Non-Reactive Normal Nonreactive [facility] Comment on above: Order Comment: Speci men Type: BLOOD SPECIMEN [facility] Address: [address] [place] [address] Performed By: #### 5 7021-8 #### JARETT [facility] CLIA [id number] [address] [place] [address] [place] Reagin+T pallidum IgG+IgM Se rPl-Impon 07-27-2024 Reagin and Treponema pallidum IgG and IgM [Interp] Cannot exclude recent Treponemal infection if specimen collected within 7-10 days after appearance of suspect lesions or 2-3 weeks after an exposure. Clinical correlation is required. Normal [facility] Comment on above: Order Comment: Speci men Type: BLOOD SPECIMEN [facility] Address: [address] [place] [address] Performed By: #### 5 7021-8 #### JARETT [facility] CLIA [id number] [address] [place] [address] [place] TYPE + SCREEN PRENATALon ABO A Normal [facility] Comment on above: Order Comment: Speci men Type: BLOOD SPECIMENOrdering Facility: [facility] Address: [address] [place] [address] Performed By: #### T SPN ####[facility] BLOOD BANKCLIA [id number] Rh Nom (Bld) Negative Normal [facility] Comment on above: Order Comment: Speci men Type: BLOOD SPECIMENOrdering Facility: [facility] Address: [address] [place] [address] Performed By: #### T SPN ####[facility] BLOOD BANKCLIA [id number] [address] TYPE AND SCREEN EXPIRATION 07/30/2024 23:59 Normal [facility] Comment on above: Order Comment: Speci men Type: BLOOD SPECIMENOrdering Facility: [facility] Address: [address] [place] [address] Performed By: #### T SPN ####[facility] BLOOD BANKCLIA [id number] [address] CNPNon 06-02-2024 CNPN Telephone (OGFVWE) KEAGAN ALICIA ([id number]) 4 F Date Time Provider Department 06/02/24 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 MATERNAL MEDICINE [facility] Radiology Study observation (narrative) [facility] Diego 05-10-2024 CNPN Telephone (OBGYWM) KEAGAN ALICIA ([id number]) 4 F Date Time Provider Department 05/10/24 PRABHU ORTEZ OBBILLWLilly During your visit today, we recorded the following information about you: Chantelle Marquis RN 05/10/2024 8:51 AM Signed Received breast pump RX from [employer]. To KJ to sign. KELLI Barrios Lindsey, [...] Status:Closed by ANTIONETTE WARD on 05/11/24 Normal [facility] CARRIER SCREEN, STANDARDon 0 04-07-2024 CARRIER SCREEN RESULTS View results in Scanned Documents link when available. Normal [facility] Comment on above: Order Comment: Speci men Type: BLOOD SPECIMEN [facility] Address: [address] [place] [address] Performed By: #### 5 7021-8 #### [facility] CLIA [id number] [address] [place] [address] [place] CBC W Auto Differential pane l (Bld)on 04-07-2024 Basophils (Bld) [#/Vol] 10*3/uL Normal <0.11 [facility] Comment on above: Order Comment: Speci men Type: BLOOD SPECIMENOrdering Facility: [facility] Address: [address] [place] [address] Performed By: #### 5 7021-8 ####[facility] MILLWNCLIA [id number] [place] [address] [place] Basophils/100 WBC (Bld) 0.4 % Normal C [facility] Comment on above: Order Comment: Speci men Type: BLOOD SPECIMENOrdering Facility: [facility] Address: [address] [place] [address] Performed By: #### 5 7021-8 ####[facility] MILLTOWNCLIA [id number] [place] [address] [place] Differential cell count method Nom (Bld) Auto Normal [facility] Comment on above: Order Comment: Speci men Type: BLOOD SPECIMENOrdering Facility: [facility] Address: [address] [place] [address] Performed By: #### 5 7021-8 ####[facility] MILLWNCLIA [id number] [place] [address] [place] Eosinophils (Bld) [#/Vol] 0.13 10*3/uL Normal <0.46 [facility] Comment on above: Order Comment: Speci men Type: BLOOD SPECIMENOrdering Facility: [facility] Address: [address] [place] [address] Performed By: #### 5 7021-8 ####[facility] [id number] [place] [address] [place] Eosinophils/100 WBC (Bld) 2.7 % Normal [facility] Comment on above: Order Comment: Speci men Type: BLOOD SPECIMENOrdering Facility: [facility] Address: [address] [place] [address] Performed By: #### 5 7021-8 ####[facility] DORALNCLIMario [id number] [place] [address] [place] Erythrocyte distribution width (RBC) [Ratio] 15.1 % High 11.5-15.0 [facility] Comment on above: Order Comment: Speci men Type: BLOOD SPECIMENOrdering Facility: [facility] Address: [address] [place] [address] Performed By: #### 5 7021-8 ####[facility] DORALNCLIA [id number] [place] [address] [place] Hematocrit (Bld) [Volume fraction] 35.5 % Low 36.0-46.0 [facility] Comment on above: Order Comment: Speci men Type: BLOOD SPECIMENOrdering Facility: [facility] Address: [address] [place] [address] Performed By: #### 5 7021-8 ####[facility] DORALNCLIA [id number] [place] [address] [place] Hemoglobin (Bld) [Mass/Vol] 12.0 g/dL Normal 11.5-15.5 [facility] Comment on above: Order Comment: Speci men Type: BLOOD SPECIMENOrdering Facility: [facility] Address: [address] [place] [address] Performed By: #### 5 7021-8 ####[facility] [id number] [place] [address] [place] Immature granulocytes (Bld) [#/Vol] 10*3/uL Normal <0.10 [facility] Comment on above: Order Comment: Speci men Type: BLOOD SPECIMENOrdering Facility: [facility] Address: [address] [place] [address] Performed By: #### 5 7021-8 ####[facility] [id number] [place] [address] [place] Immature granulocytes/100 WBC (Bld) 0.2 % Normal [facility] Comment on above: Order Comment: Speci men Type: BLOOD SPECIMENOrdering Facility: [facility] Address: [address] [place] [address] Performed By: #### 5 7021-8 ####[facility] [id number] [place] [address] [place] Lymphocytes (Bld) [#/Vol] 1.48 10*3/uL Normal 1.00-4.00 [facility] Comment on above: Order Comment: Speci men Type: BLOOD SPECIMENOrdering Facility: [facility] Address: [address] [place] [address] Performed By: #### 5 7021-8 ####[facility] [id number] [place] [address] [place] Lymphocytes/100 WBC (Bld) 30.5 % Normal [facility] Comment on above: Order Comment: Speci men Type: BLOOD SPECIMENOrdering Facility: [facility] Address: [address] [place] [address] Performed By: #### 5 7021-8 ####[facility] MILLLAKSHMIWNCLIA [id number] [place] [address] [place] MCH (RBC) [Entitic mass] 29.5 pg Normal 26.0-34.0 [facility] Comment on above: Order Comment: Speci men Type: BLOOD SPECIMENOrdering Facility: [facility] Address: [address] [place] [address] Performed By: #### 5 7021-8 ####[facility] DORALNCLIA [id number] [place] [address] [place] MCHC (RBC) [Mass/Vol] 33.8 g/dL Normal 30.5-36.0 [facility] Comment on above: Order Comment: Speci men Type: BLOOD SPECIMENOrdering Facility: [facility] Address: [address] [place] [address] Performed By: #### 5 7021-8 ####[facility] DORALNCLIA [id number] [place] [address] [place] MCV (RBC) [Entitic vol] 87.2 fL Normal 80.0-100.0 C [facility] Comment on above: Order Comment: Speci men Type: BLOOD SPECIMENOrdering Facility: [facility] Address: [address] [place] [address] Performed By: #### 5 7021-8 ####[facility] MILLWNCLIA [id number] [place] [address] [place] Monocytes (Bld) [#/Vol] 0.37 10*3/uL Normal <0.87 [facility] Comment on above: Order Comment: Speci men Type: BLOOD SPECIMENOrdering Facility: [facility] Address: [address] [place] [address] Performed By: #### 5 7021-8 ####[facility] DORALNCLIA [id number] [place] [address] [place] Monocytes/100 WBC (Bld) 7.6 % Normal [facility] Comment on above: Order Comment: Speci men Type: BLOOD SPECIMENOrdering Facility: [facility] Address: [address] [place] [address] Performed By: #### 5 7021-8 ####[facility] [id number] [place] [address] [place] Neutrophils (Bld) [#/Vol] 2.85 10*3/uL Normal 1.45-7.50 [facility] Comment on above: Order Comment: Speci men Type: BLOOD SPECIMENOrdering Facility: [facility] Address: [address] [place] [address] Performed By: #### 5 7021-8 ####[facility] [id number] [place] [address] [place] Neutrophils/100 WBC (Bld) 58.6 % Normal [facility] Comment on above: Order Comment: Speci men Type: BLOOD SPECIMENOrdering Facility: [facility] Address: [address] [place] [address] Performed By: #### 5 7021-8 ####[facility] [id number] [place] [address] [place] Nucleated RBC (Bld) [#/Vol] 10*3/uL Normal <0.01 [facility] Comment on above: Order Comment: Speci men Type: BLOOD SPECIMENOrdering Facility: [facility] Address: [address] [place] [address] Performed By: #### 5 7021-8 ####[facility] [id number] [place] [address] [place] Nucleated RBC/100 WBC (Bld) [Ratio] 0.0 /100 WBC Normal [facility] Comment on above: Order Comment: Speci men Type: BLOOD SPECIMENOrdering Facility: [facility] Address: [address] [place] [address] Performed By: #### 5 7021-8 ####[facility] KRISTYJoannNCDIEGO [id number] [place] [address] [place] Platelet mean volume (Bld) [Entitic vol] 11.5 fL Normal 9.0-12.7 [facility] Comment on above: Order Comment: Speci men Type: BLOOD SPECIMENOrdering Facility: [facility] Address: [address] [place] [address] Performed By: #### 5 7021-8 ####[facility] DORALNCNELL [id number] [place] [address] [place] Platelets (Bld) [#/Vol] 180 10*3/uL Normal 150-400 [facility] Comment on above: Order Comment: Speci men Type: BLOOD SPECIMENOrdering Facility: [facility] Address: [address] [place] [address] Performed By: #### 5 7021-8 ####[facility] DORALNCLIA [id number] [place] [address] [place] RBC (Bld) [#/Vol] 4.07 10*6/uL Normal 3.90-5.20 [facility] Comment on above: Order Comment: Speci men Type: BLOOD SPECIMENOrdering Facility: [facility] Address: [address] [place] [address] Performed By: #### 5 7021-8 ####[facility] DORALNCLIA [id number] [place] [address] [place] WBC (Bld) [#/Vol] 4.86 10*3/uL Normal 3.70-11.00 [facility] Comment on above: Order Comment: Speci men Type: BLOOD SPECIMENOrdering Facility: [facility] Address: [address] [place] [id number] Performed By: #### 5 7021-8 ####[facility] CASTELANANDRES [id number] [place] [id number] [place] Examination level ultrasound on 04-07-2024 Indication First trimester anatomic survey Impression REMOTE READ The patient is referred for a first trimester anatomy scan including nuchal translucency measurement as clinically indicated. - Single, live, intrauterine . - [place] rump length measurement is consistent with the [...] view: normal 4-chamber view with color: normal 6-mwvrol-fwjwlqr view: normal Abdominal cord insertion: normal Stomach: [...] Read By: Michelle Choe M.D. MATERNAL MEDICINE [facility] Radiology Study observation (narrative) [facility] HBV surface Ag Ser Qlon 03-14 HBV surface Ag Ql (S) Negative Normal Negative [facility] Comment on above: Order Comment: Speci men Type: BLOOD SPECIMENOrdering Facility: [facility] Address: [address] [place] [address] Performed By: #### 7 3752-8, 66218-6, 5195-3 ####[facility] LABCLIA [id number] [place] [address] [place] HCV Ab Ser Qlon 04-07-2024 HCV Ab Ql (S) Negative Normal Negative [facility] Comment on above: Order Comment: Speci men Type: BLOOD SPECIMEN [facility] Address: [address] [place] [address] Result Comment: The result suggests no evidence of active infection with Hepatitis C virus. Should recent infection be suspected, repeat testing may be considered 4-6 weeks after this draw. Performed By: #### 5 7021-8 #### JARETT [facility] CLIA [id number] [address] [place] [address] [place] HGB ELECTROPHORESIS FOR EVAL (LAB ORDER)on 04-07-2024 Hemoglobin A (Bld) [Mass fraction] 97.7 % Normal 96.2-98.0 [facility] Comment on above: Order Comment: Speci men Type: BLOOD SPECIMENOrdering Facility: [facility] Address: [address] [place] [address] Performed By: #### L [id number], HGBELEV ####[facility] LABCLIA [id number] [place] [id number] [place] Hemoglobin A2 (Bld) [Mass fraction] 2.3 % Normal 2.0-3.1 [facility] Comment on above: Order Comment: Speci men Type: BLOOD SPECIMENOrdering Facility: [facility] Address: [address] [place] [address] Performed By: #### L [id number], HGBELEV ####[facility] AKRONIA [id number] [place] [address] [place] Hemoglobin Unsp Elph (Bld) [Mass fraction] No abnormal hemoglobin identified. Normal No abnormal hemoglobin identified. [facility] Comment on above: Order Comment: Speci men Type: BLOOD SPECIMENOrdering Facility: [facility] Address: [address] [place] [address] Performed By: #### L [id number], HGBELEV ####[facility] [facility] [id number] [place] [address] [place] HGB EVALUATION CASCADE INTER Wilfredo 04-07-2024 Hemoglobin pattern (Bld) [Interp] Reviewed by Neelima Yusuf MD Normal [facility] Comment on above: Order Comment: Speci men Type: BLOOD SPECIMENOrdering Facility: [facility] Address: [address] [place] [address] Performed By: #### L [id number], HGBELEV ####[facility] [id number] [place] [id number] [place] INTERPRETATION (HGB EVAL) Normal [facility] Comment on above: Order Comment: Speci men Type: BLOOD SPECIMENOrdering Facility: [facility] Address: [address] [place] [address] Result Comment: Hemo globins were analyzed by capillary electrophoresis and CBC red cell parameters were reviewed. No abnormal hemoglobin is identified. There is a normal hemoglobin capillary electrophoresis pattern. Performed By: #### L [id number], HGBELEV ####[facility] [id number] [place] [address] [place] HIV 1+2 Ab IA Qlon 5 HIV 1 and 2 Ab IA.rapid Nom (S/P/Bld) Normal [facility] Comment on above: Order Comment: Speci men Type: BLOOD SPECIMENOrdering Facility: [facility] Address: [address] [place] [address] Result Comment: Test not indicated. Performed By: #### 7 3752-8, 79158-2, 5195-3 ####[facility] [id number] [place] [address] [place] HIV 1+2 Ab+HIV1 p24 Ag IA Ql Non-Reactive Normal Nonreactive [facility] Comment on above: Order Comment: Speci men Type: BLOOD SPECIMENOrdering Facility: [facility] Address: [address] [place] [address] Performed By: #### 7 3752-8, 22021-9, 5195-3 ####[facility] [id number] [place] [address] [place] HIV immunoassay testing algorithm interpretation (S/P/Bld) [Interp] Normal [facility] Comment on above: Order Comment: Speci men Type: BLOOD SPECIMENOrdering Facility: [facility] Address: [address] [place] [address] Result Comment: No e vidence of HIV-1 or HIV-2 infection. Should recent infection be suspected, repeat testing may be considered 2-3 weeks after this draw. [place] Rev. Code 3701.243(E): This information has been [...] or diagnoses. Performed By: #### 7 3752-8, 13888-0, 5195-3 ####[facility] [id number] [place] [id number] [employer] OF [place] HbA1c (Bld)on 04-07-2024 Average glucose Estimated from glycated hemoglobin (Bld) [Mass/Vol] 88 mg/dL Normal [facility] Comment on above: Order Comment: Speci men Type: BLOOD SPECIMENOrdering Facility: [facility] Address: [address] [place] [address] Result Comment: eAG: (Estimated average glucose) is a calculated value from HgbA1c and is sales representative sales manager of the average blood glucose level in the last 2-3 month period. Performed By: #### 5 5454-3 ####[facility]IA [id number] [address] STATES [facility] HbA1c (Bld) [Mass fraction] 4.7 % Normal 4.3-5.6 [facility] Comment on above: Order Comment: Kayli red Type: BLOOD SPECIMENOrdering Facility: [facility] Address: [address] [place] [address] Result Comment: Amer ican Diabetes Association guidelines indicate that patients with HgbA1c in the range 5.7-6.4% are at increased risk for development of diabetes, and intervention by lifestyle modification may be beneficial. HgbA1c greater or equal to 6.5% is considered diagnostic of diabetes. Performed By: #### 5 5454-3 ####[facility] LABIA [id number] [place] [id number] [place] [id number] PLUSon 04-07-2024 Cell-free DNA./Cell-free DNA.total Dosage of chromosome-specific cfDNA (cfDNA) [Molar fraction] 23% Normal [facility] Comment on above: Order Comment: Speci men Type: BLOOD SPECIMEN [facility] Address: [address] [place] [address] Performed By: #### 5 7021-8 #### [facility] CLIA [id number] [address] [place] [address] Chr 13+18+21+X+Y aneuploidy Dosage of chromosome-specific cfDNA Ql (cfDNA) Negative Normal [facility] Comment on above: Order Comment: Speci men Type: BLOOD SPECIMEN [facility] Address: [address] [place] [address] Performed By: #### 5 7021-8 #### [facility] CLIA [id number] [address] [place] [address] Chr 21 trisomy Dosage of chromosome-specific cfDNA Ql (cfDNA) Negative Normal [facility] Comment on above: Order Comment: Speci men Type: BLOOD SPECIMEN [facility] Address: [address] [place] [address] Performed By: #### 5 7021-8 #### [facility] CLIA [id number] [address] [place] [address] Chr X and Y aneuploidy risk Sequencing Ql (cfDNA) [Interp] Not detected Normal [facility] Comment on above: Order Comment: Speci men Type: BLOOD SPECIMEN [facility] Address: [address] [place] [address] Result Comment: Not Detected Not Detected Performed By: #### 5 7021-8 #### [facility] CLIA [id number] [address] [place] [address] Citation Shemar (Reference lab test) Comment Normal [facility] Comment on above: Order Comment: Speci men Type: BLOOD SPECIMEN [facility] Address: [address] [place] [address] Result Comment: 1. P fay OLEA, et al. Bere Med. 2012;14(3):296-305. 2. Ben BELL et al. Prenat Diag. 2013;33(6):591-597. 3. Chad C, et al. Clin Chem. 2015 Apr;61(4):608-616. 4. Tania OLEA et al. Bere Med. 2011;13(11):913-920. 5. ACOG/SMFM Practice Bulletin No. 226, Nov 2019. Performed By: #### 5 7021-8 #### [facility] CLIA [id number] [address] [place] [address] Gestational age Estimated from conception date Carney Normal [facility] Comment on above: Order Comment: Lindai men Type: BLOOD SPECIMEN [facility] Address: [address] [place] [address] Performed By: #### 5 7021-8 #### [facility] CLIA [id number] [address] [place] [address] GESTATIONALAGE AGE > OR = 9W Yes Normal [facility] Comment on above: Order Comment: Kayli moon Type: BLOOD SPECIMEN [facility] Address: [address] [place] [address] Performed By: #### 5 7021-8 #### [facility] CLIA [id number] [address] [place] [address] Laboratory comment Shemar (Report) Comment Normal [facility] Comment on above: Order Comment: Kayli moon Type: BLOOD SPECIMEN [facility] Address: [address] [place] [address] Result Comment: The MaterniT(R) 21 PLUS laboratory-developed [...] Performed By: #### 5 7021-8 #### [facility] CLIA [id number] [address] [place] [address] reading efficiency course director name Nom (Provider) Comment Normal [facility] Comment on above: Order Comment: Kayli moon Type: BLOOD SPECIMEN [facility] Address: [address] [place], [place] [address], [place] [address] Result Comment: This specimen showed an expected representation of chromosome 21, 18 and 13 material. Clinical correlation is suggested. Comment Vasyl Rocha MD, PhD, Director, [employer] Performed By: #### 5 7021-8 #### [facility] CLIA [id number] [address] [place] [address] [place] LIMITATIONS OF THE TEST Comment Normal [facility] Comment on above: Order Comment: Speci men Type: BLOOD SPECIMEN [facility] Address: [address] [place] [address] Result Comment: Whil e the results of [...] Fragmin(R)). Performed By: #### 5 7021-8 #### [facility] CLIA [id number] [address] [place] [address] Monosomy X risk Dosage of chromosome-specific cfDNA Ql (Plasma cell-free+WBC DNA) [Interp] Not detected Normal [facility] Comment on above: Order Comment: Kayli moon Type: BLOOD SPECIMEN [facility] Address: [address] [place] [address] Performed By: #### 5 7021-8 #### [facility] CLIA [id number] [address] [place] [address] NEGATIVE PREDICTIVE VALUE Note Normal [facility] Comment on above: Order Comment: Kayli moon Type: BLOOD SPECIMEN [facility] Address: [address] [place] [address] Result Comment: The Negative Predictive Value (NPV) for trisomy 21, 18, and 13 is greater than 99%. The NPV for SCA and ESS cannot be calculated as SCA and ESS are only reported when an abnormality is detected. Performed By: #### 5 7021-8 #### [facility] CLIA [id number] [address] [place] [address] PERFORMANCE CHARACTERISTICS Note Normal [facility] Comment on above: Order Comment: Kayli moon Type: BLOOD SPECIMEN [facility] Address: [address] [place] [address] Result Comment: ! Sex ! Accuracy: 99.4% [...] ! ! ! * As reported in [facility] database nstd37 [https://www.ncbi.nlm.nih.gov/dbvar/studies/nstd37/ ] # Estimated [...] Performed By: #### 5 7021-8 #### [facility] CLIA [id number] [address] [place] [address] POSITIVE PREDICTIVE VALUE N/A Normal [facility] Comment on above: Order Comment: Speci men Type: BLOOD SPECIMEN [facility] Address: [address] [place] [address] Performed By: #### 5 7021-8 #### [facility] CLIA [id number] [address] [place] [address] Reference Lab Test Method Comment Normal [facility] Comment on above: Order Comment: Speci men Type: BLOOD SPECIMEN [facility] Address: [address] [place] [address] Result Comment: See Notes Circulating cell-free DNA [...] 22. Performed By: #### 5 7021-8 #### [facility] CLIA [id number] [address] [place] [address] OF [place] Service comment (Unsp spec) [Interp] Comment Normal [facility] Comment on above: Order Comment: Speci men Type: BLOOD SPECIMEN [facility] Address: [address] [place] [address] Result Comment: See Notes [employer] is a subsidiary of [employer], using the brand [employer] This test was developed and its performance characteristics determined by [employer] It has not been cleared or approved by the Food and Drug Administration. This laboratory is certified under the Clinical Laboratory Improvement Amendments (CLIA) as qualified to perform high complexity clinical laboratory testing and accredited by the College of [employer] (CAP). If there is future clinical need for adding MaterniT GENOME testing, this specimen will be available until term. [facility] samples will not be retained beyond 60 days. [facility] patients will have to send a new sample for re-sequencing ([facility] Test Code: 693322). Performed By: #### 5 7021-8 #### [facility] CLIA [id number] [address] [place] [address] [place] Sex Dosage of chromosome-specific cfDNA Nom (cfDNA) Comment Normal [facility] Comment on above: Order Comment: Speci men Type: BLOOD SPECIMEN [facility] Address: [address] [place] [address] Result Comment: Cons istent with Female Performed By: #### 5 7021-8 #### [facility] CLIA [id number] [address] [place] [address] STATES [facility] Test performance information Shemar (Unsp spec) Comment Normal [facility] Comment on above: Order Comment: Speci men Type: BLOOD SPECIMEN [facility] Address: [address] [place] [address] Result Comment: The performance characteristics of the MaterniT(R) 21 PLUS laboratory-developed test (LDT) have been determined in a clinical validation study with women at increased risk for chromosomal aneuploidy.[1-4] Performed By: #### 5 7021-8 #### [facility] CLIA [id number] [address] [place] [address] [place] Trisomy 13 risk Dosage of chromosome-specific cfDNA Ql (cfDNA) [Interp] Negative Normal [facility] Comment on above: Order Comment: Speci men Type: BLOOD SPECIMEN [facility] Address: [address] [place] [address] Performed By: #### 5 7021-8 #### JARETT [facility] CLIA [id number] [address] [place] [address] [place] [facility] Trisomy 18 risk Dosage of chromosome-specific cfDNA Ql (Plasma cell-free+WBC DNA) [Interp] Negative Normal [facility] Comment on above: Order Comment: Speci men Type: BLOOD SPECIMEN [facility] Address: [address] [place] [address] Performed By: #### 5 7021-8 #### [facility] CLIA [id number] [address] [place] [address] [place] RBC PARAMETERS FOR HB IDon 0 - Erythrocyte distribution width (RBC) [Ratio] 15.5 % High 11.5-15.0 [facility] Comment on above: Order Comment: Speci men Type: BLOOD SPECIMENOrdering Facility: [facility] Address: [address] [place] [address] Performed By: #### L [id number] ####[facility] [id number] [place] [address] [place] Hematocrit (Bld) [Volume fraction] 38.0 % Normal 36.0-46.0 [facility] Comment on above: Order Comment: Speci men Type: BLOOD SPECIMENOrdering Facility: [facility] Address: [address] [place] [address] Performed By: #### L [id number] ####[facility] [id number] [place] [address] [place] Hemoglobin (Bld) [Mass/Vol] 12.5 g/dL Normal 11.5-15.5 [facility] Comment on above: Order Comment: Speci men Type: BLOOD SPECIMENOrdering Facility: [facility] Address: [address] [place] [address] Performed By: #### L [id number] ####[facility] [id number] [place] [address] [place] MCH (RBC) [Entitic mass] 29.4 pg Normal 26.0-34.0 [facility] Comment on above: Order Comment: Speci men Type: BLOOD SPECIMENOrdering Facility: [facility] Address: [address] [place] [address] Performed By: #### L [id number] ####[facility] [id number] [place] [address] [place] MCHC (RBC) [Mass/Vol] 32.9 g/dL Normal 30.5-36.0 [facility] Comment on above: Order Comment: Speci men Type: BLOOD SPECIMENOrdering Facility: [facility] Address: [address] [place] [address] Performed By: #### L [id number] ####[facility] [id number] [address] [place] OF [place] MCV (RBC) [Entitic vol] 89.4 fL Normal 80.0-100.0 C [facility] Comment on above: Order Comment: Speci men Type: BLOOD SPECIMENOrdering Facility: [facility] Address: [address] [place] [address] Performed By: #### L [id number] ####[facility] [id number] [place] [address] [place] RBC (Bld) [#/Vol] 4.25 10*6/uL Normal 3.90-5.20 [facility] Comment on above: Order Comment: Speci men Type: BLOOD SPECIMENOrdering Facility: [facility] Address: [address] [place] [address] Performed By: #### L [id number] ####[facility]IA [id number] [address] OF [place] RUBELLA IGG ANTIBODYon 04-07 RUBELLA IGG AB, QUAL Positive Normal Positive [facility] Comment on above: Order Comment: Kayli moon Type: BLOOD SPECIMENOrdering Facility: [facility] Address: [address] [place] [address] Result Comment: The result suggests recent or past exposure to Rubella virus or history of Rubella vaccination. Positive result may also be seen due to presence of passively-transferred antibodies. Please correlate with patient's history. Performed By: #### R UBIGG ####[facility] [id number] [place] [address] [place] Reagin and Treponema pallidu m IgG and IgM [Interp]on 04-07-2024 T. pallidum IgG+IgM IA Ql (S) Non-Reactive Normal Nonreactive [facility] Comment on above: Order Comment: Kayli moon Type: BLOOD SPECIMENOrdering Facility: [facility] Address: [address] [place] [address] Performed By: #### 7 3752-8, 13079-7, 5195-3 ####[facility] [id number] [place] [address] [place] Reagin+T pallidum IgG+IgM Se rPl-Impon 04-07-2024 Reagin and Treponema pallidum IgG and IgM [Interp] Cannot exclude recent Treponemal infection if specimen collected within 7-10 days after appearance of suspect lesions or 2-3 weeks after an exposure. Clinical correlation is required. Normal [facility] Comment on above: Order Comment: Kayli moon Type: BLOOD SPECIMENOrdering Facility: [facility] Address: [address] [place] [address] Performed By: #### 7 3752-8, 67726-5, 5195-3 ####[facility] [id number] [place] [id number] [place] TYPE + SCREEN PRENATALon ABO A Normal [facility] Comment on above: Order Comment: Speci men Type: BLOOD SPECIMENOrdering Facility: [facility] Address: [address] [place] [address] Performed By: #### T SPN ####[facility] BANKCLIA [id number] [address] Rh Nom (Bld) Negative Normal [facility] Comment on above: Order Comment: Speci men Type: BLOOD SPECIMENOrdering Facility: [facility] Address: [address] [place] [address] Performed By: #### T SPN ####[facility] BANKCLIA [id number] [address] TYPE AND SCREEN EXPIRATION 04/10/2024 23:59 Normal [facility] Comment on above: Order Comment: Speci men Type: BLOOD SPECIMENOrdering Facility: [facility] Address: [address] [place] [address] Performed By: #### T SPN ####[facility]LO[facility] BANKCLIA [id number] [address] CNPSharlene 03-11-2024 [facility] Telephone ([id number]) KEAGAN ALICIA ([id number]) 4 F Date Time Provider Department 03/11/24 CHANTELLE RODRIGUEZ [id number] During your visit today, we recorded the following information about you: Chantelle Rodriguez RN 03/11/2024 10:56 AM Signed 1st risk assessment form submitted 03/11/2024. Chantelle Rodriguez RN Allergies As of Date: 03/11/2024 Noted Allergy Reaction LATEX 07/02/2023 9 - Itching Date Reviewed: 03/10/2024 Reviewed by: Mitra Camargo RN - Fully Assessed Reason for Visit: [employer] - Other [3602] Cmt: CRYSTAL Prescriptions as [...] Status:Closed by CHANTELLE RODRIGUEZ on 03/11/24 Normal [facility] BACTERIAL VAGINOSIS NAATon 0 03-10-2024 Interpretation and review of laboratory results Normal [facility] Lactobacillus crispatus+gasseri+jense mednoza + Gardnerella vaginalis + Atopobium vaginae rRNA SHYAM+probe Ql (Vag fld) Not detected Not detected [facility] Bacteria Ur Culton Bacteria identified Cx Nom (U) CULTURE, URINE: No growth (<1,000 CFU/ml) Normal [facility] Comment on above: Performed By: #### 6 30-4 ####[facility]ORYCLIA [id number] [place] [address] [place] C. trachomatis+N. gonorrhoea e DNA SHYAM+probe Ql (Unsp spec)on 03-10-2024 C. trachomatis rRNA SHYAM+probe Ql (Unsp spec) Not detected Not detected [facility] Interpretation and review of laboratory results Normal [facility] N. gonorrhoeae rRNA SHYAM+probe Ql (Unsp spec) Not detected Not detected [facility] This FDA-approved assay has been modified to accept rectal swabs self-collected in a healthcare setting. For self-collected rectal swabs, the test was developed and its performance characteristics determined by the [facility]'s [facility] Medicine [place] ([facility]). It has not been cleared or approved by the FDA. -[facility] is regulated under CLIA as qualified to perform high-complexity testing. This test is used for clinical purposes. It should not be regarded as investigational or for research. [facility] ALMITA/TRICHOMONAS NAATon 0 03-10-2024 C. glabrata RNA SHYAM+probe Ql (Vag fld) Not detected Not detected [facility] [place] sp DNA SHYAM+probe Ql (Vag fld) Not detected Not detected [facility] Comment on above: The [place] species group target includes C. albicans, C. tropicalis, C. parapsilosis, and C. dubliniensis. Interpretation and review of laboratory results Normal [facility] T. vaginalis DNA SHYAM+probe Ql (Unsp spec) Not detected Not detected [facility] CBC W Auto Differential pane l (Bld)on 03-10-2024 Basophils (Bld) [#/Vol] 10*3/uL Normal <0.11 A [facility] Comment on above: Order Comment: Speci men Type: BLOOD SPECIMENOrdering Facility: [facility] Address: [address] [place] [address] Performed By: #### 5 7021-8 ####[facility] [place] LABCLIA [id number] [place] [address] [place] Basophils/100 WBC (Bld) 0.4 % Normal A [facility] Comment on above: Order Comment: Speci men Type: BLOOD SPECIMENOrdering Facility: [facility] Address: [address] [place] [address] Performed By: #### 5 7021-8 ####[facility] [place] LABCLIA [id number] [place] [address] [place] Differential cell count method Nom (Bld) Auto Normal [facility] Comment on above: Order Comment: Speci men Type: BLOOD SPECIMENOrdering Facility: [facility] Address: [address] [place] [address] Performed By: #### 5 7021-8 ####[facility] [place] LABCLIA [id number] [place] [address] [place] Eosinophils (Bld) [#/Vol] 10*3/uL Normal <0.46 [facility] Comment on above: Order Comment: Speci men Type: BLOOD SPECIMENOrdering Facility: [facility] Address: [facility] [place] [address] Performed By: #### 5 7021-8 ####[facility] [place] LABCLIA [id number] [place] [address] [place] Eosinophils/100 WBC (Bld) 0.7 % Normal [facility] Comment on above: Order Comment: Speci men Type: BLOOD SPECIMENOrdering Facility: [facility] Address: [address] [place] [address] Performed By: #### 5 7021-8 ####[facility] [place] LABCLIA [id number] [place] [address] [place] Erythrocyte distribution width (RBC) [Ratio] 13.9 % Normal 11.5-15.0 [facility] Comment on above: Order Comment: Speci men Type: BLOOD SPECIMENOrdering Facility: [facility] Address: [address] [place] [address] Performed By: #### 5 7021-8 ####[facility] [place] LABCLIA [id number] [place] [address] [place] Hematocrit (Bld) [Volume fraction] 38.6 % Normal 36.0-46.0 [facility] Comment on above: Order Comment: Speci men Type: BLOOD SPECIMENOrdering Facility: [facility] Address: [address] [place] [address] Performed By: #### 5 7021-8 ####[facility] LABCL[facility] [id number] [facility] [place] [place] [address] [place] Hemoglobin (Bld) [Mass/Vol] 12.7 g/dL Normal 11.5-15.5 [facility] Comment on above: Order Comment: Speci men Type: BLOOD SPECIMENOrdering Facility: [facility] Address: [address] [place] [address] Performed By: #### 5 7021-8 ####[place] [facility] [id number] [facility] [place] [place] [address] [place] Immature granulocytes (Bld) [#/Vol] 10*3/uL Normal <0.10 [facility] Comment on above: Order Comment: Speci men Type: BLOOD SPECIMENOrdering Facility: [facility] Address: [address] [place] [address] Performed By: #### 5 7021-8 ####[facility] [id number] [place] [address] [facility] Immature granulocytes/100 WBC (Bld) 0.0 % Normal [facility] Comment on above: Order Comment: Speci men Type: BLOOD SPECIMENOrdering Facility: [facility] Address: [address] [place] [address] Performed By: #### 5 7021-8 ####[facility] [id number] [place] [address] [place] [facility] Lymphocytes (Bld) [#/Vol] 0.65 10*3/uL Low 1.00-4.00 [facility] Comment on above: Order Comment: Speci men Type: BLOOD SPECIMENOrdering Facility: [facility] Address: [address] [place] [address] Performed By: #### 5 7021-8 ####[facility] [id number] [place] [address] [facility] Lymphocytes/100 WBC (Bld) 22.9 % Normal [facility] Comment on above: Order Comment: Speci men Type: BLOOD SPECIMENOrdering Facility: [facility] Address: [address] [place] [address] Performed By: #### 5 7021-8 ####[facility] [id number] [place] [address] [place] MCH (RBC) [Entitic mass] 28.9 pg Normal 26.0-34.0 [facility] Comment on above: Order Comment: Speci men Type: BLOOD SPECIMENOrdering Facility: [facility] Address: [address] [place] [address] Performed By: #### 5 7021-8 ####[facility] [id number] [place] [address] [place] [facility] MCHC (RBC) [Mass/Vol] 32.9 g/dL Normal 30.5-36.0 [facility] Comment on above: Order Comment: Speci men Type: BLOOD SPECIMENOrdering Facility: [facility] Address: [address] [place] [address] Performed By: #### 5 7021-8 ####[facility] LABCLIA [id number] [facility] [place] [address] [place] MCV (RBC) [Entitic vol] 87.9 fL Normal 80.0-100.0 [facility] Comment on above: Order Comment: Speci men Type: BLOOD SPECIMENOrdering Facility: [facility] Address: [address] [place] [address] Performed By: #### 5 7021-8 ####[facility] LABCLIA [id number] [facility] [place] [address] [place] Monocytes (Bld) [#/Vol] 0.35 10*3/uL Normal <0.87 [facility] Comment on above: Order Comment: Speci men Type: BLOOD SPECIMENOrdering Facility: [facility] Address: [address] [place] [address] Performed By: #### 5 7021-8 ####[facility] LABCLIA [id number] [place] [address] [place] Monocytes/100 WBC (Bld) 12.3 % Normal [facility] Comment on above: Order Comment: Speci men Type: BLOOD SPECIMENOrdering Facility: [facility] Address: [address] [place] [address] Performed By: #### 5 7021-8 ####[facility] LABCLIA [id number] [facility] [place] [address] [place] Neutrophils (Bld) [#/Vol] 1.81 10*3/uL Normal 1.45-7.50 [facility] Comment on above: Order Comment: Speci men Type: BLOOD SPECIMENOrdering Facility: [facility] Address: [address] [place] [address] Performed By: #### 5 7021-8 ####[facility] [id number] [facility] [place] [address] [place] Neutrophils/100 WBC (Bld) 63.7 % Normal [facility] Comment on above: Order Comment: Speci men Type: BLOOD SPECIMENOrdering Facility: [facility] Address: [address] [place] [address] Performed By: #### 5 7021-8 ####[facility] [id number] [facility] [place] [address] [place] Nucleated RBC (Bld) [#/Vol] Normal [facility] Comment on above: Order Comment: Speci men Type: BLOOD SPECIMENOrdering Facility: [facility] Address: [address] [place] [address] Performed By: #### 5 7021-8 ####[facility] LABCLIA [id number] [place] [address] [place] Nucleated RBC/100 WBC (Bld) [Ratio] Normal [facility] Comment on above: Order Comment: Speci men Type: BLOOD SPECIMENOrdering Facility: [facility] Address: [address] [place] [address] Performed By: #### 5 7021-8 ####[facility] LABCLIA [id number] [facility] [place] [address] [place] Platelet mean volume (Bld) [Entitic vol] 12.0 fL Normal 9.0-12.7 [facility] Comment on above: Order Comment: Speci men Type: BLOOD SPECIMENOrdering Facility: [facility] Address: [address] [place] [address] Performed By: #### 5 7021-8 ####[facility] [id number] [place] [address] [place] Platelets (Bld) [#/Vol] 140 10*3/uL Low 150-400 [facility] Comment on above: Order Comment: Speci men Type: BLOOD SPECIMENOrdering Facility: [facility] Address: [address] [place] [address] Performed By: #### 5 7021-8 ####[facility]CLIA [id number] [place] [address] [facility] RBC (Bld) [#/Vol] 4.39 10*6/uL Normal 3.90-5.20 [facility] Comment on above: Order Comment: Speci men Type: BLOOD SPECIMENOrdering Facility: [facility] Address: [address] [place] [address] Performed By: #### 5 7021-8 ####[facility]CLIA [id number] [place] [address] [facility] WBC (Bld) [#/Vol] 2.84 10*3/uL Low 3.70-11.00 [facility] Comment on above: Order Comment: Speci men Type: BLOOD SPECIMENOrdering Facility: [facility] Address: [address] [place] [address] Performed By: #### 5 7021-8 ####[facility] [id number] [place] [address] [facility] Comprehensive metabolic 2000 panelon 03-10-2024 Albumin [Mass/Vol] 4.0 g/dL Normal 3.9-4.9 [facility] Comment on above: Order Comment: Speci men Type: BLOOD SPECIMEN [facility] Address: [address] [place] [address] Performed By: #### 2 4323-8 #### [facility] CLIA [id number] [address] [place] [address] [facility] ALP [Catalytic activity/Vol] 53 U/L Normal 34-123 [facility] Comment on above: Order Comment: Speci men Type: BLOOD SPECIMEN [facility] Address: [address] [place] [address] Performed By: #### 2 4323-8 #### [facility] CLIA [id number] [address] [place] [address] [place] ALT With P-5'-P [Catalytic activity/Vol] 21 U/L Normal 7-38 [facility] Comment on above: Order Comment: Speci men Type: BLOOD SPECIMEN [facility] Address: [address] [place] [address] Performed By: #### 2 4323-8 #### [facility] CLIA [id number] [address] [place] [address] [place] Anion gap [Moles/Vol] 14 mmol/L Normal 8-15 [facility] Comment on above: Order Comment: Speci men Type: BLOOD SPECIMEN [facility] Address: [address] [place] [address] Performed By: #### 2 4323-8 #### [facility] CLIA [id number] [address] [place] [address] [place] AST With P-5'-P [Catalytic activity/Vol] 22 U/L Normal 13-35 [facility] Comment on above: Order Comment: Speci men Type: BLOOD SPECIMEN [facility] Address: [address] [place] [address] Performed By: #### 2 4323-8 #### [facility] CLIA [id number] [address] [place] [address] [place] Bilirubin [Mass/Vol] 0.3 mg/dL Normal 0.2-1.3 [facility] Comment on above: Order Comment: Speci men Type: BLOOD SPECIMEN [facility] Address: [address] [place] [address] Performed By: #### 2 4323-8 #### [facility] CLIA [id number] [address] [place] [address] [place] Calcium [Mass/Vol] 8.7 mg/dL Normal 8.5-10.2 [facility] Comment on above: Order Comment: Speci men Type: BLOOD SPECIMEN [facility] Address: [address] [place] [address] Performed By: #### 2 4323-8 #### [facility] CLIA [id number] [address] [place] [address] [place] Chloride [Moles/Vol] 98 mmol/L Normal 98-107 [facility] Comment on above: Order Comment: Specdoyle moon Type: BLOOD SPECIMEN [facility] Address: [address] [place] [address] Performed By: #### 2 4323-8 #### [facility] CLIA [id number] [address] [place] [address] [place] CO2 [Moles/Vol] 21 mmol/L Low 22-30 [facility] Comment on above: Order Comment: Kayli moon Type: BLOOD SPECIMEN [facility] Address: [address] [place] [address] Performed By: #### 2 4323-8 #### [facility] CLIA [id number] [address] OF [facility] Creatinine [Mass/Vol] 0.57 mg/dL Low 0.58-0.96 [facility] Comment on above: Order Comment: Kayli moon Type: BLOOD SPECIMEN [facility] Address: [address] [place] [address] Performed By: #### 2 4323-8 #### [facility] CLIA [id number] [address] Creatinine and Glomerular filtration rate.predicted panel (S/P/Bld) 133 mL/min/1.73m??? Normal >=60 [facility] Comment on above: Order Comment: Speci men Type: BLOOD SPECIMEN [facility] Address: [address] [place] [address] Result Comment: Nick mated Glomerular Filtration Rate [...] GFR. Performed By: #### 2 4323-8 #### [facility] CLIA [id number] [address] [place] [address] [place] Glucose [Mass/Vol] 77 mg/dL Normal 74-99 [facility] Comment on above: Order Comment: Kayli moon Type: BLOOD SPECIMEN [facility] Address: [address] [place] [address] Result Comment: The [place] Diabetes Association (ADA) provides guidance for cutoff [...] Standards of Medical Care in Diabetes 2016, [place] Diabetes Association. Diabetes Care. 2016.39(Suppl 1). Performed By: #### 2 4323-8 #### [facility] CLIA [id number] [address] [place] [address] [place] Potassium [Moles/Vol] 3.6 mmol/L Low 3.7-5.1 [facility] Comment on above: Order Comment: Kayli moon Type: BLOOD SPECIMEN [facility] Address: [address] [place] [address] Performed By: #### 2 4323-8 #### [facility] CLIA [id number] [address] [place] [address] [place] Protein [Mass/Vol] 6.4 g/dL Normal 6.3-8.0 [facility] Comment on above: Order Comment: Kayli moon Type: BLOOD SPECIMEN [facility] Address: [address] [place] [address] Performed By: #### 2 4323-8 #### [facility] CLIA [id number] [address] [place] [address] [place] Sodium [Moles/Vol] 133 mmol/L Low 136-144 [facility] Comment on above: Order Comment: Kayli moon Type: BLOOD SPECIMEN [facility] Address: [address] [place] [address] Performed By: #### 2 4323-8 #### [facility] CLIA [id number] [address] [place] [address] [place] Urea nitrogen [Mass/Vol] 7 mg/dL Normal 7-21 [facility] Comment on above: Order Comment: Kayli moon Type: BLOOD SPECIMEN [facility] Address: [address] [place] [address] Performed By: #### 2 4323-8 #### [facility] CLIA [id number] [address] [place], [place] [address] [facility] ED NOTEon 03-10-2024 ED NOTE HNO ID: [id number] Author: MITRA CAMARGO RN Service: ? Author [...] anything else to help you? No Normal [facility] ED NOTE HNO ID: [id number] Author: ALL MCCOY RN Service: Emergency Medicine Author Type: Registered Nurse Type: ED Notes Filed: 03/10/2024 20:31 Note Text: Patient discharge instructions given to patient. Patient educated on discharge instructions and prescription. Patient denied having questions at this time regarding discharge instructions. Patient discharged home at this time. Normal [facility] ED NOTE HNO ID: [id number] Author: ALL MCCOY RN Service: Emergency Medicine Author Type: Registered Nurse Type: ED Notes Filed: 03/10/2024 19:22 Note Text: ED physician at bedside. [facility] ED NOTE HNO ID: [id number] Author: ALL MCCOY RN Service: Emergency Medicine Author Type: Registered Nurse Type: ED Notes Filed: 03/10/2024 19:07 Note Text: Change of shift report received from Mitra Brown RN. I assume patient care at this time. [facility] ED NOTE HNO ID: [id number] Author: MITRA CAMARGO RN Service: ? Author Type: Registered Nurse Type: ED Notes Filed: 03/10/2024 19:02 Note Text: Report to a kelli mccoy [facility] ED NOTE HNO ID: [id number] Author: MITRA CAMARGO RN Service: ? Author Type: Registered Nurse Type: ED Notes Filed: 03/10/2024 18:13 Note Text: Dr traore at bedside for exam [facility] ED NOTE HNO ID: [id number] Author: MITRA CAMARGO RN Service: ? Author Type: Registered Nurse Type: ED Notes Filed: 03/10/2024 18:10 Note Text: Pt is 9 weeks . Pt is having n/v/d and fever for 3 days. Pt 's other children had similar symptoms. [facility] ED PROV NOTEon 03-10-2024 ED PROV NOTE HNO ID: [id number] Author: JAQUELIN ARTEAGA DO Service: Emergency Medicine [...] HISTORY Procedure Laterality Date CHOLECYSTECTOMY HX [facility]/17[facility]23 [facility] I[facility] REMOVAL 09/15/2023 PT ED HEART AND [...] following com (more content not included)... Normal [facility] POC SOCIAL SERVICES SPECIALIST ULTRASOUNDon 03-10-19 Indication Viability; confirm cardiac activity [...] Read By: Jaquelin Hi CNM MATERNAL MEDICINE [facility] S pyo DNA Throat Ql SHYAM+prob suman 03-10-2024 S. pyogenes DNA SHYAM+probe Ql (Throat) Not detected Normal Not detected [facility] Comment on above: Order Comment: Speci men Type: SWAB [facility] Address: [address] [place] [address] Performed By: #### 6 0489-2 #### [facility] CLIA [id number] [address] STATES OF [facility] Urinalysis complete panel (U )on 03-10-2024 Bacteria LM.HPF (Urine sed) [#/Area] Moderate Abnormal None Seen [facility] Comment on above: Order Comment: Speci men Type: URINE SPECIMEN [facility] Address: [address] [place] [address] Performed By: #### 2 4356-8 #### [facility] CLIA [id number] [address] [place] Bilirubin Ql (U) Negative Normal Negative [facility] Comment on above: Order Comment: Speci men Type: URINE SPECIMEN [facility] Address: [address] [place] [address] Performed By: #### 2 4356-8 #### [facility] CLIA [id number] [address] [place] [address] [employer] [place] Clarity (Unsp spec) Slightly Cloudy Abnormal Clear [facility] Comment on above: Order Comment: Speci men Type: URINE SPECIMEN [facility] Address: [address] [place] [address] Performed By: #### 2 4356-8 #### [facility] CLIA [id number] [address] [place] [address] [facility] Color (U) Yellow Normal Yellow [facility] Comment on above: Order Comment: Speci men Type: URINE SPECIMEN [facility] Address: [address] [place] [address] Performed By: #### 2 4356-8 #### [facility] CLIA [id number] [address] [place] [address] [facility] Epithelial cells LM.HPF (Urine sed) [#/Area] Few Normal [facility] Comment on above: Order Comment: Speci men Type: URINE SPECIMEN [facility] Address: [address] [place] [address] Performed By: #### 2 4356-8 #### [facility] CLIA [id number] [address] [place] [address] [facility] [place] Glucose Test strip (U) [Mass/Vol] Negative Normal Negative [facility] Comment on above: Order Comment: Speci men Type: URINE SPECIMEN [facility] Address: [address] [place] [address] Performed By: #### 2 4356-8 #### [facility] CLIA [id number] [address] [place] [id number] [facility] Hemoglobin Ql (U) Trace Abnormal Negative [facility] Comment on above: Order Comment: Speci men Type: URINE SPECIMEN [facility] Address: [address] [place] [address] Performed By: #### 2 4356-8 #### [facility] CLIA [id number] [address] [place] [address] [place] Ketones Ql (U) 4+ Abnormal Negative [facility] Comment on above: Order Comment: Speci men Type: URINE SPECIMEN [facility] Address: [address] [place] [address] Performed By: #### 2 4356-8 #### [facility] CLIA [id number] [address] [place] [address] [place] Leukocyte esterase Test strip Ql (U) Negative Normal Negative [facility] Comment on above: Order Comment: Speci men Type: URINE SPECIMEN [facility] Address: [address] [place] [address] Performed By: #### 2 4356-8 #### [facility] CLIA [id number] [address] [place] [address] [place] Nitrite Ql (U) Negative Normal Negative [facility] Comment on above: Order Comment: Speci men Type: URINE SPECIMEN [facility] Address: [address] [place] [address] Performed By: #### 2 4356-8 #### [facility] CLIA [id number] [address] [place] [address] [place] pH (U) 6.0 [pH] Normal 5.0-8.0 [facility] Comment on above: Order Comment: Speci men Type: URINE SPECIMEN [facility] Address: [address] [place] [address] Performed By: #### 2 4356-8 #### [facility] CLIA [id number] [address] [place] [address] [place] Protein (U) [Mass/Vol] 1+ Abnormal Negative [facility] Comment on above: Order Comment: Speci men Type: URINE SPECIMEN [facility] Address: [address] [place] [address] Performed By: #### 2 4356-8 #### [facility] CLIA [id number] [address] [place] RBC LM.HPF (Urine sed) [#/Area] 3-5 /HPF Abnormal 0-3 /HPF [facility] Comment on above: Order Comment: Speci men Type: URINE SPECIMEN [facility] Address: [address] [place] [address] Performed By: #### 2 4356-8 #### [facility] CLIA [id number] [address] [place] [address] Specific gravity (U) [Rel density] >=1.030 High 1.005-1.030 [facility] Comment on above: Order Comment: Speci men Type: URINE SPECIMEN [facility] Address: [address] [place] [address] Performed By: #### 2 4356-8 #### [facility] CLIA [id number] [address] [place] [address] Urobilinogen Ql (U) 0.2 EU/dL Normal 0.2-1.0 EU/dL [facility] Comment on above: Order Comment: Speci men Type: URINE SPECIMEN [facility] Address: [address] [place] [address] Performed By: #### 2 4356-8 #### [facility] CLIA [id number] [address] WBC LM.HPF (Urine sed) [#/Area] 0-5 /HPF Normal 0-5 /HPF [facility] Comment on above: Order Comment: Speci men Type: URINE SPECIMEN [facility] Address: [address] [place] [address] Performed By: #### 2 4356-8 #### [facility] CLIA [id number] [address] OF [place] BACTERIAL VAGINOSIS NAATon 0 - Lactobacillus crispatus+gasseri+jense mendoza + Gardnerella vaginalis + Atopobium vaginae rRNA SHYAM+probe Ql (Vag fld) Not detected Normal Not detected [facility] Comment on above: Order Comment: Speci men Type: BLOOD SPECIMEN [facility] Address: [address] [place] [address] Performed By: #### 5 7021-8 #### [facility] CLIA [id number] [address] [place] [address] [place] Bacteria Ur Culton Bacteria identified Cx Nom (U) ORGANISM ID: 1 <10,000 CFU/ml Normal urogenital nicolette Normal [facility] Comment on above: Performed By: #### 6 30-4 ####[facility] [id number] [place] [address] [place] C. trachomatis+N. gonorrhoea e DNA SHYAM+probe Ql (Unsp spec)on 03-09-2024 C. trachomatis rRNA SHYAM+probe Ql (Unsp spec) Not detected Normal Not detected [facility] Comment on above: Order Comment: Speci men Type: BLOOD SPECIMEN [facility] Address: [address] [place] [address] Performed By: #### 5 7021-8 #### [facility] CLIA [id number] [address] [place] [address] [place] N. gonorrhoeae rRNA SHYAM+probe Ql (Unsp spec) Not detected Normal Not detected [facility] Comment on above: Order Comment: Speci men Type: BLOOD SPECIMEN [facility] Address: [address] [place] [address] Performed By: #### 5 7021-8 #### [facility] CLIA [id number] [address] [place] [address] [place] ALMITA/TRICHOMONAS NAATon 0 03-09-2024 C. glabrata RNA SHYAM+probe Ql (Vag fld) Not detected Normal Not detected [facility] Comment on above: Order Comment: Speci men Type: BLOOD SPECIMEN [facility] Address: [address] [place] [address] Performed By: #### 5 7021-8 #### [facility] CLIA [id number] [address] [place] [address] Almita sp DNA SHYAM+probe Ql (Vag fld) Not detected Normal Not detected [facility] Comment on above: Order Comment: Speci men Type: BLOOD SPECIMEN [facility] Address: [address] [place] [address] Result Comment: The Almita species group target includes C. albicans, C. tropicalis, C. parapsilosis, and C. dubliniensis. Performed By: #### 5 7021-8 #### [facility] CLIA [id number] [address] [place] [address] T. vaginalis DNA SHYAM+probe Ql (Unsp spec) Not detected Normal Not detected [facility] Comment on above: Order Comment: Speci men Type: BLOOD SPECIMEN [facility] Address: [address] [place] [address] Performed By: #### 5 7021-8 #### [facility] CLIA [id number] [address] [place] [address] [place] PAP TESTon 03-09-2024 ADEQUACY Satisfactory for interpretation. Normal [facility] Comment on above: Order Comment: Speci men Type: FLUID SPECIMENOrdering Facility: [facility] Address: [address] [place] [address] Performed By: #### L [id number] ####[facility] [id number] [place] [address] [place] [facility] [id number] [place] [address] [place] CASE REPORT Normal [facility] Comment on above: Order Comment: Speci men Type: FLUID SPECIMENOrdering Facility: [facility] Address: [address] [place] [address] Result Comment: Gyne cologic Cytology Report Case: [id number] Authorizing Provider: Jaquelin Hi APRN.CNM Collected: 03/09/2024 02:20 PM Ordering Location: OB/Gynecology Received: 03/09/2024 04:49 PM First Screen: Mohorcic, Lianet, CT, ASCP Specimen: Pap Test, ThinPrep, Cervix Performed By: #### L [id number] ####[facility] LABORATORYCLIA [id number] [address] LABCLIA [id number] [place] [address] [place] CLINICAL HISTORY, CYTOLOGY, COMPLIANCE AIDE Routine Exam Normal [facility] Comment on above: Order Comment: Speci men Type: FLUID SPECIMENOrdering Facility: [facility] Address: [address] [place] [address] Performed By: #### L [id number] ####[facility]ORATORYCLIA [id number] [address] LABCLIA [id number] [address] STATES OF [facility] FIN[facility] PERFORM[facility] LAB Normal [facility] Comment on above: Order Comment: Speci men Type: FLUID SPECIMENOrdering Facility: [facility] Address: [address] [place] [address] Result Comment: Tech nical component, automatic embroidery machine tender screening performed at [facility], [address] [id number] CLIA# [id number] Diagnostic interpretation performed at [facility], [address] [id number] CLIA# [id number] Medical Physics Teacher: Kirsten Abad M.D. Performed By: #### L [id number] ####[facility] LABORATORYCLIA [id number] [address] LABCLIA [id number] [address] [place] INTERPRETATION, CYTOLOGY, COMPLIANCE AIDE Normal [facility] Comment on above: Order Comment: Speci men Type: FLUID SPECIMENOrdering Facility: [facility] Address: [address] [place] [address] Result Comment: Nega tive for intraepithelial lesion or malignancy. Performed By: #### L [id number] ####[facility]ORATORYCLIA [id number] [address] LABCLIA [id number] [address] OF [facility] 01/07/2024 Normal [facility] Comment on above: Order Comment: Speci men Type: FLUID SPECIMENOrdering Facility: [facility] Address: [address] [place] [address] Performed By: #### L [id number] ####[facility] LABORATORYCLIA [id number] [address] LABCLIA [id number] [place] [address] [place] PAP DISCLAIMER COMMENT The Pap Smear is a screening test for cervical cancer. False negative results occur with all screening tests, emphasizing the need for rescreening at recommended intervals, and clinical correlation. Normal [facility] Comment on above: Order Comment: Speci men Type: FLUID SPECIMENOrdering Facility: [facility] Address: [address] [place] [address] Performed By: #### L [id number] ####[facility]ORATORYCLIA [id number] [address] LABCLIA [id number] [place] [address] [place] PAP CHIEF REVENUE OFFICER COMMENT This specimen has been analyzed by the ThinPrep Imaging System, an automated imaging and review system, which assists the laboratory in evaluating cells on ThinPrep Pap tests. Following automated imaging, selected barnhart from every slide are reviewed by a automatic embroidery machine tender. Normal [facility] Comment on above: Order Comment: Speci men Type: FLUID SPECIMENOrdering Facility: [facility] Address: [address] [place] [address] Performed By: #### L [id number] ####[facility] LABORATORYCLIA [id number] [address] [id number] [place] [facility] LABCLIA [id number] [address] [place] POC SOCIAL SERVICES SPECIALIST ULTRASOUNDon 03-09-19 Radiology Study observation (narrative) [facility] Bacteria identifiedon 2024 Bacteria identified Cx Nom (U) Test: Urine Culture Specimen Source: Clean Catch/Voided Specimen Type: Urine Specimen Date: 02/18/2024 1130 Result Date: 02/20/2024 0935 Result Status: Final result Abnormal: No Resulting Lab: [facility] [address] [address] CULTURE Clinically insignificant growth based on current clinical standards. Normal [facility] Comment on above: Performed By: #### 5 7021-8 #### MELISSA WHITEHEAD ([id number]) [facility] ([facility]) [address] [place] [address] Blood type and Indirect anti body screen panel (Bld)on 02-18-2024 ABO group Nom (Bld) A [facility] Blood group antibody screen Ql Negative [facility] D Ag Ql (Bld) Negative [facility] Review your Rh Negative female patient's potential need for Rh Immune Globulin (RhIg)administration . [facility] ABO group Nom (Bld) A Normal [facility] Comment on above: Order Comment: Venip uncture immediately after or during the administration of Metamizole may lead to falsely low results. Testing should be performed immediately prior to Metamizole dosing. Performed By: #### 3 040-3 #### MELSISA WHITEHEAD ([id number]) [facility] ([facility]) [address] [place] [address] Blood group antibody screen Ql Negative Normal [facility] Comment on above: Order Comment: Venip uncture immediately after or during the administration of Metamizole may lead to falsely low results. Testing should be performed immediately prior to Metamizole dosing. Performed By: #### 3 040-3 #### MELISSA WHITEHEAD ([id number]) [facility] ([facility]) [address] [place] [address] D Ag Ql (Bld) Negative Normal [facility] Comment on above: Order Comment: Venip uncture immediately after or during the administration of Metamizole may lead to falsely low results. Testing should be performed immediately prior to Metamizole dosing. Performed By: #### 3 040-3 #### MELISSA WHITEHEAD ([id number]) [facility] ([facility]) [address] [place] [address] CBC W Auto Differential pane l (Bld)on 02-18-2024 Basophils (Bld) [#/Vol] 0.03 10*3/uL [facility] Basophils/100 WBC (Bld) 0.5 % 0.0 - 2.0 % [facility] Eosinophils (Bld) [#/Vol] 0.05 10*3/uL [facility] Eosinophils/100 WBC (Bld) 0.8 % 0.0 - 6.0 % [facility] Erythrocyte distribution width (RBC) [Ratio] 13.6 % 11.5 - 14.5 % [facility] Hematocrit (Bld) [Volume fraction] 39.8 % 36.0 - 46.0 % [facility] Hemoglobin (Bld) [Mass/Vol] 13.3 g/dL 12.0 - 16.0 g/dL [facility] Immature granulocytes (Bld) [#/Vol] 0.02 10*3/uL [facility] Immature granulocytes/100 WBC (Bld) 0.3 % 0.0 - 0.9 % [facility] Comment on above: Immature Granulocyte Count (IG) includes promyelocytes, myelocytes and metamyelocytes but does not include bands. Percent differential counts (%) should be interpreted in the context of the absolute cell counts (cells/UL). Lymphocytes (Bld) [#/Vol] 1.52 10*3/uL [facility] Lymphocytes/100 WBC (Bld) 23.6 % 13.0 - 44.0 % [facility] MCH (RBC) [Entitic mass] 28.9 pg 26.0 - 34.0 pg [facility] MCHC (RBC) [Mass/Vol] 33.4 g/dL 32.0 - 36.0 g/dL [facility] MCV (RBC) [Entitic vol] 87 fL 80 - 100 fL [facility] Monocytes (Bld) [#/Vol] 0.54 10*3/uL [facility] Monocytes/100 WBC (Bld) 8.4 % 2.0 - 10.0 % [facility] Neutrophils (Bld) [#/Vol] 4.29 10*3/uL [facility] Comment on above: Percent differential counts (%) should be interpreted in the context of the absolute cell counts (cells/uL). Neutrophils/100 WBC (Bld) 66.4 % 40.0 - 80.0 % [facility] Nucleated RBC/100 WBC (Bld) [Ratio] 0 % [facility] Platelets (Bld) [#/Vol] 182 10*3/uL [facility] RBC (Bld) [#/Vol] 4.6 10*6/uL [facility] WBC (Bld) [#/Vol] 6.5 10*3/uL [facility] Basophils (Bld) [#/Vol] 0.03 x10*3/uL Normal 0.00-0.10 [facility] Comment on above: Performed By: #### 3 040-3 #### MELISSA WHITEHEAD ([id number]) [facility] ([facility]) [address] [place] [address] 07810 Basophils/100 WBC (Bld) 0.5 % Normal 0.0-2.0 U [facility] Comment on above: Performed By: #### 3 040-3 #### MELISSA WHITEHEAD ([id number]) [facility] ([facility]) [address] [place] [address] 31078 Eosinophils (Bld) [#/Vol] 0.05 x10*3/uL Normal 0.00-0.70 [facility] Comment on above: Performed By: #### 3 040-3 #### MELISSA WHITEHEAD ([id number]) [facility] ([facility]) [address] [place] [address] 15052 Eosinophils/100 WBC (Bld) 0.8 % Normal 0.0-6.0 [facility] Comment on above: Performed By: #### 3 040-3 #### MELISSA WHITEHEAD ([id number]) [facility] ([facility]) [address] [place] [address] 71384 Erythrocyte distribution width (RBC) [Ratio] 13.6 % Normal 11.5-14.5 [facility] Comment on above: Performed By: #### 3 040-3 #### MELISSA WHITEHEAD ([id number]) [facility] ([facility]) [address] [place], [place] [address] Hematocrit (Bld) [Volume fraction] 39.8 % Normal 36.0-46.0 [facility] Comment on above: Performed By: #### 3 040-3 #### MELISSA WHITEHEAD ([id number]) [facility] ([facility]) [address] [place] [address] 62356 Hemoglobin (Bld) [Mass/Vol] 13.3 g/dL Normal 12.0-16.0 [facility] Comment on above: Performed By: #### 3 040-3 #### MELISSA WHITEHEAD ([id number]) [facility] ([facility]) [address] [place] [address] 58064 Immature granulocytes (Bld) [#/Vol] 0.02 x10*3/uL Normal 0.00-0.70 [facility] Comment on above: Performed By: #### 3 040-3 #### MELISSA WHITEHEAD ([id number]) [facility] ([facility]) [address] [place] [address] 29206 Immature granulocytes/100 WBC (Bld) 0.3 % Normal 0.0-0.9 [facility] Comment on above: Result Comment: Betty ture Granulocyte Count (IG) includes promyelocytes, myelocytes and metamyelocytes but does not include bands. Percent differential counts (%) should be interpreted in the context of the absolute cell counts (cells/UL). Performed By: #### 3 040-3 #### MELISSA WHITEHEAD ([id number]) [facility] ([facility]) [address] [place] [address] 20158 Lymphocytes (Bld) [#/Vol] 1.52 x10*3/uL Normal 1.20-4.80 [facility] Comment on above: Performed By: #### 3 040-3 #### MELISSA WHITEHEAD ([id number]) [facility] ([facility]) [address] [place], [place] [address] Lymphocytes/100 WBC (Bld) 23.6 % Normal 13.0-44.0 [facility] Comment on above: Performed By: #### 3 040-3 #### MELISSA WHITEHEAD ([id number]) [facility] ([facility]) [address] [place] [address] 26314 MCH (RBC) [Entitic mass] 28.9 pg Normal 26.0-34.0 [facility] Comment on above: Performed By: #### 3 040-3 #### MELISSA WHITEHEAD ([id number]) [facility] ([facility]) [address] [place] [address] 68740 MCHC (RBC) [Mass/Vol] 33.4 g/dL Normal 32.0-36.0 [facility] Comment on above: Performed By: #### 3 040-3 #### MELISSA WHITEHEAD ([id number]) [facility] ([facility]) [address] [place] [address] 80186 MCV (RBC) [Entitic vol] 87 fL Normal 80-100 U [facility] Comment on above: Performed By: #### 3 040-3 #### MELISSA WHITEHEAD ([id number]) [facility] ([facility]) [address] [place] [address] 49633 Monocytes (Bld) [#/Vol] 0.54 x10*3/uL Normal 0.10-1.00 [facility] Comment on above: Performed By: #### 3 040-3 #### MELISSA WHITEHEAD ([id number]) [facility] ([facility]) [address] [place] [address] 07014 Monocytes/100 WBC (Bld) 8.4 % Normal 2.0-10.0 [facility] Comment on above: Performed By: #### 3 040-3 #### MELISSA WHITEHEAD ([id number]) [facility] ([facility]) [address] [place] [address] 34069 Neutrophils (Bld) [#/Vol] 4.29 x10*3/uL Normal 1.20-7.70 [facility] Comment on above: Result Comment: Perc ent differential counts (%) should be interpreted in the context of the absolute cell counts (cells/uL). Performed By: #### 3 040-3 #### MELISSA WHITEHEAD ([id number]) [facility] ([facility]) [address] [place] [address] 17519 Neutrophils/100 WBC (Bld) 66.4 % Normal 40.0-80.0 [facility] Comment on above: Performed By: #### 3 040-3 #### MELISSA WHITEHEAD ([id number]) [facility] ([facility]) [address] [place] [address] 96931 Nucleated RBC/100 WBC (Bld) [Ratio] 0.0 /100 WBCs Normal 0.0-0.0 [facility] Comment on above: Performed By: #### 3 040-3 #### MELISSA WHITEHEAD ([id number]) [facility] ([facility]) [address] [place] [address] 48309 Platelets (Bld) [#/Vol] 182 x10*3/uL Normal 150-450 [facility] Comment on above: Performed By: #### 3 040-3 #### MELISSA WHITEHEAD ([id number]) [facility] ([facility]) [address] [place] [address] 97967 RBC (Bld) [#/Vol] 4.60 x10*6/uL Normal 4.00-5.20 [facility] Comment on above: Performed By: #### 3 040-3 #### MELISSA WHITEHEAD ([id number]) [facility] ([facility]) [address] [place] [address] WBC (Bld) [#/Vol] 6.5 x10*3/uL Normal 4.4-11.3 [facility] Comment on above: Performed By: #### 3 040-3 #### MELSISA WHITEHEAD ([id number]) [facility] ([facility]) [address] [place] [address] Choriogonadotropin.beta subu niton 02-18-2024 [place] [address] m[IU]/mL High <5 U [facility] Comment on above: Order Comment: Venip [...] By: #### 3 040-3 #### MELISSA WHITEHEAD ([id number]) [facility] ([facility]) [address] [place] [address] Comprehensive metabolic 2000 panelon 02-18-2024 Albumin BCP dye [Mass/Vol] 4.3 g/dL 3.4 - 5.0 g/dL [facility] ALP [Catalytic activity/Vol] 48 U/L 33 - 110 U/L [facility] ALT With P-5'-P [Catalytic activity/Vol] 14 U/L 7 - 45 U/L [facility] Comment on above: Patients treated wit h Sulfasalazine may generate falsely decreased results for ALT. Anion gap [Moles/Vol] 11 mmol/L 10 - 20 mmol/L [facility] AST With P-5'-P [Catalytic activity/Vol] 14 U/L 9 - 39 U/L [facility] Bilirubin [Mass/Vol] 1 mg/dL 0.0 - 1.2 mg/dL [facility] Calcium [Mass/Vol] 8.8 mg/dL 8.6 - 10. 3 mg/dL [facility] Chloride [Moles/Vol] 104 mmol/L 98 - 107 mmol/L [facility] CO2 [Moles/Vol] 22 mmol/L 21 - 32 mmol/L Unive [facility] Creatinine [Mass/Vol] 0.57 mg/dL 0.50 - 1.05 mg/dL [facility] eGFR - PINF [facility] Comment on above: Calculations of nick mated GFR are performed using the 2020 CKD-EPI Study Refit equation without the race variable for the IDMS-Traceable creatinine methods. https://jasn.asnjournals.org/content/early//ASN.2020 394886 Glucose [Mass/Vol] 64 mg/dL Low 74 - 99 mg/dL Uni [facility] Interpretation and review of laboratory results Abnormal [facility] Potassium [Moles/Vol] 4.2 mmol/L 3.5 - 5.3 mmol/L [facility] Protein [Mass/Vol] 6.7 g/dL 6.4 - 8.2 g/dL [facility] Sodium [Moles/Vol] 133 mmol/L Low 136 - 145 mmol/L [facility] Urea nitrogen [Mass/Vol] 10 mg/dL 6 - 23 mg/dL [facility] Albumin BCP dye [Mass/Vol] 4.3 g/dL Normal 3.4-5.0 [facility] Comment on above: Performed By: #### 3 040-3 #### MELISSA WHITEHEAD ([id number]) [facility] ([facility]) [address] [place] [address] 73170 ALP [Catalytic activity/Vol] 48 U/L Normal 33-110 [facility] Comment on above: Performed By: #### 3 040-3 #### MELISSA WHITEHEAD ([id number]) [facility] ([facility]) [address] [place] [address] ALT With P-5'-P [Catalytic activity/Vol] 14 U/L Normal 7-45 [facility] Comment on above: Result Comment: Gema ents treated with Sulfasalazine may generate falsely decreased results for ALT. Performed By: #### 3 040-3 #### MELISSA WHITEHEAD ([id number]) [facility] ([facility]) [address] [place] [address] Anion gap [Moles/Vol] 11 mmol/L Normal 10-20 [facility] Comment on above: Performed By: #### 3 040-3 #### MELISSA WHITEHEAD ([id number]) [facility] ([facility]) [address] [place] [address] AST With P-5'-P [Catalytic activity/Vol] 14 U/L Normal 9-39 [facility] Comment on above: Performed By: #### 3 040-3 #### MELISSA WHITEHEAD ([id number]) [facility] ([facility]) [address] [place] [address] Bilirubin [Mass/Vol] 1.0 mg/dL Normal 0.0-1.2 [facility] Comment on above: Performed By: #### 3 040-3 #### MELISSA WHITEHEAD ([id number]) [facility] ([facility]) [address] [place] [address] Calcium [Mass/Vol] 8.8 mg/dL Normal 8.6-10.3 [facility] Comment on above: Performed By: #### 3 040-3 #### MELISSA WHITEHEAD ([id number]) [facility] ([facility]) [address] [place] [address] Chloride [Moles/Vol] 104 mmol/L Normal 98-107 [facility] Comment on above: Performed By: #### 3 040-3 #### MELISSA WHITEHEAD ([id number]) [facility] ([facility]) [address] [place] [address] CO2 [Moles/Vol] 22 mmol/L Normal 21-32 [facility] Comment on above: Performed By: #### 3 040-3 #### MELISSA WHITEHEAD ([id number]) [facility] ([facility]) [address] [place] [address] 74629 Creatinine [Mass/Vol] 0.57 mg/dL Normal 0.50-1.05 [facility] Comment on above: Performed By: #### 3 040-3 #### MELISSA WHITEHEAD ([id number]) [facility] ([facility]) [address] [place] [address] 83465 GFR/1.73 sq M.predicted MDRD (S/P/Bld) [Vol rate/Area] mL/min/{1.73_m2} Normal >60 [facility] Comment on above: Result Comment: Calc ulations of estimated GFR are performed using the 2020 CKD-EPI Study Refit equation without the race variable for the IDMS-Traceable creatinine methods. https://jasn.asnjournals.org/content/early//ASN.2020 679920 Performed By: #### 3 040-3 #### MELISSA WHITEHEAD ([id number]) [facility] ([facility]) [address] [place] [address] 24198 Glucose [Mass/Vol] 64 mg/dL Low 74-99 [facility] Comment on above: Performed By: #### 3 040-3 #### MELISSA WHITEHEAD ([id number]) [facility] ([facility]) [address] [place] [address] 71626 Potassium [Moles/Vol] 4.2 mmol/L Normal 3.5-5.3 [facility] Comment on above: Performed By: #### 3 040-3 #### MELISSA WHITEHEAD ([id number]) [facility] ([facility]) [address] [place] [address] 69565 Protein [Mass/Vol] 6.7 g/dL Normal 6.4-8.2 [facility] Comment on above: Performed By: #### 3 040-3 #### MELISSA WHITEHEAD ([id number]) [facility] ([facility]) [address] [place] [address] 67035 Sodium [Moles/Vol] 133 mmol/L Low 136-145 [facility] Comment on above: Performed By: #### 3 040-3 #### MELISSA WHITEHEAD ([id number]) [facility] ([facility]) [address] [place] [address] 41938 Urea nitrogen [Mass/Vol] 10 mg/dL Normal 6-23 [facility] Comment on above: Performed By: #### 3 040-3 #### MELISSA WHITEHEAD ([id number]) [facility] ([facility]) [address] [place] [address] 79571 Glucose Test strip manual (B ld) [Mass/Vol]on 02-18-2024 Glucose [Mass/Vol] 168 mg/dL High 74 - 99 mg/dL [facility] Interpretation and review of laboratory results Abnormal [facility] Glucose [Mass/Vol] 168 mg/dL High 74-99 [facility] Comment on above: Performed By: #### 3 040-3 #### MELISSA WHITEHEAD ([id number]) [facility] ([facility]) [address] [place] [address] 65599 Glucose [Mass/Vol] 54 mg/dL Low 74 - 99 mg/dL [facility] Comment on above: Notified Interpretation and review of laboratory results Abnormal [facility] Glucose [Mass/Vol] 54 mg/dL Low 74-99 [facility] Comment on above: Result Comment: MD Maurice layne Performed By: #### 3 040-3 #### MELISSA WHITEHEAD ([id number]) [facility] ([facility]) [address] [place] [address] 01675 HCG ( test) IA.rapi d Ql (U)Ordered By: Keila Coburn on 02-18-2024 HCG ( test) Ql (U) Positive Abnormal NEGATIVE [facility] Interpretation and review of laboratory results Abnormal [facility] HCG ( test) IA.rapi d Ql (U)on 02-18-2024 HCG ( test) Ql (U) Positive Abnormal NEGATIVE [facility] Comment on above: Performed By: #### 3 040-3 #### TORRES VENTURA ([id number]) [facility] ([facility]) [address] [place] [address] HCG.beta subunit Qnon 2024 Interpretation and review of laboratory results Abnormal [facility] Total HCG measurement is performed using the Marcell[employer] Mona Access Immunoassay which detects intact HCG and free beta HCG subunit. This test is not indicated for use as a tumor marker. HCG testing is performed using a different test methodology at [facility] than other [facility]. Direct result comparison should only be made within the same method. [facility] No Panel Informationon 02-17 Interpretation and review of laboratory results Abnormal [facility] US PELVIS OB TRANSABDOMINAL W [...] (by LMP) 10/13/2024 COMPARISON: None. ACCESSION NUMBER(S): [id number] ORDERING CLINICIAN: EUGENE MCCORMICK TECHNIQUE: Routine ultrasound [...] Samia Valencia 02/18/2024 1:00 PM Dictation workstation: [id number] [facility] US Pelvis transvaginalon 1. Single live intrauterine . 2. Estimated gestational age: 6 weeks 1 days. LUZ: 10/12/2024. 3. Small subchorionic hemorrhage. MACRO: None Signed by: aSmia Valencia 02/18/2024 1:00 PM Dictation workstation: [id number] Interpreted By: Samia Valencia, STUDY: US PELVIS OB TRANSABDOMINAL W TRANSVAGINAL UP TO 1ST TRIMESTER 02/18/2024 12:42 pm INDICATION: 23 y/o F with Signs/Symptoms:abd cramping. LMP 01/07/2024 EGA (by LMP) 6 w 0 d LUZ (by LMP) 10/13/2024 COMPARISON: None. ACCESSION NUMBER(S): [id number] ORDERING CLINICIAN: EUGENE MCCORMICK TECHNIQUE: Routine ultrasound [...] (by LMP) 10/13/2024 COMPARISON: None. ACCESSION NUMBER(S): [id number] ORDERING CLINICIAN: EUGENE MCCORMICK TECHNIQUE: Routine ultrasound [...] Samia Valencia 02/18/2024 1:00 PM Dictation workstation: [id number] [facility] Work Phone: Radiology Study observation (narrative) [facility] [facility] Work Phone: US Pelvis transvaginalOrdere d By: Samia Valencia on 02-18-2024 [facility] Work Phone: Urinalysis complete W Reflex Culture panel (U)on 02-18-2024 Appearance (U) Turbid Abnormal Clear [facility] Bilirubin (U) [Mass/Vol] Negative NEGATIVE [facility] Color (U) Yellow Light-Yellow, Yellow, Dark-Yellow [facility] Glucose Auto test strip (U) [Mass/Vol] Normal Normal mg/dL [facility] Ketones (U) [Mass/Vol] OVER (4+) Abnormal NEGATIVE mg/d L [facility] Leukocyte esterase Auto test strip Ql (U) 250 Dustin/uL Abnormal NEGATIVE [facility] Nitrite Auto test strip Ql (U) Negative NEGATIVE [facility] pH (U) 6 [pH] 5.0, 5.5, 6.0, 6.5, 7.0, 7.5, 8.0 [facility] Protein (U) [Mass/Vol] 50 (1+) Abnormal NEGAT UNRULY, 10 (TRACE), 20 (TRACE) mg/dL [facility] RBC (U) [#/Vol] Negative NEGATIVE [facility] Specific gravity (U) [Rel density] 1.030 1.005 - 1.035 [facility] Urobilinogen (U) [Mass/Vol] Normal Normal mg/dL [facility] OVER is reported when the result is greater than the clinically reportable range. [facility] Appearance (U) Turbid Normal Clear [facility] Comment on above: Order Comment: Venip uncture immediately after or during the administration of Metamizole may lead to falsely low results. Testing should be performed immediately prior to Metamizole dosing. Performed By: #### 3 040-3 #### TORRES VENTURA ([id number]) [facility] ([facility]) [address] [place] [address] Bilirubin (U) [Mass/Vol] Negative Normal NEGATIVE [facility] Comment on above: Order Comment: Venip uncture immediately after or during the administration of Metamizole may lead to falsely low results. Testing should be performed immediately prior to Metamizole dosing. Performed By: #### 3 040-3 #### MELISSA WHITEHEAD ([id number]) [facility] ([facility]) [address] [place], [place] [address] Color (U) Yellow Normal Light-Yellow, Yellow, Dark-Yellow [facility] Comment on above: Order Comment: Venip uncture immediately after or during the administration of Metamizole may lead to falsely low results. Testing should be performed immediately prior to Metamizole dosing. Performed By: #### 3 040-3 #### MELISSA WHITEHEAD ([id number]) [facility] ([facility]) [address] [place], [place] [address] Glucose Auto test strip (U) [Mass/Vol] Normal Normal Normal [facility] Comment on above: Order Comment: Venip uncture immediately after or during the administration of Metamizole may lead to falsely low results. Testing should be performed immediately prior to Metamizole dosing. Performed By: #### 3 040-3 #### MELISSA WHITEHEAD ([id number]) [facility] ([facility]) [address] [place] [address] Ketones (U) [Mass/Vol] OVER (4+) Abnormal NEGATIVE Un [facility] Comment on above: Order Comment: Venip uncture immediately after or during the administration of Metamizole may lead to falsely low results. Testing should be performed immediately prior to Metamizole dosing. Performed By: #### 3 040-3 #### MELISSA WHITEHEAD ([id number]) [facility] ([facility]) [address] [place], [place] [address] Leukocyte esterase Auto test strip Ql (U) 250 Dustin/uL Abnormal NEGATIVE [facility] Comment on above: Order Comment: Venip uncture immediately after or during the administration of Metamizole may lead to falsely low results. Testing should be performed immediately prior to Metamizole dosing. Performed By: #### 3 040-3 #### MELISSA WHITEHEAD ([id number]) [facility] ([facility]) [address] [place] [address] Nitrite Auto test strip Ql (U) Negative Normal NEGATIVE [facility] Comment on above: Order Comment: Venip uncture immediately after or during the administration of Metamizole may lead to falsely low results. Testing should be performed immediately prior to Metamizole dosing. Performed By: #### 3 040-3 #### MELISSA WHITEHEAD ([id number]) [facility] ([facility]) [address] [place] [address] pH (U) 6.0 [pH] Normal 5.0, 5.5, 6.0, 6.5, 7.0, 7.5, 8.0 [facility] Comment on above: Order Comment: Venip uncture immediately after or during the administration of Metamizole may lead to falsely low results. Testing should be performed immediately prior to Metamizole dosing. Performed By: #### 3 040-3 #### MELISSA WHITEHEAD ([id number]) [facility] ([facility]) [address] [place] [address] Protein (U) [Mass/Vol] 50 (1+) Abnormal NEGAT UNRULY, 10 (TRACE), 20 (TRACE) [facility] Comment on above: Order Comment: Venip uncture immediately after or during the administration of Metamizole may lead to falsely low results. Testing should be performed immediately prior to Metamizole dosing. Performed By: #### 3 040-3 #### MELISSA WHITEHEAD ([id number]) [facility] ([facility]) [address] [place] [address] RBC (U) [#/Vol] Negative Normal NEGATIVE [facility] Comment on above: Order Comment: Venip uncture immediately after or during the administration of Metamizole may lead to falsely low results. Testing should be performed immediately prior to Metamizole dosing. Performed By: #### 3 040-3 #### MELISSA WHITEHEAD ([id number]) [facility] ([facility]) [address] [place] [address] Specific gravity (U) [Rel density] 1.030 Normal 1.005-1.035 [facility] Comment on above: Order Comment: Venip uncture immediately after or during the administration of Metamizole may lead to falsely low results. Testing should be performed immediately prior to Metamizole dosing. Performed By: #### 3 040-3 #### MELISSA WHITEHEAD ([id number]) [facility] ([facility]) [address] [place] [address] Urobilinogen (U) [Mass/Vol] Normal Normal Normal [facility] Comment on above: Order Comment: Venip uncture immediately after or during the administration of Metamizole may lead to falsely low results. Testing should be performed immediately prior to Metamizole dosing. Performed By: #### 3 040-3 #### MELISSA WHITEHEAD ([id number]) [facility] ([facility]) [address] [place] [address] Urinalysis microscopic panel Auto Ql (U)on 02-18-2024 Bacteria Auto (Urine sed) [#/Area] 1+ Abnormal NONE SEEN /HPF [facility] Epithelial cells.squamous Auto (Urine sed) [#/Area] 10-25 (FEW) Reference range not established. /HPF [facility] Mucus Auto (Urine sed) [#/Area] 2+ Reference range not established. /LPF [facility] RBC Auto (Urine sed) [#/Area] 3-5 NONE, 1-2, 3-5 /HPF [facility] WBC Auto (Urine sed) [#/Area] >50 Abnormal 1-5, NONE /HPF [facility] Bacteria Auto (Urine sed) [#/Area] 1+ /HPF Abnormal NONE SEEN [facility] Comment on above: Performed By: #### 3 040-3 #### MELISSA WHITEHEAD ([id number]) [facility] ([facility]) [address] [place] [address] Epithelial cells.squamous Auto (Urine sed) [#/Area] 10-25 (FEW) Normal Reference range not established. [facility] Comment on above: Performed By: #### 3 040-3 #### MELISSA WHITEHEAD ([id number]) [facility] ([facility]) [address] [place] [address] Mucus Auto (Urine sed) [#/Area] 2+ /LPF Normal Reference range not established. [facility] Comment on above: Performed By: #### 3 040-3 #### MELISSA WHITEHEAD ([id number]) [facility] ([facility]) [address] [place] [address] RBC Auto (Urine sed) [#/Area] 3-5 Normal NONE, 1-2, 3-5 [facility] Comment on above: Performed By: #### 3 040-3 #### MELISSA WHITEHEAD ([id number]) [facility] ([facility]) [address] [place] [address] WBC Auto (Urine sed) [#/Area] >50 Abnormal 1-5, NONE [facility] Comment on above: Performed By: #### 3 040-3 #### MELISSA WHITEHEAD ([id number]) [facility] ([facility]) [address] [place] [address] hCG, quantitative, on 02-18-2024 [place] [address] m[IU]/mL [facility] Comment on above: Low-level positive H [...] Q-T Interval 388 QTC Calculation(Bazett) 412 P [place]te 33 R [place]te 86 T [place] 48 QRS Count 11 Q Onset 222 P Onset 152 P Offset 195 T Offset 416 QTC Fredericia 404 Diagnosis Normal sinus rhythm Normal ECG When compared with ECG of 03-OCT-2023 06:45, No significant change was found Confirmed by Ramiro Hugo ([id number]) on 02/02/2024 6:20:23 PM Normal [facility] CNOVon 12-26-2023 CNOV Office Visit (AGFAMPLE) KEAGAN ALICIA ([id number]) 4 F Date Time Provider Department 12/26/23 10:00 AM RACHELL AMADOR During your visit today, we recorded the following information about you: Temperature Pulse Respiration Blood pressure 98 degrees 52/minute 16/minute 122/62 Weight Height 56.2 kg 1.6 m Rachell Amador APRN.SEMICONDUCTOR WAFERS TESTER 12/26/2023 11:34 [place] [address] Date of Evaluation: 12/26/2023 Patient Name: Keagan [...] HISTORY Procedure Laterality Date CHOLECYSTECTOMY H[facility]AL 09/15/2023 PT ED HEART AND [...] Ear: Tympa (more content not included)... Normal [facility] BACTERIAL VAGINOSIS NAATon 1 Lactobacillus crispatus+gasseri+jense mendoza + Gardnerella vaginalis + Atopobium vaginae rRNA SHYAM+probe Ql (Vag fld) Negative Normal Negative for bacterial vaginosis [facility] Comment on above: Order Comment: Speci men Type: SWABOrdering Facility: [facility] Address: [address] [place] [address] Performed By: #### C VTV, BVAMP ####[facility] [id number] [place] [address] [place] C. trachomatis+N. gonorrhoea e DNA SHYAM+probe Ql (Unsp spec)on 11-24-2023 C. trachomatis rRNA SHYAM+probe Ql (Unsp spec) Negative Normal Negative for Chlamydia trachomatis by amplificaton [facility] Comment on above: Order Comment: Speci men Type: SWABOrdering Facility: [facility] Address: [address] [place] [address] Performed By: #### 3 6902-5 ####[facility] [id number] [place] [address] [place] N. gonorrhoeae rRNA SHYAM+probe Ql (Unsp spec) Negative Normal Negative for Neisseria gonorrhoeae by amplification [facility] Comment on above: Order Comment: Speci men Type: SWABOrdering Facility: [facility] Address: [address] [place] [address] Performed By: #### 3 6902-5 ####[facility] [id number] [place] [address] [place] ALMITA/TRICHOMONAS NAATon 1 C. glabrata RNA SHYAM+probe Ql (Vag fld) Negative Normal Negative for Almita glabrata [facility] Comment on above: Order Comment: Speci men Type: SWABOrdering Facility: [facility] Address: [address] [place] [address] Performed By: #### C VTV, BVAMP ####[facility] [id number] [address] [place] Almita sp DNA SHYAM+probe Ql (Vag fld) Negative Normal Negative for Almita species [facility] Comment on above: Order Comment: Speci men Type: SWABOrdering Facility: [facility] Address: [address] [place] [address] Performed By: #### C VTV, BVAMP ####[facility] [id number] [place] [address] [place] T. vaginalis DNA SHYAM+probe Ql (Unsp spec) Negative Normal Negative for Trichomonas vaginalis by amplification [facility] Comment on above: Order Comment: Speci men Type: SWABOrdering Facility: [facility] Address: [address] [place] [address] Performed By: #### C VTV, BVAMP ####[facility] [id number] [place] [address] [place] CNOVon 11-24-2023 CNOV Office Visit (OBGYWM) KEAGAN ALICIA ([id number]) 4 F Date Time Provider Department 11/24/23 12:45 PM SANDRA COLE OBGYWM During your visit today, we recorded the following information about you: Blood pressure Weight Last Period 118/64 54.4 kg 11/18/23 Sandra Cole, PIPE STEM SAWYER.SEMICONDUCTOR WAFERS TESTER 11/24/2023 1:09 PM Signed Patient declined front office secretary. Keagan Alicia is a 23 year old [...] Births2 Comment: No DANDCs for missed abs Recruitment Coordinator History LMP: 09/15/2023 (Exact Date), Having periods Age at Menarche: Age at First : Age at Menopause: Recruitment Coordinator History Comments: Sexual Activity: Yes; Male Contraception: Pill PAST MEDICAL HISTORY Diagnosis Date Anemia Chronic tonsillitis Depression 10/08/2016 Gall stone 07/2022 cholecystectomy after delivery GERD (gastroesophageal reflux disease) Hemorrhoids History of back problems Kidney stones Paroxysmal SVT (supraventricular tachycardia) ([facility]) Postoperative pulmonary embolism ([facility]) 06/2023 Psychiatric disorder depression, anxiety and PTSD PAST SURGICAL HISTORY Procedure Laterality Date CHOLECYSTECTOMY HX [facility] REM[facility]AL 09/15/2023 TONSILLECTOMY HX FAMILY HISTORY [...] discussed with the Patient or Patient's Authorized Timber Management Specialist. As applicable, any other physician, advance practice provider, medical student, or other health professional student that will be observing or involved in the sensitive examination for educational or training purposes was discussed with the Patient or Authorized Timber Management Specialist. The Patient or Authorized Timber Management Specialist has agreed to proceed with the sensitive examination. (Sensitive examination includes inspection and/or palpation of the breasts, pelvis, prostate and anorectal regions). EXAM: LMP 09/15/2023 GENERAL: pleasant, female in no apparent distress HEENT: Normocephalic, atraumatic, mucus membranes moist, and no lesions CHEST: Normal inspiratory effort ABDOMEN: soft, non-tender, and no masses PELVIC: external genitalia normal, normal Bartholin's glands, urethra, [place] Jack's glands, no vulvar lesions, no cervical lesions, good vaginal support, physiologic discharge present, normal appearing perineal body and perianal region BIMANUAL: deferred NEURO: alert and oriented x3,exam grossly non-focal EXTREMITIES: normal ASSESSMENT/PLAN: 1. Vaginal discharge - ICD9: 623.5, ICD10: N89.8 Will notify patient of test results. - ALMITA/TRICHOMONAS NAAT - BACTERIAL VAGINOSIS NAAT - GONORRHEA/CHLAMYDIA NAAT If results are negative recommend vaginal pH primer inserting machine operator. Sandra Cole APRN.ULISSES Medical Decision Making: Problems: Moderate: New problem with uncertain prognosis Data: Unique test(s) ordered: 3+ Risk: Low: Low risk from testing/treatment Medical Decision Making Level: 4 - Moderate Allergies As of Date: 11/24/2023 Noted Allergy Reaction LATEX 07/02/2023 9 - Itching Date Reviewed: 09/29/2023 Reviewed by: Seema Bowman RN - Fully Assessed Reason for Visit: (more content not included)... Normal [facility] HISTORY PHYSICALon HISTORY PHYSICAL HNO ID: [id number] Author: FAIZA MISHRA APRN.ULISSES Service: ? Author [...] postoperative status. LABS BASIC METABOLIC PANEL Order: [id number] Component Ref Range AND Units 2 wk [...] the IDMS-Traceable creatinine methods. https://jasn.asnjour nals.org/content/ear ly//ASN.20 02195477 Calcium 8.6 - 10.3 mg/dL 9.2 ntains abnormal data COMPLETE BLOOD COUNT Order: [id number] Component Ref Range AND Units 2 wk [...] Abs Lymph 1.00 - 4.00 k/uL 1.48 Kingfisher% % 10.7 Abs Kingfisher <0.87 k/uL 0.38 Eosin% % 0.3 Abs [...] stones No date: Paroxysmal SVT (supraventricular tachycardia) ([facility]) 06/2023: Postoperative pulmonary embolism ([facility]) No date: Psychiatric disorder Comment: depression, anxiety and PTSD PAST SURGICAL HISTORY 06/17/2023: CHOLECYSTECTOMY [facility]: IUD REMOVAL No date: TONSILLECTOMY HX FAMILY HISTORY Problem Relation Age of Onset other (migraines) Mother None Father Ovarian cancer Maternal Grandmother Anesthesia Problems No Family History Social History Tobacco Use Smoking status: Never Passive exposure: Yes Smokeless tobacco: Never Tobacco comments: Vapes Vaping Use Vaping status: current everyday user Substances: Nicotine, Flavor (more content not included)... Normal [facility] ECG 12 lead Aysha Atrial Rate 69 BPM [facility] Work Phone: P Butte 44 degrees [facility] Work Phone: [phone] P Offset 190 ms [facility] Work Phone: [phone] P Onset 153 ms [facility] Work Phone: [phone] PA Interval 134 ms [facility] Work Phone: [phone] Q Onset 220 ms [facility] Work Phone: [phone] QRS Count 11 beats [facility] Work Phone: [phone] QRS Duration 82 ms [facility] Work Phone: [phone] QT Interval 392 ms [facility] Work Phone: [phone] QTC Calculation(Bazett) 420 ms [facility] Work Phone: [phone] QTC Fredericia 410 ms [facility] Work Phone: [phone] R Butte 87 degrees [facility] Work Phone: T [place]te 52 degrees [facility] Work Phone: [phone] T Offset 416 ms [facility] Work Phone: [phone] Ventricular Rate 69 BPM [facility] Work Phone: [phone] Normal sinus rhythm Normal ECG When compared [...] Ramiro Hugo ([id number]) on 10/03/2023 2:39:06 PM [facility] Work Phone: [facility] Work Phone: ECG 12-LEADon 10-03-2023 ECG 12-LEAD Ventricular Rate 69 Atrial Rate 69 P-R Interval 134 QRS Duration 82 Q-T Interval 392 QTC Calculation(Bazett) 420 P Butte 44 R Butte 87 T Butte 52 QRS Count 11 Q Onset 220 P Onset 153 P Offset 190 T Offset 416 QTC Fredericia 410 Diagnosis Normal sinus rhythm Normal ECG When compared with ECG of 21-JUN-2023 08:13, Nonspecific T wave abnormality no longer evident in Inferior leads Confirmed by Ramiro Hugo ([id number]) on 10/03/2023 2:39:06 PM Normal [facility] Electrophysiology studyon Table formatting from the original result was not included. Supraventricular tachycardia ablation Procedures SVT Ablation (43176), Induction Post IV Drug Infusion (60682), 3D Mapping (99358), Ultrasound Guided vascular access (22141) Patient history: Please refer to the detailed [...] monitored anesthesia care (administered and monitored by doctor of nurse anesthesia and RETAIL SHIFT MANAGER). The bilateral femoral vein was accessed x [...] baseline heart rate QRS: 82ms, QT 392ms, PA 134ms, RR 870ms RA activation: High-to-low CS [...] symptoms, or recent severe chest pain) call [place]: [phone] See complete procedural log and parameters. SYNGO_SECTRA _CARDIOLAB_X PER [facility] Work Phone: Glucose Test strip manual (B ld) [Mass/Vol]on 10-03-2023 Glucose [Mass/Vol] 156 mg/dL High 74 - 99 mg/dL [facility] Interpretation and review of laboratory results Abnormal [facility] Glucose [Mass/Vol] 156 mg/dL High 74-99 [facility] Comment on above: Performed By: #### 2 341-6 #### LILI DE DIOS ([id number]) [facility] ([facility]) [address] [place] [address] Basic metabolic 2000 panelon 09-26-2023 Anion gap [Moles/Vol] 11 mmol/L Normal 10-20 [facility] Comment on above: Performed By: #### 2 4321-2 #### MELISSA WHITEHEAD ([id number]) [facility] ([facility]) [address] [place] [address] Calcium [Mass/Vol] 9.2 mg/dL Normal 8.6-10.3 [facility] Comment on above: Performed By: #### 2 4321-2 #### MELISSA WHITEHEAD ([id number]) [facility] ([facility]) [address] [place] [address] Chloride [Moles/Vol] 104 mmol/L Normal 98-107 [facility] Comment on above: Performed By: #### 2 4321-2 #### MELISSA WHITEHEAD ([id number]) [facility] ([facility]) [address] [place] [address] CO2 [Moles/Vol] 26 mmol/L Normal 21-32 [facility] Comment on above: Performed By: #### 2 4321-2 #### MELISSA WHITEHEAD ([id number]) [facility] ([facility]) [address] [place] [address] Creatinine [Mass/Vol] 0.68 mg/dL Normal 0.50-1.05 [facility] Comment on above: Performed By: #### 2 4321-2 #### MELISSA WHITEHEAD ([id number]) [facility] ([facility]) [address] [place] [address] GFR/1.73 sq M.predicted MDRD (S/P/Bld) [Vol rate/Area] mL/min/{1.73_m2} Normal >60 [facility] Comment on above: Result Comment: Calc ulations of estimated GFR are performed using the 2020 CKD-EPI Study Refit equation without the race variable for the IDMS-Traceable creatinine methods. https://jasn.asnjournals.org/content/early/ASN.2020 447108 Performed By: #### 2 4321-2 #### MELISSA WHITEHEAD ([id number]) [facility] ([facility]) [address] [place] [address] 33761 Glucose [Mass/Vol] 84 mg/dL Normal 74-99 [facility] Comment on above: Performed By: #### 2 4321-2 #### MELISSA WHITEHEAD ([id number]) [facility] ([facility]) [address] [place] [address]56[address] Potassium [Moles/Vol] 4.2 mmol/L Normal 3.5-5.3 [facility] Comment on above: Performed By: #### 2 4321-2 #### MELISSA WHITEHEAD ([id number]) [facility] ([facility]) [address] [place] [address] 76447 Sodium [Moles/Vol] 137 mmol/L Normal 136-145 [facility] Comment on above: Performed By: #### 2 4321-2 #### MELISSA WHITEHEAD ([id number]) [facility] ([facility]) [address] [place] [address] 28785 Urea nitrogen [Mass/Vol] 14 mg/dL Normal 6-23 [facility] Comment on above: Performed By: #### 2 4321-2 #### MELISSA WHITEHEAD ([id number]) [facility] ([facility]) [address] [place] [address] 75206 Beta 2 glycoprotein 1 Ab IgA and IgG and IgM panel (S)on 09-26-2023 Beta 2 glycoprotein 1 IgA Qn (S) <0.6 Normal <20.0 [facility] Comment on above: Result Comment: Elev ated [...] By: #### 5 6152-2 #### JASON Baker ([id number]) [facility] ([facility]) [address] [place], [place] [address] Beta 2 glycoprotein 1 IgG Qn (S) <1.4 Normal <20.0 [facility] Comment on above: Result Comment: Elev ated levels of IgG anti-Beta 2 Glycoprotein-I on 2 occasions at least 12 weeks apart are laboratory criteria for anti-phospholipid syndrome according to an international consensus (J Thromb Haemost 2006 4:295). Performed By: #### 5 6152-2 #### JASON Baker ([id number]) [facility] ([facility]) [address] [place], [place] [address] Beta 2 glycoprotein 1 IgM Qn (S) 0.2 U/mL Normal <20.0 [facility] Comment on above: Result Comment: Elev ated [...] By: #### 5 6152-2 #### JASON Baker ([id number]) [facility] ([facility]) [address] [place] [address]17 CBC panel Auto (Bld)on 09-25 Erythrocyte distribution width (RBC) [Ratio] 13.2 % Normal 11.5-14.5 [facility] Comment on above: Performed By: #### 5 8410-2 #### MELISSA WHITEHEAD ([id number]) [facility] ([facility]) [address] [place] [address] 16085 Hematocrit (Bld) [Volume fraction] 41.6 % Normal 36.0-46.0 [facility] Comment on above: Performed By: #### 5 8410-2 #### MELISSA WHITEHEAD ([id number]) [facility] ([facility]) [address] [place] [address] 03872 Hemoglobin (Bld) [Mass/Vol] 12.9 g/dL Normal 12.0-16.0 [facility] Comment on above: Performed By: #### 5 8410-2 #### MELISSA WHITEHEAD ([id number]) [facility] ([facility]) [address] [place] [address] 92968 MCH (RBC) [Entitic mass] 27.7 pg Normal 26.0-34.0 [facility] Comment on above: Performed By: #### 5 8410-2 #### MELISSA WHITEHEAD ([id number]) [facility] ([facility]) [address] [place] [address] 74961 MCHC (RBC) [Mass/Vol] 31.0 g/dL Low 32.0-36.0 [facility] Comment on above: Performed By: #### 5 8410-2 #### MELISSA WHITEHEAD ([id number]) [facility] ([facility]) [address] [place] [address] 85545 MCV (RBC) [Entitic vol] 90 fL Normal 80-[address] [facility] Comment on above: Performed By: #### 5 8410-2 #### MELISSA WHITEHEAD ([id number]) [facility] ([facility]) [address] [place] [address] 02234 Nucleated RBC/100 WBC (Bld) [Ratio] 0.0 /100 WBCs Normal 0.0-0.0 [facility] Comment on above: Performed By: #### 5 8410-2 #### MELISSA WHITEHEAD ([id number]) [facility] ([facility]) [address] [place] [address] Platelets (Bld) [#/Vol] 240 x10*3/uL Normal 150-450 [facility] Comment on above: Performed By: #### 5 8410-2 #### MELISSA WHITEHEAD ([id number]) [facility] ([facility]) [facility] [place] [address] RBC (Bld) [#/Vol] 4.65 x10*6/uL Normal 4.00-5.20 [facility] Comment on above: Performed By: #### 5 8410-2 #### MELISSA WHITEHEAD ([id number]) [facility] ([facility]) [address] [place] [address] 48901 WBC (Bld) [#/Vol] 6.9 x10*3/uL Normal 4.4-11.3 [facility] Comment on above: Performed By: #### 5 8410-2 #### MELISSA WHITEHEAD ([id number]) [facility] ([facility]) [address] [place] [address] 07532 Cardiolipin Ab IA Qn (S)on 0 09-26-2023 Cardiolipin IgA Qn <0.5 Normal <20.0 [facility] Comment on above: Result Comment: Elev ated levels of IgA anti-cardiolipin have not been included in the laboratory criteria for anti-phospholipid syndrome according to an international consensus (J Thromb Haemost 2006 4:295). It may be helpful in identifying subgroups of patients at risk for specific clinical manifestations of anti-phospholipid syndrome. Performed By: #### 3 180-7 #### JASON Baker ([id number]) [facility] ([facility]) [address] [place] [address] Cardiolipin IgG IA Qn (S) <1.6 Normal <20.0 [facility] Comment on above: Result Comment: Elev ated levels of IgG anti-cardiolipin on 2 occasions at least 12 weeks apart are laboratory criteria for anti-phospholipid syndrome according to an international consensus (J Thromb Haemost 2006 4:295). Performed By: #### 3 180-7 #### JASON Baker ([id number]) [facility] ([facility]) [address] [place] [address] Cardiolipin IgM IA Qn (S) 0.3 MPL U/mL Normal <20.0 [facility] Comment on above: Result Comment: Elev ated [...] By: #### 3 180-7 #### JASON Baker ([id number]) [facility] ([facility]) [address] [place] [address] Coagulation dilute Elio v iper venom induced/Coagulation dilute Elio viper venom induced.excess phospholipid^post DOAC neutralization^normalizedon 09-26-2023 Coagulation dilute Elio viper venom induced/Coagulation dilute Elio viper venom induced.excess phospholipid^^normalize d 0.99 RATIO Normal [facility] Comment on above: Performed By: #### 9 7641-5 #### JASON Baker ([id number]) [facility] ([facility]) [address] [place] [address] Coagulation dilute Elio viper venom induced/Coagulation dilute Elio viper venom induced.excess phospholipid^post DOAC neutralization^normaliz ed 0.90 RATIO Normal <=1.20 [facility] Comment on above: Performed By: #### 9 7641-5 #### JASON Baker ([id number]) [facility] ([facility]) [address] [place] [address] 46355 dRVVT/dRVVT.excess phospholipid Coag (PPP) [Ratio] 0.89 RATIO Normal [facility] Comment on above: Performed By: #### 9 7641-5 #### JSAON Baker ([id number]) [facility] ([facility]) [address] [place] [address] 18751 F5 gene p.Gak035Lak Molgen Q l (Bld/Tiss)on 09-26-2023 FACTOR V LEIDEN INTERPRETATION SEE COMMENT Normal [facility] Comment on above: Result Comment: INTE RPRETATION [...] that such approval is not necessary. The [facility] is CAP accredited and certified under the Clinical Laboratory Improvement Amendments of 1988 (CLIA-88) as qualified to perform high complexity testing. Performed By: #### 2 1668-9 #### VANNA GROSS ([id number]) [facility] ([facility]) [address] [place] [address] FACTOR V LEIDEN RESULT Normal Normal Normal [facility] Comment on above: Performed By: #### 2 1668-9 #### VANNA GROSS ([id number]) [facility] ([facility]) [address] [place] [address] Fibrin D-dimer FEUon 024 Fibrin D-dimer FEU (PPP) [Mass/Vol] <215 Normal <=500 [facility] Comment on above: Order Comment: The V TE Exclusion D-Dimer assay is reported in ng/mL Fibrinogen Equivalent Units (FEU). Per diesel truck crane operator's instructions for use, a value of less [...] By: #### 4 8065-7 #### TORRES VENTURA ([id number]) [facility] ([facility]) [address] [place] [address] PROTHROMBIN GENE MUTATION AN ALYSISon 09-26-2023 ELECTRONICALLY SIGNED BY Odalis Hensley MD PhD [facility] Normal [facility] Comment on above: Performed By: #### G PRO2 #### VANNA GROSS ([id number]) [facility] ([facility]) [address] [place] [address] Performed By: #### 2 1668-9 #### VANNA GROSS ([id number]) [facility] ([facility]) [address] [place] [address] FACTOR II-PROTHROMBIN INTERPRETATION SEE COMMENT Normal [facility] Comment on above: Result Comment: INTE RPRETATION NORMAL result indicates there is no detection of Prothrombin (F2) c.*97G>A (F14362O) pathogenic variant. There would not be increased risk for thrombosis that is associated with this mutation. METHODOLOGY DNA was extracted from the specimen provided and analyzed using allele-specific TaqMan MGB probes following PCR. DISCLAIMER This laboratory developed test was developed and its analytical performance characteristics have been determined by [facility]. This test has not been cleared or approved by the FDA; however, the FDA has determined that such approval is not necessary. The [facility] is CAP accredited and certified under the Clinical Laboratory Improvement Amendments of 1988 (CLIA-88) as qualified to perform high complexity testing. Performed By: #### G PRO2 #### VANNA GROSS ([id number]) [facility] ([facility]) [address] [place] [address] FACTOR II-PROTHROMBIN RESULT Normal Normal Normal [facility] Comment on above: Performed By: #### G PRO2 #### VANNA GROSS ([id number]) [facility] ([facility]) [address] [place] [address] CBC panel Auto (Bld)on 09-17 Erythrocyte distribution width (RBC) [Ratio] 13.3 % 11.5 - 15.0 % [facility] Hematocrit (Bld) [Volume fraction] 41.3 % 36.0 - 46.0 % [facility] Hemoglobin (Bld) [Mass/Vol] 13.5 g/dL 11.5 - 15.5 g/dL [facility] Interpretation and review of laboratory results Normal [facility] MCH (RBC) [Entitic mass] 28.3 pg 26.0 - 34.0 pg [facility] MCHC (RBC) [Mass/Vol] 32.7 g/dL 30.5 - 36.0 g/dL [facility] MCV (RBC) [Entitic vol] 86.6 fL 80.0 - 100.0 fL [facility] Nucleated RBC (Bld) [#/Vol] NINF [facility] Platelet mean volume (Bld) [Entitic vol] 11.9 fL 9.0 - 12.7 fL [facility] Platelets (Bld) [#/Vol] 188 10*3/uL [facility] RBC (Bld) [#/Vol] 4.77 10*6/uL 3.90 - 5.2 0 m/uL [facility] WBC (Bld) [#/Vol] 4.15 10*3/uL [facility] ANES POSTPROC EVALon 024 ANES POSTPROC EVAL HNO ID: [id number] Author: JOHANNA LAN MD Service: Anesthesiology Author [...] September 15, 2023 TIME: 11:56 AM CSN: [id number] [facility] ANES PRE-OPon 09-15-2023 ANES PRE-OP HNO ID: [id number] Author: JOHANNA LAN MD Service: Anesthesiology Author [...] September 15, 2023 TIME: 7:22 AM CSN: [id number] [facility] OPERATIVE NOon 09-15-2023 OPERATIVE NO HNO ID: [id number] Author: MARY JO CHANCE MD Service: Obstetrics Author Type: Physician Type: Operative Report Filed: 09/15/2023 10:07 Note Text: COMPLIANCE AIDE OPERATIVE/PROCEDURE REPORT LOG ID: [id number] Surgery/Procedure Date: 09/15/2023 Incision/Procedure Start Time: 8:51 AM Incision Close/Procedure End Time: 9:22 AM Surgeon(s)/Procedura list(s) and Threshing Machine Operator(s): Surgeon(s) and Role: * Mary Jo Chance MD - Primary * Christiansen, Xin, DO - Resident - Assisting * Jin Stuart DO - Resident - Assisting Registered Nurse Flight Follower: Megan Howell RN Informed Consent: Informed Consent [...] Gee MD Date: 09/15/2023 Time: 10:06 AM [facility] 09-02-2023 [facility] Telephone (PREANME) LESLIEKEAGAN GARCIA ([id number]) 4 F Date Time Provider Department 09/02/23 [...] (scheduled 10/03/23)? Thank you, Joyce Mishra PA-C [facility] Yamila Ballard MD 09/02/2023 1:36 PM Signed [...] the office. Surgery sheet given back to cook 3 pastry to cancel. KELLI Barrios Jennifer, RN 09/05/2023 1:10 PM Signed Patient called the office back after viewing [employer] message. States she never received any voicemail messages from our office. Confirmed that we had the correct phone number on file. Patient voiced her frustration. States her Rehabilitation Medicine Physician never stated that she would need to [...] light of patient's recent appointment with her mailhouse operator Dr. Fernando Noriega on 09/03/23 (AANDP [...] Continue follow-up with hematology -Echocardiogram done at [facility] showed normal LV and RV function with no valvular abnormalities -For her planned surgery if she stays as inpatient recommend for her to wear SCDs at all times and to use prophylactic subcutaneous heparin. Also discussed early mobilization to prevent VTE # SVT -Follow-up with electrophysiology for outpatient SVT ablation Norbert Fernandes MD [facility] Interventional Cardiology Endovascular Interventions [email or web address] [email or web address] As of Date: [...] Of Date (more content not included)... Normal [facility] Basic metabolic 2000 panelOr dered By: Jason Cordova on 09-01-2023 Anion gap [Moles/Vol] 8 mmol/L 8 - 15 mmol/L [facility] Calcium [Mass/Vol] 8.8 mg/dL 8.5 - 10. 2 mg/dL [facility] Chloride [Moles/Vol] 104 mmol/L 98 - 107 mmol/L [facility] CO2 [Moles/Vol] 25 mmol/L 22 - 30 mmol/L [facility] Creatinine [Mass/Vol] 0.75 mg/dL 0.58 - 0.96 mg/dL [facility] GFR/1.73 sq M.predicted among non-blacks MDRD (S/P/Bld) [Vol rate/Area] 117 mL/min/{1.73_m2} - PINF [facility] Comment on above: Estimated Glomerular Filtration Rate [...] [Mass/Vol] 92 mg/dL 74 - 99 mg/dL [facility] Comment on above: The [place] Diabete s Association (ADA) provides guidance for [...] Standards of Medical Care in Diabetes 2016, [place] Diabetes Association. Diabetes Care. 2016.39(Suppl 1). Interpretation and review of laboratory results Normal [facility] Potassium [Moles/Vol] 4.4 mmol/L 3.7 - 5.1 mmol/L [facility] Sodium [Moles/Vol] 137 mmol/L 136 - 144 mmol/L [facility] Urea nitrogen [Mass/Vol] 9 mg/dL 7 - 21 mg/dL [facility] CBC W Auto Differential pane l (Bld)on 09-01-2023 Basophils (Bld) [#/Vol] [facility] Basophils/100 WBC (Bld) 0.6 % [facility] Differential cell count method Nom (Bld) Auto [facility] Eosinophils (Bld) [#/Vol] [facility] Eosinophils/100 WBC (Bld) 0.3 % [facility] Erythrocyte distribution width (RBC) [Ratio] 13.6 % 11.5 - 15.0 % [facility] Hematocrit (Bld) [Volume fraction] 41.6 % 36.0 - 46.0 % [facility] Hemoglobin (Bld) [Mass/Vol] 13.5 g/dL 11.5 - 15.5 g/dL [facility] Immature granulocytes (Bld) [#/Vol] [facility] Immature granulocytes/100 WBC (Bld) 0.0 % [facility] Interpretation and review of laboratory results Abnormal [facility] Lymphocytes (Bld) [#/Vol] 1.48 10*3/uL [facility] Lymphocytes/100 WBC (Bld) 41.7 % [facility] MCH (RBC) [Entitic mass] 28.3 pg 26.0 - 34.0 pg [facility] MCHC (RBC) [Mass/Vol] 32.5 g/dL 30.5 - 36.0 g/dL [facility] MCV (RBC) [Entitic vol] 87.2 fL 80.0 - 100.0 fL [facility] Monocytes (Bld) [#/Vol] 0.38 10*3/uL [facility] Monocytes/100 WBC (Bld) 10.7 % C [facility] Neutrophils (Bld) [#/Vol] 1.66 10*3/uL [facility] Neutrophils/100 WBC (Bld) 46.7 % [facility] Nucleated RBC (Bld) [#/Vol] [facility] Nucleated RBC/100 WBC (Bld) [Ratio] 0.0 % /100 WBC [facility] Platelet mean volume (Bld) [Entitic vol] 11.9 fL 9.0 - 12.7 fL [facility] Platelets (Bld) [#/Vol] 181 10*3/uL [facility] RBC (Bld) [#/Vol] 4.77 10*6/uL 3.90 - 5.2 0 m/uL [facility] WBC (Bld) [#/Vol] 3.55 10*3/uL [facility] ECG 12 lead (Clinic Performe d)on 08-21-2023 Sinus rhythm ventricular rate 67 QRS 80 QT 396 QTc 418 *Please refer to scanned ECG for final report* [facility] Work Phone: UA DIP,URINE HCG (POC)on Beta HCG ( test) Ql (U) Negative Negative [facility] Comment on above: Location:[facility], [address], [place], [address] Cheese Wrapper (POCT) Internal QC OK [facility] Location:[facility], [address], [place], [address] [facility] POINT OF CARE [facility] US Pelvison 08-19-2023 Indication Pelvic pain, IUD [...] Read By: Herve Rea M.D. MATERNAL MEDICINE [facility] Radiology Study observation (narrative) [facility] US LOWER EXTREMITY VENO US DUPLEX BILATERALon 07-09-2023 [facility] US LOWER EXTREMITY [place] [address] [phone], Vascular Lab Report [facility] US LOWER EXTREMITY VENOUS DUPLEX BILATERAL Patient Name: KEAGAN RIZWANJama Reading Physician: [id number] Swanson MD Study Date: 07/09/2023 Ordering Provider: Andrew NORIEGA MRN/PID: [id number] Fellow: Technologist: Kath Rodriguez RVT/ Date of /Age: 8 2000 / 22 years Technologist 2: Gender: F Admission Status: Outpatient Location Performed: [facility] Diagnosis/ICD: Other pulmonary embolism without acute cor pulmonale-I26.99 CPT Codes: 93781 Peripheral venous duplex scan for DVT complete [...] Spontaneous/Phasic Peroneal Yes None PTV Yes None [id number] Norbert Swanson MD Final [facility] C. trachomatis+N. gonorrhoea e DNA SHYAM+probe Ql (Unsp spec)on 06-27-2023 C. trachomatis rRNA SHYAM+probe Ql (Unsp spec) Negative Negative for Chlamydia trachomatis by amplificaton [facility] Interpretation and review of laboratory results Normal [facility] N. gonorrhoeae rRNA SHYAM+probe Ql (Unsp spec) Negative Negative for Neisseria gonorrhoeae by amplification [facility] TRICHOMONAS VAGINALIS NAATon 06-27-2023 Interpretation and review of laboratory results Normal [facility] T. vaginalis DNA SHYAM+probe Ql (Unsp spec) Negative Negative for Trichomonas vaginalis by amplification [facility] Bacteria identifiedon 2023 Bacteria identified Cx Nom (U) Test: Urine Culture Specimen Source: Clean Catch/Voided Specimen Type: Urine Specimen Date: 06/24/20232045 Result Date: 06/26/2023802 Result Status: Final result Abnormal: No Resulting Lab: [facility] [address] [place] [address] CULTURE No growth [facility] Comment on above: Performed By: #### 2 4323-8 #### MELISSA WHITEHEAD ([id number]) [facility] ([facility]) [address] [place] [address] 58044 CBC panel Auto (Bld)on 06-23 Erythrocyte distribution width (RBC) [Ratio] 14.7 % High 11.5 - 14.5 % [facility] Hematocrit (Bld) [Volume fraction] 44.3 % 36.0 - 46.0 % [facility] Hemoglobin (Bld) [Mass/Vol] 14.6 g/dL 12.0 - 16.0 g/dL [facility] Interpretation and review of laboratory results Abnormal [facility] MCH (RBC) [Entitic mass] 28.6 pg 26.0 - 34.0 pg [facility] MCHC (RBC) [Mass/Vol] 33.0 g/dL 32.0 - 36.0 g/dL [facility] MCV (RBC) [Entitic vol] 87 fL 80 - 100 fL [facility] Nucleated RBC/100 WBC (Bld) [Ratio] 0.0 % [facility] Platelets (Bld) [#/Vol] 232 10*3/uL [facility] RBC (Bld) [#/Vol] 5.11 10*6/uL [facility] WBC (Bld) [#/Vol] 4.7 10*3/uL [facility] Erythrocyte distribution width (RBC) [Ratio] 14.7 % High 11.5-14.5 [facility] Comment on above: Performed By: #### 2 4323-8 #### MELISSA WHITEHEAD ([id number]) [facility] ([facility]) [address] [place] [address] 60456 Hematocrit (Bld) [Volume fraction] 44.3 % Normal 36.0-46.0 [facility] Comment on above: Performed By: #### 2 4323-8 #### MELISSA WHITEHEAD ([id number]) [facility] ([facility]) [address] [place] [address] 33665 Hemoglobin (Bld) [Mass/Vol] 14.6 g/dL Normal 12.0-16.0 [facility] Comment on above: Performed By: #### 2 4323-8 #### MELISSA WHITEHEAD ([id number]) [facility] ([facility]) [address] [place] [address] 81853 MCH (RBC) [Entitic mass] 28.6 pg Normal 26.0-34.0 [facility] Comment on above: Performed By: #### 2 432-8 #### MELISSA WHITEHEAD ([id number]) [facility] ([facility]) [address] [place] [address] 35521 MCHC (RBC) [Mass/Vol] 33.0 g/dL Normal 32.0-36.0 [facility] Comment on above: Performed By: #### 2 432-8 #### MELISSA WHITEHEAD ([id number]) [facility] ([facility]) [address] [place] [address] MCV (RBC) [Entitic vol] 87 fL Normal 80-100 U [facility] Comment on above: Performed By: #### 2 432-8 #### MELISSA WHITEHEAD ([id number]) [facility] ([facility]) [address] [place] [address] 63961 Nucleated RBC/100 WBC (Bld) [Ratio] 0.0 /100 WBCs Normal 0.0-0.0 [facility] Comment on above: Performed By: #### 2 4323-8 #### MELISSA WHITEHEAD ([id number]) [facility] ([facility]) [address] [place] [address] 86342 Platelets (Bld) [#/Vol] 232 x10*3/uL Normal 150-450 [facility] Comment on above: Performed By: #### 2 432-8 #### MELISSA WHITEHEAD ([id number]) [facility] ([facility]) [address] [place] [address] 22640 RBC (Bld) [#/Vol] 5.11 x10*6/uL Normal 4.00-5.20 [facility] Comment on above: Performed By: #### 2 4323-8 #### TORRES VENTURA ([id number]) [facility] ([facility]) [address] [place] [address] WBC (Bld) [#/Vol] 4.7 x10*3/uL Normal 4.4-11.3 [facility] Comment on above: Performed By: #### 2 4323-8 #### TORRES VENTURA ([id number]) [facility] ([facility]) [address] [place] [id number] ABDOMEN PELVIS W IV CONTR [place] 06-24-2023 CT ABDOMEN PELVIS W IV CONTRAST Interpreted By: Christa Gagnon, STUDY: CT ABDOMEN PELVIS W IV CONTRAST; 06/24/2023 8:08 pm INDICATION: Signs/Symptoms:pain. COMPARISON: 06/19/2023 ACCESSION NUMBER(S): [id number] ORDERING CLINICIAN: MEGAN BERG TECHNIQUE: Axial CT [...] Christa Gagnon 06/24/2023 9:10 PM Dictation workstation: [id number] [facility] CT Abdomen and Pelvis W cont rast Anjali 06-24-2023 Postsurgical changes of recent cholecystectomy. No fluid collection in the surgical bed. No evidence of acute abdominal or pelvic abnormality. Acute subsegmental pulmonary embolism in the right lower lobe, described on PE CT dated 06/21/2023. MACRO: None Signed by: Christa Gagnon 06/24/2023 9:10 PM Dictation workstation: [id number] Interpreted By: Christa Gagnon, STUDY: CT ABDOMEN PELVIS W IV CONTRAST; 06/24/2023 8:08 pm INDICATION: Signs/Symptoms:pain. COMPARISON: 06/19/2023 ACCESSION NUMBER(S): [id number] ORDERING CLINICIAN: MEGAN BERG TECHNIQUE: Axial CT [...] pm INDICATION: Signs/Symptoms:pain. COMPARISON: 06/19/2023 ACCESSION NUMBER(S): [id number] ORDERING CLINICIAN: MEGAN BERG TECHNIQUE: Axial CT [...] Christa Gagnon 06/24/2023 9:10 PM Dictation workstation: [id number] [facility] Work Phone: Radiology Study observation (narrative) [facility] Work Phone: CT Abdomen and Pelvis W cont rast IVOrdered By: Christa Gagnon on 06-24-2023 [facility] Work Phone: Choriogonadotropin.beta subu niton 06-24-2023 HCG.beta subunit Qn m[IU]/mL Normal <5 [facility] Comment on above: Order Comment: Total HCG measurement is performed using the Marcello Fabiano Access Immunoassay which detects intact HCG and free beta HCG subunit. This test is not indicated for use as a tumor marker. HCG testing is performed using a different test methodology at [facility] than other [facility]. Direct result comparison should only be made within the same method. Performed By: #### 2 4323-8 #### MELISSA WHITEHEAD ([id number]) [facility] ([facility]) [address] [place], [place] [address] Coagulation tissue factor in ducedon 06-24-2023 PT Coag (PPP) [Time] 21.2 s High 9.8-12.8 [facility] Comment on above: Performed By: #### 2 4323-8 #### MELISSA WHITEHEAD ([id number]) [facility] ([facility]) [address] [place], [place] [address] Comprehensive metabolic 2000 panelon 06-24-2023 Albumin BCP dye [Mass/Vol] 4.8 g/dL 3.4 - 5.0 g/dL [facility] ALP [Catalytic activity/Vol] 54 U/L 33 - 110 U/L [facility] ALT With P-5'-P [Catalytic activity/Vol] 20 U/L 7 - 45 U/L [facility] Comment on above: Patients treated wit h Sulfasalazine may generate falsely decreased results for ALT. Anion gap [Moles/Vol] 19 mmol/L 10 - 20 mmol/L [facility] AST With P-5'-P [Catalytic activity/Vol] 15 U/L 9 - 39 U/L [facility] Bilirubin [Mass/Vol] 0.7 mg/dL 0.0 - 1.2 mg/dL [facility] Calcium [Mass/Vol] 9.3 mg/dL 8.6 - 10. 3 mg/dL [facility] Chloride [Moles/Vol] 99 mmol/L 98 - 107 mmol/L [facility] CO2 [Moles/Vol] 20 mmol/L Low 21 - 32 mmol/L [facility] Creatinine [Mass/Vol] 0.63 mg/dL 0.50 - 1.05 mg/dL [facility] eGFR - PINF [facility] Comment on above: Calculations of nick mated GFR are performed using the 2020 CKD-EPI Study Refit equation without the race variable for the IDMS-Traceable creatinine methods. https://jasn.asnjournals.org/content/early/ASN.2020 579041 Glucose [Mass/Vol] 61 mg/dL Low 74 - 99 mg/dL [facility] Interpretation and review of laboratory results Abnormal [facility] Potassium [Moles/Vol] 3.9 mmol/L 3.5 - 5.3 mmol/L [facility] Protein [Mass/Vol] 7.2 g/dL 6.4 - 8.2 g/dL Un [facility] Sodium [Moles/Vol] 134 mmol/L Low 136 - 145 mmol/L [facility] Urea nitrogen [Mass/Vol] 7 mg/dL 6 - 23 mg/dL [facility] Albumin BCP dye [Mass/Vol] 4.8 g/dL Normal 3.4-5.0 [facility] Comment on above: Performed By: #### 2 4323-8 #### MELISSA WHITEHEAD ([id number]) [facility] ([facility]) [address] [place] [address] ALP [Catalytic activity/Vol] 54 U/L Normal 33-110 [facility] Comment on above: Performed By: #### 2 4323-8 #### MELISSA WHITEHEAD ([id number]) [facility] ([facility]) [address] [place] [address] ALT With P-5'-P [Catalytic activity/Vol] 20 U/L Normal 7-45 [facility] Comment on above: Result Comment: Gema ents treated with Sulfasalazine may generate falsely decreased results for ALT. Performed By: #### 2 4323-8 #### MELISSA WHITEHEAD ([id number]) [facility] ([facility]) [address] [place] [address] Anion gap [Moles/Vol] 19 mmol/L Normal 10-20 [facility] Comment on above: Performed By: #### 2 4323-8 #### MELISSA WHITEHEAD ([id number]) [facility] ([facility]) [address] [place] [address] AST With P-5'-P [Catalytic activity/Vol] 15 U/L Normal 9-39 [facility] Comment on above: Performed By: #### 2 4323-8 #### MELISSA WHITEHEAD ([id number]) [facility] ([facility]) [address] [place] [address] Bilirubin [Mass/Vol] 0.7 mg/dL Normal 0.0-1.2 [facility] Comment on above: Performed By: #### 2 4322-8 #### MELISSA WHITEHEAD ([id number]) [facility] ([facility]) [address] [place] [address] Calcium [Mass/Vol] 9.3 mg/dL Normal 8.6-10.3 [facility] Comment on above: Performed By: #### 2 4322-8 #### MELISSA WHITEHEAD ([id number]) [facility] ([facility]) [address] [place] [address] Chloride [Moles/Vol] 99 mmol/L Normal 98-107 [facility] Comment on above: Performed By: #### 2 432-8 #### MELISSA WHITEHEAD ([id number]) [facility] ([facility]) [address] [place] [address] CO2 [Moles/Vol] 20 mmol/L Low 21-32 [facility] Comment on above: Performed By: #### 2 4323-8 #### MELISSA WHITEHEAD ([id number]) [facility] ([facility]) [address] [place] [address] Creatinine [Mass/Vol] 0.63 mg/dL Normal 0.50-1.05 [facility] Comment on above: Performed By: #### 2 4323-8 #### MELISSA WHITEHEAD ([id number]) [facility] ([facility]) [address] [place] [address] GFR/1.73 sq M.predicted MDRD (S/P/Bld) [Vol rate/Area] mL/min/{1.73_m2} Normal >60 [facility] Comment on above: Result Comment: Calc ulations of estimated GFR are performed using the 2020 CKD-EPI Study Refit equation without the race variable for the IDMS-Traceable creatinine methods. https://jasn.asnjournals.org/content/early/ASN.2020 704192 Performed By: #### 2 4323-8 #### MELISSA WHITEHEAD ([id number]) [facility] ([facility]) [address] [place] [address] Glucose [Mass/Vol] 61 mg/dL Low 74-99 [facility] Comment on above: Performed By: #### 2 4323-8 #### MELISSA WHITEHEAD ([id number]) [facility] ([facility]) [address] [place] [address] Potassium [Moles/Vol] 3.9 mmol/L Normal 3.5-5.3 [facility] Comment on above: Performed By: #### 2 4323-8 #### MELISSA WHITEHEAD ([id number]) [facility] ([facility]) [address] [place] [address] Protein [Mass/Vol] 7.2 g/dL Normal 6.4-8.2 [facility] Comment on above: Performed By: #### 2 4323-8 #### MELISSA WHITEHEAD ([id number]) [facility] ([facility]) [address] [place] [address] Sodium [Moles/Vol] 134 mmol/L Low 136-145 [facility] Comment on above: Performed By: #### 2 4323-8 #### MELISSA WHITEHEAD ([id number]) [facility] ([facility]) [address] [place] [address] Urea nitrogen [Mass/Vol] 7 mg/dL Normal 6-23 [facility] Comment on above: Performed By: #### 2 4323-8 #### MELISSA WHITEHEAD ([id number]) [facility] ([facility]) [facility] [place] [address] HCG.beta subunit Qnon 2023 Interpretation and review of laboratory results Normal [facility] Total HCG measurement is performed using the Marcello Fabiano Access Immunoassay which detects intact HCG and free beta HCG subunit. This test is not indicated for use as a tumor marker. HCG testing is performed using a different test methodology at [facility] than other [facility]. Direct result comparison should only be made within the same method. [facility] PT Coag (PPP) [Time]on 06-23 INR Coag (PPP) [Relative time] 1.9 {INR} High 0.9 - 1.1 [facility] Interpretation and review of laboratory results Abnormal [facility] INR Coag (PPP) [Relative time] 1.9 High 0.9-1.1 [facility] Comment on above: Performed By: #### 2 4323-8 #### MELISSA WHITEHEAD ([id number]) [facility] ([facility]) [facility] [place] [address] Protime-INRon 06-24-2023 PT Coag (PPP) [Time] 21.2 s High [facility] Urinalysis complete W Reflex Culture panel (U)on 06-24-2023 Epithelial cells.squamous Auto (Urine sed) [#/Area] 1-9 (SPARSE) Reference range not established. /HPF [facility] Interpretation and review of laboratory results Abnormal [facility] RBC Auto (Urine sed) [#/Area] >20 Abnormal NONE, 1-2, 3-5 /HPF [facility] WBC Auto (Urine sed) [#/Area] 6-10 Abnormal 1-5, NONE /HPF [facility] Appearance (U) Hazy Normal Clear [facility] Comment on above: Performed By: #### 2 4323-8 #### MELISSA WHITEHEAD ([id number]) [facility] ([facility]) [address] [place] [address] Bilirubin (U) [Mass/Vol] Negative Normal NEGATIVE [facility] Comment on above: Performed By: #### 2 4323-8 #### MELISSA WHITEHEAD ([id number]) [facility] ([facility]) [address] [place], [place] [address] Color (U) Idalmis Normal Straw, Yellow [facility] Comment on above: Performed By: #### 2 4323-8 #### MELISSA WHITEHEAD ([id number]) [facility] ([facility]) [address] [place] [address] Epithelial cells.squamous Auto (Urine sed) [#/Area] 1-9 (SPARSE) Normal Reference range not established. [facility] Comment on above: Performed By: #### 2 4323-8 #### MELISSA WHITEHEAD ([id number]) [facility] ([facility]) [address] [place], [place] [address] Glucose Auto test strip (U) [Mass/Vol] Negative Normal NEGATIVE [facility] Comment on above: Performed By: #### 2 4323-8 #### MELISSA WHITEHEAD ([id number]) [facility] ([facility]) [address] [place] [address] Ketones (U) [Mass/Vol] 80 (2+) Abnormal NEGATIVE [facility] Comment on above: Performed By: #### 2 4323-8 #### MELISSA WHITEHEAD ([id number]) [facility] ([facility]) [address] [place] [address] Leukocyte esterase Auto test strip Ql (U) Negative Normal NEGATIVE [facility] Comment on above: Performed By: #### 2 4323-8 #### MELISSA WHITEHEAD ([id number]) [facility] ([facility]) [address] [place] [address] 17714 Nitrite Auto test strip Ql (U) Negative Normal NEGATIVE [facility] Comment on above: Performed By: #### 2 4323-8 #### MELISSA WHITEHEAD ([id number]) [facility] ([facility]) [address] [place] [address] 35993 pH (U) 6.0 [pH] Normal 5.0, 5.5, 6.0, 6.5, 7.0, 7.5, 8.0 [facility] Comment on above: Performed By: #### 2 4323-8 #### MELISSA WHITEHEAD ([id number]) [facility] ([facility]) [address] [place] [address]15[address] Protein (U) [Mass/Vol] 100 (2+) Normal NEGATIVE [facility] Comment on above: Performed By: #### 2 4323-8 #### MELISSA WHITEHEAD ([id number]) [facility] ([facility]) [address] [place] [address] 97[address] RBC (U) [#/Vol] LARGE (3+) Abnormal NEGATIVE [facility] Comment on above: Performed By: #### 2 4322-8 #### MELISSA WHITEHEAD ([id number]) [facility] ([facility]) [address] [place] [address] 18675 RBC Auto (Urine sed) [#/Area] >20 Abnormal NONE, 1-2, 3-5 [facility] Comment on above: Performed By: #### 2 4322-8 #### MELISSA WHITEHEAD ([id number]) [facility] ([facility]) [address] [place] [address] 94183 Specific gravity (U) [Rel density] 1.038 Normal 1.005-1.035 [facility] Comment on above: Performed By: #### 2 3-8 #### MELISSA WHITEHEAD ([id number]) [facility] ([facility]) [address] [place] [address] Urobilinogen (U) [Mass/Vol] mg/dL Normal <2.0 [facility] Comment on above: Performed By: #### 2 3-8 #### MELISSA WHITEHEAD ([id number]) [facility] ([facility]) [address] [place] [address] 82061 WBC Auto (Urine sed) [#/Area] 6-10 Abnormal 1-5, NONE [facility] Comment on above: Performed By: #### 2 3-8 #### MELISSA WHITEHEAD ([id number]) [facility] ([facility]) [address] [place] [address] Urinalysis complete W Reflex Culture panel (U)Ordered By: Jacinta Armenta on 06-24-2023 Appearance (U) Hazy Abnormal Clear [facility] Bilirubin (U) [Mass/Vol] Negative NEGATIVE [facility] Color (U) Idalmis Abnormal Straw, Yellow [facility] Glucose Auto test strip (U) [Mass/Vol] Negative NEGATIVE mg/dL [facility] Interpretation and review of laboratory results Abnormal [facility] Ketones (U) [Mass/Vol] 80 (2+) Abnormal NEGATIVE mg/d L [facility] Leukocyte esterase Auto test strip Ql (U) Negative NEGATIVE [facility] Nitrite Auto test strip Ql (U) Negative NEGATIVE [facility] pH (U) 6.0 [pH] 5.0, 5.5, 6.0, 6.5, 7.0, 7.5, 8.0 [facility] Protein (U) [Mass/Vol] 100 (2+) Abnormal NEGATIVE mg/d L [facility] RBC (U) [#/Vol] LARGE (3+) Abnormal NEGATIVE [facility] Specific gravity (U) [Rel density] 1.038 Abnormal 1.005 - 1.035 [facility] Urobilinogen (U) [Mass/Vol] mg/dL NINF - 2.0 mg/dL [facility] hCG, quantitative, on 06-24-2023 HCG.beta subunit Qn NINF [facility] BETA HCG, QUANTITATIVE FOR E Don 06-22-2023 HCG.beta subunit Qn m[IU]/mL Normal <5.0 [facility] Comment on above: Order Comment: Speci men Type: BLOOD SPECIMEN Ordering Facility: [facility] Address: [address] [place] [address] Result Comment: Darrion moreno Performed By: #### H CGED #### [facility] CLIA [id number] [address] [place] [address] [place] CBC W Auto Differential pane l (Bld)on 06-22-2023 Basophils (Bld) [#/Vol] 0.03 10*3/uL Normal <0.11 [facility] Comment on above: Order Comment: Speci men Type: BLOOD SPECIMEN Ordering Facility: [facility] Address: [address] [place] [address] Performed By: #### 3 3762-6, 29926-7, 27151-1, 3040-3, HSTNT #### [facility] CLIA [id number] [address] [place] [address] [place] Basophils/100 WBC (Bld) 0.6 % Normal [facility] Comment on above: Order Comment: Speci men Type: BLOOD SPECIMEN Ordering Facility: [facility] Address: [address] [place] [address] Performed By: #### 3 3762-6, 83162-1, 82000-4, 3040-3, HSTNT #### [facility] CLIA [id number] [address] [place] [address] [place] Differential cell count method Nom (Bld) Auto Normal [facility] Comment on above: Order Comment: Speci men Type: BLOOD SPECIMEN Ordering Facility: [facility] Address: [address] [place] [address] Performed By: #### 3 3762-6, 88749-1, 85120-3, 3040-3, HSTNT #### [facility] CLIA [id number] [address] [place] [address] [place] Eosinophils (Bld) [#/Vol] 0.20 10*3/uL Normal <0.46 [facility] Comment on above: Order Comment: Speci men Type: BLOOD SPECIMEN Ordering Facility: [facility] Address: [address] [place] [address] Performed By: #### 3 3762-6, 10164-3, 80951-4, 3040-3, HSTNT #### [facility] CLIA [id number] [address] [place] Eosinophils/100 WBC (Bld) 3.8 % Normal [facility] Comment on above: Order Comment: Speci men Type: BLOOD SPECIMEN Ordering Facility: [facility] Address: [address] [place] [address] Performed By: #### 3 3762-6, 90709-0, 85443-2, 3040-3, HSTNT #### [facility] CLIA [id number] [address] [place] [address] [place] Erythrocyte distribution width (RBC) [Ratio] 14.6 % Normal 11.5-15.0 [facility] Comment on above: Order Comment: Speci men Type: BLOOD SPECIMEN Ordering Facility: [facility] Address: [address] [place] [address] Performed By: #### 3 3762-6, 51910-0, 55969-2, 3040-3, HSTNT #### [facility] CLIA [id number] [address] [place] Hematocrit (Bld) [Volume fraction] 42.1 % Normal 36.0-46.0 [facility] Comment on above: Order Comment: Speci men Type: BLOOD SPECIMEN Ordering Facility: [facility] Address: [address] [place] [address] Performed By: #### 3 3762-6, 39571-0, 41884-5, 3040-3, HSTNT #### [facility] CLIA [id number] [address] [place] [address] [place] Hemoglobin (Bld) [Mass/Vol] 14.0 g/dL Normal 11.5-15.5 [facility] Comment on above: Order Comment: Speci men Type: BLOOD SPECIMEN Ordering Facility: [facility] Address: [address] [place] [address] Performed By: #### 3 3762-6, 58312-7, 39036-7, 3040-3, HSTNT #### [facility] CLIA [id number] [address] [place] [address] [place] Immature granulocytes (Bld) [#/Vol] 10*3/uL Normal <0.10 [facility] Comment on above: Order Comment: Speci men Type: BLOOD SPECIMEN Ordering Facility: [facility] Address: [address] [place] [address] Performed By: #### 3 3762-6, 51974-1, 04687-7, 3040-3, HSTNT #### [facility] CLIA [id number] [address] [place] Immature granulocytes/100 WBC (Bld) 0.2 % Normal [facility] Comment on above: Order Comment: Speci men Type: BLOOD SPECIMEN Ordering Facility: [facility] Address: [address] [place] [address] Performed By: #### 3 3762-6, 69767-4, 90430-2, 3040-3, HSTNT #### [facility] CLIA [id number] [address] [place] [address] [place] Lymphocytes (Bld) [#/Vol] 2.05 10*3/uL Normal 1.00-4.00 [facility] Comment on above: Order Comment: Speci men Type: BLOOD SPECIMEN Ordering Facility: [facility] Address: [address] [place] [address] Performed By: #### 3 3762-6, 95569-0, 12140-7, 3040-3, HSTNT #### [facility] CLIA [id number] [address] [place] Lymphocytes/100 WBC (Bld) 38.5 % Normal [facility] Comment on above: Order Comment: Speci men Type: BLOOD SPECIMEN Ordering Facility: [facility] Address: [address] [place] [address] Performed By: #### 3 3762-6, 77906-8, 30777-3, 3040-3, HSTNT #### [facility] CLIA [id number] [address] [place] [address] [place] MCH (RBC) [Entitic mass] 28.4 pg Normal 26.0-34.0 [facility] Comment on above: Order Comment: Speci men Type: BLOOD SPECIMEN Ordering Facility: [facility] Address: [address] [place] [address] Performed By: #### 3 3762-6, 28508-8, 62574-8, 3040-3, HSTNT #### [facility] CLIA [id number] [address] [place] [address] [place] MCHC (RBC) [Mass/Vol] 33.3 g/dL Normal 30.5-36.0 [facility] Comment on above: Order Comment: Speci men Type: BLOOD SPECIMEN Ordering Facility: [facility] Address: [address] [place] [address] Performed By: #### 3 3762-6, 26773-9, 75486-5, 3040-3, HSTNT #### [facility] CLIA [id number] [address] [place] [address] [place] MCV (RBC) [Entitic vol] 85.4 fL Normal 80.0-100.0 [facility] Comment on above: Order Comment: Speci men Type: BLOOD SPECIMEN Ordering Facility: [facility] Address: [address] [place] [address] Performed By: #### 3 3762-6, 22403-2, 38557-4, 3040-3, HSTNT #### [facility] CLIA [id number] [address] [place] [address] [place] Monocytes (Bld) [#/Vol] 0.31 10*3/uL Normal <0.87 [facility] Comment on above: Order Comment: Speci men Type: BLOOD SPECIMEN Ordering Facility: [facility] Address: [address] [place] [address] Performed By: #### 3 3762-6, 16279-9, 57444-2, 3040-3, HSTNT #### [facility] CLIA [id number] [address] [place] [address] [place] Monocytes/100 WBC (Bld) 5.8 % Normal [facility] Comment on above: Order Comment: Speci men Type: BLOOD SPECIMEN Ordering Facility: [facility] Address: [address] [place] [address] Performed By: #### 3 3762-6, 18263-2, 79082-2, 3040-3, HSTNT #### [facility] CLIA [id number] [address] [place] [address] [place] Neutrophils (Bld) [#/Vol] 2.72 10*3/uL Normal 1.45-7.50 [facility] Comment on above: Order Comment: Speci men Type: BLOOD SPECIMEN Ordering Facility: [facility] Address: [address] [place] [address] Performed By: #### 3 3762-6, 51226-1, 77127-7, 3040-3, HSTNT #### [facility] CLIA [id number] [address] [place] [address] [place] Neutrophils/100 WBC (Bld) 51.1 % Normal [facility] Comment on above: Order Comment: Speci men Type: BLOOD SPECIMEN Ordering Facility: [facility] Address: [address] [place] [address] Performed By: #### 3 3762-6, 66562-3, 12752-7, 3040-3, HSTNT #### [facility] CLIA [id number] [address] [place] [address] [place] Nucleated RBC (Bld) [#/Vol] 10*3/uL Normal <0.01 [facility] Comment on above: Order Comment: Speci men Type: BLOOD SPECIMEN Ordering Facility: [facility] Address: [address] [place] [address] Performed By: #### 3 3762-6, 45724-9, 49107-9, 3040-3, HSTNT #### [facility] CLIA [id number] [address] [place] [address] [place] Nucleated RBC/100 WBC (Bld) [Ratio] 0.0 /100 WBC Normal [facility] Comment on above: Order Comment: Speci men Type: BLOOD SPECIMEN Ordering Facility: [facility] Address: [address] [place] [address] Performed By: #### 3 3762-6, 35558-2, 08817-9, 3040-3, HSTNT #### [facility] CLIA [id number] [address] [place] [address] [place] Platelet mean volume (Bld) [Entitic vol] 11.4 fL Normal 9.0-12.7 [facility] Comment on above: Order Comment: Speci men Type: BLOOD SPECIMEN Ordering Facility: [facility] Address: [address] [place] [address] Performed By: #### 3 3762-6, 04439-7, 23115-9, 3040-3, HSTNT #### [facility] CLIA [id number] [address] [place] [address] [place] Platelets (Bld) [#/Vol] 210 10*3/uL Normal 150-400 [facility] Comment on above: Order Comment: Speci men Type: BLOOD SPECIMEN Ordering Facility: [facility] Address: [address] [place] [address] Performed By: #### 3 3762-6, 89520-4, 33028-7, 3040-3, HSTNT #### [facility] CLIA [id number] [address] [place] [address] [place] RBC (Bld) [#/Vol] 4.93 10*6/uL Normal 3.90-5.20 [facility] Comment on above: Order Comment: Speci men Type: BLOOD SPECIMEN Ordering Facility: [facility] Address: [address] [place] [address] Performed By: #### 3 3762-6, 35178-1, 05074-9, 3040-3, HSTNT #### [facility] CLIA [id number] [address] [place] [address] [place] WBC (Bld) [#/Vol] 5.32 10*3/uL Normal 3.70-11.00 [facility] Comment on above: Order Comment: Speci men Type: BLOOD SPECIMEN Ordering Facility: [facility] Address: [address] [place] [address] Performed By: #### 3 3762-6, 44824-9, 70382-2, 3040-3, HSTNT #### [facility] CLIA [id number] [address] [place] [address] [place] [address] ABD/PEL W IVCONon 024 CT ABD/PEL W IVCON * * *Final Report* * * DATE OF EXAM: Jun 22 2023 2:12PM [facility] [place]BD/PEL W IVCON / [...] of an acute intra-abdominal or pelvic process [employer] Repairer: MARIETTA Transcribe Date/Time: Jun 22 2023 2:23P Dictated by : BRISSA FAIRBANKS MD This examination was interpreted and the report reviewed and electronically signed by: BRISSA FAIRBANKS MD on Jun 22 2023 2:29PM EST [id number] CN Normal [facility] Comprehensive metabolic 2000 panelon 06-22-2023 Albumin [Mass/Vol] 4.4 g/dL Normal 3.9-4.9 [facility] Comment on above: Order Comment: Speci men Type: BLOOD SPECIMEN Ordering Facility: [facility] Address: [address] [place] [address] Performed By: #### 3 3762-6, 10052-0, 57677-3, 3040-3, HSTNT #### [facility] CLIA [id number] [address] [place] [address] [place] ALP [Catalytic activity/Vol] 61 U/L Normal 34-123 [facility] Comment on above: Order Comment: Speci men Type: BLOOD SPECIMEN Ordering Facility: [facility] Address: [address] [place] [address] Performed By: #### 3 3762-6, 49413-6, 62979-1, 3040-3, HSTNT #### [facility] CLIA [id number] [address] [place] [address] [place] ALT [Catalytic activity/Vol] 27 U/L Normal 7-38 [facility] Comment on above: Order Comment: Speci men Type: BLOOD SPECIMEN Ordering Facility: [facility] Address: [address] [place] [address] Performed By: #### 3 3762-6, 67520-1, 75672-8, 3040-3, HSTNT #### [facility] CLIA [id number] [address] [place] [address] [place] Anion gap [Moles/Vol] 15 mmol/L Normal 9-18 [facility] Comment on above: Order Comment: Speci men Type: BLOOD SPECIMEN [facility]ing Facility: [facility] Address: [address] [place] [address] Performed By: #### 3 3762-6, 29653-2, 82924-8, 3040-3, HSTNT #### [facility] CLIA [id number] [address] [place] [address] [place] AST [Catalytic activity/Vol] 18 U/L Normal 13-35 [facility] Comment on above: Order Comment: Speci men Type: BLOOD SPECIMEN [facility]ing [facility]: [facility] Address: [address] [place] [address] Performed By: #### 3 3762-6, 54472-3, 35027-9, 3040-3, HSTNT #### [facility] CLIA [id number] [address] [place] [address] [place] Bilirubin [Mass/Vol] 0.6 mg/dL Normal 0.2-1.3 [facility] Comment on above: Order Comment: Speci men Type: BLOOD SPECIMEN Ordering Facility: [facility] Address: [address] [place] [address] Performed By: #### 3 3762-6, 64227-1, 04129-9, 3040-3, HSTNT #### [facility] CLIA [id number] [address] [place] [address] [place] Calcium [Mass/Vol] 9.1 mg/dL Normal 8.5-10.2 [facility] Comment on above: Order Comment: Speci men Type: BLOOD SPECIMEN Ordering [facility]: [facility] Address: [address] [place] [address] Performed By: #### 3 3762-6, 20503-9, 82693-5, 3040-3, HSTNT #### [facility] CLIA [id number] [address] [place] [address] [place] Chloride [Moles/Vol] 99 mmol/L Normal 97-105 [facility] Comment on above: Order Comment: Speci men Type: BLOOD SPECIMEN Ordering [facility]: [facility] Address: [address] [place] [address] Performed By: #### 3 3762-6, 44799-3, 29466-0, 3040-3, HSTNT #### [facility] CLIA [id number] [address] [place] [address] [place] CO2 [Moles/Vol] 22 mmol/L Normal 22-30 [facility] Comment on above: Order Comment: Speci men Type: BLOOD SPECIMEN Ordering [facility]: [facility] Address: [address] [place] [address] Performed By: #### 3 3762-6, 62909-8, 68564-9, 3040-3, HSTNT #### [facility] CLIA [id number] [address] [place] [address] [place] Creatinine [Mass/Vol] 0.68 mg/dL Normal 0.58-0.96 [facility] Comment on above: Order Comment: Speci men Type: BLOOD SPECIMEN Ordering Facility: [facility] Address: [address] [place] [address] Performed By: #### 3 3762-6, 06623-8, 18372-4, 3040-3, HSTNT #### [facility] CLIA [id number] [address] STATES OF [facility] Creatinine and Glomerular filtration rate.predicted panel (S/P/Bld) 128 mL/min/1.73m??? Normal >=60 [facility] Comment on above: Order Comment: Kayli moon Type: BLOOD SPECIMEN Ordering Facility: [facility] Address: [address] [place] [address] Result Comment: Nick mated Glomerular Filtration Rate [...] actual GFR. Performed By: #### 3 3762-6, 49157-8, 46726-6, 3040-3, HSTNT #### [facility] CLIA [id number] [address] [place] [address] [place] Glucose [Mass/Vol] 67 mg/dL Low 74-99 [facility] Comment on above: Order Comment: Kayli moon Type: BLOOD SPECIMEN Ordering [facility]: [facility] Address: [address] [place] [address] Result Comment: The [place] [employer] (ADA) provides guidance for cutoff [...] Standards of Medical Care in Diabetes 2016, [place] [employer]. Diabetes Care. 2016.39(Suppl 1). Performed By: #### 3 3762-6, 33147-0, 61322-2, 3040-3, HSTNT #### [facility] CLIA [id number] [address] [place] [address] [place] Potassium [Moles/Vol] 3.6 mmol/L Low 3.7-5.1 [facility] Comment on above: Order Comment: Speci men Type: BLOOD SPECIMEN Ordering [facility]: [facility] Address: [address] [place] [address] Performed By: #### 3 3762-6, 12822-7, 39031-4, 3040-3, HSTNT #### [facility] CLIA [id number] [address] [place] [address] [place] Protein [Mass/Vol] 6.9 g/dL Normal 6.3-8.0 [facility] Comment on above: Order Comment: Speci men Type: BLOOD SPECIMEN Ordering [facility]: [facility] Address: [address] [place] [address] Performed By: #### 3 3762-6, 86190-2, 30911-7, 3040-3, HSTNT #### [facility] CLIA [id number] [address] [place] [address] [place] Sodium [Moles/Vol] 136 mmol/L Normal 136-144 [facility] Comment on above: Order Comment: Speci men Type: BLOOD SPECIMEN Ordering [facility]: [facility] Address: [address] [place] [address] Performed By: #### 3 3762-6, 51275-9, 70526-8, 3040-3, HSTNT #### [facility] CLIA [id number] [address] [place] [address] [place] Urea nitrogen [Mass/Vol] 9 mg/dL Normal 7-21 [facility] Comment on above: Order Comment: Speci men Type: BLOOD SPECIMEN Ordering [facility]: [facility] Address: [address] [place] [address] Performed By: #### 3 3762-6, 20898-2, 92069-8, 3040-3, HSTNT #### [facility] CLIA [id number] [address] [place] [address] [place] ED NOTEon 06-22-2023 ED NOTE HNO ID: [id number] Author: CLAU WHITE, KELLI Service: Nursing Author Type: Registered Nurse Type: ED Notes Filed: 06/22/2023 15:45 Note Text: Pt verbalizes understanding of follow up with PCP and prescriptions x1. Pt stable and ambulatory. IV removed. No further questions at this time. [facility] ED PROV NOTEon 06-22-2023 ED PROV NOTE HNO ID: [id number] Author: MALIA GUTIERREZ DO Service: Emergency Medicine Author Type: Physician Type: ED Provider Notes Filed: 06/22/2023 19:06 Note Text: ED Provider Note Patient Name: Keagan Alicia : 2000 SERVICE DATE: 06/22/23 History Patient presents with: Multiple Concerns: Gallbladder removed 06/17/23 at [place]. Having issues with infection/pain since. A small [...] Procedure Laterality Date - CHOLECYSTECTOMY HX [facility] HX FAMILY HISTORY Problem Relation [...] similar comp (more content not included)... Normal [facility] FLUABV+SARS-CoV-2+RSV Pnl Re sp SHYAM+probeon 06-22-2023 FLUABV+SARS-CoV-2+RSV Pnl Resp SHYAM+probe COVID 19 RESULT: Not detected The method used is RT-PCR or an equivalent NAAT method. Reference Range(the expected result in uninfected individuals): Not detected INFLUENZA A PCR: Not detected INFLUENZA B PCR: Not detected RSV PCR: Not detected Normal [facility] Comment on above: Performed By: #### 9 5941-1 #### [facility] CLIA [id number] [address] [place] [address] [place] Gas and Carbon monoxide pane l (BldV)on 06-22-2023 BASE DEFICIT, VENOUS -2 mmol/L Normal -2-0 [facility] Comment on above: Order Comment: Kayli moon Type: VENOUS BLOOD SPECIMEN Ordering Facility: [facility] Address: [address] [place] [address] Performed By: #### 2 4344-4 #### [facility] CLIA [id number] [facility] [address] [address] Carboxyhemoglobin (BldV) [Mass fraction] <1.0 Normal 0.0-2.0 [facility] Comment on above: Order Comment: Speci men Type: VENOUS BLOOD SPECIMEN Ordering [facility]: [facility] Address: [address] [place] [address] Result Comment: Carb oxyhemoglobin Reference Range for Smokers: 2.0-8.0% Performed By: #### 2 4344-4 #### [facility] CLIA [id number] [facility] [address] [address] CO2 (BldV) [Partial pressure] 43 mm[Hg] Normal 42-55 [facility] Comment on above: Order Comment: Speci men Type: VENOUS BLOOD SPECIMEN Ordering Facility: [facility] Address: [address] [place], [place] [address] Performed By: #### 2 4344-4 #### [facility] CLIA [id number] [facility] [address] [address] CO2 adjusted to patient's actual temperature (BldV) [Partial pressure] Normal [facility] Comment on above: Order Comment: Speci men Type: VENOUS BLOOD SPECIMEN Ordering Facility: [facility] Address: [address] [place] [address] Performed By: #### 2 4344-4 #### [facility] CLIA [id number] [facility] [address] [address] HCO3 (Bld) [Moles/Vol] 23 mmol/L Low 24-28 [facility] Comment on above: Order Comment: Speci men Type: VENOUS BLOOD SPECIMEN Ordering Facility: [facility] Address: [address] [place] [address] Performed By: #### 2 4344-4 #### [facility] CLIA [id number] [facility] [address] [address] Hemoglobin (Bld) [Mass/Vol] 14.7 g/dL Normal 11.5-15.5 [facility] Comment on above: Order Comment: Speci men Type: VENOUS BLOOD SPECIMEN Ordering Facility: [facility] Address: [address] [place] [address] Performed By: #### 2 4344-4 #### [facility] CLIA [id number] [facility] [address] [address] Lactate [Moles/Vol] 1.0 mmol/L Normal 0.5-2.2 [facility] Comment on above: Order Comment: Speci men Type: VENOUS BLOOD SPECIMEN Ordering [facility]: [facility] Address: [address] [place] [address] Performed By: #### 2 4344-4 #### [facility] CLIA [id number] [facility] [address] [address] Methemoglobin (Bld) [Mass fraction] % Normal 0.0-1.5 [facility] Comment on above: Order Comment: Speci men Type: VENOUS BLOOD SPECIMEN Ordering Facility: [facility] Address: [address] [place] [address] Performed By: #### 2 4344-4 #### [facility] CLIA [id number] [facility] [address] [address] O2 THERAPY RA=Room Air [facility] Comment on above: Order Comment: Speci men Type: VENOUS BLOOD SPECIMEN Ordering [facility]: [facility] Address: [address] [place] [address] Performed By: #### 2 4344-4 #### [facility] CLIA [id number] [facility] [address] [address] Oxygen (BldV) [Partial pressure] mm[Hg] Low 35-45 [facility] Comment on above: Order Comment: Speci men Type: VENOUS BLOOD SPECIMEN Ordering [facility] Address: [address] [place] [address] Performed By: #### 2 4344-4 #### [facility] CLIA [id number] [facility] [address] [address] Oxygen adjusted to patient's actual temperature (BldV) [Partial pressure] [facility] Comment on above: Order Comment: Speci men Type: VENOUS BLOOD SPECIMEN Ordering [facility]: [facility] Address: [address] [place] [address] Performed By: #### 2 4344-4 #### [facility] CLIA [id number] [facility] [address] [address] Oxyhemoglobin (BldV) [Mass fraction] 43 % Low 60-85 [facility] Comment on above: Order Comment: Speci men Type: VENOUS BLOOD SPECIMEN Ordering [facility] Address: [address] [place] [address] Performed By: #### 2 4344-4 #### [facility] CLIA [id number] [facility] [address] [address] pH (BldV) 7.35 [pH] Normal 7.32-7.42 [facility] Comment on above: Order Comment: Speci men Type: VENOUS BLOOD SPECIMEN Ordering [facility] Address: [address] [place] [address] Performed By: #### 2 4344-4 #### [facility] CLIA [id number] [facility] [address] [address] pH adjusted to patient's actual temperature (BldV) Normal [facility] Comment on above: Order Comment: Speci men Type: VENOUS BLOOD SPECIMEN Ordering [facility] Address: [address] [place] [address] Performed By: #### 2 4344-4 #### [facility] CLIA [id number] [facility] [address] [address] Potassium [Moles/Vol] 3.4 mmol/L Low 3.5-5.0 [facility] Comment on above: Order Comment: Speci men Type: VENOUS BLOOD SPECIMEN Ordering [facility] Address: [address] [place] [address] Performed By: #### 2 4344-4 #### [facility] CLIA [id number] [facility] [address] [address] HIGH SENSITIVITY TROPONIN To n 06-22-2023 Troponin T.cardiac High sensitivity method [Mass/Vol] <6 Normal <12 [facility] Comment on above: Order Comment: Kayli moon Type: BLOOD SPECIMEN Ordering Facility: [facility] Address: [address] [place] [address] Result Comment: When assessing risk for acute [...] day MACE. Performed By: #### 3 3762-6, 90388-8, 77978-6, 3040-3, HSTNT #### [facility] CLIA [id number] [address] [place] [address] [place] Lipase SerPl-cCncon 06-22-19 24 Lipase [Catalytic activity/Vol] 32 U/L Normal 16-61 [facility] Comment on above: Order Comment: Kayli moon Type: BLOOD SPECIMEN Order[facility]: [facility] Address: [address] [place] [address] Performed By: #### 3 3762-6, 13414-1, 66875-7, 3040-3, HSTNT #### [facility] CLIA [id number] [address] [place] [address] [place] Magnesium SerPl-mCncon 06-21 Magnesium [Mass/Vol] 1.7 mg/dL Normal 1.7-2.3 [facility] Comment on above: Order Comment: Kayli red Type: BLOOD SPECIMEN Ordering [facility]: [facility] Address: [address] [place] [address] Performed By: #### 3 3762-6, 39313-6, 03027-4, 3040-3, HSTNT #### [facility] CLIA [id number] [address] [place] [address] [place] NT-proBNP SerPl-mCncon 06-21 Natriuretic peptide.B prohormone N-Terminal [Mass/Vol] 75 pg/mL Normal <125 [facility] Comment on above: Order Comment: Speci men Type: BLOOD SPECIMEN Order[facility]: [facility] Address: [address] [place] [address] Performed By: #### 3 3762-6, 86277-1, 84516-8, 3040-3, HSTNT #### [facility] CLIA [id number] [address] Urinalysis complete panel (U )on 06-22-2023 Bacteria LM.HPF (Urine sed) [#/Area] Few Abnormal None Seen [facility] Comment on above: Order Comment: Speci men Type: URINE SPECIMEN Order[facility] Address: [address] [place] [address] Performed By: #### 2 4356-8 #### [facility] CLIA [id number] [address] Bilirubin Ql (U) 1+ Abnormal Negative [facility] Comment on above: Order Comment: Speci men Type: URINE SPECIMEN Order[facility] Address: [address] [place] [address] Result Comment: Sugg est correlation with clinical findings and serum bilirubin if clinically indicated. Performed By: #### 2 4356-8 #### [facility] CLIA [id number] [address] Clarity (Unsp spec) Clear Normal Clear [facility] Comment on above: Order Comment: Speci men Type: URINE SPECIMEN Order[facility] Address: [address] [place] [address] Performed By: #### 2 4356-8 #### [facility] CLIA [id number] [address] OF [facility] Color (U) Yellow Normal Yellow [facility] Comment on above: Order Comment: Speci men Type: URINE SPECIMEN Order[facility] Address: [address] [place] [address] Performed By: #### 2 4356-8 #### [facility] CLIA [id number] [address] [place] Epithelial cells LM.HPF (Urine sed) [#/Area] Moderate Normal [facility] Comment on above: Order Comment: Speci men Type: URINE SPECIMEN Order[facility] Address: [address] [place] [address] Performed By: #### 2 4356-8 #### [facility] CLIA [id number] [address] Glucose Test strip (U) [Mass/Vol] Negative Normal Negative [facility] Comment on above: Order Comment: Speci men Type: URINE SPECIMEN Order[facility] Address: [address] [place] [address] Performed By: #### 2 4356-8 #### [facility] CLIA [id number] [address] Hemoglobin Ql (U) Trace Abnormal Negative [facility] Comment on above: Order Comment: Speci men Type: URINE SPECIMEN Order[facility] Address: [address] [place] [address] Performed By: #### 2 4356-8 #### [facility] CLIA [id number] [address] [place] [address] [place] Ketones Ql (U) 3+ Abnormal Negative [facility] Comment on above: Order Comment: Speci men Type: URINE SPECIMEN Order[facility] Address: [address] [place] [address] Performed By: #### 2 4356-8 #### [facility] CLIA [id number] [address] Leukocyte esterase Test strip Ql (U) Negative Normal Negative [facility] Comment on above: Order Comment: Speci men Type: URINE SPECIMEN Order[facility] Address: [address] [place] [address] Performed By: #### 2 4356-8 #### [facility] CLIA [id number] [address] [place] [address] [place] Nitrite Ql (U) Negative Normal Negative [facility] Comment on above: Order Comment: Speci men Type: URINE SPECIMEN Order[facility] Address: [address] [place] [address] Performed By: #### 2 4356-8 #### [facility] CLIA [id number] [address] [place] pH (U) 6.0 [pH] Normal 5.0-8.0 [facility] Comment on above: Order Comment: Speci men Type: URINE SPECIMEN Order[facility] Address: [address] [place] [address] Performed By: #### 2 4356-8 #### [facility] CLIA [id number] [address] [place] Protein (U) [Mass/Vol] Negative Normal Negative [facility] Comment on above: Order Comment: Speci men Type: URINE SPECIMEN Order[facility] Address: [address] [place] [address] Performed By: #### 2 4356-8 #### [facility] CLIA [id number] [address] [place] RBC LM.HPF (Urine sed) [#/Area] 0-3 /HPF Normal 0-3 /HPF [facility] Comment on above: Order Comment: Speci men Type: URINE SPECIMEN Order[facility] Address: [address] [place] [address] Performed By: #### 2 4356-8 #### [facility] CLIA [id number] [address] Specific gravity (U) [Rel density] 1.025 Normal 1.005-1.030 [facility] Comment on above: Order Comment: Speci men Type: URINE SPECIMEN Order[facility] Address: [address] [place] [address] Performed By: #### 2 4356-8 #### [facility] CLIA [id number] [address] Urobilinogen Ql (U) 0.2 EU/dL Normal 0.2-1.0 EU/dL [facility] Comment on above: Order Comment: Speci men Type: URINE SPECIMEN Order[facility] Address: [address] [place] [address] Performed By: #### 2 4356-8 #### [facility] CLIA [id number] [address] [place] [address] [place] WBC LM.HPF (Urine sed) [#/Area] 0-5 /HPF Normal 0-5 /HPF [facility] Comment on above: Order Comment: Speci men Type: URINE SPECIMEN Order[facility] Address: [address] [place] [address] Performed By: #### 2 4356-8 #### [facility] CLIA [id number] [address] [place] CBC W Auto Differential pane l (Bld)on 06-21-2023 Basophils (Bld) [#/Vol] 0.03 10*3/uL [facility] Basophils/100 WBC (Bld) 0.6 % 0.0 - 2.0 % [facility] Eosinophils (Bld) [#/Vol] 0.08 10*3/uL [facility] Eosinophils/100 WBC (Bld) 1.6 % 0.0 - 6.0 % [facility] Erythrocyte distribution width (RBC) [Ratio] 14.7 % High 11.5 - 14.5 % [facility] Hematocrit (Bld) [Volume fraction] 44.4 % 36.0 - 46.0 % [facility] Hemoglobin (Bld) [Mass/Vol] 14.5 g/dL 12.0 - 16.0 g/dL [facility] Immature granulocytes (Bld) [#/Vol] 0.01 10*3/uL [facility] Immature granulocytes/100 WBC (Bld) 0.2 % 0.0 - 0.9 % [facility] Comment on above: Immature Granulocyte Count (IG) includes promyelocytes, myelocytes and metamyelocytes but does not include bands. Percent differential counts (%) should be interpreted in the context of the absolute cell counts (cells/UL). Interpretation and review of laboratory results Abnormal [facility] Lymphocytes (Bld) [#/Vol] 1.85 10*3/uL [facility] Lymphocytes/100 WBC (Bld) 36.6 % 13.0 - 44.0 % [facility] MCH (RBC) [Entitic mass] 28.1 pg 26.0 - 34.0 pg [facility] MCHC (RBC) [Mass/Vol] 32.7 g/dL 32.0 - 36.0 g/dL [facility] MCV (RBC) [Entitic vol] 86 fL 80 - 100 fL [facility] Monocytes (Bld) [#/Vol] 0.32 10*3/uL [facility] Monocytes/100 WBC (Bld) 6.3 % 2.0 - 10.0 % [facility] Neutrophils (Bld) [#/Vol] 2.77 10*3/uL [facility] Comment on above: Percent differential counts (%) should be interpreted in the context of the absolute cell counts (cells/uL). Neutrophils/100 WBC (Bld) 54.7 % 40.0 - 80.0 % [facility] Nucleated RBC/100 WBC (Bld) [Ratio] 0.0 % [facility] Platelets (Bld) [#/Vol] 199 10*3/uL [facility] RBC (Bld) [#/Vol] 5.16 10*6/uL [facility] WBC (Bld) [#/Vol] 5.1 10*3/uL [facility] Basophils (Bld) [#/Vol] 0.03 x10*3/uL Normal 0.00-0.10 [facility] Comment on above: Performed By: #### 5 8077-9 #### MELISSA WHITEHEAD ([id number]) [facility] ([facility]) [address] [place] [address] Basophils/100 WBC (Bld) 0.6 % Normal 0.0-2.0 [facility] Comment on above: Performed By: #### 5 8077-9 #### MELISSA WHITEHEAD ([id number]) [facility] ([facility]) [address] [place] [address] Eosinophils (Bld) [#/Vol] 0.08 x10*3/uL Normal 0.00-0.70 [facility] Comment on above: Performed By: #### 5 8077-9 #### MELISSA WHITEHEAD ([id number]) [facility] ([facility]) [address] [place] [address] Eosinophils/100 WBC (Bld) 1.6 % Normal 0.0-6.0 [facility] Comment on above: Performed By: #### 5 8077-9 #### MELISSA WHITEHEAD ([id number]) [facility] ([facility]) [address] [place] [address] Erythrocyte distribution width (RBC) [Ratio] 14.7 % High 11.5-14.5 [facility] Comment on above: Performed By: #### 5 8077-9 #### MELISSA WHITEHEAD ([id number]) [facility] ([facility]) [address] [place] [address] Hematocrit (Bld) [Volume fraction] 44.4 % Normal 36.0-46.0 [facility] Comment on above: Performed By: #### 5 8077-9 #### MELISSA WHITEHEAD ([id number]) [facility] ([facility]) [address] [place] [address] Hemoglobin (Bld) [Mass/Vol] 14.5 g/dL Normal 12.0-16.0 [facility] Comment on above: Performed By: #### 5 8077-9 #### MELISSA WHITEHEAD ([id number]) [facility] ([facility]) [address] [place] [address] Immature granulocytes (Bld) [#/Vol] 0.01 x10*3/uL Normal 0.00-0.70 [facility] Comment on above: Performed By: #### 5 8077-9 #### MELISSA WHITEHEAD ([id number]) [facility] ([facility]) [address] [place] [address] 01526 Immature granulocytes/100 WBC (Bld) 0.2 % Normal 0.0-0.9 [facility] Comment on above: Result Comment: Betty ture Granulocyte Count (IG) includes promyelocytes, myelocytes and metamyelocytes but does not include bands. Percent differential counts (%) should be interpreted in the context of the absolute cell counts (cells/UL). Performed By: #### 5 8077-9 #### MELISSA WHITEHEAD ([id number]) [facility] ([facility]) [address] [place] [address] 35131 Lymphocytes (Bld) [#/Vol] 1.85 x10*3/uL Normal 1.20-4.80 [facility] Comment on above: Performed By: #### 5 8077-9 #### MELISSA WHITEHEAD ([id number]) [facility] ([facility]) [address] [place], [place] [id number] Lymphocytes/100 WBC (Bld) 36.6 % Normal 13.0-44.0 [facility] Comment on above: Performed By: #### 5 8077-9 #### MELISSA WHITEHEAD ([id number]) [facility] ([facility]) [address] [place] [address] 25436 MCH (RBC) [Entitic mass] 28.1 pg Normal 26.0-34.0 [facility] Comment on above: Performed By: #### 5 8077-9 #### MELISSA WHITEHEAD ([id number]) [facility] ([facility]) [address] [place] [address] 71198 MCHC (RBC) [Mass/Vol] 32.7 g/dL Normal 32.0-36.0 [facility] Comment on above: Performed By: #### 5 8077-9 #### MELISSA WHITEHEAD ([id number]) [facility] ([facility]) [address] [place] [address] 49095 MCV (RBC) [Entitic vol] 86 fL Normal 80-100 [facility] Comment on above: Performed By: #### 5 8077-9 #### MELISSA WHITEHEAD ([id number]) [facility] ([facility]) [address] [place] [address] 25564 Monocytes (Bld) [#/Vol] 0.32 x10*3/uL Normal 0.10-1.00 [facility] Comment on above: Performed By: #### 5 8077-9 #### MELISSA WHITEHEAD ([id number]) [facility] ([facility]) [facility] [place] [address] Monocytes/100 WBC (Bld) 6.3 % Normal 2.0-10.0 [facility] Comment on above: Performed By: #### 5 8077-9 #### MELISSA WHITEHEAD ([id number]) [facility] ([facility]) [address] [place] [address] 42786 Neutrophils (Bld) [#/Vol] 2.77 x10*3/uL Normal 1.20-7.70 [facility] Comment on above: Result Comment: Perc ent differential counts (%) should be interpreted in the context of the absolute cell counts (cells/uL). Performed By: #### 5 8077-9 #### MELISSA WHITEHEAD ([id number]) [facility] ([facility]) [address] [place] [address] 01927 Neutrophils/100 WBC (Bld) 54.7 % Normal 40.0-80.0 [facility] Comment on above: Performed By: #### 5 8077-9 #### MELISSA WHITEHEAD ([id number]) [facility] ([facility]) [address] [place] [address] 97153 Nucleated RBC/100 WBC (Bld) [Ratio] 0.0 /100 WBCs Normal 0.0-0.0 [facility] Comment on above: Performed By: #### 5 8077-9 #### MELISSA WHITEHEAD ([id number]) [facility] ([facility]) [address] [place] [address] 30595 Platelets (Bld) [#/Vol] 199 x10*3/uL Normal 150-450 [facility] Comment on above: Performed By: #### 5 8077-9 #### MELISSA WHITEHEAD ([id number]) [facility] ([facility]) [address] [place] [address] 47569 RBC (Bld) [#/Vol] 5.16 x10*6/uL Normal 4.00-5.20 [facility] Comment on above: Performed By: #### 5 8077-9 #### MELISSA WHITEHEAD ([id number]) [facility] ([facility]) [address] [place] [address] WBC (Bld) [#/Vol] 5.1 x10*3/uL Normal 4.4-11.3 [facility] Comment on above: Performed By: #### 5 8077-9 #### TORRES VENTURA ([id number]) [facility] ([facility]) [address] [id number] ANGIO CHEST FOR PULMONARY EMBOLISMon 06-21-2023 CT ANGIO CHEST FOR PULMONARY EMBOLISM Interpreted By: Rosa Chavarria, STUDY: CT ANGIO CHEST FOR PULMONARY EMBOLISM; 06/21/2023 9:16 am INDICATION: Signs/Symptoms:dyspn ea. History of laparoscopic cholecystectomy on 06/17/2023 with subsegmental pulmonary embolus demonstrated in right lower lobe on CT examination of abdomen and pelvis from 06/19/2023 COMPARISON: None.. ACCESSION NUMBER(S): [id number] ORDERING CLINICIAN: SATURNINO VELÁZQUEZ TECHNIQUE: CT angiography [...] Rosa Chavarria 06/21/2023 9:34 AM Dictation workstation: [id number] [facility] CT Chest W contrast IV and [...] Rosa Chavarria 06/21/2023 9:34 AM Dictation workstation: [id number] [facility] Interpreted By: Rosa Chavarria, STUDY: CT ANGIO CHEST FOR PULMONARY EMBOLISM; 06/21/2023 9:16 am INDICATION: Signs/Symptoms:dyspn ea. History of laparoscopic cholecystectomy on 06/17/2023 with subsegmental pulmonary embolus demonstrated in right lower lobe on CT examination of abdomen and pelvis from 06/19/2023 COMPARISON: None.. ACCESSION NUMBER(S): [id number] ORDERING CLINICIAN: SATURNINO VELÁZQUEZ TECHNIQUE: CT angiography [...] pelvis from 06/19/2023 COMPARISON: None.. ACCESSION NUMBER(S): [id number] ORDERING CLINICIAN: SATURNINO VELÁZQUEZ TECHNIQUE: CT angiography [...] Rosa Chavarria 06/21/2023 9:34 AM Dictation workstation: [id number] [facility] Work Phone: Radiology Study observation (narrative) [facility] Work Phone: CT Chest W contrast IV and C T angiogram Pulmonary arteries for pulmonary embolus W contrast IVOrdered By: Rosa Chavarria on 06-21-2023 [facility] Work Phone: Comprehensive metabolic 2000 panelon 06-21-2023 Albumin BCP dye [Mass/Vol] 4.6 g/dL 3.4 - 5.0 g/dL [facility] ALP [Catalytic activity/Vol] 57 U/L 33 - 110 U/L [facility] ALT With P-5'-P [Catalytic activity/Vol] 36 U/L 7 - 45 U/L [facility] Comment on above: Patients treated wit h Sulfasalazine may generate falsely decreased results for ALT. Anion gap [Moles/Vol] 17 mmol/L 10 - 20 mmol/L [facility] AST With P-5'-P [Catalytic activity/Vol] 16 U/L 9 - 39 U/L [facility] Bilirubin [Mass/Vol] 0.8 mg/dL 0.0 - 1.2 mg/dL [facility] Calcium [Mass/Vol] 9.1 mg/dL 8.6 - 10. 3 mg/dL [facility] Chloride [Moles/Vol] 100 mmol/L 98 - 107 mmol/L [facility] CO2 [Moles/Vol] 20 mmol/L Low 21 - 32 mmol/L [facility] Creatinine [Mass/Vol] 0.81 mg/dL 0.50 - 1.05 mg/dL [facility] eGFR - PINF [facility] Comment on above: Calculations of nick mated GFR are performed using the 2020 CKD-EPI Study Refit equation without the race variable for the IDMS-Traceable creatinine methods. https://jasn.asnjournals.org/content//22/ASN.2020 667529 Glucose [Mass/Vol] 68 mg/dL Low 74 - 99 mg/dL [facility] Interpretation and review of laboratory results Abnormal [facility] Potassium [Moles/Vol] 3.6 mmol/L 3.5 - 5.3 mmol/L [facility] Protein [Mass/Vol] 6.6 g/dL 6.4 - 8.2 g/dL [facility] Sodium [Moles/Vol] 133 mmol/L Low 136 - 145 mmol/L [facility] Urea nitrogen [Mass/Vol] 10 mg/dL 6 - 23 mg/dL [facility] Albumin BCP dye [Mass/Vol] 4.6 g/dL Normal 3.4-5.0 [facility] Comment on above: Performed By: #### 5 8077-9 #### MELISSA WHITEHEAD ([id number]) [facility] ([facility]) [address] [place] [address] ALP [Catalytic activity/Vol] 57 U/L Normal 33-110 [facility] Comment on above: Performed By: #### 5 8077-9 #### MELISSA WHITEHEAD ([id number]) [facility] ([facility]) [address] [place] [address] ALT With P-5'-P [Catalytic activity/Vol] 36 U/L Normal 7-45 [facility] Comment on above: Result Comment: Gema ents treated with Sulfasalazine may generate falsely decreased results for ALT. Performed By: #### 5 8077-9 #### MELISSA WHITEHEAD ([id number]) [facility] ([facility]) [facility] [place] [address] Anion gap [Moles/Vol] 17 mmol/L Normal 10-20 [facility] Comment on above: Performed By: #### 5 8077-9 #### MELISSA WHITEHEAD ([id number]) [facility] ([facility]) [address] [place] [address] 95673 AST With P-5'-P [Catalytic activity/Vol] 16 U/L Normal 9-39 [facility] Comment on above: Performed By: #### 5 8077-9 #### MELSISA WHITEHEAD ([id number]) [facility] ([facility]) [facility] [place] [address] Bilirubin [Mass/Vol] 0.8 mg/dL Normal 0.0-1.2 [facility] Comment on above: Performed By: #### 5 8077-9 #### MELISSA WHITEHEAD ([id number]) [facility] ([facility]) [address] [place] [address] 44473 Calcium [Mass/Vol] 9.1 mg/dL Normal 8.6-10.3 [facility] Comment on above: Performed By: #### 5 8077-9 #### MELISSA WHITEHEAD ([id number]) [facility] ([facility]) [address] [place] [address] 88019 Chloride [Moles/Vol] 100 mmol/L Normal 98-107 [facility] Comment on above: Performed By: #### 5 8077-9 #### MELISSA WHITEHEAD ([id number]) [facility] ([facility]) [facility] [place] [address] CO2 [Moles/Vol] 20 mmol/L Low 21-32 [facility] Comment on above: Performed By: #### 5 8077-9 #### MELISSA WHITEHEAD ([id number]) [facility] ([facility]) [address] [place] [address] 79666 Creatinine [Mass/Vol] 0.81 mg/dL Normal 0.50-1.05 [facility] Comment on above: Performed By: #### 5 8077-9 #### MELISSA WHITEHEAD ([id number]) [facility] ([facility]) [address] [place] [address] 68736 GFR/1.73 sq M.predicted MDRD (S/P/Bld) [Vol rate/Area] mL/min/{1.73_m2} Normal >60 [facility] Comment on above: Result Comment: Calc ulations of estimated GFR are performed using the 2020 CKD-EPI Study Refit equation without the race variable for the IDMS-Traceable creatinine methods. https://jasn.asnjournals.org/content/ 656839 Performed By: #### 5 8077-9 #### MELISSA WHITEHEAD ([id number]) [facility] ([facility]) [address] [place] [address] 28639 Glucose [Mass/Vol] 68 mg/dL Low 74-99 [facility] Comment on above: Performed By: #### 5 8077-9 #### MELISSA WHITEHEAD ([id number]) [facility] ([facility]) [address] [place] [address] 87299 Potassium [Moles/Vol] 3.6 mmol/L Normal 3.5-5.3 [facility] Comment on above: Performed By: #### 5 8077-9 #### MELISSA WHITEHEAD ([id number]) [facility] ([facility]) [address] [place] [address] 77702 Protein [Mass/Vol] 6.6 g/dL Normal 6.4-8.2 [facility] Comment on above: Performed By: #### 5 8077-9 #### MELISSA WHITEHEAD ([id number]) [facility] ([facility]) [address] [place] [address] 48430 Sodium [Moles/Vol] 133 mmol/L Low 136-145 [facility] Comment on above: Performed By: #### 5 8077-9 #### MELISSA WHITEHEAD ([id number]) [facility] ([facility]) [address] [place] [address] 81100 Urea nitrogen [Mass/Vol] 10 mg/dL Normal 6-23 [facility] Comment on above: Performed By: #### 5 8077-9 #### MELISSA WHITEHEAD ([id number]) [facility] ([facility]) [address] [place] [address] 70878 ECG 12-LEADon 06-21-2023 ECG 12-LEAD Ventricular Rate 77 Atrial Rate 77 P-R Interval 120 QRS Duration 84 Q-T Interval 394 QTC Calculation(Bazett) 445 P Butte 76 R Butte 91 T Butte 32 QRS Count 13 Q Onset 223 [...] and clinical correlation Confirmed by Eugene Mccormick ([id number]) on 07/02/2023 1:17:49 PM Normal [facility] Tropinin I.cardiac panel Hig h sensitivity methodon 06-21-2023 Interpretation and review of laboratory results Normal [facility] Less than 99th percentile of normal range [...] performed using a different testing methodology at [facility] than at other [facility]. Direct result comparisons should only be made within the same method. [facility] Troponin I, High Sensitivity on 06-21-2023 Tropinin I.cardiac panel High sensitivity method ng/L 0 - 13 ng/L [facility] Troponin I.cardiac panelon 0 06-21-2023 Tropinin I.cardiac panel High sensitivity method <3 Normal 0-13 [facility] Comment on above: Order Comment: Less [...] is performed using a differenttesting methodology at [facility] than at [facility]. Direct result comparisons should onlybe made within the same method. Performed By: #### 5 8077-9 #### TORRES VENTURA ([id number]) [facility] ([facility]) [address] [place] [address] Basic metabolic 2000 panelon 06-20-2023 Anion gap [Moles/Vol] 14 mmol/L 10 - 20 mmol/L [facility] Calcium [Mass/Vol] 8.6 mg/dL 8.6 - 10. 3 mg/dL [facility] Chloride [Moles/Vol] 101 mmol/L 98 - 107 mmol/L [facility] CO2 [Moles/Vol] 20 mmol/L Low 21 - 32 mmol/L [facility] Creatinine [Mass/Vol] 0.80 mg/dL 0.50 - 1.05 mg/dL [facility] eGFR - PINF [facility] Comment on above: Calculations of nick mated GFR are performed using the 2020 CKD-EPI Study Refit equation without the race variable for the IDMS-Traceable creatinine methods. https://jasn.asnjournals.org/content//ASN.2020 393152 Glucose [Mass/Vol] 98 mg/dL 74 - 99 mg/dL [facility] Interpretation and review of laboratory results Abnormal [facility] Potassium [Moles/Vol] 3.7 mmol/L 3.5 - 5.3 mmol/L [facility] Sodium [Moles/Vol] 131 mmol/L Low 136 - 145 mmol/L [facility] Urea nitrogen [Mass/Vol] 7 mg/dL 6 - 23 mg/dL [facility] Anion gap [Moles/Vol] 14 mmol/L Normal 10-20 [facility] Comment on above: Performed By: #### 5 8077-9 #### MELISSA WHITEHEAD ([id number]) [facility] ([facility]) [facility] [place] [address] Calcium [Mass/Vol] 8.6 mg/dL Normal 8.6-10.3 [facility] Comment on above: Performed By: #### 5 8077-9 #### MELISSA WHITEHEAD ([id number]) [facility] ([facility]) [address] [place] [address] 79931 Chloride [Moles/Vol] 101 mmol/L Normal 98-107 [facility] Comment on above: Performed By: #### 5 8077-9 #### MELISSA WHITEHEAD ([id number]) [facility] ([facility]) [address] [place] [address] 46001 CO2 [Moles/Vol] 20 mmol/L Low 21-32 [facility] Comment on above: Performed By: #### 5 8077-9 #### MELISSA WHITEHEAD ([id number]) [facility] ([facility]) [address] [place] [address] 64095 Creatinine [Mass/Vol] 0.80 mg/dL Normal 0.50-1.05 [facility] Comment on above: Performed By: #### 5 8077-9 #### MELISSA WHITEHEAD ([id number]) [facility] ([facility]) [address] [place] [address] 00701 GFR/1.73 sq M.predicted MDRD (S/P/Bld) [Vol rate/Area] mL/min/{1.73_m2} Normal >60 [facility] Comment on above: Result Comment: Calc ulations of estimated GFR are performed using the 2020 CKD-EPI Study Refit equation without the race variable for the IDMS-Traceable creatinine methods. https://jasn.asnjournals.org/content/early//ASN.2020 843922 Performed By: #### 5 8077-9 #### MELISSA WHITEHEAD ([id number]) [facility] ([facility]) [address] [place] [address] 75024 Glucose [Mass/Vol] 98 mg/dL Normal 74-99 [facility] Comment on above: Performed By: #### 5 8077-9 #### MELISSA WHITEHEAD ([id number]) [facility] ([facility]) [address] [place] [address] 04335 Potassium [Moles/Vol] 3.7 mmol/L Normal 3.5-5.3 [facility] Comment on above: Performed By: #### 5 8077-9 #### MELISSA WHITEHEAD ([id number]) [facility] ([facility]) [address] [place] [address] 06479 Sodium [Moles/Vol] 131 mmol/L Low 136-145 [facility] Comment on above: Performed By: #### 5 8077-9 #### MELISSA WHITEHEAD ([id number]) [facility] ([facility]) [address] [place] [address] 67505 Urea nitrogen [Mass/Vol] 7 mg/dL Normal 6-23 [facility] Comment on above: Performed By: #### 5 8077-9 #### MELISSA WHITEHEAD ([id number]) [facility] ([facility]) [address] [place] [address] 52991 CBC panel Auto (Bld)on 06-19 Erythrocyte distribution width (RBC) [Ratio] 14.4 % 11.5 - 14.5 % [facility] Hematocrit (Bld) [Volume fraction] 41.9 % 36.0 - 46.0 % [facility] Hemoglobin (Bld) [Mass/Vol] 13.9 g/dL 12.0 - 16.0 g/dL [facility] Interpretation and review of laboratory results Normal [facility] MCH (RBC) [Entitic mass] 28.6 pg 26.0 - 34.0 pg [facility] MCHC (RBC) [Mass/Vol] 33.2 g/dL 32.0 - 36.0 g/dL [facility] MCV (RBC) [Entitic vol] 86 fL 80 - 100 fL [facility] Nucleated RBC/100 WBC (Bld) [Ratio] 0.0 % [facility] Platelets (Bld) [#/Vol] 235 10*3/uL [facility] RBC (Bld) [#/Vol] 4.86 10*6/uL [facility] WBC (Bld) [#/Vol] 6.5 10*3/uL [facility] Erythrocyte distribution width (RBC) [Ratio] 14.4 % Normal 11.5-14.5 [facility] Comment on above: Performed By: #### 5 8077-9 #### MELISSA WHITEHEAD ([id number]) [facility] ([facility]) [address] [place] [address] 05482 Hematocrit (Bld) [Volume fraction] 41.9 % Normal 36.0-46.0 [facility] Comment on above: Performed By: #### 5 8077-9 #### MELISSA WHITEHEAD ([id number]) [facility] ([facility]) [address] [place] [address] 47775 Hemoglobin (Bld) [Mass/Vol] 13.9 g/dL Normal 12.0-16.0 [facility] Comment on above: Performed By: #### 5 8077-9 #### MELISSA WHITEHEAD ([id number]) [facility] ([facility]) [address] [place] [address] 17867 MCH (RBC) [Entitic mass] 28.6 pg Normal 26.0-34.0 [facility] Comment on above: Performed By: #### 5 8077-9 #### MELISSA WHITEHEAD ([id number]) [facility] ([facility]) [address] [place] [address] 73315 MCHC (RBC) [Mass/Vol] 33.2 g/dL Normal 32.0-36.0 [facility] Comment on above: Performed By: #### 5 8077-9 #### MELISSA WHITEHEAD ([id number]) [facility] ([facility]) [address] [place] [address] 88391 MCV (RBC) [Entitic vol] 86 fL Normal 80-100 [facility] Comment on above: Performed By: #### 5 8077-9 #### MELISSA WHITEHEAD ([id number]) [facility] ([facility]) [address] [place] [address] 60394 Nucleated RBC/100 WBC (Bld) [Ratio] 0.0 /100 WBCs Normal 0.0-0.0 [facility] Comment on above: Performed By: #### 5 8077-9 #### MELISSA WHITEHEAD ([id number]) [facility] ([facility]) [address] [place] [address] 52496 Platelets (Bld) [#/Vol] 235 x10*3/uL Normal 150-450 [facility] Comment on above: Performed By: #### 5 8077-9 #### MELISSA WHITEHEAD ([id number]) [facility] ([facility]) [address] [place] [address] 14324 RBC (Bld) [#/Vol] 4.86 x10*6/uL Normal 4.00-5.20 [facility] Comment on above: Performed By: #### 5 8077-9 #### MELISSA WHITEHEAD ([id number]) [facility] ([facility]) [address] [place] [address] 22554 WBC (Bld) [#/Vol] 6.5 x10*3/uL Normal 4.4-11.3 [facility] Comment on above: Performed By: #### 5 8077-9 #### MELISSA WHITEHEAD ([id number]) [facility] ([facility]) [address] [place] [address] 41431 Extra Urine Emerson Tubeon - Extra Tube Hold for add-ons. [facility] Comment on above: Auto resulted. [facility] NM HEPATOBILIARYon NM HEPATOBILIARY Interpreted By: Jonathan Shannon and Bartolomei Aguilar Christopher STUDY: NM HEPATOBILIARY; 06/20/2023 7:34 am INDICATION: Signs/Symptoms:rule out biliary leak. COMPARISON: None. ACCESSION NUMBER(S): [id number] ORDERING CLINICIAN: ALLA LLANES TECHNIQUE: DIVISION OF [...] as stated. This study was interpreted at [place], [place]. MACRO: None Signed by: Jonathan Shannon 06/20/2023 10:09 AM Dictation workstation: [id number] [facility] NM Liver and Biliary ducts a nd Gallbladder Viewson 06-20-2023 Patient is status post cholecystectomy, without evidence of radiotracer extravasation to suggest bile leak. Enterogastric reflux is noted. I personally reviewed the images/study and I agree with the findings as stated. This study was interpreted at [place], [place]. MACRO: None Signed by: Jonathan Shannon 06/20/2023 10:09 AM Dictation workstation: [id number] Interpreted By: Jonathan Shannon and Bartolomei Aguilar Christopher STUDY: NM HEPATOBILIARY; 06/20/2023 7:34 am INDICATION: Signs/Symptoms:rule out biliary leak. COMPARISON: None. ACCESSION NUMBER(S): [id number] ORDERING CLINICIAN: ALLA LLANES TECHNIQUE: DIVISION OF [...] out biliary leak. COMPARISON: None. ACCESSION NUMBER(S): [id number] ORDERING CLINICIAN: ALLA LLANES TECHNIQUE: DIVISION OF [...] as stated. This study was interpreted at [place], [place]. MACRO: None Signed by: Jonathan Shannon 06/20/2023 10:09 AM Dictation workstation: [id number] [facility] Work Phone: Radiology Study observation (narrative) [facility] Work Phone: NM Liver and Biliary ducts a nd Gallbladder ViewsOrdered By: Jonathan Shannon on 06-20-2023 [facility] Work Phone: Basic metabolic 2000 panelon 06-19-2023 Anion gap [Moles/Vol] 20 mmol/L 10 - 20 mmol/L [facility] Calcium [Mass/Vol] 9.1 mg/dL 8.6 - 10. 3 mg/dL [facility] Chloride [Moles/Vol] 98 mmol/L 98 - 107 mmol/L [facility] CO2 [Moles/Vol] 16 mmol/L Low 21 - 32 mmol/L [facility] Creatinine [Mass/Vol] 0.65 mg/dL 0.50 - 1.05 mg/dL [facility] eGFR - PINF [facility] Comment on above: Calculations of nick mated GFR are performed using the 2020 CKD-EPI Study Refit equation without the race variable for the IDMS-Traceable creatinine methods. https://jasn.asnjournals.org/content//ASN.2020 320884 Glucose [Mass/Vol] 74 mg/dL 74 - 99 mg/dL [facility] Potassium [Moles/Vol] 4.4 mmol/L 3.5 - 5.3 mmol/L [facility] Sodium [Moles/Vol] 130 mmol/L Low 136 - 145 mmol/L [facility] Comment on above: Confirmed by repeat analysis Urea nitrogen [Mass/Vol] 7 mg/dL 6 - 23 mg/dL [facility] Anion gap [Moles/Vol] 20 mmol/L Normal 10-20 [facility] Comment on above: Performed By: #### 2 4321-2 #### MELISSA WHITEHEAD ([id number]) [facility] ([facility]) [address] [place] [address] 69341 Calcium [Mass/Vol] 9.1 mg/dL Normal 8.6-10.3 [facility] Comment on above: Performed By: #### 2 4321-2 #### MELISSA WHITEHEAD ([id number]) [facility] ([facility]) [facility] [place] [address] Chloride [Moles/Vol] 98 mmol/L Normal 98-107 [facility] Comment on above: Performed By: #### 2 4321-2 #### MELISSA WHITEHEAD ([id number]) [facility] ([facility]) [address] [place] [address] 12725 CO2 [Moles/Vol] 16 mmol/L Low 21-32 [facility] Comment on above: Performed By: #### 2 4321-2 #### MELISSA WHITEHEAD ([id number]) [facility] ([facility]) [address] [place] [address] 43557 Creatinine [Mass/Vol] 0.65 mg/dL Normal 0.50-1.05 [facility] Comment on above: Performed By: #### 2 4321-2 #### MELISSA WHITEHEAD ([id number]) [facility] ([facility]) [address] [place] [address] 35927 GFR/1.73 sq M.predicted MDRD (S/P/Bld) [Vol rate/Area] mL/min/{1.73_m2} Normal >60 [facility] Comment on above: Result Comment: Calc ulations of estimated GFR are performed using the 2020 CKD-EPI Study Refit equation without the race variable for the IDMS-Traceable creatinine methods. https://jasn.asnjournals.org/content/early//ASN.2020 270693 Performed By: #### 2 4321-2 #### MELISSA WHITEHEAD ([id number]) [facility] ([facility]) [address] [place] [address] 06946 Glucose [Mass/Vol] 74 mg/dL Normal 74-99 [facility] Comment on above: Performed By: #### 2 4321-2 #### MELISSA WHITEHEAD ([id number]) [facility] ([facility]) [address] [place] [address] 75346 Potassium [Moles/Vol] 4.4 mmol/L Normal 3.5-5.3 [facility] Comment on above: Performed By: #### 2 4321-2 #### MELISSA WHITEHEAD ([id number]) [facility] ([facility]) [address] [place] [address] 36478 Sodium [Moles/Vol] 130 mmol/L Low 136-145 [facility] Comment on above: Result Comment: Conf irmed by repeat analysis Performed By: #### 2 4321-2 #### MELISSA WHITEHEAD ([id number]) [facility] ([facility]) [address] [place] [address] 69580 Urea nitrogen [Mass/Vol] 7 mg/dL Normal 6-23 [facility] Comment on above: Performed By: #### 2 4321-2 #### TORRES VENTURA ([id number]) [facility] ([facility]) [address] [place] [address] CBC W Auto Differential pane l (Bld)on 06-19-2023 Basophils (Bld) [#/Vol] 0.01 10*3/uL [facility] Basophils/100 WBC (Bld) 0.2 % 0.0 - 2.0 % [facility] Eosinophils (Bld) [#/Vol] 0.01 10*3/uL [facility] Eosinophils/100 WBC (Bld) 0.2 % 0.0 - 6.0 % [facility] Erythrocyte distribution width (RBC) [Ratio] 14.1 % 11.5 - 14.5 % [facility] Hematocrit (Bld) [Volume fraction] 43.7 % 36.0 - 46.0 % [facility] Hemoglobin (Bld) [Mass/Vol] 14.2 g/dL 12.0 - 16.0 g/dL [facility] Immature granulocytes (Bld) [#/Vol] 0.01 10*3/uL [facility] Immature granulocytes/100 WBC (Bld) 0.2 % 0.0 - 0.9 % [facility] Comment on above: Immature Granulocyte Count (IG) includes promyelocytes, myelocytes and metamyelocytes but does not include bands. Percent differential counts (%) should be interpreted in the context of the absolute cell counts (cells/UL). Interpretation and review of laboratory results Abnormal [facility] Lymphocytes (Bld) [#/Vol] 0.64 10*3/uL Low [facility] Lymphocytes/100 WBC (Bld) 12.9 % 13.0 - 44.0 % [facility] MCH (RBC) [Entitic mass] 28.2 pg 26.0 - 34.0 pg [facility] MCHC (RBC) [Mass/Vol] 32.5 g/dL 32.0 - 36.0 g/dL [facility] MCV (RBC) [Entitic vol] 87 fL 80 - 100 fL [facility] Monocytes (Bld) [#/Vol] 0.10 10*3/uL [facility] Monocytes/100 WBC (Bld) 2.0 % 2.0 - 10.0 % [facility] Neutrophils (Bld) [#/Vol] 4.20 10*3/uL [facility] Comment on above: Percent differential counts (%) should be interpreted in the context of the absolute cell counts (cells/uL). Neutrophils/100 WBC (Bld) 84.5 % 40.0 - 80.0 % [facility] Nucleated RBC/100 WBC (Bld) [Ratio] 0.0 % [facility] Platelets (Bld) [#/Vol] 225 10*3/uL [facility] RBC (Bld) [#/Vol] 5.03 10*6/uL [facility] WBC (Bld) [#/Vol] 5.0 10*3/uL [facility] Basophils (Bld) [#/Vol] 0.01 x10*3/uL Normal 0.00-0.10 [facility] Comment on above: Performed By: #### 5 7021-8 #### MELISSA WHITEHEAD ([id number]) [facility] ([facility]) [address] [place] [address] 30067 Basophils/100 WBC (Bld) 0.2 % Normal 0.0-2.0 [facility] Comment on above: Performed By: #### 5 7021-8 #### MELISSA WHITEHEAD ([id number]) [facility] ([facility]) [address] [place] [address] 91341 Eosinophils (Bld) [#/Vol] 0.01 x10*3/uL Normal 0.00-0.70 [facility] Comment on above: Performed By: #### 5 7021-8 #### MELISSA WHITEHEAD ([id number]) [facility] ([facility]) [address] [place] [address] 36035 Eosinophils/100 WBC (Bld) 0.2 % Normal 0.0-6.0 [facility] Comment on above: Performed By: #### 5 7021-8 #### MELISSA WHITEHEAD ([id number]) [facility] ([facility]) [address] [place] [address] Erythrocyte distribution width (RBC) [Ratio] 14.1 % Normal 11.5-14.5 [facility] Comment on above: Performed By: #### 5 7021-8 #### MELISSA WHITEHEAD ([id number]) [facility] ([facility]) [address] [place] [address] Hematocrit (Bld) [Volume fraction] 43.7 % Normal 36.0-46.0 [facility] Comment on above: Performed By: #### 5 7021-8 #### MELISSA WHITEHEAD ([id number]) [facility] ([facility]) [address] [place] [address] Hemoglobin (Bld) [Mass/Vol] 14.2 g/dL Normal 12.0-16.0 [facility] Comment on above: Performed By: #### 5 7021-8 #### MELISSA WHITEHEAD ([id number]) [facility] ([facility]) [address] [place] [address] Immature granulocytes (Bld) [#/Vol] 0.01 x10*3/uL Normal 0.00-0.70 [facility] Comment on above: Performed By: #### 5 7021-8 #### MELISSA WHITEHEAD ([id number]) [facility] ([facility]) [address] [place] [address] Immature granulocytes/100 WBC (Bld) 0.2 % Normal 0.0-0.9 [facility] Comment on above: Result Comment: Betty ture Granulocyte Count (IG) includes promyelocytes, myelocytes and metamyelocytes but does not include bands. Percent differential counts (%) should be interpreted in the context of the absolute cell counts (cells/UL). Performed By: #### 5 7021-8 #### MELISSA WHITEHEAD ([id number]) [facility] ([facility]) [address] [place] [address] Lymphocytes (Bld) [#/Vol] 0.64 x10*3/uL Low 1.20-4.80 [facility] Comment on above: Performed By: #### 5 7021-8 #### MELISSA WHITEHEAD ([id number]) [facility] ([facility]) [address] [place] [address] 49985 Lymphocytes/100 WBC (Bld) 12.9 % Normal 13.0-44.0 [facility] Comment on above: Performed By: #### 5 7021-8 #### MELISSA WHITEHEAD ([id number]) [facility] ([facility]) [address] [place] [address] 60317 MCH (RBC) [Entitic mass] 28.2 pg Normal 26.0-34.0 [facility] Comment on above: Performed By: #### 5 7021-8 #### MELISSA WHITEHEAD ([id number]) [facility] ([facility]) [address] [place] [address] MCHC (RBC) [Mass/Vol] 32.5 g/dL Normal 32.0-36.0 [facility] Comment on above: Performed By: #### 5 7021-8 #### MELISSA WHITEHEAD ([id number]) [facility] ([facility]) [address] [place] [address] 43513 MCV (RBC) [Entitic vol] 87 fL Normal 80-100 [facility] Comment on above: Performed By: #### 5 7021-8 #### MELISSA WHITEHEAD ([id number]) [facility] ([facility]) [address] [place] [address] 68029 Monocytes (Bld) [#/Vol] 0.10 x10*3/uL Normal 0.10-1.00 [facility] Comment on above: Performed By: #### 5 7021-8 #### MELISSA WHITEHEAD ([id number]) [facility] ([facility]) [address] [place] [address] 91582 Monocytes/100 WBC (Bld) 2.0 % Normal 2.0-10.0 [facility] Comment on above: Performed By: #### 5 7021-8 #### MELISSA WHITEHEAD ([id number]) [facility] ([facility]) [address] [place] [address] 59772 Neutrophils (Bld) [#/Vol] 4.20 x10*3/uL Normal 1.20-7.70 [facility] Comment on above: Result Comment: Perc ent differential counts (%) should be interpreted in the context of the absolute cell counts (cells/uL). Performed By: #### 5 7021-8 #### MELISSA WHITEHEAD ([id number]) [facility] ([facility]) [address] [place] [address] 72300 Neutrophils/100 WBC (Bld) 84.5 % Normal 40.0-80.0 [facility] Comment on above: Performed By: #### 5 7021-8 #### MELISSA WHITEHEAD ([id number]) [facility] ([facility]) [address] [place] [address] 79693 Nucleated RBC/100 WBC (Bld) [Ratio] 0.0 /100 WBCs Normal 0.0-0.0 [facility] Comment on above: Performed By: #### 5 7021-8 #### MELISSA WHITEHEAD ([id number]) [facility] ([facility]) [address] [place] [address] 01412 Platelets (Bld) [#/Vol] 225 x10*3/uL Normal 150-450 [facility] Comment on above: Performed By: #### 5 7021-8 #### MELISSA WHITEHEAD ([id number]) [facility] ([facility]) [address] [place] [address] 78775 RBC (Bld) [#/Vol] 5.03 x10*6/uL Normal 4.00-5.20 [facility] Comment on above: Performed By: #### 5 7021-8 #### MELISSA WHITEHEAD ([id number]) [facility] ([facility]) [address] [place] [address] 97907 WBC (Bld) [#/Vol] 5.0 x10*3/uL Normal 4.4-11.3 [facility] Comment on above: Performed By: #### 5 7021-8 #### MELISSA WHITEHEAD ([id number]) [facility] ([facility]) [id number] ABDOMEN PELVIS W IV CONTR Cortney [...] AM -------- ORIGINAL REPORT -------- Dictation workstation: [id number] Interpreted By: Young Foss, STUDY: CT ABDOMEN PELVIS W IV CONTRAST; 06/19/2023 7:55 pm INDICATION: Signs/Symptoms:recen t cholecystectomy, nausea, vomiting, increased pain. Postoperative day to COMPARISON: None. ACCESSION NUMBER(S): [id number] ORDERING CLINICIAN: EUGENE CARCAMO TECHNIQUE: Contiguous axial [...] Young Foss 06/19/2023 8:23 PM Dictation workstation: [id number] [facility] CT Abdomen and Pelvis W cont [...] Young Foss 06/19/2023 8:23 PM Dictation workstation: [id number] Interpreted By: Young Foss, STUDY: CT ABDOMEN PELVIS W IV CONTRAST; 06/19/2023 7:55 pm INDICATION: Signs/Symptoms:recen t cholecystectomy, nausea, vomiting, increased pain. Postoperative day to COMPARISON: None. ACCESSION NUMBER(S): [id number] ORDERING CLINICIAN: EUGENE CARCAMO TECHNIQUE: Contiguous axial [...] Postoperative day to COMPARISON: None. ACCESSION NUMBER(S): [id number] ORDERING CLINICIAN: EUGENE CARCAMO TECHNIQUE: Contiguous axial [...] Young Foss 06/19/2023 8:23 PM Dictation workstation: [id number] [facility] Work Phone: Radiology Study observation (narrative) [facility] Work Phone: CT Abdomen and Pelvis W cont rast IVOrdered By: Young Foss on 06-19-2023 [facility] Work Phone: HCG ( test) IA.rapi d Ql (U)Ordered By: Carlos Alberto Oden on 06-19-2023 HCG ( test) Ql (U) Negative NEGATIVE [facility] Interpretation and review of laboratory results Normal [facility] HCG ( test) IA.rapi d Ql (U)on 06-19-2023 HCG ( test) Ql (U) Negative Normal NEGATIVE [facility] Comment on above: Performed By: #### 5 8077-9 #### MELISSA WHITEHEAD ([id number]) [facility] ([facility]) [address] [place] [address] Hepatic function 2000 panelo n 06-19-2023 Albumin BCP dye [Mass/Vol] 4.8 g/dL 3.4 - 5.0 g/dL [facility] ALP [Catalytic activity/Vol] 61 U/L 33 - 110 U/L [facility] ALT With P-5'-P [Catalytic activity/Vol] 56 U/L High 7 - 45 U/L [facility] Comment on above: Patients treated wit h Sulfasalazine may generate falsely decreased results for ALT. AST With P-5'-P [Catalytic activity/Vol] 26 U/L 9 - 39 U/L [facility] Bilirubin [Mass/Vol] 0.7 mg/dL 0.0 - 1.2 mg/dL [facility] Bilirubin.direct [Mass/Vol] 0.1 mg/dL 0.0 - 0.3 mg/dL [facility] Protein [Mass/Vol] 7.3 g/dL 6.4 - 8.2 g/dL [facility] Albumin BCP dye [Mass/Vol] 4.8 g/dL Normal 3.4-5.0 [facility] Comment on above: Performed By: #### 2 4325-3 #### MELISSA WHITEHEAD ([id number]) [facility] ([facility]) [address] [place] [address] ALP [Catalytic activity/Vol] 61 U/L Normal 33-110 [facility] Comment on above: Performed By: #### 2 4325-3 #### MELISSA WHITEHEAD ([id number]) [facility] ([facility]) [address] [place] [address] ALT With P-5'-P [Catalytic activity/Vol] 56 U/L High 7-45 [facility] Comment on above: Result Comment: Gema ents treated with Sulfasalazine may generate falsely decreased results for ALT. Performed By: #### 2 4325-3 #### MELISSA WHITEHEAD ([id number]) [facility] ([facility]) [address] [place] [address] 04009 AST With P-5'-P [Catalytic activity/Vol] 26 U/L Normal 9-39 [facility] Comment on above: Performed By: #### 2 4325-3 #### MELISSA WHITEHEAD ([id number]) [facility] ([facility]) [address] [place] [address] 75363 Bilirubin [Mass/Vol] 0.7 mg/dL Normal 0.0-1.2 [facility] Comment on above: Performed By: #### 2 4325-3 #### MELISSA WHITEHEAD ([id number]) [facility] ([facility]) [address] [place] [address] 93957 Bilirubin.direct [Mass/Vol] 0.1 mg/dL Normal 0.0-0.3 [facility] Comment on above: Performed By: #### 2 4325-3 #### MELISSA WHITEHEAD ([id number]) [facility] ([facility]) [address] [place] [address] 18749 Protein [Mass/Vol] 7.3 g/dL Normal 6.4-8.2 [facility] Comment on above: Performed By: #### 2 4325-3 #### MELISSA WHITEHEAD ([id number]) [facility] ([facility]) [address] [place] [address] 95637 Lactateon 06-19-2023 Lactate [Moles/Vol] 1.1 mmol/L 0.4 - 2. 0 mmol/L [facility] Lactate [Moles/Vol] 1.1 mmol/L Normal 0.4-2.0 [facility] Comment on above: Order Comment: Venip uncture immediately after or during the administration of Metamizole may lead to falsely low results. Testing should be performed immediately prior to Metamizole dosing. Performed By: #### 2 524-7 #### MELISSA WHITEHEAD ([id number]) [facility] ([facility]) [address] [place] [address] 91278 Lactate [Moles/Vol]on 2023 Interpretation and review of laboratory results Normal [facility] Venipuncture immediately after or during the administration of Metamizole may lead to falsely low results. Testing should be performed immediately prior to Metamizole dosing. [facility] Lipaseon 06-19-2023 Lipase [Catalytic activity/Vol] 30 U/L - U/L [facility] Lipase [Catalytic activity/V ol]on 06-19-2023 Interpretation and review of laboratory results Normal [facility] Venipuncture immediately after or during the administration of Metamizole may lead to falsely low results. Testing should be performed immediately prior to Metamizole dosing. [facility] No Panel Informationon 06-18 Interpretation and review of laboratory results Abnormal [facility] Triacylglycerol lipaseon Lipase [Catalytic activity/Vol] 30 U/L Normal [facility] Comment on above: Order Comment: Venip uncture immediately after or during the administration of Metamizole may lead to falsely low results. Testing should be performed immediately prior to Metamizole dosing. Performed By: #### 3 040-3 #### TORRES VENTURA ([id number]) [facility] ([facility]) [address] [place] [address] Urinalysis complete W Reflex Culture panel (U)on 06-19-2023 Appearance (U) Clear Clear [facility] Bilirubin (U) [Mass/Vol] Negative NEGATIVE [facility] Color (U) Straw Straw, Yellow [facility] Glucose Auto test strip (U) [Mass/Vol] Negative NEGATIVE mg/dL [facility] Interpretation and review of laboratory results Abnormal [facility] Ketones (U) [Mass/Vol] 80 (2+) Abnormal NEGATIVE mg/d L [facility] Leukocyte esterase Auto test strip Ql (U) Negative NEGATIVE [facility] Mucus Auto (Urine sed) [#/Area] 1+ Reference range not established. /LPF [facility] Nitrite Auto test strip Ql (U) Negative NEGATIVE [facility] pH (U) 5.0 [pH] 5.0, 5.5, 6.0, 6.5, 7.0, 7.5, 8.0 [facility] Protein (U) [Mass/Vol] 30 (1+) Abnormal NEGATIVE mg/d L [facility] RBC (U) [#/Vol] MODERATE (2+) Abnormal NEGATIVE [facility] RBC Auto (Urine sed) [#/Area] 1-2 NONE, 1-2, 3-5 /HPF [facility] Specific gravity (U) [Rel density] 1.017 1.005 - 1.035 [facility] Urobilinogen (U) [Mass/Vol] mg/dL NINF - 2.0 mg/dL [facility] WBC Auto (Urine sed) [#/Area] 1-5 1-5, NONE /HPF [facility] Appearance (U) Clear Normal Clear [facility] Comment on above: Performed By: #### 5 8077-9 #### MELISSA WHITEHEAD ([id number]) [facility] ([facility]) [address] [place] [address] Bilirubin (U) [Mass/Vol] Negative Normal NEGATIVE [facility] Comment on above: Performed By: #### 5 8077-9 #### MELISSA WHITEHEAD ([id number]) [facility] ([facility]) [address] [place] [address] Color (U) Straw Normal Straw, Yellow [facility] Comment on above: Performed By: #### 5 8077-9 #### MELISSA WHITEHEAD ([id number]) [facility] ([facility]) [address] [place] [address] 44311 Glucose Auto test strip (U) [Mass/Vol] Negative Normal NEGATIVE [facility] Comment on above: Performed By: #### 5 8077-9 #### MELISSA WHITEHEAD ([id number]) [facility] ([facility]) [address] [place] [address] 41182 Ketones (U) [Mass/Vol] 80 (2+) Abnormal NEGATIVE [facility] Comment on above: Performed By: #### 5 8077-9 #### MELISSA WHITEHEAD ([id number]) [facility] ([facility]) [address] [place] [address] 31642 Leukocyte esterase Auto test strip Ql (U) Negative Normal NEGATIVE [facility] Comment on above: Performed By: #### 5 8077-9 #### MELISSA WHITEHEAD ([id number]) [facility] ([facility]) [address] [place] [address] 92586 Mucus Auto (Urine sed) [#/Area] 1+ /LPF Normal Reference range not established. [facility] Comment on above: Performed By: #### 5 8077-9 #### MELISSA WHITEHEAD ([id number]) [facility] ([facility]) [address] [place] [address] 40007 Nitrite Auto test strip Ql (U) Negative Normal NEGATIVE [facility] Comment on above: Performed By: #### 5 8077-9 #### MELISSA WHITEHEAD ([id number]) [facility] ([facility]) [address] [place] [address] 82805 pH (U) 5.0 [pH] Normal 5.0, 5.5, 6.0, 6.5, 7.0, 7.5, 8.0 [facility] Comment on above: Performed By: #### 5 8077-9 #### MELISSA WHITEHEAD ([id number]) [facility] ([facility]) [address] [place] [address] 07614 Protein (U) [Mass/Vol] 30 (1+) Normal NEGATIVE [facility] Comment on above: Performed By: #### 5 8077-9 #### MELISSA WHITEHEAD ([id number]) [facility] ([facility]) [address] [place] [address] 32795 RBC (U) [#/Vol] MODERATE (2+) Abnormal NEGATIVE [facility] Comment on above: Performed By: #### 5 8077-9 #### MELISSA WHITEHEAD ([id number]) [facility] ([facility]) [address] [place] [address] 25898 RBC Auto (Urine sed) [#/Area] 1-2 Normal NONE, 1-2, 3-5 [facility] Comment on above: Performed By: #### 5 8077-9 #### MELISSA WHITEHEAD ([id number]) [facility] ([facility]) [address] [place] [address] Specific gravity (U) [Rel density] 1.017 Normal 1.005-1.035 [facility] Comment on above: Performed By: #### 5 8077-9 #### MELISSA WHITEHEAD ([id number]) [facility] ([facility]) [address] [place] [address] Urobilinogen (U) [Mass/Vol] mg/dL Normal <2.0 [facility] Comment on above: Performed By: #### 5 8077-9 #### MELISSA WHITEHEAD ([id number]) [facility] ([facility]) [address] [place] [address] WBC Auto (Urine sed) [#/Area] 1-5 Normal 1-5, NONE [facility] Comment on above: Performed By: #### 5 8077-9 #### MELISSA WHITEHEAD ([id number]) [facility] ([facility]) [address] [place], [place] [id number] CBC W Auto Differential pane l (Bld)on 06-18-2023 Basophils (Bld) [#/Vol] 0.03 10*3/uL [facility] Basophils/100 WBC (Bld) 0.5 % 0.0 - 2.0 % [facility] Eosinophils (Bld) [#/Vol] 0.05 10*3/uL [facility] Eosinophils/100 WBC (Bld) 0.9 % 0.0 - 6.0 % [facility] Erythrocyte distribution width (RBC) [Ratio] 14.7 % High 11.5 - 14.5 % [facility] Hematocrit (Bld) [Volume fraction] 40.2 % 36.0 - 46.0 % [facility] Hemoglobin (Bld) [Mass/Vol] 12.7 g/dL 12.0 - 16.0 g/dL [facility] Immature granulocytes (Bld) [#/Vol] 0.01 10*3/uL [facility] Immature granulocytes/100 WBC (Bld) 0.2 % 0.0 - 0.9 % [facility] Comment on above: Immature Granulocyte Count (IG) includes promyelocytes, myelocytes and metamyelocytes but does not include bands. Percent differential counts (%) should be interpreted in the context of the absolute cell counts (cells/UL). Interpretation and review of laboratory results Abnormal [facility] Lymphocytes (Bld) [#/Vol] 3.08 10*3/uL [facility] Lymphocytes/100 WBC (Bld) 56.4 % 13.0 - 44.0 % [facility] MCH (RBC) [Entitic mass] 28.0 pg 26.0 - 34.0 pg [facility] MCHC (RBC) [Mass/Vol] 31.6 g/dL Low 32.0 - 36.0 g/dL [facility] MCV (RBC) [Entitic vol] 89 fL 80 - 100 fL [facility] Monocytes (Bld) [#/Vol] 0.38 10*3/uL [facility] Monocytes/100 WBC (Bld) 7.0 % 2.0 - 10.0 % [facility] Neutrophils (Bld) [#/Vol] 1.91 10*3/uL [facility] Comment on above: Percent differential counts (%) should be interpreted in the context of the absolute cell counts (cells/uL). Neutrophils/100 WBC (Bld) 35.0 % 40.0 - 80.0 % [facility] Nucleated RBC/100 WBC (Bld) [Ratio] 0.0 % [facility] Platelets (Bld) [#/Vol] 208 10*3/uL [facility] RBC (Bld) [#/Vol] 4.54 10*6/uL [facility] WBC (Bld) [#/Vol] 5.5 10*3/uL [facility] Basophils (Bld) [#/Vol] 0.03 x10*3/uL Normal 0.00-0.10 [facility] Comment on above: Performed By: #### 5 7021-8 #### MELISSA WHITEHEAD ([id number]) [facility] ([facility]) [address] [place] [address] 87127 Basophils/100 WBC (Bld) 0.5 % Normal 0.0-2.0 [facility] Comment on above: Performed By: #### 5 7021-8 #### MELISSA WHITEHEAD ([id number]) [facility] ([facility]) [address] [place] [address] 78224 Eosinophils (Bld) [#/Vol] 0.05 x10*3/uL Normal 0.00-0.70 [facility] Comment on above: Performed By: #### 5 7021-8 #### MELISSA WHITEHEAD ([id number]) [facility] ([facility]) [address] [place] [address] 88305 Eosinophils/100 WBC (Bld) 0.9 % Normal 0.0-6.0 [facility] Comment on above: Performed By: #### 5 7021-8 #### MELISSA WHITEHEAD ([id number]) [facility] ([facility]) [address] [place] [address] 73663 Erythrocyte distribution width (RBC) [Ratio] 14.7 % High 11.5-14.5 [facility] Comment on above: Performed By: #### 5 7021-8 #### MELISSA WHITEHEAD ([id number]) [facility] ([facility]) [address] [place] [address] 35514 Hematocrit (Bld) [Volume fraction] 40.2 % Normal 36.0-46.0 [facility] Comment on above: Performed By: #### 5 7021-8 #### MELISSA WHITEHEAD ([id number]) [facility] ([facility]) [address] [place] [address] 54664 Hemoglobin (Bld) [Mass/Vol] 12.7 g/dL Normal 12.0-16.0 [facility] Comment on above: Performed By: #### 5 7021-8 #### MELISSA WHITEHEAD ([id number]) [facility] ([facility]) [address] [place] [address] 91894 Immature granulocytes (Bld) [#/Vol] 0.01 x10*3/uL Normal 0.00-0.70 [facility] Comment on above: Performed By: #### 5 7021-8 #### MELISSA WHITEHEAD ([id number]) [facility] ([facility]) [address] [place] [address] 52144 Immature granulocytes/100 WBC (Bld) 0.2 % Normal 0.0-0.9 [facility] Comment on above: Result Comment: Betty ture Granulocyte Count (IG) includes promyelocytes, myelocytes and metamyelocytes but does not include bands. Percent differential counts (%) should be interpreted in the context of the absolute cell counts (cells/UL). Performed By: #### 5 7021-8 #### MELISSA WHITEHEAD ([id number]) [facility] ([facility]) [address] [place] [address] 99606 Lymphocytes (Bld) [#/Vol] 3.08 x10*3/uL Normal 1.20-4.80 [facility] Comment on above: Performed By: #### 5 7021-8 #### MELISSA WHITEHEAD ([id number]) [facility] ([facility]) [address] [place] [address] 88129 Lymphocytes/100 WBC (Bld) 56.4 % Normal 13.0-44.0 [facility] Comment on above: Performed By: #### 5 7021-8 #### MELISSA WHITEHEAD ([id number]) [facility] ([facility]) [address] [place] [address] 56374 MCH (RBC) [Entitic mass] 28.0 pg Normal 26.0-34.0 [facility] Comment on above: Performed By: #### 5 7021-8 #### MELISSA WHITEHEAD ([id number]) [facility] ([facility]) [address] [place] [address] 64145 MCHC (RBC) [Mass/Vol] 31.6 g/dL Low 32.0-36.0 [facility] Comment on above: Performed By: #### 5 7021-8 #### MELISSA WHITEHEAD ([id number]) [facility] ([facility]) [address] [place] [address] 82364 MCV (RBC) [Entitic vol] 89 fL Normal 80-100 U [facility] Comment on above: Performed By: #### 5 7021-8 #### MELISSA WHITEHEAD ([id number]) [facility] ([facility]) [address] [place] [address] 83839 Monocytes (Bld) [#/Vol] 0.38 x10*3/uL Normal 0.10-1.00 [facility] Comment on above: Performed By: #### 5 7021-8 #### MELISSA WHITEHEAD ([id number]) [facility] ([facility]) [address] [place] [address] 48125 Monocytes/100 WBC (Bld) 7.0 % Normal 2.0-10.0 [facility] Comment on above: Performed By: #### 5 7021-8 #### MELISSA WHITEHEAD ([id number]) [facility] ([facility]) [address] [place] [address] 56416 Neutrophils (Bld) [#/Vol] 1.91 x10*3/uL Normal 1.20-7.70 [facility] Comment on above: Result Comment: Perc ent differential counts (%) should be interpreted in the context of the absolute cell counts (cells/uL). Performed By: #### 5 7021-8 #### MELISSA WHITEHEAD ([id number]) [facility] ([facility]) [address] [place] [address] 10100 Neutrophils/100 WBC (Bld) 35.0 % Normal 40.0-80.0 [facility] Comment on above: Performed By: #### 5 7021-8 #### MELISSA WHITEHEAD ([id number]) [facility] ([facility]) [address] [place] [address] 17720 Nucleated RBC/100 WBC (Bld) [Ratio] 0.0 /100 WBCs Normal 0.0-0.0 [facility] Comment on above: Performed By: #### 5 7021-8 #### MELISSA WHITEHEAD ([id number]) [facility] ([facility]) [address] [place] [address] Platelets (Bld) [#/Vol] 208 x10*3/uL Normal 150-450 [facility] Comment on above: Performed By: #### 5 7021-8 #### MELISSA WHITEHEAD ([id number]) [facility] ([facility]) [address] [place] [address] RBC (Bld) [#/Vol] 4.54 x10*6/uL Normal 4.00-5.20 [facility] Comment on above: Performed By: #### 5 7021-8 #### MELISSA WHITEHEAD ([id number]) [facility] ([facility]) [address] [place] [address] WBC (Bld) [#/Vol] 5.5 x10*3/uL Normal 4.4-11.3 [facility] Comment on above: Performed By: #### 5 7021-8 #### MELISSA WHITEHEAD ([id number]) [facility] ([facility]) [address] [place] [address] Comprehensive metabolic 2000 panelon 06-18-2023 Albumin BCP dye [Mass/Vol] 4.1 g/dL 3.4 - 5.0 g/dL [facility] ALP [Catalytic activity/Vol] 54 U/L 33 - 110 U/L [facility] ALT With P-5'-P [Catalytic activity/Vol] 58 U/L High 7 - 45 U/L [facility] Comment on above: Patients treated wit h Sulfasalazine may generate falsely decreased results for ALT. Anion gap [Moles/Vol] 10 mmol/L 10 - 20 mmol/L [facility] AST With P-5'-P [Catalytic activity/Vol] 27 U/L 9 - 39 U/L [facility] Bilirubin [Mass/Vol] 0.7 mg/dL 0.0 - 1.2 mg/dL [facility] Calcium [Mass/Vol] 8.4 mg/dL Low 8.6 - 10. 3 mg/dL [facility] Chloride [Moles/Vol] 103 mmol/L 98 - 107 mmol/L [facility] CO2 [Moles/Vol] 26 mmol/L 21 - 32 mmol/L Unive [facility] Creatinine [Mass/Vol] 0.83 mg/dL 0.50 - 1.05 mg/dL [facility] eGFR - PINF [facility] Comment on above: Calculations of nick mated GFR are performed using the 2020 CKD-EPI Study Refit equation without the race variable for the IDMS-Traceable creatinine methods. https://jasn.asnjournals.org/content/early//ASN.2020 211959 Glucose [Mass/Vol] 81 mg/dL 74 - 99 mg/dL [facility] Interpretation and review of laboratory results Abnormal [facility] Potassium [Moles/Vol] 3.4 mmol/L Low 3.5 - 5.3 mmol/L [facility] Protein [Mass/Vol] 6.1 g/dL Low 6.4 - 8.2 g/dL [facility] Sodium [Moles/Vol] 136 mmol/L 136 - 145 mmol/L [facility] Urea nitrogen [Mass/Vol] 5 mg/dL Low 6 - 23 mg/dL [facility] Albumin BCP dye [Mass/Vol] 4.1 g/dL Normal 3.4-5.0 [facility] Comment on above: Performed By: #### 2 4323-8 #### MELISSA WHITEHEAD ([id number]) [facility] ([facility]) [address] [place] [address] 33143 ALP [Catalytic activity/Vol] 54 U/L Normal 33-110 [facility] Comment on above: Performed By: #### 2 4323-8 #### MELISSA WHITEHEAD ([id number]) [facility] ([facility]) [facility] [place] [address] ALT With P-5'-P [Catalytic activity/Vol] 58 U/L High 7-45 [facility] Comment on above: Result Comment: Gema ents treated with Sulfasalazine may generate falsely decreased results for ALT. Performed By: #### 2 4323-8 #### MELISSA WHITEHEAD ([id number]) [facility] ([facility]) [address] [place] [address] Anion gap [Moles/Vol] 10 mmol/L Normal 10-20 [facility] Comment on above: Performed By: #### 2 4323-8 #### MELISSA WHITEHEAD ([id number]) [facility] ([facility]) [address] [place] [address] AST With P-5'-P [Catalytic activity/Vol] 27 U/L Normal 9-39 [facility] Comment on above: Performed By: #### 2 432-8 #### MELISSA WHITEHEAD ([id number]) [facility] ([facility]) [address] [place] [address] Bilirubin [Mass/Vol] 0.7 mg/dL Normal 0.0-1.2 [facility] Comment on above: Performed By: #### 2 4322-8 #### MELISSA WHITEHEAD ([id number]) [facility] ([facility]) [address] [place] [address] Calcium [Mass/Vol] 8.4 mg/dL Low 8.6-10.3 [facility] Comment on above: Performed By: #### 2 432-8 #### MELISSA WHITEHEAD ([id number]) [facility] ([facility]) [address] [place] [address] Chloride [Moles/Vol] 103 mmol/L Normal 98-107 [facility] Comment on above: Performed By: #### 2 432-8 #### MELISSA WHITEHEAD ([id number]) [facility] ([facility]) [address] [place] [address] CO2 [Moles/Vol] 26 mmol/L Normal 21-32 [facility] Comment on above: Performed By: #### 2 4323-8 #### MELISSA WHITEHEAD ([id number]) [facility] ([facility]) [address] [place] [address] Creatinine [Mass/Vol] 0.83 mg/dL Normal 0.50-1.05 [facility] Comment on above: Performed By: #### 2 4323-8 #### MELISSA WHITEHEAD ([id number]) [facility] ([facility]) [facility] [place] [address] GFR/1.73 sq M.predicted MDRD (S/P/Bld) [Vol rate/Area] mL/min/{1.73_m2} Normal >60 [facility] Comment on above: Result Comment: Calc ulations of estimated GFR are performed using the 2020 CKD-EPI Study Refit equation without the race variable for the IDMS-Traceable creatinine methods. https://jasn.asnjournals.org/content/early//ASN.2020 998067 Performed By: #### 2 4323-8 #### MELISSA WHITEHEAD ([id number]) [facility] ([facility]) [address] [place] [address] 19188 Glucose [Mass/Vol] 81 mg/dL Normal 74-99 [facility] Comment on above: Performed By: #### 2 432-8 #### MELISSA WHITEHEAD ([id number]) [facility] ([facility]) [address] [place] [address] 97440 Potassium [Moles/Vol] 3.4 mmol/L Low 3.5-5.3 [facility] Comment on above: Performed By: #### 2 4323-8 #### MELISSA WHITEHEAD ([id number]) [facility] ([facility]) [address] [place] [address] 86085 Protein [Mass/Vol] 6.1 g/dL Low 6.4-8.2 [facility] Comment on above: Performed By: #### 2 4323-8 #### MELISSA WHITEHEAD ([id number]) [facility] ([facility]) [address] [place] [address] 21821 Sodium [Moles/Vol] 136 mmol/L Normal 136-145 [facility] Comment on above: Performed By: #### 2 4323-8 #### MELISSA WHITEHEAD ([id number]) [facility] ([facility]) [address] [place] [address] 10941 Urea nitrogen [Mass/Vol] 5 mg/dL Low 6- [facility] Comment on above: Performed By: #### 2 4323-8 #### MELISSA WHITEHEAD ([id number]) [facility] ([facility]) [address] [place] [address] 02397 Lipaseon 06-18-2023 Lipase [Catalytic activity/Vol] 36 U/L 9 - U/L [facility] Lipase [Catalytic activity/V ol]on 06-18-2023 Interpretation and review of laboratory results Normal [facility] Venipuncture immediately after or during the administration of Metamizole may lead to falsely low results. Testing should be performed immediately prior to Metamizole dosing. [facility] No Panel Informationon 06-17 [facility] Triacylglycerol lipaseon Lipase [Catalytic activity/Vol] 36 U/L Normal [facility] Comment on above: Order Comment: Venip uncture immediately after or during the administration of Metamizole may lead to falsely low results. Testing should be performed immediately prior to Metamizole dosing. Performed By: #### 3 040-3 #### MELISSA WHITEHEAD ([id number]) [facility] ([facility]) [address] [place], [place] [id number] Urinalysis complete W Reflex Culture panel (U)on 06-18-2023 Appearance (U) Hazy Abnormal Clear [facility] Bilirubin (U) [Mass/Vol] Negative NEGATIVE [facility] Color (U) Yellow Straw, Yellow [facility] Glucose Auto test strip (U) [Mass/Vol] Negative NEGATIVE mg/dL [facility] Interpretation and review of laboratory results Abnormal [facility] Ketones (U) [Mass/Vol] 80 (2+) Abnormal NEGATIVE mg/d L [facility] Leukocyte esterase Auto test strip Ql (U) Negative NEGATIVE [facility] Nitrite Auto test strip Ql (U) Negative NEGATIVE [facility] pH (U) 6.0 [pH] 5.0, 5.5, 6.0, 6.5, 7.0, 7.5, 8.0 [facility] Protein (U) [Mass/Vol] Negative NEGATIVE mg/d L [facility] RBC (U) [#/Vol] Negative NEGATIVE [facility] Specific gravity (U) [Rel density] 1.019 1.005 - 1.035 [facility] Urobilinogen (U) [Mass/Vol] mg/dL NINF - 2.0 mg/dL [facility] Appearance (U) Hazy Normal Clear [facility] Comment on above: Performed By: #### 5 8077-9 #### MELISSA WHITEHEAD ([id number]) [facility] ([facility]) [address] [place] [address] 73084 Bilirubin (U) [Mass/Vol] Negative Normal NEGATIVE [facility] Comment on above: Performed By: #### 5 8077-9 #### MELISSA WHITEHEAD ([id number]) [facility] ([facility]) [address] [place] [address] Color (U) Yellow Normal Straw, Yellow [facility] Comment on above: Performed By: #### 5 8077-9 #### MELISSA WHITEHEAD ([id number]) [facility] ([facility]) [address] [place] [address] 36914 Glucose Auto test strip (U) [Mass/Vol] Negative Normal NEGATIVE [facility] Comment on above: Performed By: #### 5 8077-9 #### MELISSA WHITEHEAD ([id number]) [facility] ([facility]) [address] [place] [address] 06765 Ketones (U) [Mass/Vol] 80 (2+) Abnormal NEGATIVE [facility] Comment on above: Performed By: #### 5 8077-9 #### MELISSA WHITEHEAD ([id number]) [facility] ([facility]) [address] [place] [address] 91533 Leukocyte esterase Auto test strip Ql (U) Negative Normal NEGATIVE [facility] Comment on above: Performed By: #### 5 8077-9 #### MELISSA WHITEHEAD ([id number]) [facility] ([facility]) [address] [place] [address] 30316 Nitrite Auto test strip Ql (U) Negative Normal NEGATIVE [facility] Comment on above: Performed By: #### 5 8077-9 #### MELISSA WHITEHEDA ([id number]) [facility] ([facility]) [address] [place] [address] pH (U) 6.0 [pH] Normal 5.0, 5.5, 6.0, 6.5, 7.0, 7.5, 8.0 [facility] Comment on above: Performed By: #### 5 8077-9 #### MELISSA WHITEHEAD ([id number]) [facility] ([facility]) [address] [place] [address] Protein (U) [Mass/Vol] Negative Normal NEGATIVE [facility] Comment on above: Performed By: #### 5 8077-9 #### MELISSA WHITEHEAD ([id number]) [facility] ([facility]) [address] [place] [address] RBC (U) [#/Vol] Negative Normal NEGATIVE [facility] Comment on above: Performed By: #### 5 8077-9 #### MELISSA WHITEHEAD ([id number]) [facility] ([facility]) [address] [place] [address] Specific gravity (U) [Rel density] 1.019 Normal 1.005-1.035 [facility] Comment on above: Performed By: #### 5 8077-9 #### MELISSA WHITEHEAD ([id number]) [facility] ([facility]) [address] [place] [address] Urobilinogen (U) [Mass/Vol] mg/dL Normal <2.0 [facility] Comment on above: Performed By: #### 5 8077-9 #### MELISSA WHITEHEAD ([id number]) [facility] ([facility]) [address] [place] [address] Surgical pathology studyon 0 06-17-2023 Surgical pathology study Pathology report.total SEE COMMENT Surgical Pathology Case: [id number] Authorizing Provider: Alla Llanes MD Collected: 06/17/2023 0958 Ordering Location: [facility] Received: 06/17/2023 1600 Center OR Pathologist: Cata [...] node measuring 1.0 cm in greatest dimension. [employer] sections consisting of the cystic duct margin, and gallbladder wall, and lymph node are submitted in one cassette. [facility] Comment on above: Order Comment: Pre-o p diagnosis:Symptomatic cholelithiasis [K80.20] URINE OB DIP B/Oon 3 Glucose Ql (U) Negative Neg mg/dL [facility] Protein.monoclonal (U) [Mass/Vol] Negative Neg mg/dL [facility] URINE OB DIP B/Oon 3 Glucose Ql (U) Negative Neg mg/dL [facility] Protein.monoclonal (U) [Mass/Vol] Negative Neg mg/dL [facility] URINE OB DIP B/Oon 3 Glucose Ql (U) Negative Neg mg/dL [facility] Protein.monoclonal (U) [Mass/Vol] Negative Neg mg/dL [facility] Absolute lymphocyte countOrd ered By: Neelima Dahl on 09-24-2022 Lymphocytes Auto (Unsp spec) [#/Vol] 1.26 10*3/uL 0.83-4.51 [facility] Automated blood hematocrit ( percentage)Ordered By: Neelima Dahl on 09-24-2022 Hematocrit (Bld) [Volume fraction] 30.4 % 37-47 [facility] Basophil percentageOrdered B y: Neelima Dahl on 09-24-2022 Basophils/100 WBC (Bld) 0.4 % 0-1 [facility] Eosinophils/100 WBC (Bld) 1.1 % 0-5 [facility] Neutrophils (Bld) [#/Vol] 3.7 10*3/uL 2.0-7.7 [facility] Neutrophils/100 WBC (Bld) 65.8 % 47-70 [facility] WBC (Bld) [#/Vol] 5.6 10*3/uL 4.4-11.0 [facility] Blood erythrocytes count (nu mber/volume)Ordered By: Neelima Dahl on 09-24-2022 RBC (Bld) [#/Vol] 3.21 10*6/uL 4.2-5.4 [facility] Blood hemoglobin measurement (mass/volume)Ordered By: Neelima Dahl on 09-24-2022 Hemoglobin (Bld) [Mass/Vol] 9.6 g/dL 12.0-15.0 [facility] Blood lymphocytes/100 leukoc ytesOrdered By: Neelima Dahl on 09-24-2022 Lymphocytes/100 WBC (Bld) 22.6 % 19-41 [facility] Blood monocytes/100 leukocyt esOrdered By: Neelima Dahl on 09-24-2022 Monocytes/100 WBC (Bld) 9.9 % 0-10 [facility] Blood platelet mean volumeOr dered By: Neelima Dahl on 09-24-2022 Platelet mean volume (Bld) [Entitic vol] 12.7 fL 6.2-12.0 [facility] Determination of erythrocyte mean corpuscular volume (MCV)Ordered By: Neelima Dahl on 09-24-2022 MCV (RBC) [Entitic vol] 94.7 fL 81-99 [facility] GEST GLUC SCREEN, 1-HR, 50 G M, NON-FASTINGon 09-24-2022 Glucose 1hr Gest 93 [facility] Gestational diabetes screen 1-hour screen with 50g oral glucose loadOrdered By: Neelima Dahl on 09-24-2022 Glucose 1 Hr post 50 g glucose PO [Mass/Vol] 93 mg/dL 70-140 [facility] Laboratory - Hematology and Cell countsOrdered By: Neelima Dahl on 09-24-2022 Erythrocyte distribution width (RBC) [Entitic vol] 45.2 fL 35.1-43.9 [facility] Erythrocyte distribution width (RBC) [Ratio] 13.1 % 11.6-14.6 [facility] Immature granulocytes/100 WBC (Bld) 0.200 % 0.0-0.9 [facility] Comment on above: IG% - Immature Granu locytes (promyelocytes, myelocytes and metamyelocytes) > 1% indicates that a LEFT SHIFT is Present. MCH (RBC) [Entitic mass] 29.9 pg 27.0-32.0 [facility] Nucleated RBC/100 WBC (Bld) [Ratio] 0 % 0-5 [facility] MCHC Auto (RBC) [Mass/Vol]Or dered By: Neelima Dahl on 09-24-2022 MCHC (RBC) [Mass/Vol] 31.6 g/dL 32-36 [facility] Platelets bldOrdered By: Curtis Dahl on 09-24-2022 Platelets (Bld) [#/Vol] 132 10*3/uL 150-450 [facility] Reagin and Treponema pallidu m IgG and IgM [Interp]on 09-24-2022 T. pallidum IgG+IgM IA Ql (S) Non-Reactive Nonreactive [facility] Serum Treponema species anti body detectionOrdered By: Neelima Dahl on 09-24-2022 Treponema sp Ab Ql (S) Non-Reactive [facility] Absolute lymphocyte countOrd ered By: Jimmy Anna on 08-29-2022 Lymphocytes Auto (Unsp spec) [#/Vol] 1.26 10*3/uL 0.83-4.51 [facility] Basophil percentageOrdered B y: Jimmy Anna on 08-29-2022 Basophil percentage 0-5 SEEN /hpf 0-5 [facility] Basophils/100 WBC (Bld) 0.2 % 0-1 [facility] Bilirubin [Mass/Vol] 0.40 mg/dL 0.20-1.00 [facility] Comment on above: For patients on eltr ombopag therapy, use of Dimension [place] TBIL is not recommended. Chloride [Moles/Vol] 108 mmol/L 98-107 [facility] Eosinophils/100 WBC (Bld) 0.8 % 0-5 [facility] Glucose [Mass/Vol] 77 mg/dL 74-106 [facility] Neutrophils (Bld) [#/Vol] 7.2 10*3/uL 2.0-7.7 [facility] Neutrophils/100 WBC (Bld) 78.5 % 47-70 [facility] Potassium [Moles/Vol] 3.9 mmol/L 3.5-5.[address] [facility] Protein [Mass/Vol] 5.6 g/dL 6.4-8.2 [facility] Sodium [Moles/Vol] 138 mmol/L 136-145 [facility] WBC (Bld) [#/Vol] 9.1 10*3/uL 4.4-11.0 [facility] Bilirubin Test strip Ql (U)O rdered By: Jimmy Anna on 08-29-2022 Bilirubin Ql (U) Negative Negative [facility] Blood erythrocytes count (nu mber/volume)Ordered By: Jimmy Anna on 08-29-2022 RBC (Bld) [#/Vol] 3.23 10*6/uL 4.2-5.4 [facility] Blood hemoglobin measurement (mass/volume)Ordered By: Jimmy Anna on 08-29-2022 Hemoglobin (Bld) [Mass/Vol] 9.8 g/dL 12.0-15.0 [facility] Blood lymphocytes/100 leukoc ytesOrdered By: Jimmy Anna on 08-29-2022 Lymphocytes/100 WBC (Bld) 13.8 % 19-41 [facility] Blood monocytes/100 leukocyt esOrdered By: Jimmy Anna on 08-29-2022 Monocytes/100 WBC (Bld) 6.4 % 0-10 [facility] Blood platelet mean volumeOr dered By: Jimmy Anna on 08-29-2022 Platelet mean volume (Bld) [Entitic vol] 12.2 fL 6.2-12.0 [facility] Determination of erythrocyte mean corpuscular volume (MCV)Ordered By: Jimmy Anna on 08-29-2022 MCV (RBC) [Entitic vol] 95.4 fL 81-99 [facility] Hematocrit Auto (Bld) [Volum e fraction]Ordered By: Jimmy Anna on 08-29-2022 Hematocrit (Bld) [Volume fraction] 30.8 % 37-47 [facility] Ketones Test strip Ql (U)Ord ered By: Jimmy Anna on 08-29-2022 Ketones Ql (U) 50 mg/dl Negative [facility] Laboratory - Chemistry and C hemistry - challengeOrdered By: Jimmy Anna on 08-29-2022 ALP [Catalytic activity/Vol] 54 U/L 45-117 [facility] ALT [Catalytic activity/Vol] 19 U/L 13-56 [facility] CO2 [Moles/Vol] 23.0 mmol/L 21.0-32.0 [facility] Globulin (S) [Mass/Vol] 3.1 g/dL 2.2-4.2 [facility] Lipase [Catalytic activity/Vol] 25 U/L 13-75 [facility] Comment on above: Please note:LIPASE r evised reference range effective 22. New Lipase methodology. Expected to produce lower values than the previous assay method. NEW Reference Range: 13 - 75 U/L Urea nitrogen/Creatinine [Mass ratio] 15.5 mg/mg 10-20 [facility] Laboratory - Hematology and Cell countsOrdered By: Jimmy Anna on 08-29-2022 Erythrocyte distribution width (RBC) [Entitic vol] 47.0 fL 35.1-43.9 [facility] Erythrocyte distribution width (RBC) [Ratio] 13.4 % 11.6-14.6 [facility] Immature granulocytes/100 WBC (Bld) 0.300 % 0.0-0.9 [facility] Comment on above: IG% - Immature Granu locytes (promyelocytes, myelocytes and metamyelocytes) > 1% indicates that a LEFT SHIFT is Present. MCH (RBC) [Entitic mass] 30.3 pg 27.0-32.0 [facility] Nucleated RBC/100 WBC (Bld) [Ratio] 0 % 0-5 [facility] MCHC Auto (RBC) [Mass/Vol]Or dered By: Jimmy Anna on 08-29-2022 MCHC (RBC) [Mass/Vol] 31.8 g/dL 32-[address] [facility] Mucus LM Ql (Urine sed)Order ed By: Jimmy Anna on 08-29-2022 Mucus Ql (Urine sed) 1+ /hpf [facility] Nitrite Test strip Ql (U)Ord ered By: Jimmy Anna on 08-29-2022 Nitrite Ql (U) Negative Negative [facility] No Panel InformationOrdered By: Jimmy Anna on 08-29-2022 Estimated Creatinine Clearance Calc 143.95 ml/min [facility] Estimated GFR (MDRD) Amer 196 mL/min >60 [facility] Comment on above: GFR Calc Estimated GFR (MDRD) Non-Af Amer 162 mL/min >60 [facility] Comment on above: Non- GFR Calc Platelets bldOrdered By: Nicky Anna on 08-29-2022 Platelets (Bld) [#/Vol] 142 10*3/uL 150-450 [facility] Protein Test strip Ql (U)Ord ered By: Jimmy Anna on 08-29-2022 Protein Ql (U) 15 mg/dl Negative [facility] Serum or plasma albumin reynaldo urement (mass/volume)Ordered By: Jimmy Anna on 08-29-2022 Albumin [Mass/Vol] 2.5 g/dL 3.2-5.0 [facility] Serum or plasma albumin/glob ulin mass ratioOrdered By: Jimmy Anna on 08-29-2022 Albumin/Globulin [Mass ratio] 0.8 {ratio} 0.9-2.4 [facility] Serum or plasma calcium reynaldo urement (mass/volume)Ordered By: Jimmy Anna on 08-29-2022 Calcium [Mass/Vol] 7.7 mg/dL 8.5-10.1 [facility] Serum or plasma creatinine m easurement (mass/volume)Ordered By: Jimmy Anna on 08-29-2022 Creatinine [Mass/Vol] 0.52 mg/dL 0.55-1.[address] [facility] Comment on above: The validity of the calculated GFR & GFRAA in patients over 70 years has not been determined. Clinical correlation is essential. Serum or plasma urea nitroge n measurement (mass/volume)Ordered By: Jimmy Anna on 08-29-2022 Urea nitrogen [Mass/Vol] 8 mg/dL 7-18 [facility] Squamous epithelial cells de tection in urine sediment by light microscopyOrdered By: Jimmy Anna on 08-29-2022 Epithelial cells.squamous LM Ql (Urine sed) 0-5 SEEN /hpf 5-10 [facility] Thin prep Papanicolaou smear with manual screeningOrdered By: Jimmy Anna on 08-29-2022 Thin prep Papanicolaou smear with manual screening 17 U/L 15-37 [facility] Thin prep Papanicolaou smear with manual screening 7 5-15 [facility] Urine blood detectionOrdered By: Jimmy Anna on 08-29-2022 RBC Ql (U) Negative Negative [facility] RBC Ql (U) 0 SEEN /hpf 0-5 [facility] Urine clarityOrdered By: Nicky Anna on 08-29-2022 Clarity (U) Sl. Cloudy Clear [facility] Urine color determinationOrd ered By: Jimmy Anna on 08-29-2022 Color (U) Yellow Yellow [facility] Urine glucose detectionOrder ed By: Jimmy Anna on 08-29-2022 Glucose Ql (U) Normal mg/dl Normal [facility] Urine leukocyte esterase det ection by dipstickOrdered By: Jimmy Anna on 08-29-2022 Leukocyte esterase Test strip Ql (U) 25 /ul Negative [facility] Urine pHOrdered By: Jimmy denise on 08-29-2022 pH (U) 6.0 [pH] 5.0 - 8.0 [facility] Urine sediment bacteria coun t by microscopy (number/high power field)Ordered By: Jimmy Anna on 08-29-2022 Bacteria LM.HPF (Urine sed) [#/Area] Not Reportable [facility] Urine specific gravity measu rementOrdered By: Jimmy Anna on 08-29-2022 Specific gravity (U) [Rel density] 1.020 1.002-1.030 [facility] Urobilinogen Auto test strip Ql (U)Ordered By: Jimmy Anna on 08-29-2022 Urobilinogen Ql (U) Normal mg/dl Normal [facility] Initial Visit (General Surge ry)on 08-22-2022 [...] TABS (Ondansetron HCl) Vitals Vital Signs Recorded: [id number] 09:45AM Heart Kfat960 Nzhthwts805 Szzryhkvq49 Height5 ft 3 in 2-20 Stature Xrzhkmsxoc79 % Rmizxy320 lb 2-20 Weight Sseshusznx34 % BMI Wxuthtspvx86.38 kg/m2 BMI Ztgujefqrk99 % BSA Calculated1.62 Tobacco Useb) No Falls [...] Aug 22 2022 10:21AM EST (Author) Normal [facility] Absolute lymphocyte countOrd ered By: Kristofer Low on 08-17-2022 Lymphocytes Auto (Unsp spec) [#/Vol] 1.32 10*3/uL 0.83-4.51 [facility] Basophil percentageOrdered B y: Kristofer Low on 08-17-2022 Basophils/100 WBC (Bld) 0.2 % 0-1 [facility] Bilirubin [Mass/Vol] 0.30 mg/dL 0.20-1.00 [facility] Comment on above: For patients on eltr ombopag therapy, use of Dimension [place] TBIL is not recommended. Chloride [Moles/Vol] 108 mmol/L 98-107 [facility] Eosinophils/100 WBC (Bld) 0.5 % 0-5 [facility] Glucose [Mass/Vol] 79 mg/dL 74-106 [facility] Neutrophils (Bld) [#/Vol] 6.5 10*3/uL 2.0-7.7 [facility] Neutrophils/100 WBC (Bld) 76.2 % 47-70 [facility] Potassium [Moles/Vol] 4.0 mmol/L 3.5-5.[address] [facility] Protein [Mass/Vol] 5.6 g/dL 6.4-8.2 [facility] Sodium [Moles/Vol] 137 mmol/L 136-145 [facility] WBC (Bld) [#/Vol] 8.5 10*3/uL 4.4-11.0 [facility] Blood erythrocytes count (nu mber/volume)Ordered By: Kristofer Low on 08-17-2022 RBC (Bld) [#/Vol] 3.21 10*6/uL 4.2-5.4 [facility] Blood hemoglobin measurement (mass/volume)Ordered By: Kristofer Low on 08-17-2022 Hemoglobin (Bld) [Mass/Vol] 10.0 g/dL 12.0-15.0 [facility] Blood lymphocytes/100 leukoc ytesOrdered By: Kristofer Low on 08-17-2022 Lymphocytes/100 WBC (Bld) 15.6 % 19-41 [facility] Blood monocytes/100 leukocyt esOrdered By: Kristofer Low on 08-17-2022 Monocytes/100 WBC (Bld) 7.1 % 0-10 [facility] Blood platelet mean volumeOr dered By: Kristofer oLw on 08-17-2022 Platelet mean volume (Bld) [Entitic vol] 11.8 fL 6.2-12.0 [facility] Determination of erythrocyte mean corpuscular volume (MCV)Ordered By: Kristofer Low on 08-17-2022 MCV (RBC) [Entitic vol] 94.7 fL 81-99 [facility] Hematocrit Auto (Bld) [Volum e fraction]Ordered By: Kristofer Low on 08-17-2022 Hematocrit (Bld) [Volume fraction] 30.4 % 37-47 [facility] Laboratory - Chemistry and C hemistry - challengeOrdered By: Kristofer Low on 08-17-2022 ALP [Catalytic activity/Vol] 58 U/L 45-117 [facility] ALT [Catalytic activity/Vol] 28 U/L 13-56 [facility] CO2 [Moles/Vol] 24.0 mmol/L 21.0-32.0 [facility] Globulin (S) [Mass/Vol] 3.2 g/dL 2.2-4.2 [facility] Lipase [Catalytic activity/Vol] 28 U/L 13-75 [facility] Comment on above: Please note:LIPASE r evised reference range effective 22. New Lipase methodology. Expected to produce lower values than the previous assay method. NEW Reference Range: 13 - 75 U/L Urea nitrogen/Creatinine [Mass ratio] 15.9 mg/mg 10-20 [facility] Laboratory - Hematology and Cell countsOrdered By: Kristofer Low on 08-17-2022 Erythrocyte distribution width (RBC) [Entitic vol] 47.7 fL 35.1-43.9 [facility] Erythrocyte distribution width (RBC) [Ratio] 13.8 % 11.6-14.6 [facility] Immature granulocytes/100 WBC (Bld) 0.400 % 0.0-0.9 [facility] Comment on above: IG% - Immature Granu locytes (promyelocytes, myelocytes and metamyelocytes) > 1% indicates that a LEFT SHIFT is Present. MCH (RBC) [Entitic mass] 31.2 pg 27.0-32.0 [facility] Nucleated RBC/100 WBC (Bld) [Ratio] 0 % 0-5 [facility] MCHC Auto (RBC) [Mass/Vol]Or dered By: Kristofer Low on 08-17-2022 MCHC (RBC) [Mass/Vol] 32.9 g/dL 32-[address] [facility] No Panel InformationOrdered By: Kristofer Low on 08-17-2022 Estimated GFR (MDRD) Amer 176 mL/min >60 [facility] Comment on above: GFR Calc Estimated GFR (MDRD) Non-Af Amer 145 mL/min >60 [facility] Comment on above: Non- GFR Calc Platelets bldOrdered By: Lila Low on 08-17-2022 Platelets (Bld) [#/Vol] 137 10*3/uL 150-450 [facility] Serum or plasma albumin reynaldo urement (mass/volume)Ordered By: Kristofer Low on 08-17-2022 Albumin [Mass/Vol] 2.4 g/dL 3.2-5.0 [facility] Serum or plasma albumin/glob ulin mass ratioOrdered By: Kristofer Low on 08-17-2022 Albumin/Globulin [Mass ratio] 0.8 {ratio} 0.9-2.4 [facility] Serum or plasma calcium reynaldo urement (mass/volume)Ordered By: Kristofer Low on 08-17-2022 Calcium [Mass/Vol] 7.6 mg/dL 8.5-10.1 [facility] Serum or plasma creatinine m easurement (mass/volume)Ordered By: Kristofer Low on 08-17-2022 Creatinine [Mass/Vol] 0.56 mg/dL 0.55-1.[address] [facility] Comment on above: The validity of the calculated GFR & GFRAA in patients over 70 years has not been determined. Clinical correlation is essential. Serum or plasma urea nitroge n measurement (mass/volume)Ordered By: Kristofer Low on 08-17-2022 Urea nitrogen [Mass/Vol] 9 mg/dL 7-18 [facility] Thin prep Papanicolaou smear with manual screeningOrdered By: Kristofer Low on 08-17-2022 Thin prep Papanicolaou smear with manual screening 46 U/L 15-37 [facility] Thin prep Papanicolaou smear with manual screening 5 5-15 [facility] CBC AND DIFFERENTIALon 07-12 % AUTOMATED IMMATURE GRAN 0.2 % Normal 0.0 - 0.9 [facility] Comment on above: Result Comment: Betty ture Granulocyte Count (IG) includes promyelocytes, myelocytes and metamyelocytes but does not include bands. Percent differential counts (%) should be interpreted in the context of the absolute cell counts (cells/L). Performed By: #### C BCDF #### [address] [address] Basophils (Bld) [#/Vol] 0.02 10*3/uL Normal 0.00 - 0.1 0 [facility] Comment on above: Performed By: #### C BCDF #### [address] [address] Basophils/100 WBC (Bld) 0.3 % Normal 0.0 - 2.[address] [facility] Comment on above: Performed By: #### C BCDF #### [address] [address] Eosinophils (Bld) [#/Vol] 0.24 10*3/uL Normal 0.00 - 0.70 [facility] Comment on above: Performed By: #### C BCDF #### [address] [address] Eosinophils/100 WBC (Bld) 3.8 % Normal 0.0 - 6.0 [facility] Comment on above: Performed By: #### C BCDF #### [address] [address] Erythrocyte distribution width (RBC) [Ratio] 14.1 % Normal 11.5 - 14.5 [facility] Comment on above: Performed By: #### C BCDF #### [address] [address] Hematocrit (Bld) [Volume fraction] 32.2 % Low 36.0 - 46.0 [facility] Comment on above: Performed By: #### C BCDF #### [address] [address] Hemoglobin (Bld) [Mass/Vol] 10.7 g/dL Low 12.0 - 16.0 [facility] Comment on above: Performed By: #### C BCDF #### [address] [address] Lymphocytes (Bld) [#/Vol] 1.40 10*3/uL Normal 1.20 - 4.80 [facility] Comment on above: Performed By: #### C BCDF #### [address] [address] Lymphocytes/100 WBC (Bld) 22.2 % Normal 13.0 - 44.0 [facility] Comment on above: Performed By: #### C BCDF #### [address] [address] MCHC (RBC) [Mass/Vol] 33.2 g/dL Normal 32.0 - 36.0 [facility] Comment on above: Performed By: #### C BCDF #### [address] [address] MCV (RBC) [Entitic vol] 93 fL Normal 80 - [address] [facility] Comment on above: Performed By: #### C BCDF #### [address] [address] Monocytes (Bld) [#/Vol] 0.45 10*3/uL Normal 0.10 - 1.0 0 [facility] Comment on above: Performed By: #### C BCDF #### [address] [address] Monocytes/100 WBC (Bld) 7.1 % Normal 2.0 - 10.[address] [facility] Comment on above: Performed By: #### C BCDF #### [address] [address] Neutrophils (Bld) [#/Vol] 4.20 10*3/uL Normal 1.20 - 7.70 [facility] Comment on above: Result Comment: Perc ent differential counts (%) should be interpreted in the context of the absolute cell counts (cells/L). Performed By: #### C BCDF #### [address] [address] Neutrophils/100 WBC (Bld) 66.4 % Normal 40.0 - 80.0 [facility] Comment on above: Performed By: #### C BCDF #### [address] [address] Platelets (Bld) [#/Vol] 136 10*3/uL Low 150 - 450 [facility] Comment on above: Performed By: #### C BCDF #### [address] [address] RBC 3.48 x10E12/L Low 4.00 - 5.20 [facility] Comment on above: Performed By: #### C BCDF #### [address] [address] WBC (Bld) [#/Vol] 6.3 10*3/uL Normal 4.4 - 11.3 [facility] Comment on above: Performed By: #### C BCDF #### [address] [address] COMPREHENSIVE PANELon 2022 Albumin [Mass/Vol] 3.4 g/dL Normal 3.4 - 5.0 [facility] Comment on above: Performed By: #### C MP #### [address] [address] ALP [Catalytic activity/Vol] 40 U/L Normal 33 - 110 [facility] Comment on above: Performed By: #### C MP #### [address] [address] ALT [Catalytic activity/Vol] 11 U/L Normal 7 - 45 [facility] Comment on above: Result Comment: Gema ents treated with Sulfasalazine may generate falsely decreased results for ALT. Performed By: #### C MP #### [address] [address] Anion gap [Moles/Vol] 8 mmol/L Low 10 - 20 [facility] Comment on above: Performed By: #### C MP #### [address] [address] AST [Catalytic activity/Vol] 12 U/L Normal 9 - 39 [facility] Comment on above: Performed By: #### C MP #### [address] [address] Bilirubin [Mass/Vol] 0.4 mg/dL Normal 0.0 - 1.2 [facility] Comment on above: Performed By: #### C MP #### [address] [address] Calcium [Mass/Vol] 8.4 mg/dL Low 8.6 - 10.3 [facility] Comment on above: Performed By: #### C MP #### [address] [address] Chloride [Moles/Vol] 104 mmol/L Normal 98 - 107 [facility] Comment on above: Performed By: #### C MP #### [address] [address] Creatinine [Mass/Vol] 0.45 mg/dL Low 0.50 - 1.05 [facility] Comment on above: Performed By: #### C MP #### [address] [address] eGFR FEMALE >90 Normal >90 [facility] Comment on above: Result Comment: CALC ULATIONS OF ESTIMATED GFR ARE PERFORMED USING THE 2020 CKD-EPI STUDY REFIT EQUATION WITHOUT THE RACE VARIABLE FOR THE IDMS-TRACEABLE CREATININE METHODS. https://jasn.asnjournals.org/content/early//ASN.2020 421425 Performed By: #### C MP #### [address] [address] Glucose [Mass/Vol] 74 mg/dL Normal 74 - 99 [facility] Comment on above: Performed By: #### C MP #### [address] [address] HCO3 (Bld) [Moles/Vol] 27 mmol/L Normal 21 - 32 [facility] Comment on above: Performed By: #### C MP #### [address] [address] Potassium [Moles/Vol] 3.8 mmol/L Normal 3.5 - 5.3 [facility] Comment on above: Performed By: #### C MP #### [address] [address] Protein [Mass/Vol] 5.7 g/dL Low 6.4 - 8.2 [facility] Comment on above: Performed By: #### C MP #### [address] [address] Sodium [Moles/Vol] 135 mmol/L Low 136 - 145 [facility] Comment on above: Performed By: #### C MP #### [address] [address] Urea nitrogen [Mass/Vol] 5 mg/dL Low 6 - 23 [facility] Comment on above: Performed By: #### C MP #### [address] [address] LACTATEon 07-12-2022 Lactate [Moles/Vol] 0.5 mmol/L Normal 0.4 - 2.0 [facility] Comment on above: Result Comment: Nilam puncture immediately after or during the administration of Metamizole may lead to falsely low results. Testing should be performed immediately prior to Metamizole dosing. Performed By: #### L ACT #### [address] [address] LIPASEon 07-12-2022 Lipase [Catalytic activity/Vol] 8 U/L Low 9 - 82 [facility] Comment on above: Result Comment: Nilam puncture immediately after or during the administration of Metamizole may lead to falsely low results. Testing should be performed immediately prior to Metamizole dosing. R-cnobxh-i-benzoquinone imine (metabolite of Acetaminophen) will generate erroneously low results in samples for patients that have taken toxic doses of acetaminophen. Performed By: #### L IPAS #### [address] [address] Provider Note - ED v3on 06 Provider [...] home. She was referred back to her MECHANICAL APPRENTICE and - general surgeon for follow up. This chart was dictated with the use of [employer] software within the framework of the current [...] HISTORY: No docume (more content not included)... [facility] Risk Screen - Adult Emergenc [...] instruction; written material Cultural Considerationsnone Developmental Considerationsnone Adventism Considerationsnone Learning Assessment (Other Learner): Learning Assessment [...] an injured patient at a Trauma Center ([facility]/[place]/[facility]/[place]): no Electronic Signatures: Kayla Sullivan (SUPV) (Signed 12-Jul-2022 13:37) Authored: Preferred Language, Patient Preferred Pharmacy, Advanced Directives, Family Violence Adult, Learning Assessment (Patient), Learning Assessment (Other Learner), Pressure Injury/TB/Substance, Pressure Injury, CAGE Last Updated: 12-Jul-2022 13:37 by Kayla Sullivan (SUPV) [facility] Triage - EDon 07-12-2022 Triage [...] (V5) oriented Zoran Score: 15 Allergies: no MECHANICAL APPRENTICE History: Patient has homicidal thoughts: no Symptoms [...] 12-Jul-2022 13:35 by Kayla Sullivan (SUPV) Normal [facility] URINALYSIS WITH CULTURE IF I NDICATEDon 07-12-2022 Appearance (U) HAZY Normal CLEAR [facility] Comment on above: Performed By: #### U ARFX #### [place] [address] Bilirubin Ql (U) Negative Normal NEGATIVE [facility] Comment on above: Performed By: #### U ARFX #### [place] [address] Color (U) Yellow Normal STRAW,YELLOW [facility] Comment on above: Performed By: #### U ARFX #### [place] [address] Glucose Ql (U) Negative Normal NEGATIVE [facility] Comment on above: Performed By: #### U ARFX #### [address] [address] Hemoglobin Ql (U) Negative Normal NEGATIVE [facility] Comment on above: Performed By: #### U ARFX #### [place] [id number] Ketones Ql (U) Negative Normal NEGATIVE [facility] Comment on above: Performed By: #### U ARFX #### [place] [id number] Leukocyte esterase Test strip Ql (U) Negative Normal NEGATIVE [facility] Comment on above: Performed By: #### U ARFX #### [place] [id number] Nitrite Ql (U) Negative Normal NEGATIVE [facility] Comment on above: Performed By: #### U ARFX #### [address] [address] pH (U) 8.0 [pH] Normal 5.0 - 8.0 [facility] Comment on above: Performed By: #### U ARFX #### [address] [address] Protein Ql (U) Negative Normal NEGATIVE [facility] Comment on above: Performed By: #### U ARFX #### [address] [address] Specific gravity (U) [Rel density] 1.014 Normal 1.005 - 1.035 [facility] Comment on above: Performed By: #### U ARFX #### [address] [address] Urobilinogen (U) [Mass/Vol] mg/dL Normal 0.0 - 1.9 [facility] Comment on above: Performed By: #### U ARFX #### [address] [address] US GALLBLADDERon 07-12-2022 US GALLBLADDER STUDY: Right Upper Quadrant Ultrasound; Completed Time: 07/12/2022 15:04 INDICATION: Generalized abdominal pain. Nausea/vomiting. 16 weeks . COMPARISON: None available. ACCESSION NUMBER(S): [id number] ORDERING CLINICIAN: MAURICIO REYES DO TECHNIQUE: Ultrasound [...] DO Electronically signed by: VERNA BURROWS DO [facility] Absolute lymphocyte countOrd ered By: Neelima Dahl on 05-24-2022 Lymphocytes Auto (Unsp spec) [#/Vol] 1.63 10*3/uL 0.83-4.51 [facility] Basophil percentageOrdered B y: Neelima Dahl on 05-24-2022 Basophils/100 WBC (Bld) 0.6 % 0-1 [facility] Eosinophils/100 WBC (Bld) 1.4 % 0-5 [facility] [facility] Neutrophils (Bld) [#/Vol] 2.8 10*3/uL 2.0-7.7 [facility] Neutrophils/100 WBC (Bld) 55.5 % 47-70 [facility] WBC (Bld) [#/Vol] 5.0 10*3/uL 4.4-11.0 [facility] Blood erythrocytes count (nu mber/volume)Ordered By: Neelima Dahl on 05-24-2022 RBC (Bld) [#/Vol] 4.08 10*6/uL 4.2-5.4 [facility] Blood hemoglobin measurement (mass/volume)Ordered By: Neelima Dahl on 05-24-2022 Hemoglobin (Bld) [Mass/Vol] 12.2 g/dL 12.0-15.0 [facility] Blood lymphocytes/100 leukoc ytesOrdered By: Neelima Dahl on 05-24-2022 Lymphocytes/100 WBC (Bld) 32.5 % 19-41 [facility] Blood monocytes/100 leukocyt esOrdered By: Neelima Dahl on 05-24-2022 Monocytes/100 WBC (Bld) 9.8 % 0-10 [facility] Blood platelet mean volumeOr dered By: Neelima Dahl on 05-24-2022 Platelet mean volume (Bld) [Entitic vol] 11.4 fL 6.2-12.0 [facility] C. trachomatis+N. gonorrhoea e DNA SHYAM+probe Ql (Unsp spec)on 05-24-2022 C. trachomatis rRNA SHYAM+probe Ql (Unsp spec) Negative Negative for Chlamydia trachomatis by amplificaton [facility] N. gonorrhoeae rRNA SHYAM+probe Ql (Unsp spec) Negative Negative for Neisseria gonorrhoeae by amplification [facility] Culture, urineOrdered By: Pedro Dahl on 05-24-2022 Bacteria identified Cx Nom (U) Culture exhibits no growth. [facility] Determination of erythrocyte mean corpuscular volume (MCV)Ordered By: Neelima Dahl on 05-24-2022 MCV (RBC) [Entitic vol] 91.2 fL 81-99 [facility] HEP B SURF AG SCRNon 023 HBV surface Ag Ql (S) Non-Reactive C [facility] HEPATITIS C ANTIBODY IA WITH CONFIRMATIONon 05-24-2022 HCV Ab Ql (S) Negative Negative [facility] HIV 1 and HIV-2 antibody ass ay with HIV-1 p24 antigen detectionOrdered By: Neelima Dahl on 05-24-2022 HIV 1+2 Ab+HIV1 p24 Ag IA Ql Non-Reactive [facility] HIV COMBO (AC)on 05-24-2022 HIV Combo Non-Reactive [facility] Hematocrit Auto (Bld) [Volum e fraction]Ordered By: Neelima Dahl on 05-24-2022 Hematocrit (Bld) [Volume fraction] 37.2 % 37-47 [facility] Laboratory - Hematology and Cell countsOrdered By: Neelima Dahl on 05-24-2022 Erythrocyte distribution width (RBC) [Entitic vol] 46.2 fL 35.1-43.9 [facility] Erythrocyte distribution width (RBC) [Ratio] 13.8 % 11.6-14.6 [facility] Immature granulocytes/100 WBC (Bld) 0.200 % 0.0-0.9 [facility] Comment on above: IG% - Immature Granu locytes (promyelocytes, myelocytes and metamyelocytes) > 1% indicates that a LEFT SHIFT is Present. MCH (RBC) [Entitic mass] 29.9 pg 27.0-32.0 [facility] Nucleated RBC/100 WBC (Bld) [Ratio] 0 % 0-5 [facility] MCHC Auto (RBC) [Mass/Vol]Or dered By: Neelima Dahl on 05-24-2022 MCHC (RBC) [Mass/Vol] 32.8 g/dL 32-[address] [facility] No Panel InformationOrdered By: Neelima Dahl on 05-24-2022 Hepatitis B Surface Antigen Non-Reactive Nonreactive [facility] Hepatitis C Antibody Non-Reactive Nonreactive [facility] Comment on above: Non Reactive: < 0.8 Equivocal: >/= 0.8 to < 1.0 Reactive: >/= 1.0The CDC recommends that a reactive/equivocal HCV antibody result be followed up by the HCV Nucleic Acid Amplificationtest ([id number]) Rubella IgG Antibody Reactive Nonreactive [facility] Comment on above: Antibody Results Int erpretation of Immune Status Non Reactive Presumed Non-Immune Equivocal Equivocal Reactive Presumed Immune Platelets bldOrdered By: Curtis Dahl on 05-24-2022 Platelets (Bld) [#/Vol] 249 10*3/uL 150-450 [facility] RUBELLA IGG ABon 05-24-2022 Rubella IgG, Qual Positive Positive [facility] [place] Reagin and Treponema pallidu m IgG and IgM [Interp]on 05-24-2022 Syphilis Screen Result Non-Reactive [facility] Serum Treponema species anti body detectionOrdered By: Neelima Dahl on 05-24-2022 Treponema sp Ab Ql (S) Non-Reactive [facility] Serum Varicella zoster virus IgG antibody assay by immunoassay (units/volume)Ordered By: Neelima Dahl on 05-24-2022 VZV IgG IA Qn (S) 404 index Immune >165 [facility] Comment on above: Negative <135 Equivo hoda 135 - 165 Positive >165A positive result generally indicates exposure to thepathogen or administration of specific immunoglobulins,but it is not indication of active infection or stageof disease.Performed at: [facility] [id number] Director: Rakan Gomez PhD, Phone: [phone] Serum or plasma choriogonado tropin detectionOrdered By: Dr. Dahl on 04-19-2022 HCG ( test) Ql 1067 mIU/mL <4 [facility] Comment on above: hCG levels with Gest ational AgeGestational Age hCG mIU/mL (IU/L)0.2 - 1 week 5 - 501-2 weeks 50 - 5002-3 weeks 100 - 33887-7 weeks 500 - 204146-6 weeks 1000 - 234900-5 weeks 84332 - 100,0006-8 weeks 46217 - 200,0002-3 months 59861 - 100,000 HIV 1 and HIV-2 antibody ass ay with HIV-1 p24 antigen detectionOrdered By: Dr. Dahl on 02-07-2022 HIV 1+2 Ab+HIV1 p24 Ag IA Ql Non-Reactive Nonreactive [facility] Laboratory - Chemistry and C hemistry - challengeOrdered By: Dr. Dahl on 02-07-2022 Free T4 [Mass/Vol] 0.91 ng/dL 0.76-1.46 [facility] No Panel InformationOrdered By: Dr. Dahl on 02-07-2022 Hepatitis A Antibody Total Positive Negative [facility] Comment on above: Performed at: [employer] [address] [id number] Director: Rakan Gomez PhD, Phone: [phone] Hepatitis A IgM Antibody Negative Negative [facility] Hepatitis B Core IgM Antibody Negative Negative [facility] Hepatitis C Antibody (EIA) <0.1 s/co ratio 0.0-0.9 [facility] Hepatitis C Antibody Comment Comment . [facility] Comment on above: NegativeNot infected with HCV, unless recent infection issuspected or other evidence exists to indicate HCVinfection. Thyroid Stimulating Hormone (TSH) 1.76 uIU/mL 0.358-3.74 [facility] Serum Treponema species anti body detectionOrdered By: Dr. Dahl on 02-07-2022 Treponema sp Ab Ql (S) Non-Reactive [facility] Serum hepatitis B virus surf sarita antibody IgG detectionOrdered By: Dr. Dahl on 02-07-2022 HBV surface IgG Ql (S) Non-Reactive [facility] Comment on above: Non Reactive: Incons istent with immunity less than <10 mIU/mL Reactive: Consistent with immunity greater than or equal to 10 mIU/mL Serum or plasma hepatitis B virus surface antigen detection by immunoassayOrdered By: Dr. Dahl on 02-07-2022 HBV surface Ag IA Ql Negative Negative [facility] Serum or plasma prolactin me asurement (mass/volume)Ordered By: Dr. Dahl on 02-07-2022 Prolactin [Mass/Vol] 27.2 ng/mL [facility] Comment on above: NORMAL REFERENCE RAN GES FEMALE NON- 2.2 - 30.3 ng/mL 8.1 - 347.6 ng/mL POST-MENOPAUSAL 0.7 - 31.5 ng/mL MALE 2.5 - 17.4 ng/mL HIV 1 and HIV-2 antibody ass ay with HIV-1 p24 antigen detectionon 12-12-2021 HIV 1+2 Ab+HIV1 p24 Ag IA Ql Non-Reactive Nonreactive [facility] Work Phone: Basophil percentageon 2021 Bilirubin [Mass/Vol] 0.40 mg/dL 0.20-1.00 [facility] Work Phone: Comment on above: For patients on eltr ombopag therapy, use of Dimension [place] TBIL is not recommended. Chloride [Moles/Vol] 108 mmol/L 98-107 [facility] Work Phone: Glucose [Mass/Vol] 65 mg/dL 74-106 [facility] Work Phone: Potassium [Moles/Vol] 4.1 mmol/L 3.5-5.[address] [facility] Work Phone: Protein [Mass/Vol] 6.7 g/dL 6.4-8.2 [facility] Work Phone: Sodium [Moles/Vol] 141 mmol/L 136-145 [facility] Work Phone: WBC (Bld) [#/Vol] 6.5 10*3/uL 4.4-11.0 [facility] Work Phone: Blood erythrocytes count (nu mber/volume)on 12-01-2021 RBC (Bld) [#/Vol] 4.09 10*6/uL 4.2-5.4 [facility] Work Phone: Blood hemoglobin measurement (mass/volume)on 12-01-2021 Hemoglobin (Bld) [Mass/Vol] 13.0 g/dL 12.0-15.0 [facility] Work Phone: Blood platelet mean volumeon 12-01-2021 Platelet mean volume (Bld) [Entitic vol] 12.0 fL 6.2-12.0 [facility] Work Phone: Determination of erythrocyte mean corpuscular volume (MCV)on 12-01-2021 MCV (RBC) [Entitic vol] 94.1 fL 81-99 [facility] Work Phone: [phone] Hematocrit Auto (Bld) [Volum e fraction]on 12-01-2021 Hematocrit (Bld) [Volume fraction] 38.5 % 37-47 [facility] Work Phone: Iron measurement (mass/mass) on 12-01-2021 Iron (Unsp spec) [Mass/Mass] 28 ug/dL 50-170 [facility] Work Phone: Laboratory - Chemistry and C hemistry - challengeon 12-01-2021 ALP [Catalytic activity/Vol] 51 U/L 45-117 [facility] Work Phone: ALT [Catalytic activity/Vol] 21 U/L 13-56 [facility] Work Phone: [phone] CO2 [Moles/Vol] 28.0 mmol/L 21.0-32.0 [facility] Work Phone: Globulin (S) [Mass/Vol] 3.2 g/dL 2.2-4.2 [facility] Work Phone: [phone] Urea nitrogen/Creatinine [Mass ratio] 10.5 mg/mg 10-20 [facility] Work Phone: [phone] Laboratory - Hematology and Cell countson 12-01-2021 Erythrocyte distribution width (RBC) [Entitic vol] 45.0 fL 35.1-43.9 [facility] Work Phone: Erythrocyte distribution width (RBC) [Ratio] 13.1 % 11.6-14.6 [facility] Work Phone: MCH (RBC) [Entitic mass] 31.8 pg 27.0-32.0 [facility] Work Phone: MCHC Auto (RBC) [Mass/Vol]on 12-01-2021 MCHC (RBC) [Mass/Vol] 33.8 g/dL 32-36 [facility] Work Phone: No Panel Informationon 12-01 Estimated GFR (MDRD) Amer 147 mL/min >60 [facility] Work Phone: Comment on above: GFR Calc Estimated GFR (MDRD) Non-Af Amer 121 mL/min >60 [facility] Work Phone: Comment on above: Non- GFR Calc Thyroid Stimulating Hormone (TSH) 0.83 uIU/mL 0.358-3.74 [facility] Work Phone: Total Iron Binding Capacity 339 ug/dL 250-450 [facility] Work Phone: [phone] Vitamin D 25-Hydroxy 30.6 ng/mL [facility] Work Phone: Comment on above: Vitamin D 25(OH) Sta tus Range Deficiency <20 ng/mL (50nmol/L) Insufficiency 20 - 30 ng/mL (50 - 75 nmol/L) Sufficiency 30 - 100 ng/mL (75 - 250 nmol/L) Toxicity >100 ng/mL (>250 nmol/L) Platelets bldon 12-01-2021 Platelets (Bld) [#/Vol] 213 10*3/uL 150-450 [facility] Work Phone: [phone] Serum or plasma albumin reynaldo urement (mass/volume)on 12-01-2021 Albumin [Mass/Vol] 3.5 g/dL 3.2-5.0 [facility] Work Phone: [phone] Serum or plasma albumin/glob ulin mass ratioon 12-01-2021 Albumin/Globulin [Mass ratio] 1.1 {ratio} 0.9-2.4 [facility] Work Phone: [phone] Serum or plasma calcium reynaldo urement (mass/volume)on 12-01-2021 Calcium [Mass/Vol] 8.8 mg/dL 8.5-10.1 [facility] Work Phone: [phone] Serum or plasma creatinine m easurement (mass/volume)on 12-01-2021 Creatinine [Mass/Vol] 0.67 mg/dL 0.55-1.[address] [facility] Work Phone: Comment on above: The validity of the calculated GFR & GFRAA in patients over 70 years has not been determined. Clinical correlation is essential. Serum or plasma ferritin jose raul surement (mass/volume)on 12-01-2021 Ferritin [Mass/Vol] 34 ng/mL 8-252 [facility] Work Phone: Serum or plasma urea nitroge n measurement (mass/volume)on 12-01-2021 Urea nitrogen [Mass/Vol] 7 mg/dL 7-18 [facility] Work Phone: Thin prep Papanicolaou smear with manual screeningon 12-01-2021 Thin prep Papanicolaou smear with manual screening 11 U/L 15-37 [facility] Work Phone: Thin prep Papanicolaou smear with manual screening 5 5-15 [facility] Work Phone: Whole blood hemoglobin A1c/t otal hemoglobin ratio (mass fraction)on 12-01-2021 HbA1c (Bld) [Mass fraction] 5.1 % 3.8-5.6 [facility] Work Phone: Comment on above: Normal < 5.7 % Predi abetic 5.7 - 6.4 % Diabetic >or= 6.5 % Please note range changes. UA DIP, URINE (POC)on 2021 BILIRUBIN UA (POCT) Negative Negative [facility] CLARITY UA (POCT) Clear [facility] [place] COLOR UA (POCT) Yellow [facility] GLUCOSE UA (POCT) Negative Negative mg/dL [facility] HEMOGLOBIN/BLOOD UA (POCT) Negative Negative [facility] KETONE UA (POCT) Negative Negative mg/dL [facility] LEUKOCYTES UA (POCT) Negative Negative [facility] NITRITE UA (POCT) Negative Negative [facility] PH UA (POCT) 6.5 4.5 - 8.0 [facility] Protein Ql (U) 30 mg/dL Abnormal Negative mg/dL [facility] SPECIFIC GRAVITY UA (POCT) 1.020 1.005 - 1.030 [facility] UROBILINOGEN UA (POCT) 0.2 E.U./dL Normal E.U./ dL [facility] Absolute lymphocyte counton 10-31-2021 Lymphocytes Auto (Unsp spec) [#/Vol] 2.34 10*3/uL 0.83-4.51 [facility] Work Phone: Basophil percentageon 2021 Basophils/100 WBC (Bld) 0.3 % 0-1 [facility] Work Phone: Bilirubin [Mass/Vol] 0.50 mg/dL 0.20-1.00 [facility] Work Phone: Comment on above: For patients on eltr ombopag therapy, use of Dimension [place] TBIL is not recommended. Chloride [Moles/Vol] 105 mmol/L 98-107 [facility] Work Phone: Eosinophils/100 WBC (Bld) 1.0 % 0-5 [facility] Work Phone: Glucose [Mass/Vol] 66 mg/dL 74-106 [facility] Work Phone: Neutrophils (Bld) [#/Vol] 3.7 10*3/uL 2.0-7.7 [facility] Work Phone: Neutrophils/100 WBC (Bld) 56.1 % 47-70 [facility] Work Phone: Potassium [Moles/Vol] 3.4 mmol/L 3.5-5.[address] [facility] Work Phone: Protein [Mass/Vol] 7.2 g/dL 6.4-8.2 [facility] Work Phone: Sodium [Moles/Vol] 139 mmol/L 136-145 [facility] Work Phone: WBC (Bld) [#/Vol] 6.7 10*3/uL 4.4-11.0 [facility] Work Phone: Blood erythrocytes count (nu mber/volume)on 10-31-2021 RBC (Bld) [#/Vol] 4.48 10*6/uL 4.2-5.4 [facility]: Blood hemoglobin measurement (mass/volume)on 10-31-2021 Hemoglobin (Bld) [Mass/Vol] 14.0 g/dL 12.0-15.0 [facility] Work Phone: Blood lymphocytes/100 leukoc yteson 10-31-2021 Lymphocytes/100 WBC (Bld) 35.1 % 19-41 [facility] Work Phone: Blood monocytes/100 leukocyt eson 10-31-2021 Monocytes/100 WBC (Bld) 7.2 % 0-10 [facility] Work Phone: Blood platelet mean volumeon 10-31-2021 Platelet mean volume (Bld) [Entitic vol] 12.4 fL 6.2-12.0 [facility] Work Phone: Chlamydia trachomatis rRNA d etection by probe and target amplification methodon 10-31-2021 C. trachomatis rRNA SHYAM+probe Ql (Unsp spec) Negative Negative [facility] Work Phone: Determination of erythrocyte mean corpuscular volume (MCV)on 10-31-2021 MCV (RBC) [Entitic vol] 94.9 fL 81-99 [facility] Work Phone: Hematocrit Auto (Bld) [Volum e fraction]on 10-31-2021 Hematocrit (Bld) [Volume fraction] 42.5 % 37-47 [facility] Work Phone: Laboratory - Chemistry and C hemistry - challengeon 10-31-2021 ALP [Catalytic activity/Vol] 47 U/L 45-117 [facility] Work Phone: ALT [Catalytic activity/Vol] 22 U/L 13-56 [facility] Work Phone: CO2 [Moles/Vol] 27.0 mmol/L 21.0-32.0 [facility] Work Phone: Free T4 [Mass/Vol] 0.92 ng/dL 0.76-1.46 [facility] Work [phone] Globulin (S) [Mass/Vol] 3.3 g/dL 2.2-4.2 [facility] Work Phone: [phone] Urea nitrogen/Creatinine [Mass ratio] 10.3 mg/mg 10-20 [facility] Work Phone: [phone] Laboratory - Hematology and Cell countson 10-31-2021 Erythrocyte distribution width (RBC) [Entitic vol] 44.2 fL 35.1-43.9 [facility] Work Phone: [phone] Erythrocyte distribution width (RBC) [Ratio] 12.6 % 11.6-14.6 [facility] Work Phone: [phone] Immature granulocytes/100 WBC (Bld) 0.300 % 0.0-0.9 [facility] Work Phone: [phone] Comment on above: IG% - Immature Granu locytes (promyelocytes, myelocytes and metamyelocytes) > 1% indicates that a LEFT SHIFT is Present. MCH (RBC) [Entitic mass] 31.3 pg 27.0-32.0 [facility] Work Phone: [phone] Nucleated RBC/100 WBC (Bld) [Ratio] 0 % 0-5 [facility] Work Phone: [phone] Laboratory - Microbiology an d Antimicrobial susceptibilityon 10-31-2021 N. gonorrhoeae DNA SHYAM+probe Ql (Unsp spec) Negative Negative [facility] Work Phone: [phone] Comment on above: Performed at: =[facility] [id number] Director: Romy Mcarthur MD, Phone: [phone] MCHC Auto (RBC) [Mass/Vol]on 10-31-2021 MCHC (RBC) [Mass/Vol] 32.9 g/dL 32-[address] [facility] Work Phone: [phone] No Panel Informationon 10-31 Estimated GFR (MDRD) Amer 143 mL/min >60 [facility] Work Phone: [phone] Comment on above: GFR Calc Estimated GFR (MDRD) Non-Af Amer 118 mL/min >60 [facility] Work Phone: Comment on above: Non- GFR Calc Follicle Stimulating Hormone 3.2 mIU/mL [facility] Work Phone: Comment on above: NORMAL REFERENCE RAN GES FEMALE FOLLICULAR 2.3 - 12.6 mIU/mL MID-CYCLE PEAK 5.2 - 17.5 mIU/mL LUTEAL 1.7 - 12.9 mIU/mL POST-MENOPAUSAL ON MHT 5.9 - 72.8 mIU/mL NOT ON MHT 12.7 - 132.2 mlU/mL MALE 0.7 - 10.8 mIU/mL Luteinizing Hormone 2.2 mIU/mL [facility] Work Phone: Comment on above: NORMAL REFERENCE RAN GES FEMALE FOLLICULAR 1.9 - 26.2 mIU/mL MID-CYCLE PEAK 22.8 - 76.1 mIU/mL LUTEAL 0.6 - 16.6 mIU/mL POST-MENOPAUSAL ON MHT 1.1 - 52.4 mIU/mL NOT ON MHT 8.6 - 61.8 mIU/mL MALE 1.2 - 10.6 mIU/mL Thyroid Stimulating Hormone (TSH) 0.94 uIU/mL 0.358-3.74 [facility] Work Phone: Platelets bldon 10-31-2021 Platelets (Bld) [#/Vol] 206 10*3/uL 150-450 [facility] Work Phone: Serum or plasma albumin reynaldo urement (mass/volume)on 10-31-2021 Albumin [Mass/Vol] 3.9 g/dL 3.2-5.0 [facility] Work Phone: Serum or plasma albumin/glob ulin mass ratioon 10-31-2021 Albumin/Globulin [Mass ratio] 1.2 {ratio} 0.9-2.4 [facility] Work Phone: Serum or plasma calcium reynaldo urement (mass/volume)on 10-31-2021 Calcium [Mass/Vol] 8.4 mg/dL 8.5-10.1 [facility] Work Phone: Serum or plasma choriogonado tropin detectionon 10-31-2021 HCG ( test) Ql < 1 mIU/mL <4 [facility] Work Phone: Comment on above: hCG levels with Gest ational AgeGestational Age hCG mIU/mL (IU/L)0.2 - 1 week 5 - 501-2 weeks 50 - 5002-3 weeks 100 - 35114-7 weeks 500 - 823589-9 weeks 1000 - 014340-4 weeks 86477 - 100,0006-8 weeks 27161 - 200,0002-3 months 41332 - 100,000 Serum or plasma creatinine m easurement (mass/volume)on 10-31-2021 Creatinine [Mass/Vol] 0.68 mg/dL 0.55-1.[address] [facility] Work Phone: Comment on above: The validity of the calculated GFR & GFRAA in patients over 70 years has not been determined. Clinical correlation is essential. Serum or plasma prolactin me asurement (mass/volume)on 10-31-2021 Prolactin [Mass/Vol] 16.7 ng/mL [facility] Work Phone: Comment on above: NORMAL REFERENCE RAN GES FEMALE NON- 2.2 - 30.3 ng/mL 8.1 - 347.6 ng/mL POST-MENOPAUSAL 0.7 - 31.5 ng/mL MALE 2.5 - 17.4 ng/mL Serum or plasma urea nitroge n measurement (mass/volume)on 10-31-2021 Urea nitrogen [Mass/Vol] 7 mg/dL 7-18 [facility] Work Phone: Thin prep Papanicolaou smear with manual screeningon 10-31-2021 Thin prep Papanicolaou smear with manual screening 13 U/L 15-37 [facility] Work Phone: Thin prep Papanicolaou smear with manual screening 7 5-15 [facility] Work Phone: HCG QUAL UR B/Oon 08-14-2021 status Negative neg - [facility] Quality [facility] Yes [facility] UA DIP, URINE (POC)on 2021 BILIRUBIN UA (POCT) Negative Negative [facility] CLARITY UA (POCT) Cloudy [facility] [place] COLOR UA (POCT) Yellow [facility] GLUCOSE UA (POCT) Negative Negative mg/dL [facility] HEMOGLOBIN/BLOOD UA (POCT) Negative Negative [facility] KETONE UA (POCT) Trace Negative mg/[facility] LEUK[facility]TES [facility]A (POCT) Negative Negative [facility] NITRITE UA (POCT) Negative Negative [facility] PH UA (POCT) 7.0 4.5 - 8.0 [facility] Protein Ql (U) Negative Negative mg/dL [facility] SPECIFIC GRAVITY UA (POCT) 1.020 1.005 - 1.030 [facility] UROBILINOGEN UA (POCT) 1.0 E.U./dL Normal E.U./ dL [facility] Serum or plasma choriogonado tropin detectionon 05-17-2021 HCG ( test) Ql 4 mIU/mL <4 [facility] Work Phone: Comment on above: hCG levels with Gest ational AgeGestational Age hCG mIU/mL (IU/L)0.2 - 1 week 5 - 501-2 weeks 50 - 5002-3 weeks 100 - 52370-6 weeks 500 - 914004-2 weeks 1000 - 343859-0 weeks 84003 - 100,0006-8 weeks 50813 - 200,0002-3 months 89355 - 100,000 Basic Panelon 07-19-2019 Anion gap [Moles/Vol] 11 mmol/L Normal 9-18 [facility] Comment on above: Performed By: #### L LP8 #### [address] [address] Calcium [Mass/Vol] 9.2 mg/dL Normal 8.4-10.2 [facility] Comment on above: Performed By: #### L LP8 #### [facility] [address] [place], [place] [address] Chloride [Moles/Vol] 98 mmol/L Normal 97-105 [facility] Comment on above: Result Comment: Refe rence ranges for this patient`s age group have not been established. These reference ranges reflect verified or established ranges for the adult population. Interpret ranges with caution using the clinical context and additional reference resources. Performed By: #### L LP8 #### [facility] [address] [place], [place] [address] CO2 Blood 25 mmol/L Normal 22-30 [facility] Comment on above: Result Comment: Refe rence ranges for this patient`s age group have not been established. These reference ranges reflect verified or established ranges for the adult population. Interpret ranges with caution using the clinical context and additional reference resources. Performed By: #### L LP8 #### [facility] [address] [place], [place] [address] Creatinine [Mass/Vol] 0.81 mg/dL Normal 0.58-0.96 [facility] Comment on above: Result Comment: Refe rence ranges for this patient`s age group have not been established. These reference ranges reflect verified or established ranges for the adult population. Interpret ranges with caution using the clinical context and additional reference resources. Performed By: #### L LP8 #### [facility] [address] [place], [place] [address] Glucose [Mass/Vol] 120 mg/dL High 74-99 [facility] Comment on above: Result Comment: Refe rence ranges for this patient`s age group have not been established. These reference ranges reflect verified or established ranges for the adult population. Interpret ranges with caution using the clinical context and additional reference resources. The [place] [employer] (ADA) provides guidance for cutoff [...] Standards of Medical Care in Diabetes 2016; [place] [employer]. Diabetes Care. 2016;39(Suppl 1). Performed By: #### L LP8 #### [facility] [address] [place], [place] [address] Potassium [Moles/Vol] 3.7 mmol/L Normal 3.7-5.1 [facility] Comment on above: Result Comment: Refe rence ranges for this patient`s age group have not been established. These reference ranges reflect verified or established ranges for the adult population. Interpret ranges with caution using the clinical context and additional reference resources. Performed By: #### L LP8 #### [facility] [address] [place], [place] [address] Sodium [Moles/Vol] 134 mmol/L Low 136-144 [facility] Comment on above: Result Comment: Refe rence ranges for this patient`s age group have not been established. These reference ranges reflect verified or established ranges for the adult population. Interpret ranges with caution using the clinical context and additional reference resources. Performed By: #### L LP8 #### [facility] [address] [place], [place] [address] Urea nitrogen [Mass/Vol] 11 mg/dL Normal 5-18 [facility] Comment on above: Performed By: #### L LP8 #### [address] [address] Cult Urineon 07-19-2019 Cult Urine Test performed at [facility] ORGANISM: *Escherichia coli (ID: 1) >100,000 CFU/ml CLSI breakpoints for therapy of uncomplicated UTI due to E. coli, K. pneumoniae or P. mirabilis were applied and may be used to predict the activity of oral agents (cefdinir, cefpodoxime, cefuroxime, and cephalexin). Normal [facility] Comment on above: Performed By: #### C _URI #### [facility] [address] [place], [place] [address] HCG, Total for ED Useon HCG Qn m[IU]/mL Normal < 5.0 [facility] Comment on above: Result Comment: Gema [...] result. Performed By: #### L EHCG #### [facility] [address] [place] [address] Hemogramon 07-19-2019 Erythrocyte distribution width (RBC) [Ratio] 14.2 % Normal 11.5-15.0 [facility] Comment on above: Performed By: #### L CBC #### [facility] [address] [place] [address] Hematocrit (Bld) [Volume fraction] 44.1 % Normal 36.0-46.0 [facility] Comment on above: Performed By: #### L CBC #### [place] [address] Hemoglobin (Bld) [Mass/Vol] 14.4 g/dL Normal 11.5-15.5 [facility] Comment on above: Performed By: #### L CBC #### [place] [address] MCH (RBC) [Entitic mass] 29.6 pg Normal 26.0-34.0 [facility] Comment on above: Performed By: #### L CBC #### [place] [address] MCHC (RBC) [Mass/Vol] 32.7 % Normal 30.5-36.0 [facility] Comment on above: Performed By: #### L CBC #### [place] [address] MCV (RBC) [Entitic vol] 90.7 fL Normal 80.0-100.0 [facility] Comment on above: Performed By: #### L CBC #### [place] [address] Platelet mean volume (Bld) [Entitic vol] 12.5 fL Normal 9.0-12.7 [facility] Comment on above: Performed By: #### L CBC #### [place] [address] Platelets (Bld) [#/Vol] 129 thou/cmm Low 150-400 [facility] Comment on above: Performed By: #### L CBC #### [facility] [address] [place] [address] RBC (Bld) [#/Vol] 4.86 mil/cmm Normal 3.90-5.20 [facility] Comment on above: Performed By: #### L CBC #### [place] [address] WBC (Bld) [#/Vol] 10.8 thou/cmm Normal 3.7-11.0 [facility] Comment on above: Performed By: #### L CBC #### [place] [address] Urinalysis Routineon 020 Appearance (U) 3+ (CLOUDY) Normal [facility] Comment on above: Performed By: #### L URIN #### [place] [address] Bacteria LM.HPF (Urine sed) [#/Area] MODERATE Abnormal None [facility] Comment on above: Performed By: #### L URIN #### [place] [address] Bilirubin Urine see below Normal Negative [facility] Comment on above: Result Comment: Dete cted (Unable to confirm). Performed By: #### L URIN #### [place] [address] Color (U) YELLOW Normal [facility] Comment on above: Performed By: #### L URIN #### [place] [address] Ep Cells Urine 2-5 Normal 0-5 [facility] Comment on above: Performed By: #### L URIN #### [place] [address] Glucose Ql (U) Negative Normal Negative [facility] Comment on above: Performed By: #### L URIN #### [place] [address] Hemoglobin,Urine 2+ Abnormal Negative [facility] Comment on above: Performed By: #### L URIN #### [facility] [address] [place] [address] Ketone Urine 3+ Abnormal Negative [facility] Comment on above: Performed By: #### L URIN #### [facility] [address] [place] [address] Leukocytes Esterase 1+ Abnormal Negative [facility] Comment on above: Performed By: #### L URIN #### [facility] [address] [place] [address] Mucus Threads FEW Normal None [facility] Comment on above: Performed By: #### L URIN #### [facility] [address] [place] [address] Nitrites Urine Positive Abnormal Negative [facility] Comment on above: Performed By: #### L URIN #### [place] [address] pH (U) 6.0 [pH] Normal 5.0-8.0 [facility] Comment on above: Performed By: #### L URIN #### [place] [address] Protein (U) [Mass/Vol] 3+ Abnormal Negative [facility] Comment on above: Performed By: #### L URIN #### [place] [address] RBC LM.HPF (Urine sed) [#/Area] 7-12 Abnormal 0-3 [facility] Comment on above: Performed By: #### L URIN #### [place] [address] Specific [place], Ur 1.020 Normal 1.005-1.030 [facility] Comment on above: Performed By: #### L URIN #### [place] [address] Urobilinogen,Ur 2.0 EU/dL High 0.2-1.0 [facility] Comment on above: Performed By: #### L URIN #### [place] [address] WBC LM.HPF (Urine sed) [#/Area] 21-35 Abnormal 0-5 [facility] Comment on above: Performed By: #### L URIN #### [facility] [address] [place] [address] PROGRESSon 08-07-2017 [facility] NOTES Normal [facility] CHLAM/GC AMPLIFon 07-31-2017 CHLAMYDIA NUC. AMP Negative Normal Negative [facility] GONOCOCCUS NUC. AMP Negative Normal Negative [facility] Comment on above: Result Comment: PERF ORMED AT [facility] PROGRESSon 07-30-2017 [facility] NOTES Normal [facility] PROGRESSon 07-29-2017 [facility] NOTES Normal [facility] TRICH VAG BY NAAon 8 TRICH VAG BY SHYAM Negative Normal Negative [facility] Comment on above: Result Comment: PERF ORMED AT [facility] Addendumon 07-24-2017 [facility] HIM CAC NOTES Normal [facility] FIBRONECTINon 07-25-19 18 FIBRONECTIN Negative Normal NEGATIVE [facility] Comment on above: Result Comment: NO F ETAL FIBRONECTIN DETECTED.Testing performed at [place] [address] Performed By: #### F FN ####[place] [address] PROGRESSon 07-24-2017 [facility] NOTES Normal [facility] STREP SCREEN GRP Bon 018 STREP SCREEN GRP B SPECIMEN DESCRIPTION VAGINAL SPECIMEN * Result Note: REC * CULTURE NO GROUP B BETA STREP ISOLATED * Result Note: Testing performed at [place] [address] * REPORT STATUS 07/26/2017 * Result Note: FINAL * Normal [facility] Comment on above: Performed By: #### O BSC ####[place] [address] CBCon 07-11-2017 Basophils/100 WBC Auto (Bld) 0 % Normal 0.0-2.0 [facility] Comment on above: Performed By: #### A CBC ####[place] [address] DTYPE AUTO DIFF RESULTS VERIFIED BY SCAN Normal [facility] Comment on above: Performed By: #### A CBC ####Testing performed at [place] [id number] Eosinophils/100 leukocytes 1 % Normal 0.0-11.0 [facility] Comment on above: Performed By: #### A CBC ####[place] [address] Erythrocyte morphology 1+ Normal [facility] Comment on above: Result Comment: POLY CHROMIA1+ANISOCYTE Performed By: #### A CBC ####[place] [address] Lymphocytes/100 leukocytes 18 % Low 20.0-55.0 [facility] Comment on above: Performed By: #### A CBC ####[place] [address] Monocytes/100 leukocytes 10 % Normal 0.0-10.0 [facility] Comment on above: Performed By: #### A CBC ####[place] [address] Neutrophils/100 leukocytes 71 % Normal 37.0-75.0 [facility] Comment on above: Performed By: #### A CBC ####Testing performed at [place] [id number] PLATELET COMMENT GIANT PLTS Normal [facility] Comment on above: Result Comment: ADEQ UATETesting performed at [place] [address] Performed By: #### A CBC ####[place] [address] WBC MORPHOLOGY <10% BANDS PRESENT Normal [facility] Comment on above: Performed By: #### A CBC ####[place] [address] Erythrocyte distribution width Auto Ratio (RBC) 14.6 % High 11.5-14.5 [facility] Comment on above: Performed By: #### A CBC ####[place] [address] Erythrocytes (RBC) 3.72 /cmm Low 4.0-5.4 [facility] Comment on above: Performed By: #### A CBC ####[place] [address] Hematocrit (HCT) 33.8 % Low 36.0-48.0 [facility] Comment on above: Performed By: #### A CBC ####[place] [address] Hemoglobin mass conc (Bld) 11.5 g/dL Low 12.0-16.0 [facility] Comment on above: Performed By: #### A CBC ####[place] [address] MCH 30.9 pg Normal 26.0-35.0 [facility] Comment on above: Performed By: #### A CBC ####[place] [address] MCHC mass conc (RBC) 34.0 g/dL Normal 27.0-37.0 [facility] Comment on above: Performed By: #### A CBC ####[place] [address] MCV 91.0 fL Normal 80.0-100.0 [facility] Comment on above: Performed By: #### A CBC ####[place] [address] Platelet mean volume (PMV) 10.2 fL Normal 7.4-11.0 [facility] Comment on above: Result Comment: Test ing performed at [place] [address] Performed By: #### A CBC ####[place] [address] Platelets 141 /cmm Normal 130.0-400.0 [facility] Comment on above: Performed By: #### A CBC ####[place] [address] WBC (Leukocytes) 7.8 /cmm Normal 3.6-13.0 [facility] Comment on above: Performed By: #### A CBC ####[place] [address] PROGRESSon 07-10-2017 [facility] NOTES Normal [facility] BMP FASTINGon 07-01-2017 Anion gap 11 mmol/L Normal 8-16 [facility] Comment on above: Performed By: #### A CBC, BMPF, MG ####[place] [address] BUN (urea nitrogen) 6 mg/dL Low 7-20 [facility] Comment on above: Performed By: #### A CBC, BMPF, MG ####[place] [address] Calcium 8.5 mg/dL Low 9.2-10.7 [facility] Comment on above: Performed By: #### A CBC, BMPF, MG ####[place] [address] Chloride 103 mmol/L Normal 98-107 [facility] Comment on above: Performed By: #### A CBC, BMPF, MG ####[place] [address] CO2 24 mmol/L Normal 22-30 [facility] Comment on above: Performed By: #### A CBC, BMPF, MG ####[place] [address] Creatinine 0.4 mg/dL Low 0.6-1.2 [facility] Comment on above: Performed By: #### A CBC, BMPF, MG ####[place] [address] eGFR (non-black) Unable to calculate GFR due to inappropriate age/gender/creatinin e value. Normal [facility] Comment on above: Result Comment: Test ing performed at [place] [address] Performed By: #### A CBC, BMPF, MG ####[place] [address] Glucose mass conc 129 mg/dL High 70-100 [facility] Comment on above: Result Comment: NORM AL <100 mg/dLPREDIABETES 101-126 mg/dLDIABETES 126 mg/dL or higher Performed By: #### A CBC, BMPF, MG ####[place] [address] Potassium molar conc 3.7 mmol/L Normal 3.5-5.1 [facility] Comment on above: Performed By: #### A CBC, BMPF, MG ####[place] [address] Sodium 138 mmol/L Normal 137-145 [facility] Comment on above: Performed By: #### A CBC, BMPF, MG ####[place] [address] CBCon 07-01-2017 ABSOLUTE BAS 0.0 X10 Normal [facility] Comment on above: Result Comment: Test ing performed at [place] [address] Performed By: #### A URNC ####[place] [address] ABSOLUTE EOS 0.00 X10 Normal [facility] Comment on above: Performed By: #### A URNC ####[place] [address] Basophils/100 WBC Auto (Bld) 0.3 % Normal 0.0-2.0 [facility] Comment on above: Performed By: #### A URNC ####[place] [address] DTYPE AUTO DIFF Normal [facility] Comment on above: Performed By: #### A URNC ####[place] [address] Eosinophils/100 leukocytes 0.2 % Normal 0.0-11.0 [facility] Comment on above: Performed By: #### A URNC ####Testing performed at [address] [address] Lymphocytes 1.20 X10 Normal [facility] Comment on above: Performed By: #### A URNC ####Testing performed at [address] [address] Lymphocytes/100 leukocytes 13.1 % Low 20.0-55.0 [facility] Comment on above: Performed By: #### A URNC ####Testing performed at [address] [address] Monocytes 0.8 X10 Normal [facility] Comment on above: Performed By: #### A URNC ####Testing performed at [address] [address] Monocytes/100 leukocytes 9.4 % Normal 0.0-10.0 [facility] Comment on above: Performed By: #### A URNC ####Testing performed at [address] [address] Neutrophils 6.8 x10 Normal 1.0-7.0 [facility] Comment on above: Performed By: #### A URNC ####Testing performed at [address] [address] Neutrophils/100 leukocytes 77.0 % High 37.0-75.0 [facility] Comment on above: Performed By: #### A URNC ####Testing performed at [address] [address] Erythrocyte distribution width Auto Ratio (RBC) 14.1 % Normal 11.5-14.5 [facility] Comment on above: Performed By: #### A URNC ####Testing performed at [address] [address] Erythrocytes (RBC) 3.35 /cmm Low 4.0-5.4 [facility] Comment on above: Performed By: #### A URNC ####Testing performed at [address] [address] Hematocrit (HCT) 30.6 % Low 36.0-48.0 [facility] Comment on above: Performed By: #### A URNC ####[place] [address] Hemoglobin mass conc (Bld) 10.5 g/dL Low 12.0-16.0 [facility] Comment on above: Performed By: #### A URNC ####[place] [address] MCH 31.3 pg Normal 26.0-35.0 [facility] Comment on above: Performed By: #### A URNC ####[place] [address] MCHC mass conc (RBC) 34.3 g/dL Normal 27.0-37.0 [facility] Comment on above: Performed By: #### A URNC ####[place] [address] MCV 91.4 fL Normal 80.0-100.0 [facility] Comment on above: Performed By: #### A URNC ####[place] [address] Platelet mean volume (PMV) 10.0 fL Normal 7.4-11.0 [facility] Comment on above: Result Comment: Test ing performed at [place] [address] Performed By: #### A URNC ####[place] [address] Platelets 134 /cmm Normal 130.0-400.0 [facility] Comment on above: Performed By: #### A URNC ####[place] [address] WBC (Leukocytes) 8.9 /cmm Normal 3.6-13.0 [facility] Comment on above: Performed By: #### A URNC ####[place] [address] MAGNESIUMon 07-01-2017 Magnesium 1.5 mg/dL Low 1.6-2.3 [facility] Comment on above: Result Comment: Test ing performed at [place] [address] Performed By: #### A CBC, BMPF, MG ####[place] [address] NURSING NOTEon 07-01-2017 [facility] NOTES Normal [facility] NOT[facility] Normal [facility] NOTES Normal [facility] NOT[facility] Normal [facility] NOT[facility] Normal [facility] NOT[facility] Normal [facility] NOT[facility] Normal [facility] NOT[facility] Normal [facility] NOT[facility] Normal [facility] NOT[facility] Normal [facility] NOT[facility] Normal [facility] RAPID TOX SCREEN,URINE WITH REFLEXon 07-01-2017 AMPHETAMINE Negative Normal NEGATIVE [facility] Comment on above: Result Comment: <500 ng/ml CUTOFF Performed By: #### A URNC ####[place] [address] BARBITURATES Negative Normal NEGATIVE [facility] Comment on above: Result Comment: <200 ng/ml CUTOFF Performed By: #### A URNC ####[place] [address] BUPRENORPHINE Negative Normal NEGATIVE [facility] Comment on above: Result Comment: <10 ng/ml CUTOFFTesting performed at [place] [address] Performed By: #### A URNC ####[place] [address] METHAMPHETAMINE Negative Normal NEGATIVE [facility] Comment on above: Result Comment: <500 ng/ml CUTOFF Performed By: #### A URNC ####[place] [address] OXYCODONE Negative Normal NEGATIVE [facility] Comment on above: Result Comment: <100 ng/ml CUTOFF Performed By: #### A URNC ####[place] [address] PROPOXYPHENE Negative Normal NEGATIVE [facility] Comment on above: Result Comment: <300 ng/ml CUTOFF Performed By: #### A URNC ####[place] [address] Urine, benzodiazepines presence Negative Normal NEGATIVE [facility] Comment on above: Result Comment: <150 ng/ml CUTOFF Performed By: #### A URNC ####[place] [address] Urine, cannabinoids presence Negative Normal NEGATIVE [facility] Comment on above: Result Comment: <50 ng/ml CUTOFF Performed By: #### A URNC ####[place] [address] Urine, cocaine presence Negative Normal NEGATIVE [facility] Comment on above: Result Comment: <150 ng/ml CUTOFF Performed By: #### A URNC ####[place] [address] Urine, methadone presence Negative Normal NEGATIVE [facility] Comment on above: Result Comment: <200 ng/ml CUTOFF Performed By: #### A URNC ####[place] [address] Urine, opiates presence Negative Normal NEGATIVE [facility] Comment on above: Result Comment: <100 ng/ml CUTOFF Performed By: #### A URNC ####[place] [address] Urine, phencyclidine presence Negative Normal NEGATIVE [facility] Comment on above: Result Comment: <25 ng/ml CUTOFF Performed By: #### A URNC ####[place] [address] Urine, tricyclic antidepressants Negative Normal NEGATIVE [facility] Comment on above: Result Comment: <300 ng/ml CUTOFF Performed By: #### A URNC ####[place] [address] CBCon 06-19-2017 Basophils/100 WBC Auto (Bld) 0 % Normal 0.0-2.0 [facility] Comment on above: Performed By: #### U HCGT, UMAC, UMIC ####[place] [address] DTYPE AUTO DIFF Normal [facility] Comment on above: Result Comment: AUTO DIFF RESULTS VERIFIED BY SCAN Performed By: #### U HCGT, UMAC, UMIC ####[place] [address] Eosinophils/100 leukocytes 1 % Normal 0.0-11.0 [facility] Comment on above: Performed By: #### U HCGT, UMAC, UMIC ####[place] [address] Erythrocyte morphology NORMAL Normal [facility] Comment on above: Performed By: #### U HCGT, UMAC, UMIC ####[place] [address] Lymphocytes/100 leukocytes 20 % Normal 20.0-55.0 [facility] Comment on above: Performed By: #### U HCGT, UMAC, UMIC ####[place] [address] Monocytes/100 leukocytes 9 % Normal 0.0-10.0 [facility] Comment on above: Performed By: #### U HCGT, UMAC, UMIC ####[place] [address] Neutrophils/100 leukocytes 70 % Normal 37.0-75.0 [facility] Comment on above: Performed By: #### U HCGT, UMAC, UMIC ####[place] [address] PLATELET COMMENT GIANT PLTS Normal [facility] Comment on above: Result Comment: ADEQ UATETesting performed at [place] [address] Performed By: #### U HCGT, UMAC, UMIC ####[place] [address] Erythrocyte distribution width Auto Ratio (RBC) 14.3 % Normal 11.5-14.5 [facility] Comment on above: Performed By: #### U HCGT, UMAC, UMIC ####[place] [address] Erythrocytes (RBC) 3.80 /cmm Low 4.0-5.4 [facility] Comment on above: Performed By: #### U HCGT, UMAC, UMIC ####[place] [address] Hematocrit (HCT) 34.8 % Low 36.0-48.0 [facility] Comment on above: Performed By: #### U HCGT, UMAC, UMIC ####[place] [address] Hemoglobin mass conc (Bld) 12.0 g/dL Normal 12.0-16.0 [facility] Comment on above: Performed By: #### U HCGT, UMAC, UMIC ####[place] [address] MCH 31.5 pg Normal 26.0-35.0 [facility] Comment on above: Performed By: #### U HCGT, UMAC, UMIC ####[place] [address] MCHC mass conc (RBC) 34.4 g/dL Normal 27.0-37.0 [facility] Comment on above: Performed By: #### U HCGT, UMAC, UMIC ####[place] [address] MCV 91.4 fL Normal 80.0-100.0 [facility] Comment on above: Performed By: #### U HCGT, UMAC, UMIC ####[place] [address] Platelet mean volume (PMV) 10.2 fL Normal 7.4-11.0 [facility] Comment on above: Result Comment: Test ing performed at [place] [address] Performed By: #### U HCGT, UMAC, UMIC ####[place] [address] Platelets 155 /cmm Normal 130.0-400.0 [facility] Comment on above: Performed By: #### U HCGT, UMAC, UMIC ####[place] [address] WBC (Leukocytes) 7.5 /cmm Normal 3.6-13.0 [facility] Comment on above: Performed By: #### U HCGT, UMAC, UMIC ####[place] [address] PROGRESSon 06-19-2017 [facility] NOTES Normal [facility] CBCon 06-03-2017 ABSOLUTE BAS 0.0 X10 Normal [facility] Comment on above: Result Comment: Test ing performed at [place] [address] Performed By: #### U HCGT, UMAC, UMIC ####[place] [address] ABSOLUTE EOS 0.10 X10 Normal [facility] Comment on above: Performed By: #### U HCGT, UMAC, UMIC ####[place] [address] Basophils/100 WBC Auto (Bld) 0.3 % Normal 0.0-2.0 [facility] Comment on above: Performed By: #### U HCGT, UMAC, UMIC ####[place] [address] DTYPE AUTO DIFF Normal [facility] Comment on above: Performed By: #### U HCGT, UMAC, UMIC ####[place] [address] Eosinophils/100 leukocytes 1.3 % Normal 0.0-11.0 [facility] Comment on above: Performed By: #### U HCGT, UMAC, UMIC ####Testing performed at [address] [address] Lymphocytes 1.60 X10 Normal [facility] Comment on above: Performed By: #### U HCGT, UMAC, UMIC ####Testing performed at [address] [address] Lymphocytes/100 leukocytes 19.9 % Low 20.0-55.0 [facility] Comment on above: Performed By: #### U HCGT, UMAC, UMIC ####Testing performed at [address] [address] Monocytes 0.5 X10 Normal [facility] Comment on above: Performed By: #### U HCGT, UMAC, UMIC ####Testing performed at [address] [address] Monocytes/100 leukocytes 6.7 % Normal 0.0-10.0 [facility] Comment on above: Performed By: #### U HCGT, UMAC, UMIC ####Testing performed at [address] [address] Neutrophils 5.8 x10 Normal 1.0-7.0 [facility] Comment on above: Performed By: #### U HCGT, UMAC, UMIC ####Testing performed at [address] [address] Neutrophils/100 leukocytes 71.8 % Normal 37.0-75.0 [facility] Comment on above: Performed By: #### U HCGT, UMAC, UMIC ####Testing performed at [address] [address] Erythrocyte distribution width Auto Ratio (RBC) 13.7 % Normal 11.5-14.5 [facility] Comment on above: Performed By: #### U HCGT, UMAC, UMIC ####Testing performed at [address] [address] Erythrocytes (RBC) 3.45 /cmm Low 4.0-5.4 [facility] Comment on above: Performed By: #### U HCGT, UMAC, UMIC ####[place] [address] Hematocrit (HCT) 31.5 % Low 36.0-48.0 [facility] Comment on above: Performed By: #### U HCGT, UMAC, UMIC ####[place] [address] Hemoglobin mass conc (Bld) 10.7 g/dL Low 12.0-16.0 [facility] Comment on above: Performed By: #### U HCGT, UMAC, UMIC ####[place] [address] MCH 31.1 pg Normal 26.0-35.0 [facility] Comment on above: Performed By: #### U HCGT, UMAC, UMIC ####[place] [address] MCHC mass conc (RBC) 34.1 g/dL Normal 27.0-37.0 [facility] Comment on above: Performed By: #### U HCGT, UMAC, UMIC ####[place] [address] MCV 91.3 fL Normal 80.0-100.0 [facility] Comment on above: Performed By: #### U HCGT, UMAC, UMIC ####[place] [address] Platelet mean volume (PMV) 10.4 fL Normal 7.4-11.0 [facility] Comment on above: Performed By: #### U HCGT, UMAC, UMIC ####[place] [address] Platelets 149 /cmm Normal 130.0-400.0 [facility] Comment on above: Performed By: #### U HCGT, UMAC, UMIC ####[place] [address] WBC (Leukocytes) 8.1 /cmm Normal 3.6-13.0 [facility] Comment on above: Performed By: #### U HCGT, UMAC, UMIC ####[place] [address] GLUCOSE FASTINGon 06-03-2017 Glucose mass conc 125 mg/dL High 70-100 [facility] Comment on above: Result Comment: NORM AL <100 mg/dLPREDIABETES 101-126 mg/dLDIABETES 126 mg/dL or higherTesting performed at [place] [address] Performed By: #### U HCGT, UMAC, UMIC ####[place] [address] GLUCOSE POST LOADINGon 06-03 Glucose mass conc 123 mg/dL Normal 65-140 [facility] Comment on above: Result Comment: Test ing performed at [place] [address] Performed By: #### U HCGT, UMAC, UMIC ####[place] [address] PROGRESSon 06-03-2017 [facility] NOTES Normal [facility] NOT[facility] Normal [facility] Addendumon 05-01-2017 [facility] CAC NOTES Normal [facility] PROGRESSon 05-01-2017 [facility] NOTES [facility] SENDOUT TESTon 04-15-2017 SENDOUT TEST SPECIMEN SENT TO REFERENCE LAB FOR TESTING [facility] Comment on above: Result Comment: [place] [id number] AFPTesting performed at [place] [address] Performed By: #### U HCGT, UMAC, UMIC ####[place] [address] PROGRESSon 04-08-2017 [facility] NOTES Normal [facility] CBCon 03-11-2017 ABSOLUTE BAS 0.0 X10 [facility] Comment on above: Result Comment: Test ing performed at [place] [address] Performed By: #### U HCGT, UMAC, UMIC ####Testing performed at [address] [place] [address] ABSOLUTE EOS 0.00 X10 Normal [facility] Comment on above: Performed By: #### U HCGT, UMAC, UMIC ####Testing performed at [address] [address] Basophils/100 WBC Auto (Bld) 0.2 % Normal 0.0-2.0 [facility] Comment on above: Performed By: #### U HCGT, UMAC, UMIC ####Testing performed at [place] [id number] DTYPE AUTO DIFF Normal [facility] Comment on above: Performed By: #### U HCGT, UMAC, UMIC ####[place] [address] Eosinophils/100 leukocytes 0.1 % Normal 0.0-11.0 [facility] Comment on above: Performed By: #### U HCGT, UMAC, UMIC ####Testing performed at [place] [id number] Lymphocytes 0.50 X10 Normal [facility] Comment on above: Performed By: #### U HCGT, UMAC, UMIC ####Testing performed at [place] [id number] Lymphocytes/100 leukocytes 9.1 % Low 20.0-55.0 [facility] Comment on above: Performed By: #### U HCGT, UMAC, UMIC ####Testing performed at [place] [id number] Monocytes 0.4 X10 Normal [facility] Comment on above: Performed By: #### U HCGT, UMAC, UMIC ####Testing performed at [place] [id number] Monocytes/100 leukocytes 7.0 % Normal 0.0-10.0 [facility] Comment on above: Performed By: #### U HCGT, UMAC, UMIC ####Testing performed at [place] [id number] Neutrophils 4.8 x10 Normal 1.0-7.0 [facility] Comment on above: Performed By: #### U HCGT, UMAC, UMIC ####[place] [address] Neutrophils/100 leukocytes 83.6 % High 37.0-75.0 [facility] Comment on above: Performed By: #### U HCGT, UMAC, UMIC ####[place] [address] Erythrocyte distribution width Auto Ratio (RBC) 14.2 % Normal 11.5-14.5 [facility] Comment on above: Performed By: #### U HCGT, UMAC, UMIC ####[place] [address] Erythrocytes (RBC) 4.48 /cmm Normal 4.0-5.4 [facility] Comment on above: Performed By: #### U HCGT, UMAC, UMIC ####[place] [address] Hematocrit (HCT) 39.7 % Normal 36.0-48.0 [facility] Comment on above: Performed By: #### U HCGT, UMAC, UMIC ####[place] [address] Hemoglobin mass conc (Bld) 13.4 g/dL Normal 12.0-16.0 [facility] Comment on above: Performed By: #### U HCGT, UMAC, UMIC ####[place] [address] MCH 29.8 pg Normal 26.0-35.0 [facility] Comment on above: Performed By: #### U HCGT, UMAC, UMIC ####Testing performed at [place] [id number] MCHC mass conc (RBC) 33.7 g/dL Normal 27.0-37.0 [facility] Comment on above: Performed By: #### U HCGT, UMAC, UMIC ####[place] [address] MCV 88.5 fL Normal 80.0-100.0 [facility] Comment on above: Performed By: #### U HCGT, UMAC, UMIC ####[place] [address] Platelet mean volume (PMV) 9.9 fL Normal 7.4-11.0 [facility] Comment on above: Performed By: #### U HCGT, UMAC, UMIC ####[place] [address] Platelets 146 /cmm Normal 130.0-400.0 [facility] Comment on above: Performed By: #### U HCGT, UMAC, UMIC ####[place] [address] WBC (Leukocytes) 5.8 /cmm Normal 3.6-13.0 [facility] Comment on above: Performed By: #### U HCGT, UMAC, UMIC ####[place] [address] CMP FASTINGon 03-11-2017 A:G RATIO 1.3 RATIO Normal 1.3-2.2 [facility] Comment on above: Performed By: #### U HCGT, UMAC, UMIC ####[place] [address] Alanine aminotransferase (ALT) 46 U/L Normal 9-52 [facility] Comment on above: Performed By: #### U HCGT, UMAC, UMIC ####[place] [address] Albumin 4.1 G/dl Normal 3.7-5.6 [facility] Comment on above: Performed By: #### U HCGT, UMAC, UMIC ####[place] [address] Alkaline phosphatase (ALP) 64 U/L Low 70-230 [facility] Comment on above: Performed By: #### U HCGT, UMAC, UMIC ####[place] [address] Aspartate aminotransferase (AST) 26 U/L Normal 10-30 [facility] Comment on above: Performed By: #### U HCGT, UMAC, UMIC ####[place] [address] Bilirubin (total) 0.7 mg/dL Normal 0.2-1.3 [facility] Comment on above: Performed By: #### U HCGT, UMAC, UMIC ####[place] [address] BUN (urea nitrogen) 9 mg/dL Normal 7-20 [facility] Comment on above: Performed By: #### U HCGT, UMAC, UMIC ####[place] [address] Calcium 9.4 mg/dL Normal 9.2-10.7 [facility] Comment on above: Performed By: #### U HCGT, UMAC, UMIC ####[place] [address] Chloride 104 mmol/L Normal 98-107 [facility] Comment on above: Performed By: #### U HCGT, UMAC, UMIC ####[place] [address] CO2 21 mmol/L Low 22-30 [facility] Comment on above: Performed By: #### U HCGT, UMAC, UMIC ####[place] [address] Creatinine 0.6 mg/dL Normal 0.6-1.2 [facility] Comment on above: Performed By: #### U HCGT, UMAC, UMIC ####[place] [address] eGFR (non-black) Unable to calculate GFR due to inappropriate age/gender/creatinin e value. Normal [facility] Comment on above: Result Comment: Test ing performed at [place] [address] Performed By: #### U HCGT, UMAC, UMIC ####[place] [address] Glucose mass conc 80 mg/dL Normal 70-100 [facility] Comment on above: Result Comment: NORM AL <100 mg/dLPREDIABETES 101-126 mg/dLDIABETES 126 mg/dL or higher Performed By: #### U HCGT, UMAC, UMIC ####[place] [address] Potassium molar conc 3.7 mmol/L Normal 3.5-5.1 [facility] Comment on above: Performed By: #### U HCGT, UMAC, UMIC ####[place] [address] Protein 7.2 g/dL Normal 6.3-8.6 [facility] Comment on above: Performed By: #### U HCGT, UMAC, UMIC ####[place] [address] Sodium 138 mmol/L Normal 137-145 [facility] Comment on above: Performed By: #### U HCGT, UMAC, UMIC ####[place] [address] ED NOTEon 03-11-2017 [facility] NOTES Normal [facility] Normal [facility] LIPASE,SERUMon 03-11-2017 LIPASE,SERUM 60 U/L Normal 23-300 [facility] Comment on above: Result Comment: Test ing performed at [place] [address] Performed By: #### U HCGT, UMAC, UMIC ####[place] [address] ED NOTEon 03-10-2017 [facility] NOTES Normal [facility] ED PROVIDERon 03-10-2017 [facility] NOTES Normal [facility] PROGRESSon 02-27-2017 [facility] NOTES Normal [facility] SENDOUT TESTon 02-27-2017 SENDOUT TEST SPECIMEN SENT TO REFERENCE LAB FOR TESTING Normal [facility] Comment on above: Result Comment: SENT TO OUTSIDE LAB NATERATesting performed at [place] [address] Performed By: #### U HCGT, UMAC, UMIC ####[place] [address] CHLAM/GC AMPLIFon 01-17-2017 CHLAMYDIA NUC. AMP Negative Normal Negative [facility] GONOCOCCUS NUC. AMP Negative Normal Negative [facility] Comment on above: Result Comment: PERF [facility]MED AT [facility] HBSAG SCREENon 01-16-2017 BSA (Body Surface Area) Negative Normal Negative [facility] Comment on above: Result Comment[facility] Performed By: #### U HCGT, UMAC, UMIC ####[place] [address] RPRon 01-16-2017 Reagin antibody presence NONREACTIVE Normal NONREACTIVE [facility] Comment on above: Result Comment: Test ing performed at [place] [address] Performed By: #### U HCGT, UMAC, UMIC ####[place] [address] RUBELLA SCREENon 01-16-2017 RUBELLA SCREEN Positive Normal POSITIVE [facility] Comment on above: Result Comment: POSI TIVE RESULT INDICATES PRESUMED IMMUNITYTesting performed at [place] [address] Performed By: #### U HCGT, UMAC, UMIC ####[place] [address] ABO/RH(D)on 01-15-2017 ABO/RH(D) ABO/RH(D) A NEGATIVE Testing performed at [place] [address] Normal [facility] Comment on above: Performed By: #### U HCGT, UMAC, UMIC ####Testing performed at [address] [address] ANTIBODY SCREENon 01-15-2017 ANTIBODY SCREEN ANTIBODY SCREEN NEGATIVE WORKUP EXPIRES 01/18/2017 Testing performed at [address] Comment on above: Performed By: #### U HCGT, UMAC, UMIC ####[place] [address] CBCon 01-15-2017 ABSOLUTE BAS 0.0 X10 Normal [facility] Comment on above: Result Comment: Test ing performed at [place] [address] Performed By: #### A CBC, GHIV, RPR, RUBL ####[place] [address]#### LHBSAG ####Testing performed [address] [place] [address] ABSOLUTE EOS 0.00 X10 [facility] Comment on above: Performed By: #### A CBC, GHIV, RPR, RUBL ####[place] [address]#### LHBSAG ####Testing performed at [facility] [facility] [place] [address] Basophils/100 WBC Auto (Bld) 0.4 % Normal 0.0-2.0 [facility] Comment on above: Performed By: #### A CBC, GHIV, RPR, RUBL ####[place] [address]#### LHBSAG ####Testing performed at [facility] [facility] [address] DTYPE AUTO DIFF Normal [facility] Comment on above: Performed By: #### A CBC, GHIV, RPR, RUBL ####[place] [address]#### LHBSAG ####Testing performed at [facility] [place] [address] Eosinophils/100 leukocytes 0.6 % Normal 0.0-11.0 [facility] Comment on above: Performed By: #### A CBC, GHIV, RPR, RUBL ####[place] [address]#### LHBSAG ####Testing performed at [facility] [place] [address] Lymphocytes 1.60 X10 Normal [facility] Comment on above: Performed By: #### A CBC, GHIV, RPR, RUBL ####[place] [address]#### LHBSAG ####Testing performed at [address] [place] [address] Lymphocytes/100 leukocytes 23.8 % Normal 20.0-55.0 [facility] Comment on above: Performed By: #### A CBC, GHIV, RPR, RUBL ####[place] [address]#### LHBSAG ####Testing performed at [address] [place] [address] Monocytes 0.5 X10 Normal [facility] Comment on above: Performed By: #### A CBC, GHIV, RPR, RUBL ####[place] [address]#### LHBSAG ####Testing performed at [address] [place] [address] Monocytes/100 leukocytes 7.1 % Normal 0.0-10.0 [facility] Comment on above: Performed By: #### A CBC, GHIV, RPR, RUBL ####[place] [address]#### LHBSAG ####Testing performed at [address] [place] [address] Neutrophils 4.6 x10 Normal 1.0-7.0 [facility] Comment on above: Performed By: #### A CBC, GHIV, RPR, RUBL ####[place] [address]#### LHBSAG ####Testing performed at [address] [place] [address] Neutrophils/100 leukocytes 68.1 % Normal 37.0-75.0 [facility] Comment on above: Performed By: #### A CBC, GHIV, RPR, RUBL ####[place] [address]#### LHBSAG ####Testing performed at [address] [place] [address] Erythrocyte distribution width Auto Ratio (RBC) 13.9 % Normal 11.5-14.5 [facility] Comment on above: Performed By: #### A CBC, GHIV, RPR, RUBL ####[place] [address]#### LHBSAG ####Testing performed at [address] [place] [address] Erythrocytes (RBC) 4.69 /cmm Normal 4.0-5.4 [facility] Comment on above: Performed By: #### A CBC, GHIV, RPR, RUBL ####[place] [address]#### LHBSAG ####Testing performed at [address] [place] [address] Hematocrit (HCT) 42.0 % Normal 36.0-48.0 [facility] Comment on above: Performed By: #### A CBC, GHIV, RPR, RUBL ####Testing performed at [address] [address]#### LHBSAG ####Testing performed at [address] [place] [address] Hemoglobin mass conc (Bld) 14.1 g/dL Normal 12.0-16.0 [facility] Comment on above: Performed By: #### A CBC, GHIV, RPR, RUBL ####[place] [address]#### LHBSAG ####Testing performed at [address] [place] [address] MCH 30.0 pg Normal 26.0-35.0 [facility] Comment on above: Performed By: #### A CBC, GHIV, RPR, RUBL ####[place] [address]#### LHBSAG ####Testing performed at [address] [place] [address] MCHC mass conc (RBC) 33.5 g/dL Normal 27.0-37.0 [facility] Comment on above: Performed By: #### A CBC, GHIV, RPR, RUBL ####[place] [address]#### LHBSAG ####Testing performed at [address] [address] MCV 89.6 fL Normal 80.0-100.0 [facility] Comment on above: Performed By: #### A CBC, GHIV, RPR, RUBL ####[place] [address]#### LHBSAG ####Testing performed at [address] [address] Platelet mean volume (PMV) 10.6 fL Normal 7.4-11.0 [facility] Comment on above: Performed By: #### A CBC, GHIV, RPR, RUBL ####[place] [address]#### LHBSAG ####Testing performed at [address] [place] [address] Platelets 189 /cmm Normal 130.0-400.0 [facility] Comment on above: Performed By: #### A CBC, GHIV, RPR, RUBL ####[place] [address]#### LHBSAG ####Testing performed at [address] [place] [address] WBC (Leukocytes) 6.8 /cmm Normal 3.6-13.0 [facility] Comment on above: Performed By: #### A CBC, GHIV, RPR, RUBL ####[place] [address]#### LHBSAG ####Testing performed at [address] [place] [address] HIV 1,2 ABon 01-15-2017 HIV 1,2 NONREACTIVE Normal NONREACTIVE [facility] Comment on above: Result Comment: Test ing performed at [place] [address] Performed By: #### A CBC, GHIV, RPR, RUBL ####[place] [address]#### LHBSAG ####Testing performed at [address] [place] [address] PROGRESSon 01-15-2017 [facility] NOTES Normal [facility] RAPID TOX SCREEN,URINE WITH REFLEXon 01-15-2017 AMPHETAMINE Negative Normal NEGATIVE [facility] Comment on above: Result Comment: <500 ng/ml CUTOFF Performed By: #### U HCGT, UMAC, UMIC ####Testing performed at [place] [id number] BARBITURATES Negative Normal NEGATIVE [facility] Comment on above: Result Comment: <200 ng/ml CUTOFF Performed By: #### U HCGT, UMAC, UMIC ####[place] [address] BUPRENORPHINE Negative Normal NEGATIVE [facility] Comment on above: Result Comment: <10 ng/ml CUTOFFTesting performed at [place] [address] Performed By: #### U HCGT, UMAC, UMIC ####[place] [address] METHAMPHETAMINE Negative Normal NEGATIVE [facility] Comment on above: Result Comment: <500 ng/ml CUTOFF Performed By: #### U HCGT, UMAC, UMIC ####[place] [address] OXYCODONE Negative Normal NEGATIVE [facility] Comment on above: Result Comment: <100 ng/ml CUTOFF Performed By: #### U HCGT, UMAC, UMIC ####[place] [address] PROPOXYPHENE Negative Normal NEGATIVE [facility] Comment on above: Result Comment: <300 ng/ml CUTOFF Performed By: #### U HCGT, UMAC, UMIC ####[place] [address] Urine, benzodiazepines presence Negative Normal NEGATIVE [facility] Comment on above: Result Comment: <150 ng/ml CUTOFF Performed By: #### U HCGT, UMAC, UMIC ####[place] [address] Urine, cannabinoids presence Negative Normal NEGATIVE [facility] Comment on above: Result Comment: <50 ng/ml CUTOFF Performed By: #### U HCGT, UMAC, UMIC ####[place] [address] Urine, cocaine presence Negative Normal NEGATIVE [facility] Comment on above: Result Comment: <150 ng/ml CUTOFF Performed By: #### U HCGT, UMAC, UMIC ####[place] [address] Urine, methadone presence Negative Normal NEGATIVE [facility] Comment on above: Result Comment: <200 ng/ml CUTOFF Performed By: #### U HCGT, UMAC, UMIC ####[place] [address] Urine, opiates presence Negative Normal NEGATIVE [facility] Comment on above: Result Comment: <100 ng/ml CUTOFF Performed By: #### U HCGT, UMAC, UMIC ####[place] [address] Urine, phencyclidine presence Negative Normal NEGATIVE [facility] Comment on above: Result Comment: <25 ng/ml CUTOFF Performed By: #### U HCGT, UMAC, UMIC ####[place] [address] Urine, tricyclic antidepressants Negative Normal NEGATIVE [facility] Comment on above: Result Comment: <300 ng/ml CUTOFF Performed By: #### U HCGT, UMAC, UMIC ####[place] [address] URINE CULTUREon 01-15-2017 Urine culture, bacteria SPECIMEN DESCRIP TION URINE CLEAN CATCHUA DIPSTICK LEUKOCYTE NEGATIVE * Result Note: NITRITE NEGATIVE *CULTURE NO GROWTH 2 DAYS * Result Note: Testing performed at [place] [address] *REPORT STATUS 01/17/2017 * Result Note: FINAL * Normal [facility] Comment on above: Performed By: #### U HCGT, UMAC, UMIC ####[place] [address] ED NOTEon 12-31-2016 [facility] NOTES Normal [facility] ED PROVIDERon 12-30-2016 [facility] NOTES Normal [facility] URINE CULTUREon 12-30-2016 Urine culture, bacteria SPECIMEN DESCRIP TION URINE - OTHERUA DIPSTICK LEUKOCYTE POSITIVE * Result Note: NITRITE NEGATIVE *CULTURE NO PATHOGENS ISOLATED * Result Note: Testing performed at [place] [address] *REPORT STATUS 01/01/2017 * Result Note: FINAL * Normal [facility] Comment on above: Performed By: #### A URNC ####[place] [address] URINE HCG QUALon 12-30-2016 HCG.beta subunit ( test) Ql (U) Positive Normal [facility] Comment on above: Result Comment: Test ing performed at [place] [address] Performed By: #### U HCGT, UMAC, UMIC ####[place] [address] URINE MACROSCOPICon 12-31-19 Bilirubin Ql (U) Negative Normal NEGATIVE [facility] Comment on above: Performed By: #### U HCGT, UMAC, UMIC ####[place] [address] URINE HEMOGLOBIN Negative Normal NEGATIVE [facility] Comment on above: Performed By: #### U HCGT, UMAC, UMIC ####[place] [address] URINE KETONE TRACE Abnormal NEGATIVE [facility] Comment on above: Performed By: #### U HCGT, UMAC, UMIC ####[place] [address] URINE LEUKOTEST TRACE Abnormal NEGATIVE [facility] Comment on above: Result Comment: Test ing performed at [place] [address] Performed By: #### U HCGT, UMAC, UMIC ####[place] [address] URINE NITRATES Negative Normal NEGATIVE [facility] Comment on above: Performed By: #### U HCGT, UMAC, UMIC ####[place] [address] URINE SPEC GRAVITY 1.025 Normal 1.010-1.025 [facility] Comment on above: Performed By: #### U HCGT, UMAC, UMIC ####[place] [address] URINE TOTAL PROTEIN Negative Normal NEGATIVE [facility] Comment on above: Performed By: #### U HCGT, UMAC, UMIC ####[place] [address] Urine, clarity CLEAR Normal CLEAR [facility] Comment on above: Performed By: #### U HCGT, UMAC, UMIC ####Testing performed at [place] [id number] Urine, color YELLOW Normal YELLOW [facility] Comment on above: Performed By: #### U HCGT, UMAC, UMIC ####[place] [address] Urine, glucose presence Negative Normal NEGATIVE [facility] Comment on above: Performed By: #### U HCGT, UMAC, UMIC ####[place] [address] Urine, pH 5.5 [pH] Normal 5.0-7.0 [facility] Comment on above: Performed By: #### U HCGT, UMAC, UMIC ####[place] [address] Urine, urobilinogen 0.2 mg/dl Normal 0.2-1.0 [facility] Comment on above: Performed By: #### U HCGT, UMAC, UMIC ####[place] [address] URINE MICROSCOPICon 12-31-19 17 CRYSTAL NONE Normal NONE [facility] Comment on above: Performed By: #### U HCGT, UMAC, UMIC ####[place] [address] URINE COMMENT REFLEX CULTURE PER ESTABLISHED CRITERIA. Normal [facility] Comment on above: Result Comment: Test ing performed at [place] [address] Performed By: #### U HCGT, UMAC, UMIC ####[place] [address] URINE WBC'S 1 TO 5 Normal NEGATIVE [facility] Comment on above: Performed By: #### U HCGT, UMAC, UMIC ####[place] [address] Urine, bacteria in sediment 1+ Abnormal NEGATIVE [facility] Comment on above: Performed By: #### U HCGT, UMAC, UMIC ####Testing performed at [address] [address] Urine, casts in sediment NONE Normal NONE [facility] Comment on above: Performed By: #### U HCGT, UMAC, UMIC ####[place] [address] Urine, epithelial cells in sediment 1 TO 5 Normal [facility] Comment on above: Performed By: #### U HCGT, UMAC, UMIC ####Testing performed at [address] [address] Urine, erythrocytes Negative Normal NEGATIVE [facility] Comment on above: Performed By: #### U HCGT, UMAC, UMIC ####[place] [address] Urine, mucus presence in sediment Negative Normal NEGATIVE [facility] Comment on above: Performed By: #### U HCGT, UMAC, UMIC ####Testing performed at [address] [address] ED NOTEon 09-13-2016 [facility] NOTES Normal [facility] Vital Signs Date Time Vital Sign Value Performing Clinician Facility 09-28-2024 11:16-0400 Body mass index (BMI) [Ratio] 35.07 kg/m2 Jaquelin Hi APRN.CNM Work Phone: [facility] 09-28-2024 11:16-0400 Body weight 89.81 kg Jaquelin Hi APRN.CNM Work Phone: [facility] 09-28-2024 11:16-0400 Diastolic blood pressure 80 mm[Hg] Jaquelin Hi APRN.CNM Work Phone: [facility] 09-28-2024 11:16-0400 Systolic blood pressure 120 mm[Hg] Jaquelin Hi APRN.CNM Work Phone: [facility] 2024 10:47-0400 Body mass index (BMI) [Ratio] 34.37 kg/m2 Yamila Ballard MD Work Phone: [facility] 2024 10:47-0400 Body weight 88 kg Yamila Ballard MD Work Phone: [facility] 2024 10:47-0400 Diastolic blood pressure 74 mm[Hg] Yamila Ballard MD Work Phone: [facility] 2024 10:47-0400 Systolic blood pressure 108 mm[Hg] Yamila Ballard MD Work Phone: [facility] 09-19-2024 12:56-0400 Body temperature 98.1 [degF] Rachell Queden DIGITAL HARDWARE DESIGN ENGINEER-C Work Phone: [facility] 09-19-2024 12:55-0400 Respiratory rate 16 /min Rachell Queden DIGITAL HARDWARE DESIGN ENGINEER-C Work Phone: [facility] 09-19-2024 12:54-0400 Diastolic blood pressure 75 mm[Hg] Rachell Queden DIGITAL HARDWARE DESIGN ENGINEER-C Work Phone: [facility] 09-19-2024 12:54-0400 Heart rate 93 /min Rachell Queden DIGITAL HARDWARE DESIGN ENGINEER-C Work Phone: [facility] 09-19-2024 12:54-0400 Systolic blood pressure 130 mm[Hg] Rachell Queden DIGITAL HARDWARE DESIGN ENGINEER-C Work Phone: [facility] 09-19-2024 12:43-0400 Body height 160.02 cm Rachell Queden DIGITAL HARDWARE DESIGN ENGINEER-C Work Phone: [facility] 09-19-2024 12:43-0400 Body mass index (BMI) [Ratio] 34 kg/m2 Rachell Queden DIGITAL HARDWARE DESIGN ENGINEER-C Work Phone: [facility] 09-19-2024 12:43-0400 Body weight 87 kg Rachell Queden DIGITAL HARDWARE DESIGN ENGINEER-C Work Phone: [facility] 09-09-2024 22:20-0400 Body temperature 98.71 [degF] Rio Kelly DO Work Phone: [facility] 09-09-2024 22:20-0400 Diastolic blood pressure 78 mm[Hg] Rio Kelly DO Work Phone: [facility] 09-09-2024 22:20-0400 Heart rate 81 /min Rio Kelly DO Work Phone: [facility] 09-09-2024 22:20-0400 Respiratory rate 16 /min Rio Kelly DO Work Phone: [facility] 09-09-2024 22:20-0400 Systolic blood pressure 124 mm[Hg] Rio Kelly DO Work Phone: [facility] 09-09-2024 19:44-0400 Body height 160 cm Rio Kelly DO Work Phone: [facility] 09-09-2024 19:44-0400 Body mass index (BMI) [Ratio] 34.03 kg/m2 Rio Kelly DO Work Phone: [facility] 09-09-2024 19:44-0400 Body weight 87.14 kg Rio Kelly DO Work Phone: [facility] 09-09-2024 19:44-0400 SaO2% (BldA) [Mass fraction] 96 % Rio Kelly DO Work Phone: [facility] 09-09-2024 11:48-0400 Diastolic blood pressure 71 mm[Hg] Rachell Queden DIGITAL HARDWARE DESIGN ENGINEER-C Work Phone: [facility] 09-09-2024 11:48-0400 Heart rate 85 /min Rachell Queden DIGITAL HARDWARE DESIGN ENGINEER-C Work Phone: [facility] 09-09-2024 11:48-0400 Systolic blood pressure 123 mm[Hg] Rachell Queden DIGITAL HARDWARE DESIGN ENGINEER-C Work Phone: [facility] 09-09-2024 11:46-0400 Body temperature 97.3 [degF] Rachell Queden DIGITAL HARDWARE DESIGN ENGINEER-C Work Phone: [facility] 09-09-2024 11:46-0400 Respiratory rate 16 /min Rachell Queden DIGITAL HARDWARE DESIGN ENGINEER-C Work Phone: [facility] 09-09-2024 11:46-0400 SaO2% (BldA) [Mass fraction] 96 % Rachell Queden DIGITAL HARDWARE DESIGN ENGINEER-C Work Phone: [facility] 09-09-2024 11:20-0400 Body height 160.02 cm Rachell Queden DIGITAL HARDWARE DESIGN ENGINEER-C Work Phone: [facility] 09-09-2024 11:20-0400 Body mass index (BMI) [Ratio] 33.7 kg/m2 Rachell Queden DIGITAL HARDWARE DESIGN ENGINEER-C Work Phone: [facility] 09-09-2024 11:20-0400 Body weight 86.5 kg Rachell Queden DIGITAL HARDWARE DESIGN ENGINEER-C Work Phone: [facility] 09-08-2024 09:58-0400 Body mass index (BMI) [Ratio] 33.66 kg/m2 Gino Valero P[employer] SAWYER.CNM Work Phone: [facility] 09-08-2024 09:58-0400 Body weight 86.18 kg Gino Valero P[employer] SAWYER.CNM Work Phone: [facility] 09-08-2024 09:58-0400 Diastolic blood pressure 77 mm[Hg] Gino Valero [employer] SAWYER.CNM Work Phone: [facility] Comment on above: BP machine 09-08-2024 09:58-0400 Systolic blood pressure 119 mm[Hg] Gino Valero P[employer] SAWYER.CNM Work Phone: [facility] Comment on above: BP machine 09-08-2024 00:42-0400 Heart rate 87 /min Rachell Queden DIGITAL HARDWARE DESIGN ENGINEER-C Work Phone: [facility] 09-08-2024 00:42-0400 SaO2% (BldA) [Mass fraction] 96 % Rachell Queden DIGITAL HARDWARE DESIGN ENGINEER-C Work Phone: [facility] 09-08-2024 00:17-0400 Body height 160.02 cm Rachell Queden DIGITAL HARDWARE DESIGN ENGINEER-C Work Phone: [facility] 09-08-2024 00:17-0400 Body mass index (BMI) [Ratio] 33.9 kg/m2 Rachell Queden DIGITAL HARDWARE DESIGN ENGINEER-C Work Phone: [facility] 09-08-2024 00:17-0400 Body weight 86.9 kg Rachell Queden DIGITAL HARDWARE DESIGN ENGINEER-C Work Phone: [facility] 09-07-2024 23:10-0400 Body temperature 97.9 [degF] Rachell Queden DIGITAL HARDWARE DESIGN ENGINEER-C Work Phone: [facility] 09-07-2024 23:10-0400 Respiratory rate 16 /min Rachell Queden DIGITAL HARDWARE DESIGN ENGINEER-C Work Phone: [facility] 09-07-2024 23:07-0400 Diastolic blood pressure 67 mm[Hg] Rachell Queden DIGITAL HARDWARE DESIGN ENGINEER-C Work Phone: [facility] 09-07-2024 23:07-0400 Systolic blood pressure 120 mm[Hg] Rachell Queden DIGITAL HARDWARE DESIGN ENGINEER-C Work Phone: [facility] 09-07-2024 14:54-0400 Body mass index (BMI) [Ratio] 33.3 kg/m2 Yamila Ballard MD Work Phone: [facility] 09-07-2024 14:54-0400 Body weight 85.28 kg Yamila Ballard MD Work Phone: [facility] 09-07-2024 14:54-0400 Diastolic blood pressure 66 mm[Hg] Yamila Ballard MD Work Phone: [facility] 09-07-2024 14:54-0400 Systolic blood pressure 110 mm[Hg] Yamila Ballard MD Work Phone: [facility] 08-24-2024 14:31-0400 Diastolic blood pressure 63 mm[Hg] Treatment 2 [facility] 08-24-2024 14:31-0400 Heart rate 83 /min Treatment 2 [facility] 08-24-2024 14:31-0400 Respiratory rate 16 /min Treatment 2 [facility] 08-24-2024 14:31-0400 SaO2% (BldA) [Mass fraction] 100 % Treatment 2 [facility] 08-24-2024 14:31-0400 Systolic blood pressure 105 mm[Hg] Treatment 2 [facility] 08-24-2024 13:46-0400 Body temperature 98.71 [degF] Treatment 2 [facility] 08-24-2024 10:45-0400 Body mass index (BMI) [Ratio] 32.24 kg/m2 Prabhu Ortez MD Work Phone: [facility] 08-24-2024 10:45-0400 Body weight 82.56 kg Prabhu Ortez MD Work Phone: [facility] 08-24-2024 10:45-0400 Diastolic blood pressure 60 mm[Hg] Prabhu Ortez MD Work Phone: [facility] 08-24-2024 10:45-0400 Systolic blood pressure 110 mm[Hg] Prabhu Ortez MD Work Phone: [facility] 08-20-2024 15:21-0400 Diastolic blood pressure 71 mm[Hg] Treatment 2 [facility] 08-20-2024 15:21-0400 Heart rate 89 /min Treatment 2 [facility] 08-20-2024 15:21-0400 Respiratory rate 18 /min Treatment 2 [facility] 08-20-2024 15:21-0400 SaO2% (BldA) [Mass fraction] 98 % Treatment 2 [facility] 08-20-2024 15:21-0400 Systolic blood pressure 107 mm[Hg] Treatment 2 [facility] 08-17-2024 15:15-0400 Body temperature 98.01 [degF] Treatment 1 [facility] 08-17-2024 15:15-0400 Diastolic blood pressure 67 mm[Hg] Treatment 1 [facility] 08-17-2024 15:15-0400 Heart rate 95 /min Treatment 1 [facility] 08-17-2024 15:15-0400 Respiratory rate 16 /min Treatment 1 [facility] 08-17-2024 15:15-0400 SaO2% (BldA) [Mass fraction] 96 % Treatment 1 [facility] 08-17-2024 15:15-0400 Systolic blood pressure 117 mm[Hg] Treatment 1 [facility] 08-12-2024 15:13-0400 Diastolic blood pressure 62 mm[Hg] Treatment 2 [facility] 08-12-2024 15:13-0400 Heart rate 82 /min Treatment 2 [facility] 08-12-2024 15:13-0400 Respiratory rate 16 /min Treatment 2 [facility] 08-12-2024 15:13-0400 SaO2% (BldA) [Mass fraction] 100 % Treatment 2 [facility] 08-12-2024 15:13-0400 Systolic blood pressure 101 mm[Hg] Treatment 2 [facility] 08-12-2024 14:31-0400 Body temperature 98.01 [degF] Treatment 2 [facility] 08-10-2024 11:27-0400 Body mass index (BMI) [Ratio] 31.53 kg/m2 Prabhu Ortez MD Work Phone: [facility] 08-10-2024 11:27-0400 Body weight 80.74 kg Prabhu Ortez MD Work Phone: [facility] 08-10-2024 11:27-0400 Diastolic blood pressure 60 mm[Hg] Prabhu Ortez MD Work Phone: [facility] 08-10-2024 11:27-0400 Systolic blood pressure 112 mm[Hg] Prabhu Ortez MD Work Phone: [facility] 08-03-2024 15:49-0400 Diastolic blood pressure 61 mm[Hg] Rachell Amador DIGITAL HARDWARE DESIGN ENGINEER-C Work Phone: [facility] 08-03-2024 15:49-0400 Heart rate 85 /min Rachell Amador DIGITAL HARDWARE DESIGN ENGINEER-C Work Phone: [facility] 08-03-2024 15:49-0400 Systolic blood pressure 109 mm[Hg] Rachell Queden DIGITAL HARDWARE DESIGN ENGINEER-C Work Phone: [facility] 08-03-2024 13:42-0400 Body height 160.02 cm Rachell Queden DIGITAL HARDWARE DESIGN ENGINEER-C Work Phone: [facility] 08-03-2024 13:42-0400 Body mass index (BMI) [Ratio] 31.3 kg/m2 Rachell Queden DIGITAL HARDWARE DESIGN ENGINEER-C Work Phone: [facility] 08-03-2024 13:42-0400 Body weight 80.19 kg Rachell Queden DIGITAL HARDWARE DESIGN ENGINEER-C Work Phone: [facility] 08-03-2024 13:36-0400 Body temperature 98.1 [degF] Rachell Queden DIGITAL HARDWARE DESIGN ENGINEER-C Work Phone: [facility] 08-03-2024 13:36-0400 Respiratory rate 14 /min Rachell Queden DIGITAL HARDWARE DESIGN ENGINEER-C Work Phone: [facility] 08-03-2024 13:36-0400 SaO2% (BldA) [Mass fraction] 100 % Rachell Queden DIGITAL HARDWARE DESIGN ENGINEER-C Work Phone: [facility] 08-03-2024 11:55-0400 Body height 160 cm Ramiro Hugo MD Work Phone: [facility] 08-03-2024 11:55-0400 Body mass index (BMI) [Ratio] 31.18 kg/m2 Ramiro Hugo MD Work Phone: [facility] 08-03-2024 11:55-0400 Body weight 79.83 kg Ramiro Hugo MD Work Phone: [facility] 08-03-2024 11:55-0400 Diastolic blood pressure 70 mm[Hg] Ramiro Hugo MD Work Phone: [facility] 08-03-2024 11:55-0400 Heart rate 92 /min Ramiro Hugo MD Work Phone: [facility] 08-03-2024 11:55-0400 SaO2% (BldA) [Mass fraction] 98 % Ramiro Hugo MD Work Phone: [facility] 08-03-2024 11:55-0400 Systolic blood pressure 104 mm[Hg] Ramiro Hugo MD Work Phone: [facility] 07-27-2024 13:21-0400 Body mass index (BMI) [Ratio] 31.11 kg/m2 Yamila Ballard MD Work Phone: [facility] 07-27-2024 13:21-0400 Body weight 79.65 kg Yamila Ballard MD Work Phone: [facility] 07-27-2024 13:21-0400 Diastolic blood pressure 66 mm[Hg] Yamila Ballard MD Work Phone: [facility] 07-27-2024 13:21-0400 Systolic blood pressure 118 mm[Hg] Yamila Ballard MD Work Phone: [facility] 06-01-2024 09:46-0400 Body mass index (BMI) [Ratio] 26.22 kg/m2 Jaquelin Hi APRN.CNM Work Phone: [facility] 06-01-2024 09:46-0400 Body weight 67.13 kg Jaquelin Hi APRN.CNM Work Phone: [facility] 06-01-2024 09:46-0400 Diastolic blood pressure 60 mm[Hg] Jaquelin Hi APRN.CNLilly Work Phone: [facility] 06-01-2024 09:46-0400 Systolic blood pressure 106 mm[Hg] Jaquelin Hi APRN.CNLilly Work Phone: [facility] 05-04-2024 14:30-0400 Body mass index (BMI) [Ratio] 24.27 kg/m2 Jaquelin Hi APRN.CNM Work Phone: [facility] 05-04-2024 14:30-0400 Body weight 62.14 kg Jaquelin Hi [employer]ER.CNM Work Phone: [facility] 05-04-2024 14:30-0400 Diastolic blood pressure 60 mm[Hg] Jaquelin Hi [employer]ER.CNM Work Phone: [facility] 05-04-2024 14:30-0400 Systolic blood pressure 108 mm[Hg] Jaquelin Hi [employer]ER.CNM Work Phone: [facility] 04-07-2024 14:47-0500 Body mass index (BMI) [Ratio] 23.03 kg/m2 Jaquelin Hi [employer]ER.CNM Work Phone: [facility] 04-07-2024 14:47-0500 Body weight 58.97 kg Jaquelin Hi [employer]ER.CNM Work Phone: [facility] 04-07-2024 14:47-0500 Diastolic blood pressure 62 mm[Hg] Jaquelin Hi [employer]ER.CNM Work Phone: [facility] 04-07-2024 14:47-0500 Systolic blood pressure 116 mm[Hg] Jaquelin Hi [employer] SAWYER.CNM Work Phone: [facility] 03-09-2024 13:14-0500 Body height 160 cm Jaquelin Hi [employer]ER.CNM Work Phone: [facility] 03-09-2024 13:14-0500 Body mass index (BMI) [Ratio] 23.03 kg/m2 Jaquelin Hi [employer]ER.CNM Work Phone: [facility] 03-09-2024 13:14-0500 Body weight 58.97 kg Jaquelin Hi [employer]ER.CNM Work Phone: [facility] 03-09-2024 13:14-0500 Diastolic blood pressure 64 mm[Hg] Jaquelin Hi [employer]ER.CNM Work Phone: [facility] 03-09-2024 13:14-0500 Systolic blood pressure 108 mm[Hg] Jaquelin Hi NOA.CNM Work Phone: [facility] 02-18-2024 14:40-0500 Diastolic blood pressure 87 mm[Hg] Rachell Jackden PIPE STEM SAWYER-SEMICONDUCTOR WAFERS TESTER Work Phone: [facility] 02-18-2024 14:40-0500 Heart rate 65 /min Rachell Gueroden P[employer] SAWYER-SEMICONDUCTOR WAFERS TESTER Work Phone: [facility] 02-18-2024 14:40-0500 Respiratory rate 20 /min Rachell Queden P[employer] SAWYER-SEMICONDUCTOR WAFERS TESTER Work Phone: [facility] 02-18-2024 14:40-0500 SaO2% (BldA) [Mass fraction] 100 % Rachell Queden P[employer] SAWYER-SEMICONDUCTOR WAFERS TESTER Work Phone: [facility] 02-18-2024 14:40-0500 Systolic blood pressure 104 mm[Hg] Rachell Queden P[employer] SAWYER-SEMICONDUCTOR WAFERS TESTER Work Phone: [facility] 02-18-2024 10:54-0500 Body height 160 cm Rachell Queden P[employer] SAWYER-SEMICONDUCTOR WAFERS TESTER Work Phone: [facility] 02-18-2024 10:54-0500 Body mass index (BMI) [Ratio] 24.09 kg/m2 Rachell Gueroden [employer]WYER-SEMICONDUCTOR WAFERS TESTER Work Phone: [facility] 02-18-2024 10:54-0500 Body temperature 98.1 [degF] Rachell Queden P[employer]WYER-SEMICONDUCTOR WAFERS TESTER Work Phone: [facility] 02-18-2024 10:54-0500 Body weight 61.69 kg Rachell Queden [employer] SAWYER-SEMICONDUCTOR WAFERS TESTER Work Phone: [facility] 01-27-2024 09:38-0500 Body mass index (BMI) [Ratio] 23.21 kg/m2 Ramiro Hugo MD Work Phone: [facility] 01-27-2024 09:38-0500 Body weight 59.42 kg Ramiro Hugo MD Work Phone: [facility] 01-27-2024 09:38-0500 Diastolic blood pressure 74 mm[Hg] Ramiro Hugo MD Work Phone: [facility] 01-27-2024 09:38-0500 Heart rate 68 /min Ramiro Hugo MD Work Phone: [facility] 01-27-2024 09:38-0500 Respiratory rate 16 /min Ramiro Hugo MD Work Phone: [facility] 01-27-2024 09:38-0500 SaO2% (BldA) [Mass fraction] 94 % Ramiro Hugo MD Work Phone: [facility] 01-27-2024 09:38-0500 Systolic blood pressure 122 mm[Hg] Ramiro Hugo MD Work Phone: [facility] 12-26-2023 10:08-0500 Body height 160 cm Rachell Queden [employer]ER.SEMICONDUCTOR WAFERS TESTER Work Phone: [facility] 12-26-2023 10:08-0500 Body mass index (BMI) [Ratio] 21.97 kg/m2 Rachell Queden [employer]ER.SEMICONDUCTOR WAFERS TESTER Work Phone: [facility] 12-26-2023 10:08-0500 Body temperature 98.01 [degF] Rachell Queden [employer]ER.SEMICONDUCTOR WAFERS TESTER Work Phone: [facility] 12-26-2023 10:08-0500 Body weight 56.25 kg Rachell Queden P[employer]ER.SEMICONDUCTOR WAFERS TESTER Work Phone: [facility] 12-26-2023 10:08-0500 Diastolic blood pressure 62 mm[Hg] Rachell Queden [employer]ER.SEMICONDUCTOR WAFERS TESTER Work Phone: [facility] 12-26-2023 10:08-0500 Heart rate 52 /min Rachell Queden P[employer]ER.SEMICONDUCTOR WAFERS TESTER Work Phone: [facility] 12-26-2023 10:08-0500 Respiratory rate 16 /min Rachell Queden P[employer]ER.SEMICONDUCTOR WAFERS TESTER Work Phone: [facility] 12-26-2023 10:08-0500 SaO2% (BldA) [Mass fraction] 100 % Rachell Queden [employer]ER.SEMICONDUCTOR WAFERS TESTER Work Phone: [facility] 12-26-2023 10:08-0500 Systolic blood pressure 122 mm[Hg] Rachell Queden P[employer]ER.SEMICONDUCTOR WAFERS TESTER Work Phone: [facility] 12-10-2023 13:20-0400 Body height 160 cm Norbert Noriega MD Work Phone: [facility] 12-10-2023 13:20-0400 Body mass index (BMI) [Ratio] 21.15 kg/m2 Norbert Noriega MD Work Phone: [facility] 12-10-2023 13:20-0400 Body weight 54.16 kg Norbert Noriega MD Work Phone: [facility] 12-10-2023 13:20-0400 Diastolic blood pressure 60 mm[Hg] Norbert Noriega MD Work Phone: [facility] 12-10-2023 13:20-0400 Heart rate 73 /min Norbert Noriega MD Work Phone: [facility] 12-10-2023 13:20-0400 SaO2% (BldA) [Mass fraction] 97 % Norbert Noriega MD Work Phone: [facility] 12-10-2023 13:20-0400 Systolic blood pressure 92 mm[Hg] Norbert Noriega MD Work Phone: [facility] 11-24-2023 12:45-0400 Body mass index (BMI) [Ratio] 21.26 kg/m2 Sandra Kelsey [employer]ER.SEMICONDUCTOR WAFERS TESTER Work Phone: [facility] 11-24-2023 12:45-0400 Body weight 54.43 kg Sandra [place] P[employer]ER.SEMICONDUCTOR WAFERS TESTER Work Phone: [facility] 11-24-2023 12:45-0400 Diastolic blood pressure 64 mm[Hg] Sandra [place] [employer]ER.SEMICONDUCTOR WAFERS TESTER Work Phone: [facility] 11-24-2023 12:45-0400 Systolic blood pressure 118 mm[Hg] Sandra Kelsey P[employer] SAW[employer]ER.SEMICONDUCTOR WAFERS TESTER Work Phone: [facility] 10-03-2023 13:15-0400 SaO2% (BldA) [Mass fraction] 97 % Ramiro Hugo MD Work Phone: [facility] 10-03-2023 12:45-0400 Diastolic blood pressure 58 mm[Hg] Ramiro Hugo MD Work Phone: [facility] 10-03-2023 12:45-0400 Heart rate 68 /min Ramiro Hugo MD Work Phone: [facility] 10-03-2023 12:45-0400 Respiratory rate 16 /min Ramiro Hugo MD Work Phone: [facility] 10-03-2023 12:45-0400 Systolic blood pressure 112 mm[Hg] Ramiro Hugo MD Work Phone: [facility] 10-03-2023 11:47-0400 Body temperature 97.5 [degF] Ramiro Hugo MD Work Phone: [facility] 10-03-2023 06:57-0400 Body height 160 cm Ramiro Hugo MD Work Phone: [facility] 10-03-2023 06:57-0400 Body mass index (BMI) [Ratio] 20.39 kg/m2 Ramiro Hugo MD Work Phone: [facility] 10-03-2023 06:57-0400 Body weight 52.2 kg Ramiro Hugo MD Work Phone: [facility] 09-29-2023 14:35-0400 Body height 160 cm Conor Duarte MD Work Phone: [facility] 09-29-2023 14:35-0400 Body mass index (BMI) [Ratio] 20.27 kg/m2 Conor Duarte MD Work Phone: [facility] 09-29-2023 14:35-0400 Body temperature 97.59 [degF] Conor Duarte MD Work Phone: [facility] 09-29-2023 14:35-0400 Body weight 51.89 kg Conor Duarte MD Work Phone: [facility] 09-29-2023 14:35-0400 Diastolic blood pressure 62 mm[Hg] Conor Duarte MD Work Phone: [facility] 09-29-2023 14:35-0400 Heart rate 88 /min Conor Duarte MD Work Phone: [facility] 09-29-2023 14:35-0400 SaO2% (BldA) [Mass fraction] 100 % Conor Duarte MD Work Phone: [facility] 09-29-2023 14:35-0400 Systolic blood pressure 100 mm[Hg] Conor Duarte MD Work Phone: [facility] 09-23-2023 11:41-0400 Body mass index (BMI) [Ratio] 19.84 kg/m2 Mary Jo Barnett MD Work Phone: [facility] 09-23-2023 11:41-0400 Body weight 50.8 kg Mary Jo Barnett MD Work Phone: [facility] 09-23-2023 11:41-0400 Diastolic blood pressure 60 mm[Hg] Mary Jo Barnett MD Work Phone: [facility] 09-23-2023 11:41-0400 Systolic blood pressure 100 mm[Hg] Mary Jo Barnett MD Work Phone: [facility] 09-18-2023 10:10-0400 Body height 160 cm Barbi Haury [employer].SEMICONDUCTOR WAFERS TESTER Work Phone: [facility] 09-18-2023 10:10-0400 Body mass index (BMI) [Ratio] 20.73 kg/m2 Barbi Haury [employer]ER.SEMICONDUCTOR WAFERS TESTER Work Phone: [facility] 09-18-2023 10:10-0400 Body weight 53.07 kg Barbi Haury [employer]ER.SEMICONDUCTOR WAFERS TESTER Work Phone: [facility] 09-18-2023 10:10-0400 Diastolic blood pressure 70 mm[Hg] Barbi Haury P[employer]ER.SEMICONDUCTOR WAFERS TESTER Work Phone: [facility] 09-18-2023 10:10-0400 Heart rate 78 /min Barbi Haury P[employer].SEMICONDUCTOR WAFERS TESTER Work Phone: [facility] 09-18-2023 10:10-0400 Respiratory rate 12 /min Barbi Haury P[employer]ER.SEMICONDUCTOR WAFERS TESTER Work Phone: [facility] 09-18-2023 10:10-0400 SaO2% (BldA) [Mass fraction] 98 % Barbi Haury P[employer]ER.SEMICONDUCTOR WAFERS TESTER Work Phone: [facility] 09-18-2023 10:10-0400 Systolic blood pressure 110 mm[Hg] Barbi Haury [employer]ER.SEMICONDUCTOR WAFERS TESTER Work Phone: [facility] 09-12-2023 10:36-0400 Body height 160 cm Mary Jo Barnett MD Work Phone: [facility] 09-12-2023 10:36-0400 Body mass index (BMI) [Ratio] 20.37 kg/m2 Mary Jo Barnett MD Work Phone: [facility] 09-12-2023 10:36-0400 Body weight 52.16 kg Mary Jo Barnett MD Work Phone: [facility] 09-12-2023 10:36-0400 Diastolic blood pressure 60 mm[Hg] Mary Jo Barnett MD Work Phone: [facility] 09-12-2023 10:36-0400 Heart rate 73 /min Mary Jo Barnett MD Work Phone: [facility] 09-12-2023 10:36-0400 SaO2% (BldA) [Mass fraction] 98 % Mary Jo Barnett MD Work Phone: [facility] 09-12-2023 10:36-0400 Systolic blood pressure 100 mm[Hg] Mary Jo Barnett MD Work Phone: [facility] 09-01-2023 09:19-0400 Body height 160 cm Pacc 1 Work Phone: [facility] 09-01-2023 09:19-0400 Body mass index (BMI) [Ratio] 21.08 kg/m2 Pacc 1 Work Phone: [facility] 09-01-2023 09:19-0400 Body temperature 97.9 [degF] Pacc 1 Work Phone: [facility] 09-01-2023 09:19-0400 Body weight 53.98 kg Pacc 1 Work Phone: [facility] 09-01-2023 09:19-0400 Diastolic blood pressure 60 mm[Hg] Pacc 1 Work Phone: [facility] 09-01-2023 09:19-0400 Heart rate 66 /min Pacc 1 Work Phone: [facility] 09-01-2023 09:19-0400 Respiratory rate 14 /min Pacc 1 Work Phone: [facility] 09-01-2023 09:19-0400 SaO2% (BldA) [Mass fraction] 100 % Pacc 1 Work Phone: [facility] 09-01-2023 09:19-0400 Systolic blood pressure 96 mm[Hg] Pacc 1 Work Phone: [facility] 08-21-2023 11:35-0400 Body height 160 cm Ramiro Hugo MD Work Phone: [facility] 08-21-2023 11:35-0400 Body mass index (BMI) [Ratio] 21.79 kg/m2 Ramiro Hugo MD Work Phone: [facility] 08-21-2023 11:35-0400 Body weight 55.79 kg Ramiro Hugo MD Work Phone: [facility] 08-21-2023 11:35-0400 Diastolic blood pressure 63 mm[Hg] Ramiro Hugo MD Work Phone: [facility] 08-21-2023 11:35-0400 Heart rate 75 /min Ramiro Hugo MD Work Phone: [facility] 08-21-2023 11:35-0400 SaO2% (BldA) [Mass fraction] 98 % Ramiro Hugo MD Work Phone: [facility] 08-21-2023 11:35-0400 Systolic blood pressure 98 mm[Hg] Ramiro Hugo MD Work Phone: [facility] 08-20-2023 09:23-0400 Body mass index (BMI) [Ratio] 20.9 kg/m2 Mary Jo Barnett MD Work Phone: [facility] 08-20-2023 09:23-0400 Body weight 53.52 kg Mary Jo Barnett MD Work Phone: [facility] 08-20-2023 09:23-0400 Diastolic blood pressure 60 mm[Hg] Mary Jo Barnett MD Work Phone: [facility] 08-20-2023 09:23-0400 Systolic blood pressure 94 mm[Hg] Mary Jo Barnett MD Work Phone: [facility] 08-19-2023 15:47-0400 Body mass index (BMI) [Ratio] 21.12 kg/m2 Sandra Kelsey [employer] Work Phone: [facility] 08-19-2023 15:47-0400 Body weight 54.07 kg Sandra Kelsey [employer] Work Phone: [facility] 08-19-2023 15:47-0400 Diastolic blood pressure 58 mm[Hg] Sandra Kelsey [employer] Work Phone: [facility] 08-19-2023 15:47-0400 Systolic blood pressure 98 mm[Hg] Sandra Kelsey [employer] Work Phone: [facility] 08-18-2023 08:21-0400 Body mass index (BMI) [Ratio] 21.26 kg/m2 Sandra [place] [employer] Work Phone: [facility] 08-18-2023 08:21-0400 Body weight 54.43 kg Sandra [place] [employer] Work Phone: [facility] 08-18-2023 08:21-0400 Diastolic blood pressure 64 mm[Hg] Sandra Kelsey [employer] Work Phone: [facility] 08-18-2023 08:21-0400 Systolic blood pressure 100 mm[Hg] Sandra Kelsey [employer] Work Phone: [facility] 07-31-2023 15:04-0400 Body height 160 cm Rachell Queden [employer] Work Phone: [facility] 07-31-2023 15:04-0400 Body mass index (BMI) [Ratio] 20.73 kg/m2 Rachell Queden [employer] Work Phone: [facility] 07-31-2023 15:04-0400 Body temperature 97.9 [degF] Rachell Queden [employer] Work Phone: [facility] 07-31-2023 15:04-0400 Body weight 53.07 kg Rachell Queden [employer] Work Phone: [facility] 07-31-2023 15:04-0400 Diastolic blood pressure 62 mm[Hg] Rachell Queden [employer] Work Phone: [facility] 07-31-2023 15:04-0400 Heart rate 73 /min Rachell Queden [employer] Work Phone: [facility] 07-31-2023 15:04-0400 Respiratory rate 16 /min Rachell Queden [employer] Work Phone: [facility] 07-31-2023 15:04-0400 SaO2% (BldA) [Mass fraction] 98 % Rachell Queden [employer] Work Phone: [facility] 07-31-2023 15:04-0400 Systolic blood pressure 102 mm[Hg] Rachell Queden [employer] Work Phone: [facility] 07-24-2023 10:49-0400 Body mass index (BMI) [Ratio] 21.43 kg/m2 Gino Valero [employer].CNM Work Phone: [facility] 07-24-2023 10:49-0400 Body weight 54.88 kg Gino Valero [employer].CNM Work Phone: [facility] 07-24-2023 10:49-0400 Diastolic blood pressure 64 mm[Hg] Gino Plotts [employer].CNM Work Phone: [facility] 07-24-2023 10:49-0400 Systolic blood pressure 100 mm[Hg] Gino Plotts [employer].CNM Work Phone: [facility] 07-02-2023 13:26-0400 Body height 160 cm Mitra Reed [employer] Work Phone: [facility] 07-02-2023 13:26-0400 Body mass index (BMI) [Ratio] 20.37 kg/m2 Mitra Reed APRN.[employer] Work Phone: [facility] 07-02-2023 13:26-0400 Body temperature 98.49 [degF] Mitra Reed APRN.[employer] Work Phone: [facility] 07-02-2023 13:26-0400 Body weight 52.16 kg Mitra Reed APRN.[employer] Work Phone: [facility] 07-02-2023 13:26-0400 Diastolic blood pressure 60 mm[Hg] Mitra Reed APRN.[employer] Work Phone: [facility] 07-02-2023 13:26-0400 Heart rate 87 /min Mitra Reed APRN.[employer] Work Phone: [facility] 07-02-2023 13:26-0400 SaO2% (BldA) [Mass fraction] 99 % Mitra Reed APRN.[employer] Work Phone: [facility] 07-02-2023 13:26-0400 Systolic blood pressure 100 mm[Hg] Mitra Reed APRN.[employer] Work Phone: [facility] 07-02-2023 08:13-0400 Body height 159.7 cm Miki Jaramillo MD Work Phone: [facility] 07-02-2023 08:13-0400 Body mass index (BMI) [Ratio] 20.6 kg/m2 Miki Jaramillo MD Work Phone: [facility] 07-02-2023 08:13-0400 Body temperature 97.3 [degF] Miki Jaramillo MD Work Phone: [facility] 07-02-2023 08:13-0400 Body weight 52.53 kg Miki Jaramillo MD Work Phone: [facility] 07-02-2023 08:13-0400 Diastolic blood pressure 69 mm[Hg] Miki Jaramillo MD Work Phone: [facility] 07-02-2023 08:13-0400 Heart rate 86 /min Miki Jaramillo MD Work Phone: [facility] 07-02-2023 08:13-0400 Respiratory rate 16 /min Miki Jaramillo MD Work Phone: [facility] 07-02-2023 08:13-0400 SaO2% (BldA) [Mass fraction] 99 % Miki Jaramillo MD Work Phone: [facility] 07-02-2023 08:13-0400 Systolic blood pressure 104 mm[Hg] Miki Jaramillo MD Work Phone: [facility] 06-26-2023 13:24-0400 Body mass index (BMI) [Ratio] 20.73 kg/m2 Prabhu Ortez MD Work Phone: [facility] 06-26-2023 13:24-0400 Body weight 53.07 kg Prabhu Ortez MD Work Phone: [facility] 06-26-2023 13:24-0400 Diastolic blood pressure 64 mm[Hg] Prabhu Ortez MD Work Phone: [facility] 06-26-2023 13:24-0400 Systolic blood pressure 102 mm[Hg] Prabhu Ortez MD Work Phone: [facility] 06-25-2023 13:56-0400 Diastolic blood pressure 86 mm[Hg] Norbert Noriega MD Work Phone: [facility] 06-25-2023 13:56-0400 Systolic blood pressure 102 mm[Hg] Norbert Noriega MD Work Phone: [facility] 06-25-2023 13:50-0400 Body height 160 cm Norbert Noriega MD Work Phone: [facility] 06-25-2023 13:50-0400 Body mass index (BMI) [Ratio] 20.9 kg/m2 Norbert Noriega MD Work Phone: [facility] 06-25-2023 13:50-0400 Body weight 53.52 kg Norbert Noriega MD Work Phone: [facility] 06-25-2023 13:50-0400 Heart rate 100 /min Norbert Noriega MD Work Phone: [facility] 06-25-2023 13:50-0400 SaO2% (BldA) [Mass fraction] 99 % Norbert Noriega MD Work Phone: [facility] 06-24-2023 22:01-0400 Diastolic blood pressure 77 mm[Hg] Rachell Queden [employer] Work Phone: [facility] 06-24-2023 22:01-0400 Heart rate 70 /min Rachell Queden [employer] Work Phone: [facility] 06-24-2023 22:01-0400 Respiratory rate 18 /min Rachell Queden [employer] Work Phone: [facility] 06-24-2023 22:01-0400 SaO2% (BldA) [Mass fraction] 98 % Rachell Queden [employer] Work Phone: [facility] 06-24-2023 22:01-0400 Systolic blood pressure 125 mm[Hg] Rachell Queden [employer] Work Phone: [facility] 06-24-2023 18:41-0400 Body height 160 cm Rachell Queden [employer] Work Phone: [facility] 06-24-2023 18:41-0400 Body mass index (BMI) [Ratio] 20.73 kg/m2 Rachell Queden [employer] Work Phone: [facility] 06-24-2023 18:41-0400 Body temperature 97.39 [degF] Rachell Queden [employer] Work Phone: [facility] 06-24-2023 18:41-0400 Body weight 53.07 kg Rachell Amador [employer] Work Phone: [facility] 06-22-2023 09:33-0400 Body height 160.02 cm [facility] 06-22-2023 09:33-0400 Body mass index (BMI) [Ratio] 22.2 kg/m2 [facility] 06-22-2023 09:33-0400 Body temperature 97.3 [degF] [facility] 06-22-2023 09:33-0400 Body weight 57 kg [facility] 06-22-2023 09:33-0400 Diastolic blood pressure 90 mm[Hg] [facility] 06-22-2023 09:33-0400 Heart rate 81 /min [facility] 06-22-2023 09:33-0400 Respiratory rate 16 /min [facility] 06-22-2023 09:33-0400 SaO2% (BldA) [Mass fraction] 99 % [facility] 06-22-2023 09:33-0400 Systolic blood pressure 120 mm[Hg] [facility] 06-21-2023 09:30-0400 Diastolic blood pressure 72 mm[Hg] Saturnino Velázquez DO Work Phone: [facility] 06-21-2023 09:30-0400 Heart rate 78 /min Saturnino Velázquez DO Work Phone: [facility] 06-21-2023 09:30-0400 Respiratory rate 16 /min Saturnino Velázquez DO Work Phone: [facility] 06-21-2023 09:30-0400 SaO2% (BldA) [Mass fraction] 100 % Saturnino Velázquez DO Work Phone: [facility] 06-21-2023 09:30-0400 Systolic blood pressure 122 mm[Hg] Saturnino Velázquez DO Work Phone: [facility] 06-21-2023 08:19-0400 Body mass index (BMI) [Ratio] 22.32 kg/m2 Saturnino Vleázquez DO Work Phone: [facility] 06-21-2023 08:19-0400 Body weight 57.15 kg Saturnino Irbyasters DO Work Phone: [facility] 06-21-2023 08:17-0400 Body temperature 98.4 [degF] Saturnino Lemasters DO Work Phone: [facility] 06-20-2023 11:24-0400 Body temperature 97.2 [degF] Saturnino Lemasters DO Work Phone: [facility] 06-20-2023 11:24-0400 Diastolic blood pressure 53 mm[Hg] Saturnino Velázquez DO Work Phone: [facility] 06-20-2023 11:24-0400 Heart rate 92 /min Saturnino Velázquez DO Work Phone: [facility] 06-20-2023 11:24-0400 Respiratory rate 16 /min Saturnino Velázquez DO Work Phone: [facility] 06-20-2023 11:24-0400 SaO2% (BldA) [Mass fraction] 96 % Saturnino Velázquez DO Work Phone: [facility] 06-20-2023 11:24-0400 Systolic blood pressure 90 mm[Hg] Saturnino Velázquez DO Work Phone: [facility] 06-20-2023 03:29-0400 Body height 160 cm Saturnion Velázquez DO Work Phone: [facility] 06-20-2023 03:29-0400 Body mass index (BMI) [Ratio] 22.38 kg/m2 Saturnino Irbyasters DO Work Phone: [facility] 06-20-2023 03:29-0400 Body weight 57.3 kg Saturnino Velázquez DO Work Phone: [facility] 06-18-2023 18:05-0400 Diastolic blood pressure 68 mm[Hg] Saturnino Velázquez DO Work Phone: [facility] 06-18-2023 18:05-0400 Heart rate 50 /min Saturnino Velázquez DO Work Phone: [facility] 06-18-2023 18:05-0400 Respiratory rate 18 /min Saturnino Velázquez DO Work Phone: [facility] 06-18-2023 18:05-0400 SaO2% (BldA) [Mass fraction] 100 % Saturnino Velázquez DO Work Phone: [facility] 06-18-2023 18:05-0400 Systolic blood pressure 107 mm[Hg] Saturnino Velázquez DO Work Phone: [facility] 06-18-2023 17:21-0400 Body height 160 cm Saturnino Velázquez DO Work Phone: [facility] 06-18-2023 17:21-0400 Body mass index (BMI) [Ratio] 21.79 kg/m2 Saturnino Velázquez DO Work Phone: [facility] 06-18-2023 17:21-0400 Body temperature 97.81 [degF] Saturnino Velázquez DO Work Phone: [facility] 06-18-2023 17:21-0400 Body weight 55.79 kg Saturnino Velázquez DO Work Phone: [facility] 06-17-2023 11:30-0400 Diastolic blood pressure 65 mm[Hg] Alla Llanes MD Work Phone: [facility] 06-17-2023 11:30-0400 Heart rate 68 /min Alla Llanes MD Work Phone: [facility] 06-17-2023 11:30-0400 Respiratory rate 16 /min Alla Llanes MD Work Phone: [facility] 06-17-2023 11:30-0400 SaO2% (BldA) [Mass fraction] 100 % Alla Llanes MD Work Phone: [facility] 06-17-2023 11:30-0400 Systolic blood pressure 105 mm[Hg] Alla Llanes MD Work Phone: [facility] 06-17-2023 10:33-0400 Body temperature 96.69 [degF] Alla Llanes MD Work Phone: 0(357)[phone] [place] [address] 06-17-2023 08:42-0400 Body height 160 cm Alla Llanes MD Work Phone: 8(504)[phone] [place] [address] 06-17-2023 08:42-0400 Body mass index (BMI) [Ratio] 21.95 kg/m2 Alla Llanes MD Work Phone: 1(999)688-981271 [place] [address] 06-17-2023 08:42-0400 Body weight 56.2 kg Alla Llanes MD Work Phone: 9(307)[phone] [place] [address] 06-03-2023 14:08-0400 Body height 160 cm Alla Llanes MD Work Phone: 6(167)[phone] [place] [address] 06-03-2023 14:08-0400 Diastolic blood pressure 58 mm[Hg] Alla Llanes MD Work Phone: [facility] 06-03-2023 14:08-0400 Heart rate 90 /min Alla Llanes MD Work Phone: 1(701)[phone] [place] [address] 06-03-2023 14:08-0400 Systolic blood pressure 98 mm[Hg] Alla Llanes MD Work Phone: [facility] 06-03-2023 10:49-0400 Body height 160 cm Rachell Amador APRN.[employer] Work Phone: [facility] 06-03-2023 10:49-0400 Body mass index (BMI) [Ratio] 23.03 kg/m2 Rachell Amador APRN.[employer] Work Phone: [facility] 06-03-2023 10:49-0400 Body temperature 98.01 [degF] Rachell Queden [employer] Work Phone: [facility] 06-03-2023 10:49-0400 Body weight 58.97 kg Rachell Queden [employer] Work Phone: [facility] 06-03-2023 10:49-0400 Diastolic blood pressure 62 mm[Hg] Rachell Queden [employer] Work Phone: [facility] 06-03-2023 10:49-0400 Heart rate 78 /min Rachell Queden [employer] Work Phone: [facility] 06-03-2023 10:49-0400 Respiratory rate 18 /min Rachell Queden [employer] Work Phone: [facility] 06-03-2023 10:49-0400 SaO2% (BldA) [Mass fraction] 97 % Rachell Queden [employer] Work Phone: [facility] 06-03-2023 10:49-0400 Systolic blood pressure 104 mm[Hg] Rachell Queden [employer] Work Phone: [facility] 04-23-2023 13:57-0400 Body weight 54.88 kg Gino Plotts [employer]CNM Work Phone: [facility] 04-23-2023 13:57-0400 Diastolic blood pressure 70 mm[Hg] Gino Plotts [employer]CNM Work Phone: [facility] 04-23-2023 13:57-0400 Systolic blood pressure 108 mm[Hg] Gino Plotts [employer]CNM Work Phone: [facility] 01-30-2023 12:14-0500 Body height 160 cm Prabhu Ortez MD Work Phone: [facility] 01-30-2023 12:14-0500 Body weight 63.5 kg Prabhu Ortez MD Work Phone: [facility] 01-30-2023 12:14-0500 Diastolic blood pressure 72 mm[Hg] Prabhu Ortez MD Work Phone: [facility] 01-30-2023 12:14-0500 Systolic blood pressure 114 mm[Hg] Prabhu Ortez MD Work Phone: [facility] 12-03-2022 14:41-0400 Body weight 70.85 kg Prabhu Ortez MD Work Phone: [facility] 12-03-2022 14:41-0400 Diastolic blood pressure 68 mm[Hg] Prabhu Ortez MD Work Phone: [facility] 12-03-2022 14:41-0400 Systolic blood pressure 108 mm[Hg] Prabhu Ortez MD Work Phone: [facility] 11-19-2022 15:48-0400 Body weight 68.4 kg Prabhu Ortez MD Work Phone: [facility] 11-19-2022 15:48-0400 Diastolic blood pressure 68 mm[Hg] Prabhu Ortez MD Work Phone: [facility] 11-19-2022 15:48-0400 Systolic blood pressure 106 mm[Hg] Prabhu Ortez MD Work Phone: [facility] 11-18-2022 13:14-0400 Body weight 67.5 kg Jaquelin Hi APRN.CNM Work Phone: [facility] 11-18-2022 13:14-0400 Diastolic blood pressure 62 mm[Hg] Jaquelin Hi [employer].CNM Work Phone: [facility] 11-18-2022 13:14-0400 Systolic blood pressure 98 mm[Hg] Jaquelin Hi [employer].CNM Work Phone: [facility] 08-29-2022 17:57-0400 Diastolic blood pressure 71 mm[Hg] [facility] 08-29-2022 17:57-0400 Heart rate 72 /min [facility] 08-29-2022 17:57-0400 Respiratory rate 15 /min [facility] 08-29-2022 17:57-0400 SaO2% (BldA) [Mass fraction] 98 % [facility] 08-29-2022 17:57-0400 Systolic blood pressure 108 mm[Hg] [facility] 08-29-2022 15:30-0400 Body height 160.02 cm [facility] 08-29-2022 15:30-0400 Body mass index (BMI) [Percentile] Per age and sex 70.6 % [facility] 08-29-2022 15:30-0400 Body mass index (BMI) [Ratio] 23.8 kg/m2 [facility] 08-29-2022 15:30-0400 Body temperature 96.8 [degF] [facility] 08-29-2022 15:30-0400 Body weight 61.1 kg [facility] 08-17-2022 13:28-0400 Heart rate 78 /min [facility] 08-17-2022 13:28-0400 Respiratory rate 18 /min [facility] 08-17-2022 13:28-0400 SaO2% (BldA) [Mass fraction] 98 % [facility] 08-17-2022 10:15-0400 Body height 160.02 cm [facility] 08-17-2022 10:15-0400 Body temperature 97.1 [degF] [facility] 08-17-2022 10:15-0400 Diastolic blood pressure 58 mm[Hg] [facility] 08-17-2022 10:15-0400 Systolic blood pressure 102 mm[Hg] [facility] 07-12-2022 19:15-0400 Diastolic blood pressure 66 mm[Hg] No Pcp Required [facility] 07-12-2022 19:15-0400 Heart rate 91 /min No Pcp Required [facility] 07-12-2022 19:15-0400 Respiratory rate 16 /min No Pcp Required [facility] 07-12-2022 19:15-0400 SaO2% (BldA) [Mass fraction] 100 % No Pcp Required [facility] 07-12-2022 19:15-0400 Systolic blood pressure 110 mm[Hg] No Pcp Required [facility] 07-12-2022 15:29-0400 Body height 160 cm No Pcp Required [facility] 07-12-2022 15:29-0400 Body temperature 97.52 [degF] No Pcp Required [facility] 07-12-2022 15:29-0400 Body weight 54.5 kg No Pcp Required [facility] 11-12-2021 19:03-0400 Body temperature 98.6 [degF] Leeann Silva [employer] Work Phone: [facility] 11-12-2021 19:03-0400 Body weight 54.34 kg Leeann Silva [employer] Work Phone: [facility] 11-12-2021 19:03-0400 Diastolic blood pressure 82 mm[Hg] Leeann Silva [employer] Work Phone: [facility] 11-12-2021 19:03-0400 Heart rate 87 /min Leeann Silva [employer] Work Phone: [facility] 11-12-2021 19:03-0400 Respiratory rate 18 /min Leeann Silva [employer] Work Phone: [facility] 11-12-2021 19:03-0400 SaO2% (BldA) [Mass fraction] 100 % Leeann Ascencio [employer] Work Phone: [facility] 11-12-2021 19:03-0400 Systolic blood pressure 116 mm[Hg] Leeann Silva [employer] Work Phone: [facility] 08-14-2021 11:47-0400 Body temperature 98.29 [degF] Steven Bob [employer] Work Phone: [facility] 08-14-2021 11:47-0400 Body weight 49.9 kg Steven Rojas [employer] Work Phone: [facility] 08-14-2021 11:47-0400 Diastolic blood pressure 72 mm[Hg] Steven Rojas [employer] Work Phone: [facility] 08-14-2021 11:47-0400 Heart rate 80 /min Steven Pendleannbury PIPE STEM SAWYER.SEMICONDUCTOR WAFERS TESTER Work Phone: [facility] 08-14-2021 11:47-0400 Respiratory rate 18 /min Steven Tricebury PIPE STEM SAWYER.SEMICONDUCTOR WAFERS TESTER Work Phone: [facility] 08-14-2021 11:47-0400 SaO2% (BldA) [Mass fraction] 99 % Steven Tricebury PIPE STEM SAWYER.SEMICONDUCTOR WAFERS TESTER Work Phone: [facility] 08-14-2021 11:47-0400 Systolic blood pressure 102 mm[Hg] Steven Pendlebury PIPE STEM SAWYER.SEMICONDUCTOR WAFERS TESTER Work Phone: [facility] 03-21-2021 19:30-0500 Diastolic blood pressure 64 mm[Hg] No Pcp Required [facility] [place] 03-21-2021 19:30-0500 Heart rate 68 /min No Pcp Required [facility] [place] 03-21-2021 19:30-0500 Respiratory rate 16 /min No Pcp Required [facility] [place] 03-21-2021 19:30-0500 SaO2% (BldA) [Mass fraction] 96 % No Pcp Required [facility] [place] 03-21-2021 19:30-0500 Systolic blood pressure 112 mm[Hg] No Pcp Required [facility] [place] 03-21-2021 14:50-0500 Body height 160 cm No Pcp Required [facility] [place] 03-21-2021 14:50-0500 Body temperature 98.78 [degF] No Pcp Required [facility] [place] 03-21-2021 14:50-0500 Body weight 50.5 kg No Pcp Required [facility] [place] Encounters Encounter Date Encounter Type Care Provider Facility Start: 10-05-2024 End: 10-05-2024 ambulatory Joyce Huston MA [facility] Comment on above: Labs Needed Start: 10-05-2024 End: 10-05-2024 E-mail encounter from caregiver Sheila Pfeiffer RN BLOOD MANAGEMENT Start: 10-05-2024 End: 10-05-2024 Patient encounter procedure Joyce Huston MA [facility] Comment on above: Population Health Na vigation [...] Start: 09-28-2024 End: 09-28-2024 ambulatory RACHELL AMADOR Facility:[facility] Start: 09-23-2024 End: 09-23-2024 Follow-up encounter Barbi Tian APRN.CNP Work Phone: OB/Gynecology Start: 2024 End: 2024 ambulatory RACHELL AMADOR Facility:[facility] Start: 2024 End: 2024 Patient [...] Start: 09-19-2024 End: 09-19-2024 ambulatory Rachell Amador DIGITAL HARDWARE DESIGN ENGINEER-C Work Phone: [facility] Start: 09-19-2024 End: 09-19-2024 Patient encounter procedure Jaquelin Hi CNM -[facility] Work Phone: Start: 09-17-2024 End: 09-17-2024 ambulatory BARBI CASSY Facility:[facility] Start: 09-16-2024 End: 09-16-2024 ambulatory RACHELL AMADOR Facility:[facility] Start: 09-11-2024 End: 09-11-2024 ambulatory PHYSICIAN [facility] Start: 09-10-2024 End: 09-10-2024 ambulatory Yamila Ballard MD Work Phone: OB/Gynecology Comment on above: UTI Start: 09-09-2024 End: 09-09-2024 ambulatory RIO KELLY [facility] Start: 09-09-2024 End: 09-09-2024 Subsequent hospital visit by physician Rio Kelly DO Work Phone: [facility] Start: 09-09-2024 End: 09-09-2024 Telephone encounter Jaquelin Hi APRN.CNM Work Phone: OB/Gynecology Comment on above: Care Start: 09-09-2024 End: 09-09-2024 ambulatory Rachell Amador DIGITAL HARDWARE DESIGN ENGINEER-C Work Phone: -[facility] Start: 09-09-2024 End: 09-09-2024 Patient encounter procedure Jaquelin Hi CNM -[facility] Work Phone: Start: 09-08-2024 End: 09-08-2024 ambulatory RACHELL AMADOR Facility:[facility] Start: 09-08-2024 End: 09-08-2024 Patient encounter procedure Gino Valero APRN.CNM Work Phone: OB/Gynecology Comment on above: 35 weeks gestation o f (HCC) (Primary Dx); Irregular uterine contractions (HCC); Supervision of high risk in third trimester (HCC) Start: 09-07-2024 End: 09-08-2024 ambulatory Rachell Amador DIGITAL HARDWARE DESIGN ENGINEER-C Work Phone: -[facility] Start: 09-07-2024 End: 09-07-2024 ambulatory YAMILA BALLARD Facility:[facility] Start: 09-07-2024 End: 09-08-2024 Patient encounter procedure Shanice Whittington 1 Chief Security Officer [facility] Comment on above: Encounter for ultras ound to check growth (HCC) (Primary Dx); History of shoulder dystocia in prior ; 34 weeks gestation of (HCC) Supervision of high risk in third trimester (HCC) (Primary Dx); 34 weeks gestation of (HCC); History of shoulder dystocia in prior Start: 09-04-2024 End: 09-04-2024 [facility]ulatory [facility] Start: 08-24-2024 End: 08-24-2024 ambulatory [facility] [place] [facility] Comment on above: Maternal iron defici ency anemia complicating , third trimester (HCC) (Primary Dx) Start: 08-24-2024 End: 08-24-2024 ambulatory RACHELL AMADOR Facility:[facility] Start: 08-24-2024 End: 08-24-2024 Patient encounter procedure Prabhu Ortez MD Work Phone: OB/Gynecology Comment on above: Supervision of high risk in third trimester (HCC) (Primary Dx); Thrombocytopenia affecting (HCC); History of shoulder dystocia in prior ; Antepartum anemia complicating in third trimester (HCC); Paroxysmal SVT (supraventricular tachycardia) (HCC); 32 weeks gestation of (HCC) Start: 08-20-2024 End: 08-20-2024 ambulatory [facility] [place] [facility]USION Comment on above: Maternal iron defici ency anemia complicating , third trimester (HCC) (Primary Dx) Start: 08-17-2024 End: 08-17-2024 ambulatory [facility] [place] [facility] INFUSION Comment on above: Maternal iron defici ency anemia complicating , third trimester (HCC) (Primary Dx) Start: 08-12-2024 End: 08-12-2024 ambulatory [facility] [place] [facility] INFUSION Comment on above: Maternal iron defici ency anemia complicating , third trimester (HCC) (Primary Dx) Start: 08-10-2024 End: 08-10-2024 ambulatory RACHELL AMADOR Facility:[facility] Start: 08-10-2024 End: 08-10-2024 Patient encounter procedure Prabhu Ortez MD Work Phone: OB/Gynecology Comment on above: Supervision of high risk in third trimester (HCC) (Primary Dx); Thrombocytopenia affecting (HCC); Antepartum anemia complicating in third trimester (HCC); History of shoulder dystocia in prior ; Paroxysmal SVT (supraventricular tachycardia) ([facility]) Start: 08-05-2024 End: 08-05-2024 ambulatory RACHELL AMADOR Facility:[facility] Start: 08-05-2024 End: 08-05-2024 Patient [...] Start: 08-03-2024 End: 08-03-2024 ambulatory Rachell Amador DIGITAL HARDWARE DESIGN ENGINEER-C Work Phone: [facility] Work Phone: Start: 08-03-2024 End: 08-18-[address] Prabhu Ortez [facility] Work Phone: Comment on above: Blood Management Rico ointment Start: 08-03-2024 End: 08-03-2024 ambulatory [facility] Amb[facility] Start: 08-03-2024 End: 08-03-2024 Office outpatient visit 25 minutes Ramiro Hugo MD Work Phone: [facility] Building Comment on above: SVT (supraventricula r tachycardia) Start: 08-01-2024 End: 08-03-2024 ambulatory Jaquelin Hi SHAHNAZM Work Phone: OB/Gynecology Comment on above: Preeclampsia Start: 07-28-2024 End: 09-27-2024 Follow-up encounter Yamila Ballard MD Work Phone: OB/Gynecology Start: 07-28-2024 End: 07-28-2024 Telephone encounter Nurse Chief Security Officer [place] Work Phone: Obstetrics/Gynecology Comment on above: PRAF [...] third trimester (HCC) Start: 07-27-2024 End: 07-27-2024 [facility] Facility:[facility] Start: 06-29-2024 End: 06-29-2024 [facility] Facility:[facility] Start: 06-02-2024 End: 06-02-2024 Telephone encounter Nurse Chief Security Officer [place] Work Phone: Obstetrics/Gynecology Comment on above: PRAF Start: 06-01-2024 End: 06-01-2024 Patient encounter procedure Whi Tech 1 Chief Security Officer [facility] Comment on above: Encounter for anatomic survey (HCC) (Primary Dx); 20 weeks gestation of (HCC) Supervision of other high risk pregnancies, second trimester (HCC) (Primary Dx); 20 weeks gestation of (HCC); History of shoulder dystocia in prior ; Rh negative state in antepartum period (HCC) Start: 06-01-2024 End: 06-01-2024 ambulatory [facility] Facility:[facility] Start: 05-10-2024 End: 05-11-2024 Telephone encounter Prabhu Ortez MD Work Phone: OB/Gynecology Comment on above: Breast Pump RX Start: 05-04-2024 End: 05-04-2024 [facility] Facility:[facility] Start: 05-04-2024 End: 05-04-2024 Patient [...] in antepartum period Start: 04-07-2024 End: 04-07-2024 [facility] Facility:[facility] Start: 04-07-2024 End: 04-07-2024 Patient encounter procedure Whi Tech 1 Chief Security Officer [facility] Comment on above: Encounter for [facility] screening for malformation using ultrasound (Primary Dx); 13 weeks gestation of Supervision of other high risk pregnancies, second trimester (Primary Dx); 13 weeks gestation of ; Nausea and vomiting in ; History of cardiac radiofrequency ablation; History of pulmonary embolism; History of shoulder dystocia in prior ; History of depression; Rh negative state in antepartum period Start: 04-07-2024 End: 04-07-2024 [facility] Facility:[facility] Start: 03-16-2024 End: 03-16-2024 [facility] Facility:[facility] Start: 03-16-2024 End: 03-16-2024 Patient encounter procedure Jaquelin Hi APRN.CNM Work Phone: OB/Gynecology Comment on above: Supervision of other high risk pregnancies, first trimester (Primary Dx); History of pulmonary embolism; Nausea and vomiting in Start: 03-11-2024 End: 03-11-2024 Telephone encounter Chantelle Rodriguez RN Maternal Medic ine Comment on above: Fisher Trammel Net - O ther (PRAF) Start: 03-10-2024 End: 03-10-2024 Emergency department patient visit [facility] Facility:[facility] Start: 03-09-2024 End: 03-09-2024 ambulatory RACHELL AMADOR Facility:[facility] Start: 03-09-2024 End: 03-09-2024 Patient encounter procedure Jaquelin Mateo ROY Work Phone: OB/Gynecology Comment on above: with [...] 02-26-2024 ambulatory Rachell Amador APRN.CNP Work Phone: [facility] Comment on above: ER F/U ([facility] 02/18/2024) Start: 02-19-2024 End: 02-19-2024 ambulatory Mary Jo Barnett MD Work Phone: OB/Gynecology Comment on above: ED visit 02/18/24 Start: 02-18-2024 End: 02-18-2024 Emergency department patient visit RACHELL AMADOR [facility] [place] Emergency Medicine Comment on above: Urinary tract infect ion in mother during first trimester of ([facility]) (Primary Dx); Hypoglycemia; Nausea vomiting and diarrhea Start: 01-27-2024 End: 01-27-2024 Office outpatient visit 25 minutes Ramiro Hugo MD Work Phone: [facility] Building 3 Comment on above: SVT (supraventricula r tachycardia) ([facility]-HCC) (Primary Dx); Atrial fibrillation, unspecified type (Multi); Palpitations Start: 01-27-2024 End: 01-27-2024 ambulatory RAMIRO HUGO [facility] Start: 12-26-2023 End: 12-26-2023 ambulatory RACHELL AMADOR Facility:[facility] Start: 12-26-2023 Encounter for genera l adult medical examination without abnormal findings RACHELL AMADOR [facility] Start: 12-26-2023 End: 12-26-2023 Patient encounter procedure Rachell Amador PIPE STEM SAWYER.SEMICONDUCTOR WAFERS TESTER Work Phone: [facility] Comment on above: Well adult exam (Tania miki Dx); Paroxysmal SVT (supraventricular tachycardia) (HCC); Palpitations Start: 12-26-2023 End: 12-26-2023 Patient encounter status Rachell Amador PIPE STEM SAWYER.SEMICONDUCTOR WAFERS TESTER Work Phone: [facility] Work Phone: Start: 12-10-2023 End: 12-10-2023 ambulatory [facility] Start: 12-10-2023 End: 12-10-2023 Office outpatient visit 15 minutes Norbert Noriega MD Work Phone: [facility] Office Building Comment on above: Single subsegmental pulmonary embolism without acute cor pulmonale (Primary Dx); SVT (supraventricular tachycardia) ([facility]-HCC) Start: 11-24-2023 End: 11-24-2023 ambulatory RACHELL AMADOR Facility:[facility] Start: 11-24-2023 End: 11-24-2023 Patient encounter procedure Sandra Sutherlandcalf PIPE STEM SAWYER.SEMICONDUCTOR WAFERS TESTER Work Phone: OB/Gynecology Comment on above: Vaginal discharge (P rimary Dx) Start: 10-16-2023 End: 10-16-2023 ambulatory Faiza Pack PIPE STEM SAWYER.SEMICONDUCTOR WAFERS TESTER Work Phone: Gastroenterology Comment on above: Diarrhea due to usha bsorption (Primary Dx); Status post laparoscopic cholecystectomy Start: 10-16-2023 End: 10-16-2023 Telemedicine consultation with patient Faiza Pack PIPE STEM SAWYER.SEMICONDUCTOR WAFERS TESTER Work Phone: Gastroenterology Start: 10-03-2023 End: 10-03-2023 Subsequent hospital visit by physician Ramiro Hugo MD Work Phone: [facility] Comment on above: SVT (supraventricula r tachycardia) (CMS-HCC) (Primary Dx); Palpitations Start: 09-29-2023 End: 09-29-2023 Patient encounter procedure Conor Duarte MD Work Phone: General Surgery Comment on above: Status post laparosc opic cholecystectomy (Primary Dx); Functional diarrhea Start: 09-26-2023 End: 09-26-2023 ambulatory [facility] Y[facility]NA [facility] Start: 09-23-2023 End: 09-23-2023 Patient encounter procedure Mary Jo Barnett MD Work Phone: OB/Gynecology Comment on above: Post-operative state (Primary Dx); Functional diarrhea Start: 09-18-2023 End: 09-18-2023 Patient encounter procedure Barbi Tian APRN.SEMICONDUCTOR WAFERS TESTER Work Phone: OB/Gynecology Comment on above: Post-op pain (Primar y Dx); Constipation, unspecified constipation type; Excessive bleeding in premenopausal period Start: 09-17-2023 ambulatory Mary Jo Barnett MD Work Phone: OB/Gynecology Comment on above: Incision sites Start: 09-16-2023 Telephone encounter Mary Jo Barnett MD Work Phone: OB/Gynecology Comment on above: Post Op Start: 09-15-2023 End: 09-15-2023 ambulatory [facility] Mario [facility] Facility:[facility] Start: 09-12-2023 End: 09-12-2023 Patient encounter procedure Mary Jo Barnett MD Work Phone: OB/Gynecology Comment on above: Malpositioned intrau terine device (IUD), sequela (Primary Dx); Pre-op exam Start: 09-12-2023 End: 09-12-2023 Preprocedural examination done Mary Jo Barnett MD Work Phone: [facility] Start: 09-10-2023 Refill Sandra Cole APRN.SEMICONDUCTOR WAFERS TESTER Work Phone: OB/Gynecology Comment on above: Med Change Request Start: 09-03-2023 End: 09-03-[address] [facility] Start: 09-02-2023 Telephone encounter Joyce isaac PA-C Work Phone: Pre Anesthesia Comment on above: Preparations For José Miguel ember Start: 09-01-2023 End: 09-01-2023 PAT [facility] [place] [facility] Work Phone: Pre Anesthesia Comment on above: Preoperative examina tion (Primary Dx); Single subsegmental pulmonary embolism without acute cor pulmonale (HCC); Vapes nicotine containing substance; Marijuana use; Generalized anxiety disorder; Depression, unspecified depression type; Paroxysmal SVT (supraventricular tachycardia) (HCC) Start: 09-01-2023 End: 09-01-2023 Preprocedural examination done [facility] [place] Work Phone: [facility] Work Phone: Start: 08-26-2023 Telephone encounter Rachell Amador APRN.CNP Work Phone: [facility] Comment on above: Results Start: 08-25-2023 End: 08-25-2023 Subsequent hospital visit by physician Card/Pulm Lab [facility] PULMONARY TESTING Comment on above: Paroxysmal SVT (supr aventricular tachycardia) (HCC) [I47.10] Start: 08-21-2023 End: 08-21-2023 Office outpatient new 60 minutes Ramiro Hugo MD Work Phone: [facility] Comment on above: Pulmonary embolism ( Multi) (Primary Dx); SVT (supraventricular tachycardia) (CMS-HCC); Palpitations Start: 08-21-2023 End: 08-21-2023 ambulatory RAMIRO [facility] Ambulatory Start: 08-20-2023 End: 08-20-2023 Subsequent hospital visit by physician Xr [facility] [place] [facility] Work Phone: Radiology Comment on above: Malpositioned IUD, s equela [T83.32XS] Start: 08-20-2023 End: 08-20-2023 Patient encounter procedure Mary Jo Barnett MD Work Phone: OB/Gynecology Comment on above: Pelvic pain in femal e (Primary Dx); Malpositioned IUD, sequela Start: 08-19-2023 End: 08-19-2023 Patient encounter procedure Sandra Cole PIPE STEM SAWYER.SEMICONDUCTOR WAFERS TESTER Work Phone: OB/Gynecology Comment on above: Encounter for IUD re moval (Primary Dx); Malpositioned intrauterine device (IUD), initial encounter Start: 08-19-2023 End: 08-19-2023 ambulatory [facility] OB/Gynecology Start: 08-19-2023 End: 08-19-2023 Patient encounter procedure Whi Tech 1 Chief Security Officer [facility] OB/Gynecology Start: 08-19-2023 Telephone encounter Sandra Nick mcmahan PIPE STEM SAWYER.SEMICONDUCTOR WAFERS TESTER Work Phone: OB/Gynecology Comment on above: Results Start: 08-18-2023 End: 08-18-2023 Patient encounter procedure Sandra Cole PIPE STEM SAWYER.SEMICONDUCTOR WAFERS TESTER Work Phone: OB/Gynecology Comment on above: Pelvic pain in femal e (Primary Dx); Intrauterine contraceptive device threads lost, initial encounter; Irregular bleeding Start: 08-17-2023 Refill Rachell Jackd en PIPE STEM SAWYER.SEMICONDUCTOR WAFERS TESTER Work Phone: [facility] Comment on above: Refill Request Start: 08-07-2023 Refill Dipti Freed DO Work Phone: Psychiatry Comment on above: Med Change Request Start: 07-31-2023 End: 07-31-2023 Patient encounter procedure Rachell Amador PIPE STEM SAWYER.SEMICONDUCTOR WAFERS TESTER Work Phone: [facility] Comment on above: Paroxysmal SVT (supr aventricular tachycardia) (HCC) (Primary Dx); Palpitations; Single subsegmental pulmonary embolism without acute cor pulmonale (HCC); On continuous oral anticoagulation; Engages in vaping Start: 07-24-2023 End: 07-24-2023 Patient encounter procedure Gino Valero PIPE STEM SAWYER.CNM Work Phone: OB/Gynecology Comment on above: Surveillance [...] Dx); anxiety Start: 07-09-2023 End: 07-09-2023 ambulatory [facility] Start: 07-09-2023 End: 07-09-2023 Subsequent hospital visit by physician Tylor Edwards [address] [facility] Comment on above: Single subsegmental pulmonary embolism without acute cor pulmonale (Multi); Other pulmonary embolism without acute cor pulmonale (Multi) Palpitations Start: 07-08-2023 End: 07-08-2023 Postop follow up visit related to original px Alla Llanes MD Work Phone: [facility] Comment on above: Postoperative visit (Primary Dx) Start: 07-04-2023 Refill Dipti Freed DO Work Phone: Psychiatry Comment on above: Med Change Request Start: 07-02-2023 End: 07-02-2023 Patient encounter procedure Mitra Reed APRN.CNP Work Phone: [facility] Comment on above: Nausea and vomiting, unspecified vomiting type (Primary Dx); S/P cholecystectomy; Single subsegmental pulmonary embolism without acute cor pulmonale (HCC); Vapes nicotine containing substance Start: 07-02-2023 End: 07-02-2023 ambulatory MIKI JARAMILLO [facility] Start: 07-02-2023 End: 07-02-2023 Office outpatient new 60 minutes Miki Jaramillo MD Work Phone: [facility] Medical Office Building [facility] Comment on above: Single subsegmental pulmonary embolism without acute cor pulmonale (Multi) Start: 06-26-2023 End: 06-26-2023 Patient encounter procedure Prabhu Ortez MD Work Phone: OB/Gynecology Comment on above: Abnormal uterine ble eding (AUB) (Primary Dx); Encounter for IUD insertion Start: 06-25-2023 End: 06-25-2023 Office outpatient new 45 minutes Norbert Noriega MD Work Phone: [facility] Office Building Comment on above: Palpitations (Primar y Dx); Single subsegmental pulmonary embolism without acute cor pulmonale (Multi); Smoking addiction Start: 06-24-2023 End: 06-24-2023 Emergency department patient visit RACHELL AMADOR [facility] [place] Emergency Medicine Comment on above: Dysfunctional uterin e bleeding (Primary Dx); Post-op pain Start: 06-24-2023 ambulatory Lillian Rocha [facility] Comment on above: Patient Update Start: 06-24-2023 Patient encounter procedure Eugene Louie RN NURSE STRETCH PRESS OPERATOR Comment on above: Clinical Update Start: 06-24-2023 Telephone encounter Prabuh brizuela MD Work Phone: OB/Gynecology Comment on above: Heavy Bleeding Start: 06-22-2023 End: 06-22-2023 Emergency department patient visit RACHELL AMADOR Facility:[facility] Start: 06-22-2023 End: 06-22-2023 Emergency department patient visit [facility] Work Phone: Start: 06-21-2023 End: 06-21-2023 Subsequent hospital visit by physician Tylor Lopes [facility] [facility] Comment on above: Arrived Start: 06-21-2023 End: 06-21-2023 ambulatory SATURNINO VELÁZQUEZ [facility] Start: 06-21-2023 End: 06-21-2023 Emergency department patient visit Saturnino Velázquez DO Work Phone: [facility] [place] Emergency Medicine Comment on above: Single subsegmental pulmonary embolism without acute cor pulmonale (Multi) (Primary Dx) Start: 06-19-2023 End: 06-20-2023 Evaluation and management of inpatient Saturnino Velázquez DO Work Phone: [facility] 3 Comment on above: Acute post-operative pain (Primary Dx); Status post cholecystectomy; Vomiting and diarrhea Start: 06-18-2023 End: 06-18-2023 Emergency department patient visit Saturnino Gordy Velázquez DO Work Phone: [facility] [place] Emergency [facility] Comment on above: Postoperative pain ( Primary Dx) Start: 06-17-2023 End: 06-17-2023 Subsequent hospital visit by physician Alla Llanes MD Work Phone: [facility] [place] Comment on above: Post-operative pain (Primary Dx); Symptomatic cholelithiasis Start: 06-12-2023 End: 06-12-2023 [employer] Dipti Freed DO Work Phone: Psychiatry Comment on above: Post depressi on (Primary Dx); Panic disorder without agoraphobia; PTSD (post-traumatic stress disorder) Start: 06-05-2023 Refill Dipti Freed DO Work Phone: Psychiatry Comment on above: Med Change Request Start: 06-04-2023 ambulatory [facility] Start: 06-03-2023 End: 06-03-2023 Office outpatient visit 25 minutes Alla Llanes MD Work Phone: [facility] Comment on above: Symptomatic cholelit hiasis (Primary Dx) Start: 06-03-2023 End: 06-03-2023 Patient encounter procedure Rachell Amador APRN.SEMICONDUCTOR WAFERS TESTER Work Phone: [facility] Comment on above: Pain in the coccyx ( Primary Dx); Tailbone injury, initial encounter; Depression, unspecified depression type; Generalized anxiety disorder Start: 05-13-2023 End: 05-13-2023 [employer] Dipti Freed DO Work Phone: Psychiatry Comment [...] Note Start: 12-13-2022 ambulatory [facility] [place] Comment on above: Population Health Na vigation Outreach (Peds/OB) Start: 12-03-2022 End: 12-03-2022 Patient encounter procedure Prabhu Ortez MD Work Phone: OB/Gynecology Comment on above: Encounter for superv ision of normal first in third trimester (Primary Dx); 36 weeks gestation of Start: 11-25-2022 Telephone encounter Fisher Trammel Net RN Obstetrics/Gynecology Comment on above: PRAF Start: [...] OB/Gynecology Comment on above: Received Outside Med [facility] Records Start: 10-09-2022 End: 10-09-2022 ambulatory [facility] Work Phone: Start: 10-09-2022 End: 10-09-2022 Patient encounter procedure [facility] [place] claim agent Off Start: 09-24-2022 End: 09-24-2022 ambulatory [facility] Work Phone: Start: 09-24-2022 End: 09-24-2022 Patient encounter procedure [facility], [place] claim agent Off Start: 08-29-2022 End: 08-29-2022 [facility] Start: 08-17-2022 End: 08-17-2022 [facility] Start: 07-12-2022 End: 07-12-2022 Emergency department patient visit Mauricio Reyes [facility] Emergency 06 Start: 05-24-2022 End: 05-24-2022 Patient encounter procedure [facility] [place] claim agent Off Start: 04-19-2022 End: 04-19-2022 ambulatory [facility] Work Phone: Start: 04-19-2022 End: 04-19-2022 [facility] [place] [facility] Start: 02-07-2022 End: 02-07-2022 ambulatory [facility] Work Phone: [facility] Work Phone: Start: 02-07-2022 End: 02-07-2022 Patient encounter procedure [facility] [place] [facility] Start: 12-12-2021 End: 12-12-2021 ambulatory [facility] Work Phone: Start: 12-12-2021 End: 12-12-2021 Patient encounter procedure [facility]atory, [place] claim agent Off Start: 12-05-2021 End: 12-05-2021 ambulatory [facility] Work Phone: Start: 12-05-2021 End: 12-05-2021 Patient encounter procedure [facility]-Pulmonary Services/Neurology Start: 12-05-2021 Non-patient / Non-visit [facility] Work Phone: [facility] Start: 12-01-2021 End: 12-01-2021 ambulatory [facility] Work Phone: Start: 12-01-2021 End: 12-01-2021 Patient encounter procedure [facility]-Laboratory Start: 11-12-2021 End: 11-12-2021 Patient encounter procedure Leeann Ascencio [facility] Work Phone: [facility] Comment on above: Burning with urinati on (Primary Dx); Exposure to HIV; Acute vaginitis Start: 10-31-2021 End: 10-31-2021 ambulatory [facility] Work Phone: Start: 10-31-2021 End: 10-31-2021 Patient encounter procedure [facility], [place] claim agent Off Start: 08-14-2021 End: 08-14-2021 Patient encounter procedure Steven Rojas [facility] Work Phone: [facility] Comment on above: Screening for STD (s exually transmitted disease) (Primary Dx) Start: 05-24-2021 End: 05-24-2021 Patient encounter procedure [facility], [place] claim agent Off Start: 05-17-2021 End: 05-17-2021 Patient encounter procedure [facility], [place] claim agent Off Start: 03-21-2021 End: 03-21-2021 Emergency department patient visit Tatyana Michaels [facility] Emergency 05 Start: 08-07-2017 Ambulatory [facility] Start: 07-30-2017 Ambulatory [facility] J [facility] Start: 07-29-2017 Ambulatory [facility] Start: 07-24-2017 Ambulatory [facility] Start: 07-11-2017 Ambulatory [facility]STEL COHEN [facility] Start: 07-10-2017 Ambulatory [facility]EL Delong [facility] Start: 07-01-2017 End: 07-01-2017 Ambulatory DUANE Modi [facility] Start: 06-19-2017 Ambulatory [facility]EL COHEN [facility] Start: 06-03-2017 Ambulatory [facility] Start: 05-01-2017 Ambulatory K[facility]STELDEVENDRA COHEN [facility] Start: 04-15-2017 Ambulatory [facility]EL COHEN [facility] Start: 04-08-2017 Ambulatory [facility] Start: 03-10-2017 End: 03-11-2017 Emergency department patient visit SHEILA Baker [facility] Start: 02-27-2017 Ambulatory [facility]EL [facility] Start: 02-27-2017 Ambulatory [facility]EL [facility] Start: 01-15-2017 Ambulatory [facility]EL [facility] Start: 12-30-2016 End: 12-31-2016 Emergency department patient visit [facility] Start: 11-19-2016 End: 11-19-2016 Emergency department patient visit Jessica Miranda Facility[facility] Start: 09-13-2016 End: 09-13-2016 Emergency department patient visit [facility] Procedures Date Procedure Procedure Detail Performing [...] of rupture of amniotic membrane Rachell Queden DIGITAL HARDWARE DESIGN ENGINEER-C Work Phone: Comment on above: Amniotic fluid not present indicates No Rupture of FetalMembranes at time of specimen collection. Start: 09-08-2024 Urnls dip stick/tablet rgnt non-auto w/o micrscp Gino Valero APRN.CNM Work Phone: Start: 09-07-2024 Urnls dip stick/tablet reagent auto microscopy Rachell Queden DIGITAL HARDWARE DESIGN ENGINEER-C Work Phone: Start: 09-07-2024 Urnls dip stick/tablet rgnt non-auto w/o micrscp Yamila Ballard MD Work Phone: Start: 09-07-2024 Us preg uterus after 1st trimest 02/10 gestation Prabhu Ortez MD Work Phone: Start: 09-07-2024 Urine culture Rachell Queden DIGITAL HARDWARE DESIGN ENGINEER-C Work Phone: Start: 08-03-2024 Estimated creatinine clearance Rachell Queden DIGITAL HARDWARE DESIGN ENGINEER-C Work Phone: Start: 08-03-2024 Measurement of pH in vaginal fluid specimen using nitrazine yellow for detection of rupture of amniotic membrane Rachell Queden DIGITAL HARDWARE DESIGN ENGINEER-C Work Phone: Comment on above: Amniotic fluid not present indicates No Rupture of FetalMembranes at time of specimen collection. Start: 06-24-2025 Ecg routine ecg w/least 12 lds w/i&r Ramiro Hugo MD Work Phone: Start: 07-27-2024 Antibody screen RACHELL AMADOR Comment on above: Order Comment: Specimen Type: BLOOD SPEC IMENOrdering Facility: [facility] Address: [address] [place] [address] Performed By: #### T SPN ####CC MAIN BLOOD BANKCLIA [id number] [address] [place] Start: 06-01-2024 Us preg uterus after 1st trimest 02/10 gestation Jaquelinnaga Hi [employer].CNM Work Phone: Start: 04-07-2024 Us preg uterus after 1st trimest 02/10 gestation Jaquelin Hi APRN.CNM Work Phone: Start: 04-07-2024 Antibody screen RACHELL AMADOR Comment on above: Order Comment: Specimen Type: BLOOD SPEC IMENOrdering Facility: [facility] Address: [address] [place] [address] Performed By: #### T SPN ####CC MAIN BLOOD BANKCLIA [id number] [address] [place] Start: 03-09-2024 BACTERIAL VAGINOSIS NAAT Jaquelin Hi A BARRYN.CNM Work Phone: Start: 03-09-2024 Iadna chlamydia trachomatis amplified probe tq Jaquelin Hi APRN.CNM Work Phone: Start: 03-09-2024 Us uterus limited 1/> fetuses Jaquelinnaga Hi [employer].CNM Work Phone: Start: 03-09-2024 Microscopic observation [Identifier] in Cervix by Cyto stain Ramiro Hugo MD Work Phone: Start: 02-18-2024 Glucose quantitative blood xcpt reagent strip Interface Unspecifiedprovider Work Phone: Start: 02-18-2024 Glucose quantitative blood xcpt reagent strip Interface Unspecifiedprovider Work Phone: Start: 02-18-2024 Us preg uterus real time w/image dcmtn transvag Eugene Shukla Anny [employer]-SEMICONDUCTOR WAFERS TESTER Work Phone: Start: 02-18-2024 Blood typing serologic rh (d) Eugene Shukla Anny [employer]-SEMICONDUCTOR WAFERS TESTER Work Phone: Start: 02-18-2024 Comprehensive metabolic panel Eugene Shukla Ashaderkyle [employer]-SEMICONDUCTOR WAFERS TESTER Work Phone: Start: 02-18-2024 Urinalysis microscopic panel - Urine Qualitative by Automated Eugene Shukla Ashaderkyle [employer]-SEMICONDUCTOR WAFERS TESTER Work Phone: Start: 02-18-2024 Urine test visual color cmprsn meths Eugene Shukla Ashaderkyle [employer]-SEMICONDUCTOR WAFERS TESTER Work Phone: Start: 02-18-2024 Urnls dip stick/tablet reagent auto microscopy Eugene Shukla Ashaderkyle [employer]-SEMICONDUCTOR WAFERS TESTER Work Phone: Start: 01-27-2024 Ecg routine ecg [...] lds trcg only w/o i&r Ida Hutson [employer]-SEMIC[employer]UCTOR WAFERS TESTER Work Phone: Start: 08-21-2023 Ecg routine ecg w/least 12 lds w/i&r Ramiro Hugo MD Work Phone: Start: 08-20-2023 UA DIP,URINE HCG (POC) Mary Jo Eastman MD Work Phone: Start: 08-19-2023 Us pelvic nonobstetric real-time image complete Sandra Cole APRN.SEMICONDUCTOR WAFERS TESTER Work Phone: Start: 07-09-2023 Dup-scan xtr veins [...] stick/tablet rgnt auto w/o microscopy Leeann Ascencio [employer].SEMICONDUCTOR WAFERS TESTER Work Phone: Start: 08-14-2021 End: 08-14-2021 Urnls dip stick/tablet rgnt auto w/o microscopy Steven Rojas [employer].SEMIC[employer]UCTOR WAF[employer] TESTER Work Phone: Start: 08-21-2018 Adult depression screening assessment Steven Rojas [employer].SEMICONDUCTOR WAFERS TESTER Work Phone: History of cholecystectomy Status post cholecystectomy Saturnino Velázquez DO Work Phone: History of cholecystectomy S/P cholecystectomy Mitra Reed [employer].SEMICONDUCTOR WAFERS TESTER Work Phone: History of cholecystectomy Status post laparoscopic cholecystectomy Conor Duarte MD Work Phone: History of cholecystectomy Status post laparoscopic cholecystectomy Faiza Mishra [employer].SEMICONDUCTOR WAFERS TESTER Work Phone: History of cholecystectomy Status post laparoscopic cholecystectomy Rachell Amador DIGITAL HARDWARE DESIGN ENGINEER-C Work Phone: Plan of Treatment Date Care Activity Detail Author Start: 2077 RSV High Risk: (Elderly (60+) or Population) (1 - 1-dose 75+ series) RSV High Risk: (Elderly (60+) or Population) (1 - 1-dose 75+ series) [facility] Start: 2077 RSV VACCINE (1 - 1-dose 75+ series) RSV VACCINE (1 - 1-dose 75+ series) [facility] Start: 2052 Zoster Vaccines (1 of 2) Zoster Vaccines (1 of 2) [facility] Start: 07-27-2034 DTaP/Tdap/Td Vaccines (11 - Td or Tdap) DTaP/Tdap/Td Vaccines (11 - Td or Tdap) [facility] Start: 07-27-2034 Tetanus vaccination TETANUS [facility] Start: 07-27-2034 Urine microalbumin profile DTaP,Tdap,Td Vaccine (11 - Td or Tdap) [facility] Start: 11-05-2032 DTaP/Tdap/Td Vaccines (10 - Td or Tdap) DTaP/Tdap/Td Vaccines (10 - Td or Tdap) [facility] Start: 11-05-2032 Urine microalbumin profile [facility] Start: 07-11-2027 Urine microalbumin profile [facility] Start: 03-09-2027 Screening for malignant neoplasm of cervix [facility] Start: 2025 GC (Gonorrhea) Screening (18-24) GC (Gonorrhea) Screening (18-24) [facility] Start: 2025 Screening for Chlamydia trachomatis Chlamydia Screening (18) [facility] Start: 04-07-2025 Diabetes mellitus screening Diabetes Screening [facility] Start: 03-09-2025 GC (Gonorrhea) Screening (18-24) GC (Gonorrhea) Screening (18-24) [facility] Start: 03-09-2025 Screening for Chlamydia trachomatis Chlamydia Screening (18) [facility] Start: 02-17-2025 Diabetes mellitus screening Diabetes Screening [facility] Start: 12-25-2024 Meningococcal B Vaccine (1 of 2 - Standard) Meningococcal B Vaccine (1 of 2 - Standard) [facility] Comment on above: Postponed from 2018 (Declined at t his time) Start: 12-25-2024 Meningococcal B Vaccine: Consider Based On Risk (1 of 2 - Patient Seeks Protection) Meningococcal B Vaccine: Consider Based On Risk (1 of 2 - Patient Seeks Protection) [facility] Comment on above: Postponed from 2018 (Declined at t his time) Start: 11-23-2024 End: 11-23-2024 Patient encounter procedure 11/23/2024 3:30 PM EDT Office Visit [facility] Medical Office Building [address]nd [place] [address] Ramiro Hugo MD [address], [address] [address] [facility] Start: 11-23-2024 GC (Gonorrhea) Screening (18-24) GC (Gonorrhea) Screening (18-24) [facility] Start: 11-23-2024 Screening for Chlamydia trachomatis Chlamydia Screening (18) [facility] Start: 11-04-2024 End: 11-04-2024 Follow-up encounter 11/04/2024 11:20 AM EDT [facility] BLOOD MANAGEMENT [address] [place] [address] Nayely Gil PA-C [address] [place], [place] [phone] 7 week follow-up BLOOD MANAGEMENT Comment on above: 7 week follow-up Start: 10-14-2024 End: 10-14-2024 Patient encounter procedure 10/14/2024 9:20 AM EDT Office Visit OB/Gynecology [address] [place], [place] [id number] Yamila Ballard MD [address] [place], [place] [id number] 1 week incision check OB/Gynecology Comment on above: 1 week incision check Start: 10-11-2024 Influenza vaccination [facility] Start: 10-07-2024 ambulatory Ambulatory Facility:[facility] Start: 10-02-2024 Diabetes mellitus screening Diabetes Screening [facility] Start: 09-28-2024 End: 12-28-2024 Protein/Creatinine [Mass Ratio] in Urine PROTEIN / CREATININE RATIO Lab Routine Supervision of high risk in third trimester (HCC) 37 weeks gestation of (HCC) headache in third trimester (HCC) Expected: 09/28/2024, Expires: 12/28/2024 [facility] Work Phone: Comment on above: Expected: 09/28/2024, Expires: Start: 09-28-2024 End: 09-28-2024 Patient encounter procedure 09/28/2024 11:15 AM EDT Routine Office Visit OB/Gynecology [address] [place], [place] [id number] Jaquelin Hi APRN.CN [address] [place], [place] [id number] OB OB/Gynecology Comment on above: OB Start: 2024 End: 2024 Patient encounter procedure 2024 10:10 AM EDT Routine Office Visit OB/Gynecology [address] [place] [address] Yamila Ballard MD [address] [place] [address] OB Pre Op C/S 10/07 @ [facility] OB/Gynecology Comment on above: OB Pre Op C/S 10/07 @ [facility] Start: 09-19-2024 Nonstress test [facility] Start: 09-19-2024 Obstetric monitoring [facility] Start: 09-19-2024 Vital signs measurements [facility] Start: 09-19-2024 [facility] Start: 09-17-2024 End: 09-17-2024 Patient encounter procedure 09/17/2024 10:00 AM EDT Routine Office Visit OB/Gynecology [address] [place] [address] Jaquelin Hi APRN.CN [address] [place] [address] OB OB/Gynecology Comment on above: OB Start: 09-16-2024 End: 09-16-2024 Follow-up encounter 09/16/2024 11:00 AM EDT [facility] BLOOD MANAGEMENT [address] [place] [address] Nayely Gil PA-C [address] [place], [place] [phone] 6 week follow-up BLOOD MANAGEMENT Comment on above: 6 week follow-up Start: 09-13-2024 End: 12-13-2024 CBC W Auto Differential panel - Blood COMPLETE BLOOD COUNT AND DIFFERENTIAL Lab Routine Maternal iron deficiency anemia complicating , third trimester (HCC) Expected: 09/13/2024 (Approximate), Expires: 12/13/2024 [facility] Work Phone: Comment on above: Expected: 09/13/2024 (Approximate), Expi res: 12/13/2024 Start: 09-13-2024 End: 12-13-2024 Ferritin [Mass/volume] in Serum or Plasma FERRITIN Lab Routine Maternal iron deficiency anemia complicating , third trimester (HCC) Expected: 09/13/2024 (Approximate), Expires: 12/13/2024 [facility] Comment on above: Expected: 09/13/2024 (Approximate), Expi res: 12/13/2024 Start: 09-13-2024 End: 12-13-2024 Iron and Iron binding capacity panel - Serum or Plasma IRON AND TIBC Lab Routine Maternal iron deficiency anemia complicating , third trimester (HCC) Expected: 09/13/2024 (Approximate), Expires: 12/13/2024 [facility] Comment on above: Expected: 09/13/2024 (Approximate), Expi res: 12/13/2024 Start: 09-13-2024 End: 09-13-2024 ambulatory 09/13/2024 12:00 PM EDT Results Only [facility] Draw Station [address] [place] [id number] [facility] Draw Station Start: 09-09-2024 Nonstress test [facility] Start: 09-09-2024 Obstetric monitoring [facility] Start: 09-09-2024 [facility] Start: 09-09-2024 Vital signs measurements [facility] Start: 09-09-2024 Patient discharge [facility] Start: 09-08-2024 [facility] Start: 09-07-2024 Nonstress test [facility] Start: 09-07-2024 Obstetric monitoring [facility] Start: 09-07-2024 Vital signs measurements [facility] Start: 09-07-2024 [facility] Start: 09-07-2024 End: 09-07-2024 Patient encounter procedure 09/07/2024 2:30 PM EDT Routine Office Visit OB/Gynecology [address] [place] [address] Chantelle Mann MD [address] [place] [address] Growth/OB OB/Gynecology Comment on above: Growth/OB Start: 09-07-2024 Bacteria identified in Urine by Culture Urine Culture [facility] Start: 09-07-2024 Urine culture [facility] Start: 09-07-2024 End: 09-07-2024 Patient encounter procedure OB/Gynecology Comment on above: OB Growth Start: 09-04-2024 End: 09-04-2024 ambulatory 09/04/2024 11:30 AM EDT Results Only [facility] Station [address] [place] [address] [facility] Start: 08-24-2024 End: 08-24-2025 OBSTETRIC ULTRASOUND [facility] OBSTETRIC ULTRASOUND [facility] Anc Imaging Routine History of shoulder dystocia in prior Expected: 08/24/2024, Expires: 08/24/2025 [facility] Work Phone: Comment on above: Expected: 08/24/2024, Expires: Start: 08-24-2024 End: 08-24-2024 ambulatory 08/24/2024 1:30 PM EDT [facility] INF[facility]ION [address] [place] [address] VenLouise kiser, AJ INFUSION Comment on above: Louise Muñoz AJ Start: 08-24-2024 End: 08-24-2024 Patient encounter procedure 08/24/2024 10:30 AM EDT Routine Office Visit OB/Gynecology [address] [place] [address] Prabhu Ortez MD [address] [place] [address] OB OB/Gynecology Comment on above: OB Start: 08-20-2024 End: 08-20-2024 ambulatory 08/20/2024 2:30 PM EDT Infusion Center INF[facility]ION [address] [place] [address] Venofer, Torchia, AJ INFUSION Comment on above: Louise Muñoz AJ Start: 08-17-2024 End: 08-17-2024 ambulatory 08/17/2024 2:30 PM EDT Infusion Center IN[facility]USION [address] [place] [address] Louise Muñoz AJ INFUSION Comment on above: Louise Muñoz AJ Start: 08-17-2024 GC (Gonorrhea) Screening (18-24) GC (Gonorrhea) Screening (18-24) [facility] Start: 08-17-2024 Screening for Chlamydia trachomatis Chlamydia Screening (18-) [facility] Start: 08-12-2024 End: 08-12-2024 ambulatory 08/12/2024 2:30 PM EDT Infusion Center INFUSION [address] [place] [address] Louise Muñoz AJ INFUSION Comment on above: Louise Muñoz AJ Start: 08-10-2024 End: 08-10-2024 Patient encounter procedure 08/10/2024 11:20 AM EDT Routine Office Visit OB/Gynecology [address] [place] [address] Prabhu Ortez MD [address] [place] [address] OB OB/Gynecology Comment on above: OB Start: 08-09-2024 Influenza vaccination Influenza Vaccine (#1) [facility] Comment on above: Postponed from 10/12/2023 (Declined at t his time) Start: 08-05-2024 End: 08-05-2024 Patient encounter procedure 08/05/2024 11:00 AM EDT [facility] BLOOD MANAGEMENT [address] [place] [address] Nayely Gil PA-C [address] [place], [place] [phone] new anemia BLOOD MANAGEMENT Comment on above: new anemia Start: 08-03-2024 Nonstress test [facility] Start: 08-03-2024 Obstetric monitoring [facility] Start: 08-03-2024 Vital signs measurements [facility] Start: 08-03-2024 [facility] Start: 08-03-2024 End: 08-03-2024 Patient encounter procedure 08/03/2024 11:45 AM EDT Office Visit [facility] Medical Office Building [address]nd [place] [address] Ramiro Hugo MD [address], [place] [phone] [facility] Office [facility] Start: 08-03-2024 Patient discharge [facility] Start: 06-29-2024 End: 06-29-2024 Patient encounter procedure 06/29/2024 1:15 PM EDT Routine Office Visit OB/Gynecology [address] [place] [address] Jaquelin Hi APRN.CNM [address] [place] [address] OB OB/Gynecology Comment on above: OB Start: 06-25-2024 GC (Gonorrhea) Screening (18-24) GC (Gonorrhea) Screening (18-24) [facility] Start: 06-25-2024 Screening for Chlamydia trachomatis Chlamydia Screening (18-24) [facility] Start: 06-01-2024 End: 06-01-2024 Patient encounter procedure [facility] Comment on above: Anatomy Scan OB Routine Start: 05-04-2024 End: 05-04-2024 Patient encounter procedure 05/04/2024 2:30 PM EDT Routine Office Visit OB/Gynecology [address] [place] [address] Jaquelin Hi APRN.CNM [address] [place] [address] OB Routine OB/Gynecology Comment on above: OB Routine Start: 04-07-2024 End: 04-07-2024 Patient encounter procedure [facility]aternal Medicine Comment on above: Nuchal OB Routine Start: 04-07-2024 End: 07-07-2024 CARRIER SCREEN, STANDARD [facility] Comment on above: Expected: 04/07/2024, Expires: Start: 04-07-2024 End: 07-07-2024 Chromosome 21 trisomy [Presence] in Blood or Tissue by Cytogenetics [facility] Comment on above: Expected: 04/07/2024, Expires: Start: 04-07-2024 End: 07-07-2024 HEMOGLOBIN EVALUATION CASCADE [facility] Work Phone: Comment on above: Expected: 04/07/2024, Expires: Start: 03-17-2024 End: 03-17-2024 FQHC visit new patient 03/17/2024 1:00 PM EST Visit (SP) Office Hematology/Oncology [address] [place] [address] Jimmy Carbajal DO [address] [place] [address] New patient Hematology/Oncology Comment on above: New patient Start: 03-09-2024 End: 06-08-2024 ANEMIA REFLEX PANEL ANEMIA REFLEX PANEL Lab Routine with uncertain dates, antepartum Expected: 03/09/2024, Expires: 06/08/2024 [facility] Work Phone: Comment on above: Expected: 03/09/2024, Expires: Start: 03-09-2024 End: 06-08-2024 Hemoglobin A1c in Blood HEMOGLOBIN A1C Lab Routine with uncertain dates, antepartum Expected: 03/09/2024, Expires: 06/08/2024 [facility] Comment on above: Expected: 03/09/2024, Expires: Start: 03-09-2024 End: 06-08-2024 Hepatitis B virus surface Ag [Presence] in Serum HEPATITIS B SURFACE ANTIGEN Lab Routine with uncertain dates, antepartum Expected: 03/09/2024, Expires: 06/08/2024 [facility] Comment on above: Expected: 03/09/2024, Expires: Start: 03-09-2024 End: 06-08-2024 Hepatitis C virus Ab [Presence] in Serum HEPATITIS C ANTIBODY IA WITH CONFIRMATION Lab Routine with uncertain dates, antepartum Expected: 03/09/2024, Expires: 06/08/2024 [facility] Comment on above: Expected: 03/09/2024, Expires: Start: 03-09-2024 End: 06-08-2024 HIV 1+2 Ab [Presence] in Serum or Plasma by Immunoassay HIV 1/2 COMBO WITH REFLEX TO DIFFERENTIATION Lab Routine with uncertain dates, antepartum Expected: 03/09/2024, Expires: 06/08/2024 [facility] Comment on above: Expected: 03/09/2024, Expires: Start: 03-09-2024 End: 03-09-2025 OBSTETRIC ULTRASOUND WHI OBSTETRIC ULTRASOUND WHI Anc Imaging Routine with uncertain dates, antepartum Expected: 03/09/2024, Expires: 03/09/2025 [facility] Comment on above: Expected: 03/09/2024, Expires: Start: 03-09-2024 End: 06-08-2024 RUBELLA IGG ANTIBODY RUBELLA IGG ANTIBODY Lab Routine with uncertain dates, antepartum Expected: 03/09/2024, Expires: 06/08/2024 [facility] Comment on above: Expected: 03/09/2024, Expires: Start: 03-09-2024 End: 06-08-2024 SYPHILIS TREPONEMAL W/REFLEX SYPHILIS TREPONEMAL W/REFLEX Lab Routine with uncertain dates, antepartum Expected: 03/09/2024, Expires: 06/08/2024 [facility] Comment on above: Expected: 03/09/2024, Expires: Start: 03-09-2024 End: 06-08-2024 TYPE + SCREEN TYPE + SCREEN Blood Bank Routine with uncertain dates, antepartum Expected: 03/09/2024, Expires: 06/08/2024 [facility] Comment on above: Expected: 03/09/2024, Expires: Start: 03-09-2024 End: 03-09-2024 Patient encounter procedure 03/09/2024 1:00 PM EST Initial Office Visit OB/Gynecology [address] [place] [address] Jaquelin Hi APRN.CNM [address] [place] [address] New OB LMP 01/06 OB/Gynecology Comment on above: New OB LMP 01/06 Start: 02-03-2024 End: 02-03-2024 Patient encounter procedure 02/03/2024 9:40 AM EST Office Visit OB/Gynecology [address] [place] [address] Prabhu Ortez MD [address] [place] [address] ANNUAL OB/Gynecology Comment on above: ANNUAL Start: 01-27-2024 End: 01-27-2024 Patient encounter procedure 01/27/2024 11:00 AM EST Office Visit [facility] 3 6525 [facility] [address] [phone] Ramiro Hugo MD [address] [facility] 3, [facility] 301 [place] [address] [facility] 3 Start: 12-26-2023 End: 12-26-2023 Patient encounter procedure 12/26/2023 10:00 AM EST Office Visit [facility] [address] [place] [address] Rachell Amador, PIPE STEM SAWYER.SEMICONDUCTOR WAFERS TESTER [address] [place] [address] [facility] Comment on above: [facility] Start: 12-10-2023 End: 12-10-2023 Patient encounter procedure 12/10/2023 1:15 PM EDT Office Visit [facility] Medical Office Building [address]nd [place] [address] [place] [address] [facility] [address], [address] [place], [place] [phone] [facility] Medical Office [facility] Start: 11-27-2023 End: 11-27-2023 Patient encounter procedure 11/27/2023 2:20 PM EDT Office Visit [facility] [address] [place] [address] Rachell Amador, PIPE STEM SAWYER.SEMICONDUCTOR WAFERS TESTER [address] [place] [address] [facility] Comment on above: [place] Start: 11-05-2023 End: 11-05-2023 Patient encounter procedure 11/05/2023 11:00 AM EDT Office Visit [facility] Office [address] [place] [address] Miki Jaramillo MD 350 [facility] H[address]1 [place], [place] [id number] [facility] Office [facility] Start: 10-16-2023 End: 10-16-2023 Admission to same day surgery center 10/16/2023 7:00 AM EDT [facility] G[facility]enter[facility] [address] [place] [address] Faiza Mishra, PIPE STEM SAWYER.SEMICONDUCTOR WAFERS TESTER [address] [address] [facility] for GI for that they can manage her diarrhea. Gastroenterology Comment on above: Per Dr. Duarte [facility] consult for GI for that they can manage her diarrhea. Start: 10-12-2023 Covid-19 Vaccine () Covid-19 Vaccine ( season) [facility] Start: 10-12-2023 Covid-19 Vaccine ( season) Covid-19 Vaccine ( season) [facility] Start: 10-12-2023 Influenza vaccination [facility] Start: 10-03-2023 End: 10-03-2023 Admission to same day surgery center 10/03/2023 8:00 AM EDT - 10/03/2023 12:00 PM EDT Surgery [facility] [address] [place] [phone] Ramiro Hugo MD 65[address] [facility] 3, [address] [id number] Ablation SVT (29915) [18063 (CPT )] [facility] Comment on above: Ablation SVT (46895) [38756 (CPT )] Start: 10-03-2023 Subsequent hospital visit by physician 10/03/2023 8:00 AM EDT Hospital Encounter [facility] [address] [place] [phone] Ramiro Hugo MD 12[address] [facility] 3, [address] [id number] SVT (supraventricular tachycardia) ([facility]) [facility] Comment on above: SVT (supraventricular tachycardia) (CMS- HCC) Start: 09-29-2023 End: 09-29-2023 Patient encounter procedure 09/29/2023 2:30 PM EDT Office Visit General Surgery [address] [place], [place] [phone] Conor Duarte MD [address] [place] [address] Functional diarrhea General Surgery Comment on above: Functional diarrhea Start: 09-24-2023 End: 09-24-2023 Patient encounter procedure 09/24/2023 11:45 AM EDT Office Visit [facility] Medical Office Building [address] [place] [address] 2nd [place] [address] Norbert Herndon MD [address] [place] [address] [address], [address] [place] [address] [facility] Medical Office [facility] Start: 09-23-2023 Screening for malignant neoplasm of cervix [facility] Start: 09-15-2023 End: 09-15-2023 Admission to same day surgery center [facility] Surgery Comment on above: LAPAROSCOPY DIAGNOSTIC, Removal of IUD LAPAROSCOPY DIAGNOST IC Start: 09-15-2023 End: 09-15-2023 Laps abd prtm&omentum dx w/wo spec br/wa spx [facility] OR Start: 09-15-2023 End: 09-15-2023 Removal intrauterine device iud REMOVAL INTRAUTERINE DEVICE Malpositioned intrauterine device (IUD), sequela 09/15/2023 8:30 AM EDT ME OR Start: 09-15-2023 Subsequent hospital visit by physician [facility] Surgery Comment on above: Malpositioned intrauterine device (IUD), sequela [T83.32XS] Start: 09-12-2023 End: 09-12-2023 Patient encounter procedure 09/12/2023 10:40 AM EDT Office Visit OB/Gynecology [address] [place] [address] Mary Jo Chance MD [address] [place] [address] Pre Op Surgery 09/14 @ [place] [facility] Comment on above: Pre Op Surgery 09/14 @ [place] Start: 09-03-2023 End: 09-03-2023 Patient encounter procedure 09/03/2023 2:30 PM EDT Office Visit [facility] Medical Office [address] [place] [address] Norbert Herndon MD [address] [place] [address] [address], [address] [place] [address] [facility] Medical Office Building Start: 09-01-2023 End: 09-01-2023 Anesthesia consultation 09/01/2023 9:20 AM EDT PAT Pre Anesthesia [address] [place] [address] 1, Pacc Grant [address] [place] [address] LAPAROSCOPY DIAGNOSTIC Pre Anesthesia Comment on above: LAPAROSCOPY DIAGNOSTIC Start: 08-25-2023 End: 08-25-2023 Patient encounter procedure 08/25/2023 11:00 AM EDT Appointment [facility] PULMONARY TESTING [address] [place] [address] Echo [facility]UL[facility] Comment on above: Echo Start: 08-21-2023 End: 08-20-2024 Basic metabolic 2000 panel - Serum or Plasma Basic Metabolic Panel Lab Routine SVT (supraventricular tachycardia) ([facility]) Expected: 08/21/2023 (Approximate), Expires: 08/20/2024 [facility] Service Area Work Phone: Comment on above: Expected: 08/21/2023 (Approximate), Expi res: 08/20/2024 Start: 08-21-2023 End: 08-20-2024 CBC panel - Blood by Automated count CBC Lab Routine SVT (supraventricular tachycardia) ([facility]) Expected: 08/21/2023 (Approximate), Expires: 08/20/2024 [facility] Work Phone: Comment on above: Expected: 08/21/2023 (Approximate), Expi res: 08/20/2024 Start: 08-20-2023 End: 08-20-2023 Patient encounter procedure 08/20/2023 12:45 PM EDT Appointment [facility] PULMONARY TESTING [address] [facility] [place] [address] [facility] CARDIO PULMONARY TESTING Comment on above: Echo Start: 08-20-2023 End: 08-20-2023 Patient encounter procedure 08/20/2023 9:20 AM EDT Office Visit OB/Gynecology [address] [place] [address] Mary Jo Chance MD [address] [place] [address] Endosee for IUD Removal OB/Gynecology Comment on above: Endosee for IUD Removal Start: 08-20-2023 End: 08-20-2023 Patient encounter procedure 08/20/2023 12:45 AM EDT Appointment [facility] PULMONARY TESTING [address] [facility] [place] [address] Echo [facility] PULMONARY TESTING Comment on above: Echo Start: 08-19-2023 End: 08-19-2023 Manual pelvic examination 08/19/2023 2:30 PM EDT Procedure OB/Gynecology [address] [place] [phone] Pelvic pain in female [R10.2]; Intrauterine contraceptive [...] encounter Irregular bleeding Expected: 08/18/2023, Expires: 08/17/2024 [facility] Work Phone: Comment on above: Expected: 08/18/2023, Expires: Start: 07-24-2023 End: 07-24-2023 Patient encounter procedure 07/24/2023 10:45 AM EDT Office Visit OB/Gynecology [address] [place] [phone] Gino Valero APRN.CN [address] [place] [address] follow up OB/Gynecology Comment on above: follow up Start: 07-15-2023 End: 07-15-2023 Patient encounter procedure 07/15/2023 9:30 AM EDT Office Visit Pulmonary Medicine [address] [place], [place] [address] Chantelle Low PA-C [address] [place] [address] Pulmonary Medicine Start: 07-10-2023 End: 07-10-2023 Patient encounter procedure 07/10/2023 11:15 AM EDT Office Visit [facility] 22[address] [facility] [address] [place] [address] Alla Llanes MD 2212 [facility], [facility] [address] [place] [address] [facility] Start: 07-09-2023 End: 07-09-2023 ambulatory 07/09/2023 2:30 PM EDT [facility] Psychiatry [address] [facility] 500 [place] [address] Dipti Freed, [address] [place] [address] med check Psychiatry Comment on above: med check Start: 07-09-2023 End: 07-09-[address] [facility] Start: 07-08-2023 End: 07-08-2023 Patient encounter procedure 07/08/2023 11:00 AM EDT Office Visit [facility] 2212 [facility] [address] [place] [address] Alla Llanes MD 2212 [facility], [facility] [address] [place] [address] [facility] Start: 07-02-2023 End: 07-01-2024 F5 gene [id number] [Presence] in Blood or Tissue by Molecular genetics method Factor V Leiden Lab Routine Single subsegmental pulmonary embolism without acute cor pulmonale (Multi) Expected: 07/02/2023 (Approximate), Expires: 07/01/2024 [facility] Work Phone: Comment on above: Expected: 07/02/2023 (Approximate), Expi res: 07/01/2024 Start: 07-02-2023 End: 07-01-2024 Prothrombin Gene Mutation Prothrombin Gene Mutation Lab Routine Single subsegmental pulmonary embolism without acute cor pulmonale (Multi) Expected: 07/02/2023 (Approximate), Expires: 07/01/2024 [facility] Work Phone: Comment on above: Expected: 07/02/2023 (Approximate), Expi res: 07/01/2024 Start: 07-02-2023 End: 07-02-2023 Patient encounter procedure [facility] Comment on above: ER follow up Start: 06-26-2023 End: 06-26-2023 Patient encounter procedure 06/26/2023 1:20 PM EDT Office Visit OB/Gynecology [address] [place] [address] Prabhu Ortez MD [address] [place] [address] ER follow [facility] 06/24/23 OB/Gynecology Comment on above: ER follow [facility] 06/24/23 Start: 06-25-2023 End: 06-24-2025 Holter monitor study Holter [employer] [facility] Routine Palpitations Expected: 06/25/2023 (Approximate), Expires: 06/24/2025 [facility] Work Phone: Comment on above: Expected: 06/25/2023 (Approximate), Expi res: 06/24/2025 Start: 06-25-2023 End: 06-24-2025 US.doppler Lower extremity vein - bilateral Vascular US Lower Extremity Venous Duplex Bilateral Vascular Ultrasound Routine Single subsegmental pulmonary embolism without acute cor pulmonale (Multi) Expected: 06/25/2023 (Approximate), Expires: 06/24/2025 [facility] Work Phone: Comment on above: Expected: 06/25/2023 (Approximate), Expi res: 06/24/2025 Start: 06-25-2023 End: 06-25-2023 Patient encounter procedure 06/25/2023 1:45 PM EDT Office Visit [facility] Medical Office Building [address] [place] [address] [place] [address] [facility] [address], [address] [place], [place] [phone] [facility] Medical Office Building Start: 06-22-2023 Blood chemistry [facility] Start: 06-22-2023 Plain chest X-ray Chest 1 View (Portable) [facility] Start: 06-22-2023 [facility] Start: 06-17-2023 Subsequent hospital visit by physician 06/17/[address] [facility] [place] [address] [place] [address] Alla Llanes MD [address] [facility], [address] [place] [address] [facility] [place] Start: 06-12-2023 End: 06-12-2023 ambulatory 06/12/2023 10:30 AM EDT [facility] Psychiatry [address] [facility] [address] [place] [address] Dipti Freed, [address] [place], [place] [phone] [facility] Psychiatry Comment on above: [facility] Start: 05-25-2023 CHLAMYDIA SCREENING (18-24) CHLAMYDIA SCREENING (18-24) [facility] Start: 05-25-2023 GC (GONORRHEA) SCREENING (18-24) GC (GONORRHEA) SCREENING (18-24) [facility] Start: 05-25-2023 Screening for Chlamydia trachomatis Chlamydia Screening (18-24) [facility] Start: 05-13-2023 End: 08-12-2023 Thyrotropin [Units/volume] in Serum or Plasma TSH BLD Lab Routine PTSD (post-traumatic stress disorder) Expected: 05/13/2023, Expires: 08/12/2023 [facility] Work Phone: Comment on above: Expected: 05/13/2023, Expires: 4 Start: 05-13-2023 End: 08-12-2023 Thyroxine (T4) free [Mass/volume] in Serum or Plasma T4 FREE/FREE THYROX Lab Routine PTSD (post-traumatic stress disorder) Expected: 05/13/2023, Expires: 08/12/2023 [facility] Work Phone: Comment on above: Expected: 05/13/2023, Expires: 4 Start: 05-13-2023 End: 08-12-2023 TOX SCREEN ROUT UR TOX SCREEN ROUT UR Lab Routine Episode of recurrent major depressive disorder, unspecified depression episode severity (HCC) Expected: 05/13/2023, Expires: 08/12/2023 [facility] Work Phone: Comment on above: Expected: 05/13/2023, Expires: 4 Start: 04-23-2023 End: 07-23-2023 CBC panel - Blood by Automated count CBC Lab Routine Spotting Expected: 04/23/2023, Expires: 07/23/2023 [facility] Work Phone: Comment on above: Expected: 04/23/2023, Expires: Start: 10-11-2022 Covid-19 Vaccine ( season) Covid-19 Vaccine ( season) [facility] Start: 10-11-2022 Influenza vaccination [facility] Start: 08-14-2022 CHLAMYDIA SCREENING () CHLAMYDIA SCREENING () [facility] Start: 08-14-2022 GC (GONORRHEA) SCREENING () GC (GONORRHEA) SCREENING () [facility] Start: 11-12-2021 End: 01-12-2022 HIV 1+2 Ab [Presence] in Serum or Plasma by Immunoassay HIV 1 2 COMBO(AG/AB),WITH REFLEX TO DIFFERENTIATION Lab Routine Exposure to HIV Expected: 11/12/2021, Expires: 01/12/2022 [facility] Work Phone: Comment on above: Expected: 11/12/2021, Expires: 2 Start: 10-11-2021 Influenza vaccination INFLUENZA (#1) [facility] Start: 08-15-2021 End: 10-15-2021 HIV 1+2 Ab [Presence] in Serum or Plasma by Immunoassay HIV 1 2 COMBO(AG/AB),WITH REFLEX TO DIFFERENTIATION Lab Routine Screening for STD (sexually transmitted disease) Expected: 08/15/2021, Expires: 10/15/2021 [facility] Work Phone: Comment on above: Expected: 08/15/2021, Expires: 2 Start: 08-14-2021 End: 10-14-2021 Chronic hepatitis differentiation between hepatitis B and C virus panel - Serum or Plasma [facility] Work Phone: Comment on above: Expected: 08/14/2021, Expires: 2 Start: 08-14-2021 End: 10-14-2021 Hepatitis C virus Ab [Presence] in Serum [facility] Work Phone: Comment on above: Expected: 08/14/2021, Expires: 2 Start: 08-14-2021 End: 10-14-2021 SYPHILIS TOTAL W/REFLEX [facility] Work Phone: Comment on above: Expected: 08/14/2021, Expires: 2 Start: 03-21-2021 End: 03-22-2022 Ondansetron Dispersible 4 mg Oral Tablet Once STAT ; Tablet, Disintegrating (ZOFRAN)DOSE = 4 mg Oral Once, PRN Nausea Start: 21-Mar-2021 End: 21-Mar-2022 Ordered: 21-Mar-[address] [facility] Start: 2020 CHLAMYDIA SCREENING (18-24) CHLAMYDIA SCREENING (18-24) [facility] Start: 2020 Diabetes mellitus screening Diabetes Screening [facility] Start: 2020 GC (GONORRHEA) SCREENING (18-24) GC (GONORRHEA) SCREENING (18-24) [facility] Start: 2020 HEPATITIS C SCREENING HEPATITIS C SCREENING [facility] Start: 2020 Hepatitis C screening Hepatitis C Screening [facility] Start: 2020 HIV SCREENING HIV SCREENING [facility] Start: 08-22-2019 Adult depression screening assessment DEPRESSION SCREENING [facility] Start: 2018 Meningococcal B Vaccine (1 of 2 - Standard) Meningococcal B Vaccine (1 of 2 - Standard) [facility] Start: 2018 Meningococcal B Vaccine: Consider Based On Risk (1 of 2 - Patient Seeks Protection) Meningococcal B Vaccine: Consider Based On Risk (1 of 2 - Patient Seeks Protection) [facility] Start: 2018 MENINGOCOCCAL B: Consider based on risk (1 of 2 - Patient Seeks Protection) MENINGOCOCCAL B: Consider based on risk (1 of 2 - Patient Seeks Protection) [facility] Start: 2018 MENINGOCOCCAL CONJUGATE (2 - 2-dose series) MENINGOCOCCAL CONJUGATE (2 - 2-dose series) [facility] Start: 2018 Screening for Chlamydia trachomatis CHLAMYDIA SCREEN [facility] Start: 07-24-2018 Screening for Chlamydia trachomatis GONORRHEA SCREEN [facility] Start: 2017 HIV screening HIV SCREENING DISCUSSION [facility] Start: 2016 PEDS TO ADULT TRANSITION ANNUAL ASSESSMENT PEDS TO ADULT TRANSITION ANNUAL ASSESSMENT [facility] Start: 2014 PEDS TO ADULT TRANSITION INITIAL DISCUSSION PEDS TO ADULT TRANSITION INITIAL DISCUSSION [facility] Start: 2012 MENINGOCOCCAL B: Consider based on risk (1 of 2 - Risk Bexsero 2-dose series) MENINGOCOCCAL B: Consider based on risk (1 of 2 - Risk Bexsero 2-dose series) [facility] Start: 2008 Pneumococcal Vaccine: Pediatrics (0 to 5 Years) and At-Risk Patients (6 to 64 Years) (1 of 1 - PPSV23 or PCV20) Pneumococcal Vaccine: Pediatrics (0 to 5 Years) and At-Risk Patients (6 to 64 Years) (1 of 1 - PPSV23 or PCV20) [facility] Start: 08-13-2007 Hearing Screening (#1) Hearing Screening (#1) [facility] Start: 2005 Well Child Visit (WCV) - Annual Well Child Visit (WCV) - Annual [facility] Start: 03-25-2003 COVID-19 VACCINE (#1) COVID-19 VACCINE (#1) [facility] Start: 2002 Hearing Screening (#1) Hearing Screening (#1) [facility] Start: 2002 Hepatitis C screening HEPATITIS C VIRUS SCREENING [facility] Start: 2002 Lipid panel Lipid Panel [facility] Start: 2002 Yearly Adult Physical Yearly Adult Physical [facility] Anion gap measurement [facility] Bacteria identified in Urine by Culture URINE CULTURE Microbiology Routine Burning with urination 11/12/2021 7:35 PM EDT [facility] Work Phone: End: 06-24-2023 Bacteria identified in Urine by Culture [facility] Work Phone: Comment on above: Once (Lab) for 1 Occurrences starting until 06/24/2023 End: 02-18-2024 Bacteria identified in Urine by Culture [facility] Work Phone: Comment on above: Once (Lab) for 1 Occurrences starting until 02/18/2024 Bacteria identified in Urine by Culture BACTERIAL CULTURE, URINE Microbiology Routine with uncertain dates, antepartum 03/09/2024 2:20 PM [facility] Bacteria identified in Urine by Culture URINE CULTURE Microbiology Routine 09/09/2024 7:40 PM EDT [facility] BACTERIAL VAGINOSIS AMPLIFICATION BACTERIAL VAGINOSIS AMPLIFICATION Lab Routine Acute vaginitis 11/12/2021 7:41 PM EDT [facility] Work Phone: BACTERIAL VAGINOSIS NAAT BACTERI AL VAGINOSIS NAAT Lab Routine Pelvic pain in female 08/18/2023 8:44 AM EDT [facility] BACTERIAL VAGINOSIS NAAT BACTERI AL VAGINOSIS NAAT Lab Routine Vaginal discharge 11/24/2023 1:25 PM EDT [facility] BACTERIAL VAGINOSIS NAAT BACTERI AL VAGINOSIS NAAT Lab Routine Supervision of high risk in third trimester (HCC) Antepartum anemia complicating in third trimester ([facility]) 37 weeks gestation of ([facility]) Vaginal discharge during in third trimester ([facility]) 2024 3:02 PM EDT [facility] End: 09-09-2024 BETA STREP, VAGINAL SCREEN [facility] Work Phone: Comment on above: One Time for 1 Occurrences starting 08/12 until 09/09/2024 BUN/Creatinine ratio [facility] Calcium [Mass/volume ] in Serum or Plasma [facility] ALMITA / TRICHOMONA S AMPLIFICATION ALMITA / TRICHOMONAS AMPLIFICATION Lab Routine Screening for STD (sexually transmitted disease) Ordered: 08/14/2021 [facility] Work Phone: Comment on above: Ordered: 08/14/2021 ALMITA / TRICHOMONA S AMPLIFICATION ALMITA / TRICHOMONAS AMPLIFICATION Microbiology Routine Acute vaginitis 11/12/2021 7:41 PM EDT [facility] Work Phone: ALMITA/TRICHOMONAS NAAT ALMITA /TRICHOMONAS NAAT Lab Routine Pelvic pain in female 08/18/2023 8:44 AM EDT [facility] ALMITA/TRICHOMONAS NAAT ALMITA /TRICHOMONAS NAAT Lab Routine Vaginal discharge 11/24/2023 1:25 PM T [facility] Work Phone: ALMITA/TRICHOMONAS NAAT ALMITA /TRICHOMONAS NAAT Lab Routine Supervision of high risk in third trimester ([facility]) Antepartum anemia complicating in third trimester ([facility]) 37 weeks gestation of ([facility]) Vaginal discharge during in third trimester ([facility]) 2024 3:02 PM EDT [facility] Carbon dioxide, tota l [Moles/volume] in Serum or Plasma [facility] Chlamydia trachomatis+Neisseria gonorrhoeae DNA [Presence] in Unspecified specimen by SHYAM with probe detection GC/CHLAMYDIA DNA DET Lab Routine Screening for STD (sexually transmitted disease) Ordered: 08/14/2021 [facility] Work Phone: Comment on above: Ordered: 08/14/2021 Chlamydia trachomatis+Neisseria gonorrhoeae DNA [Presence] in Unspecified specimen by SHYAM with probe detection GONORRHEA/CHLAMYDIA NAAT Lab Routine Pelvic pain in female 08/18/2023 8:44 AM EDT [facility] Chlamydia trachomatis+Neisseria gonorrhoeae DNA [Presence] in Unspecified specimen by SHYAM with probe detection GONORRHEA/CHLAMYDIA NAAT Lab Routine Vaginal discharge 11/24/2023 1:25 PM EDT [facility] Chlamydia trachomatis+Neisseria gonorrhoeae DNA [Presence] in Unspecified specimen by SHYAM with probe detection GONORRHEA/CHLAMYDIA NAAT Lab Routine Supervision of high risk in third trimester ([facility]) History of pulmonary embolism History of shoulder dystocia in prior Abnormality in heart rate or rhythm, antepartum ([facility]) Antepartum anemia complicating in third trimester ([facility]) Irregular uterine contractions ([facility]) 37 weeks gestation of ([facility]) Vaginal discharge during in third trimester ([facility]) 2024 3:02 PM EDT [facility] Chloride [Moles/volu me] in Serum or Plasma [facility] End: 06-17-2023 Choriogonadotropin ( test) [Presence] in Urine hCG, Urine, Qualitative Lab STAT STAT (Lab) for 1 Occurrences starting 06/17/2023 until 06/17/2023 [facility] Work Phone: Comment on above: STAT (Lab) for 1 Occurrences starting until 06/17/2023 End: 10-03-2023 Choriogonadotropin ( test) [Presence] in Urine POCT Point of Care Testing STAT Once (Lab) for 1 Occurrences starting 10/03/2023 until 10/03/2023 [facility] Work Phone: Comment on above: Once (Lab) for 1 Occurrences starting until 10/03/2023 End: 06-19-2023 Clostridioides difficile toxin A+B tcdA+tcdB genes [Presence] in Stool by SHYAM with probe detection C. difficile, PCR Microbiology STAT STAT (Lab) for 1 Occurrences starting 06/19/2023 until 06/19/2023 [facility] Work Phone: Comment on above: STAT (Lab) for 1 Occurrences starting until 06/19/2023 Creatinine [Moles/vo lume] in Serum or Plasma [facility] End: 06-21-2023 ECG 12 lead [facility] Work Phone: Comment on above: Once for 1 Occurrences starting 06/21/19 until 06/21/2023 ECG 12 lead (Clinic Performed) ECG 12 lead (Clinic Performed) ECG Routine Atrial fibrillation, unspecified type (Multi) 01/27/2024 9:30 AM EST [facility] Work Phone: End: 07-30-2024 Echocardiography ECHO Cardiology Routine Paroxysmal SVT (supraventricular tachycardia) (HCC) Palpitations 1 Occurrences starting 07/31/2023 until 07/30/2024 [facility] Work Phone: Comment on above: 1 Occurrences starting 07/31/2023 until 07/30/2024 Electrocardiogram, 12-lead PRN ACS symptoms Electrocardiogram, 12-lead PRN ACS symptoms ECG Routine As needed until discontinued starting 06/19/2023 [facility] Work Phone: Comment on above: As needed until discontinued starting Electrocardiogram, 12-lead PRN ACS symptoms Electrocardiogram, 12-lead PRN ACS symptoms ECG Routine As needed until discontinued starting 06/20/2023 [facility] Work Phone: Comment on above: As needed until discontinued starting Erythrocyte mean corpuscular volume determination [facility] End: 06-18-2023 Extra Urine [employer] [facility] Work Phone: Comment on above: Once for 1 Occurrences starting 06/18/19 until 06/18/2023 End: 06-24-2023 Extra Urine [employer] [facility] Work Phone: Comment on above: Once for 1 Occurrences starting 06/24/19 until 06/24/2023 End: 02-18-2024 Extra Urine [employer] [facility] Work Phone: Comment on above: Once for 1 Occurrences starting 02/17/19 until 02/18/2024 Glucose [Mass/volume ] in Serum or Plasma POCT Glucose Point of Care Testing - Docked Device Routine As needed (Lab) until discontinued starting 06/17/2023 [facility] Work Phone: Comment on above: As needed (Lab) until discontinued start ing 06/17/2023 Glucose [Mass/volume ] in Serum or Plasma [facility] Hematocrit [Volume Fraction] of Blood [facility] Hemoglobin [Mass/vol ume] in Blood [facility] HIV 1+2 Ab [Presence ] in Serum or Plasma by Immunoassay HIV 1 2 COMBO(AG/AB),WITH REFLEX TO DIFFERENTIATION Lab Routine Screening for STD (sexually transmitted disease) 08/14/2021 12:16 PM EDT [facility] Work Phone: End: 07-09-2023 Holter monitor study [facility] Work Phone: Comment on above: Once for 1 Occurrences starting 07/09/19 24 until 07/09/2023 Insertion intrauteri ne device iud INSERT INTRAUTERINE DEVICE Procedures Routine Abnormal uterine bleeding (AUB) Ordered: 06/26/2023 [facility] Work Phone: Comment on above: Ordered: 06/26/2023 Laparoscopy surg cholecystectomy Cholecystectomy Laparoscopy Symptomatic cholelithiasis [facility] [place] Leukocytes [#/volume ] in Blood [facility] Mean corpuscular hemoglobin concentration determination [facility] Mean corpuscular hemoglobin determination [facility] Measurement of renal function [facility] Neutrophil count [facility] Neutrophil percent differential count [facility] PAP TEST PAP TEST Lab Rou tono with uncertain dates, antepartum Screening for cervical cancer Screening for human papillomavirus (HPV) 03/09/2024 2:20 PM EST [facility] Patient Education [facility] Work Phone: Patient referral [facility] Work Phone: Platelets [#/volume] in Blood [facility] Potassium [Moles/vol ume] in Serum or Plasma [facility] End: 10-03-2023 PT and aPTT panel - Platelet poor plasma by Coagulation assay Coagulation Screen Lab Routine Once (Lab) for 1 Occurrences starting 10/03/2023 until 10/03/2023 [facility] Work Phone: Comment on above: Once (Lab) for 1 Occurrences starting until 10/03/2023 Red blood cell count [facility] Red cell distributio n width determination [facility] Removal intrauterine device iud REMOVE INTRAUTERINE DEVICE Procedures Routine Ordered: 08/20/2023 [facility] Work Phone: Comment on above: Ordered: 08/20/2023 ROUTINE, GR OUP B STREP PCR ROUTINE, GROUP B STREP PCR Microbiology Routine 36 weeks gestation of 12/03/2022 3:17 PM EDT [facility] Work Phone: ROUTINE, GR OUP B STREPTOCOCCUS BY PCR ROUTINE, GROUP B STREPTOCOCCUS BY PCR Microbiology Routine Supervision of high risk in third trimester ([facility]) History of pulmonary embolism History of shoulder dystocia in prior Abnormality in heart rate or rhythm, antepartum ([facility]) Antepartum anemia complicating in third trimester ([facility]) Irregular uterine contractions ([facility]) 37 weeks gestation of ([facility]) 2024 3:02 PM EDT [facility] Work Phone: Sodium [Moles/volume ] in Serum or Plasma [facility] End: 06-19-2023 Stool Pathogen Panel, PCR Stool Pathogen Panel, PCR Microbiology STAT Once (Lab) for 1 Occurrences starting 06/19/2023 until 06/19/2023 [facility] Service Area Work Phone: Comment on above: Once (Lab) for 1 Occurrences starting until 06/19/2023 Surgical pathology study Surgica l Pathology Exam Pathology and Cytology Routine Symptomatic cholelithiasis Release Upon Ordering for 1 Occurrences starting 06/17/2023 [facility] Service [facility] Work Phone: Comment on above: Release Upon Ordering for 1 Occurrences starting 06/17/2023 Urea nitrogen [Mass/volume] in Serum or Plasma [facility] End: 06-18-2023 Urinalysis complete W Reflex Culture panel - Urine [facility] Service Area Work Phone: Comment on above: Once (Lab) for 1 Occurrences starting until 06/18/2023 End: 06-24-2023 Urinalysis complete W Reflex Culture panel - Urine [facility] Service [facility] Work Phone: Comment on above: Once (Lab) for 1 Occurrences starting until 06/24/2023 End: 02-18-2024 Urinalysis complete W Reflex Culture panel - Urine [facility] Work Phone: Comment on above: STAT (Lab) for 1 Occurrences starting until 02/18/2024 US.doppler Lower extremity vein - bilateral Vascular US Lower Extremity Venous Duplex Bilateral Vascular Ultrasound Routine Single subsegmental pulmonary embolism without acute cor pulmonale (Multi) Other pulmonary embolism without acute cor pulmonale (Multi) 07/09/2023 10:35 AM EDT [facility] Work Phone: End: 09-18-2024 XR Pelvis AP and Inlet and Outlet XR PELVIS 3V AP/INLET/OUTLET Radiology Routine Malpositioned IUD, sequela Pelvic pain in female 1 Occurrences starting 08/20/2023 until 09/18/2024 [facility] Comment on above: 1 Occurrences starting 08/20/2023 until 09/18/2024 XR Pelvis AP and Inl et and Outlet XR PELVIS 3V AP/INLET/OUTLET Radiology Routine Malpositioned IUD, sequela Pelvic pain in female 08/20/2023 10:18 AM EDT [facility] c [facility] c [facility] Immunizations Immunization Date Immunization Notes Care Provider Fa cili 07-27-2024 RHO(D) immune globul in- IV or IM Yamila Ballard MD Work Phone: [facility] 07-27-2024 tetanus toxoid, redu gerry diphtheria toxoid, and acellular pertussis vaccine, adsorbed Yamila Ballard MD Work Phone: [facility] 11-05-2022 tetanus toxoid, redu gerry diphtheria toxoid, and acellular pertussis vaccine, adsorbed Prabhu Ortez MD Work Phone: [facility] 05-17-2020 tetanus toxoid, redu gerry diphtheria toxoid, and acellular pertussis vaccine, adsorbed Mitra Reed APRN.[employer] Work Phone: [facility] 07-10-2017 tetanus toxoid, redu gerry diphtheria toxoid, and acellular pertussis vaccine, adsorbed Steven Rojas [employer] Work Phone: [facility] 10-08-2016 Human Papillomavirus 9-valent vaccine Steven Rojas APRN.[facility] Work Phone: [facility] Work Phone: 10-08-2016 influenza, injectabl e, quadrivalent, contains preservative Steven Rojas [employer] Work Phone: [facility] Work Phone: 10-08-2016 influenza virus vacc ine, unspecified formulation Lianet Heller APRN.[facility] Work Phone: [facility] 10-02-2015 hepatitis A vaccine, pediatric/adolescent dosage, 2 dose schedule Steven Rojas APRN.[facility] Work Phone: [facility] 10-02-2015 Human Papillomavirus 9-valent vaccine Steven Rojas APRN.[facility] Work Phone: [facility] 10-02-2015 meningococcal polysaccharide (groups A, C, Y and W-135) diphtheria toxoid conjugate vaccine (MCV4P) Steven Rojas [employer] Work Phone: [facility] 10-02-2015 tetanus toxoid, redu gerry diphtheria toxoid, and acellular pertussis vaccine, adsorbed Steven Rojas [employer] Work Phone: [facility] 09-15-2008 diphtheria, tetanus toxoids and acellular pertussis vaccine, 5 pertussis antigens Steven Rojas [employer] Work Phone: [facility] 09-15-2008 diphtheria, tetanus toxoids and acellular pertussis vaccine, unspecified formulation Mitra Reed [employer] Work Phone: [facility] 09-15-2008 hepatitis A vaccine, pediatric/adolescent dosage, 2 dose schedule Steven Rojas APRN.[facility] Work Phone: [facility] 09-15-2008 hepatitis A vaccine, unspecified formulation Mitra Reed [employer] Work Phone: [facility] 09-15-2008 measles, mumps and rubella virus vaccine Steven Carnesenedelia [employer] Work Phone: [facility] 09-15-2008 poliovirus vaccine, inactivated Steven Hassanleannenedelia [employer] Work Phone: [facility] 09-15-2008 poliovirus vaccine, unspecified formulation Mitra Tritemitope [employer] Work Phone: [facility] 09-15-2008 varicella virus vaccine Bartolome kevin Pendmasoud [employer] Work Phone: [facility] 05-07-2006 pneumococcal conjuga te vaccine, 13 valent Steven Sonyaleannenedelia [employer] Work Phone: [facility] 05-07-2006 pneumococcal conjuga te vaccine, 7 valent Mitra Reed [employer] Work Phone: [facility] 05-07-2006 varicella virus vaccine Bartolome kevin Rojas [employer] Work Phone: [facility] 11-14-2004 diphtheria, tetanus toxoids and acellular pertussis vaccine, 5 pertussis antigens Steven Triceenedelia [employer] Work Phone: [facility] 11-14-2004 diphtheria, tetanus toxoids and acellular pertussis vaccine, unspecified formulation Mitra Tritemitope [employer] Work Phone: [facility] 12-28-2003 haemophilus influenz ae type b vaccine, conjugate unspecified formulation Mitra Tritemitope [employer] Work Phone: [facility] 12-28-2003 haemophilus influenz ae type b vaccine, HbOC conjugate Steven Rojas [employer] Work Phone: [facility] 12-28-2003 measles, mumps and rubella virus vaccine Steven Hassanleannenedelia [employer] Work Phone: [facility] 12-28-2003 poliovirus vaccine, inactivated Steven Hassanleannenedelia [employer] Work Phone: [facility] 08-31-2003 diphtheria, tetanus toxoids and acellular pertussis vaccine, 5 pertussis antigens Steven Pendlebury [employer] Work Phone: [facility] 08-31-2003 diphtheria, tetanus toxoids and acellular pertussis vaccine, unspecified formulation Mitra Trill [employer] Work Phone: [facility] 08-31-2003 haemophilus influenz ae type b conjugate and Hepatitis B vaccine Mitra Trill [employer] Work Phone: [facility] 08-31-2003 haemophilus influenz ae type b vaccine, HbOC conjugate Steven Pendlebury [employer] Work Phone: [facility] 08-31-2003 hepatitis B vaccine, pediatric or pediatric/adolescent dosage Steven Pendlebury [employer] Work Phone: [facility] 08-31-2003 pneumococcal conjuga te vaccine, 13 valent Steven Pendlebury [employer] Work Phone: [facility] 08-31-2003 pneumococcal conjuga te vaccine, 7 valent Mitra Trill [employer] Work Phone: [facility] 03-21-2003 diphtheria, tetanus toxoids and acellular pertussis vaccine, 5 pertussis antigens Steven Pendlebury [employer] Work Phone: [facility] 03-21-2003 diphtheria, tetanus toxoids and acellular pertussis vaccine, unspecified formulation Mitra Trill [employer] Work Phone: [facility] 03-21-2003 haemophilus influenz ae type b vaccine, conjugate unspecified formulation Mitra Trill [employer] Work Phone: [facility] 03-21-2003 haemophilus influenz ae type b vaccine, HbOC conjugate Steven Pendlebury [employer] Work Phone: [facility] 03-21-2003 pneumococcal conjuga te vaccine, 13 valent Steven Pendlebury [employer] Work Phone: [facility] 03-21-2003 pneumococcal conjuga te vaccine, 7 valent Mitra Tritemitope [employer] Work Phone: [facility] 03-21-2003 poliovirus vaccine, inactivated Steven Pendleannenedelia [employer] Work Phone: [facility] 2002 diphtheria, tetanus toxoids and acellular pertussis vaccine, 5 pertussis antigens Steven Pendmasoud [employer] Work Phone: [facility] 2002 diphtheria, tetanus toxoids and acellular pertussis vaccine, unspecified formulation Mitra Trill [employer] Work Phone: [facility] 2002 haemophilus influenz ae type b vaccine, HbOC conjugate Steven Sonyayale [facility] [employer] Work Phone: [facility] 2002 hepatitis B vaccine, pediatric or pediatric/adolescent dosage Steven Pendlebury [employer] Work Phone: [facility] 2002 pneumococcal conjuga te vaccine, 13 valent [facility] [employer] Work Phone: [facility] 2002 poliovirus vaccine, inactivated Steven Hassanyale [facility] [employer] Work Phone: [facility] 2002 hepatitis B vaccine, pediatric or pediatric/adolescent dosage [facility] [employer] Work Phone: [facility] Payers Date Payer Category Payer Self-pay [id number] 2021 Medicaid (Managed Care) 1.2. 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 2007 Medicaid [facility] MEDICAID [id number] 2007-Present [phone] [address] [place] [address] Medicaid [id number] 2007 Medicaid [id number]. [id number] 2002 Unknown [id number] 2.16.840.1.407557.3.579.2. 1069 2002 Unknown [id number] 2.16.840.1.435051.3.579.2. 1245 2002 Unknown [id number] 2.16.840.1.884021.3.579.2. 1246 2002 Unknown [id number] 2.16.840.1.898232.3.579.2. 1246 2002 Unknown [id number] 2.16.840.1.949835.3.579.2. 1242 2002 Unknown [id number] 2.16.840.1.329332.3.579.2. 3 2002 Unknown [id number] 2.16.840.1.878867.3.579.2. 1242 2002 Unknown [id number] 2.16.840.1.748517.3.579.2. 124 2002 Unknown [id number] 2.16.840.1.892765.3.579.2. 1242 2002 Unknown [id number] 2.16.840.1.445956.3.579.2. 1242 2002 Unknown [id number] 2.16.840.1.334837.3.579.2. 124 2002 Unknown [id number] 2.16.840.1.269152.3.579.2. 1243 2002 Unknown [id number] 2.16.840.1.869773.3.579.2. 1243 2002 Unknown [id number] 2.16840.1.026075.3.579.2. 1243 2002 Unknown [id number] 2.16840.1.457678.3.579.2. 124 2002 Unknown [id number] 2.0.1.462024.3.579.2. 124 2002 Unknown [id number] 2.0.1.006364.3.579.2. 1243 2002 Unknown [id number] 2.0.1.619611.3.579.2. 1243 2002 Unknown [id number] 2.0.1.836347.3.579.2. 903 2002 Unknown [id number] 2.0.1.710522.3.579.2. 983 Unknown [id number] Unknown [id number] Unknown [id number] Unknown [id number] Unknown [id number] 2.0.1.688780.3.579.2. 462 Unknown [id number] 2.0.1.954368.3.579.2. 462 Unknown [id number] 2.0.1.853933.3.579.2. 462 Unknown [id number] 2.0.1.233561.3.579.2. 462 Unknown [id number] 2.0.1.918124.3.579.2. 462 Social History Date Type Detail Facility [facility] Start: 01-07-2021 End: 06-22-2023 Tobacco smoking consumption unknown [facility] Start: 2002 Sex Assigned At Female [facility] Start: 11-12-2021 End: 06-03-2023 Tobacco smoking status NHIS Never smoked tobacco [facility] Work Phone: Start: 08-14-2021 End: 09-09-2024 Alcohol intake Current non-drinker of alcohol (finding) [facility] Start: 10-29-2007 End: 11-12-2021 Tobacco Comment mom smokes outside [facility] Start: 2002 Sex Assigned At Not on file [facility] History of tobacco use Passive smoker [facility] Start: 11-12-2021 End: 06-03-2023 Tobacco use and exposure Smokeless tobacco non-user [facility] Start: 04-03-2022 [facility] Start: 08-11-2017 None [facility] Start: 08-18-2022 End: 10-10-2022 History of Social function [facility] Start: 08-18-2022 End: 10-10-2022 Tobacco use panel [facility] Start: 01-12-2012 Retired 03/11/2019 PHQ Score 0 [facility] Start: 06-03-2023 End: 09-03-2023 Tobacco smoking status NHIS Ex-smoker [facility] Work Phone: End: 02-10-2022 History of tobacco use Current smoker [facility] Work Phone: End: 02-10-2022 History of tobacco use Cigarette Smoker [facility] Work Phone: Start: 06-03-2023 End: 08-21-2023 Alcoholic beverage intake Lifetime non-drinker (finding) [facility] Work Phone: Start: 05-24-2023 End: 02-18-2024 Exposure to SARS-CoV-2 (event) Not sure [facility] Start: 06-03-2023 Tobacco Comment Vapes [facility] Start: 06-12-2023 End: 09-03-2023 Tobacco use and exposure User of smokeless tobacco [facility] Work Phone: How often to you hav e a drink containing alcohol? Never [facility] In the past 12 month s, was there a time when you were not able to pay the mortgage or rent on time? No [facility] Work Phone: Start: 06-24-2023 End: 07-02-2023 Tobacco smoking status NHIS Smokes tobacco daily [facility] Work Phone: Start: 07-02-2023 Tobacco Comment vape [facility] Work Phone: Start: 09-18-2023 End: 2024 Alcohol intake Ex-drinker (finding) [facility] Start: 03-05-2024 Education 13 [facility] Start: 08-19-2018 Gender identity Identifies as female gender (finding) [facility] Start: 03-05-2024 Sexual orientation Heterosexual (finding) [facility] Start: 02-16-2016 Sex Female (finding) [facility] Goals Date Patient Goal Desired Activity /State Personal health goal Personal health goal Personal health goal Functional Status Date Assessment Result Facility 09-09-2024 Are you deaf, or do you have serious difficulty hearing No 09/09/2024 7:47 PM Candy Coats, KELLI [facility] 09-09-2024 Are you blind, or do you have serious difficulty seeing, even when wearing glasses No 09/09/2024 7:47 PM Candy Coats, KELLI [facility] 09-09-2024 Do you have serious difficulty walking or climbing stairs No 09/09/2024 7:47 PM Candy Coats, [facility]I [facility]-09-[facility]24 Do you have difficul ty dressing or bathing No 09/09/2024 7:47 PM Candy Coats, KELLI [facility] 09-09-2024 Because of a physica l, mental, or emotional condition, do you have difficulty doing errands alone such as visiting a physician's office or shopping No 09/09/2024 7:47 PM Candy Coats, KELLI [facility] Mental Status Date Assessment Result Facility 09-09-2024 Because of a physica l, mental, or emotional condition, do you have serious difficulty concentrating, remembering, or making decisions No 09/09/2024 7:47 PM EDT Candy Chou RN [facility] 06-22-2023 Cognitive function Voice/Name [facility] Work Phone: Clinical Notes 07-01-2017 to 10-05-2024 Joyce Huston MA - 10/05/2024 11:54 AM EDTPrenatal Quick Notes - Jaquelin Hi APRN.CN - 09/28/2024 12:32 PM EDTPrenatal Quick Notes - Jaquelin Hi APRN.CN - 09/28/2024 12:32 PM EDT Note Date & Type Note Facility 10-05-2024 History of Present illness Narrative POPULATION HEALTH NAVIGATION OUTREACH Action/FYI Director Of Emergency Nursing updated per documentation. Reason for Outreach Medicaid OB/Peds Care Gaps due: N/A Patient Contacted: Unable or unnecessary to reach patient: [place] seam feller added Navigation Signature: Joyce Briones MA October 05, 2024 11:54 AM documented in this encounter [facility] 09-28-2024 Progress note Formatting of t his [...] call RTO for visit Jaquelin Hi APRN.CNM [facility] 09-28-2024 Miscellaneous Notes d ITZEL-S: Keagan Alicia [...] Jaquelin Hi APRN.CNM documented in this encounter [facility] 09-28-2024 Instructions Jaquelin Hi APRN.CNM - 09/28/2024 [...] the above symptoms, contact our office at [phone] and ask to speak with a nurse. After hours, you can call doctors registry at [phone] OR call [facility] at [phone] and ask to have the doctor organic section technical lead paged. If you consider this an emergency, dial 9-2-1 or go to your nearest emergency department. NEED HELP? Are you dealing with a violent or abusive relationship? Are you a victim of rape or sexual assult? Call [facility] ([facility] 24 hour Crisis Hotline: 789.878.8844 or 351-826-2836. MANUAL Your Guide to a Healthy manual is now on-line. Visit [email or web address] [email or web address] to download your free copy documented in this encounter [facility] 2024 Note [facility] Medical Records Department [address] [place] [address] History Physical Exam 09/22/24 1432 MR#: [id number] Acct: [id number] Name: KEAGAN ALICIA Rep #: [id number] : 2000 24 From: Yamila Ballard MD PCP: ZIA Duke Status:PRE IN Location: [facility] History and Physical Date of Admission: 10/07/24 HPI: The patient is a 24 year old female presenting for pre-operative visit. She is scheduled for and tubal sterilization for h/o shoulder dysotocia, LGA fetus on 10/07/24. Procedure discussed along with risks, benefits and complications. Other alternatives discussed for management. Consent form signed? Yes. ? PAST MEDICAL HISTORY PAST MEDICAL HISTORYDiagnosisDate???Anemia?Chronic tonsillitis?Vdlkdqngxu43/29/ 2017???Gall stone07/2022???cholecystectomy after delivery???GERD (gastroesophageal reflux disease)?H/O shoulder dystocia in prior , currently ([facility])12/14/22???Hemorrhoids? History of back problems ?History of depression?History of shoulder dystocia in prior pregnancy03/10/2024???Kidney stones?Paroxysmal SVT (supraventricular tachycardia) ([facility])?Postoperative pulmonary embolism ([facility])06/2023???Psychiatric disorder?depression, anxiety and PTSD ? PAST SURGICAL HISTORY PAST SURGICAL HISTORYProcedureLateralityDate??? CHOLECYST[facility]OMY [facility]09/15/2023???PT ED HEART AND VASCULAR???10/03/2023???[facility] HX? [...] trimester: (2) Shoulder (more content not included)... [facility] 2024 Progress note Formatting of t his note might be different from the original. RR- VB No. LOF No. CTXS cont. to be the same for 2 weeks. Movement: present. Other c/o: mild edema, mild DRAPER intermittent Medication list reviewed. SENSITIVE EXAM: The sensitive examination was discussed with the Patient or Patient's Authorized Timber Management Specialist. As applicable, any other physician, advance practice provider, medical student, or other health professional student that will be observing or involved in the sensitive examination for educational or training purposes was discussed with the Patient or Authorized Timber Management Specialist. The Patient or Authorized Timber Management Specialist has agreed to proceed with the sensitive [...] vaginal dicscharge, orders entered Yamila Ballard MD [facility] 2024 Miscellaneous Notes RR- VB No. LOF No. CTXS cont. to be the same for 2 weeks. Movement: present. Other c/o: mild edema, mild DRAPER intermittent Medication list reviewed. SENSITIVE EXAM: The sensitive examination was discussed with the Patient or Patient's Authorized Timber Management Specialist. As applicable, any other physician, advance practice provider, medical student, or other health professional student that will be observing or involved in the sensitive examination for educational or training purposes was discussed with the Patient or Authorized Timber Management Specialist. The Patient or Authorized Timber Management Specialist has agreed to proceed with the sensitive examination. (Sensitive examination includes inspection and/or palpation of the breasts, pelvis, prostate and anorectal regions). Physical Exam See Flow Sheet Abd: soft, nontender, gravid Ext: edema: 1+ A/P 37w0d Estimated Date of Delivery: 10/13/24 ASSESSMENT/PLAN: 1. Supervision of high risk in third trimester ([facility]) - ICD9: V23.9, ICD10: O09.93 (primary diagnosis) [...] Abnormality in heart rate or rhythm, antepartum ([facility]) - ICD9: 659.73, ICD10: O36.8390 - URINE OB DIP B/O - ROUTINE, GROUP B STREPTOCOCCUS BY PCR 5. Antepartum anemia complicating in third trimester ([facility]) - ICD9: 648.23, 285.9, ICD10: O99.013 finished fe infusions - URINE OB DIP B/O - ROUTINE, GROUP B STREPTOCOCCUS BY PCR 6. Irregular uterine contractions ([facility]) - ICD9: 644.10, ICD10: O47.9 if increased to L&D or return for eval - URINE OB DIP B/O - ROUTINE, GROUP B STREPTOCOCCUS BY PCR 7. 37 weeks gestation of ([facility]) - ICD9: V22.2, ICD10: Z3A.37 decision for surgery today - URINE OB DIP B/O - ROUTINE, GROUP B STREPTOCOCCUS BY PCR 8. vaginal dicscharge, orders entered Yamila Ballard MD documented in this encounter [facility] 2024 History and physical note Pre-Op History [...] H/O shoulder dystocia in prior , currently ([facility]) 12/14/22 Hemorrhoids History of back problems History of depression History of shoulder dystocia in prior 03/10/2024 Kidney stones Paroxysmal SVT (supraventricular tachycardia) ([facility]) Postoperative pulmonary embolism ([facility]) 06/2023 Psychiatric disorder depression, anxiety and PTSD PAST SURGICAL HISTORY Procedure Laterality Date [facility]ST[facility]Y [facility]15/2023 PT ED HEART AND [...] times per week Types: Marijuana Comment: smoking [facility] 2024 History and physical note Pre-Op History [...] H/O shoulder dystocia in prior , currently ([facility]) 12/14/22 Hemorrhoids History of back problems History of depression History of shoulder dystocia in prior 03/10/2024 Kidney stones Paroxysmal SVT (supraventricular tachycardia) ([facility]) Postoperative pulmonary embolism ([facility]) 06/2023 Psychiatric disorder depression, anxiety and PTSD PAST SURGICAL HISTORY Procedure Laterality Date CHOLECYSTECTOMY HX [facility] 09/15/2023 PT ED HEART AND [...] Marijuana Comment: smoking documented in this encounter [facility] 2024 Instructions Alfreda Licea MA - 2024 10:47 AM EDT SEQUENTIAL SCREENINGS The [facility] offers sequential screenings for women who are [...] It will require an appointment with our integrated pest management technician. This is not an ultrasound performed [...] the above symptoms, contact our office at [phone] and ask to speak with a nurse. After hours, you can call doctors registry at [phone] OR call [facility] at [phone] and ask to have the doctor organic section technical lead paged. If you consider this an emergency, dial or go to your nearest emergency department. NEED HELP? Are you dealing with a violent or abusive relationship? Are you a victim of rape or sexual assult? Call [facility] ([place]) 24 hour Crisis Hotline: 425.183.9244 or 873-684-4715. MANUAL Your Guide to a Healthy manual is now on-line. Visit the [email or web address] ncyGuide to download your free copy documented in this encounter [facility] 09-21-2024 Telephone encounter Note 36w6d Received a fax from [facility] for patient's records. Patient is scheduled for her Pre Op with RR tomorrow for her C/S scheduled on 10/07. Left message for patient to call the office. Is she transferring care? Chantelle Marquis RN [facility] 09-21-2024 Miscellaneous Notes 36w6d Received a fax from [facility] for patient's records. Patient is scheduled for her Pre Op with RR tomorrow for her C/S scheduled on 10/07. Left message for patient to call the office. Is she transferring care? Chantelle Marquis, KELLI documented in this encounter [facility] 09-19-2024 History and physi hoda note [facility] 09-16-2024 Note HNO ID: [id number] Author: NAYELY GIL PA-C Service: ? Author Type: Physician Threshing Machine Operator Type: Progress Notes Filed: 09/16/2024 11:22 Note Text: [facility] DEPARTMENT OF PATIENT BLOOD MANAGEMENT FOLLOW-UP DISTANCE HEALTH VISIT I have communicated my name and active licensure. The patient's identity and physical location were verified at the time of this visit. No patient name on file. or their legal sales representative sales manager has been informed of the risks and benefits of -- and alternatives to -- treatment through a remote evaluation and consents to proceed with the evaluation remotely. This is a virtual visit using [employer] Zoom Video Visit. It required patient-provider interaction [...] H/O shoulder dystocia in prior , currently ([facility]) 12/14/22 Hemorrhoids History of back problems History of depression History of shoulder dystocia in prior 03/10/2024 Kidney stones Paroxysmal SVT (supraventricular tachycardia) ([facility]) Postoperative pulmonary embolism ([facility]) 06/2023 Psychiatric disorder depression, anxiety and PTSD PAST SURGICAL HISTORY Procedure Laterality Date CHOLECYSTECTOMY HX [facility]/15/2023 PT ED HEART AND [...] no distress, w (more content not included)... [facility] 09-11-2024 Note Obstetrics History a [...] no significant decelerations noted at this time. [place]: No contractions. Labs: Labs from the last [...] AUTHENTICATED BY JULIANE DARBY, ON 09/11/2024 11:19:25 [facility] 09-09-2024 Miscellaneous Notes Patient ambulates off unit at this time with discharge AVS in hand. Discharge education given to patient. Reviewed signs of labor and UTIs in . Encouraged patient to call primary provider tomorrow regarding contractions and possible UTI. Patient agreeable. Encouraged patient to return for second dose of betamethasone tomorrow. Patient states returning to primary residence in [place], [place] tomorrow. Encouraged patient to go to [...] an obstetric provider in another town in [place] with last appointment being 09/08/2024. Patient reports history of a shoulder dystocia with previous delivery and that this fetus is large for dates and that she was planning to do a at term for this infant. Patient ambulates on to unit at this time, height and weight obtained. Patient oriented to room 215. documented in this encounter [facility] 09-09-2024 Nurse Note Patient ambulates off unit at this time with discharge AVS in hand. [facility] 09-09-2024 Nurse Note Discharge education given to patient. Reviewed signs of labor and UTIs in . Encouraged patient to call primary provider tomorrow regarding contractions and possible UTI. Patient agreeable. Encouraged patient to return for second dose of betamethasone tomorrow. Patient states returning to primary residence in [place], [place] tomorrow. Encouraged patient to go to nearest L&D for second dose of betamethasone tomorrow 24 hours after initial dose (around 2130 tomorrow night), patient agreeable. Patient declines questions or concerns. Discharge AVS signed by patient. [facility] 09-09-2024 Nurse Note Call placed to Dr. Kelly and updated on patient's cervical exam unchanged, but continued contractions. Dr. Kelly orders a one time dose of macrobid and a one time dose of vistaril and states patient may discharge home on labor precautions and follow up with primary OB tomorrow. T [facility] 09-09-2024 Nurse Note Call placed to LUZ [...] hours and to call back with results. [facility] 09-09-2024 Nurse Note Patient reports contractions [...] to seeing an obstetric provider in another [facility] in [place] with last appointment being 09/08/2024. Patient reports history of a shoulder dystocia with previous delivery and that this fetus is large for dates and that she was planning to do a at term for this infant. [facility] 09-09-2024 Nurse Note Patient ambulates on to unit at this time, height and weight obtained. Patient oriented to room 215. [facility] 09-09-2024 History and physi hoda note [facility] 09-09-2024 Telephone encounter Note Thank you, Jaquelin Hi APRN.CNM [facility] 09-09-2024 Miscellaneous Notes Thank you, Jaquelin [...] c/s on 10/07. documented in this encounter [facility] 09-09-2024 Telephone encounter Note Ob patient is 35w1d called stating I think my water broke reports a constant dampness pantiess since waking up and stated that bed linens were damp when she woke up and having irregular contractions. Discussed with Jaquelin Hi. Patient was told to go to L&D for evaluation. Patient is scheduled for a repeat c/s on 10/07. [facility] 09-08-2024 Note HNO ID: [id number] Author: GINO VALERO APRN.CNM Service: ? Author Type: Manager Product Support Type: Progress Notes Filed: 09/08/2024 12:56 Note Text: NST SUMMARY PROVIDER ASSESSMENT AND INTERPRETATION Keagan Alicia is a 23 year old female, , who is at 35w0d with an LUZ of 10/13/2024, by Last Menstrual Period dating method. Indications for NST: Other: contractions Baseline: 140 Variability: Moderate Accelerations: Present 15 X 15 Decelerations: None Contractions: TOCO: Irregular Interpretation: Reactive SIGNATURE: Gino Valero APRN.CNM [facility] 09-08-2024 History of Present illness [...] Gino Valero APRN.CNM documented in this encounter [facility] 09-08-2024 Progress note Formatting of t his [...] or sooner if needed Gino Valero APRN.CNM [facility] 09-08-2024 Miscellaneous Notes S: Keagan Alicia is [...] Gino Valero APRN.CNM documented in this encounter [facility] 09-08-2024 Instructions Alisha Jordan LPN - 09/08/2024 9:48 AM EDT SEQUENTIAL SCREENINGS The [facility] offers sequential screenings for women who are [...] It will require an appointment with our integrated pest management technician. This is not an ultrasound performed [...] the above symptoms, contact our office at [phone] and ask to speak with a nurse. After hours, you can call doctors registry at [phone] OR call [facility] at [phone] and ask to have the doctor organic section technical lead paged. If you consider this an emergency, dial 9-1-6 or go to your nearest emergency department. NEED HELP? Are you dealing with a violent or abusive relationship? Are you a victim of rape or sexual assult? Call [facility] ([facility] 24 hour Crisis Hotline: 475.389.9354 or 050-594-2031. MANUAL Your Guide to a Healthy manual is now on-line. Visit the [email or web address] ncyGuide to download your free copy documented in this encounter [facility] 09-08-2024 Miscellaneous Notes RR- VB No. LOF No. CTXS No. Movement: present. Other c/o: No. Medication list reviewed. SENSITIVE EXAM: Sensitive exam not performed. Physical Exam See Flow Sheet Abd: soft, nontender, gravid Ext: edema: Trace A/P 35w0d Estimated Date of Delivery: 10/13/24 Assessment & Plan 34 weeks gestation of ([facility]) Orders: URINE OB DIP B/O Supervision of high risk in third trimester ([facility]) Orders: URINE OB DIP B/O History of [...] Yamila Ballard M.D. documented in this encounter [facility] 09-08-2024 Progress note Formatting of t his [...] Supervision of high risk in third trimester ([facility]) Orders: URINE OB DIP B/O History of [...] to proceed w/ c/s Yamila Ballard M.D. [facility] 09-07-2024 Note Indication Evaluation of growth history [...] 3 oz EFW by: Hadlock (HC-AC-FL) Extended Small Engine Mechanic 6.8 mm Extremities / Bony Struc [place] [...] 09/07/2024 2:40 PM EDT SEQUENTIAL SCREENINGS The [facility] offers sequential screenings for women who are [...] It will require an appointment with our integrated pest management technician. This is not an ultrasound performed [...] the above symptoms, contact our office at [phone] and ask to speak with a nurse. After hours, you can call doctors registry at [phone] OR call [facility] at [phone] and ask to have the doctor organic section technical lead paged. If you consider this an emergency, dial 0-1-7 or go to your nearest emergency department. NEED HELP? Are you dealing with a violent or abusive relationship? Are you a victim of rape or sexual assult? Call [facility] ([place]) 24 hour Crisis Hotline: 782.885.2869 or 099-288-0174. MANUAL Your Guide to a Healthy manual is now on-line. Visit the [email or web address] ncyGuide to download your free copy SEQUENTIAL SCREENINGS The [facility] offers sequential screenings for women who are [...] It will require an appointment with our integrated pest management technician. This is not an ultrasound performed [...] the above symptoms, contact our office at [phone] and ask to speak with a nurse. After hours, you can call doctors registry at [phone] OR call [facility] at [phone] and ask to have the doctor organic section technical lead paged. If you consider this an emergency, dial 10-11- or go to your nearest emergency department. NEED HELP? Are you dealing with a violent or abusive relationship? Are you a victim of rape or sexual assult? Call [facility] ([place]) 24 hour Crisis Hotline: 738.883.9056 or 540-765-8116. MANUAL Your Guide to a Healthy manual is now on-line. Visit the [email or web address] ncyGuide to download your free copy documented in this encounter [facility] 08-24-2024 Note HNO ID: [id number] Author: YOSHI WEST RN Service: ? Author [...] placed. Denies questions or needs. Ambulated to [facility], no concerns. [facility] 08-24-2024 History of Present illness Narrative [...] placed. Denies questions or needs. Ambulated to [facility], no concerns. documented in this encounter [facility] 08-24-2024 Progress note Formatting of t his [...] PTL & FM precautions Prabhu Ortez MD [facility] 08-24-2024 Miscellaneous Notes KJ - S: Keagan [...] Prabhu Ortez MD documented in this encounter [facility] 08-24-2024 Instructions Deepthi Callahan MA - 08/24/2024 10:42 AM EDT SEQUENTIAL SCREENINGS The [facility] offers sequential screenings for women who are [...] It will require an appointment with our integrated pest management technician. This is not an ultrasound performed [...] the above symptoms, contact our office at [phone] and ask to speak with a nurse. After hours, you can call doctors registry at [phone] OR call [facility] at [phone] and ask to have the doctor organic section technical lead paged. If you consider this an emergency, dial 9--1 or go to your nearest emergency department. NEED HELP? Are you dealing with a violent or abusive relationship? Are you a victim of rape or sexual assult? Call [facility] ([place]) 24 hour Crisis Hotline: 361.475.3894 or 691-234-4736. MANUAL Your Guide to a Healthy manual is now on-line. Visit the [email or web address] ncyGuide to download your free copy documented in this encounter [facility] 08-20-2024 Note HNO ID: [id number] Author: YOSHI WEST RN Service: ? Author [...] after this dose. PIV removed, DSD place. [facility] 08-20-2024 History of Present illness Narrative [...] removed, DSD place. documented in this encounter [facility] 08-17-2024 Note HNO ID: [id number] Author: YOSHI WEST RN Service: ? Author Type: Registered Nurse Type: Progress Notes Filed: 08/17/2024 15:31 Note Text: Pt arrived in stable condition. VSS. Appears well, Pt states the evening after 1st dose of iron she developed itching/pruritus without hives or rash. OBgyn organic section technical lead notified and pt took benedryl and zyrtec [...] no concerns or need noted. Ambulated to [facility]. [facility] 08-17-2024 History of Present illness Narrative Pt arrived in stable condition. VSS. Appears well, Pt states the evening after 1st dose of iron she developed itching/pruritus without hives or rash. OBgyn organic section technical lead notified and pt took benedryl and zyrtec [...] no concerns or need noted. Ambulated to [facility]. documented in this encounter [facility] 08-12-2024 Note HNO ID: [id number] Author: YOSHI WEST RN Service: ? Author [...] pain, chills or discomfort. Pt ambulated to [facility] no concerns. [facility] 08-12-2024 History of Present illness Narrative [...] pain, chills or discomfort. Pt ambulated to [facility] no concerns. documented in this encounter [facility] 08-10-2024 Progress note Formatting of t his [...] PTL & FM precautions Prabhu Ortez MD [facility] 08-10-2024 Miscellaneous Notes KJ - S: Keagan [...] than prior infant. Paroxysmal SVT (supraventricular tachycardia) ([facility]) On metoprolol Reviewed PTL & FM precautions Prabhu Ortez MD documented in this encounter [facility] 08-10-2024 Instructions Alyx Cordero MA - 08/10/2024 11:25 AM EDT SEQUENTIAL SCREENINGS The [facility] offers sequential screenings for women who are [...] It will require an appointment with our integrated pest management technician. This is not an ultrasound performed [...] the above symptoms, contact our office at [phone] and ask to speak with a nurse. After hours, you can call [facility] at [phone] OR call [facility] at [phone] and ask to have the doctor organic section technical lead paged. If you consider this an emergency, dial 9-1-4 or go to your nearest emergency department. NEED HELP? Are you dealing with a violent or abusive relationship? Are you a victim of rape or sexual assult? Call [facility] ([place]) 24 hour Crisis Hotline: 586.376.8627 or 426-486-0837. MANUAL Your Guide to a Healthy manual is now on-line. Visit the [email or web address] ncyGuide to download your free copy documented in this encounter [facility] 08-05-2024 Instructions Nayely Gil PA-C - 08/05/2024 3:25 PM EDT Images from the original note were not included. Summary of today's visit: - You have iron deficiency anemia and require IV iron infusions. - We are in the process of arranging IV iron infusions for you at [facility]. Once the clinic has processed the referral, someone will contact you to schedule appointments. Insurance preauthorization may be required and can take 7 - 14 days. Please call the infusion center directly at [phone] to schedule an appointment if you don't [...] with multiples. Not consuming enough iron. Having gbea-qa-jayo pregnancies with minimal time between. Experiencing a [...] notice a change? If you have iron-deficiency, D40-nwxdytyrzs or folate-deficiency anemia, you should begin to [...] any other symptoms, talk to your provider. [place] / Prognosis What is the outlook for [...] best supplement for you. [facility] Administration You may be slightly anemic during because blood volume increases by 20% to 30%. Keeping your diet rich in iron, vitamin C and B vitamins helps correct and prevent anemia. Taking a daily vitamin can help, too. Talk to your provider about your risk of anemia during and any concerns you may have. Information obtained from: [facility] (https://my.[facility].org/h ealth/diseases/74365-evpkvm-njosf g-). References José Miguel NM, Edwin MM. The impact of maternal iron deficiency and iron deficiency anemia on child's health (https://www.ncbi.nlm.nih.gov/pmc /articles/UWQ7464759/). Saudi Med J. 2015;36(2):146-149. Accessed 07/05/2021. [place] College of Gastroenterology. Peptic Ulcer Disease (https://gi.org/topics/peptic-ulc er-disease/). Accessed 07/05/2021. Portuguese Association. Anemia During (https://americanpregnancy.org/he althy-/-concern s/akrcdm-lquzxk-ulhmlzjik/). Accessed 07/05/2021. [place] Society of Hematology. Anemia and (https://www.hematology.org/educa tion/patients/anemia/). Accessed 07/05/2021. Coreen Kenyon. Chronic Anemia (https://www.ncbi.nlm.nih.gov/sosa ks/LBE797880/). [Updated 2020Sep 20]. In: Autotask [Internet]. [facility]): Academy of Inovation; 2020. Accessed 07/05/2021. March Nvigen. Anemia (https://www.marchofdiKiwiple.org/com plications/anemia.aspx). Accessed 07/05/2021. National [place] of Diabetes and Digestive and Kidney Diseases. [...] can easily correct the condition with treatment. Odell / Prognosis What s the outlook for [...] need to see another specialist like a hat block bench hand or parachutist/combatant diver qualified if bleeding is determined to be the [...] start to feel better? A note from [facility] We all have days when our responsibilities outweigh the amount of energy we have. But if you have iron-deficiency anemia, you might not be able to shake those feelings of fatigue. Tell your healthcare provider if you re tired all the time. They can run tests to determine a cause and recommend appropriate treatment. Information obtained from [facility] (https://my.[facility].org/h ealth/diseases/08912-ltgz-lscrawe ncy-anemia) References [place] Society of Hematology. Iron (https://www.hematology.org/educa tion/patients/anemia/iron-deficie ncy)- (https://www.hematology.org/educa tion/patients/anemia/iron-deficie ncy)Deficiency Anemia (https://www.hematology.org/educa tion/patients/anemia/iron-deficie ncy). (https://www.hematology.org/educa tion/patients/anemia/iron-deficie ncy) Accessed 01/21/2024. Syrmo Manual, Professional Version. Iron Deficiency Anemia (https://www.Inventic/pro fessional/jualdcaprv-kyr-jytocoom /qvnjldz-dkabpg-bk-deficient-eryt hropoiesis/zldz-xxvovbamzb-cbgplz ). (https://www.Inventic/pro fese2e Materialsonal/mkgibccijs-euy-qxfeppvn /augdfjf-cnlamz-eu-deficient-eryt hropoiesis/zqdq-kyebvwwwtm-spihba ) Last reviewed 07/2022. Accessed 01/21/2024. National Heart, Lung, and Blood [place] ([place].S.). Iron (https://www.nhlbi.nih.gov/health /anemia/vpva-aazlpngbbw-kgjgpi)- (https://www.nhlbi.nih.gov/health /anemia/niuy-mebidwrcjo-jwhmmj)De ficiency Anemia (https://www.nhlbi.nih.gov/health /anemia/zcdr-nrhxvaslpb-rhniov). (https://www.nhlbi.nih.gov/health /anemia/lmdm-jpxmtkfpul-ftczfl) Last updated 05/03/2021. Accessed 01/21/2024. Lucia Pereira. Iron Supplementation (https://www.ncbi.nlm.nih.gov/sosa isaura/PMZ265629/). (https://www.ncbi.nlm.nih.gov/sosa isaura/TKY836116/) In: Autotask [Internet]. [place] Academy of Inovation; 2023-. Accessed 01/21/2024. Iron Infusion Iron is [...] rash over your entire body). Recovery and Odell How long does it take to recover from an iron infusion? People usually feel better a few days to a week after an iron infusion. When To Call the Doctor When should I see my healthcare provider? Contact your provider if you have side effects that you can t manage. A note from [facility] Taking iron supplements by mouth works for [...] that isn t clear. Information obtained from [facility] (https://my.[facility]/h ealt/treatments/46776-nsuvkbpnzp d-qvbh-gummqtwewoqzunx) References [place] Society of Hematology. Iron-Deficiency Anemia (http://www.hematology.org/Patien ts/Anemia/Iron-Deficiency.aspx). Accessed 10/09/2022. Agapito Mckeon. Iron infusion and newer intravenous iron formulations (https://pubmed.ncbi.nlm.nih.gov/ 17755421/). Chin Med J (Engl). 2020;134(15):1731-5489. Published 2020July 07. Accessed 10/09/2022. [place]o Manual Professional Version. Iron Deficiency Anemia (https://www.Inventic/pro fessional/lpypepyjme-fwq-durzghnk /pupxrus-qhqqps-lu-deficient-eryt hropoiesis/ouaq-hzbqgegwlb-yxfsxd ). Last revised 07/2022. Accessed 10/09/2022. National Heart, Lung, and Blood [place] ([place].S.). Multiple pages reviewed. National Library of Medicine (U.S.). Dailymed. Ferumoxytol injection (https://dailymed.nlm.nih.gov/edgardo lópezd/drugInfo.cfm?setid=pr30l5pc -66r7-2mj1-il64-5a25mi439c01&maryjane ence=consumer). Last revised 08/06/2021. Accessed 10/09/2022. Storm Player Library of Medicine (U.S.). Dailymed. Monoferric -- ferric derisomaltose injection, solution (https://dailymed.nlm.nih.gov/edgardo lópezd/drugInfo.cfm?smrvt=26206s0n -1074-9wh2-m02n5pf1-c78g-z691lbhz85py). Last revised 09/28/2021. Accessed 10/09/2022. Mayra T, Thom C, Nigel PÉREZ, et al. Questions and answers on iron deficiency treatment selection and the use of intravenous iron in routine clinical practice (https://pubmed.ncbi.nlm.nih.gov/ 76629970/). Yoana Med. 2020;53(1):274-285. Accessed 10/09/2022. Iron sucrose: [...] may report side effects to FDA at [phone]. Where should I keep my medication? This medication is given in a hospital or clinic and will not be stored at home. NOTE: This sheet is a summary. It may not cover all possible information. If you have questions about this medicine, talk to your doctor, pharmacist, or health care provider. Information obtained from [facility] (https://my.[facility].org/h ealt/drugs/19919-damg-jdykyoa-op jection) documented in this encounter [facility] 08-05-2024 History of Present illness Narrative [facility] DEPARTMENT OF PATIENT BLOOD MANAGEMENT INITIAL [facility] HEALTH VISIT I have communicated my name and active licensure. The patient's identity and physical location were verified at the time of this visit. No patient name on file. or their legal sales representative sales manager has been informed of the risks and benefits of -- and alternatives to -- treatment through a remote evaluation and consents to proceed with the evaluation remotely. This is a virtual visit using [employer] Video Visit. It required patient-provider interaction for [...] use. Vape prior to . 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 Medical/Surgical History: PAST MEDICAL HISTORY Diagnosis Date Anemia Chronic tonsillitis Depression 10/08/2016 Gall stone 07/2022 cholecystectomy after delivery GERD (gastroesophageal reflux disease) H/O shoulder dystocia in prior , currently ([facility]) 12/14/22 Hemorrhoids History of back problems History of depression History of shoulder dystocia in prior 03/10/2024 Kidney stones Paroxysmal SVT (supraventricular tachycardia) ([facility]) Postoperative pulmonary embolism ([facility]) 06/2023 Psychiatric disorder depression, anxiety and PTSD PAST SURGICAL HISTORY Procedure Laterality Date CHOLECYSTECTOMY HX 06/17/2023 [facility] IUD REMOVAL 09/15/2023 PT ED HEART AND [...] infusion x 4 doses was signed for [facility]. - Recommend to recheck labs [...] which included preparing to see the patient, thah-ye-ajdv patient care, completing clinical documentation, counseling and educating the patient/family/caregiver, ordering medications, tests, or procedures, independently interpreting results (not separately reported), communicating results to the patient/family/caregiver, and care coordination (not separately reported) Nayely Gil PA-C Department of Blood Management August 05, 2024 CC: Referring Provider: Jaquelin Hi APRN.CNM PCP: Rachell Amador APRN.SEMICONDUCTOR WAFERS TESTER documented in this encounter [facility] 08-05-2024 Note HNO ID: [id number] Author: NAYELY GIL PA-C Service: ? Author Type: Physician Threshing Machine Operator Type: Progress Notes Filed: 08/05/2024 15:28 Note Text: [facility] DEPARTMENT OF PATIENT BLOOD MANAGEMENT INITIAL [facility] VISIT I have communicated my name and active licensure. The patient's identity and physical location were verified at the time of this visit. No patient name on file. or their legal sales representative sales manager has been informed of the risks and benefits of -- and alternatives to -- treatment through a remote evaluation and consents to proceed with the evaluation remotely. This is a virtual visit using [employer] Video Visit. It required patient-provider interaction for [...] use. Vape prior to . 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 Medical/Surgical History: PAST MEDICAL HISTORY Diagnosis Date Anemia Chronic tonsillitis Depression 10/08/2016 Gall stone 07/2022 cholecystectomy after delivery GERD (gastroesophageal reflux disease) H/O shoulder dystocia in prior , currently ([facility]) 12/14/22 Hemorrhoids History of back problems History of depression History of shoulder dystocia in prior 03/10/2024 Kidney stones Paroxysmal SVT (supraventricular tachycardia) ([facility]) Postoperative pulmonary embolism ([facility]) 06/2023 Psychiatric disorder depression, anxiety and PTSD PAST SURGICAL HISTORY Procedure Laterality Date CHOLECYSTECTOMY HX 06/17/2023 [facility] IUD REMOVAL 09/15/2023 PT ED HEART AND [...] 07/27/2024 9.5 (L) (more content not included)... [facility] 08-03-2024 Evaluation note Diagnosis Onset Date Resolution Headache in acute Jul 1:17pm [facility] Work Phone: 1(176) 195-750806-24-2025 Evaluation note* Diagnosis Onset Date Resolution Status [...] 11:09am Vaginal discharge acute September 092024 11:09am [facility] Work Phone: 1(353) 135-984006-24-2025 Evaluation note* Diagnosis Onset Date Resolution Status [...] Vaginal discharge acute September 19, 2024 12:37pm [facility] Work Phone: 1(538) 130-635206-24-2025 Telephone encounter Note* Telephone Encounter - Chantelle Marquis RN - 08/03/2024 1:47 PM EDT Patient is currently at L&D. Chantelle Marquis, RN [facility]06-24-2025 Miscellaneous Notes* Telephone Encounter - Chantelle Marquis [...] states she has a heart appt in [place] (Hx Paroxysmal SVT) at 11:45am and will go to [facility] ER/ L&D after that to be [...] - 08/02/2024 2:07 PM EDT 29w5d See [employer] message. Tried reaching patient via phone; however, went straight to voicemail. Sent Ptmychart reply and advised she go straight to ER with symptoms listed. Juliane Martin RN documented in this encounterVeter[facility]06-24-2025 Telephone encounter Note * Telephone Encounter - Prabhu Ortez MD - 08/03/2024 11:48 AM EDT I can see patient at 1pm today. Prabhu Ortez MD [facility]06-24-2025 History of Present illness Narrative* Ramiro Hugo [...] Smokes marijuana every other day FamHx: pGF MO in 30 Objective Current Outpatient Medications Medication Instructions folic acid (FOLVITE) 1 mg, Daily metoprolol tartrate (LOPRESSOR) 25 mg, oral, 2 times daily norethindrone (AYGESTIN) 5 mg, Daily RT [id number] 6-DHA ORAL Take by mouth. Visit Vitals [...] Study(s): Results DIAGNOSTIC EKG: Normal (08/03/2024) 14-day ekg monitor (July 2023): Predominant rhythm sinus with [...] to the EP Clinic in 6 months Rmairo Hugo MD [facility] Cardiac Electrophysiology [email or web address] Disclaimer: This note was dictated by speech recognition, and every effort has been made to prevent any error in inoculator, however minor errors may be present This medical note was created with the assistance of artificial intelligence (AI) for documentationpurposes. The content has been reviewed and confirmed by the healthcare provider for accuracy and completeness. Patient consented to the use of audio recording and use of AI during their visit. [facility] Phone: 1(824) 199-936506-24-2025 Telephone encounter Note* Telephone Encounter - Juliane [...] states she has a heart appt in [place] (Hx Paroxysmal SVT) at 11:45am and will go to [facility] ER/ L&D after that to be assessed for Pre-e. Advised Pt message would be sent to KJ and if she had alternative guidance we would be in contact with her. Pt voiced understanding. Juliane Martin RN [facility]06-23-2025 Telephone encounter Note* Telephone Encounter - Jaquelin Hi APRN.CNM - 08/02/2024 2:30 PM EDT Agree with plan and would recommend appointment. Thank you, Jaquelin Hi APRN.CNM [facility]06-23-2025 Telephone encounter Note* Telephone Encounter - Juliane Martin RN - 08/02/2024 2:07 PM EDT 29w5d See [employer] message. Tried reaching patient via phone; however, went straight to voicedcil. Sent Slantrangeart reply and advised she go straight to ER with symptoms listed. Juliane Martin RN [facility]06-18-2025 Telephone encounter Note* Telephone Encounter - Josefa Ricks RN - 07/28/2024 8:27 AM EDT 3rd risk assessment form submitted 07/28/24 Josefa Ricks RN [facility]06-18-2025 Miscellaneous Notes* Telephone Encounter - Josefa Ricks RN - 07/28/2024 8:27 AM EDT 3rd risk assessment form submitted 07/28/24 Josefa Ricks RN documented in this encounterVeterans Health Administration06-17-2025 Progress note* Quick Notes - Yamila Ballard MD - 07/27/2024 1:58 PM EDT RR- VB No. LOF No. CTXS No. Movement: present. Other c/o: heartburn, pepcid not helping Medication list reviewed. SENSITIVE EXAM: Sensitive exam not performed. Physical Exam See Flow Sheet Abd: soft, nontender, gravid Ext: edema: Trace A/P 28w6d Estimated Date of Delivery: 10/13/24 Assessment & Plan 28 weeks gestation of ([facility]) Supervision of other high risk pregnancies, second trimester ([facility]) Rh negative state in antepartum period ([facility]) rh prohylaxis Need for vaccination desires tdap [...] delivery Heartburn during , antepartum, third trimester ([facility]) d/c pepcid, trial prevacid Yamila Ballard M.D. [facility]06-17-2025 Miscellaneous Notes* Quick Notes - Yamila Ballard MD - 07/27/2024 1:58 PM EDT RR- VB No. LOF No. CTXS No. Movement: present. Other c/o: heartburn, pepcid not helping Medication list reviewed. SENSITIVE EXAM: Sensitive exam not performed. Physical Exam See Flow Sheet Abd: soft, nontender, gravid Ext: edema: Jason A/P 28w6d Estimated Date of Delivery: 10/13/24 Assessment & Plan 28 weeks gestation of ([facility]) Supervision of other high risk pregnancies, second trimester ([facility]) Rh negative state in antepartum period ([facility]) rh prohylaxis Need for vaccination desires tdap [...] prevacid Yamila Ballard M.D. documented in this encounterVeterans Health Administration06-17-2025 NoteHNO ID: [id number] Author: IVETH KOHLI RN Service: ? Author [...] severely ill: Yes Patient denies history of Guillain-Pecatonica Syndrome (a severe paralytic illness): Yes Tdap [...] given her Rhophylac pocket card. Iveth Kohli RNP[facility]edica [facility] Hospital06-17-2025 History of Present illness Narrative* Iveth Kohli [...] severely ill: Yes Patient denies history of Guillain-Pecatonica Syndrome (a severe paralytic illness): Yes Tdap [...] card. Iveth Kohli RN documented in this encounterVeterans Health Administration06-17-2025 Instructions* Patient Instructions* Joyce Clark MA - 07/27/2024 1:20 PM EDT SEQUENTIAL SCREENINGS The [facility] offers sequential screenings for women who are [...] testing. It will require an appointment withour integrated pest management technician. This is not an ultrasound performed [...] the above symptoms, contact our office at [phone] and ask to speak with anurse. After hours, you can call doctors registry at [phone] OR call [facility] at [phone] ask to have the doctor organic section technical lead paged. If you consider this an emergency, dial 9-1-9 or go to your nearest emergency department. NEED HELP? Are you dealing with a violent or abusive relationship? Are you a victim of rape or sexual assult? Call [facility] ([place]) 24 hour Crisis Hotline: 515.365.6617 or 957-480-4452. MANUAL Your Guide to a Healthy manual is now on-line. Visit [facility]org/HealthyPregnancyGuide to download your free copy documented in this encounterVeterans Health Administration05-20-2025 NoteHNO ID: [id number] Author: JAQUELIN HI APRN.CNM Service: ? Author Type: Manager Product Support Type: Progress Notes Filed: 06/29/2024 15:21 Note Text:[facility]05-20-2025 NoteHNO ID: [id number] Author: JAQUELIN HI APRN.CNM Service: ? Author Type: Manager Product Support Type: Progress Notes Filed: 06/29/2024 15:32 Note [...] and when to call RTO in 4 weeksPromedica [facility]04-23-2025 Miscellaneous Notes* Telephone Encounter - Josefa Ricks RN - 06/02/2024 8:48 AM EDT 2nd risk assessment form submitted 06/02/24 Josefa Ricks RN documented in this encounterVeterans Health Administration04-23-2025 Telephone encounter Note * Telephone Encounter - Josefa Ricks RN - 06/02/2024 8:48 AM EDT 2nd risk assessment form submitted 06/02/24 Josefa Ricks RN [facility]04-22-2025 NoteHNO ID: [id number] Author: JAQUELIN HI APRN.CNM Service: ? Author Type: Manager Product Support Type: Progress Notes Filed: 06/29/2024 15:21 Note Text:[facility]04-22-2025 History of Present illness Narrative* [...] weeks Jaquelin Hi APRN.CNM documented in this encounterVeterans Health Administration04-22-2025 Instructions* Patient Instructions* Jaquelin Hi APRN.CNM - 06/01/2024 9:43 AM EDT [facility] [address] [place] [address] [facility] [address] [place], [place] [address] [facility] [address] [place] [address] [facility] [address] [place] [address] [email or web address] [email or web address] [facility] [address] [place] [address] [facility] [address] [place] [address] [email or web address] [facility] [address], [place] [address] [email or web address] [facility] [phone] [employer] [address] [place] [address] [facility] [address] [address] [facility] [place] office also [phone] [email or web address] [facility] [phone] [facility]7 [facility] [address]. [address] [place] [address] [facility] - [address] [address] [email or web address] [facility] [address] [place] [address] [email or web address] SIGNS AND SYMPTOMS OF LABOR 1. Contractions every 10 minutes or more often 2. Clear, pink, or brownish fluid (water) leaking from vagina 3. Feeling that baby is pushing down, pressure 4. Low, dull backache 5. Cramps that feel like a period 6. Cramps with or without diarrhea If you notice any of the above symptoms, contact our office at [phone] and ask to speak with anurse. After hours, you can call doctors registry at [phone] OR call [facility] at [phone] ask to have the doctor organic section technical lead paged. If you consider this an emergency, dial 10-11- or go to your nearest emergency department. NEED HELP? Are you dealing with a violent or abusive relationship? Are you a victim of rape or sexual assult? Call [facility] ([place]) 24 hour Crisis Hotline: 133.640.1677 or 850-942-5395. MANUAL Your Guide to a Healthy manual is now on-line. Visit the [facility]org/HealthyPregnancyGuide to download your free copy documented in this encounterVeterans Health Administration04-01-2025 Telephone encounter Note * Telephone Encounter - Antionette Ward RN - 05/11/2024 12:39 PM EDT Order signed and faxed. Antionette Ward RN [facility]04-01-2025 Miscellaneous Notes* Telephone Encounter - Antionette Ward RN - 05/11/2024 12:39 PM EDT Order signed and faxed. Antionette Ward RN * Telephone Encounter - Chantelle Marquis RN - 05/10/2024 8:51 AM EDT Received breast pump RX from [employer]. To HILARIA to sign. Chantelle Marquis RN documented in this encounterVeterans Health Administration03-31-2025 Telephone encounter Note * Telephone Encounter - Chantelle Marquis RN - 05/10/2024 8:51 AM EDT Received breast pump RX from [employer]. To HILARIA to sign. Chantelle Marquis RN [facility]03-25-2025 Progress note* Quick Notes - Jaquelin Hi [...] RTO in 4 weeks Jaquelin Hi APRN.CNM [facility]03-25-2025 Miscellaneous Notes* Quick Notes - Jaquelin Hi [...] weeks Jaquelin Hi APRN.CNM documented in this encounterVeterans Health Administration03-25-2025 Instructions* Patient Instructions* Steven Cruz MA - 05/04/2024 2:31 PM EDT SEQUENTIAL SCREENINGS The [facility] offers sequential screenings for women who are [...] testing. It will require an appointment withour integrated pest management technician. This is not an ultrasound performed [...] the above symptoms, contact our office at [phone] and ask to speak with anurse. After hours, you can call doctors registry at [phone] OR call [facility] at [phone] ask to have the doctor organic section technical lead paged. If you consider this an emergency, dial 0-4-4 or go to your nearest emergency department. NEED HELP? Are you dealing with a violent or abusive relationship? Are you a victim of rape or sexual assult? Call [facility] ([place]) 24 hour Crisis Hotline: 686.634.3014 or 279-529-2402. MANUAL Your Guide to a Healthy manual is now on-line. Visit the [facility]org/HealthyPregnancyGuide to download your free copy documented in this encounterVeterans Health Administration02-26-2025 Progress note* Quick Notes - Jaquelin Hi [...] RTO in 4 weeks Jaquelin Hi APRN.CNM [facility]02-26-2025 Miscellaneous Notes* Quick Notes - Jaquelin Hi [...] weeks Jaquelin Hi APRN.CNM documented in this encounterVeterans Health Administration02-26-2025 Instructions* Patient Instructions* Alisha Jordan LPN - 04/07/2024 2:45 PM EST SEQUENTIAL SCREENINGS The [facility] offers sequential screenings for women who are [...] testing. It will require an appointment withour integrated pest management technician. This is not an ultrasound performed [...] the above symptoms, contact our office at [phone] and ask to speak with anurse. After hours, you can call doctors registry at [phone] OR call [facility] at [phone] ask to have the doctor organic section technical lead paged. If you consider this an emergency, dial 91-3 or go to your nearest emergency department. NEED HELP? Are you dealing with a violent or abusive relationship? Are you a victim of rape or sexual assult? Call [facility] ([place]) 24 hour Crisis Hotline: 335.607.9668 or [phone]. MANUAL Your Guide to a Healthy manual is now on-line. Visit the [email or web address] to download your free copy documented in this encounterVeterans Health Administration02-05-2025 Progress note* Quick Notes - Jaquelin Hi [...] with more than 50% of the total srmh-xr-hepx time of the visit in counseling / coordination of care. [facility]02-05-2025 Miscellaneous Notes* Quick Notes - Jaquelin Hi [...] with more than 50% of the total lrxf-bi-mcov time of the visit in counseling / coordination of care. documented in this encounterVeterans Health Administration02-04-2025 NoteHNO ID: [id number] Author: JAQUELIN HI APRN.CNM Service: ? Author Type: Manager Product Support Type: Progress Notes Filed: 03/17/2024 15:23 Note Text:[facility]02-04[facility] History of Present illness Narrative* Jaquelin Hi APRN.CNM - 03/16/2024 10:30 AM EST documented in this encounterVeterans Health Administration01-30-2025 Telephone encounter Note * Telephone Encounter - Chantelle Rodriguez RN - 03/11/2024 10:56 AM EST 1st risk assessment form submitted 03/11/2024. Chantelle Rodriguez RN [facility]01-30-2025 Miscellaneous Notes* Telephone Encounter - Chantelle Rodriguez RN - 03/11/2024 10:56 AM EST 1st risk assessment form submitted 03/11/2024. Chantelle Rodriguez RN documented in this encounterVeterans Health Administration01-29-2025 BparSESR-UNH-0 (AGENT OF COVID-19) RNA: Not detected INFLUENZA A RNA: Detected INFLUENZA B RNA: Not detected RESPIRATORY SYNCYTIAL VIRUS (RSV) RNA: Not detectedNorthern Light Inland HospitalComment on above:Performed By: #### [id number] ####[facility] LABCLIA [id number] [place] [address] [employer] OF [id number] Note* Addendum Note - Jaquelin Hi APRN.CNM - 03/10/2024 12:01 PM ESTAddended by: JAQUELIN HI on: 03/10/2024 12:01 PM Modules accepted: Orders [facility]01-29-2025 Miscellaneous Notes* Addendum Note - Jaquelin Hi APRN.CNM - 03/10/2024 12:01 PM ESTAddended by: JAQUELIN HI on: 03/10/2024 12:01 PM Modules accepted: Orders * Quick Notes - Jaquelin Hi APRN.CNM - 03/10/2024 11:58 AM EST YENNY, see progress note. LMP consistent with US today. Jaquelin Hi APRN.CNM documented in this encounterVeterans Health Administration01-29-2025 Progress note* Quick Notes - Jaquelin Hi APRN.CNM - 03/10/2024 11:58 AM EST YENNY, see progress note. LMP consistent with US today. Jaquelin Hi APRN.CNM [facility]01-28-2025 NoteHNO ID: [id number] Author: JAQUELIN HI APRN.CNM Service: ? 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 Gender: Male PAST MEDICAL HISTORY Diagnosis Date Anemia Chronic tonsillitis Depression 10/08/2016 Gall stone 07/2022 cholecystectomy after delivery GERD (gastroesophageal reflux disease) H/O shoulder dystocia in prior , currentl (more content not included)...[facility]01-28-2025 History of Present illness Narrative* Jaquelin Hi APRN.[facility] - 03/09/2024 11:52 AM EST INITIAL OB [...] Status: Partner: Name: Te Age: 24 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 As applicable, any other physician, advance practice provider, medical student, or other health professional student that will be observing or involved in the sensitive examination for educational or training purposes was discussed with the Patient or Authorized Timber Management Specialist. The Patient or Authorized Timber Management Specialist has agreed to proceed with the sensitive [...] 03/05/2024 1:43 PM EST documented in this encounterVeterans Health Administration01-24-2025 NoteHNO ID: [id number] Author: JAQUELIN HI APRN.CNM Service: ? Author Type: Manager Product Support Type: Progress Notes Filed: 03/10/2024 11:59 Note Text:[facility]01-24-2025 Instructions* Patient Instructions* Jaquelin Hi APRN.CNM - 03/05/2024 1:43 PM EST Please select the following link to access the [facility] Your Guide to a Healthy . [email or web address] documented in this encounterVeterans Health Administration01-16-2025 NoteHNO ID: [id number] Author: LILLIAN ROCHA LPN Service: ? Author [...] seen in the Emergency Department (ED) Location: [facility] Date: 02/18/2024 Reason for ED Visit: UTI [...] pt she is feeling better. Lillian Rocha [facility]01-16-2025 History of Present illness Narrative* Lillian Rocha LPN - 02/26/2024 10:31 AM EST ED Follow-Up Note Provider Action / FYI: Call completed by: FREDERICK Patient seen in ED: Out of Network ED Contact made with Patient: Yes The patient was identified by Name and Date of . Discussed Care with: patient Patient was seen in the Emergency Department (ED) Location: [facility] Date: 02/18/2024 Reason for ED Visit: UTI [...] 26, 2024 10:19 AM documented in this encounterVeterans Health Administration01-16-2025 NoteHNO ID: [id number] Author: LILLIAN ROCHA LPN Service: ? Author Type: LICENSED NURSE Type: Progress Notes Filed: 02/26/2024 10:20 Note Text: ED Follow-Up Note Provider Action / FYI: Call completed by: FREDERICK Patient seen in ED: Out of Network ED Contact made with Patient: No, left message. Lillian Rocha LPN February 26, 2024 10:19 AMNorthern Light Inland Hospital01-16-2025 NotePatient Outreach (AGFAMPLE) KEAGAN ALICIA ([id number]) 4 F Date Time Provider Department 02/26/24 [...] seen in the Emergency Department (ED) Location: [facility] Date: 02/18/2024 Reason for ED Visit: UTI [...] Date Reviewed: 12/26/2023 Reviewed by: Rachell Amador APRN.SEMICONDUCTOR WAFERS TESTER - Fully Assessed Reason for Visit: ER F/U [41] Cmt: [facility] 02/18/2024 Prescriptions as of 02/26/2024 - [...] (*09/01/2023 Encounter Status:Closed by LILLIAN ROCHA on 02/26/24[facility] 02-19-2024 Telephone encounter Note* Telephone Encounter - Prabhu Ortez MD - 02/19/2024 4:23 PM EST Noted and agree. Prabhu Ortez MD [facility]01-09-2025 Miscellaneous Notes* Telephone Encounter - Prabhu Ortez MD - 02/19/2024 4:23 PM EST Noted and agree. Prabhu Ortez MD * Telephone Encounter - Chantelle Marquis RN - 02/19/2024 4:09 PM EST Spoke with patient. LMP 01/06 approximately 6w1d. Patient was seen at [facility] ER in [place]. She was given IV fluids and a [...] LMP. Juliane Martin RN documented in this encounterVeterans Health Administration01-09-2025 Telephone encounter Note * Telephone Encounter - Chantelle Marquis RN - 02/19/2024 4:09 PM EST Spoke with patient. LMP 01/06 approximately 6w1d. Patient was seen at [facility] ER in [place]. She was given IV fluids and a script for Zofran. No episodes of vomiting since ER visit on Friday.Scheduled patient's NOB visit appropriately and sent additional information regarding N/V in . Chantelle Marquis RN [facility]01-09-2025 Telephone encounter Note* Telephone Encounter - Juliane Martin RN - 02/19/2024 3:49 PM EST Left message for patient to call office. Need to rescheduled Pt's OB appt as she needs a NEW OB 1STEXAM as well as noting LMP. Juliane Martin RN [facility]01-08-2025 Emergency department Note* Eugene Mccormick, PIPE STEM SAWYER-SEMICONDUCTOR WAFERS TESTER - 02/18/2024 10:46 AM EST Chief Complaint Patient presents with Abdominal Pain Upper abd pain with n/v/d x 3 days I feel dehydrated Patient History Past Medical History: Diagnosis Date Anxiety Depression PTSD (post-traumatic stress disorder) Past Surgical History: Procedure Laterality Date CARDIAC ELECTROPHYSIOLOGY PROCEDURE N/A 10/03/2023 Procedure: Ablation SVT ([id number]); Surgeon: Ramiro Hugo MD; Location: [facility] Cardiac Ride Mechanic; Service: Electrophysiology; Laterality: N/A; CHOLECYSTECTOMY 06/17/2023 DR [...] performed using a different test methodology at [facility] than other [facility]. Direct result comparison should only be made within the same method. HCG, URINE, QUALITATIVE - Abnormal HCG, Urine POSITIVE (*) URINALYSIS WITH REFLEX CULTURE AND MICROSCOPIC - Abnormal Color, Urine Yellow Appearance, Urine Turbid (*) Specific Bomont, Urine 1.030 pH, Urine 6.0 Protein, Urine [...] Abnormality Status --------- ------ Urinalysis with Reflex C...[[id number]] Abnormal Final result Extra Urine Emerson Tube[[id number]] In process Please view results for these tests on the individual orders. EXTRA URINE EMERSON TUBE US PELVIS OB TRANSABDOMINAL W TRANSVAGINAL UP TO 1ST TRIMESTER Final Result 1. Single live intrauterine . 2. Estimated gestational age: 6 weeks 1 days. LUZ: 10/12/2024. 3. Small subchorionic hemorrhage. MACRO: None Signed by: Samia Valencia 02/18/2024 1:00 PM Dictation workstation: [id number] Medical Decision Making ED COURSE: This patient [...] JONAH Li 02/18/24 1436 documented in this encounterSelect [facility] Work Phone: 1(744) 206-737301-08-2025 Physician Emergency department Note* JONAH Li - 02/18/2024 10:46 AM EST Chief Complaint Patient presents with Abdominal Pain Upper abd pain with n/v/d x 3 days I feel dehydrated Patient History Past Medical History: Diagnosis Date Anxiety Depression PTSD (post-traumatic stress disorder) Past Surgical History: Procedure Laterality Date CARDIAC ELECTROPHYSIOLOGY PROCEDURE N/A 10/03/2023 Procedure: Ablation SVT ([id number]); Surgeon: Ramiro Hugo MD; Location: [facility] Cardiac Ride Mechanic; Service: Electrophysiology; Laterality: N/A; CHOLECYSTECTOMY 06/17/2023 DR [...] performed using a different test methodology at [facility] than other [facility]. Direct result comparison should only be made within the same method. HCG, URINE, QUALITATIVE - Abnormal HCG, Urine POSITIVE (*) URINALYSIS WITH REFLEX CULTURE AND MICROSCOPIC - Abnormal Color, Urine Yellow Appearance, Urine Turbid (*) Specific Bomont, Urine 1.030 pH, Urine 6.0 Protein, Urine [...] Abnormality Status --------- ------ Urinalysis with Reflex C...[[id number]] Abnormal Final result Extra Urine Emerson Tube[[id number]] In process Please view results for these tests on the individual orders. EXTRA URINE EMERSON TUBE US PELVIS OB TRANSABDOMINAL W TRANSVAGINAL UP TO 1ST TRIMESTER Final Result 1. Single live intrauterine . 2. Estimated gestational age: 6 weeks 1 days. LUZ: 10/12/2024. 3. Small subchorionic hemorrhage. MACRO: None Signed by: Samia Valencia 02/18/2024 1:00 PM Dictation workstation: [id number] Medical Decision Making ED COURSE: This patient [...] n/v/d #3 hypogylcemia JONAH Li 02/18/24 1436 [facility] Work Phone: 1(839) 393-576912-17-2024 History of Present illness Narrative* Ramiro Hugo [...] Smokes marijuana every other day FamHx: pGF MO in 30 Objective Current Outpatient Medications Medication [...] normal. My Interpretation of Reviewed Study(s): 14-day ekg monitor (July 2023): Predominant rhythm sinus with [...] Clinic in 6 months Ramiro Hugo MD [facility] Cardiac Electrophysiology [email or web address] Disclaimer: This note was dictated by speech recognition, and every effort has been made to prevent any error in inoculator, however minor errors may be present documented in this [facility] Work Phone: 1(767) 570-520611-15-2024 NoteHNO ID: [id number] Author: RACHELL AMADOR APRN.ULISSES Service: ? Author Type: Nurse Practitioner Type: Progress Notes Filed: 12/26/2023 11:34 Note Text: [place] [address] Date of Evaluation: 12/26/2023 Patient Name: Keagan [...] HISTORY Procedure Laterality Date [facility]LE[facility]ST[facility] 09/15/2023 PT ED HEART AND [...] Pupils: Pupils are equa (more content not included)...[facility]11-15-2024 History of Present illness Narrative* Rachell Amador APRN.CNP - 12/26/2023 10:16 AM EST Images from the [place] [address] Date of Evaluation: 12/26/2023 Patient Name: Keagan [...] HISTORY Procedure Laterality Date CHOLECYSTECTOMY HX [facility]AL 09/15/2023 PT ED HEART AND [...] 12/25/2024) for well adult exam. Rachell Amador APRN.SEMICONDUCTOR WAFERS TESTER documented in this encounterVeterans Health Administration10-30-2024 History of Present illness Narrative* Norbert Noriega [...] focal deficits Reviewed Study(s): Outside echocardiogram from [facility] 08/25/2023 CONCLUSIONS: - Exam indication: Palpitations [...] with me as needed Norbert Fernandes MD [facility] Interventional Cardiology Endovascular Interventions [email or web address] Disclaimer: This note was dictated by speech recognition, and every effort has been made to prevent any error in inoculator, however minor errors may be present documented in this [facility] Work Phone: [phone]) 376-247610-14-2024 NoteHNO ID: [id number] Author: SANDRA COLE APRN.ULISSES Service: ? Author Type: Nurse Practitioner Type: Progress Notes Filed: 11/24/2023 13:09 Note Text: Patient declined front office secretary. Keagan Alicia is a 23 year old [...] Births2 Comment: No DANDCs for missed abs Recruitment Coordinator History LMP: 09/15/2023 (Exact Date), Having periods Age at Menarche: Age at First : Age at Menopause: Recruitment Coordinator History Comments: Sexual Activity: Yes; Male Contraception: Pill PAST MEDICAL HISTORY Diagnosis Date Anemia Chronic tonsillitis Depression 10/08/2016 Gall stone 07/2022 cholecystectomy after delivery GERD (gastroesophageal reflux disease) Hemorrhoids History of back problems Kidney stones Paroxysmal SVT (supraventricular tachycardia) (HCC) Postoperative pulmonary embolism (HCC) 06/2023 Psychiatric disorder depression, anxiety and PTSD PAST SURGICAL HISTORY Procedure Laterality Date CHOLECYST[facility]OMY H[facility] 09/15/2023 TONSILLECTOMY HX FAMILY HISTORY [...] discussed with the Patient or Patient's Authorized Timber Management Specialist. As applicable, any other physician, advance practice provider, medical student, or other health professional student that will be observing or involved in the sensitive examination for educational or training purposes was discussed with the Patient or Authorized Timber Management Specialist. The Patient or Authorized Timber Management Specialist has agreed to proceed with the sensitive examination. (Sensitive examination includes inspection and/or palpation of the breasts, pelvis, prostate and anorectal regions). EXAM: LMP 09/15/2023 GENERAL: pleasant, female in no apparent distress HEENT: Normocephalic, atraumatic, mucus membranes moist, and no lesions CHEST: Normal inspiratory effort ABDOMEN: soft, non-tender, and no masses PELVIC: external genitalia normal, normal Bartholin's glands, urethra, Lone Jack's glands, no vulvar lesions, no cervical lesions, good vaginal support, physiologic discharge present, normal appearing perineal body and perianal region BIMANUAL: deferred NEURO: alert and oriented x3,exam grossly non-focal EXTREMITIES: normal ASSESSMENT/PLAN: 1. Vaginal discharge - ICD9: 623.5, ICD10: N89.8 Will notify patient of test results. - ALMITA/TRICHOMONAS NAAT - BACTERIAL VAGINOSIS NAAT - GONORRHEA/CHLAMYDIA NAAT If results are negative recommend vaginal pH primer inserting machine operator. Sandra Cole APRN.ULISSES Medical Decision Making: Problems: Moderate: New problem with uncertain prognosis Data: Unique test(s) ordered: 3+ Risk: Low: Low risk from testing/treatment Medical Decision Making Level: 4 - ModerateProm[facility]ica [facility] Hospital10-14-2024 History of Present illness Narrative* Sandra Cole APRN.SEMICONDUCTOR WAFERS TESTER - 11/24/2023 12:41 PM EDT Patient declined front office secretary. Keagan Alicia is a 23 year old female who presents for problem visit vaginal discharge, odor for2 month(s). HPI: pt states that she has had thicker white discharge w/ odor and some burning off/on over the past 2 months. She tried OTC yeast treatment with no resolve. OB History T1 L2 SAB3 IAB0 Ectopic0 Multiple0 Live Births2 Comment: No D&Cs for missed abs Recruitment Coordinator History LMP: 09/15/2023 (Exact Date), Having periods Age at Menarche: Age at First : Age at Menopause: Recruitment Coordinator History Comments: Sexual Activity: Yes; Male Contraception: Pill PAST MEDICAL HISTORY Diagnosis Date Anemia Chronic tonsillitis Depression 10/08/2016 Gall stone 07/2022 cholecystectomy after delivery GERD (gastroesophageal reflux disease) Hemorrhoids History of back problems Kidney stones Paroxysmal SVT (supraventricular tachycardia) (HCC) Postoperative pulmonary embolism (HCC) 06/2023 Psychiatric disorder depression, anxiety and PTSD PAST SURGICAL HISTORY Procedure Laterality Date [facility]LECYSTECTOMY [facility] 09/15/2023 TONSILLECTOMY HX FAMILY HISTORY [...] discussed with the Patient or Patient's Authorized Timber Management Specialist. As applicable, any other physician, advance practice provider, medical student, or other health professional student that will be observing or involved in the sensitive examination for educational or training purposes was discussed with the Patient or Authorized Timber Management Specialist. The Patient or Authorized Timber Management Specialist has agreed to proceed with the sensitive examination. (Sensitive examination includes inspection and/or palpation of the breasts, pelvis, prostate and anorectal regions). EXAM: LMP 09/15/2023 GENERAL: pleasant, female in no apparent distress HEENT: Normocephalic, atraumatic, mucus membranes moist, and no lesions CHEST: Normal inspiratory effort ABDOMEN: soft, non-tender, and no masses PELVIC: external genitalia normal, normal Bartholin's glands, urethra, Lone Jack's glands, no vulvar lesions, no cervical lesions, good vaginal support, physiologic discharge present, normal appearing perineal body and perianal region BIMANUAL: deferred NEURO: alert and oriented x3,exam grossly non-focal EXTREMITIES: normal ASSESSMENT/PLAN: 1. Vaginal discharge - ICD9: 623.5, ICD10: N89.8 Will notify patient of test results. - ALMITA/TRICHOMONAS NAAT - BACTERIAL VAGINOSIS NAAT - GONORRHEA/CHLAMYDIA NAAT If results are negative recommend vaginal pH primer inserting machine operator. Sandra Cole APRN.CNP Medical Decision Making: Problems: Moderate: New problem with uncertain prognosis Data: Unique test(s) ordered: 3+ Risk: Low: Low risk from testing/treatment Medical Decision Making Level: 4 - Moderate documented in this encounterVeterans Health Administration09-05-2024 Instructions* Patient Instructions* Faiza Mishra APRN.CNP - 10/16/2023 7:18 AM EDT Thank you for seeing me in clinic today. As we discussed, my recommendations are as follows: 1.colestipol 1 gram twice daily with meals If you have any questions about the above treatment plan, please do not hesitate to call the officeor send me a [employer]t message. documented in this encounterVeterans Health Administration09-05-2024 History and physical note * Faiza Mishra APRN.SEMICONDUCTOR WAFERS TESTER - 10/16/2023 7:00 AM EDT [facility] [...] postoperative status. LABS BASIC METABOLIC PANEL Order: [id number] Component Ref Range & Units 2 wk [...] race variable for the IDMS-Traceable creatinine methods. https://jasn.asnjournals.org/content/early//ASN.7824924402 Calcium 8.6 - 10.3 mg/dL 9.2 ntains abnormal data COMPLETE BLOOD COUNT Order: [id number] Component Ref Range & Units 2 wk [...] Abs Lymph 1.00 - 4.00 k/uL 1.48 Kingfisher% % 10.7 Abs Kingfisher <0.87 k/uL 0.38 Eosin% % 0.3 Abs [...] stones No date: Paroxysmal SVT (supraventricular tachycardia) ([facility]) 06/2023: Postoperative pulmonary embolism ([facility]) No date: Psychiatric disorder Comment: depression, anxiety and PTSD PAST SURGICAL HISTORY 06/17/2023: [facility]STECTOMY [facility] IUD REMOVAL No date: TONSILLECTOMY HX [...] TABLET I spent more than 30 minutes nkkx-jh-nvbw with the patient and over half the time was devoted to counseling and/or coordination of care. This note was dictated using [employer] speech recognition software and may contain some errors that were a result of the program not accurately transcribing what was dictated. I have communicated my name and active licensure. The patient's identity and physical location wereverified at the time of this visit. Either the patient or their legal sales representative sales manager has been informed of the risks and benefits of -- and alternatives to -- treatment through a remote evaluation andconsents to proceed with the evaluation remotely. Faiza Mishra APRN.CNP [facility]09-05-2024 History and physical note* Faiza Mishra APRN.CNP [...] postoperative status. LABS BASIC METABOLIC PANEL Order: [id number] Component Ref Range & Units 2 wk [...] race variable for the IDMS-Traceable creatinine methods. https://jasn.asnjournals.org/content/early//ASN.6552990643 Calcium 8.6 - 10.3 mg/dL 9.2 ntains abnormal data COMPLETE BLOOD COUNT Order: [id number] Component Ref Range & Units 2 wk [...] Abs Lymph 1.00 - 4.00 k/uL 1.48 Kingfisher% % 10.7 Abs Kingfisher <0.87 k/uL 0.38 Eosin% % 0.3 Abs [...] stones No date: Paroxysmal SVT (supraventricular tachycardia) ([facility]) 06/2023: Postoperative pulmonary embolism ([facility]) No date: Psychiatric disorder Comment: depression, anxiety and PTSD PAST SURGICAL HISTORY 06/17/2023: CHOLECYSTECTOMY [facility]X [facility]: IUD REMOVAL No date: TONSILLECTOMY HX [...] TABLET I spent more than 30 minutes xlxq-gr-thnk with the patient and over half the time was devoted to counseling and/or coordination of care. This note was dictated using [employer] speech recognition software and may contain some errors that were a result of the program not accurately transcribing what was dictated. I have communicated my name and active licensure. The patient's identity and physical location wereverified at the time of this visit. Either the patient or their legal sales representative sales manager has been informed of the risks and benefits of -- and alternatives to -- treatment through a remote evaluation andconsents to proceed with the evaluation remotely. Faiza Mishra APRN.CNP documented in this encounterVeterans Health Administration08-23-2024 Nurse Note* Princess Marc RN - 10/03/2023 4:10 PM EDT RN notified Dr. Hugo patient states pain has improved to 7/10, resting comfortably, vitals stable, groin site stable, thigh soft and nontender, per MD pt ok to go home. Discharge instructions reviewed again, peripheral IV removed, belongings returned, patient meets discharge criteria, pt discharge via wheelchair by laborer chicken farm RN [facility] Work Phone: 1(116) 914-153908-23-2024 Nurse Note* Princess Marc RN - 10/03/2023 4:10 PM EDT RN notified Dr. Hugo patient states pain has improved to 7/10, resting comfortably, vitals stable, groin site stable, thigh soft and nontender, per MD pt ok to go home. Discharge instructions reviewed again, peripheral IV removed, belongings returned, patient meets discharge criteria, pt discharge via wheelchair by laborer chicken farm RN * Princess Marc RN - 10/03/2023 [...] EDT POCT test negative documented in this [facility] Work Phone: 1(526) 930-416908-23-2024 Nurse Note* Princess Marc RN - 10/03/2023 [...] continue to monitor patient at this time. [facility] Work Phone: 1(674) 980-826408-23-2024 Nurse Note* Princess Marc RN - 10/03/2023 3:00 PM EDT RN called Dr. Hugo to clarify eliquis orders for discharge. Per Dr. Hugo pt WILL NOT resume eliquisupon discharge, patient notified and verbalized understanding. [facility] Work Phone: 1(440) 868-998808-23-2024 Hospital Discharge instructions* Discharge Instructions* Princess Marc [...] SHOULD CALL 911 IMMEDIATELY.\ documented in this [facility] Work Phone: 1(118) 472-849308-23-2024 Miscellaneous Notes* Post-Procedure Note - Ramiro Hugo MD - 10/03/2023 7:50 AM EDT Physician Transition of Care Summary Cardiac Electrophysiology Lab/OR Procedure Date: 10/03/2023 Attending: * Ramiro Hugo - Primary Resident/Fellow/Other Threshing Machine Operator: Surgeons and Role: * No surgeons found with a matching role * Indications: Pre-op Diagnosis * SVT (supraventricular tachycardia) (CMS-HCC) [I47.10] Post-procedure diagnosis: Post-op Diagnosis * SVT (supraventricular tachycardia) (CMS-HCC) [I47.10] Procedure(s): Ablation SVT [phone] [id number] - PA COMPRE EP EVAL ABLTJ 3D MAPG TX [...] symptoms, or recent severe chest pain) call [place]:[phone] For full procedure note/study review please go to Chart review --> Cardiology tab --> Electrophysiology procedure for 10/03/2023 Complications: None Stents/Implants: Implants No implant documentation for this case. Anticoagulation/Antiplatelet Plan: None Estimated Blood Loss: * No values recorded between 07/11/2023 2:17 PM and 07/11/2023 7:50 PM * Anesthesia: General Anesthesia Staff: Anesthesiologist: Bishnu Ross MD RETAIL SHIFT MANAGER: CARO Wang Any Specimen(s) Removed: Order Name Source Comment Collection Info Order Time COAGULATION SCREEN Blood, Venous 10/03/2023 6:33 AM Release result to [facility] Immediate Disposition: Monitor for 2-3hrs post anesthesia and bed rest, and plan for Discharge home 10/03/23 Ramiro Hugo MD [facility] Cardiac Electrophysiology Disclaimer: This note was dictated by speech recognition, and every effort has been made to prevent any error in inoculator, however minor errors may be present documented in this [facility] Work Phone: 1(559) 268-629108-23-2024 Note* Post-Procedure Note - Ramiro Hugo MD - 10/03/2023 7:50 AM EDT Physician Transition of Care Summary Cardiac Electrophysiology Lab/OR Procedure Date: 10/03/2023 Attending: Nisa Hugo - Primary Resident/Fellow/Other Threshing Machine Operator: Surgeons and Role: * No surgeons found with a matching role * Indications: Pre-op Diagnosis * SVT (supraventricular tachycardia) ([facility]-H[facility]) [I47.10] Post-procedure diagnosis: Post-op Diagnosis * SVT (supraventricular tachycardia) (CMS-HCC) [I47.10] Procedure(s): Ablation SVT [phone] [id number] - PA COMPRE EP EVAL ABLTJ 3D MAPG TX [...] symptoms, or recent severe chest pain) call [place]:[phone] For full procedure note/study review please go to Chart review --> Cardiology tab --> Electrophysiology procedure for 10/03/2023 Complications: None Stents/Implants: Implants No implant documentation for this case. Anticoagulation/Antiplatelet Plan: None Estimated Blood Loss: * No values recorded between 07/11/2023 2:17 PM and 07/11/2023 7:50 PM * Anesthesia: General Anesthesia Staff: Anesthesiologist: Bishnu Ross MD RETAIL SHIFT MANAGER: Laura M Dzurik, PIPE STEM SAWYER-RETAIL SHIFT MANAGER Any Specimen(s) Removed: Order Name Source Comment Collection Info Order Time COAGULATION SCREEN Blood, Venous 10/03/2023 6:33 AM Release result to [facility] Immediate Disposition: Monitor for 2-3hrs post anesthesia and bed rest, and plan for Discharge home 10/03/23 Ramiro Hugo MD [facility] Cardiac Electrophysiology Disclaimer: This note was dictated by speech recognition, and every effort has been made to prevent any error in inoculator, however minor errors may be present [facility] Work Phone: 1(187) 212-597008-23-2024 History and physical note* Ramiro Hugo MD [...] Assessment/Plan Assessment & Plan SVT (supraventricular tachycardia) ([facility]-H[facility]) Plan for EP study and ablation I spent 20 minutes in the professional and overall care of this patient. Ramiro Hugo MD [facility] Work Phone: 1(154) 475-422308-23-2024 History and physical note* Ramiro Hugo MD [...] Assessment/Plan Assessment & Plan SVT (supraventricular tachycardia) ([facility]) Plan for EP study and ablation I spent 20 minutes in the professional and overall care of this patient. Ramiro Hugo MD documented in this [facility] Work Phone: [phone]) [phone] Nurse Note* Princess Marc RN - 10/03/2023 7:19 AM EDT POCT test negative [facility] Work Phone: [phone]) 340-991008-19-2024 Nurse Note* Seema Bowman RN - 09/29/2023 [...] N/A Last Colonoscopy: None Seema Bowman RN [facility]08-19-2024 Nurse Note* Seema Bowman RN - 09/29/2023 [...] None Seema Bowman RN documented in this encounterVeterans Health Administration08-19-2024 History of Present illness Narrative* Conor Duarte [...] the surgeon. She was seen by her COMPLIANCE AIDE physician who got her into see me [...] PAST SURGICAL HISTORY 06/17/2023: [facility]ECTOM[facility]: IUD REMOVAL No date: TONSILLECTOMY HX [...] (97.6 F), height 160 cm (5' 3), bokiop99.9 kg (114 lb 6.4 oz), last menstrual [...] will be forwarded to Dr. Rachell Amador, NOA.SEMICONDUCTOR WAFERS TESTER. Return to Clinic: The patient is instructed to follow-up with me as needed. Conor Duarte III, MD documented in this encounterVeterans Health Administration08-13-2024 History of Present illness Narrative* Mary Jo [...] some nausea - continue with zofran PRN [place] diet reviewed I have reviewed and updated past medical and surgical history, medications and allergies. Mary Jo Gee MD documented in this encounterVeterans Health Administration08-08-2024 History of Present illness Narrative* Barbi Tian, PIPE STEM SAWYER.SEMICONDUCTOR WAFERS TESTER - 09/18/2023 10:07 AM EDT Pcb Design Engineer offered: Patient declines. Keagan Alicia is a [...] Births2 Comment: No D&Cs for missed abs Recruitment Coordinator History LMP: 07/14/2023 (Approximate), IUD Age at Menarche: Age at First : Age at Menopause: Recruitment Coordinator History Comments: Sexual Activity: Yes; Male Contraception: No contraception data on record PAST MEDICAL HISTORY No date: Anemia No date: Chronic tonsillitis 10/08/2016: Depression 07/2022: Gall stone Comment: cholecystectomy after delivery No date: Paroxysmal SVT (supraventricular tachycardia) (HCC) 06/2023: Postoperative pulmonary embolism (HCC) No date: Psychiatric disorder Comment: depression, anxiety and PTSD PAST SURGICAL HISTORY 06/17/2023: [facility] date: TONSILLECTOMY HX FAMILY HISTORY Problem [...] and pain to incision sites Expanded ROS: COMPLIANCE AIDE: + heavy menstrual bleeding Allergies and current [...] external genitalia normal, normal Bartholin's glands, urethra, [place]'s glands, no vulvar lesions, no cervical lesions, [...] Level: 3 - Low documented in this encounterVeterans Health Administration08-08-2024 Telephone encounter Note * Telephone Encounter - Juliane Martin RN - 09/18/2023 8:29 AM EDT Pt spoke to PERSONAL VEHICLE ADVISOR this am and appt made for this morning with . Juliane Martin RN [facility]08-08-2024 Miscellaneous Notes* Telephone Encounter - Juliane Martin RN - 09/18/2023 8:29 AM EDT Pt spoke to PERSONAL VEHICLE ADVISOR this am and appt made for this morning with EH. Juliane Martin RN documented in this encounterVeterans Health Administration08-07-2024 Telephone encounter Note * Telephone Encounter - Juliane Martin RN - 09/17/2023 8:40 AM EDT Left message for patient to call office. [employer] message sent to patient. Juliane Martin RN [facility]08-07-2024 Miscellaneous Notes* Telephone Encounter - Juliane Martin RN - 09/17/2023 8:40 AM EDT Left message for patient to call office. [employer] message sent to patient. Juliane Martin RN [...] advise. Iveth Kohli RN documented in this encounterVeterans Health Administration08-06-2024 Telephone encounter Note * Telephone Encounter - Mary Jo Chance MD - 09/16/2023 5:11 PM EDT Tylenol #3 ordered for her. [facility]08-06-2024 Telephone encounter Note* Telephone Encounter - Chantelle Marquis RN - 09/16/2023 2:06 PM EDT Patient has been taking Ibuprofen 800 MG every 6 hours and alternating with Tylenol 1,000 MG. Patient does not think that she has bruising. Patient states any other doctor would regarding giving stronger pain reliever. Please advise. Chantelle Marquis RN [facility]08-06-2024 Telephone encounter Note* Telephone Encounter - Juliane Martin RN - 09/16/2023 1:09 PM EDT Left message for patient to call office. Juliane Martin RN [facility]08-06-2024 Telephone encounter Note* Telephone Encounter - Mary [...] stronger then otc medications for this laparoscopy. [facility]08-06-2024 Telephone encounter Note* Telephone Encounter - Iveth [...] or concerns. Please advise. Iveth Kohli RN [facility]08-05-2024 NoteHNO ID: [id number] Author: YAA TREADWELL APRN.RETAIL SHIFT MANAGER Service: Anesthesiology Author Type: Nurse Pulley Worker Type: Anesthesia Procedure Notes Filed: 09/15/2023 08:51 Note Text: ANESTHESIOLOGY PROCEDURE NOTE Airway General Information Procedure Start Time/Medication Administration: 09/15/2023 8:40 AM Procedure End Time: 09/15/2023 8:43 AM Patient location during procedure: OR Timeout Performed Pre-procedure: timeout performed Consent Obtained: Yes Patient identity confirmed: arm band Staffing RETAIL SHIFT MANAGER: Yaa Treadwell APRN.RETAIL SHIFT MANAGER Performed by: RETAIL SHIFT MANAGER Indications and Patient Condition Indications for airway [...] September 15, 2023 TIME: 8:50 AM CSN: [id number] History and physical note * Mary Jo [...] PAST SURGICAL HISTORY 06/17/2023: [facility]OM[facility]: TONSILLECTOMY HX Current Outpatient Medications [...] medications and allergies Mary Jo Barnett MD [facility]08-02-2024 History and physical note* Mary Jo Chance [...] PAST SURGICAL HISTORY 06/17/2023: [facility]CYSTECTOMY [facility] date: TONSILLECTOMY HX Current Outpatient Medications [...] Mary Jo Barnett MD documented in this encounterVeterans Health Administration07-31-2024 Telephone encounter Note * Telephone Encounter - Juliane Matrin RN - 09/10/2023 9:53 AM EDT Request for 90 day supply. Pt last seen in office 08/19. Upcoming annual 02/03/24. Requested Prescriptions Pending Prescriptions Disp Refills norethindrone (AYGESTIN) 5 mg tablet [Pharmacy Med Name: NORETHINDRONE 5 MG TABLET] 90 tablet 1 Sig: TAKE 1 TABLET BY MOUTH EVERY DAY Juliane Martin RN [facility]07-31-2024 Miscellaneous Notes* Telephone Encounter - Juliane Martin RN - 09/10/2023 9:53 AM EDT Request for 90 day supply. Pt last seen in office 08/19. Upcoming annual 02/03/24. Requested Prescriptions Pending Prescriptions Disp Refills norethindrone (AYGESTIN) 5 mg tablet [Pharmacy Med Name: NORETHINDRONE 5 MG TABLET] 90 tablet 1 Sig: TAKE 1 TABLET BY MOUTH EVERY DAY Juliane Martin RN documented in this encounterVeterans Health Administration07-29-2024 Telephone encounter Note * Telephone Encounter - Joyce Mishra PA-C - 09/08/2023 10:13 AM EDT Good morning, I re-reviewed patient's chart with staff anesthesiologist, Dr. Coker, in light of patient's recent appointment with her mailhouse operator Dr. Fernando Noriega on 09/03/23 (A&P [...] Continue follow-up with hematology -Echocardiogram done at [facility] showed normal LV and RV function with no valvular abnormalities -For her planned surgery if she stays as inpatient recommend for her to wear SCDs at all times and to use prophylactic subcutaneous heparin. Also discussed early mobilization to prevent VTE # SVT -Follow-up with electrophysiology for outpatient SVT ablation Norbert Fernandes MD [facility] Interventional Cardiology Endovascular Interventions [email or web address] [facility]07-29-2024 Miscellaneous Notes* Telephone Encounter - Joyce Mishra PA-C - 09/08/2023 10:13 AM EDT Good morning, I re-reviewed patient's chart with staff anesthesiologist, Dr. Coker, in light of patient's recent appointment with her mailhouse operator Dr. Fernando Noriega on 09/03/23 (A&P [...] Continue follow-up with hematology -Echocardiogram done at [facility] showed normal LV and RV function with no valvular abnormalities -For her planned surgery if she stays as inpatient recommend for her to wear SCDs at all times and to use prophylactic subcutaneous heparin. Also discussed early mobilization to prevent VTE # SVT -Follow-up with electrophysiology for outpatient SVT ablation Norbert Fernandes MD [facility] Interventional Cardiology Endovascular Interventions [email or web address] * Telephone Encounter - Chantelle Marquis RN - 09/05/2023 1:07 PM EDT Patient called the office back after viewing [employer] message. States she never received any voicemail messages from our office. Confirmed that we had the correct phone number on file. Patient voiced her frustration. States her Rehabilitation Medicine Physician never stated that she would need to [...] the office. Surgery sheet given back to cook 3 pastry to cancel. Chantelle Marquis RN * Telephone [...] Joyce Mishra PA-C PACC documented in this encounterVeterans Health Administration07-26-2024 Telephone encounter Note * Telephone Encounter - Chantelle Marquis RN - 09/05/2023 1:07 PM EDT Patient called the office back after viewing [employer] message. States she never received any voicemail messages from our office. Confirmed that we had the correct phone number on file. Patient voiced her frustration. States her Rehabilitation Medicine Physician never stated that she would need to post pone this surgery with DM. Advised that DM would return to the office next week to look at next available dates. Patient states she might look for another doctor to remove the IUD. Stated that we screwed it up once, what's keeping you guys from screwing it up again. Chantelle Marquis RN [facility]07-24-2024 Telephone encounter Note* Telephone Encounter - Chantelle Marquis RN - 09/03/2023 11:18 AM EDT 2nd message left for patient to call the office. Surgery sheet given back to cook 3 pastry to cancel. Chantelle Marquis RN [facility]07-23-2024 Telephone encounter Note* Telephone Encounter - Chantelle Marquis RN - 09/02/2023 2:04 PM EDT Left message for patient to call office. Chantelle Marquis RN [facility]07-23-2024 Telephone encounter Note* Telephone Encounter - aYmila Ballard MD - 09/02/2023 1:34 PM EDT Responding as Dr. Barnett is out this week. Please notify patient that non emergent surgery needs will need to wait until after her ablation for SVT scheduled in September due to concerns w/ this and recent PE. Dr. Barnett can look at surgery reschedule dates when she returns. Yamila Ballard MD [facility] Work Phone: 1(419) [phone] Telephone encounter Note* Telephone Encounter - Joyce [...] 10/03/23)? Thank you, Joyce Mishra PA-C PACC [facility]07-22-2024 Instructions* Patient Instructions* Joyce Mishra PA-C - 09/01/2023 9:25 AM EDT PATIENT PREOPERATIVE INSTRUCTIONS Froilan Chance* has scheduled you for your procedure at this surgery center: [facility]: [phone] -- [address] [address]. Please read below carefully for your personalized [...] Procedures: - YOU MUST HAVE A RESPONSIBLE MAINTENANCE ADVISOR TAKE YOU HOME. A SUPPORT DIRECTOR OR REGULATORY ANALYST CANNOT BE MADE A RESPONSIBLE MAINTENANCE ADVISOR. - We recommend that a responsible person [...] Advance Directive, please fax a copy to [phone] or email to for it to be [...] your chart that day. documented in this encounterVeterans Health Administration07-22-2024 History and physical note * Joyce Mishra PA-C - 09/01/2023 9:20 AM EDT Images from the original note were not included. [facility] HISTORY AND PHYSICAL EXAMINATION SERVICE DATE: 09/01/2023 SERVICE TIME: 9:18 AM PRIMARY CARE PHYSICIAN: Rachell Amador APRN.SEMICONDUCTOR WAFERS TESTER Assessment Patient has the following medical conditions [...] large neck Non-male patient STOP-Bang Score: 1 [id number] Score: Age: <65 Sex: female CHF history: No Hypertension history: No Stroke/TIA/thromboembolism history: Yes Vascular disease history: No Diabetes history: No [id number] Score: 3 ANESTHESIA FINDINGS: Intubation History: No [...] PATIENT TO DISCUSS PRE-OP ELIQUIS INSTRUCTIONS WITH CANAL EQUIPMENT MAINTENANCE SUPERVISOR 09/03/23. CONSULTS: The following consults have been initiated at this time: cardiology (Pt has appt with outside mailhouse operator 09/02, pt told me Dr. Fernando [...] fevers. Neurological: No history of TIA's, stroke, OUTSOLES CHANNEL OPENER tumor, impaired sensorium, hemiplegia, paraplegia orquadraplegia. No [...] > 1 time per night or hematuria. COMPLIANCE AIDE: See HPI. Endocrine: No history of diabetes. [...] HISTORY Procedure Laterality Date CHOLECYSTECTOMY HX [facility] HX FAMILY HISTORY Problem Relation Age [...] Prior to Admission medications as of 09/01/23 0995 Medication Sig Last Dose Taking apixaban (ELIQUIS) [...] Holter 07/2023 Recent Results (from the past 09366 hour(s)) ECHO Collection Time: 08/25/23 10:59 AM [...] DATE: 09/01/2023 TIME: 9:18 AM PAGER/CONTACT #: [facility]07-22-2024 History and physical note* Joyce Mishra PA-C - 09/01/2023 9:20 AM EDT Images from the original note were not included. [place] [facility]esthesia [facility] HISTORY AND PHYSICAL EXAMINATION SERVICE DATE: 09/01/2023 SERVICE TIME: 9:18 AM PRIMARY CARE PHYSICIAN: Rachell Amador APRN.SEMICONDUCTOR WAFERS TESTER Assessment Patient has the following medical conditions [...] large neck Non-male patient STOP-Bang Score: 1 [id number] Score: Age: <65 Sex: female CHF history: No Hypertension history: No Stroke/TIA/thromboembolism history: Yes Vascular disease history: No Diabetes history: No [id number] Score: 3 ANESTHESIA FINDINGS: Intubation History: No [...] PATIENT TO DISCUSS PRE-OP ELIQUIS INSTRUCTIONS WITH CANAL EQUIPMENT MAINTENANCE SUPERVISOR 09/03/23. CONSULTS: The following consults have been initiated at this time: cardiology (Pt has appt with outside mailhouse operator 09/02, pt told me Dr. Fernando [...] fevers. Neurological: No history of TIA's, stroke, OUTSOLES CHANNEL OPENER tumor, impaired sensorium, hemiplegia, paraplegia orquadraplegia. No [...] > 1 time per night or hematuria. COMPLIANCE AIDE: See HPI. Endocrine: No history of diabetes. [...] HISTORY Procedure Laterality Date CHOLECYSTECTOMY HX [facility] TONSILLECTOMY HX FAMILY HISTORY Problem Relation Age [...] Holter 07/2023 Recent Results (from the past 95131 hour(s)) ECHO Collection Time: 08/25/23 10:59 AM [...] 9:18 AM PAGER/CONTACT #: documented in this encounterVeterans Health Administration07-19-2024 Telephone encounter Note * Telephone Encounter - Mary Jo Chance MD - 08/29/2023 9:18 AM EDT Surgical request ordered [facility] Work Phone: 1(999) 402-268207-19-2024 Miscellaneous Notes* Telephone Encounter - Mary Jo Chance MD - 08/29/2023 9:18 AM EDT Surgical request ordered * Telephone Encounter - Chantelle Marquis RN - 08/27/2023 12:45 PM EDT Patient notified. She would like surgery @ [place] on 09/15/23 Pre Op scheduled for 09/12/23 with DM. Yoana- do you already have a surgery sheet for her? Chantelle Marquis RN * Telephone Encounter - Tamie Steward LPN - 08/26/2023 2:36 PM EDT Left message to call office. Next available date for surgery is 09/14 at [facility] or 09/18 at [facility]. Patient will need a pre-op appointment [...] her pre op visit. documented in this encounterVeterans Health Administration07-17-2024 Telephone encounter Note * Telephone Encounter - Chantelle Marquis RN - 08/27/2023 12:45 PM EDT Patient notified. She would like surgery @ [place] on 09/15/23 Pre Op scheduled for 09/12/23 with DMCaitlin Lees- do you already have a surgery sheet for her? Chantelle Marquis, RN [facility]07-16-2024 Telephone encounter Note* Telephone Encounter - Tamie Steward LPN - 08/26/2023 2:36 PM EDT Left message to call office. Next available date for surgery is 09/14 at [facility] or 09/18 at [facility]. Patient will need a pre-op appointment with Dr. Barnett. [facility]07-16-2024 Telephone encounter Note* Telephone Encounter - Tamie [...] discuss details at her pre op visit. [facility]07-16-2024 Telephone encounter Note* Telephone Encounter - Brina Geller MA - 08/26/2023 9:09 AM EDT Patient is informed Brina Geller MA [facility]07-16-2024 Telephone encounter Note* Telephone Encounter - Brina Geller MA - 08/26/2023 9:09 AM EDT ----- Message from Rachell Amador APRN.CNP sent at 08/26/2023 9:08 AM EDT ----- Echo was normal. [facility]07-16-2024 Miscellaneous Notes* Telephone Encounter - Brina Geller MA - 08/26/2023 9:09 AM EDT Patient is informed Brina Geller MA * Telephone Encounter - Brina Geller MA - 08/26/2023 9:09 AM EDT ----- Message from Rachell Amador APRN.SEMICONDUCTOR WAFERS TESTER sent at 08/26/2023 9:08 AM EDT ----- Echo was normal. documented in this encounterVeterans Health Administration07-11-2024 History of Present illness Narrative* Ramiro Hugo [...] Smokes marijuana every other day FamHx: pGF MO in 30 Objective Current Outpatient Medications Medication [...] normal. My Interpretation of Reviewed Study(s): 14-day ekg monitor (July 2023): Predominant rhythm sinus with [...] including weight restrictions and she has an 8-sdfwr-pzgd-old. Patient did state that she was able to get family members to help with childcare while she is recovering postprocedurally. Metoprolol 25mg PRN - will change it BID if increasing frequency Plan for SVT ablation # Pre-procedure Planning Procedure Type: SVT RFA - EnSite Planned Date: 10/03/23 - [facility] Anesthesia Needed: MAC Anticoagulation: Apixaban 5mg BID, [...] in 5-6 weeks post-procedure Ramiro Hugo MD [facility] Cardiac Electrophysiology [email or web address] Disclaimer: This note was dictated by speech recognition, and every effort has been made to prevent any error in inoculator, however minor errors may be present documented in this [facility]Select [facility] Work Phone: 1(376) 268-826807-10-2024 History of Present illness Narrative* Lisette Marquez [...] PATIENT PRESENTS WITH AN IMPLANTABLE OR ATTACHED CNC SERVICE ENGINEER: No RADIOLOGY DEPARTMENT: General X-ray: Exam(s) Completed: Pelvis X-Ray: Pelvis General AP and Pelvis inlet/outlet PERIPHERAL IV DATA: Not applicable SIGNED BY: RT Eric(R) August 20, 2023 12:53 PM documented in this encounterVeterans Health Administration07-10-2024 History of Present illness Narrative* Mary Jo [...] Births2 Comment: No D&Cs for missed abs Recruitment Coordinator History LMP: 07/14/2023 (Approximate), IUD Age at Menarche: Age at First : Age at Menopause: Recruitment Coordinator History Comments: Sexual Activity: Yes; Male Contraception: No contraception data on record PAST MEDICAL HISTORY Diagnosis Date Anemia Chronic tonsillitis Depression 10/08/2016 Gall stone 07/2022 cholecystectomy after delivery Postoperative pulmonary embolism (HCC) 06/2023 Psychiatric disorder depression, anxiety and PTSD PAST SURGICAL HISTORY Procedure Laterality Date CHOLECYSTECTOMY [facility] T[facility]ILLECT[facility] HX FAMILY HISTORY Problem Relation Age [...] external genitalia normal, normal Bartholin's glands, urethra, Lone Jack's glands, no vulvar lesions, no cervical lesions, [...] which included preparing to see the patient, ceba-bw-[id number] patient care, completing clinical documentation, obtaining and/or reviewing separately obtained history, performing a medically appropriate examination, counseling and educating the pat ient/family/caregiver, and ordering medications, tests, or procedures. Mary Jo Gee MD documented in this encounterVeterans Health Administration07-09-2024 History of Present illness Narrative* Herve Rea [...] OBGYN Call Schedule: QGenda documented in this encounterVeterans Health Administration07-09-2024 History of Present illness Narrative* Sandra Cole [...] daily Sandra Cole APRN.CNP documented in this encounterVeterans Health Administration07-09-2024 Telephone encounter Note * Telephone Encounter - Ana Laura Guillen MA - 08/19/2023 8:27 AM EDT pharmacy electronically requesting refills as follows: Last seen 07/31/23 . Last refill 07/31/23 . Requested Prescriptions Pending Prescriptions Disp Refills metoprolol tartrate, short acting, (LOPRESSOR) 25 mg tablet [Pharmacy Med Name: METOPROLOL [id number] MG TAB] 60 tablet 0 Sig: take 1 tablet by mouth twice a day as needed Please review and advise. Ana Laura Guillen MA [facility]07-09-2024 Miscellaneous Notes* Telephone Encounter - Ana Laura Guillen MA - 08/19/2023 8:27 AM EDT pharmacy electronically requesting refills as follows: Last seen 07/31/23 . Last refill 07/31/23 . Requested Prescriptions Pending Prescriptions Disp Refills metoprolol tartrate, short acting, (LOPRESSOR) 25 mg tablet [Pharmacy Med Name: METOPROLOL [id number] MG TAB] 60 tablet 0 Sig: take 1 tablet by mouth twice a day as needed Please review and advise. Ana Laura Guillen MA documented in this encounterVeterans Health Administration07-09-2024 Telephone encounter Note * Telephone Encounter - Sandra Cole APRN.CNP - 08/19/2023 6:59 AM EDT +yeast, Diflucan sent. Sandra Cole APRN.CNP [facility]07-09-2024 Miscellaneous Notes* Telephone Encounter - Sandra Cole APRN.CNP - 08/19/2023 6:59 AM EDT +yeast, Diflucan sent. Sandra Cole APRN.CNP documented in this encounterVeterans Health Administration07-08-2024 History of Present illness Narrative* Sandra Cole APRN.CNP - 08/18/2023 8:19 AM EDT Pcb Design Engineer offered: Patient declines. Keagan Alicia is a [...] Births2 Comment: No D&Cs for missed abs Recruitment Coordinator History LMP: 07/14/2023 (Approximate), IUD Age at Menarche: Age at First : Age at Menopause: Recruitment Coordinator History Comments: Sexual Activity: Yes; Male Contraception: No contraception data on record PAST MEDICAL HISTORY Diagnosis Date Anemia Chronic tonsillitis Depression 10/08/2016 Gall stone 07/2022 cholecystectomy after delivery Postoperative pulmonary embolism (HCC) 06/2023 Psychiatric disorder depression, anxiety and PTSD PAST SURGICAL HISTORY Procedure Laterality Date CHOLECYSTECTOMY HX [facility] TONSILLECTOMY HX FAMILY HISTORY Problem Relation Age [...] external genitalia normal, normal Bartholin's glands, urethra, Lone Jack's glands, no vulvar lesions, no cervical lesions, [...] Level: 4 - Moderate documented in this encounterVeterans Health Administration06-27-2024 Telephone encounter Note * Telephone Encounter - Corinne Caicedo - 08/07/2023 12:23 PM EDT The following medication(s) is being requested: LAST APPT - 07/14/23 NEXT APPT - N/A Requested Prescriptions Pending Prescriptions Disp Refills mirtazapine (REMERON) 15 mg tablet [Pharmacy Med Name: MIRTAZAPINE 15 MG TABLET] 90 tablet 1 Sig: TAKE 1 TABLET BY MOUTH EVERYDAY AT BEDTIME Please process accordingly Corinne Caicedo [facility]06-27-2024 Miscellaneous Notes* Telephone Encounter - Corinne Caicedo [...] process accordingly Corinne Caicedo documented in this encounterVeterans Health Administration06-20-2024 Instructions* Patient Instructions* Rachell Amador APRN.CNP - 07/31/2023 3:35 PM EDT Cardiology [phone] Dr. Jonathan Dutta Cardiovascular Medicine [facility] Medical Office Building [address] [place] [address] Appointment: [phone] Desk: [phone] Cardiology: Dr. Carl Peña MD [address] [place] [id number] Cardiology: DO Grant Galeana documented in this encounterVeterans Health Administration06-20-2024 History of Present illness Narrative* Rachell Amador [...] three days later. She did see a mailhouse operator with in [place] and the Eliquis will be continued for a total of 3 months. A 14 day Holter monitor was also ordered and she completed this on 07/23/23 but hasn't heard anything about the results yet although she can see them on [employer]. She is here to discuss the results. [...] sudden cardiac but notes a history of MO in a fewof her family members. She [...] HISTORY Procedure Laterality Date CHOLECYSTECTOMY HX [facility] TONSILLECTOMY HX Social History Tobacco Use Smoking [...] does not want to return to the mailhouse operator that shesaw previously. She was advised [...] patient. Rachell Amador APRN.CNP documented in this encounterVeterans Health Administration06-13-2024 History of Present illness Narrative* Gino Valero [...] intercourse Gino Valero APRN.CNM documented in this encounterVeterans Health Administration06-04-2024 History of Present illness Narrative* Chantelle Low PA-C - 07/15/2023 9:38 AM EDT Images from the original note were not included. [facility] SMOKING CESSATION PROGRAM CONSULT NOTE I will communicate the consult note back to the requesting health care provider by way of the shared medical record for internal providers or letter via the [employer] for external providers. July 15, 2023 CONSULTING PHYSICIAN/REFERRAL: Mitra Reed [address] [facility] [address] REASON FOR CONSULT/REFERRAL: Tobacco Cessation Treatment HPI: [...] HISTORY Procedure Laterality Date CHOLECYSTECTOMY HX 06/17/2023 [facility] TONSILLECTOMY HX MEDICATIONS: lamoTRIgine (LAMICTAL) 25 mg [...] PA-C Pulmonary & Critical Care Medicine Respiratory [place] July 15, 2023 9:38 AM PAYTON Reed [address] [place] [id number] and Rachell Amador APRN.SEMICONDUCTOR WAFERS TESTER via EPIC documented in this encounterVeterans Health Administration06-03-2024 Note* Addendum Note - Dipti Freed DO - 07/14/2023 3:30 PM EDTAddended by: DIPTI FREED on: 07/14/2023 03:30 PM Modules accepted: Orders [facility]06-03-2024 Miscellaneous Notes* Addendum Note - Dipti Freed DO - 07/14/2023 3:30 PM EDTAddended by: DIPTI FREED on: 07/14/2023 03:30 PM Modules accepted: Orders documented in this encounterVeterans Health Administration06-03-2024 NoteHNO ID: [id number] Author: DIPTI FREED DO Service: ? Author [...] visit. Either the patient or their legal sales representative sales manager has been informed of the risks and [...] it for total of 14 days for mailhouse operator. She has to see a pathology collector as she developed a PE. She stopped [...] HISTORY Procedure Laterality Date CHOLECYSTECTOMY HX [facility]/17/[facility]23 [facility] TONSILLECTOMY HX Current Outpatient Medications Medication Sig [...] 1. D/c'd Gordy ring/gayla (more content not included)...[facility] 07-14-2023 History of Present illness Narrative* [...] visit. Either the patient or their legal sales representative sales manager has been informed of the risks and [...] it for total of 14 days for mailhouse operator. She has to see a pathology collector as she developed a PE. She stopped [...] HISTORY Procedure Laterality Date CHOLECYSTECTOMY HX 06/17/2023 [facility] TONSILLECTOMY HX Current Outpatient Medications Medication Sig [...] the date of the service which included [id number] patient care, completing clinical documentation, obtaining and/or reviewing separately obtained history, and performing a medically appropriate examination. ADD ON PSYCHOTHERAPY CODE : No SIGNATURE: Dipti Freed DO PATIENT NAME: Keagan Alicia DATE: July 14, 2023 TIME: 2:19 PM documented in this encounterVeterans Health Administration05-28-2024 History of Present illness Narrative* Alla Llanes [...] to work. 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 Home Medications: Prior to Admission medications Medication [...] Alla Llanes MD 07/08/2023 [facility] Work Phone: [phone] 107-239205-24-2024 Telephone encounter Note* Telephone Encounter - Corinne [...] EVERY DAY Please process accordingly Corinne Caicedo [facility]05-24-2024 Miscellaneous Notes* Telephone Encounter - Corinne Caicedo [...] process accordingly Corinne Caicedo documented in this encounterVeterans Health Administration05-22-2024 Instructions* Patient Instructions* Mitra Reed, NOA.SEMICONDUCTOR WAFERS TESTER - 07/02/2023 2:07 PM EDT SMOKING CESSATION [...] desirable brand of cigarettes. ___ Discard your power distribution engineer. Use matches. Carry your cigarettes in a [...] why you quit. Also remember that a [employer] spends billions of dollars each year trying [...] of all your medications. documented in this encounterVeterans Health Administration05-22-2024 History of Present illness Narrative* Mitra Reed APRN.CNP - 07/02/2023 1:44 PM EDT Subjective Keagan Alicia is a 22 year old female here today for ER follow-up. I reviewed past medical, surgical, social, and family histories today and updated chart. Allergies, chronic medications, and supplements were also reviewed. HPI Gallbladder removed on 06/17/[address] Llanes @ [facility] Went home same day Went to [place] ER on 06/18/23 because of vomiting, could not hold down any fluids Returned to [place] ER on 06/19/23 d/t intractable vomiting. She [...] in her lung. She went back to [place] ER on 06/21/23 to get confirmation lung scan. She was started on Eliquis. She went to [place] ER on 06/22/23 for ongoing pain, nausea, vomiting, chills, shakiness. Labs completed showing mildly low potassium and glucose. UA negative for infection. CT A/P performed - normal. She was treated with IV fluids and zofran. Discharged home. Went to [place] ER on 06/24/23 for numbness in her feet, heavy vaginal bleeding. Labs and CT A/P performed - normal Patient saw her COMPLIANCE AIDE Dr Ortez on 06/26/23 - negative GC, trichomonas. Mirena IUD was placed. Patient saw gusset stitcher Dr. Miki Jaramillo [facility] earlier today. She is scheduled for US [...] Sitay Has been going on for years Rehabilitation Medicine Physician - Dr Fernando Noriega She does have [...] HISTORY Procedure Laterality Date CHOLECYSTECTOMY HX 06/17/2023 [facility] TONSILLECTOMY HX ALLERGIES Latex MEDICATIONS apixaban (ELIQUIS) [...] She is not toxic-appearing. HENT: Mouth/Throat: Lips: Theodosia. Mouth: Mucous membranes are moist. Pharynx: Oropharynx [...] copied and pasted from Records found in [facility]: HEPATOBILIARY SCAN (HIDA) The patient [...] pelvis from 06/19/2023 COMPARISON: None.. ACCESSION NUMBER(S): [id number] ORDERING CLINICIAN: SATURNINO VELÁZQUEZ TECHNIQUE: CT angiography [...] Rosa Chavarria 06/21/2023 9:34 AM Dictation workstation: [id number] Latest Ref Rng 06/22/2023 WBC 3.70 - [...] Abs Lymph 1.00 - 4.00 k/uL 2.05 Kingfisher% % 5.8 Abs Kingfisher <0.87 k/uL 0.31 Eosin% % 3.8 Abs [...] LOZENGE Mitra Reed APRN.ULISSES documented in this encounterVeterans Health Administration05-22-2024 History of Present illness Narrative* Miki Jaramillo MD - 07/02/2023 8:00 AM EDT Patient ID:Keagan Alicia is a 22 y.o. year old female patient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 led by [facility] department Resilient Mamas - Support Group Resilentmamas.org The POEM support group [phone] Www.poemonline.org Follow on facebook - SARTHAK rodríguez Online support meetings PSI https://www..net/get-help/bcg-mgqezt-rkbhbph-meetings/ [facility] mommy and me virtual support group 11:30-1pm Support for mothers and new babies and toddlers [place] childbirth education: Childbirth @cc.org or call [phone] CRISIS: CRISIS HOTLINE [phone], 911 or go to the nearest ER. [facility] [phone] / [facility] [phone] https://www.[facility].org Crisis text line text the word HOME to 517429 [facility] [address] [address] [facility] [id number] www.PurePlay Enid Larios clinical counseling [address] [address] www.Relativity Technologies [phone] Holding [facility] psychotherapy Ellie Luevano [facility] MAID CLEANING COOKING-S [address] [facility] www.Noble Biomaterials [phone]/ [place] [phone] They all offer virtual. All work with trauma Support groups Online support meetings PSI https://www..net/get-help/lop-crlgao-fjvtgww-meetings/ Here are the support groups they offer: Support of parents of 1 to 4 years old children POEM ( Outreach and Encouragement for Moms) offers free support for mothers experiencing depression, anxiety, and other mood and anxiety disorders. Masks are recommended but not required. No pre-registration required. Babies in arms welcome. meetings now take place on the and Friday of each month Location: [facility] [address] [place] [address] Room 122 (library room) 7-8:00 p.m. When you enter the mandaen parking lot off of [address], the entrance door closest to our meeting room is on the front of the building toward the right. For those who are more comfortable with a virtual platform, [employer] offers online support group options several days of the week. To register for an online group or to find out more about POEM, website at: https://mhaohio.org/get-help/yaeedclf-imlzwi-cqogsz/poem-services/ offer a confidential helpline: private Facebook group is called [facility] Here are the groups they offer: Traumatic childbirth resources: Http://pattch.org/ https://www.HighlightCamtemitopeMidverse Studios/ documented in this encounterVeterans Health Administration03-13-2024 History of Present illness Narrative* Gino Valero [...] control Gino Valero APRN.CNM documented in this encounterVeterans Health Administration01-29-2024 Miscellaneous Notes* Telephone Encounter - Antionette Ward [...] hCG. Chantelle Marquis RN documented in this encounterVeterans Health Administration12-21-2023 History of Present illness Narrative* Prabhu Ortez MD - 01/30/2023 12:12 PM EST VISIT Keagan Alicia is a 22 year old year old here for visit. Delivery Summary: ROS/ Recovery: Feeding: Bottle feeding problems: None Menses since delivery: spotting Menstrual pattern prior to : Regular periods [place] since delivery: Not resumed Depression: denies symptoms [...] external genitalia normal, normal Bartholin's glands, urethra, Lone Jack's glands, no vulvar lesions, no cervical lesions, [...] injections Prabhu Ortez MD documented in this encounterVeterans Health Administration11-06-2023 History of Present illness Narrative* Iveth Kohli RN - 12/16/2022 8:44 AM EST Patient delivered via by Evangelina on 12/15/22 at [facility]. See OB history. Iveth Kohli RN documented in this encounterVeterans Health Administration11-03-2023 History of Present illness Narrative* Joyce Huston MA - 12/13/2022 12:35 PM EDT POPULATION HEALTH NAVIGATION OUTREACH Action/FYI 1st attempt: Called and left message to call back to discuss seam feller. message sent. Patient Identified by Name and : NO Outreach Outcome/Action Unable to reach patient: Left message MyChart message sent Did you use a PCP flex slot to schedule this appointment? N/A Reason for Outreach [place] Payer: [facility]: [facility] / Plan: [facility] / Product Type: Medicaid / Care Gap Reviewed:: N/A Reminder: Reminder note to check Health Maintenance for items below Health Maintenance items due: Covid-19 Vaccine(1) Never done Meningococcal B Vaccine: Consider Based On Risk(1 of 2 - Patient Seeks Protection) Never done Influenza Vaccine(1) due on 10/11/2022 Navigation Signature: Joyce Briones MA December 13, 2022 12:35 PM documented in this encounterVeterans Health Administration10-24-2023 Miscellaneous Notes* Quick Notes - Prabhu Ortez [...] reviewed. Prabhu Ortez MD documented in this encounterVeterans Health Administration10-24-2023 Instructions* Patient Instructions* Masters Kayla Krishnan - 12/03/2022 2:21 PM EDT SEQUENTIAL SCREENINGS The [facility] offers sequential screenings for women who are [...] testing. It will require an appointment withour integrated pest management technician. This is not an ultrasound performed [...] the above symptoms, contact our office at [phone] and ask to speak with anurse. After hours, you can call doctors registry at [phone] OR call [facility] at [phone] ask to have the doctor organic section technical lead paged. If you consider this an emergency, dial or go to your nearest emergency department. NEED HELP? Are you dealing with a violent or abusive relationship? Are you a victim of rape or sexual assult? Call [facility] 24 hour Crisis Hotline: 691.703.2307 or 753-602-6214. MANUAL Your Guide to a Healthy manual is now on-line. Visit the [facility].org/HealthyPregnancyGuide to download your free copy documented in this encounterVeterans Health Administration10-16-2023 Miscellaneous Notes* Quick Notes - Jaquelin Hi [...] week Jaquelin Hi APRN.CNM documented in this [facility]10-16-2023 Miscellaneous Notes* Telephone Encounter - Josefa Ricks RN - 11/25/2022 11:29 AM EDT 2nd risk assessment form submitted 11/25/22 Josefa Ricks RN documented in this encounterVeterans Health Administration10-10-2023 Miscellaneous Notes* Quick Notes - Prabhu Ortez [...] reviewed. Prabhu Ortez MD documented in this encounterVeterans Health Administration10-10-2023 Instructions* Patient Instructions* Masters Eulogio Kayla - 11/19/2022 3:41 PM EDT SEQUENTIAL SCREENINGS The [facility] offers sequential screenings for women who are [...] testing. It will require an appointment withour integrated pest management technician. This is not an ultrasound performed [...] the above symptoms, contact our office at [phone] and ask to speak with anurse. After hours, you can call doctors registry at [phone] OR call [facility] at [phone] ask to have the doctor organic section technical lead paged. If you consider this an emergency, dial 9--6 or go to your nearest emergency department. NEED HELP? Are you dealing with a violent or abusive relationship? Are you a victim of rape or sexual assult? Call [facility] ([place]) 24 hour Crisis Hotline: 782.794.4622 or 457-224-1796. MANUAL Your Guide to a Healthy manual is now on-line. Visit [facility]org/HealthyPregnancyGuide to download your free copy documented in this encounterVeterans Health Administration10-09-2023 Instructions* Patient Instructions* Steven Cruz Cma - 11/18/2022 1:12 PM EDT SEQUENTIAL SCREENINGS The [facility] offers sequential screenings for women who are [...] testing. It will require an appointment withour integrated pest management technician. This is not an ultrasound performed [...] the above symptoms, contact our office at [phone] and ask to speak with anurse. After hours, you can call doctors registry at [phone] OR call [facility] at [phone] ask to have the doctor organic section technical lead paged. If you consider this an emergency, dial 0-7-5 or go to your nearest emergency department. NEED HELP? Are you dealing with a violent or abusive relationship? Are you a victim of rape or sexual assult? Call [facility] ([place]) 24 hour Crisis Hotline: 722.915.7900 or 221-650-0358. MANUAL Your Guide to a Healthy manual is now on-line. Visit the [facility]/HealthyPregnancyGuide to download your free copy documented in this encounterCleveland [phone] Miscellaneous Notes* Telephone Encounter - Annmarie Rene RN - 10/24/2022 9:50 AM EDT 1st risk assessment form submitted 10/24/22 Annmarie Rene RN documented in this encounterVeterans Health Administration08-31-2023 History of Present illness Narrative* Chantelle Marquis RN - 10/10/2022 11:34 AM EDT Received outside medical records from [place] MECHANICAL APPRENTICE. Updated patient's chart. Records placed in AGmailbox for upcoming NOB. Chantelle Marquis RN documented in this encounterVeterans Health Administration07-20-2023 Discharge summary Author Jimmy Anna [facility] August 29, 2022 5:52pm Note Date/Time August 29, 2022 3:46 pm [facility] Medical Records Department [address] [place] [address] Emergency Department Summary 08/29/22 MR#: [id number] Acct: [id number] Name: KEAGAN ALICIA Rep #:[id number] : 2000 21 From: Jimmy Anna MD [...] hersymptoms are improving. No fevers or chills. [facility] Medical History Depression Home Medications NK 08/21/18 [...] 78.5 H Lymph % (Auto) 13.8 L King[place] % (Auto) 6.4 Eos % (Auto) 0.8 [...] Sl. Cloudy Urine pH 6.0 Ur Specific Bomont 1.020 Urine Protein 15 H Urine Glucose [...] your Primary Care Provider. Call Doctors Registry ([phone]) or report to the closest Emergency Room. Call 911 if necessary. 08/29/22 1752 <Electronically signed by Jimmy Anan MD> Cosigner Signature (if applicable): CC: No Primary Care Physician ~ Signed [facility] Work Phone: [phone] Discharge summary Author Kristofer Low [facility] [facility] August 17, 2022 1:22pm Note Date/Time August 17, 2022 10:43 am [facility] Medical Records Department [address] [place] [address] Emergency Department Summary 08/17/22 MR#: [id number] Acct: [id number] Name: KEAGAN ALICIA Rep #:[id number] : 2000 21 From: Kristofer Low MD [...] [facility]. [facility] [...] went to bed she ate a hamburger. [facility] Medical History Depression Home Medications NK 08/21/18 [...] has an appointment with a surgeon in [place] as a result of her prior ultrasound [...] 76.2 H Lymph % (Auto) 15.6 L Kingfisher % (Auto) 7.1 Eos % (Auto) 0.5 [...] 11:53 EDT Reading Location ID and State: [facility] / [place] Tel , Service support , Discharge Plan Triage Chief Complaint: Abd Pain ED Provider: Kristofer Low Dx/Rx/DC Orders Clinical Impression: Second trimester , Cholelithiasis, Biliary colic Instructions: ED Gallstones with Biliary Colic Prescriptions: No Action NK Primary Care Provider: Care Physician,No [facility]-Staff[facility] - Doctor,Your [Non-Staff] - Keep Mireya appointment (Surgeon that you have an appt with) Activity Restrictions/Additional Instructions: Avoid fatty foods including animal meats as much as you are able. What to do if you have Problems For any increased pain, shortness of breath, bleeding, nausea or vomiting, chestpain, or any unexpected problems, contact your Primary Care Provider. Call [facility] ([phone]) or report to the closest Emergency Room. Call 911 if necessary. 08/17/22 1322 <Electronically signed by Kristofer Low MD> Cosigner Signature (if applicable): CC: No Primary Care Physician ~ Signed [facility] Work Phone: [phone]) 622-423210-03-2022 Instructions* Patient Instructions* Leeann Ascencio APRN.CNP - 11/12/2021 7:26 PM EDT Will send urine culture and call with results, also available on my chart Will send vaginal cultures will call and treat based on results HIV screening ordered - present to lab M-F [phone], Friday [id number] Will call with results. Follow up with COMPLIANCE AIDE as needed [facility] History of Present illness Narrative* Leeann Ascencio APRN.ULISSES - 11/12/2021 7:14 PM EDT Subjective The history is provided by the patient. No medical language specialist was used. HPI Keagan Alicia is a [...] have confirmed and edited as necessary, the [facility] Review of Systems Constitutional: Negative for [...] evaluation. Leeann Ascencio APRN.ULISSES documented in this [facility]22 History of Present illness Narrative* Steven Rojas [...] of care. This note was generated using [employer] software. It may contain errors in wording, punctuation, or spelling. Steven Rojas APRN.ULISSES documented in this [facility]-2018 History of Past illness Narrative* Problem Noted [...] of this encounter (statuses as of 01/31/2023) [facility] History of Past illness Narrative* Problem Noted [...] of this encounter (statuses as of 03/17/2023) [facility] of Past illness Narrative* Problem Noted [...] of this encounter (statuses as of 04/24/2023) [facility] of Past illness Narrative* Problem Noted [...] of this encounter (statuses as of 05/13/2023) [facility] noteNo assessment information availableWAvita [facility] Work Phone: Evaluation note* Diagnosis Screening for STD (sexually transmitted disease)- Primary Screening examination for venereal disease documented in this encounter [facility] note* Diagnosis Burning with urination- Primary Dysuria Exposure to HIV Contact with or exposure to other viral diseases Acute vaginitis Vaginitis and vulvovaginitis, unspecified documented in this encounter [facility] note* Diagnosis care, subsequent in third trimester- Primary 34 weeks gestation of state, incidental [facility] Diagnosis with care elsewhere in third trimester- Primary 34 weeks gestation of state, incidental [facility]* Diagnosis Encounter for supervision of normal first in third trimester- Primary Supervision of normal first 36 weeks gestation of state, incidental documented in this encounter [facility] note* Diagnosis Routine follow-up- Primary care and examination Routine follow-up [facility]* Diagnosis Spotting- Primary Other specified noninflammatory disorder of vagina Breakthrough bleeding on depo provera Metrorrhagia Episode of recurrent major depressive disorder, unspecified depression episode severity (HCC) Anxiety Anxiety state, unspecified PTSD (post-traumatic stress disorder) Posttraumatic stress disorder Post depression Mental disorders of mother, [facility] Diagnosis Panic disorder without agoraphobia- Primary Episode of recurrent major depressive disorder, unspecified depression episode severity (HCC) Anxiety Anxiety state, unspecified PTSD (post-traumatic stress disorder) Posttraumatic stress disorder Post depression Mental disorders of mother, [facility] Diagnosis Symptomatic cholelithiasis- Primary Symptomatic cholelithiasis- Primary documented in this encounter [facility] Work Phone: Evaluation note* Diagnosis Pain in the coccyx- Primary Other disorder of coccyx Tailbone injury, initial encounter Depression, unspecified depression type Generalized anxiety disorder [facility] encounter [facility]* Diagnosis Post depression- Primary Mental disorders [...] not elsewhere classified documented in this encounter [facility] Work Phone: Evaluation note* Diagnosis Postoperative pain- Primary Other acute postoperative pain documented in this encounter [facility] Work Phone: Evaluation note* Diagnosis Acute post-operative pain- Primary Acute post-operative pain Status post cholecystectomy Other acquired absence of organ Vomiting and diarrhea documented in this encounter [facility] Work Phone: Evaluation note* Diagnosis Single subsegmental pulmonary embolism without acute cor pulmonale (Multi)- Primary documented in this encounter [facility] Work Phone: Evaluation note* Diagnosis Dysfunctional uterine bleeding- Primary Other disorder of menstruation and other abnormal bleeding from female genital tract Post-op pain Other acute postoperative pain documented in this encounter [facility] Work Phone: Evaluation note* Diagnosis Palpitations- Primary Single subsegmental pulmonary embolism without acute cor pulmonale (Multi) Smoking addiction documented in this encounter [facility] Work Phone: Evaluation note* Diagnosis Abnormal uterine bleeding (AUB)- Primary Encounter for IUD insertion Encounter for insertion of intrauterine contraceptive device [facility]* Diagnosis Nausea and vomiting, unspecified vomiting type- Primary S/P cholecystectomy Other acquired absence of organ Single subsegmental pulmonary embolism without acute cor pulmonale (HCC) Vapes nicotine containing substance [facility]* Diagnosis Single subsegmental pulmonary embolism without acute cor pulmonale (Multi) documented in this encounter [facility] Work Phone: Evaluation note* Diagnosis Postoperative visit- Primary documented in this encounter [facility] Work Phone: Evaluation note* Diagnosis Single subsegmental pulmonary embolism without acute cor pulmonale (Multi) Other pulmonary embolism without acute cor pulmonale (Multi) documented in this encounter [facility] Work Phone: Evaluation note* Diagnosis Palpitations documented in this encounter [facility] Work Phone: Evaluation note* Diagnosis Panic disorder without agoraphobia- Primary anxiety Mental disorders of mother, documented [facility] encounter [facility]* Diagnosis Vaping nicotine dependence, non-tobacco product- Primary [facility]* Diagnosis Surveillance of previously prescribed intrauterine contraceptive device- Primary [facility]* Diagnosis Paroxysmal SVT (supraventricular tachycardia) (HCC)- Primary Paroxysmal supraventricular tachycardia Palpitations Single subsegmental pulmonary embolism without acute cor pulmonale (HCC) On continuous oral anticoagulation Long-term (current) use of anticoagulants Engages in vaping documented [facility]* Diagnosis Panic disorder without agoraphobia [facility]* Diagnosis Pelvic pain in female- Primary Unspecified symptom associated with female genital organs Intrauterine contraceptive device threads lost, initial encounter Irregular bleeding Irregular menstrual cycle [facility]* Diagnosis Paroxysmal SVT (supraventricular tachycardia) (HCC) Paroxysmal supraventricular tachycardia Palpitations [facility]* Diagnosis Encounter for IUD removal- Primary Encounter for removal of intrauterine contraceptive device Malpositioned intrauterine device (IUD), initial encounter [facility]* Diagnosis Pelvic pain in female Unspecified symptom associated with female genital organs Intrauterine contraceptive device threads lost, initial encounter Irregular bleeding Irregular menstrual cycle [facility]* Diagnosis Pelvic pain in female- Primary Unspecified symptom associated with female genital organs Malpositioned IUD, sequela [facility]* Diagnosis Malpositioned IUD, sequela Pelvic pain in female Unspecified symptom associated with female genital organs [facility]* Diagnosis Paroxysmal SVT (supraventricular tachycardia) (HCC) Paroxysmal supraventricular tachycardia Palpitations documented [facility] encounter [facility]* Diagnosis Malpositioned intrauterine device (IUD), sequela- Primary Malpositioned intrauterine device (IUD), sequela [facility]* Diagnosis Preoperative examination- Primary Preoperative examination, [...] Pt verbalized understanding. [facility] Diagnosis Malpositioned intrauterine device (IUD), [...] status Functional diarrhea [facility]* Diagnosis Preoperative examination- Primary Preoperative examination, [...] Other postprocedural status documented [facility] this [facility]* Diagnosis Preoperative examination- Primary Preoperative examination, unspecified Single subsegmental pulmonary embolism without acute cor pulmonale (HCC) Vapes nicotine containing substance Marijuana use Cannabis abuse, unspecified Generalized anxiety disorder Depression, unspecified depression type Paroxysmal SVT (supraventricular tachycardia) (HCC) Paroxysmal supraventricular tachycardia Vaginal discharge- Primary Leukorrhea, not specified as infective documented in this encounter [facility] note* Diagnosis Single subsegmental pulmonary embolism without acute cor pulmonale- Primary SVT (supraventricular tachycardia) ([facility]) Other specified cardiac dysrhythmias documented in this encounter [facility] Work Phone: Evaluation note* Diagnosis Preoperative examination- [...] supraventricular tachycardia Palpitations documented in this encounter [facility] note* Diagnosis Pulmonary embolism (Multi)- Primary Other pulmonary embolism and infarction SVT (supraventricular tachycardia) (CMS-HCC) Other specified cardiac dysrhythmias Palpitations SVT (supraventricular tachycardia) (CMS-HCC)- Primary Other specified cardiac dysrhythmias SVT (supraventricular tachycardia) (CMS-HCC) Other specified cardiac dysrhythmias documented in this encounter [facility] Work Phone: Evaluation note* Diagnosis SVT (supraventricular tachycardia) (CMS-HCC)- Primary Other specified cardiac dysrhythmias SVT (supraventricular tachycardia) ([facility]) Other specified cardiac dysrhythmias Palpitations SVT (supraventricular tachycardia) ([facility]) Other specified cardiac dysrhythmias documented in this encounter [facility] Work Phone: Evaluation note* Diagnosis SVT (supraventricular tachycardia) ([facility])- Primary Other specified cardiac dysrhythmias Atrial fibrillation, unspecified type (Multi) Palpitations documented in this encounter [facility] Work Phone: Evaluation note* Diagnosis Urinary tract infection in mother during first trimester of ([facility])- Primary Hypoglycemia Hypoglycemia, unspecified Nausea vomiting and diarrhea documented in this encounter [facility] Work Phone: Evaluation note* Diagnosis Preoperative examination- [...] History of depression documented in this encounter [facility] note* Diagnosis Preoperative examination- Primary Preoperative [...] episode of care [facility]* Diagnosis Preoperative examination- Primary Preoperative examination, unspecified Single subsegmental pulmonary embolism without acute cor pulmonale (HCC) Vapes nicotine containing substance Marijuana use Cannabis abuse, unspecified Generalized anxiety disorder Depression, unspecified depression type Paroxysmal SVT (supraventricular tachycardia) (HCC) Paroxysmal supraventricular tachycardia Encounter for screening for malformation using ultrasound- Primary 13 weeks gestation of state, incidental [facility]* Diagnosis Preoperative examination- Primary Preoperative examination, [...] mother, antepartum condition documented in this encounter [facility] note* Diagnosis Preoperative examination- Primary Preoperative [...] mother, antepartum condition documented [facility] this [facility]* Diagnosis Preoperative examination- Primary Preoperative examination, unspecified Single subsegmental pulmonary embolism without acute cor pulmonale (HCC) Vapes nicotine containing substance Marijuana use Cannabis abuse, unspecified Generalized anxiety disorder Depression, unspecified depression type Paroxysmal SVT (supraventricular tachycardia) (HCC) Paroxysmal supraventricular tachycardia Encounter for anatomic survey ([facility])- Primary Encounter for anatomic survey 20 weeks gestation of ([facility]) state, incidental documented in this [facility]* Diagnosis Preoperative examination- Primary Preoperative examination, unspecified Single subsegmental pulmonary embolism without acute cor pulmonale (HCC) Vapes nicotine containing substance Marijuana use Cannabis abuse, unspecified Generalized anxiety disorder Depression, unspecified depression type Paroxysmal SVT (supraventricular tachycardia) (HCC) Paroxysmal supraventricular tachycardia Supervision of other high risk pregnancies, second trimester (HCC)- Primary 20 weeks gestation of ([facility]) state, incidental History of shoulder dystocia in prior Rh negative state in antepartum period (HCC) Rhesus isoimmunization affecting management of mother, antepartum condition [facility]* Diagnosis Preoperative examination- Primary Preoperative examination, unspecified Single subsegmental pulmonary embolism without acute cor pulmonale (HCC) Vapes nicotine containing substance Marijuana use Cannabis abuse, unspecified Generalized anxiety disorder Depression, unspecified depression type Paroxysmal SVT (supraventricular tachycardia) (HCC) Paroxysmal supraventricular tachycardia Supervision of other high risk pregnancies, second trimester (HCC)- Primary 28 weeks gestation of ([facility]) state, incidental Rh negative state in antepartum period (HCC) Rhesus isoimmunization affecting management of mother, antepartum condition Need for vaccination Need for prophylactic vaccination and inoculation against unspecified single disease Encounter for sterilization Sterilization History of shoulder dystocia in prior Heartburn during , antepartum, third trimester ([facility]) * Assessment & Plan Note - Yamila Ballard MD - 07/27/2024 2:03 PM EDT Associated Problem(s): Rh negative state in antepartum period ([facility]) rh prohylaxis * Assessment & Plan Note [...] Problem(s): Heartburn during , antepartum, third trimester ([facility]) d/c pepcid, trial prevacid [facility] Diagnosis SVT (supraventricular tachycardia) Other specified cardiac dysrhythmias documented in this encounter [facility] Work Phone: Evaluation note* Diagnosis Preoperative examination- Primary Preoperative examination, unspecified Single subsegmental pulmonary embolism without acute cor pulmonale ([facility]) Vapes nicotine containing substance Marijuana use Cannabis abuse, unspecified Generalized anxiety disorder Depression, unspecified depression type Paroxysmal SVT (supraventricular tachycardia) ([facility]) Paroxysmal supraventricular tachycardia Supervision of other high risk pregnancies, second trimester ([facility])- Primary 28 weeks gestation of ([facility]) state, incidental Rh negative state in antepartum period ([facility]) Rhesus isoimmunization affecting management of mother, antepartum condition Need for vaccination Need for prophylactic vaccination and inoculation against unspecified single disease Encounter for sterilization Sterilization History of shoulder dystocia in prior Heartburn during , antepartum, third trimester (HCC) Maternal iron deficiency anemia complicating , third trimester (HCC)- Primary [facility]* Diagnosis Preoperative examination- Primary Preoperative examination, unspecified Single subsegmental pulmonary embolism without acute cor pulmonale ([facility]) Vapes nicotine containing substance Marijuana use Cannabis abuse, unspecified Generalized anxiety disorder Depression, unspecified depression type Paroxysmal SVT (supraventricular tachycardia) (HCC) Paroxysmal supraventricular tachycardia Supervision of other high risk pregnancies, second trimester (HCC)- Primary 28 weeks gestation of ([facility]) state, incidental Rh negative state in antepartum [...] (HCC) Antepartum anemia complicating in third trimester ([facility]) History of shoulder dystocia in prior Paroxysmal SVT (supraventricular tachycardia) (HCC) Paroxysmal supraventricular tachycardia * Assessment & Plan Note - Prabhu Ortez MD - 08/10/2024 11:33 AM EDTAssociated Problem(s): Paroxysmal SVT (supraventricular tachycardia) ([facility]) On metoprolol * Assessment & Plan Note - Prabhu Ortez MD - 08/10/2024 11:32 AM EDTAssociated Problem(s): Thrombocytopenia affecting ([facility]) Repeat CBC in 3 weeks * Assessment & Plan Note - Prabhu Ortez MD - 08/10/2024 11:32 AM EDTAssociated Problem(s): Antepartum anemia complicating in third trimester ([facility]) IV iron scheduled * Assessment & Plan Note - Prabhu Ortez MD - 08/10/2024 11:32 AM EDTAssociated Problem(s): History of shoulder dystocia in prior Plans unless EFW less than prior . [facility] Diagnosis Preoperative examination- Primary Preoperative examination, unspecified Single subsegmental pulmonary embolism without acute cor pulmonale ([facility]) Vapes nicotine containing substance Marijuana use Cannabis abuse, unspecified Generalized anxiety disorder Depression, unspecified depression type Paroxysmal SVT (supraventricular tachycardia) (HCC) Paroxysmal supraventricular tachycardia Supervision of other high risk pregnancies, second trimester (HCC)- Primary 28 weeks gestation of ([facility]) state, incidental Rh negative state in antepartum period (HCC) Rhesus isoimmunization affecting management of mother, antepartum condition Need for vaccination Need for prophylactic vaccination and inoculation against unspecified single disease Encounter for sterilization Sterilization History of shoulder dystocia in prior Heartburn during , antepartum, third trimester ([facility]) Supervision of high risk in third trimester ([facility])- Primary Unspecified high-risk Thrombocytopenia affecting ([facility]) Antepartum anemia complicating in third trimester ([facility]) History of shoulder dystocia in prior Paroxysmal SVT (supraventricular tachycardia) (HCC) Paroxysmal supraventricular tachycardia Maternal iron deficiency anemia complicating , third trimester ([facility])- Primary documented in this [facility]* Diagnosis Preoperative examination- Primary Preoperative examination, unspecified Single subsegmental pulmonary embolism without acute cor pulmonale ([facility]) Vapes nicotine containing substance Marijuana use Cannabis abuse, unspecified Generalized anxiety disorder Depression, unspecified depression type Paroxysmal SVT (supraventricular tachycardia) ([facility]) Paroxysmal supraventricular tachycardia Supervision of other high risk pregnancies, second trimester ([facility])- Primary 28 weeks gestation of ([facility]) state, incidental Rh negative state in antepartum period ([facility]) Rhesus isoimmunization affecting management of mother, antepartum condition Need for vaccination Need for prophylactic vaccination and inoculation against unspecified single disease Encounter for sterilization Sterilization History of shoulder dystocia in prior Heartburn during , antepartum, third trimester ([facility]) Supervision of high risk in third trimester ([facility])- Primary Unspecified high-risk Thrombocytopenia affecting ([facility]) Antepartum anemia complicating in third trimester ([facility]) History of shoulder dystocia in prior Paroxysmal SVT (supraventricular tachycardia) (HCC) Paroxysmal supraventricular tachycardia Maternal iron deficiency anemia complicating , third trimester ([facility])- Primary [facility] Diagnosis Preoperative examination- Primary Preoperative examination, unspecified Single subsegmental pulmonary embolism without acute cor pulmonale ([facility]) Vapes nicotine containing substance Marijuana use Cannabis abuse, unspecified Generalized anxiety disorder Depression, unspecified depression type Paroxysmal SVT (supraventricular tachycardia) (HCC) Paroxysmal supraventricular tachycardia Supervision of other high risk pregnancies, second trimester ([facility])- Primary 28 weeks gestation of ([facility]) state, incidental Rh negative state in antepartum period ([facility]) Rhesus isoimmunization affecting management of mother, antepartum condition Need for vaccination Need for prophylactic vaccination and inoculation against unspecified single disease Encounter for sterilization Sterilization History of shoulder dystocia in prior Heartburn during , antepartum, third trimester ([facility]) Supervision of high risk in third trimester ([facility])- Primary Unspecified high-risk Thrombocytopenia affecting ([facility]) Antepartum anemia complicating in third trimester ([facility]) History of shoulder dystocia in prior Paroxysmal SVT (supraventricular tachycardia) ([facility]) Paroxysmal supraventricular tachycardia Supervision of high risk in third trimester ([facility])- Primary Unspecified high-risk Thrombocytopenia affecting ([facility]) History of shoulder dystocia in prior Antepartum anemia complicating in third trimester ([facility]) Paroxysmal SVT (supraventricular tachycardia) ([facility]) Paroxysmal supraventricular tachycardia 32 weeks gestation of ([facility]) state, incidental * Assessment & Plan Note - Prabhu Ortez MD - 08/24/2024 10:56 AM EDTAssociated Problem(s): Thrombocytopenia affecting ([facility]) Repeat CBC scheduled * Assessment & Plan Note - Prabhu Ortez MD - 08/24/2024 10:56 AM EDTAssociated Problem(s): History of shoulder dystocia in prior Plans * Assessment & Plan Note - Prabhu Ortez MD - 08/24/2024 10:56 AM EDTAssociated Problem(s): Antepartum anemia complicating in third trimester ([facility]) Last IV iron infusion today * Assessment & Plan Note - Prabhu Ortez MD - 08/24/2024 10:56 AM EDTAssociated Problem(s): Paroxysmal SVT (supraventricular tachycardia) (HCC) Continue metoprolol documented in this encounter [facility] note* Diagnosis Preoperative examination- Primary Preoperative examination, unspecified Single subsegmental pulmonary embolism without acute cor pulmonale (HCC) Vapes nicotine containing substance Marijuana use Cannabis abuse, unspecified Generalized anxiety disorder Depression, unspecified depression type Paroxysmal SVT (supraventricular tachycardia) (HCC) Paroxysmal supraventricular tachycardia Supervision of other high risk pregnancies, second trimester ([facility])- Primary 28 weeks gestation of ([facility]) state, incidental Rh negative state in antepartum period ([facility]) Rhesus isoimmunization affecting management of mother, antepartum condition Need for vaccination Need for prophylactic vaccination and inoculation against unspecified single disease Encounter for sterilization Sterilization History of shoulder dystocia in prior Heartburn during , antepartum, third trimester ([facility]) Supervision of high risk in third trimester ([facility])- Primary Unspecified high-risk Thrombocytopenia affecting ([facility]) Antepartum anemia complicating in third trimester ([facility]) History of shoulder dystocia in prior Paroxysmal SVT (supraventricular tachycardia) ([facility]) Paroxysmal supraventricular tachycardia Supervision of high risk in third trimester ([facility])- Primary Unspecified high-risk Thrombocytopenia affecting ([facility]) History of shoulder dystocia in prior Antepartum anemia complicating in third trimester ([facility]) Paroxysmal SVT (supraventricular tachycardia) ([facility]) Paroxysmal supraventricular tachycardia 32 weeks gestation of ([facility]) state, incidental Maternal iron deficiency anemia complicating , third trimester ([facility])- Primary documented in this encounter [facility] note* Diagnosis Preoperative examination- Primary Preoperative examination, unspecified Single subsegmental pulmonary embolism without acute cor pulmonale (HCC) Vapes nicotine containing substance Marijuana use Cannabis abuse, unspecified Generalized anxiety disorder Depression, unspecified depression type Paroxysmal SVT (supraventricular tachycardia) (HCC) Paroxysmal supraventricular tachycardia Supervision of other high risk pregnancies, second trimester ([facility])- Primary 28 weeks gestation of ([facility]) state, incidental Rh negative state in antepartum period ([facility]) Rhesus isoimmunization affecting management of mother, antepartum condition Need for vaccination Need for prophylactic vaccination and inoculation against unspecified single disease Encounter for sterilization Sterilization History of shoulder dystocia in prior Heartburn during , antepartum, third trimester ([facility]) Supervision of high risk in third trimester ([facility])- Primary Unspecified high-risk Thrombocytopenia affecting ([facility]) Antepartum anemia complicating in third trimester ([facility]) History of shoulder dystocia in prior Paroxysmal SVT (supraventricular tachycardia) ([facility]) Paroxysmal supraventricular tachycardia Supervision of high risk in third trimester ([facility])- Primary Unspecified high-risk Thrombocytopenia affecting ([facility]) History of shoulder dystocia in prior Antepartum anemia complicating in third trimester ([facility]) Paroxysmal SVT (supraventricular tachycardia) ([facility]) Paroxysmal supraventricular tachycardia 32 weeks gestation of ([facility]) state, incidental Encounter for ultrasound to check growth ([facility])- Primary Encounter for routine screening for malformation using ultrasonics History of shoulder dystocia in prior 34 weeks gestation of ([facility]) state, incidental [facility] Diagnosis Preoperative examination- Primary Preoperative examination, unspecified Single subsegmental pulmonary embolism without acute cor pulmonale ([facility]) Vapes nicotine containing substance Marijuana use Cannabis abuse, unspecified Generalized anxiety disorder Depression, unspecified depression type Paroxysmal SVT (supraventricular tachycardia) ([facility]) Paroxysmal supraventricular tachycardia Supervision of other high risk pregnancies, second trimester ([facility])- Primary 28 weeks gestation of ([facility]) state, incidental Rh negative state in antepartum period ([facility]) Rhesus isoimmunization affecting management of mother, antepartum condition Need for vaccination Need for prophylactic vaccination and inoculation against unspecified single disease Encounter for sterilization Sterilization History of shoulder dystocia in prior Heartburn during , antepartum, third trimester ([facility]) Supervision of high risk in third trimester ([facility])- Primary Unspecified high-risk Thrombocytopenia affecting ([facility]) Antepartum anemia complicating in third trimester ([facility]) History of shoulder dystocia in prior Paroxysmal SVT (supraventricular tachycardia) ([facility]) Paroxysmal supraventricular tachycardia Supervision of high risk in third trimester ([facility])- Primary Unspecified high-risk Thrombocytopenia affecting ([facility]) History of shoulder dystocia in prior Antepartum anemia complicating in third trimester ([facility]) Paroxysmal SVT (supraventricular tachycardia) ([facility]) Paroxysmal supraventricular tachycardia 32 weeks gestation of ([facility]) state, incidental Supervision of high risk in third trimester ([facility])- Primary Unspecified high-risk 34 weeks gestation of ([facility]) state, incidental History of shoulder dystocia in prior * Assessment & Plan Note - Yamila Ballard MD - 09/08/2024 8:33 AM EDT Associated Problem(s): History of shoulder dystocia in prior plans c/s and tubal Orders: URINE OB DIP B/O [facility] Diagnosis Preoperative examination- Primary Preoperative examination, unspecified Single subsegmental pulmonary embolism without acute cor pulmonale ([facility]) Vapes nicotine containing substance Marijuana use Cannabis abuse, unspecified Generalized anxiety disorder Depression, unspecified depression type Paroxysmal SVT (supraventricular tachycardia) ([facility]) Paroxysmal supraventricular tachycardia Supervision of other high risk pregnancies, second trimester ([facility])- Primary 28 weeks gestation of ([facility]) state, incidental Rh negative state in antepartum period ([facility]) Rhesus isoimmunization affecting management of mother, antepartum condition Need for vaccination Need for prophylactic vaccination and inoculation against unspecified single disease Encounter for sterilization Sterilization History of shoulder dystocia in prior Heartburn during , antepartum, third trimester ([facility]) Supervision of high risk in third trimester ([facility])- Primary Unspecified high-risk Thrombocytopenia affecting ([facility]) Antepartum anemia complicating in third trimester ([facility]) History of shoulder dystocia in prior Paroxysmal SVT (supraventricular tachycardia) ([facility]) Paroxysmal supraventricular tachycardia Supervision of high risk in third trimester ([facility])- Primary Unspecified high-risk Thrombocytopenia affecting ([facility]) History of shoulder dystocia in prior Antepartum anemia complicating in third trimester ([facility]) Paroxysmal SVT (supraventricular tachycardia) ([facility]) Paroxysmal supraventricular tachycardia 32 weeks gestation of ([facility]) state, incidental Supervision of high risk in third trimester ([facility])- Primary Unspecified high-risk 34 weeks gestation of ([facility]) state, incidental History of shoulder dystocia in prior 35 weeks gestation of ([facility])- Primary state, incidental Irregular uterine contractions ([facility]) Other and unspecified uterine inertia, unspecified as to episode of care Supervision of high risk in third trimester ([facility]) Unspecified high-risk documented in this encounter [facility] note* Diagnosis Preoperative examination- Primary Preoperative examination, unspecified Single subsegmental pulmonary embolism without acute cor pulmonale ([facility]) Vapes nicotine containing substance Marijuana use Cannabis abuse, unspecified Generalized anxiety disorder Depression, unspecified depression type Paroxysmal SVT (supraventricular tachycardia) ([facility]) Paroxysmal supraventricular tachycardia Supervision of other high risk pregnancies, second trimester ([facility])- Primary 28 weeks gestation of ([facility]) state, incidental Rh negative state in antepartum period ([facility]) Rhesus isoimmunization affecting management of mother, antepartum condition Need for vaccination Need for prophylactic vaccination and inoculation against unspecified single disease Encounter for sterilization Sterilization History of shoulder dystocia in prior Heartburn during , antepartum, third trimester ([facility]) Supervision of high risk in third trimester ([facility])- Primary Unspecified high-risk Thrombocytopenia affecting ([facility]) Antepartum anemia complicating in third trimester ([facility]) History of shoulder dystocia in prior Paroxysmal SVT (supraventricular tachycardia) ([facility]) Paroxysmal supraventricular tachycardia Supervision of high risk in third trimester ([facility])- Primary Unspecified high-risk Thrombocytopenia affecting ([facility]) History of shoulder dystocia in prior Antepartum anemia complicating in third trimester ([facility]) Paroxysmal SVT (supraventricular tachycardia) ([facility]) Paroxysmal supraventricular tachycardia 32 weeks gestation of ([facility]) state, incidental Supervision of high risk in third trimester ([facility])- Primary Unspecified high-risk 34 weeks gestation of ([facility]) state, incidental History of shoulder dystocia in prior Supervision of high risk in third trimester ([facility])- Primary Unspecified high-risk History of pulmonary embolism Personal history of pulmonary embolism History of shoulder dystocia in prior Abnormality in heart rate or rhythm, antepartum ([facility]) Abnormality in heart rate/rhythm, antepartum condition or complication Antepartum anemia complicating in third trimester ([facility]) Irregular uterine contractions ([facility]) Other and unspecified uterine inertia, unspecified as to episode of care 37 weeks gestation of ([facility]) state, incidental Vaginal discharge during in third trimester ([facility]) documented in this encounter [facility] note* Diagnosis Preoperative examination- Primary Preoperative examination, unspecified Single subsegmental pulmonary embolism without acute cor pulmonale ([facility]) Vapes nicotine containing substance Marijuana use Cannabis abuse, unspecified Generalized anxiety disorder Depression, unspecified depression type Paroxysmal SVT (supraventricular tachycardia) ([facility]) Paroxysmal supraventricular tachycardia Supervision of other high risk pregnancies, second trimester ([facility])- Primary 28 weeks gestation of ([facility]) state, incidental Rh negative state in antepartum period ([facility]) Rhesus isoimmunization affecting management of mother, antepartum condition Need for vaccination Need for prophylactic vaccination and inoculation against unspecified single disease Encounter for sterilization Sterilization History of shoulder dystocia in prior Heartburn during , antepartum, third trimester ([facility]) Supervision of high risk in third trimester ([facility])- Primary Unspecified high-risk Thrombocytopenia affecting ([facility]) Antepartum anemia complicating in third trimester ([facility]) History of shoulder dystocia in prior Paroxysmal SVT (supraventricular tachycardia) ([facility]) Paroxysmal supraventricular tachycardia Supervision of high risk in third trimester ([facility])- Primary Unspecified high-risk Thrombocytopenia affecting ([facility]) History of shoulder dystocia in prior Antepartum anemia complicating in third trimester ([facility]) Paroxysmal SVT (supraventricular tachycardia) ([facility]) Paroxysmal supraventricular tachycardia 32 weeks gestation of ([facility]) state, incidental Supervision of high risk in third trimester ([facility])- Primary Unspecified high-risk 34 weeks gestation of ([facility]) state, incidental History of shoulder dystocia in prior Yeast vaginitis- Primary Candidiasis of vulva and vagina [facility] Diagnosis Preoperative examination- Primary Preoperative examination, unspecified Single subsegmental pulmonary embolism without acute cor pulmonale ([facility]) Vapes nicotine containing substance Marijuana use Cannabis abuse, unspecified Generalized anxiety disorder Depression, unspecified depression type Paroxysmal SVT (supraventricular tachycardia) ([facility]) Paroxysmal supraventricular tachycardia Supervision of other high risk pregnancies, second trimester ([facility])- Primary 28 weeks gestation of ([facility]) state, incidental Rh negative state in antepartum period ([facility]) Rhesus isoimmunization affecting management of mother, antepartum condition Need for vaccination Need for prophylactic vaccination and inoculation against unspecified single disease Encounter for sterilization Sterilization History of shoulder dystocia in prior Heartburn during , antepartum, third trimester ([facility]) Antepartum anemia complicating in third trimester ([facility])- Primary Supervision of high risk in third trimester ([facility])- Primary Unspecified high-risk Thrombocytopenia affecting ([facility]) Antepartum anemia complicating in third trimester ([facility]) History of shoulder dystocia in prior Paroxysmal SVT (supraventricular tachycardia) ([facility]) Paroxysmal supraventricular tachycardia Supervision of high risk in third trimester ([facility])- Primary Unspecified high-risk Thrombocytopenia affecting ([facility]) History of shoulder dystocia in prior Antepartum anemia complicating in third trimester ([facility]) Paroxysmal SVT (supraventricular tachycardia) ([facility]) Paroxysmal supraventricular tachycardia 32 weeks gestation of ([facility]) state, incidental Supervision of high risk in third trimester ([facility])- Primary Unspecified high-risk 34 weeks gestation of ([facility]) state, incidental History of shoulder dystocia in prior [facility] Diagnosis Preoperative examination- Primary Preoperative examination, unspecified Single subsegmental pulmonary embolism without acute cor pulmonale ([facility]) Vapes nicotine containing substance Marijuana use Cannabis abuse, unspecified Generalized anxiety disorder Depression, unspecified depression type Paroxysmal SVT (supraventricular tachycardia) ([facility]) Paroxysmal supraventricular tachycardia Supervision of other high risk pregnancies, second trimester ([facility])- Primary 28 weeks gestation of ([facility]) state, incidental Rh negative state in antepartum period ([facility]) Rhesus isoimmunization affecting management of mother, antepartum condition Need for vaccination Need for prophylactic vaccination and inoculation against unspecified single disease Encounter for sterilization Sterilization History of shoulder dystocia in prior Heartburn during , antepartum, third trimester ([facility]) Supervision of high risk in third trimester ([facility])- Primary Unspecified high-risk Thrombocytopenia affecting ([facility]) Antepartum anemia complicating in third trimester ([facility]) History of shoulder dystocia in prior Paroxysmal SVT (supraventricular tachycardia) ([facility]) Paroxysmal supraventricular tachycardia Supervision of high risk in third trimester ([facility])- Primary Unspecified high-risk Thrombocytopenia affecting ([facility]) History of shoulder dystocia in prior Antepartum anemia complicating in third trimester ([facility]) Paroxysmal SVT (supraventricular tachycardia) ([facility]) Paroxysmal supraventricular tachycardia 32 weeks gestation of ([facility]) state, incidental Supervision of high risk in third trimester ([facility])- Primary Unspecified high-risk 34 weeks gestation of (H[facility]) state, incidental History of shoulder dystocia in prior Supervision of high risk in third trimester (H[facility])- Primary Unspecified high-risk 37 weeks gestation of ([facility]) state, incidental History of pulmonary embolism Personal history of pulmonary embolism History of shoulder dystocia in prior Antepartum anemia complicating in third trimester (HCC) headache in third trimester (HCC) Rh negative state in antepartum period ([facility]) Rhesus isoimmunization affecting management of mother, antepartum condition History of depression Personal history of other mental disorder [facility] Author Yamila Ballard [facility] Note Date/Time September 09, 2024 3:02 pm [facility] Medical Records Department [address] [place] [address] OB Triage Physician Note 09/09/24 1451 MR#: [id number] Acct: [id number] Name: KEAGAN ALICIA Rep #:[id number] : 2000 23 From: Yamila Ballard MD PCP: Rachell Amador NP-C Status:MYLA Welch Location: [id number] HPI - General General Date of Service: [...] Final LUZ: 10/13/24 Gestational age: 35 1/7 [facility] Medical History (Updated 09/09/24 @ 14:58 by [...] 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 09/09/24 1502 <Electronically signed by Yamila linn MD> Date _ Yamila Ballard MD Cosigner Signature (if applicable): Date CC: ARACELY-C Rachell Amador; Dr. Yamila Ballard MD ~ Signed [facility] Work Phone: History and physical note Author Jaquelin Hi [facility] Note Date/Time September 19, 2024 1: 40pm [facility] Medical Records Department [address] [place] [address] OB Triage Physician Note 09/19/24 1330 MR#: [id number] Acct: [id number] Name: KEAGAN ALICIA Rep #:[id number] : 2000 23 From: Jaquelin HARMAN PCP: ZIA Duke Status:REG C LI Y Location: [id number] HPI - General HPI Narrative KEAGAN ALICIA, [...] signed by Jaquelin Hi CNM> Date _ Jaquelin Hi CNM Cosigner Signature (if applicable): Date CC: FRANDY Hi; DIGITAL HARDWARE DESIGN ENGINEER-C Rachell Amador ~ Signed [facility] Work Phone: Hospital Discharge instructions Additional Instructions Avoid fatty foods including animal meats as much as you are able.[facility] Work Phone: Hospital Discharge instructions* Attachments The following attachments cannot be sent through Care Everywhere. * Managing pain after surgery ([place]) [facility]* Attachments The following attachments cannot be sent through Care Everywhere. * Managing acute pain at home ([place]) documented in this [facility] Work Phone: Hospital Discharge instructions* Attachments The following attachments cannot be sent through Care Everywhere. * Pulmonary Embolism (Blood Clot in the Lungs) Discharge Instructions ([place]) documented in this [facility] Work Phone: Hospital Discharge instructions* Attachments The following attachments cannot be sent through Care Everywhere. * Heavy periods (Montenegrin) documented in this [facility] Work Phone: Hospital Discharge instructions* Attachments The following attachments cannot be sent through Care Everywhere. * Low Blood Sugar, Adult ED (Montenegrin) * Nausea and Vomiting, Adult ED ([place]gr[place]) * Urinary tract infections in ([place]grin) documented in this [facility] Work Phone: Hospital Discharge instructions* Attachments The following attachments cannot be sent through Care Everywhere. * Signs of Labor ([facility]) ([place]) * : UTI (Urinary Tract Infection) ([place]) [facility] Additional Instructions Keep next office appointment.[facility] Work Phone: Reason for referral (narrative)* Outpatient Procedure (Routine) - Authorized Specialty Diagnoses / Procedures Referred By Contac t Referred To Contact [facility] Diagnoses Abnormal uterine bleeding (AUB) Encounter for removal of intrauterine contraceptive device Encounter for insertion of intrauterine contraceptive device Procedures INSERT INTRAUTERINE DEVICE LEVONORGESTREL IU 52MG 5 YR INSERT INTRAUTERINE DEVICE REMOVE INTRAUTERINE DEVICE Prabhu Ortez MD [address] [place] [address] [facility] [address] [place] [address] Referral ID Status Reason Start Date Expiration Date Visits Requested Visits Authorized [id number] Authorized Auto-Generat ed Referral 06/26/2023 02/10/2024 2 2 [facility] for referral (narrative)* Diagnostic Procedure Only (Routine) - Authorized Specialty Diagnoses / Procedures Referred By Contac t Referred To Contact [facility] Diagnoses Pelvic pain in female Intrauterine contraceptive device threads lost, initial encounter Irregular bleeding Procedures PELVIC US WHI US PELVIC NONOBSTETRIC REAL-TIME IMAGE COMPLETE Sandra Cole APRN.CNP [address] [place] [address] [facility] [address] [place] [address] Referral ID Status Reason Start Date Expiration Date Visits Requested Visits Authorized [id number] Authorized Auto-Generat ed Referral 08/18/2023 08/17/2024 1 1 [facility] for referral (narrative)* Diagnostic Procedure Only (Routine) - Closed Specialty Diagnoses / Procedures Referred By Contac t Referred To Contact [facility] IMAGING Diagnoses Malpositioned IUD, sequela Pelvic pain in female Procedures XR PELVIS 3V AP/INLET/OUTLET RADIOLOGIC EXAM PELVIS COMPL MINIMUM 3 VIEWS Mary Jo Chance MD [address] [place] [address] [place] [address] Referral ID Status Reason Start Date Expiration Date V isits Requested Visits Authorized [id number] Closed Auto-Generate d Referral 08/20/2023 09/18/2024 1 1 * Outpatient Procedure (Routine) - Authorized Specialty Diagnoses / Procedures Referred By Tone musa Referred To Contact [facility] Diagnoses Encounter for IUD removal Encounter for insertion of intrauterine contraceptive device Procedures REMOVE INTRAUTERINE DEVICE REMOVE INTRAUTERINE DEVICE INSERT INTRAUTERINE DEVICE LEVONORGESTREL IU 52MG 5 YR Mary Jo Chance MD [address] [place] [address] [place] [id number] [place] [id number] Referral ID Status Reason Start Date Expiration Date Visits Requested Visits Authorized [id number] Authorized Auto-Generat ed Referral 08/20/2023 02/10/2024 2 2 [facility] for referral (narrative)No reason for referral information [facility]WAv[facility] Work Phone: Reason for visit Narrative* Diagnostic Procedure Only (Routine) - Closed Specialty Diagnoses / Procedures Referred By Tone musa Referred To Contact [facility] Diagnoses Pelvic pain in female Intrauterine contraceptive device threads lost, initial encounter Irregular bleeding Procedures PELVIC US WHI US PELVIC NONOBSTETRIC REAL-TIME IMAGE COMPLETE Sandra Cole APRN.SEMICONDUCTOR WAFERS TESTER [address] [place] [address] [address] Referral ID Status Reason Start Date Expiration Date V isits Requested Visits Authorized [id number] Closed Auto-Generate d Referral 08/18/2023 08/17/2024 1 1 [facility] for visit Narrative* Diagnostic Procedure Only (Routine) - Closed Specialty Diagnoses / Procedures Referred By Contac t Referred To Contact XR IMAGING Diagnoses Malpositioned IUD, sequela Pelvic pain in female Procedures XR PELVIS 3V AP/INLET/OUTLET RADIOLOGIC EXAM PELVIS COMPL MINIMUM 3 VIEWS Mary Jo Chance MD [address] [place] [address] [place] [address] Referral ID Status Reason Start Date Expiration Date V isits Requested Visits Authorized [id number] Closed Auto-Generate d Referral 08/20/2023 09/18/2024 1 1 [facility] for visit Narrative* Outpatient Procedure (Routine) - Closed Specialty Diagnoses / Procedures [facility] Diagnoses Paroxysmal SVT (supraventricular tachycardia) (HCC) Palpitations Procedures ECHO ECHO TTHRC R-T 2D W/WOM-MODE COMPL SPEC&COLR D Rachell Amador, PIPE STEM SAWYER.SEMICONDUCTOR WAFERS TESTER [address] [place] [address] [facility][Note 3] [facility] [place] [address] [place] [address] Referral ID Status Reason Start Date Expiration Date V isits Requested Visits Authorized [id number] Closed Auto-Generate d Referral 08/20/2023 10/03/2023 1 1 [facility] for visit Narrative* Auth/Cert Specialty Diagnoses / Procedures Referred By Doeac t Referred To Contact Diagnoses SVT (supraventricular tachycardia) (CMS-HCC) SVT (supraventricular tachycardia) (CMS-HCC) [I47.10] Procedures PA COMPRE EP EVAL ABLTJ 3D MAPG TX SVT Ablation SVT (605[address]) Ramiro Hugo MD [address] [facility] [address] [place] [address] [facility] [address] [place] [address] Referral ID Status Reason Start Date Expiration Date Visits Re quested Visits Authorized [id number] 1 1 [facility] Work Phone: [facility] for visit Narrative* [place] Prior Authorization (Routine) - Authorized Specialty Diagnoses / Procedures Referred By Contac t Referred To Contact Diagnoses Maternal iron deficiency anemia complicating , third trimester (HCC) Nayely Gil PA-C [address] [place] [address] Phone: tel: fax: INFUSION [address] [place] [address] Phone: tel: fax: Referral ID Status Reason Start Date Expiration Date V isits Requested Visits Authorized [id number] Authorized 08/06/2024 02/09/2025 1 100 [facility] Summary Purpose Family History Relationship Condition Age at Onset Recorded Date/T vanessa father Drug abuse Unknown Advance Directives Advance Directive Response Recorded Date/ Time Living Will No January 07, 2 021 2:03pm Power of Barrel Waterer No January 07, 2021 2:03pm Documents on File Type Date Recorded 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 Advance Directive(s) 05/15/2021 9:17 AM Advance Directive Response Recorded Date/ Time Living Will No January 07, 2 021 1:03pm Power of Barrel Waterer No January 07, 2021 1:03pm Advance Directive Response Recorded Date/ Time Living Will No August 17, 2022 1 0:35am Power of Barrel Waterer No August 17, 2022 10:35am Advance Directive Response Recorded Date/ Time Living Will No August 29, 2022 3:34pm Power of Barrel Waterer No August 29 3:34pm Date Activated Date [...] June 22, 2023 9 :41am Power of Barrel Waterer No June 22, 2023 9:41am Date Activated Date Inactivated Comments 07/01/2017 10:18 AM Chief Complaint and Reason for Visit Chief Complaint SAB Chief Complaint DETENTION DRUG USE Chief Complaint DETENTION DRUG USE 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 Chief Complaint abd pain Chief [...] Procedures CONSULT TO WOMEN'S BEHAVIORAL HEALTH OFFICE/OUTPATIENT [facility] 60 MINUTES Gino Valero APRN.FRANDY [address] [place] [address] Referral ID Status Reason Start Date Expiration Date Visits Requested Visits Authorized [id number] Authorized PCP Requested Referral 04/23/2023 04/22/2024 1 1 Specialty Diagnoses / Procedures Referred By Contac t Referred To Contact Cardiology Diagnoses Single subsegmental pulmonary embolism without acute cor pulmonale (Multi) Procedures Vascular US Lower Extremity Venous Duplex Bilateral Norbert Herndon MD [address] [place] [address] [address] [place] [address] Referral ID Status Reason Start Date Expiration Date Visits Requested Visits Authorized [id number] Authorized Perform Procedure 06/25/2023 06/24/2024 1 1 Specialty Diagnoses / Procedures Referred By Contac t Referred To Contact Cardiology Diagnoses Palpitations Procedures Holter Or Event Media Senior Recruiter Norbert Herndon MD [address] [place] [address] [address] [place] [address] Referral ID Status Reason Start Date Expiration Date V isits Requested Visits Authorized [id number] Pending Review 06/25/2023 06/24/2024 1 1 Referral ID Status Reason Start Date Expiration Date V isits Requested Visits Authorized [id number] Authorized 06/25/2023 06/24/2024 1 1 Specialty Diagnoses / Procedures Referred By Contac t Referred To Contact Cardiology / [facility] Diagnoses Paroxysmal SVT (supraventricular tachycardia) (HCC) Palpitations Procedures CONSULT TO CARDIOLOGY OFFICE/OUTPATIENT [facility] 60 MINUTES Rachell Amador APRN.SEMICONDUCTOR WAFERS TESTER [address] [place] [address] Jonathan Dutta, [address] [place] [address] Referral ID Status Reason Start Date Expiration Date Visits Requested Visits Authorized [id number] Authorized PCP Requested Referral 07/31/2023 07/30/2024 1 1 Specialty Diagnoses / Procedures Referred By Contac t Ref[facility] Diagnoses Paroxysmal SVT (supraventricular tachycardia) (HCC) Palpitations Procedures ECHO ECHO TTHRC R-T 2D W/WOM-MODE COMPL SPEC&COLR D Rachell Amador APRN.SEMICONDUCTOR WAFERS TESTER [address] [place] [address] [facility] [place] [address] [place] [address] Referral ID Status Reason Start Date Expiration Date Visits Requested Visits Authorized [id number] Additional Clinical Info Needed Auto-Generat ed Referral 07/31/2023 07/30/2024 1 1 Specialty Diagnoses / Procedures Referred By Contac t Referred To Contact [facility] Diagnoses Paroxysmal SVT (supraventricular tachycardia) (HCC) Procedures CONSULT TO ELECTROPHYSIOLOGY OFFICE/OUTPATIENT [facility] 60 MINUTES Rachell Amador APRN.SEMICONDUCTOR WAFERS TESTER [address] [place] [address] [address] Referral ID Status Reason Start Date Expiration Date Visits Requested Visits Authorized [id number] Authorized PCP Requested Referral 07/31/2023 07/30/2024 1 1 Specialty Diagnoses / Procedures Referred By Contac t Referred To Contact General Surgery Diagnoses Functional diarrhea Procedures CONSULT TO GENERAL SURGERY OFFICE/OUTPATIENT [facility] 60 MINUTES Mary Jo Chance MD [address] [place] [address] Referral ID Status Reason Start Date Expiration Date Visits Requested Visits Authorized [id number] Authorized PCP Requested Referral 09/23/2023 2024 1 1 Specialty Diagnoses / Procedures Referred By Contac t Referred To Contact Gastroenterology Diagnoses Functional diarrhea Procedures CONSULT TO GASTROENTEROLOGY OFFICE/OUTPATIENT [facility] 60 MINUTES Mary Jo Chance MD [address] [place] [address] Referral ID Status Reason Start Date Expiration Date Visits Requested Visits Authorized [id number] Authorized PCP Requested Referral 09/23/2023 2024 1 1 Specialty Diagnoses / Procedures Referred By Contac t Referred To Contact Gastroenterology Diagnoses Functional diarrhea Status post laparoscopic cholecystectomy Procedures CONSULT TO GASTROENTEROLOGY OFFICE/OUTPATIENT [facility] 60 MINUTES Conor Duarte MD [address] [place] [address] Referral ID Status Reason Start Date Expiration Date Visits Requested Visits Authorized [id number] Authorized PCP Requested Referral 09/29/2023 09/28/2024 1 1 Specialty Diagnoses / Procedures Referred By Contac t Referred To Contact Diagnoses Pulmonary embolism (Multi) SVT (supraventricular tachycardia) ([facility]) Palpitations Procedures ECG 12 lead (Clinic Performed) Ramiro Hugo MD [address] [facility] [address], [address] [address] Referral ID Status Reason Start Date Expiration Date V isits Requested Visits Authorized [id number] Authorized 08/21/2023 08/20/2024 1 1 Specialty Diagnoses / Procedures Referred By Contac t Referred To Contact Hematology Diagnoses History of pulmonary embolism Supervision of other high risk pregnancies, first trimester Procedures CONSULT TO HEMATOLOGY OFFICE/OUTPATIENT [facility] 60 MINUTES Jaquelin Hi APRN.CNM [address] [place] [address] Referral ID Status Reason Start Date Expiration Date Visits Requested Visits Authorized [id number] Authorized PCP Requested Referral 03/10/2024 03/10/2025 1 1 Specialty Diagnoses / Procedures Referred By Contac t Referred To Contact [facility] Diagnoses with uncertain dates, antepartum Procedures OBSTETRIC ULTRASOUND WHI US PREG UTERUS AFTER 1ST TRIMEST GESTATION Jaquelin Hi APRN.CNLilly [address] [place] [address] [facility] [address] [place] [address] Referral ID Status Reason Start Date Expiration Date Visits Requested Visits Authorized [id number] Authorized Auto-Generat ed Referral 03/09/2024 03/09/2025 1 1 Referral ID Status Reason Start Date Expiration Date Visits Requested Visits Authorized [id number] Authorized Auto-Generat ed Referral 03/09/2024 03/09/2025 1 1 Specialty Diagnoses / Procedures Referred By Contac t Referred To Contact Jaquelin Hi APRN.CNM [address] [place] [address] Referral ID Status Reason Start Date Expiration Date V isits Requested Visits Authorized [id number] Pending Review 1 1 Health Concerns Problem Noted Date Diagnosed Date [facility] CC Education - COMMON 10/10/2022 Problem Noted Date Diagnosed Date [facility] Education - COMMON 10/10/2022 [facility] Education - COMMON 10/23/2022 [place] 10/23/2022 Problem Noted Date Diagnosed Date [facility] Education - COMMON 10/10/2022 [facility] Education - COMMON 10/23/2022 [place] - [place] 10/23/2022 Problem Noted Date Diagnosed Date [facility] CC Education - COMMON 10/10/2022 [facility] Education - COMMON 10/23/2022 Education - [place] 10/23/2022 Problem Noted Date Diagnosed Date [facility] CC Education - COMMON 10/10/2022 [facility] Education - COMMON 10/23/2022 Education - [place] 10/23/2022 Problem Noted Date Diagnosed Date [facility] CC Education - COMMON 10/10/2022 [facility] Education - COMMON 10/23/2022 [place] - [place] 10/23/2022 Problem Noted Date Diagnosed Date [facility] Education - COMMON 10/10/2022 [facility] Education - COMMON 10/23/2022 [place] - [place] 10/23/2022 Additional Source Comments INFORMATION SOURCE (unrecogn ized section and content) DATE CREATED AUTHOR 08/05/2017 [facility] DATE CREATED AUTHOR AUTHOR'S ORGANIZ ATION 08/07/2017 [facility] DATE CREATED AUTHOR AUTHOR'S ORGANIZ ATION 07/21/2019 [facility] DATE CREATED AUTHOR AUTHOR'S ORGANIZ ATION 07/21/2022 [facility] DATE CREATED AUTHOR AUTHOR'S ORGANIZ ATION 08/23/2022 [facility] DATE CREATED AUTHOR AUTHOR'S ORGANIZ ATION 07/15/2023 [facility] DATE CREATED AUTHOR AUTHOR'S ORGANIZ ATION 09/16/2023 [facility] DATE CREATED AUTHOR AUTHOR'S ORGANIZ ATION 10/08/2023 [facility] DATE CREATED AUTHOR AUTHOR'S ORGANIZ ATION 01/30/2024 [facility] DATE CREATED AUTHOR AUTHOR'S ORGANIZ ATION 02/05/2024 [facility] DATE CREATED AUTHOR AUTHOR'S ORGANIZ ATION 02/24/2024 [facility] DATE CREATED AUTHOR AUTHOR'S ORGANIZ ATION 08/04/2024 [facility] DATE CREATED AUTHOR AUTHOR'S ORGANIZ ATION 09/05/2024 [facility] DATE CREATED AUTHOR AUTHOR'S ORGANIZ ATION 09/13/2024 [facility] DATE CREATED AUTHOR AUTHOR'S ORGANIZ ATION 09/16/2024 [facility] DATE CREATED AUTHOR AUTHOR'S ORGANIZ ATION 09/29/2024 [facility] DATE CREATED AUTHOR AUTHOR'S ORGANIZ ATION 10/05/2024 [facility] <item><item> Privacy Markings (unrecogniz ed section [...] or prosecute any alcohol or drug abuse patient.[facility] AdministrationIn the event this information is protected by the Federal Confidentiality of Alcohol and Drug Abuse Patient Records regulations: The Federal rules restrict any use of the information to criminally investigate or prosecute any alcohol or drug abuse patient.[facility] AdministrationIn the event this information is protected by the Federal Confidentiality of Alcohol and Drug Abuse Patient Records regulations: The Federal rules restrict any use of the information to criminally investigate or prosecute any alcohol or drug abuse patient.[facility] AdministrationIn the event this information is protected by the Federal Confidentiality of Alcohol and Drug Abuse Patient Records regulations: The Federal rules restrict any use of the information to criminally investigate or prosecute any alcohol or drug abuse patient.[facility] AdministrationIn the event this information is protected by the Federal Confidentiality of Alcohol and Drug Abuse Patient Records regulations: The Federal rules restrict any use of the information to criminally investigate or prosecute any alcohol or drug abuse patient.[facility] AdministrationIn the event this information is protected by the Federal Confidentiality of Alcohol and Drug Abuse Patient Records regulations: The Federal rules restrict any use of the information to criminally investigate or prosecute any alcohol or drug abuse patient.[facility] AdministrationIn the event this information is protected by the Federal Confidentiality of Alcohol and Drug Abuse Patient Records regulations: The Federal rules restrict any use of the information to criminally investigate or prosecute any alcohol or drug abuse patient.[facility] AdministrationIn the event this information is protected by the Federal Confidentiality of Alcohol and Drug Abuse Patient Records regulations: The Federal rules restrict any use of the information to criminally investigate or prosecute any alcohol or drug abuse patient.[facility] AdministrationIn the event this information is protected by the Federal Confidentiality of Alcohol and Drug Abuse Patient Records regulations: The Federal rules restrict any use of the information to criminally investigate or prosecute any alcohol or drug abuse patient.[facility] AdministrationIn the event this information is protected by the Federal Confidentiality of Alcohol and Drug Abuse Patient Records regulations: The Federal rules restrict any use of the information to criminally investigate or prosecute any alcohol or drug abuse patient.[facility] AdministrationIn the event this information is protected by the Federal Confidentiality of Alcohol and Drug Abuse Patient Records regulations: The Federal rules restrict any use of the information to criminally investigate or prosecute any alcohol or drug abuse patient.[facility] AdministrationIn the event this information is protected by [...] or prosecute any alcohol or drug abuse patient.[facility] AdministrationIn the event this information is protected by the Federal Confidentiality of Alcohol and Drug Abuse Patient Records regulations: The Federal rules restrict any use of the information to criminally investigate or prosecute any alcohol or drug abuse patient.[facility] AdministrationIn the event this information is protected by the Federal Confidentiality of Alcohol and Drug Abuse Patient Records regulations: The Federal rules restrict any use of the information to criminally investigate or prosecute any alcohol or drug abuse patient.[facility] AdministrationIn the event this information is protected by the Federal Confidentiality of Alcohol and Drug Abuse Patient Records regulations: The Federal rules restrict any use of the information to criminally investigate or prosecute any alcohol or drug abuse patient.[facility] AdministrationIn the event this information is protected by the Federal Confidentiality of Alcohol and Drug Abuse Patient Records regulations: The Federal rules restrict any use of the information to criminally investigate or prosecute any alcohol or drug abuse patient.[facility] AdministrationIn the event this information is protected by the Federal Confidentiality of Alcohol and Drug Abuse Patient Records regulations: The Federal rules restrict any use of the information to criminally investigate or prosecute any alcohol or drug abuse patient.[facility] AdministrationIn the event this information is protected by the Federal Confidentiality of Alcohol and Drug Abuse Patient Records regulations: The Federal rules restrict any use of the information to criminally investigate or prosecute any alcohol or drug abuse patient.[facility] AdministrationIn the event this information is protected by the Federal Confidentiality of Alcohol and Drug Abuse Patient Records regulations: The Federal rules restrict any use of the information to criminally investigate or prosecute any alcohol or drug abuse patient.[facility] AdministrationIn the event this information is protected by the Federal Confidentiality of Alcohol and Drug Abuse Patient Records regulations: The Federal rules restrict any use of the information to criminally investigate or prosecute any alcohol or drug abuse patient.[facility] AdministrationIn the event this information is protected by the Federal Confidentiality of Alcohol and Drug Abuse Patient Records regulations: The Federal rules restrict any use of the information to criminally investigate or prosecute any alcohol or drug abuse patient.[facility] AdministrationIn the event this information is protected by the Federal Confidentiality of Alcohol and Drug Abuse Patient Records regulations: The Federal rules restrict any use of the information to criminally investigate or prosecute any alcohol or drug abuse patient.[facility] AdministrationIn the event this information is protected by the Federal Confidentiality of Alcohol and Drug Abuse Patient Records regulations: The Federal rules restrict any use of the information to criminally investigate or prosecute any alcohol or drug abuse patient.[facility] AdministrationIn the event this information is protected by the Federal Confidentiality of Alcohol and Drug Abuse Patient Records regulations: The Federal rules restrict any use of the information to criminally investigate or prosecute any alcohol or drug abuse patient.[facility] AdministrationIn the event this information is protected by the Federal Confidentiality of Alcohol and Drug Abuse Patient Records regulations: The Federal rules restrict any use of the information to criminally investigate or prosecute any alcohol or drug abuse patient.[facility] AdministrationIn the event this information is protected by the Federal Confidentiality of Alcohol and Drug Abuse Patient Records regulations: The Federal rules restrict any use of the information to criminally investigate or prosecute any alcohol or drug abuse patient.[facility] AdministrationIn the event this information is protected by the Federal Confidentiality of Alcohol and Drug Abuse Patient Records regulations: The Federal rules restrict any use of the information to criminally investigate or prosecute any alcohol or drug abuse patient.[facility] Health AdministrationIn the event this information is protected by the Federal Confidentiality of Alcohol and Drug Abuse Patient Records regulations: The Federal rules restrict any use of the information to criminally investigate or prosecute any alcohol or drug abuse patient.[facility] AdministrationIn the event this information is protected by the Federal Confidentiality of Alcohol and Drug Abuse Patient Records regulations: The Federal rules restrict any use of the information to criminally investigate or prosecute any alcohol or drug abuse patient.[facility] AdministrationIn the event this information is protected by the Federal Confidentiality of Alcohol and Drug Abuse Patient Records regulations: The Federal rules restrict any use of the information to criminally investigate or prosecute any alcohol or drug abuse patient.[facility] AdministrationIn the event this information is protected by the Federal Confidentiality of Alcohol and Drug Abuse Patient Records regulations: The Federal rules restrict any use of the information to criminally investigate or prosecute any alcohol or drug abuse patient.[facility] AdministrationIn the event this information is protected by the Federal Confidentiality of Alcohol and Drug Abuse Patient Records regulations: The Federal rules restrict any use of the information to criminally investigate or prosecute any alcohol or drug abuse patient.[facility] AdministrationIn the event this information is protected by the Federal Confidentiality of Alcohol and Drug Abuse Patient Records regulations: The Federal rules restrict any use of the information to criminally investigate or prosecute any alcohol or drug abuse patient.[facility] AdministrationIn the event this information is protected by the Federal Confidentiality of Alcohol and Drug Abuse Patient Records regulations: The Federal rules restrict any use of the information to criminally investigate or prosecute any alcohol or drug abuse patient.[facility] AdministrationIn the event this information is protected by the Federal Confidentiality of Alcohol and Drug Abuse Patient Records regulations: The Federal rules restrict any use of the information to criminally investigate or prosecute any alcohol or drug abuse patient.[facility] AdministrationIn the event this information is protected by the Federal Confidentiality of Alcohol and Drug Abuse Patient Records regulations: The Federal rules restrict any use of the information to criminally investigate or prosecute any alcohol or drug abuse patient.[facility] AdministrationIn the event this information is protected by the Federal Confidentiality of Alcohol and Drug Abuse Patient Records regulations: The Federal rules restrict any use of the information to criminally investigate or prosecute any alcohol or drug abuse patient.[facility] AdministrationIn the event this information is protected by the Federal Confidentiality of Alcohol and Drug Abuse Patient Records regulations: The Federal rules restrict any use of the information to criminally investigate or prosecute any alcohol or drug abuse patient.[facility] AdministrationIn the event this information is protected by the Federal Confidentiality of Alcohol and Drug Abuse Patient Records regulations: The Federal rules restrict any use of the information to criminally investigate or prosecute any alcohol or drug abuse patient.[facility] AdministrationIn the event this information is protected by the Federal Confidentiality of Alcohol and Drug Abuse Patient Records regulations: The Federal rules restrict any use of the information to criminally investigate or prosecute any alcohol or drug abuse patient.[facility] AdministrationIn the event this information is protected by the Federal Confidentiality of Alcohol and Drug Abuse Patient Records regulations: The Federal rules restrict any use of the information to criminally investigate or prosecute any alcohol or drug abuse patient.[facility] AdministrationIn the event this information is protected by the Federal Confidentiality of Alcohol and Drug Abuse Patient Records regulations: The Federal rules restrict any use of the information to criminally investigate or prosecute any alcohol or drug abuse patient.[facility] AdministrationIn the event this information is protected by the Federal Confidentiality of Alcohol and Drug Abuse Patient Records regulations: The Federal rules restrict any use of the information to criminally investigate or prosecute any alcohol or drug abuse patient.[facility] AdministrationIn the event this information is protected by the Federal Confidentiality of Alcohol and Drug Abuse Patient Records regulations: The Federal rules restrict any use of the information to criminally investigate or prosecute any alcohol or drug abuse patient.[facility] AdministrationIn the event this information is protected by the Federal Confidentiality of Alcohol and Drug Abuse Patient Records regulations: The Federal rules restrict any use of the information to criminally investigate or prosecute any alcohol or drug abuse patient.[facility] AdministrationIn the event this information is protected by the Federal Confidentiality of Alcohol and Drug Abuse Patient Records regulations: The Federal rules restrict any use of the information to criminally investigate or prosecute any alcohol or drug abuse patient.[facility] AdministrationIn the event this information is protected by the Federal Confidentiality of Alcohol and Drug Abuse Patient Records regulations: The Federal rules restrict any use of the information to criminally investigate or prosecute any alcohol or drug abuse patient.[facility] AdministrationIn the event this information is protected by the Federal Confidentiality of Alcohol and Drug Abuse Patient Records regulations: The Federal rules restrict any use of the information to criminally investigate or prosecute any alcohol or drug abuse patient.[facility] AdministrationIn the event this information is protected by the Federal Confidentiality of Alcohol and Drug Abuse Patient Records regulations: The Federal rules restrict any use of the information to criminally investigate or prosecute any alcohol or drug abuse patient.[facility] AdministrationIn the event this information is protected by the Federal Confidentiality of Alcohol and Drug Abuse Patient Records regulations: The Federal rules restrict any use of the information to criminally investigate or prosecute any alcohol or drug abuse patient.[facility] AdministrationIn the event this information is protected by the Federal Confidentiality of Alcohol and Drug Abuse Patient Records regulations: The Federal rules restrict any use of the information to criminally investigate or prosecute any alcohol or drug abuse patient.[facility] AdministrationIn the event this information is protected by the Federal Confidentiality of Alcohol and Drug Abuse Patient Records regulations: The Federal rules restrict any use of the information to criminally investigate or prosecute any alcohol or drug abuse patient.[facility] AdministrationIn the event this information is protected by the Federal Confidentiality of Alcohol and Drug Abuse Patient Records regulations: The Federal rules restrict any use of the information to criminally investigate or prosecute any alcohol or drug abuse patient.[facility] AdministrationIn the event this information is protected by the Federal Confidentiality of Alcohol and Drug Abuse Patient Records regulations: The Federal rules restrict any use of the information to criminally investigate or prosecute any alcohol or drug abuse patient.[facility] AdministrationIn the event this information is protected by the Federal Confidentiality of Alcohol and Drug Abuse Patient Records regulations: The Federal rules restrict any use of the information to criminally investigate or prosecute any alcohol or drug abuse patient.[facility] AdministrationIn the event this information is protected by the Federal Confidentiality of Alcohol and Drug Abuse Patient Records regulations: The Federal rules restrict any use of the information to criminally investigate or prosecute any alcohol or drug abuse patient.[facility] AdministrationIn the event this information is protected by the Federal Confidentiality of Alcohol and Drug Abuse Patient Records regulations: The Federal rules restrict any use of the information to criminally investigate or prosecute any alcohol or drug abuse patient.[facility] AdministrationIn the event this information is protected by the Federal Confidentiality of Alcohol and Drug Abuse Patient Records regulations: The Federal rules restrict any use of the information to criminally investigate or prosecute any alcohol or drug abuse patient.[facility] AdministrationIn the event this information is protected by the Federal Confidentiality of Alcohol and Drug Abuse Patient Records regulations: The Federal rules restrict any use of the information to criminally investigate or prosecute any alcohol or drug abuse patient.[facility] AdministrationIn the event this information is protected by the Federal Confidentiality of Alcohol and Drug Abuse Patient Records regulations: The Federal rules restrict any use of the information to criminally investigate or prosecute any alcohol or drug abuse patient.[facility] AdministrationIn the event this information is protected by [...] or prosecute any alcohol or drug abuse patient.[facility] AdministrationIn the event this information is protected by the Federal Confidentiality of Alcohol and Drug Abuse Patient Records regulations: The Federal rules restrict any use of the information to criminally investigate or prosecute any alcohol or drug abuse patient.[facility] AdministrationIn the event this information is protected by the Federal Confidentiality of Alcohol and Drug Abuse Patient Records regulations: The Federal rules restrict any use of the information to criminally investigate or prosecute any alcohol or drug abuse patient.[facility] AdministrationIn the event this information is protected by the Federal Confidentiality of Alcohol and Drug Abuse Patient Records regulations: The Federal rules restrict any use of the information to criminally investigate or prosecute any alcohol or drug abuse patient.[facility] AdministrationIn the event this information is protected by the Federal Confidentiality of Alcohol and Drug Abuse Patient Records regulations: The Federal rules restrict any use of the information to criminally investigate or prosecute any alcohol or drug abuse patient.[facility] AdministrationIn the event this information is protected by the Federal Confidentiality of Alcohol and Drug Abuse Patient Records regulations: The Federal rules restrict any use of the information to criminally investigate or prosecute any alcohol or drug abuse patient.[facility] AdministrationIn the event this information is protected by the Federal Confidentiality of Alcohol and Drug Abuse Patient Records regulations: The Federal rules restrict any use of the information to criminally investigate or prosecute any alcohol or drug abuse patient.[facility] AdministrationIn the event this information is protected by the Federal Confidentiality of Alcohol and Drug Abuse Patient Records regulations: The Federal rules restrict any use of the information to criminally investigate or prosecute any alcohol or drug abuse patient.[facility] AdministrationIn the event this information is protected by the Federal Confidentiality of Alcohol and Drug Abuse Patient Records regulations: The Federal rules restrict any use of the information to criminally investigate or prosecute any alcohol or drug abuse patient.[facility] AdministrationIn the event this information is protected by the Federal Confidentiality of Alcohol and Drug Abuse Patient Records regulations: The Federal rules restrict any use of the information to criminally investigate or prosecute any alcohol or drug abuse patient.[facility] AdministrationIn the event this information is protected by the Federal Confidentiality of Alcohol and Drug Abuse Patient Records regulations: The Federal rules restrict any use of the information to criminally investigate or prosecute any alcohol or drug abuse patient.[facility] AdministrationIn the event this information is protected by the Federal Confidentiality of Alcohol and Drug Abuse Patient Records regulations: The Federal rules restrict any use of the information to criminally investigate or prosecute any alcohol or drug abuse patient.[facility] AdministrationIn the event this information is protected by the Federal Confidentiality of Alcohol and Drug Abuse Patient Records regulations: The Federal rules restrict any use of the information to criminally investigate or prosecute any alcohol or drug abuse patient.[facility] AdministrationIn the event this information is protected by the Federal Confidentiality of Alcohol and Drug Abuse Patient Records regulations: The Federal rules restrict any use of the information to criminally investigate or prosecute any alcohol or drug abuse patient.[facility] AdministrationIn the event this information is protected by the Federal Confidentiality of Alcohol and Drug Abuse Patient Records regulations: The Federal rules restrict any use of the information to criminally investigate or prosecute any alcohol or drug abuse patient.[facility] AdministrationIn the event this information is protected by the Federal Confidentiality of Alcohol and Drug Abuse Patient Records regulations: The Federal rules restrict any use of the information to criminally investigate or prosecute any alcohol or drug abuse patient.[facility] AdministrationIn the event this information is protected by the Federal Confidentiality of Alcohol and Drug Abuse Patient Records regulations: The Federal rules restrict any use of the information to criminally investigate or prosecute any alcohol or drug abuse patient.[facility] AdministrationIn the event this information is protected by the Federal Confidentiality of Alcohol and Drug Abuse Patient Records regulations: The Federal rules restrict any use of the information to criminally investigate or prosecute any alcohol or drug abuse patient.[facility] AdministrationIn the event this information is protected by the Federal Confidentiality of Alcohol and Drug Abuse Patient Records regulations: The Federal rules restrict any use of the information to criminally investigate or prosecute any alcohol or drug abuse patient.[facility] AdministrationIn the event this information is protected by the Federal Confidentiality of Alcohol and Drug Abuse Patient Records regulations: The Federal rules restrict any use of the information to criminally investigate or prosecute any alcohol or drug abuse patient.[facility] AdministrationIn the event this information is protected by the Federal Confidentiality of Alcohol and Drug Abuse Patient Records regulations: The Federal rules restrict any use of the information to criminally investigate or prosecute any alcohol or drug abuse patient.[facility] AdministrationIn the event this information is protected by the Federal Confidentiality of Alcohol and Drug Abuse Patient Records regulations: The Federal rules restrict any use of the information to criminally investigate or prosecute any alcohol or drug abuse patient.[facility] AdministrationIn the event this information is protected by the Federal Confidentiality of Alcohol and Drug Abuse Patient Records regulations: The Federal rules restrict any use of the information to criminally investigate or prosecute any alcohol or drug abuse patient.[facility] AdministrationIn the event this information is protected by the Federal Confidentiality of Alcohol and Drug Abuse Patient Records regulations: The Federal rules restrict any use of the information to criminally investigate or prosecute any alcohol or drug abuse patient.[facility] Reason for Visit (unrecogniz ed section and [...] Procedures CONSULT TO WOMEN'S BEHAVIORAL HEALTH OFFICE/OUTPATIENT [facility] 60 MINUTES Gino Valero APRN.FRANDY [address] [place] [address] Referral ID Status Reason Start Date Expiration Date V isits Requested Visits Authorized [id number] Closed PCP Requested Referral 04/23/2023 04/22/2024 1 1 Reason Comments Establish Care low back pain Wrecked her dirt charlene e on May 14 she went to the ER in [place] on 05/19/23 Location: tailbone Pain scale: 7Description: sharp painTreatment: heat, tylenol, motrin, and muscle relaxor Reason Comments Med Change Request Reason Comments Anxiety Depression Follow Up Specialty Diagnoses / Procedures Referred By Tone musa Referred To Contact Diagnoses Symptomatic cholelithiasis Symptomatic cholelithiasis [K80.20] Procedures PA LAPAROSCOPY SURG CHOLECYSTECTOMY Laparoscopic cholecystectomy, possible open Alla Llanes MD [address] [facility] [place], [address] [place] [address] [facility] Or [address] [place] [id number] Referral ID Status Reason Start Date Expiration Date Visits Re quested Visits Authorized [id number] 1 1 Reason Comments Nausea Amb to [...] no coded services entered Bora Do MD [address] [place] [address] [phone] Referral ID Status Reason Start Date Expiration Date Visits Re quested Visits Authorized [id number] 1 1 Reason Comments Shortness of Breath [...] To Contact Cardiology Saturnino Velázquez DO [address] [place] [address] Department [place] [address] FernandesNorbert Mallory MD [address] [facility], [address] [place] [address] Referral ID Status Reason Start Date Expiration Date Visits Requested Visits Authorized [id number] Authorized Specialty Services Required 06/21/2023 06/20/2024 1 1 Reason Onset Date Comments Follow Up Was at [facility] and A [facility] ED Insertion Of IUD 06/26/2023 Specialty Diagnoses / Procedures Referred By Contac t Referred To Contact [facility] Diagnoses Abnormal uterine bleeding (AUB) Encounter for removal of intrauterine contraceptive device Encounter for insertion of intrauterine contraceptive device Procedures INSERT INTRAUTERINE DEVICE LEVONORGESTREL IU 52MG 5 YR INSERT INTRAUTERINE DEVICE REMOVE INTRAUTERINE DEVICE Prabhu Ortez MD [address] [place] [address] [facility] [address] [place] [address] Referral ID Status Reason Start Date Expiration Date Visits Requested Visits Authorized [id number] Authorized Auto-Generat ed Referral 06/26/2023 02/10/2024 2 2 Reason Comments ER F/U Gallbladder removed. Has blood clot in lung now Reason Comments Pulmonary Embolism Specialty Diagnoses / Procedures Referred By Contac t Referred To Contact Hematology and Oncology Saturnino Velázquez, DO [address] [place] [address] Department [place] [address] Miki Jaramillo MD [address] [facility] [address] [place] [address] Referral ID Status Reason Start Date Expiration Date Visits Requested Visits Authorized [id number] Authorized Specialty Services Required 06/21/2023 06/20/2024 1 1 Specialty Diagnoses / Procedures Referred By Contac t Referred To Contact Cardiology Diagnoses Single subsegmental pulmonary embolism without acute cor pulmonale (Multi) Procedures Vascular US Lower Extremity [place] [address] [facility] [address] [place] [address] Referral ID Status Reason Start Date Expiration Date Visits Requested Visits Authorized [id number] Authorized Perform Procedure 06/25/2023 06/24/2024 1 1 Specialty Diagnoses / Procedures Referred By Tone musa Referred To Contact Cardiology Diagnoses Palpitations Procedures Holter [employer] [place] [address] [facility] [address], [place] [id number] Referral ID Status Reason Start Date Expiration Date V isits Requested Visits Authorized [id number] Authorized 06/25/2023 06/24/2024 1 1 Reason Comments [...] Referred By Tone musa Referred To Contact [facility] Diagnoses Encounter for IUD removal Encounter for insertion of intrauterine contraceptive device Procedures REMOVE INTRAUTERINE DEVICE REMOVE INTRAUTERINE DEVICE INSERT INTRAUTERINE DEVICE LEVONORGESTREL IU 52MG 5 YR Mary Jo Chance MD [address] [place] [address] [facility] [address] [place] [address] Referral ID Status Reason Start Date Expiration Date Visits Requested Visits Authorized [id number] Authorized Auto-Generat ed Referral 08/20/2023 02/10/2024 2 [...] diarrhea Procedures CONSULT TO GENERAL SURGERY OFFICE/OUTPATIENT [facility] 60 MINUTES Mary Jo Chance MD [address] [place] [address] Referral ID Status Reason Start Date Expiration Date V isits Requested Visits Authorized [id number] Closed PCP Requested Referral 09/23/2023 2024 1 1 Reason Comments Diarrhea Specialty Diagnoses / Procedures Referred By Contac t Referred To Contact Gastroenterology Diagnoses Functional diarrhea Status post laparoscopic cholecystectomy Procedures CONSULT TO GASTROENTEROLOGY OFFICE/OUTPATIENT [facility] 60 MINUTES Conor Duarte MD [address] [place] [address] Referral ID Status Reason Start Date Expiration Date V isits Requested Visits Authorized [id number] Closed PCP Requested Referral 09/29/2023 09/28/2024 1 1 Reason Comments Problem Visit Reason Comments 3 month f/u Reason Comments Wellness Reason Comments Establish Care Palpitations Specialty Diagnoses / Procedures Referred By Contac t Referred To Contact Diagnoses Pulmonary embolism (Multi) SVT (supraventricular tachycardia) ([facility]) Palpitations Procedures ECG 12 lead (Clinic Performed) Ramiro Hugo MD [address], [address] [place] [id number] Referral ID Status Reason Start Date Expiration Date V isits Requested Visits Authorized [id number] Authorized 08/21/2023 08/20/2024 1 1 Reason Comments Follow-up Ablation Specialty Diagnoses / Procedures Referred By Contac t Referred To Contact Diagnoses Atrial fibrillation, unspecified type (Multi) Procedures ECG 12 lead (Clinic Performed) Ramiro Hugo MD [address], [address] [place] [id number] Phone: tel: fax: Referral ID Status Reason Start Date Expiration Date V isits Requested Visits Authorized [id number] Authorized 01/27/2024 01/26/2025 1 1 Reason Comments Abdominal Pain Upper abd pain with n/v/d x 3 days I feel dehydrated Reason Onset Date Comments ER F/U 02/18/2024 [facility] 02/18/2024 Reason Comments Initial OB Visit Reason Comments [facility] [employer] - Other PRAF Reason Comments US Specialty Diagnoses / Procedures Referred By Contac t Referred To Contact [facility] Diagnoses with uncertain dates, antepartum Procedures OBSTETRIC ULTRASOUND WHI US PREG UTERUS AFTER 1ST TRIMEST GESTATION Jaquelin Hi APRN.CNLilly [address] [place] [address] Phone: tel: fax: [address] [phone] Referral ID Status Reason Start Date Expiration Date V isits Requested Visits Authorized [id number] Closed Auto-Generate d Referral 03/09/2024 03/09/2025 1 1 Reason Onset Date Comments Care 04/07/2024 Reason Onset Date Comments Care 05/04/2024 Reason Comments Breast Pump RX Specialty Diagnoses / Procedures Referred By Contac t Referred To Contact [facility] Diagnoses with uncertain dates, antepartum (HCC) Procedures OBSTETRIC ULTRASOUND WHI US PREG UTERUS AFTER 1ST TRIMEST GESTATION Jaquelin Hi APRN.CN [address] [place] [address] Phone: tel: fax: [address] [address] Referral ID Status Reason Start Date Expiration Date V isits Requested Visits Authorized [id number] Closed Auto-Generate d Referral 03/09/2024 03/09/2025 1 1 Reason Onset Date Comments Care 06/01/2024 Reason Onset Date Comments Care 07/27/2024 Reason Comments 6 month f/u Specialty Diagnoses / Procedures Referred By Contac t Referred To Contact Diagnoses SVT (supraventricular tachycardia) Procedures ECG 12 lead (Clinic Performed) Ramiro Hugo MD [facility] [address], [address] [address] Phone: tel: fax: Referral ID Status Reason Start Date Expiration Date V isits Requested Visits Authorized [id number] Authorized 08/03/2024 08/03/2025 1 1 Reason Comments Anemia Specialty Diagnoses / Procedures Referred By Contac t Referred To Contact Referral ID Status Reason Start Date Expiration Date V isits Requested Visits Authorized [id number] New Request 08/03/2024 10/02/2024 1 1 Reason Onset Date Comments Care 08/10/2024 Reason Comments Infusion Specialty Diagnoses / Procedures Referred By Contac t Referred To Contact Diagnoses Maternal iron deficiency anemia complicating , third trimester (HCC) Nayely Gil PA-C [address] [place] [address] Phone: tel: fax: [facility] [address] [place] [address] Phone: tel: fax: Referral ID Status Reason Start Date Expiration Date V isits Requested Visits Authorized [id number] Authorized 08/06/2024 02/09/2025 1 99 Referral ID Status Reason Start Date Expiration Date V isits Requested Visits Authorized [id number] Authorized 08/06/2024 02/09/2025 1 100 Reason Onset Date Comments Care 08/24/2024 Specialty Diagnoses / Procedures Referred By Contpari t Referred To Contact [facility] Diagnoses History of shoulder dystocia in prior Procedures OBSTETRIC ULTRASOUND WHI US PREG UTERUS AFTER 1ST TRIMEST GESTATION Prabhu Ortez MD [address] [place] [address] Phone: tel: fax: [facility] [address] [place] [address] Referral ID Status Reason Start Date Expiration Date V isits Requested Visits Authorized [id number] Closed Auto-Generate d Referral 08/24/2024 08/24/2025 1 [...] Dr. Renato Edouard MD Family Provider Active [facility] Primary Care Provider A ctive Team Status: Inactive Member Role Status Dates [facility] Primary Care Provider A ctive Dr. Neelima [...] Dr. Neelima Dahl MD Attending Provider Active Car Blocker Relationship Specialty Start Date End Date Neelima Dahl MD [address] [address] PCP - General MECHANICAL APPRENTICE 04/30/22 Car Blocker Relationship Specialty Start Date End Date Neelima Dahl MD [address] [place] [address] PCP - General MECHANICAL APPRENTICE 04/30/22 Car Blocker Relationship Specialty Start Date End Date Neelima Dahl MD [address] [place] [address] PCP - General MECHANICAL APPRENTICE 04/30/22 Car Blocker Relationship Specialty Start Date End Date Neelima Dahl MD [address] [address] PCP - General MECHANICAL APPRENTICE 04/30/22 Car Blocker Relationship Specialty Start Date End Date Neelima Dahl MD [address] [address] PCP - General MECHANICAL APPRENTICE 04/30/22 Car Blocker Relationship Specialty Start Date End Date Neelima Dahl MD [address] [address] PCP - General MECHANICAL APPRENTICE 04/30/22 Car Blocker Relationship Specialty Start Date End Date Neelima Dahl MD [address] [place] [address] PCP - General MECHANICAL APPRENTICE 04/30/22 Car Blocker Relationship Specialty Start Date End Date Neelima Dahl MD [address] [place] [address] PCP - General Straddle Bug Driver 04/30/22 Car Blocker Relationship Specialty Start Date End Date Neelima Dahl MD [address] [place] [address] PCP - General Straddle Bug Driver 04/30/22 Car Blocker Relationship Specialty Start Date End Date Neelima Dahl MD [address] [place] [address] PCP - General Straddle Bug Driver 04/30/22 Car Blocker Relationship Specialty Start Date End Date Jacob Mackenzie DO [address] [place] [address] PCP - General Family Medicine 05/29/23 Car Blocker Relationship Specialty Start Date End Date Jacob Mackenzie DO [address] [place] [place] [address] PCP - General Family Medicine 05/29/23 Car Blocker Relationship Specialty Start Date End Date Jacob Mackenzie DO [address] [place] [address] PCP - General Family Medicine 05/29/23 Car Blocker Relationship Specialty Start Date End Date Rachell Amador, PIPE STEM [place]-SEMICONDUCTOR WAFERS TESTER [address] [place] [address] PCP - General Family Medicine 06/18/23 Car Blocker Relationship Specialty Start Date End Date Gueroloco Rachell Yoana PIPE STEM [facility] [address] [place] [place] [address] PCP - General Family Medicine 06/18/23 Car Blocker Relationship Specialty Start Date End Date Tatum Rachell Yoana PIPE STEM [facility] [address] [place] [place] [address] PCP - General Family Medicine 06/18/23 Car Blocker Relationship Specialty Start Date End Date Rachell Amador PIPE STEM [facility] [address] [place] [place] [address] PCP - General Family Medicine 06/18/23 Team Status: Active Member Role Status Dates Dr. Renato Edouard MD Family Provider Active Rachell Amador DIGITAL HARDWARE DESIGN ENGINEER, DIGITAL HARDWARE DESIGN ENGINEER-C Primary Care Provider Active Team Status: Inactive Member Role Status Dates Rachell Amador DIGITAL HARDWARE DESIGN ENGINEER, DIGITAL HARDWARE DESIGN ENGINEER-C Primary Care Provider Active Dr. Roger Osman , Emergency Provider Active Car Blocker Relationship Specialty Start Date End Date Rachell Amador PIPE STEM [place].SEMICONDUCTOR WAFERS TESTER [address] [place] [place] [address] PCP - General Family Medicine 06/22/23 Car Blocker Relationship Specialty Start Date End Date Tatum Rachell Lees PIPE STEM [employer]-SEMICONDUCTOR WAFERS TESTER [address] [place] [address] PCP - General Family Medicine 06/18/23 Saturnino Velázquez, [address] [place] [address] Department [place] [address] Consulting Physician Emergency Medicine 06/24/23 Car Blocker Relationship Specialty Start Date End Date Rachell Amador APRN.SEMICONDUCTOR WAFERS TESTER [address] [facility] [place] [phone] PCP - General Family Medicine 06/22/23 Car Blocker Relationship Specialty Start Date End Date Rachell Amador PIPE STEM [place].SEMICONDUCTOR WAFERS TESTER [address] [place] [address] PCP - General Family Medicine 06/22/23 Car Blocker Relationship Specialty Start Date End Date Rachell Amador PIPE STEM [employer]-SEMICONDUCTOR WAFERS TESTER [address] [place] [address] PCP - General Family Medicine 06/18/23 Saturnino Velázquez DO [address] [place] [address] Department [place] [address] Consulting Physician Emergency Medicine 06/24/23 Car Blocker Relationship Specialty Start Date End Date Rachell Amador PIPE STEM [place].SEMICONDUCTOR WAFERS TESTER [address] [place] [address] PCP - General Family Medicine 06/22/23 Car Blocker Relationship Specialty Start Date End Date Rachell Amador APRN.SEMICONDUCTOR WAFERS TESTER [address] [place] [place] [address] PCP - General Family Medicine 06/22/23 Car Blocker Relationship Specialty Start Date End Date Rachell Amador PIPE STEM [employer].SEMICONDUCTOR WAFERS TESTER [address] [place] [address] PCP - General Family Medicine 06/22/23 Car Blocker Relationship Specialty Start Date End Date Rachell Amador PIPE STEM [employer]-SEMICONDUCTOR WAFERS TESTER [address] [place] [address] PCP - General Family Medicine 06/18/23 Saturnino Velázquez, DO [address] [place] [address] [place] [address] Consulting Physician Emergency Medicine 06/24/23 Miki Jaramillo MD [address] [place] [address] Consulting Physician Hematology and Oncology 07/02/23 Car Blocker Relationship Specialty Start Date End Date Rachell Amador PIPE STEM [employer]ER-SEMICONDUCTOR WAFERS TESTER [address] [place] [address] PCP - General Family Medicine 06/18/23 Saturnino Velázquez, DO [address] [place] [address] Consulting Physician Emergency Medicine 06/24/23 Miki Jaramillo MD [address] [place] [address] Consulting Physician Hematology and Oncology 07/02/23 Car Blocker Relationship Specialty Start Date End Date Rachell Amador PIPE STEM [employer]ER-SEMICONDUCTOR WAFERS TESTER [address] [place] [address] PCP - General Family Medicine 06/18/23 Saturnino Velázquez, DO [address] [place] [address] [place] [address] Consulting Physician Emergency Medicine 06/24/23 Miki Jaramillo MD [address] [place] [address] Consulting Physician Hematology and Oncology 07/02/23 Car Blocker Relationship Specialty Start Date End Date Rachell Amador, PIPE STEM [employer]-SEMICONDUCTOR WAFERS TESTER [address] [place] [address] PCP - General Family Medicine 06/18/23 Saturnino Velázquez DO [address] [place] [address] Department [place] [address] Consulting Physician Emergency Medicine 06/24/23 Miki Jaramillo MD [address] [place] [address] Consulting Physician Hematology and Oncology 07/02/23 Car Blocker Relationship Specialty Start Date End Date Rachell Amador, PIPE STEM [place].SEMICONDUCTOR WAFERS TESTER [address] [place] [address] PCP - General Family Medicine 06/22/23 Car Blocker Relationship Specialty Start Date End Date Rachell Amador, PIPE STEM [place].SEMICONDUCTOR WAFERS TESTER [address] [facility] [place] [address] PCP - General Family Medicine 06/22/23 Car Blocker Relationship Specialty Start Date End Date Rachell Amador, PIPE STEM [place].SEMICONDUCTOR WAFERS TESTER [address] [place] [address] PCP - General Family Medicine 06/22/23 Car Blocker Relationship Specialty Start Date End Date Rachell Amador, PIPE STEM [place].SEMICONDUCTOR WAFERS TESTER [address] [place] [address] PCP - General Family Medicine 06/22/23 Car Blocker Relationship Specialty Start Date End Date Rachell Amador, PIPE STEM [employer].SEMICONDUCTOR WAFERS TESTER [address] [place] [address] PCP - General Family Medicine 06/22/23 Car Blocker Relationship Specialty Start Date End Date Rachell Amador, PIPE STEM [place].SEMICONDUCTOR WAFERS TESTER [address] [place] [address] PCP - General Family Medicine 06/22/23 Car Blocker Relationship Specialty Start Date End Date Rachell Amador, PIPE STEM [employer]ER.SEMICONDUCTOR WAFERS TESTER [address] [place] [address] PCP - General Family Medicine 06/22/23 Car Blocker Relationship Specialty Start Date End Date Rachell Amador, PIPE STEM [employer].SEMICONDUCTOR WAFERS TESTER [address] [place] [address] PCP - General Family Medicine 06/22/23 Car Blocker Relationship Specialty Start Date End Date Rachell Amador, PIPE STEM [employer].SEMICONDUCTOR WAFERS TESTER [address] [place] [address] PCP - General Family Medicine 06/22/23 Car Blocker Relationship Specialty Start Date End Date Rachell Amador, PIPE STEM [place].SEMICONDUCTOR WAFERS TESTER [address] [place] [address] PCP - General Family Medicine 06/22/23 Car Blocker Relationship Specialty Start Date End Date Rachell Amador, PIPE STEM [place].SEMICONDUCTOR WAFERS TESTER [address] [place] [address] PCP - General Family Medicine 06/22/23 Car Blocker Relationship Specialty Start Date End Date Rachell Amador, PIPE STEM [employer].SEMICONDUCTOR WAFERS TESTER [address] [place] [address] PCP - General Family Medicine 06/22/23 Car Blocker Relationship Specialty Start Date End Date Rachell Amador, PIPE STEM [place].SEMICONDUCTOR WAFERS TESTER [address] [place] [address] PCP - General Family Medicine 06/22/23 Car Blocker Relationship Specialty Start Date End Date Rachell Amador, PIPE STEM [employer].SEMICONDUCTOR WAFERS TESTER [address] [place] [address] PCP - General Family Medicine 06/22/23 Car Blocker Relationship Specialty Start Date End Date Rachell Amador, PIPE STEM [place].SEMICONDUCTOR WAFERS TESTER [address] [place] [address] PCP - General Family Medicine 06/22/23 Car Blocker Relationship Specialty Start Date End Date Rachell Amador, PIPE STEM [employer]ER.SEMICONDUCTOR WAFERS TESTER [address] [place] [address] PCP - General Family Medicine 06/22/23 Car Blocker Relationship Specialty Start Date End Date Rachell Amador, PIPE STEM [employer]ER.SEMICONDUCTOR WAFERS TESTER [address] [place] [address] PCP - General Family Medicine 06/22/23 Car Blocker Relationship Specialty Start Date End Date Rachell Amador, PIPE STEM [employer]ER.SEMICONDUCTOR WAFERS TESTER [address] [place] [address] PCP - General Family Medicine 06/22/23 Car Blocker Relationship Specialty Start Date End Date Rachell Amador, PIPE STEM SA[employer]ER.SEMICONDUCTOR WAFERS TESTER [address] [place] [address] PCP - General Family Medicine 06/22/23 Car Blocker Relationship Specialty Start Date End Date Rachell Amador APRN.SEMICONDUCTOR WAFERS TESTER [address] [place] [address] PCP - General Family Medicine 06/22/23 Car Blocker Relationship Specialty Start Date End Date Rachell Amador APRN.SEMICONDUCTOR WAFERS TESTER [address] [place] [address] PCP - General Family Medicine 06/22/23 Car Blocker Relationship Specialty Start Date End Date Rachell Amador APRN-SEMICONDUCTOR WAFERS TESTER [address] [facility], [place] [id number] PCP - General Family Medicine 06/18/23 Saturnino Velázquez DO [address] [place] [address] Department [place] [address] Consulting Physician Emergency Medicine 06/24/23 Miki Jaramillo MD [facility] [address] [place] [address] Consulting Physician Hematology and Oncology 07/02/23 Car Blocker Relationship Specialty Start Date End Date Rachell Amador APRN.SEMICONDUCTOR WAFERS TESTER [address] [place] [address] PCP - General Family Medicine 06/22/23 Car Blocker Relationship Specialty Start Date End Date Rachell Amador APRN-SEMICONDUCTOR WAFERS TESTER [address] [place] [address] PCP - General Family Medicine 06/18/23 Saturnino Velázquez, DO [address] [place] [address] Emergency Medicine [place] [id number] Consulting Physician Emergency Medicine 06/24/23 Miki Jaramillo MD [address] [place] [address] Consulting Physician Hematology and Oncology 07/02/23 Car Blocker Relationship Specialty Start Date End Date Rachell Amador, PIPE STEM [employer]-SEMICONDUCTOR WAFERS TESTER [address] [place] [address] PCP - General Family Medicine 06/18/23 Saturnino Velázquez, DO [address] [place] [address] [place] [address] Consulting Physician Emergency Medicine 06/24/23 Miki Jaramillo MD [address] [place] [address] Consulting Physician Hematology and Oncology 07/02/23 Car Blocker Relationship Specialty Start Date End Date Rachell Amador PIPE STEM [employer]-SEMICONDUCTOR WAFERS TESTER [address] [place] [address] PCP - General Family Medicine 06/18/23 Saturnino Velázquez, DO [address] [place] [address] [place] [address] Consulting Physician Emergency Medicine 06/24/23 Miki Jaramillo MD [address] [place] [address] Consulting Physician Hematology and Oncology 07/02/23 Ramiro Hugo MD [address] [place] [address] Consulting Physician Cardiology 01/27/24 Car Blocker Relationship Specialty Start Date End Date Rachell Amador, PIPE STEM [employer]ER-SEMICONDUCTOR WAFERS TESTER [address] [place] [address] PCP - General Family Medicine 06/18/23 Saturnino Velázquez DO [address] [place] [address] Department [place] [address] Consulting Physician Emergency Medicine 06/24/23 Miki Jaramillo MD [address] [place] [address] [facility] [address] [place] [address] Consulting Physician Hematology and Oncology 07/02/23 Ramiro Hugo MD [address] [place] [address] Consulting Physician Cardiology 01/27/24 Car Blocker Relationship Specialty Start Date End Date Rachell Amador, PIPE STEM [employer]ER.SEMICONDUCTOR WAFERS TESTER [address] [place] [address] PCP - General Family Medicine 06/22/23 Car Blocker Relationship Specialty Start Date End Date Rachell Amador, PIPE STEM [place].SEMICONDUCTOR WAFERS TESTER [address] [place] [address] PCP - General Family Medicine 06/22/23 Car Blocker Relationship Specialty Start Date End Date Rachell Amador, PIPE STEM [employer]ER.SEMICONDUCTOR WAFERS TESTER [address] [place] [address] PCP - General Family Medicine 06/22/23 Car Blocker Relationship Specialty Start Date End Date Rachell Amador, PIPE STEM [place]ER.SEMICONDUCTOR WAFERS TESTER [address] [place] [address] PCP - General Family Medicine 06/22/23 Car Blocker Relationship Specialty Start Date End Date Rachell Amador, PIPE STEM [place].SEMICONDUCTOR WAFERS TESTER [address] [place] [address] PCP - General Family Medicine 06/22/23 Car Blocker Relationship Specialty Start Date End Date Rachell Amador, PIPE STEM [place].SEMICONDUCTOR WAFERS TESTER [address] [place] [address] PCP - General Family Medicine 06/22/23 Car Blocker Relationship Specialty Start Date End Date Rachell Amador, PIPE STEM [employer]ER.SEMICONDUCTOR WAFERS TESTER [address] [place] [address] PCP - General Family Medicine 06/22/23 Car Blocker Relationship Specialty Start Date End Date Rachell Amador, PIPE STEM [employer].SEMICONDUCTOR WAFERS TESTER [address] [place] [address] PCP - General Family Medicine 06/22/23 Car Blocker Relationship Specialty Start Date End Date Rachell Amador, PIPE STEM [place].SEMICONDUCTOR WAFERS TESTER [address] [place] [address] PCP - General Family Medicine 06/22/23 Car Blocker Relationship Specialty Start Date End Date Rachell Amador, PIPE STEM [employer]ER.SEMICONDUCTOR WAFERS TESTER [address] [place] [address] PCP - General Family Medicine 06/22/23 Car Blocker Relationship Specialty Start Date End Date QueRachell adan APRN.SEMICONDUCTOR WAFERS TESTER [address] [facility] [place] [id number] PCP - General Family Medicine 06/22/23 Car Blocker Relationship Specialty Start Date End Date Rachell Amador APRN-SEMICONDUCTOR WAFERS TESTER [address] [facility] [place] [id number] PCP - General Family Medicine 06/18/23 Saturnino Velázquez DO [address] [place] [address] Department of Emergency Medicine [place], [place] [phone] Consulting Physician Emergency Medicine 06/24/23 Miki Jaramillo MD [address] [place] [address] [facility] [address] [place] [address] Consulting Physician Hematology and Oncology 07/02/23 Ramiro Hugo MD [address] [facility] [address] [place] [address] Consulting Physician Cardiology 01/27/24 Team Status: Inactive Member Role Status Dates Rachell Amador DIGITAL HARDWARE DESIGN ENGINEER, DIGITAL HARDWARE DESIGN ENGINEER-C Primary Care Provider Active Start: August 03, 2024 End: August 03, 2024 Dr. Prabhu Ortez MD Attending Provider Active Start: August 03, 2024 End: August 03, 2024 Dr. Prabhu Ortez MD Referring Provider Active Start: August 03, 2024 End: August 03, 2024 Car Blocker Relationship Specialty Start Date End Date Rachell Amador APRN.SEMICONDUCTOR WAFERS TESTER [address] [facility] [place] [id number] PCP - General Family Medicine 06/22/23 Car Blocker Relationship Specialty Start Date End Date Rachell Amador APRN.SEMICONDUCTOR WAFERS TESTER [address] [place] [address] PCP - General Family Medicine 06/22/23 Car Blocker Relationship Specialty Start Date End Date Rachell Amador, PIPE STEM SAWYER.SEMICONDUCTOR WAFERS TESTER [address] [place] [address] PCP - General Family Medicine 06/22/23 Car Blocker Relationship Specialty Start Date End Date Rachell Amador, PIPE STEM [employer]YER.SEMICONDUCTOR WAFERS TESTER [address] [place] [address] PCP - General Family Medicine 06/22/23 Car Blocker Relationship Specialty Start Date End Date Rachell Amador, PIPE STEM SAWYER.SEMICONDUCTOR WAFERS TESTER [address] [place] [address] PCP - General Family Medicine 06/22/23 Car Blocker Relationship Specialty Start Date End Date Rachell Amador, PIPE STEM SAWYER.SEMICONDUCTOR WAFERS TESTER [address] [place] [address] PCP - General Family Medicine 06/22/23 Car Blocker Relationship Specialty Start Date End Date Rachell Amador, PIPE STEM SAWYER.SEMICONDUCTOR WAFERS TESTER [address] [place] [address] PCP - General Family Medicine 06/22/23 Car Blocker Relationship Specialty Start Date End Date Rachell Amador, PIPE STEM SAWYER.SEMICONDUCTOR WAFERS TESTER [address] [place] [address] PCP - General Family Medicine 06/22/23 Car Blocker Relationship Specialty Start Date End Date Rachell Amador, PIPE STEM SAWYER.SEMICONDUCTOR WAFERS TESTER [address] [place] [address] PCP - General Family Medicine 06/22/23 Car Blocker Relationship Specialty Start Date End Date Rachell Amador PIPE STEM SAWYER.SEMICONDUCTOR WAFERS TESTER [address] [place] [address] PCP - General Family Medicine 06/22/23 Team Status: Active Member Role/Relationship Status Dates Rachell Amador DIGITAL HARDWARE DESIGN ENGINEER, DIGITAL HARDWARE DESIGN ENGINEER-C Primary Care Provider Active Team Status: Inactive Member Role/Relationship Status Dates Rachell Amador DIGITAL HARDWARE DESIGN ENGINEER, DIGITAL HARDWARE DESIGN ENGINEER-C Primary Care Provider Active Start: August 03, 2024 End: August 03, 2024 Dr. Prabhu Ortez MD Attending Provider Active Start: August 03, 2024 End: August 03, 2024 Dr. Prabhu Ortez MD Referring Provider Active Start: August 03, 2024 End: August 03, 2024 Team Status: Inactive Member Role/Relationship Status Dates Rachell Amador DIGITAL HARDWARE DESIGN ENGINEER, DIGITAL HARDWARE DESIGN ENGINEER-C Primary Care Provider Active Start: September 07, 2024 End: September 08, 2024 Dr. Yamila Ballard MD Attending Provider Active Start: September 07, 2024 End: September 08, 2024 Car Blocker Relationship Specialty Start Date End Date Rachell Amador, PIPE STEM SAWYER.SEMICONDUCTOR WAFERS TESTER [address] [place] [address] PCP - General Family Medicine 06/22/23 Car Blocker Relationship Specialty Start Date End Date Rachell Amador, PIPE STEM SAWYER.SEMICONDUCTOR WAFERS TESTER [address] [place] [address] PCP - General Family Medicine 06/22/23 Team Status: Inactive Member Role/Relationship Status Dates Rachell Amador DIGITAL HARDWARE DESIGN ENGINEER, DIGITAL HARDWARE DESIGN ENGINEER-C Primary Care Provider Active Start: September 09, 2024 End: September 09, 2024 Jaquelin Hi CNM Attending Provider Active St art: September 09, 2024 End: September 09, 2024 Jaquelin Hi CNM Referring Provider Active St art: September 09, 2024 End: September 09, 2024 Car Blocker Relationship Specialty Start Date End Date Rachell Amador, PIPE STEM SAWYER.SEMICONDUCTOR WAFERS TESTER [address] [place] [place], [place] [id number] PCP - General Family Medicine 06/22/23 Team Status: Inactive Member Role/Relationship Status Dates Rachell Amador DIGITAL HARDWARE DESIGN ENGINEER, DIGITAL HARDWARE DESIGN ENGINEER-C Primary Care Provider Active Start: September 19, 2024 End: September 19, 2024 Jaquelin Hi CNM Attending Provider Active St art: September 19, 2024 End: September 19, 2024 Car Blocker Relationship Specialty Start Date End Date Rachell Amador, PIPE STEM SA[employer]YER.SEMICONDUCTOR WAFERS TESTER [address] [place] [place], [place] [id number] PCP - General Family Medicine 06/22/23 Car Blocker Relationship Specialty Start Date End Date Rachell Amador, PIPE STEM SAWYER.SEMICONDUCTOR WAFERS TESTER [address] [facility] [address] PCP - General Family Medicine 06/22/23 Car Blocker Relationship Specialty Start Date End Date Rachell Amador, PIPE STEM SAWYER.SEMICONDUCTOR WAFERS TESTER [address] [facility] [address] PCP - General Family Medicine 06/22/23 Car Blocker Relationship Specialty Start Date End Date Rachell Amador, PIPE STEM SAWYER.SEMICONDUCTOR WAFERS TESTER [address] [place] [place] [address] PCP - General Family Medicine 06/22/23 Car Blocker Relationship Specialty Start Date End Date Rachell Amador, PIPE STEM SAWYER.SEMICONDUCTOR WAFERS TESTER [address] [facility] [place] [address] PCP - General Family Medicine 06/22/23 Scheduled [...] RN)184 (Stopped - Provider: Marco Lazo RN) [id number] (Choletec) injection 6 millicurie (COMPLETED) 6 millicurie, [...] pain scores based on patient preference? Yes 3089 (Given - Provid er: Severino Braswell RN) [...] (New Bag - Prov ider: Laura Diaz APRN-RETAIL SHIFT MANAGER)1135 (Stopped - Provider: Laura Diaz APRN-JOSE GUADALUPE) [...] Dakota Barajas RN - Comment: KVO 7 swiss sheath RFV)1116 (Stopped - Provider: Jimmy Black RN) heparin PF 1,000 units in sodium chloride 0.9% 500 mL (2 unit/mL) flush infusion (CANCELED) Continuous PRN, Starting on Fri10/03/23 at 0836, Intraprocedure 0836 (New Bag - Prov ider: Dakota Barajas RN - Comment: KVO 8 swiss sheath RFV)1116 (Stopped - Provider: Jimmy Black, [...] Dakota Barajas RN - Comment: KVO 7 swiss sheath LFV)0837 (Rate/Dose Change - Provider: Jimmy Black RN - Comment: KVO/medications 7 swiss shearh LFV)1116 (Stopped - Provider: Jimmy Black [...] BE BASED ON THE PRIMARY CLINICAL RECORDS. [employer] [facility]. provides no warranty or guarantee of the accuracy or completeness of information in this document.
[2024-10-07] MEDS: HYDROmorphone 0.5 MG/0.5 ML SYRINGE IV ×2 (03:42→09:58)
--- NOTE | 2024-10-07 06:53 | FALS_PTH ---
PATIENT: KEAGAN ALICIA LOC: [facility] U#:[id number] AGE/SX: 24/F ROOM: [facility] RE10/07/[address]: Dr. Myra Gee, MDDOB: 2000 BED: 1 DIS: 10/09/2024 SPEC #: [id number] RECD: 10/07/24 07:13 STATUS: JAYE KIKE #: [id number] VINEET: 10/07/24 06:[address]: Myra Gee DEPT: SURGICAL PATHOLOGY RECD BY: Steven Birmingham ENTERED: 10/07/24 10:28 SP TYPE: FALL TUBES OTHR DR: ZIA Duke Tissues: A - Fallopian tube Procedures: Surgery Specimen Level II HEADER OPERATION: Tubal ligation PRE-OP DIAGNOSIS: Sterilization TISSUE SUBMITTED: A- Bilateral fallopian tubes - tie in right MICROSCOPIC DIAGNOSIS A. Fallopian tubes, tubal ligation: A1. No significant pathologic change, complete luminal cross-section confirmed (left). A2. No significant pathologic change, complete luminal cross-section confirmed (right). MICROSCOPIC DESCRIPTION Slides are reviewed. GROSS DESCRIPTION A. Received fresh and subsequently placed in formalin labeled the patient's name and date of . Designated as RT tube are 2 pink-purple to red fimbriated fallopian tubes. There is a suture designated as right per the specimen requisition. The fallopian tubes measure 6.2 x 0.9 cm (left) and 8.0 x 0.7 cm (right). Few paratubal cyst are identified, averaging <0.1 cm. Exercise Planner sections are submitted in 2 cassettes as follows: A1: Left fallopian tubeA2: Right fallopian tube DC 10/07/2024 CPT:45939b7
[2024-10-07 07:19] LABS: Pathology Specimen OB SEE PATHOLOGY REPORT
[2024-10-07] MEDS: Metoprolol(XL)Succ 25 MG Tablet PO ×2 (09:56→21:02)
[2024-10-07] MEDS: Senna/Docusate Sodium 1 Tablet PO (13:32)
[2024-10-07] MEDS: Rho(D) Immune Globulin 300 MCG (1500 Unit) Syringe IV (17:46)
[2024-10-08] VITALS (26 sets, daily range): BP systolic 91–122; BP diastolic 46–72; PULSE 78–200; RESP 10–18; TEMP 36.6–36.9; O2SAT 96–100; BMI 35.6
[2024-10-08] MEDS: DiphenhydrAMINE 50 MG/ML Syringe 25 MG IV (01:37)
[2024-10-08 06:03] LABS: Hematocrit 30.9 % (37-47); Hemoglobin 9.7 g/dL (12.0-15.0); Mean Corp Hgb Conc 31.4 g/dL (32-36); Mean Corpuscular Volume 90.1 fL (81-99); POSITIVE MORPHOLOGY YES; Platelet Count 111 K/mm3 (150-450); RBC Distribution Width CV 23.4 % (11.6-14.6); RBC Distribution Width SD 75.7 fl (35.1-43.9); Red Blood Count 3.43 M/mm3 (4.2-5.4); White Blood Count 8.4 K/mm3 (4.4-11.0)
--- NOTE | 2024-10-08 06:47 | PCM.PN.OB ---
Subjective Subjective Doing well. Ambulating slowly due to pain and voiding without difficulty. Mild lochia. Bottle feeding. Objective Data Objective Data Vital Signs: Vital Signs Temp Pulse Resp BP Pulse Ox O2 Del Method 97.2 F L 100 14 111/60 96 Room Air 10/07/24 20:50 10/08/24 04:38 10/08/24 04:38 10/08/24 04:38 10/08/24 04:38 10/08/24 04:38 Oxygen Delivery Method Room Air Weight: 89.981 kg Body Mass Index (BMI) 35.1 Intake & Output: Intake and Output for Last 24 Hours 10/06/24 10/07/24 10/08/24 23:59 23:59 23:59 Intake Total 1250 / 1250 Output Total 2100 / 2100 300 / 300 Balance -850 / -850 -300 / -300 Lab / Micro Data 10/07/24 00:28 10/07/24 00:28 Labs: Laboratory Results - last 24 hr 10/07/24 13:50: Screen NEGATIVE, Baby's Blood Type A POSITIVE, Baby's ONE[place] NEGATIVE ROS Constitutional Constitutional: Denies headache(s) Cardiovascular Cardiovascular: Denies chest pain or dyspnea Gastrointestinal Gastrointestinal: Denies nausea or vomiting Genitourinary Genitourinary: Denies dysuria Physical Exam Const alert General Appearance: cooperative Eyes PERRL and EOMs intact bilaterally Resp normal respiratory effort GI soft to palpation and non-tender GI Narrative: soft, moderate distention, fundus firm, appropriately tender. Abdominal bandage clean dry and intact Uterus Palpation: uterus fundus firm ( below umbilicus) Extremity normal to inspection and full ROM Neuro oriented x3 and CN's II-XII intact bilaterally Psych mental status grossly normal Assessment & Plan (1) S/P : (2) Sterilization: PLAN: Plan Continue pain management. Anticipate discharge tomorrow
[2024-10-08 07:23] LABS: Scan Indicated on CBC? Y/N YES- FLAGS NOTED
[2024-10-08] MEDS: Metoprolol(XL)Succ 25 MG Tablet PO ×3 (10:19→23:13)
[2024-10-08] MEDS: Senna/Docusate Sodium 1 Tablet PO (10:19)
--- NOTE | 2024-10-08 15:26 | CASEMGMT ---
Social Work Assessment Labor and Delivery Unit Patient Address:[address] [place] [address] [address] [place] [address] Phone number: [phone] Date of Referral: 10/07/24 Time of Referral:? 254 Referred By: Dr. Barnett Date of Intervention: ??10/08/24 Time of Intervention:? 0 Reason for Referral:? mental health Sw completed chart review and acknowledges social work consult and acknowledges social work consult due to maternal mental health history. Sw presented to bedside and introduced self to mother of baby (ALMA DELIA- Kei). Sw remembers MOB from former admission in 2022. Sw explained reason for sw involvement and completed psychosocial assessment. History obtained from: medical records, MOB Household composition: ALMA DELIA reports that currently residing in her home is herself, her 7 year old son, Donell and her almost 2 year old daughter, Vin. MOB states that noone else lives in the home, except for baby when ready for discharge. MOB denies any problems or concerns with housing, stating that it is safe and secure. Patient's parent/guardian status:? ?MOB states that she is not sure who the father of baby (FOB) is. ALMA DELIA explains thats he was dating a man she met on Facebook dating in December when she had her period for three days. MOB states that she then broke up with him because he was a drunk. MOB states that she then started dating a friend of the family's for a brief period of time, when he was asking to move in with her. MOB states that she learned her lesson the hard way with Vin's dad, and ended things with that man before he moved in with her. Sw asked ALMA DELIA if she has intentions of establishing paternity. ALMA DELIA stated that she is not sure due to paternity not going to make the alleged father make child support payments. Sw encouraged ALMA DELIA to consider this, thinking about the baby and eventually wanting to know who her father is. ALMA DELIA expressed understanding and stated that she will more than likely establish paternity. Medical History: ?ALMA DELIA is 24 year old female who is 6, para 2- now 3 following labor and delivery of . ALMA DELIA received routine care during with [facility]. ALMA DELIA presented to hospital and delivered baby via scheduled on 8/28/25 at 39 weeks gestation. Baby girl, named Lay, was born weighing 9lb 5oz and had apgars of 8 and 9 at one and five minutes of life, respectfully. ALMA DELIA is bottle feeding and states that baby will be followed by Dr. Marion for pediatrics. Educational Status:? ALMA DELIA states that she graduated high school. 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 Infant Supplies:?? All necessary baby supplies obtained, including: car seat, safe sleep space, clothes, diapers and wipes. Childcare/Caregiver(s):?ALMA DELIA states that she is the primary caregiver to baby, along with her mom, grandpa and her uncle who help with childcare when she needs help. Transportation:?? MOB states that she drives and has reliable means of transportation. No barriers. Programs/Agencies Involved: ??ALMA DELIA is connected to community resources through [employer]: insurance and food benefits and WIC. ? Children Services/Legal Issues:??? MOB denies children services involvement. No issues or concerns warranting referral to be made at this time. Behavioral Health Issues: ??Mental Health History: ALMA DELIA has history of anxiety, depression and depression. MOB states that she struggled with after her son was born. MOB states that after her daughter was born she got connected to a counselor who put her on a lot of medication to help her manage her mental health, but she did not like taking all that medication so she stopped taking it. ALMA DELIA states that ?during her she did have some bouts of depression. ALMA DELIA says that currently she feels good, denies feeling anxious, down or tearful. ?? Substance Use History:?MOB states that she vapes nicotine regularly. MOB states that she also uses THC outside of . MOB states that she does not smoke in front of her children, and has THC in a place out of reach of her children. ? Family History:??ALMA DELIA states that her father is an alcoholic and has used every drug, and is currently in [facility] due to drug related charges. Sw encouraged MOB to use healthy and safe coping mechanisms opposed to using drugs or alcohol.??? Drug Screens: No drug screens observed while completing chart review. ?? Family/Social Stressors:? MOB denies any issues, concerns or stressors Support Systems: MOB states that her mom, her uncle and her grandpa are her biggest supports. Depression/Shaken Baby/Safe Sleeping:? Sw educated MOB on signs and symptoms of baby blues and depression and anxiety. MOB states that she is familiar with what to be on the lookout for. MOB reports that if she feels like she is struggling with symptoms she would talk to her mom. MOB states that she would be call her old counselor if she felt like she needed to get reestablished with a mental health counselor. Sw educated MOB on shaken baby prevention and ABCs of safe sleep. MOB expressed understanding. ASSESSMENT:? MOB and baby admitted following labor and delivery of . MOB with mental health history positive for anxiety, depression and depression. MOB is on medication to help her manage her mental health symptoms and has resources that she is able to get connected to if warranted. MOB states that she feels able to reach out to family if she is struggling. MOB was sitting comfortably in reclining chair and was open and receptive to meeting with sw. MOB talkative and conversation flowed easily and naturally. MOB observed holding baby lovingly and provided appropriate hands on care. ALMA DELIA has natural supports in place and has obtained all necessary baby supplies. ALMA DELIA is not 100% sure who the father of baby is, although she is pretty sure it is someone that she was seeing up until the beginning of December last year. MOB states that initially she did not plan on establishing paternity, but now will plan on doing so for the baby's sake. PLAN:? No other services requested or indicated. MOB and baby to be discharged when medically ready. Parents were provided literature regarding: signs and symptoms of baby blues and mood and anxiety disorders, Help Me Grow, shaken baby prevention, ABCs of safe sleep and a list of [place] health resources that are available for them should any needs present themselves. Humera Vogel, DEPUTY SHERIFF LIEUTENANT, HARDBOARD PRESS OPERATOR
--- NOTE | 2024-10-08 17:25 | EKG12_ITS ---
Test Reason : SVT Blood Pressure : */* mmHG Vent. Rate : 178 BPM Atrial Rate : * BPM P-R Int : * ms QRS Dur : 82 ms QT Int : 262 ms P-R-T Axes : * 68 -31 degrees QTcB Int : 451 ms Critical Test Result: High HR Supraventricular tachycardia Marked ST abnormality, possible inferior subendocardial injury Abnormal ECG When compared with ECG of 22-Jun-2023 09:36, Vent. rate has increased by [address] now depressed in Inferior leads ST now depressed in Anterolateral leads T wave inversion now evident in Inferior leads T wave amplitude has increased in Lateral leads Confirmed by Puneet Trevino ([id number]), acquisition editor SKYLER BLAKE ([id number]) on 10/12/2024 10:49:12 AM Referred By: Myra Gee Confirmed By: Puneet Trevino
--- NOTE | 2024-10-08 17:43 | NURSING ---
Called to Pt room at 1720. Pt was in the restroom and noticed her heart was racing. Pt also feeling hot and sweaty. Upon entry to the room pt was sitting in chair and was diaphoretic. Pt placed on moinitor. HR 198. SPO2 100. BP 98/58. Dr Ballard called with update. Order to place EKG and give extra dose of metoprolol that pt is already taking for hx of svt. Will continue to monitor and call with update.
--- NOTE | 2024-10-08 17:52 | NURSING ---
Ice water rag placed on face and chest. Pt instructed to cough or bear down but does not want to because of c/s incision.
--- NOTE | 2024-10-08 18:33 | NURSING ---
Call placed to [facility] with most recent vs and patient status. At this time will continue to monitor patient and give medication time to work. If pt becomes more symptomatic will call back and will reevaluate plan.
--- NOTE | 2024-10-08 19:09 | NURSING ---
Pt up to bathroom. Began feeling on toilet. Used wheelchair to get back to bed. Pt feeling better once laying down.
--- NOTE | 2024-10-08 20:29 | ECHOD_ITS ---
Reason For Study Reason For Study: Arrhythmia Procedure This was a 2D Doppler, Color Flow transthoracic echocardiogram. Echo done with patient supine due to pain from recent C- Section. Exam performed portable in patient room. Left Ventricle Mildly dilated left ventricle. The estimated ejection fraction is 45-50 %. Right Ventricle Normal right ventricle. Normal systolic function. Atria Normal left atrium. Normal right atrium. Mitral Valve The mitral valve is structurally normal. No prolapse or stenosis seen. Tricuspid Valve Normal tricuspid valve. Aortic Valve Trisinus/trileaflet aortic valve. Pulmonic Valve The pulmonic valve is not well visualized. Great Vessels The aortic root is not well visualized. Pericardium/Pleural No pericardial effusion. MMode/2D Measurements & Calculations LVIDd: 5.9 cm IVSd: 1.9 cm Ao root diam: 2.7 cm LVIDs: 4.4 cm LVPWd: 1.1 cm RVDd: 3.7 cm FS: 24.6 % LAV(MOD-bp): 68.2 ml LVAd ap4: 37.7 cm2 SV(MOD-sp4): 71.8 ml LAV(MOD-bp) Indexed: 35.6 ml/m2 LVLd ap4: 8.7 cm SI(MOD-sp4): 37.5 ml/m2 LAV(MOD-sp2): 50.3 ml EDV(MOD-sp4): 139.1 ml LAV(MOD-sp4): 64.0 ml EDV(sp4-el): 139.2 ml LVAs ap4: 23.4 cm2 LVLs ap4: 7.0 cm ESV(MOD-sp4): 67.4 ml ESV(sp4-el): 66.5 ml EF(MOD-sp4): 51.6 % EF(sp4-el): 52.2 % SV(sp4-el): 72.7 ml LA A4 area: 22.6 cm2 LA dimension(2D): 3.9 cm RA A4 area: 19.8 cm2 TAPSE: 3.0 cm Time Measurements MV dec time: 0.19 sec Doppler Measurements & Calculations MV E max jayson: 118.4 cm/sec Lat Peak E' Jayson: 25.5 cm/sec Med Peak E' Jayson: 14.0 cm/sec MV A max jayson: 67.1 cm/sec E/E' lat: 4.6 E/E' med: 8.5 MV E/A: 1.8 MV V2 max: 124.7 cm/sec Ao V2 max: 147.6 cm/sec MV max P.2 mmHg MV dec slope: 559.0 cm/sec2 Ao max P.7 mmHg MV V2 mean: 69.9 cm/sec Ao V2 mean: 106.7 cm/sec MV mean P.3 mmHg Ao mean P.1 mmHg MV V2 VTI: 29.7 cm Ao V2 VTI: 29.7 cm AV (velocity ratio): 0.70 LV V1 max: 107.7 cm/sec PA V2 max: 96.1 cm/sec TR max jayson: 196.3 cm/sec LV V1 max P.6 mmHg TR max P.5 mmHg LV V1 mean P.6 mmHg LV V1 mean: 76.5 cm/sec LV V1 VTI: 20.7 cm ECHO/Echo Complete Interpretation Summary The estimated ejection fraction is 45-50 %. Mild LV systolic dysfunction No significant valvular abnormalities No previous echo to compare Ordering Physician: Carlos Villa Referring Physician: Myra Gee Performed By: Nate Cuevas RCS
--- NOTE | 2024-10-08 20:36 | CON.PCM.HO_ITS ---
Assessment & Plan Assessment/Plan (1) Sustained SVT: (2) H/O cardiac radiofrequency ablation: (3) S/P : (4) History of pulmonary embolism: (5) Elevated d-dimer: (6) Obesity (BMI 30.0-34.9): PLAN: Plan 1. Sustained SVT in the setting of previously known Paroxysmal SVT; s/p ablation (2023) on metoprolol 25mg PO BID - Transfer to PCU. Increase metoprolol to 50 mg PO BID. Give additional IV metoprolol as needed for recurrences of SVT. Check TSH and UDS. Check echocardiogram to evaluate LVEF. Finally, we will consult [facility] to see this patient on rounds in the a.m. for further recommendations without appreciated advance. 2. Recent 2 days ago at ~36 weeks gestation who was admitted to the [facility]FERTILITY MEDICAL ASSISTANT service of Dr. Gee complicating #1 - Noted. Thankfully, patient has healthy baby girl who is doing well. Distress of and recent likely triggered the persistent SVT outlined in #1 with the patient previously breaking through medications and having daily bouts of SVT that were short-lived in spite of being on metoprolol 25 mg PO BID. 3. Elevated D-dimer of 0.94 with a known history of provoked DVT (2023); after surgery treated with recommended anticoagulation and currently not on anticoagulation compounding #1 & #2 - CTA of chest with IV contrast negative for PE or other acute pathologic changes this admission. 4. Obesity (class II); with BMI of 35.1 this admission adding to the burden of disease outlined from #1 - #3 - Weight loss will be recommended. Check TSH. This complicates her case and may hamper recovery. 5. History of depression with anxiety; currently not on treatment - Stable. 6. DVT prophylaxis - As per INFERTILITY MEDICAL ASSISTANT team. Total time: Approximately 45 minutes. HPI Consult Data Date of Consult: 10/09/24 HPI Narrative Reason for Consultation: Sustained SVT @ ~170 bpm; s/p 2 days ago. HPI Narrative: KEAGAN ALICIA, is a 24 F with a past medical history of Paroxysmal SVT; s/p ablation (2023) on metoprolol 25mg PO BID, obesity (class II); with BMI of 35.1 this admission, history of provoked DVT (2023) after cholecystectomy; after surgery treated with recommended anticoagulation and currently not on anticoagulation with recent 2 days ago at ~36 weeks gestation who was admitted to the INFERTILITY MEDICAL ASSISTANT service of Dr. Gee when she developed sustained SVT @ ~170 bpm at ~17:30 hours with initial attempt at treatment at that time of metoprolol 25 mg PO once. Then at ~20:13 hours I was contacted via Backline text message by the Belt Operator that the the INFERTILITY MEDICAL ASSISTANT was requesting hospitalist service consultation. The patient explained to the RN's on the OB unit that she typically has paroxysms of SVT once daily - but they have never persisted - until now. Recommendation was made to give IV metoprolol 2.5 mg IV once - which apparently could not be administered until patient transferred to PCU to be on a photoengraving etcher. At approximately 21:08 hours patient actually received IV metoprolol and then converted to normal sinus rhythm within 5 minutes. Her dose of oral metoprolol was increased to 50 mg p.o. twice daily as her daily recurrences were happening in between doses when drug levels would have been at their lowest, which was further compounded by the stress of and acutely exacerbating her chronic condition. I spoke to the patient and her mother at the bedside and answered all her questions to the best of my ability. Patient was noted to have a mildly elevated D-dimer at 0.[address] of the chest with IV contrast that was negative for recurrent pulmonary embolism or other significant acute pathologic changes in addition to patient being clinically at her baseline. Thank you for allowing us to participate in the care of your patient. [facility] Medical History (Updated 10/09/24 @ 02:[address] Carlos Villa, DO) Pulmonary embolism Anxiety depression Depression Home Medications ?Medication ?Instructions ?Recorded ?Last Taken ?Type vit no.95-ferrous 1 tab PO DAILY 10/06/24 History fumarate 28 mg-folic acid 800 mcg tablet () aspirin 81 mg capsule 81 mg PO DAILY 10/06/24 History metoprolol succinate 25 mg 25 mg PO BID SVT 09/08/24 0 10/06/24 History tablet,extended release 24 hr Allergy/AdvReac Type Severity Reaction Status Date / Time latex AdvReac Mild Itching Verified 10/07/24 00:34 Family History Father Drug abuse Surgical History (Updated 10/08/24 @ 20:[address] Carlos Villa DO) H/O cardiac radiofrequency ablation Hx of cholecystectomy History of tonsillectomy and adenoidectomy Social History (Updated 06/24/23 @ 12:[address] Fabián Bob MD) household members: children Smoking Status: Current every day smoker tobacco type: e-cigarettes ROS ROS Narrative Review of Systems: Constitutional: Patient states she feels hot but she denies fever or chills. Eyes: Patient denies changes in vision or discharge from eyes. ENT: Patient denies runny nose, sore throat or ear pain. Resp: Patient denies shortness of breath or cough. CV: Patient admits to palpitations and heart racing which are typical of her previous bouts of SVT as per HPI. GI: Patient admits to mild residual abdominal pain after recent but she denies nausea, vomiting, diarrhea or constipation. : Patient denies dysuria or hematuria. MSK: Patient denies arthralgias or myalgias. Skin: Patient denies rash, abscess, wounds or jaundice. Psych: Patient denies symptoms of uncontrolled depression or anxiety. Neuro: Patient denies headache, paresthesias or focal neurologic deficits. Allergy: Patient denies lip swelling, tongue swelling or urticaria. Hematology: Patient denies easy bleeding or easy bruisability. Endocrinology: Patient denies polyuria, polydipsia, polyphagia or cold intolerance. 14 point ROS otherwise negative except for positives noted above in HPI. Physical Exam Const alert, oriented x3 and no apparent distress Constitutional Narrative: Obese and nontoxic in appearance. General Appearance: cooperative HEENT normocephalic, head/scalp atraumatic, hearing grossly normal bilaterally and moist oral mucous membranes Eyes PERRL, EOMs intact bilaterally and conjunctivae normal Neck no lymphadenopathy, supple and no JVD Resp normal respiratory effort, no retractions, no use of accessory muscles and clear to auscultation bilaterally Cardio Cardio Narrative: Patient was initially noted to be tachycardic at ~180 bpm. She was noted to be in normal sinus rhythm at ~90 bpm after IV metoprolol. GI normal to inspection, nondistended, normoactive bowel sounds, soft to palpation and non-distended GI Narrative: Patiently mildly tender after recent with no signs of infection or inflammation. Extremity normal to inspection, full ROM and no clubbing, cyanosis or edema Skin Skin Narrative: Patient has evidence of recent but no rash. Neuro oriented x3, CN's II-XII intact bilaterally, moves all extremities, no focal motor deficits and no sensory deficits noted Sensorium / Orientation: awake, alert, oriented to person, oriented to place and oriented to time Speech: speech normal Psych affect normal Medical Records Data Attestation: I reviewed the patient's medical records Lab / Micro Data Attestation: I reviewed the patient's lab results. 10/08/24 22:02 10/08/24 22:02 Labs: Laboratory Results - last 24 hr 10/08/24 05:50: WBC 8.4, RBC 3.43 L, Hgb 9.7 L, Hct 30.9 L, MCV 90.1, MCH 28.3, MCHC 31.4 L, RDW Std Deviation 75.7 H, RDW Coeff of Lorna 23.4 H, Plt Count 111 L Imaging [facility] Imaging Services [address] [place] [address] [id number] CTA Chest W/WO Contrast MR#: [id number] Acct: [id number] Name: KEAGAN ALICIA Rep #: [id number] : 2000 F 24 From: Jenelle Machado MD PCP: ZIA Duke Status: ADM IN Study: CTA Chest W/WO Contrast Date of Exam: 10/08/24 Exam# [id number] Ordering Dr: Carlos Villa DO PROCEDURE: CTA CHEST W/WO CONTRAST 10/09/2024 REASON FOR EXAM: EVALUATE FOR POSSIBLE RECURRENT PE TECHNIQUE: Procedure Code: CTCTACHWW Modality: CT Procedure: CTA CHEST W/WO CONTRAST Multiplanar Sagittal and Coronal images were obtained. CONTRAST: VOLUME: mL One or more dose reduction techniques were used (e.g., Automated exposure control, adjustment of the mA and/or kV according to patient size, use of iterative reconstruction technique). RADIATION DOSE SUMMARY: CTDlvol: 11.59 mGy DLP: 359.64 mGycm COMPARISON: 06-21-2024 CR # of known CTs in the past 12 months: # of known Cardiac Nuclear Medicine Studies in the past 12 months: FINDINGS: Suboptimal examination quality due to improper bolus acquisition timing and respiratory motion artifact. Non homogenous contrast opacification of the pulmonary segmental arteries and subsegmental arteries, possibly flow related artifacts. No obvious filling defects to suggest acute pulmonary embolism in the main pulmonary trunk, bilateral main pulmonary arteries or their branches. Dilated pulmonary artery and its branches. Patent thoracic aorta. No intraluminal hypodense thrombi, dissecting intimal flaps or significant aneurysmal dilatation. Cardiomegaly. Bilateral pulmonary atelectatic plates. No obvious pulmonary masses or consolidations. No pleural or pericardial sac collections. No pathologically enlarged lymph nodes are noted. Scanned osseous structures show no osseous destruction. Scanned upper abdominal cuts show suggestion of hepatosplenomegaly CT/CTA Chest W/WO Contrast IMPRESSION: No obvious major pulmonary arterial thromboembolism. Cardiomegaly with dilated pulmonary artery. No obvious pulmonary masses or consolidations. Reading [facility] CC: ZIA Winn; Dr. Carlos Villa DO ~ Value Stream Coach: Signed Charges/Coding Multi Select Codes Visit Charges Office Visit/Consults: [id number] IP Consult L3
--- NOTE | 2024-10-08 20:36 | NURSING ---
hospitalist called this RN for report on pt. Pt in SVT for the past 2.5 hours, pt feeling symptomatic states she has never been in SVT for this long, longest she has ever been in SVT has been 1.[address] Armas made aware she takes routine metoprolol 25 mg BID she was given another X1 dose around 1730 and heart rate remains in the 160-190 range. pt heart rate is currently 172. PRovider recommends giving pt a one time dose of 2.5 mg Metoprolol IV and transferring pt to PCU. this RN verified with powerhouse operator that IV metoprolol had to be given while pt is being monitored on a library monitor, and boxing and pressing supervisor then called PCU for placement. PCU will accept pt and who will be under the care of another guardian who will be staying all night with pt. Dr. Ballard notified of recommendation from the hospitalist and gave telephone order to this RN to proceed with PCU transfer. orders were placed and pt was wheeled up by Deandre PEREIRA. report was given to PCU pre wave assembler who assumes care of Pt.
--- NOTE | 2024-10-08 21:09 | NURSING ---
[address] Ballard, informed that pt continues to be in SVT, it has now been a little over 3.5 hours. HR ranges from 160's-190's and BP's are ranging from 100's-90's/60's-70's. Pt is no longer dizzy or lightheaded but does state she feels crummy. Pt has not been out of bed. Longest pt has been in SVT is 1.5 hours. states to consult Hospitalist at this time.
--- NOTE | 2024-10-08 21:14 | NURSING ---
2034 Call placed to PCU, report given to Tonie Charge Nurse in PCU.
[2024-10-08] MEDS: 0.9% Normal Saline (1000mL) 1,000 ML 999 ML IV (21:15)
--- NOTE | 2024-10-08 21:15 | NURSING ---
2044 Transferred to PCU in wheelchair, pt tolerated well. CONTINUOUS MINING MACHINE OPERATOR to assume care at this time.
[2024-10-08 22:32] LABS: Hematocrit 25.3 % (37-47); Hemoglobin 8.0 g/dL (12.0-15.0); Immature Granulocytes Count 0.080 X10^3/uL (0.0-0.0); Mean Corp Hgb Conc 31.6 g/dL (32-36); Mean Corpuscular Volume 89.4 fL (81-99); NRBC Flagged by Analyzer 0 % (0-5); POSITIVE MORPHOLOGY YES; Platelet Count 111 K/mm3 (150-450); RBC Distribution Width CV 23.6 % (11.6-14.6); RBC Distribution Width SD 74.8 fl (35.1-43.9); Red Blood Count 2.83 M/mm3 (4.2-5.4); White Blood Count 8.2 K/mm3 (4.4-11.0)
[2024-10-08 22:45] LABS: Differential Indicated SCAN CRITERIA MET
[2024-10-08 23:02] LABS: D-Dimer Quantitative (DVT/PE) 0.94 FEU/ug/m (0.27-0.49)
[2024-10-08] MEDS: 0.9% Normal Saline (1000mL) 1,000 ML 150 ML IV (23:11)
[2024-10-08 23:13] LABS: Magnesium 1.7 mg/dL (1.5-2.2)
--- NOTE | 2024-10-08 23:16 | CT_ITS ---
PROCEDURE: CTA CHEST W/WO CONTRAST 10/09/2024 REASON FOR EXAM: EVALUATE FOR POSSIBLE RECURRENT PE TECHNIQUE: Procedure Code: CTCTACHWW Modality: CT Procedure: CTA CHEST W/WO CONTRAST Multiplanar Sagittal and Coronal images were obtained. CONTRAST: VOLUME: mL One or more dose reduction techniques were used (e.g., Automated exposure control, adjustment of the mA and/or kV according to patient size, use of iterative reconstruction technique). RADIATION DOSE SUMMARY: CTDlvol: 11.59 mGy DLP: 359.64 mGycm COMPARISON: 06-21-2024 CR # of known CTs in the past 12 months: # of known Cardiac Nuclear Medicine Studies in the past 12 months: FINDINGS: Suboptimal examination quality due to improper bolus acquisition timing and respiratory motion artifact. Non homogenous contrast opacification of the pulmonary segmental arteries and subsegmental arteries, possibly flow related artifacts. No obvious filling defects to suggest acute pulmonary embolism in the main pulmonary trunk, bilateral main pulmonary arteries or their branches. Dilated pulmonary artery and its branches. Patent thoracic aorta. No intraluminal hypodense thrombi, dissecting intimal flaps or significant aneurysmal dilatation. Cardiomegaly. Bilateral pulmonary atelectatic plates. No obvious pulmonary masses or consolidations. No pleural or pericardial sac collections. No pathologically enlarged lymph nodes are noted. Scanned osseous structures show no osseous destruction. Scanned upper abdominal cuts show suggestion of hepatosplenomegaly CT/CTA Chest W/WO Contrast IMPRESSION: No obvious major pulmonary arterial thromboembolism. Cardiomegaly with dilated pulmonary artery. No obvious pulmonary masses or consolidations. Reading [facility]
[2024-10-08 23:17] LABS: AST(SGOT) 50 U/L (<=31); Alanine Aminotransfer ALT/SGPT 29 U/L (<=34); Albumin, Serum 2.7 g/dL (3.5-5.0); Alkaline Phosphatase 109 U/L (35-104); Anion Gap 13 (5-15); BUN 16 mg/dL (4-19); BUN/Creat Ratio 26.5 RATIO (10-20); Calcium,Total 8.0 mg/dL (7.6-11.0); Carbon Dioxide 19.1 mmol/L (21.0-32.0); Chloride 104 mmol/L (98-108); Estimated Creatinine Clearance 155.08 ml/min (50-250); Globulin 2.1 g/dL (2.2-4.2); Glucose 84 mg/dL (70-99); Potassium 3.9 mmol/L (3.3-5.1)
[2024-10-08 23:28] LABS: Anisocytosis 1+; Differential Comment SCANNED
[2024-10-08 23:29] LABS: Macrocytosis RARE; Microcytosis RARE; Polychromasia RARE
[2024-10-08 23:33] LABS: Troponin T High Sensitivity 13 ng/L (<=14)
[2024-10-09 04:00] VITALS: BP 128/66; PULSE 86; RESP 15; TEMP 37; O2SAT 100
[2024-10-09 04:15] LABS: Mucous, Urine 0 SEEN /hpf (<or=2+)
[2024-10-09 04:21] LABS: Glucose, Dipstick Normal (Normal); Ketone-Dipstick Negative (Negative); Leukocyte Esterase-Dipstick 100 /ul (Negative); Nitrite-Dipstick Negative (Negative); Occult Blood-Urine 250 /ul (Negative); Protein-Dipstick 100 mg/dl (Negative); Specific Gravity, Urine 1.015 (1.002-1.030); Urine Bilirubin Dipstick Negative (Negative)
[2024-10-09 04:52] LABS: Color, Urine SEE COMMENT BELOW (Yellow); Red Blood Cells-Urine > 100 SEEN /hpf (0-5); Squamous Epithelial Cells - UA 5-10 SEEN /hpf (5-10)
[2024-10-09 04:56] LABS: Troponin T High Sens 4 HR 40 ng/L (<=14)
[2024-10-09 05:14] LABS: Anion Gap 13 (5-15); BUN 14 mg/dL (4-19); BUN/Creat Ratio 24.2 RATIO (10-20); Calcium,Total 8.1 mg/dL (7.6-11.0); Carbon Dioxide 17.3 mmol/L (21.0-32.0); Chloride 104 mmol/L (98-108); Estimated Creatinine Clearance 165.97 ml/min (50-250); Glucose 69 mg/dL (70-99); Potassium 4.1 mmol/L (3.3-5.1)
[2024-10-09 06:00] VITALS: BMI 35.7
[2024-10-09 06:13] LABS: Hematocrit 26.4 % (37-47); Hemoglobin 8.2 g/dL (12.0-15.0); Immature Granulocytes Count 0.060 X10^3/uL (0.0-0.0); Mean Corp Hgb Conc 31.1 g/dL (32-36); Mean Corpuscular Volume 91.3 fL (81-99); Mean Platelet Vol. 14.3 fl (6.2-12.0); NRBC Flagged by Analyzer 0.3 % (0-5); POSITIVE MORPHOLOGY YES; Platelet Count 105 K/mm3 (150-450); RBC Distribution Width CV 24.1 % (11.6-14.6); RBC Distribution Width SD 78.7 fl (35.1-43.9); Red Blood Count 2.89 M/mm3 (4.2-5.4); White Blood Count 7.2 K/mm3 (4.4-11.0)
[2024-10-09 06:14] LABS: Barbiturate Urine NEGATIVE (< 200 ng/mL); Benzodiazepine Urine NEGATIVE (< 200 ng/mL); PCP Urine NEGATIVE (< 25 ng/mL); THC Urine NEGATIVE (< 50 ng/mL)
[2024-10-09 06:24] LABS: Differential Indicated SCAN CRITERIA MET
[2024-10-09 06:52] LABS: Anisocytosis 2+
[2024-10-09 06:57] LABS: AST(SGOT) 49 U/L (<=31); Alanine Aminotransfer ALT/SGPT 25 U/L (<=34); Albumin, Serum 2.7 g/dL (3.5-5.0); Alkaline Phosphatase 107 U/L (35-104); Globulin 2.2 g/dL (2.2-4.2); Magnesium 1.8 mg/dL (1.5-2.2)
[2024-10-09 06:58] VITALS: O2SAT 94
[2024-10-09 09:20] VITALS: BP 127/66; PULSE 79; RESP 18; TEMP 37.2; O2SAT 98
--- NOTE | 2024-10-09 09:20 | PN.HOSP_ITS ---
Subjective Subjective Saw patient at bedside this morning, mother present. Patient was sleeping when I arrived to the room and was fatigued due to several interruptions from sleep overnight. Reviewed telemetry and patient has been stable in normal sinus rhythm with heart rate in the 70s to 80s since yesterday evening around 11 PM, but no further runs of SVT. No other new concerns this morning. Objective Data Objective Data Vital Signs: Vital Signs Temp Pulse Resp BP Pulse Ox O2 Del Method 98.6 F 86 15 128/66 H 100 Room Air 10/09/24 04:00 10/09/24 04:00 10/09/24 04:00 10/09/24 04:00 10/09/24 04:00 10/09/24 04:00 Oxygen Delivery Method Room Air Weight: 91.6 kg Body Mass Index (BMI) 35.7 Intake & Output: Intake and Output for Last 24 Hours 10/07/24 10/08/24 10/09/24 23:59 23:59 23:59 Intake Total 1250 / 1250 1000 / 1000 1000 / 1000 Output Total 2100 / 2100 300 / 300 300 / 300 Balance -850 / -850 700 / 700 700 / 700 Lab / Micro Data 10/09/24 05:32 10/09/24 03:20 Labs: Laboratory Results - last 24 hr 10/08/24 22:02: WBC 8.2, RBC 2.83 L, Hgb 8.0 L, Hct 25.3 L, MCV 89.4, MCH 28.3, MCHC 31.6 L, RDW Std Deviation 74.8 H, RDW Coeff of Lorna 23.6 H, Plt Count 111 L, MPV TNP, Immature Gran % (Auto) 1.000 H, Neut % (Auto) 61.5, Lymph % (Auto) 26.9, [place] % (Auto) 8.9, Eos % (Auto) 1.5, Baso % (Auto) 0.2, Absolute Neuts (auto) 5.1, Absolute Lymphs (auto) 2.21, Nucleated RBC % 0, Differential Comment SCANNED, Polychromasia RARE, Anisocytosis 1+, Microcytosis RARE, Macrocytosis RARE, Ovalocytes RARE, D-Dimer Quant (PE/DVT) 0.94 H*, Sodium 136, Potassium 3.9, Chloride 104, Carbon Dioxide 19.1 L, Anion Gap 13, BUN 16, Creatinine 0.61 L, Estim Creat Clear Calc 155.08, Est GFR (MDRD) Non-Af 129, BUN/Creatinine Ratio 26.5 H, Glucose 84, Calcium 8.0, Phosphorus 3.5, Magnesium 1.7, Total Bilirubin < 0.15, AST 50 H, ALT 29, Alkaline Phosphatase 109 H, Troponin T High Sens 13, Total Protein 4.7 L, Albumin 2.7 L, Globulin 2.1 L, Albumin/Globulin Ratio 1.3, TSH 3.050 10/09/24 01:02: Troponin T Hi Sens 2 Hr 34 H 10/09/24 03:20: Sodium 134, Potassium 4.1, Chloride 104, Carbon Dioxide 17.3 L, Anion Gap 13, BUN 14, Creatinine 0.57 L, Estim Creat Clear Calc 165.97, Est GFR (MDRD) Non-Af 132, BUN/Creatinine Ratio 24.2 H, Glucose 69 L, Calcium 8.1, T roponin T Hi Sens 4Hr 40 H 10/09/24 04:00: Urine Color SEE COMMENT BELOW, Urine Clarity Turbid, Urine pH 6.0, Ur Specific [place] 1.015, Urine Protein 100 H, Urine Glucose (UA) Normal, Urine Ketones Negative, Urine Occult Blood 250 H, Urine Nitrite Negative, Urine Bilirubin Negative, Urine Urobilinogen Normal, Ur Leukocyte Esterase 100 H, Urine RBC > 100 SEEN, Urine WBC 50-100 SEEN, Ur Squamous Epith Cells 5-10 SEEN, Urine Bacteria 1+, Urine Mucus 0 SEEN 10/09/24 05:30: Urine Opiates Screen NEGATIVE, U Buprenorphine Qual NEGATIVE, Ur Oxycodone Screen PRESUMPTIVE POSITIVE, Urine Methadone Screen NEGATIVE, Urine Fentanyl Screen PRESUMPTIVE POSITIVE, Ur Barbiturates Screen NEGATIVE, Ur Phencyclidine Scrn NEGATIVE, Ur Amphetamines Screen NEGATIVE, U Benzodiazepines Scrn NEGATIVE, Urine Cocaine Screen NEGATIVE, U Cannabinoids Screen NEGATIVE 10/09/24 05:32: WBC 7.2, RBC 2.89 L, Hgb 8.2 L, Hct 26.4 L, MCV 91.3, MCH 28.4, MCHC 31.1 L, RDW Std Deviation 78.7 H, RDW Coeff of Lorna 24.1 H, Plt Count 105 L, MPV 14.3 H, Immature Gran % (Auto) 0.800, Neut % (Auto) 59.1, Lymph % (Auto) 28.7, [place] % (Auto) 8.9, Eos % (Auto) 2.1, Baso % (Auto) 0.4, Absolute Neuts (auto) 4.3, Absolute Lymphs (auto) 2.07, Nucleated RBC % 0.3, Anisocytosis 2+, Sodium Cancelled, Potassium Cancelled, Chloride Cancelled, Carbon Dioxide Cancelled, Anion Gap Cancelled, BUN Cancelled, Creatinine Cancelled, Est GFR (MDRD) Non-Af Cancelled, BUN/Creatinine Ratio Cancelled, Glucose Cancelled, Calcium Cancelled, Phosphorus 3.8, Magnesium 1.8, Total Bilirubin 0.17, AST 49 H , ALT 25, Alkaline Phosphatase 107 H, Total Protein 4.9 L, Albumin 2.7 L, Globulin 2.2, Albumin/Globulin Ratio 1.2 Radiography Diagnostic Testing: Radiology Impression Chest CTA 10/08/24 23:16 IMPRESSION: No obvious major pulmonary arterial thromboembolism. Cardiomegaly with dilated pulmonary artery. No obvious pulmonary masses or consolidations. Reading Location: [place] [address] Physical Exam Const alert, oriented x3 and no apparent distress Constitutional Narrative: Young female, class II obesity, fatigued but otherwise laying back comfortably in bed and in no acute distress. General Appearance: cooperative and comfortable HEENT normocephalic, head/scalp atraumatic, hearing grossly normal bilaterally, nasal mucous membranes and turbinates normal and moist oral mucous membranes Eyes PERRL, EOMs intact bilaterally and conjunctivae normal Neck full ROM Chest inspection of chest normal Resp normal respiratory effort, normal air movement, no use of accessory muscles and clear to auscultation bilaterally Cardio regular rate, regular rhythm, no murmurs and peripheral pulses 2+ throughout GI normal to inspection, nondistended, normoactive bowel sounds, soft to palpation, non-tender and non-distended Narrative: incision site noted, no signs of infection or inflammation. Back/Spine normal ROM Extremity normal to inspection, full ROM and no pedal edema Skin no rashes or lesions noted Psych mental status grossly normal Assessment & Plan Assessment/Plan (1) Sustained SVT: (2) S/P : PLAN: Plan Patient is a 24-year-old female who presented to [facility] on 10/07/[facility]24 for scheduled . Postoperative course complicated by SVT and medicine was consulted for assistance with management. 1. Episode of sustained SVT in setting of history of paroxysmal SVT s/p ablation ? Cardiology consulted. Patient with history of paroxysmal SVT with ablation done in 2023. On home Toprol 25 mg twice daily. Went into episode of sustained SVT on the evening of 10/08. Suspected that this was due to her recent delivery as below. Converted back to normal sinus rhythm after a dose of IV Lopressor 2.5 mg x 1, and has now remained in normal sinus rhythm since then. Echo completed, read pending. Will continue home p.o. Toprol for now. Appreciate cardiology recommendations. 2. Recent delivery ? NATURAL RESOURCE SPECIALIST primary. S/p delivery and fallopian tubes tied on 10/07. Baby healthy and doing well. Further management per NATURAL RESOURCE SPECIALIST. 3. Acute on chronic anemia ? Due to expected blood loss from recent procedure, in setting of mild anemia due to increase blood volume in setting of . Hemoglobin stable at around 8. 4. History of provoked DVT ? History of provoked DVT in 2023. Completed anticoagulation at that time with resolution. CTA chest on evening of 10/08 with no PE noted. No further workup needed at this time. 5. Class II obesity ? BMI 35.1 on admit. Complicates hospital course and care. DVT prophylaxis: Lovenox Total clinical time spent by myself addressing the patient's medical issues, reviewing all the data, and collaborating with patient's care team: 35 minutes. Charges/Coding Visit Charges Inpatient E&M: 81284 Subs Hosp L2
[2024-10-09 09:25] VITALS: PULSE 75
[2024-10-09] MEDS: Senna/Docusate Sodium 1 Tablet PO (09:25)
[2024-10-09] MEDS: Metoprolol(XL)Succ 25 MG Tablet PO (09:25)
--- NOTE | 2024-10-09 10:16 | CASEMGMT ---
Dx:Sustained SVT LACE:1 6-Clicks:24 Medical record reviewed and patient evaluated for identification of discharge planning needs. Based on this review, at this time criteria are not present to indicate a need for discharge planning. Will remain available to assist with discharge planning needs as identified or requested. Pt trf'd from OB. Pt seen by OB JESSICA.
--- NOTE | 2024-10-09 11:33 | PN.OBGYN_ITS ---
Subjective Subjective Doing well per patient and nursing staff. Ambulating and taking PO without difficulty. Voiding and passing flatus. Pain controlled. Denies headache, visual changes, chest pain, shortness of breath, leg pain or increased bleeding. Lochia normal. Feeling better and not feeling SVT symptoms as much after Objective Data Objective Data Vital Signs: Vital Signs Temp Pulse Resp BP Pulse Ox O2 Del Method 99.0 F 75 18 127/66 H 98 Room Air 10/09/24 09:20 10/09/24 09:25 10/09/24 09:20 10/09/24 09:20 10/09/24 09:20 10/09/24 09:42 Oxygen Delivery Method Room Air Weight: 201 lb 15.095 oz Body Mass Index (BMI) 35.7 Intake & Output: Intake and Output for Last 24 Hours 10/07/24 10/08/24 10/09/24 23:59 23:59 23:59 Intake Total 1250 / 1250 1000 / 1000 1000 / 1000 Output Total 2100 / 2100 300 / 300 300 / 300 Balance -850 / -850 700 / 700 700 / 700 Lab / Micro Data 10/09/24 05:32 10/09/24 03:20 Labs: Laboratory Results - last 24 hr 10/08/24 22:02: WBC 8.2, RBC 2.83 L, Hgb 8.0 L, Hct 25.3 L, MCV 89.4, MCH 28.3, MCHC 31.6 L, RDW Std Deviation 74.8 H, RDW Coeff of Lorna 23.6 H, Plt Count 111 L, MPV TNP, Immature Gran % (Auto) 1.000 H, Neut % (Auto) 61.5, Lymph % (Auto) 26.9, [place] % (Auto) 8.9, Eos % (Auto) 1.5, Baso % (Auto) 0.2, Absolute Neuts (auto) 5.1, Absolute Lymphs (auto) 2.21, Nucleated RBC % 0, Differential Comment SCANNED, Polychromasia RARE, Anisocytosis 1+, Microcytosis RARE, Macrocytosis RARE, Ovalocytes RARE, D-Dimer Quant (PE/DVT) 0.94 H*, Sodium 136, Potassium 3.9, Chloride 104, Carbon Dioxide 19.1 L, Anion Gap 13, BUN 16, Creatinine 0.61 L, Estim Creat Clear Calc 155.08, Est GFR (MDRD) Non-Af 129, BUN/Creatinine Ratio 26.5 H, Glucose 84, Calcium 8.0, Phosphorus 3.5, Magnesium 1.7, Total Bilirubin < 0.15, AST 50 H, ALT 29, Alkaline Phosphatase 109 H, Troponin T High Sens 13, Total Protein 4.7 L, Albumin 2.7 L, Globulin 2.1 L, Albumin/Globulin Ratio 1.3, TSH 3.050 10/09/24 01:02: Troponin T Hi Sens 2 Hr 34 H 10/09/24 03:20: Sodium 134, Potassium 4.1, Chloride 104, Carbon Dioxide 17.3 L, Anion Gap 13, BUN 14, Creatinine 0.57 L, Estim Creat Clear Calc 165.97, Est GFR (MDRD) Non-Af 132, BUN/Creatinine Ratio 24.2 H, Glucose 69 L, Calcium 8.1, T roponin T Hi Sens 4Hr 40 H 10/09/24 04:00: Urine Color SEE COMMENT BELOW, Urine Clarity Turbid, Urine pH 6.0, Ur Specific [place] 1.015, Urine Protein 100 H, Urine Glucose (UA) Normal, Urine Ketones Negative, Urine Occult Blood 250 H, Urine Nitrite Negative, Urine Bilirubin Negative, Urine Urobilinogen Normal, Ur Leukocyte Esterase 100 H, Urine RBC > 100 SEEN, Urine WBC 50-100 SEEN, Ur Squamous Epith Cells 5-10 SEEN, Urine Bacteria 1+, Urine Mucus 0 SEEN 10/09/24 05:30: Urine Opiates Screen NEGATIVE, U Buprenorphine Qual NEGATIVE, Ur Oxycodone Screen PRESUMPTIVE POSITIVE, Urine Methadone Screen NEGATIVE, Urine Fentanyl Screen PRESUMPTIVE POSITIVE, Ur Barbiturates Screen NEGATIVE, Ur Phencyclidine Scrn NEGATIVE, Ur Amphetamines Screen NEGATIVE, U Benzodiazepines Scrn NEGATIVE, Urine Cocaine Screen NEGATIVE, U Cannabinoids Screen NEGATIVE 10/09/24 05:32: WBC 7.2, RBC 2.89 L, Hgb 8.2 L, Hct 26.4 L, MCV 91.3, MCH 28.4, MCHC 31.1 L, RDW Std Deviation 78.7 H, RDW Coeff of Lorna 24.1 H, Plt Count 105 L, MPV 14.3 H, Immature Gran % (Auto) 0.800, Neut % (Auto) 59.1, Lymph % (Auto) 28.7, [place] % (Auto) 8.9, Eos % (Auto) 2.1, Baso % (Auto) 0.4, Absolute Neuts (auto) 4.3, Absolute Lymphs (auto) 2.07, Nucleated RBC % 0.3, Anisocytosis 2+, Sodium Cancelled, Potassium Cancelled, Chloride Cancelled, Carbon Dioxide Cancelled, Anion Gap Cancelled, BUN Cancelled, Creatinine Cancelled, Est GFR (MDRD) Non-Af Cancelled, BUN/Creatinine Ratio Cancelled, Glucose Cancelled, Calcium Cancelled, Phosphorus 3.8, Magnesium 1.8, Total Bilirubin 0.17, AST 49 H , ALT 25, Alkaline Phosphatase 107 H, Total Protein 4.9 L, Albumin 2.7 L, Globulin 2.2, Albumin/Globulin Ratio 1.2 Radiography Diagnostic Testing: Radiology Impression Echocardiogram 10/08/24 20:29 Interpretation Summary The estimated ejection fraction is 45-50 %. Mild LV systolic dysfunction No significant valvular abnormalities No previous echo to compare Ordering Physician: Carlos Villa Referring Physician: Myra Gee Performed By: Nate Cuevas, [facility] Chest CTA 10/08/24 23:16 IMPRESSION: No obvious major pulmonary arterial thromboembolism. Cardiomegaly with dilated pulmonary artery. No obvious pulmonary masses or consolidations. Reading Location: [address] Constitutional Constitutional: Reports systems reviewed and no addt'l complaints, except as documented; Denies headache(s) Eyes Eyes: Denies acute decrease in peripheral vision, blurry vision or change in vision ENT HEENT: Reports systems reviewed and no addt'l complaints, except as documented Cardiovascular Cardiovascular: Denies chest pain or dizziness Respiratory/Chest Respiratory/Chest: Denies cough, dyspnea, dyspnea on exertion, shortness of breath at rest or shortness of breath with exertion Gastrointestinal Gastrointestinal: Denies abdominal pain, diarrhea, nausea or vomiting Genitourinary Genitourinary: Denies abdominal discomfort Musculoskeletal Musculoskeletal: Denies limited range of motion Integumentary Integumentary: Reports systems reviewed and no addt'l complaints, except as documented Neurologic Neurologic: Reports systems reviewed and no addt'l complaints, except as documented Psychiatric Psychiatric: Reports systems reviewed and no addt'l complaints, except as documented Endocrine Endocrinology: Reports systems reviewed and no addt'l complaints, except as documented Hematologic/Lymphatic Hematologic/Lymphatic: Reports systems reviewed and no addt'l complaints, except as documented Allergic/Immunologic Allergic/Immunologic: Reports systems reviewed and no addt'l complaints, except as documented Physical Exam Const alert and oriented x3 General Appearance: cooperative Orientation / Consciousness: awake, oriented to person, oriented to place and oriented to time Exam Limitations: no limitations HEENT normocephalic Head and Scalp: normal to inspection, normocephalic and atraumatic Face and Sinus: normal facial exam Eyes General Eye: normal appearance of both eyes Neck full ROM Chest Chest: symmetrical chest wall rise Resp normal respiratory effort and normal air movement Auscultation: clear to auscultation bilaterally Cardio regular rate, regular rhythm, S1 normal heart sound and S2 normal heart sound GI normal to inspection, nondistended, normoactive bowel sounds and non-tender GI Narrative: Fundus firm 2 below U appearance of the vagina normal Narrative: Normal lochia rubra Bladder / Kidney Exam: no CVA tenderness Back/Spine normal ROM Extremity normal to inspection and full ROM Skin no rashes or lesions noted Neuro oriented x3, CN's II-XII intact bilaterally and moves all extremities Sensorium / Orientation: awake, alert and oriented to person Motor Exam: clonus absent Deep Tendon Reflexes: Rt Patellar (L4): 2+ and Lt Patellar (L4): 2+ Assessment & Plan (1) History of pulmonary embolism: (2) Obesity (BMI 30.0-34.9): (3) Elevated d-dimer: (4) Sustained SVT: (5) S/P : (6) Sterilization: (7) History of anxiety: (8) History of depression: (9) Acute blood loss anemia: PLAN: Plan 1) Routine care, POD #2 2) Vitals signs stable 3) Pain controlled 4) Per cardiology consultation, will continue Metoprolol 25mg PO once daily, Lisinopril 5mg PO once daily added, follow up with outpatient cardiology 5) Lovenox for prophylaxis due to history of postsurgical PE. Sent to [facility] in office on 10/07 6) Hgb 8.2, will give 200mg Iron sucrose IV x1 7) D/C home, Follow up in 1 weeks and 6 weeks
[2024-10-09 12:00] VITALS: BP 121/66; PULSE 98; RESP 18; TEMP 37; O2SAT 99
--- NOTE | 2024-10-09 12:12 | PCM.DC.SUM ---
Providers Date of Admission: 10/07/24 Primary Care Physician: ZIA Duke Consultations 10/08/24 20:07 Consult: Hospitalist Stat Consulting Provider: Yamila Ballard Reason for Consult: Currently in SVT FOR 2.5 HOURS EMERGENT Consult: Yes Notified: Yes Date Notified: 10/08/24 Time Notified: 20:09 Method of Notification: Verbal 10/08/24 20:38 Consult: Cardiology Routine Consulting Provider: Grant eLmus Reason for Consult: Sustained SVT 2 days . EMERGENT Consult: No MD Notified: Yes Date Notified: 10/08/24 Time Notified: 20:39 Method of Notification: Verbal Method of Consult:: In-Person Reason For Visit: SUSTAINED SVT Diagnosis Discharge Diagnosis (1) Sustained SVT: Status: Acute Code(s): I47.10 - Supraventricular tachycardia, unspecified (2) S/P : Status: Acute Code(s): Z98.891 - History of uterine scar from previous surgery Medications at Discharge Home Medications vit no.95-ferrous fumarate 28 mg-folic acid 800 mcg tablet () 1 tab PO DAILY 11/12/22 aspirin 81 mg capsule 81 mg PO DAILY 09/08/24 metoprolol succinate 25 mg tablet,extended release 24 hr 25 mg PO BID SVT 09/08/24 acetaminophen 325 mg tablet 650 mg (2 x 325 mg) PO Q6H PRN PRN Pain 1-5/10 or Fever #0 tabs 10/09/24 enoxaparin 40 mg/0.4 mL subcutaneous syringe 40 mg (0.4 mL) subcut Q24 #0 mL 10/09/24 famotidine 20 mg tablet 20 mg PO DAILY #0 tabs 10/09/24 ibuprofen 600 mg tablet 600 mg PO Q6 7 days #30 tabs 10/09/24 lisinopril 5 mg tablet 5 mg PO DAILY #30 tabs 10/09/24 oxycodone 5 mg tablet 5 mg PO Q6H 7 days #14 tabs 10/09/24 sennosides 8.6 mg-docusate sodium 50 mg tablet (Stimulant Laxative Plus) 1 - 2 tab PO DAILY #30 tabs 10/09/24 Weight / BMI Weight Weight: 201 lb 15.095 oz Body Mass Index (BMI) 35.7 ABG / Lab / Microbiology Data 10/09/24 05:32 10/09/24 03:20 Laboratory: Laboratory Results - last 24 hr 10/08/24 22:02: WBC 8.2, RBC 2.83 L, Hgb 8.0 L, Hct 25.3 L, MCV 89.4, MCH 28.3, MCHC 31.6 L, RDW Std Deviation 74.8 H, RDW Coeff of Lorna 23.6 H, Plt Count 111 L, MPV TNP, Immature Gran % (Auto) 1.000 H, Neut % (Auto) 61.5, Lymph % (Auto) 26.9, [place] % (Auto) 8.9, Eos % (Auto) 1.5, Baso % (Auto) 0.2, Absolute Neuts (auto) 5.1, Absolute Lymphs (auto) 2.21, Nucleated RBC % 0, Differential Comment SCANNED, Polychromasia RARE, Anisocytosis 1+, Microcytosis RARE, Macrocytosis RARE, Ovalocytes RARE, D-Dimer Quant (PE/DVT) 0.94 H*, Sodium 136, Potassium 3.9, Chloride 104, Carbon Dioxide 19.1 L, Anion Gap 13, BUN 16, Creatinine 0.61 L, Estim Creat Clear Calc 155.08, Est GFR (MDRD) Non-Af 129, BUN/Creatinine Ratio 26.5 H, Glucose 84, Calcium 8.0, Phosphorus 3.5, Magnesium 1.7, Total Bilirubin < 0.15, AST 50 H, ALT 29, Alkaline Phosphatase 109 H, Troponin T High Sens 13, Total Protein 4.7 L, Albumin 2.7 L, Globulin 2.1 L, Albumin/Globulin Ratio 1.3, TSH 3.050 10/09/24 01:02: Troponin T Hi Sens 2 Hr 34 H 10/09/24 03:20: Sodium 134, Potassium 4.1, Chloride 104, Carbon Dioxide 17.3 L, Anion Gap 13, BUN 14, Creatinine 0.57 L, Estim Creat Clear Calc 165.97, Est GFR (MDRD) Non-Af 132, BUN/Creatinine Ratio 24.2 H, Glucose 69 L, Calcium 8.1, Troponin T Hi Sens 4Hr 40 H 10/09/24 04:00: Urine Color SEE COMMENT BELOW, Urine Clarity Turbid, Urine pH 6.0, Ur Specific [place] 1.015, Urine Protein 100 H, Urine Glucose (UA) Normal, Urine Ketones Negative, Urine Occult Blood 250 H, Urine Nitrite Negative, Urine Bilirubin Negative, Urine Urobilinogen Normal, Ur Leukocyte Esterase 100 H, Urine RBC > 100 SEEN, Urine WBC 50-100 SEEN, Ur Squamous Epith Cells 5-10 SEEN, Urine Bacteria 1+, Urine Mucus 0 SEEN 10/09/24 05:30: Urine Opiates Screen NEGATIVE, U Buprenorphine Qual NEGATIVE, Ur Oxycodone Screen PRESUMPTIVE POSITIVE, Urine Methadone Screen NEGATIVE, Urine Fentanyl Screen PRESUMPTIVE POSITIVE, Ur Barbiturates Screen NEGATIVE, Ur Phencyclidine Scrn NEGATIVE, Ur Amphetamines Screen NEGATIVE, U Benzodiazepines Scrn NEGATIVE, Urine Cocaine Screen NEGATIVE, U Cannabinoids Screen NEGATIVE 10/09/24 05:32: WBC 7.2, RBC 2.89 L, Hgb 8.2 L, Hct 26.4 L, MCV 91.3, MCH 28.4, MCHC 31.1 L, RDW Std Deviation 78.7 H, RDW Coeff of Lorna 24.1 H, Plt Count 105 L, MPV 14.3 H, Immature Gran % (Auto) 0.800, Neut % (Auto) 59.1, Lymph % (Auto) 28.7, [place] % (Auto) 8.9, Eos % (Auto) 2.1, Baso % (Auto) 0.4, Absolute Neuts (auto) 4.3, Absolute Lymphs (auto) 2.07, Nucleated RBC % 0.3, Anisocytosis 2+, Sodium Cancelled, Potassium Cancelled, Chloride Cancelled, Carbon Dioxide Cancelled, Anion Gap Cancelled, BUN Cancelled, Creatinine Cancelled, Est GFR (MDRD) Non-Af Cancelled, BUN/Creatinine Ratio Cancelled, Glucose Cancelled, Calcium Cancelled, Phosphorus 3.8, Magnesium 1.8, Total Bilirubin 0.17, AST 49 H, ALT 25, Alkaline Phosphatase 107 H, Total Protein 4.9 L, Albumin 2.7 L, Globulin 2.2, Albumin/Globulin Ratio 1.2 Radiography Diagnostic Testing: Radiology Impression Echocardiogram 10/08/24 20:29 Interpretation Summary The estimated ejection fraction is 45-50 %. Mild LV systolic dysfunction No significant valvular abnormalities No previous echo to compare Ordering Physician: Carlos Villa Referring Physician: Myra Gee Performed By: Nate Cuevas RCS Chest CTA 10/08/24 23:16 IMPRESSION: No obvious major pulmonary arterial thromboembolism. Cardiomegaly with dilated pulmonary artery. No obvious pulmonary masses or consolidations. Reading [facility] [address] D/C Instructions DC O2, CPAP, BIPAP Needs Home O2 Discharge instructions: No Meaningful Use Info Meaningful Use Meaningful Use Diagnoses (Choose all that apply): None applicable Discharge Plan Admission Admit Date/Time: 10/07/24 00:32 Primary Reason for Your Visit: section Attending Provider: Myra Gee Primary Care Provider: Rachell Winn SCHEDULING SPECIALIST Consulting Providers: Genesis Vargas; Mary Summers; Ryan Danielson; Boby Lopez; Huan Peace; Ace Gann; Doc Jacob; Jose Roberto Baker; Carlos Pelletier; Fortunato Clark; Puneet Trevino; Jak Pearson; Jluis Ramirez; Julio César Hogan; Fabián Jones; Joey Reddy NP; Corinne العلي PA; Shay Tejada; Yamila Ballard Discharge Orders/Prescriptions Prescriptions: New enoxaparin 40 mg/0.4 mL Syringe 40 mg subcut Q24 Qty: 0 0RF ibuprofen 600 mg Tablet 600 mg PO Q6 7 Days Qty: 30 0RF oxycodone 5 mg Tablet 5 mg PO Q6H 7 Days Qty: 14 0RF sennosides-docusate sodium [Stimulant Laxative Plus] 8.6-50 mg Tablet 1 - 2 tab PO DAILY Qty: 30 0RF lisinopril 5 mg Tablet 5 mg PO DAILY Qty: 30 0RF acetaminophen 325 mg Tablet 650 mg PO Q6H PRN PRN (Reason: Pain 1-5/10 or Fever) Qty: 0 0RF famotidine 20 mg Tablet 20 mg PO DAILY Qty: 0 0RF Continued PNV no.95-ferrous fumarate-FA [] 28 mg iron- 800 mcg tablet 1 tab PO DAILY Patient Comments: TAKE 1 TABLET BY MOUTH EVERY DAY metoprolol succinate 25 mg tablet extended release 24 hr 25 mg PO BID No Action aspirin 81 mg capsule 81 mg PO DAILY Referrals / Follow Up: Rachell Winn NP, SCHEDULING SPECIALIST-C [Primary Care Provider] - Yamial Ballard MD [Med Staff - Active Staff] - (1 week for incision check. Cardiology notify early next week for outpatient follow up. ) Disposition Disposition (needs filled in before D/C Order can be placed): Home, Self Care
--- NOTE | 2024-10-09 12:19 | PCM.CONS.C ---
Assessment & Plan Assessment/Plan (1) History of pulmonary embolism: (2) Obesity (BMI 30.0-34.9): (3) Elevated d-dimer: (4) H/O cardiac radiofrequency ablation: (5) S/P : (6) Sustained SVT: PLAN: 24-year-old patient with history of recent 2 days ago. Has episode of SVT. And has been on beta-yanira with metoprolol. In this admission patient has mild elevation of D-dimer she had a history of DVT and has been on anticoagulation CTA chest with IV contrast negative for PE. Review of the lunchroom monitor showed normal sinus rhythm The EKG showed evidence of SVT which converted to sinus rhythm. Echocardiogram showed mildly reduced LV systolic function with ejection fraction in the range of 45-50% Cardiac recommendation; 1. Continue on beta-yanira added low-dose SHIRA inhibitor with lisinopril as tolerated by the blood pressure 2. Will defer to the medical team in regard to the anemia and recommend to follow-up with the cardiology team at [facility] For continuation of cardiac care. 3. Patient can be discharged from cardiac standpoint. Fortunato Clark MD,[facility] horse stud worker HPI Consult Data Date of Consult: 10/09/24 HPI Narrative Reason for Consultation: /SVT HPI Narrative: KEAGAN ALICIA, is a 24 F who [facility] Medical History (Updated 10/09/24 @ 12:22 by Jaquelin Galindo CNM) Pulmonary embolism Anxiety depression Depression Home Medications ?Medication ?Instructions ?Recorded ?Last Taken ?Type vit no.95-ferrous 1 tab PO DAILY 11/12/22 10/06/24 History fumarate 28 mg-folic acid 800 mcg tablet () aspirin 81 mg capsule 81 mg PO DAILY 09/08/24 10/06/24 History metoprolol succinate 25 mg 25 mg PO BID SVT 09/08/24 10/06/24 History tablet,extended release 24 hr Allergy/AdvReac Type Severity Reaction Status Date / Time latex AdvReac Mild Itching Verified 10/07/24 00:34 Family History Father Drug abuse Surgical History H/O cardiac radiofrequency ablation Hx of cholecystectomy History of tonsillectomy and adenoidectomy Social History household members: children Smoking Status: Current every day smoker tobacco type: e-cigarettes Physical Exam Cardio Cardio Narrative: Seen and evaluated at bedside along with the nursing staff Mother at bedside Reviewed all the current evaluation in the hospital. Comfortable sitting out in the chair. No symptoms reported Cardiac rhythm revealed normal sinus rhythm Cardiac exam S1-S2 is regular Chest exam is clear auscultation bilateral. Objective Data Vital Signs: Vital Signs Temp Pulse Resp BP Pulse Ox O2 Del Method 99.0 F 75 18 127/66 H 98 Room Air 10/09/24 09:20 10/09/24 09:25 10/09/24 09:20 10/09/24 09:20 10/09/24 09:20 10/09/24 09:42 Oxygen Delivery Method Room Air Weight: 201 lb 15.095 oz Body Mass Index (BMI) 35.7 Intake & Output: Intake and Output for Last 24 Hours 10/07/24 10/08/24 10/09/24 23:59 23:59 23:59 Intake Total 1250 / 1250 1000 / 1000 1000 / 1000 Output Total 2100 / 2100 300 / 300 300 / 300 Balance -850 / -850 700 / 700 700 / 700 Lab / Micro Data 10/09/24 05:32 10/09/24 03:20 Labs: Laboratory Results - last 24 hr 10/08/24 22:02: WBC 8.2, RBC 2.83 L, Hgb 8.0 L, Hct 25.3 L, MCV 89.4, MCH 28.3, MCHC 31.6 L, RDW Std Deviation 74.8 H, RDW Coeff of Lorna 23.6 H, Plt Count 111 L, MPV TNP, Immature Gran % (Auto) 1.000 H, Neut % (Auto) 61.5, Lymph % (Auto) 26.9, [place] % (Auto) 8.9, Eos % (Auto) 1.5, Baso % (Auto) 0.2, Absolute Neuts (auto) 5.1, Absolute Lymphs (auto) 2.21, Nucleated RBC % 0, Differential Comment SCANNED, Polychromasia RARE, Anisocytosis 1+, Microcytosis RARE, Macrocytosis RARE, Ovalocytes RARE, D-Dimer Quant (PE/DVT) 0.94 H*, Sodium 136, Potassium 3.9, Chloride 104, Carbon Dioxide 19.1 L, Anion Gap 13, BUN 16, Creatinine 0.61 L, Estim Creat Clear Calc 155.08, Est GFR (MDRD) Non-Af 129, BUN/Creatinine Ratio 26.5 H, Glucose 84, Calcium 8.0, Phosphorus 3.5, Magnesium 1.7, Total Bilirubin < 0.15, AST 50 H, ALT 29, Alkaline Phosphatase 109 H, Troponin T High Sens 13, Total Protein 4.7 L, Albumin 2.7 L, Globulin 2.1 L, Albumin/Globulin Ratio 1.3, TSH 3.050 10/09/24 01:02: Troponin T Hi Sens 2 Hr 34 H 10/09/24 03:20: Sodium 134, Potassium 4.1, Chloride 104, Carbon Dioxide 17.3 L, Anion Gap 13, BUN 14, Creatinine 0.57 L, Estim Creat Clear Calc 165.97, Est GFR (MDRD) Non-Af 132, BUN/Creatinine Ratio 24.2 H, Glucose 69 L, Calcium 8.1, Troponin T Hi Sens 4Hr 40 H 10/09/24 04:00: Urine Color SEE COMMENT BELOW, Urine Clarity Turbid, Urine pH 6.0, Ur Specific [place] 1.015, Urine Protein 100 H, Urine Glucose (UA) Normal, Urine Ketones Negative, Urine Occult Blood 250 H, Urine Nitrite Negative, Urine Bilirubin Negative, Urine Urobilinogen Normal, Ur Leukocyte Esterase 100 H, Urine RBC > 100 SEEN, Urine WBC 50-100 SEEN, Ur Squamous Epith Cells 5-10 SEEN, Urine Bacteria 1+, Urine Mucus 0 SEEN 10/09/24 05:30: Urine Opiates Screen NEGATIVE, U Buprenorphine Qual NEGATIVE, Ur Oxycodone Screen PRESUMPTIVE POSITIVE, Urine Methadone Screen NEGATIVE, Urine Fentanyl Screen PRESUMPTIVE POSITIVE, Ur Barbiturates Screen NEGATIVE, Ur Phencyclidine Scrn NEGATIVE, Ur Amphetamines Screen NEGATIVE, U Benzodiazepines Scrn NEGATIVE, Urine Cocaine Screen NEGATIVE, U Cannabinoids Screen NEGATIVE 10/09/24 05:32: WBC 7.2, RBC 2.89 L, Hgb 8.2 L, Hct 26.4 L, MCV 91.3, MCH 28.4, MCHC 31.1 L, RDW Std Deviation 78.7 H, RDW Coeff of Lorna 24.1 H, Plt Count 105 L, MPV 14.3 H, Immature Gran % (Auto) 0.800, Neut % (Auto) 59.1, Lymph % (Auto) 28.7, [place] % (Auto) 8.9, Eos % (Auto) 2.1, Baso % (Auto) 0.4, Absolute Neuts (auto) 4.3, Absolute Lymphs (auto) 2.07, Nucleated RBC % 0.3, Anisocytosis 2+, Sodium Cancelled, Potassium Cancelled, Chloride Cancelled, Carbon Dioxide Cancelled, Anion Gap Cancelled, BUN Cancelled, Creatinine Cancelled, Est GFR (MDRD) Non-Af Cancelled, BUN/Creatinine Ratio Cancelled, Glucose Cancelled, Calcium Cancelled, Phosphorus 3.8, Magnesium 1.8, Total Bilirubin 0.17, AST 49 H, ALT 25, Alkaline Phosphatase 107 H, Total Protein 4.9 L, Albumin 2.7 L, Globulin 2.2, Albumin/Globulin Ratio 1.2 Cardiology Labs/Tests 10/08/24 22:02: WBC 8.2, RBC 2.83 L, Hgb 8.0 L, Hct 25.3 L, MCV 89.4, MCH 28.3, MCHC 31.6 L, Plt Count 111 L, MPV TNP, Immature Gran % (Auto) 1.000 H, Neut % (Auto) 61.5, Lymph % (Auto) 26.9, [place] % (Auto) 8.9, Eos % (Auto) 1.5, Baso % (Auto) 0.2, Absolute Neuts (auto) 5.1, Nucleated RBC % 0, D-Dimer Quant (PE/DVT) 0.94 H*, Sodium 136, Potassium 3.9, Chloride 104, Carbon Dioxide 19.1 L, Anion Gap 13, BUN 16, Creatinine 0.61 L, Est GFR (MDRD) Non-Af 129, BUN/Creatinine Ratio 26.5 H, Glucose 84, Calcium 8.0, Phosphorus 3.5, Magnesium 1.7, Total Bilirubin < 0.15 10/09/24 03:20: Sodium 134, Potassium 4.1, Chloride 104, Carbon Dioxide 17.3 L, Anion Gap 13, BUN 14, Creatinine 0.57 L, Est GFR (MDRD) Non-Af 132, BUN/Creatinine Ratio 24.2 H, Glucose 69 L, Calcium 8.1 10/09/24 04:00: Urine Color SEE COMMENT BELOW, Urine Clarity Turbid, Urine pH 6.0, Ur Specific [place] 1.015, Urine Protein 100 H, Urine Glucose (UA) Normal, Urine Ketones Negative, Urine Occult Blood 250 H, Urine Nitrite Negative, Urine Bilirubin Negative, Urine Urobilinogen Normal, Ur Leukocyte Esterase 100 H, Urine RBC > 100 SEEN, Urine WBC 50-100 SEEN 10/09/24 05:32: WBC 7.2, RBC 2.89 L, Hgb 8.2 L, Hct 26.4 L, MCV 91.3, MCH 28.4, MCHC 31.1 L, Plt Count 105 L, MPV 14.3 H, Immature Gran % (Auto) 0.800, Neut % (Auto) 59.1, Lymph % (Auto) 28.7, [place] % (Auto) 8.9, Eos % (Auto) 2.1, Baso % (Auto) 0.4, Absolute Neuts (auto) 4.3, Nucleated RBC % 0.3, Sodium Cancelled, Potassium Cancelled, Chloride Cancelled, Carbon Dioxide Cancelled, Anion Gap Cancelled, BUN Cancelled, Creatinine Cancelled, Est GFR (MDRD) Non-Af Cancelled, BUN/Creatinine Ratio Cancelled, Glucose Cancelled, Calcium Cancelled, Phosphorus 3.8, Magnesium 1.8, Total Bilirubin 0.17 Rhythm: EKG: ECHO: Stress Test: Cardiac Cath: PCI: CT Surgery: Holter monitor: EPS: PPM: CXR: Chest CT Scan: Radiography Diagnostic Testing: Radiology Impression Echocardiogram 10/08/24 20:29 Interpretation Summary The estimated ejection fraction is 45-50 %. Mild LV systolic dysfunction No significant valvular abnormalities No previous echo to compare Ordering Physician: Carlos Villa Referring Physician: Myra Gee Performed By: Brodwolf, Nate, RCS Chest CTA 10/08/24 23:16 IMPRESSION: No obvious major pulmonary arterial thromboembolism. Cardiomegaly with dilated pulmonary artery. No obvious pulmonary masses or consolidations. Reading Location: [place] [id number] FLAVIO Risk Score for UA/STEMI Assesmment (YES = 1) Risk Stratification Applicable: No
[2024-10-09] MEDS: Iron Sucrose Complex 200 MG in 0.9% Normal Saline (100mL Bag) 100 ML 220 MG IV (13:20)
[2024-10-09 14:40] VITALS: BP 124/68; PULSE 96; RESP 16; TEMP 37; O2SAT 100
--- NOTE | 2024-10-09 14:43 | NURSING ---
Per Dr Clark patient should follow up with her EP doctor at [facility], and [facility] for cardiology. Not on dc instructions. Patient and mother expressed understanding of cardiology follow ups that they need to schedule.
[2024-10-10 08:15] LABS: Troponin T High Sens 2 HR 34 ng/L (<=14)
== END 2024-10-09 14:48 | disposition home or self-care (01) | DRG 539 ==
LOC: WP 10:02 → PCU 10-09 04:21
PROVIDERS: Internal Medicine; Admitting Provider Obstetrics & Gynecology; PCP Nurse Practitioner Family; Referring Provider Obstetrics & Gynecology; Visit Provider Obstetrics & Gynecology
DX: O99.42 Diseases of the circulatory system complicating childbirth (principal); I47.10 Supraventricular tachycardia, unspecified; D62 Acute posthemorrhagic anemia; O99.214 Obesity complicating childbirth; F17.210 Nicotine dependence, cigarettes, uncomplicated; O36.63X0 Maternal care for excessive fetal growth, third trimester, not applicable or unspecified; Z86.711 Personal history of pulmonary embolism; O99.43 Diseases of the circulatory system complicating the puerperium; O28.8 Other abnormal findings on antenatal screening of mother; Z30.2 Encounter for sterilization; O69.2XX0 Labor and delivery complicated by other cord entanglement, with compression, not applicable or unspecified; O34.219 Maternal care for unspecified type scar from previous cesarean delivery; Z37.0 Single live birth; E66.812 Obesity, class 2; Z86.718 Personal history of other venous thrombosis and embolism; Z79.899 Other long term (current) drug therapy; Z90.49 Acquired absence of other specified parts of digestive tract; Z3A.39 39 weeks gestation of pregnancy; O99.03 Anemia complicating the puerperium; O99.334 Smoking (tobacco) complicating childbirth
CPT/HCPCS: 36415; 59025; 59050; 71275; 80048; 80053; 80307; 81001; 82040; 82247; 82565; 83735; 84075; 84100; 84155; 84443; 84450; 84460; 84484; 84550; 85025; 85027; 85379; 85461; 86780; 86850; 86900; 86901; 88302; 90384; 93005; 93306; 99221; J1756; Q9967; A4216; G0378; J2405; J2790; J2791